=== PATIENT | female | born 1965 | race Caucasian/White ===

== ENCOUNTER → 2016-06-09 | Outpatient (CLI) | payer OTHER ==
[~2016-06-09] MED LIST: AC500T PO; ACCUPRIL; ACET325T38 PO; ACHD5005 PO; AGM875T PO; ALBU0.632 IH; ALBU17AE23 IH; ALBU17AE3 IH; ALBU2.5V4 IH; ALBU8.5H2 IH; ALPR1T; ALPR1T PO; ALPR1TAB PO; ALPR1TAB2 PO; AMIT150T PO; AMIT25TA9 PO; AMLO10TA82 PO; AMOX500C2 PO; ARPZ10T PO; ASPI-954 PO; ASPI1TAB PO; AZIT-21 PO; BENZ200C25 PO; BETA BLOCKER; BP MED; BSP10T PO; CEFP500T4 PO; CEPH500C PO; CLON0.5T25 PO; CLON1TAB3 PO; CPR500T PO; CYCL10TA9 PO; DCS100C PO; DOXY100C2 PO; DULO60CA6 PO; FLUT1DIS26 IH; GABA-486 PO; GABA-488 PO; GUAI400T51 PO; HYDR-2997 PO; HYDR12.56 PO; HYDR50TA3 PO; IBP800T PO; IBUP-15 PO; IBUP-30 PO; INSU100I16 SQ; IPRA3AMP11 INH; IPRA3AMP19 IH; IPRA4AER IH; LEVO750T24 PO; LINE600T5 PO; LNZ600T PO; LUBI24CA6 PO; LYSI500T13 PO; Levofloxacin PO; MAGN400T6 PO; METF500T8 PO; METH4TAB PO; METR500T PO; MTF500T PO; NABU750T PO; NAPR550T PO; NFCHLORT25 PO; NFPRILOC40 PO; NORT25CA PO; OLAN10TA19 PO; OMEG1CAP51 PO; ONDA8TAB9 PO; ONDAN4ODT PO; ONDN4T PO; OXYB5TAB9 PO; PNT40TEC PO; PRD10T PO; PRD20T PO; PRD50T PO; PREG50C PO; PRM25T PO; PROM25SU10 PR; PROP120C36 PO; PROP80CA4 PO; QUET50TA PO; RT-ALBUINH IH; RT-COMBINH IH; SENN1TAB76 PO; SULF1TAB38 PO; TIOT18CA IH; TIOT18CA2 IH; TOPI100T11 PO; TOPI100T2 PO; TOPI50TA2 PO; TPR25T PO; TRAM50TA2 PO; TRM50T PO; VARE1TAB17 PO; VERA80TA PO; VITAMIN D; ZLP10T PO; [UNRECOGNIZED DRUG - OTHER]; [UNRECOGNIZED DRUG - OTHER] INH
--- NOTE | 2016-06-10 19:15 | Diagnostic Imaging Report ---
EXAMINATION: Digital mammogram bilateral screening. INDICATION: Screening. COMPARISON: This study was compared to the prior exam of 03/19/2011. At this time, there are no current complaints. The current study was also evaluated with a Computer Aided Detection (CAD) system. FINDINGS: There is a mild amount of fibroglandular tissue present in both breasts, similar to the prior exam. No primary or secondary sign of malignancy is noted. IMPRESSION: 1. There is no evidence of malignancy. 2. The patient should have her annual bilateral screening mammogram on schedule in June of 2017. ACR BI-RADS Category 1: Negative. Result letter will be mailed to the patient. Note: At least 10% of breast cancer is not imaged by mammography. Dictated by: Dictated on workstation # [id number]
== END ==
LOC: RAD 10:54
PROVIDERS: ATTEND Nurse Practitioner Community Health
DX: Z12.31 Encounter for screening mammogram for malignant neoplasm of breast (principal)
CPT/HCPCS: 77067

== ENCOUNTER → 2016-09-08 | Outpatient (CLI) | payer OTHER ==
--- NOTE | 2016-09-08 11:51 | Diagnostic Imaging Report ---
INDICATION: Shortness of air and wheezing. COMPARISON: 01/06/2016. FINDINGS: Linear atelectasis within the lingula. Otherwise, lungs are clear. No pleural effusion or pneumothorax. Stable borderline cardiomegaly. Normal pulmonary vasculature. IMPRESSION: Left basilar linear atelectasis. No acute cardiopulmonary process. Dictated by: Dictated on workstation # [id number]
== END ==
LOC: RAD 11:26
PROVIDERS: ATTEND Nurse Practitioner Family
DX: J98.11 Atelectasis (principal); F17.200 Nicotine dependence, unspecified, uncomplicated; R06.2 Wheezing
CPT/HCPCS: 71020

== ENCOUNTER 2016-09-20 15:22 | Inpatient (IN) | payer OTHER ==
[~2016-09-20] VITALS: Ht 177.8 cm; Wt 119.8 kg
--- OUTSIDE RECORDS SUMMARY | 2016-09-20 15:28 | XMS REPORT ---
Author Author DAVID CORNEJO [facility] eClinicalWorks Address Unknown Phone Unavailable Care Team Providers Care Resident Buyer Name Role Phone DAVID CORNEJO Unavailable Allergies No Known Allergies Problems Problem Type Condition Code Onset Dates Condition Status Problem Headache 784.0 Active Problem Urinary tract infection, site not specified 599.0 Active Problem Obstructive chronic bronchitis, with (acute) exacerbation 491.21 Active Problem Need for prophylactic vaccination and inoculation, Influenza V04.81 Active Problem Abdominal pain, epigastric 789.06 Active Problem Unspecified vitamin D deficiency 268.9 Active Problem Unspecified disorder of kidney and ureter 593.9 Active Problem Cervicalgia 723.1 Active Problem Pain in joint, pelvic region and thigh 719.45 Active Problem Acute sinusitis, unspecified 461.9 Active Problem Pure hyperglyceridemia 272.1 Active Problem Anxiety disorder, unspecified F41.9 Active Problem Special screening examination, human papillomavirus [HPV] V73.81 Active Problem Irregular menstrual cycle 626.4 Active Problem Diabetes mellitus without mention of complication, type II or unspecified type, uncontrolled 250.02 Active Problem Abdominal pain, unspecified site 789.00 Active Problem Unspecified peripheral vertigo 386.10 Active Problem Unspecified breast screening V76.10 Active Problem Screening for malignant neoplasm of the cervix V76.2 Active Problem Thrush B37.0 Active Problem Anxiety F41.9 Active Problem Examination of eyes and vision V72.0 Active Problem 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 Active Problem Pain in joint, lower leg 719.46 Active Problem Pain in joint, shoulder region 719.41 Active Problem Abdominal pain, right upper quadrant 789.01 Active Problem Major depressive disorder, recurrent, moderate F33.1 Active Problem Volume depletion, unspecified 276.50 Active Problem Diabetes mellitus without mention of complication, type II or unspecified type, not stated as uncontrolled 250.00 Active Problem Diarrhea 787.91 Active Problem Pain in joint, ankle and foot 719.47 Active Problem Other specified drug dependence, unspecified abuse 304.60 Active Problem Vomiting alone 787.03 Active Problem Dehydration 276.51 Active Problem Acute upper respiratory infections of unspecified site 465.9 Active Problem Unspecified hemorrhoids without mention of complication 455.6 Active Problem Unspecified viral infection, in conditions classified elsewhere and of unspecified site 079.99 Active Problem Migraine G43.909 Active Problem Intestinal infection due to other organism, NEC 008.8 Active Problem Tobacco abuse Z72.0 Active Problem TMJ (sprain of temporomandibular joint) S03.4XXA Active Problem Encounter for tobacco use cessation counseling Z71.6 Active Problem Diabetes E11.9 Active Problem Chronic constipation K59.09 Active Problem Dry mouth R68.2 Active Problem Left knee pain M25.562 Active Problem Chest pain, unspecified 786.50 Active Problem Acute bronchitis with COPD J44.0 Active Problem Cough 786.2 Active Problem Knee pain, left M25.562 Active Problem Unspecified bacterial pneumonia 482.9 Active Problem Yeast vaginitis B37.3 Active Problem Methicillin resistant Staphylococcus aureus 041.12 Active Problem Memory loss R41.3 Active Problem Pneumonia due to other Streptococcus 482.39 Active Problem Enthesopathy of hip region 726.5 Active Problem Other, mixed, or unspecified nondependent drug abuse, 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
[2016-09-20] MEDS ORDERED: RT-ALBUTEROL/IPRATROPIUM 3 ML (DUONEB) VIAL ONE ×2 (15:29→19:44)
--- OUTSIDE RECORDS SUMMARY | 2016-09-20 15:29 | XMS REPORT ---
Author Author DAVID CORNEJO [facility] eClinicalWorks Address Unknown Phone Unavailable Care Team Providers Care Manager Baby Name Role Phone DAVID CORNEJO Unavailable Allergies No Known Allergies Problems Problem Type Condition Code Onset Dates Condition Status Problem Dehydration 276.51 Active Problem Intestinal infection due to other organism, NEC 008.8 Active Problem Unspecified hemorrhoids without mention of complication 455.6 Active Problem Acute upper respiratory infections of unspecified site 465.9 Active Problem Unspecified viral infection, in conditions classified elsewhere and of unspecified site 079.99 Active Problem Pneumonia due to other Streptococcus 482.39 Active Problem Methicillin resistant Staphylococcus aureus 041.12 Active Problem Unspecified bacterial pneumonia 482.9 Active Problem Cough 786.2 Active Problem Unspecified disorder of kidney and ureter 593.9 Active Problem Chest pain, unspecified 786.50 Active Problem Cervicalgia 723.1 Active Problem Nausea with vomiting 787.01 Active Problem Pain in joint, pelvic region and thigh 719.45 Active Problem Pure hyperglyceridemia 272.1 Active Problem Acute sinusitis, unspecified 461.9 Active Problem Abdominal pain, unspecified site 789.00 Active Problem Screening for malignant neoplasm of the cervix V76.2 Active Problem Other specified symptom associated with female genital organs 625.8 Active Problem Dysuria 788.1 Active Problem Pain in joint, lower leg 719.46 Active Problem Unspecified peripheral vertigo 386.10 Active Problem Sprain and strain of other specified sites of hip and thigh 843.8 Active Problem Pain in joint, shoulder region 719.41 Active Problem Irregular menstrual cycle 626.4 Active Problem Abdominal pain, right upper quadrant 789.01 Active Problem Diabetes mellitus without mention of complication, type II or unspecified type, uncontrolled 250.02 Active Problem Major depressive disorder, recurrent, moderate F33.1 Active Problem Unspecified breast screening V76.10 Active Problem Anxiety disorder, unspecified F41.9 Active Problem Special screening examination, human papillomavirus [HPV] V73.81 Active Problem Diabetes mellitus without mention of complication, type II or unspecified type, not stated as uncontrolled 250.00 Active Problem Urinary tract infection, site not specified 599.0 Active Problem Volume depletion, unspecified 276.50 Active Problem Headache 784.0 Active Problem Vomiting alone 787.03 Active Problem Enthesopathy of hip region 726.5 Active Problem Other specified drug dependence, unspecified abuse 304.60 Active Problem Other, mixed, or unspecified nondependent drug abuse, 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 Active Problem Pain in joint, ankle and foot 719.47 Active Problem Abdominal pain, epigastric 789.06 Active Problem Diarrhea 787.91 Active Problem Unspecified vitamin D deficiency 268.9 Active Problem Need for prophylactic vaccination and inoculation, Influenza V04.81 Active Problem Obstructive chronic bronchitis, with (acute) exacerbation 491.21 Active Medications Medication Code System Code Instructions Start Date End Date Status Dosage Cymbalta [facility] [address]-77 60 MG Orally PALS Once a day Dec 20, [address] [facility] [address]-44 150 MG Orally Once a day Jan 19, 2015 1 tablet in the evening Amitriptyline HCl [facility] [address]-31 100 MG Orally voucher Once a day Jan 1 tablet Results No Known Results Summary Purpose eClinicalWorks Submission
--- OUTSIDE RECORDS SUMMARY | 2016-09-20 15:29 | XMS REPORT ---
Author Author ALIZA CARTER [facility] eClinicalWorks Address Unknown Phone Unavailable Care Team Providers Care Roll Mechanic Name Role Phone ALIZA CARTER CP Unavailable Allergies No Known Allergies Problems Problem Type Condition Code Onset Dates Condition Status Problem Acute upper respiratory infections of unspecified site 465.9 Active Problem Dehydration 276.51 Active Problem Unspecified viral infection, in conditions classified elsewhere and of unspecified site 079.99 Active Problem Unspecified hemorrhoids without mention of complication 455.6 Active Problem Pneumonia due to other Streptococcus 482.39 Active Problem Methicillin resistant Staphylococcus aureus 041.12 Active Problem Anxiety disorder, unspecified F41.9 Active Problem Unspecified bacterial pneumonia 482.9 Active Problem Cough 786.2 Active Problem Chest pain, unspecified 786.50 Active Problem Cervicalgia 723.1 Active Problem Nausea with vomiting 787.01 Active Problem Pain in joint, pelvic region and thigh 719.45 Active Problem Sprain and strain of other specified sites of hip and thigh 843.8 Active Problem Acute sinusitis, unspecified 461.9 Active Problem Diabetes mellitus without mention of complication, type II or unspecified type, uncontrolled 250.02 Active Problem Pure hyperglyceridemia 272.1 Active Problem Unspecified peripheral vertigo 386.10 Active Problem Abdominal pain, unspecified site 789.00 Active Problem Enthesopathy of hip region 726.5 Active Problem Other specified symptom associated with female genital organs 625.8 Active Problem Pain in joint, ankle and foot 719.47 Active Problem 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 Active Problem Dysuria 788.1 Active Problem Pain in joint, lower leg 719.46 Active Problem Special screening examination, human papillomavirus [HPV] V73.81 Active Problem Pain in joint, shoulder region 719.41 Active Problem Irregular menstrual cycle 626.4 Active Problem Abdominal pain, right upper quadrant 789.01 Active Problem Screening for malignant neoplasm of the cervix V76.2 Active Problem Major depressive disorder, recurrent, moderate F33.1 Active Problem Unspecified breast screening V76.10 Active Problem Volume depletion, unspecified 276.50 Active Problem Headache 784.0 Active Problem Intestinal infection due to other organism, NEC 008.8 Active Problem Need for prophylactic vaccination and inoculation, Influenza V04.81 Active Problem Other specified drug dependence, unspecified abuse 304.60 Active Problem Other, mixed, or unspecified nondependent drug abuse, 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 Active Problem Diabetes mellitus without mention of complication, type II or unspecified type, not stated as uncontrolled 250.00 Active Problem Urinary tract infection, site not specified 599.0 Active Problem Diarrhea 787.91 Active Problem Unspecified vitamin D deficiency 268.9 Active Problem Vomiting alone 787.03 Active Problem Unspecified disorder of kidney and ureter 593.9 Active Problem Obstructive chronic bronchitis, with (acute) exacerbation 491.21 Active Problem Abdominal pain, epigastric 789.06 Active Medications Medication Code System Code Instructions Start Date End Date Status Dosage Advair Diskus [facility] [address]-61 250 mcg-50 mcg Dec 09, 2013 1 puffs by Inhalation route 2 times per day Ventolin HFA [facility] [address]-55 90 mcg/actuation Dec 09, 2013 inhale 2-4 puff by Inhalation route as needed every 4 hours PRN for cough or wheeze Spiriva HandiHaler [facility] [address]-46 18 MCG Inhalation Once a day 1 capsule Results No Known Results Summary Purpose eClinicalWorks Submission
--- OUTSIDE RECORDS SUMMARY | 2016-09-20 15:29 | XMS REPORT ---
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 Active Problem Headache 784.0 Active 32581199 Problem Need for prophylactic vaccination and inoculation, Influenza V04.81 Active 013908598 Problem Obstructive chronic bronchitis, with (acute) exacerbation 491.21 Active 411231351 Problem Abdominal pain, epigastric 789.06 Active 11740771 Problem Unspecified vitamin D deficiency 268.9 Active 11947820 Problem Unspecified disorder of kidney and ureter 593.9 Active 578816220 Problem Cervicalgia 723.1 Active 60854729 Problem Pure hyperglyceridemia 272.1 Active 895347567 Problem Acute sinusitis, unspecified 461.9 Active 80590734 Problem Pain in joint, pelvic region and thigh 719.45 Active 369927390 Problem Examination of eyes and vision V72.0 Active 846163750 Problem 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 Active Problem Diabetes mellitus without mention of complication, type II or unspecified type, uncontrolled 250.02 Active 293065760 Problem Irregular menstrual cycle 626.4 Active 62118616 Problem Migraine G43.909 Active 66624017 Problem Tobacco abuse Z72.0 Active 41767739 Problem Thrush B37.0 Active 99997309 Problem Anxiety F41.9 Active 84653196 Problem Major depressive disorder, recurrent, moderate F33.1 Active 81123918 Problem Anxiety disorder, unspecified F41.9 Active 046700866 Problem Vomiting alone 787.03 Active 908176695 Problem Diarrhea 787.91 Active 31900128 Problem Pain in joint, shoulder region 719.41 Active 476003663 Problem Abdominal pain, right upper quadrant 789.01 Active 727731147 Problem Pain in joint, ankle and foot 719.47 Active 822705946 Problem Pain in joint, lower leg 719.46 Active 922540056 Problem Diabetes mellitus without mention of complication, type II or unspecified type, not stated as uncontrolled 250.00 Active 693678588 Problem Volume depletion, unspecified 276.50 Active 89319931 Problem Intestinal infection due to other organism, NEC 008.8 Active 12156607 Problem Dehydration 276.51 Active 71975997 Problem TMJ (sprain of temporomandibular joint) S03.4XXA Active 32091582 Problem Other specified drug dependence, unspecified abuse 304.60 Active Problem Diabetes E11.9 Active 333764832 Problem Encounter for tobacco use cessation counseling Z71.6 Active 122726097 Problem Acute bronchitis with COPD J44.0 Active 785084660201248 Problem Knee pain, left M25.562 Active 71024935 Problem Bipolar disorder, unspecified F31.9 Active 88133043 Problem Left knee pain M25.562 Active 22883277 Problem Methicillin resistant Staphylococcus aureus 041.12 Active 824586496 Problem Yeast vaginitis B37.3 Active 76084527 Problem Pneumonia due to other Streptococcus 482.39 Active 90166468 Problem Memory loss R41.3 Active 27704262 Problem Unspecified viral infection, in conditions classified elsewhere and of unspecified site 079.99 Active 09093595 Problem Chronic constipation K59.09 Active 140769773 Problem Unspecified hemorrhoids without mention of complication 455.6 Active 42523436 Problem Dry mouth R68.2 Active 00912402 Problem Acute upper respiratory infections of unspecified site 465.9 Active 52417756 Problem Sprain and strain of other specified sites of hip and thigh 843.8 Active 95889511 Problem Dysuria 788.1 Active 65995588 Problem Chest pain, unspecified 786.50 Active 92824133 Problem Nausea with vomiting 787.01 Active 30429916 Problem Unspecified bacterial pneumonia 482.9 Active 90124064 Problem Cough 786.2 Active 40699336 ALLERGIES Unknown Allergies SOCIAL HISTORY No smoking Hx information available PLAN OF CARE VITAL SIGNS MEDICATIONS Medication Instructions Dosage Frequency Start Date End Date Duration Status Neurontin 100 MG Orally Three times a day 1 capsule 8h Sep, Active RESULTS No Results PROCEDURES No Known procedures IMMUNIZATIONS No Known Immunizations
--- OUTSIDE RECORDS SUMMARY | 2016-09-20 15:30 | XMS REPORT ---
Author Author DAVID CORNEJO [facility] eClinicalWorks Address Unknown Phone Unavailable Care Team Providers Care Pharmaceutical Physician Name Role Phone DAVID CORNEJO CP Unavailable Allergies, Adverse Reactions, Alerts Substance Reaction Event Type Buspar 10 Mg Tablet made legs shaky Non Drug Allergy Amitriptyline 100 Mg Tablet weird behavior Non Drug Allergy Amitriptyline 25 Mg Tablet weird behavior Non Drug Allergy Benzodiazepines NARC ALERT Broke narc contract Non Drug Allergy Narcotic NARC ALERT Broke Narc contract Non Drug Allergy Problems Problem Type Condition Code Onset Dates Condition Status Problem Acute upper respiratory infections of unspecified site 465.9 Active Problem Dehydration 276.51 Active Problem Unspecified viral infection, in conditions classified elsewhere and of unspecified site 079.99 Active Problem Unspecified hemorrhoids without mention of complication 455.6 Active Assessment Bipolar disorder, unspecified F31.9 Active Problem Pneumonia due to other Streptococcus 482.39 Active Assessment Generalized anxiety disorder F41.1 Active Problem Methicillin resistant Staphylococcus aureus 041.12 [...] Instructions Start Date End Date Status Dosage Spiriva HandiHaler [facility] [address]-55 18 MCG Inhalation Once a day 1 capsule Seroquel XR [facility] [address]-26 300 MG Orally Once a day Feb 16, 2015 1 tablet in the evening Albuterol Sulfate [facility] [address]-54 (2.5 MG/3ML) 0.083% Inhalation Three times a day 3 ml Ventolin HFA [facility] [address]-58 90 mcg/actuation Dec 09, 2013 inhale 2-4 puff by Inhalation route as needed every 4 hours PRN for cough or wheeze Amitriptyline HCl [facility] [address]-04 100 MG Orally voucher Once a day Jan 1 tablet Cymbalta [facility] [address]-86 60 MG Orally PALS Twice a day Feb 16, 2015 1 capsule Advair Diskus [facility] [address]-04 250 mcg-50 mcg 1 puff(s) inhaled 2 times a day Dec 09, 2013 1 puffs by Inhalation route 2 times per day Procedures Procedure Coding System Code Date Office Visit, Est Pt., Level 3 CPT-4 41930 Feb 16, 2015 Vital Signs Date/Time: Feb 16, 2015 Cardiac Monitoring Heart Rate 120 bpm Weight 228.0 lbs Height 70 in BMI 32.71 Index Blood Pressure Diastolic 90 mmHg Blood Pressure Systolic 140 mmHg Results No Known Results Summary Purpose eClinicalWorks Submission
--- OUTSIDE RECORDS SUMMARY | 2016-09-20 15:30 | XMS REPORT ---
Author Author DAVID CORNEJO [facility] eClinicalWorks Address Unknown Phone Unavailable Care Team Providers Care Patient Sitter Name Role Phone DAVID CORNEJO CP Unavailable Allergies, Adverse Reactions, Alerts Substance Reaction Event Type Buspar 10 Mg Tablet made legs shaky Non Drug Allergy Benzodiazepines NARC ALERT Broke [...] 461.9 Active Problem Pure hyperglyceridemia 272.1 Active Assessment Major depressive disorder, recurrent, moderate F33.1 Active Problem Anxiety disorder, unspecified F41.9 Active Assessment Bipolar disorder, unspecified F31.9 Active Assessment Generalized anxiety disorder F41.1 Active Problem Special screening examination, human papillomavirus [...] Instructions Start Date End Date Status Dosage Cyclobenzaprine HCl [facility] 82711409191 10 MG TAKE ONE TABLET BY MOUTH THREE TIMES DAILY NEEDED FOR MUSCLE SPASM Diflucan [facility] [address]-52 150 MG Orally Once a day and may repeat in 4 days if infection not better June 14, 2015 1 tablet Amitiza [facility] [address]-76 8 MCG Orally Twice a day June 14, 2015 1 capsule with food Ventolin HFA [facility] [address]-16 90 mcg/actuation Dec 09, 2013 inhale 2-4 puff by Inhalation route as needed every 4 hours PRN for cough or wheeze Seroquel XR [facility] [address]-73 300 MG Orally Once a day Feb 16, 2015 1 tablet in the evening Cymbalta [facility] [address]-37 60 MG Orally PALS Twice a day Feb 16, 2015 1 capsule Amitriptyline HCl [facility] [address]-89 150 MG Orally Once a day May 02, 2015 1 tablet Topamax [facility] [address]-83 50 MG Orally 3 times a day (Voucher) May 02, 2015 1 tablet Advair Diskus [facility] [address]-01 250 mcg-50 mcg Dec 09, 2013 1 puffs by Inhalation route 2 times per day Spiriva HandiHaler [facility] [address]-77 18 MCG Inhalation Once a day 1 capsule Albuterol Sulfate [facility] [address]-82 (2.5 MG/3ML) 0.083% Inhalation Three times a day 3 ml Klonopin [facility] [address]-79 1 MG Orally Twice a day May 02, 2015 1 tablet Procedures Procedure Coding System Code Date MH Office Visit, Est Pt., Level 3 CPT-4 81585 June 20, 2015 No Charge CPT-4 73751 June 20, 2015 Vital Signs Date/Time: June 20, 2015 Cardiac Monitoring Heart Rate 104 bpm Weight 248.2 lbs Height 70 in BMI 35.61 Index Blood Pressure Diastolic 92 mmHg Blood Pressure Systolic 120 mmHg Results No Known Results Summary Purpose eClinicalWorks Submission
--- OUTSIDE RECORDS SUMMARY | 2016-09-20 15:30 | XMS REPORT ---
Author Author MONICA POTTER [facility] eClinicalWorks Address Unknown Phone Unavailable Care Team Providers Care Pet Stylist Name Role Phone MONICA POTTER CP Unavailable Allergies No Known Allergies Problems [...] due to other Streptococcus 482.39 Active Assessment Major depressive disorder, recurrent, moderate F33.1 Active Problem Methicillin resistant Staphylococcus aureus 041.12 [...] Dysuria 788.1 Active Problem Pain in joint, ankle and foot 719.47 Active Problem Unspecified peripheral vertigo 386.10 Active Problem Sprain and strain of other specified sites of hip and thigh 843.8 Active Problem Pain in joint, lower leg 719.46 Active Problem Irregular menstrual cycle 626.4 Active Problem Pain in joint, shoulder region 719.41 Active Problem Diabetes mellitus without mention of complication, type II or unspecified type, uncontrolled 250.02 Active Problem Abdominal pain, right upper quadrant 789.01 Active Problem Unspecified breast screening V76.10 Active Assessment Generalized anxiety disorder F41.1 Active [...] nondependent drug abuse, 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 Active Problem Social phobia 300.23 Active Problem Abdominal pain, epigastric 789.06 Active Problem Diarrhea 787.91 Active Problem Unspecified vitamin D deficiency 268.9 Active Problem Need for prophylactic vaccination and inoculation, Influenza V04.81 Active Problem Obstructive chronic bronchitis, with (acute) exacerbation 491.21 Active Medications No Known Medications Procedures Procedure Coding System Code Date Psych diagnostic evaluation, established patient CPT-4 75651 Dec 19, 2014 Results No Known Results Summary Purpose eClinicalWorks Submission
--- OUTSIDE RECORDS SUMMARY | 2016-09-20 15:30 | XMS REPORT ---
Author Author ALIZA CARTER [facility] eClinicalWorks Address Unknown Phone Unavailable Care Team Providers Care Dialysis Clinical Manager Name Role Phone ALIZA CARTER CP Unavailable Allergies No Known Allergies Problems Problem Type Condition Code Onset Dates Condition Status Problem Need for prophylactic vaccination and inoculation, Influenza V04.81 Active Problem Headache 784.0 Active Problem Abdominal pain, epigastric 789.06 Active Problem Obstructive chronic bronchitis, with (acute) exacerbation 491.21 Active Problem Unspecified vitamin D deficiency 268.9 Active Problem Unspecified disorder of kidney and ureter 593.9 Active Problem Cervicalgia 723.1 Active Problem Pain in joint, pelvic region and thigh 719.45 Active Problem Acute sinusitis, unspecified 461.9 Active Problem Pure hyperglyceridemia 272.1 Active Problem Diabetes mellitus without mention of complication, type II or unspecified type, uncontrolled 250.02 Active Assessment Edema, unspecified type R60.9 Active Problem Major depressive disorder, recurrent, moderate F33.1 Active Assessment Knee pain, left M25.562 Active Problem Anxiety disorder, unspecified F41.9 Active Problem Unspecified breast screening V76.10 Active Problem Special screening examination, human papillomavirus [HPV] V73.81 Active Problem Irregular menstrual cycle 626.4 Active Problem Unspecified peripheral vertigo 386.10 Active Problem Examination of eyes and vision V72.0 Active Problem Screening for malignant neoplasm of the cervix V76.2 Active Problem Abdominal pain, unspecified site 789.00 Active Problem Anxiety F41.9 Active Problem Migraine G43.909 Active Problem 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 Active Problem Thrush B37.0 Active Problem Pain in joint, ankle and foot 719.47 Active Problem Pain in joint, lower leg 719.46 Active Problem Pain in joint, shoulder region 719.41 Active Problem Abdominal pain, right upper quadrant 789.01 Active Problem Intestinal infection due to other organism, NEC 008.8 Active Problem Volume depletion, unspecified 276.50 Active Problem Vomiting alone 787.03 Active Problem Diarrhea 787.91 Active Problem Diabetes mellitus without mention of complication, type II or unspecified type, not stated as uncontrolled 250.00 Active Problem Other specified drug dependence, unspecified abuse 304.60 Active Problem Acute upper respiratory infections of unspecified site 465.9 Active Problem Unspecified hemorrhoids without mention of complication 455.6 Active Problem Unspecified viral infection, in conditions classified elsewhere and of unspecified site 079.99 Active Problem Pneumonia due to other Streptococcus 482.39 Active Problem Tobacco abuse Z72.0 Active Problem Dehydration 276.51 Active Problem TMJ (sprain of temporomandibular joint) S03.4XXA Active Problem Diabetes E11.9 Active Problem Knee pain, left M25.562 Active Problem Encounter for tobacco use cessation counseling Z71.6 Active Problem Left knee pain M25.562 Active Problem Chronic constipation K59.09 Active Problem Bipolar disorder, unspecified F31.9 Active Problem Nausea with vomiting 787.01 Active Problem Memory loss R41.3 Active Problem Chest pain, unspecified 786.50 Active Problem Acute bronchitis with COPD J44.0 Active Problem Cough 786.2 Active Problem Dry mouth R68.2 Active Problem Unspecified bacterial pneumonia 482.9 Active Problem Yeast vaginitis B37.3 Active Problem Methicillin resistant Staphylococcus aureus 041.12 Active Problem Other, mixed, or unspecified nondependent drug abuse, 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 Active Problem Urinary tract infection, site not specified 599.0 Active Problem Other specified symptom associated with female genital organs 625.8 Active Problem Enthesopathy of hip region 726.5 Active Problem Sprain and strain of other specified sites of hip and thigh 843.8 Active Problem Dysuria 788.1 Active Medications Medication Code System Code Instructions Start Date End Date Status Dosage Hydrochlorothiazide [facility] [address]-45 50 mg Orally Once a day September 27, 2015 1 tablet Nabumetone [facility] [address]-41 750 MG Orally Twice a day September 27, 2015 1 tablet Results No Known Results Summary Purpose eClinicalWorks Submission
--- OUTSIDE RECORDS SUMMARY | 2016-09-20 15:30 | XMS REPORT ---
Author Author THOMAS WOLF [facility] eClinicalWorks Address Unknown Phone Unavailable Care Team Providers Care Rn New Graduate Name Role Phone THOMAS WOLF Unavailable Allergies No Known Allergies Problems Problem Type Condition Code Onset Dates Condition Status Problem Obstructive chronic bronchitis, with (acute) exacerbation 491.21 Active Problem Need for prophylactic vaccination and inoculation, Influenza V04.81 Active Problem Unspecified vitamin D deficiency 268.9 Active Problem Abdominal pain, epigastric 789.06 Active Problem Unspecified disorder of kidney and ureter 593.9 Active Problem Cervicalgia 723.1 Active Problem Pain in joint, pelvic region and thigh 719.45 Active Problem Acute sinusitis, unspecified 461.9 Active Problem Pure hyperglyceridemia 272.1 Active Problem Diabetes mellitus without mention of complication, type II or unspecified type, uncontrolled 250.02 Active Problem Irregular menstrual cycle 626.4 Active Problem Abdominal pain, right upper quadrant 789.01 Active Problem Anxiety disorder, unspecified F41.9 Active Problem Major depressive disorder, recurrent, moderate F33.1 Active Problem Screening for malignant neoplasm of the cervix V76.2 Active Problem Unspecified breast screening V76.10 Active Problem Special screening examination, human papillomavirus [HPV] V73.81 Active Problem Examination of eyes and vision V72.0 Active Problem 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 Active Problem Abdominal pain, unspecified site 789.00 Active Problem Unspecified peripheral vertigo 386.10 Active Problem Migraine G43.909 Active Problem Tobacco abuse Z72.0 Active Problem Thrush B37.0 Active Problem Anxiety F41.9 Active Problem Diarrhea 787.91 Active Problem Pain in joint, ankle and foot 719.47 Active Problem Pain in joint, lower leg 719.46 Active Problem Pain in joint, shoulder region 719.41 Active Problem Dehydration 276.51 Active Problem Intestinal infection due to other organism, NEC 008.8 Active Problem Other specified drug dependence, unspecified abuse 304.60 Active Problem Vomiting alone 787.03 Active Problem Volume depletion, unspecified 276.50 Active Problem Diabetes mellitus without mention of complication, type II or unspecified type, not stated as uncontrolled 250.00 Active Problem Unspecified hemorrhoids without mention of complication 455.6 Active Problem Unspecified viral infection, in conditions classified elsewhere and of unspecified site 079.99 Active Problem Pneumonia due to other Streptococcus 482.39 Active Problem Methicillin resistant Staphylococcus aureus 041.12 Active Problem TMJ (sprain of temporomandibular joint) S03.4XXA Active Problem Acute upper respiratory infections of unspecified site 465.9 Active Problem Diabetes E11.9 Active Problem Encounter for tobacco use cessation counseling Z71.6 Active Problem Acute bronchitis with COPD J44.0 Active Problem Knee pain, left M25.562 Active Problem Bipolar disorder, unspecified F31.9 Active Problem Left knee pain M25.562 Active Problem Generalized anxiety disorder F41.1 Active Problem Sprain and strain of other specified sites of hip and thigh 843.8 Active Problem Yeast vaginitis B37.3 Active Problem Nausea with vomiting 787.01 Active Problem Memory loss R41.3 Active Problem Chest pain, unspecified 786.50 Active Problem Chronic constipation K59.09 Active Problem Cough 786.2 Active Problem Dry mouth R68.2 Active Problem Unspecified bacterial pneumonia 482.9 Active Problem Urinary tract infection, site not specified 599.0 Active Problem Headache 784.0 Active Problem Enthesopathy of hip region 726.5 Active Problem Other, mixed, or unspecified nondependent drug abuse, 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 Active Problem Dysuria 788.1 Active Problem Other specified symptom associated with female genital organs 625.8 Active Medications No Known Medications Results No Known Results Summary Purpose eClinicalWorks Submission
--- OUTSIDE RECORDS SUMMARY | 2016-09-20 15:31 | XMS REPORT ---
Author Author DAVID CORNEJO Organization [facility] Address Unknown Care Team Providers Care Cane Flume Chute Operator Name Role Phone DAVID CORENJO Unavailable PROBLEMS Type Condition ICD9-CM Code [id number] Code Onset Dates Condition Status SNOMED Code Problem Headache 784.0 Active 89756680 Problem Urinary tract infection, site not specified 599.0 Active 92594823 Problem Obstructive chronic bronchitis, with (acute) exacerbation 491.21 Active 015972822 Problem Need for prophylactic vaccination and inoculation, Influenza V04.81 Active 859789320 Problem Abdominal pain, epigastric 789.06 Active 28176639 Problem Unspecified vitamin D deficiency 268.9 Active 58203021 Problem Unspecified disorder of kidney and ureter 593.9 Active 574804306 Problem Cervicalgia 723.1 Active 27915193 Problem Pain in joint, pelvic region and thigh 719.45 Active 498637986 Problem Acute sinusitis, unspecified 461.9 Active 14604612 Problem Pure hyperglyceridemia 272.1 Active 231402903 Problem Anxiety disorder, unspecified F41.9 Active 705442915 Assessment Major depressive disorder, recurrent, moderate F33.1 Dec, Active 05918983 Problem Examination of eyes and vision V72.0 Active 301748163 Problem Irregular menstrual cycle 626.4 Active 54479915 Problem Diabetes mellitus without mention of complication, type II or unspecified type, uncontrolled 250.02 Active 960100169 Problem Anxiety F41.9 Active 76206095 Problem Migraine G43.909 Active 35333410 Problem 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 Active Problem Thrush B37.0 Active 02916760 Problem Diabetes E11.9 Active 846437778 Problem Encounter for tobacco use cessation counseling Z71.6 Active 752547180 Problem Tobacco abuse Z72.0 Active 29058054 Problem TMJ (sprain of temporomandibular joint) S03.4XXA Active 95442913 Problem Pain in joint, lower leg 719.46 Active 873622155 Problem Pain in joint, shoulder region 719.41 Active 591356915 Problem Abdominal pain, right upper quadrant 789.01 Active 978716600 Problem Major depressive disorder, recurrent, moderate F33.1 Active 26910392 Problem Volume depletion, unspecified 276.50 Active 46063604 Problem Diabetes mellitus without mention of complication, type II or unspecified type, not stated as uncontrolled 250.00 Active 002646785 Problem Diarrhea 787.91 Active 09188265 Problem Pain in joint, ankle and foot 719.47 Active 658137131 Problem Other specified drug dependence, unspecified abuse 304.60 Active Problem Vomiting alone 787.03 Active 139853440 Problem Dehydration 276.51 Active 31333010 Problem Acute upper respiratory infections of unspecified site 465.9 Active 24284386 Problem Unspecified hemorrhoids without mention of complication 455.6 Active 57222793 Problem Unspecified viral infection, in conditions classified elsewhere and of unspecified site 079.99 Active 87373212 Problem Knee pain, left M25.562 Active 90776705 Problem Intestinal infection due to other organism, NEC 008.8 Active 12480683 Problem Acute bronchitis with COPD J44.0 Active 395898242222408 Problem Memory loss R41.3 Active 61527166 Problem Dry mouth R68.2 Active 43255693 Problem Yeast vaginitis B37.3 Active 96441815 Problem Generalized anxiety disorder F41.1 Active 72745457 Problem Bipolar disorder with depression F31.30 Active 38675954 Problem Chest pain, unspecified 786.50 Active 86338804 Problem Left knee pain M25.562 Active 14867623 Problem Cough 786.2 Active 84101406 Problem Chronic constipation K59.09 Active 912975765 Problem Unspecified bacterial pneumonia 482.9 Active 72022165 Problem Bipolar disorder, current episode depressed, severe, without psychotic features F31.4 Active 54885601 Problem Methicillin resistant Staphylococcus aureus 041.12 Active 565760325 Problem Bipolar disorder, unspecified F31.9 Active 92703349 Problem Pneumonia due to other Streptococcus 482.39 Active 74471103 Problem Enthesopathy of hip region 726.5 Active 12172839 Problem Other, mixed, or unspecified nondependent drug abuse, 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 Active Problem Dysuria 788.1 Active 03884057 Problem Other specified symptom associated with female genital organs 625.8 Active Problem Nausea with vomiting 787.01 Active 32286377 Problem Sprain and strain of other specified sites of hip and thigh 843.8 Active 85357181 ALLERGIES Substance Reaction Event Type Date Status Buspar 10 Mg Tablet made legs shaky Non Drug Allergy Dec, Active Benzodiazepines NARC ALERT Broke narc contract Non Drug Allergy Dec Active Narcotic NARC ALERT Broke Narc contract Non Drug Allergy Dec, Active SOCIAL HISTORY No smoking Hx information available PLAN OF CARE VITAL SIGNS Height 70 in 2016-01-02 Weight 241.3 lbs 2016-01-02 Heart Rate 104 bpm 2016-01-02 Respiratory Rate 20 2016-01-02 BMI 34.62 kg/m2 2016-01-02 Blood pressure systolic 125 mmHg 2016-01-02 Blood pressure diastolic 90 mmHg 2016-01-02 MEDICATIONS Medication Instructions Dosage Frequency Start Date End Date Duration Status Spiriva HandiHaler 18 MCG Inhalation Once a day 1 capsule 24h Active Neurontin 300 MG Orally repository Three times a day 1 capsule 8h Dec, 30 day(s) Active Zyvox 600 MG Orally every 12 hrs 1 tablet 12h Dec, Dec, Active Albuterol Sulfate (2.5 MG/3ML) 0.083% Inhalation Three times a day 3 ml 8h Active Topamax 100 MG Orally Twice a day 1 tablet 12h 30 days Active Fish Oil 1200 MG Orally Once a day 1 capsule 24h Active One Daily Orally Once a day 1 tablet 24h Active Amitiza 24 MCG Orally Twice a day 1 capsule with food 12h Jun, 90 days Active Nabumetone 750 MG Orally Twice a day 1 tablet 12h Sep, Active Zyprexa 10 MG Orally voucher Once a day 1 tablet 24h Dec, 30 day(s) Active Cymbalta 60 MG Orally PALS Twice a day 1 capsule 12h Feb, 30 days Active Advair Diskus 250 mcg-50 mcg 1 puffs by Inhalation route 2 times per day Dec, Active Ventolin HFA 90 mcg/actuation inhale 2-4 puff by Inhalation route as needed every 4 hours PRN for cough or wheeze Dec, Active Olanzapine 2.5 MG Orally - voucher Once a day 1 tablet 24h Dec, 30 day(s) Active Hydrochlorothiazide 50 mg Orally Once a day 1 tablet 24h Sep, Active RESULTS No Results PROCEDURES Procedure Date Ordered Related Diagnosis Body Site MH Office Visit, Est Pt., Level 3 Jan 02, 2016 IMMUNIZATIONS No Known Immunizations
--- OUTSIDE RECORDS SUMMARY | 2016-09-20 15:31 | XMS REPORT ---
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
--- OUTSIDE RECORDS SUMMARY | 2016-09-20 15:31 | XMS REPORT ---
Author Author ALIZA CARTER [facility] eClinicalWorks Address Unknown Phone Unavailable Care Team Providers Care Traffic Operations Manager Name Role Phone ALIZA CARTER CP [...]
--- OUTSIDE RECORDS SUMMARY | 2016-09-20 15:32 | XMS REPORT ---
Author Author DAVID CORNEJO [facility] eClinicalWorks Address Unknown Phone Unavailable Care Team Providers Care Margin Trimmer Name Role Phone DAVID CORNEJO Unavailable Allergies [...]
--- OUTSIDE RECORDS SUMMARY | 2016-09-20 15:32 | XMS REPORT ---
Author Author DAVID CORNEJO [facility] eClinicalWorks Address Unknown Phone Unavailable Care Team Providers Care Insurance Investigator Name Role Phone DAVID CORNEJO CP Unavailable [...] Problem Unspecified breast screening V76.10 Active Assessment Bipolar disorder, unspecified F31.9 Active Problem Special screening examination, human papillomavirus [...] Date End Date Status Dosage Advair Diskus [facility] [address]-24 250 mcg-50 mcg 1 puff(s) inhaled 2 times a day Dec 09, 2013 1 puffs by Inhalation route 2 times per day HydrOXYzine Pamoate [facility] [address]-18 25 MG Orally voucher every 6 hrs Dec 20, 2014 1 capsule as needed Albuterol Sulfate [facility] [address]-43 (2.5 MG/3ML) 0.083% Inhalation Three times a day 3 ml Spiriva HandiHaler [facility] [address]-10 18 MCG Inhalation Once a day 1 capsule Trazodone HCl [facility] [address]-44 100 MG Orally voucher or PALS Once a day Dec 20, 2014 1 tablet at bedtime Cymbalta [facility] [address]-51 60 MG Orally PALS Once a day Dec 20, 2014 1 capsule Seroquel XR [facility] [address]-41 50 MG Orally PALS twice a day Dec 20, 2014 1 tablet Ventolin HFA [facility] [address]-79 90 mcg/actuation Dec 09, 2013 inhale 2-4 puff by Inhalation route as needed every 4 hours PRN for cough or wheeze Procedures Procedure Coding System Code Date Psych diagnostic evaluation w/medical services, new patient CPT-4 51753 Dec 20, 2014 Vital Signs Date/Time: Dec 20, 2014 Cardiac Monitoring Heart Rate 100 bpm Weight 220.7 lbs Height 70 in BMI 31.66 Index Blood Pressure Diastolic 86 mmHg Blood Pressure Systolic 124 mmHg Results No Known Results Summary Purpose eClinicalWorks Submission
--- OUTSIDE RECORDS SUMMARY | 2016-09-20 15:32 | XMS REPORT ---
Author Author DAVID CORNEJO [facility] eClinicalWorks Address Unknown Phone Unavailable Care Team Providers Care Drier Unloader Name Role Phone DAVID CORNEJO CP Unavailable Allergies, Adverse Reactions, Alerts Substance Reaction Event Type Benzodiazepines NARC ALERT Broke narc contract Non Drug Allergy Narcotic NARC ALERT Broke Narc contract Non Drug Allergy Buspar 10 Mg Tablet made legs shaky Non Drug Allergy Problems Problem Type Condition [...] Active Problem Pure hyperglyceridemia 272.1 Active Assessment Bipolar disorder, unspecified F31.9 Active Problem Anxiety disorder, unspecified F41.9 Active Assessment Generalized anxiety disorder F41.1 Active Assessment Major depressive disorder, recurrent, moderate F33.1 Active Problem Special screening examination, human papillomavirus [...] Instructions Start Date End Date Status Dosage Neurontin [facility] [address]-44 100 MG Orally Three times a day September 12, 2015 as directed Spiriva HandiHaler [facility] [address]-59 18 MCG Inhalation Once a day 1 capsule Ventolin HFA [facility] [address]-47 90 mcg/actuation Dec 09, 2013 inhale 2-4 puff by Inhalation route as needed every 4 hours PRN for cough or wheeze Cymbalta [facility] [address]-06 60 MG Orally PALS Twice a day Feb 16, 2015 1 capsule Albuterol Sulfate [facility] [address]-49 (2.5 MG/3ML) 0.083% Inhalation Three times a day 3 ml Topamax [facility] [address]-13 100 MG Orally Twice a day May 02, 2015 1 tablet Advair Diskus [facility] [address]-96 250 mcg-50 mcg Dec 09, 2013 1 puffs by Inhalation route 2 times per day Amitriptyline HCl [facility] [address]-47 150 MG Orally Once a day May 02, 2015 1 tablet Klonopin [facility] [address]-44 1 MG Orally Twice a day May 02, 2015 1 tablet Procedures Procedure Coding System Code Date Office Visit, Est Pt., Level 3 CPT-4 34230 September 12, 2015 Vital Signs Date/Time: September 12, 2015 Cardiac Monitoring Heart Rate 99 bpm Weight 249.0 lbs Height 70 in Blood Pressure Diastolic 96 mmHg Blood Pressure Systolic 138 mmHg Results No Known Results Summary Purpose eClinicalWorks Submission
--- OUTSIDE RECORDS SUMMARY | 2016-09-20 15:32 | XMS REPORT ---
Author Author ALIZA CARTER [facility] eClinicalWorks Address Unknown Phone Unavailable Care Team Providers Care Fingerer Name Role Phone ALIZA CARTER CP Unavailable [...] depressive disorder, recurrent, moderate F33.1 Active Assessment Yeast infection B37.9 Active Problem Anxiety disorder, unspecified F41.9 Active [...] Instructions Start Date End Date Status Dosage Diflucan [facility] [address]-55 150 MG Orally one time. May repeat in 3 days if symptoms persist. Dec 30, 2015 1 tablet Results No Known Results Summary Purpose eClinicalWorks Submission
--- OUTSIDE RECORDS SUMMARY | 2016-09-20 15:32 | XMS REPORT ---
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 Active Problem Enthesopathy of hip region 726.5 Active Problem Headache 784.0 Active Problem Urinary tract infection, site not specified 599.0 Active Problem Need for prophylactic vaccination and inoculation, Influenza V04.81 Active Problem Obstructive chronic bronchitis, with (acute) exacerbation 491.21 Active Problem Abdominal pain, epigastric 789.06 Active Problem Unspecified vitamin D deficiency 268.9 Active Problem Unspecified disorder of kidney and ureter 593.9 Active Problem Cervicalgia 723.1 Active Problem Pain in joint, pelvic region and thigh 719.45 Active Problem Diabetes mellitus without mention of complication, type II or unspecified type, uncontrolled 250.02 Active Problem Pure hyperglyceridemia 272.1 Active Problem Acute sinusitis, unspecified 461.9 Active Problem 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 Active Problem Thrush B37.0 Active Problem Irregular menstrual cycle 626.4 Active Problem Examination of eyes and vision V72.0 Active Problem Tobacco abuse Z72.0 Active Problem TMJ (sprain of temporomandibular joint) S03.4XXA Active Problem Anxiety F41.9 Active Problem Migraine G43.909 Active Problem Abdominal pain, right upper quadrant 789.01 Active Problem Major depressive disorder, recurrent, moderate F33.1 Active Problem Anxiety disorder, unspecified F41.9 Active Problem Other specified drug dependence, unspecified abuse 304.60 Active Problem Vomiting alone 787.03 Active Problem Pain in joint, lower leg 719.46 Active Problem Pain in joint, shoulder region 719.41 Active Problem Diarrhea 787.91 Active Problem Pain in joint, ankle and foot 719.47 Active Problem Volume depletion, unspecified 276.50 Active Problem Intestinal infection due to other organism, NEC 008.8 Active Problem Dehydration 276.51 Active Problem Acute upper respiratory infections of unspecified site 465.9 Active Problem Diabetes E11.9 Active Problem Diabetes mellitus without mention of complication, type II or unspecified type, not stated as uncontrolled 250.00 Active Problem Encounter for tobacco use cessation counseling Z71.6 Active Problem Knee pain, left M25.562 Active Problem Memory loss R41.3 Active Problem Acute bronchitis with COPD J44.0 Active Problem Bipolar disorder, current episode depressed, severe, without psychotic features F31.4 Active Problem Bipolar disorder, unspecified F31.9 Active Problem Generalized anxiety disorder F41.1 Active Problem Unspecified bacterial pneumonia 482.9 Active Problem Dry mouth R68.2 Active Problem Methicillin resistant Staphylococcus aureus 041.12 Active Problem Yeast vaginitis B37.3 Active Problem Pneumonia due to other Streptococcus 482.39 Active Problem Left knee pain M25.562 Active Problem Unspecified viral infection, in conditions classified elsewhere and of unspecified site 079.99 Active Problem Chronic constipation K59.09 Active Problem Unspecified hemorrhoids without mention of complication 455.6 Active Problem Dysuria 788.1 Active Problem Other specified symptom associated with female genital organs 625.8 Active Problem Nausea with vomiting 787.01 Active Problem Sprain and strain of other specified sites of hip and thigh 843.8 Active Problem Cough 786.2 Active Problem Chest pain, unspecified 786.50 Active Medications No Known Medications Results No Known Results Summary Purpose eClinicalWorks Submission
--- OUTSIDE RECORDS SUMMARY | 2016-09-20 15:33 | XMS REPORT ---
Author Author MONICA POTTER [facility] eClinicalWorks Address Unknown Phone Unavailable Care Team Providers Care Clothes Shaker Name Role Phone MONICA POTTER CP Unavailable [...] Problem Chest pain, unspecified 786.50 Active Problem Nausea with vomiting 787.01 Active Problem Sprain and strain of other specified sites of hip and thigh 843.8 Active Problem Enthesopathy of hip region 726.5 Active Problem Other specified symptom associated with female genital organs 625.8 Active Problem Dysuria 788.1 Active Problem Headache 784.0 Active Problem Need for prophylactic vaccination and inoculation, Influenza V04.81 Active Problem Other, mixed, or unspecified nondependent drug abuse, 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 Active Problem Urinary tract infection, site not specified 599.0 Active Problem Unspecified vitamin D deficiency 268.9 Active Problem Unspecified disorder of kidney and ureter 593.9 Active Problem Obstructive chronic bronchitis, with (acute) exacerbation 491.21 Active Problem Abdominal pain, epigastric 789.06 Active Assessment 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 Active Assessment Anxiety disorder, unspecified F41.9 Active Assessment Major depressive disorder, recurrent, moderate F33.1 Active Problem Anxiety disorder, unspecified F41.9 Active Problem Cervicalgia 723.1 Active Problem Pain in joint, pelvic region and thigh 719.45 Active Problem Acute sinusitis, unspecified 461.9 Active Problem Diabetes mellitus without mention of complication, type II or unspecified type, uncontrolled 250.02 Active Problem Pure hyperglyceridemia 272.1 Active Problem Unspecified peripheral vertigo 386.10 Active Problem Abdominal pain, unspecified site 789.00 Active Problem 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 Active Problem Pain in joint, ankle and foot 719.47 Active Problem Special screening examination, human papillomavirus [HPV] V73.81 Active Problem Pain in joint, lower leg 719.46 Active Problem Irregular menstrual cycle 626.4 Active Problem Pain in joint, shoulder region 719.41 Active Problem Screening for malignant neoplasm of the cervix V76.2 Active Problem Abdominal pain, right upper quadrant 789.01 Active Problem Unspecified breast screening V76.10 Active Problem Major depressive disorder, recurrent, moderate F33.1 Active Problem Volume depletion, unspecified 276.50 Active Problem Intestinal infection due to other organism, NEC 008.8 Active Problem Other specified drug dependence, unspecified abuse 304.60 Active Problem Diabetes mellitus without mention of complication, type II or unspecified type, not stated as uncontrolled 250.00 Active Problem Diarrhea 787.91 Active Problem Vomiting alone 787.03 Active Medications No Known Medications Procedures Procedure Coding System Code Date Psychotherapy, patient &/family, 45 minutes, established patient CPT-4 14479 Feb 19, 2015 Results No Known Results Summary Purpose eClinicalWorks Submission
--- OUTSIDE RECORDS SUMMARY | 2016-09-20 15:33 | XMS REPORT ---
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 Active Problem Headache 784.0 Active 03990602 Problem Need for prophylactic vaccination and inoculation, Influenza V04.81 Active 195431608 Problem Obstructive chronic bronchitis, with (acute) exacerbation 491.21 Active 138283747 Problem Abdominal pain, epigastric 789.06 Active 26844008 Problem Unspecified vitamin D deficiency 268.9 Active 45239413 Problem Unspecified disorder of kidney and ureter 593.9 Active 015542887 Problem Cervicalgia 723.1 Active 20416960 Problem Pure hyperglyceridemia 272.1 Active 579447511 Problem Acute sinusitis, unspecified 461.9 Active 45966994 Problem Pain in joint, pelvic region and thigh 719.45 Active 949995555 Problem Examination of eyes and vision V72.0 Active 652340093 Problem 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 Active Problem Diabetes mellitus without mention of complication, type II or unspecified type, uncontrolled 250.02 Active 901850254 Problem Irregular menstrual cycle 626.4 Active 50112085 Problem Migraine G43.909 Active 28944652 Problem Tobacco abuse Z72.0 Active 47048108 Problem Thrush B37.0 Active 68719653 Problem Anxiety F41.9 Active 65875743 Problem Major depressive disorder, recurrent, moderate F33.1 Active 54450846 Problem Anxiety disorder, unspecified F41.9 Active 821797392 Assessment Obesity, unspecified obesity severity, unspecified obesity type E66.9 Oct, Active 131619506 Problem Vomiting alone 787.03 Active 058440877 Problem Diarrhea 787.91 Active 75914794 Problem Pain in joint, shoulder region 719.41 Active 506277980 Problem Abdominal pain, right upper quadrant 789.01 Active 258458235 Problem Pain in joint, ankle and foot 719.47 Active 536362535 Problem Pain in joint, lower leg 719.46 Active 335605551 Problem Diabetes mellitus without mention of complication, type II or unspecified type, not stated as uncontrolled 250.00 Active 529633908 Problem Volume depletion, unspecified 276.50 Active 96511051 Problem Intestinal infection due to other organism, NEC 008.8 Active 32725155 Problem Dehydration 276.51 Active 62192333 Problem TMJ (sprain of temporomandibular joint) S03.4XXA Active 11170016 Problem Other specified drug dependence, unspecified abuse 304.60 Active Problem Diabetes E11.9 Active 022317507 Problem Encounter for tobacco use cessation counseling Z71.6 Active 318002841 Problem Acute bronchitis with COPD J44.0 Active 246173760194699 Problem Knee pain, left M25.562 Active 90083034 Problem Bipolar disorder, unspecified F31.9 Active 50734979 Problem Left knee pain M25.562 Active 34834706 Problem Methicillin resistant Staphylococcus aureus 041.12 Active 327251868 Problem Yeast vaginitis B37.3 Active 47379331 Problem Pneumonia due to other Streptococcus 482.39 Active 06457834 Problem Memory loss R41.3 Active 89340562 Problem Unspecified viral infection, in conditions classified elsewhere and of unspecified site 079.99 Active 32050285 Problem Chronic constipation K59.09 Active 282115834 Problem Unspecified hemorrhoids without mention of complication 455.6 Active 30754401 Problem Dry mouth R68.2 Active 25061668 Problem Acute upper respiratory infections of unspecified site 465.9 Active 83173874 Problem Sprain and strain of other specified sites of hip and thigh 843.8 Active 85477354 Problem Dysuria 788.1 Active 57531056 Problem Chest pain, unspecified 786.50 Active 66680243 Problem Nausea with vomiting 787.01 Active 79017127 Problem Unspecified bacterial pneumonia 482.9 Active 02047052 Problem Cough 786.2 Active 50643986 ALLERGIES Substance Reaction Event Type Date Status Buspar 10 Mg Tablet made legs shaky Non Drug Allergy Oct, Active Benzodiazepines NARC ALERT Broke narc contract Non Drug Allergy Oct Active Narcotic NARC ALERT Broke Narc contract Non Drug Allergy Oct, Active SOCIAL HISTORY No smoking Hx information available PLAN OF CARE VITAL SIGNS Height 70 in 2015-11-06 Weight 241.5 lbs 2015-11-06 Heart Rate 92 bpm 2015-11-06 Respiratory Rate 20 2015-11-06 BMI 34.65 kg/m2 2015-11-06 Blood pressure systolic 120 mmHg 2015-11-06 Blood pressure diastolic 82 mmHg 2015-11-06 MEDICATIONS Medication Instructions Dosage Frequency Start Date End Date Duration Status Advair Diskus 250 mcg-50 mcg 1 puffs by Inhalation route 2 times per day Dec, Active Ventolin HFA 90 mcg/actuation inhale 2-4 puff by Inhalation route as needed every 4 hours PRN for cough or wheeze Dec, Active Klonopin 1 MG Orally Twice a day 1 tablet 12h Apr, Active Contrave 8-90 MG Orally Twice a day 1 tablet in the PM X 7 days, 1 tab twice a day X days, 1 tab in AM and 2 in PM X 7 days 2 tabs twice a day 12h Oct, Active Spiriva HandiHaler 18 MCG Inhalation Once a day 1 capsule 24h Active Topamax 100 MG Orally Twice a day 1 tablet 12h 30 Active Hydrochlorothiazide 50 mg Orally Once a day 1 tablet 24h Sep, 30 day(s) Active Neurontin 100 MG Orally Three times a day as directed 8h Sep, 30 days Active Amitriptyline HCl 150 MG Orally Once a day 1 tablet 24h 24 Apr, 2015 30 days Active Amitiza 24 MCG Orally Twice a day 1 capsule with food 12h Jun, Active Cymbalta 60 MG Orally PALS Twice a day 1 capsule 12h Feb, 30 days Active Albuterol Sulfate (2.5 MG/3ML) 0.083% Inhalation Three times a day 3 ml 8h Active RESULTS No Results PROCEDURES Procedure Date Ordered Related Diagnosis Body Site Office Visit, Est Pt., Level 3 Nov 06, 2015 IMMUNIZATIONS No Known Immunizations
--- OUTSIDE RECORDS SUMMARY | 2016-09-20 15:33 | XMS REPORT ---
Author Author ALICIA VALENCIA [facility] eClinicalWorks Address Unknown Phone Unavailable Care Team Providers Care Nail Professional Name Role Phone ALICIA VALENCIA Unavailable Allergies No Known Allergies Problems Problem [...] 843.8 Active Problem Dysuria 788.1 Active Medications No Known Medications Results No Known Results Summary Purpose eClinicalWorks Submission
--- OUTSIDE RECORDS SUMMARY | 2016-09-20 15:33 | XMS REPORT ---
Author Author HAYLEE GUDINO [facility] eClinicalWorks Address Unknown Phone Unavailable Care Team Providers Care Automotive Product Specialist Name Role Phone HAYLEE GUDINO Unavailable Allergies [...] Problem Anxiety disorder, unspecified F41.9 Active Assessment Osteoarthritis of left knee M17.9 Active Problem Special screening examination, human papillomavirus [...] Office Visit, Est Pt., Level 3 CPT-4 80987 June 21, 2015 DEPO MEDROL 80 MG/ML CPT-4 J1040 June 21, 2015 DRAIN/INJECT, JOINT/BURSA CPT-4 34448 June 21, 2015 Vital Signs Date/Time: June 21, 2015 Blood Pressure Diastolic 90 mmHg Blood Pressure Systolic 138 mmHg Height 70 in Results Name Result Date Reference Range Unit Abnormality Flag JOINT INJECTION-LARGE JOINT (specify site) Summary Purpose eClinicalWorks Submission
--- OUTSIDE RECORDS SUMMARY | 2016-09-20 15:33 | XMS REPORT ---
Author Author [facility] Medical Staff Organization [facility] Address [address] [place], [place] [id number] Phone [phone] Care Team Providers Care Neurosurgical Physician Assistant Name Role Phone ORTIZ TYSON MD PP [phone] ORTIZ TYSON MD, PP [phone] Summary purpose CCDA Sent to [facility] Chief Complaint and Reason for Visit Admit Diagnosis 1 MIGRAINE Problem list No authorized problems tracked for continuity of care are available for this visit. Encounters No authorized problems tracked for encounter diagnoses are available for this visit. Medications No medications recorded for this patient visit Allergies, adverse reactions, alerts Allergen Category Ingredient Status Reaction Severity Onset No Known Drug Allergy No known drug allergies No Known Drug Allergy Active Immunizations No immunizations recorded for this patient visit Relevant diagnostic tests and/or laboratory data No authorized results are available for this patient visit History of procedures Procedure Code Code Type Description Date Performed Performing Physician J1885 CPT-4 KETOROLAC TROMETHAMINE INJ 03-04-2016 YOUNG [facility]TERFIELD J2550 CPT-4 PROMETHAZINE HCL INJECTION 03-04-2016 [facility] 06321 CPT-4 EMERGENCY DEPT VISIT 03-04-2016 [facility] 83078 CPT-4 THER/PROPH/DIAG INJ, SC/IM 03-04-2016 YOUNG [facility]FIELD Functional status Cognitive Status Finding Observation Time Level of Consciousne Alert :50 Oriented to Person Yes :[address] Yes :50 Oriented to Time Yes :50 Eyes - ROSITA Yes :50 Right Pupil Reaction Brisk Constriction :50 Pupil Gauge - Right 3 mm :50 Left Pupil Reaction Brisk Constriction :50 Pupil Gauge - Left E 3 mm :50 Vital signs Type Value Date Respirations 20 96-03-559507:38 Pulse 104 :38 O2 Saturation 97% :38 Systolic Blood Press 120mm/HG 97-19-053058:38 Diastolic Blood Pres 86mm/HG :38 Temperature (Fahr) 97Degrees 84-40-462214:38 Height 69in :50 Weight 233LB 21-38-595746:50 Social history Type Value Smoking Status CURRENT EVERY DAY SMOKER Treatment Plan No treatment plan text is available for this visit. Hospital discharge instructions Diagnosis migraine headache Diet as tolerated Activity Level astolerated Follow up with pcp Appointment Date and this week
--- OUTSIDE RECORDS SUMMARY | 2016-09-20 15:33 | XMS REPORT ---
Author JAMIL [facility] eClinicalWorks Address Unknown Phone Unavailable Care Team Providers Care Homicide Investigator Name Role Phone JAMIL WEISS Unavailable Allergies, Adverse Reactions, Alerts Substance Reaction [...] Active Problem Pure hyperglyceridemia 272.1 Active Assessment Knee pain, left M25.562 Active Problem Anxiety disorder, unspecified F41.9 Active Assessment Diabetes E11.9 Active Assessment Edema, unspecified type R60.9 Active Problem Special screening examination, human papillomavirus [...] Start Date End Date Status Dosage Hydrochlorothiazide [facility] [address]-03 50 mg Orally Once a day September 27, 2015 1 tablet Neurontin [facility] [address]-56 100 MG Orally Three times a day September 12, 2015 as directed Spiriva HandiHaler [facility] [address]-96 18 MCG Inhalation Once a day 1 capsule Albuterol Sulfate [facility] [address]-34 (2.5 MG/3ML) 0.083% Inhalation Three times a day 3 ml Cymbalta [facility] [address]-69 60 MG Orally PALS Twice a day Feb 16, 2015 1 capsule Topamax [facility] 47375700376 100 MG Orally Twice a day 1 tablet Ventolin HFA [facility] [address]-09 90 mcg/actuation Dec 09, 2013 inhale 2-4 puff by Inhalation route as needed every 4 hours PRN for cough or wheeze Advair Diskus [facility] [address]-12 250 mcg-50 mcg Dec 09, 2013 1 puffs by Inhalation route 2 times per day Nabumetone [facility] [address]-17 750 MG Orally Twice a day September 27, 2015 Oct 27, 2015 1 tablet Amitriptyline HCl [facility] [address]-02 150 MG Orally Once a day May 02, 2015 1 tablet Klonopin [facility] [address]-65 1 MG Orally Twice a day May 02, 2015 1 tablet Procedures Procedure Coding System Code Date TORADOL (IM) 60 MG/2ML (UP TO 15 MG) CPT-4 J1885 September 27, 2015 THER/PROPH/DIAG INJ, SC/IM CPT-4 92343 September 27, 2015 Office Visit, Est Pt., Level 4 CPT-4 98546 September 27, 2015 PHENERGAN 50MG/ML CPT-4 J2550 September 27, 2015 Vital Signs Date/Time: September 27, 2015 Cardiac Monitoring Heart Rate 84 bpm Weight 255.3 lbs Height 70 in Blood Pressure Diastolic 90 mmHg Blood Pressure Systolic 136 mmHg Results No Known Results Summary Purpose eClinicalWorks Submission
--- OUTSIDE RECORDS SUMMARY | 2016-09-20 15:34 | XMS REPORT ---
Author Author AYDEN KNIGHT [facility] eClinicalWorks Address Unknown Phone Unavailable Care Team Providers Care Oncology Technician Name Role Phone AYDEN KNIGHT Unavailable Allergies, Adverse Reactions, Alerts Substance Reaction Event Type Buspar 10 Mg Tablet made legs shaky Non Drug Allergy Amitriptyline 100 Mg Tablet weird behavior Non Drug Allergy Amitriptyline 25 Mg Tablet weird behavior Non Drug Allergy Benzodiazepines NARC ALERT Broke narc contract Non Drug Allergy Narcotic NARC ALERT Broke Narc contract Non Drug Allergy Problems Problem Type Condition ICD-9 Code Onset Dates Condition Status Problem Dehydration 276.51 Active Problem Intestinal infection due to other organism, NEC 008.8 Active Problem Unspecified hemorrhoids without mention of complication 455.6 Active Problem Acute upper respiratory infections of unspecified site 465.9 Active Assessment Dysuria 788.1 Active Problem Unspecified viral infection, in conditions classified elsewhere and of unspecified site 079.99 Active Assessment Vomiting and diarrhea 787.03 Active Problem Pneumonia due to other Streptococcus 482.39 Active Assessment Cough 786.2 Active Problem Methicillin resistant Staphylococcus aureus 041.12 [...] Problem Unspecified breast screening V76.10 Active Assessment Headache 784.0 Active Problem Special screening examination, human papillomavirus [...] Instructions Start Date End Date Status Dosage Ventolin HFA [facility] [address]-44 90 mcg/actuation Dec 09, 2013 inhale 2-4 puff by Inhalation route as needed every 4 hours PRN for cough or wheeze Doxycycline Hyclate [facility] [address]-77 100 MG Orally every 12 hrs Oct 30, 2014 Nov 09, 2014 1 capsule Spiriva HandiHaler [facility] [address]-30 18 MCG Inhalation Once a day 1 capsule Advair Diskus [facility] [address]-10 250 mcg-50 mcg 1 puff(s) inhaled 2 times a day Dec 09, 2013 1 puffs by Inhalation route 2 times per day Phenergan [facility] [address]-14 25 MG Oral every 6 hrs prn nausea Oct 30, 2014 Nov 02, 2014 1 tablet Acidophilus [facility] 28464-[address]87 100 MG Orally 2-3 times daily prn diarrhea Oct 30, 2014 1 capsule Procedures Procedure Coding System Code Date MEASURE BLOOD OXYGEN LEVEL CPT-4 73856 Oct 30, 2014 TORADOL (IM) 60 MG/2ML (UP TO 15 MG) CPT-4 J1885 Oct 30, 2014 Office Visit, Est Pt., Level 3 CPT-4 30302 Oct 30, 2014 URINALYSIS, AUTO, W/O SCOPE CPT-4 29829 Oct 30, 2014 THER/PROPH/DIAG INJ, SC/IM CPT-4 84921 Oct 30, 2014 PHENERGAN (IM) 25 MG (25 MG/ML) CPT-4 J2550 Oct 30, 2014 Vital Signs Date/Time: Oct 30, 2014 Temperature 98.6 F Weight 209.8 lbs Height 70 in Oximetry at rest:99 % Blood Pressure Diastolic 80 mmHg Blood Pressure Systolic 160 mmHg Cardiac Monitoring Heart Rate 100 bpm BMI 30.10 Index Results Name Result Date Reference Range Unit Abnormality Flag UA W/CULTURE IF INDICATED (IN HOUSE) Summary Purpose eClinicalWorks Submission
--- OUTSIDE RECORDS SUMMARY | 2016-09-20 15:34 | XMS REPORT ---
Author Author DAVID CORNEJO [facility] eClinicalWorks Address Unknown Phone Unavailable Care Team Providers Care Optics Test Technician Name Role Phone DAVID CORNEJO Unavailable Allergies [...] Start Date End Date Status Dosage Klonopin [facility] [address]-23 1 MG Orally Twice a day May 02, 2015 1 tablet Results No Known Results Summary Purpose eClinicalWorks Submission
--- OUTSIDE RECORDS SUMMARY | 2016-09-20 15:34 | XMS REPORT ---
Author Author ALIZA CARTER [facility] Address [address] [place] [address] Care Team Providers Care Nurse Research Name Role Phone ALIZA CARTER Unavailable PROBLEMS Type Condition ICD9-CM Code OZO61-QH Code Onset Dates Condition Status SNOMED Code Problem Headache 784.0 Active 43565509 Problem Urinary tract infection, site not specified 599.0 Active 27432266 Problem Obstructive chronic bronchitis, with (acute) exacerbation 491.21 Active 480672850 Problem Need for prophylactic vaccination and inoculation, Influenza V04.81 Active 010476383 Problem Abdominal pain, epigastric 789.06 Active 86651726 Problem Unspecified vitamin D deficiency 268.9 Active 30242357 Problem Unspecified disorder of kidney and ureter 593.9 Active 960046449 Problem Cervicalgia 723.1 Active 68027539 Problem Pain in joint, pelvic region and thigh 719.45 Active 769942011 Problem Acute sinusitis, unspecified 461.9 Active 13139467 Problem Pure hyperglyceridemia 272.1 Active 575586433 Problem Anxiety disorder, unspecified F41.9 Active 254700885 Assessment Bronchitis J40 Jan, Active 81328027 Problem Examination of eyes and vision V72.0 Active 719626233 Problem Irregular menstrual cycle 626.4 Active 21060111 Problem Diabetes mellitus without mention of complication, type II or unspecified type, uncontrolled 250.02 Active 235401140 Problem Anxiety F41.9 Active 12133875 Problem Migraine G43.909 Active 10055121 Problem 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 Active Problem Thrush B37.0 Active 89084944 Problem Diabetes E11.9 Active 862488685 Problem Encounter for tobacco use cessation counseling Z71.6 Active 242759217 Problem Tobacco abuse Z72.0 Active 89345482 Problem TMJ (sprain of temporomandibular joint) S03.4XXA Active 60692752 Problem Pain in joint, lower leg 719.46 Active 665708681 Problem Pain in joint, shoulder region 719.41 Active 440891490 Problem Abdominal pain, right upper quadrant 789.01 Active 298560801 Problem Major depressive disorder, recurrent, moderate F33.1 Active 16965086 Problem Volume depletion, unspecified 276.50 Active 86517702 Problem Diabetes mellitus without mention of complication, type II or unspecified type, not stated as uncontrolled 250.00 Active 424099467 Problem Diarrhea 787.91 Active 25221278 Problem Pain in joint, ankle and foot 719.47 Active 635973505 Problem Other specified drug dependence, unspecified abuse 304.60 Active Problem Vomiting alone 787.03 Active 345765938 Problem Dehydration 276.51 Active 68372274 Problem Acute upper respiratory infections of unspecified site 465.9 Active 52569002 Problem Unspecified hemorrhoids without mention of complication 455.6 Active 89980246 Problem Unspecified viral infection, in conditions classified elsewhere and of unspecified site 079.99 Active 30007357 Problem Knee pain, left M25.562 Active 50279689 Problem Intestinal infection due to other organism, NEC 008.8 Active 76426825 Problem Acute bronchitis with COPD J44.0 Active 617898218702008 Problem Memory loss R41.3 Active 71705404 Problem Dry mouth R68.2 Active 83458689 Problem Yeast vaginitis B37.3 Active 04558532 Problem Generalized anxiety disorder F41.1 Active 14314291 Problem Bipolar disorder with depression F31.30 Active 24375160 Problem Chest pain, unspecified 786.50 Active 63315227 Problem Left knee pain M25.562 Active 62461420 Problem Cough 786.2 Active 45144690 Problem Chronic constipation K59.09 Active 909985058 Problem Unspecified bacterial pneumonia 482.9 Active 96929586 Problem Bipolar disorder, current episode depressed, severe, without psychotic features F31.4 Active 13501982 Problem Methicillin resistant Staphylococcus aureus 041.12 Active 411312489 Problem Bipolar disorder, unspecified F31.9 Active 46899366 Problem Pneumonia due to other Streptococcus 482.39 Active 90178136 Problem Enthesopathy of hip region 726.5 Active 56614663 Problem Other, mixed, or unspecified nondependent drug abuse, 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 Active Problem Dysuria 788.1 Active 90026124 Problem Other specified symptom associated with female genital organs 625.8 Active Problem Nausea with vomiting 787.01 Active 42282828 Problem Sprain and strain of other specified sites of hip and thigh 843.8 Active 48192619 ALLERGIES Substance Reaction Event Type Date Status Buspar 10 Mg Tablet made legs shaky Non Drug Allergy Jan, Active Narcotic NARC ALERT Broke Narc contract Non Drug Allergy Jan, Active Benzodiazepines NARC ALERT Broke narc contract Non Drug Allergy Jan Active SOCIAL HISTORY No smoking Hx information available PLAN OF CARE VITAL SIGNS Height 70 in 2016-01-23 Weight 243.7 lbs 2016-01-23 Heart Rate 100 bpm 2016-01-23 Respiratory Rate 25 2016-01-23 BMI 34.96 kg/m2 2016-01-23 Blood pressure systolic 142 mmHg 2016-01-23 Blood pressure diastolic 92 mmHg 2016-01-23 MEDICATIONS Medication Instructions Dosage Frequency Start Date End Date Duration Status Nabumetone 750 MG Orally Twice a day 1 tablet 12h Sep, Active Advair Diskus 250 mcg-50 mcg 1 puffs by Inhalation route 2 times per day Dec, Active Olanzapine 2.5 MG Orally - voucher Once a day 1 tablet 24h Dec, 30 day(s) Active Zyprexa 10 MG Orally voucher Once a day 1 tablet 24h Dec, 30 day(s) Active Zyprexa 2.5 MG TAKE ONE TABLET BY MOUTH ONCE DAILY 30 Active Neurontin 300 MG Orally repository Three times a day 1 capsule 8h Dec, 30 day(s) Active Ventolin HFA 90 mcg/actuation inhale 2-4 puff by Inhalation route as needed every 4 hours PRN for cough or wheeze Dec, Active Topamax 100 MG Orally Twice a day 1 tablet 12h 30 days Active Amitriptyline HCl 150 MG TAKE ONE TABLET BY MOUTH ONCE DAILY 30 Active Contrave 8-90 MG Orally Twice a day 2 tablets 12h Oct, 90 days Active Zithromax Z-Mikie 250 MG Orally Once a day 2 tablets on the first day, then 1 tablet daily for 4 days 24h Jan, Jan, 5 day(s) Active Fish Oil 1200 MG Orally Once a day 1 capsule 24h Active Albuterol Sulfate (2.5 MG/3ML) 0.083% Inhalation Three times a day 3 ml 8h Active Cymbalta 60 MG Orally PALS Twice a day 1 capsule 12h 11 Feb, 2015 30 days Active Hydrochlorothiazide 50 mg Orally Once a day 1 tablet 24h 21 Sep, 2015 Active Spiriva HandiHaler 18 MCG Inhalation Once a day 1 capsule 24h Active One Daily Orally Once a day 1 tablet 24h Active Amitiza 24 MCG Orally Twice a day 1 capsule with food 12h Jun, 90 days Active RESULTS No Results PROCEDURES Procedure Date Ordered Related Diagnosis Body Site Office Visit, Est Pt., Level 3 Jan 23, 2016 IMMUNIZATIONS No Known Immunizations
--- OUTSIDE RECORDS SUMMARY | 2016-09-20 15:35 | XMS REPORT ---
Author Author [facility] Medical Staff Organization [facility] Address [address] [place], [place] [id number] Phone [phone] Summary purpose CCDA Sent to [facility] Chief Complaint and Reason for Visit No authorized Reason for Visit (Admitting Diagnosis) is available for this visit. Problem list No authorized problems tracked for [...] Code Type Description Date Performed Performing Physician 27764 CPT-4 EMERGENCY DEPT VISIT 03-04-2016 [place] [place] Functional status No functional or cognitive status observations are available for this visit. Vital signs No authorized vital signs are available for this visit. Social history No Social History or smoking status observations were recorded for this visit. ( Unknown if ever smoked.) Treatment Plan No treatment plan text is available for this visit. Hospital discharge instructions No discharge instruction text is available for this visit.
--- OUTSIDE RECORDS SUMMARY | 2016-09-20 15:35 | XMS REPORT ---
Author Author DAVID CORNEJO [facility] eClinicalWorks Address Unknown Phone Unavailable Care Team Providers Care Bus Assistant Name Role Phone DAVID CORNEJO CP Unavailable Allergies, Adverse Reactions, Alerts Substance Reaction Event Type Narcotic NARC ALERT Broke Narc contract Non Drug Allergy Buspar 10 Mg Tablet made legs shaky Non Drug Allergy Amitriptyline 100 Mg Tablet weird behavior Non Drug Allergy Amitriptyline 25 Mg Tablet weird behavior Non Drug Allergy Benzodiazepines NARC ALERT Broke narc contract Non Drug Allergy Problems Problem Type Condition Code Onset Dates Condition Status Problem Dehydration 276.51 Active Problem Intestinal infection due to other organism, NEC 008.8 Active Problem Unspecified hemorrhoids without mention of complication 455.6 Active Problem Acute upper respiratory infections of unspecified site 465.9 Active Problem Unspecified viral infection, in conditions classified elsewhere and of unspecified site 079.99 Active Assessment Generalized anxiety disorder F41.1 Active Problem Pneumonia due to other Streptococcus 482.39 Active Assessment Bipolar disorder, unspecified F31.9 Active Problem Methicillin resistant Staphylococcus aureus 041.12 [...] Date End Date Status Dosage Ventolin HFA [facility] [address]-89 90 mcg/actuation Dec 09, 2013 inhale 2-4 puff by Inhalation route as needed every 4 hours PRN for cough or wheeze Advair Diskus [facility] [address]-09 250 mcg-50 mcg 1 puff(s) inhaled 2 times a day Dec 09, 2013 1 puffs by Inhalation route 2 times per day Albuterol Sulfate [facility] [address]-29 (2.5 MG/3ML) 0.083% Inhalation Three times a day 3 ml Spiriva HandiHaler [facility] [address]-05 18 MCG Inhalation Once a day 1 capsule Amitriptyline HCl [facility] [address]-17 100 MG Orally voucher Once a day Jan 1 tablet Seroquel XR [facility] [address]-69 150 MG Orally Once a day Jan 19, 2015 1 tablet in the evening Cymbalta [facility] [address]-01 60 MG Orally PALS Once a day Dec 20, 2014 1 capsule Procedures Procedure Coding System Code Date Office Visit, Est Pt., Level 3 CPT-4 26919 Jan 19, 2015 Vital Signs Date/Time: Jan 19, 2015 Cardiac Monitoring Heart Rate 97 bpm Weight 223.0 lbs Height 70 in BMI 31.99 Index Blood Pressure Diastolic 100 mmHg Blood Pressure Systolic 150 mmHg Results No Known Results Summary Purpose eClinicalWorks Submission
--- OUTSIDE RECORDS SUMMARY | 2016-09-20 15:35 | XMS REPORT ---
Author Author DAVID CORNEJO [facility] eClinicalWorks Address Unknown Phone Unavailable Care Team Providers Care Family Medicine Chair Name Role Phone DAVID CORNEJO Unavailable Allergies [...] exacerbation 491.21 Active Medications No Known Medications Results No Known Results Summary Purpose eClinicalWorks Submission
--- OUTSIDE RECORDS SUMMARY | 2016-09-20 15:35 | XMS REPORT ---
Author Author ALIZA CARTER [facility] eClinicalWorks Address Unknown Phone Unavailable Care Team Providers Care Agricultural Crop Farm Manager Name Role Phone ALIZA CARTER CP [...] thigh 843.8 Active Medications No Known Medications Results No Known Results Summary Purpose eClinicalWorks Submission
--- OUTSIDE RECORDS SUMMARY | 2016-09-20 15:35 | XMS REPORT ---
Author Author ALIZA CARTER [facility] eClinicalWorks Address Unknown Phone Unavailable Care Team Providers Care Clinical Orthoptist Name Role Phone ALIZA CARTER CP Unavailable [...]
--- OUTSIDE RECORDS SUMMARY | 2016-09-20 15:36 | XMS REPORT ---
Author Author DAVID CORNEJO Organization [facility] Address Unknown Care Team Providers Care Professor Of Archaeology Name Role Phone DAVID CORNEJO Unavailable PROBLEMS Type Condition ICD9-CM Code ORS87-GK Code Onset Dates Condition Status SNOMED Code Problem Enthesopathy of hip region 726.5 Active 31713180 Problem Other specified symptom associated with female genital organs 625.8 Active Problem Urinary tract infection, site not specified 599.0 Active 97653918 Problem Other, mixed, or unspecified nondependent drug abuse, 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 Active Problem Headache 784.0 Active 11331767 Problem Need for prophylactic vaccination and inoculation, Influenza V04.81 Active 441887849 Problem Obstructive chronic bronchitis, with (acute) exacerbation 491.21 Active 847858958 Problem Abdominal pain, epigastric 789.06 Active 67335424 Problem Unspecified vitamin D deficiency 268.9 Active 75465706 Problem Unspecified disorder of kidney and ureter 593.9 Active 791607371 Problem Cervicalgia 723.1 Active 98137221 Problem Pure hyperglyceridemia 272.1 Active 825616697 Problem Acute sinusitis, unspecified 461.9 Active 51592466 Problem Pain in joint, pelvic region and thigh 719.45 Active 868892528 Problem Examination of eyes and vision V72.0 Active 123718229 Problem 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 Active Problem Diabetes mellitus without mention of complication, type II or unspecified type, uncontrolled 250.02 Active 927113911 Problem Irregular menstrual cycle 626.4 Active 05611012 Problem Migraine G43.909 Active 91975934 Problem Tobacco abuse Z72.0 Active 33317537 Problem Thrush B37.0 Active 30544666 Problem Anxiety F41.9 Active 11819422 Problem Major depressive disorder, recurrent, moderate F33.1 Active 72118942 Problem Anxiety disorder, unspecified F41.9 Active 401919320 Problem Vomiting alone 787.03 Active 994906468 Problem Diarrhea 787.91 Active 87401720 Problem Pain in joint, shoulder region 719.41 Active 445066950 Problem Abdominal pain, right upper quadrant 789.01 Active 505487331 Problem Pain in joint, ankle and foot 719.47 Active 999054482 Problem Pain in joint, lower leg 719.46 Active 462023999 Problem Diabetes mellitus without mention of complication, type II or unspecified type, not stated as uncontrolled 250.00 Active 491799768 Problem Volume depletion, unspecified 276.50 Active 25174365 Problem Intestinal infection due to other organism, NEC 008.8 Active 40994710 Problem Dehydration 276.51 Active 94608674 Problem TMJ (sprain of temporomandibular joint) S03.4XXA Active 33224442 Problem Other specified drug dependence, unspecified abuse 304.60 Active Problem Diabetes E11.9 Active 648014512 Problem Encounter for tobacco use cessation counseling Z71.6 Active 965518843 Problem Acute bronchitis with COPD J44.0 Active 380855135565103 Problem Knee pain, left M25.562 Active 96796364 Problem Bipolar disorder, unspecified F31.9 Active 29535309 Problem Left knee pain M25.562 Active 80115113 Problem Methicillin resistant Staphylococcus aureus 041.12 Active 653728452 Problem Yeast vaginitis B37.3 Active 32946777 Problem Pneumonia due to other Streptococcus 482.39 Active 16301587 Problem Memory loss R41.3 Active 21663876 Problem Unspecified viral infection, in conditions classified elsewhere and of unspecified site 079.99 Active 47424130 Problem Chronic constipation K59.09 Active 627410349 Problem Unspecified hemorrhoids without mention of complication 455.6 Active 68445080 Problem Dry mouth R68.2 Active 45574671 Problem Acute upper respiratory infections of unspecified site 465.9 Active 97983201 Problem Sprain and strain of other specified sites of hip and thigh 843.8 Active 47204300 Problem Dysuria 788.1 Active 39800357 Problem Chest pain, unspecified 786.50 Active 10681119 Problem Nausea with vomiting 787.01 Active 23151220 Problem Unspecified bacterial pneumonia 482.9 Active 92337607 Problem Cough 786.2 Active 94902962 ALLERGIES Unknown Allergies SOCIAL HISTORY No smoking Hx information available PLAN OF CARE VITAL SIGNS MEDICATIONS Medication Instructions Dosage Frequency Start Date End Date Duration Status Aidapin 1 MG Orally Twice a day 1 tablet 12h 24 Apr, 2015 Active RESULTS No Results PROCEDURES No Known procedures IMMUNIZATIONS No Known Immunizations
--- OUTSIDE RECORDS SUMMARY | 2016-09-20 15:36 | XMS REPORT ---
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
--- OUTSIDE RECORDS SUMMARY | 2016-09-20 15:36 | XMS REPORT ---
Author Author ALIZA CARTER [facility] eClinicalWorks Address Unknown Phone Unavailable Care Team Providers Care Therapeutic Massage Technician Name Role Phone ALIZA CARTER Unavailable Allergies, Adverse Reactions, Alerts Substance Reaction [...] Active Problem Pure hyperglyceridemia 272.1 Active Assessment Yeast vaginitis B37.3 Active Assessment Dry mouth R68.2 Active Assessment Memory loss R41.3 Active Problem Anxiety disorder, unspecified F41.9 Active Assessment Chronic constipation K59.09 Active Assessment Left knee pain M25.562 Active Problem Special screening examination, human papillomavirus [...] Start Date End Date Status Dosage Klonopin [facility] [address]-78 1 MG Orally Twice a day May 02, 2015 1 tablet Nabumetone [facility] [address]-50 500 MG Orally Twice a day May 24, 2015 June 23, 2015 1 tablet Amitriptyline HCl [facility] [address]-62 150 MG Orally Once a day May 02, 2015 1 tablet Ventolin HFA [facility] [address]-89 90 mcg/actuation Dec 09, 2013 inhale 2-4 puff by Inhalation route as needed every 4 hours PRN for cough or wheeze Spiriva HandiHaler [facility] [address]-86 18 MCG Inhalation Once a day 1 capsule Topamax [facility] [address]-32 50 MG Orally 3 times a day (Voucher) May 02, 2015 1 tablet Amitiza [facility] [address]-80 8 MCG Orally Twice a day June 14, 2015 1 capsule with food Diflucan [facility] [address]-42 150 MG Orally Once a day and may repeat in 4 days if infection not better June 14, 2015 1 tablet Seroquel XR [facility] [address]-85 300 MG Orally Once a day Feb 16, 2015 1 tablet in the evening Cymbalta [facility] [address]-02 60 MG Orally PALS Twice a day Feb 16, 2015 1 capsule Advair Diskus [facility] [address]-03 250 mcg-50 mcg Dec 09, 2013 1 puffs by Inhalation route 2 times per day Albuterol Sulfate [facility] [address]-45 (2.5 MG/3ML) 0.083% Inhalation Three times a day 3 ml Procedures Procedure Coding System Code Date Office Visit, Est Pt., Level 3 CPT-4 47179 June 14, 2015 MEASURE BLOOD OXYGEN LEVEL CPT-4 02435 June 14, 2015 Vital Signs Date/Time: June 14, 2015 Temperature 98.0 F Weight 247.4 lbs Height 70 in Oximetry 96 % Blood Pressure Diastolic 90 mmHg Blood Pressure Systolic 120 mmHg Cardiac Monitoring Heart Rate 104 bpm BMI 35.49 Index Results No Known Results Summary Purpose eClinicalWorks Submission
--- OUTSIDE RECORDS SUMMARY | 2016-09-20 15:36 | XMS REPORT ---
Author Author THOMAS WOLF [facility] eClinicalWorks Address Unknown Phone Unavailable Care Team Providers Care Enamel Cracker Name Role Phone THOMAS WOLF CP Unavailable Allergies, Adverse Reactions, Alerts Substance [...] Active Problem Irregular menstrual cycle 626.4 Active Assessment Multiple contusions T14.8 Active Assessment Elbow injury, right, initial encounter S59.901A Active Assessment Cervical strain, acute, initial encounter S16.1XXA Active Problem Abdominal pain, right upper quadrant [...] with female genital organs 625.8 Active Medications Medication Code System Code Instructions Start Date End Date Status Dosage Spiriva HandiHaler [facility] [address]-30 18 MCG Inhalation Once a day 1 capsule Neurontin [facility] [address]-70 300 MG Orally repository Three times a day Dec 10, 2015 1 capsule Nabumetone [facility] [address]-48 750 MG Orally Twice a day September 27, 2015 1 tablet Olanzapine [facility] [address]-51 2.5 MG Orally - voucher Once a day Jan 02, 2016 1 tablet Advair Diskus [facility] [address]-24 250 mcg-50 mcg Dec 09, 2013 1 puffs by Inhalation route 2 times per day Zyprexa [facility] [address]-97 10 MG Orally voucher Once a day Dec 10, 2015 1 tablet Fish Oil [facility] [address] 1200 MG Orally Once a day 1 capsule Cymbalta [facility] [address]-43 60 MG Orally PALS Twice a day Feb 16, 2015 1 capsule Ventolin HFA [facility] [address]-90 90 mcg/actuation Dec 09, 2013 inhale 2-4 puff by Inhalation route as needed every 4 hours PRN for cough or wheeze Albuterol Sulfate [facility] [address]-15 (2.5 MG/3ML) 0.083% Inhalation Three times a day 3 ml One Daily [facility] [address]-62 Orally Once a day 1 tablet Topamax [facility] 83258679900 100 MG Orally Twice a day 1 tablet Amitiza [facility] [address]-70 24 MCG Orally Twice a day June 14, 2015 1 capsule with food Hydrochlorothiazide [facility] [address]-21 50 mg Orally Once a day September 27, 2015 1 tablet Procedures Procedure Coding System Code Date Office Visit, Est Pt., Level 3 CPT-4 66871 Jan 08, 2016 X-RAY EXAM OF ELBOW CPT-4 06897 Jan 08, 2016 Vital Signs Date/Time: Jan 08, 2016 Cardiac Monitoring Heart Rate 100 bpm Weight 247 lbs Height 70 in BMI 35.44 Index Blood Pressure Diastolic 88 mmHg Blood Pressure Systolic 130 mmHg Results No Known Results Summary Purpose eClinicalWorks Submission
--- OUTSIDE RECORDS SUMMARY | 2016-09-20 15:37 | XMS REPORT ---
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 Active Problem Headache 784.0 Active 59137736 Problem Need for prophylactic vaccination and inoculation, Influenza V04.81 Active 969167398 Problem Obstructive chronic bronchitis, with (acute) exacerbation 491.21 Active 443377592 Problem Abdominal pain, epigastric 789.06 Active 57001632 Problem Unspecified vitamin D deficiency 268.9 Active 52622221 Problem Unspecified disorder of kidney and ureter 593.9 Active 467857429 Problem Cervicalgia 723.1 Active 29332025 Problem Pure hyperglyceridemia 272.1 Active 381374287 Problem Acute sinusitis, unspecified 461.9 Active 12116426 Problem Pain in joint, pelvic region and thigh 719.45 Active 176820705 Problem Examination of eyes and vision V72.0 Active 925099917 Problem 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 Active Problem Diabetes mellitus without mention of complication, type II or unspecified type, uncontrolled 250.02 Active 746919378 Problem Irregular menstrual cycle 626.4 Active 68792570 Problem Migraine G43.909 Active 34520330 Problem Tobacco abuse Z72.0 Active 32776120 Problem Thrush B37.0 Active 64880158 Problem Anxiety F41.9 Active 59775434 Problem Major depressive disorder, recurrent, moderate F33.1 Active 37967795 Problem Anxiety disorder, unspecified F41.9 Active 824431905 Assessment Migraine without aura and without status migrainosus, not intractable G43.009 Nov, Active 212177887 Problem Vomiting alone 787.03 Active 455376656 Problem Diarrhea 787.91 Active 08817281 Problem Pain in joint, shoulder region 719.41 Active 457575978 Problem Abdominal pain, right upper quadrant 789.01 Active 539483033 Problem Pain in joint, ankle and foot 719.47 Active 088677431 Problem Pain in joint, lower leg 719.46 Active 572467986 Problem Diabetes mellitus without mention of complication, type II or unspecified type, not stated as uncontrolled 250.00 Active 318418373 Problem Volume depletion, unspecified 276.50 Active 17307956 Problem Intestinal infection due to other organism, NEC 008.8 Active 14439242 Problem Dehydration 276.51 Active 96784376 Problem TMJ (sprain of temporomandibular joint) S03.4XXA Active 70605096 Problem Other specified drug dependence, unspecified abuse 304.60 Active Problem Diabetes E11.9 Active 024034347 Problem Encounter for tobacco use cessation counseling Z71.6 Active 364962157 Problem Acute bronchitis with COPD J44.0 Active 569780575936787 Problem Knee pain, left M25.562 Active 25629482 Problem Bipolar disorder, unspecified F31.9 Active 99866943 Problem Left knee pain M25.562 Active 04736016 Problem Methicillin resistant Staphylococcus aureus 041.12 Active 865874711 Problem Yeast vaginitis B37.3 Active 61435963 Problem Pneumonia due to other Streptococcus 482.39 Active 94466923 Problem Memory loss R41.3 Active 26467830 Problem Unspecified viral infection, in conditions classified elsewhere and of unspecified site 079.99 Active 05959790 Problem Chronic constipation K59.09 Active 139919065 Problem Unspecified hemorrhoids without mention of complication 455.6 Active 16003120 Problem Dry mouth R68.2 Active 22295706 Problem Acute upper respiratory infections of unspecified site 465.9 Active 43698194 Problem Sprain and strain of other specified sites of hip and thigh 843.8 Active 00639073 Problem Dysuria 788.1 Active 45480680 Problem Chest pain, unspecified 786.50 Active 80284323 Problem Nausea with vomiting 787.01 Active 66317970 Problem Unspecified bacterial pneumonia 482.9 Active 90144681 Problem Cough 786.2 Active 01861926 ALLERGIES Substance Reaction Event Type Date Status Buspar 10 Mg Tablet made legs shaky Non Drug Allergy Nov, Active Benzodiazepines NARC ALERT Broke narc contract Non Drug Allergy Nov Active Narcotic NARC ALERT Broke Narc contract Non Drug Allergy Nov, Active SOCIAL HISTORY No smoking Hx information available PLAN OF CARE VITAL SIGNS MEDICATIONS Medication Instructions Dosage Frequency Start Date End Date Duration Status Spiriva HandiHaler 18 MCG Inhalation Once a day 1 capsule 24h Active Cymbalta 60 MG Orally PALS Twice a day 1 capsule 12h Feb, 30 days Active Advair Diskus 250 mcg-50 mcg 1 puffs by Inhalation route 2 times per day Dec, Active Albuterol Sulfate (2.5 MG/3ML) 0.083% Inhalation Three times a day 3 ml 8h Active Hydrochlorothiazide 50 mg Orally Once a day 1 tablet 24h Sep, 30 day(s) Active Ketorolac Tromethamine 60 MG/2ML Injection (IN HOUSE) once monthly 1 ml as needed Nov, Active Contrave 8-90 MG Orally Twice a day 2 tablets 12h Oct, 90 days Active Neurontin 100 MG Orally Three times a day as directed 8h Sep, 30 days Active Amitiza 24 MCG Orally Twice a day 1 capsule with food 12h Jun, 90 days Active Amitriptyline HCl 150 MG Orally Once a day 1 tablet 24h Apr, 30 days Active Topamax 100 MG Orally Twice a day 1 tablet 12h 30 Active Ventolin HFA 90 mcg/actuation inhale 2-4 puff by Inhalation route as needed every 4 hours PRN for cough or wheeze Dec, Active Phenergan 50 MG/ML Injection (IN HOUSE) once monthly 1 ml as needed Nov, Active Klonopin 1 MG Orally Twice a day 1 tablet 12h Apr, Active RESULTS No Results PROCEDURES Procedure Date Ordered Related Diagnosis Body Site TORADOL (IM) 60 MG/2ML (UP TO 15 MG) Nov 29, 2015 THER/PROPH/DIAG INJ, SC/IM Nov 29, 2015 PHENERGAN 50MG/ML Nov 29, 2015 IMMUNIZATIONS Vaccine Route Administration Date Status PHENERGAN 50MG/ML IM Intramuscular Nov 29, 2015 Administered TORADOL (IM) 60 MG/2ML (UP TO 15 MG) IM Intramuscular Nov 29, 2015 Administered
--- OUTSIDE RECORDS SUMMARY | 2016-09-20 15:37 | XMS REPORT ---
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 Active Problem Headache 784.0 Active Problem Need for prophylactic vaccination and inoculation, Influenza V04.81 Active Problem Obstructive chronic bronchitis, with (acute) exacerbation 491.21 Active Problem Abdominal pain, epigastric 789.06 Active Problem Unspecified vitamin D deficiency 268.9 Active Problem Unspecified disorder of kidney and ureter 593.9 Active Problem Cervicalgia 723.1 Active Assessment 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 Active Problem Pure hyperglyceridemia 272.1 Active Problem Acute sinusitis, unspecified 461.9 Active Problem Pain in joint, pelvic region and thigh 719.45 Active Problem Examination of eyes and vision V72.0 Active Problem 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 Active Problem Diabetes mellitus without mention of complication, type II or unspecified type, uncontrolled 250.02 Active Problem Irregular menstrual cycle 626.4 Active Problem Migraine G43.909 Active Problem Tobacco abuse Z72.0 Active Problem Thrush B37.0 Active Problem Anxiety F41.9 Active Problem Major depressive disorder, recurrent, moderate F33.1 Active Problem Anxiety disorder, unspecified F41.9 Active Assessment Major depressive disorder, recurrent, moderate F33.1 Active Assessment Anxiety disorder, unspecified F41.9 Active Problem Vomiting alone 787.03 Active Problem Diarrhea 787.91 Active Problem Pain in joint, shoulder region 719.41 Active Problem Abdominal pain, right upper quadrant 789.01 Active Problem Pain in joint, ankle and foot 719.47 Active Problem Pain in joint, lower leg 719.46 Active Problem Diabetes mellitus without mention of complication, type II or unspecified type, not stated as uncontrolled 250.00 Active Problem Volume depletion, unspecified 276.50 Active Problem Intestinal infection due to other organism, NEC 008.8 Active Problem Dehydration 276.51 Active Problem TMJ (sprain of temporomandibular joint) S03.4XXA Active Problem Other specified drug dependence, unspecified abuse 304.60 Active Problem Diabetes E11.9 Active Problem Encounter for tobacco use cessation counseling Z71.6 Active Problem Acute bronchitis with COPD J44.0 Active Problem Knee pain, left M25.562 Active Problem Bipolar disorder, unspecified F31.9 Active Problem Left knee pain M25.562 Active Problem Bipolar disorder, current episode depressed, severe, without psychotic features F31.4 Active Problem Methicillin resistant Staphylococcus aureus 041.12 Active Problem Yeast vaginitis B37.3 Active Problem Pneumonia due to other Streptococcus 482.39 Active Problem Memory loss R41.3 Active Problem Unspecified viral infection, in conditions classified elsewhere and of unspecified site 079.99 Active Problem Chronic constipation K59.09 Active Problem Unspecified hemorrhoids without mention of complication 455.6 Active Problem Dry mouth R68.2 Active Problem Acute upper respiratory infections of unspecified site 465.9 Active Problem Sprain and strain of other specified sites of hip and thigh 843.8 Active Problem Dysuria 788.1 Active Problem Chest pain, unspecified 786.50 Active Problem Nausea with vomiting 787.01 Active Problem Unspecified bacterial pneumonia 482.9 Active Problem Cough 786.2 Active Medications No Known Medications Procedures Procedure Coding System Code Date Psychotherapy, patient &/family, 45 minutes, established patient CPT-4 30266 Jan 25, 2016 Results No Known Results Summary Purpose eClinicalWorks Submission
--- OUTSIDE RECORDS SUMMARY | 2016-09-20 15:37 | XMS REPORT ---
Author Author ALIZA CARTER 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 Active Problem Headache 784.0 Active 09820607 Problem Need for prophylactic vaccination and inoculation, Influenza V04.81 Active 587215828 Problem Obstructive chronic bronchitis, with (acute) exacerbation 491.21 Active 664594408 Problem Abdominal pain, epigastric 789.06 Active 10506929 Problem Unspecified vitamin D deficiency 268.9 Active 68470084 Problem Unspecified disorder of kidney and ureter 593.9 Active 879138347 Problem Cervicalgia 723.1 Active 18924539 Problem Pure hyperglyceridemia 272.1 Active 885005521 Problem Acute sinusitis, unspecified 461.9 Active 22407476 Problem Pain in joint, pelvic region and thigh 719.45 Active 224034932 Problem Examination of eyes and vision V72.0 Active 096134358 Problem 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 Active Problem Diabetes mellitus without mention of complication, type II or unspecified type, uncontrolled 250.02 Active 010083629 Problem Irregular menstrual cycle 626.4 Active 77891139 Problem Migraine G43.909 Active 03630915 Problem Tobacco abuse Z72.0 Active 46301713 Problem Thrush B37.0 Active 55429112 Problem Anxiety F41.9 Active 18684285 Problem Major depressive disorder, recurrent, moderate F33.1 Active 90042575 Problem Anxiety disorder, unspecified F41.9 Active 837469455 Assessment Migraine G43.909 Nov, Active 54260098 Problem Vomiting alone 787.03 Active 182924750 Problem Diarrhea 787.91 Active 79141756 Problem Pain in joint, shoulder region 719.41 Active 791713834 Problem Abdominal pain, right upper quadrant 789.01 Active 147229439 Problem Pain in joint, ankle and foot 719.47 Active 576175156 Problem Pain in joint, lower leg 719.46 Active 066213769 Problem Diabetes mellitus without mention of complication, type II or unspecified type, not stated as uncontrolled 250.00 Active 118890943 Problem Volume depletion, unspecified 276.50 Active 44851266 Problem Intestinal infection due to other organism, NEC 008.8 Active 48189838 Problem Dehydration 276.51 Active 91090471 Problem TMJ (sprain of temporomandibular joint) S03.4XXA Active 94663999 Problem Other specified drug dependence, unspecified abuse 304.60 Active Problem Diabetes E11.9 Active 940755401 Problem Encounter for tobacco use cessation counseling Z71.6 Active 010282900 Problem Acute bronchitis with COPD J44.0 Active 532279666070632 Problem Knee pain, left M25.562 Active 77086273 Problem Bipolar disorder, unspecified F31.9 Active 58467008 Problem Left knee pain M25.562 Active 03276537 Problem Methicillin resistant Staphylococcus aureus 041.12 Active 832246684 Problem Yeast vaginitis B37.3 Active 33959756 Problem Pneumonia due to other Streptococcus 482.39 Active 01833747 Problem Memory loss R41.3 Active 33441389 Problem Unspecified viral infection, in conditions classified elsewhere and of unspecified site 079.99 Active 28673536 Problem Chronic constipation K59.09 Active 714105705 Problem Unspecified hemorrhoids without mention of complication 455.6 Active 15802335 Problem Dry mouth R68.2 Active 60736133 Problem Acute upper respiratory infections of unspecified site 465.9 Active 42257687 Problem Sprain and strain of other specified sites of hip and thigh 843.8 Active 03732785 Problem Dysuria 788.1 Active 11414885 Problem Chest pain, unspecified 786.50 Active 61671719 Problem Nausea with vomiting 787.01 Active 38767874 Problem Unspecified bacterial pneumonia 482.9 Active 13679646 Problem Cough 786.2 Active 93274743 ALLERGIES Unknown Allergies SOCIAL HISTORY No smoking Hx information available PLAN OF CARE VITAL SIGNS MEDICATIONS Medication Instructions Dosage Frequency Start Date End Date Duration Status Ketorolac Tromethamine 60 MG/2ML Injection (IN HOUSE) once monthly 1 ml as needed Nov, Active Phenergan 50 MG/ML Injection (IN HOUSE) once monthly 1 ml as needed Nov, Active RESULTS No Results PROCEDURES No Known procedures IMMUNIZATIONS No Known Immunizations
--- OUTSIDE RECORDS SUMMARY | 2016-09-20 15:37 | XMS REPORT ---
Author Author ALIZA CARTER [facility] eClinicalWorks Address Unknown Phone Unavailable Care Team Providers Care Napper Grinder Name Role Phone ALIZA CARTER CP Unavailable [...]
--- OUTSIDE RECORDS SUMMARY | 2016-09-20 15:38 | XMS REPORT ---
Author Author ALIZA CARTER [facility] eClinicalWorks Address Unknown Phone Unavailable Care Team Providers Care Director Safety Name Role Phone ALIZA CARTER CP Unavailable [...] Problem Anxiety disorder, unspecified F41.9 Active Assessment Obesity, unspecified obesity severity, unspecified obesity type E66.9 Active Assessment Chronic constipation K59.09 Active Problem Special screening examination, human papillomavirus [...] Instructions Start Date End Date Status Dosage Contrave [facility] [address]-85 8-90 MG Orally Twice a day Nov 06, 2015 2 tablets Amitiza [facility] [address]-70 24 MCG Orally Twice a day June 14, 2015 1 capsule with food Results No Known Results Summary Purpose eClinicalWorks Submission
--- OUTSIDE RECORDS SUMMARY | 2016-09-20 15:38 | XMS REPORT ---
Author Author [facility] Medical Staff Organization [facility] Address [address] [place], [place] [address] Phone [phone] Care Team Providers Care Blending Kettle Tender Name Role Phone ORTIZ TYSON MD PP [phone] ORTIZ TYSON MD, PP [phone] Summary purpose CCDA Sent to [facility] Chief Complaint and Reason for Visit Admit Diagnosis 1 MIGRAINE Problem list No authorized problems tracked for continuity of care are available for this visit. Encounters No authorized problems tracked for encounter diagnoses are available for this visit. Medications Discharge Medications Status Medication Directions Current amitriptyline 150 mg tablet 150 microgram(s) oral BEDTIME Current Duloxetine (Cymbalta) 120 miligram(s) oral ONE TIME A DAY Current Multivitamin, Adult(MVI Adult) 1 Tablet oral oral ONE TIME A DAY Current Neurontin 100 mg capsule 100 miligram(s) oral THREE TIMES A DAY Current Topiramate (Topamax) 200 miligram(s) oral ONE TIME A DAY Current Zyprexa 15 mg tablet 15 miligram(s) oral oral NEEDED for unknown Current Zyprexa 5 mg tablet 5 miligram(s) oral oral NEEDED for unknown Allergies, adverse reactions, alerts Allergen Category Ingredient Status Reaction Severity Onset No Known Drug Allergy No known drug allergies No Known Drug Allergy Active Immunizations No immunizations recorded for this patient visit Relevant diagnostic tests and/or laboratory data No authorized results are available for this patient visit History of procedures Procedure Code Code Type Description Date Performed Performing Physician J2550 CPT-4 PROMETHAZINE HCL INJECTION 02-29-2016 SCOUT ALBARRAN J2175 CPT-4 MEPERIDINE HYDROCHL /100 MG 02-29-2016 SCOUT ALBARRAN 90256 CPT-4 EMERGENCY DEPT VISIT 02-29-2016 SCOUT ALBARRAN 06986 CPT-4 THER/PROPH/DIAG INJ, SC/IM 02-29-2016 SCOUT ALBARRAN 77089 CPT-4 THER/PROPH/DIAG INJ, IV PUSH 02-29-2016 SCOUT ALBARRAN Functional status Cognitive Status Finding Observation Time Level of Consciousne Alert :25 Oriented to Person Yes [id number]:[address] Yes :25 Oriented to Time Yes [id number]:25 Eyes - ROSITA Yes :25 Right Pupil Reaction Brisk Constriction :25 Pupil Gauge - Right 3 mm :25 Left Pupil Reaction Brisk Constriction :25 Pupil Gauge - Left E 3 mm :25 Vital signs Type Value Date Respirations 18 :50 Pulse 86 :50 O2 Saturation 100% :50 Systolic Blood Press 131mm/HG 49-43-579742:50 Diastolic Blood Pres 91mm/HG :50 Temperature (Fahr) 97.6Degrees :50 Social history Type Value Smoking Status CURRENT EVERY DAY SMOKER Treatment Plan No treatment plan text is available for this visit. Hospital discharge instructions Diagnosis Migraine Headache Diet Increase fluid intake Activity Level as tolerated Med Dispensed by Pro You were given Demerol and Phenergan in the ER. Go home and rest and drink plenty of fluids. Follow up with Family doctor Appointment Date and next week
--- OUTSIDE RECORDS SUMMARY | 2016-09-20 15:38 | XMS REPORT ---
Author Author DAVID CORNEJO [facility] eClinicalWorks Address Unknown Phone Unavailable Care Team Providers Care Site Administrator Name Role Phone DAVID CORNEJO Unavailable Allergies [...]
--- OUTSIDE RECORDS SUMMARY | 2016-09-20 15:38 | XMS REPORT ---
Author Author [facility] Medical Staff Organization [facility] Address [address] [place], [place] [address] Phone [phone] Summary purpose CCDA Sent to [facility] Chief Complaint and Reason for Visit [...] Code Type Description Date Performed Performing Physician 86756 CPT-4 EMERGENCY DEPT VISIT 02-29-2016 SCOUT ALBARRAN Functional status No functional or cognitive status [...]
--- OUTSIDE RECORDS SUMMARY | 2016-09-20 15:38 | XMS REPORT ---
Author Author DAVID CORNEJO [facility] eClinicalWorks Address Unknown Phone Unavailable Care Team Providers Care Manager Actuarial Name Role Phone DAVID CORNEJO Unavailable Allergies [...] Instructions Start Date End Date Status Dosage Trazodone HCl [facility] [address]-01 100 MG Orally voucher or PALS Once a day Dec 20, 2014 1 tablet at bedtime Seroquel XR [facility] [address]-22 50 MG Orally PALS twice a day Dec 20, [address] [facility] [address]-73 60 MG Orally PALS Once a day Dec 20, 2014 1 capsule HydrOXYzine Pamoate [facility] [address]-21 25 MG Orally voucher every 6 hrs Dec 20, 2014 1 capsule as needed Results No Known Results Summary Purpose eClinicalWorks Submission
--- OUTSIDE RECORDS SUMMARY | 2016-09-20 15:38 | XMS REPORT ---
Author Author ALIZA CARTER [facility] eClinicalWorks Address Unknown Phone Unavailable Care Team Providers Care Internet Assessor Name Role Phone ALIZA CARTER Unavailable Allergies, [...] Active Problem Pure hyperglyceridemia 272.1 Active Assessment Obesity, unspecified obesity severity, unspecified obesity type E66.9 Active Assessment Varicose vein of leg I83.90 Active Problem Anxiety disorder, unspecified F41.9 Active Assessment Edema, unspecified type R60.9 Active Assessment Diabetes E11.9 Active Problem Special screening examination, human papillomavirus [...] Instructions Start Date End Date Status Dosage Amitriptyline HCl [facility] [address]-85 150 MG Orally Once a day May 02, 2015 1 tablet Neurontin [facility] [address]-98 100 MG Orally Three times a day September 12, 2015 as directed Nabumetone [facility] [address]-19 750 MG Orally Twice a day September 27, 2015 Oct 27, 2015 1 tablet Ventolin HFA [facility] [address]-19 90 mcg/actuation Dec 09, 2013 inhale 2-4 puff by Inhalation route as needed every 4 hours PRN for cough or wheeze Spiriva HandiHaler [facility] [address]-92 18 MCG Inhalation Once a day 1 capsule Albuterol Sulfate [facility] [address]-40 (2.5 MG/3ML) 0.083% Inhalation Three times a day 3 ml Klonopin [facility] [address]-75 1 MG Orally Twice a day May 02, 2015 1 tablet Topamax [facility] 27625169246 100 MG Orally Twice a day 1 tablet Hydrochlorothiazide [facility] [address]-39 50 mg Orally Once a day September 27, 2015 1 tablet Advair Diskus [facility] [address]-65 250 mcg-50 mcg Dec 09, 2013 1 puffs by Inhalation route 2 times per day Cymbalta [facility] [address]-34 60 MG Orally PALS Twice a day Feb 16, 2015 1 capsule Procedures Procedure Coding System Code Date ASSAY OF INSULIN CPT-4 82503 October 01, 2015 LIPID PANEL CPT-4 43138 October 01, 2015 GLYCATED HEMOGLOBIN TEST CPT-4 35819 October 01, 2015 VENIPUNCT, ROUTINE* CPT-4 35099 October 01, 2015 Office Visit, Est Pt., Level 3 CPT-4 58538 October 01, 2015 Vital Signs Date/Time: October 01, 2015 Cardiac Monitoring Heart Rate 88 bpm Weight 248.1 lbs Height 70 in BMI 35.59 Index Blood Pressure Diastolic 83 mmHg Blood Pressure Systolic 132 mmHg Results No Known Results Summary Purpose eClinicalWorks Submission
--- OUTSIDE RECORDS SUMMARY | 2016-09-20 15:39 | XMS REPORT ---
Author Author ALICIA VALENCIA [facility] eClinicalWorks Address Unknown Phone Unavailable Care Team Providers Care Information Manager Name Role Phone ALICIA VALENCIA CP Unavailable Allergies, Adverse Reactions, Alerts Substance [...] 593.9 Active Problem Cervicalgia 723.1 Active Problem Pure hyperglyceridemia 272.1 Active Problem [...] Problem Anxiety disorder, unspecified F41.9 Active Assessment Pneumonia of both lungs due to methicillin resistant Staphylococcus aureus (MRSA), unspecified part of lung J15.212 Active Assessment Benzodiazepine overdose, accidental or unintentional, subsequent encounter T42.4X1D Active Problem Vomiting alone 787.03 Active Problem [...] 482.9 Active Problem Cough 786.2 Active Medications Medication Code System Code Instructions Start Date End Date Status Dosage Spiriva HandiHaler [facility] [address]-33 18 MCG Inhalation Once a day 1 capsule Advair Diskus [facility] [address]-47 250 mcg-50 mcg Dec 09, 2013 1 puffs by Inhalation route 2 times per day Albuterol Sulfate [facility] [address]-85 (2.5 MG/3ML) 0.083% Inhalation Three times a day 3 ml Amitiza [facility] [address]-00 24 MCG Orally Twice a day June 14, 2015 1 capsule with food Hydrochlorothiazide [facility] [address]-29 50 mg Orally Once a day September 27, 2015 1 tablet Ventolin HFA [facility] [address]-88 90 mcg/actuation Dec 09, 2013 inhale 2-4 puff by Inhalation route as needed every 4 hours PRN for cough or wheeze Cymbalta [facility] [address]-55 60 MG Orally PALS Twice a day Feb 16, 2015 1 capsule Fish Oil [facility] 37369-10856 1200 MG Orally Once a day 1 capsule One Daily [facility] [address]-92 Orally Once a day 1 tablet Zyvox [facility] [address]-52 600 MG Orally every 12 hrs Dec 21, 2015 Jan 04, 2016 1 tablet Nabumetone [facility] [address]-32 750 MG Orally Twice a day September 27, 2015 1 tablet Neurontin [facility] [address]-92 300 MG Orally repository Three times a day Dec 10, 2015 1 capsule Topamax [facility] 84321990212 100 MG Orally Twice a day 1 tablet Zyprexa [facility] [address]-20 10 MG Orally voucher Once a day Dec 10, 2015 1 tablet Procedures Procedure Coding System Code Date Office Visit, Est Pt., Level 4 CPT-4 15849 Dec 25, 2015 Vital Signs Date/Time: Dec 25, 2015 Cardiac Monitoring Heart Rate 100 bpm Weight 244.1 lbs Height 70 in BMI 35.02 Index Blood Pressure Diastolic 82 mmHg Blood Pressure Systolic 114 mmHg Results No Known Results Summary Purpose eClinicalWorks Submission
--- OUTSIDE RECORDS SUMMARY | 2016-09-20 15:39 | XMS REPORT ---
Author Author ALIZA CARTER [facility] eClinicalWorks Address Unknown Phone Unavailable Care Team Providers Care Plasma Center Technician Name Role Phone ALIZA CARTER CP Unavailable [...]
--- OUTSIDE RECORDS SUMMARY | 2016-09-20 15:39 | XMS REPORT ---
Author Author DAVID CORNEJO [facility] eClinicalWorks Address Unknown Phone Unavailable Care Team Providers Care Rouge Mixer Name Role Phone DAVID CORNEJO Unavailable Allergies [...] Problem Anxiety disorder, unspecified F41.9 Active Problem Vomiting [...] Start Date End Date Status Dosage Klonopin [facility] [address]-63 1 MG Orally Twice a day May 02, 2015 1 tablet Results No Known Results Summary Purpose eClinicalWorks Submission
--- OUTSIDE RECORDS SUMMARY | 2016-09-20 15:39 | XMS REPORT ---
Author Author ALIZA CARTER [facility] eClinicalWorks Address Unknown Phone Unavailable Care Team Providers Care Financial Compliance Officer Name Role Phone ALIZA CARTER CP Unavailable Allergies No Known Allergies Problems Problem Type Condition Code Onset Dates Condition Status Problem Unspecified hemorrhoids without mention of complication 455.6 Active Problem Acute upper respiratory infections of unspecified site 465.9 Active Problem Pneumonia due to other Streptococcus 482.39 Active Problem Unspecified viral infection, in conditions classified elsewhere and of unspecified site 079.99 Active Problem Methicillin resistant Staphylococcus aureus 041.12 Active Problem Anxiety disorder, unspecified F41.9 Active Problem Unspecified bacterial pneumonia 482.9 Active Problem Major depressive disorder, recurrent, moderate F33.1 Active Problem Cough 786.2 Active Problem Chest pain, unspecified 786.50 Active Problem Nausea with vomiting 787.01 Active Problem Pain in joint, pelvic region and thigh 719.45 Active Problem Sprain and strain of other specified sites of hip and thigh 843.8 Active Problem Acute sinusitis, unspecified 461.9 Active Problem Dysuria 788.1 Active Problem Pure hyperglyceridemia 272.1 Active Problem Irregular menstrual cycle 626.4 Active Problem Diabetes mellitus without mention of complication, type II or unspecified type, uncontrolled 250.02 Active Problem 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 Active Problem Unspecified peripheral vertigo 386.10 Active Problem Other, mixed, or unspecified nondependent drug abuse, 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 Active Problem Enthesopathy of hip region 726.5 Active Problem Diarrhea 787.91 Active Problem Thrush B37.0 Active Problem Other specified symptom associated with female genital organs 625.8 Active Problem Pain in joint, ankle and foot 719.47 Active Problem Unspecified breast screening V76.10 Active Problem Pain in joint, lower leg 719.46 Active Problem Special screening examination, human papillomavirus [HPV] V73.81 Active Problem Pain in joint, shoulder region 719.41 Active Problem Abdominal pain, unspecified site 789.00 Active Problem Abdominal pain, right upper quadrant 789.01 Active Problem Screening for malignant neoplasm of the cervix V76.2 Active Problem Intestinal infection due to other organism, NEC 008.8 Active Problem Need for prophylactic vaccination and inoculation, Influenza V04.81 Active Problem Dehydration 276.51 Active Problem Obstructive chronic bronchitis, with (acute) exacerbation 491.21 Active Problem Diabetes mellitus without mention of complication, type II or unspecified type, not stated as uncontrolled 250.00 Active Problem Urinary tract infection, site not specified 599.0 Active Problem Volume depletion, unspecified 276.50 Active Problem Headache 784.0 Active Problem Vomiting alone 787.03 Active Problem Unspecified disorder of kidney and ureter 593.9 Active Problem Other specified drug dependence, unspecified abuse 304.60 Active Problem Cervicalgia 723.1 Active Problem Abdominal pain, epigastric 789.06 Active Problem Unspecified vitamin D deficiency 268.9 Active Medications Medication Code System Code Instructions Start Date End Date Status Dosage Nystatin [facility] [address]-90 [id number] UNIT/ML Mouth/Throat Swish and Swallow 4 times a day Apr 13, 2015 as directed Results No Known Results Summary Purpose eClinicalWorks Submission
--- OUTSIDE RECORDS SUMMARY | 2016-09-20 15:40 | XMS REPORT ---
Author Author ALICIA VALENCIA [facility] eClinicalWorks Address Unknown Phone Unavailable Care Team Providers Care Environmental Engineering Technician Name Role Phone ALICIA VALENCIA Unavailable Allergies [...] Start Date End Date Status Dosage Hydrochlorothiazide [facility] [address]-92 50 mg Orally Once a day September 27, 2015 1 tablet Advair Diskus [facility] [address]-45 250 mcg-50 mcg Dec 09, 2013 1 puffs by Inhalation route 2 times per day Albuterol Sulfate [facility] [address]-05 (2.5 MG/3ML) 0.083% Inhalation Three times a day 3 ml Neurontin [facility] [address]-97 300 MG Orally repository Three times a day Dec 10, 2015 1 capsule Cymbalta [facility] [address]-90 60 MG Orally PALS Twice a day Feb 16, 2015 1 capsule Nabumetone [facility] [address]-00 750 MG Orally Twice a day September 27, 2015 1 tablet Zyprexa [facility] [address]-02 10 MG Orally voucher Once a day Dec 10, 2015 1 tablet Amitiza [facility] [address]-21 24 MCG Orally Twice a day June 14, 2015 1 capsule with food Clonazepam [facility] [address]-11 0.5 MG Orally Twice a day 1 tablet Zyvox [facility] [address]-76 600 MG Orally every 12 hrs Dec 21, 2015 Jan 04, 2016 1 tablet Topamax [facility] 18235727972 100 MG Orally Twice a day 1 tablet Ventolin HFA [facility] [address]-04 90 mcg/actuation Dec 09, 2013 inhale 2-4 puff by Inhalation route as needed every 4 hours PRN for cough or wheeze Spiriva HandiHaler [facility] [address]-08 18 MCG Inhalation Once a day 1 capsule Results No Known Results Summary Purpose eClinicalWorks Submission
--- OUTSIDE RECORDS SUMMARY | 2016-09-20 15:40 | XMS REPORT ---
Author Author DAVID CORNEJO [facility] eClinicalWorks Address Unknown Phone Unavailable Care Team Providers Care Mold Making Plastics Sheets Supervisor Name Role Phone DAVID CORNEJO Unavailable Allergies [...] Instructions Start Date End Date Status Dosage Seroquel XR [facility] [address]-06 300 MG Orally Once a day Feb 16, 2015 1 tablet in the evening Cymbalta [facility] [address]-89 60 MG Orally PALS Twice a day Feb 16, 2015 1 capsule Results No Known Results Summary Purpose eClinicalWorks Submission
--- OUTSIDE RECORDS SUMMARY | 2016-09-20 15:40 | XMS REPORT ---
Author Author DAVID CORNEJO [facility] eClinicalWorks Address Unknown Phone Unavailable Care Team Providers Care Nurse Practitioner Manager Name Role Phone DAVID CORNEJO Unavailable Allergies [...] Start Date End Date Status Dosage Klonopin [facility] [address]-97 1 MG Orally Twice a day May 02, 2015 1 tablet Results No Known Results Summary Purpose eClinicalWorks Submission
--- NOTE | 2016-09-20 15:41 | ED Respiratory ---
General Chief Complaint: Respiratory Problems Stated Complaint: SOA History of Present Illness Time seen by provider: 15:30 Initial Comments Evaluation for exacerbation of COPD, asthma and SOA, she was seen at [facility] where she was given 2 doses of DuoNeb and IV Medrol 125 mg IM with no improvement in her symptoms. They report her SaO2 is on room air to be 89%. [facility] SPECIALIST talked with Dr. Larois and recommended evaluation in the ER. The patient states she has been progressively getting worse over the last 3-4 days, she's had more stress and anxiety related to the of a nephew in the last week. She has had no medication changes and has not taken any medications not prescribed to her. Timing/Duration: this morning Prior Episodes/Possible Cause: frequent episodes Modifying Factors: Improves With Albuterol Nebulizer, Improves With Rest Associated Symptoms: cough, lightheadedness, shortness of breath, wheezing Allergies and Home Medications Allergies Coded Allergies: buspirone (Verified Allergy, Mild, 05/09/13) Made"legs Shaky" amlodipine (Verified Allergy, Unknown, 05/09/13) Anasarca Home Medications Albuterol Sulfate 18 Gm Hfa.aer.ad, 2 PUFF IH Q4H PRN for SHORTNESS OF BREATH, ( Reported) Albuterol Sulfate 2.5 Mg/3 Ml Vial.neb, 2.5 MG IH TID, (Reported) Amitriptyline HCl 150 Mg Tablet, 150 MG PO HS, (Reported) Clonazepam 0.5 Mg Tab.rapdis, 0.5 MG PO BID, #0 TAPER DOSE TO 0.5MG (OR 1/2 OF THE 1MG TAB) TWICE DAILY Prescribed by: CONNOR JOHNSTON on 12/21/15 112 Duloxetine HCl 60 Mg Capsule.dr, 60 MG PO BID, (Reported) Fluticasone/Salmeterol 1 Each Blst.w.dev, 1 PUFF IH BID, (Reported) Gabapentin 300 Mg Capsule, 300 MG PO TID, (Reported) Hydrochlorothiazide 50 Mg Tablet, 50 MG PO DAILY, (Reported) Linezolid 600 Mg Tablet, 600 MG PO BID, #28 Ref 0 Prescribed by: CONNOR JOHNSTON on 12/21/15 112 Lubiprostone 24 Mcg Capsule, 24 MCG PO BID, (Reported) Nabumetone 750 Mg Tablet, 750 MG PO BID, (Reported) Olanzapine 10 Mg Tablet, 10 MG PO DAILY, (Reported) Tiotropium [place] 1 Inh Aerp, 1 CAP IH DAILY, (Reported) Topiramate 100 Mg Tablet, 100 MG PO BID, (Reported) Constitutional: no symptoms reported, see HPI Respiratory: see HPI, cough, dyspnea on exertion, short of breath, wheezing Cardiovascular: no symptoms reported, see HPI All Other Systems Reviewed Negative Unless Noted: Yes Past Hrddizn-Slduzf-Urqncl Hx Patient Social History Type Used: Cigarettes Recent Foreign Travel: No Contact w/Someone Who Travel: No Recent Hopitalizations: Yes (WHEN GIVING , COPD) Immunizations Up To Date Tetanus Booster (TDap): More than 5yrs Date of Pneumonia Vaccine: Dec 08, 2011 Date of Influenza Vaccine: Apr 09, 2012 Seasonal Allergies Seasonal Allergies: No Surgeries HX Surgeries: No Respiratory Hx Respiratory Disorders: Yes (persistent tobacco use) Respiratory Disorders: Asthma, COPD Cardiovascular Hx Cardiac Disorders: Yes Cardiac Disorders: Hypertension Neurological Hx Neurological Disorders: Yes Neurological Disorders: Headaches /Migraines 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 System Hx 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 Disorders: No Sexually Transmitted Disease: No HIV/AIDS: No 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 Disorders: Denies CERAMIC SAW TENDER History: Menopausal Genitourinary Hx Genitourinary Disorders: No Gastrointestinal Hx Gastrointestinal Disorders: No Gastrointestinal Disorders: Chronic Constipation, Chronic Diarrhea Musculoskeletal Hx Musculoskeletal Disorders: Yes (chronic shoulder and neck pain) Endocrine Hx Endocrine Disorders: Yes (DM TYPE II) Endocrine Disorders: Diabetes, Non-Insulin dep HEENT HX ENT Disorders: No Cancer Hx Cancer: No Psychosocial Hx Psychiatric Problems: Yes Behavioral Health Disorders: Anxiety, Depression Integumentary HX Skin/Integumentary Disorder: No Blood Transfusions Hx Blood Disorders: No Adverse Reaction to a Blood Tr: No Reviewed Nursing Assessment Reviewed/Agree w Nursing PMH: Yes Family Medical History Significant Family History: No Pertinent Family Hx Family Medial History: Cancer 03 MOTHER, Onset:66 (LUNG ) 09 BROTHER (LUNG ) Congestive heart failure 03 FATHER Physical Exam Vital Signs Vital Sign - Last 12Hours 09/20/16 09/20/16 09/20/16 15:29 15:45 15:47 Temp 98.9 Pulse 114 Resp 20 B/P (MAP) 132/99 Pulse Ox 94 O2 Delivery Room Air O2 Flow Rate 1.00 FiO2 94 Capillary Refill : General Appearance: WD/WN, mild distress Eyes: Bilateral Eye EOMI, Bilateral Eye Normal Inspection, Bilateral Eye PERRL HEENT: PERRL/EOMI, normal ENT inspection, TMs normal, pharynx normal Neck: non-tender, full range of motion, supple, normal inspection Respiratory: chest non-tender, no accessory muscle use, decreased breath sounds , wheezing (inspiratory and expiratory) Cardiovascular: normal peripheral pulses, regular rate, rhythm, no edema, no murmur Gastrointestinal: normal bowel sounds, non tender, soft Neurologic/Psychiatric: no motor/sensory deficits, alert, normal mood/affect, oriented x 3 Skin: normal color, warm/dry Lymphatic: no adenopathy Progress/Results/Core Measures Results/Orders Lab Results Laboratory Tests Test 09/20/16 16:14 09/20/16 16:23 09/20/16 16:25 Range/Units Urine Color YELLOW Urine Clarity CLEAR Urine pH 7 5-9 Urine Specific [place] 1.010 L 1.016-1.022 Urine Protein NEGATIVE NEGATIVE Urine Glucose (UA) NEGATIVE NEGATIVE Urine Ketones NEGATIVE NEGATIVE Urine Nitrite NEGATIVE NEGATIVE Urine Bilirubin NEGATIVE NEGATIVE Urine Urobilinogen NORMAL NORMAL MG/DL Urine Leukocyte Esterase NEGATIVE NEGATIVE Urine RBC (Auto) NEGATIVE NEGATIVE Urine RBC NONE /HPF Urine WBC RARE /HPF Urine Squamous Epithelial Cells 2-5 /HPF Urine Crystals NONE /LPF Urine Bacteria NEGATIVE /HPF Urine Casts NONE /LPF Urine Mucus NEGATIVE /LPF Urine Culture Indicated NO White Blood Count 13.9 H 4.3-11.0 10^3/uL Red Blood Count 4.72 4.35-5.85 10^6/uL Hemoglobin 14.3 11.5-16.0 G/DL Hematocrit 44 35-52 % Mean Corpuscular Volume 93 80-99 FL Mean Corpuscular Hemoglobin 30 25-34 PG Mean Corpuscular Hemoglobin Concent 32 32-36 G/DL Red Cell Distribution Width 14.5 10.0-14.5 % Platelet Count 300 130-400 10^3/uL Mean Platelet Volume 9.6 7.4-10.4 FL Neutrophils (%) (Auto) 82 H 42-75 % Lymphocytes (%) (Auto) 11 L 12-44 % Monocytes (%) (Auto) 5 0-12 % Eosinophils (%) (Auto) 2 0-10 % Basophils (%) (Auto) 0 0-10 % Neutrophils # (Auto) 11.3 H 1.8-7.8 X 10^3 Lymphocytes # (Auto) 1.5 1.0-4.0 X 10^3 Monocytes # (Auto) 0.7 0.0-1.0 X 10^3 Eosinophils # (Auto) 0.3 0.0-0.3 10^3/uL Basophils # (Auto) 0.0 0.0-0.1 10^3/uL Sodium Level 141 135-145 MMOL/L Potassium Level 3.4 L 3.6-5.0 MMOL/L Chloride Level 106 98-107 MMOL/L Carbon Dioxide Level 24 21-32 MMOL/L Anion Gap 11 5-14 MMOL/L Blood Urea Nitrogen 6 L 7-18 MG/DL Creatinine 0.85 0.60-1.30 MG/DL Estimat Glomerular Filtration Rate > 60 BUN/Creatinine Ratio 7 Glucose Level 139 H 70-105 MG/DL Calcium Level 8.9 8.5-10.1 MG/DL Total Bilirubin 0.4 0.1-1.0 MG/DL Aspartate Amino Transf (AST/SGOT) 19 5-34 U/L Alanine Aminotransferase (ALT/SGPT) 33 0-55 U/L Alkaline Phosphatase 104 40-136 U/L Total Protein 7.0 6.4-8.2 GM/DL Albumin 3.8 3.2-4.5 GM/DL Erythrocyte Sedimentation Rate 19 0-30 MM/HR C-Reactive Protein High Sensitivity 3.69 H 0.00-0.50 MG/DL My Orders Orders - YINA MARTIN Cbc With Automated Diff (09/20/16 15:25) Comprehensive Metabolic Panel (09/20/16 15:25) Ua Culture If Indicated (09/20/16 15:25) Chest Pa/Lat (2 View) (09/20/16 15:25) Albuterol/Ipra Inhalation Soln (Duoneb I (09/20/16 15:29) Albuterol/Ipra Inhalation Soln (Duoneb I (09/20/16 15:45) Svn Sm Volume Nebulizer Rt-Rfs (09/20/16 15:41) Rt Request For Service (09/20/16 15:41) Dexamethasone Pf Injection (Decadron Pf (09/20/16 15:45) Alprazolam Tablet (Xanax Tablet) (09/20/16 16:15) Hs C Reactive Protein (09/20/16 16:27) Erythrocyte Sedimentation Rate (09/20/16 16:27) Acetaminophen Tablet/Caplet (Tylenol T (09/20/16 17:11) Medications Given in ED Current Medications Medications Dose Ordered Sig/Vladimir Route Start Time Stop Time Status Last Admin Dose Admin Albuterol/ Ipratropium 3 ml STK-MED ONCE .ROUTE 09/20/16 15:29 09/20/16 15:35 DC 09/20/16 15:47 3 ML Alprazolam 0.5 mg ONCE ONCE PO 09/20/16 16:15 09/20/16 16:16 DC 09/20/16 16:30 0.5 MG Dexamethasone Sodium Phosphate 10 mg STK-MED ONCE .ROUTE 09/20/16 15:45 09/20/16 15:51 DC 09/20/16 15:51 30 MG Vital Signs/I&O Vital Sign - Last 12Hours 09/20/16 09/20/16 09/20/16 09/20/16 15:29 15:45 15:47 15:53 Temp 98.9 Pulse 114 Resp 20 B/P (MAP) 132/99 Pulse Ox 94 93 94 94 O2 Delivery Room Air Nasal Cannula Nasal Cannula Nasal Cannula O2 Flow Rate 1.00 2.00 1.00 FiO2 94 09/20/16 16:12 Pulse Ox 97 O2 Delivery Nasal Cannula O2 Flow Rate 1.50 FiO2 97 Progress Note : Time: 15:30 Progress Note Initial evaluation obtained, chest x-ray, nebulized Decadron 30 mg, CBC, CMP and UA. Oxygen 1 L per nasal cannula, SaO2 improved to 95%. 1610 patient reports slight improvement since the DuoNeb and Decadron nebulized treatment. She is continuing to state she has SOA, improved air movement with wheezing on auscultation of lungs. Patient does report increased anxiety, will use Xanax 0.5 mg 1 by mouth 1700 patient reports trace improvement in her SOA. Continuing to require 1-1/2 L of oxygen per nasal cannula or SaO2 94-95%. 1715 discussed patient assessment, treatments, laboratory findings and x-rays with Dr. Larios. [place] patient would be best served for observation inpatient. Discussed this with the patient she agreed with this treatment plan as well. Admission orders written. Diagnostic Imaging Diagonstic Imaging: Xray Plain Films/CT/US/NM/MRI: chest Comments NAME: SCOUT [facility] REC#: [id number] PT STATUS: REG ER : 1965 PHYSICIAN: YINA MARTIN ADMIT DATE: 09/20/16/ER Draft Date of Exam:09/20/16 CHEST PA/LAT (2 VIEW) INDICATION: Wheezing, difficulty breathing. TECHNIQUE: Two view chest 3:54 PM CORRELATION STUDY: 09/08/2016 FINDINGS: Heart size is enlarged, but stable. Vasculature is unchanged. Areas of atelectasis or infiltrate in the lung bases slightly progressed. Upper lung shay remain relatively clear. Visualized osseous structures are unremarkable. IMPRESSION: 1. Areas of atelectasis or infiltrate lung bases appearing slightly increased. Dictated on workstation # [id number] Dict: 09/20/16 1540 Trans: 09/20/16 1543 [id number] Interpreted by: RAMON GREEN DO Electronically signed by: Reviewed: Reviewed by Me Departure Impression Impression: Primary Impression: COPD exacerbation Additional Impression: Asthma exacerbation Disposition: ADMITTED INPATIENT Condition: Stable Decision to Admit Reason: Admit from ER (General) Decision to Admit/Date: Sep 20, 2016 Time/Decision to Admit Time: 17:15 Departure-Patient Inst. Referrals: CONNOR JOHNSTON DO (PCP) Primary Care Physician ALIZA CARTER (Family) Primary Care Physician Patient Instructions: Asthma, Adult (DC) Copy Copies To 1: TIMOTHY LARIOS MD, AMY ARNP Sep 20, 2016 15:41
--- NOTE | 2016-09-20 15:44 | Diagnostic Imaging Report ---
INDICATION: Wheezing, difficulty breathing. TECHNIQUE: Two view chest 3:54 PM CORRELATION STUDY: 09/08/2016 FINDINGS: Heart size is enlarged, but stable. Vasculature is unchanged. Areas of atelectasis or infiltrate in the lung bases slightly progressed. Upper lung shay remain relatively clear. Visualized osseous structures are unremarkable. IMPRESSION: 1. Areas of atelectasis or infiltrate lung bases appearing slightly increased. Dictated by: Dictated on workstation # [id number]
[2016-09-20] MEDS ORDERED: DEXAMETHASONE PF 10 MG/ML (DECADRON) VIAL ONE (15:45)
[2016-09-20] MEDS ORDERED: RT-ALBUTEROL/IPRATROPIUM 3 ML (DUONEB) VIAL INH ONE (15:45)
[2016-09-20] MEDS ORDERED: ALPRAZolam 0.25 MG (XANAX) TAB PO ONE (16:15)
[2016-09-20 16:21] LABS: BILIRUBIN,URINE NEGATIVE (NEGATIVE); KETONES,URINE NEGATIVE (NEGATIVE); LEUKOCYTE ESTERASE ,URINE NEGATIVE (NEGATIVE); NITRITE,URINE NEGATIVE (NEGATIVE); PH,URINE 7 (5-9); PROTEIN,URINE NEGATIVE (NEGATIVE); UROBILINOGEN,URINE NORMAL (NORMAL)
[2016-09-20 16:28] LABS: WBC,URINE RARE /HPF
[2016-09-20 16:32] LABS: BASOPHILS % (AUTO) 0 % (0-10); EOSINOPHILS # (AUTO) 0.3 10^3/uL (0.0-0.3); EOSINOPHILS % (AUTO) 2 % (0-10); LYMPHOCYTES # (AUTO) 1.5 X 10^3 (1.0-4.0); LYMPHOCYTES % (AUTO) 11 % (12-44); MEAN CORPUSCULAR HEMOGLOBIN 30 PG (25-34); MEAN CORPUSCULAR HGB CONC 32 G/DL (32-36); MEAN CORPUSCULAR VOLUME 93 FL (80-99); MEAN PLATELET VOLUME 9.6 FL (7.4-10.4); MONOCYTES # (AUTO) 0.7 X 10^3 (0.0-1.0); MONOCYTES % (AUTO) 5 % (0-12); NEUTROPHILS # (AUTO) 11.3 X 10^3 (1.8-7.8); NEUTROPHILS % (AUTO) 82 % (42-75); PLATELET COUNT 300 10^3/uL (130-400); RED BLOOD COUNT 4.72 10^6/uL (4.35-5.85); RED CELL DISTRIBUTION WIDTH 14.5 % (10.0-14.5); WHITE BLOOD COUNT 13.9 10^3/uL (4.3-11.0)
[2016-09-20 16:53] LABS: ALANINE AMINOTRANSFERASE 33 U/L (0-55); ALBUMIN 3.8 GM/DL (3.2-4.5); ANION GAP 11 MMOL/L (5-14); ASPARTATE AMINO TRANSFERASE 19 U/L (5-34); BILIRUBIN,TOTAL 0.4 MG/DL (0.1-1.0); BLOOD UREA NITROGEN 6 MG/DL (7-18); BUN/CREATININE RATIO 7; CALCIUM 8.9 MG/DL (8.5-10.1); CARBON DIOXIDE 24 MMOL/L (21-32); CHLORIDE 106 MMOL/L (98-107); CREATININE SERUM 0.85 MG/DL (0.60-1.30); GFR ESTIMATED > 60; GLUCOSE 139 MG/DL (70-105); POTASSIUM 3.4 MMOL/L (3.6-5.0); SODIUM 141 MMOL/L (135-145)
[2016-09-20] MEDS ORDERED: ACETAMINOPHEN 325 MG TABLET/CAPLET (TYLENOL) PO STA (17:11)
[2016-09-20 18:25] VITALS: BP 143/88
[2016-09-20] MEDS ORDERED: LEVOFLOXACIN 500 MG TAB (LEVAQUIN) PO SCH (19:00)
[2016-09-20 20:05] VITALS: BP 138/95
[2016-09-20] MEDS: methylPREDNISolone 125 MG (Solu-MEDROL) VIAL IVP SCH (21:14)
[2016-09-20] MEDS ORDERED: RT-ALBUTEROL/IPRATROPIUM 3 ML (DUONEB) VIAL INH PRN (21:30)
[2016-09-20] MEDS ORDERED: CETI10TA20 PO (21:43)
[2016-09-20] MEDS ORDERED: OLAN5TAB25 PO (21:43)
[2016-09-20] MEDS ORDERED: GABA-486 PO (21:43)
[2016-09-20] MEDS ORDERED: OLAN15TA19 PO (21:43)
[2016-09-20] MEDS: RT-ALBUTEROL/IPRATROPIUM 3 ML (DUONEB) VIAL INH SCH (22:03)
[2016-09-20] MEDS: ALPRAZolam 0.25 MG (XANAX) TAB PO PRN (22:28)
[2016-09-20] MEDS: ACETAMINOPHEN 325 MG TABLET/CAPLET (TYLENOL) PO PRN (22:54)
[2016-09-20] MEDS: NICOTINE 14 MG (NICODERM) PATCH TD SCH (23:20)
[2016-09-21] VITALS (16 sets, daily range): BP systolic 118–153; BP diastolic 77–108
[2016-09-21] MEDS: HYDROcodone/APAP 5 MG/325 MG (LORTAB) TAB PO PRN ×3 (00:42→22:47)
[2016-09-21] MEDS: RT-ALBUTEROL/IPRATROPIUM 3 ML (DUONEB) VIAL INH SCH ×6 (02:07→21:30)
[2016-09-21] MEDS: methylPREDNISolone 125 MG (Solu-MEDROL) VIAL IVP SCH ×3 (05:12→22:42)
[2016-09-21 06:21] LABS: BASOPHILS % (AUTO) 0 % (0-10); EOSINOPHILS % (AUTO) 0 % (0-10); LYMPHOCYTES # (AUTO) 0.9 X 10^3 (1.0-4.0); LYMPHOCYTES % (AUTO) 8 % (12-44); MEAN CORPUSCULAR HEMOGLOBIN 30 PG (25-34); MEAN CORPUSCULAR HGB CONC 33 G/DL (32-36); MEAN CORPUSCULAR VOLUME 93 FL (80-99); MEAN PLATELET VOLUME 9.6 FL (7.4-10.4); MONOCYTES # (AUTO) 0.1 X 10^3 (0.0-1.0); MONOCYTES % (AUTO) 1 % (0-12); NEUTROPHILS # (AUTO) 10.6 X 10^3 (1.8-7.8); NEUTROPHILS % (AUTO) 91 % (42-75); PLATELET COUNT 294 10^3/uL (130-400); RED BLOOD COUNT 4.68 10^6/uL (4.35-5.85); RED CELL DISTRIBUTION WIDTH 14.4 % (10.0-14.5); WHITE BLOOD COUNT 11.6 10^3/uL (4.3-11.0)
[2016-09-21] MEDS: ALPRAZolam 0.25 MG (XANAX) TAB PO PRN (06:22)
[2016-09-21 06:39] LABS: ALBUMIN 3.8 GM/DL (3.2-4.5); BILIRUBIN,TOTAL 0.3 MG/DL (0.1-1.0); CALCIUM 9.4 MG/DL (8.5-10.1); CREATININE SERUM 0.97 MG/DL (0.60-1.30); POTASSIUM 3.8 MMOL/L (3.6-5.0)
[2016-09-21] MEDS: RT-ADVAIR HFA 115/21 MCG PER PUFF IH SCH ×2 (06:40→19:26)
[2016-09-21 06:53] LABS: BAND NEUTROPHILS 0 %; BASOPHILS % (MANUAL) 0 %; EOSINOPHILS % (MANUAL) 0 %; LYMPHOCYTES % (MANUAL) 5 %; NEUTROPHILS % (MANUAL) 94 %
[2016-09-21] MEDS ORDERED: RT-ALBUTEROL SULF 2.5 MG/3 ML PRE-MIX VIAL IH ONE (07:00)
[2016-09-21] MEDS ORDERED: RT-ALBUTEROL/IPRATROPIUM 3 ML (DUONEB) VIAL INH ONE (07:00)
--- NOTE | 2016-09-21 08:42 | Diagnostic Imaging Report ---
INDICATION: COPD COMPARISON: 09/20/16 FINDINGS: Frontal and lateral views of the chest demonstrate persistent but decreased atelectasis in both bases. There is no pneumothorax, effusion or new infiltrate. Heart is prominent without pulmonary edema. IMPRESSION: Persistent but decreasing atelectasis both bases. Dictated by: Dictated on workstation # [id number]
[2016-09-21] MEDS ORDERED: NICOTINE 14 MG (NICODERM) PATCH TD SCH (09:00)
[2016-09-21] MEDS: UMECLIDINIUM BROMIDE (INCRUSE ELLIPTA) 7'S IH SCH (09:48)
[2016-09-21 10:40] LABS: ABG BASE EXCESS -1.2 MMOL/L (-2.5-2.5); ABG HCO3 25 MMOL/L (23-27); ABG OXYGEN SATURATION 95 % (94-100); ABG PCO2 52 MMHG (35-45); ABG PO2 77 MMHG (79-93); ABG TCO2 26.1 MMOL/L (21.0-31.0)
[2016-09-21 10:43] LABS: ABG PH 7.29 (7.37-7.43); ALLENS TEST YES-POS; PATIENT TEMP 98.3
--- NOTE | 2016-09-21 10:57 | Diagnostic Imaging Report ---
INDICATION: Abdominal pain, distention. COMPARISON: None. FINDINGS: Two views of the abdomen demonstrate mild constipation without obstruction or ileus. There is no large pocket of free air. IMPRESSION: Constipation. Dictated by: Dictated on workstation # [id number]
[2016-09-21] MEDS ORDERED: NS 100 ML (IVPB) BAG IV ONE (11:15)
[2016-09-21] MEDS ORDERED: CATHETER FLUSH 10 ML SYR IV PRN (11:15)
[2016-09-21] MEDS ORDERED: IOHEXOL 350 MG/ML 150 ML (OMNIPAQUE 350) VIAL IV ONE (11:15)
[2016-09-21 11:23] LABS: CREATINE KINASE 114 U/L (29-168)
[2016-09-21 11:29] LABS: TROPONIN I < 0.30 NG/ML (<0.30)
--- NOTE | 2016-09-21 11:52 | Diagnostic Imaging Report ---
PROCEDURE: CT angiography of the chest with contrast. TECHNIQUE: Multiple contiguous axial images were obtained through the chest after uneventful bolus administration of intravenous contrast. Reconstructed CTA MIP acquisitions were also performed. INDICATION: Headache, shortness of breath, pulmonary embolism. COMPARISON: 08/31/14 FINDINGS: The heart is minimally enlarged. There is no pericardial effusion. Pulmonary arteries and aorta are grossly normal. No embolism or aortic dissection is identified. Centrilobular emphysema is seen in the mid and upper lung zones. There is some minimal consolidation in the lingula and left lung base. This is unchanged from the prior examination. The right lung is clear. There is no infiltrate. Osseous structures are stable. Visualized upper abdominal solid organs are intact. IMPRESSION: 1. Minimal cardiac enlargement without pulmonary edema. 2. No pulmonary embolism or aortic pathology. 3. COPD with stable atelectasis and/or consolidation in the left lung base and lingula. Dictated by: Dictated on workstation # [id number]
[2016-09-21] MEDS: DULoxetine 30 MG (CYMBALTA) CAP PO SCH ×2 (12:10→20:40)
[2016-09-21] MEDS: KETOROLAC 30 MG/ML VIAL IVP PRN ×2 (12:11→18:17)
[2016-09-21] MEDS ORDERED: ALPRAZolam 0.25 MG (XANAX) TAB PO NR (12:15)
--- NOTE | 2016-09-21 12:42 | Diagnostic Imaging Report ---
INDICATION: Lower extremity swelling and pain. COMPARISON: None. FINDINGS: Visualized deep and superficial venous system is patent. There is no mass or DVT. IMPRESSION: Negative lower extremity venous Doppler. Dictated by: Dictated on workstation # [id number]
[2016-09-21 15:28] LABS: ABG BASE EXCESS 1.6 MMOL/L (-2.5-2.5); ABG HCO3 27 MMOL/L (23-27); ABG OXYGEN SATURATION 97 % (94-100); ABG PCO2 54 MMHG (35-45); ABG PO2 97 MMHG (79-93); ABG TCO2 28.7 MMOL/L (21.0-31.0)
[2016-09-21 15:31] LABS: ABG PH 7.32 (7.37-7.43)
[2016-09-21 15:32] LABS: ALLENS TEST YES-POS; PATIENT TEMP 99.1
[2016-09-21] MEDS: inSUlin ASPART (NovoLOG) 1 UNIT/0.01 ML (CHARGE PER UNIT) SC SCH ×2 (15:39→18:52)
--- NOTE | 2016-09-21 15:52 | History & Physicial (CHS) ---
HPI History of Present Illness: 51 yo F that presented to urgent care at [facility] with increasing shortness of breath. Patient had taken albuterol treatment at home without improvement. She then had 2 duoneb treatments at the clinic without improvement and was found to be hypoxic at 86 upon arriving at [facility]. Patient states that she has been through out in the past couple weeks. She had a nephew that just . Since then she has been helping her sister nearly every day which is an hour drive for her. Denies any sick contacts or pain. Patient has a h/o COPD but states that she has not missed any doses. Denies fever or chills. No chest pain. Feels bloated and states that she has not had a BM in over a week but she has not been eating that much. Previous Cath and echo in Mar 2015 per patient that were both normal. + Smoking history of a least 1 ppd since she was in her 20s. Source: patient, RN/MD Exam Limitations: no limitations Date seen by provider: Sep 21, 2016 Time Seen by Provider: 09:15 Attending Physician Timothy Cunningham MD PCP Litzy Zepeda DO Consult Date of Admission Sep 21, 2016 at 11:00 Home Medications Home Medications Reviewed patient Home Medication Reconciliation Form Allergies Coded Allergies: buspirone (Verified Allergy, Mild, 05/09/13) Made"legs Shaky" amlodipine (Verified Allergy, Unknown, 05/09/13) Anasarca WTB-Rddqxq-Moufnz Hx Patient Social History Alcohol Use: Denies Use Recreational Drug Use: No (4 YRS AGO) Smoking Status: Current Everyday Smoker Type Used: Cigarettes 2nd Hand Smoke Exposure: Yes Recent Foreign Travel: No Contact w/other who traveled: No Recent Hopitalizations: No Recent Infectious Disease Expo: No Physical Abuse Screen: No Sexual Abuse: No Immunizations Up To Date Tetanus Booster (TDap): More than 5yrs Date of Pneumonia Vaccine: Dec 08, 2011 Date of Influenza Vaccine: Apr 09, 2012 Past Medical History Past Medical History 1. HTN 2. COPD 3. Tobaccoism 4.Chronic Migraines- with rebound headaches secondary to overuse of tylenol and ibuprofen 5. Anxiety 6. Depression 7. Endometrial hypertrophy 8. DM- II, pt. stopped taking her medications 9. HLP- with elevated triglycerides 10. Chronic Insomnia 11. Gastritis 12. Methamphetamine abuse with most recent drug screen in clinic 09/19 positive for methamphetamine 13. Several admissions for overdose of benzodiazapine Past Surgical History 1. EGD- Gastritis [facility] 2. Colonoscopy- [facility] Family Medical History Significant Family History: No Pertinent Family Hx Family History: Cancer 03 MOTHER, Onset:66 (LUNG ) 09 BROTHER (LUNG ) Congestive heart failure 03 FATHER Review of Systems (CHC) Constitutional: No chills, No fever, malaise EENTM: no symptoms reported Respiratory: cough, dyspnea on exertion, No hemoptysis, short of breath Cardiovascular: No chest pain, edema, No palpitations Gastrointestinal: abdominal pain (diffuse fullness), constipation, loss of appetite, No nausea, No vomiting Genitourinary: no symptoms reported, No dysuria, No frequency, No hematuria : No Musculoskeletal: no symptoms reported Skin: no symptoms reported Psychiatric/Neurological: Anxiety, Depressed, Headache, Denies Numbness, Denies Weakness Reviewed Test Results Reviewed Test Results Lab Laboratory Tests Test 09/20/16 16:14 09/20/16 16:23 09/20/16 16:25 09/21/16 06:03 Range/Units Urine Color YELLOW Urine Clarity CLEAR Urine pH 7 5-9 Urine Specific [place] 1.010 L 1.016-1.022 Urine Protein NEGATIVE NEGATIVE Urine Glucose (UA) NEGATIVE NEGATIVE Urine Ketones NEGATIVE NEGATIVE Urine Nitrite NEGATIVE NEGATIVE Urine Bilirubin NEGATIVE NEGATIVE Urine Urobilinogen NORMAL NORMAL MG/DL Urine Leukocyte Esterase NEGATIVE NEGATIVE Urine RBC (Auto) NEGATIVE NEGATIVE Urine RBC NONE /HPF Urine WBC RARE /HPF Urine Squamous Epithelial Cells 2-5 /HPF Urine Crystals NONE /LPF Urine Bacteria NEGATIVE /HPF Urine Casts NONE /LPF Urine Mucus NEGATIVE /LPF Urine Culture Indicated NO White Blood Count 13.9 H 11.6 H 4.3-11.0 10^3/uL Red Blood Count 4.72 4.68 4.35-5.85 10^6/uL Hemoglobin 14.3 14.2 11.5-16.0 G/DL Hematocrit 44 44 35-52 % Mean Corpuscular Volume 93 93 80-99 FL Mean Corpuscular Hemoglobin 30 30 25-34 PG Mean Corpuscular Hemoglobin Concent 32 33 32-36 G/DL Red Cell Distribution Width 14.5 14.4 10.0-14.5 % Platelet Count 300 294 130-400 10^3/uL Mean Platelet Volume 9.6 9.6 7.4-10.4 FL Neutrophils (%) (Auto) 82 H 91 H 42-75 % Lymphocytes (%) (Auto) 11 L 8 L 12-44 % Monocytes (%) (Auto) 5 1 0-12 % Eosinophils (%) (Auto) 2 0 0-10 % Basophils (%) (Auto) 0 0 0-10 % Neutrophils # (Auto) 11.3 H 10.6 H 1.8-7.8 X 10^3 Lymphocytes # (Auto) 1.5 0.9 L 1.0-4.0 X 10^3 Monocytes # (Auto) 0.7 0.1 0.0-1.0 X 10^3 Eosinophils # (Auto) 0.3 0.0 0.0-0.3 10^3/uL Basophils # (Auto) 0.0 0.0 0.0-0.1 10^3/uL Sodium Level 141 141 135-145 MMOL/L Potassium Level 3.4 L 3.8 3.6-5.0 MMOL/L Chloride Level 106 106 98-107 MMOL/L Carbon Dioxide Level 24 24 21-32 MMOL/L Anion Gap 11 11 5-14 MMOL/L Blood Urea Nitrogen 6 L 10 7-18 MG/DL Creatinine 0.85 0.97 0.60-1.30 MG/DL Estimat Glomerular Filtration Rate > 60 60 BUN/Creatinine Ratio 7 10 Glucose Level 139 H 220 H 70-105 MG/DL Calcium Level 8.9 9.4 8.5-10.1 MG/DL Total Bilirubin 0.4 0.3 0.1-1.0 MG/DL Aspartate Amino Transf (AST/SGOT) 19 21 5-34 U/L Alanine Aminotransferase (ALT/SGPT) 33 40 0-55 U/L Alkaline Phosphatase 104 101 40-136 U/L Total Protein 7.0 7.0 6.4-8.2 GM/DL Albumin 3.8 3.8 3.2-4.5 GM/DL Erythrocyte Sedimentation Rate 19 0-30 MM/HR C-Reactive Protein High Sensitivity 3.69 H 0.00-0.50 MG/DL Neutrophils % (Manual) 94 % Lymphocytes % (Manual) 5 % Monocytes % (Manual) 1 % Eosinophils % (Manual) 0 % Basophils % (Manual) 0 % Band Neutrophils 0 % Blood Morphology Comment NORMAL Test 09/21/16 10:34 09/21/16 10:50 09/21/16 14:47 09/21/16 15:25 Range/Units Blood Gas Puncture Site R RADIAL L RAD Blood Gas Patient Temperature 98.3 99.1 Arterial Blood pH 7.29 *L 7.32 *L 7.37-7.43 Arterial Blood Partial Pressure CO2 52 H 54 H 35-45 MMHG Arterial Blood Partial Pressure O2 77 L 97 H 79-93 MMHG Arterial Blood HCO3 25 27 23-27 MMOL/L Arterial Blood Total CO2 26.1 28.7 21.0-31.0 MMOL/L Arterial Blood Oxygen Saturation 95 97 94-100 % Arterial Blood Base Excess -1.2 1.6 -2.5-2.5 MMOL/L [place]sten Test YES-POS YES-POS Blood Gas Ventilator Setting NO NO Blood Gas Inspired Oxygen 17 L 30% Total Creatine Kinase 114 29-168 U/L Creatine Kinase MB 5.6 <6.6 NG/ML Troponin I < 0.30 <0.30 NG/ML Glucometer 188 H 70-110 MG/DL Radiology Date of Exam: 09/21/16 CHEST PA/LAT (2 VIEW) INDICATION: COPD COMPARISON: 09/20/16 FINDINGS: Frontal and lateral views of the chest demonstrate persistent but decreased atelectasis in both bases. There is no pneumothorax, effusion or new infiltrate. Heart is prominent without pulmonary edema. IMPRESSION: Persistent but decreasing atelectasis both bases. Date of Exam: 09/21/16 CT ANGIO CHEST W PROCEDURE: CT angiography of the chest with contrast. TECHNIQUE: Multiple contiguous axial images were obtained through the chest after uneventful bolus administration of intravenous contrast. Reconstructed CTA MIP acquisitions were also performed. INDICATION: Headache, shortness of breath, pulmonary embolism. COMPARISON: 08/31/14 FINDINGS: The heart is minimally enlarged. There is no pericardial effusion. Pulmonary arteries and aorta are grossly normal. No embolism or aortic dissection is identified. Centrilobular emphysema is seen in the mid and upper lung zones. There is some minimal consolidation in the lingula and left lung base. This is unchanged from the prior examination. The right lung is clear. There is no infiltrate. Osseous structures are stable. Visualized upper abdominal solid organs are intact. IMPRESSION: 1. Minimal cardiac enlargement without pulmonary edema. 2. No pulmonary embolism or aortic pathology. 3. COPD with stable atelectasis and/or consolidation in the left lung base and lingula. Physical Exam-(CHC) Physical Exam Vital Signs VS - Last 72 Hours, by Label 09/20/16 09/20/16 09/20/16 09/20/16 15:29 15:45 15:47 15:53 Temp 98.9 Pulse 114 Resp 20 B/P (MAP) 132/99 Pulse Ox 94 93 94 94 O2 Delivery Room Air Nasal Cannula Nasal Cannula Nasal Cannula O2 Flow Rate 1.00 2.00 1.00 FiO2 94 09/20/16 09/20/16 09/20/16 09/20/16 16:12 17:49 18:25 19:55 Temp 98.1 98.7 Pulse 107 106 Resp 22 B/P (MAP) 143/88 Pulse Ox 97 93 95 91 O2 Delivery Nasal Cannula Nasal Cannula Nasal Cannula O2 Flow Rate 1.50 1.50 2.00 FiO2 97 09/20/16 09/20/16 09/20/16 09/20/16 19:55 20:05 20:59 22:03 Temp 98.0 Pulse 105 Resp 28 B/P (MAP) 138/95 Pulse Ox 91 93 95 95 O2 Delivery Nasal Cannula Nasal Cannula Room Air Nasal Cannula O2 Flow Rate 2.00 2.00 3.00 3.00 09/21/16 09/21/16 09/21/16 09/21/16 00:00 02:07 04:00 04:34 Temp 96.0 97.2 Pulse 107 111 Resp B/P (MAP) 147/84 120/77 Pulse Ox 95 94 95 95 O2 Delivery Nasal Cannula Nasal Cannula Nasal Cannula Nasal Cannula O2 Flow Rate 2.00 3.00 2.00 3.00 09/21/16 09/21/16 09/21/16 09/21/16 06:41 07:10 08:00 09:00 Temp 98.8 Pulse 114 Resp 26 B/P (MAP) 133/81 Pulse Ox 93 95 95 98 O2 Delivery Nasal Cannula Nasal Cannula Vapotherm Nasal Cannula O2 Flow Rate 3.00 4.00 35.00 30.00 17.00 FiO2 97 09/21/16 09/21/16 09/21/16 09/21/16 09:49 10:53 11:44 11:54 Pulse 112 112 108 Resp 23 14 Pulse Ox 96 97 98 O2 Delivery Nasal Cannula O2 Flow Rate 3.00 30.00 30.00 09/21/16 09/21/16 13:00 15:24 Pulse 107 103 Resp 14 Pulse Ox 98 O2 Flow Rate 30.00 Capillary Refill : Less Than 3 Seconds General Appearance: WD/WN, moderate distress HEENT: PERRL/EOMI, pharynx normal Neck: non-tender, full range of motion, supple, normal inspection Respiratory: chest non-tender, no accessory muscle use, respiratory distress, No crackles, No rhonchi, wheezing, expiration Cardiovascular: normal peripheral pulses, regular rate, rhythm, no gallop, no JVD, no murmur Gastrointestinal: normal bowel sounds, soft, no organomegaly, other (Mild ttp LLQ) Extremities: normal range of motion, non-tender, normal inspection, no calf tenderness, normal capillary refill, pedal edema (1+) 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, no motor/sensory deficits, alert, normal mood/affect, oriented x 3 Skin: normal color, warm/dry Lymphatic: no adenopathy Assessment/Plan Assessment/Plan Plan 51 yo F admitted for acute respiratory failure likely 2/2 COPD Exacerbation Acute Respiratory Failure with Hypoxia - CXR showed atelectasis w/o consolidation, CTA neg for PE - CE normal x1 - ABG showed respiratory acidosis, patient started on Bipap - A/A nebs scheduled and PRN - Solumedrol 125 q8hrs - Levaquin D1 - Repeat ABG 4 hrs after bipap started HTN: At Goal Tachycardia: Likely 2/2 breathing treatments Consipation - Will start Miralax BID when patient is off bipap H/o DM - Will get A1c while inpatient H/o Drug Abuse - UDS pending Insomnia - Ambien PRN FEN: Cardiac diet DVT PPX: Lovenox 40 qD GFR >40 Dispo: Admit patient to ICU for bipap Diagnosis/Problems: Clinical Quality Measures DVT/VTE Risk/Contraindication: Risk Factor Score Per Nursin RFS Level Per Nursing on Admit: 3=High Copy Copies To 1: TIMOTHY CUNNINGHAM MD, HOLLY R MD Sep 21, 2016 15:52
[2016-09-21] MEDS: ENOXAPARIN 40 MG/0.4 ML (LOVENOX) SYR SC SCH (16:56)
[2016-09-21] MEDS ORDERED: LEVOFLOXACIN 500 MG TAB (LEVAQUIN) PO SCH (19:00)
[2016-09-21] MEDS: ALPRAZolam 0.5 MG (XANAX) TAB PO PRN (20:40)
[2016-09-21] MEDS: ACETAMINOPHEN 325 MG TABLET/CAPLET (TYLENOL) PO PRN (20:42)
[2016-09-21] MEDS: ZOLPIDEM 5 MG (AMBIEN) TAB PO SCH (21:54)
[2016-09-22] VITALS (26 sets, daily range): BP systolic 108–149; BP diastolic 64–107
[2016-09-22] MEDS: ZOLPIDEM 5 MG (AMBIEN) TAB PO SCH ×2 (01:27→20:32)
[2016-09-22] MEDS: KETOROLAC 30 MG/ML VIAL IVP PRN ×2 (01:27→16:28)
[2016-09-22] MEDS: inSUlin ASPART (NovoLOG) 1 UNIT/0.01 ML (CHARGE PER UNIT) SC SCH ×6 (01:27→20:31)
[2016-09-22] MEDS: RT-ALBUTEROL/IPRATROPIUM 3 ML (DUONEB) VIAL INH SCH ×6 (02:08→22:23)
[2016-09-22 04:11] LABS: BASOPHILS % (AUTO) 0 % (0-10); EOSINOPHILS % (AUTO) 0 % (0-10); LYMPHOCYTES % (AUTO) 5 % (12-44); MEAN CORPUSCULAR HEMOGLOBIN 31 PG (25-34); MEAN CORPUSCULAR HGB CONC 32 G/DL (32-36); MEAN CORPUSCULAR VOLUME 95 FL (80-99); MONOCYTES # (AUTO) 0.6 X 10^3 (0.0-1.0); MONOCYTES % (AUTO) 3 % (0-12); NEUTROPHILS # (AUTO) 17.6 X 10^3 (1.8-7.8); NEUTROPHILS % (AUTO) 92 % (42-75); PLATELET COUNT 292 10^3/uL (130-400); RED BLOOD COUNT 4.46 10^6/uL (4.35-5.85); RED CELL DISTRIBUTION WIDTH 14.4 % (10.0-14.5); WHITE BLOOD COUNT 19.1 10^3/uL (4.3-11.0)
[2016-09-22 04:17] LABS: ABG BASE EXCESS 2.1 MMOL/L (-2.5-2.5); ABG HCO3 27 MMOL/L (23-27); ABG OXYGEN SATURATION 96 % (94-100); ABG PCO2 52 MMHG (35-45); ABG PO2 79 MMHG (79-93); ABG TCO2 29.1 MMOL/L (21.0-31.0)
[2016-09-22 04:19] LABS: ABG PH 7.34 (7.37-7.43); ALLENS TEST YES-POS
[2016-09-22 04:20] LABS: PATIENT TEMP 97.2
[2016-09-22 04:30] LABS: ANION GAP 12 MMOL/L (5-14); BLOOD UREA NITROGEN 14 MG/DL (7-18); BUN/CREATININE RATIO 15; CALCIUM 9.3 MG/DL (8.5-10.1); CARBON DIOXIDE 22 MMOL/L (21-32); CHLORIDE 104 MMOL/L (98-107); CREATININE SERUM 0.96 MG/DL (0.60-1.30); GFR ESTIMATED > 60; GLUCOSE 160 MG/DL (70-105); MAGNESIUM 1.9 MG/DL (1.8-2.4); PHOSPHORUS 3.2 MG/DL (2.3-4.7); POTASSIUM 4.2 MMOL/L (3.6-5.0); SODIUM 138 MMOL/L (135-145)
[2016-09-22] MEDS ORDERED: POLYETHYLENE GLYCOL 17 GM (MIRALAX) PACK ONE (04:59)
[2016-09-22] MEDS: POTASSIUM CL 10MEQ/50ML IVPB 50 ML IV SCH (05:00)
[2016-09-22] MEDS: MAGNESIUM 1 GM/100 ML IVPB 100 ML IV SCH (05:00)
[2016-09-22] MEDS: KCL 20 MEQ TAB (K-DUR) PO SCH (05:00)
[2016-09-22] MEDS: ALPRAZolam 0.5 MG (XANAX) TAB PO PRN ×3 (05:26→20:32)
[2016-09-22] MEDS: methylPREDNISolone 125 MG (Solu-MEDROL) VIAL IVP SCH (05:26)
[2016-09-22] MEDS: HYDROcodone/APAP 5 MG/325 MG (LORTAB) TAB PO PRN ×2 (05:27→18:08)
[2016-09-22] MEDS ORDERED: RT-ALBUTEROL SULF 2.5 MG/3 ML PRE-MIX VIAL ONE (06:25)
[2016-09-22] MEDS ORDERED: RT-IPRATROPIUM (ATROVENT) 0.5MG/2.5ML AMP IH ONE (06:26)
--- NOTE | 2016-09-22 06:26 | Pulmonary Consultation ---
History of Present Illness History of Present Illness Date of Consultation 09/22/16 06:21 Time Seen by Provider: 07:06 Date of Admission History of Present Illness 51yo with hx of severe COPD and acute exacerbations requiring hospitalization presented presented to hospital as direct admit from [facility] secondary to worsening SOB x 2 wks. Home SVN txs did not improve symptoms. She was found to be hypoxic with Sp02 of 86% upon arriving at [facility]. No sick contacts. No CP, f/ns/c. She continues to smoke. Pt was transferred to ICU last night secondary to worsening SOB and is now requiring noninvasive ventilation. I am consulted for pulmonary management. Labs and radiology reviewed. Allergies and Home Medications Allergies Coded Allergies: buspirone (Verified Allergy, Mild, 05/09/13) Made"legs Shaky" amlodipine (Verified Allergy, Unknown, 05/09/13) Anasarca Home Medications Albuterol Sulfate 18 Gm Hfa.aer.ad, 2 PUFF IH Q4H PRN for SHORTNESS OF BREATH, ( Reported) Albuterol Sulfate 2.5 Mg/3 Ml Vial.neb, 2.5 MG IH TID, (Reported) Amitriptyline HCl 150 Mg Tablet, 150 MG PO HS, (Reported) Cetirizine HCl 10 Mg Tablet, 10 MG PO DAILY PRN for CONGESTION, (Reported) Clonazepam 0.5 Mg Tab.rapdis, 0.5 MG PO BID, #0 TAPER DOSE TO 0.5MG (OR 1/2 OF THE 1MG TAB) TWICE DAILY Prescribed by: CONNOR JOHNSTON on 12/21/15 1123 Duloxetine HCl 60 Mg Capsule.dr, 60 MG PO BID, (Reported) Fluticasone/Salmeterol 1 Each Blst.w.dev, 1 PUFF IH BID, (Reported) Gabapentin 100 Mg Capsule, 100 MG PO TID, (Reported) Hydrochlorothiazide 50 Mg Tablet, 50 MG PO DAILY, (Reported) Olanzapine 5 Mg Tablet, 5 MG PO DAILY, (Reported) Olanzapine 15 Mg Tablet, 15 MG PO HS, (Reported) Tiotropium [place] 1 Inh Aerp, 1 CAP IH DAILY, (Reported) Topiramate 100 Mg Tablet, 100 MG PO BID, (Reported) Past Easnmrl-Bgyfaq-Hmrcle Hx Patient Social History Alcohol Use: Denies Use Recreational Drug Use: No (4 YRS AGO) Smoking Status: Current Everyday Smoker Type Used: Cigarettes 2nd Hand Smoke Exposure: Yes Recent Foreign Travel: No Contact w/Someone Who Travel: No Recent Infectious Disease Expo: No Recent Hopitalizations: No Physical Abuse Screen: No Sexual Abuse: No Immunizations Up To Date Tetanus Booster (TDap): More than 5yrs Date of Pneumonia Vaccine: Dec 08, 2011 Date of Influenza Vaccine: Apr 09, 2012 Seasonal Allergies Seasonal Allergies: No Surgeries HX Surgeries: No Respiratory Hx Respiratory Disorders: Yes (persistent tobacco use) Respiratory Disorders: Asthma, COPD Cardiovascular Hx Cardiac Disorders: Yes Cardiac Disorders: Hypertension Neurological Hx Neurological Disorders: Yes Neurological Disorders: Headaches /Migraines 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 System Hx 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 Disorders: No Sexually Transmitted Disease: No HIV/AIDS: No 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 Genitourinary Hx Genitourinary Disorders: No Gastrointestinal Hx Gastrointestinal Disorders: No Gastrointestinal Disorders: Chronic Constipation, Chronic Diarrhea Musculoskeletal Hx Musculoskeletal Disorders: Yes (chronic shoulder and neck pain) Endocrine Hx Endocrine Disorders: Yes (DM TYPE II) Endocrine Disorders: Diabetes, Non-Insulin dep HEENT HX ENT Disorders: No Cancer Hx Cancer: No Psychosocial Hx Psychiatric Problems: Yes Behavioral Health Disorders: Anxiety, Depression Integumentary HX Skin/Integumentary Disorder: No Blood Transfusions Hx Blood Disorders: No Adverse Reaction to a Blood Tr: No Reviewed Nursing Assessment Reviewed/Agree w Nursing PMH: Yes Family Medical History Significant Family History: No Pertinent Family Hx Family Medial History: Cancer 03 MOTHER, Onset:66 (LUNG ) 09 BROTHER (LUNG ) Congestive heart failure 03 FATHER Review of Systems Time Seen by Provider: 07:05 Constitutional: Malaise, Sweats, Weakness, No: Chills, Fever, Other Eyes: No: Conjunctivae inflammation, Eyelid inflammation, Other, Pain, Redness , Vision change ENT: No: Ear discharge, Ear pain, Mouth pain, Mouth swelling, Nose congestion, Nose discharge, Nose pain, Other, Throat pain, Throat swelling Respiratory: Cough, Shortness of breath, Sputum, Wheezing Cardiovascular: Edema, Lt Headedness, Orthopnea, Palpitations, Paroxysmal Noc. Dyspnea, No: Chest Pain, Other Gastrointestinal: Constipation, No: Abdominal Pain, Diarrhea, Hematochezia, Melena, Nausea, Other, Vomiting Genitourinary: No Dysuria, No Frequency, No Incontinence, No Hematuria, No Retention, No Other Exam Exam Vital Signs Date Time Temp Pulse Resp B/P (MAP) Pulse Ox O2 Delivery O2 Flow Rate FiO2 09/22/16 06:00 101 13 112/84 98 NIV Bilevel 25.00 09/22/16 05:00 98 11 126/90 92 NIV Bilevel 25.00 09/22/16 04:00 97.2 98 19 120/85 93 NIV Bilevel 25.00 09/22/16 04:00 94 NIV Bilevel 30 09/22/16 03:54 98 23 98 30.00 09/22/16 03:00 98 15 120/85 95 NIV Bilevel 30.00 09/22/16 02:08 100 16 94 30.00 09/22/16 02:00 99 14 122/80 95 NIV Bilevel 30.00 09/22/16 01:00 101 12 114/93 93 NIV Bilevel 30.00 09/22/16 01:00 101 09/22/16 00:15 99 13 96 30.00 09/22/16 00:00 98 12 141/93 96 NIV Bilevel 30.00 09/22/16 00:00 93 NIV Bilevel 30 09/21/16 23:00 98 14 127/87 99 NIV Bilevel 30.00 09/21/16 22:00 103 13 120/83 93 NIV Bilevel 30.00 09/21/16 21:30 103 15 93 30.00 09/21/16 21:00 105 15 118/82 95 NIV Bilevel 30.00 09/21/16 21:00 95 NIV Bilevel 30 09/21/16 20:33 97.7 108 22 131/92 95 NIV Bilevel 30.00 09/21/16 20:00 120 42 153/108 97 NIV Bilevel 30.00 09/21/16 19:36 97 NIV Bilevel 30 09/21/16 19:26 113 35 97 30.00 09/21/16 19:00 103 12 129/78 97 NIV Bilevel 30.00 09/21/16 19:00 103 09/21/16 18:00 105 26 122/82 95 NIV Bilevel 30.00 09/21/16 17:00 103 20 131/94 95 NIV Bilevel 30.00 09/21/16 16:00 104 13 130/96 99 NIV Bilevel 30.00 09/21/16 15:30 NIV Bilevel 30 09/21/16 15:24 103 14 98 30.00 09/21/16 15:00 105 12 125/92 98 NIV Bilevel 30.00 09/21/16 14:00 105 10 120/92 97 NIV Bilevel 30.00 09/21/16 13:00 107 09/21/16 13:00 107 12 122/87 96 NIV Bilevel 30.00 09/21/16 12:00 112 20 143/87 97 NIV Bilevel 30.00 09/21/16 11:54 108 09/21/16 11:44 112 14 98 30.00 09/21/16 11:40 NIV Bilevel 30 09/21/16 10:53 112 23 97 30.00 09/21/16 09:49 96 Nasal Cannula 3.00 09/21/16 09:00 98 Nasal Cannula 30.00 97 09/21/16 08:00 98.8 114 26 133/81 95 Vapotherm 35.00 17.00 09/21/16 07:10 95 Nasal Cannula 4.00 09/21/16 06:41 93 Nasal Cannula 3.00 I & O 09/22/16 07:00 Intake Total 1992 ml Output Total 1100 ml Balance 892 ml General Appearance: Moderate Distress Neck: Full Range of Motion, Normal Inspection, Non Tender Respiratory: Accessory Muscle Use, Decreased Breath Sounds, Expiration, Wheezing Cardiovascular: No Gallop, No JVD, No Murmur, Tachycardia Capillary Refill: Less Than 3 Seconds Gastrointestinal: normal bowel sounds, soft, no organomegaly, other (Mild ttp LLQ) Extremity: Normal Capillary Refill, No Calf Tenderness, No Pedal Edema Neurologic/Psychiatric: Alert, Oriented x3 Skin: Normal Color, Warm/Dry Lymphatic: No Adenopathy Results Lab Laboratory Tests 09/20/16 16:23 09/21/16 06:03 09/22/16 03:41 Assessment/Plan Assessment/Plan Acute respiratory failure requiring noninvasive ventilation - Worsening transferred to ICU from 4th floor last night -give 1hr long SVN -trial pt off BiPAP after SVN -Continue steroids but decrease to 40 IV Q6 Acute on chronic respiratory failure -Pt will benefit from home vent to mask upon discharge. -Levaquin -Check BNP Pneumonia with sepsis -Farmer culture - if not done yet -Change PO Levaquin to vanco and zosyn Atelectasis Constipation -colace BID -MOM enema -Lactulose BID Tobacco use -education 255 Clinical Quality Measures DVT/VTE Risk/Contraindication: Risk Factor Score Per Nursin RFS Level Per Nursing on Admit: 3=High WILLIAMS THOMAS DO Sep 22, 2016 06:26
[2016-09-22] MEDS ORDERED: MINERAL OIL ENEMA 133 ML BTL PR NR (07:00)
[2016-09-22] MEDS ORDERED: PIPERACILLIN SODIUM/TAZOBACTAM 4.5 GM in NS (IVPB) 100 ML IV NR (07:10)
[2016-09-22] MEDS ORDERED: PHARMACY TO DOSE IV SCH (07:15)
[2016-09-22] MEDS ORDERED: VANCOMYCIN INJECTION 2,500 MG in NS IV 500 ML 500 ML IV NR (07:30)
[2016-09-22] MEDS: LACTULOSE SYRUP 10GM/15ML (ENULOSE) 30ML UDC PO SCH ×2 (08:13→20:31)
[2016-09-22] MEDS: NICOTINE 14 MG (NICODERM) PATCH TD SCH (08:13)
[2016-09-22] MEDS: DULoxetine 30 MG (CYMBALTA) CAP PO SCH ×2 (08:13→20:32)
[2016-09-22] MEDS: DOCUSATE SODIUM 100 MG (COLACE) CAP PO SCH ×2 (08:13→20:32)
[2016-09-22] MEDS: PATCH REMOVAL TP SCH (08:14)
--- NOTE | 2016-09-22 08:37 | Diagnostic Imaging Report ---
INDICATION: Dyspnea. TECHNIQUE: A PA chest was obtained at 0438 hours. COMPARISON: 09/21/2016. FINDINGS: The heart is mildly enlarged. There are chronic appearing increased interstitial markings with COPD changes. There is no acute consolidation, pneumothorax, or pleural fluid. IMPRESSION: COPD changes with no acute process seen. The heart is mildly enlarged. Dictated by: Dictated on workstation # [id number]
[2016-09-22 09:00] LABS: BILIRUBIN,URINE NEGATIVE (NEGATIVE); KETONES,URINE NEGATIVE (NEGATIVE); LEUKOCYTE ESTERASE ,URINE NEGATIVE (NEGATIVE); NITRITE,URINE NEGATIVE (NEGATIVE); PH,URINE 6.5 (5-9); PROTEIN,URINE NEGATIVE (NEGATIVE); UROBILINOGEN,URINE NORMAL (NORMAL)
[2016-09-22 09:13] LABS: WBC,URINE RARE /HPF
[2016-09-22] MEDS: RT-ADVAIR HFA 115/21 MCG PER PUFF IH SCH ×2 (10:35→19:13)
[2016-09-22] MEDS: UMECLIDINIUM BROMIDE (INCRUSE ELLIPTA) 7'S IH SCH (10:41)
--- NOTE | 2016-09-22 11:36 | Progress Note (SOAP) ---
Subjective Subjective/Events-last exam Patient on NC this AM. States that she feels improved but still having shortness of breath with minimal activity. Tolerating PO diet. States that she has not had BM in about a week. Review of Systems Date Seen by Provider: Sep 22, 2016 Time Seen by Provider: 10:00 Pulmonary: Dyspnea, Cough Cardiovascular: No: Chest Pain, Palpitations Objective Exam Last Set of Vital Signs Vital Signs Date Time Temp Pulse Resp B/P (MAP) Pulse Ox O2 Delivery O2 Flow Rate FiO2 09/22/16 10:35 95 Nasal Cannula 1.50 09/22/16 08:33 97 09/22/16 08:00 97.1 105 15 126/90 Capillary Refill : Less Than 3 Seconds I&O Intake and Output 09/22/16 00:00 Intake Total 1736 ml Output Total 1400 ml Balance 336 ml Intake Oral 1736 ml Output Urine Total 1400 ml # Voids 4 General: Alert, Oriented X3, Cooperative, No Acute Distress Lungs: Other (+ diffuse wheezing and increased work of breathing with sitting up in bed) Heart: Regular Rate, No Murmurs Abdomen: Soft, Other (Mild ttp LLQ) Extremities: Normal Pulses, Other Results/Procedures Lab Laboratory Tests 09/21/16 14:47: Glucometer 188H 09/21/16 15:25: Blood Gas Puncture Site L RAD, Blood Gas Patient Temperature 99.1, Arterial Blood pH 7.32*L, Arterial Blood Partial Pressure CO2 54H, Arterial Blood Partial Pressure O2 97H, Arterial Blood HCO3 27, Arterial Blood Total CO2 28.7, Arterial Blood Oxygen Saturation 97, Arterial Blood Base Excess 1.6, [place] Test YES-POS, Blood Gas Ventilator Setting NO, Blood Gas Inspired Oxygen 30% 09/21/16 18:22: Glucometer 166H 09/21/16 18:30: Urine Opiates Screen POSITIVEH, Urine Oxycodone Screen NEGATIVE, Urine Methadone Screen NEGATIVE, Urine Propoxyphene Screen NEGATIVE, Urine Barbiturates Screen NEGATIVE, Ur Tricyclic Antidepressants Screen POSITIVEH, Urine Phencyclidine Screen NEGATIVE, Urine Amphetamines Screen NEGATIVE, Urine Methamphetamines Screen NEGATIVE, Urine Benzodiazepines Screen NEGATIVE, Urine Cocaine Screen NEGATIVE, Urine Cannabinoids Screen NEGATIVE 09/21/16 20:38: Glucometer 195H 09/22/16 01:13: Glucometer 160H 09/22/16 03:41: White Blood Count 19.1H, Red Blood Count 4.46, Hemoglobin 13.7, Hematocrit 42, Mean Corpuscular Volume 95, Mean Corpuscular Hemoglobin 31, Mean Corpuscular Hemoglobin Concent 32, Red Cell Distribution Width 14.4, Platelet Count 292, Mean Platelet Volume 10.0, Neutrophils (%) (Auto) 92H, Lymphocytes (%) (Auto) 5L , Monocytes (%) (Auto) 3, Eosinophils (%) (Auto) 0, Basophils (%) (Auto) 0, Neutrophils # (Auto) 17.6H, Lymphocytes # (Auto) 1.0, Monocytes # (Auto) 0.6, Eosinophils # (Auto) 0.0, Basophils # (Auto) 0.0, Sodium Level 138, Potassium Level 4.2, Chloride Level 104, Carbon Dioxide Level 22, Anion Gap 12, Blood Urea Nitrogen 14, Creatinine 0.96, Estimat Glomerular Filtration Rate > 60, BUN/ Creatinine Ratio 15, Glucose Level 160H, Hemoglobin A1c 5.4, Calcium Level 9.3, Phosphorus Level 3.2, Magnesium Level 1.9 09/22/16 04:05: Blood Gas Puncture Site L RAD, Blood Gas Patient Temperature 97.2, Arterial Blood pH 7.34*L, Arterial Blood Partial Pressure CO2 52H, Arterial Blood Partial Pressure O2 79, Arterial Blood HCO3 27, Arterial Blood Total CO2 29.1, Arterial Blood Oxygen Saturation 96, Arterial Blood Base Excess 2.1, Torsten Test YES-POS, Blood Gas Ventilator Setting NO, Blood Gas Inspired Oxygen 25% 09/22/16 06:05: B-Type Natriuretic Peptide 45.3 09/22/16 07:25: Lactic Acid Level 1.95 09/22/16 08:37: Urine Color YELLOW, Urine Clarity CLEAR, Urine pH 6.5, Urine Specific [place] 1.015L, Urine Protein NEGATIVE, Urine Glucose (UA) NEGATIVE, Urine Ketones NEGATIVE, Urine Nitrite NEGATIVE, Urine Bilirubin NEGATIVE, Urine Urobilinogen NORMAL, Urine Leukocyte Esterase NEGATIVE, Urine RBC (Auto) NEGATIVE, Urine RBC NONE, Urine WBC RARE, Urine Squamous Epithelial Cells 2-5, Urine Crystals NONE, Urine Bacteria NEGATIVE, Urine Casts NONE, Urine Mucus NEGATIVE, Urine Culture Indicated NO Radiology Date of Exam: 09/21/16 CHEST PA/LAT (2 VIEW) INDICATION: COPD COMPARISON: 09/20/16 FINDINGS: Frontal and lateral views of the chest demonstrate persistent but decreased atelectasis in both bases. There is no pneumothorax, effusion or new infiltrate. Heart is prominent without pulmonary edema. IMPRESSION: Persistent but decreasing atelectasis both bases. Date of Exam: 09/21/16 CT ANGIO CHEST W PROCEDURE: CT angiography of the chest with contrast. TECHNIQUE: Multiple contiguous axial images were obtained through the chest after uneventful bolus administration of intravenous contrast. Reconstructed CTA MIP acquisitions were also performed. INDICATION: Headache, shortness of breath, pulmonary embolism. COMPARISON: 08/31/14 FINDINGS: The heart is minimally enlarged. There is no pericardial effusion. Pulmonary arteries and aorta are grossly normal. No embolism or aortic dissection is identified. Centrilobular emphysema is seen in the mid and upper lung zones. There is some minimal consolidation in the lingula and left lung base. This is unchanged from the prior examination. The right lung is clear. There is no infiltrate. Osseous structures are stable. Visualized upper abdominal solid organs are intact. IMPRESSION: 1. Minimal cardiac enlargement without pulmonary edema. 2. No pulmonary embolism or aortic pathology. 3. COPD with stable atelectasis and/or consolidation in the left lung base and lingula. Assessment/Plan Assessment/Plan Plan 51 yo F admitted for acute respiratory failure likely 2/2 COPD Exacerbation Acute Respiratory Failure with Hypoxia - Dr Trivedi consulted today - CXR showed atelectasis w/o consolidation, CTA neg for PE - CE normal x1 - ABG showed respiratory acidosis, patient started on Bipap and weaned back to NC this AM - A/A nebs scheduled and PRN - Solumedrol decreased by Dr Trivedi today - Started on broad spectrum antibiotics today HTN: At Goal Consipation - Bowel meds started, encourage activity H/o DM - Will get A1c while inpatient H/o Drug Abuse Tobacco Use - Discussed the need for cessation Insomnia - Ambien PRN FEN: Cardiac diet DVT PPX: Lovenox 40 qD GFR >40 Dispo: Continue admission to ICU Diagnosis/Problems: Clinical Quality Measures DVT/VTE Risk/Contraindication: Risk Factor Score Per Nursin RFS Level Per Nursing on Admit: 3=High TIMOTHY LARIOS MD Sep 22, 2016 11:36
[2016-09-22] MEDS: methylPREDNISolone 40 MG/ML (Solu-MEDROL) VIAL IV SCH ×2 (12:30→18:07)
[2016-09-22] MEDS: PIPERACILLIN SODIUM/TAZOBACTAM 4.5 GM in NS (IVPB) 100 ML IV SCH ×2 (13:39→20:53)
[2016-09-22] MEDS ORDERED: BUPR150T14 PO (13:54)
[2016-09-22] MEDS ORDERED: IPRA3AMP IH (13:54)
[2016-09-22] MEDS ORDERED: GABA-488 PO (13:56)
[2016-09-22] MEDS ORDERED: ARIP5TAB12 PO (13:56)
[2016-09-22] MEDS ORDERED: DULA0.75 SQ (13:56)
[2016-09-22] MEDS ORDERED: MULT1TAB69 PO (14:05)
[2016-09-22] MEDS: ENOXAPARIN 40 MG/0.4 ML (LOVENOX) SYR SC SCH (16:20)
[2016-09-22] MEDS ORDERED: VANCOMYCIN 1,750 MG/NS 500 ML IVPB IV SCH ×2 (20:00)
[2016-09-22] MEDS: ACETAMINOPHEN 325 MG TABLET/CAPLET (TYLENOL) PO PRN (20:32)
[2016-09-22] MEDS ORDERED: ONDANSETRON 4 MG/2 ML (SDV) Z0FRAN IV PRN (21:30)
[2016-09-23] VITALS (16 sets, daily range): BP systolic 132–154; BP diastolic 56–106
[2016-09-23] MEDS: inSUlin ASPART (NovoLOG) 1 UNIT/0.01 ML (CHARGE PER UNIT) SC SCH ×6 (00:06→20:51)
[2016-09-23] MEDS: methylPREDNISolone 40 MG/ML (Solu-MEDROL) VIAL IV SCH ×5 (00:06→23:33)
[2016-09-23] MEDS: KETOROLAC 30 MG/ML VIAL IVP PRN ×3 (00:14→17:36)
[2016-09-23] MEDS: HYDROcodone/APAP 5 MG/325 MG (LORTAB) TAB PO PRN ×2 (01:49→19:15)
[2016-09-23] MEDS: RT-ALBUTEROL/IPRATROPIUM 3 ML (DUONEB) VIAL INH SCH ×6 (02:52→22:05)
[2016-09-23 04:10] LABS: BASOPHILS % (AUTO) 0 % (0-10); EOSINOPHILS % (AUTO) 0 % (0-10); LYMPHOCYTES # (AUTO) 0.7 X 10^3 (1.0-4.0); LYMPHOCYTES % (AUTO) 4 % (12-44); MEAN CORPUSCULAR HEMOGLOBIN 31 PG (25-34); MEAN CORPUSCULAR HGB CONC 32 G/DL (32-36); MEAN CORPUSCULAR VOLUME 95 FL (80-99); MEAN PLATELET VOLUME 9.7 FL (7.4-10.4); MONOCYTES # (AUTO) 0.9 X 10^3 (0.0-1.0); MONOCYTES % (AUTO) 5 % (0-12); NEUTROPHILS # (AUTO) 16.2 X 10^3 (1.8-7.8); NEUTROPHILS % (AUTO) 92 % (42-75); PLATELET COUNT 285 10^3/uL (130-400); RED BLOOD COUNT 4.43 10^6/uL (4.35-5.85); RED CELL DISTRIBUTION WIDTH 14.5 % (10.0-14.5); WHITE BLOOD COUNT 17.7 10^3/uL (4.3-11.0)
[2016-09-23] MEDS: PIPERACILLIN SODIUM/TAZOBACTAM 4.5 GM in NS (IVPB) 100 ML IV SCH ×3 (04:16→20:50)
[2016-09-23 04:38] LABS: CALCIUM 9.1 MG/DL (8.5-10.1); CREATININE SERUM 1.06 MG/DL (0.60-1.30); MAGNESIUM 1.9 MG/DL (1.8-2.4); PHOSPHORUS 2.9 MG/DL (2.3-4.7); POTASSIUM 4.6 MMOL/L (3.6-5.0)
[2016-09-23] MEDS: MAGNESIUM 1 GM/100 ML IVPB 100 ML IV SCH (04:45)
[2016-09-23] MEDS: POTASSIUM CL 10MEQ/50ML IVPB 50 ML IV SCH (04:45)
[2016-09-23] MEDS: KCL 20 MEQ TAB (K-DUR) PO SCH (04:45)
[2016-09-23] MEDS: ALPRAZolam 0.5 MG (XANAX) TAB PO PRN ×2 (04:46→16:25)
[2016-09-23] MEDS: ACETAMINOPHEN 325 MG TABLET/CAPLET (TYLENOL) PO PRN (04:46)
[2016-09-23 05:02] LABS: LYMPHOCYTES % (MANUAL) 6 %; NEUTROPHILS % (MANUAL) 90 %
[2016-09-23] MEDS: UMECLIDINIUM BROMIDE (INCRUSE ELLIPTA) 7'S IH SCH (06:57)
[2016-09-23] MEDS ORDERED: TROUGH ORDER-PHARMACY XX ONE (07:00)
[2016-09-23] MEDS: ADVAIR HFA 115/21 MCG INHALER 8 GM IH SCH ×2 (07:02→18:45)
--- NOTE | 2016-09-23 08:05 | Pulmonary Progress Note ---
Subjective Time Seen by Provider: 08:11 Subjective/Events-last exam Pt feels improved. No complications noted. Exam Exam Vital Signs Date Time Temp Pulse Resp B/P (MAP) Pulse Ox O2 Delivery O2 Flow Rate FiO2 09/23/16 06:57 93 Nasal Cannula 2.00 09/23/16 06:00 118 17 132/106 96 NIV Bilevel 25.00 09/23/16 05:00 113 13 134/104 94 NIV Bilevel 25.00 09/23/16 04:00 104 13 142/104 93 NIV Bilevel 25.00 09/23/16 03:00 113 39 133/93 94 NIV Bilevel 25.00 09/23/16 02:53 104 13 95 25.00 09/23/16 02:00 106 15 142/92 95 NIV Bilevel 25.00 09/23/16 01:00 111 27 142/95 94 NIV Bilevel 25.00 09/23/16 01:00 104 09/23/16 00:00 107 17 134/99 94 NIV Bilevel 25.00 09/22/16 23:58 97.0 NIV Bilevel 25.00 09/22/16 23:00 107 16 114/78 94 Nasal Cannula 2.00 09/22/16 22:23 103 30 95 25.00 09/22/16 22:00 111 16 148/105 91 Nasal Cannula 2.00 09/22/16 21:00 109 19 139/107 93 Nasal Cannula 2.00 09/22/16 21:00 94 Nasal Cannula 2.00 09/22/16 20:00 111 20 127/78 92 Nasal Cannula 2.00 09/22/16 19:54 98.9 09/22/16 19:13 98 Nasal Cannula 1.00 09/22/16 19:00 108 09/22/16 19:00 108 14 133/92 98 Nasal Cannula 2.00 09/22/16 18:00 112 24 149/97 Nasal Cannula 2.00 09/22/16 17:00 105 22 128/76 96 Nasal Cannula 2.00 09/22/16 16:00 109 18 121/77 93 Nasal Cannula 2.00 09/22/16 15:55 92 Nasal Cannula 2.00 09/22/16 15:54 98.0 105 17 108/64 92 Nasal Cannula 2.00 09/22/16 15:12 95 Nasal Cannula 1.00 09/22/16 15:00 105 21 108/64 95 NIV Bilevel 25.00 09/22/16 14:00 109 18 149/98 96 NIV Bilevel 25.00 09/22/16 13:00 110 14 149/97 98 NIV Bilevel 25.00 09/22/16 13:00 109 09/22/16 12:00 97 NIV Bilevel 2.00 25 09/22/16 12:00 97.8 110 24 126/90 97 NIV Bilevel 25.00 09/22/16 11:00 108 20 129/87 97 Nasal Cannula 2.00 09/22/16 10:35 95 Nasal Cannula 1.50 09/22/16 10:00 23 129/87 Nasal Cannula 2.00 09/22/16 09:09 92 Nasal Cannula 2.00 09/22/16 09:00 Nasal Cannula 2.00 09/22/16 09:00 110 33 115/71 89 Nasal Cannula 2.00 09/22/16 08:33 Nasal Cannula 2.00 97 09/22/16 08:00 97.1 105 15 126/90 98 NIV Bilevel 25.00 I & O 09/23/16 07:00 Intake Total 3975 ml Output Total 800 ml Balance 3175 ml General Appearance: Mild Distress Neck: Full Range of Motion, Normal Inspection, Non Tender Respiratory: Accessory Muscle Use, Decreased Breath Sounds, Expiration, Wheezing Cardiovascular: No Gallop, No JVD, No Murmur, Tachycardia Capillary Refill: Less Than 3 Seconds Gastrointestinal: normal bowel sounds, soft, no organomegaly, other (Mild ttp LLQ) Extremity: Normal Capillary Refill, No Calf Tenderness, No Pedal Edema Neurologic/Psychiatric: Alert, Oriented x3 Skin: Normal Color, Warm/Dry Lymphatic: No Adenopathy Results Lab Laboratory Tests 09/22/16 03:41 09/23/16 04:01 Assessment/Plan Assessment/Plan Acute respiratory failure requiring noninvasive ventilation - Worsening transferred to ICU from 4th floor last night -trial pt off BiPAP after SVN -Continue steroids but decrease to 40 IV Q6 Acute on chronic respiratory failure -Pt will benefit from home vent to mask upon discharge. -Levaquin Pneumonia with sepsis -Farmer culture - if not done yet - vanco and zosyn Atelectasis Constipation -resolved Tobacco use -education 233 Transfer to floor with tele Clinical Quality Measures DVT/VTE Risk/Contraindication: Risk Factor Score Per Nursin RFS Level Per Nursing on Admit: 3=High WILLIAMS THOMAS DO Sep 23, 2016 08:04
--- NOTE | 2016-09-23 09:18 | Diagnostic Imaging Report ---
INDICATION: Dyspnea. Frontal chest obtained at 4:38 a.m. FINDINGS: There is cardiomegaly. There is no focal infiltrate or pneumothorax or pleural fluid. IMPRESSION: Cardiomegaly. No focal infiltrate or pneumothorax or pleural fluid. Dictated by: Dictated on workstation # [id number]
[2016-09-23] MEDS: DULoxetine 30 MG (CYMBALTA) CAP PO SCH ×2 (09:35→20:51)
[2016-09-23] MEDS: NICOTINE 14 MG (NICODERM) PATCH TD SCH (09:36)
[2016-09-23] MEDS: NS IV 1000 ML 1,000 ML IV SCH (09:49)
[2016-09-23] MEDS: DOCUSATE SODIUM 100 MG (COLACE) CAP PO SCH ×2 (09:49→20:51)
[2016-09-23] MEDS: PATCH REMOVAL TP SCH (09:49)
[2016-09-23] MEDS: LACTULOSE SYRUP 10GM/15ML (ENULOSE) 30ML UDC PO SCH ×2 (09:49→20:51)
[2016-09-23] MEDS ORDERED: fentaNYL INJECTION 100 MCG/2 ML AMP IVP NR (10:30)
[2016-09-23] MEDS: VANCOMYCIN 1500 MG/NS 500 ML IVPB IV SCH ×4 (11:42→23:52)
[2016-09-23] MEDS: ENOXAPARIN 40 MG/0.4 ML (LOVENOX) SYR SC SCH (16:15)
[2016-09-23] MEDS ORDERED: RT-ADVAIR HFA 115/21 MCG PER PUFF IH ONE (18:34)
--- NOTE | 2016-09-23 19:38 | Progress Note (SOAP) ---
Subjective Subjective/Events-last exam Patient states that she feels much better this AM. Still having shortness of breath with minimal activity. Complains of headache this AM. Tolerating PO diet. Has not really been up ambulating. Review of Systems Date Seen by Provider: Sep 23, 2016 Time Seen by Provider: 10:15 Pulmonary: Dyspnea, Cough Cardiovascular: No: Chest Pain, Palpitations Gastrointestinal: Constipation, No: Abdominal Pain, Nausea, Vomiting Neurological: Other (headache, denies blurry vision) Objective Exam Last Set of Vital Signs Vital Signs Date Time Temp Pulse Resp B/P (MAP) Pulse Ox O2 Delivery O2 Flow Rate FiO2 09/23/16 19:15 98.5 112 16 138/56 93 09/23/16 18:48 Nasal Cannula 2.00 09/23/16 09:00 97 Capillary Refill : Less Than 3 Seconds I&O Intake and Output 09/23/16 00:00 Intake Total 4175 ml Output Total 1300 ml Balance 2875 ml Intake Oral 3550 ml IV Total 625 ml Output Urine Total 1300 ml # Voids 9 # Bowel Movements 1 General: Alert, Oriented X3, Cooperative, No Acute Distress HEENT: Mucous Memb Moist/[place] Lungs: Normal Air Movement, Other (diffuse inspiratory and expiratory wheezing , mild increased work of breath, no accessory muscle use) Heart: Regular Rate, No Murmurs Abdomen: Normal Bowel Sounds, Soft, No Tenderness Extremities: No Edema, No Tenderness/Swelling Psych/Mental Status: Mental Status NL, Mood NL Results/Procedures Lab Laboratory Tests 09/22/16 19:57: Glucometer 240H 09/23/16 00:03: Glucometer 212H 09/23/16 04:01: White Blood Count 17.7H, Red Blood Count 4.43, Hemoglobin 13.5, Hematocrit 42, Mean Corpuscular Volume 95, Mean Corpuscular Hemoglobin 31, Mean Corpuscular Hemoglobin Concent 32, Red Cell Distribution Width 14.5, Platelet Count 285, Mean Platelet Volume 9.7, Neutrophils (%) (Auto) 92H, Lymphocytes (%) (Auto) 4L , Monocytes (%) (Auto) 5, Eosinophils (%) (Auto) 0, Basophils (%) (Auto) 0, Neutrophils # (Auto) 16.2H, Lymphocytes # (Auto) 0.7L, Monocytes # (Auto) 0.9, Eosinophils # (Auto) 0.0, Basophils # (Auto) 0.0, Neutrophils % (Manual) 90, Lymphocytes % (Manual) 6, Monocytes % (Manual) 4, Toxic Granulation 1+, Blood Morphology Comment NORMAL, Sodium Level 137, Potassium Level 4.6, Chloride Level 102, Carbon Dioxide Level 26, Anion Gap 9, Blood Urea Nitrogen 24H, Creatinine 1.06, Estimat Glomerular Filtration Rate 54, BUN/Creatinine Ratio 23 , Glucose Level 211H, Calcium Level 9.1, Phosphorus Level 2.9, Magnesium Level 1.9 09/23/16 07:55: Vancomycin Level Trough 21.9H 09/23/16 11:20: Glucometer 256H 09/23/16 16:02: Glucometer 279H Microbiology 09/22/16 Blood Culture - Preliminary, Resulted No growth 09/22/16 Gram Stain - Final, Resulted 09/22/16 Sputum Culture - Preliminary, Resulted No growth Radiology Date of Exam: 09/21/16 CHEST PA/LAT (2 VIEW) INDICATION: COPD COMPARISON: 09/20/16 FINDINGS: Frontal and lateral views of the chest demonstrate persistent but decreased atelectasis in both bases. There is no pneumothorax, effusion or new infiltrate. Heart is prominent without pulmonary edema. IMPRESSION: Persistent but decreasing atelectasis both bases. Date of Exam: 09/21/16 CT ANGIO CHEST W PROCEDURE: CT angiography of the chest with contrast. TECHNIQUE: Multiple contiguous axial images were obtained through the chest after uneventful bolus administration of intravenous contrast. Reconstructed CTA MIP acquisitions were also performed. INDICATION: Headache, shortness of breath, pulmonary embolism. COMPARISON: 08/31/14 FINDINGS: The heart is minimally enlarged. There is no pericardial effusion. Pulmonary arteries and aorta are grossly normal. No embolism or aortic dissection is identified. Centrilobular emphysema is seen in the mid and upper lung zones. There is some minimal consolidation in the lingula and left lung base. This is unchanged from the prior examination. The right lung is clear. There is no infiltrate. Osseous structures are stable. Visualized upper abdominal solid organs are intact. IMPRESSION: 1. Minimal cardiac enlargement without pulmonary edema. 2. No pulmonary embolism or aortic pathology. 3. COPD with stable atelectasis and/or consolidation in the left lung base and lingula. Assessment/Plan Assessment/Plan Plan 51 yo F admitted for acute respiratory failure likely 2/2 COPD Exacerbation Acute Respiratory Failure with Hypoxia - Dr Trivedi consulted today - CXR showed atelectasis w/o consolidation, CTA neg for PE - CE normal x1 - A/A nebs scheduled and PRN - Continue IV steroids and will transition to PO prior to discharge, will need prolonged taper - Continue Vanc until AM, continue zosyn x 5 days HTN: At Goal Consipation - Bowel meds started, encourage activity H/o DM - A1c 5.4 H/o Drug Abuse Tobacco Use - Discussed the need for cessation Insomnia - Ambien PRN Mamadou TANG - Restarted home PPX medications, limit narcotic use due to rebound TANG FEN: Cardiac diet DVT PPX: Lovenox 40 qD GFR >40 Dispo: Ok to transfer to floor today Diagnosis/Problems: Clinical Quality Measures DVT/VTE Risk/Contraindication: Risk Factor Score Per Nursin RFS Level Per Nursing on Admit: 3=High TIMOTHY LARIOS MD Sep 23, 2016 19:38
[2016-09-23] MEDS: toPIRamate 100 MG (TOPAMAX) TAB PO SCH (20:51)
[2016-09-23] MEDS: AMITRIPTYLINE 150 MG (ELAVIL) TABLET PO SCH (20:51)
[2016-09-23] MEDS: ZOLPIDEM 5 MG (AMBIEN) TAB PO SCH (20:51)
[2016-09-24] MEDS: RT-ALBUTEROL/IPRATROPIUM 3 ML (DUONEB) VIAL INH SCH ×6 (02:14→22:11)
[2016-09-24 04:00] VITALS: BP 162/97
[2016-09-24] MEDS: ALPRAZolam 0.5 MG (XANAX) TAB PO PRN ×2 (04:08→11:05)
[2016-09-24] MEDS: NS IV 1000 ML 1,000 ML IV SCH ×2 (04:08→12:45)
[2016-09-24] MEDS: PIPERACILLIN SODIUM/TAZOBACTAM 4.5 GM in NS (IVPB) 100 ML IV SCH ×3 (04:09→21:23)
[2016-09-24 04:57] LABS: BASOPHILS % (AUTO) 0 % (0-10); EOSINOPHILS % (AUTO) 0 % (0-10); LYMPHOCYTES # (AUTO) 0.6 X 10^3 (1.0-4.0); LYMPHOCYTES % (AUTO) 4 % (12-44); MEAN CORPUSCULAR HEMOGLOBIN 30 PG (25-34); MEAN CORPUSCULAR HGB CONC 32 G/DL (32-36); MEAN CORPUSCULAR VOLUME 96 FL (80-99); MEAN PLATELET VOLUME 9.9 FL (7.4-10.4); MONOCYTES # (AUTO) 0.6 X 10^3 (0.0-1.0); MONOCYTES % (AUTO) 4 % (0-12); NEUTROPHILS # (AUTO) 13.7 X 10^3 (1.8-7.8); NEUTROPHILS % (AUTO) 92 % (42-75); PLATELET COUNT 256 10^3/uL (130-400); RED BLOOD COUNT 4.15 10^6/uL (4.35-5.85); RED CELL DISTRIBUTION WIDTH 14.3 % (10.0-14.5)
[2016-09-24] MEDS: methylPREDNISolone 40 MG/ML (Solu-MEDROL) VIAL IV SCH ×3 (05:16→18:14)
[2016-09-24] MEDS: inSUlin ASPART (NovoLOG) 1 UNIT/0.01 ML (CHARGE PER UNIT) SC SCH ×4 (05:16→21:25)
[2016-09-24 05:21] LABS: CALCIUM 8.8 MG/DL (8.5-10.1); CREATININE SERUM 1.01 MG/DL (0.60-1.30); POTASSIUM 4.6 MMOL/L (3.6-5.0)
[2016-09-24] MEDS: UMECLIDINIUM BROMIDE (INCRUSE ELLIPTA) 7'S IH SCH (06:34)
[2016-09-24] MEDS: ADVAIR HFA 115/21 MCG INHALER 8 GM IH SCH ×2 (06:41→19:08)
--- NOTE | 2016-09-24 07:22 | Pulmonary Progress Note ---
Subjective Time Seen by Provider: 07:22 Subjective/Events-last exam PT feels slightly improved. Exam Exam Vital Signs Date Time Temp Pulse Resp B/P (MAP) Pulse Ox O2 Delivery O2 Flow Rate FiO2 09/24/16 06:42 93 Nasal Cannula 2.00 09/24/16 04:00 98.3 106 20 162/97 93 Nasal Cannula 2.00 2.00 09/24/16 02:15 93 Nasal Cannula 2.00 09/24/16 01:00 102 09/23/16 23:40 99.1 112 18 154/97 92 Room Air 09/23/16 22:07 117 26 94 25.00 09/23/16 21:00 Nasal Cannula 2.00 09/23/16 19:15 98.5 112 16 138/56 93 09/23/16 19:00 112 09/23/16 18:48 Nasal Cannula 2.00 09/23/16 18:45 95 Nasal Cannula 2.00 09/23/16 16:02 97.6 110 18 146/86 94 09/23/16 14:13 91 09/23/16 14:13 91 Nasal Cannula 2.00 09/23/16 12:00 98.5 111 20 154/98 95 Nasal Cannula 2.00 09/23/16 10:30 98.9 113 24 149/92 95 Nasal Cannula 2.00 09/23/16 09:44 98.5 108 18 138/97 95 Nasal Cannula 2.00 09/23/16 09:00 94 Nasal Cannula 2.00 09/23/16 09:00 95 Nasal Cannula 2.00 97 09/23/16 08:00 112 25 150/105 93 Nasal Cannula 2.00 I & O 09/24/16 07:00 Intake Total 5825 ml Output Total 2350 ml Balance 3475 ml General Appearance: Mild Distress Neck: Full Range of Motion, Normal Inspection, Non Tender Respiratory: Accessory Muscle Use, Decreased Breath Sounds, Expiration, Wheezing Cardiovascular: No Gallop, No JVD, No Murmur, Tachycardia Capillary Refill: Less Than 3 Seconds Gastrointestinal: normal bowel sounds, soft, no organomegaly, other (Mild ttp LLQ) Extremity: Normal Capillary Refill, No Calf Tenderness, No Pedal Edema Neurologic/Psychiatric: Alert, Oriented x3 Skin: Normal Color, Warm/Dry Lymphatic: No Adenopathy Results Lab Laboratory Tests 09/23/16 04:01 7/19/17 04:37 Assessment/Plan Assessment/Plan Acute respiratory failure requiring noninvasive ventilation - Worsening transferred to ICU from 4th floor last night -BiPAP PRN -Solumedrol 40 IV Q6 Acute on chronic respiratory failure -Pt will benefit from home vent to mask upon discharge. -Levaquin Pneumonia with sepsis -Farmer culture - if not done yet - vanco and zosyn Atelectasis Constipation -resolved Tobacco use -education 232 Clinical Quality Measures DVT/VTE Risk/Contraindication: Risk Factor Score Per Nursin RFS Level Per Nursing on Admit: 3=High WILLIAMS THOMAS DO Sep 24, 2016 07:22
[2016-09-24 07:57] VITALS: BP 131/75
[2016-09-24] MEDS: DULoxetine 30 MG (CYMBALTA) CAP PO SCH ×2 (08:44→21:23)
[2016-09-24] MEDS: LACTULOSE SYRUP 10GM/15ML (ENULOSE) 30ML UDC PO SCH (08:44)
[2016-09-24] MEDS: DOCUSATE SODIUM 100 MG (COLACE) CAP PO SCH ×2 (08:44→21:24)
[2016-09-24] MEDS: toPIRamate 100 MG (TOPAMAX) TAB PO SCH ×2 (08:44→21:23)
[2016-09-24] MEDS: PATCH REMOVAL TP SCH (08:45)
[2016-09-24] MEDS: NICOTINE 14 MG (NICODERM) PATCH TD SCH (08:45)
[2016-09-24] MEDS: KETOROLAC 30 MG/ML VIAL IVP PRN (08:45)
--- NOTE | 2016-09-24 08:55 | Diagnostic Imaging Report ---
INDICATION: Dyspnea. COMPARISON: 09/23/2016. FINDINGS: Flattening of the diaphragms and air trapping are unchanged. The heart size is within normal limits. No vascular congestion. No edema, pneumonia, effusion, or pneumothorax. IMPRESSION: Clear hyperexpanded lungs; otherwise, negative. Dictated by: Dictated on workstation # [id number]
[2016-09-24] MEDS ORDERED: TROUGH ORDER-PHARMACY XX ONE (10:00)
[2016-09-24 12:00] VITALS: BP 143/92
[2016-09-24] MEDS ORDERED: diphenhydrAMINE 25 MG TAB (BENADRYL) PO PRN (12:00)
[2016-09-24] MEDS: VANCOMYCIN 1500 MG/NS 500 ML IVPB IV SCH ×2 (13:21)
[2016-09-24 16:52] VITALS: BP 144/87
[2016-09-24] MEDS: ENOXAPARIN 40 MG/0.4 ML (LOVENOX) SYR SC SCH (18:14)
--- NOTE | 2016-09-24 19:13 | Progress Note (SOAP) ---
Subjective Subjective/Events-last exam Patient states that she feels better this AM and is wanting to go home. Still requiring oxygen this AM. Continues to have shortness of breath with minimal activity. + BM in the last 24 hrs. Review of Systems Date Seen by Provider: Sep 24, 2016 Time Seen by Provider: 10:00 General: No Chills, Fatigue Pulmonary: Dyspnea, Cough Cardiovascular: No: Chest Pain, Palpitations Gastrointestinal: No: Abdominal Pain, Constipation, Nausea, Vomiting Genitourinary: No Dysuria, No Incontinence Objective Exam Last Set of Vital Signs Vital Signs Date Time Temp Pulse Resp B/P (MAP) Pulse Ox O2 Delivery O2 Flow Rate FiO2 09/24/16 16:52 99.0 104 22 144/87 94 Nasal Cannula 2.00 09/23/16 09:00 97 Capillary Refill : Less Than 3 Seconds I&O Intake and Output 09/24/16 00:00 Intake Total 3765 ml Output Total 1550 ml Balance 2215 ml Intake Oral 3150 ml IV Total 615 ml Output Urine Total 1550 ml # Voids 5 # Bowel Movements 8 General: Alert, Oriented X3, Cooperative, Mild Distress, Other (sitting up to the side of the bed) HEENT: Mucous Memb Moist/[place] Lungs: Other (diffuse wheezing and increase work of breathing) Heart: Regular Rate, No Murmurs Abdomen: Normal Bowel Sounds, Soft, No Tenderness Extremities: No Edema, No Tenderness/Swelling Neuro: Normal Speech, Strength at 5/5 X4 Ext, Sensation Intact, Cranial Nerves 3-12 NL Psych/Mental Status: Mental Status NL, Other (+ anxiety) Results/Procedures Lab Laboratory Tests 09/23/16 20:25: Glucometer 325H 09/24/16 04:37: White Blood Count 15.0H, Red Blood Count 4.15L, Hemoglobin 12.6, Hematocrit 40, Mean Corpuscular Volume 96, Mean Corpuscular Hemoglobin 30, Mean Corpuscular Hemoglobin Concent 32, Red Cell Distribution Width 14.3, Platelet Count 256, Mean Platelet Volume 9.9, Neutrophils (%) (Auto) 92H, Lymphocytes (%) (Auto) 4L , Monocytes (%) (Auto) 4, Eosinophils (%) (Auto) 0, Basophils (%) (Auto) 0, Neutrophils # (Auto) 13.7H, Lymphocytes # (Auto) 0.6L, Monocytes # (Auto) 0.6, Eosinophils # (Auto) 0.0, Basophils # (Auto) 0.0, Sodium Level 139, Potassium Level 4.6, Chloride Level 106, Carbon Dioxide Level 25, Anion Gap 8, Blood Urea Nitrogen 22H, Creatinine 1.01, Estimat Glomerular Filtration Rate 58, BUN/ Creatinine Ratio 22, Glucose Level 317H, Calcium Level 8.8 09/24/16 04:41: Glucometer 309H 09/24/16 10:35: Vancomycin Level Trough 19.8 09/24/16 11:10: Glucometer 332H 09/24/16 16:50: Glucometer 213H Microbiology 09/22/16 Blood Culture - Preliminary, Resulted No growth 09/22/16 Gram Stain - Final, Resulted 09/22/16 Sputum Culture - Preliminary, Resulted Presumptive Lilia Albicans Yeast Species Radiology Date of Exam: 09/21/16 CHEST PA/LAT (2 VIEW) INDICATION: COPD COMPARISON: 09/20/16 FINDINGS: Frontal and lateral views of the chest demonstrate persistent but decreased atelectasis in both bases. There is no pneumothorax, effusion or new infiltrate. Heart is prominent without pulmonary edema. IMPRESSION: Persistent but decreasing atelectasis both bases. Date of Exam: 09/21/16 CT ANGIO CHEST W PROCEDURE: CT angiography of the chest with contrast. TECHNIQUE: Multiple contiguous axial images were obtained through the chest after uneventful bolus administration of intravenous contrast. Reconstructed CTA MIP acquisitions were also performed. INDICATION: Headache, shortness of breath, pulmonary embolism. COMPARISON: 08/31/14 FINDINGS: The heart is minimally enlarged. There is no pericardial effusion. Pulmonary arteries and aorta are grossly normal. No embolism or aortic dissection is identified. Centrilobular emphysema is seen in the mid and upper lung zones. There is some minimal consolidation in the lingula and left lung base. This is unchanged from the prior examination. The right lung is clear. There is no infiltrate. Osseous structures are stable. Visualized upper abdominal solid organs are intact. IMPRESSION: 1. Minimal cardiac enlargement without pulmonary edema. 2. No pulmonary embolism or aortic pathology. 3. COPD with stable atelectasis and/or consolidation in the left lung base and lingula. Assessment/Plan Assessment/Plan Plan 51 yo F admitted for acute respiratory failure likely 2/2 COPD Exacerbation Acute Respiratory Failure with Hypoxia - Dr Trivedi consulted and following patient - CXR showed atelectasis w/o consolidation, CTA neg for PE - CE normal x1 - A/A nebs scheduled and PRN - Continue IV steroids and will transition to PO prior to discharge, will need prolonged taper - D/luke Vanc today, Will continue Zosyn - Oxygen qualification done today HTN: At Goal Consipation: Resolved - Bowel meds started, encourage activity H/o DM - A1c 5.4 H/o Drug Abuse Tobacco Use - Discussed the need for cessation Insomnia - Ambien PRN Mamadou TANG - Restarted home PPX medications, limit narcotic use due to rebound TANG FEN: Cardiac diet DVT PPX: Lovenox 40 qD GFR >40 Dispo: Plan to d/c home tomorrow with home oxygen supplementation Diagnosis/Problems: Clinical Quality Measures DVT/VTE Risk/Contraindication: Risk Factor Score Per Nursin RFS Level Per Nursing on Admit: 3=High TIMOTHY LARIOS MD Sep 24, 2016 19:13
[2016-09-24 20:59] VITALS: BP 165/97
[2016-09-24] MEDS: AMITRIPTYLINE 150 MG (ELAVIL) TABLET PO SCH (21:23)
[2016-09-24] MEDS: HYDROcodone/APAP 5 MG/325 MG (LORTAB) TAB PO PRN (21:24)
[2016-09-24] MEDS: ZOLPIDEM 5 MG (AMBIEN) TAB PO SCH (21:24)
[2016-09-25] VITALS: BP 144/96
[2016-09-25] MEDS ORDERED: VANCOMYCIN 1250 MG/NS 250 ML IVPB IV SCH ×2
[2016-09-25] MEDS: methylPREDNISolone 40 MG/ML (Solu-MEDROL) VIAL IV SCH ×3 (00:13→11:39)
[2016-09-25] MEDS: RT-ALBUTEROL/IPRATROPIUM 3 ML (DUONEB) VIAL INH SCH ×4 (02:24→15:15)
[2016-09-25] MEDS: ALPRAZolam 0.5 MG (XANAX) TAB PO PRN ×2 (03:57→10:19)
[2016-09-25] MEDS: HYDROcodone/APAP 5 MG/325 MG (LORTAB) TAB PO PRN (03:57)
[2016-09-25 04:25] VITALS: BP 150/83
[2016-09-25 06:03] LABS: CALCIUM 8.6 MG/DL (8.5-10.1); CREATININE SERUM 0.98 MG/DL (0.60-1.30); POTASSIUM 4.6 MMOL/L (3.6-5.0)
[2016-09-25] MEDS: PIPERACILLIN SODIUM/TAZOBACTAM 4.5 GM in NS (IVPB) 100 ML IV SCH ×2 (06:03→13:05)
[2016-09-25] MEDS: inSUlin ASPART (NovoLOG) 1 UNIT/0.01 ML (CHARGE PER UNIT) SC SCH ×2 (06:04→11:40)
[2016-09-25] MEDS: ADVAIR HFA 115/21 MCG INHALER 8 GM IH SCH (07:20)
[2016-09-25] MEDS: UMECLIDINIUM BROMIDE (INCRUSE ELLIPTA) 7'S IH SCH (07:23)
[2016-09-25 07:37] VITALS: BP 134/94
--- NOTE | 2016-09-25 07:53 | Diagnostic Imaging Report ---
INDICATION: Dyspnea. COMPARISON: 09/24/16. FINDINGS: Bibasilar hazy opacities have not significantly changed. No pleural effusion or pneumothorax. Stable borderline cardiomegaly. Normal pulmonary vasculature. IMPRESSION: Unchanged bibasilar hazy opacities which are likely due to summation shadow of patient's body habitus as well as subsegmental atelectasis. Dictated by: Dictated on workstation # [id number]
[2016-09-25] MEDS: DOCUSATE SODIUM 100 MG (COLACE) CAP PO SCH (08:30)
[2016-09-25] MEDS: PATCH REMOVAL TP SCH (08:31)
[2016-09-25] MEDS: DULoxetine 30 MG (CYMBALTA) CAP PO SCH (08:31)
[2016-09-25] MEDS: toPIRamate 100 MG (TOPAMAX) TAB PO SCH (08:31)
[2016-09-25] MEDS: NICOTINE 14 MG (NICODERM) PATCH TD SCH (08:31)
[2016-09-25 08:54] LABS: BASOPHILS % (AUTO) 0 % (0-10); EOSINOPHILS % (AUTO) 0 % (0-10); LYMPHOCYTES # (AUTO) 0.7 X 10^3 (1.0-4.0); LYMPHOCYTES % (AUTO) 5 % (12-44); MEAN CORPUSCULAR HEMOGLOBIN 30 PG (25-34); MEAN CORPUSCULAR HGB CONC 32 G/DL (32-36); MEAN CORPUSCULAR VOLUME 96 FL (80-99); MONOCYTES # (AUTO) 0.6 X 10^3 (0.0-1.0); MONOCYTES % (AUTO) 4 % (0-12); NEUTROPHILS # (AUTO) 13.6 X 10^3 (1.8-7.8); NEUTROPHILS % (AUTO) 91 % (42-75); PLATELET COUNT 258 10^3/uL (130-400); RED BLOOD COUNT 4.29 10^6/uL (4.35-5.85); RED CELL DISTRIBUTION WIDTH 14.1 % (10.0-14.5)
[2016-09-25] MEDS ORDERED: FUROSEMIDE 40 MG/4 ML INJ (LASIX) ONE (10:18)
[2016-09-25] MEDS ORDERED: ALPR0.5T7 PO (10:24)
[2016-09-25] MEDS ORDERED: FUROSEMIDE 40 MG/4 ML INJ (LASIX) IVP NR ×2 (10:30)
[2016-09-25] MEDS ORDERED: AZIT250T5 PO (11:18)
[2016-09-25] MEDS ORDERED: PRD20T PO (11:18)
--- NOTE | 2016-09-25 11:25 | Discharge Instructions ---
Discharge [facility] Discharge Medications New, Converted or Re-Newed RX: Transmitted to Pharmacy New Medications: Azithromycin (Azithromycin) 250 Mg Tablet 250 MG PO UD, #6 TAB TAKE 2 TABLETS ON DAY ONE THEN TAKE 1 TABLET DAILY FOR FOUR MORE DAYS Prednisone (Prednisone) 20 Mg Tab 20 MG PO DAILY, #32 TAB 2 tabs BID x 3 days 2 tabs in AM and 1 tab in PM x 3 days 1 tab BID x 3 days 1 tab daily x 3 days 1/2 tab daily x 4 days Alprazolam (Alprazolam) 0.5 Mg Tablet 0.5 MG PO BID PRN for ANXIETY, #14 TAB Continued Medications: Albuterol Sulfate (Ventolin Hfa) 18 Gm Hfa.aer.ad 2 PUFF IH Q4H PRN for SHORTNESS OF BREATH, INHALER Amitriptyline HCl (Amitriptyline HCl) 150 Mg Tablet 150 MG PO HS, TAB Aripiprazole (Abilify) 5 Mg Tablet 5 MG PO DAILY, TAB Cetirizine HCl (Zyrtec) 10 Mg Tablet 10 MG PO DAILY, TAB Dulaglutide (Trulicity) 0.75 Mg/0.5 Ml Pen.injctr 0.75 MG SQ Fr, VIAL Duloxetine HCl (Cymbalta) 60 Mg Capsule.dr 60 MG PO BID, CAP Fluticasone/Salmeterol (Advair 250-50 Diskus) 1 Each Blst.w.dev 1 PUFF IH BID, INHALER Gabapentin (Gabapentin) 300 Mg Capsule 300 MG PO TID, CAP Ipratropium/Albuterol Sulfate (Iprat-Albut 0.5-3(2.5) mg/3 ml) 3 Ml Ampul.neb 3 ML IH QID PRN for SHORTNESS OF BREATH Multivitamin (Multivitamins) 1 Each Tablet 1 TAB PO DAILY, TAB Olanzapine (Olanzapine) 15 Mg Tablet 15 MG PO HS, TAB Tiotropium [place] (Spiriva) 1 Inh Aerp 1 CAP IH DAILY, INHALER Topiramate (Topiramate) 100 Mg Tablet 100 MG PO BID, TAB Patient Instructions Goal/Follow Up Appt: You have a follow up with Dr Burrows on ThursdaySeptember 30 @ 1020 AM You will then follow up with your PCP Alondra Patient Instructions: - Make sure to complete your antibiotics and steroids - Continue to your inspiratory spirometry at least 10 times per day Return to The Hospital For: Increasing shortness of breath after treatment Chest pain Activity & Diet Discharge Diet: No Restrictions Activity as Tolerated: Yes Copy Copies To 1: [facility] TIMOTHY Escalante MD Sep 25, 2016 11:25
[2016-09-25 12:00] VITALS: BP 143/98
[2016-09-25 15:55] VITALS: BP 143/98
--- NOTE | 2016-09-25 19:46 | Discharge Summary ---
Diagnosis/Chief Complaint Date of Admission Sep 21, 2016 at 11:00 Date of Discharge Sep 25, 2016 at 15:55 Admission Diagnosis Admission Diagnosis Acute Respiratory Failure with Hypoxia COPD Exacerbation HTN Constipation Migraine TANG Tobacco use Discharge Diagnosis Acute Respiratory Failure with Hypoxia: Patient was admitted with hypoxia and moderate respiratory distress. Patient progressively got worse and in AM required Bipap to maintain saturations. Dr Trivedi with Pulmonology was consulted during this admission. Patient was covered with antibiotics but did not have CXR signs consistent with PNA. CTA was done to rule out PE as patient had recent h/o car ride > 2 hrs. Cardiac workup was also negative. Patient was placed on IV steroids and scheduled breathing treatments. She improved slowly and was d/c on prolong steroid taper. Patient also qualified for home oxygen. Discussed with patient that she has End stage COPD and that she needs to quit smoking. She will also need outpatient sleep study as she did better at night with bipap. HTN: At Goal. Continue home medications. No changes made Consipation H/o DM - A1c 5.4 H/o Drug Abuse Tobacco Use - Discussed the need for cessation Insomnia - Som TANG - Restarted home PPX medications, limit narcotic use due to rebound TANG Chief Complaint/HPI Chief Complaint/HPI 51 yo F that presented to urgent care at [facility] with increasing shortness of breath. Patient had taken albuterol treatment at home without improvement. She then had 2 duoneb treatments at the clinic without improvement and was found to be hypoxic at 86 upon arriving at [facility]. Patient states that she has been through out in the past couple weeks. She had a nephew that just . Since then she has been helping her sister nearly every day which is an hour drive for her. Denies any sick contacts or pain. Patient has a h/o COPD but states that she has not missed any doses. Denies fever or chills. No chest pain. Feels bloated and states that she has not had a BM in over a week but she has not been eating that much. Previous Cath and echo in Mar 2015 per patient that were both normal. + Smoking history of a least 1 ppd since she was in her 20s. Discharge Summary-Simple/Stand Consultations Dr Trievdi: Pulmonology and Critical Care Discharge Physical Examination Allergies: Coded Allergies: buspirone (Verified Allergy, Mild, 05/09/13) Made"legs Shaky" amlodipine (Verified Allergy, Unknown, 05/09/13) Anasarca Vitals & I&Os Vital Sign - Last 12Hours Date Time Temp Pulse Resp B/P (MAP) Pulse Ox O2 Delivery O2 Flow Rate FiO2 09/25/16 15:55 102 22 143/98 94 Nasal Cannula 2.00 97 09/25/16 12:00 98.4 Intake and Output 09/25/16 00:00 Intake Total 2515 ml Output Total 300 ml Balance 2215 ml General Appearance: Alert, Oriented X3, Cooperative HEENT: Atraumatic, Mucous Memb Moist/[place] Respiratory: Other (+ end exp wheezing (baseline)) Cardiovascular: Regular Rate, No Murmurs Abdominal: Normal Bowel Sounds, Soft, No Tenderness Extremities: Other (1+ pitting edema) Skin: No Rashes Neuro: Normal Gait, Normal Speech, Strength at 5/5 X4 Ext, Sensation Intact, Cranial Nerves 3-12 NL Psych/Mental Status: Mental Status NL, Mood NL Hospital Course See final discharge diagnosis. Other pending tests Patient needs outpatient sleep study Radiology Reviewed Date of Exam: 09/21/16 CHEST PA/LAT (2 VIEW) INDICATION: COPD COMPARISON: 09/20/16 FINDINGS: Frontal and lateral views of the chest demonstrate persistent but decreased atelectasis in both bases. There is no pneumothorax, effusion or new infiltrate. Heart is prominent without pulmonary edema. IMPRESSION: Persistent but decreasing atelectasis both bases. Date of Exam: 09/21/16 CT ANGIO CHEST W PROCEDURE: CT angiography of the chest with contrast. TECHNIQUE: Multiple contiguous axial images were obtained through the chest after uneventful bolus administration of intravenous contrast. Reconstructed CTA MIP acquisitions were also performed. INDICATION: Headache, shortness of breath, pulmonary embolism. COMPARISON: 08/31/14 FINDINGS: The heart is minimally enlarged. There is no pericardial effusion. Pulmonary arteries and aorta are grossly normal. No embolism or aortic dissection is identified. Centrilobular emphysema is seen in the mid and upper lung zones. There is some minimal consolidation in the lingula and left lung base. This is unchanged from the prior examination. The right lung is clear. There is no infiltrate. Osseous structures are stable. Visualized upper abdominal solid organs are intact. IMPRESSION: 1. Minimal cardiac enlargement without pulmonary edema. 2. No pulmonary embolism or aortic pathology. 3. COPD with stable atelectasis and/or consolidation in the left lung base and lingula. Discussion & Recommendations See D/c Diagnosis Discharge Condition at discharge Stable Instructions to patient/family Please see electonic discharge instructions given to patient. Discharge Medications Reviewed and agree with Discharge Medication list on patient's Discharge Instruction sheet Clinical Quality Measures DVT/VTE Risk/Contraindication: Risk Factor Score Per Nursin RFS Level Per Nursing on Admit: 3=High [facility] MD Sep 25, 2016 19:46
[2016-12-30] MEDS ORDERED: AZIT250T5 PO (17:25)
[2016-12-30] MEDS ORDERED: PRD20T PO (17:25)
[2017-01-06] MEDS ORDERED: PRED10TA22 PO (10:52)
== END 2016-09-25 15:55 | disposition home or self-care (01) | DRG 189 ==
LOC: EDUNIT# 15:22 → ER 15:24 → UNDOADMOB 17:15 → 4TH 17:15 → OBSVTOIN 09-21 11:00 → INTOOBSV 09-21 11:00 → 4TH 09-21 11:40 → ICU 09-21 11:40 → 4TH 09-23 10:10 → UNDODISIN 09-25 15:55
PROVIDERS: ADMIT Family Medicine; ATTEND Family Medicine
DX: J96.21 Acute and chronic respiratory failure with hypoxia (principal); J44.1 Chronic obstructive pulmonary disease with (acute) exacerbation; J45.901 Unspecified asthma with (acute) exacerbation; F41.9 Anxiety disorder, unspecified; F32.9 Major depressive disorder, single episode, unspecified; F17.210 Nicotine dependence, cigarettes, uncomplicated; I10 Essential (primary) hypertension; K59.09 Other constipation; E11.9 Type 2 diabetes mellitus without complications; E78.5 Hyperlipidemia, unspecified; F15.10 Other stimulant abuse, uncomplicated; G47.00 Insomnia, unspecified
CPT/HCPCS: 36415; 71010; 71020; 71275; 74000; 80048; 80053; 80202; 80306; 81000; 82550; 82553; 82805; 82962; 83036; 83605; 83735; 83880; 84100; 84484; 85007; 85025; 85027; 85652; 86141; 87040; 87070; 87205; 93970; 94640; 94660; 94664; 94760; 94761

== ENCOUNTER → 2016-11-27 | Outpatient (CLI) | payer OTHER ==
[~2016-11-27] MED LIST changes: +ALPR0.5T7 PO; +ARIP5TAB12 PO; +AZIT250T12 PO; +BUPR150T14 PO; +CETI10TA20 PO; +DULA0.75 SQ; +IPRA3AMP IH; +MULT1TAB69 PO; +OLAN15TA19 PO; +OLAN5TAB25 PO; +PRED10TA22 PO
== END ==
LOC: CARD 13:36
PROVIDERS: ATTEND Internal Medicine Cardiovascular Disease
DX: R00.1 Bradycardia, unspecified (principal); I44.2 Atrioventricular block, complete; I11.0 Hypertensive heart disease with heart failure; I51.7 Cardiomegaly; I49.3 Ventricular premature depolarization; R55 Syncope and collapse
CPT/HCPCS: 93306

== ENCOUNTER 2017-03-01 03:40 | Emergency (ER) | payer SELFPAY ==
[~2017-03-01] VITALS: Ht 177.8 cm; Wt 120.7 kg
--- OUTSIDE RECORDS SUMMARY | 2017-03-01 03:51 | XMS REPORT ---
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 Active Problem Thrush B37.0 Active 60053118 Problem TMJ (sprain of temporomandibular joint) S03.4XXA Active 67429317 Problem Bipolar disorder, current episode depressed, severe, without psychotic features F31.4 Active 77929688 Problem Anxiety F41.9 Active 96668770 Problem Generalized anxiety disorder F41.1 Active 59245121 Problem Tobacco abuse Z72.0 Active 08766074 Problem Bipolar disorder with depression F31.30 Active 05419519 Problem History of MRSA infection Z86.14 Active 712409463 Problem Non morbid obesity due to excess calories E66.09 Active 326868335 Problem Chronic bronchitis, unspecified chronic bronchitis type J42 Active 81279860 Problem Acute exacerbation of chronic obstructive pulmonary disease (COPD) J44.1 Active 308329742 Problem Knee pain, left M25.562 Active 02256026 Problem Migraine G43.909 Active 57033585 Problem Diabetes E11.9 Active 410381767 Problem Encounter for dental examination Z01.20 Active 756371445 Problem Obesity, unspecified obesity severity, unspecified obesity type E66.9 Active 964807730 Problem Migraine without aura and without status migrainosus, not intractable G43.009 Active 449617379 Problem Other emphysema J43.8 Active 36775728 Problem Chronic constipation K59.09 Active 481681464 Problem Dry mouth R68.2 Active 73484745 Problem Encounter for tobacco use cessation counseling Z71.6 Active 784354006 Problem Acute bronchitis with COPD J44.0 Active 440044323145471 Problem Left knee pain M25.562 Active 92853482 Problem Bipolar disorder, unspecified F31.9 Active 47723651 Problem Yeast vaginitis B37.3 Active 90181673 Problem Memory loss R41.3 Active 85867122 ALLERGIES No Information SOCIAL HISTORY Never Assessed PLAN OF CARE Activity Details Follow Up 2 Months Reason: VITAL SIGNS Height 70 in 2016-07-02 Weight 249 lbs 2016-07-02 Heart Rate 92 bpm 2016-07-02 Respiratory Rate 22 2016-07-02 BMI 35.72 kg/m2 2016-07-02 Blood pressure systolic 120 mmHg 2016-07-02 Blood pressure diastolic 88 mmHg 2016-07-02 MEDICATIONS Medication Instructions Dosage Frequency Start Date End Date Duration Status Advair Diskus 250 mcg-50 mcg Inhalation Twice a day 1 puff 12h Dec, Active One Daily Orally Once a day 1 tablet 24h Active Abilify 5 MG Orally PALS Once a day 1 tablet 24h Jun, 30 day(s ) Active Amoxicillin 500 MG Orally 4 times daily 1 capsule 7 days Active Nabumetone 750 MG Orally Twice a day 1 tablet 12h Sep, Active Cymbalta 60 mg Orally PALS Twice a day 1 capsule 12h Feb, 30 days Active Topamax 100 MG Orally Twice a day 1 tablet 12h 30 days Active Hydrochlorothiazide 50 mg Orally Once a day 1 tablet 24h Sep, Active Contrave 8-90 MG Orally Twice a day 2 tablets 12h Oct, 90 days Active Neurontin 300 MG Orally PALS Three times a day 1 capsule 8h Dec, 30 days Active HydrOXYzine Pamoate 25 MG Orally PALS twice a day 1 capsule as needed 12h Mar, 30 days Active Nystatin 071927 UNIT/ML Mouth/Throat Four times a day 4 ml swish and swallow 6h Jun, July, 10 days Active Ventolin HFA 90 mcg/actuation Inhalation every 4 hrs 2 puffs as needed 4h Dec, Active Spiriva HandiHaler 18 MCG Inhalation Once a day 1 capsule 24h Active Amitriptyline HCl 150 MG Orally repository Once a day 1 tablet 24h 30 days Active Zyprexa 15 MG Orally Once a day 1 tablet 24h Jan, 30 days Active Trulicity 0.75 MG/0.5ML Subcutaneous once weekly 0.5 ml Jun, Active RESULTS No Results PROCEDURES No Known procedures IMMUNIZATIONS No Known Immunizations MEDICAL (GENERAL) HISTORY Type Description Date Medical History COPD Medical History asthma Medical History heart cath Medical History Social phobia Medical History MRSA in right lung Medical History diabetes Surgical History heart cath 03/2015 Hospitalization History for surgeries Hospitalization History AMS 2/2 Benzos OD, pneumonia MRSA, MAYRA, Hypokalemia-- [facility] 12/20/2015 Hospitalization History COPD exacerbation, Asthma-[facility] 09/21/16
--- OUTSIDE RECORDS SUMMARY | 2017-03-01 03:53 | XMS REPORT ---
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 Active Problem Thrush B37.0 Active 91317096 Problem TMJ (sprain of temporomandibular joint) S03.4XXA Active 90894158 Problem Bipolar disorder, current episode depressed, severe, without psychotic features F31.4 Active 87987963 Problem Anxiety F41.9 Active 76194910 Problem Generalized anxiety disorder F41.1 Active 95510476 Problem Tobacco abuse Z72.0 Active 98324983 Problem Bipolar disorder with depression F31.30 Active 70735805 Problem History of MRSA infection Z86.14 Active 413854889 Problem Non morbid obesity due to excess calories E66.09 Active 848830349 Problem Chronic bronchitis, unspecified chronic bronchitis type J42 Active 82796807 Problem Acute exacerbation of chronic obstructive pulmonary disease (COPD) J44.1 Active 588430533 Problem Knee pain, left M25.562 Active 73910174 Problem Migraine G43.909 Active 17121703 Problem Diabetes E11.9 Active 882352680 Problem Encounter for dental examination Z01.20 Active 459325864 Problem Obesity, unspecified obesity severity, unspecified obesity type E66.9 Active 273774792 Problem Migraine without aura and without status migrainosus, not intractable G43.009 Active 300539009 Problem Other emphysema J43.8 Active 76994015 Problem Chronic constipation K59.09 Active 326107109 Problem Dry mouth R68.2 Active 27990363 Problem Encounter for tobacco use cessation counseling Z71.6 Active 451266569 Problem Acute bronchitis with COPD J44.0 Active 384092784704716 Problem Left knee pain M25.562 Active 01029529 Problem Bipolar disorder, unspecified F31.9 Active 34093039 Problem Yeast vaginitis B37.3 Active 18941313 Problem Memory loss R41.3 Active 43884453 ALLERGIES Substance Reaction Event Type Date Status Buspar 10 Mg Tablet made legs shaky Non Drug Allergy Jun, Active Benzodiazepines NARC ALERT Broke narc contract Non Drug Allergy Jun Active Narcotic NARC ALERT Broke Narc contract Non Drug Allergy Jun, Active SOCIAL HISTORY Never Assessed PLAN OF CARE Activity Details Follow Up 2 Months Reason:wt mgmt VITAL SIGNS Height 70 in 2016-07-02 Weight 249.9 lbs 2016-07-02 Temperature 98.5 degrees Fahrenheit 2016-07-02 Heart Rate 92 bpm 2016-07-02 Respiratory Rate 22 2016-07-02 Oximetry 98 % 2016-07-02 BMI 35.85 kg/m2 2016-07-02 Blood pressure systolic 120 mmHg 2016-07-02 Blood pressure diastolic 88 mmHg 2016-07-02 MEDICATIONS Medication Instructions Dosage Frequency Start Date End Date Duration Status Amitriptyline HCl 150 MG Orally PALS Once a day 1 tablet 24h 30 days Active Nystatin 000273 UNIT/ML Mouth/Throat Four times a day 4 ml swish and swallow 6h Jun, July, 10 days Active Cymbalta 60 mg Orally PALS Twice a day 1 capsule 12h Feb, 30 days Active HydrOXYzine Pamoate 25 MG Orally PALS twice a day 1 capsule as needed 12h Mar, 30 day(s) Active Topamax 100 MG Orally Twice a day 1 tablet 12h 30 days Active Spiriva HandiHaler 18 MCG Inhalation Once a day 1 capsule 24h Active Zyprexa 15 MG Orally Once a day 1 tablet 24h Jan, 90 days Active Zyprexa 5 mg Orally Once a day 1 tablet 24h Jan, 90 days Active Contrave 8-90 MG Orally Twice a day 2 tablets 12h 30 Oct, 2015 90 days Active One Daily Orally Once a day 1 tablet 24h Active Neurontin 300 MG Orally PALS Three times a day 1 capsule 8h Dec, 30 days Active Ventolin HFA 90 mcg/actuation Inhalation every 4 hrs 2 puffs as needed 4h Dec, Active Advair Diskus 250 mcg-50 mcg Inhalation Twice a day 1 puff 12h Dec, Active Hydrochlorothiazide 50 mg Orally Once a day 1 tablet 24h Sep, Active Trulicity 0.75 MG/0.5ML Subcutaneous once weekly 0.5 ml Jun, Active Nabumetone 750 MG Orally Twice a day 1 tablet 12h Sep, Active Amitiza 24 MCG Orally Twice a day 1 capsule with food 12h May, Jun, 45 days Active Amoxicillin 500 MG Orally 4 times daily 1 capsule 7 days Active RESULTS Name Result Date Reference Range A1C (IN HOUSE) 2016-07-02 A1C IN HOUSE 6.9 4.3 - 5.6 % Previous A1c 5.8 Lot [id number] Exp date 03/2018 PROCEDURES Procedure Date Ordered Result Body Site PHENERGAN 50MG/ML July 02, 2016 NEBULIZER TREATMENT 2016-07-02 N/A ALBUTEROL UNIT DOSE FORM INHALED 2016-07-02 N/A TORADOL (IM) 60 MG/2ML (UP TO 15 MG) July 02, 2016 ALBUTEROL INHAL UNIT DOSE 1 MG July 02, 2016 THER/PROPH/DIAG INJ, SC/IM July 02, 2016 GLYCATED HEMOGLOBIN TEST July 02, 2016 MEASURE BLOOD OXYGEN LEVEL July 02, 2016 NEB/MDI RX INITIAL July 02, 2016 IMMUNIZATIONS Vaccine Route Administration Date Status PHENERGAN 50MG/ML IM Intramuscular July 02, 2016 Administered TORADOL (IM) 60 MG/2ML (UP TO 15 MG) IM Intramuscular July 02, 2016 Administered MEDICAL (GENERAL) HISTORY Type Description Date Medical History COPD Medical History asthma Medical History heart cath Medical History Social phobia Medical History MRSA in right lung Medical History diabetes Surgical History heart cath 03/2015 Hospitalization History for surgeries Hospitalization History AMS 2/2 Benzos OD, pneumonia MRSA, MAYRA, Hypokalemia-- [facility] 12/20/2015 Hospitalization History COPD exacerbation, Asthma-[facility] 09/21/16
--- OUTSIDE RECORDS SUMMARY | 2017-03-01 03:53 | XMS REPORT ---
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 Active Problem Thrush B37.0 Active 39047454 Problem TMJ (sprain of temporomandibular joint) S03.4XXA Active 74929271 Problem Bipolar disorder, current episode depressed, severe, without psychotic features F31.4 Active 10532133 Problem Anxiety F41.9 Active 32109064 Problem Generalized anxiety disorder F41.1 Active 78042925 Problem Tobacco abuse Z72.0 Active 88192876 Problem Bipolar disorder with depression F31.30 Active 80471789 Problem History of MRSA infection Z86.14 Active 986531196 Problem Non morbid obesity due to excess calories E66.09 Active 339609520 Problem Chronic bronchitis, unspecified chronic bronchitis type J42 Active 22978571 Problem Acute exacerbation of chronic obstructive pulmonary disease (COPD) J44.1 Active 253351512 Problem Knee pain, left M25.562 Active 09921783 Problem Migraine G43.909 Active 96258019 Problem Diabetes E11.9 Active 068450717 Problem Encounter for dental examination Z01.20 Active 267728494 Problem Obesity, unspecified obesity severity, unspecified obesity type E66.9 Active 044136929 Problem Migraine without aura and without status migrainosus, not intractable G43.009 Active 675844343 Problem Other emphysema J43.8 Active 80034010 Problem Chronic constipation K59.09 Active 385162749 Problem Dry mouth R68.2 Active 53803944 Problem Encounter for tobacco use cessation counseling Z71.6 Active 410889298 Problem Acute bronchitis with COPD J44.0 Active 692981785104254 Problem Left knee pain M25.562 Active 32621037 Problem Bipolar disorder, unspecified F31.9 Active 40800745 Problem Yeast vaginitis B37.3 Active 02113386 Problem Memory loss R41.3 Active 61014984 ALLERGIES No Information SOCIAL HISTORY Never Assessed PLAN OF CARE VITAL SIGNS MEDICATIONS Unknown Medications RESULTS No Results PROCEDURES No Known procedures IMMUNIZATIONS No Known Immunizations MEDICAL (GENERAL) HISTORY Type Description Date Medical History COPD Medical History asthma Medical History heart cath Medical History Social phobia Medical History MRSA in right lung Medical History diabetes Surgical History heart cath 03/2015 Hospitalization History for surgeries Hospitalization History AMS 2/2 Benzos OD, pneumonia MRSA, MAYRA, Hypokalemia-- [facility] 12/20/2015 Hospitalization History COPD exacerbation, Asthma-[facility] 09/21/16
--- OUTSIDE RECORDS SUMMARY | 2017-03-01 03:54 | XMS REPORT ---
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 Active Problem Thrush B37.0 Active 24652414 Problem TMJ (sprain of temporomandibular joint) S03.4XXA Active 87581269 Problem Bipolar disorder, current episode depressed, severe, without psychotic features F31.4 Active 39671088 Problem Anxiety F41.9 Active 04261748 Problem Generalized anxiety disorder F41.1 Active 96781303 Problem Tobacco abuse Z72.0 Active 28944937 Problem Bipolar disorder with depression F31.30 Active 51504996 Problem History of MRSA infection Z86.14 Active 784229469 Problem Non morbid obesity due to excess calories E66.09 Active 330411658 Problem Chronic obstructive pulmonary disease with acute exacerbation J44.1 Active 025669696 Problem Chronic bronchitis, unspecified chronic bronchitis type J42 Active 45050930 Problem Knee pain, left M25.562 Active 88496091 Problem Migraine G43.909 Active 86927942 Problem Diabetes E11.9 Active 893101949 Problem Encounter for dental examination Z01.20 Active 506648814 Problem Obesity, unspecified obesity severity, unspecified obesity type E66.9 Active 257146289 Problem Migraine without aura and without status migrainosus, not intractable G43.009 Active 080791519 Problem Other emphysema J43.8 Active 73502700 Problem Chronic constipation K59.09 Active 925749450 Problem Dry mouth R68.2 Active 71096167 Problem Encounter for tobacco use cessation counseling Z71.6 Active 500600014 Problem Acute bronchitis with COPD J44.0 Active 363461777987164 Problem Left knee pain M25.562 Active 72269497 Problem Bipolar disorder, unspecified F31.9 Active 48526079 Problem Yeast vaginitis B37.3 Active 74236164 Problem Memory loss R41.3 Active 98748820 ALLERGIES No Information SOCIAL HISTORY Never Assessed [...] 2/2 Benzos OD, pneumonia MRSA, MAYRA, Hypokalemia-- [facility] 12/20/2015 Hospitalization History COPD exacerbation, Asthma-[facility] 09/21/16 Hospitalization History COPD-[facility] 12/30/2016
--- OUTSIDE RECORDS SUMMARY | 2017-03-01 03:58 | XMS REPORT ---
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 Active Problem Thrush B37.0 Active 52940114 Problem Bipolar disorder, unspecified F31.9 Active 87950189 Problem TMJ (sprain of temporomandibular joint) S03.4XXA Active 90190120 Problem Bipolar disorder, current episode depressed, severe, without psychotic features F31.4 Active 99648085 Problem Anxiety F41.9 Active 18329448 Problem Generalized anxiety disorder F41.1 Active 67167878 Problem Non morbid obesity due to excess calories E66.09 Active 312916783 Problem Bipolar disorder with depression F31.30 Active 48325909 Problem Acute exacerbation of chronic obstructive pulmonary disease (COPD) J44.1 Active 045295866 Problem Migraine without aura and without status migrainosus, not intractable G43.009 Active 168607574 Problem Migraine G43.909 Active 08303670 Problem Diabetes E11.9 Active 869004135 Problem Tobacco abuse Z72.0 Active 94028173 Problem Obesity, unspecified obesity severity, unspecified obesity type E66.9 Active 822856480 Problem History of MRSA infection Z86.14 Active 093666667 Problem Other emphysema J43.8 Active 69863489 Problem Encounter for dental examination Z01.20 Active 163623066 Problem Acute bronchitis with COPD J44.0 Active 628532584174365 Problem Chronic constipation K59.09 Active 218163879 Problem Knee pain, left M25.562 Active 11337187 Problem Encounter for tobacco use cessation counseling Z71.6 Active 767992951 Problem Memory loss R41.3 Active 27887644 Problem Left knee pain M25.562 Active 24046826 Problem Dry mouth R68.2 Active 85120889 Problem Yeast vaginitis B37.3 Active 42261757 ALLERGIES Substance Reaction Event Type Date Status Narcotic NARC ALERT Broke Narc contract Non Drug Allergy May, Active Buspar 10 Mg Tablet made legs shaky Non Drug Allergy May, Active Benzodiazepines NARC ALERT Broke narc contract Non Drug Allergy May Active SOCIAL HISTORY Never Assessed PLAN OF CARE Activity Details Follow Up prn Reason: VITAL SIGNS Height 70 in 2016-05-14 Weight 244.2 lbs 2016-05-14 Temperature 97.9 degrees Fahrenheit 2016-05-14 Heart Rate 88 bpm 2016-05-14 Respiratory Rate 18 2016-05-14 BMI 35.04 kg/m2 2016-05-14 Blood pressure systolic 110 mmHg 2016-05-14 Blood pressure diastolic 80 mmHg 2016-05-14 MEDICATIONS Medication Instructions Dosage Frequency Start Date End Date Duration Status Amitiza 24 MCG Orally Twice a day 1 capsule with food 12h May, Jun, 45 days Active Cymbalta 60 mg Orally PALS Twice a day 1 capsule 12h Feb, 30 days Active Topamax 100 MG Orally Twice a day 1 tablet 12h 30 days Active Spiriva HandiHaler 18 MCG Inhalation Once a day 1 capsule 24h Active Nabumetone 750 MG Orally Twice a day 1 tablet 12h Sep, Active Hydrochlorothiazide 50 mg Orally Once a day 1 tablet 24h Sep, Active Amoxicillin 500 MG Orally 4 times a day 1 capsule 6h 07 May, 2016 May, 7 days Active One Daily Orally Once a day 1 tablet 24h Active Neurontin 300 MG Orally PALS Three times a day 1 capsule 8h Dec, 30 days Active Amitriptyline HCl 150 MG Orally PALS Once a day 1 tablet 24h 30 days Active Zyprexa 5 mg Orally Once a day 1 tablet 24h Jan, 90 days Active Albuterol Sulfate (2.5 MG/3ML) 0.083% Inhalation Three times a day 3 ml 8h Active Ventolin HFA 90 mcg/actuation inhale 2-4 puff by Inhalation route as needed every 4 hours PRN for cough or wheeze Dec, Active Contrave 8-90 MG Orally Twice a day 2 tablets 12h Oct, 90 days Active Advair Diskus 250 mcg-50 mcg 1 puffs by Inhalation route 2 times per day Dec, Active Zyprexa 15 MG Orally Once a day 1 tablet 24h Jan, 90 days Active RESULTS Name Result Date Reference Range UA LONG DIP (IN HOUSE) 2016-05-14 Lot # [id number] Exp date 03/2017 Clarity CLEAR Color YELLOW Odor NO GLU NEG CIRILO NEG KET NEG SG 1.010 BLO NEG pH 6.0 Protein NEG URO 0.2 NIT NEG LYNN TRACE Lot # Exp date PDF Report 2016-05-14 PDF Report1 LCLS PAP TEST, HPV IF ASCUS 2016-05-14 DIAGNOSIS: Specimen adequacy: Clinician provided ICD10: Performed by: . . Note: . Mammogram, Bilateral Screening 2016-06-09 PROCEDURES Procedure Date Ordered Result Body Site URINALYSIS, AUTO, W/O SCOPE May 14, 2016 SPECIMEN HANDLING May 14, 2016 IMMUNIZATIONS No Known Immunizations MEDICAL (GENERAL) HISTORY Type Description Date Medical History COPD Medical History asthma Medical History heart cath Medical History Social phobia Medical History MRSA in right lung Medical History diabetes Surgical History heart cath 03/2015 Hospitalization History for surgeries Hospitalization History AMS 2/2 Benzos OD, pneumonia MRSA, MAYRA, Hypokalemia-- [facility] 12/20/2015 Hospitalization History COPD exacerbation, Asthma-[facility] 09/21/16
--- OUTSIDE RECORDS SUMMARY | 2017-03-01 03:58 | XMS REPORT ---
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 Active Problem Thrush B37.0 Active 92173288 Problem TMJ (sprain of temporomandibular joint) S03.4XXA Active 95669229 Problem Bipolar disorder, current episode depressed, severe, without psychotic features F31.4 Active 24371810 Problem Anxiety F41.9 Active 74577091 Problem Generalized anxiety disorder F41.1 Active 80091997 Problem Tobacco abuse Z72.0 Active 88177254 Problem Bipolar disorder with depression F31.30 Active 98170657 Problem History of MRSA infection Z86.14 Active 189014516 Problem Non morbid obesity due to excess calories E66.09 Active 284910555 Problem Chronic obstructive pulmonary disease with acute exacerbation J44.1 Active 692495695 Problem Chronic bronchitis, unspecified chronic bronchitis type J42 Active 56718406 Problem Knee pain, left M25.562 Active 94291806 Problem Migraine G43.909 Active 97843769 Problem Diabetes E11.9 Active 048352084 Problem Encounter for dental examination Z01.20 Active 637505349 Problem Obesity, unspecified obesity severity, unspecified obesity type E66.9 Active 869171845 Problem Migraine without aura and without status migrainosus, not intractable G43.009 Active 425392225 Problem Other emphysema J43.8 Active 09439703 Problem Chronic constipation K59.09 Active 165111714 Problem Dry mouth R68.2 Active 27154834 Problem Encounter for tobacco use cessation counseling Z71.6 Active 042078307 Problem Acute bronchitis with COPD J44.0 Active 828285604869378 Problem Left knee pain M25.562 Active 79099578 Problem Bipolar disorder, unspecified F31.9 Active 82561660 Problem Yeast vaginitis B37.3 Active 23383354 Problem Memory loss R41.3 Active 91492114 ALLERGIES No Information SOCIAL HISTORY Never Assessed PLAN OF CARE Activity Details Follow Up Every 2 weeks, 1/2 hour session. Reason: VITAL SIGNS MEDICATIONS Unknown Medications RESULTS No Results PROCEDURES Procedure Date Ordered Result Body Site Psychotherapy, patient &/family, 30 minutes, established patient August 08, 2016 IMMUNIZATIONS No Known Immunizations MEDICAL (GENERAL) HISTORY Type Description Date Medical History COPD Medical History asthma Medical History heart cath Medical History Social phobia Medical History MRSA in right lung Medical History diabetes Surgical History heart cath 03/2015 Hospitalization History for surgeries Hospitalization History AMS 2/2 Benzos OD, pneumonia MRSA, MAYRA, Hypokalemia-- [facility] 12/20/2015 Hospitalization History COPD exacerbation, Asthma-[facility] 09/21/16 Hospitalization History COPD-[facility] 12/30/2016
--- OUTSIDE RECORDS SUMMARY | 2017-03-01 03:58 | XMS REPORT ---
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 Active Problem Thrush B37.0 Active 42002625 Problem TMJ (sprain of temporomandibular joint) S03.4XXA Active 67945270 Problem Bipolar disorder, current episode depressed, severe, without psychotic features F31.4 Active 79156839 Problem Anxiety F41.9 Active 83848137 Problem Generalized anxiety disorder F41.1 Active 91900895 Problem Tobacco abuse Z72.0 Active 70378082 Problem Bipolar disorder with depression F31.30 Active 80861334 Problem History of MRSA infection Z86.14 Active 764497289 Problem Non morbid obesity due to excess calories E66.09 Active 608362906 Problem Chronic bronchitis, unspecified chronic bronchitis type J42 Active 11219264 Problem Acute exacerbation of chronic obstructive pulmonary disease (COPD) J44.1 Active 302219312 Problem Knee pain, left M25.562 Active 63667590 Problem Migraine G43.909 Active 94993804 Problem Diabetes E11.9 Active 850325322 Problem Encounter for dental examination Z01.20 Active 849260321 Problem Obesity, unspecified obesity severity, unspecified obesity type E66.9 Active 402785527 Problem Migraine without aura and without status migrainosus, not intractable G43.009 Active 170308847 Problem Other emphysema J43.8 Active 06633789 Problem Chronic constipation K59.09 Active 771892151 Problem Dry mouth R68.2 Active 39486641 Problem Encounter for tobacco use cessation counseling Z71.6 Active 089204007 Problem Acute bronchitis with COPD J44.0 Active 853392223776883 Problem Left knee pain M25.562 Active 25924974 Problem Bipolar disorder, unspecified F31.9 Active 84724497 Problem Yeast vaginitis B37.3 Active 39270386 Problem Memory loss R41.3 Active 10033506 ALLERGIES No Information SOCIAL HISTORY Never Assessed PLAN OF CARE VITAL SIGNS MEDICATIONS Medication Instructions Dosage Frequency Start Date End Date Duration Status Trulicity 0.75 MG/0.5ML Subcutaneous once weekly 0.5 ml Jun, 90 days Active RESULTS No Results PROCEDURES No Known procedures IMMUNIZATIONS No Known Immunizations MEDICAL (GENERAL) HISTORY Type Description Date Medical History COPD Medical History asthma Medical History heart cath Medical History Social phobia Medical History MRSA in right lung Medical History diabetes Surgical History heart cath 03/2015 Hospitalization History for surgeries Hospitalization History AMS 2/2 Benzos OD, pneumonia MRSA, MAYRA, Hypokalemia-- [facility] 12/20/2015 Hospitalization History COPD exacerbation, Asthma-[facility] 09/21/16
[2017-03-01] MEDS ORDERED: methylPREDNISolone 125 MG (Solu-MEDROL) VIAL IVP ONE (04:00)
[2017-03-01] MEDS ORDERED: ASPIRIN 81 MG CHEW (CHILDREN'S ASA) PO ONE (04:00)
[2017-03-01] MEDS ORDERED: DEXAMETHASONE 4 MG/ML SDV (DECADRON) IH ONE (04:00)
[2017-03-01] MEDS ORDERED: RT-ALBUTEROL/IPRATROPIUM 3 ML (DUONEB) VIAL INH ONE ×2 (04:00→05:00)
--- NOTE | 2017-03-01 04:32 | ED Respiratory ---
General Chief Complaint: Chest Pain Stated Complaint: CHEST PAIN SOA Source: patient History of Present Illness Time seen by provider: 03:45 Initial Comments PT ARRIVES VIA POV FROM HOME C/O SHORTNESS OF BREATH AND CHEST PAIN X 3 DAYS PAIN IS IN RIGHT UPPER CHEST, AND LEFT LOWER CHEST NOTHING WORSENS OR IMPROVES PAIN C/O PRODUCTIVE COUGH --CLEAR SPUTUM NO FEVER PT WITH COPD AND IS O2 DEPENDENT AT 2L/NC, BUT DID NOT BRING O2 WITH HER PT HAS USED NEBULIZER SEVERAL TIMES TODAY, AND USED INHALER JUST PRIOR TO ARRIVAL--NO RELIEF SYMPTOMS GETTING WORSE PT CONTINUES TO SMOKE--HAS SMOKED 3-4 PPD, BUT LATELY HAS ONLY BEEN SMOKING 1 PPD 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 Allergies and Home Medications Allergies Coded Allergies: buspirone (Verified Allergy, Mild, 05/09/13) Made"legs Shaky" amlodipine (Verified Allergy, Unknown, 05/09/13) Anasarca Home Medications Albuterol Sulfate 18 Gm Hfa.aer.ad, 2 PUFF IH Q4H PRN for SHORTNESS OF BREATH, ( Reported) Amitriptyline HCl 150 Mg Tablet, 150 MG PO HS, (Reported) Aripiprazole 5 Mg Tablet, 5 MG PO DAILY, (Reported) Benzonatate 100 Mg Capsule, 1-2 TAB PO TID, #30 Prescribed by: TIMOTHY HUGHES on 03/01/17527 Budesonide 1 Mg/2 Ml Ampul.neb, 1 MG IH BID, #1 Prescribed by: TIMOTHY HUGHES on 03/01/17527 Cetirizine HCl 10 Mg Tablet, 10 MG PO DAILY, (Reported) D-Methorphan Hb/Prometh HCl 118 Ml Syrup, 1-2 TSP PO Q4H, #120 Prescribed by: TIMOTHY HUGHES on 03/01/17527 Dulaglutide 0.75 Mg/0.5 Ml Pen.injctr, 0.75 MG SQ Fr, (Reported) Duloxetine HCl 60 Mg Capsule.dr, 60 MG PO BID, (Reported) Fluticasone/Salmeterol 1 Each Blst.w.dev, 1 PUFF IH BID, (Reported) Gabapentin 300 Mg Capsule, 300 MG PO TID, (Reported) Ipratropium/Albuterol Sulfate 3 Ml Ampul.neb, 3 ML IH QID PRN for SHORTNESS OF BREATH, (Reported) Methylprednisolone 4 Mg Tab.ds.pk, 4 MG PO UD, #1 Prescribed by: TIMOTHY HUGHES on 03/01/17 0528 Multivitamin 1 Each Tablet, 1 TAB PO DAILY, (Reported) Olanzapine 15 Mg Tablet, 15 MG PO HS, (Reported) Prednisone 10 Mg Tab.ds.pk, 10 MG PO DAILY, #42 Ref 0 Take 6 tabs(60mg)daily,decrease by 1 tab(10mg)every other day. Prescribed by: ALICIA VALENCIA on 01/06/17 1052 Tiotropium [place] 1 Inh Aerp, 1 CAP IH DAILY, (Reported) Topiramate 100 Mg Tablet, 100 MG PO BID, (Reported) Zolpidem Tartrate 6.25 Mg Tab.mphase, (Reported) Constitutional: no symptoms reported, No chills, No fever EENTM: no symptoms reported Respiratory: cough, short of breath, wheezing Cardiovascular: see HPI, chest pain Gastrointestinal: no symptoms reported Genitourinary: no symptoms reported : No (MENOPAUSAL) Musculoskeletal: no symptoms reported Skin: no symptoms reported Psychiatric/Neurological: No Symptoms Reported Hematologic/Lymphatic: No Symptoms Reported Immunological/Allergic: no symptoms reported Past Kinrryj-Ygurvx-Nvmoxe Hx Patient Social History Alcohol Use: Occasionally Uses Recreational Drug Use: Yes (+IV METH) Drug of Choice: +IV METH Smoking Status: Current Everyday Smoker (3-4 PPD) Type Used: Cigarettes 2nd Hand Smoke Exposure: Yes Recent Foreign Travel: No Contact w/Someone Who Travel: No Recent Hopitalizations: No Immunizations Up To Date Tetanus Booster (TDap): More than 5yrs Date of Pneumonia Vaccine: Dec 08, 2011 Date of Influenza Vaccine: Dec 31, 2016 Seasonal Allergies Seasonal Allergies: No Surgeries History of Surgeries: No Respiratory History of Respiratory Disorde: Yes (O2 AT 2L/NC) Respiratory Disorders: Asthma, COPD Currently Using CPAP: No Currently Using BIPAP: No Cardiovascular History of Cardiac Disorders: Yes Cardiac Disorders: Hypertension Neurological History of Neurological Disord: Yes Neurological Disorders: Headaches /Migraines 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 System Hx 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 Disorders: No Sexually Transmitted Disease: No HIV/AIDS: No 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 Disorders: Denies 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 Genitourinary History of Genitourinary Disor: No Gastrointestinal History of Gastrointestinal Di: Yes Gastrointestinal Disorders: Chronic Constipation, Chronic Diarrhea Musculoskeletal History of Musculoskeletal Dis: Yes (chronic shoulder and neck pain) Endocrine History of Endocrine Disorders: Yes (STATES WAS DIABETIC, BUT NO LONGER) Endocrine Disorders: Diabetes, Non-Insulin dep HEENT History of HEENT Disorders: No Cancer History of Cancer: No Psychosocial History of Psychiatric Problem: Yes Behavioral Health Disorders: Anxiety, Depression Integumentary History of Skin or Integumenta: No Blood Transfusions History of Blood Disorders: No Adverse Reaction to a Blood Tr: No Family Medical History Significant Family History: No Pertinent Family Hx Family Medial History: Cancer 03 MOTHER, Onset:66 (LUNG ) 09 BROTHER (LUNG ) Congestive heart failure 03 FATHER Physical Exam Vital Signs Vital Sign - Last 12Hours 03/01/17 03:50 Temp 98.5 Pulse 137 Resp 26 B/P (MAP) 143/105 (118) Pulse Ox 95 O2 Delivery Nasal Cannula O2 Flow Rate 2.0 Capillary Refill : General Appearance: obese, other (ANXIOUS, MILDLY DYSPNEIC BUT ABLE TO TALK IN FULL SENTENCES. CONSTANT MOVEMENTS AND SHAKING OF FEET) HEENT: PERRL/EOMI Neck: normal inspection Respiratory: no accessory muscle use, wheezing (AUDIBLE WHEEZING FROM DOORWAY) , other (MILDLY DYSNPEIC. CHEST TENDER TO PALPATION--REPRODUCES PAIN. 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 nml as tested, no motor/sensory deficits, alert, oriented x 3 Skin: normal color, warm/dry Progress/Results/Core Measures Suspected Sepsis SIRS Temperature: Pulse: Respiratory Rate: Laboratory Tests 03/01/17 04:40: White Blood Count 14.0H Blood Pressure / Mean: Laboratory Tests 03/01/17 04:40: Creatinine 0.84, INR Comment 1.0, Platelet Count 262, Total Bilirubin 0.6 Results/Orders Lab Results Laboratory Tests Test 03/01/17 04:40 Range/Units White Blood Count 14.0 H 4.3-11.0 10^3/uL Red Blood Count 5.20 4.35-5.85 10^6/uL Hemoglobin 14.9 11.5-16.0 G/DL Hematocrit 45 35-52 % Mean Corpuscular Volume 87 80-99 FL Mean Corpuscular Hemoglobin 29 25-34 PG Mean Corpuscular Hemoglobin Concent 33 32-36 G/DL Red Cell Distribution Width 14.2 10.0-14.5 % Platelet Count 262 130-400 10^3/uL Mean Platelet Volume 10.3 7.4-10.4 FL Neutrophils (%) (Auto) 73 42-75 % Lymphocytes (%) (Auto) 13 12-44 % Monocytes (%) (Auto) 13 H 0-12 % Eosinophils (%) (Auto) 1 0-10 % Basophils (%) (Auto) 0 0-10 % Neutrophils # (Auto) 10.2 H 1.8-7.8 X 10^3 Lymphocytes # (Auto) 1.9 1.0-4.0 X 10^3 Monocytes # (Auto) 1.9 H 0.0-1.0 X 10^3 Eosinophils # (Auto) 0.1 0.0-0.3 10^3/uL Basophils # (Auto) 0.0 0.0-0.1 10^3/uL Neutrophils % (Manual) 79 % Lymphocytes % (Manual) 7 % Monocytes % (Manual) 4 % Eosinophils % (Manual) 2 % Basophils % (Manual) 0 % Band Neutrophils 0 % Reactive Lymphocytes 8 % Blood Morphology Comment NORMAL Prothrombin Time 13.3 12.2-14.7 SEC INR Comment 1.0 0.8-1.4 Activated Partial Thromboplast Time 33 24-35 SEC Sodium Level 137 135-145 MMOL/L Potassium Level 3.4 L 3.6-5.0 MMOL/L Chloride Level 98 98-107 MMOL/L Carbon Dioxide Level 24 21-32 MMOL/L Anion Gap 15 H 5-14 MMOL/L Blood Urea Nitrogen 3 L 7-18 MG/DL Creatinine 0.84 0.60-1.30 MG/DL Estimat Glomerular Filtration Rate > 60 BUN/Creatinine Ratio 4 Glucose Level 111 H 70-105 MG/DL Calcium Level 9.0 8.5-10.1 MG/DL Magnesium Level 1.5 L 1.8-2.4 MG/DL Total Bilirubin 0.6 0.1-1.0 MG/DL Aspartate Amino Transf (AST/SGOT) 16 5-34 U/L Alanine Aminotransferase (ALT/SGPT) 20 0-55 U/L Alkaline Phosphatase 89 40-136 U/L Troponin I < 0.30 <0.30 NG/ML B-Type Natriuretic Peptide 100.3 H <100.0 PG/ML Total Protein 7.2 6.4-8.2 GM/DL Albumin 4.0 3.2-4.5 GM/DL Serum Alcohol < 10 <10 MG/DL Micro Results Microbiology 03/01/17 Influenza Types A,B Antigen (JADEN) - Final, Complete My Orders Orders - TIMOTHY HUGHES DO Saline Lock/Iv-Start (03/01/17 03:47) Ekg Tracing (03/01/17 03:47) O2 (03/01/17 03:47) Monitor-Rhythm Ecg Trace Only (03/01/17 03:47) BNP (03/01/17 03:47) Cbc With Automated Diff (03/01/17 03:47) Comprehensive Metabolic Panel (03/01/17 03:47) Magnesium (03/01/17 03:47) Protime With Inr (03/01/17 03:47) Partial Thromboplastin Time (03/01/17 03:47) Ua Culture If Indicated (03/01/17 03:47) Chest 1 View, Ap/Pa Only (03/01/17 03:47) Albuterol/Ipra Inhalation Soln (Duoneb I (03/01/17 04:00) Rt Request For Service (03/01/17 03:47) Svn Volume Nebulizer Rt-Rfs (03/01/17 03:47) Aspirin Chewable Tablet (Baby Aspirin Ch (03/01/17 04:00) Alcohol (03/01/17 03:55) Drug Screen Stat (Urine) (03/01/17 03:55) Influenza A And B Antigens (03/01/17 03:55) Methylprednisolone Sod Succ (Solu-Medrol (03/01/17 04:00) Dexamethasone Injection (Decadron Inject (03/01/17 04:00) Manual Differential (03/01/17 04:40) Albuterol/Ipra Inhalation Soln (Duoneb I (03/01/17 05:00) Svn Sm Volume Nebulizer Rt-Rfs (03/01/17 04:57) Rx-Oseltamivir Caps (Rx-Tamiflu Caps) (03/01/17 05:22) Benzonatate Capsule (Tessalon Perles) (03/01/17 09:00) Promethazine/ Codeine Syrup (Phenergan W (03/01/17 05:30) Ketorolac Injection (Toradol Injection) (03/01/17 05:30) Troponin I (03/01/17 05:56) Ketorolac Injection (Toradol Injection) (03/01/17 05:31) Medications Given in ED Current Medications Medications Dose Ordered Sig/Vladimir Route Start Time Stop Time Status Last Admin Dose Admin Albuterol/ Ipratropium 3 ml ONCE ONCE INH 03/01/17 04:00 03/01/17 04:01 DC 03/01/17 04:43 3 ML Albuterol/ Ipratropium 15 ml ONCE ONCE INH 03/01/17 05:00 03/01/17 05:01 DC 03/01/17 05:00 15 ML Aspirin 324 mg ONCE ONCE PO 03/01/17 04:00 03/01/17 04:01 DC 03/01/17 04:07 324 MG Dexamethasone Sodium Phosphate 20 mg ONCE ONCE IH 03/01/17 04:00 03/01/17 04:01 DC 03/01/17 04:43 20 MG Ketorolac Tromethamine 30 mg ONCE ONCE IVP 03/01/17 05:30 03/01/17 05:57 DC 03/01/17 05:37 30 MG Methylprednisolone Sodium Succinate 125 mg ONCE ONCE IVP 03/01/17 04:00 03/01/17 04:01 DC 03/01/17 04:08 125 MG Promethazine HCl/ Codeine 5 ml ONCE ONCE PO 03/01/17 05:30 03/01/17 05:31 DC 03/01/17 05:36 5 ML Vital Signs/I&O Vital Sign - Last 12Hours 03/01/17 03/01/17 03/01/17 03/01/17 03:50 03:50 03:50 04:07 Temp 98.5 Pulse 137 Resp 26 B/P (MAP) 143/105 (118) Pulse Ox 95 95 96 O2 Delivery Nasal Cannula Nasal Cannula Nasal Cannula Nasal Cannula O2 Flow Rate 2.0 2.00 2.0 2.00 03/01/17 03/01/17 03/01/17 04:32 05:37 05:57 Temp 98.5 98.3 Pulse 127 Resp 26 Pulse Ox 97 95 O2 Delivery Nasal Cannula Nasal Cannula O2 Flow Rate 2.00 2.00 Capillary Refill : Progress Note : Progress Note COUGH, DYSPNEA AND WHEEZING IMPROVED WITH NEB TREATMENT NO DETERIORATION IN PT'S CONDITION DURING ER STAY ECG Initial ECG Impression Time: 04:26 Initial ECG Rate: 131 Initial ECG Rhythm: S.Tach Initial ECG Impression: Nonspecific Changes Initial ECG Comparisson: No Previous ECG Available Diagnostic Imaging Comments CXR--BIBASILAR ATELECTASIS, PENDING RADIOLOGIST REVIEW Reviewed: Reviewed by Me Departure Impression Impression: Primary Impression: Influenza A Additional Impression: COPD exacerbation Disposition: HOME, SELF-CARE Condition: Improved Departure-Patient Inst. Referrals: ALIZA CARTER (PCP/Family) Primary Care Physician Patient Instructions: COPD Including Emphysema (DC), Flu, Adult (DC) Add. Discharge Instructions: STOP SMOKING USE YOUR ALBUTEROL NEBULIZER EVERY 4 HOURS FOR BREATHING TYLENOL 1 GRAM/ MOTRIN 800 MG 4 TIMES A DAY FOR PAIN OR FEVER LOTS OF CLEAR LIQUIDS TAKE TAMIFLU TWICE A DAY X 5 DAYS FOLLOW UP WITH [facility] IN 3-4 DAYS IF NO BETTER, RETURN TO ER IF WORSE All discharge instructions reviewed with patient and/or family. Voiced understanding. Scripts Benzonatate (Tessalon Perle) 100 Mg Capsule 1-2 TAB PO TID for Cough, #30 CAP Prov: TIMOTHY HUGHES DO 03/01/17 Budesonide (Pulmicort) 1 Mg/2 Ml Ampul.neb 1 MG IH BID, #1 UNIT Prov: TIMOTHY HUGHES DO 03/01/17 D-Methorphan Hb/Prometh HCl (Promethazine-Dm Syrup) 118 Ml Syrup 1-2 TSP PO Q4H for Cough, #120 ML Prov: TIMOTHY HUGHES DO 03/01/17 Methylprednisolone (Medrol) 4 Mg Tab.ds.pk 4 MG PO UD, #1 PKG Prov: TIMOTHY HUGHES DO 03/01/17 TIMOTHY HUGHES DO Mar 01, 2017 04:32
[2017-03-01] MEDS ORDERED: ZOLP6.2525 (04:37)
[2017-03-01 04:51] LABS: BASOPHILS % (AUTO) 0 % (0-10); EOSINOPHILS # (AUTO) 0.1 10^3/uL (0.0-0.3); EOSINOPHILS % (AUTO) 1 % (0-10); LYMPHOCYTES # (AUTO) 1.9 X 10^3 (1.0-4.0); LYMPHOCYTES % (AUTO) 13 % (12-44); MEAN CORPUSCULAR HEMOGLOBIN 29 PG (25-34); MEAN CORPUSCULAR HGB CONC 33 G/DL (32-36); MEAN CORPUSCULAR VOLUME 87 FL (80-99); MEAN PLATELET VOLUME 10.3 FL (7.4-10.4); MONOCYTES # (AUTO) 1.9 X 10^3 (0.0-1.0); MONOCYTES % (AUTO) 13 % (0-12); NEUTROPHILS # (AUTO) 10.2 X 10^3 (1.8-7.8); NEUTROPHILS % (AUTO) 73 % (42-75); PLATELET COUNT 262 10^3/uL (130-400); RED CELL DISTRIBUTION WIDTH 14.2 % (10.0-14.5)
[2017-03-01 05:10] LABS: PROTHROMBIN TIME PATIENT 13.3 SEC (12.2-14.7)
[2017-03-01 05:15] LABS: BAND NEUTROPHILS 0 %; EOSINOPHILS % (MANUAL) 2 %; LYMPHOCYTES % (MANUAL) 7 %; NEUTROPHILS % (MANUAL) 79 %
[2017-03-01 05:16] LABS: BASOPHILS % (MANUAL) 0 %; REACTIVE LYMPHOCYTES 8 %
[2017-03-01 05:22] LABS: ALANINE AMINOTRANSFERASE 20 U/L (0-55); ANION GAP 15 MMOL/L (5-14); ASPARTATE AMINO TRANSFERASE 16 U/L (5-34); BILIRUBIN,TOTAL 0.6 MG/DL (0.1-1.0); BLOOD UREA NITROGEN 3 MG/DL (7-18); BUN/CREATININE RATIO 4; CARBON DIOXIDE 24 MMOL/L (21-32); CHLORIDE 98 MMOL/L (98-107); CREATININE SERUM 0.84 MG/DL (0.60-1.30); GFR ESTIMATED > 60; GLUCOSE 111 MG/DL (70-105); MAGNESIUM 1.5 MG/DL (1.8-2.4); POTASSIUM 3.4 MMOL/L (3.6-5.0); SODIUM 137 MMOL/L (135-145); TOTAL PROTEIN 7.2 GM/DL (6.4-8.2)
[2017-03-01] MEDS ORDERED: RX-OSELTAMIVIR 75 MG (TAMIFLU) BOX OF 10 PO STA (05:22)
[2017-03-01] MEDS ORDERED: BUDE1AMP IH (05:28)
[2017-03-01] MEDS ORDERED: BENZ-13 PO (05:28)
[2017-03-01] MEDS ORDERED: METH4TAB PO (05:28)
[2017-03-01] MEDS ORDERED: D-ME118S7 PO (05:28)
[2017-03-01] MEDS ORDERED: KETOROLAC 30 MG/ML VIAL IVP ONE (05:30)
[2017-03-01] MEDS ORDERED: PROMETHAZINE/ CODEINE SYRUP 5 ML UDC PO ONE (05:30)
[2017-03-01] MEDS ORDERED: KETOROLAC 30 MG/ML VIAL ONE (05:31)
[2017-03-01 05:49] LABS: ALCOHOL < 10 MG/DL (<10)
[2017-03-01 05:57] VITALS: BP 107/70
--- NOTE | 2017-03-01 07:10 | Diagnostic Imaging Report ---
INDICATION: Shortness of breath COMPARISON: 12/30/2016 FINDINGS: Single frontal view of the chest is obtained. Heart size is normal. The pulmonary vessels appear unremarkable. There are findings suggestive of COPD similar to the prior study. There is some minimal atelectasis in the left midlung. Lungs are otherwise clear. IMPRESSION: Findings suggestive of COPD and some left-sided atelectasis. Dictated by: Dictated on workstation # [id number]
[2017-03-01] MEDS ORDERED: BENZONATATE 100 MG (TESSALON) CAPSULE PO SCH (09:00)
== END 2017-03-01 05:56 | disposition home or self-care (01) ==
LOC: EDUNIT# 03:40 → ER 03:42
DX: J44.0 Chronic obstructive pulmonary disease with (acute) lower respiratory infection (principal); J10.1 Influenza due to other identified influenza virus with other respiratory manifestations; J44.1 Chronic obstructive pulmonary disease with (acute) exacerbation; I10 Essential (primary) hypertension; G43.909 Migraine, unspecified, not intractable, without status migrainosus; E11.9 Type 2 diabetes mellitus without complications; F41.9 Anxiety disorder, unspecified; F32.9 Major depressive disorder, single episode, unspecified; F15.10 Other stimulant abuse, uncomplicated; F17.210 Nicotine dependence, cigarettes, uncomplicated; Z87.19 Personal history of other diseases of the digestive system; Z80.1 Family history of malignant neoplasm of trachea, bronchus and lung
CPT/HCPCS: 36415; 71010; 80053; 80320; 83735; 83880; 84484; 85007; 85027; 85610; 85730; 87804; 93005; 93041; 94640

== ENCOUNTER 2017-03-08 10:32 | Emergency (ER) | payer SELFPAY ==
[~2017-03-08] VITALS: Ht 177.8 cm; Wt 120.7 kg
[~2017-03-08 10:32] MED LIST changes: +BENZ-13 PO; +BUDE1AMP IH; +D-ME118S7 PO; +ZOLP6.2525
[2017-03-08] MEDS ORDERED: RT-ALBUTEROL/IPRATROPIUM 3 ML (DUONEB) VIAL INH ONE (10:45)
--- NOTE | 2017-03-08 10:55 | ED Cough/URI ---
General Chief Complaint: Respiratory Problems Stated Complaint: BREATHING TROUBLE Source: patient Exam Limitations: no limitations History of Present Illness Time seen by provider: 10:54 Initial Comments To ER with reports of breathing trouble. Patient began feeling more dyspneic yesterday. She does wear oxygen at home around the clock or COPD. She was diagnosed here with influenza A on 03/01/17. Timing/Duration: constant Severity/Quality: moderate, dry cough Associated Symptoms: cough, shortness of breath Allergies and Home Medications Allergies Coded Allergies: buspirone (Verified Allergy, Mild, 05/09/13) Made"legs Shaky" amlodipine (Verified Allergy, Unknown, 05/09/13) Anasarca Home Medications Albuterol Sulfate 18 Gm Hfa.aer.ad, 2 PUFF IH Q4H PRN for SHORTNESS OF BREATH, ( Reported) Amitriptyline HCl 150 Mg Tablet, 150 MG PO HS, (Reported) Aripiprazole 5 Mg Tablet, 5 MG PO DAILY, (Reported) Azithromycin 250 Mg Tablet, 250 MG PO UD, #6 TAKE 2 TABLETS ON DAY ONE THEN TAKE 1 TABLET DAILY FOR FOUR MORE DAYS Prescribed by: ELLEN ACE on 03/08/17 1123 Benzonatate 100 Mg Capsule, 1-2 TAB PO TID, #30 Prescribed by: TIMOTHY HUGHES on 03/01/17 0528 Budesonide 1 Mg/2 Ml Ampul.neb, 1 MG IH BID, #1 Prescribed by: TIMOTHY HUGHES on 03/01/17 0528 Cetirizine HCl 10 Mg Tablet, 10 MG PO DAILY, (Reported) D-Methorphan Hb/Prometh HCl 118 Ml Syrup, 1-2 TSP PO Q4H, #120 Prescribed by: TIMOTHY HUGHES on 03/01/17 0528 Dulaglutide 0.75 Mg/0.5 Ml Pen.injctr, 0.75 MG SQ Fr, (Reported) Duloxetine HCl 60 Mg Capsule.dr, 60 MG PO BID, (Reported) Fluticasone/Salmeterol 1 Each Blst.w.dev, 1 PUFF IH BID, (Reported) Gabapentin 300 Mg Capsule, 300 MG PO TID, (Reported) Ipratropium/Albuterol Sulfate 3 Ml Ampul.neb, 3 ML IH QID PRN for SHORTNESS OF BREATH, (Reported) Methylprednisolone 4 Mg Tab.ds.pk, 4 MG PO UD, #1 Prescribed by: TIMOTHY HUGHES on 03/01/17 0528 Multivitamin 1 Each Tablet, 1 TAB PO DAILY, (Reported) Olanzapine 15 Mg Tablet, 15 MG PO HS, (Reported) Prednisone 10 Mg Tab.ds.pk, 10 MG PO DAILY, #42 Ref 0 Take 6 tabs(60mg)daily,decrease by 1 tab(10mg)every other day. Prescribed by: ALICIA VALENCIA on 01/06/17 1052 Tiotropium [place] 1 Inh Aerp, 1 CAP IH DAILY, (Reported) Topiramate 100 Mg Tablet, 100 MG PO BID, (Reported) Zolpidem Tartrate 6.25 Mg Tab.mphase, (Reported) Constitutional: see HPI EENTM: see HPI Respiratory: see HPI, cough, short of breath Cardiovascular: no symptoms reported Musculoskeletal: no symptoms reported Skin: no symptoms reported Psychiatric/Neurological: Anxiety, Headache (chronic for her) Hematologic/Lymphatic: No Symptoms Reported Immunological/Allergic: no symptoms reported Past Kkowjnn-Kbgezu-Aowotf Hx Patient Social History Drug of Choice: +IV METH Type Used: Cigarettes 2nd Hand Smoke Exposure: Yes Recent Foreign Travel: No Contact w/Someone Who Travel: No Recent Hopitalizations: No Immunizations Up To Date Tetanus Booster (TDap): More than 5yrs Date of Pneumonia Vaccine: Dec 08, 2011 Date of Influenza Vaccine: Dec 31, 2016 Seasonal Allergies Seasonal Allergies: No Surgeries History of Surgeries: No Respiratory History of Respiratory Disorde: Yes (O2 AT 2L/NC) Respiratory Disorders: Asthma, COPD Currently Using CPAP: No Currently Using BIPAP: No Cardiovascular History of Cardiac Disorders: Yes Cardiac Disorders: Hypertension Neurological History of Neurological Disord: Yes Neurological Disorders: Headaches /Migraines 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 System Hx 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 Disorders: No Sexually Transmitted Disease: No HIV/AIDS: No 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 Disorders: Denies CRANK HAND History: Menopausal Genitourinary History of Genitourinary Disor: No Gastrointestinal History of Gastrointestinal Di: Yes Gastrointestinal Disorders: Chronic Constipation, Chronic Diarrhea Musculoskeletal History of Musculoskeletal Dis: Yes (chronic shoulder and neck pain) Endocrine History of Endocrine Disorders: Yes (STATES WAS DIABETIC, BUT NO LONGER) Endocrine Disorders: Diabetes, Non-Insulin dep HEENT History of HEENT Disorders: No Cancer History of Cancer: No Psychosocial History of Psychiatric Problem: Yes Behavioral Health Disorders: Anxiety, Depression Integumentary History of Skin or Integumenta: No Blood Transfusions History of Blood Disorders: No Adverse Reaction to a Blood Tr: No Family Medical History Significant Family History: No Pertinent Family Hx Family Medial History: Cancer 03 MOTHER, Onset:66 (LUNG ) 09 BROTHER (LUNG ) Congestive heart failure 03 FATHER Physical Exam Vital Signs Vital Sign - Last 12Hours 03/08/17 03/08/17 10:33 10:47 Temp 97.4 Pulse 113 Resp 18 B/P (MAP) 99/78 (85) Pulse Ox 93 O2 Delivery Nasal Cannula O2 Flow Rate 1.00 Capillary Refill : General Appearance: WD/WN, no apparent distress, other (anxious appearing but no respiratory distress. Her lungs are more clear than they have sounds in the past during previous ER presentations.) Eyes: Bilateral Eye Normal Inspection, Bilateral Eye PERRL, Bilateral Eye EOMI HEENT: PERRL/EOMI, normal ENT inspection Neck: non-tender, full range of motion Respiratory: no respiratory distress, no accessory muscle use, wheezing Cardiovascular: regular rate, rhythm, no murmur Gastrointestinal: normal bowel sounds, non tender, soft Neurologic/Psychiatric: alert, normal mood/affect, oriented x 3 Skin: normal color, warm/dry Progress/Results/Core Measures Suspected Sepsis SIRS Temperature: Pulse: Respiratory Rate: Laboratory Tests 03/08/17 10:45: White Blood Count 12.2H Blood Pressure / Mean: Laboratory Tests 03/08/17 10:45: Creatinine 0.88, Platelet Count 348, Total Bilirubin 0.4 Results/Orders Lab Results Laboratory Tests Test 03/08/17 10:45 03/08/17 10:58 Range/Units White Blood Count 12.2 H 4.3-11.0 10^3/uL Red Blood Count 4.84 4.35-5.85 10^6/uL Hemoglobin 13.8 11.5-16.0 G/DL Hematocrit 42 35-52 % Mean Corpuscular Volume 86 80-99 FL Mean Corpuscular Hemoglobin 29 25-34 PG Mean Corpuscular Hemoglobin Concent 33 32-36 G/DL Red Cell Distribution Width 14.1 10.0-14.5 % Platelet Count 348 130-400 10^3/uL Mean Platelet Volume 10.1 7.4-10.4 FL Neutrophils (%) (Auto) 89 H 42-75 % Lymphocytes (%) (Auto) 8 L 12-44 % Monocytes (%) (Auto) 3 0-12 % Eosinophils (%) (Auto) 0 0-10 % Basophils (%) (Auto) 0 0-10 % Neutrophils # (Auto) 10.9 H 1.8-7.8 X 10^3 Lymphocytes # (Auto) 0.9 L 1.0-4.0 X 10^3 Monocytes # (Auto) 0.4 0.0-1.0 X 10^3 Eosinophils # (Auto) 0.0 0.0-0.3 10^3/uL Basophils # (Auto) 0.0 0.0-0.1 10^3/uL Neutrophils % (Manual) 91 % Lymphocytes % (Manual) 4 % Monocytes % (Manual) 5 % Eosinophils % (Manual) 0 % Basophils % (Manual) 0 % Band Neutrophils 0 % Blood Morphology Comment NORMAL Sodium Level 143 135-145 MMOL/L Potassium Level 3.0 L 3.6-5.0 MMOL/L Chloride Level 103 98-107 MMOL/L Carbon Dioxide Level 23 21-32 MMOL/L Anion Gap 17 H 5-14 MMOL/L Blood Urea Nitrogen 7 7-18 MG/DL Creatinine 0.88 0.60-1.30 MG/DL Estimat Glomerular Filtration Rate > 60 BUN/Creatinine Ratio 8 Glucose Level 220 H 70-105 MG/DL Calcium Level 9.2 8.5-10.1 MG/DL Total Bilirubin 0.4 0.1-1.0 MG/DL Aspartate Amino Transf (AST/SGOT) 22 5-34 U/L Alanine Aminotransferase (ALT/SGPT) 31 0-55 U/L Alkaline Phosphatase 90 40-136 U/L Total Protein 7.1 6.4-8.2 GM/DL Albumin 3.9 3.2-4.5 GM/DL Blood Gas Puncture Site Rt Radial Blood Gas Patient Temperature 97.4 Arterial Blood pH 7.48 H 7.37-7.43 Arterial Blood Partial Pressure CO2 34 L 35-45 MMHG Arterial Blood Partial Pressure O2 71 L 79-93 MMHG Arterial Blood HCO3 25 23-27 MMOL/L Arterial Blood Total CO2 26.5 21.0-31.0 MMOL/L Arterial Blood Oxygen Saturation 97 94-100 % Arterial Blood Base Excess 2.0 -2.5-2.5 MMOL/L Torsten Test YES-POS Blood Gas Ventilator Setting NO Blood Gas Inspired Oxygen 2 My Orders Orders - ELLEN ACE APRN Methylprednisolone Sod Succ (Solu-Medrol (03/08/17 11:00) Cbc With Automated Diff (03/08/17 10:46) Comprehensive Metabolic Panel (03/08/17 10:46) Chest 1 View, Ap/Pa Only (03/08/17 10:46) Saline Lock/Iv-Start (03/08/17 10:46) Alprazolam Tablet (Xanax Tablet) (03/08/17 11:00) Arterial Blood Gas (03/08/17 10:53) Manual Differential (03/08/17 10:45) Ondansetron Injection (Zofran Injectio (03/08/17 11:15) Ketorolac Injection (Toradol Injection) (03/08/17 11:15) Medications Given in ED Current Medications Medications Dose Ordered Sig/Vladimir Route Start Time Stop Time Status Last Admin Dose Admin Albuterol/ Ipratropium 3 ml ONCE ONCE INH 03/08/17 10:45 03/08/17 10:47 DC 03/08/17 10:46 3 ML Ketorolac Tromethamine 30 mg ONCE ONCE IVP 03/08/17 11:15 03/08/17 11:16 DC 03/08/17 11:19 30 MG Methylprednisolone Sodium Succinate 125 mg ONCE ONCE IVP 03/08/17 11:00 03/08/17 11:01 DC 03/08/17 10:57 125 MG Ondansetron HCl 8 mg ONCE ONCE IVP 03/08/17 11:15 03/08/17 11:16 DC 03/08/17 11:19 8 MG Vital Signs/I&O Vital Sign - Last 12Hours 03/08/17 03/08/17 10:33 10:47 Temp 97.4 Pulse 113 Resp 18 B/P (MAP) 99/78 (85) Pulse Ox 93 O2 Delivery Nasal Cannula O2 Flow Rate 1.00 Capillary Refill : Departure Communication (Admissions) Family Conversation 1127- O2 saturation 95% on baseline 2 liters. No respiratory distress. Lungs are clear. Progress Notes NAME: [facility] REC#: [id number] PT STATUS: REG ER : 1965 PHYSICIAN: ELLEN ACE APRN ADMIT DATE: 03/08/17/ER Draft Date of Exam:03/08/17 CHEST 1 VIEW, AP/PA ONLY EXAMINATION: Chest radiograph, portable AP view. DATE: 03/08/2017 at 1127 hours. INDICATION: 52-year-old female, shortness of breath, wheezing. COMPARISON: 03/01/2017. FINDINGS: Heart size and mediastinal contours are unremarkable. There is no identified pneumothorax. There is no large pleural effusion. There are linear opacities in the left midlung which are unchanged and may relate to subsegmental atelectasis versus scarring. There is no identified interval focal airspace consolidation. IMPRESSION: 1. No identified interval acute cardiopulmonary abnormality. 2. Mild linear opacities in the left midlung likely relating to mild subsegmental atelectasis and/or scarring. Dictated on workstation # [id number] Dict: 03/08/17 1114 Trans: 03/08/17 1117 [facility] [id number] Interpreted by: MARÍA ELENA FONG MD Electronically signed by: Impression Impression: Primary Impression: Anxiety Additional Impressions: Chronic headaches COPD (chronic obstructive pulmonary disease) Disposition: 01 HOME, SELF-CARE Condition: Stable Departure-Patient Inst. Decision time for Depature: 11:20 Referrals: ALIZA CARTER (PCP/Family) Primary Care Physician Patient Instructions: Chronic Obstructive Pulmonary Disease (COPD), Including Emphysema Add. Discharge Instructions: 1. Medication as directed 2. Return to ER for any concerns 3. All discharge instructions reviewed with patient and/or family. Voiced understanding. Scripts Azithromycin (Azithromycin) 250 Mg Tablet 250 MG PO UD, #6 TAB TAKE 2 TABLETS ON DAY ONE THEN TAKE 1 TABLET DAILY FOR FOUR MORE DAYS Prov: ELLEN ACE APRN 03/08/17 ELLEN ACE APRN Mar 08, 2017 10:55
[2017-03-08 10:57] LABS: BASOPHILS % (AUTO) 0 % (0-10); EOSINOPHILS % (AUTO) 0 % (0-10); HEMATOCRIT 42 % (35-52); HEMOGLOBIN 13.8 G/DL (11.5-16.0); LYMPHOCYTES # (AUTO) 0.9 X 10^3 (1.0-4.0); LYMPHOCYTES % (AUTO) 8 % (12-44); MEAN CORPUSCULAR HEMOGLOBIN 29 PG (25-34); MEAN CORPUSCULAR HGB CONC 33 G/DL (32-36); MEAN CORPUSCULAR VOLUME 86 FL (80-99); MEAN PLATELET VOLUME 10.1 FL (7.4-10.4); MONOCYTES # (AUTO) 0.4 X 10^3 (0.0-1.0); MONOCYTES % (AUTO) 3 % (0-12); NEUTROPHILS # (AUTO) 10.9 X 10^3 (1.8-7.8); NEUTROPHILS % (AUTO) 89 % (42-75); PLATELET COUNT 348 10^3/uL (130-400); RED BLOOD COUNT 4.84 10^6/uL (4.35-5.85); RED CELL DISTRIBUTION WIDTH 14.1 % (10.0-14.5); WHITE BLOOD COUNT 12.2 10^3/uL (4.3-11.0)
[2017-03-08] MEDS ORDERED: methylPREDNISolone 125 MG (Solu-MEDROL) VIAL IVP ONE (11:00)
[2017-03-08] MEDS ORDERED: ALPRAZolam 0.5 MG (XANAX) TAB PO SCH (11:00)
[2017-03-08 11:05] LABS: ABG OXYGEN SATURATION 97 % (94-100); ABG PCO2 34 MMHG (35-45); ABG PH 7.48 (7.37-7.43); ABG PO2 71 MMHG (79-93); ABG TCO2 26.5 MMOL/L (21.0-31.0)
[2017-03-08 11:07] LABS: ALLENS TEST YES-POS; INSPIRED O2 2; PATIENT TEMP 97.4; VENTILATOR NO
[2017-03-08] MEDS ORDERED: KETOROLAC 30 MG/ML VIAL IVP ONE (11:15)
[2017-03-08] MEDS ORDERED: ONDANSETRON 4 MG/2 ML (SDV) Z0FRAN IVP ONE (11:15)
[2017-03-08 11:16] LABS: BAND NEUTROPHILS 0 %; BASOPHILS % (MANUAL) 0 %; EOSINOPHILS % (MANUAL) 0 %; LYMPHOCYTES % (MANUAL) 4 %; MONOCYTES % (MANUAL) 5 %; NEUTROPHILS % (MANUAL) 91 %; RBC MORPH NORMAL
--- NOTE | 2017-03-08 11:17 | Diagnostic Imaging Report ---
EXAMINATION: Chest radiograph, portable AP view. DATE: 03/08/2017 at 1127 hours. INDICATION: 52-year-old female, shortness of breath, wheezing. COMPARISON: 03/01/2017. FINDINGS: Heart size and mediastinal contours are unremarkable. There is no identified pneumothorax. There is no large pleural effusion. There are linear opacities in the left midlung which are unchanged and may relate to subsegmental atelectasis versus scarring. There is no identified interval focal airspace consolidation. IMPRESSION: 1. No identified interval acute cardiopulmonary abnormality. 2. Mild linear opacities in the left midlung likely relating to mild subsegmental atelectasis and/or scarring. Dictated by: Dictated on workstation # [id number]
[2017-03-08 11:18] LABS: ALANINE AMINOTRANSFERASE 31 U/L (0-55); ALBUMIN 3.9 GM/DL (3.2-4.5); ALKALINE PHOSPHATASE 90 U/L (40-136); BILIRUBIN,TOTAL 0.4 MG/DL (0.1-1.0); BUN/CREATININE RATIO 8; CALCIUM 9.2 MG/DL (8.5-10.1); CARBON DIOXIDE 23 MMOL/L (21-32); CHLORIDE 103 MMOL/L (98-107); CREATININE SERUM 0.88 MG/DL (0.60-1.30); GFR ESTIMATED > 60; GLUCOSE 220 MG/DL (70-105); SODIUM 143 MMOL/L (135-145); TOTAL PROTEIN 7.1 GM/DL (6.4-8.2)
[2017-03-08] MEDS ORDERED: AZIT250T12 PO (11:23)
[2017-03-08 11:31] VITALS: BP 137/106
== END 2017-03-08 11:30 | disposition home or self-care (01) ==
LOC: EDUNIT# 10:32 → ER 10:33
DX: F41.9 Anxiety disorder, unspecified (principal); J44.9 Chronic obstructive pulmonary disease, unspecified; R51 Headache; G89.29 Other chronic pain; I10 Essential (primary) hypertension; G43.909 Migraine, unspecified, not intractable, without status migrainosus; E11.9 Type 2 diabetes mellitus without complications; F32.9 Major depressive disorder, single episode, unspecified; Z80.1 Family history of malignant neoplasm of trachea, bronchus and lung; Z82.49 Family history of ischemic heart disease and other diseases of the circulatory system; Z87.19 Personal history of other diseases of the digestive system; Z86.19 Personal history of other infectious and parasitic diseases; Z77.22 Contact with and (suspected) exposure to environmental tobacco smoke (acute) (chronic)
CPT/HCPCS: 36415; 71010; 80053; 82805; 85007; 85025; 85027; 94640

== ENCOUNTER 2017-03-08 18:20 | Emergency (ER) | payer SELFPAY ==
[~2017-03-08] VITALS: Ht 177.8 cm; Wt 120.7 kg
[2017-03-08] MEDS ORDERED: RT-ALBUTEROL/IPRATROPIUM 3 ML (DUONEB) VIAL ONE (18:42)
--- NOTE | 2017-03-08 18:58 | ED Cough/URI ---
General Chief Complaint: Respiratory Problems Stated Complaint: SOB Nursing Triage Note: PT HERE WITH C/O SOB. PT REPORTS BEING SEEN TODAY WITH SAME COMPLAINT AND REPORTS WORSENING SYMPTOMS TODAY. Source: patient Exam Limitations: no limitations History of Present Illness Time seen by provider: 18:56 Initial Comments To ER with shortness of breath. She was just seen here earlier today for the same complaint. She just finished prednisone for a COPD exacerbation. She was also given Tamiflu as she tested positive for influenza a 01 March here. She was very anxious here earlier today but moving good air. Timing/Duration: constant Severity/Quality: dry cough Associated Symptoms: cough Allergies and Home Medications Allergies Coded Allergies: buspirone (Verified Allergy, Mild, 05/09/13) Made"legs Shaky" amlodipine (Verified Allergy, Unknown, 05/09/13) Anasarca Home Medications Albuterol Sulfate 18 Gm Hfa.aer.ad, 2 PUFF IH Q4H PRN for SHORTNESS OF BREATH, ( Reported) Amitriptyline HCl 150 Mg Tablet, 150 MG PO HS, (Reported) Aripiprazole 5 Mg Tablet, 5 MG PO DAILY, (Reported) Azithromycin 250 Mg Tablet, 250 MG PO UD, #6 TAKE 2 TABLETS ON DAY ONE THEN TAKE 1 TABLET DAILY FOR FOUR MORE DAYS Prescribed by: ELLEN ACE on 03/08/17 1123 Benzonatate 100 Mg Capsule, 1-2 TAB PO TID, #30 Prescribed by: TIMOTHY HUGHES on 03/01/17527 Budesonide 1 Mg/2 Ml Ampul.neb, 1 MG IH BID, #1 Prescribed by: TIMOTHY HUGHES on 03/01/1728 Cetirizine HCl 10 Mg Tablet, 10 MG PO DAILY, (Reported) D-Methorphan Hb/Prometh HCl 118 Ml Syrup, 1-2 TSP PO Q4H, #120 Prescribed by: TIMOTHY HUGHES on 03/01/1728 Dulaglutide 0.75 Mg/0.5 Ml Pen.injctr, 0.75 MG SQ Fr, (Reported) Duloxetine HCl 60 Mg Capsule.dr, 60 MG PO BID, (Reported) Fluticasone/Salmeterol 1 Each Blst.w.dev, 1 PUFF IH BID, (Reported) Gabapentin 300 Mg Capsule, 300 MG PO TID, (Reported) Ipratropium/Albuterol Sulfate 3 Ml Ampul.neb, 3 ML IH QID PRN for SHORTNESS OF BREATH, (Reported) Methylprednisolone 4 Mg Tab.ds.pk, 4 MG PO UD, #1 Prescribed by: TIMOTHY HUGHES on 03/01/17 0528 Multivitamin 1 Each Tablet, 1 TAB PO DAILY, (Reported) Olanzapine 15 Mg Tablet, 15 MG PO HS, (Reported) Prednisone 10 Mg Tab.ds.pk, 10 MG PO DAILY, #42 Ref 0 Take 6 tabs(60mg)daily,decrease by 1 tab(10mg)every other day. Prescribed by: ALICIA VALENCIA on 01/06/17 1052 Tiotropium [place] 1 Inh Aerp, 1 CAP IH DAILY, (Reported) Topiramate 100 Mg Tablet, 100 MG PO BID, (Reported) Zolpidem Tartrate 6.25 Mg Tab.mphase, (Reported) Constitutional: see HPI EENTM: see HPI Respiratory: see HPI, cough Cardiovascular: no symptoms reported Genitourinary: no symptoms reported Musculoskeletal: no symptoms reported Skin: no symptoms reported Psychiatric/Neurological: See HPI, Anxiety Hematologic/Lymphatic: No Symptoms Reported Past Ubbpnus-Bevezw-Cjkgak Hx Patient Social History Drug of Choice: +IV METH Type Used: Cigarettes 2nd Hand Smoke Exposure: Yes Recent Foreign Travel: No Contact w/Someone Who Travel: No Recent Infectious Disease Expo: No Recent Hopitalizations: No Immunizations Up To Date Tetanus Booster (TDap): More than 5yrs Date of Pneumonia Vaccine: Dec 08, 2011 Date of Influenza Vaccine: Dec 31, 2016 Seasonal Allergies Seasonal Allergies: No Surgeries History of Surgeries: No Respiratory History of Respiratory Disorde: Yes (O2 AT 2L/NC) Respiratory Disorders: Asthma, COPD Currently Using CPAP: No Currently Using BIPAP: No Cardiovascular History of Cardiac Disorders: Yes Cardiac Disorders: Hypertension Neurological History of Neurological Disord: Yes Neurological Disorders: Headaches /Migraines 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 System Hx 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 Disorders: No Sexually Transmitted Disease: No HIV/AIDS: No 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 Disorders: Denies [employer]ER History: Menopausal Genitourinary History of Genitourinary Disor: No Gastrointestinal History of Gastrointestinal Di: Yes Gastrointestinal Disorders: Chronic Constipation, Chronic Diarrhea Musculoskeletal History of Musculoskeletal Dis: Yes (chronic shoulder and neck pain) Endocrine History of Endocrine Disorders: Yes (STATES WAS DIABETIC, BUT NO LONGER) Endocrine Disorders: Diabetes, Non-Insulin dep HEENT History of HEENT Disorders: No Cancer History of Cancer: No Psychosocial History of Psychiatric Problem: Yes Behavioral Health Disorders: Anxiety, Depression Integumentary History of Skin or Integumenta: No Blood Transfusions History of Blood Disorders: No Adverse Reaction to a Blood Tr: No Family Medical History Significant Family History: No Pertinent Family Hx Family Medial History: Cancer 03 MOTHER, Onset:66 (LUNG ) 09 BROTHER (LUNG ) Congestive heart failure 03 FATHER Physical Exam Vital Signs Vital Sign - Last 12Hours 03/08/17 18:35 Temp 98.7 Pulse 93 Resp 18 B/P (MAP) 119/105 (110) Pulse Ox 89 O2 Delivery Room Air Capillary Refill : Less Than 3 Seconds General Appearance: WD/WN, no apparent distress, other (anxious and tearful but moving good air without respiratory distress) Eyes: Bilateral Eye Normal Inspection, Bilateral Eye PERRL, Bilateral Eye EOMI HEENT: PERRL/EOMI, normal ENT inspection Neck: non-tender, full range of motion Respiratory: no respiratory distress, no accessory muscle use Cardiovascular: regular rate, rhythm, no murmur Gastrointestinal: normal bowel sounds, non tender Neurologic/Psychiatric: alert, normal mood/affect, oriented x 3 Skin: normal color, warm/dry Progress/Results/Core Measures Suspected Sepsis Recent Fever Within 48 Hours: No Infection Criteria Present: None New/Unexplained Altered Menta: No Sepsis Screen: No Definite Risk Sepsis Diagnosis: SIRS Temperature:98.7 Pulse: 93 Respiratory Rate: 18 Blood Pressure 119 /105 Mean: 110 Results/Orders My Orders Orders - ELLEN ACE APRN Diphenhydramine Injection (Benadryl Inje (03/08/17 19:00) Alprazolam Tablet (Xanax Tablet) (03/08/17 20:00) Medications Given in ED Current Medications Medications Dose Ordered Sig/Vladimir Route Start Time Stop Time Status Last Admin Dose Admin Albuterol/ Ipratropium 3 ml STK-MED ONCE .ROUTE 03/08/17 18:42 03/08/17 18:45 DC 03/08/17 18:44 3 ML Diphenhydramine HCl 50 mg ONCE ONCE IM 03/08/17 19:00 03/08/17 19:01 DC 03/08/17 19:00 50 MG Vital Signs/I&O Vital Sign - Last 12Hours 03/08/17 18:35 Temp 98.7 Pulse 93 Resp 18 B/P (MAP) 119/105 (110) Pulse Ox 89 O2 Delivery Room Air Capillary Refill : Less Than 3 Seconds Blood Pressure Mean: 110 Departure Communication (Admissions) Progress Notes 1957- oxygen saturation remains 92%. Respiratory rate 20. Patient still complains of shortness of breath. States she's very anxious and remains tearful. She states that she had an aunt pass away this morning. Impression Impression: Primary Impression: Anxiety Disposition: 01 HOME, SELF-CARE Condition: Stable Departure-Patient Inst. Decision time for Depature: 19:04 Referrals: ALIZA CARTER (PCP/Family) Primary Care Physician Patient Instructions: Anxiety, Adult (DC) Add. Discharge Instructions: All discharge instructions reviewed with patient and/or family. Voiced understanding. ELLEN ACE APRN Mar 08, 2017 18:58
[2017-03-08] MEDS ORDERED: diphenhydrAMINE 50 MG/ML INJ (BENADRYL) IM ONE (19:00)
[2017-03-08] MEDS ORDERED: ALPRAZolam 0.5 MG (XANAX) TAB PO SCH (20:00)
[2017-03-08 20:01] VITALS: BP 136/94
== END 2017-03-08 20:01 | disposition home or self-care (01) ==
LOC: EDUNIT# 18:20 → ER 18:21
DX: F41.9 Anxiety disorder, unspecified (principal); J44.9 Chronic obstructive pulmonary disease, unspecified; I10 Essential (primary) hypertension; E11.9 Type 2 diabetes mellitus without complications; F32.9 Major depressive disorder, single episode, unspecified; G43.909 Migraine, unspecified, not intractable, without status migrainosus; F15.10 Other stimulant abuse, uncomplicated; Z77.22 Contact with and (suspected) exposure to environmental tobacco smoke (acute) (chronic); Z82.49 Family history of ischemic heart disease and other diseases of the circulatory system; Z80.1 Family history of malignant neoplasm of trachea, bronchus and lung
CPT/HCPCS: 99284

== ENCOUNTER 2017-03-22 17:29 | Inpatient (IN) | payer SELFPAY ==
[~2017-03-22] VITALS: Ht 175.3 cm; Wt 118.5 kg
[~2017-03-22 17:29] MED LIST changes: -ZOLP6.2525; +ZOLP6.2525 PO
[2017-03-22] MEDS ORDERED: RT-ALBUTEROL SULF 2.5 MG/3 ML PRE-MIX VIAL INH STA (17:57)
[2017-03-22] MEDS ORDERED: NS IV 1000 ML 1,000 ML IV ONE (17:57)
[2017-03-22] MEDS ORDERED: RT-IPRATROPIUM (ATROVENT) 0.5MG/2.5ML AMP IH ONE (18:00)
[2017-03-22 18:35] LABS: BASOPHILS % (AUTO) 0 % (0-10); EOSINOPHILS % (AUTO) 0 % (0-10); HEMATOCRIT 39 % (35-52); HEMOGLOBIN 13.2 G/DL (11.5-16.0); LYMPHOCYTES % (AUTO) 11 % (12-44); MEAN CORPUSCULAR HEMOGLOBIN 29 PG (25-34); MEAN CORPUSCULAR HGB CONC 34 G/DL (32-36); MEAN CORPUSCULAR VOLUME 86 FL (80-99); MEAN PLATELET VOLUME 10.6 FL (7.4-10.4); MONOCYTES # (AUTO) 0.4 X 10^3 (0.0-1.0); MONOCYTES % (AUTO) 5 % (0-12); NEUTROPHILS # (AUTO) 8.1 X 10^3 (1.8-7.8); NEUTROPHILS % (AUTO) 85 % (42-75); PLATELET COUNT 232 10^3/uL (130-400); RED BLOOD COUNT 4.55 10^6/uL (4.35-5.85); RED CELL DISTRIBUTION WIDTH 14.9 % (10.0-14.5); WHITE BLOOD COUNT 9.6 10^3/uL (4.3-11.0)
--- NOTE | 2017-03-22 18:43 | Diagnostic Imaging Report ---
INDICATION: Cough and shortness of breath and COPD. EXAMINATION: Frontal chest was obtained at 6:13 p.m. COMPARISON: 03/08/17. FINDINGS: There is cardiomegaly. There are chronic appearing increased interstitial markings which are similar to the prior study. There is some linear scarring or atelectasis at the left base which is also unchanged compared to the prior study. There is no pneumothorax. Lung bases are poorly seen due to technique. IMPRESSION: Cardiomegaly with chronic appearing increased interstitial markings and some left basilar scarring or atelectasis. Lung bases are not well-seen due to technique there is no acute change, however, compared with 03/08/2017. Dictated by: Dictated on workstation # [id number]
[2017-03-22 18:56] LABS: BILIRUBIN,TOTAL 0.4 MG/DL (0.1-1.0); CALCIUM 9.5 MG/DL (8.5-10.1); POTASSIUM 3.9 MMOL/L (3.6-5.0); TOTAL PROTEIN 6.7 GM/DL (6.4-8.2)
--- NOTE | 2017-03-22 20:02 | ED Respiratory ---
General Chief Complaint: Respiratory Problems Stated Complaint: COPD/RESP DISTRESS Nursing Triage Note: Patient presented to [place] [facility] yesterday with complaints of shortness of breath. The patient was treated and dismissed at that time. The patient presented to [facility] this evening with SOA and was transported by EMS for further evaluation at . Source: patient Exam Limitations: no limitations History of Present Illness Time seen by provider: 17:30 Initial Comments This patient known to me from prior encounters presents to the emergency room via EMS from the [facility] clinic with shortness of air and wheezing. Symptoms persist despite DuoNeb treatment by [facility] and EMS. Patient was seen for the same symptoms in the [place] ER yesterday. She is not hypoxic at this time but does require chronic oxygen supplementation by nasal cannula. She feels better with a mask on and arrives with O2 by mask as applied by EMS. She received a Solu- Medrol injection 125 mg IM by [facility]. She is quite tight and wheezy on arrival. EMS states fingerstick blood sugar was 272. She needs to smoke one pack of cigarettes per day. Allergies and Home Medications Allergies Coded Allergies: buspirone (Verified Allergy, Mild, 05/09/13) Made"legs Shaky" amlodipine (Verified Allergy, Unknown, 05/09/13) Anasarca Home Medications Albuterol Sulfate 18 Gm Hfa.aer.ad, 2 PUFF IH Q4H PRN for SHORTNESS OF BREATH, ( Reported) Aripiprazole 15 Mg Tablet, 15 MG PO DAILY, (Reported) Dulaglutide 0.75 Mg/0.5 Ml Pen.injctr, 0.75 MG SQ Th, (Reported) Duloxetine HCl 60 Mg Capsule.dr, 120 MG PO DAILY, (Reported) TAKES 2 (60MG) CAPSULES Fluticasone/Salmeterol 1 Each Blst.w.dev, 1 PUFF IH BID, (Reported) Gabapentin 300 Mg Capsule, 300 MG PO TID, (Reported) LAST FILLED #90 7-26-17 Ipratropium/Albuterol Sulfate 3 Ml Ampul.neb, 3 ML IH QID PRN for SHORTNESS OF BREATH, (Reported) Melatonin 5 Mg Capsule, 5 MG PO HS, (Reported) Multivitamin 1 Each Tablet, 1 TAB PO DAILY, (Reported) Tiotropium [place] 1 Inh Aerp, 1 CAP IH DAILY, (Reported) Topiramate 100 Mg Tablet, 100 MG PO BID, (Reported) Zolpidem Tartrate 6.25 Mg Tab.mphase, 6.25 MG PO HS, (Reported) Constitutional: no symptoms reported EENTM: no symptoms reported Respiratory: see HPI Cardiovascular: no symptoms reported Gastrointestinal: no symptoms reported Genitourinary: no symptoms reported Musculoskeletal: no symptoms reported Skin: no symptoms reported Psychiatric/Neurological: No Symptoms Reported Hematologic/Lymphatic: No Symptoms Reported Past Gduhwga-Gwejim-Sdmgak Hx Patient Social History Alcohol Use: Denies Use Recreational Drug Use: No Drug of Choice: +IV METH Smoking Status: Never a Smoker Type Used: Cigarettes 2nd Hand Smoke Exposure: Yes Recent Foreign Travel: No Contact w/Someone Who Travel: No Recent Infectious Disease Expo: No Recent Hopitalizations: No Physical Abuse: No Sexual Abuse: No Immunizations Up To Date Tetanus Booster (TDap): More than 5yrs Date of Pneumonia Vaccine: Dec 08, 2011 Date of Influenza Vaccine: Dec 31, 2016 Seasonal Allergies Seasonal Allergies: No Surgeries History of Surgeries: No Respiratory History of Respiratory Disorde: Yes (O2 AT 2L/NC) Respiratory Disorders: Asthma, COPD Currently Using CPAP: No Currently Using BIPAP: No Cardiovascular History of Cardiac Disorders: Yes Cardiac Disorders: Hypertension Neurological History of Neurological Disord: Yes Neurological Disorders: Headaches /Migraines 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 System Hx 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 Disorders: No Sexually Transmitted Disease: No HIV/AIDS: No 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 Genitourinary History of Genitourinary Disor: No Gastrointestinal History of Gastrointestinal Di: Yes Gastrointestinal Disorders: Chronic Constipation, Chronic Diarrhea Musculoskeletal History of Musculoskeletal Dis: Yes (chronic shoulder and neck pain) Endocrine History of Endocrine Disorders: Yes (STATES WAS DIABETIC, BUT NO LONGER) Endocrine Disorders: Diabetes, Non-Insulin dep HEENT History of HEENT Disorders: No Cancer History of Cancer: No Psychosocial History of Psychiatric Problem: Yes Behavioral Health Disorders: Anxiety, Depression Suicide Risk Score: 0 Integumentary History of Skin or Integumenta: No Blood Transfusions History of Blood Disorders: No Adverse Reaction to a Blood Tr: No Family Medical History Significant Family History: No Pertinent Family Hx Family Medial History: Cancer 03 MOTHER, Onset:66 (LUNG ) 09 BROTHER (LUNG ) Congestive heart failure 03 FATHER Physical Exam Vital Signs Vital Sign - Last 12Hours 03/22/17 18:14 Temp 98.2 Pulse 120 Resp 22 B/P (MAP) 154/111 (125) Pulse Ox 98 O2 Delivery Nasal Cannula O2 Flow Rate 3.00 Capillary Refill : Less Than 3 Seconds General Appearance: WD/WN, no apparent distress HEENT: PERRL/EOMI, normal ENT inspection, pharynx normal Neck: normal inspection Respiratory: accessory muscle use, No crackles, wheezing Cardiovascular: regular rate, rhythm, no edema, no murmur Gastrointestinal: non tender, soft Extremities: normal inspection, no pedal edema 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, no motor/sensory deficits, alert, normal mood/affect, oriented x 3 Skin: normal color, warm/dry Progress/Results/Core Measures Suspected Sepsis Recent Fever Within 48 Hours: No Infection Criteria Present: None New/Unexplained Altered Menta: No Sepsis Screen: No Definite Risk Sepsis Diagnosis: SIRS Temperature:98.2 Pulse: 120 Respiratory Rate: 22 Laboratory Tests 03/22/17 17:27: White Blood Count 9.6 Blood Pressure 154 /111 Mean: 125 Laboratory Tests 03/22/17 17:27: Creatinine 1.00, Platelet Count 232, Total Bilirubin 0.4 Results/Orders Lab Results Laboratory Tests Test 03/22/17 17:27 Range/Units White Blood Count 9.6 4.3-11.0 10^3/uL Red Blood Count 4.55 4.35-5.85 10^6/uL Hemoglobin 13.2 11.5-16.0 G/DL Hematocrit 39 35-52 % Mean Corpuscular Volume 86 80-99 FL Mean Corpuscular Hemoglobin 29 25-34 PG Mean Corpuscular Hemoglobin Concent 34 32-36 G/DL Red Cell Distribution Width 14.9 H 10.0-14.5 % Platelet Count 232 130-400 10^3/uL Mean Platelet Volume 10.6 H 7.4-10.4 FL Neutrophils (%) (Auto) 85 H 42-75 % Lymphocytes (%) (Auto) 11 L 12-44 % Monocytes (%) (Auto) 5 0-12 % Eosinophils (%) (Auto) 0 0-10 % Basophils (%) (Auto) 0 0-10 % Neutrophils # (Auto) 8.1 H 1.8-7.8 X 10^3 Lymphocytes # (Auto) 1.0 1.0-4.0 X 10^3 Monocytes # (Auto) 0.4 0.0-1.0 X 10^3 Eosinophils # (Auto) 0.0 0.0-0.3 10^3/uL Basophils # (Auto) 0.0 0.0-0.1 10^3/uL Sodium Level 140 135-145 MMOL/L Potassium Level 3.9 3.6-5.0 MMOL/L Chloride Level 108 H 98-107 MMOL/L Carbon Dioxide Level 19 L 21-32 MMOL/L Anion Gap 13 5-14 MMOL/L Blood Urea Nitrogen 10 7-18 MG/DL Creatinine 1.00 0.60-1.30 MG/DL Estimat Glomerular Filtration Rate 58 BUN/Creatinine Ratio 10 Glucose Level 279 H 70-105 MG/DL Calcium Level 9.5 8.5-10.1 MG/DL Total Bilirubin 0.4 0.1-1.0 MG/DL Aspartate Amino Transf (AST/SGOT) 17 5-34 U/L Alanine Aminotransferase (ALT/SGPT) 26 0-55 U/L Alkaline Phosphatase 93 40-136 U/L Total Protein 6.7 6.4-8.2 GM/DL Albumin 4.0 3.2-4.5 GM/DL My Orders Orders - TYLOR DURAN MD Cbc With Automated Diff (03/22/17 17:57) Comprehensive Metabolic Panel (03/22/17 17:57) Saline Lock/Iv-Start (03/22/17 17:57) Ns Iv 1000 Ml (Sodium Chloride 0.9%) (03/22/17 17:57) Albuterol Pre-Mix Nebs (Rt) (Proventil (03/22/17 17:57) Ipratropium 0.02% Neb Solution (Atrovent (03/22/17 18:00) Svn Sm Volume Nebulizer Rt-Rfs (03/22/17 17:57) Svn Sm Volume Nebulizer Rt-Rfs (03/22/17 17:57) Chest 1 View, Ap/Pa Only (03/22/17 18:07) Medications Given in ED Vital Signs/I&O Vital Sign - Last 12Hours 03/22/17 03/22/17 18:14 18:14 Temp 98.2 Pulse 120 Resp 22 B/P (MAP) 154/111 (125) Pulse Ox 98 O2 Delivery Nasal Cannula Nasal Cannula O2 Flow Rate 3.00 Capillary Refill : Less Than 3 Seconds Blood Pressure Mean: 125 Progress Note : Progress Note Patient received an hour-long nebulizer treatment. IV fluids were infused. Chest x-ray demonstrated no evidence of pneumonia. Toradol was administered for headache at patient's request. Diagnostic Imaging Diagonstic Imaging: Xray Plain Films/CT/US/NM/MRI: chest Comments Chest x-ray viewed by me and report reviewed. See report below: NAME: [facility] REC#: [id number] PT STATUS: ADM Farhat : 1965 PHYSICIAN: TYLOR DURAN MD ADMIT DATE: 03/22/17 Signed Date of Exam: 03/22/17 CHEST 1 VIEW, AP/PA ONLY INDICATION: Cough and shortness of breath and COPD. EXAMINATION: Frontal chest was obtained at 6:13 p.m. COMPARISON: 03/08/17. FINDINGS: There is cardiomegaly. There are chronic appearing increased interstitial markings which are similar to the prior study. There is some linear scarring or atelectasis at the left base which is also unchanged compared to the prior study. There is no pneumothorax. Lung bases are poorly seen due to technique. IMPRESSION: Cardiomegaly with chronic appearing increased interstitial markings and some left basilar scarring or atelectasis. Lung bases are not well-seen due to technique there is no acute change, however, compared with 03/08/2017. Dictated by: Dictated on workstation # [id number] Dict: 03/22/171824 Trans: 03/22/172024 Interpreted by: SERGIO NAVARRO MD Electronically signed by: SERGIO NAVARRO MD 03/22/172024 Departure Communication (Admissions) Time/Spoke to Admitting Phy: 19:[address] Cunningham Impression Impression: Primary Impression: COPD exacerbation Disposition: ADMITTED INPATIENT Condition: Improved Admissions Decision to Admit Reason: Admit from ER (General) Decision to Admit/Date: Mar 22, 2017 Time/Decision to Admit Time: 17:40 Departure-Patient Inst. Referrals: ALIZA CARTER (PCP) Primary Care Physician TYLOR DURAN MD Mar 22, 2017 20:02
[2017-03-22 20:30] VITALS: BP 151/91
[2017-03-22] MEDS ORDERED: KETOROLAC 30 MG/ML VIAL IVP ONE (20:45)
[2017-03-22] MEDS ORDERED: RT-ALBUTEROL SULF 2.5 MG/3 ML PRE-MIX VIAL IH PRN (21:30)
[2017-03-22] MEDS ORDERED: RT-ALBUTEROL/IPRATROPIUM 3 ML (DUONEB) VIAL IH SCH (22:00)
[2017-03-22] MEDS: RT-IPRATROPIUM (ATROVENT) 0.5MG/2.5ML AMP IH SCH (22:21)
[2017-03-22] MEDS: ZOLPIDEM 5 MG (AMBIEN) TAB PO SCH ×2 (22:35→23:50)
[2017-03-22] MEDS ORDERED: NICOTINE 21 MG (NICODERM) PATCH ONE (22:40)
[2017-03-22] MEDS: methylPREDNISolone 40 MG/ML (Solu-MEDROL) VIAL IV SCH (22:45)
[2017-03-23 00:02] VITALS: BP 140/76
[2017-03-23] MEDS: RT-IPRATROPIUM (ATROVENT) 0.5MG/2.5ML AMP IH SCH ×6 (01:44→23:45)
[2017-03-23] MEDS: IBUPROFEN 600 MG (MOTRIN) TAB PO PRN (02:18)
[2017-03-23] MEDS: methylPREDNISolone 40 MG/ML (Solu-MEDROL) VIAL IV SCH ×4 (03:58→22:10)
[2017-03-23 04:00] VITALS: BP 117/70
[2017-03-23] MEDS: inSUlin (REGULAR) HUMAN 1 UNIT/0.01 ML (CHARGE PER UNIT) SC SCH ×4 (07:36→20:38)
[2017-03-23 08:00] VITALS: BP 166/100
[2017-03-23] MEDS: NICOTINE 21 MG (NICODERM) PATCH TD SCH (08:51)
[2017-03-23] MEDS ORDERED: MELA5CAP PO (09:14)
[2017-03-23] MEDS ORDERED: ARIP15TA9 PO (09:25)
[2017-03-23] MEDS: ACETAMINOPHEN 500 MG TAB (TYLENOL) PO PRN (09:56)
--- NOTE | 2017-03-23 11:19 | History & Physicial (CHS) ---
HPI History of Present Illness: 52 yo F with known end stage COPD that presented to ER with worsening shortness of breath. States that she felt like she was dying because she could not catch her breath. Patient was diagnosed with Influenza A 3 weeks ago and treated with Tamiflu. Denies any sick contacts. Has been using oxygen 3-4 L at home which is her baseline. + increase in cough. Denies any fever or chills. 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 Patient continues to smoke 1/2 ppd. States today that she is sick of dealing with all of her breathing problems and just wants to give up. Source: patient, old records Exam Limitations: no limitations Date seen by provider: Mar 23, 2017 Time Seen by Provider: 10:45 Attending Physician Timothy Larios MD PCP Alondra Jacob Consult Date of Admission Mar 22, 2017 at 19:59 Home Medications Home Medications Reviewed patient Home Medication Reconciliation Form Allergies Coded Allergies: buspirone (Verified Allergy, Mild, 05/09/13) Made"legs Shaky" amlodipine (Verified Allergy, Unknown, 05/09/13) Anasarca SUB-Dwiznw-Frktla Hx Patient Social History Living Status: Lives at home alone Alcohol Use: Denies Use Recreational Drug Use: No Drug of Choice: +IV METH past hx Smoking Status: Current Everyday Smoker Type Used: Cigarettes 2nd Hand Smoke Exposure: Yes Recent Foreign Travel: No Contact w/other who traveled: No Recent Hopitalizations: No Recent Infectious Disease Expo: No Physical Abuse Screen: No Sexual Abuse: No Immunizations Up To Date Tetanus Booster (TDap): More than 5yrs Date of Pneumonia Vaccine: Dec 08, 2011 Date of Influenza Vaccine: Dec 31, 2016 Past Medical History Past Medical History 1. HTN 2. COPD 3. Tobaccoism 4.Chronic Migraines- with rebound headaches secondary to overuse of tylenol and ibuprofen 5. Anxiety 6. Depression 7. Endometrial hypertrophy 8. DM- II, pt. stopped taking her medications 9. HLP- with elevated triglycerides 10. Chronic Insomnia 11. Gastritis 12. Methamphetamine abuse with most recent drug screen in clinic 09/19 positive for methamphetamine 13. Several admissions for overdose of benzodiazapine Past Surgical History 1. EGD- Gastritis [place] 2. Colonoscopy- [place] Family Medical History Significant Family History: No Pertinent Family Hx Family History: Cancer 03 MOTHER, Onset:66 (LUNG ) 09 BROTHER (LUNG ) Congestive heart failure 03 FATHER Review of Systems (CHC) Constitutional: No chills, No fever, malaise EENTM: nose congestion Respiratory: cough, dyspnea on exertion, orthopnea, short of breath Cardiovascular: no symptoms reported, No chest pain, No edema, No palpitations Gastrointestinal: no symptoms reported, No abdominal pain, No constipation, No diarrhea, No nausea, No vomiting Genitourinary: no symptoms reported, No dysuria, No frequency, No hematuria Musculoskeletal: no symptoms reported Skin: no symptoms reported Psychiatric/Neurological: Anxiety Reviewed Test Results Reviewed Test Results Lab Laboratory Tests Test 03/22/17 17:27 03/23/17 07:06 03/23/17 10:32 Range/Units White Blood Count 9.6 4.3-11.0 10^3/uL Red Blood Count 4.55 4.35-5.85 10^6/uL Hemoglobin 13.2 11.5-16.0 G/DL Hematocrit 39 35-52 % Mean Corpuscular Volume 86 80-99 FL Mean Corpuscular Hemoglobin 29 25-34 PG Mean Corpuscular Hemoglobin Concent 34 32-36 G/DL Red Cell Distribution Width 14.9 H 10.0-14.5 % Platelet Count 232 130-400 10^3/uL Mean Platelet Volume 10.6 H 7.4-10.4 FL Neutrophils (%) (Auto) 85 H 42-75 % Lymphocytes (%) (Auto) 11 L 12-44 % Monocytes (%) (Auto) 5 0-12 % Eosinophils (%) (Auto) 0 0-10 % Basophils (%) (Auto) 0 0-10 % Neutrophils # (Auto) 8.1 H 1.8-7.8 X 10^3 Lymphocytes # (Auto) 1.0 1.0-4.0 X 10^3 Monocytes # (Auto) 0.4 0.0-1.0 X 10^3 Eosinophils # (Auto) 0.0 0.0-0.3 10^3/uL Basophils # (Auto) 0.0 0.0-0.1 10^3/uL Sodium Level 140 135-145 MMOL/L Potassium Level 3.9 3.6-5.0 MMOL/L Chloride Level 108 H 98-107 MMOL/L Carbon Dioxide Level 19 L 21-32 MMOL/L Anion Gap 13 5-14 MMOL/L Blood Urea Nitrogen 10 7-18 MG/DL Creatinine 1.00 0.60-1.30 MG/DL Estimat Glomerular Filtration Rate 58 BUN/Creatinine Ratio 10 Glucose Level 279 H 70-105 MG/DL Calcium Level 9.5 8.5-10.1 MG/DL Total Bilirubin 0.4 0.1-1.0 MG/DL Aspartate Amino Transf (AST/SGOT) 17 5-34 U/L Alanine Aminotransferase (ALT/SGPT) 26 0-55 U/L Alkaline Phosphatase 93 40-136 U/L Total Protein 6.7 6.4-8.2 GM/DL Albumin 4.0 3.2-4.5 GM/DL Glucometer 330 H 128 H 70-110 MG/DL Radiology Date of Exam: 03/22/17 CHEST 1 VIEW, AP/PA ONLY INDICATION: Cough and shortness of breath and COPD. EXAMINATION: Frontal chest was obtained at 6:13 p.m. COMPARISON: 03/08/17. FINDINGS: There is cardiomegaly. There are chronic appearing increased interstitial markings which are similar to the prior study. There is some linear scarring or atelectasis at the left base which is also unchanged compared to the prior study. There is no pneumothorax. Lung bases are poorly seen due to technique. IMPRESSION: Cardiomegaly with chronic appearing increased interstitial markings and some left basilar scarring or atelectasis. Lung bases are not well-seen due to technique there is no acute change, however, compared with 03/08/2017. Physical Exam-(CHC) Physical Exam Vital Signs VS - Last 72 Hours, by Label 03/22/17 03/22/17 03/22/17 03/22/17 18:14 18:14 20:30 20:30 Temp 98.2 98.9 Pulse 120 124 118 Resp 22 24 24 B/P (MAP) 154/111 (125) 151/91 (111) Pulse Ox 98 97 93 O2 Delivery Nasal Cannula Nasal Cannula Nasal Cannula Nasal Cannula O2 Flow Rate 3.00 3.00 2.00 03/22/17 03/22/17 03/23/17 03/23/17 20:55 22:22 00:02 01:45 Temp 98.1 Pulse 120 Resp 20 B/P (MAP) 140/76 (97) Pulse Ox 94 94 94 94 O2 Delivery Nasal Cannula Nasal Cannula Nasal Cannula Nasal Cannula O2 Flow Rate 2.00 2.00 2.00 2.00 03/23/17 03/23/17 03/23/17 03/23/17 04:00 07:29 08:00 09:56 Temp 98.2 99.2 98.2 Pulse 116 124 Resp 20 24 B/P (MAP) 117/70 (86) 166/100 (122) Pulse Ox 93 94 92 O2 Delivery Nasal Cannula Nasal Cannula Nasal Cannula O2 Flow Rate 2.00 2.00 2.00 Capillary Refill : Less Than 3 Seconds General Appearance: WD/WN, mild distress HEENT: PERRL/EOMI Neck: non-tender, full range of motion, supple Respiratory: chest non-tender, no accessory muscle use, No crackles, wheezing ( diffuse wheezing) Cardiovascular: normal peripheral pulses, regular rate, rhythm, no edema, no murmur Gastrointestinal: normal bowel sounds, non tender, soft Back: no CVA tenderness Extremities: normal range of motion, non-tender, no pedal edema, no calf tenderness 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, no motor/sensory deficits, alert, normal mood/affect, oriented x 3 Skin: normal color, warm/dry Lymphatic: no adenopathy Clinical Quality Measures DVT/VTE Risk/Contraindication: Risk Factor Score Per Nursin RFS Level Per Nursing on Admit: 4+=Very High Copy Copies To 1: TIMOTHY LARIOS MD Assessment/Plan Assessment/Plan Plan 52 yo F with known end stage COPD admitted for increasing shortness of breath COPD exacerbation - Started on IV steroids and antibiotics - RT with MAT protocol - Consult Dr Trivedi Anxiety - PRN Ativan - Continue home Cymbalta 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
[2017-03-23 12:00] VITALS: BP 145/90
[2017-03-23] MEDS: ENOXAPARIN 40 MG/0.4 ML (LOVENOX) SYR SC SCH (13:26)
[2017-03-23] MEDS: GABAPENTIN 300 MG (NEURONTIN) CAP PO SCH ×2 (13:26→20:10)
[2017-03-23] MEDS: LORazepam 1 MG (ATIVAN) TAB PO PRN ×2 (13:31→22:10)
[2017-03-23 16:00] VITALS: BP 153/98
[2017-03-23 20:00] VITALS: BP 139/87
[2017-03-23] MEDS: ZOLPIDEM 5 MG (AMBIEN) TAB PO SCH ×2 (20:10→22:10)
[2017-03-24] VITALS: BP 146/96
[2017-03-24] MEDS: ACETAMINOPHEN 500 MG TAB (TYLENOL) PO PRN (01:06)
[2017-03-24] MEDS: RT-IPRATROPIUM (ATROVENT) 0.5MG/2.5ML AMP IH SCH ×2 (04:30→07:07)
[2017-03-24] MEDS: methylPREDNISolone 40 MG/ML (Solu-MEDROL) VIAL IV SCH ×4 (04:30→22:51)
[2017-03-24] MEDS: IBUPROFEN 600 MG (MOTRIN) TAB PO PRN ×2 (04:30→13:03)
[2017-03-24 05:00] VITALS: BP 154/95
[2017-03-24] MEDS: inSUlin (REGULAR) HUMAN 1 UNIT/0.01 ML (CHARGE PER UNIT) SC SCH ×4 (05:40→20:10)
[2017-03-24 06:35] LABS: BASOPHILS % (AUTO) 0 % (0-10); EOSINOPHILS % (AUTO) 0 % (0-10); HEMATOCRIT 40 % (35-52); HEMOGLOBIN 13.2 G/DL (11.5-16.0); LYMPHOCYTES # (AUTO) 1.1 X 10^3 (1.0-4.0); LYMPHOCYTES % (AUTO) 9 % (12-44); MEAN CORPUSCULAR HEMOGLOBIN 29 PG (25-34); MEAN CORPUSCULAR HGB CONC 33 G/DL (32-36); MEAN CORPUSCULAR VOLUME 87 FL (80-99); MEAN PLATELET VOLUME 11.3 FL (7.4-10.4); MONOCYTES # (AUTO) 0.4 X 10^3 (0.0-1.0); MONOCYTES % (AUTO) 3 % (0-12); NEUTROPHILS # (AUTO) 10.7 X 10^3 (1.8-7.8); NEUTROPHILS % (AUTO) 88 % (42-75); PLATELET COUNT 279 10^3/uL (130-400); RED BLOOD COUNT 4.54 10^6/uL (4.35-5.85); RED CELL DISTRIBUTION WIDTH 15.3 % (10.0-14.5); WHITE BLOOD COUNT 12.2 10^3/uL (4.3-11.0)
[2017-03-24] MEDS: LORazepam 1 MG (ATIVAN) TAB PO PRN ×2 (06:36→20:10)
[2017-03-24 06:55] LABS: CARBON DIOXIDE 22 MMOL/L (21-32); CHLORIDE 103 MMOL/L (98-107); POTASSIUM 4.2 MMOL/L (3.6-5.0); SODIUM 136 MMOL/L (135-145)
[2017-03-24 06:56] LABS: BUN/CREATININE RATIO 24; CALCIUM 9.4 MG/DL (8.5-10.1); CREATININE SERUM 0.85 MG/DL (0.60-1.30); GFR ESTIMATED > 60; GLUCOSE 354 MG/DL (70-105)
[2017-03-24 08:00] VITALS: BP 132/92
[2017-03-24] MEDS: GABAPENTIN 300 MG (NEURONTIN) CAP PO SCH ×3 (09:03→20:10)
[2017-03-24] MEDS: NICOTINE 21 MG (NICODERM) PATCH TD SCH (09:03)
[2017-03-24] MEDS: ARIPIPRAZOLE 15 MG (ABILIFY) TAB PO SCH (09:03)
[2017-03-24] MEDS: DULoxetine 30 MG (CYMBALTA) CAP PO SCH (09:03)
--- NOTE | 2017-03-24 09:03 | Pulmonary Consultation ---
History of Present Illness History of Present Illness Date of Consultation 03/24/17 08:58 Time Seen by Provider: 08:58 Date of Admission History of Present Illness 52yo with hx of severe oxygen dependent 3-4 liters COPD and multiple hospitalizations she continues to smoke 1/2 pk/day presented secondary to worsening SOB and cough. Pt was dx with influenza A 3 wks ago and treated with Tamiflu. Denies current fever, Chills. I am consulted for pulmonary management. Allergies and Home Medications Allergies Coded Allergies: buspirone (Verified Allergy, Mild, 05/09/13) Made"legs Shaky" amlodipine (Verified Allergy, Unknown, 05/09/13) Anasarca Home Medications Albuterol Sulfate 18 Gm Hfa.aer.ad, 2 PUFF IH Q4H PRN for SHORTNESS OF BREATH, ( Reported) Aripiprazole 15 Mg Tablet, 15 MG PO DAILY, (Reported) Dulaglutide 0.75 Mg/0.5 Ml Pen.injctr, 0.75 MG SQ Th, (Reported) Duloxetine HCl 60 Mg Capsule.dr, 120 MG PO DAILY, (Reported) TAKES 2 (60MG) CAPSULES Fluticasone/Salmeterol 1 Each Blst.w.dev, 1 PUFF IH BID, (Reported) Gabapentin 300 Mg Capsule, 300 MG PO TID, (Reported) LAST FILLED #90 7-26-17 Ipratropium/Albuterol Sulfate 3 Ml Ampul.neb, 3 ML IH QID PRN for SHORTNESS OF BREATH, (Reported) Melatonin 5 Mg Capsule, 5 MG PO HS, (Reported) Multivitamin 1 Each Tablet, 1 TAB PO DAILY, (Reported) Tiotropium [place] 1 Inh Aerp, 1 CAP IH DAILY, (Reported) Topiramate 100 Mg Tablet, 100 MG PO BID, (Reported) Zolpidem Tartrate 6.25 Mg Tab.mphase, 6.25 MG PO HS, (Reported) Past Tdfctdp-Ifycra-Aagxnx Hx Patient Social History Alcohol Use: Denies Use Recreational Drug Use: No Drug of Choice: +IV METH past hx Smoking Status: Current Everyday Smoker Type Used: Cigarettes 2nd Hand Smoke Exposure: Yes Recent Foreign Travel: No Contact w/Someone Who Travel: No Recent Infectious Disease Expo: No Recent Hopitalizations: No Physical Abuse: No Sexual Abuse: No Immunizations Up To Date Tetanus Booster (TDap): More than 5yrs Date of Pneumonia Vaccine: Dec 08, 2011 Date of Influenza Vaccine: Dec 31, 2016 Seasonal Allergies Seasonal Allergies: No Surgeries History of Surgeries: No Respiratory History of Respiratory Disorde: Yes (O2 AT 2L/NC) Respiratory Disorders: Asthma, COPD Currently Using CPAP: Yes Currently Using BIPAP: No Cardiovascular History of Cardiac Disorders: Yes Cardiac Disorders: Hypertension Neurological History of Neurological Disord: Yes Neurological Disorders: Headaches /Migraines 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 System Hx 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 Disorders: No Sexually Transmitted Disease: No HIV/AIDS: No 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 Genitourinary History of Genitourinary Disor: No Gastrointestinal History of Gastrointestinal Di: Yes Gastrointestinal Disorders: Chronic Constipation, Chronic Diarrhea Musculoskeletal History of Musculoskeletal Dis: Yes (chronic shoulder and neck pain) Endocrine History of Endocrine Disorders: Yes (STATES WAS DIABETIC, BUT NO LONGER) Endocrine Disorders: Diabetes, Non-Insulin dep HEENT History of HEENT Disorders: No Cancer History of Cancer: No Psychosocial History of Psychiatric Problem: Yes Behavioral Health Disorders: Anxiety, Depression Suicide Risk Score: 0 Integumentary History of Skin or Integumenta: No Blood Transfusions History of Blood Disorders: No Adverse Reaction to a Blood Tr: No Family Medical History Significant Family History: No Pertinent Family Hx Family Medial History: Cancer 03 MOTHER, Onset:66 (LUNG ) 09 BROTHER (LUNG ) Congestive heart failure 03 FATHER Review of Systems Time Seen by Provider: 09:14 Constitutional: Fever, Chills, Sweats, Weakness, Malaise Eyes: No: Pain, Vision change, Conjunctivae inflammation, Eyelid inflammation, Other, Redness ENT: Nose discharge, No: Ear pain, Ear discharge, Nose pain, Nose congestion, Mouth pain, Mouth swelling, Throat pain, Throat swelling, Other Respiratory: Cough, Dry, Shortness of breath Cardiovascular: Chest Pain, Orthopnea Gastrointestinal: No: Nausea, Vomiting, Abdominal Pain, Diarrhea, Constipation , Melena, Hematochezia, Other Genitourinary: No Dysuria, No Frequency, No Incontinence, No Hematuria, No Retention, No Other Neurological: Weakness, Incoordination Exam Exam Vital Signs Date Time Temp Pulse Resp B/P (MAP) Pulse Ox O2 Delivery O2 Flow Rate FiO2 03/24/17 08:00 98.1 106 20 132/92 (105) 96 Nasal Cannula 2.00 03/24/17 07:20 104 25 96 35.00 03/24/17 07:08 93 Nasal Cannula 2.00 03/24/17 05:00 97.8 107 20 154/95 (114) 92 Nasal Cannula 2.00 03/24/17 00:00 98.2 104 20 146/96 (113) 91 Nasal Cannula 2.00 03/23/17 20:00 Nasal Cannula 2.00 03/23/17 20:00 98.5 112 24 139/87 (104) 95 Nasal Cannula 2.00 03/23/17 18:56 94 Room Air 03/23/17 16:00 99.8 111 22 153/98 (116) 95 Nasal Cannula 2.00 03/23/17 14:20 94 Nasal Cannula 2.00 03/23/17 12:00 99.3 111 24 145/90 (108) 97 Nasal Cannula 2.00 03/23/17 11:04 95 Nasal Cannula 2.00 03/23/17 10:30 98.2 03/23/17 09:56 98.2 I & O 03/24/17 07:00 Intake Total 2620 ml Balance 2620 ml General Appearance: Anxious, Moderate Distress (she feels better with BIPAP ), Obese HEENT: PERRL/EOMI, Pharynx Normal Neck: Full Range of Motion, Non Tender, Supple Respiratory: Accessory Muscle Use, Decreased Breath Sounds Cardiovascular: No Edema, No JVD, Tachycardia Capillary Refill: Less Than 3 Seconds Gastrointestinal: normal bowel sounds, non tender, soft Neurologic/Psychiatric: Alert, Oriented x3 Skin: Normal Color, Warm/Dry Lymphatic: No Adenopathy Results Lab Laboratory Tests 03/22/17 17:27 03/24/17 05:39 Assessment/Plan Assessment/Plan Acute on chronic respiratory failure -Pt is currently requiring BiPAP -Check Stat ABG - may need to transfer pt to ICU. add tele COPDAE oxygen dependent -SVNs Q 4 with xopenex (pt was refusing albuterol) add pulmicort -Solumedrol 40 Q 6 -BIPAP PRN DANETTE -Pt has BiPAP pulmonary edema -Monitor Acute on chronic respiratory failure Persistent tobacco use -education Obesity 255 Clinical Quality Measures DVT/VTE Risk/Contraindication: Risk Factor Score Per Nursin RFS Level Per Nursing on Admit: 4+=Very High WILLIAMS THOMAS DO Mar 24, 2017 09:03
[2017-03-24 09:52] LABS: ABG BASE EXCESS 0.3 MMOL/L (-2.5-2.5); ABG OXYGEN SATURATION 99 % (94-100); ABG PCO2 47 MMHG (35-45); ABG PH 7.35 (7.37-7.43); ABG PO2 108 MMHG (79-93); ABG TCO2 26.7 MMOL/L (21.0-31.0)
[2017-03-24 09:53] LABS: ALLENS TEST YES-POS; INSPIRED O2 35% BIPAP; PATIENT TEMP 98.4; VENTILATOR NO
[2017-03-24] MEDS: RT-LEVALBUTEROL (XOPENEX) 1.25 MG/3 ML NEB NON-FORMULARY INH SCH ×4 (10:32→23:23)
[2017-03-24] MEDS: UMECLIDINIUM BROMIDE (INCRUSE ELLIPTA) 7'S IH SCH (10:32)
[2017-03-24] MEDS ORDERED: KETOROLAC 30 MG/ML VIAL ONE (10:49)
[2017-03-24] MEDS ORDERED: KETOROLAC 60 MG/2 ML VIAL IM ONE (11:00)
[2017-03-24 12:00] VITALS: BP 140/89
[2017-03-24] MEDS ORDERED: RT-LEVALBUTEROL (XOPENEX) 1.25 MG/3 ML NEB NON-FORMULARY INH SCH (12:00)
[2017-03-24] MEDS: ENOXAPARIN 40 MG/0.4 ML (LOVENOX) SYR SC SCH (13:02)
[2017-03-24 16:24] VITALS: BP 141/89
[2017-03-24] MEDS ORDERED: NS (IVPB) 100 ML ONE (16:54)
[2017-03-24] MEDS: PROMETHAZINE INJ 25 MG/ML (PHENERGAN) AMP IVP PRN (17:27)
[2017-03-24 20:00] VITALS: BP 132/92
--- NOTE | 2017-03-24 20:34 | Progress Note (SOAP) ---
Subjective Subjective/Events-last exam Patient on Bipap this AM and seems more comfortable. States that she was able to get some rest with addition of ativan for her anxiety. Review of Systems Date Seen by Provider: Mar 24, 2017 Time Seen by Provider: 10:15 General: No Chills, Malaise Pulmonary: Dyspnea, Cough Cardiovascular: Palpitations, No: Chest Pain Gastrointestinal: Nausea, No: Vomiting Objective Exam Last Set of Vital Signs Vital Signs Date Time Temp Pulse Resp B/P (MAP) Pulse Ox O2 Delivery O2 Flow Rate FiO2 03/24/17 16:24 98.1 103 23 141/89 (106) 97 NIV Bilevel 2.00 Capillary Refill : Less Than 3 Seconds I&O Intake and Output 03/24/17 00:00 Intake Total 2540 ml Balance 2540 ml Intake Oral 2540 ml # Voids 19 # Bowel Movements 2 Daily Weight Change No General: Alert, Oriented X3, Mild Distress Lungs: Other (Tight, diffuse wheezing, mild increased work of breathing.) Heart: Regular Rate, No Murmurs Abdomen: Normal Bowel Sounds, Soft, No Tenderness Extremities: No Edema, No Tenderness/Swelling Results/Procedures Lab Laboratory Tests 03/24/17 05:16: Glucometer 288H 03/24/17 05:39: White Blood Count 12.2H, Red Blood Count 4.54, Hemoglobin 13.2, Hematocrit 40, Mean Corpuscular Volume 87, Mean Corpuscular Hemoglobin 29, Mean Corpuscular Hemoglobin Concent 33, Red Cell Distribution Width 15.3H, Platelet Count 279, Mean Platelet Volume 11.3H, Neutrophils (%) (Auto) 88H, Lymphocytes (%) (Auto) 9L, Monocytes (%) (Auto) 3, Eosinophils (%) (Auto) 0, Basophils (%) (Auto) 0, Neutrophils # (Auto) 10.7H, Lymphocytes # (Auto) 1.1, Monocytes # (Auto) 0.4, Eosinophils # (Auto) 0.0, Basophils # (Auto) 0.0, Sodium Level 136, Potassium Level 4.2, Chloride Level 103, Carbon Dioxide Level 22, Anion Gap 11, Blood Urea Nitrogen 20H, Creatinine 0.85, Estimat Glomerular Filtration Rate > 60, BUN /Creatinine Ratio 24, Glucose Level 354H, Calcium Level 9.4 03/24/17 09:45: Blood Gas Puncture Site L RADIAL, Blood Gas Patient Temperature 98.4, Arterial Blood pH 7.35L, Arterial Blood Partial Pressure CO2 47H, Arterial Blood Partial Pressure O2 108H, Arterial Blood HCO3 25, Arterial Blood Total CO2 26.7, Arterial Blood Oxygen Saturation 99, Arterial Blood Base Excess 0.3, Torsten Test YES-POS, Blood Gas Ventilator Setting NO, Blood Gas Inspired Oxygen 35% BIPAP 03/24/17 10:12: Glucometer 231H 03/24/17 14:20: Glucometer 349H 03/24/17 20:01: Glucometer 295H Radiology Date of Exam: 03/22/17 CHEST 1 VIEW, AP/PA ONLY INDICATION: Cough and shortness of breath and COPD. EXAMINATION: Frontal chest was obtained at 6:13 p.m. COMPARISON: 03/08/17. FINDINGS: There is cardiomegaly. There are chronic appearing increased interstitial markings which are similar to the prior study. There is some linear scarring or atelectasis at the left base which is also unchanged compared to the prior study. There is no pneumothorax. Lung bases are poorly seen due to technique. IMPRESSION: Cardiomegaly with chronic appearing increased interstitial markings and some left basilar scarring or atelectasis. Lung bases are not well-seen due to technique there is no acute change, however, compared with 03/08/2017. 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
[2017-03-24] MEDS: ZOLPIDEM 5 MG (AMBIEN) TAB PO SCH (22:55)
[2017-03-24] MEDS: RT-BUDESONIDE NEBS 0.5 MG/2ML (PULMICORT) AMP INH SCH (23:23)
[2017-03-25 00:53] VITALS: BP 146/88
[2017-03-25] MEDS: RT-LEVALBUTEROL (XOPENEX) 1.25 MG/3 ML NEB NON-FORMULARY INH SCH ×6 (02:47→23:19)
[2017-03-25] MEDS: PROMETHAZINE INJ 25 MG/ML (PHENERGAN) AMP IVP PRN (03:47)
[2017-03-25] MEDS: KETOROLAC 30 MG/ML VIAL IVP PRN ×2 (03:47→12:46)
[2017-03-25 04:34] VITALS: BP 141/87
[2017-03-25] MEDS: methylPREDNISolone 40 MG/ML (Solu-MEDROL) VIAL IV SCH ×3 (04:40→16:11)
[2017-03-25] MEDS: RT-BUDESONIDE NEBS 0.5 MG/2ML (PULMICORT) AMP INH SCH ×2 (06:12→19:11)
[2017-03-25 06:20] LABS: BASOPHILS % (AUTO) 0 % (0-10); EOSINOPHILS % (AUTO) 0 % (0-10); HEMATOCRIT 40 % (35-52); LYMPHOCYTES # (AUTO) 0.7 X 10^3 (1.0-4.0); LYMPHOCYTES % (AUTO) 6 % (12-44); MEAN CORPUSCULAR HEMOGLOBIN 29 PG (25-34); MEAN CORPUSCULAR HGB CONC 33 G/DL (32-36); MEAN CORPUSCULAR VOLUME 87 FL (80-99); MEAN PLATELET VOLUME 10.7 FL (7.4-10.4); MONOCYTES # (AUTO) 0.3 X 10^3 (0.0-1.0); MONOCYTES % (AUTO) 3 % (0-12); NEUTROPHILS # (AUTO) 10.2 X 10^3 (1.8-7.8); NEUTROPHILS % (AUTO) 91 % (42-75); PLATELET COUNT 217 10^3/uL (130-400); RED BLOOD COUNT 4.53 10^6/uL (4.35-5.85); RED CELL DISTRIBUTION WIDTH 14.7 % (10.0-14.5); WHITE BLOOD COUNT 11.2 10^3/uL (4.3-11.0)
[2017-03-25] MEDS: inSUlin (REGULAR) HUMAN 1 UNIT/0.01 ML (CHARGE PER UNIT) SC SCH ×4 (06:33→18:54)
[2017-03-25 06:37] LABS: CALCIUM 9.1 MG/DL (8.5-10.1); CREATININE SERUM 0.97 MG/DL (0.60-1.30); POTASSIUM 4.6 MMOL/L (3.6-5.0)
[2017-03-25] MEDS: LORazepam 1 MG (ATIVAN) TAB PO PRN ×2 (07:29→18:53)
[2017-03-25] MEDS: ARIPIPRAZOLE 15 MG (ABILIFY) TAB PO SCH (07:30)
[2017-03-25] MEDS: DULoxetine 30 MG (CYMBALTA) CAP PO SCH (07:30)
[2017-03-25] MEDS: GABAPENTIN 300 MG (NEURONTIN) CAP PO SCH ×3 (07:30→20:00)
[2017-03-25] MEDS: NICOTINE 21 MG (NICODERM) PATCH TD SCH (07:30)
[2017-03-25 08:00] VITALS: BP 135/82
--- NOTE | 2017-03-25 09:15 | Pulmonary Progress Note ---
Subjective Time Seen by Provider: 12:50 Subjective/Events-last exam No complications noted. Exam Exam Vital Signs Date Time Temp Pulse Resp B/P (MAP) Pulse Ox O2 Delivery O2 Flow Rate FiO2 03/25/17 07:00 98 03/25/17 06:12 85 17 97 30.00 03/25/17 04:34 97.9 94 16 141/87 (105) 93 NIV Bilevel 2.00 03/25/17 02:47 87 19 96 30.00 03/25/17 01:00 93 03/25/17 00:53 98.3 96 20 146/88 (107) 94 NIV Bilevel 03/24/17 23:30 94 19 95 30.00 03/24/17 23:23 94 19 95 30.00 03/24/17 20:00 NIV CPAP 03/24/17 20:00 98.6 104 20 132/92 (105) 90 NIV Bilevel 2.00 03/24/17 19:00 99 03/24/17 16:24 98.1 103 23 141/89 (106) 97 NIV Bilevel 2.00 03/24/17 13:22 96 23 96 30.00 03/24/17 13:00 98 03/24/17 12:00 98.2 96 24 140/89 (106) 98 Nasal Cannula 2.00 03/24/17 10:32 100 25 96 35.00 03/24/17 09:49 101 I & O 03/25/17 06:59 Intake Total 2298 ml Output Total 2350 ml Balance -52 ml General Appearance: Anxious, Moderate Distress (she feels better with BIPAP ), Obese HEENT: PERRL/EOMI, Pharynx Normal Neck: Full Range of Motion, Non Tender, Supple Respiratory: Accessory Muscle Use, Decreased Breath Sounds Cardiovascular: No Edema, No JVD, Tachycardia Capillary Refill: Less Than 3 Seconds Gastrointestinal: normal bowel sounds, non tender, soft Neurologic/Psychiatric: Alert, Oriented x3 Skin: Normal Color, Warm/Dry Lymphatic: No Adenopathy Results Lab Laboratory Tests 03/24/17 05:39 03/25/17 06:10 Assessment/Plan Assessment/Plan Acute on chronic respiratory failure - BiPAP PRN COPDAE oxygen dependent -SVNs Q 4 with xopenex (pt was refusing albuterol) add pulmicort -Solumedrol 40 Q 6 -BIPAP PRN DANETTE -Pt has BiPAP pulmonary edema -Monitor Acute on chronic respiratory failure Persistent tobacco use -education Obesity 232 Clinical Quality Measures DVT/VTE Risk/Contraindication: Risk Factor Score Per Nursin RFS Level Per Nursing on Admit: 4+=Very High WILLIAMS THOMAS DO Mar 25, 2017 09:15
[2017-03-25] MEDS: UMECLIDINIUM BROMIDE (INCRUSE ELLIPTA) 7'S IH SCH (10:31)
--- NOTE | 2017-03-25 11:08 | Progress Note (SOAP) ---
Subjective Subjective/Events-last exam Patient sitting up in bed. Patient states that she is feeling better. Denies any chest pain or palpitations. Review of Systems Date Seen by Provider: Mar 25, 2017 Time Seen by Provider: 10:05 Pulmonary: Dyspnea, Cough Cardiovascular: No: Chest Pain, Palpitations, Edema Gastrointestinal: Nausea Neurological: Other (Headache) Objective Exam Last Set of Vital Signs Vital Signs Date Time Temp Pulse Resp B/P (MAP) Pulse Ox O2 Delivery O2 Flow Rate FiO2 03/25/17 10:31 95 Nasal Cannula 3.00 03/25/17 08:00 98.2 95 16 135/82 (99) Capillary Refill : Less Than 3 Seconds I&O Intake and Output 03/25/17 00:00 Intake Total 2344 ml Output Total 1450 ml Balance 894 ml Intake Oral 2344 ml Output Urine Total 1450 ml # Voids 6 # Bowel Movements 1 General: Alert, Oriented X3, Cooperative, No Acute Distress HEENT: Mucous Memb Moist/[place] Lungs: Other (diffuse wheezing, no crackles) Heart: Regular Rate, No Murmurs Abdomen: Normal Bowel Sounds, Soft, No Tenderness, No Masses Extremities: No Edema, No Tenderness/Swelling Skin: No Rashes Results/Procedures Lab Laboratory Tests 03/24/17 14:20: Glucometer 349H 03/24/17 20:01: Glucometer 295H 03/25/17 05:26: Glucometer 304H 03/25/17 06:10: White Blood Count 11.2H, Red Blood Count 4.53, Hemoglobin 13.0, Hematocrit 40, Mean Corpuscular Volume 87, Mean Corpuscular Hemoglobin 29, Mean Corpuscular Hemoglobin Concent 33, Red Cell Distribution Width 14.7H, Platelet Count 217, Mean Platelet Volume 10.7H, Neutrophils (%) (Auto) 91H, Lymphocytes (%) (Auto) 6L, Monocytes (%) (Auto) 3, Eosinophils (%) (Auto) 0, Basophils (%) (Auto) 0, Neutrophils # (Auto) 10.2H, Lymphocytes # (Auto) 0.7L, Monocytes # (Auto) 0.3, Eosinophils # (Auto) 0.0, Basophils # (Auto) 0.0, Sodium Level 134L, Potassium Level 4.6, Chloride Level 101, Carbon Dioxide Level 24, Anion Gap 9, Blood Urea Nitrogen 26H, Creatinine 0.97, Estimat Glomerular Filtration Rate 60, BUN/ Creatinine Ratio 27, Glucose Level 316H, Calcium Level 9.1 03/25/17 09:37: Glucometer 386H Radiology Date of Exam: 03/22/17 CHEST 1 VIEW, AP/PA ONLY INDICATION: Cough and shortness of breath and COPD. EXAMINATION: Frontal chest was obtained at 6:13 p.m. COMPARISON: 03/08/17. FINDINGS: There is cardiomegaly. There are chronic appearing increased interstitial markings which are similar to the prior study. There is some linear scarring or atelectasis at the left base which is also unchanged compared to the prior study. There is no pneumothorax. Lung bases are poorly seen due to technique. IMPRESSION: Cardiomegaly with chronic appearing increased interstitial markings and some left basilar scarring or atelectasis. Lung bases are not well-seen due to technique there is no acute change, however, compared with 03/08/2017. 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
[2017-03-25 12:00] VITALS: BP 137/82
[2017-03-25] MEDS: ENOXAPARIN 40 MG/0.4 ML (LOVENOX) SYR SC SCH (12:46)
[2017-03-25] MEDS ORDERED: NS IV PRN (13:15)
[2017-03-25] MEDS ORDERED: PROMETHAZINE IV PRN (13:15)
[2017-03-25] MEDS: toPIRamate 100 MG (TOPAMAX) TAB PO SCH ×2 (13:33→20:00)
[2017-03-25 15:37] VITALS: BP 153/99
[2017-03-25] MEDS: RT-ADVAIR HFA 115/21 MCG PER PUFF IH SCH (19:11)
[2017-03-25] MEDS: ZOLPIDEM 5 MG (AMBIEN) TAB PO SCH (21:21)
[2017-03-26] VITALS: BP 150/98
[2017-03-26] MEDS: methylPREDNISolone 40 MG/ML (Solu-MEDROL) VIAL IV SCH ×3 (00:35→12:02)
[2017-03-26] MEDS: RT-LEVALBUTEROL (XOPENEX) 1.25 MG/3 ML NEB NON-FORMULARY INH SCH ×4 (02:43→14:33)
[2017-03-26] MEDS: ZOLPIDEM 5 MG (AMBIEN) TAB PO SCH (03:58)
[2017-03-26 04:00] VITALS: BP 149/99
[2017-03-26 06:33] LABS: BASOPHILS % (AUTO) 0 % (0-10); EOSINOPHILS % (AUTO) 0 % (0-10); HEMATOCRIT 38 % (35-52); HEMOGLOBIN 12.7 G/DL (11.5-16.0); LYMPHOCYTES # (AUTO) 0.6 X 10^3 (1.0-4.0); LYMPHOCYTES % (AUTO) 6 % (12-44); MEAN CORPUSCULAR HEMOGLOBIN 30 PG (25-34); MEAN CORPUSCULAR HGB CONC 34 G/DL (32-36); MEAN CORPUSCULAR VOLUME 88 FL (80-99); MEAN PLATELET VOLUME 11.1 FL (7.4-10.4); MONOCYTES # (AUTO) 0.4 X 10^3 (0.0-1.0); MONOCYTES % (AUTO) 4 % (0-12); NEUTROPHILS # (AUTO) 9.8 X 10^3 (1.8-7.8); NEUTROPHILS % (AUTO) 90 % (42-75); PLATELET COUNT 263 10^3/uL (130-400); RED BLOOD COUNT 4.31 10^6/uL (4.35-5.85); RED CELL DISTRIBUTION WIDTH 14.7 % (10.0-14.5); WHITE BLOOD COUNT 10.9 10^3/uL (4.3-11.0)
[2017-03-26 06:40] LABS: CALCIUM 9.1 MG/DL (8.5-10.1); CREATININE SERUM 1.07 MG/DL (0.60-1.30); POTASSIUM 4.5 MMOL/L (3.6-5.0)
[2017-03-26] MEDS: RT-BUDESONIDE NEBS 0.5 MG/2ML (PULMICORT) AMP INH SCH (06:44)
[2017-03-26] MEDS: RT-ADVAIR HFA 115/21 MCG PER PUFF IH SCH (06:44)
[2017-03-26] MEDS: UMECLIDINIUM BROMIDE (INCRUSE ELLIPTA) 7'S IH SCH (06:45)
[2017-03-26] MEDS: inSUlin (REGULAR) HUMAN 1 UNIT/0.01 ML (CHARGE PER UNIT) SC SCH ×3 (06:51→14:39)
[2017-03-26] MEDS: LORazepam 1 MG (ATIVAN) TAB PO PRN ×2 (06:55→15:18)
[2017-03-26 07:28] LABS: LYMPHOCYTES % (MANUAL) 7 %; MONOCYTES % (MANUAL) 2 %; NEUTROPHILS % (MANUAL) 91 %; RBC MORPH NORMAL
[2017-03-26 08:00] VITALS: BP 177/95
[2017-03-26] MEDS: GABAPENTIN 300 MG (NEURONTIN) CAP PO SCH ×2 (09:03→12:02)
[2017-03-26] MEDS: ARIPIPRAZOLE 15 MG (ABILIFY) TAB PO SCH (09:03)
[2017-03-26] MEDS: NICOTINE 21 MG (NICODERM) PATCH TD SCH (09:03)
[2017-03-26] MEDS: toPIRamate 100 MG (TOPAMAX) TAB PO SCH (09:03)
[2017-03-26] MEDS: DULoxetine 30 MG (CYMBALTA) CAP PO SCH (09:03)
[2017-03-26] MEDS: KETOROLAC 30 MG/ML VIAL IVP PRN (09:13)
--- NOTE | 2017-03-26 11:24 | Pulmonary Progress Note ---
Subjective Time Seen by Provider: 09:56 Subjective/Events-last exam C/o of SOB. Exam Exam Vital Signs Date Time Temp Pulse Resp B/P (MAP) Pulse Ox O2 Delivery O2 Flow Rate FiO2 03/26/17 11:04 96 Nasal Cannula 3.00 03/26/17 08:00 98.4 104 18 177/95 (122) 92 Nasal Cannula 3.00 03/26/17 07:00 92 03/26/17 06:46 92 Nasal Cannula 3.00 03/26/17 04:00 98.3 96 18 149/99 (116) 94 NIV Bilevel 2.00 03/26/17 02:45 105 20 90 30.00 03/26/17 01:00 93 03/26/17 00:00 98.1 100 18 150/98 (115) 95 NIV Bilevel 2.00 03/25/17 23:19 94 21 88 30.00 03/25/17 20:00 99.1 96 20 95 Nasal Cannula 3.00 03/25/17 20:00 NIV CPAP 30.00 03/25/17 19:11 95 23 97 30.00 03/25/17 19:11 95 23 97 30.00 03/25/17 19:00 77 03/25/17 15:37 99.0 98 19 153/99 (117) 94 Nasal Cannula 3.00 03/25/17 13:14 95 Nasal Cannula 3.00 03/25/17 13:00 107 03/25/17 12:00 98.4 97 18 137/82 (100) 93 Nasal Cannula 3.00 I & O 03/26/17 07:00 Intake Total 3252 ml Output Total 5600 ml Balance -2348 ml General Appearance: Anxious, Moderate Distress (she feels better with BIPAP ), Obese HEENT: PERRL/EOMI, Pharynx Normal Neck: Full Range of Motion, Non Tender, Supple Respiratory: Accessory Muscle Use, Decreased Breath Sounds Cardiovascular: No Edema, No JVD, Tachycardia Capillary Refill: Less Than 3 Seconds Gastrointestinal: normal bowel sounds, non tender, soft Neurologic/Psychiatric: Alert, Oriented x3 Skin: Normal Color, Warm/Dry Lymphatic: No Adenopathy Results Lab Laboratory Tests 03/25/17 06:10 03/26/17 05:28 Assessment/Plan Assessment/Plan cute on chronic respiratory failure - BiPAP PRN COPDAE oxygen dependent -SVNs Q 4 with xopenex add pulmicort -Solumedrol 40 Q 6 -BIPAP PRN DANETTE -Pt has BiPAP pulmonary edema -Monitor Acute on chronic respiratory failure Persistent tobacco use -education Obesity 232 Clinical Quality Measures DVT/VTE Risk/Contraindication: Risk Factor Score Per Nursin RFS Level Per Nursing on Admit: 4+=Very High WILLIAMS THOMAS DO Mar 26, 2017 11:24
[2017-03-26 12:00] VITALS: BP 142/89
[2017-03-26] MEDS: ENOXAPARIN 40 MG/0.4 ML (LOVENOX) SYR SC SCH (12:02)
--- NOTE | 2017-03-26 14:16 | Discharge Summary ---
Diagnosis/Chief Complaint Date of Admission Mar 22, 2017 at 20:55 Date of Discharge Chief Complaint/HPI Chief Complaint/HPI 52 yo F with known end stage COPD that presented to ER with worsening shortness of breath. States that she felt like she was dying because she could not catch her breath. Patient was diagnosed with Influenza A 3 weeks ago and treated with Tamiflu. Denies any sick contacts. Has been using oxygen 3-4 L at home which is her baseline. + increase in cough. Denies any fever or chills. 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 Patient continues to smoke 1/2 ppd. States today that she is sick of dealing with all of her breathing problems and just wants to give up. Discharge Summary-Simple/Stand Consultations Discharge Physical Examination Allergies: Coded Allergies: buspirone (Verified Allergy, Mild, 05/09/13) Made"legs Shaky" amlodipine (Verified Allergy, Unknown, 05/09/13) Anasarca Vitals & I&Os Vital Sign - Last 12Hours Date Time Temp Pulse Resp B/P (MAP) Pulse Ox O2 Delivery O2 Flow Rate FiO2 03/26/17 11:04 96 Nasal Cannula 3.00 03/26/17 08:00 98.4 104 18 177/95 (122) Intake and Output 03/26/17 00:00 Intake Total 2742 ml Output Total 2900 ml Balance -158 ml Hospital Course See final discharge diagnosis. Radiology Reviewed Date of Exam: 03/22/17 CHEST 1 VIEW, AP/PA ONLY INDICATION: Cough and shortness of breath and COPD. EXAMINATION: Frontal chest was obtained at 6:13 p.m. COMPARISON: 03/08/17. FINDINGS: There is cardiomegaly. There are chronic appearing increased interstitial markings which are similar to the prior study. There is some linear scarring or atelectasis at the left base which is also unchanged compared to the prior study. There is no pneumothorax. Lung bases are poorly seen due to technique. IMPRESSION: Cardiomegaly with chronic appearing increased interstitial markings and some left basilar scarring or atelectasis. Lung bases are not well-seen due to technique there is no acute change, however, compared with 03/08/2017. Discharge Instructions to patient/family Please see electronic discharge instructions given to patient. Discharge Medications Reviewed and agree with Discharge Medication list on patient's Discharge Instruction sheet Clinical Quality Measures DVT/VTE Risk/Contraindication: Risk Factor Score Per Nursin RFS Level Per Nursing on Admit: 4+=Very High TIMOTHY LARIOS MD Mar 26, 2017 14:16
--- NOTE | 2017-03-26 14:47 | Discharge Summary ---
Diagnosis/Chief Complaint Date of Admission Mar 22, 2017 at 20:55 Date of Discharge Chief Complaint/HPI Chief Complaint/HPI 52 yo F with known end stage COPD that presented to ER with worsening shortness of breath. States that she felt like she was dying because she could not catch her breath. Patient was diagnosed with Influenza A 3 weeks ago and treated with Tamiflu. Denies any sick contacts. Has been using oxygen 3-4 L at home which is her baseline. + increase in cough. Denies any fever or chills. 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 Patient continues to smoke 1/2 ppd. States today that she is sick of dealing with all of her breathing problems and just wants to give up. Discharge Summary-Simple/Stand Consultations Discharge Physical Examination Allergies: Coded Allergies: buspirone (Verified Allergy, Mild, 05/09/13) Made"legs Shaky" amlodipine (Verified Allergy, Unknown, 05/09/13) Anasarca Vitals & I&Os Vital Sign - Last 12Hours Date Time Temp Pulse Resp B/P (MAP) Pulse Ox O2 Delivery O2 Flow Rate FiO2 03/26/17 14:35 95 Nasal Cannula 3.00 03/26/17 12:00 99.2 116 20 142/89 (106) Intake and Output 03/25/17 23:59 Intake Total 2742 ml Output Total 2900 ml Balance -158 ml Hospital Course See final discharge diagnosis. Radiology Reviewed Date of Exam: 03/22/17 CHEST 1 VIEW, AP/PA ONLY INDICATION: Cough and shortness of breath and COPD. EXAMINATION: Frontal chest was obtained at 6:13 p.m. COMPARISON: 03/08/17. FINDINGS: There is cardiomegaly. There are chronic appearing increased interstitial markings which are similar to the prior study. There is some linear scarring or atelectasis at the left base which is also unchanged compared to the prior study. There is no pneumothorax. Lung bases are poorly seen due to technique. IMPRESSION: Cardiomegaly with chronic appearing increased interstitial markings and some left basilar scarring or atelectasis. Lung bases are not well-seen due to technique there is no acute change, however, compared with 03/08/2017. Discharge Instructions to patient/family Please see electronic discharge instructions given to patient. Discharge Medications Reviewed and agree with Discharge Medication list on patient's Discharge Instruction sheet Clinical Quality Measures DVT/VTE Risk/Contraindication: Risk Factor Score Per Nursin RFS Level Per Nursing on Admit: 4+=Very High TIMOTHY LARIOS MD Mar 26, 2017 14:47
[2017-03-26] MEDS ORDERED: LEVA1.2516 INH (14:50)
[2017-03-26] MEDS ORDERED: PRD20T PO (14:50)
--- NOTE | 2017-03-26 14:52 | Discharge Instructions ---
Discharge Inst-[facility] Discharge Medications New, Converted or Re-Newed RX: Transmitted to Pharmacy New Medications: Prednisone (Prednisone) 20 Mg Tab 20 MG PO DAILY, #22 TAB Take 3 tabs(60mg)daily,decrease by 1/2 tab(10mg)every other day. Levalbuterol HCl (Levalbuterol HCl) 1.25 Mg/3 Ml Vial.neb 1.25 MG INH RTQ4HR, #1 INHALER Continued Medications: Aripiprazole (Aripiprazole) 15 Mg Tablet 15 MG PO DAILY, TAB Dulaglutide (Trulicity) 0.75 Mg/0.5 Ml Pen.injctr 0.75 MG SQ Th, VIAL Duloxetine HCl (Cymbalta) 60 Mg Capsule.dr 120 MG PO DAILY, CAP TAKES 2 (60MG) CAPSULES Fluticasone/Salmeterol (Advair 250-50 Diskus) 1 Each Blst.w.dev 1 PUFF IH BID, INHALER Gabapentin (Gabapentin) 300 Mg Capsule 300 MG PO TID, CAP LAST FILLED #90 10-01-16 Ipratropium/Albuterol Sulfate (Iprat-Albut 0.5-3(2.5) mg/3 ml) 3 Ml Ampul.neb 3 ML IH QID PRN for SHORTNESS OF BREATH, EA Melatonin (Melatonin) 5 Mg Capsule 5 MG PO HS, CAP Multivitamin (Multivitamins) 1 Each Tablet 1 TAB PO DAILY, TAB Tiotropium Sharon (Spiriva) 1 Inh Aerp 1 CAP IH DAILY, INHALER Topiramate (Topiramate) 100 Mg Tablet 100 MG PO BID, TAB Zolpidem Tartrate (Zolpidem Tartrate ER) 6.25 Mg Tab.mphase 6.25 MG PO HS, TAB Discontinued Medications: Albuterol Sulfate (Ventolin Hfa) 18 Gm Hfa.aer.ad 2 PUFF IH Q4H PRN for SHORTNESS OF BREATH, INHALER Patient Instructions Goal/Follow Up Appt: You have a follow up appt with Alondra Jacob on Apr 01 @ 120PM for your hospital follow up appt Patient Instructions: - Make sure you start your steroids - DO NOT SMOKE Activity & Diet Discharge Diet: ADA Diet Activity as Tolerated: Yes Copy Copies [facility] 1[facility] MD Mar 26, 2017 14:52
[2017-03-26 15:35] VITALS: BP 158/88
--- NOTE | 2017-03-27 12:06 | Physician Query Clarification ---
PQ-Present on Admission Admission/Discharge Admission Date: Mar 22, 2017 at 20:55 Discharge Date: Mar 26, 2017 at 15:35 Question: Acute respiratory failure was documented in Dr. Trivedi's consult. Can you specify if this condition was present on admission? Please document a response below. PHYSICIAN RESPONSE Condition was Present on Admit: Yes In responding to this query, please exercise your independent professional judgment. The purpose of this communication is to more accurately reflect the complexity of your patients condition. The fact that a question is asked does not imply that any particular answer is desired or expected. Thank you for your timely response to this clarification. Requestors name: Darrell THIS PHYSICIAN QUERY FORM IS A PERMANENT PART OF THE MEDICAL RECORD DARRELL ENGLE Mar 27, 2017 12:06 TIMOTHY LARIOS MD Mar 27, 2017 15:20
== END 2017-03-26 15:35 | disposition home or self-care (01) | DRG 189 ==
LOC: EDUNIT# 17:29 → ER 17:30 → 4TH 19:59 → UNDOADMOB 19:59 → OBSVTOIN 20:55 → INTOOBSV 20:55 → 4TH 20:55 → UNDODISIN 03-26 15:35
PROVIDERS: ADMIT Family Medicine; ATTEND Family Medicine
DX: J96.20 Acute and chronic respiratory failure, unspecified whether with hypoxia or hypercapnia (principal); J44.1 Chronic obstructive pulmonary disease with (acute) exacerbation; J81.1 Chronic pulmonary edema; F17.210 Nicotine dependence, cigarettes, uncomplicated; I10 Essential (primary) hypertension; F41.9 Anxiety disorder, unspecified; E88.81 Metabolic syndrome and other insulin resistance; G47.33 Obstructive sleep apnea (adult) (pediatric); E66.9 Obesity, unspecified; Z99.81 Dependence on supplemental oxygen; Z68.38 Body mass index [BMI] 38.0-38.9, adult; T38.0X5A Adverse effect of glucocorticoids and synthetic analogues, initial encounter
CPT/HCPCS: 36415; 71045; 80048; 80053; 82805; 82962; 85007; 85025; 85027; 94640; 94660; 94664; 94760; 96360

== ENCOUNTER 2017-04-29 12:24 | Observation (INO) | payer SELFPAY ==
[~2017-04-29] VITALS: Ht 172.7 cm; Wt 111.3 kg
[~2017-04-29 12:24] MED LIST changes: +ARIP15TA9 PO; +LEVA1.2516 INH; +MELA5CAP PO
[2017-04-29] MEDS ORDERED: POTASSIUM CHLORIDE INJ 20 MEQ in NS IV 1000 ML 1,000 ML IV ONE (12:45)
[2017-04-29] MEDS ORDERED: RT-ALBUTEROL SULF 2.5 MG/3 ML PRE-MIX VIAL INH PRN (12:45)
[2017-04-29 13:00] VITALS: BP 139/86
[2017-04-29] MEDS ORDERED: CATHETER FLUSH 10 ML SYR IV PRN ×2 (13:00)
[2017-04-29 13:29] LABS: BILIRUBIN,URINE NEGATIVE (NEGATIVE); CLARITY,URINE CLEAR; COLOR,URINE YELLOW; GLUCOSE, URINE (UA) NEGATIVE (NEGATIVE); KETONES,URINE NEGATIVE (NEGATIVE); LEUKOCYTE ESTERASE ,URINE 1+ (NEGATIVE); NITRITE,URINE NEGATIVE (NEGATIVE); PH,URINE 6 (5-9); PROTEIN,URINE 2+ (NEGATIVE); UROBILINOGEN,URINE NORMAL (NORMAL)
[2017-04-29] MEDS: PROMETHAZINE INJ 25 MG/ML (PHENERGAN) AMP IVP PRN ×2 (13:36→18:58)
[2017-04-29] MEDS ORDERED: RT-ALBUINH IH (13:37)
[2017-04-29 13:43] LABS: AMPHETAMINE SCREEN, URINE NEGATIVE (NEGATIVE); BARBITURATE SCREEN URINE NEGATIVE (NEGATIVE); BENZODIAZEPINES SCREEN URINE NEGATIVE (NEGATIVE); CANNABINOID SCREEN, URINE NEGATIVE (NEGATIVE); COCAINE SCREEN URINE NEGATIVE (NEGATIVE); METHADONE STAT NEGATIVE (NEGATIVE); METHAMPHETAMINE SCREEN URINE S NEGATIVE (NEGATIVE); OPIATE SCREEN URINE POSITIVE (NEGATIVE); OXYCODONE STAT NEGATIVE (NEGATIVE); PROPOXYPHENE STAT NEGATIVE (NEGATIVE); TRICYCLIC ANTIDEPRESSANTS SCRE NEGATIVE (NEGATIVE)
[2017-04-29] MEDS ORDERED: PRD20T PO (13:46)
[2017-04-29] MEDS ORDERED: METO-333 PO (13:46)
[2017-04-29] MEDS ORDERED: LEVO500T2 PO (13:46)
[2017-04-29] MEDS ORDERED: GLIM1TAB PO (13:46)
[2017-04-29 13:51] LABS: BACTERIA,URINE FEW /HPF
[2017-04-29] MEDS ORDERED: methylPREDNISolone 40 MG/ML (Solu-MEDROL) VIAL IV SCH (14:15)
[2017-04-29] MEDS ORDERED: RT-ALBUTEROL/IPRATROPIUM 3 ML (DUONEB) VIAL IH PRN (14:15)
[2017-04-29] MEDS ORDERED: NON-FORMULARY MEDICATION 1 EA EA (Zolpidem Tartrate (Zolpidem Tartrate ER) 6.25 MG) PO PRN (14:15)
[2017-04-29] MEDS: RT-ALBUTEROL/IPRATROPIUM 3 ML (DUONEB) VIAL INH SCH ×3 (14:27→23:35)
[2017-04-29 14:34] LABS: BASOPHILS % (AUTO) 0 % (0-10); EOSINOPHILS % (AUTO) 0 % (0-10); HEMATOCRIT 43 % (35-52); HEMOGLOBIN 14.3 G/DL (11.5-16.0); LYMPHOCYTES # (AUTO) 0.8 X 10^3 (1.0-4.0); LYMPHOCYTES % (AUTO) 8 % (12-44); MEAN CORPUSCULAR HEMOGLOBIN 29 PG (25-34); MEAN CORPUSCULAR HGB CONC 34 G/DL (32-36); MEAN CORPUSCULAR VOLUME 87 FL (80-99); MEAN PLATELET VOLUME 10.6 FL (7.4-10.4); MONOCYTES # (AUTO) 0.1 X 10^3 (0.0-1.0); MONOCYTES % (AUTO) 1 % (0-12); NEUTROPHILS # (AUTO) 9.1 X 10^3 (1.8-7.8); NEUTROPHILS % (AUTO) 91 % (42-75); PLATELET COUNT 302 10^3/uL (130-400); RED CELL DISTRIBUTION WIDTH 14.2 % (10.0-14.5)
[2017-04-29 14:49] LABS: BUN/CREATININE RATIO 6; CARBON DIOXIDE 19 MMOL/L (21-32); CHLORIDE 107 MMOL/L (98-107); GFR ESTIMATED > 60; GLUCOSE 293 MG/DL (70-105); MAGNESIUM 1.4 MG/DL (1.8-2.4); POTASSIUM 3.2 MMOL/L (3.6-5.0); SODIUM 140 MMOL/L (135-145)
[2017-04-29] MEDS: methylPREDNISolone 125 MG (Solu-MEDROL) VIAL IV SCH ×2 (14:51→18:54)
--- NOTE | 2017-04-29 14:53 | Diagnostic Imaging Report ---
INDICATION: Shortness of breath and COPD. TIME OF EXAMINATION: 02:35 p.m. COMPARISON: Correlation is made with prior study from 03/22/2017. FINDINGS: The heart size is stable. Residual atelectasis or scarring in the left is noted. The right lung is clear. No effusion or pneumothorax is seen. IMPRESSION: Stable chest. No acute feature is detected. Dictated by: Dictated on workstation # [id number]
[2017-04-29] MEDS: inSUlin ASPART (NovoLOG) 1 UNIT/0.01 ML (CHARGE PER UNIT) SC SCH ×3 (14:59→21:44)
[2017-04-29 15:05] LABS: BAND NEUTROPHILS 2 %; BASOPHILS % (MANUAL) 0 %; EOSINOPHILS % (MANUAL) 0 %; LYMPHOCYTES % (MANUAL) 11 %; MONOCYTES % (MANUAL) 2 %; NEUTROPHILS % (MANUAL) 85 %; RBC MORPH NORMAL
[2017-04-29] MEDS: ONDANSETRON 4 MG/2 ML (SDV) Z0FRAN IVP PRN (15:10)
[2017-04-29] MEDS: NICOTINE 14 MG (NICODERM) PATCH TD SCH (15:59)
[2017-04-29] MEDS: NICOTINE PATCH REMOVAL TP SCH (15:59)
[2017-04-29 16:00] VITALS: BP 130/83
[2017-04-29] MEDS ORDERED: DIMETAPP DM PO PRN (18:30)
[2017-04-29] MEDS: RT-ADVAIR HFA 115/21 MCG PER PUFF IH SCH (18:31)
[2017-04-29] MEDS: KETOROLAC 30 MG/ML VIAL IVP PRN (18:53)
[2017-04-29 20:00] VITALS: BP 139/84
[2017-04-29] MEDS ORDERED: NON-FORMULARY MEDICATION 1 EA EA (Fluticasone/Salmeterol (Advair 250-50 Diskus) 1 PUFF) IH SCH (21:00)
[2017-04-29] MEDS ORDERED: NON-FORMULARY MEDICATION 1 EA EA (Melatonin 5 MG) PO SCH (21:00)
[2017-04-29] MEDS: GABAPENTIN 300 MG (NEURONTIN) CAP PO SCH (21:14)
[2017-04-29] MEDS: MELATONIN 3 MG TABLET PO SCH (21:14)
[2017-04-29] MEDS: toPIRamate 100 MG (TOPAMAX) TAB PO SCH (21:14)
[2017-04-29] MEDS: ZOLPIDEM 5 MG (AMBIEN) TAB PO PRN (21:14)
[2017-04-29] MEDS: meTOprolol TARTRATE 25 MG (LOPRESSOR) TABLET PO SCH (21:14)
[2017-04-30] VITALS (7 sets, daily range): BP systolic 113–149; BP diastolic 55–82
[2017-04-30] MEDS: methylPREDNISolone 125 MG (Solu-MEDROL) VIAL IV SCH ×3 (00:25→13:16)
[2017-04-30] MEDS: ONDANSETRON 4 MG/2 ML (SDV) Z0FRAN IVP PRN ×3 (00:25→20:22)
[2017-04-30] MEDS: RT-ALBUTEROL/IPRATROPIUM 3 ML (DUONEB) VIAL INH SCH ×6 (02:08→23:01)
[2017-04-30] MEDS: KETOROLAC 30 MG/ML VIAL IVP PRN ×2 (03:36→15:21)
[2017-04-30] MEDS: inSUlin ASPART (NovoLOG) 1 UNIT/0.01 ML (CHARGE PER UNIT) SC SCH ×4 (06:15→21:48)
[2017-04-30] MEDS: MULTIVIT W/MINERALS TAB (THERAGRAN M) PO SCH (06:15)
[2017-04-30 06:17] LABS: BASOPHILS % (AUTO) 0 % (0-10); EOSINOPHILS % (AUTO) 0 % (0-10); HEMATOCRIT 37 % (35-52); HEMOGLOBIN 12.3 G/DL (11.5-16.0); LYMPHOCYTES % (AUTO) 6 % (12-44); MEAN CORPUSCULAR HEMOGLOBIN 30 PG (25-34); MEAN CORPUSCULAR HGB CONC 34 G/DL (32-36); MEAN CORPUSCULAR VOLUME 88 FL (80-99); MEAN PLATELET VOLUME 11.4 FL (7.4-10.4); MONOCYTES # (AUTO) 0.4 X 10^3 (0.0-1.0); MONOCYTES % (AUTO) 2 % (0-12); NEUTROPHILS # (AUTO) 16.1 X 10^3 (1.8-7.8); NEUTROPHILS % (AUTO) 92 % (42-75); PLATELET COUNT 262 10^3/uL (130-400); RED BLOOD COUNT 4.16 10^6/uL (4.35-5.85); RED CELL DISTRIBUTION WIDTH 14.1 % (10.0-14.5); WHITE BLOOD COUNT 17.5 10^3/uL (4.3-11.0)
[2017-04-30 06:36] LABS: BAND NEUTROPHILS 4 %; BASOPHILS % (MANUAL) 0 %; EOSINOPHILS % (MANUAL) 0 %; LYMPHOCYTES % (MANUAL) 5 %; MONOCYTES % (MANUAL) 1 %; NEUTROPHILS % (MANUAL) 89 %; RBC MORPH NORMAL; REACTIVE LYMPHOCYTES 1 %
[2017-04-30 06:50] LABS: CALCIUM 8.9 MG/DL (8.5-10.1); MAGNESIUM 1.4 MG/DL (1.8-2.4); POTASSIUM 3.5 MMOL/L (3.6-5.0)
[2017-04-30] MEDS: RT-ADVAIR HFA 115/21 MCG PER PUFF IH SCH ×2 (07:00→18:34)
[2017-04-30] MEDS: UMECLIDINIUM BROMIDE (INCRUSE ELLIPTA) 7'S IH SCH (07:03)
--- NOTE | 2017-04-30 07:33 | Pulmonary Consultation ---
History of Present Illness History of Present Illness Date of Consultation 04/30/17 07:30 Time Seen by Provider: 06:00 Date of Admission History of Present Illness 52yo with hx of severe oxygen dependent COPD and multiple hospitalizations presented to ED secondary to worsening SOB. She also had n/v over the last 2 days. She has had mulitple episodes of COPDAE and has a hx of tobacco use. Pt was placed on Levaquin and Prednisone as an out patient however she continued to worsen. I am consulted for pulmonary management. Pt denies sick contacts. Allergies and Home Medications Allergies Coded Allergies: buspirone (Verified Allergy, Mild, 05/02/17) Made"legs Shaky" amitriptyline (Verified Allergy, Unknown, 05/02/17) " MAKES ME DO WEIRD THINGS LIKE WALK IN MY SLEEP AND HAVE HALLUCINATIONS." Home Medications Albuterol Sulfate 1 Puff Puff, 2 PUFF IH Q4H PRN for SHORTNESS OF BREATH, ( Reported) 1 PUFF = 90 MCG Aripiprazole 15 Mg Tablet, 15 MG PO DAILY, (Reported) Dulaglutide 0.75 Mg/0.5 Ml Pen.injctr, 0.75 MG SQ Th, (Reported) Duloxetine HCl 60 Mg Capsule.dr, 120 MG PO DAILY, (Reported) TAKES 2 (60MG) CAPSULES Fluconazole 100 Mg Tablet, 200 MG PO DAILY for 13 Days, #26 Ref 0 Prescribed by: JAISON NORWOOD on 05/05/17 0910 Fluticasone/Salmeterol 1 Each Blst.w.dev, 1 PUFF IH BID, (Reported) Gabapentin 300 Mg Capsule, 300 MG PO TID, (Reported) Glimepiride 1 Mg Tablet, 1 MG PO DAILY PRN for WHEN TAKING PREDNISONE, (Reported ) Ipratropium/Albuterol Sulfate 3 Ml Ampul.neb, 3 ML IH QID PRN for SHORTNESS OF BREATH, (Reported) Melatonin 5 Mg Capsule, 5 MG PO HS, (Reported) Metoprolol Tartrate 25 Mg Tablet, 12.5 MG PO BID, (Reported) TAKES 1/2 (25MG) TABLET Multivitamin 1 Each Tablet, 1 TAB PO DAILY, (Reported) Pantoprazole Sodium 40 Mg Tablet.dr, 40 MG PO BID for 30 Days, #60 Ref 0 Prescribed by: JAISON NORWOOD on 05/05/17 0910 Prednisone 10 Mg Tab, 0 PO UD, #6 Ref 0 Take 3 tabs (30mg) daily, decrease by 1 tab (10mg) daily. Prescribed by: JAISON NORWOOD on 05/05/17 0910 Sucralfate 1 Gm Tablet, 1 GM PO ACHS, #120 Ref 0 Prescribed by: JAISON NORWOOD on 05/05/17 0910 Tiotropium [place] 1 Inh Aerp, 1 CAP IH DAILY, (Reported) Topiramate 100 Mg Tablet, 100 MG PO BID, (Reported) LAST FILLED #60 02-06-17 Zolpidem Tartrate 6.25 Mg Tab.mphase, 6.25 MG PO HS PRN for SLEEP, (Reported) LAST FILLED #15 03-17-17 Past Poypdqh-Bnlnml-Otzswu Hx Patient Social History Alcohol Use: Denies Use Recreational Drug Use: No (4 YRS AGO) Drug of Choice: +IV METH past hx Type Used: Cigarettes 2nd Hand Smoke Exposure: Yes Recent Foreign Travel: No Contact w/Someone Who Travel: No Recent Hopitalizations: No Immunizations Up To Date Tetanus Booster (TDap): More than 5yrs Date of Pneumonia Vaccine: Dec 08, 2011 Date of Influenza Vaccine: Dec 31, 2016 Seasonal Allergies Seasonal Allergies: No Surgeries History of Surgeries: No Respiratory History of Respiratory Disorde: Yes (O2 AT 2L/NC) Respiratory Disorders: Asthma, COPD Currently Using CPAP: No Currently Using BIPAP: Yes (PT. STATED) Cardiovascular History of Cardiac Disorders: Yes (HAD HEART CATH. 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 Genitourinary History of Genitourinary Disor: No Gastrointestinal History of Gastrointestinal Di: Yes Gastrointestinal Disorders: Chronic Constipation, Chronic Diarrhea Musculoskeletal History of Musculoskeletal Dis: Yes (chronic shoulder and neck pain) Endocrine History of Endocrine Disorders: Yes (STATES WAS DIABETIC, BUT NO LONGER( UNLESS ON STERIODS)) Endocrine Disorders: Diabetes, Non-Insulin dep Are Your Blood Sugars Over 250: Yes (WHEN ON STERIODS) HEENT History of HEENT Disorders: No Cancer History of Cancer: No Psychosocial History of Psychiatric Problem: Yes Behavioral Health Disorders: Anxiety, Depression Integumentary History of Skin or Integumenta: No Blood Transfusions History of Blood Disorders: No Adverse Reaction to a Blood Tr: No Family Medical History Significant Family History: No Pertinent Family Hx Family Medial History: Cancer 03 MOTHER, Onset:66 (LUNG ) 09 BROTHER (LUNG ) Congestive heart failure 03 FATHER Review of Systems Time Seen by Provider: 06:03 Constitutional: Sweats, Weakness, Malaise, No: Fever Eyes: No: Pain, Vision change, Conjunctivae inflammation, Eyelid inflammation, Other, Redness ENT: No: Ear pain, Ear discharge, Nose pain, Nose discharge, Nose congestion, Mouth pain, Mouth swelling, Throat pain, Throat swelling, Other Respiratory: Cough, Dry, Shortness of breath, SOB with excertion, Wheezing Cardiovascular: Palpitations, Paroxysmal Noc. Dyspnea, Edema, Lt Headedness Gastrointestinal: Nausea, Vomiting, Constipation, No: Abdominal Pain, Diarrhea Genitourinary: No Dysuria, No Frequency, No Incontinence, No Hematuria, No Retention, No Other Musculoskeletal: No: other, neck pain, shoulder pain, arm pain, back pain, hand pain, leg pain, foot pain Skin: No: Rash, Lesions, Jaundice, Bruising, Other Neurological: Weakness Exam Exam Vital Signs Date Time Temp Pulse Resp B/P (MAP) Pulse Ox O2 Delivery O2 Flow Rate FiO2 04/30/17 07:03 93 Nasal Cannula 2.50 04/30/17 07:00 93 Nasal Cannula 2.50 04/30/17 06:53 92 Nasal Cannula 2.50 04/30/17 04:27 98.2 97 16 113/55 (74) 93 Nasal Cannula 2.50 04/30/17 02:09 95 Nasal Cannula 2.50 04/30/17 00:00 97.9 95 22 139/76 (97) 96 Nasal Cannula 2.00 04/29/17 22:07 94 Nasal Cannula 2.50 04/29/17 21:00 95 Nasal Cannula 2.50 04/29/17 20:00 98.2 108 22 139/84 (102) 95 Nasal Cannula 2.00 04/29/17 18:31 95 Nasal Cannula 2.00 04/29/17 17:18 Nasal Cannula 2.50 04/29/17 16:00 98.8 110 18 130/83 (99) 94 Nasal Cannula 2.00 04/29/17 14:28 97 Nasal Cannula 2.00 04/29/17 13:00 98.1 104 32 139/86 (103) 97 Nasal Cannula 2.00 I & O 04/30/17 07:00 Intake Total 4250 ml Output Total 2325 ml Balance 1925 ml General Appearance: Anxious, Mild Distress HEENT: PERRL/EOMI, Normal ENT Inspection Neck: Full Range of Motion, Non Tender, Supple Respiratory: Accessory Muscle Use, Crackles, Decreased Breath Sounds, Wheezing Cardiovascular: Regular Rate, Rhythm Gastrointestinal: normal bowel sounds, non tender, soft Extremity: Normal Capillary Refill, Normal Inspection, Normal Range of Motion Neurologic/Psychiatric: Alert, Oriented x3, No Motor/Sensory Deficits, Normal Mood/Affect Skin: Normal Color, Warm/Dry Lymphatic: No Adenopathy Results Lab Laboratory Tests 04/29/17 14:30 04/30/17 05:41 Assessment/Plan Assessment/Plan Acute on chronic respiratory failure - BiPAP PRN COPDAE oxygen dependent -SVNs , albuterol -Solumedrol 40 Q 6 -BIPAP PRN DANETTE -Pt has BiPAP Acute on chronic respiratory failure Persistent tobacco use -education Obesity 255 Clinical Quality Measures DVT/VTE Risk/Contraindication: Risk Factor Score Per Nursin RFS Level Per Nursing on Admit: 4+=Very High WILLIAMS THOMAS DO Apr 30, 2017 07:33
[2017-04-30] MEDS ORDERED: NICOTINE 14 MG (NICODERM) PATCH TD SCH (09:00)
[2017-04-30] MEDS ORDERED: TIOTROPIUM BROMIDE (SPIRIVA) 5'S INHALER IH SCH (09:00)
[2017-04-30] MEDS ORDERED: DULOXETINE HCL 120 MG PO SCH (09:00)
[2017-04-30] MEDS: NICOTINE PATCH REMOVAL TP SCH (09:25)
[2017-04-30] MEDS: DULoxetine 30 MG (CYMBALTA) CAP PO SCH (09:25)
[2017-04-30] MEDS: ARIPIPRAZOLE 15 MG (ABILIFY) TAB PO SCH (09:25)
[2017-04-30] MEDS: GABAPENTIN 300 MG (NEURONTIN) CAP PO SCH ×3 (09:25→20:21)
[2017-04-30] MEDS: meTOprolol TARTRATE 25 MG (LOPRESSOR) TABLET PO SCH ×2 (09:25→20:22)
[2017-04-30] MEDS: toPIRamate 100 MG (TOPAMAX) TAB PO SCH ×2 (09:25→20:22)
[2017-04-30] MEDS: NICOTINE 14 MG (NICODERM) PATCH TD SCH (09:25)
[2017-04-30] MEDS ORDERED: NON-FORMULARY MEDICATION 1 EA EA (Dulaglutide (Trulicity) 0.75 MG) SQ SCH (09:30)
[2017-04-30] MEDS ORDERED: PATIENT MAY USE OWN MEDS, ALL MC SCH (09:45)
[2017-04-30] MEDS ORDERED: ENOXAPARIN 40 MG/0.4 ML (LOVENOX) SYR SQ SCH (11:00)
[2017-04-30] MEDS ORDERED: NS (IVPB) 250 ML ONE (11:21)
[2017-04-30] MEDS: inSUlin DETERMIR 1 UNIT/0.01 ML (LEVEMIR) CHARGE PER UNIT SQ SCH (11:35)
[2017-04-30] MEDS: MAGNESIUM 1 GM/100 ML IVPB 100 ML IV SCH ×4 (11:40→17:11)
[2017-04-30] MEDS: POTASSIUM CL 10MEQ/50ML IVPB 50 ML IV SCH ×2 (11:40→13:16)
--- NOTE | 2017-04-30 15:56 | History & Physicial (CHS) ---
HPI History of Present Illness: This is a 52 yo female directly admitted for increasing SOA and work of breathing. Pt reports -Thursday of last week she began having SOA and non- productive cough. Denies fever. Pt has hx of COPD w/ frequent exacerbations. She is on 2L oxygen during the day and 2L w/ Bi-pap at night. Pt also report 2 d hx of n/v with 1 vomiting episode since admission. She reports 2-3 week hx of diarrhea, denies blood in her stool. Pt was started on Levaquin and prednisone as an OP earlier this week. Pt was subsequently directly admitted from the clinic as she was not improving with out-pt management. Source: patient Exam Limitations: no limitations Date seen by provider: Apr 30, 2017 Time Seen by Provider: 10:30 Attending Physician Naila Sears DO [facility] Consult Date of Admission Apr 29, 2017 at 12:24 Home Medications Home Medications Reviewed patient Home Medication Reconciliation Form Allergies Coded Allergies: buspirone (Verified Allergy, Mild, 05/09/13) Made"legs Shaky" amitriptyline (Verified Allergy, Unknown, 04/29/17) " MAKES ME DO WEIRD THINGS LIKE WALK IN MY SLEEP AND HAVE HALLUCINATIONS." amlodipine (Verified Allergy, Unknown, 05/09/13) Anasarca [id number]-[id number] Hx Patient Social History Alcohol Use: Denies Use Recreational Drug Use: No (4 YRS AGO) Drug of Choice: +IV METH past hx Type Used: Cigarettes 2nd Hand Smoke Exposure: Yes Recent Foreign Travel: No Contact w/other who traveled: No Recent Hopitalizations: No Physical Abuse Screen: No Sexual Abuse: No Immunizations Up To Date Tetanus Booster (TDap): More than 5yrs Date of Pneumonia Vaccine: Dec 08, 2011 Date of Influenza Vaccine: Dec 31, 2016 Past Medical History Past Medical History 1. HTN 2. COPD 3. Tobaccoism 4.Chronic Migraines- with rebound headaches secondary to overuse of tylenol and ibuprofen 5. Anxiety 6. Depression 7. Endometrial hypertrophy 8. DM- II, pt. stopped taking her medications 9. HLP- with elevated triglycerides 10. Chronic Insomnia 11. Gastritis 12. Methamphetamine abuse with most recent drug screen in clinic 09/19 positive for methamphetamine 13. Several admissions for overdose of benzodiazapine Past Surgical History 1. EGD- Gastritis Loja 2. Colonoscopy- [place]ja Family Medical History Significant Family History: No Pertinent Family Hx Family History: Cancer 03 MOTHER, Onset:66 (LUNG ) 09 BROTHER (LUNG ) Congestive heart failure 03 FATHER Review of Systems (CHC) Constitutional: No chills, No fever Respiratory: short of breath, wheezing Gastrointestinal: abdominal pain, diarrhea, nausea Genitourinary: no symptoms reported Skin: no symptoms reported Psychiatric/Neurological: Anxiety Reviewed Test Results Reviewed Test Results Lab Laboratory Tests 04/29/17 13:00: Urine Color YELLOW, Urine Clarity CLEAR, Urine pH 6, Urine Specific [place] 1.020, Urine Protein 2+H, Urine Glucose (UA) NEGATIVE, Urine Ketones NEGATIVE, Urine Nitrite NEGATIVE, Urine Bilirubin NEGATIVE, Urine Urobilinogen NORMAL, Urine Leukocyte Esterase 1+H, Urine RBC (Auto) 2+H, Urine RBC NONE, Urine WBC 5- 10H, Urine Squamous Epithelial Cells 10-25H, Urine Crystals NONE, Urine Bacteria FEWH, Urine Casts NONE, Urine Mucus MODERATEH, Urine Culture Indicated YES, Urine Opiates Screen POSITIVEH, Urine Oxycodone Screen NEGATIVE, Urine Methadone Screen NEGATIVE, Urine Propoxyphene Screen NEGATIVE, Urine Barbiturates Screen NEGATIVE, Ur Tricyclic Antidepressants Screen NEGATIVE, Urine Phencyclidine Screen NEGATIVE, Urine Amphetamines Screen NEGATIVE, Urine Methamphetamines Screen NEGATIVE, Urine Benzodiazepines Screen NEGATIVE, Urine Cocaine Screen NEGATIVE, Urine Cannabinoids Screen NEGATIVE 04/29/17 14:30: White Blood Count 10.0, Red Blood Count 4.90, Hemoglobin 14.3, Hematocrit 43, Mean Corpuscular Volume 87, Mean Corpuscular Hemoglobin 29, Mean Corpuscular Hemoglobin Concent 34, Red Cell Distribution Width 14.2, Platelet Count 302, Mean Platelet Volume 10.6H, Neutrophils (%) (Auto) 91H, Lymphocytes (%) (Auto) 8L, Monocytes (%) (Auto) 1, Eosinophils (%) (Auto) 0, Basophils (%) (Auto) 0, Neutrophils # (Auto) 9.1H, Lymphocytes # (Auto) 0.8L, Monocytes # (Auto) 0.1, Eosinophils # (Auto) 0.0, Basophils # (Auto) 0.0, Neutrophils % (Manual) 85, Lymphocytes % (Manual) 11, Monocytes % (Manual) 2, Eosinophils % (Manual) 0, Basophils % (Manual) 0, Band Neutrophils 2, Blood Morphology Comment NORMAL, Sodium Level 140, Potassium Level 3.2L, Chloride Level 107, Carbon Dioxide Level 19L, Anion Gap 14, Blood Urea Nitrogen 5L, Creatinine 0.90, Estimat Glomerular Filtration Rate > 60, BUN/Creatinine Ratio 6, Glucose Level 293H, Calcium Level 9.0, Magnesium Level 1.4L 04/29/17 14:50: Glucometer 317H 04/29/17 19:33: Glucometer 184H 04/29/17 21:36: Glucometer 278H 04/30/17 05:21: Glucometer 302H 04/30/17 05:41: White Blood Count 17.5H, Red Blood Count 4.16L, Hemoglobin 12.3, Hematocrit 37, Mean Corpuscular Volume 88, Mean Corpuscular Hemoglobin 30, Mean Corpuscular Hemoglobin Concent 34, Red Cell Distribution Width 14.1, Platelet Count 262, Mean Platelet Volume 11.4H, Neutrophils (%) (Auto) 92H, Lymphocytes (%) (Auto) 6L, Monocytes (%) (Auto) 2, Eosinophils (%) (Auto) 0, Basophils (%) (Auto) 0, Neutrophils # (Auto) 16.1H, Lymphocytes # (Auto) 1.0, Monocytes # (Auto) 0.4, Eosinophils # (Auto) 0.0, Basophils # (Auto) 0.0, Neutrophils % (Manual) 89, Lymphocytes % (Manual) 5, Monocytes % (Manual) 1, Eosinophils % (Manual) 0, Basophils % (Manual) 0, Band Neutrophils 4, Reactive Lymphocytes 1, Blood Morphology Comment NORMAL, Sodium Level 137, Potassium Level 3.5L, Chloride Level 104, Carbon Dioxide Level 21, Anion Gap 12, Blood Urea Nitrogen 18, Creatinine 1.00, Estimat Glomerular Filtration Rate 58, BUN/Creatinine Ratio 18 , Glucose Level 315H, Calcium Level 8.9, Magnesium Level 1.4L 04/30/17 10:53: Glucometer 315H Physical Exam-([facility]) Physical Exam Vital Signs VS - Last 72 Hours, by Label 04/29/17 04/29/17 04/29/17 04/29/17 13:00 14:28 16:00 17:18 Temp 98.1 98.8 Pulse 104 110 Resp 32 18 B/P (MAP) 139/86 (103) 130/83 (99) Pulse Ox 97 97 94 O2 Delivery Nasal Cannula Nasal Cannula Nasal Cannula Nasal Cannula O2 Flow Rate 2.00 2.00 2.00 2.50 04/29/17 04/29/17 04/29/17 04/29/17 18:31 20:00 21:00 22:07 Temp 98.2 Pulse 108 Resp 22 B/P (MAP) 139/84 (102) Pulse Ox 95 95 95 94 O2 Delivery Nasal Cannula Nasal Cannula Nasal Cannula Nasal Cannula O2 Flow Rate 2.00 2.00 2.50 2.50 04/30/17 04/30/17 04/30/17 04/30/17 00:00 02:09 04:27 06:53 Temp 97.9 98.2 Pulse 95 97 Resp 22 16 B/P (MAP) 139/76 (97) 113/55 (74) Pulse Ox 96 95 93 92 O2 Delivery Nasal Cannula Nasal Cannula Nasal Cannula Nasal Cannula O2 Flow Rate 2.00 2.50 2.50 2.50 04/30/17 04/30/17 04/30/17 04/30/17 07:00 07:03 08:00 08:10 Temp 99.2 Pulse 108 Resp 22 B/P (MAP) 129/71 (90) Pulse Ox 93 93 94 O2 Delivery Nasal Cannula Nasal Cannula Nasal Cannula Nasal Cannula O2 Flow Rate 2.50 2.50 2.50 2.50 04/30/17 04/30/17 04/30/17 09:58 11:58 14:54 Temp 99.5 Pulse 92 Resp 20 B/P (MAP) 116/74 (88) Pulse Ox 93 94 93 O2 Delivery Nasal Cannula Nasal Cannula Nasal Cannula O2 Flow Rate 2.50 2.50 2.50 Capillary Refill : General Appearance: WD/WN, mild distress HEENT: PERRL/EOMI Respiratory: decreased breath sounds, wheezing Cardiovascular: regular rate, rhythm Gastrointestinal: non tender, soft Back: other (bruising secodary to fall) Extremities: no pedal edema Neurologic/Psychiatric: alert, normal mood/affect, oriented x 3 Clinical Quality Measures DVT/VTE Risk/Contraindication: Risk Factor Score Per Nursin RFS Level Per Nursing on Admit: 4+=Very High Assessment/Plan Assessment/Plan Admission Dx 1. Acute on chronic respiratory failure 2. COPDAE oxygen dependent 3. DANETTE 4. N/V, diarrhea 5. DM Type 2 6. Chronic TANG Plan 1. Acute on chronic respiratory failure - Dr. Turpin consulted - breathing tx, IV steroids 2. COPDAE oxygen dependent - 2L required at home 3. DANETTE - has Bi-pap at home 4. N/V, diarrhea - symptomatic treatment 5. DM Type 2 - does not have access to home Trulicity, will start Levemir 15 units and Novolog SSI 6. Chronic TANG - Toradol prn 7. Hypokalemia, hypomagnesemia - replace 8. Leukocytosis - likely secondary to steroids CONNOR JOHNSTON DO Apr 30, 2017 15:56
[2017-04-30] MEDS ORDERED: methylPREDNISolone 125 MG (Solu-MEDROL) VIAL IV SCH (18:00)
[2017-04-30] MEDS: methylPREDNISolone 40 MG/ML (Solu-MEDROL) VIAL IV SCH ×2 (18:24→23:06)
[2017-04-30] MEDS: MELATONIN 3 MG TABLET PO SCH (20:21)
[2017-04-30] MEDS: ZOLPIDEM 5 MG (AMBIEN) TAB PO PRN (20:29)
[2017-05-01] MEDS: KETOROLAC 30 MG/ML VIAL IVP PRN ×2 (01:42→11:25)
[2017-05-01] MEDS: RT-ALBUTEROL/IPRATROPIUM 3 ML (DUONEB) VIAL INH SCH ×3 (02:59→10:21)
[2017-05-01 04:00] VITALS: BP 129/78
--- NOTE | 2017-05-01 06:01 | Pulmonary Progress Note ---
Subjective Time Seen by Provider: 06:39 Subjective/Events-last exam Pt appears much improved. Exam Exam Vital Signs Date Time Temp Pulse Resp B/P (MAP) Pulse Ox O2 Delivery O2 Flow Rate FiO2 05/01/17 04:00 97.0 95 18 129/78 (95) 94 Nasal Cannula 2.50 05/01/17 02:59 94 Nasal Cannula 3.00 04/30/17 23:04 97.9 90 22 135/63 (87) 94 Nasal Cannula 2.50 04/30/17 20:22 Nasal Cannula 2.50 04/30/17 20:00 99.1 94 20 149/82 (104) 93 Nasal Cannula 2.50 04/30/17 16:00 98.0 93 20 141/80 (100) 94 Nasal Cannula 2.50 04/30/17 14:54 93 Nasal Cannula 2.50 04/30/17 11:58 99.5 92 20 116/74 (88) 94 Nasal Cannula 2.50 04/30/17 09:58 93 Nasal Cannula 2.50 04/30/17 08:10 Nasal Cannula 2.50 04/30/17 08:00 99.2 108 22 129/71 (90) 94 Nasal Cannula 2.50 04/30/17 07:03 93 Nasal Cannula 2.50 04/30/17 07:00 93 Nasal Cannula 2.50 04/30/17 06:53 92 Nasal Cannula 2.50 I & O 05/01/17 07:00 Intake Total 3070 ml Output Total 2850 ml Balance 220 ml General Appearance: No Apparent Distress, WD/WN HEENT: PERRL/EOMI, Normal ENT Inspection, Pharynx Normal Neck: Normal Inspection, Supple Respiratory: Chest Non Tender, No Accessory Muscle Use, No Respiratory Distress , Decreased Breath Sounds, No Wheezing Cardiovascular: Regular Rate, Rhythm, No Edema, No Gallop Gastrointestinal: non tender, soft Extremity: Normal Capillary Refill, Normal Inspection, Normal Range of Motion Neurologic/Psychiatric: Alert, Oriented x3 Skin: Normal Color, Warm/Dry Lymphatic: No Adenopathy Results Lab Laboratory Tests 04/29/17 14:30 04/30/17 05:41 Assessment/Plan Assessment/Plan Acute on chronic respiratory failure - BiPAP PRN COPDAE oxygen dependent -SVNs , albuterol -Solumedrol 40 Q 6 - change to prednisone taper. -BIPAP PRN DANETTE -Pt has BiPAP Acute on chronic respiratory failure Persistent tobacco use -education Obesity PT is ok for discharge from pulmonary standpoint. 232 Clinical Quality Measures DVT/VTE Risk/Contraindication: Risk Factor Score Per Nursin RFS Level Per Nursing on Admit: 4+=Very High WILLIAMS THOMAS DO May 01, 2017 06:01
[2017-05-01] MEDS: MULTIVIT W/MINERALS TAB (THERAGRAN M) PO SCH (06:13)
[2017-05-01] MEDS: methylPREDNISolone 40 MG/ML (Solu-MEDROL) VIAL IV SCH (06:13)
[2017-05-01] MEDS: inSUlin ASPART (NovoLOG) 1 UNIT/0.01 ML (CHARGE PER UNIT) SC SCH ×2 (06:14→12:57)
[2017-05-01 06:39] LABS: BASOPHILS % (AUTO) 0 % (0-10); EOSINOPHILS % (AUTO) 0 % (0-10); HEMATOCRIT 36 % (35-52); HEMOGLOBIN 11.8 G/DL (11.5-16.0); LYMPHOCYTES # (AUTO) 1.1 X 10^3 (1.0-4.0); LYMPHOCYTES % (AUTO) 6 % (12-44); MEAN CORPUSCULAR HEMOGLOBIN 30 PG (25-34); MEAN CORPUSCULAR HGB CONC 33 G/DL (32-36); MEAN CORPUSCULAR VOLUME 90 FL (80-99); MEAN PLATELET VOLUME 11.5 FL (7.4-10.4); MONOCYTES # (AUTO) 0.8 X 10^3 (0.0-1.0); MONOCYTES % (AUTO) 4 % (0-12); NEUTROPHILS % (AUTO) 90 % (42-75); PLATELET COUNT 271 10^3/uL (130-400); RED CELL DISTRIBUTION WIDTH 14.2 % (10.0-14.5); WHITE BLOOD COUNT 18.9 10^3/uL (4.3-11.0)
[2017-05-01] MEDS: RT-ADVAIR HFA 115/21 MCG PER PUFF IH SCH (06:39)
[2017-05-01] MEDS: UMECLIDINIUM BROMIDE (INCRUSE ELLIPTA) 7'S IH SCH (06:41)
[2017-05-01 06:54] LABS: BUN/CREATININE RATIO 30; CALCIUM 8.7 MG/DL (8.5-10.1); CARBON DIOXIDE 21 MMOL/L (21-32); CHLORIDE 105 MMOL/L (98-107); CREATININE SERUM 0.91 MG/DL (0.60-1.30); GFR ESTIMATED > 60; GLUCOSE 233 MG/DL (70-105); POTASSIUM 4.3 MMOL/L (3.6-5.0); SODIUM 134 MMOL/L (135-145)
--- NOTE | 2017-05-01 06:54 | Discharge Summary ---
Diagnosis/Chief Complaint Date of Admission Apr 29, 2017 at 12:24 Date of Discharge 05/01/17 Admission Diagnosis Admission Diagnosis 1. Acute on chronic respiratory failure 2. COPDAE oxygen dependent 3. DANETTE 4. N/V, diarrhea 5. DM Type 2 6. Chronic TANG Discharge Diagnosis Plan 1. Acute on chronic respiratory failure - Dr. Turpin consulted - breathing tx, IV steroids 05/01 -much improved -cleared for discharge by Dr. Trivedi -discharge to home on home oxygen and prolonged prednisone taper 60 mg PO x3 days 40 mg PO x3 days 20 mg PO x4 days 10 mg PO x4 days -continue home O2 use 2. COPDAE oxygen dependent - 2L required at home 05/01 -continue home oxygen use, prednisone taper as outlined above -pt requests to go back to work on Thursday 3. DANETTE - has Bi-pap at home 4. N/V, diarrhea - symptomatic treatment 05/01 -tolerating diet in the hospital without difficulty -no complaints on exam 5. DM Type 2 - does not have access to home Trulicity, will start Levemir 15 units and Novolog SSI 05/01 -resume home regimen on discharge 6. Chronic TANG - Toradol prn 05/01 -resume home medications on discharge 7. Hypokalemia, hypomagnesemia - replace 8. Leukocytosis - likely secondary to steroids Chief Complaint/HPI Chief Complaint/HPI This is a 52 yo female directly admitted for increasing SOA and work of breathing. Pt reports -Thursday of last week she began having SOA and non- productive cough. Denies fever. Pt has hx of COPD w/ frequent exacerbations. She is on 2L oxygen during the day and 2L w/ Bi-pap at night. Pt also report 2 d hx of n/v with 1 vomiting episode since admission. She reports 2-3 week hx of diarrhea, denies blood in her stool. Pt was started on Levaquin and prednisone as an OP earlier this week. Pt was subsequently directly admitted from the clinic as she was not improving with out-pt management. Discharge Summary-OBS Procedures None. Consultations Dr. Trivedi Discharge Physical Examination Allergies: Coded Allergies: buspirone (Verified Allergy, Mild, 05/02/17) Made"legs Shaky" amitriptyline (Verified Allergy, Unknown, 05/02/17) " MAKES ME DO WEIRD THINGS LIKE WALK IN MY SLEEP AND HAVE HALLUCINATIONS." Vitals & I&Os Intake and Output 05/01/17 00:00 Intake Total 3070 ml Output Total 2850 ml Balance 220 ml Vital Sign - Last 12Hours Date Time Temp Pulse Resp B/P (MAP) Pulse Ox O2 Delivery O2 Flow Rate FiO2 05/01/17 06:46 96 Nasal Cannula 3.00 05/01/17 04:00 97.0 95 18 129/78 (95) General Appearance: Alert, Oriented X3, Cooperative, No Acute Distress HEENT: Atraumatic, EOMI, Mucous Memb Moist/[place] Respiratory: Other (diminished, mostly clear with occasional scattered wheezing ) Cardiovascular: Regular Rate, Normal S1, Normal S2 Abdominal: Normal Bowel Sounds, Soft, No Tenderness Extremities: No Cyanosis, Normal Pulses Skin: No Rashes, No Significant Lesion Neuro: Normal Speech, Normal Tone, Sensation Intact, Cranial Nerves 3-12 NL Psych/Mental Status: Mental Status NL, Mood NL Hospital Course Labs Laboratory Tests 04/30/17 10:53: Glucometer 315H 04/30/17 15:41: Glucometer 215H 04/30/17 21:23: Glucometer 228H 05/01/17 05:30: White Blood Count 18.9H, Red Blood Count 4.00L, Hemoglobin 11.8, Hematocrit 36, Mean Corpuscular Volume 90, Mean Corpuscular Hemoglobin 30, Mean Corpuscular Hemoglobin Concent 33, Red Cell Distribution Width 14.2, Platelet Count 271, Mean Platelet Volume 11.5H, Neutrophils (%) (Auto) 90H, Lymphocytes (%) (Auto) 6L, Monocytes (%) (Auto) 4, Eosinophils (%) (Auto) 0, Basophils (%) (Auto) 0, Neutrophils # (Auto) 17.0H, Lymphocytes # (Auto) 1.1, Monocytes # (Auto) 0.8, Eosinophils # (Auto) 0.0, Basophils # (Auto) 0.0 05/01/17 06:10: Glucometer 233H Microbiology 04/29/17 Urine Culture - Preliminary, Resulted Discharge Instructions to patient/family Please see electronic discharge instructions given to patient. Discharge Medications Reviewed and agree with Discharge Medication list on patient's Discharge Instruction sheet Clinical Quality Measures DVT/VTE Risk/Contraindication: Risk Factor Score Per Nursin RFS Level Per Nursing on Admit: 4+=Very High Copy Copies To 1: [facility]/PAZ ANDERSON DO May 01, 2017 06:54
[2017-05-01] MEDS ORDERED: PRD20T PO (07:01)
[2017-05-01 08:00] VITALS: BP 112/75
[2017-05-01] MEDS ORDERED: predniSONE 10 MG TAB PO SCH (09:00)
[2017-05-01] MEDS: NICOTINE 14 MG (NICODERM) PATCH TD SCH (09:51)
[2017-05-01] MEDS: meTOprolol TARTRATE 25 MG (LOPRESSOR) TABLET PO SCH (09:52)
[2017-05-01] MEDS: GABAPENTIN 300 MG (NEURONTIN) CAP PO SCH ×2 (09:52→12:56)
[2017-05-01] MEDS: NICOTINE PATCH REMOVAL TP SCH (09:52)
[2017-05-01] MEDS: inSUlin DETERMIR 1 UNIT/0.01 ML (LEVEMIR) CHARGE PER UNIT SQ SCH (09:53)
[2017-05-01] MEDS: DULoxetine 30 MG (CYMBALTA) CAP PO SCH (09:53)
[2017-05-01] MEDS: toPIRamate 100 MG (TOPAMAX) TAB PO SCH (09:53)
[2017-05-01] MEDS: ARIPIPRAZOLE 15 MG (ABILIFY) TAB PO SCH (09:53)
[2017-05-01] MEDS ORDERED: ENOXAPARIN 40 MG/0.4 ML (LOVENOX) SYR SQ SCH (11:00)
[2017-05-01 12:00] VITALS: BP 136/75
--- NOTE | 2017-05-01 14:27 | Discharge Instructions ---
Discharge [facility] Discharge Medications New, Converted or Re-Newed RX: Transmitted to Pharmacy Changed Medications: Prednisone (Prednisone) 20 Mg Tab 60 MG PO DAILY for 14 Days, #21 TAB (Changed from: 40 MG; 5; 5 DAY THERAPY FILLED 04-27-17) 60 mg PO x 3 days 40 mg PO x 3 days 20 mg PO x 4 days 10 mg PO x 4 days Continued Medications: Albuterol Sulfate (Ventolin Hfa) 1 Puff Puff 2 PUFF IH Q4H PRN for SHORTNESS OF BREATH, PUFF 1 PUFF = 90 MCG Aripiprazole (Aripiprazole) 15 Mg Tablet 15 MG PO DAILY, TAB Dulaglutide (Trulicity) 0.75 Mg/0.5 Ml Pen.injctr 0.75 MG SQ Th, VIAL Duloxetine HCl (Cymbalta) 60 Mg Capsule.dr 120 MG PO DAILY, CAP TAKES 2 (60MG) CAPSULES Fluticasone/Salmeterol (Advair 250-50 Diskus) 1 Each Blst.w.dev 1 PUFF IH BID, INHALER Gabapentin (Gabapentin) 300 Mg Capsule 300 MG PO TID, CAP Glimepiride (Glimepiride) 1 Mg Tablet 1 MG PO DAILY PRN for WHEN TAKING PREDNISONE, TAB Ipratropium/Albuterol Sulfate (Iprat-Albut 0.5-3(2.5) mg/3 ml) 3 Ml Ampul.neb 3 ML IH QID PRN for SHORTNESS OF BREATH, EA Melatonin (Melatonin) 5 Mg Capsule 5 MG PO HS, CAP Metoprolol Tartrate (Metoprolol Tartrate) 25 Mg Tablet 12.5 MG PO BID, TAB TAKES 1/2 (25MG) TABLET Multivitamin (Multivitamins) 1 Each Tablet 1 TAB PO DAILY, TAB Tiotropium Mancos (Spiriva) 1 Inh Aerp 1 CAP IH DAILY, INHALER Topiramate (Topiramate) 100 Mg Tablet 100 MG PO BID, TAB LAST FILLED #60 02-06-17 Zolpidem Tartrate (Zolpidem Tartrate ER) 6.25 Mg Tab.mphase 6.25 MG PO HS PRN for SLEEP, TAB LAST FILLED #15 03-17-17 Discontinued Medications: Levofloxacin (Levaquin) 500 Mg Tablet 500 MG PO DAILY for 10 Days, TAB 10 DAY THERAPY START DATE 04-27-17 Patient Instructions Patient Instructions -take medications as prescribed -keep follow up appointments as scheduled -try to quit smoking Goal/Follow Up Appt: 05/06/17 at 1140 am with Bessy Jacob APRN Patient Instructions: Okay to return to work on Thursday Return to The Hospital For: chest pain or pressure, increased shortness of breath out of normal for patient, nausea or vomiting that makes you unable to keep down ice chips for more than 12-24 hours, fever over 101 that is unrelieved after tylenol or ibuprofen, if directed by nutrition worker provider, or any other emergent complaints or concerns Activity & Diet Discharge Diet: ADA Diet Activity as Tolerated: Yes PAZ IVERSON DO May 01, 2017 07:04
== END 2017-05-01 10:00 | disposition home or self-care (01) ==
LOC: 4TH 12:24 → UNDOADMOB 12:24 → 4TH 14:30
PROVIDERS: ADMIT Family Medicine; ATTEND Family Medicine
DX: J96.20 Acute and chronic respiratory failure, unspecified whether with hypoxia or hypercapnia (principal); J44.1 Chronic obstructive pulmonary disease with (acute) exacerbation; G47.33 Obstructive sleep apnea (adult) (pediatric); R11.2 Nausea with vomiting, unspecified; E11.9 Type 2 diabetes mellitus without complications; G43.909 Migraine, unspecified, not intractable, without status migrainosus; R19.7 Diarrhea, unspecified; E87.6 Hypokalemia; E83.42 Hypomagnesemia; D72.829 Elevated white blood cell count, unspecified; Z99.81 Dependence on supplemental oxygen; F17.210 Nicotine dependence, cigarettes, uncomplicated; E66.9 Obesity, unspecified; Z68.37 Body mass index [BMI] 37.0-37.9, adult; Z88.8 Allergy status to other drugs, medicaments and biological substances; I10 Essential (primary) hypertension; F41.9 Anxiety disorder, unspecified; F32.9 Major depressive disorder, single episode, unspecified; E78.1 Pure hyperglyceridemia; G47.00 Insomnia, unspecified; F15.10 Other stimulant abuse, uncomplicated; Z79.899 Other long term (current) drug therapy
CPT/HCPCS: 36415; 71046; 80048; 80306; 81000; 82962; 83735; 85007; 85025; 85027; 87088; 94640; 94760; 99211; G0378

== ENCOUNTER 2017-05-02 16:17 | Inpatient (IN) | payer SELFPAY ==
[~2017-05-02] VITALS: Ht 175.3 cm; Wt 117.2 kg
[~2017-05-02 16:17] MED LIST changes: +GLIM1TAB PO; +LEVO500T2 PO; +METO-333 PO
--- NOTE | 2017-05-02 16:48 | ED General ---
General Chief Complaint: General Problems/Pain Stated Complaint: DIZZY,BLACK DIAHREA Nursing Triage Note: ARRIED VIA AMB TO ROOM 06. STATES SHE WAS JUST RELEASED FROM HOSPITAL YESTERDAY AND HAVING THE SAME SX OF SOA, DIZZINESS, AND THE DIARRHEA HAS TURNED BLACK. PT WEARS HOME OXYGEN BUT WAS NOT WEARING IT UPON COMING TO ER. Nursing Sepsis Screen: No Definite Risk Source of Information: Patient Exam Limitations: No Limitations History of Present Illness Date Seen by Provider: May 02, 2017 Time Seen by Provider: 16:45 Initial Comments To ER with reports of feeling poorly. She was just discharged from the hospital yesterday following an admission for COPD exacerbation. Symptoms today include dark colored stools, dizziness, shortness of breath. She denies taking iron tablets or Pepto-Bismol use Timing/Duration: 1-2 Days Severity: Moderate Allergies and Home Medications Allergies Coded Allergies: buspirone (Verified Allergy, Mild, 05/09/13) Made"legs Shaky" amitriptyline (Verified Allergy, Unknown, 04/29/17) " MAKES ME DO WEIRD THINGS LIKE WALK IN MY SLEEP AND HAVE HALLUCINATIONS." amlodipine (Verified Allergy, Unknown, 05/09/13) Anasarca Home Medications Albuterol Sulfate 1 Puff Puff, 2 PUFF IH Q4H PRN for SHORTNESS OF BREATH, ( Reported) 1 PUFF = 90 MCG Aripiprazole 15 Mg Tablet, 15 MG PO DAILY, (Reported) Dulaglutide 0.75 Mg/0.5 Ml Pen.injctr, 0.75 MG SQ Th, (Reported) Duloxetine HCl 60 Mg Capsule.dr, 120 MG PO DAILY, (Reported) TAKES 2 (60MG) CAPSULES Fluticasone/Salmeterol 1 Each Blst.w.dev, 1 PUFF IH BID, (Reported) Gabapentin 300 Mg Capsule, 300 MG PO TID, (Reported) Glimepiride 1 Mg Tablet, 1 MG PO DAILY PRN for WHEN TAKING PREDNISONE, (Reported ) Ipratropium/Albuterol Sulfate 3 Ml Ampul.neb, 3 ML IH QID PRN for SHORTNESS OF BREATH, (Reported) Melatonin 5 Mg Capsule, 5 MG PO HS, (Reported) Metoprolol Tartrate 25 Mg Tablet, 12.5 MG PO BID, (Reported) TAKES 1/2 (25MG) TABLET Multivitamin 1 Each Tablet, 1 TAB PO DAILY, (Reported) Prednisone 20 Mg Tab, 60 MG PO DAILY 60 mg PO x 3 days 40 mg PO x 3 days 20 mg PO x 4 days 10 mg PO x 4 days Prescribed by: PAZ IVERSON on 05/01/17 0701 Tiotropium Mccarley 1 Inh Aerp, 1 CAP IH DAILY, (Reported) Topiramate 100 Mg Tablet, 100 MG PO BID, (Reported) LAST FILLED #60 02-06-17 Zolpidem Tartrate 6.25 Mg Tab.mphase, 6.25 MG PO HS PRN for SLEEP, (Reported) LAST FILLED #15 03-17-17 Constitutional: see HPI EENTM: see HPI Respiratory: no symptoms reported Cardiovascular: no symptoms reported Gastrointestinal: No abdominal pain, melena Genitourinary: no symptoms reported Musculoskeletal: no symptoms reported Skin: no symptoms reported Psychiatric/Neurological: No Symptoms Reported Hematologic/Lymphatic: No Symptoms Reported Past Jdriece-Gawduw-Uxqhvx Hx Patient Social History Alcohol Use: Denies Use Recreational Drug Use: No (4 YRS AGO) Drug of Choice: +IV METH past hx Smoking Status: Current Everyday Smoker Type Used: Cigarettes 2nd Hand Smoke Exposure: Yes Recent Foreign Travel: No Contact w/Someone Who Travel: No Recent Infectious Disease Expo: No Recent Hopitalizations: No Immunizations Up To Date Tetanus Booster (TDap): Unknown Date of Pneumonia Vaccine: Dec 08, 2011 Date of Influenza Vaccine: Dec 31, 2016 Seasonal Allergies Seasonal Allergies: No Surgeries History of Surgeries: No Respiratory History of Respiratory Disorde: Yes (O2 AT 2L/NC) Respiratory Disorders: Asthma, COPD Currently Using CPAP: No Currently Using BIPAP: Yes (PT. STATED) Cardiovascular History of Cardiac Disorders: Yes (HAD HEART CATH. 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 Genitourinary History of Genitourinary Disor: No Gastrointestinal History of Gastrointestinal Di: Yes Gastrointestinal Disorders: Chronic Constipation, Chronic Diarrhea Musculoskeletal History of Musculoskeletal Dis: Yes (chronic shoulder and neck pain) Endocrine History of Endocrine Disorders: Yes (STATES WAS DIABETIC, BUT NO LONGER( UNLESS ON STERIODS)) Endocrine Disorders: Diabetes, Non-Insulin dep HEENT History of HEENT Disorders: No Cancer History of Cancer: No Psychosocial History of Psychiatric Problem: Yes Behavioral Health Disorders: Anxiety, Depression Integumentary History of Skin or Integumenta: No Blood Transfusions History of Blood Disorders: No Adverse Reaction to a Blood Tr: No Family Medical History Significant Family History: No Pertinent Family Hx Family Medial History: Cancer 03 MOTHER, Onset:66 (LUNG ) 09 BROTHER (LUNG ) Congestive heart failure 03 FATHER Physical Exam Vital Signs Vital Signs - First Documented 05/02/17 16:30 Temp 98.2 Pulse 130 Resp 22 B/P (MAP) 107/81 (90) Pulse Ox 100 O2 Delivery Room Air Capillary Refill : Less Than 3 Seconds General Appearance: No Apparent Distress, WD/WN, Chronically ill Eyes: Bilateral Eye Normal Inspection, Bilateral Eye PERRL, Bilateral Eye EOMI HEENT: PERRL/EOMI, TMs Normal Neck: Full Range of Motion, Normal Inspection Respiratory: No Accessory Muscle Use, No Respiratory Distress, Wheezing Cardiovascular: Regular Rate, Rhythm, Normal Peripheral Pulses Gastrointestinal: Non Tender, Soft Extremity: Normal Capillary Refill, Normal Inspection Neurologic/Psychiatric: Alert, Oriented x3, No Motor/Sensory Deficits Skin: Normal Color, Warm/Dry Progress/Results/Core Measures Suspected Sepsis Recent Fever Within 48 Hours: No Infection Criteria Present: None New/Unexplained Altered Menta: No Sepsis Screen: No Definite Risk Sepsis Diagnosis: SIRS Temperature:98.2 Pulse: 130 Respiratory Rate: 22 Laboratory Tests 05/02/17 17:03: White Blood Count 14.4H Blood Pressure 107 /81 Mean: 90 Laboratory Tests 05/02/17 16:53: Creatinine 0.88 05/02/17 17:03: Platelet Count 281 Results/Orders Lab Results Laboratory Tests Test 05/02/17 16:53 05/02/17 17:03 Range/Units Sodium Level 136 135-145 MMOL/L Potassium Level 3.9 3.6-5.0 MMOL/L Chloride Level 109 H 98-107 MMOL/L Carbon Dioxide Level 18 L 21-32 MMOL/L Anion Gap 9 5-14 MMOL/L Blood Urea Nitrogen 62 H 7-18 MG/DL Creatinine 0.88 0.60-1.30 MG/DL Estimat Glomerular Filtration Rate > 60 BUN/Creatinine Ratio 70 Glucose Level 251 H 70-105 MG/DL Calcium Level 8.0 L 8.5-10.1 MG/DL Magnesium Level 1.8 1.8-2.4 MG/DL White Blood Count 14.4 H 4.3-11.0 10^3/uL Red Blood Count 2.70 L 4.35-5.85 10^6/uL Hemoglobin 8.0 #L 11.5-16.0 G/DL Hematocrit 24 L 35-52 % Mean Corpuscular Volume 90 80-99 FL Mean Corpuscular Hemoglobin 30 25-34 PG Mean Corpuscular Hemoglobin Concent 33 32-36 G/DL Red Cell Distribution Width 14.3 10.0-14.5 % Platelet Count 281 130-400 10^3/uL Mean Platelet Volume 10.7 H 7.4-10.4 FL Neutrophils (%) (Auto) 55 42-75 % Lymphocytes (%) (Auto) 31 12-44 % Monocytes (%) (Auto) 13 H 0-12 % Eosinophils (%) (Auto) 0 0-10 % Basophils (%) (Auto) 0 0-10 % Neutrophils # (Auto) 7.9 H 1.8-7.8 X 10^3 Lymphocytes # (Auto) 4.5 H 1.0-4.0 X 10^3 Monocytes # (Auto) 1.9 H 0.0-1.0 X 10^3 Eosinophils # (Auto) 0.0 0.0-0.3 10^3/uL Basophils # (Auto) 0.0 0.0-0.1 10^3/uL My Orders Orders - ELLEN ACE APRN Cbc With Automated Diff (05/02/17 16:25) Basic Metabolic Panel (05/02/17 16:25) Occult Blood Stool (05/02/17 16:25) Magnesium (05/02/17 16:43) Pantoprazole Tablet (Protonix Tablet) (05/02/17 17:00) Sucralfate Tablet (Carafate Tablet) (05/02/17 17:00) Pantoprazole Injection (Protonix Injecti (05/02/17 17:30) Famotidine Injection (Pepcid Injection) (05/02/17 17:30) Medications Given in ED Current Medications Medications Dose Ordered Sig/Vladimir Route Start Time Stop Time Status Last Admin Dose Admin Famotidine 20 mg ONCE ONCE IVP 05/02/17 17:30 05/02/17 17:31 DC 05/02/17 17:30 20 MG Pantoprazole 40 mg ONCE ONCE IV 05/02/17 17:30 05/02/17 17:31 DC 05/02/17 17:30 40 MG Pantoprazole Sodium 40 mg ONCE ONCE PO 05/02/17 17:00 05/02/17 17:01 DC 05/02/17 17:23 40 MG Sucralfate 1 gm ONCE ONCE PO 05/02/17 17:00 05/02/17 17:01 DC 05/02/17 17:23 1 GM Vital Signs/I&O Vital Sign - Last 12Hours 05/02/17 16:30 Temp 98.2 Pulse 130 Resp 22 B/P (MAP) 107/81 (90) Pulse Ox 100 O2 Delivery Room Air Capillary Refill : Less Than 3 Seconds Blood Pressure Mean: 90 Departure Communication (Admissions) Time/Spoke to Admitting Phy: 17:22 Communication Discussed the drop in hemoglobin with dizziness and dark stools with Dr. Barreto who is on-call for [facility]. We will readmit the patient, consult surgery. I then notified Dr. Hooper who is on-call for surgery, he like to have an EGD scheduled for tomorrow at 10 AM, nothing by mouth after 5 AM, clear liquids, proton pump inhibitor and carafate Progress Notes 1719- during her most recent admission she was on Lovenox, Toradol, prednisone. Her hemoglobin on 04/29 - 14.3 04/30 -12.3 28/05 -11.8 Today - 8 1744-admitting the patient. We will continue the steroid taper that she was started on upon discharge yesterday which was 60 mg daily for 3 days then 40 mg daily for 3 days then 20 mg daily for 4 days then 10 mg daily for 4 days as this is essential in controlling her COPD with recent exacerbation. She is not on blood thinners. I will have the nurses recheck and H&H tonight at midnight and if that hemoglobin is less than 8 they will then transfuse 2 units of packed red cells Impression Impression: Primary Impression: GI bleed Disposition: ADMITTED INPATIENT Condition: Stable Admissions Decision to Admit Reason: Admit from ER (General) Decision to Admit/Date: May 02, 2017 Time/Decision to Admit Time: 17:24 Departure-Patient Inst. Referrals: [facility] (PCP) Primary Care Physician ALIZA CARTER (Family) Primary Care Physician ELLEN ACE APRN May 02, 2017 16:47
[2017-05-02] MEDS ORDERED: PANTOPRAZOLE 40 MG (PROTONIX) TAB PO ONE (17:00)
[2017-05-02] MEDS ORDERED: SUCRALFATE 1 GM (CARAFATE) TAB PO ONE (17:00)
[2017-05-02 17:10] LABS: BASOPHILS % (AUTO) 0 % (0-10); EOSINOPHILS % (AUTO) 0 % (0-10); HEMATOCRIT 24 % (35-52); LYMPHOCYTES # (AUTO) 4.5 X 10^3 (1.0-4.0); LYMPHOCYTES % (AUTO) 31 % (12-44); MEAN CORPUSCULAR HEMOGLOBIN 30 PG (25-34); MEAN CORPUSCULAR HGB CONC 33 G/DL (32-36); MEAN CORPUSCULAR VOLUME 90 FL (80-99); MEAN PLATELET VOLUME 10.7 FL (7.4-10.4); MONOCYTES # (AUTO) 1.9 X 10^3 (0.0-1.0); MONOCYTES % (AUTO) 13 % (0-12); NEUTROPHILS # (AUTO) 7.9 X 10^3 (1.8-7.8); NEUTROPHILS % (AUTO) 55 % (42-75); PLATELET COUNT 281 10^3/uL (130-400); RED CELL DISTRIBUTION WIDTH 14.3 % (10.0-14.5); WHITE BLOOD COUNT 14.4 10^3/uL (4.3-11.0)
[2017-05-02 17:19] LABS: BUN/CREATININE RATIO 70; CARBON DIOXIDE 18 MMOL/L (21-32); CHLORIDE 109 MMOL/L (98-107); CREATININE SERUM 0.88 MG/DL (0.60-1.30); GFR ESTIMATED > 60; GLUCOSE 251 MG/DL (70-105); MAGNESIUM 1.8 MG/DL (1.8-2.4); POTASSIUM 3.9 MMOL/L (3.6-5.0); SODIUM 136 MMOL/L (135-145)
[2017-05-02] MEDS ORDERED: PANTOPRAZOLE 40 MG/10 ML (PROTONIX) VIAL IV ONE (17:30)
[2017-05-02] MEDS ORDERED: FAMOTIDINE 20MG/2ML IV (PEPCID) IVP ONE (17:30)
--- NOTE | 2017-05-02 18:11 | CONSULTATION REPORT ---
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 HISTORY OF PRESENT ILLNESS: The patient is a 52-year-old female who presented to the Emergency Department with shortness of breath, lightheadedness, dizziness as well as dark tarry stools. She was recently discharged due to exacerbation of COPD. She reports that she initially had diarrhea that then turned black. She does not report having these symptoms before in the past. Serial laboratory work did show initial normal hemoglobin, however, this has dropped in the past several weeks. PAST MEDICAL HISTORY: Previous drug abuse, asthma, COPD, degenerative joint disease, headache, migraines, hypertension, mixed variety irritable bowel syndrome, non-insulin dependent diabetes, anxiety and depression. PAST SURGICAL HISTORY: Cardiac catheterization. ALLERGIES: BUSPIRONE, AMITRIPTYLINE, AND AMLODIPINE. MEDICATIONS: Albuterol 2 puffs q.4 hours p.r.n., aripiprazole 15 mg daily, dulaglutide 0.75 mg weekly, duloxetine 120 mg daily, fluticasone and salmeterol 1 puff b.i.d., gabapentin 300 mg t.i.d., glimepiride 1 mg p.r.n., ipratropium q.i.d. p.r.n., metoprolol 25 mg b.i.d., prednisone 60 mg daily, ipratropium bromide daily, topiramate 100 mg b.i.d., and zolpidem 6.25 mg at bedtime. SOCIAL HISTORY: Previous methamphetamine use. Positive smoke, 30 pack years. Negative alcohol. FAMILY HISTORY: Father, congestive heart failure. Mother and brother, COPD. VITAL SIGNS: Temperature 98.2, blood pressure 107/81, pulse 130, respirations 20, pulse ox 100% on room air. REVIEW OF SYSTEMS: A well-nourished female, currently in no acute distress. She is not experiencing any shortness of breath or difficulty breathing. No chest pain, palpitations, or diaphoresis. Intermittent episodes of nausea, no vomiting. Diarrhea followed by dark tarry stools. No fever or chills. No recent inadvertent weight loss. All other review of systems negative. PHYSICAL EXAMINATION: CHEST: Scattered rales and expiratory wheezes bilaterally. HEART: Regular, no murmurs. EXTREMITIES: No lower extremity edema, negative Homans sign. HEENT: No scleral icterus. NECK: No cervical lymphadenopathy. ABDOMEN: Soft, nontender, nondistended. SKIN: Warm and dry. LABORATORY DATA: WBC 14.4, hemoglobin 8.0, hematocrit 24, platelets 281. BUN 62, creatinine 0.88. ASSESSMENT AND PLAN: A 52-year-old female with upper gastrointestinal bleeding. We will schedule her for an EGD as well as biopsies as appropriate on this admission. Job ID: [id number] DocumentID: [id number] Dictated Date: 05/02/2017 17:44:06 Marsh Buggy Operator Date: 05/02/2017 18:10:39 Dictated By: CLAUDIA HEADLEY MD
[2017-05-02 18:30] VITALS: BP 121/73
[2017-05-02] MEDS ORDERED: NS IV 1000 ML 1,000 ML ONE (19:14)
[2017-05-02] MEDS ORDERED: RT-ALBUTEROL SULF 2.5 MG/3 ML PRE-MIX VIAL ONE (19:28)
[2017-05-02 19:39] VITALS: BP 121/73
[2017-05-02] MEDS: NS IV 1000 ML 1,000 ML IV SCH (19:40)
[2017-05-02] MEDS ORDERED: ONDANSETRON 4 MG/2 ML (SDV) Z0FRAN ONE (19:51)
[2017-05-02] MEDS ORDERED: RT-ALBUTEROL SULF 2.5 MG/3 ML PRE-MIX VIAL INH PRN (20:00)
[2017-05-02] MEDS ORDERED: ONDANSETRON 4 MG/2 ML (SDV) Z0FRAN IV PRN (20:00)
[2017-05-02 21:00] VITALS: BP 129/61
[2017-05-02] MEDS ORDERED: NovoLOG/HumaLOG RANGE A SC SCH (21:00)
[2017-05-02] MEDS: SUCRALFATE 1 GM (CARAFATE) TAB PO SCH (21:14)
[2017-05-02] MEDS: RT-ADVAIR HFA 115/21 MCG PER PUFF IH SCH (21:24)
[2017-05-03] VITALS (13 sets, daily range): BP systolic 94–129; BP diastolic 51–78
[2017-05-03] MEDS: RT-ALBUTEROL SULF 2.5 MG/3 ML PRE-MIX VIAL INH SCH ×6 (02:36→21:11)
[2017-05-03] MEDS: SUCRALFATE 1 GM (CARAFATE) TAB PO SCH ×4 (06:03→20:43)
[2017-05-03] MEDS: predniSONE 20 MG TAB PO SCH ×2 (06:03→11:52)
--- NOTE | 2017-05-03 06:17 | History & Physicial (CHS) ---
HPI History of Present Illness: 52-year-old female presents to [facility] emergency department after experiencing dizziness, not feeling well, and on further history change of stool coloration. Apparently she has noted dark stools recently and she denies any usage of medications that may have changed her stool color such as Pepto- Bismol. Patient was recently in the hospital after her COPD exacerbation and had been on steroids. Source: patient Exam Limitations: clinical condition Date seen by provider: May 03, 2017 Time Seen by Provider: 06:15 Attending Physician Kee Woods MD PCP Center/[facility] [place] Consult Date of Admission May 02, 2017 at 17:25 Home Medications Home Medications Reviewed patient Home Medication Reconciliation Form Allergies Coded Allergies: buspirone (Verified Allergy, Mild, 05/02/17) Made"legs Shaky" amitriptyline (Verified Allergy, Unknown, 05/02/17) " MAKES ME DO WEIRD THINGS LIKE WALK IN MY SLEEP AND HAVE HALLUCINATIONS." [id number]-[id number] Hx Patient Social History Alcohol Use: Denies Use Recreational Drug Use: No (4 YRS AGO) Drug of Choice: +IV METH past hx Smoking Status: Current Everyday Smoker Type Used: Cigarettes 2nd Hand Smoke Exposure: Yes Recent Foreign Travel: No Contact w/other who traveled: No Recent Hopitalizations: Yes Recent Infectious Disease Expo: No Physical Abuse Screen: No Sexual Abuse: No Immunizations Up To Date Tetanus Booster (TDap): Unknown Date of Pneumonia Vaccine: Dec 08, 2011 Date of Influenza Vaccine: Dec 31, 2016 Past Medical History Past Medical History 1. HTN 2. COPD 3. Tobaccoism 4.Chronic Migraines- with rebound headaches secondary to overuse of tylenol and ibuprofen 5. Anxiety 6. Depression 7. Endometrial hypertrophy 8. DM- II, pt. stopped taking her medications 9. HLP- with elevated triglycerides 10. Chronic Insomnia 11. Gastritis 12. Methamphetamine abuse with most recent drug screen in clinic 09/19 positive for methamphetamine 13. Several admissions for overdose of benzodiazapine Past Surgical History 1. EGD- Gastritis Loja 2. Colonoscopy- Loja Family Medical History Significant Family History: No Pertinent Family Hx Family History: Cancer 03 MOTHER, Onset:66 (LUNG ) 09 BROTHER (LUNG ) Congestive heart failure 03 FATHER Review of Systems (CHC) Constitutional: see HPI Reviewed Test Results Reviewed Test Results Lab Laboratory Tests Test 05/02/17 16:53 05/02/17 17:03 05/02/17 20:53 05/03/17 00:35 Range/Units Sodium Level 136 135-145 MMOL/L Potassium Level 3.9 3.6-5.0 MMOL/L Chloride Level 109 H 98-107 MMOL/L Carbon Dioxide Level 18 L 21-32 MMOL/L Anion Gap 9 5-14 MMOL/L Blood Urea Nitrogen 62 H 7-18 MG/DL Creatinine 0.88 0.60-1.30 MG/DL Estimat Glomerular Filtration Rate > 60 BUN/Creatinine Ratio 70 Glucose Level 251 H 70-105 MG/DL Calcium Level 8.0 L 8.5-10.1 MG/DL Magnesium Level 1.8 1.8-2.4 MG/DL White Blood Count 14.4 H 4.3-11.0 10^3/uL Red Blood Count 2.70 L 4.35-5.85 10^6/uL Hemoglobin 8.0 #L 7.0 L 11.5-16.0 G/DL Hematocrit 24 L 21 L 35-52 % Mean Corpuscular Volume 90 80-99 FL Mean Corpuscular Hemoglobin 30 25-34 PG Mean Corpuscular Hemoglobin Concent 33 32-36 G/DL Red Cell Distribution Width 14.3 10.0-14.5 % Platelet Count 281 130-400 10^3/uL Mean Platelet Volume 10.7 H 7.4-10.4 FL Neutrophils (%) (Auto) 55 42-75 % Lymphocytes (%) (Auto) 31 12-44 % Monocytes (%) (Auto) 13 H 0-12 % Eosinophils (%) (Auto) 0 0-10 % Basophils (%) (Auto) 0 0-10 % Neutrophils # (Auto) 7.9 H 1.8-7.8 X 10^3 Lymphocytes # (Auto) 4.5 H 1.0-4.0 X 10^3 Monocytes # (Auto) 1.9 H 0.0-1.0 X 10^3 Eosinophils # (Auto) 0.0 0.0-0.3 10^3/uL Basophils # (Auto) 0.0 0.0-0.1 10^3/uL Physical Exam-(CHC) Physical Exam Vital Signs VS - Last 72 Hours, by Label 05/02/17 05/02/17 05/02/1724/18 16:30 18:24 18:30 18:30 Temp 98.2 98.3 Pulse 130 81 121 Resp 22 18 22 B/P (MAP) 107/81 (90) 154/90 121/73 (89) Pulse Ox 100 98 100 O2 Delivery Room Air Nasal Cannula Nasal Cannula Nasal Cannula O2 Flow Rate 2.00 2.00 2.00 05/02/17 05/02/17 05/02/17 05/02/17 19:36 19:39 20:32 21:00 Pulse 79 106 Pulse Ox 98 97 O2 Delivery Nasal Cannula Nasal Cannula O2 Flow Rate 2.00 2.00 05/02/17 05/02/17 05/02/17 05/03/17 21:00 21:24 21:28 00:00 Temp 98.3 98.3 Pulse 113 103 Resp 22 20 B/P (MAP) 129/61 (83) 102/58 (73) Pulse Ox 100 99 95 O2 Delivery Nasal Cannula Nasal Cannula Nasal Cannula Nasal Cannula O2 Flow Rate 2.00 2.00 2.00 2.00 05/03/17 05/03/17 05/03/17 05/03/17 01:00 02:36 04:00 06:48 Temp 98.4 98.9 Pulse 109 99 99 Resp 18 B/P (MAP) 101/51 (68) 103/58 Pulse Ox 86 99 98 O2 Delivery Room Air Nasal Cannula Nasal Cannula O2 Flow Rate 2.00 2.00 05/03/17 05/03/17 05/03/17 05/03/17 06:50 07:04 07:05 07:05 Temp 98.9 98.4 Pulse 99 96 Resp 18 B/P (MAP) 103/58 (73) 109/64 Pulse Ox 98 98 98 97 O2 Delivery Nasal Cannula Nasal Cannula Nasal Cannula Nasal Cannula O2 Flow Rate 2.00 2.00 2.00 2.00 Capillary Refill : Less Than 3 Seconds General Appearance: no apparent distress Clinical Quality Measures DVT/VTE Risk/Contraindication: Risk Factor Score Per Nursin RFS Level Per Nursing on Admit: 3=High Assessment/Plan Assessment/Plan Admission Dx 1. Significant anemia 2. Upper GI bleed suspected 3. COPD Plan 1. Significant anemia -Patient to be admitted for further H&H monitoring -Blood transfusion as necessary if hemoglobin less than 7 2. Upper GI bleed suspected -Surgical consultation obtained through the emergency room and Dr. Hooper has been notified. 3. COPD--recent exacerbation with inpatient hospitalization -She'll be maintained on her home medications. At this point will continue with the prednisone due to her recent hospitalization with COPD exacerbation. KEE WOODS MD May 03, 2017 06:17
[2017-05-03 06:21] LABS: BASOPHILS % (AUTO) 0 % (0-10); EOSINOPHILS # (AUTO) 0.1 10^3/uL (0.0-0.3); EOSINOPHILS % (AUTO) 1 % (0-10); LYMPHOCYTES # (AUTO) 4.2 X 10^3 (1.0-4.0); LYMPHOCYTES % (AUTO) 33 % (12-44); MEAN CORPUSCULAR HGB CONC 33 G/DL (32-36); MEAN CORPUSCULAR VOLUME 90 FL (80-99); MEAN PLATELET VOLUME 10.6 FL (7.4-10.4); MONOCYTES % (AUTO) 8 % (0-12); NEUTROPHILS # (AUTO) 7.4 X 10^3 (1.8-7.8); NEUTROPHILS % (AUTO) 58 % (42-75); PLATELET COUNT 229 10^3/uL (130-400); RED BLOOD COUNT 2.07 10^6/uL (4.35-5.85); RED CELL DISTRIBUTION WIDTH 14.3 % (10.0-14.5); WHITE BLOOD COUNT 12.8 10^3/uL (4.3-11.0)
[2017-05-03 06:23] LABS: HEMATOCRIT 19 % (35-52); HEMOGLOBIN 6.1 G/DL (11.5-16.0); MEAN CORPUSCULAR HEMOGLOBIN 29 PG (25-34)
[2017-05-03] MEDS: RT-ADVAIR HFA 115/21 MCG PER PUFF IH SCH ×2 (07:03→17:51)
[2017-05-03] MEDS: NS IV 1000 ML 1,000 ML IV SCH (09:02)
[2017-05-03] MEDS: PANTOPRAZOLE 40 MG/10 ML (PROTONIX) VIAL IV SCH ×2 (09:03→16:26)
[2017-05-03] MEDS ORDERED: NS IV 500 ML 500 ML ONE (09:36)
--- NOTE | 2017-05-03 09:59 | Progress Note-Pre Operative ---
Pre-Operative Progress Note H&P Reviewed The H&P was reviewed, patient examined and no changes noted. Date Seen by Provider: May 03, 2017 Time Seen by Provider: 09:50 Date H&P Reviewed: May 03, 2017 Time H&P Reviewed: 09:30 Pre-Operative Diagnosis: Amemia, Upper GI Bleed AKIRA BRIGHT APRN May 03, 2017 9:59 am
--- NOTE | 2017-05-03 10:02 | Conscious Sedation/ASA ---
Conscious Sedation Pre-Proced Time Reviewed: 09:30 ASA Class: 2 Airway Mallampati Classification: (native appropriate class) I. II. III, IV Lungs Heart ASA score ASA 1: a normal healthy patient ASA 2: a patient with a mild systemic disease (mid diabetes, controlled hypertension, obesity ASA 3: a patient with a severe systemic disease that limits activity (angina , COPD, prior Myocardial infarction) ASA 4: a patient with an incapacitating disease that is a constant threat to life (CHF, renal failure) ASA 5: a moribund patient not expected to survive 24 hrs. (ruptured aneurysm) ASA 6: a declared brain patient whose organs are being harvested. For emergent operations, add the letter E after the classification Grade 3 Sedation Plan: Analgesia, Amnesia, Plan communicated to team members, Discussed options with patient/fam, Discussed risks with patient/fam Note The patient is an appropriate candidate to undergo the planned procedure, sedation, and anesthesia. The patient immediately re-assessed prior to indication. AKIRA BRIGHT APRN May 03, 2017 10:02 am
[2017-05-03] MEDS ORDERED: LIDOCAINE JELLY 2% (XYLOCAINE) 5 ML TUBE ONE (10:07)
[2017-05-03] MEDS ORDERED: fentaNYL INJECTION 100 MCG/2 ML AMP ONE (10:08)
[2017-05-03] MEDS ORDERED: hydrALAZINE (APESOLINE) 20 MG/ML VIAL ONE (10:08)
[2017-05-03] MEDS ORDERED: MIDAZOLAM 2 MG/2 ML (VERSED) VIAL ONE ×3 (10:08)
[2017-05-03] MEDS ORDERED: NS IV 500 ML 500 ML IV PRN (10:15)
[2017-05-03] MEDS ORDERED: NS IV 1000 ML 1,000 ML IV PRN (10:20)
[2017-05-03] MEDS ORDERED: HURRICAINE EXT TUBE (BENZOCAINE) XX PRN (10:30)
--- NOTE | 2017-05-03 10:35 | Conscious Sedation/ASA ---
Conscious Sedation Pre-Proced Time Reviewed: 09:30 ASA Class: 2 Airway Mallampati Classification: ([place] appropriate class) I. II. III, IV Lungs Heart ASA score ASA 1: a normal healthy patient ASA 2: a patient with a mild systemic disease (mid diabetes, controlled hypertension, obesity ASA 3: a patient with a severe systemic disease that limits activity (angina , COPD, prior Myocardial infarction) ASA 4: a patient with an incapacitating disease that is a constant threat to life (CHF, renal failure) ASA 5: a moribund patient not expected to survive 24 hrs. (ruptured aneurysm) ASA 6: a declared brain patient whose organs are being harvested. For emergent operations, add the letter E after the classification Grade 3 Sedation Plan: Analgesia, Amnesia, Plan communicated to team members, Discussed options with patient/fam, Discussed risks with patient/fam Note The patient is an appropriate candidate to undergo the planned procedure, sedation, and anesthesia. The patient immediately re-assessed prior to indication. CLAUDIA HEADLEY MD May 03, 2017 10:35 am
[2017-05-03] MEDS: fentaNYL INJECTION 100 MCG/2 ML AMP IVP PRN ×2 (10:40→10:46)
[2017-05-03] MEDS: MIDAZOLAM 2 MG/2 ML (VERSED) VIAL IVP PRN ×4 (10:45→10:52)
--- NOTE | 2017-05-03 11:21 | Progress Note-Post Operative ---
Post-Operative Progess Note Surgeon (s)/Coconut Boiler (s) Surgeon CLAUDIA HEADLEY MD Coconut Boiler: none Pre-Operative Diagnosis Amemia, Upper GI Bleed Post-Operative Diagnosis esophageal candidiasis, reflux esophagitis(class B), moderate to severe gastritis with multiple erosions, no active bleed. Procedure & Operative Findings Date of Procedure 05/03/17 Procedure Performed/Findings EGD with bx and brushings Anesthesia Type CS Estimated Blood Loss Estimated blood loss (mL): minimal Specimens/Packing Specimens Removed esophageal brushing, GE jxn, antrum CLAUDIA HEADLEY MD May 03, 2017 11:21 am
[2017-05-03] MEDS ORDERED: FLUCONAZOLE 100 MG/50 ML 50 ML IV NR (11:30)
[2017-05-03] MEDS ORDERED: LIDOCAINE JELLY 2% (XYLOCAINE) 5 ML TUBE TOP PRN (11:50)
[2017-05-03] MEDS: inSUlin (REGULAR) HUMAN 1 UNIT/0.01 ML (CHARGE PER UNIT) SC SCH ×3 (12:02→21:17)
--- NOTE | 2017-05-03 14:14 | OPERATIVE REPORT ---
DATE OF SERVICE: 05/02/2017 ADMITTING PHYSICIAN: Dr. Barreto. PREOPERATIVE DIAGNOSIS: Upper gastrointestinal bleeding. POSTOPERATIVE DIAGNOSES: Reflux esophagitis class B, yellow plaques consistent with esophageal candidiasis. No hiatal hernia, moderate to severe gastritis with multiple small erosions throughout the antrum and pylorus of the stomach. However, no active bleeding. PROCEDURE: EGD with biopsy. SURGEON: Dr. Headley. ANESTHESIA: Conscious sedation. ESTIMATED BLOOD LOSS: Minimal. FINDINGS: Reflux esophagitis class B yellow plaque-like structures throughout the esophagus consistent with esophageal candidiasis. No hiatal hernia, moderate to severe gastritis with multiple small erosions that were with overlying fibrin clots throughout the lower portion of the stomach as well as the pylorus with no active bleeding identified. No distal obstructions. DISPOSITION: The patient tolerated the procedure well. The patient is a 52-year-old female with multiple medical problems. She has a history of diabetes as well as oxygen dependent COPD. She presented to the Emergency Department with dark tarry stools as well as fatigue and was found to be anemic requiring blood transfusions. She does not report any epigastric pain and states that she does have some reflux; however, this tends to be mild. DESCRIPTION OF PROCEDURE: The patient was brought to the endoscopy suite, laid in the left lateral decubitus position with the head slightly elevated. After adequate IV pain and sedative medications and conscious sedation anesthesia, the mouthpiece was applied. Endoscope was placed in the mouth, visualizing the pharynx and hypopharyngeal region. Vocal cords, epiglottis and vallecula identified, appeared to be normal. The endoscope was then gently intubated in the esophageal opening, esophagus insufflated. The endoscope was then advanced through the first, second and third portions of the esophagus. In the distal half of the esophagus a yellow plaque-like lesions consistent with an esophageal candidiasis. Brushings were taken and sent for AFB and fungal culture and sensitivity. The endoscope was then advanced to the GE junction where a reflux esophagitis class B identified. There were no ulcers or strictures identified in this region. A biopsy was taken with forceps with visualization of good hemostasis. The endoscope was then easily advanced in the stomach and then endoscope retroflexed visualizing. No hiatal hernia. There was a moderate to severe gastritis more towards the lower half of the stomach with multiple small erosions with overlying fibrin clots which likely represents medication induced or type 5 ulceration. A biopsy was taken with forceps with visualization of good hemostasis. The endoscope was then advanced to the pylorus where these same erosions identified. No active bleeding. The endoscope was then advanced to the pylorus and the first and second portions of the duodenum, which appeared normal and no distal obstructions. The endoscope was then slowly withdrawn while taking a second look and suctioning residual air with no additional findings. The patient tolerated the procedure well. We will continue with medical therapy with Protonix and then start her on a clear liquid diet and advance to a ADA diet as tolerated. We will also start her on Diflucan which she will need to finish out a two week course as an outpatient as well. 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 Job ID: [id number] DocumentID: [id number] Dictated Date: 05/03/2017 11:16:56 Manager [employer] Date: 05/03/2017 14:14:39 Dictated By: CLAUDIA HEADLEY MD MTDD
[2017-05-03] MEDS: UMECLIDINIUM BROMIDE (INCRUSE ELLIPTA) 7'S IH SCH (14:20)
[2017-05-03] MEDS ORDERED: ALPRAZolam 1 MG (XANAX) TAB ONE (16:43)
[2017-05-03] MEDS: ALPRAZolam 1 MG (XANAX) TAB PO PRN (16:46)
[2017-05-03 19:18] LABS: HEMOGLOBIN 8.1 G/DL (11.5-16.0)
[2017-05-04] VITALS (7 sets, daily range): BP systolic 110–128; BP diastolic 61–82
[2017-05-04] MEDS: RT-ALBUTEROL SULF 2.5 MG/3 ML PRE-MIX VIAL INH SCH ×5 (02:46→19:21)
[2017-05-04] MEDS: PANTOPRAZOLE 40 MG/10 ML (PROTONIX) VIAL IV SCH ×2 (06:12→16:41)
[2017-05-04] MEDS: SUCRALFATE 1 GM (CARAFATE) TAB PO SCH ×4 (06:12→21:11)
[2017-05-04] MEDS: inSUlin (REGULAR) HUMAN 1 UNIT/0.01 ML (CHARGE PER UNIT) SC SCH ×4 (06:12→21:13)
[2017-05-04] MEDS: predniSONE 20 MG TAB PO SCH (06:12)
[2017-05-04 06:14] LABS: HEMOGLOBIN 7.6 G/DL (11.5-16.0); MEAN PLATELET VOLUME 10.4 FL (7.4-10.4); RED BLOOD COUNT 2.55 10^6/uL (4.35-5.85); WHITE BLOOD COUNT 13.7 10^3/uL (4.3-11.0)
[2017-05-04] MEDS: UMECLIDINIUM BROMIDE (INCRUSE ELLIPTA) 7'S IH SCH (08:00)
[2017-05-04] MEDS: RT-ADVAIR HFA 115/21 MCG PER PUFF IH SCH (08:00)
[2017-05-04] MEDS: ALPRAZolam 1 MG (XANAX) TAB PO PRN ×2 (08:53→19:13)
--- NOTE | 2017-05-04 11:11 | Progress Note (SOAP) ---
Subjective Subjective/Events-last exam Afebrile. Tachycardic. Reports feeling okay this morning. Review of Systems Date Seen by Provider: May 04, 2017 Time Seen by Provider: 09:45 Objective Exam Last Set of Vital Signs Vital Signs Date Time Temp Pulse Resp B/P (MAP) Pulse Ox O2 Delivery O2 Flow Rate FiO2 05/04/17 10:43 96 Nasal Cannula 2.00 05/04/17 08:00 98.6 103 22 121/66 (84) Capillary Refill : Less Than 3 Seconds I&O Intake and Output 05/04/17 00:00 Intake Total 5395 ml Balance 5395 ml Intake Oral 4245 ml IV Total 1150 ml # Voids 9 General: Alert, No Acute Distress Lungs: Clear to Auscultation, Normal Air Movement Heart: Regular Rate, No Murmurs Psych/Mental Status: Mental Status NL, Mood NL Results/Procedures Lab Laboratory Tests 05/03/17 11:59: Glucometer 154H 05/03/17 16:22: Glucometer 261H 05/03/17 18:58: Hemoglobin 8.1#L, Hematocrit 24L 05/03/17 21:02: Glucometer 277H 05/04/17 05:42: Glucometer 229H 05/04/17 06:05: White Blood Count 13.7H, Red Blood Count 2.55L, Hemoglobin 7.6L, Hematocrit 22L , Mean Corpuscular Volume 88, Mean Corpuscular Hemoglobin 30, Mean Corpuscular Hemoglobin Concent 34, Red Cell Distribution Width 15.0H, Platelet Count 223, Mean Platelet Volume 10.4 05/04/17 10:41: Glucometer 392H Procedures EGD Assessment/Plan Assessment/Plan Assessment & Plan 1. Significant anemia -Patient to be admitted for further H&H monitoring -Blood transfusion as necessary if hemoglobin less than 7 05/04- has received 2 units PRBC since admit, currently hemoglobin above 7 but still trending slightly down, monitor closely 2. Upper GI bleed suspected -Surgical consultation obtained through the emergency room and Dr. Hooper has been notified. 05/04 EGD done with noted reflux esophagitis class B, moderate to severe gastritis and esophageal candidiasis- continue pantoprazole, sucralfate, treat with diflucan 200 mg PO x 14 days 3. COPD--recent exacerbation with inpatient hospitalization -She'll be maintained on her home medications. At this point will continue with the prednisone due to her recent hospitalization with COPD exacerbation. 05/04 stable on home supplemental oxygen, will increase rate of prednisone taper given GI issues noted above and concern for contribution of steroids to her gastritis and candidiasis 4. DVT ppx- SCDs, no pharmacologic due to active bleeding Clinical Quality Measures DVT/VTE Risk/Contraindication: Risk Factor Score Per Nursin RFS Level Per Nursing on Admit: 3=High Contraindications-Pharm: Other *list below* Other: ANEMIA/GI BLEED JAISON NORWOOD MD May 04, 2017 11:11 am
[2017-05-04] MEDS: fluCOnazole (DIFLUCAN) 100 MG TAB PO SCH (11:42)
[2017-05-04] MEDS: GABAPENTIN 300 MG (NEURONTIN) CAP PO SCH ×2 (13:12→21:11)
[2017-05-04] MEDS ORDERED: PROMETHAZINE 25 MG (PHENERGAN) TAB PO PRN (13:45)
[2017-05-04] MEDS: ACETAMINOPHEN 500 MG TAB (TYLENOL) PO PRN (14:03)
[2017-05-04] MEDS ORDERED: MELATONIN 3 MG TABLET PO SCH (21:00)
[2017-05-04] MEDS: meTOprolol TARTRATE 25 MG (LOPRESSOR) TABLET PO SCH (21:12)
[2017-05-05] VITALS: BP 110/70
[2017-05-05 04:00] VITALS: BP 114/56
[2017-05-05] MEDS: ALPRAZolam 1 MG (XANAX) TAB PO PRN ×2 (05:01→13:24)
[2017-05-05] MEDS: ACETAMINOPHEN 500 MG TAB (TYLENOL) PO PRN (05:04)
[2017-05-05 06:02] LABS: HEMOGLOBIN 7.5 G/DL (11.5-16.0); MEAN PLATELET VOLUME 10.6 FL (7.4-10.4); RED BLOOD COUNT 2.58 10^6/uL (4.35-5.85); RED CELL DISTRIBUTION WIDTH 15.1 % (10.0-14.5); WHITE BLOOD COUNT 14.4 10^3/uL (4.3-11.0)
[2017-05-05 06:12] LABS: ALANINE AMINOTRANSFERASE 28 U/L (0-55); ALKALINE PHOSPHATASE 75 U/L (40-136); BILIRUBIN,TOTAL 0.4 MG/DL (0.1-1.0); BUN/CREATININE RATIO 27; CALCIUM 8.3 MG/DL (8.5-10.1); CARBON DIOXIDE 27 MMOL/L (21-32); CHLORIDE 107 MMOL/L (98-107); CREATININE SERUM 0.83 MG/DL (0.60-1.30); GFR ESTIMATED > 60; GLUCOSE 206 MG/DL (70-105); POTASSIUM 3.7 MMOL/L (3.6-5.0); SODIUM 140 MMOL/L (135-145); TOTAL PROTEIN 4.5 GM/DL (6.4-8.2)
[2017-05-05] MEDS ORDERED: predniSONE 10 MG TAB PO SCH (07:00)
[2017-05-05] MEDS: SUCRALFATE 1 GM (CARAFATE) TAB PO SCH ×2 (07:27→11:11)
[2017-05-05] MEDS: PANTOPRAZOLE 40 MG/10 ML (PROTONIX) VIAL IV SCH (07:27)
[2017-05-05] MEDS: inSUlin (REGULAR) HUMAN 1 UNIT/0.01 ML (CHARGE PER UNIT) SC SCH ×2 (07:28→11:11)
[2017-05-05] MEDS: RT-ADVAIR HFA 115/21 MCG PER PUFF IH SCH (07:32)
[2017-05-05] MEDS: RT-ALBUTEROL SULF 2.5 MG/3 ML PRE-MIX VIAL INH SCH ×2 (07:32→10:00)
[2017-05-05] MEDS: UMECLIDINIUM BROMIDE (INCRUSE ELLIPTA) 7'S IH SCH (07:33)
[2017-05-05 08:00] VITALS: BP 101/55
[2017-05-05] MEDS: fluCOnazole (DIFLUCAN) 100 MG TAB PO SCH (08:41)
[2017-05-05] MEDS: GABAPENTIN 300 MG (NEURONTIN) CAP PO SCH ×2 (08:41→13:24)
[2017-05-05] MEDS ORDERED: ARIPIPRAZOLE 15 MG (ABILIFY) TAB PO SCH (09:00)
[2017-05-05] MEDS ORDERED: FLUC100T6 PO (09:10)
[2017-05-05] MEDS ORDERED: SUCR1TAB PO (09:10)
[2017-05-05] MEDS ORDERED: PRD10T PO (09:10)
[2017-05-05] MEDS ORDERED: PANT40TA3 PO (09:10)
[2017-05-05] MEDS: meTOprolol TARTRATE 25 MG (LOPRESSOR) TABLET PO SCH (09:34)
[2017-05-05] MEDS ORDERED: POLYETHYLENE GLYCOL 17 GM (MIRALAX) PACK PO NR (11:00)
[2017-05-05 12:00] VITALS: BP 101/63
--- NOTE | 2017-05-05 20:06 | Discharge Summary ---
Diagnosis/Chief Complaint Date of Admission May 02, 2017 at 5:25 pm Date of Discharge May 05, 2017 at 2:15 pm Admission Diagnosis Admission Diagnosis 1. Significant anemia 2. Upper GI bleed suspected 3. COPD Discharge Diagnosis 1. Significant anemia -Patient to be admitted for further H&H monitoring -Blood transfusion as necessary if hemoglobin less than 7 05/04- has received 2 units PRBC since admit, currently hemoglobin above 7 but still trending slightly down, monitor closely 05/05 hemoglobin stable, no active bleeding noted on EGD, will discharge today with treatment as noted below 2. Upper GI bleed suspected -Surgical consultation obtained through the emergency room and Dr. Hooper has been notified. 05/04 EGD done with noted reflux esophagitis class B, moderate to severe gastritis and esophageal candidiasis- continue pantoprazole, sucralfate, treat with diflucan 200 mg PO x 14 days 3. COPD--recent exacerbation with inpatient hospitalization -She'll be maintained on her home medications. At this point will continue with the prednisone due to her recent hospitalization with COPD exacerbation. 05/04 stable on home supplemental oxygen, will increase rate of prednisone taper given GI issues noted above and concern for contribution of steroids to her gastritis and candidiasis Chief Complaint/HPI Chief Complaint/HPI 52-year-old female presents to [facility] emergency department after experiencing dizziness, not feeling well, and on further history change of stool coloration. Apparently she has noted dark stools recently and she denies any usage of medications that may have changed her stool color such as Pepto- Bismol. Patient was recently in the hospital after her COPD exacerbation and had been on steroids. Discharge Summary-Simple/Stand Procedures EGD Consultations Discharge Physical Examination Allergies: Coded Allergies: buspirone (Verified Allergy, Mild, 05/02/17) Made"legs Shaky" amitriptyline (Verified Allergy, Unknown, 05/02/17) " MAKES ME DO WEIRD THINGS LIKE WALK IN MY SLEEP AND HAVE HALLUCINATIONS." Vitals & I&Os Vital Sign - Last 12Hours Date Time Temp Pulse Resp B/P (MAP) Pulse Ox O2 Delivery O2 Flow Rate FiO2 05/05/17 14:15 05/05/17 12:00 97.8 86 20 98 Nasal Cannula 2.00 Intake and Output 05/05/17 00:00 Intake Total 3190 ml Balance 3190 ml General Appearance: Alert, No Acute Distress Respiratory: Clear to Auscultation, Normal Air Movement Cardiovascular: Regular Rate, No Murmurs Abdominal: Normal Bowel Sounds, No Tenderness, Other (mild distention) Neuro: Normal Speech Psych/Mental Status: Mental Status NL Hospital Course See final discharge diagnosis. Labs Laboratory Tests Test 05/03/17 21:02 05/04/17 05:42 05/04/17 06:05 05/04/17 10:41 Range/Units Glucometer 277 H 229 H 392 H 70-110 MG/DL White Blood Count 13.7 H 4.3-11.0 10^3/uL Red Blood Count 2.55 L 4.35-5.85 10^6/uL Hemoglobin 7.6 L 11.5-16.0 G/DL Hematocrit 22 L 35-52 % Mean Corpuscular Volume 88 80-99 FL Mean Corpuscular Hemoglobin 30 25-34 PG Mean Corpuscular Hemoglobin Concent 34 32-36 G/DL Red Cell Distribution Width 15.0 H 10.0-14.5 % Platelet Count 223 130-400 10^3/uL Mean Platelet Volume 10.4 7.4-10.4 FL Test 05/04/17 12:25 05/04/17 15:59 05/04/17 20:59 05/05/17 05:45 Range/Units Lab Scanned Report Transfusion Reaction Form [id number] Glucometer 326 H 249 H 225 H 70-110 MG/DL Test 05/05/17 05:46 05/05/17 11:08 Range/Units White Blood Count 14.4 H 4.3-11.0 10^3/uL Red Blood Count 2.58 L 4.35-5.85 10^6/uL Hemoglobin 7.5 L 11.5-16.0 G/DL Hematocrit 23 L 35-52 % Mean Corpuscular Volume 90 80-99 FL Mean Corpuscular Hemoglobin 29 25-34 PG Mean Corpuscular Hemoglobin Concent 32 32-36 G/DL Red Cell Distribution Width 15.1 H 10.0-14.5 % Platelet Count 257 130-400 10^3/uL Mean Platelet Volume 10.6 H 7.4-10.4 FL Sodium Level 140 135-145 MMOL/L Potassium Level 3.7 3.6-5.0 MMOL/L Chloride Level 107 98-107 MMOL/L Carbon Dioxide Level 27 21-32 MMOL/L Anion Gap 6 5-14 MMOL/L Blood Urea Nitrogen 22 H 7-18 MG/DL Creatinine 0.83 0.60-1.30 MG/DL Estimat Glomerular Filtration Rate > 60 BUN/Creatinine Ratio 27 Glucose Level 206 H 70-105 MG/DL Calcium Level 8.3 L 8.5-10.1 MG/DL Total Bilirubin 0.4 0.1-1.0 MG/DL Aspartate Amino Transf (AST/SGOT) 9 5-34 U/L Alanine Aminotransferase (ALT/SGPT) 28 0-55 U/L Alkaline Phosphatase 75 40-136 U/L Total Protein 4.5 L 6.4-8.2 GM/DL Albumin 3.0 L 3.2-4.5 GM/DL Glucometer 223 H 70-110 MG/DL Discharge Instructions to patient/family Please see electronic discharge instructions given to patient. Discharge Medications Reviewed and agree with Discharge Medication list on patient's Discharge Instruction sheet Clinical Quality Measures DVT/VTE Risk/Contraindication: Risk Factor Score Per Nursin RFS Level Per Nursing on Admit: 3=High Contraindications-Pharm: Other *list below* Other: ANEMIA/GI BLEED Copy Copies To 1: SHEBA Gamez BETHANY N MD May 05, 2017 8:06 pm
== END 2017-05-05 14:15 | disposition home or self-care (01) | DRG 812 ==
LOC: EDUNIT# 16:17 → ER 16:18 → 4TH 17:25
PROVIDERS: ADMIT Family Medicine; ATTEND Family Medicine
PROC: 0DB48ZX Excision of Esophagogastric Junction, Via Natural or Artificial Opening Endoscopic, Diagnostic (ICD-10-PCS; principal; 2017-05-02)
PROC: 0DB78ZX Excision of Stomach, Pylorus, Via Natural or Artificial Opening Endoscopic, Diagnostic (ICD-10-PCS; 2017-05-02)
DX: D64.9 Anemia, unspecified (principal); K21.0 Gastro-esophageal reflux disease with esophagitis; B37.81 Candidal esophagitis; K25.9 Gastric ulcer, unspecified as acute or chronic, without hemorrhage or perforation; K29.70 Gastritis, unspecified, without bleeding; J44.9 Chronic obstructive pulmonary disease, unspecified; I10 Essential (primary) hypertension; F17.210 Nicotine dependence, cigarettes, uncomplicated; G43.909 Migraine, unspecified, not intractable, without status migrainosus; F41.9 Anxiety disorder, unspecified; F32.9 Major depressive disorder, single episode, unspecified; E11.9 Type 2 diabetes mellitus without complications; E78.5 Hyperlipidemia, unspecified; E78.1 Pure hyperglyceridemia; G47.00 Insomnia, unspecified; Z99.81 Dependence on supplemental oxygen
CPT/HCPCS: 36415; 80048; 80053; 82962; 83735; 85014; 85018; 85025; 85027; 86850; 86900; 86901; 86920; 87101; 87106; 87116; 94640; 94664; 94760; 96374; 96375; 99284

== ENCOUNTER 2017-05-23 15:50 | Observation (INO) | payer OTHER ==
[~2017-05-23] VITALS: Ht 175.3 cm; Wt 107.0 kg
[~2017-05-23 15:50] MED LIST changes: +FLUC100T6 PO; +PANT40TA3 PO; +SUCR1TAB PO
[2017-05-23] MEDS ORDERED: RT-ALBUTEROL/IPRATROPIUM 3 ML (DUONEB) VIAL INH ONE (16:00)
[2017-05-23 17:13] LABS: BILIRUBIN,URINE NEGATIVE (NEGATIVE); CLARITY,URINE CLEAR; COLOR,URINE YELLOW; GLUCOSE, URINE (UA) NEGATIVE (NEGATIVE); KETONES,URINE NEGATIVE (NEGATIVE); LEUKOCYTE ESTERASE ,URINE NEGATIVE (NEGATIVE); NITRITE,URINE NEGATIVE (NEGATIVE); PH,URINE 7 (5-9); PROTEIN,URINE NEGATIVE (NEGATIVE); UROBILINOGEN,URINE NORMAL (NORMAL)
[2017-05-23 17:16] LABS: BASOPHILS % (AUTO) 0 % (0-10); EOSINOPHILS # (AUTO) 0.1 10^3/uL (0.0-0.3); EOSINOPHILS % (AUTO) 2 % (0-10); HEMATOCRIT 33 % (35-52); LYMPHOCYTES # (AUTO) 1.5 X 10^3 (1.0-4.0); LYMPHOCYTES % (AUTO) 20 % (12-44); MEAN CORPUSCULAR HEMOGLOBIN 29 PG (25-34); MEAN CORPUSCULAR HGB CONC 33 G/DL (32-36); MEAN CORPUSCULAR VOLUME 87 FL (80-99); MEAN PLATELET VOLUME 9.9 FL (7.4-10.4); MONOCYTES # (AUTO) 0.8 X 10^3 (0.0-1.0); MONOCYTES % (AUTO) 11 % (0-12); NEUTROPHILS % (AUTO) 67 % (42-75); PLATELET COUNT 334 10^3/uL (130-400); RED CELL DISTRIBUTION WIDTH 14.6 % (10.0-14.5); WHITE BLOOD COUNT 7.5 10^3/uL (4.3-11.0)
[2017-05-23 17:27] LABS: BACTERIA,URINE NEGATIVE /HPF; RBC,URINE 0-2 /HPF; SQUAMOUS EPITHELIAL CELL,UR 25-50 /HPF; WBC,URINE 0-2 /HPF
[2017-05-23 17:29] LABS: ALANINE AMINOTRANSFERASE 19 U/L (0-55); ALKALINE PHOSPHATASE 73 U/L (40-136); BILIRUBIN,TOTAL 0.3 MG/DL (0.1-1.0); BUN/CREATININE RATIO 5; CALCIUM 9.6 MG/DL (8.5-10.1); CARBON DIOXIDE 22 MMOL/L (21-32); CHLORIDE 108 MMOL/L (98-107); CREATININE SERUM 0.87 MG/DL (0.60-1.30); GFR ESTIMATED > 60; GLUCOSE 194 MG/DL (70-105); POTASSIUM 3.1 MMOL/L (3.6-5.0); SODIUM 140 MMOL/L (135-145); TOTAL PROTEIN 6.6 GM/DL (6.4-8.2)
--- NOTE | 2017-05-23 17:34 | ED Respiratory ---
General Chief Complaint: Respiratory Problems Stated Complaint: SOB Nursing Triage Note: pt c/o soa worsening since thursday. duonebs at home aren't improving distress. vomiting et diarrhea since thursday. she was seen at [facility] on thursday. she normally wears o2, but left it in the car. Source: patient Exam Limitations: no limitations History of Present Illness Date Seen by Provider: May 23, 2017 Time Seen by Provider: 17:29 Initial Comments The patient is a 52-year-old female known to me. She reports that she has been sick since last Thursday. Primarily her symptoms were that of diarrhea. She was seen at [facility] on Thursday for the diarrhea. She states that they considered admission but did not do so because she was not having any respiratory symptoms late on she began to experience more and more wheezing. She has been using her nebulizer. She states that she is coughing up phlegm but so far it has been clear. She is not aware as to whether she has had a fever or not. She feels quite tight on the right. Timing/Duration: week Prior Episodes/Possible Cause: frequent episodes Modifying Factors: Improves With Albuterol Nebulizer Associated Symptoms: shortness of breath, wheezing Allergies and Home Medications Allergies Coded Allergies: buspirone (Verified Allergy, Mild, 05/02/17) Made"legs Shaky" amitriptyline (Verified Allergy, Unknown, 05/02/17) " MAKES ME DO WEIRD THINGS LIKE WALK IN MY SLEEP AND HAVE HALLUCINATIONS." Home Medications Albuterol Sulfate 1 Puff Puff, 2 PUFF IH Q4H PRN for SHORTNESS OF BREATH, ( Reported) 1 PUFF = 90 MCG Aripiprazole 15 Mg Tablet, 15 MG PO DAILY, (Reported) Dulaglutide 0.75 Mg/0.5 Ml Pen.injctr, 0.75 MG SQ Th, (Reported) Duloxetine HCl 60 Mg Capsule.dr, 120 MG PO DAILY, (Reported) TAKES 2 (60MG) CAPSULES Fluconazole 100 Mg Tablet, 200 MG PO DAILY Prescribed by: JAISON NORWOOD on 05/05/17 0910 Fluticasone/Salmeterol 1 Each Blst.w.dev, 1 PUFF IH BID, (Reported) Gabapentin 300 Mg Capsule, 300 MG PO TID, (Reported) Glimepiride 1 Mg Tablet, 1 MG PO DAILY PRN for WHEN TAKING PREDNISONE, (Reported ) Ipratropium/Albuterol Sulfate 3 Ml Ampul.neb, 3 ML IH QID PRN for SHORTNESS OF BREATH, (Reported) Melatonin 5 Mg Capsule, 5 MG PO HS, (Reported) Metoprolol Tartrate 25 Mg Tablet, 12.5 MG PO BID, (Reported) TAKES 1/2 (25MG) TABLET Multivitamin 1 Each Tablet, 1 TAB PO DAILY, (Reported) Pantoprazole Sodium 40 Mg Tablet.dr, 40 MG PO BID Prescribed by: JAISON NORWOOD on 05/05/17909 Prednisone 10 Mg Tab, 0 PO UD Take 3 tabs (30mg) daily, decrease by 1 tab (10mg) daily. Prescribed by: JAISON NORWOOD on 05/05/17909 Sucralfate 1 Gm Tablet, 1 GM PO ACHS Prescribed by: JAISON NORWOOD on 05/05/17909 Tiotropium [place] 1 Inh Aerp, 1 CAP IH DAILY, (Reported) Topiramate 100 Mg Tablet, 100 MG PO BID, (Reported) LAST FILLED #60 02-06-17 Zolpidem Tartrate 6.25 Mg Tab.mphase, 6.25 MG PO HS PRN for SLEEP, (Reported) LAST FILLED #15 03-17-17 Patient Home Medication List Home Medication List Reviewed: Yes Constitutional: see HPI EENTM: no symptoms reported Respiratory: see HPI, cough, dyspnea on exertion, phlegm, short of breath, wheezing Cardiovascular: no symptoms reported Gastrointestinal: diarrhea Genitourinary: no symptoms reported Psychiatric/Neurological: No Symptoms Reported Hematologic/Lymphatic: No Symptoms Reported Immunological/Allergic: no symptoms reported Past Msnoquu-Vuysix-Tpzsru Hx Patient Social History Drug of Choice: +IV METH past hx Type Used: Cigarettes 2nd Hand Smoke Exposure: Yes Recent Foreign Travel: No Contact w/Someone Who Travel: No Recent Infectious Disease Expo: No Recent Hopitalizations: Yes Immunizations Up To Date Tetanus Booster (TDap): Unknown Date of Pneumonia Vaccine: Dec 08, 2011 Date of Influenza Vaccine: Dec 31, 2016 Seasonal Allergies Seasonal Allergies: No Surgeries History of Surgeries: No Respiratory History of Respiratory Disorde: Yes (O2 AT 2-3L/NC) Respiratory Disorders: Asthma, COPD, Emphysema Currently Using CPAP: No Currently Using BIPAP: Yes (PT. STATED) Cardiovascular History of Cardiac Disorders: Yes (HAD HEART CATH. 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 Genitourinary History of Genitourinary Disor: No Gastrointestinal History of Gastrointestinal Di: Yes Gastrointestinal Disorders: Chronic Constipation, Chronic Diarrhea Musculoskeletal History of Musculoskeletal Dis: Yes (chronic shoulder and neck pain) Endocrine History of Endocrine Disorders: Yes (DM- only while on steriods per pt) Endocrine Disorders: Diabetes, Non-Insulin dep HEENT History of HEENT Disorders: No Cancer History of Cancer: No Psychosocial History of Psychiatric Problem: Yes Behavioral Health Disorders: Anxiety, Depression Integumentary History of Skin or Integumenta: No Blood Transfusions History of Blood Disorders: No Adverse Reaction to a Blood Tr: No Family Medical History Significant Family History: No Pertinent Family Hx Family Medial History: Cancer 03 MOTHER, Onset:66 (LUNG ) 09 BROTHER (LUNG ) Congestive heart failure 03 FATHER Physical Exam Vital Signs Vital Signs - First Documented 05/23/17 05/23/17 16:30 16:52 Temp 98.7 Pulse 123 Resp 32 B/P (MAP) 151/100 (117) Pulse Ox 98 O2 Delivery Nasal Cannula O2 Flow Rate 2.00 Capillary Refill : Less Than 3 Seconds General Appearance: moderate distress Eyes: Bilateral Eye Normal Inspection HEENT: normal ENT inspection Neck: full range of motion Respiratory: decreased breath sounds, accessory muscle use, wheezing (right sided greater than left) Cardiovascular: normal peripheral pulses, regular rate, rhythm, no edema, no gallop, no JVD, no murmur Gastrointestinal: normal bowel sounds, non tender, soft, no organomegaly, no pulsatile mass Extremities: normal range of motion, non-tender, normal inspection, no pedal edema, no calf tenderness, normal capillary refill, pelvis stable Neurologic/Psychiatric: 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, no motor/sensory deficits, alert, normal mood/affect, oriented x 3 Skin: normal color, warm/dry, cyanosis, cool, diaphoresis, damp Lymphatic: no adenopathy, axilla node tender (R), axilla node tender (L), inguinal node tender (R), inguinal node tender (L) Progress/Results/Core Measures Suspected Sepsis Recent Fever Within 48 Hours: Yes Infection Criteria Present: Suspected New Infection New/Unexplained Altered Menta: No Sepsis Screen: Possible Sepsis Risk Sepsis Diagnosis: SIRS Temperature:98.7 Pulse: 123 Respiratory Rate: 32 Laboratory Tests 05/23/17 16:58: White Blood Count 7.5 Blood Pressure 151 /100 Mean: 117 Laboratory Tests 05/23/17 16:58: Creatinine 0.87, Platelet Count 334, Total Bilirubin 0.3 Results/Orders Lab Results Laboratory Tests Test 05/23/17 16:58 05/23/17 17:04 Range/Units White Blood Count 7.5 4.3-11.0 10^3/uL Red Blood Count 3.80 L 4.35-5.85 10^6/uL Hemoglobin 11.0 L 11.5-16.0 G/DL Hematocrit 33 L 35-52 % Mean Corpuscular Volume 87 80-99 FL Mean Corpuscular Hemoglobin 29 25-34 PG Mean Corpuscular Hemoglobin Concent 33 32-36 G/DL Red Cell Distribution Width 14.6 H 10.0-14.5 % Platelet Count 334 130-400 10^3/uL Mean Platelet Volume 9.9 7.4-10.4 FL Neutrophils (%) (Auto) 67 42-75 % Lymphocytes (%) (Auto) 20 12-44 % Monocytes (%) (Auto) 11 0-12 % Eosinophils (%) (Auto) 2 0-10 % Basophils (%) (Auto) 0 0-10 % Neutrophils # (Auto) 5.0 1.8-7.8 X 10^3 Lymphocytes # (Auto) 1.5 1.0-4.0 X 10^3 Monocytes # (Auto) 0.8 0.0-1.0 X 10^3 Eosinophils # (Auto) 0.1 0.0-0.3 10^3/uL Basophils # (Auto) 0.0 0.0-0.1 10^3/uL Sodium Level 140 135-145 MMOL/L Potassium Level 3.1 L 3.6-5.0 MMOL/L Chloride Level 108 H 98-107 MMOL/L Carbon Dioxide Level 22 21-32 MMOL/L Anion Gap 10 5-14 MMOL/L Blood Urea Nitrogen 4 L 7-18 MG/DL Creatinine 0.87 0.60-1.30 MG/DL Estimat Glomerular Filtration Rate > 60 BUN/Creatinine Ratio 5 Glucose Level 194 H 70-105 MG/DL Calcium Level 9.6 8.5-10.1 MG/DL Total Bilirubin 0.3 0.1-1.0 MG/DL Aspartate Amino Transf (AST/SGOT) 13 5-34 U/L Alanine Aminotransferase (ALT/SGPT) 19 0-55 U/L Alkaline Phosphatase 73 40-136 U/L Total Protein 6.6 6.4-8.2 GM/DL Albumin 4.0 3.2-4.5 GM/DL Urine Color YELLOW Urine Clarity CLEAR Urine pH 7 5-9 Urine Specific [place] 1.005 L 1.016-1.022 Urine Protein NEGATIVE NEGATIVE Urine Glucose (UA) NEGATIVE NEGATIVE Urine Ketones NEGATIVE NEGATIVE Urine Nitrite NEGATIVE NEGATIVE Urine Bilirubin NEGATIVE NEGATIVE Urine Urobilinogen NORMAL NORMAL MG/DL Urine Leukocyte Esterase NEGATIVE NEGATIVE Urine RBC (Auto) 1+ H NEGATIVE Urine RBC 0-2 /HPF Urine WBC 0-2 /HPF Urine Squamous Epithelial Cells 25-50 H /HPF Urine Renal Epithelial Cells NONE /HPF Urine Crystals NONE /LPF Urine Bacteria NEGATIVE /HPF Urine Casts NONE /LPF Urine Mucus NEGATIVE /LPF Urine Culture Indicated NO My Orders Orders - LUKE MAI MD Albuterol/Ipra Inhalation Soln (Duoneb I (05/23/17 16:00) Chest 1 View, Ap/Pa Only (05/23/17 15:54) Comprehensive Metabolic Panel (05/23/17 15:54) Ua Culture If Indicated (05/23/17 15:54) Svn Sm Volume Nebulizer Rt-Rfs (05/23/17 15:54) Cbc With Automated Diff (05/23/17 17:10) Medications Given in ED Current Medications Medications Dose Ordered Sig/Vladimir Route Start Time Stop Time Status Last Admin Dose Admin Albuterol/ Ipratropium 3 ml ONCE ONCE INH 05/23/17 16:00 05/23/17 16:01 DC 05/23/17 16:52 3 ML Vital Signs/I&O Vital Sign - Last 12Hours 05/23/17 05/23/17 16:30 16:52 Temp 98.7 Pulse 123 Resp 32 B/P (MAP) 151/100 (117) Pulse Ox 98 O2 Delivery Nasal Cannula O2 Flow Rate 2.00 Capillary Refill : Less Than 3 Seconds Blood Pressure Mean: 117 Departure Impression Impression: Primary Impression: COPD and exacerbation Additional Impression: diarrhea Disposition: ADMITTED INPATIENT Condition: Stable/Unchanged Admissions Decision to Admit Reason: Admit from ER (General) Decision to Admit/Date: May 23, 2017 Time/Decision to Admit Time: 17:46 Departure-Patient Inst. Referrals: [facility]/Elena (PCP) Primary Care Physician ALIZA CARTER (Family) Primary Care Physician LUKE MAI MD May 23, 2017 17:34
--- NOTE | 2017-05-23 18:22 | Diagnostic Imaging Report ---
PATIENT HISTORY: Nausea, vomiting, shortness of air. TECHNIQUE: Single frontal view of the chest. COMPARISON: 04/29/2017. FINDINGS: Linear opacities seen in the left midlung, felt to represent atelectasis. Hazy opacity in the left lung base is felt to be secondary to overlying soft tissue. No large pleural effusion or pneumothorax is seen. The cardiac silhouette appears mildly large. No acute osseous abnormality is seen. IMPRESSION: Atelectasis in the left lung with no new consolidation seen. Mild cardiomegaly. Dictated by: Dictated on workstation # [id number]
[2017-05-23] MEDS ORDERED: RT-ALBUTEROL/IPRATROPIUM 3 ML (DUONEB) VIAL IH PRN (20:30)
[2017-05-23] MEDS ORDERED: CATHETER FLUSH 10 ML SYR IV PRN (20:30)
[2017-05-23 20:50] VITALS: BP 142/90
[2017-05-23] MEDS ORDERED: IBUPROFEN 600 MG (MOTRIN) TAB PO PRN (21:00)
[2017-05-23] MEDS: NS IV 1000 ML 1,000 ML IV SCH (22:05)
[2017-05-23] MEDS: predniSONE 20 MG TAB PO SCH (22:06)
[2017-05-23] MEDS: CATHETER FLUSH 10 ML SYR IV SCH (22:07)
[2017-05-23] MEDS: GABAPENTIN 300 MG (NEURONTIN) CAP PO SCH (22:07)
[2017-05-23] MEDS: MELATONIN 3 MG TABLET PO SCH (22:07)
[2017-05-23 23:35] VITALS: BP 134/74
[2017-05-24] MEDS: RT-ALBUTEROL/IPRATROPIUM 3 ML (DUONEB) VIAL IH SCH ×6 (02:07→23:06)
[2017-05-24 04:00] VITALS: BP 154/91
[2017-05-24 06:03] LABS: BASOPHILS % (AUTO) 0 % (0-10); EOSINOPHILS % (AUTO) 0 % (0-10); HEMATOCRIT 29 % (35-52); HEMOGLOBIN 9.9 G/DL (11.5-16.0); LYMPHOCYTES # (AUTO) 0.5 X 10^3 (1.0-4.0); LYMPHOCYTES % (AUTO) 9 % (12-44); MEAN CORPUSCULAR HEMOGLOBIN 29 PG (25-34); MEAN CORPUSCULAR HGB CONC 34 G/DL (32-36); MEAN CORPUSCULAR VOLUME 85 FL (80-99); MEAN PLATELET VOLUME 10.1 FL (7.4-10.4); MONOCYTES # (AUTO) 0.1 X 10^3 (0.0-1.0); MONOCYTES % (AUTO) 2 % (0-12); NEUTROPHILS # (AUTO) 5.2 X 10^3 (1.8-7.8); NEUTROPHILS % (AUTO) 89 % (42-75); PLATELET COUNT 282 10^3/uL (130-400); RED BLOOD COUNT 3.44 10^6/uL (4.35-5.85); RED CELL DISTRIBUTION WIDTH 14.5 % (10.0-14.5); WHITE BLOOD COUNT 5.8 10^3/uL (4.3-11.0)
[2017-05-24 06:23] LABS: ANISOCYTOSIS SLIGHT; BAND NEUTROPHILS 1 %; BASOPHILS % (MANUAL) 0 %; EOSINOPHILS % (MANUAL) 0 %; LYMPHOCYTES % (MANUAL) 4 %; MONOCYTES % (MANUAL) 2 %; NEUTROPHILS % (MANUAL) 91 %; REACTIVE LYMPHOCYTES 2 %
[2017-05-24] MEDS ORDERED: RT-ALBUTEROL/IPRATROPIUM 3 ML (DUONEB) VIAL IH SCH (07:00)
[2017-05-24] MEDS: CATHETER FLUSH 10 ML SYR IV SCH ×3 (07:40→22:00)
[2017-05-24 08:00] VITALS: BP 123/77
[2017-05-24] MEDS: predniSONE 20 MG TAB PO SCH (08:01)
[2017-05-24] MEDS: NICOTINE 21 MG (NICODERM) PATCH TD SCH (08:02)
[2017-05-24] MEDS: GABAPENTIN 300 MG (NEURONTIN) CAP PO SCH ×3 (08:02→21:29)
[2017-05-24] MEDS ORDERED: KCL 20 MEQ TAB (K-DUR) PO NR (08:30)
[2017-05-24] MEDS ORDERED: ZOLPIDEM 5 MG (AMBIEN) TAB PO PRN (08:45)
[2017-05-24] MEDS: ARIPIPRAZOLE 15 MG (ABILIFY) TAB PO SCH (08:57)
[2017-05-24] MEDS: DULoxetine 30 MG (CYMBALTA) CAP PO SCH (08:57)
[2017-05-24] MEDS: toPIRamate 100 MG (TOPAMAX) TAB PO SCH ×2 (08:58→21:30)
[2017-05-24] MEDS: PANTOPRAZOLE 40 MG (PROTONIX) TAB PO SCH ×2 (08:58→21:29)
[2017-05-24] MEDS: ONDANSETRON 4 MG (ZOFRAN) ORAL DISSOLVE TAB PO PRN ×2 (08:58→15:06)
[2017-05-24] MEDS: LORazepam 0.5 MG (ATIVAN) TABLET PO PRN ×3 (08:58→22:50)
[2017-05-24] MEDS: meTOprolol TARTRATE 25 MG (LOPRESSOR) TABLET PO SCH ×2 (08:59→21:30)
[2017-05-24] MEDS: RT-ADVAIR HFA 115/21 MCG PER PUFF IH SCH ×2 (09:07→18:58)
[2017-05-24] MEDS: SUCRALFATE 1 GM (CARAFATE) TAB PO SCH ×3 (10:45→21:29)
[2017-05-24] MEDS: NS IV 1000 ML 1,000 ML IV SCH (10:46)
[2017-05-24 11:10] LABS: BUN/CREATININE RATIO 9; CALCIUM 9.1 MG/DL (8.5-10.1); CARBON DIOXIDE 20 MMOL/L (21-32); CHLORIDE 108 MMOL/L (98-107); CREATININE SERUM 0.82 MG/DL (0.60-1.30); GFR ESTIMATED > 60; GLUCOSE 357 MG/DL (70-105); POTASSIUM 4.2 MMOL/L (3.6-5.0); SODIUM 138 MMOL/L (135-145)
[2017-05-24 12:00] VITALS: BP 119/69
[2017-05-24] MEDS ORDERED: inSUlin (REGULAR) HUMAN 1 UNIT/0.01 ML (CHARGE PER UNIT) SC SCH (12:15)
[2017-05-24] MEDS ORDERED: inSUlin ASPART (NovoLOG) 1 UNIT/0.01 ML (CHARGE PER UNIT) ONE (12:22)
[2017-05-24] MEDS: inSUlin ASPART (NovoLOG) 1 UNIT/0.01 ML (CHARGE PER UNIT) SC SCH ×3 (12:25→21:30)
[2017-05-24] MEDS ORDERED: SUCR1TAB PO (13:54)
[2017-05-24] MEDS ORDERED: PANT40TA3 PO (13:54)
[2017-05-24] MEDS ORDERED: PSYL1PAC10 PO (13:54)
--- NOTE | 2017-05-24 14:30 | History & Physicial ([facility]) ---
HPI History of Present Illness: 52 yo female presented to ER after about a week of diarrhea and vomiting with temperature up to 100 a couple of days ago. Starting about 2-3 days ago she also began to have worsening shortness of breath and cough. She reports regularly using her inhalers and has not been out of any medications. She was recently discharged from the hospital last month after a GI bleed, candidal esophagitis and completed a steroid taper for COPD exacerbation more than a week ago and states her breathing was okay after ending prednisone, just restarted with shortness of breath recently. Date seen by provider: May 24, 2017 Time Seen by Provider: 11:26 Attending Physician Jaison Martinez MD [facility] [place] Consult Date of Admission May 23, 2017 at 5:43 pm Home Medications Home Medications Reviewed patient Home Medication Reconciliation performed by pharmacy medication reconciliations turfgrass technician and/or nursing. Patients Allergies have been reviewed. Allergies Coded Allergies: buspirone (Verified Allergy, Mild, 05/02/17) Made"legs Shaky" amitriptyline (Verified Allergy, Unknown, 05/02/17) " MAKES ME DO WEIRD THINGS LIKE WALK IN MY SLEEP AND HAVE HALLUCINATIONS." NKJ-Vxdsba-[place]pef Hx Patient Social History Alcohol Use: Denies Use Recreational Drug Use: No (4 YRS AGO) Drug of Choice: +IV METH past hx Smoking Status: Current Everyday Smoker Type Used: Cigarettes 2nd Hand Smoke Exposure: Yes Recent Foreign Travel: No Contact w/other who traveled: No Recent Hopitalizations: Yes Recent Infectious Disease Expo: No Physical Abuse Screen: No Sexual Abuse: No Immunizations Up To Date Tetanus Booster (TDap): Unknown Date of Pneumonia Vaccine: Dec 08, 2011 Date of Influenza Vaccine: Dec 31, 2016 Past Medical History Past Medical History 1. HTN 2. COPD 3. Tobaccoism 4.Chronic Migraines- with rebound headaches secondary to overuse of tylenol and ibuprofen 5. Anxiety 6. Depression 7. Endometrial hypertrophy 8. DM- II, pt. stopped taking her medications 9. HLP- with elevated triglycerides 10. Chronic Insomnia 11. Gastritis 12. Methamphetamine abuse with most recent drug screen in clinic 09/19 positive for methamphetamine 13. Several admissions for overdose of benzodiazapine Past Surgical History 1. EGD- Gastritis Loja 2. Colonoscopy- Loja Family Medical History Significant Family History: Heart Disease, Cancer (lung) Review of Systems ([facility]) Constitutional: fever, malaise Respiratory: cough, short of breath Cardiovascular: chest pain (on right front and back since starting to have more trouble breathing) Gastrointestinal: diarrhea, vomiting Genitourinary: no symptoms reported Musculoskeletal: no symptoms reported Skin: no symptoms reported Psychiatric/Neurological: Anxiety Reviewed Test Results Reviewed Test Results Lab Laboratory Tests Test 05/23/17 16:58 05/23/17 17:04 05/23/17 21:07 05/24/17 05:26 Range/Units White Blood Count 7.5 4.3-11.0 10^3/uL Red Blood Count 3.80 L 4.35-5.85 10^6/uL Hemoglobin 11.0 L 11.5-16.0 G/DL Hematocrit 33 L 35-52 % Mean Corpuscular Volume 87 80-99 FL Mean Corpuscular Hemoglobin 29 25-34 PG Mean Corpuscular Hemoglobin Concent 33 32-36 G/DL Red Cell Distribution Width 14.6 H 10.0-14.5 % Platelet Count 334 130-400 10^3/uL Mean Platelet Volume 9.9 7.4-10.4 FL Neutrophils (%) (Auto) 67 42-75 % Lymphocytes (%) (Auto) 20 12-44 % Monocytes (%) (Auto) 11 0-12 % Eosinophils (%) (Auto) 2 0-10 % Basophils (%) (Auto) 0 0-10 % Neutrophils # (Auto) 5.0 1.8-7.8 X 10^3 Lymphocytes # (Auto) 1.5 1.0-4.0 X 10^3 Monocytes # (Auto) 0.8 0.0-1.0 X 10^3 Eosinophils # (Auto) 0.1 0.0-0.3 10^3/uL Basophils # (Auto) 0.0 0.0-0.1 10^3/uL Sodium Level 140 135-145 MMOL/L Potassium Level 3.1 L 3.6-5.0 MMOL/L Chloride Level 108 H 98-107 MMOL/L Carbon Dioxide Level 22 21-32 MMOL/L Anion Gap 10 5-14 MMOL/L Blood Urea Nitrogen 4 L 7-18 MG/DL Creatinine 0.87 0.60-1.30 MG/DL Estimat Glomerular Filtration Rate > 60 BUN/Creatinine Ratio 5 Glucose Level 194 H 70-105 MG/DL Calcium Level 9.6 8.5-10.1 MG/DL Total Bilirubin 0.3 0.1-1.0 MG/DL Aspartate Amino Transf (AST/SGOT) 13 5-34 U/L Alanine Aminotransferase (ALT/SGPT) 19 0-55 U/L Alkaline Phosphatase 73 40-136 U/L Total Protein 6.6 6.4-8.2 GM/DL Albumin 4.0 3.2-4.5 GM/DL Urine Color YELLOW Urine Clarity CLEAR Urine pH 7 5-9 Urine Specific [place] 1.005 L 1.016-1.022 Urine Protein NEGATIVE NEGATIVE Urine Glucose (UA) NEGATIVE NEGATIVE Urine Ketones NEGATIVE NEGATIVE Urine Nitrite NEGATIVE NEGATIVE Urine Bilirubin NEGATIVE NEGATIVE Urine Urobilinogen NORMAL NORMAL MG/DL Urine Leukocyte Esterase NEGATIVE NEGATIVE Urine RBC (Auto) 1+ H NEGATIVE Urine RBC 0-2 /HPF Urine WBC 0-2 /HPF Urine Squamous Epithelial Cells 25-50 H /HPF Urine Renal Epithelial Cells NONE /HPF Urine Crystals NONE /LPF Urine Bacteria NEGATIVE /HPF Urine Casts NONE /LPF Urine Mucus NEGATIVE /LPF Urine Culture Indicated NO Glucometer 215 H 376 H 70-110 MG/DL Test 05/24/17 05:27 05/24/17 10:37 05/24/17 11:45 Range/Units White Blood Count 5.8 4.3-11.0 10^3/uL Red Blood Count 3.44 L 4.35-5.85 10^6/uL Hemoglobin 9.9 L 11.5-16.0 G/DL Hematocrit 29 L 35-52 % Mean Corpuscular Volume 85 80-99 FL Mean Corpuscular Hemoglobin 29 25-34 PG Mean Corpuscular Hemoglobin Concent 34 32-36 G/DL Red Cell Distribution Width 14.5 10.0-14.5 % Platelet Count 282 130-400 10^3/uL Mean Platelet Volume 10.1 7.4-10.4 FL Neutrophils (%) (Auto) 89 H 42-75 % Lymphocytes (%) (Auto) 9 L 12-44 % Monocytes (%) (Auto) 2 0-12 % Eosinophils (%) (Auto) 0 0-10 % Basophils (%) (Auto) 0 0-10 % Neutrophils # (Auto) 5.2 1.8-7.8 X 10^3 Lymphocytes # (Auto) 0.5 L 1.0-4.0 X 10^3 Monocytes # (Auto) 0.1 0.0-1.0 X 10^3 Eosinophils # (Auto) 0.0 0.0-0.3 10^3/uL Basophils # (Auto) 0.0 0.0-0.1 10^3/uL Neutrophils % (Manual) 91 % Lymphocytes % (Manual) 4 % Monocytes % (Manual) 2 % Eosinophils % (Manual) 0 % Basophils % (Manual) 0 % Band Neutrophils 1 % Reactive Lymphocytes 2 % Anisocytosis SLIGHT Sodium Level 138 135-145 MMOL/L Potassium Level 4.2 3.6-5.0 MMOL/L Chloride Level 108 H 98-107 MMOL/L Carbon Dioxide Level 20 L 21-32 MMOL/L Anion Gap 10 5-14 MMOL/L Blood Urea Nitrogen 7 7-18 MG/DL Creatinine 0.82 0.60-1.30 MG/DL Estimat Glomerular Filtration Rate > 60 BUN/Creatinine Ratio 9 Glucose Level 357 H 70-105 MG/DL Calcium Level 9.1 8.5-10.1 MG/DL Glucometer 397 H 70-110 MG/DL Radiology CXR 05/23/17- Left lung atalectasis, enlarged heart, no infiltrate Physical Exam-([facility]) Physical Exam Vital Signs VS - Last 72 Hours, by Label 05/23/17 05/23/17 05/23/17 05/23/17 16:30 16:52 18:48 19:45 Temp 98.7 Pulse 123 116 Resp 32 24 B/P (MAP) 151/100 (117) 123/91 Pulse Ox 98 98 O2 Delivery Nasal Cannula Nasal Cannula Nasal Cannula O2 Flow Rate 2.00 3.00 2.00 05/23/17 05/23/17 05/23/17 05/24/17 20:50 23:06 23:35 02:08 Temp 100.3 99.5 Pulse 115 118 Resp 22 20 B/P (MAP) 142/90 (107) 134/74 (94) Pulse Ox 99 96 95 96 O2 Delivery Nasal Cannula Nasal Cannula Nasal Cannula Nasal Cannula O2 Flow Rate 2.00 2.00 2.00 2.00 05/24/17 05/24/17 05/24/17 05/24/17 04:00 06:33 08:00 08:05 Temp 98.6 98.6 Pulse 101 96 Resp 20 22 B/P (MAP) 154/91 (112) 123/77 (92) Pulse Ox 93 96 95 O2 Delivery Nasal Cannula Nasal Cannula Nasal Cannula Nasal Cannula O2 Flow Rate 2.00 2.00 2.00 2.00 05/24/17 05/24/17 05/24/17 05/24/17 09:07 10:26 12:00 14:09 Temp 100.0 98.4 Pulse 104 Resp 20 B/P (MAP) 119/69 (86) Pulse Ox 94 96 95 O2 Delivery Nasal Cannula Nasal Cannula Nasal Cannula O2 Flow Rate 2.00 2.00 2.00 Capillary Refill : Less Than 3 Seconds General Appearance: WD/WN, moderate distress Respiratory: decreased breath sounds, wheezing Cardiovascular: regular rate, rhythm, no murmur Gastrointestinal: normal bowel sounds, non tender, soft Extremities: no pedal edema Neurologic/Psychiatric: alert, normal mood/affect Skin: normal color Assessment/Plan Assessment/Plan Admission Dx COPD exacerbation Gastroenteritis Admission Status: Observation (1) Gastroenteritis Status: Acute Assessment & Plan: Suspect viral, C diff testing ordered on admission and pending IVF given initially, she reports no BM overnight and more formed stool this am, no vomiting with breakfast, okay to d/c IVF (2) History of GI bleed Status: Chronic Assessment & Plan: Caution with DVT ppx and prednisone, monitor closely, avoid NSAIDs (3) COPD with exacerbation Status: Acute Assessment & Plan: Prednisone 60 mg BID started, will decrease to daily. RT protocol, duonebs q4, resume home LABA/steroid combo. (4) Hyperglycemia Status: Acute Assessment & Plan: Takes anti-diabetic medications at times when on prednisone. Diabetic diet, sliding scale insulin. (5) Anxiety Status: Chronic Assessment & Plan: Low dose lorazepam ordered, will not continue on d/c, patient with history of substance misuse and benzodiazepine overdose (6) DVT prophylaxis Status: Acute Assessment & Plan: SCDs, enoxaparin Clinical Quality Measures DVT/VTE Risk/Contraindication: Risk Factor Score Per Nursin RFS Level Per Nursing on Admit: 4+=Very High JAISON MARTINEZ MD May 24, 2017 2:30 pm
[2017-05-24] MEDS: ENOXAPARIN 40 MG/0.4 ML (LOVENOX) SYR SC SCH (15:06)
[2017-05-24 16:02] VITALS: BP 111/55
[2017-05-24] MEDS: MELATONIN 3 MG TABLET PO SCH (21:30)
[2017-05-24 23:45] VITALS: BP 113/59
[2017-05-25] MEDS: RT-ALBUTEROL/IPRATROPIUM 3 ML (DUONEB) VIAL IH SCH ×6 (02:13→22:05)
[2017-05-25] MEDS: LORazepam 0.5 MG (ATIVAN) TABLET PO PRN ×3 (05:51→23:20)
[2017-05-25] MEDS: SUCRALFATE 1 GM (CARAFATE) TAB PO SCH ×4 (05:51→20:23)
[2017-05-25] MEDS: inSUlin ASPART (NovoLOG) 1 UNIT/0.01 ML (CHARGE PER UNIT) SC SCH ×4 (05:52→20:24)
[2017-05-25] MEDS: CATHETER FLUSH 10 ML SYR IV SCH ×4 (06:00→20:23)
[2017-05-25 06:01] LABS: HEMOGLOBIN 9.2 G/DL (11.5-16.0); RED BLOOD COUNT 3.26 10^6/uL (4.35-5.85); RED CELL DISTRIBUTION WIDTH 14.6 % (10.0-14.5); WHITE BLOOD COUNT 7.8 10^3/uL (4.3-11.0)
[2017-05-25 06:29] LABS: BUN/CREATININE RATIO 17; CALCIUM 8.9 MG/DL (8.5-10.1); CARBON DIOXIDE 23 MMOL/L (21-32); CHLORIDE 109 MMOL/L (98-107); CREATININE SERUM 0.81 MG/DL (0.60-1.30); GFR ESTIMATED > 60; GLUCOSE 212 MG/DL (70-105); SODIUM 140 MMOL/L (135-145)
[2017-05-25] MEDS: ADVAIR HFA 115/21 MCG INHALER 8 GM IH SCH ×2 (07:39→19:02)
[2017-05-25 08:00] VITALS: BP 146/79
[2017-05-25] MEDS: toPIRamate 100 MG (TOPAMAX) TAB PO SCH ×2 (09:26→20:23)
[2017-05-25] MEDS: ARIPIPRAZOLE 15 MG (ABILIFY) TAB PO SCH (09:26)
[2017-05-25] MEDS: DULoxetine 30 MG (CYMBALTA) CAP PO SCH (09:26)
[2017-05-25] MEDS: NICOTINE 21 MG (NICODERM) PATCH TD SCH (09:27)
[2017-05-25] MEDS: predniSONE 20 MG TAB PO SCH (09:27)
[2017-05-25] MEDS: meTOprolol TARTRATE 25 MG (LOPRESSOR) TABLET PO SCH ×2 (09:27→20:23)
[2017-05-25] MEDS: PANTOPRAZOLE 40 MG (PROTONIX) TAB PO SCH ×2 (09:27→20:23)
[2017-05-25] MEDS: GABAPENTIN 300 MG (NEURONTIN) CAP PO SCH ×3 (09:27→20:23)
--- NOTE | 2017-05-25 13:48 | Progress Note (SOAP) ---
Subjective Subjective/Events-last exam The patient reports that she has not had any loose stools today. She reports that she does have quite a bit of shortness of breath when she gets up to the bathroom. She reports she feels her breathing is okay when she is resting in bed. VSS. No acute events overnight. Review of Systems Date Seen by Provider: May 25, 2017 Time Seen by Provider: 12:30 General: No Chills, No Night Sweats HEENT: No Head Aches, No Eye Pain Pulmonary: Dyspnea, Cough Cardiovascular: No: Chest Pain, Palpitations, Orthopnea Gastrointestinal: Abdominal Pain (mild tenderness), No: Nausea, Vomiting Genitourinary: No Dysuria, No Hematuria Neurological: No: Numbness, Incoordination, Change in speech, Confusion, Seizures Focused Exam Evaluation Possible Source: GI Tract/Intra-Abdominal Time of Focused Exam: 12:35 Respiratory: Chest Non Tender, No Accessory Muscle Use, Decreased Breath Sounds , Wheezing Cardiovascular: Regular Rate, Rhythm, No Gallop, No Murmur, Normal Peripheral Pulses Capillary Refill: Less Than 3 Seconds Peripheral Pulses: 2+ Radial Pulses (R), 2+ Radial Pulses (L) Skin: normal color, warm/dry Objective Exam Last Set of Vital Signs Vital Signs Date Time Temp Pulse Resp B/P (MAP) Pulse Ox O2 Delivery O2 Flow Rate FiO2 05/25/17 11:00 Nasal Cannula 2.00 05/25/17 08:00 99.1 95 20 146/79 (101) 97 Capillary Refill : Less Than 3 Seconds I&O Intake and Output 05/25/17 00:00 Intake Total 4360 ml Output Total 2800 ml Balance 1560 ml Intake Oral 3360 ml IV Total 1000 ml Output Urine Total 2800 ml # Bowel Movements 1 General: Alert, Oriented X3, Cooperative, Mild Distress HEENT: Atraumatic, EOMI, Mucous Memb Moist/[place] Neck: Supple, No Thyromegaly Lungs: Other (diminished breath sounds in bases) Heart: Regular Rate, Normal S1, Normal S2 Abdomen: Normal Bowel Sounds, Soft, Other (mild tenderness to palpation) Extremities: No Clubbing, No Cyanosis, Normal Pulses Skin: No Rashes, No Significant Lesion Neuro: Normal Speech, Normal Tone, Sensation Intact, Cranial Nerves 3-12 NL Psych/Mental Status: Mental Status NL, Mood NL Results/Procedures Lab Laboratory Tests 05/24/17 16:05: Glucometer 253H 05/24/17 20:45: Glucometer 378H 05/25/17 05:35: Glucometer 220H 05/25/17 05:36: White Blood Count 7.8, Red Blood Count 3.26L, Hemoglobin 9.2L, Hematocrit 29L, Mean Corpuscular Volume 87, Mean Corpuscular Hemoglobin 28, Mean Corpuscular Hemoglobin Concent 32, Red Cell Distribution Width 14.6H, Platelet Count 274, Mean Platelet Volume 10.0, Sodium Level 140, Potassium Level 4.0, Chloride Level 109H, Carbon Dioxide Level 23, Anion Gap 8, Blood Urea Nitrogen 14, Creatinine 0.81, Estimat Glomerular Filtration Rate > 60, BUN/Creatinine Ratio 17, Glucose Level 212H, Calcium Level 8.9 05/25/17 10:57: Glucometer 275H Microbiology 05/24/17 C. difficile DNA Amplification, Resulted Pending 05/24/17 C. difficile GDH Antigen & Toxins - Final, Resulted Radiology CXR 05/23/17- Left lung atalectasis, enlarged heart, no infiltrate Assessment/Plan Assessment/Plan Admission Dx shortness of breath, diarrhea Admission Status: Observation (1) Gastroenteritis Status: Acute Assessment & Plan: Suspect viral, C diff testing ordered on admission and pending IVF given initially, she reports no BM overnight and more formed stool this am, no vomiting with breakfast, okay to d/c IVF 05/25 c diff cultures returned and positive -start PO vancomycin 125 mg PO q6H x10 days (2) History of GI bleed Status: Chronic Assessment & Plan: Caution with DVT ppx and prednisone, monitor closely, avoid NSAIDs (3) COPD with exacerbation Status: Acute Assessment & Plan: Prednisone 60 mg BID started, will decrease to daily. RT protocol, duonebs q4, resume home LABA/steroid combo. (4) Hyperglycemia Status: Acute Assessment & Plan: Takes anti-diabetic medications at times when on prednisone. Diabetic diet, sliding scale insulin. (5) Anxiety Status: Chronic Assessment & Plan: Low dose lorazepam ordered, will not continue on d/c, patient with history of substance misuse and benzodiazepine overdose (6) DVT prophylaxis Status: Acute Assessment & Plan: SCDs, enoxaparin (7) Clostridium difficile colitis Status: Acute Assessment & Plan: 05/25 -final results + c diff -start PO vancomycin 125 mg PO every 6H x10 days -if continues to have no loose stools by tomorrow, may discharge to home on PO medication Clinical Quality Measures DVT/VTE Risk/Contraindication: Risk Factor Score Per Nursin RFS Level Per Nursing on Admit: 4+=Very High Copy Copies To 1: [facility]/PAZ ANDERSON DO May 25, 2017 13:48
[2017-05-25] MEDS: ENOXAPARIN 40 MG/0.4 ML (LOVENOX) SYR SC SCH (14:31)
[2017-05-25 15:44] VITALS: BP 111/59
[2017-05-25] MEDS ORDERED: VANCOMYCIN ORAL SUSPENSION 60 ML BOTTLE PO SCH (17:00)
[2017-05-25] MEDS: VANCOMYCIN ORAL 250 MG/5 ML 60 ML PO SCH ×4 (18:26→23:20)
[2017-05-25] MEDS: MELATONIN 3 MG TABLET PO SCH (20:23)
[2017-05-26] VITALS: BP 109/62
[2017-05-26 04:00] VITALS: BP 116/57
[2017-05-26] MEDS: CATHETER FLUSH 10 ML SYR IV SCH ×2 (05:02→16:09)
[2017-05-26] MEDS: RT-ALBUTEROL/IPRATROPIUM 3 ML (DUONEB) VIAL IH SCH ×4 (05:07→15:26)
[2017-05-26] MEDS: VANCOMYCIN ORAL 250 MG/5 ML 60 ML PO SCH ×4 (05:22→12:03)
[2017-05-26] MEDS: SUCRALFATE 1 GM (CARAFATE) TAB PO SCH ×2 (05:23→12:03)
[2017-05-26] MEDS: inSUlin ASPART (NovoLOG) 1 UNIT/0.01 ML (CHARGE PER UNIT) SC SCH ×2 (05:23→12:03)
[2017-05-26 06:45] LABS: BASOPHILS % (AUTO) 0 % (0-10); EOSINOPHILS % (AUTO) 1 % (0-10); HEMATOCRIT 30 % (35-52); HEMOGLOBIN 9.3 G/DL (11.5-16.0); LYMPHOCYTES # (AUTO) 2.4 X 10^3 (1.0-4.0); LYMPHOCYTES % (AUTO) 28 % (12-44); MEAN CORPUSCULAR HEMOGLOBIN 28 PG (25-34); MEAN CORPUSCULAR HGB CONC 31 G/DL (32-36); MEAN CORPUSCULAR VOLUME 91 FL (80-99); MEAN PLATELET VOLUME 10.4 FL (7.4-10.4); MONOCYTES # (AUTO) 0.6 X 10^3 (0.0-1.0); MONOCYTES % (AUTO) 7 % (0-12); NEUTROPHILS # (AUTO) 5.4 X 10^3 (1.8-7.8); NEUTROPHILS % (AUTO) 64 % (42-75); PLATELET COUNT 278 10^3/uL (130-400); RED BLOOD COUNT 3.32 10^6/uL (4.35-5.85); RED CELL DISTRIBUTION WIDTH 14.8 % (10.0-14.5); WHITE BLOOD COUNT 8.4 10^3/uL (4.3-11.0)
[2017-05-26] MEDS: ADVAIR HFA 115/21 MCG INHALER 8 GM IH SCH (06:49)
[2017-05-26 07:20] LABS: BUN/CREATININE RATIO 23; CALCIUM 9.1 MG/DL (8.5-10.1); CARBON DIOXIDE 24 MMOL/L (21-32); CHLORIDE 104 MMOL/L (98-107); CREATININE SERUM 0.82 MG/DL (0.60-1.30); GFR ESTIMATED > 60; GLUCOSE 210 MG/DL (70-105); MAGNESIUM 1.8 MG/DL (1.8-2.4); POTASSIUM 3.8 MMOL/L (3.6-5.0); SODIUM 138 MMOL/L (135-145)
[2017-05-26 08:00] VITALS: BP 139/70
[2017-05-26] MEDS ORDERED: UMECLIDINIUM BROMIDE (INCRUSE ELLIPTA) 7'S IH SCH (08:00)
--- NOTE | 2017-05-26 08:10 | Pulmonary Consultation ---
History of Present Illness History of Present Illness Date of Consultation 05/26/17 08:06 Time Seen by Provider: 13:21 Date of Admission History of Present Illness 52yo with hx of multiple hospitalizations and 52 yo female presented to ER after about a week of diarrhea and vomiting with temperature up to 100 a couple of days ago. Starting about 2-3 days ago she also began to have worsening shortness of breath and cough. She reports regularly using her inhalers and has not been out of any medications. She was recently discharged from the hospital last month after a GI bleed, candidal esophagitis and completed a steroid taper for COPD exacerbation more than a week ago and states her breathing was okay after ending prednisone, just restarted with shortness of breath recently. Allergies and Home Medications Allergies Coded Allergies: buspirone (Verified Allergy, Mild, 05/02/17) Made"legs Shaky" amitriptyline (Verified Allergy, Unknown, 05/02/17) " MAKES ME DO WEIRD THINGS LIKE WALK IN MY SLEEP AND HAVE HALLUCINATIONS." Home Medications Albuterol Sulfate 1 Puff Puff, 2 PUFF IH Q4H PRN for SHORTNESS OF BREATH, ( Reported) 1 PUFF = 90 MCG Aripiprazole 15 Mg Tablet, 15 MG PO DAILY, (Reported) Dulaglutide 0.75 Mg/0.5 Ml Pen.injctr, 0.75 MG SQ Th, (Reported) Duloxetine HCl 60 Mg Capsule.dr, 120 MG PO DAILY, (Reported) TAKES 2 (60MG) CAPSULES Fluticasone/Salmeterol 1 Each Blst.w.dev, 1 PUFF IH BID, (Reported) Gabapentin 300 Mg Capsule, 300 MG PO TID, (Reported) Glimepiride 1 Mg Tablet, 1 MG PO DAILY PRN for WHEN TAKING PREDNISONE, (Reported ) Ipratropium/Albuterol Sulfate 3 Ml Ampul.neb, 3 ML IH QID PRN for SHORTNESS OF BREATH, (Reported) Melatonin 5 Mg Capsule, 5 MG PO HS, (Reported) Metoprolol Tartrate 25 Mg Tablet, 12.5 MG PO BID, (Reported) TAKES 1/2 (25MG) TABLET Multivitamin 1 Each Tablet, 1 TAB PO DAILY, (Reported) Pantoprazole Sodium 40 Mg Tablet.dr, 40 MG PO BID, (Reported) Psyllium Husk (with Sugar) 3.4 Gm Powd.pack, 3.4 GM PO DAILY, (Reported) Sucralfate 1 Gm Tablet, 1 GM PO ACHS, (Reported) Tiotropium [place] 1 Inh Aerp, 1 CAP IH DAILY, (Reported) Topiramate 100 Mg Tablet, 100 MG PO BID, (Reported) LAST FILLED #60 02-06-17 Zolpidem Tartrate 6.25 Mg Tab.mphase, 6.25 MG PO HS PRN for SLEEP, (Reported) LAST FILLED #15 03-17-17 Past Hctsxpb-Xobmen-Msjudl Hx Patient Social History Alcohol Use: Denies Use Recreational Drug Use: No (4 YRS AGO) Drug of Choice: +IV METH past hx Smoking Status: Current Everyday Smoker Type Used: Cigarettes 2nd Hand Smoke Exposure: Yes Recent Foreign Travel: No Contact w/Someone Who Travel: No Recent Infectious Disease Expo: No Recent Hopitalizations: Yes Immunizations Up To Date Tetanus Booster (TDap): Unknown Date of Pneumonia Vaccine: Dec 08, 2011 Date of Influenza Vaccine: Dec 31, 2016 Seasonal Allergies Seasonal Allergies: No Surgeries History of Surgeries: No Respiratory History of Respiratory Disorde: Yes (O2 AT 2-3L/NC) Respiratory Disorders: Asthma, Sleep Apnea, COPD, Emphysema Currently Using CPAP: No Currently Using BIPAP: Yes (PT. STATED) Cardiovascular History of Cardiac Disorders: Yes (HAD HEART CATH. WITH NO INTERVENTIONS) Cardiac Disorders: Hypertension Neurological History of Neurological Disord: Yes Neurological Disorders: Headaches /Migraines 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 System Hx 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 Disorders: No Sexually Transmitted Disease: No HIV/AIDS: No 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 Disorders: Denies ANIMAL BEHAVIOURIST History: Menopausal Genitourinary History of Genitourinary Disor: No Gastrointestinal History of Gastrointestinal Di: Yes Gastrointestinal Disorders: Chronic Constipation, Chronic Diarrhea Musculoskeletal History of Musculoskeletal Dis: Yes (chronic shoulder and neck pain) Endocrine History of Endocrine Disorders: Yes (DM- only while on steriods per pt) Endocrine Disorders: Diabetes, Non-Insulin dep Are Your Blood Sugars Over 250: Yes (while on steroids.) HEENT History of HEENT Disorders: No Cancer History of Cancer: No Psychosocial History of Psychiatric Problem: Yes Behavioral Health Disorders: Sleep Difficulties, Anxiety, Suicide Attempts, Bipolar, Depression Integumentary History of Skin or Integumenta: No Blood Transfusions History of Blood Disorders: No Adverse Reaction to a Blood Tr: No Family Medical History Significant Family History: Heart Disease, Cancer (lung) Family Medial History: Cancer 03 MOTHER, Onset:66 (LUNG ) 09 BROTHER (LUNG ) Congestive heart failure 03 FATHER Exam Exam Vital Signs Date Time Temp Pulse Resp B/P (MAP) Pulse Ox O2 Delivery O2 Flow Rate FiO2 05/26/17 06:49 96 Nasal Cannula 2.00 05/26/17 04:00 97.2 78 20 116/57 (76) 98 Nasal Cannula 2.00 05/26/17 00:00 97.8 88 16 109/62 (78) 96 Nasal Cannula 2.00 05/25/17 22:05 95 Nasal Cannula 2.00 05/25/17 21:00 Nasal Cannula 2.00 05/25/17 19:02 95 Nasal Cannula 2.00 05/25/17 19:02 Nasal Cannula 2.00 05/25/17 15:44 99.6 97 20 111/59 (76) 95 Nasal Cannula 2.00 05/25/17 14:09 97 Nasal Cannula 2.00 05/25/17 11:00 Nasal Cannula 2.00 05/25/17 09:35 Nasal Cannula 2.00 I & O 05/26/17 07:00 Intake Total 3550 ml Output Total 6000 ml Balance -2450 ml Respiratory: Chest Non Tender, No Accessory Muscle Use, Decreased Breath Sounds , Wheezing Cardiovascular: Regular Rate, Rhythm, No Gallop, No Murmur, Normal Peripheral Pulses Capillary Refill: Less Than 3 Seconds Peripheral Pulses: 2+ Radial Pulses (R), 2+ Radial Pulses (L) Gastrointestinal: normal bowel sounds, non tender, soft Results Lab Laboratory Tests 05/24/17 10:37 05/25/17 05:36 05/26/17 06:05 Assessment/Plan Assessment/Plan COPDAE -SVNS -prednisone taper Anxiety Cdiff colitis 254 WILLIAMS THOMAS DO May 26, 2017 08:10
[2017-05-26] MEDS: ARIPIPRAZOLE 15 MG (ABILIFY) TAB PO SCH (09:11)
[2017-05-26] MEDS: PANTOPRAZOLE 40 MG (PROTONIX) TAB PO SCH (09:11)
[2017-05-26] MEDS: predniSONE 20 MG TAB PO SCH (09:11)
[2017-05-26] MEDS: DULoxetine 30 MG (CYMBALTA) CAP PO SCH (09:11)
[2017-05-26] MEDS: GABAPENTIN 300 MG (NEURONTIN) CAP PO SCH ×2 (09:11→12:03)
[2017-05-26] MEDS: meTOprolol TARTRATE 25 MG (LOPRESSOR) TABLET PO SCH (09:12)
[2017-05-26] MEDS: NICOTINE 21 MG (NICODERM) PATCH TD SCH (09:12)
[2017-05-26] MEDS: toPIRamate 100 MG (TOPAMAX) TAB PO SCH (09:12)
[2017-05-26] MEDS: LORazepam 0.5 MG (ATIVAN) TABLET PO PRN (09:19)
--- NOTE | 2017-05-26 13:54 | Discharge Summary ---
Diagnosis/Chief Complaint Date of Admission May 23, 2017 at 17:43 Date of Discharge Chief Complaint/HPI Chief Complaint/HPI 52 yo female presented to ER after about a week of diarrhea and vomiting with temperature up to 100 a couple of days ago. Starting about 2-3 days ago she also began to have worsening shortness of breath and cough. She reports regularly using her inhalers and has not been out of any medications. She was recently discharged from the hospital last month after a GI bleed, candidal esophagitis and completed a steroid taper for COPD exacerbation more than a week ago and states her breathing was okay after ending prednisone, just restarted with shortness of breath recently. Discharge Summary-OBS Procedures None. Consultations Discharge Physical Examination Allergies: Coded Allergies: buspirone (Verified Allergy, Mild, 05/02/17) Made"legs Shaky" amitriptyline (Verified Allergy, Unknown, 05/02/17) " MAKES ME DO WEIRD THINGS LIKE WALK IN MY SLEEP AND HAVE HALLUCINATIONS." Vitals & I&Os Intake and Output 05/26/17 00:00 Intake Total 2950 ml Output Total 4600 ml Balance -1650 ml Vital Sign - Last 12Hours Date Time Temp Pulse Resp B/P (MAP) Pulse Ox O2 Delivery O2 Flow Rate FiO2 05/26/17 11:22 94 Nasal Cannula 2.00 05/26/17 08:00 99.1 92 20 139/70 (93) Hospital Course Labs Laboratory Tests 05/25/17 15:44: Glucometer 235H 05/25/17 20:05: Glucometer 373H 05/26/17 05:14: Glucometer 253H 05/26/17 06:05: White Blood Count 8.4, Red Blood Count 3.32L, Hemoglobin 9.3L, Hematocrit 30L, Mean Corpuscular Volume 91, Mean Corpuscular Hemoglobin 28, Mean Corpuscular Hemoglobin Concent 31L, Red Cell Distribution Width 14.8H, Platelet Count 278, Mean Platelet Volume 10.4, Neutrophils (%) (Auto) 64, Lymphocytes (%) (Auto) 28 , Monocytes (%) (Auto) 7, Eosinophils (%) (Auto) 1, Basophils (%) (Auto) 0, Neutrophils # (Auto) 5.4, Lymphocytes # (Auto) 2.4, Monocytes # (Auto) 0.6, Eosinophils # (Auto) 0.0, Basophils # (Auto) 0.0, Sodium Level 138, Potassium Level 3.8, Chloride Level 104, Carbon Dioxide Level 24, Anion Gap 10, Blood Urea Nitrogen 19H, Creatinine 0.82, Estimat Glomerular Filtration Rate > 60, BUN /Creatinine Ratio 23, Glucose Level 210H, Calcium Level 9.1, Magnesium Level 1.8 05/26/17 11:28: Glucometer 289H Microbiology 05/24/17 C. difficile DNA Amplification - Final, Complete Radiology Reviewed CXR 05/23/17- Left lung atalectasis, enlarged heart, no infiltrate Discharge Instructions to patient/family Please see electronic discharge instructions given to patient. Discharge Medications Reviewed and agree with Discharge Medication list on patient's Discharge Instruction sheet Clinical Quality Measures DVT/VTE Risk/Contraindication: Risk Factor Score Per Nursin RFS Level Per Nursing on Admit: 4+=Very High Copy Copies To 1: [facility]/PAZ ANDERSON DO May 26, 2017 13:54
[2017-05-26] MEDS ORDERED: PRD20T PO (14:02)
[2017-05-26] MEDS ORDERED: VANC125C4 PO (14:02)
[2017-05-26] MEDS ORDERED: VANC10VI PO (14:46)
--- NOTE | 2017-05-26 14:55 | Discharge Instructions ---
Discharge [facility] Discharge Medications New, Converted or Re-Newed RX: Transmitted to Pharmacy (patient to be discharged with remaining vancomycin oral syrup after relabeled by pharmacy) New Medications: Vancomycin HCl (Vancomycin HCl) 125 Mg Capsule 125 MG PO Q6H for 4 Days, #16 CAP 0 Refills Vancomycin HCl (Vancomycin HCl) 10 Gm Vial 2.5 ML PO Q6H for 6 Days, #1 EA Prednisone (Prednisone) 20 Mg Tab 60 MG PO DAILY for 9 Days, #18 TAB 3 tablets daily x3 days 2 tablets daily x3 days 1 tablet daily x3 days Continued Medications: Albuterol Sulfate (Ventolin Hfa) 1 Puff Puff 2 PUFF IH Q4H PRN for SHORTNESS OF BREATH, PUFF 1 PUFF = 90 MCG Aripiprazole (Aripiprazole) 15 Mg Tablet 15 MG PO DAILY, TAB Dulaglutide (Trulicity) 0.75 Mg/0.5 Ml Pen.injctr 0.75 MG SQ Th, VIAL Duloxetine HCl (Cymbalta) 60 Mg Capsule.dr 120 MG PO DAILY, CAP TAKES 2 (60MG) CAPSULES Fluticasone/Salmeterol (Advair 250-50 Diskus) 1 Each Blst.w.dev 1 PUFF IH BID, INHALER Gabapentin (Gabapentin) 300 Mg Capsule 300 MG PO TID, CAP Glimepiride (Glimepiride) 1 Mg Tablet 1 MG PO DAILY PRN for WHEN TAKING PREDNISONE, TAB Ipratropium/Albuterol Sulfate (Iprat-Albut 0.5-3(2.5) mg/3 ml) 3 Ml Ampul.neb 3 ML IH QID PRN for SHORTNESS OF BREATH, EA Melatonin (Melatonin) 5 Mg Capsule 5 MG PO HS, CAP Metoprolol Tartrate (Metoprolol Tartrate) 25 Mg Tablet 12.5 MG PO BID, TAB TAKES 1/2 (25MG) TABLET Multivitamin (Multivitamins) 1 Each Tablet 1 TAB PO DAILY, TAB Pantoprazole Sodium (Pantoprazole Sodium) 40 Mg Tablet.dr 40 MG PO BID, TAB Psyllium Husk (with Sugar) (Metamucil Packet) 3.4 Gm Powd.pack 3.4 GM PO DAILY, EACH Sucralfate (Sucralfate) 1 Gm Tablet 1 GM PO ACHS, TAB Tiotropium [place] (Spiriva) 1 Inh Aerp 1 CAP IH DAILY, INHALER Topiramate (Topiramate) 100 Mg Tablet 100 MG PO BID, TAB LAST FILLED #60 02-06-17 Zolpidem Tartrate (Zolpidem Tartrate ER) 6.25 Mg Tab.mphase 6.25 MG PO HS PRN for SLEEP, TAB LAST FILLED #15 03-17-17 Patient Instructions Patient Instructions -take medications as prescribed -finish vancomycin liquid from hospital before taking capsules from [facility] -wash hands with soap and warm water after using restroom and before eating, and have visitors do the same to prevent spread of c diff to others -keep follow up appointments as scheduled Goal/Follow Up Appt: 05/29/17 at 10:20 with Rose Pantoja APRN (normal provider is out of the office) Return to The Hospital For: chest pain or pressure, shortness of breath out of normal for patient, nausea or vomiting that make you unable to keep down ice chips or clear liquids for more than 12 hours, temp >101 that is not relieved by tylenol or ibuprofen, if directed by contact lens edge buffer provider, or any emergent complaints or concerns Activity & Diet Discharge Diet: Low Sodium Diet, ADA Diet Activity as Tolerated: Yes Copy Copies To 1: [facility]PAZ ANDERSON DO May 26, 2017 14:55
[2017-05-26 16:00] VITALS: BP 135/73
[2017-05-26] MEDS: ENOXAPARIN 40 MG/0.4 ML (LOVENOX) SYR SC SCH (16:11)
== END 2017-05-26 14:03 | disposition home or self-care (01) ==
LOC: EDUNIT# 15:50 → ER 15:52 → 4TH 17:43 → UNDOADMOB 17:43 → 4TH 19:00 → UNDODISOB 05-26 16:15
PROVIDERS: ADMIT Family Medicine; ATTEND Family Medicine
DX: A04.72 Enterocolitis due to Clostridium difficile, not specified as recurrent (principal); J44.1 Chronic obstructive pulmonary disease with (acute) exacerbation; F41.9 Anxiety disorder, unspecified; R73.9 Hyperglycemia, unspecified; F17.210 Nicotine dependence, cigarettes, uncomplicated; G43.909 Migraine, unspecified, not intractable, without status migrainosus; F32.9 Major depressive disorder, single episode, unspecified; E78.5 Hyperlipidemia, unspecified; E78.1 Pure hyperglyceridemia; G47.00 Insomnia, unspecified
CPT/HCPCS: 36415; 71045; 80048; 80053; 81000; 82962; 83735; 85007; 85025; 85027; 87324; 87449; 87493; 94640; 94760; G0378

== ENCOUNTER 2017-06-13 14:46 | Inpatient (IN) | payer OTHER ==
[~2017-06-13] VITALS: Ht 172.7 cm; Wt 111.6 kg
[~2017-06-13 14:46] MED LIST changes: +PSYL1PAC10 PO; +VANC10VI PO; +VANC125C4 PO
[2017-06-13] MEDS ORDERED: RT-ALBUTEROL/IPRATROPIUM 3 ML (DUONEB) VIAL ONE ×2 (14:57→17:59)
[2017-06-13] MEDS ORDERED: RT-ALBUTEROL SULF 2.5 MG/3 ML PRE-MIX VIAL ONE (15:08)
[2017-06-13] MEDS ORDERED: RT-ALBUTEROL SULF 2.5 MG/3 ML PRE-MIX VIAL INH STA (15:09)
[2017-06-13] MEDS ORDERED: methylPREDNISolone 125 MG (Solu-MEDROL) VIAL IVP ONE (15:15)
[2017-06-13] MEDS ORDERED: RT-IPRATROPIUM (ATROVENT) 0.5MG/2.5ML AMP IH ONE (15:15)
[2017-06-13 15:16] LABS: BASOPHILS % (AUTO) 0 % (0-10); EOSINOPHILS # (AUTO) 0.1 10^3/uL (0.0-0.3); EOSINOPHILS % (AUTO) 1 % (0-10); HEMATOCRIT 37 % (35-52); HEMOGLOBIN 11.8 G/DL (11.5-16.0); LYMPHOCYTES # (AUTO) 2.2 X 10^3 (1.0-4.0); LYMPHOCYTES % (AUTO) 20 % (12-44); MEAN CORPUSCULAR HEMOGLOBIN 27 PG (25-34); MEAN CORPUSCULAR HGB CONC 32 G/DL (32-36); MEAN CORPUSCULAR VOLUME 84 FL (80-99); MEAN PLATELET VOLUME 9.9 FL (7.4-10.4); MONOCYTES # (AUTO) 0.9 X 10^3 (0.0-1.0); MONOCYTES % (AUTO) 9 % (0-12); NEUTROPHILS # (AUTO) 7.7 X 10^3 (1.8-7.8); NEUTROPHILS % (AUTO) 70 % (42-75); PLATELET COUNT 325 10^3/uL (130-400); RED BLOOD COUNT 4.37 10^6/uL (4.35-5.85); RED CELL DISTRIBUTION WIDTH 14.5 % (10.0-14.5)
[2017-06-13 15:30] LABS: ALANINE AMINOTRANSFERASE 22 U/L (0-55); ALBUMIN 3.9 GM/DL (3.2-4.5); ALKALINE PHOSPHATASE 86 U/L (40-136); BILIRUBIN,TOTAL 0.4 MG/DL (0.1-1.0); BUN/CREATININE RATIO 5; CALCIUM 9.2 MG/DL (8.5-10.1); CARBON DIOXIDE 23 MMOL/L (21-32); CHLORIDE 105 MMOL/L (98-107); CREATININE SERUM 0.79 MG/DL (0.60-1.30); GFR ESTIMATED > 60; GLUCOSE 169 MG/DL (70-105); POTASSIUM 3.2 MMOL/L (3.6-5.0); SODIUM 141 MMOL/L (135-145); TOTAL PROTEIN 6.5 GM/DL (6.4-8.2)
--- NOTE | 2017-06-13 15:52 | Diagnostic Imaging Report ---
Portable erect AP chest at 3:16 p.m. INDICATION: Shortness of breath. FINDINGS: The cardiomegaly and the scar formation in the left lung base seen on the prior exam of 05/23/2017 are again evident and no different. In the interval since the prior study, however, mild blunting of the left costophrenic angle has developed. This does suggest that there may be a small amount of pleural fluid in this area. The lungs are otherwise generally clear. The mediastinum is not widened. The osseous structures are intact. IMPRESSION: There appears to be a small amount of fluid now present in the left lung base. The overall appearance of the chest has not changed significantly otherwise. Clinical followup is recommended. Dictated by: Dictated on workstation # [id number]
--- NOTE | 2017-06-13 16:14 | ED Respiratory ---
General Chief Complaint: Respiratory Problems Stated Complaint: SOB Source: patient, old records Exam Limitations: no limitations History of Present Illness Date Seen by Provider: Jun 13, 2017 Time Seen by Provider: 15:05 Initial Comments Patient presents with shortness of breath since Thursday. She has a long history of COPD and continues to smoke. No fevers or change in cough. She has been using nebulizer treatments at home. Allergies and Home Medications Allergies Coded Allergies: buspirone (Verified Allergy, Mild, 05/02/17) Made"legs Shaky" amitriptyline (Verified Allergy, Unknown, 05/02/17) " MAKES ME DO WEIRD THINGS LIKE WALK IN MY SLEEP AND HAVE HALLUCINATIONS." Home Medications Albuterol Sulfate 1 Puff Puff, 2 PUFF IH Q4H PRN for SHORTNESS OF BREATH, ( Reported) 1 PUFF = 90 MCG Aripiprazole 15 Mg Tablet, 15 MG PO DAILY, (Reported) Dulaglutide 0.75 Mg/0.5 Ml Pen.injctr, 0.75 MG SQ Th, (Reported) Duloxetine HCl 60 Mg Capsule.dr, 120 MG PO DAILY, (Reported) TAKES 2 (60MG) CAPSULES Fluticasone/Salmeterol 1 Each Blst.w.dev, 1 PUFF IH BID, (Reported) Gabapentin 300 Mg Capsule, 300 MG PO TID, (Reported) Glimepiride 1 Mg Tablet, 1 MG PO DAILY PRN for WHEN TAKING PREDNISONE, (Reported ) Ipratropium/Albuterol Sulfate 3 Ml Ampul.neb, 3 ML IH QID PRN for SHORTNESS OF BREATH, (Reported) Melatonin 5 Mg Capsule, 5 MG PO HS, (Reported) Metoprolol Tartrate 25 Mg Tablet, 12.5 MG PO BID, (Reported) TAKES 1/2 (25MG) TABLET Multivitamin 1 Each Tablet, 1 TAB PO DAILY, (Reported) Pantoprazole Sodium 40 Mg Tablet.dr, 40 MG PO BID, (Reported) Psyllium Husk (with Sugar) 3.4 Gm Powd.pack, 3.4 GM PO DAILY, (Reported) Sucralfate 1 Gm Tablet, 1 GM PO ACHS, (Reported) Tiotropium [place] 1 Inh Aerp, 1 CAP IH DAILY, (Reported) Topiramate 100 Mg Tablet, 100 MG PO BID, (Reported) LAST FILLED #60 02-06-17 Zolpidem Tartrate 6.25 Mg Tab.mphase, 6.25 MG PO HS PRN for SLEEP, (Reported) LAST FILLED #15 03-17-17 Patient Home Medication List Home Medication List Reviewed: Yes Review of Systems Constitutional: no symptoms reported EENTM: no symptoms reported Respiratory: see HPI Cardiovascular: no symptoms reported Gastrointestinal: no symptoms reported Genitourinary: no symptoms reported : No Musculoskeletal: no symptoms reported Skin: no symptoms reported Psychiatric/Neurological: Anxiety Hematologic/Lymphatic: No Symptoms Reported Past Asrpuvr-Jrwdzy-Wrwnzl Hx Patient Social History Drug of Choice: +IV METH past hx Type Used: Cigarettes 2nd Hand Smoke Exposure: Yes Recent Foreign Travel: No Contact w/Someone Who Travel: No Recent Hopitalizations: Yes Immunizations Up To Date Tetanus Booster (TDap): Unknown Date of Pneumonia Vaccine: Dec 08, 2011 Date of Influenza Vaccine: Dec 31, 2016 Seasonal Allergies Seasonal Allergies: No Past Medical History Surgeries: No Respiratory: Yes (O2 AT 2-3L/NC) Asthma, Sleep Apnea, COPD, Emphysema Currently Using CPAP: No Currently Using BIPAP: Yes (PT. STATED) Cardiac: Yes (HAD HEART CATH. 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 Sexually Transmitted Disease: No HIV/AIDS: No Genitourinary: No Gastrointestinal: Yes Chronic Constipation, Chronic Diarrhea Musculoskeletal: Yes (chronic shoulder and neck pain) Endocrine: Yes (DM- only while on steriods per pt) Diabetes, Non-Insulin dep HEENT: No Cancer: No Psychosocial: Yes Sleep Difficulties, Anxiety, Suicide Attempts, Bipolar, Depression Integumentary: No Blood Disorders: No Adverse Reaction/Blood Tranf: No Family Medical History Cancer 03 MOTHER, Onset:66 (LUNG ) 09 BROTHER (LUNG ) Congestive heart failure 03 FATHER Heart Disease, Cancer Physical Exam Vital Signs Vital Signs - First Documented 06/13/17 15:04 Pulse Ox 98 O2 Delivery Nasal Cannula O2 Flow Rate 2.00 Capillary Refill : General Appearance: WD/WN, moderate distress (respiratory) HEENT: normal ENT inspection Neck: normal inspection Respiratory: respiratory distress, accessory muscle use, wheezing Cardiovascular: no edema, no murmur, tachycardia Gastrointestinal: non tender, soft Extremities: normal inspection, no pedal edema Neurologic/Psychiatric: management tech II-XII nml as tested, no motor/sensory deficits, alert, oriented x 3, other (anxious) Skin: normal color, warm/dry Progress/Results/Core Measures Suspected Sepsis SIRS Temperature: Pulse: Respiratory Rate: Laboratory Tests 06/13/17 15:07: White Blood Count 11.0 Blood Pressure / Mean: Laboratory Tests 06/13/17 15:07: Creatinine 0.79, Platelet Count 325, Total Bilirubin 0.4 Results/Orders Lab Results Laboratory Tests Test 06/13/17 15:07 Range/Units White Blood Count 11.0 4.3-11.0 10^3/uL Red Blood Count 4.37 4.35-5.85 10^6/uL Hemoglobin 11.8 11.5-16.0 G/DL Hematocrit 37 35-52 % Mean Corpuscular Volume 84 80-99 FL Mean Corpuscular Hemoglobin 27 25-34 PG Mean Corpuscular Hemoglobin Concent 32 32-36 G/DL Red Cell Distribution Width 14.5 10.0-14.5 % Platelet Count 325 130-400 10^3/uL Mean Platelet Volume 9.9 7.4-10.4 FL Neutrophils (%) (Auto) 70 42-75 % Lymphocytes (%) (Auto) 20 12-44 % Monocytes (%) (Auto) 9 0-12 % Eosinophils (%) (Auto) 1 0-10 % Basophils (%) (Auto) 0 0-10 % Neutrophils # (Auto) 7.7 1.8-7.8 X 10^3 Lymphocytes # (Auto) 2.2 1.0-4.0 X 10^3 Monocytes # (Auto) 0.9 0.0-1.0 X 10^3 Eosinophils # (Auto) 0.1 0.0-0.3 10^3/uL Basophils # (Auto) 0.0 0.0-0.1 10^3/uL Sodium Level 141 135-145 MMOL/L Potassium Level 3.2 L 3.6-5.0 MMOL/L Chloride Level 105 98-107 MMOL/L Carbon Dioxide Level 23 21-32 MMOL/L Anion Gap 13 5-14 MMOL/L Blood Urea Nitrogen 4 L 7-18 MG/DL Creatinine 0.79 0.60-1.30 MG/DL Estimat Glomerular Filtration Rate > 60 BUN/Creatinine Ratio 5 Glucose Level 169 H 70-105 MG/DL Calcium Level 9.2 8.5-10.1 MG/DL Total Bilirubin 0.4 0.1-1.0 MG/DL Aspartate Amino Transf (AST/SGOT) 14 5-34 U/L Alanine Aminotransferase (ALT/SGPT) 22 0-55 U/L Alkaline Phosphatase 86 40-136 U/L Total Protein 6.5 6.4-8.2 GM/DL Albumin 3.9 3.2-4.5 GM/DL My Orders Orders - TYLOR DURAN MD Albuterol/Ipra Inhalation Soln (Duoneb I (06/13/17 14:57) Chest 1 View, Ap/Pa Only (06/13/17 15:09) Cbc With Automated Diff (06/13/17 15:09) Comprehensive Metabolic Panel (06/13/17 15:09) Saline Lock/Iv-Start (06/13/17 15:09) Monitor-Rhythm Ecg Trace Only (06/13/17 15:09) Albuterol Pre-Mix Nebs (Rt) (Proventil (06/13/17 15:09) Ipratropium 0.02% Neb Solution (Atrovent (06/13/17 15:15) Svn Sm Volume Nebulizer Rt-Rfs (06/13/17 15:09) Svn Sm Volume Nebulizer Rt-Rfs (06/13/17 15:09) Methylprednisolone Sod Succ (Solu-Medrol (06/13/17 15:15) Albuterol Pre-Mix Nebs (Rt) (Proventil (06/13/17 15:08) Medications Given in ED Current Medications Medications Dose Ordered Sig/Vladimir Route Start Time Stop Time Status Last Admin Dose Admin Albuterol/ Ipratropium 3 ml STK-MED ONCE .ROUTE 06/13/17 14:57 06/13/17 15:01 DC 06/13/17 15:02 3 ML Ipratropium [place] 0.5 mg ONCE ONCE IH 06/13/17 15:15 06/13/17 15:16 DC 06/13/17 15:21 0.5 MG Methylprednisolone Sodium Succinate 125 mg ONCE ONCE IVP 06/13/17 15:15 06/13/17 15:16 DC 06/13/17 15:28 125 MG Vital Signs/I&O 06/13/17 06/13/17 15:04 15:23 Pulse Ox 98 O2 Delivery Nasal Cannula Nasal Cannula O2 Flow Rate 2.00 2.00 Capillary Refill : Progress Note : Time: 16:05 Progress Note Patient has had no significant improvement in her respiratory distress since starting her hour-long treatment. BiPAP has been ordered. Patient does use BiPAP at home. Case was reviewed with Dr. Zepeda who agrees with admission. Patient received Solu-Medrol 125 mg. Departure Communication (Admissions) Time/Spoke to Admitting Phy: 16:04 Dr. Zepeda Impression Primary Impression: Respiratory distress Additional Impressions: COPD exacerbation Hypokalemia Disposition: ADMITTED INPATIENT Condition: Improved Admissions Decision to Admit Reason: Admit from ER (General) Decision to Admit/Date: Jun 13, 2017 Time/Decision to Admit Time: 15:10 Departure-Patient Inst. Referrals: [facility] (PCP) Primary Care Physician ALIZA CARTER (Family) Primary Care Physician TYLOR DURAN MD Jun 13, 2017 16:14
--- OUTSIDE RECORDS SUMMARY | 2017-06-13 16:58 | XMS REPORT ---
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 Active Problem Thrush B37.0 Active 08848817 Problem TMJ (sprain of temporomandibular joint) S03.4XXA Active 03659791 Problem Anxiety F41.9 Active 31354147 Problem Tobacco abuse Z72.0 Active 97515070 Problem Non morbid obesity due to excess calories E66.09 Active 986102460 Problem Migraine G43.909 Active 22369567 Problem History of MRSA infection Z86.14 Active 075168013 Problem Knee pain, left M25.562 Active 70546447 Problem Obesity, unspecified obesity severity, unspecified obesity type E66.9 Active 579502806 Problem Migraine without aura and without status migrainosus, not intractable G43.009 Active 639095812 Problem Other emphysema J43.8 Active 50696544 Problem Intractable cyclical vomiting with nausea G43.A1 Active 41645937 Problem Viral illness B34.9 Active 43455875 Problem Dry mouth R68.2 Active 31288514 Problem Encounter for tobacco use cessation counseling Z71.6 Active 809245944 Problem Acute bronchitis with COPD J44.0 Active [id number] Problem Methamphetamine use disorder, moderate, 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 Active 42481062 Problem Chronic bronchitis, unspecified chronic bronchitis type J42 Active 65786309 Problem COPD exacerbation J44.1 Active 708055198 Problem Diabetes E11.9 Active 039394735 Problem Memory loss R41.3 Active 37977028 Problem Left knee pain M25.562 Active 18192821 Problem Chronic constipation K59.09 Active 264568113 Problem Yeast vaginitis B37.3 Active 33371497 Problem Generalized anxiety disorder F41.1 Active 73331541 Problem Bipolar disorder with depression F31.30 Active 85694681 Problem Bipolar disorder, unspecified F31.9 Active 82046099 Problem Bipolar disorder, current episode depressed, severe, without psychotic features F31.4 Active 24925763 ALLERGIES No Information ENCOUNTERS Encounter Location Date Diagnosis [facility] [address] [address] Jun, [facility] [address] [address]- [address] May, [facility] [address] 47261- 5988 May, [facility] [address] 41294- [address]185 May, [facility] [id number] [place] [address] 99684 -6657 17 May, 2017 [facility] [address] 85993- 6008 16 May, 2017 [facility] [id number] [place] [address] 35560- 2432 15 May, 2017 [facility] [address] 78752- 4618 14 May, 2017 Diarrhea, unspecified type R19.7 and Intractable cyclical vomiting with nausea G43.A1 [facility] [address] 92062- 9481 12 May, 2017 [facility] [id number] [place] [address] 88197- 2930 05 May, 2017 [facility] [id number] [place] [address] 40325- 1400 Apr, COPD exacerbation J44.1 ; Esophageal candidiasis B37.81 ; Other acute gastritis with hemorrhage K29.01 and Acute posthemorrhagic anemia D62 [facility] [address] 52966- 0658 Apr, Viral illness B34.9 and COPD exacerbation J44.1 [facility] [address] 7[address]33 -5146 Apr, Shortness of breath R06.02 and Pneumonia of both lower lobes due to infectious organism J18.9 [facility] [address] [address] Mar, COPD with acute exacerbation J44.1 [place] [address] 41895- 8906 Mar, Chronic obstructive pulmonary disease with acute exacerbation J44.1 and Diabetes E11.9 [place] [address] 60779- 3340 Mar, [facility] [address] 91342- 4613 Mar, [facility] [address] 31908 [address]7880 Mar, COPD exacerbation J44.1 [place] [address] 28647- 0164 Mar, [place] [address] 14353- 9135 Mar, Migraine G43.909 ; Hypokalemia E87.6 and Type 2 diabetes mellitus without complications E11.9 [place] [address] 07218- 0911 Feb, [place] [address] 51501- 9485 Feb, [place] [address] 87342- 0493 Feb, Methamphetamine use disorder, moderate, 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 ; Major depressive disorder, recurrent, moderate F33.1 ; Anxiety disorder, unspecified F41.9 and Tobacco abuse Z72.0 [facility] [id number] [place] [address] 98747- 0236 Jan, Major depressive disorder, recurrent, moderate F33.1 [place] [address] 09620- 0442 Jan, [facility] [address] 33005- 0559 Jan, [place] [address] 11808- 5156 Jan, Major depressive disorder, recurrent, moderate F33.1 [place] [address] 90736- 6499 Jan, Major depressive disorder, recurrent, moderate F33.1 ; Anxiety disorder, unspecified F41.9 ; Methamphetamine use disorder, moderate, 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 and Tobacco abuse Z72.0 [place] [address] 19870- 0372 Jan, [place] [address] 01179- 7024 Jan, Chronic obstructive pulmonary disease with acute exacerbation J44.1 and Diabetes E11.9 [place] [id number] [place] [address] 95268- 9078 Jan, [facility] [id number] [place] [address] 04546- 0759 Jan, [address] 32687- 7352 Dec, Acute respiratory failure with hypoxia J96.01 and Chronic bronchitis, unspecified chronic bronchitis type J42 [facility] [address] [place] [address] 83954- 1108 Dec, [place] [address] [address] Nov, Dental caries K02.9 and Dental examination Z01.20 [facility] [id number] [place] [address] 14227- 2695 Nov, Major depressive disorder, recurrent, moderate F33.1 ; Anxiety disorder, unspecified F41.9 and 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 [facility] [id number] [place] [address] [id number] Oct, Dental examination Z01.20 [facility] [id number] [place] [address] 63596- 1292 Oct, [facility] [id number] [place] [address] 89799- 4438 Oct, Diabetes E11.9 and Thrush B37.0 [facility] [id number] [place] [address] 10483- 1316 Oct, [facility] [id number] [place] [address] 65891- 7254 Oct, [facility] [id number] [place] [address] 68713- 2215 Oct, [facility] [id number] [place] [address] 94344- 2766 Sep, Major depressive disorder, recurrent, moderate F33.1 ; Anxiety disorder, unspecified F41.9 and Bipolar disorder, unspecified F31.9 [facility] [address] [place] [address] 94234- 3058 Sep, Acute exacerbation of chronic obstructive pulmonary disease (COPD) J44.1 and Migraine G43.909 [facility] [id number] [place] [address] 88833- 9795 Sep, [facility] [id number] [place] [address] [id number] Sep, [facility] [address] [address] 2191 Sep, Acute exacerbation of chronic obstructive pulmonary disease (COPD) J44.1 [facility] [address] [place] [address] 73255 -0757 Sep, Acute exacerbation of chronic obstructive pulmonary disease (COPD) J44.1 [facility] [id number] [place] [address] 44745- 7840 Aug, [facility] [id number] [place] [address] 06648- 4655 20 Aug, 2016 Major depressive disorder, recurrent, moderate F33.1 ; Anxiety disorder, unspecified F41.9 and 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 [facility] [address] [place] [address] 28251- 0804 19 Aug, 2016 Wheezing R06.2 ; Non morbid obesity due to excess calories E66.09 ; Migraine without aura and without status migrainosus, not intractable G43.009 and Tobacco abuse Z72.0 [facility] [address] [place] [address] [id number] 14 Aug, 2016 Encounter for dental examination Z01.20 [facility] [address] [place] [address] 58449- 4587 02 Aug, 2016 Major depressive disorder, recurrent, moderate F33.1 ; Anxiety disorder, unspecified F41.9 and 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 [facility] [address], [place] [address]- 6747 July, [facility] [id number] [place] [address] 49971- 3412 July, [facility] [id number] [place] [address] 11934- 2002 July, [facility] [id number] [place] [address] 19805- 2761 July, Diabetes E11.9 [facility] [id number] [place] [address] 29885- 5059 Jun, Major depressive disorder, recurrent, moderate F33.1 [facility] [id number] [place] [address] 45173- 3386 Jun, Major depressive disorder, recurrent, moderate F33.1 ; 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 ; Generalized anxiety disorder F41.1 and Bipolar disorder, unspecified F31.9 [facility] [address] 52477- 3266 Jun, Diabetes E11.9 ; Migraine G43.909 ; Thrush B37.0 and Wheezing R06.2 [facility] [address] [id number] Jun, Dental examination Z01.20 [place] [address] 72425- 3575 Jun, [facility] [address] 21429- 7321 Jun, Major depressive disorder, recurrent, moderate F33.1 ; Anxiety disorder, unspecified F41.9 and 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 [facility] [address] 74735- 3291 Jun, [facility] [address] 38524- 6506 Jun, Wheezing R06.2 [facility] [address] [id number] Jun, Dental caries K02.9 [facility] [address] 53583- 7272 Jun, Major depressive disorder, recurrent, moderate F33.1 ; Anxiety disorder, unspecified F41.9 and 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 [facility] [address] 02534- 4600 Jun, RLQ abdominal pain R10.31 ; Diabetes E11.9 ; Obesity, unspecified obesity severity, unspecified obesity type E66.9 ; Wheezing R06.2 and Abnormal urinalysis R82.90 [facility] [id number] [place] [address] 72957- 2721 May, [facility] [id number] [place] [address] 38391- 9035 May, Well woman exam Z01.419 ; Breast cancer screening Z12.39 ; Cervical cancer screening Z12.4 ; Urinary frequency R35.0 ; Edema, unspecified type R60.9 and Chronic constipation K59.09 [facility] [id number] [place] [address] 93566- 7378 May, Major depressive disorder, recurrent, moderate F33.1 ; Anxiety disorder, unspecified F41.9 and 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 [facility] [id number] [place] [address] [id number] May, Dental examination Z01.20 [facility] [id number] [place] [address] 51924- 6798 May, [facility] [id number] [place] [address] 25712- 9692 May, [facility] [id number] [place] [address] 97068- 6031 May, Chronic constipation K59.09 [facility] [address] [place] [address] 74826- 1843 Apr, [facility] [id number] [place] [address] 06924- 2232 Apr, Major depressive disorder, recurrent, moderate F33.1 ; Anxiety disorder, unspecified F41.9 and 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 [facility] [id number] [place] [address] 33301- 5676 Apr, [place] [address] [place] [address] 57392- 9552 Mar, Major depressive disorder, recurrent, moderate F33.1 [place] [id number] [place] [address] 00057- 0912 Mar, Major depressive disorder, recurrent, moderate F33.1 ; Generalized anxiety disorder F41.1 and Bipolar I disorder, most recent episode depressed with anxious distress F31.30 [place] [id number] [place] [address] 26660- 6400 Mar, Diabetes E11.9 ; Non morbid obesity due to excess calories E66.09 ; Breast cancer screening Z12.39 and Encounter for immunization Z23 [place] [address] [place] [address] 30778- 9430 Mar, Major depressive disorder, recurrent, moderate F33.1 ; Anxiety disorder, unspecified F41.9 and 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 [place] [address] [place] [address] 98343- 5702 Mar, [place] [id number] [place] [address] 45096- 5898 Feb, Major depressive disorder, recurrent, moderate F33.1 ; Anxiety disorder, unspecified F41.9 and 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 [place] [address] [place] [address] 54446- 3604 Feb, [place] [address] [place] [address] 07385- 6080 Feb, [place] [id number] [place] [address] 13434- 6743 Jan, Major depressive disorder, recurrent, moderate F33.1 ; Generalized anxiety disorder F41.1 and Bipolar disorder, current episode depressed, severe, without psychotic features F31.4 [facility] [id number] [place] [address] 03793- 7952 Jan, Major depressive disorder, recurrent, moderate F33.1 ; Anxiety disorder, unspecified F41.9 and 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 [facility] [address] [address]- 5935 Jan, Bronchitis J40 [facility] [address] [place] [address] 81500- 6952 Jan, [facility] [id number] [place] [address] 88820- 6610 Jan, [place] [id number] [place] [address] 34391- 2008 Jan, Elbow injury, right, initial encounter S59.901A ; Multiple contusions T14.8 and Cervical strain, acute, initial encounter S16.1XXA [place] [address] [place] [address] 12257- 0289 Dec, Major depressive disorder, recurrent, moderate F33.1 ; Generalized anxiety disorder F41.1 and Bipolar disorder with depression F31.30 [place] [address] [place] [address] 66173- 9239 Dec, [facility] [address] [place] [address] 55923- 5464 Dec, [facility] [address], [place] [address]- 5389 Dec, [facility] [address] [place] [address] 51946- 5781 Dec, [facility] [address] [place] [address] 96687- 6269 Dec, Yeast infection B37.9 [facility] [address] [address]- 2253 Dec, Pneumonia of both lungs due to methicillin resistant Staphylococcus aureus (MRSA), unspecified part of lung J15.212 and Benzodiazepine overdose, accidental or unintentional, subsequent encounter T42.4X1D [facility] [id number] [place] [address] 64465- 5078 Dec, [facility] [id number] [place] [address]- [address]056 Dec, [facility] [address] 48599189- 2337 Dec, Knee pain, left M25.562 and Edema, unspecified type R60.9 [facility] [id number] [place] [address] 86569- 4801 Dec, [facility] [id number] [place] [address] 42381- 7373 Dec, Anxiety disorder, unspecified F41.9 and Bipolar disorder, unspecified F31.9 [place] [address] 11416- 9251 Nov, Major depressive disorder, recurrent, moderate F33.1 ; Anxiety disorder, unspecified F41.9 and 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 [facility] [id number] [place] [address] 79672- 6301 Nov, [facility] [id number] [place] [address] 69761- 1981 Nov, Migraine without aura and without status migrainosus, not intractable G43.009 [facility] [id number] [place] [address] 33543- 9021 Nov, Migraine G43.909 [facility] [id number] [place] [address] 12690- 3910 Nov, [facility] [address] 120422- 6525 Nov, Major depressive disorder, recurrent, moderate F33.1 ; Anxiety disorder, unspecified F41.9 and 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 [place] [address] [place] [address] 51904- 4450 Oct, Chronic constipation K59.09 and Obesity, unspecified obesity severity, unspecified obesity type E66.9 [facility] [id number] [place] [address] 27777- 7913 Oct, Obesity, unspecified obesity severity, unspecified obesity type E66.9 ; Chronic constipation K59.09 and Anxiety disorder, unspecified F41.9 [facility] [id number] [place] [address] 75049- 0535 Oct, [place] [id number] [place] [address] 05641- 2731 Sep, Diabetes E11.9 ; Edema, unspecified type R60.9 ; Varicose vein of leg I83.90 and Obesity, unspecified obesity severity, unspecified obesity type E66.9 [place] [id number] [place] [address] 05208- 9478 Sep, Edema, unspecified type R60.9 ; Diabetes E11.9 and Knee pain , left M25.562 [facility] [id number] [place] [address] 32046- 7679 Sep, [facility] [id number] [place] [address] 31578- 0129 Sep, [place] [id number] [place] [address] 81021- 2183 Sep, Major depressive disorder, recurrent, moderate F33.1 ; Generalized anxiety disorder F41.1 and Bipolar disorder, unspecified F31.9 [facility] [id number] [place] [address] 98842- 4648 Aug, Chondromalacia of left knee M94.262 [facility] [id number] [place] [address] 64652- 9031 Aug, Major depressive disorder, recurrent, moderate F33.1 ; Anxiety disorder, unspecified F41.9 and 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 [facility] [id number] [address]- 3198 15 Aug, 2015 [facility] [id number] [place] [address] [id number]- 8719 06 Aug, 2015 Osteoarthritis of left knee M17.9 [facility] [address] [place] [address] 64724- 4266 Aug, [facility] [address] [place] [address] 58591- 0182 July, Major depressive disorder, recurrent, moderate F33.1 ; Anxiety disorder, unspecified F41.9 and 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 [facility] [address], [place] [address]- 4990 July, [facility] [id number] [place] [address] 20387- 4891 July, Chronic constipation K59.09 [facility] [address] [place] [address] 59891- 0723 Jun, [facility] [address] [place] [address] 87355- 8723 15 Jun, 2015 [facility] [address], [place] [address]- 1031 14 Jun, 2015 Osteoarthritis of left knee M17.9 [facility] [address], [place] [address]- 7644 Jun, [facility] [id number] [address]- 5452 13 Jun, 2015 Generalized anxiety disorder F41.1 ; Bipolar disorder, unspecified F31.9 and Major depressive disorder, recurrent, moderate F33.1 [facility] [address] [address]- 2449 07 Jun, 2015 Migraine G43.909 [facility] [id number] [place] [address] 82620- 2145 Jun, Left knee pain M25.562 ; Chronic constipation K59.09 ; Dry mouth R68.2 ; Yeast vaginitis B37.3 and Memory loss R41.3 [place] [id number] [place] [address] 20465- 5716 Jun, [place] [address] 54670- 7034 May, [facility] [id number] [place] [address] 83445- 7788 May, [place] [address] 70910- 5999 May, [facility] [place] [id number] [place] [address] 97842- 2643 May, [place] [address] 22551- 9793 May, Acute bronchitis with COPD J44.0 ; Knee pain, left M25.562 and Encounter for tobacco use cessation counseling Z71.6 [facility] [id number] [place] [address] 59893- 9614 May, [facility] [id number] [place] [address] 33483- 3494 Apr, Diabetes E11.9 ; TMJ (sprain of temporomandibular joint) S03.4XXA ; Tobacco abuse Z72.0 ; Migraine G43.909 and Anxiety F41.9 [place] [address] [id number] [place] [address] 95155- 5956 Apr, Generalized anxiety disorder F41.1 and Bipolar disorder, unspecified F31.9 [facility] [place] [id number] [place] [address] 85154- 7543 Apr, Major depressive disorder, recurrent, moderate F33.1 ; Anxiety disorder, unspecified F41.9 and 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 [facility] [address], [place] [address] 7314 Apr, [facility] [id number] [place] [address] 41332- 0856 Mar, [facility] [id number] [place] [address] 12405- 4128 Feb, [facility] [id number] [place] [address] 37461- 3253 Feb, Major depressive disorder, recurrent, moderate F33.1 ; Anxiety disorder, unspecified F41.9 and 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 [facility] [id number] [place] [address] 60156- 9646 Feb, [facility] [id number] [place] [address] 88848- 2124 Feb, Generalized anxiety disorder F41.1 and Bipolar disorder, unspecified F31.9 [facility] [id number] [place] [address] 68660- 0541 30 Jan, 2015 [facility] [id number] [place] [address] 31164- 0676 18 Jan, 2015 [facility] [id number] [place] [address] 84202- 3702 Jan, Bipolar disorder, unspecified F31.9 and Generalized anxiety disorder F41.1 [facility] [address], [place] [address]- 0613 Dec, [facility] [id number] [place] [address] 45705- 7451 14 Dec, 2014 Bipolar disorder, unspecified F31.9 and Generalized anxiety disorder F41.1 [facility] [address], [place] [address]- 0397 13 Dec, 2014 Generalized anxiety disorder F41.1 and Major depressive disorder, recurrent, moderate F33.1 [facility] [address], [place] [address] 2126 Oct, Headache 784.0 ; Cough 786.2 ; Vomiting and diarrhea 787.03 and Dysuria 788.1 [facility] [id number], [place] [address]- 5048 Aug, [facility] [id number] [place] [address] 29828- 2402 Aug, Headache 784.0 and Shortness of breath 786.05 [facility] [id number] [place] [address] 40880- 4272 Aug, [facility] [id number] [place] [address] 59966- 7241 Aug, Migraine 346.90 [facility] [id number] [place] [address] 10269- 5869 Jun, [facility] [id number] [place] [address] 51956- 8551 Jun, [facility] [id number] [place] [address] 02279- 9759 May, [facility] [id number] [place] [address] 70198- 2118 May, [facility] [address], [place] [address]- 5086 May, [facility] [id number] [place] [address] 44756- 3173 May, [facility] [address], [place] [address]- 2523 May, [facility] [id number] [place] [address] 411240- 9628 May, [facility] [address] 6027 Apr, [facility] [id number] [address]- 0451 11 Apr, 2014 [facility] [place] [facility] [address] [id number] [place] [address]- 7273 Apr, 2014 [facility] [place] [facility] [address] [id number] [place] [address]- 9356 Apr, 2014 [facility] [place] [facility] [address] [id number] [place] [address]- 0626 Apr, 2014 [facility] [place] [facility] [address] [id number] [place] [address]- 4691 Mar, [facility] [place] [facility] [address] [id number] [place] [address]- 0242 Mar, [facility] [place] [facility] [address] [id number] [place] [address]- 8891 Mar, [facility] [place] [facility] [address] [id number] [place] [address]- 9035 Mar, [facility] [place] [facility] [address] [id number] [place] [address]- 3205 Feb, [facility] [place] [facility] [address] [id number] [place] [address]- 6370 Feb, [facility] [place] [facility] [address] [id number] [place] [address]- 8083 18 Feb, 2014 [facility] [place] [facility] [address] [id number] [place] [address]- 6249 18 Feb, 2014 [facility] [place] [facility] [address] [id number] [place] [address]- 2076 16 Feb, 2014 [facility] [place] [facility] [address] [id number] [place] 5521 16 Feb, 2014 [facility] [place] [facility] [address] [id number] [place] 5674 Feb, [facility] [place] [facility] [address] [id number] [place] [address]- 9351 Feb, [facility] [place] [facility] [address] [id number] [place] [address]- 0465 Feb, [facility] [place] [facility] [address] [id number] [place] [address]- 1468 Feb, [facility] [place] [facility] [address] [id number] [place] 8251 Feb, [facility] [place] [facility] [address] [id number] [place] [address]- 1245 Feb, [facility] [place] [facility] [address] [id number] [place] [address]- 4821 Jan, [facility] [place] [facility] [address] [id number] [place] [address]- 0502 Jan, [facility] [place] [facility] [address] [id number] [place] [address]- 1144 Dec, [facility] [place] [facility] [address] [id number] [place] [address]- 3507 Dec, [facility] [place] [facility] [address] [id number] [place] [address]- 3003 Dec, [facility] [place] [facility] [address] [id number] [place] [address]- 1927 Dec, [facility] [place] [facility] [address] [id number] [place] [address]- 6608 Dec, [facility] [place] [facility] [address] [id number], [place] [address]- 9385 Dec, [facility] [place] [facility] [address] [id number] [place] [address]- 6084 Sep, [facility] [place] [facility] [address] [id number] [place] [address]- 5185 Sep, [facility] [place] [facility] [address] [id number] [place] [address]- 6628 Sep, [facility] [place] [facility] [address] [id number] [place] [address]- 1403 Sep, 2013 [facility] [place] [facility] [address] [id number] [place] [address]- 0637 14 Sep, 2013 [facility] [place] [facility] [address] [id number] [place] [address]- 9682 14 Sep, 2013 [facility] [place] [facility] [address] [id number] [place] [address]- 6737 Sep, 2013 [facility] [place] [facility] [address] [id number] [place] [address]- 9818 Sep, 2013 [facility] [place] [facility] [address] [id number] [place] [address]- 0564 Sep, 2013 [facility] [place] [facility] [address] [id number] [place] [address]- 2407 Sep, 2013 [facility] [place] [facility] [address] [id number] [place] [address]- 8376 24 Aug, 2013 [facility] [place] [facility] [address] [id number] [place] [address]- 8158 Aug, [facility] [place] [facility] [address] [id number] [place] [address]- 1404 Aug, [facility] [place] [facility] [address] [id number] [place] [address]- 8712 17 Aug, 2013 [facility] [place] [facility] [address] [id number] [place] [address]- 2288 17 Aug, 2013 [facility] [place] [facility] [address] [id number] [place] [address]- 5301 14 Aug, 2013 [facility] [place] [facility] [address] [id number] [place] [address]- 2595 14 Aug, 2013 [facility] [place] [facility] [address] [id number] [place] [address]- 9260 Aug, [facility] [place] [facility] [address] [id number] [place] [address]- 7683 Aug, [facility] [place] [facility] [address] [id number] [place] [address]- 1624 Aug, [facility] [place] [facility] [address] [id number] [place] [address]- 2002 Aug, [facility] [place] [facility] [address] [id number] [place] [address]- 2401 Aug, [facility] [place] [facility] [address] [id number] [place] [address]- 7878 Aug, [facility] [place] [facility] [address] [id number] [place] [address]- 0189 July, [facility] [place] [facility] [address] [id number] [place] [address]- 2524 July, [facility] [place] [facility] [address] [id number] [place] [address]- 2090 July, [facility] [place] [facility] [address] [id number] [place] [address]- 9425 July, [facility] [place] [facility] [address] [id number] [place] [address]- 6837 July, [facility] [place] [facility] [address] [id number] [place] [address]- 3563 July, [facility] [place] [facility] [address] [id number] [place] [address]- 7152 July, [facility] [place] [facility] [address] [id number] [place] [address]- 3809 Jun, [facility] [place] [facility] [address] [id number] [place] [address]- 7444 Jun, [facility] [place] [facility] [address] [id number] [place] [address]- 3433 Jun, [facility] [place] [facility] [address] [id number] [place] [address]- 7918 16 Jun, 2013 [facility] [place] [facility] [address] [id number] [place] [address]- 5074 16 Jun, 2013 [facility] [place] [facility] [address] [id number] [place] 0065 08 Jun, 2013 [facility] [place] [facility] [address] [id number] [place] [address]- 7969 08 Jun, 2013 [facility] [place] [facility] [address] [id number] [place] [address]- 8555 17 May, 2013 [facility] [place] [facility] [address] [id number] [place] [address]- 3676 17 May, 2013 [facility] [place] [facility] [address] [id number] [place] [address]- 6110 14 May, 2013 [facility] [place] [facility] [address] [id number] [place] [address]- 6854 14 May, 2013 [facility] [place] [facility] [address] [id number] [place] [address]- 0834 13 May, 2013 [facility] [place] [facility] [address] [id number] [place] [address]- 7758 13 May, 2013 [facility] [place] [facility] [address] [id number] [place] [address]- 5627 10 May, 2013 [facility] [place] [facility] [address] [id number] [place] [address]- 2957 10 May, 2013 [facility] [place] [facility] [address] [id number] [place] [address]- 9083 07 May, 2013 [facility] [place] [facility] [address] [id number] [place] [address]- 8474 26 Apr, 2013 [facility] [place] [facility] [address] [id number] [place] [address]- 4597 26 Apr, 2013 [facility] [place] [facility] [address] [id number] [place] [address]- 1956 18 Apr, 2013 [facility] [place] [facility] [address] [id number] [place] [address]- 9651 15 Apr, 2013 [facility] [place] [facility] [address] [id number] [place] [address]- 9371 15 Apr, 2013 [facility] [place] [facility] [address] [id number] [place] [address]- 5394 Apr, [facility] [place] [facility] [address] [id number] [place] [address]- 3421 Apr, [facility] [place] [facility] [address] [id number] [place] [address]- 9384 Apr, [facility] [place] [facility] [address] [id number] [place] [address]- 3478 Apr, [facility] [place] [facility] [address] [id number] [place] [address]- 2063 Apr, [facility] [place] [facility] [address] [id number] [place] [address]- 1048 Mar, [facility] [place] [facility] [address] [id number] [place] [address]- 8496 Mar, [facility] [place] [facility] [address] [id number] [place] [address]- 4569 Mar, [facility] [place] [facility] [address] [id number] [place] [address]- 1042 Mar, [facility] [place] [facility] [address] [id number] [place] [address]- 2892 Mar, [facility] [place] [facility] [address] [id number] [place] [address]- 3131 Mar, [facility] [place] [facility] [address] [id number] [place] [address]- 8018 Mar, [facility] [place] [facility] [address] [id number] [place] [address]- 1037 Mar, [facility] [place] [facility] [address] [id number] [place] [address]- 9512 Feb, [facility] [place] [facility] [address] [id number], [place] [address]- 4584 Feb, [facility] [place] [facility] [address] [id number] [place] [address]- 4371 Jan, [facility] [place] [facility] [address] [id number] [place] [address]- 6924 Jan, [facility] [place] [facility] [address] [id number] [place] [address]- 0594 Jan, [facility] [place] [facility] [address] [id number], [place] [address]- 1505 Jan, [facility] [place] [facility] [address] [id number] [place] [address]- 7600 Jan, [facility] [place] [facility] [address] [id number] [place] [address]- 7828 Jan, [facility] [place] [facility] [address] [id number] [place] [address]- 1034 Jan, [facility] [place] [facility] [address] [id number] [place] [address]- 3335 Jan, [facility] [place] [facility] [address] [id number] [place] [address]- 5200 Dec, [facility] [place] [facility] [address] [id number] [place] [address]- 8338 Dec, [facility] [place] [facility] [address] [id number], [place] [address]- 1258 Dec, [facility] [place] [facility] [address] [id number], [place] [address]- 9743 20 Nov, 2012 [facility] [place] [facility] [address] [id number] [place] [address]- 7455 13 Nov, 2012 [facility] [place] [facility] [address] [id number] [place] [address]- 0738 12 Nov, 2012 [facility] [place] [facility] [address] [id number] [place] [address]- 1874 09 Nov, 2012 [facility] [place] [facility] [address] [id number] [place] [address]- 4255 Nov, [facility] [address] [id number] [place] [address]- 7945 Nov, [facility] [place] [facility] [address] [id number] [place] [address]- 8902 Oct, [facility] [address] [id number] [place] [address]- 6968 Oct, [facility] [place] [facility] [address] [id number] [place] [address]- 8413 Sep, [facility] [address] [id number] [place] [address]- 5871 Sep, [facility] [address] [id number] [place] [address]- 4154 Sep, [facility] [address] [id number] [place] [address]- 5720 Sep, [facility] [address] [id number] [place] [address]- 2321 Sep, [facility] [place] [facility] [address] [id number] [place] [address]- 0053 Sep, [facility] [address] [id number] [place] [address]- 4531 Sep, [facility] [place] [facility] [address] [id number] [place] [address]- 5256 Aug, [facility] [place] [facility] [address] [id number] [place] [address]- 0273 Aug, [facility] [place] [facility] [address] [id number] [place] [address]- 9790 Aug, [facility] [place] [facility] [address] [id number] [place] [address]- 4380 Aug, [facility] [place] [facility] [address] [id number] [place] [address]- 8343 Aug, [facility] [address] [id number] [place] [address]- 2539 Aug, [facility] [address] [id number] [place] [address]- 6230 July, [facility] [address] [id number] [place] [address]- 2083 July, [facility] [place] [facility] [address] [id number] [place] [address]- 9983 July, [facility] [address] [id number] [place] [address]- 5210 July, [facility] [address] [id number] [place] [address]- 2501 July, [facility] [address] [id number] [place] [address]- 9857 July, [facility] [address] [id number] [place] [address]- 0271 Jun, [facility] [place] [facility] [address] [id number] [place] [address]- 0450 Jun, [facility] [address] [id number] [place] [address]- 7631 Jun, [facility] [place] [facility] [address] [id number] [place] [address]- 2757 Jun, [facility] [place] [facility] [address] [id number], [place] [address]- 6731 Jun, [facility] [place] [facility] [address] [id number] [place] [address]- 1583 Jun, [facility] [place] [facility] [address] [id number] [place] [address]- 8889 Jun, [facility] [place] [facility] [address] [id number] [place] [address]- 0816 May, [facility] [place] [facility] [address] [id number], [place] [address]- 1312 May, [facility] [address] [id number] [place] [address]- 2536 Apr, 2012 [facility] [place] [facility] [address] [id number] [place] [address] 2546 Apr, 2012 [facility] [place] [facility] [address] [facility] [id number] [place] [address] 2546 Apr, 2012 [facility] [place] [facility] [address] [id number] [place] [address] 2546 Apr, 2012 [facility] [address] [id number] [place] [address]- 3166 Apr, [facility] [place] [facility] [address] [facility] [id number] [place] [address] 2546 08 Apr, 2012 [facility] [place] [facility] [id number] [address]- 8516 07 Apr, 2012 [facility] [place] [facility] [address] [facility] [id number] [place] [address]- 8536 07 Apr, 2012 [facility] [place] [facility] [address] [id number] [address]- 9508 06 Apr, 2012 [facility] [place] [facility] [address] [id number] [place] [address]- 5661 Apr, [facility] [place] [facility] [address] [facility] [id number] [place] [address] 2543 Apr, [facility] [place] [facility] [address] [facility] [id number] [place] [address] 254 Mar, [facility] [place] [facility] [address] [facility] [id number] [place] [address] 2546 Mar, [facility] [place] [facility] [address] [facility] [id number] [place] [address] 2546 Mar, [facility] [place] [facility] [address] [facility] [id number] [place] [address]- 4826 Mar, [facility] [address] [id number] [place] [address] Mar, [facility] [address] [id number] [place] [address] Mar, [facility] [address] [id number] [place] [address] 15 Mar, 2012 [facility] [place] [facility] [address] [id number] [place] [address] 15 Mar, 2012 [facility] [address] [id number] [place] [address] Mar, [facility] [address] [id number] [place] [address] Mar, [facility] [address] [id number] [place] [address] Mar, [facility] [address] [id number] [place] [address] Mar, [facility] [address] [id number] [place] [address] Mar, [facility] [address] [id number] [place] [address] 94[address] Feb, [facility] [place] [facility] [address] [id number], [place] [address] Feb, [facility] [place] [facility] [address] [id number], [place] [address] Feb, [facility] [place] [facility] [address] [id number] [place] [address]- [address] Feb, [facility] [place] [facility] [address] [id number] [place] [address]- [address] Feb, [facility] [place] [facility] [address] [id number] [place] [address] 3499 Feb, [facility] [place] [facility] [address] [id number] [place] [address]- 1663 Feb, [facility] [place] [facility] [address] [id number] [place] [address]- 2736 Feb, [facility] [place] [facility] [address] [id number] [place] [address]- 4656 Feb, [facility] [place] [facility] [address] [id number] [place] [address]- [address]266 Feb, [facility] [place] [facility] [address] [id number] [place] [address] Feb, [facility] [place] [facility] [address] [id number] [place] [address]- 9531 Feb, [facility] [place] [facility] [address] [id number] [place] [address]- [address] Feb, [facility] [place] [facility] [address] [id number] [place] [address]- 2949 Feb, [facility] [place] [facility] [address] [id number] [place] [address]- 45[address] Feb, [facility] [place] [facility] [address] [id number] [place] [address]- 14[address] Jan, [facility] [place] [facility] [address] [facility] [id number] [place] [address]- 2540 Jan, [facility] [place] [facility] [address] [id number] [place] [address]- 2984 Jan, [facility] [place] [facility] [address] [id number] [place] [address]- 3706 Jan, [facility] [place] [facility] [address] [id number] [place] [address]- 6[address] Dec, [facility] [place] [facility] [address] [id number] [place] [address]- [address] Dec, [facility] [place] [facility] [address] [id number], [place] [address] Dec, [facility] [place] [facility] [address] [id number] [place] [address]- 8028 Dec, [facility] [place] [facility] [address] [id number] [place] [address]- 7925 Dec, [facility] [place] [facility] [address] [id number] [place] [address] 1934 Dec, [facility] [place] [facility] [address] [id number] [place] [address]- [address] Dec, [facility] [place] [facility] [address] [id number] [place] [address]- 120[address] 16 Dec, 2011 [facility] [place] [facility] [address] [id number] [place] [address]- 9682 Dec, [facility] [place] [facility] [address] [id number] [place] [address]- 79[address] 04 Dec, 2011 [facility] [place] [facility] [address] [id number] [place] [address]- 6068 03 Dec, 2011 [facility] [place] [facility] [address] [id number] [place] [address]- [address]326 25 Sep2011 [facility] [place] [facility] [address] [id number] [place] [address]- 59[address] 24 Sep2011 [facility] [place] [facility] [address] [id number] [place] [address]- 8648 20 Sep, 2011 [facility] [place] [facility] [address] [id number] [place] [address]- 9712 19 Sep, 2011 [facility] [place] [facility] [address] [id number] [place] [address]- 6897 17 Sep, 2011 [facility] [place] [facility] [address] [id number] [place] [address]- 1665 16 Sep, 2011 [facility] [place] [facility] [address] [id number] [place] [address]- [address] 14 Sep, 2011 [facility] [place] [facility] [address] [id number] [place] [address]- [address]237 13 Nov, 2011 [facility] [place] [facility] [address] [id number] [place] [address]- [address] 12 Nov, 2011 [facility] [place] [facility] [address] [id number] [place] [address]- [address]26 07 Nov, 2011 [facility] [place] [facility] [address] [id number] [place] [address]- 6[address] 06 Nov, 2011 [facility] [place] [facility] [address] [id number] [place] [address]- [address]72 06 Nov, 2011 [facility] [place] [facility] [address] [id number] [place] [address]- 8872 05 Nov, 2011 [facility] [place] [facility] [address] [id number] [place] [address]- 0648 29 Oct, 2011 [facility] [place] [facility] [address] [id number] [place] [address]- 8059 Oct, [facility] [place] [facility] [address] [id number] [place] [address]- [address]666 Oct, [facility] [place] [facility] [address] [id number] [place] [address]- 4328 Oct, [facility] [place] [facility] [address] [id number] [place] [address]- 1363 Oct, [facility] [place] [facility] [address] [id number] [place] [address]- 5659 Oct, [facility] [place] [facility] [address] [id number] [place] [address]- 2688 Oct, [facility] [place] [facility] [address] [id number] [place] [address]- 6372 16 Oct, 2011 [facility] [facility] [address] [id number] [place] [address] 15 Oct, 2011 [facility] [place] [facility] [address] [id number] [place] [address] 13 Oct, 2011 [facility] [place] [facility] [address] [id number] [place] [address] Oct, [facility] [address] [id number] [place] [address] Sep, [facility] [address] [id number] [place] [address] Sep, [facility] [address] [id number] [place] [address] Sep, [facility] [address] [id number] [place] [address] Sep, [facility] [address] [id number] [place] [address] Sep, [facility] [address] [id number] [place] [address] Sep, [facility] [address] [id number] [place] [address] Aug, [facility] [address] [id number] [place] [address] July, [facility] [address] [id number] [place] [address] July, [facility] [address] [id number] [place] [address] Jun, [facility] [address] [id number] [place] [address] Jun, [facility] [address] [id number] [place] [address] Jun, [facility] [address] [id number] [place] [address] Jun, [facility] [address] [id number] [place] [address] Jun, [facility] [address] [id number] [place] [address] Jun, [facility] [address] [id number] [place] [address] 09 Jun, 2011 [facility] [address] [id number] [place] [address]- [address] 08 Jun, 2011 [facility] [address] [id number] [place] [address] Jun, [facility] [address] [id number] [place] [address] Jun, [facility] [address] [id number] [place] [address] Jun, [facility] [address] [id number] [place] [address] 19 May, 2011 [facility] [address] [id number] [place] [address] 16 May, 2011 [facility] [address] [id number] [place] [address]- [address] 14 May, 2011 [facility] [address] [id number] [place] [address] 06 May, 2011 [facility] [address] [id number] [place] [address] 28 Apr, 2011 [facility] [address] [id number] [place] [address] Apr, [facility] [address] [id number] [place] [address] 27 Apr, 2011 [facility] [address] [id number] [place] [address] Apr, [facility] [address] [id number] [place] [address] 23 Apr, 2011 [facility] [address] [id number] [place] [address] 22 Apr, 2011 [facility] [address] [id number] [place] [address] Apr, [facility] [address] [id number] [place] [address] Apr, [facility] [address] [id number] [place] [address] Mar, [facility] [address] [id number] [place] [address] Mar, [facility] [address] [id number] [place] [address] Mar, [facility] [address] [id number] [place] [address] Mar, [facility] [address] [id number] [place] [address] Mar, [facility] [address] [id number] [place] [address] Mar, [facility] [address] [id number] [place] [address] Mar, [facility] [address] [id number] [place] [address]- [address] Mar, [facility] [address] [id number] [place] [address]- [address] Mar, [facility] [address] [id number] [place] [address] Mar, [facility] [address] [id number] [place] [address] Mar, [facility] [address] [id number] [place] [address] Mar, [facility] [address] [id number] [place] [address] Mar, [facility] [address] [id number] [place] [address] Mar, [facility] [address] [id number] [place] [address]- [address] Mar, [facility] [address] [id number] [place] [address] 13[address] Mar, [facility] [address] [id number] [place] [address] Feb, [facility] [address] [id number] [place] [address] Feb, [facility] [address] [id number] [place] [address]- 97[address] Feb, [facility] [address] [id number] [place] [address] 79[address] Jan, [facility] [address] [id number] [place] [address] Jan, [facility] [address] [id number] [place] [address] Jan, [facility] [address] [id number] [place] [address]- [address]181 Dec, [facility] [address] [id number] [place] [address] Dec, [facility] [address] [id number] [place] [address] Nov, [facility] [address] [id number], [place] [address] Oct, [facility] [address] [id number] [place] [address]- 45[address] Oct, [facility] [address] [id number] [place] [address]- 5373 Oct, [facility] [address] [id number], [place] [address] Sep, [facility] [address] [id number], [place] [address] Apr, [facility] [address] [facility] [id number] [place] [address] Feb, [facility] [address] [facility] [id number], [place] [address] Jan, IMMUNIZATIONS No Known Immunizations SOCIAL HISTORY Never Assessed REASON FOR VISIT f/u PLAN OF CARE Activity Details Follow Up Every 2 weeks, 1/2 hour session. Reason: VITAL SIGNS MEDICATIONS Unknown Medications RESULTS No Results PROCEDURES Procedure Date Ordered Result Body Site Psychotherapy, patient &/family, 30 minutes, established patient August 26, 2016 INSTRUCTIONS MEDICATIONS ADMINISTERED No Known Medications MEDICAL (GENERAL) HISTORY Type Description Date Medical History COPD Medical History asthma Medical History heart cath Medical History Social phobia Medical History MRSA in right lung Medical History diabetes Surgical History heart cath 03/2015 Hospitalization History for surgeries Hospitalization History AMS 2/2 Benzos OD, pneumonia MRSA, [facility], Hypokalemia-- [facility] 12/20/2015 Hospitalization History COPD exacerbation, Asthma-[facility] 09/21/16 Hospitalization History COPD-[facility] 12/30/2016 Hospitalization History [facility] for inpatient-last around 2006 or so. Hospitalization History for COPD x2 Mar 2017 Hospitalization History Upper GI bleed at [facility] 2017
[2017-06-13] MEDS ORDERED: LORazepam INJ 2 MG/ML (ATIVAN) VIAL IVP ONE ×2 (17:00→17:45)
--- OUTSIDE RECORDS SUMMARY | 2017-06-13 17:00 | XMS REPORT ---
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 Active Problem Thrush B37.0 Active 52997663 Problem TMJ (sprain of temporomandibular joint) S03.4XXA Active 52298348 Problem Anxiety F41.9 Active 81667562 Problem Tobacco abuse Z72.0 Active 66374915 Problem Non morbid obesity due to excess calories E66.09 Active 997915277 Problem Migraine G43.909 Active 14081413 Problem History of MRSA infection Z86.14 Active 901605563 Problem Knee pain, left M25.562 Active 30314080 Problem Obesity, unspecified obesity severity, unspecified obesity type E66.9 Active 306966387 Problem Migraine without aura and without status migrainosus, not intractable G43.009 Active 261261335 Problem Other emphysema J43.8 Active 21158521 Problem Intractable cyclical vomiting with nausea G43.A1 Active 76622248 Problem Viral illness B34.9 Active 32416351 Problem Dry mouth R68.2 Active 91942023 Problem Encounter for tobacco use cessation counseling Z71.6 Active 656677121 Problem Acute bronchitis with COPD J44.0 Active [id number] Problem Methamphetamine use disorder, moderate, 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 Active 16307685 Problem Chronic bronchitis, unspecified chronic bronchitis type J42 Active 48792648 Problem COPD exacerbation J44.1 Active 967857373 Problem Diabetes E11.9 Active 325073509 Problem Memory loss R41.3 Active 69839120 Problem Left knee pain M25.562 Active 22194452 Problem Chronic constipation K59.09 Active 614280218 Problem Yeast vaginitis B37.3 Active 08718517 Problem Generalized anxiety disorder F41.1 Active 12545963 Problem Bipolar disorder with depression F31.30 Active 62873479 Problem Bipolar disorder, unspecified F31.9 Active 71305395 Problem Bipolar disorder, current episode depressed, severe, without psychotic features F31.4 Active 32792044 ALLERGIES Substance Reaction Event Type Date Status Buspar 10 Mg Tablet made legs shaky Non Drug Allergy Aug, Active Benzodiazepines NARC ALERT Broke narc contract Non Drug Allergy Aug Active Narcotic NARC ALERT Broke Narc contract Non Drug Allergy Aug, Active ENCOUNTERS Encounter Location Date Diagnosis [facility] [id number] [place] [address] 39977- 3917 Jun, [facility] [id number] [place] [address] 42546- 6313 May, [facility] [id number] [place] [address] 19656- 4568 May, [facility] [id number] [place] [address] 51887- 9530 May, [facility] [id number] [place] [address] 73512 -6467 17 May, 2017 [facility] [id number] [place] [address] 23286- 9006 16 May, 2017 [facility] [id number] [place] [address] 45538- 3781 15 May, 2017 [facility] [id number] [place] [address] 69093- 6520 14 May, 2017 Diarrhea, unspecified type R19.7 and Intractable cyclical vomiting with nausea G43.A1 [facility] [id number] [place] [address] 73208- 6223 12 May, 2017 [facility] [id number] [place] [address] 34883- 5336 May, [facility] [address] 39513- 3859 Apr, COPD exacerbation J44.1 ; Esophageal candidiasis B37.81 ; Other acute gastritis with hemorrhage K29.01 and Acute posthemorrhagic anemia D[address] [place] [address] 10645- 9283 Apr, Viral illness B34.9 and COPD exacerbation J44.1 [facility] [address] 01894 -6071 Apr, Shortness of breath R06.02 and Pneumonia of both lower lobes due to infectious organism J18.9 [facility] IN [facility] [address] 46963 -7729 Mar, COPD with acute exacerbation J44.1 [place] [address] 16627- 9850 Mar, Chronic obstructive pulmonary disease with acute exacerbation J44.1 and Diabetes E11.9 [place] [address] 04056- 7167 Mar, [facility] [address] 20478- 7951 Mar, [facility] [address] 77693 -5228 Mar, COPD exacerbation J44.1 [place] [address] 86195- 3402 Mar, [place] [address] 05852- 7906 Mar, Migraine G43.909 ; Hypokalemia E87.6 and Type 2 diabetes mellitus without complications E11.9 [place] [address] 69233- 5251 Feb, [facility] [address] [place] [address] 84513- 8222 Feb, [facility] [id number] [place] [address] 10976- 9381 Feb, Methamphetamine use disorder, moderate, 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 ; Major depressive disorder, recurrent, moderate F33.1 ; Anxiety disorder, unspecified F41.9 and Tobacco abuse Z72.0 [place] [facility] [id number] [place] [address] 42906- 8186 Jan, Major depressive disorder, recurrent, moderate F33.1 [facility] [id number] [place] [address] 74939- 7258 16 Jan, 2017 [facility] [id number] [place] [address] 13751- 8256 Jan, [facility] [id number] [place] [address] 64655- 4126 Jan, Major depressive disorder, recurrent, moderate F33.1 [place] [facility] [id number] [place] [address] 91988- 8010 Jan, Major depressive disorder, recurrent, moderate F33.1 ; Anxiety disorder, unspecified F41.9 ; Methamphetamine use disorder, moderate, 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 and Tobacco abuse Z72.0 [place] [id number] [place] [address] 41061- 5939 Jan, [facility] [id number] [place] [address] 70892- 2820 Jan, Chronic obstructive pulmonary disease with acute exacerbation J44.1 and Diabetes E11.9 [facility] [id number] [place] [address] 22532- 7959 Jan, [facility] [id number] [place] [address] 12490- 2682 Jan, [facility] [id number] [place] [address] 11127- 6986 Dec, Acute respiratory failure with hypoxia J96.01 and Chronic bronchitis, unspecified chronic bronchitis type J42 [facility] [id number] [place] [address] 82797- 1434 Dec, [facility] [address] [place] [address] [id number] Nov, Dental caries K02.9 and Dental examination Z01.20 [facility] [id number] [place] [address] 57659- 8398 Nov, Major depressive disorder, recurrent, moderate F33.1 ; Anxiety disorder, unspecified F41.9 and 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 [facility] [id number] [place] [address] [id number] Oct, Dental examination Z01.20 [place] [facility] [id number] [place] [address] 42915- 0697 Oct, [facility] [id number] [place] [address] 28042- 1373 Oct, Diabetes E11.9 and Thrush B37.0 [facility] [id number] [place] [address] 72803- 6742 Oct, [facility] [id number] [place] [address] 48454- 8357 Oct, [facility] [id number] [place] [address] 36481- 9130 Oct, [facility] [id number] [place] [address] 08553- 5468 Sep, Major depressive disorder, recurrent, moderate F33.1 ; Anxiety disorder, unspecified F41.9 and Bipolar disorder, unspecified F31.9 [facility] [address] [place] [address] 28487- 0714 Sep, Acute exacerbation of chronic obstructive pulmonary disease (COPD) J44.1 and Migraine G43.909 [facility] [address] [address] 8317 Sep, [facility] [id number] [place] [address] [id number] Sep, [facility] [address] [place] [address]- 0686 Sep, Acute exacerbation of chronic obstructive pulmonary disease (COPD) J44.1 [facility] [address] [address] Sep, Acute exacerbation of chronic obstructive pulmonary disease (COPD) J44.1 [facility] [address] [place] [address] 25710- 6944 Aug, [facility] [address] [place] [address] 11221- 7847 Aug, Major depressive disorder, recurrent, moderate F33.1 ; Anxiety disorder, unspecified F41.9 and 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 [facility] [address] [address]- 0143 Aug, Wheezing R06.2 ; Non morbid obesity due to excess calories E66.09 ; Migraine without aura and without status migrainosus, not intractable G43.009 and Tobacco abuse Z72.0 [facility] [id number] [id number] 14 Aug, 2016 Encounter for dental examination Z01.20 [facility] [address] [place] [address]- 8431 02 Aug, 2016 Major depressive disorder, recurrent, moderate F33.1 ; Anxiety disorder, unspecified F41.9 and 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 [facility] [address], [place] [address]- 6765 July, [facility] [address] [place] [address]- 7818 July, [facility] [id number] [place] [address] 65087- 6701 July, [facility] [address] 77969- 7628 July, Diabetes E11.9 [facility] [id number] [place] [address] 46834- 6936 Jun, Major depressive disorder, recurrent, moderate F33.1 [place] [id number] [place] [address] 70856- 4439 Jun, Major depressive disorder, recurrent, moderate F33.1 ; 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 ; Generalized anxiety disorder F41.1 and Bipolar disorder, unspecified F31.9 [place] [id number] [place] [address] 76421- 9064 Jun, Diabetes E11.9 ; Migraine G43.909 ; Thrush B37.0 and Wheezing R06.2 [facility] [address] [id number] Jun, Dental examination Z01.20 [place] [address] 68794- 6145 Jun, [facility] [id number] [place] [address] 50988- 5435 Jun, Major depressive disorder, recurrent, moderate F33.1 ; Anxiety disorder, unspecified F41.9 and 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 [facility] [id number] [place] [address] 08088- 9076 Jun, [facility] [address] 48618- 1834 Jun, Wheezing R06.2 [facility] [address] [id number] Jun, Dental caries K02.9 [facility] [address] 06540- 0764 Jun, Major depressive disorder, recurrent, moderate F33.1 ; Anxiety disorder, unspecified F41.9 and 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 [place] [address] [place] [address] 48287- 7467 Jun, RLQ abdominal pain R10.31 ; Diabetes E11.9 ; Obesity, unspecified obesity severity, unspecified obesity type E66.9 ; Wheezing R06.2 and Abnormal urinalysis R82.90 [place] [id number] [place] [address] 66641- 2378 May, [place] [address] 73007- 9412 May, Well woman exam Z01.419 ; Breast cancer screening Z12.39 ; Cervical cancer screening Z12.4 ; Urinary frequency R35.0 ; Edema, unspecified type R60.9 and Chronic constipation K59.09 [place] [facility] [id number] [place] [address] 32330- 6741 May, Major depressive disorder, recurrent, moderate F33.1 ; Anxiety disorder, unspecified F41.9 and 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 [facility] [id number] [place] [address] [id number] May, Dental examination Z01.20 [facility] [id number] [place] [address] 25552- 0253 May, [place] [id number] [place] [address] 78878- 8094 May, [facility] [id number] [place] [address] 23018- 4503 May, Chronic constipation K59.09 [place] [facility] [id number] [place] [address] 50766- 4192 Apr, [place] [address] 57676- 7183 Apr, Major depressive disorder, recurrent, moderate F33.1 ; Anxiety disorder, unspecified F41.9 and 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 [place] [facility] [id number] [place] [address] 29564- 2168 Apr, [place] [facility] [id number] [place] [address] 01826- 1536 Mar, Major depressive disorder, recurrent, moderate F33.1 [place] [facility] [id number] [place] [address] 83655- 3244 Mar, Major depressive disorder, recurrent, moderate F33.1 ; Generalized anxiety disorder F41.1 and Bipolar I disorder, most recent episode depressed with anxious distress F31.30 [place] [id number] [place] [address] 56309- 4118 Mar, Diabetes E11.9 ; Non morbid obesity due to excess calories E66.09 ; Breast cancer screening Z12.39 and Encounter for immunization Z23 [place] [facility] [id number] [place] [address] 47755- 5586 Mar, Major depressive disorder, recurrent, moderate F33.1 ; Anxiety disorder, unspecified F41.9 and 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 [place] [facility] [id number] [place] [address] 05543- 7119 Mar, [place] [id number] [place] [address] 60456- 0964 Feb, Major depressive disorder, recurrent, moderate F33.1 ; Anxiety disorder, unspecified F41.9 and 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 [place] [id number] [place] [address] 58274- 1886 Feb, [place] [id number] [place] [address] 36867- 4275 Feb, [place] [address] 86822- 2454 Jan, Major depressive disorder, recurrent, moderate F33.1 ; Generalized anxiety disorder F41.1 and Bipolar disorder, current episode depressed, severe, without psychotic features F31.4 [facility] [address] [place] [address] 02764- 1896 Jan, Major depressive disorder, recurrent, moderate F33.1 ; Anxiety disorder, unspecified F41.9 and 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 [facility] [id number] [place] [address] 24365- 9950 Jan, Bronchitis J40 [facility] [id number] [place] [address] 15218- 7174 Jan, [facility] [id number] [place] [address] 35123- 0846 Jan, [facility] [id number] [place] [address] 59880- 0532 Jan, Elbow injury, right, initial encounter S59.901A ; Multiple contusions T14.8 and Cervical strain, acute, initial encounter S16.1XXA [facility] [id number] [place] [address] 40880- 4748 Dec, Major depressive disorder, recurrent, moderate F33.1 ; Generalized anxiety disorder F41.1 and Bipolar disorder with depression F31.30 [facility] [id number] [place] [address] 65628- 9935 Dec, [facility] [id number] [place] [address] 07315- 7216 Dec, [facility] [id number] [place] [address] 21536- 6401 Dec, [facility] [id number] [place] [address] 93561- 1635 Dec, [facility] [id number] [place] [address] 34215- 1101 18 Oct, 2016 Yeast infection B37.9 [facility] [id number], [place] [address]- 9460 18 Dec, 2015 Pneumonia of both lungs due to methicillin resistant Staphylococcus aureus (MRSA), unspecified part of lung J15.212 and Benzodiazepine overdose, accidental or unintentional, subsequent encounter T42.4X1D [facility] [address], [place] [address]- 1235 Dec, [place] [address] [place] [address] 70913- 6430 Dec, [place] [address] [place] [address] 31591- 3174 Dec, Knee pain, left M25.562 and Edema, unspecified type R60.9 [place] [facility] [address] [place] [address] 81139- 7896 Dec, [place] [id number] [place] [address] 27118- 9046 Dec, Anxiety disorder, unspecified F41.9 and Bipolar disorder, unspecified F31.9 [place] [address] [place] [address] 86573- 1585 Nov, Major depressive disorder, recurrent, moderate F33.1 ; Anxiety disorder, unspecified F41.9 and 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 [place] [address], [place] [address]- 5722 Nov, [place] [address] [place] [address] 73190- 1511 Nov, Migraine without aura and without status migrainosus, not intractable G43.009 [place] [id number] [place] [address] 07447- 4667 Nov, Migraine G43.909 [place] [facility] [id number] [place] [address] 85204- 9798 Nov, [place] [facility] [id number] [place] [address] 69938- 3855 Nov, Major depressive disorder, recurrent, moderate F33.1 ; Anxiety disorder, unspecified F41.9 and 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 [place] [facility] [id number] [place] [address] 16297- 8277 Oct, Chronic constipation K59.09 and Obesity, unspecified obesity severity, unspecified obesity type E66.9 [facility] [id number] [place] [address] 21805- 4182 Oct, Obesity, unspecified obesity severity, unspecified obesity type E66.9 ; Chronic constipation K59.09 and Anxiety disorder, unspecified F41.9 [place] [id number] [place] [address] 18143- 6138 Oct, [place] [facility] [id number] [place] [address] 86492- 9132 Sep, Diabetes E11.9 ; Edema, unspecified type R60.9 ; Varicose vein of leg I83.90 and Obesity, unspecified obesity severity, unspecified obesity type E66.9 [place] [facility] [id number] [place] [address] 34996- 7076 Sep, Edema, unspecified type R60.9 ; Diabetes E11.9 and Knee pain , left M25.562 [place] [facility] [id number] [place] [address] 94820- 3269 Sep, [place] [id number] [place] [address] 69040- 7653 Sep, [place] [id number] [place] [address] 91512- 5927 Sep, Major depressive disorder, recurrent, moderate F33.1 ; Generalized anxiety disorder F41.1 and Bipolar disorder, unspecified F31.9 [place] [facility] [id number] [place] [address] 00615- 7136 Aug, Chondromalacia of left knee M94.262 [facility] [id number], [place] [address]- 2773 24 Aug, 2015 Major depressive disorder, recurrent, moderate F33.1 ; Anxiety disorder, unspecified F41.9 and 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 [facility] [address] [place] [address] 79782- 9613 Aug, [facility] [id number] [place] [address] 80627- 6370 Aug, Osteoarthritis of left knee M17.9 [facility] [id number] [place] [address] 10187- 5223 Aug, [facility] [address] [place] [address] 76314- 7196 July, Major depressive disorder, recurrent, moderate F33.1 ; Anxiety disorder, unspecified F41.9 and 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 [facility] [address] [place] [address] 67222- 8021 July, [facility] [id number] [place] [address] 45488- 4284 July, Chronic constipation K59.09 [facility] [address] [place] [address] 20853- 4131 Jun, [facility] [id number] [place] [address] 28757- 8486 15 Jun, 2015 [facility] [address] [place] [address] 21074- 1940 14 Jun, 2015 Osteoarthritis of left knee M17.9 [facility] [id number] [place] [address] 55583- 4116 Jun, [facility] [address] [place] [address] 01036- 6754 Jun, Generalized anxiety disorder F41.1 ; Bipolar disorder, unspecified F31.9 and Major depressive disorder, recurrent, moderate F33.1 [facility] [id number] [place] [address] 41384- 5859 Jun, Migraine G43.909 [facility] [id number] [place] [address] 65162- 9102 Jun, Left knee pain M25.562 ; Chronic constipation K59.09 ; Dry mouth R68.2 ; Yeast vaginitis B37.3 and Memory loss R41.3 [place] [facility] [address] 12659- 6426 Jun, [place] [facility] [address] 96344- 3312 May, [place] [facility] [address] 15288- 3612 May, [place] [facility] [address] 79402- 1738 May, [place] [facility] [id number] [place] [address] 88783- 4946 May, [place] [facility] [address] 08472- 9132 May, Acute bronchitis with COPD J44.0 ; Knee pain, left M25.562 and Encounter for tobacco use cessation counseling Z71.6 [place] [facility] [id number] [place] [address] 87498- 3372 May, [place] [address] [address]- 4730 Apr, Diabetes E11.9 ; TMJ (sprain of temporomandibular joint) S03.4XXA ; Tobacco abuse Z72.0 ; Migraine G43.909 and Anxiety F41.9 [place] [id number] [place] [address] 55083- 7879 Apr, Generalized anxiety disorder F41.1 and Bipolar disorder, unspecified F31.9 [facility] [address] [address] 24 Apr, 2015 Major depressive disorder, recurrent, moderate F33.1 ; Anxiety disorder, unspecified F41.9 and 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 [facility] [address], [place] [address] 4636 Apr, [facility] [id number] [place] [address] 69975- 5500 Mar, [facility] [id number] [place] [address] 88035- 0156 Feb, [facility] [id number] [place] [address] 94460- 1151 Feb, Major depressive disorder, recurrent, moderate F33.1 ; Anxiety disorder, unspecified F41.9 and 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 [facility] [address] [place] [address] 61668- 2224 Feb, [facility] [address] [place] [address] 47561- 0273 Feb, Generalized anxiety disorder F41.1 and Bipolar disorder, unspecified F31.9 [facility] [address] [address] 8326 Jan, [facility] [address], [place] [address]- 2061 18 Jan, 2015 [facility] [address] [place] [address] 84182- 2750 Jan, Bipolar disorder, unspecified F31.9 and Generalized anxiety disorder F41.1 [facility] [address] [address]- 9306 14 Dec, 2014 [facility] [address] [address]- 5377 Dec, Bipolar disorder, unspecified F31.9 and Generalized anxiety disorder F41.1 [facility] [id number] [place] [address] 10933- 2989 Dec, Generalized anxiety disorder F41.1 and Major depressive disorder, recurrent, moderate F33.1 [facility] [id number] [place] [address] 60355- 4760 Oct, Headache 784.0 ; Cough 786.2 ; Vomiting and diarrhea 787.03 and Dysuria 788.1 [facility] [address] 89679- 3241 Aug, [facility] [address] 96514- 9521 Aug, Headache 784.0 and Shortness of breath 786.05 [facility] [address] 16627- 2393 Aug, [facility] [address] 05604- 2744 Aug, Migraine 346.90 [facility] [id number] [place] [address] 72332- 3225 Jun, [facility] [id number] [place] [address] 30148- 0956 Jun, [facility] [id number] [place] [address] 73982- 4174 May, [facility] [id number] [place] [address] 70836- 0500 May, [facility] [id number] [place] [address] 33697- 3959 May, [facility] [address] 58608- 3325 May, [facility] [id number] [place] [address] 22812- 8380 May, [facility] [address] [place] [address]- 5977 May, [facility] [place] [facility] [address] [id number] [place] [address]- 6879 Apr, 2014 [facility] [place] [facility] [address] [id number] [place] [address]- 9116 Apr, 2014 [facility] [place] [facility] [address] [id number] [place] [address]- 1669 Apr, 2014 [facility] [place] [facility] [address] [id number] [place] [address]- 1086 Apr, 2014 [facility] [place] [facility] [address] [id number] [place] [address]- 2747 Apr, 2014 [facility] [place] [facility] [address] [facility] [id number] [place] [address]- 2434 Mar, [facility] [place] [facility] [address] [facility] [id number] [place] [address]- 1043 Mar, [facility] [place] [facility] [address] [facility] [id number] [place] [address]- 7678 Mar, [facility] [place] [facility] [address] [facility] [id number] [place] [address]- 6910 Mar, [facility] [place] [facility] [address] [facility] [id number] [place] [address]- 2659 Feb, [facility] [place] [facility] [address] [id number] [place] [address]- 8037 19 Feb, 2014 [facility] [place] [facility] [address] [id number] [place] [address]- 7167 18 Feb, 2014 [facility] [place] [facility] [address] [id number] [place] 3722 18 Feb, 2014 [facility] [place] [facility] [address] [id number] [place] 2493 16 Feb, 2014 [facility] [place] [facility] [address] [facility] [id number] [place] 9823 Feb, [facility] [place] [facility] [address] [id number] [place] [address]- 9583 Feb, [facility] [place] [facility] [address] [id number] [place] [address]- 1013 Feb, [facility] [place] [facility] [address] [id number] [place] 5259 Feb, [facility] [place] [facility] [address] [id number] [place] [address]- 9839 Feb, [facility] [place] [facility] [address] [id number] [place] [address]- 1473 Feb, [facility] [place] [facility] [address] [id number] [place] [address]- 3141 Feb, [facility] [place] [facility] [address] [id number] [place] [address]- 8998 Jan, [facility] [place] [facility] [address] [id number] [place] [address]- 7914 Jan, [facility] [place] [facility] [address] [id number] [place] [address]- 8916 Dec, [facility] [place] [facility] [address] [id number] [place] [address]- 1137 Dec, [facility] [place] [facility] [address] [facility] [id number] [address]- 0947 Dec, [facility] [place] [facility] [address] [id number], [place] [address]- 1848 Dec, [facility] [place] [facility] [address] [id number] [place] [address]- 0844 Dec, [facility] [place] [facility] [address] [id number] [place] [address]- 8175 Dec, [facility] [place] [facility] [address] [id number], [place] [address]- 9928 Sep, [facility] [place] [facility] [address] [id number], [place] [address]- 9768 Sep, [facility] [place] [facility] [address] [id number] [place] [address]- 2208 Sep, [facility] [place] [facility] [address] [id number] [place] [address]- 8535 Sep, [facility] [place] [facility] [address] [id number] [place] [address]- 0613 Sep, [facility] [place] [facility] [address] [id number] [place] [address]- 5419 Sep, 2013 [facility] [place] [facility] [address] [id number] [place] [address]- 9022 Sep, [facility] [place] [facility] [address] [id number] [place] [address]- 7336 Sep, [facility] [place] [facility] [address] [id number] [place] [address]- 6094 Sep, [facility] [place] [facility] [address] [id number] [place] [address]- 2562 Sep, [facility] [place] [facility] [address] [id number] [place] [address]- 5691 Aug, [facility] [place] [facility] [address] [id number] [place] [address]- 6196 Aug, [facility] [place] [facility] [address] [id number] [place] [address]- 0152 Aug, [facility] [place] [facility] [address] [id number] [place] [address]- 8454 Aug, [facility] [place] [facility] [address] [id number] [place] [address]- 6648 Aug, [facility] [place] [facility] [address] [id number] [place] [address]- 1272 Aug, [facility] [place] [facility] [address] [id number] [place] [address]- 1701 Aug, [facility] [place] [facility] [address] [id number] [place] [address]- 2338 Aug, [facility] [place] [facility] [address] [id number] [place] [address]- 6980 Aug, [facility] [place] [facility] [address] [id number] [place] [address]- 2281 Aug, [facility] [place] [facility] [address] [id number] [place] [address]- 3617 Aug, [facility] [place] [facility] [address] [id number] [place] [address]- 7244 Aug, [facility] [place] [facility] [address] [id number] [place] [address]- 9700 Aug, [facility] [place] [facility] [address] [id number] [place] [address]- 7909 July, [facility] [place] [facility] [address] [id number] [place] [address]- 5540 July, [facility] [place] [facility] [address] [id number] [place] [address]- 2404 July, [facility] [place] [facility] [address] [id number] [place] [address]- 0470 July, [facility] [place] [facility] [address] [id number] [place] [address]- 6848 July, [facility] [place] [facility] [address] [id number] [place] [address]- 4484 July, [facility] [place] [facility] [address] [id number] [place] [address]- 8075 July, [facility] [place] [facility] [address] [id number] [place] [address]- 1311 Jun, [facility] [place] [facility] [address] [id number] [place] [address]- 9038 Jun, [facility] [place] [facility] [address] [id number] [place] [address]- 9597 18 Jun, 2013 [facility] [place] [facility] [address] [id number] [place] [address]- 8124 16 Jun, 2013 [facility] [place] [facility] [address] [id number] [place] [address]- 8637 16 Jun, 2013 [facility] [place] [facility] [address] [id number] [place] [address]- 0625 08 Jun, 2013 [facility] [place] [facility] [address] [id number] [place] [address]- 2468 08 Jun, 2013 [facility] [place] [facility] [address] [id number] [place] [address]- 1997 17 May, 2013 [facility] [place] [facility] [address] [id number] [place] [address]- 0502 17 May, 2013 [facility] [place] [facility] [address] [id number] [place] [address]- 8069 14 May, 2013 [facility] [place] [facility] [address] [id number] [place] [address]- 7970 14 May, 2013 [facility] [place] [facility] [address] [id number] [place] [address]- 4373 13 May, 2013 [facility] [place] [facility] [address] [id number] [place] [address]- 8608 13 May, 2013 [facility] [place] [facility] [address] [id number] [place] [address]- 5467 10 May, 2013 [facility] [place] [facility] [address] [id number] [place] [address]- 8275 10 May, 2013 [facility] [place] [facility] [address] [id number] [place] [address]- 8074 07 May, 2013 [facility] [place] [facility] [address] [id number] [place] [address]- 2259 Apr, [facility] [place] [facility] [address] [id number] [place] [address]- 3192 Apr, [facility] [place] [facility] [address] [id number] [place] [address]- 4008 18 Apr, 2013 [facility] [place] [facility] [address] [id number] [place] [address]- 5596 Apr, [facility] [place] [facility] [address] [id number] [place] [address]- 6486 15 Apr, 2013 [facility] [place] [facility] [address] [id number] [place] [address]- 4236 Apr, [facility] [place] [facility] [address] [id number] [place] [address]- 4856 Apr, [facility] [place] [facility] [address] [id number] [place] [address]- 0886 Apr, [facility] [place] [facility] [address] [facility] [id number] [place] [address]- 2083 Apr, [facility] [place] [facility] [address] [facility] [id number] [place] [address]- 0177 Apr, [facility] [place] [facility] [address] [id number] [place] [address]- 5543 Mar, [facility] [place] [facility] [address] [facility] [id number] [place] [address]- 4952 Mar, [facility] [place] [facility] [address] [facility] [id number] [place] [address]- 0227 Mar, [facility] [place] [facility] [address] [facility] [id number] [place] [address]- 8864 Mar, [facility] [place] [facility] [address] [id number] [place] [address]- 8514 Mar, [facility] [place] [facility] [address] [id number] [place] [address]- 4446 Mar, [facility] [place] [facility] [address] [facility] [id number] [place] [address]- 4545 Mar, [facility] [place] [facility] [address] [id number] [place] [address]- 1328 Mar, [facility] [place] [facility] [address] [id number] [place] [address]- 5630 10 Feb, 2013 [facility] [place] [facility] [address] [id number] [place] [address]- 4616 Feb, [facility] [place] [facility] [address] [facility] [id number] [place] 5807 Jan, [facility] [place] [facility] [address] [id number], [place] [address]- 2286 Jan, [facility] [place] [facility] [address] [id number] [place] [address]- 5927 15 Jan, 2013 [facility] [place] [facility] [address] [id number] [place] [address]- 7854 Jan, [facility] [place] [facility] [address] [id number] [place] [address]- 4776 Jan, [facility] [place] [facility] [address] [id number], [place] [address]- 5068 Jan, [facility] [place] [facility] [address] [id number], [place] [address]- 0129 05 Jan, 2013 [facility] [place] [facility] [address] [id number], [place] [address]- 8453 05 Jan, 2013 [facility] [place] [facility] [address] [id number], [place] [address]- 8217 13 Dec, 2012 [facility] [place] [facility] [address] [id number], [place] [address]- 9202 10 Dec, 2012 [facility] [place] [facility] [address] [id number], [place] [address]- 8418 10 Dec, 2012 [facility] [place] [facility] [address] [id number], [place] [address]- 9394 20 Nov, 2012 [facility] [place] [facility] [address] [id number], [place] [address]- 7726 13 Nov, 2012 [facility] [place] [facility] [address] [id number] [place] [address]- 7320 12 Nov, 2012 [facility] [address] [id number] [place] [address]- 6396 09 Nov, 2012 [facility] [place] [facility] [address] [id number] [place] [address]- 9186 Nov, [facility] [place] [facility] [address] [id number] [place] [address]- 3582 Nov, [facility] [place] [facility] [address] [id number] [place] [address]- 0469 Oct, [facility] [place] [facility] [address] [id number] [place] [address]- 5488 Oct, [facility] [place] [facility] [address] [id number] [place] [address]- 9680 Sep, [facility] [address] [id number] [place] [address]- 8364 Sep, [facility] [place] [facility] [address] [id number] [place] [address]- 9749 Sep, [facility] [place] [facility] [address] [id number] [place] [address]- 7786 Sep, [facility] [place] [facility] [address] [id number] [place] [address]- 7154 Sep, [facility] [place] [facility] [address] [id number] [place] [address]- 7071 Sep, [facility] [place] [facility] [address] [id number] [place] [address]- 6548 Sep, [facility] [place] [facility] [address] [id number] [place] [address]- 2262 Aug, [facility] [place] [facility] [address] [id number] [place] [address]- 5613 14 Aug, 2012 [facility] [place] [facility] [address] [id number] [place] [address]- 4592 Aug, [facility] [place] [facility] [address] [id number] [place] [address]- 7197 Aug, [facility] [address] [id number] [place] [address]- 3796 Aug, [facility] [address] [id number] [place] [address]- 8965 Aug, [facility] [address] [id number] [place] [address]- 0834 July, [facility] [address] [id number] [place] [address]- 2798 July, [facility] [address] [id number] [place] [address]- 4577 July, [facility] [address] [id number] [place] [address]- 7699 July, [facility] [address] [id number] [place] [address]- 3195 July, [facility] [address] [id number] [place] [address]- 6982 July, [facility] [address] [id number] [place] [address]- 3512 Jun, [facility] [address] [id number] [place] [address]- 7834 Jun, [facility] [address] [id number] [place] [address]- 1154 15 Jun, 2012 [facility] [address] [id number] [place] [address]- 8608 Jun, [facility] [place] [facility] [address] [id number] [place] [address]- 1876 Jun, [facility] [address] [id number] [place] [address]- 6876 Jun, [facility] [address] [id number] [place] [address]- 4636 Jun, [facility] [address] [id number] [place] [address]- 8886 May, [facility] [place] [facility] [address] [id number] [place] [address]- 6706 May, [facility] [place] [facility] [address] [facility] [id number] [place] [address]- 6856 26 Apr, 2012 [facility] [place] [facility] [address] [id number] [place] [address] 2541 Apr, 2012 [facility] [place] [facility] [address] [id number] [place] [address]- 2266 Apr, 2012 [facility] [place] [facility] [address] [id number] [place] [address]- 3546 Apr, 2012 [facility] [place] [facility] [address] [facility] [id number] [place] [address]- 3929 12 Apr, 2012 [facility] [place] [facility] [address] [id number] [place] [address] 2541 08 Apr, 2012 [facility] [place] [facility] [address] [facility] [id number] [place] [address]- 6021 07 Apr, 2012 [facility] [place] [facility] [address] [facility] [id number] [place] [address]- 2523 07 Apr, 2012 [facility] [place] [facility] [address] [facility] [id number] [place] [address] 06 Apr, 2012 [facility] [place] [facility] [address] [facility] [id number] [place] [address] 2544 06 Apr, 2012 [facility] [place] [facility] [address] [id number] [place] [address] 03 Apr, 2012 [facility] [place] [facility] [address] [facility] [id number] [place] [address] Mar, [facility] [place] [facility] [address] [facility] [id number] [place] [address] Mar, [facility] [address] [id number] [place] [address] Mar, [facility] [address] [id number] [place] [address] Mar, [facility] [address] [id number] [place] [address] Mar, [facility] [address] [id number] [place] [address] Mar, [facility] [address] [id number] [place] [address] Mar, [facility] [address] [id number] [place] [address] Mar, [facility] [address] [id number] [place] [address] Mar, [facility] [address] [id number] [place] [address] Mar, [facility] [address] [id number] [place] [address] Mar, [facility] [address] [id number], [place] [address] Mar, [facility] [address] [id number], [place] [address] Mar, [facility] [address] [id number], [place] [address] Feb, [facility] [place] [facility] [address] [id number] [place] [address] Feb, [facility] [place] [facility] [address] [id number] [place] [address]- [address] Feb, [facility] [place] [facility] [address] [id number], [place] [address] Feb, [facility] [place] [facility] [address] [id number], [place] [address] Feb, [facility] [place] [facility] [address] [id number] [place] [address] Feb, [facility] [place] [facility] [address] [id number] [place] [address] Feb, [facility] [place] [facility] [address] [facility] [id number] [place] [address] Feb, [facility] [place] [facility] [address] [id number] [place] [address] 58[address] Feb, [facility] [place] [facility] [address] [id number] [place] [address] Feb, [facility] [place] [facility] [address] [id number] [place] [address] Feb, [facility] [place] [facility] [id number] [address] Feb, [facility] [place] [facility] [address] [facility] [id number] [place] [address] 47[address] Feb, [facility] [place] [facility] [id number] [address] Feb, [facility] [place] [facility] [address] [facility] [id number] [place] [address] Feb, [facility] [place] [facility] [address] [facility] [id number] [place] [address] Jan, [facility] [place] [facility] [address] [id number], [place] [address] Jan, [facility] [place] [facility] [address] [id number] [place] [address] Jan, [facility] [place] [facility] [address] [facility] [id number] [place] [address] Jan, [facility] [place] [facility] [id number] [address] Dec, [facility] [place] [facility] [address] [id number] [place] [address] 29 Dec, 2011 [facility] [place] [facility] [address] [id number] [place] [address] Dec, 2011 [facility] [place] [facility] [address] [id number] [place] [address]- [address] Dec, 2011 [facility] [place] [facility] [address] [id number] [place] [address]39 Dec, [facility] [place] [facility] [address] [id number] [place] [address] Dec, [facility] [place] [facility] [address] [id number] [place] [address]- 6656 Dec, [facility] [place] [facility] [address] [id number] [place] [address]- 40[address] Dec, [facility] [place] [facility] [address] [id number] [place] [address]- [address] Dec, [facility] [place] [facility] [address] [id number] [place] [address]- [address] 04 Dec, 2011 [facility] [place] [facility] [address] [id number] [place] [address]- 1266 03 Dec, 2011 [facility] [place] [facility] [address] [id number] [place] [address]- 4870 25 Sep, 2011 [facility] [place] [facility] [address] [id number] [place] [address]- [address] 24 Sep, 2011 [facility] [place] [facility] [address] [id number] [place] [address] 2547 20 Sep, 2011 [facility] [place] [facility] [address] [id number] [place] [address] 2546 19 Sep, 2011 [facility] [place] [facility] [address] [id number] [place] [address] 2546 17 Sep, 2011 [facility] [place] [facility] [address] [id number] [place] [address]- 488[address] 16 Sep, 2011 [facility] [place] [facility] [address] [id number] [place] [address]- [id number] 14 Sep, 2011 [facility] [place] [facility] [address] [id number] [place] [address] 13 Sep, 2011 [facility] [place] [facility] [address] [id number] [place] [address] 12 Sep, 2011 [facility] [place] [facility] [address] [id number] [place] [address] 07 Sep, 2011 [facility] [place] [facility] [address] [id number] [place] [address] 06 Sep, 2011 [facility] [place] [facility] [address] [id number] [place] [address] 4[address] 06 Nov, 2011 [facility] [place] [facility] [address] [id number] [place] [address] 2906 05 Nov, 2011 [facility] [place] [facility] [address] [id number] [place] [address]645 29 Oct, 2011 [facility] [place] [facility] [address] [id number] [place] [address] 3558 29 Oct, 2011 [facility] [place] [facility] [address] [id number] [place] [address] 28 Oct, 2011 [facility] [place] [facility] [address] [id number] [place] [address]- 9555 28 Oct, 2011 [facility] [place] [facility] [address] [id number] [place] [address] 7757 23 Oct, 2011 [facility] [place] [facility] [address] [id number] [place] [address]- 4261 Oct, [facility] [place] [facility] [address] [id number] [place] [address] 3184 20 Oct, 2011 [facility] [place] [facility] [address] [id number] [place] [address] 3942 16 Oct, 2011 [facility] [place] [facility] [address] [id number] [place] [address] 1798 15 Oct, 2011 [facility] [place] [facility] [address] [id number] [place] [address] 8186 Oct, [facility] [place] [facility] [address] [id number] [place] [address] 6216 Oct, [facility] [place] [facility] [address] [id number] [place] [address] Sep, [facility] [place] [facility] [address] [id number] [place] [address] Sep, [facility] [place] [facility] [address] [id number] [place] [address] 6523 Sep, [facility] [place] [facility] [address] [id number] [place] [address]- 0411 Sep, [facility] [address] [id number] [place] [address] 9078 Sep, [facility] [place] [facility] [address] [id number] [place] [address] 0535 Sep, [facility] [place] [facility] [address] [id number] [place] [address] 8107 Aug, [facility] [place] [facility] [address] [id number] [place] [address] 9180 July, [facility] [place] [facility] [address] [id number] [place] [address]- 5296 July, [facility] [place] [facility] [address] [id number] [place] [address]- 7074 Jun, [facility] [place] [facility] [address] [id number] [place] [address]- 8340 Jun, [facility] [place] [facility] [address] [id number] [place] [address]- 2962 Jun, [facility] [place] [facility] [address] [id number] [place] [address]- 3553 Jun, [facility] [place] [facility] [address] [id number] [place] [address]- 8698 10 Jun, 2011 [facility] [place] [facility] [address] [id number] [place] [address]- 0304 Jun, [facility] [place] [facility] [address] [id number] [place] [address]- 8573 Jun, [facility] [place] [facility] [address] [id number] [place] [address]- 5926 08 Jun, 2011 [facility] [place] [facility] [address] [id number] [place] [address] 2966 Jun, [facility] [place] [facility] [address] [id number] [place] [address]- 4103 Jun, [facility] [place] [facility] [address] [id number] [place] [address]- 4481 Jun, [facility] [place] [facility] [address] [id number] [place] [address]- 4912 May, [facility] [place] [facility] [address] [id number] [place] [address]- 7914 16 May, 2011 [facility] [place] [facility] [address] [id number] [place] [address]- 0428 14 May, 2011 [facility] [place] [facility] [address] [id number] [place] [address]- 7216 06 May, 2011 [facility] [place] [facility] [address] [id number] [place] [address]- 3080 Apr, [facility] [place] [facility] [address] [id number] [place] [address]- 7042 Apr, [facility] [place] [facility] [address] [id number] [place] [address] 4033 27 Apr, 2011 [facility] [place] [facility] [address] [id number] [place] [address]- 1416 23 Apr, 2011 [facility] [place] [facility] [address] [id number] [place] [address]- 3131 Apr, [facility] [address] [id number] [place] [address]- 3226 Apr, [facility] [place] [facility] [address] [id number] [place] [address]- 1316 Apr, [facility] [address] [id number] [place] [address]- 7056 Apr, [facility] [place] [facility] [address] [id number] [place] [address] 2839 Mar, [facility] [address] [id number] [place] [address]- 3923 Mar, [facility] [place] [facility] [address] [id number] [place] [address]- 1754 Mar, [facility] [address] [id number] [place] [address]- 7205 Mar, [facility] [address] [id number] [place] [address]- 7778 Mar, [facility] [place] [facility] [address] [id number] [place] [address]- 4105 Mar, [facility] [address] [id number] [place] [address]- 7532 Mar, [facility] [place] [facility] [address] [id number] [place] [address]- 3199 Mar, [facility] [place] [facility] [address] [id number] [place] [address]- 7675 Mar, [facility] [place] [facility] [address] [id number] [place] [address]- 8590 Mar, [facility] [place] [facility] [address] [id number] [place] [address]- 2214 Mar, [facility] [address] [id number] [place] [address]- 3081 Mar, [facility] [place] [facility] [address] [id number] [place] [address]- 9571 Mar, [facility] [place] [facility] [address] [id number] [place] [address]- 1372 Mar, [facility] [place] [facility] [address] [id number] [place] [address]- 3648 Mar, [facility] [address] [id number] [place] [address], [place] [address]- 8192 Mar, [facility] [address] [id number] [place] [address]- 2528 Feb, [facility] [place] [facility] [address] [id number] [place] [address]- 1978 Feb, [facility] [address] [id number] [place] [address]- 9339 Feb, [facility] [address] [id number] [place] [address]- 6691 Jan, [facility] [place] [facility] [address] [id number] [place] [address] 1928 Jan, [facility] [place] [facility] [address] [id number] [place] [address]- 5842 Jan, [facility] [place] [facility] [address] [id number] [place] [address]- 0444 Dec, [facility] [place] [facility] [address] [id number] [place] [address]- 5187 Dec, [facility] [place] [facility] [address] [id number] [place] [address]- 1193 Nov, [facility] [place] [facility] [address] [id number] [place] [address]- 7055 Oct, [facility] [place] [facility] [address] [id number] [place] [address]- 6022 Oct, [facility] [place] [facility] [address] [id number], [place] [address]46 Oct, [facility] [address] [facility] [id number], [place] [address] 2546 Sep, [facility] [address] [facility] [id number], [place] [address] 2546 Apr, [facility] [address] [facility] [id number], [place] [address]- 2546 Feb, [facility] [address] [facility] [id number], [place] [address] Jan, IMMUNIZATIONS Vaccine Route Administration Date Status PHENERGAN 50MG/ML IM Intramuscular August 25, 2016 Administered TORADOL (IM) 60 MG/2ML (UP TO 15 MG) IM Intramuscular August 25, 2016 Administered SOCIAL HISTORY Never Assessed REASON FOR VISIT weight management - Pt is c/o labored breathing, wheezing, coughing, mucus is a creamy consistency and tinted green. Been ongoing for about 2 weeks. States mucus tastes salty. - Fransico FERREIRA, also c/o headache that will not go away. PLAN OF CARE Activity Details Follow Up 4 Weeks Reason:wt mgmt VITAL SIGNS Height 70 in 2016-08-25 Weight 246.9 lbs 2016-08-25 Temperature 98.5 degrees Fahrenheit 2016-08-25 Heart Rate 105 bpm 2016-08-25 Respiratory Rate 24 2016-08-25 Oximetry 97 % 2016-08-25 BMI 35.42 kg/m2 2016-08-25 Blood pressure systolic 118 mmHg 2016-08-25 Blood pressure diastolic 90 mmHg 2016-08-25 MEDICATIONS Medication Instructions Dosage Frequency Start Date End Date Duration Status Chantix Starting Month Mikie 0.5 MG X 11 & 1 MG X 42 Orally 2 times a day 0.5mg daily X 3 days, 0.5mg bid X 4 days, 1 tab bid 12h Aug, 30 days Active Neurontin 300 MG Orally PALS Three times a day 1 capsule 8h Dec, 30 days Active Ventolin HFA 90 mcg/actuation Inhalation every 4 hrs 2 puffs as needed 4h Dec, Active Advair Diskus 250 mcg-50 mcg Inhalation Twice a day 1 puff 12h Dec, Active Contrave 8-90 MG Orally Twice a day 2 tablets 12h Oct, 90 days Active Trulicity 0.75 MG/0.5ML Subcutaneous once weekly 0.5 ml Jun, 90 days Active Abilify 5 mg Orally Once a day 1 tablet 24h Jun, 90 days Active Hydrochlorothiazide 50 mg Orally Once a day 1 tablet 24h Sep, Active Amitriptyline HCl 150 MG Orally repository Once a day 1 tablet 24h 30 days Active Topamax 100 MG Orally Twice a day 1 tablet 12h 30 days Active Zyprexa 15 MG Orally Once a day 1 tablet 24h Jan, 30 days Active Spiriva HandiHaler 18 MCG Inhalation Once a day 1 capsule 24h Active PredniSONE 10 mg Orally Once a day 3 tablet 24h Aug, Aug, 05 days Active Wellbutrin SR 150 MG Orally Twice a day 1 tablet 12h Aug, 30 day(s) Active Cymbalta 60 mg Orally PALS Twice a day 1 capsule 12h Feb, 30 days Active RESULTS No Results PROCEDURES Procedure Date Ordered Result Body Site MEASURE BLOOD OXYGEN LEVEL August 25, 2016 PHENERGAN 50MG/ML August 25, 2016 THER/PROPH/DIAG INJ, SC/IM August 25, 2016 TORADOL (IM) 60 MG/2ML (UP TO 15 MG) August 25, 2016 INSTRUCTIONS MEDICATIONS ADMINISTERED No Known Medications MEDICAL (GENERAL) HISTORY Type Description Date Medical History COPD Medical History asthma Medical History heart cath Medical History Social phobia 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 Hospitalization History for COPD x2 Mar 2017 Hospitalization History Upper GI bleed at apr 2017
--- OUTSIDE RECORDS SUMMARY | 2017-06-13 17:02 | XMS REPORT ---
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 Active Problem Thrush B37.0 Active 77210361 Problem TMJ (sprain of temporomandibular joint) S03.4XXA Active 62968846 Problem Anxiety F41.9 Active 51229072 Problem Tobacco abuse Z72.0 Active 40300758 Problem Non morbid obesity due to excess calories E66.09 Active 407646327 Problem Migraine G43.909 Active 89895557 Problem History of MRSA infection Z86.14 Active 306034826 Problem Knee pain, left M25.562 Active 49339135 Problem Obesity, unspecified obesity severity, unspecified obesity type E66.9 Active 185275477 Problem Migraine without aura and without status migrainosus, not intractable G43.009 Active 417571645 Problem Other emphysema J43.8 Active 10287585 Problem Intractable cyclical vomiting with nausea G43.A1 Active 34097890 Problem Viral illness B34.9 Active 34366698 Problem Dry mouth R68.2 Active 35889979 Problem Encounter for tobacco use cessation counseling Z71.6 Active 211732395 Problem Acute bronchitis with COPD J44.0 Active [id number] Problem Methamphetamine use disorder, moderate, 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 Active 26109795 Problem Chronic bronchitis, unspecified chronic bronchitis type J42 Active 72910534 Problem COPD exacerbation J44.1 Active 078011107 Problem Diabetes E11.9 Active 257270132 Problem Memory loss R41.3 Active 56659032 Problem Left knee pain M25.562 Active 92415665 Problem Chronic constipation K59.09 Active 196532494 Problem Yeast vaginitis B37.3 Active 79589389 Problem Generalized anxiety disorder F41.1 Active 57455773 Problem Bipolar disorder with depression F31.30 Active 63817685 Problem Bipolar disorder, unspecified F31.9 Active 06045001 Problem Bipolar disorder, current episode depressed, severe, without psychotic features F31.4 Active 24317921 ALLERGIES No Information ENCOUNTERS Encounter Location Date Diagnosis [facility], [place] [address] [address] Jun, [facility], [place] [address] 96[address]- 7520 May, [facility], [place] [address] 05423- 5335 May, [facility], [place] [address] 45479- 0406 May, [facility] [id number] [place] [address] 24275 -6947 17 May, 2017 [facility], [place] [address] 301[address]- 1128 16 May, 2017 [facility], [place] [id number] [place] [address] 43450- 9228 15 May, 2017 [facility], [place] [address] 24182- 7234 14 May, 2017 Diarrhea, unspecified type R19.7 and Intractable cyclical vomiting with nausea G43.A1 [facility], [place] [address] 50869- 9535 12 May, 2017 [facility], [place] [id number] [place] [address] 83386- 5371 05 May, 2017 [facility], [place] [id number] [place] [address] 47944- 0022 Apr, COPD exacerbation J44.1 ; Esophageal candidiasis B37.81 ; Other acute gastritis with hemorrhage K29.01 and Acute posthemorrhagic anemia D62 [facility], [place] [address] 9[address]- 2092 Apr, Viral illness B34.9 and COPD exacerbation J44.1 [facility] [address] [address] -2717 Apr, Shortness of breath R06.02 and Pneumonia of both lower lobes due to infectious organism J18.9 [facility] WALK IN [facility] [address] [address] Mar, COPD with acute exacerbation J44.1 [place] [address] 62359- 8632 Mar, Chronic obstructive pulmonary disease with acute exacerbation J44.1 and Diabetes E11.9 [place] [address] 14226- 3863 Mar, [facility], [place] [address] 45976- 3335 Mar, 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 ; Major depressive disorder, recurrent, moderate F33.1 ; Anxiety disorder, unspecified F41.9 and Tobacco abuse Z72.0 [facility], [place] [id number] [place] [address] 23118- 1661 Jan, Major depressive disorder, recurrent, moderate F33.1 [place] [address] 99060- 3434 Jan, [facility], [place] [address] 60823- 6538 Jan, [place] [address] 14788- 9063 Jan, Major depressive disorder, recurrent, moderate F33.1 [place] [address] 87090- 4809 Jan, Major depressive disorder, recurrent, moderate F33.1 ; Anxiety disorder, unspecified F41.9 ; Methamphetamine use disorder, moderate, 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 and Tobacco abuse Z72.0 [place] [address] 87015- 0165 Jan, [place] [address] 86492- 5257 Jan, Chronic obstructive pulmonary disease with acute exacerbation J44.1 and Diabetes E11.9 [place] [id number] [place] [address] 61144- 9034 Jan, [facility], [place] [id number] [place] [address] 03651- 6446 Jan, [address] [address]- 6214 Dec, Acute respiratory failure with hypoxia J96.01 and Chronic bronchitis, unspecified chronic bronchitis type J42 [facility], [place] [address] [place] [address] 05937- 6673 Dec, [place] [address] [id number] Nov, Dental caries K02.9 and Dental examination Z01.20 [facility], [place] [id number] [place] [address] 70533- 6741 Nov, Major depressive disorder, recurrent, moderate F33.1 ; Anxiety disorder, unspecified F41.9 and 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 [facility] [id number] [place] [address] [id number] Oct, Dental examination Z01.20 [facility], [place] [id number] [place] [address] 06244- 0251 Oct, [facility], [place] [id number] [place] [address] 27311- 7266 Oct, Diabetes E11.9 and Thrush B37.0 [facility], [place] [id number] [place] [address] 36754- 0847 Oct, [facility], [place] [id number] [place] [address] 52487- 3087 Oct, [facility], [place] [id number] [place] [address] 78334- 6405 Oct, [facility], [place] [id number] [place] [address] 36527- 5914 Sep, Major depressive disorder, recurrent, moderate F33.1 ; Anxiety disorder, unspecified F41.9 and Bipolar disorder, unspecified F31.9 [facility], [place] [address] [place] [address] 56028- 1595 Sep, Acute exacerbation of chronic obstructive pulmonary disease (COPD) J44.1 and Migraine G43.909 [facility], [place] [id number] [place] [address] 75491- 2379 Sep, [facility] [id number] [place] [address] [id number] Sep, [facility], [place] [address] [address]- 8161 Sep, Acute exacerbation of chronic obstructive pulmonary disease (COPD) J44.1 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 [facility], [place] [address] [place] [address] 21516- 7676 19 Aug, 2016 Wheezing R06.2 ; Non morbid obesity due to excess calories E66.09 ; Migraine without aura and without status migrainosus, not intractable G43.009 and Tobacco abuse Z72.0 [facility] [address] [place] [address] [phone] 14 Aug, 2016 Encounter for dental examination Z01.20 [facility], [place] [address] [place] [address] 63784- 0384 02 Aug, 2016 Major depressive disorder, recurrent, moderate F33.1 ; Anxiety disorder, unspecified F41.9 and 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 [facility], [place] [address], [place] [address]- 7275 July, [facility], [place] [id number] [place] [address] 30477- 1188 July, [facility], [place] [id number] [place] [address] 63243- 4726 July, [facility], [place] [id number] [place] [address] 29647- 3108 July, Diabetes E11.9 [facility], [place] [id number] [place] [address] 14950- 9402 Jun, Major depressive disorder, recurrent, moderate F33.1 [facility], [place] [id number] [place] [address] 21040- 2646 Jun, Major depressive disorder, recurrent, moderate F33.1 ; 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 ; Generalized anxiety disorder F41.1 and Bipolar disorder, unspecified F31.9 [facility], [place] [address] 24078- 1769 Jun, Diabetes E11.9 ; Migraine G43.909 ; Thrush B37.0 and Wheezing R06.2 [facility] [address] [id number] Jun, Dental examination Z01.20 [place] [address] 88054- 5408 Jun, [facility], [place] [address] 40679- 8282 Jun, Major depressive disorder, recurrent, moderate F33.1 ; Anxiety disorder, unspecified F41.9 and 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 [facility], [place] [address] 59539- 7666 Jun, [facility], [place] [address] 73808- 7523 Jun, Wheezing R06.2 [facility] [address] [id number] Jun, Dental caries K02.9 [facility], [place] [address] 26952- 1152 Jun, Major depressive disorder, recurrent, moderate F33.1 ; Anxiety disorder, unspecified F41.9 and 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 [facility], [place] [address] 03950- 7080 Jun, RLQ abdominal pain R10.31 ; Diabetes E11.9 ; Obesity, unspecified obesity severity, unspecified obesity type E66.9 ; Wheezing R06.2 and Abnormal urinalysis R82.90 [facility], [place] [id number] [place] [address] 89307- 2655 May, [facility], [place] [id number] [place] [address] 83036- 4644 May, Well woman exam Z01.419 ; Breast cancer screening Z12.39 ; Cervical cancer screening Z12.4 ; Urinary frequency R35.0 ; Edema, unspecified type R60.9 and Chronic constipation K59.09 [facility], [place] [id number] [place] [address] 95120- 9709 May, Major depressive disorder, recurrent, moderate F33.1 ; Anxiety disorder, unspecified F41.9 and 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 [facility] [id number] [place] [address] [id number] May, Dental examination Z01.20 [facility], [place] [id number] [place] [address] 07417- 9382 May, [facility], [place] [id number] [place] [address] 47320- 8683 May, [facility], [place] [id number] [place] [address] 60323- 9173 May, Chronic constipation K59.09 [facility], [place] [address] [place] [address] 02582- 3361 Apr, [facility], [place] [id number] [place] [address] 52450- 8558 Apr, Major depressive disorder, recurrent, moderate F33.1 ; Anxiety disorder, unspecified F41.9 and 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 [facility], [place] [id number] [place] [address] 27623- 1674 Apr, [place] [address] [place] [address] 24286- 7879 Mar, Major depressive disorder, recurrent, moderate F33.1 [place] [id number] [place] [address] 45461- 0102 Mar, Major depressive disorder, recurrent, moderate F33.1 ; Generalized anxiety disorder F41.1 and Bipolar I disorder, most recent episode depressed with anxious distress F31.30 [place] [id number] [place] [address] 59881- 9013 Mar, Diabetes E11.9 ; Non morbid obesity due to excess calories E66.09 ; Breast cancer screening Z12.39 and Encounter for immunization Z23 [place] [address] [place] [address] 42176- 9525 Mar, Major depressive disorder, recurrent, moderate F33.1 ; Anxiety disorder, unspecified F41.9 and 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 [place] [address] [place] [address] 90684- 7029 Mar, [place] [id number] [place] [address] 60587- 2195 Feb, Major depressive disorder, recurrent, moderate F33.1 ; Anxiety disorder, unspecified F41.9 and 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 [place] [address] [place] [address] 48800- 5309 Feb, [place] [address] [place] [address] 95329- 7048 Feb, [place] [id number] [place] [address] 68098- 7535 Jan, Major depressive disorder, recurrent, moderate F33.1 ; Generalized anxiety disorder F41.1 and Bipolar disorder, current episode depressed, severe, without psychotic features F31.4 [place] [id number] [place] [address] 96953- 1338 Jan, Major depressive disorder, recurrent, moderate F33.1 ; Anxiety disorder, unspecified F41.9 and 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 [facility], [place] [address], [place] [address]- 8613 Jan, Bronchitis J40 [facility], [place] [address] [place] [address] 65264- 4714 Jan, [facility], [place] [id number] [place] [address] 27657- 3651 Jan, [place] [id number] [place] [address] 16045- 1183 Jan, Elbow injury, right, initial encounter S59.901A ; Multiple contusions T14.8 and Cervical strain, acute, initial encounter S16.1XXA [place] [address] [place] [address] 41079- 0082 Dec, Major depressive disorder, recurrent, moderate F33.1 ; Generalized anxiety disorder F41.1 and Bipolar disorder with depression F31.30 [place] [address] [place] [address] 75615- 0003 Dec, [facility], [place] [address] [place] [address] 31434- 0195 Dec, [facility], [place] [address], [place] [address]- 7051 Dec, [facility], [place] [address] [place] [address] 32631- 2513 Dec, [facility], [place] [address] [place] [address] 58890- 0286 Dec, Yeast infection B37.9 [facility], [place] [id number], [place] [address]- 7790 Dec, Pneumonia of both lungs due to methicillin resistant Staphylococcus aureus (MRSA), unspecified part of lung J15.212 and Benzodiazepine overdose, accidental or unintentional, subsequent encounter T42.4X1D [facility], [place] [id number] [place] [address] 93610- 1175 Dec, [facility], [place] [id number] [place] [address]- [address]3 Dec, [facility], [place] [address] [address] [id number]- 7723 Dec, Knee pain, left M25.562 and Edema, unspecified type R60.9 [facility], [place] [id number] [place] [address] 25182- 9486 Dec, [facility], [place] [id number] [place] [address] 26424- 1524 Dec, Anxiety disorder, unspecified F41.9 and Bipolar disorder, unspecified F31.9 [place] [address] 95480- 9093 Nov, Major depressive disorder, recurrent, moderate F33.1 ; Anxiety disorder, unspecified F41.9 and 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 [facility], [place] [id number] [place] [address] 68478- 6336 Nov, [facility], [place] [id number] [place] [address] 13199- 5741 Nov, Migraine without aura and without status migrainosus, not intractable G43.009 [facility], [place] [id number] [place] [address] 86441- 2808 Nov, Migraine G43.909 [facility], [place] [id number] [place] [address] 30888- 3721 Nov, [facility], [place] [address] 417400- 8261 Nov, Major depressive disorder, recurrent, moderate F33.1 ; Anxiety disorder, unspecified F41.9 and 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 [place] [address] [place] [address] 82751- 3393 Oct, Chronic constipation K59.09 and Obesity, unspecified obesity severity, unspecified obesity type E66.9 [place] [id number] [place] [address] 67022- 9150 Oct, Obesity, unspecified obesity severity, unspecified obesity type E66.9 ; Chronic constipation K59.09 and Anxiety disorder, unspecified F41.9 [place] [id number] [place] [address] 10913- 3401 Oct, [place] [id number] [place] [address] 64496- 5760 Sep, Diabetes E11.9 ; Edema, unspecified type R60.9 ; Varicose vein of leg I83.90 and Obesity, unspecified obesity severity, unspecified obesity type E66.9 [place] [id number] [place] [address] 94616- 5555 Sep, Edema, unspecified type R60.9 ; Diabetes E11.9 and Knee pain , left M25.562 [place] [id number] [place] [address] 68221- 5385 Sep, [place] [id number] [place] [address] 75828- 9223 Sep, [place] [id number] [place] [address] 17331- 8035 Sep, Major depressive disorder, recurrent, moderate F33.1 ; Generalized anxiety disorder F41.1 and Bipolar disorder, unspecified F31.9 [place] [id number] [place] [address] 40735- 8313 Aug, Chondromalacia of left knee M94.262 [place] [id number] [place] [address] 25820- 1816 Aug, Major depressive disorder, recurrent, moderate F33.1 ; Anxiety disorder, unspecified F41.9 and 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 [facility], [place] [id number], [place] [address]- 9354 15 Aug, 2015 [facility], [place] [id number] [place] [address] 35310728- 3299 06 Aug, 2015 Osteoarthritis of left knee M17.9 [facility], [place] [address] [place] [address] 91867- 8968 Aug, [facility], [place] [address] [place] [address] 82741- 7059 July, Major depressive disorder, recurrent, moderate F33.1 ; Anxiety disorder, unspecified F41.9 and 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 [facility], [place] [address], [place] [address]- 7159 July, [facility], [place] [id number] [place] [address] 78101- 7371 July, Chronic constipation K59.09 [facility], [place] [address] [place] [address] 16541- 4242 Jun, [facility], [place] [address] [place] [address] 30374- 6244 15 Jun, 2015 [facility], [place] [address], [place] [address]- 5484 14 Jun, 2015 Osteoarthritis of left knee M17.9 [facility], [place] [address], [place] [address]- 1372 Jun, [facility], [place] [id number], [place] [address]- 1344 13 Jun, 2015 Generalized anxiety disorder F41.1 ; Bipolar disorder, unspecified F31.9 and Major depressive disorder, recurrent, moderate F33.1 [facility], [place] [address], [place] [address]- 5058 07 Jun, 2015 Migraine G43.909 [facility], [place] [id number] [place] [address] Jun, Left knee pain M25.562 ; Chronic constipation K59.09 ; Dry mouth R68.2 ; Yeast vaginitis B37.3 and Memory loss R41.3 [facility] [id number] [place] [address] Jun, [place] [address] [address] May, [facility] [id number] [place] [address] May, [place] [place] [address] [address] May, [facility] [id number] [place] [address] May, [place] [address] [address] May, Acute bronchitis with COPD J44.0 ; Knee pain, left M25.562 and Encounter for tobacco use cessation counseling Z71.6 [facility] [id number] [place] [address] 81706- 7310 May, [facility] [id number] [place] [address] 40534- 5035 Apr, Diabetes E11.9 ; TMJ (sprain of temporomandibular joint) S03.4XXA ; Tobacco abuse Z72.0 ; Migraine G43.909 and Anxiety F41.9 [facility] [id number] [place] [address] 27549- 5306 Apr, Generalized anxiety disorder F41.1 and Bipolar disorder, unspecified F31.9 [facility] [id number] [place] [address] 86693- 7532 Apr, Major depressive disorder, recurrent, moderate F33.1 ; Anxiety disorder, unspecified F41.9 and 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 [facility], [place] [address], [place] [address] 07[address] Apr, [facility], [place] [id number] [place] [address] 58777- 7306 Mar, [facility], [place] [id number] [place] [address] 70867- 9302 Feb, [facility], [place] [id number] [place] [address] 27424- 9482 Feb, Major depressive disorder, recurrent, moderate F33.1 ; Anxiety disorder, unspecified F41.9 and 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 [facility], [place] [id number] [place] [address] 78000- 1076 Feb, [facility], [place] [id number] [place] [address] 22946- 6329 Feb, Generalized anxiety disorder F41.1 and Bipolar disorder, unspecified F31.9 [facility], [place] [id number] [place] [address] 00224- 5153 30 Jan, 2015 [facility], [place] [id number] [place] [address] 60291- 6820 18 Jan, 2015 [facility], [place] [id number] [place] [address] 00814- 8603 Jan, Bipolar disorder, unspecified F31.9 and Generalized anxiety disorder F41.1 [facility], [place] [address] [address] 1337 Dec, [facility], [place] [id number] [place] [address] 99272- 7218 14 Dec, 2014 Bipolar disorder, unspecified F31.9 and Generalized anxiety disorder F41.1 [facility], [place] [address], [place] [address]- 9952 13 Dec, 2014 Generalized anxiety disorder F41.1 and Major depressive disorder, recurrent, moderate F33.1 [facility], [place] [address], [place] [address]- 4767 Oct, Headache 784.0 ; Cough 786.2 ; Vomiting and diarrhea 787.03 and Dysuria 788.1 [facility], [place] [id number] [address]- 1554 Aug, [facility], [place] [id number] [place] [address] 42843- 1423 Aug, Headache 784.0 and Shortness of breath 786.05 [facility], [place] [id number] [place] [address] 40121- 8338 Aug, [facility], [place] [id number] [place] [address] 88509- 5495 Aug, Migraine 346.90 [facility], [place] [id number] [place] [address] 06085- 2211 Jun, [facility], [place] [id number] [place] [address] 23570- 0975 Jun, [facility], [place] [id number] [place] [address] 53523- 4752 May, [facility], [place] [id number] [place] [address] 11701- 8989 May, [facility], [place] [address], [place] [address]- 5465 May, [facility], [place] [id number] [place] [address] 74969- 9731 May, [facility], [place] [address], [place] [address]- 9635 May, [facility], [place] [id number] [place] [address] 224973- 7275 May, [facility], [place] [address] 0169 Apr, [facility], [place] [id number] [place] [address]- 2199 11 Apr, 2014 [facility] [place] [facility] [address] [id number] [place] [address]- 0788 Apr, 2014 [facility] [place] [facility] [address] [id number] [place] [address]- 0136 Apr, 2014 [facility] [place] [facility] [address] [id number] [place] [address]- 5946 Apr, 2014 [facility] [place] [facility] [address] [id number] [place] [address]- 5561 Mar, [facility] [place] [facility] [address] [id number] [place] [address]- 7820 Mar, [facility] [place] [facility] [address] [id number] [place] [address]- 1444 Mar, [facility] [place] [facility] [address] [id number] [place] [address]- 5378 Mar, [facility] [place] [facility] [address] [id number] [place] [address]- 2921 Feb, [facility] [place] [facility] [address] [id number] [place] [address]- 9871 Feb, [facility] [place] [facility] [address] [id number] [place] [address]- 9497 18 Feb, 2014 [facility] [place] [facility] [address] [id number] [place] [address]- 5262 18 Feb, 2014 [facility] [place] [facility] [address] [id number] [place] [address]- 0855 16 Feb, 2014 [facility] [place] [facility] [address] [id number] [place] 3599 16 Feb, 2014 [facility] [place] [facility] [address] [id number] [place] 0607 Feb, [facility] [place] [facility] [address] [id number] [place] [address]- 4873 Feb, [facility] [place] [facility] [address] [id number] [place] [address]- 4289 Feb, [facility] [place] [facility] [address] [id number] [place] [address]- 8444 Feb, [facility] [place] [facility] [address] [id number] [place] 3041 Feb, [facility] [place] [facility] [address] [id number] [place] [address]- 6270 Feb, [facility] [place] [facility] [address] [id number] [place] [address]- 6194 Jan, [facility] [place] [facility] [address] [id number] [place] [address]- 5123 Jan, [facility] [place] [facility] [address] [id number] [place] [address]- 5380 Dec, [facility] [place] [facility] [address] [id number] [place] [address]- 7921 Dec, [facility] [place] [facility] [address] [id number] [place] [address]- 5310 Dec, [facility] [place] [facility] [address] [id number] [place] [address]- 9402 Dec, [facility] [place] [facility] [address] [id number] [place] [address]- 8238 Dec, [facility] [place] [facility] [address] [id number], [place] [address]- 8865 Dec, [facility] [place] [facility] [address] [id number] [place] [address]- 8485 Sep, [facility] [place] [facility] [address] [id number] [place] [address]- 1821 Sep, [facility] [place] [facility] [address] [id number] [place] [address]- 4861 Sep, [facility] [place] [facility] [address] [id number] [place] [address]- 0136 Sep, 2013 [facility] [place] [facility] [address] [id number] [place] [address]- 1196 14 Sep, 2013 [facility] [place] [facility] [address] [id number] [place] [address]- 3056 14 Sep, 2013 [facility] [place] [facility] [address] [id number] [place] [address]- 5851 Sep, 2013 [facility] [place] [facility] [address] [id number] [place] [address]- 8728 Sep, 2013 [facility] [place] [facility] [address] [id number] [place] [address]- 4838 Sep, 2013 [facility] [place] [facility] [address] [id number] [place] [address]- 0920 Sep, 2013 [facility] [place] [facility] [address] [id number] [place] [address]- 6989 24 Aug, 2013 [facility] [place] [facility] [address] [id number] [place] [address]- 7800 Aug, [facility] [place] [facility] [address] [id number] [place] [address]- 2739 Aug, [facility] [place] [facility] [address] [id number] [place] [address]- 9122 17 Aug, 2013 [facility] [place] [facility] [address] [id number] [place] [address]- 0614 17 Aug, 2013 [facility] [place] [facility] [address] [id number] [place] [address]- 4386 14 Aug, 2013 [facility] [place] [facility] [address] [id number] [place] [address]- 4132 14 Aug, 2013 [facility] [place] [facility] [address] [id number] [place] [address]- 3586 Aug, [facility] [place] [facility] [address] [id number] [place] [address]- 0346 Aug, [facility] [place] [facility] [address] [id number] [place] [address]- 4916 Aug, [facility] [place] [facility] [address] [id number] [place] [address]- 9181 Aug, [facility] [place] [facility] [address] [id number] [place] [address]- 2751 Aug, [facility] [place] [facility] [address] [id number] [place] [address]- 2580 Aug, [facility] [place] [facility] [address] [id number] [place] [address]- 1284 July, [facility] [place] [facility] [address] [id number] [place] [address]- 1325 July, [facility] [place] [facility] [address] [id number] [place] [address]- 5981 July, [facility] [place] [facility] [address] [id number] [place] [address]- 8254 July, [facility] [place] [facility] [address] [id number] [place] [address]- 6469 July, [facility] [place] [facility] [address] [id number] [place] [address]- 3436 July, [facility] [place] [facility] [address] [id number] [place] [address]- 5435 July, [facility] [place] [facility] [address] [id number] [place] [address]- 1315 Jun, [facility] [place] [facility] [address] [id number] [place] [address]- 4530 Jun, [facility] [place] [facility] [address] [id number] [place] [address]- 5160 Jun, [facility] [place] [facility] [address] [id number] [place] [address]- 1603 16 Jun, 2013 [facility] [place] [facility] [address] [id number] [place] [address]- 6396 16 Jun, 2013 [facility] [place] [facility] [address] [id number] [place] 9751 08 Jun, 2013 [facility] [place] [facility] [address] [id number] [place] [address]- 7891 08 Jun, 2013 [facility] [place] [facility] [address] [id number] [place] [address]- 3436 17 May, 2013 [facility] [place] [facility] [address] [id number] [place] [address]- 5894 17 May, 2013 [facility] [place] [facility] [address] [id number] [place] [address]- 9303 14 May, 2013 [facility] [place] [facility] [address] [id number] [place] [address]- 9288 14 May, 2013 [facility] [place] [facility] [address] [id number] [place] [address]- 1716 13 May, 2013 [facility] [place] [facility] [address] [id number] [place] [address]- 1474 13 May, 2013 [facility] [place] [facility] [address] [id number] [place] [address]- 0118 10 May, 2013 [facility] [place] [facility] [address] [id number] [place] [address]- 4260 10 May, 2013 [facility] [place] [facility] [address] [id number] [place] [address]- 8957 07 May, 2013 [facility] [place] [facility] [address] [id number] [place] [address]- 0554 26 Apr, 2013 [facility] [place] [facility] [address] [id number] [place] [address]- 5670 26 Apr, 2013 [facility] [place] [facility] [address] [id number] [place] [address]- 4628 18 Apr, 2013 [facility] [place] [facility] [address] [id number] [place] [address]- 4212 15 Apr, 2013 [facility] [place] [facility] [address] [id number] [place] [address]- 9162 15 Apr, 2013 [facility] [place] [facility] [address] [id number] [place] [address]- 4539 Apr, [facility] [place] [facility] [address] [id number] [place] [address]- 7175 Apr, [facility] [place] [facility] [address] [id number] [place] [address]- 9040 Apr, [facility] [place] [facility] [address] [id number] [place] [address]- 4862 Apr, [facility] [place] [facility] [address] [id number] [place] [address]- 3953 Apr, [facility] [place] [facility] [address] [id number] [place] [address]- 6656 Mar, [facility] [place] [facility] [address] [id number] [place] [address]- 5380 Mar, [facility] [place] [facility] [address] [id number] [place] [address]- 7222 Mar, [facility] [place] [facility] [address] [id number] [place] [address]- 6946 Mar, [facility] [place] [facility] [address] [id number] [place] [address]- 2536 Mar, [facility] [place] [facility] [address] [id number] [place] [address]- 9876 Mar, [facility] [place] [facility] [address] [id number] [place] [address]- 7502 Mar, [facility] [place] [facility] [address] [id number] [place] [address]- 9240 Mar, [facility] [place] [facility] [address] [id number] [place] [address]- 7323 Feb, [facility] [place] [facility] [address] [id number], [place] [address]- 6401 Feb, [facility] [place] [facility] [address] [id number] [place] [address]- 9006 Jan, [facility] [place] [facility] [address] [id number] [place] [address]- 2098 Jan, [facility] [place] [facility] [address] [id number] [place] [address]- 4675 Jan, [facility] [place] [facility] [address] [id number], [place] [address]- 5759 Jan, [facility] [place] [facility] [address] [id number] [place] [address]- 8483 Jan, [facility] [place] [facility] [address] [id number] [place] [address]- 2676 Jan, [facility] [place] [facility] [address] [id number] [place] [address]- 7866 Jan, [facility] [place] [facility] [address] [id number] [place] [address]- 6080 Jan, [facility] [place] [facility] [address] [id number] [place] [address]- 3271 Dec, [facility] [place] [facility] [address] [id number] [place] [address]- 0650 Dec, [facility] [place] [facility] [address] [id number], [place] [address]- 0844 Dec, [facility] [place] [facility] [address] [id number], [place] [address]- 8652 20 Nov, 2012 [facility] [place] [facility] [address] [id number] [place] [address]- 3571 13 Nov, 2012 [facility] [place] [facility] [address] [id number] [place] [address]- 6869 12 Nov, 2012 [facility] [place] [facility] [address] [id number] [place] [address]- 4236 09 Nov, 2012 [facility] [place] [facility] [address] [id number] [place] [address]- 9985 Nov, [facility] [address] [id number] [place] [address]- 0429 Nov, [facility] [place] [facility] [address] [id number] [place] [address]- 5583 Oct, [facility] [address] [id number] [place] [address]- 8100 Oct, [facility] [place] [facility] [address] [id number] [place] [address]- 9683 Sep, [facility] [address] [id number] [place] [address]- 6082 Sep, [facility] [address] [id number] [place] [address]- 0085 Sep, [facility] [address] [id number] [place] [address]- 5917 Sep, [facility] [address] [id number] [place] [address]- 1562 Sep, [facility] [place] [facility] [address] [id number] [place] [address]- 7974 Sep, [facility] [address] [id number] [place] [address]- 6685 Sep, [facility] [place] [facility] [address] [id number] [place] [address]- 9348 Aug, [facility] [place] [facility] [address] [id number] [place] [address]- 2470 Aug, [facility] [place] [facility] [address] [id number] [place] [address]- 8015 Aug, [facility] [place] [facility] [address] [id number] [place] [address]- 0929 Aug, [facility] [place] [facility] [address] [id number] [place] [address]- 7268 Aug, [facility] [address] [id number] [place] [address]- 7029 Aug, [facility] [address] [id number] [place] [address]- 7525 July, [facility] [address] [id number] [place] [address]- 4535 July, [facility] [place] [facility] [address] [id number] [place] [address]- 9833 July, [facility] [address] [id number] [place] [address]- 2659 July, [facility] [address] [id number] [place] [address]- 6565 July, [facility] [address] [id number] [place] [address]- 7353 July, [facility] [address] [id number] [place] [address]- 9084 Jun, [facility] [place] [facility] [address] [id number] [place] [address]- 9061 Jun, [facility] [address] [id number] [place] [address]- 5032 Jun, [facility] [place] [facility] [address] [id number] [place] [address]- 9638 Jun, [facility] [place] [facility] [address] [id number], [place] [address]- 2081 Jun, [facility] [place] [facility] [address] [id number] [place] [address]- 8319 Jun, [facility] [place] [facility] [address] [id number] [place] [address]- 8259 Jun, [facility] [place] [facility] [address] [id number] [place] [address]- 9696 May, [facility] [place] [facility] [address] [id number], [place] [address]- 4666 May, [facility] [address] [id number] [place] [address]- 0226 Apr, 2012 [facility] [place] [facility] [address] [id number] [place] [address] 2546 Apr, 2012 [facility] [place] [facility] [address] [facility] [id number] [place] [address] 2546 Apr, 2012 [facility] [place] [facility] [address] [id number] [place] [address] 2546 Apr, 2012 [facility] [address] [id number] [place] [address]- 2936 Apr, [facility] [place] [facility] [address] [facility] [id number] [place] [address] 2546 08 Apr, 2012 [facility] [place] [facility] [address] [id number] [place] [address] 07 Apr, 2012 [facility] [place] [facility] [address] [facility] [id number] [place] [address] 07 Apr, 2012 [facility] [place] [facility] [address] [id number] [place] [address] 06 Apr, 2012 [facility] [place] [facility] [address] [id number] [place] [address] Apr, [facility] [place] [facility] [address] [facility] [id number] [place] [address] 2544 Apr, [facility] [place] [facility] [address] [facility] [id number] [place] [address] 2544 Mar, [facility] [place] [facility] [address] [facility] [id number] [place] [address] 2546 Mar, [facility] [place] [facility] [address] [facility] [id number] [place] [address] 2546 Mar, [facility] [place] [facility] [address] [facility] [id number] [place] [address] Mar, [facility] [address] [id number] [place] [address] Mar, [facility] [address] [id number] [place] [address] Mar, [facility] [address] [id number] [place] [address] 15 Mar, 2012 [facility] [place] [facility] [address] [id number] [place] [address] 67[address] 15 Mar, 2012 [facility] [address] [id number] [place] [address] Mar, [facility] [address] [id number] [place] [address] Mar, [facility] [address] [id number] [place] [address] Mar, [facility] [address] [id number] [place] [address] 95[address] Mar, [facility] [address] [id number] [place] [address] 69[address] Mar, [facility] [address] [id number] [place] [address] Feb, [facility] [place] [facility] [address] [id number], [place] [address] Feb, [facility] [place] [facility] [address] [id number], [place] [address] Feb, [facility] [place] [facility] [address] [id number] [place] [address] Feb, [facility] [place] [facility] [address] [id number] [place] [address] 50[address] Feb, [facility] [place] [facility] [address] [id number] [place] [address] Feb, [facility] [place] [facility] [address] [id number] [place] [address] Feb, [facility] [place] [facility] [address] [id number] [place] [address] 0636 Feb, [facility] [place] [facility] [address] [id number] [place] [address] 8206 Feb, [facility] [place] [facility] [address] [id number] [place] [address] 9[address] Feb, [facility] [place] [facility] [address] [id number] [place] [address] 4406 Feb, [facility] [place] [facility] [address] [id number] [place] [address] 9426 Feb, [facility] [place] [facility] [address] [id number] [place] [address]- 9814 Feb, [facility] [place] [facility] [address] [id number] [place] [address] 2591 Feb, [facility] [place] [facility] [address] [id number] [place] [address] 69[address] Feb, [facility] [place] [facility] [address] [id number] [place] [address] Jan, [facility] [place] [facility] [address] [facility] [id number] [place] [address] Jan, [facility] [place] [facility] [address] [id number] [place] [address]- [address]252 Jan, [facility] [place] [facility] [address] [id number] [place] [address]157 Jan, [facility] [place] [facility] [address] [id number] [place] [address]- [address]252 Dec, [facility] [place] [facility] [address] [id number] [place] [address]- 1455 Dec, [facility] [place] [facility] [address] [id number], [place] [address] Dec, [facility] [place] [facility] [address] [id number] [place] [address]- [address] Dec, [facility] [place] [facility] [address] [id number] [place] [address]- 9183 Dec, [facility] [place] [facility] [address] [id number] [place] [address]38 Dec, [facility] [place] [facility] [address] [id number] [place] [address]- 1630 Dec, [facility] [place] [facility] [address] [id number] [place] [address]- [address] 16 Dec, 2011 [facility] [place] [facility] [address] [id number] [place] [address]- 3530 Dec, [facility] [place] [facility] [address] [id number] [place] [address]- [address] 04 Dec, 2011 [facility] [place] [facility] [address] [id number] [place] [address]- [address] 03 Dec, 2011 [facility] [place] [facility] [address] [id number] [place] [address]- 7558 25 Sep2011 [facility] [place] [facility] [address] [id number] [place] [address]- 4442 24 Sep2011 [facility] [place] [facility] [address] [id number] [place] [address]- [address]487 20 Sep, 2011 [facility] [place] [facility] [address] [id number] [place] [address]- 9840 19 Sep, 2011 [facility] [place] [facility] [address] [id number] [place] [address]- 2991 17 Sep, 2011 [facility] [place] [facility] [address] [id number] [place] [address]- [address]143 16 Sep, 2011 [facility] [place] [facility] [address] [id number] [place] [address]- 1546 14 Sep, 2011 [facility] [place] [facility] [address] [id number] [place] [address]- 8542 13 Nov, 2011 [facility] [place] [facility] [address] [id number] [place] [address]- 0916 12 Nov, 2011 [facility] [place] [facility] [address] [id number] [place] [address]- 0906 07 Nov, 2011 [facility] [place] [facility] [address] [id number] [place] [address]- 1106 06 Nov, 2011 [facility] [place] [facility] [address] [id number] [place] [address]- [address]238 06 Nov, 2011 [facility] [place] [facility] [address] [id number] [place] [address]- 4540 05 Nov, 2011 [facility] [place] [facility] [address] [id number] [place] [address]- 4[address] 29 Oct, 2011 [facility] [place] [facility] [address] [id number] [place] [address]- 3383 Oct, [facility] [place] [facility] [address] [id number] [place] [address]- 7932 Oct, [facility] [place] [facility] [address] [id number] [place] [address]- 0229 Oct, [facility] [facility] [address] [id number] [place] [address] Oct, [facility] [place] [facility] [address] [id number] [place] [address] Oct, [facility] [place] [facility] [address] [id number] [place] [address] Oct, [facility] [place] [facility] [address] [id number] [place] [address] 16 Oct, 2011 [facility] [place] [facility] [address] [id number] [place] [address] 15 Oct, 2011 [facility] [place] [facility] [address] [id number] [place] [address] 13 Oct, 2011 [facility] [place] [facility] [address] [id number] [place] [address] Oct, [facility] [address] [id number] [place] [address] Sep, [facility] [address] [id number] [place] [address] Sep, [facility] [address] [id number] [place] [address] Sep, [facility] [address] [id number] [place] [address] Sep, [facility] [address] [id number] [place] [address] Sep, [facility] [address] [id number] [place] [address] Sep, [facility] [address] [id number] [place] [address] Aug, [facility] [address] [id number] [place] [address] July, [facility] [address] [id number] [place] [address] July, [facility] [address] [id number] [place] [address] Jun, [facility] [address] [id number] [place] [address] Jun, [facility] [address] [id number] [place] [address] Jun, [facility] [place] [facility] [address] [id number] [place] [address] Jun, [facility] [facility] [address] [id number] [place] [address] Jun, [facility] [address] [id number] [place] [address] Jun, [facility] [address] [id number] [place] [address] 09 Jun, 2011 [facility] [address] [id number] [place] [address] 08 Jun, 2011 [facility] [place] [address] [id number] [place] [address] Jun, [facility] [place] [facility] [address] [id number] [place] [address] Jun, [facility] [place] [address] [id number] [place] [address] Jun, [facility] [place] [address] [id number] [place] [address] 19 May, 2011 [facility] [place] [facility] [address] [id number] [place] [address] 16 May, 2011 [facility] [address] [id number] [place] [address] 14 May, 2011 [facility] [address] [id number] [place] [address] 288[address] 06 May, 2011 [facility] [address] [id number] [place] [address] 28 Apr, 2011 [facility] [address] [id number] [place] [address] Apr, [facility] [address] [id number] [place] [address] 35[address] 27 Apr, 2011 [facility] [address] [id number] [place] [address] Apr, [facility] [place] [address] [id number] [place] [address] 23 Apr, 2011 [facility] [place] [address] [id number] [place] [address] 22 Apr, 2011 [facility] [facility] [address] [id number] [place] [address] Apr, [facility] [address] [id number] [place] [address] Apr, [facility] [address] [id number] [place] [address] Mar, [facility] [address] [id number] [place] [address] Mar, [facility] [address] [id number] [place] [address] Mar, [facility] [address] [id number] [place] [address] Mar, [facility] [address] [id number] [place] [address] Mar, [facility] [address] [id number] [place] [address] Mar, [facility] [address] [id number] [place] [address] 14[address] Mar, [facility] [address] [id number] [place] [address] Mar, [facility] [address] [id number] [place] [address] Mar, [facility] [address] [id number] [place] [address] Mar, [facility] [address] [id number] [place] [address] Mar, [facility] [address] [id number] [place] [address] Mar, [facility] [address] [id number] [place] [address] Mar, [facility] [address] [id number] [place] [address] 39[address] Mar, [facility] [place] [address] [id number] [place] [address] 47[address] Mar, [facility] [place] [address] [id number] [place] [address] 28[address] Mar, [facility] [address] [id number] [place] [address] Feb, [facility] [address] [id number] [place] [address]378 Feb, [facility] [address] [id number] [place] [address] 6461 Feb, [facility] [address] [id number] [place] [address] Jan, [facility] [address] [id number] [place] [address] Jan, [facility] [address] [id number] [place] [address]- 8[address] Jan, [facility] [address] [id number] [place] [address] Dec, [facility] [address] [id number] [place] [address] 9831 Dec, [facility] [address] [id number] [place] [address] 15[address] Nov, [facility] [address] [id number] [address] Oct, [facility] [address] [id number] [place] [address]- [address] Oct, [facility] [address] [id number] [place] [address]- 7828 Oct, [facility] [address] [id number], [place] [address] Sep, [facility] [address] [id number], [place] [address] Apr, [facility] [place] [address] [facility] [id number] [place] [address] Feb, [facility] [place] [address] [facility] [id number], [place] [address] Jan, IMMUNIZATIONS No Known Immunizations SOCIAL HISTORY Never Assessed REASON FOR VISIT Referral request PLAN OF CARE VITAL SIGNS MEDICATIONS Unknown Medications RESULTS No Results PROCEDURES No Known procedures INSTRUCTIONS MEDICATIONS ADMINISTERED No Known Medications MEDICAL (GENERAL) HISTORY Type Description Date Medical History COPD Medical History asthma Medical History heart cath Medical History Social phobia Medical History MRSA in right lung Medical History diabetes Surgical History heart cath 03/2015 Hospitalization History for surgeries Hospitalization History AMS 2/2 Benzos OD, pneumonia MRSA, [facility], Hypokalemia-- [facility] 12/20/2015 Hospitalization History COPD exacerbation, Asthma-[facility] 09/21/16 Hospitalization History COPD-[facility] 12/30/2016 Hospitalization History OS and [facility] for inpatient-last around 2006 or so. Hospitalization History for COPD x2 Mar 2017 Hospitalization History Upper GI bleed at apr 2017
[2017-06-13 18:39] VITALS: BP 147/56
[2017-06-13 20:00] VITALS: BP 133/74
[2017-06-13] MEDS ORDERED: RT-ALBUTEROL/IPRATROPIUM 3 ML (DUONEB) VIAL INH PRN (20:15)
[2017-06-13] MEDS: RT-ALBUTEROL/IPRATROPIUM 3 ML (DUONEB) VIAL INH SCH (21:27)
[2017-06-13] MEDS: SUCRALFATE 1 GM (CARAFATE) TAB PO SCH (21:53)
[2017-06-13] MEDS: methylPREDNISolone 40 MG/ML (Solu-MEDROL) VIAL IV SCH (21:53)
[2017-06-13] MEDS: GABAPENTIN 300 MG (NEURONTIN) CAP PO SCH (21:53)
[2017-06-13] MEDS: PANTOPRAZOLE 40 MG (PROTONIX) TAB PO SCH (21:53)
[2017-06-13] MEDS: meTOprolol TARTRATE 25 MG (LOPRESSOR) TABLET PO SCH (21:53)
[2017-06-13] MEDS: NS W/KCL 20 MEQ/L 1,000 ML IV SCH (21:56)
[2017-06-13 23:30] VITALS: BP 123/67
[2017-06-13] MEDS: inSUlin (REGULAR) HUMAN 1 UNIT/0.01 ML (CHARGE PER UNIT) SC SCH (23:41)
[2017-06-13] MEDS ORDERED: inSUlin ASPART (NovoLOG) 1 UNIT/0.01 ML (CHARGE PER UNIT) SC ONE (23:45)
[2017-06-14] VITALS (7 sets, daily range): BP systolic 108–146; BP diastolic 62–94
[2017-06-14] MEDS: RT-ALBUTEROL/IPRATROPIUM 3 ML (DUONEB) VIAL INH SCH ×6 (01:41→22:42)
[2017-06-14] MEDS: methylPREDNISolone 40 MG/ML (Solu-MEDROL) VIAL IV SCH ×4 (04:09→22:42)
[2017-06-14 04:11] LABS: BASOPHILS % (AUTO) 0 % (0-10); EOSINOPHILS % (AUTO) 0 % (0-10); HEMATOCRIT 33 % (35-52); HEMOGLOBIN 10.5 G/DL (11.5-16.0); LYMPHOCYTES # (AUTO) 0.9 X 10^3 (1.0-4.0); LYMPHOCYTES % (AUTO) 10 % (12-44); MEAN CORPUSCULAR HEMOGLOBIN 27 PG (25-34); MEAN CORPUSCULAR HGB CONC 32 G/DL (32-36); MEAN CORPUSCULAR VOLUME 85 FL (80-99); MEAN PLATELET VOLUME 10.3 FL (7.4-10.4); MONOCYTES # (AUTO) 0.1 X 10^3 (0.0-1.0); MONOCYTES % (AUTO) 1 % (0-12); NEUTROPHILS # (AUTO) 8.5 X 10^3 (1.8-7.8); NEUTROPHILS % (AUTO) 89 % (42-75); PLATELET COUNT 295 10^3/uL (130-400); RED BLOOD COUNT 3.89 10^6/uL (4.35-5.85); RED CELL DISTRIBUTION WIDTH 14.2 % (10.0-14.5); WHITE BLOOD COUNT 9.5 10^3/uL (4.3-11.0)
[2017-06-14 04:38] LABS: BUN/CREATININE RATIO 10; CARBON DIOXIDE 24 MMOL/L (21-32); CHLORIDE 107 MMOL/L (98-107); CREATININE SERUM 0.72 MG/DL (0.60-1.30); GFR ESTIMATED > 60; GLUCOSE 145 MG/DL (70-105); POTASSIUM 3.9 MMOL/L (3.6-5.0); SODIUM 139 MMOL/L (135-145)
[2017-06-14 05:29] LABS: BAND NEUTROPHILS 1 %; LYMPHOCYTES % (MANUAL) 8 %; MONOCYTES % (MANUAL) 1 %; NEUTROPHILS % (MANUAL) 90 %; RBC MORPH NORMAL
[2017-06-14] MEDS: inSUlin (REGULAR) HUMAN 1 UNIT/0.01 ML (CHARGE PER UNIT) SC SCH ×2 (05:41→13:08)
[2017-06-14] MEDS: SUCRALFATE 1 GM (CARAFATE) TAB PO SCH ×4 (06:23→20:46)
[2017-06-14] MEDS: GABAPENTIN 300 MG (NEURONTIN) CAP PO SCH ×3 (10:14→20:46)
[2017-06-14] MEDS: ARIPIPRAZOLE 15 MG (ABILIFY) TAB PO SCH (10:14)
[2017-06-14] MEDS: PANTOPRAZOLE 40 MG (PROTONIX) TAB PO SCH ×2 (10:15→20:46)
[2017-06-14] MEDS: meTOprolol TARTRATE 25 MG (LOPRESSOR) TABLET PO SCH ×2 (10:15→20:46)
[2017-06-14] MEDS: MULTIVIT W/MINERALS TAB (THERAGRAN M) PO SCH (10:15)
[2017-06-14] MEDS: ONDANSETRON 4 MG/2 ML (SDV) Z0FRAN IV PRN (10:56)
[2017-06-14] MEDS: NS W/KCL 20 MEQ/L 1,000 ML IV SCH (10:56)
[2017-06-14] MEDS: FAMOTIDINE 20MG/2ML IV (PEPCID) IVP SCH ×2 (13:08→20:46)
[2017-06-14] MEDS: hydrOXYzine (VISTARIL) 25 MG CAP PO PRN ×2 (13:08→20:46)
--- NOTE | 2017-06-14 13:28 | History & Physicial (CHS) ---
HPI History of Present Illness: This is a 52 yo female with known COPD w/ multiple prior admissions for acute on chronic respiratory failure. Pt reports Thursday she had onset of increasing SOA, scant sputum production and continued to worsen. Pt uses 2L oxygen at home. Pt continues to smoke. Pt denies fever/chills. Pt has chronic TANG and anxiety. Date seen by provider: Jun 14, 2017 Time Seen by Provider: 06:20 Attending Physician Connor Johnston DO [facility] Consult Date of Admission Jun 13, 2017 at 16:08 Home Medications Home Medications Reviewed patient Home Medication Reconciliation performed by pharmacy medication reconciliations flight data technician and/or nursing. Patients Allergies have been reviewed. Allergies Coded Allergies: buspirone (Verified Allergy, Mild, 05/02/17) Made"legs Shaky" amitriptyline (Verified Allergy, Unknown, 05/02/17) " MAKES ME DO WEIRD THINGS LIKE WALK IN MY SLEEP AND HAVE HALLUCINATIONS." OIA-Kstoai-Gwqrkx Hx Patient Social History Alcohol Use: Denies Use Recreational Drug Use: No (4 YRS AGO) Drug of Choice: +IV METH past hx Type Used: Cigarettes 2nd Hand Smoke Exposure: Yes Recent Foreign Travel: No Contact w/other who traveled: No Recent Hopitalizations: Yes Recent Infectious Disease Expo: No Physical Abuse Screen: No Sexual Abuse: No Immunizations Up To Date Tetanus Booster (TDap): Unknown Date of Pneumonia Vaccine: Dec 08, 2011 Date of Influenza Vaccine: Dec 31, 2016 Past Medical History Past Medical History 1. HTN 2. COPD 3. Tobaccoism 4.Chronic Migraines- with rebound headaches secondary to overuse of tylenol and ibuprofen 5. Anxiety 6. Depression 7. Endometrial hypertrophy 8. DM- II, pt. stopped taking her medications 9. HLP- with elevated triglycerides 10. Chronic Insomnia 11. Gastritis 12. Methamphetamine abuse with most recent drug screen in clinic 09/19 positive for methamphetamine 13. Several admissions for overdose of benzodiazapine Past Surgical History 1. EGD- Gastritis Loja 2. Colonoscopy- Loja Family Medical History Significant Family History: Heart Disease, Cancer Family History: Cancer 03 MOTHER, Onset:66 (LUNG ) 09 BROTHER (LUNG ) Congestive heart failure 03 FATHER Review of Systems ([facility]) Constitutional: No chills, No fever Respiratory: see HPI Cardiovascular: no symptoms reported Gastrointestinal: nausea Psychiatric/Neurological: Anxiety Reviewed Test Results Reviewed Test Results Lab Laboratory Tests 06/13/17 15:07: White Blood Count 11.0, Red Blood Count 4.37, Hemoglobin 11.8, Hematocrit 37, Mean Corpuscular Volume 84, Mean Corpuscular Hemoglobin 27, Mean Corpuscular Hemoglobin Concent 32, Red Cell Distribution Width 14.5, Platelet Count 325, Mean Platelet Volume 9.9, Neutrophils (%) (Auto) 70, Lymphocytes (%) (Auto) 20, Monocytes (%) (Auto) 9, Eosinophils (%) (Auto) 1, Basophils (%) (Auto) 0, Neutrophils # (Auto) 7.7, Lymphocytes # (Auto) 2.2, Monocytes # (Auto) 0.9, Eosinophils # (Auto) 0.1, Basophils # (Auto) 0.0, Sodium Level 141, Potassium Level 3.2L, Chloride Level 105, Carbon Dioxide Level 23, Anion Gap 13, Blood Urea Nitrogen 4L, Creatinine 0.79, Estimat Glomerular Filtration Rate > 60, BUN/ Creatinine Ratio 5, Glucose Level 169H, Calcium Level 9.2, Total Bilirubin 0.4, Aspartate Amino Transf (AST/SGOT) 14, Alanine Aminotransferase (ALT/SGPT) 22, Alkaline Phosphatase 86, Total Protein 6.5, Albumin 3.9 06/13/17 23:31: Glucometer 570*H 06/14/17 03:50: White Blood Count 9.5, Red Blood Count 3.89L, Hemoglobin 10.5L, Hematocrit 33L, Mean Corpuscular Volume 85, Mean Corpuscular Hemoglobin 27, Mean Corpuscular Hemoglobin Concent 32, Red Cell Distribution Width 14.2, Platelet Count 295, Mean Platelet Volume 10.3, Neutrophils (%) (Auto) 89H, Lymphocytes (%) (Auto) 10L, Monocytes (%) (Auto) 1, Eosinophils (%) (Auto) 0, Basophils (%) (Auto) 0, Neutrophils # (Auto) 8.5H, Lymphocytes # (Auto) 0.9L, Monocytes # (Auto) 0.1, Eosinophils # (Auto) 0.0, Basophils # (Auto) 0.0, Sodium Level 139, Potassium Level 3.9, Chloride Level 107, Carbon Dioxide Level 24, Anion Gap 8, Blood Urea Nitrogen 7, Creatinine 0.72, Estimat Glomerular Filtration Rate > 60, BUN/ Creatinine Ratio 10, Glucose Level 145H, Calcium Level 9.0, Neutrophils % ( Manual) 90, Lymphocytes % (Manual) 8, Monocytes % (Manual) 1, Band Neutrophils 1 , Blood Morphology Comment NORMAL 06/14/17 12:24: Glucometer 345H Radiology Date of Exam: 06/13/17 CHEST 1 VIEW, AP/PA ONLY Portable erect AP chest at 3:16 p.m. INDICATION: Shortness of breath. FINDINGS: The cardiomegaly and the scar formation in the left lung base seen on the prior exam of 05/23/2017 are again evident and no different. In the interval since the prior study, however, mild blunting of the left costophrenic angle has developed. This does suggest that there may be a small amount of pleural fluid in this area. The lungs are otherwise generally clear. The mediastinum is not widened. The osseous structures are intact. IMPRESSION: There appears to be a small amount of fluid now present in the left lung base. The overall appearance of the chest has not changed significantly otherwise. Clinical followup is recommended. Physical Exam-([facility]) Physical Exam Vital Signs VS - Last 72 Hours, by Label 06/13/17 06/13/17 06/13/17 06/13/17 15:04 15:23 16:16 16:29 Temp 97.8 Pulse 116 114 Resp 26 30 B/P (MAP) Pulse Ox 98 100 99 O2 Delivery Nasal Cannula Nasal Cannula Nasal Cannula O2 Flow Rate 2.00 2.00 06/13/17 06/13/17 06/13/17 06/13/17 17:46 18:14 18:19 18:39 Pulse 109 106 Resp 20 B/P (MAP) 117/81 Pulse Ox 98 98 96 95 O2 Delivery NIV Bilevel Vapotherm Vapotherm O2 Flow Rate 8.00 8.00 FiO2 40 40 06/13/17 06/13/17 06/13/17 06/13/17 18:39 19:00 20:00 20:00 Temp 98.8 Pulse 106 121 Resp 23 B/P (MAP) 133/74 (93) Pulse Ox 95 98 O2 Delivery Vapotherm Vapotherm Vapotherm O2 Flow Rate 15.00 50.00 15.00 15.00 FiO2 50 50 06/13/17 06/13/17 06/13/17 06/13/17 21:00 21:27 21:31 23:30 Pulse Ox 99 99 97 O2 Delivery Vapotherm Vapotherm Vapotherm Vapotherm O2 Flow Rate 15.00 15.00 40.00 15.00 15.00 FiO2 50 50 40 06/13/17 06/13/17 06/14/17 06/14/17 23:30 23:35 01:00 01:41 Temp 98.1 Pulse 103 101 Resp 22 B/P (MAP) 123/67 (85) Pulse Ox 97 96 97 O2 Delivery Vapotherm Vapotherm Vapotherm O2 Flow Rate 40.00 15.00 15.00 15.00 FiO2 40 40 06/14/17 06/14/17 06/14/17 06/14/17 03:45 03:45 07:00 07:12 Temp 97.7 Pulse 94 99 Resp 21 B/P (MAP) 128/82 (97) Pulse Ox 96 96 96 O2 Delivery Vapotherm Vapotherm Vapotherm O2 Flow Rate 13.00 40.00 13.00 13.00 FiO2 40 35 06/14/17 10:40 Pulse Ox 97 O2 Delivery Vapotherm O2 Flow Rate 13.00 FiO2 35 Capillary Refill : Less Than 3 Seconds General Appearance: WD/WN, no apparent distress Respiratory: decreased breath sounds, wheezing Cardiovascular: regular rate, rhythm Gastrointestinal: non tender, soft Neurologic/Psychiatric: alert, oriented x 3 Skin: normal color, warm/dry Assessment/Plan Assessment/Plan Admission Dx 1. COPD w/ acute exacerbation 2. Acute on chronic respiratory failure w/ hypoxia Admission Status: Inpatient Order (span 2 midnights) Reason for Inpatient Admission: Acute on chronic respiratory failure requiring high flow oxygen supplementation Assessment & Plan 1. COPD w/ acute exacerbation - no evidence of infection at this time - MAT protocol, Solu-medrol - decrease to 40mg IV q6h - currently on 13L vapotherm 2. Acute on chronic respiratory failure w/ hypoxia 3. DM Type 2 - resume home medications; SSI Novolog high dose 4. Anxiety - hydroxyzine for anxiety 5. Chronic TANG - tylenol prn Clinical Quality Measures DVT/VTE Risk/Contraindication: Risk Factor Score Per Nursin RFS Level Per Nursing on Admit: 4+=Very High CONNOR JOHNSTON DO Jun 14, 2017 13:28
[2017-06-14] MEDS: ACETAMINOPHEN 500 MG TAB (TYLENOL) PO PRN (14:21)
[2017-06-14] MEDS: inSUlin ASPART (NovoLOG) 1 UNIT/0.01 ML (CHARGE PER UNIT) SC SCH ×2 (14:30→20:46)
[2017-06-14] MEDS: ENOXAPARIN 40 MG/0.4 ML (LOVENOX) SYR SQ SCH (18:28)
[2017-06-15 00:15] VITALS: BP 112/67
[2017-06-15] MEDS: NS W/KCL 20 MEQ/L 1,000 ML IV SCH ×2 (00:17→14:59)
[2017-06-15] MEDS: RT-ALBUTEROL/IPRATROPIUM 3 ML (DUONEB) VIAL INH SCH ×6 (01:53→21:47)
[2017-06-15 03:55] VITALS: BP 121/84
[2017-06-15] MEDS: methylPREDNISolone 40 MG/ML (Solu-MEDROL) VIAL IV SCH ×2 (04:03→11:21)
[2017-06-15] MEDS: inSUlin ASPART (NovoLOG) 1 UNIT/0.01 ML (CHARGE PER UNIT) SC SCH ×4 (06:35→20:28)
[2017-06-15] MEDS: SUCRALFATE 1 GM (CARAFATE) TAB PO SCH ×4 (06:35→20:23)
[2017-06-15 07:59] VITALS: BP 121/84
[2017-06-15] MEDS: MULTIVIT W/MINERALS TAB (THERAGRAN M) PO SCH (09:08)
[2017-06-15] MEDS: ARIPIPRAZOLE 15 MG (ABILIFY) TAB PO SCH (09:08)
[2017-06-15] MEDS: PANTOPRAZOLE 40 MG (PROTONIX) TAB PO SCH ×2 (09:09→20:23)
[2017-06-15] MEDS: FAMOTIDINE 20MG/2ML IV (PEPCID) IVP SCH (09:09)
[2017-06-15] MEDS: meTOprolol TARTRATE 25 MG (LOPRESSOR) TABLET PO SCH ×2 (09:09→20:23)
[2017-06-15] MEDS: GABAPENTIN 300 MG (NEURONTIN) CAP PO SCH ×3 (09:09→20:23)
[2017-06-15] MEDS: hydrOXYzine (VISTARIL) 25 MG CAP PO PRN ×3 (09:12→17:11)
[2017-06-15] MEDS: ACETAMINOPHEN 500 MG TAB (TYLENOL) PO PRN ×2 (09:13→16:09)
[2017-06-15 12:00] VITALS: BP 139/92
[2017-06-15] MEDS: ENOXAPARIN 40 MG/0.4 ML (LOVENOX) SYR SQ SCH (14:59)
[2017-06-15] MEDS: GLIMEPIRIDE 1 MG (AMARYL) TAB PO PRN (15:00)
--- NOTE | 2017-06-15 16:06 | Progress Note (SOAP) ---
Subjective Subjective/Events-last exam Patient comfortable this AM. Complaining of constant headache that improves with nothing. States that her breathing is improving but she gets very short of breath with minimal activity. Tolerating PO diet. BM yesterday. Review of Systems Date Seen by Provider: Jun 15, 2017 Time Seen by Provider: 09:40 Objective Exam Last Set of Vital Signs Vital Signs Date Time Temp Pulse Resp B/P (MAP) Pulse Ox O2 Delivery O2 Flow Rate FiO2 06/15/17 14:32 High Flow N/C 4.00 06/15/17 14:30 98 06/15/17 12:00 97.3 80 20 139/92 (108) 06/15/17 10:33 35 Capillary Refill : Less Than 3 Seconds I&O Intake and Output 06/15/17 00:00 Intake Total 4175 ml Output Total 4600 ml Balance -425 ml Intake Oral 4175 ml Output Urine Total 4600 ml # Bowel Movements 3 General: Alert, Oriented X3, Cooperative, Mild Distress (with minimal exertion) HEENT: Mucous Memb Moist/[place] Lungs: Other (diffuse wheezing in all lung shay, no crackles) Heart: Regular Rate, No Murmurs Abdomen: Soft, No Tenderness, No Hepatosplenomegaly, No Masses Extremities: No Edema, No Tenderness/Swelling Neuro: Normal Speech, Sensation Intact, Cranial Nerves 3-12 NL Psych/Mental Status: Mental Status NL, Mood NL Results/Procedures Lab Laboratory Tests 06/14/17 20:31: Glucometer 281H 06/15/17 06:31: Glucometer 314H 06/15/17 08:31: Glucometer 317H 06/15/17 14:41: Glucometer 263H Radiology Date of Exam: 06/13/17 CHEST 1 VIEW, AP/PA ONLY Portable erect AP chest at 3:16 p.m. INDICATION: Shortness of breath. FINDINGS: The cardiomegaly and the scar formation in the left lung base seen on the prior exam of 05/23/2017 are again evident and no different. In the interval since the prior study, however, mild blunting of the left costophrenic angle has developed. This does suggest that there may be a small amount of pleural fluid in this area. The lungs are otherwise generally clear. The mediastinum is not widened. The osseous structures are intact. IMPRESSION: There appears to be a small amount of fluid now present in the left lung base. The overall appearance of the chest has not changed significantly otherwise. Clinical followup is recommended. Assessment/Plan Assessment/Plan Admission Status: Inpatient Order (span 2 midnights) Reason for Inpatient Admission: continues to require increase oxygen supplementation Assessment & Plan 1. COPD w/ acute exacerbation - no evidence of infection at this time - MAT protocol, Solu-medrol - decrease to 40mg IV q6h - currently on 13L vapotherm 06/15: Continuing to titrate as tolerated, discussed the importance of cessation, patient is not ready to quit smoking 2. Acute on chronic respiratory failure w/ hypoxia 3. DM Type 2 - resume home medications; SSI Novolog high dose 4. Anxiety - hydroxyzine for anxiety 5. Chronic TANG - tylenol prn 6. Tobacco Abuse - Discussed the importance of cessation 7. DVT PPX: Lovenox 8. Dispo: Patient plans to return home after d/c, continues to needs increased oxygen supplementation Clinical Quality Measures DVT/VTE Risk/Contraindication: Risk Factor Score Per Nursin RFS Level Per Nursing on Admit: 4+=Very High TIMOTHY LARIOS MD Jun 15, 2017 16:05
[2017-06-15 16:15] VITALS: BP 157/81
[2017-06-15] MEDS: ONDANSETRON 4 MG/2 ML (SDV) Z0FRAN IV PRN (16:28)
[2017-06-15] MEDS: NICOTINE 21 MG (NICODERM) PATCH TD SCH (17:07)
[2017-06-15 19:45] VITALS: BP 129/73
[2017-06-15] MEDS: FAMOTIDINE 20 MG (PEPCID) TABLET PO SCH (20:23)
[2017-06-16] VITALS (7 sets, daily range): BP systolic 112–141; BP diastolic 63–90
[2017-06-16] MEDS: RT-ALBUTEROL/IPRATROPIUM 3 ML (DUONEB) VIAL INH SCH ×6 (02:50→21:41)
[2017-06-16] MEDS: NS W/KCL 20 MEQ/L 1,000 ML IV SCH (03:19)
[2017-06-16 06:27] LABS: BASOPHILS % (AUTO) 0 % (0-10); EOSINOPHILS % (AUTO) 0 % (0-10); HEMATOCRIT 30 % (35-52); HEMOGLOBIN 9.4 G/DL (11.5-16.0); LYMPHOCYTES # (AUTO) 2.4 X 10^3 (1.0-4.0); LYMPHOCYTES % (AUTO) 20 % (12-44); MEAN CORPUSCULAR HEMOGLOBIN 27 PG (25-34); MEAN CORPUSCULAR HGB CONC 31 G/DL (32-36); MEAN CORPUSCULAR VOLUME 87 FL (80-99); MEAN PLATELET VOLUME 10.5 FL (7.4-10.4); MONOCYTES # (AUTO) 0.9 X 10^3 (0.0-1.0); MONOCYTES % (AUTO) 7 % (0-12); NEUTROPHILS % (AUTO) 73 % (42-75); PLATELET COUNT 233 10^3/uL (130-400); RED BLOOD COUNT 3.48 10^6/uL (4.35-5.85); RED CELL DISTRIBUTION WIDTH 14.5 % (10.0-14.5); WHITE BLOOD COUNT 12.4 10^3/uL (4.3-11.0)
[2017-06-16] MEDS: predniSONE 20 MG TAB PO SCH (06:39)
[2017-06-16] MEDS: SUCRALFATE 1 GM (CARAFATE) TAB PO SCH ×4 (06:39→20:08)
[2017-06-16] MEDS: inSUlin ASPART (NovoLOG) 1 UNIT/0.01 ML (CHARGE PER UNIT) SC SCH ×4 (06:40→20:19)
[2017-06-16 06:45] LABS: BUN/CREATININE RATIO 22; CALCIUM 8.9 MG/DL (8.5-10.1); CARBON DIOXIDE 28 MMOL/L (21-32); CHLORIDE 109 MMOL/L (98-107); CREATININE SERUM 0.86 MG/DL (0.60-1.30); GFR ESTIMATED > 60; GLUCOSE 208 MG/DL (70-105); POTASSIUM 4.3 MMOL/L (3.6-5.0); SODIUM 140 MMOL/L (135-145)
[2017-06-16] MEDS: PANTOPRAZOLE 40 MG (PROTONIX) TAB PO SCH ×2 (08:54→20:08)
[2017-06-16] MEDS: ARIPIPRAZOLE 15 MG (ABILIFY) TAB PO SCH (08:54)
[2017-06-16] MEDS: MULTIVIT W/MINERALS TAB (THERAGRAN M) PO SCH (08:55)
[2017-06-16] MEDS: meTOprolol TARTRATE 25 MG (LOPRESSOR) TABLET PO SCH ×2 (08:55→20:08)
[2017-06-16] MEDS: NICOTINE 21 MG (NICODERM) PATCH TD SCH (08:55)
[2017-06-16] MEDS: FAMOTIDINE 20 MG (PEPCID) TABLET PO SCH ×2 (08:55→20:08)
[2017-06-16] MEDS: GABAPENTIN 300 MG (NEURONTIN) CAP PO SCH ×3 (08:55→20:08)
[2017-06-16] MEDS: ACETAMINOPHEN 500 MG TAB (TYLENOL) PO PRN (08:57)
[2017-06-16] MEDS: NICOTINE PATCH REMOVAL TP SCH (08:58)
[2017-06-16] MEDS: GLIMEPIRIDE 1 MG (AMARYL) TAB PO PRN (09:03)
[2017-06-16] MEDS: hydrOXYzine (VISTARIL) 25 MG CAP PO PRN ×3 (09:03→20:08)
[2017-06-16] MEDS ORDERED: KETOROLAC 60 MG/2 ML VIAL IM NR (12:00)
[2017-06-16] MEDS ORDERED: KETOROLAC 30 MG/ML VIAL ONE (12:46)
[2017-06-16] MEDS: ENOXAPARIN 40 MG/0.4 ML (LOVENOX) SYR SQ SCH (14:14)
[2017-06-16] MEDS ORDERED: ONDA8TAB13 PO (14:33)
--- NOTE | 2017-06-16 21:44 | Progress Note (SOAP) ---
Subjective Subjective/Events-last exam Patient states that she can not breath this AM. She is currently on 3L oxygen with saturations >96. She is complaining about headache and asking for narcotics stating that they are the only thing that helps her headaches. Tolerating PO diet and ambulating short distances. Review of Systems Date Seen by Provider: Jun 16, 2017 Time Seen by Provider: 10:45 Pulmonary: Dyspnea, Cough Cardiovascular: No: Chest Pain Gastrointestinal: No: Nausea, Vomiting, Diarrhea, Constipation Neurological: Other (Constant TANG) Objective Exam Last Set of Vital Signs Vital Signs Date Time Temp Pulse Resp B/P (MAP) Pulse Ox O2 Delivery O2 Flow Rate FiO2 06/16/17 19:20 98.0 83 20 129/72 (91) 97 Nasal Cannula 4.00 06/16/17 07:03 32 Capillary Refill : Less Than 3 Seconds I&O Intake and Output 06/16/17 00:00 Intake Total 5730 ml Output Total 3200 ml Balance 2530 ml Intake Oral 4730 ml IV Total 1000 ml Output Urine Total 3200 ml General: Alert, Oriented X3, Cooperative, No Acute Distress HEENT: Mucous Memb Moist/[place] Lungs: Other (diffuse wheezing, no crackles) Heart: Regular Rate, No Murmurs Extremities: No Edema, No Tenderness/Swelling Neuro: Sensation Intact, Cranial Nerves 3-12 NL Results/Procedures Lab Laboratory Tests 06/16/17 05:29: Glucometer 211H 06/16/17 06:15: White Blood Count 12.4H, Red Blood Count 3.48L, Hemoglobin 9.4L, Hematocrit 30L , Mean Corpuscular Volume 87, Mean Corpuscular Hemoglobin 27, Mean Corpuscular Hemoglobin Concent 31L, Red Cell Distribution Width 14.5, Platelet Count 233, Mean Platelet Volume 10.5H, Neutrophils (%) (Auto) 73, Lymphocytes (%) (Auto) 20 , Monocytes (%) (Auto) 7, Eosinophils (%) (Auto) 0, Basophils (%) (Auto) 0, Neutrophils # (Auto) 9.0H, Lymphocytes # (Auto) 2.4, Monocytes # (Auto) 0.9, Eosinophils # (Auto) 0.0, Basophils # (Auto) 0.0, Sodium Level 140, Potassium Level 4.3, Chloride Level 109H, Carbon Dioxide Level 28, Anion Gap 3L, Blood Urea Nitrogen 19H, Creatinine 0.86, Estimat Glomerular Filtration Rate > 60, BUN /Creatinine Ratio 22, Glucose Level 208H, Calcium Level 8.9 06/16/17 12:38: Glucometer 322H 06/16/17 15:27: Glucometer 270H 06/16/17 20:15: Glucometer 169H Radiology Date of Exam: 06/13/17 CHEST 1 VIEW, AP/PA ONLY Portable erect AP chest at 3:16 p.m. INDICATION: Shortness of breath. FINDINGS: The cardiomegaly and the scar formation in the left lung base seen on the prior exam of 05/23/2017 are again evident and no different. In the interval since the prior study, however, mild blunting of the left costophrenic angle has developed. This does suggest that there may be a small amount of pleural fluid in this area. The lungs are otherwise generally clear. The mediastinum is not widened. The osseous structures are intact. IMPRESSION: There appears to be a small amount of fluid now present in the left lung base. The overall appearance of the chest has not changed significantly otherwise. Clinical followup is recommended. Assessment/Plan Assessment/Plan Admission Status: Inpatient Order (span 2 midnights) Reason for Inpatient Admission: Patient continues to require supplemental oxygen above home oxygen use Assessment & Plan 1. COPD w/ acute exacerbation - no evidence of infection at this time - MAT protocol, Solu-medrol - decrease to 40mg IV q6h - currently on 13L vapotherm 06/15: Continuing to titrate as tolerated, discussed the importance of cessation, patient is not ready to quit smoking 06/16: Continue steroids and breathing treatments 2. Acute on chronic respiratory failure w/ hypoxia 3. DM Type 2 - resume home medications; SSI Novolog high dose 06/16: Blood sugars improved in last 24 hrs 4. Anxiety - hydroxyzine for anxiety 5. Chronic TANG - tylenol prn 06/16: Added Toradol for TANG 6. Tobacco Abuse - Discussed the importance of cessation 7. DVT PPX: Lovenox 8. Dispo: Patient plans to return home after d/c, continues to needs increased oxygen supplementation Clinical Quality Measures DVT/VTE Risk/Contraindication: Risk Factor Score Per Nursin RFS Level Per Nursing on Admit: 4+=Very High TIMOTHY LARIOS MD Jun 16, 2017 21:44
[2017-06-17 00:14] VITALS: BP 127/67
[2017-06-17] MEDS: RT-ALBUTEROL/IPRATROPIUM 3 ML (DUONEB) VIAL INH SCH ×3 (01:42→09:56)
[2017-06-17] MEDS: hydrOXYzine (VISTARIL) 25 MG CAP PO PRN ×2 (06:03→10:05)
[2017-06-17] MEDS: predniSONE 20 MG TAB PO SCH (06:03)
[2017-06-17] MEDS: SUCRALFATE 1 GM (CARAFATE) TAB PO SCH ×2 (06:03→10:05)
[2017-06-17] MEDS: inSUlin ASPART (NovoLOG) 1 UNIT/0.01 ML (CHARGE PER UNIT) SC SCH ×2 (06:03→10:00)
[2017-06-17 06:22] LABS: BASOPHILS % (AUTO) 0 % (0-10); EOSINOPHILS # (AUTO) 0.1 10^3/uL (0.0-0.3); EOSINOPHILS % (AUTO) 1 % (0-10); HEMATOCRIT 32 % (35-52); HEMOGLOBIN 10.1 G/DL (11.5-16.0); LYMPHOCYTES # (AUTO) 3.1 X 10^3 (1.0-4.0); LYMPHOCYTES % (AUTO) 31 % (12-44); MEAN CORPUSCULAR HEMOGLOBIN 27 PG (25-34); MEAN CORPUSCULAR HGB CONC 31 G/DL (32-36); MEAN CORPUSCULAR VOLUME 86 FL (80-99); MEAN PLATELET VOLUME 10.3 FL (7.4-10.4); MONOCYTES # (AUTO) 0.9 X 10^3 (0.0-1.0); MONOCYTES % (AUTO) 9 % (0-12); NEUTROPHILS # (AUTO) 5.9 X 10^3 (1.8-7.8); NEUTROPHILS % (AUTO) 60 % (42-75); PLATELET COUNT 258 10^3/uL (130-400); RED BLOOD COUNT 3.77 10^6/uL (4.35-5.85); RED CELL DISTRIBUTION WIDTH 14.5 % (10.0-14.5); WHITE BLOOD COUNT 9.9 10^3/uL (4.3-11.0)
[2017-06-17 06:45] LABS: BUN/CREATININE RATIO 22; CALCIUM 8.8 MG/DL (8.5-10.1); CARBON DIOXIDE 24 MMOL/L (21-32); CHLORIDE 108 MMOL/L (98-107); CREATININE SERUM 0.91 MG/DL (0.60-1.30); GFR ESTIMATED > 60; GLUCOSE 139 MG/DL (70-105); POTASSIUM 3.9 MMOL/L (3.6-5.0); SODIUM 142 MMOL/L (135-145)
[2017-06-17 08:00] VITALS: BP 164/89
[2017-06-17] MEDS: GABAPENTIN 300 MG (NEURONTIN) CAP PO SCH ×2 (08:23→12:33)
[2017-06-17] MEDS: ARIPIPRAZOLE 15 MG (ABILIFY) TAB PO SCH (08:24)
[2017-06-17] MEDS: PANTOPRAZOLE 40 MG (PROTONIX) TAB PO SCH (08:24)
[2017-06-17] MEDS: FAMOTIDINE 20 MG (PEPCID) TABLET PO SCH (08:24)
[2017-06-17] MEDS: NICOTINE 21 MG (NICODERM) PATCH TD SCH (08:25)
[2017-06-17] MEDS: NICOTINE PATCH REMOVAL TP SCH (08:25)
[2017-06-17] MEDS: MULTIVIT W/MINERALS TAB (THERAGRAN M) PO SCH (08:26)
[2017-06-17] MEDS: meTOprolol TARTRATE 25 MG (LOPRESSOR) TABLET PO SCH (08:26)
--- NOTE | 2017-06-17 12:02 | Discharge Summary ---
Diagnosis/Chief Complaint Date of Admission Jun 13, 2017 at 4:08 pm Date of Discharge Chief Complaint/HPI Chief Complaint/HPI This is a 52 yo female with known COPD w/ multiple prior admissions for acute on chronic respiratory failure. Pt reports Thursday she had onset of increasing SOA, scant sputum production and continued to worsen. Pt uses 2L oxygen at home. Pt continues to smoke. Pt denies fever/chills. Pt has chronic TANG and anxiety. Discharge Summary-Simple/Stand Consultations Discharge Physical Examination Allergies: Coded Allergies: buspirone (Verified Allergy, Mild, 05/02/17) Made"legs Shaky" amitriptyline (Verified Allergy, Unknown, 05/02/17) " MAKES ME DO WEIRD THINGS LIKE WALK IN MY SLEEP AND HAVE HALLUCINATIONS." Vitals & I&Os Vital Sign - Last 12Hours Date Time Temp Pulse Resp B/P (MAP) Pulse Ox O2 Delivery O2 Flow Rate FiO2 06/17/17 09:57 95 Room Air 21 06/17/17 08:00 98.2 87 21 164/89 (114) 06/17/17 06:50 30.00 Intake and Output 06/17/17 00:00 Intake Total 2160 ml Output Total 2050 ml Balance 110 ml Hospital Course See final discharge diagnosis. Radiology Reviewed Date of Exam: 06/13/17 CHEST 1 VIEW, AP/PA ONLY Portable erect AP chest at 3:16 p.m. INDICATION: Shortness of breath. FINDINGS: The cardiomegaly and the scar formation in the left lung base seen on the prior exam of 05/23/2017 are again evident and no different. In the interval since the prior study, however, mild blunting of the left costophrenic angle has developed. This does suggest that there may be a small amount of pleural fluid in this area. The lungs are otherwise generally clear. The mediastinum is not widened. The osseous structures are intact. IMPRESSION: There appears to be a small amount of fluid now present in the left lung base. The overall appearance of the chest has not changed significantly otherwise. Clinical followup is recommended. Discharge Instructions to patient/family Please see electronic discharge instructions given to patient. Discharge Medications Reviewed and agree with Discharge Medication list on patient's Discharge Instruction sheet Clinical Quality Measures DVT/VTE Risk/Contraindication: Risk Factor Score Per Nursin RFS Level Per Nursing on Admit: 4+=Very High GAULT,TIMOTHY R MD Jun 17, 2017 12:01 pm
[2017-06-17] MEDS ORDERED: PRD20T PO (12:04)
--- NOTE | 2017-06-17 12:06 | Discharge Instructions ---
Discharge [facility] Discharge Medications New, Converted or Re-Newed RX: Transmitted to Pharmacy ([facility]) New Medications: Prednisone (Prednisone) 20 Mg Tab 40 MG PO DAILY@0700 for 10 Days, #10 TAB Continued Medications: Albuterol Sulfate (Ventolin Hfa) 1 Puff Puff 2 PUFF IH Q4H PRN for SHORTNESS OF BREATH, PUFF 1 PUFF = 90 MCG Aripiprazole (Aripiprazole) 15 Mg Tablet 15 MG PO DAILY, TAB Dulaglutide (Trulicity) 0.75 Mg/0.5 Ml Pen.injctr 0.75 MG SQ Th, VIAL LAST DISPENSED 10/28/16 FROM PALS PROGRAM Duloxetine HCl (Cymbalta) 60 Mg Capsule.dr 120 MG PO DAILY, CAP TAKES 2 (60MG) CAPSULES Fluticasone/Salmeterol (Advair 250-50 Diskus) 1 Each Blst.w.dev 1 PUFF IH BID, INHALER Gabapentin (Gabapentin) 300 Mg Capsule 300 MG PO TID, CAP LAST DISPENSED FROM REPOSITORY 10/01/16 #270 Glimepiride (Glimepiride) 1 Mg Tablet 1 MG PO DAILY PRN for WHEN TAKING PREDNISONE, TAB LAST FILLED 03/30/17 #30 Ipratropium/Albuterol Sulfate (Iprat-Albut 0.5-3(2.5) mg/3 ml) 3 Ml Ampul.neb 3 ML IH QID PRN for SHORTNESS OF BREATH, EA Metoprolol Tartrate (Metoprolol Tartrate) 25 Mg Tablet 12.5 MG PO BID, TAB TAKES 1/2 (25MG) TABLET / LAST FILLED 04/16/17 #30 Multivitamin (Multivitamins) 1 Each Tablet 1 TAB PO DAILY, TAB Ondansetron (Ondansetron Odt) 8 Mg Tab.rapdis 8 MG PO Q6H PRN for NAUSEA/VOMITING-1ST LINE, TAB Pantoprazole Sodium (Pantoprazole Sodium) 40 Mg Tablet.dr 40 MG PO BID, TAB LAST FILLED 05/05/17 #60 Psyllium Husk (with Sugar) (Metamucil Packet) 3.4 Gm Powd.pack 3.4 GM PO DAILY, EACH Sucralfate (Sucralfate) 1 Gm Tablet 1 GM PO ACHS, TAB LAST FILLED 05/05/17 #120 Tiotropium [place] (Spiriva) 1 Inh Aerp 1 CAP IH DAILY, INHALER Topiramate (Topiramate) 100 Mg Tablet 100 MG PO BID, TAB LAST FILLED 02/06/17 #60 Discontinued Medications: Melatonin (Melatonin) 5 Mg Capsule 5 MG PO HS, CAP Zolpidem Tartrate (Zolpidem Tartrate ER) 6.25 Mg Tab.mphase 6.25 MG PO HS PRN for SLEEP, TAB LAST FILLED 03/17/17 #15 Patient Instructions Goal/Follow Up Appt: You have a hospital follow up appt with Alondra Jacob on 06/24 @ 120 PM Patient Instructions: - make sure you take your steroids - STOP SMOKING Return to [facility]: - Shortness of breathe not improved with breathing treatments Activity & Diet Discharge Diet: Low Sodium Diet, ADA Diet Activity as Tolerated: Yes Copy Copies To 1: Alondra AVILA HOLLY R MD Jun 17, 2017 12:06 pm
[2017-06-17] MEDS: ACETAMINOPHEN 500 MG TAB (TYLENOL) PO PRN (12:31)
[2017-06-17 14:15] VITALS: BP 158/88
== END 2017-06-17 14:05 | disposition home or self-care (01) | DRG 189 ==
LOC: EDUNIT# 14:46 → ER 14:48 → ICU 16:08 → 4TH 06-15 16:10
PROVIDERS: ADMIT Family Medicine; ATTEND Family Medicine
DX: J96.21 Acute and chronic respiratory failure with hypoxia (principal); J44.1 Chronic obstructive pulmonary disease with (acute) exacerbation; E87.6 Hypokalemia; E11.9 Type 2 diabetes mellitus without complications; F41.9 Anxiety disorder, unspecified; G43.909 Migraine, unspecified, not intractable, without status migrainosus; F32.9 Major depressive disorder, single episode, unspecified; E78.5 Hyperlipidemia, unspecified; E78.1 Pure hyperglyceridemia; G47.00 Insomnia, unspecified; K29.70 Gastritis, unspecified, without bleeding; F17.210 Nicotine dependence, cigarettes, uncomplicated; Z99.81 Dependence on supplemental oxygen
CPT/HCPCS: 36415; 71045; 80048; 80053; 82962; 85007; 85025; 85027; 93041; 94640; 94660; 94760; 96374; 96375; 96376

== ENCOUNTER 2017-08-04 16:37 | Inpatient (IN) | payer OTHER ==
[~2017-08-04] VITALS: Ht 175.3 cm; Wt 99.5 kg
[~2017-08-04 16:37] MED LIST changes: +ONDA8TAB13 PO
[2017-08-04] MEDS ORDERED: RT-ALBUTEROL/IPRATROPIUM 3 ML (DUONEB) VIAL INH ONE ×2 (16:45→18:00)
[2017-08-04 16:56] LABS: ABG BASE EXCESS 5.2 MMOL/L (-2.5-2.5); ABG OXYGEN SATURATION 97 % (94-100); ABG PCO2 42 MMHG (35-45); ABG PH 7.46 (7.37-7.43); ABG PO2 79 MMHG (79-93); ABG TCO2 30.4 MMOL/L (21.0-31.0)
--- NOTE | 2017-08-04 16:57 | ED Respiratory ---
General Chief Complaint: Respiratory Problems Stated Complaint: TROUBLE BREATHING Source: patient Exam Limitations: no limitations History of Present Illness Date Seen by Provider: August 04, 2017 Time Seen by Provider: 16:56 Initial Comments To ER with reports of dyspnea. History of COPD Timing/Duration: yesterday, getting worse Severity: moderate Prior Episodes/Possible Cause: frequent episodes Associated Symptoms: cough, shortness of breath, wheezing Allergies and Home Medications Allergies Coded Allergies: buspirone (Verified Allergy, Mild, 05/02/17) Made"legs Shaky" amitriptyline (Verified Allergy, Unknown, 05/02/17) " MAKES ME DO WEIRD THINGS LIKE WALK IN MY SLEEP AND HAVE HALLUCINATIONS." Home Medications Albuterol Sulfate 1 Puff Puff, 2 PUFF IH Q4H PRN for SHORTNESS OF BREATH, ( Reported) 1 PUFF = 90 MCG Aripiprazole 15 Mg Tablet, 15 MG PO DAILY, (Reported) Cefuroxime Axetil 500 Mg Tablet, 500 MG PO BID Prescribed by: ELLEN ACE on 08/04/17 1728 Dulaglutide 0.75 Mg/0.5 Ml Pen.injctr, 0.75 MG SQ Th, (Reported) LAST DISPENSED 10/28/16 FROM PALS PROGRAM Duloxetine HCl 60 Mg Capsule.dr, 120 MG PO DAILY, (Reported) TAKES 2 (60MG) CAPSULES Fluticasone/Salmeterol 1 Each Blst.w.dev, 1 PUFF IH BID, (Reported) Gabapentin 300 Mg Capsule, 300 MG PO TID, (Reported) LAST DISPENSED FROM REPOSITORY 10/01/16 #270 Glimepiride 1 Mg Tablet, 1 MG PO DAILY PRN for WHEN TAKING PREDNISONE, (Reported ) LAST FILLED 03/30/17 #30 Ipratropium/Albuterol Sulfate 3 Ml Ampul.neb, 3 ML IH QID PRN for SHORTNESS OF BREATH, (Reported) Metoprolol Tartrate 25 Mg Tablet, 12.5 MG PO BID, (Reported) TAKES 1/2 (25MG) TABLET / LAST FILLED 04/16/17 #30 Multivitamin 1 Each Tablet, 1 TAB PO DAILY, (Reported) Ondansetron 8 Mg Tab.rapdis, 8 MG PO Q6H PRN for NAUSEA/VOMITING-1ST LINE, ( Reported) Pantoprazole Sodium 40 Mg Tablet.dr, 40 MG PO BID, (Reported) LAST FILLED 05/05/17 #60 Prednisone 20 Mg Tab, 40 MG PO DAILY@0700 Prescribed by: TIMOTHY LARIOS on 06/17/17 1204 Prednisone 20 Mg Tab, 40 MG PO DAILY Prescribed by: ELLEN ACE on 08/04/17 1728 Psyllium Husk (with Sugar) 3.4 Gm Powd.pack, 3.4 GM PO DAILY, (Reported) Sucralfate 1 Gm Tablet, 1 GM PO ACHS, (Reported) LAST FILLED 05/05/17 #120 Tiotropium [place] 1 Inh Aerp, 1 CAP IH DAILY, (Reported) Topiramate 100 Mg Tablet, 100 MG PO BID, (Reported) LAST FILLED 02/06/17 #60 Patient Home Medication List Home Medication List Reviewed: Yes Review of Systems Constitutional: see HPI EENTM: see HPI Respiratory: see HPI, cough, short of breath Cardiovascular: no symptoms reported Genitourinary: no symptoms reported Musculoskeletal: no symptoms reported Skin: no symptoms reported Psychiatric/Neurological: No Symptoms Reported Hematologic/Lymphatic: No Symptoms Reported Past Xwojgkh-Liiplg-Roytgu Hx Patient Social History Drug of Choice: +IV METH past hx Type Used: Cigarettes 2nd Hand Smoke Exposure: Yes Recent Foreign Travel: No Contact w/Someone Who Travel: No Recent Hopitalizations: Yes Immunizations Up To Date Tetanus Booster (TDap): Unknown Date of Pneumonia Vaccine: Dec 08, 2011 Date of Influenza Vaccine: Dec 31, 2016 Seasonal Allergies Seasonal Allergies: No Past Medical History Surgeries: No Respiratory: Yes (O2 AT 2-3L/NC) Asthma, Sleep Apnea, COPD, Emphysema Currently Using CPAP: No Currently Using BIPAP: Yes (PT. STATED) Cardiac: Yes (HAD HEART CATH. 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 Disorders: Denies [employer] History: Menopausal Sexually Transmitted Disease: No HIV/AIDS: No Genitourinary: No Gastrointestinal: Yes Chronic Constipation, Chronic Diarrhea Musculoskeletal: Yes (chronic shoulder and neck pain) Endocrine: Yes (DM- only while on steriods per pt) Diabetes, Non-Insulin dep HEENT: No Cancer: No Psychosocial: Yes Sleep Difficulties, Anxiety, Suicide Attempts, Bipolar, Depression Integumentary: No Blood Disorders: No Adverse Reaction/Blood Tranf: No Family Medical History Cancer 03 MOTHER, Onset:66 (LUNG ) 09 BROTHER (LUNG ) Congestive heart failure 03 FATHER Heart Disease, Cancer Physical Exam Vital Signs Vital Signs - First Documented 08/04/17 08/04/17 16:51 16:57 Temp 96.8 Pulse 105 Resp 26 B/P (MAP) 125/91 (102) Pulse Ox 95 O2 Delivery Nasal Cannula O2 Flow Rate 3.00 Capillary Refill : General Appearance: WD/WN, moderate distress Eyes: Bilateral Eye Normal Inspection, Bilateral Eye PERRL, Bilateral Eye EOMI HEENT: PERRL/EOMI, normal ENT inspection Neck: non-tender, full range of motion Respiratory: no accessory muscle use, decreased breath sounds, accessory muscle use, wheezing Gastrointestinal: normal bowel sounds, non tender, soft Extremities: normal range of motion, non-tender Neurologic/Psychiatric: alert, normal mood/affect, oriented x 3 Skin: normal color, warm/dry Progress/Results/Core Measures Suspected Sepsis SIRS Temperature: Pulse: Respiratory Rate: Laboratory Tests 08/04/17 16:45: White Blood Count 11.0 Blood Pressure / Mean: Laboratory Tests 08/04/17 16:45: Creatinine 0.74, Platelet Count 437H, Total Bilirubin 0.9 Results/Orders Lab Results Laboratory Tests Test 08/04/17 16:45 08/04/17 16:46 Range/Units White Blood Count 11.0 4.3-11.0 10^3/uL Red Blood Count 4.76 4.35-5.85 10^6/uL Hemoglobin 11.9 11.5-16.0 G/DL Hematocrit 37 35-52 % Mean Corpuscular Volume 78 L 80-99 FL Mean Corpuscular Hemoglobin 25 25-34 PG Mean Corpuscular Hemoglobin Concent 32 32-36 G/DL Red Cell Distribution Width 15.5 H 10.0-14.5 % Platelet Count 437 H 130-400 10^3/uL Mean Platelet Volume 10.2 7.4-10.4 FL Neutrophils (%) (Auto) 67 42-75 % Lymphocytes (%) (Auto) 22 12-44 % Monocytes (%) (Auto) 10 0-12 % Eosinophils (%) (Auto) 1 0-10 % Basophils (%) (Auto) 0 0-10 % Neutrophils # (Auto) 7.4 1.8-7.8 X 10^3 Lymphocytes # (Auto) 2.4 1.0-4.0 X 10^3 Monocytes # (Auto) 1.1 H 0.0-1.0 X 10^3 Eosinophils # (Auto) 0.1 0.0-0.3 10^3/uL Basophils # (Auto) 0.0 0.0-0.1 10^3/uL Sodium Level 141 135-145 MMOL/L Potassium Level 3.4 L 3.6-5.0 MMOL/L Chloride Level 104 98-107 MMOL/L Carbon Dioxide Level 25 21-32 MMOL/L Anion Gap 12 5-14 MMOL/L Blood Urea Nitrogen 7 7-18 MG/DL Creatinine 0.74 0.60-1.30 MG/DL Estimat Glomerular Filtration Rate > 60 BUN/Creatinine Ratio 9 Glucose Level 134 H 70-105 MG/DL Calcium Level 9.5 8.5-10.1 MG/DL Total Bilirubin 0.9 0.1-1.0 MG/DL Aspartate Amino Transf (AST/SGOT) 19 5-34 U/L Alanine Aminotransferase (ALT/SGPT) 35 0-55 U/L Alkaline Phosphatase 96 40-136 U/L Total Protein 6.7 6.4-8.2 GM/DL Albumin 3.5 3.2-4.5 GM/DL Blood Gas Puncture Site LT RAD Blood Gas Patient Temperature 98.1 Arterial Blood pH 7.46 H 7.37-7.43 Arterial Blood Partial Pressure CO2 42 35-45 MMHG Arterial Blood Partial Pressure O2 79 79-93 MMHG Arterial Blood HCO3 29 H 23-27 MMOL/L Arterial Blood Total CO2 30.4 21.0-31.0 MMOL/L Arterial Blood Oxygen Saturation 97 94-100 % Arterial Blood Base Excess 5.2 H -2.5-2.5 MMOL/L Torsten Test YES-POS Blood Gas Ventilator Setting NO Blood Gas Inspired Oxygen 3 My Orders Orders - ELLEN ACE WAIT STAFF Cbc With Automated Diff (08/04/17 16:42) Comprehensive Metabolic Panel (08/04/17 16:42) Albuterol/Ipra Inhalation Soln (Duoneb I (08/04/17 16:45) Svn Small Volume Nebulizer (08/04/17 16:42) Iv Heplock-Insert (Order) (08/04/17 16:42) Arterial Blood Gas (08/04/17 16:50) Chest 1 View, Ap/Pa Only (08/04/17 17:14) Medications Given in ED Current Medications Medications Dose Ordered Sig/Vladimir Route Start Time Stop Time Status Last Admin Dose Admin Albuterol/ Ipratropium 3 ml ONCE ONCE INH 08/04/17 16:45 08/04/17 16:46 DC 08/04/17 16:50 3 ML Vital Signs/I&O 08/04/17 08/04/17 16:51 16:57 Temp 96.8 Pulse 105 Resp 26 B/P (MAP) 125/91 (102) Pulse Ox 95 96 O2 Delivery Nasal Cannula Nasal Cannula O2 Flow Rate 3.00 3.00 Capillary Refill : Departure Communication (Admissions) Time/Spoke to Admitting Phy: 17:45 1726- still minimal air movement with increased wheezing after breathing treatment. Oxygen saturation 97% on 2 L which she wears around the clock. Despite normal-appearing labs she is still in some degree of respiratory distress with accessory muscle use. I discussed with RT will startVapotherm prior to initiating BiPAP. I discussed with Dr. Saeed, we'll admit to the ICU Impression Primary Impression: COPD with exacerbation Additional Impression: Respiratory distress Disposition: ADMITTED INPATIENT Condition: Stable Admissions Decision to Admit Reason: Admit from ER (General) Decision to Admit/Date: August 04, 2017 Time/Decision to Admit Time: 17:46 Departure-Patient Inst. Decision time for Depature: 17:27 Referrals: [facility] [place] Primary Care Physician ALIZA CARTER (Family) Primary Care Physician Patient Instructions: Exacerbation of COPD Add. Discharge Instructions: 1. Antibiotics and steroids as directed 2. Follow-up with her doctor tomorrow 3. All discharge instructions reviewed with patient and/or family. Voiced understanding. Scripts Cefuroxime Axetil (Cefuroxime) 500 Mg Tablet 500 MG PO BID, #14 TAB Prov: ELLEN ACE WAIT STAFF 08/04/17 Prednisone (Prednisone) 20 Mg Tab 40 MG PO DAILY, #8 TAB Prov: ELLEN ACE WAIT STAFF 08/04/17 ELLEN ACE WAIT STAFF August 04, 2017 16:57
[2017-08-04 16:58] LABS: ALLENS TEST YES-POS; INSPIRED O2 3; PATIENT TEMP 98.1; VENTILATOR NO
[2017-08-04 17:02] LABS: BASOPHILS % (AUTO) 0 % (0-10); EOSINOPHILS # (AUTO) 0.1 10^3/uL (0.0-0.3); EOSINOPHILS % (AUTO) 1 % (0-10); HEMATOCRIT 37 % (35-52); HEMOGLOBIN 11.9 G/DL (11.5-16.0); LYMPHOCYTES # (AUTO) 2.4 X 10^3 (1.0-4.0); LYMPHOCYTES % (AUTO) 22 % (12-44); MEAN CORPUSCULAR HEMOGLOBIN 25 PG (25-34); MEAN CORPUSCULAR HGB CONC 32 G/DL (32-36); MEAN CORPUSCULAR VOLUME 78 FL (80-99); MEAN PLATELET VOLUME 10.2 FL (7.4-10.4); MONOCYTES # (AUTO) 1.1 X 10^3 (0.0-1.0); MONOCYTES % (AUTO) 10 % (0-12); NEUTROPHILS # (AUTO) 7.4 X 10^3 (1.8-7.8); NEUTROPHILS % (AUTO) 67 % (42-75); PLATELET COUNT 437 10^3/uL (130-400); RED BLOOD COUNT 4.76 10^6/uL (4.35-5.85); RED CELL DISTRIBUTION WIDTH 15.5 % (10.0-14.5)
[2017-08-04 17:20] LABS: ALANINE AMINOTRANSFERASE 35 U/L (0-55); ALBUMIN 3.5 GM/DL (3.2-4.5); ALKALINE PHOSPHATASE 96 U/L (40-136); BILIRUBIN,TOTAL 0.9 MG/DL (0.1-1.0); BUN/CREATININE RATIO 9; CALCIUM 9.5 MG/DL (8.5-10.1); CARBON DIOXIDE 25 MMOL/L (21-32); CHLORIDE 104 MMOL/L (98-107); CREATININE SERUM 0.74 MG/DL (0.60-1.30); GFR ESTIMATED > 60; GLUCOSE 134 MG/DL (70-105); POTASSIUM 3.4 MMOL/L (3.6-5.0); SODIUM 141 MMOL/L (135-145); TOTAL PROTEIN 6.7 GM/DL (6.4-8.2)
[2017-08-04] MEDS ORDERED: PRD20T PO (17:28)
[2017-08-04] MEDS ORDERED: CEFU500T63 PO (17:28)
--- NOTE | 2017-08-04 17:31 | Diagnostic Imaging Report ---
INDICATION: Difficulty breathing. FINDINGS: Upright portable chest shows normal heart size and vascularity. There is minimal fluid or pleural thickening on the left. No mass or alveolar infiltrate is seen. There is no pneumothorax. There is no acute bony abnormality. There is no change from a prior study from 06/13/2017. IMPRESSION: Possible minimal effusion on the left. Stable chest. Dictated by: Dictated on workstation # [id number]
--- OUTSIDE RECORDS SUMMARY | 2017-08-04 18:05 | XMS REPORT ---
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 Active Problem Thrush B37.0 Active 22174173 Problem TMJ (sprain of temporomandibular joint) S03.4XXA Active 26241577 Problem Anxiety F41.9 Active 47765966 Problem Tobacco abuse Z72.0 Active 63633971 Problem Non morbid obesity due to excess calories E66.09 Active 501392751 Problem Migraine G43.909 Active 97152877 Problem History of MRSA infection Z86.14 Active 854836164 Problem Knee pain, left M25.562 Active 87589490 Problem Obesity, unspecified obesity severity, unspecified obesity type E66.9 Active 022455408 Problem Migraine without aura and without status migrainosus, not intractable G43.009 Active 471632031 Problem Other emphysema J43.8 Active 82206128 Problem Intractable cyclical vomiting with nausea G43.A1 Active 54761198 Problem Viral illness B34.9 Active 63300916 Problem Dry mouth R68.2 Active 44621487 Problem Encounter for tobacco use cessation counseling Z71.6 Active 509061579 Problem Acute bronchitis with COPD J44.0 Active [id number] Problem Methamphetamine use disorder, moderate, 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 Active 56690439 Problem Chronic bronchitis, unspecified chronic bronchitis type J42 Active 31286170 Problem COPD exacerbation J44.1 Active 909691059 Problem Diabetes E11.9 Active 366614302 Problem Memory loss R41.3 Active 14243425 Problem Left knee pain M25.562 Active 60469740 Problem Chronic constipation K59.09 Active 258935127 Problem Yeast vaginitis B37.3 Active 93079292 Problem Generalized anxiety disorder F41.1 Active 36851087 Problem Bipolar disorder with depression F31.30 Active 79607714 Problem Bipolar disorder, unspecified F31.9 Active 58291507 Problem Bipolar disorder, current episode depressed, severe, without psychotic features F31.4 Active 51680447 ALLERGIES No Information ENCOUNTERS Encounter Location Date Diagnosis [facility], [place] [address] [address]- [address] May, [facility] [place] [address] 17359- 9855 19 May, 2017 [facility] [id number] [place] [address] 83479 -5458 17 May, 2017 [facility], [place] [address] 20670- 8684 16 May, 2017 [facility], [place] [id number] [place] [address] 05601- 3157 15 May, 2017 [facility], [place] [address] 9[address]65- 3600 14 May, 2017 Diarrhea, unspecified type R19.7 and Intractable cyclical vomiting with nausea G43.A1 [facility], [place] [id number] [place] [address] 73099- 5502 12 May, 2017 [facility], [place] [address] 26819- 3195 05 May, 2017 [facility] [place] [address] 72121- 0331 Apr, COPD exacerbation J44.1 ; Esophageal candidiasis B37.81 ; Other acute gastritis with hemorrhage K29.01 and Acute posthemorrhagic anemia D62 [facility], [place] [id number] [place] [address] 11704- 5839 Apr, Viral illness B34.9 and COPD exacerbation J44.1 [facility] [id number] [place] [address] 06352 -3690 Apr, Shortness of breath R06.02 and Pneumonia of both lower lobes due to infectious organism J18.9 [facility] [id number] [place] [address] 88114 -4673 Mar, COPD with acute exacerbation J44.1 [facility] [id number] [place] [address] 46488- 0895 Mar, Chronic obstructive pulmonary disease with acute exacerbation J44.1 and Diabetes E11.9 [place] [facility] [address] 17032- 1159 Mar, [facility] [place] [id number] [place] [address] 53781- 9225 Mar, [facility] [id number] [place] [address] 59272 -9893 Mar, COPD exacerbation J44.1 [facility] [id number] [place] [address] 23049- 2037 Mar, [facility] [id number] [place] [address] 04900- 0416 Mar, Migraine G43.909 ; Hypokalemia E87.6 and Type 2 diabetes mellitus without complications E11.9 [facility] [id number] [place] [address] 38451- 1008 Feb, [facility] [id number] [place] [address] 34084- 4482 Feb, [place] [address] 62580- 8381 Feb, Methamphetamine use disorder, moderate, 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 ; Major depressive disorder, recurrent, moderate F33.1 ; Anxiety disorder, unspecified F41.9 and Tobacco abuse Z72.0 [facility] [id number] [place] [address] 85717- 9889 30 Jan, 2017 Major depressive disorder, recurrent, moderate F33.1 [facility], [place] [id number] [place] [address] 57523- 6730 16 Jan, 2017 [facility] [place] [id number] [place] [address] 33796- 3477 14 Jan, 2017 [facility], [place] [id number] [place] [address] 83602- 9643 Jan, Major depressive disorder, recurrent, moderate F33.1 [facility] [id number] [place] [address] 89016- 4297 Jan, Major depressive disorder, recurrent, moderate F33.1 ; Anxiety disorder, unspecified F41.9 ; Methamphetamine use disorder, moderate, 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 and Tobacco abuse Z72.0 [facility] [id number] [place] [address] 99344- 7578 Jan, [facility] [id number] [place] [address] 19567- 3071 Jan, Chronic obstructive pulmonary disease with acute exacerbation J44.1 and Diabetes E11.9 [facility] [id number] [place] [address] 59957- 4057 Jan, [facility] [id number] [place] [address] 67053- 3747 Jan, [facility], [place] [id number] [place] [address] 94344- 4437 Dec, Acute respiratory failure with hypoxia J96.01 and Chronic bronchitis, unspecified chronic bronchitis type J42 [facility], [place] [id number] [place] [address] 21072- 2838 Dec, [facility] [id number] [place] [address] [id number] Nov, Dental caries K02.9 and Dental examination Z01.20 [facility], [place] [id number] [place] [address] 96919- 8761 Nov, Major depressive disorder, recurrent, moderate F33.1 ; Anxiety disorder, unspecified F41.9 and 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 [facility] [address] [id number] Oct, Dental examination Z01.20 [facility], [place] [id number] [place] [address] 63010- 2201 Oct, [facility] [place] [id number] [place] [address] 89877- 7809 Oct, Diabetes E11.9 and Thrush B37.0 [facility], [place] [address] 20950- 1309 Oct, [facility] [place] [id number] [place] [address] 35867- 3287 Oct, [facility] [place] [id number] [place] [address] 84489- 0696 Oct, [facility] [place] [id number] [place] [address] 99177- 2930 Sep, Major depressive disorder, recurrent, moderate F33.1 ; Anxiety disorder, unspecified F41.9 and Bipolar disorder, unspecified F31.9 [facility], [place] [id number] [place] [address] 23459- 5435 Sep, Acute exacerbation of chronic obstructive pulmonary disease (COPD) J44.1 and Migraine G43.909 [facility], [place] [address] [address]- 4706 Sep, [facility] [place] [id number] [place] [address] [id number] Sep, [facility] [place] [id number] [place] [address] 05282- 8513 Sep, Acute exacerbation of chronic obstructive pulmonary disease (COPD) J44.1 [facility] [id number] [place] [address] 78450 -7894 Sep, Acute exacerbation of chronic obstructive pulmonary disease (COPD) J44.1 [facility], [place] [id number] [place] [address] 75042- 7982 Aug, [facility] [place] [id number] [place] [address] 57848- 5503 20 Aug, 2016 Major depressive disorder, recurrent, moderate F33.1 ; Anxiety disorder, unspecified F41.9 and 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 [facility], [place] [id number] [place] [address] 60904- 5541 19 Aug, 2016 Wheezing R06.2 ; Non morbid obesity due to excess calories E66.09 ; Migraine without aura and without status migrainosus, not intractable G43.009 and Tobacco abuse Z72.0 [facility] [id number] [place] [address] [id number] 14 Aug, 2016 Encounter for dental examination Z01.20 [facility] [id number] [place] [address] 70945- 6114 02 Aug, 2016 Major depressive disorder, recurrent, moderate F33.1 ; Anxiety disorder, unspecified F41.9 and 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 [facility] [id number] [place] [address] 36309- 2168 July, [facility] [id number] [place] [address] 23382- 0315 July, [facility] [id number] [place] [address] 90708- 8999 July, [facility] [id number] [place] [address] 23829- 0640 July, Diabetes E11.9 [facility] [place] [id number] [place] [address] 04562- 8833 Jun, Major depressive disorder, recurrent, moderate F33.1 [facility] [id number] [place] [address] 11285- 1235 Jun, Major depressive disorder, recurrent, moderate F33.1 ; 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 ; Generalized anxiety disorder F41.1 and Bipolar disorder, unspecified F31.9 [facility] [place] [id number] [place] [address] 38891- 2765 Jun, Diabetes E11.9 ; Migraine G43.909 ; Thrush B37.0 and Wheezing R06.2 [facility] [address] [id number] Jun, Dental examination Z01.20 [facility], [place] [address] 047344- 7565 Jun, [facility] [place] [address] 84128- 6520 Jun, Major depressive disorder, recurrent, moderate F33.1 ; Anxiety disorder, unspecified F41.9 and 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 [facility] [place] [id number] [place] [address] 37614- 6936 Jun, [facility] [place] [address] 01835- 4503 Jun, Wheezing R06.2 [facility] [address] [id number] Jun, Dental caries K02.9 [facility], [place] [address] [id number]- 0229 Jun, Major depressive disorder, recurrent, moderate F33.1 ; Anxiety disorder, unspecified F41.9 and 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4 ; Urinary frequency R35.0 ; Edema, unspecified type R60.9 and Chronic constipation K59.09 [facility], [place] [id number] [place] [address] 50913- 2097 08 May, 2016 Major depressive disorder, recurrent, moderate F33.1 ; Anxiety disorder, unspecified F41.9 and 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 [facility] [id number] [place] [address] [id number] May, Dental examination Z01.20 [facility] [place] [id number] [place] [address] 80330- 0080 May, [facility] [place] [id number] [place] [address] 61049- 8633 May, [facility] [place] [id number] [place] [address] 07225- 2165 May, Chronic constipation K59.09 [facility], [place] [id number] [place] [address] 86083- 5887 Apr, [facility] [place] [id number] [place] [address] 23183- 0493 Apr, Major depressive disorder, recurrent, moderate F33.1 ; Anxiety disorder, unspecified F41.9 and 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 [facility] [place] [id number] [place] [address] 65583- 5657 Apr, [facility] [place] [id number] [place] [address] 99121- 7833 Mar, Major depressive disorder, recurrent, moderate F33.1 [facility] [place] [id number] [place] [address] 81125- 3060 Mar, Major depressive disorder, recurrent, moderate F33.1 ; Generalized anxiety disorder F41.1 and Bipolar I disorder, most recent episode depressed with anxious distress F31.30 [facility] [id number] [place] [address] 32101- 4898 Mar, Diabetes E11.9 ; Non morbid obesity due to excess calories E66.09 ; Breast cancer screening Z12.39 and Encounter for immunization Z23 [facility] [id number] [place] [address] 07342- 6873 Mar, Major depressive disorder, recurrent, moderate F33.1 ; Anxiety disorder, unspecified F41.9 and 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 [facility] [id number] [place] [address] 81376- 2564 Mar, [place] [address] 24014- 2275 Feb, Major depressive disorder, recurrent, moderate F33.1 ; Anxiety disorder, unspecified F41.9 and 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1 ; Anxiety disorder, unspecified F41.9 and 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 [place] [address] [place] [address]- 7477 Jan, Bronchitis J40 [facility] [place] [id number] [place] [address] 76854- 3369 Jan, [facility] [place] [address] [address]- 3909 Jan, [facility] [place] [address] [place] [address] 60842- 0530 Jan, Elbow injury, right, initial encounter S59.901A ; Multiple contusions T14.8 and Cervical strain, acute, initial encounter S16.1XXA [facility], [place] [address] [place] [address] 00896- 5851 Dec, Major depressive disorder, recurrent, moderate F33.1 ; Generalized anxiety disorder F41.1 and Bipolar disorder with depression F31.30 [facility] [place] [id number] [place] [address] 52427- 2870 Dec, [facility] [place] [id number] [place] [address] 32846- 8474 Dec, [facility] [place] [id number] [place] [address] 40418- 7592 Dec, [facility] [place] [address] [address]- 3385 Dec, [facility] [place] [address], [place] [address]- 7272 Dec, Yeast infection B37.9 [facility] [place] [id number] [place] [address] 86838- 9689 Dec, Pneumonia of both lungs due to methicillin resistant Staphylococcus aureus (MRSA), unspecified part of lung J15.212 and Benzodiazepine overdose, accidental or unintentional, subsequent encounter T42.4X1D [facility] [place] [address] [address]- 3363 Dec, [facility] [place] [address], [place] [address]- 5780 Dec, [place] [facility] [address] [place] [address]- 7634 Dec, Knee pain, left M25.562 and Edema, unspecified type R60.9 [place] [id number] [place] [address] 35774- 1748 Dec, [place] [id number] [place] [address] 0745 Dec, Anxiety disorder, unspecified F41.9 and Bipolar disorder, unspecified F31.9 [place] [id number] [place] [address]5 Nov, Major depressive disorder, recurrent, moderate F33.1 ; Anxiety disorder, unspecified F41.9 and 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 [place] [id number] [place] [address] 95875- 9159 Nov, [place] [id number] [place] [address] 54227- 4478 Nov, Migraine without aura and without status migrainosus, not intractable G43.009 [place] [id number] [place] [address] 07023- 4547 Nov, Migraine G43.909 [place] [place] [id number] [place] [address] 34805- 6190 Nov, [place] [id number] [place] [address] 48975- 4426 Nov, Major depressive disorder, recurrent, moderate F33.1 ; Anxiety disorder, unspecified F41.9 and 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 [place] [id number] [place] [address] 11299- 0427 Oct, Chronic constipation K59.09 and Obesity, unspecified obesity severity, unspecified obesity type E66.9 [place] [id number] [place] [address] 17505- 0533 Oct, Obesity, unspecified obesity severity, unspecified obesity type E66.9 ; Chronic constipation K59.09 and Anxiety disorder, unspecified F41.9 [place] [id number] [place] [address] 45121- 9677 Oct, [place] [id number] [place] [address] 14842- 0881 Sep, Diabetes E11.9 ; Edema, unspecified type R60.9 ; Varicose vein of leg I83.90 and Obesity, unspecified obesity severity, unspecified obesity type E66.9 [place] [id number] [place] [address] 33797- 6654 Sep, Edema, unspecified type R60.9 ; Diabetes E11.9 and Knee pain , left M25.562 [place] [id number] [place] [address] 64006- 9350 Sep, [place] [id number] [place] [address] 25891- 0363 Sep, [place] [id number] [place] [address] 12711- 1205 Sep, Major depressive disorder, recurrent, moderate F33.1 ; Generalized anxiety disorder F41.1 and Bipolar disorder, unspecified F31.9 [place] [id number] [place] [address] 24225- 9149 Aug, Chondromalacia of left knee M94.262 [place] [id number] [place] [address] 77241- 5870 Aug, Major depressive disorder, recurrent, moderate F33.1 ; Anxiety disorder, unspecified F41.9 and 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 [place] [id number] [place] [address] 58672- 7568 Aug, [place] [id number] [place] [address] 81159- 5760 Aug, Osteoarthritis of left knee M17.9 [facility] [place] [id number] [place] [address] 15591- 7209 Aug, [facility] [place] [id number] [place] [address] 03403- 0766 July, Major depressive disorder, recurrent, moderate F33.1 ; Anxiety disorder, unspecified F41.9 and 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 [facility] [place] [id number] [place] [address] 29671- 9315 July, [facility] [place] [address] 67861- 7499 July, Chronic constipation K59.09 [facility] [place] [id number] [place] [address] 66872- 2357 Jun, [facility] [place] [id number] [place] [address] 86157- 2450 Jun, [facility] [place] [id number] [place] [address] 18859- 3871 14 Jun, 2015 Osteoarthritis of left knee M17.9 [facility] [place] [id number] [place] [address] 11649- 6259 Jun, [facility] [place] [id number] [place] [address] 48920- 0192 Jun, Generalized anxiety disorder F41.1 ; Bipolar disorder, unspecified F31.9 and Major depressive disorder, recurrent, moderate F33.1 [facility] [place] [id number] [place] [address] 69745- 6062 Jun, Migraine G43.909 [facility] [place] [id number] [place] [address] 83228- 1651 07 Jun, 2015 Left knee pain M25.562 ; Chronic constipation K59.09 ; Dry mouth R68.2 ; Yeast vaginitis B37.3 and Memory loss R41.3 [facility] [place] [address] [id number] [address] Jun, [facility] [place] [id number] [place] [address] 62871- 0937 May, [facility] [place] [address], [place] [address] 2428 May, [facility] [place] [id number] [place] [address] 04209- 0418 May, [facility] [place] [id number] [place] [address] 37494- 1175 May, [facility] [id number] [place] [address] 24498- 7009 May, Acute bronchitis with COPD J44.0 ; Knee pain, left M25.562 and Encounter for tobacco use cessation counseling Z71.6 [facility] [id number] [place] [address] 23451- 5017 May, [facility] [id number] [place] [address] 00565- 1552 Apr, Diabetes E11.9 ; TMJ (sprain of temporomandibular joint) S03.4XXA ; Tobacco abuse Z72.0 ; Migraine G43.909 and Anxiety F41.9 [facility] [address] [address] 9145 Apr, Generalized anxiety disorder F41.1 and Bipolar disorder, unspecified F31.9 [facility] [address], [place] [address]- 5293 Apr, Major depressive disorder, recurrent, moderate F33.1 ; Anxiety disorder, unspecified F41.9 and 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 [facility] [place] [address] [address] 4201 Apr, [facility] [place] [id number] [place] [address] 46011- 3759 Mar, [facility] [place] [id number] [place] [address] 41429- 5554 Feb, [facility] [place] [id number] [place] [address] 65872- 4811 Feb, Major depressive disorder, recurrent, moderate F33.1 ; Anxiety disorder, unspecified F41.9 and 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 [facility] [place] [id number] [place] [address] 91325- 3372 Feb, [facility] [place] [id number] [place] [address] 55125- 8944 Feb, Generalized anxiety disorder F41.1 and Bipolar disorder, unspecified F31.9 [place] [id number] [place] [address] 85630- 0870 Jan, [facility] [id number] [place] [address] 12432- 0092 Jan, [facility] [id number] [place] [address] 57712- 3642 Jan, Bipolar disorder, unspecified F31.9 and Generalized anxiety disorder F41.1 [facility] [id number] [place] [address] 07673- 8040 Dec, [facility] [id number] [place] [address] 26155- 1137 Dec, Bipolar disorder, unspecified F31.9 and Generalized anxiety disorder F41.1 [facility] [id number] [place] [address] 44073- 6146 Dec, Generalized anxiety disorder F41.1 and Major depressive disorder, recurrent, moderate F33.1 [facility] [place] [id number] [place] [address] 87563- 6650 Oct, Headache 784.0 ; Cough 786.2 ; Vomiting and diarrhea 787.03 and Dysuria 788.1 [place] [address], [place] [address]- 3489 Aug, [facility] [address], [place] [address]- 0179 Aug, Headache 784.0 and Shortness of breath 786.05 [facility] [address], [place] [address]- 1130 Aug, [facility] [id number] [address]- 2002 Aug, Migraine 346.90 [facility] [id number] [address]- 9636 Jun, [facility] [id number] [place] [address] 46984- 0389 Jun, [facility] [address], [place] [address]- 9459 May, [facility] [address], [place] [address]- 8792 May, [facility] [address], [place] [address]- 6401 May, [facility] [address], [place] [address]- 6970 May, [facility] [address], [place] [address]- 7777 May, [facility] [address], [place] [address]- 4181 May, [facility] [address], [place] [address]- 6232 Apr, [facility] [address] 8581 Apr, [facility] [address], [place] [address]- 6346 Apr, [facility] [id number] [address]- 8730 04 Apr, [address] [facility] [address] [id number] [place] [address]- 2341 Apr, [facility] [address] [id number] [place] [address]- 1826 Mar, [facility] [address] [id number] [place] [address]- 9650 Mar, [facility] [place] [facility] [address] [id number] [place] [address]- 2626 Mar, [facility] [address] [id number] [place] [address]- 4771 Mar, [facility] [address] [id number] [place] [address]- 3268 Feb, [facility] [address] [id number] [place] [address]- 4377 Feb, [facility] [address] [id number] [place] [address]- 2055 Feb, [facility] [address] [id number] [place] [address]- 9113 Feb, [facility] [address] [id number] [place] [address]- 0082 16 Feb, 2014 [facility] [place] [facility] [address] [id number] [place] [address]- 7621 Feb, [facility] [place] [facility] [address] [id number] [place] [address]- 4012 Feb, [facility] [place] [facility] [address] [id number] [place] [address]- 9759 Feb, [facility] [place] [facility] [address] [id number] [place] [address]- 5606 Feb, [facility] [place] [facility] [address] [id number] [place] [address]- 8583 Feb, [facility] [place] [facility] [address] [id number] [place] [address]- 4938 Feb, [facility] [place] [facility] [address] [id number] [place] [address]- 3710 Feb, [facility] [place] [facility] [address] [id number] [place] [address]- 7422 Jan, [facility] [place] [facility] [address] [id number] [place] [address]- 7099 Jan, [facility] [place] [facility] [address] [id number] [place] [address]- 4695 Dec, [facility] [place] [facility] [address] [id number] [place] [address]- 8143 Dec, [facility] [place] [facility] [address] [id number] [place] [address]- 9952 Dec, [facility] [place] [facility] [address] [id number] [place] [address]- 7475 Dec, [facility] [place] [facility] [address] [id number] [place] [address]- 6962 Dec, [facility] [place] [facility] [address] [id number] [place] [address]- 1974 Dec, [facility] [place] [facility] [address] [id number] [place] [address]- 3417 Sep, [facility] [place] [facility] [address] [id number] [place] [address]- 2437 Sep, [facility] [place] [facility] [address] [id number] [place] [address]- 6879 Sep, [facility] [place] [facility] [address] [id number] [place] [address]- 3302 Sep, [facility] [place] [facility] [address] [id number] [place] [address]- 9858 Sep, [facility] [place] [facility] [address] [id number] [place] [address]- 4801 14 Sep, 2013 [facility] [place] [facility] [address] [id number] [place] [address]- 5062 07 Sep, 2013 [facility] [place] [facility] [address] [id number] [place] [address]- 5976 Sep, [facility] [place] [facility] [address] [id number] [place] [address]- 1721 Sep, 2013 [facility] [place] [facility] [address] [id number] [place] [address]- 6659 Sep, [facility] [place] [facility] [address] [id number] [place] [address]- 2075 24 Aug, 2013 [facility] [place] [facility] [address] [id number] [place] [address]- 2780 Aug, [facility] [place] [facility] [address] [id number] [place] [address]- 2382 Aug, [facility] [place] [facility] [address] [id number] [place] [address]- 4329 Aug, [facility] [place] [facility] [address] [id number] [place] [address]- 7530 Aug, [facility] [place] [facility] [address] [id number] [place] [address]- 3696 Aug, [facility] [place] [facility] [address] [id number] [place] [address]- 8186 Aug, [facility] [place] [facility] [address] [id number] [place] [address]- 7817 Aug, [facility] [place] [facility] [address] [id number] [place] [address]- 1279 Aug, [facility] [place] [facility] [address] [id number] [place] [address]- 9336 Aug, [facility] [place] [facility] [address] [id number] [place] [address]- 0974 05 Aug, 2013 [facility] [place] [facility] [address] [id number] [place] [address]- 8840 Aug, [facility] [place] [facility] [address] [id number] [place] [address]- 0877 Aug, [facility] [place] [facility] [address] [id number] [place] [address]- 6771 July, [facility] [place] [facility] [address] [id number] [place] [address]- 9427 July, [facility] [place] [facility] [address] [id number] [place] [address]- 3794 July, [facility] [place] [facility] [address] [id number] [place] [address]- 4820 July, [facility] [place] [facility] [address] [id number] [place] [address]- 8169 July, [facility] [place] [facility] [address] [id number] [place] [address]- 1281 July, [facility] [place] [facility] [address] [id number] [place] [address]- 7423 July, [facility] [place] [facility] [address] [id number] [place] [address]- 3460 Jun, [facility] [place] [facility] [address] [id number] [place] [address]- 0962 Jun, [facility] [place] [facility] [address] [id number] [place] [address]- 9596 Jun, [facility] [place] [facility] [address] [id number] [place] [address]- 5860 Jun, [facility] [place] [facility] [address] [id number] [place] [address]- 2531 Jun, [facility] [place] [facility] [address] [id number] [place] [address]- 4648 Jun, [facility] [place] [facility] [address] [id number] [place] [address]- 1977 08 Jun, 2013 [facility] [place] [facility] [address] [id number] [place] [address]- 3213 17 May, 2013 [facility] [place] [facility] [address] [id number] [place] [address]- 3899 17 May, 2013 [facility] [place] [facility] [address] [id number] [place] [address]- 0874 14 May, 2013 [facility] [place] [facility] [address] [id number] [place] [address]- 5154 14 May, 2013 [facility] [place] [facility] [address] [id number] [place] [address]- 6817 13 May, 2013 [facility] [place] [facility] [address] [facility] [id number] [place] [address]- 7194 13 May, 2013 [facility] [place] [facility] [address] [id number] [place] [address]- 2821 10 May, 2013 [facility] [place] [facility] [address] [id number] [place] [address]- 6397 10 May, 2013 [facility] [place] [facility] [address] [id number] [place] [address]- 0902 07 May, 2013 [facility] [place] [facility] [address] [facility] [id number] [place] [address]- 1712 26 Apr, 2013 [facility] [place] [facility] [address] [id number] [place] [address]- 9766 26 Apr, 2013 [facility] [place] [facility] [address] [id number] [place] [address]- 5142 18 Apr, 2013 [facility] [place] [facility] [address] [id number] [place] [address]- 3056 15 Apr, 2013 [facility] [place] [facility] [address] [id number] [place] [address]- 8098 15 Apr, 2013 [facility] [place] [facility] [address] [facility] [id number] [place] [address]- 5351 11 Apr, 2013 [facility] [place] [facility] [address] [id number] [place] [address]- 0727 Apr, [facility] [place] [facility] [address] [id number] [place] [address]- 7597 Apr, [facility] [place] [facility] [address] [id number] [place] [address]- 3574 Apr, [facility] [place] [facility] [address] [id number] [place] [address]- 2163 Apr, [facility] [place] [facility] [address] [id number] [place] [address]- 7607 Mar, [facility] [place] [facility] [address] [id number] [place] [address]- 9819 Mar, [facility] [place] [facility] [address] [id number] [place] [address]- 2278 Mar, [facility] [place] [facility] [address] [id number] [place] [address]- 1894 Mar, [facility] [place] [facility] [address] [id number] [place] [address]- 1185 Mar, [facility] [place] [facility] [address] [id number] [place] [address]- 3846 Mar, [facility] [place] [facility] [address] [id number] [place] [address]- 6422 Mar, [facility] [place] [facility] [address] [id number] [place] [address]- 6141 Mar, [facility] [place] [facility] [address] [id number] [place] [address]- 4954 Feb, [facility] [place] [facility] [address] [id number] [place] [address]- 1962 Feb, [facility] [place] [facility] [address] [id number] [place] [address]- 1816 Jan, [facility] [place] [facility] [address] [id number] [place] [address]- 7567 18 Jan, 2013 [facility] [place] [facility] [address] [id number] [place] [address]- 4888 15 Jan, 2013 [facility] [place] [facility] [address] [id number] [place] [address]- 1845 15 Jan, 2013 [facility] [place] [facility] [address] [id number] [place] [address]- 5501 Jan, [facility] [place] [facility] [address] [id number] [place] [address]- 0033 Jan, [facility] [place] [facility] [address] [id number] [place] [address]- 8620 Jan, [facility] [place] [facility] [address] [id number] [place] [address]- 2226 Jan, [facility] [place] [facility] [address] [id number] [place] [address]- 4122 Dec, [facility] [place] [facility] [address] [id number] [place] [address]- 4481 Dec, [facility] [place] [facility] [address] [id number] [place] [address]- 3276 10 Dec, 2012 [facility] [place] [facility] [address] [id number] [place] [address]- 1507 20 Nov, 2012 [facility] [place] [facility] [address] [id number] [address]- 2228 13 Nov, 2012 [facility] [place] [facility] [address] [id number], [place] [address]- 1089 12 Sep, 2012 [facility] [place] [facility] [address] [id number] [place] [address]- 8413 09 Sep, 2012 [facility] [place] [facility] [address] [id number] [place] [address]- 6019 06 Sep, 2012 [facility] [place] [facility] [address] [id number] [place] [address]- 3821 06 Sep, 2012 [facility] [place] [facility] [address] [id number] [place] [address]- 2783 Oct, [facility] [address] [id number] [place] [address]- 2925 Oct, [facility] [place] [facility] [address] [id number] [place] [address]- 2678 Sep, [facility] [address] [id number] [place] [address]- 3220 Sep, [facility] [address] [id number] [place] [address]- 3407 Sep, [facility] [address] [id number] [place] [address]- 7688 Sep, [facility] [address] [id number] [place] [address]- [address] Sep, [facility] [address] [id number] [place] [address]- 8112 Sep, [facility] [address] [id number] [place] [address]- 7655 Sep, [facility] [address] [id number] [place] [address]- 5991 Aug, [facility] [address] [id number] [place] [address]- 8280 Aug, [facility] [place] [facility] [address] [id number] [place] [address]- 0465 Aug, [facility] [place] [facility] [address] [id number] [place] [address]- 0499 Aug, [facility] [place] [facility] [address] [id number] [place] [address]- 6625 Aug, [facility] [place] [facility] [address] [id number] [place] [address]- 1776 Aug, [facility] [place] [facility] [address] [id number] [place] [address]- 3393 July, [facility] [address] [id number] [place] [address]- 3314 July, [facility] [address] [id number] [place] 0717 July, [facility] [address] [id number] [place] 1888 July, [facility] [address] [id number] [place] [address]- 0307 July, [facility] [address] [id number] [place] [address]- 7548 July, [facility] [address] [id number] [place] [address]- 6032 Jun, [facility] [address] [id number] [place] [address]- 0081 Jun, [facility] [address] [id number] [place] [address]- 7506 Jun, [facility] [address] [id number] [place] [address]- 4231 Jun, [facility] [address] [id number] [place] [address]- 5106 Jun, [facility] [place] [facility] [address] [id number] [place] [address]- 8684 Jun, [facility] [place] [facility] [address] [id number] [place] [address]- 3174 Jun, [facility] [place] [facility] [address] [id number] [place] [address]- 0632 May, [facility] [place] [facility] [address] [id number] [place] [address]- 7837 May, [facility] [place] [facility] [address] [id number] [place] 3305 Apr, [facility] [place] [facility] [address] [id number] [place] [address]- 1660 19 Apr, 2012 [facility] [address] [id number] [place] [address]- 7326 18 Apr, 2012 [facility] [place] [facility] [address] [id number] [place] [address] 2546 18 Apr, 2012 [facility] [place] [facility] [address] [id number] [place] [address]- 2056 12 Apr, 2012 [facility] [place] [facility] [address] [id number] [place] [address] 2545 08 Apr, 2012 [facility] [place] [facility] [address] [id number] [place] [address]- 7886 07 Apr, 2012 [facility] [place] [facility] [address] [id number] [place] [address]- 3536 07 Apr, 2012 [facility] [place] [facility] [address] [id number] [place] [address] 2546 06 Apr, 2012 [facility] [place] [facility] [address] [id number] [place] [address] 8[address] 06 Apr, 2012 [facility] [place] [facility] [address] [id number] [place] [address]80 03 Apr, 2012 [facility] [place] [facility] [address] [id number] [place] [address] Mar, [facility] [place] [facility] [address] [id number] [place] [address] Mar, [facility] [place] [facility] [address] [id number] [place] [address] 2540 Mar, [facility] [place] [facility] [address] [id number] [place] [address] 2546 Mar, [facility] [place] [facility] [address] [id number] [place] [address] Mar, [facility] [place] [facility] [address] [id number] [place] [address]- 4460 15 Mar, 2012 [facility] [address] [id number] [place] [address]- 2366 15 Mar, 2012 [facility] [place] [facility] [address] [id number] [place] [address]- 3031 15 Mar, 2012 [facility] [place] [facility] [address] [id number] [place] [address]- [address]267 09 Mar, 2012 [facility] [place] [facility] [address] [id number] [place] [address]- 7942 Mar, [facility] [address] [id number] [place] [address]- [address]180 Mar, [facility] [place] [facility] [address] [id number] [place] [address] 9831 Mar, [facility] [place] [facility] [address] [id number] [place] [address] Mar, [facility] [place] [facility] [address] [id number] [place] [address]- [address] Feb, [facility] [place] [facility] [address] [id number] [place] [address]- 3960 Feb, [facility] [place] [facility] [address] [id number] [place] [address] 3996 18 Feb, 2012 [facility] [place] [facility] [address] [id number] [place] [address] 5129 18 Feb, 2012 [facility] [place] [facility] [address] [id number] [address] 11 Feb, 2012 [facility] [place] [facility] [address] [id number] [place] [address]- 7069 11 Feb, 2012 [facility] [place] [facility] [address] [id number] [place] [address]- 8689 10 Feb, 2012 [facility] [place] [facility] [address] [id number] [place] [address]- 0108 10 Feb, 2012 [facility] [place] [facility] [address] [id number] [place] [address] 8133 Feb, [facility] [place] [facility] [address] [id number] [place] [address] 9616 Feb, [facility] [place] [facility] [address] [id number] [place] [address] Feb, [facility] [place] [facility] [address] [id number] [place] [address]- [address]166 Feb, [facility] [place] [facility] [address] [id number] [place] [address]- [address] Feb, [facility] [place] [facility] [address] [id number] [place] [address] 1900 Feb, [facility] [place] [facility] [address] [id number] [place] [address]- 45[address] Feb, [facility] [place] [facility] [address] [id number] [place] [address]- [address] Jan, [facility] [place] [facility] [address] [id number] [place] [address]- 1271 Jan, [facility] [place] [facility] [address] [id number] [place] [address] Jan, [facility] [place] [facility] [address] [facility] [id number] [place] [address] 34[address] Jan, [facility] [place] [facility] [address] [id number] [place] [address] 4034 Dec, [facility] [place] [facility] [address] [id number] [place] [address]- [address]256 Dec, [facility] [place] [facility] [address] [id number] [place] [address] 9894 Dec, [facility] [place] [facility] [address] [id number] [place] [address]- 1756 Dec, [facility] [place] [facility] [address] [id number], [place] [address] Dec, [facility] [place] [facility] [address] [id number] [place] [address]- [address] 25 Dec, 2011 [facility] [place] [facility] [address] [id number] [place] [address]- 0359 16 Dec, 2011 [facility] [place] [facility] [address] [id number] [place] [address]- 8718 16 Dec, 2011 [facility] [place] [facility] [address] [id number] [place] [address]- 2470 07 Dec, 2011 [facility] [place] [facility] [address] [id number] [place] [address]- 0421 04 Dec, 2011 [facility] [place] [facility] [address] [id number] [place] [address]- 8772 03 Dec, 2011 [facility] [place] [facility] [address] [id number] [place] [address]- 0188 25 Sep2011 [facility] [place] [facility] [address] [id number] [place] [address]- 5761 24 Sep, 2011 [facility] [place] [facility] [address] [id number] [place] [address]- 7077 20 Sep, 2011 [facility] [place] [facility] [address] [id number] [place] [address]- 5600 19 Sep, 2011 [facility] [place] [facility] [address] [id number] [place] [address]- 8972 17 Sep, 2011 [facility] [place] [facility] [address] [id number] [place] [address]- 0633 16 Sep, 2011 [facility] [place] [facility] [address] [id number] [place] [address]- 2979 14 Sep, 2011 [facility] [place] [facility] [address] [id number] [place] [address]- 2549 13 Sep, 2011 [facility] [place] [facility] [address] [id number] [place] [address]- 9843 12 Sep, 2011 [facility] [place] [facility] [address] [id number] [place] [address]- 5847 07 Nov, 2011 [facility] [place] [facility] [address] [id number] [place] [address]- 1421 06 Nov, 2011 [facility] [place] [facility] [address] [id number] [place] [address]- 1596 06 Nov, 2011 [facility] [place] [facility] [address] [id number] [place] [address]- 9834 Nov, [facility] [place] [facility] [address] [id number] [place] [address]- 2071 Oct, [facility] [place] [facility] [address] [id number] [place] [address] Oct, [facility] [place] [facility] [address] [id number] [place] [address] Oct, [facility] [place] [facility] [address] [id number] [place] [address] Oct, [facility] [place] [facility] [address] [id number] [place] [address] Oct, [facility] [place] [facility] [address] [id number] [place] [address] Oct, [facility] [place] [facility] [address] [id number] [place] [address] Oct, [facility] [place] [facility] [address] [id number] [place] [address] 16 Oct, 2011 [facility] [place] [facility] [address] [id number] [place] [address] 15 Oct, 2011 [facility] [place] [facility] [address] [id number] [place] [address] 13 Oct, 2011 [facility] [place] [facility] [address] [id number] [place] [address] Oct, [facility] [place] [facility] [address] [id number] [place] [address] Sep, [facility] [place] [facility] [address] [id number] [place] [address] Sep, [facility] [address] [id number] [place] [address] Sep, [facility] [address] [id number] [place] [address] Sep, [facility] [address] [id number] [place] [address] Sep, [facility] [address] [id number] [place] [address]233 Sep, [facility] [address] [id number] [place] [address] Aug, [facility] [address] [id number] [place] [address] July, [facility] [address] [id number] [place] [address] July, [facility] [address] [id number] [place] [address] Jun, [facility] [address] [id number] [place] [address]163 Jun, [facility] [address] [id number] [place] [address] [address] Jun, [facility] [address] [id number] [place] [address] 3540 Jun, [facility] [address] [id number] [place] [address]117 Jun, [facility] [place] [facility] [address] [id number] [place] [address] 4707 Jun, [facility] [address] [id number] [place] [address] [address] Jun, [facility] [address] [id number] [place] [address]74 08 Jun, 2011 [facility] [place] [facility] [address] [id number] [place] [address]- [address] Jun, [facility] [place] [facility] [address] [id number] [place] [address]- [address] Jun, [facility] [place] [facility] [address] [id number] [place] [address]776 Jun, [facility] [place] [facility] [address] [id number] [place] [address]26 19 May, 2011 [facility] [place] [facility] [address] [id number] [place] [address] 6829 16 May, 2011 [facility] [place] [facility] [address] [id number] [place] [address]6 14 May, 2011 [facility] [place] [facility] [address] [facility] [id number] [place] [address] May, [facility] [place] [facility] [address] [id number] [place] [address] 3831 Apr, [facility] [place] [facility] [address] [id number] [place] [address]- 9485 Apr, [facility] [place] [facility] [address] [facility] [id number] [place] [address] Apr, [facility] [place] [facility] [address] [facility] [id number] [place] [address] 76[address] Apr, [facility] [place] [facility] [address] [id number] [place] [address]30 Apr, [facility] [place] [facility] [address] [id number] [place] [address]247 Apr, [facility] [place] [facility] [address] [id number] [place] [address] 5716 Apr, [facility] [place] [facility] [address] [id number] [address] Apr, [facility] [place] [facility] [address] [id number] [place] [address] Mar, [facility] [address] [id number] [place] [address]276 Mar, [facility] [address] [id number] [place] [address] 68[address] Mar, [facility] [address] [id number] [place] [address] 3675 18 Mar, [address] [facility] [address] [id number] [place] [address] 6077 17 Mar, [address] [facility] [address] [id number] [place] [address]- 2814 Mar, [facility] [address] [id number] [place] [address] 7102 Mar, [facility] [address] [id number] [place] [address] 5277 Mar, [facility] [address] [id number] [place] [address]- 6255 Mar, [facility] [address] [id number] [place] [address] 4238 Mar, [facility] [address] [id number] [place] [address] Mar, [facility] [address] [id number] [place] [address]- 1053 Mar, [facility] [address] [id number] [place] [address]116 Mar, [facility] [address] [id number] [place] [address]- 3344 Mar, [facility] [address] [id number] [place] [address]- 3847 Mar, [facility] [address] [id number] [place] [address] 6139 Mar, [facility] [place] [facility] [address] [id number] [place] [address] 8357 Feb, [facility] [place] [facility] [address] [id number] [place] [address] 3886 Feb, [facility] [place] [facility] [address] [id number] [place] [address]- 2356 Feb, [facility] [place] [facility] [address] [id number] [place] [address]- 6488 Jan, [facility] [place] [facility] [address] [id number] [place] [address]- 2782 Jan, [facility] [place] [facility] [address] [id number] [place] [address]- 1026 Jan, [facility] [place] [facility] [address] [id number] [place] [address]- 0370 Dec, [facility] [place] [facility] [address] [id number] [place] [address]- 2565 Dec, [facility] [place] [facility] [address] [id number] [place] [address] 7896 Nov, [facility] [place] [facility] [address] [id number] [place] [address]- 9121 Oct, [facility] [place] [facility] [address] [id number] [place] [address]- 2039 Oct, [facility] [place] [facility] [address] [id number] [address] Oct, [facility] [place] [facility] [address] [id number] [place] [address]- 5740 Sep, [facility] [place] [facility] [address] [id number] [place] [address]- 2326 Apr, [facility] [place] [facility] [address] [id number] [place] [address]- 8198 Feb, [facility] [place] [facility] [address] [id number], [place] [address] Jan, IMMUNIZATIONS No Known Immunizations SOCIAL HISTORY Never Assessed REASON FOR VISIT PALS IN-Advair/Vent PLAN OF CARE VITAL SIGNS MEDICATIONS No Known Medications RESULTS No Results PROCEDURES No Known procedures INSTRUCTIONS MEDICATIONS ADMINISTERED No Known Medications MEDICAL (GENERAL) HISTORY Type Description Date Medical History COPD Medical History asthma Medical History heart cath Medical History Social phobia Medical History MRSA in right lung Medical History diabetes Surgical History heart cath 03/2015 Hospitalization History for surgeries Hospitalization History AMS 2/2 Benzos OD, pneumonia MRSA, [facility], Hypokalemia-- [facility] 12/20/2015 Hospitalization History COPD exacerbation, Asthma[facility] 09/21/16 Hospitalization History COPD[facility] 12/30/2016 Hospitalization History [facility] for inpatient-last around 2006 or so. Hospitalization History for COPD x2 Mar 2017 Hospitalization History Upper GI bleed at apr 2017
--- OUTSIDE RECORDS SUMMARY | 2017-08-04 18:07 | XMS REPORT ---
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 Active Problem Thrush B37.0 Active 02635221 Problem TMJ (sprain of temporomandibular joint) S03.4XXA Active 24308335 Problem Tobacco abuse Z72.0 Active 81420733 Problem Non morbid obesity due to excess calories E66.09 Active 363902314 Problem Migraine G43.909 Active 77954018 Problem History of MRSA infection Z86.14 Active 120082843 Problem Knee pain, left M25.562 Active 41620378 Problem Obesity, unspecified obesity severity, unspecified obesity type E66.9 Active 800731872 Problem Migraine without aura and without status migrainosus, not intractable G43.009 Active 440876358 Problem Other emphysema J43.8 Active 65877822 Problem Chronic obstructive pulmonary disease with acute exacerbation J44.1 Active 711458667 Problem Intractable cyclical vomiting with nausea G43.A1 Active 54244636 Problem Chronic constipation K59.09 Active 170917657 Problem Acute bronchitis with COPD J44.0 Active [id number] Problem Encounter for tobacco use cessation counseling Z71.6 Active 084128518 Problem Methamphetamine use disorder, moderate, 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 Active 85890352 Problem Chronic bronchitis, unspecified chronic bronchitis type J42 Active 18698576 Problem Viral illness B34.9 Active 94759860 Problem Diabetes E11.9 Active 484397898 Problem Memory loss R41.3 Active 68637813 Problem Left knee pain M25.562 Active 46361718 Problem Dry mouth R68.2 Active 59017049 Problem Yeast vaginitis B37.3 Active 59813590 Problem Generalized anxiety disorder F41.1 Active 13625831 Problem Bipolar disorder with depression F31.30 Active 24791845 Problem Bipolar disorder, unspecified F31.9 Active 68223539 Problem Bipolar disorder, current episode depressed, severe, without psychotic features F31.4 Active 93860942 ALLERGIES No Information ENCOUNTERS Encounter Location Date Diagnosis [facility] [address] [address]- [address] July, Diabetes E11.9 and Chronic obstructive pulmonary disease with acute exacerbation J44.1 [place] [address] [address]- 1754 Jun, Chronic obstructive pulmonary disease with acute exacerbation J44.1 ; Diabetes E11.9 and Tobacco abuse Z72.0 [place] [address] [address]24- 8783 Jun, [facility] [id number] [place] [address] 28885- 2088 Jun, [facility] [address] 34242- 0304 May, [facility] [id number] [place] [address] 67821- 3787 May, [facility] [id number] [place] [address] 97606 -0418 17 May, 2017 [facility] [id number] [place] [address] 86407- 6033 16 May, 2017 [facility] [address] 78620- 2558 15 May, 2017 [facility] [id number] [place] [address] 61271- 5443 14 May, 2017 Diarrhea, unspecified type R19.7 and Intractable cyclical vomiting with nausea G43.A1 [facility] [id number] [place] [address] 23173- 6583 12 May, 2017 [facility] [address] 04605- 2204 05 May, 2017 [facility] [id number] [place] [address] 16915- 0974 28 Apr, 2017 COPD exacerbation J44.1 ; Esophageal candidiasis B37.81 ; Other acute gastritis with hemorrhage K29.01 and Acute posthemorrhagic anemia D62 [facility] [address] 02188- 8277 Apr, Viral illness B34.9 and COPD exacerbation J44.1 [facility] [id number] [place] [address] 81463 -2228 19 Apr, 2017 Shortness of breath R06.02 and Pneumonia of both lower lobes due to infectious organism J18.9 [facility] [address] 42651 -6051 Mar, COPD with acute exacerbation J44.1 [place] [address] 21389- 3858 Mar, Chronic obstructive pulmonary disease with acute exacerbation J44.1 and Diabetes E11.9 [place] [id number] [place] [address] 57708- 5775 Mar, [facility] [address] 38782- 4183 Mar, [facility] [id number] [place] [address] 31426 -4930 Mar, COPD exacerbation J44.1 [place] [address] 21648- 6936 Mar, [place] [id number] [place] [address] 18376- 8466 Mar, Migraine G43.909 ; Hypokalemia E87.6 and Type 2 diabetes mellitus without complications E11.9 [facility] [address] [place] [address] 69349- 9772 Feb, [facility] [id number] [place] [address] 05199- 1263 Feb, [facility] [id number] [place] [address] 88511- 3440 Feb, Methamphetamine use disorder, moderate, 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 ; Major depressive disorder, recurrent, moderate F33.1 ; Anxiety disorder, unspecified F41.9 and Tobacco abuse Z72.0 [place] [id number] [place] [address] 54888- 5019 30 Jan, 2017 Major depressive disorder, recurrent, moderate F33.1 [place] [id number] [place] [address] 09576- 6303 16 Jan, 2017 [facility] [id number] [place] [address] 73535- 5860 Jan, [facility] [id number] [place] [address] 31647- 7423 Jan, Major depressive disorder, recurrent, moderate F33.1 [place] [id number] [place] [address] 96268- 7275 Jan, Major depressive disorder, recurrent, moderate F33.1 ; Anxiety disorder, unspecified F41.9 ; Methamphetamine use disorder, moderate, 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 and Tobacco abuse Z72.0 [facility] [address] [place] [address] 91567- 8442 Jan, [place] [id number] [place] [address] 39362- 8680 Jan, Chronic obstructive pulmonary disease with acute exacerbation J44.1 and Diabetes E11.9 [facility] [id number] [place] [address] 91667- 4313 Jan, [facility] [id number] [place] [address] 05112- 9317 Jan, [facility] [address] [address] 1713 Dec, Acute respiratory failure with hypoxia J96.01 ; Chronic bronchitis, unspecified chronic bronchitis type J42 and Tobacco use Z72.0 [facility] [id number] [place] [address] 00348- 7937 Dec, [facility] [id number] [place] [address] [id number] Nov, Dental caries K02.9 and Dental examination Z01.20 [facility] [id number] [place] [address] 24581- 1477 Nov, Major depressive disorder, recurrent, moderate F33.1 ; Anxiety disorder, unspecified F41.9 and 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 [facility] [id number] [place] [address] [id number] Oct, Dental examination Z01.20 [facility] [id number] [place] [address] 28065- 6296 Oct, [facility] [id number] [place] [address] 01188- 2086 Oct, Diabetes E11.9 and Thrush B37.0 [facility] [id number] [place] [address] 70290- 7014 Oct, [facility] [id number] [place] [address] 88639- 7599 Oct, [facility] [address] [place] [address] 20243- 7672 Oct, [facility] [id number] [place] [address] 45600- 1234 Sep, Major depressive disorder, recurrent, moderate F33.1 ; Anxiety disorder, unspecified F41.9 and Bipolar disorder, unspecified F31.9 [facility] [id number] [address]- 1[address] Sep, Acute exacerbation of chronic obstructive pulmonary disease (COPD) J44.1 and Migraine G43.909 [facility] [id number] [place] [address] 88754- 1221 Sep, [facility] [id number] [place] [address] [id number] Sep, [facility] [id number] [place] [address] 67348- 9916 Sep, Acute exacerbation of chronic obstructive pulmonary disease (COPD) J44.1 [facility] [id number] [place] [address] 87090 -4438 Sep, Acute exacerbation of chronic obstructive pulmonary disease (COPD) J44.1 [facility] [id number] [place] [address] 95253- 5684 Aug, [facility] [id number] [place] [address] 13893- 4818 Aug, Major depressive disorder, recurrent, moderate F33.1 ; Anxiety disorder, unspecified F41.9 and 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 [facility] [address] [place] [address] 87836- 0449 Aug, Wheezing R06.2 ; Non morbid obesity due to excess calories E66.09 ; Migraine without aura and without status migrainosus, not intractable G43.009 and Tobacco abuse Z72.0 [facility] [address] [place] [address] [id number] 14 Aug, 2016 Encounter for dental examination Z01.20 [facility] [id number] [place] [address] 63380- 3718 02 Aug, 2016 Major depressive disorder, recurrent, moderate F33.1 ; Anxiety disorder, unspecified F41.9 and 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 [facility] [id number] [place] [address] 82393- 8201 July, [facility] [id number] [place] [address] 79889- 4577 July, [facility] [id number] [place] [address] 53181- 3162 July, [facility] [id number] [place] [address] 43500- 6583 July, Diabetes E11.9 [facility] [id number] [place] [address] 68940- 8733 Jun, Major depressive disorder, recurrent, moderate F33.1 [place] [id number] [place] [address] 08101- 3488 Jun, Major depressive disorder, recurrent, moderate F33.1 ; 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 ; Generalized anxiety disorder F41.1 and Bipolar disorder, unspecified F31.9 [place] [id number] [place] [address] 35272- 0023 Jun, Diabetes E11.9 ; Migraine G43.909 ; Thrush B37.0 and Wheezing R06.2 [facility] [address] [id number] Jun, Dental examination Z01.20 [facility] [id number] [place] [address] 20255- 9446 Jun, [facility] [id number] [place] [address] 47717- 5315 Jun, Major depressive disorder, recurrent, moderate F33.1 ; Anxiety disorder, unspecified F41.9 and 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 [facility] [id number] [place] [address] 85952- 1979 Jun, [facility] [id number] [place] [address] 25718- 9040 Jun, Wheezing R06.2 [facility] [address] [place] [id number] Jun, Dental caries K02.9 [place] [address] 25371- 5398 Jun, Major depressive disorder, recurrent, moderate F33.1 ; Anxiety disorder, unspecified F41.9 and 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 [place] [address] 25373- 1056 Jun, RLQ abdominal pain R10.31 ; Diabetes E11.9 ; Obesity, unspecified obesity severity, unspecified obesity type E66.9 ; Wheezing R06.2 and Abnormal urinalysis R82.90 [place] [address] 75484- 9216 May, [place] [address] 86442- 3525 May, Well woman exam Z01.419 ; Breast cancer screening Z12.39 ; Cervical cancer screening Z12.4 ; Urinary frequency R35.0 ; Edema, unspecified type R60.9 and Chronic constipation K59.09 [place] [address] 91383- 9702 May, Major depressive disorder, recurrent, moderate F33.1 ; Anxiety disorder, unspecified F41.9 and 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 [facility] [address] [id number] May, Dental examination Z01.20 [place] [id number] [place] [address] 91101- 2069 May, [place] [address] 71085- 4231 May, [place] [id number] [place] [address] 51466- 7453 May, Chronic constipation K59.09 [place] [address] 07856- 3304 Apr, [place] [address] [address]- 2769 Apr, Major depressive disorder, recurrent, moderate F33.1 ; Anxiety disorder, unspecified F41.9 and 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 [place] [address] [address]- 4892 Apr, [place] [address] [place] [address] 87649- 1908 Mar, Major depressive disorder, recurrent, moderate F33.1 [place] [id number] [place] [address] 00195- 0258 Mar, Major depressive disorder, recurrent, moderate F33.1 ; Generalized anxiety disorder F41.1 and Bipolar I disorder, most recent episode depressed with anxious distress F31.30 [address] [place] [address] 00551- 0462 Mar, Diabetes E11.9 ; Non morbid obesity due to excess calories E66.09 ; Breast cancer screening Z12.39 and Encounter for immunization Z23 [address] [place] [address] 24052- 8372 Mar, Major depressive disorder, recurrent, moderate F33.1 ; Anxiety disorder, unspecified F41.9 and 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 [place] [address] [place] [address] 80751- 4070 Mar, [place] [address] [place] [address] 75157- 9510 Feb, Major depressive disorder, recurrent, moderate F33.1 ; Anxiety disorder, unspecified F41.9 and 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 [place] [address] [address]- 6997 Feb, [place] [id number] [address]- 4237 Feb, [facility] [id number] [place] [address] 86828- 6346 Jan, Major depressive disorder, recurrent, moderate F33.1 ; Generalized anxiety disorder F41.1 and Bipolar disorder, current episode depressed, severe, without psychotic features F31.4 [facility] [id number] [place] [address] 67547- 5292 Jan, Major depressive disorder, recurrent, moderate F33.1 ; Anxiety disorder, unspecified F41.9 and 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 [facility] [id number] [place] [address] 64973- 9437 Jan, Bronchitis J40 [facility] [id number] [place] [address] 52763- 5633 Jan, [facility] [id number] [place] [address] 52908- 8703 Jan, [facility] [id number] [place] [address] 82487- 3777 Jan, Elbow injury, right, initial encounter S59.901A ; Multiple contusions T14.8 and Cervical strain, acute, initial encounter S16.1XXA [facility] [id number] [place] [address] 96872- 8768 Dec, Major depressive disorder, recurrent, moderate F33.1 ; Generalized anxiety disorder F41.1 and Bipolar disorder with depression F31.30 [facility] [id number] [place] [address] 98373- 3062 Dec, [facility] [id number] [place] [address] 11249- 3064 Dec, [facility] [address] [place] [address] 38723- 6588 Dec, [facility] [id number] [place] [address] 76685- 2536 Dec, [facility] [address], [place] [address]- 8249 Dec, Yeast infection B37.9 [facility] [address] [place] [address] 32541- 1387 Dec, Pneumonia of both lungs due to methicillin resistant Staphylococcus aureus (MRSA), unspecified part of lung J15.212 and Benzodiazepine overdose, accidental or unintentional, subsequent encounter T42.4X1D [place] [address] [place] [address] 93428- 8395 Dec, [place] [id number] [place] [address] 92258- 7159 Dec, [place] [id number] [place] [address] 60212- 6354 Dec, Knee pain, left M25.562 and Edema, unspecified type R60.9 [place] [address] [place] [address] 15074- 9875 Dec, [facility] [address] [place] [address] 01611- 7361 Dec, Anxiety disorder, unspecified F41.9 and Bipolar disorder, unspecified F31.9 [place] [address] [place] [address] 48434- 5280 Nov, Major depressive disorder, recurrent, moderate F33.1 ; Anxiety disorder, unspecified F41.9 and 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 [place] [address], [place] [address]- 6931 Nov, [facility] [id number] [place] [address] 89076- 2348 Nov, Migraine without aura and without status migrainosus, not intractable G43.009 [place] [address] [place] [address] 17374- 1514 Nov, Migraine G43.909 [place] [address] [place] [address] 11939- 7501 Nov, [place] [id number] [place] [address] 76143- 9117 Nov, Major depressive disorder, recurrent, moderate F33.1 ; Anxiety disorder, unspecified F41.9 and 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9 ; Edema, unspecified type R60.9 ; Varicose vein of leg I83.90 and Obesity, unspecified obesity severity, unspecified obesity type E66.9 [place] [id number] [place] [address] 85964- 5122 Sep, Edema, unspecified type R60.9 ; Diabetes E11.9 and Knee pain , left M25.562 [place] [id number] [place] [address] 55354- 9825 Sep, [place] [id number] [place] [address] 03546- 3636 Sep, [place] [id number] [place] [address] 94964- 6176 Sep, Major depressive disorder, recurrent, moderate F33.1 ; Generalized anxiety disorder F41.1 and Bipolar disorder, unspecified F31.9 [facility] [address] [place] [address] 80021- 3883 30 Aug, 2015 Chondromalacia of left knee M94.262 [facility] [id number] [place] [address] 72608- 5629 24 Aug, 2015 Major depressive disorder, recurrent, moderate F33.1 ; Anxiety disorder, unspecified F41.9 and 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 [facility] [id number] [place] [address] 84742- 0874 Aug, [facility] [id number] [place] [address] 39343- 7824 Aug, Osteoarthritis of left knee M17.9 [facility] [id number] [place] [address] 85265- 8309 Aug, [facility] [id number] [place] [address] 73424- 4717 July, Major depressive disorder, recurrent, moderate F33.1 ; Anxiety disorder, unspecified F41.9 and 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 [facility] [id number] [place] [address] 63675- 3091 July, [facility] [id number] [place] [address] 07133- 2500 July, Chronic constipation K59.09 [facility] [id number] [place] [address] 62488- 3349 Jun, [facility] [id number] [place] [address] 75700- 4166 15 Jun, 2015 [facility] [id number] [place] [address] 03100- 2164 14 Jun, 2015 Osteoarthritis of left knee M17.9 [facility] [id number] [place] [address] 95954- 5062 Jun, [place] [id number] [place] [address] 45590- 1003 Jun, Generalized anxiety disorder F41.1 ; Bipolar disorder, unspecified F31.9 and Major depressive disorder, recurrent, moderate F33.1 [place] [id number] [place] [address] 68728- 6240 Jun, Migraine G43.909 [place] [address] 42849- 3712 Jun, Left knee pain M25.562 ; Chronic constipation K59.09 ; Dry mouth R68.2 ; Yeast vaginitis B37.3 and Memory loss R41.3 [place] [address] 33429- 0861 Jun, [place] [address] 43261- 9340 May, [place] [address] 94586- 3709 May, [place] [id number] [place] [address] 23270- 2595 May, [place] [address] 28291- 4414 May, [place] [id number] [place] [address] 87606- 5520 May, Acute bronchitis with COPD J44.0 ; Knee pain, left M25.562 and Encounter for tobacco use cessation counseling Z71.6 [place] [id number] [place] [address] 46870- 6689 May, [place] [address] 62598- 5614 Apr, Diabetes E11.9 ; TMJ (sprain of temporomandibular joint) S03.4XXA ; Tobacco abuse Z72.0 ; Migraine G43.909 and Anxiety F41.9 [place] [address] [place] [address] 79517- 6061 Apr, Generalized anxiety disorder F41.1 and Bipolar disorder, unspecified F31.9 [facility] [id number] [place] [address] 42444- 1188 Apr, Major depressive disorder, recurrent, moderate F33.1 ; Anxiety disorder, unspecified F41.9 and 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 [facility] [id number] [place] [address] 18465- 2600 Apr, [facility] [address] [id number] [place] [address] 16627- 1766 Mar, [facility] [id number] [place] [address] 11921- 4690 Feb, [id number] [place] [address] 19664- 6818 Feb, Major depressive disorder, recurrent, moderate F33.1 ; Anxiety disorder, unspecified F41.9 and 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 [facility] [id number] [place] [address] 63409- 6858 Feb, [facility] [id number] [place] [address] 76924- 9887 Feb, Generalized anxiety disorder F41.1 and Bipolar disorder, unspecified F31.9 [facility] [id number] [place] [address] 33118- 0120 30 Jan, 2015 [facility] [id number] [place] [address] 21450- 9586 18 Jan, 2015 [facility] [id number] [place] [address] 55300- 0796 13 Jan, 2015 Bipolar disorder, unspecified F31.9 and Generalized anxiety disorder F41.1 [facility] [id number] [place] [address] 92132- 7328 14 Dec, 2014 [facility] [id number] [place] [address] 42900- 7595 14 Dec, 2014 Bipolar disorder, unspecified F31.9 and Generalized anxiety disorder F41.1 [facility] [id number] [place] [address] 87295- 0925 Dec, Generalized anxiety disorder F41.1 and Major depressive disorder, recurrent, moderate F33.1 [facility] [id number] [place] [address] 23697- 8955 Oct, Headache 784.0 ; Cough 786.2 ; Vomiting and diarrhea 787.03 and Dysuria 788.1 [facility] [address] 55046- 7920 Aug, [facility] [address] 19266- 4951 Aug, Headache 784.0 and Shortness of breath 786.05 [facility] [id number] [place] [address] 91026- 7683 Aug, [facility] [id number] [place] [address] 10085- 0383 18 Aug, 2014 Migraine 346.90 [facility] [id number] [place] [address] 27886- 3473 Jun, [facility] [id number] [place] [address] 57486- 9710 Jun, [facility] [id number] [place] [address] 25635- 7014 May, [facility] [id number] [place] [address] 05786- 6459 May, [facility] [id number] [place] [address] 13979- 7637 May, [facility] [id number] [place] [address] 45067- 3085 May, [facility] [place] [facility] [address] [id number] [place] [address]- 6894 May, [facility] [place] [facility] [address] [id number] [place] [address]- 1143 May, [facility] [place] [facility] [address] [id number] [place] [address]- 4776 Apr, 2014 [facility] [place] [facility] [address] [id number] [place] [address]- 4121 Apr, 2014 [facility] [place] [facility] [address] [id number] [place] [address]- 6095 Apr, 2014 [facility] [place] [facility] [address] [id number] [place] [address]- 6909 Apr, [facility] [place] [facility] [address] [facility] [id number] [place] [address]- 6978 Apr, [facility] [place] [facility] [address] [id number] [place] [address]- 4303 Mar, [facility] [place] [facility] [address] [id number] [place] [address]- 0686 Mar, [facility] [place] [facility] [address] [facility] [id number] [place] [address]- 9520 Mar, [facility] [place] [facility] [address] [facility] [id number] [place] [address]- 0962 Mar, [facility] [place] [facility] [address] [id number], [place] [address]- 0544 Feb, [facility] [place] [facility] [address] [id number] [place] [address]- 0733 Feb, [facility] [place] [facility] [address] [id number] [place] [address]- 8617 Feb, [facility] [place] [facility] [address] [id number], [place] [address]- 8387 Feb, [facility] [place] [facility] [address] [id number], [place] [address]- 6140 Feb, [facility] [place] [facility] [address] [id number] [place] [address]- 3281 Feb, [facility] [place] [facility] [address] [id number] [place] [address]- 9643 Feb, [facility] [place] [facility] [address] [facility] [id number] [place] [address]- 4929 Feb, [facility] [place] [facility] [address] [id number] [place] [address]- 6601 Feb, [facility] [place] [facility] [address] [id number] [place] [address]- 5384 Feb, [facility] [place] [facility] [address] [id number] [place] [address]- 4839 Feb, [facility] [place] [facility] [address] [facility] [id number] [place] [address]- 4240 Feb, [facility] [place] [facility] [address] [facility] [id number] [place] [address]- 3056 Jan, [facility] [place] [facility] [address] [facility] [id number] [place] [address]- 3598 Jan, [facility] [place] [facility] [address] [facility] [id number] [place] [address]- 1313 Dec, [facility] [place] [facility] [address] [facility] [id number], [place] [address]- 9725 Dec, [facility] [place] [facility] [address] [id number], [place] [address]- 8905 Dec, [facility] [place] [facility] [address] [id number] [place] [address]- 2471 Dec, [facility] [place] [facility] [address] [facility] [id number] [place] [address]- 4447 Dec, [facility] [place] [facility] [address] [facility] [id number] [place] [address]- 0052 Dec, [facility] [place] [facility] [address] [id number] [place] [address]- 2638 Sep, 2013 [facility] [place] [facility] [address] [id number] [place] [address]- 4090 Sep, [facility] [place] [facility] [address] [id number] [place] [address]- 1706 Sep, 2013 [facility] [place] [facility] [address] [id number] [place] [address]- 6846 Sep, 2013 [facility] [place] [facility] [address] [id number] [place] [address]- 7984 Sep, 2013 [facility] [place] [facility] [address] [id number] [place] [address]- 6864 Sep, 2013 [facility] [place] [facility] [address] [id number] [place] [address]- 3424 Sep, [facility] [place] [facility] [address] [id number] [place] [address]- 1795 Sep, [facility] [place] [facility] [address] [id number] [place] [address]- 2307 Sep, [facility] [place] [facility] [address] [id number] [place] [address]- 2697 Sep, [facility] [place] [facility] [address] [id number] [place] [address]- 4964 Aug, [facility] [place] [facility] [address] [id number] [place] [address]- 7625 Aug, [facility] [place] [facility] [address] [id number] [place] [address]- 5683 Aug, [facility] [place] [facility] [address] [id number] [place] [address]- 8098 Aug, [facility] [place] [facility] [address] [id number] [place] [address]- 7996 Aug, [facility] [place] [facility] [address] [id number] [place] [address]- 7548 Aug, [facility] [place] [facility] [address] [id number] [place] [address]- 0097 Aug, [facility] [place] [facility] [address] [id number] [place] [address]- 6833 Aug, [facility] [place] [facility] [address] [id number] [place] [address]- 1351 Aug, [facility] [place] [facility] [address] [id number] [place] [address]- 5441 Aug, [facility] [place] [facility] [address] [id number] [place] [address]- 0665 Aug, [facility] [place] [facility] [address] [id number] [place] [address]- 5056 Aug, [facility] [place] [facility] [address] [id number] [place] [address]- 3823 Aug, [facility] [place] [facility] [address] [id number] [place] [address]- 7758 July, [facility] [place] [facility] [address] [id number] [place] [address]- 2536 July, [facility] [place] [facility] [address] [id number] [place] [address]- 2846 July, [facility] [place] [facility] [address] [id number] [place] [address]- 5500 July, [facility] [place] [facility] [address] [id number] [place] [address]- 8248 July, [facility] [place] [facility] [address] [id number] [place] [address]- 8237 July, [facility] [place] [facility] [address] [id number] [place] [address]- 2721 July, [facility] [place] [facility] [address] [id number] [place] [address]- 3901 Jun, [facility] [place] [facility] [address] [id number] [place] [address]- 1788 23 Jun, 2013 [facility] [place] [facility] [address] [id number] [place] [address]- 7613 18 Jun, 2013 [facility] [place] [facility] [address] [id number] [place] [address]- 5102 16 Jun, 2013 [facility] [place] [facility] [address] [id number] [place] [address]- 9680 16 Jun, 2013 [facility] [place] [facility] [address] [id number] [place] [address]- 9906 08 Jun, 2013 [facility] [place] [facility] [address] [id number] [place] [address]- 1396 08 Jun, 2013 [facility] [place] [facility] [address] [id number] [place] [address]- 2926 17 May, 2013 [facility] [place] [facility] [address] [id number] [place] [address]- 9207 17 May, 2013 [facility] [place] [facility] [address] [id number] [place] [address]- 1486 14 May, 2013 [facility] [place] [facility] [address] [id number] [place] [address]- 0014 14 May, 2013 [facility] [place] [facility] [address] [id number] [place] [address]- 6156 13 May, 2013 [facility] [place] [facility] [address] [id number] [place] [address]- 1252 13 May, 2013 [facility] [place] [facility] [address] [id number] [place] [address]- 9511 10 May, 2013 [facility] [place] [facility] [address] [id number] [place] [address]- 1122 10 May, 2013 [facility] [place] [facility] [address] [id number] [place] [address]- 7485 07 May, 2013 [facility] [place] [facility] [address] [id number] [place] [address]- 2642 26 Apr, 2013 [facility] [place] [facility] [address] [id number] [place] [address]- 7629 Apr, [facility] [place] [facility] [address] [id number] [place] [address]- 0126 Apr, [facility] [place] [facility] [address] [id number] [place] [address]- 4136 Apr, [facility] [place] [facility] [address] [id number] [place] [address]- 4536 Apr, [facility] [place] [facility] [address] [id number] [place] [address]- 7531 Apr, [facility] [place] [facility] [address] [id number] [place] [address]- 4054 Apr, [facility] [place] [facility] [address] [id number] [place] [address]- 8412 Apr, [facility] [place] [facility] [address] [id number] [place] [address]- 3788 Apr, [facility] [place] [facility] [address] [id number] [place] [address]- 9341 Apr, [facility] [place] [facility] [address] [id number] [place] [address]- 3206 Mar, [facility] [place] [facility] [address] [id number] [place] [address]- 7301 Mar, [facility] [place] [facility] [address] [id number], [place] [address]- 7813 Mar, [facility] [place] [facility] [address] [id number] [place] [address]- 7593 Mar, [facility] [place] [facility] [address] [id number] [place] [address]- 0662 Mar, [facility] [place] [facility] [address] [id number] [place] [address]- 0809 Mar, [facility] [place] [facility] [address] [id number] [place] [address]- 7815 Mar, [facility] [address] [id number] [place] [address]- 1907 Mar, [facility] [place] [facility] [address] [id number] [place] [address]- 9807 Feb, [facility] [place] [facility] [address] [id number] [place] [address]- 1994 Feb, [facility] [place] [facility] [address] [id number] [place] [address]- 6632 Jan, [facility] [place] [facility] [address] [id number] [place] [address]- 9982 Jan, [facility] [place] [facility] [address] [id number] [place] [address]- 9215 15 Jan, 2013 [facility] [place] [facility] [address] [id number] [place] [address]- 8936 Jan, [facility] [place] [facility] [address] [id number] [place] [address]- 6806 Jan, [facility] [place] [facility] [address] [id number] [place] [address]- 8597 Jan, [facility] [place] [facility] [address] [facility] [id number] [place] [address]- 6964 Jan, [facility] [place] [facility] [address] [id number] [place] [address]- 5924 05 Jan, 2013 [facility] [place] [facility] [address] [id number] [place] [address]- 4482 Dec, [facility] [place] [facility] [address] [id number] [place] [address]- 3559 10 Dec, 2012 [facility] [place] [facility] [address] [id number] [place] [address]- 0832 10 Dec, 2012 [facility] [place] [facility] [address] [id number] [place] [address]- 8932 20 Nov, 2012 [facility] [place] [facility] [address] [id number] [place] [address]- 2680 Nov, 2012 [facility] [place] [facility] [address] [id number] [place] [address]- 0605 Nov, [facility] [place] [facility] [address] [id number] [place] [address]- 8241 Nov, [facility] [place] [facility] [address] [id number] [place] [address]- 0950 Nov, [facility] [address] [id number] [place] [address]- 2152 Nov, [facility] [place] [facility] [address] [id number] [place] [address]- 7239 Oct, [facility] [address] [id number] [place] [address]- 9470 Oct, [facility] [address] [id number] [place] [address]- 6162 Sep, [facility] [address] [id number] [place] [address]- 0268 Sep, [facility] [place] [facility] [address] [id number] [place] [address]- 2673 Sep, [facility] [place] [facility] [address] [id number] [place] [address]- 8577 Sep, [facility] [place] [facility] [address] [id number] [place] [address]- 8103 Sep, [facility] [place] [facility] [address] [id number] [place] [address]- 0985 Sep, [facility] [place] [facility] [address] [id number] [place] [address]- 4077 Sep, [facility] [place] [facility] [address] [id number] [place] [address]- 3250 Aug, [facility] [place] [facility] [address] [id number] [place] [address]- 7073 14 Aug, 2012 [facility] [address] [id number] [place] [address]- 3259 13 Aug, 2012 [facility] [place] [facility] [address] [id number] [place] [address]- 3516 Aug, [facility] [address] [id number] [place] [address]- 3979 Aug, [facility] [place] [facility] [address] [id number] [place] [address]- 5079 Aug, [facility] [address] [id number] [place] [address]- 7079 July, [facility] [address] [id number] [place] [address]- 7782 July, [facility] [address] [id number] [place] [address]- 6119 July, [facility] [address] [id number] [place] [address]- 7798 July, [facility] [address] [id number] [place] [address]- 5472 July, [facility] [place] [facility] [address] [id number] [place] [address]- 2420 July, [facility] [address] [id number] [place] [address]- 0113 Jun, [facility] [place] [facility] [address] [id number] [place] [address]- 6493 Jun, [facility] [place] [facility] [address] [id number] [place] [address]- 0764 15 Jun, 2012 [facility] [place] [facility] [address] [id number] [place] [address]- 3489 Jun, [facility] [place] [facility] [address] [id number] [place] [address]- 8670 Jun, [facility] [place] [facility] [address] [id number] [place] [address]- 3233 Jun, [facility] [place] [facility] [address] [id number] [place] [address]- 0143 Jun, [facility] [place] [facility] [address] [id number] [place] [address]- 1316 May, [facility] [place] [facility] [address] [id number] [place] [address]- 4173 May, [facility] [place] [facility] [address] [id number] [place] [address]- 5880 26 Apr, 2012 [facility] [place] [facility] [address] [id number] [place] [address]- 2118 Apr, [facility] [place] [facility] [address] [facility] [id number] [place] [address]- 3308 18 Apr, 2012 [facility] [place] [facility] [address] [id number] [place] [address]- 1944 18 Apr, 2012 [facility] [place] [facility] [address] [id number] [place] [address]- 6307 Apr, [facility] [place] [facility] [address] [facility] [id number] [place] [address]- 0084 08 Apr, 2012 [facility] [place] [facility] [address] [facility] [id number] [place] [address]- 2579 07 Apr, 2012 [facility] [place] [facility] [address] [facility] [id number], [place] [address]- 7836 07 Apr, 2012 [facility] [place] [facility] [address] [facility] [id number] [place] [address]- 9281 06 Apr, 2012 [facility] [place] [facility] [address] [id number] [place] [address]- 3807 06 Apr, 2012 [facility] [place] [facility] [address] [facility] [id number] [place] [address]- 5760 03 Apr, 2012 [facility] [place] [facility] [address] [facility] [id number], [place] [address]- 1830 30 Mar, 2012 [facility] [address] [id number] [place] [address]- 2279 Mar, [facility] [address] [id number] [place] [address]- 0291 Mar, [facility] [address] [id number] [place] [address]- 2459 Mar, [facility] [address] [id number] [place] [address]- 4557 Mar, [facility] [address] [id number] [place] [address]- 6626 Mar, [facility] [address] [id number] [place] [address]- 5381 Mar, [facility] [address] [id number] [place] [address]- 3862 Mar, [facility] [address] [id number] [place] [address] Mar, [facility] [address] [id number] [place] [address] Mar, [facility] [address] [id number] [place] [address] Mar, [facility] [address] [id number] [place] [address] Mar, [facility] [address] [id number], [place] [address] Mar, [facility] [address] [id number] [place] [address] Feb, [facility] [address] [id number] [place] [address] Feb, [facility] [address] [id number] [place] [address] Feb, [facility] [place] [facility] [address] [id number] [place] [address] 18 Feb, 2012 [facility] [place] [facility] [address] [id number] [place] [address] Feb, [facility] [place] [facility] [address] [id number] [place] [address]46 Feb, [facility] [place] [facility] [address] [id number] [place] [address] Feb, [facility] [place] [facility] [address] [id number] [place] [address] 2546 Feb, [facility] [place] [facility] [address] [id number] [place] [address] Feb, [facility] [place] [facility] [address] [id number] [place] [address]- [address] Feb, [facility] [place] [facility] [address] [id number] [place] [address]- [address] Feb, [facility] [place] [facility] [address] [id number] [place] [address] Feb, [facility] [place] [facility] [address] [id number] [place] [address]- [address] Feb, [facility] [place] [facility] [address] [id number] [place] [address]- [address] Feb, [facility] [place] [facility] [address] [id number] [place] [address]- 2006 Feb, [facility] [place] [facility] [address] [id number] [place] [address] 2546 Jan, [facility] [place] [facility] [address] [id number] [place] [address]- [address] Jan, [facility] [place] [facility] [address] [id number] [place] [address]- [address] Jan, [facility] [place] [facility] [address] [id number] [place] [address] Jan, [facility] [place] [facility] [address] [id number] [place] [address]- [address] Dec, [facility] [place] [facility] [address] [id number] [place] [address]- [address] Dec, [facility] [place] [facility] [address] [id number] [place] [address]- [address] Dec, [facility] [place] [facility] [address] [id number] [place] [address]- [address] Dec, [facility] [place] [facility] [address] [id number] [place] [address]- [address] Dec, [facility] [place] [facility] [address] [id number] [place] [address]- [address] Dec, [facility] [place] [facility] [address] [id number] [place] [address]- [address]797 Dec, [facility] [place] [facility] [address] [id number], [place] [address] Dec, [facility] [place] [facility] [address] [id number], [place] [address] Dec, [facility] [place] [facility] [address] [facility] [place] [id number], [place] [address] Dec, [facility] [place] [facility] [address] [id number], [place] [address] Dec, [facility] [place] [facility] [address] [id number], [place] [address] 25 Nov, 2011 [facility] [place] [facility] [address] [id number], [place] [address] 24 Sep2011 [facility] [place] [facility] [address] [id number], [place] [address] 20 Nov, 2011 [facility] [place] [facility] [address] [id number], [place] [address] 19 Nov, 2011 [facility] [place] [facility] [address] [id number] [place] [address]- [address] 17 Sep, 2011 [facility] [place] [facility] [address] [id number] [place] [address] 2546 16 Sep, 2011 [facility] [place] [facility] [address] [id number] [place] [address] 2546 14 Sep, 2011 [facility] [place] [facility] [address] [id number] [place] [address] 2546 13 Sep, 2011 [facility] [place] [facility] [address] [id number] [place] [address] 2546 12 Sep, 2011 [facility] [place] [facility] [address] [id number] [place] [address] 2546 07 Sep, 2011 [facility] [place] [facility] [address] [id number] [place] [address] 2546 06 Sep, 2011 [facility] [place] [facility] [address] [id number] [place] [address] 2546 06 Sep, 2011 [facility] [place] [facility] [address] [id number] [place] [address] 2543 05 Sep, 2011 [facility] [place] [facility] [address] [id number] [place] [address] 2546 29 Oct, 2011 [facility] [place] [facility] [address] [id number] [place] [address] 2547 29 Oct, 2011 [facility] [place] [facility] [address] [id number] [place] [address] 2546 28 Oct, 2011 [facility] [place] [facility] [address] [id number] [place] [address] 2541 28 Oct, 2011 [facility] [place] [facility] [address] [id number] [place] [address] 2546 23 Oct, 2011 [facility] [place] [facility] [address] [id number] [place] [address] 2546 21 Oct, 2011 [facility] [place] [facility] [address] [id number] [place] [address] 2545 Oct, [facility] [place] [facility] [address] [id number] [place] [address]- [address] Oct, [facility] [place] [facility] [address] [id number] [place] [address] Oct, [facility] [place] [facility] [address] [id number] [place] [address]- [address] Oct, [facility] [place] [facility] [address] [id number] [place] [address]- [address] Oct, [facility] [address] [id number] [place] [address]- [address] Sep, [facility] [place] [facility] [address] [id number] [place] [address]- [address] Sep, [facility] [address] [id number] [place] [address]- [address] Sep, [facility] [address] [id number] [place] [address]- [address] Sep, [facility] [facility] [address] [id number] [place] [address] Sep, [facility] [facility] [address] [id number] [place] [address] Sep, [facility] [address] [id number] [place] [address] Aug, [facility] [address] [id number] [place] [address] July, [facility] [place] [facility] [address] [id number] [place] [address] July, [facility] [place] [facility] [address] [id number] [place] [address] Jun, [facility] [address] [id number] [place] [address] Jun, [facility] [address] [id number] [place] [address] 11 Jun, 2011 [facility] [place] [facility] [address] [id number] [place] [address] Jun, [facility] [place] [facility] [address] [id number] [place] [address] Jun, [facility] [place] [facility] [address] [id number] [place] [address] Jun, [facility] [place] [facility] [address] [id number] [place] [address] Jun, [facility] [place] [facility] [address] [id number] [place] [address] Jun, [facility] [place] [facility] [address] [id number] [place] [address] Jun, [facility] [place] [facility] [address] [id number] [place] [address] Jun, [facility] [place] [facility] [address] [id number] [place] [address] Jun, [facility] [facility] [address] [id number] [place] [address] May, [facility] [place] [facility] [address] [id number] [place] [address] 16 May, 2011 [facility] [place] [facility] [address] [id number] [place] [address] 14 May, 2011 [facility] [place] [facility] [address] [id number] [place] [address] 06 May, 2011 [facility] [place] [facility] [address] [id number] [place] [address] Apr, [facility] [place] [facility] [address] [id number] [place] [address] Apr, [facility] [address] [id number] [place] [address] Apr, [facility] [address] [id number] [place] [address] Apr, [facility] [address] [id number] [place] [address] Apr, [facility] [address] [id number] [place] [address] Apr, [facility] [address] [id number] [place] [address] Apr, [facility] [address] [id number] [place] [address] Apr, [facility] [address] [id number] [place] [address] Mar, [facility] [address] [id number] [place] [address] Mar, [facility] [address] [id number] [place] [address] Mar, [facility] [address] [id number] [place] [address] Mar, [facility] [address] [id number] [place] [address] 17 Mar, 2011 [facility] [address] [id number] [place] [address] Mar, [facility] [address] [id number] [place] [address] Mar, [facility] [address] [id number] [place] [address] Mar, [facility] [address] [id number] [place] [address] Mar, [facility] [address] [id number] [place] [address] 10 Mar, 2011 [facility] [address] [id number] [place] [address] Mar, [facility] [address] [id number] [place] [address] Mar, [facility] [address] [id number] [place] [address] Mar, [facility] [address] [id number] [place] [address] Mar, [facility] [address] [id number] [place] [address] Mar, [facility] [address] [id number] [place] [address]- [address] Mar, [facility] [address] [id number] [place] [address] Feb, [facility] [address] [id number] [place] [address] Feb, [facility] [address] [id number] [place] [address] Feb, [facility] [address] [id number] [place] [address] Jan, [facility] [address] [id number] [place] [address] Jan, [facility] [address] [id number], [place] [address] Jan, [facility] [address] [id number] [place] [address] Dec, [facility] [address] [id number] [place] [address] Dec, [facility] [address] [id number] [place] [address] Nov, [facility] [address] [id number] [place] [address] Oct, [facility] [address] [facility] [id number] [place] [address] Oct, [facility] [address] [facility] [id number], [place] [address] Oct, [facility] [address] [id number] [address] Sep, [facility] [address] [id number] [address] Apr, [facility] [address] [id number], [place] [address] Feb, [facility] [address] [facility] [place] [id number], [place] [address] Jan, IMMUNIZATIONS No Known Immunizations SOCIAL HISTORY Never Assessed REASON FOR VISIT Med list update PLAN OF CARE VITAL SIGNS MEDICATIONS Medication Instructions Dosage Frequency Start Date End Date Duration Status Amitriptyline HCl 150 MG Orally repository Once a day 1 tablet 24h 30 days Active Abilify 5 mg Orally Once a day 1 tablet 24h Jun, 30 days Active Topamax 100 mg Orally Twice a day 1 tablet 12h 30 Active Zyrtec Allergy 10 MG Orally Once a day 1 tablet 24h Active Oxygen Active Ventolin HFA 90 mcg/actuation Inhalation every 4 hrs 2 puffs as needed 4h Dec, Active Spiriva HandiHaler 18 MCG Inhalation Once a day 1 capsule 24h Active Trulicity 0.75 MG/0.5ML Subcutaneous once weekly 0.5 ml Jun, 90 days Active Cymbalta 60 mg Orally PALS Twice a day 1 capsule 12h 11 Feb, 2015 30 days Active Zyprexa 15 MG Orally Once a day 1 tablet 24h Jan, 30 days Active Ipratropium-Albuterol 0.5-2.5 (3) MG/3ML Inhalation Four times a day 3 ml as needed for Shortness of breath 6h Active Neurontin 300 MG Orally Three times a day 1 capsule 8h Dec, 30 days Active Multivitamin Adult - Active PredniSONE 10 mg Orally Once a day, decrease by 1 tablet every other day 6 tablets Dec, Jan, Active Advair Diskus 250 mcg-50 mcg Inhalation Twice a day 1 puff 12h Dec, Active RESULTS No Results PROCEDURES No Known [...] Hospitalization History COPD-[facility] 12/30/2016 [facility] around 2006 or so. Hospitalization History for COPD x2 Mar 2017 Hospitalization History Upper GI bleed at apr [address] [facility]- COPD Exacerbation, diarrhea 05/23/2017 Hospitalization History COPD exacerbation-[facility] 06/13/17
--- OUTSIDE RECORDS SUMMARY | 2017-08-04 18:08 | XMS REPORT ---
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 Active Problem Thrush B37.0 Active 95068502 Problem TMJ (sprain of temporomandibular joint) S03.4XXA Active 12318055 Problem Anxiety F41.9 Active 77507661 Problem Tobacco abuse Z72.0 Active 79958967 Problem Non morbid obesity due to excess calories E66.09 Active 066283334 Problem Migraine G43.909 Active 14446191 Problem History of MRSA infection Z86.14 Active 923761407 Problem Knee pain, left M25.562 Active 06145930 Problem Obesity, unspecified obesity severity, unspecified obesity type E66.9 Active 290825858 Problem Migraine without aura and without status migrainosus, not intractable G43.009 Active 605871695 Problem Other emphysema J43.8 Active 12832665 Problem Intractable cyclical vomiting with nausea G43.A1 Active 04771341 Problem Viral illness B34.9 Active 24849260 Problem Dry mouth R68.2 Active 41464013 Problem Encounter for tobacco use cessation counseling Z71.6 Active 203064967 Problem Acute bronchitis with COPD J44.0 Active 515669278021525 Problem Methamphetamine use disorder, moderate, 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 Active 86888265 Problem Chronic bronchitis, unspecified chronic bronchitis type J42 Active 28901214 Problem COPD exacerbation J44.1 Active 138136803 Problem Diabetes E11.9 Active 396155980 Problem Memory loss R41.3 Active 51717992 Problem Left knee pain M25.562 Active 08647898 Problem Chronic constipation K59.09 Active 720412068 Problem Yeast vaginitis B37.3 Active 15634090 Problem Generalized anxiety disorder F41.1 Active 44357976 Problem Bipolar disorder with depression F31.30 Active 38336610 Problem Bipolar disorder, unspecified F31.9 Active 02461178 Problem Bipolar disorder, current episode depressed, severe, without psychotic features F31.4 Active 36396799 ALLERGIES No Information ENCOUNTERS Encounter Location Date Diagnosis [facility] [id number] [place] [address] 15806- 5076 July, [facility] [id number] [place] [address] 78769- 4967 Jun, [facility] [id number] [place] [address] 03478- 5077 Jun, [facility] [id number] [place] [address] 53588- 3714 Jun, [facility] [id number] [place] [address] 29245- 5947 May, [facility] [id number] [place] [address] 02413- 5922 May, [facility] [id number] [place] [address] 97508 -6191 17 May, 2017 [facility] [id number] [place] [address] 37747- 0926 16 May, 2017 [facility] [id number] [place] [address] 55160- 7155 15 May, 2017 [facility] [id number] [place] [address] 12704- 7823 14 May, 2017 Diarrhea, unspecified type R19.7 and Intractable cyclical vomiting with nausea G43.A1 [facility] [id number] [place] [address] 00398- 4752 12 May, 2017 [facility] [address] 73484- 4489 May, [facility] [address] 58222- 2625 Apr, COPD exacerbation J44.1 ; Esophageal candidiasis B37.81 ; Other acute gastritis with hemorrhage K29.01 and Acute posthemorrhagic anemia D62 [facility] [address] 45815- 6131 Apr, Viral illness B34.9 and COPD exacerbation J44.1 [facility] [address] 52539 -3773 Apr, Shortness of breath R06.02 and Pneumonia of both lower lobes due to infectious organism J18.9 [facility] [address] 14495 -9319 Mar, COPD with acute exacerbation J44.1 [place] [address] 82864- 4700 Mar, Chronic obstructive pulmonary disease with acute exacerbation J44.1 and Diabetes E11.9 [place] [address] 27626- 2035 Mar, [place] [address] 72798- 6778 Mar, [facility] [address] 66008 -6686 Mar, COPD exacerbation J44.1 [place] [id number] [place] [address] 11397- 7135 Mar, [place] [address] 05580- 7373 Mar, Migraine G43.909 ; Hypokalemia E87.6 and Type 2 diabetes mellitus without complications E11.9 [place] [address] 61082- 1095 Feb, [facility] [id number] [place] [address] 13774- 2810 Feb, 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 ; Major depressive disorder, recurrent, moderate F33.1 ; Anxiety disorder, unspecified F41.9 and Tobacco abuse Z72.0 [place] [id number] [place] [address] 50386- 4225 Jan, Major depressive disorder, recurrent, moderate F33.1 [place] [address] 55676- 9423 Jan, [place] [id number] [place] [address] 31890- 0115 Jan, [place] [address] 07990- 2934 Jan, Major depressive disorder, recurrent, moderate F33.1 [place] [id number] [place] [address] 92476- 6759 Jan, Major depressive disorder, recurrent, moderate F33.1 ; Anxiety disorder, unspecified F41.9 ; Methamphetamine use disorder, moderate, 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 [id number] [place] [address] 06095- 4767 Jan, Chronic obstructive pulmonary disease with acute exacerbation J44.1 and Diabetes E11.9 [place] [id number] [place] [address] 15014- 4143 Jan, [place] [id number] [place] [address] 67461- 6820 Jan, [place] [id number] [place] [address] 33538- 2184 Dec, Acute respiratory failure with hypoxia J96.01 and Chronic bronchitis, unspecified chronic bronchitis type J42 [facility] [id number] [place] [address] 99995- 0116 Dec, [facility] [address] [place] [address] [id number] Nov, Dental caries K02.9 and Dental examination Z01.20 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 [id number] [place] [address] 92613- 8521 Oct, Diabetes E11.[address] [facility] [id number] [place] [address] 09531- 1518 Oct, [facility] [id number] [place] [address] 44941- 2068 Oct, [facility] [id number] [place] [address] 23481- 2556 Oct, [facility] [id number] [place] [address] 20060- 4423 Sep, Major depressive disorder, recurrent, moderate F33.1 ; Anxiety disorder, unspecified F41.9 and Bipolar disorder, unspecified F31.9 [facility] [address] [place] [address] 26912- 2459 Sep, Acute exacerbation of chronic obstructive pulmonary disease (COPD) J44.1 and Migraine G43.909 [place] [address] [address]- 1056 Sep, [facility] [id number] [place] [address] [id number] Sep, [facility] [address] [address]- 3676 Sep, Acute exacerbation of chronic obstructive pulmonary disease (COPD) J44.1 [facility] [id number] [place] [address] 84204 -7318 Sep, Acute exacerbation of chronic obstructive pulmonary disease (COPD) J44.1 [facility] [id number] [place] [address] 38173- 0892 Aug, 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 [address] [place] [address] 97995- 4795 Aug, Wheezing R06.2 ; Non morbid obesity due to excess calories E66.09 ; Migraine without aura and without status migrainosus, not intractable G43.009 and Tobacco abuse Z72.0 [facility] [address] [address] 14 Aug, 2016 Encounter for dental examination Z01.20 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 [address] [address]- 7071 July, [facility] [id number] [place] [address] 59690- 1649 July, [facility] [address] [address]- 5759 July, [facility] [id number] [place] [address] 64484- 8353 July, Diabetes E11.9 [facility] [id number] [place] [address] 69102- 2731 Jun, Major depressive disorder, recurrent, moderate F33.1 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 [id number] [place] [address] 88922- 5314 Jun, Diabetes E11.9 ; Migraine G43.909 ; Thrush B37.0 and Wheezing R06.2 [facility] [address] [id number] Jun, Dental examination Z01.20 [facility] [id number] [place] [address] 15549- 8070 Jun, 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 [address] [place] [address] 81647- 3249 Jun, [facility] [id number] [place] [address] 23711- 5001 Jun, Wheezing R06.2 [facility] [id number] [place] [address] [id number] Jun, Dental caries K02.9 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 [place] [id number] [place] [address] 11633- 1909 Jun, RLQ abdominal pain R10.31 ; Diabetes E11.9 ; Obesity, unspecified obesity severity, unspecified obesity type E66.9 ; Wheezing R06.2 and Abnormal urinalysis R82.90 [place] [id number] [place] [address] 55461- 6651 May, [address] 14314- 6132 May, Well woman exam Z01.419 ; Breast cancer screening Z12.39 ; Cervical cancer screening Z12.4 ; Urinary frequency R35.0 ; Edema, unspecified type R60.9 and Chronic constipation K59.09 [place] [id number] [place] [address] 03420- 9292 May, Major depressive disorder, recurrent, moderate F33.1 ; Anxiety disorder, unspecified F41.9 and 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 [place] [id number] [place] [address] 83466- 6315 Apr, [place] [id number] [place] [address] 51115- 6528 Mar, Major depressive disorder, recurrent, moderate F33.1 [place] [id number] [place] [address] 10890- 5120 Mar, Major depressive disorder, recurrent, moderate F33.1 ; Generalized anxiety disorder F41.1 and Bipolar I disorder, most recent episode depressed with anxious distress F31.30 [place] [id number] [place] [address] 15852- 9095 Mar, Diabetes E11.9 ; Non morbid obesity due to excess calories E66.09 ; Breast cancer screening Z12.39 and Encounter for immunization Z23 [place] [id number] [place] [address] 10864- 1134 Mar, Major depressive disorder, recurrent, moderate F33.1 ; Anxiety disorder, unspecified F41.9 and 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 [place] [address] [place] [address] 40300- 9571 Mar, [place] [id number] [place] [address] 15276- 0399 Feb, Major depressive disorder, recurrent, moderate F33.1 ; Anxiety disorder, unspecified F41.9 and 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 [id number] [place] [address] 87384- 9921 Jan, Bronchitis J40 [facility] [id number] [place] [address] 76633- 7152 Jan, [facility] [id number] [place] [address] 79000- 1872 Jan, [facility] [id number] [place] [address] 09212- 1153 Jan, Elbow injury, right, initial encounter S59.901A ; Multiple contusions T14.8 and Cervical strain, acute, initial encounter S16.1XXA [facility] [id number] [place] [address] 70911- 8853 Dec, Major depressive disorder, recurrent, moderate F33.1 ; Generalized anxiety disorder F41.1 and Bipolar disorder with depression F31.30 [facility] [address] [place] [address] 70187- 0593 Dec, [facility] [id number] [place] [address] 13490- 9183 Dec, [facility] [id number] [place] [address] 80913- 3433 Dec, [facility] [id number] [place] [address] 23328- 1492 Dec, [facility] [id number] [place] [address] 24201- 6883 Dec, Yeast infection B37.9 [place] [address] [address]- 4730 Dec, Pneumonia of both lungs due to methicillin resistant Staphylococcus aureus (MRSA), unspecified part of lung J15.212 and Benzodiazepine overdose, accidental or unintentional, subsequent encounter T42.4X1D [facility] [address] [address]- 0218 Dec, [place] [id number] [place] [address] 23882- 5115 Dec, [place] [id number] [place] [address] 07336- 3993 Dec, Knee pain, left M25.562 and Edema, unspecified type R60.9 [place] [id number] [place] [address] 93608- 2600 Dec, [place] [id number] [place] [address] 54989- 6260 Dec, Anxiety disorder, unspecified F41.9 and Bipolar disorder, unspecified F31.9 [place] [address] [place] [address] 11142- 1202 Nov, Major depressive disorder, recurrent, moderate F33.1 ; Anxiety disorder, unspecified F41.9 and 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1 ; Anxiety disorder, unspecified F41.9 and 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 [place] [id number] [place] [address] 06242- 9193 Oct, Chronic constipation K59.09 and Obesity, unspecified obesity severity, unspecified obesity type E66.9 [place] [id number] [place] [address] 34932- 1032 Oct, Obesity, unspecified obesity severity, unspecified obesity type E66.9 ; Chronic constipation K59.09 and Anxiety disorder, unspecified F41.9 [place] [id number] [place] [address] 89386- 8018 Oct, [place] [id number] [place] [address] 87343- 0806 Sep, Diabetes E11.9 ; Edema, unspecified type R60.9 ; Varicose vein of leg I83.90 and Obesity, unspecified obesity severity, unspecified obesity type E66.9 [place] [id number] [place] [address] 13349- 4288 Sep, Edema, unspecified type R60.9 ; Diabetes E11.9 and Knee pain , left M25.562 [place] [id number] [place] [address] 95913- 8958 Sep, [place] [id number] [place] [address] 29803- 4578 Sep, [place] [id number] [place] [address] 96520- 2011 Sep, Major depressive disorder, recurrent, moderate F33.1 ; Generalized anxiety disorder F41.1 and Bipolar disorder, unspecified F31.9 [place] [address] [place] [address] 84098- 7974 Aug, Chondromalacia of left knee M94.262 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 [id number] [address]- 7987 Aug, [facility] [id number] [place] [address] 01849- 2484 Aug, Osteoarthritis of left knee M17.9 [facility] [id number] [place] [address] 28290- 8746 Aug, 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 [address] [address]- 1781 July, [facility] [id number] [place] [address] 54641- 6194 July, Chronic constipation K59.09 [facility] [id number] [address]- 8424 Jun, [facility] [id number] [place] [address] 54686- 2331 15 Jun, 2015 [facility] [id number] [address]- 5238 14 Jun, 2015 Osteoarthritis of left knee M17.9 [facility] [id number] [place] [address] 74421- 3759 Jun, [facility] [address] [id number] [address] Jun, Generalized anxiety disorder F41.1 ; Bipolar disorder, unspecified F31.9 and Major depressive disorder, recurrent, moderate F33.1 [place] [id number] [place] [address] Jun, Migraine G43.909 [place] [id number] [place] [address] Jun, Left knee pain M25.562 ; Chronic constipation K59.09 ; Dry mouth R68.2 ; Yeast vaginitis B37.3 and Memory loss R41.3 [place] [id number] [place] [address] Jun, [place] [address] [address] May, [place] [address] [address] May, [place] [address] [address] May, [place] [id number] [place] [address] May, [place] [id number] [place] [address] May, Acute bronchitis with COPD J44.0 ; Knee pain, left M25.562 and Encounter for tobacco use cessation counseling Z71.6 [place] [id number] [place] [address] 56901- 7449 May, [place] [id number] [place] [address] 33912- 0957 Apr, Diabetes E11.9 ; TMJ (sprain of temporomandibular joint) S03.4XXA ; Tobacco abuse Z72.0 ; Migraine G43.909 and Anxiety F41.9 [place] [id number] [place] [address] 46114- 5457 Apr, Generalized anxiety disorder F41.1 and Bipolar disorder, unspecified F31.9 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 [id number] [place] [address] 93595- 2086 Apr, [facility] [id number] [place] [address] 82696- 6617 Mar, [facility] [id number] [place] [address] 06884- 1637 Feb, 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 [id number] [place] [address] 70329- 3132 Feb, [facility] [id number] [place] [address] 93190- 8289 Feb, Generalized anxiety disorder F41.1 and Bipolar disorder, unspecified F31.9 [facility] [id number] [place] [address] 66446- 7259 [address], [address] [facility] [id number] [place] [address] 42264- 6144 [address], [address] [facility] [id number] [place] [address] 32620- 2397 Jan, Bipolar disorder, unspecified F31.9 and Generalized anxiety disorder F41.1 [facility] [id number] [place] [address] 69604- 5038 [address], [address] [facility] [id number] [place] [address] 60980- 5240 Dec, Bipolar disorder, unspecified F31.9 and Generalized anxiety disorder F41.1 [facility] [id number] [place] [address] 11763- 6098 Dec, Generalized anxiety disorder F41.1 and Major depressive disorder, recurrent, moderate F33.1 [facility] [id number] [place] [address] 51850- 2568 Oct, Headache 784.0 ; Cough 786.2 ; Vomiting and diarrhea 787.[address] [facility] [id number] [place] [address] 95158- 6504 Aug, [facility] [address] 64860- 3532 Aug, Headache 784.0 and Shortness of breath 786.05 [facility] [id number] [place] [address] 00045- 6536 Aug, [facility] [address] 49200- 3760 Aug, Migraine 346.90 [facility] [id number] [place] [address] 34455- 3932 Jun, [facility] [id number] [place] [address] 87510- 77[address] Jun, [facility] [id number] [place] [address] 10875- 3248 May, [facility] [id number] [place] [address] 34453- 1135 May, [facility] [id number] [place] [address] 34263- 0791 May, [facility] [id number] [place] [address] 60024- 2063 May, [facility] [id number] [place] [address] 31263- 8987 May, [facility] [id number] [place] [address]- 1639 May, [facility] [place] [facility] [address] [id number] [place] [address]- 7081 Apr, 2014 [facility] [place] [facility] [address] [id number] [place] 5606 Apr, 2014 [facility] [place] [facility] [address] [id number] [place] [address]- 3606 Apr, 2014 [facility] [place] [facility] [address] [id number] [place] [address]- 7486 Apr, 2014 [facility] [place] [facility] [address] [id number] [place] 5785 Apr, [facility] [place] [facility] [address] [id number] [place] [address]- 4782 Mar, [facility] [place] [facility] [address] [id number] [place] [address]- 6499 Mar, [facility] [place] [facility] [address] [id number] [place] [address]- 0683 Mar, [facility] [place] [facility] [address] [id number] [place] [address]- 8553 Mar, [facility] [place] [facility] [address] [facility] [id number] [place] [address]- 9343 Feb, [facility] [place] [facility] [address] [id number] [place] [address]- 6289 Feb, [facility] [place] [facility] [address] [id number] [place] [address]- 6195 18 Feb, 2014 [facility] [place] [facility] [address] [id number] [place] 7086 Feb, [facility] [place] [facility] [address] [id number] [place] [address]- 9356 16 Feb, 2014 [facility] [place] [facility] [address] [id number] [place] [address]- 6586 Feb, [facility] [place] [facility] [address] [id number] [place] [address]- 8512 Feb, [facility] [place] [facility] [address] [id number] [place] [address]- 6619 Feb, [facility] [place] [facility] [address] [id number] [place] [address]- 7420 Feb, [facility] [place] [facility] [address] [id number] [place] [address]- 2667 Feb, [facility] [place] [facility] [address] [id number] [place] [address]- 5825 Feb, [facility] [place] [facility] [address] [id number] [place] [address]- 8500 Feb, [facility] [place] [facility] [address] [id number] [place] [address]- 8204 Jan, [facility] [place] [facility] [address] [id number] [place] [address]- 3582 Jan, [facility] [place] [facility] [address] [id number] [place] [address]- 5519 Dec, [facility] [place] [facility] [address] [id number] [place] [address]- 7309 Dec, [facility] [place] [facility] [address] [id number] [address]- 2766 Dec, [facility] [place] [facility] [address] [id number] [address]- 7183 Dec, [facility] [place] [facility] [address] [id number] [place] [address]- 9405 Dec, [facility] [place] [facility] [address] [id number] [place] [address]- 9731 Dec, [facility] [place] [facility] [address] [id number] [place] [address]- 3788 Sep, [facility] [place] [facility] [address] [id number] [place] [address]- 9574 24 Sep, 2013 [facility] [place] [facility] [address] [id number] [place] [address]- 2870 Sep, 2013 [facility] [place] [facility] [address] [id number] [place] [address]- 1604 Sep, 2013 [facility] [place] [facility] [address] [id number] [place] [address]- 4850 Sep, 2013 [facility] [place] [facility] [address] [id number] [place] [address]- 7546 Sep, 2013 [facility] [place] [facility] [address] [id number] [place] [address]- 0515 Sep, [facility] [place] [facility] [address] [id number] [place] [address]- 0465 Sep, 2013 [facility] [place] [facility] [address] [id number] [place] [address]- 5256 Sep, 2013 [facility] [place] [facility] [address] [id number] [place] [address]- 9834 Sep, [facility] [place] [facility] [address] [id number] [place] [address]- 7489 24 Aug, 2013 [facility] [place] [facility] [address] [id number] [place] [address]- 8871 Aug, [facility] [place] [facility] [address] [id number] [place] [address]- 1259 Aug, [facility] [place] [facility] [address] [id number] [place] [address]- 9665 Aug, [facility] [place] [facility] [address] [id number] [place] [address]- 9767 Aug, [facility] [place] [facility] [address] [id number] [place] [address]- 7772 14 Aug, 2013 [facility] [place] [facility] [address] [id number] [place] [address]- 3993 14 Aug, 2013 [facility] [place] [facility] [address] [id number] [place] [address]- 8022 Aug, [facility] [place] [facility] [address] [id number] [place] [address]- 3121 Aug, [facility] [place] [facility] [address] [id number] [place] [address]- 5010 Aug, [facility] [place] [facility] [address] [id number] [place] [address]- 3102 Aug, [facility] [place] [facility] [address] [id number] [place] [address]- 8532 Aug, [facility] [place] [facility] [address] [id number] [place] [address]- 1157 Aug, [facility] [place] [facility] [address] [id number] [place] [address]- 5081 July, [facility] [place] [facility] [address] [id number] [place] [address]- 1816 July, [facility] [place] [facility] [address] [id number] [place] [address]- 2288 July, [facility] [place] [facility] [address] [id number] [place] [address]- 1399 July, [facility] [place] [facility] [address] [id number] [place] [address]- 7058 July, [facility] [place] [facility] [address] [id number] [place] [address]- 9503 July, [facility] [place] [facility] [address] [id number] [place] [address]- 3703 July, [facility] [place] [facility] [address] [id number] [place] [address]- 8132 Jun, [facility] [place] [facility] [address] [id number] [place] [address]- 6678 Jun, [facility] [place] [facility] [address] [id number] [place] [address]- 4309 18 Jun, 2013 [facility] [place] [facility] [address] [id number] [place] 0188 16 Jun, 2013 [facility] [place] [facility] [address] [id number] [place] [address]- 6622 16 Jun, 2013 [facility] [place] [facility] [address] [id number] [place] [address]- 8263 08 Jun, 2013 [facility] [place] [facility] [address] [id number] [place] [address]- 0455 08 Jun, 2013 [facility] [place] [facility] [address] [id number] [place] [address]- 8692 17 May, 2013 [facility] [place] [facility] [address] [id number] [place] [address]- 2757 17 May, 2013 [facility] [place] [facility] [address] [id number] [place] [address]- 3255 14 May, 2013 [facility] [place] [facility] [address] [id number] [place] [address]- 7472 14 May, 2013 [facility] [place] [facility] [address] [id number] [place] [address]- 6114 13 May, 2013 [facility] [place] [facility] [address] [id number] [place] [address]- 7907 13 May, 2013 [facility] [place] [facility] [address] [id number] [place] [address]- 4008 10 May, 2013 [facility] [place] [facility] [address] [id number] [place] [address]- 6274 10 May, 2013 [facility] [place] [facility] [address] [id number] [place] [address]- 7050 07 May, 2013 [facility] [place] [facility] [address] [id number] [place] [address]- 9903 Apr, [facility] [place] [facility] [address] [id number] [place] [address]- 9300 Apr, [facility] [place] [facility] [address] [id number] [place] [address]- 7493 18 Apr, 2013 [facility] [place] [facility] [address] [id number] [place] [address]- 4536 Apr, [facility] [place] [facility] [address] [id number] [place] [address]- 6986 Apr, [facility] [place] [facility] [address] [id number] [place] [address]- 5394 Apr, [facility] [place] [facility] [address] [id number] [place] [address]- 7235 Apr, [facility] [place] [facility] [address] [id number] [place] [address]- 1052 Apr, [facility] [place] [facility] [address] [id number] [place] [address]- 5570 Apr, [facility] [place] [facility] [address] [id number] [place] [address]- 5759 Apr, [facility] [place] [facility] [address] [id number] [place] [address]- 2691 Mar, [facility] [place] [facility] [address] [facility] [id number] [place] [address]- 2288 Mar, [facility] [place] [facility] [address] [facility] [id number] [place] [address]- 3827 Mar, [facility] [place] [facility] [address] [id number] [place] [address]- 6406 Mar, [facility] [place] [facility] [address] [id number] [place] [address]- 1783 Mar, [facility] [place] [facility] [address] [id number] [place] [address]- 8920 Mar, [facility] [place] [facility] [address] [id number] [place] [address]- 4968 Mar, [facility] [place] [facility] [address] [id number] [place] [address]- 4465 Mar, [facility] [place] [facility] [address] [id number] [place] [address]- 5909 Feb, [facility] [place] [facility] [address] [id number] [place] [address]- 8317 Feb, [facility] [place] [facility] [address] [id number] [place] [address]- 5330 Jan, [facility] [place] [facility] [address] [id number] [place] [address]- 5125 Jan, [facility] [place] [facility] [address] [id number] [place] [address]- 6152 Jan, [facility] [place] [facility] [address] [id number] [place] [address]- 5745 15 Jan, 2013 [facility] [place] [facility] [address] [id number] [place] [address]- 1006 Jan, [facility] [place] [facility] [address] [id number] [place] [address]- 4847 Jan, [facility] [place] [facility] [address] [id number] [place] [address]- 0130 05 Jan, 2013 [facility] [place] [facility] [address] [id number] [place] [address]- 3351 05 Jan, 2013 [facility] [place] [facility] [address] [id number] [address]- 1650 13 Dec, 2012 [facility] [place] [facility] [address] [id number] [address]- 2771 10 Dec, 2012 [facility] [place] [facility] [address] [id number] [place] [address]- 4650 10 Dec, 2012 [facility] [place] [facility] [address] [id number] [address]- 0803 20 Nov, 2012 [facility] [place] [facility] [address] [id number] [place] [address]- 2507 13 Nov, 2012 [facility] [place] [facility] [address] [id number] [place] [address]- 4190 12 Nov, 2012 [facility] [address] [id number] [place] [address]- 7058 Nov, [facility] [place] [facility] [address] [id number] [place] [address]- 6086 Nov, [facility] [address] [id number] [place] [address]- 1409 Nov, [facility] [address] [id number] [place] [address]- 0104 Oct, [facility] [address] [id number] [place] [address]- 2120 Oct, [facility] [address] [id number] [place] [address]- 3640 Sep, [facility] [address] [id number] [place] [address]- 8130 Sep, [facility] [address] [id number] [place] [address]- 5615 Sep, [facility] [address] [id number] [place] [address]- 5740 Sep, [facility] [address] [id number] [place] [address]- 2545 Sep, [facility] [place] [facility] [address] [id number] [place] [address]- 3429 Sep, [facility] [address] [id number] [place] [address]- 3949 Sep, [facility] [place] [facility] [address] [id number] [place] [address]- 1003 Aug, [facility] [place] [facility] [address] [id number] [place] [address]- 5426 14 Aug, 2012 [facility] [place] [facility] [address] [id number] [place] 4646 Aug, [facility] [address] [id number] [place] [address]- 7904 Aug, [facility] [place] [facility] [address] [id number] [place] [address]- 0113 Aug, [facility] [place] [facility] [address] [id number] [place] [address]- 9310 Aug, [facility] [place] [facility] [address] [id number] [place] [address]- 2648 July, [facility] [address] [id number] [place] [address]- 8822 July, [facility] [place] [facility] [address] [id number] [place] [address]- 1243 July, [facility] [place] [facility] [address] [id number] [place] [address]- 4041 July, [facility] [place] [facility] [address] [id number] [place] [address]- 8554 July, [facility] [place] [facility] [address] [id number] [place] [address]- 9157 July, [facility] [place] [facility] [address] [id number] [place] [address]- 7126 Jun, [facility] [place] [facility] [address] [id number] [place] [address]- 8970 Jun, [facility] [place] [facility] [address] [id number] [address]- 9143 Jun, [facility] [place] [facility] [address] [id number] [place] [address]- 2038 Jun, [facility] [place] [facility] [address] [id number] [place] [address]- 7748 Jun, [facility] [place] [facility] [address] [id number] [place] [address]- 8588 Jun, [facility] [place] [facility] [address] [id number] [address]- 7040 Jun, [facility] [address] [id number] [place] [address]- 0486 May, [facility] [place] [facility] [address] [id number] [place] [address]- 7946 May, [facility] [place] [facility] [address] [id number] [place] [address]- 8266 26 Apr, 2012 [facility] [place] [facility] [address] [id number] [place] [address] 2546 Apr, 2012 [facility] [place] [facility] [address] [id number] [place] [address]- 6736 Apr, 2012 [facility] [place] [facility] [address] [id number] [place] [address] 2546 Apr, 2012 [facility] [place] [facility] [address] [id number] [place] [address]- 1596 12 Apr, 2012 [facility] [place] [facility] [address] [id number] [place] [address] 2540 08 Apr, 2012 [facility] [place] [facility] [address] [id number] [place] [address]- 0106 07 Apr, 2012 [facility] [place] [facility] [address] [facility] [id number] [place] [address]- 7941 07 Apr, 2012 [facility] [place] [facility] [address] [id number] [place] [address] 2546 06 Apr, 2012 [facility] [place] [facility] [address] [id number] [place] [address] 2546 Apr, [facility] [place] [facility] [address] [id number] [place] [address] 2546 Apr, [facility] [place] [facility] [address] [id number] [place] [address] 2546 Mar, [facility] [place] [facility] [address] [id number] [place] [address]- 3211 Mar, [facility] [address] [id number] [place] [address]- 0110 Mar, [facility] [address] [id number] [place] [address] Mar, [facility] [address] [id number] [place] [address] Mar, [facility] [address] [id number] [place] [address] Mar, [facility] [address] [id number] [place] [address] Mar, [facility] [address] [id number] [place] [address] Mar, [facility] [address] [id number] [place] [address] Mar, [facility] [address] [id number] [place] [address] Mar, [facility] [address] [id number] [place] [address] Mar, [facility] [address] [id number] [address] Mar, [facility] [place] [facility] [address] [id number] [address] Mar, [facility] [place] [facility] [address] [id number] [address] Feb, [facility] [place] [facility] [address] [id number] [place] [address] Feb, [facility] [place] [facility] [address] [id number] [place] [address] Feb, [facility] [place] [facility] [address] [id number] [place] [address] Feb, [facility] [place] [facility] [address] [id number] [place] [address]- [address] 11 Feb, 2012 [facility] [place] [facility] [address] [id number] [place] [address] Feb, [facility] [place] [facility] [address] [id number] [place] [address]- [address] Feb, [facility] [place] [facility] [address] [id number] [place] [address]- [address] Feb, [facility] [place] [facility] [address] [id number] [place] [address] Feb, [facility] [place] [facility] [address] [id number] [place] [address] Feb, [facility] [place] [facility] [address] [id number] [place] [address]- [address] Feb, [facility] [place] [facility] [address] [id number] [place] [address] Feb, [facility] [place] [facility] [address] [id number] [place] [address] Feb, [facility] [place] [facility] [address] [id number] [place] [address]- [address] Feb, [facility] [place] [facility] [address] [facility] [id number] [place] [address] Feb, [facility] [place] [facility] [address] [id number] [place] [address] Jan, [facility] [place] [facility] [address] [id number] [place] [address] 2546 Jan, [facility] [place] [facility] [address] [id number] [place] [address] Jan, [facility] [place] [facility] [address] [id number] [place] [address] Jan, [facility] [place] [facility] [address] [id number] [place] [address] 29 Dec, 2011 [facility] [place] [facility] [address] [id number] [place] [address] Dec, [facility] [place] [facility] [address] [id number] [place] [address] Dec, [facility] [place] [facility] [address] [id number] [place] [address] Dec, [facility] [place] [facility] [address] [id number] [place] [address] Dec, [facility] [place] [facility] [address] [id number] [place] [address] 1991 Dec, [facility] [place] [facility] [address] [id number] [place] [address] Dec, [facility] [place] [facility] [address] [id number] [place] [address] Dec, [facility] [place] [facility] [address] [id number] [place] [address] Dec, [facility] [place] [facility] [address] [id number] [place] [address] Dec, [facility] [place] [facility] [address] [id number] [place] [address] Dec, [facility] [place] [facility] [address] [id number] [place] [address] 25 Nov, 2011 [facility] [place] [facility] [address] [id number] [place] [address] 24 Sep, 2011 [facility] [place] [facility] [address] [id number] [place] [address] 20 Sep, 2011 [facility] [place] [facility] [address] [id number] [place] [address] 19 Sep, 2011 [facility] [place] [facility] [address] [id number] [place] [address] 17 Sep, 2011 [facility] [place] [facility] [address] [id number] [place] [address]- [address] 16 Sep, 2011 [facility] [place] [facility] [address] [id number] [place] [address]- [address] 14 Sep, 2011 [facility] [place] [facility] [address] [id number] [place] [address]- [address] 13 Sep, 2011 [facility] [place] [facility] [address] [id number] [place] [address] 12 Sep, 2011 [facility] [place] [facility] [address] [id number] [place] [address] 07 Sep, 2011 [facility] [place] [facility] [address] [id number] [place] [address]- 1136 06 Sep, 2011 [facility] [place] [facility] [address] [id number] [place] [address]- [address] 06 Sep, 2011 [facility] [place] [facility] [address] [id number] [place] [address]- [address] 05 Nov, 2011 [facility] [place] [facility] [address] [id number] [place] [address]- [address] 29 Oct, 2011 [facility] [place] [facility] [address] [id number] [place] [address]294 29 Oct, 2011 [facility] [place] [facility] [address] [id number] [place] [address]- [address]163 28 Oct, 2011 [facility] [place] [facility] [address] [id number] [place] [address]- [address] 28 Oct, 2011 [facility] [place] [facility] [address] [id number] [place] [address] 23 Oct, 2011 [facility] [place] [facility] [address] [id number] [place] [address] Oct, [facility] [place] [facility] [address] [id number] [place] [address] Oct, [facility] [place] [facility] [address] [id number] [place] [address] 16 Oct, 2011 [facility] [place] [facility] [address] [id number] [place] [address] 15 Oct, 2011 [facility] [address] [id number] [place] [address] Oct, [facility] [address] [id number] [place] [address] Oct, [facility] [address] [id number] [place] [address] Sep, [facility] [address] [id number] [place] [address] Sep, [facility] [address] [id number] [place] [address] Sep, [facility] [address] [id number] [place] [address] Sep, [facility] [address] [id number] [place] [address] Sep, [facility] [address] [id number] [place] [address] Sep, [facility] [address] [id number] [place] [address] Aug, [facility] [address] [id number] [place] [address] July, [facility] [address] [id number] [place] [address] July, [facility] [address] [id number] [place] [address] Jun, [facility] [place] [facility] [address] [id number] [place] [address] Jun, [facility] [place] [facility] [address] [id number] [place] [address] Jun, [facility] [address] [id number] [place] [address] Jun, [facility] [address] [id number] [place] [address]13 10 Jun, 2011 [facility] [place] [facility] [address] [id number] [place] [address] Jun, [facility] [place] [facility] [address] [id number] [place] [address] Jun, [facility] [place] [facility] [address] [id number] [place] [address] 08 Jun, 2011 [facility] [place] [facility] [address] [id number] [place] [address] Jun, [facility] [place] [facility] [address] [id number] [place] [address] Jun, [facility] [place] [facility] [address] [id number] [place] [address] Jun, [facility] [place] [facility] [address] [id number] [place] [address] May, [facility] [place] [facility] [address] [id number] [place] [address] 16 May, 2011 [facility] [place] [facility] [address] [id number] [place] [address] 14 May, 2011 [facility] [place] [facility] [address] [id number] [place] [address] 06 May, 2011 [facility] [place] [facility] [address] [id number] [place] [address] Apr, [facility] [place] [facility] [address] [id number] [place] [address] Apr, [facility] [place] [facility] [address] [id number] [place] [address] 27 Apr, 2011 [facility] [place] [facility] [address] [id number] [place] [address] 23 Apr, 2011 [facility] [place] [facility] [address] [id number] [place] [address] Apr, [facility] [address] [id number] [place] [address] Apr, [facility] [address] [id number] [place] [address] Apr, [facility] [address] [id number] [place] [address] Apr, [facility] [address] [id number] [place] [address] Mar, [facility] [address] [id number] [place] [address] Mar, [facility] [address] [id number] [place] [address]181 Mar, [facility] [address] [id number] [place] [address] Mar, [facility] [address] [id number] [place] [address] Mar, [facility] [address] [id number] [place] [address] Mar, [facility] [address] [id number] [place] [address] 65[address] Mar, [facility] [address] [id number] [place] [address] Mar, [facility] [address] [id number] [place] [address] Mar, [facility] [address] [id number] [place] [address] Mar, [facility] [address] [id number] [place] [address] Mar, [facility] [address] [id number] [place] [address] Mar, [facility] [place] [facility] [address] [id number] [place] [address] Mar, [facility] [place] [facility] [address] [id number] [place] [address] Mar, [facility] [place] [facility] [address] [id number] [place] [address] Mar, [facility] [place] [facility] [address] [id number] [place] [address] Mar, [facility] [place] [facility] [address] [id number] [place] [address] Feb, [facility] [place] [facility] [address] [id number] [place] [address] 8313 Feb, [facility] [place] [facility] [address] [id number] [place] [address] 58[address] Feb, [facility] [place] [facility] [address] [id number] [place] [address] Jan, [facility] [place] [facility] [address] [id number] [place] [address] Jan, [facility] [place] [facility] [address] [id number] [address] Jan, [facility] [place] [facility] [address] [id number] [address] Dec, [facility] [place] [facility] [address] [id number] [address] Dec, [facility] [place] [facility] [address] [id number] [place] [address] Nov, [facility] [place] [facility] [address] [id number] [place] [address] Oct, [facility] [place] [facility] [address] [id number] [address] Oct, [facility] [place] [facility] [address] [id number] [place] [address] Oct, [facility] [address] [facility] [id number] [address] Sep, [facility] [address] [facility] [id number] [address] Apr, [facility] [address] [facility] [id number] [address] Feb, [facility] [address] [facility] [id number] [address] Jan, IMMUNIZATIONS No Known Immunizations SOCIAL HISTORY Never Assessed REASON FOR VISIT f/u PLAN OF CARE Activity Details Follow Up Every 2 weeks, 1/2 hour session. 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 Hospitalization History for COPD x2 Mar 2017 Hospitalization History Upper GI bleed at apr 2017 Hospitalization History [facility]- COPD Exacerbation, diarrhea 05/23/2017 Hospitalization History COPD exacerbation-[facility] 06/13/17
--- OUTSIDE RECORDS SUMMARY | 2017-08-04 18:11 | XMS REPORT ---
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 Active Problem Thrush B37.0 Active 92107599 Problem TMJ (sprain of temporomandibular joint) S03.4XXA Active 81299164 Problem Anxiety F41.9 Active 33471866 Problem Tobacco abuse Z72.0 Active 71993446 Problem Non morbid obesity due to excess calories E66.09 Active 794471770 Problem Migraine G43.909 Active 24345224 Problem History of MRSA infection Z86.14 Active 154138091 Problem Knee pain, left M25.562 Active 06000752 Problem Obesity, unspecified obesity severity, unspecified obesity type E66.9 Active 977027008 Problem Migraine without aura and without status migrainosus, not intractable G43.009 Active 492977231 Problem Other emphysema J43.8 Active 97729498 Problem Intractable cyclical vomiting with nausea G43.A1 Active 54010273 Problem Viral illness B34.9 Active 32181755 Problem Dry mouth R68.2 Active 01106702 Problem Encounter for tobacco use cessation counseling Z71.6 Active 892096820 Problem Acute bronchitis with COPD J44.0 Active [id number] Problem Methamphetamine use disorder, moderate, 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 Active 05537765 Problem Chronic bronchitis, unspecified chronic bronchitis type J42 Active 43413749 Problem COPD exacerbation J44.1 Active 275672265 Problem Diabetes E11.9 Active 147884065 Problem Memory loss R41.3 Active 13379146 Problem Left knee pain M25.562 Active 32416258 Problem Chronic constipation K59.09 Active 948520273 Problem Yeast vaginitis B37.3 Active 26143001 Problem Generalized anxiety disorder F41.1 Active 63814345 Problem Bipolar disorder with depression F31.30 Active 73296647 Problem Bipolar disorder, unspecified F31.9 Active 62251141 Problem Bipolar disorder, current episode depressed, severe, without psychotic features F31.4 Active 14468605 ALLERGIES No Information ENCOUNTERS Encounter Location Date Diagnosis [facility] [id number] [place] [address] 46197- 5156 Jun, [facility] [address] 27229- 7237 21 May, 2017 [facility] [address] 41278- 1794 May, [facility] [address] 14702 -8442 17 May, 2017 [facility] [id number] [place] [address] 02846- 0640 16 May, 2017 [facility] [id number] [place] [address] 88400- 9239 15 May, 2017 [facility] [id number] [place] [address] 59326- 9302 14 May, 2017 Diarrhea, unspecified type R19.7 and Intractable cyclical vomiting with nausea G43.A1 [facility] [id number] [place] [address] 52538- 3968 12 May, 2017 [facility] [id number] [place] [address] 55753- 3836 05 May, 2017 [facility] [address] 00571- 5880 28 Apr, 2017 COPD exacerbation J44.1 ; Esophageal candidiasis B37.81 ; Other acute gastritis with hemorrhage K29.01 and Acute posthemorrhagic anemia D62 [facility] [id number] [address] Apr, Viral illness B34.9 and COPD exacerbation J44.1 [facility] [id number] [place] [address] 44378 -3561 Apr, Shortness of breath R06.02 and Pneumonia of both lower lobes due to infectious organism J18.9 [facility] [id number] [place] [address] 80705 -3953 Mar, COPD with acute exacerbation J44.1 [facility] [id number] [place] [address] 97911- 7193 Mar, Chronic obstructive pulmonary disease with acute exacerbation J44.1 and Diabetes E11.9 [facility] [id number] [place] [address] 03970- 7280 Mar, [facility] [id number] [place] [address] 84675- 8509 Mar, [facility] [id number] [place] [address] 73215 -9737 Mar, COPD exacerbation J44.1 [facility] [id number] [place] [address] 83412- 5948 Mar, [facility] [id number] [place] [address] 38472- 8913 Mar, Migraine G43.909 ; Hypokalemia E87.6 and Type 2 diabetes mellitus without complications E11.9 [facility] [id number] [place] [address] 24044- 2937 Feb, [facility] [id number] [place] [address] 24423- 7758 Feb, [facility] [id number] [place] [address] 67015- 0708 Feb, Methamphetamine use disorder, moderate, 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 ; Major depressive disorder, recurrent, moderate F33.1 ; Anxiety disorder, unspecified F41.9 and Tobacco abuse Z72.0 [facility] [address] [place] [address] 77025- 6866 30 Jan, 2017 Major depressive disorder, recurrent, moderate F33.1 [facility] [id number] [place] [address] 99538- 5715 16 Jan, 2017 [facility] [id number] [place] [address] 77235- 7850 14 Jan, 2017 [facility] [id number] [place] [address] 17980- 2331 Jan, Major depressive disorder, recurrent, moderate F33.1 [facility] [id number] [place] [address] 99604- 2938 Jan, Major depressive disorder, recurrent, moderate F33.1 ; Anxiety disorder, unspecified F41.9 ; Methamphetamine use disorder, moderate, 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 and Tobacco abuse Z72.0 [facility] [id number] [place] [address] 19873- 3223 07 Jan, 2017 [facility] [id number] [place] [address] 51710- 8667 Jan, Chronic obstructive pulmonary disease with acute exacerbation J44.1 and Diabetes E11.9 [facility] [id number] [place] [address] 33252- 9922 Jan, [facility] [id number] [place] [address] 98659- 3469 Jan, [facility] [id number] [place] [address] 47486- 2934 Dec, Acute respiratory failure with hypoxia J96.01 and Chronic bronchitis, unspecified chronic bronchitis type J42 [facility] [id number] [place] [address] 18321- 6581 Dec, [facility] [address] [place] [address] [id number] Nov, Dental caries K02.9 and Dental examination Z01.20 [facility] [address] [address]- 6772 05 Nov, 2016 Major depressive disorder, recurrent, moderate F33.1 ; Anxiety disorder, unspecified F41.9 and 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 [facility] [address] [id number] Oct, Dental examination Z01.20 [facility] [id number] [place] [address] 19046- 5592 Oct, [facility] [id number] [place] [address] 51897- 9405 Oct, Diabetes E11.9 and Thrush B37.0 [facility] [id number] [place] [address] 97600- 6471 Oct, [facility] [id number] [place] [address] 03229- 3171 Oct, [facility] [id number] [place] [address] 04930- 7819 Oct, [facility] [id number] [place] [address] 14973- 6953 Sep, Major depressive disorder, recurrent, moderate F33.1 ; Anxiety disorder, unspecified F41.9 and Bipolar disorder, unspecified F31.9 [facility] [id number] [place] [address] 75179- 6561 Sep, Acute exacerbation of chronic obstructive pulmonary disease (COPD) J44.1 and Migraine G43.909 [facility] [id number] [place] [address] 42503- 8281 Sep, [facility] [id number] [place] [address] [id number] Sep, [facility] [address] [place] [address] 29481- 1663 Sep, Acute exacerbation of chronic obstructive pulmonary disease (COPD) J44.1 [facility] [address] [place] [address] 03539 -1656 15 Sep, 2016 Acute exacerbation of chronic obstructive pulmonary disease (COPD) J44.1 [facility] [id number] [place] [address] 21300- 1252 29 Aug, 2016 [facility] [id number] [place] [address] 92298- 6993 20 Aug, 2016 Major depressive disorder, recurrent, moderate F33.1 ; Anxiety disorder, unspecified F41.9 and 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 [facility] [address] 26488- 6396 19 Aug, 2016 Wheezing R06.2 ; Non morbid obesity due to excess calories E66.09 ; Migraine without aura and without status migrainosus, not intractable G43.009 and Tobacco abuse Z72.0 [facility] [id number] [place] [address] [id number] 14 Aug, 2016 Encounter for dental examination Z01.20 [facility] [id number] [place] [address] 37580- 4806 02 Aug, 2016 Major depressive disorder, recurrent, moderate F33.1 ; Anxiety disorder, unspecified F41.9 and 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 [facility] [address] [place] [address] 70163- 3470 July, [facility] [id number] [place] [address] 25923- 9717 July, [facility] [id number] [place] [address] 71123- 1399 July, [facility] [id number] [place] [address] 39559- 2186 July, Diabetes E11.9 [facility] [id number] [place] [address] 11571- 2966 Jun, Major depressive disorder, recurrent, moderate F33.1 [facility] [id number] [place] [address] 70929- 2864 Jun, Major depressive disorder, recurrent, moderate F33.1 ; 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 ; Generalized anxiety disorder F41.1 and Bipolar disorder, unspecified F31.9 [facility] [id number] [place] [address] 86340- 1935 Jun, Diabetes E11.9 ; Migraine G43.909 ; Thrush B37.0 and Wheezing R06.2 [facility] [address] [id number] Jun, Dental examination Z01.20 [facility] [address] 40089- 6153 Jun, [facility] [address] 69154- 3698 Jun, Major depressive disorder, recurrent, moderate F33.1 ; Anxiety disorder, unspecified F41.9 and 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 [facility] [address] 58465- 9912 Jun, [facility] [id number] [place] [address] 88492- 9489 Jun, Wheezing R06.2 [facility] [address] [id number] Jun, Dental caries K02.9 [facility] [address] 92595- 9355 Jun, Major depressive disorder, recurrent, moderate F33.1 ; Anxiety disorder, unspecified F41.9 and 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 [facility] [address] 55272- 7080 Jun, RLQ abdominal pain R10.31 ; Diabetes E11.9 ; Obesity, unspecified obesity severity, unspecified obesity type E66.9 ; Wheezing R06.2 and Abnormal urinalysis R82.90 [facility] [id number] [place] [address] 49846- 0944 May, [facility] [id number] [place] [address] 25939- 9382 May, Well woman exam Z01.419 ; Breast cancer screening Z12.39 ; Cervical cancer screening Z12.4 ; Urinary frequency R35.0 ; Edema, unspecified type R60.9 and Chronic constipation K59.09 [facility] [id number] [place] [address] 44558- 6114 May, Major depressive disorder, recurrent, moderate F33.1 ; Anxiety disorder, unspecified F41.9 and 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 [facility] [id number] [place] [address] [id number] May, Dental examination Z01.20 [facility] [id number] [place] [address] 70353- 6761 May, [facility] [address] 81830- 6547 May, [facility] [id number] [place] [address] 92734- 2001 May, Chronic constipation K59.09 [facility] [id number] [place] [address] 49268- 5211 Apr, [facility] [id number] [place] [address] 82849- 4322 Apr, Major depressive disorder, recurrent, moderate F33.1 ; Anxiety disorder, unspecified F41.9 and 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 [facility] [id number] [place] [address] 77796- 2830 Apr, [facility] [id number] [place] [address] 84959- 8314 Mar, Major depressive disorder, recurrent, moderate F33.1 [facility] [id number] [place] [address] 51631- 8598 Mar, Major depressive disorder, recurrent, moderate F33.1 ; Generalized anxiety disorder F41.1 and Bipolar I disorder, most recent episode depressed with anxious distress F31.30 [facility] [id number] [place] [address] 52521- 3786 Mar, Diabetes E11.9 ; Non morbid obesity due to excess calories E66.09 ; Breast cancer screening Z12.39 and Encounter for immunization Z[id number] [place] [address] 41386- 1905 Mar, Major depressive disorder, recurrent, moderate F33.1 ; Anxiety disorder, unspecified F41.9 and 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 [facility] [id number] [place] [address] 92068- 8823 Mar, [facility] [id number] [place] [address] 52967- 1656 Feb, Major depressive disorder, recurrent, moderate F33.1 ; Anxiety disorder, unspecified F41.9 and 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 [facility] [id number] [place] [address] 35388- 2796 Feb, [facility] [id number] [place] [address] 11136- 0788 Feb, [facility] [id number] [place] [address] 97305- 9960 Jan, Major depressive disorder, recurrent, moderate F33.1 ; Generalized anxiety disorder F41.1 and Bipolar disorder, current episode depressed, severe, without psychotic features F31.4 [facility] [id number] [place] [address] 34084- 5466 Jan, Major depressive disorder, recurrent, moderate F33.1 ; Anxiety disorder, unspecified F41.9 and 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 [facility] [address] [address]- 6843 Jan, Bronchitis J40 [facility] [address] [place] [address] 43252- 2219 Jan, [facility] [address] [place] [address] 84215- 4170 Jan, [facility] [address] [place] [address] 54543- 1706 Jan, Elbow injury, right, initial encounter S59.901A ; Multiple contusions T14.8 and Cervical strain, acute, initial encounter S16.1XXA [facility] [address] [place] [address] 59851- 8774 Dec, Major depressive disorder, recurrent, moderate F33.1 ; Generalized anxiety disorder F41.1 and Bipolar disorder with depression F31.30 [facility] [address] [place] [address] 55900- 6948 Dec, [facility] [id number] [place] [address] 89453- 3982 Dec, [facility] [address] [place] [address] 47664- 4371 Dec, [facility] [address] [place] [address] 18803- 9730 Dec, [facility] [address] [place] [address] 22505- 9592 Dec, Yeast infection B37.9 [facility] [address] [place] [address] 86393- 1536 Dec, Pneumonia of both lungs due to methicillin resistant Staphylococcus aureus (MRSA), unspecified part of lung J15.212 and Benzodiazepine overdose, accidental or unintentional, subsequent encounter T42.4X1D [facility] [address] [place] [address] 34501- 5752 Dec, [facility] [id number] [place] [address] 58189- 6801 Dec, [facility] [id number] [place] [address]- [address]25 Dec, Knee pain, left M25.562 and Edema, unspecified type R60.9 [facility] [address] 106250- 2673 Dec, [facility] [id number] [place] [address] 62450- 4633 Dec, Anxiety disorder, unspecified F41.9 and Bipolar disorder, unspecified F31.9 [facility] [id number] [place] [address] 83439- 4507 Nov, Major depressive disorder, recurrent, moderate F33.1 ; Anxiety disorder, unspecified F41.9 and 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 [facility] [id number] [place] [address] 12905- 3794 Nov, [facility] [id number] [place] [address] 48274- 0526 Nov, Migraine without aura and without status migrainosus, not intractable G43.009 [facility] [id number] [place] [address] 15267- 0303 Nov, Migraine G43.909 [facility] [id number] [place] [address] 43524- 4820 Nov, [facility] [id number] [place] [address] 70284- 5694 Nov, Major depressive disorder, recurrent, moderate F33.1 ; Anxiety disorder, unspecified F41.9 and 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 [facility] [id number] [place] [address] 85448- 5903 Oct, Chronic constipation K59.09 and Obesity, unspecified obesity severity, unspecified obesity type E66.9 [facility] [id number] [place] [address] 15289- 3173 Oct, Obesity, unspecified obesity severity, unspecified obesity type E66.9 ; Chronic constipation K59.09 and Anxiety disorder, unspecified F41.9 [facility] [id number] [place] [address] 29266- 4461 Oct, [facility] [id number] [place] [address] 29831- 8125 Sep, Diabetes E11.9 ; Edema, unspecified type R60.9 ; Varicose vein of leg I83.90 and Obesity, unspecified obesity severity, unspecified obesity type E66.9 [facility] [id number] [place] [address] 86411- 3793 Sep, Edema, unspecified type R60.9 ; Diabetes E11.9 and Knee pain , left M25.562 [facility] [id number] [place] [address] 04012- 7777 Sep, [facility] [id number] [place] [address] 44241- 4758 Sep, [facility] [id number] [place] [address] 85063- 8278 Sep, Major depressive disorder, recurrent, moderate F33.1 ; Generalized anxiety disorder F41.1 and Bipolar disorder, unspecified F31.9 [facility] [id number] [place] [address] 90203- 5594 Aug, Chondromalacia of left knee M94.262 [facility] [id number] [place] [address] 89061- 9344 Aug, Major depressive disorder, recurrent, moderate F33.1 ; Anxiety disorder, unspecified F41.9 and 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 [facility] [id number] [place] [address] 56160- 7247 Aug, [facility] [address] [place] [address] 89038- 6916 Aug, Osteoarthritis of left knee M17.9 [facility] [id number] [place] [address] 30934- 4902 Aug, [facility] [id number] [place] [address] 83690- 2793 July, Major depressive disorder, recurrent, moderate F33.1 ; Anxiety disorder, unspecified F41.9 and 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 [facility] [id number] [place] [address] 90977- 2218 July, [facility] [id number] [place] [address] 66376- 9550 July, Chronic constipation K59.09 [facility] [id number] [place] [address] 70876- 2248 Jun, [facility] [id number] [place] [address] 93008- 6527 Jun, [facility] [id number] [place] [address] 29253- 0768 14 Jun, 2015 Osteoarthritis of left knee M17.9 [facility] [id number] [place] [address] 35536- 9898 Jun, [facility] [id number] [place] [address] 45720- 7803 Jun, Generalized anxiety disorder F41.1 ; Bipolar disorder, unspecified F31.9 and Major depressive disorder, recurrent, moderate F33.1 [facility] [id number] [place] [address] 55566- 4186 07 Jun, 2015 Migraine G43.909 [facility] [address] [place] [address] 95956- 9478 07 Jun, 2015 Left knee pain M25.562 ; Chronic constipation K59.09 ; Dry mouth R68.2 ; Yeast vaginitis B37.3 and Memory loss R41.3 [facility] [address] [place] [address] [id number] [place] [address] 50346- 5699 Jun, [place] [address] [place] [id number] [place] [address] 56368- 5467 May, [place] [address] [address]- [address]79 May, [place] [address] [address]- [address] May, [place] [address] [address]- [address] May, [place] [address] 91094- [address]607 May, Acute bronchitis with COPD J44.0 ; Knee pain, left M25.562 and Encounter for tobacco use cessation counseling Z71.6 [place] [address] [address] [id number] [place] [address] 87242- 4733 May, [place] [address] [place] [id number] [place] [address] 25637- 7808 Apr, Diabetes E11.9 ; TMJ (sprain of temporomandibular joint) S03.4XXA ; Tobacco abuse Z72.0 ; Migraine G43.909 and Anxiety F41.9 [place] [address] [place] [id number] [place] [address] 71610- 3557 Apr, Generalized anxiety disorder F41.1 and Bipolar disorder, unspecified F31.9 [place] [id number] [place] [address] 63512- 5260 Apr, Major depressive disorder, recurrent, moderate F33.1 ; Anxiety disorder, unspecified F41.9 and 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 [place] [address] [address]- 3408 Apr, [facility] [address] [address] 2178 Mar, [facility] [id number] [place] [address] 47292- 3450 Feb, [facility] [id number] [place] [address] 01205- 4906 Feb, Major depressive disorder, recurrent, moderate F33.1 ; Anxiety disorder, unspecified F41.9 and 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 [facility] [id number] [place] [address] 14782- 6376 Feb, [facility] [id number] [place] [address] 99646- 6890 Feb, Generalized anxiety disorder F41.1 and Bipolar disorder, unspecified F31.9 [facility] [id number] [place] [address] 90482- 8668 Jan, [facility] [id number] [place] [address] 36362- 0923 Jan, [facility] [id number] [place] [address] 12946- 7451 Jan, Bipolar disorder, unspecified F31.9 and Generalized anxiety disorder F41.1 [facility] [address] [place] [address] 63586- 0615 Dec, [facility] [id number] [place] [address] 85676- 6177 Dec, Bipolar disorder, unspecified F31.9 and Generalized anxiety disorder F41.1 [facility] [address] [place] [address] 47545- 7938 Dec, Generalized anxiety disorder F41.1 and Major depressive disorder, recurrent, moderate F33.1 [facility] [address] [place] [address] 27961- 4687 Oct, Headache 784.0 ; Cough 786.2 ; Vomiting and diarrhea 787.03 and Dysuria 788.1 [facility] [id number] [place] [address] 45019- 1152 Aug, [facility] [id number] [place] [address] 41640- 9080 Aug, Headache 784.0 and Shortness of breath 786.05 [facility] [id number] [place] [address] 72923- 3093 Aug, [facility] [id number] [place] [address] 82871- 6707 Aug, Migraine 346.90 [facility] [id number] [place] [address] 57263- 0423 Jun, [facility] [id number] [place] [address] 87512- 5407 Jun, [facility] [id number] [place] [address] 18302- 6999 May, [facility] [id number] [place] [address] 16516- 7977 May, [facility] [id number] [place] [address] 47542- 2523 May, [facility] [address] [address]- 6847 May, [facility] [address] [place] [address] 33350- 2994 May, [facility] [address] [place] [address] 04437- 2554 May, [facility] [id number] [place] [address] 958937- 7227 Apr, [facility] [address] [address] 1723 Apr, [facility] [id number] [address]- 0387 04 Apr, 2014 [facility] [address] [id number] [place] [address]- 8040 Apr, 2014 [facility] [address] [id number] [place]6 Apr, 2014 [facility] [address] [id number] [place] [address]- 2786 Mar, [facility] [address] [id number] [place] [address]- 4359 Mar, [facility] [address] [id number] [place] [address]- 2571 Mar, [facility] [address] [id number] [place] [address]- 1373 Mar, [facility] [address] [id number] [place] [address]- 3954 Feb, [facility] [address] [id number] [place] [address]- 9011 19 Feb, 2014 [facility] [address] [id number] [place] [address]- 9262 18 Feb, 2014 [facility] [address] [facility] [id number] [place] [address]- 0494 18 Feb, 2014 [facility] [place] [facility] [address] [id number] [place] [address]- 0539 16 Feb, 2014 [facility] [place] [facility] [address] [id number] [place] [address]- 9055 16 Feb, 2014 [facility] [place] [facility] [address] [id number] [place] [address]- 1563 11 Feb, 2014 [facility] [place] [facility] [address] [id number] [place] [address]- 2100 11 Feb, 2014 [facility] [place] [facility] [address] [id number] [place] [address]- 5356 Feb, [facility] [place] [facility] [address] [id number] [place] [address]- 8787 Feb, [facility] [place] [facility] [address] [id number] [place] 7646 Feb, [facility] [place] [facility] [address] [id number] [place] [address]- 7358 Feb, [facility] [place] [facility] [address] [id number] [place] [address]- 4339 Jan, [facility] [place] [facility] [address] [id number] [place] [address]- 1160 Jan, [facility] [place] [facility] [address] [id number] [place] [address]- 3472 Dec, [facility] [place] [facility] [address] [id number] [place] [address]- 3928 Dec, [facility] [place] [facility] [address] [id number] [place] [address]- 2798 Dec, [facility] [place] [facility] [address] [id number] [place] [address]- 9905 Dec, [facility] [place] [facility] [address] [id number] [place] [address]- 4959 Dec, [facility] [place] [facility] [address] [id number] [place] [address]- 2660 Dec, [facility] [place] [facility] [address] [id number] [place] [address]- 3915 Sep, [facility] [place] [facility] [address] [id number] [place] [address]- 1316 Sep, [facility] [place] [facility] [address] [id number] [place] [address]- 3040 Sep, [facility] [place] [facility] [address] [id number] [place] [address]- 9834 Sep, [facility] [place] [facility] [address] [id number] [place] [address]- 7465 14 Sep, 2013 [facility] [place] [facility] [address] [id number] [place] [address]- 3385 14 Sep, 2013 [facility] [place] [facility] [address] [id number] [place] [address]- 9763 Sep, 2013 [facility] [place] [facility] [address] [id number] [place] [address]- 0162 Sep, 2013 [facility] [place] [facility] [address] [id number] [place] [address]- 1458 Sep, 2013 [facility] [place] [facility] [address] [id number] [place] [address]- 4653 Sep, [facility] [place] [facility] [address] [id number] [place] [address]- 6205 24 Aug, 2013 [facility] [place] [facility] [address] [id number] [place] [address]- 8400 Aug, [facility] [place] [facility] [address] [id number] [place] [address]- 1948 Aug, [facility] [place] [facility] [address] [id number] [place] [address]- 1042 Aug, [facility] [place] [facility] [address] [id number] [place] [address]- 7530 17 Aug, 2013 [facility] [place] [facility] [address] [id number] [place] [address]- 4729 Aug, [facility] [place] [facility] [address] [id number] [place] [address]- 4915 14 Aug, 2013 [facility] [place] [facility] [address] [id number] [place] [address]- 2929 Aug, [facility] [place] [facility] [address] [id number] [place] [address]- 0317 Aug, [facility] [place] [facility] [address] [id number] [place] [address]- 7329 05 Aug, 2013 [facility] [place] [facility] [address] [id number] [place] [address]- 3387 Aug, [facility] [place] [facility] [address] [id number] [place] [address]- 9810 Aug, [facility] [place] [facility] [address] [id number] [place] [address]- 5176 Aug, [facility] [place] [facility] [address] [id number] [place] [address]- 9228 July, [facility] [place] [facility] [address] [id number] [place] [address]- 7975 July, [facility] [place] [facility] [address] [id number] [place] [address]- 5156 July, [facility] [place] [facility] [address] [id number] [place] [address]- 7542 July, [facility] [place] [facility] [address] [id number] [place] [address]- 3399 July, [facility] [place] [facility] [address] [id number] [place] [address]- 6541 July, [facility] [place] [facility] [address] [id number] [place] [address]- 7860 July, [facility] [place] [facility] [address] [id number] [place] [address]- 2043 Jun, [facility] [place] [facility] [address] [id number] [place] [address]- 8687 Jun, [facility] [place] [facility] [address] [id number] [place] [address]- 8428 18 Jun, 2013 [facility] [place] [facility] [address] [id number] [place] [address]- 1065 Jun, [facility] [place] [facility] [address] [id number] [place] 3720 Jun, [facility] [place] [facility] [address] [id number] [place] [address]- 9812 Jun, [facility] [place] [facility] [address] [id number] [place] [address]- 3927 08 Jun, 2013 [facility] [place] [facility] [address] [id number] [place] [address]- 9791 17 May, 2013 [facility] [place] [facility] [address] [id number] [place] [address]- 6344 17 May, 2013 [facility] [place] [facility] [address] [id number] [place] [address]- 2800 14 May, 2013 [facility] [place] [facility] [address] [id number] [place] [address]- 3445 14 May, 2013 [facility] [place] [facility] [address] [id number] [place] [address]- 4704 13 May, 2013 [facility] [place] [facility] [address] [id number] [place] [address]- 8030 13 May, 2013 [facility] [place] [facility] [address] [id number] [place] [address]- 3352 10 May, 2013 [facility] [place] [facility] [address] [id number] [place] [address]- 3422 10 May, 2013 [facility] [place] [facility] [address] [id number] [place] [address]- 9325 07 May, 2013 [facility] [place] [facility] [address] [id number] [place] [address]- 4146 26 Apr, 2013 [facility] [place] [facility] [address] [id number] [place] [address]- 7917 Apr, [facility] [place] [facility] [address] [id number] [place] [address]- 9988 18 Apr, 2013 [facility] [place] [facility] [address] [id number] [place] [address]- 6534 15 Apr, 2013 [facility] [place] [facility] [address] [id number] [place] [address]- 9165 15 Apr, 2013 [facility] [place] [facility] [address] [id number] [place] [address]- 1803 Apr, [facility] [place] [facility] [address] [id number] [place] [address]- 8136 Apr, [facility] [place] [facility] [address] [id number] [place] [address]- 2456 Apr, [facility] [place] [facility] [address] [id number] [place] [address]- 0106 Apr, [facility] [place] [facility] [address] [id number] [place] [address]- 1286 Apr, [facility] [place] [facility] [address] [id number] [place] [address]- 4234 Mar, [facility] [place] [facility] [address] [id number] [place] [address]- 2900 Mar, [facility] [place] [facility] [address] [id number] [place] [address]- 5862 Mar, [facility] [place] [facility] [address] [id number] [place] [address]- 2099 Mar, [facility] [place] [facility] [address] [id number] [place] [address]- 2027 Mar, [facility] [place] [facility] [address] [facility] [id number] [place] [address]- 6261 Mar, [facility] [place] [facility] [address] [id number] [place] [address]- 7498 Mar, [facility] [place] [facility] [address] [id number] [place] [address]- 6799 Mar, [facility] [place] [facility] [address] [id number] [place] [address]- 0087 Feb, [facility] [place] [facility] [address] [id number] [place] [address]- 2618 Feb, [facility] [place] [facility] [address] [id number] [place] [address]- 3897 Jan, [facility] [place] [facility] [address] [id number] [place] [address]- 5085 18 Jan, 2013 [facility] [place] [facility] [address] [id number] [place] [address]- 9911 15 Jan, 2013 [facility] [place] [facility] [address] [id number] [place] [address]- 8891 15 Jan, 2013 [facility] [place] [facility] [address] [id number] [place] [address]- 7858 Jan, [facility] [place] [facility] [address] [id number] [place] [address]- 9416 Jan, [facility] [place] [facility] [address] [id number] [place] [address]- 7744 Jan, [facility] [place] [facility] [address] [id number] [place] [address]- 0896 Jan, [facility] [place] [facility] [address] [id number] [address]- 2310 Dec, [facility] [place] [facility] [address] [id number] [address]- 1979 10 Dec, 2012 [facility] [place] [facility] [address] [id number], [place] [address]- 0899 10 Dec, 2012 [facility] [place] [facility] [address] [id number], [place] [address]- 9769 20 Nov, 2012 [facility] [place] [facility] [address] [id number], [place] [address]- 0035 13 Nov, 2012 [facility] [place] [facility] [address] [id number], [place] [address]- 2649 12 Nov, 2012 [facility] [place] [facility] [address] [id number], [place] [address]- 4776 09 Sep2012 [facility] [place] [facility] [address] [id number], [place] [address]- 9826 06 Nov, 2012 [facility] [place] [facility] [address] [id number] [place] [address]- 7024 Nov, [facility] [address] [id number] [place] [address]- 6517 Oct, [facility] [place] [facility] [address] [id number] [place] [address]- 6476 Oct, [facility] [place] [facility] [address] [id number] [place] [address]- 1901 Sep, [facility] [place] [facility] [address] [id number] [place] [address]- 5059 Sep, [facility] [place] [facility] [address] [id number] [place] [address]- 7112 Sep, [facility] [place] [facility] [address] [id number] [place] [address]- 7284 Sep, [facility] [address] [id number] [place] [address]- 3005 Sep, [facility] [place] [facility] [address] [id number] [place] [address]- 8645 Sep, [facility] [place] [facility] [address] [id number] [place] [address]- 2588 Sep, [facility] [place] [facility] [address] [id number] [place] [address]- 6850 Aug, [facility] [place] [facility] [address] [id number] [place] [address]- 4625 14 Aug, 2012 [facility] [place] [facility] [address] [id number] [place] [address]- 7363 Aug, [facility] [place] [facility] [address] [id number] [place] [address]- 8297 Aug, [facility] [place] [facility] [address] [id number] [place] [address]- 3864 Aug, [facility] [place] [facility] [address] [id number] [place] [address]- 8371 Aug, [facility] [place] [facility] [address] [id number] [place] [address]- 4979 July, [facility] [address] [id number] [place] [address]- 1085 July, [facility] [address] [id number] [place] [address]- 4670 July, [facility] [address] [id number] [place] [address]- 9528 July, [facility] [address] [id number] [place] [address]- 3903 July, [facility] [address] [id number] [place] [address]- 5240 July, [facility] [address] [id number] [place] [address]- 1774 Jun, [facility] [address] [id number] [place] [address]- 3531 Jun, [facility] [address] [id number] [place] [address]- 6261 Jun, [facility] [address] [id number] [place] [address]- 9442 Jun, [facility] [address] [id number] [place] [address]- 3660 Jun, [facility] [address] [id number] [place] [address]- 7087 Jun, [facility] [address] [id number] [place] [address]- 5199 Jun, [facility] [address] [id number] [place] [address]- 6263 May, [facility] [address] [id number] [place] [address]- 2567 May, [facility] [address] [id number] [place] [address]- 9410 26 Apr, 2012 [facility] [address] [id number] [place] [address] 2546 Apr, [facility] [address] [id number] [place] [address] 2546 18 Apr, 2012 [facility] [address] [id number] [place] [address]- 6786 18 Apr, 2012 [facility] [address] [id number] [place] [address]- 0556 12 Apr, 2012 [facility] [address] [id number] [place] [address]- 8825 08 Apr, 2012 [facility] [address] [id number] [place] [address]- 0763 07 Apr, 2012 [facility] [address] [id number] [place] [address]- 9247 07 Apr, 2012 [facility] [address] [id number] [place] [address]- 4937 06 Apr, 2012 [facility] [address] [id number] [place] [address]- 0041 06 Apr, 2012 [facility] [address] [id number] [place] [address]- 8170 Apr, [facility] [address] [id number] [place] [address] 2543 Mar, [facility] [address] [id number] [place] [address]- 2540 Mar, [facility] [place] [facility] [address] [id number] [place] [address]- 8217 Mar, [facility] [place] [facility] [address] [id number] [place] [address]- 2542 Mar, [facility] [place] [facility] [address] [id number] [place] [address]- 8641 Mar, [facility] [address] [id number] [place] [address]- 0730 15 Mar, 2012 [facility] [address] [id number] [place] [address]- 8998 Mar, [facility] [address] [id number] [place] [address]- 3144 15 Mar, 2012 [facility] [place] [facility] [address] [id number] [place] [address] Mar, [facility] [address] [id number] [place] [address] Mar, [facility] [address] [id number] [place] [address] Mar, [facility] [address] [id number] [place] [address] Mar, [facility] [address] [id number] [place] [address] Mar, [facility] [address] [id number] [place] [address] Feb, [facility] [address] [id number] [place] [address] Feb, [facility] [place] [facility] [address] [id number] [address] 18 Feb, 2012 [facility] [place] [facility] [address] [id number], [place] [address] 18 Feb, 2012 [facility] [place] [facility] [address] [id number] [place] [address] Feb, [facility] [place] [facility] [address] [id number] [place] [address] Feb, [facility] [place] [facility] [address] [id number], [place] [address] 10 Feb, 2012 [facility] [place] [facility] [address] [id number], [place] [address] Feb, [facility] [place] [facility] [address] [id number] [place] [address] Feb, [facility] [place] [facility] [address] [id number] [place] [address] Feb, [facility] [place] [facility] [address] [facility] [id number] [place] [address] Feb, [facility] [place] [facility] [address] [id number] [place] [address] Feb, [facility] [place] [facility] [address] [id number] [place] [address] Feb, [facility] [place] [facility] [address] [facility] [id number] [place] [address] Feb, [facility] [place] [facility] [address] [place] [place] [id number] [address] Feb, [facility] [place] [facility] [address] [facility] [id number] [place] [address] Jan, [facility] [place] [facility] [address] [facility] [id number] [place] [address] Jan, [facility] [place] [facility] [address] [facility] [id number] [place] [address] Jan, [facility] [place] [facility] [address] [facility] [id number], [place] [address] Jan, [facility] [place] [facility] [address] [facility] [id number], [place] [address] Dec, [facility] [place] [facility] [address] [id number] [place] [address] Dec, [facility] [place] [facility] [address] [facility] [id number] [place] [address] Dec, [facility] [place] [facility] [address] [facility] [id number], [place] [address] Dec, [facility] [place] [facility] [address] [id number] [place] [address] 25 Dec, 2011 [facility] [place] [facility] [address] [id number] [place] [address] 25 Dec, 2011 [facility] [place] [facility] [address] [id number] [place] [address] 1346 16 Dec, 2011 [facility] [place] [facility] [address] [id number] [place] [address]226 16 Dec, 2011 [facility] [place] [facility] [address] [id number] [place] [address] 07 Dec, 2011 [facility] [place] [facility] [address] [id number] [place] [address] 04 Dec, 2011 [facility] [place] [facility] [address] [id number] [place] [address] 03 Dec, 2011 [facility] [place] [facility] [address] [id number] [place] [address] 3432 25 Sep, 2011 [facility] [place] [facility] [address] [id number] [place] [address] 24 Sep, 2011 [facility] [place] [facility] [address] [id number] [place] [address] 20 Sep, 2011 [facility] [place] [facility] [address] [id number] [place] [address] 19 Sep, 2011 [facility] [place] [facility] [address] [id number] [place] [address]46 17 Sep, 2011 [facility] [place] [facility] [address] [id number] [place] [address] 2546 16 Sep, 2011 [facility] [place] [facility] [address] [id number] [place] [address] 2546 14 Sep, 2011 [facility] [place] [facility] [address] [id number] [place] [address]46 13 Sep, 2011 [facility] [place] [facility] [address] [id number] [place] [address]- [address] 12 Sep, 2012 [facility] [place] [facility] [address] [id number] [place] [address]- [address] 07 Sep, 2011 [facility] [place] [facility] [address] [id number] [place] [address] 39[address] 06 Nov, 2011 [facility] [place] [facility] [address] [id number] [place] [address]37 06 Nov, 2011 [facility] [place] [facility] [address] [id number] [place] [address] 05 Nov, 2011 [facility] [place] [facility] [address] [id number] [place] [address] Oct, [facility] [place] [facility] [address] [id number] [place] [address] Oct, [facility] [place] [facility] [address] [id number] [place] [address] 95[address] Oct, [facility] [place] [facility] [address] [id number] [place] [address] Oct, [facility] [place] [facility] [address] [id number] [place] [address] Oct, [facility] [place] [facility] [address] [id number] [place] [address] 6298 Oct, [facility] [place] [facility] [address] [id number] [place] [address] Oct, [facility] [place] [facility] [address] [id number] [place] [address] 16 Oct, 2011 [facility] [place] [facility] [address] [id number] [place] [address] 6914 15 Oct, 2011 [facility] [place] [facility] [address] [id number] [place] [address] 6753 13 Oct, 2011 [facility] [place] [facility] [address] [id number] [place] [address]573 08 Oct, 2011 [facility] [place] [facility] [address] [id number] [place] [address] 235[address] Sep, [facility] [address] [id number] [place] [address] Sep, [facility] [place] [facility] [address] [id number] [place] [address]- [address]196 Sep, [facility] [place] [facility] [address] [id number] [place] [address]- [address] Sep, [facility] [place] [facility] [address] [id number] [place] [address]- 09[address] Sep, [facility] [place] [facility] [address] [id number] [place] [address] Sep, [facility] [place] [facility] [address] [id number] [place] [address] Aug, [facility] [address] [id number] [place] [address] July, [facility] [place] [facility] [address] [id number] [place] [address] July, [facility] [place] [facility] [address] [id number] [place] [address] Jun, [facility] [place] [facility] [address] [id number] [place] [address] Jun, [facility] [place] [facility] [address] [id number] [place] [address] Jun, [facility] [place] [facility] [address] [id number] [place] [address] Jun, [facility] [place] [facility] [address] [id number] [place] [address] Jun, [facility] [place] [facility] [address] [id number] [place] [address] Jun, [facility] [place] [facility] [address] [id number] [place] [address] Jun, [facility] [place] [facility] [address] [id number] [place] [address] 08 Jun, 2011 [facility] [place] [facility] [address] [id number] [place] [address] Jun, [facility] [place] [facility] [address] [id number] [place] [address] Jun, [facility] [place] [facility] [address] [id number] [place] [address] Jun, [facility] [place] [facility] [address] [id number] [place] [address] 19 May, 2011 [facility] [place] [facility] [address] [id number] [place] [address] 16 May, 2011 [facility] [place] [facility] [address] [id number] [place] [address] 14 May, 2011 [facility] [place] [facility] [address] [id number] [place] [address] 06 May, 2011 [facility] [place] [facility] [address] [id number] [place] [address] Apr, [facility] [place] [facility] [address] [id number] [place] [address] 28 Apr, 2011 [facility] [place] [facility] [address] [id number] [place] [address] Apr, [facility] [place] [facility] [address] [id number] [place] [address] Apr, [facility] [place] [facility] [address] [id number] [place] [address] Apr, [facility] [place] [facility] [address] [id number] [place] [address] Apr, [facility] [place] [facility] [address] [id number] [place] [address] Apr, [facility] [place] [facility] [address] [id number] [place] [address] Apr, [facility] [address] [id number] [place] [address] Mar, [facility] [place] [facility] [address] [id number] [place] [address] Mar, [facility] [address] [id number] [place] [address] Mar, [facility] [place] [facility] [address] [id number] [place] [address] Mar, [facility] [address] [id number] [place] [address] Mar, [facility] [address] [id number] [place] [address] Mar, [facility] [address] [id number] [place] [address] Mar, [facility] [address] [id number] [place] [address] Mar, [facility] [address] [id number] [place] [address] Mar, [facility] [address] [id number] [place] [address] Mar, [facility] [address] [id number] [place] [address] Mar, [facility] [place] [facility] [address] [id number] [place] [address] Mar, [facility] [place] [facility] [address] [id number] [place] [address] Mar, [facility] [place] [facility] [address] [id number] [place] [address] Mar, [facility] [place] [facility] [address] [id number] [place] [address] Mar, [facility] [place] [facility] [address] [id number] [place] [address] Mar, [facility] [place] [facility] [address] [id number] [place] [address] Feb, [facility] [place] [facility] [address] [id number] [place] [address] Feb, [facility] [place] [facility] [address] [id number] [place] [address] Feb, [facility] [place] [facility] [address] [id number] [place] [address] Jan, [facility] [place] [facility] [address] [id number] [place] [address] Jan, [facility] [place] [facility] [address] [id number] [place] [address] Jan, [facility] [place] [facility] [address] [id number] [place] [address] Dec, [facility] [place] [facility] [address] [id number] [place] [address] Dec, [facility] [place] [facility] [address] [id number] [place] [address] Nov, [facility] [place] [facility] [address] [id number] [place] [address] Oct, [facility] [place] [facility] [address] [id number] [place] [address] Oct, [facility] [place] [facility] [address] [id number] [place] [address] Oct, [facility] [place] [facility] [address] [id number] [place] [address] Sep, [facility] [place] [facility] [address] [id number] [place] [address] Apr, [facility] [place] [facility] [address] [id number] [place] [address] Feb, [facility] [address] [facility] [id number] [place] [address] Jan, IMMUNIZATIONS No Known Immunizations SOCIAL HISTORY Never Assessed REASON FOR VISIT Tone in PLAN OF CARE VITAL SIGNS MEDICATIONS Unknown [...] 2/2 [place] OD, pneumonia MRSA, [facility], Hypokalemia-- [facility] 12/20/2015 Hospitalization History COPD exacerbation, Asthma-[facility] 09/21/16 Hospitalization History COPD-[facility] 12/30/2016 Hospitalization History [facility] [place] [facility]-last around 2006 or so. Hospitalization History for COPD x2 Mar 2017 Hospitalization History Upper GI bleed at apr 2017
--- OUTSIDE RECORDS SUMMARY | 2017-08-04 18:12 | XMS REPORT ---
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 Active Problem Thrush B37.0 Active 15252949 Problem TMJ (sprain of temporomandibular joint) S03.4XXA Active 96222314 Problem Tobacco abuse Z72.0 Active 93144027 Problem Non morbid obesity due to excess calories E66.09 Active 800193073 Problem Migraine G43.909 Active 63354122 Problem History of MRSA infection Z86.14 Active 738262688 Problem Knee pain, left M25.562 Active 47446099 Problem Obesity, unspecified obesity severity, unspecified obesity type E66.9 Active 962635674 Problem Migraine without aura and without status migrainosus, not intractable G43.009 Active 198375031 Problem Other emphysema J43.8 Active 06119952 Problem Chronic obstructive pulmonary disease with acute exacerbation J44.1 Active 071844850 Problem Intractable cyclical vomiting with nausea G43.A1 Active 78590874 Problem Chronic constipation K59.09 Active 116726531 Problem Acute bronchitis with COPD J44.0 Active [id number] Problem Encounter for tobacco use cessation counseling Z71.6 Active 294210877 Problem Methamphetamine use disorder, moderate, 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 Active 21043088 Problem Chronic bronchitis, unspecified chronic bronchitis type J42 Active 90375370 Problem Viral illness B34.9 Active 18668250 Problem Diabetes E11.9 Active 296409208 Problem Memory loss R41.3 Active 18339926 Problem Left knee pain M25.562 Active 36466465 Problem Dry mouth R68.2 Active 81365070 Problem Yeast vaginitis B37.3 Active 23470254 Problem Generalized anxiety disorder F41.1 Active 16858189 Problem Bipolar disorder with depression F31.30 Active 06274459 Problem Bipolar disorder, unspecified F31.9 Active 51695788 Problem Bipolar disorder, current episode depressed, severe, without psychotic features F31.4 Active 71851312 ALLERGIES No Information ENCOUNTERS Encounter Location Date Diagnosis [facility] [address] [address] July, Diabetes E11.9 and Chronic obstructive pulmonary disease with acute exacerbation J44.1 [place] [address] [address] Jun, Chronic obstructive pulmonary disease with acute exacerbation J44.1 ; Diabetes E11.9 and Tobacco abuse Z72.0 [place] [address] [address] Jun, [facility] [address] [address] Jun, [facility] [address] [address] 78[address] May, [facility] [id number] [place] [address] 90826- 2835 May, [facility] [id number] [place] [address]57 -5012 17 May, 2017 [facility] [id number] [place] [address] 82202- 1910 16 May, 2017 [facility] [address] [address]- [address]95 15 May, 2017 [facility] [address] [id number] [place] [address] 27266- 5216 14 May, 2017 Diarrhea, unspecified type R19.7 and Intractable cyclical vomiting with nausea G43.A1 [facility] [id number] [place] [address] 81517- 4104 12 May, 2017 [facility] [address] 37[address]- [address] 05 May, 2017 [facility] [address] [address]- [address]36 28 Apr, 2017 COPD exacerbation J44.1 ; Esophageal candidiasis B37.81 ; Other acute gastritis with hemorrhage K29.01 and Acute posthemorrhagic anemia D62 [facility] [address] [address]- [address] Apr, Viral illness B34.9 and COPD exacerbation J44.1 [facility] [address] [address] Apr, Shortness of breath R06.02 and Pneumonia of both lower lobes due to infectious organism J18.9 [facility] [address] [address] Mar, COPD with acute exacerbation J44.1 [place] [address] 6[address]- 6352 Mar, Chronic obstructive pulmonary disease with acute exacerbation J44.1 and Diabetes E11.9 [place] [address] 44082- 1238 Mar, [place] [address] [address]37- [address] Mar, [facility] [id number] [place] [address] 26515 -4043 Mar, COPD exacerbation J44.1 [place] [address] 30227- 6073 Mar, [place] [address] 7[address]- 3602 Mar, Migraine G43.909 ; Hypokalemia E87.6 and Type 2 diabetes mellitus without complications E11.9 [facility] [address] [address] Feb, [facility] [id number] [place] [address] 63582- 8381 Feb, 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 [address] [place] [address] 43742- 1974 30 Jan, 2017 Major depressive disorder, recurrent, moderate F33.1 [place] [id number] [place] [address] 08601- 7457 16 Jan, 2017 [facility] [address] [id number] [place] [address] 15872- 6836 Jan, 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 [address] [address] Jan, [facility] [address] [place] [address] 28686- 1087 Jan, Chronic obstructive pulmonary disease with acute exacerbation J44.[address] [facility] [address] [place] [address] 45802- 8278 06 Jan, 2017 [facility] [address] [place] [address] 30884- 6754 Jan, [facility] [address] [place] [address] 38323- 7817 Dec, Acute respiratory failure with hypoxia J96.01 ; Chronic bronchitis, unspecified chronic bronchitis type J42 and Tobacco use Z72.0 [facility] [address] [id number] [place] [address] 37912- 7184 Dec, [facility] [id number] [place] [id number] Nov, Dental caries K02.9 and Dental examination Z01.20 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 [id number] [place] [address] 26120- 6764 Oct, [facility] [id number] [place] [address] 33238- 5024 Oct, Diabetes E11.[address] [facility] [id number] [place] [address] 85457- 9104 Oct, [facility] [id number] [place] [address] 47225- 5672 Oct, [facility] [address] [place] [address] 56904- 2296 Oct, [facility] [id number] [place] [address] 18960- 6079 Sep, Major depressive disorder, recurrent, moderate F33.1 ; Anxiety disorder, unspecified F41.9 and Bipolar disorder, unspecified F31.9 [facility] [id number] [place] [address] 28223- 3461 Sep, Acute exacerbation of chronic obstructive pulmonary disease (COPD) J44.[address] [facility] [address] [place] [address] 61813- 8670 Sep, [facility] [place] [id number] [place] [id number] Sep, [facility] [address] [id number] [place] [address] 78552- 5089 Sep, Acute exacerbation of chronic obstructive pulmonary disease (COPD) J44.1 [facility] [address] [place] [address] 68949 -3752 Sep, Acute exacerbation of chronic obstructive pulmonary disease (COPD) J44.1 [facility] [id number] [place] [address] 55670- 9596 Aug, 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 [address] [place] [address] 24462- 9411 Aug, Wheezing R06.2 ; Non morbid obesity due to excess calories E66.09 ; Migraine without aura and without status migrainosus, not intractable G43.009 and Tobacco abuse Z72.0 [facility] [address] [place] [address] [id number] [phone] Aug, 2016 Encounter for dental examination Z01.20 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 [id number] [place] [address] 47169- 8483 July, [place] [address] [id number] [place] [address] 32637- 9160 July, 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 [address] [id number] [place] [address] 36743- 8936 Jun, [facility] [address] [place] [id number] [place] [address] 60281- 5283 Jun, Wheezing R06.2 [facility] [address] [id number] Jun, Dental caries K02.9 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 [address] [id number] [place] [address] 21637- 0890 Jun, RLQ abdominal pain R10.31 ; Diabetes E11.9 ; Obesity, unspecified obesity severity, unspecified obesity type E66.9 ; Wheezing R06.2 and Abnormal urinalysis R82.90 [place] [address] [id number] [place] [address] 39173- 1432 May, [place] [address] [place] [id number] [place] [address] 72401- 7882 May, Well woman exam Z01.419 ; Breast cancer screening Z12.39 ; Cervical cancer screening Z12.4 ; Urinary frequency R35.0 ; Edema, unspecified type R60.9 and Chronic constipation K59.09 [place] [address] [id number] [place] [address] 84688- 2415 May, Major depressive disorder, recurrent, moderate F33.1 ; Anxiety disorder, unspecified F41.9 and 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 [id number] [place] [address] 57523- 2038 May, [facility] [address] 57206- 5162 May, [facility] [id number] [place] [address] 41782- 2126 May, Chronic constipation K59.09 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 [place] [address] [place] [address] 28705- 3764 Apr, [place] [address] [id number] [place] [address] 18749- 0057 Mar, Major depressive disorder, recurrent, moderate F33.1 [place] [id number] [place] [address] 32960- 0571 Mar, Major depressive disorder, recurrent, moderate F33.1 ; Generalized anxiety disorder F41.1 and Bipolar I disorder, most recent episode depressed with anxious distress F31.30 [place] [id number] [place] [address] 01734- 8642 Mar, Diabetes E11.9 ; Non morbid obesity due to excess calories E66.09 ; Breast cancer screening Z12.39 and Encounter for immunization Z23 [place] [id number] [place] [address] 67264- 8946 Mar, Major depressive disorder, recurrent, moderate F33.1 ; Anxiety disorder, unspecified F41.9 and 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 [id number] [place] [address] 22676- 0868 Jan, Major depressive disorder, recurrent, moderate F33.1 ; Generalized anxiety disorder F41.1 and Bipolar disorder, current episode depressed, severe, without psychotic features F31.4 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 [id number] [place] [address] 80000- 7294 Jan, Bronchitis J40 [facility] [id number] [place] [address] 37972- 8543 Jan, [facility] [id number] [place] [address] 01171- 2868 Jan, [facility] [id number] [place] [address] 51743- 7758 Jan, Elbow injury, right, initial encounter S59.901A ; Multiple contusions T14.8 and Cervical strain, acute, initial encounter S16.1XXA [facility] [address] [place] [address] 22652- 4732 Dec, Major depressive disorder, recurrent, moderate F33.1 ; Generalized anxiety disorder F41.1 and Bipolar disorder with depression F31.30 [facility] [address] [place] [address] 94835- 7614 Dec, [facility] [id number] [place] [address] 64234- 8629 Dec, [facility] [id number] [place] [address] 53144- 7409 Dec, [facility] [id number] [place] [address] 76251- 0572 Dec, [facility] [address] [address]- 4379 Dec, Yeast infection B37.9 [place] [id number] [place] [address] 62437- 8027 Dec, Pneumonia of both lungs due to methicillin resistant Staphylococcus aureus (MRSA), unspecified part of lung J15.212 and Benzodiazepine overdose, accidental or unintentional, subsequent encounter T42.4X1D [place] [id number] [place] [address] 68427- 9718 Dec, [place] [id number] [place] [address] 54741- 5212 Dec, [place] [id number] [place] [address] 37710- 4878 Dec, Knee pain, left M25.562 and Edema, unspecified type R60.9 [place] [id number] [place] [address] 20574- 2642 Dec, 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 [id number] [place] [address] 14490- 3848 Nov, Migraine without aura and without status migrainosus, not intractable G43.009 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 [place] [id number] [place] [address] 03210- 2624 Oct, Chronic constipation K59.09 and Obesity, unspecified obesity severity, unspecified obesity type E66.9 [place] [id number] [place] [address] 96841- 2993 Oct, Obesity, unspecified obesity severity, unspecified obesity type E66.9 ; Chronic constipation K59.09 and Anxiety disorder, unspecified F41.9 [place] [id number] [place] [address] 91690- 0547 Oct, [place] [id number] [place] [address] 66918- 1332 Sep, Diabetes E11.9 ; Edema, unspecified type R60.9 ; Varicose vein of leg I83.90 and Obesity, unspecified obesity severity, unspecified obesity type E66.9 [place] [address] [place] [address] 00026- 5258 Sep, Edema, unspecified type R60.9 ; Diabetes E11.9 and Knee pain , left M25.562 [place] [address] [place] [address] 24782- 9560 Sep, [place] [id number] [place] [address] 35042- 8561 Sep, [place] [id number] [place] [address] 11600- 2403 Sep, Major depressive disorder, recurrent, moderate F33.1 ; Generalized anxiety disorder F41.1 and Bipolar disorder, unspecified F31.9 [facility] [address] [address]- 6366 30 Aug, 2015 Chondromalacia of left knee M94.262 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 [address] [place] [address] 11539- 8637 Aug, [facility] [id number] [place] [address] 22701- 2778 Aug, Osteoarthritis of left knee M17.9 [facility] [address] [place] [address] 96004- 9116 Aug, 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 [id number] [place] [address] 57471- [address]25 July, [facility] [id number] [place] [address]4280- 9549 July, Chronic constipation K59.09 [facility] [id number] [place] [address] 64764- [address]25 Jun, [facility] [id number] [place] [address] 18477- [address]058 Jun, [facility] [id number] [place] [address] 76289- 7412 14 Jun, 2015 Osteoarthritis of left knee M17.9 [facility] [id number] [address] Jun, [facility] [id number] [place] [address] 50188- 0549 Jun, Generalized anxiety disorder F41.1 ; Bipolar disorder, unspecified F31.9 and Major depressive disorder, recurrent, moderate F33.1 [place] [id number] [place] [address] 22168- 7187 Jun, Migraine G43.909 [place] [address] 27398- 0773 Jun, Left knee pain M25.562 ; Chronic constipation K59.09 ; Dry mouth R68.2 ; Yeast vaginitis B37.3 and Memory loss R41.3 [place] [address] 37786- 6487 Jun, [place] [address] 46182- 4379 May, [place] [address] 38811- 2570 May, [place] [address] 46661- 4699 May, [place] [address] 53368- 4838 May, [place] [address] [place] [id number] [place] [address] 50904- 3196 May, Acute bronchitis with COPD J44.0 ; Knee pain, left M25.562 and Encounter for tobacco use cessation counseling Z71.6 [place] [address] [place] [id number] [place] [address] 77107- 3613 May, [place] [address] 98328- 7825 Apr, Diabetes E11.9 ; TMJ (sprain of temporomandibular joint) S03.4XXA ; Tobacco abuse Z72.0 ; Migraine G43.909 and Anxiety F41.9 [place] [id number] [place] [address] 52138- 7278 Apr, Generalized anxiety disorder F41.1 and Bipolar disorder, unspecified F31.9 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 [id number] [place] [address] 21200- 2757 Apr, [facility] [id number] [place] [address] 97671- 6748 Mar, [facility] [id number] [place] [address] 40945- 5398 Feb, 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 [id number] [place] [address] 21157- 7848 Feb, [facility] [id number] [place] [address] 24132- 8784 Feb, Generalized anxiety disorder F41.1 and Bipolar disorder, unspecified F31.9 [facility] [id number] [place] [address] 21030- 5315 Jan, [facility] [id number] [place] [address] 98864- 6803 Jan, [facility] [id number] [place] [address] 09785- 0970 Jan, Bipolar disorder, unspecified F31.9 and Generalized anxiety disorder F41.1 [facility] [address] [id number] [place] [address] 94811- 3173 Dec, [facility] [id number] [place] [address] 84498- 1810 Dec, Bipolar disorder, unspecified F31.9 and Generalized anxiety disorder F41.1 [facility] [address] [id number] [place] [address] 89996- 5086 Dec, Generalized anxiety disorder F41.1 and Major depressive disorder, recurrent, moderate F33.1 [facility] [address] [place] [id number] [place] [address] 89813- 9035 Oct, Headache 784.0 ; Cough 786.2 ; Vomiting and diarrhea 787.[address] [facility] [address] 15457- 4018 Aug, [facility] [address] 04544- 5466 Aug, Headache 784.0 and Shortness of breath 786.05 [facility] [address] [place] [id number] [place] [address] 31758- 5772 Aug, [facility] [address] [place] [id number] [place] [address] 63444- 9079 Aug, Migraine 346.[address] [facility] [address] [place] [id number] [place] [address] 23302- 1042 Jun, [facility] [address] [place] [id number] [place] [address] 25111- 0451 Jun, [facility] [address] [id number] [place] [address] 02974- 4777 May, [facility] [address] [place] [id number] [place] [address] 99955- 9400 May, [facility] [address] [place] [id number] [place] [address] 65174- 4913 May, [facility] [address] [place] [id number] [place] [address] 42004- 2770 May, [facility] [address] [facility] [id number] [place] [address]- 6009 May, 2014 [facility] [place] [facility] [address] [id number] [place] [address]- 1163 May, [facility] [place] [facility] [address] [id number] [place] [address]- 4171 Apr, 2014 [facility] [place] [facility] [address] [id number] [place] [address]- 2095 Apr, 2014 [facility] [place] [facility] [address] [id number] [place] [address]- 4594 Apr, 2014 [facility] [place] [facility] [address] [id number] [place] [address]- 4102 Apr, 2014 [facility] [place] [facility] [address] [id number] [place] [address]- 2155 Apr, [facility] [place] [facility] [address] [id number] [place] [address]- 9109 Mar, [facility] [place] [facility] [address] [id number] [place] [address]- 0314 Mar, [facility] [place] [facility] [address] [id number] [place] [address]- 1049 Mar, [facility] [place] [facility] [address] [id number] [place] [address]- 2260 Mar, [facility] [place] [facility] [address] [id number] [place] [address]- 6009 Feb, [facility] [place] [facility] [address] [id number] [place] [address]- 1693 Feb, [facility] [place] [facility] [address] [id number] [place] [address]- 9384 Feb, [facility] [place] [facility] [address] [id number] [place] [address]- 0886 Feb, [facility] [place] [facility] [address] [id number], [place] [address]- 0797 Feb, [facility] [place] [facility] [address] [id number] [place] [address]- 1205 Feb, [facility] [place] [facility] [address] [id number] [place] 0678 Feb, [facility] [place] [facility] [address] [id number] [place] [address]- 6202 Feb, [facility] [place] [facility] [address] [id number] [place] [address]- 2805 Feb, [facility] [place] [facility] [address] [id number] [place] [address]- 3317 Feb, [facility] [place] [facility] [address] [id number] [place] [address]- 4555 Feb, [facility] [place] [facility] [address] [id number] [place] [address]- 5163 Feb, [facility] [place] [facility] [address] [id number] [place] [address]- 7145 Jan, [facility] [place] [facility] [address] [id number] [place] [address]- 4699 Jan, [facility] [place] [facility] [address] [id number] [place] [address]- 4369 Dec, [facility] [place] [facility] [address] [id number], [place] [address]- 5320 Dec, [facility] [place] [facility] [address] [id number], [place] [address]- 3735 Dec, [facility] [place] [facility] [address] [id number] [place] [address]- 4088 Dec, [facility] [place] [facility] [address] [id number], [place] [address]- 0690 Dec, [facility] [place] [facility] [address] [id number], [place] [address]- 8724 Dec, [facility] [place] [facility] [address] [id number] [place] [address]- 0457 Sep, 2013 [facility] [place] [facility] [address] [id number] [place] [address]- 7599 Sep, [facility] [place] [facility] [address] [id number] [place] [address]- 7956 Sep, [facility] [place] [facility] [address] [id number] [place] [address]- 1012 Sep, 2013 [facility] [place] [facility] [address] [id number] [place] [address]- 6440 Sep, 2013 [facility] [place] [facility] [address] [id number] [place] [address]- 5069 Sep, [facility] [place] [facility] [address] [id number] [place] [address]- 7762 Sep, [facility] [place] [facility] [address] [id number] [place] [address]- 5280 Sep, [facility] [place] [facility] [address] [id number] [place] [address]- 5141 Sep, [facility] [place] [facility] [address] [id number] [place] [address]- 1082 Sep, [facility] [place] [facility] [address] [id number] [place] [address]- 1767 Aug, [facility] [place] [facility] [address] [id number] [place] [address]- 2099 Aug, [facility] [place] [facility] [address] [id number] [place] [address]- 4349 Aug, [facility] [place] [facility] [address] [id number] [place] [address]- 2508 Aug, [facility] [place] [facility] [address] [id number] [place] [address]- 0415 Aug, [facility] [place] [facility] [address] [id number] [place] [address]- 3747 Aug, [facility] [place] [facility] [address] [id number] [place] [address]- 7035 Aug, [facility] [place] [facility] [address] [id number] [place] [address]- 8995 Aug, [facility] [place] [facility] [address] [id number] [place] [address]- 7348 Aug, [facility] [place] [facility] [address] [id number] [place] [address]- 4531 Aug, [facility] [place] [facility] [address] [id number] [place] [address]- 0413 Aug, [facility] [place] [facility] [address] [id number] [place] [address]- 4058 Aug, [facility] [place] [facility] [address] [id number] [place] [address]- 4719 Aug, [facility] [place] [facility] [address] [id number] [place] [address]- 4863 July, [facility] [place] [facility] [address] [id number] [place] [address]- 4054 July, [facility] [place] [facility] [address] [id number] [place] [address]- 1693 July, [facility] [place] [facility] [address] [id number] [place] [address]- 4638 July, [facility] [place] [facility] [address] [id number] [place] [address]- 2314 July, [facility] [place] [facility] [address] [id number] [place] [address]- 1040 July, [facility] [place] [facility] [address] [id number] [place] [address]- 2123 July, [facility] [place] [facility] [address] [id number] [place] [address]- 2464 Jun, [facility] [place] [facility] [address] [id number] [place] [address]- 7886 23 Jun, 2013 [facility] [place] [facility] [address] [id number] [place] [address]- 1388 18 Jun, 2013 [facility] [place] [facility] [address] [id number] [place] [address]- 9266 16 Jun, 2013 [facility] [place] [facility] [address] [id number] [place] [address]- 8180 16 Jun, 2013 [facility] [place] [facility] [address] [id number] [place] [address]- 5475 Jun, [facility] [place] [facility] [address] [id number] [place] [address]- 1943 Jun, [facility] [place] [facility] [address] [id number] [place] [address]- 1601 17 May, 2013 [facility] [place] [facility] [address] [id number] [place] [address]- 7065 17 May, 2013 [facility] [place] [facility] [address] [id number] [place] [address]- 2567 14 May, 2013 [facility] [place] [facility] [address] [id number] [place] [address]- 4379 14 May, 2013 [facility] [place] [facility] [address] [facility] [id number] [place] [address]- 5519 13 May, 2013 [facility] [place] [facility] [address] [id number] [place] [address]- 8003 13 May, 2013 [facility] [place] [facility] [address] [id number] [place] [address]- 4713 10 May, 2013 [facility] [place] [facility] [address] [id number] [place] [address]- 8019 10 May, 2013 [facility] [place] [facility] [address] [id number] [place] [address]- 5506 07 May, 2013 [facility] [place] [facility] [address] [id number] [place] [address]- 8466 26 Apr, 2013 [facility] [place] [facility] [address] [id number] [place] [address]- 2732 Apr, [facility] [place] [facility] [address] [id number] [place] [address]- 3366 Apr, [facility] [place] [facility] [address] [id number] [place] [address]- 7916 Apr, [facility] [place] [facility] [address] [id number] [place] [address]- 8896 Apr, [facility] [place] [facility] [address] [id number] [place] [address]- 2857 Apr, [facility] [place] [facility] [address] [id number] [place] [address]- 3686 Apr, [facility] [place] [facility] [address] [id number] [place] [address]- 6740 Apr, [facility] [place] [facility] [address] [id number] [place] [address]- 5574 Apr, [facility] [place] [facility] [address] [id number] [place] [address]- 1737 Apr, [facility] [place] [facility] [address] [facility] [id number] [place] [address]- 3216 Mar, [facility] [place] [facility] [address] [id number] [place] [address]- 8164 Mar, [facility] [place] [facility] [address] [id number], [place] [address]- 8446 Mar, [facility] [place] [facility] [address] [id number] [place] [address]- 3238 Mar, [facility] [place] [facility] [address] [id number] [place] [address]- 9752 Mar, [facility] [place] [facility] [address] [id number] [place] [address]- 4598 Mar, [facility] [place] [facility] [address] [id number], [place] [address]- 5756 Mar, [facility] [address] [id number] [place] [address]- 8324 Mar, [facility] [place] [facility] [address] [id number] [place] [address]- 1469 Feb, [facility] [place] [facility] [address] [id number] [place] [address]- 8256 Feb, [facility] [place] [facility] [address] [id number] [place] [address]- 1707 Jan, [facility] [place] [facility] [address] [id number] [place] [address]- 3220 Jan, [facility] [place] [facility] [address] [id number] [place] [address]- 6179 Jan, [facility] [address] [id number], [place] [address]- 0121 Jan, [facility] [place] [facility] [address] [id number], [place] [address]- 6590 Jan, [facility] [place] [facility] [address] [id number] [place] [address]- 7628 Jan, [facility] [place] [facility] [address] [facility] [id number] [place] [address]- 2247 Jan, [facility] [place] [facility] [address] [id number], [place] [address]- 0684 05 Jan, 2013 [facility] [place] [facility] [address] [id number], [place] [address]- 9541 Dec, [facility] [place] [facility] [address] [id number], [place] [address]- 8730 10 Dec, 2012 [facility] [place] [facility] [address] [facility] [id number], [place] [address]- 5547 10 Dec, 2012 [facility] [place] [facility] [address] [id number], [place] [address]- 1055 20 Nov, 2012 [facility] [place] [facility] [address] [id number] [place] [address]- 8925 13 Nov, 2012 [facility] [place] [facility] [address] [id number] [place] [address]- 3626 12 Nov, 2012 [facility] [place] [facility] [address] [id number] [place] [address] 2546 09 Nov, 2012 [facility] [place] [facility] [address] [id number] [place] [address] 2546 06 Nov, 2012 [facility] [place] [facility] [address] [id number] [place] [address] 2544 06 Nov, 2012 [facility] [place] [facility] [address] [id number] [place] [address]- 8134 Oct, [facility] [place] [facility] [address] [id number] [place] [address]- 6450 Oct, [facility] [place] [facility] [address] [id number] [place] [address]- 4122 Sep, [facility] [place] [facility] [address] [id number] [place] [address]- 2848 Sep, [facility] [place] [facility] [address] [id number] [place] [address]- 1549 Sep, [facility] [place] [facility] [address] [id number] [place] [address]- 3619 Sep, [facility] [place] [facility] [address] [id number] [place] [address]- 7988 Sep, [facility] [place] [facility] [address] [id number] [place] [address]- 8678 Sep, [facility] [place] [facility] [address] [id number] [place] [address]- 2546 Sep, [facility] [place] [facility] [address] [id number] [place] [address]- 2542 14 Aug, 2012 [facility] [place] [facility] [address] [id number] [place] [address]- 2324 14 Aug, 2012 [facility] [address] [id number] [place] [address]- 7636 13 Aug, 2012 [facility] [place] [facility] [address] [id number] [place] [address]- 9143 12 Aug, 2012 [facility] [address] [id number] [place] [address]- 7164 Aug, [facility] [place] [facility] [address] [id number] [place] [address]- 0546 Aug, [facility] [address] [id number] [place] [address]- 9248 July, [facility] [address] [id number] [place] [address]- 6114 July, [facility] [address] [id number] [place] [address]- 4987 July, [facility] [place] [facility] [address] [id number] [place] [address]- 5373 July, [facility] [address] [id number] [place] [address]- 1818 July, [facility] [place] [facility] [address] [id number] [place] [address]- 2615 July, [facility] [place] [facility] [address] [id number] [place] [address]- 9207 Jun, [facility] [place] [facility] [address] [id number], [place] [address]- 3981 Jun, [facility] [place] [facility] [address] [id number] [place] [address]- 2676 15 Jun, 2012 [facility] [place] [facility] [address] [id number] [place] [address]- 8484 Jun, [facility] [place] [facility] [address] [id number] [place] [address]- 2278 Jun, [facility] [place] [facility] [address] [id number] [place] [address]- 9408 Jun, [facility] [place] [facility] [address] [id number] [place] [address]- 4141 Jun, [facility] [place] [facility] [address] [facility] [id number] [place] [address]- 0359 May, [facility] [place] [facility] [address] [facility] [id number] [place] [address]- 6124 May, [facility] [place] [facility] [address] [id number] [place] [address]- 2903 26 Apr, 2012 [facility] [place] [facility] [address] [facility] [id number] [place] [address]- 9203 Apr, 2012 [facility] [place] [facility] [address] [facility] [id number] [place] [address]- 6194 18 Apr, 2012 [facility] [place] [facility] [address] [address] [id number] [place] [address]- 9613 Apr, [facility] [place] [facility] [address] [facility] [id number] [place] [address]- 1338 12 Apr, 2012 [facility] [place] [facility] [address] [facility] [id number] [place] [address]- 5104 08 Apr, 2012 [facility] [place] [facility] [address] [facility] [id number] [place] [address] Apr, [facility] [place] [facility] [address] [facility] [id number] [place] [address] 07 Apr, 2012 [facility] [place] [facility] [address] [facility] [id number] [place] [address] 06 Apr, 2012 [facility] [place] [facility] [address] [facility] [id number] [place] [address] Apr, [facility] [place] [facility] [address] [facility] [id number] [place] [address] 03 Apr, 2012 [facility] [place] [facility] [address] [facility] [id number] [place] [address] Mar, [facility] [address] [id number] [place] [address] Mar, [facility] [address] [id number] [place] [address] Mar, [facility] [address] [id number] [place] [address] Mar, [facility] [address] [id number] [place] [address] Mar, [facility] [address] [id number] [place] [address] Mar, [facility] [address] [id number] [place] [address] 94[address] Mar, [facility] [address] [id number] [place] [address] Mar, [facility] [address] [id number] [place] [address] 79[address] Mar, [facility] [address] [id number] [place] [address] Mar, [facility] [address] [id number] [place] [address] Mar, [facility] [address] [id number] [place] [address] Mar, [facility] [place] [facility] [address] [id number] [place] [address] Mar, [facility] [place] [facility] [address] [id number] [place] [address] Feb, [facility] [place] [facility] [address] [id number] [place] [address]- [address] Feb, [facility] [place] [facility] [address] [id number] [place] [address]- [address] Feb, [facility] [address] [id number] [place] [address] 18 Feb, 2012 [facility] [address] [id number] [place] [address] Feb, [facility] [place] [facility] [address] [id number] [place] [address]- [address]896 Feb, [facility] [address] [id number] [place] [address] 47[address] Feb, [facility] [place] [facility] [address] [id number] [place] [address] 9[address] Feb, [facility] [address] [id number] [place] [address] 45[address] Feb, [facility] [address] [id number] [place] [address] Feb, [facility] [address] [id number] [place] [address] 65[address] Feb, [facility] [address] [id number] [place] [address] Feb, [facility] [place] [facility] [address] [id number] [place] [address] Feb, [facility] [address] [id number] [place] [address] Feb, [facility] [place] [facility] [address] [id number] [place] [address] Feb, [facility] [place] [facility] [address] [id number] [place] [address] Jan, [facility] [place] [facility] [address] [id number] [place] [address] Jan, [facility] [place] [facility] [address] [id number] [place] [address] 0516 Jan, [facility] [place] [facility] [address] [id number] [place] [address] 5[address] Jan, [facility] [place] [facility] [address] [id number] [place] [address] 9[address] Dec, [facility] [place] [facility] [address] [id number] [place] [address] Dec, [facility] [place] [facility] [address] [id number] [place] [address] 8128 Dec, [facility] [place] [facility] [address] [id number] [place] [address]163 Dec, [facility] [place] [facility] [address] [id number] [place] [address] 7363 Dec, [facility] [place] [facility] [address] [id number] [place] [address]- [address] Dec, [facility] [place] [facility] [address] [id number] [place] [address] 37[address] Dec, [facility] [place] [facility] [address] [id number], [place] [address] Dec, [facility] [place] [facility] [address] [id number] [place] [address]- [address] Dec, [facility] [place] [facility] [address] [id number], [place] [address] Dec, [facility] [place] [facility] [address] [id number], [place] [address] Dec, [facility] [place] [facility] [address] [id number], [place] [address]- 1474 Nov, [facility] [place] [facility] [address] [id number], [place] [address]- [address] 24 Sep2011 [facility] [place] [facility] [address] [id number], [place] [address]- 8213 20 Sep2011 [facility] [place] [facility] [address] [id number] [address] 19 Sep2011 [facility] [place] [facility] [address] [id number], [place] [address] 17 Sep, 2011 [facility] [place] [facility] [address] [id number] [place] [address] 2546 16 Sep, 2011 [facility] [place] [facility] [address] [id number] [place] [address] 2546 14 Sep, 2011 [facility] [place] [facility] [address] [id number] [place] [address] 2546 13 Sep, 2011 [facility] [place] [facility] [address] [id number] [place] [address]- [address] 12 Sep, 2011 [facility] [place] [facility] [address] [id number] [place] [address] 07 Sep, 2011 [facility] [place] [facility] [address] [id number] [place] [address]- 9206 06 Sep, 2011 [facility] [place] [facility] [address] [id number] [place] [address]- 5656 06 Sep, 2011 [facility] [place] [facility] [address] [id number] [place] [address]- [address]113 05 Nov, 2011 [facility] [place] [facility] [address] [id number] [place] [address]- 6415 29 Oct, 2011 [facility] [place] [facility] [address] [id number] [place] [address]- 5661 29 Oct, 2011 [facility] [place] [facility] [address] [id number] [place] [id number] 28 Oct, 2011 [facility] [place] [facility] [address] [id number] [place] [address] 28 Oct, 2011 [facility] [place] [facility] [address] [id number] [place] [address] 23 Oct, 2011 [facility] [place] [facility] [address] [id number] [place] [address] 72[address] 21 Oct, 2011 [facility] [place] [facility] [address] [id number] [place] [address] 20 Oct, 2011 [facility] [place] [facility] [address] [id number] [place] [address] 8[address] 16 Oct, 2011 [facility] [place] [facility] [address] [id number] [place] [address] Oct, [facility] [place] [facility] [address] [id number] [place] [address] 6[address] Oct, [facility] [place] [facility] [address] [id number] [place] [address] Oct, [facility] [place] [facility] [address] [id number] [place] [address] Sep, [facility] [place] [facility] [address] [id number] [place] [address] Sep, [facility] [place] [facility] [address] [id number] [place] [address] Sep, [facility] [place] [facility] [address] [id number] [place] [address] Sep, [facility] [place] [facility] [address] [id number] [place] [address] 5568 Sep, [facility] [place] [facility] [address] [id number] [place] [address] 28[address] Sep, [facility] [place] [facility] [address] [id number] [place] [address] Aug, [facility] [place] [facility] [address] [id number] [place] [address] July, [facility] [place] [facility] [address] [id number] [place] [address] 39[address] July, [facility] [place] [facility] [address] [id number] [place] [address] Jun, [facility] [place] [facility] [address] [id number] [place] [address] 9296 Jun, [facility] [place] [facility] [address] [id number] [place] [address]- 5[address] Jun, [facility] [place] [facility] [address] [id number] [place] [address]- [address] Jun, [facility] [place] [facility] [address] [id number] [place] [address]- 8643 10 Jun, 2011 [facility] [place] [facility] [address] [id number] [place] [address]- 2438 Jun, [facility] [place] [facility] [address] [id number] [place] [address] 15[address] Jun, [facility] [place] [facility] [address] [id number] [place] [address] 9551 Jun, [facility] [place] [facility] [address] [id number] [place] [address]- 6204 Jun, [facility] [place] [facility] [address] [id number] [place] [address]- 3[address] Jun, [facility] [place] [facility] [address] [id number] [place] [address]- 75[address] Jun, [facility] [place] [facility] [address] [id number] [place] [address] 6396 May, [facility] [place] [facility] [address] [id number] [place] [address] 6618 16 May, 2011 [facility] [place] [facility] [address] [id number] [place] [address]234 14 May, 2011 [facility] [place] [facility] [address] [id number] [place] [address]- 9212 06 May, 2011 [facility] [place] [facility] [address] [id number] [place] [address] Apr, [facility] [place] [facility] [address] [id number] [place] [address] 7876 Apr, [facility] [place] [facility] [address] [facility] [id number] [place] [address] 6369 Apr, [facility] [place] [facility] [address] [id number] [place] [address] 9714 Apr, [facility] [address] [id number] [place] [address] 4226 Apr, [facility] [place] [facility] [address] [id number] [place] [address] 5596 Apr, [facility] [address] [id number] [place] [address] 8716 Apr, [facility] [address] [id number] [place] [address]- 5035 Apr, [facility] [address] [id number] [place] [address] 1066 Mar, [facility] [address] [id number] [place] [address]248 Mar, [facility] [address] [id number] [place] [address] 2656 Mar, [facility] [address] [id number] [place] [address] 3838 Mar, [facility] [address] [id number] [place] [address] 8991 Mar, [facility] [address] [id number] [place] [address] 34[address] Mar, [facility] [address] [id number] [place] [address] 8253 Mar, [facility] [address] [id number] [place] [address]- 8254 Mar, [facility] [place] [facility] [address] [id number] [place] [address] 3733 Mar, [facility] [place] [facility] [address] [id number] [place] [address]003 Mar, [facility] [place] [facility] [address] [id number] [place] [address] 38[address] Mar, [facility] [address] [id number] [place] [address] 3733 Mar, [facility] [place] [facility] [address] [id number] [place] [address]- 3778 Mar, [facility] [place] [facility] [address] [id number] [place] [address] Mar, [facility] [place] [facility] [address] [id number] [place] [address]- 8567 Mar, [facility] [place] [facility] [address] [id number] [place] [address]- 1265 Mar, [facility] [place] [facility] [address] [id number] [place] [address] 5639 Feb, [facility] [place] [facility] [address] [id number] [place] [address] 4703 Feb, [facility] [place] [facility] [address] [id number], [place] [address] Feb, [facility] [place] [facility] [address] [id number] [place] [address]- 7098 Jan, [facility] [place] [facility] [address] [id number] [place] [address] 0573 Jan, [facility] [place] [facility] [address] [id number], [place] [address] 269[address] Jan, [facility] [place] [facility] [address] [id number], [place] [address] Dec, [facility] [place] [facility] [address] [id number] [place] [address]- 2198 Dec, [facility] [place] [facility] [address] [id number], [place] [address] Nov, [facility] [place] [facility] [address] [id number], [place] [address] 9183 Oct, [facility] [place] [facility] [address] [facility] [id number] [place] [address] Oct, [facility] [address] [facility] [id number] [address] Oct, [facility] [address] [facility] [id number], [place] [address] Sep, [facility] [address] [facility] [id number], [place] [address]326 Apr, [facility] [address] [facility] [id number], [place] [address] Feb, [facility] [address] [facility] [id number], [place] [address]807 Jan, IMMUNIZATIONS No Known Immunizations SOCIAL HISTORY Never Assessed [facility] VITAL SIGNS MEDICATIONS Unknown [...] 2/2 Benzos OD, pneumonia MRSA, [facility]RA, Hypokalemia-- [facility] 12/20/2015 Hospitalization History COPD exacerbation, Asthma-[facility] 09/21/16 Hospitalization History COPD-[facility] 12/30/2016 [facility]. Hospitalization History for COPD x2 Mar 2017 Hospitalization History Upper GI bleed at apr 2017 Hospitalization History [facility]- COPD Exacerbation, diarrhea 05/23/2017 Hospitalization History COPD exacerbation-[facility] 06/13/17
--- OUTSIDE RECORDS SUMMARY | 2017-08-04 18:16 | XMS REPORT ---
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 Active Problem Thrush B37.0 Active 13854402 Problem TMJ (sprain of temporomandibular joint) S03.4XXA Active 69819714 Problem Anxiety F41.9 Active 69227769 Problem Tobacco abuse Z72.0 Active 23711392 Problem Non morbid obesity due to excess calories E66.09 Active 015820294 Problem Migraine G43.909 Active 21656349 Problem History of MRSA infection Z86.14 Active 790269748 Problem Knee pain, left M25.562 Active 83721569 Problem Obesity, unspecified obesity severity, unspecified obesity type E66.9 Active 473283053 Problem Migraine without aura and without status migrainosus, not intractable G43.009 Active 121090858 Problem Other emphysema J43.8 Active 78635677 Problem Intractable cyclical vomiting with nausea G43.A1 Active 27361751 Problem Viral illness B34.9 Active 93619687 Problem Dry mouth R68.2 Active 41955303 Problem Encounter for tobacco use cessation counseling Z71.6 Active 975123762 Problem Acute bronchitis with COPD J44.0 Active 771010498620288 Problem Methamphetamine use disorder, moderate, 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 Active 17797009 Problem Chronic bronchitis, unspecified chronic bronchitis type J42 Active 60267343 Problem COPD exacerbation J44.1 Active 662783557 Problem Diabetes E11.9 Active 780887090 Problem Memory loss R41.3 Active 01670252 Problem Left knee pain M25.562 Active 98303536 Problem Chronic constipation K59.09 Active 101935574 Problem Yeast vaginitis B37.3 Active 32411330 Problem Generalized anxiety disorder F41.1 Active 02208266 Problem Bipolar disorder with depression F31.30 Active 81791043 Problem Bipolar disorder, unspecified F31.9 Active 65902275 Problem Bipolar disorder, current episode depressed, severe, without psychotic features F31.4 Active 27392767 ALLERGIES No Information ENCOUNTERS Encounter Location Date Diagnosis [facility] [address] [address] Jun, [facility] [address] [address] May, [facility] [address] [address] May, [facility] [address] [address]20 17 May, 2017 [facility] [id number] [place] [address] 99585- 2203 16 May, 2017 [facility] [address] [address]- [address] 15 May, 2017 [facility] [id number] [place] [address] 54947- 1579 14 May, 2017 Diarrhea, unspecified type R19.7 and Intractable cyclical vomiting with nausea G43.A1 [facility] [id number] [place] [address] 66772- 4637 12 May, 2017 [facility] [address] 53[address]- 6[address] 05 May, 2017 [facility] [id number] [place] [address] 07707- 5188 28 Apr, 2017 COPD exacerbation J44.1 ; Esophageal candidiasis B37.81 ; Other acute gastritis with hemorrhage K29.01 and Acute posthemorrhagic anemia D62 [facility] [address] [address] Apr, Viral illness B34.9 and COPD exacerbation J44.1 [facility] [id number] [place] [address]30 -1598 Apr, Shortness of breath R06.02 and Pneumonia of both lower lobes due to infectious organism J18.9 [facility] [id number] [place] [address] 08715 -0092 Mar, COPD with acute exacerbation J44.1 [facility] [id number] [place] [address] 52076- 1313 Mar, Chronic obstructive pulmonary disease with acute exacerbation J44.1 and Diabetes E11.9 [facility] [id number] [place] [address] 55294- 1230 Mar, [facility] [id number] [place] [address] 61257- 4227 Mar, [facility] [id number] [place] [address] 79868 -0618 Mar, COPD exacerbation J44.1 [place] [facility] [id number] [place] [address] 07632- 6487 Mar, [facility] [id number] [place] [address] 02986- 9818 Mar, Migraine G43.909 ; Hypokalemia E87.6 and Type 2 diabetes mellitus without complications E11.9 [facility] [address] [place] [address] 64541- 6994 Feb, [facility] [id number] [place] [address] 85691- 2199 Feb, [place] [facility] [id number] [place] [address] 89054- 2771 Feb, Methamphetamine use disorder, moderate, 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 ; Major depressive disorder, recurrent, moderate F33.1 ; Anxiety disorder, unspecified F41.9 and Tobacco abuse Z72.0 [facility] [id number] [place] [address] 53287- 3720 30 Jan, 2017 Major depressive disorder, recurrent, moderate F33.1 [facility] [id number] [place] [address] 69500- 0517 16 Jan, 2017 [facility] [id number] [place] [address] 57596- 3411 14 Jan, 2017 [facility] [id number] [place] [address] 58359- 7168 Jan, Major depressive disorder, recurrent, moderate F33.1 [facility] [id number] [place] [address] 97268- 4254 Jan, Major depressive disorder, recurrent, moderate F33.1 ; Anxiety disorder, unspecified F41.9 ; Methamphetamine use disorder, moderate, 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 and Tobacco abuse Z72.0 [facility] [id number] [place] [address] 64625- 6162 Jan, [facility] [id number] [place] [address] 21952- 6477 Jan, Chronic obstructive pulmonary disease with acute exacerbation J44.1 and Diabetes E11.9 [facility] [id number] [place] [address] 51370- 7495 Jan, [facility] [id number] [place] [address] 34286- 8555 Jan, [facility] [address] [place] [address] 87735- 4205 Dec, Acute respiratory failure with hypoxia J96.01 and Chronic bronchitis, unspecified chronic bronchitis type J42 [facility] [id number] [place] [address] 48389- 7978 Dec, [facility] [address] [place] [address] [id number] 26 Sep, 2017 Dental caries K02.9 and Dental examination Z01.20 [facility] [address] [place] [address] 19309- 9570 05 Nov, 2016 Major depressive disorder, recurrent, moderate F33.1 ; Anxiety disorder, unspecified F41.9 and 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 [facility] [id number] [place] [address] [id number] Oct, Dental examination Z01.20 [facility] [id number] [place] [address] 45053- 7972 Oct, [facility] [id number] [place] [address] 43235- 3174 Oct, Diabetes E11.9 and Thrush B37.0 [facility] [id number] [place] [address] 78483- 2248 Oct, [facility] [id number] [place] [address] 21161- 5206 Oct, [facility] [id number] [place] [address] 79047- 9073 Oct, [facility] [id number] [place] [address] 37977- 1835 Sep, Major depressive disorder, recurrent, moderate F33.1 ; Anxiety disorder, unspecified F41.9 and Bipolar disorder, unspecified F31.9 [facility] [id number] [place] [address] 33009- 4214 Sep, Acute exacerbation of chronic obstructive pulmonary disease (COPD) J44.1 and Migraine G43.909 [facility] [id number] [place] [address] 20922- 6996 Sep, [facility] [id number] [place] [address] [id number] Sep, [facility] [id number] [place] [address] 15251- 4121 Sep, Acute exacerbation of chronic obstructive pulmonary disease (COPD) J44.1 [facility] [address] [place] [address] 24367 -8364 15 Sep, 2016 Acute exacerbation of chronic obstructive pulmonary disease (COPD) J44.1 [facility] [id number] [place] [address] 03579- 5530 29 Aug, 2016 [facility] [id number] [place] [address] 89814- 6062 Aug, Major depressive disorder, recurrent, moderate F33.1 ; Anxiety disorder, unspecified F41.9 and 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 [facility] [address] 9[address]85- 0654 19 Aug, 2016 Wheezing R06.2 ; Non morbid obesity due to excess calories E66.09 ; Migraine without aura and without status migrainosus, not intractable G43.009 and Tobacco abuse Z72.0 [facility] [id number] [place] [address] [id number] 14 Aug, 2016 Encounter for dental examination Z01.20 [facility] [id number] [place] [address] 61350- 5466 02 Aug, 2016 Major depressive disorder, recurrent, moderate F33.1 ; Anxiety disorder, unspecified F41.9 and 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 [facility] [id number] [place] [address] 84886- 8826 July, [facility] [id number] [place] [address] 42679- 1090 July, [facility] [id number] [place] [address] 30607- 1943 July, [facility] [id number] [place] [address] 49602- 4772 July, Diabetes E11.9 [facility] [id number] [place] [address] 81001- 2343 Jun, Major depressive disorder, recurrent, moderate F33.1 [facility] [id number] [place] [address] 92383- 6004 Jun, Major depressive disorder, recurrent, moderate F33.1 ; 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 ; Generalized anxiety disorder F41.1 and Bipolar disorder, unspecified F31.9 [facility] [address] 89059- 3240 Jun, Diabetes E11.9 ; Migraine G43.909 ; Thrush B37.0 and Wheezing R06.2 [facility] [address] [id number] Jun, Dental examination Z01.20 [facility] [address] 75526- 5223 Jun, [facility] [address] 56683- 5787 Jun, Major depressive disorder, recurrent, moderate F33.1 ; Anxiety disorder, unspecified F41.9 and 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 [facility] [address] 98434- 3561 Jun, [facility] [address] 75557- 7705 Jun, Wheezing R06.2 [facility] [address] [id number] Jun, Dental caries K02.9 [facility] [address] 48611- 1770 Jun, Major depressive disorder, recurrent, moderate F33.1 ; Anxiety disorder, unspecified F41.9 and 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 [facility] [address] 09820- 6599 Jun, RLQ abdominal pain R10.31 ; Diabetes E11.9 ; Obesity, unspecified obesity severity, unspecified obesity type E66.9 ; Wheezing R06.2 and Abnormal urinalysis R82.90 [facility] [facility] [id number] [place] [address] 65975- 2656 May, [facility] [id number] [place] [address] 75204- 9524 May, Well woman exam Z01.419 ; Breast cancer screening Z12.39 ; Cervical cancer screening Z12.4 ; Urinary frequency R35.0 ; Edema, unspecified type R60.9 and Chronic constipation K59.09 [facility] [id number] [place] [address] 81106- 6497 May, Major depressive disorder, recurrent, moderate F33.1 ; Anxiety disorder, unspecified F41.9 and 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 [facility] [address] [id number] May, Dental examination Z01.20 [facility] [id number] [place] [address] 87355- 8182 May, [place] [address] 70358- 7565 May, [facility] [id number] [place] [address] 10027- 6947 May, Chronic constipation K59.09 [place] [facility] [id number] [place] [address] 60641- 1888 Apr, [facility] [id number] [place] [address] 48133- 0654 Apr, Major depressive disorder, recurrent, moderate F33.1 ; Anxiety disorder, unspecified F41.9 and 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 [facility] [id number] [place] [address] 11632- 0060 Apr, [facility] [address] 83122- 9572 Mar, Major depressive disorder, recurrent, moderate F33.1 [place] [id number] [place] [address] 94080- 2511 Mar, Major depressive disorder, recurrent, moderate F33.1 ; Generalized anxiety disorder F41.1 and Bipolar I disorder, most recent episode depressed with anxious distress F31.30 [facility] [id number] [place] [address] 65653- 4334 Mar, Diabetes E11.9 ; Non morbid obesity due to excess calories E66.09 ; Breast cancer screening Z12.39 and Encounter for immunization Z23 [place] [address] 92564- 3052 Mar, Major depressive disorder, recurrent, moderate F33.1 ; Anxiety disorder, unspecified F41.9 and 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 [place] [id number] [place] [address] 09348- 8698 Mar, [facility] [id number] [place] [address] 97453- 3958 Feb, Major depressive disorder, recurrent, moderate F33.1 ; Anxiety disorder, unspecified F41.9 and 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 [place] [id number] [place] [address] 73268- 9868 Feb, [place] [id number] [place] [address] 32743- 6330 Feb, [facility] [id number] [place] [address] 01266- 4580 Jan, Major depressive disorder, recurrent, moderate F33.1 ; Generalized anxiety disorder F41.1 and Bipolar disorder, current episode depressed, severe, without psychotic features F31.4 [facility] [id number] [place] [address] 91519- 2479 Jan, Major depressive disorder, recurrent, moderate F33.1 ; Anxiety disorder, unspecified F41.9 and 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 [facility] [address] [address]- 7136 Jan, Bronchitis J40 [facility] [id number] [place] [address] 83606- 7518 15 Jan, 2016 [facility] [address] [place] [address] 17686- 7315 Jan, [facility] [address] [place] [address] 65741- 7964 Jan, Elbow injury, right, initial encounter S59.901A ; Multiple contusions T14.8 and Cervical strain, acute, initial encounter S16.1XXA [place] [address] [place] [address] 15611- 8595 Dec, Major depressive disorder, recurrent, moderate F33.1 ; Generalized anxiety disorder F41.1 and Bipolar disorder with depression F31.30 [place] [address] [place] [address] 30950- 6085 Dec, [facility] [address] [place] [address] 20371- 5329 Dec, [facility] [address] [place] [address] 47626- 3060 Dec, [facility] [address] [place] [address] 62051- 5561 Dec, [facility] [address] [place] [address] 41573- 4722 Dec, Yeast infection B37.9 [place] [address] [place] [address] 14519- 4005 Dec, Pneumonia of both lungs due to methicillin resistant Staphylococcus aureus (MRSA), unspecified part of lung J15.212 and Benzodiazepine overdose, accidental or unintentional, subsequent encounter T42.4X1D [place] [address] [place] [address] 85637- 2942 Dec, [facility] [address] [place] [address] 30426- 7215 Dec, [facility] [id number] [place] [address]- [address]40 Dec, Knee pain, left M25.562 and Edema, unspecified type R60.9 [facility] [id number] [place] [address] 929288- 9588 Dec, [facility] [id number] [place] [address] 08896- 4598 Dec, Anxiety disorder, unspecified F41.9 and Bipolar disorder, unspecified F31.9 [place] [address] [place] [address] 75538- 1933 Nov, Major depressive disorder, recurrent, moderate F33.1 ; Anxiety disorder, unspecified F41.9 and 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 [place] [id number] [place] [address] 71155- 0649 Nov, [facility] [id number] [place] [address] 86536- 4224 Nov, Migraine without aura and without status migrainosus, not intractable G43.009 [facility] [address] [place] [address] 13635- 4877 Nov, Migraine G43.909 [facility] [id number] [place] [address] 78960- 9897 Nov, [facility] [id number] [place] [address] 05735- 9151 Nov, Major depressive disorder, recurrent, moderate F33.1 ; Anxiety disorder, unspecified F41.9 and 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 [facility] [address] [place] [address] 19926- 3099 Oct, Chronic constipation K59.09 and Obesity, unspecified obesity severity, unspecified obesity type E66.9 [place] [id number] [place] [address] 35503- 5521 Oct, Obesity, unspecified obesity severity, unspecified obesity type E66.9 ; Chronic constipation K59.09 and Anxiety disorder, unspecified F41.9 [place] [id number] [place] [address] 30235- 9934 Oct, [place] [id number] [place] [address] 75188- 0072 Sep, Diabetes E11.9 ; Edema, unspecified type R60.9 ; Varicose vein of leg I83.90 and Obesity, unspecified obesity severity, unspecified obesity type E66.9 [place] [id number] [place] [address] 30158- 7503 Sep, Edema, unspecified type R60.9 ; Diabetes E11.9 and Knee pain , left M25.562 [place] [id number] [place] [address] 51586- 4231 Sep, [place] [address] 28597- 2471 Sep, [place] [id number] [place] [address] 07157- 7283 Sep, Major depressive disorder, recurrent, moderate F33.1 ; Generalized anxiety disorder F41.1 and Bipolar disorder, unspecified F31.9 [place] [id number] [place] [address] 84586- 6735 Aug, Chondromalacia of left knee M94.262 [place] [id number] [place] [address] 07043- 1706 Aug, Major depressive disorder, recurrent, moderate F33.1 ; Anxiety disorder, unspecified F41.9 and 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 [place] [id number] [place] [address] 59385- 2550 Aug, [facility] [address] [place] [address] 76704- 8214 06 Aug, 2015 Osteoarthritis of left knee M17.9 [facility] [id number] [place] [address] 77358- 1980 02 Aug, 2015 [facility] [id number] [place] [address] 92768- 8237 July, Major depressive disorder, recurrent, moderate F33.1 ; Anxiety disorder, unspecified F41.9 and 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 [facility] [id number] [place] [address] 19798- 8914 July, [facility] [id number] [place] [address] 80592- 1869 July, Chronic constipation K59.09 [facility] [id number] [place] [address] 54054- 0397 Jun, [facility] [id number] [place] [address] 22611- 5848 15 Jun, 2015 [facility] [id number] [place] [address] 78739- 9422 14 Jun, 2015 Osteoarthritis of left knee M17.9 [facility] [id number] [place] [address] 72858- 9735 Jun, [facility] [id number] [place] [address] 41057- 2606 Jun, Generalized anxiety disorder F41.1 ; Bipolar disorder, unspecified F31.9 and Major depressive disorder, recurrent, moderate F33.1 [facility] [id number] [place] [address] 81518- 0616 07 Jun, 2015 Migraine G43.909 [facility] [id number] [place] [address] 43249- 3830 07 Jun, 2015 Left knee pain M25.562 ; Chronic constipation K59.09 ; Dry mouth R68.2 ; Yeast vaginitis B37.3 and Memory loss R41.3 [place] [id number] [place] [address] 03525- 5546 Jun, [place] [id number] [place] [address] [phone] May, [place] [address] [phone] May, [place] [id number] [place] [address] [phone] May, [place] [address] [phone]- [phone] May, [place] [id number] [place] [address] [phone] May, Acute bronchitis with COPD J44.0 ; Knee pain, left M25.562 and Encounter for tobacco use cessation counseling Z71.6 [place] [address] [id number] [place] [address] 81546- 1660 May, [address] [address]- 3671 Apr, Diabetes E11.9 ; TMJ (sprain of temporomandibular joint) S03.4XXA ; Tobacco abuse Z72.0 ; Migraine G43.909 and Anxiety F41.9 [place] [address] [id number] [place] [address] 90273- 5103 Apr, Generalized anxiety disorder F41.1 and Bipolar disorder, unspecified F31.[address] 22175- 1289 Apr, Major depressive disorder, recurrent, moderate F33.1 ; Anxiety disorder, unspecified F41.9 and 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 [place] [address] [address]71- 1552 Apr, [facility] [id number] [place] [address] 10367- 2820 Mar, [facility] [id number] [place] [address] 22956- 0765 Feb, [facility] [id number] [place] [address] 70733- 5307 Feb, Major depressive disorder, recurrent, moderate F33.1 ; Anxiety disorder, unspecified F41.9 and 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 [facility] [id number] [place] [address] 02920- 9713 Feb, [facility] [id number] [place] [address] 58352- 5888 Feb, Generalized anxiety disorder F41.1 and Bipolar disorder, unspecified F31.9 [facility] [id number] [place] [address] 07747- 8652 Jan, [facility] [id number] [place] [address] 21695- 1673 Jan, [facility] [id number] [place] [address] 44615- 4082 Jan, Bipolar disorder, unspecified F31.9 and Generalized anxiety disorder F41.1 [facility] [id number] [place] [address] 71461- 1606 Dec, [facility] [id number] [place] [address] 66952- 6134 Dec, Bipolar disorder, unspecified F31.9 and Generalized anxiety disorder F41.1 [facility] [id number] [place] [address] 89232- 8154 Dec, Generalized anxiety disorder F41.1 and Major depressive disorder, recurrent, moderate F33.1 [facility] [id number] [place] [address] 22469- 3856 Oct, Headache 784.0 ; Cough 786.2 ; Vomiting and diarrhea 787.03 and Dysuria 788.1 [facility] [id number] [place] [address] 25598- 2990 Aug, [facility] [id number] [place] [address] 88084- 1650 Aug, Headache 784.0 and Shortness of breath 786.05 [facility] [id number] [place] [address] 77628- 9004 Aug, [facility] [id number] [place] [address] 08107- 6618 Aug, Migraine 346.90 [facility] [id number] [place] [address] 74621- 6928 Jun, [facility] [id number] [place] [address] 60657- 8001 Jun, [facility] [id number] [place] [address] 35434- 3518 May, [facility] [id number] [place] [address] 97314- 4433 May, [facility] [id number] [place] [address] 75983- 8538 May, [facility] [address] [address]- 9382 May, [facility] [id number] [place] [address] 81973- 3164 May, [facility] [address] [address]- 6219 May, [facility] [id number] [place] [address] 616838- 9337 Apr, [facility] [address] 9165 Apr, [facility] [id number] [place] [address]- 3707 04 Apr, 2014 [facility] [address] [id number] [place] [address]- 9770 Apr, 2014 [facility] [place] [facility] [address] [id number] [place] [address]- 7516 Apr, [facility] [address] [id number] [place] [address]- 1752 Mar, [facility] [place] [facility] [address] [id number] [place] [address]- 3205 Mar, [facility] [address] [id number] [place] [address]- 8897 Mar, [facility] [address] [id number] [place] [address]- 9567 Mar, [facility] [address] [id number] [place] [address]- 9108 Feb, [facility] [address] [id number] [place] [address]- 2568 Feb, [facility] [place] [facility] [address] [id number] [place] [address]- 5858 Feb, [facility] [address] [id number] [place] [address]- 8309 18 Feb, 2014 [facility] [place] [facility] [address] [id number] [place] [address]- 6142 16 Feb, 2014 [facility] [place] [facility] [address] [id number] [place] 9093 16 Feb, 2014 [facility] [place] [facility] [address] [id number] [place] [address]- 3740 Feb, [facility] [place] [facility] [address] [id number] [place] [address]- 8916 Feb, [facility] [place] [facility] [address] [id number] [place] [address]- 1445 Feb, [facility] [place] [facility] [address] [id number] [place] [address]- 5652 Feb, [facility] [place] [facility] [address] [id number] [place] [address]- 3458 Feb, [facility] [place] [facility] [address] [id number] [place] [address]- 1188 Feb, [facility] [place] [facility] [address] [id number] [place] [address]- 9617 Jan, [facility] [place] [facility] [address] [id number] [place] [address]- 9482 Jan, [facility] [place] [facility] [address] [id number] [place] [address]- 0030 Dec, [facility] [place] [facility] [address] [id number] [place] [address]- 2778 Dec, [facility] [place] [facility] [address] [id number] [place] [address]- 8060 Dec, [facility] [place] [facility] [address] [id number] [place] [address]- 8007 Dec, [facility] [place] [facility] [address] [id number] [place] [address]- 7364 Dec, [facility] [place] [facility] [address] [id number] [place] [address]- 5921 Dec, [facility] [place] [facility] [address] [id number], [place] [address]- 2632 Sep, [facility] [place] [facility] [address] [id number] [place] [address]- 6620 Sep, [facility] [place] [facility] [address] [id number] [place] [address]- 7132 Sep, [facility] [place] [facility] [address] [id number] [place] [address]- 5706 Sep, [facility] [place] [facility] [address] [id number] [place] [address]- 3814 14 Sep, 2013 [facility] [place] [facility] [address] [id number] [place] [address]- 4742 14 Sep, 2013 [facility] [place] [facility] [address] [id number] [place] [address]- 9181 07 Sep, 2013 [facility] [place] [facility] [address] [id number] [place] [address]- 6439 07 Sep, 2013 [facility] [place] [facility] [address] [id number] [place] [address]- 2221 06 Sep, 2013 [facility] [place] [facility] [address] [id number] [place] [address]- 5636 06 Sep, 2013 [facility] [place] [facility] [address] [id number] [place] [address]- 4502 24 Aug, 2013 [facility] [place] [facility] [address] [id number] [place] [address]- 9566 Aug, [facility] [place] [facility] [address] [id number] [place] [address]- 2704 Aug, [facility] [place] [facility] [address] [id number] [place] [address]- 0648 Aug, [facility] [place] [facility] [address] [id number] [place] [address]- 1862 17 Aug, 2013 [facility] [place] [facility] [address] [id number] [place] [address]- 3215 14 Aug, 2013 [facility] [place] [facility] [address] [id number] [place] [address]- 4598 14 Aug, 2013 [facility] [place] [facility] [address] [id number] [place] [address]- 5093 Aug, [facility] [place] [facility] [address] [id number] [place] [address]- 8349 Aug, [facility] [place] [facility] [address] [id number] [place] [address]- 8083 05 Aug, 2013 [facility] [place] [facility] [address] [id number] [place] [address]- 2616 Aug, [facility] [place] [facility] [address] [id number] [place] [address]- 0489 Aug, [facility] [place] [facility] [address] [id number] [place] [address]- 3656 Aug, [facility] [place] [facility] [address] [id number] [place] [address]- 9548 July, [facility] [place] [facility] [address] [id number] [place] [address]- 0291 July, [facility] [place] [facility] [address] [id number] [place] [address]- 9610 July, [facility] [place] [facility] [address] [id number] [place] [address]- 2732 July, [facility] [place] [facility] [address] [id number] [place] [address]- 0868 July, [facility] [place] [facility] [address] [id number] [place] [address]- 5889 July, [facility] [place] [facility] [address] [id number] [place] [address]- 2984 July, [facility] [place] [facility] [address] [id number] [place] [address]- 9543 Jun, [facility] [place] [facility] [address] [id number] [place] [address]- 7071 Jun, [facility] [place] [facility] [address] [id number] [place] [address]- 6047 18 Jun, 2013 [facility] [place] [facility] [address] [id number] [place] [address]- 3192 Jun, [facility] [place] [facility] [address] [id number] [place] [address]- 7729 Jun, [facility] [place] [facility] [address] [id number] [place] [address]- 7725 08 Jun, 2013 [facility] [place] [facility] [address] [id number] [place] [address]- 5017 08 Jun, 2013 [facility] [place] [facility] [address] [id number] [place] [address]- 8666 17 May, 2013 [facility] [place] [facility] [address] [id number] [place] [address]- 3611 17 May, 2013 [facility] [place] [facility] [address] [id number] [place] [address]- 5163 14 May, 2013 [facility] [place] [facility] [address] [id number] [place] [address]- 4387 14 May, 2013 [facility] [place] [facility] [address] [id number] [place] [address]- 9777 13 May, 2013 [facility] [place] [facility] [address] [id number] [place] [address]- 9147 13 May, 2013 [facility] [place] [facility] [address] [id number] [place] [address]- 6102 10 May, 2013 [facility] [place] [facility] [address] [id number] [place] [address]- 3229 10 May, 2013 [facility] [place] [facility] [address] [id number] [place] [address]- 0930 07 May, 2013 [facility] [place] [facility] [address] [id number] [place] [address]- 3663 26 Apr, 2013 [facility] [place] [facility] [address] [id number] [place] [address]- 5099 Apr, [facility] [place] [facility] [address] [id number] [place] [address]- 3053 18 Apr, 2013 [facility] [place] [facility] [address] [id number] [place] [address]- 5441 15 Apr, 2013 [facility] [place] [facility] [address] [id number] [place] [address]- 8098 15 Apr, 2013 [facility] [place] [facility] [address] [id number] [place] [address]- 6050 Apr, [facility] [place] [facility] [address] [id number] [place] [address]- 9954 Apr, [facility] [place] [facility] [address] [id number] [place] [address]- 6561 Apr, [facility] [place] [facility] [address] [id number] [place] [address]- 1209 Apr, [facility] [place] [facility] [address] [id number] [place] [address]- 4883 Apr, [facility] [place] [facility] [address] [id number] [place] [address]- 3292 Mar, [facility] [place] [facility] [address] [id number] [place] [address]- 3583 Mar, [facility] [place] [facility] [address] [id number] [place] [address]- 4642 Mar, [facility] [place] [facility] [address] [id number] [place] [address]- 7905 Mar, [facility] [place] [facility] [address] [facility] [id number] [place] [address]- 3060 Mar, [facility] [place] [facility] [address] [id number] [place] [address]- 3823 Mar, [facility] [place] [facility] [address] [id number] [place] [address]- 3205 Mar, [facility] [place] [facility] [address] [id number] [place] [address]- 2930 Mar, [facility] [place] [facility] [address] [id number] [place] [address]- 2152 Feb, [facility] [place] [facility] [address] [id number] [place] [address]- 7247 Feb, [facility] [place] [facility] [address] [id number] [place] [address]- 4899 Jan, [facility] [place] [facility] [address] [id number] [place] [address]- 5425 18 Jan, 2013 [facility] [place] [facility] [address] [id number] [place] [address]- 0503 15 Jan, 2013 [facility] [place] [facility] [address] [id number] [place] [address]- 9155 15 Jan, 2013 [facility] [place] [facility] [address] [id number] [place] [address]- 2421 Jan, [facility] [place] [facility] [address] [id number] [place] [address]- 3268 Jan, [facility] [place] [facility] [address] [id number] [place] [address]- 1463 Jan, [facility] [place] [facility] [address] [id number] [place] [address]- 0664 Jan, [facility] [place] [facility] [address] [id number] [place] [address]- 2909 Dec, [facility] [place] [facility] [address] [id number] [place] [address]- 6657 10 Dec, 2012 [facility] [place] [facility] [address] [id number] [place] [address]- 9002 10 Dec, 2012 [facility] [place] [facility] [address] [id number], [place] [address]- 7950 20 Nov, 2012 [facility] [place] [facility] [address] [id number], [place] [address]- 6043 13 Nov, 2012 [facility] [place] [facility] [address] [id number] [place] [address]- 6320 12 Nov, 2012 [facility] [place] [facility] [address] [id number] [place] [address]- 5862 09 Sep2012 [facility] [place] [facility] [address] [id number] [place] [address]- 2548 06 Sep, 2012 [facility] [place] [facility] [address] [id number] [place] [address]- 8867 Nov, [facility] [address] [id number] [place] [address]- 8083 Oct, [facility] [place] [facility] [address] [id number] [place] [address]- 7080 Oct, [facility] [address] [id number] [place] [address]- 0254 Sep, [facility] [place] [facility] [address] [id number] [place] [address]- 9707 Sep, [facility] [address] [id number] [place] [address]- 0431 Sep, [facility] [address] [id number] [place] [address]- 9128 Sep, [facility] [address] [id number] [place] [address]- 7094 Sep, [facility] [address] [id number] [place] [address]- 5299 Sep, [facility] [place] [facility] [address] [id number] [place] [address]- 0655 Sep, [facility] [address] [id number] [place] [address]- 9746 Aug, [facility] [place] [facility] [address] [id number] [place] [address]- 9926 14 Aug, 2012 [facility] [place] [facility] [address] [id number] [place] [address]- 9490 Aug, [facility] [place] [facility] [address] [id number] [place] [address]- 0875 Aug, [facility] [place] [facility] [address] [id number] [place] [address]- 1109 Aug, [facility] [place] [facility] [address] [id number] [place] [address]- 1228 Aug, [facility] [address] [id number] [place] [address]- 2166 July, [facility] [address] [id number] [place] [address]- 6703 July, [facility] [address] [id number] [place] [address]- 7125 July, [facility] [place] [facility] [address] [id number] [place] [address]- 2052 July, [facility] [address] [id number] [place] [address]- 6214 July, [facility] [address] [id number] [place] [address]- 5820 July, [facility] [address] [id number] [place] [address]- 1939 Jun, [facility] [address] [id number] [place] [address]- 0022 Jun, [facility] [place] [facility] [address] [id number] [place] [address]- 0284 Jun, [facility] [address] [id number] [place] [address]- 7882 Jun, [facility] [place] [facility] [address] [id number] [place] [address]- 9532 Jun, [facility] [place] [facility] [address] [id number], [place] [address]- 6921 Jun, [facility] [place] [facility] [address] [id number] [place] [address]- 2079 Jun, [facility] [place] [facility] [address] [id number] [place] [address]- 8301 May, [facility] [place] [facility] [address] [id number] [place] [address]- 6481 May, [facility] [place] [facility] [address] [id number], [place] [address]- 8819 26 Apr, 2012 [facility] [address] [id number] [place] [address]- 4606 Apr, 2012 [facility] [place] [facility] [address] [id number] [place] [address] 2546 18 Apr, 2012 [facility] [place] [facility] [address] [id number] [place] [address]- 0336 18 Apr, 2012 [facility] [place] [facility] [address] [id number] [place] [address] 2540 12 Apr, 2012 [facility] [address] [id number] [place] [address]- 8376 08 Apr, 2012 [facility] [place] [facility] [address] [id number] [place] [address] 2546 07 Apr, 2012 [facility] [place] [facility] [address] [id number] [place] [address]- 0776 07 Apr, 2012 [facility] [address] [id number] [place] [address]- 6081 06 Apr, 2012 [facility] [place] [facility] [address] [id number] [place] [address]- 1883 06 Apr, 2012 [facility] [place] [facility] [address] [facility] [id number] [place] [address]- 7584 Apr, [facility] [place] [facility] [address] [id number] [place] [address]- 9405 Mar, [facility] [place] [facility] [address] [id number] [place] [address] Mar, [facility] [place] [facility] [address] [id number] [place] [address] Mar, [facility] [place] [facility] [address] [id number] [place] [address] 2546 Mar, [facility] [place] [facility] [address] [id number] [place] [address] Mar, [facility] [address] [id number] [place] [address] 15 Mar, 2012 [facility] [place] [facility] [address] [id number] [place] [address] 15 Mar, 2012 [facility] [address] [id number] [place] [address] 15 Mar, 2012 [facility] [place] [facility] [address] [id number] [place] [address] Mar, [facility] [address] [id number] [place] [address] Mar, [facility] [address] [id number] [place] [address] Mar, [facility] [address] [id number] [place] [address] Mar, [facility] [address] [id number] [place] [address] Mar, [facility] [place] [facility] [address] [id number] [place] [address] Feb, [facility] [place] [facility] [address] [id number] [place] [address] Feb, [facility] [place] [facility] [address] [id number], [place] [address] 18 Feb, 2012 [facility] [place] [facility] [address] [id number], [place] [address] 18 Feb, 2012 [facility] [place] [facility] [address] [id number] [place] [address] Feb, [facility] [place] [facility] [address] [id number] [place] [address] Feb, [facility] [place] [facility] [address] [id number] [place] [address] 10 Feb, 2012 [facility] [place] [facility] [address] [id number] [place] [address]- [address] Feb, [facility] [place] [facility] [address] [id number] [place] [address] Feb, [facility] [place] [facility] [address] [id number] [place] [address]- 2016 Feb, [facility] [place] [facility] [address] [id number] [place] [address] Feb, [facility] [place] [facility] [address] [id number] [place] [address] Feb, [facility] [place] [facility] [address] [id number] [place] [address]- [address] Feb, [facility] [place] [facility] [address] [id number] [place] [address] Feb, [facility] [place] [facility] [address] [id number] [place] [address] Feb, [facility] [place] [facility] [address] [id number] [place] [address]- [address] Jan, [facility] [place] [facility] [address] [id number] [place] [address] Jan, [facility] [place] [facility] [address] [id number] [place] [address] Jan, [facility] [place] [facility] [address] [id number] [place] [address] Jan, [facility] [place] [facility] [address] [id number], [place] [address] Dec, [facility] [place] [facility] [address] [id number] [place] [address] Dec, [facility] [place] [facility] [address] [id number] [place] [address] Dec, [facility] [place] [facility] [address] [id number], [place] [address] Dec, [facility] [place] [facility] [address] [id number] [place] [address]- [address]80 25 Dec, 2011 [facility] [place] [facility] [address] [id number] [place] [address]- [address] 25 Dec, 2011 [facility] [place] [facility] [address] [id number] [place] [address] 16 Dec, 2011 [facility] [place] [facility] [address] [id number] [place] [address] 16 Dec, 2011 [facility] [place] [facility] [address] [id number] [place] [address]- [address] 07 Dec, 2011 [facility] [place] [facility] [address] [id number] [place] [address]- [address] 04 Dec, 2011 [facility] [place] [facility] [address] [id number] [place] [address]- [address]20 03 Dec, 2011 [facility] [place] [facility] [address] [id number] [place] [address]- 39[address] 25 Sep, 2011 [facility] [place] [facility] [address] [id number] [place] [address]- [address] 24 Sep, 2011 [facility] [place] [facility] [address] [id number] [place] [address]- [address] 20 Sep, 2011 [facility] [place] [facility] [address] [id number] [place] [address]- [address] 19 Sep, 2011 [facility] [place] [facility] [address] [id number] [place] [address]- [address] 17 Sep, 2011 [facility] [place] [facility] [address] [id number] [place] [address]- 9256 16 Sep, 2011 [facility] [place] [facility] [address] [id number] [place] [address]- [address]44 14 Sep, 2011 [facility] [place] [facility] [address] [id number] [place] [address]- [address] 13 Sep, 2011 [facility] [place] [facility] [address] [id number] [place] [address]- [address] 12 Nov, 2011 [facility] [place] [facility] [address] [id number] [place] [address]- [address]58 07 Nov, 2011 [facility] [place] [facility] [address] [id number] [place] [address]- [address] 06 Nov, 2011 [facility] [place] [facility] [address] [id number] [place] [address]- [address] 06 Nov, 2011 [facility] [place] [facility] [address] [id number] [place] [address]- [address]182 05 Nov, 2011 [facility] [place] [facility] [address] [id number] [place] [address]- [address] Oct, [facility] [place] [facility] [address] [id number] [place] [address]- [address] Oct, [facility] [place] [facility] [address] [id number] [place] [address]- 120[address] Oct, [facility] [place] [facility] [address] [id number] [place] [address]- [address] Oct, [facility] [place] [facility] [address] [id number] [place] [address]- 97[address] Oct, [facility] [place] [facility] [address] [id number] [place] [address]- 35[address] Oct, [facility] [place] [facility] [address] [id number] [place] [address]- [address] Oct, [facility] [place] [facility] [address] [id number] [place] [place] [address] 16 Oct, 2011 [facility] [place] [facility] [address] [id number] [place] [address] 15 Oct, 2011 [facility] [place] [facility] [address] [id number] [place] [address] 13 Oct, 2011 [facility] [place] [facility] [address] [id number] [place] [address] 08 Oct, 2011 [facility] [place] [facility] [address] [id number] [place] [address] Sep, [facility] [address] [id number] [place] [address] Sep, [facility] [address] [id number] [place] [address] Sep, [facility] [address] [id number] [place] [address] Sep, [facility] [address] [id number] [place] [address] Sep, [facility] [address] [id number] [place] [address] Sep, [facility] [address] [id number] [place] [address] Aug, [facility] [address] [id number] [place] [address] July, [facility] [address] [id number] [place] [address] July, [facility] [address] [id number] [place] [address] Jun, [facility] [address] [id number] [place] [address] Jun, [facility] [place] [facility] [address] [id number] [place] [address] Jun, [facility] [address] [id number] [place] [address] Jun, [facility] [place] [facility] [address] [id number] [place] [address] Jun, [facility] [place] [facility] [address] [id number] [place] [address] Jun, [facility] [address] [id number] [place] [address] Jun, [facility] [place] [facility] [address] [id number] [place] [address]- [address] 08 Jun, 2011 [facility] [place] [facility] [address] [id number] [place] [address] 42[address] Jun, [facility] [place] [facility] [address] [id number] [place] [address] Jun, [facility] [place] [facility] [address] [id number] [place] [address] 2636 Jun, [facility] [place] [facility] [address] [id number] [place] [address]69 19 May, 2011 [facility] [place] [facility] [address] [id number] [place] [address] 16 May, 2011 [facility] [place] [facility] [address] [facility] [id number] [place] [address] 14 May, 2011 [facility] [place] [facility] [address] [id number] [place] [address] May, [facility] [place] [facility] [address] [id number] [place] [address] Apr, [facility] [place] [facility] [address] [id number] [place] [address] Apr, [facility] [place] [facility] [address] [id number] [place] [address] Apr, [facility] [place] [facility] [address] [id number] [place] [address] 0986 Apr, [facility] [place] [facility] [address] [id number] [place] [address] 2404 Apr, [facility] [place] [facility] [address] [id number] [place] [address] Apr, [facility] [place] [facility] [address] [facility] [id number] [place] [address] 56[address] Apr, [facility] [place] [facility] [address] [facility] [id number] [place] [address] 8193 Apr, [facility] [address] [id number] [place] [address] Mar, [facility] [address] [id number] [place] [address] Mar, [facility] [address] [id number] [place] [address] Mar, [facility] [address] [id number] [place] [address] Mar, [facility] [address] [id number] [place] [address] Mar, [facility] [address] [id number] [place] [address] Mar, [facility] [address] [id number] [place] [address] Mar, [facility] [address] [id number] [place] [address] 7760 Mar, [facility] [address] [id number] [place] [address] Mar, [facility] [address] [id number] [place] [address] 2427 Mar, [facility] [address] [id number] [place] [address] Mar, [facility] [address] [id number] [place] [address] 79[address] Mar, [facility] [address] [id number] [place] [address] Mar, [facility] [address] [id number] [place] [address] 4[address] Mar, [facility] [address] [id number] [place] [address]- 1336 Mar, [facility] [place] [facility] [address] [id number] [place] [address] 8441 Mar, [facility] [place] [facility] [address] [id number] [place] [address]- 9[address] Feb, [facility] [place] [facility] [address] [id number] [place] [address]- 2063 Feb, [facility] [place] [facility] [address] [id number] [place] [address]- 4666 Feb, [facility] [place] [facility] [address] [id number] [place] [address]- 6853 Jan, [facility] [place] [facility] [address] [id number] [place] [address] 39[address] Jan, [facility] [place] [facility] [address] [id number] [place] [address]- 1406 Jan, [facility] [place] [facility] [address] [id number] [place] [address] 9794 Dec, [facility] [place] [facility] [address] [id number] [place] [address] 2409 Dec, [facility] [place] [facility] [address] [id number], [place] [address] Nov, [facility] [place] [facility] [address] [id number] [place] [address] 7346 Oct, [facility] [place] [facility] [address] [id number], [place] [address] Oct, [facility] [place] [facility] [address] [id number] [place] [address]- 8808 Oct, [facility] [place] [facility] [address] [id number], [place] [address] Sep, [facility] [place] [facility] [address] [id number], [place] [address]- [address] Apr, [facility] [place] [facility] [address] [id number], [place] [address] Feb, [facility] [address] [facility] [id number] [place] [address] Jan, IMMUNIZATIONS No Known Immunizations SOCIAL HISTORY Never Assessed REASON FOR VISIT PALS refill request PLAN OF CARE VITAL SIGNS MEDICATIONS [...] 2/2 Benzos OD, pneumonia MRSA, [facility], Hypokalemia-- [facility] 12/20/2015 Hospitalization History COPD exacerbation, Asthma-[facility] 09/21/16 Hospitalization History COPD-[facility] 12/30/2016 Hospitalization History [facility] [place] [facility]-last around 2006 or so. Hospitalization History for COPD x2 Mar 2017 Hospitalization History Upper GI bleed at apr 2017
--- OUTSIDE RECORDS SUMMARY | 2017-08-04 18:19 | XMS REPORT ---
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 Active Problem Thrush B37.0 Active 35826188 Problem TMJ (sprain of temporomandibular joint) S03.4XXA Active 41923155 Problem Anxiety F41.9 Active 64406177 Problem Tobacco abuse Z72.0 Active 71718466 Problem Non morbid obesity due to excess calories E66.09 Active 818790810 Problem Migraine G43.909 Active 65983019 Problem History of MRSA infection Z86.14 Active 642206747 Problem Knee pain, left M25.562 Active 09594787 Problem Obesity, unspecified obesity severity, unspecified obesity type E66.9 Active 563431450 Problem Migraine without aura and without status migrainosus, not intractable G43.009 Active 813627447 Problem Other emphysema J43.8 Active 65537253 Problem Intractable cyclical vomiting with nausea G43.A1 Active 41359867 Problem Viral illness B34.9 Active 97936992 Problem Dry mouth R68.2 Active 95963699 Problem Encounter for tobacco use cessation counseling Z71.6 Active 908059834 Problem Acute bronchitis with COPD J44.0 Active [id number] Problem Methamphetamine use disorder, moderate, 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 Active 40664562 Problem Chronic bronchitis, unspecified chronic bronchitis type J42 Active 32842370 Problem COPD exacerbation J44.1 Active 815334235 Problem Diabetes E11.9 Active 164159020 Problem Memory loss R41.3 Active 15491201 Problem Left knee pain M25.562 Active 82396689 Problem Chronic constipation K59.09 Active 479800693 Problem Yeast vaginitis B37.3 Active 48647545 Problem Generalized anxiety disorder F41.1 Active 21860782 Problem Bipolar disorder with depression F31.30 Active 74226429 Problem Bipolar disorder, unspecified F31.9 Active 82125271 Problem Bipolar disorder, current episode depressed, severe, without psychotic features F31.4 Active 67429588 ALLERGIES No Information ENCOUNTERS Encounter Location Date Diagnosis [facility] [id number] [place] [address] 13144- 3596 Jun, [facility] [address] [address]- [address] 21 May, 2017 [facility] [address] 09763- 8103 May, [facility] [address] 15523 -8242 17 May, 2017 [facility] [id number] [place] [address] 44013- 1695 16 May, 2017 [facility] [id number] [place] [address] 21292- 4041 15 May, 2017 [facility] [id number] [place] [address] 87174- 1803 14 May, 2017 Diarrhea, unspecified type R19.7 and Intractable cyclical vomiting with nausea G43.A1 [facility] [id number] [place] [address] 19482- 0025 12 May, 2017 [facility] [id number] [place] [address] 93300- 4100 05 May, 2017 [facility] [address] 27521- 1430 28 Apr, 2017 COPD exacerbation J44.1 ; Esophageal candidiasis B37.81 ; Other acute gastritis with hemorrhage K29.01 and Acute posthemorrhagic anemia D62 [facility] [address] [address] Apr, Viral illness B34.9 and COPD exacerbation J44.1 [facility] [id number] [place] [address] 00586 -1909 Apr, Shortness of breath R06.02 and Pneumonia of both lower lobes due to infectious organism J18.9 [facility] [id number] [place] [address] 06772 -2250 Mar, COPD with acute exacerbation J44.1 [facility] [id number] [place] [address] 64550- 5840 Mar, Chronic obstructive pulmonary disease with acute exacerbation J44.1 and Diabetes E11.9 [facility] [id number] [place] [address] 07060- 7867 Mar, [facility] [id number] [place] [address] 11330- 0846 Mar, [facility] [id number] [place] [address] 52601 -8100 Mar, COPD exacerbation J44.1 [facility] [id number] [place] [address] 97695- 5937 Mar, [facility] [id number] [place] [address] 35709- 4410 Mar, Migraine G43.909 ; Hypokalemia E87.6 and Type 2 diabetes mellitus without complications E11.9 [facility] [address] [place] [address] 16456- 3801 Feb, [facility] [id number] [place] [address] 51855- 7964 Feb, [facility] [id number] [place] [address] 80712- 5364 Feb, Methamphetamine use disorder, moderate, 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 ; Major depressive disorder, recurrent, moderate F33.1 ; Anxiety disorder, unspecified F41.9 and Tobacco abuse Z72.0 [facility] [address] [place] [address] 61671- 9285 30 Jan, 2017 Major depressive disorder, recurrent, moderate F33.1 [facility] [id number] [place] [address] 69991- 6088 16 Jan, 2017 [facility] [id number] [place] [address] 74740- 7769 14 Jan, 2017 [facility] [id number] [place] [address] 91634- 4689 Jan, Major depressive disorder, recurrent, moderate F33.1 [facility] [id number] [place] [address] 01494- 1188 Jan, Major depressive disorder, recurrent, moderate F33.1 ; Anxiety disorder, unspecified F41.9 ; Methamphetamine use disorder, moderate, 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 and Tobacco abuse Z72.0 [facility] [id number] [place] [address] 77622- 3140 07 Jan, 2017 [facility] [id number] [place] [address] 19014- 4995 Jan, Chronic obstructive pulmonary disease with acute exacerbation J44.1 and Diabetes E11.9 [facility] [id number] [place] [address] 32244- 2659 Jan, [facility] [id number] [place] [address] 95434- 1194 Jan, [facility] [id number] [place] [address] 08463- 1368 Dec, Acute respiratory failure with hypoxia J96.01 and Chronic bronchitis, unspecified chronic bronchitis type J42 [facility] [id number] [place] [address] 99967- 2383 Dec, [facility] [address] [place] [address] [id number] Nov, Dental caries K02.9 and Dental examination Z01.20 [facility] [address] [address] 05 Nov, 2016 Major depressive disorder, recurrent, moderate F33.1 ; Anxiety disorder, unspecified F41.9 and 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 [facility] [address] [id number] Oct, Dental examination Z01.20 [facility] [id number] [place] [address] 91657- 0134 Oct, [facility] [id number] [place] [address] 51086- 4235 Oct, Diabetes E11.9 and Thrush B37.0 [facility] [id number] [place] [address] 11987- 6443 Oct, [facility] [id number] [place] [address] 45369- 4980 Oct, [facility] [id number] [place] [address] 22160- 5007 Oct, [facility] [id number] [place] [address] 03017- 4168 Sep, Major depressive disorder, recurrent, moderate F33.1 ; Anxiety disorder, unspecified F41.9 and Bipolar disorder, unspecified F31.9 [facility] [id number] [place] [address] 97968- 2442 Sep, Acute exacerbation of chronic obstructive pulmonary disease (COPD) J44.1 and Migraine G43.909 [facility] [id number] [place] [address] 15895- 7936 Sep, [facility] [place] [id number] [place] [address] [id number] Sep, [facility] [address] [place] [address] 52667- 4647 Sep, Acute exacerbation of chronic obstructive pulmonary disease (COPD) J44.1 [facility] [address] [place] [address] 25104 -1612 15 Sep, 2016 Acute exacerbation of chronic obstructive pulmonary disease (COPD) J44.1 [facility] [id number] [place] [address] 37050- 1607 29 Aug, 2016 [facility] [id number] [place] [address] 60776- 4264 20 Aug, 2016 Major depressive disorder, recurrent, moderate F33.1 ; Anxiety disorder, unspecified F41.9 and 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 [facility] [address] 85136- 0091 19 Aug, 2016 Wheezing R06.2 ; Non morbid obesity due to excess calories E66.09 ; Migraine without aura and without status migrainosus, not intractable G43.009 and Tobacco abuse Z72.0 [facility] [id number] [place] [address] [id number] 14 Aug, 2016 Encounter for dental examination Z01.20 [facility] [id number] [place] [address] 18999- 7671 02 Aug, 2016 Major depressive disorder, recurrent, moderate F33.1 ; Anxiety disorder, unspecified F41.9 and 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 [facility] [address] [place] [address] 16058- 1422 July, [facility] [id number] [place] [address] 19929- 7894 July, [facility] [id number] [place] [address] 34661- 0853 July, [facility] [id number] [place] [address] 62189- 2888 July, Diabetes E11.9 [facility] [id number] [place] [address] 64307- 7253 Jun, Major depressive disorder, recurrent, moderate F33.1 [facility] [id number] [place] [address] 44411- 9331 Jun, Major depressive disorder, recurrent, moderate F33.1 ; 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 ; Generalized anxiety disorder F41.1 and Bipolar disorder, unspecified F31.9 [facility] [id number] [place] [address] 14843- 7610 Jun, Diabetes E11.9 ; Migraine G43.909 ; Thrush B37.0 and Wheezing R06.2 [facility] [address] [id number] Jun, Dental examination Z01.20 [facility] [address] 64202- 3313 Jun, [facility] [address] 28087- 6387 Jun, Major depressive disorder, recurrent, moderate F33.1 ; Anxiety disorder, unspecified F41.9 and 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 [facility] [address] 85838- 6854 Jun, [facility] [id number] [place] [address] 39600- 6982 Jun, Wheezing R06.2 [facility] [address] [id number] Jun, Dental caries K02.9 [facility] [address] 36405- 6846 Jun, Major depressive disorder, recurrent, moderate F33.1 ; Anxiety disorder, unspecified F41.9 and 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 [facility] [address] 64467- 4342 Jun, RLQ abdominal pain R10.31 ; Diabetes E11.9 ; Obesity, unspecified obesity severity, unspecified obesity type E66.9 ; Wheezing R06.2 and Abnormal urinalysis R82.90 [facility] [id number] [place] [address] 80761- 7508 May, [facility] [id number] [place] [address] 96176- 0935 May, Well woman exam Z01.419 ; Breast cancer screening Z12.39 ; Cervical cancer screening Z12.4 ; Urinary frequency R35.0 ; Edema, unspecified type R60.9 and Chronic constipation K59.09 [facility] [id number] [place] [address] 61294- 3291 May, Major depressive disorder, recurrent, moderate F33.1 ; Anxiety disorder, unspecified F41.9 and 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 [facility] [id number] [place] [address] [id number] May, Dental examination Z01.20 [facility] [id number] [place] [address] 68224- 4192 May, [facility] [address] 72281- 2514 May, [facility] [id number] [place] [address] 99627- 4917 May, Chronic constipation K59.09 [facility] [id number] [place] [address] 38197- 4012 Apr, [facility] [id number] [place] [address] 24988- 0234 Apr, Major depressive disorder, recurrent, moderate F33.1 ; Anxiety disorder, unspecified F41.9 and 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 [facility] [id number] [place] [address] 91151- 2380 Apr, [facility] [id number] [place] [address] 57336- 3465 Mar, Major depressive disorder, recurrent, moderate F33.1 [facility] [id number] [place] [address] 50000- 2129 Mar, Major depressive disorder, recurrent, moderate F33.1 ; Generalized anxiety disorder F41.1 and Bipolar I disorder, most recent episode depressed with anxious distress F31.30 [facility] [id number] [place] [address] 49875- 7290 Mar, Diabetes E11.9 ; Non morbid obesity due to excess calories E66.09 ; Breast cancer screening Z12.39 and Encounter for immunization Z23 [id number] [place] [address] 50856- 7178 Mar, Major depressive disorder, recurrent, moderate F33.1 ; Anxiety disorder, unspecified F41.9 and 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 [facility] [id number] [place] [address] 74587- 4171 Mar, [facility] [id number] [place] [address] 55156- 7795 Feb, Major depressive disorder, recurrent, moderate F33.1 ; Anxiety disorder, unspecified F41.9 and 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 [facility] [id number] [place] [address] 05620- 6507 Feb, [facility] [id number] [place] [address] 07019- 6166 Feb, [facility] [id number] [place] [address] 23400- 5072 Jan, Major depressive disorder, recurrent, moderate F33.1 ; Generalized anxiety disorder F41.1 and Bipolar disorder, current episode depressed, severe, without psychotic features F31.4 [facility] [id number] [place] [address] 72307- 4574 Jan, Major depressive disorder, recurrent, moderate F33.1 ; Anxiety disorder, unspecified F41.9 and 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 [facility] [address], [place] [address]- 8890 Jan, Bronchitis J40 [facility] [address] [place] [address] 30180- 1737 Jan, [facility] [address] [place] [address] 16700- 8222 Jan, [facility] [address] [place] [address] 67367- 3884 Jan, Elbow injury, right, initial encounter S59.901A ; Multiple contusions T14.8 and Cervical strain, acute, initial encounter S16.1XXA [facility] [address] [place] [address] 32601- 8275 Dec, Major depressive disorder, recurrent, moderate F33.1 ; Generalized anxiety disorder F41.1 and Bipolar disorder with depression F31.30 [facility] [address] [place] [address] 71715- 8228 Dec, [facility] [id number] [place] [address] 83846- 6391 Dec, [facility] [address] [place] [address] 07819- 1015 Dec, [facility] [address] [place] [address] 79277- 1683 Dec, [facility] [address] [place] [address] 17756- 3625 Dec, Yeast infection B37.9 [facility] [address] [place] [address] 59105- 5743 Dec, Pneumonia of both lungs due to methicillin resistant Staphylococcus aureus (MRSA), unspecified part of lung J15.212 and Benzodiazepine overdose, accidental or unintentional, subsequent encounter T42.4X1D [facility] [address] [place] [address] 45565- 6844 Dec, [facility] [id number] [place] [address] 32087- 9934 Dec, [facility] [id number] [place] [address]- 4022 Dec, Knee pain, left M25.562 and Edema, unspecified type R60.9 [facility] [address] 669090- 9383 Dec, [facility] [id number] [place] [address] 60071- 0985 Dec, Anxiety disorder, unspecified F41.9 and Bipolar disorder, unspecified F31.9 [facility] [id number] [place] [address] 45691- 1429 Nov, Major depressive disorder, recurrent, moderate F33.1 ; Anxiety disorder, unspecified F41.9 and 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 [facility] [id number] [place] [address] 28335- 5050 Nov, [facility] [id number] [place] [address] 84709- 3878 Nov, Migraine without aura and without status migrainosus, not intractable G43.009 [facility] [id number] [place] [address] 44562- 2355 Nov, Migraine G43.909 [facility] [id number] [place] [address] 12252- 6410 Nov, [facility] [id number] [place] [address] 20886- 9817 Nov, Major depressive disorder, recurrent, moderate F33.1 ; Anxiety disorder, unspecified F41.9 and 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 [facility] [id number] [place] [address] 44127- 6669 Oct, Chronic constipation K59.09 and Obesity, unspecified obesity severity, unspecified obesity type E66.9 [facility] [id number] [place] [address] 46259- 0080 Oct, Obesity, unspecified obesity severity, unspecified obesity type E66.9 ; Chronic constipation K59.09 and Anxiety disorder, unspecified F41.9 [facility] [id number] [place] [address] 55492- 5129 Oct, [facility] [id number] [place] [address] 32548- 3313 Sep, Diabetes E11.9 ; Edema, unspecified type R60.9 ; Varicose vein of leg I83.90 and Obesity, unspecified obesity severity, unspecified obesity type E66.9 [facility] [id number] [place] [address] 26099- 0187 Sep, Edema, unspecified type R60.9 ; Diabetes E11.9 and Knee pain , left M25.562 [facility] [id number] [place] [address] 48904- 4093 Sep, [facility] [id number] [place] [address] 96147- 5089 Sep, [facility] [id number] [place] [address] 82139- 6494 Sep, Major depressive disorder, recurrent, moderate F33.1 ; Generalized anxiety disorder F41.1 and Bipolar disorder, unspecified F31.9 [facility] [id number] [place] [address] 62156- 9372 Aug, Chondromalacia of left knee M94.262 [facility] [id number] [place] [address] 96251- 7841 Aug, Major depressive disorder, recurrent, moderate F33.1 ; Anxiety disorder, unspecified F41.9 and 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 [facility] [id number] [place] [address] 70678- 4301 Aug, [facility] [address] [place] [address] 72053- 7822 Aug, Osteoarthritis of left knee M17.9 [facility] [id number] [place] [address] 50481- 5179 Aug, [facility] [id number] [place] [address] 05654- 9815 July, Major depressive disorder, recurrent, moderate F33.1 ; Anxiety disorder, unspecified F41.9 and 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 [facility] [id number] [place] [address] 59426- 1998 July, [facility] [id number] [place] [address] 92586- 4588 July, Chronic constipation K59.09 [facility] [id number] [place] [address] 11771- 8631 Jun, [facility] [id number] [place] [address] 03075- 0693 Jun, [facility] [id number] [place] [address] 33189- 4211 14 Jun, 2015 Osteoarthritis of left knee M17.9 [facility] [id number] [place] [address] 76975- 8909 Jun, [facility] [id number] [place] [address] 69578- 8465 Jun, Generalized anxiety disorder F41.1 ; Bipolar disorder, unspecified F31.9 and Major depressive disorder, recurrent, moderate F33.1 [facility] [id number] [place] [address] [place] [address] 88133- 0585 07 Jun, 2015 Migraine G43.909 [facility] [id number] [place] [address] 31027- 9786 07 Jun, 2015 Left knee pain M25.562 ; Chronic constipation K59.09 ; Dry mouth R68.2 ; Yeast vaginitis B37.3 and Memory loss R41.3 [facility] [id number] [place] [address] 90817- 6063 Jun, [facility] [id number] [place] [address] 88755- 2493 May, [facility] [address] 47061- 4497 May, [facility] [address] 14319- 5003 May, [facility] [address] 99568- 2216 May, [facility] [address] 30025- 3075 May, Acute bronchitis with COPD J44.0 ; Knee pain, left M25.562 and Encounter for tobacco use cessation counseling Z71.6 [facility] [id number] [place] [address] 44078- 6005 May, [facility] [id number] [place] [address] 49255- 3344 Apr, Diabetes E11.9 ; TMJ (sprain of temporomandibular joint) S03.4XXA ; Tobacco abuse Z72.0 ; Migraine G43.909 and Anxiety F41.9 [facility] [id number] [place] [address] 49257- 9858 Apr, Generalized anxiety disorder F41.1 and Bipolar disorder, unspecified F31.9 [facility] [id number] [place] [address] 48234- 5962 Apr, Major depressive disorder, recurrent, moderate F33.1 ; Anxiety disorder, unspecified F41.9 and 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 [facility] [address] 44985- 6321 Apr, [facility] [address] [address] 2595 Mar, [facility] [id number] [place] [address] 67156- 9942 Feb, [facility] [id number] [place] [address] 50449- 0081 Feb, Major depressive disorder, recurrent, moderate F33.1 ; Anxiety disorder, unspecified F41.9 and 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 [facility] [id number] [place] [address] 85594- 3935 Feb, [facility] [id number] [place] [address] 70984- 3655 Feb, Generalized anxiety disorder F41.1 and Bipolar disorder, unspecified F31.9 [facility] [id number] [place] [address] 16179- 4103 Jan, [facility] [id number] [place] [address] 18483- 7819 Jan, [facility] [id number] [place] [address] 65484- 7423 Jan, Bipolar disorder, unspecified F31.9 and Generalized anxiety disorder F41.1 [facility] [id number] [place] [address] 15479- 2035 Dec, [facility] [id number] [place] [address] 73978- 6563 Dec, Bipolar disorder, unspecified F31.9 and Generalized anxiety disorder F41.1 [facility] [id number] [place] [address] 24806- 8710 Dec, Generalized anxiety disorder F41.1 and Major depressive disorder, recurrent, moderate F33.1 [facility] [id number] [place] [address] 61738- 9901 Oct, Headache 784.0 ; Cough 786.2 ; Vomiting and diarrhea 787.03 and Dysuria 788.1 [facility] [id number] [place] [address] 16023- 6847 Aug, [facility] [id number] [place] [address] 28990- 8092 Aug, Headache 784.0 and Shortness of breath 786.05 [facility] [id number] [place] [address] 51651- 7553 Aug, [facility] [id number] [place] [address] 50516- 8034 Aug, Migraine 346.90 [facility] [id number] [place] [address] 69551- 6530 Jun, [facility] [id number] [place] [address] 70922- 3125 Jun, [facility] [id number] [place] [address] 67387- 9928 May, [facility] [id number] [place] [address] 86404- 8799 May, [facility] [id number] [place] [address] 00074- 3579 May, [facility] [address] [address]- 0270 May, [facility] [id number] [place] [address] 60957- 3352 May, [facility] [id number] [place] [address] 34483- 9378 May, [facility] [id number] [place] [address] 634152- 4666 Apr, [facility] [address] [address] 4411 Apr, [facility] [id number] [address]- 7147 04 Apr, 2014 [facility] [address] [id number] [place] [address]- 6243 Apr, 2014 [facility] [address] [id number] [place] 3011 Apr, 2014 [facility] [address] [id number] [place] [address]- 9197 Mar, [facility] [address] [id number] [place] [address]- 6577 Mar, [facility] [address] [id number] [place] [address]- 6103 Mar, [facility] [address] [id number] [place] [address]- 4603 Mar, [facility] [address] [id number] [place] [address]- 5066 Feb, [facility] [address] [id number] [place] [address]- 8743 19 Feb, 2014 [facility] [address] [id number] [place] [address]- 7332 18 Feb, 2014 [facility] [address] [facility] [id number] [place] [address]- 9418 18 Feb, 2014 [facility] [place] [facility] [address] [id number] [place] [address]- 9922 16 Feb, 2014 [facility] [place] [facility] [address] [id number] [place] [address]- 4812 16 Feb, 2014 [facility] [place] [facility] [address] [id number] [place] [address]- 3632 11 Feb, 2014 [facility] [place] [facility] [address] [id number] [place] [address]- 1830 11 Feb, 2014 [facility] [place] [facility] [address] [id number] [place] [address]- 9602 Feb, [facility] [place] [facility] [address] [id number] [place] [address]- 6964 Feb, [facility] [place] [facility] [address] [id number] [place] 5651 Feb, [facility] [place] [facility] [address] [id number] [place] [address]- 9132 Feb, [facility] [place] [facility] [address] [id number] [place] [address]- 5212 Jan, [facility] [place] [facility] [address] [id number] [place] [address]- 7441 Jan, [facility] [place] [facility] [address] [id number] [place] [address]- 0977 Dec, [facility] [place] [facility] [address] [id number] [place] [address]- 5802 Dec, [facility] [place] [facility] [address] [id number] [place] [address]- 5635 Dec, [facility] [place] [facility] [address] [id number] [place] [address]- 4863 Dec, [facility] [place] [facility] [address] [id number] [place] [address]- 1203 Dec, [facility] [place] [facility] [address] [id number] [place] [address]- 8242 Dec, [facility] [place] [facility] [address] [id number] [place] [address]- 2330 Sep, [facility] [place] [facility] [address] [id number] [place] [address]- 6770 Sep, [facility] [place] [facility] [address] [id number] [place] [address]- 3523 Sep, [facility] [place] [facility] [address] [id number] [place] [address]- 8109 Sep, [facility] [place] [facility] [address] [id number] [place] [address]- 3364 14 Sep, 2013 [facility] [place] [facility] [address] [id number] [place] [address]- 7070 14 Sep, 2013 [facility] [place] [facility] [address] [id number] [place] [address]- 7186 Sep, 2013 [facility] [place] [facility] [address] [id number] [place] [address]- 6192 Sep, 2013 [facility] [place] [facility] [address] [id number] [place] [address]- 5600 Sep, 2013 [facility] [place] [facility] [address] [id number] [place] [address]- 6071 Sep, [facility] [place] [facility] [address] [id number] [place] [address]- 5851 24 Aug, 2013 [facility] [place] [facility] [address] [id number] [place] [address]- 6860 Aug, [facility] [place] [facility] [address] [id number] [place] [address]- 4394 Aug, [facility] [place] [facility] [address] [id number] [place] [address]- 1679 Aug, [facility] [place] [facility] [address] [id number] [place] [address]- 8952 17 Aug, 2013 [facility] [place] [facility] [address] [id number] [place] [address]- 8537 Aug, [facility] [place] [facility] [address] [id number] [place] [address]- 6999 14 Aug, 2013 [facility] [place] [facility] [address] [id number] [place] [address]- 7187 Aug, [facility] [place] [facility] [address] [id number] [place] [address]- 5202 Aug, [facility] [place] [facility] [address] [id number] [place] [address]- 0065 05 Aug, 2013 [facility] [place] [facility] [address] [id number] [place] [address]- 6708 Aug, [facility] [place] [facility] [address] [id number] [place] [address]- 4640 Aug, [facility] [place] [facility] [address] [id number] [place] [address]- 1102 Aug, [facility] [place] [facility] [address] [id number] [place] [address]- 2388 July, [facility] [place] [facility] [address] [id number] [place] [address]- 5423 July, [facility] [place] [facility] [address] [id number] [place] [address]- 5183 July, [facility] [place] [facility] [address] [id number] [place] [address]- 2766 July, [facility] [place] [facility] [address] [id number] [place] [address]- 0509 July, [facility] [place] [facility] [address] [id number] [place] [address]- 4689 July, [facility] [place] [facility] [address] [id number] [place] [address]- 6484 July, [facility] [place] [facility] [address] [id number] [place] [address]- 1697 Jun, [facility] [place] [facility] [address] [id number] [place] [address]- 4917 Jun, [facility] [place] [facility] [address] [id number] [place] [address]- 0024 18 Jun, 2013 [facility] [place] [facility] [address] [id number] [place] [address]- 3977 Jun, [facility] [place] [facility] [address] [id number] [place] 5154 Jun, [facility] [place] [facility] [address] [id number] [place] [address]- 9374 Jun, [facility] [place] [facility] [address] [id number] [place] [address]- 8883 08 Jun, 2013 [facility] [place] [facility] [address] [id number] [place] [address]- 1557 17 May, 2013 [facility] [place] [facility] [address] [id number] [place] [address]- 4684 17 May, 2013 [facility] [place] [facility] [address] [id number] [place] [address]- 9016 14 May, 2013 [facility] [place] [facility] [address] [id number] [place] [address]- 4411 14 May, 2013 [facility] [place] [facility] [address] [id number] [place] [address]- 9483 13 May, 2013 [facility] [place] [facility] [address] [id number] [place] [address]- 5798 13 May, 2013 [facility] [place] [facility] [address] [id number] [place] [address]- 3369 10 May, 2013 [facility] [place] [facility] [address] [id number] [place] [address]- 2323 10 May, 2013 [facility] [place] [facility] [address] [id number] [place] [address]- 0636 07 May, 2013 [facility] [place] [facility] [address] [id number] [place] [address]- 9536 26 Apr, 2013 [facility] [place] [facility] [address] [id number] [place] [address]- 3747 Apr, [facility] [place] [facility] [address] [id number] [place] [address]- 7054 18 Apr, 2013 [facility] [place] [facility] [address] [id number] [place] [address]- 6300 15 Apr, 2013 [facility] [place] [facility] [address] [id number] [place] [address]- 9258 15 Apr, 2013 [facility] [place] [facility] [address] [id number] [place] [address]- 3062 Apr, [facility] [place] [facility] [address] [id number] [place] [address]- 3190 Apr, [facility] [place] [facility] [address] [id number] [place] [address]- 9326 Apr, [facility] [place] [facility] [address] [id number] [place] [address]- 4986 Apr, [facility] [place] [facility] [address] [id number] [place] [address]- 4615 Apr, [facility] [place] [facility] [address] [id number] [place] [address]- 1919 Mar, [facility] [place] [facility] [address] [id number] [place] [address]- 0822 Mar, [facility] [place] [facility] [address] [id number] [place] [address]- 9807 Mar, [facility] [place] [facility] [address] [id number] [place] [address]- 2304 Mar, [facility] [place] [facility] [address] [id number] [place] [address]- 6473 Mar, [facility] [place] [facility] [address] [facility] [id number] [place] [address]- 1393 Mar, [facility] [place] [facility] [address] [id number] [place] [address]- 1679 Mar, [facility] [place] [facility] [address] [id number] [place] [address]- 4176 Mar, [facility] [place] [facility] [address] [id number] [place] [address]- 8389 Feb, [facility] [place] [facility] [address] [id number] [place] [address]- 0834 Feb, [facility] [place] [facility] [address] [id number] [place] [address]- 7709 Jan, [facility] [place] [facility] [address] [id number] [place] [address]- 4063 18 Jan, 2013 [facility] [place] [facility] [address] [id number] [place] [address]- 3637 15 Jan, 2013 [facility] [place] [facility] [address] [id number] [place] [address]- 5594 15 Jan, 2013 [facility] [place] [facility] [address] [id number] [place] [address]- 0700 Jan, [facility] [place] [facility] [address] [id number] [place] [address]- 7896 Jan, [facility] [place] [facility] [address] [id number] [place] [address]- 7755 Jan, [facility] [place] [facility] [address] [id number] [place] [address]- 5366 Jan, [facility] [place] [facility] [address] [id number], [place] [address]- 8409 Dec, [facility] [place] [facility] [address] [id number], [place] [address]- 1283 10 Dec, 2012 [facility] [place] [facility] [address] [id number], [place] [address]- 5410 10 Dec, 2012 [facility] [place] [facility] [address] [id number], [place] [address]- 6539 20 Nov, 2012 [facility] [place] [facility] [address] [id number], [place] [address]- 7739 13 Nov, 2012 [facility] [place] [facility] [address] [id number], [place] [address]- 4409 12 Nov, 2012 [facility] [place] [facility] [address] [id number], [place] [address]- 5616 09 Sep2012 [facility] [place] [facility] [address] [id number], [place] [address]- 1860 06 Nov, 2012 [facility] [place] [facility] [address] [id number] [place] [address]- 4822 Nov, [facility] [address] [id number] [place] [address]- 9269 Oct, [facility] [place] [facility] [address] [id number] [place] [address]- 2455 Oct, [facility] [place] [facility] [address] [id number] [place] [address]- 8568 Sep, [facility] [place] [facility] [address] [id number] [place] [address]- 3549 Sep, [facility] [place] [facility] [address] [id number] [place] [address]- 7953 Sep, [facility] [place] [facility] [address] [id number] [place] [address]- 5426 Sep, [facility] [address] [id number] [place] [address]- 9673 Sep, [facility] [place] [facility] [address] [id number] [place] [address]- 5193 Sep, [facility] [place] [facility] [address] [id number] [place] [address]- 1313 Sep, [facility] [place] [facility] [address] [id number] [place] [address]- 1040 Aug, [facility] [place] [facility] [address] [id number] [place] [address]- 2300 14 Aug, 2012 [facility] [place] [facility] [address] [id number] [place] [address]- 6027 Aug, [facility] [place] [facility] [address] [id number] [place] [address]- 7414 Aug, [facility] [place] [facility] [address] [id number] [place] [address]- 5571 Aug, [facility] [place] [facility] [address] [id number] [place] [address]- 3434 Aug, [facility] [place] [facility] [address] [id number] [place] [address]- 2416 July, [facility] [address] [id number] [place] [address]- 4875 July, [facility] [address] [id number] [place] [address]- 1631 July, [facility] [address] [id number] [place] [address]- 4758 July, [facility] [address] [id number] [place] [address]- 9754 July, [facility] [address] [id number] [place] [address]- 9609 July, [facility] [address] [id number] [place] [address]- 2609 Jun, [facility] [address] [id number] [place] [address]- 7292 Jun, [facility] [address] [id number] [place] [address]- 2988 Jun, [facility] [address] [id number] [place] [address]- 6872 Jun, [facility] [address] [id number] [place] [address]- 0165 Jun, [facility] [address] [id number] [place] [address]- 4845 Jun, [facility] [address] [id number] [place] [address]- 7739 Jun, [facility] [address] [id number] [place] [address]- 4429 May, [facility] [address] [id number] [place] [address] May, [facility] [address] [id number] [place] [address] 26 Apr, 2012 [facility] [address] [id number] [place] [address] Apr, [facility] [address] [id number] [place] [address] 18 Apr, 2012 [facility] [address] [id number] [place] [address] 18 Apr, 2012 [facility] [address] [id number] [place] [address] 12 Apr, 2012 [facility] [address] [id number] [place] [address] 08 Apr, 2012 [facility] [address] [id number] [place] [address] 07 Apr, 2012 [facility] [address] [id number] [place] [address] 07 Apr, 2012 [facility] [address] [id number] [place] [address] 06 Apr, 2012 [facility] [address] [id number] [place] [address] 06 Apr, 2012 [facility] [address] [id number] [place] [address] Apr, [facility] [address] [id number] [place] [address] Mar, [facility] [address] [id number] [place] [address] Mar, [facility] [place] [facility] [address] [id number] [place] [address] Mar, [facility] [place] [facility] [address] [id number] [place] [address] Mar, [facility] [place] [facility] [address] [id number] [place] [address] Mar, [facility] [address] [id number] [place] [address] 15 Mar, 2012 [facility] [address] [id number] [place] [address] Mar, [facility] [address] [id number] [place] [address] 15 Mar, 2012 [facility] [place] [facility] [address] [id number] [place] [address] Mar, [facility] [address] [id number] [place] [address] Mar, [facility] [address] [id number] [place] [address] Mar, [facility] [address] [id number] [place] [address] Mar, [facility] [address] [id number] [place] [address] Mar, [facility] [address] [id number] [place] [address] Feb, [facility] [address] [id number] [place] [address] Feb, [facility] [place] [facility] [address] [id number], [place] [address] 18 Feb, 2012 [facility] [place] [facility] [address] [id number], [place] [address] 18 Feb, 2012 [facility] [place] [facility] [address] [id number] [place] [address] Feb, [facility] [place] [facility] [address] [id number] [place] [address] Feb, [facility] [place] [facility] [address] [id number], [place] [address] 10 Feb, 2012 [facility] [place] [facility] [address] [id number], [place] [address] Feb, [facility] [place] [facility] [address] [id number] [place] [address] Feb, [facility] [place] [facility] [address] [id number] [place] [address] Feb, [facility] [place] [facility] [address] [facility] [id number] [place] [address] Feb, [facility] [place] [facility] [address] [id number] [place] [address] Feb, [facility] [place] [facility] [address] [id number] [place] [address] Feb, [facility] [place] [facility] [address] [facility] [id number] [place] [address] Feb, [facility] [place] [facility] [address] [id number] [place] [address] Feb, [facility] [place] [facility] [address] [facility] [id number] [place] [address] Jan, [facility] [place] [facility] [address] [facility] [id number] [place] [address] Jan, [facility] [place] [facility] [address] [facility] [id number] [place] [address] Jan, [facility] [place] [facility] [address] [facility] [id number], [place] [address] Jan, [facility] [place] [facility] [address] [facility] [id number], [place] [address] Dec, [facility] [place] [facility] [address] [id number] [place] [address] Dec, [facility] [place] [facility] [address] [facility] [id number] [place] [address] Dec, [facility] [place] [facility] [address] [facility] [id number] [address] Dec, [facility] [place] [facility] [address] [id number] [place] [address] 25 Dec, 2011 [facility] [place] [facility] [address] [id number] [place] [address] 25 Dec, 2011 [facility] [place] [facility] [address] [id number] [place] [address] 16 Dec, 2011 [facility] [place] [facility] [address] [id number] [place] [address] 1626 16 Dec, 2011 [facility] [place] [facility] [address] [id number] [place] [address] 1192 07 Dec, 2011 [facility] [place] [facility] [address] [id number] [place] [address] 1606 04 Dec, 2011 [facility] [place] [facility] [address] [id number] [place] [address] 03 Dec, 2011 [facility] [place] [facility] [address] [id number] [place] [address] 8[address] 25 Sep, 2011 [facility] [place] [facility] [address] [id number] [place] [address] 6414 24 Sep, 2011 [facility] [place] [facility] [address] [id number] [place] [address] 2913 20 Sep, 2011 [facility] [place] [facility] [address] [id number] [place] [address] 2458 19 Sep, 2011 [facility] [place] [facility] [address] [id number] [place] [address] 2546 17 Sep, 2011 [facility] [place] [facility] [address] [id number] [place] [address] 2546 16 Sep, 2011 [facility] [place] [facility] [address] [id number] [place] [address] 2546 14 Sep, 2011 [facility] [place] [facility] [address] [id number] [place] [address]- 2546 13 Sep, 2011 [facility] [place] [facility] [address] [id number] [place] [address]- 2546 12 Sep, 2012 [facility] [place] [facility] [address] [id number] [place] [address] 8357 07 Sep, 2011 [facility] [place] [facility] [address] [id number] [place] [address] 7583 06 Nov, 2011 [facility] [place] [facility] [address] [id number] [place] [address] 7155 06 Nov, 2011 [facility] [place] [facility] [address] [id number] [place] [address]- 7252 05 Nov, 2011 [facility] [place] [facility] [address] [id number] [place] [address] 5312 Oct, [facility] [place] [facility] [address] [id number] [place] [address] 0[address] Oct, [facility] [place] [facility] [address] [id number] [place] [address] 2996 Oct, [facility] [place] [facility] [address] [id number] [place] [address] 68[address] Oct, [facility] [place] [facility] [address] [id number] [place] [address]- 7865 Oct, [facility] [place] [facility] [address] [id number] [place] [address] 0540 Oct, [facility] [place] [facility] [address] [id number] [place] [address]- 0726 Oct, [facility] [place] [facility] [address] [id number] [place] [address] 5998 16 Oct, 2011 [facility] [place] [facility] [address] [id number] [place] [address]- 0355 15 Oct, 2011 [facility] [place] [facility] [address] [id number] [place] [address] 9987 13 Oct, 2011 [facility] [place] [facility] [address] [id number] [place] [address] 2258 08 Oct, 2011 [facility] [place] [facility] [address] [id number] [place] [address] 2771 Sep, [facility] [address] [id number] [place] [address] 3825 Sep, [facility] [place] [facility] [address] [id number] [place] [address] 0276 Sep, [facility] [place] [facility] [address] [id number] [place] [address] 1006 Sep, [facility] [place] [facility] [address] [id number] [place] [address] 4364 Sep, [facility] [place] [facility] [address] [id number] [place] [address]- 1060 Sep, [facility] [place] [facility] [address] [id number] [place] [address] 8339 Aug, [facility] [address] [id number] [place] [address] 7788 July, [facility] [place] [facility] [address] [id number] [place] [address] 5675 July, [facility] [place] [facility] [address] [id number] [place] [address] 3757 Jun, [facility] [place] [facility] [address] [id number] [place] [address]- 7968 Jun, [facility] [place] [facility] [address] [id number] [place] [address]- 8523 Jun, [facility] [place] [facility] [address] [id number] [place] [address]- 9977 Jun, [facility] [place] [facility] [address] [id number] [place] [address]- 4771 Jun, [facility] [place] [facility] [address] [id number] [place] [address]- 6677 Jun, [facility] [place] [facility] [address] [id number] [place] [address]- 2206 Jun, [facility] [place] [facility] [address] [id number] [place] [address]- 8236 08 Jun, 2011 [facility] [place] [facility] [address] [id number] [place] [address]- 0986 Jun, [facility] [place] [facility] [address] [id number] [place] [address]- 9726 Jun, [facility] [place] [facility] [address] [id number] [place] [address]- 3759 Jun, [facility] [place] [facility] [address] [id number] [place] [address] 1983 19 May, 2011 [facility] [place] [facility] [address] [id number] [place] [address]- 4200 16 May, 2011 [facility] [place] [facility] [address] [id number] [place] [address]- 2057 14 May, 2011 [facility] [place] [facility] [address] [id number] [place] [address]- 7832 06 May, 2011 [facility] [place] [facility] [address] [id number] [place] [address] 1832 Apr, [facility] [place] [facility] [address] [id number] [place] [address]- 7778 28 Apr, 2011 [facility] [place] [facility] [address] [id number] [place] [address]- 9480 Apr, [facility] [place] [facility] [address] [id number] [place] [address]- 1482 Apr, [facility] [place] [facility] [address] [id number] [place] [address]- 0977 Apr, [facility] [place] [facility] [address] [id number] [place] [address]- 1043 Apr, [facility] [place] [facility] [address] [id number] [place] [address]- 6335 Apr, [facility] [place] [facility] [address] [id number] [place] [address]- 7411 Apr, [facility] [address] [id number] [place] [address]- 6653 Mar, [facility] [place] [facility] [address] [id number] [place] [address]- 8063 Mar, [facility] [address] [id number] [place] [address]- 8102 Mar, [facility] [place] [facility] [address] [id number] [place] [address]- 2025 Mar, [facility] [address] [id number] [place] [address]- 1660 Mar, [facility] [address] [id number] [place] [address]- 2422 Mar, [facility] [address] [id number] [place] [address]- 8322 Mar, [facility] [address] [id number] [place] [address]- 0071 Mar, [facility] [address] [id number] [place] [address]- 0069 Mar, [facility] [address] [id number] [place] [address]- 4877 Mar, [facility] [address] [id number] [place] [address]- 6483 Mar, [facility] [place] [facility] [address] [id number] [place] [address]- 7210 Mar, [facility] [place] [facility] [address] [id number] [place] [address]- 0954 Mar, [facility] [place] [facility] [address] [id number] [place] [address]- 0538 Mar, [facility] [place] [facility] [address] [id number] [place] [address]- 5910 Mar, [facility] [place] [facility] [address] [id number] [place] [address]- 7173 Mar, [facility] [place] [facility] [address] [id number] [place] [address]- 3381 Feb, [facility] [place] [facility] [address] [id number] [place] [address]- 1991 Feb, [facility] [place] [facility] [address] [id number] [place] [address]- 4365 Feb, [facility] [place] [facility] [address] [id number] [place] [address]- 6863 Jan, [facility] [place] [facility] [address] [id number] [place] [address]- 1463 Jan, [facility] [place] [facility] [address] [id number] [place] [address]- 2339 Jan, [facility] [place] [facility] [address] [id number] [place] [address]- 8442 Dec, [facility] [place] [facility] [address] [id number] [place] [address]- 9866 Dec, [facility] [place] [facility] [address] [id number] [place] [address]- 8268 Nov, [facility] [place] [facility] [address] [id number] [place] [address]- 0503 Oct, [facility] [place] [facility] [address] [id number] [place] [address]- 0727 Oct, [facility] [place] [facility] [address] [id number] [place] [address]- 8243 Oct, [facility] [place] [facility] [address] [id number] [place] [address]- 8016 Sep, [facility] [place] [facility] [address] [id number] [place] [address]- 1668 Apr, [facility] [place] [facility] [address] [id number] [place] [address] 2546 Feb, [facility] [address] [facility] [id number] [place] [address] 2546 Jan, IMMUNIZATIONS No Known Immunizations SOCIAL HISTORY Never Assessed REASON FOR VISIT Phone call PLAN OF CARE VITAL SIGNS MEDICATIONS Medication Instructions Dosage Frequency Start Date End Date Duration Status PredniSONE 20 mg Orally 2 tab twice daily x3day,2 in am 1 in pm x3days, 1 twice daily x3d, 1 daily x3 days, then 1/2 tab daily for 4 days .... 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 Hospitalization History for COPD x2 Mar 2017 Hospitalization History Upper GI bleed at [facility] 2017
--- OUTSIDE RECORDS SUMMARY | 2017-08-04 18:21 | XMS REPORT ---
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 Active Problem Thrush B37.0 Active 20803548 Problem TMJ (sprain of temporomandibular joint) S03.4XXA Active 97969443 Problem Tobacco abuse Z72.0 Active 34111328 Problem Non morbid obesity due to excess calories E66.09 Active 252524042 Problem Migraine G43.909 Active 86527810 Problem History of MRSA infection Z86.14 Active 771304058 Problem Knee pain, left M25.562 Active 68670782 Problem Obesity, unspecified obesity severity, unspecified obesity type E66.9 Active 109092985 Problem Migraine without aura and without status migrainosus, not intractable G43.009 Active 694331389 Problem Other emphysema J43.8 Active 78978823 Problem Chronic obstructive pulmonary disease with acute exacerbation J44.1 Active 404078522 Problem Intractable cyclical vomiting with nausea G43.A1 Active 45884809 Problem Chronic constipation K59.09 Active 784612391 Problem Acute bronchitis with COPD J44.0 Active 856593403216854 Problem Encounter for tobacco use cessation counseling Z71.6 Active 167897966 Problem Methamphetamine use disorder, moderate, 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 Active 22810039 Problem Chronic bronchitis, unspecified chronic bronchitis type J42 Active 52726665 Problem Viral illness B34.9 Active 86210297 Problem Diabetes E11.9 Active 934923506 Problem Memory loss R41.3 Active 87713432 Problem Left knee pain M25.562 Active 94040575 Problem Dry mouth R68.2 Active 88534739 Problem Yeast vaginitis B37.3 Active 77202813 Problem Generalized anxiety disorder F41.1 Active 37578611 Problem Bipolar disorder with depression F31.30 Active 13430942 Problem Bipolar disorder, unspecified F31.9 Active 99309959 Problem Bipolar disorder, current episode depressed, severe, without psychotic features F31.4 Active 39639354 ALLERGIES Substance Reaction Event Type Date Status Buspar 10 Mg Tablet made legs shaky Non Drug Allergy Oct, Active Benzodiazepines NARC ALERT Broke narc contract Non Drug Allergy Oct Active Narcotic NARC ALERT Broke Narc contract Non Drug Allergy Oct, Active ENCOUNTERS Encounter Location Date Diagnosis [facility] [address] [address] July, [facility] [address] [address] Jun, Chronic obstructive pulmonary disease with acute exacerbation J44.1 ; Diabetes E11.9 and Tobacco abuse Z72.0 [facility] [address] [address] Jun, [facility] [address] [address] 6259 Jun, [facility] [address] [address] May, [facility] [address] 17[address] 6[address] 19 May, 2017 [facility] [id number] [place] [address]54 -7628 17 May, 2017 [facility] [address] [address] 9581 16 May, 2017 [facility] [address] [address]- [address] 15 May, 2017 [facility] [address] 0[address]- 67[address] May, Diarrhea, unspecified type R19.7 and Intractable cyclical vomiting with nausea G43.A1 [facility] [id number] [place] [address] 07516- 0153 May, [facility] [address] [address] 05 May, 2017 [facility] [address] [address] 28 Apr, 2017 COPD exacerbation J44.1 ; Esophageal candidiasis B37.81 ; Other acute gastritis with hemorrhage K29.01 and Acute posthemorrhagic anemia D62 [place] [address] [address]47- 7080 Apr, Viral illness B34.9 and COPD exacerbation J44.1 [facility] [address] [address] Apr, Shortness of breath R06.02 and Pneumonia of both lower lobes due to infectious organism J18.9 [facility] [address] [address] Mar, COPD with acute exacerbation J44.1 [place] [address] [address]- 655[address] Mar, Chronic obstructive pulmonary disease with acute exacerbation J44.1 and Diabetes E11.9 [facility] [id number] [place] [address] 64794- 9857 Mar, [facility] [id number] [place] [address] 10870- 9818 Mar, [facility] [address] [address] Mar, COPD exacerbation J44.1 [facility] [address] 6[address]- 20[address] 09 Mar, 2017 [facility] [address] 29556- 69[address] Mar, Migraine G43.909 ; Hypokalemia E87.6 and Type 2 diabetes mellitus without complications E11.9 [place] [id number] [place] [address] 49979- 5120 Feb, [place] [id number] [place] [address] 89634- 4799 Feb, [place] [id number] [place] [address] 25420- 3042 Feb, Methamphetamine use disorder, moderate, 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 ; Major depressive disorder, recurrent, moderate F33.1 ; Anxiety disorder, unspecified F41.9 and Tobacco abuse Z72.0 [place] [id number] [place] [address] 61303- 8390 Jan, Major depressive disorder, recurrent, moderate F33.1 [place] [id number] [place] [address] 43520- 6663 Jan, [place] [id number] [place] [address] 48780- 8916 Jan, [place] [id number] [place] [address] 39486- 6127 Jan, Major depressive disorder, recurrent, moderate F33.1 [place] [id number] [place] [address] 38993- 1376 Jan, Major depressive disorder, recurrent, moderate F33.1 ; Anxiety disorder, unspecified F41.9 ; Methamphetamine use disorder, moderate, 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 and Tobacco abuse Z72.0 [place] [id number] [place] [address] 26241- 2659 07 Jan, 2017 [place] [id number] [place] [address] 37199- 2222 06 Jan, 2017 Chronic obstructive pulmonary disease with acute exacerbation J44.1 and Diabetes E11.9 [place] [id number] [place] [address] 89654- 2263 Jan, [facility] [id number] [place] [address] 59069- 8494 Jan, [facility] [id number] [place] [address] 63908- 9813 Dec, Acute respiratory failure with hypoxia J96.01 and Chronic bronchitis, unspecified chronic bronchitis type J42 [facility] [id number] [place] [address] 02143- 4465 Dec, [facility] [id number] [place] [address] [id number] Nov, Dental caries K02.9 and Dental examination Z01.20 [facility] [id number] [place] [address] 38598- 0278 Nov, Major depressive disorder, recurrent, moderate F33.1 ; Anxiety disorder, unspecified F41.9 and 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 [facility] [id number] [place] [address] [id number] Oct, Dental examination Z01.20 [facility] [id number] [place] [address] 10549- 5210 Oct, [facility] [id number] [place] [address] 01725- 1472 Oct, Diabetes E11.9 and Thrush B37.0 [facility] [id number] [place] [address] 27023- 3470 Oct, [facility] [id number] [place] [address] 77631- 1959 Oct, [facility] [id number] [place] [address] 93270- 4208 Oct, [facility] [id number] [place] [address] 52794- 8103 Sep, Major depressive disorder, recurrent, moderate F33.1 ; Anxiety disorder, unspecified F41.9 and Bipolar disorder, unspecified F31.9 [facility] [address] [address] Sep, Acute exacerbation of chronic obstructive pulmonary disease (COPD) J44.1 and Migraine G43.909 [facility] [address] [address] Sep, [facility] [id number] [place] [address] [id number] Sep, [facility] [id number] [place] [address] 87866- 3257 Sep, Acute exacerbation of chronic obstructive pulmonary disease (COPD) J44.1 [facility] [id number] [place] [address] 68310 -9452 Sep, Acute exacerbation of chronic obstructive pulmonary disease (COPD) J44.1 [facility] [id number] [place] [address] 42026- 3964 Aug, [facility] [id number] [place] [address] 13987- 8151 Aug, Major depressive disorder, recurrent, moderate F33.1 ; Anxiety disorder, unspecified F41.9 and 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 [facility] [id number] [place] [address] 94113- 3958 Aug, Wheezing R06.2 ; Non morbid obesity due to excess calories E66.09 ; Migraine without aura and without status migrainosus, not intractable G43.009 and Tobacco abuse Z72.0 [facility] [id number] [place] [address] [id number] 14 Aug, 2016 Encounter for dental examination Z01.20 [facility] [id number] [place] [address] 25187- 1679 02 Aug, 2016 Major depressive disorder, recurrent, moderate F33.1 ; Anxiety disorder, unspecified F41.9 and 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 [facility] [address] [address]- 6768 July, [facility] [id number] [place] [address] 81369- 8990 July, [facility] [id number] [place] [address] 06747- 2147 July, [facility] [id number] [place] [address] 19065- 9492 July, Diabetes E11.9 [facility] [id number] [place] [address] 75891- 4088 Jun, Major depressive disorder, recurrent, moderate F33.1 [place] [id number] [place] [address] 22169- 6315 Jun, Major depressive disorder, recurrent, moderate F33.1 ; 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 ; Generalized anxiety disorder F41.1 and Bipolar disorder, unspecified F31.9 [facility] [id number] [place] [address] 47440- 2024 Jun, Diabetes E11.9 ; Migraine G43.909 ; Thrush B37.0 and Wheezing R06.2 [facility] [id number] [place] [address] [phone] Jun, Dental examination Z01.20 [facility] [id number] [place] [address] 80918- 6698 Jun, [facility] [id number] [place] [address] 89366- 0112 Jun, Major depressive disorder, recurrent, moderate F33.1 ; Anxiety disorder, unspecified F41.9 and 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 [facility] [id number] [place] [address] 11307- 0753 Jun, [facility] [id number] [place] [address] 45664- 0977 Jun, Wheezing R06.2 [facility] [id number] [place] [address] [id number] Jun, Dental caries K02.9 [place] [address] [address]206- 2703 Jun, Major depressive disorder, recurrent, moderate F33.1 ; Anxiety disorder, unspecified F41.9 and 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 [place] [address] 7[address]209- 9238 Jun, RLQ abdominal pain R10.31 ; Diabetes E11.9 ; Obesity, unspecified obesity severity, unspecified obesity type E66.9 ; Wheezing R06.2 and Abnormal urinalysis R82.[address] [address]- [address] May, [place] [address] [address]- [address] May, Well woman exam Z01.419 ; Breast cancer screening Z12.39 ; Cervical cancer screening Z12.4 ; Urinary frequency R35.0 ; Edema, unspecified type R60.9 and Chronic constipation K59.09 [place] [id number] [place] [address] 22773- 4056 May, Major depressive disorder, recurrent, moderate F33.1 ; Anxiety disorder, unspecified F41.9 and 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 [facility] [id number] [place] [address] [id number] May, Dental examination Z01.20 [place] [address] 609[address]- 9631 May, [place] [address] 82852- 2481 May, [place] [address] 32986- 9755 02 Mar, 2017 Chronic constipation K59.09 [place] [address] [address]- 4621 Apr, [place] [id number] [place] [address] 91928- 2470 Apr, Major depressive disorder, recurrent, moderate F33.1 ; Anxiety disorder, unspecified F41.9 and 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 [place] [id number] [place] [address] 97774- 4125 Apr, [place] [id number] [place] [address] 23464- 7476 Mar, Major depressive disorder, recurrent, moderate F33.1 [place] [id number] [place] [address] 74209- 1433 Mar, Major depressive disorder, recurrent, moderate F33.1 ; Generalized anxiety disorder F41.1 and Bipolar I disorder, most recent episode depressed with anxious distress F31.30 [place] [id number] [place] [address] 56175- 9370 Mar, Diabetes E11.9 ; Non morbid obesity due to excess calories E66.09 ; Breast cancer screening Z12.39 and Encounter for immunization Z23 [place] [id number] [place] [address] 71614- 9561 Mar, Major depressive disorder, recurrent, moderate F33.1 ; Anxiety disorder, unspecified F41.9 and 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 [place] [id number] [place] [address] 29922- 0925 Mar, [place] [id number] [place] [address] 92401- 8079 Feb, Major depressive disorder, recurrent, moderate F33.1 ; Anxiety disorder, unspecified F41.9 and 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 [place] [id number] [place] [address] 50747- 8817 Feb, [facility] [id number] [place] [address] 96167- 7520 Feb, [facility] [id number] [place] [address] 57941- 8565 Jan, Major depressive disorder, recurrent, moderate F33.1 ; Generalized anxiety disorder F41.1 and Bipolar disorder, current episode depressed, severe, without psychotic features F31.4 [facility] [id number] [place] [address] 13707- 9197 Jan, Major depressive disorder, recurrent, moderate F33.1 ; Anxiety disorder, unspecified F41.9 and 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 [facility] [id number] [place] [address] 65591- 5507 16 Jan, 2016 Bronchitis J40 [place] [id number] [place] [address] 08322- 7614 Jan, [facility] [id number] [place] [address] 96922- 0972 Jan, [facility] [id number] [place] [address] 17207- 3468 Jan, Elbow injury, right, initial encounter S59.901A ; Multiple contusions T14.8 and Cervical strain, acute, initial encounter S16.1XXA [facility] [id number] [place] [address] 56381- 8484 Dec, Major depressive disorder, recurrent, moderate F33.1 ; Generalized anxiety disorder F41.1 and Bipolar disorder with depression F31.30 [facility] [id number] [place] [address] 73417- 4433 Dec, [facility] [id number] [place] [address] 30254- 3605 Dec, [facility] [id number] [place] [address] 59833- 2583 Dec, [place] [id number] [address]- 5197 Dec, [facility] [address] [place] [address] 67216- 1553 Dec, Yeast infection B37.9 [facility] [address], [place] [address]- 4472 Dec, Pneumonia of both lungs due to methicillin resistant Staphylococcus aureus (MRSA), unspecified part of lung J15.212 and Benzodiazepine overdose, accidental or unintentional, subsequent encounter T42.4X1D [facility] [address], [place] [address]- 1746 Dec, [place] [address] [place] [address] 00763- 5902 Dec, [place] [id number] [place] [address] 78039- 0913 Dec, Knee pain, left M25.562 and Edema, unspecified type R60.9 [facility] [address], [place] [address]- 8685 Dec, [facility] [id number] [place] [address] 99871- 8730 Dec, Anxiety disorder, unspecified F41.9 and Bipolar disorder, unspecified F31.9 [place] [id number] [place] [address] 15185- 6178 Nov, Major depressive disorder, recurrent, moderate F33.1 ; Anxiety disorder, unspecified F41.9 and 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 [facility] [id number] [place] [address] 77222- 1467 Nov, [facility] [id number] [place] [address] 07291- 5793 Nov, Migraine without aura and without status migrainosus, not intractable G43.009 [place] [id number] [place] [address] 55247- 9297 Nov, Migraine G43.909 [place] [id number] [place] [address] 88741- 9818 Nov, [place] [id number] [place] [address] 18271- 2678 Nov, Major depressive disorder, recurrent, moderate F33.1 ; Anxiety disorder, unspecified F41.9 and 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 [place] [id number] [place] [address] 75619- 5111 Oct, Chronic constipation K59.09 and Obesity, unspecified obesity severity, unspecified obesity type E66.9 [place] [id number] [place] [address] 93959- 7234 Oct, Obesity, unspecified obesity severity, unspecified obesity type E66.9 ; Chronic constipation K59.09 and Anxiety disorder, unspecified F41.9 [place] [id number] [place] [address] 94891- 5175 Oct, [place] [id number] [place] [address] 39199- 8568 Sep, Diabetes E11.9 ; Edema, unspecified type R60.9 ; Varicose vein of leg I83.90 and Obesity, unspecified obesity severity, unspecified obesity type E66.9 [place] [id number] [place] [address] 90236- 3549 Sep, Edema, unspecified type R60.9 ; Diabetes E11.9 and Knee pain , left M25.562 [place] [id number] [place] [address] 71662- 6809 Sep, [place] [id number] [place] [address] 19802- 6164 Sep, [place] [id number] [place] [address] 84820- 2501 Sep, Major depressive disorder, recurrent, moderate F33.1 ; Generalized anxiety disorder F41.1 and Bipolar disorder, unspecified F31.9 [facility] [id number] [place] [address] 25657- 4700 30 Aug, 2015 Chondromalacia of left knee M94.262 [facility] [id number] [place] [address] 86643- 4701 24 Aug, 2015 Major depressive disorder, recurrent, moderate F33.1 ; Anxiety disorder, unspecified F41.9 and 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 [facility] [id number] [place] [address] 58384- 9173 Aug, [facility] [id number] [place] [address] 43740- 9588 Aug, Osteoarthritis of left knee M17.9 [facility] [id number] [place] [address] 92684- 9861 Aug, [facility] [id number] [place] [address] 75566- 5995 July, Major depressive disorder, recurrent, moderate F33.1 ; Anxiety disorder, unspecified F41.9 and 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 [facility] [id number] [place] [address] 98289- 3417 July, [facility] [id number] [place] [address] 55619- 1284 July, Chronic constipation K59.09 [facility] [id number] [place] [address] 47952- 5715 Jun, [facility] [id number] [place] [address] 83635- 0815 Jun, [facility] [id number] [place] [address] 54289- 9424 14 Jun, 2015 Osteoarthritis of left knee M17.9 [facility] [id number] [place] [address] 30303- 6626 Jun, [place] [id number] [place] [address] 16329- 6641 Jun, Generalized anxiety disorder F41.1 ; Bipolar disorder, unspecified F31.9 and Major depressive disorder, recurrent, moderate F33.1 [place] [id number] [place] [address] [phone] Jun, Migraine G43.909 [place] [id number] [place] [address] [phone] Jun, Left knee pain M25.562 ; Chronic constipation K59.09 ; Dry mouth R68.2 ; Yeast vaginitis B37.3 and Memory loss R41.3 [place] [address] [address] [place] [id number] [place] [address] 92346- 2843 Jun, [place] [address] 7[address]- 8312 May, [place] [address] [place] [id number] [place] [address] 25051- 3352 May, [place] [address] 33501- 4896 May, [place] [address] [place] [id number] [place] [address] 81136- 9116 May, [place] [address] 56990- 9800 May, Acute bronchitis with COPD J44.0 ; Knee pain, left M25.562 and Encounter for tobacco use cessation counseling Z71.6 [place] [address] 97868- 1916 May, [place] [address] [place] [id number] [place] [address] 21881- 4819 24 Apr, 2015 Diabetes E11.9 ; TMJ (sprain of temporomandibular joint) S03.4XXA ; Tobacco abuse Z72.0 ; Migraine G43.909 and Anxiety F41.9 [facility] [id number] [place] [address] 16967- 6270 Apr, Generalized anxiety disorder F41.1 and Bipolar disorder, unspecified F31.9 [facility] [id number] [place] [address] 28818- 9417 Apr, Major depressive disorder, recurrent, moderate F33.1 ; Anxiety disorder, unspecified F41.9 and 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 [facility] [id number] [place] [address] 30016- 8424 Apr, [facility] [id number] [place] [address] 51166- 6840 Mar, [facility] [id number] [place] [address] 03936- 2398 Feb, [facility] [id number] [place] [address] 56026- 2767 Feb, Major depressive disorder, recurrent, moderate F33.1 ; Anxiety disorder, unspecified F41.9 and 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 [facility] [id number] [place] [address] 96960- 7323 Feb, [facility] [id number] [place] [address] 69154- 3481 Feb, Generalized anxiety disorder F41.1 and Bipolar disorder, unspecified F31.9 [facility] [id number] [place] [address] 61768- 5782 Jan, [facility] [id number] [place] [address] 71265- 7698 Jan, [facility] [id number] [place] [address] 93909- 5319 13 Jan, 2015 Bipolar disorder, unspecified F31.9 and Generalized anxiety disorder F41.1 [facility] [id number] [place] [address] 65917- 8875 14 Dec, 2014 [facility] [address] 84789- 2669 Dec, Bipolar disorder, unspecified F31.9 and Generalized anxiety disorder F41.1 [facility] [id number] [place] [address] 39433- 1456 Dec, Generalized anxiety disorder F41.1 and Major depressive disorder, recurrent, moderate F33.1 [facility] [id number] [place] [address] 02885- 5853 Oct, Headache 784.0 ; Cough 786.2 ; Vomiting and diarrhea 787.03 and Dysuria 788.1 [facility] [address] [place] [id number] [place] [address] 61681- 7268 Aug, [facility] [address] 61618- 8857 Aug, Headache 784.0 and Shortness of breath 786.05 [facility] [id number] [place] [address] 21604- 8036 Aug, [facility] [address] [place] [id number] [place] [address] 75142- 1924 Aug, Migraine 346.90 [facility] [id number] [place] [address] 03225- 3389 14 Jun, 2014 [facility] [id number] [place] [address] 51080- 2693 Jun, [facility] [id number] [place] [address] 20653- 8423 May, [facility] [id number] [place] [address] 74826- 5576 May, [facility] [id number] [place] [address] 90112- 6104 May, [facility] [address] [place] [address]- 7077 12 May, 2014 [facility] [place] [facility] [address] [id number] [place] [address]- 4548 May, 2014 [facility] [place] [facility] [address] [id number] [place] [address]- 7417 May, 2014 [facility] [place] [facility] [address] [id number] [place] [address]- 5928 Apr, 2014 [facility] [place] [facility] [address] [id number] [place] [address]- 3756 Apr, 2014 [facility] [place] [facility] [address] [id number] [place] [address]- 0836 Apr, 2014 [facility] [place] [facility] [address] [facility] [id number] [place] [address]- 6982 Apr, 2014 [facility] [place] [facility] [address] [facility] [id number] [place] [address]- 2990 Apr, [facility] [place] [facility] [address] [id number] [place] [address]- 5952 Mar, [facility] [place] [facility] [address] [facility] [id number] [place] [address]- 1543 Mar, [facility] [place] [facility] [address] [facility] [id number] [place] [address]- 1588 Mar, [facility] [place] [facility] [address] [id number] [place] [address]- 0096 Mar, [facility] [place] [facility] [address] [id number] [place] [address]- 0521 Feb, [facility] [place] [facility] [address] [id number] [place] [address]- 5472 Feb, [facility] [place] [facility] [address] [facility] [id number] [place] [address]- 4364 Feb, [facility] [place] [facility] [address] [facility] [id number] [place] [address]- 1742 Feb, [facility] [place] [facility] [address] [id number] [place] [address]- 2571 Feb, [facility] [place] [facility] [address] [id number] [place] [address]- 6063 Feb, [facility] [place] [facility] [address] [id number] [place] [address]- 3806 Feb, [facility] [place] [facility] [address] [id number] [place] [address]- 1923 Feb, [facility] [place] [facility] [address] [id number] [place] [address]- 5218 Feb, [facility] [place] [facility] [address] [id number] [place] [address]- 4884 Feb, [facility] [place] [facility] [address] [id number] [place] [address]- 3954 Feb, [facility] [place] [facility] [address] [id number] [place] [address]- 0405 Feb, [facility] [place] [facility] [address] [id number] [place] [address]- 5093 Jan, [facility] [place] [facility] [address] [id number] [place] [address]- 4972 Jan, [facility] [place] [facility] [address] [id number], [place] [address]- 4647 Dec, [facility] [place] [facility] [address] [id number], [place] [address]- 8914 Dec, [facility] [place] [facility] [address] [id number] [place] [address]- 4680 Dec, [facility] [place] [facility] [address] [id number] [place] [address]- 5441 Dec, [facility] [place] [facility] [address] [id number] 0394 Dec, [facility] [place] [facility] [address] [id number], [place] [address]- 6735 Dec, [facility] [place] [facility] [address] [id number] [place] [address]- 6691 Sep, [facility] [place] [facility] [address] [id number] [place] [address]- 8449 Sep, [facility] [place] [facility] [address] [id number] [place] [address]- 7147 Sep, [facility] [place] [facility] [address] [id number] [place] [address]- 8435 Sep, [facility] [place] [facility] [address] [id number] [place] [address]- 2671 Sep, [facility] [place] [facility] [address] [id number] [place] [address]- 6737 Sep, [facility] [place] [facility] [address] [id number] [place] [address]- 0768 Sep, [facility] [place] [facility] [address] [id number] [place] [address]- 2484 Sep, [facility] [place] [facility] [address] [id number] [place] [address]- 2194 Sep, [facility] [place] [facility] [address] [id number] [place] [address]- 2881 Sep, [facility] [place] [facility] [address] [id number] [place] [address]- 1624 Aug, [facility] [place] [facility] [address] [id number] [place] [address]- 8264 Aug, [facility] [place] [facility] [address] [id number] [place] [address]- 7892 Aug, [facility] [place] [facility] [address] [id number] [place] [address]- 9054 Aug, [facility] [place] [facility] [address] [id number] [place] [address]- 4804 Aug, [facility] [place] [facility] [address] [id number] [place] [address]- 6967 Aug, [facility] [place] [facility] [address] [id number] [place] [address]- 4548 Aug, [facility] [place] [facility] [address] [id number] [place] [address]- 3747 Aug, [facility] [place] [facility] [address] [id number] [place] [address]- 7499 Aug, [facility] [place] [facility] [address] [id number] [place] [address]- 6349 Aug, [facility] [place] [facility] [address] [id number] [place] [address]- 9587 Aug, [facility] [place] [facility] [address] [id number] [place] [address]- 2100 Aug, [facility] [place] [facility] [address] [id number] [place] [address]- 7323 Aug, [facility] [place] [facility] [address] [id number] [place] [address]- 7991 July, [facility] [place] [facility] [address] [id number] [place] [address]- 6957 July, [facility] [place] [facility] [address] [id number] [place] [address]- 7614 July, [facility] [place] [facility] [address] [id number] [place] [address]- 5791 July, [facility] [place] [facility] [address] [id number] [place] [address]- 3310 July, [facility] [place] [facility] [address] [id number] [place] [address]- 7839 July, [facility] [place] [facility] [address] [id number] [place] [address]- 4724 July, [facility] [place] [facility] [address] [id number] [place] [address]- 9812 23 Jun, 2013 [facility] [place] [facility] [address] [id number] [place] [address]- 2045 23 Jun, 2013 [facility] [place] [facility] [address] [id number] [place] [address]- 5680 18 Jun, 2013 [facility] [place] [facility] [address] [id number] [place] [address]- 3238 16 Jun, 2013 [facility] [place] [facility] [address] [id number] [place] [address]- 5182 16 Jun, 2013 [facility] [place] [facility] [address] [id number] [place] [address]- 4813 Jun, [facility] [place] [facility] [address] [id number] [place] [address]- 5789 08 Jun, 2013 [facility] [place] [facility] [address] [id number] [place] [address]- 3402 17 May, 2013 [facility] [place] [facility] [address] [id number] [place] [address]- 7597 17 May, 2013 [facility] [place] [facility] [address] [id number] [place] [address]- 2963 14 May, 2013 [facility] [place] [facility] [address] [id number] [place] [address]- 0324 14 May, 2013 [facility] [place] [facility] [address] [id number] [place] [address]- 3031 13 May, 2013 [facility] [place] [facility] [address] [id number] [place] [address]- 4459 13 May, 2013 [facility] [place] [facility] [address] [id number] [place] [address]- 6047 10 May, 2013 [facility] [place] [facility] [address] [id number] [place] [address]- 7084 10 May, 2013 [facility] [place] [facility] [address] [id number] [place] [address]- 5009 07 May, 2013 [facility] [place] [facility] [address] [id number] [place] [address]- 5479 Apr, [facility] [place] [facility] [address] [id number] [place] [address]- 3002 Apr, [facility] [place] [facility] [address] [id number] [place] [address]- 7886 18 Apr, 2013 [facility] [place] [facility] [address] [id number] [place] [address]- 8806 Apr, [facility] [place] [facility] [address] [id number] [place] [address]- 0446 Apr, [facility] [place] [facility] [address] [id number] [place] [address]- 1146 Apr, [facility] [place] [facility] [address] [id number] [place] [address]- 5637 Apr, [facility] [place] [facility] [address] [id number] [place] [address]- 9610 Apr, [facility] [place] [facility] [address] [id number] [place] [address]- 9064 Apr, [facility] [place] [facility] [address] [facility] [id number] [place] [address]- 2214 Apr, [facility] [place] [facility] [address] [facility] [id number] [place] [address]- 2438 Mar, [facility] [place] [facility] [address] [id number] [place] [address]- 3168 Mar, [facility] [place] [facility] [address] [id number] [place] [address]- 8075 Mar, [facility] [place] [facility] [address] [id number] [place] [address]- 2248 Mar, [facility] [place] [facility] [address] [id number] [place] [address]- 2424 Mar, [facility] [place] [facility] [address] [id number] [place] [address]- 0051 Mar, [facility] [place] [facility] [address] [id number] [place] [address]- 5377 Mar, [facility] [place] [facility] [address] [id number] [place] [address]- 2882 Mar, [facility] [place] [facility] [address] [facility] [id number] [place] [address]- 6817 Feb, [facility] [place] [facility] [address] [id number] [place] [address]- 7101 Feb, [facility] [place] [facility] [address] [id number] [place] [address]- 2782 Jan, [facility] [place] [facility] [address] [id number] [place] [address]- 1554 Jan, [facility] [place] [facility] [address] [id number] [place] [address]- 2686 Jan, [facility] [place] [facility] [address] [id number], [place] [address]- 2787 15 Jan, 2013 [facility] [place] [facility] [address] [id number], [place] [address]- 5795 Jan, [facility] [place] [facility] [address] [id number], [place] [address]- 5998 Jan, [facility] [place] [facility] [address] [id number], [place] [address]- 2773 05 Jan, 2013 [facility] [place] [facility] [address] [id number], [place] [address]- 7047 05 Jan, 2013 [facility] [place] [facility] [address] [id number], [place] [address]- 7839 13 Dec, 2012 [facility] [place] [facility] [address] [id number], [place] [address]- 7958 10 Dec, 2012 [facility] [place] [facility] [address] [id number], [place] [address]- 5041 10 Dec, 2012 [facility] [place] [facility] [address] [id number] [place] [address]- 7741 20 Nov, 2012 [facility] [address] [id number] [place] [address]- 0656 13 Nov, 2012 [facility] [address] [id number] [place] [address]- 4056 12 Nov, 2012 [facility] [address] [id number] [place] [address]- 3405 Nov, [facility] [address] [id number] [place] [address] 2542 Nov, [facility] [address] [id number] [place] [address]- 5173 Nov, [facility] [address] [id number] [place] [address]- 6129 Oct, [facility] [address] [id number] [place] [address]- 5350 Oct, [facility] [address] [id number] [place] [address]- 0469 Sep, [facility] [address] [id number] [place] [address]- 0597 Sep, [facility] [address] [id number] [place] [address]- 0272 Sep, [facility] [address] [id number] [place] [address]- 7798 Sep, [facility] [address] [id number] [place] [address]- 9038 Sep, [facility] [place] [facility] [address] [id number] [place] [address]- 6924 Sep, [facility] [place] [facility] [address] [id number] [place] [address]- 7663 Sep, [facility] [address] [id number] [place] [address]- 6363 Aug, [facility] [place] [facility] [address] [id number] [place] [address]- 4450 14 Aug, 2012 [facility] [address] [id number] [place] [address]- 2623 13 Aug, 2012 [facility] [address] [id number] [place] [address]- 8397 12 Aug, 2012 [facility] [place] [facility] [address] [id number] [place] [address]- 9109 11 Aug, 2012 [facility] [address] [id number] [place] [address]- 7028 Aug, [facility] [address] [id number] [place] [address]- 5644 July, [facility] [address] [id number] [place] [address]- 1082 July, [facility] [address] [id number] [place] [address]- 5193 July, [facility] [address] [id number] [place] [address]- 3893 July, [facility] [address] [id number] [place] [address]- 2504 July, [facility] [place] [facility] [address] [id number] [place] [address]- 4198 July, [facility] [place] [facility] [address] [id number] [place] [address]- 9540 Jun, [facility] [place] [facility] [address] [id number] [place] [address]- 3901 Jun, [facility] [place] [facility] [address] [id number] [place] [address]- 9216 15 Jun, 2012 [facility] [place] [facility] [address] [id number] [place] [address]- 4068 Jun, [facility] [place] [facility] [address] [id number] [place] [address]- 0394 Jun, [facility] [place] [facility] [address] [id number] [place] [address]- 8069 Jun, [facility] [place] [facility] [address] [facility] [id number] [place] [address]- 0292 Jun, [facility] [place] [facility] [address] [facility] [id number] [place] [address]- 7026 07 May, 2012 [facility] [place] [facility] [address] [facility] [id number] [place] [address]- 3123 04 May, 2012 [facility] [place] [facility] [address] [facility] [id number] [place] [address]- 7614 26 Apr, 2012 [facility] [place] [facility] [address] [facility] [id number] [place] [address]- 9341 Apr, 2012 [facility] [place] [facility] [id number] [place] [address]- 4927 18 Apr, 2012 [facility] [place] [facility] [address] [facility] [id number] [place] [address]- 1642 18 Apr, 2012 [facility] [place] [facility] [address] [facility] [id number] [place] [address]- 0668 12 Apr, 2012 [facility] [place] [facility] [address] [facility] [id number] [place] [address]- 5808 08 Apr, 2012 [facility] [place] [facility] [address] [facility] [id number] [place] [address] 07 Apr, 2012 [facility] [place] [facility] [address] [facility] [id number] [place] [address] 07 Apr, 2012 [facility] [place] [facility] [address] [facility] [id number] [place] [address] 06 Apr, 2012 [facility] [place] [facility] [address] [facility] [id number] [place] [address] 06 Apr, 2012 [facility] [place] [facility] [id number] [place] [address] Apr, [facility] [address] [id number] [place] [address] Mar, [facility] [address] [id number] [place] [address] Mar, [facility] [address] [id number] [place] [address] Mar, [facility] [address] [id number] [place] [address] Mar, [facility] [address] [id number] [place] [address] Mar, [facility] [address] [id number] [place] [address] Mar, [facility] [address] [id number] [place] [address]990 Mar, [facility] [address] [id number] [place] [address] Mar, [facility] [address] [id number] [place] [address] 130[address] Mar, [facility] [address] [id number] [place] [address] Mar, [facility] [address] [id number] [place] [address] Mar, [facility] [address] [id number] [place] [address]- [address] Mar, [facility] [place] [facility] [address] [id number] [place] [address]690 Mar, [facility] [place] [facility] [address] [id number] [place] [address] Feb, [facility] [place] [facility] [address] [id number] [place] [address] Feb, [facility] [address] [id number] [place] [address] 18 Feb, 2012 [facility] [place] [facility] [address] [id number] [place] [address]206 18 Feb, 2012 [facility] [place] [facility] [address] [id number] [place] [address] Feb, [facility] [place] [facility] [address] [id number] [place] [address] 36[address] Feb, [facility] [place] [facility] [address] [id number] [place] [address]- [address]226 10 Feb, 2012 [facility] [place] [facility] [address] [id number] [place] [address]- [address]396 Feb, [facility] [place] [facility] [address] [id number] [place] [address] 67[address] Feb, [facility] [place] [facility] [address] [id number] [place] [address]- 1727 Feb, [facility] [place] [facility] [address] [id number] [place] [address]- [address] Feb, [facility] [place] [facility] [address] [id number] [place] [address] 3500 Feb, [facility] [place] [facility] [address] [id number] [place] [address] 7164 Feb, [facility] [place] [facility] [address] [id number] [place] [address] 8475 Feb, [facility] [place] [facility] [address] [id number] [place] [address]270 Feb, [facility] [place] [facility] [address] [id number] [place] [address]- [address] Jan, [facility] [place] [facility] [address] [id number] [place] [address] 67[address] Jan, [facility] [place] [facility] [address] [id number] [place] [address]- 8216 Jan, [facility] [place] [facility] [address] [id number] [place] [address] Jan, [facility] [place] [facility] [address] [id number] [place] [address] 8847 Dec, [facility] [place] [facility] [address] [id number] [place] [address] 9[address] Dec, [facility] [place] [facility] [address] [id number] [place] [address]- [address]255 Dec, [facility] [place] [facility] [address] [id number] [place] [address]- [address]679 Dec, [facility] [place] [facility] [address] [id number] [place] [address] Dec, [facility] [place] [facility] [address] [id number] [place] [address]- 9698 Dec, [facility] [place] [facility] [address] [id number] [place] [address]- [address] Dec, [facility] [place] [facility] [address] [id number] [place] [address]- [address] Dec, [facility] [place] [facility] [address] [id number] [place] [address]- 2442 Dec, [facility] [place] [facility] [address] [id number] [place] [address]995 Dec, [facility] [place] [facility] [address] [id number] [place] [address] Dec, [facility] [place] [facility] [address] [id number] [place] [address] Nov, [facility] [place] [facility] [address] [id number] [place] [address]- 65[address] 24 Sep2011 [facility] [place] [facility] [address] [id number] [place] [address] 20 Nov, 2011 [facility] [place] [facility] [address] [id number] [place] [address]- [address] 19 Sep, 2011 [facility] [place] [facility] [address] [id number] [place] [address]- [address] 17 Sep, 2011 [facility] [place] [facility] [address] [id number] [place] [address]- 5746 16 Sep, 2011 [facility] [place] [facility] [address] [id number] [place] [address]46 14 Sep, 2011 [facility] [place] [facility] [address] [id number] [place] [address]- 1136 13 Sep, 2011 [facility] [place] [facility] [address] [id number] [place] [address] 12 Sep, 2011 [facility] [place] [facility] [address] [id number] [place] [address] 07 Sep, 2011 [facility] [place] [facility] [address] [id number] [place] [address] 06 Sep, 2011 [facility] [place] [facility] [address] [id number] [place] [address] 06 Sep, 2011 [facility] [place] [facility] [address] [id number] [place] [address] 05 Nov, 2011 [facility] [place] [facility] [address] [id number] [place] [address] 29 Oct, 2011 [facility] [place] [facility] [address] [id number] [place] [address] 2944 29 Oct, 2011 [facility] [place] [facility] [address] [id number], [place] [address] Oct, [facility] [place] [facility] [address] [id number] [place] [address] 254 Oct, [facility] [place] [facility] [address] [id number] [place] [address] Oct, [facility] [place] [facility] [address] [id number] [place] [address] Oct, [facility] [place] [facility] [address] [id number] [place] [address] Oct, [facility] [place] [facility] [address] [id number] [place] [address] 15[address] Oct, [facility] [place] [facility] [address] [id number] [place] [address]266 Oct, [facility] [place] [facility] [address] [id number] [place] [address]248 Oct, [facility] [place] [facility] [address] [id number] [place] [address] Oct, [facility] [place] [facility] [address] [id number] [place] [address] 40[address] Sep, [facility] [place] [facility] [address] [id number] [place] [address] 58[address] Sep, [facility] [place] [facility] [address] [id number] [place] [address] 3591 Sep, [facility] [place] [facility] [address] [id number] [place] [address] Sep, [facility] [place] [facility] [address] [id number] [place] [address] 8067 Sep, [facility] [place] [facility] [address] [id number] [place] [address] Sep, [facility] [place] [facility] [address] [id number] [place] [address] Aug, [facility] [place] [facility] [address] [id number] [place] [address] July, [facility] [place] [facility] [address] [id number] [place] [address] July, [facility] [place] [facility] [address] [id number] [place] [id number] [address] Jun, [facility] [place] [facility] [address] [id number] [place] [address]- 0768 Jun, [facility] [place] [facility] [address] [id number] [place] [address]17 11 Jun, 2011 [facility] [place] [facility] [address] [id number] [place] [address] Jun, [facility] [place] [facility] [address] [id number] [place] [address] 0721 Jun, [facility] [place] [facility] [address] [id number] [place] [address] 5979 Jun, [facility] [address] [id number] [place] [address] Jun, [facility] [place] [facility] [address] [id number] [place] [address] Jun, [facility] [address] [id number] [place] [address] 5071 Jun, [facility] [address] [id number] [place] [address] 8243 Jun, [facility] [place] [facility] [address] [id number] [place] [address] 9191 Jun, [facility] [place] [facility] [address] [id number] [place] [address] 5[address] May, [facility] [place] [facility] [address] [id number] [place] [address] 16 May, 2011 [facility] [place] [facility] [address] [id number] [place] [address] 1553 14 May, 2011 [facility] [place] [facility] [address] [id number] [place] [address] 06 May, 2011 [facility] [place] [facility] [address] [id number] [place] [address] Apr, [facility] [place] [facility] [address] [id number] [place] [address] 4[address] Apr, [facility] [place] [facility] [address] [id number] [place] [address] 7841 Apr, [facility] [address] [id number] [place] [address] Apr, [facility] [place] [facility] [address] [id number] [place] [address] 4186 Apr, [facility] [address] [id number] [place] [address] 7486 Apr, [facility] [place] [facility] [address] [id number] [place] [address] 5216 Apr, [facility] [address] [id number] [place] [address]- 2595 Apr, [facility] [address] [id number] [place] [address] 4417 Mar, [facility] [address] [id number] [place] [address] 1472 Mar, [facility] [address] [id number] [place] [address] 4140 Mar, [facility] [place] [facility] [address] [id number] [place] [address] 7490 Mar, [facility] [address] [id number] [place] [address]180 17 Mar, 2011 [facility] [address] [id number] [place] [address] 1276 Mar, [facility] [place] [facility] [address] [id number] [place] [address] 3843 Mar, [facility] [place] [facility] [address] [id number] [place] [address] 6269 Mar, [facility] [place] [facility] [address] [id number] [place] [address] 5144 Mar, [facility] [place] [facility] [address] [id number] [place] [address] 5948 Mar, [facility] [place] [facility] [address] [id number] [place] [address] 3166 Mar, [facility] [address] [id number] [place] [address] 7875 Mar, [facility] [address] [id number] [place] [address] 5213 Mar, [facility] [address] [id number] [place] [address]- 2535 Mar, [facility] [address] [id number] [place] [address] 8[address] Mar, [facility] [address] [id number] [place] [address] Mar, [facility] [address] [id number] [place] [address] 5749 Feb, [facility] [address] [id number] [place] [address] 8164 Feb, [facility] [address] [id number] [place] [address] 2056 Feb, [facility] [address] [id number] [place] [address]- 4529 Jan, [facility] [address] [id number] [place] [address]- 7963 Jan, [facility] [address] [id number], [place] [address] 98[address] Jan, [facility] [place] [facility] [address] [id number] [place] [address]- 9215 Dec, [facility] [place] [facility] [address] [id number] [place] [address]- 0415 Dec, [facility] [place] [facility] [address] [id number] [place] [address] 3[address] 16 Nov, 2010 [facility] [place] [facility] [address] [id number], [place] [address] 9466 Oct, [facility] [address] [facility] [id number], [place] [address] Oct, [facility] [address] [facility] [id number], [place] [address] Oct, [facility] [address] [facility] [id number], [place] [address]196 Sep, [facility] [address] [facility] [id number], [place] [address] 1636 Apr, [facility] [address] [facility] [id number], [place] [address] 6046 Feb, [facility] [address] [facility] [id number], [place] [address] Jan, IMMUNIZATIONS No Known Immunizations SOCIAL HISTORY Never Assessed REASON FOR VISIT TE/AJIT PLAN OF CARE Activity Details Follow Up prn Reason:TE VITAL SIGNS Height 70 in 2016-10-29 Blood pressure systolic 156 mmHg 2016-10-29 Blood pressure diastolic 101 mmHg 2016-10-29 MEDICATIONS Medication Instructions Dosage Frequency Start Date End Date Duration Status Trulicity 0.75 MG/0.5ML Subcutaneous once weekly 0.5 ml Jun, 90 days Active Wellbutrin SR 150 MG Orally Twice a day 1 tablet 12h Aug, 30 days Active Multivitamin Adult - Active Zyrtec Allergy 10 MG Orally Once a day 1 tablet 24h Active Zyprexa 15 MG Orally Once a day 1 tablet 24h Jan, 30 days Active Nystatin 428051 UNIT/ML Mouth/Throat Four times a day 4 ml 6h 14 Oct, 2016 Nov, 14 days Active Neurontin 300 MG Orally Three times a day 1 capsule 8h Dec, 30 days Active Ventolin HFA 90 mcg/actuation Inhalation every 4 hrs 2 puffs as needed 4h Dec, Active Topamax 100 mg Orally Twice a day 1 tablet 12h 30 Active Cymbalta 60 mg Orally PALS Twice a day 1 capsule 12h Feb, 30 days Active Abilify 5 mg Orally Once a day 1 tablet 24h Jun, 30 days Active Spiriva HandiHaler 18 MCG Inhalation Once a day 1 capsule 24h Active Advair Diskus 250 mcg-50 mcg Inhalation Twice a day 1 puff 12h Dec, Active Amitriptyline HCl 150 MG Orally repository Once a day 1 tablet 24h 30 days Active Chantix Starting Month Mikie 0.5 MG X 11 & 1 MG X 42 Orally 2 times a day 0.5mg daily X 3 days, 0.5mg bid X 4 days, 1 tab bid 12h 19 Aug, 2016 30 days Active Oxygen Active RESULTS No Results PROCEDURES Procedure Date Ordered Result Body Site Dental no charge Oct 29, 2016 INSTRUCTIONS MEDICATIONS ADMINISTERED No Known Medications MEDICAL (GENERAL) HISTORY Type Description Date Medical History COPD Medical History asthma Medical History heart cath Medical History Social phobia 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 Hospitalization History for COPD x2 Mar 2017 Hospitalization History Upper GI bleed at apr 2017 Hospitalization History [facility]- COPD Exacerbation, diarrhea 05/23/2017 Hospitalization History COPD exacerbation-[facility] 06/13/17
--- OUTSIDE RECORDS SUMMARY | 2017-08-04 18:26 | XMS REPORT ---
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 Active Problem Thrush B37.0 Active 54979857 Problem TMJ (sprain of temporomandibular joint) S03.4XXA Active 98245973 Problem Tobacco abuse Z72.0 Active 34366372 Problem Non morbid obesity due to excess calories E66.09 Active 626678547 Problem Migraine G43.909 Active 15619246 Problem History of MRSA infection Z86.14 Active 617548794 Problem Knee pain, left M25.562 Active 99531374 Problem Obesity, unspecified obesity severity, unspecified obesity type E66.9 Active 150474381 Problem Migraine without aura and without status migrainosus, not intractable G43.009 Active 709496406 Problem Other emphysema J43.8 Active 27143678 Problem Chronic obstructive pulmonary disease with acute exacerbation J44.1 Active 151721001 Problem Intractable cyclical vomiting with nausea G43.A1 Active 16743875 Problem Chronic constipation K59.09 Active 785574842 Problem Acute bronchitis with COPD J44.0 Active 249963202282476 Problem Encounter for tobacco use cessation counseling Z71.6 Active 514289182 Problem Methamphetamine use disorder, moderate, 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 Active 17653539 Problem Chronic bronchitis, unspecified chronic bronchitis type J42 Active 28663017 Problem Viral illness B34.9 Active 37700125 Problem Diabetes E11.9 Active 766668857 Problem Memory loss R41.3 Active 34222062 Problem Left knee pain M25.562 Active 12787942 Problem Dry mouth R68.2 Active 37554892 Problem Yeast vaginitis B37.3 Active 06755758 Problem Generalized anxiety disorder F41.1 Active 79743835 Problem Bipolar disorder with depression F31.30 Active 33341294 Problem Bipolar disorder, unspecified F31.9 Active 65102040 Problem Bipolar disorder, current episode depressed, severe, without psychotic features F31.4 Active 94314605 ALLERGIES No Information ENCOUNTERS Encounter Location Date Diagnosis [facility] [address] [address] July, [facility] [address] [address] Jun, Chronic obstructive pulmonary disease with acute exacerbation J44.1 ; Diabetes E11.9 and Tobacco abuse Z72.0 [facility] [address] [address]- [address] Jun, [facility] [address] [address]- [address] Jun, [facility] [address] [address]- [address] May, [facility] [address] [address]- [address]3 May, [facility] [id number] [place] [address] 60094 -[address]31 17 May, 2017 [facility] [id number] [place] [address] 84164- 1535 16 May, 2017 [facility] [id number] [place] [address] 19156- 6862 15 May, 2017 [facility] [address] [address]- [address] 14 May, 2017 Diarrhea, unspecified type R19.7 and Intractable cyclical vomiting with nausea G43.A1 [facility] [address] [address]- [address] May, [facility] [id number] [place] [address] 68475- 8176 May, [facility] [address] 32757- 4[address] Apr, COPD exacerbation J44.1 ; Esophageal candidiasis B37.81 ; Other acute gastritis with hemorrhage K29.01 and Acute posthemorrhagic anemia D62 [place] [address] [address]- [address] Apr, Viral illness B34.9 and COPD exacerbation J44.1 [facility] [address] [address] Apr, Shortness of breath R06.02 and Pneumonia of both lower lobes due to infectious organism J18.9 [facility] [address] [address] Mar, COPD with acute exacerbation J44.1 [place] [address] [address]- [address] Mar, Chronic obstructive pulmonary disease with acute exacerbation J44.1 and Diabetes E11.9 [place] [address] 7[address]33- 7156 Mar, [place] [address] [address]- 2403 Mar, [facility] [address] 37[address] Mar, COPD exacerbation J44.1 [place] [address] 79[address]- 4284 Mar, [place] [address] [address]- 9584 Mar, Migraine G43.909 ; Hypokalemia E87.6 and Type 2 diabetes mellitus without complications E11.9 [facility] [address] [place] [address] 15 Feb, 2017 [facility] [id number] [place] [address] 81178- 2385 Feb, [facility] [id number] [place] [address] 94746- 8556 Feb, Methamphetamine use disorder, moderate, 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 ; Major depressive disorder, recurrent, moderate F33.1 ; Anxiety disorder, unspecified F41.9 and Tobacco abuse Z72.0 [facility] [id number] [place] [address] 51714- 3804 30 Jan, 2017 Major depressive disorder, recurrent, moderate F33.1 [facility] [id number] [place] [address] 72269- 2044 16 Jan, 2017 [facility] [id number] [place] [address] 26613- 1285 Jan, [facility] [id number] [place] [address] 56720- 8455 Jan, Major depressive disorder, recurrent, moderate F33.1 [facility] [id number] [place] [address] 07722- 5719 Jan, Major depressive disorder, recurrent, moderate F33.1 ; Anxiety disorder, unspecified F41.9 ; Methamphetamine use disorder, moderate, 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 and Tobacco abuse Z72.0 [place] [id number] [place] [address] 94366- 8340 Jan, [facility] [id number] [place] [address] 57344- 6295 Jan, Chronic obstructive pulmonary disease with acute exacerbation J44.1 and Diabetes E11.9 [facility] [id number] [place] [address] 45936- 0974 Jan, [facility] [id number] [place] [address] 17149- 4389 Jan, [facility] [address] [place] [address] Dec, Acute respiratory failure with hypoxia J96.01 and Chronic bronchitis, unspecified chronic bronchitis type J42 [facility] [address] [place] [address] Dec, [facility] [address] [id number] Nov, Dental caries K02.9 and Dental examination Z01.20 [facility] [id number] [place] [address] 15343- 8225 Nov, Major depressive disorder, recurrent, moderate F33.1 ; Anxiety disorder, unspecified F41.9 and 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 [facility] [address] [id number] Oct, Dental examination Z01.20 [facility] [id number] [place] [address] 69660- 5906 Oct, [facility] [id number] [place] [address] 62341- 0661 Oct, Diabetes E11.9 and Thrush B37.0 [facility] [address] [place] [address] 8[address] Oct, [facility] [address] [place] [address] 39[address] Oct, [facility] [id number] [place] [address] 37305- 2796 Oct, [facility] [id number] [place] [address] 69392- 5660 Sep, Major depressive disorder, recurrent, moderate F33.1 ; Anxiety disorder, unspecified F41.9 and Bipolar disorder, unspecified F31.9 [facility] [address] [place] [address] Sep, Acute exacerbation of chronic obstructive pulmonary disease (COPD) J44.1 and Migraine G43.909 [facility] [address] [place] [address]- 3[address] Sep, [facility] [id number] [place] [phone] Sep, [facility] [id number] [place] [address] 18816- 1886 Sep, Acute exacerbation of chronic obstructive pulmonary disease (COPD) J44.1 [facility] [id number] [place] [address] 42419 -2385 Sep, Acute exacerbation of chronic obstructive pulmonary disease (COPD) J44.1 [facility] [id number] [place] [address] 02321- 4723 Aug, [facility] [id number] [place] [address] 14861- 8420 Aug, Major depressive disorder, recurrent, moderate F33.1 ; Anxiety disorder, unspecified F41.9 and 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 [facility] [id number] [place] [address] 58877- 1779 Aug, Wheezing R06.2 ; Non morbid obesity due to excess calories E66.09 ; Migraine without aura and without status migrainosus, not intractable G43.009 and Tobacco abuse Z72.0 [facility] [id number] [place] [address] [id number] 14 Aug, 2016 Encounter for dental examination Z01.20 [facility] [id number] [place] [address] 25301- 5295 02 Aug, 2016 Major depressive disorder, recurrent, moderate F33.1 ; Anxiety disorder, unspecified F41.9 and 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 [facility] [address], [place] [address] 8599 July, [facility] [id number] [place] [address] 86385- 5049 July, [facility] [address], [place] [address]- 2595 July, [facility] [id number] [place] [address] 44882- 6117 July, Diabetes E11.9 [facility] [id number] [place] [address] 58248- 1422 Jun, Major depressive disorder, recurrent, moderate F33.1 [facility] [id number] [place] [address] 53544- 4450 Jun, Major depressive disorder, recurrent, moderate F33.1 ; 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 ; Generalized anxiety disorder F41.1 and Bipolar disorder, unspecified F31.9 [facility] [id number] [place] [address] 70782- 6188 Jun, Diabetes E11.9 ; Migraine G43.909 ; Thrush B37.0 and Wheezing R06.2 [facility] [id number] [place] [address] [id number] Jun, Dental examination Z01.20 [facility] [id number] [place] [address] 19260- 3381 Jun, [facility] [id number] [place] [address] 75567- 1895 Jun, Major depressive disorder, recurrent, moderate F33.1 ; Anxiety disorder, unspecified F41.9 and 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 [facility] [address] [facility] [id number] [place] [address] 20423- 2979 Jun, [facility] [id number] [place] [address] 02469- 7189 Jun, Wheezing R06.2 [facility] [id number] [place] [address] [id number] Jun, Dental caries K02.9 [facility] [id number] [place] [address] 02196- 9077 Jun, Major depressive disorder, recurrent, moderate F33.1 ; Anxiety disorder, unspecified F41.9 and 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 [facility] [id number] [place] [address] 18707- 9893 Jun, RLQ abdominal pain R10.31 ; Diabetes E11.9 ; Obesity, unspecified obesity severity, unspecified obesity type E66.9 ; Wheezing R06.2 and Abnormal urinalysis R82.90 [place] [id number] [place] [address] 94798- 9463 May, [place] [id number] [place] [address] 10110- 7744 May, Well woman exam Z01.419 ; Breast cancer screening Z12.39 ; Cervical cancer screening Z12.4 ; Urinary frequency R35.0 ; Edema, unspecified type R60.9 and Chronic constipation K59.09 [place] [id number] [place] [address] 85050- 0910 May, Major depressive disorder, recurrent, moderate F33.1 ; Anxiety disorder, unspecified F41.9 and 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 [facility] [id number] [place] [address] [phone] May, Dental examination Z01.20 [place] [id number] [place] [address] 80169- 8079 May, [facility] [id number] [place] [address] 08096- 2325 May, [facility] [id number] [place] [address] 62231- 2857 May, Chronic constipation K59.09 [place] [id number] [place] [address] 83577- 1897 Apr, [facility] [address] [place] [address]- 4569 Apr, Major depressive disorder, recurrent, moderate F33.1 ; Anxiety disorder, unspecified F41.9 and 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 [facility] [id number] [address]- 2392 Apr, [place] [id number] [place] [address] 65916- 9543 Mar, Major depressive disorder, recurrent, moderate F33.1 [place] [id number] [place] [address] 02339- 6170 Mar, Major depressive disorder, recurrent, moderate F33.1 ; Generalized anxiety disorder F41.1 and Bipolar I disorder, most recent episode depressed with anxious distress F31.30 [place] [id number] [place] [address] 07600- 4499 Mar, Diabetes E11.9 ; Non morbid obesity due to excess calories E66.09 ; Breast cancer screening Z12.39 and Encounter for immunization Z23 [place] [id number] [place] [address] 76459- 6095 Mar, Major depressive disorder, recurrent, moderate F33.1 ; Anxiety disorder, unspecified F41.9 and 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 [place] [address], [place] [address]- 1736 Mar, [place] [id number] [place] [address] 82422- 9290 Feb, Major depressive disorder, recurrent, moderate F33.1 ; Anxiety disorder, unspecified F41.9 and 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 [place] [id number] [place] [address] 31688- 0738 Feb, [place] [id number] [place] [address] 55623- 7287 Feb, [place] [id number] [place] [address] 81051- 0895 Jan, Major depressive disorder, recurrent, moderate F33.1 ; Generalized anxiety disorder F41.1 and Bipolar disorder, current episode depressed, severe, without psychotic features F31.4 [facility] [id number] [place] [address] 31216- 6467 18 Jan, 2016 Major depressive disorder, recurrent, moderate F33.1 ; Anxiety disorder, unspecified F41.9 and 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 [facility] [id number] [place] [address] 83879- 2234 Jan, Bronchitis J40 [facility] [id number] [place] [address] 15703- 3535 Jan, [place] [id number] [place] [address] 63106- 1941 Jan, [facility] [id number] [place] [address] 17746- 3909 Jan, Elbow injury, right, initial encounter S59.901A ; Multiple contusions T14.8 and Cervical strain, acute, initial encounter S16.1XXA [facility] [id number] [place] [address] 32960- 0414 Dec, Major depressive disorder, recurrent, moderate F33.1 ; Generalized anxiety disorder F41.1 and Bipolar disorder with depression F31.30 [facility] [id number] [place] [address] 08724- 2085 Dec, [facility] [id number] [place] [address] 56651- 6853 Dec, [facility] [id number] [place] [address] 65264- 5881 Dec, [facility] [id number] [place] [address] 30144- 9510 Dec, [facility] [id number] [place] [address] 41227- 4107 Dec, Yeast infection B37.9 [place] [id number] [place] [address] 36812- 9882 Dec, Pneumonia of both lungs due to methicillin resistant Staphylococcus aureus (MRSA), unspecified part of lung J15.212 and Benzodiazepine overdose, accidental or unintentional, subsequent encounter T42.4X1D [facility] [facility] [id number] [place] [address] 67263- 8801 Dec, [facility] [id number] [place] [address] 77664- 2384 Dec, [facility] [id number] [place] [address] 53378- 2040 Dec, Knee pain, left M25.562 and Edema, unspecified type R60.9 [facility] [id number] [place] [address] 37346- 9573 Dec, [place] [id number] [place] [address] 26232- 4217 Dec, Anxiety disorder, unspecified F41.9 and Bipolar disorder, unspecified F31.9 [place] [id number] [place] [address] 50878- 5979 Nov, Major depressive disorder, recurrent, moderate F33.1 ; Anxiety disorder, unspecified F41.9 and 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 [place] [id number] [place] [address] 07182- 3521 Nov, [facility] [id number] [place] [address] 06159- 9973 Nov, Migraine without aura and without status migrainosus, not intractable G43.009 [place] [id number] [place] [address] 23376- 3848 Nov, Migraine G43.909 [facility] [id number] [place] [address] 74151- 4335 Nov, [place] [id number] [place] [address] 14887- 8686 Nov, Major depressive disorder, recurrent, moderate F33.1 ; Anxiety disorder, unspecified F41.9 and 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 [facility] [id number] [place] [address] 26654- 0553 Oct, Chronic constipation K59.09 and Obesity, unspecified obesity severity, unspecified obesity type E66.9 [place] [id number] [place] [address] 32702- 7142 Oct, Obesity, unspecified obesity severity, unspecified obesity type E66.9 ; Chronic constipation K59.09 and Anxiety disorder, unspecified F41.9 [facility] [id number] [place] [address] 82301- 3477 Oct, [place] [id number] [place] [address] 62565- 4747 Sep, Diabetes E11.9 ; Edema, unspecified type R60.9 ; Varicose vein of leg I83.90 and Obesity, unspecified obesity severity, unspecified obesity type E66.9 [facility] [id number] [place] [address] 86573- 2322 Sep, Edema, unspecified type R60.9 ; Diabetes E11.9 and Knee pain , left M25.562 [facility] [id number] [place] [address] 23917- 6228 Sep, [place] [id number] [place] [address] 29901- 2001 Sep, [place] [id number] [place] [address] 69457- 6192 Sep, Major depressive disorder, recurrent, moderate F33.1 ; Generalized anxiety disorder F41.1 and Bipolar disorder, unspecified F31.9 [facility] [id number] [place] [address] 57887- 1268 30 Aug, 2015 Chondromalacia of left knee M94.262 [facility] [id number] [place] [address] 20670- 9191 24 Aug, 2015 Major depressive disorder, recurrent, moderate F33.1 ; Anxiety disorder, unspecified F41.9 and 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 [facility] [id number] [place] [address] 11862- 6536 Aug, [facility] [id number] [place] [address] 41194- 2760 Aug, Osteoarthritis of left knee M17.9 [facility] [id number] [place] [address] 64556- 3745 Aug, [facility] [id number] [place] [address] 31792- 7759 July, Major depressive disorder, recurrent, moderate F33.1 ; Anxiety disorder, unspecified F41.9 and 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 [facility] [id number] [place] [address] 20596- 9465 July, [facility] [id number] [place] [address] 04058- 8059 July, Chronic constipation K59.09 [facility] [id number] [place] [address] 34402- 1955 Jun, [facility] [id number] [place] [address] 31097- 8650 15 Jun, 2015 [facility] [id number] [place] [address] 31924- 4019 14 Jun, 2015 Osteoarthritis of left knee M17.9 [facility] [id number] [place] [address] 51220- 0182 Jun, [facility] [id number] [place] [address] 44102- 7027 Jun, Generalized anxiety disorder F41.1 ; Bipolar disorder, unspecified F31.9 and Major depressive disorder, recurrent, moderate F33.1 [facility] [facility] [id number] [place] [address] 59512- 0623 Jun, Migraine G43.909 [facility] [id number] [place] [address] 91361- 0985 Jun, Left knee pain M25.562 ; Chronic constipation K59.09 ; Dry mouth R68.2 ; Yeast vaginitis B37.3 and Memory loss R41.3 [place] [address] [place] [id number] [place] [address] 90424- 7925 Jun, [place] [address] 76269- 7336 May, [place] [address] 98696- 4833 May, [place] [address] [address] [id number] [place] [address] 84877- 2171 May, [place] [id number] [place] [address] 68949- 5440 May, [place] [id number] [place] [address] 38760- 0952 May, Acute bronchitis with COPD J44.0 ; Knee pain, left M25.562 and Encounter for tobacco use cessation counseling Z71.6 [place] [id number] [place] [address] 72076- 9189 May, [place] [id number] [place] [address] 14741- 2209 Apr, Diabetes E11.9 ; TMJ (sprain of temporomandibular joint) S03.4XXA ; Tobacco abuse Z72.0 ; Migraine G43.909 and Anxiety F41.9 [place] [address] [id number] [place] [address] 36916- 7254 Apr, Generalized anxiety disorder F41.1 and Bipolar disorder, unspecified F31.9 [facility] [id number] [place] [address] 15262- 2130 24 Apr, 2015 Major depressive disorder, recurrent, moderate F33.1 ; Anxiety disorder, unspecified F41.9 and 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 [facility] [id number] [place] [address] 58515- 8016 Apr, [facility] [id number] [place] [address] 84837- 1003 Mar, [facility] [id number] [place] [address] 17804- 7093 15 Feb, 2015 [facility] [id number] [place] [address] 52002- 9882 14 Feb, 2015 Major depressive disorder, recurrent, moderate F33.1 ; Anxiety disorder, unspecified F41.9 and 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 [facility] [id number] [place] [address] 63660- 8846 Feb, [facility] [id number] [place] [address] 84631- 3836 Feb, Generalized anxiety disorder F41.1 and Bipolar disorder, unspecified F31.9 [facility] [id number] [place] [address] 41999- 8478 30 Jan, 2015 [facility] [id number] [place] [address] 86590- 3804 18 Jan, 2015 [facility] [id number] [place] [address] 13222- 0027 13 Jan, 2015 Bipolar disorder, unspecified F31.9 and Generalized anxiety disorder F41.1 [facility] [id number] [place] [address] 95262- 2735 14 Dec, 2014 [facility] [id number] [place] [address] 32979- 8277 Dec, Bipolar disorder, unspecified F31.9 and Generalized anxiety disorder F41.1 [facility] [address] 90891- 2479 Dec, Generalized anxiety disorder F41.1 and Major depressive disorder, recurrent, moderate F33.1 [facility] [address] 99311- 3742 Oct, Headache 784.0 ; Cough 786.2 ; Vomiting and diarrhea 787.03 and Dysuria 788.1 [facility] [address] 20033- 1019 Aug, [facility] [address] 17452- 6781 Aug, Headache 784.0 and Shortness of breath 786.05 [facility] [address] 90702- 0530 Aug, [facility] [address] 75340- 2572 Aug, Migraine 346.90 [facility] [address] 74355- 0439 Jun, [facility] [address] 81952- 0878 Jun, [facility] [address] 29468- 5497 May, [facility] [id number] [place] [address] 86198- 3621 May, [facility] [address] 46693- 6375 May, [facility] [id number] [place] [address] 87329- 5308 May, [facility] [address] 00564- 8347 May, [facility] [place] [facility] [address] [id number] [place] [address]- 7323 May, [facility] [place] [facility] [address] [id number] [place] [address]- 4927 Apr, 2014 [facility] [place] [facility] [address] [id number] [place] [address]- 6061 Apr, 2014 [facility] [place] [facility] [address] [id number] [place] [address]- 1685 Apr, 2014 [facility] [place] [facility] [address] [id number] [place] [address]- 0051 Apr, [facility] [place] [facility] [address] [id number] [place] [address]- 0345 Apr, [facility] [place] [facility] [address] [facility] [id number] [place] [address]- 3164 Mar, [facility] [place] [facility] [address] [id number] [place] [address]- 1782 Mar, [facility] [place] [facility] [address] [id number] [place] [address]- 2357 Mar, [facility] [place] [facility] [address] [facility] [id number] [place] [address]- 4016 Mar, [facility] [place] [facility] [address] [id number], [place] [address]- 6468 Feb, [facility] [place] [facility] [address] [id number], [place] [address]- 0002 19 Feb, 2014 [facility] [place] [facility] [address] [id number] [place] [address]- 4027 18 Feb, 2014 [facility] [place] [facility] [address] [id number] [place] [address]- 0773 18 Feb, 2014 [facility] [place] [facility] [address] [facility] [id number] [place] [address]- 8324 16 Feb, 2014 [facility] [place] [facility] [address] [id number] [place] 1965 16 Feb, 2014 [facility] [place] [facility] [address] [id number] [place] [address]- 3864 Feb, [facility] [place] [facility] [address] [id number] [place] 6903 Feb, [facility] [place] [facility] [address] [id number] [place] 1888 Feb, [facility] [place] [facility] [address] [id number] [place] [address]- 1458 Feb, [facility] [place] [facility] [address] [id number] [place] 0589 Feb, [facility] [place] [facility] [address] [id number] [place] [address]- 6930 Feb, [facility] [place] [facility] [address] [id number] [place] [address]- 5050 Jan, [facility] [place] [facility] [address] [id number] [place] [address]- 9646 Jan, [facility] [place] [facility] [address] [id number] [place] [address]- 7240 Dec, [facility] [place] [facility] [address] [facility] [id number] [place] [address]- 9025 Dec, [facility] [place] [facility] [address] [id number] [place] [address]- 6891 Dec, [facility] [place] [facility] [address] [id number] [place] [address]- 0781 Dec, [facility] [place] [facility] [address] [id number] [place] [address]- 6477 Dec, [facility] [place] [facility] [address] [id number] [place] [address]- 9134 Dec, [facility] [place] [facility] [address] [id number] [place] 9259 Sep, [facility] [place] [facility] [address] [id number] [place] [address]- 2811 Sep, [facility] [place] [facility] [address] [id number] [place] [address]- 9239 Sep, [facility] [place] [facility] [address] [id number] [place] [address]- 5554 Sep, [facility] [place] [facility] [address] [id number] [place] [address]- 0508 Sep, [facility] [place] [facility] [address] [id number] [place] [address]- 4073 Sep, [facility] [place] [facility] [address] [id number] [place] [address]- 5883 Sep, [facility] [place] [facility] [address] [id number] [place] [address]- 8062 Sep, [facility] [place] [facility] [address] [id number] [place] [address]- 1793 Sep, [facility] [place] [facility] [address] [id number] [place] [address]- 2280 Sep, [facility] [place] [facility] [address] [id number] [place] [address]- 9681 Aug, [facility] [place] [facility] [address] [id number] [place] [address]- 8199 Aug, [facility] [place] [facility] [address] [id number] [place] [address]- 9912 Aug, [facility] [place] [facility] [address] [id number] [place] [address]- 6438 Aug, [facility] [place] [facility] [address] [id number] [place] [address]- 2364 Aug, [facility] [place] [facility] [address] [id number] [place] [address]- 0724 Aug, [facility] [place] [facility] [address] [id number] [place] [address]- 3632 Aug, [facility] [place] [facility] [address] [id number] [place] [address]- 5549 Aug, [facility] [place] [facility] [address] [id number] [place] [address]- 6370 Aug, [facility] [place] [facility] [address] [id number] [place] [address]- 6918 Aug, [facility] [place] [facility] [address] [id number] [place] [address]- 3787 Aug, [facility] [place] [facility] [address] [id number] [place] [address]- 2846 Aug, [facility] [place] [facility] [address] [id number] [place] [address]- 2121 Aug, [facility] [place] [facility] [address] [id number] [place] [address]- 2236 July, [facility] [place] [facility] [address] [id number] [place] [address]- 8332 July, [facility] [place] [facility] [address] [id number] [place] [address]- 7671 July, [facility] [place] [facility] [address] [id number] [place] [address]- 0492 July, [facility] [place] [facility] [address] [id number] [place] [address]- 1971 July, [facility] [place] [facility] [address] [id number] [place] [address]- 8171 July, [facility] [place] [facility] [address] [id number] [place] [address]- 8375 July, [facility] [place] [facility] [address] [id number] [place] [address]- 4361 Jun, [facility] [place] [facility] [address] [id number] [place] [address]- 1781 Jun, [facility] [place] [facility] [address] [id number] [place] [address]- 3982 18 Jun, 2013 [facility] [address] [id number] [place] [address]- 0682 16 Jun, 2013 [facility] [place] [facility] [address] [id number] [place] [address]- 9786 16 Jun, 2013 [facility] [address] [id number] [place] [address]- 7766 08 Jun, 2013 [facility] [place] [facility] [address] [id number] [place] [address]- 7292 08 Jun, 2013 [facility] [place] [facility] [address] [id number] [place] [address]- 4227 17 May, 2013 [facility] [place] [facility] [address] [id number] [place] [address]- 8948 17 May, 2013 [facility] [place] [facility] [address] [id number] [place] [address]- 8459 14 May, 2013 [facility] [place] [facility] [address] [id number] [place] [address]- 1514 14 May, 2013 [facility] [place] [facility] [address] [id number] [place] [address]- 9077 13 May, 2013 [facility] [address] [id number] [place] [address]- 0261 13 May, 2013 [facility] [place] [facility] [address] [id number] [place] [address]- 2396 10 May, 2013 [facility] [place] [facility] [address] [id number] [place] [address]- 6379 10 May, 2013 [facility] [place] [facility] [address] [id number] [place] [address]- 8240 07 May, 2013 [facility] [place] [facility] [address] [id number] [place] [address]- 7226 26 Apr, 2013 [facility] [place] [facility] [address] [id number] [place] [address]- 5375 Apr, [facility] [place] [facility] [address] [id number] [place] [address]- 1403 Apr, [facility] [place] [facility] [address] [id number] [place] [address]- 7881 Apr, [facility] [place] [facility] [address] [id number] [place] [address]- 3314 Apr, [facility] [place] [facility] [address] [id number] [place] [address]- 8650 Apr, [facility] [place] [facility] [address] [id number] [place] [address]- 8850 Apr, [facility] [place] [facility] [address] [id number] [place] [address]- 1527 Apr, [facility] [place] [facility] [address] [id number] [place] [address]- 3399 Apr, [facility] [place] [facility] [address] [id number] [place] [address]- 5398 Apr, [facility] [place] [facility] [address] [id number] [place] [address]- 5139 Mar, [facility] [place] [facility] [address] [id number] [place] [address]- 2724 Mar, [facility] [place] [facility] [address] [id number] [place] [address]- 3020 Mar, [facility] [place] [facility] [address] [id number] [place] [address]- 5215 Mar, [facility] [place] [facility] [address] [id number] [place] [address]- 9936 Mar, [facility] [place] [facility] [address] [id number] [place] [address]- 7004 Mar, [facility] [place] [facility] [address] [id number] [place] [address]- 1646 Mar, [facility] [place] [facility] [address] [id number] [place] [address]- 0310 Mar, [facility] [address] [id number] [place] [address]- 7012 Feb, [facility] [place] [facility] [address] [id number] [place] [address]- 3869 Feb, [facility] [place] [facility] [address] [id number] [place] [address]- 3872 Jan, [facility] [place] [facility] [address] [id number] [place] [address]- 1874 Jan, [facility] [place] [facility] [address] [id number] [place] [address]- 0103 Jan, [facility] [place] [facility] [address] [id number] [place] [address]- 6649 15 Jan, 2013 [facility] [place] [facility] [address] [id number] [place] [address]- 6416 Jan, [facility] [place] [facility] [address] [id number] [place] [address]- 3139 Jan, [facility] [place] [facility] [address] [id number] [place] [address]- 0601 Jan, [facility] [place] [facility] [address] [id number] [place] [address]- 0234 05 Jan, 2013 [facility] [place] [facility] [address] [id number] [place] [address]- 1813 Dec, [facility] [place] [facility] [address] [id number] [place] [address]- 7194 Dec, [facility] [place] [facility] [address] [id number] [place] 4785 10 Dec, 2012 [facility] [place] [facility] [address] [id number] [place] [address]- 1840 20 Nov, 2012 [facility] [place] [facility] [address] [id number] [place] [address]- 2337 Nov, [facility] [place] [facility] [address] [id number] [place] [address]- 6721 12 Nov, 2012 [facility] [place] [facility] [address] [id number] [place] [address]- 9564 Nov, [facility] [place] [facility] [address] [id number] [place] [address]- 6338 Nov, [facility] [place] [facility] [address] [id number] [place] [address]- 8108 Nov, [facility] [place] [facility] [address] [id number] [place] [address]- 8791 Oct, [facility] [place] [facility] [address] [id number] [place] [address]- 7818 Oct, [facility] [place] [facility] [address] [id number] [place] [address]- 9088 Sep, [facility] [place] [facility] [address] [id number] [place] [address]- 7251 Sep, [facility] [place] [facility] [address] [id number] [place] [address]- 9311 Sep, [facility] [place] [facility] [address] [id number] [place] [address]- 1182 Sep, [facility] [place] [facility] [address] [id number] [place] [address]- 3611 Sep, [facility] [place] [facility] [address] [id number] [place] [address]- 2732 Sep, [facility] [place] [facility] [address] [id number] [place] [address]- 0665 Sep, [facility] [place] [facility] [address] [id number] [place] [address]- 0464 Aug, [facility] [place] [facility] [address] [id number] [place] [address]- 9721 Aug, [facility] [place] [facility] [address] [id number] [place] [address]- 5475 13 Aug, 2012 [facility] [address] [id number] [place] [address]- 5774 12 Aug, 2012 [facility] [address] [id number] [place] [address]- 2297 Aug, [facility] [address] [id number] [place] [address]- 1534 Aug, [facility] [address] [id number] [place] [address]- 7344 July, [facility] [address] [id number] [place] [address]- 9386 July, [facility] [address] [id number] [place] [address]- 0204 July, [facility] [address] [id number] [place] [address]- 8116 July, [facility] [address] [id number] [place] [address]- 9305 July, [facility] [address] [id number] [place] [address]- 5672 July, [facility] [address] [id number] [place] [address]- 6205 Jun, [facility] [address] [id number] [place] [address]- 5254 Jun, [facility] [place] [facility] [address] [id number] [place] [address]- 9905 15 Jun, 2012 [facility] [place] [facility] [address] [id number] [place] [address]- 1196 Jun, [facility] [place] [facility] [address] [id number] [place] [address]- 3433 Jun, [facility] [place] [facility] [address] [id number] [place] [address]- 8863 Jun, [facility] [place] [facility] [address] [id number] [place] [address]- 1097 Jun, [facility] [place] [facility] [address] [id number] [place] [address]- 6876 May, [facility] [place] [facility] [address] [id number] [place] [address] 2548 May, [facility] [place] [facility] [address] [id number] [place] [address]- 7236 26 Apr, 2012 [facility] [place] [facility] [address] [id number] [place] [address] 2549 Apr, 2012 [facility] [place] [facility] [address] [id number] [place] [address] 2546 Apr, [facility] [place] [facility] [address] [id number] [place] [address]- 8529 Apr, [facility] [place] [facility] [address] [id number] [place] [address]- 6244 Apr, [facility] [place] [facility] [address] [id number] [place] [address]- 2541 08 Apr, 2012 [facility] [place] [facility] [address] [facility] [id number] [place] [address]- 4624 Apr, [facility] [place] [facility] [address] [id number] [place] [address]- 2544 Apr, 2012 [facility] [place] [facility] [address] [id number] [place] [address] 2548 Apr, [facility] [place] [facility] [address] [id number] [place] [address]- 2541 Apr, [facility] [place] [facility] [address] [id number] [place] [address] 03 Apr, 2012 [facility] [place] [facility] [address] [id number] [place] [address] Mar, [facility] [place] [facility] [address] [id number] [place] [address] Mar, [facility] [address] [id number] [place] [address] Mar, [facility] [address] [id number] [place] [address] Mar, [facility] [address] [id number] [place] [address] Mar, [facility] [address] [id number] [place] [address] Mar, [facility] [address] [id number] [place] [address] Mar, [facility] [address] [id number] [place] [address] Mar, [facility] [address] [id number] [place] [address] Mar, [facility] [address] [id number] [place] [address] Mar, [facility] [address] [id number] [place] [address] Mar, [facility] [address] [id number] [place] [address] Mar, [facility] [address] [id number] [place] [address] Mar, [facility] [address] [id number] [place] [address] Feb, [facility] [address] [id number] [place] [address] Feb, [facility] [address] [id number] [place] [address] Feb, [facility] [address] [id number] [place] [address] Feb, [facility] [address] [id number] [place] [address] Feb, [facility] [place] [facility] [address] [id number] [place] [address]- [address] Feb, [facility] [place] [facility] [address] [id number] [place] [address] Feb, [facility] [place] [facility] [address] [id number] [place] [address]- [address] Feb, [facility] [place] [facility] [address] [id number] [place] [address]- [address] Feb, [facility] [place] [facility] [address] [id number] [place] [address] Feb, [facility] [place] [facility] [address] [id number] [place] [address] 45[address] Feb, [facility] [place] [facility] [address] [id number] [place] [address] Feb, [facility] [place] [facility] [address] [id number] [place] [address] Feb, [facility] [place] [facility] [address] [id number] [place] [address]- [address] Feb, [facility] [place] [facility] [address] [id number] [place] [address] Feb, [facility] [place] [facility] [address] [id number] [place] [address] Jan, [facility] [place] [facility] [address] [id number] [place] [address] Jan, [facility] [place] [facility] [address] [id number] [place] [address] Jan, [facility] [place] [facility] [address] [id number] [place] [address] Jan, [facility] [place] [facility] [address] [id number], [place] [address] Dec, [facility] [place] [facility] [address] [id number] [place] [address] Dec, [facility] [place] [facility] [address] [id number] [place] [address] Dec, [facility] [place] [facility] [address] [id number] [place] [address]- [address] Dec, [facility] [place] [facility] [address] [id number] [place] [address]- [address]237 Dec, [facility] [place] [facility] [address] [id number] [place] [address]- [address] Dec, [facility] [place] [facility] [address] [id number] [place] [address]- [address] Dec, [facility] [place] [facility] [address] [id number] [place] [address] Dec, [facility] [place] [facility] [address] [id number] [place] [address]- [address]180 Dec, [facility] [place] [facility] [address] [id number] [place] [address]- [address]80 Dec, [facility] [place] [facility] [address] [id number] [place] [address]- [address]283 Dec, [facility] [place] [facility] [address] [id number], [place] [address] 25 Sep, 2011 [facility] [place] [facility] [address] [id number], [place] [address]- [address] 24 Sep, 2011 [facility] [place] [facility] [address] [id number] [place] [address]- [address]10 20 Sep, 2011 [facility] [place] [facility] [address] [id number] [place] [address]- [address] 19 Sep, 2011 [facility] [place] [facility] [address] [id number] [place] [address]- [address] 17 Sep, 2011 [facility] [place] [facility] [address] [id number] [place] [address]- [address] 16 Sep, 2011 [facility] [place] [facility] [address] [id number] [place] [address]- [address] 14 Sep, 2011 [facility] [place] [facility] [address] [id number] [place] [address] 2546 13 Sep, 2011 [facility] [place] [facility] [address] [id number] [place] [address] 2546 12 Sep, 2011 [facility] [place] [facility] [address] [id number] [place] [address] 07 Sep, 2011 [facility] [place] [facility] [address] [id number] [place] [address]- [address] 06 Sep, 2011 [facility] [place] [facility] [address] [id number] [place] [address]- [address]798 06 Sep, 2011 [facility] [place] [facility] [address] [id number] [place] [address]- [address]41 05 Sep, 2011 [facility] [place] [facility] [address] [id number] [place] [address]- [address] 29 Oct, 2011 [facility] [place] [facility] [address] [id number] [place] [address]- [address]48 29 Oct, 2011 [facility] [place] [facility] [address] [id number] [place] [address]- [address] 28 Oct, 2011 [facility] [place] [facility] [address] [id number] [place] [address] 2545 28 Oct, 2011 [facility] [place] [facility] [address] [id number] [place] [address] 23 Oct, 2011 [facility] [place] [facility] [address] [id number] [place] [address] Oct, [facility] [place] [facility] [address] [id number] [place] [address] 20 Oct, 2011 [facility] [place] [facility] [address] [id number] [place] [address] Oct, [facility] [place] [facility] [address] [id number] [place] [address] Oct, [facility] [place] [facility] [address] [id number] [place] [address] Oct, [facility] [place] [facility] [address] [id number] [place] [address] Oct, [facility] [place] [facility] [address] [id number] [place] [address] Sep, [facility] [place] [facility] [address] [id number] [place] [address] Sep, [facility] [place] [facility] [address] [id number] [place] [address] Sep, [facility] [place] [facility] [address] [id number] [place] [address] Sep, [facility] [place] [facility] [address] [id number] [place] [address] Sep, [facility] [place] [facility] [address] [id number] [place] [address] Sep, [facility] [place] [facility] [address] [id number] [place] [address] Aug, [facility] [place] [facility] [address] [id number] [place] [address] July, [facility] [place] [facility] [address] [id number] [place] [address] July, [facility] [place] [facility] [address] [id number] [place] [address] Jun, [facility] [place] [facility] [address] [id number] [place] [address] Jun, [facility] [place] [facility] [address] [id number] [place] [address] Jun, [facility] [place] [facility] [address] [id number] [place] [address] 10 Jun, 2011 [facility] [address] [id number] [place] [address] 10 Jun, 2011 [facility] [place] [facility] [address] [id number] [place] [address] 10 Jun, 2011 [facility] [place] [facility] [address] [id number] [place] [address]- [address] 09 Jun, 2011 [facility] [place] [facility] [address] [id number] [place] [address] 08 Jun, 2011 [facility] [place] [facility] [address] [id number] [place] [address] Jun, [facility] [place] [facility] [address] [id number] [place] [address]- [address] Jun, [facility] [place] [facility] [address] [id number] [place] [address] 42[address] Jun, [facility] [place] [facility] [address] [id number] [place] [address] 19 May, 2011 [facility] [place] [facility] [address] [id number] [place] [address] 16 May, 2011 [facility] [place] [facility] [address] [id number] [place] [address]- [address] 14 May, 2011 [facility] [place] [facility] [address] [id number] [place] [address] 06 May, 2011 [facility] [place] [facility] [address] [id number] [place] [address] Apr, [facility] [place] [facility] [address] [id number] [place] [address] Apr, [facility] [place] [facility] [address] [id number] [place] [address] Apr, [facility] [place] [facility] [address] [id number] [place] [address] Apr, [facility] [place] [facility] [address] [id number] [place] [address] Apr, [facility] [place] [facility] [address] [id number] [place] [address]- [address] Apr, [facility] [place] [facility] [address] [id number] [place] [address] Apr, [facility] [place] [facility] [address] [id number] [place] [address] Apr, [facility] [place] [facility] [address] [id number] [place] [address] Mar, [facility] [place] [facility] [address] [id number] [place] [address] Mar, [facility] [place] [facility] [address] [id number] [place] [address]- [address] Mar, [facility] [place] [facility] [address] [id number] [place] [address]46 Mar, [facility] [place] [facility] [address] [id number] [place] [address]- [address] Mar, [facility] [place] [facility] [address] [id number] [place] [address] 1599 Mar, [facility] [place] [facility] [address] [id number] [place] [address] Mar, [facility] [place] [facility] [address] [id number] [place] [address]- [address] Mar, [facility] [place] [facility] [address] [id number] [place] [address]- [address] Mar, [facility] [place] [facility] [address] [id number] [place] [address]- [address] Mar, [facility] [place] [facility] [address] [id number] [place] [address]- [address] Mar, [facility] [place] [facility] [address] [id number] [place] [address] 39[address] Mar, [facility] [address] [id number] [place] [address] Mar, [facility] [place] [facility] [address] [id number] [place] [address]- 60[address] Mar, [facility] [address] [id number] [place] [address]- 5183 Mar, [facility] [place] [facility] [address] [id number] [place] [address]- 113[address] Mar, [facility] [address] [id number] [place] [address], [place] [address]- [address] Feb, [facility] [place] [facility] [address] [id number] [place] [address]- [address] Feb, [facility] [address] [id number] [place] [address]- 74[address] Feb, [facility] [place] [facility] [address] [id number] [place] [address]- 67[address] Jan, [facility] [place] [facility] [address] [id number] [place] [address]- [address] Jan, [facility] [place] [facility] [address] [facility] [id number] [place] [address] 284[address] Jan, [facility] [place] [facility] [address] [id number] [place] [address]- 56[address] Dec, [facility] [place] [facility] [address] [id number] [place] [address]- 6[address] Dec, [facility] [place] [facility] [address] [id number] [place] [address]- [address] Nov, [facility] [place] [facility] [address] [id number] [place] [address]- [address] Oct, [facility] [place] [facility] [address] [id number], [place] [address] Oct, [facility] [place] [facility] [address] [facility] [id number] [place] [address] Oct, [facility] [address] [facility] [id number], [place] [address] Sep, [facility] [address] [facility] [id number], [place] [address]- [address] Apr, [facility] [address] [facility] [id number], [place] [address]- [address] Feb, [facility] [address] [facility] [id number], [place] [address] 25[address] Jan, IMMUNIZATIONS No Known Immunizations SOCIAL HISTORY Never Assessed REASON FOR VISIT PALS IN-Zyprexa PLAN OF CARE VITAL SIGNS MEDICATIONS Unknown [...] 2/2 Benzos OD, pneumonia MRSA, MAYRA, Hypokalemia-- [facility] 12/20/2015 Hospitalization History COPD exacerbation, Asthma-[facility] 09/21/16 Hospitalization History COPD-[facility] 12/30/2016 Hospitalization History [facility]-last around 2006 or so. Hospitalization History [facility] for COPD x2 Mar 2017 Hospitalization History Upper GI bleed at apr 2017 Hospitalization History [facility], [place], operated by [facility]- COPD Exacerbation, diarrhea 05/23/2017 Hospitalization History COPD exacerbation-[facility] 06/13/17
--- OUTSIDE RECORDS SUMMARY | 2017-08-04 18:27 | XMS REPORT ---
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 Active Problem Thrush B37.0 Active 90891726 Problem TMJ (sprain of temporomandibular joint) S03.4XXA Active 48367306 Problem Tobacco abuse Z72.0 Active 92654408 Problem Non morbid obesity due to excess calories E66.09 Active 706400207 Problem Migraine G43.909 Active 80019605 Problem History of MRSA infection Z86.14 Active 082852719 Problem Knee pain, left M25.562 Active 47715430 Problem Obesity, unspecified obesity severity, unspecified obesity type E66.9 Active 187647363 Problem Migraine without aura and without status migrainosus, not intractable G43.009 Active 788936010 Problem Other emphysema J43.8 Active 09871448 Problem Chronic obstructive pulmonary disease with acute exacerbation J44.1 Active 622539616 Problem Intractable cyclical vomiting with nausea G43.A1 Active 80284993 Problem Chronic constipation K59.09 Active 451039985 Problem Acute bronchitis with COPD J44.0 Active [id number] Problem Encounter for tobacco use cessation counseling Z71.6 Active 512574388 Problem Methamphetamine use disorder, moderate, 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 Active 30899307 Problem Chronic bronchitis, unspecified chronic bronchitis type J42 Active 46883044 Problem Viral illness B34.9 Active 88354694 Problem Diabetes E11.9 Active 105510047 Problem Memory loss R41.3 Active 05795722 Problem Left knee pain M25.562 Active 41257308 Problem Dry mouth R68.2 Active 55544941 Problem Yeast vaginitis B37.3 Active 30209885 Problem Generalized anxiety disorder F41.1 Active 56445331 Problem Bipolar disorder with depression F31.30 Active 77284021 Problem Bipolar disorder, unspecified F31.9 Active 50137659 Problem Bipolar disorder, current episode depressed, severe, without psychotic features F31.4 Active 52443250 ALLERGIES Substance Reaction Event Type Date Status Buspar 10 Mg Tablet made legs shaky Non Drug Allergy Nov, Active Benzodiazepines NARC ALERT Broke narc contract Non Drug Allergy Nov Active Narcotic NARC ALERT Broke Narc contract Non Drug Allergy Nov, Active ENCOUNTERS Encounter Location Date Diagnosis [facility] [address] [address] July, [facility] [address] 30[address] Jun, Chronic obstructive pulmonary disease with acute exacerbation J44.1 ; Diabetes E11.9 and Tobacco abuse Z72.0 [facility] [address] 23447- 0913 Jun, [facility] [address] 77294- 9933 Jun, [facility] [address] 85[address]- 3253 May, [facility] [address] 8[address]- 3166 19 May, 2017 [facility] [id number] [place] [address]95 -3598 17 May, 2017 [facility] [address] 41705- 1901 16 May, 2017 [facility] [address] 30052- 7720 15 May, 2017 [facility] [address] [address]- 9784 May, Diarrhea, unspecified type R19.7 and Intractable cyclical vomiting with nausea G43.A1 [facility] [id number] [place] [address] 63787- 8697 May, [facility] [address] 29241- 8139 05 May, 2017 [facility] [address] [address]65- [address] 28 Apr, 2017 COPD exacerbation J44.1 ; Esophageal candidiasis B37.81 ; Other acute gastritis with hemorrhage K29.01 and Acute posthemorrhagic anemia D62 [place] [address] 6[address]- 4[address] Apr, Viral illness B34.9 and COPD exacerbation J44.1 [facility] [address] [address]9996 Apr, Shortness of breath R06.02 and Pneumonia of both lower lobes due to infectious organism J18.9 [facility] [address] [address] Mar, COPD with acute exacerbation J44.1 [place] [address] 29169- 1162 Mar, Chronic obstructive pulmonary disease with acute exacerbation J44.1 and Diabetes E11.9 [facility] [id number] [place] [address] 99288- 1614 Mar, [facility] [id number] [place] [address] 52872- 8363 Mar, [facility] [address] 34590 -[address] Mar, COPD exacerbation J44.1 [facility] [address] 84871- 3888 09 Mar, 2017 [facility] [address] 75670- 8563 Mar, Migraine G43.909 ; Hypokalemia E87.6 and Type 2 diabetes mellitus without complications E11.9 [place] [id number] [place] [address] 86825- 7515 Feb, [place] [id number] [place] [address] 56995- 0736 Feb, [place] [id number] [place] [address] 56622- 3854 Feb, Methamphetamine use disorder, moderate, 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 ; Major depressive disorder, recurrent, moderate F33.1 ; Anxiety disorder, unspecified F41.9 and Tobacco abuse Z72.0 [place] [id number] [place] [address] 87290- 5778 Jan, Major depressive disorder, recurrent, moderate F33.1 [place] [id number] [place] [address] 66451- 8748 Jan, [place] [id number] [place] [address] 82749- 3332 Jan, [place] [id number] [place] [address] 18157- 9160 Jan, Major depressive disorder, recurrent, moderate F33.1 [place] [id number] [place] [address] 27289- 9279 Jan, Major depressive disorder, recurrent, moderate F33.1 ; Anxiety disorder, unspecified F41.9 ; Methamphetamine use disorder, moderate, 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 and Tobacco abuse Z72.0 [place] [id number] [place] [address] 79910- 1427 07 Jan, 2017 [place] [id number] [place] [address] 59796- 8861 06 Jan, 2017 Chronic obstructive pulmonary disease with acute exacerbation J44.1 and Diabetes E11.9 [place] [id number] [place] [address] 02214- 4787 Jan, [facility] [id number] [place] [address] 78762- 2637 Jan, [facility] [id number] [place] [address] 90083- 3373 Dec, Acute respiratory failure with hypoxia J96.01 and Chronic bronchitis, unspecified chronic bronchitis type J42 [facility] [id number] [place] [address] 38379- 9681 Dec, [facility] [id number] [place] [address] [phone] Nov, Dental caries K02.9 and Dental examination Z01.20 [facility] [id number] [place] [address] 83445- 7136 Nov, Major depressive disorder, recurrent, moderate F33.1 ; Anxiety disorder, unspecified F41.9 and 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 [facility] [id number] [place] [address] [id number] Oct, Dental examination Z01.20 [facility] [id number] [place] [address] 88399- 0380 Oct, [facility] [id number] [place] [address] 42792- 9092 Oct, Diabetes E11.9 and Thrush B37.0 [facility] [id number] [place] [address] 70067- 7883 Oct, [facility] [id number] [place] [address] 49867- 9069 Oct, [facility] [id number] [place] [address] 32464- 6005 Oct, [facility] [id number] [place] [address] 12122- 8866 Sep, Major depressive disorder, recurrent, moderate F33.1 ; Anxiety disorder, unspecified F41.9 and Bipolar disorder, unspecified F31.9 [facility] [address] [address] Sep, Acute exacerbation of chronic obstructive pulmonary disease (COPD) J44.1 and Migraine G43.909 [facility] [address] [address] Sep, [facility] [id number] [place] [address] [phone] Sep, [facility] [id number] [place] [address] 51988- 0483 Sep, Acute exacerbation of chronic obstructive pulmonary disease (COPD) J44.1 [facility] [id number] [place] [address] 95608 -1586 Sep, Acute exacerbation of chronic obstructive pulmonary disease (COPD) J44.1 [facility] [id number] [place] [address] 38484- 6720 Aug, [facility] [id number] [place] [address] 52103- 1411 Aug, Major depressive disorder, recurrent, moderate F33.1 ; Anxiety disorder, unspecified F41.9 and 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 [facility] [address] [place] [address] 44112- 0800 Aug, Wheezing R06.2 ; Non morbid obesity due to excess calories E66.09 ; Migraine without aura and without status migrainosus, not intractable G43.009 and Tobacco abuse Z72.0 [facility] [id number] [place] [address] [phone] 14 Aug, 2016 Encounter for dental examination Z01.20 [facility] [address] [place] [address] 70279- 7944 02 Aug, 2016 Major depressive disorder, recurrent, moderate F33.1 ; Anxiety disorder, unspecified F41.9 and 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 [facility] [address] [address]- 8[address] July, [facility] [id number] [place] [address] 90726- 2221 July, [facility] [id number] [place] [address] 52312- 4267 July, [facility] [id number] [place] [address] 78142- 2197 July, Diabetes E11.9 [facility] [id number] [place] [address] 15220- 9959 Jun, Major depressive disorder, recurrent, moderate F33.1 [place] [id number] [place] [address] 01230- 5478 Jun, Major depressive disorder, recurrent, moderate F33.1 ; 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 ; Generalized anxiety disorder F41.1 and Bipolar disorder, unspecified F31.9 [facility] [address] [place] [address] 00703- 6248 Jun, Diabetes E11.9 ; Migraine G43.909 ; Thrush B37.0 and Wheezing R06.2 [facility] [address] [place] [address] [id number] Jun, Dental examination Z01.20 [facility] [id number] [place] [address] 10579- 2048 Jun, [facility] [id number] [place] [address] 61132- 8413 Jun, Major depressive disorder, recurrent, moderate F33.1 ; Anxiety disorder, unspecified F41.9 and 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 [facility] [id number] [place] [address] 63952- 7135 Jun, [facility] [id number] [place] [address] 09397- 8268 Jun, Wheezing R06.2 [facility] [id number] [place] [address] [phone] Jun, Dental caries K02.9 [place] [address] [place] 145750- 6193 Jun, Major depressive disorder, recurrent, moderate F33.1 ; Anxiety disorder, unspecified F41.9 and 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 [place] [address] [place] 145755- 4570 Jun, RLQ abdominal pain R10.31 ; Diabetes E11.9 ; Obesity, unspecified obesity severity, unspecified obesity type E66.9 ; Wheezing R06.2 and Abnormal urinalysis R82.[address] 45383- 6854 May, [place] [address] 11985- 0816 May, Well woman exam Z01.419 ; Breast cancer screening Z12.39 ; Cervical cancer screening Z12.4 ; Urinary frequency R35.0 ; Edema, unspecified type R60.9 and Chronic constipation K59.09 [place] [id number] [place] [address] 37843- 7295 May, Major depressive disorder, recurrent, moderate F33.1 ; Anxiety disorder, unspecified F41.9 and 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 [facility] [id number] [place] [address] [phone] May, Dental examination Z01.20 [place] [address] 39103- 5749 May, [place] [address] 61511- 5832 May, [place] [address] 82174- 0024 02 Mar, 2017 Chronic constipation K59.09 [place] [address] [address]- 9660 Apr, [place] [id number] [place] [address] 71402- 0281 Apr, Major depressive disorder, recurrent, moderate F33.1 ; Anxiety disorder, unspecified F41.9 and 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 [place] [id number] [place] [address] 79651- 2327 Apr, [place] [id number] [place] [address] 72095- 3429 Mar, Major depressive disorder, recurrent, moderate F33.1 [place] [id number] [place] [address] 39953- 3752 Mar, Major depressive disorder, recurrent, moderate F33.1 ; Generalized anxiety disorder F41.1 and Bipolar I disorder, most recent episode depressed with anxious distress F31.30 [place] [id number] [place] [address] 57305- 3747 Mar, Diabetes E11.9 ; Non morbid obesity due to excess calories E66.09 ; Breast cancer screening Z12.39 and Encounter for immunization Z23 [place] [address] [place] [address] 20798- 7152 Mar, Major depressive disorder, recurrent, moderate F33.1 ; Anxiety disorder, unspecified F41.9 and 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 [place] [id number] [place] [address] 92680- 4469 Mar, [place] [id number] [place] [address] 96209- 9056 Feb, Major depressive disorder, recurrent, moderate F33.1 ; Anxiety disorder, unspecified F41.9 and 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 [place] [address] [place] [address] 87920- 7779 Feb, [facility] [id number] [place] [address] 29989- 9050 Feb, [facility] [id number] [place] [address] 32782- 0273 Jan, Major depressive disorder, recurrent, moderate F33.1 ; Generalized anxiety disorder F41.1 and Bipolar disorder, current episode depressed, severe, without psychotic features F31.4 [facility] [id number] [place] [address] 93771- 3543 Jan, Major depressive disorder, recurrent, moderate F33.1 ; Anxiety disorder, unspecified F41.9 and 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 [facility] [id number] [place] [address] 73317- 6732 16 Jan, 2016 Bronchitis J40 [place] [id number] [place] [address] 09560- 9411 Jan, [facility] [id number] [place] [address] 87634- 7380 Jan, [facility] [id number] [place] [address] 16945- 7128 Jan, Elbow injury, right, initial encounter S59.901A ; Multiple contusions T14.8 and Cervical strain, acute, initial encounter S16.1XXA [facility] [id number] [place] [address] 61713- 2464 Dec, Major depressive disorder, recurrent, moderate F33.1 ; Generalized anxiety disorder F41.1 and Bipolar disorder with depression F31.30 [facility] [id number] [place] [address] 29222- 9967 Dec, [facility] [id number] [place] [address] 17531- 6864 Dec, [facility] [id number] [place] [address] 14148- 3330 Dec, [place] [address] [address]- 2106 Dec, [facility] [address] [place] [address] 57033- 0038 Dec, Yeast infection B37.9 [facility] [address] [address]- 3377 Dec, Pneumonia of both lungs due to methicillin resistant Staphylococcus aureus (MRSA), unspecified part of lung J15.212 and Benzodiazepine overdose, accidental or unintentional, subsequent encounter T42.4X1D [facility] [address] [address]- 8081 Dec, [place] [address] [place] [address] 33847- 0845 Dec, [place] [address] [place] [address] 41288- 6284 Dec, Knee pain, left M25.562 and Edema, unspecified type R60.9 [facility] [address] [address]- 6228 Dec, [facility] [address] [place] [address] 26624- 6738 Dec, Anxiety disorder, unspecified F41.9 and Bipolar disorder, unspecified F31.9 [place] [address] [place] [address] 51187- 1533 Nov, Major depressive disorder, recurrent, moderate F33.1 ; Anxiety disorder, unspecified F41.9 and 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 [facility] [address] [place] [address] 40559- 2006 Nov, [facility] [address] [place] [address] 24524- 4328 Nov, Migraine without aura and without status migrainosus, not intractable G43.009 [place] [id number] [place] [address] 27081- 6587 Nov, Migraine G43.909 [place] [id number] [place] [address] 12828- 8494 Nov, [place] [id number] [place] [address] 47846- 4761 Nov, Major depressive disorder, recurrent, moderate F33.1 ; Anxiety disorder, unspecified F41.9 and 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 [place] [id number] [place] [address] 40309- 5233 Oct, Chronic constipation K59.09 and Obesity, unspecified obesity severity, unspecified obesity type E66.9 [place] [id number] [place] [address] 15882- 7170 Oct, Obesity, unspecified obesity severity, unspecified obesity type E66.9 ; Chronic constipation K59.09 and Anxiety disorder, unspecified F41.9 [place] [id number] [place] [address] 96849- 1654 Oct, [place] [id number] [place] [address] 32238- 8090 Sep, Diabetes E11.9 ; Edema, unspecified type R60.9 ; Varicose vein of leg I83.90 and Obesity, unspecified obesity severity, unspecified obesity type E66.9 [place] [id number] [place] [address] 98962- 9950 Sep, Edema, unspecified type R60.9 ; Diabetes E11.9 and Knee pain , left M25.562 [place] [id number] [place] [address] 96381- 8894 Sep, [place] [id number] [place] [address] 26792- 7445 Sep, [place] [id number] [place] [address] 26806- 5937 Sep, Major depressive disorder, recurrent, moderate F33.1 ; Generalized anxiety disorder F41.1 and Bipolar disorder, unspecified F31.9 [facility] [address] [place] [address] 23916- 6280 30 Aug, 2015 Chondromalacia of left knee M94.262 [facility] [address] [place] [address] 85040- 3769 24 Aug, 2015 Major depressive disorder, recurrent, moderate F33.1 ; Anxiety disorder, unspecified F41.9 and 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 [facility] [address] [place] [address] 41052- 1129 Aug, [facility] [id number] [place] [address] 62690- 9622 Aug, Osteoarthritis of left knee M17.9 [facility] [id number] [place] [address] 91248- 9314 Aug, [facility] [address] [place] [address] 16907- 1577 July, Major depressive disorder, recurrent, moderate F33.1 ; Anxiety disorder, unspecified F41.9 and 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 [facility] [address] [place] [address] 26678- 9727 July, [facility] [address] [place] [address] 22819- 0667 July, Chronic constipation K59.09 [facility] [address] [place] [address] 93822- 9150 Jun, [facility] [id number] [place] [address] 15272- 0252 Jun, [facility] [id number] [place] [address] 70723- 5622 14 Jun, 2015 Osteoarthritis of left knee M17.9 [facility] [id number] [place] [address] 98795- 9861 Jun, [place] [id number] [place] [address] 01997- 3208 Jun, Generalized anxiety disorder F41.1 ; Bipolar disorder, unspecified F31.9 and Major depressive disorder, recurrent, moderate F33.1 [place] [id number] [place] [address] 95816- 9973 Jun, Migraine G43.909 [place] [id number] [place] [address] 06641- 6461 Jun, Left knee pain M25.562 ; Chronic constipation K59.09 ; Dry mouth R68.2 ; Yeast vaginitis B37.3 and Memory loss R41.3 [place] [id number] [place] [address] 35055- 3789 Jun, [place] [address] 83531- 5507 May, [place] [id number] [place] [address] 61721- 8419 May, [place] [address] 76255- 1775 May, [place] [id number] [place] [address] 03570- 3604 May, [place] [address] 45813- 3784 May, Acute bronchitis with COPD J44.0 ; Knee pain, left M25.562 and Encounter for tobacco use cessation counseling Z71.6 [place] [address] 02333- 0371 May, [place] [id number] [place] [address] 77731- 7739 24 Apr, 2015 Diabetes E11.9 ; TMJ (sprain of temporomandibular joint) S03.4XXA ; Tobacco abuse Z72.0 ; Migraine G43.909 and Anxiety F41.9 [facility] [address] [place] [address] 14759- 8434 Apr, Generalized anxiety disorder F41.1 and Bipolar disorder, unspecified F31.9 [facility] [id number] [place] [address] 21865- 8333 Apr, Major depressive disorder, recurrent, moderate F33.1 ; Anxiety disorder, unspecified F41.9 and 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 [facility] [id number] [place] [address] 98559- 1352 Apr, [facility] [id number] [place] [address] 14227- 7424 Mar, [facility] [id number] [place] [address] 54511- 2137 Feb, [facility] [id number] [place], [place] [address] 02689- 5840 Feb, Major depressive disorder, recurrent, moderate F33.1 ; Anxiety disorder, unspecified F41.9 and 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 [facility] [id number] [place] [address] 73776- 0680 Feb, [facility] [id number] [place] [address] 59810- 7098 Feb, Generalized anxiety disorder F41.1 and Bipolar disorder, unspecified F31.9 [facility] [id number] [place] [address] 47587- 9266 Jan, [facility] [id number] [place] [address] 80028- 7988 Jan, [facility] [id number] [place] [address] 57725- 5332 13 Jan, 2015 Bipolar disorder, unspecified F31.9 and Generalized anxiety disorder F41.1 [facility] [id number] [place] [address] 69869- 2828 14 Dec, 2014 [facility] [address] 97008- 5258 Dec, Bipolar disorder, unspecified F31.9 and Generalized anxiety disorder F41.1 [facility] [id number] [place] [address] 79279- 5329 Dec, Generalized anxiety disorder F41.1 and Major depressive disorder, recurrent, moderate F33.1 [facility] [id number] [place] [address] 83410- 6413 Oct, Headache 784.0 ; Cough 786.2 ; Vomiting and diarrhea 787.03 and Dysuria 788.1 [facility] [id number] [place] [address] 55742- 5976 Aug, [facility] [address] 90273- 5699 Aug, Headache 784.0 and Shortness of breath 786.05 [facility] [id number] [place] [address] 46062- 2503 Aug, [facility] [id number] [place] [address] 52946- 6662 Aug, Migraine 346.90 [facility] [id number] [place] [address] 36815- 0600 14 Jun, 2014 [facility] [id number] [place] [address] 47822- 6511 Jun, [facility] [id number] [place] [address] 80233- 3202 May, [facility] [id number] [place] [address] 67491- 2868 May, [facility] [id number] [place] [address] 32311- 7653 May, [facility] [address] [place] [address]- 3530 12 May, 2014 [facility] [place] [facility] [address] [id number] [place] [address]- 3899 May, 2014 [facility] [place] [facility] [address] [id number] [place] [address]- 9384 May, 2014 [facility] [place] [facility] [address] [id number] [place] [address]- 8862 Apr, 2014 [facility] [place] [facility] [address] [id number] [place] [address]- 8912 Apr, 2014 [facility] [place] [facility] [address] [id number] [place] [address]- 4755 Apr, 2014 [facility] [place] [facility] [address] [facility] [id number] [place] [address]- 8204 Apr, 2014 [facility] [place] [facility] [address] [facility] [id number] [place] [address]- 9158 Apr, [facility] [place] [facility] [address] [id number] [place] [address]- 6723 Mar, [facility] [place] [facility] [address] [facility] [id number] [place] [address]- 0287 Mar, [facility] [place] [facility] [address] [facility] [id number] [place] [address]- 4000 Mar, [facility] [place] [facility] [address] [id number] [place] [address]- 4686 Mar, [facility] [place] [facility] [address] [id number] [place] [address]- 7174 Feb, [facility] [place] [facility] [address] [id number] [place] [address]- 6497 Feb, [facility] [place] [facility] [address] [facility] [id number] [place] [address]- 2114 Feb, [facility] [place] [facility] [address] [facility] [id number] [place] [address]- 0700 Feb, [facility] [place] [facility] [address] [id number] [place] [address]- 1994 Feb, [facility] [place] [facility] [address] [id number] [place] [address]- 9632 Feb, [facility] [place] [facility] [address] [id number] [place] [address]- 3001 Feb, [facility] [place] [facility] [address] [id number] [place] [address]- 0711 Feb, [facility] [place] [facility] [address] [id number] [place] [address]- 9233 Feb, [facility] [place] [facility] [address] [id number] [place] [address]- 2460 Feb, [facility] [place] [facility] [address] [id number] [place] [address]- 3625 Feb, [facility] [place] [facility] [address] [id number] [place] [address]- 4508 Feb, [facility] [place] [facility] [address] [id number] [place] [address]- 6637 Jan, [facility] [place] [facility] [address] [id number] [place] [address]- 5217 Jan, [facility] [place] [facility] [address] [id number] [address]- 6870 Dec, [facility] [place] [facility] [address] [id number] [address]- 3441 Dec, [facility] [place] [facility] [address] [id number] [place] [address]- 9451 Dec, [facility] [place] [facility] [address] [id number] [place] [address]- 4437 Dec, [facility] [place] [facility] [address] [id number] 1538 Dec, [facility] [place] [facility] [address] [id number] [address]- 8409 Dec, [facility] [place] [facility] [address] [id number] [place] [address]- 8982 Sep, [facility] [place] [facility] [address] [id number] [place] [address]- 9236 Sep, [facility] [place] [facility] [address] [id number] [place] [address]- 6212 Sep, [facility] [place] [facility] [address] [id number] [place] [address]- 2095 Sep, [facility] [place] [facility] [address] [id number] [place] [address]- 0301 Sep, [facility] [place] [facility] [address] [id number] [place] [address]- 3632 Sep, [facility] [place] [facility] [address] [id number] [place] [address]- 1986 Sep, [facility] [place] [facility] [address] [id number] [place] [address]- 8472 Sep, [facility] [place] [facility] [address] [id number] [place] [address]- 4646 Sep, [facility] [place] [facility] [address] [id number] [place] [address]- 1853 Sep, [facility] [place] [facility] [address] [id number] [place] [address]- 9574 Aug, [facility] [place] [facility] [address] [id number] [place] [address]- 7490 Aug, [facility] [place] [facility] [address] [id number] [place] [address]- 7068 Aug, [facility] [place] [facility] [address] [id number] [place] [address]- 4002 Aug, [facility] [place] [facility] [address] [id number] [place] [address]- 2555 Aug, [facility] [place] [facility] [address] [id number] [place] [address]- 5219 Aug, [facility] [place] [facility] [address] [id number] [place] [address]- 5403 Aug, [facility] [place] [facility] [address] [id number] [place] [address]- 1335 Aug, [facility] [place] [facility] [address] [id number] [place] [address]- 6214 Aug, [facility] [place] [facility] [address] [id number] [place] [address]- 6809 Aug, [facility] [place] [facility] [address] [id number] [place] [address]- 3946 Aug, [facility] [place] [facility] [address] [id number] [place] [address]- 4614 Aug, [facility] [place] [facility] [address] [id number] [place] [address]- 7800 Aug, [facility] [place] [facility] [address] [id number] [place] [address]- 8489 July, [facility] [place] [facility] [address] [id number] [place] [address]- 9861 July, [facility] [place] [facility] [address] [id number] [place] [address]- 7017 July, [facility] [place] [facility] [address] [id number] [place] [address]- 5032 July, [facility] [place] [facility] [address] [id number] [place] [address]- 0067 July, [facility] [place] [facility] [address] [id number] [place] [address]- 6989 July, [facility] [place] [facility] [address] [id number] [place] [address]- 1672 July, [facility] [place] [facility] [address] [id number] [place] [address]- 5874 23 Jun, 2013 [facility] [place] [facility] [address] [id number] [place] [address]- 6491 23 Jun, 2013 [facility] [place] [facility] [address] [id number] [place] [address]- 5333 18 Jun, 2013 [facility] [place] [facility] [address] [id number] [place] [address]- 8991 16 Jun, 2013 [facility] [place] [facility] [address] [id number] [place] [address]- 2979 16 Jun, 2013 [facility] [place] [facility] [address] [id number] [place] [address]- 4803 Jun, [facility] [place] [facility] [address] [id number] [place] [address]- 1665 08 Jun, 2013 [facility] [place] [facility] [address] [id number] [place] [address]- 5037 17 May, 2013 [facility] [place] [facility] [address] [id number] [place] [address]- 3323 17 May, 2013 [facility] [place] [facility] [address] [id number] [place] [address]- 7412 14 May, 2013 [facility] [place] [facility] [address] [id number] [place] [address]- 4884 14 May, 2013 [facility] [place] [facility] [address] [id number] [place] [address]- 5586 13 May, 2013 [facility] [place] [facility] [address] [id number] [place] [address]- 7956 13 May, 2013 [facility] [place] [facility] [address] [id number] [place] [address]- 1263 10 May, 2013 [facility] [place] [facility] [address] [id number] [place] [address]- 8081 10 May, 2013 [facility] [place] [facility] [address] [id number] [place] [address]- 5653 07 May, 2013 [facility] [place] [facility] [address] [id number] [place] [address]- 9929 Apr, [facility] [place] [facility] [address] [id number] [place] [address]- 0065 Apr, [facility] [place] [facility] [address] [id number] [place] [address]- 5536 18 Apr, 2013 [facility] [place] [facility] [address] [id number] [place] [address]- 0726 Apr, [facility] [place] [facility] [address] [id number] [place] [address]- 7591 Apr, [facility] [place] [facility] [address] [id number] [place] [address]- 4246 Apr, [facility] [place] [facility] [address] [id number] [place] [address]- 8867 Apr, [facility] [place] [facility] [address] [id number] [place] [address]- 4573 Apr, [facility] [place] [facility] [address] [id number] [place] [address]- 6514 Apr, [facility] [place] [facility] [address] [facility] [id number] [place] [address]- 7719 Apr, [facility] [place] [facility] [address] [facility] [id number] [place] [address]- 0365 Mar, [facility] [place] [facility] [address] [id number] [place] [address]- 1687 Mar, [facility] [place] [facility] [address] [id number] [place] [address]- 8088 Mar, [facility] [place] [facility] [address] [id number] [place] [address]- 5547 Mar, [facility] [place] [facility] [address] [id number] [place] [address]- 2279 Mar, [facility] [place] [facility] [address] [id number] [place] [address]- 8988 Mar, [facility] [place] [facility] [address] [id number] [place] [address]- 2270 Mar, [facility] [place] [facility] [address] [id number] [place] [address]- 0457 Mar, [facility] [place] [facility] [address] [facility] [id number] [place] [address]- 3840 Feb, [facility] [place] [facility] [address] [id number] [place] [address]- 6755 Feb, [facility] [place] [facility] [address] [id number] [place] [address]- 4796 Jan, [facility] [place] [facility] [address] [id number] [place] [address]- 6464 Jan, [facility] [place] [facility] [address] [id number] [place] [address]- 3898 Jan, [facility] [place] [facility] [address] [id number] [address]- 6419 15 Jan, 2013 [facility] [place] [facility] [address] [id number][place] [address]- 9275 Jan, [facility] [place] [facility] [address] [id number] [address]- 9275 Jan, [facility] [place] [facility] [address] [id number] [address]- 5421 05 Jan, 2013 [facility] [place] [facility] [address] [id number] [address]- 3724 05 Jan, 2013 [facility] [place] [facility] [address] [id number] [address]- 5929 13 Dec, 2012 [facility] [place] [facility] [address] [id number] [address]- 4527 10 Dec, 2012 [facility] [place] [facility] [address] [id number] [address]- 2253 10 Dec, 2012 [facility] [place] [facility] [address] [id number] [place] [address]- 5491 20 Nov, 2012 [facility] [address] [id number] [place] [address]- 5856 13 Nov, 2012 [facility] [address] [id number] [place] [address]- 4906 12 Nov, 2012 [facility] [address] [id number] [place] [address]- 2037 Nov, [facility] [address] [id number] [place] [address] 2540 Nov, [facility] [address] [id number] [place] [address]- 2085 Nov, [facility] [address] [id number] [place] [address]- 0358 Oct, [facility] [address] [id number] [place] [address]- 2391 Oct, [facility] [address] [id number] [place] [address]- 7978 Sep, [facility] [address] [id number] [place] [address]- 1829 Sep, [facility] [address] [id number] [place] [address]- 7371 Sep, [facility] [address] [id number] [place] [address]- 2231 Sep, [facility] [address] [id number] [place] [address]- 4037 Sep, [facility] [place] [facility] [address] [id number] [place] [address]- 9045 Sep, [facility] [place] [facility] [address] [id number] [place] [address]- 7642 Sep, [facility] [address] [id number] [place] [address]- 2029 Aug, [facility] [place] [facility] [address] [id number] [place] [address]- 5877 14 Aug, 2012 [facility] [address] [id number] [place] [address]- 7220 13 Aug, 2012 [facility] [address] [id number] [place] [address]- 7034 12 Aug, 2012 [facility] [place] [facility] [address] [id number] [place] [address]- 7828 11 Aug, 2012 [facility] [address] [id number] [place] [address]- 2498 Aug, [facility] [address] [id number] [place] [address]- 6317 July, [facility] [address] [id number] [place] [address]- 5905 July, [facility] [address] [id number] [place] [address]- 9867 July, [facility] [address] [id number] [place] [address]- 8549 July, [facility] [address] [id number] [place] [address]- 6546 July, [facility] [place] [facility] [address] [id number] [place] [address]- 6075 July, [facility] [place] [facility] [address] [id number] [place] [address]- 4274 Jun, [facility] [place] [facility] [address] [id number] [place] [address]- 9079 Jun, [facility] [place] [facility] [address] [id number] [place] [address]- 4667 15 Jun, 2012 [facility] [place] [facility] [address] [id number] [place] [address]- 1562 Jun, [facility] [place] [facility] [address] [id number] [place] [address]- 8660 Jun, [facility] [place] [facility] [address] [id number] [place] [address]- 8594 Jun, [facility] [place] [facility] [address] [facility] [id number] [place] [address]- 6899 Jun, [facility] [place] [facility] [address] [facility] [id number] [place] [address]- 2083 07 May, 2012 [facility] [place] [facility] [address] [facility] [id number] [place] [address]- 4383 04 May, 2012 [facility] [place] [facility] [address] [facility] [id number] [place] [address]- 5941 26 Apr, 2012 [facility] [place] [facility] [address] [facility] [id number] [place] [address]- 5198 Apr, 2012 [facility] [place] [facility] [address] [id number] [place] [address]- 3319 18 Apr, 2012 [facility] [place] [facility] [address] [facility] [id number] [place] [address]- 9222 18 Apr, 2012 [facility] [place] [facility] [address] [facility] [id number] [place] [address]- 4260 12 Apr, 2012 [facility] [place] [facility] [address] [facility] [id number] [place] [address]- 4025 08 Apr, 2012 [facility] [place] [facility] [address] [facility] [id number] [place] [address]- 3861 07 Apr, 2012 [facility] [place] [facility] [address] [facility] [id number] [place] [address]- 2758 07 Apr, 2012 [facility] [place] [facility] [address] [facility] [id number] [place] [address]- 8121 06 Apr, 2012 [facility] [place] [facility] [address] [facility] [id number] [place] [address]- 4527 06 Apr, 2012 [facility] [place] [facility] [address] [id number] [place] [address]- 4228 Apr, [facility] [address] [id number] [place] [address]- 6408 Mar, [facility] [address] [id number] [place] [address]- 6568 Mar, [facility] [address] [id number] [place] [address]- 6262 Mar, [facility] [address] [id number] [place] [address]- 3886 Mar, [facility] [address] [id number] [place] [address]- 6297 Mar, [facility] [address] [id number] [place] [address]- 7455 Mar, [facility] [address] [id number] [place] [address]- 3700 Mar, [facility] [address] [id number] [place] [address]- 7379 Mar, [facility] [address] [id number] [place] [address]- 2695 Mar, [facility] [address] [id number] [place] [address]- 3922 Mar, [facility] [address] [id number] [place] [address]- 7154 Mar, [facility] [address] [id number] [place] [address] 3527 Mar, [facility] [place] [facility] [address] [id number] [place] [address] Mar, [facility] [place] [facility] [address] [id number] [place] [address] Feb, [facility] [place] [facility] [address] [id number] [place] [address] 1670 Feb, [facility] [address] [id number] [place] [address] 18 Feb, 2012 [facility] [place] [facility] [address] [id number] [place] [address] 18 Feb, 2012 [facility] [place] [facility] [address] [id number] [place] [address] 28[address] Feb, [facility] [place] [facility] [address] [id number] [place] [address] Feb, [facility] [place] [facility] [address] [id number] [place] [address]646 10 Feb, 2012 [facility] [place] [facility] [address] [id number] [place] [address] Feb, [facility] [place] [facility] [address] [id number] [place] [address]- 9216 Feb, [facility] [place] [facility] [address] [id number] [place] [address]- 9266 Feb, [facility] [place] [facility] [address] [id number] [place] [address]- [address] Feb, [facility] [place] [facility] [address] [id number] [place] [address]- 9[address] Feb, [facility] [place] [facility] [address] [id number] [place] [address]- [address]196 Feb, [facility] [place] [facility] [address] [id number] [place] [address]- 2626 Feb, [facility] [place] [facility] [address] [id number] [place] [address]- 90[address] Feb, [facility] [place] [facility] [address] [id number] [place] [address] Jan, [facility] [place] [facility] [address] [id number] [place] [address]- [address] Jan, [facility] [place] [facility] [address] [id number] [place] [address]- 87[address] Jan, [facility] [place] [facility] [address] [id number] [place] [address]- [address] Jan, [facility] [place] [facility] [address] [id number] [place] [address]- [address] Dec, [facility] [place] [facility] [address] [id number] [place] [address]- [address] Dec, [facility] [place] [facility] [address] [id number] [place] [address]- [address] Dec, [facility] [place] [facility] [address] [id number] [place] [address]- 269[address] Dec, [facility] [place] [facility] [address] [id number] [place] [address]- 6614 Dec, [facility] [place] [facility] [address] [id number] [place] [address]- 3075 Dec, [facility] [place] [facility] [address] [id number] [place] [address]- [address]152 Dec, [facility] [place] [facility] [address] [id number] [place] [address]- 4667 Dec, [facility] [place] [facility] [address] [id number] [place] [address]- [address] Dec, [facility] [place] [facility] [address] [id number] [place] [address] Dec, [facility] [place] [facility] [address] [id number] [place] [address]- 1129 Dec, [facility] [place] [facility] [address] [id number] [place] [address]- 8205 Nov, [facility] [place] [facility] [address] [id number] [place] [address]- [address] 24 Sep2011 [facility] [place] [facility] [address] [id number] [place] [address] 20 Nov, 2011 [facility] [place] [facility] [address] [id number] [place] [address]- [address]653 19 Sep, 2011 [facility] [place] [facility] [address] [id number] [place] [address]- 7436 17 Sep, 2011 [facility] [place] [facility] [address] [id number] [place] [address]- 9046 16 Sep, 2011 [facility] [place] [facility] [address] [id number] [place] [address] 2546 14 Sep, 2011 [facility] [place] [facility] [address] [id number] [place] [address]- 0146 13 Sep, 2011 [facility] [place] [facility] [address] [id number] [place] [address]- [address]116 12 Sep, 2011 [facility] [place] [facility] [address] [id number] [place] [address]- [address]606 07 Sep, 2011 [facility] [place] [facility] [address] [id number] [place] [address]- 6540 06 Sep, 2011 [facility] [place] [facility] [address] [id number] [place] [address]- [address] 06 Sep, 2011 [facility] [place] [facility] [address] [id number] [place] [address]- 6788 05 Nov, 2011 [facility] [place] [facility] [address] [id number] [place] [address]- 6707 29 Oct, 2011 [facility] [place] [facility] [address] [id number] [place] [address]- 6394 29 Oct, 2011 [facility] [place] [facility] [address] [id number] [address] Oct, [facility] [place] [facility] [address] [id number] [place] [address] 2542 Oct, [facility] [place] [facility] [address] [id number] [place] [address]- 7940 Oct, [facility] [place] [facility] [address] [id number] [place] [address]- 1797 Oct, [facility] [place] [facility] [address] [id number] [place] [address]- 0886 Oct, [facility] [place] [facility] [address] [id number] [place] [address]- [address]106 Oct, [facility] [place] [facility] [address] [id number] [place] [address]- 5436 Oct, [facility] [place] [facility] [address] [id number] [place] [address]- 0358 Oct, [facility] [place] [facility] [address] [id number] [place] [address]- 7698 Oct, [facility] [place] [facility] [address] [id number] [place] [address]- 6914 Sep, [facility] [place] [facility] [address] [id number] [place] [address]- 7875 Sep, [facility] [place] [facility] [address] [id number] [place] [address]- 9344 Sep, [facility] [place] [facility] [address] [id number] [place] [address]- 5513 Sep, [facility] [place] [facility] [address] [id number] [place] [address]- 4044 Sep, [facility] [place] [facility] [address] [id number] [place] [address]- 9914 Sep, [facility] [place] [facility] [address] [id number] [place] [address]- 6448 Aug, [facility] [place] [facility] [address] [id number] [place] [address]- 3449 July, [facility] [place] [facility] [address] [id number] [place] [address]- 6595 July, [facility] [place] [facility] [address] [id number] [place] [id number] [address] Jun, [facility] [place] [facility] [address] [id number] [place] [address]- 2224 Jun, [facility] [place] [facility] [address] [id number] [place] [address]- 2284 11 Jun, 2011 [facility] [place] [facility] [address] [id number] [place] [address]- [address]336 Jun, [facility] [place] [facility] [address] [id number] [place] [address] Jun, [facility] [place] [facility] [address] [id number] [place] [address] Jun, [facility] [address] [id number] [place] [address] Jun, [facility] [place] [facility] [address] [id number] [place] [address] Jun, [facility] [address] [id number] [place] [address] Jun, [facility] [address] [id number] [place] [address] Jun, [facility] [place] [facility] [address] [id number] [place] [address] Jun, [facility] [place] [facility] [address] [id number] [place] [address] May, [facility] [place] [facility] [address] [id number] [place] [address] 16 May, 2011 [facility] [place] [facility] [address] [id number] [place] [address] 14 May, 2011 [facility] [place] [facility] [address] [id number] [place] [address] 06 May, 2011 [facility] [place] [facility] [address] [id number] [place] [address] Apr, [facility] [place] [facility] [address] [id number] [place] [address] Apr, [facility] [place] [facility] [address] [id number] [place] [address] Apr, [facility] [address] [id number] [place] [address] Apr, [facility] [place] [facility] [address] [id number] [place] [address] Apr, [facility] [address] [id number] [place] [address] Apr, [facility] [place] [facility] [address] [id number] [place] [address] Apr, [facility] [address] [id number] [place] [address]398 Apr, [facility] [address] [id number] [place] [address] Mar, [facility] [address] [id number] [place] [address] Mar, [facility] [address] [id number] [place] [address] Mar, [facility] [place] [facility] [address] [id number] [place] [address] Mar, [facility] [address] [id number] [place] [address] 17 Mar, 2011 [facility] [address] [id number] [place] [address] Mar, [facility] [place] [facility] [address] [id number] [place] [address] Mar, [facility] [place] [facility] [address] [id number] [place] [address] Mar, [facility] [place] [facility] [address] [id number] [place] [address] Mar, [facility] [place] [facility] [address] [id number] [place] [address] Mar, [facility] [place] [facility] [address] [id number] [place] [address] Mar, [facility] [address] [id number] [place] [address] Mar, [facility] [address] [id number] [place] [address] Mar, [facility] [address] [id number] [place] [address] Mar, [facility] [address] [id number] [place] [address] Mar, [facility] [address] [id number] [place] [address] Mar, [facility] [address] [id number] [place] [address] Feb, [facility] [address] [id number] [place] [address] Feb, [facility] [address] [id number] [place] [address] Feb, [facility] [address] [id number] [place] [address] Jan, [facility] [address] [id number] [place] [address] Jan, [facility] [address] [id number] [address] Jan, [facility] [place] [facility] [address] [id number] [place] [address] Dec, [facility] [place] [facility] [address] [id number] [place] [address] Dec, [facility] [place] [facility] [address] [id number] [place] [address] 16 Nov, 2010 [facility] [place] [facility] [address] [id number] [address] Oct, [facility] [address] [facility] [id number] [place] [address] Oct, [facility] [address] [facility] [id number] [address] Oct, [facility] [address] [facility] [id number], [place] [address] Sep, [facility] [address] [facility] [id number][place] [address] Apr, [facility] [address] [facility] [id number][place] [address] Feb, [facility] [address] [facility] [id number][place] [address] Jan, IMMUNIZATIONS No Known Immunizations SOCIAL HISTORY Never Assessed REASON FOR VISIT surg. TE PLAN OF CARE Activity Details Follow Up prn Reason:restorative VITAL SIGNS Height 70 in 2016-12-02 Blood pressure systolic 150 mmHg 2016-12-02 Blood pressure diastolic 102 mmHg 2016-12-02 MEDICATIONS Medication Instructions Dosage Frequency Start Date End Date Duration Status Advair Diskus 250 mcg-50 mcg Inhalation Twice a day 1 puff 12h Dec, Active Ventolin HFA 90 mcg/actuation Inhalation every 4 hrs 2 puffs as needed 4h Dec, Active Spiriva HandiHaler 18 MCG Inhalation Once a day 1 capsule 24h Active RESULTS No Results PROCEDURES Procedure Date Ordered Result Body Site INTRAORL-PERIAPICAL 1 FILM 14600 Dec 02, 2016 EXTRAC ERUPTED TOOTH/EXPOSED ROOT Dec 02, 2016 SURG REMOVAL ERUPTED TOOTH Dec 02, 2016 INSTRUCTIONS MEDICATIONS ADMINISTERED No Known Medications MEDICAL (GENERAL) HISTORY Type Description Date Medical History COPD Medical History asthma Medical History heart cath Medical History Social phobia Medical History MRSA in right lung Medical History diabetes Surgical History heart cath 03/2015 Hospitalization History for surgeries Hospitalization History AMS 2/2 Benzos OD, pneumonia MRSA, [facility], Hypokalemia-- [facility] 12/20/2015 Hospitalization History COPD exacerbation, Asthma-[facility] 09/21/16 Hospitalization History COPD-[facility] 12/30/2016 Hospitalization History OSH and story for inpatient-last around 2006 or so. Hospitalization History [facility] for COPD x2 Mar 2017 Hospitalization History Upper GI bleed at apr 2017 Hospitalization History [facility]- COPD Exacerbation, diarrhea 05/23/2017 Hospitalization History COPD exacerbation-[facility] 06/13/17
--- OUTSIDE RECORDS SUMMARY | 2017-08-04 18:30 | XMS REPORT ---
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 Active Problem Thrush B37.0 Active 68179165 Problem TMJ (sprain of temporomandibular joint) S03.4XXA Active 91101239 Problem Tobacco abuse Z72.0 Active 57799873 Problem Non morbid obesity due to excess calories E66.09 Active 363344393 Problem Migraine G43.909 Active 18389962 Problem History of MRSA infection Z86.14 Active 971278091 Problem Knee pain, left M25.562 Active 85166693 Problem Obesity, unspecified obesity severity, unspecified obesity type E66.9 Active 657357312 Problem Migraine without aura and without status migrainosus, not intractable G43.009 Active 636795917 Problem Other emphysema J43.8 Active 67827076 Problem Chronic obstructive pulmonary disease with acute exacerbation J44.1 Active 702325456 Problem Intractable cyclical vomiting with nausea G43.A1 Active 92972305 Problem Chronic constipation K59.09 Active 128995289 Problem Acute bronchitis with COPD J44.0 Active [id number] Problem Encounter for tobacco use cessation counseling Z71.6 Active 468022376 Problem Methamphetamine use disorder, moderate, 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 Active 15779249 Problem Chronic bronchitis, unspecified chronic bronchitis type J42 Active 77756849 Problem Viral illness B34.9 Active 97548666 Problem Diabetes E11.9 Active 099310233 Problem Memory loss R41.3 Active 83924403 Problem Left knee pain M25.562 Active 06441832 Problem Dry mouth R68.2 Active 07907143 Problem Yeast vaginitis B37.3 Active 80415110 Problem Generalized anxiety disorder F41.1 Active 00606921 Problem Bipolar disorder with depression F31.30 Active 21108160 Problem Bipolar disorder, unspecified F31.9 Active 75770355 Problem Bipolar disorder, current episode depressed, severe, without psychotic features F31.4 Active 60874485 ALLERGIES Substance Reaction Event Type Date Status Buspar 10 Mg Tablet made legs shaky Non Drug Allergy Sep, Active Benzodiazepines NARC ALERT Broke narc contract Non Drug Allergy Sep Active Narcotic NARC ALERT Broke Narc contract Non Drug Allergy Sep, Active ENCOUNTERS Encounter Location Date Diagnosis [facility] [id number] [place] [address] 24830- 1168 July, [facility] [address] 41085- 2516 Jun, Chronic obstructive pulmonary disease with acute exacerbation J44.1 ; Diabetes E11.9 and Tobacco abuse Z72.0 [facility] [id number] [place] [address] 40383- 9078 Jun, [facility] [id number] [place] [address] 16171- 3322 Jun, [facility] [id number] [place] [address] 36321- 5189 May, [facility] [id number] [place] [address] 50114- 6518 May, [facility] [id number] [place] [address] 14921 -9345 17 May, 2017 [facility] [address] 58269- 9389 16 May, 2017 [facility] [id number] [place] [address] 24330- 0631 May, [facility] [address] [place] [address] 14 May, 2017 Diarrhea, unspecified type R19.7 and Intractable cyclical vomiting with nausea G43.A1 [facility] [address] 05992- 9821 12 May, 2017 [place] [address] 96923- 0355 05 May, 2017 [place] [address] 23414- 9017 Apr, COPD exacerbation J44.1 ; Esophageal candidiasis B37.81 ; Other acute gastritis with hemorrhage K29.01 and Acute posthemorrhagic anemia D62 [place] [address] 86896- 8503 Apr, Viral illness B34.9 and COPD exacerbation J44.1 [facility] [address] 73[address] -7621 Apr, Shortness of breath R06.02 and Pneumonia of both lower lobes due to infectious organism J18.9 [facility] [place] [address] 89334 -1526 Mar, COPD with acute exacerbation J44.1 [place] [address] 44603- 4799 Mar, Chronic obstructive pulmonary disease with acute exacerbation J44.1 and Diabetes E11.9 [place] [address] 31236- 6419 Mar, [place] [address] 73368- 4136 Mar, [facility] [address] 24942 -7173 Mar, COPD exacerbation J44.1 [place] [address] 62320- 5653 Mar, [place] [id number] [place] [address] 37318- 3064 Mar, Migraine G43.909 ; Hypokalemia E87.6 and Type 2 diabetes mellitus without complications E11.9 [place] [id number] [place] [address] 78771- 7407 Feb, [place] [id number] [place] [address] 96911- 3360 Feb, [place] [id number] [place] [address] 78083- 1633 Feb, Methamphetamine use disorder, moderate, 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 ; Major depressive disorder, recurrent, moderate F33.1 ; Anxiety disorder, unspecified F41.9 and Tobacco abuse Z72.0 [place] [id number] [place] [address] 05801- 6884 Jan, Major depressive disorder, recurrent, moderate F33.1 [place] [id number] [place] [address] 78272- 0834 Jan, [place] [id number] [place] [address] 71953- 9515 Jan, [place] [id number] [place] [address] 89808- 8738 Jan, Major depressive disorder, recurrent, moderate F33.1 [place] [id number] [place] [address] 25066- 1966 Jan, Major depressive disorder, recurrent, moderate F33.1 ; Anxiety disorder, unspecified F41.9 ; Methamphetamine use disorder, moderate, 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 and Tobacco abuse Z72.0 [place] [id number] [place] [address] 27783- 0701 07 Jan, 2017 [place] [id number] [place] [address] 09306- 4662 06 Jan, 2017 Chronic obstructive pulmonary disease with acute exacerbation J44.1 and Diabetes E11.9 [place] [address] [address]40 Jan, [facility] [id number] [place] [address] 23105- 5768 Jan, [facility] [id number] [place] [address] 50854- 6701 Dec, Acute respiratory failure with hypoxia J96.01 and Chronic bronchitis, unspecified chronic bronchitis type J42 [facility] [id number] [place] [address] 93081- 4416 Dec, [facility] [address] [place] [address] [id number] Nov, Dental caries K02.9 and Dental examination Z01.20 [facility] [id number] [place] [address] 33965- 0837 Nov, Major depressive disorder, recurrent, moderate F33.1 ; Anxiety disorder, unspecified F41.9 and 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 [facility] [address] [place] [address] [id number] Oct, Dental examination Z01.20 [facility] [id number] [place] [address] 79536- 7626 Oct, [facility] [id number] [place] [address] 34295- 0541 Oct, Diabetes E11.9 and Thrush B37.0 [facility] [address] [address] 5164 Oct, [facility] [address] [address]- 8726 Oct, [facility] [address] [place] [address] 36100- 4732 Oct, [facility] [address], [place] [address]- 8372 Sep, Major depressive disorder, recurrent, moderate F33.1 ; Anxiety disorder, unspecified F41.9 and Bipolar disorder, unspecified F31.9 [facility] [address] [place] [address] 00929- 9903 Sep, Acute exacerbation of chronic obstructive pulmonary disease (COPD) J44.1 and Migraine G43.909 [facility] [id number] [place] [address] 15612- 6821 Sep, [facility] [address] [id number] Sep, [facility] [id number] [place] [address] 06922- 2861 Sep, Acute exacerbation of chronic obstructive pulmonary disease (COPD) J44.1 [facility] [id number] [place] [address] 31255 -6479 Sep, Acute exacerbation of chronic obstructive pulmonary disease (COPD) J44.1 [facility] [id number] [place] [address] 25113- 5554 Aug, [facility] [id number] [place] [address] 61080- 0680 Aug, Major depressive disorder, recurrent, moderate F33.1 ; Anxiety disorder, unspecified F41.9 and 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 [facility] [id number] [place] [address] 17264- 6199 19 Aug, 2016 Wheezing R06.2 ; Non morbid obesity due to excess calories E66.09 ; Migraine without aura and without status migrainosus, not intractable G43.009 and Tobacco abuse Z72.0 [facility] [address] [place] [address] [id number] 14 Aug, 2016 Encounter for dental examination Z01.20 [facility] [id number] [place] [address] 31885- 1147 02 Aug, 2016 Major depressive disorder, recurrent, moderate F33.1 ; Anxiety disorder, unspecified F41.9 and 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 [facility] [address], [place] [address]- 0962 July, [facility] [address] [place] [address] 81279- 1686 July, [facility] [address] [place] [address] 78528- 6165 July, [facility] [id number] [place] [address] 27235- 6977 July, Diabetes E11.9 [facility] [address] [place] [address] 39171- 3203 Jun, Major depressive disorder, recurrent, moderate F33.1 [facility] [address] [place] [address] 26874- 6773 Jun, Major depressive disorder, recurrent, moderate F33.1 ; 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 ; Generalized anxiety disorder F41.1 and Bipolar disorder, unspecified F31.9 [facility] [address] [place] [address] 07721- 0487 Jun, Diabetes E11.9 ; Migraine G43.909 ; Thrush B37.0 and Wheezing R06.2 [facility] [address] [id number] Jun, Dental examination Z01.20 [facility] [address] [place] [address] 53757- 3332 Jun, [facility] [address] [place] [address] 52488- 1072 Jun, Major depressive disorder, recurrent, moderate F33.1 ; Anxiety disorder, unspecified F41.9 and 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 [facility] [address], [place] [address]- 4108 Jun, [facility] [id number] [place] [address] 78078- 8270 Jun, Wheezing R06.2 [facility] [id number] [place] [address] [phone] Jun, Dental caries K02.9 [facility] [address] 15506- 8551 Jun, Major depressive disorder, recurrent, moderate F33.1 ; Anxiety disorder, unspecified F41.9 and 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 [place] [address] 17555- 2249 Jun, RLQ abdominal pain R10.31 ; Diabetes E11.9 ; Obesity, unspecified obesity severity, unspecified obesity type E66.9 ; Wheezing R06.2 and Abnormal urinalysis R82.[address] 24958- 2340 May, [place] [address] 68018- 3912 May, Well woman exam Z01.419 ; Breast cancer screening Z12.39 ; Cervical cancer screening Z12.4 ; Urinary frequency R35.0 ; Edema, unspecified type R60.9 and Chronic constipation K59.09 [place] [address] 52973- 9056 May, Major depressive disorder, recurrent, moderate F33.1 ; Anxiety disorder, unspecified F41.9 and 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 [facility] [id number] [place] [address] [phone] May, Dental examination Z01.20 [place] [address] 51591- 5815 May, [place] [address] 18295- 0418 May, [place] [address] 76352- 8845 May, Chronic constipation K59.09 [place] [address] [place] [address] 29537- 6389 Apr, [place] [id number] [place] [address] 64264- 8298 Apr, Major depressive disorder, recurrent, moderate F33.1 ; Anxiety disorder, unspecified F41.9 and 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 [place] [id number] [place] [address] 17546- 8545 Apr, [place] [id number] [place] [address] 92712- 1889 Mar, Major depressive disorder, recurrent, moderate F33.1 [place] [id number] [place] [address] 75315- 6719 Mar, Major depressive disorder, recurrent, moderate F33.1 ; Generalized anxiety disorder F41.1 and Bipolar I disorder, most recent episode depressed with anxious distress F31.30 [place] [address] [place] [address] 95503- 4367 Mar, Diabetes E11.9 ; Non morbid obesity due to excess calories E66.09 ; Breast cancer screening Z12.39 and Encounter for immunization Z23 [place] [address] [place] [address] 07843- 6871 Mar, Major depressive disorder, recurrent, moderate F33.1 ; Anxiety disorder, unspecified F41.9 and 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 [place] [address], [place] [address]- 8306 Mar, [place] [id number] [place] [address] 61288- 3281 Feb, Major depressive disorder, recurrent, moderate F33.1 ; Anxiety disorder, unspecified F41.9 and 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 [place] [id number] [place] [address] 46184- 2428 Feb, [facility] [id number] [place] [address] 78940- 2939 Feb, [facility] [id number] [place] [address] 04651- 0348 Jan, Major depressive disorder, recurrent, moderate F33.1 ; Generalized anxiety disorder F41.1 and Bipolar disorder, current episode depressed, severe, without psychotic features F31.4 [place] [id number] [place] [address] 90633- 7315 18 Jan, 2016 Major depressive disorder, recurrent, moderate F33.1 ; Anxiety disorder, unspecified F41.9 and 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 [place] [id number] [place] [address] 83321- 6666 16 Jan, 2016 Bronchitis J40 [place] [id number] [place] [address] 95209- 2030 Jan, [place] [id number] [place] [address] 19762- 4062 Jan, [place] [id number] [place] [address] 85783- 6366 Jan, Elbow injury, right, initial encounter S59.901A ; Multiple contusions T14.8 and Cervical strain, acute, initial encounter S16.1XXA [place] [id number] [place] [address] 29036- 0656 Dec, Major depressive disorder, recurrent, moderate F33.1 ; Generalized anxiety disorder F41.1 and Bipolar disorder with depression F31.30 [place] [id number] [place] [address] 14907- 6165 Dec, [place] [id number] [place] [address] 02070- 8499 Dec, [facility] [id number] [place] [address] 33175- 2857 Dec, [facility] [address], [place] [address]- 6323 Dec, [place] [address] [place] [address] 95463- 6045 Dec, Yeast infection B37.9 [place] [address] [place] [address] 88003- 4074 Dec, Pneumonia of both lungs due to methicillin resistant Staphylococcus aureus (MRSA), unspecified part of lung J15.212 and Benzodiazepine overdose, accidental or unintentional, subsequent encounter T42.4X1D [place] [id number] [place] [address] 81602- 7404 Dec, [place] [address] [place] [address] 59926- 9587 Dec, [place] [id number] [place] [address] 06137- 2559 Dec, Knee pain, left M25.562 and Edema, unspecified type R60.9 [place] [address] [place] [address] 74883- 0792 Dec, [facility] [address] [place] [address] 65948- 2469 Dec, Anxiety disorder, unspecified F41.9 and Bipolar disorder, unspecified F31.9 [place] [address] [place] [address] 46504- 3756 Nov, Major depressive disorder, recurrent, moderate F33.1 ; Anxiety disorder, unspecified F41.9 and 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 [place] [address] [place] [address] 81857- 9754 Nov, [place] [address] [place] [address] 43534- 0593 Nov, Migraine without aura and without status migrainosus, not intractable G43.009 [place] [id number] [place] [address] 68754- 2928 Nov, Migraine G43.909 [place] [id number] [place] [address] 09964- 6645 Nov, [place] [id number] [place] [address] 34798- 1270 Nov, Major depressive disorder, recurrent, moderate F33.1 ; Anxiety disorder, unspecified F41.9 and 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 [place] [id number] [place] [address] 65519- 6459 Oct, Chronic constipation K59.09 and Obesity, unspecified obesity severity, unspecified obesity type E66.9 [place] [address] 38743- 4730 Oct, Obesity, unspecified obesity severity, unspecified obesity type E66.9 ; Chronic constipation K59.09 and Anxiety disorder, unspecified F41.9 [place] [id number] [place] [address] 91670- 4434 Oct, [place] [id number] [place] [address] 20325- 1351 Sep, Diabetes E11.9 ; Edema, unspecified type R60.9 ; Varicose vein of leg I83.90 and Obesity, unspecified obesity severity, unspecified obesity type E66.9 [place] [id number] [place] [address] 39293- 3088 Sep, Edema, unspecified type R60.9 ; Diabetes E11.9 and Knee pain , left M25.562 [place] [id number] [place] [address] 70913- 8066 Sep, [place] [id number] [place] [address] 60952- 4922 Sep, [place] [address] 32691- 8999 Sep, Major depressive disorder, recurrent, moderate F33.1 ; Generalized anxiety disorder F41.1 and Bipolar disorder, unspecified F31.9 [facility] [address] [place] [address] 86957- 1573 Aug, Chondromalacia of left knee M94.262 [facility] [address] [place] [address] 87763- 2734 Aug, Major depressive disorder, recurrent, moderate F33.1 ; Anxiety disorder, unspecified F41.9 and 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 [facility] [id number] [place] [address] 82546- 0810 Aug, [facility] [address] [place] [address] 83278- 5443 Aug, Osteoarthritis of left knee M17.9 [facility] [address] [place] [address] 00688- 6098 Aug, [facility] [address] [place] [address] 66556- 2917 July, Major depressive disorder, recurrent, moderate F33.1 ; Anxiety disorder, unspecified F41.9 and 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 [facility] [address] [address]- 7707 July, [facility] [id number] [place] [address] 58505- 6718 July, Chronic constipation K59.09 [facility] [address] [place] [address] 15098- 5236 Jun, [facility] [id number] [place] [address] 94810- 3225 Jun, [facility] [address], [place] [address]- 7757 Jun, Osteoarthritis of left knee M17.9 [place] [id number] [place] [address] 43143- 4999 Jun, [place] [address] 78371- 1878 Jun, Generalized anxiety disorder F41.1 ; Bipolar disorder, unspecified F31.9 and Major depressive disorder, recurrent, moderate F33.1 [place] [address] 63929- 1793 Jun, Migraine G43.909 [place] [address] 98896- 5908 Jun, Left knee pain M25.562 ; Chronic constipation K59.09 ; Dry mouth R68.2 ; Yeast vaginitis B37.3 and Memory loss R41.3 [place] [address] 77658- 2836 Jun, [place] [address] 01751- 3422 May, [place] [address] 44042- 7671 May, [place] [address] 42226- 3161 May, [place] [id number] [place] [address] 41930- 8964 May, [place] [address] 38545- 1134 May, Acute bronchitis with COPD J44.0 ; Knee pain, left M25.562 and Encounter for tobacco use cessation counseling Z71.6 [place] [id number] [place] [address] 41152- 1880 May, [place] [id number] [place] [address] 80033- 9604 Apr, Diabetes E11.9 ; TMJ (sprain of temporomandibular joint) S03.4XXA ; Tobacco abuse Z72.0 ; Migraine G43.909 and Anxiety F41.9 [facility] [id number] [place] [address] 60439- 2903 Apr, Generalized anxiety disorder F41.1 and Bipolar disorder, unspecified F31.9 [facility] [id number] [place] [address] 37307- 3872 Apr, Major depressive disorder, recurrent, moderate F33.1 ; Anxiety disorder, unspecified F41.9 and 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 [place] [id number] [place] [address] 15214- 6832 Apr, [facility] [id number] [place] [address] [address] Mar, [facility] [address] [address]- 8788 Feb, [facility] [id number] [place] [address] 34335- 7434 14 Feb, 2015 Major depressive disorder, recurrent, moderate F33.1 ; Anxiety disorder, unspecified F41.9 and 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 [facility] [id number] [place] [address] 23545- 7220 Feb, [facility] [id number] [place] [address] 78950- 7180 Feb, Generalized anxiety disorder F41.1 and Bipolar disorder, unspecified F31.9 [facility] [id number] [place] [address] 88026- 5105 Jan, [facility] [id number] [place] [address] 56156- 5279 Jan, [facility] [id number] [place] [address] 45737- 6630 Jan, Bipolar disorder, unspecified F31.9 and Generalized anxiety disorder F41.1 [facility] [id number] [place] [address] 90544- 9139 14 Dec, 2014 [facility] [address] 77804- 4831 Dec, Bipolar disorder, unspecified F31.9 and Generalized anxiety disorder F41.1 [facility] [address] 19148- 5981 Dec, Generalized anxiety disorder F41.1 and Major depressive disorder, recurrent, moderate F33.1 [facility] [id number] [place] [address] 12827- 5152 Oct, Headache 784.0 ; Cough 786.2 ; Vomiting and diarrhea 787.03 and Dysuria 788.1 [facility] [address] 93823- 0055 Aug, [facility] [address] 65604- 5540 Aug, Headache 784.0 and Shortness of breath 786.05 [facility] [id number] [place] [address] 77815- 5521 Aug, [facility] [id number] [place] [address] 57176- 7688 Aug, Migraine 346.90 [facility] [id number] [place] [address] 60668- 6934 Jun, [facility] [id number] [place] [address] 18649- 1164 Jun, [facility] [address] 78977- 4021 May, [facility] [id number] [place] [address] 07921- 5709 May, [facility] [address] 95633- 1257 May, [facility] [place] [facility] [address] [id number] [place] [address]- 8557 May, [facility] [place] [facility] [address] [id number] [place] [address]- 6973 May, [facility] [place] [facility] [address] [id number] [place] [address]- 8708 May, [facility] [place] [facility] [address] [id number] [place] [address]- 0177 Apr, 2014 [facility] [place] [facility] [address] [id number] [place] [address]- 7057 Apr, 2014 [facility] [place] [facility] [address] [id number] [place] [address]- 2266 Apr, 2014 [facility] [place] [facility] [address] [id number] [place] [address]- 4493 Apr, [facility] [place] [facility] [address] [id number] [place] [address]- 4698 Apr, [facility] [place] [facility] [address] [id number] [place] [address]- 3053 Mar, [facility] [place] [facility] [address] [id number] [place] [address]- 9893 Mar, [facility] [place] [facility] [address] [id number] [place] [address]- 0635 Mar, [facility] [place] [facility] [address] [id number] [address] 5094 Mar, [facility] [place] [facility] [address] [id number] [place] [address]- 4788 Feb, [facility] [place] [facility] [address] [id number] [place] [address]- 8771 Feb, [facility] [place] [facility] [address] [id number] [place] [address]- 1316 Feb, [facility] [place] [facility] [address] [id number] [place] [address]- 7547 18 Feb, 2014 [facility] [place] [facility] [address] [id number] [place] [address]- 8677 16 Feb, 2014 [facility] [place] [facility] [address] [id number] [place] 0946 Feb, [facility] [place] [facility] [address] [id number] [place] [address]- 9657 Feb, [facility] [place] [facility] [address] [id number] [place] [address]- 2426 Feb, [facility] [place] [facility] [address] [id number] [place] [address]- 8087 Feb, [facility] [place] [facility] [address] [id number] [place] [address]- 1253 Feb, [facility] [place] [facility] [address] [id number] [place] [address]- 0404 Feb, [facility] [place] [facility] [address] [id number] [place] [address]- 6396 Feb, [facility] [place] [facility] [address] [id number] [place] [address]- 5923 Jan, [facility] [place] [facility] [address] [id number] [place] [address]- 1195 Jan, [facility] [place] [facility] [address] [id number] [place] [address]- 9774 Dec, [facility] [place] [facility] [address] [id number] [place] [address]- 9893 Dec, [facility] [place] [facility] [address] [id number] [place] [address]- 8428 Dec, [facility] [place] [facility] [address] [id number] [place] [address]- 7064 Dec, [facility] [place] [facility] [address] [id number] [place] 0494 Dec, [facility] [place] [facility] [address] [id number] [place] [address]- 1300 Dec, [facility] [place] [facility] [address] [id number] [place] [address]- 1316 Sep, [facility] [place] [facility] [address] [id number] [place] [address]- 2221 Sep, [facility] [place] [facility] [address] [id number] [place] [address]- 3918 Sep, [facility] [place] [facility] [address] [id number] [place] [address]- 2858 Sep, [facility] [place] [facility] [address] [id number] [place] [address]- 8285 Sep, [facility] [place] [facility] [address] [id number] [place] [address]- 0863 Sep, [facility] [place] [facility] [address] [id number] [place] [address]- 9387 Sep, [facility] [place] [facility] [address] [id number] [place] [address]- 5150 Sep, [facility] [place] [facility] [address] [id number] [place] [address]- 2693 Sep, [facility] [place] [facility] [address] [id number] [place] [address]- 1384 Sep, [facility] [place] [facility] [address] [id number] [place] [address]- 0663 Aug, [facility] [place] [facility] [address] [id number] [place] [address]- 5387 Aug, [facility] [place] [facility] [address] [id number] [place] [address]- 9481 Aug, [facility] [place] [facility] [address] [id number] [place] [address]- 1209 Aug, [facility] [place] [facility] [address] [id number] [place] [address]- 0464 Aug, [facility] [place] [facility] [address] [id number] [place] [address]- 0824 Aug, [facility] [place] [facility] [address] [id number] [place] [address]- 2335 Aug, [facility] [place] [facility] [address] [id number] [place] [address]- 2419 Aug, [facility] [place] [facility] [address] [id number] [place] [address]- 0253 Aug, [facility] [place] [facility] [address] [id number] [place] [address]- 2577 Aug, [facility] [place] [facility] [address] [id number] [place] [address]- 4924 Aug, [facility] [place] [facility] [address] [id number] [place] [address]- 8154 Aug, [facility] [place] [facility] [address] [id number] [place] [address]- 2947 Aug, [facility] [place] [facility] [address] [id number] [place] [address]- 4831 July, [facility] [place] [facility] [address] [id number] [place] [address]- 8042 July, [facility] [place] [facility] [address] [id number] [place] [address]- 2519 July, [facility] [place] [facility] [address] [id number] [place] [address]- 3053 July, [facility] [place] [facility] [address] [id number] [place] [address]- 6346 July, [facility] [place] [facility] [address] [id number] [place] [address]- 6877 July, [facility] [place] [facility] [address] [id number] [place] [address]- 9767 July, [facility] [place] [facility] [address] [id number] [place] [address]- 1190 23 Jun, 2013 [facility] [address] [id number] [place] [address]- 9339 23 Jun, 2013 [facility] [place] [facility] [address] [id number] [place] [address]- 8546 18 Jun, 2013 [facility] [address] [id number] [place] [address]- 7896 16 Jun, 2013 [facility] [place] [facility] [address] [id number] [place] [address]- 0875 16 Jun, 2013 [facility] [address] [id number] [place] [address]- 9895 08 Jun, 2013 [facility] [address] [id number] [place] [address]- 4177 08 Jun, 2013 [facility] [address] [id number] [place] [address]- 8106 17 May, 2013 [facility] [address] [id number] [place] [address]- 0279 17 May, 2013 [facility] [place] [facility] [address] [id number] [place] [address]- 6355 14 May, 2013 [facility] [address] [id number] [place] [address]- 0025 14 May, 2013 [facility] [place] [facility] [address] [id number] [place] [address]- 9865 13 May, 2013 [facility] [place] [facility] [address] [id number] [place] [address]- 2678 13 May, 2013 [facility] [place] [facility] [address] [id number] [place] [address]- 9484 10 May, 2013 [facility] [place] [facility] [address] [id number] [place] [address]- 6493 10 May, 2013 [facility] [place] [facility] [address] [id number] [place] [address]- 6814 May, [facility] [place] [facility] [address] [id number] [place] [address]- 5602 Apr, [facility] [place] [facility] [address] [id number] [place] [address]- 5636 Apr, [facility] [place] [facility] [address] [id number] [place] [address]- 6476 Apr, [facility] [place] [facility] [address] [id number] [place] [address]- 5446 Apr, [facility] [place] [facility] [address] [id number] [place] [address]- 9956 Apr, [facility] [place] [facility] [address] [id number] [place] [address]- 3296 Apr, [facility] [place] [facility] [address] [id number] [place] [address]- 4644 Apr, [facility] [place] [facility] [address] [id number] [place] [address]- 9198 Apr, [facility] [place] [facility] [address] [id number] [place] [address]- 4778 Apr, [facility] [place] [facility] [address] [id number] [place] [address]- 1741 Apr, [facility] [place] [facility] [address] [id number] [place] [address]- 8523 Mar, [facility] [place] [facility] [address] [id number] [place] [address]- 3259 Mar, [facility] [place] [facility] [address] [id number] [place] [address]- 4449 Mar, [facility] [place] [facility] [address] [id number] [place] [address]- 2633 Mar, [facility] [place] [facility] [address] [id number] [place] [address]- 2456 Mar, [facility] [place] [facility] [address] [id number] [place] [address]- 8617 Mar, [facility] [address] [id number] [place] [address]- 3340 Mar, [facility] [place] [facility] [address] [id number] [place] [address]- 2589 Mar, [facility] [address] [id number] [place] [address]- 4685 Feb, [facility] [place] [facility] [address] [id number] [place] [address]- 3996 Feb, [facility] [address] [id number] [place] [address]- 0142 Jan, [facility] [place] [facility] [address] [id number] [place] [address]- 0413 Jan, [facility] [place] [facility] [address] [id number] [place] [address]- 9794 Jan, [facility] [address] [id number] [place] [address]- 3642 15 Jan, 2013 [facility] [place] [facility] [address] [id number] [place] [address]- 2947 Jan, [facility] [address] [id number] [place] [address]- 3393 Jan, [facility] [place] [facility] [address] [id number] [place] [address]- 8407 Jan, [facility] [place] [facility] [address] [id number] [place] [address]- 5998 05 Jan, 2013 [facility] [place] [facility] [address] [id number] [place] [address]- 8761 13 Dec, 2012 [facility] [place] [facility] [address] [id number] [place] [address]- 4438 10 Dec, 2012 [facility] [place] [facility] [address] [id number] [place] [address]- 6503 Dec, [facility] [place] [facility] [address] [id number] [place] [address]- 0989 20 Nov, 2012 [facility] [place] [facility] [address] [id number] [place] [address]- 5410 Nov, [facility] [place] [facility] [address] [id number] [place] [address]- 9081 Nov, [facility] [place] [facility] [address] [id number] [place] [address]- 5877 Nov, [facility] [place] [facility] [address] [id number] [place] [address]- 6524 Nov, [facility] [place] [facility] [address] [id number] [place] [address]- 0337 Nov, [facility] [place] [facility] [address] [id number] [place] [address]- 2086 Oct, [facility] [place] [facility] [address] [id number] [place] [address]- 8697 Oct, [facility] [place] [facility] [address] [id number] [place] [address]- 6657 Sep, [facility] [place] [facility] [address] [id number] [place] [address]- 8175 Sep, [facility] [place] [facility] [address] [id number] [place] [address]- 1773 Sep, [facility] [place] [facility] [address] [id number] [place] [address]- 9223 Sep, [facility] [place] [facility] [address] [id number] [place] [address]- 0232 Sep, [facility] [place] [facility] [address] [id number] [place] [address]- 1187 Sep, [facility] [place] [facility] [address] [id number] [place] [address]- 0273 Sep, [facility] [place] [facility] [address] [id number] [place] [address]- 5081 14 Aug, 2012 [facility] [address] [id number] [place] [address]- 8390 14 Aug, 2012 [facility] [address] [id number] [place] [address]- 2779 13 Aug, 2012 [facility] [address] [id number] [place] [address]- 9245 12 Aug, 2012 [facility] [address] [id number] [place] [address]- 7710 11 Aug, 2012 [facility] [address] [id number] [place] [address]- 4770 Aug, [facility] [address] [id number] [place] [address]- 3527 July, [facility] [address] [id number] [place] [address]- 9336 July, [facility] [address] [id number] [place] [address]- 7563 July, [facility] [address] [id number] [place] [address]- 3063 July, [facility] [address] [id number] [place] [address]- 2119 July, [facility] [address] [id number] [place] [address]- 3024 July, [facility] [address] [id number] [place] [address]- 3202 Jun, [facility] [place] [facility] [address] [id number] [place] [address]- 5088 Jun, [facility] [place] [facility] [address] [id number] [place] [address]- 4611 15 Jun, 2012 [facility] [address] [id number] [place] [address]- 1722 Jun, [facility] [place] [facility] [address] [id number] [place] [address]- 7166 Jun, [facility] [place] [facility] [address] [id number] [place] [address]- 6098 Jun, [facility] [place] [facility] [address] [id number] [place] [address]- 9401 Jun, [facility] [place] [facility] [address] [id number] [place] [address]- 4603 May, [facility] [place] [facility] [address] [id number] [place] [address]- 6961 May, [facility] [place] [facility] [address] [id number] [place] [address]- 0432 Apr, [facility] [place] [facility] [address] [id number] [place] [address]- 5827 Apr, [facility] [place] [facility] [address] [id number] [place] [address]- 0881 Apr, [facility] [place] [facility] [address] [id number] [place] [address]- 5163 Apr, [facility] [place] [facility] [address] [id number] [place] [address]- 7649 Apr, [facility] [place] [facility] [address] [facility] [id number] [place] [address]- 9859 Apr, [facility] [place] [facility] [address] [id number] [place] [address]- 4311 Apr, [facility] [place] [facility] [address] [id number] [place] [address]- 2540 Apr, [facility] [place] [facility] [address] [id number] [place] [address]- 3939 Apr, [facility] [place] [facility] [address] [facility] [id number] [place] [address]- 0295 Apr, [facility] [place] [facility] [address] [id number] [place] [address]- 1574 03 Apr, 2012 [facility] [address] [id number] [place] [address]- 4848 Mar, [facility] [address] [id number] [place] [address]- 6670 Mar, [facility] [address] [id number] [place] [address]- 0495 Mar, [facility] [address] [id number] [place] [address]- 2893 Mar, [facility] [address] [id number] [place] [address]- 0740 Mar, [facility] [address] [id number] [place] [address]- 6305 Mar, [facility] [address] [id number] [place] [address]- 8968 Mar, [facility] [address] [id number] [place] [address]- 8281 Mar, [facility] [address] [id number] [place] [address]- 2389 Mar, [facility] [address] [id number] [place] [address]- 5338 Mar, [facility] [address] [id number] [place] [address]- 0279 Mar, [facility] [address] [id number] [place] [address]- 4958 Mar, [facility] [address] [id number] [place] [address]- 3501 Mar, [facility] [address] [id number] [place] [address]- 9375 Feb, [facility] [address] [id number] [place] [address] Feb, [facility] [address] [id number] [place] [address] Feb, [facility] [place] [facility] [address] [id number] [place] [address] Feb, [facility] [place] [facility] [address] [id number] [place] [address] Feb, [facility] [place] [facility] [address] [id number] [place] [address] Feb, [facility] [address] [id number] [place] [address] Feb, [facility] [place] [facility] [address] [id number] [place] [address] Feb, [facility] [address] [id number] [place] [address] Feb, [facility] [address] [id number] [place] [address] Feb, [facility] [place] [facility] [address] [id number] [place] [address] Feb, [facility] [place] [facility] [address] [id number] [place] [address] Feb, [facility] [place] [facility] [address] [id number] [place] [address] Feb, [facility] [place] [facility] [address] [id number] [place] [address] Feb, [facility] [place] [facility] [address] [id number] [place] [address] Feb, [facility] [place] [facility] [address] [id number] [place] [address] Jan, [facility] [place] [facility] [address] [id number] [place] [address] Jan, [facility] [place] [facility] [address] [id number] [place] [address] Jan, [facility] [place] [facility] [address] [id number] [place] [address] Jan, [facility] [place] [facility] [address] [id number] [place] [address] Dec, [facility] [place] [facility] [address] [id number] [place] [address] Dec, [facility] [place] [facility] [address] [id number] [place] [address] Dec, [facility] [place] [facility] [address] [id number] [place] [address] Dec, [facility] [place] [facility] [address] [id number] [place] [address] Dec, [facility] [place] [facility] [address] [id number] [place] [address]- [address] Dec, [facility] [place] [facility] [address] [id number] [place] [address] Dec, [facility] [place] [facility] [address] [id number] [place] [address] Dec, [facility] [place] [facility] [address] [id number] [place] [address] 7987 Dec, [facility] [place] [facility] [address] [id number] [address] Dec, [facility] [place] [facility] [address] [id number], [place] [address] Dec, [facility] [place] [facility] [address] [id number] [place] [address] 25 Nov, 2011 [facility] [place] [facility] [address] [id number] [place] [address] 1995 24 Nov, 2011 [facility] [place] [facility] [address] [id number] [place] [address] 20 Nov, 2011 [facility] [place] [facility] [address] [id number] [place] [address]41 19 Sep, 2011 [facility] [place] [facility] [address] [id number] [place] [address] 2546 17 Sep, 2011 [facility] [place] [facility] [address] [id number] [place] [address] 2546 16 Sep, 2011 [facility] [address] [id number] [place] [address] 2546 14 Sep, 2011 [facility] [place] [facility] [address] [id number] [place] [address] 2546 13 Sep, 2011 [facility] [place] [facility] [address] [id number] [place] [address]- [address] 12 Sep, 2011 [facility] [place] [facility] [address] [id number] [place] [address] 07 Sep, 2011 [facility] [place] [facility] [address] [id number] [place] [address]- [address]44 06 Sep, 2011 [facility] [address] [id number] [place] [address]- [address] 06 Sep, 2011 [facility] [place] [facility] [address] [id number] [place] [address]- [address] 05 Sep, 2011 [facility] [address] [id number] [place] [address] 29 Oct, 2011 [facility] [place] [facility] [address] [id number] [place] [address] 2546 29 Oct, 2011 [facility] [place] [facility] [address] [id number] [place] [address] 2542 28 Oct, 2011 [facility] [place] [facility] [address] [id number] [place] [address] 2541 28 Oct, 2011 [facility] [place] [facility] [address] [id number] [place] [address]- [address]46 23 Oct, 2011 [facility] [place] [facility] [address] [id number] [place] [address]- [address] Oct, [facility] [place] [facility] [address] [id number] [place] [address]- [address]448 Oct, [facility] [place] [facility] [address] [id number] [place] [address]- [address] Oct, [facility] [place] [facility] [address] [id number] [place] [address]- [address] Oct, [facility] [place] [facility] [address] [id number] [place] [address]- 8626 Oct, [facility] [place] [facility] [address] [id number] [place] [address]- [address]87 Oct, [facility] [place] [facility] [address] [id number] [place] [address]- 4831 Sep, [facility] [place] [facility] [address] [id number] [place] [address]- [address]37 Sep, [facility] [place] [facility] [address] [id number] [place] [address]- [address]381 Sep, [facility] [place] [facility] [address] [id number] [place] [address]- [address] Sep, [facility] [place] [facility] [address] [id number] [place] [address] Sep, [facility] [place] [facility] [address] [id number] [place] [address]- 44[address] Sep, [facility] [place] [facility] [address] [id number] [place] [address]- [address] Aug, [facility] [place] [facility] [address] [id number] [place] [address]76 July, [facility] [place] [facility] [address] [id number] [place] [address]- [address] July, [facility] [place] [facility] [address] [id number] [place] [place] [address] Jun, [facility] [place] [facility] [address] [id number], [place] [address] 12 Jun, 2011 [facility] [address] [id number] [place] [address] 11 Jun, 2011 [facility] [place] [facility] [address] [id number] [place] [address] Jun, [facility] [place] [facility] [address] [id number] [place] [address] Jun, [facility] [place] [facility] [address] [id number] [place] [address] 10 Jun, 2011 [facility] [address] [id number] [place] [address] Jun, [facility] [place] [facility] [address] [id number] [place] [address] 08 Jun, 2011 [facility] [address] [id number] [place] [address] Jun, [facility] [place] [facility] [address] [id number] [place] [address] Jun, [facility] [place] [facility] [address] [id number] [place] [address] Jun, [facility] [place] [facility] [address] [facility] [id number] [place] [address] May, [facility] [place] [facility] [address] [id number] [place] [address] 16 May, 2011 [facility] [place] [facility] [address] [id number] [place] [address] 14 May, 2011 [facility] [place] [facility] [address] [id number] [place] [address] 06 May, 2011 [facility] [place] [facility] [address] [facility] [id number] [place] [address] Apr, [facility] [place] [facility] [address] [facility] [id number] [place] [address] Apr, [facility] [place] [facility] [address] [id number] [place] [address] Apr, [facility] [place] [facility] [address] [id number] [place] [address] Apr, [facility] [place] [facility] [address] [id number] [place] [address] Apr, [facility] [place] [facility] [address] [id number] [place] [address] Apr, [facility] [place] [facility] [address] [id number] [place] [address] Apr, [facility] [place] [facility] [address] [id number] [place] [address] Apr, [facility] [place] [facility] [address] [id number] [place] [address] Mar, [facility] [place] [facility] [address] [id number] [place] [address] Mar, [facility] [place] [facility] [address] [id number] [place] [address] Mar, [facility] [place] [facility] [address] [id number] [place] [address] Mar, [facility] [place] [facility] [address] [id number], [place] [address] Mar, [facility] [place] [facility] [address] [id number], [place] [address] Mar, [facility] [place] [facility] [address] [id number] [place] [address] Mar, [facility] [place] [facility] [address] [id number] [place] [address] Mar, [facility] [place] [facility] [address] [id number], [place] [address] Mar, [facility] [place] [facility] [address] [id number], [place] [address] Mar, [facility] [address] [id number] [place] [address] Mar, [facility] [place] [facility] [address] [id number], [place] [address] Mar, [facility] [address] [facility] [id number] [place] [address] Mar, [facility] [place] [facility] [address] [id number] [place] [address] Mar, [facility] [address] [id number] [place] [address], [place] [address] Mar, [facility] [address] [facility] [id number] [place] [address] Mar, [facility] [address]65[address], [place] [address] Feb, [facility] [place] [facility] [address] [id number] [place] [address] Feb, [facility] [address] [id number] [place] [address] Feb, [facility] [place] [facility] [address] [id number], [place] [address] Jan, [facility] [address] [facility] [id number], [place] [address] Jan, [facility] [place] [facility] [address] [facility] [id number], [place] [address] Jan, [facility] [place] [facility] [address] [id number], [place] [address] Dec, [facility] [place] [facility] [address] [facility] [id number], [place] [address] Dec, [facility] [place] [facility] [address] [id number], [place] [address] 16 Nov, 2010 [facility] [place] [facility] [address] [facility] [id number], [place] [address] Oct, [facility] [address] [id number], [place] [address] Oct, [facility] [address], [place] [address] Oct, [facility] [address], [place] [address] Sep, [facility] [address] [id number], [place] [address] Apr, [facility] [address]65[address], [place] [address] Feb, [facility] [address] [id number], [place] [address] Jan, IMMUNIZATIONS Vaccine Route Administration Date Status SOLUMEDROL (UP TO 125 MG) IM Intramuscular September 20, 2016 Administered SOCIAL HISTORY Never Assessed REASON FOR VISIT trouble breathing- shortness of breath JStrasserRN PLAN OF CARE Activity Details Follow Up prn Reason: VITAL SIGNS Height 70 in 2016-09-20 Weight 252.6 lbs 2016-09-20 Heart Rate 118 bpm 2016-09-20 Respiratory Rate 24 2016-09-20 Oximetry 89 % 2016-09-20 BMI 36.24 kg/m2 2016-09-20 Blood pressure systolic 110 mmHg 2016-09-20 Blood pressure diastolic 72 mmHg 2016-09-20 MEDICATIONS Medication Instructions Dosage Frequency Start Date End Date Duration Status Topamax 100 MG TAKE ONE TABLET BY MOUTH TWICE DAILY 30 Active Hydrochlorothiazide 50 mg Orally Once a day 1 tablet 24h Sep, Active PredniSONE 20 MG Orally 3 tablets x 3 days, followed by 2 tablets x 3 days, followed by 1 tablet x 3 days. as directed Sep, Sep, 9 days Active Doxycycline Hyclate 100 MG Orally every 12 hrs 1 capsule 12h Sep, Sep, 10 days Active Ventolin HFA 90 mcg/actuation Inhalation every 4 hrs 2 puffs as needed 4h Dec, Active Trulicity 0.75 MG/0.5ML Subcutaneous once weekly 0.5 ml Jun, 90 days Active Wellbutrin SR 150 MG Orally Twice a day 1 tablet 12h Aug, 30 day(s) Active Spiriva HandiHaler 18 MCG Inhalation Once a day 1 capsule 24h Active Amitriptyline HCl 150 MG Orally repository Once a day 1 tablet 24h 30 days Active Neurontin 300 MG Orally PALS Three times a day 1 capsule 8h Dec, 30 days Active Abilify 5 mg Orally Once a day 1 tablet 24h Jun, 90 days Active Advair Diskus 250 mcg-50 mcg Inhalation Twice a day 1 puff 12h Dec, Active Cymbalta 60 mg Orally PALS Twice a day 1 capsule 12h Feb, 30 days Active Zyprexa 15 MG Orally Once a day 1 tablet 24h Jan, 30 days Active RESULTS No Results PROCEDURES Procedure Date Ordered Result Body Site NEBULIZER TREATMENT 2016-09-20 N/A MEASURE BLOOD OXYGEN LEVEL September 20, 2016 NEB/MDI RX INITIAL September 20, 2016 INSTRUCTIONS MEDICATIONS ADMINISTERED No Known Medications MEDICAL (GENERAL) HISTORY Type Description Date Medical History COPD Medical History asthma Medical History heart cath Medical History Social phobia Medical History 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 Hospitalization History for COPD x2 Mar 2017 Hospitalization History Upper GI bleed at apr 2017 Hospitalization History [facility]- COPD Exacerbation, diarrhea 05/23/2017 Hospitalization History COPD exacerbation-[facility] 06/13/17
[2017-08-04 20:14] VITALS: BP 130/98
[2017-08-04] MEDS ORDERED: methylPREDNISolone 125 MG (Solu-MEDROL) VIAL IV SCH (20:27)
[2017-08-04] MEDS ORDERED: CATHETER FLUSH 10 ML SYR IV PRN (20:30)
[2017-08-04] MEDS ORDERED: NS IV 1000 ML 1,000 ML IV SCH (20:30)
[2017-08-04 21:00] VITALS: BP 131/85
[2017-08-04 21:15] VITALS: BP_SYST 130; BP_SYST 133; BP_DIAS 86; BP_DIAS 98
[2017-08-04] MEDS ORDERED: RT-ALBUTEROL/IPRATROPIUM 3 ML (DUONEB) VIAL INH PRN (21:30)
[2017-08-04 22:00] VITALS: BP 153/102
[2017-08-04] MEDS: RT-ALBUTEROL/IPRATROPIUM 3 ML (DUONEB) VIAL INH SCH (22:21)
[2017-08-04 23:00] VITALS: BP 153/109
[2017-08-04] MEDS ORDERED: meTOprolol TARTRATE 50 MG (LOPRESSOR) TAB ONE (23:33)
[2017-08-04] MEDS ORDERED: meTOprolol TARTRATE 50 MG (LOPRESSOR) TAB PO ONE (23:45)
[2017-08-05] VITALS (11 sets, daily range): BP systolic 117–159; BP diastolic 69–112
[2017-08-05 01:47] LABS: AMPHETAMINE SCREEN, URINE POSITIVE (NEGATIVE); BARBITURATE SCREEN URINE NEGATIVE (NEGATIVE); BENZODIAZEPINES SCREEN URINE NEGATIVE (NEGATIVE); CANNABINOID SCREEN, URINE NEGATIVE (NEGATIVE); COCAINE SCREEN URINE NEGATIVE (NEGATIVE); METHADONE STAT NEGATIVE (NEGATIVE); METHAMPHETAMINE SCREEN URINE S POSITIVE (NEGATIVE); OPIATE SCREEN URINE NEGATIVE (NEGATIVE); OXYCODONE STAT NEGATIVE (NEGATIVE); PROPOXYPHENE STAT NEGATIVE (NEGATIVE); TRICYCLIC ANTIDEPRESSANTS SCRE NEGATIVE (NEGATIVE)
[2017-08-05] MEDS: RT-ALBUTEROL/IPRATROPIUM 3 ML (DUONEB) VIAL INH SCH ×6 (01:51→22:03)
[2017-08-05] MEDS ORDERED: ONDANSETRON 4 MG/2 ML (SDV) Z0FRAN ONE (04:31)
[2017-08-05] MEDS: ONDANSETRON 4 MG/2 ML (SDV) Z0FRAN IVP PRN ×3 (04:38→12:49)
[2017-08-05 04:44] LABS: BASOPHILS % (AUTO) 0 % (0-10); EOSINOPHILS % (AUTO) 0 % (0-10); HEMATOCRIT 38 % (35-52); HEMOGLOBIN 11.7 G/DL (11.5-16.0); LYMPHOCYTES # (AUTO) 0.6 X 10^3 (1.0-4.0); LYMPHOCYTES % (AUTO) 7 % (12-44); MEAN CORPUSCULAR HEMOGLOBIN 24 PG (25-34); MEAN CORPUSCULAR HGB CONC 31 G/DL (32-36); MEAN CORPUSCULAR VOLUME 78 FL (80-99); MEAN PLATELET VOLUME 10.8 FL (7.4-10.4); MONOCYTES # (AUTO) 0.1 X 10^3 (0.0-1.0); MONOCYTES % (AUTO) 1 % (0-12); NEUTROPHILS % (AUTO) 92 % (42-75); PLATELET COUNT 419 10^3/uL (130-400); RED CELL DISTRIBUTION WIDTH 15.9 % (10.0-14.5); WHITE BLOOD COUNT 8.7 10^3/uL (4.3-11.0)
[2017-08-05 05:01] LABS: ANISOCYTOSIS SLIGHT; BAND NEUTROPHILS 0 %; BASOPHILS % (MANUAL) 0 %; CRENATED RBC SLIGHT; ELLIPT/OVALOCYTES SLIGHT; EOSINOPHILS % (MANUAL) 0 %; LYMPHOCYTES % (MANUAL) 7 %; MONOCYTES % (MANUAL) 1 %; NEUTROPHILS % (MANUAL) 92 %
[2017-08-05 05:07] LABS: BUN/CREATININE RATIO 12; CALCIUM 9.5 MG/DL (8.5-10.1); CARBON DIOXIDE 23 MMOL/L (21-32); CHLORIDE 103 MMOL/L (98-107); CREATININE SERUM 0.74 MG/DL (0.60-1.30); GFR ESTIMATED > 60; GLUCOSE 194 MG/DL (70-105); MAGNESIUM 1.7 MG/DL (1.8-2.4); PHOSPHORUS 3.1 MG/DL (2.3-4.7); POTASSIUM 3.8 MMOL/L (3.6-5.0); SODIUM 139 MMOL/L (135-145)
[2017-08-05] MEDS ORDERED: PROCHLORPERAZINE 10 MG/2ML INJ (COMPAZINE) IV ONE (06:00)
[2017-08-05] MEDS ORDERED: MAGNESIUM 1 GM/100 ML IVPB 100 ML IV SCH (06:00)
[2017-08-05] MEDS ORDERED: POTASSIUM CL 10MEQ/50ML IVPB 50 ML IV SCH (06:00)
[2017-08-05] MEDS ORDERED: KCL 20 MEQ TAB (K-DUR) PO SCH (06:00)
--- NOTE | 2017-08-05 06:22 | Pulmonary Consultation ---
History of Present Illness History of Present Illness Date of Consultation 08/05/17 06:11 Time Seen by Provider: 06:15 Date of Admission History of Present Illness 52yo with hx of chronic respiratory failure, very severe COPD oxygen dependent, medical noncompliance, and drug use presented secondary to worsening respiratory failure that started 1wk ago. Pt has had multiple admissions secondary to respiratory failure. PT is currently a full code. UDS is positive for methamphetamine use. Pt admits to using methamphetamines. PT is very anxious when awake and appears to be SOB with accessory muscle use however when she's asleep she does not appear to be in respiratory distress. I am consulted for pulmonary management. Allergies and Home Medications Allergies Coded Allergies: buspirone (Verified Allergy, Mild, 05/02/17) Made"legs Shaky" amitriptyline (Verified Allergy, Unknown, 05/02/17) " MAKES ME DO WEIRD THINGS LIKE WALK IN MY SLEEP AND HAVE HALLUCINATIONS." Home Medications Albuterol Sulfate 1 Puff Puff, 2 PUFF IH Q4H PRN for SHORTNESS OF BREATH, ( Reported) 1 PUFF = 90 MCG Aripiprazole 15 Mg Tablet, 15 MG PO DAILY, (Reported) Cefuroxime Axetil 500 Mg Tablet, 500 MG PO BID Prescribed by: ELLEN ACE on 08/04/17 1728 Dulaglutide 0.75 Mg/0.5 Ml Pen.injctr, 0.75 MG SQ Th, (Reported) LAST DISPENSED 10/28/16 FROM PALS PROGRAM Duloxetine HCl 60 Mg Capsule.dr, 120 MG PO DAILY, (Reported) TAKES 2 (60MG) CAPSULES Fluticasone/Salmeterol 1 Each Blst.w.dev, 1 PUFF IH BID, (Reported) Gabapentin 300 Mg Capsule, 300 MG PO TID, (Reported) LAST DISPENSED FROM REPOSITORY 10/01/16 #270 Glimepiride 1 Mg Tablet, 1 MG PO DAILY PRN for WHEN TAKING PREDNISONE, (Reported ) LAST FILLED 03/30/17 #30 Ipratropium/Albuterol Sulfate 3 Ml Ampul.neb, 3 ML IH QID PRN for SHORTNESS OF BREATH, (Reported) Metoprolol Tartrate 25 Mg Tablet, 12.5 MG PO BID, (Reported) TAKES 1/2 (25MG) TABLET / LAST FILLED 04/16/17 #30 Multivitamin 1 Each Tablet, 1 TAB PO DAILY, (Reported) Ondansetron 8 Mg Tab.rapdis, 8 MG PO Q6H PRN for NAUSEA/VOMITING-1ST LINE, ( Reported) Pantoprazole Sodium 40 Mg Tablet.dr, 40 MG PO BID, (Reported) LAST FILLED 05/05/17 #60 Prednisone 20 Mg Tab, 40 MG PO DAILY@0700 Prescribed by: TIMOTHY LARIOS on 06/17/17 1204 Prednisone 20 Mg Tab, 40 MG PO DAILY Prescribed by: ELLEN ACE on 08/04/17 1728 Psyllium Husk (with Sugar) 3.4 Gm Powd.pack, 3.4 GM PO DAILY, (Reported) Sucralfate 1 Gm Tablet, 1 GM PO ACHS, (Reported) LAST FILLED 05/05/17 #120 Tiotropium [place] 1 Inh Aerp, 1 CAP IH DAILY, (Reported) Topiramate 100 Mg Tablet, 100 MG PO BID, (Reported) LAST FILLED 02/06/17 #60 Past Hlhpict-Nfzdqs-Cjgthm Hx Patient Social History Alcohol Use: Denies Use Recreational Drug Use: No (4 YRS AGO) Drug of Choice: +IV METH past hx Smoking Status: Current Everyday Smoker Type Used: Cigarettes 2nd Hand Smoke Exposure: Yes Recent Foreign Travel: No Contact w/Someone Who Travel: No Recent Infectious Disease Expo: No Recent Hopitalizations: Yes Physical Abuse: No Sexual Abuse: No Mistreated: No Fear: No Immunizations Up To Date Tetanus Booster (TDap): Unknown Date of Pneumonia Vaccine: Dec 08, 2011 Date of Influenza Vaccine: Dec 31, 2016 Seasonal Allergies Seasonal Allergies: No Past Medical History Surgeries: No Respiratory: Yes (O2 AT 2-3L/NC) Asthma, Sleep Apnea, COPD, Emphysema Currently Using CPAP: No Currently Using BIPAP: Yes (PT. STATED) Cardiac: Yes (HAD HEART CATH. 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 Sexually Transmitted Disease: No HIV/AIDS: No Genitourinary: No Gastrointestinal: Yes Chronic Constipation, Chronic Diarrhea Musculoskeletal: Yes (chronic shoulder and neck pain) Endocrine: Yes (DM- only while on steriods per pt) Diabetes, Non-Insulin dep HEENT: No Cancer: No Psychosocial: Yes Sleep Difficulties, Anxiety, Suicide Attempts, Bipolar, Depression Nursing Suicide Risk Score: 0 Integumentary: No Blood Disorders: No Adverse Reaction/Blood Tranf: No Family Medical History Cancer 03 MOTHER, Onset:66 (LUNG ) 09 BROTHER (LUNG ) Congestive heart failure 03 FATHER Heart Disease, Cancer Review of Systems Time Seen by Provider: 06:22 Constitutional: Sweats, Weakness, Malaise; No: Fever, Chills, Other Eyes: No: Pain, Vision change, Conjunctivae inflammation, Eyelid inflammation, Other, Redness ENT: Nose congestion; No: Ear pain, Ear discharge, Nose pain, Nose discharge, Mouth pain, Mouth swelling, Throat pain, Throat swelling, Other Respiratory: Cough, Shortness of breath, SOB with excertion, Wheezing, Sputum; No: Hemoptysis Cardiovascular: Palpitations, Paroxysmal Noc. Dyspnea, Lt Headedness Gastrointestinal: Nausea, Constipation; No: Vomiting, Diarrhea Neurological: Weakness Exam Exam Vital Signs Date Time Temp Pulse Resp B/P (MAP) Pulse Ox O2 Delivery O2 Flow Rate FiO2 08/05/17 05:00 73 16 117/89 (98) 97 Vapotherm 45.00 15.00 08/05/17 04:00 81 40 126/90 (102) 95 Vapotherm 45.00 15.00 08/05/17 04:00 94 Vapotherm 15.00 45 08/05/17 03:00 80 22 128/98 (108) 96 Vapotherm 45.00 15.00 08/05/17 02:00 91 22 131/97 (108) 97 Vapotherm 45.00 15.00 08/05/17 01:51 97 Vapotherm 10.00 45 08/05/17 01:00 102 08/05/17 01:00 102 20 156/101 (119) 95 Vapotherm 45.00 15.00 08/05/17 00:00 106 19 159/112 (128) 98 Vapotherm 45.00 15.00 08/05/17 00:00 96 Vapotherm 15.00 45 08/04/17 23:00 110 12 153/109 (124) 96 Vapotherm 45.00 15.00 08/04/17 22:21 97 Vapotherm 15.00 45 08/04/17 22:00 153/102 (119) 08/04/17 22:00 100 15 98 Vapotherm 45.00 15.00 08/04/17 21:30 101 20 97 Vapotherm 45.00 15.00 08/04/17 21:15 98 20 133/86 (102) 100 Vapotherm 45.00 15.00 08/04/17 21:15 99 99 08/04/17 21:00 100 30 131/85 (100) 98 Vapotherm 45.00 15.00 08/04/17 20:45 103 39 98 Vapotherm 45.00 15.00 08/04/17 20:30 98 22 97 Vapotherm 45.00 15.00 08/04/17 20:30 Vapotherm 45 08/04/17 20:23 97 08/04/17 20:15 98 18 125/82 100 Vapotherm 08/04/17 20:14 98.8 101 22 130/98 (109) 98 Vapotherm 45.00 15.00 08/04/17 18:48 100 Vapotherm 30.00 80 08/04/17 18:38 100 Nasal Cannula 3.00 08/04/17 16:57 96.8 105 26 125/91 (102) 96 Nasal Cannula 3.00 08/04/17 16:51 95 Nasal Cannula 3.00 I & O 08/05/17 07:00 Intake Total 650 ml Output Total 800 ml Balance -150 ml General Appearance: Anxious, Moderate Distress HEENT: Normal ENT Inspection Neck: Full Range of Motion, Normal Inspection, Non Tender, Supple Respiratory: Accessory Muscle Use, Crackles, Decreased Breath Sounds, Respiratory Distress Cardiovascular: Regular Rate, Rhythm Capillary Refill: Less Than 3 Seconds Gastrointestinal: normal bowel sounds, non tender, soft Extremity: Normal Capillary Refill, Normal Inspection, Non Tender, No Calf Tenderness Neurologic/Psychiatric: Alert, Oriented x3 Skin: Normal Color, Warm/Dry Lymphatic: No Adenopathy Results Lab Laboratory Tests 08/04/17 16:45 08/05/17 03:50 Assessment/Plan Assessment/Plan Acute on chronic respiratory failure very severe oxygen dependent COPD with COPDAE -Steroids, SVNs, oxygen -Pt has BIPAP at home Methamphetamine use -education morbid obesity Medical noncompliance with multiple hospitalizations PT is still currently a full code. Will have hospice discuss with patient all options from DNR to hospice care only. Given patients hx of multiple hospitalizations, worsening COPD, and drug use her overall prognosis is poor. WILLIAMS DRAKE DO August 05, 2017 06:22
[2017-08-05] MEDS: MAGNESIUM 1 GM/100 ML IVPB 100 ML IV SCH ×2 (06:47→08:48)
--- NOTE | 2017-08-05 08:04 | Diagnostic Imaging Report ---
EXAMINATION: Chest radiograph, portable AP view. DATE: August 05, 2017 at 0304 hours. INDICATION: 52-year-old female, dyspnea. COMPARISON: August 04, 2017. FINDINGS: Stable overall appearance of the cardiomediastinal silhouette. There is unchanged nonspecific bibasilar airspace consolidation. There is no identified pneumothorax. IMPRESSION: 1. Unchanged nonspecific bibasilar airspace consolidation which may reflect effusions, infiltrate, and/or atelectasis. Dictated by: Dictated on workstation # [id number]
[2017-08-05] MEDS: predniSONE 20 MG TAB PO SCH (08:48)
[2017-08-05] MEDS: meTOprolol TARTRATE 25 MG (LOPRESSOR) TABLET PO SCH ×2 (08:48→20:07)
--- NOTE | 2017-08-05 09:41 | History & Physical-Hospitalist ---
History of Present Illness HPI/Chief Complaint CC: Dyspnea HPI: This is a 52-year-old white female known to this hospital due to multiple hospitalizations past medical history of severe COPD and continued smoking and illicit drug abuse who presents to the ER with complaints of shortness of breath and wheezing. Patient was found to have respiratory insufficiency checked ABG and required BiPAP with volume overload treatment. She does have methamphetamines on her drug screen of which she denies usage. Overall she is not forthcoming with any other details but does report she is breathing better. We will have the goal of transferring to fourth floor as long as she remained stable and illicit drug use and smoking cessation was counseled. 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 Patients Allergies have been reviewed. Allergies Allergies Coded Allergies buspirone (Verified Allergy, Mild, 05/02/17) Made"legs Shaky" amitriptyline (Verified Allergy, Unknown, 05/02/17) " MAKES ME DO WEIRD THINGS LIKE WALK IN MY SLEEP AND HAVE HALLUCINATIONS." Past Ongmhyb-Mfxmks-Lutgyn Hx Past Med/Social Hx: Reviewed Nursing Past Med/Soc Hx, Reviewed and Corrections made Patient Social History Marrital Status: single Employed/Student: unemployed Alcohol Use: Denies Use Recreational Drug Use: No (4 YRS AGO) Drug of Choice: +IV METH past hx Smoking Status: Current Everyday Smoker Type Used: Cigarettes 2nd Hand Smoke Exposure: Yes Physical Abuse Screen: No Sexual Abuse: No Recent Foreign Travel: No Contact w/other who traveled: No Recent Hopitalizations: Yes Recent Infectious Disease Expo: No Immunizations Up To Date Tetanus Booster (TDap): Unknown Date of Pneumonia Vaccine: Dec 08, 2011 Date of Influenza Vaccine: Dec 31, 2016 Seasonal Allergies Seasonal Allergies: No Past Medical History Respiratory: COPD Currently Using CPAP: No Currently Using BIPAP: Yes (PT. STATED) Cardiac: Hypertension Neurological: Headaches /Migraines 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: No Sexually Transmitted Disease: No HIV/AIDS: No 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 Disorders: Denies Menopausal Gastrointestinal: Chronic Constipation, Chronic Diarrhea Endocrine: Diabetes, Non-Insulin dep Psychosocial: Sleep Difficulties, Anxiety, Suicide Attempts, Bipolar, Depression History of Blood Disorders: No Adverse Reaction to Blood Jeffers: No Family History Cancer 03 MOTHER, Onset:66 (LUNG ) 09 BROTHER (LUNG ) Congestive heart failure 03 FATHER Heart Disease, Cancer Review of Systems Constitutional: see HPI, malaise, weakness EENTM: no symptoms reported Respiratory: dyspnea on exertion, short of breath, wheezing Cardiovascular: no symptoms reported Gastrointestinal: loss of appetite Genitourinary: no symptoms reported Musculoskeletal: no symptoms reported Skin: no symptoms reported Psychiatric/Neurological: No Symptoms Reported All Other Systems Reviewed Negative Unless Noted: Yes Physical Exam Physical Exam Vital Signs Vital Signs - First Documented 08/04/17 08/04/17 08/04/17 16:51 16:57 18:48 Temp 96.8 Pulse 105 Resp 26 B/P (MAP) 125/91 (102) Pulse Ox 95 O2 Delivery Nasal Cannula O2 Flow Rate 3.00 FiO2 80 Capillary Refill : Less Than 3 Seconds General Appearance: No Apparent Distress, WD/WN, Chronically ill, Obese Eyes: Bilateral Eye Normal Inspection, Bilateral Eye PERRL HEENT: PERRL/EOMI, Normal ENT Inspection, Pharynx Normal Neck: Full Range of Motion, Normal Inspection, Non Tender, Supple, Carotid Bruit Respiratory: Chest Non Tender, No Accessory Muscle Use, No Respiratory Distress , Crackles, Decreased Breath Sounds, Wheezing Cardiovascular: Regular Rate, Rhythm, No Edema, No Gallop, No JVD, No Murmur, Normal Peripheral Pulses Gastrointestinal: Normal Bowel Sounds, No Organomegaly, No Pulsatile Mass, Non Tender, Soft Back: Normal Inspection, No CVA Tenderness, No Vertebral Tenderness Extremity: Normal Capillary Refill, Normal Inspection, Normal Range of Motion, Non Tender, No Calf Tenderness, No Pedal Edema Neurologic/Psychiatric: Alert, Oriented x3, No Motor/Sensory Deficits, Depressed Affect Skin: Normal Color, Warm/Dry Lymphatic: No Adenopathy Results Results/Procedures Labs Laboratory Tests 08/04/17 16:45 08/05/17 03:50 Patient resulted labs reviewed. Assessment/Plan Admission Diagnosis Assessment: Acute exacerbation of COPD Meth use Smoker Volume overload Plan: Tx to 4th Monitor closely Poor prognosis Admission Status: Inpatient Order (span 2 midnights) Reason for Inpatient Admission: Iv steroids and volume overload management Diagnosis/Problems Diagnosis/Problems (1) COPD with exacerbation Status: Acute (2) Methamphetamine abuse Status: Chronic (3) Smoker Status: Chronic (4) Elevated brain natriuretic peptide (BNP) level Status: Acute (5) Obesity Status: Chronic Qualifiers: Obesity type: unspecified obesity type Obesity classification: unspecified obesity classification Serious obesity comorbidity presence: unspecified whether serious comorbidity present Qualified Codes: E66.9 - Obesity, unspecified (6) Non-compliance Status: Chronic (7) Anxiety Status: Chronic (8) Respiratory distress Status: Acute Clinical Quality Measures DVT/VTE Risk/Contraindication: Risk Factor Score Per Nursin RFS Level Per Nursing on Admit: 2=Moderate LEILA SAEED DO August 05, 2017 09:41
[2017-08-05] MEDS ORDERED: LOPE2CAP PO (11:20)
[2017-08-05] MEDS ORDERED: HYDROcodone/APAP 10 MG/325 MG (LORTAB) TAB PO PRN (14:45)
[2017-08-05] MEDS ORDERED: diphenhydrAMINE 50 MG/ML INJ (BENADRYL) IVP PRN (19:45)
[2017-08-05] MEDS ORDERED: NICOTINE 21 MG (NICODERM) PATCH ONE (19:59)
[2017-08-05] MEDS: NICOTINE 21 MG (NICODERM) PATCH TD SCH (20:07)
[2017-08-06] VITALS: BP 109/52
[2017-08-06] MEDS: RT-ALBUTEROL/IPRATROPIUM 3 ML (DUONEB) VIAL INH SCH ×2 (02:40→07:42)
[2017-08-06 04:30] VITALS: BP 111/55
[2017-08-06] MEDS ORDERED: KCL 20 MEQ TAB (K-DUR) PO ONE ×2 (04:30→05:20)
[2017-08-06] MEDS ORDERED: FUROSEMIDE 40 MG/4 ML INJ (LASIX) IVP ONE (04:30)
--- NOTE | 2017-08-06 04:33 | Pulmonary Progress Note ---
Subjective Time Seen by Provider: 04:32 Subjective/Events-last exam SOB with NPC. Exam Exam Vital Signs Date Time Temp Pulse Resp B/P (MAP) Pulse Ox O2 Delivery O2 Flow Rate FiO2 08/06/17 02:40 94 Nasal Cannula 3.00 08/06/17 00:00 97.3 86 20 109/52 (71) 93 Nasal Cannula 3.00 08/05/17 22:03 95 Nasal Cannula 3.00 08/05/17 21:00 Nasal Cannula 3.00 08/05/17 19:53 97.6 98 20 118/69 (85) 90 Nasal Cannula 4.00 08/05/17 18:47 94 Nasal Cannula 3.00 08/05/17 16:00 98.0 87 20 143/72 (95) 95 Nasal Cannula 4.00 08/05/17 14:20 92 Nasal Cannula 3.00 08/05/17 12:45 95 Nasal Cannula 4.00 08/05/17 12:15 Nasal Cannula 3.00 08/05/17 12:00 98.0 87 19 121/90 (100) 93 Nasal Cannula 4.00 08/05/17 12:00 93 Nasal Cannula 4.00 08/05/17 10:23 92 Nasal Cannula 4.00 08/05/17 08:47 97.9 08/05/17 08:30 95 Nasal Cannula 4.00 08/05/17 08:00 79 15 128/94 (105) 95 Nasal Cannula 4.00 08/05/17 07:15 Nasal Cannula 4.00 08/05/17 07:00 75 08/05/17 06:42 93 Vapotherm 10.00 40 08/05/17 06:00 74 25 135/88 (104) 89 Vapotherm 45.00 15.00 08/05/17 05:00 73 16 117/89 (98) 97 Vapotherm 45.00 15.00 I & O 08/06/17 06:59 Intake Total 2940 ml Output Total 600 ml Balance 2340 ml General Appearance: No Apparent Distress, WD/WN, Chronically ill, Obese HEENT: PERRL/EOMI, Normal ENT Inspection, Pharynx Normal Neck: Full Range of Motion, Normal Inspection, Non Tender, Supple, Carotid Bruit Respiratory: Chest Non Tender, No Accessory Muscle Use, No Respiratory Distress , Crackles, Decreased Breath Sounds, Wheezing Cardiovascular: Regular Rate, Rhythm, No Edema, No Gallop, No JVD, No Murmur, Normal Peripheral Pulses Capillary Refill: Less Than 3 Seconds Gastrointestinal: normal bowel sounds, non tender, soft Extremity: Normal Capillary Refill, Normal Inspection, Normal Range of Motion, Non Tender, No Calf Tenderness, No Pedal Edema Neurologic/Psychiatric: Alert, Oriented x3, No Motor/Sensory Deficits, Depressed Affect Skin: Normal Color, Warm/Dry Lymphatic: No Adenopathy Results Lab Laboratory Tests 08/04/17 16:45 08/05/17 03:50 Assessment/Plan Assessment/Plan Acute on chronic respiratory failure very severe oxygen dependent COPD with COPDAE -Steroids, SVNs, oxygen -Pt has BIPAP at home Pulmonary edema -Will give 80mg of Lasix x 1 Methamphetamine use -education morbid obesity Medical noncompliance with multiple hospitalizations [id number] WILLIAMS THOMAS DO August 06, 2017 04:33
[2017-08-06] MEDS ORDERED: FUROSEMIDE 40 MG/4 ML INJ (LASIX) ONE (05:15)
[2017-08-06] MEDS: predniSONE 20 MG TAB PO SCH (05:31)
[2017-08-06 08:00] VITALS: BP 120/73
[2017-08-06] MEDS: NICOTINE 21 MG (NICODERM) PATCH TD SCH (08:39)
[2017-08-06] MEDS: meTOprolol TARTRATE 25 MG (LOPRESSOR) TABLET PO SCH (08:40)
[2017-08-06] MEDS ORDERED: PRED10TA22 PO (10:29)
[2017-08-06] MEDS ORDERED: RT-ALBUTEROL/IPRATROPIUM 3 ML (DUONEB) VIAL IH PRN (10:30)
[2017-08-06] MEDS ORDERED: NON-FORMULARY MEDICATION 1 EA EA (Dulaglutide (Trulicity) 0.75 MG) SQ SCH (10:30)
[2017-08-06] MEDS ORDERED: RT-ALBUTEROL SULF 2.5 MG/3 ML PRE-MIX VIAL IH PRN (10:30)
[2017-08-06] MEDS ORDERED: LOPERAMIDE 2 MG (IMODIUM) CAP PO PRN (10:30)
[2017-08-06] MEDS ORDERED: GLIMEPIRIDE 1 MG (AMARYL) TAB PO PRN (10:30)
--- NOTE | 2017-08-06 10:31 | Discharge Summary-Hospitalist ---
Diagnosis/Chief Complaint Date of Admission August 04, 2017 at 17:59 Date of Discharge Discharge Date: August 06, 2017 Admission Diagnosis Assessment: Acute exacerbation of COPD Meth use Smoker Volume overload Plan: Tx to 4th Monitor closely Poor prognosis Discharge Diagnosis (1) COPD with exacerbation Status: Acute (2) Methamphetamine abuse Status: Chronic (3) Smoker Status: Chronic (4) Elevated brain natriuretic peptide (BNP) level Status: Acute (5) Obesity Status: Chronic (6) Non-compliance Status: Chronic (7) Anxiety Status: Chronic (8) Respiratory distress Status: Resolved Discharge Summary Discharge Physical Exam Allergies: Coded Allergies: buspirone (Verified Allergy, Mild, 05/02/17) Made"legs Shaky" amitriptyline (Verified Allergy, Unknown, 05/02/17) " MAKES ME DO WEIRD THINGS LIKE WALK IN MY SLEEP AND HAVE HALLUCINATIONS." Vitals & I&Os Vital Signs Date Time Temp Pulse Resp B/P (MAP) Pulse Ox O2 Delivery O2 Flow Rate FiO2 08/06/17 09:00 Nasal Cannula 3.00 08/06/17 08:00 98.7 91 20 120/73 (89) 93 08/05/17 06:42 40 General Appearance: Alert, Oriented X3, Cooperative Respiratory: Other (subtle wheezing noted all shay) Hospital Course Hospital course: Patient had a brief hospital course she has a history of multiple hospital stays due to exacerbation of COPD and meth use. She is placed on IV steroids and BiPAP and improved enough to be transferred to fourth floor. Smoking cessation discussed. Overall she improved did not require an antibiotic due to no pneumonia on chest x-ray and overall felt good enough to go home she went to go back to work at [employer] tomorrow so that return to work slip was created. She will of close follow-up with Alondra at [facility] on Thursday. Labs (last 24 hrs) Patient resulted labs reviewed. Discussion & Recommendations Discharge Planning: <30 minutes discharge planning Discharge Home Medications: Active Scripts Active Prednisone 10 Mg Tab.ds.pk 10 Mg PO DAILY Take 6 tabs(60mg)daily,decrease by 1 tab(10MG)daily. Reported Loperamide (Loperamide HCl) 2 Mg Capsule 2 Mg PO UD PRN Sucralfate 1 Gm Tablet 1 Gm PO ACHS LAST FILLED 05/05/17 #120 Pantoprazole Sodium 40 Mg Tablet.dr 40 Mg PO BID LAST FILLED 05/05/17 #60 Glimepiride 1 Mg Tablet 1 Mg PO DAILY PRN Metoprolol Tartrate 25 Mg Tablet 12.5 Mg PO BID TAKES 1/2 (25MG) TABLET / LAST FILLED 04/16/17 #30 Ventolin Hfa (Albuterol Sulfate) 1 Puff Puff 2 Puff IH Q4H PRN 1 PUFF = 90 MCG Trulicity (Dulaglutide) 0.75 Mg/0.5 Ml Pen.injctr 0.75 Mg SQ TH Iprat-Albut 0.5-3(2.5) mg/3 ml (Ipratropium/Albuterol Sulfate) 3 Ml Ampul.neb 3 Ml IH QID PRN Advair 250-50 Diskus (Fluticasone/Salmeterol) 1 Each Blst.w.dev 1 Puff IH BID Spiriva (Tiotropium Martin) 1 Inh Aerp 1 Cap IH DAILY Instructions to patient/family Please see electronic discharge instructions given to patient. Clinical Quality Measures DVT/VTE Risk/Contraindication: Risk Factor Score Per Nursin RFS Level Per Nursing on Admit: 2=Moderate Problem Qualifiers (1) Obesity: Obesity type: unspecified obesity type Obesity classification: unspecified obesity classification Serious obesity comorbidity presence: unspecified whether serious comorbidity present Qualified Codes: E66.9 - Obesity, unspecified RODY ALDANA DO August 06, 2017 10:31
[2017-08-06] MEDS ORDERED: SUCRALFATE 1 GM (CARAFATE) TAB PO SCH (11:00)
[2017-08-06 11:40] VITALS: BP 120/73
[2017-08-06] MEDS ORDERED: RT-ADVAIR HFA 115/21 MCG PER PUFF IH SCH (20:00)
[2017-08-06] MEDS ORDERED: meTOprolol TARTRATE 25 MG (LOPRESSOR) TABLET PO SCH (21:00)
[2017-08-06] MEDS ORDERED: PANTOPRAZOLE 40 MG (PROTONIX) TAB PO SCH (21:00)
[2017-08-07] MEDS ORDERED: UMECLIDINIUM BROMIDE (INCRUSE ELLIPTA) 7'S IH SCH (08:00)
[2017-08-07] MEDS ORDERED: NICOTINE PATCH REMOVAL TP SCH (08:59)
[2017-08-07] MEDS ORDERED: predniSONE 20 MG TAB PO SCH (09:00)
[2017-08-26] MEDS ORDERED: IPRA3AMP IH (16:05)
[2017-08-28] MEDS ORDERED: FLUT1DIS26 IH (10:03)
[2017-08-28] MEDS ORDERED: DIPH25TA31 PO (10:03)
[2017-08-28] MEDS ORDERED: PRD20T PO (10:03)
[2017-08-28] MEDS ORDERED: TIOT18CA2 IH (10:03)
== END 2017-08-06 11:40 | disposition home or self-care (01) | DRG 189 ==
LOC: EDUNIT# 16:37 → ER 16:38 → ICU 17:59 → 4TH 08-05 12:30
PROVIDERS: ADMIT Internal Medicine; ATTEND Internal Medicine
DX: J96.20 Acute and chronic respiratory failure, unspecified whether with hypoxia or hypercapnia (principal); J43.9 Emphysema, unspecified; J81.1 Chronic pulmonary edema; F15.10 Other stimulant abuse, uncomplicated; F17.210 Nicotine dependence, cigarettes, uncomplicated; F41.9 Anxiety disorder, unspecified; G47.30 Sleep apnea, unspecified; I10 Essential (primary) hypertension; F31.9 Bipolar disorder, unspecified; G43.909 Migraine, unspecified, not intractable, without status migrainosus; M25.519 Pain in unspecified shoulder; M54.2 Cervicalgia; E87.70 Fluid overload, unspecified; R79.89 Other specified abnormal findings of blood chemistry; E66.9 Obesity, unspecified; Z68.32 Body mass index [BMI] 32.0-32.9, adult; Z99.81 Dependence on supplemental oxygen; Z91.19 Patient's noncompliance with other medical treatment and regimen; Z91.5 Personal history of self-harm
CPT/HCPCS: 36415; 71045; 80048; 80053; 80306; 82805; 83735; 83880; 84100; 85007; 85025; 85027; 94640; 94760

== ENCOUNTER 2017-08-23 20:32 | Emergency (ER) | payer OTHER ==
[~2017-08-23] VITALS: Ht 170.2 cm; Wt 122.5 kg
[~2017-08-23 20:32] MED LIST changes: +CEFU500T63 PO; +LOPE2CAP PO
[2017-08-23] MEDS ORDERED: RT-ALBUTEROL SULF 2.5 MG/3 ML PRE-MIX VIAL ONE ×2 (20:41→20:46)
[2017-08-23] MEDS ORDERED: RT-ALBUTEROL SULF 2.5 MG/3 ML PRE-MIX VIAL INH STA (20:43)
[2017-08-23] MEDS ORDERED: NS IV 1000 ML 1,000 ML IV SCH (20:43)
[2017-08-23] MEDS ORDERED: ASPIRIN 81 MG CHEW (CHILDREN'S ASA) PO ONE (20:45)
[2017-08-23] MEDS ORDERED: RT-ALBUTEROL/IPRATROPIUM 3 ML (DUONEB) VIAL INH ONE (20:45)
--- OUTSIDE RECORDS SUMMARY | 2017-08-23 20:47 | XMS REPORT ---
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 Active Problem Thrush B37.0 Active 31301225 Problem TMJ (sprain of temporomandibular joint) S03.4XXA Active 30153367 Problem Tobacco abuse Z72.0 Active 15619474 Problem Non morbid obesity due to excess calories E66.09 Active 764800410 Problem Migraine G43.909 Active 43666952 Problem History of MRSA infection Z86.14 Active 033152903 Problem Knee pain, left M25.562 Active 77052440 Problem Obesity, unspecified obesity severity, unspecified obesity type E66.9 Active 602147906 Problem Migraine without aura and without status migrainosus, not intractable G43.009 Active 075494089 Problem Other emphysema J43.8 Active 70865809 Problem Chronic obstructive pulmonary disease with acute exacerbation J44.1 Active 084360534 Problem Intractable cyclical vomiting with nausea G43.A1 Active 38336656 Problem Chronic constipation K59.09 Active 591132554 Problem Acute bronchitis with COPD J44.0 Active 933420016904879 Problem Encounter for tobacco use cessation counseling Z71.6 Active 027428823 Problem Methamphetamine use disorder, moderate, 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 Active 96827102 Problem Chronic bronchitis, unspecified chronic bronchitis type J42 Active 38058436 Problem Viral illness B34.9 Active 02541586 Problem Diabetes E11.9 Active 577641525 Problem Memory loss R41.3 Active 09745571 Problem Left knee pain M25.562 Active 05208777 Problem Dry mouth R68.2 Active 53093631 Problem Yeast vaginitis B37.3 Active 32984105 Problem Generalized anxiety disorder F41.1 Active 05408227 Problem Bipolar disorder with depression F31.30 Active 13482288 Problem Bipolar disorder, unspecified F31.9 Active 32287396 Problem Bipolar disorder, current episode depressed, severe, without psychotic features F31.4 Active 90887978 ALLERGIES Substance Reaction Event Type Date Status Buspar 10 Mg Tablet made legs shaky Non Drug Allergy Feb, Active amitriptyline OD on medication, causes parasonias Non Drug Allergy Feb, Active Benzodiazepines NARC ALERT Broke narc contract Non Drug Allergy Feb Active Narcotic NARC ALERT Broke Narc contract Non Drug Allergy Feb, Active ENCOUNTERS Encounter Location Date Diagnosis [place] [id number] [place] [address] 47477- 0207 Aug, [place] [address] 31908- 2758 Aug, [facility] [address] 55286- 2454 Aug, [facility] [id number] [place] [address] 34775- 7366 July, [facility] [id number] [place] [address] 03879- 7066 July, [facility] [address] 28858- 3770 July, Diabetes E11.9 and Chronic obstructive pulmonary disease with acute exacerbation J44.1 [facility] [address] 05117- 5383 Jun, Chronic obstructive pulmonary disease with acute exacerbation J44.1 ; Diabetes E11.9 and Tobacco abuse Z72.0 [facility] [id number] [place] [address] 90157- 0793 Jun, [facility] [address] [address] [address] 4072 Jun, [facility] [id number] [place] [address] 99666- 1795 May, [facility] [id number] [place] [address] 52211- 3499 May, [facility] [id number] [place] [address] 38633 -4620 17 May, 2017 [facility] [id number] [place] [address] 07227- 9927 16 May, 2017 [place] [id number] [place] [address] 98629- 5529 15 May, 2017 [place] [id number] [place] [address] 41225- 5187 14 May, 2017 Diarrhea, unspecified type R19.7 and Intractable cyclical vomiting with nausea G43.A1 [facility] [id number] [place] [address] 52210- 5856 12 May, 2017 [facility] [id number] [place] [address] 92472- 6529 05 May, 2017 [facility] [id number] [place] [address] 59383- 1011 28 Apr, 2017 COPD exacerbation J44.1 ; Esophageal candidiasis B37.81 ; Other acute gastritis with hemorrhage K29.01 and Acute posthemorrhagic anemia D62 [facility] [id number] [place] [address] 60299- 1847 Apr, Viral illness B34.9 and COPD exacerbation J44.1 [facility] [id number] [place] [address] 14777 -5569 Apr, Shortness of breath R06.02 and Pneumonia of both lower lobes due to infectious organism J18.9 [facility] [id number] [place] [address] 97175 -7007 Mar, COPD with acute exacerbation J44.1 [facility] [address] [address]- 7548 Mar, Chronic obstructive pulmonary disease with acute exacerbation J44.1 and Diabetes E11.9 [facility] [address] [address]- 5250 Mar, [facility] [id number] [place] [address] 43375- 1967 Mar, [facility] [id number] [place] [address] 87064 -6335 Mar, COPD exacerbation J44.1 [facility] [id number] [place] [address] 65863- 3997 Mar, [facility] [address] [place] [address] 88260- 8316 Mar, Migraine G43.909 ; Hypokalemia E87.6 and Type 2 diabetes mellitus without complications E11.9 [facility] [id number] [place] [address] 12166- 1165 Feb, [facility] [id number] [place] [address] 85239- 1205 Feb, [facility] [id number] [place] [address] 73324- 0618 Feb, Methamphetamine use disorder, moderate, 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 ; Major depressive disorder, recurrent, moderate F33.1 ; Anxiety disorder, unspecified F41.9 and Tobacco abuse Z72.0 [facility] [address] [address]- 6647 30 Jan, 2017 Major depressive disorder, recurrent, moderate F33.1 [facility] [address] [place] [address] 76374- 1332 16 Jan, 2017 [facility] [address] [address]- 8656 Jan, [facility] [id number] [place] [address] 98291- 8655 Jan, Major depressive disorder, recurrent, moderate F33.1 [place] [id number] [place] [address] 23490- 7420 Jan, Major depressive disorder, recurrent, moderate F33.1 ; Anxiety disorder, unspecified F41.9 ; Methamphetamine use disorder, moderate, 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 and Tobacco abuse Z72.0 [place] [id number] [place] [address] 91755- 8636 Jan, [place] [id number] [place] [address] 60832- 0726 Jan, Chronic obstructive pulmonary disease with acute exacerbation J44.1 and Diabetes E11.9 [place] [id number] [place] [address] 44893- 6558 Jan, [place] [id number] [place] [address] 44416- 2486 Jan, [place] [id number] [place] [address] 42876- 4008 Dec, Acute respiratory failure with hypoxia J96.01 ; Chronic bronchitis, unspecified chronic bronchitis type J42 and Tobacco use Z72.0 [place] [id number] [place] [address] 96855- 7745 Dec, [facility] [address] [place] [address] [phone] Nov, Dental caries K02.9 and Dental examination Z01.20 [place] [address] [place] [address] 35353- 0183 Nov, Major depressive disorder, recurrent, moderate F33.1 ; Anxiety disorder, unspecified F41.9 and 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 [facility] [address] [place] [address] [phone] Oct, Dental examination Z01.20 [place] [address] [address]- 9905 Oct, [facility] [id number] [place] [address] 45768- 6446 Oct, Diabetes E11.9 and Thrush B37.0 [facility] [id number] [place] [address] 04863- 6236 Oct, [facility] [id number] [place] [address] 88708- 7918 Oct, [facility] [id number] [place] [address] 94287- 0735 Oct, [facility] [id number] [place] [address] 76682- 9161 Sep, Major depressive disorder, recurrent, moderate F33.1 ; Anxiety disorder, unspecified F41.9 and Bipolar disorder, unspecified F31.9 [facility] [id number] [place] [address] 60840- 5911 Sep, Acute exacerbation of chronic obstructive pulmonary disease (COPD) J44.1 and Migraine G43.909 [facility] [id number] [place] [address] 28805- 0178 Sep, [facility] [id number] [place] [address] [phone] Sep, [facility] [id number] [place] [address] 74280- 6105 Sep, Acute exacerbation of chronic obstructive pulmonary disease (COPD) J44.1 [facility] [address] [address] -7353 Sep, Acute exacerbation of chronic obstructive pulmonary disease (COPD) J44.1 [facility] [address] [address]- 0075 Aug, [facility] [id number] [place] [address] 26555- 5946 Aug, Major depressive disorder, recurrent, moderate F33.1 ; Anxiety disorder, unspecified F41.9 and 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 [facility] [id number] [place] [address] 49661- 6043 19 Aug, 2016 Wheezing R06.2 ; Non morbid obesity due to excess calories E66.09 ; Migraine without aura and without status migrainosus, not intractable G43.009 and Tobacco abuse Z72.0 [facility] [id number] [place] [address] [phone] Aug, 2016 Encounter for dental examination Z01.20 [facility] [address] 63393- 4868 02 Aug, 2016 Major depressive disorder, recurrent, moderate F33.1 ; Anxiety disorder, unspecified F41.9 and 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 [facility] [address] 06232- 0913 July, [facility] [id number] [place] [address] 66155- 1332 July, [facility] [address] 31477- 7237 July, [facility] [id number] [place] [address] 67730- 7513 July, Diabetes E11.9 [facility] [address] 00431- 0274 Jun, Major depressive disorder, recurrent, moderate F33.1 [facility] [id number] [place] [address] 64923- 9864 Jun, Major depressive disorder, recurrent, moderate F33.1 ; 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 ; Generalized anxiety disorder F41.1 and Bipolar disorder, unspecified F31.9 [facility] [id number] [place] [address] 21076- 7452 Jun, Diabetes E11.9 ; Migraine G43.909 ; Thrush B37.0 and Wheezing R06.2 [facility] [id number] [place] [address] [phone] Jun, Dental examination Z01.20 [facility] [id number] [place] [address] 15782- 7744 Jun, [facility] [id number] [place] [address] 79260- 2402 Jun, Major depressive disorder, recurrent, moderate F33.1 ; Anxiety disorder, unspecified F41.9 and 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 [facility] [id number] [place] [address] 75001- 4908 Jun, [facility] [id number] [place] [address] 47793- 6884 Jun, Wheezing R06.2 [facility] [id number] [place] [address] [phone] Jun, Dental caries K02.9 [facility] [id number] [place] [address] 19658- 4066 Jun, Major depressive disorder, recurrent, moderate F33.1 ; Anxiety disorder, unspecified F41.9 and 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 [facility] [id number] [place] [address] 93749- 3221 Jun, RLQ abdominal pain R10.31 ; Diabetes E11.9 ; Obesity, unspecified obesity severity, unspecified obesity type E66.9 ; Wheezing R06.2 and Abnormal urinalysis R82.90 [facility] [id number] [place] [address] 39909- 1193 May, [facility] [id number] [place] [address] 45033- 0506 May, Well woman exam Z01.419 ; Breast cancer screening Z12.39 ; Cervical cancer screening Z12.4 ; Urinary frequency R35.0 ; Edema, unspecified type R60.9 and Chronic constipation K59.09 [facility] [address] [place] [address] 00189- 2251 May, Major depressive disorder, recurrent, moderate F33.1 ; Anxiety disorder, unspecified F41.9 and 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 [facility] [address] [place] [address] [phone] May, Dental examination Z01.20 [facility] [id number] [place] [address] 79319- 9585 May, [facility] [id number] [place] [address] 63123- 9972 May, [facility] [id number] [place] [address] 72068- 4261 May, Chronic constipation K59.09 [facility] [id number] [place] [address] 62895- 2355 Apr, [facility] [id number] [place] [address] 82070- 3470 Apr, Major depressive disorder, recurrent, moderate F33.1 ; Anxiety disorder, unspecified F41.9 and 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 [facility] [id number] [place] [address] 58487- 1723 Apr, [facility] [id number] [place] [address] 37918- 5462 Mar, Major depressive disorder, recurrent, moderate F33.1 [facility] [id number] [place] [address] 09674- 3076 Mar, Major depressive disorder, recurrent, moderate F33.1 ; Generalized anxiety disorder F41.1 and Bipolar I disorder, most recent episode depressed with anxious distress F31.30 [facility] [address] [place] [address] 49192- 3580 17 [place], 2017 Diabetes E11.9 ; Non morbid obesity due to excess calories E66.09 ; Breast cancer screening Z12.39 and Encounter for immunization Z23 [place] [address] 20564- 5791 Mar, Major depressive disorder, recurrent, moderate F33.1 ; Anxiety disorder, unspecified F41.9 and 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 [place] [address] 37562- 8278 Mar, [place] [address] 47236- 5750 Feb, Major depressive disorder, recurrent, moderate F33.1 ; Anxiety disorder, unspecified F41.9 and 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 [place] [address] 92171- 8645 Feb, [place] [address] 39774- 0810 Feb, [place] [address] 24575- 1646 Jan, Major depressive disorder, recurrent, moderate F33.1 ; Generalized anxiety disorder F41.1 and Bipolar disorder, current episode depressed, severe, without psychotic features F31.4 [place] [id number] [place] [address] 37108- 2327 Jan, Major depressive disorder, recurrent, moderate F33.1 ; Anxiety disorder, unspecified F41.9 and 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 [place] [id number] [place] [address] 91971- 8249 16 Jan, 2016 Bronchitis J40 [place] [address] 64106- 4614 15 Jan, 2016 [place] [id number] [place] [address] 49927- 6355 Jan, [place] [id number] [address]- 9741 Jan, Elbow injury, right, initial encounter S59.901A ; Multiple contusions T14.8 and Cervical strain, acute, initial encounter S16.1XXA [facility] [address] [address]- 2120 Dec, Major depressive disorder, recurrent, moderate F33.1 ; Generalized anxiety disorder F41.1 and Bipolar disorder with depression F31.30 [place] [address] [address]- 4383 Dec, [facility] [id number] [place] [address] 55938- 9823 Dec, [facility] [address] [address]- 9201 Dec, [facility] [address] [address]- 1716 Dec, [facility] [address] [address]- 5866 Dec, Yeast infection B37.9 [place] [address] [address]- 4414 Dec, Pneumonia of both lungs due to methicillin resistant Staphylococcus aureus (MRSA), unspecified part of lung J15.212 and Benzodiazepine overdose, accidental or unintentional, subsequent encounter T42.4X1D [facility] [id number] [address]- 7692 Dec, [facility] [id number] [address]- 7031 Dec, [place] [address] [place] [address] 87825- 8310 Dec, Knee pain, left M25.562 and Edema, unspecified type R60.9 [facility] [address] [address]- 1667 Dec, [place] [address] [place] [address] 46334- 7407 Dec, Anxiety disorder, unspecified F41.9 and Bipolar disorder, unspecified F31.9 [place] [id number] [place] [address] 42975- 2850 Nov, Major depressive disorder, recurrent, moderate F33.1 ; Anxiety disorder, unspecified F41.9 and 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 [place] [id number] [place] [address] 91753- 7100 Nov, [place] [id number] [place] [address] 59058- 9592 Nov, Migraine without aura and without status migrainosus, not intractable G43.009 [place] [id number] [place] [address] 21963- 7480 Nov, Migraine G43.909 [place] [id number] [place] [address] 71623- 6850 Nov, [place] [id number] [place] [address] 62781- 4531 Nov, Major depressive disorder, recurrent, moderate F33.1 ; Anxiety disorder, unspecified F41.9 and 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 [place] [id number] [place] [address] 70494- 8108 Oct, Chronic constipation K59.09 and Obesity, unspecified obesity severity, unspecified obesity type E66.9 [place] [id number] [place] [address] 39457- 4378 Oct, Obesity, unspecified obesity severity, unspecified obesity type E66.9 ; Chronic constipation K59.09 and Anxiety disorder, unspecified F41.9 [place] [id number] [place] [address] 76799- 1082 Oct, [place] [id number] [place] [address] 05222- 5347 Sep, Diabetes E11.9 ; Edema, unspecified type R60.9 ; Varicose vein of leg I83.90 and Obesity, unspecified obesity severity, unspecified obesity type E66.9 [place] [id number] [place] [address] 89900- 0711 Sep, Edema, unspecified type R60.9 ; Diabetes E11.9 and Knee pain , left M25.562 [place] [id number] [place] [address] 76074- 7481 Sep, [place] [id number] [place] [address] 19437- 2510 Sep, [place] [id number] [place] [address] 64391- 8564 Sep, Major depressive disorder, recurrent, moderate F33.1 ; Generalized anxiety disorder F41.1 and Bipolar disorder, unspecified F31.9 [place] [id number] [place] [address] 97280- 3294 Aug, Chondromalacia of left knee M94.262 [place] [id number] [place] [address] 42530- 8520 Aug, Major depressive disorder, recurrent, moderate F33.1 ; Anxiety disorder, unspecified F41.9 and 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 [place] [id number] [place] [address] 79286- 0345 Aug, [place] [id number] [place] [address] 61818- 0692 Aug, Osteoarthritis of left knee M17.9 [place] [id number] [place] [address] 26760- 6770 Aug, [place] [id number] [place] [address] 13492- 6480 July, Major depressive disorder, recurrent, moderate F33.1 ; Anxiety disorder, unspecified F41.9 and 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 [facility] [id number] [place] [address] 32478- 1909 July, [facility] [id number] [place] [address] 47144- 9564 July, Chronic constipation K59.09 [facility] [id number] [place] [address] [phone] Jun, [facility] [id number] [place] [address] [phone] Jun, [facility] [id number] [place] [address] [phone] 14 Jun, 2015 Osteoarthritis of left knee M17.9 [facility] [id number] [place] [address] [phone] Jun, [facility] [id number] [place] [address] [phone] Jun, Generalized anxiety disorder F41.1 ; Bipolar disorder, unspecified F31.9 and Major depressive disorder, recurrent, moderate F33.1 [facility] [id number] [place] [address] 58162- [phone] Jun, Migraine G43.909 [facility] [id number] [place] [address] [phone] Jun, Left knee pain M25.562 ; Chronic constipation K59.09 ; Dry mouth R68.2 ; Yeast vaginitis B37.3 and Memory loss R41.3 [facility] [id number] [place] [address] 80774- 7608 Jun, [facility] [id number] [place] [address] 97617- 4209 May, [facility] [id number] [place] [address] 36792- 3166 May, [address] [address] 4417 May, [address] [id number] [place] [address] 72314- 5006 May, [address] [id number] [place] [address] 18669- 3977 May, Acute bronchitis with COPD J44.0 ; Knee pain, left M25.562 and Encounter for tobacco use cessation counseling Z71.6 [address] [place] [id number] [place] [address] 41987- 9416 May, [address] [id number] [place] [address] 49865- 4101 Apr, Diabetes E11.9 ; TMJ (sprain of temporomandibular joint) S03.4XXA ; Tobacco abuse Z72.0 ; Migraine G43.909 and Anxiety F41.9 [address] [id number] [place] [address] 78962- 0158 Apr, Generalized anxiety disorder F41.1 and Bipolar disorder, unspecified F31.9 [place] [id number] [place] [address] 58566- 2786 Apr, Major depressive disorder, recurrent, moderate F33.1 ; Anxiety disorder, unspecified F41.9 and 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 [address] [id number] [place] [address] 49177- 7231 Apr, [address] [place] [id number] [place] [address] 75970- 7688 Mar, [place] [id number] [place] [address] 25787- 7387 Feb, [address] [id number] [place] [address] 68143- 9003 Feb, Major depressive disorder, recurrent, moderate F33.1 ; Anxiety disorder, unspecified F41.9 and 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 [facility] [id number] [place] [address] 61087- 8544 Feb, [address] [address] 47007- 2310 Feb, Generalized anxiety disorder F41.1 and Bipolar disorder, unspecified F31.9 [address] [address] 10157- 4848 Jan, [address] [address] 08428- 1377 Jan, [address] [address] 30509- 6832 Jan, Bipolar disorder, unspecified F31.9 and Generalized anxiety disorder F41.1 [address] [address] 85102- 4953 Dec, [address] [address] 07413- 9604 Dec, Bipolar disorder, unspecified F31.9 and Generalized anxiety disorder F41.1 [address] [address] 23390- 8974 Dec, Generalized anxiety disorder F41.1 and Major depressive disorder, recurrent, moderate F33.1 [place] [id number] [place] [address] 19286- 8895 Oct, Headache 784.0 ; Cough 786.2 ; Vomiting and diarrhea 787.03 and Dysuria 788.1 [address] [id number] [place] [address] 37674- 0952 Aug, [address] [address] 08661- 8206 Aug, Headache 784.0 and Shortness of breath 786.05 [address] [address] 98125- 1377 Aug, [facility] [place] [facility] [address] [facility] [id number] [place] [address]- 9249 Aug, Migraine 346.90 [facility] [place] [facility] [address] [id number] [address]- 1266 14 Jun, 2014 [facility] [place] [facility] [address] [facility] [id number] [place] [address]- 9205 Jun, [facility] [place] [facility] [address] [id number] [address]- 0946 May, [facility] [place] [facility] [address] [id number] [place] [address]- 0523 May, [facility] [place] [facility] [address] [facility] [id number] [place] [address]- 1409 May, [facility] [place] [facility] [address] [facility] [id number] [place] [address]- 8364 May, [facility] [place] [facility] [address] [facility] [id number] [address]- 9717 May, [facility] [place] [facility] [address] [facility] [id number] [place] [address]- 5129 May, [facility] [place] [facility] [address] [facility] [id number] [place] [address]- 6440 Apr, [facility] [place] [facility] [address] [facility] [id number] [address]- 8968 Apr, [facility] [place] [facility] [address] [facility] [id number] [place] [address]- 6931 Apr, [facility] [place] [facility] [address] [facility] [id number] [place] [address]- 8166 Apr, [facility] [place] [facility] [address] [facility] [id number] 3436 Apr, [facility] [place] [facility] [address] [facility] [id number] [place] [address]- 9065 Mar, [facility] [place] [facility] [address] [id number] [place] [address]- 7010 Mar, [facility] [place] [facility] [address] [id number] [place] [address]- 3436 Mar, [facility] [place] [facility] [address] [id number] [place] [address]- 7089 Mar, [facility] [place] [facility] [address] [id number] [place] [address]- 5176 Feb, [facility] [place] [facility] [address] [id number] [place] [address]- 5587 Feb, [facility] [place] [facility] [address] [id number] [place] [address]- 0571 Feb, [facility] [place] [facility] [address] [id number] [place] [address]- 0895 Feb, [facility] [place] [facility] [address] [id number] [place] [address]- 9607 Feb, [facility] [place] [facility] [address] [id number] [place] [address]- 1592 Feb, [facility] [place] [facility] [address] [id number] [place] [address]- 5111 Feb, [facility] [place] [facility] [address] [id number] [place] [address]- 6743 Feb, [facility] [place] [facility] [address] [id number] [place] [address]- 3300 Feb, [facility] [place] [facility] [address] [id number] [place] [address]- 0427 Feb, [facility] [place] [facility] [address] [id number] [place] [address]- 4372 Feb, [facility] [place] [facility] [address] [id number] [place] [address]- 4972 Feb, [facility] [place] [facility] [address] [id number] [place] [address]- 0008 Jan, [facility] [place] [facility] [address] [id number] [place] [address]- 5527 Jan, [facility] [place] [facility] [address] [id number] [place] [address]- 8185 Dec, [facility] [place] [facility] [address] [id number] [place] [address]- 4792 Dec, [facility] [place] [facility] [address] [id number] [place] 7895 Dec, [facility] [place] [facility] [address] [id number] [place] [address]- 1896 Dec, [facility] [place] [facility] [address] [id number] [place] [address]- 3657 Dec, [facility] [place] [facility] [address] [id number] [place] [address]- 7152 Dec, [facility] [place] [facility] [address] [id number] [place] [address]- 7863 Sep, [facility] [place] [facility] [address] [id number] [place] [address]- 9970 Sep, [facility] [place] [facility] [address] [id number] [place] [address]- 4751 Sep, [facility] [place] [facility] [address] [id number] [place] [address]- 1594 Sep, [facility] [place] [facility] [address] [id number] [place] [address]- 1004 Sep, [facility] [place] [facility] [address] [id number] [place] [address]- 9575 Sep, [facility] [place] [facility] [address] [id number] [place] [address]- 1798 Sep, [facility] [place] [facility] [address] [id number] [place] [address]- 3129 Sep, [facility] [place] [facility] [address] [id number] [place] [address]- 5169 06 Sep, 2013 [facility] [place] [facility] [address] [id number] [place] [address]- 5437 06 Sep, 2013 [facility] [place] [facility] [address] [id number] [place] [address]- 0138 24 Aug, 2013 [facility] [place] [facility] [address] [id number] [place] [address]- 8616 Aug, [facility] [place] [facility] [address] [id number] [place] [address]- 3725 Aug, [facility] [place] [facility] [address] [id number] [place] [address]- 4728 Aug, [facility] [place] [facility] [address] [id number] [place] [address]- 7394 Aug, [facility] [place] [facility] [address] [id number] [place] [address]- 1328 Aug, [facility] [place] [facility] [address] [id number] [place] [address]- 3398 Aug, [facility] [place] [facility] [address] [id number] [place] [address]- 5995 Aug, [facility] [place] [facility] [address] [id number] [place] [address]- 9131 Aug, [facility] [place] [facility] [address] [id number] [place] [address]- 8315 Aug, [facility] [place] [facility] [address] [id number] [place] [address]- 7813 Aug, [facility] [place] [facility] [address] [id number] [place] [address]- 7666 Aug, [facility] [place] [facility] [address] [id number] [place] [address]- 6233 Aug, [facility] [place] [facility] [address] [id number] [place] [address]- 5583 July, [facility] [place] [facility] [address] [id number] [place] [address]- 2083 July, [facility] [place] [facility] [address] [id number] [place] [address]- 2143 July, [facility] [place] [facility] [address] [id number] [place] 1229 July, [facility] [place] [facility] [address] [id number] [place] [address]- 0195 July, [facility] [place] [facility] [address] [id number] [place] [address]- 7995 July, [facility] [place] [facility] [address] [id number] [place] [address]- 5101 July, [facility] [place] [facility] [address] [id number] [place] [address]- 6088 Jun, [facility] [place] [facility] [address] [id number] [place] [address]- 0253 Jun, [facility] [place] [facility] [address] [id number] [place] [address]- 8771 Jun, [facility] [place] [facility] [address] [id number] [place] [address]- 9690 Jun, [facility] [place] [facility] [address] [id number] [place] [address]- 2749 Jun, [facility] [place] [facility] [address] [id number] [place] [address]- 9073 Jun, [facility] [place] [facility] [address] [id number] [place] [address]- 1740 Jun, [facility] [place] [facility] [address] [id number] [place] [address]- 6711 May, [facility] [place] [facility] [address] [id number] [place] [address]- 4151 May, [facility] [place] [facility] [address] [id number] [address]- 4328 14 May, 2013 [facility] [place] [facility] [address] [id number] [place] [address]- 6243 14 May, 2013 [facility] [place] [facility] [address] [id number] [place] [address]- 0713 13 May, 2013 [facility] [place] [facility] [address] [facility] [id number] [place] [address]- 1798 13 May, 2013 [facility] [place] [facility] [address] [id number] [place] [address]- 3200 10 May, 2013 [facility] [place] [facility] [address] [id number] [place] [address]- 8887 10 May, 2013 [facility] [place] [facility] [address] [facility] [id number] [place] [address]- 4435 07 May, 2013 [facility] [place] [facility] [address] [facility] [id number] [place] [address]- 0727 26 Apr, 2013 [facility] [place] [facility] [address] [facility] [id number] [place] [address]- 3937 26 Apr, 2013 [facility] [place] [facility] [address] [facility] [id number] [place] [address]- 2846 18 Apr, 2013 [facility] [place] [facility] [address] [facility] [id number] [place] [address]- 7721 15 Apr, 2013 [facility] [place] [facility] [address] [facility] [id number] [place] [address]- 5649 15 Apr, 2013 [facility] [place] [facility] [address] [facility] [id number] [address]- 4335 11 Apr, 2013 [facility] [place] [facility] [address] [facility] [id number] [place] [address]- 8150 05 Apr, 2013 [facility] [place] [facility] [address] [facility] [id number] [address]- 7460 05 Apr, 2013 [facility] [place] [facility] [address] [facility] [id number] [place] [address]- 4370 05 Apr, 2013 [facility] [place] [facility] [address] [id number] [place] [address]- 1131 Apr, [facility] [place] [facility] [address] [id number] [place] [address]- 9445 Mar, [facility] [place] [facility] [address] [id number] [place] [address]- 1303 Mar, [facility] [place] [facility] [address] [id number] [place] [address]- 2902 Mar, [facility] [place] [facility] [address] [id number] [place] [address]- 1763 Mar, [facility] [place] [facility] [address] [id number] [place] [address]- 2633 Mar, [facility] [place] [facility] [address] [id number] [place] [address]- 2926 Mar, [facility] [place] [facility] [address] [id number] [place] [address]- 3875 Mar, [facility] [place] [facility] [address] [id number] [place] [address]- 3192 Mar, [facility] [place] [facility] [address] [id number] [place] [address]- 6776 Feb, [facility] [place] [facility] [address] [id number] [place] [address]- 5715 Feb, [facility] [place] [facility] [address] [id number] [place] [address]- 7207 Jan, [facility] [place] [facility] [address] [id number] [place] [address]- 2519 Jan, [facility] [place] [facility] [address] [id number] [place] [address]- 2845 15 Jan, 2013 [facility] [place] [facility] [address] [id number] [place] [address]- 9555 15 Jan, 2013 [facility] [place] [facility] [address] [id number] [place] [address]- 2322 Jan, [facility] [place] [facility] [address] [id number] [place] [address]- 2684 Jan, [facility] [place] [facility] [address] [id number] [place] [address]- 8069 Jan, [facility] [place] [facility] [address] [facility] [id number] [place] [address]- 0384 Jan, [facility] [place] [facility] [address] [id number] [place] [address]- 2025 Dec, [facility] [place] [facility] [address] [id number] [place] [address]- 7005 Dec, [facility] [place] [facility] [address] [id number] [place] [address]- 3881 Dec, [facility] [place] [facility] [address] [id number] [place] [address]- 2727 Nov, [facility] [place] [facility] [address] [id number] [place] [address]- 9559 Nov, [facility] [place] [facility] [address] [facility] [id number] [place] [address]- 7226 Nov, [facility] [place] [facility] [address] [facility] [id number] [place] [address]- 3791 Nov, [facility] [place] [facility] [address] [id number] [place] [address]- 2399 Nov, [facility] [place] [facility] [address] [id number] [place] [address]- 2548 Nov, [facility] [place] [facility] [address] [id number] [place] [address]- 6296 Oct, [facility] [place] [facility] [address] [facility] [id number] [place] [address]- 4271 Oct, [facility] [place] [facility] [address] [facility] [id number] [place] [address]- 5840 Sep, [facility] [place] [facility] [address] [id number] [place] [address]- 4313 Sep, [facility] [place] [facility] [address] [id number] [place] [address]- 3302 Sep, [facility] [place] [facility] [address] [id number] [place] [address]- 2826 Sep, [facility] [place] [facility] [address] [id number] [place] [address]- 1321 Sep, [facility] [place] [facility] [address] [id number] [place] [address]- 6674 Sep, [facility] [place] [facility] [address] [id number] [place] [address]- 0619 Sep, [facility] [place] [facility] [address] [id number] [place] [address]- 6778 Aug, [facility] [place] [facility] [address] [id number] [place] [address]- 7190 Aug, [facility] [place] [facility] [address] [id number] [place] [address]- 2839 Aug, [facility] [place] [facility] [address] [id number] [place] [address]- 9344 Aug, [facility] [place] [facility] [address] [id number] [place] [address]- 4991 Aug, [facility] [place] [facility] [address] [id number] [place] [address]- 0599 Aug, [facility] [place] [facility] [address] [id number] [place] [address]- 1350 July, [facility] [place] [facility] [address] [id number] [place] [address]- 7801 July, [facility] [place] [facility] [address] [id number] [place] [address]- 0027 July, [facility] [place] [facility] [address] [id number] [place] [address]- 3800 July, [facility] [address] [id number] [place] [address]- 7827 July, [facility] [place] [facility] [address] [id number] [place] [address]- 0934 July, [facility] [address] [id number] [place] [address]- 2153 Jun, [facility] [place] [facility] [address] [id number] [place] [address]- 4410 Jun, [facility] [address] [id number] [place] [address]- 8986 Jun, [facility] [address] [id number] [place] [address]- 3495 Jun, [facility] [place] [facility] [address] [id number] [place] [address]- 6637 Jun, [facility] [place] [facility] [address] [id number] [place] [address]- 9606 Jun, [facility] [place] [facility] [address] [id number] [place] [address]- 3747 Jun, [facility] [place] [facility] [address] [id number] [place] [address]- 4832 May, [facility] [place] [facility] [address] [id number] [place] [address]- 0803 May, [facility] [place] [facility] [address] [id number] [place] [address]- 0026 Apr, [facility] [place] [facility] [address] [id number] [place] [address]- 5597 Apr, [facility] [place] [facility] [address] [id number] [place] [address]- 9865 Apr, [facility] [place] [facility] [address] [id number] [place] [address] Apr, [facility] [place] [facility] [address] [id number] [place] [address] 12 Apr, 2012 [facility] [address] [id number] [place] [address] 08 Apr, 2012 [facility] [place] [facility] [address] [id number] [place] [address] 07 Apr, 2012 [facility] [place] [facility] [address] [id number] [place] [address] 2546 07 Apr, 2012 [facility] [place] [facility] [address] [id number] [place] [address] 2542 06 Apr, 2012 [facility] [place] [facility] [address] [id number] [place] [address] Apr, 2012 [facility] [place] [facility] [address] [id number] [place] [address] Apr, [facility] [place] [facility] [address] [id number] [place] [address] 30 Mar, 2012 [facility] [address] [id number] [place] [address] Mar, [facility] [address] [id number] [place] [address] Mar, [facility] [place] [facility] [address] [id number] [place] [address] Mar, [facility] [place] [facility] [address] [id number] [place] [address] Mar, [facility] [place] [facility] [address] [id number] [place] [address] 2549 Mar, [facility] [place] [facility] [address] [id number] [place] [address]- [address] Mar, [facility] [place] [facility] [address] [id number] [place] [address]40 15 Mar, 2012 [facility] [place] [facility] [address] [id number] [place] [address] Mar, [facility] [address] [id number] [place] [address] Mar, [facility] [place] [facility] [address] [id number] [place] [address] Mar, [facility] [place] [facility] [address] [id number] [place] [address] Mar, [facility] [place] [facility] [address] [id number] [place] [address] Mar, [facility] [address] [id number] [place] [address] Feb, [facility] [place] [facility] [address] [id number] [place] [address] Feb, [facility] [place] [facility] [address] [id number] [place] [address]- [address] Feb, [facility] [place] [facility] [address] [id number] [place] [address] 18 Feb, 2012 [facility] [address] [id number] [place] [address] Feb, [facility] [place] [facility] [address] [id number] [place] [address]- [address] Feb, [facility] [place] [facility] [address] [id number] [place] [address] 10 Feb, 2012 [facility] [place] [facility] [address] [id number] [place] [address] 3979 10 Feb, 2012 [facility] [place] [facility] [address] [id number] [place] [address] 36[address] Feb, [facility] [place] [facility] [address] [id number] [place] [address]- 69[address] Feb, [facility] [place] [facility] [address] [id number] [place] [address]- [address] 06 Feb, 2012 [facility] [place] [facility] [address] [id number] [place] [address] 05 Feb, 2012 [facility] [address] [id number] [place] [address]- [address] Feb, [facility] [place] [facility] [address] [id number] [place] [address]- [address] Feb, [facility] [address] [id number] [place] [address]- [address] Feb, [facility] [place] [facility] [address] [id number] [place] [address]- [address] Jan, [facility] [address] [id number] [place] [address]- [address] Jan, [facility] [place] [facility] [address] [facility] [id number] [place] [address] Jan, [facility] [place] [facility] [address] [facility] [id number] [place] [address] Jan, [facility] [place] [facility] [address] [id number] [place] [address]- 69[address] Dec, [facility] [place] [facility] [address] [facility] [id number] [place] [address]- [address] Dec, [facility] [address] [facility] [id number] [place] [address]- [address] Dec, [facility] [place] [facility] [address] [facility] [id number] [place] [address]- [address] Dec, [facility] [place] [facility] [address] [facility] [id number] [place] [address]- [address] Dec, [facility] [place] [facility] [address] [facility] [id number] [place] [address]- [address] Dec, [facility] [place] [facility] [address] [facility] [id number] [place] [address] 1986 Dec, [facility] [place] [facility] [address] [facility] [id number] [place] [address]- [address] Dec, [facility] [place] [facility] [address] [id number] [place] [address]- [address]293 07 Dec, 2011 [facility] [place] [facility] [address] [id number] [place] [address]- [address]26 04 Dec, 2011 [facility] [place] [facility] [address] [id number] [place] [address]- [address]296 03 Dec, 2011 [facility] [place] [facility] [address] [id number] [place] [address]- 6676 25 Sep, 2011 [facility] [place] [facility] [address] [id number] [place] [address]- 9152 24 Sep, 2011 [facility] [place] [facility] [address] [id number] [place] [address]- [address] 20 Sep, 2011 [facility] [place] [facility] [address] [id number] [place] [address]- 6321 19 Sep, 2011 [facility] [place] [facility] [address] [id number] [place] [address] 17 Sep, 2011 [facility] [place] [facility] [address] [id number] [place] [address]- 0727 16 Sep, 2011 [facility] [place] [facility] [address] [id number] [place] [address] 14 Sep, 2011 [facility] [place] [facility] [address] [id number] [place] [address]- 275[address] 13 Sep, 2011 [facility] [place] [facility] [address] [id number] [place] [address]80 12 Sep, 2011 [facility] [place] [facility] [address] [id number] [place] [address]- 8811 07 Sep, 2011 [facility] [place] [facility] [address] [id number] [place] [address]- 35[address] 06 Sep, 2011 [facility] [place] [facility] [address] [id number] [place] [address]- 69[address] 06 Sep, 2011 [facility] [place] [facility] [address] [id number] [address] Nov, [facility] [place] [facility] [address] [id number] [place] [address] Oct, [facility] [place] [facility] [address] [id number] [place] [address] Oct, [facility] [place] [facility] [address] [id number] [place] [address] Oct, [facility] [place] [facility] [address] [id number] [place] [address] Oct, [facility] [place] [facility] [address] [id number] [place] [address] Oct, [facility] [place] [facility] [address] [id number] [place] [address] Oct, [facility] [place] [facility] [address] [id number] [place] [address] Oct, [facility] [place] [facility] [address] [id number] [place] [address] Oct, [facility] [place] [facility] [address] [id number] [place] [address] Oct, [facility] [place] [facility] [address] [id number] [place] [address] Oct, [facility] [place] [facility] [address] [id number] [place] [address] Oct, [facility] [place] [facility] [address] [id number] [place] [address] Sep, [facility] [place] [facility] [address] [id number] [place] [address] Sep, [facility] [place] [facility] [address] [id number] [place] [address] Sep, [facility] [place] [facility] [address] [id number] [place] [address] Sep, [facility] [place] [facility] [address] [id number] [place] [address] 10 Sep, 2011 [facility] [place] [facility] [address] [id number] [place] [address] Sep, [facility] [place] [facility] [address] [id number] [place] [address] Aug, [facility] [place] [facility] [address] [id number] [place] [address] July, [facility] [place] [facility] [address] [id number] [place] [address] July, [facility] [place] [facility] [address] [id number] [place] [address] Jun, [facility] [place] [facility] [address] [id number] [place] [address] 1396 Jun, [facility] [place] [facility] [address] [id number] [place] [address] Jun, [facility] [place] [facility] [address] [id number] [place] [address]697 Jun, [facility] [place] [facility] [address] [id number] [place] [address] Jun, [facility] [place] [facility] [address] [id number] [place] [address] Jun, [facility] [place] [facility] [address] [id number] [place] [address] Jun, [facility] [place] [facility] [address] [id number] [place] [address] Jun, [facility] [place] [facility] [address] [id number] [place] [address] 2739 Jun, [facility] [place] [facility] [address] [id number] [place] [address] Jun, [facility] [place] [facility] [address] [id number] [place] [address] 6486 Jun, [facility] [place] [facility] [address] [id number] [place] [address] 7626 19 May, 2011 [facility] [place] [facility] [address] [id number] [place] [address]- 2616 16 May, 2011 [facility] [place] [facility] [address] [id number] [place] [address] 14 May, 2011 [facility] [place] [facility] [address] [id number] [place] [address] 130[address] 06 May, 2011 [facility] [place] [facility] [address] [id number] [place] [address] Apr, [facility] [place] [facility] [address] [id number] [place] [address] 58[address] Apr, [facility] [place] [facility] [address] [id number] [place] [address] 9026 Apr, [facility] [place] [facility] [address] [id number] [place] [address] 69[address] Apr, [facility] [place] [facility] [address] [id number] [place] [address] 69[address] Apr, [facility] [place] [facility] [address] [id number] [place] [address] 8766 Apr, [facility] [place] [facility] [address] [id number] [place] [address] 56[address] Apr, [facility] [place] [facility] [address] [id number] [place] [address] 4[address] Apr, [facility] [place] [facility] [address] [id number] [place] [address] 3209 Mar, [facility] [place] [facility] [address] [id number] [place] [address] 3331 Mar, [facility] [place] [facility] [address] [facility] [id number] [place] [address]652 Mar, [facility] [place] [facility] [address] [id number] [place] [address]- 4437 18 Mar, 2011 [facility] [address] [id number] [place] [address] 1424 17 Mar, 2011 [facility] [place] [facility] [address] [id number] [place] [address]- 4216 13 Mar, 2011 [facility] [address] [id number] [place] [address] 3173 Mar, [facility] [place] [facility] [address] [id number] [place] [address] 1530 Mar, [facility] [address] [id number] [place] [address] 8809 Mar, [facility] [place] [facility] [address] [id number] [place] [address] 57[address] Mar, [facility] [address] [id number] [place] [address] Mar, [facility] [address] [id number] [place] [address] 3813 Mar, [facility] [address] [id number] [place] [address]- 7954 Mar, [facility] [address] [id number] [place] [address] 4589 Mar, [facility] [place] [facility] [address] [id number] [place] [address]1 Mar, [facility] [place] [facility] [address] [id number] [place] [address]- 3795 Mar, [facility] [place] [facility] [address] [id number] [place] [address] 8716 Feb, [facility] [place] [facility] [address] [id number] [place] [address] 7676 Feb, [facility] [place] [facility] [address] [id number] [place] [address] 4326 Feb, [facility] [address] [id number] [address] Jan, [facility] [address] [address] Jan, [facility] [address] [address] 47[address] Jan, [facility] [address] [id number] [address] Dec, [facility] [address] [id number] [address] 6914 Dec, [facility] [id number] [place] [address] Nov, [facility] [address] [address] 4735 Oct, [facility] [address] [address] 9652 Oct, [facility] [address] [address] Oct, [facility] [address] [address] 8628 Sep, [facility] [address] [address] 9968 Apr, [facility] [address] [id number] [address] 47[address] Feb, [facility] [address] [id number] [address] Jan, IMMUNIZATIONS No Known Immunizations SOCIAL HISTORY Never Assessed REASON FOR VISIT f/u--Mi [place] MA PLAN OF CARE Activity Details Follow Up 4 Weeks Reason: VITAL SIGNS Height 70 in 2017 Weight 263.4 lbs 2017 Heart Rate 96 bpm 2017 Respiratory Rate 22 2017 BMI 37.79 kg/m2 2017 Blood pressure systolic 138 mmHg 2017 Blood pressure diastolic 86 mmHg 2017 MEDICATIONS Medication Instructions Dosage Frequency Start Date End Date Duration Status Abilify 15 MG Orally Once a day 1 tablet 24h Jun, 30 days Active Ambien CR 6.25 MG Orally Once a day 1 tablet at bedtime as needed 24h Feb, 15 days Active Trulicity 0.75 MG/0.5ML Subcutaneous once weekly 0.5 ml Jun, 90 days Active Multivitamin Adult - Active Melatonin 5 MG Orally Once a day 1 capsule at bedtime as needed with food 24h Feb, 30 day(s) Active Ventolin HFA 90 mcg/actuation Inhalation every 4 hrs 2 puffs as needed 4h Dec, Active Neurontin 300 MG Orally Three times a day-repository 1 capsule Dec, Active Cymbalta 60 mg Orally Once a day 2 capsule 24h Feb, Active Oxygen Active Advair Diskus 250 mcg-50 mcg Inhalation Twice a day 1 puff 12h Dec, Active Zyrtec Allergy 10 MG Orally Once a day 1 tablet 24h Not-Taking Topamax 100 mg Orally Twice a day 1 tablet 12h 30 Active Spiriva HandiHaler 18 MCG Inhalation Once a day 1 capsule 24h Active Ipratropium-Albuterol 0.5-2.5 (3) MG/3ML Inhalation Four times a day 3 ml as needed for Shortness of breath 6h Active RESULTS No Results PROCEDURES No Known procedures INSTRUCTIONS MEDICATIONS ADMINISTERED No Known Medications MEDICAL (GENERAL) HISTORY Type Description Date Medical History COPD Medical History asthma Medical History heart cath Medical History Social phobia 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 Hospitalization History [facility] for COPD x2 Mar 2017 Hospitalization History Upper GI bleed at [facility] 2017 Hospitalization History [facility]- COPD Exacerbation, diarrhea 05/23/2017 Hospitalization History COPD exacerbation-[facility] 06/13/17
[2017-08-23] MEDS: RT-ALBUTEROL/IPRATROPIUM 3 ML (DUONEB) VIAL ONE (20:48)
--- OUTSIDE RECORDS SUMMARY | 2017-08-23 20:49 | XMS REPORT ---
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 Active Problem Thrush B37.0 Active 83959611 Problem TMJ (sprain of temporomandibular joint) S03.4XXA Active 98107411 Problem Tobacco abuse Z72.0 Active 76364152 Problem Non morbid obesity due to excess calories E66.09 Active 043356937 Problem Migraine G43.909 Active 02850652 Problem History of MRSA infection Z86.14 Active 510176016 Problem Knee pain, left M25.562 Active 17530398 Problem Obesity, unspecified obesity severity, unspecified obesity type E66.9 Active 274680741 Problem Migraine without aura and without status migrainosus, not intractable G43.009 Active 243630580 Problem Other emphysema J43.8 Active 73234967 Problem Chronic obstructive pulmonary disease with acute exacerbation J44.1 Active 477246524 Problem Intractable cyclical vomiting with nausea G43.A1 Active 34309800 Problem Chronic constipation K59.09 Active 278289114 Problem Acute bronchitis with COPD J44.0 Active [id number] Problem Encounter for tobacco use cessation counseling Z71.6 Active 616986831 Problem Methamphetamine use disorder, moderate, 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 Active 90445223 Problem Chronic bronchitis, unspecified chronic bronchitis type J42 Active 66021594 Problem Viral illness B34.9 Active 74384039 Problem Diabetes E11.9 Active 984405240 Problem Memory loss R41.3 Active 67318986 Problem Left knee pain M25.562 Active 65148416 Problem Dry mouth R68.2 Active 08285128 Problem Yeast vaginitis B37.3 Active 67373361 Problem Generalized anxiety disorder F41.1 Active 47090370 Problem Bipolar disorder with depression F31.30 Active 15139707 Problem Bipolar disorder, unspecified F31.9 Active 39500674 Problem Bipolar disorder, current episode depressed, severe, without psychotic features F31.4 Active 22970204 ALLERGIES No Information ENCOUNTERS Encounter Location Date Diagnosis [facility] [address] [address] Aug, [facility] [address] [address]- [address] Aug, [facility] [address] 05757- 6040 Aug, [facility] [address] 21611- 8047 July, [facility] [address] 55580- 8076 July, [facility] [address] [address]234- 6366 July, Diabetes E11.9 and Chronic obstructive pulmonary disease with acute exacerbation J44.1 [facility] [id number] [place] [address] 99200- 5935 Jun, Chronic obstructive pulmonary disease with acute exacerbation J44.1 ; Diabetes E11.9 and Tobacco abuse Z72.0 [facility] [id number] [place] [address] 32835- 4184 Jun, [facility] [address] 05461- 5945 Jun, [facility] [id number] [place] [address] 74486- 5242 May, [facility] [address] 0[address]99- 2360 May, [facility] [id number] [place] [address] 14865 -0739 17 May, 2017 [facility] [id number] [place] [address] 51772- 7909 16 May, 2017 [facility] [id number] [place] [address] 17677- 1318 15 May, 2017 [facility] [address] 8[address]- 3435 14 May, 2017 Diarrhea, unspecified type R19.7 and Intractable cyclical vomiting with nausea G43.A1 [facility] [address] 59334- 4601 12 May, 2017 [facility] [id number] [place] [address] 79181- 6045 05 May, 2017 [facility] [id number] [place] [address] 69305- 8299 28 Apr, 2017 COPD exacerbation J44.1 ; Esophageal candidiasis B37.81 ; Other acute gastritis with hemorrhage K29.01 and Acute posthemorrhagic anemia D62 [facility] [id number] [place] [address] 07428- 0245 Apr, Viral illness B34.9 and COPD exacerbation J44.1 [facility] [id number] [place] [address] 53804 -2248 Apr, Shortness of breath R06.02 and Pneumonia of both lower lobes due to infectious organism J18.9 [facility] [id number] [place] [address] 54394 -7654 Mar, COPD with acute exacerbation J44.1 [facility] [id number] [place] [address] 60234- 6615 Mar, Chronic obstructive pulmonary disease with acute exacerbation J44.1 and Diabetes E11.9 [facility] [id number] [place] [address] 59609- 1416 Mar, [facility] [address] [address] 1027 Mar, [facility] [id number] [place] [address] 39574 -4588 Mar, COPD exacerbation J44.1 [facility] [id number] [place] [address] 42632- 1242 Mar, [facility] [id number] [place] [address] 63673- 8339 Mar, Migraine G43.909 ; Hypokalemia E87.6 and Type 2 diabetes mellitus without complications E11.9 [facility] [id number] [place] [address] 56202- 8801 Feb, [facility] [id number] [place] [address] 95193- 3104 Feb, [facility] [id number] [place] [address] 72357- 9611 Feb, Methamphetamine use disorder, moderate, 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 ; Major depressive disorder, recurrent, moderate F33.1 ; Anxiety disorder, unspecified F41.9 and Tobacco abuse Z72.0 [facility] [address] [place] [address] 30210- 1815 30 Jan, 2017 Major depressive disorder, recurrent, moderate F33.1 [facility] [id number] [place] [address] 96972- 3721 16 Jan, 2017 [facility] [address] [place] [address] 55075- 4551 14 Jan, 2017 [facility] [id number] [place] [address] 70408- 2946 13 Jan, 2017 Major depressive disorder, recurrent, moderate F33.1 [facility] [address] [place] [address] 23179- 0821 Jan, Major depressive disorder, recurrent, moderate F33.1 ; Anxiety disorder, unspecified F41.9 ; Methamphetamine use disorder, moderate, 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 and Tobacco abuse Z72.0 [facility] [address] 85550- 5561 Jan, [facility] [address] 91651- 8390 Jan, Chronic obstructive pulmonary disease with acute exacerbation J44.1 and Diabetes E11.9 [facility] [address] 73011- 9907 Jan, [facility] [address] 65227- 1152 Jan, [facility] [address] 87987- 0509 Dec, Acute respiratory failure with hypoxia J96.01 ; Chronic bronchitis, unspecified chronic bronchitis type J42 and Tobacco use Z72.0 [facility] [address] 01549- 8340 Dec, [facility] [address] [id number] Nov, Dental caries K02.9 and Dental examination Z01.20 [facility] [address] 49022- 2836 Nov, Major depressive disorder, recurrent, moderate F33.1 ; Anxiety disorder, unspecified F41.9 and 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 [facility] [id number] [place] [address] [id number] Oct, Dental examination Z01.20 [facility] [address] 83497- 4734 Oct, [facility] [address] 76462- 5558 Oct, Diabetes E11.9 and Thrush B37.0 [facility] [address] 62623- 8747 Oct, [facility] [address], [place] [address]- 9708 Oct, [facility] [address], [place] [address]- 4215 Oct, [facility] [address], [place] [address]- 2311 Sep, Major depressive disorder, recurrent, moderate F33.1 ; Anxiety disorder, unspecified F41.9 and Bipolar disorder, unspecified F31.9 [facility] [address], [place] [address]- 5124 Sep, Acute exacerbation of chronic obstructive pulmonary disease (COPD) J44.1 and Migraine G43.909 [facility] [address], [place] [address]- 6229 Sep, [facility] [id number] [place] [address] [id number] Sep, [facility] [address], [place] [address]- 6053 Sep, Acute exacerbation of chronic obstructive pulmonary disease (COPD) J44.1 [facility] [address], [place] [address] Sep, Acute exacerbation of chronic obstructive pulmonary disease (COPD) J44.1 [facility] [address], [place] [address]- 8676 Aug, [facility] [address], [place] [address]- 9015 Aug, Major depressive disorder, recurrent, moderate F33.1 ; Anxiety disorder, unspecified F41.9 and 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 [facility] [id number] [address]- 1074 Aug, Wheezing R06.2 ; Non morbid obesity due to excess calories E66.09 ; Migraine without aura and without status migrainosus, not intractable G43.009 and Tobacco abuse Z72.0 [facility] [address] [place] [address] [id number] 14 Aug, 2016 Encounter for dental examination Z01.20 [facility] [id number] [place] [address] 00207- 8105 02 Aug, 2016 Major depressive disorder, recurrent, moderate F33.1 ; Anxiety disorder, unspecified F41.9 and 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 [facility] [id number] [place] [address] 89715- 9655 July, [facility] [id number] [place] [address] 14149- 9743 July, [facility] [id number] [place] [address] 64444- 0979 July, [facility] [id number] [place] [address] 95045- 7167 July, Diabetes E11.9 [facility] [id number] [place] [address] 20851- 1803 Jun, Major depressive disorder, recurrent, moderate F33.1 [facility] [id number] [place] [address] 28054- 7081 Jun, Major depressive disorder, recurrent, moderate F33.1 ; 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 ; Generalized anxiety disorder F41.1 and Bipolar disorder, unspecified F31.9 [facility] [id number] [place] [address] 34676- 4900 Jun, Diabetes E11.9 ; Migraine G43.909 ; Thrush B37.0 and Wheezing R06.2 [facility] [address] [place] [address] [id number] Jun, Dental examination Z01.20 [facility] [id number] [place] [address] 89429- 6582 Jun, [facility] [address] [place] [address] 17367- 8283 Jun, Major depressive disorder, recurrent, moderate F33.1 ; Anxiety disorder, unspecified F41.9 and 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 [facility] [id number] [place] [address] 98218- 0873 Jun, [facility] [address] 60955- 7658 Jun, Wheezing R06.2 [facility] [address] [id number] Jun, Dental caries K02.9 [facility] [id number] [place] [address] 99459- 8527 Jun, Major depressive disorder, recurrent, moderate F33.1 ; Anxiety disorder, unspecified F41.9 and 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 [facility] [id number] [place] [address] 91704- 9068 Jun, RLQ abdominal pain R10.31 ; Diabetes E11.9 ; Obesity, unspecified obesity severity, unspecified obesity type E66.9 ; Wheezing R06.2 and Abnormal urinalysis R82.90 [facility] [id number] [place] [address] 60402- 4384 May, [facility] [id number] [place] [address] 41357- 1611 May, Well woman exam Z01.419 ; Breast cancer screening Z12.39 ; Cervical cancer screening Z12.4 ; Urinary frequency R35.0 ; Edema, unspecified type R60.9 and Chronic constipation K59.09 [facility] [id number] [place] [address] 21885- 9597 May, Major depressive disorder, recurrent, moderate F33.1 ; Anxiety disorder, unspecified F41.9 and 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 [facility] [place] [id number] [id number] 07 May, 2016 Dental examination Z01.20 [facility] [address], [place] [address]- 1060 May, [facility] [address], [place] [address]- 5216 May, [facility] [address] [place] [address] 79597- 0256 May, Chronic constipation K59.09 [facility] [address] [place] [address] 38316- 4526 Apr, [facility] [address] [place] [address] 25834- 8306 Apr, Major depressive disorder, recurrent, moderate F33.1 ; Anxiety disorder, unspecified F41.9 and 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 [facility] [address], [place] [address]- 2331 Apr, [facility] [address] [place] [address] 88825- 5500 Mar, Major depressive disorder, recurrent, moderate F33.1 [facility] [address], [place] [address]- 0084 Mar, Major depressive disorder, recurrent, moderate F33.1 ; Generalized anxiety disorder F41.1 and Bipolar I disorder, most recent episode depressed with anxious distress F31.30 [facility] [address], [place] [address]- 2147 Mar, Diabetes E11.9 ; Non morbid obesity due to excess calories E66.09 ; Breast cancer screening Z12.39 and Encounter for immunization Z23 [facility] [address], [place] [address]- 4569 Mar, Major depressive disorder, recurrent, moderate F33.1 ; Anxiety disorder, unspecified F41.9 and 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 [facility] [address] [place] [address] 55715- 0104 Mar, [facility] [id number] [place] [address] Feb, Major depressive disorder, recurrent, moderate F33.1 ; Anxiety disorder, unspecified F41.9 and 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 [facility] [id number] [place] [address] 12048- 1682 Feb, [facility] [id number] [place] [address] 097484- 2958 Feb, [facility] [id number] [place] [address] 18221- 7103 Jan, Major depressive disorder, recurrent, moderate F33.1 ; Generalized anxiety disorder F41.1 and Bipolar disorder, current episode depressed, severe, without psychotic features F31.4 [facility] [address] [place] [address] 12028- 4933 18 Jan, 2016 Major depressive disorder, recurrent, moderate F33.1 ; Anxiety disorder, unspecified F41.9 and 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 [facility] [id number] [place] [address] 55435- 8950 16 Jan, 2016 Bronchitis J40 [facility] [id number] [place] [address] 88439- 4482 Jan, [facility] [id number] [place] [address] 07049- 9140 Jan, [facility] [id number] [place] [address] 47457- 0885 Jan, Elbow injury, right, initial encounter S59.901A ; Multiple contusions T14.8 and Cervical strain, acute, initial encounter S16.1XXA [facility] [id number] [place] [address] 27698- 1802 Dec, Major depressive disorder, recurrent, moderate F33.1 ; Generalized anxiety disorder F41.1 and Bipolar disorder with depression F31.30 [facility] [address], [place] [address]- 6217 Dec, [facility] [address], [place] [address]- 2547 Dec, [facility] [id number] [place] [address] 25447- 0635 Dec, [facility] [address] [place] [address] 02966- 0683 Dec, [facility] [address] [place] [address] 06565- 1280 Dec, Yeast infection B37.9 [facility] [address] [place] [address] 09048- 2595 Dec, Pneumonia of both lungs due to methicillin resistant Staphylococcus aureus (MRSA), unspecified part of lung J15.212 and Benzodiazepine overdose, accidental or unintentional, subsequent encounter T42.4X1D [facility] [address] [place] [address] 54317- 7056 Dec, [facility] [address], [place] [address]- 1249 Dec, [facility] [address] [place] [address] 04834- 9890 Dec, Knee pain, left M25.562 and Edema, unspecified type R60.9 [facility] [address], [place] [address]- 4790 Dec, [facility] [address] [place] [address] 11717- 5869 Dec, Anxiety disorder, unspecified F41.9 and Bipolar disorder, unspecified F31.9 [facility] [address] [place] [address] 77456- 1865 Nov, Major depressive disorder, recurrent, moderate F33.1 ; Anxiety disorder, unspecified F41.9 and 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 [facility] [address] [place] [address] 98159- 9721 Nov, [facility] [id number] [place] [address] 26514- 4791 Nov, Migraine without aura and without status migrainosus, not intractable G43.009 [facility] [id number] [place] [address] 37915- 1729 Nov, Migraine G43.909 [facility] [id number] [place] [address] 48760- 3466 Nov, [facility] [id number] [place] [address] 92816- 8611 Nov, Major depressive disorder, recurrent, moderate F33.1 ; Anxiety disorder, unspecified F41.9 and 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 [facility] [id number] [place] [address] 88860- 9854 Oct, Chronic constipation K59.09 and Obesity, unspecified obesity severity, unspecified obesity type E66.9 [facility] [id number] [place] [address] 69784- 0163 Oct, Obesity, unspecified obesity severity, unspecified obesity type E66.9 ; Chronic constipation K59.09 and Anxiety disorder, unspecified F41.9 [facility] [address] [place] [address] 29503- 7301 Oct, [facility] [id number] [place] [address] 31373- 8740 Sep, Diabetes E11.9 ; Edema, unspecified type R60.9 ; Varicose vein of leg I83.90 and Obesity, unspecified obesity severity, unspecified obesity type E66.9 [facility] [id number] [place] [address] 18328- 0219 Sep, Edema, unspecified type R60.9 ; Diabetes E11.9 and Knee pain , left M25.562 [facility] [id number] [place] [address] 37652- 8177 Sep, [facility] [id number] [place] [address] 26381- 4545 Sep, [facility] [id number] [place] [address] 61807- 6796 Sep, Major depressive disorder, recurrent, moderate F33.1 ; Generalized anxiety disorder F41.1 and Bipolar disorder, unspecified F31.9 [facility] [id number] [place] [address] 92984- 5357 Aug, Chondromalacia of left knee M94.262 [facility] [id number] [place] [address] 74844- 2774 Aug, Major depressive disorder, recurrent, moderate F33.1 ; Anxiety disorder, unspecified F41.9 and 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 [facility] [id number] [place] [address] 50858- 5048 Aug, [facility] [id number] [place] [address] 07237- 4679 Aug, Osteoarthritis of left knee M17.9 [facility] [id number] [place] [address] 14043- 7800 Aug, [facility] [address] [place] [address] 74599- 4282 July, Major depressive disorder, recurrent, moderate F33.1 ; Anxiety disorder, unspecified F41.9 and 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 [facility] [address] [place] [address] 00410- 1899 July, [facility] [id number] [place] [address] 54348- 5141 July, Chronic constipation K59.09 [facility] [id number] [place] [address] 57049- 2986 Jun, [facility] [id number] [place] [address] 87533- 4888 Jun, [facility] [id number] [place] [address] 33384- 0434 14 Jun, 2015 Osteoarthritis of left knee M17.9 [facility] [id number] [place] [address] [phone] Jun, [facility] [address] [phone]- [phone] Jun, Generalized anxiety disorder F41.1 ; Bipolar disorder, unspecified F31.9 and Major depressive disorder, recurrent, moderate F33.1 [facility] [id number] [place] [address] [id number]- [phone] Jun, Migraine G43.909 [facility] [id number] [place] [address] [id number]- [phone] 07 Jun, 2015 Left knee pain M25.562 ; Chronic constipation K59.09 ; Dry mouth R68.2 ; Yeast vaginitis B37.3 and Memory loss R41.3 [facility] [id number] [place] [address] [id number]- [phone] Jun, [facility] [address] [id number] [place] [address] 40869- 5286 May, [facility] [id number] [place] [address] 41697- 4259 May, [facility] [id number] [place] [address] 22334- 6069 May, [facility] [id number] [place] [address] 72391- 2403 May, [facility] [id number] [place] [address] 88130- 2093 May, Acute bronchitis with COPD J44.0 ; Knee pain, left M25.562 and Encounter for tobacco use cessation counseling Z71.6 [facility] [facility] [id number] [place] [address] 78029- 9831 May, [place] [address] 83737- 8905 Apr, Diabetes E11.9 ; TMJ (sprain of temporomandibular joint) S03.4XXA ; Tobacco abuse Z72.0 ; Migraine G43.909 and Anxiety F41.9 [place] [address] 89972- 4507 Apr, Generalized anxiety disorder F41.1 and Bipolar disorder, unspecified F31.9 [place] [id number] [place] [address] 15947- 4248 Apr, Major depressive disorder, recurrent, moderate F33.1 ; Anxiety disorder, unspecified F41.9 and 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 [place] [id number] [place] [address] 81820- 6259 Apr, [facility] [id number] [place] [address] 68835- 9858 Mar, [place] [id number] [place] [address] 40797- 8521 Feb, [place] [id number] [place] [address] 38205- 4114 14 Feb, 2015 Major depressive disorder, recurrent, moderate F33.1 ; Anxiety disorder, unspecified F41.9 and 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 [place] [id number] [place] [address] 87059- 8757 Feb, [place] [id number] [place] [address] 15462- 6376 Feb, Generalized anxiety disorder F41.1 and Bipolar disorder, unspecified F31.9 [facility] [id number] [place] [address] 68337- 5671 Jan, [facility] [id number] [place] [address] 07999- 4606 Jan, [facility] [id number] [place] [address] 93364- 2031 Jan, Bipolar disorder, unspecified F31.9 and Generalized anxiety disorder F41.1 [facility] [id number] [place] [address] 99347- 5629 Dec, [place] [address] 23239- 6453 Dec, Bipolar disorder, unspecified F31.9 and Generalized anxiety disorder F41.1 [facility] [id number] [place] [address] 63065- 3260 Dec, Generalized anxiety disorder F41.1 and Major depressive disorder, recurrent, moderate F33.1 [place] [id number] [place] [address] 78494- 9732 Oct, Headache 784.0 ; Cough 786.2 ; Vomiting and diarrhea 787.03 and Dysuria 788.1 [place] [id number] [place] [address] 26421- 7774 Aug, [facility] [id number] [place] [address] 06884- 1691 Aug, Headache 784.0 and Shortness of breath 786.05 [facility] [id number] [place] [address] 66618- 0055 Aug, [place] [id number] [place] [address] 41504- 9302 Aug, Migraine 346.90 [facility] [id number] [place] [address] 84271- 3984 Jun, [facility] [address] [facility] [id number] [place] [address]- 9658 13 Jun, 2014 [facility] [place] [facility] [address] [id number] [place] [address]- 1504 May, [facility] [place] [facility] [address] [id number] [place] [address]- 8244 May, [facility] [place] [facility] [address] [id number] [place] [address]- 2058 May, [facility] [place] [facility] [address] [id number] [place] [address]- 7451 May, [facility] [place] [facility] [address] [id number] [place] [address]- 2282 May, [facility] [place] [facility] [address] [facility] [id number] [place] [address]- 2136 May, [facility] [place] [facility] [address] [id number] [place] [address]- 1724 Apr, [facility] [place] [facility] [address] [id number] [place] [address]- 4947 Apr, [facility] [place] [facility] [address] [id number] [place] [address]- 4841 Apr, [facility] [place] [facility] [address] [id number] [place] [address]- 2722 Apr, [facility] [place] [facility] [address] [id number] [place] [address]- 1072 Apr, [facility] [place] [facility] [address] [id number] [place] [address]- 7136 Mar, [facility] [place] [facility] [address] [id number] [place] [address]- 9842 Mar, [facility] [place] [facility] [address] [id number] [place] [address]- 3753 Mar, [facility] [place] [facility] [address] [id number] [place] [address]- 3846 Mar, [facility] [place] [facility] [address] [id number] [place] [address]- 9040 Feb, [facility] [place] [facility] [address] [id number] [place] [address]- 7370 Feb, [facility] [place] [facility] [address] [id number] [place] [address]- 6438 Feb, [facility] [place] [facility] [address] [id number] [place] [address]- 2762 Feb, [facility] [place] [facility] [address] [id number] [place] [address]- 5236 Feb, [facility] [place] [facility] [address] [id number] [place] [address]- 4232 Feb, [facility] [place] [facility] [address] [id number] [place] [address]- 3636 Feb, [facility] [place] [facility] [address] [id number] [place] [address]- 0719 Feb, [facility] [place] [facility] [address] [id number] [place] [address]- 4475 Feb, [facility] [place] [facility] [address] [id number] [place] [address]- 6749 Feb, [facility] [place] [facility] [address] [id number] [place] [address]- 4742 Feb, [facility] [place] [facility] [address] [id number], [place] [address]- 9075 Feb, [facility] [place] [facility] [address] [id number] [place] [address]- 7829 Jan, [facility] [place] [facility] [address] [id number] [place] [address]- 4722 Jan, [facility] [place] [facility] [address] [id number] [place] [address]- 2515 Dec, [facility] [place] [facility] [address] [id number] [place] [address]- 7591 Dec, [facility] [place] [facility] [address] [id number] [place] [address]- 6083 Dec, [facility] [place] [facility] [address] [id number] [place] [address]- 0478 Dec, [facility] [place] [facility] [address] [id number] [place] [address]- 7626 Dec, [facility] [place] [facility] [address] [id number] [place] [address]- 7534 Dec, [facility] [place] [facility] [address] [id number] [place] [address]- 9491 Sep, [facility] [place] [facility] [address] [id number] [place] [address]- 2791 Sep, [facility] [place] [facility] [address] [id number] [place] [address]- 6916 Sep, [facility] [place] [facility] [address] [id number] [place] [address]- 9024 Sep, [facility] [place] [facility] [address] [id number] [place] [address]- 8308 Sep, [facility] [place] [facility] [address] [id number] [place] [address]- 7413 Sep, [facility] [place] [facility] [address] [id number] [place] [address]- 7056 Sep, [facility] [place] [facility] [address] [id number] [place] [address]- 2637 Sep, [facility] [place] [facility] [address] [id number] [place] [address]- 7328 Sep, [facility] [place] [facility] [address] [id number] [place] [address]- 4654 Sep, [facility] [place] [facility] [address] [id number] [place] [address]- 3983 Aug, [facility] [place] [facility] [address] [id number] [place] [address]- 5588 Aug, [facility] [place] [facility] [address] [id number] [place] [address]- 5682 Aug, [facility] [place] [facility] [address] [id number] [place] [address]- 4276 Aug, [facility] [place] [facility] [address] [id number] [place] [address]- 3454 Aug, [facility] [place] [facility] [address] [id number] [place] [address]- 5985 Aug, [facility] [place] [facility] [address] [id number] [place] [address]- 2442 Aug, [facility] [place] [facility] [address] [id number] [place] [address]- 3817 Aug, [facility] [place] [facility] [address] [id number] [place] [address]- 8244 Aug, [facility] [place] [facility] [address] [id number] [place] [address]- 6696 Aug, [facility] [place] [facility] [address] [id number] [place] [address]- 4155 Aug, [facility] [place] [facility] [address] [id number] [place] [address]- 7765 Aug, [facility] [place] [facility] [address] [id number], [place] [address]- 9675 Aug, [facility] [place] [facility] [address] [id number] [place] [address]- 3605 July, [facility] [place] [facility] [address] [id number] [place] [address]- 9016 July, [facility] [place] [facility] [address] [id number] [place] [address]- 6683 July, [facility] [place] [facility] [address] [id number] [place] [address]- 4673 July, [facility] [place] [facility] [address] [id number] [place] [address]- 7016 July, [facility] [place] [facility] [address] [id number] [place] [address]- 0087 July, [facility] [place] [facility] [address] [id number] [place] [address]- 5601 July, [facility] [place] [facility] [address] [id number] [place] [address]- 2299 Jun, [facility] [place] [facility] [address] [id number] [place] [address]- 9335 Jun, [facility] [place] [facility] [address] [id number] [place] [address]- 4188 Jun, [facility] [place] [facility] [address] [id number] [place] [address]- 5825 Jun, [facility] [place] [facility] [address] [id number] [place] [address]- 0550 Jun, [facility] [place] [facility] [address] [id number] [place] [address]- 2241 Jun, [facility] [place] [facility] [address] [id number] [place] [address]- 1400 Jun, [facility] [place] [facility] [address] [id number] [place] [address]- 7547 17 May, 2013 [facility] [place] [facility] [address] [id number] [place] [address]- 3601 17 May, 2013 [facility] [place] [facility] [address] [id number] [place] [address]- 4440 14 May, 2013 [facility] [place] [facility] [address] [id number] [place] [address]- 4889 14 May, 2013 [facility] [place] [facility] [address] [id number] [place] [address]- 8684 13 May, 2013 [facility] [place] [facility] [address] [id number] [place] [address]- 4730 13 May, 2013 [facility] [place] [facility] [address] [id number] [place] [address]- 3777 10 May, 2013 [facility] [place] [facility] [address] [id number] [place] [address]- 6555 10 May, 2013 [facility] [place] [facility] [address] [id number] [place] [address]- 3197 07 May, 2013 [facility] [place] [facility] [address] [id number] [place] [address]- 9640 Apr, [facility] [place] [facility] [address] [id number] [place] [address]- 8635 Apr, [facility] [place] [facility] [address] [id number] [place] [address]- 2140 18 Apr, 2013 [facility] [place] [facility] [address] [id number] [place] [address]- 1198 15 Apr, 2013 [facility] [place] [facility] [address] [id number] [place] [address]- 1168 15 Apr, 2013 [facility] [place] [facility] [address] [facility] [id number] [place] [address]- 4104 Apr, [facility] [place] [facility] [address] [id number] [place] [address]- 5843 Apr, [facility] [place] [facility] [address] [id number] [place] [address]- 7582 05 Apr, 2013 [facility] [place] [facility] [address] [id number] [place] [address]- 3905 Apr, [facility] [place] [facility] [address] [id number] [place] [address]- 5289 05 Apr, 2013 [facility] [place] [facility] [address] [id number] [place] [address]- 4238 Mar, [facility] [place] [facility] [address] [id number], [place] [address]- 5671 Mar, [facility] [address] [id number] [place] [address]- 4700 Mar, [facility] [place] [facility] [address] [id number] [place] [address]- 1016 Mar, [facility] [place] [facility] [address] [id number] [place] [address]- 3920 Mar, [facility] [place] [facility] [address] [id number] [place] [address]- 3991 Mar, [facility] [place] [facility] [address] [id number] [place] [address]- 6537 Mar, [facility] [place] [facility] [address] [id number] [place] [address]- 3322 Mar, [facility] [address] [id number] [place] [address]- 7329 Feb, [facility] [place] [facility] [address] [id number] [place] [address]- 6179 Feb, [facility] [place] [facility] [address] [id number] [place] [address]- 9139 Jan, [facility] [place] [facility] [address] [id number] [place] [address]- 8694 18 Jan, 2013 [facility] [place] [facility] [address] [id number] [place] [address]- 0199 15 Jan, 2013 [facility] [place] [facility] [address] [id number], [place] [address]- 9679 15 Jan, 2013 [facility] [place] [facility] [address] [id number], [place] [address]- 0812 12 Jan, 2013 [facility] [place] [facility] [address] [id number], [place] [address]- 1533 Jan, [facility] [place] [facility] [address] [id number], [place] [address]- 9660 05 Jan, 2013 [facility] [place] [facility] [address] [id number] [place] [address]- 9197 05 Jan, 2013 [facility] [place] [facility] [address] [id number] [place] [address]- 7976 Dec, [facility] [place] [facility] [address] [id number] [place] [address]- 7986 Dec, [facility] [place] [facility] [address] [id number] [place] [address]- 0536 10 Dec, 2012 [facility] [place] [facility] [address] [id number] [place] [address]- 0691 20 Nov, 2012 [facility] [place] [facility] [address] [id number] [place] [address]- 4436 13 Nov, 2012 [facility] [place] [facility] [address] [id number] [place] [address]- 9102 12 Nov, 2012 [facility] [place] [facility] [address] [id number] [place] [address]- 3960 09 Nov, 2012 [facility] [place] [facility] [address] [id number] [place] [address]- 7301 Nov, [facility] [place] [facility] [address] [id number] [place] [address]- 4568 Nov, [facility] [place] [facility] [address] [id number] [place] [address]- 8926 Oct, [facility] [place] [facility] [address] [id number] [place] [address]- 6891 Oct, [facility] [place] [facility] [address] [id number] [place] [address] 2542 Sep, [facility] [place] [facility] [address] [id number] [place] [address] 2544 Sep, [facility] [place] [facility] [address] [id number] [place] [address]- 2542 Sep, [facility] [place] [facility] [address] [id number] [place] [address]- 3934 Sep, [facility] [address] [id number] [place] [address]- 6918 Sep, [facility] [place] [facility] [address] [id number] [place] [address]- 6446 Sep, [facility] [place] [facility] [address] [id number] [place] [address]- 5007 Sep, [facility] [place] [facility] [address] [id number] [place] [address]- 5716 Aug, [facility] [address] [id number] [place] [address]- 5772 Aug, [facility] [place] [facility] [address] [id number] [place] [address]- 4423 Aug, [facility] [place] [facility] [address] [id number] [place] [address]- 4515 Aug, [facility] [place] [facility] [address] [id number] [place] [address]- 9212 Aug, [facility] [place] [facility] [address] [id number] [place] [address]- 5701 Aug, [facility] [place] [facility] [address] [id number] [place] [address]- 5139 July, [facility] [place] [facility] [address] [id number] [place] [address]- 3749 July, [facility] [place] [facility] [address] [id number], [place] [address]- 4985 July, [facility] [place] [facility] [address] [id number] [place] [address]- 5433 July, [facility] [place] [facility] [address] [id number] [place] [address]- 1868 July, [facility] [place] [facility] [address] [id number] [place] [address]- 9873 July, [facility] [place] [facility] [address] [id number] [place] [address]- 2601 Jun, [facility] [address] [id number] [place] [address]- 2033 Jun, [facility] [place] [facility] [address] [id number] [place] [address]- 8936 15 Jun, 2012 [facility] [address] [id number] [place] [address]- 7659 Jun, [facility] [place] [facility] [address] [id number] [place] [address]- 0611 Jun, [facility] [address] [id number] [place] [address]- 1508 Jun, [facility] [place] [facility] [address] [facility] [id number] [place] [address]- 6945 Jun, [facility] [address] [id number] [place] [address]- 8798 May, [facility] [address] [id number] [place] [address]- 2106 May, [facility] [place] [facility] [address] [id number] [place] [address]- 5196 26 Apr, 2012 [facility] [address] [facility] [id number] [place] [address]- 8260 Apr, [facility] [place] [facility] [address] [id number] [place] [address] 2543 18 Apr, 2012 [facility] [place] [facility] [address] [id number] [place] [address]- 2545 Apr, [facility] [place] [facility] [address] [id number] [place] 2599 12 Apr, 2012 [facility] [place] [facility] [address] [facility] [id number] [place] [address]- 2546 08 Apr, 2012 [facility] [place] [facility] [address] [facility] [id number] [place] [address]- 8051 07 Apr, 2012 [facility] [address] [id number] [place] [address]- 9530 07 Apr, 2012 [facility] [place] [facility] [address] [id number] [place] [address]- 8481 06 Apr, 2012 [facility] [place] [facility] [address] [id number] [place] [address]- 3015 Apr, [facility] [place] [facility] [address] [id number] [place] [address]- 8392 Apr, [facility] [place] [facility] [address] [id number] [place] [address]- 2970 Mar, [facility] [place] [facility] [address] [id number] [place] [address]- 4206 Mar, [facility] [place] [facility] [address] [id number] [place] [address]- 3056 Mar, [facility] [place] [facility] [address] [id number] [place] [address]- 1302 Mar, [facility] [place] [facility] [address] [id number] [place] [address]- 6775 Mar, [facility] [place] [facility] [address] [id number] [place] [address]- 3476 Mar, [facility] [place] [facility] [address] [id number] [place] [address]- 3218 Mar, [facility] [place] [facility] [address] [id number] [place] [address]- 7912 Mar, [facility] [place] [facility] [address] [id number] [place] [address] Mar, [facility] [place] [facility] [address] [id number] [place] [address] Mar, [facility] [place] [facility] [address] [id number] [place] [address] Mar, [facility] [place] [facility] [address] [id number] [place] [address] Mar, [facility] [address] [id number] [place] [address] Mar, [facility] [address] [id number] [place] [address] Feb, [facility] [address] [id number] [place] [address] Feb, [facility] [address] [id number] [place] [address] 7967 Feb, [facility] [address] [id number] [place] [address] Feb, [facility] [address] [id number] [place] [address] 15[address] Feb, [facility] [address] [id number] [place] [address] Feb, [facility] [address] [id number] [place] [address]- [address]157 Feb, [facility] [address] [id number] [place] [address] 67[address] Feb, [facility] [address] [id number] [place] [address] 39[address] Feb, [facility] [address] [id number] [place] [address] 2542 Feb, [facility] [address] [id number] [place] [address]- [address] 06 Feb, 2012 [facility] [place] [facility] [address] [id number] [place] [address] 05 Feb, 2012 [facility] [address] [id number] [place] [address]- [address] 05 Feb, 2012 [facility] [address] [id number] [place] [address] Feb, [facility] [place] [facility] [address] [id number] [place] [address]- 1651 Feb, [facility] [place] [facility] [address] [id number] [place] [address] Jan, [facility] [place] [facility] [address] [id number] [place] [address]- 9807 Jan, [facility] [place] [facility] [address] [id number] [place] [address] 33[address] Jan, [facility] [place] [facility] [address] [id number] [place] [address] Jan, [facility] [place] [facility] [address] [id number] [place] [address] Dec, [facility] [place] [facility] [address] [id number] [place] [address]- [address]81 Dec, [facility] [place] [facility] [address] [id number], [place] [address] Dec, [facility] [place] [facility] [address] [id number], [place] [address] Dec, [facility] [place] [facility] [address] [facility] [id number], [place] [address] Dec, [facility] [place] [facility] [address] [id number], [place] [address] Dec, [facility] [place] [facility] [address] [id number], [place] [address] Dec, [facility] [place] [facility] [address] [id number], [place] [address] Dec, [facility] [place] [facility] [address] [id number], [place] [address] Dec, [facility] [place] [facility] [address] [facility] [id number], [place] [address] Dec, [facility] [place] [facility] [address] [id number], [place] [address] 03 Oct2011 [facility] [place] [facility] [address] [id number] [place] [address] 2546 25 Sep, 2011 [facility] [place] [facility] [address] [id number] [place] [address] 2546 24 Sep, 2011 [facility] [place] [facility] [address] [id number] [place] [address] 20 Sep, 2011 [facility] [place] [facility] [address] [id number] [place] [address] 2546 19 Sep, 2011 [facility] [place] [facility] [address] [id number] [place] [address], [place] [address]- [address] 17 Sep, 2011 [facility] [place] [facility] [address] [id number] [place] [address]- 97[address] 16 Sep, 2011 [facility] [address] [id number] [place] [address]- 119[address] 14 Sep, 2011 [facility] [place] [facility] [address] [id number] [place] [address]- [address]13 13 Sep, 2011 [facility] [place] [facility] [address] [id number] [place] [address]- [address]398 12 Sep, 2011 [facility] [place] [facility] [address] [facility] [id number] [place] [address]- [address] 07 Sep, 2011 [facility] [place] [facility] [address] [id number] [place] [address] 2544 06 Sep, 2011 [facility] [place] [facility] [address] [id number], [place] [address]43 06 Sep, 2011 [facility] [place] [facility] [address] [id number] [place] [address] 6[address] 05 Sep, 2011 [facility] [place] [facility] [address] [facility] [id number] [place] [address]- 2312 29 Oct, 2011 [facility] [place] [facility] [address] [id number] [place] [address]- 1477 29 Oct, 2011 [facility] [place] [facility] [address] [id number] [place] [address]- [address] Oct, [facility] [place] [facility] [address] [id number] [place] [address]- 9466 Oct, [facility] [place] [facility] [address] [id number] [place] [address] 2546 Oct, [facility] [place] [facility] [address] [id number] [place] [address] 2546 Oct, [facility] [place] [facility] [address] [id number] [place] [address] 2540 Oct, [facility] [place] [facility] [address] [id number] [place] [address] 9696 Oct, [facility] [place] [facility] [address] [id number] [place] [address]- 0192 Oct, [facility] [place] [facility] [address] [id number] [place] [address]- 3576 Oct, [facility] [place] [facility] [address] [id number] [place] [address] Oct, [facility] [place] [facility] [address] [id number] [place] [address] Sep, [facility] [place] [facility] [address] [id number] [place] [address] Sep, [facility] [place] [facility] [address] [id number] [place] [address] Sep, [facility] [place] [facility] [address] [id number] [place] [address] Sep, [facility] [place] [facility] [address] [id number] [place] [address] Sep, [facility] [place] [facility] [address] [id number] [place] [address] Sep, [facility] [place] [facility] [address] [id number] [place] [address] Aug, [facility] [address] [id number] [place] [address] July, [facility] [place] [facility] [address] [id number] [place] [address] July, [facility] [place] [facility] [address] [id number] [place] [address] Jun, [facility] [place] [facility] [address] [id number] [place] [address] Jun, [facility] [place] [facility] [address] [id number] [place] [address] Jun, [facility] [place] [facility] [address] [id number] [place] [address] Jun, [facility] [place] [facility] [address] [id number] [place] [address] Jun, [facility] [place] [facility] [address] [id number] [place] [address] Jun, [facility] [place] [facility] [address] [id number] [place] [address] Jun, [facility] [place] [facility] [address] [id number] [place] [address] Jun, [facility] [place] [facility] [address] [id number] [place] [address] Jun, [facility] [place] [facility] [address] [id number] [place] [address] Jun, [facility] [place] [facility] [address] [id number] [place] [address] Jun, [facility] [place] [facility] [address] [id number] [place] [address] May, [facility] [place] [facility] [address] [id number] [place] [address] May, [facility] [place] [facility] [address] [id number] [place] [address] 14 May, 2011 [facility] [place] [facility] [address] [id number] [place] [address] May, [facility] [place] [facility] [address] [id number] [place] [address] Apr, [facility] [place] [facility] [address] [id number] [place] [address] Apr, [facility] [place] [facility] [address] [id number] [place] [address] Apr, [facility] [place] [facility] [address] [id number] [place] [address] Apr, [facility] [place] [facility] [address] [id number] [place] [address] Apr, [facility] [place] [facility] [address] [id number] [place] [address] Apr, [facility] [place] [facility] [address] [id number] [place] [address] Apr, [facility] [place] [facility] [address] [id number] [place] [address] Apr, [facility] [place] [facility] [address] [id number] [place] [address] Mar, [facility] [place] [facility] [address] [id number] [place] [address] Mar, [facility] [place] [facility] [address] [id number] [place] [address] 25[address] Mar, [facility] [place] [facility] [address] [id number] [place] [address] 18 Mar, 2011 [facility] [place] [facility] [address] [id number] [place] [address] 17 Mar, 2011 [facility] [place] [facility] [address] [id number] [place] [address] Mar, [facility] [address] [id number] [place] [address] Mar, [facility] [place] [facility] [address] [id number] [place] [address] Mar, [facility] [place] [facility] [address] [id number] [place] [address] Mar, [facility] [place] [facility] [address] [id number] [place] [address] Mar, [facility] [address] [id number] [place] [address] Mar, [facility] [place] [facility] [address] [id number] [place] [address] Mar, [facility] [place] [facility] [address] [id number] [place] [address] Mar, [facility] [place] [facility] [address] [id number] [place] [address] Mar, [facility] [place] [facility] [address] [id number] [place] [address] Mar, [facility] [place] [facility] [address] [id number] [place] [address] Mar, [facility] [place] [facility] [address] [id number], [place] [address] Feb, [facility] [place] [facility] [address] [id number], [place] [address] Feb, [facility] [place] [facility] [address] [id number] [place] [address] Feb, [facility] [place] [facility] [address] [id number] [place] [address] 29 Jan, 2011 [facility] [place] [facility] [address] [id number] [place] [address] Jan, [facility] [place] [facility] [address] [id number], [place] [address] Jan, [facility] [address] [id number], [place] [address] Dec, [facility] [address] [id number], [place] [address] Dec, [facility] [address], [place] [address] Nov, [facility] [address], [place] [address] Oct, [facility] [address], [place] [address] Oct, [facility] [address], [place] [address] Oct, [facility] [address], [place] [address] Sep, [facility] [address] [id number], [place] [address] Apr, [facility] [address], [place] [address] Feb, [facility] [address] [id number], [place] [address] Jan, IMMUNIZATIONS No Known Immunizations SOCIAL HISTORY Never Assessed REASON FOR VISIT [facility] PLAN OF CARE VITAL SIGNS MEDICATIONS Unknown [...] 2/2 Benzos OD, pneumonia MRSA, MAYRA, Hypokalemia-- [facility] 12/20/2015 Hospitalization History COPD exacerbation, Asthma-[facility] 09/21/16 Hospitalization History COPD-[facility] 12/30/2016 Hospitalization History [facility] and [facility] for inpatient-last around 2006 or so. Hospitalization History [facility] for COPD x2 Mar 2017 Hospitalization History Upper GI bleed at apr 2017 Hospitalization History [facility]- COPD Exacerbation, diarrhea 05/23/2017 Hospitalization History COPD exacerbation-[facility] 06/13/17
--- NOTE | 2017-08-23 20:51 | ED Respiratory ---
General Stated Complaint: SOA Source: patient, old records Exam Limitations: no limitations History of Present Illness Date Seen by Provider: Aug 23, 2017 Time Seen by Provider: 20:39 Initial Comments Patient presents to ER by private conveyance with a chief complaint of shortness of breath. She says this started to get worse after about 2-3 days ago and she been using her DuoNeb about every 3 hours [id number] while awake. She is down her smoking to about a quarter pack per day. She has a history of COPD and has been having a nonproductive cough is Thursday. She was 2 weeks ago seen and felt in Hospital and then sent out on a 5 day steroid course. She says she felt better after that until 3 days ago. [facility] is [facility] She says she's felt chills but no fevers. She is not having any nausea but she is having some chest pain that starts substernal and radiates to her epigastric region. She does not have a history of coronary artery disease. The patient says she has been wearing her BiPAP at night. Allergies and Home Medications Allergies Coded Allergies: buspirone (Verified Allergy, Mild, 05/02/17) Made"legs Shaky" amitriptyline (Verified Allergy, Unknown, 05/02/17) " MAKES ME DO WEIRD THINGS LIKE WALK IN MY SLEEP AND HAVE HALLUCINATIONS." Home Medications Albuterol Sulfate 1 Puff Puff, 2 PUFF IH Q4H PRN for SHORTNESS OF BREATH, ( Reported) 1 PUFF = 90 MCG Dulaglutide 0.75 Mg/0.5 Ml Pen.injctr, 0.75 MG SQ Th, (Reported) Fluticasone/Salmeterol 1 Each Blst.w.dev, 1 PUFF IH BID, (Reported) Glimepiride 1 Mg Tablet, 1 MG PO DAILY PRN for WHEN TAKING PREDNISONE, (Reported ) Ipratropium/Albuterol Sulfate 3 Ml Ampul.neb, 3 ML IH QID PRN for SHORTNESS OF BREATH, (Reported) Loperamide HCl 2 Mg Capsule, 2 MG PO UD PRN for DIARRHEA, (Reported) Metoprolol Tartrate 25 Mg Tablet, 12.5 MG PO BID, (Reported) TAKES 1/2 (25MG) TABLET / LAST FILLED 04/16/17 #30 Pantoprazole Sodium 40 Mg Tablet.dr, 40 MG PO BID, (Reported) LAST FILLED 05/05/17 #60 Prednisone 10 Mg Tab.ds.pk, 10 MG PO DAILY Take 6 tabs(60mg)daily,decrease by 1 tab(10MG)daily. Prescribed by: RODY ALDANA on 08/06/17 1029 Sucralfate 1 Gm Tablet, 1 GM PO ACHS, (Reported) LAST FILLED 05/05/17 #120 Tiotropium [place] 1 Inh Aerp, 1 CAP IH DAILY, (Reported) Patient Home Medication List Home Medication List Reviewed: Yes Review of Systems Constitutional: chills, diaphoresis; No fever; malaise, weakness EENTM: No ear discharge, No ear pain Respiratory: cough, orthopnea; No phlegm; short of breath; No stridor; wheezing Cardiovascular: chest pain; No Hx of Intervention; palpitations Gastrointestinal: No abdominal pain, No constipation, No diarrhea, No nausea, No vomiting Genitourinary: No discharge, No dysuria Musculoskeletal: No back pain, No joint pain Skin: No pruritus, No rash Psychiatric/Neurological: Denies Headache, Denies Numbness Past Fwixgmv-Jylpsp-Tzbvfw Hx Patient Social History Alcohol Use: Denies Use Recreational Drug Use: Yes Drug of Choice: +IV METH past hx Smoking Status: Current Everyday Smoker Type Used: Cigarettes (0.25 ppd) 2nd Hand Smoke Exposure: Yes Recent Hopitalizations: Yes Immunizations Up To Date Tetanus Booster (TDap): Unknown Date of Pneumonia Vaccine: Dec 08, 2011 Date of Influenza Vaccine: Dec 31, 2016 Seasonal Allergies Seasonal Allergies: No Past Medical History Surgeries: No Respiratory: Yes (O2 AT 2-3L/NC) Asthma, Sleep Apnea, COPD, Emphysema Currently Using CPAP: No Currently Using BIPAP: Yes (PT. STATED) Cardiac: Yes (HAD HEART CATH. 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 Sexually Transmitted Disease: No HIV/AIDS: No Genitourinary: No Gastrointestinal: Yes Chronic Constipation, Chronic Diarrhea Musculoskeletal: Yes (chronic shoulder and neck pain) Endocrine: Yes (DM- only while on steriods per pt) Diabetes, Non-Insulin dep HEENT: No Cancer: No Psychosocial: Yes Sleep Difficulties, Anxiety, Suicide Attempts, Bipolar, Depression Integumentary: No Blood Disorders: No Adverse Reaction/Blood Tranf: No Family Medical History Cancer 03 MOTHER, Onset:66 (LUNG ) 09 BROTHER (LUNG ) Congestive heart failure 03 FATHER Heart Disease, Cancer Physical Exam Vital Signs Vital Signs - First Documented 08/23/17 20:45 Temp 97.5 Pulse 112 Resp 30 B/P (MAP) 90/74 (79) Pulse Ox 98 O2 Delivery Nasal Cannula O2 Flow Rate 6.00 FiO2 100 Capillary Refill : General Appearance: WD/WN, moderate distress Eyes: Bilateral Eye Normal Inspection, Bilateral Eye PERRL, Bilateral Eye EOMI HEENT: PERRL/EOMI, normal ENT inspection, TMs normal, pharynx normal (mildly dry oral mucous membranes) Neck: full range of motion, normal inspection Respiratory: chest non-tender, respiratory distress (mild), decreased breath sounds, accessory muscle use (increased); No rales; rhonchi (left-sided); No wheezing Cardiovascular: normal peripheral pulses, regular rate, rhythm, no edema Gastrointestinal: normal bowel sounds, non tender, soft Extremities: non-tender, normal capillary refill Neurologic/Psychiatric: alert, normal mood/affect, oriented x 3 Skin: normal color, warm/dry Progress/Results/Core Measures Suspected Sepsis SIRS Temperature: Pulse: Respiratory Rate: Laboratory Tests 08/23/17 20:50: White Blood Count 10.6 Blood Pressure / Mean: Laboratory Tests 08/23/17 20:50: Creatinine 0.75, INR Comment 1.0, Platelet Count 364, Total Bilirubin 0.9 Results/Orders Lab Results Laboratory Tests Test 08/23/17 20:50 Range/Units White Blood Count 10.6 4.3-11.0 10^3/uL Red Blood Count 4.82 4.35-5.85 10^6/uL Hemoglobin 11.7 11.5-16.0 G/DL Hematocrit 37 35-52 % Mean Corpuscular Volume 77 L 80-99 FL Mean Corpuscular Hemoglobin 24 L 25-34 PG Mean Corpuscular Hemoglobin Concent 32 32-36 G/DL Red Cell Distribution Width 17.3 H 10.0-14.5 % Platelet Count 364 130-400 10^3/uL Mean Platelet Volume 10.4 7.4-10.4 FL Neutrophils (%) (Auto) 73 42-75 % Lymphocytes (%) (Auto) 18 12-44 % Monocytes (%) (Auto) 8 0-12 % Eosinophils (%) (Auto) 1 0-10 % Basophils (%) (Auto) 0 0-10 % Neutrophils # (Auto) 7.7 1.8-7.8 X 10^3 Lymphocytes # (Auto) 1.9 1.0-4.0 X 10^3 Monocytes # (Auto) 0.9 0.0-1.0 X 10^3 Eosinophils # (Auto) 0.1 0.0-0.3 10^3/uL Basophils # (Auto) 0.0 0.0-0.1 10^3/uL Prothrombin Time 12.8 12.2-14.7 SEC INR Comment 1.0 0.8-1.4 Activated Partial Thromboplast Time 31 24-35 SEC Blood Gas Puncture Site RIGHT RADIAL Blood Gas Patient Temperature 97.5 Arterial Blood pH 7.42 7.37-7.43 Arterial Blood Partial Pressure CO2 37 35-45 MMHG Arterial Blood Partial Pressure O2 158 H 79-93 MMHG Arterial Blood HCO3 24 23-27 MMOL/L Arterial Blood Total CO2 25.2 21.0-31.0 MMOL/L Arterial Blood Oxygen Saturation 100 94-100 % Arterial Blood Base Excess 0.0 -2.5-2.5 MMOL/L Torsten Test YES-POS Blood Gas Ventilator Setting NO Blood Gas Inspired Oxygen 10L Sodium Level 141 135-145 MMOL/L Potassium Level 3.8 3.6-5.0 MMOL/L Chloride Level 107 98-107 MMOL/L Carbon Dioxide Level 23 21-32 MMOL/L Anion Gap 11 5-14 MMOL/L Blood Urea Nitrogen 6 L 7-18 MG/DL Creatinine 0.75 0.60-1.30 MG/DL Estimat Glomerular Filtration Rate > 60 BUN/Creatinine Ratio 8 Glucose Level 127 H 70-105 MG/DL Calcium Level 9.7 8.5-10.1 MG/DL Magnesium Level 1.5 L 1.8-2.4 MG/DL Total Bilirubin 0.9 0.1-1.0 MG/DL Aspartate Amino Transf (AST/SGOT) 29 5-34 U/L Alanine Aminotransferase (ALT/SGPT) 44 0-55 U/L Alkaline Phosphatase 104 40-136 U/L Troponin I < 0.30 <0.30 NG/ML B-Type Natriuretic Peptide 2042.9 H <100.0 PG/ML Total Protein 7.0 6.4-8.2 GM/DL Albumin 3.9 3.2-4.5 GM/DL Lipase < 4 L 8-78 U/L My Orders Orders - ABIGAIL PASCUAL Albuterol/Ipra Inhalation Soln (Duoneb I (08/23/17 20:37) Albuterol Pre-Mix Nebs (Rt) (Proventil (08/23/17 20:41) Albuterol Pre-Mix Nebs (Rt) (Proventil (08/23/17 20:46) Cbc With Automated Diff (08/23/17 20:43) Comprehensive Metabolic Panel (08/23/17 20:43) Lactic Acid Analyzer (08/23/17 20:43) Blood Culture (08/23/17 20:43) Sputum Culture (08/23/17 20:43) Ua Culture If Indicated (08/23/17 20:43) Protime With Inr (08/23/17 20:43) Partial Thromboplastin Time (08/23/17 20:43) O2 (08/23/17 20:43) Saline Lock/Iv-Start (08/23/17 20:43) Ekg Tracing (08/23/17 20:43) Troponin I (08/23/17 20:43) Vital Signs Adult Sepsis Patie Q15M (08/23/17 20:43) Remove Rings In Anticipation O (08/23/17 20:43) Saline Lock/Iv-Start (08/23/17 20:43) Ns Iv 1000 Ml (Sodium Chloride 0.9%) (08/23/17 20:43) Albuterol Pre-Mix Nebs (Rt) (Proventil (08/23/17 20:43) Albuterol/Ipra Inhalation Soln (Duoneb I (08/23/17 20:45) Magnesium (08/23/17 20:43) O2 (08/23/17 20:43) Monitor-Rhythm Ecg Trace Only (08/23/17 20:43) Aspirin Chewable Tablet (Baby Aspirin Ch (08/23/17 20:45) Saline Lock/Iv-Start (08/23/17 20:43) Lipase (08/23/17 20:43) BNP (08/23/17 20:43) Svn Small Volume Nebulizer (08/23/17 20:43) Drug Screen Stat (Urine) (08/23/17 20:51) Arterial Blood Gas (08/23/17 20:52) Lorazepam Injection (Ativan Injection) (08/23/17 21:15) Lorazepam Injection (Ativan Injection) (08/23/17 21:12) Chest 1 View, Ap/Pa Only (08/23/17 21:16) Medications Given in ED Current Medications Medications Dose Ordered Sig/Vladimir Route Start Time Stop Time Status Last Admin Dose Admin Albuterol/ Ipratropium 3 ml STK-MED ONCE .ROUTE 08/23/17 20:37 08/23/17 20:39 DC 08/23/17 20:48 3 ML Aspirin 324 mg ONCE ONCE PO 08/23/17 20:45 08/23/17 20:50 DC 08/23/17 21:09 324 MG Lorazepam 2 mg ONCE ONCE IVP 08/23/17 21:15 08/23/17 21:16 DC 08/23/17 21:14 2 MG Vital Signs/I&O 08/23/17 08/23/17 20:45 20:45 Temp 97.5 Pulse 112 Resp 30 B/P (MAP) 90/74 (79) Pulse Ox 98 99 O2 Delivery Nasal Cannula Nasal Cannula O2 Flow Rate 6.00 6.00 FiO2 100 Capillary Refill : Progress Note #1: Time: 20:56 Progress Note Probably tachyphylactic given her frequent use of the DuoNeb sorted and give her a some 0.5 mg albuterol in addition to a DuoNeb and reevaluate. We'll get a 2 view chest and a liter fluids as well as a septic workup given her tachycardia however should also all be related just respiratory distress second or COPD so given ABG. Echocardiogram [address] Auguste showing mild to moderate wall thickness increase in a EF of 45-50%. Systolic function is normal. Concentric hypertrophy. Grade 1 diastolic dysfunction. Cardiac catheterization by Dr. Auguste in 2015 demonstrates significant improvement in left ventricular systolic function up to 45-50%. Mild coronary artery disease nonobstructive disease. Hemodynamics suggestive of an atrial septal defect with [id number]-[id number] shunt. Progress Note #2: Time: 21:40 Progress Note Breathing improved only mildly on the breathing treatments and oxygen and she was wheezing quite a bit of sensory muscles to breathe so we put her on BiPAP. ABG is pretty much unremarkable. Her BNP is mildly elevated above last time about 500 it's now over 2000. 2000 1700. She does have a history of dilated cardiomyopathy. They stopped her IV fluids and may use some Lasix. She does have a history of grade 1 diastolic dysfunction. ECG Initial ECG Impression Date: Aug 23, 2017 Initial ECG Impression Time: 20:48 Initial ECG Rate: 112 Initial ECG Rhythm: S.Tach Initial ECG Intervals: Normal Initial ECG Impression: Nonspecific Changes (sinus tachycardia) Initial ECG Comparisson: Unchanged Comment No ST elevation or depression. Diagnostic Imaging Diagonstic Imaging: Xray Plain Films/CT/US/NM/MRI: chest (2v) Comments Stable cardiomegaly. Mild pleural effusion seen on the right side not seen . There is mild pulmonary congestion. Reviewed: Reviewed by Me Consults Consults : Consulting Physician: CONNOR ZEPEDA DO Consults Notes Discussed the case with Dr. Zepeda who is well acquainted with the patient. She says is been some concern that the patient will come in with stable lung disease and show a lot of anxiety just to get benzodiazepines. She's been cut off from benzodiazepines outpatient. 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 The patient does have oxygen at the same level she is using now as well as a BiPAP at home. She has plenty of the DuoNeb she assures me and so we will make sure she has steroids. 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 The patient understood the plan and agrees with plan this time. We have encouraged her to return to the ER if her symptoms worsen or she is unable to tolerate the same BiPAP, oxygen and DuoNeb at home and she is received here in addition to the steroids. Departure Impression Primary Impression: COPD (chronic obstructive pulmonary disease) Qualified Codes: J44.9 - Chronic obstructive pulmonary disease, unspecified Disposition: 01 HOME, SELF-CARE Condition: Improved Departure-Patient Inst. Decision time for Depature: 21:55 Referrals: [facility] (PCP) Primary Care Physician ALIZA CARTER (Family) Primary Care Physician Patient Instructions: COPD Including Emphysema (DC) Add. 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 Take one tablet daily for the next 5 days. Take one half tablet for the next 6 days. Tomorrow morning please call Dr. Trivedi, pulmonology's office and try to get in within the next 1-2 weeks to review your COPD management and steroid use. Scripts Prednisone (Prednisone) 20 Mg Tab 40 MG PO DAILY for 16 Days, #18 TAB 0 Refills 2 tabs daily for 5 days then, 1 tab daily for 5 days then, 1/2 tab daily for 6 days. Prov: ABIGAIL PASCUAL 08/23/17 Copy Copies To 1: CONNOR ZEPEDA DO ABIGAIL PASCUAL Aug 23, 2017 20:51
--- OUTSIDE RECORDS SUMMARY | 2017-08-23 20:54 | XMS REPORT ---
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 Active Problem Thrush B37.0 Active 75674367 Problem TMJ (sprain of temporomandibular joint) S03.4XXA Active 50462602 Problem Tobacco abuse Z72.0 Active 47665179 Problem Non morbid obesity due to excess calories E66.09 Active 961517330 Problem Migraine G43.909 Active 00344653 Problem History of MRSA infection Z86.14 Active 454398385 Problem Knee pain, left M25.562 Active 94406868 Problem Obesity, unspecified obesity severity, unspecified obesity type E66.9 Active 406676420 Problem Migraine without aura and without status migrainosus, not intractable G43.009 Active 227648427 Problem Other emphysema J43.8 Active 70337991 Problem Chronic obstructive pulmonary disease with acute exacerbation J44.1 Active 536815809 Problem Intractable cyclical vomiting with nausea G43.A1 Active 73819497 Problem Chronic constipation K59.09 Active 875333857 Problem Acute bronchitis with COPD J44.0 Active [id number] Problem Encounter for tobacco use cessation counseling Z71.6 Active 132443411 Problem Methamphetamine use disorder, moderate, 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 Active 57379977 Problem Chronic bronchitis, unspecified chronic bronchitis type J42 Active 31532288 Problem Viral illness B34.9 Active 92378009 Problem Diabetes E11.9 Active 168830386 Problem Memory loss R41.3 Active 16577046 Problem Left knee pain M25.562 Active 31485870 Problem Dry mouth R68.2 Active 45529720 Problem Yeast vaginitis B37.3 Active 64378767 Problem Generalized anxiety disorder F41.1 Active 29015026 Problem Bipolar disorder with depression F31.30 Active 02312741 Problem Bipolar disorder, unspecified F31.9 Active 59596309 Problem Bipolar disorder, current episode depressed, severe, without psychotic features F31.4 Active 16588601 ALLERGIES No Information ENCOUNTERS Encounter Location Date Diagnosis [facility] [address] [address] July, Diabetes E11.9 and Chronic obstructive pulmonary disease with acute exacerbation J44.1 [place] [address] 35427- 1345 Jun, Chronic obstructive pulmonary disease with acute exacerbation J44.1 ; Diabetes E11.9 and Tobacco abuse Z72.0 [place] [address] 59183- 7518 Jun, [facility] [address] 22907- 1028 Jun, [facility] [address] 0[address]36- 4948 May, [facility] [id number] [place] [address] 88145- 3411 May, [facility] [id number] [place] [address] 86348 -4883 17 May, 2017 [facility] [id number] [place] [address] 20317- 1660 16 May, 2017 [facility] [address] 39336- 6760 15 May, 2017 [facility] [id number] [place] [address] 65727- 6766 14 May, 2017 Diarrhea, unspecified type R19.7 and Intractable cyclical vomiting with nausea G43.A1 [facility] [id number] [place] [address] 52258- 1983 12 May, 2017 [facility] [address] 45178- 0828 05 May, 2017 [facility] [address] 89390- 2705 28 Apr, 2017 COPD exacerbation J44.1 ; Esophageal candidiasis B37.81 ; Other acute gastritis with hemorrhage K29.01 and Acute posthemorrhagic anemia D62 [facility] [address] 70037- 8266 Apr, Viral illness B34.9 and COPD exacerbation J44.1 [facility] [address] 39701 -3384 Apr, Shortness of breath R06.02 and Pneumonia of both lower lobes due to infectious organism J18.9 [facility] [place] [address] 20[address] -0804 Mar, COPD with acute exacerbation J44.1 [place] [address] 68787- 1635 Mar, Chronic obstructive pulmonary disease with acute exacerbation J44.1 and Diabetes E11.9 [place] [address] 99306- 7802 Mar, [place] [address] 30888- 1513 Mar, [facility] [id number] [place] [address] 62152 -5818 Mar, COPD exacerbation J44.1 [place] [address] 49659- 7503 Mar, [place] [address] 76616- 1282 Mar, Migraine G43.909 ; Hypokalemia E87.6 and Type 2 diabetes mellitus without complications E11.9 [facility] [address] [address] Feb, [facility] [id number] [place] [address] 19710- 3208 Feb, [facility] [id number] [place] [address] 96364- 1621 Feb, Methamphetamine use disorder, moderate, 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 ; Major depressive disorder, recurrent, moderate F33.1 ; Anxiety disorder, unspecified F41.9 and Tobacco abuse Z72.0 [facility] [id number] [place] [address] 09455- 6335 30 Jan, 2017 Major depressive disorder, recurrent, moderate F33.1 [place] [id number] [place] [address] 79639- 5003 16 Jan, 2017 [facility] [id number] [place] [address] 01172- 5341 Jan, [facility] [id number] [place] [address] 71597- 1829 Jan, Major depressive disorder, recurrent, moderate F33.1 [place] [id number] [place] [address] 07674- 2759 Jan, Major depressive disorder, recurrent, moderate F33.1 ; Anxiety disorder, unspecified F41.9 ; Methamphetamine use disorder, moderate, 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 and Tobacco abuse Z72.0 [facility] [address] [address] 1167 Jan, [facility] [id number] [place] [address] 25628- 3379 Jan, Chronic obstructive pulmonary disease with acute exacerbation J44.1 and Diabetes E11.9 [facility] [id number] [place] [address] 23693- 7861 06 Jan, 2017 [facility] [id number] [place] [address] 46032- 6790 Jan, [facility] [id number] [place] [address] 57805- 9927 Dec, Acute respiratory failure with hypoxia J96.01 ; Chronic bronchitis, unspecified chronic bronchitis type J42 and Tobacco use Z72.0 [facility] [id number] [place] [address] 92218- 2414 Dec, [facility] [id number] [place] [address] [phone] Nov, Dental caries K02.9 and Dental examination Z01.20 [facility] [id number] [place] [address] 28981- 1989 Nov, Major depressive disorder, recurrent, moderate F33.1 ; Anxiety disorder, unspecified F41.9 and 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 [facility] [id number] [place] [address] [phone] Oct, Dental examination Z01.20 [facility] [id number] [place] [address] 91063- 5189 Oct, [facility] [id number] [place] [address] 10595- 1376 Oct, Diabetes E11.9 and Thrush B37.0 [facility] [id number] [place] [address] 68181- 9157 Oct, [facility] [id number] [place] [address] 29365- 5455 Oct, [facility] [id number] [place] [address] 86019- 9240 Oct, [facility] [id number] [place] [address] 84697- 5014 Sep, Major depressive disorder, recurrent, moderate F33.1 ; Anxiety disorder, unspecified F41.9 and Bipolar disorder, unspecified F31.9 [facility] [id number] [place] [address] 41785- 8604 Sep, Acute exacerbation of chronic obstructive pulmonary disease (COPD) J44.1 and Migraine G43.909 [facility] [id number] [place] [address] 78909- 6576 Sep, [facility] [id number] [place] [address] [phone] Sep, [facility] [id number] [place] [address] 64834- 5622 Sep, Acute exacerbation of chronic obstructive pulmonary disease (COPD) J44.1 [facility] [id number] [place] [address] 85133 -9018 Sep, Acute exacerbation of chronic obstructive pulmonary disease (COPD) J44.1 [facility] [id number] [place] [address] 01959- 2955 Aug, [facility] [id number] [place] [address] 00791- 0486 Aug, Major depressive disorder, recurrent, moderate F33.1 ; Anxiety disorder, unspecified F41.9 and 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 [facility] [id number] [place] [address] 53403- 8921 Aug, Wheezing R06.2 ; Non morbid obesity due to excess calories E66.09 ; Migraine without aura and without status migrainosus, not intractable G43.009 and Tobacco abuse Z72.0 [facility] [id number] [place] [address] [phone] 14 Aug, 2016 Encounter for dental examination Z01.20 [facility] [id number] [place] [address] 87018- 0492 02 Aug, 2016 Major depressive disorder, recurrent, moderate F33.1 ; Anxiety disorder, unspecified F41.9 and 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 [facility] [id number] [place] [address] 86402- 5927 July, [place] [id number] [place] [address] 52944- 0758 July, [facility] [id number] [place] [address] 74938- 9832 July, [place] [id number] [place] [address] 95253- 5153 July, Diabetes E11.9 [place] [address] 72356- 6396 Jun, Major depressive disorder, recurrent, moderate F33.1 [place] [id number] [place] [address] 31402- 8890 Jun, Major depressive disorder, recurrent, moderate F33.1 ; 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 ; Generalized anxiety disorder F41.1 and Bipolar disorder, unspecified F31.9 [place] [id number] [place] [address] 48387- 0458 Jun, Diabetes E11.9 ; Migraine G43.909 ; Thrush B37.0 and Wheezing R06.2 [facility] [address] [id number] Jun, Dental examination Z01.20 [place] [id number] [place] [address] 91826- 1796 Jun, [facility] [id number] [place] [address] 93317- 2731 Jun, Major depressive disorder, recurrent, moderate F33.1 ; Anxiety disorder, unspecified F41.9 and 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 [facility] [id number] [place] [address] 23147- 5743 Jun, [facility] [id number] [place] [address] 47916- 5965 Jun, Wheezing R06.2 [facility] [address] [id number] Jun, Dental caries K02.9 [facility] [id number] [place] [address] 08780- 0312 Jun, Major depressive disorder, recurrent, moderate F33.1 ; Anxiety disorder, unspecified F41.9 and 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 [facility] [id number] [place] [address] 45402- 2508 Jun, RLQ abdominal pain R10.31 ; Diabetes E11.9 ; Obesity, unspecified obesity severity, unspecified obesity type E66.9 ; Wheezing R06.2 and Abnormal urinalysis R82.90 [place] [id number] [place] [address] 13365- 1295 May, [place] [id number] [place] [address] 17144- 1732 May, Well woman exam Z01.419 ; Breast cancer screening Z12.39 ; Cervical cancer screening Z12.4 ; Urinary frequency R35.0 ; Edema, unspecified type R60.9 and Chronic constipation K59.09 [place] [id number] [place] [address] 09379- 2884 May, Major depressive disorder, recurrent, moderate F33.1 ; Anxiety disorder, unspecified F41.9 and 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 [facility] [id number] [place] [address] [phone] May, Dental examination Z01.20 [facility] [id number] [place] [address] 03882- 2216 May, [facility] [address] 02447- 9982 May, [facility] [id number] [place] [address] 45818- 3091 May, Chronic constipation K59.09 [facility] [address] 98579- 1265 Apr, [place] [id number] [place] [address] 76125- 4883 Apr, Major depressive disorder, recurrent, moderate F33.1 ; Anxiety disorder, unspecified F41.9 and 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 [place] [id number] [place] [address] 24849- 5497 Apr, [place] [id number] [place] [address] 02021- 0506 Mar, Major depressive disorder, recurrent, moderate F33.1 [place] [id number] [place] [address] 27343- 0602 Mar, Major depressive disorder, recurrent, moderate F33.1 ; Generalized anxiety disorder F41.1 and Bipolar I disorder, most recent episode depressed with anxious distress F31.30 [place] [id number] [place] [address] 24972- 7046 Mar, Diabetes E11.9 ; Non morbid obesity due to excess calories E66.09 ; Breast cancer screening Z12.39 and Encounter for immunization Z23 [place] [id number] [place] [address] 01491- 3575 Mar, Major depressive disorder, recurrent, moderate F33.1 ; Anxiety disorder, unspecified F41.9 and 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 [place] [id number] [place] [address] 68066- 1082 Mar, [place] [id number] [place] [address] 61498- 3394 Feb, Major depressive disorder, recurrent, moderate F33.1 ; Anxiety disorder, unspecified F41.9 and 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 [place] [id number] [place] [address] 42060- 9869 Feb, [place] [id number] [place] [address] 52783- 9630 Feb, [facility] [id number] [place] [address] 71254- 5877 Jan, Major depressive disorder, recurrent, moderate F33.1 ; Generalized anxiety disorder F41.1 and Bipolar disorder, current episode depressed, severe, without psychotic features F31.4 [facility] [id number] [place] [address] 79636- 0903 Jan, Major depressive disorder, recurrent, moderate F33.1 ; Anxiety disorder, unspecified F41.9 and 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 [facility] [id number] [place] [address] 79541- 6935 Jan, Bronchitis J40 [facility] [id number] [place] [address] 79620- 5276 Jan, [facility] [id number] [place] [address] 01262- 2408 Jan, [facility] [id number] [place] [address] 67298- 8358 Jan, Elbow injury, right, initial encounter S59.901A ; Multiple contusions T14.8 and Cervical strain, acute, initial encounter S16.1XXA [facility] [id number] [place] [address] 20661- 5944 Dec, Major depressive disorder, recurrent, moderate F33.1 ; Generalized anxiety disorder F41.1 and Bipolar disorder with depression F31.30 [facility] [id number] [place] [address] 38867- 5454 Dec, [facility] [id number] [place] [address] 60108- 7506 Dec, [facility] [id number] [place] [address] 78034- 9936 Dec, [facility] [id number] [place] [address] 12437- 2455 Dec, [facility] [address] [address]- 7291 Dec, Yeast infection B37.9 [place] [id number] [place] [address] 04587- 9373 Dec, Pneumonia of both lungs due to methicillin resistant Staphylococcus aureus (MRSA), unspecified part of lung J15.212 and Benzodiazepine overdose, accidental or unintentional, subsequent encounter T42.4X1D [place] [id number] [place] [address] 52898- 7056 Dec, [place] [id number] [place] [address] 42625- 2761 Dec, [place] [id number] [place] [address] 31507- 9299 Dec, Knee pain, left M25.562 and Edema, unspecified type R60.9 [place] [id number] [place] [address] 69259- 8880 Dec, [facility] [id number] [place] [address] 57316- 3918 Dec, Anxiety disorder, unspecified F41.9 and Bipolar disorder, unspecified F31.9 [place] [id number] [place] [address] 22503- 8601 Nov, Major depressive disorder, recurrent, moderate F33.1 ; Anxiety disorder, unspecified F41.9 and 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 [place] [address] [address]- 8463 Nov, [facility] [id number] [place] [address] 28631- 5913 Nov, Migraine without aura and without status migrainosus, not intractable G43.009 [facility] [id number] [place] [address] 32768- 7854 Nov, Migraine G43.909 [place] [id number] [place] [address] 19272- 2717 Nov, [place] [id number] [place] [address] 63795- 6922 Nov, Major depressive disorder, recurrent, moderate F33.1 ; Anxiety disorder, unspecified F41.9 and 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 [place] [id number] [place] [address] 66572- 4408 Oct, Chronic constipation K59.09 and Obesity, unspecified obesity severity, unspecified obesity type E66.9 [place] [id number] [place] [address] 82425- 3876 Oct, Obesity, unspecified obesity severity, unspecified obesity type E66.9 ; Chronic constipation K59.09 and Anxiety disorder, unspecified F41.9 [place] [id number] [place] [address] 41608- 9151 Oct, [place] [id number] [place] [address] 67555- 5307 Sep, Diabetes E11.9 ; Edema, unspecified type R60.9 ; Varicose vein of leg I83.90 and Obesity, unspecified obesity severity, unspecified obesity type E66.9 [place] [id number] [place] [address] 92171- 2218 Sep, Edema, unspecified type R60.9 ; Diabetes E11.9 and Knee pain , left M25.562 [place] [id number] [place] [address] 21096- 8418 Sep, [place] [id number] [place] [address] 71859- 5131 Sep, [place] [id number] [place] [address] 24100- 1327 Sep, Major depressive disorder, recurrent, moderate F33.1 ; Generalized anxiety disorder F41.1 and Bipolar disorder, unspecified F31.9 [facility] [address] [address]- 3873 30 Aug, 2015 Chondromalacia of left knee M94.262 [facility] [id number] [place] [address] 85036- 4020 24 Aug, 2015 Major depressive disorder, recurrent, moderate F33.1 ; Anxiety disorder, unspecified F41.9 and 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 [facility] [id number] [place] [address] 60739- 4133 Aug, [facility] [id number] [place] [address] 78406- 5562 Aug, Osteoarthritis of left knee M17.9 [facility] [id number] [place] [address] 71584- 2899 Aug, [facility] [id number] [place] [address] 29465- 8745 July, Major depressive disorder, recurrent, moderate F33.1 ; Anxiety disorder, unspecified F41.9 and 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 [facility] [id number] [place] [address] 56565- 2483 July, [facility] [id number] [place] [address] 91207- 2818 July, Chronic constipation K59.09 [facility] [id number] [place] [address] 41087- 4208 Jun, [facility] [id number] [place] [address] 73263- 1607 Jun, [facility] [id number] [place] [address] 62279- 7539 14 Jun, 2015 Osteoarthritis of left knee M17.9 [facility] [id number] [address] Jun, [facility] [id number] [place] [address] [id number]- [phone] Jun, Generalized anxiety disorder F41.1 ; Bipolar disorder, unspecified F31.9 and Major depressive disorder, recurrent, moderate F33.1 [place] [address] [place] [id number] [place] [address] [phone]- 0843 Jun, Migraine G43.909 [place] [address] [address]- [address] Jun, Left knee pain M25.562 ; Chronic constipation K59.09 ; Dry mouth R68.2 ; Yeast vaginitis B37.3 and Memory loss R41.3 [place] [address] 75506- 8758 Jun, [place] [address] 81034- 8056 May, [place] [address] 20004- 6920 May, [place] [address] 89661- 9427 May, [place] [address] 66059- 2587 May, [place] [address] [place] [id number] [place] [address] 24464- 7837 May, Acute bronchitis with COPD J44.0 ; Knee pain, left M25.562 and Encounter for tobacco use cessation counseling Z71.6 [place] [address] [place] [id number] [place] [address] 19537- 7439 May, [place] [address] 00291- 7967 Apr, Diabetes E11.9 ; TMJ (sprain of temporomandibular joint) S03.4XXA ; Tobacco abuse Z72.0 ; Migraine G43.909 and Anxiety F41.9 [place] [id number] [place] [address] 11399- 9311 Apr, Generalized anxiety disorder F41.1 and Bipolar disorder, unspecified F31.9 [facility] [id number] [place] [address] 50241- 8996 Apr, Major depressive disorder, recurrent, moderate F33.1 ; Anxiety disorder, unspecified F41.9 and 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 [facility] [id number] [place] [address] 61242- 3324 Apr, [facility] [id number] [place] [address] 31270- 3596 Mar, [facility] [id number] [place] [address] 81432- 9044 Feb, [facility] [address] [place] [address] [id number] [place] [address] 58954- 9190 Feb, Major depressive disorder, recurrent, moderate F33.1 ; Anxiety disorder, unspecified F41.9 and 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 [facility] [id number] [place] [address] 01381- 4236 Feb, [facility] [id number] [place] [address] 14223- 3123 Feb, Generalized anxiety disorder F41.1 and Bipolar disorder, unspecified F31.9 [facility] [id number] [place] [address] 42171- 2815 Jan, [facility] [id number] [place] [address] 79257- 9936 Jan, [facility] [id number] [place] [address] 00714- 6109 Jan, Bipolar disorder, unspecified F31.9 and Generalized anxiety disorder F41.1 [facility] [id number] [place] [address] 73384- 9401 Dec, [facility] [id number] [place] [address] 07585- 1011 Dec, Bipolar disorder, unspecified F31.9 and Generalized anxiety disorder F41.1 [facility] [address] [id number] [place] [address] 77865- 3228 Dec, Generalized anxiety disorder F41.1 and Major depressive disorder, recurrent, moderate F33.1 [facility] [address] [place] [id number] [place] [address] 40196- 3406 Oct, Headache 784.0 ; Cough 786.2 ; Vomiting and diarrhea 787.03 and Dysuria 788.1 [facility] [address] 17420- 1018 Aug, [facility] [address] 92592- 3680 Aug, Headache 784.0 and Shortness of breath 786.05 [facility] [address] [place] [id number] [place] [address] 34658- 9283 Aug, [facility] [address] [place] [id number] [place] [address] 74620- 5088 Aug, Migraine 346.90 [facility] [address] [id number] [place] [address] 15276- 7076 Jun, [facility] [address] [place] [id number] [place] [address] 21739- 0219 Jun, [facility] [id number] [place] [address] 57732- 5724 May, [facility] [address] [place] [place] [id number] [place] [address] 39243- 4483 May, [facility] [address] [place] [id number] [place] [address] 50520- 3879 May, [facility] [address] [place] [id number] [place] [address] 28333- 4886 May, [facility] [address] [facility] [id number] [place] [address]- 6874 May, 2014 [facility] [place] [facility] [address] [id number] [place] [address]- 6802 May, [facility] [place] [facility] [address] [id number] [place] [address]- 7636 Apr, 2014 [facility] [place] [facility] [address] [id number] [place] [address]- 2014 Apr, 2014 [facility] [place] [facility] [address] [id number] [place] [address]- 4249 Apr, 2014 [facility] [place] [facility] [address] [id number] [place] [address]- 4836 Apr, 2014 [facility] [place] [facility] [address] [id number] [place] [address]- 7007 Apr, [facility] [place] [facility] [address] [id number] [place] [address]- 0493 Mar, [facility] [place] [facility] [address] [id number] [place] [address]- 1492 Mar, [facility] [place] [facility] [address] [id number] [place] [address]- 4414 Mar, [facility] [place] [facility] [address] [id number] [place] [address]- 2569 Mar, [facility] [place] [facility] [address] [id number] [place] [address]- 0918 Feb, [facility] [place] [facility] [address] [id number] [place] [address]- 8831 Feb, [facility] [place] [facility] [address] [id number] [place] [address]- 5280 Feb, [facility] [place] [facility] [address] [id number] [place] [address]- 2769 Feb, [facility] [place] [facility] [address] [id number] [place] [address]- 6146 Feb, [facility] [place] [facility] [address] [id number] [place] [address]- 2648 Feb, [facility] [place] [facility] [address] [id number] [place] 7386 Feb, [facility] [place] [facility] [address] [id number] [place] [address]- 4449 Feb, [facility] [place] [facility] [address] [id number] [place] [address]- 8577 Feb, [facility] [place] [facility] [address] [id number] [place] [address]- 1174 Feb, [facility] [place] [facility] [address] [id number] [place] [address]- 9210 Feb, [facility] [place] [facility] [address] [id number] [place] [address]- 9781 Feb, [facility] [place] [facility] [address] [id number] [place] [address]- 4833 Jan, [facility] [place] [facility] [address] [id number] [place] [address]- 8856 Jan, [facility] [place] [facility] [address] [id number] [place] [address]- 4961 Dec, [facility] [place] [facility] [address] [id number] [place] [address]- 3811 Dec, [facility] [place] [facility] [address] [id number] [place] [address]- 3516 Dec, [facility] [place] [facility] [address] [id number] [place] [address]- 1576 Dec, [facility] [place] [facility] [address] [id number] [place] [address]- 4754 Dec, [facility] [place] [facility] [address] [id number] [place] [address]- 0258 Dec, [facility] [place] [facility] [address] [id number] [place] [address]- 7732 Sep, 2013 [facility] [place] [facility] [address] [id number] [place] [address]- 9068 Sep, [facility] [place] [facility] [address] [id number] [place] [address]- 0702 Sep, [facility] [place] [facility] [address] [id number] [place] [address]- 5400 Sep, 2013 [facility] [place] [facility] [address] [id number] [place] [address]- 7267 Sep, 2013 [facility] [place] [facility] [address] [id number] [place] [address]- 8490 Sep, [facility] [place] [facility] [address] [id number] [place] [address]- 5615 Sep, [facility] [place] [facility] [address] [id number] [place] [address]- 0374 Sep, [facility] [place] [facility] [address] [id number] [place] [address]- 6672 Sep, [facility] [place] [facility] [address] [id number] [place] [address]- 9817 Sep, [facility] [place] [facility] [address] [id number] [place] [address]- 6232 Aug, [facility] [place] [facility] [address] [id number] [place] [address]- 3248 Aug, [facility] [place] [facility] [address] [id number] [place] [address]- 2484 Aug, [facility] [place] [facility] [address] [id number] [place] [address]- 0035 Aug, [facility] [place] [facility] [address] [id number] [place] [address]- 6818 Aug, [facility] [place] [facility] [address] [id number] [place] [address]- 1575 Aug, [facility] [place] [facility] [address] [id number] [place] [address]- 4912 Aug, [facility] [place] [facility] [address] [id number] [place] [address]- 9667 Aug, [facility] [place] [facility] [address] [id number] [place] [address]- 3773 Aug, [facility] [place] [facility] [address] [id number] [place] [address]- 2977 Aug, [facility] [place] [facility] [address] [id number] [place] [address]- 9793 Aug, [facility] [place] [facility] [address] [id number] [place] [address]- 2940 Aug, [facility] [place] [facility] [address] [id number] [place] [address]- 2538 Aug, [facility] [place] [facility] [address] [id number] [place] [address]- 1523 July, [facility] [place] [facility] [address] [id number] [place] [address]- 8714 July, [facility] [place] [facility] [address] [id number] [place] [address]- 7332 July, [facility] [place] [facility] [address] [id number] [place] [address]- 7855 July, [facility] [place] [facility] [address] [id number] [place] [address]- 5674 July, [facility] [place] [facility] [address] [id number] [place] [address]- 9391 July, [facility] [place] [facility] [address] [id number] [place] [address]- 6539 July, [facility] [place] [facility] [address] [id number] [place] [address]- 1167 Jun, [facility] [place] [facility] [address] [id number] [place] [address]- 1111 23 Jun, 2013 [facility] [place] [facility] [address] [id number] [place] [address]- 8105 18 Jun, 2013 [facility] [place] [facility] [address] [id number] [place] [address]- 4606 16 Jun, 2013 [facility] [place] [facility] [address] [id number] [place] [address]- 3484 16 Jun, 2013 [facility] [place] [facility] [address] [id number] [place] [address]- 6645 Jun, [facility] [place] [facility] [address] [id number] [place] [address]- 1246 Jun, [facility] [place] [facility] [address] [id number] [place] [address]- 2466 17 May, 2013 [facility] [place] [facility] [address] [id number] [place] [address]- 8952 17 May, 2013 [facility] [place] [facility] [address] [id number] [place] [address]- 1371 14 May, 2013 [facility] [place] [facility] [address] [id number] [place] [address]- 7168 14 May, 2013 [facility] [place] [facility] [address] [facility] [id number] [place] [address]- 4381 13 May, 2013 [facility] [place] [facility] [address] [id number] [place] [address]- 2021 13 May, 2013 [facility] [place] [facility] [address] [id number] [place] [address]- 9710 10 May, 2013 [facility] [place] [facility] [address] [id number] [place] [address]- 3970 10 May, 2013 [facility] [place] [facility] [address] [id number] [place] [address]- 6554 07 May, 2013 [facility] [place] [facility] [address] [id number] [place] [address]- 3285 26 Apr, 2013 [facility] [place] [facility] [address] [id number] [place] [address]- 5093 Apr, [facility] [place] [facility] [address] [id number] [place] [address]- 5956 Apr, [facility] [place] [facility] [address] [id number] [place] [address]- 8346 Apr, [facility] [place] [facility] [address] [id number] [place] [address]- 9136 Apr, [facility] [place] [facility] [address] [id number] [place] [address]- 0834 Apr, [facility] [place] [facility] [address] [id number] [place] [address]- 6146 Apr, [facility] [place] [facility] [address] [id number] [place] [address]- 1101 Apr, [facility] [place] [facility] [address] [id number] [place] [address]- 3048 Apr, [facility] [place] [facility] [address] [id number] [place] [address]- 1546 Apr, [facility] [place] [facility] [address] [facility] [id number] [place] [address]- 8512 Mar, [facility] [place] [facility] [address] [id number] [place] [address]- 7941 Mar, [facility] [place] [facility] [address] [id number] [place] [address]- 2579 Mar, [facility] [place] [facility] [address] [id number] [place] [address]- 5484 Mar, [facility] [place] [facility] [address] [id number] [place] [address]- 4394 Mar, [facility] [place] [facility] [address] [id number] [place] [address]- 0588 Mar, [facility] [place] [facility] [address] [id number] [place] [address]- 9036 Mar, [facility] [address] [id number] [place] [address]- 0058 Mar, [facility] [place] [facility] [address] [id number] [place] [address]- 1959 Feb, [facility] [place] [facility] [address] [id number] [place] [address]- 0293 Feb, [facility] [place] [facility] [address] [id number] [place] [address]- 8839 Jan, [facility] [place] [facility] [address] [id number] [place] [address]- 2493 Jan, [facility] [place] [facility] [address] [id number] [place] [address]- 8400 Jan, [facility] [address] [id number] [place] [address]- 9996 Jan, [facility] [place] [facility] [address] [id number] [place] [address]- 3143 Jan, [facility] [place] [facility] [address] [id number] [place] [address]- 6454 Jan, [facility] [place] [facility] [address] [facility] [id number] [place] [address]- 7099 Jan, [facility] [place] [facility] [address] [id number] [place] [address]- 7094 05 Jan, 2013 [facility] [place] [facility] [address] [id number] [place] [address]- 2999 Dec, [facility] [place] [facility] [address] [id number] [place] [address]- 9137 10 Dec, 2012 [facility] [place] [facility] [address] [facility] [id number] [place] [address]- 1222 10 Dec, 2012 [facility] [place] [facility] [address] [id number] [place] [address]- 6794 20 Nov, 2012 [facility] [place] [facility] [address] [id number] [place] [address]- 4625 13 Nov, 2012 [facility] [place] [facility] [address] [id number] [place] [address]- 0686 12 Nov, 2012 [facility] [place] [facility] [address] [id number] [place] [address] 2546 09 Nov, 2012 [facility] [place] [facility] [address] [id number] [place] [address] 2546 06 Nov, 2012 [facility] [place] [facility] [address] [id number] [place] [address] 2540 06 Nov, 2012 [facility] [place] [facility] [address] [id number] [place] [address]- 8583 Oct, [facility] [place] [facility] [address] [id number] [place] [address]- 0152 Oct, [facility] [place] [facility] [address] [id number] [place] [address]- 4183 Sep, [facility] [place] [facility] [address] [id number] [place] [address]- 4761 Sep, [facility] [place] [facility] [address] [id number] [place] [address]- 0591 Sep, [facility] [place] [facility] [address] [id number] [place] [address]- 4165 Sep, [facility] [place] [facility] [address] [id number] [place] [address]- 9828 Sep, [facility] [place] [facility] [address] [id number] [place] [address]- 0241 Sep, [facility] [place] [facility] [address] [id number] [place] [address]- 2546 Sep, [facility] [place] [facility] [address] [id number] [place] [address]- 2547 14 Aug, 2012 [facility] [place] [facility] [address] [id number] [place] [address]- 3632 14 Aug, 2012 [facility] [address] [id number] [place] [address]- 5667 13 Aug, 2012 [facility] [place] [facility] [address] [id number] [place] [address]- 5962 12 Aug, 2012 [facility] [address] [id number] [place] [address]- 2065 Aug, [facility] [place] [facility] [address] [id number] [place] [address]- 8065 Aug, [facility] [address] [id number] [place] [address]- 2566 July, [facility] [address] [id number] [place] [address]- 6916 July, [facility] [address] [id number] [place] [address]- 8427 July, [facility] [place] [facility] [address] [id number] [place] [address]- 3128 July, [facility] [address] [id number] [place] [address]- 4246 July, [facility] [place] [facility] [address] [id number] [place] [address]- 9482 July, [facility] [place] [facility] [address] [id number] [place] [address]- 0790 Jun, [facility] [place] [facility] [address] [id number] [place] [address]- 9234 Jun, [facility] [place] [facility] [address] [id number] [place] [address]- 6257 15 Jun, 2012 [facility] [place] [facility] [address] [id number] [place] [address]- 2123 Jun, [facility] [place] [facility] [address] [id number] [place] [address]- 9139 Jun, [facility] [place] [facility] [address] [id number] [place] [address]- 7743 Jun, [facility] [place] [facility] [address] [id number] [place] [address]- 8798 Jun, [facility] [place] [facility] [address] [facility] [id number] [place] [address]- 2403 May, [facility] [place] [facility] [address] [facility] [id number] [place] [address]- 7455 May, [facility] [place] [facility] [address] [id number] [place] [address]- 7072 26 Apr, 2012 [facility] [place] [facility] [address] [facility] [id number] [place] [address]- 7078 Apr, 2012 [facility] [place] [facility] [address] [facility] [id number] [place] [address]- 59[address] 18 Apr, 2012 [facility] [place] [facility] [address] [id number] [place] [address] Apr, [facility] [place] [facility] [address] [facility] [id number] [place] [address] 12 Apr, 2012 [facility] [place] [facility] [address] [facility] [id number] [place] [address] 08 Apr, 2012 [facility] [place] [facility] [address] [facility] [id number] [place] [address] 78[address] Apr, [facility] [place] [facility] [address] [facility] [id number] [place] [address] 07 Apr, 2012 [facility] [place] [facility] [address] [facility] [id number] [place] [address] 06 Apr, 2012 [facility] [place] [facility] [address] [facility] [id number] [place] [address] Apr, [facility] [place] [facility] [address] [facility] [id number] [place] [address] 03 Apr, 2012 [facility] [place] [facility] [address] [facility] [id number] [place] [address] Mar, [facility] [address] [id number] [place] [address] Mar, [facility] [address] [id number] [place] [address] Mar, [facility] [address] [id number] [place] [address] Mar, [facility] [address] [id number] [place] [address] Mar, [facility] [address] [id number] [place] [address] Mar, [facility] [address] [id number] [place] [address] 4467 Mar, [facility] [address] [id number] [place] [address] 3869 Mar, [facility] [address] [id number] [place] [address] Mar, [facility] [address] [id number] [place] [address] 7636 Mar, [facility] [address] [id number] [place] [address] Mar, [facility] [address] [id number] [place] [address] 44[address] Mar, [facility] [place] [facility] [address] [id number] [place] [address] 119[address] Mar, [facility] [place] [facility] [address] [id number] [place] [address] 3567 Feb, [facility] [place] [facility] [address] [id number] [place] [address] 8394 Feb, [facility] [place] [facility] [address] [id number] [place] [address] 7071 Feb, [facility] [address] [id number] [place] [address] 18 Feb, 2012 [facility] [address] [id number] [place] [address] Feb, [facility] [place] [facility] [address] [id number] [place] [address] 3966 Feb, [facility] [address] [id number] [place] [address] Feb, [facility] [place] [facility] [address] [id number] [place] [address]396 Feb, [facility] [address] [id number] [place] [address] Feb, [facility] [address] [id number] [place] [address] 120[address] Feb, [facility] [address] [id number] [place] [address] 77[address] Feb, [facility] [address] [id number] [place] [address]33 Feb, [facility] [place] [facility] [address] [id number] [place] [address] 56[address] Feb, [facility] [address] [id number] [place] [address]329 Feb, [facility] [place] [facility] [address] [id number] [place] [address] Feb, [facility] [place] [facility] [address] [id number] [place] [address]- [address]166 Jan, [facility] [place] [facility] [address] [id number] [place] [address] Jan, [facility] [place] [facility] [address] [id number] [place] [address]- 2926 Jan, [facility] [place] [facility] [address] [id number] [place] [address]- 8186 Jan, [facility] [place] [facility] [address] [id number] [place] [address]- 7268 Dec, [facility] [place] [facility] [address] [id number] [place] [address]- 4381 Dec, [facility] [place] [facility] [address] [id number] [place] [address]- 2980 Dec, [facility] [place] [facility] [address] [id number] [place] [address]- [address] Dec, [facility] [place] [facility] [address] [id number] [place] [address]- 8198 Dec, [facility] [place] [facility] [address] [id number] [place] [address]- 0136 Dec, [facility] [place] [facility] [address] [id number] [place] [address]- [address] Dec, [facility] [place] [facility] [address] [id number] [place] [address]- [address] Dec, [facility] [place] [facility] [address] [id number] [place] [address]- 3965 Dec, [facility] [place] [facility] [address] [id number] [place] [address]- [address]82 Dec, [facility] [place] [facility] [address] [id number] [place] [address]858 Dec, [facility] [place] [facility] [address] [id number] [place] [address] 95[address] Nov, [facility] [place] [facility] [address] [id number] [place] [address] 24 Sep2011 [facility] [place] [facility] [address] [id number] [place] [address]- 05[address] 20 Sep2011 [facility] [place] [facility] [address] [id number] [place] [address] 19 Sep2011 [facility] [place] [facility] [address] [id number] [place] [address] 17 Sep, 2011 [facility] [place] [facility] [address] [id number] [place] [address] 2546 16 Sep, 2011 [facility] [place] [facility] [address] [id number] [place] [address] 2546 14 Sep, 2011 [facility] [place] [facility] [address] [id number] [place] [address] 2546 13 Sep, 2011 [facility] [place] [facility] [address] [id number] [place] [address]- 3976 12 Sep, 2011 [facility] [place] [facility] [address] [id number] [place] [address]- 1576 07 Sep, 2011 [facility] [place] [facility] [address] [id number] [place] [address] 06 Sep, 2011 [facility] [place] [facility] [address] [id number] [place] [address] 06 Sep, 2011 [facility] [place] [facility] [address] [id number] [place] [address] 05 Nov, 2011 [facility] [place] [facility] [address] [id number] [place] [address] 29 Oct, 2011 [facility] [place] [facility] [address] [id number] [place] [address] 29 Oct, 2011 [facility] [place] [facility] [address] [id number] [place] [address] 2547 28 Oct, 2011 [facility] [place] [facility] [address] [id number] [place] [address] 28 Oct, 2011 [facility] [place] [facility] [address] [id number] [place] [address]60 23 Oct, 2011 [facility] [place] [facility] [address] [id number] [place] [address] 1716 21 Oct, 2011 [facility] [place] [facility] [address] [id number] [place] [address]68 20 Oct, 2011 [facility] [place] [facility] [address] [id number] [place] [address] 16 Oct, 2011 [facility] [place] [facility] [address] [id number] [place] [address] Oct, [facility] [place] [facility] [address] [id number] [place] [address] Oct, [facility] [place] [facility] [address] [id number] [place] [address] Oct, [facility] [place] [facility] [address] [id number] [place] [address] Sep, [facility] [place] [facility] [address] [id number] [place] [address] Sep, [facility] [place] [facility] [address] [id number] [place] [address] 63[address] Sep, [facility] [place] [facility] [address] [id number] [place] [address] Sep, [facility] [place] [facility] [address] [id number] [place] [address] Sep, [facility] [place] [facility] [address] [id number] [place] [address] Sep, [facility] [place] [facility] [address] [id number] [place] [address] Aug, [facility] [place] [facility] [address] [id number] [place] [address] July, [facility] [place] [facility] [address] [id number] [place] [address] July, [facility] [place] [facility] [address] [id number] [place] [address] Jun, [facility] [place] [facility] [address] [id number] [place] [address]16 Jun, [facility] [place] [facility] [address] [id number] [place] [address]- [address] Jun, [facility] [place] [facility] [address] [id number] [place] [address] 4843 Jun, [facility] [place] [facility] [address] [id number] [place] [address] 10 Jun, 2011 [facility] [place] [facility] [address] [id number] [place] [address]658 Jun, [facility] [place] [facility] [address] [id number] [place] [address] Jun, [facility] [place] [facility] [address] [id number] [place] [address] 475[address] Jun, [facility] [place] [facility] [address] [id number] [place] [address] 4784 Jun, [facility] [place] [facility] [address] [id number] [place] [address] 3573 Jun, [facility] [place] [facility] [address] [id number] [place] [address] 3258 Jun, [facility] [place] [facility] [address] [id number] [place] [address] 1661 May, [facility] [place] [facility] [address] [id number] [place] [address] 16 May, 2011 [facility] [place] [facility] [address] [id number] [place] [address] 14 May, 2011 [facility] [place] [facility] [address] [id number] [place] [address] 9[address] 06 May, 2011 [facility] [place] [facility] [address] [id number] [place] [address] 2313 Apr, [facility] [place] [facility] [address] [id number] [place] [address] Apr, [facility] [place] [facility] [address] [facility] [id number] [place] [address] 28[address] Apr, [facility] [place] [facility] [address] [id number] [place] [address] 4[address] Apr, [facility] [address] [id number] [place] [address] Apr, [facility] [place] [facility] [address] [id number] [place] [address]36 Apr, [facility] [address] [id number] [place] [address] 8636 Apr, [facility] [address] [id number] [place] [address]35 Apr, [facility] [address] [id number] [place] [address] 0743 Mar, [facility] [address] [id number] [place] [address]846 Mar, [facility] [address] [id number] [place] [address] 7825 Mar, [facility] [address] [id number] [place] [address]- 5526 Mar, [facility] [address] [id number] [place] [address] Mar, [facility] [address] [id number] [place] [address] 5547 Mar, [facility] [address] [id number] [place] [address]- 6073 Mar, [facility] [address] [id number] [place] [address] 7046 Mar, [facility] [place] [facility] [address] [id number] [place] [address]- 5454 Mar, [facility] [place] [facility] [address] [id number] [place] [address]- 8587 Mar, [facility] [place] [facility] [address] [id number] [place] [address] Mar, [facility] [address] [id number] [place] [address]- 6412 Mar, [facility] [place] [facility] [address] [id number] [place] [address]- 6797 Mar, [facility] [place] [facility] [address] [id number] [place] [address]- 0398 Mar, [facility] [place] [facility] [address] [id number] [place] [address]- 5077 Mar, [facility] [place] [facility] [address] [id number] [place] [address]- 3561 Mar, [facility] [place] [facility] [address] [id number] [place] [address] 9630 Feb, [facility] [place] [facility] [address] [id number] [place] [address]- 7465 Feb, [facility] [place] [facility] [address] [id number] [place] [address]- 269[address] Feb, [facility] [place] [facility] [address] [id number] [place] [address]- 2260 Jan, [facility] [place] [facility] [address] [id number] [place] [address]- 4701 Jan, [facility] [place] [facility] [address] [id number] [place] [address]- 1258 Jan, [facility] [place] [facility] [address] [id number] [place] [address] 9405 Dec, [facility] [place] [facility] [address] [id number] [place] [address]- 2615 Dec, [facility] [place] [facility] [address] [id number] [place] [address]- 4620 Nov, [facility] [place] [facility] [address] [id number] [place] [address]- 1403 Oct, [facility] [place] [facility] [address] [facility] [id number] [place] [address]- [address] Oct, [facility] [address] [facility] [id number] [place] [address] 68[address] Oct, [facility] [address] [facility] [id number] [place] [address]- 3986 Sep, [facility] [address] [facility] [id number] [place] [address]- [address]576 Apr, [facility] [address] [facility] [id number] [place] [address] 76[address] Feb, [facility] [address] [facility] [id number] [place] [address]- [address]843 Jan, IMMUNIZATIONS No Known Immunizations SOCIAL HISTORY Never Assessed REASON FOR VISIT PALS IN-[employer] PLAN OF CARE VITAL SIGNS MEDICATIONS Unknown [...] 2/2 Benzos OD, pneumonia MRSA, MAYRA, Hypokalemia-- [facility] 12/20/2015 Hospitalization History COPD exacerbation, Asthma-[facility] 09/21/16 Hospitalization History COPD-[facility] 12/30/2016 [facility] so[facility] Hospitalization History for COPD x2 Mar 2017 Hospitalization History Upper GI bleed at apr 2017 Hospitalization History [facility]- COPD Exacerbation, diarrhea 05/23/2017 Hospitalization History COPD exacerbation-[facility] 06/13/17
[2017-08-23 20:57] LABS: ABG OXYGEN SATURATION 100 % (94-100); ABG PCO2 37 MMHG (35-45); ABG PH 7.42 (7.37-7.43); ABG PO2 158 MMHG (79-93); ABG TCO2 25.2 MMOL/L (21.0-31.0); ALLENS TEST YES-POS
[2017-08-23 20:58] LABS: BASOPHILS % (AUTO) 0 % (0-10); EOSINOPHILS # (AUTO) 0.1 10^3/uL (0.0-0.3); EOSINOPHILS % (AUTO) 1 % (0-10); HEMATOCRIT 37 % (35-52); HEMOGLOBIN 11.7 G/DL (11.5-16.0); INSPIRED O2 10L; LYMPHOCYTES # (AUTO) 1.9 X 10^3 (1.0-4.0); LYMPHOCYTES % (AUTO) 18 % (12-44); MEAN CORPUSCULAR HEMOGLOBIN 24 PG (25-34); MEAN CORPUSCULAR HGB CONC 32 G/DL (32-36); MEAN CORPUSCULAR VOLUME 77 FL (80-99); MEAN PLATELET VOLUME 10.4 FL (7.4-10.4); MONOCYTES # (AUTO) 0.9 X 10^3 (0.0-1.0); MONOCYTES % (AUTO) 8 % (0-12); NEUTROPHILS # (AUTO) 7.7 X 10^3 (1.8-7.8); NEUTROPHILS % (AUTO) 73 % (42-75); PATIENT TEMP 97.5; PLATELET COUNT 364 10^3/uL (130-400); RED BLOOD COUNT 4.82 10^6/uL (4.35-5.85); RED CELL DISTRIBUTION WIDTH 17.3 % (10.0-14.5); VENTILATOR NO; WHITE BLOOD COUNT 10.6 10^3/uL (4.3-11.0)
--- OUTSIDE RECORDS SUMMARY | 2017-08-23 20:59 | XMS REPORT ---
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 Active Problem Thrush B37.0 Active 94711001 Problem TMJ (sprain of temporomandibular joint) S03.4XXA Active 63087412 Problem Tobacco abuse Z72.0 Active 92030135 Problem Non morbid obesity due to excess calories E66.09 Active 972217446 Problem Migraine G43.909 Active 81982069 Problem History of MRSA infection Z86.14 Active 482920965 Problem Knee pain, left M25.562 Active 86840642 Problem Obesity, unspecified obesity severity, unspecified obesity type E66.9 Active 081232619 Problem Migraine without aura and without status migrainosus, not intractable G43.009 Active 062474917 Problem Other emphysema J43.8 Active 32659300 Problem Chronic obstructive pulmonary disease with acute exacerbation J44.1 Active 994980682 Problem Intractable cyclical vomiting with nausea G43.A1 Active 04788143 Problem Chronic constipation K59.09 Active 978798481 Problem Acute bronchitis with COPD J44.0 Active [id number] Problem Encounter for tobacco use cessation counseling Z71.6 Active 428365906 Problem Methamphetamine use disorder, moderate, 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 Active 09986493 Problem Chronic bronchitis, unspecified chronic bronchitis type J42 Active 03105638 Problem Viral illness B34.9 Active 22764084 Problem Diabetes E11.9 Active 364879584 Problem Memory loss R41.3 Active 28220587 Problem Left knee pain M25.562 Active 79406253 Problem Dry mouth R68.2 Active 12221128 Problem Yeast vaginitis B37.3 Active 32924850 Problem Generalized anxiety disorder F41.1 Active 63613637 Problem Bipolar disorder with depression F31.30 Active 36676753 Problem Bipolar disorder, unspecified F31.9 Active 53405401 Problem Bipolar disorder, current episode depressed, severe, without psychotic features F31.4 Active 71013090 ALLERGIES No Information ENCOUNTERS Encounter Location Date Diagnosis [facility] [id number] [place] [address] 03661- 2148 Aug, [facility] [address] 35820- 9721 July, [facility] [id number] [place] [address] 02421- 5536 July, [facility] [address] 67585- 9364 July, Diabetes E11.9 and Chronic obstructive pulmonary disease with acute exacerbation J44.1 [facility] [id number] [place] [address] 07819- 1417 Jun, Chronic obstructive pulmonary disease with acute exacerbation J44.1 ; Diabetes E11.9 and Tobacco abuse Z72.0 [facility] [id number] [place] [address] 67170- 7926 Jun, [facility] [id number] [place] [address] 10578- 6268 Jun, [facility] [id number] [place] [address] 05936- 9079 May, [facility] [address] 57766- 1146 May, [facility] [id number] [place] [address] 13509 -6946 May, [facility] [id number] [place] [address] 87270- 7916 16 May, 2017 [facility] [id number] [place] [address] 45880- 3572 15 May, 2017 [facility] [id number] [place] [address] 58048- 4368 14 May, 2017 Diarrhea, unspecified type R19.7 and Intractable cyclical vomiting with nausea G43.A1 [place] [address] 31960- 3617 12 May, 2017 [facility] [id number] [place] [address] 68415- 6631 05 May, 2017 [place] [address] 17462- 3470 28 Apr, 2017 COPD exacerbation J44.1 ; Esophageal candidiasis B37.81 ; Other acute gastritis with hemorrhage K29.01 and Acute posthemorrhagic anemia D62 [place] [address] 07513- 2605 Apr, Viral illness B34.9 and COPD exacerbation J44.1 [facility] [address] [place] [place] [id number] [place] [address] 46504 -3507 Apr, Shortness of breath R06.02 and Pneumonia of both lower lobes due to infectious organism J18.9 [facility] [place] [id number] [place] [address] 24260 -7611 Mar, COPD with acute exacerbation J44.1 [facility] [id number] [place] [address] 82286- 6381 Mar, Chronic obstructive pulmonary disease with acute exacerbation J44.1 and Diabetes E11.9 [place] [address] 40523- 8334 Mar, [place] [id number] [place] [address] 60319- 0253 Mar, [facility] [address] 04060 -9353 Mar, COPD exacerbation J44.1 [facility] [id number] [place] [address] 96637- 5365 Mar, [facility] [id number] [place] [address] 2778 Mar, Migraine G43.909 ; Hypokalemia E87.6 and Type 2 diabetes mellitus without complications E11.9 [facility] [id number] [place] [address] 50986- 5451 Feb, [facility] [id number] [place] [address] 36681- 5610 Feb, [facility] [id number] [place] [address] 96649- 6293 Feb, Methamphetamine use disorder, moderate, 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 ; Major depressive disorder, recurrent, moderate F33.1 ; Anxiety disorder, unspecified F41.9 and Tobacco abuse Z72.0 [facility] [id number] [place] [address] 78615- 8867 Jan, Major depressive disorder, recurrent, moderate F33.1 [place] [id number] [place] [address] 95991- 1816 Jan, [place] [id number] [place] [address] 89652- 0660 Jan, [place] [id number] [place] [address] 46474- 6709 Jan, Major depressive disorder, recurrent, moderate F33.1 [place] [address] [place] [address] 31017- 9789 Jan, Major depressive disorder, recurrent, moderate F33.1 ; Anxiety disorder, unspecified F41.9 ; Methamphetamine use disorder, moderate, 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 and Tobacco abuse Z72.0 [place] [id number] [place] [address] 53874- 5229 Jan, [place] [address] [address] 2690 Jan, Chronic obstructive pulmonary disease with acute exacerbation J44.1 and Diabetes E11.9 [facility] [id number] [place] [address] 70356- 3737 Jan, [facility] [id number] [place] [address] 89571- 6747 Jan, [facility] [id number] [place] [address] 15886- 4837 Dec, Acute respiratory failure with hypoxia J96.01 ; Chronic bronchitis, unspecified chronic bronchitis type J42 and Tobacco use Z72.0 [facility] [id number] [place] [address] 21311- 2566 Dec, [facility] [id number] [place] [address] [phone] Nov, Dental caries K02.9 and Dental examination Z01.20 [facility] [address] [place] [address] 69924- 6094 Nov, Major depressive disorder, recurrent, moderate F33.1 ; Anxiety disorder, unspecified F41.9 and 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 [facility] [address] [place] [address] [phone] Oct, Dental examination Z01.20 [facility] [id number] [place] [address] 04987- 8293 Oct, [facility] [address] [place] [address] 57972- 1718 Oct, Diabetes E11.9 and Thrush B37.0 [facility] [id number] [place] [address] 03639- 4440 Oct, [facility] [id number] [place] [address] 12618- 3351 Oct, [facility] [id number] [place] [address] 32678- 9108 Oct, [facility] [address] [place] [address] 88352- 9389 Sep, Major depressive disorder, recurrent, moderate F33.1 ; Anxiety disorder, unspecified F41.9 and Bipolar disorder, unspecified F31.9 [facility] [address] [address]- 1316 Sep, Acute exacerbation of chronic obstructive pulmonary disease (COPD) J44.1 and Migraine G43.909 [facility] [id number] [place] [address] 11633- 6765 Sep, [facility] [id number] [place] [address] [phone] Sep, [facility] [id number] [place] [address] 86018- 0548 Sep, Acute exacerbation of chronic obstructive pulmonary disease (COPD) J44.1 [facility] [address] [place] [address] 18961 -9448 Sep, Acute exacerbation of chronic obstructive pulmonary disease (COPD) J44.1 [facility] [id number] [place] [address] 57784- 9448 Aug, [facility] [id number] [place] [address] 19069- 5337 Aug, Major depressive disorder, recurrent, moderate F33.1 ; Anxiety disorder, unspecified F41.9 and 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 [facility] [address] [place] [address] 49838- 9977 Aug, Wheezing R06.2 ; Non morbid obesity due to excess calories E66.09 ; Migraine without aura and without status migrainosus, not intractable G43.009 and Tobacco abuse Z72.0 [facility] [address] [id number] 14 Aug, 2016 Encounter for dental examination Z01.20 [facility] [address] [address]- 6562 Aug, Major depressive disorder, recurrent, moderate F33.1 ; Anxiety disorder, unspecified F41.9 and 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 [facility] [address] [address]- 8549 July, [facility] [id number] [place] [address] 23642- 6123 July, [facility] [address] [place] [address] 32503- 7448 July, [facility] [id number] [place] [address] 59847- 7404 July, Diabetes E11.9 [facility] [address] [place] [address] 50109- 3427 Jun, Major depressive disorder, recurrent, moderate F33.1 [facility] [address] [place] [address] 06154- 3967 Jun, Major depressive disorder, recurrent, moderate F33.1 ; 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 ; Generalized anxiety disorder F41.1 and Bipolar disorder, unspecified F31.9 [facility] [address] [place] [address] 98489- 0493 Jun, Diabetes E11.9 ; Migraine G43.909 ; Thrush B37.0 and Wheezing R06.2 [facility] [address] [id number] Jun, Dental examination Z01.20 [facility] [address] [place] [address] 98443- 9317 Jun, [facility] [address] [address]- 1903 Jun, Major depressive disorder, recurrent, moderate F33.1 ; Anxiety disorder, unspecified F41.9 and 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 [facility] [address] [place] [address] 07575- 1455 Jun, [place] [id number] [place] [address] 56088- 1046 Jun, Wheezing R06.2 [facility] [id number] [place] [address] [phone] Jun, Dental caries K02.9 [place] [id number] [place] [address] 50186- 0499 Jun, Major depressive disorder, recurrent, moderate F33.1 ; Anxiety disorder, unspecified F41.9 and 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 [place] [id number] [place] [address] 83635- 5521 Jun, RLQ abdominal pain R10.31 ; Diabetes E11.9 ; Obesity, unspecified obesity severity, unspecified obesity type E66.9 ; Wheezing R06.2 and Abnormal urinalysis R82.90 [place] [id number] [place] [address] 16870- 3319 May, [place] [id number] [place] [address] 07343- 2396 May, Well woman exam Z01.419 ; Breast cancer screening Z12.39 ; Cervical cancer screening Z12.4 ; Urinary frequency R35.0 ; Edema, unspecified type R60.9 and Chronic constipation K59.09 [place] [id number] [place] [address] 37070- 6158 May, Major depressive disorder, recurrent, moderate F33.1 ; Anxiety disorder, unspecified F41.9 and 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 [facility] [id number] [place] [address] [phone] May, Dental examination Z01.20 [place] [id number] [place] [address] 24963- 5898 May, [facility] [address], [place] [address]- 6861 May, [facility] [id number] [place] [address] 01994- 9351 May, Chronic constipation K59.09 [facility] [address] [place] [address] 66162- 5917 Apr, [place] [id number] [place] [address] 53648- 8139 Apr, Major depressive disorder, recurrent, moderate F33.1 ; Anxiety disorder, unspecified F41.9 and 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 [place] [id number] [place] [address] 32581- 4579 Apr, [place] [facility] [id number] [place] [address] 89332- 5309 Mar, Major depressive disorder, recurrent, moderate F33.1 [facility] [facility] [id number] [place] [address] 47589- 4938 Mar, Major depressive disorder, recurrent, moderate F33.1 ; Generalized anxiety disorder F41.1 and Bipolar I disorder, most recent episode depressed with anxious distress F31.30 [place] [address] [place] [address] 02289- 7637 Mar, Diabetes E11.9 ; Non morbid obesity due to excess calories E66.09 ; Breast cancer screening Z12.39 and Encounter for immunization Z23 [place] [id number] [place] [address] 65375- 1488 Mar, Major depressive disorder, recurrent, moderate F33.1 ; Anxiety disorder, unspecified F41.9 and 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 [place] [address] [place] [address] 83014- 0091 Mar, [place] [id number] [place] [address] 34877- 3083 Feb, Major depressive disorder, recurrent, moderate F33.1 ; Anxiety disorder, unspecified F41.9 and 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 [facility] [address] [place] [address] 78027- 5295 Feb, [facility] [id number] [place] [address] 44240- 3279 Feb, [facility] [id number] [place] [address] 83594- 3735 Jan, Major depressive disorder, recurrent, moderate F33.1 ; Generalized anxiety disorder F41.1 and Bipolar disorder, current episode depressed, severe, without psychotic features F31.4 [place] [address] [place] [address] 66883- 9599 Jan, Major depressive disorder, recurrent, moderate F33.1 ; Anxiety disorder, unspecified F41.9 and 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 [place] [address] [place] [address] 96789- 7181 16 Jan, 2016 Bronchitis J40 [place] [id number] [place] [address] 54715- 3020 Jan, [place] [address] [place] [address] 93538- 2539 Jan, [facility] [facility] [id number] [place] [address] 16278- 1241 Jan, Elbow injury, right, initial encounter S59.901A ; Multiple contusions T14.8 and Cervical strain, acute, initial encounter S16.1XXA [place] [id number] [place] [address] 77816- 6749 Dec, Major depressive disorder, recurrent, moderate F33.1 ; Generalized anxiety disorder F41.1 and Bipolar disorder with depression F31.30 [place] [id number] [place] [address] 06641- 0054 Dec, [facility] [address], [place] [address]- 0478 Dec, [facility] [address], [place] [address]- 2722 Dec, [facility] [address] [place] [address] 52762- 8081 Dec, [facility] [address] [place] [address] 61436- 4121 Dec, Yeast infection B37.9 [place] [address] [place] [address] 07614- 5609 Dec, Pneumonia of both lungs due to methicillin resistant Staphylococcus aureus (MRSA), unspecified part of lung J15.212 and Benzodiazepine overdose, accidental or unintentional, subsequent encounter T42.4X1D [place] [address] [place] [address] 62559- 4354 Dec, [facility] [address] [place] [address] 86399- 4141 Dec, [place] [address] [place] [address] 30726- 7783 Dec, Knee pain, left M25.562 and Edema, unspecified type R60.9 [place] [address], [place] [address]- 0506 Dec, [facility] [address] [place] [address] 70996- 9294 Dec, Anxiety disorder, unspecified F41.9 and Bipolar disorder, unspecified F31.9 [place] [address] [place] [address] 82319- 2164 Nov, Major depressive disorder, recurrent, moderate F33.1 ; Anxiety disorder, unspecified F41.9 and 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 [facility] [address] [place] [address] 20295- 7910 Nov, [place] [address] [place] [address] 04769- 1051 Nov, Migraine without aura and without status migrainosus, not intractable G43.009 [place] [address] [place] [address] 61253- 3799 Nov, Migraine G43.909 [facility] [id number] [place] [address] 06904- 3135 Nov, [facility] [id number] [place] [address] 44680- 2573 Nov, Major depressive disorder, recurrent, moderate F33.1 ; Anxiety disorder, unspecified F41.9 and 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 [facility] [id number] [place] [address] 10867- 4469 Oct, Chronic constipation K59.09 and Obesity, unspecified obesity severity, unspecified obesity type E66.9 [facility] [id number] [place] [address] 40002- 5046 Oct, Obesity, unspecified obesity severity, unspecified obesity type E66.9 ; Chronic constipation K59.09 and Anxiety disorder, unspecified F41.9 [place] [address] [place] [address] 11101- 8498 Oct, [place] [id number] [place] [address] 23967- 1528 Sep, Diabetes E11.9 ; Edema, unspecified type R60.9 ; Varicose vein of leg I83.90 and Obesity, unspecified obesity severity, unspecified obesity type E66.9 [place] [id number] [place] [address] 98884- 2916 Sep, Edema, unspecified type R60.9 ; Diabetes E11.9 and Knee pain , left M25.562 [facility] [id number] [place] [address] 89728- 3786 Sep, [facility] [address] [place] [address] 97659- 7465 Sep, [facility] [id number] [place] [address] 26930- 9900 Sep, Major depressive disorder, recurrent, moderate F33.1 ; Generalized anxiety disorder F41.1 and Bipolar disorder, unspecified F31.9 [facility] [id number] [place] [address] 65558- 0281 Aug, Chondromalacia of left knee M94.262 [facility] [id number] [place] [address] 91049- 1850 Aug, Major depressive disorder, recurrent, moderate F33.1 ; Anxiety disorder, unspecified F41.9 and 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 [facility] [id number] [place] [address] 48545- 8590 Aug, [facility] [id number] [place] [address] 31388- 4198 Aug, Osteoarthritis of left knee M17.9 [facility] [id number] [place] [address] 51534- 1622 Aug, [facility] [id number] [place] [address] 18691- 9121 July, Major depressive disorder, recurrent, moderate F33.1 ; Anxiety disorder, unspecified F41.9 and 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 [facility] [address] [place] [address] 21295- 5459 July, [facility] [id number] [place] [address] 70533- 4056 July, Chronic constipation K59.09 [facility] [id number] [place] [address] [phone] Jun, [facility] [id number] [place] [address] [phone] 15 Jun, 2015 [place] [id number] [place] [address] [phone] 14 Jun, 2015 Osteoarthritis of left knee M17.9 [facility] [id number] [place] [address] [phone] Jun, [place] [address] [phone] Jun, Generalized anxiety disorder F41.1 ; Bipolar disorder, unspecified F31.9 and Major depressive disorder, recurrent, moderate F33.1 [place] [address] 7[address]28- 2615 Jun, Migraine G43.909 [place] [address] [place] [id number] [place] [address] 69195- 7477 07 Jun, 2015 Left knee pain M25.562 ; Chronic constipation K59.09 ; Dry mouth R68.2 ; Yeast vaginitis B37.3 and Memory loss R41.3 [place] [id number] [place] [address] 93909- 0710 Jun, [place] [id number] [place] [address] 27482- 0131 30 May, 2015 [place] [id number] [place] [address] 46997- 6944 May, [place] [id number] [place] [address] 15215- 4117 May, [place] [id number] [place] [address] 10893- 2370 May, [place] [id number] [place] [address] 24839- 9715 May, Acute bronchitis with COPD J44.0 ; Knee pain, left M25.562 and Encounter for tobacco use cessation counseling Z71.6 [place] [id number] [place] [address] 60049- 7630 May, [facility] [id number] [place] [address] 74519- 6382 Apr, Diabetes E11.9 ; TMJ (sprain of temporomandibular joint) S03.4XXA ; Tobacco abuse Z72.0 ; Migraine G43.909 and Anxiety F41.9 [facility] [id number] [place] [address] 61097- 3406 Apr, Generalized anxiety disorder F41.1 and Bipolar disorder, unspecified F31.9 [facility] [id number] [place] [address] 15074- 8513 Apr, Major depressive disorder, recurrent, moderate F33.1 ; Anxiety disorder, unspecified F41.9 and 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 [facility] [address] [place] [id number] [place] [address] 63164- 8160 Apr, [facility] [id number] [place] [address] 29121- 3717 Mar, [facility] [address] 14990- 5807 Feb, [facility] [id number] [place] [address] 47940- 0460 14 Feb, 2015 Major depressive disorder, recurrent, moderate F33.1 ; Anxiety disorder, unspecified F41.9 and 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 [facility] [id number] [place] [address] 77046- 3937 Feb, [facility] [id number] [place] [address] 72323- 1116 Feb, Generalized anxiety disorder F41.1 and Bipolar disorder, unspecified F31.9 [facility] [id number] [place] [address] 10641- 0990 Jan, [facility] [address] [place] [address]- 6894 Jan, [facility] [id number] [place] [address] 67187- 8327 Jan, Bipolar disorder, unspecified F31.9 and Generalized anxiety disorder F41.1 [facility] [id number] [place] [address] 98921- 2429 Dec, [facility] [address] 93690- 2724 Dec, Bipolar disorder, unspecified F31.9 and Generalized anxiety disorder F41.1 [facility] [address] 54600- 1242 Dec, Generalized anxiety disorder F41.1 and Major depressive disorder, recurrent, moderate F33.1 [facility] [address] [id number] [place] [address] 57547- 6020 Oct, Headache 784.0 ; Cough 786.2 ; Vomiting and diarrhea 787.03 and Dysuria 788.1 [facility] [address] [id number] [place] [address] 41456- 1997 Aug, [facility] [address] 46230- 4994 Aug, Headache 784.0 and Shortness of breath 786.05 [facility] [address] [id number] [place] [address] 70087- 4462 Aug, [facility] [address] 05582- 0942 Aug, Migraine 346.90 [facility] [address] [place] [id number] [place] [address] 47386- 6116 Jun, [facility] [address] 76872- 1742 Jun, [facility] [address] [id number] [place] [address] 71672- 2491 May, [facility] [place] [facility] [address] [id number] [place] [address]- 8228 May, [facility] [place] [facility] [address] [id number] [place] [address]- 8401 May, [facility] [place] [facility] [address] [id number] [place] [address]- 5727 May, [facility] [place] [facility] [address] [id number] [place] [address]- 1950 May, [facility] [place] [facility] [address] [id number] [place] [address]- 3680 May, [facility] [place] [facility] [address] [id number] [place] [address]- 7191 Apr, [facility] [place] [facility] [address] [id number] [place] [address]- 6473 Apr, [facility] [place] [facility] [address] [id number] [place] [address]- 3361 Apr, [facility] [place] [facility] [address] [id number] [place] [address]- 2619 Apr, [facility] [place] [facility] [address] [id number] [place] [address]- 0714 Apr, [facility] [place] [facility] [address] [id number] [place] [address]- 1467 Mar, [facility] [place] [facility] [address] [id number] [place] [address]- 0665 Mar, [facility] [place] [facility] [address] [id number] [place] [address]- 1133 Mar, [facility] [place] [facility] [address] [id number] [place] [address]- 8037 Mar, [facility] [place] [facility] [address] [id number] [place] [address]- 4118 Feb, [facility] [place] [facility] [address] [id number] [place] [address]- 4970 Feb, [facility] [place] [facility] [address] [id number] [place] [address]- 6216 Feb, [facility] [place] [facility] [address] [id number] [place] 0357 Feb, [facility] [place] [facility] [address] [id number] [place] [address]- 8496 Feb, [facility] [place] [facility] [address] [id number] [place] [address]- 9704 Feb, [facility] [place] [facility] [address] [id number] [place] [address]- 8857 Feb, [facility] [place] [facility] [address] [id number] [place] [address]- 2671 Feb, [facility] [place] [facility] [address] [id number] [place] [address]- 6134 Feb, [facility] [place] [facility] [address] [id number] [place] [address]- 6375 Feb, [facility] [place] [facility] [address] [id number] [place] [address]- 9519 Feb, [facility] [place] [facility] [address] [id number] [place] [address]- 3114 Feb, [facility] [place] [facility] [address] [id number] [place] [address]- 7846 Jan, [facility] [place] [facility] [address] [id number] [place] [address]- 1326 10 Jan, 2014 [facility] [place] [facility] [address] [id number] [place] [address]- 5529 10 Dec, 2013 [facility] [place] [facility] [address] [id number] [place] [address]- 9186 Dec, [facility] [place] [facility] [address] [id number] [place] [address]- 7988 Dec, [facility] [place] [facility] [address] [id number] [place] [address]- 9676 Dec, [facility] [place] [facility] [address] [id number] [place] [address]- 9856 Dec, [facility] [place] [facility] [address] [id number] [place] [address]- 4816 Dec, [facility] [place] [facility] [address] [id number] [place] [address]- 1744 Sep, [facility] [place] [facility] [address] [id number] [place] [address]- 3616 Sep, [facility] [place] [facility] [address] [id number] [place] [address]- 8371 Sep, [facility] [place] [facility] [address] [id number] [place] [address]- 5005 Sep, [facility] [place] [facility] [address] [id number] [place] [address]- 0946 Sep, [facility] [place] [facility] [address] [id number] [place] [address]- 1341 Sep, [facility] [place] [facility] [address] [id number] [place] [address]- 8703 Sep, [facility] [place] [facility] [address] [id number] [place] [address]- 2101 Sep, [facility] [place] [facility] [address] [id number] [place] [address]- 9334 Sep, [facility] [place] [facility] [address] [id number] [place] [address]- 9012 Sep, [facility] [place] [facility] [address] [id number] [place] [address]- 5001 Aug, [facility] [place] [facility] [address] [id number] [place] [address]- 2685 Aug, [facility] [place] [facility] [address] [id number] [place] 8384 Aug, [facility] [place] [facility] [address] [id number] [place] [address]- 8546 Aug, [facility] [place] [facility] [address] [id number] [place] [address]- 7373 Aug, [facility] [place] [facility] [address] [id number] [place] [address]- 2607 Aug, [facility] [place] [facility] [address] [id number] [place] [address]- 0974 Aug, [facility] [place] [facility] [address] [id number] [place] [address]- 8165 Aug, [facility] [place] [facility] [address] [id number] [place] [address]- 8703 Aug, [facility] [place] [facility] [address] [id number] [place] [address]- 6398 Aug, [facility] [place] [facility] [address] [id number] [place] [address]- 5130 Aug, [facility] [place] [facility] [address] [id number] [place] [address]- 7584 Aug, [facility] [place] [facility] [address] [id number] [place] [address]- 7932 Aug, [facility] [place] [facility] [address] [id number] [place] [address]- 2347 July, [facility] [place] [facility] [address] [id number] [place] [address]- 0206 July, [facility] [place] [facility] [address] [id number] [place] [address]- 4698 July, [facility] [place] [facility] [address] [id number] [place] [address]- 4566 July, [facility] [place] [facility] [address] [id number] [place] [address]- 0257 July, [facility] [place] [facility] [address] [id number] [place] [address]- 1665 July, [facility] [place] [facility] [address] [id number] [place] [address]- 4292 July, [facility] [place] [facility] [address] [id number] [place] [address]- 7266 Jun, [facility] [place] [facility] [address] [id number] [place] [address]- 2327 Jun, [facility] [place] [facility] [address] [id number] [place] [address]- 9810 18 Jun, 2013 [facility] [place] [facility] [address] [id number] [place] [address]- 5104 Jun, [facility] [place] [facility] [address] [id number] [place] [address]- 3984 Jun, [facility] [place] [facility] [address] [id number] [place] [address]- 0468 Jun, [facility] [place] [facility] [address] [id number] [place] [address]- 9319 Jun, [facility] [place] [facility] [address] [id number] [place] [address]- 7690 17 May, 2013 [facility] [place] [facility] [address] [id number] [place] [address]- 7952 17 May, 2013 [facility] [place] [facility] [address] [id number] [place] [address]- 3523 14 May, 2013 [facility] [place] [facility] [address] [id number] [place] [address]- 0826 14 May, 2013 [facility] [place] [facility] [address] [id number] [place] [address]- 4655 13 May, 2013 [facility] [place] [facility] [address] [id number] [place] [address]- 2778 13 May, 2013 [facility] [place] [facility] [address] [id number] [place] [address]- 8363 10 May, 2013 [facility] [place] [facility] [address] [id number] [place] [address]- 9669 May, [facility] [place] [facility] [address] [id number] [place] [address]- 3107 May, [facility] [place] [facility] [address] [id number] [place] [address]- 9998 Apr, [facility] [place] [facility] [address] [id number] [place] [address]- 3633 Apr, [facility] [place] [facility] [address] [id number] [place] [address]- 2264 Apr, [facility] [place] [facility] [address] [id number] [place] [address]- 5876 Apr, [facility] [place] [facility] [address] [id number] [place] [address]- 5633 Apr, [facility] [place] [facility] [address] [id number] [place] [address]- 0443 Apr, [facility] [place] [facility] [address] [id number] [place] [address]- 8299 Apr, [facility] [place] [facility] [address] [id number] [place] [address]- 9627 Apr, [facility] [place] [facility] [address] [id number] [place] [address]- 3769 Apr, [facility] [place] [facility] [address] [id number] [place] [address]- 8888 Apr, [facility] [place] [facility] [address] [id number] [place] [address]- 3098 Mar, [facility] [place] [facility] [address] [id number] [place] [address]- 3489 Mar, [facility] [place] [facility] [address] [id number] [place] [address]- 7233 Mar, [facility] [place] [facility] [address] [id number] [place] [address]- 3724 09 Mar, 2013 [facility] [address] [id number] [place] [address]- 3828 Mar, [facility] [place] [facility] [address] [id number] [place] [address]- 1196 Mar, [facility] [place] [facility] [address] [id number] [place] [address]- 9630 Mar, [facility] [place] [facility] [address] [id number] [place] [address]- 5701 Mar, [facility] [place] [facility] [address] [id number] [place] [address]- 9693 Feb, [facility] [place] [facility] [address] [id number] [place] [address]- 4129 Feb, [facility] [place] [facility] [address] [id number] [place] [address]- 3407 Jan, [facility] [place] [facility] [address] [id number] [place] [address]- 1694 18 Jan, 2013 [facility] [place] [facility] [address] [id number] [place] [address]- 2183 Jan, [facility] [place] [facility] [address] [id number] [place] [address]- 8114 15 Jan, 2013 [facility] [place] [facility] [address] [id number] [place] [address]- 1447 Jan, [facility] [place] [facility] [address] [id number] [place] [address]- 9362 12 Jan, 2013 [facility] [place] [facility] [address] [id number] [place] [address]- 0675 05 Jan, 2013 [facility] [place] [facility] [address] [id number] [place] [address]- 8423 05 Jan, 2013 [facility] [place] [facility] [address] [id number] [address]- 6921 13 Dec, 2012 [facility] [place] [facility] [address] [id number] [place] [address]- 4285 Dec, [facility] [place] [facility] [address] [id number] [place] [address]- 0180 10 Dec, 2012 [facility] [place] [facility] [address] [id number] [place] [address]- 5715 20 Nov, 2012 [facility] [place] [facility] [address] [id number] [place] [address]- 6826 13 Nov, 2012 [facility] [place] [facility] [address] [id number] [place] [address]- 3844 12 Nov, 2012 [facility] [place] [facility] [address] [id number] [place] [address]- 7787 09 Nov, 2012 [facility] [place] [facility] [address] [id number] [place] [address]- 5726 Nov, [facility] [place] [facility] [address] [id number] [place] [address]- 5531 Nov, [facility] [place] [facility] [address] [id number] [place] [address]- 7238 Oct, [facility] [place] [facility] [address] [id number] [place] [address]- 2009 Oct, [facility] [place] [facility] [address] [id number] [place] [address]- 2458 Sep, [facility] [place] [facility] [address] [id number] [place] [address]- 8788 Sep, [facility] [place] [facility] [address] [id number] [place] [address]- 6338 Sep, [facility] [place] [facility] [address] [id number] [place] [address]- 9737 Sep, [facility] [place] [facility] [address] [id number] [place] [address]- 2992 Sep, [facility] [place] [facility] [address] [id number] [place] [address]- 7316 Sep, [facility] [address] [id number] [place] [address]- 8440 Sep, [facility] [place] [facility] [address] [id number] [place] [address]- 0437 Aug, [facility] [place] [facility] [address] [id number] [place] [address]- 4926 Aug, [facility] [place] [facility] [address] [id number] [place] [address]- 0101 Aug, [facility] [place] [facility] [address] [id number] [place] [address]- 1451 Aug, [facility] [place] [facility] [address] [id number] [place] [address]- 3488 Aug, [facility] [place] [facility] [address] [id number] [place] [address]- 8521 Aug, [facility] [place] [facility] [address] [id number] [place] [address]- 5768 July, [facility] [place] [facility] [address] [id number] [place] [address]- 2764 July, [facility] [place] [facility] [address] [id number] [place] [address]- 9119 July, [facility] [place] [facility] [address] [id number] [place] [address]- 2660 July, [facility] [place] [facility] [address] [id number] [place] [address]- 0691 July, [facility] [place] [facility] [address] [id number] [place] [address]- 4821 July, [facility] [place] [facility] [address] [id number] [place] [address]- 6784 Jun, [facility] [place] [facility] [address] [id number] [place] [address]- 9058 Jun, [facility] [place] [facility] [address] [id number] [place] [address]- 5740 15 Jun, 2012 [facility] [address] [id number] [place] [address]- 7604 Jun, [facility] [place] [facility] [address] [id number] [place] [address]- 0436 Jun, [facility] [address] [id number] [place] [address]- 3734 Jun, [facility] [address] [id number] [place] [address]- 6978 Jun, [facility] [address] [id number] [place] [address]- 9764 May, [facility] [address] [id number] [place] [address]- 2756 May, [facility] [id number] [address]- 1498 26 Apr, 2012 [facility] [address] [id number] [place] [address]- 7149 Apr, [facility] [id number] [place] [address]- 7307 Apr, [facility] [id number] [place] [address]- 3478 18 Apr, 2012 [facility] [place] [facility] [id number] [place] [address]- 2693 Apr, [facility] [address] [id number] [place] [address]- 4467 08 Apr, 2012 [facility] [place] [facility] [address] [id number] [place] [address]- 4225 07 Apr, 2012 [facility] [place] [facility] [address] [id number] [place] [address]- 0982 07 Apr, 2012 [facility] [place] [facility] [id number] [place] [address]- 7674 Apr, [facility] [address] [id number] [place] [address] Apr, [facility] [address] [id number] [place] [address] Apr, [facility] [address] [id number] [place] [address] Mar, [facility] [address] [id number] [place] [address] Mar, [facility] [address] [id number] [place] [address] Mar, [facility] [address] [id number] [place] [address] Mar, [facility] [address] [id number] [place] [address] Mar, [facility] [address] [id number] [place] [address] Mar, [facility] [address] [id number] [place] [address] Mar, [facility] [address] [id number] [place] [address]098 Mar, [facility] [address] [id number], [place] [address] Mar, [facility] [address] [id number], [place] [address] Mar, [facility] [address] [id number], [place] [address] Mar, [facility] [place] [facility] [address] [id number], [place] [address] Mar, [facility] [address] [id number] [place] [address] 4199 Mar, [facility] [place] [facility] [address] [id number] [place] [address] Feb, [facility] [place] [facility] [address] [id number] [place] [address] Feb, [facility] [place] [facility] [address] [id number] [place] [address] Feb, [facility] [place] [facility] [address] [id number] [place] [address] Feb, [facility] [place] [facility] [address] [id number] [place] [address] Feb, [facility] [place] [facility] [address] [id number] [place] [address] Feb, [facility] [place] [facility] [address] [id number] [place] [address] Feb, [facility] [place] [facility] [address] [id number] [place] [address] 1771 Feb, [facility] [place] [facility] [address] [id number] [place] [address] Feb, [facility] [place] [facility] [address] [id number] [place] [address] 49[address] Feb, [facility] [place] [facility] [address] [id number] [place] [address] 4[address] Feb, [facility] [place] [facility] [address] [id number] [place] [address] 47[address] Feb, [facility] [place] [facility] [address] [id number] [place] [address] 2546 Feb, [facility] [place] [facility] [address] [id number] [place] [address] Feb, [facility] [place] [facility] [address] [id number] [place] [address] 7186 Feb, [facility] [place] [facility] [address] [id number] [place] [address] 68[address] Jan, [facility] [place] [facility] [address] [id number] [place] [address] 7493 Jan, [facility] [place] [facility] [address] [id number] [place] [address] Jan, [facility] [place] [facility] [address] [id number] [place] [address] Jan, [facility] [place] [facility] [address] [id number] [place] [address]- 5483 Dec, [facility] [place] [facility] [address] [id number] [place] [address] Dec, [facility] [place] [facility] [address] [id number] [place] [address] 6992 Dec, [facility] [place] [facility] [address] [id number] [place] [address] 8061 Dec, [facility] [place] [facility] [address] [id number], [place] [address] Dec, [facility] [place] [facility] [address] [id number], [place] [address] Dec, [facility] [place] [facility] [address] [id number], [place] [address]84 Dec, [facility] [place] [facility] [address] [id number], [place] [address]28 Dec, [facility] [place] [facility] [address] [id number], [place] [address] Dec, [facility] [place] [facility] [address] [id number], [place] [address]- [address]88 Dec, [facility] [place] [facility] [address] [id number], [place] [address]94 Dec, [facility] [place] [facility] [address] [id number], [place] [address] Nov, [facility] [place] [facility] [address] [id number] [place] [address] 24 Sep, 2011 [facility] [place] [facility] [address] [id number] [place] [address] 2546 20 Sep, 2011 [facility] [place] [facility] [address] [id number] [place] [address] 2546 19 Sep, 2011 [facility] [place] [facility] [address] [id number] [place] [address] 2546 17 Sep, 2011 [facility] [place] [facility] [address] [id number] [place] [address] 2546 16 Sep, 2011 [facility] [place] [facility] [address] [id number] [place] [address]- 7636 14 Sep, 2011 [facility] [place] [facility] [address] [id number] [place] [address] 2546 13 Sep, 2011 [facility] [place] [facility] [address] [id number] [place] [address]- 2004 12 Sep, 2011 [facility] [place] [facility] [address] [id number] [place] [address] 2545 07 Sep, 2011 [facility] [place] [facility] [address] [id number] [place] [address]- 8948 06 Sep, 2011 [facility] [place] [facility] [address] [id number] [place] [address] 2541 06 Sep, 2011 [facility] [place] [facility] [address] [id number] [place] [address] 2548 05 Sep, 2011 [facility] [place] [facility] [address] [id number] [place] [address] 2541 29 Oct, 2011 [facility] [place] [facility] [address] [id number] [place] [address] 2546 29 Oct, 2011 [facility] [place] [facility] [address] [id number] [place] [address]- [address] 28 Oct, 2011 [facility] [place] [facility] [address] [id number] [place] [address]402 28 Oct, 2011 [facility] [place] [facility] [address] [id number] [place] [address]- 0026 Oct, [facility] [place] [facility] [address] [id number] [place] [address]- 9386 Oct, [facility] [place] [facility] [address] [id number] [place] [address]- 3016 Oct, [facility] [place] [facility] [address] [address] [id number] [place] [address] Oct, [facility] [place] [facility] [address] [id number] [place] [address] Oct, [facility] [place] [facility] [address] [id number] [place] [address] Oct, [facility] [place] [facility] [address] [id number] [place] [address] Oct, [facility] [place] [facility] [address] [id number] [place] [address] Sep, [facility] [place] [facility] [address] [id number] [place] [address] Sep, [facility] [place] [facility] [address] [id number] [place] [address] Sep, [facility] [place] [facility] [address] [id number] [place] [address] Sep, [facility] [place] [facility] [address] [id number] [place] [address] Sep, [facility] [place] [facility] [address] [id number] [place] [address] Sep, [facility] [place] [facility] [address] [id number] [place] [address] Aug, [facility] [place] [facility] [address] [id number] [place] [address] July, [facility] [place] [facility] [address] [id number] [place] [address] July, [facility] [place] [facility] [address] [id number] [place] [address] Jun, [facility] [place] [facility] [address] [id number] [place] [address] Jun, [facility] [place] [facility] [address] [id number] [place] [address] Jun, [facility] [place] [facility] [address] [id number] [place] [address] Jun, [facility] [place] [facility] [address] [id number] [place] [address] Jun, [facility] [place] [facility] [address] [id number] [place] [address] Jun, [facility] [place] [facility] [address] [id number] [place] [address] Jun, [facility] [place] [facility] [address] [id number] [place] [address] Jun, [facility] [place] [facility] [address] [id number] [place] [address] Jun, [facility] [place] [facility] [address] [id number] [place] [address] Jun, [facility] [place] [facility] [address] [id number] [place] [address] Jun, [facility] [place] [facility] [address] [id number] [place] [address] May, [facility] [place] [facility] [address] [id number] [place] [address] 16 May, 2011 [facility] [place] [facility] [address] [id number] [place] [address] 14 May, 2011 [facility] [place] [facility] [address] [id number] [place] [address] 06 May, 2011 [facility] [place] [facility] [address] [id number] [place] [address] Apr, [facility] [place] [facility] [address] [id number] [place] [address] Apr, [facility] [place] [facility] [address] [id number] [place] [address] Apr, [facility] [place] [facility] [address] [id number] [place] [address] Apr, [facility] [place] [facility] [address] [id number] [place] [address] Apr, [facility] [place] [facility] [address] [id number] [place] [address] Apr, [facility] [place] [facility] [address] [id number] [place] [address] Apr, [facility] [place] [facility] [address] [id number] [place] [address] Apr, [facility] [place] [facility] [address] [id number] [place] [address] Mar, [facility] [place] [facility] [address] [id number] [place] [address] Mar, [facility] [place] [facility] [address] [id number] [place] [address] Mar, [facility] [place] [facility] [address] [id number] [place] [address] 25[address] 18 Mar, 2011 [facility] [place] [facility] [address] [id number] [place] [address] 17 Mar, 2011 [facility] [place] [facility] [address] [id number] [place] [address] 13 Mar, 2011 [facility] [place] [facility] [address] [id number] [place] [address] 12 Mar, 2011 [facility] [place] [facility] [address] [id number] [place] [address] Mar, [facility] [place] [facility] [address] [id number] [place] [address] Mar, [facility] [place] [facility] [address] [id number] [place] [address] Mar, [facility] [place] [facility] [address] [id number] [place] [address] Mar, [facility] [place] [facility] [address] [id number] [place] [address] Mar, [facility] [place] [facility] [address] [id number] [place] [address] Mar, [facility] [place] [facility] [address] [id number] [place] [address] Mar, [facility] [place] [facility] [address] [id number] [place] [address] Mar, [facility] [place] [facility] [address] [id number] [place] [address] Mar, [facility] [place] [facility] [address] [id number] [place] [address] Feb, [facility] [place] [facility] [address] [id number] [place] [address] Feb, [facility] [place] [facility] [address] [id number], [place] [address] Feb, [facility] [place] [facility] [address] [id number], [place] [address] Jan, [facility] [place] [facility] [address] [id number] [place] [address] Jan, [facility] [place] [facility] [address] [id number] [place] [address] Jan, [facility] [place] [facility] [address] [id number] [place] [address] Dec, [facility] [place] [facility] [address] [id number] [address] Dec, [facility] [address] [id number], [place] [address] Nov, [facility] [address] [id number], [place] [address] Oct, [facility] [address] [id number], [place] [address] Oct, [facility] [id number] [place] [address] Oct, [facility] [id number], [place] [address] Sep, [facility] [id number], [place] [address] Apr, [facility] [id number], [place] [address] Feb, [facility] [address] [id number], [place] [address] Jan, IMMUNIZATIONS No Known Immunizations SOCIAL HISTORY Never Assessed REASON FOR VISIT PALS-cymbalta PLAN OF CARE VITAL SIGNS MEDICATIONS Medication Instructions Dosage Frequency Start Date End Date Duration Status Cymbalta 60 mg Orally Once a day 2 capsule 24h Feb, 90 days Active RESULTS No Results PROCEDURES [...] 2/2 Benzos OD, pneumonia MRSA, [facility], Hypokalemia-- [facility] 12/20/2015 Hospitalization History COPD exacerbation, Asthma-[facility] 09/21/16 Hospitalization History COPD-[facility] 12/30/2016 Hospitalization History [facility] [place] [facility]-last around 2006 or so. Hospitalization History for COPD x2 Mar 2017 Hospitalization History Upper GI bleed at [facility] 2017 Hospitalization History [facility]- COPD Exacerbation, diarrhea 05/23/2017 Hospitalization History COPD exacerbation-[facility] 06/13/17
--- OUTSIDE RECORDS SUMMARY | 2017-08-23 21:02 | XMS REPORT ---
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 Active Problem Thrush B37.0 Active 84011351 Problem TMJ (sprain of temporomandibular joint) S03.4XXA Active 28246098 Problem Tobacco abuse Z72.0 Active 17380664 Problem Non morbid obesity due to excess calories E66.09 Active 785160237 Problem Migraine G43.909 Active 54553284 Problem History of MRSA infection Z86.14 Active 158872427 Problem Knee pain, left M25.562 Active 90619096 Problem Obesity, unspecified obesity severity, unspecified obesity type E66.9 Active 248409145 Problem Migraine without aura and without status migrainosus, not intractable G43.009 Active 309750580 Problem Other emphysema J43.8 Active 67043709 Problem Chronic obstructive pulmonary disease with acute exacerbation J44.1 Active 492026325 Problem Intractable cyclical vomiting with nausea G43.A1 Active 07837341 Problem Chronic constipation K59.09 Active 305938277 Problem Acute bronchitis with COPD J44.0 Active 249394635605882 Problem Encounter for tobacco use cessation counseling Z71.6 Active 199990041 Problem Methamphetamine use disorder, moderate, 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 Active 15566349 Problem Chronic bronchitis, unspecified chronic bronchitis type J42 Active 58790214 Problem Viral illness B34.9 Active 30053134 Problem Diabetes E11.9 Active 372151948 Problem Memory loss R41.3 Active 83789300 Problem Left knee pain M25.562 Active 39598939 Problem Dry mouth R68.2 Active 67283604 Problem Yeast vaginitis B37.3 Active 13540615 Problem Generalized anxiety disorder F41.1 Active 31361856 Problem Bipolar disorder with depression F31.30 Active 20345909 Problem Bipolar disorder, unspecified F31.9 Active 26429796 Problem Bipolar disorder, current episode depressed, severe, without psychotic features F31.4 Active 95285684 ALLERGIES No Information ENCOUNTERS Encounter Location Date Diagnosis [facility] [address] [address] Aug, [facility] [address] 69186- [address]68 Aug, [facility] [address] 08004- 3652 Aug, [facility] [address] [address]13- [address] July, [facility] [address] 44464- 4598 July, [facility] [address] 82154- 6673 July, Diabetes E11.9 and Chronic obstructive pulmonary disease with acute exacerbation J44.1 [facility] [id number] [place] [address] 60802- 6531 Jun, Chronic obstructive pulmonary disease with acute exacerbation J44.1 ; Diabetes E11.9 and Tobacco abuse Z72.0 [facility] [id number] [place] [address] 96186- 3185 Jun, [facility] [address] 8[address]30- 3400 Jun, [facility] [id number] [place] [address] 29338- 0352 May, [facility] [address] 35239- 0224 May, [facility] [id number] [place] [address] 26591 -7554 17 May, 2017 [facility] [id number] [place] [address] 92761- 1982 16 May, 2017 [facility] [id number] [place] [address] 34155- 7995 15 May, 2017 [facility] [address] 94323- 7145 14 May, 2017 Diarrhea, unspecified type R19.7 and Intractable cyclical vomiting with nausea G43.A1 [place] [address] 60235- 5763 12 May, 2017 [facility] [id number] [place] [address] 28394- 9623 05 May, 2017 [facility] [id number] [place] [address] 44161- 4098 28 Apr, 2017 COPD exacerbation J44.1 ; Esophageal candidiasis B37.81 ; Other acute gastritis with hemorrhage K29.01 and Acute posthemorrhagic anemia D62 [facility] [id number] [place] [address] 82447- 7825 Apr, Viral illness B34.9 and COPD exacerbation J44.1 [facility] [id number] [place] [address] 17044 -5291 Apr, Shortness of breath R06.02 and Pneumonia of both lower lobes due to infectious organism J18.9 [facility] [id number] [place] [address] 42696 -1302 Mar, COPD with acute exacerbation J44.1 [facility] [id number] [place] [address] 13443- 1595 Mar, Chronic obstructive pulmonary disease with acute exacerbation J44.1 and Diabetes E11.9 [facility] [id number] [place] [address] 14882- 6220 Mar, [facility] [address] [address] 8[address] Mar, [facility] [id number] [place] [address] 35141 -1067 Mar, COPD exacerbation J44.1 [facility] [id number] [place] [address] 01442- 2154 Mar, [facility] [id number] [place] [address] 69011- 9439 Mar, Migraine G43.909 ; Hypokalemia E87.6 and Type 2 diabetes mellitus without complications E11.9 [facility] [id number] [place] [address] 30181- 5381 Feb, [facility] [id number] [place] [address] 90781- 5613 Feb, [facility] [id number] [place] [address] 51037- 5288 Feb, Methamphetamine use disorder, moderate, 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 ; Major depressive disorder, recurrent, moderate F33.1 ; Anxiety disorder, unspecified F41.9 and Tobacco abuse Z72.0 [place] [address] [place] [address] 28479- 7944 30 Jan, 2017 Major depressive disorder, recurrent, moderate F33.1 [facility] [facility] [id number] [place] [address] 22453- 6118 16 Jan, 2017 [facility] [address] [place] [address] 15940- 6028 14 Jan, 2017 [facility] [facility] [id number] [place] [address] 00452- 3350 13 Jan, 2017 Major depressive disorder, recurrent, moderate F33.1 [facility] [address] [place] [address] 43345- 4807 Jan, Major depressive disorder, recurrent, moderate F33.1 ; Anxiety disorder, unspecified F41.9 ; Methamphetamine use disorder, moderate, 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 and Tobacco abuse Z72.0 [place] [address] 81815- 8847 Jan, [facility] [address] 70025- 7386 Jan, Chronic obstructive pulmonary disease with acute exacerbation J44.1 and Diabetes E11.9 [facility] [address] 70156- 2971 Jan, [place] [address] 26151- 1141 Jan, [facility] [facility] [address] 20023- 4341 Dec, Acute respiratory failure with hypoxia J96.01 ; Chronic bronchitis, unspecified chronic bronchitis type J42 and Tobacco use Z72.0 [place] [address] 50723- 6636 Dec, [facility] [address] [id number] Nov, Dental caries K02.9 and Dental examination Z01.20 [place] [address] 52350- 7675 Nov, Major depressive disorder, recurrent, moderate F33.1 ; Anxiety disorder, unspecified F41.9 and 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 [facility] [id number] [place] [address] [id number] Oct, Dental examination Z01.20 [facility] [address] 27071- 7920 Oct, [place] [address] 17352- 2829 Oct, Diabetes E11.9 and Thrush B37.0 [place] [address] 72962- 9622 Oct, [facility] [address] [address]- 4613 Oct, [facility] [address] [address]- 2954 Oct, [facility] [address] [address]- 4970 Sep, Major depressive disorder, recurrent, moderate F33.1 ; Anxiety disorder, unspecified F41.9 and Bipolar disorder, unspecified F31.9 [facility] [address] [address]- 2795 Sep, Acute exacerbation of chronic obstructive pulmonary disease (COPD) J44.1 and Migraine G43.909 [facility] [address] [address]- 4482 Sep, [facility] [id number] [place] [address] [id number] Sep, [facility] [address] [address]- 3422 Sep, Acute exacerbation of chronic obstructive pulmonary disease (COPD) J44.1 [facility] [address] [address] Sep, Acute exacerbation of chronic obstructive pulmonary disease (COPD) J44.1 [facility] [address] [address]- 8776 Aug, [facility] [address] [address]- 3168 Aug, Major depressive disorder, recurrent, moderate F33.1 ; Anxiety disorder, unspecified F41.9 and 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 [facility] [id number] [address]- [address] Aug, Wheezing R06.2 ; Non morbid obesity due to excess calories E66.09 ; Migraine without aura and without status migrainosus, not intractable G43.009 and Tobacco abuse Z72.0 [facility] [address] [place] [address] [id number] 14 Aug, 2016 Encounter for dental examination Z01.20 [facility] [id number] [place] [address] 54687- 0757 02 Aug, 2016 Major depressive disorder, recurrent, moderate F33.1 ; Anxiety disorder, unspecified F41.9 and 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 [facility] [id number] [place] [address] 64429- 7024 July, [facility] [id number] [place] [address] 46592- 7591 July, [facility] [id number] [place] [address] 68650- 7396 July, [facility] [id number] [place] [address] 51793- 3923 July, Diabetes E11.9 [facility] [id number] [place] [address] 24683- 0385 Jun, Major depressive disorder, recurrent, moderate F33.1 [facility] [id number] [place] [address] 12622- 9061 Jun, Major depressive disorder, recurrent, moderate F33.1 ; 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 ; Generalized anxiety disorder F41.1 and Bipolar disorder, unspecified F31.9 [facility] [id number] [place] [address] 83134- 9249 Jun, Diabetes E11.9 ; Migraine G43.909 ; Thrush B37.0 and Wheezing R06.2 [facility] [address] [place] [address] [phone] Jun, Dental examination Z01.20 [facility] [id number] [place] [address] 98596- 1041 Jun, [facility] [address] [place] [address] 41906- 4988 Jun, Major depressive disorder, recurrent, moderate F33.1 ; Anxiety disorder, unspecified F41.9 and 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 [facility] [id number] [place] [address] 20208- 9429 Jun, [facility] [address] 98830- 1536 Jun, Wheezing R06.2 [facility] [address] [id number] Jun, Dental caries K02.9 [place] [id number] [place] [address] 80340- 2578 Jun, Major depressive disorder, recurrent, moderate F33.1 ; Anxiety disorder, unspecified F41.9 and 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 [place] [id number] [place] [address] 40760- 7860 Jun, RLQ abdominal pain R10.31 ; Diabetes E11.9 ; Obesity, unspecified obesity severity, unspecified obesity type E66.9 ; Wheezing R06.2 and Abnormal urinalysis R82.90 [place] [id number] [place] [address] 48102- 3139 May, [place] [id number] [place] [address] 54607- 8712 May, Well woman exam Z01.419 ; Breast cancer screening Z12.39 ; Cervical cancer screening Z12.4 ; Urinary frequency R35.0 ; Edema, unspecified type R60.9 and Chronic constipation K59.09 [facility] [id number] [place] [address] 20070- 4849 May, Major depressive disorder, recurrent, moderate F33.1 ; Anxiety disorder, unspecified F41.9 and 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 [facility] [id number] [id number] 07 May, 2016 Dental examination Z01.20 [facility] [address] [address]- 9956 May, [facility] [address], [place] [address]- 9926 May, [facility] [address] [place] [address] 05832- 1211 May, Chronic constipation K59.09 [facility] [address] [place] [address] 00138- 5003 Apr, [facility] [address] [place] [address] 33586- 5796 Apr, Major depressive disorder, recurrent, moderate F33.1 ; Anxiety disorder, unspecified F41.9 and 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 [facility] [address] [address]- 7869 Apr, [facility] [address] [place] [address] 06886- 7808 Mar, Major depressive disorder, recurrent, moderate F33.1 [place] [address], [place] [address]- 6668 Mar, Major depressive disorder, recurrent, moderate F33.1 ; Generalized anxiety disorder F41.1 and Bipolar I disorder, most recent episode depressed with anxious distress F31.30 [facility] [address] [address]- 1862 Mar, Diabetes E11.9 ; Non morbid obesity due to excess calories E66.09 ; Breast cancer screening Z12.39 and Encounter for immunization Z23 [facility] [address], [place] [address]- 5685 Mar, Major depressive disorder, recurrent, moderate F33.1 ; Anxiety disorder, unspecified F41.9 and 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 [facility] [address] [place] [address] 96757- 5044 Mar, [facility] [id number] [place], [place] [address]- [address]81 Feb, Major depressive disorder, recurrent, moderate F33.1 ; Anxiety disorder, unspecified F41.9 and 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 [facility] [id number] [place] [address] 80019- 8826 Feb, [facility] [id number] [place] [address] 042494- 1452 Feb, [facility] [id number] [place] [address] 56176- 5572 Jan, Major depressive disorder, recurrent, moderate F33.1 ; Generalized anxiety disorder F41.1 and Bipolar disorder, current episode depressed, severe, without psychotic features F31.4 [place] [address] [place] [address] 53934- 3550 18 Jan, 2016 Major depressive disorder, recurrent, moderate F33.1 ; Anxiety disorder, unspecified F41.9 and 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 [place] [id number] [place] [address] 04886- 0869 16 Jan, 2016 Bronchitis J40 [facility] [id number] [place] [address] 02979- 2592 Jan, [facility] [id number] [place] [address] 12936- 7845 Jan, [facility] [id number] [place] [address] 12279- 4369 Jan, Elbow injury, right, initial encounter S59.901A ; Multiple contusions T14.8 and Cervical strain, acute, initial encounter S16.1XXA [facility] [id number] [place] [address] 26517- 2229 Dec, Major depressive disorder, recurrent, moderate F33.1 ; Generalized anxiety disorder F41.1 and Bipolar disorder with depression F31.30 [facility] [address], [place] [address]- 2146 Dec, [facility] [address], [place] [address]- 4034 Dec, [facility] [id number] [place] [address] 99002- 1154 Dec, [facility] [address] [place] [address] 74425- 8886 Dec, [facility] [address] [place] [address] 72448- 9665 Dec, Yeast infection B37.9 [facility] [address] [place] [address] 31915- 7649 Dec, Pneumonia of both lungs due to methicillin resistant Staphylococcus aureus (MRSA), unspecified part of lung J15.212 and Benzodiazepine overdose, accidental or unintentional, subsequent encounter T42.4X1D [place] [address] [place] [address] 75636- 7327 Dec, [facility] [address], [place] [address]- 8613 Dec, [facility] [address] [place] [address] 48320- 5572 Dec, Knee pain, left M25.562 and Edema, unspecified type R60.9 [facility] [address], [place] [address]- 2680 Dec, [place] [address] [place] [address] 02368- 0406 Dec, Anxiety disorder, unspecified F41.9 and Bipolar disorder, unspecified F31.9 [facility] [address] [place] [address] 90254- 2638 Nov, Major depressive disorder, recurrent, moderate F33.1 ; Anxiety disorder, unspecified F41.9 and 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 [place] [address] [place] [address] 26195- 9279 Nov, [facility] [id number] [place] [address] 93234- 6479 Nov, Migraine without aura and without status migrainosus, not intractable G43.009 [facility] [id number] [place] [address] 75997- 5772 Nov, Migraine G43.909 [facility] [id number] [place] [address] 72106- 6508 Nov, [facility] [id number] [place] [address] 13792- 9061 Nov, Major depressive disorder, recurrent, moderate F33.1 ; Anxiety disorder, unspecified F41.9 and 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 [place] [id number] [place] [address] 62748- 5709 Oct, Chronic constipation K59.09 and Obesity, unspecified obesity severity, unspecified obesity type E66.9 [facility] [id number] [place] [address] 94861- 1900 Oct, Obesity, unspecified obesity severity, unspecified obesity type E66.9 ; Chronic constipation K59.09 and Anxiety disorder, unspecified F41.9 [place] [address] [place] [address] 15211- 5186 Oct, [place] [id number] [place] [address] 84428- 3737 Sep, Diabetes E11.9 ; Edema, unspecified type R60.9 ; Varicose vein of leg I83.90 and Obesity, unspecified obesity severity, unspecified obesity type E66.9 [place] [id number] [place] [address] 44176- 6759 Sep, Edema, unspecified type R60.9 ; Diabetes E11.9 and Knee pain , left M25.562 [facility] [id number] [place] [address] 61574- 3693 Sep, [facility] [id number] [place] [address] 46004- 6158 Sep, [facility] [id number] [place] [address] 33153- 9349 Sep, Major depressive disorder, recurrent, moderate F33.1 ; Generalized anxiety disorder F41.1 and Bipolar disorder, unspecified F31.9 [place] [id number] [place] [address] 47850- 0186 Aug, Chondromalacia of left knee M94.262 [facility] [id number] [place] [address] 38566- 4857 Aug, Major depressive disorder, recurrent, moderate F33.1 ; Anxiety disorder, unspecified F41.9 and 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 [facility] [id number] [place] [address] 39458- 2832 Aug, [facility] [id number] [place] [address] 84680- 3987 Aug, Osteoarthritis of left knee M17.9 [facility] [id number] [place] [address] 36847- 1879 Aug, [facility] [address] [place] [address] 46406- 8528 July, Major depressive disorder, recurrent, moderate F33.1 ; Anxiety disorder, unspecified F41.9 and 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 [facility] [address] [place] [address] 07354- 9520 July, [facility] [id number] [place] [address] 09073- 4833 July, Chronic constipation K59.09 [facility] [id number] [place] [address] 48045- 1626 Jun, [facility] [id number] [place] [address] 57941- 5598 Jun, [facility] [id number] [place] [address] 50672- 7859 14 Jun, 2015 Osteoarthritis of left knee M17.9 [facility] [id number] [place] [address] 92633- 8812 Jun, [facility] [address] 88609- 5533 Jun, Generalized anxiety disorder F41.1 ; Bipolar disorder, unspecified F31.9 and Major depressive disorder, recurrent, moderate F33.1 [facility] [id number] [place] [address] 57887- 0149 Jun, Migraine G43.909 [facility] [id number] [place] [address] 17089- 0609 07 Jun, 2015 Left knee pain M25.562 ; Chronic constipation K59.09 ; Dry mouth R68.2 ; Yeast vaginitis B37.3 and Memory loss R41.3 [facility] [id number] [place] [address] 91998- 9513 Jun, [facility] [id number] [place] [address] 72125- 6705 May, [facility] [id number] [place] [address] 66525- 3053 May, [facility] [id number] [place] [address] 00138- 3441 May, [facility] [id number] [place] [address] 58410- 9368 May, [facility] [id number] [place] [address] 88324- 9213 May, Acute bronchitis with COPD J44.0 ; Knee pain, left M25.562 and Encounter for tobacco use cessation counseling Z71.6 [facility] [id number] [place] [address] 33090- 5382 May, [facility] [address] 70788- 0509 Apr, Diabetes E11.9 ; TMJ (sprain of temporomandibular joint) S03.4XXA ; Tobacco abuse Z72.0 ; Migraine G43.909 and Anxiety F41.9 [facility] [address] 67192- 0653 Apr, Generalized anxiety disorder F41.1 and Bipolar disorder, unspecified F31.9 [facility] [id number] [place] [address] 96875- 6749 Apr, Major depressive disorder, recurrent, moderate F33.1 ; Anxiety disorder, unspecified F41.9 and 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 [facility] [id number] [place] [address] 96142- 2269 Apr, [facility] [id number] [place] [address] 83098- 0856 Mar, [facility] [id number] [place] [address] 98992- 2457 Feb, [facility] [id number] [place] [address] 40877- 3764 14 Feb, 2015 Major depressive disorder, recurrent, moderate F33.1 ; Anxiety disorder, unspecified F41.9 and 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 [facility] [id number] [place] [address] 22683- 8235 Feb, [facility] [id number] [place] [address] 57387- 3731 Feb, Generalized anxiety disorder F41.1 and Bipolar disorder, unspecified F31.9 [facility] [id number] [place] [address] 27186- 9223 Jan, [facility] [id number] [place] [address] 32286- 7759 Jan, [facility] [id number] [place] [address] 97871- 2335 Jan, Bipolar disorder, unspecified F31.9 and Generalized anxiety disorder F41.1 [facility] [id number] [place] [address] 17795- 2287 Dec, [facility] [address] 53711- 8308 Dec, Bipolar disorder, unspecified F31.9 and Generalized anxiety disorder F41.1 [facility] [id number] [place] [address] 04583- 4120 Dec, Generalized anxiety disorder F41.1 and Major depressive disorder, recurrent, moderate F33.1 [facility] [id number] [place] [address] 64775- 1849 Oct, Headache 784.0 ; Cough 786.2 ; Vomiting and diarrhea 787.03 and Dysuria 788.1 [facility] [id number] [place] [address] 90573- 8478 Aug, [facility] [id number] [place] [address] 17125- 8714 Aug, Headache 784.0 and Shortness of breath 786.05 [facility] [id number] [place] [address] 83550- 0186 Aug, [facility] [id number] [place] [address] 24437- 8671 Aug, Migraine 346.90 [facility] [id number] [place] [address] 94287- 2370 Jun, [facility] [address] [facility] [id number] [place] [address]- 2447 13 Jun, 2014 [facility] [place] [facility] [address] [id number] [place] [address]- 2551 May, [facility] [place] [facility] [address] [id number] [place] [address]- 5877 May, [facility] [place] [facility] [address] [id number] [place] [address]- 4219 May, [facility] [place] [facility] [address] [id number] [place] [address]- 5323 May, [facility] [place] [facility] [address] [id number] [place] [address]- 8390 May, [facility] [place] [facility] [address] [facility] [id number] [place] [address]- 6009 May, [facility] [place] [facility] [address] [id number] [place] [address]- 4776 Apr, [facility] [place] [facility] [address] [id number] [place] [address]- 4552 Apr, [facility] [place] [facility] [address] [id number] [place] [address]- 1842 Apr, [facility] [place] [facility] [address] [id number] [place] [address]- 1535 Apr, [facility] [place] [facility] [address] [id number] [place] [address]- 6128 Apr, [facility] [place] [facility] [address] [id number] [place] [address]- 3430 Mar, [facility] [place] [facility] [address] [id number] [place] [address]- 8348 Mar, [facility] [place] [facility] [address] [id number] [place] [address]- 6220 Mar, [facility] [place] [facility] [address] [id number] [place] [address]- 1916 Mar, [facility] [place] [facility] [address] [id number] [place] [address]- 8667 Feb, [facility] [place] [facility] [address] [id number] [place] [address]- 6654 Feb, [facility] [place] [facility] [address] [id number] [place] [address]- 7070 Feb, [facility] [place] [facility] [address] [id number] [place] [address]- 1108 Feb, [facility] [place] [facility] [address] [id number] [place] [address]- 9171 Feb, [facility] [place] [facility] [address] [id number] [place] [address]- 6422 Feb, [facility] [place] [facility] [address] [id number] [place] [address]- 5080 Feb, [facility] [place] [facility] [address] [id number] [place] [address]- 4843 Feb, [facility] [place] [facility] [address] [id number] [place] [address]- 4290 Feb, [facility] [place] [facility] [address] [id number] [place] [address]- 0684 Feb, [facility] [place] [facility] [address] [id number] [place] [address]- 3197 Feb, [facility] [place] [facility] [address] [id number] [address]- 4369 Feb, [facility] [place] [facility] [address] [id number] [place] [address]- 9129 Jan, [facility] [place] [facility] [address] [id number] [place] [address]- 6256 Jan, [facility] [place] [facility] [address] [id number] [place] [address]- 0172 Dec, [facility] [place] [facility] [address] [id number] [place] [address]- 5435 Dec, [facility] [place] [facility] [address] [id number] [place] [address]- 2461 Dec, [facility] [place] [facility] [address] [id number] [place] [address]- 6605 Dec, [facility] [place] [facility] [address] [id number] [place] [address]- 1851 Dec, [facility] [place] [facility] [address] [id number] [place] [address]- 4727 Dec, [facility] [place] [facility] [address] [id number] [place] [address]- 1399 Sep, [facility] [place] [facility] [address] [id number] [place] [address]- 2323 Sep, [facility] [place] [facility] [address] [id number] [place] [address]- 9801 Sep, [facility] [place] [facility] [address] [id number] [place] [address]- 4421 Sep, [facility] [place] [facility] [address] [id number] [place] [address]- 1133 Sep, [facility] [place] [facility] [address] [id number] [place] [address]- 8597 Sep, [facility] [place] [facility] [address] [id number] [place] [address]- 7919 Sep, [facility] [place] [facility] [address] [id number] [place] [address]- 5801 Sep, [facility] [place] [facility] [address] [id number] [place] [address]- 4563 Sep, [facility] [place] [facility] [address] [id number] [place] [address]- 2309 Sep, [facility] [place] [facility] [address] [id number] [place] [address]- 2119 Aug, [facility] [place] [facility] [address] [id number] [place] [address]- 6216 Aug, [facility] [place] [facility] [address] [id number] [place] [address]- 3420 Aug, [facility] [place] [facility] [address] [id number] [place] [address]- 8767 Aug, [facility] [place] [facility] [address] [id number] [place] [address]- 3511 Aug, [facility] [place] [facility] [address] [id number] [place] [address]- 3101 Aug, [facility] [place] [facility] [address] [id number] [place] [address]- 5345 Aug, [facility] [place] [facility] [address] [id number] [place] [address]- 2632 Aug, [facility] [place] [facility] [address] [id number] [place] [address]- 2912 Aug, [facility] [place] [facility] [address] [id number] [place] [address]- 9737 Aug, [facility] [place] [facility] [address] [id number] [place] [address]- 1100 Aug, [facility] [place] [facility] [address] [id number] [place] [address]- 7156 Aug, [facility] [place] [facility] [address] [id number], [place] [address]- 0729 Aug, [facility] [place] [facility] [address] [id number] [place] [address]- 4595 July, [facility] [place] [facility] [address] [id number] [place] [address]- 7098 July, [facility] [place] [facility] [address] [id number] [place] [address]- 9282 July, [facility] [place] [facility] [address] [id number] [place] [address]- 6942 July, [facility] [place] [facility] [address] [id number] [place] [address]- 4683 July, [facility] [place] [facility] [address] [id number] [place] [address]- 6275 July, [facility] [place] [facility] [address] [id number] [place] [address]- 7974 July, [facility] [place] [facility] [address] [id number] [place] [address]- 4198 Jun, [facility] [place] [facility] [address] [id number] [place] [address]- 3039 Jun, [facility] [place] [facility] [address] [id number] [place] [address]- 2309 Jun, [facility] [place] [facility] [address] [id number] [place] [address]- 2423 Jun, [facility] [place] [facility] [address] [id number] [place] [address]- 0360 Jun, [facility] [place] [facility] [address] [id number] [place] [address]- 6008 Jun, [facility] [place] [facility] [address] [id number] [place] [address]- 0712 Jun, [facility] [place] [facility] [address] [id number] [place] [address]- 3998 17 May, 2013 [facility] [place] [facility] [address] [id number] [place] [address]- 5845 17 May, 2013 [facility] [place] [facility] [address] [id number] [place] [address]- 1331 14 May, 2013 [facility] [place] [facility] [address] [id number] [place] [address]- 0469 14 May, 2013 [facility] [place] [facility] [address] [id number] [place] [address]- 9900 13 May, 2013 [facility] [place] [facility] [address] [id number] [place] [address]- 2434 13 May, 2013 [facility] [place] [facility] [address] [id number] [place] [address]- 2922 10 May, 2013 [facility] [place] [facility] [address] [id number] [place] [address]- 4975 10 May, 2013 [facility] [place] [facility] [address] [id number] [place] [address]- 6055 07 May, 2013 [facility] [place] [facility] [address] [id number] [place] [address]- 6293 Apr, [facility] [place] [facility] [address] [id number] [place] [address]- 7896 Apr, [facility] [place] [facility] [address] [id number] [place] [address]- 9583 18 Apr, 2013 [facility] [place] [facility] [address] [id number] [place] [address]- 8357 15 Apr, 2013 [facility] [place] [facility] [address] [id number] [place] [address]- 1297 15 Apr, 2013 [facility] [place] [facility] [address] [facility] [id number] [place] [address]- 5530 Apr, [facility] [place] [facility] [address] [id number] [place] [address]- 8496 Apr, [facility] [place] [facility] [address] [id number] [place] [address]- 9875 05 Apr, 2013 [facility] [place] [facility] [address] [id number] [place] [address]- 4216 Apr, [facility] [place] [facility] [address] [id number] [place] [address]- 1472 05 Apr, 2013 [facility] [place] [facility] [address] [id number] [place] [address]- 3791 Mar, [facility] [place] [facility] [address] [id number], [place] [address]- 6163 Mar, [facility] [address] [id number] [place] [address]- 1994 Mar, [facility] [place] [facility] [address] [id number] [place] [address]- 1304 Mar, [facility] [place] [facility] [address] [id number] [place] [address]- 7593 Mar, [facility] [place] [facility] [address] [id number] [place] [address]- 7632 Mar, [facility] [place] [facility] [address] [id number] [place] [address]- 3083 Mar, [facility] [place] [facility] [address] [id number] [place] [address]- 9730 Mar, [facility] [address] [id number] [place] [address]- 3576 Feb, [facility] [place] [facility] [address] [id number] [place] [address]- 7096 Feb, [facility] [place] [facility] [address] [id number] [place] [address]- 3595 Jan, [facility] [place] [facility] [address] [id number] [place] [address]- 1952 18 Jan, 2013 [facility] [place] [facility] [address] [id number] [place] [address]- 5263 15 Jan, 2013 [facility] [place] [facility] [address] [id number], [place] [address]- 0492 15 Jan, 2013 [facility] [place] [facility] [address] [id number], [place] [address]- 4815 12 Jan, 2013 [facility] [place] [facility] [address] [id number], [place] [address]- 8064 Jan, [facility] [place] [facility] [address] [id number], [place] [address]- 1931 05 Jan, 2013 [facility] [place] [facility] [address] [id number] [place] [address]- 9075 05 Jan, 2013 [facility] [place] [facility] [address] [id number] [place] [address]- 9176 Dec, [facility] [place] [facility] [address] [id number] [place] [address]- 0946 Dec, [facility] [place] [facility] [address] [id number] [place] [address]- 3846 10 Dec, 2012 [facility] [place] [facility] [address] [id number] [place] [address]- 9665 20 Nov, 2012 [facility] [place] [facility] [address] [id number] [place] [address]- 3436 13 Nov, 2012 [facility] [place] [facility] [address] [id number] [place] [address]- 2488 12 Nov, 2012 [facility] [place] [facility] [address] [id number] [place] [address]- 7979 09 Nov, 2012 [facility] [place] [facility] [address] [id number] [place] [address]- 4723 Nov, [facility] [place] [facility] [address] [id number] [place] [address]- 6884 Nov, [facility] [place] [facility] [address] [id number] [place] [address]- 5197 Oct, [facility] [place] [facility] [address] [id number] [place] [address]- 7612 Oct, [facility] [place] [facility] [address] [id number] [place] [address] 2540 Sep, [facility] [place] [facility] [address] [id number] [place] [address] 2541 Sep, [facility] [place] [facility] [address] [id number] [place] [address]- 2549 Sep, [facility] [place] [facility] [address] [id number] [place] [address]- 1572 Sep, [facility] [address] [id number] [place] [address]- 4729 Sep, [facility] [place] [facility] [address] [id number] [place] [address]- 7670 Sep, [facility] [place] [facility] [address] [id number] [place] [address]- 1265 Sep, [facility] [place] [facility] [address] [id number] [place] [address]- 8923 Aug, [facility] [address] [id number] [place] [address]- 9180 Aug, [facility] [place] [facility] [address] [id number] [place] [address]- 3554 Aug, [facility] [place] [facility] [address] [id number] [place] [address]- 2479 Aug, [facility] [place] [facility] [address] [id number] [place] [address]- 9669 Aug, [facility] [place] [facility] [address] [id number] [place] [address]- 1498 Aug, [facility] [place] [facility] [address] [id number] [place] [address]- 8088 July, [facility] [place] [facility] [address] [id number] [place] [address]- 4013 July, [facility] [place] [facility] [address] [id number], [place] [address]- 4561 July, [facility] [place] [facility] [address] [id number] [place] [address]- 4044 July, [facility] [place] [facility] [address] [id number] [place] [address]- 9393 July, [facility] [place] [facility] [address] [id number] [place] [address]- 9214 July, [facility] [place] [facility] [address] [id number] [place] [address]- 8059 Jun, [facility] [address] [id number] [place] [address]- 8923 Jun, [facility] [place] [facility] [address] [id number] [place] [address]- 6266 15 Jun, 2012 [facility] [address] [id number] [place] [address]- 4468 Jun, [facility] [place] [facility] [address] [id number] [place] [address]- 6683 Jun, [facility] [address] [id number] [place] [address]- 3754 Jun, [facility] [place] [facility] [address] [facility] [id number] [place] [address]- 7370 Jun, [facility] [address] [id number] [place] [address]- 1492 May, [facility] [address] [id number] [place] [address]- 7977 May, [facility] [place] [facility] [address] [id number] [place] [address]- 7156 26 Apr, 2012 [facility] [address] [facility] [id number] [place] [address]- 6205 Apr, [facility] [place] [facility] [address] [id number] [place] [address] 2541 18 Apr, 2012 [facility] [place] [facility] [address] [id number] [place] [address]- 254 Apr, [facility] [place] [facility] [address] [id number] [place] 7946 12 Apr, 2012 [facility] [place] [facility] [address] [facility] [id number] [place] [address]- 2546 08 Apr, 2012 [facility] [place] [facility] [address] [facility] [id number] [place] [address]- 9997 07 Apr, 2012 [facility] [address] [id number] [place] [address]- 7093 07 Apr, 2012 [facility] [place] [facility] [address] [id number] [place] [address]- 5590 06 Apr, 2012 [facility] [place] [facility] [address] [id number] [place] [address]- 5452 Apr, [facility] [place] [facility] [address] [id number] [place] [address] Apr, [facility] [place] [facility] [address] [id number] [place] [address] Mar, [facility] [place] [facility] [address] [id number] [place] [address] Mar, [facility] [place] [facility] [address] [id number] [place] [address] Mar, [facility] [place] [facility] [address] [id number] [place] [address] Mar, [facility] [place] [facility] [address] [id number] [place] [address] Mar, [facility] [place] [facility] [address] [id number] [place] [address]697 Mar, [facility] [place] [facility] [address] [id number] [place] [address] Mar, [facility] [place] [facility] [address] [id number] [place] [address] Mar, [facility] [place] [facility] [address] [id number] [place] [address] Mar, [facility] [place] [facility] [address] [id number] [place] [address]131 Mar, [facility] [place] [facility] [address] [id number] [place] [address]606 Mar, [facility] [place] [facility] [address] [id number] [place] [address] Mar, [facility] [address] [id number] [place] [address]226 Mar, [facility] [address] [id number] [place] [address] 3566 Feb, [facility] [address] [id number] [place] [address] 4136 Feb, [facility] [address] [id number] [place] [address] 89[address] Feb, [facility] [address] [id number] [place] [address] 2957 Feb, [facility] [address] [id number] [place] [address] 6549 Feb, [facility] [address] [id number] [place] [address]365 Feb, [facility] [address] [id number] [place] [address] 99[address] Feb, [facility] [address] [id number] [place] [address]- 5479 Feb, [facility] [address] [id number] [place] [address] 2099 Feb, [facility] [address] [id number] [place] [address] 2544 Feb, [facility] [address] [id number] [place] [address] 06 Feb, 2012 [facility] [place] [facility] [address] [id number] [place] [address]31 05 Feb, 2012 [facility] [address] [id number] [place] [address] 05 Feb, 2012 [facility] [address] [id number] [place] [address] 4670 Feb, [facility] [place] [facility] [address] [id number] [place] [address] 5358 Feb, [facility] [place] [facility] [address] [id number] [place] [address] 7293 Jan, [facility] [place] [facility] [address] [id number] [place] [address] 6736 Jan, [facility] [place] [facility] [address] [id number] [place] [address] Jan, [facility] [place] [facility] [address] [id number] [place] [address]- 1794 Jan, [facility] [place] [facility] [address] [id number] [place] [address] Dec, [facility] [place] [facility] [address] [id number] [place] [address]- 6424 Dec, [facility] [place] [facility] [address] [id number], [place] [address] Dec, [facility] [place] [facility] [address] [id number], [place] [address] Dec, [facility] [place] [facility] [address] [facility] [id number], [place] [address]- [address] Dec, [facility] [place] [facility] [address] [id number], [place] [address] Dec, [facility] [place] [facility] [address] [id number], [place] [address] 7680 Dec, [facility] [place] [facility] [address] [id number], [place] [address] Dec, [facility] [place] [facility] [address] [id number], [place] [address] 77[address] Dec, [facility] [place] [facility] [address] [facility] [id number], [place] [address]- [address] Dec, [facility] [place] [facility] [address] [id number], [place] [address] 03 Oct2011 [facility] [place] [facility] [address] [id number] [place] [address] 2546 25 Sep, 2011 [facility] [place] [facility] [address] [id number] [place] [address] 2546 24 Sep, 2011 [facility] [place] [facility] [address] [id number] [place] [address]- 7686 20 Sep, 2011 [facility] [place] [facility] [address] [id number] [place] [address] 2546 19 Sep, 2011 [facility] [place] [facility] [address] [id number] [place] [address], [place] [address]- [address]6 17 Sep, 2011 [facility] [place] [facility] [address] [id number] [place] [address]- [address]226 16 Sep, 2011 [facility] [address] [id number] [place] [address]- 9938 14 Sep, 2011 [facility] [place] [facility] [address] [id number] [place] [address]- 3257 13 Sep, 2011 [facility] [place] [facility] [address] [id number] [place] [address]- 6303 12 Sep, 2011 [facility] [place] [facility] [address] [facility] [id number] [place] [address]- 8830 07 Sep, 2011 [facility] [place] [facility] [address] [id number] [place] [address] 2547 06 Sep, 2011 [facility] [place] [facility] [address] [id number], [place] [address] 254 06 Sep, 2011 [facility] [place] [facility] [address] [id number] [place] [address]- 7495 05 Sep, 2011 [facility] [place] [facility] [address] [facility] [id number] [place] [address]- 9847 29 Oct, 2011 [facility] [place] [facility] [address] [id number] [place] [address]- 2273 29 Oct, 2011 [facility] [place] [facility] [address] [id number] [place] [address]- 1679 Oct, [facility] [place] [facility] [address] [id number] [place] [address]- 0866 Oct, [facility] [place] [facility] [address] [id number] [place] [address] 2546 Oct, [facility] [place] [facility] [address] [id number] [place] [address] 2546 Oct, [facility] [place] [facility] [address] [id number] [place] [address] 2542 Oct, [facility] [place] [facility] [address] [id number] [place] [address] Oct, [facility] [place] [facility] [address] [id number] [place] [address] Oct, [facility] [place] [facility] [address] [id number] [place] [address] Oct, [facility] [place] [facility] [address] [id number] [place] [address] Oct, [facility] [place] [facility] [address] [id number] [place] [address] Sep, [facility] [place] [facility] [address] [id number] [place] [address] Sep, [facility] [place] [facility] [address] [id number] [place] [address] Sep, [facility] [place] [facility] [address] [id number] [place] [address] 2548 Sep, [facility] [place] [facility] [address] [id number] [place] [address] Sep, [facility] [place] [facility] [address] [id number] [place] [address] 2546 Sep, [facility] [place] [facility] [address] [id number] [place] [address] Aug, [facility] [address] [id number] [place] [address] July, [facility] [place] [facility] [address] [id number] [place] [address] July, [facility] [place] [facility] [address] [id number] [place] [address] Jun, [facility] [place] [facility] [address] [id number] [place] [address] Jun, [facility] [place] [facility] [address] [id number] [place] [address] Jun, [facility] [place] [facility] [address] [id number] [place] [address] Jun, [facility] [place] [facility] [address] [id number] [place] [address]- [address] Jun, [facility] [place] [facility] [address] [id number] [place] [address] Jun, [facility] [place] [facility] [address] [id number] [place] [address] Jun, [facility] [place] [facility] [address] [id number] [place] [address] 47[address] Jun, [facility] [place] [facility] [address] [id number] [place] [address] Jun, [facility] [place] [facility] [address] [id number] [place] [address] Jun, [facility] [place] [facility] [address] [id number] [place] [address] Jun, [facility] [place] [facility] [address] [id number] [place] [address] May, [facility] [place] [facility] [address] [id number] [place] [address] 74[address] May, [facility] [place] [facility] [address] [id number] [place] [address] 14 May, 2011 [facility] [place] [facility] [address] [id number] [place] [address] May, [facility] [place] [facility] [address] [id number] [place] [address] 2546 Apr, [facility] [place] [facility] [address] [id number] [place] [address] Apr, [facility] [place] [facility] [address] [id number] [place] [address] 2546 Apr, [facility] [place] [facility] [address] [id number] [place] [address] Apr, [facility] [place] [facility] [address] [id number] [place] [address] 9086 Apr, [facility] [place] [facility] [address] [id number] [place] [address] 2546 Apr, [facility] [place] [facility] [address] [id number] [place] [address]198 Apr, [facility] [place] [facility] [address] [id number] [place] [address] 66[address] Apr, [facility] [place] [facility] [address] [id number] [place] [address]679 Mar, [facility] [place] [facility] [address] [id number] [place] [address] 2546 Mar, [facility] [place] [facility] [address] [id number] [place] [address] 2546 Mar, [facility] [place] [facility] [address] [id number] [place] [address] 2546 18 Mar, 2011 [facility] [place] [facility] [address] [id number] [place] [address] 2546 17 Mar, 2011 [facility] [place] [facility] [address] [id number] [place] [address] Mar, [facility] [address] [id number] [place] [address] 6693 Mar, [facility] [place] [facility] [address] [id number] [place] [address]- [address]26 Mar, [facility] [place] [facility] [address] [id number] [place] [address]- 8510 Mar, [facility] [place] [facility] [address] [id number] [place] [address] Mar, [facility] [address] [id number] [place] [address]- 1166 Mar, [facility] [place] [facility] [address] [id number] [place] [address] Mar, [facility] [place] [facility] [address] [id number] [place] [address] Mar, [facility] [place] [facility] [address] [id number] [place] [address] 0748 Mar, [facility] [place] [facility] [address] [id number] [place] [address]- 8680 Mar, [facility] [place] [facility] [address] [id number] [place] [address] 5171 Mar, [facility] [place] [facility] [address] [id number], [place] [address] Feb, [facility] [place] [facility] [address] [id number], [place] [address] Feb, [facility] [place] [facility] [address] [id number] [place] [address]- [address]242 Feb, [facility] [place] [facility] [address] [id number] [place] [address] 29 Jan, 2011 [facility] [place] [facility] [address] [id number] [place] [address]70 Jan, [facility] [place] [facility] [address] [id number] [address] Jan, [facility] [address] [id number], [place] [address] Dec, [facility] [address] [id number], [place] [address] Dec, [facility] [id number] [address] Nov, [facility] [address] [facility] [id number], [place] [address] Oct, [facility] [id number] [address] Oct, [facility] [id number] [address] Oct, [facility] [id number] [address] Sep, [facility] [address] [id number], [place] [address] Apr, [facility] [address] [id number], [place] [address] Feb, [facility] [address] [id number], [place] [address] Jan, IMMUNIZATIONS No Known Immunizations SOCIAL HISTORY Never Assessed REASON FOR VISIT PALS-abilify increase PLAN OF CARE VITAL SIGNS MEDICATIONS Medication Instructions Dosage Frequency Start Date End Date Duration Status Abilify 15 mg Orally Once a day 1 tablet 24h Jun, 90 days Active RESULTS No Results [...] History COPD-[facility] 12/30/2016 Hospitalization History [facility] and [facility] for inpatient-last around 2006 or so. Hospitalization History for COPD Mar 2017 Hospitalization History Upper GI bleed at apr 2017 Hospitalization History [facility]- COPD Exacerbation, diarrhea 05/23/2017 Hospitalization History COPD exacerbation-[facility] 06/13/17
[2017-08-23 21:09] LABS: PROTHROMBIN TIME PATIENT 12.8 SEC (12.2-14.7)
--- OUTSIDE RECORDS SUMMARY | 2017-08-23 21:11 | XMS REPORT ---
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 Active Problem Thrush B37.0 Active 77264079 Problem TMJ (sprain of temporomandibular joint) S03.4XXA Active 36063435 Problem Tobacco abuse Z72.0 Active 19176481 Problem Non morbid obesity due to excess calories E66.09 Active 489821893 Problem Migraine G43.909 Active 93790869 Problem History of MRSA infection Z86.14 Active 457922481 Problem Knee pain, left M25.562 Active 04354773 Problem Obesity, unspecified obesity severity, unspecified obesity type E66.9 Active 320827153 Problem Migraine without aura and without status migrainosus, not intractable G43.009 Active 779600937 Problem Other emphysema J43.8 Active 64978150 Problem Chronic obstructive pulmonary disease with acute exacerbation J44.1 Active 002898231 Problem Intractable cyclical vomiting with nausea G43.A1 Active 77313707 Problem Chronic constipation K59.09 Active 629470561 Problem Acute bronchitis with COPD J44.0 Active 031706970900578 Problem Encounter for tobacco use cessation counseling Z71.6 Active 721545214 Problem Methamphetamine use disorder, moderate, 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 Active 60754535 Problem Chronic bronchitis, unspecified chronic bronchitis type J42 Active 64184785 Problem Viral illness B34.9 Active 33439627 Problem Diabetes E11.9 Active 644641812 Problem Memory loss R41.3 Active 81538245 Problem Left knee pain M25.562 Active 66024206 Problem Dry mouth R68.2 Active 42399851 Problem Yeast vaginitis B37.3 Active 44074418 Problem Generalized anxiety disorder F41.1 Active 40643654 Problem Bipolar disorder with depression F31.30 Active 66182336 Problem Bipolar disorder, unspecified F31.9 Active 43599005 Problem Bipolar disorder, current episode depressed, severe, without psychotic features F31.4 Active 39193074 ALLERGIES Substance Reaction Event Type Date Status Buspar 10 Mg Tablet made legs shaky Non Drug Allergy Jan, Active Benzodiazepines NARC ALERT Broke narc contract Non Drug Allergy Jan Active Narcotic NARC ALERT Broke Narc contract Non Drug Allergy Jan, Active ENCOUNTERS Encounter Location Date Diagnosis [facility] [address] [address] Aug, [place] [address] [address] Aug, [facility] [address] [address] July, [facility] [address] [address]- [address]31 July, [facility] [address] [address]- [address] July, Diabetes E11.9 and Chronic obstructive pulmonary disease with acute exacerbation J44.1 [place] [address] [address]- [address] Jun, Chronic obstructive pulmonary disease with acute exacerbation J44.1 ; Diabetes E11.9 and Tobacco abuse Z72.0 [facility] [address] [address]- 79[address] Jun, [facility] [address] [address]- 9437 Jun, [facility] [address] [address]- 9350 May, [facility] [id number] [place] [address] 72285- 6601 19 May, 2017 [facility] [address] [place] [id number] [place] [address] 43105 -1685 17 May, 2017 [facility] [address] [place] [id number] [place] [address] 86986- 0620 16 May, 2017 [facility] [address] [place] [id number] [place] [address] 80545- 7288 15 May, 2017 [facility] [address] [place] [id number] [place] [address] 30596- 4026 14 May, 2017 Diarrhea, unspecified type R19.7 and Intractable cyclical vomiting with nausea G43.A1 [facility] [address] [place] [id number] [place] [address] 48080- 3198 12 May, 2017 [facility] [address] [place] [id number] [place] [address] 09833- 5117 05 May, 2017 [facility] [address] [place] [id number] [place] [address] 53705- 7506 Apr, COPD exacerbation J44.1 ; Esophageal candidiasis B37.81 ; Other acute gastritis with hemorrhage K29.01 and Acute posthemorrhagic anemia D62 [facility] [address] [place] [id number] [place] [address] 17541- 1354 Apr, Viral illness B34.9 and COPD exacerbation J44.1 [facility] [id number] [place] [address] 57700 -9842 Apr, Shortness of breath R06.02 and Pneumonia of both lower lobes due to infectious organism J18.9 [facility] [address] [place] [id number] [place] [address] 13528 -6394 Mar, COPD with acute exacerbation J44.1 [facility] [address] [place] [id number] [place] [address] 06092- 8726 Mar, Chronic obstructive pulmonary disease with acute exacerbation J44.1 and Diabetes E11.9 [facility] [address] [address] 130[address] Mar, [facility] [address] [place] [id number] [place] [address] 44554- 2673 Mar, [facility] [id number] [place] [address] 64517 -3991 14 Mar, 2017 COPD exacerbation J44.1 [facility] [address] [place] [id number] [place] [address] 55508- 9433 09 Mar, 2017 [facility] [address] [place] [id number] [place] [address] 67106- 3924 Mar, Migraine G43.909 ; Hypokalemia E87.6 and Type 2 diabetes mellitus without complications E11.9 [place] [address] [place] [id number] [place] [address] 05067- 1027 Feb, [place] [address] [place] [id number] [place] [address] 19609- 1193 Feb, [place] [address] [place] [id number] [place] [address] 16632- 0825 Feb, Methamphetamine use disorder, moderate, 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 ; Major depressive disorder, recurrent, moderate F33.1 ; Anxiety disorder, unspecified F41.9 and Tobacco abuse Z72.0 [place] [id number] [place] [address] 15355- 9646 30 Jan, 2017 Major depressive disorder, recurrent, moderate F33.1 [place] [id number] [place] [address] 42719- 4690 Jan, [place] [address] [place] [id number] [place] [address] 82882- 8534 14 Jan, 2017 [place] [address] [place] [id number] [place] [address] 68137- 7056 13 Jan, 2017 Major depressive disorder, recurrent, moderate F33.1 [place] [address] [place] [id number] [place] [address] 83226- 2936 Jan, Major depressive disorder, recurrent, moderate F33.1 ; Anxiety disorder, unspecified F41.9 ; Methamphetamine use disorder, moderate, 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 and Tobacco abuse Z72.0 [facility] [address] [place] [id number] [place] [address] 01381- 2197 Jan, [facility] [address] [place] [id number] [place] [address] 86229- 4508 Jan, Chronic obstructive pulmonary disease with acute exacerbation J44.1 and Diabetes E11.9 [place] [address] [place] [id number] [place] [address] 81115- 9131 Jan, [place] [address] [place] [id number] [place] [address] 40106- 0876 Jan, [facility] [address] [place] [id number] [place] [address] 72517- 7706 Dec, Acute respiratory failure with hypoxia J96.01 ; Chronic bronchitis, unspecified chronic bronchitis type J42 and Tobacco use Z72.0 [facility] [address] [place] [id number] [place] [address] 88496- 6871 Dec, [facility] [address] [place] [id number] [place] [address] [phone] Nov, Dental caries K02.9 and Dental examination Z01.20 [place] [address] [place] [id number] [place] [address] 11655- 3156 Nov, Major depressive disorder, recurrent, moderate F33.1 ; Anxiety disorder, unspecified F41.9 and 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 [facility] [address] [place] [id number] [place] [address] [id number] Oct, Dental examination Z01.20 [facility] [address] [place] [id number] [place] [address] 69150- 2857 Oct, [facility] [address] [place] [id number] [place] [address] 67159- 8559 Oct, Diabetes E11.9 and Thrush B37.0 [facility] [address] [place] [id number] [place] [address] 59943- 8973 Oct, [facility] [address] [place] [id number] [place] [address] 64613- 3254 Oct, [facility] [address] [place] [id number] [place] [address] 78197- 4543 Oct, [facility] [address] [place] [id number] [place] [address] 42833- 8872 Sep, Major depressive disorder, recurrent, moderate F33.1 ; Anxiety disorder, unspecified F41.9 and Bipolar disorder, unspecified F31.9 [facility] [address] [place] [id number] [place] [address] 58445- 3393 Sep, Acute exacerbation of chronic obstructive pulmonary disease (COPD) J44.1 and Migraine G43.909 [facility] [address] [place] [id number] [place] [address] 25511- 4075 Sep, [facility] [address] [place] [id number] [place] [address] [id number] Sep, [facility] [address] [place] [id number] [place] [address] 12869- 2779 Sep, Acute exacerbation of chronic obstructive pulmonary disease (COPD) J44.1 [facility] [id number] [place] [address] 96132 -7651 Sep, Acute exacerbation of chronic obstructive pulmonary disease (COPD) J44.1 [facility] [id number] [place] [address] 58299- 0149 Aug, [facility] [address] [place] [id number] [place] [address] 91180- 2735 Aug, Major depressive disorder, recurrent, moderate F33.1 ; Anxiety disorder, unspecified F41.9 and 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 [facility] [address] [place] [id number] [place] [address] 21746- 9746 19 Aug, 2016 Wheezing R06.2 ; Non morbid obesity due to excess calories E66.09 ; Migraine without aura and without status migrainosus, not intractable G43.009 and Tobacco abuse Z72.0 [facility] [id number] [place] [address] [id number] 14 Aug, 2016 Encounter for dental examination Z01.20 [facility] [address] [place] [id number]- 8890 02 Aug, 2016 Major depressive disorder, recurrent, moderate F33.1 ; Anxiety disorder, unspecified F41.9 and 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 [facility] [address] [place] [id number] [place] [address] 92332- 4363 July, [facility] [address] [place] [id number] [place] [address] 81899- 3591 July, [facility] [address] [place] [id number] [place] [address] 30682- 4542 July, [facility] [address] [place] [id number] [place] [address] 65254- 6513 July, Diabetes E11.9 [facility] [address] [place] [id number] [place] [address] 4261 Jun, Major depressive disorder, recurrent, moderate F33.1 [facility] [address] [place] [id number] [place] [address] 90992- 3048 Jun, Major depressive disorder, recurrent, moderate F33.1 ; 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 ; Generalized anxiety disorder F41.1 and Bipolar disorder, unspecified F31.9 [facility] [address] [place] [id number] [place] [address] 84288- 9459 Jun, Diabetes E11.9 ; Migraine G43.909 ; Thrush B37.0 and Wheezing R06.2 [facility] [id number] [place] [address] [id number] Jun, Dental examination Z01.20 [facility] [address] [place] [id number] [place] [address] 13759- 5718 Jun, [facility] [address] [place] [id number] [place] [address] 43985- 9688 Jun, Major depressive disorder, recurrent, moderate F33.1 ; Anxiety disorder, unspecified F41.9 and 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 [facility] [address] [place] [id number] [place] [address] 20760- 9777 Jun, [facility] [address] 73593- 5641 Jun, Wheezing R06.2 [facility] [address] [id number] Jun, Dental caries K02.[address] 75370- 2376 Jun, Major depressive disorder, recurrent, moderate F33.1 ; Anxiety disorder, unspecified F41.9 and 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 [place] [address] [place] [id number] [place] [address] 19615- 7564 Jun, RLQ abdominal pain R10.31 ; Diabetes E11.9 ; Obesity, unspecified obesity severity, unspecified obesity type E66.9 ; Wheezing R06.2 and Abnormal urinalysis R82.90 [place] [address] [place] [id number] [place] [address] 90860- 5935 May, [facility] [address] [place] [id number] [place] [address] 99868- 4661 May, Well woman exam Z01.419 ; Breast cancer screening Z12.39 ; Cervical cancer screening Z12.4 ; Urinary frequency R35.0 ; Edema, unspecified type R60.9 and Chronic constipation K59.09 [place] [id number] [place] [address] 33795- 7887 May, Major depressive disorder, recurrent, moderate F33.1 ; Anxiety disorder, unspecified F41.9 and 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 [facility] [id number] [place] [address] [id number] May, Dental examination Z01.20 [facility] [id number] [place] [address] 88573- 9841 May, [facility] [address] [place] [id number] [place] [address] 86681- 1840 May, [place] [address] [place] [id number] [place] [address] 30937- 6193 May, Chronic constipation K59.09 [place] [address] [place] [id number] [place] [address] 16688- 7783 Apr, [place] [address] [place] [id number] [place] [address] 59219- 8718 Apr, Major depressive disorder, recurrent, moderate F33.1 ; Anxiety disorder, unspecified F41.9 and 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 [place] [address] [place] [id number] [place] [address] 20582- 0998 Apr, [facility] [address] [place] [address] 28439- 6393 Mar, Major depressive disorder, recurrent, moderate F33.1 [place] [address] [place] [id number] [place] [address] 36069- 0014 Mar, Major depressive disorder, recurrent, moderate F33.1 ; Generalized anxiety disorder F41.1 and Bipolar I disorder, most recent episode depressed with anxious distress F31.30 [place] [address] [place] [id number] [place] [address] 90630- 9819 Mar, Diabetes E11.9 ; Non morbid obesity due to excess calories E66.09 ; Breast cancer screening Z12.39 and Encounter for immunization Z23 [facility] [address] [place] [id number] [place] [address] 29592- 7143 Mar, Major depressive disorder, recurrent, moderate F33.1 ; Anxiety disorder, unspecified F41.9 and 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 [facility] [address] [place] [address] 27067- 9166 Mar, [facility] [address] [address]- 5678 Feb, Major depressive disorder, recurrent, moderate F33.1 ; Anxiety disorder, unspecified F41.9 and 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 [facility] [address] [address]- 4318 Feb, [facility] [id number] [place] [address] 42205- 6501 Feb, [facility] [id number] [place] [address] 52091- 8280 Jan, Major depressive disorder, recurrent, moderate F33.1 ; Generalized anxiety disorder F41.1 and Bipolar disorder, current episode depressed, severe, without psychotic features F31.4 [facility] [address] [place] [address] 88400- 8924 Jan, Major depressive disorder, recurrent, moderate F33.1 ; Anxiety disorder, unspecified F41.9 and 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 [facility] [address] [address]- 4216 16 Jan, 2016 Bronchitis J40 [facility] [address] [address]- 9405 Jan, [facility] [address] [place] [address] 98047- 6195 Jan, [facility] [address] [address]- 6725 Jan, Elbow injury, right, initial encounter S59.901A ; Multiple contusions T14.8 and Cervical strain, acute, initial encounter S16.1XXA [facility] [address] [facility] [id number] [address]- 3844 Dec, Major depressive disorder, recurrent, moderate F33.1 ; Generalized anxiety disorder F41.1 and Bipolar disorder with depression F31.30 [place] [address] [facility] [id number] [address]- 5721 Dec, [facility] [address] [facility] [id number] [place] [address] 81128- 0967 Dec, [place] [address] [facility] [id number] [place] [address] 59325- 0616 Dec, [place] [address] [facility] [id number] [place] [address] 83652- 3464 Dec, [place] [address] [address]- 3129 Dec, Yeast infection B37.9 [place] [id number] [place] [address] 54692- 4768 Dec, Pneumonia of both lungs due to methicillin resistant Staphylococcus aureus (MRSA), unspecified part of lung J15.212 and Benzodiazepine overdose, accidental or unintentional, subsequent encounter T42.4X1D [place] [address] [place] [id number] [address]- 4355 Dec, [place] [address] [address]- 3309 Dec, [place] [address] [place] [id number] [place] [address] 00186- 3437 Dec, Knee pain, left M25.562 and Edema, unspecified type R60.9 [place] [address] [address]- 0146 Dec, [place] [address] [place] [id number] [address]- 2056 Dec, Anxiety disorder, unspecified F41.9 and Bipolar disorder, unspecified F31.9 [place] [id number] [place] [address] 99395- 9533 Nov, Major depressive disorder, recurrent, moderate F33.1 ; Anxiety disorder, unspecified F41.9 and 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 [place] [address] [place] [id number] [place] [address] 48462- 8294 Nov, [place] [address] [place] [id number] [place] [address] 855451- 1776 Nov, Migraine without aura and without status migrainosus, not intractable G43.009 [place] [address] [place] [id number] [place] [address] 133576- 8751 Nov, Migraine G43.909 [place] [address] [place] [id number] [place] [address] 41803- 7106 Nov, [place] [address] [place] [id number] [place] [address] 51228- 1472 Nov, Major depressive disorder, recurrent, moderate F33.1 ; Anxiety disorder, unspecified F41.9 and 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 [place] [address] [place] [address] 66036- 2376 Oct, Chronic constipation K59.09 and Obesity, unspecified obesity severity, unspecified obesity type E66.9 [place] [address] [place] [id number] [place] [address] 13922- 1585 Oct, Obesity, unspecified obesity severity, unspecified obesity type E66.9 ; Chronic constipation K59.09 and Anxiety disorder, unspecified F41.9 [place] [address] [place] [id number] [place] [address] 32522- 3919 Oct, [place] [address] [place] [id number] [place] [address] 12954- 6355 Sep, Diabetes E11.9 ; Edema, unspecified type R60.9 ; Varicose vein of leg I83.90 and Obesity, unspecified obesity severity, unspecified obesity type E66.9 [place] [address] [place] [id number] [place] [address] 18977- 8685 Sep, Edema, unspecified type R60.9 ; Diabetes E11.9 and Knee pain , left M25.562 [place] [address] [place] [id number] [place] [address] 63522- 8310 Sep, [place] [address] [place] [id number] [place] [address] 77095- 8902 Sep, [place] [address] [place] [id number] [place] [address] 97679- 3057 Sep, Major depressive disorder, recurrent, moderate F33.1 ; Generalized anxiety disorder F41.1 and Bipolar disorder, unspecified F31.9 [place] [address] [place] [id number] [place] [address] 29778- 5696 Aug, Chondromalacia of left knee M94.262 [place] [address] [place] [id number] [place] [address] 25302- 3095 Aug, Major depressive disorder, recurrent, moderate F33.1 ; Anxiety disorder, unspecified F41.9 and 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 [place] [id number] [place] [address] 07128- 7784 Aug, [place] [address] [place] [id number] [place] [address] 16383- 6299 Aug, Osteoarthritis of left knee M17.9 [place] [id number] [place] [address] 62971- 2160 Aug, [place] [address] [place] [id number] [place] [address] 29226- 3216 July, Major depressive disorder, recurrent, moderate F33.1 ; Anxiety disorder, unspecified F41.9 and 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 [place] [address] [place] [id number] [place] [address] 32054- 4217 July, [facility] [address] [id number] [place] [address] 29693- 1924 July, Chronic constipation K59.09 [facility] [address] [id number] [place] [address] 65253- 4586 Jun, [facility] [address] [id number] [place] [address] 81844- 7451 Jun, [facility] [address] [id number] [place] [address] 23470- 5305 14 Jun, 2015 Osteoarthritis of left knee M17.9 [facility] [address] 61983- 0339 Jun, [facility] [address] [place] [id number] [place] [address] 49576- 2802 Jun, Generalized anxiety disorder F41.1 ; Bipolar disorder, unspecified F31.9 and Major depressive disorder, recurrent, moderate F33.1 [facility] [address] [id number] [place] [address] 76855- 7298 Jun, Migraine G43.909 [facility] [address] [place] [id number] [place] [address] 20191- 1016 07 Jun, 2015 Left knee pain M25.562 ; Chronic constipation K59.09 ; Dry mouth R68.2 ; Yeast vaginitis B37.3 and Memory loss R41.3 [facility] [id number] [place] [address] 09490- 2076 Jun, [facility] [id number] [place] [address] 39645- 1887 May, [facility] [id number] [place] [address] 77696- 9730 May, [facility] [id number] [place] [address] 01220- 7464 May, [facility] [address] 02661- 3456 May, [address] [id number] [place] [address] 92703- 6948 May, Acute bronchitis with COPD J44.0 ; Knee pain, left M25.562 and Encounter for tobacco use cessation counseling Z71.6 [place] [id number] [place] [address] 19630- 5526 May, [facility] [id number] [place] [address] 58027- 7896 Apr, Diabetes E11.9 ; TMJ (sprain of temporomandibular joint) S03.4XXA ; Tobacco abuse Z72.0 ; Migraine G43.909 and Anxiety F41.9 [place] [id number] [place] [address] 20450- 8495 Apr, Generalized anxiety disorder F41.1 and Bipolar disorder, unspecified F31.9 [place] [id number] [place] [address] 24352- 5792 Apr, Major depressive disorder, recurrent, moderate F33.1 ; Anxiety disorder, unspecified F41.9 and 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 [place] [id number] [place] [address] 87191- 9655 Apr, [place] [id number] [place] [address] 81186- 5341 Mar, [place] [id number] [place] [address] 22668- 5641 Feb, [place] [id number] [place] [address] 27557- 5460 14 Feb, 2015 Major depressive disorder, recurrent, moderate F33.1 ; Anxiety disorder, unspecified F41.9 and 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 [place] [id number] [place] [address] 99270- 0376 Feb, [facility] [id number] [place] [address] 32550- 1244 Feb, Generalized anxiety disorder F41.1 and Bipolar disorder, unspecified F31.9 [facility] [id number] [place] [address] 64240- 9474 Jan, [facility] [id number] [place] [address] 20666- 6381 Jan, [facility] [id number] [place] [address] 72980- 1823 Jan, Bipolar disorder, unspecified F31.9 and Generalized anxiety disorder F41.1 [place] [id number] [place] [address] 90033- 4701 Dec, [place] [id number] [place] [address] 21752- 0170 Dec, Bipolar disorder, unspecified F31.9 and Generalized anxiety disorder F41.1 [place] [id number] [place] [address] 83026- 0896 Dec, Generalized anxiety disorder F41.1 and Major depressive disorder, recurrent, moderate F33.1 [place] [id number] [place] [address] 26050- 4171 Oct, Headache 784.0 ; Cough 786.2 ; Vomiting and diarrhea 787.03 and Dysuria 788.1 [place] [id number] [place] [address] 29618- 2779 Aug, [place] [id number] [place] [address] 84205- 3774 Aug, Headache 784.0 and Shortness of breath 786.05 [place] [id number] [place] [address] 94792- 5524 Aug, [place] [id number] [place] [address] 20563- 2185 Aug, Migraine 346.90 [place] [address] [id number] [place] [address]- 2868 14 Jun, 2014 [facility] [place] [facility] [address] [id number] [place] [address]- 7573 13 Jun, 2014 [facility] [place] [facility] [address] [id number] [place] [address]- 2057 May, [facility] [place] [facility] [address] [id number] [place] [address]- 6549 May, [facility] [place] [facility] [address] [id number] [place] [address]- 2935 May, [facility] [place] [facility] [address] [id number] [place] [address]- 6609 May, [facility] [place] [facility] [address] [facility] [id number] [place] [address]- 5309 May, [facility] [place] [facility] [address] [id number] [place] [address]- 4703 May, [facility] [place] [facility] [address] [id number] [place] [address]- 0042 Apr, [facility] [place] [facility] [address] [id number] [place] [address]- 7702 Apr, [facility] [place] [facility] [address] [id number] [place] [address]- 0228 Apr, [facility] [place] [facility] [address] [id number] [place] [address]- 9487 Apr, [facility] [place] [facility] [address] [id number] [place] [address]- 6899 Apr, [facility] [place] [facility] [address] [id number] [place] [address]- 8932 Mar, [facility] [place] [facility] [address] [id number] [place] [address]- 2889 Mar, [facility] [place] [facility] [address] [id number] [place] [address]- 2546 Mar, [facility] [place] [facility] [address] [id number] [place] [address]- 8933 Mar, [facility] [place] [facility] [address] [id number] [place] [address]- 0046 Feb, [facility] [place] [facility] [address] [id number] [place] [address]- 8968 Feb, [facility] [place] [facility] [address] [id number] [place] 5329 Feb, [facility] [place] [facility] [address] [id number] [place] [address]- 3443 Feb, [facility] [place] [facility] [address] [id number] [place] [address]- 0614 Feb, [facility] [place] [facility] [address] [id number] [place] [address]- 6948 Feb, [facility] [place] [facility] [address] [id number] [place] [address]- 6917 Feb, [facility] [place] [facility] [address] [id number] [place] [address]- 4341 Feb, [facility] [place] [facility] [address] [id number] [place] [address]- 3196 Feb, [facility] [place] [facility] [address] [id number] [place] [address]- 0636 Feb, [facility] [place] [facility] [address] [id number] [place] [address]- 5472 Feb, [facility] [place] [facility] [address] [id number] [place] 4345 Feb, [facility] [place] [facility] [address] [id number] [place] [address]- 8941 Jan, [facility] [place] [facility] [address] [id number] [place] 2330 Jan, [facility] [place] [facility] [address] [id number] [place] [address]- 0979 Dec, [facility] [place] [facility] [address] [id number] [place] [address]- 9490 Dec, [facility] [place] [facility] [address] [id number] [place] [address]- 5030 Dec, [facility] [place] [facility] [address] [id number] [place] [address]- 8427 Dec, [facility] [place] [facility] [address] [id number] [place] [address]- 1433 Dec, [facility] [place] [facility] [address] [id number] [place] [address]- 2777 Dec, [facility] [place] [facility] [address] [id number] [place] [address]- 8144 Sep, [facility] [place] [facility] [address] [id number] [place] [address]- 0875 Sep, [facility] [place] [facility] [address] [id number] [place] [address]- 5471 Sep, [facility] [place] [facility] [address] [id number] [place] [address]- 1604 Sep, [facility] [place] [facility] [address] [id number] [place] [address]- 3320 Sep, [facility] [place] [facility] [address] [id number] [place] [address]- 6401 Sep, [facility] [place] [facility] [address] [id number] [place] [address]- 3818 Sep, [facility] [place] [facility] [address] [id number] [place] [address]- 1353 Sep, [facility] [place] [facility] [address] [id number] [place] [address]- 1850 Sep, [facility] [place] [facility] [address] [id number] [place] 6377 Sep, [facility] [place] [facility] [address] [id number] [place] [address]- 0006 Aug, [facility] [place] [facility] [address] [id number] [place] [address]- 2280 Aug, [facility] [place] [facility] [address] [id number] [place] [address]- 6412 Aug, [facility] [place] [facility] [address] [id number] [place] [address]- 6077 Aug, [facility] [place] [facility] [address] [id number] [place] [address]- 2374 Aug, [facility] [place] [facility] [address] [id number] [place] [address]- 3112 Aug, [facility] [place] [facility] [address] [id number] [place] [address]- 9886 Aug, [facility] [place] [facility] [address] [id number] [place] [address]- 4288 Aug, [facility] [place] [facility] [address] [id number] [place] [address]- 1358 Aug, [facility] [place] [facility] [address] [id number] [place] [address]- 9756 Aug, [facility] [place] [facility] [address] [id number] [place] [address]- 9231 Aug, [facility] [place] [facility] [address] [id number] [address]- 3921 Aug, [facility] [place] [facility] [address] [id number] [place] [address]- 2139 Aug, [facility] [place] [facility] [address] [id number] [place] [address]- 9707 July, [facility] [place] [facility] [address] [id number] [place] [address]- 2041 July, [facility] [place] [facility] [address] [id number] [address]- 6493 July, [facility] [address] [id number] [place] [address]- 1963 July, [facility] [place] [facility] [address] [id number] [place] [address]- 9947 July, [facility] [place] [facility] [address] [id number] [place] [address]- 4409 July, [facility] [place] [facility] [address] [id number] [place] [address]- 0312 July, [facility] [place] [facility] [address] [id number] [place] [address]- 0943 Jun, [facility] [place] [facility] [address] [id number] [place] [address]- 9089 Jun, [facility] [place] [facility] [address] [id number] [place] [address]- 1928 Jun, [facility] [place] [facility] [address] [id number] [place] [address]- 6890 Jun, [facility] [place] [facility] [address] [id number] [place] [address]- 5745 Jun, [facility] [place] [facility] [address] [id number] [place] [address]- 0049 Jun, [facility] [place] [facility] [address] [id number] [place] [address]- 9507 Jun, [facility] [place] [facility] [address] [id number] [place] [address]- 6552 May, [facility] [place] [facility] [address] [id number] [place] [address]- 7626 May, [facility] [place] [facility] [address] [id number] [place] [address]- 1573 May, [facility] [place] [facility] [address] [id number] [place] [address]- 9170 May, [facility] [place] [facility] [address] [id number] [place] [address]- 1509 13 May, 2013 [facility] [place] [facility] [address] [id number] [place] [address]- 9858 13 May, 2013 [facility] [place] [facility] [address] [id number] [place] [address]- 2842 10 May, 2013 [facility] [place] [facility] [address] [id number] [place] [address]- 5225 10 May, 2013 [facility] [place] [facility] [address] [id number] [place] [address]- 1182 07 May, 2013 [facility] [place] [facility] [address] [id number] [place] [address]- 7556 Apr, [facility] [place] [facility] [address] [id number] [place] [address]- 2572 Apr, [facility] [place] [facility] [address] [id number] [place] [address]- 2172 18 Apr, 2013 [facility] [place] [facility] [address] [id number] [place] [address]- 5481 15 Apr, 2013 [facility] [place] [facility] [address] [facility] [id number] [place] [address]- 4376 15 Apr, 2013 [facility] [place] [facility] [address] [facility] [id number] [place] [address]- 4429 Apr, [facility] [place] [facility] [address] [id number] [place] [address]- 0867 05 Apr, 2013 [facility] [place] [facility] [address] [id number] [place] [address]- 7930 Apr, [facility] [place] [facility] [address] [id number] [place] [address]- 2328 Apr, [facility] [place] [facility] [address] [id number] [place] [address]- 4479 Apr, [facility] [place] [facility] [address] [id number] [place] [address]- 2970 10 Mar, 2013 [facility] [place] [facility] [address] [id number] [place] [address]- 7006 Mar, [facility] [place] [facility] [address] [id number] [place] [address]- 7161 Mar, [facility] [place] [facility] [address] [id number] [place] [address]- 9305 Mar, [facility] [place] [facility] [address] [id number] [place] [address]- 3205 Mar, [facility] [place] [facility] [address] [id number] [place] [address]- 4066 Mar, [facility] [place] [facility] [address] [id number] [place] [address]- 7862 Mar, [facility] [place] [facility] [address] [id number] [place] [address]- 2141 Mar, [facility] [place] [facility] [address] [id number] [place] [address]- 5129 Feb, [facility] [place] [facility] [address] [id number] [place] [address]- 4689 Feb, [facility] [place] [facility] [address] [id number] [place] [address]- 0551 Jan, [facility] [place] [facility] [address] [id number] [place] [address]- 4273 18 Jan, 2013 [facility] [place] [facility] [address] [id number] [place] [address]- 1131 15 Jan, 2013 [facility] [place] [facility] [address] [id number] [place] [address]- 4231 Jan, [facility] [place] [facility] [address] [id number] [place] [address]- 9085 12 Jan, 2013 [facility] [place] [facility] [address] [id number] [place] [address]- 5372 Jan, [facility] [place] [facility] [address] [id number] [place] [address]- 9135 Jan, [facility] [place] [facility] [address] [id number] [place] [address]- 7968 Jan, [facility] [place] [facility] [address] [id number] [place] [address]- 3368 Dec, [facility] [place] [facility] [address] [id number] [place] [address]- 7628 Dec, [facility] [place] [facility] [address] [id number] [place] [address]- 0344 10 Dec, 2012 [facility] [place] [facility] [address] [id number] [place] [address]- 0791 20 Nov, 2012 [facility] [place] [facility] [address] [id number] [place] [address]- 4502 13 Nov, 2012 [facility] [place] [facility] [address] [id number] [place] [address]- 3664 12 Nov, 2012 [facility] [place] [facility] [address] [id number] [place] [address]- 5966 Nov, [facility] [place] [facility] [address] [id number] [place] [address]- 2638 06 Nov, 2012 [facility] [place] [facility] [address] [id number] [place] [address]- 5389 Nov, [facility] [place] [facility] [address] [id number] [place] [address]- 9937 Oct, [facility] [place] [facility] [address] [id number] [place] [address]- 0852 Oct, [facility] [place] [facility] [address] [id number] [place] [address]- 6444 Sep, [facility] [place] [facility] [address] [id number] [place] [address]- 7168 Sep, [facility] [place] [facility] [address] [id number] [place] [address]- 0517 Sep, [facility] [place] [facility] [address] [id number] [place] [address]- 5190 Sep, [facility] [place] [facility] [address] [id number] [place] [address]- 7318 Sep, [facility] [place] [facility] [address] [id number] [place] [address]- 5321 Sep, [facility] [place] [facility] [address] [id number] [place] [address]- 0423 Sep, [facility] [place] [facility] [address] [id number] [place] [address]- 7200 Aug, [facility] [place] [facility] [address] [id number] [place] [address]- 3757 Aug, [facility] [place] [facility] [address] [id number] [place] [address]- 9695 Aug, [facility] [place] [facility] [address] [id number] [place] [address]- 2185 Aug, [facility] [place] [facility] [address] [id number] [place] [address]- 0661 Aug, [facility] [place] [facility] [address] [id number] [place] [address]- 9667 Aug, [facility] [place] [facility] [address] [id number] [place] [address]- 2635 July, [facility] [place] [facility] [address] [id number] [place] [address]- 4982 July, [facility] [place] [facility] [address] [id number] [place] [address]- 2535 July, [facility] [place] [facility] [address] [id number] [place] [address]- 0638 July, [facility] [place] [facility] [address] [id number] [place] [address]- 2163 July, [facility] [place] [facility] [address] [id number] [place] [address]- 0103 July, [facility] [address] [id number] [place] [address]- 1226 Jun, [facility] [address] [id number] [place] [address]- 2722 Jun, [facility] [address] [id number] [place] [address]- 8518 Jun, [facility] [address] [id number] [place] [address]- 6596 Jun, [facility] [address] [id number] [place] [address]- 4036 Jun, [facility] [address] [id number] [place] [address]- 1211 Jun, [facility] [address] [id number] [place] [address]- 7714 Jun, [facility] [address] [id number] [place] [address]- 7179 May, [facility] [address] [id number] [place] [address]- 2625 May, [facility] [address] [id number] [place] [address] Apr, [facility] [address] [id number] [place] [address] Apr, [facility] [address] [id number] [place] [address] Apr, [facility] [place] [facility] [address] [id number] [place] [address] Apr, [facility] [address] [id number] [place] [address] Apr, [facility] [address] [id number] [place] [address] 08 Apr, 2012 [facility] [address] [id number] [place] [address] 07 Apr, 2012 [facility] [place] [facility] [address] [id number] [place] [address] 07 Apr, 2012 [facility] [place] [facility] [address] [id number] [place] [address]- [address] Apr, [facility] [place] [facility] [address] [id number] [place] [address] Apr, [facility] [place] [facility] [address] [id number] [place] [address] Apr, [facility] [place] [facility] [address] [id number] [place] [address] Mar, [facility] [place] [facility] [address] [id number] [place] [address] Mar, [facility] [place] [facility] [address] [id number] [place] [address] Mar, [facility] [place] [facility] [address] [id number] [place] [address] Mar, [facility] [place] [facility] [address] [id number] [place] [address] Mar, [facility] [place] [facility] [address] [id number] [place] [address] Mar, [facility] [place] [facility] [address] [id number] [place] [address]- [address] Mar, [facility] [place] [facility] [address] [id number] [place] [address]- [address] Mar, [facility] [place] [facility] [address] [id number] [place] [address] Mar, [facility] [place] [facility] [address] [id number] [place] [address]- [address] Mar, [facility] [place] [facility] [address] [id number] [place] [address]- [address] Mar, [facility] [address] [id number] [place] [address] Mar, [facility] [address] [id number] [place] [address] Mar, [facility] [address] [id number] [place] [address] Feb, [facility] [address] [id number] [place] [address] Feb, [facility] [address] [id number] [place] [address] Feb, [facility] [address] [id number] [place] [address] Feb, [facility] [address] [id number] [place] [address] Feb, [facility] [address] [id number] [place] [address]65 Feb, [facility] [address] [id number] [place] [address] 1468 Feb, [facility] [address] [id number] [place] [address] Feb, [facility] [address] [id number] [place] [address] Feb, [facility] [address] [id number] [place] [address] 10 Feb, 2012 [facility] [place] [facility] [address] [id number] [place] [address] 2016 Feb, [facility] [address] [id number] [place] [address]- [address] 05 Feb, 2012 [facility] [address] [id number] [place] [address] Feb, [facility] [place] [facility] [address] [id number] [place] [address] Feb, [facility] [place] [facility] [address] [id number] [place] [address] Feb, [facility] [place] [facility] [address] [id number] [place] [address] Jan, [facility] [place] [facility] [address] [id number] [place] [address] Jan, [facility] [place] [facility] [address] [id number] [place] [address]- [address] Jan, [facility] [place] [facility] [address] [id number] [place] [address]- [address] Jan, [facility] [place] [facility] [address] [id number] [place] [address]- [address] Dec, [facility] [place] [facility] [address] [id number] [place] [address]- [address] Dec, [facility] [place] [facility] [address] [id number] [place] [address]- [address] Dec, [facility] [place] [facility] [address] [id number] [address] Dec, [facility] [place] [facility] [address] [id number], [place] [address] Dec, [facility] [place] [facility] [address] [id number], [place] [address] Dec, [facility] [place] [facility] [address] [id number] [place] [address] Dec, [facility] [place] [facility] [address] [id number], [place] [address] Dec, [facility] [place] [facility] [address] [facility] [id number], [place] [address] Dec, [facility] [place] [facility] [address] [id number] [place] [address]- [address]69 04 Dec, 2011 [facility] [address] [id number] [place] [address]- [address] 03 Dec, 2011 [facility] [place] [facility] [address] [id number] [place] [address]- 47[address] 25 Sep, 2011 [facility] [place] [facility] [address] [id number] [place] [address]- [address] 24 Sep, 2011 [facility] [place] [facility] [address] [id number] [place] [address]- [address] 20 Sep, 2011 [facility] [place] [facility] [address] [id number] [place] [address], [place] [address]- [address]40 19 Sep, 2011 [facility] [place] [facility] [address] [id number] [place] [address] 17 Sep, 2011 [facility] [address] [id number] [place] [address] 16 Sep, 2011 [facility] [place] [facility] [address] [id number] [place] [address] 14 Sep, 2011 [facility] [place] [facility] [address] [id number] [place] [address] 13 Sep, 2011 [facility] [place] [facility] [address] [id number] [place] [address] 12 Sep, 2011 [facility] [place] [facility] [address] [id number] [place] [address] 07 Sep, 2011 [facility] [place] [facility] [address] [id number] [address] 06 Sep, 2011 [facility] [place] [facility] [address] [id number] [place] [address] 2547 06 Sep, 2011 [facility] [place] [facility] [address] [id number] [place] [address] 05 Sep, 2011 [facility] [place] [facility] [address] [id number] [address] 29 Oct, 2011 [facility] [place] [facility] [address] [id number] [place] [address] Oct, [facility] [place] [facility] [address] [id number] [place] [address] Oct, [facility] [place] [facility] [address] [id number] [place] [address] 2546 Oct, [facility] [place] [facility] [address] [id number] [place] [address] 2546 Oct, [facility] [place] [facility] [address] [id number] [place] [address] 2548 Oct, [facility] [place] [facility] [address] [id number] [place] [address] 235[address] Oct, [facility] [place] [facility] [address] [id number] [place] [address] 16 Oct, 2011 [facility] [place] [facility] [address] [id number] [place] [address] Oct, [facility] [place] [facility] [address] [id number] [place] [address] Oct, [facility] [place] [facility] [address] [id number] [place] [address] Oct, [facility] [place] [facility] [address] [id number] [place] [address] Sep, [facility] [place] [facility] [address] [id number] [place] [address] Sep, [facility] [place] [facility] [address] [id number] [place] [address] 2547 Sep, [facility] [place] [facility] [address] [id number] [place] [address] 2546 Sep, [facility] [place] [facility] [address] [id number] [place] [address] Sep, [facility] [place] [facility] [address] [id number] [place] [address] Sep, [facility] [address] [id number] [place] [address] Aug, [facility] [place] [facility] [address] [id number] [place] [address] July, [facility] [place] [facility] [address] [id number] [place] [address] July, [facility] [place] [facility] [address] [id number] [place] [address] 6[address] Jun, [facility] [place] [facility] [address] [id number] [place] [address] 30[address] Jun, [facility] [place] [facility] [address] [id number] [place] [address] 60[address] Jun, [facility] [place] [facility] [address] [id number] [place] [address] Jun, [facility] [place] [facility] [address] [id number] [place] [address] Jun, [facility] [place] [facility] [address] [id number] [place] [address] Jun, [facility] [place] [facility] [address] [id number] [place] [address] Jun, [facility] [place] [facility] [address] [id number] [place] [address] Jun, [facility] [place] [facility] [address] [id number], [place] [address] Jun, [facility] [place] [facility] [address] [id number] [place] [address] Jun, [facility] [place] [facility] [address] [id number] [place] [address] 44[address] Jun, [facility] [place] [facility] [address] [id number] [place] [address] 160[address] May, [facility] [place] [facility] [address] [id number] [place] [address] 16 May, 2011 [facility] [place] [facility] [address] [id number] [place] [address] 14 May, 2011 [facility] [place] [facility] [address] [id number] [place] [address] 2546 06 May, 2011 [facility] [place] [facility] [address] [id number] [place] [address] 94[address] 28 Apr, 2011 [facility] [place] [facility] [address] [id number] [place] [address] 2546 28 Apr, 2011 [facility] [place] [facility] [address] [id number] [place] [address] Apr, [facility] [place] [facility] [address] [id number] [place] [address] 8546 Apr, [facility] [place] [facility] [address] [id number] [place] [address] 2546 Apr, [facility] [place] [facility] [address] [id number] [place] [address] 9561 Apr, [facility] [place] [facility] [address] [id number] [place] [address] 7[address] Apr, [facility] [place] [facility] [address] [id number] [place] [address] 270[address] Apr, [facility] [place] [facility] [address] [id number] [place] [address] 2546 Mar, [facility] [place] [facility] [address] [id number] [place] [address] 2547 Mar, [facility] [place] [facility] [address] [id number] [place] [address] 2546 Mar, [facility] [place] [facility] [address] [id number] [place] [address] 2546 18 Mar, 2011 [facility] [place] [facility] [address] [id number] [place] [address] 74[address] Mar, [facility] [address] [id number] [place] [address] 5947 Mar, [facility] [place] [facility] [address] [id number] [place] [address]- 7137 Mar, [facility] [place] [facility] [address] [id number] [place] [address]- 7[address] Mar, [facility] [place] [facility] [address] [id number] [place] [address] 4064 Mar, [facility] [address] [id number] [place] [address]- 4255 Mar, [facility] [place] [facility] [address] [id number] [place] [address]- 3252 Mar, [facility] [place] [facility] [address] [id number] [place] [address]- 1408 Mar, [facility] [place] [facility] [address] [id number] [place] [address]- 8835 Mar, [facility] [place] [facility] [address] [id number] [place] [address]- 3960 Mar, [facility] [place] [facility] [address] [id number] [place] [address]- 6[address] Mar, [facility] [place] [facility] [address] [id number], [place] [address] Mar, [facility] [place] [facility] [address] [id number], [place] [address] Feb, [facility] [place] [facility] [address] [id number] [place] [address]- 8312 Feb, [facility] [place] [facility] [address] [id number] [place] [address]- 0069 Feb, [facility] [place] [facility] [address] [id number] [place] [address]- 8276 Jan, [facility] [place] [facility] [address] [id number], [place] [address] 25[address] Jan, [facility] [address] [id number], [place] [address] 2546 Jan, [facility] [address], [place] [address] Dec, [facility] [address] [id number], [place] [address] Dec, [facility] [id number], [place] [address]- 25[address] Nov, [facility] [id number], [place] [address]- [address] Oct, [facility] [address], [place] [address]- 2546 Oct, [facility] [address], [place] [address]- [address] Oct, [facility] [address], [place] [address]- 9[address] Sep, [facility] [address] [id number], [place] [address]- [address] Apr, [facility] [address] [id number], [place] [address]- [address] Feb, [facility] [address] [id number], [place] [address] 2546 Jan, IMMUNIZATIONS No Known Immunizations SOCIAL HISTORY Never Assessed REASON FOR VISIT Via [facility] Follow up, PT was there from Dec 30- for her COPD. PT says she is better and would like a signed thanh-Benjamin FERREIRA PLAN OF CARE Activity Details Follow Up 4 Weeks Reason:COPD VITAL SIGNS Height 70 in 2017-01-12 Weight 256.0 lbs 2017-01-12 Temperature 98.4 degrees Fahrenheit 2017-01-12 Heart Rate 109 bpm 2017-01-12 Respiratory Rate 22 2017-01-12 Oximetry on room air:97 % 2017-01-12 BMI 36.73 kg/m2 2017-01-12 Blood pressure systolic 132 mmHg 2017-01-12 Blood pressure diastolic 80 mmHg 2017-01-12 MEDICATIONS Medication Instructions Dosage Frequency Start Date End Date Duration Status Multivitamin Adult - Active Advair Diskus 250 mcg-50 mcg Inhalation Twice a day 1 puff 12h Dec, Active Abilify 5 mg Orally Once a day 1 tablet 24h Jun, 30 days Active Spiriva HandiHaler 18 MCG Inhalation Once a day 1 capsule 24h Active Cymbalta 60 mg Orally PALS Twice a day 1 capsule 12h Feb, 30 days Active Zyprexa 15 MG Orally Once a day 1 tablet 24h Jan, 30 days Active Ventolin HFA 90 mcg/actuation Inhalation every 4 hrs 2 puffs as needed 4h Dec, Active Neurontin 300 MG Orally Three times a day 1 capsule 8h Dec, 30 days Active Ipratropium-Albuterol 0.5-2.5 (3) MG/3ML Inhalation Four times a day 3 ml as needed for Shortness of breath 6h Active Zyrtec Allergy 10 MG Orally Once a day 1 tablet 24h Active Oxygen Active Topamax 100 mg Orally Twice a day 1 tablet 12h 30 Active Trulicity 0.75 MG/0.5ML Subcutaneous once weekly 0.5 ml Jun, 90 days Active RESULTS No Results PROCEDURES Procedure Date Ordered Result Body Site MEASURE BLOOD OXYGEN LEVEL Jan 12, 2017 INSTRUCTIONS MEDICATIONS ADMINISTERED No Known Medications MEDICAL (GENERAL) HISTORY Type Description Date Medical History COPD Medical History asthma Medical History heart cath Medical History Social phobia Medical History MRSA in right lung Medical History diabetes Surgical History heart cath 03/2015 Hospitalization History for surgeries Hospitalization History AMS 2/2 Benzos OD, pneumonia MRSA, [facility], Hypokalemia-- [facility] 12/20/2015 Hospitalization History COPD exacerbation, Asthma-[facility] 09/21/16 Hospitalization History COPD-[facility] 12/30/2016 Hospital[facility] History [facility] around 2006 or so. Hospitalization History for COPD x2 Mar 2017 Hospitalization History Upper GI bleed at apr 2017 Hospitalization History [facility]- COPD Exacerbation, diarrhea 05/23/2017 Hospitalization History COPD exacerbation-[facility] 06/13/17
[2017-08-23] MEDS ORDERED: LORazepam INJ 2 MG/ML (ATIVAN) VIAL ONE (21:12)
[2017-08-23] MEDS ORDERED: LORazepam INJ 2 MG/ML (ATIVAN) VIAL IVP ONE (21:15)
[2017-08-23 21:16] LABS: ALANINE AMINOTRANSFERASE 44 U/L (0-55); ALBUMIN 3.9 GM/DL (3.2-4.5); ALKALINE PHOSPHATASE 104 U/L (40-136); BILIRUBIN,TOTAL 0.9 MG/DL (0.1-1.0); BUN/CREATININE RATIO 8; CALCIUM 9.7 MG/DL (8.5-10.1); CARBON DIOXIDE 23 MMOL/L (21-32); CHLORIDE 107 MMOL/L (98-107); CREATININE SERUM 0.75 MG/DL (0.60-1.30); GFR ESTIMATED > 60; GLUCOSE 127 MG/DL (70-105); POTASSIUM 3.8 MMOL/L (3.6-5.0); SODIUM 141 MMOL/L (135-145)
[2017-08-23 21:17] LABS: LIPASE < 4 U/L (8-78); MAGNESIUM 1.5 MG/DL (1.8-2.4)
--- NOTE | 2017-08-23 21:48 | Diagnostic Imaging Report ---
INDICATION: Dyspnea. EXAMINATION: Upright portable AP view of the chest was obtained. COMPARISON: Study of 08/05/2017. FINDINGS: There is mild cardiomegaly. Air trapping is noted, bilaterally. There has been mild increase in pulmonary vascularity. There is blunting of the left costophrenic sulcus which may be due to pleural fluid or scarring. Overall, no other significant change is identified. IMPRESSION: Mild worsening of pulmonary venous congestion with background emphysema. There is continued blunting of the left gastric sulcus which may be due to pleural fluid, pleural thickening or unchanged infiltrate. Dictated by: Dictated on workstation # [id number]
[2017-08-23 21:56] VITALS: BP 137/97
[2017-08-23] MEDS ORDERED: PRD20T PO (22:01)
[2017-08-26] MEDS ORDERED: IPRA3AMP IH (16:05)
[2017-08-28] MEDS ORDERED: TIOT18CA2 IH (10:03)
[2017-08-28] MEDS ORDERED: FLUT1DIS26 IH (10:03)
[2017-08-28] MEDS ORDERED: DIPH25TA31 PO (10:03)
[2017-08-28] MEDS ORDERED: PRD20T PO (10:03)
== END 2017-08-23 22:12 | disposition home or self-care (01) ==
LOC: EDUNIT# 20:32 → ER 20:34
DX: J44.9 Chronic obstructive pulmonary disease, unspecified (principal); G43.909 Migraine, unspecified, not intractable, without status migrainosus; I10 Essential (primary) hypertension; E11.9 Type 2 diabetes mellitus without complications; F41.9 Anxiety disorder, unspecified; F31.9 Bipolar disorder, unspecified; F17.210 Nicotine dependence, cigarettes, uncomplicated; Z91.5 Personal history of self-harm; Z80.1 Family history of malignant neoplasm of trachea, bronchus and lung; Z82.49 Family history of ischemic heart disease and other diseases of the circulatory system; Z88.8 Allergy status to other drugs, medicaments and biological substances; Z79.51 Long term (current) use of inhaled steroids; Z87.19 Personal history of other diseases of the digestive system; Z79.84 Long term (current) use of oral hypoglycemic drugs; Z79.52 Long term (current) use of systemic steroids
CPT/HCPCS: 36415; 71045; 80053; 82805; 83690; 83735; 83880; 84484; 85025; 85610; 85730; 93005; 93041; 96374

== ENCOUNTER 2017-09-04 19:18 | Inpatient (IN) | payer OTHER ==
[~2017-09-04] VITALS: Ht 175.3 cm; Wt 103.5 kg
[~2017-09-04 19:18] MED LIST changes: -CLON1TAB3 PO; +CLON1TAB4 PO; +DIPH25TA31 PO; -IPRA3AMP IH; +IPRA3AMP31 IH
[2017-09-04] MEDS ORDERED: RT-ALBUTEROL/IPRATROPIUM 3 ML (DUONEB) VIAL INH ONE (19:30)
[2017-09-04] MEDS ORDERED: LORazepam INJ 2 MG/ML (ATIVAN) VIAL IVP ONE ×2 (19:30→19:45)
--- NOTE | 2017-09-04 19:32 | ED Dyspnea ---
General Chief Complaint: Respiratory Problems Stated Complaint: SOA Source of Information: Patient, EMS Exam Limitations: No Limitations History of Present Illness Date Seen by Provider: Sep 04, 2017 Time Seen by Provider: 19:27 Initial Comments To ER per EMS from home in [place] with difficulty breathing. Was here recently for COPD exacerbation recently. Reports last methamphetamine use was via oral ingestion "a few weeks ago". Does have swelling to upper eyelids and reported difficulty breathing to EMS en route to the hospital so EMS administered 0.3mg of Subcutaneous epinephrine and 50mg IM benadryl as they were unable to establish IV access despite multiple attempts. Timing/Duration: 4-6 Hours, Increasing Activities at Onset: None Associated Symptoms: Wheezing Allergies and Home Medications Allergies Coded Allergies: buspirone (Verified Allergy, Mild, 05/02/17) Made"legs Shaky" amitriptyline (Verified Allergy, Unknown, 05/02/17) " MAKES ME DO WEIRD THINGS LIKE WALK IN MY SLEEP AND HAVE HALLUCINATIONS." Home Medications Albuterol Sulfate 1 Puff Puff, 2 PUFF IH Q4H PRN for SHORTNESS OF BREATH, ( Reported) UNKNOWN LAST FILL DATE 1 PUFF = 90 MCG Diphenhydramine HCl 25 Mg Tablet, 25 MG PO Q4H PRN for ANXIETY Prescribed by: JAISON NORWOOD on 08/28/17 1003 Dulaglutide 0.75 Mg/0.5 Ml Pen.injctr, 0.75 MG SQ Th, (Reported) UNKNOWN LAST FILL DATE Fluticasone/Salmeterol 1 Each Blst.w.dev, 1 PUFF IH BID Prescribed by: JAISON NORWOOD on 08/28/17 1003 Glimepiride 1 Mg Tablet, 1 MG PO DAILY PRN for WHEN TAKING PREDNISONE, (Reported ) Ipratropium/Albuterol Sulfate 3 Ml Ampul.neb, 3 ML IH QID PRN for SHORTNESS OF BREATH, (Reported) HAS NOT PICKED UP YET Metoprolol Tartrate 25 Mg Tablet, 12.5 MG PO BID, (Reported) TAKES 1/2 (25MG) TABLET / LAST FILLED 04/16/17 #30 Prednisone 20 Mg Tab, 0 PO UD Take 6 tabs(60mg)daily, decrease by 1 tab(10mg) every other day. Prescribed by: JAISON NORWOOD on 08/28/17 1003 Tiotropium Loco 1 Inh Aerp, 1 CAP IH DAILY Prescribed by: JAISON NORWOOD on 08/28/17 1003 Patient Home Medication List Home Medication List Reviewed: Yes Constitutional: see HPI EENTM: see HPI Respiratory: see HPI, short of breath Cardiovascular: no symptoms reported Genitourinary: no symptoms reported Musculoskeletal: no symptoms reported Skin: no symptoms reported Psychiatric/Neurological: No Symptoms Reported Endocrine: No Symptoms Reported Past Fqxbrwn-Ictqsu-Bljdvy Hx Patient Social History Drug of Choice: +IV METH past hx Type Used: Cigarettes 2nd Hand Smoke Exposure: Yes Recent Hopitalizations: Yes Immunizations Up To Date Tetanus Booster (TDap): Unknown Date of Pneumonia Vaccine: Dec 08, 2011 Date of Influenza Vaccine: Dec 31, 2016 Seasonal Allergies Seasonal Allergies: No Past Medical History Surgeries: No Respiratory: Yes (O2 AT 2-3L/NC) Asthma, Sleep Apnea, COPD, Emphysema Currently Using CPAP: No Currently Using BIPAP: Yes (PT. STATED) Cardiac: Yes (HAD HEART CATH. 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 Sexually Transmitted Disease: No HIV/AIDS: No Genitourinary: No Gastrointestinal: Yes Chronic Constipation, Chronic Diarrhea Musculoskeletal: Yes (chronic shoulder and neck pain) Endocrine: Yes (DM- only while on steriods per pt) Diabetes, Non-Insulin dep HEENT: No Cancer: No Psychosocial: Yes Sleep Difficulties, Anxiety, Suicide Attempts, Bipolar, Depression Integumentary: No Blood Disorders: No Adverse Reaction/Blood Tranf: No Family Medical History Cancer 03 MOTHER, Onset:66 (LUNG ) 09 BROTHER (LUNG ) Congestive heart failure 03 FATHER Heart Disease, Cancer Physical Exam Vital Signs Vital Signs - First Documented 09/04/17 09/04/17 19:18 19:44 Temp 99.3 Pulse 124 Resp 25 B/P (MAP) 151/108 (122) Pulse Ox 97 O2 Delivery Nasal Cannula O2 Flow Rate 35.00 Capillary Refill : General Appearance: WD/WN, Anxious (Extremely anxious), Moderate Distress, Other (Unable to sit still, speaks in short phrases only. Sits upright, unable to lie flat. O2 saturation 97% on 4L of her own home O2. ) HEENT: PERRL/EOMI, TMs Normal, Other (Periorbital edema of both upper and lower eyelids. ) Neck: Full Range of Motion, Normal Inspection, JVD (minimal but present) Respiratory: Decreased Breath Sounds, Respiratory Distress Cardiovascular: Normal Peripheral Pulses, Tachycardia (110) Gastrointestinal: Normal Bowel Sounds, Non Tender, Soft Extremity: Normal Capillary Refill, Normal Inspection, No Pedal Edema Neurologic/Psychiatric: Alert, Oriented x3 Skin: Normal Color, Warm/Dry Focused Exam Lactate Level 09/04/17 19:23: Lactic Acid Level 1.43 Lactic Acid Level Laboratory Tests Test 09/04/17 19:23 Lactic Acid Level 1.43 MMOL/L (0.50-2.00) Progress/Results/Core Measures Results/Orders Lab Results Laboratory Tests Test 09/04/17 19:23 09/04/17 19:34 09/04/17 20:19 Range/Units White Blood Count 13.5 H 4.3-11.0 10^3/uL Red Blood Count 4.60 4.35-5.85 10^6/uL Hemoglobin 11.0 L 11.5-16.0 G/DL Hematocrit 35 35-52 % Mean Corpuscular Volume 76 L 80-99 FL Mean Corpuscular Hemoglobin 24 L 25-34 PG Mean Corpuscular Hemoglobin Concent 32 32-36 G/DL Red Cell Distribution Width 17.7 H 10.0-14.5 % Platelet Count 319 130-400 10^3/uL Mean Platelet Volume 11.0 H 7.4-10.4 FL Neutrophils (%) (Auto) 72 42-75 % Lymphocytes (%) (Auto) 18 12-44 % Monocytes (%) (Auto) 8 0-12 % Eosinophils (%) (Auto) 1 0-10 % Basophils (%) (Auto) 0 0-10 % Neutrophils # (Auto) 9.7 H 1.8-7.8 X 10^3 Lymphocytes # (Auto) 2.5 1.0-4.0 X 10^3 Monocytes # (Auto) 1.1 H 0.0-1.0 X 10^3 Eosinophils # (Auto) 0.1 0.0-0.3 10^3/uL Basophils # (Auto) 0.0 0.0-0.1 10^3/uL Sodium Level 142 135-145 MMOL/L Potassium Level 3.7 3.6-5.0 MMOL/L Chloride Level 106 98-107 MMOL/L Carbon Dioxide Level 25 21-32 MMOL/L Anion Gap 11 5-14 MMOL/L Blood Urea Nitrogen 11 7-18 MG/DL Creatinine 0.77 0.60-1.30 MG/DL Estimat Glomerular Filtration Rate > 60 BUN/Creatinine Ratio 14 Glucose Level 123 H 70-105 MG/DL Lactic Acid Level 1.43 0.50-2.00 MMOL/L Calcium Level 8.7 8.5-10.1 MG/DL Total Bilirubin 0.8 0.1-1.0 MG/DL Aspartate Amino Transf (AST/SGOT) 30 5-34 U/L Alanine Aminotransferase (ALT/SGPT) 131 H 0-55 U/L Alkaline Phosphatase 107 40-136 U/L B-Type Natriuretic Peptide 2345.4 H <100.0 PG/ML Total Protein 5.7 L 6.4-8.2 GM/DL Albumin 3.6 3.2-4.5 GM/DL Blood Gas Puncture Site RIGHT RADIAL Blood Gas Patient Temperature 99.3 Arterial Blood pH 7.44 H 7.37-7.43 Arterial Blood Partial Pressure CO2 40 35-45 MMHG Arterial Blood Partial Pressure O2 99 H 79-93 MMHG Arterial Blood HCO3 27 23-27 MMOL/L Arterial Blood Total CO2 27.8 21.0-31.0 MMOL/L Arterial Blood Oxygen Saturation 99 94-100 % Arterial Blood Base Excess 2.8 H -2.5-2.5 MMOL/L Torsten Test YES-POS Blood Gas Ventilator Setting NO Blood Gas Inspired Oxygen 35% Urine Color YELLOW Urine Clarity CLEAR Urine pH 6.5 5-9 Urine Specific Rumsey 1.010 L 1.016-1.022 Urine Protein NEGATIVE NEGATIVE Urine Glucose (UA) NEGATIVE NEGATIVE Urine Ketones NEGATIVE NEGATIVE Urine Nitrite NEGATIVE NEGATIVE Urine Bilirubin NEGATIVE NEGATIVE Urine Urobilinogen NORMAL NORMAL MG/DL Urine Leukocyte Esterase NEGATIVE NEGATIVE Urine RBC (Auto) NEGATIVE NEGATIVE Urine RBC RARE /HPF Urine WBC NONE /HPF Urine Squamous Epithelial Cells RARE /HPF Urine Crystals NONE /LPF Urine Bacteria NEGATIVE /HPF Urine Casts NONE /LPF Urine Mucus NEGATIVE /LPF Urine Culture Indicated NO Urine Opiates Screen NEGATIVE NEGATIVE Urine Oxycodone Screen NEGATIVE NEGATIVE Urine Methadone Screen NEGATIVE NEGATIVE Urine Propoxyphene Screen NEGATIVE NEGATIVE Urine Barbiturates Screen NEGATIVE NEGATIVE Ur Tricyclic Antidepressants Screen NEGATIVE NEGATIVE Urine Phencyclidine Screen NEGATIVE NEGATIVE Urine Amphetamines Screen NEGATIVE NEGATIVE Urine Methamphetamines Screen NEGATIVE NEGATIVE Urine Benzodiazepines Screen NEGATIVE NEGATIVE Urine Cocaine Screen NEGATIVE NEGATIVE Urine Cannabinoids Screen NEGATIVE NEGATIVE My Orders Orders - 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 ACE [employer]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 Cbc With Automated Diff (09/04/17 19:24) Comprehensive Metabolic Panel (09/04/17 19:24) Ua Culture If Indicated (09/04/17 19:24) Drug Screen Stat (Urine) (09/04/17 19:24) Iv Heplock-Insert (Order) (09/04/17 19:24) Arterial Blood Gas (09/04/17 19:24) Bipap (Bilevel) Set Up (09/04/17 19:24) Blood Culture (09/04/17 19:24) Lactic Acid Analyzer (09/04/17 19:24) BNP (09/04/17 19:24) Chest 1 View, Ap/Pa Only (09/04/17 19:24) Albuterol/Ipra Inhalation Soln (Duoneb I (09/04/17 19:30) Lorazepam Injection (Ativan Injection) (09/04/17 19:30) Svn Small Volume Nebulizer (09/04/17 19:24) Lorazepam Injection (Ativan Injection) (09/04/17 19:45) Arterial Blood Gas (09/04/17 19:38) Arterial Blood Draw (09/04/17 19:34) Furosemide Injection (Lasix Injection) (09/04/17 20:15) Ekg Tracing (09/04/17 21:54) Medications Given in ED Current Medications Medications Dose Ordered Sig/Vladimir Route Start Time Stop Time Status Last Admin Dose Admin Albuterol/ Ipratropium 3 ml ONCE ONCE INH 09/04/17 19:30 09/04/17 19:31 DC 09/04/17 19:44 3 ML Furosemide 40 mg ONCE ONCE IVP 09/04/17 20:15 09/04/17 20:16 DC 09/04/17 20:23 40 MG Lorazepam 1 mg ONCE ONCE IVP 09/04/17 19:30 09/04/17 19:31 DC 09/04/17 19:34 1 MG Lorazepam 1 mg ONCE ONCE IVP 09/04/17 19:45 09/04/17 19:46 DC 09/04/17 19:54 1 MG Vital Signs/I&O 09/04/17 09/04/17 19:18 19:44 Temp 99.3 Pulse 124 108 Resp 25 34 B/P (MAP) 151/108 (122) Pulse Ox 97 100 O2 Delivery Nasal Cannula O2 Flow Rate 35.00 Diagnostic Imaging Diagonstic Imaging: Xray Plain Films/CT/US/NM/MRI: chest Comments NAME: [facility] REC#: [id number] PT STATUS: REG ER : 1965 PHYSICIAN: ELLEN ACE APRN ADMIT DATE: 09/04/17/ER Draft Date of Exam:09/04/17 CHEST 1 VIEW, AP/PA ONLY INDICATION: Shortness of breath, swelling in the throat EXAMINATION: Single view chest 09/04/2017 COMPARISON: 08/26/2017 FINDINGS: There is cardiopulmonary. The pulmonary vasculature is congested. There are increased interstitial changes throughout both lungs and airspace opacities at the bases some of which could be due to superimposed soft tissues and technique, however, edema and/or bibasilar atelectasis or infiltrate also possible; correlate with symptoms. Small effusion on the left not excluded. IMPRESSION: 1. Marked cardiomegaly and pulmonary vascular congestion 2. Bibasilar opacities as noted above; correlate with symptoms. A small left effusion is possible. Dictated on workstation # [id number] Dict: 09/04/171999 Trans: 09/04/172013 SOFIYA [id number] Interpreted by: AJ WATTERS MD Electronically signed by: Departure Communication (Admissions) Time/Spoke to Admitting Phy: 21:[address] Norwood. We will admit, consult cardiology, Lasix. Time/Spoke to Consulting Phy: 22:[address] Auguste. He agrees to consult. An additional dose of Lasix 40 mg IV now and 2-D echocardiogram in the morning. 2211- she reports that she is feeling better at this time. Her respiratory rate has slowed, oxygen saturation 97% on BiPAP she overall appears much better. Impression Primary Impression: CHF (congestive heart failure) Additional Impressions: Dyspnea Anxiety Disposition: ADMITTED INPATIENT Condition: Stable Admissions Decision to Admit Reason: Admit from ER (General) Decision to Admit/Date: Sep 04, 2017 Time/Decision to Admit Time: 21:55 Departure-Patient Inst. Referrals: [facility] (PCP) Primary Care Physician ALIZA CARTER (Family) Primary Care Physician ELLEN ACE APRN Sep 04, 2017 19:32
[2017-09-04 19:33] LABS: BASOPHILS % (AUTO) 0 % (0-10); EOSINOPHILS # (AUTO) 0.1 10^3/uL (0.0-0.3); EOSINOPHILS % (AUTO) 1 % (0-10); HEMATOCRIT 35 % (35-52); LYMPHOCYTES # (AUTO) 2.5 X 10^3 (1.0-4.0); LYMPHOCYTES % (AUTO) 18 % (12-44); MEAN CORPUSCULAR HEMOGLOBIN 24 PG (25-34); MEAN CORPUSCULAR HGB CONC 32 G/DL (32-36); MEAN CORPUSCULAR VOLUME 76 FL (80-99); MONOCYTES # (AUTO) 1.1 X 10^3 (0.0-1.0); MONOCYTES % (AUTO) 8 % (0-12); NEUTROPHILS # (AUTO) 9.7 X 10^3 (1.8-7.8); NEUTROPHILS % (AUTO) 72 % (42-75); PLATELET COUNT 319 10^3/uL (130-400); RED CELL DISTRIBUTION WIDTH 17.7 % (10.0-14.5); WHITE BLOOD COUNT 13.5 10^3/uL (4.3-11.0)
[2017-09-04 19:49] LABS: ABG BASE EXCESS 2.8 MMOL/L (-2.5-2.5); ABG OXYGEN SATURATION 99 % (94-100); ABG PCO2 40 MMHG (35-45); ABG PH 7.44 (7.37-7.43); ABG PO2 99 MMHG (79-93); ABG TCO2 27.8 MMOL/L (21.0-31.0)
[2017-09-04 19:50] LABS: ALLENS TEST YES-POS
[2017-09-04 19:51] LABS: INSPIRED O2 35%; PATIENT TEMP 99.3; VENTILATOR NO
[2017-09-04 19:51] LABS: ALANINE AMINOTRANSFERASE 131 U/L (0-55); ALBUMIN 3.6 GM/DL (3.2-4.5); ALKALINE PHOSPHATASE 107 U/L (40-136); BILIRUBIN,TOTAL 0.8 MG/DL (0.1-1.0); BUN/CREATININE RATIO 14; CALCIUM 8.7 MG/DL (8.5-10.1); CARBON DIOXIDE 25 MMOL/L (21-32); CHLORIDE 106 MMOL/L (98-107); CREATININE SERUM 0.77 MG/DL (0.60-1.30); GFR ESTIMATED > 60; GLUCOSE 123 MG/DL (70-105); POTASSIUM 3.7 MMOL/L (3.6-5.0); SODIUM 142 MMOL/L (135-145); TOTAL PROTEIN 5.7 GM/DL (6.4-8.2)
--- NOTE | 2017-09-04 20:14 | Diagnostic Imaging Report ---
INDICATION: Shortness of breath, swelling in the throat EXAMINATION: Single view chest 09/04/2017 COMPARISON: 08/26/2017 FINDINGS: There is cardiopulmonary. The pulmonary vasculature is congested. There are increased interstitial changes throughout both lungs and airspace opacities at the bases some of which could be due to superimposed soft tissues and technique, however, edema and/or bibasilar atelectasis or infiltrate also possible; correlate with symptoms. Small effusion on the left not excluded. IMPRESSION: 1. Marked cardiomegaly and pulmonary vascular congestion 2. Bibasilar opacities as noted above; correlate with symptoms. A small left effusion is possible. Dictated by: Dictated on workstation # [id number]
[2017-09-04] MEDS ORDERED: FUROSEMIDE 40 MG/4 ML INJ (LASIX) IVP ONE ×2 (20:15→22:15)
[2017-09-04 20:27] LABS: BILIRUBIN,URINE NEGATIVE (NEGATIVE); CLARITY,URINE CLEAR; COLOR,URINE YELLOW; GLUCOSE, URINE (UA) NEGATIVE (NEGATIVE); KETONES,URINE NEGATIVE (NEGATIVE); LEUKOCYTE ESTERASE ,URINE NEGATIVE (NEGATIVE); NITRITE,URINE NEGATIVE (NEGATIVE); PH,URINE 6.5 (5-9); PROTEIN,URINE NEGATIVE (NEGATIVE); UROBILINOGEN,URINE NORMAL (NORMAL)
[2017-09-04 20:34] LABS: BACTERIA,URINE NEGATIVE /HPF; RBC,URINE RARE /HPF; SQUAMOUS EPITHELIAL CELL,UR RARE /HPF
[2017-09-04 20:35] LABS: AMPHETAMINE SCREEN, URINE NEGATIVE (NEGATIVE); BARBITURATE SCREEN URINE NEGATIVE (NEGATIVE); BENZODIAZEPINES SCREEN URINE NEGATIVE (NEGATIVE); CANNABINOID SCREEN, URINE NEGATIVE (NEGATIVE); COCAINE SCREEN URINE NEGATIVE (NEGATIVE); METHADONE STAT NEGATIVE (NEGATIVE); METHAMPHETAMINE SCREEN URINE S NEGATIVE (NEGATIVE); OPIATE SCREEN URINE NEGATIVE (NEGATIVE); OXYCODONE STAT NEGATIVE (NEGATIVE); PROPOXYPHENE STAT NEGATIVE (NEGATIVE); TRICYCLIC ANTIDEPRESSANTS SCRE NEGATIVE (NEGATIVE)
[2017-09-04 22:58] VITALS: BP 131/93
[2017-09-04 23:15] VITALS: BP 125/84
[2017-09-04 23:30] VITALS: BP 134/97
[2017-09-04 23:45] VITALS: BP 139/103
[2017-09-05] VITALS (27 sets, daily range): BP systolic 98–161; BP diastolic 45–106
[2017-09-05] MEDS ORDERED: RT-ALBUTEROL/IPRATROPIUM 3 ML (DUONEB) VIAL INH PRN (00:45)
[2017-09-05] MEDS: LORazepam INJ 2 MG/ML (ATIVAN) VIAL IV PRN ×3 (01:46→17:48)
[2017-09-05 03:32] LABS: BASOPHILS % (AUTO) 0 % (0-10); EOSINOPHILS # (AUTO) 0.2 10^3/uL (0.0-0.3); EOSINOPHILS % (AUTO) 2 % (0-10); HEMATOCRIT 37 % (35-52); HEMOGLOBIN 11.9 G/DL (11.5-16.0); LYMPHOCYTES # (AUTO) 2.7 X 10^3 (1.0-4.0); LYMPHOCYTES % (AUTO) 19 % (12-44); MEAN CORPUSCULAR HEMOGLOBIN 24 PG (25-34); MEAN CORPUSCULAR HGB CONC 32 G/DL (32-36); MEAN CORPUSCULAR VOLUME 75 FL (80-99); MEAN PLATELET VOLUME 11.2 FL (7.4-10.4); MONOCYTES # (AUTO) 1.1 X 10^3 (0.0-1.0); MONOCYTES % (AUTO) 8 % (0-12); NEUTROPHILS # (AUTO) 9.8 X 10^3 (1.8-7.8); NEUTROPHILS % (AUTO) 71 % (42-75); PLATELET COUNT 338 10^3/uL (130-400); RED BLOOD COUNT 4.94 10^6/uL (4.35-5.85); RED CELL DISTRIBUTION WIDTH 17.9 % (10.0-14.5); WHITE BLOOD COUNT 13.8 10^3/uL (4.3-11.0)
[2017-09-05 03:52] LABS: BUN/CREATININE RATIO 11; CARBON DIOXIDE 30 MMOL/L (21-32); CHLORIDE 99 MMOL/L (98-107); CREATININE SERUM 0.79 MG/DL (0.60-1.30); GFR ESTIMATED > 60; GLUCOSE 107 MG/DL (70-105); MAGNESIUM 1.6 MG/DL (1.8-2.4); PHOSPHORUS 3.9 MG/DL (2.3-4.7); POTASSIUM 3.4 MMOL/L (3.6-5.0); SODIUM 143 MMOL/L (135-145)
[2017-09-05] MEDS: MAGNESIUM 1 GM/100 ML IVPB 100 ML IV SCH ×3 (03:58→08:09)
[2017-09-05] MEDS: POTASSIUM CL 10MEQ/50ML IVPB 50 ML IV SCH (03:58)
[2017-09-05] MEDS: KCL 20 MEQ TAB (K-DUR) PO SCH (03:58)
[2017-09-05] MEDS ORDERED: KCL 20 MEQ TAB (K-DUR) PO ONE (06:00)
[2017-09-05] MEDS: predniSONE 20 MG TAB PO SCH (07:03)
[2017-09-05] MEDS: RT-ALBUTEROL/IPRATROPIUM 3 ML (DUONEB) VIAL INH SCH ×4 (07:42→18:40)
[2017-09-05] MEDS ORDERED: FUROSEMIDE 40 MG/4 ML INJ (LASIX) IVP SCH (09:00)
--- NOTE | 2017-09-05 10:27 | Consultation-Cardiology ---
HPI-Cardiology Cardiology Consultation Date of Consultation 09/05/17 Date of Admission Time Seen by Provider: 10:21 Indication: Shortness of breath, acute respiratory failure HPI 52 years old lady with history of congestive heart failure but has improved about 2 years ago. Was doing well until recently when she started having increasing shortness of breath with exertion progressed to significant dyspnea at rest. Came into the emergency room and was in respiratory failure. She has been having chest pain all over her chest. Denied any palpitation, no syncope or near syncopal episodes. Previously he had an echocardiogram with ejection fraction 25 percent that has improved over a year to about 50 percent. Last echo was done in 2016, currently still short of breath, on BiPAP, borderline hypotensive. Has been having chest pain, had a cardiac catheterization showing mild coronary artery disease. Home Medications & Allergies Allergies: Coded Allergies: buspirone (Verified Allergy, Mild, 05/02/17) Made"legs Shaky" amitriptyline (Verified Allergy, Unknown, 05/02/17) " MAKES ME DO WEIRD THINGS LIKE WALK IN MY SLEEP AND HAVE HALLUCINATIONS." Home Medication List Reviewed: Yes GEQ-Ijaiie-Firluc Hx Patient Social History Alcohol Use: Denies Use Recreational Drug Use: Yes (2 weeks ago) Drug of Choice: +IV METH past hx Smoking Status: Current Everyday Smoker Type Used: Cigarettes 2nd Hand Smoke Exposure: Yes Recent Foreign Travel: No Recent Infectious Disease Expo: No Recent Hopitalizations: Yes Physical Abuse Screen: No Sexual Abuse: No Immunizations Up To Date Tetanus Booster (TDap): Unknown Date of Pneumonia Vaccine: Dec 08, 2011 Date of Influenza Vaccine: Dec 31, 2016 Past Medical History Past medical history as described below Family Medical History Significant Family History: Heart Disease, Cancer Family History: Cancer 03 MOTHER, Onset:66 (LUNG ) 09 BROTHER (LUNG ) Congestive heart failure 03 FATHER Constitutional: see HPI, malaise, weakness EENTM: see HPI Respiratory: see HPI, cough, dyspnea on exertion, orthopnea, short of breath, wheezing Cardiovascular: see HPI, chest pain, edema Gastrointestinal: no symptoms reported, see HPI Genitourinary: no symptoms reported, see HPI Musculoskeletal: no symptoms reported, see HPI Skin: no symptoms reported, see HPI Psychiatric/Neurological: No Symptoms Reported, See HPI Reviewed Test Results Reviewed Test Results Lab Laboratory Tests Test 09/04/17 19:23 09/04/17 19:25 09/04/17 19:34 09/04/17 20:19 Range/Units White Blood Count 13.5 H 4.3-11.0 10^3/uL Red Blood Count 4.60 4.35-5.85 10^6/uL Hemoglobin 11.0 L 11.5-16.0 G/DL Hematocrit 35 35-52 % Mean Corpuscular Volume 76 L 80-99 FL Mean Corpuscular Hemoglobin 24 L 25-34 PG Mean Corpuscular Hemoglobin Concent 32 32-36 G/DL Red Cell Distribution Width 17.7 H 10.0-14.5 % Platelet Count 319 130-400 10^3/uL Mean Platelet Volume 11.0 H 7.4-10.4 FL Neutrophils (%) (Auto) 72 42-75 % Lymphocytes (%) (Auto) 18 12-44 % Monocytes (%) (Auto) 8 0-12 % Eosinophils (%) (Auto) 1 0-10 % Basophils (%) (Auto) 0 0-10 % Neutrophils # (Auto) 9.7 H 1.8-7.8 X 10^3 Lymphocytes # (Auto) 2.5 1.0-4.0 X 10^3 Monocytes # (Auto) 1.1 H 0.0-1.0 X 10^3 Eosinophils # (Auto) 0.1 0.0-0.3 10^3/uL Basophils # (Auto) 0.0 0.0-0.1 10^3/uL Sodium Level 142 135-145 MMOL/L Potassium Level 3.7 3.6-5.0 MMOL/L Chloride Level 106 98-107 MMOL/L Carbon Dioxide Level 25 21-32 MMOL/L Anion Gap 11 5-14 MMOL/L Blood Urea Nitrogen 11 7-18 MG/DL Creatinine 0.77 0.60-1.30 MG/DL Estimat Glomerular Filtration Rate > 60 BUN/Creatinine Ratio 14 Glucose Level 123 H 70-105 MG/DL Lactic Acid Level 1.43 0.50-2.00 MMOL/L Calcium Level 8.7 8.5-10.1 MG/DL Total Bilirubin 0.8 0.1-1.0 MG/DL Aspartate Amino Transf (AST/SGOT) 30 5-34 U/L Alanine Aminotransferase (ALT/SGPT) 131 H 0-55 U/L Alkaline Phosphatase 107 40-136 U/L B-Type Natriuretic Peptide 2345.4 H <100.0 PG/ML Total Protein 5.7 L 6.4-8.2 GM/DL Albumin 3.6 3.2-4.5 GM/DL Troponin I < 0.30 <0.30 NG/ML Blood Gas Puncture Site RIGHT RADIAL Blood Gas Patient Temperature 99.3 Arterial Blood pH 7.44 H 7.37-7.43 Arterial Blood Partial Pressure CO2 40 35-45 MMHG Arterial Blood Partial Pressure O2 99 H 79-93 MMHG Arterial Blood HCO3 27 23-27 MMOL/L Arterial Blood Total CO2 27.8 21.0-31.0 MMOL/L Arterial Blood Oxygen Saturation 99 94-100 % Arterial Blood Base Excess 2.8 H -2.5-2.5 MMOL/L Torsten Test YES-POS Blood Gas Ventilator Setting NO Blood Gas Inspired Oxygen 35% Urine Color YELLOW Urine Clarity CLEAR Urine pH 6.5 5-9 Urine Specific [place] 1.010 L 1.016-1.022 Urine Protein NEGATIVE NEGATIVE Urine Glucose (UA) NEGATIVE NEGATIVE Urine Ketones NEGATIVE NEGATIVE Urine Nitrite NEGATIVE NEGATIVE Urine Bilirubin NEGATIVE NEGATIVE Urine Urobilinogen NORMAL NORMAL MG/DL Urine Leukocyte Esterase NEGATIVE NEGATIVE Urine RBC (Auto) NEGATIVE NEGATIVE Urine RBC RARE /HPF Urine WBC NONE /HPF Urine Squamous Epithelial Cells RARE /HPF Urine Crystals NONE /LPF Urine Bacteria NEGATIVE /HPF Urine Casts NONE /LPF Urine Mucus NEGATIVE /LPF Urine Culture Indicated NO Urine Opiates Screen NEGATIVE NEGATIVE Urine Oxycodone Screen NEGATIVE NEGATIVE Urine Methadone Screen NEGATIVE NEGATIVE Urine Propoxyphene Screen NEGATIVE NEGATIVE Urine Barbiturates Screen NEGATIVE NEGATIVE Ur Tricyclic Antidepressants Screen NEGATIVE NEGATIVE Urine Phencyclidine Screen NEGATIVE NEGATIVE Urine Amphetamines Screen NEGATIVE NEGATIVE Urine Methamphetamines Screen NEGATIVE NEGATIVE Urine Benzodiazepines Screen NEGATIVE NEGATIVE Urine Cocaine Screen NEGATIVE NEGATIVE Urine Cannabinoids Screen NEGATIVE NEGATIVE Test 09/05/17 03:10 09/05/17 03:20 Range/Units White Blood Count 13.8 H 4.3-11.0 10^3/uL Red Blood Count 4.94 4.35-5.85 10^6/uL Hemoglobin 11.9 11.5-16.0 G/DL Hematocrit 37 35-52 % Mean Corpuscular Volume 75 L 80-99 FL Mean Corpuscular Hemoglobin 24 L 25-34 PG Mean Corpuscular Hemoglobin Concent 32 32-36 G/DL Red Cell Distribution Width 17.9 H 10.0-14.5 % Platelet Count 338 130-400 10^3/uL Mean Platelet Volume 11.2 H 7.4-10.4 FL Neutrophils (%) (Auto) 71 42-75 % Lymphocytes (%) (Auto) 19 12-44 % Monocytes (%) (Auto) 8 0-12 % Eosinophils (%) (Auto) 2 0-10 % Basophils (%) (Auto) 0 0-10 % Neutrophils # (Auto) 9.8 H 1.8-7.8 X 10^3 Lymphocytes # (Auto) 2.7 1.0-4.0 X 10^3 Monocytes # (Auto) 1.1 H 0.0-1.0 X 10^3 Eosinophils # (Auto) 0.2 0.0-0.3 10^3/uL Basophils # (Auto) 0.0 0.0-0.1 10^3/uL Sodium Level 143 135-145 MMOL/L Potassium Level 3.4 L 3.6-5.0 MMOL/L Chloride Level 99 98-107 MMOL/L Carbon Dioxide Level 30 21-32 MMOL/L Anion Gap 14 5-14 MMOL/L Blood Urea Nitrogen 9 7-18 MG/DL Creatinine 0.79 0.60-1.30 MG/DL Estimat Glomerular Filtration Rate > 60 BUN/Creatinine Ratio 11 Glucose Level 107 H 70-105 MG/DL Calcium Level 9.0 8.5-10.1 MG/DL Phosphorus Level 3.9 2.3-4.7 MG/DL Magnesium Level 1.6 L 1.8-2.4 MG/DL B-Type Natriuretic Peptide 2108.3 H <100.0 PG/ML Physical Exam Vital Signs Vital Signs - First Documented 09/04/17 09/04/17 09/04/17 19:18 19:44 23:00 Temp 99.3 Pulse 124 Resp 25 B/P (MAP) 151/108 (122) Pulse Ox 97 O2 Delivery Nasal Cannula O2 Flow Rate 35.00 FiO2 35 Capillary Refill : Less Than 3 Seconds General Appearance: No Apparent Distress, WD/WN, Severe Distress Eyes: Bilateral Eye Normal Inspection, Bilateral Eye PERRL, Bilateral Eye EOMI HEENT: PERRL/EOMI, TMs Normal, Normal ENT Inspection, Pharynx Normal Neck: Full Range of Motion, Normal Inspection, Non Tender, Supple, Carotid Bruit, JVD Respiratory: Chest Non Tender, Crackles, Decreased Breath Sounds, Inspiration, Respiratory Distress Cardiovascular: Regular Rate, Rhythm, No Edema, No JVD, No Murmur, Normal Peripheral Pulses, Gallop/S3 Gastrointestinal: Normal Bowel Sounds, No Organomegaly, No Pulsatile Mass, Non Tender, Soft Back: Normal Inspection, No CVA Tenderness, No Vertebral Tenderness Extremity: Normal Capillary Refill, Normal Inspection, Normal Range of Motion, Non Tender, No Calf Tenderness, No Pedal Edema Neurologic/Psychiatric: Alert, Oriented x3, No Motor/Sensory Deficits, Normal Mood/Affect Skin: Normal Color, Warm/Dry Lymphatic: No Adenopathy A/P-Cardiology Admission Diagnosis Acute respiratory failure Pulmonary edema Congestive heart failure, acute left ventricular systolic dysfunction, nonischemic cardiomyopathy Noncompliance with medication Assessment/Plan Acute respiratory failure, flash pulmonary edema, congestive heart failure, responding to diuretics slowly, had about 5.5 L of urine output. Continue with diuresis and monitor electrolytes and BNP. Congestive heart failure, acute left ventricular systolic dysfunction, nonischemic cardiomyopathy, had a cardiac catheterization done in 2014 showing minor coronary arteries, cardiac enzymes are negative. I will initiate treatment at this point. History of bradycardia with episode of transient complete heart block, occurred in 2014. I will continue monitoring and use low-dose beta blockers cautiously and evaluate her tolerance and response. Hypertension, currently borderline hypotensive secondary to aggressive diuresis and medication, continue to monitor closely. COPD, has history of extensive COPD. Active smoker. I will consult Dr. Trivedi. History of intermittent methamphetamine use. Has used it recently. Last urine drug screen was negative Obesity, BMI is 32, patient is at increased risk of sleep apnea.. History of noncompliance with medications. History of anxiety, depression. History of diabetes mellitus, not taking any medication, controlled by diet according to the patient. Clinical Quality Measures DVT/VTE Risk/Contraindication: Risk Factor Score Per Nursin RFS Level Per Nursing on Admit: 3=High FRANCESCO GOULD MD Sep 05, 2017 10:27
--- NOTE | 2017-09-05 11:34 | Diagnostic Imaging Report ---
EXAMINATION: Portable erect AP chest at 02:35 a.m. INDICATION: Dyspnea. FINDINGS: The cardiomegaly noted on the prior exam of 09/04/2017 is again evident and not significantly changed. However, the central pulmonary vascularity does not seem as prominent as on the prior exam. A small amount of fluid is still present in the left lung base and a small amount of fluid has developed in the right lung base. There may be mild right lower lobe atelectasis/infiltrate as well. The upper lungs are clear. The mediastinum is not widened. The osseous structures are intact. IMPRESSION: The appearance of the chest has improved as there does appear to be less pulmonary congestion. A follow-up exam will be recommended for continued evaluation. Dictated by: Dictated on workstation # [id number]
[2017-09-05] MEDS: ENOXAPARIN 40 MG/0.4 ML (LOVENOX) SYR SQ SCH (12:10)
[2017-09-05] MEDS ORDERED: PRD10T PO (13:14)
[2017-09-05] MEDS ORDERED: GLIMEPIRIDE 1 MG (AMARYL) TAB PO PRN (15:15)
--- NOTE | 2017-09-05 15:20 | History & Physicial ([facility]) ---
HPI History of Present Illness: 52 yo female with COPD and severe anxiety presented to ER with worsening shortness of breath for 2 days. She was recently discharged after an admission for COPD exacerbation and reports she was taking all of her medications and inhalers and was doing pretty well on Thursday and Thursday of this week, but Thursday became more short of breath again. She denies fever. She states she has non-productive cough that is worse than her usual cough. She also complains of diffuse body pain in all her joints and muscles, she feels "tight". She had nausea and vomiting on Thursday and , hasn't vomited since , but continued to have nausea. She denies history of heart failure and reports normal catheterization a few years ago, does not recall having an abnormal echocardiogram in the past. Source: patient Date seen by provider: Sep 05, 2017 Time Seen by Provider: 10:01 Attending Physician Jaison Martinez MD [facility] [place] Consult Date of Admission Sep 04, 2017 at 21:59 Home Medications Home Medications Reviewed patient Home Medication Reconciliation performed by pharmacy medication reconciliations mixing technician and/or nursing. Patients Allergies have been reviewed. Allergies Coded Allergies: buspirone (Verified Allergy, Mild, 05/02/17) Made"legs Shaky" amitriptyline (Verified Allergy, Unknown, 05/02/17) " MAKES ME DO WEIRD THINGS LIKE WALK IN MY SLEEP AND HAVE HALLUCINATIONS." [id number] Hx Patient Social History Alcohol Use: Denies Use Recreational Drug Use: Yes (2 weeks ago) Drug of Choice: +IV METH past hx Smoking Status: Current Everyday Smoker Type Used: Cigarettes 2nd Hand Smoke Exposure: Yes Recent Foreign Travel: No Contact w/other who traveled: No Recent Hopitalizations: Yes Recent Infectious Disease Expo: No Physical Abuse Screen: No Sexual Abuse: No Immunizations Up To Date Tetanus Booster (TDap): Unknown Date of Pneumonia Vaccine: Dec 08, 2011 Date of Influenza Vaccine: Dec 31, 2016 Past Medical History Past Medical History 1. HTN 2. COPD 3. Tobaccoism 4.Chronic Migraines- with rebound headaches secondary to overuse of tylenol and ibuprofen 5. Anxiety 6. Depression 7. Endometrial hypertrophy 8. DMII 9. HLP- with elevated triglycerides 10. Chronic Insomnia 11. Gastritis 12. Methamphetamine abuse 13. Several admissions for overdose of benzodiazapine 14. Acute systolic heart failure 2014 Past Surgical History 1. EGD- Gastritis [facility] 2. Colonoscopy- [facility] Family Medical History Significant Family History: Heart Disease, Cancer Family History: Cancer 03 MOTHER, Onset:66 (LUNG ) 09 BROTHER (LUNG ) Congestive heart failure 03 FATHER Review of Systems ([facility]) Constitutional: see HPI EENTM: No nose congestion Respiratory: see HPI Cardiovascular: No chest pain Gastrointestinal: see HPI Genitourinary: no symptoms reported Musculoskeletal: see HPI Skin: No rash Psychiatric/Neurological: Anxiety Reviewed Test Results Reviewed Test Results Lab Laboratory Tests Test 09/04/17 19:23 09/04/17 19:25 09/04/17 19:34 09/04/17 20:19 Range/Units White Blood Count 13.5 H 4.3-11.0 10^3/uL Red Blood Count 4.60 4.35-5.85 10^6/uL Hemoglobin 11.0 L 11.5-16.0 G/DL Hematocrit 35 35-52 % Mean Corpuscular Volume 76 L 80-99 FL Mean Corpuscular Hemoglobin 24 L 25-34 PG Mean Corpuscular Hemoglobin Concent 32 32-36 G/DL Red Cell Distribution Width 17.7 H 10.0-14.5 % Platelet Count 319 130-400 10^3/uL Mean Platelet Volume 11.0 H 7.4-10.4 FL Neutrophils (%) (Auto) 72 42-75 % Lymphocytes (%) (Auto) 18 12-44 % Monocytes (%) (Auto) 8 0-12 % Eosinophils (%) (Auto) 1 0-10 % Basophils (%) (Auto) 0 0-10 % Neutrophils # (Auto) 9.7 H 1.8-7.8 X 10^3 Lymphocytes # (Auto) 2.5 1.0-4.0 X 10^3 Monocytes # (Auto) 1.1 H 0.0-1.0 X 10^3 Eosinophils # (Auto) 0.1 0.0-0.3 10^3/uL Basophils # (Auto) 0.0 0.0-0.1 10^3/uL Sodium Level 142 135-145 MMOL/L Potassium Level 3.7 3.6-5.0 MMOL/L Chloride Level 106 98-107 MMOL/L Carbon Dioxide Level 25 21-32 MMOL/L Anion Gap 11 5-14 MMOL/L Blood Urea Nitrogen 11 7-18 MG/DL Creatinine 0.77 0.60-1.30 MG/DL Estimat Glomerular Filtration Rate > 60 BUN/Creatinine Ratio 14 Glucose Level 123 H 70-105 MG/DL Lactic Acid Level 1.43 0.50-2.00 MMOL/L Calcium Level 8.7 8.5-10.1 MG/DL Total Bilirubin 0.8 0.1-1.0 MG/DL Aspartate Amino Transf (AST/SGOT) 30 5-34 U/L Alanine Aminotransferase (ALT/SGPT) 131 H 0-55 U/L Alkaline Phosphatase 107 40-136 U/L B-Type Natriuretic Peptide 2345.4 H <100.0 PG/ML Total Protein 5.7 L 6.4-8.2 GM/DL Albumin 3.6 3.2-4.5 GM/DL Troponin I < 0.30 <0.30 NG/ML Blood Gas Puncture Site RIGHT RADIAL Blood Gas Patient Temperature 99.3 Arterial Blood pH 7.44 H 7.37-7.43 Arterial Blood Partial Pressure CO2 40 35-45 MMHG Arterial Blood Partial Pressure O2 99 H 79-93 MMHG Arterial Blood HCO3 27 23-27 MMOL/L Arterial Blood Total CO2 27.8 21.0-31.0 MMOL/L Arterial Blood Oxygen Saturation 99 94-100 % Arterial Blood Base Excess 2.8 H -2.5-2.5 MMOL/L Torsten Test YES-POS Blood Gas Ventilator Setting NO Blood Gas Inspired Oxygen 35% Urine Color YELLOW Urine Clarity CLEAR Urine pH 6.5 5-9 Urine Specific [place] 1.010 L 1.016-1.022 Urine Protein NEGATIVE NEGATIVE Urine Glucose (UA) NEGATIVE NEGATIVE Urine Ketones NEGATIVE NEGATIVE Urine Nitrite NEGATIVE NEGATIVE Urine Bilirubin NEGATIVE NEGATIVE Urine Urobilinogen NORMAL NORMAL MG/DL Urine Leukocyte Esterase NEGATIVE NEGATIVE Urine RBC (Auto) NEGATIVE NEGATIVE Urine RBC RARE /HPF Urine WBC NONE /HPF Urine Squamous Epithelial Cells RARE /HPF Urine Crystals NONE /LPF Urine Bacteria NEGATIVE /HPF Urine Casts NONE /LPF Urine Mucus NEGATIVE /LPF Urine Culture Indicated NO Urine Opiates Screen NEGATIVE NEGATIVE Urine Oxycodone Screen NEGATIVE NEGATIVE Urine Methadone Screen NEGATIVE NEGATIVE Urine Propoxyphene Screen NEGATIVE NEGATIVE Urine Barbiturates Screen NEGATIVE NEGATIVE Ur Tricyclic Antidepressants Screen NEGATIVE NEGATIVE Urine Phencyclidine Screen NEGATIVE NEGATIVE Urine Amphetamines Screen NEGATIVE NEGATIVE Urine Methamphetamines Screen NEGATIVE NEGATIVE Urine Benzodiazepines Screen NEGATIVE NEGATIVE Urine Cocaine Screen NEGATIVE NEGATIVE Urine Cannabinoids Screen NEGATIVE NEGATIVE Test 09/05/17 03:10 09/05/17 03:20 Range/Units White Blood Count 13.8 H 4.3-11.0 10^3/uL Red Blood Count 4.94 4.35-5.85 10^6/uL Hemoglobin 11.9 11.5-16.0 G/DL Hematocrit 37 35-52 % Mean Corpuscular Volume 75 L 80-99 FL Mean Corpuscular Hemoglobin 24 L 25-34 PG Mean Corpuscular Hemoglobin Concent 32 32-36 G/DL Red Cell Distribution Width 17.9 H 10.0-14.5 % Platelet Count 338 130-400 10^3/uL Mean Platelet Volume 11.2 H 7.4-10.4 FL Neutrophils (%) (Auto) 71 42-75 % Lymphocytes (%) (Auto) 19 12-44 % Monocytes (%) (Auto) 8 0-12 % Eosinophils (%) (Auto) 2 0-10 % Basophils (%) (Auto) 0 0-10 % Neutrophils # (Auto) 9.8 H 1.8-7.8 X 10^3 Lymphocytes # (Auto) 2.7 1.0-4.0 X 10^3 Monocytes # (Auto) 1.1 H 0.0-1.0 X 10^3 Eosinophils # (Auto) 0.2 0.0-0.3 10^3/uL Basophils # (Auto) 0.0 0.0-0.1 10^3/uL Sodium Level 143 135-145 MMOL/L Potassium Level 3.4 L 3.6-5.0 MMOL/L Chloride Level 99 98-107 MMOL/L Carbon Dioxide Level 30 21-32 MMOL/L Anion Gap 14 5-14 MMOL/L Blood Urea Nitrogen 9 7-18 MG/DL Creatinine 0.79 0.60-1.30 MG/DL Estimat Glomerular Filtration Rate > 60 BUN/Creatinine Ratio 11 Glucose Level 107 H 70-105 MG/DL Calcium Level 9.0 8.5-10.1 MG/DL Phosphorus Level 3.9 2.3-4.7 MG/DL Magnesium Level 1.6 L 1.8-2.4 MG/DL B-Type Natriuretic Peptide 2108.3 H <100.0 PG/ML Radiology IMPRESSION: 1. Marked cardiomegaly and pulmonary vascular congestion 2. Bibasilar opacities as noted above; correlate with symptoms. A small left effusion is possible. Physical Exam-([facility]) Physical Exam Vital Signs VS - Last 72 Hours, by Label 09/04/17 09/04/17 09/04/17 09/04/17 19:18 19:44 22:22 22:50 Temp 99.3 Pulse 124 108 101 101 Resp 25 34 28 25 B/P (MAP) 151/108 (122) 129/93 Pulse Ox 97 100 98 97 O2 Delivery Nasal Cannula NIV Bilevel O2 Flow Rate 35.00 35.00 09/04/17 09/04/17 09/04/17 09/04/17 22:58 23:00 23:00 23:00 Temp 97.8 Pulse 106 103 102 Resp 24 27 B/P (MAP) 131/93 (106) Pulse Ox 100 100 100 O2 Delivery NIV Bilevel NIV Bilevel NIV Bilevel O2 Flow Rate 35.00 35.00 FiO2 35 09/04/17 09/04/17 09/04/17 09/05/17 23:15 23:30 23:45 00:00 Pulse 101 102 101 Resp 20 26 24 B/P (MAP) 125/84 (98) 134/97 (109) 139/103 (115) Pulse Ox 98 99 99 99 O2 Delivery NIV Bilevel NIV Bilevel NIV Bilevel NIV Bilevel O2 Flow Rate 35.00 35.00 35.00 FiO2 35 09/05/18 09/05/17 09/05/17 09/05/17 00:00 00:01 00:39 01:00 Temp 97.8 Pulse 105 105 108 Resp 19 28 B/P (MAP) 142/105 (117) 135/96 (109) Pulse Ox 99 99 100 O2 Delivery NIV Bilevel NIV Bilevel O2 Flow Rate 35.00 35.00 FiO2 35 09/05/09/05/17 09/05/17 09/05/17 01:05 02:00 02:45 03:00 Pulse 108 105 108 108 Resp 26 32 28 B/P (MAP) 117/83 (94) 132/101 (111) Pulse Ox 98 100 99 O2 Delivery NIV Bilevel NIV Bilevel O2 Flow Rate 35.00 35.00 35.00 18 09/05/17 09/05/17 09/05/17 04:00 04:00 04:01 05:00 Temp 98.9 Pulse 103 102 Resp 23 25 B/P (MAP) 115/72 (86) 133/94 (107) Pulse Ox 99 96 97 O2 Delivery Nasal Cannula Nasal Cannula Nasal Cannula Nasal Cannula O2 Flow Rate 3.00 3.00 3.00 3.00 09/05/17 09/05/17 09/05/17 09/05/17 06:00 06:59 07:00 07:00 Pulse 105 111 112 Resp 32 24 B/P (MAP) 125/80 (95) 101/77 (85) Pulse Ox 96 94 O2 Delivery Nasal Cannula Nasal Cannula Nasal Cannula O2 Flow Rate 3.00 3.00 3.00 09/05/17 09/05/17 09/05/17 09/05/17 07:45 08:00 08:22 08:22 Temp 98.2 Pulse 104 Resp 23 B/P (MAP) 130/96 (107) Pulse Ox 98 98 O2 Delivery Nasal Cannula NIV Bilevel NIV Bilevel NIV Bilevel O2 Flow Rate 3.00 35.00 35.00 FiO2 35 09/05/17 09/05/17 09/05/17 09/05/17 09:00 10:00 11:00 11:25 Pulse 98 101 101 Resp 26 25 23 B/P (MAP) 128/95 (106) 110/79 (89) 120/77 (91) Pulse Ox 97 95 94 O2 Delivery NIV Bilevel NIV Bilevel NIV Bilevel Nasal Cannula O2 Flow Rate 35.00 35.00 35.00 3.00 09/05/17 09/05/17 09/05/17 09/05/17 12:10 12:10 13:00 14:28 Temp 97.4 Pulse 101 O2 Delivery Nasal Cannula Nasal Cannula Nasal Cannula O2 Flow Rate 3.00 3.00 3.00 Capillary Refill : Less Than 3 Seconds General Appearance: mild distress Respiratory: decreased breath sounds, rhonchi, wheezing Cardiovascular: no murmur, tachycardia Gastrointestinal: normal bowel sounds, non tender, soft Extremities: no pedal edema Neurologic/Psychiatric: alert Skin: normal color, warm/dry Assessment/Plan Assessment/Plan Admission Dx Acute systolic congestive heart failure Admission Status: Inpatient Order (span 2 midnights) Reason for Inpatient Admission: Acute systolic heart failure with multiple comorbidities requiring complex medical management (1) CHF (congestive heart failure) Status: Acute Assessment & Plan: Markedly elevated BNP on admission along with vascular congestion on chest x-ray. Although patient reported no known history of heart failure, she had similar acute congestive heart failure episode 3 years ago on chart review. -Cardiology consult, appreciate recommendations -IV lasix Qualifiers: Qualified Codes: I50.21 - Acute systolic (congestive) heart failure (2) COPD with exacerbation Status: Acute Assessment & Plan: Unclear if exacerbation persistent at this time, will not increase home steroids as it appears her dyspnea is more related to her fluid overload and she has history of relatively recent GI bleed would prefer to minimize steroid use. -RT protocol, home inhaled LABA/steroid, was on prednisone taper outpatient, received 20 mg today, will confirm where in taper she is and dose appropriately (3) Hyperglycemia Status: Acute Assessment & Plan: Has elevated blood sugars when on steroids. -Diabetic diet, blood sugar achs and sliding scale insulin. Home glimeperide. (4) History of GI bleed Status: Chronic Assessment & Plan: Monitor hemoglobin closely (5) Anxiety Status: Chronic Assessment & Plan: Has failed multiple treatments and declines Behavioral Health at this time. Requesting lorazepam IV inpatient. -IV lorazepam as needed during acute shortness of air episodes, will try to minimize as she will not be discharged with them due to history of overdose and substance abuse (6) DVT prophylaxis Status: Acute Assessment & Plan: Enoxaparin Clinical Quality Measures DVT/VTE Risk/Contraindication: Risk Factor Score Per Nursin RFS Level Per Nursing on Admit: 3=High JAISON MARTINEZ MD Sep 05, 2017 15:20
--- NOTE | 2017-09-05 16:43 | Pulmonary Consultation ---
History of Present Illness History of Present Illness Date of Consultation 09/05/17 16:38 Time Seen by Provider: 16:38 Date of Admission Reason for Visit: Shortness of breath, acute respiratory failure History of Present Illness 52yo with hx of severe COPD, Methampetamine use, persistent tobacco dependance, and medical noncompliance presented to ED secondary to progressive SOB x 2 days. Patient has multiple hospitalizations for COPDAE. No fever however patient did have Nausea and vomiting on Thursday and . Dr. Auguste is consulting me for pulmonary/ICU management. Allergies and Home Medications Allergies Coded Allergies: buspirone (Verified Allergy, Mild, 05/02/17) Made"legs Shaky" amitriptyline (Verified Allergy, Unknown, 05/02/17) " MAKES ME DO WEIRD THINGS LIKE WALK IN MY SLEEP AND HAVE HALLUCINATIONS." Home Medications Albuterol Sulfate 1 Puff Puff, 2 PUFF IH Q4H PRN for SHORTNESS OF BREATH, ( Reported) UNKNOWN LAST FILL DATE 1 PUFF = 90 MCG Diphenhydramine HCl 25 Mg Tablet, 25 MG PO Q4H PRN for ANXIETY Prescribed by: JAISON NORWOOD on 08/28/17 1003 Dulaglutide 0.75 Mg/0.5 Ml Pen.injctr, 0.75 MG SQ Th, (Reported) UNKNOWN LAST FILL DATE Fluticasone/Salmeterol 1 Each Blst.w.dev, 1 PUFF IH BID Prescribed by: JAISON NORWOOD on 08/28/17 1003 Glimepiride 1 Mg Tablet, 1 MG PO DAILY PRN for WHEN TAKING PREDNISONE, (Reported ) Ipratropium/Albuterol Sulfate 3 Ml Ampul.neb, 3 ML IH QID PRN for SHORTNESS OF BREATH, (Reported) HAS NOT PICKED UP YET Metoprolol Tartrate 25 Mg Tablet, 12.5 MG PO BID, (Reported) TAKES 1/2 (25MG) TABLET / LAST FILLED 04/16/17 #30 Prednisone 10 Mg Tab, 0 PO UD, (Reported) Take 3 tabs(30mg)daily, decrease by 1 tab(10mg) every other day. The patient is on Day 8 of 12 day taper. Tiotropium Herald 1 Inh Aerp, 1 CAP IH DAILY Prescribed by: JAISON NORWOOD on 6/22/18 1003 Past Zzuwhps-Ogewje-Pmzkhk Hx Patient Social History Alcohol Use: Denies Use Recreational Drug Use: Yes (2 weeks ago) Drug of Choice: +IV METH past hx Smoking Status: Current Everyday Smoker Type Used: Cigarettes 2nd Hand Smoke Exposure: Yes Recent Foreign Travel: No Contact w/Someone Who Travel: No Recent Infectious Disease Expo: No Recent Hopitalizations: Yes Immunizations Up To Date Tetanus Booster (TDap): Unknown Date of Pneumonia Vaccine: Dec 08, 2011 Date of Influenza Vaccine: Dec 31, 2016 Seasonal Allergies Seasonal Allergies: No Past Medical History Surgeries: No Respiratory: Yes (O2 AT 2-3L/NC) Asthma, Sleep Apnea, COPD, Emphysema Currently Using CPAP: No Currently Using BIPAP: Yes (PT. STATED) Cardiac: Yes (HAD HEART CATH. 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 Disorders: Denies SNOW BLOWER History: Menopausal Sexually Transmitted Disease: No HIV/AIDS: No Genitourinary: No Gastrointestinal: Yes Chronic Constipation, Chronic Diarrhea Musculoskeletal: Yes (chronic shoulder and neck pain) Endocrine: Yes (DM- only while on steriods per pt) Diabetes, Non-Insulin dep HEENT: No Cancer: No Psychosocial: Yes Sleep Difficulties, Anxiety, Suicide Attempts, Bipolar, Depression Integumentary: No Blood Disorders: No Adverse Reaction/Blood Tranf: No Family Medical History Cancer 03 MOTHER, Onset:66 (LUNG ) 09 BROTHER (LUNG ) Congestive heart failure 03 FATHER Heart Disease, Cancer Review of Systems Time Seen by Provider: 16:53 Constitutional: Sweats, Weakness, Malaise; No: Fever, Chills, Other Eyes: No: Pain, Vision change, Conjunctivae inflammation, Eyelid inflammation, Other, Redness ENT: Nose congestion; No: Ear pain, Ear discharge, Nose pain, Nose discharge, Mouth pain, Mouth swelling, Throat pain, Throat swelling, Other Respiratory: Cough, Dry, Shortness of breath, SOB with excertion, Wheezing Cardiovascular: Orthopnea, Paroxysmal Noc. Dyspnea, Edema; No: Chest Pain, Palpitations, Lt Headedness, Other Gastrointestinal: Nausea, Vomiting; No: Abdominal Pain, Diarrhea, Constipation , Melena, Hematochezia, Other Genitourinary: No Dysuria, No Frequency, No Incontinence, No Hematuria, No Retention, No Other Neurological: Weakness Exam Exam Vital Signs Date Time Temp Pulse Resp B/P (MAP) Pulse Ox O2 Delivery O2 Flow Rate FiO2 09/05/17 16:00 105 23 123/95 (104) 93 Nasal Cannula 3.00 09/05/17 15:00 108 19 115/82 (93) 91 Nasal Cannula 3.00 09/05/17 14:28 Nasal Cannula 3.00 09/05/17 14:00 108 27 98/84 (89) 93 Nasal Cannula 3.00 09/05/17 13:00 102 23 116/93 (101) 93 Nasal Cannula 3.00 09/05/17 13:00 101 09/05/17 12:10 Nasal Cannula 3.00 09/05/17 12:10 97.4 Nasal Cannula 3.00 09/05/17 12:00 105 23 103/78 (86) 95 Nasal Cannula 3.00 09/05/17 11:25 Nasal Cannula 3.00 09/05/17 11:00 101 23 120/77 (91) 94 Nasal Cannula 3.00 09/05/17 10:00 101 25 110/79 (89) 95 NIV Bilevel 35.00 09/05/17 09:00 98 26 128/95 (106) 97 NIV Bilevel 35.00 09/05/17 08:22 98.2 98 NIV Bilevel 35.00 09/05/17 08:22 NIV Bilevel 35 09/05/17 08:00 104 23 130/96 (107) 98 NIV Bilevel 35.00 09/05/17 07:45 Nasal Cannula 3.00 09/05/17 07:00 112 24 101/77 (85) 94 Nasal Cannula 3.00 09/05/17 07:00 111 09/05/17 06:59 Nasal Cannula 3.00 09/05/17 06:00 105 32 125/80 (95) 96 Nasal Cannula 3.00 09/05/17 05:00 102 25 133/94 (107) 97 Nasal Cannula 3.00 09/05/17 04:01 98.9 Nasal Cannula 3.00 09/05/17 04:00 103 23 115/72 (86) 96 Nasal Cannula 3.00 09/05/17 04:00 99 Nasal Cannula 3.00 09/05/17 03:00 108 28 132/101 (111) 99 NIV Bilevel 35.00 09/05/17 02:45 108 32 100 35.00 09/05/17 02:00 105 26 117/83 (94) 98 NIV Bilevel 35.00 09/05/17 01:05 108 09/05/17 01:00 108 28 135/96 (109) 100 NIV Bilevel 35.00 09/05/17 00:39 105 99 35 09/05/17 00:01 97.8 09/05/17 00:00 105 19 142/105 (117) 99 NIV Bilevel 35.00 09/05/17 00:00 99 NIV Bilevel 35 09/04/17 23:45 101 24 139/103 (115) 99 NIV Bilevel 35.00 09/04/17 23:30 102 26 134/97 (109) 99 NIV Bilevel 35.00 09/04/17 23:15 101 20 125/84 (98) 98 NIV Bilevel 35.00 09/04/17 23:00 102 27 100 NIV Bilevel 35.00 09/04/17 23:00 103 09/04/17 23:00 100 NIV Bilevel 35 09/04/17 22:58 97.8 106 24 131/93 (106) 100 NIV Bilevel 35.00 09/04/17 22:50 101 25 129/93 97 NIV Bilevel 09/04/17 22:22 101 28 98 35.00 09/04/17 19:44 108 34 100 35.00 09/04/17 19:18 99.3 124 25 151/108 (122) 97 Nasal Cannula I & O 09/05/17 07:00 Intake Total 800 ml Output Total 5850 ml Balance -5050 ml General Appearance: No Apparent Distress, WD/WN, Severe Distress HEENT: PERRL/EOMI, TMs Normal, Normal ENT Inspection, Pharynx Normal Neck: Full Range of Motion, Normal Inspection, Non Tender, Supple, Carotid Bruit, JVD Respiratory: Chest Non Tender, Crackles, Decreased Breath Sounds, Inspiration, Respiratory Distress Cardiovascular: Regular Rate, Rhythm, No Edema, No JVD, No Murmur, Normal Peripheral Pulses, Gallop/S3 Capillary Refill: Less Than 3 Seconds Gastrointestinal: normal bowel sounds, non tender, soft Extremity: Normal Capillary Refill, Normal Inspection, Normal Range of Motion, Non Tender, No Calf Tenderness, No Pedal Edema Neurologic/Psychiatric: Alert, Oriented x3, No Motor/Sensory Deficits, Normal Mood/Affect Skin: Normal Color, Warm/Dry Lymphatic: No Adenopathy Results Lab Laboratory Tests 09/04/17 19:23 09/05/17 03:10 Assessment/Plan Assessment/Plan Acute on chronic Respiratory failure -BIPAP PRN -Oxygen Hx of severe COPD oxygen dependent -Will continue current prednisone -SVNS Pulmonary edema with CHF EF 10-15% -Cardiology following -Lasix 40mg IV daily Anxiety/depression Hx of methamphetamine use Persistent tobacco use Medical noncompliance WILLIAMS THOMAS DO Sep 05, 2017 16:43
[2017-09-05] MEDS ORDERED: LORazepam INJ 2 MG/ML (ATIVAN) VIAL IV PRN (17:46)
[2017-09-05] MEDS: FUROSEMIDE 40 MG/4 ML INJ (LASIX) IVP SCH (17:47)
[2017-09-05] MEDS: inSUlin ASPART (NovoLOG) 1 UNIT/0.01 ML (CHARGE PER UNIT) SC SCH ×2 (17:54→21:22)
[2017-09-05] MEDS: RT-ADVAIR HFA 115/21 MCG PER PUFF IH SCH (18:40)
[2017-09-05] MEDS ORDERED: NS (IVPB) 50 ML ONE (20:52)
[2017-09-05] MEDS: SACUBITRIL/VALSARTAN 24/26 MG (ENTRESTO) TABLET PO SCH (21:26)
[2017-09-05] MEDS: CARVEDILOL 3.125 MG (COREG) TABLET PO SCH (21:26)
[2017-09-05] MEDS: DEXMEDETOMIDINE INJECTION 200 MCG in NS (IVPB) 50 ML IV SCH ×2 (21:26→22:43)
[2017-09-06] VITALS (21 sets, daily range): BP systolic 59–127; BP diastolic 42–91
[2017-09-06] MEDS: DEXMEDETOMIDINE INJECTION 200 MCG in NS (IVPB) 50 ML IV SCH ×9 (00:03→23:44)
[2017-09-06] MEDS ORDERED: LORazepam INJ 2 MG/ML (ATIVAN) VIAL IVP ONE (01:00)
[2017-09-06] MEDS ORDERED: QUEtiapine 25 MG (SEROquel) TAB IMMEDIATE RELEASE PO ONE (03:15)
[2017-09-06 03:43] LABS: BASOPHILS % (AUTO) 0 % (0-10); EOSINOPHILS # (AUTO) 0.2 10^3/uL (0.0-0.3); EOSINOPHILS % (AUTO) 1 % (0-10); HEMATOCRIT 35 % (35-52); HEMOGLOBIN 11.4 G/DL (11.5-16.0); LYMPHOCYTES # (AUTO) 2.1 X 10^3 (1.0-4.0); LYMPHOCYTES % (AUTO) 14 % (12-44); MEAN CORPUSCULAR HEMOGLOBIN 24 PG (25-34); MEAN CORPUSCULAR HGB CONC 32 G/DL (32-36); MEAN CORPUSCULAR VOLUME 74 FL (80-99); MEAN PLATELET VOLUME 11.1 FL (7.4-10.4); MONOCYTES # (AUTO) 1.1 X 10^3 (0.0-1.0); MONOCYTES % (AUTO) 7 % (0-12); NEUTROPHILS # (AUTO) 11.6 X 10^3 (1.8-7.8); NEUTROPHILS % (AUTO) 78 % (42-75); PLATELET COUNT 296 10^3/uL (130-400); RED BLOOD COUNT 4.76 10^6/uL (4.35-5.85); RED CELL DISTRIBUTION WIDTH 17.5 % (10.0-14.5); WHITE BLOOD COUNT 14.9 10^3/uL (4.3-11.0)
[2017-09-06 04:04] LABS: ALANINE AMINOTRANSFERASE 78 U/L (0-55); ALBUMIN 3.4 GM/DL (3.2-4.5); ALKALINE PHOSPHATASE 95 U/L (40-136); BILIRUBIN,TOTAL 0.7 MG/DL (0.1-1.0); BUN/CREATININE RATIO 23; CARBON DIOXIDE 27 MMOL/L (21-32); CHLORIDE 93 MMOL/L (98-107); CREATININE SERUM 0.94 MG/DL (0.60-1.30); GFR ESTIMATED > 60; GLUCOSE 355 MG/DL (70-105); MAGNESIUM 2.1 MG/DL (1.8-2.4); PHOSPHORUS 4.1 MG/DL (2.3-4.7); POTASSIUM 3.9 MMOL/L (3.6-5.0); SODIUM 135 MMOL/L (135-145); TOTAL PROTEIN 5.5 GM/DL (6.4-8.2)
[2017-09-06] MEDS: MAGNESIUM 1 GM/100 ML IVPB 100 ML IV SCH (04:06)
[2017-09-06] MEDS: POTASSIUM CL 10MEQ/50ML IVPB 50 ML IV SCH (04:06)
[2017-09-06] MEDS: KCL 20 MEQ TAB (K-DUR) PO SCH (04:07)
[2017-09-06] MEDS: inSUlin ASPART (NovoLOG) 1 UNIT/0.01 ML (CHARGE PER UNIT) SC SCH ×4 (06:06→22:04)
--- NOTE | 2017-09-06 06:24 | Pulmonary Progress Note ---
Subjective Time Seen by Provider: 07:08 Subjective/Events-last exam SOB no pain no productive cough Focused Exam Lactate Level 09/04/17 19:23: Lactic Acid Level 1.43 Exam Exam Vital Signs Date Time Temp Pulse Resp B/P (MAP) Pulse Ox O2 Delivery O2 Flow Rate FiO2 09/06/17 06:00 65 19 98 Nasal Cannula 3.00 09/06/17 05:00 66 23 92/70 (77) 96 Nasal Cannula 3.00 09/06/17 04:00 Nasal Cannula 3.00 09/06/17 04:00 68 21 90 Nasal Cannula 3.00 09/06/17 03:00 69 102/69 (80) 93 Nasal Cannula 3.00 09/06/17 02:00 82 26 106/84 (91) 94 Nasal Cannula 3.00 09/06/17 01:00 78 09/06/17 01:00 79 35 106/89 (95) 94 Nasal Cannula 3.00 09/06/17 00:00 80 21 94 Nasal Cannula 3.00 09/06/17 00:00 Nasal Cannula 3.00 09/05/17 23:00 85 23 105/88 (94) 97 Nasal Cannula 3.00 09/05/17 22:13 99 31 97 35.00 09/05/17 22:00 99 21 121/79 (93) 93 Nasal Cannula 3.00 09/05/17 21:04 97.3 Nasal Cannula 3.00 09/05/17 21:00 110 29 155/45 (81) 94 Nasal Cannula 3.00 09/05/17 20:00 Nasal Cannula 3.00 09/05/17 20:00 112 31 101/75 (84) 90 Nasal Cannula 3.00 09/05/17 19:00 108 28 112/84 (93) 91 Nasal Cannula 3.00 09/05/17 19:00 108 09/05/17 18:48 Nasal Cannula 3.50 09/05/17 18:41 91 Nasal Cannula 3.50 09/05/17 18:00 98 25 119/106 (110) 92 Nasal Cannula 3.00 09/05/17 17:00 105 36 161/106 (124) 95 Nasal Cannula 3.00 09/05/17 16:00 105 23 123/95 (104) 93 Nasal Cannula 3.00 09/05/17 15:05 96.9 Nasal Cannula 3.00 09/05/17 15:05 Nasal Cannula 3.00 09/05/17 15:00 108 19 115/82 (93) 91 Nasal Cannula 3.00 09/05/17 14:28 Nasal Cannula 3.00 09/05/17 14:00 108 27 98/84 (89) 93 Nasal Cannula 3.00 09/05/17 13:00 102 23 116/93 (101) 93 Nasal Cannula 3.00 09/05/17 13:00 101 09/05/17 12:10 Nasal Cannula 3.00 09/05/17 12:10 97.4 Nasal Cannula 3.00 09/05/17 12:00 105 23 103/78 (86) 95 Nasal Cannula 3.00 09/05/17 11:25 Nasal Cannula 3.00 09/05/17 11:00 101 23 120/77 (91) 94 Nasal Cannula 3.00 09/05/17 10:00 101 25 110/79 (89) 95 NIV Bilevel 35.00 09/05/17 09:00 98 26 128/95 (106) 97 NIV Bilevel 35.00 09/05/17 08:22 98.2 98 NIV Bilevel 35.00 09/05/17 08:22 NIV Bilevel 35 09/05/17 08:00 104 23 130/96 (107) 98 NIV Bilevel 35.00 09/05/17 07:45 Nasal Cannula 3.00 09/05/17 07:00 112 24 101/77 (85) 94 Nasal Cannula 3.00 09/05/17 07:00 111 09/05/17 06:59 Nasal Cannula 3.00 I & O 09/06/17 07:00 Intake Total 1942 ml Output Total 8775 ml Balance -6833 ml General Appearance: No Apparent Distress, WD/WN, Severe Distress HEENT: PERRL/EOMI, TMs Normal, Normal ENT Inspection, Pharynx Normal Neck: Full Range of Motion, Normal Inspection, Non Tender, Supple, Carotid Bruit, JVD Respiratory: Chest Non Tender, Crackles, Decreased Breath Sounds, Inspiration, Respiratory Distress Cardiovascular: Regular Rate, Rhythm, No Edema, No JVD, No Murmur, Normal Peripheral Pulses, Gallop/S3 Capillary Refill: Less Than 3 Seconds Gastrointestinal: normal bowel sounds, non tender, soft Extremity: Normal Capillary Refill, Normal Inspection, Normal Range of Motion, Non Tender, No Calf Tenderness, No Pedal Edema Neurologic/Psychiatric: Alert, Oriented x3, No Motor/Sensory Deficits, Normal Mood/Affect Skin: Normal Color, Warm/Dry Lymphatic: No Adenopathy Results Lab Laboratory Tests 09/04/17 19:23 09/05/17 03:10 09/06/17 03:26 Assessment/Plan Assessment/Plan Acute on chronic Respiratory failure - pt is requiring 3 liters oxygen -BIPAP PRN -Oxygen -CXR- pt refused CXR Hx of severe COPD oxygen dependent -Will continue current prednisone -SVNS Pulmonary edema with CHF EF 10-15% -Cardiology following -Lasix 40mg IV daily extreme ICU psychosis - hx of meth use -currently on precedex -Start Haldol -start morphine Anxiety/depression Hx of methamphetamine use Persistent tobacco use Medical noncompliance [id number] WILLIAMS THOMAS DO Sep 06, 2017 06:24
[2017-09-06] MEDS: RT-ALBUTEROL/IPRATROPIUM 3 ML (DUONEB) VIAL INH SCH ×5 (06:31→18:45)
[2017-09-06] MEDS: RT-ADVAIR HFA 115/21 MCG PER PUFF IH SCH ×3 (06:31→18:45)
[2017-09-06] MEDS ORDERED: HALOPERIDOL 5 MG/ML (HALDOL) AMP ONE (06:47)
[2017-09-06] MEDS: HALOPERIDOL 5 MG/ML (HALDOL) AMP IM PRN (06:52)
[2017-09-06] MEDS: FUROSEMIDE 40 MG/4 ML INJ (LASIX) IVP SCH (08:27)
[2017-09-06] MEDS: ASPIRIN E.C. 81 MG (ECOTRIN) TAB PO SCH ×2 (08:32→14:13)
[2017-09-06] MEDS: SACUBITRIL/VALSARTAN 24/26 MG (ENTRESTO) TABLET PO SCH ×2 (08:32→21:21)
[2017-09-06] MEDS: predniSONE 20 MG TAB PO SCH (08:32)
[2017-09-06] MEDS: CARVEDILOL 3.125 MG (COREG) TABLET PO SCH ×2 (08:32→21:21)
[2017-09-06] MEDS: PANTOPRAZOLE 40 MG (PROTONIX) TAB PO SCH ×2 (08:32→14:13)
--- NOTE | 2017-09-06 09:52 | Cardiology Progress Note ---
Subjective Date Seen by Provider: Sep 06, 2017 Time Seen by Provider: 09:47 Subjective/Events-last exam Patient is laying down in bed, sedated, became combative and confused last night with ICU psychosis. She put out over 12 L of urine overnight, currently borderline hypotensive Review of Systems General: Other (Sedated, not providing ROS) Focused Exam Lactate Level 09/04/17 19:23: Lactic Acid Level 1.43 Objective-Cardiology Exam Last Set of Vital Signs Vital Signs 09/05/17 09/06/17 09/06/17 08:22 08:00 09:00 Temp 97.0 Pulse 56 Resp 11 B/P (MAP) 85/66 (72) Pulse Ox 95 O2 Delivery Nasal Cannula O2 Flow Rate 3.00 FiO2 35 Capillary Refill : Less Than 3 Seconds I&O Intake and Output 09/06/17 00:00 Intake Total 2742 ml Output Total 42007 ml Balance -9458 ml Intake Oral 2590 ml IV Total 152 ml Output Urine Total 89430 ml General: Mild Distress, Other (Sedated ) HEENT: Atraumatic, PERRLA Neck: Supple, No JVD Lungs: Clear to Auscultation, Normal Air Movement Heart: Regular Rate, Normal S1, Normal S2, Gallops Abdomen: Normal Bowel Sounds, Soft Extremities: No Clubbing, No Cyanosis Skin: No Rashes, No Breakdown Neuro: Other (Sedated) Psych/Mental Status: Other (confused, sedated) Results Lab Laboratory Tests 09/06/17 03:26 A/P-Cardiology Admission Diagnosis Acute respiratory failure Pulmonary edema Congestive heart failure, acute left ventricular systolic dysfunction, nonischemic cardiomyopathy Noncompliance with medication Assessment/Plan Status post acute respiratory failure and pulmonary edema, better at this time after diuresing aggressively. Currently hypotensive, I will hold the evening dose of Lasix, parameters for heart failure medications to hold for systolic blood pressure less than 100. Improving slowly. Acute change in mental status, probably ICU psychosis, sedated at this time. Congestive heart failure, acute left ventricular systolic dysfunction, nonischemic cardiomyopathy, had a cardiac catheterization done in 2014 showing minor coronary arteries, cardiac enzymes are negative. Continue on current medications and monitor, previously she has refused a LifeVest, will attempt again with her. History of bradycardia with episode of transient complete heart block, occurred in 2014. I will continue monitoring and use low-dose beta blockers cautiously and evaluate her tolerance and response. Hypertension, currently hypotensive, probably secondary to diuresis. Continue to monitor closely COPD, has history of extensive COPD. Active smoker mod Dr. Trivedi is managing History of intermittent methamphetamine use. Has used it recently. Last urine drug screen was negative Obesity, BMI is 32, patient is at increased risk of sleep apnea.. History of noncompliance with medications. History of anxiety, depression. History of diabetes mellitus, not taking any medication, controlled by diet according to the patient. Clinical Quality Measures DVT/VTE Risk/Contraindication: Risk Factor Score Per Nursin RFS Level Per Nursing on Admit: 3=High FRANCESCO GOULD MD Sep 06, 2017 09:52
[2017-09-06 10:58] LABS: ABG BASE EXCESS 10.1 MMOL/L (-2.5-2.5); ABG OXYGEN SATURATION 98 % (94-100); ABG PCO2 47 MMHG (35-45); ABG PH 7.47 (7.37-7.43); ABG PO2 94 MMHG (79-93); ABG TCO2 35.9 MMOL/L (21.0-31.0); ALLENS TEST POSITIVE; INSPIRED O2 3.5L NC; PATIENT TEMP 97.2; VENTILATOR NO
--- NOTE | 2017-09-06 11:27 | Progress Note (SOAP) ---
Subjective Subjective/Events-last exam SpO2 stable on 3 lpm supplemental oxygen, but became very agitated overnight, per eICU she received Haldol and was started on Precedex drip. She was apparently also confused last night. Review of Systems Date Seen by Provider: Sep 06, 2017 Time Seen by Provider: 10:35 Focused Exam Lactate Level 09/04/17 19:23: Lactic Acid Level 1.43 Objective Exam Last Set of Vital Signs Vital Signs Date Time Temp Pulse Resp B/P (MAP) Pulse Ox O2 Delivery O2 Flow Rate FiO2 09/06/17 10:31 98 Nasal Cannula 3.50 09/06/17 10:00 58 18 97/70 (79) 09/06/17 08:00 97.0 09/05/17 08:22 35 Capillary Refill : Less Than 3 Seconds I&O Intake and Output 09/06/17 00:00 Intake Total 2742 ml Output Total 05234 ml Balance -9458 ml Intake Oral 2590 ml IV Total 152 ml Output Urine Total 38474 ml General: Alert, No Acute Distress Lungs: Clear to Auscultation, Other (very decreased air movement) Neuro: Normal Speech Psych/Mental Status: Other (oriented only to self) Results/Procedures Lab Laboratory Tests 09/05/17 17:50: Glucometer 203H 09/05/17 21:21: Glucometer 159H 09/06/17 03:26: White Blood Count 14.9H, Red Blood Count 4.76, Hemoglobin 11.4L, Hematocrit 35, Mean Corpuscular Volume 74L, Mean Corpuscular Hemoglobin 24L, Mean Corpuscular Hemoglobin Concent 32, Red Cell Distribution Width 17.5H, Platelet Count 296, Mean Platelet Volume 11.1H, Neutrophils (%) (Auto) 78H, Lymphocytes (%) (Auto) 14, Monocytes (%) (Auto) 7, Eosinophils (%) (Auto) 1, Basophils (%) (Auto) 0, Neutrophils # (Auto) 11.6H, Lymphocytes # (Auto) 2.1, Monocytes # (Auto) 1.1H, Eosinophils # (Auto) 0.2, Basophils # (Auto) 0.0, Sodium Level 135, Potassium Level 3.9, Chloride Level 93L, Carbon Dioxide Level 27, Anion Gap 15H, Blood Urea Nitrogen 22H, Creatinine 0.94, Estimat Glomerular Filtration Rate > 60, BUN /Creatinine Ratio 23, Glucose Level 355H, Calcium Level 9.0, Phosphorus Level 4.1, Magnesium Level 2.1, Total Bilirubin 0.7, Aspartate Amino Transf (AST/SGOT ) 15, Alanine Aminotransferase (ALT/SGPT) 78H, Alkaline Phosphatase 95, Troponin I < 0.30, B-Type Natriuretic Peptide 1350.3H, Total Protein 5.5L, Albumin 3.4 09/06/17 10:50: Blood Gas Puncture Site R RADIAL, Blood Gas Patient Temperature 97.2, Arterial Blood pH 7.47H, Arterial Blood Partial Pressure CO2 47H, Arterial Blood Partial Pressure O2 94H, Arterial Blood HCO3 34H, Arterial Blood Total CO2 35.9H, Arterial Blood Oxygen Saturation 98, Arterial Blood Base Excess 10.1H, Torsten Test POSITIVE, Blood Gas Ventilator Setting NO, Blood Gas Inspired Oxygen 3.5L NC Microbiology 09/04/17 Blood Culture - Preliminary, Resulted No growth Radiology IMPRESSION: 1. Marked cardiomegaly and pulmonary vascular congestion 2. Bibasilar opacities as noted above; correlate with symptoms. A small left effusion is possible. Assessment/Plan Assessment/Plan (1) CHF (congestive heart failure) Status: Acute Assessment & Plan: Markedly elevated BNP on admission along with vascular congestion on chest x-ray. Although patient reported no known history of heart failure, she had similar acute congestive heart failure episode 3 years ago on chart review. -Cardiology consult, appreciate recommendations -IV lasix 09/06- has had over 6 liters out and BNP decreasing, blood pressure low, lasix discontinued. Appreciate Cardiology recommendations. Qualifiers: Qualified Codes: I50.21 - Acute systolic (congestive) heart failure (2) COPD with exacerbation Status: Acute Assessment & Plan: Unclear if exacerbation persistent at this time, will not increase home steroids as it appears her dyspnea is more related to her fluid overload and she has history of relatively recent GI bleed would prefer to minimize steroid use. -RT protocol, home inhaled LABA/steroid, was on prednisone taper outpatient, received 20 mg today, will confirm where in taper she is and dose appropriately 09/06- should be on 20 mg prednisone today and down to 10 mg 09/07 and 09/08 (3) Hyperglycemia Status: Acute Assessment & Plan: Has elevated blood sugars when on steroids. -Diabetic diet, blood sugar achs and sliding scale insulin. Home glimeperide. (4) History of GI bleed Status: Chronic Assessment & Plan: Monitor hemoglobin closely (5) Anxiety Status: Chronic Assessment & Plan: Has failed multiple treatments and declines Behavioral Health at this time. Requesting lorazepam IV inpatient. -IV lorazepam as needed during acute shortness of air episodes, will try to minimize as she will not be discharged with them due to history of overdose and substance abuse 09/06 overnight confused and agitated, given Haldol and started precedex drip. Will check ABG to rule out significant hypercapnia and if unremarkable, try titrating Precedex (6) DVT prophylaxis Status: Acute Assessment & Plan: Enoxaparin Clinical Quality Measures DVT/VTE Risk/Contraindication: Risk Factor Score Per Nursin RFS Level Per Nursing on Admit: 3=High JAISON NORWOOD MD Sep 06, 2017 11:27
[2017-09-06] MEDS: ENOXAPARIN 40 MG/0.4 ML (LOVENOX) SYR SQ SCH (11:30)
[2017-09-06] MEDS ORDERED: NS IV 1000 ML 1,000 ML IV ONE (12:30)
[2017-09-06] MEDS ORDERED: NS IV 1000 ML 1,000 ML ONE (12:32)
[2017-09-06] MEDS ORDERED: DOPamine DRIP 0 ML IV ONE (12:49)
[2017-09-06] MEDS ORDERED: DOBUTamine 250 MG/20 ML (DOBUTREX) VIAL IV ONE (12:53)
[2017-09-06] MEDS ORDERED: NORMAL SALINE 250 ML ONE (12:53)
[2017-09-06] MEDS: DOBUTamine INJECTION 250 MG in NS (IVPB) 250 ML IV SCH ×2 (12:56→22:04)
--- NOTE | 2017-09-06 12:59 | Diagnostic Imaging Report ---
INDICATION: Decreased alertness, dyspnea, congestive heart failure. TECHNIQUE: Single view chest 12:41 PM. CORRELATION STUDY: 09/05/2017 FINDINGS: Stable severity cardiac enlargement. Vasculature relatively normal on followup. Right pleural effusion associated with atelectasis or infiltrate at the right lung base appears perhaps slightly increased. Left lung with minimal atelectasis particularly in the lingula. The previously noted left pleural effusion appears decreased. IMPRESSION: 1. Cardiac enlargement with vascular relatively normal on followup. 2. Continued effusion with atelectasis or infiltrate at the right lung base with likely atelectasis left lung base. Dictated by: Dictated on workstation # [id number]
[2017-09-06] MEDS: HALOPERIDOL 5 MG/ML (HALDOL) AMP IV SCH ×2 (13:46→21:49)
[2017-09-06] MEDS ORDERED: HYDROCORTISONE 100 MG/2 ML (Solu-CORTEF) VIAL ONE (14:13)
[2017-09-06] MEDS ORDERED: HYDROCORTISONE 100 MG/2 ML (Solu-CORTEF) VIAL IV NR (14:21)
[2017-09-07] VITALS (25 sets, daily range): BP systolic 77–116; BP diastolic 49–75
[2017-09-07] MEDS: DEXMEDETOMIDINE INJECTION 200 MCG in NS (IVPB) 50 ML IV SCH (02:43)
[2017-09-07 04:24] LABS: BASOPHILS % (AUTO) 0 % (0-10); EOSINOPHILS # (AUTO) 0.2 10^3/uL (0.0-0.3); EOSINOPHILS % (AUTO) 1 % (0-10); HEMATOCRIT 37 % (35-52); HEMOGLOBIN 11.9 G/DL (11.5-16.0); LYMPHOCYTES # (AUTO) 2.5 X 10^3 (1.0-4.0); LYMPHOCYTES % (AUTO) 17 % (12-44); MEAN CORPUSCULAR HEMOGLOBIN 24 PG (25-34); MEAN CORPUSCULAR HGB CONC 33 G/DL (32-36); MEAN CORPUSCULAR VOLUME 74 FL (80-99); MONOCYTES % (AUTO) 7 % (0-12); NEUTROPHILS # (AUTO) 10.9 X 10^3 (1.8-7.8); NEUTROPHILS % (AUTO) 75 % (42-75); PLATELET COUNT 320 10^3/uL (130-400); RED BLOOD COUNT 4.94 10^6/uL (4.35-5.85); RED CELL DISTRIBUTION WIDTH 17.6 % (10.0-14.5); WHITE BLOOD COUNT 14.6 10^3/uL (4.3-11.0)
[2017-09-07 04:44] LABS: BUN/CREATININE RATIO 24; CALCIUM 9.1 MG/DL (8.5-10.1); CARBON DIOXIDE 23 MMOL/L (21-32); CHLORIDE 102 MMOL/L (98-107); CREATININE SERUM 0.78 MG/DL (0.60-1.30); GFR ESTIMATED > 60; GLUCOSE 225 MG/DL (70-105); MAGNESIUM 1.8 MG/DL (1.8-2.4); PHOSPHORUS 3.6 MG/DL (2.3-4.7); POTASSIUM 3.7 MMOL/L (3.6-5.0); SODIUM 137 MMOL/L (135-145)
[2017-09-07] MEDS: HALOPERIDOL 5 MG/ML (HALDOL) AMP IV SCH (05:44)
[2017-09-07] MEDS: POTASSIUM CL 10MEQ/50ML IVPB 50 ML IV SCH (05:44)
[2017-09-07] MEDS: KCL 20 MEQ TAB (K-DUR) PO SCH (05:45)
[2017-09-07] MEDS: DOBUTamine INJECTION 250 MG in NS (IVPB) 250 ML IV SCH ×2 (05:45→15:52)
[2017-09-07] MEDS: MAGNESIUM 1 GM/100 ML IVPB 100 ML IV SCH (05:45)
[2017-09-07] MEDS: inSUlin ASPART (NovoLOG) 1 UNIT/0.01 ML (CHARGE PER UNIT) SC SCH ×4 (05:46→21:27)
[2017-09-07] MEDS: RT-ALBUTEROL/IPRATROPIUM 3 ML (DUONEB) VIAL INH SCH ×4 (07:40→18:44)
[2017-09-07] MEDS: RT-ADVAIR HFA 115/21 MCG PER PUFF IH SCH ×2 (07:45→18:44)
[2017-09-07] MEDS: CARVEDILOL 3.125 MG (COREG) TABLET PO SCH ×2 (08:26→20:25)
[2017-09-07] MEDS: SACUBITRIL/VALSARTAN 24/26 MG (ENTRESTO) TABLET PO SCH ×2 (08:27→20:25)
--- NOTE | 2017-09-07 08:41 | Diagnostic Imaging Report ---
INDICATION: Shortness of breath Portable chest 3:36 AM There is left basilar infiltrate or atelectasis. Heart size and pulmonary vascularity are normal. IMPRESSION: Minimal left basilar infiltrate and/or atelectasis and possibly a small left effusion. Dictated by: Dictated on workstation # [id number]
[2017-09-07] MEDS: ASPIRIN E.C. 81 MG (ECOTRIN) TAB PO SCH (08:43)
[2017-09-07] MEDS: predniSONE 10 MG TAB PO SCH (08:44)
[2017-09-07] MEDS: PANTOPRAZOLE 40 MG (PROTONIX) TAB PO SCH (08:44)
--- NOTE | 2017-09-07 09:18 | Pulmonary Progress Note ---
Subjective Time Seen by Provider: 09:19 Subjective/Events-last exam PT appears to still be SOB with accessory muscle use. She has been less combative/psychotic c/w yesterday. Focused Exam Lactate Level 09/04/17 19:23: Lactic Acid Level 1.43 09/06/17 13:05: Lactic Acid Level 1.25 Exam Exam Vital Signs Date Time Temp Pulse Resp B/P (MAP) Pulse Ox O2 Delivery O2 Flow Rate FiO2 09/07/17 08:00 77 9 91/68 (76) 93 Nasal Cannula 3.00 09/07/17 08:00 97.0 09/07/17 07:40 95 Nasal Cannula 3.00 09/07/17 07:00 76 09/07/17 07:00 76 18 77/49 (58) 94 Nasal Cannula 3.00 09/07/17 06:00 75 18 87/60 (69) 94 Nasal Cannula 3.00 09/07/17 05:00 75 20 84/58 (67) 97 Nasal Cannula 3.00 09/07/17 04:00 74 11 80/52 (61) 98 Nasal Cannula 3.00 09/07/17 04:00 Nasal Cannula 3.00 09/07/17 04:00 97.3 09/07/17 03:00 74 19 89/68 (75) 95 Nasal Cannula 3.00 09/07/17 02:12 98 Nasal Cannula 3.50 09/07/17 02:00 86 23 96/63 (74) 95 Nasal Cannula 3.00 09/07/17 01:00 76 19 88/66 (73) 95 Nasal Cannula 3.00 09/07/17 01:00 76 09/07/17 00:00 Nasal Cannula 3.00 09/07/17 00:00 97.8 09/07/17 00:00 78 19 90/63 (72) 93 Nasal Cannula 3.00 09/06/17 23:00 81 20 87/65 (72) 95 Nasal Cannula 3.00 09/06/17 22:00 87 21 88/65 (73) 96 Nasal Cannula 3.00 09/06/17 21:00 90 17 95 Nasal Cannula 3.00 09/06/17 20:00 Nasal Cannula 3.00 09/06/17 20:00 97.7 09/06/17 20:00 90 20 92/69 (77) 93 Nasal Cannula 3.00 09/06/17 19:00 87 09/06/17 19:00 87 20 97/73 (81) 96 Nasal Cannula 3.00 09/06/17 18:55 99 Nasal Cannula 3.50 09/06/17 18:45 97 Nasal Cannula 3.50 09/06/17 18:00 81 19 105/45 (65) 98 Nasal Cannula 3.00 09/06/17 17:00 82 21 95/60 (72) 98 Nasal Cannula 3.00 09/06/17 16:00 85 18 100/74 (83) 98 Nasal Cannula 3.00 09/06/17 16:00 97.0 09/06/17 16:00 Nasal Cannula 3.00 09/06/17 15:17 99 Nasal Cannula 3.50 09/06/17 15:00 86 19 109/74 (86) 99 Nasal Cannula 3.00 09/06/17 14:00 85 18 127/91 (103) 100 Nasal Cannula 3.00 09/06/17 13:00 82 18 121/89 (100) 100 Nasal Cannula 3.00 09/06/17 13:00 81 09/06/17 12:20 66/42 (50) 09/06/17 12:10 59/44 (49) 09/06/17 12:00 Nasal Cannula 3.00 09/06/17 12:00 67 23 72/44 (53) 98 Nasal Cannula 3.00 09/06/17 11:57 96.8 09/06/17 11:00 63 18 88/72 (77) 98 Nasal Cannula 3.00 09/06/17 10:31 98 Nasal Cannula 3.50 09/06/17 10:00 58 18 97/70 (79) 98 Nasal Cannula 3.00 I & O 09/07/17 07:00 Intake Total 2104 ml Output Total 3925 ml Balance -1821 ml General Appearance: No Apparent Distress, WD/WN, Severe Distress HEENT: PERRL/EOMI, TMs Normal, Normal ENT Inspection, Pharynx Normal Neck: Full Range of Motion, Normal Inspection, Non Tender, Supple, Carotid Bruit, JVD Respiratory: Chest Non Tender, Crackles, Decreased Breath Sounds, Inspiration, Respiratory Distress Cardiovascular: Regular Rate, Rhythm, No Edema, No JVD, No Murmur, Normal Peripheral Pulses, Gallop/S3 Capillary Refill: Less Than 3 Seconds Gastrointestinal: normal bowel sounds, non tender, soft Extremity: Normal Capillary Refill, Normal Inspection, Normal Range of Motion, Non Tender, No Calf Tenderness, No Pedal Edema Neurologic/Psychiatric: Alert, Oriented x3, No Motor/Sensory Deficits, Normal Mood/Affect Skin: Normal Color, Warm/Dry Lymphatic: No Adenopathy Results Lab Laboratory Tests 09/06/17 03:26 09/07/17 04:00 Assessment/Plan Assessment/Plan Acute on chronic Respiratory failure - pt is requiring 3 liters oxygen -BIPAP PRN -Oxygen -CXR- pt refused CXR Hx of severe COPD oxygen dependent -Will continue current prednisone -SVNS Pulmonary edema with CHF EF 10-15% -Cardiology following -Lasix 40mg IV daily Hypotension- improved -Lasix is on hold -Dobutamine gtt has been ordered. was extreme ICU psychosis - hx of meth use -D/C precedex -Haldol change to PRN -Start Risperdal BID - morphine Anxiety/depression Hx of methamphetamine use Persistent tobacco use Medical noncompliance [id number] WILLIAMS THOAMS DO Sep 07, 2017 09:18
[2017-09-07] MEDS ORDERED: risperiDONE 1 MG (RisperDAL) TAB ONE (10:16)
[2017-09-07] MEDS: risperiDONE 1 MG (RisperDAL) TAB PO SCH ×2 (10:19→20:25)
[2017-09-07] MEDS: ENOXAPARIN 40 MG/0.4 ML (LOVENOX) SYR SQ SCH (10:21)
--- NOTE | 2017-09-07 10:50 | Cardiology Progress Note ---
Subjective Date Seen by Provider: Sep 07, 2017 Time Seen by Provider: 10:48 Subjective/Events-last exam Patient is sitting in bed, feeling better, more awake, oriented, following commands, denied any chest pain, still having some shortness of breath. Review of Systems General: No Chills, No Night Sweats, No Fatigue, No Malaise, No Appetite, No Other HEENT: No Head Aches, No Visual Changes, No Eye Pain, No Ear Pain, No Dysphasia , No Sinus Congestion, No Post Nasal Drip, No Sore Throat, No Other Pulmonary: Dyspnea; No Cough, No Pleuritic Chest Pain, No Other Cardiovascular: No: Chest Pain, Palpitations, Orthopnea, Paroxysmal Noc. Dyspnea, Edema, Lt Headedness, Other Focused Exam Lactate Level 09/04/17 19:23: Lactic Acid Level 1.43 09/06/17 13:05: Lactic Acid Level 1.25 Objective-Cardiology Exam Last Set of Vital Signs Vital Signs 09/05/17 09/07/17 09/07/17 08:22 08:00 10:00 Temp 97.0 Pulse 82 Resp 22 B/P (MAP) 98/75 (83) Pulse Ox 98 O2 Delivery Nasal Cannula O2 Flow Rate 3.00 FiO2 35 Capillary Refill : Less Than 3 Seconds I&O Intake and Output 09/07/17 00:00 Intake Total 2104 ml Output Total 3200 ml Balance -1096 ml Intake Oral 1000 ml IV Total 1104 ml Output Urine Total 3200 ml General: Alert, Oriented X3, Cooperative, No Acute Distress HEENT: Atraumatic, PERRLA Neck: Supple, No JVD Lungs: Clear to Auscultation, Other (very decreased air movement) Heart: Regular Rate, Normal S1, Normal S2, Gallops Abdomen: Normal Bowel Sounds, Soft Extremities: No Clubbing, No Cyanosis Skin: No Rashes, No Breakdown Neuro: Normal Speech Psych/Mental Status: Other (oriented only to self) Results Lab Laboratory Tests 09/07/17 04:00 A/P-Cardiology Admission Diagnosis Acute respiratory failure Pulmonary edema Congestive heart failure, acute left ventricular systolic dysfunction, nonischemic cardiomyopathy Noncompliance with medication Assessment/Plan Status post acute respiratory failure and pulmonary edema, better at this time after diuresing aggressively. Responded to aggressive medical therapy, feeling better. Acute change in mental status, improved at this time, continue to monitor Congestive heart failure, acute left ventricular systolic dysfunction, nonischemic cardiomyopathy, had a cardiac catheterization done in 2014 showing minor coronary arteries, cardiac enzymes are negative. Continue on current medications and monitor, still refusing LifeVest. History of bradycardia with episode of transient complete heart block, occurred in 2014. Continue on low-dose beta blockers and evaluate her tolerance and response Hypertension, currently hypotensive, secondary to medications, continue to monitor blood pressure. COPD, has history of extensive COPD. Active smoker mod Dr. Trivedi is managing History of intermittent methamphetamine use. Has used it recently. Last urine drug screen was negative Obesity, BMI is 30, patient is at increased risk of sleep apnea.. History of noncompliance with medications. History of anxiety, depression. History of diabetes mellitus, not taking any medication, controlled by diet according to the patient. Clinical Quality Measures DVT/VTE Risk/Contraindication: Risk Factor Score Per Nursin RFS Level Per Nursing on Admit: 3=High FRANCESCO GOULD MD Sep 07, 2017 10:50
[2017-09-07] MEDS ORDERED: FUROSEMIDE 40 MG/4 ML INJ (LASIX) IVP NR (11:00)
[2017-09-07] MEDS: HALOPERIDOL 5 MG/ML (HALDOL) AMP IM PRN (11:02)
[2017-09-07] MEDS ORDERED: FUROSEMIDE 40 MG/4 ML INJ (LASIX) ONE (11:08)
--- NOTE | 2017-09-07 11:54 | Progress Note (SOAP) ---
Subjective Subjective/Events-last exam Patient with somewhat blunted affect today. She is eating food brought by her daughter, who is also at bedside. Daughter reports they have been talking about the LifeVest and patient is considering it, which is progress, as she was previously refusing it. When asked how she is feeling, patient reports that she "feels no better than before". She has been maintaining her blood pressure off dobutamine since yesterday. Review of Systems Date Seen by Provider: Sep 07, 2017 Time Seen by Provider: 14:55 General: No Chills, No Night Sweats; Fatigue HEENT: No Head Aches, No Dysphasia Pulmonary: Dyspnea, Cough Cardiovascular: No: Chest Pain, Palpitations Gastrointestinal: Abdominal Pain; No: Nausea, Vomiting Genitourinary: No Hematuria Musculoskeletal: neck pain, back pain Neurological: Weakness; No: Numbness, Incoordination, Change in speech, Seizures Focused Exam Lactate Level 09/04/17 19:23: Lactic Acid Level 1.43 09/06/17 13:05: Lactic Acid Level 1.25 Objective Exam Last Set of Vital Signs Vital Signs Date Time Temp Pulse Resp B/P (MAP) Pulse Ox O2 Delivery O2 Flow Rate FiO2 09/07/17 11:10 96 Nasal Cannula 3.00 09/07/17 10:00 82 22 98/75 (83) 09/07/17 08:00 97.0 09/05/17 08:22 35 Capillary Refill : Less Than 3 Seconds I&O Intake and Output 09/07/17 00:00 Intake Total 2104 ml Output Total 3200 ml Balance -1096 ml Intake Oral 1000 ml IV Total 1104 ml Output Urine Total 3200 ml General: Alert, Cooperative, No Acute Distress HEENT: Atraumatic, EOMI, Mucous Memb Moist/Centre Neck: Supple, No Thyromegaly Lungs: Other (diminished in bases with mild scattered wheezes) Heart: Regular Rate, Normal S1, Normal S2, Gallops Abdomen: Normal Bowel Sounds, Soft, No Hepatosplenomegaly, No Masses Extremities: No Cyanosis, Normal Pulses, No Tenderness/Swelling Skin: No Rashes, No Significant Lesion Neuro: Normal Speech, Normal Tone, Sensation Intact, Cranial Nerves 3-12 NL Psych/Mental Status: Mental Status NL, Mood NL Results/Procedures Lab Laboratory Tests 09/06/17 13:05: Lactic Acid Level 1.25 09/06/17 16:44: Glucometer 107 09/07/17 04:00: White Blood Count 14.6H, Red Blood Count 4.94, Hemoglobin 11.9, Hematocrit 37, Mean Corpuscular Volume 74L, Mean Corpuscular Hemoglobin 24L, Mean Corpuscular Hemoglobin Concent 33, Red Cell Distribution Width 17.6H, Platelet Count 320, Mean Platelet Volume 11.0H, Neutrophils (%) (Auto) 75, Lymphocytes (%) (Auto) 17 , Monocytes (%) (Auto) 7, Eosinophils (%) (Auto) 1, Basophils (%) (Auto) 0, Neutrophils # (Auto) 10.9H, Lymphocytes # (Auto) 2.5, Monocytes # (Auto) 1.0, Eosinophils # (Auto) 0.2, Basophils # (Auto) 0.0, Sodium Level 137, Potassium Level 3.7, Chloride Level 102, Carbon Dioxide Level 23, Anion Gap 12, Blood Urea Nitrogen 19H, Creatinine 0.78, Estimat Glomerular Filtration Rate > 60, BUN /Creatinine Ratio 24, Glucose Level 225H, Calcium Level 9.1, Phosphorus Level 3.6, Magnesium Level 1.8 Microbiology 09/04/17 Blood Culture - Preliminary, Resulted No growth Radiology IMPRESSION: 1. Marked cardiomegaly and pulmonary vascular congestion 2. Bibasilar opacities as noted above; correlate with symptoms. A small left effusion is possible. Assessment/Plan Assessment/Plan (1) CHF (congestive heart failure) Status: Acute Assessment & Plan: Markedly elevated BNP on admission along with vascular congestion on chest x-ray. Although patient reported no known history of heart failure, she had similar acute congestive heart failure episode 3 years ago on chart review. -Cardiology consult, appreciate recommendations -IV lasix 09/06- has had over 6 liters out and BNP decreasing, blood pressure low, lasix discontinued. Appreciate Cardiology recommendations. 09/07 - pt maintaining pressures off dobutamine, although somewhat soft; BP 70-90' s/50-60's; cardiology has recommended life vest, based on low EF of 15-20%; extensive discussion with patient and her daughter at the time of exam reviewing benefits of life vest and need for 3 month trial with medication and life vest before patient would be a candidate for ICD placement, reinforced that we appreciate and support cardiology recommendations for her cardiac care Qualifiers: Qualified Codes: I50.21 - Acute systolic (congestive) heart failure (2) COPD with exacerbation Status: Acute Assessment & Plan: Unclear if exacerbation persistent at this time, will not increase home steroids as it appears her dyspnea is more related to her fluid overload and she has history of relatively recent GI bleed would prefer to minimize steroid use. -RT protocol, home inhaled LABA/steroid, was on prednisone taper outpatient, received 20 mg today, will confirm where in taper she is and dose appropriately 09/06- should be on 20 mg prednisone today and down to 10 mg 09/07 and 09/08 (3) Hyperglycemia Status: Acute Assessment & Plan: Has elevated blood sugars when on steroids. -Diabetic diet, blood sugar achs and sliding scale insulin. Home glimeperide. (4) History of GI bleed Status: Chronic Assessment & Plan: Monitor hemoglobin closely (5) Anxiety Status: Chronic Assessment & Plan: Has failed multiple treatments and declines Behavioral Health at this time. Requesting lorazepam IV inpatient. -IV lorazepam as needed during acute shortness of air episodes, will try to minimize as she will not be discharged with them due to history of overdose and substance abuse 09/06 overnight confused and agitated, given Haldol and started precedex drip. Will check ABG to rule out significant hypercapnia and if unremarkable, try titrating Precedex 09/07 - pt appears less confused this afternoon, precedex dc'ed by Dr. Trivedi, pt started on Risperdal, with haldol and/or morphine PRN agitation. Pt's daughter wondering why her PCP does not prescribe anything for her anxiety anymore but it is being treated in the hospital; briefly discussed that pt had a very complex medical picture, and pt's history made trying to give her appropriate medications on an outpatient basis difficult, however in the hospital she is being monitored, as is her medication. Discussed that we may discharge her with some medication if it is deemed necessary, but that it would only be until she could follow up with her PCP (6) DVT prophylaxis Status: Acute Assessment & Plan: Enoxaparin Clinical Quality Measures DVT/VTE Risk/Contraindication: Risk Factor Score Per Nursin RFS Level Per Nursing on Admit: 3=High Copy Copies To 1: [facility]/PAZ ANDERSON DO Sep 07, 2017 11:54
[2017-09-07] MEDS: morphine INJ 4 MG/ML 1 ML (VIAL/SYRINGE) IVP PRN ×2 (16:43→20:30)
[2017-09-07] MEDS ORDERED: risperiDONE 1 MG (RisperDAL) TAB PO SCH (21:00)
[2017-09-08] VITALS (20 sets, daily range): BP systolic 104–162; BP diastolic 64–113
[2017-09-08] MEDS: DOBUTamine INJECTION 250 MG in NS (IVPB) 250 ML IV SCH ×2 (00:19→06:36)
[2017-09-08] MEDS: morphine INJ 4 MG/ML 1 ML (VIAL/SYRINGE) IVP PRN (03:09)
[2017-09-08 04:07] LABS: BASOPHILS % (AUTO) 0 % (0-10); EOSINOPHILS # (AUTO) 0.2 10^3/uL (0.0-0.3); EOSINOPHILS % (AUTO) 2 % (0-10); HEMATOCRIT 40 % (35-52); HEMOGLOBIN 12.9 G/DL (11.5-16.0); LYMPHOCYTES # (AUTO) 3.1 X 10^3 (1.0-4.0); LYMPHOCYTES % (AUTO) 23 % (12-44); MEAN CORPUSCULAR HEMOGLOBIN 24 PG (25-34); MEAN CORPUSCULAR HGB CONC 33 G/DL (32-36); MEAN CORPUSCULAR VOLUME 74 FL (80-99); MEAN PLATELET VOLUME 11.7 FL (7.4-10.4); MONOCYTES # (AUTO) 1.5 X 10^3 (0.0-1.0); MONOCYTES % (AUTO) 11 % (0-12); NEUTROPHILS # (AUTO) 8.9 X 10^3 (1.8-7.8); NEUTROPHILS % (AUTO) 65 % (42-75); PLATELET COUNT 269 10^3/uL (130-400); RED BLOOD COUNT 5.36 10^6/uL (4.35-5.85); RED CELL DISTRIBUTION WIDTH 18.7 % (10.0-14.5); WHITE BLOOD COUNT 13.8 10^3/uL (4.3-11.0)
[2017-09-08 04:28] LABS: BUN/CREATININE RATIO 20; CALCIUM 8.9 MG/DL (8.5-10.1); CARBON DIOXIDE 21 MMOL/L (21-32); CHLORIDE 104 MMOL/L (98-107); CREATININE SERUM 0.84 MG/DL (0.60-1.30); GFR ESTIMATED > 60; GLUCOSE 164 MG/DL (70-105); MAGNESIUM 2.2 MG/DL (1.8-2.4); PHOSPHORUS 3.8 MG/DL (2.3-4.7); SODIUM 139 MMOL/L (135-145)
[2017-09-08] MEDS: HALOPERIDOL 5 MG/ML (HALDOL) AMP IM PRN ×2 (05:08→23:11)
[2017-09-08] MEDS: MAGNESIUM 1 GM/100 ML IVPB 100 ML IV SCH (06:35)
[2017-09-08] MEDS: KCL 20 MEQ TAB (K-DUR) PO SCH (06:35)
[2017-09-08] MEDS: POTASSIUM CL 10MEQ/50ML IVPB 50 ML IV SCH (06:35)
[2017-09-08] MEDS: inSUlin ASPART (NovoLOG) 1 UNIT/0.01 ML (CHARGE PER UNIT) SC SCH ×4 (06:36→20:29)
--- NOTE | 2017-09-08 06:50 | Pulmonary Progress Note ---
Subjective Time Seen by Provider: 06:50 Subjective/Events-last exam Pt appears to be doing unruly Focused Exam Lactate Level 09/06/17 13:05: Lactic Acid Level 1.25 Exam Exam Vital Signs Date Time Temp Pulse Resp B/P (MAP) Pulse Ox O2 Delivery O2 Flow Rate FiO2 09/08/17 06:00 102 13 138/94 (109) 96 Nasal Cannula 3.50 09/08/17 05:00 108 13 147/98 (114) 100 Nasal Cannula 3.50 09/08/17 04:00 102 17 105/64 (78) 100 Nasal Cannula 3.50 09/08/17 04:00 Nasal Cannula 3.50 09/08/17 03:00 101 23 123/90 (101) 97 Nasal Cannula 3.50 09/08/17 02:00 89 24 110/79 (89) 97 Nasal Cannula 3.50 09/08/17 01:00 98 09/08/17 01:00 98 20 110/71 (84) 97 Nasal Cannula 3.50 09/08/17 00:00 97.9 09/08/17 00:00 100 14 105/68 (80) 98 Nasal Cannula 3.50 09/08/17 00:00 Nasal Cannula 3.50 18 23:00 101 14 93/67 (76) 98 Nasal Cannula 3.50 18 22:00 101 14 100/66 (77) 100 Nasal Cannula 3.50 18 21:00 105 16 92/64 (73) 97 Nasal Cannula 3.50 18 20:00 Nasal Cannula 3.50 18 20:00 98.3 18 20:00 109 26 116/66 (83) 96 Nasal Cannula 3.50 18 19:05 104 29 99 Nasal Cannula 3.50 09/07/18 19:00 104 24 90/72 (78) 98 NIV Bilevel 35.00 09/07/17 19:00 104 18 18:50 106 17 100 35.00 18 18:44 97 Nasal Cannula 3.50 18 18:00 109 22 116/67 (83) 97 Nasal Cannula 3.00 18 17:00 106 15 100/66 (77) 99 Nasal Cannula 3.00 18 16:45 97.4 7/2/18 16:00 Nasal Cannula 3.00 09/07/17 16:00 112 22 97/62 (74) 96 Nasal Cannula 3.00 09/07/17 15:00 112 24 105/74 (84) 97 Nasal Cannula 3.00 09/07/17 14:46 98 Nasal Cannula 3.00 09/07/17 14:00 110 24 85/72 (76) 98 Nasal Cannula 3.00 09/07/17 13:00 105 24 100/70 (80) 96 Nasal Cannula 3.00 09/07/17 13:00 105 09/07/17 12:00 Nasal Cannula 3.00 09/07/17 12:00 103 20 88/66 (73) 97 Nasal Cannula 3.00 09/07/17 11:10 96 Nasal Cannula 3.00 09/07/17 11:00 90 32 98/71 (80) 99 Nasal Cannula 3.00 09/07/17 10:00 82 22 98/75 (83) 98 Nasal Cannula 3.00 09/07/17 09:00 78 18 93/72 (79) 98 Nasal Cannula 3.00 09/07/17 08:00 Nasal Cannula 3.00 09/07/17 08:00 77 9 91/68 (76) 93 Nasal Cannula 3.00 09/07/17 08:00 97.0 09/07/17 07:40 95 Nasal Cannula 3.00 09/07/17 07:00 76 09/07/17 07:00 76 18 77/49 (58) 94 Nasal Cannula 3.00 I & O 09/08/17 07:00 Intake Total 2762 ml Output Total 2925 ml Balance -163 ml General Appearance: No Apparent Distress, WD/WN, Severe Distress HEENT: PERRL/EOMI, TMs Normal, Normal ENT Inspection, Pharynx Normal Neck: Full Range of Motion, Normal Inspection, Non Tender, Supple, Carotid Bruit, JVD Respiratory: Chest Non Tender, Crackles, Decreased Breath Sounds, Inspiration, Respiratory Distress Cardiovascular: Regular Rate, Rhythm, No Edema, No JVD, No Murmur, Normal Peripheral Pulses, Gallop/S3 Capillary Refill: Less Than 3 Seconds Gastrointestinal: normal bowel sounds, non tender, soft Extremity: Normal Capillary Refill, Normal Inspection, Normal Range of Motion, Non Tender, No Calf Tenderness, No Pedal Edema Neurologic/Psychiatric: Alert, Oriented x3, No Motor/Sensory Deficits, Normal Mood/Affect Skin: Normal Color, Warm/Dry Lymphatic: No Adenopathy Results Lab Laboratory Tests 09/07/17 04:00 09/08/17 03:30 Assessment/Plan Assessment/Plan Acute on chronic Respiratory failure - pt is requiring 3 liters oxygen -BIPAP PRN -Oxygen -CXR- Hx of severe COPD oxygen dependent -Will continue current prednisone -SVNS Pulmonary edema with CHF EF 10-15% -Cardiology following -Lasix 40mg IV daily extreme ICU psychosis - hx of meth use -Haldol change to PRN -Start Risperdal BID - morphine Anxiety/depression Hx of methamphetamine use Persistent tobacco use Medical noncompliance [id number] WILLIAMS THOMAS DO Sep 08, 2017 06:50
[2017-09-08] MEDS: RT-ALBUTEROL/IPRATROPIUM 3 ML (DUONEB) VIAL INH SCH ×5 (07:34→21:52)
[2017-09-08] MEDS: RT-ADVAIR HFA 115/21 MCG PER PUFF IH SCH ×2 (07:34→19:19)
--- NOTE | 2017-09-08 07:50 | Diagnostic Imaging Report ---
INDICATION: Dyspnea. COMPARISON: 09/07/2017. FINDINGS: Single frontal radiata view chest was obtained and demonstrate stable moderate cardiomegaly. Pulmonary vasculature is within normal limits. Lungs are clear. There is no focal consolidation, large effusion, nor pneumothorax. Bony structures show no gross acute abnormalities. IMPRESSION: 1. Stable moderate cardiomegaly, but no evidence of failure or focal infiltrate. Dictated by: Dictated on workstation # [id number]
[2017-09-08] MEDS ORDERED: RT-ALBUTEROL/IPRATROPIUM 3 ML (DUONEB) VIAL INH PRN (08:00)
[2017-09-08] MEDS: CARVEDILOL 3.125 MG (COREG) TABLET PO SCH ×2 (08:53→20:26)
[2017-09-08] MEDS: SACUBITRIL/VALSARTAN 24/26 MG (ENTRESTO) TABLET PO SCH ×2 (08:53→20:26)
[2017-09-08] MEDS: predniSONE 10 MG TAB PO SCH (08:53)
[2017-09-08] MEDS: risperiDONE 1 MG (RisperDAL) TAB PO SCH ×2 (08:53→20:27)
[2017-09-08] MEDS: PANTOPRAZOLE 40 MG (PROTONIX) TAB PO SCH (08:53)
[2017-09-08] MEDS: ASPIRIN E.C. 81 MG (ECOTRIN) TAB PO SCH (08:54)
--- NOTE | 2017-09-08 09:11 | Cardiology Progress Note ---
Subjective Date Seen by Provider: Sep 08, 2017 Time Seen by Provider: 09:08 Subjective/Events-last exam Patient is feeling better, tiered, no chest pain, blood pressure is better Review of Systems General: No Chills, No Night Sweats; Fatigue, Malaise; No Appetite, No Other HEENT: No Head Aches, No Visual Changes, No Eye Pain, No Ear Pain, No Dysphasia , No Sinus Congestion, No Post Nasal Drip, No Sore Throat, No Other Pulmonary: Dyspnea; No Cough, No Pleuritic Chest Pain, No Other Cardiovascular: No: Chest Pain, Palpitations, Orthopnea, Paroxysmal Noc. Dyspnea, Edema, Lt Headedness, Other Focused Exam Lactate Level 09/06/17 13:05: Lactic Acid Level 1.25 Objective-Cardiology Exam Last Set of Vital Signs Vital Signs 09/08/17 09/08/17 07:35 09:00 Pulse 105 Resp 14 B/P (MAP) 122/65 (84) Pulse Ox 99 O2 Delivery Nasal Cannula O2 Flow Rate 3.50 FiO2 34 Capillary Refill : Less Than 3 Seconds I&O Intake and Output 09/08/17 00:00 Intake Total 1612 ml Output Total 3325 ml Balance -1713 ml Intake Oral 1560 ml IV Total 52 ml Output Urine Total 3325 ml General: Alert, Cooperative, No Acute Distress HEENT: Atraumatic, EOMI, Mucous Memb Moist/Barron Neck: Supple, No JVD, No Thyromegaly Lungs: Other (yarelis rhonchi) Heart: Regular Rate, Normal S1, Normal S2, Gallops Abdomen: Normal Bowel Sounds, Soft, No Hepatosplenomegaly, No Masses Extremities: No Cyanosis, Normal Pulses, No Tenderness/Swelling Skin: No Rashes, No Significant Lesion Neuro: Normal Speech, Strength at 5/5 X4 Ext, Normal Tone, Sensation Intact, Cranial Nerves 3-12 NL Psych/Mental Status: Mental Status NL Results Lab Laboratory Tests 09/08/17 03:30 A/P-Cardiology Admission Diagnosis Acute respiratory failure Pulmonary edema Congestive heart failure, acute left ventricular systolic dysfunction, nonischemic cardiomyopathy Noncompliance with medication Assessment/Plan Status post acute respiratory failure and pulmonary edema, improving, I will change lasix to oral and monitor closely, CXR is better, BNP is better Acute change in mental status, improved at this time, continue to monitor Congestive heart failure, acute left ventricular systolic dysfunction, nonischemic cardiomyopathy, had a cardiac catheterization done in 2014 showing minor coronary arteries, cardiac enzymes are negative. Continue on current medications and monitor, still refusing LifeVest. History of bradycardia with episode of transient complete heart block, occurred in 2014. Continue on low-dose beta blockers and evaluate her tolerance and response Hypertension, currently borderline hypotensive, secondary to medications, continue to monitor blood pressure. COPD, has history of severe COPD. Active smoker, now requiring 3L oxygen and BiPAP PRN, Dr. Trivedi is managing History of intermittent methamphetamine use. Has used it recently. Last urine drug screen was negative Obesity, BMI is 30, patient is at increased risk of sleep apnea.. History of noncompliance with medications. History of anxiety, depression. History of diabetes mellitus, not taking any medication, controlled by diet according to the patient. Dr Muniz is covering for pa Clinical Quality Measures DVT/VTE Risk/Contraindication: Risk Factor Score Per Nursin RFS Level Per Nursing on Admit: 3=High FRANCESCO GOULD MD Sep 08, 2017 09:11
--- NOTE | 2017-09-08 11:23 | Progress Note (SOAP) ---
Subjective Subjective/Events-last exam No acute events overnight. Vitals stable, blood pressure stable and off dobutamine for >24 hours. When seen at the time of exam, patient states "she is just terrible and hasn't been able to breathe all night and is itching all over and just really needs a shot of ativan". Nursing staff reports that pt has been complaining of similar all morning, but when reminded that she can use bipap for her shortness of breath, patient refuses and says she is breathing fine without it. Review of Systems Date Seen by Provider: Sep 08, 2017 Time Seen by Provider: 11:55 General: No Chills, No Night Sweats HEENT: No Dysphasia Pulmonary: Dyspnea, Cough Cardiovascular: Paroxysmal Noc. Dyspnea; No: Chest Pain Gastrointestinal: No: Nausea, Vomiting Genitourinary: No Dysuria, No Hematuria Neurological: No: Incoordination, Change in speech, Confusion, Seizures Focused Exam Lactate Level 09/06/17 13:05: Lactic Acid Level 1.25 Objective Exam Last Set of Vital Signs Vital Signs Date Time Temp Pulse Resp B/P (MAP) Pulse Ox O2 Delivery O2 Flow Rate FiO2 09/08/17 11:00 101 17 134/101 (112) 97 Nasal Cannula 3.00 09/08/17 08:00 98.1 09/08/17 07:35 34 Capillary Refill : Less Than 3 Seconds I&O Intake and Output 09/08/17 00:00 Intake Total 1612 ml Output Total 3325 ml Balance -1713 ml Intake Oral 1560 ml IV Total 52 ml Output Urine Total 3325 ml General: Alert, Oriented X3, No Acute Distress HEENT: Atraumatic, EOMI, Mucous Memb Moist/[place] Neck: Supple, No Thyromegaly Lungs: Other (diminished with scattered wheezes; no accessory muscle use) Heart: Regular Rate, Normal S1, Normal S2 Abdomen: Normal Bowel Sounds, Soft, No Tenderness, No Masses Extremities: No Cyanosis, No Edema, Normal Pulses Skin: No Rashes, No Significant Lesion Neuro: Normal Speech, Normal Tone, Sensation Intact, Cranial Nerves 3-12 NL Psych/Mental Status: Mental Status NL, Mood NL Results/Procedures Lab Laboratory Tests 09/07/17 12:40: Glucometer 272H 09/07/17 16:41: Glucometer 140H 09/08/17 03:30: White Blood Count 13.8H, Red Blood Count 5.36, Hemoglobin 12.9, Hematocrit 40, Mean Corpuscular Volume 74L, Mean Corpuscular Hemoglobin 24L, Mean Corpuscular Hemoglobin Concent 33, Red Cell Distribution Width 18.7H, Platelet Count 269, Mean Platelet Volume 11.7H, Neutrophils (%) (Auto) 65, Lymphocytes (%) (Auto) 23 , Monocytes (%) (Auto) 11, Eosinophils (%) (Auto) 2, Basophils (%) (Auto) 0, Neutrophils # (Auto) 8.9H, Lymphocytes # (Auto) 3.1, Monocytes # (Auto) 1.5H, Eosinophils # (Auto) 0.2, Basophils # (Auto) 0.0, Sodium Level 139, Potassium Level 4.0, Chloride Level 104, Carbon Dioxide Level 21, Anion Gap 14, Blood Urea Nitrogen 17, Creatinine 0.84, Estimat Glomerular Filtration Rate > 60, BUN/ Creatinine Ratio 20, Glucose Level 164H, Calcium Level 8.9, Phosphorus Level 3.8 , Magnesium Level 2.2, B-Type Natriuretic Peptide 137.5H 09/08/17 05:47: Microbiology 09/06/17 Blood Culture - Preliminary, Resulted No growth Radiology Date of Exam:09/08/17 CHEST 1 VIEW, AP/PA ONLY INDICATION: Dyspnea. COMPARISON: 09/07/2017. FINDINGS: Single frontal radiata view chest was obtained and demonstrate stable moderate cardiomegaly. Pulmonary vasculature is within normal limits. Lungs are clear. There is no focal consolidation, large effusion, nor pneumothorax. Bony structures show no gross acute abnormalities. IMPRESSION: 1. Stable moderate cardiomegaly, but no evidence of failure or focal infiltrate. IMPRESSION: 1. Marked cardiomegaly and pulmonary vascular congestion 2. Bibasilar opacities as noted above; correlate with symptoms. A small left effusion is possible. Assessment/Plan Assessment/Plan (1) CHF (congestive heart failure) Status: Acute Assessment & Plan: Markedly elevated BNP on admission along with vascular congestion on chest x-ray. Although patient reported no known history of heart failure, she had similar acute congestive heart failure episode 3 years ago on chart review. -Cardiology consult, appreciate recommendations -IV lasix 09/06- has had over 6 liters out and BNP decreasing, blood pressure low, lasix discontinued. Appreciate Cardiology recommendations. 09/07 - pt maintaining pressures off dobutamine, although somewhat soft; BP 70-90' s/50-60's; cardiology has recommended life vest, based on low EF of 15-20%; extensive discussion with patient and her daughter at the time of exam reviewing benefits of life vest and need for 3 month trial with medication and life vest before patient would be a candidate for ICD placement, reinforced that we appreciate and support cardiology recommendations for her cardiac care 09/08 - blood pressure now WNL, continue to appreciate cardiology recommendations and consultation Qualifiers: Qualified Codes: I50.21 - Acute systolic (congestive) heart failure (2) COPD with exacerbation Status: Acute Assessment & Plan: Unclear if exacerbation persistent at this time, will not increase home steroids as it appears her dyspnea is more related to her fluid overload and she has history of relatively recent GI bleed would prefer to minimize steroid use. -RT protocol, home inhaled LABA/steroid, was on prednisone taper outpatient, received 20 mg today, will confirm where in taper she is and dose appropriately 09/06- should be on 20 mg prednisone today and down to 10 mg 09/07 and 09/08 (3) Hyperglycemia Status: Acute Assessment & Plan: Has elevated blood sugars when on steroids. -Diabetic diet, blood sugar achs and sliding scale insulin. Home glimeperide. (4) History of GI bleed Status: Chronic Assessment & Plan: Monitor hemoglobin closely (5) Anxiety Status: Chronic Assessment & Plan: Has failed multiple treatments and declines Behavioral Health at this time. Requesting lorazepam IV inpatient. -IV lorazepam as needed during acute shortness of air episodes, will try to minimize as she will not be discharged with them due to history of overdose and substance abuse 09/06 overnight confused and agitated, given Haldol and started precedex drip. Will check ABG to rule out significant hypercapnia and if unremarkable, try titrating Precedex 09/07 - pt appears less confused this afternoon, precedex dc'ed by Dr. Trivedi, pt started on Risperdal, with haldol and/or morphine PRN agitation. Pt's daughter wondering why her PCP does not prescribe anything for her anxiety anymore but it is being treated in the hospital; briefly discussed that pt had a very complex medical picture, and pt's history made trying to give her appropriate medications on an outpatient basis difficult, however in the hospital she is being monitored, as is her medication. Discussed that we may discharge her with some medication if it is deemed necessary, but that it would only be until she could follow up with her PCP 09/08 - pt again asking for ativan; pt has multiple other medications ordered. one time dose of clonazepam PO, will schedule seroquel at HS to see if that helps pt sleep; given pt's history of overdose on benzos, will not put patient on benzos unless absolutely necessary and even then only for the shortest amount of time possible; have high suspicion that pt complaints of itching and increased shortness of breath will soon be blamed on the haldol and/or risperdol she is being given and listed as an allergy as a path for pt to obtain ativan instead. (6) DVT prophylaxis Status: Acute Assessment & Plan: Enoxaparin Clinical Quality Measures DVT/VTE Risk/Contraindication: Risk Factor Score Per Nursin RFS Level Per Nursing on Admit: 3=High Copy Copies To 1: [facility]/PAZ ANDERSON DO Sep 08, 2017 11:23
[2017-09-08] MEDS: ENOXAPARIN 40 MG/0.4 ML (LOVENOX) SYR SQ SCH (12:08)
[2017-09-08] MEDS ORDERED: clonazePAM 1 MG (KlonoPIN) TAB PO NR (12:15)
[2017-09-08] MEDS: hydrOXYzine (VISTARIL) 25 MG CAP PO PRN ×2 (13:31→20:26)
[2017-09-08] MEDS ORDERED: QUEtiapine 25 MG (SEROquel) TAB IMMEDIATE RELEASE PO SCH (21:00)
[2017-09-09 00:06] VITALS: BP 104/67
[2017-09-09] MEDS: hydrOXYzine (VISTARIL) 25 MG CAP PO PRN (01:57)
[2017-09-09] MEDS: RT-ALBUTEROL/IPRATROPIUM 3 ML (DUONEB) VIAL INH SCH ×4 (02:30→15:08)
[2017-09-09 03:41] VITALS: BP 116/82
[2017-09-09 06:48] LABS: BASOPHILS % (AUTO) 0 % (0-10); EOSINOPHILS # (AUTO) 0.2 10^3/uL (0.0-0.3); EOSINOPHILS % (AUTO) 1 % (0-10); HEMATOCRIT 38 % (35-52); HEMOGLOBIN 12.2 G/DL (11.5-16.0); LYMPHOCYTES # (AUTO) 2.6 X 10^3 (1.0-4.0); LYMPHOCYTES % (AUTO) 23 % (12-44); MEAN CORPUSCULAR HEMOGLOBIN 24 PG (25-34); MEAN CORPUSCULAR HGB CONC 32 G/DL (32-36); MEAN CORPUSCULAR VOLUME 75 FL (80-99); MONOCYTES # (AUTO) 1.2 X 10^3 (0.0-1.0); MONOCYTES % (AUTO) 11 % (0-12); NEUTROPHILS # (AUTO) 7.2 X 10^3 (1.8-7.8); NEUTROPHILS % (AUTO) 65 % (42-75); PLATELET COUNT 295 10^3/uL (130-400); RED BLOOD COUNT 5.09 10^6/uL (4.35-5.85); RED CELL DISTRIBUTION WIDTH 18.7 % (10.0-14.5); WHITE BLOOD COUNT 11.2 10^3/uL (4.3-11.0)
[2017-09-09] MEDS: inSUlin ASPART (NovoLOG) 1 UNIT/0.01 ML (CHARGE PER UNIT) SC SCH ×3 (06:49→16:24)
[2017-09-09] MEDS: PANTOPRAZOLE 40 MG (PROTONIX) TAB PO SCH (06:50)
[2017-09-09 07:12] LABS: BUN/CREATININE RATIO 14; CALCIUM 9.3 MG/DL (8.5-10.1); CARBON DIOXIDE 20 MMOL/L (21-32); CHLORIDE 106 MMOL/L (98-107); CREATININE SERUM 0.85 MG/DL (0.60-1.30); GFR ESTIMATED > 60; GLUCOSE 201 MG/DL (70-105); POTASSIUM 3.8 MMOL/L (3.6-5.0); SODIUM 139 MMOL/L (135-145)
[2017-09-09] MEDS: RT-ADVAIR HFA 115/21 MCG PER PUFF IH SCH (07:15)
--- NOTE | 2017-09-09 07:40 | Pulmonary Progress Note ---
Subjective Time Seen by Provider: 08:42 Subjective/Events-last exam c/o NPC and SOB Focused Exam Lactate Level 09/06/17 13:05: Lactic Acid Level 1.25 Exam Exam Vital Signs Date Time Temp Pulse Resp B/P (MAP) Pulse Ox O2 Delivery O2 Flow Rate FiO2 09/09/17 07:14 97 Nasal Cannula 3.00 09/09/17 03:41 99.0 92 20 116/82 (93) 97 Nasal Cannula 3.00 09/09/17 02:30 97 Nasal Cannula 3.00 09/09/17 01:00 91 09/09/17 00:06 96.9 93 19 104/67 (79) 93 Nasal Cannula 3.00 09/08/17 21:52 96 Nasal Cannula 3.00 09/08/17 20:25 Nasal Cannula 3.00 09/08/17 19:30 99.0 113 24 139/77 (97) 94 Nasal Cannula 3.00 09/08/17 19:26 98 Nasal Cannula 3.00 09/08/17 19:19 93 Room Air 09/08/17 19:00 114 09/08/17 17:43 61 20 104/64 (77) 95 Nasal Cannula 3.00 09/08/17 16:00 98.2 111 20 110/65 (80) 98 Nasal Cannula 3.00 09/08/17 14:28 95 Nasal Cannula 3.00 09/08/17 14:15 97.5 64 20 136/65 (88) 95 Nasal Cannula 3.00 09/08/17 14:12 114 09/08/17 14:00 108 22 156/106 (123) 96 Nasal Cannula 3.00 09/08/17 13:00 110 29 162/113 (129) 95 Nasal Cannula 3.00 09/08/17 13:00 110 09/08/17 12:00 Nasal Cannula 3.00 09/08/17 12:00 102 21 134/100 (111) 98 Nasal Cannula 3.00 09/08/17 11:00 101 17 134/101 (112) 97 Nasal Cannula 3.00 09/08/17 10:23 97 Nasal Cannula 3.50 09/08/17 10:00 105 24 147/96 (113) 97 Nasal Cannula 3.50 09/08/17 09:00 105 14 122/65 (84) 99 Nasal Cannula 3.50 09/08/17 08:00 106 14 121/86 (98) 97 Nasal Cannula 3.50 09/08/17 08:00 98.1 09/08/17 08:00 Nasal Cannula 3.00 I & O 09/09/17 07:00 Intake Total 1840 ml Output Total 2650 ml Balance -810 ml General Appearance: No Apparent Distress, WD/WN, Severe Distress HEENT: PERRL/EOMI, TMs Normal, Normal ENT Inspection, Pharynx Normal Neck: Full Range of Motion, Normal Inspection, Non Tender, Supple, Carotid Bruit, JVD Respiratory: Chest Non Tender, Crackles, Decreased Breath Sounds, Inspiration, Respiratory Distress Cardiovascular: Regular Rate, Rhythm, No Edema, No JVD, No Murmur, Normal Peripheral Pulses, Gallop/S3 Capillary Refill: Less Than 3 Seconds Gastrointestinal: normal bowel sounds, non tender, soft Extremity: Normal Capillary Refill, Normal Inspection, Normal Range of Motion, Non Tender, No Calf Tenderness, No Pedal Edema Neurologic/Psychiatric: Alert, Oriented x3, No Motor/Sensory Deficits, Normal Mood/Affect Skin: Normal Color, Warm/Dry Lymphatic: No Adenopathy Results Lab Laboratory Tests 09/08/17 03:30 09/09/17 06:35 Assessment/Plan Assessment/Plan Acute on chronic Respiratory failure - pt is requiring 3 liters oxygen -BIPAP PRN -Oxygen Hx of severe COPD oxygen dependent -Will continue current prednisone -SVNS Pulmonary edema with CHF EF 10-15% -Cardiology following -Lasix 40mg IV daily extreme ICU psychosis - hx of meth use -Haldol change to PRN -Risperdal BID - morphine Anxiety/depression Hx of methamphetamine use Persistent tobacco use Medical noncompliance CXR is stable. radiology and labs reviewed PT is ok from pulmonary standpoint for discharge. 232 WILLIAMS THOMAS DO Sep 09, 2017 07:40
[2017-09-09 08:00] VITALS: BP 105/67
[2017-09-09] MEDS ORDERED: FUROSEMIDE 20 MG (LASIX) TAB PO SCH (09:00)
[2017-09-09] MEDS: CARVEDILOL 3.125 MG (COREG) TABLET PO SCH (09:27)
[2017-09-09] MEDS: ASPIRIN E.C. 81 MG (ECOTRIN) TAB PO SCH (09:28)
[2017-09-09] MEDS: risperiDONE 1 MG (RisperDAL) TAB PO SCH (09:28)
[2017-09-09] MEDS: SACUBITRIL/VALSARTAN 24/26 MG (ENTRESTO) TABLET PO SCH (09:28)
[2017-09-09] MEDS: ENOXAPARIN 40 MG/0.4 ML (LOVENOX) SYR SQ SCH (10:59)
[2017-09-09] MEDS ORDERED: HYDROcodone/APAP 7.5 MG/325 MG (LORTAB, LORCET PLUS) TABLET PO PRN (11:00)
[2017-09-09 11:56] VITALS: BP 111/75
--- NOTE | 2017-09-09 13:18 | Cardiology Progress Note ---
Cardiology SOAP Progress Note Subjective: Baseline shortness of breath. Objective: I&O/Vital Signs 09/09/17 09/09/17 09/09/17 09/09/17 02:30 03:41 07:00 07:14 Temp 99.0 Pulse 92 92 Resp 20 B/P (MAP) 116/82 (93) Pulse Ox 97 97 97 O2 Delivery Nasal Cannula Nasal Cannula Nasal Cannula O2 Flow Rate 3.00 3.00 3.00 09/09/17 09/09/17 09/09/17 09/09/17 08:00 08:10 11:10 11:56 Temp 97.9 98.2 Pulse 94 96 Resp 20 18 B/P (MAP) 105/67 (80) 111/75 (87) Pulse Ox 96 95 96 O2 Delivery Nasal Cannula Nasal Cannula Nasal Cannula Nasal Cannula O2 Flow Rate 3.00 3.00 3.00 3.00 09/09/17 00:00 Intake Total 780 ml Output Total 1200 ml Balance -420 ml Weight (Pounds): 228 Weight (Ounces): 1.6 Weight (Calculated Kilograms): [id number] Constitutional: AAO x 3 Respiratory: No accessory muscle use, No respiratory distress, No chest tender , No chest expansion is symmetric; chest is bilaterally symmetric; No lungs clear to percussion; lungs clear to auscultation; No crackles, No rhonchi, No rales, No stridor, No wheezing, No pleural rub, No other Cardiovascular: regular rate-rhythm; No irregularly irregular, No extra beats, No parasternal heave is noted, No JVD, No edema, No bradycardia, No tachycardia , No point of maximal impulse, No cardiac thrills are palpable; S1 and S2; No gallop/S3, No gallop/S4, No diastolic murmur, No systolic murmur, No friction rub, No click, No other Gastrointestional: No tender, No soft, No round, No distended, No pulsatile mass, No organomegaly, No guarding, No rebound, No tenderness, No hernia, No mass, No audible bowel sounds, No abnormal bowel sounds, No abdominal bruits, No spleenomegaly, No other Extremities: No normal range of motion, No non-tender, No normal inspection, No pedal edema, No calf tenderness, No normal capillary refill, No pelvis stable , No calf tenderness, No inflammation, No pedal edema, No slow capillary refill , No swelling, No other, No abrasion, No clubbing, No cyanosis, No ecchymosis, No laceration, No no lower extremity edema bilateral, No significant edema, No tenderness, No wound Neurologic/Psychiatric: no motor/sensory deficits, alert, normal mood/affect, oriented x 3 Skin: No normal color, No warm/dry, No cyanosis, No cool, No diaphoresis, No damp, No ecchymosis, No jaundice, No mottled, No pallor, No rash, No tattoos/ piercings, No ulcerations, No rash on exposed areas, No ulcerations on exposed areas, No other Results/Procedures: Labs Laboratory Tests 09/08/17 15:36: Glucometer 184H 09/08/17 20:27: Glucometer 134H 09/09/17 05:37: Glucometer 184H 09/09/17 06:35: White Blood Count 11.2H, Red Blood Count 5.09, Hemoglobin 12.2, Hematocrit 38, Mean Corpuscular Volume 75L, Mean Corpuscular Hemoglobin 24L, Mean Corpuscular Hemoglobin Concent 32, Red Cell Distribution Width 18.7H, Platelet Count 295, Mean Platelet Volume 11.0H, Neutrophils (%) (Auto) 65, Lymphocytes (%) (Auto) 23 , Monocytes (%) (Auto) 11, Eosinophils (%) (Auto) 1, Basophils (%) (Auto) 0, Neutrophils # (Auto) 7.2, Lymphocytes # (Auto) 2.6, Monocytes # (Auto) 1.2H, Eosinophils # (Auto) 0.2, Basophils # (Auto) 0.0, Sodium Level 139, Potassium Level 3.8, Chloride Level 106, Carbon Dioxide Level 20L, Anion Gap 13, Blood Urea Nitrogen 12, Creatinine 0.85, Estimat Glomerular Filtration Rate > 60, BUN/ Creatinine Ratio 14, Glucose Level 201H, Calcium Level 9.3, Magnesium Level 2.0 09/09/17 10:54: Glucometer 199H Microbiology 09/06/17 Blood Culture - Preliminary, Resulted No growth A/P: Assessment/Dx: Acute respiratory failure Pulmonary edema Congestive heart failure, acute left ventricular systolic dysfunction, nonischemic cardiomyopathy Noncompliance with medication Plan: Status post acute respiratory failure and pulmonary edema, much improved. Continue Lasix., CXR is better, BNP is better. Resolved. Continues to be on oxygen. She was on home oxygen as well. Stable to discharge and follow-up with Dr. Auguste/Jocelyn Bernstein in the next one week. Acute change in mental status, resolved. Congestive heart failure, acute left ventricular systolic dysfunction, nonischemic cardiomyopathy, had a cardiac catheterization done in 2014 showing minor coronary arteries, cardiac enzymes are negative. Continue on current medications and monitor, still refusing LifeVest with Dr. Auguste. History of bradycardia with episode of transient complete heart block, occurred in 2014. Continue on low-dose beta blockers and evaluate her tolerance and response Hypertension, currently borderline hypotensive, secondary to medications, continue to monitor blood pressure. COPD, has history of severe COPD. Active smoker, now requiring 3L oxygen and BiPAP PRN, Dr. Trivedi is managing History of intermittent methamphetamine use. Has used it recently. Last urine drug screen was negative Obesity, BMI is 30, patient is at increased risk of sleep apnea.. History of noncompliance with medications. History of anxiety, depression. History of diabetes mellitus, not taking any medication, controlled by diet according to the patient. Thank you for your consultation. Please call me if you have any questions. Shaye Muniz MD, FACP, FACC, FSCAI, FHRS, CCDS Interventional Cardiology Cardiac Electrophysiology Vascular Medicine and Endovascular Interventions Jennifer MUNIZ MD Sep 09, 2017 13:18
[2017-09-09 16:52] VITALS: BP 99/67
--- NOTE | 2017-09-09 17:02 | Discharge Summary ---
Diagnosis/Chief Complaint Date of Admission Sep 04, 2017 at 21:59 Date of Discharge 09/09/17 Admission Diagnosis Admission Diagnosis Acute Systolic Heart Failure Discharge Diagnosis (1) CHF (congestive heart failure) Status: Acute Assessment & Plan: Markedly elevated BNP on admission along with vascular congestion on chest x-ray. Although patient reported no known history of heart failure, she had similar acute congestive heart failure episode 3 years ago on chart review. -Cardiology consult, appreciate recommendations -IV lasix 09/06- has had over 6 liters out and BNP decreasing, blood pressure low, lasix discontinued. Appreciate Cardiology recommendations. 09/07 - pt maintaining pressures off dobutamine, although somewhat soft; BP 70-90' s/50-60's; cardiology has recommended life vest, based on low EF of 15-20%; extensive discussion with patient and her daughter at the time of exam reviewing benefits of life vest and need for 3 month trial with medication and life vest before patient would be a candidate for ICD placement, reinforced that we appreciate and support cardiology recommendations for her cardiac care 09/08 - blood pressure now WNL, continue to appreciate cardiology recommendations and consultation 09/09 - cleared for discharge by cardiology; will have pt follow up with cardiology as outpatient to continue to discuss LifeVest and plan for continued medical management. Will discharge on current medications until follow up Qualifiers: Qualified Codes: I50.21 - Acute systolic (congestive) heart failure (2) COPD with exacerbation Status: Acute Assessment & Plan: Unclear if exacerbation persistent at this time, will not increase home steroids as it appears her dyspnea is more related to her fluid overload and she has history of relatively recent GI bleed would prefer to minimize steroid use. -RT protocol, home inhaled LABA/steroid, was on prednisone taper outpatient, received 20 mg today, will confirm where in taper she is and dose appropriately 09/06- should be on 20 mg prednisone today and down to 10 mg 09/07 and 09/08 (3) Hyperglycemia Status: Acute Assessment & Plan: Has elevated blood sugars when on steroids. -Diabetic diet, blood sugar achs and sliding scale insulin. Home glimeperide. (4) History of GI bleed Status: Chronic Assessment & Plan: Monitor hemoglobin closely (5) Anxiety Status: Chronic Assessment & Plan: Has failed multiple treatments and declines Behavioral Health at this time. Requesting lorazepam IV inpatient. -IV lorazepam as needed during acute shortness of air episodes, will try to minimize as she will not be discharged with them due to history of overdose and substance abuse 09/06 overnight confused and agitated, given Haldol and started precedex drip. Will check ABG to rule out significant hypercapnia and if unremarkable, try titrating Precedex 09/07 - pt appears less confused this afternoon, precedex dc'ed by Dr. Trivedi, pt started on Risperdal, with haldol and/or morphine PRN agitation. Pt's daughter wondering why her PCP does not prescribe anything for her anxiety anymore but it is being treated in the hospital; briefly discussed that pt had a very complex medical picture, and pt's history made trying to give her appropriate medications on an outpatient basis difficult, however in the hospital she is being monitored, as is her medication. Discussed that we may discharge her with some medication if it is deemed necessary, but that it would only be until she could follow up with her PCP 09/08 - pt again asking for ativan; pt has multiple other medications ordered. one time dose of clonazepam PO, will schedule seroquel at HS to see if that helps pt sleep; given pt's history of overdose on benzos, will not put patient on benzos unless absolutely necessary and even then only for the shortest amount of time possible; have high suspicion that pt complaints of itching and increased shortness of breath will soon be blamed on the haldol and/or risperdol she is being given and listed as an allergy as a path for pt to obtain ativan instead. 09/09 - pt being discharged today, will discharge on Risperdal BID until seen in clinic for follow up (6) DVT prophylaxis Status: Acute Assessment & Plan: Enoxaparin Chief Complaint/HPI Chief Complaint/HPI 52 yo female with COPD and severe anxiety presented to ER with worsening shortness of breath for 2 days. She was recently discharged after an admission for COPD exacerbation and reports she was taking all of her medications and inhalers and was doing pretty well on Thursday and Thursday of this week, but Thursday became more short of breath again. She denies fever. She states she has non-productive cough that is worse than her usual cough. She also complains of diffuse body pain in all her joints and muscles, she feels "tight". She had nausea and vomiting on Thursday and , hasn't vomited since , but continued to have nausea. She denies history of heart failure and reports normal catheterization a few years ago, does not recall having an abnormal echocardiogram in the past. Discharge Summary-Simple/Stand Consultations Discharge Physical Examination Allergies: Coded Allergies: buspirone (Verified Allergy, Mild, 05/02/17) Made"legs Shaky" amitriptyline (Verified Allergy, Unknown, 05/02/17) " MAKES ME DO WEIRD THINGS LIKE WALK IN MY SLEEP AND HAVE HALLUCINATIONS." Vitals & I&Os Vital Sign - Last 12Hours Date Time Temp Pulse Resp B/P (MAP) Pulse Ox O2 Delivery O2 Flow Rate FiO2 09/09/17 16:52 97.5 98 18 99/67 (78) 96 Nasal Cannula 3.00 09/08/17 07:35 34 Intake and Output 09/09/17 00:00 Intake Total 780 ml Output Total 1200 ml Balance -420 ml General Appearance: Alert, Oriented X3, Cooperative, No Acute Distress HEENT: Atraumatic, EOMI, Mucous Memb Moist/[place] Respiratory: Other (diminished, scattered wheezing) Cardiovascular: Regular Rate, Normal S1, Normal S2 Abdominal: Normal Bowel Sounds, Soft, No Tenderness Extremities: No Clubbing, No Cyanosis, No Edema Skin: No Rashes, No Significant Lesion Neuro: Normal Speech, Normal Tone, Sensation Intact, Cranial Nerves 3-12 NL Psych/Mental Status: Mental Status NL, Mood NL Hospital Course See final discharge diagnosis. Radiology Reviewed Date of Exam:09/08/17 CHEST 1 VIEW, AP/PA ONLY INDICATION: Dyspnea. COMPARISON: 09/07/2017. FINDINGS: Single frontal radiata view chest was obtained and demonstrate stable moderate cardiomegaly. Pulmonary vasculature is within normal limits. Lungs are clear. There is no focal consolidation, large effusion, nor pneumothorax. Bony structures show no gross acute abnormalities. IMPRESSION: 1. Stable moderate cardiomegaly, but no evidence of failure or focal infiltrate. IMPRESSION: 1. Marked cardiomegaly and pulmonary vascular congestion 2. Bibasilar opacities as noted above; correlate with symptoms. A small left effusion is possible. Discharge Condition at discharge stable Instructions to patient/family Please see electronic discharge instructions given to patient. Discharge Medications Reviewed and agree with Discharge Medication list on patient's Discharge Instruction sheet Clinical Quality Measures DVT/VTE Risk/Contraindication: Risk Factor Score Per Nursin RFS Level Per Nursing on Admit: 3=High Copy Copies To 1: [facility]/PAZ ANDERSON DO Sep 09, 2017 17:02
[2017-09-09] MEDS ORDERED: RISP1TAB3 PO (17:06)
[2017-09-09] MEDS ORDERED: FURO20TA4 PO (17:06)
[2017-09-09] MEDS ORDERED: ASPI-983 PO (17:06)
[2017-09-09] MEDS ORDERED: SACU1TAB PO (17:06)
--- NOTE | 2017-09-09 17:10 | Discharge Instructions ---
Discharge Inst-[facility] Discharge Medications New, Converted or Re-Newed RX: Transmitted to Pharmacy New Medications: Aspirin (Aspirin EC) 81 Mg Tablet.dr 81 MG PO DAILY for 30 Days, #30 TAB Furosemide (Furosemide) 20 Mg Tablet 20 MG PO DAILY for 10 Days, #10 TAB Risperidone (Risperidone) 1 Mg Tablet 1 MG PO BID for 10 Days, #20 TAB Sacubitril/Valsartan (Entresto 24 mg-26 mg Tablet) 1 Each Tablet 1 TAB PO BID for 10 Days, #20 TAB Continued Medications: Albuterol Sulfate (Ventolin Hfa) 1 Puff Puff 2 PUFF IH Q4H PRN for SHORTNESS OF BREATH, INHALER UNKNOWN LAST FILL DATE 1 PUFF = 90 MCG Dulaglutide (Trulicity) 0.75 Mg/0.5 Ml Pen.injctr 0.75 MG SQ Th, VIAL UNKNOWN LAST FILL DATE Fluticasone/Salmeterol (Advair 250-50 Diskus) 1 Each Blst.w.dev 1 PUFF IH BID, #1 INHALER 0 Refills Glimepiride (Glimepiride) 1 Mg Tablet 1 MG PO DAILY PRN for WHEN TAKING PREDNISONE, TAB Ipratropium/Albuterol Sulfate (Iprat-Albut 0.5-3(2.5) mg/3 ml) 3 Ml Ampul.neb 3 ML IH QID PRN for SHORTNESS OF BREATH, EACH HAS NOT PICKED UP YET Metoprolol Tartrate (Metoprolol Tartrate) 25 Mg Tablet 12.5 MG PO BID, TAB TAKES 1/2 (25MG) TABLET / LAST FILLED 04/16/17 #30 Tiotropium [place] (Spiriva) 1 Inh Aerp 1 CAP IH DAILY, #1 INHALER 0 Refills Patient Instructions Patient Instructions -take medication as prescribed -follow up with cardiology within 1 week -[facility] will contact you tomorrow with follow up appt Goal/Follow Up Appt: Cardiology - follow up within 1 week [facility] will contact you tomorrow with follow up appt Return to The Hospital For: chest pain or pressure, shortness of breath outside of normal and not resolved by your normal measures, nausea or vomiting that makes you unable to keep down clear liquids or medications for more than 12-24 hours, fever >101 that does not improve with tylenol or ibuprofen or that lasts more than 3 days, severe pain not controlled with routine measures, if directed by computer lab para professional provider or any other emergent complaints or concerns Activity & Diet Discharge Diet: ADA Diet, Cardiac Diet Activity as Tolerated: Yes Copy Copies To 1: [facility]/PAZ ANDERSON DO Sep 09, 2017 17:10
== END 2017-09-09 18:00 | disposition home or self-care (01) | DRG 291 ==
LOC: EDUNIT# 19:18 → ER 19:19 → ICU 21:59 → 4TH 09-08 14:08
PROVIDERS: ADMIT Family Medicine; ATTEND Family Medicine
DX: I11.0 Hypertensive heart disease with heart failure (principal); I50.21 Acute systolic (congestive) heart failure; J96.20 Acute and chronic respiratory failure, unspecified whether with hypoxia or hypercapnia; I42.8 Other cardiomyopathies; J43.9 Emphysema, unspecified; E11.65 Type 2 diabetes mellitus with hyperglycemia; I25.10 Atherosclerotic heart disease of native coronary artery without angina pectoris; E78.1 Pure hyperglyceridemia; T38.0X5A Adverse effect of glucocorticoids and synthetic analogues, initial encounter; F17.210 Nicotine dependence, cigarettes, uncomplicated; G44.40 Drug-induced headache, not elsewhere classified, not intractable; T39.1X5A Adverse effect of 4-Aminophenol derivatives, initial encounter; T39.315A Adverse effect of propionic acid derivatives, initial encounter; G47.00 Insomnia, unspecified; G47.30 Sleep apnea, unspecified; F15.10 Other stimulant abuse, uncomplicated; F41.9 Anxiety disorder, unspecified; F31.9 Bipolar disorder, unspecified; E66.9 Obesity, unspecified; M54.2 Cervicalgia; M25.519 Pain in unspecified shoulder; Z79.84 Long term (current) use of oral hypoglycemic drugs; Z91.14 Patient's other noncompliance with medication regimen; Z68.30 Body mass index [BMI] 30.0-30.9, adult; Z87.19 Personal history of other diseases of the digestive system; Z91.5 Personal history of self-harm
CPT/HCPCS: 36415; 36600; 51702; 71045; 80048; 80053; 80306; 81000; 82533; 82805; 82962; 83605; 83735; 83880; 84100; 84484; 85025; 85027; 87040; 93005; 93306; 94640; 94660; 94760; 96374; 96375; 96376

== ENCOUNTER 2017-09-18 09:59 | Day surgery (SDC) | payer SELFPAY ==
[2017-09-18] VITALS (12 sets, daily range): BP systolic 83–125; BP diastolic 50–80
[~2017-09-18] VITALS: Ht 175.3 cm; Wt 93.4 kg
[~2017-09-18 09:59] MED LIST changes: +ASPI-983 PO; +FURO20TA4 PO; +RISP1TAB3 PO; +SACU1TAB PO
[2017-09-18] MEDS ORDERED: NS IV 1000 ML 1,000 ML IV SCH ×2 (10:07→13:15)
[2017-09-18] MEDS ORDERED: LIDOCAINE 1% INJ 20 ML 20 ML VIAL ONE (10:13)
[2017-09-18] MEDS ORDERED: NS IV 1000 ML 1,000 ML ONE (10:13)
[2017-09-18] MEDS ORDERED: HEParin (CATH LAB) 2,000 ML IV ONE (10:13)
[2017-09-18 11:00] LABS: HEMOGLOBIN 13.4 G/DL (11.5-16.0); MEAN PLATELET VOLUME 11.4 FL (7.4-10.4); RED BLOOD COUNT 5.65 10^6/uL (4.35-5.85); RED CELL DISTRIBUTION WIDTH 19.8 % (10.0-14.5); WHITE BLOOD COUNT 11.6 10^3/uL (4.3-11.0)
[2017-09-18] MEDS ORDERED: LORazepam INJ 2 MG/ML (ATIVAN) VIAL ONE (11:07)
[2017-09-18] MEDS ORDERED: MIDAZOLAM 5 MG/5 ML (VERSED) VIAL ONE (11:09)
[2017-09-18] MEDS ORDERED: fentaNYL INJECTION 100 MCG/2 ML AMP ONE (11:09)
[2017-09-18] MEDS ORDERED: LORazepam INJ 2 MG/ML (ATIVAN) VIAL IVP PRN (11:12)
[2017-09-18 11:20] LABS: ALBUMIN 4.1 GM/DL (3.2-4.5); BILIRUBIN,TOTAL 0.6 MG/DL (0.1-1.0); CALCIUM 9.9 MG/DL (8.5-10.1); CREATININE SERUM 1.09 MG/DL (0.60-1.30); POTASSIUM 3.9 MMOL/L (3.6-5.0); TOTAL PROTEIN 6.8 GM/DL (6.4-8.2)
[2017-09-18 11:26] LABS: PROTHROMBIN TIME PATIENT 12.7 SEC (12.2-14.7)
--- NOTE | 2017-09-18 12:21 | Cardiac Procedure Note-CS/ASA ---
Pre-Procedure Note Pre-Op Procedure Note H&P Reviewed The H&P was reviewed, patient examined and no changes noted. Date H&P Reviewed: Sep 18, 2017 Time H&P Reviewed: 12:21 Conscious Sedation Pre-Proced Time Reviewed: 12:21 ASA Class: 3 Airway Mallampati Classification: ([place] appropriate class) I. II. III, IV Lungs Heart ASA score ASA 1: a normal healthy patient ASA 2: a patient with a mild systemic disease (mid diabetes, controlled hypertension, obesity ASA 3: a patient with a severe systemic disease that limits activity (angina , COPD, prior Myocardial infarction) ASA 4: a patient with an incapacitating disease that is a constant threat to life (CHF, renal failure) ASA 5: a moribund patient not expected to survive 24 hrs. (ruptured aneurysm) ASA 6: a declared brain patient whose organs are being harvested. For emergent operations, add the letter E after the classification Grade 1 Sedation Plan: Analgesia, Amnesia, Plan communicated to team members, Discussed options with patient/fam, Discussed risks with patient/fam Note The patient is an appropriate candidate to undergo the planned procedure, sedation, and anesthesia. The patient immediately re-assessed prior to indication. Jennifer SANDERS MD Sep 18, 2017 12:21 pm
[2017-09-18] MEDS ORDERED: VERAPAMIL 5 MG/2 ML (CALAN) VIAL IV ONE (12:24)
[2017-09-18] MEDS ORDERED: NITRO DRIP 25000 MCG/D5W 250 ML IV ONE (12:25)
[2017-09-18] MEDS ORDERED: HEParin 1000 UNIT/ML (10ML VIAL) FOR BOLUS ONE (12:25)
[2017-09-18] MEDS ORDERED: ADENOSINE 3 MG/1 ML (ADENOSCAN) 30ML VIAL IV ONE (12:47)
[2017-09-18] MEDS ORDERED: PATIENT MAY USE OWN MEDS, ALL PO SCH (13:15)
--- NOTE | 2017-09-18 13:16 | Coronary Angiography Report ---
Coronary Angiography Report DATE OF PROCEDURE: 09/18/17 INDICATION: Shortness of breath, recent admission for acute systolic congestive heart failure, new cardiomyopathy. PREOPERATIVE DIAGNOSIS: Shortness of breath, recent admission for acute systolic congestive heart failure, new cardiomyopathy. POSTOPERATIVE DIAGNOSIS: Nonischemic cardiomyopathy, mild to moderate CAD. HISTORY: This is a 52-year-old lady with echocardiogram in 2017 showing an EF of 50 percent. She was recently admitted with acute systolic congestive heart failure and an echocardiogram done on 09/05/2017 shows severely reduced LV function with an EF of 15-20 percent. Patient refused lifevest. She was started on aggressive medications for heart failure and cardiomyopathy. Significant CAD needs to be ruled out. Therefore, the patient was scheduled for coronary angiography. PROCEDURES PERFORMED: 1.Coronary angiography. 2.Left heart catheterization. 3. Aortic root injection. 4. Aortic arch angiography. 5. FFR to proximal LAD COMPLICATIONS: None. SPECIMENS: None. ESTIMATED BLOOD LOSS: 10 mL ANESTHESIA: Conscious sedation ANTICOAGULATION: IV heparin CONTRAST: 119 mL. FLUOROSCOPY: 8 minutes. FLOUROSCOPY DOSE: 708 mgy. PROCEDURE DETAILS: The patient is a 52 female and was brought to the pathology laboratory aides teacher after informed consent was taken. All the risks and complications were explained in detail; this included the risk of bleeding, vascular damage, stroke , HI and even . The patient was draped and prepped in the usual sterile fashion. Access was gained in the right radial artery with a 6 [place] sheath. Coronary angiography and left heart catheterization was performed with the Emery catheter. FINDINGS: 1.Left main: Patent. 2.LAD: Moderate proximal LAD stenosis. Stenosis severity 50 percent. Slow flow noted in the LAD. 3.Left circumflex artery: No significant CAD. Slow flow noted. 4.RCA: Mild mid disease. 5.Left heart catheterization: LV 73/7 mmHg. LVEDP 12 mmHg. Aortic pressure 79/ 59 mmHg. Severe LV systolic dysfunction with an EF of 15 percent. Global hypokinesis. No gradient across the aortic valve. 6. Aortic root injection: Was done since we could not find the ostium of the RCA. No evidence of dissection or aneurysm. No significant aortic regurgitation. 7. Aortic arch angiography: No evidence of dissection or aneurysm. Patent proximal segments of the large arteries including brachiocephalic artery, common carotid artery and subclavian artery. Recommendations: FFR is recommended to the proximal LAD. FFR details: We used the Emery catheter, pressure wire, IV heparin for anticoagulation. One ACT was done which was 196 seconds. The lesion was crossed with a pressure wire. Baseline FFR was 0.97. Adenosine was started at 140 g per KG per minute. This was continued for 20 half minutes. Lowest FFR was 0.90 which is acceptable therefore PCI was deferred. The wire was taken out and post- angiographic did not reveal any vascular complications. Right radial artery was closed with a vascular band. CONCLUSIONS: 1. Moderate LAD disease. 2. Nonischemic cardiomyopathy. Continue current cardiomyopathy and CHF medications. 3. Follow with Dr. Auguste. Patient refused lifevest. Shaye Muniz MD, FACP, FACC, [facility] Interventional Cardiology Jennifer MUNIZ MD Sep 18, 2017 13:16
--- NOTE | 2017-09-18 13:17 | Discharge Inst-Post CATH ---
Discharge Inst-CATH Post Cardiac Cath D/C Inst Follow Up/Plan Dr. Auguste in 3 weeks CARDIAC CATH DISCHARGE INSTRUCTIONS *Hold Metformin for 48 hours post heart cath. ACTIVITY * Go Home directly and rest. * Limit activity of the leg (or wrist if it was used) for 7 days including aerobics, swimming, jogging, bicycling, etc. * Restrict stair-climbing for 7 days if possible, if not, climb up with your non -cath leg, then bring together on the same step. * Avoid lifting, pushing, pulling or excessive movement of the affected extremity for 7 days. * Customary sexual activity may be resumed after 2 days-use caution not to use a position that strains or causes pain to the affected extremity. * No driving for 24 hours. * NO SMOKING. * Avoid straining for bowel movements for 7 days. * Gentle walking on level ground is allowed. * Returning to work will depend on the type of procedure and the results. Your doctor will discuss this with you. CALL YOUR DOCTOR FOR ANY OF THE FOLLOWING: *If bleeding from the puncture site occurs- Apply gentle pressure to site with clean cloth and call your doctor or EMS. * If a knot or lump forms under the skin, increases in size, or causes pain. * If bruising appears to be worsening or moving further down your leg instead of disappearing. * Temperature above 101 F. CARE OF YOUR GROIN INCISION; * Bruising or purple discoloration of the skin near the puncture site is common. * You may shower only, no bathtub bathing for 5 days. Be careful to avoid slipping as your leg may feel stiff. * If a closure device was used on your femoral artery, please see the attached guide regarding care of the device and your leg. * REMOVE the dressing from your groin the next day after your procedure in the shower. CARE OF YOUR WRIST INCISION; * Bruising or purple discoloration of the skin near the puncture site is common. * You may shower. * DO NOT submerge wrist. * Remove dressing in 24 hours. Jennifer SANDERS MD Sep 18, 2017 13:17
--- NOTE | 2017-09-18 13:22 | Cardiology Discharge Summary ---
Diagnosis/Chief Complaint Date of Admission 09/18/2017 Date of Discharge 09/18/2017 Admission Diagnosis Shortness of breath, systolic heart failure, new onset cardiomyopathy Final/Discharge Diagnosis Nonischemic cardio myopathy Chief Complaint/HPI Chief Complaint/HPI This is a 52-year-old lady with echocardiogram in 2017 shows an EF of 45-50 percent. Recently she was admitted for acute systolic congestive heart failure and echocardiogram done on 09/05/2017 shows an EF of 15-20 percent. She continues to have shortness of breath. Coronary angiography is recommended to rule out significant CAD as a cause of new cardiomyopathy. Discharge Summary Procedures Coronary angiography shows moderate proximal LAD stenosis. FFR 0.90 therefore PCI deferred. Mild mid RCA disease noted. Severely reduced LV systolic function with global hypokinesis Discharge Physical Examination Stable Hospital Course Unremarkable Pending Labs Laboratory Tests 09/18/17 10:28: White Blood Count 11.6, Red Blood Count 5.65, Hemoglobin 13.4, Hematocrit 42, Mean Corpuscular Volume 75, Mean Corpuscular Hemoglobin 24, Mean Corpuscular Hemoglobin Concent 32, Red Cell Distribution Width 19.8, Platelet Count 355, Mean Platelet Volume 11.4, Prothrombin Time 12.7, INR Comment 1.0, Activated Partial Thromboplast Time 27, Sodium Level 140, Potassium Level 3.9, Chloride Level 106, Carbon Dioxide Level 23, Anion Gap 11, Blood Urea Nitrogen 12, Creatinine 1.09, Estimat Glomerular Filtration Rate 53, BUN/Creatinine Ratio 11 , Glucose Level 139, Calcium Level 9.9, Total Bilirubin 0.6, Aspartate Amino Transf (AST/SGOT) 15, Alanine Aminotransferase (ALT/SGPT) 15, Alkaline Phosphatase 77, Total Protein 6.8, Albumin 4.1 Discussion & Recommendations Discussion The patient will continue on aggressive medical therapy for cardiomyopathy with metoprolol and Entresto. Continue aspirin and Lasix. Discussed with the patient. Patient will follow-up with Dr. Auguste for further heart failure management. Follow up appt.: Dr. Auguste in 3-4 weeks. Dicharge Diet: Low Sodium Diet Activity as Tolerated: Yes Home Medications Reviewed patient Home Medication Reconciliation performed by pharmacy medication reconciliations production technician and/or nursing. Patients Allergies have been reviewed. Discharge Home Medications: Reviewed and agree with Discharge Medication list on patient's Discharge Instruction sheet Condition at discharge Stable Instructions to patient/family Dr. Auguste in 3 weeks Jennifer SANDERS MD Sep 18, 2017 13:22
--- OUTSIDE RECORDS SUMMARY | 2017-09-18 19:29 | XMS REPORT ---
Author Author RADHA CAMERON Organization [facility] Address [address] [place] [address] Care Team Providers Care Community Health Worker Name Role Phone HUMBERTOSIA CAMERON Unavailable PROBLEMS Type Condition ICD9-CM Code [id number] Code Onset Dates Condition Status SNOMED Code Problem Generalized anxiety disorder F41.1 Active 04203631 Problem Migraine without aura and without status migrainosus, not intractable G43.009 Active 690997667 Problem Other emphysema J43.8 Active 28703228 Problem Anxiety disorder, unspecified F41.9 Active 434095664 Problem Chronic obstructive pulmonary disease with acute exacerbation J44.1 Active 913482059 Problem Methamphetamine use disorder, moderate, 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 Active 61374844 Problem Chronic bronchitis, unspecified chronic bronchitis type J42 Active 79012126 Problem Intractable cyclical vomiting with nausea G43.A1 Active 31765098 Problem Diabetes E11.9 Active 682337186 Problem 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 Active Problem Tobacco abuse Z72.0 Active 42610755 Problem Examination of eyes and vision V72.0 Active 165451969 Problem Memory loss R41.3 Active 81502739 Problem Chronic constipation K59.09 Active 061392659 Problem TMJ (sprain of temporomandibular joint) S03.4XXA Active 54332606 Problem Bipolar disorder, unspecified F31.9 Active 11849869 Problem Migraine G43.909 Active 67152589 Problem Bipolar disorder with depression F31.30 Active 34170531 ALLERGIES No Information ENCOUNTERS Encounter Location Date Diagnosis [facility] [address] [address] Sep, Acute congestive heart failure, unspecified heart failure type I50.9 and Anxiety disorder, unspecified F41.9 [facility] [id number] [address] Sep, Heart failure, unspecified HF chronicity, unspecified heart failure type I50.9 [facility] [address] [facility] [id number] [address] Sep, [facility] [address] [facility] [id number] [place] [address] Aug, Chronic obstructive pulmonary disease with acute exacerbation J44.1 [facility] [address] [facility] [id number] [place] [address] Aug, [facility] [address] [facility] [id number] [place] [address] Aug, [facility] [address] [facility] [id number] [place] [address] July, [facility] [address] [address] July, [facility] [address] [address] July, Diabetes E11.9 and Chronic obstructive pulmonary disease with acute exacerbation J44.1 [facility] [address] [address] Jun, Chronic obstructive pulmonary disease with acute exacerbation J44.1 ; Diabetes E11.9 and Tobacco abuse Z72.0 [facility] [address] [facility] [id number] [place] [address] Jun, [facility] [id number] [address] Jun, [facility] [address] [facility] [id number] [place] [address] May, [facility] [id number] [address] May, [facility] [address] [facility] [id number] [place] [address] May, [facility] [id number] [place] [address] 15183- 8486 16 May, 2017 [facility] [id number] [place] [address] 14622- 4218 15 May, 2017 [facility] [id number] [place] [address] 94311- 0425 14 May, 2017 Diarrhea, unspecified type R19.7 and Intractable cyclical vomiting with nausea G43.A1 [facility] [id number] [place] [address] 65349- 3099 12 May, 2017 [facility] [id number] [place] [address] 35923- 8437 05 May, 2017 [place] [id number] [place] [address] 07333- 4297 28 Apr, 2017 COPD exacerbation J44.1 ; Esophageal candidiasis B37.81 ; Other acute gastritis with hemorrhage K29.01 and Acute posthemorrhagic anemia D62 [place] [id number] [place] [address] 13251- 4605 21 Apr, 2017 Viral illness B34.9 and COPD exacerbation J44.1 [facility] [id number] [place] [address] 16764 -3075 Apr, Shortness of breath R06.02 and Pneumonia of both lower lobes due to infectious organism J18.9 [facility] [id number] [place] [address] 92424 -5317 Mar, COPD with acute exacerbation J44.1 [facility] [id number] [place] [address] 19592- 8353 Mar, Chronic obstructive pulmonary disease with acute exacerbation J44.1 and Diabetes E11.9 [facility] [id number] [place] [address] 67246- 7549 Mar, [facility] [id number] [place] [address] 75843- 6206 Mar, [facility] [address] [address] Mar, COPD exacerbation J44.1 [facility] [id number] [place] [address] 70648- 6382 Mar, [place] [address] [place] [address] 72900- 8135 Mar, Migraine G43.909 ; Hypokalemia E87.6 and Type 2 diabetes mellitus without complications E11.9 [place] [address] [place] [address] 13003- 3990 Feb, [place] [address] [place] [address] 33234- 8466 Feb, [place] [address] [place] [address] 47434- 7604 Feb, Methamphetamine use disorder, moderate, 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 ; Major depressive disorder, recurrent, moderate F33.1 ; Anxiety disorder, unspecified F41.9 and Tobacco abuse Z72.0 [place] [address] [place] [address] 20736- 6362 30 Jan, 2017 Major depressive disorder, recurrent, moderate F33.1 [place] [address] [place] [address] 64651- 2469 16 Jan, 2017 [place] [address] [place] [address] 82429- 7935 14 Jan, 2017 [place] [address] [place] [address] 26753- 4766 13 Jan, 2017 Major depressive disorder, recurrent, moderate F33.1 [place] [address] [place] [address] 96772- 9883 13 Jan, 2017 Major depressive disorder, recurrent, moderate F33.1 ; Anxiety disorder, unspecified F41.9 ; Methamphetamine use disorder, moderate, 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 and Tobacco abuse Z72.0 [place] [address] [place] [address] 90221- 3417 Jan, [facility] [address] [place] [address] 91729- 8440 Jan, Chronic obstructive pulmonary disease with acute exacerbation J44.1 and Diabetes E11.9 [facility] [address] [address] Jan, [facility] [id number] [place] [address] 24563- 9740 Jan, [facility] [address] [place] [address] 44275- 6137 Dec, Acute respiratory failure with hypoxia J96.01 ; Chronic bronchitis, unspecified chronic bronchitis type J42 and Tobacco use Z72.0 [facility] [id number] [place] [address] 85385- 3632 Dec, [facility] [id number] [place] [address] [id number] Nov, Dental caries K02.9 and Dental examination Z01.20 [facility] [address] [place] [address] 73341- 0173 Nov, Major depressive disorder, recurrent, moderate F33.1 ; Anxiety disorder, unspecified F41.9 and 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 [facility] [address] [place] [address] [id number] Oct, Dental examination Z01.20 [facility] [id number] [address] Oct, [facility] [id number] [place] [address] 97354- 0097 Oct, Diabetes E11.9 and Thrush B37.0 [facility] [address] [place] [address] 51972- 4657 Oct, [facility] [id number] [place] [address] 48094- 0316 Oct, [facility] [id number] [place] [address] 45960- 5981 Oct, [facility] [address] [place] [address] 28376- 3466 Sep, Major depressive disorder, recurrent, moderate F33.1 ; Anxiety disorder, unspecified F41.9 and Bipolar disorder, unspecified F31.9 [facility] [address] [place] [address] 19121- 1129 Sep, Acute exacerbation of chronic obstructive pulmonary disease (COPD) J44.1 and Migraine G43.909 [facility] [address] 16842- 6507 Sep, [facility] [address] [id number] Sep, [facility] [address] 47207- 6000 Sep, Acute exacerbation of chronic obstructive pulmonary disease (COPD) J44.1 [facility] [id number] [place] [address] 08708 -0431 Sep, Acute exacerbation of chronic obstructive pulmonary disease (COPD) J44.1 [facility] [id number] [place] [address] 07040- 9121 Aug, [facility] [address] [place] [address] 90653- 7156 Aug, Major depressive disorder, recurrent, moderate F33.1 ; Anxiety disorder, unspecified F41.9 and 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 [facility] [address] [place] [address] 20702- 9948 Aug, Wheezing R06.2 ; Non morbid obesity due to excess calories E66.09 ; Migraine without aura and without status migrainosus, not intractable G43.009 and Tobacco abuse Z72.0 [facility] [id number] [place] [address] [id number] Aug, 2016 Encounter for dental examination Z01.20 [facility] [address] [place] [address] 47226- 6456 02 Aug, 2016 Major depressive disorder, recurrent, moderate F33.1 ; Anxiety disorder, unspecified F41.9 and 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 [facility] [address] [place] [address] 27089- 6863 July, [facility] [id number] [place] [address] 60935- 1608 July, [facility] [address] [place] [address] 10532- 8101 July, [facility] [address] [place] [address] 06206- 1644 July, Diabetes E11.9 [facility] [id number] [place] [address] 57502- 9062 Jun, Major depressive disorder, recurrent, moderate F33.1 [facility] [address] [place] [address] 23722- 3843 Jun, Major depressive disorder, recurrent, moderate F33.1 ; Other 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.29 ; Generalized anxiety disorder F41.1 and Bipolar disorder, unspecified F31.9 [facility] [address] [place] [address] 12280- 8466 Jun, Diabetes E11.9 ; Migraine G43.909 ; Thrush B37.0 and Wheezing R06.2 [facility] [address] [id number] Jun, Dental examination Z01.20 [facility] [address] [place] [address] 02617- 8158 Jun, [facility] [address] [place] [address] 74030- 6956 Jun, Major depressive disorder, recurrent, moderate F33.1 ; Anxiety disorder, unspecified F41.9 and 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 [place] [address] [place] [address] 49519- 3219 Jun, [place] [address] [place] [address] 52287- 5890 Jun, Wheezing R06.2 [facility] [id number] [place] [address] [id number] Jun, Dental caries K02.9 [place] [address] 25895- 8620 Jun, Major depressive disorder, recurrent, moderate F33.1 ; Anxiety disorder, unspecified F41.9 and 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 [place] [address] [place] [address] 74083- 4732 Jun, RLQ abdominal pain R10.31 ; Diabetes E11.9 ; Obesity, unspecified obesity severity, unspecified obesity type E66.9 ; Wheezing R06.2 and Abnormal urinalysis R82.90 [place] [address] [place] [address] 52374- 2289 May, [place] [address] [place] [address] 56574- 5579 May, Well woman exam Z01.419 ; Breast cancer screening Z12.39 ; Cervical cancer screening Z12.4 ; Urinary frequency R35.0 ; Edema, unspecified type R60.9 and Chronic constipation K59.09 [place] [address] [place] [address] 97700- 0212 May, Major depressive disorder, recurrent, moderate F33.1 ; Anxiety disorder, unspecified F41.9 and 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 [facility] [address] [place] [address] [id number] May, Dental examination Z01.20 [place] [address] [place] [address] 44161- 2182 May, [place] [address] [place] [address] 38876- 2996 May, [place] [address] [place] [address] 14183- 1952 May, Chronic constipation K59.09 [place] [address] 69312- 8639 Apr, [place] [address] [place] [address] 91731- 4345 Apr, Major depressive disorder, recurrent, moderate F33.1 ; Anxiety disorder, unspecified F41.9 and 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 [place] [address] 53415- 1422 Apr, [place] [address] 85098- 5027 Mar, Major depressive disorder, recurrent, moderate F33.1 [place] [address] [place] [address] 66062- 1003 Mar, Major depressive disorder, recurrent, moderate F33.1 ; Generalized anxiety disorder F41.1 and Bipolar I disorder, most recent episode depressed with anxious distress F31.30 [place] [address] [place] [address] 11779- 9142 Mar, Diabetes E11.9 ; Non morbid obesity due to excess calories E66.09 ; Breast cancer screening Z12.39 and Encounter for immunization Z23 [place] [address] [place] [address] 43551- 3598 Mar, Major depressive disorder, recurrent, moderate F33.1 ; Anxiety disorder, unspecified F41.9 and 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 [place] [address] [place] [address] 61532- 4684 Mar, [facility] [address] [place] [address] 03141- 3884 Feb, Major depressive disorder, recurrent, moderate F33.1 ; Anxiety disorder, unspecified F41.9 and 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 [facility] [address] [place] [address] 70925- 6583 Feb, [facility] [address] [place] [address] 36669- 6147 Feb, [place] [address] [place] [address] 95709- 8580 Jan, Major depressive disorder, recurrent, moderate F33.1 ; Generalized anxiety disorder F41.1 and Bipolar disorder, current episode depressed, severe, without psychotic features F31.4 [place] [address] [place] [address] 04531- 7137 Jan, Major depressive disorder, recurrent, moderate F33.1 ; Anxiety disorder, unspecified F41.9 and 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 [place] [address] [place] [address] 83152- 8660 16 Jan, 2016 Bronchitis J40 [place] [address] [place] [address] 35216- 9893 15 Jan, 2016 [place] [address] [place] [address] 27394- 2693 Jan, [facility] [address] [place] [address] 76623- 5265 Jan, Elbow injury, right, initial encounter S59.901A ; Multiple contusions T14.8 and Cervical strain, acute, initial encounter S16.1XXA [facility] [address] [place] [address] 51475- 2160 Dec, Major depressive disorder, recurrent, moderate F33.1 ; Generalized anxiety disorder F41.1 and Bipolar disorder with depression F31.30 [place] [address] [address]- 8665 Dec, [facility] [address] [address]- 2832 Dec, [facility] [address] [address]- 2107 Dec, [facility] [address] [place] [address] 58893- 9495 Dec, [facility] [address] [address]- 6635 Dec, Yeast infection B37.9 [place] [address] [place] [address] 45028- 1216 Dec, Pneumonia of both lungs due to methicillin resistant Staphylococcus aureus (MRSA), unspecified part of lung J15.212 and Benzodiazepine overdose, accidental or unintentional, subsequent encounter T42.4X1D [place] [address] [address]- 2927 Dec, [facility] [address] [place] [address] 47181- 6557 Dec, [facility] [address] [place] [address] 86942- 8040 Dec, Knee pain, left M25.562 and Edema, unspecified type R60.9 [place] [address] [address]- 1150 Dec, [facility] [address] [place] [address] 73303- 2876 Dec, Anxiety disorder, unspecified F41.9 and Bipolar disorder, unspecified F31.9 [facility] [address] [address] Nov, Major depressive disorder, recurrent, moderate F33.1 ; Anxiety disorder, unspecified F41.9 and Other stimulant dependence with unspecified stimulant-induced disorder F15.29 [place] [address] [place] [address] 18594- 6890 Nov, [place] [address] [place] [address] 64128- 0156 Nov, Migraine without aura and without status migrainosus, not intractable G43.009 [place] [address] [place] [address] 13506- 6129 Nov, Migraine G43.909 [place] [address] [place] [address] 39368- 5352 Nov, [place] [address] [place] [address] 32757- 2006 Nov, Major depressive disorder, recurrent, moderate F33.1 ; Anxiety disorder, unspecified F41.9 and 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 [place] [address] [place] [address] 42691- 2150 Oct, Chronic constipation K59.09 and Obesity, unspecified obesity severity, unspecified obesity type E66.9 [place] [address] [place] [address] 56959- 2494 Oct, Obesity, unspecified obesity severity, unspecified obesity type E66.9 ; Chronic constipation K59.09 and Anxiety disorder, unspecified F41.9 [place] [address] [place] [address] 62214- 5965 Oct, [place] [place] [address] [place] [address] 28864- 2830 Sep, Diabetes E11.9 ; Edema, unspecified type R60.9 ; Varicose vein of leg I83.90 and Obesity, unspecified obesity severity, unspecified obesity type E66.9 [place] [address] [place] [address] 33186- 3395 Sep, Edema, unspecified type R60.9 ; Diabetes E11.9 and Knee pain , left M25.562 [place] [address] [address]- 7611 Sep, [facility] [address] [place] [address] 47759- 7105 Sep, [facility] [id number] [place] [address] 37332- 5421 Sep, Major depressive disorder, recurrent, moderate F33.1 ; Generalized anxiety disorder F41.1 and Bipolar disorder, unspecified F31.9 [facility] [address] [place] [address] 51536- 6914 Aug, Chondromalacia of left knee M94.262 [facility] [address] [place] [address] 75602- 4672 Aug, Major depressive disorder, recurrent, moderate F33.1 ; Anxiety disorder, unspecified F41.9 and 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 [facility] [address] [place] [address] 60147- 3773 Aug, [facility] [address] [place] [address] 45704- 9111 Aug, Osteoarthritis of left knee M17.9 [facility] [address] [place] [address] 09103- 8637 Aug, [facility] [address] [place] [address] 86921- 9067 July, Major depressive disorder, recurrent, moderate F33.1 ; Anxiety disorder, unspecified F41.9 and 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 [facility] [address] [place] [address] 89248- 3685 July, [facility] [address] [place] [address] 78539- 0173 July, Chronic constipation K59.09 [facility] [address] [place] [address] 36564- 9013 Jun, [facility] [address] [place] [address] 43495- 8212 Jun, [facility] [address] [place] [address] 31031- 3010 14 Jun, 2015 Osteoarthritis of left knee M17.9 [place] [address] [place] [address] 67614- 7410 Jun, [place] [address] [place] [address] 48857- 2517 Jun, Generalized anxiety disorder F41.1 ; Bipolar disorder, unspecified F31.9 and Major depressive disorder, recurrent, moderate F33.1 [place] [address] [place] [address] [id number]- [id number] 07 Jun, 2015 Migraine G43.909 [place] [address] [place] [id number] [place] [address] [id number]- [phone] 07 Jun, 2015 Left knee pain M25.562 ; Chronic constipation K59.09 ; Dry mouth R68.2 ; Yeast vaginitis B37.3 and Memory loss R41.3 [place] [address] [place] [id number] [place] [address] [phone] Jun, [place] [id number] [place] [address] [phone] 30 May, 2015 [place] [id number] [place] [address] 66627- 9565 May, [facility] [id number] [place] [address] 55285- 9975 May, [place] [id number] [place] [address] 82933- 3117 May, [facility] [id number] [place] [address] 51031- 3278 17 May, 2015 Acute bronchitis with COPD J44.0 ; Knee pain, left M25.562 and Encounter for tobacco use cessation counseling Z71.6 [place] [id number] [place] [address] 21347- 8891 May, [facility] [id number] [place] [address] 79619- 9014 Apr, Diabetes E11.9 ; TMJ (sprain of temporomandibular joint) S03.4XXA ; Tobacco abuse Z72.0 ; Migraine G43.909 and Anxiety F41.9 [place] [id number] [place] [address] 74058- 0605 Apr, Generalized anxiety disorder F41.1 and Bipolar disorder, unspecified F31.9 [place] [id number] [place] [address] 85330- 0553 Apr, Major depressive disorder, recurrent, moderate F33.1 ; Anxiety disorder, unspecified F41.9 and 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 [place] [id number] [place] [address] 68354- 5188 Apr, [place] [id number] [place] [address] 89765- 3056 Mar, [place] [id number] [place] [address] 64107- 3495 Feb, [place] [id number] [place] [address] 36309- 1759 14 Feb, 2015 Major depressive disorder, recurrent, moderate F33.1 ; Anxiety disorder, unspecified F41.9 and 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 [address] [id number] [place] [address] 14230- 7224 Feb, [place] [id number] [place] [address] 82522- 6009 Feb, Generalized anxiety disorder F41.1 and Bipolar disorder, unspecified F31.9 [place] [id number] [place] [address] 14507- 6061 Jan, [facility] [id number] [place] [address] 44753- 5009 Jan, [facility] [id number] [place] [address] 52781- 6905 Jan, Bipolar disorder, unspecified F31.9 and Generalized anxiety disorder F41.1 [facility] [address] 82905- 4556 Dec, [facility] [id number] [place] [address] 40544- 3590 Dec, Bipolar disorder, unspecified F31.9 and Generalized anxiety disorder F41.1 [place] [address] 48748- 9969 Dec, Generalized anxiety disorder F41.1 and Major depressive disorder, recurrent, moderate F33.1 [id number] [place] [address] 34697- 2966 Oct, Headache 784.0 ; Cough 786.2 ; Vomiting and diarrhea 787.03 and Dysuria 788.1 [address] [id number] [place] [address] 01162- 8388 Aug, [facility] [id number] [place] [address] 22033- 1525 Aug, Headache 784.0 and Shortness of breath 786.05 [facility] [id number] [place] [address] 36462- 9463 Aug, [facility] [id number] [place] [address] 73199- 2215 Aug, Migraine 346.90 [facility] [id number] [place] [address] 45314- 9012 Jun, [facility] [id number] [place] [address] 09291- 7446 Jun, [facility] [address] 54790- 1660 May, [facility] [place] [facility] [address] [id number] [place] [address]- 4690 May, [facility] [place] [facility] [address] [id number] [place] [address]- 5910 May, [facility] [place] [facility] [address] [id number] [place] [address]- 2381 May, [facility] [place] [facility] [address] [id number] [place] [address]- 7068 May, [facility] [place] [facility] [address] [id number] [place] [address]- 4437 May, [facility] [place] [facility] [address] [id number] [place] [address]- 3738 Apr, [facility] [place] [facility] [address] [facility] [id number] [place] [address]- 5041 Apr, [facility] [place] [facility] [address] [facility] [id number] [place] [address]- 4898 Apr, [facility] [place] [facility] [address] [id number] [place] [address]- 2737 Apr, [facility] [place] [facility] [address] [facility] [id number] [place] [address]- 1854 Apr, [facility] [place] [facility] [address] [facility] [id number] [place] [address]- 1776 Mar, [facility] [place] [facility] [address] [id number] [place] [address]- 8473 Mar, [facility] [place] [facility] [address] [id number] [place] [address]- 5884 Mar, [facility] [place] [facility] [address] [facility] [id number] [place] [address]- 0352 Mar, [facility] [place] [facility] [address] [facility] [id number] [place] [address]- 2328 Feb, [facility] [place] [facility] [address] [id number] [place] [address]- 8328 Feb, [facility] [place] [facility] [address] [id number] [place] [address]- 8361 Feb, [facility] [place] [facility] [address] [id number] [place] [address]- 2054 Feb, [facility] [place] [facility] [address] [id number] [place] [address]- 4420 Feb, [facility] [place] [facility] [address] [id number] [place] [address]- 8296 Feb, [facility] [place] [facility] [address] [id number] [place] [address]- 7525 Feb, [facility] [place] [facility] [address] [id number] [place] [address]- 5285 Feb, [facility] [place] [facility] [address] [id number] [place] [address]- 6498 Feb, [facility] [place] [facility] [address] [id number] [place] [address]- 4636 Feb, [facility] [place] [facility] [address] [id number] [place] [address]- 4321 Feb, [facility] [place] [facility] [address] [id number] [place] [address]- 0375 Feb, [facility] [place] [facility] [address] [id number] [place] [address]- 3472 Jan, [facility] [place] [facility] [address] [id number] [place] [address]- 4483 Jan, [facility] [place] [facility] [address] [id number] [place] [address]- 6578 10 Dec, 2013 [facility] [place] [facility] [address] [id number] [place] 6264 10 Dec, 2013 [facility] [place] [facility] [address] [id number] [place] [address]- 5525 Dec, [facility] [place] [facility] [address] [id number] [place] 7136 Dec, [facility] [place] [facility] [address] [id number] [place] [address]- 8176 Dec, [facility] [place] [facility] [address] [id number] [place] [address]- 2215 Dec, [facility] [place] [facility] [address] [id number] [place] [address]- 7081 Sep, [facility] [place] [facility] [address] [id number] [place] [address]- 6701 Sep, [facility] [place] [facility] [address] [id number] [place] [address]- 0590 Sep, [facility] [place] [facility] [address] [id number] [place] [address]- 5406 Sep, [facility] [place] [facility] [address] [id number] [place] [address]- 0304 Sep, [facility] [place] [facility] [address] [id number] [place] [address]- 6176 Sep, [facility] [place] [facility] [address] [id number] [place] [address]- 5534 Sep, [facility] [place] [facility] [address] [id number] [place] [address]- 6902 Sep, [facility] [place] [facility] [address] [id number] [place] [address]- 5698 Sep, [facility] [place] [facility] [address] [id number] [place] [address]- 8158 Sep, [facility] [place] [facility] [address] [id number] [place] [address]- 1659 Aug, [facility] [place] [facility] [address] [id number] [place] [address]- 6292 Aug, [facility] [place] [facility] [address] [id number] [place] [address]- 5192 Aug, [facility] [place] [facility] [address] [id number] [place] [address]- 9415 Aug, [facility] [place] [facility] [address] [id number] [place] [address]- 2523 Aug, [facility] [place] [facility] [address] [id number] [place] [address]- 9374 Aug, [facility] [place] [facility] [address] [id number] [place] [address]- 6915 Aug, [facility] [place] [facility] [address] [id number] [place] [address]- 2912 Aug, [facility] [place] [facility] [address] [id number] [place] [address]- 5146 Aug, [facility] [place] [facility] [address] [id number] [place] [address]- 7547 Aug, [facility] [place] [facility] [address] [id number] [place] [address]- 6383 Aug, [facility] [place] [facility] [address] [id number] [place] [address]- 8344 Aug, [facility] [place] [facility] [address] [id number] [place] [address]- 1729 Aug, [facility] [place] [facility] [address] [id number] [place] [address]- 7303 July, [facility] [place] [facility] [address] [id number] [place] [address]- 1769 July, [facility] [place] [facility] [address] [id number] [place] [address]- 6933 July, [facility] [place] [facility] [address] [id number] [place] [address]- 6866 July, [facility] [place] [facility] [address] [id number] [place] [address]- 3614 July, [facility] [place] [facility] [address] [id number] [place] [address]- 9770 July, [facility] [place] [facility] [address] [id number] [place] 7811 July, [facility] [place] [facility] [address] [id number] [place] [address]- 6596 Jun, [facility] [place] [facility] [address] [id number] [place] [address]- 2204 Jun, [facility] [place] [facility] [address] [id number] [place] [address]- 2542 Jun, [facility] [place] [facility] [address] [id number] [place] [address]- 2726 Jun, [facility] [place] [facility] [address] [id number] [place] [address]- 2609 Jun, [facility] [place] [facility] [address] [id number] [place] [address]- 8387 Jun, [facility] [place] [facility] [address] [id number] [place] [address]- 0685 Jun, [facility] [place] [facility] [address] [id number] [place] [address]- 5550 May, [facility] [place] [facility] [address] [id number] [place] [address]- 7919 17 May, 2013 [facility] [place] [facility] [address] [id number] [place] [address]- 0146 14 May, 2013 [facility] [place] [facility] [address] [id number] [place] [address]- 8859 14 May, 2013 [facility] [place] [facility] [address] [id number] [place] [address]- 2709 13 May, 2013 [facility] [place] [facility] [address] [id number] [place] 8035 13 May, 2013 [facility] [place] [facility] [address] [id number] [place] [address]- 2790 10 May, 2013 [facility] [place] [facility] [address] [id number] [place] [address]- 3972 10 May, 2013 [facility] [place] [facility] [address] [id number] [place] [address]- 0052 May, [facility] [place] [facility] [address] [id number] [place] [address]- 2096 Apr, [facility] [place] [facility] [address] [id number] [place] [address]- 4660 Apr, [facility] [place] [facility] [address] [id number] [place] [address]- 3367 Apr, [facility] [place] [facility] [address] [id number] [place] [address]- 3188 Apr, [facility] [place] [facility] [address] [id number] [place] [address]- 0197 Apr, [facility] [place] [facility] [address] [id number] [place] [address]- 0416 Apr, [facility] [place] [facility] [address] [id number] [place] [address]- 8968 Apr, [facility] [place] [facility] [address] [facility] [id number] [place] [address]- 7456 Apr, [facility] [place] [facility] [address] [id number] [place] [address]- 8015 Apr, [facility] [place] [facility] [address] [id number] [place] [address]- 1524 Apr, [facility] [place] [facility] [address] [id number] [place] [address]- 4311 Mar, [facility] [place] [facility] [address] [id number] [place] [address]- 9681 Mar, [facility] [place] [facility] [address] [id number] [place] [address]- 8890 Mar, [facility] [place] [facility] [address] [id number] [place] [address]- 4875 Mar, [facility] [place] [facility] [address] [id number] [place] [address]- 6709 Mar, [facility] [place] [facility] [address] [id number] [place] [address]- 9443 Mar, [facility] [place] [facility] [address] [id number] [place] [address]- 3290 Mar, [facility] [place] [facility] [address] [id number] [place] [address]- 8963 Mar, [facility] [place] [facility] [address] [id number] [place] [address]- 6869 Feb, [facility] [place] [facility] [address] [id number] [place] [address]- 2499 Feb, [facility] [place] [facility] [address] [id number] [place] [address]- 3827 Jan, [facility] [place] [facility] [address] [id number] [place] [address]- 5135 Jan, [facility] [place] [facility] [address] [id number] [place] [address]- 8749 Jan, [facility] [place] [facility] [address] [id number] [place] [address]- 0966 Jan, [facility] [place] [facility] [address] [id number] [place] [address]- 6758 Jan, [facility] [place] [facility] [address] [id number] [place] [address]- 0510 Jan, [facility] [place] [facility] [address] [id number] [place] [address]- 4524 Jan, [facility] [place] [facility] [address] [id number] [place] [address]- 6908 Jan, [facility] [place] [facility] [address] [id number] [place] [address]- 4401 13 Dec, 2012 [facility] [place] [facility] [address] [id number] [place] [address]- 7043 10 Dec, 2012 [facility] [place] [facility] [address] [id number] [place] [address]- 0275 10 Dec, 2012 [facility] [place] [facility] [address] [id number] [place] [address]- 3755 20 Nov, 2012 [facility] [place] [facility] [address] [id number] [place] [address]- 7986 13 Nov, 2012 [facility] [place] [facility] [address] [id number] [place] [address]- 9637 12 Nov, 2012 [facility] [place] [facility] [address] [id number] [place] [address]- 3173 09 Nov, 2012 [facility] [place] [facility] [address] [id number] [place] [address]- 4384 06 Nov, 2012 [facility] [place] [facility] [address] [id number] [place] [address]- 7323 06 Nov, 2012 [facility] [place] [facility] [address] [id number] [place] [address]- 6165 Oct, [facility] [place] [facility] [address] [id number] [place] [address]- 2342 Oct, [facility] [place] [facility] [address] [id number] [place] [address]- 7593 Sep, [facility] [place] [facility] [address] [id number] [place] [address]- 2545 Sep, [facility] [place] [facility] [address] [id number] [place] [address]- 7254 Sep, [facility] [place] [facility] [address] [id number] [place] [address]- 4071 Sep, [facility] [place] [facility] [address] [id number] [place] [address]- 5353 Sep, [facility] [place] [facility] [address] [id number] [place] [address]- 2219 Sep, [facility] [address] [id number] [place] [address]- 8803 Sep, [facility] [place] [facility] [address] [id number] [place] [address]- 7098 Aug, [facility] [place] [facility] [address] [id number] [place] [address]- 1389 14 Aug, 2012 [facility] [address] [id number] [place] [address]- 6934 Aug, [facility] [place] [facility] [address] [id number] [place] [address]- 5341 Aug, [facility] [address] [id number] [place] [address]- 1307 Aug, [facility] [address] [id number] [place] [address]- 7220 Aug, [facility] [address] [id number] [place] [address]- 0209 July, [facility] [address] [id number] [place] [address]- 2256 July, [facility] [place] [facility] [address] [id number] [place] [address]- 7718 July, [facility] [place] [facility] [address] [id number] [place] [address]- 1926 July, [facility] [place] [facility] [address] [id number] [place] [address]- 0051 July, [facility] [place] [facility] [address] [id number] [place] [address]- 0107 July, [facility] [place] [facility] [address] [id number] [place] [address]- 1455 Jun, [facility] [place] [facility] [address] [id number] [place] [address]- 5137 Jun, [facility] [address] [facility] [id number] [place] [address]- 6073 15 Jun, 2012 [facility] [place] [facility] [address] [facility] [id number] [place] [address]- 0597 Jun, [facility] [place] [facility] [address] [id number] [place] [address]- 3297 Jun, [facility] [place] [facility] [address] [facility] [id number] [place] [address]- 5414 Jun, [facility] [address] [facility] [id number] [place] [address]- 0722 Jun, [facility] [address] [id number] [place] [address]- 6464 May, [facility] [id number] [place] [address]- 9469 May, [facility] [place] [facility] [address] [facility] [id number] [place] [address]- 6661 Apr, [facility] [address] [id number] [address]- 2279 Apr, [facility] [place] [facility] [id number] [address]- 5806 Apr, [facility] [place] [facility] [address] [id number] [address]- 1589 Apr, [facility] [place] [facility] [address] [facility] [id number] [place] [address]- 2374 Apr, [facility] [place] [facility] [address] [facility] [id number] [place] [address]- 6908 08 Apr, 2012 [facility] [place] [facility] [address] [facility] [id number] [place] [address]- 7520 07 Apr, 2012 [facility] [place] [facility] [id number] [address]- 0880 07 Apr, 2012 [facility] [place] [facility] [address] [id number] [place] [address] Apr, [facility] [address] [id number] [place] [address] Apr, [facility] [address] [id number] [place] [address] Apr, [facility] [address] [id number] [place] [address] Mar, [facility] [address] [id number] [place] [address] Mar, [facility] [address] [id number] [place] [address] Mar, [facility] [address] [id number] [place] [address] Mar, [facility] [address] [id number] [place] [address] Mar, [facility] [address] [id number] [place] [address] Mar, [facility] [address] [id number] [place] [address] Mar, [facility] [address] [id number] [place] [address] Mar, [facility] [address] [id number] [place] [address] Mar, [facility] [address] [id number] [place] [address] Mar, [facility] [place] [facility] [address] [id number] [place] [address] Mar, [facility] [address] [id number] [place] [address] Mar, [facility] [address] [id number] [place] [address] Mar, [facility] [place] [facility] [address] [id number] [place] [address] Feb, [facility] [place] [facility] [address] [id number] [place] [address] Feb, [facility] [place] [facility] [address] [id number] [place] [address] Feb, [facility] [place] [facility] [address] [id number] [place] [address] Feb, [facility] [place] [facility] [address] [id number] [place] [address] Feb, [facility] [place] [facility] [address] [id number] [place] [address] Feb, [facility] [place] [facility] [address] [id number] [place] [address] Feb, [facility] [place] [facility] [address] [id number] [place] [address] Feb, [facility] [place] [facility] [address] [id number] [place] [address] Feb, [facility] [place] [facility] [address] [id number] [place] [address] Feb, [facility] [place] [facility] [address] [id number] [place] [address] Feb, [facility] [place] [facility] [address] [id number] [place] [address]- 67[address] Feb, [facility] [place] [facility] [address] [id number] [place] [address] Feb, [facility] [place] [facility] [address] [id number] [place] [address] 33[address] Feb, [facility] [place] [facility] [address] [id number] [place] [address] Feb, [facility] [place] [facility] [address] [id number] [place] [address] Jan, 2011 [facility] [place] [facility] [address] [id number] [place] [address] Jan, 2011 [facility] [place] [facility] [address] [id number] [place] [address] Jan, 2011 [facility] [place] [facility] [address] [id number] [place] [address] Jan, 2011 [facility] [place] [facility] [address] [id number] [place] [address]98 Dec, [facility] [place] [facility] [address] [id number] [place] [address] Dec, [facility] [place] [facility] [address] [id number] [place] [address] Dec, [facility] [place] [facility] [address] [id number] [place] [address]- [address]85 Dec, [facility] [place] [facility] [address] [id number] [place] [address] Dec, [facility] [place] [facility] [address] [id number] [place] [address] Dec, [facility] [place] [facility] [address] [facility] [id number] [place] [address]- [address] Dec, [facility] [place] [facility] [address] [id number] [place] [address] 1516 Dec, [facility] [place] [facility] [address] [id number] [place] [address] Dec, [facility] [place] [facility] [address] [id number] [place] [address]- [address] Dec, [facility] [place] [facility] [address] [id number] [place] [address]- [address] Dec, [facility] [place] [facility] [address] [id number] [place] [address]- [address] Nov, [facility] [place] [facility] [address] [id number] [place] [address]- [address] 24 Sep, 2011 [facility] [place] [facility] [address] [id number] [place] [address] 2546 20 Sep, 2011 [facility] [place] [facility] [address] [id number] [place] [address] 2546 19 Sep, 2011 [facility] [place] [facility] [address] [id number] [place] [address] 2546 17 Sep, 2011 [facility] [place] [facility] [address] [id number] [place] [address]- [address] 16 Sep, 2011 [facility] [place] [facility] [address] [id number] [place] [address] 14 Sep, 2011 [facility] [place] [facility] [address] [id number] [place] [address] 13 Sep, 2011 [facility] [place] [facility] [address] [id number] [place] [address] 284[address] 12 Sep, 2011 [facility] [place] [facility] [address] [id number] [place] [address] 07 Sep, 2011 [facility] [place] [facility] [address] [id number] [place] [address]- [address] 06 Sep, 2011 [facility] [place] [facility] [address] [id number] [place] [address] 254 06 Sep, 2011 [facility] [place] [facility] [address] [id number] [place] [address]- [address] 05 Sep, 2011 [facility] [place] [facility] [address] [id number] [place] [address] 2548 29 Oct, 2011 [facility] [place] [facility] [address] [id number] [place] [address]- [address]45 29 Oct, 2011 [facility] [place] [facility] [address] [id number] [place] [address]- 89[address] 28 Oct, 2011 [facility] [place] [facility] [address] [id number] [place] [address]- [address] Oct, [facility] [place] [facility] [address] [id number] [place] [address]- 130[address] Oct, [facility] [facility] [address] [id number] [place] [address] Oct, [facility] [place] [facility] [address] [id number] [place] [address] Oct, [facility] [place] [facility] [address] [id number] [place] [address] Oct, [facility] [place] [facility] [address] [id number] [place] [address] Oct, [facility] [place] [facility] [address] [id number] [place] [address] Oct, [facility] [place] [facility] [address] [id number] [place] [address] Oct, [facility] [place] [facility] [address] [id number] [place] [address] Sep, [facility] [place] [facility] [address] [id number] [place] [address] Sep, [facility] [place] [facility] [address] [id number] [place] [address] Sep, [facility] [place] [facility] [address] [id number] [place] [address] Sep, [facility] [place] [facility] [address] [id number] [place] [address] Sep, [facility] [place] [facility] [address] [id number] [place] [address] Sep, [facility] [place] [facility] [address] [id number] [place] [address] Aug, [facility] [place] [facility] [address] [id number] [place] [address] July, [facility] [place] [facility] [address] [id number] [place] [address] July, [facility] [place] [facility] [address] [id number] [place] [address] Jun, [facility] [place] [facility] [address] [id number] [place] [address] Jun, [facility] [place] [facility] [address] [id number] [place] [address]- [address] Jun, [facility] [place] [facility] [address] [id number] [place] [address] Jun, [facility] [place] [facility] [address] [id number] [place] [address] Jun, [facility] [place] [facility] [address] [id number] [place] [address] Jun, [facility] [place] [facility] [address] [id number] [place] [address] Jun, [facility] [place] [address] [id number] [place] [address]- [address] Jun, [facility] [place] [facility] [address] [id number] [place] [address]- [address] Jun, [facility] [place] [facility] [address] [id number] [place] [address]- [address] Jun, [facility] [place] [facility] [address] [id number] [place] [address] Jun, [facility] [place] [address] [id number] [place] [address] 19 May, 2011 [facility] [facility] [address] [id number] [place] [address]- [address] 16 May, 2011 [facility] [address] [id number] [place] [address]- [address] 14 May, 2011 [facility] [address] [id number] [place] [address] May, [facility] [address] [id number] [place] [address] Apr, [facility] [facility] [address] [id number] [place] [address] Apr, [facility] [address] [facility] [id number] [place] [address] Apr, [facility] [address] [id number] [place] [address]- [address] Apr, [facility] [address] [id number] [place] [address]- [address] Apr, [facility] [place] [facility] [address] [id number] [place] [address]- [address] Apr, [facility] [address] [id number] [place] [address] Apr, [facility] [address] [facility] [id number] [place] [address]- [address] Apr, [facility] [address] [facility] [id number] [place] [address] Mar, [facility] [address] [facility] [id number] [place] [address]- [address] Mar, [facility] [address] [facility] [id number] [place] [address]- [address] Mar, [facility] [facility] [address] [id number] [place] [address]- [address] 18 Mar, 2011 [facility] [address] [id number] [place] [address]- [address] 17 Mar, 2011 [facility] [address] [facility] [id number] [place] [address]- [address] 13 Mar, 2011 [facility] [address] [id number] [place] [address]- [address] Mar, [facility] [address] [id number] [place] [address]- [address] Mar, [facility] [facility] [address] [id number] [place] [address]- [address]683 Mar, [facility] [address] [id number] [place] [address]- [address]482 Mar, [facility] [facility] [address] [id number] [place] [address]- 4749 Mar, [facility] [facility] [address] [id number] [place] [address] 8470 Mar, [facility] [address] [id number] [place] [address]- 0468 Mar, [facility] [address] [id number] [place] [address]- 47[address] Mar, [facility] [address] [id number] [place] [address]- 0049 Mar, [facility] [address] [id number] [place] [address]- 89[address] Mar, [facility] [address] [id number] [place] [address]- [address] Feb, [facility] [address] [id number] [place] [address]- 1269 Feb, [facility] [address] [id number] [place] [address]- 3330 Feb, [facility] [address] [id number] [place] [address]- [address] Jan, [facility] [address] [id number] [place] [address]- 5569 Jan, [facility] [address] [id number] [place] [address] Jan, [facility] [address] [id number] [place] [address]- 2676 Dec, [facility] [address] [facility] [id number] [place] [address] 2546 Dec, [facility] [address] [facility] [id number] [place] [address] Nov, [facility] [address] [facility] [id number] [place] [address]- [address]46 Oct, [facility] [address] [facility] [id number] [place] [address]- [address] Oct, [facility] [address] [facility] [id number] [place] [address]- [address]46 Oct, [facility] [address] [id number] [address]46 Sep, [facility] [address] [id number] [address]46 Apr, [facility] [address] [id number] [place] [address] 25[address] Feb, [facility] [address] [facility] [id number] [place] [address] 2546 Jan, IMMUNIZATIONS No Known Immunizations SOCIAL HISTORY Never Assessed REASON FOR VISIT [facility] PLAN OF CARE VITAL SIGNS MEDICATIONS No Known Medications RESULTS No Results PROCEDURES No Known procedures INSTRUCTIONS MEDICATIONS ADMINISTERED No Known Medications MEDICAL (GENERAL) HISTORY Type Description Date Medical History COPD Medical History asthma Medical History heart cath Medical History Social phobia Medical History MRSA in right lung Medical History diabetes Medical History Echo 09/07/2017 Medical History History of MRSA infection Medical History congestive heart failure Surgical History heart cath 03/2015 Hospitalization History for surgeries Hospitalization History AMS 2/2 Benzos OD, pneumonia MRSA, [facility], Hypokalemia-- [facility] [place] 12/20/2015 Hospitalization History COPD exacerbation, Asthma-[facility] [place] 09/21/16 Hospitalization History COPD-[facility] [place] 12/30/2016 Hospitalization History [facility] and [facility] for inpatient-last around 2006 or so. Hospitalization History for COPD x2 Mar 2017 Hospitalization History Upper GI bleed at apr 2017 Hospitalization History [facility]- COPD Exacerbation, diarrhea 05/23/2017 Hospitalization History COPD exacerbation-[facility] 06/13/17 Hospitalization History [facility] 09/09/2017
--- OUTSIDE RECORDS SUMMARY | 2017-09-18 19:30 | XMS REPORT ---
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 Active Problem Thrush B37.0 Active 21059767 Problem TMJ (sprain of temporomandibular joint) S03.4XXA Active 24856839 Problem Tobacco abuse Z72.0 Active 11246817 Problem Migraine G43.909 Active 56632372 Problem History of MRSA infection Z86.14 Active 101189307 Problem Knee pain, left M25.562 Active 79892401 Problem Obesity, unspecified obesity severity, unspecified obesity type E66.9 Active 053607462 Problem Acute bronchitis with COPD J44.0 Active [id number] Problem Other emphysema J43.8 Active 67924711 Problem Chronic bronchitis, unspecified chronic bronchitis type J42 Active 09957420 Problem Migraine without aura and without status migrainosus, not intractable G43.009 Active 402361902 Problem COPD exacerbation J44.1 Active 835212408 Problem Chronic obstructive pulmonary disease with acute exacerbation J44.1 Active 731346278 Problem Chronic constipation K59.09 Active 782444053 Problem Dry mouth R68.2 Active 21551607 Problem Encounter for tobacco use cessation counseling Z71.6 Active 075953216 Problem Diabetes E11.9 Active 851036195 Problem Methamphetamine use disorder, moderate, 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 Active 01754259 Problem Intractable cyclical vomiting with nausea G43.A1 Active 14917642 Problem Viral illness B34.9 Active 26009898 Problem Left knee pain M25.562 Active 31607922 Problem Bipolar disorder, unspecified F31.9 Active 32260039 Problem Yeast vaginitis B37.3 Active 89744807 Problem Memory loss R41.3 Active 11728365 Problem Bipolar disorder with depression F31.30 Active 89357396 Problem Non morbid obesity due to excess calories E66.09 Active 133775545 Problem Bipolar disorder, current episode depressed, severe, without psychotic features F31.4 Active 01648318 Problem Generalized anxiety disorder F41.1 Active 37653595 ALLERGIES Substance Reaction Event Type Date Status Buspar 10 Mg Tablet made legs shaky Non Drug Allergy Mar, Active Benzodiazepines NARC ALERT Broke narc contract Non Drug Allergy Mar Active Narcotic NARC ALERT Broke Narc contract Non Drug Allergy Mar, Active amitriptyline OD on medication, causes parasonias Non Drug Allergy Mar, Active ENCOUNTERS Encounter Location Date Diagnosis [facility] [id number] [place] [address] 84634- 6470 Aug, Chronic obstructive pulmonary disease with acute exacerbation J44.1 [facility] [id number] [place] [address] 40737- 6383 Aug, [facility] [facility] [id number] [place] [address] 68736- 5776 Aug, [facility] [id number] [place] [address] 66183- 3120 July, [facility] [id number] [place] [address] 91965- 0891 July, [facility] [id number] [place] [address] 62886- 6527 July, Diabetes E11.9 and Chronic obstructive pulmonary disease with acute exacerbation J44.1 [facility] [id number] [place] [address] 92972- 3718 Jun, Chronic obstructive pulmonary disease with acute exacerbation J44.1 ; Diabetes E11.9 and Tobacco abuse Z72.0 [facility] [facility] [id number] [place] [address] 17980- 9639 Jun, [facility] [address] [address] Jun, [facility] [id number] [place] [address] 88887- 6352 May, [facility] [address] [place] [address] 16540- 0799 May, [facility] [id number] [place] [address] 11226 -9013 17 May, 2017 [facility] [id number] [place] [address] 81453- 5810 16 May, 2017 [facility] [id number] [place] [address] 57246- 0832 15 May, 2017 [facility] [id number] [place] [address] 10612- 8463 14 May, 2017 Diarrhea, unspecified type R19.7 and Intractable cyclical vomiting with nausea G43.A1 [facility] [address] [place] [address] 68185- 4123 12 May, 2017 [facility] [id number] [place] [address] 46075- 2283 05 May, 2017 [facility] [address] [place] [address] 54210- 9004 28 Apr, 2017 COPD exacerbation J44.1 ; Esophageal candidiasis B37.81 ; Other acute gastritis with hemorrhage K29.01 and Acute posthemorrhagic anemia D62 [facility] [address] [place] [address] 43494- 4491 Apr, Viral illness B34.9 and COPD exacerbation J44.1 [facility] [address], [place] [address] Apr, Shortness of breath R06.02 and Pneumonia of both lower lobes due to infectious organism J18.9 [facility] [id number] [place] [address] 35105 -2423 Mar, COPD with acute exacerbation J44.1 [facility] [id number] [place] [address] 98319- 8382 Mar, Chronic obstructive pulmonary disease with acute exacerbation J44.[address] [facility] [id number] [place] [address] 60607- 6507 Mar, [facility] [address] 33059- 6569 Mar, [facility] [address] 03940 -9106 Mar, COPD exacerbation J44.1 [facility] [facility] [id number] [place] [address] 98479- 8383 Mar, [facility] [facility] [address] 29377- 5946 Mar, Migraine G43.909 ; Hypokalemia E87.6 and Type 2 diabetes mellitus without complications E11.9 [facility] [id number] [place] [address] 07858- 8055 Feb, [facility] [facility] [id number] [place] [address] 14803- 1066 Feb, [facility] [id number] [place] [address] 81148- 6315 Feb, Methamphetamine use disorder, moderate, 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 ; Major depressive disorder, recurrent, moderate F33.1 ; Anxiety disorder, unspecified F41.9 and Tobacco abuse Z72.0 [facility] [id number] [place] [address] 25516- 6739 Jan, Major depressive disorder, recurrent, moderate F33.1 [facility] [facility] [id number] [place] [address] 13381- 5744 Jan, [place] [facility] [address] 19744- 2954 14 Jan, 2017 [place] [id number] [place] [address] 35040- 4025 Jan, Major depressive disorder, recurrent, moderate F33.1 [facility] [id number] [place] [address] 80852- 5636 Jan, Major depressive disorder, recurrent, moderate F33.1 ; Anxiety disorder, unspecified F41.9 ; Methamphetamine use disorder, moderate, 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 and Tobacco abuse Z72.0 [place] [id number] [place] [address] 15562- 3849 07 Jan, 2017 [place] [id number] [place] [address] 18488- 1948 Jan, Chronic obstructive pulmonary disease with acute exacerbation J44.1 and Diabetes E11.[address] 75573- 5777 Jan, [place] [id number] [place] [address] 11913- 2035 Jan, [place] [id number] [place] [address] 33740- 5261 Dec, Acute respiratory failure with hypoxia J96.01 ; Chronic bronchitis, unspecified chronic bronchitis type J42 and Tobacco use Z72.0 [place] [id number] [place] [address] 05885- 3691 Dec, [facility] [id number] [place] [address] [id number] Nov, Dental caries K02.9 and Dental examination Z01.20 [place] [id number] [place] [address] 83256- 1606 05 Nov, 2016 Major depressive disorder, recurrent, moderate F33.1 ; Anxiety disorder, unspecified F41.9 and 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 [address], [place] [address]- 9316 Oct, [facility] [id number] [place] [address] 43249- 1176 Oct, Diabetes E11.[address] [facility] [id number] [place] [address] 21798- 0914 Oct, [facility] [id number] [place] [address] 94800- 4018 Oct, [facility] [id number] [place] [address] 89885- 0505 Oct, [facility] [address] [place] [address] 65888- 2143 Sep, Major depressive disorder, recurrent, moderate F33.1 ; Anxiety disorder, unspecified F41.9 and Bipolar disorder, unspecified F31.9 [facility] [address] [place] [address] 62287- 6348 Sep, Acute exacerbation of chronic obstructive pulmonary disease (COPD) J44.[address] [facility] [address], [place] [address]- 7012 Sep, [facility] [id number] [place] [address] [id number] Sep, [facility] [address] [place] [address] 79611- 7654 Sep, Acute exacerbation of chronic obstructive pulmonary disease (COPD) J44.1 [facility] [address] [place] [address] 70736 -2821 Sep, Acute exacerbation of chronic obstructive pulmonary disease (COPD) J44.1 [facility] [address], [place] [address]- 8895 Aug, 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 [id number] [place] [address] 84785- 3984 19 Aug, 2016 Wheezing R06.2 ; Non morbid obesity due to excess calories E66.09 ; Migraine without aura and without status migrainosus, not intractable G43.009 and Tobacco abuse Z72.0 [facility] [address] [place] [address] [id number] 14 Aug, 2016 Encounter for dental examination Z01.20 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 [id number] [place] [address] 06174- 9993 July, [facility] [id number] [place] [address] 13270- 6919 18 Jul, 2016 [facility] [id number] [place] [address] 96398- 3134 July, [facility] [id number] [place] [address] 77299- 4593 July, Diabetes E11.9 [facility] [id number] [place] [address] 84770- 7505 Jun, Major depressive disorder, recurrent, moderate F33.1 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 [address] [place] [address]- 9142 Jun, Diabetes E11.9 ; Migraine G43.909 ; Thrush B37.0 and Wheezing R06.2 [facility] [id number] [place] [address] [id number] Jun, Dental examination Z01.20 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 [id number] [place] [address]- 1016 May, [facility] [address] 76693- 8760 May, Well woman exam Z01.419 ; Breast cancer screening Z12.39 ; Cervical cancer screening Z12.4 ; Urinary frequency R35.0 ; Edema, unspecified type R60.9 and Chronic constipation K59.09 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 [id number] [place] [address] 71336- 5263 May, [facility] [id number] [place] [address] 72295- 0766 May, [facility] [id number] [place] [address] 57778- 6465 May, Chronic constipation K59.09 [facility] [id number] [place] [address] 71938- 5259 Apr, 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 [address] [place] [address] 55571- 9182 Apr, [facility] [id number] [place] [address] 85690- 5602 Mar, Major depressive disorder, recurrent, moderate F33.1 [facility] [address] [place] [address] 81922- 6872 Mar, Major depressive disorder, recurrent, moderate F33.1 ; Generalized anxiety disorder F41.1 and Bipolar I disorder, most recent episode depressed with anxious distress F31.30 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 [place] [id number] [place] [address] 78962- 8065 Mar, [place] [address] 31698- 8720 Feb, Major depressive disorder, recurrent, moderate F33.1 ; Anxiety disorder, unspecified F41.9 and 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 [place] [address] 52550- 0414 Feb, [place] [id number] [place] [address] 71695- 3170 Feb, [place] [id number] [place] [address] 18036- 2381 Jan, Major depressive disorder, recurrent, moderate F33.1 ; Generalized anxiety disorder F41.1 and Bipolar disorder, current episode depressed, severe, without psychotic features F31.4 [facility] [id number] [place] [address] 54693- 8556 Jan, Major depressive disorder, recurrent, moderate F33.1 ; Anxiety disorder, unspecified F41.9 and 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 [address], [place] [address]- 3698 Jan, Elbow injury, right, initial encounter S59.901A ; Multiple contusions T14.8 and Cervical strain, acute, initial encounter S16.1XXA [facility] [address] [place] [address] 94682- 8506 Dec, Major depressive disorder, recurrent, moderate F33.1 ; Generalized anxiety disorder F41.1 and Bipolar disorder with depression F31.30 [facility] [address], [place] [address]- 6611 Dec, [facility] [address] [place] [address] 60642- 4139 Dec, [facility] [address] [place] [address] 59737- 1666 Dec, [facility] [address], [place] [address]- 1373 Dec, [facility] [address], [place] [address]- 9582 Dec, Yeast infection B37.9 [facility] [id number] [address]- 0243 Dec, Pneumonia of both lungs due to methicillin resistant Staphylococcus aureus (MRSA), unspecified part of lung J15.212 and Benzodiazepine overdose, accidental or unintentional, subsequent encounter T42.4X1D [facility] [id number] [address]- 5870 Dec, [facility] [address] [place] [address] 20965- 2483 Dec, [facility] [id number] [address]- 3302 07 Dec, 2015 Knee pain, left M25.562 and Edema, unspecified type R60.9 [place] [address] [place] [address] 61468- 4719 Dec, [place] [id number] [place] [address]- 5176 Dec, Anxiety disorder, unspecified F41.9 and Bipolar disorder, unspecified F31.9 [place] [id number] [place] [address] 48178- 7693 Nov, Major depressive disorder, recurrent, moderate F33.1 ; Anxiety disorder, unspecified F41.9 and 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 [place] [id number] [place] [address] 77599- 2591 Nov, [place] [id number] [place] [address] 74559- 7054 Nov, Migraine without aura and without status migrainosus, not intractable G43.009 [place] [id number] [place] [address] 32278- 8085 Nov, Migraine G43.909 [place] [id number] [place] [address] 27729- 6563 Nov, [place] [id number] [place] [address] 93779- 1677 Nov, Major depressive disorder, recurrent, moderate F33.1 ; Anxiety disorder, unspecified F41.9 and 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 [id number] [place] [address] 75685- 3023 Sep, Diabetes E11.9 ; Edema, unspecified type R60.9 ; Varicose vein of leg I83.90 and Obesity, unspecified obesity severity, unspecified obesity type E66.9 [facility] [id number] [place] [address] 14967- 0631 Sep, Edema, unspecified type R60.9 ; Diabetes E11.9 and Knee pain , left M25.562 [place] [id number] [place] [address] 35495- 5117 Sep, [place] [id number] [place] [address] 11262- 8400 Sep, [place] [id number] [place] [address] 39315- 4252 Sep, Major depressive disorder, recurrent, moderate F33.1 ; Generalized anxiety disorder F41.1 and Bipolar disorder, unspecified F31.9 [place] [id number] [place] [address] 46252- 8730 Aug, Chondromalacia of left knee M94.262 [place] [id number] [place] [address] 35975- 6256 Aug, Major depressive disorder, recurrent, moderate F33.1 ; Anxiety disorder, unspecified F41.9 and 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 [id number] [place] [address] 63091- 6240 Aug, 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 [id number] [place] [address] 22014- 5599 July, [facility] [id number] [place] [address] 25674- 1691 July, Chronic constipation K59.09 [facility] [id number] [place] [address] 66274- 7509 Jun, [facility] [id number] [place] [address] 60709- 2970 Jun, [facility] [id number] [place] [address] 73776- 5302 Jun, Osteoarthritis of left knee M17.9 [facility] [id number] [place] [address] 00182- 4018 Jun, [facility] [id number] [place] [address] 93629- 7084 Jun, Generalized anxiety disorder F41.1 ; Bipolar disorder, unspecified F31.9 and Major depressive disorder, recurrent, moderate F33.1 [facility] [id number] [place] [address] 95211- 7634 Jun, Migraine G43.909 [facility] [id number] [place] [address] 94672- 8294 Jun, Left knee pain M25.562 ; Chronic constipation K59.09 ; Dry mouth R68.2 ; Yeast vaginitis B37.3 [address] Memory [address]3 [facility] [id number] [place] [address] 84235- 7410 05 Jun, 2015 [facility] [id number] [place] [address] 37531- 1214 May, [facility] [address] [address] 2410 May, [facility] [id number] [place] [address] 31201- 4462 May, [facility] [id number] [place] [address] 18975- 5376 May, [facility] [id number] [place] [address] 95068- 6654 May, Acute bronchitis with COPD J44.0 ; Knee pain, left M25.562 and Encounter for tobacco use cessation counseling Z71.6 [facility] [id number] [place] [address] 24430- 5160 May, [facility] [id number] [place] [address] 47381- 7863 Apr, Diabetes E11.9 ; TMJ (sprain of temporomandibular joint) S03.4XXA ; Tobacco abuse Z72.0 ; Migraine G43.[address] 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 [id number] [place] [address] 38929- 1367 Apr, [facility] [id number] [place] [address] 45567- 5975 Mar, [facility] [id number] [place] [address] 99275- 3776 Feb, 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 [facility] [id number] [place] [address] 76277- 8799 Feb, [facility] [id number] [place] [address] 92101- 3092 Feb, Generalized anxiety disorder F41.1 and Bipolar disorder, unspecified F31.9 [facility] [id number] [place] [address] 27581- 1310 Jan, [facility] [address] 18173- 5964 Jan, [facility] [id number] [place] [address] 88426- 7419 Jan, Bipolar disorder, unspecified F31.9 and Generalized anxiety disorder F41.1 [facility] [id number] [place] [address] 48508- 6971 Dec, [place] [id number] [place] [address] 58335- 6800 Dec, Bipolar disorder, unspecified F31.9 and Generalized anxiety disorder F41.1 [place] [id number] [place] [address] 38226- 3605 Dec, Generalized anxiety disorder F41.1 and Major depressive disorder, recurrent, moderate F33.1 [facility] [id number] [place] [address] 71545- 3316 Oct, Headache 784.0 ; Cough 786.2 ; Vomiting and diarrhea 787.03 and Dysuria 788.1 [facility] [id number] [place] [address] 47654- 9910 Aug, [place] [id number] [place] [address] 08099- 5262 Aug, Headache 784.0 and Shortness of breath 786.05 [facility] [place] [facility] [address] [id number] [place] [address]- 9608 Aug, [facility] [place] [facility] [address] [facility] [id number] [place] [address]- 8148 18 Aug, 2014 Migraine 346.90 [facility] [place] [facility] [address] [facility] [id number] [place] [address]- 1962 14 Jun, 2014 [facility] [place] [facility] [address] [id number] [address]- 1253 Jun, [facility] [place] [facility] [address] [facility] [id number] [place] [address]- 9710 May, [facility] [place] [facility] [address] [facility] [id number], [place] [address]- 9492 May, [facility] [place] [facility] [id number] [address]- 9481 May, [facility] [place] [facility] [address] [facility] [id number], [place] [address]- 1885 May, [facility] [place] [facility] [address] [facility] [id number], [place] [address]- 3751 May, [facility] [place] [facility] [address] [facility] [id number] [address]- 7103 May, [facility] [place] [facility] [address] [facility] [id number], [place] [address]- 3510 Apr, [facility] [place] [facility] [address] [facility] [id number], [place] [address]- 3504 Apr, [facility] [place] [facility] [address] [facility] [id number], [place] [address]- 9117 Apr, [facility] [place] [facility] [address] [facility] [id number], [place] [address]- 3049 Apr, [facility] [place] [facility] [address] [id number] [address]- 1672 Apr, [facility] [place] [facility] [address] [facility] [id number] [place] [address]- 1285 Mar, [facility] [address] [id number] [place] [address]- 3634 Mar, [facility] [address] [id number] [place] [address]- 0196 Mar, [facility] [address] [id number] [place] [address]- 3013 Mar, [facility] [address] [id number] [place] [address]- 8809 Feb, [facility] [address] [id number] [place] [address]- 3529 Feb, [facility] [address] [id number] [place] [address]- 8710 Feb, [facility] [address] [id number] [place] [address]- 1346 Feb, [facility] [address] [id number] [place] [address]- 9709 Feb, [facility] [address] [id number] [place] [address]- 3498 Feb, [facility] [address] [facility] [id number] [place] [address]- 2452 Feb, [facility] [address] [id number] [place] [address]- 1849 Feb, [facility] [address] [id number] [place] [address]- 5292 Feb, [facility] [place] [facility] [address] [id number] [place] [address]- 5170 Feb, [facility] [place] [facility] [address] [id number] [place] [address]- 0363 Feb, [facility] [address] [id number] [place] 4683 Feb, [facility] [place] [facility] [address] [id number] [place] [address]- 3701 Jan, [facility] [place] [facility] [address] [id number] [place] [address]- 5437 Jan, [facility] [place] [facility] [address] [id number] [place] [address]- 1539 Dec, [facility] [place] [facility] [address] [id number] [place] [address]- 2544 Dec, [facility] [place] [facility] [address] [id number] [place] [address]- 2118 Dec, [facility] [place] [facility] [address] [id number] [place] [address]- 6432 Dec, [facility] [place] [facility] [address] [id number] [place] [address]- 3908 Dec, [facility] [place] [facility] [address] [id number] [place] [address]- 5168 Dec, [facility] [place] [facility] [address] [id number] [place] [address]- 7969 Sep, [facility] [place] [facility] [address] [id number] [place] [address]- 2660 Sep, [facility] [place] [facility] [address] [id number] [place] [address]- 9809 Sep, [facility] [place] [facility] [address] [id number] [place] [address]- 0938 Sep, [facility] [place] [facility] [address] [id number] [place] [address]- 4463 Sep, [facility] [place] [facility] [address] [id number] [place] [address]- 7613 Sep, [facility] [place] [facility] [address] [id number] [place] [address]- 3183 Sep, [facility] [place] [facility] [address] [id number] [place] [address]- 8159 Sep, [facility] [place] [facility] [address] [id number] [place] [address]- 3192 Sep, [facility] [place] [facility] [address] [id number] [place] [address]- 4751 Sep, [facility] [place] [facility] [address] [id number] [place] [address]- 7552 24 Aug, 2013 [facility] [place] [facility] [address] [id number] [place] [address]- 8192 Aug, [facility] [place] [facility] [address] [id number] [place] [address]- 3563 Aug, [facility] [place] [facility] [address] [id number] [place] [address]- 3661 Aug, [facility] [place] [facility] [address] [id number] [place] [address]- 6713 Aug, [facility] [place] [facility] [address] [id number] [place] [address]- 0974 Aug, [facility] [place] [facility] [address] [id number] [place] [address]- 9732 Aug, [facility] [place] [facility] [address] [id number] [place] [address]- 8391 Aug, [facility] [place] [facility] [address] [id number] [place] [address]- 0803 Aug, [facility] [place] [facility] [address] [id number] [place] [address]- 3802 Aug, [facility] [place] [facility] [address] [id number] [place] [address]- 9080 Aug, [facility] [place] [facility] [address] [id number] [place] [address]- 1160 Aug, [facility] [place] [facility] [address] [id number] [place] [address]- 6789 Aug, [facility] [place] [facility] [address] [id number] [place] [address]- 5683 July, [facility] [place] [facility] [address] [id number] [place] [address]- 3450 July, [facility] [place] [facility] [address] [id number] [place] [address]- 4866 July, [facility] [place] [facility] [address] [id number] [place] [address]- 8792 July, [facility] [place] [facility] [address] [id number] [place] [address]- 9270 July, [facility] [place] [facility] [address] [id number] [place] [address]- 1637 July, [facility] [place] [facility] [address] [id number] [place] 4469 July, [facility] [place] [facility] [address] [id number] [place] [address]- 9656 Jun, [facility] [place] [facility] [address] [id number] [place] [address]- 9700 Jun, [facility] [place] [facility] [address] [id number] [place] [address]- 6135 Jun, [facility] [place] [facility] [address] [id number] [place] [address]- 7355 Jun, [facility] [place] [facility] [address] [id number] [place] [address]- 6457 Jun, [facility] [place] [facility] [address] [id number] [place] 8746 Jun, [facility] [place] [facility] [address] [id number] [place] 9266 Jun, [facility] [place] [facility] [address] [id number] [place] [address]- 4976 May, [facility] [place] [facility] [address] [id number] [place] [address]- 1213 17 May, 2013 [facility] [place] [facility] [address] [id number] [place] [address]- 3341 14 May, 2013 [facility] [place] [facility] [address] [id number] [place] [address]- 4790 14 May, 2013 [facility] [place] [facility] [address] [id number] [place] [address]- 2176 13 May, 2013 [facility] [place] [facility] [address] [id number] [place] [address]- 2543 13 May, 2013 [facility] [place] [facility] [address] [id number] [place] [address]- 4940 10 May, 2013 [facility] [place] [facility] [address] [id number] [place] [address]- 0313 10 May, 2013 [facility] [place] [facility] [address] [facility] [id number] [place] [address]- 9677 07 May, 2013 [facility] [place] [facility] [address] [id number] [place] [address]- 1325 26 Apr, 2013 [facility] [place] [facility] [address] [id number] [place] [address]- 8052 26 Apr, 2013 [facility] [place] [facility] [address] [facility] [id number] [place] [address]- 3335 18 Apr, 2013 [facility] [place] [facility] [address] [facility] [id number] [place] [address]- 9158 15 Apr, 2013 [facility] [place] [facility] [address] [id number] [place] [address]- 6028 15 Apr, 2013 [facility] [place] [facility] [address] [id number] [place] [address]- 4920 11 Apr, 2013 [facility] [place] [facility] [address] [facility] [id number] [place] [address]- 0364 05 Apr, 2013 [facility] [place] [facility] [address] [facility] [id number] [place] [address]- 5177 05 Apr, 2013 [facility] [place] [facility] [address] [id number] [place] [address]- 5858 05 Apr, 2013 [facility] [place] [facility] [address] [id number] [place] [address]- 4307 Apr, [facility] [place] [facility] [address] [id number] [place] [address]- 9662 Mar, [facility] [place] [facility] [address] [id number] [place] [address]- 7207 Mar, [facility] [place] [facility] [address] [id number] [place] [address]- 9218 Mar, [facility] [place] [facility] [address] [id number] [place] [address]- 9251 Mar, [facility] [place] [facility] [address] [id number] [place] [address]- 9448 Mar, [facility] [place] [facility] [address] [id number] [place] [address]- 1281 Mar, [facility] [place] [facility] [address] [id number] [place] [address]- 7861 Mar, [facility] [place] [facility] [address] [id number] [place] [address]- 9525 Mar, [facility] [place] [facility] [address] [id number] [place] [address]- 0438 Feb, [facility] [place] [facility] [address] [id number] [place] [address]- 3277 Feb, [facility] [place] [facility] [address] [id number] [place] [address]- 4878 Jan, [facility] [place] [facility] [address] [id number] [place] [address]- 8867 Jan, [facility] [place] [facility] [address] [id number] [place] [address]- 3711 15 Jan, 2013 [facility] [place] [facility] [address] [id number] [place] [address]- 8726 Jan, [facility] [place] [facility] [address] [id number] [place] [address]- 7384 Jan, [facility] [place] [facility] [address] [id number] [place] [address]- 7724 Jan, [facility] [place] [facility] [address] [facility] [id number] [place] [address]- 9564 Jan, [facility] [place] [facility] [address] [id number] [place] [address]- 7812 Jan, [facility] [place] [facility] [address] [id number] [place] [address]- 5746 Dec, [facility] [place] [facility] [address] [id number] [place] [address]- 7925 Dec, [facility] [place] [facility] [address] [id number] [place] [address]- 0867 Dec, [facility] [place] [facility] [address] [id number], [place] [address]- 6526 20 Nov, 2012 [facility] [place] [facility] [address] [id number] [place] [address]- 5866 13 Nov, 2012 [facility] [place] [facility] [address] [id number] [place] [address]- 2616 12 Nov, 2012 [facility] [place] [facility] [address] [id number], [place] [address]- 2375 Nov, [facility] [place] [facility] [address] [id number], [place] [address]- 2548 Nov, [facility] [place] [facility] [address] [id number] [place] [address]- 6798 Nov, [facility] [place] [facility] [address] [id number], [place] [address]- 6377 Oct, [facility] [place] [facility] [address] [id number], [place] [address]- 1910 Oct, [facility] [place] [facility] [address] [id number] [place] [address]- 1117 Sep, [facility] [address] [id number] [place] [address]- 7709 Sep, [facility] [place] [facility] [address] [id number] [place] [address]- 4343 Sep, [facility] [address] [id number] [place] [address]- 8294 Sep, [facility] [place] [facility] [address] [id number] [place] [address]- 4005 Sep, [facility] [place] [facility] [address] [id number] [place] [address]- 1770 Sep, [facility] [place] [facility] [address] [id number] [place] [address]- 7161 Sep, [facility] [address] [id number] [place] [address]- 9344 Aug, [facility] [address] [id number] [place] [address]- 7709 Aug, [facility] [place] [facility] [address] [id number] [place] [address]- 8885 Aug, [facility] [address] [id number] [place] [address]- 5436 Aug, [facility] [place] [facility] [address] [id number] [place] [address] Aug, [facility] [place] [facility] [address] [id number] [place] [address] Aug, [facility] [place] [facility] [address] [id number] [place] [address] July, [facility] [place] [facility] [address] [id number] [place] [address] July, [facility] [place] [facility] [address] [id number] [place] [address] July, [facility] [address] [id number] [place] [address] July, [facility] [address] [id number] [place] [address] July, [facility] [address] [id number] [place] [address] July, [facility] [address] [id number] [place] [address] Jun, [facility] [address] [id number] [place] [address] Jun, [facility] [address] [id number] [place] [address] Jun, [facility] [address] [id number] [place] [address] Jun, [facility] [address] [id number] [place] [address] Jun, [facility] [address] [id number] [place] [address] Jun, [facility] [address] [id number] [place] [address] Jun, [facility] [address] [id number] [place] [address] May, [facility] [address] [id number], [place] [address] May, [facility] [address] [id number] [place] [address] Apr, [facility] [place] [facility] [address] [id number] [place] [address] Apr, [facility] [place] [facility] [address] [id number] [place] [address] Apr, [facility] [address] [id number], [place] [address] 18 Apr, 2012 [facility] [address] [id number] [place] [address] 12 Apr, 2012 [facility] [address] [id number] [place] [address]46 08 Apr, 2012 [facility] [address] [id number] [place] [address] 07 Apr, 2012 [facility] [address] [id number] [place] [address] 07 Apr, 2012 [facility] [address] [id number] [place] [address] 06 Apr, 2012 [facility] [address] [id number] [place] [address]- [address] 06 Apr, 2012 [facility] [address] [id number] [place] [address] 03 Apr, 2012 [facility] [address] [id number] [place] [address]- [address] 30 Mar, 2012 [facility] [address] [id number] [place] [address] Mar, [facility] [address] [facility] [id number] [place] [address] Mar, [facility] [address] [id number] [place] [address] 25[address] Mar, [facility] [address] [id number] [place] [address]- [address] Mar, [facility] [place] [facility] [address] [id number] [place] [address]- [address] Mar, [facility] [place] [facility] [address] [id number] [place] [address] 15 Mar, 2012 [facility] [address] [id number] [place] [address] 15 Mar, 2012 [facility] [address] [id number] [place] [address] Mar, [facility] [place] [facility] [address] [id number] [place] [address] Mar, [facility] [place] [facility] [address] [id number] [place] [address] 133[address] Mar, [facility] [place] [facility] [address] [id number] [place] [address] Mar, [facility] [place] [facility] [address] [id number] [place] [address] Mar, [facility] [place] [facility] [address] [id number] [place] [address] 47[address] Feb, [facility] [place] [facility] [address] [id number] [place] [address]- [address] Feb, [facility] [place] [facility] [address] [id number] [place] [address] 18 Feb, 2012 [facility] [place] [facility] [address] [id number] [place] [address]- [address]26 Feb, [facility] [place] [facility] [address] [id number] [place] [address] Feb, [facility] [place] [facility] [address] [id number] [place] [address]- [address] Feb, [facility] [place] [facility] [address] [id number], [place] [address] 10 Feb, 2012 [facility] [place] [facility] [address] [id number] [place] [address]- 78[address] 10 Feb, 2012 [facility] [place] [facility] [address] [id number] [place] [address]- 7084 Feb, [facility] [place] [facility] [address] [id number] [place] [address]- 84[address] 10 Feb, 2012 [facility] [place] [facility] [address] [id number], [place] [address] Feb, [facility] [place] [facility] [address] [id number] [place] [address] Feb, [facility] [place] [facility] [address] [facility] [id number], [place] [address] Feb, [facility] [place] [facility] [address] [facility] [id number] [place] [address]- [address] Feb, [facility] [place] [facility] [address] [facility] [id number] [address] Feb, [facility] [place] [facility] [address] [facility] [id number] [place] [address], [place] [address] 4917 Jan, [facility] [place] [facility] [address] [facility] [id number], [place] [address] Jan, [facility] [place] [facility] [id number] [address] Jan, [facility] [place] [facility] [address] [facility] [id number], [place] [address] Jan, [facility] [place] [facility] [address] [id number] [address] Dec, [facility] [place] [facility] [address] [id number], [place] [address] Dec, [facility] [place] [facility] [address] [facility] [id number], [place] [address] Dec, [facility] [place] [facility] [address] [facility] [id number], [place] [address] 138[address] Dec, [facility] [place] [facility] [address] [facility] [id number], [place] [address] Dec, [facility] [place] [facility] [address] [facility] [id number], [place] [address] 268[address] Dec, [facility] [place] [facility] [id number], [place] [address] Dec, [facility] [place] [facility] [address] [id number] [place] [address]- 49[address] 16 Dec, 2011 [facility] [place] [facility] [address] [id number] [place] [address]- [address]6 07 Dec, 2011 [facility] [place] [facility] [address] [id number] [place] [address] 2546 04 Dec, 2011 [facility] [place] [facility] [address] [id number] [place] [address] 2546 03 Dec, 2011 [facility] [place] [facility] [address] [id number] [place] [address] 2549 25 Sep, 2011 [facility] [place] [facility] [address] [id number] [place] [address]- 9546 24 Sep, 2011 [facility] [place] [facility] [address] [id number] [place] [address]- 5946 20 Sep, 2011 [facility] [place] [facility] [address] [id number] [place] [address]- 8839 19 Sep, 2011 [facility] [place] [facility] [address] [id number] [place] [address] 2542 17 Sep, 2011 [facility] [place] [facility] [address] [id number] [place] [address]- 2547 16 Sep, 2011 [facility] [place] [facility] [address] [id number] [place] [address] 254 14 Sep, 2011 [facility] [place] [facility] [address] [id number] [place] [address] 2548 13 Sep, 2011 [facility] [place] [facility] [address] [id number] [place] [address] 2543 12 Sep, 2011 [facility] [place] [facility] [address] [id number] [place] [address] 2546 07 Sep, 2011 [facility] [place] [facility] [address] [id number] [place] [address] 2546 06 Sep, 2011 [facility] [place] [facility] [address] [id number] [place] [address]- 7048 Nov, [facility] [place] [facility] [address] [id number] [place] [address]- 5193 Nov, [facility] [place] [facility] [address] [id number] [place] [address]- 7678 Oct, [facility] [place] [facility] [address] [id number] [place] [address]- 0077 Oct, [facility] [place] [facility] [address] [id number] [place] [address]- 8514 Oct, [facility] [place] [facility] [address] [id number] [place] [address]- 7015 Oct, [facility] [place] [facility] [address] [id number] [place] [address]- 4974 Oct, [facility] [place] [facility] [address] [id number] [place] [address]- 6862 Oct, [facility] [place] [facility] [address] [id number] [place] [address]- 0605 Oct, [facility] [place] [facility] [address] [id number] [place] [address]- 7313 Oct, [facility] [place] [facility] [address] [id number] [place] [address]- 8757 Oct, [facility] [place] [facility] [address] [id number] [place] [address]- 3690 Oct, [facility] [place] [facility] [address] [id number] [place] [address]- 7423 Oct, [facility] [place] [facility] [address] [id number] [place] [address]- 9679 Sep, [facility] [place] [facility] [address] [id number] [place] [address]- 3219 Sep, [facility] [place] [facility] [address] [id number] [place] [address]- 9359 Sep, [facility] [place] [facility] [address] [id number] [place] [address]- 1696 Sep, [facility] [address] [id number] [place] [address]- 6634 Sep, [facility] [place] [facility] [address] [id number] [place] [address]- 3366 Sep, [facility] [address] [id number] [place] [address]- 3547 Aug, [facility] [place] [facility] [address] [id number] [place] [address] 1971 July, [facility] [place] [facility] [address] [id number] [place] [address]- 3784 July, [facility] [place] [facility] [address] [id number] [place] [address]- 3759 Jun, [facility] [address] [id number] [place] [address]- 8501 Jun, [facility] [place] [facility] [address] [id number] [place] [address]- 4705 Jun, [facility] [place] [facility] [address] [id number] [place] [address]- 7848 Jun, [facility] [place] [facility] [address] [id number] [place] [address]- 7743 Jun, [facility] [place] [facility] [address] [id number] [place] [address]- 2574 Jun, [facility] [place] [facility] [address] [id number] [place] [address]- 1243 Jun, [facility] [place] [facility] [address] [id number] [place] [address]- 1999 Jun, [facility] [place] [facility] [address] [id number] [place] [address]- 1474 Jun, [facility] [place] [facility] [address] [id number] [place] [address]- 6554 Jun, [facility] [place] [facility] [address] [id number] [place] [address]- 6767 Jun, [facility] [place] [facility] [address] [id number] [place] [address]- 0356 19 May, 2011 [facility] [place] [facility] [address] [id number] [place] [address]- 1326 16 May, 2011 [facility] [place] [facility] [address] [id number] [place] [address]- 5636 14 May, 2011 [facility] [place] [facility] [address] [id number] [place] [address]- 4219 06 May, 2011 [facility] [place] [facility] [address] [id number] [place] [address]- 7418 28 Apr, 2011 [facility] [place] [facility] [address] [id number] [place] [address]- 6819 Apr, [facility] [place] [facility] [address] [id number] [place] [address]- 6621 Apr, [facility] [place] [facility] [address] [id number] [place] [address]- 4306 Apr, [facility] [place] [facility] [address] [id number] [place] [address]- 7056 Apr, [facility] [place] [facility] [address] [id number] [place] [address]- 8993 Apr, [facility] [place] [facility] [address] [id number] [place] [address]- 9190 Apr, [facility] [place] [facility] [address] [id number] [place] [address]- 2781 Apr, [facility] [place] [facility] [address] [id number] [place] [address]- 2505 Mar, [facility] [place] [facility] [address] [id number] [place] [address]- 4658 Mar, [facility] [place] [facility] [address] [id number] [place] [address]- 3599 19 Mar, 2011 [facility] [address] [id number] [place] [address]- 4931 18 Mar, 2011 [facility] [place] [facility] [address] [id number] [place] [address]- 2143 17 Mar, 2011 [facility] [address] [id number] [place] [address]- 3102 Mar, [facility] [place] [facility] [address] [id number] [place] [address]- 4398 Mar, [facility] [address] [id number] [place] [address]- 2474 Mar, [facility] [address] [id number] [place] [address]- 9230 Mar, [facility] [address] [id number] [place] [address]- 5331 Mar, [facility] [address] [id number] [place] [address]- 0042 Mar, [facility] [address] [id number] [place] [address]- 8332 Mar, [facility] [address] [id number] [place] [address]- 1331 Mar, [facility] [address] [id number] [place] [address]- 7258 Mar, [facility] [place] [facility] [address] [id number] [place] [address]- 1447 Mar, [facility] [place] [facility] [address] [id number] [place] [address]- 2422 Mar, [facility] [place] [facility] [address] [id number] [place] [address]- 6821 Feb, [facility] [address] [id number] [place] [address]- 4127 Feb, [facility] [address] [facility] [id number] [address] Feb, [facility] [address] [facility] [id number] [address]131 Jan, [facility] [address] [facility] [id number], [place] [address] 2486 Jan, [facility] [address] [facility] [id number] [place] [address] 2700 Jan, [facility] [address] [facility] [id number] 6516 Dec, [facility] [address] [facility] [id number] [address]397 Dec, [facility] [id number] [address] 2560 Nov, [facility] [id number] [address] 7948 Oct, [facility] [address] [id number], [place] [address] 8985 Oct, [facility] [id number] [address] 5816 Oct, [facility] [address] [id number], [place] [address] Sep, [facility] [id number], [place] [address]- 8101 Apr, [facility] [address] [id number], [place] [address]- [address]508 Feb, [facility] [address] [id number], [place] [address]- 8548 Jan, IMMUNIZATIONS Vaccine Route Administration Date Status PHENERGAN 50MG/ML IM Intramuscular Mar 11, 2017 Administered TORADOL (IM) 60 MG/2ML (UP TO 15 MG) IM Intramuscular Mar 11, 2017 Administered SOCIAL HISTORY Never Assessed REASON FOR VISIT COPD, PT comes in today with complaintes of a migrain since yesterday-Benjamin FERREIRA PLAN OF CARE Activity Details Follow Up 3 Months Reason:DM VITAL SIGNS Height 70 in 2017-03-11 Weight 271.4 lbs 2017-03-11 Temperature 98.7 degrees Fahrenheit 2017-03-11 Heart Rate 111 bpm 2017-03-11 Respiratory Rate 22 2017-03-11 Oximetry on room air:94 % 2017-03-11 BMI 38.94 kg/m2 2017-03-11 Blood pressure systolic 158 mmHg 2017-03-11 Blood pressure diastolic 94 mmHg 2017-03-11 MEDICATIONS Medication Instructions Dosage Frequency Start Date End Date Duration Status Ipratropium-Albuterol 0.5-2.5 (3) MG/3ML Inhalation Four times a day 3 ml as needed for Shortness of breath 6h Active Abilify 15 mg Orally Once a day 1 tablet 24h Jun, 90 days Active Cymbalta 60 mg Orally Once a day 2 capsule 24h Feb, Active Melatonin 5 MG Orally Once a day 1 capsule at bedtime as needed with food 24h Feb, 30 day(s) Active Neurontin 300 MG Orally Three times a day-repository 1 capsule Dec, Active Ventolin HFA 90 mcg/actuation Inhalation every 4 hrs 2 puffs as needed 4h Dec, Active Oxygen 2Lt by inhalation route 24 hours Active Trulicity 0.75 MG/0.5ML Subcutaneous once weekly 0.5 ml Jun, 90 days Active Zyrtec Allergy 10 MG Orally Once a day 1 tablet 24h Not-Taking Multivitamin Adult - Not-Taking Topamax 100 mg Orally Twice a day 1 tablet 12h 30 Active Ambien CR 6.25 MG Orally Once a day 1 tablet at bedtime as needed 24h Feb, 15 days Active Spiriva HandiHaler 18 MCG Inhalation Once a day 1 capsule 24h Active Advair Diskus 250 mcg-50 mcg Inhalation Twice a day 1 puff 12h Dec, Active RESULTS No Results PROCEDURES Procedure Date Ordered Result Body Site MEASURE BLOOD OXYGEN LEVEL Mar 11, 2017 BASIC METABOLIC PANEL Mar 11, 2017 VENIPUNCT, ROUTINE* Mar 11, 2017 PHENERGAN 50MG/ML Mar 11, 2017 GLYCATED HEMOGLOBIN TEST Mar 11, 2017 THER/PROPH/DIAG INJ, SC/IM Mar 11, 2017 TORADOL (IM) 60 MG/2ML (UP TO 15 MG) Mar 11, 2017 INSTRUCTIONS MEDICATIONS ADMINISTERED No Known Medications MEDICAL (GENERAL) HISTORY Type Description Date Medical History COPD Medical History asthma Medical History heart cath Medical History Social phobia Medical History MRSA in right lung Medical History diabetes Surgical History heart cath 03/2015 Hospitalization History for surgeries Hospitalization History A[facility] 2/2 Benzos OD, pneumonia MRSA, [facility], Hypokalemia-- [facility] 12/20/2015 Hospitalization History COPD exacerbation, Asthma-[facility] 09/21/16 Hospitalization History COPD-[facility] 12/30/2016 Hospitalization History [facility] [place] [facility]-last around 2006 or so. Hospitalization History for COPD x2 Mar 2017 Hospitalization History Upper GI bleed at apr 2017 Hospitalization History [facility]- COPD Exacerbation, diarrhea 05/23/2017 Hospitalization History COPD exacerbation-[facility] 06/13/17
--- OUTSIDE RECORDS SUMMARY | 2017-09-18 19:31 | XMS REPORT ---
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909 Active 26002950 Problem History of MRSA infection Z86.14 Active 243434418 Problem Knee pain, left M25.562 Active 50018286 Problem Obesity, unspecified obesity severity, unspecified obesity type E66.9 Active 189875489 Problem Acute bronchitis with COPD J44.0 Active [id number] Problem Other emphysema J43.8 Active 82415652 Problem Chronic bronchitis, unspecified chronic bronchitis type J42 Active 32512698 Problem Migraine without aura and without status migrainosus, not intractable G43.009 Active 808866930 Problem COPD exacerbation J44.1 Active 621667976 Problem Chronic obstructive pulmonary disease with acute exacerbation J44.1 Active 673388452 Problem Chronic constipation K59.09 Active 150348816 Problem Dry mouth R68.2 Active 03831133 Problem Encounter for tobacco use cessation counseling Z71.6 Active 915199593 Problem Diabetes E11.9 Active 675412588 Problem Methamphetamine use disorder, moderate, 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 Active 99423519 Problem Intractable cyclical vomiting with nausea G43.A1 Active 71273237 Problem Viral illness B34.9 Active 38361023 Problem Left knee pain M25.562 Active 65075179 Problem Bipolar disorder, unspecified F31.9 Active 27339099 Problem Yeast vaginitis B37.3 Active 45317481 Problem Memory loss R41.3 Active 62523195 Problem Bipolar disorder with depression F31.30 Active 96803383 Problem Non morbid obesity due to excess calories E66.09 Active 062370445 Problem Bipolar disorder, current episode depressed, severe, without psychotic features F31.4 Active 59993226 Problem Generalized anxiety disorder F41.1 Active 09993295 ALLERGIES Substance Reaction Event Type Date Status amitriptyline OD on medication, causes parasonias Non Drug Allergy Mar, Active Buspar 10 Mg Tablet made legs shaky Non Drug Allergy Mar, Active Benzodiazepines NARC ALERT Broke narc contract Non Drug Allergy Mar Active Narcotic NARC ALERT Broke Narc contract Non Drug Allergy Mar, Active ENCOUNTERS Encounter Location Date Diagnosis [place] [address] [address] Aug, Chronic obstructive pulmonary disease with acute exacerbation J44.1 [place] [address] [address]- [address]85 Aug, [facility] [address] [address]- [address] Aug, [facility] [address] [place] [id number] [place] [address] 84685- 5829 July, [facility] [address] [place] [id number] [place] [address] 99046- 1139 July, [facility] [address] [place] [id number] [place] [address] 70478- 0209 July, Diabetes E11.9 and Chronic obstructive pulmonary disease with acute exacerbation J44.1 [facility] [address] [address]- [address] Jun, Chronic obstructive pulmonary disease with acute exacerbation J44.1 ; Diabetes E11.9 and Tobacco abuse Z72.0 [facility] [address] [place] [address] Jun, [facility] [address] [place] [id number] [place] [address] 40780- 8927 Jun, [facility] [address] [place] [id number] [place] [address] 65133- 5911 May, [facility] [address] [place] [id number] [place] [address] 18021- 5821 May, [facility] [address] [place] [id number] [place] [address] 13785 -1462 17 May, 2017 [facility] [address] [place] [id number] [place] [address] 09115- 0919 16 May, 2017 [facility] [address] [place] [id number] [place] [address] 50531- 2199 15 May, 2017 [facility] [address] [place] [id number] [place] [address] 69124- 3154 14 May, 2017 Diarrhea, unspecified type R19.7 and Intractable cyclical vomiting with nausea G43.A1 [facility] [address] [place] [id number] [place] [address] 93679- 3392 12 May, 2017 [facility] [address] [place] [id number] [place] [address] 49916- 7704 05 May, 2017 [facility] [address] [place] [id number] [place] [address] 23170- 1056 28 Apr, 2017 COPD exacerbation J44.1 ; Esophageal candidiasis B37.81 ; Other acute gastritis with hemorrhage K29.01 and Acute posthemorrhagic anemia D62 [facility] [address] [place] [id number] [place] [address] 97682- 9892 Apr, Viral illness B34.9 and COPD exacerbation J44.1 [facility] [address] [place] [id number] [place] [address] 76007 -3204 Apr, Shortness of breath R06.02 and Pneumonia of both lower lobes due to infectious organism J18.9 [facility] [address] [address] Mar, COPD with acute exacerbation J44.1 [facility] [address] [place] [id number] [place] [address] 52432- 1988 Mar, Chronic obstructive pulmonary disease with acute exacerbation J44.1 and Diabetes E11.9 [facility] [address] [place] [id number] [place] [address] 21930- 4349 Mar, [facility] [address] [place] [id number] [place] [address] 16821- 1925 Mar, [facility] [address] [place] [id number] [place] [address] 29954 -6170 Mar, COPD exacerbation J44.1 [place] [address] [place] [id number] [place] [address] 32407- 6876 Mar, [place] [address] [place] [id number] [place] [address] 44439- 4958 Mar, Migraine G43.909 ; Hypokalemia E87.6 and Type 2 diabetes mellitus without complications E11.9 [place] [address] [place] [id number] [place] [address] 44233- 0078 Feb, [place] [address] [place] [id number] [place] [address] 38949- 5009 Feb, [place] [address] [place] [id number] [place] [address] 84367- 9149 Feb, Methamphetamine use disorder, moderate, 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 ; Major depressive disorder, recurrent, moderate F33.1 ; Anxiety disorder, unspecified F41.9 and Tobacco abuse Z72.0 [place] [address] [place] [id number] [place] [address] 81963- 2663 Jan, Major depressive disorder, recurrent, moderate F33.1 [place] [address] [place] [id number] [place] [address] 80295- 4700 Jan, [place] [address] [place] [address]- 0694 14 Jan, 2017 [facility] [address] [place] [id number] [place] [address] 47581- 4751 Jan, Major depressive disorder, recurrent, moderate F33.1 [facility] [address] [place] [id number] [place] [address] 99778- 2412 13 Jan, 2017 Major depressive disorder, recurrent, moderate F33.1 ; Anxiety disorder, unspecified F41.9 ; Methamphetamine use disorder, moderate, 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 and Tobacco abuse Z72.0 [facility] [address] [place] [id number] [place] [address] 78545- 3680 07 Jan, 2017 [place] [address] [place] [id number] [place] [address] 13639- 8619 06 Jan, 2017 Chronic obstructive pulmonary disease with acute exacerbation J44.1 and Diabetes E11.[address] [address]- 7[address] Jan, [facility] [address] [place] [id number] [place] [address] 14741- 1078 Jan, [facility] [address] [place] [id number] [place] [address] 30158- 2332 24 Dec, 2016 Acute respiratory failure with hypoxia J96.01 ; Chronic bronchitis, unspecified chronic bronchitis type J42 and Tobacco use Z72.0 [place] [address] [place] [id number] [place] [address] 47117- 9420 Dec, [facility] [address] [place] [id number] [place] [address] [id number] Nov, Dental caries K02.9 and Dental examination Z01.20 [facility] [address] [place] [id number] [place] [address] 62531- 5178 05 Nov, 2016 Major depressive disorder, recurrent, moderate F33.1 ; Anxiety disorder, unspecified F41.9 and 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 [facility] [address] [place] [id number] [place] [address] [id number] Oct, Dental examination Z01.20 [facility] [address] [place] [id number] [place] [address] 13155- 9569 Oct, [facility] [address] [place] [id number] [place] [address] 88384- 8324 Oct, Diabetes E11.9 and Thrush B37.0 [facility] [address] 66641- 0304 Oct, [facility] [address] [place] [id number] [place] [address] 18055- 1785 Oct, [facility] [address] [place] [id number] [place] [address] 57096- 2689 Oct, [facility] [address] [place] [id number] [place] [address] 15465- 6115 Sep, Major depressive disorder, recurrent, moderate F33.1 ; Anxiety disorder, unspecified F41.9 and Bipolar disorder, unspecified F31.9 [facility] [address] [place] [address] 55205- 0796 Sep, Acute exacerbation of chronic obstructive pulmonary disease (COPD) J44.1 and Migraine G43.909 [facility] [address] [address]- 2452 Sep, [facility] [address] [place] [id number] [place] [address] [id number] Sep, [facility] [id number] [place] [address] 55114- 6111 Sep, Acute exacerbation of chronic obstructive pulmonary disease (COPD) J44.1 [facility] [id number] [place] [address] 48494 -2051 Sep, Acute exacerbation of chronic obstructive pulmonary disease (COPD) J44.1 [facility] [address] [address]- 6467 Aug, [facility] [address] [place] [id number] [place] [address] 48237- 5164 20 Aug, 2016 Major depressive disorder, recurrent, moderate F33.1 ; Anxiety disorder, unspecified F41.9 and 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 [facility] [address] [place] [id number] [place] [address] 32624- 4546 19 Aug, 2016 Wheezing R06.2 ; Non morbid obesity due to excess calories E66.09 ; Migraine without aura and without status migrainosus, not intractable G43.009 and Tobacco abuse Z72.0 [facility] [address] [place] [id number] [place] [address] [id number] 14 Aug, 2016 Encounter for dental examination Z01.20 [facility] [address] [place] [id number] [place] [address] 18742- 4797 02 Aug, 2016 Major depressive disorder, recurrent, moderate F33.1 ; Anxiety disorder, unspecified F41.9 and 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 [place] [address] [place] [id number] [place] [address] 87098- 3714 July, [place] [address] [place] [id number] [place] [address] 52005- 2107 July, [facility] [address] [place] [id number] [place] [address] 23694- 8042 July, [place] [address] [place] [id number] [place] [address] 87550- 3409 July, Diabetes E11.9 [facility] [address] [place] [id number] [place] [address] 65834- 4847 Jun, Major depressive disorder, recurrent, moderate F33.1 [facility] [address] [place] [id number] [place] [address] 47118- 8143 Jun, Major depressive disorder, recurrent, moderate F33.1 ; 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 ; Generalized anxiety disorder F41.1 and Bipolar disorder, unspecified F31.9 [facility] [address] [place] [id number] [place] [address] 31646- 9335 Jun, Diabetes E11.9 ; Migraine G43.909 ; Thrush B37.0 and Wheezing R06.2 [facility] [address] [place] [id number] [place] [address] [id number] Jun, Dental examination Z01.20 [place] [address] 97472- 2428 Jun, [place] [address] 40692- 0999 Jun, Major depressive disorder, recurrent, moderate F33.1 ; Anxiety disorder, unspecified F41.9 and 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 [place] [address] 50102- 8978 Jun, [place] [address] 18950- 7995 Jun, Wheezing R06.2 [facility] [address] [id number] Jun, Dental caries K02.9 [place] [address] [place] [id number] [place] [address] 20401- 6743 Jun, Major depressive disorder, recurrent, moderate F33.1 ; Anxiety disorder, unspecified F41.9 and 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 [place] [address] [place] [id number] [place] [address] 77977- 6885 Jun, RLQ abdominal pain R10.31 ; Diabetes E11.9 ; Obesity, unspecified obesity severity, unspecified obesity type E66.9 ; Wheezing R06.2 and Abnormal urinalysis R82.90 [place] [address] [place] [id number] [place] [address] 27652- 5443 May, [place] [address] 77068- 4328 08 Mar, 2017 Well woman exam Z01.419 ; Breast cancer screening Z12.39 ; Cervical cancer screening Z12.4 ; Urinary frequency R35.0 ; Edema, unspecified type R60.9 and Chronic constipation K59.09 [facility] [address] [place] [address] 12065- 4993 08 May, 2016 Major depressive disorder, recurrent, moderate F33.1 ; Anxiety disorder, unspecified F41.9 and 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 [facility] [address] [place] [id number] [place] [address] [id number] 07 May, 2016 Dental examination Z01.20 [facility] [address] [place] [id number] [place] [address] 73589- 5721 May, [facility] [address] [place] [id number] [place] [address] 99563- 9715 May, [facility] [address] [place] [id number] [place] [address] 61142- 4460 May, Chronic constipation K59.09 [facility] [address] [place] [id number] [place] [address] 71420- 4466 Apr, [facility] [address] [place] [id number] [place] [address] 14788- 1622 Apr, Major depressive disorder, recurrent, moderate F33.1 ; Anxiety disorder, unspecified F41.9 and 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 [facility] [address] [place] [address] 12443- 6839 Apr, [facility] [address] [place] [address] 87628- 9771 Mar, Major depressive disorder, recurrent, moderate F33.1 [facility] [address] [place] [address] 18601- 6808 Mar, Major depressive disorder, recurrent, moderate F33.1 ; Generalized anxiety disorder F41.1 and Bipolar I disorder, most recent episode depressed with anxious distress F31.30 [place] [address] [place] [address] 67289- 2574 17 Mar, 2016 Diabetes E11.9 ; Non morbid obesity due to excess calories E66.09 ; Breast cancer screening Z12.39 and Encounter for immunization Z23 [place] [address] [place] [id number] [place] [address] 02253- 7514 17 Mar, 2016 Major depressive disorder, recurrent, moderate F33.1 ; Anxiety disorder, unspecified F41.9 and 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 [place] [address] [place] [address] 28087- 2131 Mar, [place] [address] [place] [id number] [place] [address] 21570- 6192 Feb, Major depressive disorder, recurrent, moderate F33.1 ; Anxiety disorder, unspecified F41.9 and 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 [place] [address] [place] [id number] [place] [address] 34544- 0178 Feb, [place] [address] [place] [id number] [place] [address] 38238- 4838 Feb, [place] [address] [place] [id number] [place] [address] 16949- 2418 Jan, Major depressive disorder, recurrent, moderate F33.1 ; Generalized anxiety disorder F41.1 and Bipolar disorder, current episode depressed, severe, without psychotic features F31.4 [place] [address] [place] [id number] [place] [address] 11032- 8596 Jan, Major depressive disorder, recurrent, moderate F33.1 ; Anxiety disorder, unspecified F41.9 and 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 [place] [address] [place] [id number] [place] [address] 45304- 0567 16 Jan, 2016 Bronchitis J40 [place] [address] [place] [address] 72376- 5060 Jan, [place] [address] [address]- 6950 Jan, [facility] [address] [facility] [id number] [address]- 0915 Jan, Elbow injury, right, initial encounter S59.901A ; Multiple contusions T14.8 and Cervical strain, acute, initial encounter S16.1XXA [facility] [address] [place] [address] 15075- 4136 Dec, Major depressive disorder, recurrent, moderate F33.1 ; Generalized anxiety disorder F41.1 and Bipolar disorder with depression F31.30 [facility] [address] [facility] [id number] [place] [address] 80750- 3268 Dec, [facility] [address] [facility] [id number] [place] [address] 24694- 8728 Dec, [facility] [address] [place] [address] 52458- 2712 Dec, [facility] [address] [facility] [id number] [address]- 3425 Dec, [facility] [address] [place] [id number] [address]- 4284 Dec, Yeast infection B37.9 [facility] [address] [place] [id number] [address]- 8081 Dec, Pneumonia of both lungs due to methicillin resistant Staphylococcus aureus (MRSA), unspecified part of lung J15.212 and Benzodiazepine overdose, accidental or unintentional, subsequent encounter T42.4X1D [facility] [address] [facility] [id number], [place] [address]- 6857 Dec, [facility] [address] [facility] [id number], [place] [address]- 5799 Dec, [facility] [address] [place] [id number] [address]- 5614 Dec, Knee pain, left M25.562 and Edema, unspecified type R60.9 [place] [address] [place] [id number] [place] [address] 26285- 1146 Dec, [place] [address] [place] [id number] [place] [address]- 3926 Dec, Anxiety disorder, unspecified F41.9 and Bipolar disorder, unspecified F31.9 [place] [address] 04884- 4471 Nov, Major depressive disorder, recurrent, moderate F33.1 ; Anxiety disorder, unspecified F41.9 and 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 [place] [address] [place] [id number] [place] [address] 83076- 3287 Nov, [place] [address] [place] [id number] [place] [address] 89068- 3859 Nov, Migraine without aura and without status migrainosus, not intractable G43.009 [place] [address] [place] [id number] [place] [address] 74087- 5781 Nov, Migraine G43.909 [place] [address] [place] [id number] [place] [address] 21902- 4769 Nov, [place] [address] [place] [id number] [place] [address] 13386- 2074 Nov, Major depressive disorder, recurrent, moderate F33.1 ; Anxiety disorder, unspecified F41.9 and 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 [place] [address] [place] [id number] [place] [address] 16057- 5997 Oct, Chronic constipation K59.09 and Obesity, unspecified obesity severity, unspecified obesity type E66.9 [place] [address] [place] [id number] [place] [address] 73118- 2386 Oct, Obesity, unspecified obesity severity, unspecified obesity type E66.9 ; Chronic constipation K59.09 and Anxiety disorder, unspecified F41.9 [place] [address] [place] [address]- 4653 Oct, [facility] [address] [place] [address] 22004- 6215 Sep, Diabetes E11.9 ; Edema, unspecified type R60.9 ; Varicose vein of leg I83.90 and Obesity, unspecified obesity severity, unspecified obesity type E66.9 [facility] [address] [place] [id number] [place] [address] 65201- 8331 Sep, Edema, unspecified type R60.9 ; Diabetes E11.9 and Knee pain , left M25.562 [place] [address] [address] [id number] [place] [address] 13236- 7317 Sep, [place] [address] [address] [id number] [place] [address] 04609- 2123 Sep, [place] [address] [address] [id number] [place] [address] 36038- 1279 Sep, Major depressive disorder, recurrent, moderate F33.1 ; Generalized anxiety disorder F41.1 and Bipolar disorder, unspecified F31.9 [place] [address] [place] [address] 46271- 6616 Aug, Chondromalacia of left knee M94.262 [place] [address] [place] [address] 97031- 3664 Aug, Major depressive disorder, recurrent, moderate F33.1 ; Anxiety disorder, unspecified F41.9 and 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 [place] [address] [address]- 8745 Aug, [place] [address] [id number] [place] [address] 04978- 1939 Aug, Osteoarthritis of left knee M17.9 [facility] [address] [place] [address] 74464- 4135 Aug, [place] [address] [place] [id number] [place] [address]- 9878 July, Major depressive disorder, recurrent, moderate F33.1 ; Anxiety disorder, unspecified F41.9 and 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 [facility] [id number] [place] [address] 57619- 8981 July, [place] [address] 47398- 1256 July, Chronic constipation K59.09 [facility] [address] 49505- 7261 Jun, [place] [address] 16836- 6637 15 Jun, 2015 [place] [id number] [place] [address] 10270- 6503 14 Jun, 2015 Osteoarthritis of left knee M17.9 [place] [id number] [place] [address] 12539- 2316 Jun, [place] [address] [place] [id number] [place] [address] 67383- 9512 Jun, Generalized anxiety disorder F41.1 ; Bipolar disorder, unspecified F31.9 and Major depressive disorder, recurrent, moderate F33.1 [place] [id number] [place] [address] 65929- 8913 Jun, Migraine G43.909 [place] [address] 73706- 9395 Jun, Left knee pain M25.562 ; Chronic constipation K59.09 ; Dry mouth R68.2 ; Yeast vaginitis B37.3 and Memory loss R41.3 [facility] [id number] [place] [address] 28511- 7035 05 Jun, 2015 [facility] [id number] [place] [address] 92370- 0044 May, [place] [id number] [place] [address] 71695- 1301 May, [facility] [id number] [place] [address] 72540- 1860 May, [facility] [id number] [place] [address] 96864- 2331 May, [facility] [id number] [place] [address] 66627- 8029 May, Acute bronchitis with COPD J44.0 ; Knee pain, left M25.562 and Encounter for tobacco use cessation counseling Z71.6 [place] [id number] [place] [address] 11005- 7246 May, [facility] [id number] [place] [address] 32382- 1386 Apr, Diabetes E11.9 ; TMJ (sprain of temporomandibular joint) S03.4XXA ; Tobacco abuse Z72.0 ; Migraine G43.909 and Anxiety F41.9 [facility] [id number] [place] [address] 40574- 5110 Apr, Generalized anxiety disorder F41.1 and Bipolar disorder, unspecified F31.9 [place] [id number] [place] [address] 16269- 5743 Apr, Major depressive disorder, recurrent, moderate F33.1 ; Anxiety disorder, unspecified F41.9 and 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 [facility] [id number] [place] [address] 07209- 2539 Apr, [facility] [id number] [place] [address] 60314- 5982 Mar, [facility] [id number] [place] [address] 65726- 1716 Feb, [facility] [id number] [place] [address] 17925- 1657 Feb, Major depressive disorder, recurrent, moderate F33.1 ; Anxiety disorder, unspecified F41.9 and 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 [place] [id number] [place] [address] 80992- 1493 Feb, [place] [id number] [place] [address] 67667- 8209 Feb, Generalized anxiety disorder F41.1 and Bipolar disorder, unspecified F31.9 [place] [id number] [place] [address] 60074- 3133 Jan, [place] [address] 67176- 4476 Jan, [place] [id number] [place] [address] 29963- 8979 Jan, Bipolar disorder, unspecified F31.9 and Generalized anxiety disorder F41.1 [place] [id number] [place] [address] 71088- 8970 Dec, [place] [address] 92120- 4588 Dec, Bipolar disorder, unspecified F31.9 and Generalized anxiety disorder F41.1 [place] [id number] [place] [address] 29345- 6137 Dec, Generalized anxiety disorder F41.1 and Major depressive disorder, recurrent, moderate F33.1 [place] [id number] [place] [address] 17405- 9180 Oct, Headache 784.0 ; Cough 786.2 ; Vomiting and diarrhea 787.03 and Dysuria 788.1 [place] [id number] [place] [address] 08133- 0367 Aug, [place] [id number] [place] [address] 11225- 9199 Aug, Headache 784.0 and Shortness of breath 786.05 [facility] [place] [facility] [address] [facility] [id number] [place] [address]- 4169 Aug, [facility] [place] [facility] [address] [facility] [id number] [place] [address]- 2523 Aug, Migraine 346.90 [facility] [place] [facility] [address] [place] [address]- 1306 Jun, [facility] [place] [facility] [address] [facility] [id number] [place] [address]- 7953 Jun, [facility] [place] [facility] [address] [facility] [id number] [place] [address]- 9950 May, [facility] [place] [facility] [address] [id number] [address]- 1598 May, [facility] [place] [facility] [id number] [place] [address]- 3144 May, [facility] [place] [facility] [address] [id number] [place] [address]- 2804 May, [facility] [place] [facility] [address] [id number] [place] [address]- 3078 May, [facility] [place] [facility] [address] [id number] [place] [address]- 2094 May, [facility] [place] [facility] [address] [address]- 2774 Apr, [facility] [place] [facility] [address] [facility] [id number] [address]- 4537 Apr, [facility] [place] [facility] [id number] [place] [address]- 2718 Apr, [facility] [place] [facility] [address] [facility] [id number], [place] [address]- 1731 Apr, [facility] [place] [facility] [id number] [place] [address]- 7562 Apr, [facility] [place] [facility] [address] [id number] [place] [address]- 7942 Mar, [facility] [place] [facility] [address] [id number] [place] [address]- 4694 Mar, [facility] [place] [facility] [address] [id number] [place] [address]- 8071 Mar, [facility] [place] [facility] [address] [id number] [place] [address]- 7090 Mar, [facility] [place] [facility] [address] [id number] [place] [address]- 3872 Feb, [facility] [place] [facility] [address] [id number] [place] [address]- 8338 Feb, [facility] [place] [facility] [address] [id number] [place] [address]- 2857 Feb, [facility] [place] [facility] [address] [id number] [place] [address]- 3290 Feb, [facility] [place] [facility] [address] [id number] [place] [address]- 8307 16 Feb, 2014 [facility] [place] [facility] [address] [id number] [place] [address]- 5828 Feb, [facility] [place] [facility] [address] [id number] [place] [address]- 5673 Feb, [facility] [place] [facility] [address] [id number] [place] [address]- 7771 Feb, [facility] [place] [facility] [address] [id number] [place] 5974 Feb, [facility] [place] [facility] [address] [id number] [place] [address]- 5314 Feb, [facility] [place] [facility] [address] [id number] [place] [address]- 7846 Feb, [facility] [place] [facility] [address] [id number] [place] [address]- 9410 Feb, [facility] [place] [facility] [address] [id number] [place] [address]- 6429 Jan, [facility] [place] [facility] [address] [id number] [place] [address]- 2800 Jan, [facility] [place] [facility] [address] [id number] [place] [address]- 8106 Dec, [facility] [place] [facility] [address] [id number] [place] [address]- 2428 Dec, [facility] [place] [facility] [address] [id number] [place] [address]- 5510 Dec, [facility] [place] [facility] [address] [id number] [place] [address]- 8316 Dec, [facility] [place] [facility] [address] [id number] [place] [address]- 4286 Dec, [facility] [place] [facility] [address] [id number] [place] [address]- 7537 Dec, [facility] [place] [facility] [address] [id number] [place] [address]- 9855 Sep, [facility] [place] [facility] [address] [id number] [place] [address]- 7016 Sep, [facility] [place] [facility] [address] [id number] [place] [address]- 3546 Sep, [facility] [place] [facility] [address] [id number] [place] [address]- 2962 Sep, [facility] [place] [facility] [address] [id number] [place] [address]- 0226 Sep, [facility] [place] [facility] [address] [id number] [place] [address]- 6822 Sep, [facility] [place] [facility] [address] [id number] [place] [address]- 1423 Sep, [facility] [place] [facility] [address] [id number] [place] [address]- 8892 07 Sep, 2013 [facility] [place] [facility] [address] [id number] [place] [address]- 5243 06 Sep, 2013 [facility] [place] [facility] [address] [id number] [place] [address]- 0913 Sep, [facility] [place] [facility] [address] [id number] [place] [address]- 0226 24 Aug, 2013 [facility] [place] [facility] [address] [id number] [place] [address]- 3169 Aug, [facility] [place] [facility] [address] [id number] [place] [address]- 2208 Aug, [facility] [place] [facility] [address] [id number] [place] [address]- 9752 Aug, [facility] [place] [facility] [address] [id number] [place] [address]- 2479 Aug, [facility] [place] [facility] [address] [id number] [place] [address]- 5137 Aug, [facility] [place] [facility] [address] [id number] [place] [address]- 5285 Aug, [facility] [place] [facility] [address] [id number] [place] [address]- 4610 Aug, [facility] [place] [facility] [address] [id number] [place] [address]- 3500 Aug, [facility] [place] [facility] [address] [id number] [place] [address]- 1482 Aug, [facility] [place] [facility] [address] [id number] [place] [address]- 3273 Aug, [facility] [place] [facility] [address] [id number] [place] [address]- 6806 Aug, [facility] [place] [facility] [address] [id number] [place] [address]- 5963 Aug, [facility] [place] [facility] [address] [id number] [place] [address]- 5692 July, [facility] [place] [facility] [address] [id number] [place] [address]- 9805 July, [facility] [place] [facility] [address] [id number] [place] [address]- 5570 July, [facility] [place] [facility] [address] [id number] [place] [address]- 3050 July, [facility] [place] [facility] [address] [id number] [place] [address]- 9754 July, [facility] [place] [facility] [address] [id number] [place] [address]- 7351 July, [facility] [place] [facility] [address] [id number] [place] [address]- 5221 July, [facility] [place] [facility] [address] [id number] [place] [address]- 1474 Jun, [facility] [place] [facility] [address] [id number] [place] [address]- 7941 Jun, [facility] [place] [facility] [address] [id number] [place] [address]- 4732 Jun, [facility] [place] [facility] [address] [id number] [place] [address]- 2199 Jun, [facility] [place] [facility] [address] [id number] [place] [address]- 4693 Jun, [facility] [place] [facility] [address] [id number] [place] [address]- 3020 Jun, [facility] [place] [facility] [address] [id number] [place] [address]- 2173 Jun, [facility] [place] [facility] [address] [id number] [place] [address]- 8433 May, [facility] [place] [facility] [address] [id number] [place] [address]- 6632 17 May, 2013 [facility] [place] [facility] [address] [id number] [place] [address]- 3487 14 May, 2013 [facility] [place] [facility] [address] [id number] [place] [address]- 0673 14 May, 2013 [facility] [place] [facility] [address] [facility] [id number] [place] [address]- 2661 13 May, 2013 [facility] [place] [facility] [address] [id number] [place] [address]- 5349 13 May, 2013 [facility] [place] [facility] [address] [id number] [place] [address]- 8319 10 May, 2013 [facility] [place] [facility] [address] [facility] [id number] [place] [address]- 1120 10 May, 2013 [facility] [place] [facility] [address] [facility] [id number] [place] [address]- 1211 07 May, 2013 [facility] [place] [facility] [address] [id number] [place] [address]- 7529 26 Apr, 2013 [facility] [place] [facility] [address] [id number] [place] [address]- 5213 26 Apr, 2013 [facility] [place] [facility] [address] [facility] [id number] [place] [address]- 8917 18 Apr, 2013 [facility] [place] [facility] [address] [id number] [place] [address]- 8721 15 Apr, 2013 [facility] [place] [facility] [address] [id number] [place] [address]- 5654 15 Apr, 2013 [facility] [place] [facility] [address] [id number] [place] [address]- 4667 11 Apr, 2013 [facility] [place] [facility] [address] [id number] [place] [address]- 0414 05 Apr, 2013 [facility] [place] [facility] [address] [facility] [id number] [place] [address]- 7908 05 Apr, 2013 [facility] [place] [facility] [address] [id number] [place] [address]- 0623 Apr, [facility] [place] [facility] [address] [id number] [place] [address]- 1061 Apr, [facility] [place] [facility] [address] [id number] [place] [address]- 2875 Mar, [facility] [place] [facility] [address] [id number] [place] [address]- 2831 Mar, [facility] [place] [facility] [address] [id number] [place] [address]- 0293 Mar, [facility] [place] [facility] [address] [id number] [place] [address]- 8407 Mar, [facility] [place] [facility] [address] [id number] [place] [address]- 9076 Mar, [facility] [place] [facility] [address] [id number] [place] [address]- 0196 Mar, [facility] [place] [facility] [address] [id number] [place] [address]- 5933 Mar, [facility] [place] [facility] [address] [id number] [place] [address]- 6551 Mar, [facility] [place] [facility] [address] [id number] [place] [address]- 0816 Feb, [facility] [place] [facility] [address] [id number] [place] [address]- 0393 Feb, [facility] [place] [facility] [address] [id number] [place] [address]- 2126 Jan, [facility] [place] [facility] [address] [id number] [place] [address]- 7063 Jan, [facility] [place] [facility] [address] [id number] [place] [address]- 7119 15 Jan, 2013 [facility] [place] [facility] [address] [id number], [place] [address]- 1919 Jan, [facility] [place] [facility] [address] [id number] [place] [address]- 1093 Jan, [facility] [place] [facility] [address] [id number] [place] [address]- 9046 Jan, [facility] [place] [facility] [address] [id number] [place] [address]- 2042 Jan, [facility] [place] [facility] [address] [id number] [place] [address]- 7059 Jan, [facility] [place] [facility] [address] [id number] [place] [address]- 1212 Dec, [facility] [place] [facility] [address] [id number] [place] [address]- 9184 Dec, [facility] [place] [facility] [address] [id number] [place] [address]- 5766 Dec, [facility] [place] [facility] [address] [id number] [place] [address]- 6272 20 Nov, 2012 [facility] [place] [facility] [address] [id number] [place] [address]- 2562 13 Nov, 2012 [facility] [place] [facility] [address] [id number] [place] [address]- 1874 12 Nov, 2012 [facility] [place] [facility] [address] [id number], [place] [address]- 4314 Nov, [facility] [place] [facility] [address] [id number], [place] [address]- 8465 Nov, [facility] [place] [facility] [address] [id number] [place] [address]- 1857 Nov, [facility] [place] [facility] [address] [id number] [place] [address]- 2438 Oct, [facility] [place] [facility] [address] [id number] [place] [address]- 0717 Oct, [facility] [place] [facility] [address] [id number] [place] [address]- 6246 Sep, [facility] [address] [id number] [place] [address]- 2852 Sep, [facility] [address] [id number] [place] [address]- 6687 Sep, [facility] [address] [id number] [place] [address]- 0263 Sep, [facility] [address] [id number] [place] [address]- 1127 Sep, [facility] [address] [id number] [place] [address]- 4857 Sep, [facility] [address] [id number] [place] [address]- 8187 Sep, [facility] [address] [id number] [place] [address]- 4515 Aug, [facility] [address] [id number] [place] [address]- 6609 Aug, [facility] [address] [id number] [place] [address]- 9567 Aug, [facility] [address] [id number] [place] [address]- 9019 Aug, [facility] [address] [id number] [place] [address]- 5838 Aug, [facility] [address] [id number] [place] [address]- 7301 Aug, [facility] [place] [facility] [address] [id number] [place] [address]- 4552 July, [facility] [place] [facility] [address] [id number] [place] [address]- 0526 July, [facility] [address] [id number] [place] [address]- 9364 July, [facility] [address] [id number] [place] [address]- 9375 July, [facility] [place] [facility] [address] [id number] [place] [address]- 5012 July, [facility] [address] [id number] [place] [address]- 9772 July, [facility] [place] [facility] [address] [id number] [place] [address]- 6008 Jun, [facility] [address] [id number] [place] [address]- 4800 Jun, [facility] [address] [id number] [place] [address]- 3881 Jun, [facility] [address] [id number] [place] [address]- 7903 Jun, [facility] [address] [id number] [place] [address] Jun, [facility] [place] [facility] [address] [id number] [place] [address] Jun, [facility] [place] [facility] [address] [id number] [place] [address] Jun, [facility] [place] [facility] [address] [id number] [place] [address] May, [facility] [place] [facility] [address] [id number], [place] [address] May, [facility] [place] [facility] [address] [id number] [place] [address] Apr, [facility] [place] [facility] [address] [id number] [place] [address] Apr, [facility] [place] [facility] [address] [id number] [place] [address] Apr, [facility] [place] [facility] [address] [id number] [place] [address] 18 Apr, 2012 [facility] [address] [id number] [place] [address]46 12 Apr, 2012 [facility] [place] [facility] [address] [id number] [place] [address] 2546 08 Apr, 2012 [facility] [address] [id number] [place] [address] 2546 07 Apr, 2012 [facility] [place] [facility] [address] [id number] [place] [address] 2544 07 Apr, 2012 [facility] [place] [facility] [address] [id number] [place] [address] 2546 06 Apr, 2012 [facility] [place] [facility] [address] [id number] [place] [address] 2544 06 Apr, 2012 [facility] [place] [facility] [address] [id number] [place] [address] 03 Apr, 2012 [facility] [address] [id number] [place] [address] 30 Mar, 2012 [facility] [place] [facility] [address] [id number] [place] [address] Mar, [facility] [place] [facility] [address] [id number] [place] [address] 25[address] Mar, [facility] [place] [facility] [address] [id number] [place] [address] Mar, [facility] [place] [facility] [address] [id number] [place] [address] 254 Mar, [facility] [place] [facility] [address] [id number] [place] [address] 2546 Mar, [facility] [place] [facility] [address] [id number] [place] [address] 2546 15 Mar, 2012 [facility] [place] [facility] [address] [id number] [place] [address] 15 Mar, 2012 [facility] [address] [id number] [place] [address] Mar, [facility] [place] [facility] [address] [id number] [place] [address] Mar, [facility] [address] [id number] [place] [address] Mar, [facility] [place] [facility] [address] [id number] [place] [address] Mar, [facility] [address] [id number] [place] [address] Mar, [facility] [address] [id number] [place] [address] Feb, [facility] [address] [id number] [place] [address] Feb, [facility] [place] [facility] [address] [id number] [place] [address] 18 Feb, 2012 [facility] [place] [facility] [address] [id number] [place] [address] 18 Feb, 2012 [facility] [place] [facility] [address] [id number] [place] [address] Feb, [facility] [place] [facility] [address] [id number] [place] [address] 11 Feb, 2012 [facility] [place] [facility] [address] [id number], [place] [address] 10 Feb, 2012 [facility] [place] [facility] [address] [id number] [place] [address] 10 Feb, 2012 [facility] [place] [facility] [address] [id number] [place] [address] 10 Feb, 2012 [facility] [place] [facility] [address] [id number] [place] [address] 10 Feb, 2012 [facility] [place] [facility] [address] [id number] [place] [address] 06 Feb, 2012 [facility] [place] [facility] [address] [id number] [place] [address]- [address] Feb, [facility] [place] [facility] [address] [id number] [place] [address] Feb, [facility] [place] [facility] [address] [facility] [id number] [place] [address] Feb, [facility] [place] [facility] [address] [id number] [place] [address] Feb, [facility] [place] [facility] [address] [id number] [place] [address]- [address] Jan, [facility] [place] [facility] [address] [id number] [place] [address] Jan, [facility] [place] [facility] [address] [facility] [id number] [place] [address] Jan, [facility] [place] [facility] [address] [facility] [id number] [place] [address]- [address] Jan, [facility] [place] [facility] [address] [facility] [id number] [place] [address]- [address] Dec, [facility] [place] [facility] [address] [facility] [id number] [place] [address] Dec, [facility] [place] [facility] [address] [facility] [id number] [place] [address] Dec, [facility] [place] [facility] [address] [facility] [id number], [place] [address] Dec, [facility] [place] [facility] [address] [id number] [place] [address] Dec, [facility] [place] [facility] [address] [facility] [id number], [place] [address] Dec, [facility] [place] [facility] [address] [facility] [id number], [place] [address] Dec, [facility] [place] [facility] [address] [id number] [place] [address]- [address]674 16 Dec, 2011 [facility] [place] [facility] [address] [id number] [place] [address]- [address] 07 Dec, 2011 [facility] [place] [facility] [address] [id number] [place] [address]- [address] 04 Dec, 2011 [facility] [place] [facility] [address] [id number] [place] [address]- [address] 03 Dec, 2011 [facility] [place] [facility] [address] [id number] [place] [address]- [address] 25 Sep, 2011 [facility] [place] [facility] [address] [id number] [place] [address] 24 Sep, 2011 [facility] [place] [facility] [address] [id number] [place] [address] 20 Sep, 2011 [facility] [place] [facility] [address] [id number] [place] [address] 19 Sep, 2011 [facility] [place] [facility] [address] [id number] [place] [address] 17 Sep2011 [facility] [place] [facility] [address] [id number] [place] [address] 16 Sep2011 [facility] [place] [facility] [address] [id number] [place] [address]471 14 Sep, 2011 [facility] [place] [facility] [address] [id number] [place] [address] 6768 13 Sep, 2011 [facility] [place] [facility] [address] [id number] [place] [address] 12 Sep, 2011 [facility] [place] [facility] [address] [id number] [place] [address] 07 Sep, 2011 [facility] [place] [facility] [address] [id number] [place] [address] 06 Sep, 2011 [facility] [place] [facility] [address] [id number] [place] [address]491 Nov, [facility] [place] [facility] [address] [id number] [place] [address] 114[address] Nov, [facility] [place] [facility] [address] [id number] [place] [address] 98[address] Oct, [facility] [place] [facility] [address] [id number] [place] [address]26 Oct, [facility] [place] [facility] [address] [id number] [place] [address] 4683 Oct, [facility] [place] [facility] [address] [id number] [place] [address]308 Oct, [facility] [place] [facility] [address] [id number] [place] [address] 7611 Oct, [facility] [place] [facility] [address] [id number] [place] [address]- 2589 Oct, [facility] [place] [facility] [address] [id number] [place] [address] 2541 Oct, [facility] [place] [facility] [address] [id number] [place] [address]- 1707 Oct, [facility] [place] [facility] [address] [id number] [place] [address] 9995 Oct, [facility] [place] [facility] [address] [id number] [place] [address]- 2070 Oct, [facility] [place] [facility] [address] [id number] [place] [address] 1574 Oct, [facility] [place] [facility] [address] [id number] [place] [address] 2850 Sep, [facility] [place] [facility] [address] [id number] [place] [address]- 3553 Sep, [facility] [place] [facility] [address] [id number] [place] [address] 8636 Sep, [facility] [place] [facility] [address] [id number] [place] [address] 5748 Sep, [facility] [address] [id number] [place] [address] 8414 Sep, [facility] [address] [id number] [place] [address] Sep, [facility] [address] [id number] [place] [address] 5746 Aug, [facility] [address] [id number] [place] [address] 0672 July, [facility] [address] [id number] [place] [address] 3911 July, [facility] [address] [id number] [place] [address] 9028 Jun, [facility] [address] [id number] [place] [address] 9922 Jun, [facility] [address] [id number] [place] [address] 7280 Jun, [facility] [address] [id number] [place] [address] 2443 Jun, [facility] [address] [id number] [place] [address] 8400 Jun, [facility] [address] [id number] [place] [address] 9082 Jun, [facility] [address] [id number] [place] [address]- 8053 Jun, [facility] [place] [facility] [address] [id number] [place] [address]- 5038 Jun, [facility] [address] [id number] [place] [address] 4678 Jun, [facility] [address] [id number] [place] [address] Jun, [facility] [place] [facility] [address] [id number] [place] [address]- 1614 02 Jun, 2011 [facility] [place] [facility] [address] [id number] [place] [address]- 0676 19 May, 2011 [facility] [place] [facility] [address] [id number] [place] [address] 16 May, 2011 [facility] [place] [facility] [address] [id number] [place] [address]- 5994 14 May, 2011 [facility] [place] [facility] [address] [id number] [place] [address]- 2329 06 May, 2011 [facility] [place] [facility] [address] [id number] [place] [address]- 4140 28 Apr, 2011 [facility] [place] [facility] [address] [id number] [place] [address]- 0700 28 Apr, 2011 [facility] [place] [facility] [address] [id number] [place] [address]- 8519 Apr, [facility] [place] [facility] [address] [id number] [place] [address]- 8874 Apr, [facility] [place] [facility] [address] [id number] [place] [address]- 2791 Apr, [facility] [place] [facility] [address] [id number] [place] [address]- 0078 Apr, [facility] [place] [facility] [address] [id number] [place] [address] 1880 Apr, [facility] [place] [facility] [address] [id number] [place] [address]- 0537 Apr, [facility] [place] [facility] [address] [id number] [place] [address] Mar, [facility] [place] [facility] [address] [id number] [place] [address]- 0135 Mar, [facility] [place] [facility] [address] [id number] [place] [address] 1911 19 Mar, 2011 [facility] [address] [id number] [place] [address] 9869 18 Mar, 2011 [facility] [address] [id number] [place] [address]- 7544 17 Mar, 2011 [facility] [address] [id number] [place] [address] 0440 Mar, [facility] [address] [id number] [place] [address]- 6146 Mar, [facility] [address] [id number] [place] [address]- 0744 Mar, [facility] [address] [id number] [place] [address]- 4424 Mar, [facility] [address] [id number] [place] [address]- 6329 Mar, [facility] [address] [id number] [place] [address]- 5501 Mar, [facility] [address] [id number] [place] [address]- 9987 Mar, [facility] [address] [id number] [place] [address]- 4113 Mar, [facility] [address] [id number] [place] [address]- 7184 Mar, [facility] [address] [id number] [place] [address]- 7175 Mar, [facility] [address] [id number] [place] [address]- 9333 Mar, [facility] [address] [id number] [place] [address]- 0537 Feb, [facility] [address] [id number] [place] [address] 3650 Feb, [facility] [address] [facility] [id number] [address] Feb, [facility] [address] [facility] [id number] [address] Jan, [facility] [address] [facility] [id number] [address] Jan, [facility] [address] [facility] [id number][place] [address] Jan, [facility] [address] [facility] [id number][place] [address]83 Dec, [facility] [address] [facility] [id number][place] [address] Dec, [facility] [id number] [address] Nov, [facility] [id number], [place] [address]- 0465 Oct, [facility] [address] [id number], [place] [address]- [address]30 Oct, [facility] [id number], [place] [address] 7176 Oct, [facility] [id number] [address] Sep, [facility] [address] [id number] [address] Apr, [facility] [address] [id number] [address]41 Feb, [facility] [address] [id number] [address] Jan, IMMUNIZATIONS Vaccine Route Administration Date Status SOLUMEDROL (UP TO 125 MG) IM Intramuscular Mar 22, 2017 Administered SOCIAL HISTORY Never Assessed REASON FOR VISIT Shortness of breath-- ER visit yesterday could not afford medications. JStrasserRN PLAN OF CARE Activity Details Follow Up prn Reason: VITAL SIGNS Height 70 in 2017-03-22 Weight 265 lbs 2017-03-22 Temperature 98.8 degrees Fahrenheit 2017-03-22 Heart Rate 124 bpm 2017-03-22 Respiratory Rate 28 2017-03-22 Oximetry w/ oxygen @ 3L:94 % 2017-03-22 BMI 38.02 kg/m2 2017-03-22 Blood pressure systolic 154 mmHg 2017-03-22 Blood pressure diastolic 110 mmHg 2017-03-22 MEDICATIONS Medication Instructions Dosage Frequency Start Date End Date Duration Status Trulicity 0.75 MG/0.5ML Subcutaneous once weekly 0.5 ml Jun, 90 days Active Advair Diskus 250 mcg-50 mcg Inhalation Twice a day 1 puff 12h Dec, Active Multivitamin Adult - Not-Taking Topamax 100 mg Orally Twice a day 1 tablet 12h 30 Active Oxygen 2Lt by inhalation route 24 hours Active Neurontin 300 MG Orally Three times a day-repository 1 capsule Dec, Active Abilify 15 mg Orally Once a day 1 tablet 24h Jun, 90 days Active Spiriva HandiHaler 18 MCG Inhalation Once a day 1 capsule 24h Active Ventolin HFA 90 mcg/actuation Inhalation every 4 hrs 2 puffs as needed 4h Dec, Active Ipratropium-Albuterol 0.5-2.5 (3) MG/3ML Inhalation Four times a day 3 ml as needed for Shortness of breath 6h Active Cymbalta 60 mg Orally Once a day 2 capsule 24h Feb, Active Zyrtec Allergy 10 MG Orally Once a day 1 tablet 24h Not-Taking Ambien CR 6.25 MG Orally Once a day 1 tablet at bedtime as needed 24h Feb, 15 days Active Melatonin 5 MG Orally Once a day 1 capsule at bedtime as needed with food 24h Feb, 30 day(s) Active RESULTS No Results PROCEDURES Procedure Date Ordered Result Body Site NEB/MDI RX INITIAL 2017-03-22 N/A MEASURE BLOOD OXYGEN LEVEL Mar 22, 2017 SOLUMEDROL (UP TO 125 MG) Mar 22, 2017 NEB/MDI RX INITIAL Mar 22, 2017 THER/PROPH/DIAG INJ, SC/IM Mar 22, 2017 INSTRUCTIONS MEDICATIONS ADMINISTERED No Known Medications MEDICAL (GENERAL) HISTORY Type Description Date Medical History COPD Medical History asthma Medical History heart cath Medical History Social phobia Medical History MRSA in right lung Medical History diabetes Surgical History heart cath 03/2015 Hospitalization History for surgeries Hospitalization History AMS 2/2 Benzos OD, pneumonia MRSA, [facility], Hypokalemia-- [facility] 12/20/2015 Hospitalization History COPD exacerbation, Asthma-[facility] 09/21/16 Hospitalization History COPD-[facility] 12/30/2016 Hospitalization History OSH and [facility] for inpatient-last around 2006 or so. Hospitalization History for COPD x2 Mar 2017 Hospitalization History Upper GI bleed at apr 2017 Hospitalization History [facility]- COPD Exacerbation, diarrhea 05/23/2017 Hospitalization History COPD exacerbation-[facility] 06/13/17
--- OUTSIDE RECORDS SUMMARY | 2017-09-18 19:36 | XMS REPORT ---
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 Active Problem Thrush B37.0 Active 53816385 Problem TMJ (sprain of temporomandibular joint) S03.4XXA Active 47756125 Problem Tobacco abuse Z72.0 Active 25960756 Problem Non morbid obesity due to excess calories E66.09 Active 394069277 Problem Migraine G43.909 Active 85684674 Problem History of MRSA infection Z86.14 Active 328571425 Problem Knee pain, left M25.562 Active 78895293 Problem Obesity, unspecified obesity severity, unspecified obesity type E66.9 Active 173699110 Problem Migraine without aura and without status migrainosus, not intractable G43.009 Active 797834906 Problem Other emphysema J43.8 Active 18785741 Problem Chronic obstructive pulmonary disease with acute exacerbation J44.1 Active 570597891 Problem Intractable cyclical vomiting with nausea G43.A1 Active 38853872 Problem Chronic constipation K59.09 Active 034813453 Problem Acute bronchitis with COPD J44.0 Active 507526639715806 Problem Encounter for tobacco use cessation counseling Z71.6 Active 219652165 Problem Methamphetamine use disorder, moderate, 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 Active 15517267 Problem Chronic bronchitis, unspecified chronic bronchitis type J42 Active 68452000 Problem Viral illness B34.9 Active 95062015 Problem Diabetes E11.9 Active 647683924 Problem Memory loss R41.3 Active 06137089 Problem Left knee pain M25.562 Active 93915108 Problem Dry mouth R68.2 Active 93257877 Problem Yeast vaginitis B37.3 Active 36186860 Problem Generalized anxiety disorder F41.1 Active 92094660 Problem Bipolar disorder with depression F31.30 Active 75980434 Problem Bipolar disorder, unspecified F31.9 Active 27652965 Problem Bipolar disorder, current episode depressed, severe, without psychotic features F31.4 Active 56206056 ALLERGIES Substance Reaction Event Type Date Status Buspar 10 Mg Tablet made legs shaky Non Drug Allergy Jan, Active Benzodiazepines NARC ALERT Broke narc contract Non Drug Allergy Jan Active Narcotic NARC ALERT Broke Narc contract Non Drug Allergy Jan, Active ENCOUNTERS Encounter Location Date Diagnosis [facility] [address] [address] July, [facility] [address] [address] July, Diabetes E11.9 and Chronic obstructive pulmonary disease with acute exacerbation J44.1 [facility] [address] [address]- 9[address] Jun, Chronic obstructive pulmonary disease with acute exacerbation J44.1 ; Diabetes E11.9 and Tobacco abuse Z72.0 [facility] [id number] [place] [address] 26551- 2111 Jun, [facility] [id number] [place] [address] 49069- 0631 Jun, [facility] [id number] [place] [address] 24888- 5919 May, [facility] [address] [address]- [address] May, [facility] [id number] [place] [address] 09566 -4884 May, [facility] [address] [address]- 0939 May, [facility] [id number] [place] [address] 52245- 9815 15 May, 2017 [facility] [address] [address]- [address] 14 May, 2017 Diarrhea, unspecified type R19.7 and Intractable cyclical vomiting with nausea G43.A1 [facility] [address] 8[address]49- 0052 12 May, 2017 [facility] [address] 31253- 6069 05 May, 2017 [facility] [address] 01233- 5865 28 Apr, 2017 COPD exacerbation J44.1 ; Esophageal candidiasis B37.81 ; Other acute gastritis with hemorrhage K29.01 and Acute posthemorrhagic anemia D62 [facility] [address] 20199- 5549 Apr, Viral illness B34.9 and COPD exacerbation J44.1 [facility] [address] [address] 19 Apr, 2017 Shortness of breath R06.02 and Pneumonia of both lower lobes due to infectious organism J18.9 [facility] [id number] [place] [address] 86954 -3379 Mar, COPD with acute exacerbation J44.1 [facility] [id number] [place] [address] 75425- 1461 Mar, Chronic obstructive pulmonary disease with acute exacerbation J44.1 and Diabetes E11.9 [facility] [address] 69867- 2395 Mar, [facility] [id number] [place] [address] 81615- 8377 Mar, [facility] [address] 30573 -2933 Mar, COPD exacerbation J44.1 [facility] [id number] [place] [address] 71167- 0181 Mar, [facility] [id number] [place] [address] 99841- 9478 Mar, Migraine G43.909 ; Hypokalemia E87.6 and Type 2 diabetes mellitus without complications E11.9 [facility] [id number] [place] [address] 46497- 1500 Feb, [facility] [id number] [place] [address] 47343- 1999 Feb, [facility] [id number] [place] [address] 10729- 9578 Feb, Methamphetamine use disorder, moderate, 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 ; Major depressive disorder, recurrent, moderate F33.1 ; Anxiety disorder, unspecified F41.9 and Tobacco abuse Z72.0 [facility] [id number] [place] [address] 26677- 5740 30 Jan, 2017 Major depressive disorder, recurrent, moderate F33.1 [facility] [id number] [place] [address] 60294- 2011 16 Jan, 2017 [facility] [id number] [place] [address] 55010- 1701 14 Jan, 2017 [facility] [id number] [place] [address] 39715- 6107 Jan, Major depressive disorder, recurrent, moderate F33.1 [facility] [id number] [place] [address] 39749- 8121 Jan, Major depressive disorder, recurrent, moderate F33.1 ; Anxiety disorder, unspecified F41.9 ; Methamphetamine use disorder, moderate, 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 and Tobacco abuse Z72.0 [facility] [id number] [place] [address] 02112- 0589 07 Jan, 2017 [facility] [id number] [place] [address] 15789- 6240 Jan, Chronic obstructive pulmonary disease with acute exacerbation J44.1 and Diabetes E11.9 [facility] [id number] [place] [address] 46650- 8366 Jan, [facility] [id number] [place] [address] 12258- 3350 Jan, [facility] [id number] [place] [address] 11704- 4959 Dec, Acute respiratory failure with hypoxia J96.01 ; Chronic bronchitis, unspecified chronic bronchitis type J42 and Tobacco use Z72.0 [facility] [id number] [place] [address] 77649- 0246 Dec, [facility] [id number] [place] [address] [id number] Nov, Dental caries K02.9 and Dental examination Z01.20 [facility] [id number] [place] [address] 16914- 1292 Nov, Major depressive disorder, recurrent, moderate F33.1 ; Anxiety disorder, unspecified F41.9 and 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 [facility] [id number] [place] [address] [id number] Oct, Dental examination Z01.20 [facility] [id number] [place] [address] 24774- 5732 Oct, [facility] [id number] [place] [address] 90889- 8023 Oct, Diabetes E11.9 and Thrush B37.0 [facility] [id number] [place] [address] 41304- 6332 Oct, [facility] [id number] [place] [address] 94271- 5881 Oct, [facility] [id number] [place] [address] 88183- 0269 Oct, [facility] [address] [address] Sep, Major depressive disorder, recurrent, moderate F33.1 ; Anxiety disorder, unspecified F41.9 and Bipolar disorder, unspecified F31.9 [facility] [address] [address] Sep, Acute exacerbation of chronic obstructive pulmonary disease (COPD) J44.1 and Migraine G43.909 [facility] [id number] [place] [address] 65838- 5988 Sep, [facility] [id number] [place] [address] [id number] Sep, [facility] [id number] [place] [address] 69976- 7332 Sep, Acute exacerbation of chronic obstructive pulmonary disease (COPD) J44.1 [facility] [id number] [place] [address] 74155 -4463 Sep, Acute exacerbation of chronic obstructive pulmonary disease (COPD) J44.1 [facility] [id number] [place] [address] 55907- 4115 Aug, [facility] [id number] [place] [address] 40565- 9122 Aug, Major depressive disorder, recurrent, moderate F33.1 ; Anxiety disorder, unspecified F41.9 and 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 [facility] [address] [address]- 6567 Aug, Wheezing R06.2 ; Non morbid obesity due to excess calories E66.09 ; Migraine without aura and without status migrainosus, not intractable G43.009 and Tobacco abuse Z72.0 [facility] [address] [id number] 14 Aug, 2016 Encounter for dental examination Z01.20 [facility] [address] [address]- 0219 Aug, Major depressive disorder, recurrent, moderate F33.1 ; Anxiety disorder, unspecified F41.9 and 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 [facility] [id number] [place] [address] 23490- 4808 July, [facility] [id number] [place] [address] 21284- 7308 July, [facility] [id number] [place] [address] 72572- 1025 July, [facility] [id number] [place] [address] 13116- 9580 July, Diabetes E11.9 [facility] [id number] [place] [address] 33453- 0328 Jun, Major depressive disorder, recurrent, moderate F33.1 [facility] [id number] [place] [address] 39027- 9876 Jun, Major depressive disorder, recurrent, moderate F33.1 ; 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 ; Generalized anxiety disorder F41.1 and Bipolar disorder, unspecified F31.9 [facility] [id number] [place] [address] 14743- 3181 Jun, Diabetes E11.9 ; Migraine G43.909 ; Thrush B37.0 and Wheezing R06.2 [facility] [id number] [place] [address] [id number] Jun, Dental examination Z01.20 [facility] [id number] [place] [address] 56081- 6763 Jun, [facility] [id number] [place] [address] 65232- 8959 Jun, Major depressive disorder, recurrent, moderate F33.1 ; Anxiety disorder, unspecified F41.9 and 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 [facility] [id number] [place] [address] 53340- 2201 Jun, [facility] [id number] [place] [address] 37843- 8922 Jun, Wheezing R06.2 [facility] [id number] [place] [address] [id number] Jun, Dental caries K02.9 [facility] [id number] [place] [address] 12462- 8583 Jun, Major depressive disorder, recurrent, moderate F33.1 ; Anxiety disorder, unspecified F41.9 and 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 [facility] [id number] [place] [address] 28343- 3999 Jun, RLQ abdominal pain R10.31 ; Diabetes E11.9 ; Obesity, unspecified obesity severity, unspecified obesity type E66.9 ; Wheezing R06.2 and Abnormal urinalysis R82.90 [facility] [id number] [place] [address] 29111- 8805 May, [facility] [id number] [place] [address] 70790- 7577 May, Well woman exam Z01.419 ; Breast cancer screening Z12.39 ; Cervical cancer screening Z12.4 ; Urinary frequency R35.0 ; Edema, unspecified type R60.9 and Chronic constipation K59.09 [facility] [id number] [place] [address] 47459- 1227 May, Major depressive disorder, recurrent, moderate F33.1 ; Anxiety disorder, unspecified F41.9 and 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 [facility] [id number] [place] [address] [id number] May, Dental examination Z01.20 [facility] [id number] [place] [address] 51020- 1465 May, [facility] [id number] [place] [address] 94134- 1874 May, [facility] [id number] [place] [address] 22183- 5894 May, Chronic constipation K59.09 [facility] [id number] [place] [address] 49768- 7830 Apr, [facility] [id number] [place] [address] 83968- 9364 Apr, Major depressive disorder, recurrent, moderate F33.1 ; Anxiety disorder, unspecified F41.9 and 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 [facility] [id number] [place] [address] 23523- 7829 Apr, [facility] [id number] [place] [address] 73658- 9668 Mar, Major depressive disorder, recurrent, moderate F33.1 [facility] [id number] [place] [address] 59813- 1306 Mar, Major depressive disorder, recurrent, moderate F33.1 ; Generalized anxiety disorder F41.1 and Bipolar I disorder, most recent episode depressed with anxious distress F31.30 [facility] [id number] [place] [address] 05533- 9403 Mar, Diabetes E11.9 ; Non morbid obesity due to excess calories E66.09 ; Breast cancer screening Z12.39 and Encounter for immunization Z23 [facility] [id number] [place] [address] 18598- 2426 Mar, Major depressive disorder, recurrent, moderate F33.1 ; Anxiety disorder, unspecified F41.9 and 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 [facility] [id number] [place] [address] 98559- 1855 Mar, [facility] [address] 73517- 2374 Feb, Major depressive disorder, recurrent, moderate F33.1 ; Anxiety disorder, unspecified F41.9 and 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 [facility] [id number] [place] [address] 90272- 2326 Feb, [facility] [id number] [place] [address] 555406- 2802 Feb, [facility] [id number] [place] [address] 611499- 1359 Jan, Major depressive disorder, recurrent, moderate F33.1 ; Generalized anxiety disorder F41.1 and Bipolar disorder, current episode depressed, severe, without psychotic features F31.4 [facility] [id number] [place] [address] 22988- 4853 Jan, Major depressive disorder, recurrent, moderate F33.1 ; Anxiety disorder, unspecified F41.9 and 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 [facility] [id number] [place] [address] 82903- 0415 16 Jan, 2016 Bronchitis J40 [facility] [id number] [place] [address] 92551- 1225 Jan, [facility] [id number] [place] [address] 25293- 6778 Jan, [facility] [id number] [place] [address] 038449- 8516 Jan, Elbow injury, right, initial encounter S59.901A ; Multiple contusions T14.8 and Cervical strain, acute, initial encounter S16.1XXA [facility] [id number] [place] [address] 37310- 6341 Dec, Major depressive disorder, recurrent, moderate F33.1 ; Generalized anxiety disorder F41.1 and Bipolar disorder with depression F31.30 [facility] [address] 86664- 0631 Dec, [facility] [id number] [address]- 7903 Dec, [facility] [address], [place] [address]- 1126 Dec, [facility] [address], [place] [address]- 3158 Dec, [facility] [id number] [place] [address] 53316- 9229 Dec, Yeast infection B37.9 [facility] [id number] [place] [address] 24467- 9009 Dec, Pneumonia of both lungs due to methicillin resistant Staphylococcus aureus (MRSA), unspecified part of lung J15.212 and Benzodiazepine overdose, accidental or unintentional, subsequent encounter T42.4X1D [facility] [id number] [place] [address] 36186- 6206 Dec, [facility] [address], [place] [address]- 6898 Dec, [facility] [id number] [place] [address] 99667- 2721 Dec, Knee pain, left M25.562 and Edema, unspecified type R60.9 [facility] [address] [address]- 9313 Dec, [facility] [id number] [place] [address] 26682- 6699 Dec, Anxiety disorder, unspecified F41.9 and Bipolar disorder, unspecified F31.9 [facility] [id number] [place] [address] 71818- 2230 Nov, Major depressive disorder, recurrent, moderate F33.1 ; Anxiety disorder, unspecified F41.9 and 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 [facility] [id number] [place] [address] 62378- 4899 Nov, [facility] [id number] [place] [address] 84413- 9830 Nov, Migraine without aura and without status migrainosus, not intractable G43.009 [facility] [place] [id number] [place] [address] 24653- 0994 Nov, Migraine G43.909 [place] [facility] [address] 52692- 2169 Nov, [facility] [id number] [place] [address] 10361- 6164 Nov, Major depressive disorder, recurrent, moderate F33.1 ; Anxiety disorder, unspecified F41.9 and 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 [facility] [id number] [place] [address] 06626- 5591 Oct, Chronic constipation K59.09 and Obesity, unspecified obesity severity, unspecified obesity type E66.9 [facility] [id number] [place] [address] 95518- 9879 Oct, Obesity, unspecified obesity severity, unspecified obesity type E66.9 ; Chronic constipation K59.09 and Anxiety disorder, unspecified F41.9 [facility] [id number] [place] [address] 39733- 8152 Oct, [facility] [id number] [place] [address] 08092- 9038 Sep, Diabetes E11.9 ; Edema, unspecified type R60.9 ; Varicose vein of leg I83.90 and Obesity, unspecified obesity severity, unspecified obesity type E66.9 [facility] [id number] [place] [address] 58724- 1833 Sep, Edema, unspecified type R60.9 ; Diabetes E11.9 and Knee pain , left M25.562 [facility] [id number] [place] [address] 33603- 6731 Sep, [facility] [address], [place] [address]- 1038 Sep, [facility] [id number] [place] [address] 61719- 2604 Sep, Major depressive disorder, recurrent, moderate F33.1 ; Generalized anxiety disorder F41.1 and Bipolar disorder, unspecified F31.9 [facility] [id number] [place] [address] 36997- 9017 Aug, Chondromalacia of left knee M94.262 [facility] [id number] [place] [address] 69796- 1854 Aug, Major depressive disorder, recurrent, moderate F33.1 ; Anxiety disorder, unspecified F41.9 and 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 [facility] [id number] [place] [address] 41240- 7014 Aug, [facility] [id number] [place] [address] 19393- 2999 Aug, Osteoarthritis of left knee M17.9 [facility] [id number] [place] [address] 30034- 8876 Aug, [facility] [id number] [place] [address] 70628- 2871 July, Major depressive disorder, recurrent, moderate F33.1 ; Anxiety disorder, unspecified F41.9 and 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 [facility] [id number] [place] [address] 00796- 8576 July, [facility] [id number] [place] [address] 02385- 0538 July, Chronic constipation K59.09 [facility] [id number] [place] [address] 63061- 6871 Jun, [facility] [id number] [place] [address] 46696- 5164 15 Jun, 2015 [facility] [id number] [place] [address] 52001- 7266 14 Jun, 2015 Osteoarthritis of left knee M17.9 [facility] [id number] [place] [address] 05204- 4672 Jun, [facility] [id number] [place] [address] 53918- 7535 Jun, Generalized anxiety disorder F41.1 ; Bipolar disorder, unspecified F31.9 and Major depressive disorder, recurrent, moderate F33.1 [facility] [id number] [place] [address] 45986- 0997 Jun, Migraine G43.909 [facility] [id number] [place] [address] 83846- 0770 07 Jun, 2015 Left knee pain M25.562 ; Chronic constipation K59.09 ; Dry mouth R68.2 ; Yeast vaginitis B37.3 and Memory loss R41.3 [facility] [id number] [place] [address] 00495- 3765 Jun, [facility] [id number] [place] [address] 95714- 0057 30 May, 2015 [facility] [id number] [place] [address] 39672- 4968 May, [facility] [facility] [address] [id number] [place] [address] 72595- 4715 May, [place] [id number] [place] [address] 08561- 6246 May, [facility] [id number] [place] [address] 01910- 2034 17 May, 2015 Acute bronchitis with COPD J44.0 ; Knee pain, left M25.562 and Encounter for tobacco use cessation counseling Z71.6 [place] [id number] [place] [address] 31660- 7362 May, [facility] [id number] [place] [address] 91244- 7413 Apr, Diabetes E11.9 ; TMJ (sprain of temporomandibular joint) S03.4XXA ; Tobacco abuse Z72.0 ; Migraine G43.909 and Anxiety F41.9 [facility] [id number] [place] [address] 36826- 4584 Apr, Generalized anxiety disorder F41.1 and Bipolar disorder, unspecified F31.9 [place] [id number] [place] [address] 24056- 0608 Apr, Major depressive disorder, recurrent, moderate F33.1 ; Anxiety disorder, unspecified F41.9 and 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 [facility] [id number] [place] [address] 40086- 6299 Apr, [facility] [id number] [place] [address] 05979- 7230 Mar, [facility] [id number] [place] [address] 61736- 3771 Feb, [facility] [id number] [place] [address] 72785- 5337 14 Feb, 2015 Major depressive disorder, recurrent, moderate F33.1 ; Anxiety disorder, unspecified F41.9 and 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 [facility] [id number] [place] [address] 42687- 1405 Feb, [facility] [id number] [place] [address] 34162- 8213 Feb, Generalized anxiety disorder F41.1 and Bipolar disorder, unspecified F31.9 [facility] [id number] [place] [address] 82606- 1782 Jan, [facility] [id number] [place] [address] 45998- 2859 Jan, [facility] [id number] [place] [address] 80407- 7918 Jan, Bipolar disorder, unspecified F31.9 and Generalized anxiety disorder F41.1 [facility] [id number] [place] [address] 40661- 1756 Dec, [facility] [address] 36461- 1382 Dec, Bipolar disorder, unspecified F31.9 and Generalized anxiety disorder F41.1 [facility] [id number] [place] [address] 310878- 5502 Dec, Generalized anxiety disorder F41.1 and Major depressive disorder, recurrent, moderate F33.1 [facility] [id number] [place] [address] 25684- 7005 Oct, Headache 784.0 ; Cough 786.2 ; Vomiting and diarrhea 787.03 and Dysuria 788.1 [facility] [id number] [place] [address] 44942- 8880 Aug, [facility] [id number] [place] [address] 24161- 3210 Aug, Headache 784.0 and Shortness of breath 786.05 [facility] [id number] [place] [address] 58070- 0858 Aug, [facility] [id number] [place] [address] 63594- 8482 Aug, Migraine 346.90 [facility] [id number] [place] [address] 82911- 3936 Jun, [facility] [id number] [place] [address] 19476- 2800 Jun, [facility] [id number] [place] [address] 35115- 7763 May, [facility] [id number] [address]- 6665 May, [facility] [place] [facility] [address] [id number] [place] [address]- 9943 May, [facility] [place] [facility] [address] [id number] [place] [address]- 4146 May, [facility] [place] [facility] [address] [id number] [place] [address]- 4088 May, [facility] [place] [facility] [address] [id number] [place] [address]- 9519 May, [facility] [place] [facility] [address] [id number] [place] [address]- 9259 Apr, [facility] [place] [facility] [address] [id number] [place] [address]- 0391 Apr, [facility] [place] [facility] [address] [id number] [place] [address]- 2723 Apr, [facility] [place] [facility] [address] [id number] [place] [address]- 2904 Apr, [facility] [place] [facility] [address] [id number] [place] [address]- 7697 Apr, [facility] [place] [facility] [address] [id number] [place] [address]- 5042 Mar, [facility] [place] [facility] [address] [id number] [place] [address]- 4065 Mar, [facility] [place] [facility] [address] [id number] [place] [address]- 4190 Mar, [facility] [place] [facility] [address] [id number] [place] [address]- 9812 Mar, [facility] [place] [facility] [address] [id number] [place] [address]- 6319 Feb, [facility] [place] [facility] [address] [id number] [place] [address]- 9877 Feb, [facility] [place] [facility] [address] [id number] [place] [address]- 1355 18 Feb, 2014 [facility] [place] [facility] [address] [id number] [place] [address]- 9730 Feb, [facility] [place] [facility] [address] [facility] [id number] [place] 1181 Feb, [facility] [place] [facility] [address] [id number] [place] 4101 Feb, [facility] [place] [facility] [address] [id number] [place] [address]- 3424 Feb, [facility] [place] [facility] [address] [id number] [place] [address]- 8271 Feb, [facility] [place] [facility] [address] [id number] [place] [address]- 9124 Feb, [facility] [place] [facility] [address] [id number] [place] [address]- 6342 Feb, [facility] [place] [facility] [address] [id number] [place] [address]- 2881 Feb, [facility] [place] [facility] [address] [id number] [place] [address]- 6500 Feb, [facility] [place] [facility] [address] [id number] [place] [address]- 4341 Jan, [facility] [place] [facility] [address] [id number], [place] [address]- 2907 10 Jan, 2014 [facility] [place] [facility] [address] [id number] [place] [address]- 6239 Dec, [facility] [place] [facility] [address] [id number] [place] [address]- 8810 Dec, [facility] [place] [facility] [address] [id number] [place] 8593 Dec, [facility] [place] [facility] [address] [id number] [place] [address]- 9395 Dec, [facility] [place] [facility] [address] [id number] [place] [address]- 1224 Dec, [facility] [place] [facility] [address] [id number] [place] [address]- 6828 Dec, [facility] [place] [facility] [address] [id number] [place] [address]- 0259 Sep, [facility] [place] [facility] [address] [id number] [place] [address]- 3530 Sep, [facility] [place] [facility] [address] [id number] [place] [address]- 2656 Sep, [facility] [place] [facility] [address] [id number] [place] [address]- 7011 Sep, [facility] [place] [facility] [address] [id number] [place] [address]- 6442 Sep, [facility] [place] [facility] [address] [id number] [place] [address]- 1020 Sep, [facility] [place] [facility] [address] [id number] [place] [address]- 7577 Sep, [facility] [place] [facility] [address] [id number] [place] [address]- 1400 Sep, [facility] [place] [facility] [address] [id number] [place] [address]- 0727 Sep, [facility] [place] [facility] [address] [id number] [place] [address]- 8483 Sep, [facility] [place] [facility] [address] [id number] [place] [address]- 4227 Aug, [facility] [place] [facility] [address] [id number] [place] [address]- 4904 Aug, [facility] [place] [facility] [address] [id number] [place] [address]- 2862 Aug, [facility] [place] [facility] [address] [id number] [place] [address]- 4863 Aug, [facility] [place] [facility] [address] [id number] [place] [address]- 0673 Aug, [facility] [place] [facility] [address] [id number] [place] [address]- 2399 Aug, [facility] [place] [facility] [address] [id number] [place] [address]- 3587 Aug, [facility] [place] [facility] [address] [id number] [place] [address]- 8321 Aug, [facility] [place] [facility] [address] [id number] [place] [address]- 2289 Aug, [facility] [place] [facility] [address] [id number] [place] [address]- 1340 Aug, [facility] [place] [facility] [address] [id number] [place] [address]- 9758 Aug, [facility] [place] [facility] [address] [id number] [place] [address]- 4202 Aug, [facility] [place] [facility] [address] [id number] [place] [address]- 9839 Aug, [facility] [place] [facility] [address] [id number] [place] [address]- 8274 July, [facility] [place] [facility] [address] [id number] [place] [address]- 0279 July, [facility] [place] [facility] [address] [id number] [place] [address]- 4753 July, [facility] [place] [facility] [address] [id number] [place] [address]- 8203 July, [facility] [place] [facility] [address] [id number] [place] [address]- 8985 July, [facility] [place] [facility] [address] [id number] [place] [address]- 8006 July, [facility] [place] [facility] [address] [id number] [place] [address]- 7555 July, [facility] [place] [facility] [address] [id number] [place] [address]- 4026 Jun, [facility] [place] [facility] [address] [id number] [place] [address]- 0695 Jun, [facility] [place] [facility] [address] [id number] [place] [address]- 2058 Jun, [facility] [place] [facility] [address] [id number] [place] [address]- 3628 Jun, [facility] [place] [facility] [address] [id number] [place] [address]- 5323 Jun, [facility] [place] [facility] [address] [id number] [place] [address]- 0179 Jun, [facility] [place] [facility] [address] [id number] [place] [address]- 2528 Jun, [facility] [place] [facility] [address] [id number] [place] [address]- 2791 17 May, 2013 [facility] [place] [facility] [address] [id number] [place] [address]- 1147 17 May, 2013 [facility] [place] [facility] [address] [id number] [place] [address]- 6573 14 May, 2013 [facility] [place] [facility] [address] [id number] [place] [address]- 0272 14 May, 2013 [facility] [place] [facility] [address] [id number] [place] [address]- 9727 13 May, 2013 [facility] [place] [facility] [address] [id number] [place] [address]- 6476 13 May, 2013 [facility] [place] [facility] [address] [id number] [place] [address]- 2121 10 May, 2013 [facility] [place] [facility] [address] [id number] [place] [address]- 9463 May, [facility] [place] [facility] [address] [id number] [place] [address]- 8535 May, [facility] [place] [facility] [address] [id number] [place] [address]- 5522 Apr, [facility] [place] [facility] [address] [id number] [place] [address]- 4860 Apr, [facility] [place] [facility] [address] [id number] [place] [address]- 8309 Apr, [facility] [place] [facility] [address] [id number] [place] [address]- 8100 Apr, [facility] [place] [facility] [address] [facility] [id number] [place] [address]- 4789 Apr, [facility] [place] [facility] [address] [id number] [place] [address]- 0208 Apr, [facility] [place] [facility] [address] [id number] [place] [address]- 3980 Apr, [facility] [place] [facility] [address] [facility] [id number] [place] [address]- 4618 Apr, [facility] [place] [facility] [address] [facility] [id number] [place] [address]- 1147 Apr, [facility] [place] [facility] [address] [id number], [place] [address]- 1570 Apr, [facility] [place] [facility] [address] [id number] [place] [address]- 1737 Mar, [facility] [place] [facility] [address] [id number] [place] [address]- 5356 Mar, [facility] [place] [facility] [address] [facility] [id number], [place] [address]- 0504 Mar, [facility] [place] [facility] [address] [id number], [place] [address]- 9233 Mar, [facility] [address] [id number] [place] [address]- 1793 Mar, [facility] [place] [facility] [address] [facility] [id number], [place] [address]- 5495 Mar, [facility] [place] [facility] [address] [facility] [id number] [place] [address]- 6564 Mar, [facility] [place] [facility] [address] [id number], [place] [address]- 7715 Mar, [facility] [place] [facility] [address] [facility] [id number] [place] [address]- 5249 Feb, [facility] [place] [facility] [address] [facility] [id number] [place] [address]- 0446 Feb, [facility] [id number] [address]- 7058 Jan, [facility] [place] [facility] [address] [facility] [id number], [place] [address]- 3411 18 Jan, 2013 [facility] [place] [facility] [address] [id number] [address]- 5272 15 Jan, 2013 [facility] [place] [facility] [address] [id number] [address]- 9690 15 Jan, 2013 [facility] [place] [facility] [address] [facility] [id number], [place] [address]- 7047 Jan, [facility] [place] [facility] [address] [facility] [id number], [place] [address]- 1950 Jan, [facility] [place] [facility] [address] [facility] [id number], [place] [address]- 8728 05 Jan, 2013 [facility] [place] [facility] [address] [facility] [id number], [place] [address]- 2523 05 Jan, 2013 [facility] [place] [facility] [address] [facility] [id number], [place] [address]- 3713 13 Dec, 2012 [facility] [place] [facility] [address] [id number] [place] [address]- 5884 10 Dec, 2012 [facility] [place] [facility] [address] [id number] [place] [address]- 5000 10 Dec, 2012 [facility] [place] [facility] [address] [id number] [place] [address]- 2546 20 Nov, 2012 [facility] [place] [facility] [address] [id number] [place] [address] 2546 13 Nov, 2012 [facility] [place] [facility] [address] [id number] [place] [address] 254 12 Nov, 2012 [facility] [place] [facility] [address] [id number] [place] [address]- 4324 09 Nov, 2012 [facility] [place] [facility] [address] [id number] [place] [address]- 4746 06 Nov, 2012 [facility] [place] [facility] [address] [id number] [place] [address]- 9773 Nov, 2012 [facility] [place] [facility] [address] [id number] [place] [address]- 3945 Oct, [facility] [place] [facility] [address] [id number] [place] [address]- 6724 Oct, [facility] [place] [facility] [address] [id number] [place] [address]- 1084 Sep, [facility] [place] [facility] [address] [id number] [place] [address]- 7202 Sep, [facility] [place] [facility] [address] [id number] [place] [address]- 2541 Sep, [facility] [place] [facility] [address] [id number] [place] [address]- 8153 Sep, [facility] [place] [facility] [address] [id number] [place] [address] 2545 Sep, [facility] [place] [facility] [address] [id number] [place] [address]- 3762 Sep, [facility] [address] [id number] [place] [address]- 8111 Sep, [facility] [place] [facility] [address] [id number] [place] [address]- 2005 Aug, [facility] [address] [id number] [place] [address]- 6951 14 Aug, 2012 [facility] [place] [facility] [address] [id number] [place] [address]- 1330 Aug, [facility] [address] [id number] [place] [address]- 8006 Aug, [facility] [address] [id number] [place] [address]- 0710 Aug, [facility] [address] [id number] [place] [address]- 5593 Aug, [facility] [place] [facility] [address] [id number] [place] [address]- 9520 July, [facility] [place] [facility] [address] [id number] [place] [address]- 1939 July, [facility] [place] [facility] [address] [id number] [place] [address]- 7541 July, [facility] [place] [facility] [address] [id number] [place] [address]- 3051 July, [facility] [place] [facility] [address] [id number], [place] [address]- 5005 July, [facility] [place] [facility] [address] [id number] [place] [address]- 8266 July, [facility] [place] [facility] [address] [id number] [place] [address]- 4059 Jun, [facility] [place] [facility] [address] [id number] [place] [address]- 3587 Jun, [facility] [place] [facility] [address] [id number] [place] [address]- 4694 15 Jun, 2012 [facility] [address] [id number] [place] [address]- 8950 12 Jun, 2012 [facility] [place] [facility] [address] [id number] [place] [address]- 6086 02 Jun, 2012 [facility] [place] [facility] [address] [facility] [id number] [place] [address]- 7982 Jun, [facility] [place] [facility] [address] [id number] [place] [address]- 3057 Jun, [facility] [place] [facility] [address] [id number] [place] [address]- 1987 May, [facility] [place] [facility] [address] [facility] [id number] [place] [address]- 1737 May, [facility] [place] [facility] [id number] [place] [address]- 1211 26 Apr, 2012 [facility] [place] [facility] [address] [facility] [id number] [place] [address]- 54[address] 19 Apr, 2012 [facility] [place] [facility] [id number] [place] [address] 18 Apr, 2012 [facility] [place] [facility] [address] [id number] [place] [address] 18 Apr, 2012 [facility] [place] [facility] [address] [id number] [place] [address] 25[address] 12 Apr, 2012 [facility] [place] [facility] [address] [facility] [id number] [place] [address] 254 08 Apr, 2012 [facility] [place] [facility] [address] [facility] [id number] [place] [address] 07 Apr, 2012 [facility] [place] [facility] [address] [facility] [id number] [place] [address] 2546 07 Apr, 2012 [facility] [place] [facility] [id number] [place] [address] Apr, [facility] [address] [id number] [place] [address] Apr, [facility] [place] [facility] [address] [id number] [place] [address] Apr, [facility] [place] [facility] [address] [id number] [place] [address] Mar, [facility] [place] [facility] [address] [id number] [place] [address] Mar, [facility] [place] [facility] [address] [id number] [place] [address] Mar, [facility] [place] [facility] [address] [id number] [place] [address] Mar, [facility] [place] [facility] [address] [id number] [place] [address] Mar, [facility] [place] [facility] [address] [id number] [place] [address] Mar, [facility] [place] [facility] [address] [id number] [place] [address] Mar, [facility] [place] [facility] [address] [id number] [place] [address] Mar, [facility] [place] [facility] [address] [id number], [place] [address] Mar, [facility] [place] [facility] [address] [id number], [place] [address] Mar, [facility] [place] [facility] [address] [id number] [place] [address] Mar, [facility] [place] [facility] [address] [id number], [place] [address] Mar, [facility] [place] [facility] [address] [id number] [place] [address] Mar, [facility] [place] [facility] [address] [id number] [place] [address] Feb, [facility] [address] [id number] [place] [address] Feb, [facility] [address] [id number] [place] [address] 2546 Feb, [facility] [address] [id number] [place] [address] Feb, [facility] [address] [id number] [place] [address] 2546 Feb, [facility] [address] [id number] [place] [address] 39[address] Feb, [facility] [address] [id number] [place] [address] Feb, [facility] [address] [id number] [place] [address] Feb, [facility] [address] [id number] [place] [address] Feb, [facility] [address] [id number] [place] [address] Feb, [facility] [address] [id number] [place] [address] Feb, [facility] [place] [facility] [address] [id number] [place] [address] 2546 Feb, [facility] [address] [id number] [place] [address] 2546 Feb, [facility] [place] [facility] [address] [id number] [place] [address]- [address] Feb, [facility] [place] [facility] [address] [id number] [place] [address] Feb, [facility] [place] [facility] [address] [id number] [place] [address] Jan, [facility] [place] [facility] [address] [id number] [place] [address] Jan, [facility] [place] [facility] [address] [id number] [place] [address] Jan, [facility] [place] [facility] [address] [id number] [place] [address] 28[address] Jan, [facility] [place] [facility] [address] [id number] [place] [address] Dec, [facility] [place] [facility] [address] [id number] [place] [address] Dec, [facility] [place] [facility] [address] [id number] [place] [address] Dec, [facility] [place] [facility] [address] [facility] [id number] [place] [address] Dec, [facility] [place] [facility] [address] [id number], [place] [address] Dec, [facility] [place] [facility] [address] [facility] [id number], [place] [address] Dec, [facility] [place] [facility] [address] [facility] [id number], [place] [address] Dec, [facility] [place] [facility] [address] [facility] [id number], [place] [address] Dec, [facility] [place] [facility] [address] [id number], [place] [address] Dec, [facility] [place] [facility] [address] [facility] [id number], [place] [address] Dec, [facility] [place] [facility] [address] [facility] [id number], [place] [address] Dec, [facility] [place] [facility] [address] [facility] [id number], [place] [address] Nov, [facility] [place] [facility] [address] [id number], [place] [address] 24 Sep, 2011 [facility] [place] [facility] [address] [id number] [place] [address] 2546 20 Sep, 2011 [facility] [place] [facility] [address] [id number] [place] [address] 2546 19 Sep, 2011 [facility] [place] [facility] [address] [id number] [place] [address] 2546 17 Sep, 2011 [facility] [place] [facility] [address] [id number] [place] [address] 2546 16 Sep, 2011 [facility] [place] [facility] [address] [id number] [place] [address] 14 Sep, 2011 [facility] [place] [facility] [address] [id number] [place] [id number] 13 Sep, 2011 [facility] [place] [facility] [address] [id number] [place] [address] 12 Sep, 2011 [facility] [place] [facility] [address] [id number] [place] [address] 07 Sep, 2011 [facility] [place] [facility] [address] [id number] [place] [address] 06 Sep, 2011 [facility] [place] [facility] [address] [id number] [place] [address] 25[address] 06 Sep, 2011 [facility] [place] [facility] [address] [id number] [place] [address] 2542 05 Sep, 2011 [facility] [place] [facility] [address] [id number] [place] [address] 29 Oct, 2011 [facility] [place] [facility] [address] [id number] [place] [address] 2543 29 Oct, 2011 [facility] [place] [facility] [address] [id number] [place] [address] 28 Oct, 2011 [facility] [place] [facility] [address] [id number] [place] [address] 28 Oct, 2011 [facility] [place] [facility] [address] [id number] [place] [address] Oct, [facility] [place] [facility] [address] [id number] [place] [address] Oct, [facility] [place] [facility] [address] [id number] [place] [address] Oct, [facility] [place] [facility] [address] [id number] [place] [address] Oct, [facility] [place] [facility] [address] [id number] [place] [address] Oct, [facility] [place] [facility] [address] [id number] [place] [address] Oct, [facility] [place] [facility] [address] [id number] [place] [address] Oct, [facility] [place] [facility] [address] [id number] [place] [address] Sep, [facility] [place] [facility] [address] [id number] [place] [address] Sep, [facility] [place] [facility] [address] [id number] [place] [address] Sep, [facility] [place] [facility] [address] [id number] [place] [address] Sep, [facility] [place] [facility] [address] [id number] [place] [address] Sep, [facility] [place] [facility] [address] [id number] [place] [address] Sep, [facility] [place] [facility] [address] [id number] [place] [address] 39[address] Aug, [facility] [place] [facility] [address] [id number] [place] [address] July, [facility] [place] [facility] [address] [id number] [place] [address] July, [facility] [place] [facility] [address] [id number] [place] [address]- 16[address] Jun, [facility] [place] [facility] [address] [id number] [place] [address] Jun, [facility] [place] [facility] [address] [id number] [place] [address] Jun, [facility] [place] [facility] [address] [id number] [place] [address] Jun, [facility] [place] [facility] [address] [id number] [place] [address] 10[address] Jun, [facility] [place] [facility] [address] [id number] [place] [address] 1613 Jun, [facility] [place] [facility] [address] [id number] [place] [address] 2619 Jun, [facility] [place] [facility] [address] [id number] [place] [address]- 1618 Jun, [facility] [place] [facility] [address] [id number] [place] [address]- 0857 Jun, [facility] [place] [facility] [address] [id number] [place] [address] 45[address] Jun, [facility] [place] [facility] [address] [id number] [place] [address]- 1062 Jun, [facility] [place] [facility] [address] [id number] [place] [address] May, [facility] [place] [facility] [address] [id number] [place] [address]- [address] 16 May, 2011 [facility] [place] [facility] [address] [id number] [place] [address]- 7521 14 May, 2011 [facility] [place] [facility] [address] [id number] [place] [address]- [address] 06 May, 2011 [facility] [place] [facility] [address] [id number] [place] [address] Apr, [facility] [address] [id number] [place] [address] 2546 Apr, [facility] [place] [facility] [address] [id number] [place] [address] 2546 Apr, [facility] [place] [facility] [address] [id number] [place] [address] 2546 Apr, [facility] [place] [facility] [address] [id number] [place] [address] 2546 Apr, [facility] [place] [facility] [address] [id number] [place] [address]- 0476 Apr, [facility] [place] [facility] [address] [id number] [place] [address] 2546 Apr, [facility] [place] [facility] [address] [id number] [place] [address] 2548 Apr, [facility] [place] [facility] [address] [id number] [place] [address]- 7860 Mar, [facility] [place] [facility] [address] [id number] [place] [address] Mar, [facility] [place] [facility] [address] [id number] [place] [address] 9466 Mar, [facility] [place] [facility] [address] [id number] [place] [address] 2546 18 Mar, 2011 [facility] [place] [facility] [address] [id number] [place] [address] 2546 17 Mar, 2011 [facility] [place] [facility] [address] [id number] [place] [address] 2546 Mar, [facility] [place] [facility] [address] [id number] [place] [address] 2546 Mar, [facility] [place] [facility] [address] [id number] [place] [address]- [address]247 Mar, [facility] [place] [facility] [address] [id number] [place] [address]- 116[address] Mar, [facility] [place] [facility] [address] [id number] [place] [address]- 5869 Mar, [facility] [place] [facility] [address] [id number] [place] [address]- 4479 Mar, [facility] [place] [facility] [address] [id number] [place] [address]- 8077 Mar, [facility] [place] [facility] [address] [id number] [place] [address]- 7117 Mar, [facility] [place] [facility] [address] [id number] [place] [address]- 9635 Mar, [facility] [place] [facility] [address] [id number] [place] [address]- 2944 Mar, [facility] [place] [facility] [address] [id number] [place] [address]- 5093 Mar, [facility] [place] [facility] [address] [id number] [place] [address]- 0087 Feb, [facility] [place] [facility] [address] [id number] [place] [address]- 4818 Feb, [facility] [place] [facility] [address] [id number], [place] [address] Feb, [facility] [place] [facility] [address] [id number], [place] [address]- [address] Jan, [facility] [place] [facility] [address] [id number] [place] [address]- 9501 Jan, [facility] [place] [facility] [address] [id number], [place] [address]- 6560 Jan, [facility] [place] [facility] [address] [id number] [place] [address]- 1690 Dec, [facility] [place] [facility] [address] [id number] [address] Dec, [facility] [address] [id number] [address] Nov, [facility] [address] [id number], [place] [address] 2546 Oct, [facility] [id number], [place] [address] 2546 Oct, [facility] [id number], [place] [address] 2546 Oct, [facility] [id number], [place] [address]696 Sep, [facility] [id number], [place] [address] 2546 Apr, [facility] [id number], [place] [address]- 97[address] Feb, [facility] [address] [id number], [place] [address] 2546 Jan, IMMUNIZATIONS No Known Immunizations SOCIAL HISTORY Never Assessed REASON FOR VISIT intake PLAN OF CARE Activity Details Follow Up 4 Weeks Reason: VITAL SIGNS Height 70 in 2017-01-19 Weight 262.0 lbs 2017-01-19 Heart Rate 100 bpm 2017-01-19 Respiratory Rate 20 2017-01-19 BMI 37.59 kg/m2 2017-01-19 Blood pressure systolic 130 mmHg 2017-01-19 Blood pressure diastolic 90 mmHg 2017-01-19 MEDICATIONS Medication Instructions Dosage Frequency Start Date End Date Duration Status Topamax 100 mg Orally Twice a day 1 tablet 12h 30 Active Zyrtec Allergy 10 MG Orally Once a day 1 tablet 24h Active Abilify 10 MG Orally Once a day 1 tablet 24h Jun, 30 days Active Neurontin 300 MG Orally Three times a day 1 capsule 8h Dec, 30 days Active Ventolin HFA 90 mcg/actuation Inhalation every 4 hrs 2 puffs as needed 4h Dec, Active Multivitamin Adult - Active Cymbalta 60 mg Orally PALS Once a day 2 capsule 24h Feb, 30 days Active Oxygen Active Ipratropium-Albuterol 0.5-2.5 (3) MG/3ML Inhalation Four times a day 3 ml as needed for Shortness of breath 6h Active Trulicity 0.75 MG/0.5ML Subcutaneous once weekly 0.5 ml Jun, 90 days Active Advair Diskus 250 mcg-50 mcg Inhalation Twice a day 1 puff 12h Dec, Active Spiriva HandiHaler 18 MCG Inhalation Once a day 1 capsule 24h Active RESULTS No Results PROCEDURES No Known procedures INSTRUCTIONS MEDICATIONS ADMINISTERED No Known Medications MEDICAL (GENERAL) HISTORY Type Description Date Medical History COPD Medical History asthma Medical History heart cath Medical History Social phobia 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 Hospitalization History for COPD x2 Mar 2017 Hospitalization History Upper GI bleed at apr 2017 Hospitalization History [facility]- COPD Exacerbation, diarrhea 05/23/2017 Hospitalization History COPD exacerbation-[facility] 06/13/17
--- OUTSIDE RECORDS SUMMARY | 2017-09-18 19:37 | XMS REPORT ---
Author Author THOMAS WOLF 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 Active Problem Thrush B37.0 Active 29981101 Problem TMJ (sprain of temporomandibular joint) S03.4XXA Active 35056151 Problem Tobacco abuse Z72.0 Active 02478677 Problem Non morbid obesity due to excess calories E66.09 Active 564109810 Problem Migraine G43.909 Active 44964490 Problem History of MRSA infection Z86.14 Active 220847721 Problem Knee pain, left M25.562 Active 37891975 Problem Obesity, unspecified obesity severity, unspecified obesity type E66.9 Active 734576674 Problem Migraine without aura and without status migrainosus, not intractable G43.009 Active 943067054 Problem Other emphysema J43.8 Active 38376294 Problem Chronic obstructive pulmonary disease with acute exacerbation J44.1 Active 805671544 Problem Intractable cyclical vomiting with nausea G43.A1 Active 54558716 Problem Chronic constipation K59.09 Active 784944959 Problem Acute bronchitis with COPD J44.0 Active 195343778852479 Problem Encounter for tobacco use cessation counseling Z71.6 Active 344481091 Problem Methamphetamine use disorder, moderate, 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 Active 62573006 Problem Chronic bronchitis, unspecified chronic bronchitis type J42 Active 37859239 Problem Viral illness B34.9 Active 73735133 Problem Diabetes E11.9 Active 947703151 Problem Memory loss R41.3 Active 43773649 Problem Left knee pain M25.562 Active 69737307 Problem Dry mouth R68.2 Active 50550879 Problem Yeast vaginitis B37.3 Active 42171112 Problem Generalized anxiety disorder F41.1 Active 32317642 Problem Bipolar disorder with depression F31.30 Active 21264943 Problem Bipolar disorder, unspecified F31.9 Active 48669684 Problem Bipolar disorder, current episode depressed, severe, without psychotic features F31.4 Active 45922863 ALLERGIES No Information ENCOUNTERS Encounter Location Date Diagnosis [facility] [place] [address] [address] July, [facility] [place] [address] [address] July, Diabetes E11.9 and Chronic obstructive pulmonary disease with acute exacerbation J44.1 [facility] [place] [address] [address] Jun, Chronic obstructive pulmonary disease with acute exacerbation J44.1 ; Diabetes E11.9 and Tobacco abuse Z72.0 [facility] [place] [address] [address] Jun, [facility] [place] [address] 89[address]- 5077 Jun, [facility] [place] [id number] [place] [address] 57860- 5896 May, [facility] [place] [id number] [place] [address] 63445- 9447 May, [facility] [id number] [place] [address] 36528 -6957 17 May, 2017 [facility] [place] [address] [address]- [address]23 16 May, 2017 [facility] [place] [id number] [place] [address] 16696- 9844 15 May, 2017 [facility] [place] [address] [address]- [address] May, Diarrhea, unspecified type R19.7 and Intractable cyclical vomiting with nausea G43.A1 [facility] [place] [id number] [place] [address] 54019- 6860 May, [facility] [place] [address] 39967- 7267 05 May, 2017 [facility] [place] [address] [address]- [address] 28 Apr, 2017 COPD exacerbation J44.1 ; Esophageal candidiasis B37.81 ; Other acute gastritis with hemorrhage K29.01 and Acute posthemorrhagic anemia D62 [place] [address] [address]- 6131 Apr, Viral illness B34.9 and COPD exacerbation J44.1 [facility] [address] [address] Apr, Shortness of breath R06.02 and Pneumonia of both lower lobes due to infectious organism J18.9 [facility] [address] [address] Mar, COPD with acute exacerbation J44.1 [place] [address] 7[address]- 7551 Mar, Chronic obstructive pulmonary disease with acute exacerbation J44.1 and Diabetes E11.9 [facility] [place] [id number] [place] [address] 16758- 9120 Mar, [facility] [place] [id number] [place] [address] 96998- 5365 Mar, [facility] [address] [address]78 Mar, COPD exacerbation J44.1 [facility] [place] [address] [address]- 3733 09 Mar, 2017 [facility] [place] [address] [address]- [address]88 Mar, Migraine G43.909 ; Hypokalemia E87.6 and Type 2 diabetes mellitus without complications E11.9 [place] [id number] [place] [address] 62947- 8113 Feb, [place] [id number] [place] [address] 73864- 5480 Feb, [place] [id number] [place] [address] 40441- 5437 Feb, Methamphetamine use disorder, moderate, 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 ; Major depressive disorder, recurrent, moderate F33.1 ; Anxiety disorder, unspecified F41.9 and Tobacco abuse Z72.0 [place] [id number] [place] [address] 43890- 4510 Jan, Major depressive disorder, recurrent, moderate F33.1 [place] [id number] [place] [address] 65974- 3566 Jan, [place] [id number] [place] [address] 26834- 2358 Jan, [place] [id number] [place] [address] 61600- 1301 Jan, Major depressive disorder, recurrent, moderate F33.1 [place] [id number] [place] [address] 97161- 9132 Jan, Major depressive disorder, recurrent, moderate F33.1 ; Anxiety disorder, unspecified F41.9 ; Methamphetamine use disorder, moderate, 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 and Tobacco abuse Z72.0 [place] [id number] [place] [address] 93481- 5186 07 Jan, 2017 [place] [id number] [place] [address] 25903- 5679 06 Jan, 2017 Chronic obstructive pulmonary disease with acute exacerbation J44.1 and Diabetes E11.9 [place] [id number] [place] [address] 87848- 6688 Jan, [facility] [place] [address] [place] [address] 83649- 0706 Jan, [facility] [place] [id number] [place] [address] 68462- 4747 Dec, Acute respiratory failure with hypoxia J96.01 ; Chronic bronchitis, unspecified chronic bronchitis type J42 and Tobacco use Z72.0 [facility] [place] [id number] [place] [address] 69211- 2319 Dec, [facility] [id number] [place] [address] [id number] Nov, Dental caries K02.9 and Dental examination Z01.20 [facility] [place] [id number] [place] [address] 22802- 7841 Nov, Major depressive disorder, recurrent, moderate F33.1 ; Anxiety disorder, unspecified F41.9 and 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 [facility] [address] [place] [address] [id number] Oct, Dental examination Z01.20 [facility] [place] [id number] [place] [address] 47793- 6219 Oct, [facility] [place] [id number] [place] [address] 16286- 8152 Oct, Diabetes E11.9 and Thrush B37.0 [facility] [place] [id number] [place] [address] 88928- 2996 Oct, [facility] [place] [id number] [place] [address] 60935- 6908 Oct, [facility] [place] [id number] [place] [address] 60554- 0353 Oct, [facility] [place] [id number] [place] [address] 56808- 6196 Sep, Major depressive disorder, recurrent, moderate F33.1 ; Anxiety disorder, unspecified F41.9 and Bipolar disorder, unspecified F31.9 [facility] [place] [address] [address] Sep, Acute exacerbation of chronic obstructive pulmonary disease (COPD) J44.1 and Migraine G43.909 [facility] [place] [id number] [place] [address] 63549- 5409 Sep, [facility] [address] [id number] Sep, [facility] [place] [id number] [place] [address] 36287- 1906 Sep, Acute exacerbation of chronic obstructive pulmonary disease (COPD) J44.1 [facility] [id number] [place] [address] 44857 -2303 Sep, Acute exacerbation of chronic obstructive pulmonary disease (COPD) J44.1 [facility] [place] [id number] [place] [address] 70117- 5777 Aug, [facility] [place] [id number] [place] [address] 21505- 3543 Aug, Major depressive disorder, recurrent, moderate F33.1 ; Anxiety disorder, unspecified F41.9 and 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 [facility] [place] [address] [place] [address] 40196- 8701 Aug, Wheezing R06.2 ; Non morbid obesity due to excess calories E66.09 ; Migraine without aura and without status migrainosus, not intractable G43.009 and Tobacco abuse Z72.0 [facility] [address] [place] [address] [id number] [phone] Aug, 2016 Encounter for dental examination Z01.20 [facility] [place] [id number] [place] [address] 39709- 9559 02 Aug, 2016 Major depressive disorder, recurrent, moderate F33.1 ; Anxiety disorder, unspecified F41.9 and 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 [facility] [place] [address] [address]- [address]758 July, [facility] [place] [id number] [place] [address] 91495- 7924 July, [facility] [place] [id number] [place] [address] 49269- 4343 July, [facility] [place] [id number] [place] [address] 40728- 0479 July, Diabetes E11.9 [facility] [place] [address] [place] [address] 64218- 5757 Jun, Major depressive disorder, recurrent, moderate F33.1 [place] [address] [place] [address] 84245- 3783 Jun, Major depressive disorder, recurrent, moderate F33.1 ; 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 ; Generalized anxiety disorder F41.1 and Bipolar disorder, unspecified F31.9 [facility] [place] [address] [place] [address] 83307- 8500 Jun, Diabetes E11.9 ; Migraine G43.909 ; Thrush B37.0 and Wheezing R06.2 [facility] [address] [id number] Jun, Dental examination Z01.20 [facility] [place] [address] [place] [address] 78738- 8273 Jun, [facility] [place] [address] [place] [address] 01068- 0039 Jun, Major depressive disorder, recurrent, moderate F33.1 ; Anxiety disorder, unspecified F41.9 and 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9 and 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 [place] [address] [address]25- 1447 Jun, RLQ abdominal pain R10.31 ; Diabetes E11.9 ; Obesity, unspecified obesity severity, unspecified obesity type E66.9 ; Wheezing R06.2 and Abnormal urinalysis R82.[address] 16545- 0969 May, [address] 81524- 0667 May, Well woman exam Z01.419 ; Breast cancer screening Z12.39 ; Cervical cancer screening Z12.4 ; Urinary frequency R35.0 ; Edema, unspecified type R60.9 and Chronic constipation K59.09 [id number] [place] [address] 94392- 7428 May, Major depressive disorder, recurrent, moderate F33.1 ; Anxiety disorder, unspecified F41.9 and 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 [facility] [id number] [place] [address] [id number] May, Dental examination Z01.20 [place] [address] 92109- 1272 May, [address] 89796- 8262 May, [address] 72610- 2083 May, Chronic constipation K59.09 [place] [address] [address]- 9270 Apr, [place] [id number] [place] [address] 22633- 0175 Apr, Major depressive disorder, recurrent, moderate F33.1 ; Anxiety disorder, unspecified F41.9 and 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 [place] [id number] [place] [address] 46524- 7535 Apr, [place] [id number] [place] [address] 92033- 6024 Mar, Major depressive disorder, recurrent, moderate F33.1 [place] [id number] [place] [address] 08491- 0706 Mar, Major depressive disorder, recurrent, moderate F33.1 ; Generalized anxiety disorder F41.1 and Bipolar I disorder, most recent episode depressed with anxious distress F31.30 [place] [address] [address]- 8513 Mar, Diabetes E11.9 ; Non morbid obesity due to excess calories E66.09 ; Breast cancer screening Z12.39 and Encounter for immunization Z23 [place] [address] [place] [address] 02420- 6544 Mar, Major depressive disorder, recurrent, moderate F33.1 ; Anxiety disorder, unspecified F41.9 and 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 [place] [address] [address]- 9257 Mar, [place] [id number] [place] [address] 15746- 3201 Feb, Major depressive disorder, recurrent, moderate F33.1 ; Anxiety disorder, unspecified F41.9 and 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 [place] [id number] [place] [address] 54934- 8482 Feb, [facility] [place] [id number] [place] [address] 61897- 2585 Feb, [facility] [place] [id number] [place] [address] 29105- 0770 Jan, Major depressive disorder, recurrent, moderate F33.1 ; Generalized anxiety disorder F41.1 and Bipolar disorder, current episode depressed, severe, without psychotic features F31.4 [place] [id number] [place] [address] 49693- 5302 18 Jan, 2016 Major depressive disorder, recurrent, moderate F33.1 ; Anxiety disorder, unspecified F41.9 and 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 [place] [id number] [place] [address] 89476- 1377 16 Jan, 2016 Bronchitis J40 [place] [address] 78476- 4892 Jan, [place] [id number] [place] [address] 51671- 9937 Jan, [place] [id number] [place] [address] 25905- 7922 Jan, Elbow injury, right, initial encounter S59.901A ; Multiple contusions T14.8 and Cervical strain, acute, initial encounter S16.1XXA [place] [id number] [place] [address] 61078- 7286 Dec, Major depressive disorder, recurrent, moderate F33.1 ; Generalized anxiety disorder F41.1 and Bipolar disorder with depression F31.30 [place] [id number] [place] [address] 43203- 3235 Dec, [place] [id number] [place] [address] 78791- 4628 Dec, [place] [id number] [place] [address] 14608- 0505 Dec, [facility] [place] [address], [place] [address]- 4936 Dec, [facility] [place] [address] [place] [address] 46560- 8865 Dec, Yeast infection B37.9 [facility] [place] [address] [place] [address] 49489- 8493 Dec, Pneumonia of both lungs due to methicillin resistant Staphylococcus aureus (MRSA), unspecified part of lung J15.212 and Benzodiazepine overdose, accidental or unintentional, subsequent encounter T42.4X1D [place] [address] [place] [address] 30471- 0533 Dec, [place] [address] [place] [address] 86903- 2912 Dec, [place] [id number] [place] [address] 11489- 1514 Dec, Knee pain, left M25.562 and Edema, unspecified type R60.9 [place] [address] [place] [address] 66579- 9597 Dec, [facility] [place] [address] [place] [address] 55268- 0210 Dec, Anxiety disorder, unspecified F41.9 and Bipolar disorder, unspecified F31.9 [place] [address] [place] [address] 74608- 4408 Nov, Major depressive disorder, recurrent, moderate F33.1 ; Anxiety disorder, unspecified F41.9 and 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 [facility] [place] [address] [place] [address] 44965- 4751 Nov, [place] [address] [place] [address] 00282- 0618 Nov, Migraine without aura and without status migrainosus, not intractable G43.009 [place] [id number] [place] [address] 70984- 7256 Nov, Migraine G43.909 [place] [id number] [place] [address] 05985- 9319 Nov, [place] [id number] [place] [address] 79129- 6661 Nov, Major depressive disorder, recurrent, moderate F33.1 ; Anxiety disorder, unspecified F41.9 and 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 [place] [id number] [place] [address] 80854- 7104 Oct, Chronic constipation K59.09 and Obesity, unspecified obesity severity, unspecified obesity type E66.9 [place] [id number] [place] [address] 36889- 7432 Oct, Obesity, unspecified obesity severity, unspecified obesity type E66.9 ; Chronic constipation K59.09 and Anxiety disorder, unspecified F41.9 [place] [id number] [place] [address] 63667- 2256 Oct, [place] [id number] [place] [address] 87302- 9362 Sep, Diabetes E11.9 ; Edema, unspecified type R60.9 ; Varicose vein of leg I83.90 and Obesity, unspecified obesity severity, unspecified obesity type E66.9 [place] [id number] [place] [address] 87738- 1150 Sep, Edema, unspecified type R60.9 ; Diabetes E11.9 and Knee pain , left M25.562 [place] [id number] [place] [address] 42542- 9998 Sep, [place] [id number] [place] [address] 68432- 0386 Sep, [place] [id number] [place] [address] 14940- 0737 Sep, Major depressive disorder, recurrent, moderate F33.1 ; Generalized anxiety disorder F41.1 and Bipolar disorder, unspecified F31.9 [facility] [place] [address] [place] [address] 36222- 7154 Aug, Chondromalacia of left knee M94.262 [facility] [place] [address] [address] Aug, Major depressive disorder, recurrent, moderate F33.1 ; Anxiety disorder, unspecified F41.9 and 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 [facility] [place] [id number] [place] [address]- [address] Aug, [facility] [place] [id number] [place] [address] 74[address]- 2709 Aug, Osteoarthritis of left knee M17.9 [facility] [place] [id number] [place] [address]- [address] Aug, [facility] [place] [id number] [place] [address] 31657- [address] July, Major depressive disorder, recurrent, moderate F33.1 ; Anxiety disorder, unspecified F41.9 and 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 [facility] [place] [address] [address] July, [facility] [place] [id number] [place] [address] 49095- 1196 July, Chronic constipation K59.09 [facility] [place] [id number] [address] Jun, [facility] [place] [id number] [place] [address] 39626- 3992 Jun, [facility] [place] [address] [address] 58[address] Jun, Osteoarthritis of left knee M17.9 [facility] [place] [id number] [place] [address] 51111- 6244 Jun, [place] [id number] [place] [address] 02643- 8398 Jun, Generalized anxiety disorder F41.1 ; Bipolar disorder, unspecified F31.9 and Major depressive disorder, recurrent, moderate F33.1 [place] [id number] [place] [address] 70827- 5788 Jun, Migraine G43.909 [place] [address] 22434- 9507 Jun, Left knee pain M25.562 ; Chronic constipation K59.09 ; Dry mouth R68.2 ; Yeast vaginitis B37.3 and Memory loss R41.3 [place] [id number] [place] [address] 84390- 8808 Jun, [place] [address] 55275- 8984 May, [place] [id number] [place] [address] 87283- 7921 May, [place] [id number] [place] [address] 34459- 1751 May, [place] [id number] [place] [address] 44305- 8569 May, [place] [id number] [place] [address] 14953- 1921 May, Acute bronchitis with COPD J44.0 ; Knee pain, left M25.562 and Encounter for tobacco use cessation counseling Z71.6 [place] [id number] [place] [address] 24128- 1834 May, [place] [id number] [place] [address] 81440- 4107 Apr, Diabetes E11.9 ; TMJ (sprain of temporomandibular joint) S03.4XXA ; Tobacco abuse Z72.0 ; Migraine G43.909 and Anxiety F41.9 [facility] [place] [id number] [place] [address] 04202- 8764 Apr, Generalized anxiety disorder F41.1 and Bipolar disorder, unspecified F31.9 [facility] [place] [id number] [place] [address] 07514- 7561 Apr, Major depressive disorder, recurrent, moderate F33.1 ; Anxiety disorder, unspecified F41.9 and 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 [facility] [place] [id number] [place] [address] 40168- 0546 Apr, [facility] [place] [id number] [place] [address] 60547- 8672 Mar, [facility] [place] [id number] [place] [address] 47998- 0732 Feb, [facility] [place] [id number] [place] [address] 08406- 1593 14 Feb, 2015 Major depressive disorder, recurrent, moderate F33.1 ; Anxiety disorder, unspecified F41.9 and 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 [facility] [place] [id number] [place] [address] 85288- 3604 Feb, [facility] [place] [id number] [place] [address] 27530- 7522 Feb, Generalized anxiety disorder F41.1 and Bipolar disorder, unspecified F31.9 [facility] [place] [id number] [place] [address] 21224- 2304 Jan, [facility] [place] [id number] [place] [address] 79960- 3876 Jan, [facility] [place] [id number] [place] [address] 28075- 1318 Jan, Bipolar disorder, unspecified F31.9 and Generalized anxiety disorder F41.1 [facility] [place] [id number] [place] [address] 62807- 9740 14 Dec, 2014 [facility] [place] [address] 44306- 3809 Dec, Bipolar disorder, unspecified F31.9 and Generalized anxiety disorder F41.1 [facility] [place] [id number] [place] [address] 61440- 9706 Dec, Generalized anxiety disorder F41.1 and Major depressive disorder, recurrent, moderate F33.1 [facility] [place] [id number] [place] [address] 26695- 5527 Oct, Headache 784.0 ; Cough 786.2 ; Vomiting and diarrhea 787.03 and Dysuria 788.1 [facility] [place] [id number] [place] [address] 90288- 4351 Aug, [facility] [place] [address] 60693- 8909 Aug, Headache 784.0 and Shortness of breath 786.05 [facility] [place] [id number] [place] [address] 81335- 4380 Aug, [facility] [place] [id number] [place] [address] 65018- 6787 Aug, Migraine 346.90 [facility] [place] [id number] [place] [address] 34771- 6361 Jun, [facility] [place] [id number] [place] [address] 86740- 8896 Jun, [facility] [place] [id number] [place] [address] 41354- 4740 May, [facility] [place] [id number] [place] [address] [id number]- 9377 May, [facility] [place] [id number] [place] [address] 97854- 3924 May, [facility] [place] [address] [facility] [id number] [place] [address]- 9121 May, [facility] [place] [facility] [address] [id number] [place] [address]- 8429 May, [facility] [place] [facility] [address] [id number] [place] [address]- 7727 May, [facility] [place] [facility] [address] [id number] [place] [address]- 5142 Apr, 2014 [facility] [place] [facility] [address] [id number] [place] [address]- 4855 Apr, 2014 [facility] [place] [facility] [address] [id number] [place] [address]- 3002 Apr, 2014 [facility] [place] [facility] [address] [id number] [place] [address]- 8178 Apr, 2014 [facility] [place] [facility] [address] [id number] [place] [address]- 4506 Apr, [facility] [place] [facility] [address] [id number] [place] [address]- 8917 Mar, [facility] [place] [facility] [address] [id number] [place] [address]- 3872 Mar, [facility] [place] [facility] [address] [id number] [place] [address]- 3201 Mar, [facility] [place] [facility] [address] [id number] [place] [address]- 2563 Mar, [facility] [place] [facility] [address] [id number] [place] [address]- 4401 Feb, [facility] [place] [facility] [address] [id number] [place] [address]- 2943 Feb, [facility] [place] [facility] [address] [id number] [place] [address]- 7059 18 Feb, 2014 [facility] [place] [facility] [address] [id number], [place] [address]- 5214 18 Feb, 2014 [facility] [place] [facility] [address] [id number] [place] 6575 Feb, [facility] [place] [facility] [address] [id number] [place] [address]- 0767 Feb, [facility] [place] [facility] [address] [id number] [place] [address]- 9289 Feb, [facility] [place] [facility] [address] [id number] [place] 8269 Feb, [facility] [place] [facility] [address] [id number] [place] [address]- 9871 Feb, [facility] [place] [facility] [address] [id number] [place] [address]- 9463 Feb, [facility] [place] [facility] [address] [id number] [place] [address]- 1869 Feb, [facility] [place] [facility] [address] [id number] [place] [address]- 0719 Feb, [facility] [place] [facility] [address] [id number] [place] [address]- 3241 Jan, [facility] [place] [facility] [address] [id number] [place] [address]- 2132 Jan, [facility] [place] [facility] [address] [id number], [place] [address]- 8449 Dec, [facility] [place] [facility] [address] [id number], [place] [address]- 3242 Dec, [facility] [place] [facility] [address] [id number] [place] [address]- 8081 Dec, [facility] [place] [facility] [address] [id number] [place] [address]- 6732 Dec, [facility] [place] [facility] [address] [id number] [place] 3936 Dec, [facility] [place] [facility] [address] [id number] [place] [address]- 3492 Dec, [facility] [place] [facility] [address] [id number] [place] [address]- 8220 Sep, [facility] [place] [facility] [address] [id number] [place] [address]- 3539 Sep, [facility] [place] [facility] [address] [id number] [place] [address]- 9689 Sep, [facility] [place] [facility] [address] [id number] [place] [address]- 3591 Sep, [facility] [place] [facility] [address] [id number] [place] [address]- 0186 Sep, [facility] [place] [facility] [address] [id number] [place] [address]- 9812 Sep, [facility] [place] [facility] [address] [id number] [place] [address]- 3762 Sep, [facility] [place] [facility] [address] [id number] [place] [address]- 9542 Sep, [facility] [place] [facility] [address] [id number] [place] [address]- 5129 Sep, [facility] [place] [facility] [address] [id number] [place] [address]- 4240 Sep, [facility] [place] [facility] [address] [id number] [place] [address]- 5803 Aug, [facility] [place] [facility] [address] [id number] [place] [address]- 3678 Aug, [facility] [place] [facility] [address] [id number] [place] [address]- 9577 Aug, [facility] [place] [facility] [address] [id number] [place] [address]- 9815 Aug, [facility] [place] [facility] [address] [id number] [place] [address]- 9294 Aug, [facility] [place] [facility] [address] [id number] [place] [address]- 4277 Aug, [facility] [place] [facility] [address] [id number] [place] [address]- 5812 Aug, [facility] [place] [facility] [address] [id number] [place] [address]- 0862 Aug, [facility] [place] [facility] [address] [id number] [place] [address]- 6266 Aug, [facility] [place] [facility] [address] [id number] [place] [address]- 3345 Aug, [facility] [place] [facility] [address] [id number] [place] [address]- 8790 Aug, [facility] [place] [facility] [address] [id number] [place] [address]- 9393 Aug, [facility] [place] [facility] [address] [id number] [place] [address]- 8750 Aug, [facility] [place] [facility] [address] [id number] [place] [address]- 9800 July, [facility] [place] [facility] [address] [id number] [place] [address]- 0292 July, [facility] [place] [facility] [address] [id number] [place] [address]- 8618 July, [facility] [place] [facility] [address] [id number] [place] [address]- 2990 July, [facility] [place] [facility] [address] [id number] [place] [address]- 2587 July, [facility] [place] [facility] [address] [id number] [place] [address]- 5058 July, [facility] [place] [facility] [address] [id number] [place] [address]- 8748 July, [facility] [place] [facility] [address] [id number] [place] [address]- 6234 23 Jun, 2013 [facility] [place] [facility] [address] [id number] [place] [address]- 3167 23 Jun, 2013 [facility] [place] [facility] [address] [id number] [place] [address]- 8505 18 Jun, 2013 [facility] [place] [facility] [address] [id number] [place] [address]- 4127 16 Jun, 2013 [facility] [place] [facility] [address] [id number] [place] [address]- 6751 16 Jun, 2013 [facility] [place] [facility] [address] [id number] [place] [address]- 2293 08 Jun, 2013 [facility] [place] [facility] [address] [id number] [place] [address]- 1411 08 Jun, 2013 [facility] [place] [facility] [address] [id number] [place] [address]- 5670 17 May, 2013 [facility] [place] [facility] [address] [id number] [place] [address]- 2661 17 May, 2013 [facility] [place] [facility] [address] [id number] [place] [address]- 0790 14 May, 2013 [facility] [place] [facility] [address] [id number] [place] [address]- 5793 14 May, 2013 [facility] [place] [facility] [address] [id number] [place] [address]- 7115 13 May, 2013 [facility] [place] [facility] [address] [id number] [place] [address]- 6013 13 May, 2013 [facility] [place] [facility] [address] [id number] [place] [address]- 7245 10 May, 2013 [facility] [place] [facility] [address] [id number] [place] [address]- 2864 10 May, 2013 [facility] [place] [facility] [address] [id number] [place] [address]- 0926 07 May, 2013 [facility] [place] [facility] [address] [id number] [place] [address]- 8420 Apr, [facility] [place] [facility] [address] [id number] [place] [address]- 2316 Apr, [facility] [place] [facility] [address] [id number] [place] [address]- 2546 Apr, [facility] [place] [facility] [address] [id number] [place] [address]- 0853 Apr, [facility] [place] [facility] [address] [id number] [place] [address]- 6700 Apr, [facility] [place] [facility] [address] [id number] [place] [address]- 5626 Apr, [facility] [place] [facility] [address] [facility] [id number] [place] [address]- 7399 Apr, [facility] [place] [facility] [address] [id number] [place] [address]- 6001 Apr, [facility] [place] [facility] [address] [id number] [place] [address]- 8591 Apr, [facility] [place] [facility] [address] [facility] [id number] [place] [address]- 8166 Apr, [facility] [place] [facility] [address] [id number] [place] [address]- 0767 Mar, [facility] [place] [facility] [address] [id number] [place] [address]- 0114 Mar, [facility] [place] [facility] [address] [id number] [place] [address]- 9389 Mar, [facility] [place] [facility] [address] [id number] [place] [address]- 6907 Mar, [facility] [place] [facility] [address] [id number] [place] [address]- 0442 Mar, [facility] [place] [facility] [address] [id number], [place] [address]- 3316 Mar, [facility] [address] [id number] [place] [address]- 6191 Mar, [facility] [place] [facility] [address] [id number], [place] [address]- 3497 Mar, [facility] [place] [facility] [address] [id number] [place] [address]- 7640 Feb, [facility] [place] [facility] [address] [id number] [place] [address]- 3511 Feb, [facility] [place] [facility] [address] [id number] [place] [address]- 5668 Jan, [facility] [place] [facility] [address] [id number] [place] [address]- 3778 Jan, [facility] [place] [facility] [address] [id number], [place] [address]- 6592 Jan, [facility] [place] [facility] [address] [id number], [place] [address]- 7987 Jan, [facility] [place] [facility] [address] [id number] [place] [address]- 3591 Jan, [facility] [place] [facility] [address] [facility] [id number] [place] [address]- 2037 Jan, [facility] [place] [facility] [address] [id number], [place] [address]- 8085 Jan, [facility] [place] [facility] [address] [id number], [place] [address]- 6250 05 Jan, 2013 [facility] [place] [facility] [address] [id number], [place] [address]- 9668 13 Dec, 2012 [facility] [place] [facility] [address] [id number], [place] [address]- 1380 10 Dec, 2012 [facility] [place] [facility] [address] [id number], [place] [address]- 8880 10 Dec, 2012 [facility] [place] [facility] [address] [id number] [place] [address]- 3234 20 Nov, 2012 [facility] [place] [facility] [address] [id number] [place] [address]- 9436 13 Nov, 2012 [facility] [place] [facility] [address] [id number] [place] [address] 2546 12 Nov, 2012 [facility] [place] [facility] [address] [id number] [place] [address] 2546 09 Nov, 2012 [facility] [place] [facility] [address] [id number] [place] [address] 2549 06 Nov, 2012 [facility] [place] [facility] [address] [id number] [place] [address]- 3362 Nov, 2012 [facility] [place] [facility] [address] [id number] [place] [address]- 6390 Oct, [facility] [place] [facility] [address] [id number] [place] [address]- 0074 Oct, [facility] [place] [facility] [address] [id number] [place] [address]- 7628 Sep, [facility] [place] [facility] [address] [id number] [place] [address]- 2428 Sep, [facility] [place] [facility] [address] [id number] [place] [address]- 5517 Sep, [facility] [place] [facility] [address] [id number] [place] [address]- 8780 Sep, [facility] [place] [facility] [address] [id number] [place] [address]- 254 Sep, [facility] [place] [facility] [address] [id number] [place] [address]- 2545 Sep, [facility] [place] [facility] [address] [id number] [place] [address] 2541 Sep, [facility] [place] [facility] [address] [id number] [place] [address]- 5582 14 Aug, 2012 [facility] [address] [id number] [place] [address]- 4743 14 Aug, 2012 [facility] [place] [facility] [address] [id number] [place] [address]- 0186 13 Aug, 2012 [facility] [place] [facility] [address] [id number] [place] [address]- 5270 12 Aug, 2012 [facility] [place] [facility] [address] [id number] [place] [address]- 1692 11 Aug, 2012 [facility] [address] [id number] [place] [address]- 9484 Aug, [facility] [place] [facility] [address] [id number] [place] [address]- 5480 July, [facility] [place] [facility] [address] [id number] [place] [address]- 6699 July, [facility] [place] [facility] [address] [id number] [place] [address]- 1429 July, [facility] [place] [facility] [address] [id number] [place] [address]- 9237 July, [facility] [place] [facility] [address] [id number] [place] [address]- 1547 July, [facility] [place] [facility] [address] [id number] [place] [address] July, [facility] [place] [facility] [address] [id number], [place] [address] Jun, [facility] [place] [facility] [address] [id number] [place] [address] Jun, [facility] [place] [facility] [address] [id number] [place] [address] 15 Jun, 2012 [facility] [place] [facility] [address] [id number] [place] [address] Jun, [facility] [place] [facility] [address] [id number] [place] [address] 02 Jun, 2012 [facility] [place] [facility] [address] [id number] [place] [address] Jun, [facility] [place] [facility] [address] [id number] [place] [address] Jun, [facility] [place] [facility] [address] [id number] [place] [address] 07 May, 2012 [facility] [place] [facility] [address] [id number] [place] [address] May, [facility] [place] [facility] [address] [id number] [place] [address] 26 Apr, 2012 [facility] [place] [facility] [address] [facility] [id number] [place] [address] Apr, [facility] [place] [facility] [address] [facility] [id number] [place] [address] Apr, [facility] [place] [facility] [address] [facility] [id number] [place] [address] Apr, [facility] [place] [facility] [address] [id number] [place] [address] Apr, [facility] [place] [facility] [address] [facility] [id number] [place] [address] 08 Apr, 2012 [facility] [place] [facility] [address] [facility] [id number] [place] [address] Apr, [facility] [place] [facility] [address] [facility] [id number] [place] [address]42 07 Apr, 2012 [facility] [place] [facility] [address] [facility] [id number] [place] [address] Apr, [facility] [place] [facility] [address] [facility] [id number] [place] [address] 06 Apr, 2012 [facility] [place] [facility] [address] [facility] [id number] [place] [address] 49[address] Apr, [facility] [address] [id number] [place] [address] Mar, [facility] [address] [id number] [place] [address] 9673 Mar, [facility] [address] [id number] [place] [address] Mar, [facility] [address] [id number] [place] [address] 1266 Mar, [facility] [address] [id number] [place] [address] 110[address] Mar, [facility] [address] [id number] [place] [address]609 Mar, [facility] [address] [id number] [place] [address] 47[address] Mar, [facility] [address] [id number] [place] [address] 9960 Mar, [facility] [address] [id number] [place] [address] 1775 Mar, [facility] [address] [id number] [place] [address] 238[address] Mar, [facility] [address] [id number] [place] [address] Mar, [facility] [address] [id number] [place] [address] Mar, [facility] [place] [facility] [address] [id number] [place] [address] Mar, [facility] [place] [facility] [address] [id number] [place] [address]67 Feb, [facility] [address] [id number] [place] [address] Feb, [facility] [address] [id number] [place] [address] 18 Feb, 2012 [facility] [address] [id number] [place] [address]- [address] 18 Feb, 2012 [facility] [place] [facility] [address] [id number] [place] [address] 1216 Feb, [facility] [address] [id number] [place] [address] Feb, [facility] [place] [facility] [address] [id number] [place] [address] Feb, [facility] [address] [id number] [place] [address]706 Feb, [facility] [address] [id number] [place] [address] 2010 Feb, [facility] [address] [id number] [place] [address] Feb, [facility] [address] [id number] [place] [address] Feb, [facility] [place] [facility] [address] [id number] [place] [address]366 Feb, [facility] [address] [id number] [place] [address] Feb, [facility] [place] [facility] [address] [id number] [place] [address]885 Feb, [facility] [place] [facility] [address] [id number] [place] [address] Feb, [facility] [place] [facility] [address] [id number] [place] [address] Jan, [facility] [place] [facility] [address] [id number] [place] [address] Jan, [facility] [place] [facility] [address] [id number] [place] [address] 7282 Jan, [facility] [place] [facility] [address] [id number] [place] [address] 3827 Jan, [facility] [place] [facility] [address] [id number] [place] [address] Dec, [facility] [place] [facility] [address] [id number] [place] [address] Dec, [facility] [place] [facility] [address] [id number] [place] [address] Dec, [facility] [place] [facility] [address] [id number] [place] [address] Dec, [facility] [place] [facility] [address] [id number] [place] [address]- 4474 Dec, [facility] [place] [facility] [address] [id number] [place] [address]- [address]597 Dec, [facility] [place] [facility] [address] [id number], [place] [address] Dec, [facility] [place] [facility] [address] [address] [id number] [place] [address] Dec, [facility] [place] [facility] [address] [facility] [id number][place] [address] Dec, [facility] [place] [facility] [address] [facility] [id number][place] [address] Dec, [facility] [place] [facility] [address] [id number], [place] [address] Dec, [facility] [place] [facility] [address] [id number], [place] [address] Nov, [facility] [place] [facility] [address] [id number], [place] [address] 24 Nov, 2011 [facility] [place] [facility] [address] [facility] [id number], [place] [address] 20 Nov, 2011 [facility] [place] [facility] [address] [id number], [place] [address] 19 Sep, 2011 [facility] [place] [facility] [address] [id number] [place] [address] 2546 17 Sep, 2011 [facility] [place] [facility] [address] [id number] [place] [address] 2546 16 Sep, 2011 [facility] [place] [facility] [address] [id number] [place] [address] 2546 14 Sep, 2011 [facility] [place] [facility] [address] [id number] [place] [address] 2546 13 Sep, 2011 [facility] [place] [facility] [address] [id number] [place] [address] 12 Sep, 2011 [facility] [place] [facility] [address] [id number] [place] [address] 07 Sep, 2011 [facility] [place] [facility] [address] [id number] [place] [address] 1440 06 Sep, 2011 [facility] [place] [facility] [address] [id number] [place] [address]31 06 Sep, 2011 [facility] [place] [facility] [address] [id number] [place] [address] 3817 05 Nov, 2011 [facility] [place] [facility] [address] [id number] [place] [address] 2304 29 Oct, 2011 [facility] [place] [facility] [address] [id number] [place] [address] 2545 29 Oct, 2011 [facility] [place] [facility] [address] [id number] [place] [address] 2541 Oct, [facility] [place] [facility] [address] [id number] [place] [address] 6717 28 Oct, 2011 [facility] [place] [facility] [address] [id number] [place] [address] 2810 23 Oct, 2011 [facility] [place] [facility] [address] [id number] [place] [address]26 Oct, [facility] [place] [facility] [address] [id number] [place] [address]64 Oct, [facility] [place] [facility] [address] [id number] [place] [address] 7426 Oct, [facility] [place] [facility] [address] [id number] [place] [address] 2546 Oct, [facility] [place] [facility] [address] [id number] [place] [address] 8066 Oct, [facility] [place] [facility] [address] [id number] [place] [address] 8410 Oct, [facility] [place] [facility] [address] [id number] [place] [address] Sep, [facility] [place] [facility] [address] [id number] [place] [address] 4648 Sep, [facility] [place] [facility] [address] [id number] [place] [address] 8622 Sep, [facility] [place] [facility] [address] [id number] [place] [address] 1696 Sep, [facility] [place] [facility] [address] [id number] [place] [address] 8388 Sep, [facility] [place] [facility] [address] [id number] [place] [address] 2837 Sep, [facility] [place] [facility] [address] [id number] [place] [address] Aug, [facility] [place] [facility] [address] [id number] [place] [address] July, [facility] [place] [facility] [address] [id number] [place] [address] 2426 July, [facility] [place] [facility] [address] [id number] [place] [address]2 Jun, [facility] [place] [facility] [address] [id number] [place] [address] 0481 Jun, [facility] [place] [facility] [address] [id number] [place] [address] Jun, [facility] [place] [facility] [address] [id number] [place] [address] 2395 Jun, [facility] [place] [facility] [address] [id number] [place] [address] 7167 Jun, [facility] [place] [facility] [address] [id number] [place] [address] 3251 Jun, [facility] [place] [facility] [address] [id number] [place] [address] 7634 Jun, [facility] [place] [facility] [address] [id number] [place] [address]- 5631 Jun, [facility] [place] [facility] [address] [id number] [place] [address]- 1498 Jun, [facility] [place] [facility] [address] [id number] [place] [address]- 8257 Jun, [facility] [place] [facility] [address] [id number] [place] [address]- 7643 Jun, [facility] [place] [facility] [address] [id number] [place] [address] 3524 May, [facility] [place] [facility] [address] [id number] [place] [address]- 4771 16 May, 2011 [facility] [place] [facility] [address] [id number] [place] [address] 2397 14 May, 2011 [facility] [place] [facility] [address] [id number] [place] [address]- 6285 06 May, 2011 [facility] [place] [facility] [address] [id number] [place] [address]- 5456 Apr, [facility] [place] [facility] [address] [id number] [place] [address]- 0973 Apr, [facility] [place] [facility] [address] [id number] [place] [address]- 1526 Apr, [facility] [address] [id number] [place] [address] 1896 Apr, [facility] [place] [facility] [address] [id number] [place] [address]- 1336 Apr, [facility] [place] [facility] [address] [id number] [place] [address]- 6516 Apr, [facility] [place] [facility] [address] [id number] [place] [address]- 3595 Apr, [facility] [place] [facility] [address] [id number] [place] [address]- 2317 Apr, [facility] [place] [facility] [address] [id number] [place] [address]- 8054 Mar, [facility] [place] [facility] [address] [id number] [place] [address] 8849 Mar, [facility] [address] [id number] [place] [address]- 8829 Mar, [facility] [place] [facility] [address] [id number] [place] [address]- 7217 Mar, [facility] [place] [facility] [address] [id number] [place] [address]- 6621 17 Mar, 2011 [facility] [place] [facility] [address] [id number] [place] [address]- 4338 13 Mar, 2011 [facility] [place] [facility] [address] [id number] [place] [address]- 4376 Mar, [facility] [place] [facility] [address] [id number] [place] [address]- 6027 Mar, [facility] [place] [facility] [address] [id number] [place] [address]- 8984 Mar, [facility] [place] [facility] [address] [id number] [place] [address] 4823 Mar, [facility] [address] [id number] [place] [address]- 1749 Mar, [facility] [place] [facility] [address] [id number] [place] [address]- 3365 Mar, [facility] [place] [facility] [address] [id number] [place] [address]- 3197 Mar, [facility] [place] [facility] [address] [id number] [place] [address]- 1089 Mar, [facility] [place] [facility] [address] [id number] [place] [address]- 6885 Mar, [facility] [place] [facility] [address] [id number] [place] [address]- 7065 Mar, [facility] [place] [facility] [address] [id number] [place] [address]- 4744 Feb, [facility] [place] [facility] [address] [id number], [place] [address]- 6193 Feb, [facility] [place] [facility] [address] [id number] [place] [address]- 5887 Feb, [facility] [place] [facility] [address] [id number], [place] [address]- 1641 Jan, [facility] [place] [facility] [address] [id number], [place] [address]- 0876 Jan, [facility] [place] [facility] [address] [id number], [place] [address]- 9906 Jan, [facility] [place] [facility] [address] [id number] [place] [address]- 0152 Dec, [facility] [place] [facility] [address] [id number], [place] [address]- 9730 Dec, [facility] [place] [facility] [address] [id number], [place] [address]- 2232 16 Nov, 2010 [facility] [place] [facility] [address] [facility] [id number] [place] [address]- 8660 Oct, [facility] [place] [address] [facility] [id number], [place] [address]- 9726 Oct, [facility] [place] [address] [facility] [id number], [place] [address]- 4820 Oct, [facility] [place] [address] [facility] [id number], [place] [address]- 8995 Sep, [facility] [place] [address] [facility] [id number], [place] [address]- 4702 Apr, [facility] [place] [address] [facility] [id number], [place] [address]- 7391 Feb, [facility] [place] [address] [facility] [id number], [place] [address]- 98[address] Jan, IMMUNIZATIONS No Known Immunizations SOCIAL HISTORY [...] 2/2 Benzos OD, pneumonia MRSA, MAYRA, Hypokalemia-- [facility] 12/20/2015 Hospitalization History COPD exacerbation, Asthma-[facility] 09/21/16 Hospitalization History COPD-[facility] 12/30/2016 Hospitalization History [facility] for inpatient-last around 2006 or so. Hospitalization History [facility] x2 Mar 2017 Hospitalization History Upper GI bleed at apr 2017 Hospitalization History [facility]- COPD Exacerbation, diarrhea 05/23/2017 Hospitalization History COPD exacerbation-[facility] 06/13/17
--- OUTSIDE RECORDS SUMMARY | 2017-09-18 19:43 | XMS REPORT ---
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 Active Problem Thrush B37.0 Active 37962699 Problem TMJ (sprain of temporomandibular joint) S03.4XXA Active 78186571 Problem Tobacco abuse Z72.0 Active 63896431 Problem Migraine G43.909 Active 49206198 Problem History of MRSA infection Z86.14 Active 951735082 Problem Knee pain, left M25.562 Active 07529460 Problem Obesity, unspecified obesity severity, unspecified obesity type E66.9 Active 736620533 Problem Acute bronchitis with COPD J44.0 Active 291688359523709 Problem Other emphysema J43.8 Active 03387410 Problem Chronic bronchitis, unspecified chronic bronchitis type J42 Active 61456110 Problem Migraine without aura and without status migrainosus, not intractable G43.009 Active 093266994 Problem COPD exacerbation J44.1 Active 537559378 Problem Chronic obstructive pulmonary disease with acute exacerbation J44.1 Active 154305690 Problem Chronic constipation K59.09 Active 017008955 Problem Dry mouth R68.2 Active 36194206 Problem Encounter for tobacco use cessation counseling Z71.6 Active 131632783 Problem Diabetes E11.9 Active 792159517 Problem Methamphetamine use disorder, moderate, 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 Active 32155787 Problem Intractable cyclical vomiting with nausea G43.A1 Active 12110982 Problem Viral illness B34.9 Active 18432417 Problem Left knee pain M25.562 Active 36135128 Problem Bipolar disorder, unspecified F31.9 Active 01858749 Problem Yeast vaginitis B37.3 Active 66544825 Problem Memory loss R41.3 Active 77722030 Problem Bipolar disorder with depression F31.30 Active 08108091 Problem Non morbid obesity due to excess calories E66.09 Active 984765598 Problem Bipolar disorder, current episode depressed, severe, without psychotic features F31.4 Active 66217387 Problem Generalized anxiety disorder F41.1 Active 15803560 ALLERGIES Substance Reaction Event Type Date Status amitriptyline OD on medication, causes parasonias Non Drug Allergy Mar, Active Buspar 10 Mg Tablet made legs shaky Non Drug Allergy Mar, Active Benzodiazepines NARC ALERT Broke narc contract Non Drug Allergy Mar Active Narcotic NARC ALERT Broke Narc contract Non Drug Allergy Mar, Active ENCOUNTERS Encounter Location Date Diagnosis [facility] [id number] [place] [address] 92848- 0707 Aug, Chronic obstructive pulmonary disease with acute exacerbation J44.1 [facility] [id number] [place] [address] 75971- 5427 Aug, [facility] [id number] [place] [address] 04450- 5619 Aug, [facility] [id number] [place] [address] 79494- 6859 July, [facility] [id number] [place] [address] 67294- 6384 July, [facility] [id number] [place] [address] 73608- 8768 July, Diabetes E11.9 and Chronic obstructive pulmonary disease with acute exacerbation J44.1 [facility] [id number] [place] [address] 21262- 6964 Jun, Chronic obstructive pulmonary disease with acute exacerbation J44.1 ; Diabetes E11.9 and Tobacco abuse Z72.0 [facility] [id number] [place] [address] 90945- 5726 Jun, [facility] [address] [address] 7437 Jun, [facility] [id number] [place] [address] 01327- 8001 May, [facility] [address] [place] [address] 60068- 8851 May, [facility] [id number] [place] [address] 27267 -5956 17 May, 2017 [facility] [id number] [place] [address] 05504- 5875 16 May, 2017 [facility] [id number] [place] [address] 84681- 1068 15 May, 2017 [facility] [id number] [place] [address] 04085- 8637 14 May, 2017 Diarrhea, unspecified type R19.7 and Intractable cyclical vomiting with nausea G43.A1 [facility] [address] [place] [address] 23275- 5579 12 May, 2017 [facility] [id number] [place] [address] 91285- 2683 05 May, 2017 [facility] [address] [place] [address] 78144- 1989 28 Apr, 2017 COPD exacerbation J44.1 ; Esophageal candidiasis B37.81 ; Other acute gastritis with hemorrhage K29.01 and Acute posthemorrhagic anemia D62 [facility] [address] [place] [address] 32879- 8328 Apr, Viral illness B34.9 and COPD exacerbation J44.1 [facility] [address] [address] Apr, Shortness of breath R06.02 and Pneumonia of both lower lobes due to infectious organism J18.9 [facility] [id number] [place] [address] 17559 -2717 Mar, COPD with acute exacerbation J44.1 [facility] [id number] [place] [address] 75115- 5993 Mar, Chronic obstructive pulmonary disease with acute exacerbation J44.1 and Diabetes E11.9 [facility] [id number] [place] [address] 96650- 1821 Mar, [facility] [address] 28401- 9005 Mar, [facility] [address] 51544 -0007 Mar, COPD exacerbation J44.1 [facility] [id number] [place] [address] 57066- 1753 Mar, [facility] [address] 72597- 9044 Mar, Migraine G43.909 ; Hypokalemia E87.6 and Type 2 diabetes mellitus without complications E11.9 [facility] [id number] [place] [address] 60107- 2265 Feb, [facility] [id number] [place] [address] 61567- 5662 Feb, [facility] [id number] [place] [address] 20457- 2832 Feb, Methamphetamine use disorder, moderate, 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 ; Major depressive disorder, recurrent, moderate F33.1 ; Anxiety disorder, unspecified F41.9 and Tobacco abuse Z72.0 [facility] [id number] [place] [address] 27936- 1760 Jan, Major depressive disorder, recurrent, moderate F33.1 [facility] [id number] [place] [address] 41370- 9538 Jan, [facility] [address] 29392- 6008 14 Jan, 2017 [facility] [id number] [place] [address] 94577- 2867 Jan, Major depressive disorder, recurrent, moderate F33.1 [facility] [id number] [place] [address] 58758- 1101 Jan, Major depressive disorder, recurrent, moderate F33.1 ; Anxiety disorder, unspecified F41.9 ; Methamphetamine use disorder, moderate, 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 and Tobacco abuse Z72.0 [facility] [id number] [place] [address] 25647- 8355 07 Jan, 2017 [facility] [id number] [place] [address] 86497- 5654 Jan, Chronic obstructive pulmonary disease with acute exacerbation J44.1 and Diabetes E11.[address] 05094- 8463 Jan, [facility] [id number] [place] [address] 02305- 9113 Jan, [facility] [id number] [place] [address] 57967- 0698 Dec, Acute respiratory failure with hypoxia J96.01 ; Chronic bronchitis, unspecified chronic bronchitis type J42 and Tobacco use Z72.0 [facility] [id number] [place] [address] 08940- 7726 Dec, [facility] [id number] [place] [address] [phone] Nov, Dental caries K02.9 and Dental examination Z01.20 [facility] [id number] [place] [address] 62627- 7071 05 Nov, 2016 Major depressive disorder, recurrent, moderate F33.1 ; Anxiety disorder, unspecified F41.9 and 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 [facility] [address] [id number] Oct, Dental examination Z01.20 [facility] [address] [address]- 2524 Oct, [facility] [id number] [place] [address] 07634- 7840 Oct, Diabetes E11.9 and Thrush B37.0 [facility] [id number] [place] [address] 46737- 6732 Oct, [facility] [id number] [place] [address] 60190- 8233 Oct, [facility] [id number] [place] [address] 44594- 7659 Oct, [facility] [address] [place] [address] 61947- 1962 Sep, Major depressive disorder, recurrent, moderate F33.1 ; Anxiety disorder, unspecified F41.9 and Bipolar disorder, unspecified F31.9 [facility] [address] [place] [address] 93482- 0090 Sep, Acute exacerbation of chronic obstructive pulmonary disease (COPD) J44.1 and Migraine G43.909 [facility] [address] [address]- 6668 Sep, [facility] [id number] [place] [address] [phone] Sep, [facility] [address] [place] [address] 31003- 7443 Sep, Acute exacerbation of chronic obstructive pulmonary disease (COPD) J44.1 [facility] [id number] [place] [address] 75589 -6803 Sep, Acute exacerbation of chronic obstructive pulmonary disease (COPD) J44.1 [facility] [address] [address]- 8881 Aug, [facility] [address] [address]- 9529 20 Aug, 2016 Major depressive disorder, recurrent, moderate F33.1 ; Anxiety disorder, unspecified F41.9 and 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 [facility] [id number] [place] [address] 12910- 8077 19 Aug, 2016 Wheezing R06.2 ; Non morbid obesity due to excess calories E66.09 ; Migraine without aura and without status migrainosus, not intractable G43.009 and Tobacco abuse Z72.0 [facility] [address] [place] [address] [id number] 14 Aug, 2016 Encounter for dental examination Z01.20 [facility] [id number] [place] [address] 72122- 0831 02 Aug, 2016 Major depressive disorder, recurrent, moderate F33.1 ; Anxiety disorder, unspecified F41.9 and Other stimulant dependence with unspecified stimulant-induced disorder 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 [facility] [id number] [place] [address] 10419- 2403 July, [facility] [id number] [place] [address] 02922- 3563 18 Jul, 2016 [facility] [id number] [place] [address] 33144- 0882 July, [facility] [id number] [place] [address] 53681- 2057 July, Diabetes E11.9 [facility] [id number] [place] [address] 98303- 4123 Jun, Major depressive disorder, recurrent, moderate F33.1 [facility] [id number] [place] [address] 88674- 1361 Jun, Major depressive disorder, recurrent, moderate F33.1 ; 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 ; Generalized anxiety disorder F41.1 and Bipolar disorder, unspecified F31.9 [facility] [address] [place] [address]- 4096 Jun, Diabetes E11.9 ; Migraine G43.909 ; Thrush B37.0 and Wheezing R06.2 [facility] [id number] [place] [address] [id number] Jun, Dental examination Z01.20 [facility] [address] 14670- 2441 Jun, [facility] [address] 177108- 4379 Jun, Major depressive disorder, recurrent, moderate F33.1 ; Anxiety disorder, unspecified F41.9 and Other stimulant dependence with unspecified stimulant-induced disorder F15.29 [facility] [id number] [place] [address] 15978- 2336 Jun, [facility] [address] 70840- 7063 Jun, Wheezing R06.2 [facility] [id number] [place] [address] [id number] Jun, Dental caries K02.9 [facility] [id number] [place] [address] 74019- 2599 Jun, Major depressive disorder, recurrent, moderate F33.1 ; Anxiety disorder, unspecified F41.9 and Other stimulant dependence with unspecified stimulant-induced disorder 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 [facility] [id number] [place] [address] 12964- 8371 Jun, RLQ abdominal pain R10.31 ; Diabetes E11.9 ; Obesity, unspecified obesity severity, unspecified obesity type E66.9 ; Wheezing R06.2 and Abnormal urinalysis R82.90 [facility] [id number] [place] [address] 3012 May, [facility] [address] 70678- 2647 May, Well woman exam Z01.419 ; Breast cancer screening Z12.39 ; Cervical cancer screening Z12.4 ; Urinary frequency R35.0 ; Edema, unspecified type R60.9 and Chronic constipation K59.09 [facility] [address] [place] [address] 03768- 1793 08 May, 2016 Major depressive disorder, recurrent, moderate F33.1 ; Anxiety disorder, unspecified F41.9 and 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 [facility] [address] [place] [address] [id number] May, Dental examination Z01.20 [facility] [id number] [place] [address] 59912- 1340 May, [facility] [id number] [place] [address] 39294- 0201 May, [facility] [id number] [place] [address] 48546- 2216 May, Chronic constipation K59.09 [facility] [id number] [place] [address] 64980- 6115 Apr, [facility] [id number] [place] [address] 28688- 6187 Apr, Major depressive disorder, recurrent, moderate F33.1 ; Anxiety disorder, unspecified F41.9 and 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 [facility] [address] [place] [address] 66492- 0347 Apr, [facility] [id number] [place] [address] 76056- 1109 Mar, Major depressive disorder, recurrent, moderate F33.1 [facility] [address] [place] [address] 91293- 1886 Mar, Major depressive disorder, recurrent, moderate F33.1 ; Generalized anxiety disorder F41.1 and Bipolar I disorder, most recent episode depressed with anxious distress F31.30 [facility] [id number] [place] [address] 75536- 5195 17 Mar, 2016 Diabetes E11.9 ; Non morbid obesity due to excess calories E66.09 ; Breast cancer screening Z12.39 and Encounter for immunization Z23 [facility] [id number] [place] [address] 83194- 0098 17 Mar, 2016 Major depressive disorder, recurrent, moderate F33.1 ; Anxiety disorder, unspecified F41.9 and 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 [facility] [id number] [place] [address] 25566- 3884 Mar, [facility] [address] 14025- 0842 Feb, Major depressive disorder, recurrent, moderate F33.1 ; Anxiety disorder, unspecified F41.9 and 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 [facility] [address] 53979- 0234 Feb, [facility] [id number] [place] [address] 41667- 3315 Feb, [facility] [id number] [place] [address] 62695- 8846 Jan, Major depressive disorder, recurrent, moderate F33.1 ; Generalized anxiety disorder F41.1 and Bipolar disorder, current episode depressed, severe, without psychotic features F31.4 [facility] [id number] [place] [address] 13500- 7982 Jan, Major depressive disorder, recurrent, moderate F33.1 ; Anxiety disorder, unspecified F41.9 and 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 [facility] [id number] [place] [address] 70019- 0144 16 Jan, 2016 Bronchitis J40 [facility] [id number] [place] [address] 74923- 8538 Jan, [facility] [address] [place] [address]- 8301 Jan, [facility] [address] [address]- 6388 Jan, Elbow injury, right, initial encounter S59.901A ; Multiple contusions T14.8 and Cervical strain, acute, initial encounter S16.1XXA [facility] [address] [place] [address] 53206- 4892 Dec, Major depressive disorder, recurrent, moderate F33.1 ; Generalized anxiety disorder F41.1 and Bipolar disorder with depression F31.30 [facility] [address] [address]- 3019 Dec, [facility] [address] [place] [address] 40385- 6244 Dec, [facility] [address] [place] [address] 16760- 2829 Dec, [facility] [address] [address]- 1710 Dec, [facility] [address] [address]- 5853 Dec, Yeast infection B37.9 [facility] [id number] [address]- 4026 Dec, Pneumonia of both lungs due to methicillin resistant Staphylococcus aureus (MRSA), unspecified part of lung J15.212 and Benzodiazepine overdose, accidental or unintentional, subsequent encounter T42.4X1D [facility] [address] [address]- 3312 Dec, [facility] [address] [place] [address] 58164- 3385 Dec, [facility] [id number] [address]- 2751 07 Dec, 2015 Knee pain, left M25.562 and Edema, unspecified type R60.9 [facility] [address] [place] [address] 93419- 2513 Dec, [facility] [id number] [place] [address]- 5771 Dec, Anxiety disorder, unspecified F41.9 and Bipolar disorder, unspecified F31.9 [facility] [id number] [place] [address] 94732- 2764 Nov, Major depressive disorder, recurrent, moderate F33.1 ; Anxiety disorder, unspecified F41.9 and 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 [facility] [id number] [place] [address] 71422- 5145 Nov, [facility] [id number] [place] [address] 99406- 5003 Nov, Migraine without aura and without status migrainosus, not intractable G43.009 [facility] [id number] [place] [address] 82005- 5567 Nov, Migraine G43.909 [facility] [id number] [place] [address] 59560- 2022 Nov, [facility] [id number] [place] [address] 98686- 8960 Nov, Major depressive disorder, recurrent, moderate F33.1 ; Anxiety disorder, unspecified F41.9 and 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 [facility] [id number] [place] [address] 51983- 2271 Oct, Chronic constipation K59.09 and Obesity, unspecified obesity severity, unspecified obesity type E66.9 [facility] [id number] [place] [address] 43237- 7337 Oct, Obesity, unspecified obesity severity, unspecified obesity type E66.9 ; Chronic constipation K59.09 and Anxiety disorder, unspecified F41.9 [facility] [address] [place] [address]- 5770 Oct, [facility] [id number] [place] [address] 98865- 9598 Sep, Diabetes E11.9 ; Edema, unspecified type R60.9 ; Varicose vein of leg I83.90 and Obesity, unspecified obesity severity, unspecified obesity type E66.9 [facility] [id number] [place] [address] 88987- 6397 Sep, Edema, unspecified type R60.9 ; Diabetes E11.9 and Knee pain , left M25.562 [facility] [id number] [place] [address] 04729- 9968 Sep, [facility] [id number] [place] [address] 57444- 3236 Sep, [facility] [id number] [place] [address] 81384- 3810 Sep, Major depressive disorder, recurrent, moderate F33.1 ; Generalized anxiety disorder F41.1 and Bipolar disorder, unspecified F31.9 [facility] [id number] [place] [address] 52095- 1369 Aug, Chondromalacia of left knee M94.262 [facility] [id number] [place] [address] 61976- 6133 Aug, Major depressive disorder, recurrent, moderate F33.1 ; Anxiety disorder, unspecified F41.9 and 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 [facility] [id number] [place] [address] 19392- 1360 Aug, [facility] [id number] [place] [address] 09975- 8260 Aug, Osteoarthritis of left knee M17.9 [facility] [id number] [place] [address] 35022- 0661 Aug, [facility] [id number] [place] [address] 54009- 1164 July, Major depressive disorder, recurrent, moderate F33.1 ; Anxiety disorder, unspecified F41.9 and 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 [facility] [id number] [place] [address] 14350- 9965 July, [facility] [id number] [place] [address] 38038- 7741 July, Chronic constipation K59.09 [facility] [id number] [place] [address] 51795- 6714 Jun, [facility] [id number] [place] [address] 92957- 1708 Jun, [facility] [id number] [place] [address] 74309- 6542 Jun, Osteoarthritis of left knee M17.9 [facility] [id number] [place] [address] 94383- 5444 Jun, [facility] [id number] [place] [address] 28525- 9224 Jun, Generalized anxiety disorder F41.1 ; Bipolar disorder, unspecified F31.9 and Major depressive disorder, recurrent, moderate F33.1 [facility] [id number] [place] [address] 84064- 9722 Jun, Migraine G43.909 [facility] [id number] [place] [address] 92033- 6010 Jun, Left knee pain M25.562 ; Chronic constipation K59.09 ; Dry mouth R68.2 ; Yeast vaginitis B37.3 and Memory loss R41.3 [facility] [address] [place] [address] 94803- 9094 05 Jun, 2015 [facility] [id number] [place] [address] 75191- 7541 May, [facility] [address] [address]- 5403 May, [facility] [id number] [place] [address] 35151- 2904 May, [facility] [id number] [place] [address] 70590- 6278 May, [facility] [id number] [place] [address] 44065- 0785 May, Acute bronchitis with COPD J44.0 ; Knee pain, left M25.562 and Encounter for tobacco use cessation counseling Z71.6 [facility] [id number] [place] [address] 33720- 5569 May, [facility] [id number] [place] [address] 99950- 3289 Apr, Diabetes E11.9 ; TMJ (sprain of temporomandibular joint) S03.4XXA ; Tobacco abuse Z72.0 ; Migraine G43.909 and Anxiety F41.9 [facility] [id number] [place] [address] 05754- 6920 Apr, Generalized anxiety disorder F41.1 and Bipolar disorder, unspecified F31.9 [id number] [place] [address] 59104- 6756 Apr, Major depressive disorder, recurrent, moderate F33.1 ; Anxiety disorder, unspecified F41.9 and 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 [facility] [id number] [place] [address] 20433- 2013 Apr, [facility] [id number] [place] [address] 04602- 0977 Mar, [facility] [id number] [place] [address] 02416- 7256 Feb, [facility] [id number] [place] [address] 30322- 7721 Feb, Major depressive disorder, recurrent, moderate F33.1 ; Anxiety disorder, unspecified F41.9 and 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 [place] [id number] [place] [address] 14979- 5431 Feb, [place] [id number] [place] [address] 34469- 4786 Feb, Generalized anxiety disorder F41.1 and Bipolar disorder, unspecified F31.9 [place] [id number] [place] [address] 58079- 7812 Jan, [place] [address] 44686- 2094 Jan, [place] [id number] [place] [address] 72307- 7768 Jan, Bipolar disorder, unspecified F31.9 and Generalized anxiety disorder F41.1 [place] [id number] [place] [address] 31471- 0521 Dec, [id number] [place] [address] 50976- 4272 Dec, Bipolar disorder, unspecified F31.9 and Generalized anxiety disorder F41.1 [id number] [place] [address] 59241- 7785 Dec, Generalized anxiety disorder F41.1 and Major depressive disorder, recurrent, moderate F33.1 [place] [id number] [place] [address] 67110- 7581 Oct, Headache 784.0 ; Cough 786.2 ; Vomiting and diarrhea 787.03 and Dysuria 788.1 [place] [id number] [place] [address] 59163- 5421 Aug, [address] [id number] [place] [address] 58836- 9781 Aug, Headache 784.0 and Shortness of breath 786.05 [facility] [place] [facility] [address] [id number] [place] [address]- 8470 Aug, [facility] [place] [facility] [address] [facility] [id number] [place] [address]- 2847 18 Aug, 2014 Migraine 346.90 [facility] [place] [facility] [address] [facility] [id number] [place] [address]- 7758 14 Jun, 2014 [facility] [place] [facility] [address] [id number] [place] [address]- 8349 Jun, [facility] [place] [facility] [address] [facility] [id number] [place] [address]- 5995 May, [facility] [place] [facility] [address] [facility] [id number] [place] [address]- 3434 May, [facility] [place] [facility] [address] [id number] [place] [address]- 5452 May, [facility] [place] [facility] [address] [facility] [id number] [place] [address]- 7427 May, [facility] [place] [facility] [address] [facility] [id number] [place] [address]- 1257 May, [facility] [place] [facility] [address] [facility] [id number] [place] [address]- 7340 May, [facility] [place] [facility] [address] [facility] [id number] [place] [address]- 1929 Apr, [facility] [place] [facility] [address] [facility] [id number] [place] [address]- 5983 Apr, [facility] [place] [facility] [address] [facility] [id number] [place] [address]- 7910 Apr, [facility] [place] [facility] [address] [facility] [id number] [place] [address]- 2860 Apr, [facility] [place] [facility] [address] [id number] [place] [address]- 7871 Apr, [facility] [place] [facility] [address] [facility] [id number] [place] [address]- 0286 Mar, [facility] [address] [id number] [place] [address]- 5789 Mar, [facility] [address] [id number] [place] [address]- 5782 Mar, [facility] [address] [id number] [place] [address]- 6784 Mar, [facility] [address] [id number] [place] [address]- 7445 Feb, [facility] [address] [id number] [place] [address]- 4533 Feb, [facility] [address] [id number] [place] [address]- 3478 Feb, [facility] [address] [id number] [place] [address]- 3562 Feb, [facility] [address] [id number] [place] [address]- 0410 Feb, [facility] [address] [id number] [place] [address]- 2323 Feb, [facility] [address] [facility] [id number] [place] [address]- 7861 Feb, [facility] [address] [id number] [place] [address]- 9164 Feb, [facility] [address] [id number] [place] [address]- 2514 Feb, [facility] [place] [facility] [address] [id number] [place] [address]- 9471 Feb, [facility] [place] [facility] [address] [id number] [place] [address]- 4548 Feb, [facility] [address] [id number] [place] 5804 Feb, [facility] [place] [facility] [address] [id number] [place] [address]- 1743 Jan, [facility] [place] [facility] [address] [id number] [place] [address]- 1782 Jan, [facility] [place] [facility] [address] [id number] [place] [address]- 5436 Dec, [facility] [place] [facility] [address] [id number] [place] [address]- 6639 Dec, [facility] [place] [facility] [address] [id number] [place] [address]- 8611 Dec, [facility] [place] [facility] [address] [id number] [place] [address]- 7792 Dec, [facility] [place] [facility] [address] [id number] [place] [address]- 2006 Dec, [facility] [place] [facility] [address] [id number] [place] [address]- 2946 Dec, [facility] [place] [facility] [address] [id number] [place] [address]- 6433 Sep, [facility] [place] [facility] [address] [id number] [place] [address]- 1106 Sep, [facility] [place] [facility] [address] [id number] [place] [address]- 2149 Sep, [facility] [place] [facility] [address] [id number] [place] [address]- 0774 Sep, [facility] [place] [facility] [address] [id number] [place] [address]- 7123 Sep, [facility] [place] [facility] [address] [id number] [place] [address]- 7990 Sep, [facility] [place] [facility] [address] [id number] [place] [address]- 7531 Sep, [facility] [place] [facility] [address] [id number] [place] [address]- 9924 Sep, [facility] [place] [facility] [address] [id number] [place] [address]- 1595 Sep, [facility] [place] [facility] [address] [id number] [place] [address]- 7250 Sep, [facility] [place] [facility] [address] [id number] [place] [address]- 7738 24 Aug, 2013 [facility] [place] [facility] [address] [id number] [place] [address]- 0607 Aug, [facility] [place] [facility] [address] [id number] [place] [address]- 2461 Aug, [facility] [place] [facility] [address] [id number] [place] [address]- 5779 Aug, [facility] [place] [facility] [address] [id number] [place] [address]- 5041 Aug, [facility] [place] [facility] [address] [id number] [place] [address]- 1391 Aug, [facility] [place] [facility] [address] [id number] [place] [address]- 5542 Aug, [facility] [place] [facility] [address] [id number] [place] [address]- 9979 Aug, [facility] [place] [facility] [address] [id number] [place] [address]- 9831 Aug, [facility] [place] [facility] [address] [id number] [place] [address]- 6789 Aug, [facility] [place] [facility] [address] [id number] [place] [address]- 6976 Aug, [facility] [place] [facility] [address] [id number] [place] [address]- 2321 Aug, [facility] [place] [facility] [address] [id number] [place] [address]- 4545 Aug, [facility] [place] [facility] [address] [id number] [place] [address]- 2975 July, [facility] [place] [facility] [address] [id number] [place] [address]- 6683 July, [facility] [place] [facility] [address] [id number] [place] [address]- 1903 July, [facility] [place] [facility] [address] [id number] [place] [address]- 0375 July, [facility] [place] [facility] [address] [id number] [place] [address]- 4492 July, [facility] [place] [facility] [address] [id number] [place] [address]- 0387 July, [facility] [place] [facility] [address] [id number] [place] 2553 July, [facility] [place] [facility] [address] [id number] [place] [address]- 5143 Jun, [facility] [place] [facility] [address] [id number] [place] [address]- 0004 Jun, [facility] [place] [facility] [address] [id number] [place] [address]- 8388 Jun, [facility] [place] [facility] [address] [id number] [place] [address]- 2901 Jun, [facility] [place] [facility] [address] [id number] [place] [address]- 5480 Jun, [facility] [place] [facility] [address] [id number] [place] 4319 Jun, [facility] [place] [facility] [address] [id number] [place] 0429 Jun, [facility] [place] [facility] [address] [id number] [place] [address]- 2826 May, [facility] [place] [facility] [address] [id number] [place] [address]- 6233 17 May, 2013 [facility] [place] [facility] [address] [id number] [place] [address]- 1084 14 May, 2013 [facility] [place] [facility] [address] [id number] [place] [address]- 3918 14 May, 2013 [facility] [place] [facility] [address] [id number] [place] [address]- 6125 13 May, 2013 [facility] [place] [facility] [address] [id number] [place] [address]- 0155 13 May, 2013 [facility] [place] [facility] [address] [id number] [place] [address]- 4432 10 May, 2013 [facility] [place] [facility] [address] [id number] [place] [address]- 5130 10 May, 2013 [facility] [place] [facility] [address] [facility] [id number] [place] [address]- 0268 07 May, 2013 [facility] [place] [facility] [address] [id number] [place] [address]- 6325 26 Apr, 2013 [facility] [place] [facility] [address] [id number] [place] [address]- 6150 26 Apr, 2013 [facility] [place] [facility] [address] [facility] [id number] [place] [address]- 5377 18 Apr, 2013 [facility] [place] [facility] [address] [facility] [id number] [place] [address]- 7549 15 Apr, 2013 [facility] [place] [facility] [address] [id number] [place] [address]- 7550 15 Apr, 2013 [facility] [place] [facility] [address] [id number] [place] [address]- 2118 11 Apr, 2013 [facility] [place] [facility] [address] [facility] [id number] [place] [address]- 2821 05 Apr, 2013 [facility] [place] [facility] [address] [facility] [id number] [place] [address]- 7880 05 Apr, 2013 [facility] [place] [facility] [address] [id number] [place] [address]- 7089 05 Apr, 2013 [facility] [place] [facility] [address] [id number] [place] [address]- 8204 Apr, [facility] [place] [facility] [address] [id number] [place] [address]- 6686 Mar, [facility] [place] [facility] [address] [id number] [place] [address]- 7652 Mar, [facility] [place] [facility] [address] [id number] [place] [address]- 7450 Mar, [facility] [place] [facility] [address] [id number] [place] [address]- 4488 Mar, [facility] [place] [facility] [address] [id number] [place] [address]- 3338 Mar, [facility] [place] [facility] [address] [id number] [place] [address]- 5566 Mar, [facility] [place] [facility] [address] [id number] [place] [address]- 1959 Mar, [facility] [place] [facility] [address] [id number] [place] [address]- 1715 Mar, [facility] [place] [facility] [address] [id number] [place] [address]- 0149 Feb, [facility] [place] [facility] [address] [id number] [place] [address]- 4826 Feb, [facility] [place] [facility] [address] [id number] [place] [address]- 8295 Jan, [facility] [place] [facility] [address] [id number] [place] [address]- 4158 Jan, [facility] [place] [facility] [address] [id number] [place] [address]- 6728 15 Jan, 2013 [facility] [place] [facility] [address] [id number] [place] [address]- 2582 Jan, [facility] [place] [facility] [address] [id number] [place] [address]- 3407 Jan, [facility] [place] [facility] [address] [id number] [place] [address]- 9504 Jan, [facility] [place] [facility] [address] [facility] [id number] [place] [address]- 9285 Jan, [facility] [place] [facility] [address] [id number] [place] [address]- 5083 Jan, [facility] [place] [facility] [address] [id number] [place] [address]- 4853 Dec, [facility] [place] [facility] [address] [id number] [place] [address]- 1390 Dec, [facility] [place] [facility] [address] [id number] [place] [address]- 7383 Dec, [facility] [place] [facility] [address] [id number] [place] [address]- 6017 20 Nov, 2012 [facility] [place] [facility] [address] [id number] [place] [address]- 6078 13 Nov, 2012 [facility] [place] [facility] [address] [id number] [place] [address]- 2527 12 Nov, 2012 [facility] [place] [facility] [address] [id number] [place] [address]- 5943 Nov, [facility] [place] [facility] [address] [id number] [place] [address]- 2548 Nov, [facility] [place] [facility] [address] [id number] [place] [address]- 0331 Nov, [facility] [place] [facility] [address] [id number] [place] [address]- 3498 Oct, [facility] [place] [facility] [address] [id number] [place] [address]- 9507 Oct, [facility] [place] [facility] [address] [id number] [place] [address]- 4886 Sep, [facility] [address] [id number] [place] [address]- 4795 Sep, [facility] [place] [facility] [address] [id number] [place] [address]- 5970 Sep, [facility] [address] [id number] [place] [address]- 7963 Sep, [facility] [place] [facility] [address] [id number] [place] [address]- 7689 Sep, [facility] [place] [facility] [address] [id number] [place] [address]- 3170 Sep, [facility] [place] [facility] [address] [id number] [place] [address]- 0648 Sep, [facility] [address] [id number] [place] [address]- 3593 Aug, [facility] [address] [id number] [place] [address]- 0142 Aug, [facility] [place] [facility] [address] [id number] [place] [address]- 7774 Aug, [facility] [address] [id number] [place] [address]- 8719 Aug, [facility] [place] [facility] [address] [id number] [place] [address]- 1784 Aug, [facility] [place] [facility] [address] [id number] [place] [address]- 7819 Aug, [facility] [place] [facility] [address] [id number] [place] [address]- 8539 July, [facility] [place] [facility] [address] [id number] [place] [address]- 8109 July, [facility] [place] [facility] [address] [id number] [place] [address]- 2446 July, [facility] [address] [id number] [place] [address]- 1689 July, [facility] [address] [id number] [place] [address]- 7801 July, [facility] [address] [id number] [place] [address]- 6726 July, [facility] [address] [id number] [place] [address]- 7641 Jun, [facility] [address] [id number] [place] [address]- 6617 Jun, [facility] [address] [id number] [place] [address]- 7506 Jun, [facility] [address] [id number] [place] [address]- 3850 Jun, [facility] [address] [id number] [place] [address]- 4842 Jun, [facility] [address] [id number] [place] [address]- 8743 Jun, [facility] [address] [id number] [place] [address]- 2744 Jun, [facility] [address] [id number] [place] [address]- 6373 May, [facility] [address] [id number] [place] [address]- 2861 May, [facility] [address] [id number] [place] [address]- 0230 Apr, [facility] [place] [facility] [address] [id number] [place] [address]- 1361 Apr, [facility] [place] [facility] [address] [id number] [place] [address]- 4309 Apr, [facility] [address] [id number] [place] [address]- 0686 18 Apr, 2012 [facility] [address] [id number] [place] [address]- 6416 12 Apr, 2012 [facility] [address] [id number] [place] [address] 2546 08 Apr, 2012 [facility] [address] [id number] [place] [address] 2546 07 Apr, 2012 [facility] [address] [id number] [place] [address] 2548 07 Apr, 2012 [facility] [address] [id number] [place] [address] 06 Apr, 2012 [facility] [address] [id number] [place] [address] 06 Apr, 2012 [facility] [address] [id number] [place] [address] 03 Apr, 2012 [facility] [address] [id number] [place] [address] 30 Mar, 2012 [facility] [address] [id number] [place] [address] Mar, [facility] [address] [facility] [id number] [place] [address] Mar, [facility] [address] [id number] [place] [address] 2548 Mar, [facility] [address] [id number] [place] [address] Mar, [facility] [place] [facility] [address] [id number] [place] [address] Mar, [facility] [place] [facility] [address] [id number] [place] [address] 15 Mar, 2012 [facility] [address] [id number] [place] [address] 15 Mar, 2012 [facility] [address] [id number] [place] [address] Mar, [facility] [place] [facility] [address] [id number] [place] [address] Mar, [facility] [place] [facility] [address] [id number] [place] [address] Mar, [facility] [place] [facility] [address] [id number] [place] [address] Mar, [facility] [place] [facility] [address] [id number] [place] [address] Mar, [facility] [place] [facility] [address] [id number] [place] [address] Feb, [facility] [place] [facility] [address] [id number] [place] [address] Feb, [facility] [place] [facility] [address] [id number] [place] [address] 18 Feb, 2012 [facility] [place] [facility] [address] [id number] [place] [address] Feb, [facility] [place] [facility] [address] [id number] [place] [address] Feb, [facility] [place] [facility] [address] [id number] [place] [address] 133[address] Feb, [facility] [place] [facility] [address] [id number] [place] [address] 10 Feb, 2012 [facility] [place] [facility] [address] [id number] [place] [address] 10 Feb, 2012 [facility] [place] [facility] [address] [id number] [place] [address] 59[address] Feb, [facility] [place] [facility] [address] [id number] [place] [address] 10 Feb, 2012 [facility] [place] [facility] [address] [id number] [place] [address] Feb, [facility] [place] [facility] [address] [id number] [place] [address] Feb, [facility] [place] [facility] [address] [facility] [id number] [place] [address] Feb, [facility] [place] [facility] [address] [facility] [id number] [place] [address] Feb, [facility] [place] [facility] [address] [facility] [id number] [place] [address] 78[address] Feb, [facility] [place] [facility] [address] [facility] [id number] [place] [address], [place] [address] Jan, [facility] [place] [facility] [address] [facility] [id number] [place] [address] Jan, [facility] [place] [facility] [id number] [place] [address] Jan, [facility] [place] [facility] [address] [facility] [id number] [place] [address] Jan, [facility] [place] [facility] [address] [id number] [place] [address] Dec, [facility] [place] [facility] [address] [id number] [place] [address] Dec, [facility] [place] [facility] [address] [facility] [id number] [place] [address] Dec, [facility] [place] [facility] [address] [facility] [id number] [place] [address] Dec, [facility] [place] [facility] [address] [facility] [id number] [place] [address] Dec, [facility] [place] [facility] [address] [facility] [id number] [place] [address] 245[address] Dec, [facility] [place] [facility] [id number] [place] [address] Dec, [facility] [place] [facility] [address] [id number] [place] [address]- [address]165 16 Dec, 2011 [facility] [place] [facility] [address] [id number] [place] [address] 96[address] 07 Dec, 2011 [facility] [place] [facility] [address] [id number] [place] [address] 2546 04 Dec, 2011 [facility] [place] [facility] [address] [id number] [place] [address] 2546 03 Dec, 2011 [facility] [place] [facility] [address] [id number] [place] [address] 2540 25 Sep, 2011 [facility] [place] [facility] [address] [id number] [place] [address] 8876 24 Sep, 2011 [facility] [place] [facility] [address] [id number] [place] [address] 4642 20 Sep, 2011 [facility] [place] [facility] [address] [id number] [place] [address]- 3444 19 Sep, 2011 [facility] [place] [facility] [address] [id number] [place] [address] 2540 17 Sep, 2011 [facility] [place] [facility] [address] [id number] [place] [address]- 2545 16 Sep, 2011 [facility] [place] [facility] [address] [id number] [place] [address] 2549 14 Sep, 2011 [facility] [place] [facility] [address] [id number] [place] [address] 2543 13 Sep, 2011 [facility] [place] [facility] [address] [id number] [place] [address] 2548 12 Sep, 2011 [facility] [place] [facility] [address] [id number] [place] [address] 2546 07 Sep, 2011 [facility] [place] [facility] [address] [id number] [place] [address] 2546 06 Sep, 2011 [facility] [place] [facility] [address] [id number] [place] [address] Nov, [facility] [place] [facility] [address] [id number] [place] [address] Nov, [facility] [place] [facility] [address] [id number] [place] [address] Oct, [facility] [place] [facility] [address] [id number] [place] [address] Oct, [facility] [place] [facility] [address] [id number] [place] [address] Oct, [facility] [place] [facility] [address] [id number] [place] [address] Oct, [facility] [place] [facility] [address] [id number] [place] [address] Oct, [facility] [place] [facility] [address] [id number] [place] [address]907 Oct, [facility] [place] [facility] [address] [id number] [place] [address] Oct, [facility] [place] [facility] [address] [id number] [place] [address]187 Oct, [facility] [place] [facility] [address] [id number] [place] [address] Oct, [facility] [place] [facility] [address] [id number] [place] [address]298 Oct, [facility] [place] [facility] [address] [id number] [place] [address] 59[address] Oct, [facility] [place] [facility] [address] [id number] [place] [address] Sep, [facility] [place] [facility] [address] [id number] [place] [address] Sep, [facility] [place] [facility] [address] [id number] [place] [address]365 Sep, [facility] [place] [facility] [address] [id number] [place] [address] 6878 Sep, [facility] [address] [id number] [place] [address] Sep, [facility] [place] [facility] [address] [id number] [place] [address] Sep, [facility] [address] [id number] [place] [address] 7978 Aug, [facility] [place] [facility] [address] [id number] [place] [address] July, [facility] [place] [facility] [address] [id number] [place] [address] July, [facility] [place] [facility] [address] [id number] [place] [address]183 Jun, [facility] [address] [id number] [place] [address] 8736 Jun, [facility] [place] [facility] [address] [id number] [place] [address]013 Jun, [facility] [place] [facility] [address] [id number] [place] [address]3 Jun, [facility] [place] [facility] [address] [id number] [place] [address]80 Jun, [facility] [place] [facility] [address] [id number] [place] [address] 8206 Jun, [facility] [place] [facility] [address] [id number] [place] [address] 7444 Jun, [facility] [place] [facility] [address] [id number] [place] [address] Jun, [facility] [place] [facility] [address] [id number] [place] [address] Jun, [facility] [place] [facility] [address] [id number] [place] [address] 6951 Jun, [facility] [place] [facility] [address] [id number] [place] [address] 3939 Jun, [facility] [place] [facility] [address] [id number] [place] [address]246 19 May, 2011 [facility] [place] [facility] [address] [id number] [place] [address] 7746 16 May, 2011 [facility] [place] [facility] [address] [id number] [place] [address]236 14 May, 2011 [facility] [place] [facility] [address] [id number] [place] [address]176 06 May, 2011 [facility] [place] [facility] [address] [id number] [place] [address]181 28 Apr, 2011 [facility] [place] [facility] [address] [id number] [place] [address]77 Apr, [facility] [place] [facility] [address] [id number] [place] [address]271 Apr, [facility] [place] [facility] [address] [id number] [place] [address] 6515 Apr, [facility] [place] [facility] [address] [id number] [place] [address] 1999 Apr, [facility] [place] [facility] [address] [id number] [place] [address] 4383 Apr, [facility] [place] [facility] [address] [id number] [place] [address] 7107 Apr, [facility] [place] [facility] [address] [id number] [place] [address] 8554 Apr, [facility] [place] [facility] [address] [id number] [place] [address]19 Mar, [facility] [place] [facility] [address] [id number] [place] [address] 2775 Mar, [facility] [place] [facility] [address] [id number] [place] [address]- 5209 19 Mar, 2011 [facility] [address] [id number] [place] [address] 18 Mar, 2011 [facility] [place] [facility] [address] [id number] [place] [address] 6080 17 Mar, 2011 [facility] [address] [id number] [place] [address] 8710 Mar, [facility] [place] [facility] [address] [id number] [place] [address]- 4983 Mar, [facility] [address] [id number] [place] [address] 6763 Mar, [facility] [address] [id number] [place] [address]- 2536 Mar, [facility] [address] [id number] [place] [address] 4010 Mar, [facility] [address] [id number] [place] [address] 480[address] Mar, [facility] [address] [id number] [place] [address] 3243 Mar, [facility] [address] [id number] [place] [address] 2185 Mar, [facility] [address] [id number] [place] [address] 0043 Mar, [facility] [place] [facility] [address] [id number] [place] [address]- 3787 Mar, [facility] [place] [facility] [address] [id number] [place] [address]- 8750 Mar, [facility] [place] [facility] [address] [id number] [place] [address] 7883 Feb, [facility] [address] [id number] [place] [address]- [address]293 Feb, [facility] [address] [id number] [place] [address] Feb, [facility] [address] [facility] [id number] [place] [address] Jan, [facility] [address] [facility] [id number] [place] [address] 1785 Jan, [facility] [address] [facility] [id number] [place] [address] 74[address] Jan, [facility] [address] [id number] [id number] [address] Dec, [facility] [address] [facility] [id number] [place] [address] Dec, [facility] [address] [facility] [id number] [place] [address]98 Nov, [facility] [address] [facility] [id number] [place] [address]- 4290 Oct, [facility] [address] [facility] [id number] [place] [address] 2137 Oct, [facility] [address] [id number] [place] [address]249 Oct, [facility] [address] [id number] [place] [address] 8808 Sep, [facility] [address] [facility] [id number] [place] [address]- 1728 Apr, [facility] [address] [facility] [id number] [place] [address] 4752 Feb, [facility] [address] [id number] [place] [address] Jan, IMMUNIZATIONS No Known Immunizations SOCIAL HISTORY Never Assessed REASON FOR VISIT BS level 244 2 hours after she ate, PT was released from the hospital [facility] from [facility] COPD [facility] Activity Details Follow Up prn Reason:has FU scheduled VITAL SIGNS Height 70 in 2017-03-30 Weight 265.3 lbs 2017-03-30 Temperature 98.6 degrees Fahrenheit 2017-03-30 Heart Rate 123 bpm 2017-03-30 Respiratory Rate 2017-03-30 Oximetry w/ oxygen @ 3L:96 % 2017-03-30 BMI 38.06 kg/m2 2017-03-30 Blood pressure systolic 140 mmHg 2017-03-30 Blood pressure diastolic 98 mmHg 2017-03-30 MEDICATIONS Medication Instructions Dosage Frequency Start Date End Date Duration Status Glimepiride 1 MG Orally Once a day on the days you are taking the prednsone 1 tablet with breakfast or the first main meal of the day Mar, 30 day(s) Active Oxygen 2Lt by inhalation route 24 hours Active Levalbuterol HCl 1.25 MG/3ML Inhalation every 8 hrs 8h Mar, Not-Taking Abilify 15 mg Orally Once a day 1 tablet 24h Jun, 90 days Active Topamax 100 mg Orally Twice a day 1 tablet 12h 30 Active Ipratropium-Albuterol 0.5-2.5 (3) MG/3ML Inhalation Four times a day 3 ml as needed for Shortness of breath 6h Active Cymbalta 60 mg Orally Once a day 2 capsule 24h Feb, Active Trulicity 0.75 MG/0.5ML Subcutaneous once weekly 0.5 ml Jun, 90 days Active Advair Diskus 250 mcg-50 mcg Inhalation Twice a day 1 puff 12h Dec, Active Zyrtec Allergy 10 MG Orally Once a day 1 tablet 24h Not-Taking Neurontin 300 MG Orally Three times a day-repository 1 capsule Dec, Active Ambien CR 6.25 MG Orally Once a day 1 tablet at bedtime as needed 24h Feb, 15 days Active Multivitamin Adult - Not-Taking Spiriva HandiHaler 18 MCG Inhalation Once a day 1 capsule 24h Active Melatonin 5 MG Orally Once a day 1 capsule at bedtime as needed with food 24h Feb, 30 day(s) Active RESULTS No Results PROCEDURES Procedure Date Ordered Result Body Site MEASURE BLOOD OXYGEN LEVEL Mar 30, 2017 INSTRUCTIONS MEDICATIONS ADMINISTERED No Known Medications MEDICAL (GENERAL) HISTORY Type Description Date Medical History COPD Medical History asthma Medical History heart cath Medical History Social phobia 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 Hospitalization History for COPD x2 Mar 2017 Hospitalization History Upper GI bleed at apr 2017 Hospitalization History [facility]- COPD Exacerbation, diarrhea 05/23/2017 Hospitalization History COPD exacerbation-[facility] 06/13/17
--- OUTSIDE RECORDS SUMMARY | 2017-09-18 19:50 | XMS REPORT ---
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 Active Problem Thrush B37.0 Active 82622965 Problem TMJ (sprain of temporomandibular joint) S03.4XXA Active 79601508 Problem Tobacco abuse Z72.0 Active 83801400 Problem Migraine G43.909 Active 76255843 Problem History of MRSA infection Z86.14 Active 699733543 Problem Knee pain, left M25.562 Active 76729037 Problem Obesity, unspecified obesity severity, unspecified obesity type E66.9 Active 215549928 Problem Acute bronchitis with COPD J44.0 Active 876049662152911 Problem Other emphysema J43.8 Active 99547510 Problem Chronic bronchitis, unspecified chronic bronchitis type J42 Active 44633566 Problem Migraine without aura and without status migrainosus, not intractable G43.009 Active 637692801 Problem COPD exacerbation J44.1 Active 246981219 Problem Chronic obstructive pulmonary disease with acute exacerbation J44.1 Active 004780412 Problem Chronic constipation K59.09 Active 129402355 Problem Dry mouth R68.2 Active 73286783 Problem Encounter for tobacco use cessation counseling Z71.6 Active 159727120 Problem Diabetes E11.9 Active 056401249 Problem Methamphetamine use disorder, moderate, 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 Active 98321451 Problem Intractable cyclical vomiting with nausea G43.A1 Active 45388939 Problem Viral illness B34.9 Active 80370590 Problem Left knee pain M25.562 Active 82280041 Problem Bipolar disorder, unspecified F31.9 Active 44506248 Problem Yeast vaginitis B37.3 Active 59190642 Problem Memory loss R41.3 Active 68055987 Problem Bipolar disorder with depression F31.30 Active 92997716 Problem Non morbid obesity due to excess calories E66.09 Active 823786810 Problem Bipolar disorder, current episode depressed, severe, without psychotic features F31.4 Active 18016604 Problem Generalized anxiety disorder F41.1 Active 59660033 ALLERGIES No Information ENCOUNTERS Encounter Location Date Diagnosis [facility] [id number] [place] [address] 07404- 4619 Aug, [facility] [address] 29918- 4342 Aug, Chronic obstructive pulmonary disease with acute exacerbation J44.1 [facility] [id number] [place] [address] 76039- 3100 Aug, [facility] [id number] [place] [address] 04741- 1229 Aug, [facility] [id number] [place] [address] 77077- 4860 July, [facility] [id number] [place] [address] 51095- 3284 July, [facility] [id number] [place] [address] 03039- 2161 July, Diabetes E11.9 and Chronic obstructive pulmonary disease with acute exacerbation J44.1 [facility] [id number] [place] [address] 26850- 1748 Jun, Chronic obstructive pulmonary disease with acute exacerbation J44.1 ; Diabetes E11.9 and Tobacco abuse Z72.0 [facility] [id number] [place] [address] 68442- 7866 Jun, [facility] [id number] [place] [address] 79686- 8063 Jun, [facility] [address] [address] May, [facility] [id number] [place] [address] 91446- 7696 19 May, 2017 [facility] [id number] [place] [address] 82905 -1525 17 May, 2017 [facility] [id number] [place] [address] 36866- 0386 16 May, 2017 [facility] [id number] [place] [address] 73401- 1846 15 May, 2017 [facility] [id number] [place] [address] 02567- 3804 14 May, 2017 Diarrhea, unspecified type R19.7 and Intractable cyclical vomiting with nausea G43.A1 [facility] [id number] [place] [address] 11322- 1021 12 May, 2017 [facility] [id number] [place] [address] 64089- 1920 05 May, 2017 [facility] [id number] [place] [address] 02193- 7262 Apr, COPD exacerbation J44.1 ; Esophageal candidiasis B37.81 ; Other acute gastritis with hemorrhage K29.01 and Acute posthemorrhagic anemia D62 [facility] [id number] [place] [address] 18707- 7890 Apr, Viral illness B34.9 and COPD exacerbation J44.1 [facility] [id number] [place] [address] 18530 -0051 Apr, Shortness of breath R06.02 and Pneumonia of both lower lobes due to infectious organism J18.9 [facility] [address], [place] [address] Mar, COPD with acute exacerbation J44.1 [facility] [id number] [place] [address] 67643- 0662 Mar, Chronic obstructive pulmonary disease with acute exacerbation J44.1 and Diabetes E11.9 [facility] [id number] [place] [address] 64549- 6523 Mar, [facility] [id number] [place] [address] 68332- 0691 Mar, [facility] [id number] [place] [address] 37990 -1273 Mar, COPD exacerbation J44.1 [facility] [id number] [place] [address] 66792- 2141 Mar, [facility] [id number] [place] [address] 76667- 6699 Mar, Migraine G43.909 ; Hypokalemia E87.6 and Type 2 diabetes mellitus without complications E11.9 [facility] [id number] [place] [address] 08109- 8356 Feb, [facility] [id number] [place] [address] 85985- 0800 Feb, [facility] [id number] [place] [address] 63320- 1584 Feb, Methamphetamine use disorder, moderate, 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 ; Major depressive disorder, recurrent, moderate F33.1 ; Anxiety disorder, unspecified F41.9 and Tobacco abuse Z72.0 [facility] [id number] [place] [address] 20704- 6671 30 Jan, 2017 Major depressive disorder, recurrent, moderate F33.1 [facility] [id number] [place] [address] 58775- 3772 Jan, [facility] [id number] [place] [address] 72659- 1216 Jan, [facility] [id number] [place] [address] 89852- 9423 Jan, Major depressive disorder, recurrent, moderate F33.1 [facility] [id number] [place] [address] 68446- 0156 Jan, Major depressive disorder, recurrent, moderate F33.1 ; Anxiety disorder, unspecified F41.9 ; Methamphetamine use disorder, moderate, 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 and Tobacco abuse Z72.0 [facility] [address] 79901- 4851 Jan, [facility] [address] 33318- 6921 Jan, Chronic obstructive pulmonary disease with acute exacerbation J44.1 and Diabetes E11.[address] 25251- 0796 Jan, [facility] [address] 47670- 1437 Jan, [facility] [address] 59682- 8840 Dec, Acute respiratory failure with hypoxia J96.01 ; Chronic bronchitis, unspecified chronic bronchitis type J42 and Tobacco use Z72.0 [facility] [id number] [place] [address] 05908- 6693 Dec, [facility] [id number] [place] [address] [id number] Nov, Dental caries K02.9 and Dental examination Z01.20 [facility] [id number] [place] [address] 18059- 7604 Nov, Major depressive disorder, recurrent, moderate F33.1 ; Anxiety disorder, unspecified F41.9 and 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 [facility] [id number] [place] [address] [id number] Oct, Dental examination Z01.20 [facility] [id number] [place] [address] 62421- 1343 Oct, [facility] [address] [place] [address] 05818- 8651 Oct, Diabetes E11.9 and Thrush B37.0 [facility] [id number] [place] [address] 66758- 5292 Oct, [facility] [id number] [place] [address] 92895- 1662 Oct, [facility] [id number] [place] [address] 24241- 0789 Oct, [facility] [id number] [place] [address] 61958- 3950 Sep, Major depressive disorder, recurrent, moderate F33.1 ; Anxiety disorder, unspecified F41.9 and Bipolar disorder, unspecified F31.9 [facility] [id number] [place] [address] 57520- 5803 Sep, Acute exacerbation of chronic obstructive pulmonary disease (COPD) J44.1 and Migraine G43.909 [facility] [id number] [place] [address] 24869- 7064 Sep, [facility] [id number] [place] [address] [id number] Sep, [facility] [id number] [place] [address] 86894- 1992 Sep, Acute exacerbation of chronic obstructive pulmonary disease (COPD) J44.1 [facility] [address] [address] Sep, Acute exacerbation of chronic obstructive pulmonary disease (COPD) J44.1 [facility] [id number] [place] [address] 59653- 6214 Aug, [facility] [id number] [place] [address] 06764- 8269 Aug, Major depressive disorder, recurrent, moderate F33.1 ; Anxiety disorder, unspecified F41.9 and 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 [facility] [address] [place] [address] 02297- 2946 19 Aug, 2016 Wheezing R06.2 ; Non morbid obesity due to excess calories E66.09 ; Migraine without aura and without status migrainosus, not intractable G43.009 and Tobacco abuse Z72.0 [facility] [id number] [place] [address] [id number] 14 Aug, 2016 Encounter for dental examination Z01.20 [facility] [address] 38897- 8407 02 Aug, 2016 Major depressive disorder, recurrent, moderate F33.1 ; Anxiety disorder, unspecified F41.9 and 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 [facility] [id number] [place] [address] 24446- 5009 July, [facility] [address] 38639- 7473 July, [facility] [id number] [place] [address] 58579- 0015 July, [facility] [id number] [place] [address] 82762- 5578 July, Diabetes E11.9 [facility] [id number] [place] [address] 20535- 3207 Jun, Major depressive disorder, recurrent, moderate F33.1 [facility] [id number] [place] [address] 33328- 3844 Jun, Major depressive disorder, recurrent, moderate F33.1 ; 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 ; Generalized anxiety disorder F41.1 and Bipolar disorder, unspecified F31.9 [facility] [id number] [place] [address] 36865- 0182 Jun, Diabetes E11.9 ; Migraine G43.909 ; Thrush B37.0 and Wheezing R06.2 [facility] [address] [id number] Jun, Dental examination Z01.20 [facility] [id number] [place] [address] 02332- 0703 Jun, [facility] [id number] [place] [address] 87190- 7307 Jun, Major depressive disorder, recurrent, moderate F33.1 ; Anxiety disorder, unspecified F41.9 and 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 [facility] [id number] [place] [address] 44377- 7041 Jun, [facility] [id number] [place] [address] 84197- 2987 Jun, Wheezing R06.2 [facility] [address] [place] [address] [id number] Jun, Dental caries K02.9 [facility] [id number] [place] [address] 14835- 6249 Jun, Major depressive disorder, recurrent, moderate F33.1 ; Anxiety disorder, unspecified F41.9 and 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 [facility] [address] [place] [address] 37059- 5329 Jun, RLQ abdominal pain R10.31 ; Diabetes E11.9 ; Obesity, unspecified obesity severity, unspecified obesity type E66.9 ; Wheezing R06.2 and Abnormal urinalysis R82.90 [facility] [address] [place] [address] 07639- 7400 May, [facility] [id number] [place] [address] 80343- 7979 May, Well woman exam Z01.419 ; Breast cancer screening Z12.39 ; Cervical cancer screening Z12.4 ; Urinary frequency R35.0 ; Edema, unspecified type R60.9 and Chronic constipation K59.09 [facility] [id number] [address]- 5455 May, Major depressive disorder, recurrent, moderate F33.1 ; Anxiety disorder, unspecified F41.9 and 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 [facility] [id number] [id number] May, Dental examination Z01.20 [facility] [id number] [place] [address] 77794- 0817 May, [facility] [id number] [place] [address] 49765- 8838 May, [facility] [id number] [place] [address] 45796- 2135 May, Chronic constipation K59.09 [facility] [id number] [place] [address] 88555- 9891 Apr, [facility] [id number] [place] [address] 44120- 3251 Apr, Major depressive disorder, recurrent, moderate F33.1 ; Anxiety disorder, unspecified F41.9 and Other stimulant dependence with unspecified stimulant-induced disorder 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 [facility] [address] [address]- 6994 Apr, [facility] [address] [place] [address] 58421- 4598 Mar, Major depressive disorder, recurrent, moderate F33.1 [facility] [address], [place] [address]- 4513 Mar, Major depressive disorder, recurrent, moderate F33.1 ; Generalized anxiety disorder F41.1 and Bipolar I disorder, most recent episode depressed with anxious distress F31.30 [facility] [address], [place] [address]- 9663 Mar, Diabetes E11.9 ; Non morbid obesity due to excess calories E66.09 ; Breast cancer screening Z12.39 and Encounter for immunization Z23 [facility] [id number] [place] [address] 51933- 7352 Mar, Major depressive disorder, recurrent, moderate F33.1 ; Anxiety disorder, unspecified F41.9 and 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 [facility] [id number] [place] [address] 59747- 8498 Mar, [facility] [id number] [place] [address] 62444- 2746 Feb, Major depressive disorder, recurrent, moderate F33.1 ; Anxiety disorder, unspecified F41.9 and 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 [facility] [id number] [place] [address] 95117- 0896 Feb, [facility] [id number] [place] [address] 07327- 9674 Feb, [facility] [id number] [place] [address] 17994- 8345 Jan, Major depressive disorder, recurrent, moderate F33.1 ; Generalized anxiety disorder F41.1 and Bipolar disorder, current episode depressed, severe, without psychotic features F31.4 [facility] [address] [place] [address] 01237- 4466 Jan, Major depressive disorder, recurrent, moderate F33.1 ; Anxiety disorder, unspecified F41.9 and 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 [facility] [address] [place] [address] 24221- 4637 Jan, Bronchitis J40 [facility] [id number] [place] [address] 60058- 2365 Jan, [facility] [id number] [place] [address] 21408- 1618 Jan, [facility] [id number] [place] [address] 41938- 9596 Jan, Elbow injury, right, initial encounter S59.901A ; Multiple contusions T14.8 and Cervical strain, acute, initial encounter S16.1XXA [facility] [address], [place] [address]- 0075 Dec, Major depressive disorder, recurrent, moderate F33.1 ; Generalized anxiety disorder F41.1 and Bipolar disorder with depression F31.30 [facility] [address] [place] [address] 98680- 5830 Dec, [facility] [id number] [place] [address] 32580- 8310 Dec, [facility] [address] [place] [address] 56946- 4955 Dec, [facility] [address], [place] [address]- 9296 Dec, [facility] [address] [place] [address] 53425- 6110 Dec, Yeast infection B37.9 [facility] [address], [place] [address]- 7450 Dec, Pneumonia of both lungs due to methicillin resistant Staphylococcus aureus (MRSA), unspecified part of lung J15.212 and Benzodiazepine overdose, accidental or unintentional, subsequent encounter T42.4X1D [facility] [id number], [place] [address]- 5507 Dec, [facility] [id number], [place] [address]- 4740 Dec, [facility] [address] [place] [address] 47816- 0213 Dec, Knee pain, left M25.562 and Edema, unspecified type R60.9 [facility] [id number], [place] [address]- 9361 Dec, [facility] [address] [place] [address] 93517- 0363 Dec, Anxiety disorder, unspecified F41.9 and Bipolar disorder, unspecified F31.9 [facility] [id number] [place] [address] 58449- 6794 Nov, Major depressive disorder, recurrent, moderate F33.1 ; Anxiety disorder, unspecified F41.9 and 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 [facility] [id number] [place] [address] 71955- 4403 Nov, [facility] [id number] [place] [address] 61277- 3066 Nov, Migraine without aura and without status migrainosus, not intractable G43.009 [facility] [id number] [place] [address] 33222- 7868 Nov, Migraine G43.909 [facility] [id number] [place] [address] 61102- 0852 Nov, [facility] [id number] [place] [address] 41859- 2347 Nov, Major depressive disorder, recurrent, moderate F33.1 ; Anxiety disorder, unspecified F41.9 and 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 [facility] [id number] [place] [address] 86918- 2443 Oct, Chronic constipation K59.09 and Obesity, unspecified obesity severity, unspecified obesity type E66.9 [facility] [id number] [place] [address] 40959- 5930 Oct, Obesity, unspecified obesity severity, unspecified obesity type E66.9 ; Chronic constipation K59.09 and Anxiety disorder, unspecified F41.9 [facility] [address] [place] [address] 97625- 2551 Oct, [facility] [id number] [place] [address] 42573- 7460 Sep, Diabetes E11.9 ; Edema, unspecified type R60.9 ; Varicose vein of leg I83.90 and Obesity, unspecified obesity severity, unspecified obesity type E66.9 [facility] [address] [place] [address] 53867- 5268 Sep, Edema, unspecified type R60.9 ; Diabetes E11.9 and Knee pain , left M25.562 [facility] [id number] [place] [address] 15531- 3675 Sep, [facility] [id number] [place] [address] 67818- 7522 Sep, [facility] [id number] [place] [address] 78490- 1690 Sep, Major depressive disorder, recurrent, moderate F33.1 ; Generalized anxiety disorder F41.1 and Bipolar disorder, unspecified F31.9 [facility] [id number] [place] [address] 77179- 6737 Aug, Chondromalacia of left knee M94.262 [facility] [id number] [place] [address] 50561- 8841 Aug, Major depressive disorder, recurrent, moderate F33.1 ; Anxiety disorder, unspecified F41.9 and 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 [facility] [address] [place] [address] 75540- 2523 Aug, [facility] [id number] [place] [address] 41575- 0595 Aug, Osteoarthritis of left knee M17.9 [facility] [id number] [place] [address] 85670- 1813 Aug, [facility] [id number] [place] [address] 80737- 1796 July, Major depressive disorder, recurrent, moderate F33.1 ; Anxiety disorder, unspecified F41.9 and 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 [facility] [id number] [place] [address] 48858- 8914 July, [facility] [id number] [place] [address] 84571- 6748 July, Chronic constipation K59.09 [facility] [id number] [place] [address] 01898- 1267 Jun, [facility] [id number] [place] [address] 88080- 2783 15 Jun, 2015 [facility] [id number] [place] [address] 15578- 2618 14 Jun, 2015 Osteoarthritis of left knee M17.9 [facility] [id number] [place] [address] 25316- 4952 13 Jun, 2015 [facility] [id number] [place] [address] 50675- 1150 13 Jun, 2015 Generalized anxiety disorder F41.1 ; Bipolar disorder, unspecified F31.9 and Major depressive disorder, recurrent, moderate F33.1 [facility] [id number] [place] [address] 71055- 4878 07 Jun, 2015 Migraine G43.909 [facility] [id number] [place] [address] 48309- 1599 07 Jun, 2015 Left knee pain M25.562 ; Chronic constipation K59.09 ; Dry mouth R68.2 ; Yeast vaginitis B37.3 and Memory loss R41.3 [facility] [id number] [place] [address] 94571- 2277 Jun, [facility] [id number] [place] [address] 51527- 1316 May, [facility] [id number] [place] [address] 05384- 8985 May, [facility] [id number] [place] [address] 78882- 3995 May, [place] [id number] [place] [address] 69888- 5315 May, [place] [id number] [place] [address] 77096- 3008 May, Acute bronchitis with COPD J44.0 ; Knee pain, left M25.562 and Encounter for tobacco use cessation counseling Z71.6 [facility] [facility] [id number] [place] [address] 96880- 8961 May, [place] [id number] [place] [address] 40541- 5491 Apr, Diabetes E11.9 ; TMJ (sprain of temporomandibular joint) S03.4XXA ; Tobacco abuse Z72.0 ; Migraine G43.909 and Anxiety F41.9 [facility] [facility] [id number] [place] [address] 39301- 7815 Apr, Generalized anxiety disorder F41.1 and Bipolar disorder, unspecified F31.9 [place] [id number] [place] [address] 81018- 3238 Apr, Major depressive disorder, recurrent, moderate F33.1 ; Anxiety disorder, unspecified F41.9 and 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 [place] [id number] [place] [address] 64998- 1382 Apr, [place] [id number] [place] [address] 61516- 0909 Mar, [place] [id number] [place] [address] 68014- 5423 Feb, [place] [id number] [place] [address] 03366- 7017 Feb, Major depressive disorder, recurrent, moderate F33.1 ; Anxiety disorder, unspecified F41.9 and 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 [place] [id number] [place] [address] 42498- 7697 Feb, [facility] [id number] [place] [address] 06632- 3918 Feb, Generalized anxiety disorder F41.1 and Bipolar disorder, unspecified F31.9 [facility] [id number] [place] [address] 50882- 7664 Jan, [facility] [id number] [place] [address] 86594- 4950 Jan, [facility] [id number] [place] [address] 39465- 0852 Jan, Bipolar disorder, unspecified F31.9 and Generalized anxiety disorder F41.1 [place] [id number] [place] [address] 27327- 2862 Dec, [facility] [address] 61202- 6872 Dec, Bipolar disorder, unspecified F31.9 and Generalized anxiety disorder F41.1 [place] [id number] [place] [address] 11723- 6894 Dec, Generalized anxiety disorder F41.1 and Major depressive disorder, recurrent, moderate F33.1 [facility] [id number] [place] [address] 72393- 9285 Oct, Headache 784.0 ; Cough 786.2 ; Vomiting and diarrhea 787.03 and Dysuria 788.1 [facility] [id number] [place] [address] 38400- 9855 Aug, [facility] [address] 96716- 2377 Aug, Headache 784.0 and Shortness of breath 786.05 [facility] [id number] [place] [address] 86733- 8139 Aug, [facility] [id number] [place] [address] [place] [address]- 2758 Aug, Migraine 346.90 [facility] [address] [id number] [place] [address]- 0646 14 Jun, 2014 [facility] [place] [facility] [address] [id number] [place] [address]- 6076 Jun, [facility] [address] [id number] [place] [address]- 9312 May, [facility] [place] [facility] [address] [id number] [place] [address]- 9383 May, [facility] [place] [facility] [address] [id number] [place] [address]- 2379 May, [facility] [place] [facility] [address] [id number] [place] [address]- 5359 May, [facility] [place] [facility] [address] [id number] [place] [address]- 5773 May, [facility] [place] [facility] [address] [id number] [place] [address]- 4785 May, [facility] [place] [facility] [address] [id number] [place] [address]- 0339 Apr, [facility] [place] [facility] [address] [facility] [id number] [place] [address]- 6071 Apr, [facility] [place] [facility] [address] [facility] [id number] [place] [address]- 9759 Apr, [facility] [place] [facility] [address] [id number] [place] [address]- 6188 Apr, [facility] [place] [facility] [address] [id number] [place] [address]- 1569 Apr, [facility] [place] [facility] [address] [id number] [place] 0297 Mar, [facility] [place] [facility] [address] [id number] [place] [address]- 8269 Mar, [facility] [place] [facility] [address] [id number] [place] [address]- 6720 Mar, [facility] [place] [facility] [address] [id number] [place] [address]- 8292 Mar, [facility] [place] [facility] [address] [id number] [place] [address]- 6647 Feb, [facility] [place] [facility] [address] [id number] [place] [address]- 7690 Feb, [facility] [place] [facility] [address] [id number] [place] [address]- 1065 Feb, [facility] [place] [facility] [address] [id number] [place] [address]- 6231 Feb, [facility] [place] [facility] [address] [id number] [place] [address]- 0882 Feb, [facility] [place] [facility] [address] [id number] [place] [address]- 6808 Feb, [facility] [place] [facility] [address] [id number] [place] [address]- 0231 Feb, [facility] [place] [facility] [address] [id number] [place] [address]- 2099 Feb, [facility] [place] [facility] [address] [id number] [place] [address]- 6704 Feb, [facility] [place] [facility] [address] [id number] [address]- 6309 Feb, [facility] [place] [facility] [address] [id number] [place] [address]- 5102 Feb, [facility] [place] [facility] [address] [id number] [place] [address]- 8731 Feb, [facility] [place] [facility] [address] [id number] [place] [address]- 1958 Jan, [facility] [place] [facility] [address] [id number] [place] [address]- 6306 Jan, [facility] [place] [facility] [address] [id number] [place] [address]- 0618 Dec, [facility] [place] [facility] [address] [id number] [place] [address]- 7379 Dec, [facility] [place] [facility] [address] [id number] [place] [address]- 2883 Dec, [facility] [place] [facility] [address] [id number] [place] [address]- 3285 Dec, [facility] [place] [facility] [address] [id number] [place] [address]- 1027 Dec, [facility] [place] [facility] [address] [id number] [place] [address]- 8704 Dec, [facility] [place] [facility] [address] [id number] [place] [address]- 8503 Sep, [facility] [place] [facility] [address] [id number] [place] [address]- 4433 Sep, [facility] [place] [facility] [address] [id number] [place] [address]- 7991 Sep, [facility] [place] [facility] [address] [id number] [place] [address]- 7391 Sep, [facility] [place] [facility] [address] [id number] [place] [address]- 9186 Sep, [facility] [place] [facility] [address] [id number] [place] [address]- 9564 Sep, [facility] [place] [facility] [address] [id number] [place] [address]- 9162 Sep, [facility] [place] [facility] [address] [id number] [place] [address]- 7308 Sep, [facility] [place] [facility] [address] [id number] [place] [address]- 6044 Sep, [facility] [place] [facility] [address] [id number] [place] [address]- 6506 Sep, [facility] [place] [facility] [address] [id number] [place] [address]- 1027 Aug, [facility] [place] [facility] [address] [id number] [place] [address]- 7633 Aug, [facility] [place] [facility] [address] [id number] [place] [address]- 4166 Aug, [facility] [place] [facility] [address] [id number] [place] [address]- 8815 Aug, [facility] [place] [facility] [address] [id number] [place] [address]- 3546 Aug, [facility] [place] [facility] [address] [id number] [place] [address]- 5473 Aug, [facility] [place] [facility] [address] [id number] [place] [address]- 5499 Aug, [facility] [place] [facility] [address] [id number] [place] [address]- 9342 Aug, [facility] [place] [facility] [address] [id number] [place] [address]- 9759 Aug, [facility] [place] [facility] [address] [id number] [place] [address]- 4863 Aug, [facility] [place] [facility] [address] [id number] [place] [address]- 8369 Aug, [facility] [place] [facility] [address] [id number] [place] [address]- 5664 Aug, [facility] [place] [facility] [address] [id number] [place] [address]- 1818 Aug, [facility] [place] [facility] [address] [id number] [place] [address]- 2148 July, [facility] [place] [facility] [address] [id number] [place] [address]- 1361 July, [facility] [place] [facility] [address] [id number] [place] [address]- 8550 July, [facility] [place] [facility] [address] [id number] [place] [address]- 5545 July, [facility] [place] [facility] [address] [id number] [place] 7971 July, [facility] [place] [facility] [address] [id number] [place] [address]- 7662 July, [facility] [place] [facility] [address] [id number] [place] 8879 July, [facility] [place] [facility] [address] [id number] [place] [address]- 9296 Jun, [facility] [place] [facility] [address] [id number] [place] [address]- 9055 Jun, [facility] [place] [facility] [address] [id number] [place] [address]- 3796 Jun, [facility] [place] [facility] [address] [id number] [place] [address]- 0520 Jun, [facility] [place] [facility] [address] [id number] [place] [address]- 1409 Jun, [facility] [place] [facility] [address] [id number] [place] [address]- 6910 Jun, [facility] [place] [facility] [address] [id number] [place] [address]- 1419 Jun, [facility] [place] [facility] [address] [id number] [place] [address]- 1025 May, [facility] [place] [facility] [address] [id number] [place] [address]- 7298 May, [facility] [place] [facility] [address] [id number] [place] [address]- 8473 May, [facility] [place] [facility] [address] [id number] [place] [address]- 8247 14 May, 2013 [facility] [place] [facility] [address] [id number] [place] [address]- 4348 13 May, 2013 [facility] [place] [facility] [address] [id number] [place] [address]- 4393 13 May, 2013 [facility] [place] [facility] [address] [id number] [place] [address]- 5113 10 May, 2013 [facility] [place] [facility] [address] [id number] [place] [address]- 7356 10 May, 2013 [facility] [place] [facility] [address] [id number] [place] [address]- 9967 07 May, 2013 [facility] [place] [facility] [address] [facility] [id number] [place] [address]- 3651 26 Apr, 2013 [facility] [place] [facility] [address] [facility] [id number] [place] [address]- 1974 26 Apr, 2013 [facility] [place] [facility] [address] [id number] [place] [address]- 8078 18 Apr, 2013 [facility] [place] [facility] [address] [facility] [id number] [place] [address]- 8247 15 Apr, 2013 [facility] [place] [facility] [address] [facility] [id number] [place] [address]- 7033 15 Apr, 2013 [facility] [place] [facility] [address] [facility] [id number] [place] [address]- 7130 11 Apr, 2013 [facility] [place] [facility] [address] [id number] [place] [address]- 8271 05 Apr, 2013 [facility] [place] [facility] [address] [id number] [place] [address]- 9863 05 Apr, 2013 [facility] [place] [facility] [address] [facility] [id number] [place] [address]- 3714 05 Apr, 2013 [facility] [place] [facility] [address] [facility] [id number] [place] [address]- 6526 Apr, [facility] [place] [facility] [address] [id number] [place] [address]- 7910 Mar, [facility] [place] [facility] [address] [id number] [place] [address]- 9031 Mar, [facility] [place] [facility] [address] [id number] [place] [address]- 9935 Mar, [facility] [place] [facility] [address] [id number] [place] [address]- 4609 Mar, [facility] [place] [facility] [address] [id number] [place] [address]- 9502 Mar, [facility] [place] [facility] [address] [id number] [place] [address]- 9468 Mar, [facility] [place] [facility] [address] [id number] [place] [address]- 0304 Mar, [facility] [place] [facility] [address] [id number] [place] [address]- 4235 Mar, [facility] [place] [facility] [address] [id number] [place] [address]- 5520 Feb, [facility] [place] [facility] [address] [id number] [place] [address]- 1372 Feb, [facility] [place] [facility] [address] [id number], [place] [address]- 1555 Jan, [facility] [place] [facility] [address] [id number], [place] [address]- 5802 18 Jan, 2013 [facility] [place] [facility] [address] [id number] [place] [address]- 0088 15 Jan, 2013 [facility] [place] [facility] [address] [id number] [place] [address]- 8285 15 Jan, 2013 [facility] [place] [facility] [address] [id number] [place] [address]- 6711 12 Jan, 2013 [facility] [place] [facility] [address] [id number] [place] [address]- 1121 Jan, [facility] [address] [id number] [place] [address]- 4909 Jan, [facility] [place] [facility] [address] [id number] [place] [address]- 3801 Jan, [facility] [address] [id number] [place] [address]- 3981 Dec, [facility] [place] [facility] [address] [id number] [place] [address]- 7223 Dec, [facility] [address] [id number] [place] [address]- 7546 Dec, [facility] [place] [facility] [address] [id number] [place] [address]- 7987 20 Nov, 2012 [facility] [place] [facility] [address] [id number] [place] [address]- 8756 Nov, [facility] [address] [id number] [place] [address]- 2942 12 Nov, 2012 [facility] [place] [facility] [address] [id number] [place] [address]- 9331 Nov, [facility] [address] [id number] [place] [address]- 0551 Nov, [facility] [place] [facility] [address] [id number] [place] [address]- 2548 Nov, [facility] [place] [facility] [address] [id number] [place] [address]- 0716 Oct, [facility] [place] [facility] [address] [id number] [place] [address]- 1539 Oct, [facility] [place] [facility] [address] [id number] [place] [address]- 0535 Sep, [facility] [place] [facility] [address] [id number] [place] [address]- 3202 Sep, [facility] [address] [id number] [place] [address]- 2568 Sep, [facility] [place] [facility] [address] [id number] [place] [address]- 5104 Sep, [facility] [place] [facility] [address] [id number] [place] [address]- 3629 Sep, [facility] [place] [facility] [address] [id number] [place] [address]- 6422 Sep, [facility] [place] [facility] [address] [id number] [place] [address]- 6383 Sep, [facility] [place] [facility] [address] [id number] [place] [address]- 6711 Aug, [facility] [place] [facility] [address] [id number] [place] [address]- 3866 Aug, [facility] [place] [facility] [address] [id number] [place] [address]- 6260 Aug, [facility] [place] [facility] [address] [id number] [place] [address]- 8390 Aug, [facility] [place] [facility] [address] [id number] [place] [address]- 4259 Aug, [facility] [place] [facility] [address] [id number] [place] [address]- 5070 Aug, [facility] [place] [facility] [address] [id number], [place] [address]- 9066 July, [facility] [place] [facility] [address] [id number] [place] [address]- 7453 July, [facility] [place] [facility] [address] [id number] [place] [address]- 7150 July, [facility] [place] [facility] [address] [id number] [place] 0410 July, [facility] [place] [facility] [address] [id number], [place] [address]- 0109 July, [facility] [address] [id number] [place] [address]- 8433 July, [facility] [address] [facility] [id number] [place] [address]- 3134 Jun, [facility] [address] [facility] [id number] [place] [address]- 9279 Jun, [facility] [address] [id number] [place] [address]- 4486 Jun, [facility] [address] [id number] [place] [address]- 3889 Jun, [facility] [address] [id number] [place] [address]- 4628 Jun, [facility] [id number] [place] [address]- 5898 Jun, [facility] [address] [id number] [place] [address]- 9381 Jun, [facility] [address] [id number] [place] [address]- 4664 May, [facility] [address] [id number] [place] [address]- 9435 May, [facility] [address] [id number] [place] [address]- 4792 Apr, [facility] [place] [facility] [address] [facility] [id number], [place] [address]- 4642 Apr, [facility] [place] [facility] [address] [id number] [place] [address] Apr, [facility] [place] [facility] [address] [facility] [id number], [place] [address] Apr, [facility] [address] [id number], [place] [address] Apr, [facility] [place] [facility] [address] [id number] [place] [address] 08 Apr, 2012 [facility] [place] [facility] [address] [id number] [place] [address] 07 Apr, 2012 [facility] [address] [id number] [place] [address] 07 Apr, 2012 [facility] [place] [facility] [address] [id number] [place] [address]097 Apr, [facility] [address] [id number] [place] [address] Apr, [facility] [place] [facility] [address] [id number] [place] [address] Apr, [facility] [place] [facility] [address] [id number] [place] [address] Mar, [facility] [address] [id number] [place] [address] Mar, [facility] [place] [facility] [address] [id number] [place] [address] 30[address] Mar, [facility] [address] [id number] [place] [address] Mar, [facility] [place] [facility] [address] [id number][place] [address] Mar, [facility] [place] [facility] [address] [id number], [place] [address] Mar, [facility] [place] [facility] [address] [id number] [place] [address] Mar, [facility] [place] [facility] [address] [id number], [place] [address] Mar, [facility] [place] [facility] [address] [id number] [place] [address]70 Mar, [facility] [place] [facility] [address] [id number] [place] [address]- 6103 08 Mar, 2012 [facility] [address] [id number] [place] [address] 08 Mar, 2012 [facility] [address] [id number] [place] [address] Mar, [facility] [address] [id number] [place] [address]446 Mar, [facility] [address] [id number] [place] [address] Feb, [facility] [address] [id number] [place] [address]- [address]71 Feb, [facility] [address] [id number] [place] [address]- 9951 18 Feb, 2012 [facility] [address] [id number] [place] [address] 3961 18 Feb, 2012 [facility] [address] [id number] [place] [address] 7784 Feb, [facility] [address] [id number] [place] [address] 0[address] 11 Feb, 2012 [facility] [address] [id number] [place] [address] Feb, [facility] [address] [id number] [place] [address] 6466 10 Feb, 2012 [facility] [place] [facility] [address] [id number] [place] [address] 2546 10 Feb, 2012 [facility] [place] [facility] [address] [id number] [place] [address] 9166 10 Feb, 2012 [facility] [place] [facility] [address] [id number] [place] [address] 2596 06 Feb, 2012 [facility] [place] [facility] [address] [id number] [place] [address] 05 Feb, 2012 [facility] [place] [facility] [address] [id number] [place] [address]- 8125 Feb, [facility] [place] [facility] [address] [id number] [place] [address] 38[address] Feb, [facility] [place] [facility] [address] [id number] [place] [address]- 5660 Feb, [facility] [place] [facility] [address] [id number] [place] [address] Jan, [facility] [place] [facility] [address] [id number] [place] [address] Jan, [facility] [place] [facility] [address] [id number] [place] [address]- 8476 Jan, [facility] [place] [facility] [address] [id number] [place] [address] Jan, [facility] [place] [facility] [address] [id number] [place] [address]- 4753 Dec, [facility] [place] [facility] [address] [id number] [place] [address] 8934 Dec, [facility] [place] [facility] [address] [id number] [place] [address]- 8879 Dec, [facility] [place] [facility] [address] [id number] [place] [address]- 2744 Dec, [facility] [place] [facility] [address] [id number] [place] [address]- 2230 Dec, [facility] [place] [facility] [address] [id number] [place] [address]- 3594 Dec, [facility] [place] [facility] [address] [id number] [place] [address]- [address]015 Dec, [facility] [place] [facility] [address] [id number] [place] [address]- 9490 Dec, [facility] [place] [facility] [address] [id number], [place] [address] 07 Dec, 2011 [facility] [place] [facility] [address] [id number] [place] [address]- 0949 04 Dec, 2011 [facility] [place] [facility] [address] [id number] [place] [address]- 8296 03 Dec, 2011 [facility] [place] [facility] [address] [id number] [place] [address] 2546 25 Sep, 2011 [facility] [place] [facility] [address] [id number] [place] [address] 2543 24 Sep, 2011 [facility] [place] [facility] [address] [id number] [place] [address]- 4211 20 Sep, 2011 [facility] [place] [facility] [address] [id number] [place] [address] 0446 19 Sep, 2011 [facility] [place] [facility] [address] [id number] [place] [address]- 2465 17 Sep, 2011 [facility] [place] [facility] [address] [id number] [place] [address]- 6091 16 Sep, 2011 [facility] [place] [facility] [address] [id number] [place] [address]- 5530 14 Sep, 2011 [facility] [place] [facility] [address] [id number] [place] [address]- 0577 13 Sep, 2011 [facility] [place] [facility] [address] [id number], [place] [address]- [address]33 12 Sep, 2011 [facility] [place] [facility] [address] [id number], [place] [address] 1189 07 Sep, 2011 [facility] [place] [facility] [address] [id number] [place] [address] 2543 06 Sep, 2011 [facility] [place] [facility] [address] [id number], [place] [address]876 06 Sep, 2011 [facility] [place] [facility] [address] [id number], [place] [address]- 254 05 Sep, 2011 [facility] [place] [facility] [address] [id number] [place] [address]309 Oct, [facility] [place] [facility] [address] [id number] [place] [address] Oct, [facility] [place] [facility] [address] [id number] [place] [address] Oct, [facility] [place] [facility] [address] [id number] [place] [address] Oct, [facility] [place] [facility] [address] [id number] [place] [address] Oct, [facility] [place] [facility] [address] [id number] [place] [address] Oct, [facility] [place] [facility] [address] [id number] [place] [address] Oct, [facility] [place] [facility] [address] [id number] [place] [address] Oct, [facility] [address] [id number] [place] [address] Oct, [facility] [place] [facility] [address] [id number] [place] [address] Oct, [facility] [address] [id number] [place] [address] Oct, [facility] [place] [facility] [address] [id number] [place] [address] Sep, [facility] [place] [facility] [address] [id number] [place] [address] Sep, [facility] [place] [facility] [address] [id number] [place] [address] Sep, [facility] [place] [facility] [address] [id number] [place] [address] Sep, [facility] [place] [facility] [address] [id number] [place] [address] Sep, [facility] [address] [id number] [place] [address] Sep, [facility] [place] [facility] [address] [id number] [place] [address] Aug, [facility] [place] [facility] [address] [id number] [place] [address] July, [facility] [place] [facility] [address] [id number] [place] [address] July, [facility] [place] [facility] [address] [id number] [place] [address] Jun, [facility] [place] [facility] [address] [id number] [place] [address] Jun, [facility] [place] [facility] [address] [id number] [place] [address] Jun, [facility] [place] [facility] [address] [id number] [place] [address]- [address] Jun, [facility] [place] [facility] [address] [id number] [place] [address] 6160 Jun, [facility] [place] [facility] [address] [id number] [place] [address] Jun, [facility] [place] [facility] [address] [id number] [place] [address] 7548 Jun, [facility] [place] [facility] [address] [id number] [place] [address]- 7848 Jun, [facility] [place] [facility] [address] [id number] [place] [address]- 235[address] Jun, [facility] [place] [facility] [address] [id number] [place] [address] Jun, [facility] [place] [facility] [address] [id number] [place] [address]- 4736 Jun, [facility] [place] [facility] [address] [id number] [place] [address]- [address] 19 May, 2011 [facility] [address] [id number] [place] [address] 2546 16 May, 2011 [facility] [place] [facility] [address] [id number] [place] [address]596 14 May, 2011 [facility] [place] [facility] [address] [id number] [place] [address]- [address] 06 May, 2011 [facility] [place] [facility] [address] [id number] [place] [address] 28 Apr, 2011 [facility] [place] [facility] [address] [id number] [place] [address] 9396 Apr, [facility] [place] [facility] [address] [id number] [place] [address] 2546 Apr, [facility] [address] [id number] [place] [address]- [address] Apr, [facility] [place] [facility] [address] [id number] [place] [address]- 9020 Apr, [facility] [place] [facility] [address] [id number] [place] [address]- [address] Apr, [facility] [address] [id number] [place] [address] Apr, [facility] [place] [facility] [address] [id number] [place] [address] 2546 Apr, [facility] [place] [facility] [address] [id number] [place] [address] 2544 Mar, [facility] [place] [facility] [address] [id number] [place] [address]- 7996 Mar, [facility] [place] [facility] [address] [id number] [place] [address]- 25[address] Mar, [facility] [place] [facility] [address] [id number] [place] [address] Mar, [facility] [address] [id number] [place] [address]- [address] 17 Mar, 2011 [facility] [place] [facility] [address] [id number] [place] [address]- [address] Mar, [facility] [place] [facility] [address] [id number] [place] [address]- 95[address] Mar, [facility] [place] [facility] [address] [id number] [place] [address]- 0770 Mar, [facility] [address] [id number] [place] [address] 29[address] Mar, [facility] [place] [facility] [address] [id number] [place] [address]- 6656 Mar, [facility] [address] [id number] [place] [address]- 9762 Mar, [facility] [address] [id number] [place] [address]- 5529 Mar, [facility] [place] [facility] [address] [id number] [place] [address]- 7019 Mar, [facility] [place] [facility] [address] [id number] [place] [address]- 3772 Mar, [facility] [place] [facility] [address] [id number] [place] [address]- 2159 Mar, [facility] [place] [facility] [address] [id number] [address] Mar, [facility] [place] [facility] [address] [id number] [place] [address]- 1126 Feb, [facility] [place] [facility] [address] [id number] [place] [address]- 8626 Feb, [facility] [place] [facility] [address] [id number] [place] [address]- 4449 Feb, [facility] [place] [facility] [address] [id number], [place] [address] Jan, [facility] [id number] [address] Jan, [facility] [id number], [place] [address] Jan, [facility] [id number], [place] [address] Dec, [facility] [id number], [place] [address] Dec, [facility] [id number] [place] [address]- [address] Nov, [facility] [id number], [place] [address] 8511 Oct, [facility] [id number] [place] [address]- [address]12 Oct, [facility] [id number], [place] [address] 96[address] Oct, [facility] [id number] [place] [address]- 7027 Sep, [facility] [id number], [place] [address] Apr, [facility] [id number], [place] [address] Feb, [facility] [address] [id number] [address] Jan, IMMUNIZATIONS No Known Immunizations SOCIAL HISTORY Never Assessed REASON FOR VISIT med changes in the hospital PLAN OF CARE VITAL SIGNS MEDICATIONS Medication Instructions Dosage Frequency Start Date End Date Duration Status Levalbuterol HCl 1.25 MG/3ML Inhalation every 8 hrs 8h Mar, Active RESULTS No Results PROCEDURES No Known [...] HEALTH SERVICES 12/30/2016 Hospitalization History [facility] [place] [facility]-last around 2006 or so. Hospitalization History for COPD x2 Mar 2017 Hospitalization History Upper GI bleed at apr 2017 Hospitalization History [facility]- COPD Exacerbation, diarrhea 05/23/2017 Hospitalization History COPD exacerbation-[facility] 06/13/17
--- OUTSIDE RECORDS SUMMARY | 2017-09-18 19:52 | XMS REPORT ---
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 Active Problem Thrush B37.0 Active 69926758 Problem TMJ (sprain of temporomandibular joint) S03.4XXA Active 20951362 Problem Tobacco abuse Z72.0 Active 12257193 Problem Migraine G43.909 Active 28020744 Problem History of MRSA infection Z86.14 Active 509852033 Problem Knee pain, left M25.562 Active 65039413 Problem Obesity, unspecified obesity severity, unspecified obesity type E66.9 Active 111008001 Problem Acute bronchitis with COPD J44.0 Active 880530535649638 Problem Other emphysema J43.8 Active 74312680 Problem Chronic bronchitis, unspecified chronic bronchitis type J42 Active 75921240 Problem Migraine without aura and without status migrainosus, not intractable G43.009 Active 733898380 Problem COPD exacerbation J44.1 Active 855363219 Problem Chronic obstructive pulmonary disease with acute exacerbation J44.1 Active 742602454 Problem Chronic constipation K59.09 Active 618484603 Problem Dry mouth R68.2 Active 32247974 Problem Encounter for tobacco use cessation counseling Z71.6 Active 296163526 Problem Diabetes E11.9 Active 944548059 Problem Methamphetamine use disorder, moderate, 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 Active 56956213 Problem Intractable cyclical vomiting with nausea G43.A1 Active 77001784 Problem Viral illness B34.9 Active 01724046 Problem Left knee pain M25.562 Active 20966643 Problem Bipolar disorder, unspecified F31.9 Active 22846405 Problem Yeast vaginitis B37.3 Active 64105341 Problem Memory loss R41.3 Active 81944058 Problem Bipolar disorder with depression F31.30 Active 71784797 Problem Non morbid obesity due to excess calories E66.09 Active 914429273 Problem Bipolar disorder, current episode depressed, severe, without psychotic features F31.4 Active 29389467 Problem Generalized anxiety disorder F41.1 Active 31823975 ALLERGIES No Information ENCOUNTERS Encounter Location Date Diagnosis [facility] [id number] [place] [address] 70732- 7169 Aug, [facility] [address] 73228- 5407 Aug, Chronic obstructive pulmonary disease with acute exacerbation J44.1 [facility] [id number] [place] [address] 60899- 3138 Aug, [facility] [id number] [place] [address] 91078- 3140 Aug, [facility] [id number] [place] [address] 16285- 4561 July, [facility] [id number] [place] [address] 93577- 4086 July, [facility] [id number] [place] [address] 41108- 7111 July, Diabetes E11.9 and Chronic obstructive pulmonary disease with acute exacerbation J44.1 [facility] [id number] [place] [address] 34153- 6902 Jun, Chronic obstructive pulmonary disease with acute exacerbation J44.1 ; Diabetes E11.9 [address] Tobacco abuse Z72.0 [facility] [id number] [place] [address] 40680- 5030 Jun, [facility] [id number] [place] [address] 55689- 0136 Jun, [facility] [address] [address] 4676 May, [facility] [id number] [place] [address] 43592- 2918 19 May, 2017 [facility] [id number] [place] [address] 96843 -7977 17 May, 2017 [facility] [id number] [place] [address] 38628- 7444 16 May, 2017 [facility] [id number] [place] [address] 85748- 0127 15 May, 2017 [facility] [id number] [place] [address] 55434- 0010 14 May, 2017 Diarrhea, unspecified type R19.7 and Intractable cyclical vomiting with nausea G43.A1 [facility] [id number] [place] [address] 92388- 9274 12 May, 2017 [facility] [id number] [place] [address] 81668- 1132 05 May, 2017 [facility] [id number] [place] [address] 82898- 2054 Apr, COPD exacerbation J44.1 ; Esophageal candidiasis B37.81 ; Other acute gastritis with hemorrhage K29.01 and Acute posthemorrhagic anemia D62 [facility] [id number] [place] [address] 28956- 4753 Apr, Viral illness B34.9 and COPD exacerbation J44.1 [facility] [address] [place] [address] 25017 -3934 Apr, Shortness of breath R06.02 and Pneumonia of both lower lobes due to infectious organism J18.9 [facility] [address], [place] [address] Mar, COPD with acute exacerbation J44.1 [facility] [id number] [place] [address] 06455- 6220 Mar, Chronic obstructive pulmonary disease with acute exacerbation J44.[address] [facility] [address] [place] [address] 10049- 1614 Mar, [facility] [address] [place] [address] 80068- 6307 Mar, [facility] [id number] [place] [address] 14385 -6286 Mar, COPD exacerbation J44.1 [facility] [id number] [place] [address] 37090- 2345 Mar, [facility] [id number] [place] [address] 40848- 0411 Mar, Migraine G43.909 ; Hypokalemia E87.6 and Type 2 diabetes mellitus without complications E11.9 [facility] [id number] [place] [address] 97346- 6495 Feb, 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 [id number] [place] [address] 44936- 8176 Jan, [facility] [id number] [place] [address] 83270- 5797 Jan, Major depressive disorder, recurrent, moderate F33.1 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 and Tobacco abuse Z72.0 [place] [address] 08362- 8924 Jan, [facility] [address] 13003- 6293 Jan, Chronic obstructive pulmonary disease with acute exacerbation J44.1 and Diabetes E11.[address] 36491- 5118 Jan, [facility] [address] 85844- 8887 Jan, [facility] [address] 23786- 0419 Dec, Acute respiratory failure with hypoxia J96.01 ; Chronic bronchitis, unspecified chronic bronchitis type J42 and Tobacco use Z72.0 [facility] [id number] [place] [address] 34386- 1523 Dec, [facility] [id number] [place] [address] [id number] Nov, Dental caries K02.9 and Dental examination Z01.20 [facility] [id number] [place] [address] 80957- 6768 Nov, Major depressive disorder, recurrent, moderate F33.1 ; Anxiety disorder, unspecified F41.9 and 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 [id number] [place] [address] 84169- 8979 Oct, [facility] [id number] [place] [address] 46459- 1268 Oct, [facility] [id number] [place] [address] 41194- 5871 Oct, [facility] [id number] [place] [address] 48447- 2491 Sep, Major depressive disorder, recurrent, moderate F33.1 ; Anxiety disorder, unspecified F41.9 and Bipolar disorder, unspecified F31.9 [facility] [id number] [place] [address] 51956- 9047 Sep, Acute exacerbation of chronic obstructive pulmonary disease (COPD) J44.[address] [facility] [id number] [place] [address] 83627- 5705 Sep, [facility] [id number] [place] [address] [id number] Sep, [facility] [address] [place] [address] 43735- 7390 Sep, Acute exacerbation of chronic obstructive pulmonary disease (COPD) J44.1 [facility] [address] [address] Sep, Acute exacerbation of chronic obstructive pulmonary disease (COPD) J44.1 [facility] [address] [place] [address] 53677- 3419 Aug, 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 [address] [place] [address] 26215- 5601 19 Aug, 2016 Wheezing R06.2 ; Non morbid obesity due to excess calories E66.09 ; Migraine without aura and without status migrainosus, not intractable G43.009 and Tobacco abuse Z72.0 [facility] [address] [place] [address] [id number] 14 Aug, 2016 Encounter for dental examination Z01.20 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 [id number] [place] [address] 52190- 3897 July, [facility] [id number] [place] [address] 79573- 4008 July, Diabetes E11.9 [facility] [id number] [place] [address] 63800- 2212 Jun, Major depressive disorder, recurrent, moderate F33.1 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 [facility] [address] [place] [address] 28487- 9886 Jun, RLQ abdominal pain R10.31 ; Diabetes E11.9 ; Obesity, unspecified obesity severity, unspecified obesity type E66.9 ; Wheezing R06.2 and Abnormal urinalysis R82.90 [facility] [address] [place] [address] 08870- 4250 May, [facility] [id number] [place] [address] 85395- 3235 May, Well woman exam Z01.419 ; Breast cancer screening Z12.39 ; Cervical cancer screening Z12.4 ; Urinary frequency R35.0 ; Edema, unspecified type R60.9 and Chronic constipation K59.09 [facility] [address] [address]- 7182 May, Major depressive disorder, recurrent, moderate F33.1 ; Anxiety disorder, unspecified F41.9 and 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 [id number] [place] [address] 04681- 4478 May, [facility] [address] [place] [address] 03148- 8737 May, [facility] [id number] [place] [address] 49541- 8814 May, Chronic constipation K59.09 [facility] [address] [place] [address] 54096- 3334 Apr, 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 [address] [place] [address] 12204- 1003 Mar, Major depressive disorder, recurrent, moderate F33.1 [facility] [address], [place] [address]- 7494 Mar, Major depressive disorder, recurrent, moderate F33.1 ; Generalized anxiety disorder F41.1 and Bipolar I disorder, most recent episode depressed with anxious distress F31.30 [facility] [address], [place] [address]- 1733 Mar, Diabetes E11.9 ; Non morbid obesity due to excess calories E66.09 ; Breast cancer screening Z12.39 and Encounter for immunization Z23 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 [facility] [id number] [place] [address] 89796- 5738 Feb, [facility] [id number] [place] [address] 15537- 2908 Feb, [facility] [id number] [place] [address] 94495- 7729 Jan, Major depressive disorder, recurrent, moderate F33.1 ; Generalized anxiety disorder F41.1 and Bipolar disorder, current episode depressed, severe, without psychotic features F31.4 [facility] [address] [place] [address] 99759- 9235 Jan, Major depressive disorder, recurrent, moderate F33.1 ; Anxiety disorder, unspecified F41.9 and 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 [address], [place] [address]- 1114 Dec, Major depressive disorder, recurrent, moderate F33.1 ; Generalized anxiety disorder F41.1 and Bipolar disorder with depression F31.30 [facility] [address] [place] [address] 23084- 6743 Dec, [facility] [id number] [place] [address] 73501- 2356 Dec, [facility] [address] [place] [address] 68140- 4067 Dec, [facility] [address], [place] [address]- 3477 Dec, [facility] [address] [place] [address] 82532- 7013 Dec, Yeast infection B37.9 [facility] [address], [place] [address]- 0674 Dec, Pneumonia of both lungs due to methicillin resistant Staphylococcus aureus (MRSA), unspecified part of lung J15.212 and Benzodiazepine overdose, accidental or unintentional, subsequent encounter T42.4X1D [facility] [address] [address]- 2716 Dec, [facility] [address], [place] [address]- 2313 Dec, [facility] [address] [place] [address] 67328- 3939 Dec, Knee pain, left M25.562 and Edema, unspecified type R60.9 [facility] [address] [address]- 7266 Dec, 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 [facility] [id number] [place] [address] 53108- 1098 Nov, [facility] [id number] [place] [address] 25677- 1342 Nov, Migraine without aura and without status migrainosus, not intractable G43.009 [facility] [address] [place] [address] 99853- 2479 Nov, Migraine G43.909 [facility] [id number] [place] [address] 45501- 1270 Nov, [facility] [id number] [place] [address] 33935- 3678 Nov, Major depressive disorder, recurrent, moderate F33.1 ; Anxiety disorder, unspecified F41.9 and 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 [facility] [id number] [place] [address] 92793- 9923 Oct, Chronic constipation K59.09 and Obesity, unspecified obesity severity, unspecified obesity type E66.9 [facility] [address] [place] [address] 45671- 1438 Oct, Obesity, unspecified obesity severity, unspecified obesity type E66.9 ; Chronic constipation K59.09 and Anxiety disorder, unspecified F41.9 [facility] [address] [place] [address] 09124- 6626 Oct, [facility] [id number] [place] [address] 52578- 6572 Sep, Diabetes E11.9 ; Edema, unspecified type R60.9 ; Varicose vein of leg I83.90 and Obesity, unspecified obesity severity, unspecified obesity type E66.9 [facility] [address] [place] [address] 78664- 8512 Sep, Edema, unspecified type R60.9 ; Diabetes E11.9 and Knee pain , left M25.562 [facility] [id number] [place] [address] 63924- 8595 Sep, [facility] [id number] [place] [address] 65584- 0129 Sep, [facility] [id number] [place] [address] 21818- 3491 Sep, Major depressive disorder, recurrent, moderate F33.1 ; Generalized anxiety disorder F41.1 and Bipolar disorder, unspecified F31.9 [facility] [id number] [place] [address] 70387- 6060 Aug, Chondromalacia of left knee M94.262 [facility] [id number] [place] [address] 33354- 6692 Aug, Major depressive disorder, recurrent, moderate F33.1 ; Anxiety disorder, unspecified F41.9 and 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 [id number] [place] [address] 26645- 5815 July, [facility] [id number] [place] [address] 09772- 7859 July, Chronic constipation K59.09 [facility] [id number] [place] [address] 99866- 9197 Jun, [facility] [id number] [place] [address] 50911- 0330 15 Jun, 2015 [facility] [id number] [place] [address] 12160- 1010 14 Jun, 2015 Osteoarthritis of left knee M17.9 [facility] [id number] [place] [address] [phone] [address], [address] [facility] [id number] [place] [address] [phone] 13 Jun, 2015 Generalized anxiety disorder F41.1 ; Bipolar disorder, unspecified F31.9 and Major depressive disorder, recurrent, moderate F33.1 [facility] [id number] [place] [address] [phone] 07 Jun, 2015 Migraine [address].909 [facility] [id number] [place] [address] 68305- 5486 07 Jun, 2015 Left knee pain M25.562 ; Chronic constipation K59.09 ; Dry mouth R68.2 ; Yeast vaginitis B37.[address] [facility] [id number] [place] [address] 49580- 4566 Jun, [facility] [id number] [place] [address] 56870- 1075 May, [facility] [id number] [place] [address] 15585- 8342 May, [facility] [id number] [place] [address] 74149- 6591 May, [address] [id number] [place] [address] 00306- 5928 May, [place] [id number] [place] [address] 31081- 6297 May, Acute bronchitis with COPD J44.0 ; Knee pain, left M25.562 and Encounter for tobacco use cessation counseling Z71.6 [place] [id number] [place] [address] 77651- 4437 May, [place] [id number] [place] [address] 43350- 1833 Apr, Diabetes E11.9 ; TMJ (sprain of temporomandibular joint) S03.4XXA ; Tobacco abuse Z72.0 ; Migraine G43.909 and Anxiety F41.9 [place] [id number] [place] [address] 45594- 1700 Apr, Generalized anxiety disorder F41.1 and Bipolar disorder, unspecified F31.9 [place] [id number] [place] [address] 29769- 6023 Apr, Major depressive disorder, recurrent, moderate F33.1 ; Anxiety disorder, unspecified F41.9 and 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 [place] [id number] [place] [address] 93344- 8207 Apr, [place] [id number] [place] [address] 57009- 3710 Mar, [place] [id number] [place] [address] 01585- 1887 Feb, [place] [id number] [place] [address] 92606- 9778 Feb, Major depressive disorder, recurrent, moderate F33.1 ; Anxiety disorder, unspecified F41.9 and 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 [id number] [place] [address] 43848- 4685 Feb, Generalized anxiety disorder F41.1 and Bipolar disorder, unspecified F31.9 [facility] [id number] [place] [address] 77174- 1526 Jan, [facility] [id number] [place] [address] 10529- 4303 Jan, [facility] [id number] [place] [address] 60191- 5548 Jan, Bipolar disorder, unspecified F31.9 and Generalized anxiety disorder F41.1 [place] [id number] [place] [address] 56691- 5489 Dec, [facility] [address] 87363- 5866 Dec, Bipolar disorder, unspecified F31.9 and Generalized anxiety disorder F41.1 [place] [id number] [place] [address] 88516- 1423 Dec, Generalized anxiety disorder F41.1 and Major depressive disorder, recurrent, moderate F33.1 [facility] [id number] [place] [address] 42200- 5842 Oct, Headache 784.0 ; Cough 786.2 ; Vomiting and diarrhea 787.[address] [facility] [id number] [place] [address] 14971- 8498 Aug, [facility] [address] 80668- 3109 Aug, Headache 784.0 and Shortness of breath 786.05 [facility] [id number] [place] [address] 05098- 6753 Aug, [facility] [id number] [place] [address] [place] [address]- 5821 Aug, Migraine 346.90 [facility] [address] [id number] [place] [address]- 0386 14 Jun, 2014 [facility] [place] [facility] [address] [id number] [place] [address]- 9246 Jun, [facility] [address] [id number] [place] [address]- 1976 May, [facility] [place] [facility] [address] [id number] [place] [address]- 1178 May, [facility] [place] [facility] [address] [id number] [place] [address]- 7073 May, [facility] [place] [facility] [address] [id number] [place] [address]- 4605 May, [facility] [place] [facility] [address] [id number] [place] [address]- 6345 May, [facility] [place] [facility] [address] [id number] [place] [address]- 6228 May, [facility] [place] [facility] [address] [id number] [place] [address]- 6931 Apr, [facility] [place] [facility] [address] [facility] [id number] [place] [address]- 8811 Apr, [facility] [place] [facility] [address] [facility] [id number] [place] [address]- 0384 Apr, [facility] [place] [facility] [address] [id number] [place] [address]- 3337 Apr, [facility] [place] [facility] [address] [id number] [place] [address]- 1166 Apr, [facility] [place] [facility] [address] [id number] [place] 0226 Mar, [facility] [place] [facility] [address] [id number] [place] [address]- 3374 Mar, [facility] [place] [facility] [address] [id number] [place] [address]- 0627 Mar, [facility] [place] [facility] [address] [id number] [place] [address]- 7882 Mar, [facility] [place] [facility] [address] [id number] [place] [address]- 9038 Feb, [facility] [place] [facility] [address] [id number] [place] [address]- 6177 Feb, [facility] [place] [facility] [address] [id number] [place] [address]- 2712 Feb, [facility] [place] [facility] [address] [id number] [place] [address]- 3564 Feb, [facility] [place] [facility] [address] [id number] [place] [address]- 3016 Feb, [facility] [place] [facility] [address] [id number] [place] [address]- 6406 Feb, [facility] [place] [facility] [address] [id number] [place] [address]- 5024 Feb, [facility] [place] [facility] [address] [id number] [place] [address]- 5727 Feb, [facility] [place] [facility] [address] [id number] [place] [address]- 1285 Feb, [facility] [place] [facility] [address] [id number] [address]- 0375 Feb, [facility] [place] [facility] [address] [id number] [place] [address]- 1889 Feb, [facility] [place] [facility] [address] [id number] [place] [address]- 5371 Feb, [facility] [place] [facility] [address] [id number] [place] [address]- 8236 Jan, [facility] [place] [facility] [address] [id number] [place] [address]- 6866 Jan, [facility] [place] [facility] [address] [id number] [place] [address]- 9376 Dec, [facility] [place] [facility] [address] [id number] [place] [address]- 0570 Dec, [facility] [place] [facility] [address] [id number] [place] [address]- 7119 Dec, [facility] [place] [facility] [address] [id number] [place] [address]- 3437 Dec, [facility] [place] [facility] [address] [id number] [place] [address]- 1741 Dec, [facility] [place] [facility] [address] [id number] [place] [address]- 3618 Dec, [facility] [place] [facility] [address] [id number] [place] [address]- 4888 Sep, [facility] [place] [facility] [address] [id number] [place] [address]- 0669 Sep, [facility] [place] [facility] [address] [id number] [place] [address]- 6328 Sep, [facility] [place] [facility] [address] [id number] [place] [address]- 8117 Sep, [facility] [place] [facility] [address] [id number] [place] [address]- 7496 Sep, [facility] [place] [facility] [address] [id number] [place] [address]- 8243 Sep, [facility] [place] [facility] [address] [id number] [place] [address]- 1199 Sep, [facility] [place] [facility] [address] [id number] [place] [address]- 5413 Sep, [facility] [place] [facility] [address] [id number] [place] [address]- 5718 Sep, [facility] [place] [facility] [address] [id number] [place] [address]- 7609 Sep, [facility] [place] [facility] [address] [id number] [place] [address]- 0615 Aug, [facility] [place] [facility] [address] [id number] [place] [address]- 2028 Aug, [facility] [place] [facility] [address] [id number] [place] [address]- 5552 Aug, [facility] [place] [facility] [address] [id number] [place] [address]- 4590 Aug, [facility] [place] [facility] [address] [id number] [place] [address]- 8491 Aug, [facility] [place] [facility] [address] [id number] [place] [address]- 2442 Aug, [facility] [place] [facility] [address] [id number] [place] [address]- 1878 Aug, [facility] [place] [facility] [address] [id number] [place] [address]- 4077 Aug, [facility] [place] [facility] [address] [id number] [place] [address]- 1496 Aug, [facility] [place] [facility] [address] [id number] [place] [address]- 1201 Aug, [facility] [place] [facility] [address] [id number] [place] [address]- 1848 Aug, [facility] [place] [facility] [address] [id number] [place] [address]- 8446 Aug, [facility] [place] [facility] [address] [id number] [place] [address]- 3740 Aug, [facility] [place] [facility] [address] [id number] [place] [address]- 8302 July, [facility] [place] [facility] [address] [id number] [place] [address]- 9561 July, [facility] [place] [facility] [address] [id number] [place] [address]- 6703 July, [facility] [place] [facility] [address] [id number] [place] [address]- 3713 July, [facility] [place] [facility] [address] [id number] [place] 1177 July, [facility] [place] [facility] [address] [id number] [place] [address]- 4435 July, [facility] [place] [facility] [address] [id number] [place] 7151 July, [facility] [place] [facility] [address] [id number] [place] [address]- 0098 Jun, [facility] [place] [facility] [address] [id number] [place] [address]- 3478 Jun, [facility] [place] [facility] [address] [id number] [place] [address]- 0919 Jun, [facility] [place] [facility] [address] [id number] [place] [address]- 0285 Jun, [facility] [place] [facility] [address] [id number] [place] [address]- 7649 Jun, [facility] [place] [facility] [address] [id number] [place] [address]- 4748 Jun, [facility] [place] [facility] [address] [id number] [place] [address]- 9070 Jun, [facility] [place] [facility] [address] [id number] [place] [address]- 7059 May, [facility] [place] [facility] [address] [id number] [place] [address]- 3397 May, [facility] [place] [facility] [address] [id number] [place] [address]- 5273 May, [facility] [place] [facility] [address] [id number] [place] [address]- 0077 14 May, 2013 [facility] [place] [facility] [address] [id number] [place] [address]- 1185 13 May, 2013 [facility] [place] [facility] [address] [id number] [place] [address]- 6536 13 May, 2013 [facility] [place] [facility] [address] [id number] [place] [address]- 3713 10 May, 2013 [facility] [place] [facility] [address] [id number] [place] [address]- 7054 10 May, 2013 [facility] [place] [facility] [address] [id number] [place] [address]- 8285 07 May, 2013 [facility] [place] [facility] [address] [facility] [id number] [place] [address]- 5148 26 Apr, 2013 [facility] [place] [facility] [address] [facility] [id number] [place] [address]- 3722 26 Apr, 2013 [facility] [place] [facility] [address] [id number] [place] [address]- 3040 18 Apr, 2013 [facility] [place] [facility] [address] [facility] [id number] [place] [address]- 1807 15 Apr, 2013 [facility] [place] [facility] [address] [facility] [id number] [place] [address]- 8681 15 Apr, 2013 [facility] [place] [facility] [address] [facility] [id number] [place] [address]- 9497 11 Apr, 2013 [facility] [place] [facility] [address] [id number] [place] [address]- 8631 05 Apr, 2013 [facility] [place] [facility] [address] [id number] [place] [address]- 0268 05 Apr, 2013 [facility] [place] [facility] [address] [facility] [id number] [place] [address]- 9826 05 Apr, 2013 [facility] [place] [facility] [address] [facility] [id number] [place] [address]- 5726 Apr, [facility] [place] [facility] [address] [id number] [place] [address]- 4433 Mar, [facility] [place] [facility] [address] [id number] [place] [address]- 9371 Mar, [facility] [place] [facility] [address] [id number] [place] [address]- 1029 Mar, [facility] [place] [facility] [address] [id number] [place] [address]- 1703 Mar, [facility] [place] [facility] [address] [id number] [place] [address]- 3425 Mar, [facility] [place] [facility] [address] [id number] [place] [address]- 1442 Mar, [facility] [place] [facility] [address] [id number] [place] [address]- 9705 Mar, [facility] [place] [facility] [address] [id number] [place] [address]- 3153 Mar, [facility] [place] [facility] [address] [id number] [place] [address]- 8098 Feb, [facility] [place] [facility] [address] [id number] [place] [address]- 4468 Feb, [facility] [place] [facility] [address] [id number], [place] [address]- 2497 Jan, [facility] [place] [facility] [address] [id number], [place] [address]- 9363 18 Jan, 2013 [facility] [place] [facility] [address] [id number] [place] [address]- 7398 15 Jan, 2013 [facility] [place] [facility] [address] [id number] [place] [address]- 2317 15 Jan, 2013 [facility] [place] [facility] [address] [id number] [place] [address]- 0648 12 Jan, 2013 [facility] [place] [facility] [address] [id number] [place] [address]- 4686 Jan, [facility] [address] [id number] [place] [address]- 6944 Jan, [facility] [place] [facility] [address] [id number] [place] [address]- 3695 Jan, [facility] [address] [id number] [place] [address]- 9377 Dec, [facility] [place] [facility] [address] [id number] [place] [address]- 4550 Dec, [facility] [address] [id number] [place] [address]- 0265 Dec, [facility] [place] [facility] [address] [id number] [place] [address]- 3700 20 Nov, 2012 [facility] [place] [facility] [address] [id number] [place] [address]- 9873 Nov, [facility] [address] [id number] [place] [address]- 9215 12 Nov, 2012 [facility] [place] [facility] [address] [id number] [place] [address]- 3535 Nov, [facility] [address] [id number] [place] [address]- 8782 Nov, [facility] [place] [facility] [address] [id number] [place] [address]- 2540 Nov, [facility] [place] [facility] [address] [id number] [place] [address]- 3664 Oct, [facility] [place] [facility] [address] [id number] [place] [address]- 4192 Oct, [facility] [place] [facility] [address] [id number] [place] [address]- 9378 Sep, [facility] [place] [facility] [address] [id number] [place] [address]- 4270 Sep, [facility] [address] [id number] [place] [address]- 7275 Sep, [facility] [place] [facility] [address] [id number] [place] [address]- 4213 Sep, [facility] [place] [facility] [address] [id number] [place] [address]- 8439 Sep, [facility] [place] [facility] [address] [id number] [place] [address]- 3671 Sep, [facility] [place] [facility] [address] [id number] [place] [address]- 9957 Sep, [facility] [place] [facility] [address] [id number] [place] [address]- 5311 Aug, [facility] [place] [facility] [address] [id number] [place] [address]- 0177 Aug, [facility] [place] [facility] [address] [id number] [place] [address]- 1387 Aug, [facility] [place] [facility] [address] [id number] [place] [address]- 6951 Aug, [facility] [place] [facility] [address] [id number] [place] [address]- 4265 Aug, [facility] [place] [facility] [address] [id number] [place] [address]- 5605 Aug, [facility] [place] [facility] [address] [id number], [place] [address]- 3317 July, [facility] [place] [facility] [address] [id number] [place] [address]- 2764 July, [facility] [place] [facility] [address] [id number] [place] [address]- 9405 July, [facility] [place] [facility] [address] [id number] [place] 8049 July, [facility] [place] [facility] [address] [id number], [place] [address]- 4863 July, [facility] [address] [id number] [place] [address]- 2080 July, [facility] [address] [facility] [id number] [place] [address]- 3021 Jun, [facility] [address] [facility] [id number] [place] [address]- 6891 Jun, [facility] [address] [id number] [place] [address]- 2523 Jun, [facility] [address] [id number] [place] [address]- 4255 Jun, [facility] [id number] [place] [address]- 1592 Jun, [facility] [id number] [place] [address]- 6816 Jun, [facility] [address] [id number] [place] [address]- 6652 Jun, [facility] [address] [id number] [place] [address]- 6717 May, [facility] [address] [id number] [place] [address]- 2679 May, [facility] [address] [id number] [place] [address]- 9494 Apr, [facility] [place] [facility] [address] [facility] [id number], [place] [address] Apr, [facility] [place] [facility] [address] [id number] [place] [address] Apr, [facility] [place] [facility] [address] [facility] [id number], [place] [address] Apr, [facility] [address] [id number], [place] [address] Apr, [facility] [place] [facility] [address] [id number] [place] [address] 08 Apr, 2012 [facility] [place] [facility] [address] [id number] [place] [address] 07 Apr, 2012 [facility] [address] [id number] [place] [address] 07 Apr, 2012 [facility] [place] [facility] [address] [id number] [place] [address] Apr, [facility] [address] [id number] [place] [address] Apr, [facility] [place] [facility] [address] [id number] [place] [address] Apr, [facility] [place] [facility] [address] [id number] [place] [address] Mar, [facility] [address] [id number] [place] [address] Mar, [facility] [place] [facility] [address] [id number] [place] [address] Mar, [facility] [address] [id number] [place] [address] Mar, [facility] [place] [facility] [address] [id number], [place] [address] Mar, [facility] [place] [facility] [address] [id number], [place] [address] Mar, [facility] [place] [facility] [address] [id number] [place] [address] Mar, [facility] [place] [facility] [address] [id number], [place] [address] Mar, [facility] [place] [facility] [address] [id number] [place] [address] 47[address] Mar, [facility] [place] [facility] [address] [id number] [place] [address] 08 Mar, 2012 [facility] [address] [id number] [place] [address] 235[address] 08 Mar, 2012 [facility] [address] [id number] [place] [address] Mar, [facility] [address] [id number] [place] [address] Mar, [facility] [address] [id number] [place] [address] 8230 Feb, [facility] [address] [id number] [place] [address]97 Feb, [facility] [address] [id number] [place] [address]658 18 Feb, 2012 [facility] [address] [id number] [place] [address] 48[address] 18 Feb, 2012 [facility] [address] [id number] [place] [address] Feb, [facility] [address] [id number] [place] [address] 3226 11 Feb, 2012 [facility] [address] [id number] [place] [address] Feb, [facility] [address] [id number] [place] [address] 10 Feb, 2012 [facility] [place] [facility] [address] [id number] [place] [address] 2546 10 Feb, 2012 [facility] [place] [facility] [address] [id number] [place] [address]- [address]686 10 Feb, 2012 [facility] [place] [facility] [address] [id number] [place] [address] 72[address] 06 Feb, 2012 [facility] [place] [facility] [address] [id number] [place] [address] 05 Feb, 2012 [facility] [place] [facility] [address] [id number] [place] [address]6 Feb, [facility] [place] [facility] [address] [id number] [place] [address] 164[address] Feb, [facility] [place] [facility] [address] [id number] [place] [address] 1361 Feb, [facility] [place] [facility] [address] [id number] [place] [address] Jan, [facility] [place] [facility] [address] [id number] [place] [address]- [address] Jan, [facility] [place] [facility] [address] [id number] [place] [address]004 Jan, [facility] [place] [facility] [address] [id number] [place] [address]- 78[address] Jan, [facility] [place] [facility] [address] [id number] [place] [address]- [address]39 Dec, [facility] [place] [facility] [address] [id number] [place] [address]- 45[address] Dec, [facility] [place] [facility] [address] [id number] [place] [address]- 64[address] Dec, [facility] [place] [facility] [address] [id number] [place] [address]- 0024 Dec, [facility] [place] [facility] [address] [id number] [place] [address]- 1711 Dec, [facility] [place] [facility] [address] [id number] [place] [address]- [address] Dec, [facility] [place] [facility] [address] [id number] [place] [address]- 96[address] Dec, [facility] [place] [facility] [address] [id number] [place] [address]- 1069 Dec, [facility] [place] [facility] [address] [id number], [place] [address] 07 Dec, 2011 [facility] [place] [facility] [address] [id number] [place] [address]- [address]38 04 Dec, 2011 [facility] [place] [facility] [address] [id number] [place] [address]- 9336 03 Dec, 2011 [facility] [place] [facility] [address] [id number] [place] [address] 2546 25 Sep, 2011 [facility] [place] [facility] [address] [id number] [place] [address] 2548 24 Sep, 2011 [facility] [place] [facility] [address] [id number] [place] [address]- [address]134 20 Sep, 2011 [facility] [place] [facility] [address] [id number] [place] [address]- 1004 19 Sep, 2011 [facility] [place] [facility] [address] [id number] [place] [address] 4658 17 Sep, 2011 [facility] [place] [facility] [address] [id number] [place] [address]- [address]27 16 Sep, 2011 [facility] [place] [facility] [address] [id number] [place] [address] 14 Sep, 2011 [facility] [place] [facility] [address] [id number] [place] [address] 13 Sep, 2011 [facility] [place] [facility] [address] [id number], [place] [address] 12 Sep, 2011 [facility] [place] [facility] [address] [id number], [place] [address] 07 Sep, 2011 [facility] [place] [facility] [address] [id number] [place] [address]47 06 Sep, 2011 [facility] [place] [facility] [address] [id number], [place] [address] 06 Sep, 2011 [facility] [place] [facility] [address] [id number], [place] [address] 05 Sep, 2011 [facility] [place] [facility] [address] [id number] [place] [address] Oct, [facility] [place] [facility] [address] [id number] [place] [address] Oct, [facility] [place] [facility] [address] [id number] [place] [address] 2546 Oct, [facility] [place] [facility] [address] [id number] [place] [address] Oct, [facility] [place] [facility] [address] [id number] [place] [address] Oct, [facility] [place] [facility] [address] [id number] [place] [address] 69[address] Oct, [facility] [place] [facility] [address] [id number] [place] [address] Oct, [facility] [place] [facility] [address] [id number] [place] [address] Oct, [facility] [address] [id number] [place] [address] Oct, [facility] [place] [facility] [address] [id number] [place] [address] 9415 Oct, [facility] [address] [id number] [place] [address] Oct, [facility] [place] [facility] [address] [id number] [place] [address] Sep, [facility] [place] [facility] [address] [id number] [place] [address] Sep, [facility] [place] [facility] [address] [id number] [place] [address] Sep, [facility] [place] [facility] [address] [id number] [place] [address] Sep, [facility] [place] [facility] [address] [id number] [place] [address] Sep, [facility] [address] [id number] [place] [address] 119[address] Sep, [facility] [place] [facility] [address] [id number] [place] [address] 116[address] Aug, [facility] [place] [facility] [address] [id number] [place] [address] July, [facility] [place] [facility] [address] [id number] [place] [address] July, [facility] [place] [facility] [address] [id number] [place] [address]165 Jun, [facility] [place] [facility] [address] [id number] [place] [address]- 6286 Jun, [facility] [place] [facility] [address] [id number] [place] [address] Jun, [facility] [place] [facility] [address] [id number] [place] [address] 1386 Jun, [facility] [place] [facility] [address] [id number] [place] [address] 78[address] Jun, [facility] [place] [facility] [address] [id number] [place] [address] 1759 Jun, [facility] [place] [facility] [address] [id number] [place] [address] 8029 Jun, [facility] [place] [facility] [address] [id number] [place] [address] 3049 Jun, [facility] [place] [facility] [address] [id number] [place] [address] 0421 Jun, [facility] [place] [facility] [address] [id number] [place] [address] 1219 Jun, [facility] [place] [facility] [address] [id number] [place] [address] Jun, [facility] [place] [facility] [address] [id number] [place] [address]959 19 May, 2011 [facility] [address] [id number] [place] [address] 2546 16 May, 2011 [facility] [place] [facility] [address] [id number] [place] [address] 7826 14 May, 2011 [facility] [place] [facility] [address] [id number] [place] [address] 6656 06 May, 2011 [facility] [place] [facility] [address] [id number] [place] [address] 6[address] 28 Apr, 2011 [facility] [place] [facility] [address] [id number] [place] [address] 4036 Apr, [facility] [place] [facility] [address] [id number] [place] [address] 2546 Apr, [facility] [address] [id number] [place] [address] 3735 Apr, [facility] [place] [facility] [address] [id number] [place] [address] 5635 Apr, [facility] [place] [facility] [address] [id number] [place] [address]276 Apr, [facility] [address] [id number] [place] [address] 120[address] Apr, [facility] [place] [facility] [address] [id number] [place] [address] 2546 Apr, [facility] [place] [facility] [address] [id number] [place] [address] 2545 Mar, [facility] [place] [facility] [address] [id number] [place] [address]- 8636 Mar, [facility] [place] [facility] [address] [id number] [place] [address]- 2546 Mar, [facility] [place] [facility] [address] [id number] [place] [address] 9072 Mar, [facility] [address] [id number] [place] [address]- 4294 17 Mar, 2011 [facility] [place] [facility] [address] [id number] [place] [address]- 6497 Mar, [facility] [place] [facility] [address] [id number] [place] [address]- 2332 Mar, [facility] [place] [facility] [address] [id number] [place] [address]- 1425 Mar, [facility] [address] [id number] [place] [address]- [address]303 Mar, [facility] [place] [facility] [address] [id number] [place] [address]- 7880 Mar, [facility] [address] [id number] [place] [address]- 7582 Mar, [facility] [address] [id number] [place] [address]- 8277 Mar, [facility] [place] [facility] [address] [id number] [place] [address]- 6627 Mar, [facility] [place] [facility] [address] [id number] [place] [address]- 3627 Mar, [facility] [place] [facility] [address] [id number] [place] [address]- 7336 Mar, [facility] [place] [facility] [address] [id number], [place] [address]853 Mar, [facility] [place] [facility] [address] [id number] [place] [address]- 4940 Feb, [facility] [place] [facility] [address] [id number] [place] [address]- 7066 Feb, [facility] [place] [facility] [address] [id number] [place] [address]- 4058 Feb, [facility] [place] [facility] [address] [id number], [place] [address] Jan, [facility] [id number] [address] Jan, [facility] [id number] [address] Jan, [facility] [id number] [address] 97[address] Dec, [facility] [id number] [address]60 Dec, [facility] [id number] [address] 4213 Nov, [facility] [id number] [address] 2705 Oct, [facility] [id number] [address] 3496 Oct, [facility] [id number] [address]472 Oct, [facility] [id number] [address]28 Sep, [facility] [id number] [address] Apr, [facility] [id number], [place] [address] Feb, [facility] [id number], [place] [address] Jan, IMMUNIZATIONS No Known Immunizations SOCIAL HISTORY Never Assessed REASON FOR VISIT release for work PLAN OF CARE VITAL SIGNS MEDICATIONS Unknown [...] 2/2 Benzos OD, pneumonia MRSA, [facility]RA, Hypokalemia-- [facility] 12/20/2015 Hospitalization History COPD exacerbation, Asthma-[facility] 09/21/16 Hospitalization History COPD-[facility] 12/30/2016 Hospitalization History [facility]-last around 2006 or so. Hospitalization History for COPD x2 Mar 2017 Hospitalization History Upper GI bleed at apr 2017 Hospitalization History [facility]- COPD Exacerbation, diarrhea 05/23/2017 Hospitalization History COPD exacerbation-[facility] 06/13/17
[2017-09-19] MEDS ORDERED: ASPIRIN E.C. 81 MG (ECOTRIN) TAB PO SCH (09:00)
== END 2017-09-18 18:15 | disposition home or self-care (01) ==
LOC: CATH 09:59 → SURG 13:36 → ICU 15:02 → SURG 15:02 → UNDOFXSDCSVC 15:02 → CATH 18:15
PROVIDERS: ATTEND Internal Medicine Interventional Cardiology
DX: I25.10 Atherosclerotic heart disease of native coronary artery without angina pectoris (principal); I42.9 Cardiomyopathy, unspecified; I50.21 Acute systolic (congestive) heart failure; I11.0 Hypertensive heart disease with heart failure; I08.1 Rheumatic disorders of both mitral and tricuspid valves; J44.9 Chronic obstructive pulmonary disease, unspecified; E11.9 Type 2 diabetes mellitus without complications; G47.10 Hypersomnia, unspecified; F17.210 Nicotine dependence, cigarettes, uncomplicated; Z79.82 Long term (current) use of aspirin; Z79.899 Other long term (current) drug therapy
CPT/HCPCS: 36415; 80053; 85027; 85610; 85730; 87081; 93458

== ENCOUNTER 2017-11-19 11:07 | Inpatient (IN) | payer OTHER ==
[~2017-11-19] VITALS: Ht 175.3 cm; Wt 98.9 kg
[2017-11-19] VITALS (19 sets, daily range): BP systolic 87–149; BP diastolic 25–132
[~2017-11-19 11:07] MED LIST changes: -BENZ-13 PO; +BENZ100C18 PO; +CLON1TAB13 PO; -CLON1TAB4 PO
[2017-11-19] MEDS ORDERED: RT-ALBUTEROL SULF 2.5 MG/3 ML PRE-MIX VIAL INH STA (11:33)
[2017-11-19 11:45] LABS: BASOPHILS % (AUTO) 0 % (0-10); EOSINOPHILS # (AUTO) 0.2 10^3/uL (0.0-0.3); EOSINOPHILS % (AUTO) 2 % (0-10); HEMATOCRIT 41 % (35-52); HEMOGLOBIN 13.5 G/DL (11.5-16.0); LYMPHOCYTES # (AUTO) 3.2 X 10^3 (1.0-4.0); LYMPHOCYTES % (AUTO) 34 % (12-44); MEAN CORPUSCULAR HEMOGLOBIN 27 PG (25-34); MEAN CORPUSCULAR HGB CONC 33 G/DL (32-36); MEAN CORPUSCULAR VOLUME 80 FL (80-99); MEAN PLATELET VOLUME 10.5 FL (7.4-10.4); MONOCYTES # (AUTO) 0.7 X 10^3 (0.0-1.0); MONOCYTES % (AUTO) 8 % (0-12); NEUTROPHILS # (AUTO) 5.1 X 10^3 (1.8-7.8); NEUTROPHILS % (AUTO) 56 % (42-75); PLATELET COUNT 287 10^3/uL (130-400); RED CELL DISTRIBUTION WIDTH 18.4 % (10.0-14.5); WHITE BLOOD COUNT 9.3 10^3/uL (4.3-11.0)
[2017-11-19] MEDS ORDERED: methylPREDNISolone 125 MG (Solu-MEDROL) VIAL IVP ONE (11:45)
[2017-11-19] MEDS ORDERED: RT-ALBUTEROL/IPRATROPIUM 3 ML (DUONEB) VIAL INH ONE (11:45)
[2017-11-19 12:05] LABS: ALANINE AMINOTRANSFERASE 14 U/L (0-55); ALBUMIN 3.7 GM/DL (3.2-4.5); ALKALINE PHOSPHATASE 57 U/L (40-136); BILIRUBIN,TOTAL 0.5 MG/DL (0.1-1.0); BUN/CREATININE RATIO 12; CALCIUM 9.7 MG/DL (8.5-10.1); CARBON DIOXIDE 24 MMOL/L (21-32); CHLORIDE 107 MMOL/L (98-107); CREATININE SERUM 0.82 MG/DL (0.60-1.30); GFR ESTIMATED > 60; GLUCOSE 114 MG/DL (70-105); POTASSIUM 3.8 MMOL/L (3.6-5.0); SODIUM 139 MMOL/L (135-145); TOTAL PROTEIN 5.9 GM/DL (6.4-8.2)
--- NOTE | 2017-11-19 12:12 | Diagnostic Imaging Report ---
INDICATION: Difficulty breathing. Time of exam 12:02 PM Correlation is made with prior study from 09/08/2017. The heart is enlarged and stable. The lungs do show some hyperinflation. There is linear scarring or atelectasis left midlung. No infiltrates are seen. No effusion or pneumothorax is detected. IMPRESSION: COPD. No acute features detected. Dictated by: Dictated on workstation # [id number]
[2017-11-19] MEDS ORDERED: LORazepam INJ 2 MG/ML (ATIVAN) VIAL IVP ONE ×2 (12:15→12:30)
[2017-11-19] MEDS ORDERED: NS IV 1000 ML 1,000 ML IV ONE (12:16)
--- OUTSIDE RECORDS SUMMARY | 2017-11-19 12:23 | XMS REPORT ---
Author Author TIMOTHY LARIOS Organization [facility] Address [address] [place] [address] Care Team Providers Care Granulator Tender Name Role Phone TIMOTHY LARIOS Unavailable PROBLEMS Type Condition ICD9-CM Code BUC56-IE Code Onset Dates Condition Status SNOMED Code Problem Bipolar disorder with depression F31.30 Active 92710581 Problem Other emphysema J43.8 Active 61624948 Problem Migraine without aura and without status migrainosus, not intractable G43.009 Active 302189720 Problem Anxiety F41.9 Active 35741553 Problem COPD with exacerbation J44.1 Active 161913707 Problem Methamphetamine use disorder, moderate, 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 Active 81365665 Problem Chronic bronchitis, unspecified chronic bronchitis type J42 Active 13201657 Problem Intractable cyclical vomiting with nausea G43.A1 Active 30678333 Problem Diabetes E11.9 Active 353151096 Problem 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 Active Problem Tobacco abuse Z72.0 Active 65277687 Problem Examination of eyes and vision V72.0 Active 822933355 Problem Chronic constipation K59.09 Active 991920706 Problem Memory loss R41.3 Active 17341791 Problem Migraine G43.909 Active 50706107 Problem Bipolar disorder, unspecified F31.9 Active 06954302 Problem TMJ (sprain of temporomandibular joint) S03.4XXA Active 50749165 Problem Generalized anxiety disorder F41.1 Active 05990319 ALLERGIES No Information ENCOUNTERS Encounter Location Date Diagnosis [facility] [id number] [place] [address] 81238- 3527 Sep, COPD with exacerbation J44.1 and Anxiety F41.9 [facility] [address] [address] 65[address] Sep, [facility] [address] [address] 5012 Sep, [facility] [id number] [address] 6[address] Sep, [facility] [address] [address] 6870 Sep, Acute congestive heart failure, unspecified heart failure type I50.9 and Anxiety disorder, unspecified F41.9 [facility] [id number] [place] [address] 82959- 8751 Sep, Heart failure, unspecified HF chronicity, unspecified heart failure type I50.9 [facility] [id number] [place] [address] 37025- 9910 Sep, [facility] [id number] [place] [address] 11960- 8338 Aug, Chronic obstructive pulmonary disease with acute exacerbation J44.1 [facility] [id number] [address] 1802 Aug, [facility] [id number] [place] [address] 25689- 2929 Aug, [facility] [id number] [address] 7316 July, [facility] [address] [address] 8719 July, [facility] [id number] [place] [address] 90440- 9385 July, Diabetes E11.9 and Chronic obstructive pulmonary disease with acute exacerbation J44.1 [facility] [id number] [place] [address] 75139- 2290 Jun, Chronic obstructive pulmonary disease with acute exacerbation J44.1 ; Diabetes E11.9 and Tobacco abuse Z72.0 [facility] [address] [address]- 7871 Jun, [facility] [address] [address]- 0402 Jun, [facility] [id number] [place] [address] 20872- 1078 May, [facility] [id number] [place] [address] 35430- 7313 May, [facility] [id number] [place] [address] 13840 -9262 17 May, 2017 [facility] [id number] [place] [address] 84914- 8655 16 May, 2017 [place] [id number] [place] [address] 02847- 1159 15 May, 2017 [place] [id number] [place] [address] 51689- 0319 14 May, 2017 Diarrhea, unspecified type R19.7 and Intractable cyclical vomiting with nausea G43.A1 [facility] [id number] [place] [address] 40680- 0502 12 May, 2017 [place] [id number] [place] [address] 05266- 7431 05 May, 2017 [facility] [id number] [place] [address] 42997- 9353 28 Apr, 2017 COPD exacerbation J44.1 ; Esophageal candidiasis B37.81 ; Other acute gastritis with hemorrhage K29.01 and Acute posthemorrhagic anemia D62 [facility] [address] [place] [address] 65967- 7716 Apr, Viral illness B34.9 and COPD exacerbation J44.1 [facility] [id number] [place] [address] 18601 -6893 Apr, Shortness of breath R06.02 and Pneumonia of both lower lobes due to infectious organism J18.9 [facility] [id number] [place] [address] 02657 -1256 Mar, COPD with acute exacerbation J44.1 [facility] [address] [address]- 6143 Mar, Chronic obstructive pulmonary disease with acute exacerbation J44.1 and Diabetes E11.9 [facility] [address] [address]- 7627 Mar, [facility] [id number] [place] [address] 34729- 2037 Mar, [facility] [id number] [place] [address] 70015 -7529 Mar, COPD exacerbation J44.1 [facility] [id number] [place] [address] 22139- 9999 Mar, [facility] [id number] [place] [address] 50940- 5790 Mar, Migraine G43.909 ; Hypokalemia E87.6 and Type 2 diabetes mellitus without complications E11.9 [facility] [id number] [place] [address] 38413- 6820 Feb, [facility] [id number] [place] [address] 31530- 7705 Feb, [facility] [id number] [place] [address] 97505- 5107 Feb, Methamphetamine use disorder, moderate, 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 ; Major depressive disorder, recurrent, moderate F33.1 ; Anxiety disorder, unspecified F41.9 and Tobacco abuse Z72.0 [facility] [id number] [place] [address] 93715- 9027 30 Jan, 2017 Major depressive disorder, recurrent, moderate F33.1 [facility] [address] [place] [address] 78861- 3339 16 Jan, 2017 [facility] [id number] [place] [address] 09773- 8704 Jan, [place] [address] [address]- 2023 Jan, Major depressive disorder, recurrent, moderate F33.1 [facility] [id number] [place] [address] 24165- 7971 Jan, Major depressive disorder, recurrent, moderate F33.1 ; Anxiety disorder, unspecified F41.9 ; Methamphetamine use disorder, moderate, 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 and Tobacco abuse Z72.0 [facility] [id number] [place] [address] 06242- 5530 Jan, [facility] [id number] [place] [address] 19678- 3594 Jan, Chronic obstructive pulmonary disease with acute exacerbation J44.1 and Diabetes E11.9 [place] [id number] [place] [address] 79722- 8601 Jan, [place] [id number] [place] [address] 94281- 0873 Jan, [facility] [id number] [place] [address] 36987- 2187 Dec, Acute respiratory failure with hypoxia J96.01 ; Chronic bronchitis, unspecified chronic bronchitis type J42 and Tobacco use Z72.0 [facility] [id number] [place] [address] 12884- 0726 Dec, [facility] [id number] [place] [address] [id number] Nov, Dental caries K02.9 and Dental examination Z01.20 [place] [id number] [place] [address] 16501- 2419 Nov, Major depressive disorder, recurrent, moderate F33.1 ; Anxiety disorder, unspecified F41.9 and 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 [facility] [address] [place] [address] [id number] Oct, Dental examination Z01.20 [place] [address] [address]- 8672 Oct, [facility] [id number] [place] [address] 64617- 2179 Oct, Diabetes E11.9 and Thrush B37.0 [facility] [id number] [place] [address] 60483- 3985 Oct, [facility] [id number] [place] [address] 42406- 5647 Oct, [facility] [id number] [place] [address] 15568- 8906 Oct, [facility] [id number] [place] [address] 64118- 1234 Sep, Major depressive disorder, recurrent, moderate F33.1 ; Anxiety disorder, unspecified F41.9 and Bipolar disorder, unspecified F31.9 [facility] [id number] [place] [address] 81204- 0757 Sep, Acute exacerbation of chronic obstructive pulmonary disease (COPD) J44.1 and Migraine G43.909 [facility] [id number] [place] [address] 19507- 9966 Sep, [facility] [id number] [place] [address] [id number] Sep, [facility] [id number] [place] [address] 06183- 9471 Sep, Acute exacerbation of chronic obstructive pulmonary disease (COPD) J44.1 [facility] [address] [address] -3601 Sep, Acute exacerbation of chronic obstructive pulmonary disease (COPD) J44.1 [facility] [address] [address]- 7387 Aug, [facility] [id number] [place] [address] 34807- 1095 Aug, Major depressive disorder, recurrent, moderate F33.1 ; Anxiety disorder, unspecified F41.9 and 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 [facility] [id number] [place] [address] 17804- 5069 19 Aug, 2016 Wheezing R06.2 ; Non morbid obesity due to excess calories E66.09 ; Migraine without aura and without status migrainosus, not intractable G43.009 and Tobacco abuse Z72.0 [facility] [id number] [place] [address] [id number] [phone] Aug, 2016 Encounter for dental examination Z01.20 [facility] [id number] [place] [address] 15362- 1062 02 Aug, 2016 Major depressive disorder, recurrent, moderate F33.1 ; Anxiety disorder, unspecified F41.9 and 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 [facility] [id number] [place] [address] 29816- 6814 July, [facility] [id number] [place] [address] 49499- 7995 July, [facility] [id number] [place] [address] 61784- 1055 July, [facility] [id number] [place] [address] 40859- 0982 July, Diabetes E11.9 [facility] [id number] [place] [address] 65809- 6577 Jun, Major depressive disorder, recurrent, moderate F33.1 [facility] [id number] [place] [address] 74372- 9567 Jun, Major depressive disorder, recurrent, moderate F33.1 ; 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 ; Generalized anxiety disorder F41.1 and Bipolar disorder, unspecified F31.9 [facility] [id number] [place] [address] 91715- 2525 Jun, Diabetes E11.9 ; Migraine G43.909 ; Thrush B37.0 and Wheezing R06.2 [facility] [id number] [place] [address] [id number] Jun, Dental examination Z01.20 [facility] [id number] [place] [address] 20221- 3074 Jun, [facility] [address] [id number]- 2867 Jun, Major depressive disorder, recurrent, moderate F33.1 ; Anxiety disorder, unspecified F41.9 and 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 [facility] [id number] [place] [address] 15116- 3951 Jun, [facility] [id number] [place] [address] 10525- 1565 Jun, Wheezing R06.2 [facility] [address] [id number] Jun, Dental caries K02.9 [facility] [id number] [place] [address] 04841- 0479 Jun, Major depressive disorder, recurrent, moderate F33.1 ; Anxiety disorder, unspecified F41.9 and 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 [facility] [id number] [place] [address] 42505- 5437 Jun, RLQ abdominal pain R10.31 ; Diabetes E11.9 ; Obesity, unspecified obesity severity, unspecified obesity type E66.9 ; Wheezing R06.2 and Abnormal urinalysis R82.90 [facility] [id number] [place] [address] 24579- 4996 May, [place] [id number] [place] [address] 22439- 1301 May, Well woman exam Z01.419 ; Breast cancer screening Z12.39 ; Cervical cancer screening Z12.4 ; Urinary frequency R35.0 ; Edema, unspecified type R60.9 and Chronic constipation K59.09 [facility] [id number] [place] [address] 68562- 3477 08 May, 2016 Major depressive disorder, recurrent, moderate F33.1 ; Anxiety disorder, unspecified F41.9 and 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 [facility] [id number] [place] [address] [id number] May, Dental examination Z01.20 [facility] [id number] [place] [address] 52513- 7577 May, [facility] [address] 50795- 3906 May, [facility] [id number] [place] [address] 63324- 0214 May, Chronic constipation K59.09 [facility] [address] 39743- 4420 Apr, [facility] [id number] [place] [address] 35545- 4426 Apr, Major depressive disorder, recurrent, moderate F33.1 ; Anxiety disorder, unspecified F41.9 and 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 [facility] [id number] [place] [address] 30146- 9012 Apr, [facility] [id number] [place] [address] 45276- 5226 Mar, Major depressive disorder, recurrent, moderate F33.1 [facility] [id number] [place] [address] 55459- 4856 Mar, Major depressive disorder, recurrent, moderate F33.1 ; Generalized anxiety disorder F41.1 and Bipolar I disorder, most recent episode depressed with anxious distress F31.30 [facility] [id number] [place] [address] 99923- 8937 Mar, Diabetes E11.9 ; Non morbid obesity due to excess calories E66.09 ; Breast cancer screening Z12.39 and Encounter for immunization Z23 [place] [address] 71481- 0891 Mar, Major depressive disorder, recurrent, moderate F33.1 ; Anxiety disorder, unspecified F41.9 and 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 [place] [id number] [place] [address] 99809- 8930 Mar, [place] [id number] [place] [address] 96003- 5439 Feb, Major depressive disorder, recurrent, moderate F33.1 ; Anxiety disorder, unspecified F41.9 and 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 [place] [id number] [place] [address] 47287- 7879 Feb, [place] [id number] [place] [address] 78347- 8910 Feb, [place] [id number] [place] [address] 31839- 0425 Jan, Major depressive disorder, recurrent, moderate F33.1 ; Generalized anxiety disorder F41.1 and Bipolar disorder, current episode depressed, severe, without psychotic features F31.4 [place] [id number] [place] [address] 75467- 8548 Jan, Major depressive disorder, recurrent, moderate F33.1 ; Anxiety disorder, unspecified F41.9 and 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 [place] [id number] [place] [address] 72840- 6130 Jan, Bronchitis J40 [facility] [id number] [place] [address] 72668- 6787 Jan, [place] [id number] [place] [address] 56029- 4020 Jan, [facility] [id number] [address]- 5889 Jan, Elbow injury, right, initial encounter S59.901A ; Multiple contusions T14.8 and Cervical strain, acute, initial encounter S16.1XXA [facility] [address] [address]- 6494 Dec, Major depressive disorder, recurrent, moderate F33.1 ; Generalized anxiety disorder F41.1 and Bipolar disorder with depression F31.30 [facility] [address] [address]- 0301 Dec, [facility] [address] [facility] [id number] [place] [address] 88338- 4697 Dec, [facility] [id number] [place] [address] 39848- 1120 Dec, [facility] [address] [address]- 4136 Dec, [facility] [address] [address]- 6675 Dec, Yeast infection B37.9 [place] [id number] [place] [address] 73182- 0078 Dec, Pneumonia of both lungs due to methicillin resistant Staphylococcus aureus (MRSA), unspecified part of lung J15.212 and Benzodiazepine overdose, accidental or unintentional, subsequent encounter T42.4X1D [facility] [id number] [address]- 8290 Dec, [facility] [address] [address]- 8603 Dec, [facility] [id number] [place] [address] 51746- 4243 Dec, Knee pain, left M25.562 and Edema, unspecified type R60.9 [facility] [address] [place] [address] 38632- 5900 Dec, [facility] [id number] [place] [address] 28076- 5742 Dec, Anxiety disorder, unspecified F41.9 and Bipolar disorder, unspecified F31.9 [facility] [id number] [place] [address] 05159- 7057 Nov, Major depressive disorder, recurrent, moderate F33.1 ; Anxiety disorder, unspecified F41.9 and 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 [place] [id number] [place] [address] 89123- 7081 Nov, [place] [id number] [place] [address] 06059- 5904 Nov, Migraine without aura and without status migrainosus, not intractable G43.009 [place] [id number] [place] [address] 95372- 6708 Nov, Migraine G43.909 [place] [id number] [place] [address] 67819- 2258 Nov, [facility] [id number] [place] [address] 37366- 2976 Nov, Major depressive disorder, recurrent, moderate F33.1 ; Anxiety disorder, unspecified F41.9 and 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 [place] [id number] [place] [address] 34854- 6899 Oct, Chronic constipation K59.09 and Obesity, unspecified obesity severity, unspecified obesity type E66.9 [place] [id number] [place] [address] 44698- 1846 Oct, Obesity, unspecified obesity severity, unspecified obesity type E66.9 ; Chronic constipation K59.09 and Anxiety disorder, unspecified F41.9 [place] [id number] [place] [address] 26240- 6420 Oct, [place] [address] [place] [address] 24540- 4836 Sep, Diabetes E11.9 ; Edema, unspecified type R60.9 ; Varicose vein of leg I83.90 and Obesity, unspecified obesity severity, unspecified obesity type E66.9 [place] [id number] [place] [address] 58535- 8920 Sep, Edema, unspecified type R60.9 ; Diabetes E11.9 and Knee pain , left M25.562 [place] [id number] [place] [address] 94082- 4405 Sep, [place] [address] 69510- 5329 Sep, [place] [id number] [place] [address] 47059- 5017 Sep, Major depressive disorder, recurrent, moderate F33.1 ; Generalized anxiety disorder F41.1 and Bipolar disorder, unspecified F31.9 [place] [id number] [place] [address] 06389- 9793 Aug, Chondromalacia of left knee M94.262 [place] [id number] [place] [address] 84093- 4483 Aug, Major depressive disorder, recurrent, moderate F33.1 ; Anxiety disorder, unspecified F41.9 and 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 [place] [address] [place] [address] 67714- 4637 Aug, [place] [id number] [place] [address] 06639- 0710 Aug, Osteoarthritis of left knee M17.9 [place] [id number] [place] [address] 95654- 5223 Aug, [place] [id number] [place] [address] 30704- 5516 July, Major depressive disorder, recurrent, moderate F33.1 ; Anxiety disorder, unspecified F41.9 and 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 [facility] [id number] [place] [address] [id number] July, [facility] [address] [id number] [place] [address] [phone] July, Chronic constipation K59.09 [facility] [address] [id number] [phone] Jun, [facility] [address] [phone]- [phone] Jun, [place] [address] [address]- 3858 14 Jun, 2015 Osteoarthritis of left knee M17.9 [place] [address] 14508- 0092 Jun, [facility] [id number] [place] [address] 94961- 1060 Jun, Generalized anxiety disorder F41.1 ; Bipolar disorder, unspecified F31.9 and Major depressive disorder, recurrent, moderate F33.1 [facility] [id number] [place] [address] 32070- 3292 Jun, Migraine G43.909 [place] [id number] [place] [address] 40147- 5809 Jun, Left knee pain M25.562 ; Chronic constipation K59.09 ; Dry mouth R68.2 ; Yeast vaginitis B37.3 and Memory loss R41.3 [place] [address] 76349- 4434 Jun, [facility] [id number] [place] [address] 42682- 0775 May, [facility] [id number] [place] [address] 70866- 9849 May, [facility] [id number] [address] 6036 May, [facility] [id number] [place] [address] 11477- 3734 May, [facility] [id number] [place] [address] 14525- 7866 May, Acute bronchitis with COPD J44.0 ; Knee pain, left M25.562 and Encounter for tobacco use cessation counseling Z71.6 [place] [id number] [place] [address] 36695- 0179 May, [place] [id number] [place] [address] 82787- 6326 Apr, Diabetes E11.9 ; TMJ (sprain of temporomandibular joint) S03.4XXA ; Tobacco abuse Z72.0 ; Migraine G43.909 and Anxiety F41.9 [place] [id number] [place] [address] 52165- 1664 Apr, Generalized anxiety disorder F41.1 and Bipolar disorder, unspecified F31.9 [place] [id number] [place] [address] 56880- 7546 Apr, Major depressive disorder, recurrent, moderate F33.1 ; Anxiety disorder, unspecified F41.9 and 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 [place] [id number] [place] [address] 42103- 2829 Apr, [place] [id number] [place] [address] 23679- 4945 Mar, [place] [id number] [place] [address] 10553- 1789 Feb, [place] [id number] [place] [address] 61479- 5240 Feb, Major depressive disorder, recurrent, moderate F33.1 ; Anxiety disorder, unspecified F41.9 and 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 [place] [id number] [place] [address] 46208- 3141 Feb, [place] [id number] [place] [id number]- 2667 Feb, Generalized anxiety disorder F41.1 and Bipolar disorder, unspecified F31.9 [place] [address] 03904- 6561 Jan, [place] [address] 08734- 8514 Jan, [place] [address] 48080- 3187 Jan, Bipolar disorder, unspecified F31.9 and Generalized anxiety disorder F41.1 [place] [address] 16865- 7625 Dec, [place] [address] [address] [id number] [place] [address] 54558- 0107 Dec, Bipolar disorder, unspecified F31.9 and Generalized anxiety disorder F41.1 [place] [address] [id number] [place] [address] 54674- 7295 Dec, Generalized anxiety disorder F41.1 and Major depressive disorder, recurrent, moderate F33.1 [place] [address] [id number] [place] [address] 93904- 7442 Oct, Headache 784.0 ; Cough 786.2 ; Vomiting and diarrhea 787.03 and Dysuria 788.1 [place] [address] 01293- 4161 Aug, [address] 44021- 8439 Aug, Headache 784.0 and Shortness of breath 786.05 [place] [address] 65478- 6077 Aug, [facility] [place] [facility] [address] [facility] [id number] [place] [address]- 7933 Aug, Migraine 346.90 [facility] [place] [facility] [address] [id number] [place] [address]- 9020 14 Jun, 2014 [facility] [place] [facility] [address] [facility] [id number] [place] [address]- 7727 Jun, [facility] [place] [facility] [address] [id number] [place] [address]- 1031 May, [facility] [place] [facility] [address] [id number] [place] [address]- 0496 May, [facility] [place] [facility] [address] [facility] [id number] [place] [address]- 7346 May, [facility] [place] [facility] [address] [facility] [id number] [place] [address]- 1569 May, [facility] [place] [facility] [address] [facility] [id number] [place] [address]- 1980 May, [facility] [place] [facility] [address] [facility] [id number] [place] [address]- 1898 May, [facility] [place] [facility] [address] [facility] [id number] [place] [address]- 3911 Apr, [facility] [place] [facility] [address] [facility] [id number] [place] [address]- 7515 Apr, [facility] [place] [facility] [address] [facility] [id number] [address]- 6369 Apr, [facility] [place] [facility] [address] [facility] [id number] [place] [address]- 6380 Apr, [facility] [place] [facility] [address] [facility] [id number] [address]- 9436 Apr, [facility] [place] [facility] [address] [facility] [id number] [address]- 5748 Mar, [facility] [place] [facility] [address] [id number] [place] [address]- 7304 Mar, [facility] [place] [facility] [address] [id number] [place] [address]- 9536 Mar, [facility] [place] [facility] [address] [id number] [place] [address]- 1820 Mar, [facility] [place] [facility] [address] [id number] [place] [address]- 8659 Feb, [facility] [place] [facility] [address] [id number] [place] [address]- 0711 Feb, [facility] [place] [facility] [address] [id number] [place] [address]- 0196 Feb, [facility] [place] [facility] [address] [id number] [place] [address]- 6563 Feb, [facility] [place] [facility] [address] [id number] [place] [address]- 8358 Feb, [facility] [place] [facility] [address] [id number] [place] [address]- 8824 Feb, [facility] [place] [facility] [address] [id number] [place] [address]- 3087 Feb, [facility] [place] [facility] [address] [id number] [place] [address]- 2461 Feb, [facility] [place] [facility] [address] [id number] [address]- 5423 Feb, [facility] [place] [facility] [address] [id number] [place] [address]- 3308 Feb, [facility] [place] [facility] [address] [id number] [place] 1817 Feb, [facility] [place] [facility] [address] [id number] [place] [address]- 3827 Feb, [facility] [place] [facility] [address] [id number] [address]- 8878 Jan, [facility] [place] [facility] [address] [id number] [place] [address]- 0809 Jan, [facility] [place] [facility] [address] [id number] [place] [address]- 9152 Dec, [facility] [place] [facility] [address] [id number] [place] [address]- 3465 Dec, [facility] [place] [facility] [address] [id number] [place] [address]- 4294 Dec, [facility] [place] [facility] [address] [id number] [place] [address]- 5128 Dec, [facility] [place] [facility] [address] [id number] [place] [address]- 2372 Dec, [facility] [place] [facility] [address] [id number] [place] [address]- 9168 Dec, [facility] [place] [facility] [address] [id number] [place] [address]- 8250 Sep, [facility] [place] [facility] [address] [id number] [place] [address]- 7444 Sep, [facility] [place] [facility] [address] [id number] [place] [address]- 0618 Sep, [facility] [place] [facility] [address] [id number] [place] [address]- 5994 Sep, [facility] [place] [facility] [address] [id number] [place] [address]- 5458 Sep, [facility] [place] [facility] [address] [id number] [place] [address]- 9737 Sep, [facility] [place] [facility] [address] [id number] [place] [address]- 5979 Sep, [facility] [place] [facility] [address] [id number] [place] [address]- 2604 Sep, [facility] [place] [facility] [address] [id number] [place] [address]- 7350 06 Sep, 2013 [facility] [place] [facility] [address] [id number] [place] [address]- 4601 Sep, [facility] [place] [facility] [address] [id number] [place] [address]- 4363 Aug, [facility] [place] [facility] [address] [id number] [place] [address]- 4550 Aug, [facility] [place] [facility] [address] [id number] [place] [address]- 8709 Aug, [facility] [place] [facility] [address] [id number] [place] [address]- 6028 Aug, [facility] [place] [facility] [address] [id number] [place] [address]- 7662 Aug, [facility] [place] [facility] [address] [id number] [place] [address]- 6149 Aug, [facility] [place] [facility] [address] [id number] [place] [address]- 3107 Aug, [facility] [place] [facility] [address] [id number] [place] [address]- 9490 Aug, [facility] [place] [facility] [address] [id number] [place] [address]- 2174 Aug, [facility] [place] [facility] [address] [id number] [place] [address]- 4163 Aug, [facility] [place] [facility] [address] [id number] [place] [address]- 8011 Aug, [facility] [place] [facility] [address] [id number] [place] [address]- 6274 Aug, [facility] [place] [facility] [address] [id number] [place] [address]- 7396 Aug, [facility] [place] [facility] [address] [id number] [place] [address]- 8499 July, [facility] [place] [facility] [address] [id number] [place] [address]- 8037 July, [facility] [place] [facility] [address] [id number] [place] [address]- 7141 July, [facility] [place] [facility] [address] [id number] [place] [address]- 0252 July, [facility] [place] [facility] [address] [id number] [place] [address]- 6545 July, [facility] [place] [facility] [address] [id number] [place] [address]- 2735 July, [facility] [place] [facility] [address] [id number] [place] [address]- 9100 July, [facility] [place] [facility] [address] [id number] [place] [address]- 5384 Jun, [facility] [place] [facility] [address] [id number] [place] [address]- 3927 Jun, [facility] [place] [facility] [address] [id number] [place] [address]- 3268 Jun, [facility] [place] [facility] [address] [id number] [place] [address]- 4843 Jun, [facility] [place] [facility] [address] [id number] [place] [address]- 3230 Jun, [facility] [place] [facility] [address] [id number] [place] [address]- 5444 Jun, [facility] [place] [facility] [address] [id number] [place] [address]- 7050 Jun, [facility] [place] [facility] [address] [id number] [place] [address]- 7447 May, [facility] [place] [facility] [address] [id number] [place] [address]- 6326 May, [facility] [place] [facility] [address] [id number] [place] [address]- 6674 14 May, 2013 [facility] [place] [facility] [address] [id number] [place] [address]- 3182 14 May, 2013 [facility] [place] [facility] [address] [id number] [place] [address]- 4674 13 May, 2013 [facility] [place] [facility] [address] [id number] [place] [address]- 0801 13 May, 2013 [facility] [place] [facility] [address] [id number] [place] [address]- 0266 10 May, 2013 [facility] [place] [facility] [address] [id number] [place] [address]- 7341 10 May, 2013 [facility] [place] [facility] [address] [id number] [place] [address]- 6239 07 May, 2013 [facility] [place] [facility] [address] [id number] [place] [address]- 9458 26 Apr, 2013 [facility] [place] [facility] [address] [id number] [place] [address]- 9919 26 Apr, 2013 [facility] [place] [facility] [address] [facility] [id number] [place] [address]- 9452 18 Apr, 2013 [facility] [place] [facility] [address] [facility] [id number] [place] [address]- 7676 15 Apr, 2013 [facility] [place] [facility] [address] [facility] [id number] [place] [address]- 7769 15 Apr, 2013 [facility] [place] [facility] [address] [id number] [place] [address]- 4071 11 Apr, 2013 [facility] [place] [facility] [address] [id number] [place] [address]- 6968 05 Apr, 2013 [facility] [place] [facility] [address] [facility] [id number] [place] 6745 05 Apr, 2013 [facility] [place] [facility] [address] [facility] [id number] [place] [address]- 4196 Apr, [facility] [place] [facility] [address] [id number] [place] [address]- 7275 Apr, [facility] [place] [facility] [address] [id number] [place] [address]- 1749 Mar, [facility] [place] [facility] [address] [facility] [id number] [place] [address]- 8496 Mar, [facility] [place] [facility] [address] [id number] [place] [address]- 4428 Mar, [facility] [place] [facility] [address] [id number] [place] [address]- 4243 Mar, [facility] [place] [facility] [address] [id number] [place] [address]- 1103 Mar, [facility] [place] [facility] [address] [id number] [place] [address]- 7914 Mar, [facility] [place] [facility] [address] [id number] [place] [address]- 6863 Mar, [facility] [place] [facility] [address] [id number] [place] [address]- 8888 Mar, [facility] [place] [facility] [address] [id number] [place] [address]- 1525 Feb, [facility] [place] [facility] [address] [id number] [address]- 9032 Feb, [facility] [place] [facility] [address] [id number] [address]- 4645 Jan, [facility] [place] [facility] [address] [id number] [place] [address]- 7371 Jan, [facility] [place] [facility] [address] [id number] [address]- 5051 15 Jan, 2013 [facility] [place] [facility] [address] [id number] [place] [address]- 2410 Jan, [facility] [place] [facility] [address] [id number] [place] [address]- 9141 Jan, [facility] [place] [facility] [address] [id number] [place] [address]- 6075 Jan, [facility] [place] [facility] [address] [id number] [place] [address]- 0840 Jan, [facility] [place] [facility] [address] [id number] [place] [address]- 2077 Jan, [facility] [place] [facility] [address] [id number] [place] [address]- 6610 Dec, [facility] [place] [facility] [address] [id number] [place] [address]- 3552 Dec, [facility] [place] [facility] [address] [id number] [place] [address]- 8762 Dec, [facility] [place] [facility] [address] [id number] [place] [address]- 1855 20 Nov, 2012 [facility] [place] [facility] [address] [id number] [place] [address]- 7542 13 Nov, 2012 [facility] [place] [facility] [address] [id number] [place] [address]- 2487 12 Nov, 2012 [facility] [place] [facility] [address] [id number] [place] [address]- 2350 Nov, [facility] [place] [facility] [address] [id number] [place] [address] 2546 Nov, [facility] [place] [facility] [address] [id number] [place] [address]- 2549 Nov, [facility] [place] [facility] [address] [id number] [place] [address]- 9477 Oct, [facility] [place] [facility] [address] [id number] [place] [address]- 6612 Oct, [facility] [place] [facility] [address] [id number] [place] [address]- 8577 Sep, [facility] [place] [facility] [address] [id number] [place] [address]- 4442 Sep, [facility] [address] [id number] [place] [address]- 2317 Sep, [facility] [address] [id number] [place] [address]- 4065 Sep, [facility] [address] [id number] [place] [address]- 2991 Sep, [facility] [address] [id number] [place] [address]- 5746 Sep, [facility] [address] [id number] [place] [address]- 1878 Sep, [facility] [address] [id number] [place] [address]- 5146 Aug, [facility] [address] [id number] [place] [address]- 3117 Aug, [facility] [address] [id number] [place] [address]- 6889 Aug, [facility] [place] [facility] [address] [id number] [place] [address]- 4249 Aug, [facility] [place] [facility] [address] [id number] [place] [address]- 2622 Aug, [facility] [place] [facility] [address] [id number] [place] [address]- 7339 Aug, [facility] [place] [facility] [address] [id number] [place] [address]- 4346 July, [facility] [place] [facility] [address] [id number] [place] [address]- 7806 July, [facility] [place] [facility] [address] [id number] [place] [address]- 3044 July, [facility] [place] [facility] [address] [id number] [address]- 0131 July, [facility] [address] [id number] [place] [address]- 6965 July, [facility] [address] [id number] [place] 4744 July, [facility] [address] [id number] [place] [address]- 1160 Jun, [facility] [address] [id number] [place] [address]- 5437 Jun, [facility] [address] [id number] [place] [address]- 1816 Jun, [facility] [address] [id number] [place] [address]- 1836 Jun, [facility] [address] [id number] [place] [address]- 7994 Jun, [facility] [address] [id number] [place] [address]- 0224 Jun, [facility] [address] [id number] [place] [address]- 5627 Jun, [facility] [address] [id number] [place] [address]- 2493 May, [facility] [address] [id number] [place] [address]- 2486 May, [facility] [place] [facility] [address] [id number] [place] [address]- 0574 Apr, [facility] [place] [facility] [address] [id number] [place] [address] Apr, [facility] [place] [facility] [address] [id number] [place] [address] Apr, [facility] [place] [facility] [address] [id number] [place] [address] Apr, [facility] [address] [id number] [place] [address] 12 Apr, 2012 [facility] [place] [facility] [address] [id number] [place] [address] 08 Apr, 2012 [facility] [place] [facility] [address] [id number] [place] [address] 07 Apr, 2012 [facility] [place] [facility] [address] [id number] [place] [address] 07 Apr, 2012 [facility] [place] [facility] [address] [id number] [place] [address] 06 Apr, 2012 [facility] [place] [facility] [address] [id number] [place] [address] Apr, [facility] [place] [facility] [address] [id number] [place] [address] Apr, [facility] [place] [facility] [address] [id number] [place] [address] 30 Mar, 2012 [facility] [place] [facility] [address] [id number] [place] [address] Mar, [facility] [place] [facility] [address] [id number] [place] [address] Mar, [facility] [place] [facility] [address] [id number] [place] [address] Mar, [facility] [place] [facility] [address] [id number] [place] [address] Mar, [facility] [place] [facility] [address] [id number] [place] [address] 25[address] Mar, [facility] [place] [facility] [address] [id number] [place] [address] Mar, [facility] [place] [facility] [address] [id number] [place] [address] Mar, [facility] [place] [facility] [address] [id number] [place] [address] Mar, [facility] [address] [id number] [place] [address] Mar, [facility] [address] [id number] [place] [address] Mar, [facility] [address] [facility] [id number] [place] [address] Mar, [facility] [address] [id number] [place] [address]- [address] Mar, [facility] [address] [id number] [place] [address] Feb, [facility] [address] [id number] [place] [address] Feb, [facility] [address] [facility] [id number] [place] [address] Feb, [facility] [address] [id number] [place] [address] Feb, [facility] [address] [id number] [place] [address] Feb, [facility] [address] [facility] [id number] [place] [address] Feb, [facility] [address] [id number] [place] [address] 10 Feb, 2012 [facility] [place] [facility] [address] [id number] [place] [address]- 2545 10 Feb, 2012 [facility] [place] [facility] [address] [id number] [place] [address]65 10 Feb, 2012 [facility] [place] [facility] [address] [facility] [id number] [place] [address]- 395[address] 10 Feb, 2012 [facility] [address] [facility] [id number] [place] [address] 06 Feb, 2012 [facility] [place] [facility] [address] [id number] [place] [address]- 16[address] 05 Feb, 2012 [facility] [place] [facility] [address] [id number] [place] [address]- [address] 05 Feb, 2012 [facility] [place] [facility] [address] [id number] [place] [address] 115[address] Feb, [facility] [place] [facility] [address] [id number] [place] [address]- [address] Feb, [facility] [place] [facility] [address] [id number] [place] [address]- [address] Jan, [facility] [place] [facility] [address] [id number] [place] [address]- [address] Jan, [facility] [place] [facility] [address] [id number] [place] [address] 8971 Jan, [facility] [place] [facility] [address] [id number] [place] [address] Jan, [facility] [place] [facility] [address] [id number] [place] [address]- [address] Dec, [facility] [place] [facility] [address] [id number] [place] [address]- [address] Dec, [facility] [place] [facility] [address] [id number] [place] [address]- [address] Dec, [facility] [place] [facility] [address] [id number] [place] [address]- [address] Dec, [facility] [place] [facility] [address] [id number] [place] [address]- [address]60 Dec, [facility] [place] [facility] [address] [id number] [place] [address]- [address] Dec, [facility] [place] [facility] [address] [id number] [place] [address] Dec, [facility] [place] [facility] [address] [id number] [place] [address] 16 Dec, 2011 [facility] [place] [facility] [address] [id number] [place] [address]- [address] 07 Dec, 2011 [facility] [place] [facility] [address] [id number] [place] [address]- 9936 04 Dec, 2011 [facility] [place] [facility] [address] [id number] [place] [address]- [address] 03 Dec, 2011 [facility] [place] [facility] [address] [id number] [place] [address]- 2026 25 Sep, 2011 [facility] [place] [facility] [address] [id number] [place] [address]- [address]76 24 Sep, 2011 [facility] [place] [facility] [address] [id number] [place] [address]- 0144 20 Sep, 2011 [facility] [place] [facility] [address] [id number] [place] [address]- [address]678 19 Sep, 2011 [facility] [place] [facility] [address] [id number] [place] [address]- [address] 17 Sep, 2011 [facility] [place] [facility] [address] [id number] [place] [address]- 7[address] 16 Sep, 2011 [facility] [place] [facility] [address] [id number] [place] [address]- 2296 14 Sep, 2011 [facility] [place] [facility] [address] [id number] [place] [address]- 7946 13 Sep, 2011 [facility] [place] [facility] [address] [id number] [place] [address]- 5822 12 Sep, 2011 [facility] [place] [facility] [address] [id number] [place] [address] 07 Sep, 2011 [facility] [place] [facility] [address] [id number] [place] [address] 06 Sep, 2011 [facility] [place] [facility] [address] [id number] [place] [address] 06 Sep, 2011 [facility] [place] [facility] [address] [id number] [place] [address] Nov, [facility] [place] [facility] [address] [id number] [place] [address] Oct, [facility] [place] [facility] [address] [id number] [place] [address]46 Oct, [facility] [place] [facility] [address] [id number] [place] [address] Oct, [facility] [place] [facility] [address] [id number] [place] [address] 2548 Oct, [facility] [place] [facility] [address] [id number] [place] [address] Oct, [facility] [place] [facility] [address] [id number] [place] [address] Oct, [facility] [place] [facility] [address] [id number] [place] [address]878 Oct, [facility] [place] [facility] [address] [id number] [place] [address] 74[address] Oct, [facility] [place] [facility] [address] [id number] [place] [address] Oct, [facility] [place] [facility] [address] [id number] [place] [address] 9839 Oct, [facility] [place] [facility] [address] [id number] [place] [address] 254 Oct, [facility] [place] [facility] [address] [id number] [place] [address] 84[address] Sep, [facility] [place] [facility] [address] [id number] [place] [address] 3264 Sep, [facility] [place] [facility] [address] [id number] [place] [address] Sep, [facility] [place] [facility] [address] [id number] [place] [address]256 Sep, [facility] [place] [facility] [address] [id number] [place] [address] Sep, [facility] [place] [facility] [address] [id number] [place] [address] 100[address] Sep, [facility] [address] [id number] [place] [address] Aug, [facility] [address] [id number] [place] [address] July, [facility] [address] [id number] [place] [address] 70[address] July, [facility] [address] [id number] [place] [address] Jun, [facility] [address] [id number] [place] [address] Jun, [facility] [address] [id number] [place] [address] 79[address] Jun, [facility] [address] [id number] [place] [address] 1567 Jun, [facility] [address] [id number] [place] [address] Jun, [facility] [place] [facility] [address] [id number] [place] [address] Jun, [facility] [place] [facility] [address] [id number] [place] [address] 8944 Jun, [facility] [place] [facility] [address] [id number] [place] [address]457 Jun, [facility] [place] [facility] [address] [id number] [place] [address] 8108 Jun, [facility] [place] [facility] [address] [id number] [place] [address] Jun, [facility] [place] [facility] [address] [id number] [place] [address] 2546 Jun, [facility] [place] [facility] [address] [id number] [place] [address] 9986 19 May, 2011 [facility] [place] [facility] [address] [id number] [place] [address]76 16 May, 2011 [facility] [place] [facility] [address] [facility] [id number] [place] [address]656 14 May, 2011 [facility] [place] [facility] [address] [id number] [place] [address] 2546 06 May, 2011 [facility] [place] [facility] [address] [id number] [place] [address] Apr, [facility] [place] [facility] [address] [id number] [place] [address] 6016 Apr, [facility] [place] [facility] [address] [facility] [id number] [place] [address] 8001 Apr, [facility] [place] [facility] [address] [id number] [place] [address] 4290 Apr, [facility] [place] [facility] [address] [id number] [place] [address] 9513 Apr, [facility] [place] [facility] [address] [facility] [id number] [place] [address] 3583 Apr, [facility] [place] [facility] [address] [facility] [id number] [place] [address] 2571 Apr, [facility] [place] [facility] [address] [id number] [place] [address] 6904 Apr, [facility] [place] [facility] [address] [id number] [place] [address] 1057 Mar, [facility] [place] [facility] [address] [facility] [id number] [place] [address] 3476 Mar, [facility] [place] [facility] [address] [facility] [id number] [place] [address] 8358 Mar, [facility] [place] [facility] [address] [id number] [place] [address] 6016 Mar, [facility] [address] [id number] [place] [address] 0963 Mar, [facility] [address] [id number] [place] [address] 3768 Mar, [facility] [address] [id number] [place] [address] 0287 Mar, [facility] [address] [id number] [place] [address] 7539 Mar, [facility] [address] [id number] [place] [address] 8657 Mar, [facility] [address] [id number] [place] [address]- 5874 Mar, [facility] [address] [id number] [place] [address]- 7683 Mar, [facility] [address] [id number] [place] [address] 3315 Mar, [facility] [address] [id number] [place] [address]- 6071 Mar, [facility] [address] [id number] [place] [address]- 3847 Mar, [facility] [address] [id number] [place] [address]- 3369 Mar, [facility] [address] [id number] [place] [address]- 6018 Mar, [facility] [address] [id number] [place] [address]- 3394 Feb, [facility] [address] [id number] [place] [address]- 1311 Feb, [facility] [address] [id number] [place] [address]36 Feb, [facility] [address] [facility] [id number] [place] [address] Jan, [facility] [address] [facility] [id number] [place] [address]- 8786 Jan, [facility] [address] [facility] [id number] [place] [address] 1786 Jan, [facility] [address] [facility] [id number] [place] [address] 0150 Dec, [facility] [address] [facility] [id number] [place] [address]- 4077 Dec, [facility] [id number] [place] [address]- 2346 Nov, [facility] [id number] [address] 4606 Oct, [facility] [id number] [address] 7790 Oct, [facility] [id number] [address] 7915 Oct, [facility] [id number] [address]- 9192 Sep, [facility] [address] [id number] [address]- 1340 Apr, [facility] [address] [id number] [address] 0309 Feb, [facility] [address] [id number] [address] 6462 Jan, IMMUNIZATIONS No Known Immunizations SOCIAL HISTORY Never Assessed REASON FOR VISIT Hospital admit/DC PLAN OF CARE VITAL SIGNS MEDICATIONS Medication Instructions Dosage Frequency Start Date End Date Duration Status Oxygen 2Lt by inhalation route 24 hours Active Trulicity 0.75 MG/0.5ML Subcutaneous once weekly 0.5 ml Jun, 90 days Active Multivitamin Adult - Orally Once a day 24h Active Glimepiride 1 MG Orally Once a day on the days you are taking the prednsone 1 tablet with breakfast or the first main meal of the day Mar, 30 day(s) Active Cymbalta 60 mg Orally Once a day 2 capsule 24h 11 Feb, 2015 Active Pantoprazole Sodium 40 mg Orally twice a day 1 tablet 12h 28 Apr, 2017 30 day(s) Active Topamax 100 mg Orally Twice a day 1 tablet 12h 30 Active Zofran ODT 8 MG Orally every 6 hours as needed for Nausea and vomiting as directed May, Active Zyrtec Allergy 10 MG Orally Once a day 1 tablet 24h Unknown Neurontin 300 MG Orally Three times a day-repository 1 capsule Dec, Active Metoprolol Tartrate 25 MG Orally 2 times a day 1/2 tablet 12h Active Metamucil 43 % Orally Once a day 3.4 GM 24h May, Active Advair Diskus 250 mcg-50 mcg Inhalation Twice a day 1 puff 12h Dec, Active Loperamide HCl 2 MG Orally No more than 8 caps a day 2 capsules with first stool and then 1 with each 6 subsequent stools May, Unknown Abilify 15 mg Orally Once a day 1 tablet 24h Jun, 90 days Active Ipratropium-Albuterol 0.5-2.5 (3) MG/3ML Inhalation Four times a day 3 ml as needed for Shortness of breath 6h Active Ventolin HFA 108 (90 Base) MCG/ACT Inhalation every 4 hours prn shortness of breath 2 puffs as needed Active Sucralfate 1 GM Orally AC and HS 1 tablet at bedtime on an empty stomach before meals Active Spiriva HandiHaler 18 MCG Inhalation Once a day 1 capsule 24h Active PredniSONE 20 mg Orally Once a day 2 tablets 24h Jun, Jun, Active RESULTS No Results PROCEDURES No [...] 2/2 Benzos OD, pneumonia MRSA, [facility], Hypokalemia-- VC 12/20/2015 Hospitalization History COPD exacerbation, Asthma-[facility] 09/21/16 Hospitalization History COPD-[facility] 12/30/2016 Hospitalization History [facility]-last around 2006 or so. Hospitalization History for COPD x2 Mar 2017 Hospitalization History Upper GI bleed at apr 2017 Hospitalization History [facility]- COPD Exacerbation, diarrhea 05/23/2017 Hospitalization History COPD exacerbation-[facility] 06/13/17 Hospitalization History CHF 09/09/2017
--- OUTSIDE RECORDS SUMMARY | 2017-11-19 12:24 | XMS REPORT ---
Author Author TIMOTHY LARIOS Organization [facility] Address [address] [place] [address] Care Team Providers Care Condominium Manager Name Role Phone TIMOTHY LARIOS Unavailable PROBLEMS Type Condition ICD9-CM Code [id number] Code Onset Dates Condition Status SNOMED Code Problem Bipolar disorder with depression F31.30 Active 88351313 Problem Other emphysema J43.8 Active 66913332 Problem Migraine without aura and without status migrainosus, not intractable G43.009 Active 945494127 Problem Anxiety F41.9 Active 24136670 Problem COPD with exacerbation J44.1 Active 205603278 Problem Methamphetamine use disorder, moderate, 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 Active 57424782 Problem Chronic bronchitis, unspecified chronic bronchitis type J42 Active 66797528 Problem Intractable cyclical vomiting with nausea G43.A1 Active 23084469 Problem Diabetes E11.9 Active 876353282 Problem 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 Active Problem Tobacco abuse Z72.0 Active 49557852 Problem Examination of eyes and vision V72.0 Active 764385033 Problem Chronic constipation K59.09 Active 998410685 Problem Memory loss R41.3 Active 66837813 Problem Migraine G43.909 Active 33218042 Problem Bipolar disorder, unspecified F31.9 Active 07632616 Problem TMJ (sprain of temporomandibular joint) S03.4XXA Active 95514251 Problem Generalized anxiety disorder F41.1 Active 62248088 ALLERGIES No Information ENCOUNTERS Encounter Location Date Diagnosis [facility] [id number] [place] [address] 00293- 8010 Sep, COPD with exacerbation J44.1 and Anxiety F41.9 [facility] [address] [place] [address] Sep, [facility] [address] [address] 6811 Sep, [facility] [address] [place] [address] 0721 Sep, [facility] [address] [place] [address] 4006 Sep, Acute congestive heart failure, unspecified heart failure type I50.9 and Anxiety disorder, unspecified F41.9 [facility] [id number] [place] [address] 41657- 9122 Sep, Heart failure, unspecified HF chronicity, unspecified heart failure type I50.9 [facility] [id number] [place] [address] 65895- 5148 Sep, [facility] [id number] [place] [address] 66734- 4065 Aug, Chronic obstructive pulmonary disease with acute exacerbation J44.1 [facility] [id number] [address] 3320 Aug, [facility] [id number] [place] [address] 11082- 2629 Aug, [facility] [id number] [address] 4169 July, [facility] [address] [place] [address] 4177 July, [facility] [address] [place] [address] 48297- 3562 July, Diabetes E11.9 and Chronic obstructive pulmonary disease with acute exacerbation J44.1 [facility] [id number] [place] [address] 35693- 1484 Jun, Chronic obstructive pulmonary disease with acute exacerbation J44.1 ; Diabetes E11.9 and Tobacco abuse Z72.0 [facility] [address] [address] 3305 Jun, [facility] [address], [place] [address]- 9498 Jun, [facility] [id number] [place] [address] 73100- 9631 May, [facility] [id number] [place] [address] 61105- 7665 May, [facility] [id number] [place] [address] 03102 -0006 17 May, 2017 [facility] [id number] [place] [address] 01600- 9059 16 May, 2017 [facility] [id number] [place] [address] 00408- 8508 15 May, 2017 [facility] [id number] [place] [address] 75691- 0833 14 May, 2017 Diarrhea, unspecified type R19.7 and Intractable cyclical vomiting with nausea G43.A1 [facility] [id number] [place] [address] 47473- 3939 12 May, 2017 [facility] [id number] [place] [address] 97603- 7838 05 May, 2017 [facility] [id number] [place] [address] 44934- 6439 28 Apr, 2017 COPD exacerbation J44.1 ; Esophageal candidiasis B37.81 ; Other acute gastritis with hemorrhage K29.01 and Acute posthemorrhagic anemia D62 [facility] [address] [place] [address] 02899- 9290 Apr, Viral illness B34.9 and COPD exacerbation J44.1 [facility] [id number] [place] [address] 30300 -0030 Apr, Shortness of breath R06.02 and Pneumonia of both lower lobes due to infectious organism J18.9 [facility] [id number] [place] [address] 46865 -3085 Mar, COPD with acute exacerbation J44.1 [facility] [address], [place] [address]- 0202 Mar, Chronic obstructive pulmonary disease with acute exacerbation J44.1 and Diabetes E11.9 [facility] [address], [place] [address]- 0884 Mar, [facility] [id number] [place] [address] 41133- 1800 Mar, [facility] [address] [place] [address] 30335 -2096 Mar, COPD exacerbation J44.1 [facility] [id number] [place] [address] 18917- 6488 Mar, [facility] [id number] [place] [address] 18571- 5903 Mar, Migraine G43.909 ; Hypokalemia E87.6 and Type 2 diabetes mellitus without complications E11.9 [facility] [id number] [place] [address] 83971- 7853 Feb, [facility] [id number] [place] [address] 23611- 5372 Feb, [facility] [id number] [place] [address] 98344- 1334 Feb, Methamphetamine use disorder, moderate, 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 ; Major depressive disorder, recurrent, moderate F33.1 ; Anxiety disorder, unspecified F41.9 and Tobacco abuse Z72.0 [facility] [address] [place] [address] 31755- 7375 30 Jan, 2017 Major depressive disorder, recurrent, moderate F33.1 [facility] [address] [place] [address] 81629- 0639 16 Jan, 2017 [facility] [id number] [place] [address] 29865- 9257 Jan, [facility] [address], [place] [address]- 0596 Jan, Major depressive disorder, recurrent, moderate F33.1 [facility] [id number] [place] [address] 17792- 8408 Jan, Major depressive disorder, recurrent, moderate F33.1 ; Anxiety disorder, unspecified F41.9 ; Methamphetamine use disorder, moderate, 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 and Tobacco abuse Z72.0 [facility] [id number] [place] [address] 99400- 9647 Jan, [facility] [id number] [place] [address] 26015- 0485 Jan, Chronic obstructive pulmonary disease with acute exacerbation J44.1 and Diabetes E11.9 [place] [id number] [place] [address] 68909- 5120 Jan, [facility] [id number] [place] [address] 10931- 2932 Jan, [facility] [id number] [place] [address] 74763- 9800 Dec, Acute respiratory failure with hypoxia J96.01 ; Chronic bronchitis, unspecified chronic bronchitis type J42 and Tobacco use Z72.0 [facility] [id number] [place] [address] 05299- 5538 Dec, [facility] [id number] [place] [address] [phone] Nov, Dental caries K02.9 and Dental examination Z01.20 [facility] [id number] [place] [address] 15434- 9235 Nov, Major depressive disorder, recurrent, moderate F33.1 ; Anxiety disorder, unspecified F41.9 and 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 [facility] [address] [place] [address] [phone] Oct, Dental examination Z01.20 [facility] [address], [place] [address]- 9261 Oct, [facility] [id number] [place] [address] 05688- 2765 Oct, Diabetes E11.9 and Thrush B37.0 [facility] [id number] [place] [address] 14868- 1704 Oct, [facility] [id number] [place] [address] 62014- 6986 Oct, [facility] [id number] [place] [address] 51156- 0347 Oct, [facility] [id number] [place] [address] 55717- 5374 Sep, Major depressive disorder, recurrent, moderate F33.1 ; Anxiety disorder, unspecified F41.9 and Bipolar disorder, unspecified F31.9 [facility] [id number] [place] [address] 33122- 3949 Sep, Acute exacerbation of chronic obstructive pulmonary disease (COPD) J44.1 and Migraine G43.909 [facility] [id number] [place] [address] 22644- 9897 Sep, [facility] [id number] [place] [address] [phone] Sep, [facility] [id number] [place] [address] 63939- 9371 Sep, Acute exacerbation of chronic obstructive pulmonary disease (COPD) J44.1 [facility] [address], [place] [address] -7978 Sep, Acute exacerbation of chronic obstructive pulmonary disease (COPD) J44.1 [facility] [address], [place] [address]- 9422 Aug, [facility] [id number] [place] [address] 27590- 7613 Aug, Major depressive disorder, recurrent, moderate F33.1 ; Anxiety disorder, unspecified F41.9 and 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 [facility] [id number] [place] [address] 33856- 8615 19 Aug, 2016 Wheezing R06.2 ; Non morbid obesity due to excess calories E66.09 ; Migraine without aura and without status migrainosus, not intractable G43.009 and Tobacco abuse Z72.0 [facility] [id number] [place] [address] [id number] 14 Aug, 2016 Encounter for dental examination Z01.20 [facility] [id number] [place] [address] 25664- 2884 02 Aug, 2016 Major depressive disorder, recurrent, moderate F33.1 ; Anxiety disorder, unspecified F41.9 and 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 [facility] [id number] [place] [address] 18732- 8594 July, [facility] [id number] [place] [address] 50129- 5368 July, [facility] [id number] [place] [address] 76969- 5579 July, [facility] [id number] [place] [address] 26788- 1769 July, Diabetes E11.9 [facility] [id number] [place] [address] 65021- 8679 Jun, Major depressive disorder, recurrent, moderate F33.1 [facility] [id number] [place] [address] 64243- 4173 Jun, Major depressive disorder, recurrent, moderate F33.1 ; 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 ; Generalized anxiety disorder F41.1 and Bipolar disorder, unspecified F31.9 [facility] [id number] [place] [address] 31150- 2770 Jun, Diabetes E11.9 ; Migraine G43.909 ; Thrush B37.0 and Wheezing R06.2 [facility] [id number] [place] [address] [phone] Jun, Dental examination Z01.20 [facility] [id number] [place] [address] 67350- 6925 Jun, [facility] [id number]- 4531 Jun, Major depressive disorder, recurrent, moderate F33.1 ; Anxiety disorder, unspecified F41.9 and 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 [facility] [id number] [place] [address] 38921- 5173 Jun, [facility] [id number] [place] [address] 46613- 4141 Jun, Wheezing R06.2 [facility] [address] [id number] Jun, Dental caries K02.9 [facility] [id number] [place] [address] 07088- 2935 Jun, Major depressive disorder, recurrent, moderate F33.1 ; Anxiety disorder, unspecified F41.9 and 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 [facility] [address] [place] [address] 85330- 8585 Jun, RLQ abdominal pain R10.31 ; Diabetes E11.9 ; Obesity, unspecified obesity severity, unspecified obesity type E66.9 ; Wheezing R06.2 and Abnormal urinalysis R82.90 [facility] [id number] [place] [address] 74440- 1383 May, [facility] [id number] [place] [address] 24198- 4774 May, Well woman exam Z01.419 ; Breast cancer screening Z12.39 ; Cervical cancer screening Z12.4 ; Urinary frequency R35.0 ; Edema, unspecified type R60.9 and Chronic constipation K59.09 [facility] [id number] [place] [address] 25793- 8152 08 May, 2016 Major depressive disorder, recurrent, moderate F33.1 ; Anxiety disorder, unspecified F41.9 and 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 [facility] [id number] [place] [address] [id number] May, Dental examination Z01.20 [facility] [id number] [place] [address] 40181- 7302 May, [facility] [address] 75104- 6801 May, [facility] [id number] [place] [address] 82390- 3244 May, Chronic constipation K59.09 [facility] [address] 18956- 4354 Apr, [facility] [id number] [place] [address] 28132- 5369 Apr, Major depressive disorder, recurrent, moderate F33.1 ; Anxiety disorder, unspecified F41.9 and 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 [facility] [id number] [place] [address] 93221- 9207 Apr, [facility] [id number] [place] [address] 76606- 1470 Mar, Major depressive disorder, recurrent, moderate F33.1 [facility] [id number] [place] [address] 12944- 3759 Mar, Major depressive disorder, recurrent, moderate F33.1 ; Generalized anxiety disorder F41.1 and Bipolar I disorder, most recent episode depressed with anxious distress F31.30 [facility] [id number] [place] [address] 62443- 8024 Mar, Diabetes E11.9 ; Non morbid obesity due to excess calories E66.09 ; Breast cancer screening Z12.39 and Encounter for immunization Z23 [place] [address] 76909- 7232 Mar, Major depressive disorder, recurrent, moderate F33.1 ; Anxiety disorder, unspecified F41.9 and 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 [facility] [id number] [place] [address] 51223- 4815 Mar, [facility] [id number] [place] [address] 40475- 2521 Feb, Major depressive disorder, recurrent, moderate F33.1 ; Anxiety disorder, unspecified F41.9 and 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 [facility] [id number] [place] [address] 81083- 7580 Feb, [facility] [id number] [place] [address] 80107- 1589 Feb, [facility] [id number] [place] [address] 01541- 6260 Jan, Major depressive disorder, recurrent, moderate F33.1 ; Generalized anxiety disorder F41.1 and Bipolar disorder, current episode depressed, severe, without psychotic features F31.4 [facility] [id number] [place] [address] 08921- 9217 Jan, Major depressive disorder, recurrent, moderate F33.1 ; Anxiety disorder, unspecified F41.9 and 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 [facility] [id number] [place] [address] 78766- 8728 Jan, Bronchitis J40 [facility] [id number] [place] [address] 05007- 2754 Jan, [facility] [id number] [place] [address] 90067- 2390 Jan, [facility] [id number] [address]- 8351 Jan, Elbow injury, right, initial encounter S59.901A ; Multiple contusions T14.8 and Cervical strain, acute, initial encounter S16.1XXA [facility] [address], [place] [address]- 4890 Dec, Major depressive disorder, recurrent, moderate F33.1 ; Generalized anxiety disorder F41.1 and Bipolar disorder with depression F31.30 [facility] [address], [place] [address]- 9942 Dec, [facility] [address] [facility] [id number] [place] [address] 77122- 8711 Dec, [facility] [address] [place] [address] 35642- 3939 Dec, [facility] [address] [address]- 7048 Dec, [facility] [address], [place] [address]- 6336 Dec, Yeast infection B37.9 [facility] [address] [place] [address] 13963- 0679 Dec, Pneumonia of both lungs due to methicillin resistant Staphylococcus aureus (MRSA), unspecified part of lung J15.212 and Benzodiazepine overdose, accidental or unintentional, subsequent encounter T42.4X1D [facility] [id number] [address]- 1897 Dec, [facility] [address] [place] [address]- 7991 Dec, [facility] [address] [place] [address] 72434- 5384 Dec, Knee pain, left M25.562 and Edema, unspecified type R60.9 [facility] [address] [place] [address] 03940- 4546 Dec, [facility] [id number] [place] [address] 11651- 0377 Dec, Anxiety disorder, unspecified F41.9 and Bipolar disorder, unspecified F31.9 [facility] [id number] [place] [address] 34084- 4546 Nov, Major depressive disorder, recurrent, moderate F33.1 ; Anxiety disorder, unspecified F41.9 and 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 [facility] [id number] [place] [address] 65236- 4420 Nov, [facility] [id number] [place] [address] 94986- 0541 Nov, Migraine without aura and without status migrainosus, not intractable G43.009 [facility] [id number] [place] [address] 56095- 7859 Nov, Migraine G43.909 [facility] [id number] [place] [address] 72348- 0769 Nov, [facility] [id number] [place] [address] 27188- 2137 Nov, Major depressive disorder, recurrent, moderate F33.1 ; Anxiety disorder, unspecified F41.9 and 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 [facility] [id number] [place] [address] 34501- 1972 Oct, Chronic constipation K59.09 and Obesity, unspecified obesity severity, unspecified obesity type E66.9 [facility] [id number] [place] [address] 46001- 5594 Oct, Obesity, unspecified obesity severity, unspecified obesity type E66.9 ; Chronic constipation K59.09 and Anxiety disorder, unspecified F41.9 [place] [address] [place] [address] 15698- 6292 Oct, [place] [address] [place] [address] 81567- 4291 Sep, Diabetes E11.9 ; Edema, unspecified type R60.9 ; Varicose vein of leg I83.90 and Obesity, unspecified obesity severity, unspecified obesity type E66.9 [place] [address] [place] [id number] [place] [address] 59530- 4595 Sep, Edema, unspecified type R60.9 ; Diabetes E11.9 and Knee pain , left M25.562 [place] [address] [place] [id number] [place] [address] 65614- 5760 Sep, [place] [address] [address]- [address] Sep, [place] [address] [place] [id number] [place] [address] 52100- 8346 Sep, Major depressive disorder, recurrent, moderate F33.1 ; Generalized anxiety disorder F41.1 and Bipolar disorder, unspecified F31.9 [place] [address] [place] [id number] [place] [address] 75375- 9361 Aug, Chondromalacia of left knee M94.262 [place] [address] [place] [id number] [place] [address] 69627- 3039 Aug, Major depressive disorder, recurrent, moderate F33.1 ; Anxiety disorder, unspecified F41.9 and 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 [place] [id number] [place] [address] 66896- 0016 Aug, [place] [address] [place] [id number] [place] [address] 04300- 9268 Aug, Osteoarthritis of left knee M17.9 [place] [address] [place] [id number] [place] [address] 62197- 0697 Aug, [place] [address] [place] [id number] [place] [address] 14510- 9384 July, Major depressive disorder, recurrent, moderate F33.1 ; Anxiety disorder, unspecified F41.9 and 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 [facility] [address] [place] [id number] [place] [address] 31181- 8317 July, [facility] [address] [place] [id number] [place] [address] 03817- 7490 July, Chronic constipation K59.09 [facility] [address] [address]- [address]290 Jun, [facility] [address] [address]- [address] Jun, [place] [address] 41969- 5033 14 Jun, 2015 Osteoarthritis of left knee M17.9 [place] [address] 13066- 4888 Jun, [facility] [address] [place] [id number] [place] [address] 00207- 6885 Jun, Generalized anxiety disorder F41.1 ; Bipolar disorder, unspecified F31.9 and Major depressive disorder, recurrent, moderate F33.1 [facility] [address] [place] [id number] [place] [address] 45080- 1499 Jun, Migraine G43.909 [place] [address] [place] [id number] [place] [address] 45387- 2147 Jun, Left knee pain M25.562 ; Chronic constipation K59.09 ; Dry mouth R68.2 ; Yeast vaginitis B37.3 and Memory loss R41.3 [place] [address] 75426- 3551 Jun, [facility] [address] [address] [id number] [place] [address] 68311- 1270 May, [facility] [id number] [place] [address] 31766- 9725 May, [facility] [address] [address] 8168 May, [facility] [address] [id number] [place] [address] 87132- 3874 May, [facility] [id number] [place] [address] 19505- 5237 May, Acute bronchitis with COPD J44.0 ; Knee pain, left M25.562 and Encounter for tobacco use cessation counseling Z71.6 [place] [address] [place] [address] [id number] [place] [address] 54051- 7750 May, [place] [address] [place] [id number] [place] [address] 52291- 5483 Apr, Diabetes E11.9 ; TMJ (sprain of temporomandibular joint) S03.4XXA ; Tobacco abuse Z72.0 ; Migraine G43.909 and Anxiety F41.9 [place] [address] [place] [id number] [place] [address] 18640- 4264 Apr, Generalized anxiety disorder F41.1 and Bipolar disorder, unspecified F31.9 [place] [address] [place] [id number] [place] [address] 72538- 1317 Apr, Major depressive disorder, recurrent, moderate F33.1 ; Anxiety disorder, unspecified F41.9 and 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 [place] [id number] [place] [address] 08241- 0504 Apr, [place] [id number] [place] [address] 22570- 6240 Mar, [place] [address] [place] [id number] [place] [address] 44608- 4334 Feb, [place] [id number] [place] [address] 22178- 8472 Feb, Major depressive disorder, recurrent, moderate F33.1 ; Anxiety disorder, unspecified F41.9 and 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 [place] [address] [place] [id number] [place] [address] 18718- 6282 Feb, [place] [address] [place] [id number] [place] [id number] [address] Feb, Generalized anxiety disorder F41.1 and Bipolar disorder, unspecified F31.9 [place] [address] 48389- 3868 Jan, [place] [address] 99847- 5983 Jan, [place] [address] 17727- 6573 Jan, Bipolar disorder, unspecified F31.9 and Generalized anxiety disorder F41.1 [place] [address] 35115- 4111 Dec, [place] [address] [place] [id number] [place] [address] 46900- 7937 Dec, Bipolar disorder, unspecified F31.9 and Generalized anxiety disorder F41.1 [place] [address] [place] [id number] [place] [address] 08017- 4980 Dec, Generalized anxiety disorder F41.1 and Major depressive disorder, recurrent, moderate F33.1 [place] [address] [place] [id number] [place] [address] 43199- 4627 Oct, Headache 784.0 ; Cough 786.2 ; Vomiting and diarrhea 787.03 and Dysuria 788.1 [place] [address] 92933- 7296 Aug, [address] 93348- 3935 Aug, Headache 784.0 and Shortness of breath 786.05 [place] [address] 55517- 7270 Aug, [facility] [place] [facility] [address] [facility] [id number] [place] [address]- 3493 Aug, Migraine 346.90 [facility] [place] [facility] [address] [id number] [place] [address]- 1000 14 Jun, 2014 [facility] [place] [facility] [address] [facility] [id number] [place] [address]- 0557 Jun, [facility] [place] [facility] [address] [id number] [place] [address]- 0031 May, [facility] [place] [facility] [address] [id number] [place] [address]- 8966 May, [facility] [place] [facility] [address] [facility] [id number] [place] [address]- 1519 May, [facility] [place] [facility] [address] [facility] [id number] [place] [address]- 0394 May, [facility] [place] [facility] [address] [facility] [id number] [place] [address]- 0158 May, [facility] [place] [facility] [address] [facility] [id number] [place] [address]- 7326 May, [facility] [place] [facility] [address] [facility] [id number] [place] [address]- 0615 Apr, [facility] [place] [facility] [address] [facility] [id number] [place] [address]- 5292 Apr, [facility] [place] [facility] [address] [facility] [id number], [place] [address]- 9455 Apr, [facility] [place] [facility] [address] [facility] [id number] [place] [address]- 0188 Apr, [facility] [place] [facility] [address] [facility] [id number], [place] [address]- 1144 Apr, [facility] [place] [facility] [address] [facility] [id number], [place] [address]- 3026 Mar, [facility] [place] [facility] [address] [id number] [place] [address]- 2309 Mar, [facility] [place] [facility] [address] [id number] [place] [address]- 2734 Mar, [facility] [place] [facility] [address] [id number] [place] [address]- 5988 Mar, [facility] [place] [facility] [address] [id number] [place] [address]- 9246 Feb, [facility] [place] [facility] [address] [id number] [place] [address]- 1008 Feb, [facility] [place] [facility] [address] [id number] [place] [address]- 0831 Feb, [facility] [place] [facility] [address] [id number] [place] [address]- 4034 Feb, [facility] [place] [facility] [address] [id number] [place] [address]- 7735 Feb, [facility] [place] [facility] [address] [id number] [place] [address]- 8625 Feb, [facility] [place] [facility] [address] [id number] [place] [address]- 2887 Feb, [facility] [place] [facility] [address] [id number] [place] [address]- 8385 Feb, [facility] [place] [facility] [address] [id number], [place] [address]- 7855 Feb, [facility] [place] [facility] [address] [id number] [place] [address]- 0081 Feb, [facility] [place] [facility] [address] [id number] [place] 7246 Feb, [facility] [place] [facility] [address] [id number] [place] [address]- 2462 Feb, [facility] [place] [facility] [address] [id number], [place] [address]- 5272 Jan, [facility] [place] [facility] [address] [id number] [place] [address]- 5615 Jan, [facility] [place] [facility] [address] [id number] [place] [address]- 9877 Dec, [facility] [place] [facility] [address] [id number] [place] [address]- 1948 Dec, [facility] [place] [facility] [address] [id number] [place] [address]- 8540 Dec, [facility] [place] [facility] [address] [id number] [place] [address]- 2998 Dec, [facility] [place] [facility] [address] [id number] [place] [address]- 6695 Dec, [facility] [place] [facility] [address] [id number] [place] [address]- 2212 Dec, [facility] [place] [facility] [address] [id number] [place] [address]- 1840 Sep, [facility] [place] [facility] [address] [id number] [place] [address]- 0255 Sep, [facility] [place] [facility] [address] [id number] [place] [address]- 2164 Sep, [facility] [place] [facility] [address] [id number] [place] [address]- 5433 Sep, [facility] [place] [facility] [address] [id number] [place] [address]- 5212 Sep, [facility] [place] [facility] [address] [id number] [place] [address]- 0775 Sep, [facility] [place] [facility] [address] [id number] [place] [address]- 1867 Sep, [facility] [place] [facility] [address] [id number] [place] [address]- 6313 Sep, [facility] [place] [facility] [address] [id number] [place] [address]- 9902 06 Sep, 2013 [facility] [place] [facility] [address] [id number] [place] [address]- 7825 Sep, [facility] [place] [facility] [address] [id number] [place] [address]- 1498 Aug, [facility] [place] [facility] [address] [id number] [place] [address]- 3295 Aug, [facility] [place] [facility] [address] [id number] [place] [address]- 9449 Aug, [facility] [place] [facility] [address] [id number] [place] [address]- 9304 Aug, [facility] [place] [facility] [address] [id number] [place] [address]- 0910 Aug, [facility] [place] [facility] [address] [id number] [place] [address]- 7058 Aug, [facility] [place] [facility] [address] [id number] [place] [address]- 3861 Aug, [facility] [place] [facility] [address] [id number] [place] [address]- 4959 Aug, [facility] [place] [facility] [address] [id number] [place] [address]- 8394 Aug, [facility] [place] [facility] [address] [id number] [place] [address]- 6849 Aug, [facility] [place] [facility] [address] [id number] [place] [address]- 9672 Aug, [facility] [place] [facility] [address] [id number] [place] [address]- 5570 Aug, [facility] [place] [facility] [address] [id number] [place] [address]- 2553 Aug, [facility] [place] [facility] [address] [id number] [place] [address]- 6102 July, [facility] [place] [facility] [address] [id number] [place] [address]- 8223 July, [facility] [place] [facility] [address] [id number] [place] [address]- 1525 July, [facility] [place] [facility] [address] [id number] [place] [address]- 9065 July, [facility] [place] [facility] [address] [id number] [place] [address]- 7801 July, [facility] [place] [facility] [address] [id number] [place] [address]- 9065 July, [facility] [place] [facility] [address] [id number] [place] [address]- 3744 July, [facility] [place] [facility] [address] [id number] [place] [address]- 5356 Jun, [facility] [place] [facility] [address] [id number] [place] [address]- 7142 Jun, [facility] [place] [facility] [address] [id number] [place] [address]- 9945 Jun, [facility] [place] [facility] [address] [id number] [place] [address]- 2923 Jun, [facility] [place] [facility] [address] [id number] [place] [address]- 2915 Jun, [facility] [place] [facility] [address] [id number] [place] [address]- 8704 Jun, [facility] [place] [facility] [address] [id number] [place] [address]- 1433 Jun, [facility] [place] [facility] [address] [id number] [place] [address]- 9491 May, [facility] [place] [facility] [address] [id number] [place] [address]- 6782 May, [facility] [place] [facility] [address] [id number] [place] [address]- 3964 14 May, 2013 [facility] [place] [facility] [address] [id number] [place] [address]- 5268 14 May, 2013 [facility] [place] [facility] [address] [id number] [place] [address]- 9516 13 May, 2013 [facility] [place] [facility] [address] [id number] [place] [address]- 4160 13 May, 2013 [facility] [place] [facility] [address] [id number] [place] [address]- 0709 10 May, 2013 [facility] [place] [facility] [address] [id number] [place] [address]- 9858 10 May, 2013 [facility] [place] [facility] [address] [id number] [place] [address]- 1241 07 May, 2013 [facility] [place] [facility] [address] [id number] [place] [address]- 5090 26 Apr, 2013 [facility] [place] [facility] [address] [id number] [place] [address]- 5451 26 Apr, 2013 [facility] [place] [facility] [address] [facility] [id number] [place] [address]- 4635 18 Apr, 2013 [facility] [place] [facility] [address] [facility] [id number] [place] [address]- 5776 15 Apr, 2013 [facility] [place] [facility] [address] [facility] [id number] [place] [address]- 4214 15 Apr, 2013 [facility] [place] [facility] [address] [id number] [place] [address]- 4219 11 Apr, 2013 [facility] [place] [facility] [address] [id number] [place] [address]- 9855 05 Apr, 2013 [facility] [place] [facility] [address] [facility] [id number] [place] 1856 05 Apr, 2013 [facility] [place] [facility] [address] [facility] [id number] [place] [address]- 9108 Apr, [facility] [place] [facility] [address] [id number] [place] [address]- 9416 Apr, [facility] [place] [facility] [address] [id number] [place] [address]- 9685 Mar, [facility] [place] [facility] [address] [facility] [id number] [place] [address]- 4850 Mar, [facility] [place] [facility] [address] [id number] [place] [address]- 6252 Mar, [facility] [place] [facility] [address] [id number] [place] [address]- 4698 Mar, [facility] [place] [facility] [address] [id number] [place] [address]- 6705 Mar, [facility] [place] [facility] [address] [id number] [place] [address]- 8629 Mar, [facility] [place] [facility] [address] [id number] [place] [address]- 6690 Mar, [facility] [place] [facility] [address] [id number] [place] [address]- 1971 Mar, [facility] [place] [facility] [address] [id number] [place] [address]- 7273 Feb, [facility] [place] [facility] [address] [id number], [place] [address]- 3392 Feb, [facility] [place] [facility] [address] [id number], [place] [address]- 8533 Jan, [facility] [place] [facility] [address] [id number] [place] [address]- 2689 Jan, [facility] [place] [facility] [address] [id number], [place] [address]- 9957 15 Jan, 2013 [facility] [place] [facility] [address] [id number] [place] [address]- 8268 Jan, [facility] [place] [facility] [address] [id number] [place] [address]- 5676 Jan, [facility] [place] [facility] [address] [id number] [place] [address]- 8505 Jan, [facility] [place] [facility] [address] [id number] [place] [address]- 5416 Jan, [facility] [place] [facility] [address] [id number] [place] [address]- 4190 Jan, [facility] [place] [facility] [address] [id number] [place] [address]- 9369 Dec, [facility] [place] [facility] [address] [id number] [place] [address]- 7284 Dec, [facility] [place] [facility] [address] [id number] [place] [address]- 5268 Dec, [facility] [place] [facility] [address] [id number] [place] [address]- 4416 20 Nov, 2012 [facility] [place] [facility] [address] [id number] [place] [address]- 7343 13 Nov, 2012 [facility] [place] [facility] [address] [id number] [place] [address]- 7597 12 Nov, 2012 [facility] [place] [facility] [address] [id number] [place] [address]- 1313 Nov, [facility] [place] [facility] [address] [id number] [place] [address] 2546 Nov, [facility] [place] [facility] [address] [id number] [place] [address]- 2540 Nov, [facility] [place] [facility] [address] [id number] [place] [address]- 7073 Oct, [facility] [place] [facility] [address] [id number] [place] [address]- 8152 Oct, [facility] [place] [facility] [address] [id number] [place] [address]- 9042 Sep, [facility] [place] [facility] [address] [id number] [place] [address]- 5295 Sep, [facility] [address] [id number] [place] [address]- 5638 Sep, [facility] [address] [id number] [place] [address]- 2517 Sep, [facility] [address] [id number] [place] [address]- 0970 Sep, [facility] [address] [id number] [place] [address]- 9873 Sep, [facility] [address] [id number] [place] [address]- 9598 Sep, [facility] [address] [id number] [place] [address]- 4203 Aug, [facility] [address] [id number] [place] [address]- 4700 Aug, [facility] [address] [id number] [place] [address]- 9636 Aug, [facility] [place] [facility] [address] [id number] [place] [address]- 6683 Aug, [facility] [place] [facility] [address] [id number] [place] [address]- 6848 Aug, [facility] [place] [facility] [address] [id number] [place] [address]- 8601 Aug, [facility] [place] [facility] [address] [id number] [place] [address]- 7532 July, [facility] [place] [facility] [address] [id number] [place] [address]- 2858 July, [facility] [place] [facility] [address] [id number] [place] [address]- 8010 July, [facility] [place] [facility] [address] [id number], [place] [address]- 8331 July, [facility] [address] [id number] [place] [address]- 8958 July, [facility] [address] [id number] [place] 1455 July, [facility] [address] [id number] [place] [address]- 7972 Jun, [facility] [address] [id number] [place] [address]- 9161 Jun, [facility] [address] [id number] [place] [address]- 5716 Jun, [facility] [address] [id number] [place] [address]- 6501 Jun, [facility] [address] [id number] [place] [address]- 7619 Jun, [facility] [address] [id number] [place] [address]- 6141 Jun, [facility] [address] [id number] [place] [address]- 0070 Jun, [facility] [address] [id number] [place] [address]- 7155 May, [facility] [address] [id number], [place] [address]- 8548 May, [facility] [place] [facility] [address] [id number] [place] [address]- 8659 Apr, [facility] [place] [facility] [address] [id number] [place] [address]- 5715 Apr, [facility] [place] [facility] [address] [id number] [place] [address]- 0667 Apr, [facility] [place] [facility] [address] [id number] [place] [address]- 9564 Apr, [facility] [address] [id number] [place] [address]- 3157 12 Apr, 2012 [facility] [place] [facility] [address] [id number] [place] [address] 08 Apr, 2012 [facility] [place] [facility] [address] [id number] [place] [address] 07 Apr, 2012 [facility] [place] [facility] [address] [id number] [place] [address] 07 Apr, 2012 [facility] [place] [facility] [address] [id number] [place] [address] 06 Apr, 2012 [facility] [place] [facility] [address] [id number] [place] [address] Apr, [facility] [place] [facility] [address] [id number] [place] [address] Apr, [facility] [place] [facility] [address] [id number] [place] [address] 30 Mar, 2012 [facility] [place] [facility] [address] [id number] [place] [address] Mar, [facility] [place] [facility] [address] [id number], [place] [address] Mar, [facility] [place] [facility] [address] [id number], [place] [address] Mar, [facility] [place] [facility] [address] [id number], [place] [address] Mar, [facility] [place] [facility] [address] [id number] [place] [address] 2548 Mar, [facility] [place] [facility] [address] [id number], [place] [address] Mar, [facility] [place] [facility] [address] [id number], [place] [address] Mar, [facility] [place] [facility] [address] [id number], [place] [address] Mar, [facility] [address] [id number] [place] [address] 95[address] Mar, [facility] [address] [id number] [place] [address] Mar, [facility] [address] [facility] [id number] [place] [address] 97[address] Mar, [facility] [address] [id number] [place] [address] 1474 Mar, [facility] [address] [id number] [place] [address]18 Feb, [facility] [address] [id number] [place] [address] 40[address] Feb, [facility] [address] [facility] [id number] [place] [address]- 77[address] Feb, [facility] [address] [id number] [place] [address] Feb, [facility] [address] [id number] [place] [address]- 65[address] Feb, [facility] [address] [facility] [id number] [place] [address] Feb, [facility] [address] [id number] [place] [address] 10 Feb, 2012 [facility] [place] [facility] [address] [id number] [place] [address]- [address]43 10 Feb, 2012 [facility] [place] [facility] [address] [id number] [place] [address]- [address]508 10 Feb, 2012 [facility] [place] [facility] [address] [facility] [id number] [place] [address]- 1705 10 Feb, 2012 [facility] [address] [facility] [id number] [place] [address] 06 Feb, 2012 [facility] [place] [facility] [address] [id number] [place] [address]- 8107 05 Feb, 2012 [facility] [place] [facility] [address] [id number] [place] [address]- 2836 05 Feb, 2012 [facility] [place] [facility] [address] [id number] [place] [address]- 3546 Feb, [facility] [place] [facility] [address] [id number] [place] [address] 0256 Feb, [facility] [place] [facility] [address] [id number] [place] [address]- [address]70 Jan, [facility] [place] [facility] [address] [id number] [place] [address]- 8587 Jan, [facility] [place] [facility] [address] [id number] [place] [address]- 8724 Jan, [facility] [place] [facility] [address] [id number] [place] [address]- [address] Jan, [facility] [place] [facility] [address] [id number] [place] [address]- [address] Dec, [facility] [place] [facility] [address] [id number] [place] [address] Dec, [facility] [place] [facility] [address] [id number] [place] [address]- 0045 Dec, [facility] [place] [facility] [address] [id number] [place] [address]- 8236 Dec, [facility] [place] [facility] [address] [id number] [place] [address]- [address]274 Dec, [facility] [place] [facility] [address] [id number] [place] [address]- 0716 Dec, [facility] [place] [facility] [address] [id number] [place] [address]- [address]376 Dec, [facility] [place] [facility] [address] [id number] [place] [address] 16 Dec, 2011 [facility] [place] [facility] [address] [id number] [place] [address]- 9246 07 Dec, 2011 [facility] [place] [facility] [address] [id number] [place] [address]- [address]60 04 Dec, 2011 [facility] [place] [facility] [address] [id number] [place] [address]- 1354 03 Dec, 2011 [facility] [place] [facility] [address] [id number] [place] [address]- 1286 25 Sep, 2011 [facility] [place] [facility] [address] [id number] [place] [address]- 6557 24 Sep, 2011 [facility] [place] [facility] [address] [id number] [place] [address]- 5144 20 Sep, 2011 [facility] [place] [facility] [address] [id number] [place] [address]- 7784 19 Sep, 2011 [facility] [place] [facility] [address] [id number], [place] [address] 17 Sep, 2011 [facility] [place] [facility] [address] [id number] [place] [address]- 7784 16 Sep, 2011 [facility] [place] [facility] [address] [id number] [place] [address]- 5066 14 Sep, 2011 [facility] [place] [facility] [address] [id number], [place] [address] 13 Sep, 2011 [facility] [place] [facility] [address] [id number], [place] [address]- 1663 12 Sep, 2011 [facility] [place] [facility] [address] [id number] [place] [address]- 8365 07 Sep, 2011 [facility] [place] [facility] [address] [id number], [place] [address]- 8866 06 Sep, 2011 [facility] [place] [facility] [address] [id number], [place] [address]- 57[address] 06 Sep, 2011 [facility] [place] [facility] [address] [id number] [place] [address]- 0060 Nov, [facility] [place] [facility] [address] [id number] [place] [address]- [address] Oct, [facility] [place] [facility] [address] [id number] [place] [address] 2546 Oct, [facility] [place] [facility] [address] [id number] [place] [address]- 4[address] Oct, [facility] [place] [facility] [address] [id number] [place] [address]42 Oct, [facility] [place] [facility] [address] [id number] [place] [address] Oct, [facility] [place] [facility] [address] [id number] [place] [address] Oct, [facility] [place] [facility] [address] [id number] [place] [address] Oct, [facility] [place] [facility] [address] [id number] [place] [address] Oct, [facility] [place] [facility] [address] [id number] [place] [address] Oct, [facility] [place] [facility] [address] [id number] [place] [address] Oct, [facility] [place] [facility] [address] [id number] [place] [address] 2547 Oct, [facility] [place] [facility] [address] [id number] [place] [address] Sep, [facility] [place] [facility] [address] [id number] [place] [address] Sep, [facility] [place] [facility] [address] [id number] [place] [address] Sep, [facility] [place] [facility] [address] [id number] [place] [address] Sep, [facility] [place] [facility] [address] [id number] [place] [address] Sep, [facility] [place] [facility] [address] [id number] [place] [address] Sep, [facility] [address] [id number] [place] [address] Aug, [facility] [address] [id number] [place] [address] July, [facility] [address] [id number] [place] [address] July, [facility] [address] [id number] [place] [address] 1768 Jun, [facility] [address] [id number] [place] [address] Jun, [facility] [address] [id number] [place] [address] Jun, [facility] [address] [id number] [place] [address] Jun, [facility] [address] [id number] [place] [address] Jun, [facility] [place] [facility] [address] [id number] [place] [address] Jun, [facility] [place] [facility] [address] [id number] [place] [address] Jun, [facility] [place] [facility] [address] [id number] [place] [address] Jun, [facility] [place] [facility] [address] [id number] [place] [address] 2596 Jun, [facility] [place] [facility] [address] [id number] [place] [address] 3967 Jun, [facility] [place] [facility] [address] [id number] [place] [address]46 Jun, [facility] [place] [facility] [address] [id number] [place] [address] 19 May, 2011 [facility] [place] [facility] [address] [id number] [place] [address] 16 May, 2011 [facility] [place] [facility] [address] [facility] [id number] [place] [address] 14 May, 2011 [facility] [place] [facility] [address] [id number] [place] [address]46 06 May, 2011 [facility] [place] [facility] [address] [id number] [place] [address] Apr, [facility] [place] [facility] [address] [id number] [place] [address]606 Apr, [facility] [place] [facility] [address] [facility] [id number] [place] [address] Apr, [facility] [place] [facility] [address] [id number] [place] [address]67 Apr, [facility] [place] [facility] [address] [id number] [place] [address]- 3294 Apr, [facility] [place] [facility] [address] [facility] [id number] [place] [address] 1987 Apr, [facility] [place] [facility] [address] [facility] [id number] [place] [address] 38[address] Apr, [facility] [place] [facility] [address] [id number] [place] [address] 6438 Apr, [facility] [place] [facility] [address] [id number] [place] [address] Mar, [facility] [place] [facility] [address] [facility] [id number] [place] [address]- 47[address] Mar, [facility] [place] [facility] [address] [facility] [id number] [place] [address]- 9569 Mar, [facility] [place] [facility] [address] [id number] [place] [address]- [address]263 Mar, [facility] [address] [id number] [place] [address]- 119[address] Mar, [facility] [address] [id number] [place] [address] 6196 Mar, [facility] [address] [id number] [place] [address]271 Mar, [facility] [address] [id number] [place] [address]- 4[address] Mar, [facility] [address] [id number] [place] [address]687 Mar, [facility] [address] [id number] [place] [address]- [address]250 Mar, [facility] [address] [id number] [place] [address]- 9451 Mar, [facility] [address] [id number] [place] [address] 0812 Mar, [facility] [address] [id number] [place] [address]- 8408 Mar, [facility] [address] [id number] [place] [address]- 3190 Mar, [facility] [address] [id number] [place] [address]- [address]327 Mar, [facility] [address] [id number] [place] [address] 8470 Mar, [facility] [address] [id number] [place] [address] Feb, [facility] [address] [id number] [place] [address]84 Feb, [facility] [address] [id number], [place] [address] Feb, [facility] [address] [facility] [id number], [place] [address] Jan, [facility] [id number], [place] [address] Jan, [facility] [id number], [place] [address] Jan, [facility] [address] [facility] [id number] [address] Dec, [facility] [address] [facility] [id number][place] [address] Dec, [facility] [address] [id number], [place] [address] Nov, [facility] [id number], [place] [address] Oct, [facility] [id number], [place] [address] Oct, [facility] [id number], [place] [address] Oct, [facility] [id number], [place] [address] Sep, [facility] [address] [id number], [place] [address] Apr, [facility] [address] [id number], [place] [address] Feb, [facility] [address] [id number], [place] [address] Jan, IMMUNIZATIONS No Known Immunizations SOCIAL HISTORY Never Assessed REASON FOR VISIT requesting a returned call PLAN OF CARE VITAL SIGNS MEDICATIONS No [...] 2/2 Benzos OD, pneumonia MRSA, [place]RA, Hypokalemia-- [facility] 12/20/2015 Hospitalization History COPD exacerbation, Asthma-[facility] 09/21/16 Hospitalization History COPD-[facility] 12/30/2016 Hospitalization History [facility] [place] for inpatient-last around 2006 or so. Hospitalization History for COPD x2 Mar 2017 Hospitalization History Upper GI bleed at apr 2017 Hospitalization History [facility]- COPD Exacerbation, diarrhea 05/23/2017 Hospitalization History COPD exacerbation-[facility] 06/13/17 Hospitalization History CHF 09/09/2017
--- OUTSIDE RECORDS SUMMARY | 2017-11-19 12:25 | XMS REPORT ---
Author Author ALIZA CARTER Organization [facility] Address [address] [place] [address] Care Team Providers Care Three Knife Trimmer Name Role Phone ALIZA CARTER Unavailable PROBLEMS Type Condition ICD9-CM Code [id number] Code Onset Dates Condition Status SNOMED Code Problem Generalized anxiety disorder F41.1 Active 86249050 Problem Migraine without aura and without status migrainosus, not intractable G43.009 Active 860513569 Problem Other emphysema J43.8 Active 26127192 Problem Anxiety disorder, unspecified F41.9 Active 392572478 Problem Chronic obstructive pulmonary disease with acute exacerbation J44.1 Active 500162301 Problem Methamphetamine use disorder, moderate, 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 Active 98696959 Problem Chronic bronchitis, unspecified chronic bronchitis type J42 Active 94174116 Problem Intractable cyclical vomiting with nausea G43.A1 Active 17581115 Problem Diabetes E11.9 Active 303357604 Problem 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 Active Problem Tobacco abuse Z72.0 Active 50318727 Problem Examination of eyes and vision V72.0 Active 569334107 Problem Memory loss R41.3 Active 80027500 Problem Chronic constipation K59.09 Active 442849357 Problem TMJ (sprain of temporomandibular joint) S03.4XXA Active 51441964 Problem Bipolar disorder, unspecified F31.9 Active 21269499 Problem Migraine G43.909 Active 49930875 Problem Bipolar disorder with depression F31.30 Active 03072694 ALLERGIES Substance Reaction Event Type Date Status amitriptyline OD on medication, causes parasonias Non Drug Allergy May, Active Buspar 10 Mg Tablet made legs shaky Non Drug Allergy May, Active Benzodiazepines NARC ALERT Broke narc contract Non Drug Allergy May Active Narcotic NARC ALERT Broke Narc contract Non Drug Allergy May, Active ENCOUNTERS Encounter Location Date Diagnosis [facility] [address], [place] [address] Sep, [facility] [address], [place] [address] Sep, Acute congestive heart failure, unspecified heart failure type I50.9 and Anxiety disorder, unspecified F41.9 [facility] [address], [place] [address] Sep, Heart failure, unspecified HF chronicity, unspecified heart failure type I50.9 [facility] [address], [place] [address] Sep, [facility] [address], [place] [address] 5[address] Aug, Chronic obstructive pulmonary disease with acute exacerbation J44.1 [facility] [address], [place] [address] Aug, [facility] [address] [address] Aug, [facility] [address] [address] July, [facility] [address], [place] [address] July, [facility] [address], [place] [address] July, Diabetes E11.9 and Chronic obstructive pulmonary disease with acute exacerbation J44.1 [facility] [address], [place] [address] 480[address] Jun, Chronic obstructive pulmonary disease with acute exacerbation J44.1 ; Diabetes E11.9 and Tobacco abuse Z72.0 [facility] [address], [place] [address] Jun, [facility] [address], [place] [address] 3048 Jun, [facility] [id number] [place] [address] 08507- 5389 May, [facility] [id number] [place] [address] 61242- 4204 May, [facility] [id number] [place] [address] 98134 -3785 17 May, 2017 [facility] [address] [address]- 0[address] 16 May, 2017 [facility] [id number] [place] [address] 34754- 1309 15 May, 2017 [facility] [id number] [place] [address] 72069- 4430 14 May, 2017 Diarrhea, unspecified type R19.7 and Intractable cyclical vomiting with nausea G43.A1 [facility] [id number] [place] [address] 73178- 5522 May, [facility] [id number] [place] [address] 14441- 0043 05 May, 2017 [facility] [id number] [place] [address] 48855- 6286 Apr, COPD exacerbation J44.1 ; Esophageal candidiasis B37.81 ; Other acute gastritis with hemorrhage K29.01 and Acute posthemorrhagic anemia D62 [facility] [id number] [place] [address] 69450- 6743 Apr, Viral illness B34.9 and COPD exacerbation J44.1 [facility] [id number] [place] [address] 89842 -7583 Apr, Shortness of breath R06.02 and Pneumonia of both lower lobes due to infectious organism J18.9 [facility] [id number] [place] [address] 21060 -6268 Mar, COPD with acute exacerbation J44.1 [facility] [address], [place] [address] 7149 Mar, Chronic obstructive pulmonary disease with acute exacerbation J44.[address] [facility] [id number] [place] [address] 79379- 8769 Mar, [facility] [id number] [place] [address] 28661- 0568 Mar, [facility] [id number] [place] [address] 57024 -7529 Mar, COPD exacerbation J44.1 [facility] [id number] [place] [address] 25650- 5151 Mar, [facility] [id number] [place] [address] 42964- 8540 Mar, Migraine G43.909 ; Hypokalemia E87.6 and Type 2 diabetes mellitus without complications E11.9 [facility] [id number] [place] [address] 94907- 3369 Feb, 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 [id number] [place] [address] 23314- 1511 30 Jan, 2017 Major depressive disorder, recurrent, moderate F33.1 [facility] [id number] [place] [address] 41475- 0462 16 Jan, 2017 [facility] [id number] [place] [address] 40037- 5991 14 Jan, 2017 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 and Tobacco abuse Z72.0 [facility] [id number] [place] [address] 44648- 9441 Jan, [facility] [id number] [place] [address] 65173- 2556 Jan, Chronic obstructive pulmonary disease with acute exacerbation J44.1 and Diabetes E11.9 [facility] [id number] [place] [address] 34811- 3757 Jan, [facility] [id number] [place] [address] 93807- 5657 Jan, [facility] [id number] [place] [address] 11009- 2239 Dec, Acute respiratory failure with hypoxia J96.01 ; Chronic bronchitis, unspecified chronic bronchitis type J42 and Tobacco use Z72.0 [facility] [id number] [place] [address] 19602- 6430 Dec, [facility] [id number] [place] [address] [phone] Nov, Dental caries K02.9 and Dental examination Z01.20 [facility] [id number] [place] [address] 78085- 3354 Nov, Major depressive disorder, recurrent, moderate F33.1 ; Anxiety disorder, unspecified F41.9 and Other stimulant dependence with unspecified stimulant-induced disorder F15.[address] [facility] [id number] [place] [address] [phone] Oct, Dental examination Z01.20 [facility] [id number] [place] [address] 71829- 9620 Oct, [facility] [id number] [place] [address] 79068- 7614 Oct, Diabetes E11.[address] [facility] [id number] [place] [address] 02291- 8875 Oct, [facility] [id number] [place] [address] 07641- 3166 Oct, [facility] [id number] [place] [address] 43062- 9971 Oct, [facility] [id number] [place] [address] 91757- 5159 Sep, Major depressive disorder, recurrent, moderate F33.1 ; Anxiety disorder, unspecified F41.9 and Bipolar disorder, unspecified F31.9 [facility] [id number] [place] [address] 72685- 8899 Sep, Acute exacerbation of chronic obstructive pulmonary disease (COPD) J44.[address] [facility] [id number] [place] [address] 21041- 1340 Sep, [facility] [id number] [place] [id number] Sep, [facility] [address], [place] [address]- 2360 Sep, Acute exacerbation of chronic obstructive pulmonary disease (COPD) J44.1 [facility] [address], [place] [address]29 Sep, Acute exacerbation of chronic obstructive pulmonary disease (COPD) J44.1 [facility] [address], [place] [address]- 7468 Aug, 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 [id number] [place] [address] 66609- 3354 19 Aug, 2016 Wheezing R06.2 ; Non morbid obesity due to excess calories E66.09 ; Migraine without aura and without status migrainosus, not intractable G43.009 and Tobacco abuse Z72.[address] [facility] [id number] [place] [address] [id number] 14 Aug, 2016 Encounter for dental examination Z01.20 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 [id number] [place] [address] 59398- 0671 July, [facility] [id number] [place] [address] 01675- 8469 July, [facility] [id number] [place] [address] 48294- 3595 July, [facility] [id number] [place] [address] 11728- 3963 July, Diabetes E11.9 [facility] [id number] [place] [address] 45460- 9126 Jun, Major depressive disorder, recurrent, moderate F33.1 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 [id number] [place] [address] 11901- 8208 Jun, Diabetes E11.9 ; Migraine G43.909 ; Thrush B37.0 and Wheezing R06.[address] [facility] [id number] [place] [address] [id number] Jun, Dental examination Z01.20 [facility] [id number] [place] [address] 64467- 7045 Jun, 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 [id number] [place] [address] 45676- 7551 Jun, [facility] [id number] [place] [address] 90275- 6229 Jun, Wheezing R06.[address] [facility] [id number] [place] [address] [id number] Jun, Dental caries K02.9 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 [id number] [place] [address] 39569- 7160 May, [facility] [address] 09766- 8122 May, Well woman exam Z01.419 ; Breast cancer screening Z12.39 ; Cervical cancer screening Z12.4 ; Urinary frequency R35.0 ; Edema, unspecified type R60.9 and Chronic constipation K59.09 [facility] [address], [place] [address]- 6337 May, Major depressive disorder, recurrent, moderate F33.1 ; Anxiety disorder, unspecified F41.9 and Other stimulant dependence with unspecified stimulant-induced disorder F15.[address] [facility] [address] [address] May, Dental examination Z01.20 [facility] [id number] [place] [address] 08940- 2702 May, [facility] [id number] [place] [address] 31583- 7531 May, [facility] [id number] [place] [address] 47401- 9551 May, Chronic constipation K59.09 [facility] [id number] [place] [address] 19999- 0806 Apr, 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 [id number] [place] [address] 71040- 5823 Apr, [facility] [id number] [place] [address] 97094- 7055 Mar, Major depressive disorder, recurrent, moderate F33.1 [facility] [id number] [place] [address] 88465- 9830 Mar, Major depressive disorder, recurrent, moderate F33.1 ; Generalized anxiety disorder F41.1 and Bipolar I disorder, most recent episode depressed with anxious distress F31.30 [facility] [address], [place] [address]- 6093 Mar, Diabetes E11.9 ; Non morbid obesity due to excess calories E66.09 ; Breast cancer screening Z12.39 and Encounter for immunization Z23 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 [facility] [id number] [place] [address] 71353- 2070 Feb, [facility] [id number] [place] [address] 33524- 2986 Feb, [facility] [id number] [place] [address] 40554- 1645 Jan, Major depressive disorder, recurrent, moderate F33.1 ; Generalized anxiety disorder F41.1 and Bipolar disorder, current episode depressed, severe, without psychotic features F31.4 [facility] [id number] [place] [address] 60843- 7922 Jan, Major depressive disorder, recurrent, moderate F33.1 ; Anxiety disorder, unspecified F41.9 and 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 [id number] [place] [address] 58484- 5535 15 Jan, 2016 [facility] [id number] [place] [address] 15850- 2176 Jan, [facility] [id number] [place] [address] 50806- 9951 Jan, Elbow injury, right, initial encounter S59.901A ; Multiple contusions T14.8 and Cervical strain, acute, initial encounter S16.1XXA [facility] [id number] [place] [address] 62327- 0846 Dec, Major depressive disorder, recurrent, moderate F33.1 ; Generalized anxiety disorder F41.1 and Bipolar disorder with depression F31.30 [facility] [id number] [place] [address] 06704- 3739 Dec, [facility] [id number] [place] [address] 94351- 6430 Dec, [facility] [id number] [place] [address] 51916- 3945 Dec, [facility] [id number] [place] [address] 33266- 3641 Dec, [facility] [id number] [place] [address] 96668- 6323 Dec, Yeast infection B37.9 [facility] [id number] [place] [address] 42474- 0795 Dec, Pneumonia of both lungs due to methicillin resistant Staphylococcus aureus (MRSA), unspecified part of lung J15.212 and Benzodiazepine overdose, accidental or unintentional, subsequent encounter T42.4X1D [facility] [address], [place] [address]- 5276 Dec, [facility] [id number] [place] [address] 38082- 5781 Dec, [facility] [id number] [place] [address] 94524- 1612 Dec, Knee pain, left M25.562 and Edema, unspecified type R60.9 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 [facility] [id number] [place] [address] 72750- 5222 Nov, [facility] [id number] [place] [address] 45911- 6969 Nov, Migraine without aura and without status migrainosus, not intractable G43.009 [facility] [id number] [place] [address] 50374- 5481 Nov, Migraine G43.909 [facility] [id number] [place] [address] 34846- 8150 Nov, [facility] [id number] [place] [address] 33867- 4892 Nov, Major depressive disorder, recurrent, moderate F33.1 ; Anxiety disorder, unspecified F41.9 and 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 [facility] [id number] [place] [address] 39118- 1221 Oct, Chronic constipation K59.09 and Obesity, unspecified obesity severity, unspecified obesity type E66.9 [facility] [id number] [place] [address] 45139- 9489 Oct, Obesity, unspecified obesity severity, unspecified obesity type E66.9 ; Chronic constipation K59.09 and Anxiety disorder, unspecified F41.9 [facility] [id number] [place] [address] 97535- 1560 Oct, [facility] [id number] [place] [address] 31720- 9672 Sep, Diabetes E11.9 ; Edema, unspecified type R60.9 ; Varicose vein of leg I83.90 and Obesity, unspecified obesity severity, unspecified obesity type E66.9 [place] [facility] [id number] [place] [address] 22254- 1640 Sep, Edema, unspecified type R60.9 ; Diabetes E11.9 and Knee pain , left M25.562 [facility] [id number] [place] [address] 36022- 7949 Sep, [facility] [id number] [place] [address] 55998- 9058 Sep, [facility] [id number] [place] [address] 72093- 4404 Sep, Major depressive disorder, recurrent, moderate F33.1 ; Generalized anxiety disorder F41.1 and Bipolar disorder, unspecified F31.9 [facility] [id number] [place] [address] 13628- 3333 Aug, Chondromalacia of left knee M94.262 [facility] [id number] [place] [address] 46282- 2798 Aug, Major depressive disorder, recurrent, moderate F33.1 ; Anxiety disorder, unspecified F41.9 and 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 [address] [place] [id number] [place] [address] 28385- [address] July, [facility] [address] [place] [id number] [place] [address] 30429- 8138 July, Chronic constipation K59.09 [facility] [address] [place] [id number] [place] [address] [id number]- [address]255 Jun, [facility] [address] [address] Jun, [facility] [address] [address]- [address] 14 Jun, 2015 Osteoarthritis of left knee M17.9 [facility] [facility] [id number] [place] [address] 18666- 7484 Jun, [facility] [address] [address]30- 6172 Jun, Generalized anxiety disorder F41.1 ; Bipolar disorder, unspecified F31.9 and Major depressive disorder, recurrent, moderate F33.1 [facility] [id number] [place] [address] 33604- 2529 Jun, [address]43[address] [facility] [id number] [place] [address] 02328- 4938 Jun, Left knee pain M25.562 ; Chronic constipation K59.09 ; Dry mouth R68.2 ; Yeast vaginitis B37.[address] [facility] [id number] [place] [address] 27449- 8966 Jun, [facility] [address] [address]1430- 7741 May, [facility] [id number] [place] [address] 14291- 0056 May, [facility] [address] [place] [address] 7180 May, [facility] [id number] [place] [address] 68111- 0541 May, [facility] [id number] [place] [address] 64129- 7906 May, Acute bronchitis with COPD J44.0 ; Knee pain, left M25.562 and Encounter for tobacco use cessation counseling Z71.6 [facility] [id number] [place] [address] 93813- 0109 May, [facility] [id number] [place] [address] 86147- 0888 Apr, Diabetes E11.9 ; TMJ (sprain of temporomandibular joint) S03.4XXA ; Tobacco abuse Z72.0 ; Migraine G43.909 and Anxiety F41.9 [facility] [id number] [place] [address] 63136- 0752 Apr, Generalized anxiety disorder F41.1 and Bipolar disorder, unspecified F31.9 [facility] [id number] [place] [address] 92250- 1711 Apr, Major depressive disorder, recurrent, moderate F33.1 ; Anxiety disorder, unspecified F41.9 and 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 [id number] [place] [address] 27901- 3180 Feb, [facility] [id number] [place] [address] 66304- 2610 Feb, Generalized anxiety disorder F41.1 and Bipolar disorder, unspecified F31.9 [facility] [id number] [place] [address] 12944- 8642 Jan, [facility] [id number] [place] [address] 42453- 1889 Jan, [facility] [address] 13243- 6993 Jan, Bipolar disorder, unspecified F31.9 and Generalized anxiety disorder F41.1 [facility] [id number] [place] [address] 09768- 8094 Dec, [facility] [id number] [place] [address] 16852- 7749 Dec, Bipolar disorder, unspecified F31.9 and Generalized anxiety disorder F41.1 [facility] [id number] [place] [address] 16408- 6892 Dec, Generalized anxiety disorder F41.1 and Major depressive disorder, recurrent, moderate F33.1 [facility] [id number] [place] [address] 66868- 1074 Oct, Headache 784.0 ; Cough 786.2 ; Vomiting and diarrhea 787.03 and Dysuria 788.1 [facility] [id number] [place] [address] 04667- 7905 Aug, [facility] [address] 72755- 8300 Aug, Headache 784.0 and Shortness of breath 786.05 [facility] [id number] [place] [address] 37944- 1462 Aug, [facility] [place] [facility] [address] [id number] [place] [address]- 1468 Aug, Migraine 346.90 [facility] [place] [facility] [address] [id number] [place] [address]- 3198 14 Jun, 2014 [facility] [place] [facility] [address] [id number] [place] [address]- 4922 Jun, [facility] [place] [facility] [address] [id number] [place] [address]- 6198 May, [facility] [place] [facility] [address] [id number] [place] [address]- 7768 May, [facility] [place] [facility] [address] [id number] [place] [address]- 9837 May, [facility] [place] [facility] [address] [facility] [id number] [place] [address]- 5995 May, [facility] [place] [facility] [address] [id number] [place] [address]- 2241 May, [facility] [place] [facility] [address] [id number] [place] [address]- 9296 May, [facility] [place] [facility] [address] [facility] [id number] [place] [address]- 6809 Apr, [facility] [place] [facility] [address] [facility] [id number] [place] [address]- 7601 Apr, [facility] [place] [facility] [address] [id number], [place] [address]- 7943 Apr, [facility] [place] [facility] [address] [id number] [place] [address]- 0200 Apr, [facility] [place] [facility] [address] [id number] [place] [address]- 6390 Apr, [facility] [place] [facility] [address] [facility] [id number] [place] [address]- 1574 Mar, [facility] [place] [facility] [address] [id number] [place] [address]- 9577 Mar, [facility] [address] [id number] [place] [address]- 2662 Mar, [facility] [place] [facility] [address] [id number] [place] [address]- 8656 Mar, [facility] [place] [facility] [address] [id number] [place] [address]- 6923 Feb, [facility] [place] [facility] [address] [id number] [place] [address]- 0778 Feb, [facility] [place] [facility] [address] [id number] [place] [address]- 3608 Feb, [facility] [place] [facility] [address] [id number] [place] [address]- 5107 Feb, [facility] [place] [facility] [address] [id number] [place] [address]- 1536 16 Feb, 2014 [facility] [place] [facility] [address] [id number] [place] [address]- 9905 16 Feb, 2014 [facility] [place] [facility] [address] [id number] [place] [address]- 6264 Feb, [facility] [place] [facility] [address] [id number] [place] [address]- 0908 Feb, [facility] [place] [facility] [address] [id number] [place] [address]- 8435 08 Feb, 2014 [facility] [place] [facility] [address] [id number] [place] [address]- 5273 Feb, [facility] [place] [facility] [address] [id number] [place] [address]- 9130 Feb, [facility] [place] [facility] [address] [id number] [place] 2341 Feb, [facility] [place] [facility] [address] [id number] [place] [address]- 2044 Jan, [facility] [place] [facility] [address] [id number] [place] [address]- 6516 Jan, [facility] [place] [facility] [address] [id number] [place] [address]- 0006 Dec, [facility] [place] [facility] [address] [id number] [place] [address]- 7471 Dec, [facility] [place] [facility] [address] [id number] [place] [address]- 8854 Dec, [facility] [place] [facility] [address] [id number] [place] [address]- 5278 Dec, [facility] [place] [facility] [address] [id number] [place] [address]- 2478 Dec, [facility] [place] [facility] [address] [id number] [place] [address]- 0607 Dec, [facility] [place] [facility] [address] [id number] [place] [address]- 5230 Sep, [facility] [place] [facility] [address] [id number] [place] [address]- 8907 Sep, [facility] [place] [facility] [address] [id number] [place] [address]- 7723 Sep, [facility] [place] [facility] [address] [id number] [place] [address]- 0883 Sep, [facility] [place] [facility] [address] [id number] [place] [address]- 7747 Sep, [facility] [place] [facility] [address] [id number] [place] [address]- 2447 Sep, [facility] [place] [facility] [address] [id number] [place] [address]- 1449 Sep, [facility] [place] [facility] [address] [id number] [place] [address]- 7892 Sep, [facility] [place] [facility] [address] [id number] [place] [address]- 8988 Sep, [facility] [place] [facility] [address] [id number] [place] [address]- 1381 Sep, [facility] [place] [facility] [address] [id number] [place] [address]- 2712 Aug, [facility] [place] [facility] [address] [id number] [place] [address]- 1328 Aug, [facility] [place] [facility] [address] [id number] [place] [address]- 5777 Aug, [facility] [place] [facility] [address] [id number] [place] [address]- 1657 Aug, [facility] [place] [facility] [address] [id number] [place] [address]- 3644 Aug, [facility] [place] [facility] [address] [id number] [place] [address]- 7665 Aug, [facility] [place] [facility] [address] [id number] [place] [address]- 3875 Aug, [facility] [place] [facility] [address] [id number] [place] [address]- 5136 Aug, [facility] [place] [facility] [address] [id number] [place] [address]- 3864 Aug, [facility] [place] [facility] [address] [id number] [place] [address]- 3955 Aug, [facility] [place] [facility] [address] [id number] [place] [address]- 7539 Aug, [facility] [place] [facility] [address] [id number] [place] [address]- 8039 Aug, [facility] [place] [facility] [address] [id number] [place] [address]- 1864 Aug, [facility] [place] [facility] [address] [id number] [place] [address]- 1060 July, [facility] [place] [facility] [address] [id number] [place] [address]- 0411 July, [facility] [address] [id number] [place] [address]- 4173 July, [facility] [address] [id number] [place] [address]- 1215 July, [facility] [address] [id number] [place] [address]- 9280 July, [facility] [address] [id number] [place] [address]- 9180 July, [facility] [address] [id number] [place] [address]- 7966 July, [facility] [address] [id number] [place] [address]- 1057 Jun, [facility] [address] [id number] [place] [address]- 2246 Jun, [facility] [address] [id number] [place] [address]- 5458 Jun, [facility] [address] [id number] [place] [address]- 1523 Jun, [facility] [address] [id number] [place] [address]- 9962 Jun, [facility] [place] [facility] [address] [id number] [place] [address]- 3272 Jun, [facility] [address] [id number] [place] [address]- 4176 Jun, [facility] [place] [facility] [address] [id number] [place] [address]- 2109 May[facility] [place] [facility] [address] [id number] [place] [address]- 3336 May, [facility] [place] [facility] [address] [id number] [place] [address]- 4723 May, [facility] [place] [facility] [address] [id number] [place] [address]- 2394 14 May, 2013 [facility] [place] [facility] [address] [id number] [place] [address]- 0277 13 May, 2013 [facility] [place] [facility] [address] [id number] [place] [address]- 3971 13 May, 2013 [facility] [place] [facility] [address] [id number] [place] [address]- 5911 10 May, 2013 [facility] [place] [facility] [address] [id number] [place] [address]- 8969 10 May, 2013 [facility] [place] [facility] [address] [id number] [place] [address]- 6234 07 May, 2013 [facility] [place] [facility] [address] [facility] [id number] [place] [address]- 0263 26 Apr, 2013 [facility] [place] [facility] [address] [id number] [place] [address]- 9465 26 Apr, 2013 [facility] [place] [facility] [address] [id number] [place] [address]- 8029 18 Apr, 2013 [facility] [place] [facility] [address] [facility] [id number] [place] [address]- 1727 15 Apr, 2013 [facility] [place] [facility] [address] [facility] [id number] [place] [address]- 6610 15 Apr, 2013 [facility] [place] [facility] [address] [id number] [place] [address]- 7183 11 Apr, 2013 [facility] [place] [facility] [address] [id number] [place] [address]- 3799 05 Apr, 2013 [facility] [place] [facility] [address] [id number] [place] [address]- 4810 05 Apr, 2013 [facility] [place] [facility] [address] [facility] [id number] [place] [address]- 4129 05 Apr, 2013 [facility] [place] [facility] [address] [id number] [place] [address]- 1598 05 Apr, 2013 [facility] [address] [id number] [place] [address]- 0930 Mar, [facility] [place] [facility] [address] [id number] [place] [address]- 3214 Mar, [facility] [address] [id number] [place] [address]- 5947 Mar, [facility] [place] [facility] [address] [id number] [place] [address]- 2368 Mar, [facility] [address] [id number] [place] [address]- 8349 Mar, [facility] [address] [id number] [place] [address]- 1135 Mar, [facility] [address] [id number] [place] [address]- 4536 Mar, [facility] [address] [id number] [place] [address]- 2025 Mar, [facility] [address] [id number] [place] [address]- 9484 Feb, [facility] [address] [id number] [place] [address]- 3866 Feb, [facility] [place] [facility] [address] [id number] [place] [address]- 9429 Jan, [facility] [place] [facility] [address] [id number] [place] [address]- 3168 Jan, [facility] [place] [facility] [address] [id number] [place] [address]- 6646 15 Jan, 2013 [facility] [place] [facility] [address] [id number] [place] [address]- 6326 15 Jan, 2013 [facility] [place] [facility] [address] [id number] [place] [address]- 1832 Jan, [facility] [place] [facility] [address] [id number] [place] [address]- 7472 Jan, [facility] [place] [facility] [address] [id number] [place] [address]- 6119 Jan, [facility] [place] [facility] [address] [id number] [place] [address]- 9069 Jan, [facility] [place] [facility] [address] [id number] [place] [address]- 3664 Dec, [facility] [place] [facility] [address] [id number] [place] [address]- 2352 Dec, [facility] [place] [facility] [address] [id number] [place] [address]- 7600 Dec, [facility] [place] [facility] [address] [id number] [place] [address]- 3125 Nov, [facility] [place] [facility] [address] [id number] [place] [address]- 4597 Nov, [facility] [place] [facility] [address] [id number] [place] [address]- 2698 Nov, [facility] [place] [facility] [address] [id number] [place] [address]- 1723 Nov, [facility] [place] [facility] [address] [id number] [place] [address]- 8817 Nov, [facility] [place] [facility] [address] [id number], [place] [address]- 9193 Nov, [facility] [place] [facility] [address] [id number] [place] [address]- 2344 Oct, [facility] [place] [facility] [address] [id number] [place] [address]- 3285 Oct, [facility] [place] [facility] [address] [id number] [place] 8230 Sep, [facility] [place] [facility] [address] [id number] [place] [address]- 8541 Sep, [facility] [address] [id number] [place] [address]- 0919 Sep, [facility] [place] [facility] [address] [id number] [place] [address]- 2293 Sep, [facility] [address] [id number] [place] [address]- 2599 Sep, [facility] [place] [facility] [address] [id number] [place] [address]- 5351 Sep, [facility] [address] [id number] [place] [address]- 2500 Sep, [facility] [address] [id number] [place] [address]- 6989 Aug, [facility] [address] [id number] [place] [address]- 7359 Aug, [facility] [address] [id number] [place] [address]- 9443 Aug, [facility] [address] [id number] [place] [address]- 8872 Aug, [facility] [address] [id number] [place] [address]- 4206 Aug, [facility] [address] [id number] [place] [address]- 3944 Aug, [facility] [place] [facility] [address] [id number] [place] [address]- 4533 July, [facility] [place] [facility] [address] [id number] [place] [address]- 5073 July, [facility] [place] [facility] [address] [id number] [place] [address]- 8452 July, [facility] [place] [facility] [address] [id number] [place] [address]- 2414 July, [facility] [place] [facility] [address] [id number] [place] [address]- 7804 July, [facility] [address] [id number] [place] [address]- 0370 July, [facility] [place] [facility] [address] [id number] [place] [address]- 1900 Jun, [facility] [place] [facility] [address] [id number] [place] [address]- 9167 Jun, [facility] [address] [id number] [place] [address]- 6919 Jun, [facility] [place] [facility] [address] [id number] [place] [address]- 4781 Jun, [facility] [address] [id number] [place] [address]- 8152 Jun, [facility] [address] [id number] [place] [address]- 7669 Jun, [facility] [address] [id number] [place] [address]- 9435 Jun, [facility] [address] [id number] [place] [address]- 0003 May, [facility] [address] [id number] [place] [address]- 4925 May, [facility] [address] [id number] [place] [address] Apr, [facility] [place] [facility] [address] [id number] [place] [address] Apr, [facility] [place] [facility] [address] [id number] [place] [address] Apr, [facility] [place] [facility] [address] [id number] [place] [address] Apr, [facility] [place] [facility] [address] [id number] [place] [address] 12 Apr, 2012 [facility] [address] [id number] [place] [address] 08 Apr, 2012 [facility] [place] [facility] [address] [id number] [place] [address] 07 Apr, 2012 [facility] [address] [id number] [place] [address]66 07 Apr, 2012 [facility] [place] [facility] [address] [id number] [place] [address] 06 Apr, 2012 [facility] [address] [id number] [place] [address] Apr, [facility] [address] [id number] [place] [address] Apr, [facility] [address] [id number] [place] [address] 30 Mar, 2012 [facility] [address] [id number] [place] [address] Mar, [facility] [address] [id number] [place] [address] Mar, [facility] [address] [id number] [place] [address] Mar, [facility] [address] [id number] [place] [address] Mar, [facility] [place] [facility] [address] [id number], [place] [address] Mar, [facility] [place] [facility] [address] [id number] [place] [address] Mar, [facility] [place] [facility] [address] [id number] [place] [address] Mar, [facility] [place] [facility] [address] [id number], [place] [address] Mar, [facility] [place] [facility] [address] [id number] [place] [address] Mar, [facility] [address] [id number] [place] [address] Mar, [facility] [address] [id number] [place] [address] Mar, [facility] [address] [id number] [place] [address] Mar, [facility] [address] [id number] [place] [address] Feb, [facility] [address] [id number] [place] [address] Feb, [facility] [address] [id number] [place] [address]84 Feb, [facility] [address] [id number] [place] [address] Feb, [facility] [address] [id number] [place] [address] Feb, [facility] [address] [id number] [place] [address] Feb, [facility] [address] [id number] [place] [address] Feb, [facility] [address] [id number] [place] [address] Feb, [facility] [address] [id number] [place] [address] Feb, [facility] [place] [facility] [address] [id number] [place] [address] 4633 Feb, [facility] [address] [id number] [place] [address]- [address] 06 Feb, 2012 [facility] [address] [id number] [place] [address] Feb, [facility] [place] [facility] [address] [id number] [place] [address] Feb, [facility] [place] [facility] [address] [id number] [place] [address] Feb, [facility] [place] [facility] [address] [id number] [place] [address] Feb, [facility] [place] [facility] [address] [id number] [place] [address]- 1002 Jan, [facility] [place] [facility] [address] [id number] [place] [address] Jan, [facility] [place] [facility] [address] [id number] [place] [address] Jan, [facility] [place] [facility] [address] [id number] [place] [address] Jan, [facility] [place] [facility] [address] [id number] [place] [address]237 Dec, [facility] [place] [facility] [address] [id number] [place] [address]- [address] Dec, [facility] [place] [facility] [address] [id number] [place] [address]- 7784 Dec, [facility] [place] [facility] [address] [id number], [place] [address] Dec, [facility] [place] [facility] [address] [id number], [place] [address]41 Dec, [facility] [place] [facility] [address] [id number] [place] [address] Dec, [facility] [place] [facility] [address] [id number] [address] Dec, [facility] [place] [facility] [address] [id number] [place] [address] Dec, [facility] [place] [facility] [address] [id number] [place] [address]- [address] 07 Dec, 2011 [facility] [address] [id number] [place] [address]- [address]78 04 Dec, 2011 [facility] [place] [facility] [address] [id number] [place] [address]- [address]46 03 Dec, 2011 [facility] [address] [id number] [place] [address] 1646 25 Sep, 2011 [facility] [place] [facility] [address] [id number] [place] [address]- [address] 24 Sep, 2011 [facility] [address] [id number] [place] [address]- [address]60 20 Sep, 2011 [facility] [address] [id number] [place] [address]- [address]39 19 Sep, 2011 [facility] [address] [id number] [place] [address]- [address]20 17 Sep, 2011 [facility] [address] [id number] [place] [address]- [address] 16 Sep, 2011 [facility] [address] [id number] [place] [address]- [address]782 14 Sep, 2011 [facility] [facility] [address] [id number] [place] [address] 13 Sep, 2011 [facility] [place] [facility] [address] [id number] [place] [address] 12 Sep, 2011 [facility] [address] [id number] [place] [address] 07 Sep, 2011 [facility] [place] [facility] [address] [id number] [place] [address] 06 Sep, 2011 [facility] [place] [facility] [address] [id number] [place] [address] 06 Sep, 2011 [facility] [place] [facility] [address] [id number] [place] [address] Nov, [facility] [place] [facility] [address] [id number] [place] [address] Oct, [facility] [place] [facility] [address] [id number] [place] [address] Oct, [facility] [place] [facility] [address] [id number] [place] [address] Oct, [facility] [place] [facility] [address] [id number] [place] [address] Oct, [facility] [place] [facility] [address] [id number] [place] [address] Oct, [facility] [place] [facility] [address] [id number] [place] [address] Oct, [facility] [place] [facility] [address] [id number] [place] [address] Oct, [facility] [place] [facility] [address] [id number] [place] [address] Oct, [facility] [place] [facility] [address] [id number] [place] [address] Oct, [facility] [place] [facility] [address] [id number] [place] [address] Oct, [facility] [place] [facility] [address] [id number] [place] [address] Oct, [facility] [place] [facility] [address] [id number] [place] [address] Sep, [facility] [place] [facility] [address] [id number] [place] [address] Sep, [facility] [place] [facility] [address] [id number] [place] [address] Sep, [facility] [place] [facility] [address] [id number] [place] [address] Sep, [facility] [place] [facility] [address] [id number] [place] [address] Sep, [facility] [address] [id number] [place] [address] Sep, [facility] [place] [facility] [address] [id number] [place] [address] Aug, [facility] [address] [id number] [place] [address] July, [facility] [address] [id number] [place] [address] July, [facility] [address] [id number] [place] [address] Jun, [facility] [address] [id number] [place] [address] Jun, [facility] [address] [id number] [place] [address] Jun, [facility] [address] [id number] [place] [address] Jun, [facility] [address] [id number] [place] [address] 133[address] Jun, [facility] [address] [id number] [place] [address] Jun, [facility] [address] [id number] [place] [address] Jun, [facility] [place] [facility] [address] [id number] [place] [address] Jun, [facility] [place] [facility] [address] [id number] [place] [address]647 Jun, [facility] [place] [facility] [address] [id number] [place] [address] Jun, [facility] [place] [facility] [address] [id number] [place] [address]85 Jun, [facility] [place] [facility] [address] [id number] [place] [address] 19 May, 2011 [facility] [place] [facility] [address] [id number] [place] [address] 16 May, 2011 [facility] [place] [facility] [address] [id number] [place] [address] 2546 14 May, 2011 [facility] [place] [facility] [address] [id number] [place] [address] 2546 06 May, 2011 [facility] [place] [facility] [address] [id number] [place] [address] 2547 Apr, [facility] [place] [facility] [address] [id number] [place] [address] Apr, [facility] [place] [facility] [address] [id number] [place] [address] Apr, [facility] [place] [facility] [address] [id number] [place] [address]27 Apr, [facility] [place] [facility] [address] [id number] [place] [address] Apr, [facility] [place] [facility] [address] [id number] [place] [address] Apr, [facility] [place] [facility] [address] [id number] [place] [address] Apr, [facility] [place] [facility] [address] [id number] [place] [address] 65[address] Apr, [facility] [place] [facility] [address] [id number] [place] [address] 254 Mar, [facility] [place] [facility] [address] [id number] [place] [address]46 Mar, [facility] [place] [facility] [address] [id number] [place] [address] 76[address] Mar, [facility] [place] [facility] [address] [id number] [address] 18 Mar, 2011 [facility] [address] [id number] [place] [address] 17 Mar, 2011 [facility] [address] [id number] [place] [address] Mar, [facility] [address] [id number] [place] [address] Mar, [facility] [address] [id number] [place] [address] 2737 Mar, [facility] [address] [id number] [place] [address]- 1331 Mar, [facility] [address] [id number] [place] [address] 7098 Mar, [facility] [address] [id number] [place] [address] 9201 Mar, [facility] [address] [id number] [place] [address] 3854 Mar, [facility] [address] [id number] [place] [address] 1540 Mar, [facility] [address] [id number] [place] [address] 3733 Mar, [facility] [address] [id number] [place] [address]- 34[address] Mar, [facility] [address] [id number] [place] [address]- 3285 Mar, [facility] [place] [facility] [address] [id number] [place] [address] Feb, [facility] [place] [facility] [address] [id number] [place] [address]- 2163 Feb, [facility] [address] [id number] [place] [address] 8833 Feb, [facility] [place] [facility] [id number], [place] [address] Jan, [facility] [id number] [address] Jan, [facility] [id number] [address] Jan, [facility] [id number] [address] Dec, [facility] [address] [facility] [id number] [address] Dec, [facility] [id number] [place] [address] Nov, [facility] [id number] [address] Oct, [facility] [id number] [address] Oct, [facility] [id number] [address] Oct, [facility] [id number] [address] Sep, [facility] [id number] [address] Apr, [facility] [id number], [place] [address] Feb, [facility] [address] [id number], [place] [address] Jan, IMMUNIZATIONS Vaccine Route Administration Date Status PHENERGAN 50MG/ML IM Intramuscular May 20, 2017 Administered SOCIAL HISTORY Never Assessed REASON FOR VISIT Diarrhea and vomiting since Thursday. CbrumbackRN PLAN OF CARE Activity Details Follow Up prn Reason: VITAL SIGNS Height 70 in 2017-05-20 Weight 239.2 lbs 2017-05-20 Temperature 98.2 degrees Fahrenheit 2017-05-20 Heart Rate 116 bpm 2017-05-20 Respiratory Rate 24 2017-05-20 Oximetry w/ oxygen @ 2L:97 % 2017-05-20 BMI 34.32 kg/m2 2017-05-20 Blood pressure systolic 116 mmHg 2017-05-20 Blood pressure diastolic 88 mmHg 2017-05-20 MEDICATIONS Medication Instructions Dosage Frequency Start Date End Date Duration Status Spiriva HandiHaler 18 MCG Inhalation Once a day 1 capsule 24h Active Topamax 100 mg Orally Twice a [...] times a day-repository 1 capsule Dec, Active Glimepiride 1 MG Orally Once a day on the days you are taking the prednsone 1 tablet with breakfast or the first main meal of the day Mar, 30 day(s) Active Advair Diskus 250 mcg-50 mcg Inhalation Twice a day 1 puff 12h Dec, Active Carafate 1 GM Orally 4 times a day 1 tablet at bedtime on an empty stomach before meals 6h Apr, May, 30 day(s) Active Diflucan 200 mg Orally Once a day 1 tablet 24h Apr, May, 14 days Active Loperamide HCl 2 MG Orally No more than 8 caps a day 2 capsules with first stool and then 1 with each 6 subsequent stools May, Active Metamucil 43 % Orally 2 times a day 15 grams 12h May, Active Abilify 15 mg Orally Once a day 1 tablet 24h Jun, 90 days Active Trulicity 0.75 MG/0.5ML Subcutaneous once weekly 0.5 ml Jun, 90 days Active Zyrtec Allergy 10 MG Orally Once a day 1 tablet 24h Not-Taking Cymbalta 60 mg Orally Once a day 2 capsule 24h Feb, Active Ipratropium-Albuterol 0.5-2.5 (3) MG/3ML Inhalation Four times a day 3 ml as needed for Shortness of breath 6h Active Pantoprazole Sodium 40 mg Orally twice a day 1 tablet 12h Apr, 30 day(s) Active Oxygen 2Lt by inhalation route 24 hours Active Zofran ODT 8 MG Orally every 6 hours as needed for Nausea and vomiting as directed May, Active Metoprolol Tartrate 25 MG Orally 2 times a day 1/2 tablet 12h Active RESULTS No Results PROCEDURES Procedure Date Ordered Result Body Site PHENERGAN 50MG/ML May 20, 2017 THER/PROPH/DIAG INJ, SC/IM May 20, 2017 INSTRUCTIONS MEDICATIONS ADMINISTERED No Known Medications MEDICAL (GENERAL) HISTORY Type Description Date Medical History COPD Medical History asthma Medical History heart cath Medical History Social phobia Medical History MRSA in right lung Medical History diabetes Medical History Echo 09/07/2017 Medical History History of MRSA infection Medical History congestive heart failure Surgical History heart cath 03/2015 Hospitalization History for surgeries Hospitalization History AMS / Benzos OD, pneumonia MRSA, [facility], Hypokalemia-- [facility] 12/20/2015 Hospitalization History COPD exacerbation, Asthma-[facility] 09/21/16 Hospitalization History COPD-[facility] 12/30/2016 Hospitalization History [facility] [place] [facility]-last around 2006 or so. Hospitalization History for COPD x2 Mar 2017 Hospitalization History Upper GI bleed at apr 2017 Hospitalization History [facility]- COPD Exacerbation, diarrhea 05/23/2017 Hospitalization History COPD exacerbation-[facility] 06/13/17 Hospitalization History CHF 09/09/2017
--- OUTSIDE RECORDS SUMMARY | 2017-11-19 12:27 | XMS REPORT ---
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 Active 61094842 Problem Chronic bronchitis, unspecified chronic bronchitis type J42 Active 58950897 Problem Intractable cyclical vomiting with nausea G43.A1 Active 13842797 Problem Diabetes E11.9 Active 768721868 Problem 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 Active Problem Tobacco abuse Z72.0 Active 53102323 Problem Examination of eyes and vision V72.0 Active 784051605 Problem Memory loss R41.3 Active 97098584 Problem Chronic constipation K59.09 Active 416418359 Problem TMJ (sprain of temporomandibular joint) S03.4XXA Active 38339198 Problem Bipolar disorder, unspecified F31.9 Active 54118373 Problem Migraine G43.909 Active 27213652 Problem Bipolar disorder with depression F31.30 Active 41713912 ALLERGIES No Information ENCOUNTERS Encounter Location Date Diagnosis [facility] [id number], [place] [address] Sep, [facility] [place] [id number] [address] Sep, Acute congestive heart failure, unspecified heart failure type I50.9 and Anxiety disorder, unspecified F41.9 [facility] [place] [address] [address] Sep, Heart failure, unspecified HF chronicity, unspecified heart failure type I50.9 [facility] [place] [address] [facility] [id number] [address] Sep, [facility] [place] [id number] [address] Aug, Chronic obstructive pulmonary disease with acute exacerbation J44.1 [facility] [place] [address] [facility] [id number] [address] Aug, [facility] [place] [address] [address] Aug, [facility] [place] [address] [address] July, [facility] [place] [address] [address] 18[address] July, [facility] [place] [address] [address] July, Diabetes E11.9 and Chronic obstructive pulmonary disease with acute exacerbation J44.1 [facility] [place] [address] [address] Jun, Chronic obstructive pulmonary disease with acute exacerbation J44.1 ; Diabetes E11.9 and Tobacco abuse Z72.0 [facility] [place] [address], [place] [address] Jun, [facility] [place] [address] [address] 1810 Jun, [facility] [place] [address] [address] 1143 May, [facility] [place] [address] [address] May, [facility] [id number] [place] [address] 75659 -2341 17 May, 2017 [facility] [place] [id number] [place] [address] 27716- 9536 16 May, 2017 [facility] [place] [id number] [place] [address] 68003- 0597 15 May, 2017 [facility] [place] [address] [address]- [address]65 14 May, 2017 Diarrhea, unspecified type R19.7 and Intractable cyclical vomiting with nausea G43.A1 [facility] [place] [id number] [place] [address] 64481- 8468 12 May, 2017 [facility] [place] [id number] [place] [address] 37667- 2747 05 May, 2017 [facility] [place] [id number] [place] [address] 35482- 9431 28 Apr, 2017 COPD exacerbation J44.1 ; Esophageal candidiasis B37.81 ; Other acute gastritis with hemorrhage K29.01 and Acute posthemorrhagic anemia D62 [facility] [place] [id number] [place] [address] 10747- 2974 Apr, Viral illness B34.9 and COPD exacerbation J44.1 [facility] [id number] [place] [address] 20406 -2310 Apr, Shortness of breath R06.02 and Pneumonia of both lower lobes due to infectious organism J18.9 [facility] [id number] [place] [address] 01590 -3020 Mar, COPD with acute exacerbation J44.1 [facility] [place] [id number] [place] [address] 81125- 6615 Mar, Chronic obstructive pulmonary disease with acute exacerbation J44.1 and Diabetes E11.9 [facility] [place] [id number] [place] [address] 72575- 3284 Mar, [facility] [place] [address] [place] [address] 49059- 5781 Mar, [facility] [id number] [place] [address] 90200 -9357 Mar, COPD exacerbation J44.1 [facility] [place] [id number] [place] [address] 24078- 1971 Mar, [facility] [place] [address] [address]- 9252 Mar, Migraine G43.909 ; Hypokalemia E87.6 and Type 2 diabetes mellitus without complications E11.9 [facility] [id number] [place] [address] 58431- 8790 Feb, [facility] [id number] [place] [address] 01989- 8094 Feb, [facility] [id number] [place] [address] 47390- 3654 Feb, Methamphetamine use disorder, moderate, 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 ; Major depressive disorder, recurrent, moderate F33.1 ; Anxiety disorder, unspecified F41.9 and Tobacco abuse Z72.0 [facility] [id number] [place] [address] 44720- 2864 30 Jan, 2017 Major depressive disorder, recurrent, moderate F33.1 [facility] [id number] [place] [address] 01949- 8163 16 Jan, 2017 [facility] [id number] [place] [address] 23651- 0066 14 Jan, 2017 [facility] [id number] [place] [address] 08779- 6246 Jan, Major depressive disorder, recurrent, moderate F33.1 [facility] [id number] [place] [address] 81371- 9331 13 Jan, 2017 Major depressive disorder, recurrent, moderate F33.1 ; Anxiety disorder, unspecified F41.9 ; Methamphetamine use disorder, moderate, 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 and Tobacco abuse Z72.0 [facility] [place] [id number] [place] [address] 62065- 9587 Jan, [facility] [place] [id number] [place] [address] 69422- 4504 Jan, Chronic obstructive pulmonary disease with acute exacerbation J44.1 and Diabetes E11.9 [facility] [id number] [place] [address] 96983- 1497 Jan, [facility] [id number] [place] [address] 77203- 4899 Jan, [facility] [id number] [place] [address] 39452- 0241 Dec, Acute respiratory failure with hypoxia J96.01 ; Chronic bronchitis, unspecified chronic bronchitis type J42 and Tobacco use Z72.0 [facility] [id number] [place] [address] 03274- 6473 Dec, [facility] [id number] [place] [address] [id number] Nov, Dental caries K02.9 and Dental examination Z01.20 [facility] [id number] [place] [address] 46763- 9094 Nov, Major depressive disorder, recurrent, moderate F33.1 ; Anxiety disorder, unspecified F41.9 and 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 [facility] [id number] [place] [address] [id number] Oct, Dental examination Z01.20 [facility] [place] [id number] [place] [address] 80849- 6822 Oct, [facility] [place] [id number] [place] [address] 96728- 1982 Oct, Diabetes E11.9 and Thrush B37.0 [facility] [place] [address] 35267- 9085 Oct, [facility] [address], [place] [address]- 2275 Oct, [facility] [address] [place] [address] 92006- 2278 Oct, [facility] [address], [place] [address]- 5046 Sep, Major depressive disorder, recurrent, moderate F33.1 ; Anxiety disorder, unspecified F41.9 and Bipolar disorder, unspecified F31.9 [facility] [address], [place] [address]- 1874 Sep, Acute exacerbation of chronic obstructive pulmonary disease (COPD) J44.1 and Migraine G43.909 [facility] [address], [place] [address]- 2681 Sep, [facility] [id number] [place] [address] [id number] Sep, [facility] [place] [address] [place] [address] 72773- 9512 Sep, Acute exacerbation of chronic obstructive pulmonary disease (COPD) J44.1 [facility] [address] [address]71 Sep, Acute exacerbation of chronic obstructive pulmonary disease (COPD) J44.1 [facility] [address], [place] [address]- 9566 Aug, [facility] [place] [address], [place] [address]- 3423 Aug, Major depressive disorder, recurrent, moderate F33.1 ; Anxiety disorder, unspecified F41.9 and 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 [facility] [place] [address], [place] [address]- 7361 Aug, Wheezing R06.2 ; Non morbid obesity due to excess calories E66.09 ; Migraine without aura and without status migrainosus, not intractable G43.009 and Tobacco abuse Z72.0 [facility] [address] [place] [address] [id number] 14 Aug, 2016 Encounter for dental examination Z01.20 [facility] [place] [id number] [place] [address] 34047- 5888 02 Aug, 2016 Major depressive disorder, recurrent, moderate F33.1 ; Anxiety disorder, unspecified F41.9 and 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 [facility] [place] [id number] [place] [address] 61179- 0811 July, [facility] [place] [address] 39101- 7591 July, [facility] [place] [id number] [place] [address] 41378- 6193 July, [facility] [place] [id number] [place] [address] 15261- 7881 July, Diabetes E11.9 [facility] [place] [id number] [place] [address] 18901- 2819 Jun, Major depressive disorder, recurrent, moderate F33.1 [facility] [place] [id number] [place] [address] 80984- 1450 Jun, Major depressive disorder, recurrent, moderate F33.1 ; 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 ; Generalized anxiety disorder F41.1 and Bipolar disorder, unspecified F31.9 [facility] [place] [address] [place] [address] 69848- 1447 Jun, Diabetes E11.9 ; Migraine G43.909 ; Thrush B37.0 and Wheezing R06.2 [facility] [id number] [place] [address] [id number] Jun, Dental examination Z01.20 [facility] [place] [id number] [place] [address] 97525- 6130 Jun, [facility] [address], [place] [address]- 4428 Jun, Major depressive disorder, recurrent, moderate F33.1 ; Anxiety disorder, unspecified F41.9 and 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 [facility] [address], [place] [address]- 4325 Jun, [facility] [id number] [place] [address] 52573- 7520 Jun, Wheezing R06.2 [facility] [id number] [place] [address] [phone] Jun, Dental caries K02.9 [facility] [id number] [place] [address] 11369- 6398 Jun, Major depressive disorder, recurrent, moderate F33.1 ; Anxiety disorder, unspecified F41.9 and 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 [facility] [address] [place] [address] 38393- 5762 Jun, RLQ abdominal pain R10.31 ; Diabetes E11.9 ; Obesity, unspecified obesity severity, unspecified obesity type E66.9 ; Wheezing R06.2 and Abnormal urinalysis R82.90 [facility] [address] [place] [address] 66313- 4091 May, [facility] [id number] [place] [address] 42007- 6583 May, Well woman exam Z01.419 ; Breast cancer screening Z12.39 ; Cervical cancer screening Z12.4 ; Urinary frequency R35.0 ; Edema, unspecified type R60.9 and Chronic constipation K59.09 [facility] [address] [place] [address] 07892- 4649 May, Major depressive disorder, recurrent, moderate F33.1 ; Anxiety disorder, unspecified F41.9 and 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 [facility] [id number] [id number] 07 May, 2016 Dental examination Z01.20 [facility] [id number] [place] [address] 47999- 5772 May, [facility] [place] [address] [place] [address] 80263- 9012 May, [facility] [id number] [place] [address] 01231- 6936 May, Chronic constipation K59.09 [facility] [id number] [place] [address] 71393- 8775 Apr, [facility] [id number] [place] [address] 99333- 7059 Apr, Major depressive disorder, recurrent, moderate F33.1 ; Anxiety disorder, unspecified F41.9 and 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 [facility] [address] [place] [address] 57196- 6288 Apr, [facility] [place] [id number] [place] [address] 51774- 4377 Mar, Major depressive disorder, recurrent, moderate F33.1 [facility] [address] [place] [address] 20256- 3978 Mar, Major depressive disorder, recurrent, moderate F33.1 ; Generalized anxiety disorder F41.1 and Bipolar I disorder, most recent episode depressed with anxious distress F31.30 [facility] [address] [place] [address] 25192- 1603 Mar, Diabetes E11.9 ; Non morbid obesity due to excess calories E66.09 ; Breast cancer screening Z12.39 and Encounter for immunization Z23 [facility] [place] [address] [place] [address] 51805- 7885 Mar, Major depressive disorder, recurrent, moderate F33.1 ; Anxiety disorder, unspecified F41.9 and 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 [facility] [place] [address] [place] [address] 81772- 4990 Mar, [facility] [place] [id number] [place] [address] 348925- 216 Feb, Major depressive disorder, recurrent, moderate F33.1 ; Anxiety disorder, unspecified F41.9 and 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 [facility] [place] [id number] [place] [address] 99212- 5677 Feb, [facility] [place] [id number] [place] [address] 04193- 4501 Feb, [facility] [place] [id number] [place] [address] 02917- 1113 Jan, Major depressive disorder, recurrent, moderate F33.1 ; Generalized anxiety disorder F41.1 and Bipolar disorder, current episode depressed, severe, without psychotic features F31.4 [facility] [address] [place] [address] 23028- 8663 Jan, Major depressive disorder, recurrent, moderate F33.1 ; Anxiety disorder, unspecified F41.9 and 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 [facility] [address] [place] [address] 99532- 3977 16 Jan, 2016 Bronchitis J40 [facility] [place] [address] [place] [address] 23780- 5909 15 Jan, 2016 [facility] [place] [address] [place] [address] 74705- 9337 Jan, [facility] [place] [id number] [place] [address] 845484- 9121 Jan, Elbow injury, right, initial encounter S59.901A ; Multiple contusions T14.8 and Cervical strain, acute, initial encounter S16.1XXA [facility] [place] [id number] [place] [address] 29236- 9253 Dec, Major depressive disorder, recurrent, moderate F33.1 ; Generalized anxiety disorder F41.1 and Bipolar disorder with depression F31.30 [facility] [place] [address] [address]- 7289 Dec, [facility] [place] [address], [place] [address]- 8669 Dec, [facility] [place] [id number] [place] [address] 83661- 5255 Dec, [facility] [place] [address] [place] [address] 48532- 4294 Dec, [facility] [place] [address] [place] [address] 39044- 6419 Dec, Yeast infection B37.9 [facility] [address] [address]- 6406 Dec, Pneumonia of both lungs due to methicillin resistant Staphylococcus aureus (MRSA), unspecified part of lung J15.212 and Benzodiazepine overdose, accidental or unintentional, subsequent encounter T42.4X1D [facility] [address] [place] [address] 04873- 3172 Dec, [facility] [place] [address] [place] [address] 37985- 0198 Dec, [facility] [address] [place] [address] 06929- 6683 Dec, Knee pain, left M25.562 and Edema, unspecified type R60.9 [facility] [place] [address], [place] [address]- 4100 Dec, [facility] [place] [address] [place] [address] 43005- 2972 Dec, Anxiety disorder, unspecified F41.9 and Bipolar disorder, unspecified F31.9 [facility] [place] [id number] [place] [address] Nov, Major depressive disorder, recurrent, moderate F33.1 ; Anxiety disorder, unspecified F41.9 and 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 [facility] [id number] [place] [address]- [address] Nov, [facility] [id number] [place] [address]222- [address]288 Nov, Migraine without aura and without status migrainosus, not intractable G43.009 [facility] [id number] [place] [address]4915- [address]45 Nov, Migraine G43.909 [facility] [id number] [place] [address] 58805- [address]50 Nov, [facility] [id number] [place] [address] 59564- 8912 Nov, Major depressive disorder, recurrent, moderate F33.1 ; Anxiety disorder, unspecified F41.9 and 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 [facility] [id number] [place] [address] 62[address]- 6869 Oct, Chronic constipation K59.09 and Obesity, unspecified obesity severity, unspecified obesity type E66.9 [facility] [id number] [place] [address] 53533- 3990 Oct, Obesity, unspecified obesity severity, unspecified obesity type E66.9 ; Chronic constipation K59.09 and Anxiety disorder, unspecified F41.9 [facility] [id number] [place] [address] 38337- 9589 Oct, [facility] [id number] [place] [address] 02431- [address]953 Sep, Diabetes E11.9 ; Edema, unspecified type R60.9 ; Varicose vein of leg I83.90 and Obesity, unspecified obesity severity, unspecified obesity type E66.9 [facility] [id number] [place] [address] 20239- 8863 Sep, Edema, unspecified type R60.9 ; Diabetes E11.9 and Knee pain , left M25.562 [facility] [facility] [place] [id number] [place] [address] 28962- 9923 Sep, [facility] [place] [id number] [place] [address] 33000- 1832 Sep, [facility] [place] [id number] [place] [address] 43658- 2804 Sep, Major depressive disorder, recurrent, moderate F33.1 ; Generalized anxiety disorder F41.1 and Bipolar disorder, unspecified F31.9 [facility] [place] [id number] [place] [address] 94251- 2698 Aug, Chondromalacia of left knee M94.262 [facility] [place] [id number] [place] [address] 07683- 2146 Aug, Major depressive disorder, recurrent, moderate F33.1 ; Anxiety disorder, unspecified F41.9 and 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 [facility] [id number] [place] [address] 86207- 8022 Aug, [facility] [place] [id number] [place] [address] 82375- 4469 Aug, Osteoarthritis of left knee M17.9 [facility] [place] [id number] [place] [address] 83695- 6275 Aug, [facility] [place] [id number] [place] [address] 64597- 5251 July, Major depressive disorder, recurrent, moderate F33.1 ; Anxiety disorder, unspecified F41.9 and 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 [facility] [place] [id number] [place] [address] 22634- 4960 July, [facility] [place] [id number] [place] [address] 46723- 2080 July, Chronic constipation K59.09 [facility] [place] [address] [address] 1149 Jun, [facility] [place] [id number] [place] [address] 45884- 3201 15 Jun, 2015 [facility] [place] [id number] [place] [address] 17006- 7211 14 Jun, 2015 Osteoarthritis of left knee M17.9 [facility] [place] [id number] [place] [address] 64021- 6838 Jun, [facility] [place] [id number] [place] [address] 39177- 3652 13 Jun, 2015 Generalized anxiety disorder F41.1 ; Bipolar disorder, unspecified F31.9 and Major depressive disorder, recurrent, moderate F33.1 [facility] [place] [id number] [place] [address] 53837- 7708 Jun, Migraine G43.909 [facility] [place] [id number] [place] [address] 64013- 1349 07 Jun, 2015 Left knee pain M25.562 ; Chronic constipation K59.09 ; Dry mouth R68.2 ; Yeast vaginitis B37.3 and Memory loss R41.3 [facility] [place] [address] [address]- 6782 Jun, [facility] [place] [address] [address]- 6154 30 May, 2015 [facility] [place] [id number] [place] [address] 96360- 2484 May, [facility] [place] [id number] [place] [address] 45727- 5572 May, [facility] [place] [address] [address]- 7074 May, [facility] [place] [id number] [place] [address] 65601- 0542 May, Acute bronchitis with COPD J44.0 ; Knee pain, left M25.562 and Encounter for tobacco use cessation counseling Z71.6 [facility] [id number] [place] [address] 99942- 2315 May, [facility] [id number] [place] [address] 38433- 2881 Apr, Diabetes E11.9 ; TMJ (sprain of temporomandibular joint) S03.4XXA ; Tobacco abuse Z72.0 ; Migraine G43.909 and Anxiety F41.9 [facility] [id number] [place] [address] 40177- 2751 Apr, Generalized anxiety disorder F41.1 and Bipolar disorder, unspecified F31.9 [facility] [id number] [place] [address] 74931- 7380 Apr, Major depressive disorder, recurrent, moderate F33.1 ; Anxiety disorder, unspecified F41.9 and 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 [facility] [id number] [place] [address] 63652- 1157 Apr, [facility] [id number] [place] [address] 56005- 3159 Mar, [facility] [id number] [place] [address] 88815- 9686 Feb, [facility] [id number] [place] [address] 72885- 5601 Feb, Major depressive disorder, recurrent, moderate F33.1 ; Anxiety disorder, unspecified F41.9 and 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 [facility] [id number] [place] [address] 14254- 5125 Feb, [facility] [id number] [place] [address] 01149- 9037 Feb, Generalized anxiety disorder F41.1 and Bipolar disorder, unspecified F31.9 [facility] [place] [address] [address]- 4099 Jan, [facility] [place] [id number] [place] [address] 710867- 5214 Jan, [facility] [place] [id number] [place] [address] 13477- 9943 Jan, Bipolar disorder, unspecified F31.9 and Generalized anxiety disorder F41.1 [facility] [place] [id number] [place] [address] 57268- 4568 Dec, [facility] [place] [id number] [place] [address] 52988- 0746 Dec, Bipolar disorder, unspecified F31.9 and Generalized anxiety disorder F41.1 [facility] [id number] [place] [address] 26879- 5190 Dec, Generalized anxiety disorder F41.1 and Major depressive disorder, recurrent, moderate F33.1 [facility] [place] [id number] [place] [address] 10779- 9063 Oct, Headache 784.0 ; Cough 786.2 ; Vomiting and diarrhea 787.03 and Dysuria 788.1 [facility] [place] [id number] [place] [address] 20110- 5305 Aug, [facility] [place] [id number] [place] [address] 05012- 6960 Aug, Headache 784.0 and Shortness of breath 786.05 [facility] [place] [id number] [place] [address] 96907- 9914 Aug, [facility] [place] [id number] [place] [address] 49973- 2831 Aug, Migraine 346.90 [facility] [place] [id number] [place] [address] 44824- 4894 Jun, [facility] [place] [id number] [address]- 3287 13 Jun, 2014 [facility] [place] [facility] [address] [id number] [place] [address]- 5001 May, [facility] [place] [facility] [address] [id number] [place] [address]- 7266 May, [facility] [place] [facility] [address] [id number] [place] [address]- 6911 May, [facility] [place] [facility] [address] [id number] [place] [address]- 3435 May, [facility] [place] [facility] [address] [id number] [place] [address]- 1520 May, [facility] [place] [facility] [address] [facility] [id number] [place] [address]- 5011 May, [facility] [place] [facility] [address] [facility] [id number] [place] [address]- 5677 Apr, [facility] [place] [facility] [address] [id number] [place] [address]- 2441 Apr, [facility] [place] [facility] [address] [facility] [id number] [place] [address]- 6464 Apr, [facility] [place] [facility] [address] [facility] [id number] [place] [address]- 4037 Apr, [facility] [place] [facility] [address] [facility] [id number] [place] [address]- 1006 Apr, [facility] [place] [facility] [address] [id number] [place] [address]- 7308 Mar, [facility] [place] [facility] [address] [id number] [place] [address]- 5174 Mar, [facility] [place] [facility] [address] [facility] [id number] [place] [address]- 9366 Mar, [facility] [place] [facility] [address] [facility] [id number] [place] [address]- 1687 Mar, [facility] [place] [facility] [address] [id number] [place] [address]- 8398 Feb, [facility] [place] [facility] [address] [id number] [place] [address]- 2767 Feb, [facility] [place] [facility] [address] [id number] [place] [address]- 5750 Feb, [facility] [place] [facility] [address] [id number] [place] [address]- 2569 Feb, [facility] [place] [facility] [address] [id number] [place] [address]- 8757 Feb, [facility] [place] [facility] [address] [id number] [place] [address]- 9498 Feb, [facility] [place] [facility] [address] [id number] [place] [address]- 5953 Feb, [facility] [place] [facility] [address] [id number] [place] [address]- 9135 Feb, [facility] [place] [facility] [address] [id number] [place] [address]- 4200 Feb, [facility] [place] [facility] [address] [id number] [place] [address]- 8088 Feb, [facility] [place] [facility] [address] [id number] [place] [address]- 0639 Feb, [facility] [place] [facility] [address] [id number], [place] [address]- 9258 Feb, [facility] [place] [facility] [address] [id number] [place] [address]- 8094 Jan, [facility] [place] [facility] [address] [id number] [place] [address]- 1825 Jan, [facility] [place] [facility] [address] [id number] [place] [address]- 0141 10 Dec, 2013 [facility] [place] [facility] [address] [id number] [place] [address]- 2705 Dec, [facility] [place] [facility] [address] [id number] [place] [address]- 4562 Dec, [facility] [place] [facility] [address] [id number] [place] 6251 Dec, [facility] [place] [facility] [address] [id number] [place] [address]- 4110 Dec, [facility] [place] [facility] [address] [id number] [place] [address]- 5892 Dec, [facility] [place] [facility] [address] [id number] [place] [address]- 9211 Sep, [facility] [place] [facility] [address] [id number] [place] [address]- 4205 Sep, [facility] [place] [facility] [address] [id number] [place] [address]- 3275 Sep, [facility] [place] [facility] [address] [id number] [place] [address]- 2738 Sep, [facility] [place] [facility] [address] [id number] [place] [address]- 8635 Sep, [facility] [place] [facility] [address] [id number] [place] [address]- 1623 Sep, [facility] [place] [facility] [address] [id number] [place] [address]- 6880 Sep, [facility] [place] [facility] [address] [id number] [place] [address]- 5057 Sep, [facility] [place] [facility] [address] [id number] [place] [address]- 2500 Sep, [facility] [place] [facility] [address] [id number] [place] [address]- 6611 Sep, [facility] [place] [facility] [address] [id number] [place] [address]- 9972 Aug, [facility] [place] [facility] [address] [id number] [place] [address]- 3639 Aug, [facility] [place] [facility] [address] [id number] [place] [address]- 1405 Aug, [facility] [place] [facility] [address] [id number] [place] [address]- 9018 Aug, [facility] [place] [facility] [address] [id number] [place] [address]- 0525 Aug, [facility] [place] [facility] [address] [id number] [place] [address]- 2719 Aug, [facility] [place] [facility] [address] [id number] [place] [address]- 7540 Aug, [facility] [place] [facility] [address] [id number] [place] [address]- 3117 Aug, [facility] [place] [facility] [address] [id number] [place] [address]- 5015 Aug, [facility] [place] [facility] [address] [id number] [place] [address]- 7105 Aug, [facility] [place] [facility] [address] [id number] [place] [address]- 8922 Aug, [facility] [place] [facility] [address] [id number] [place] [address]- 5755 Aug, [facility] [place] [facility] [address] [id number] [place] [address]- 0199 Aug, [facility] [place] [facility] [address] [id number] [place] [address]- 9781 July, [facility] [place] [facility] [address] [id number] [place] [address]- 8074 July, [facility] [place] [facility] [address] [id number] [place] [address]- 4083 July, [facility] [place] [facility] [address] [id number] [place] [address]- 5736 July, [facility] [place] [facility] [address] [id number] [place] [address]- 1490 July, [facility] [place] [facility] [address] [id number] [place] [address]- 6052 July, [facility] [place] [facility] [address] [id number] [place] [address]- 7973 July, [facility] [place] [facility] [address] [id number] [place] [address]- 9885 Jun, [facility] [place] [facility] [address] [id number] [place] [address]- 4371 Jun, [facility] [place] [facility] [address] [id number] [place] [address]- 6925 Jun, [facility] [place] [facility] [address] [id number] [place] [address]- 9211 Jun, [facility] [place] [facility] [address] [id number] [place] [address]- 5735 Jun, [facility] [place] [facility] [address] [id number] [place] [address]- 9942 Jun, [facility] [place] [facility] [address] [id number] [place] [address]- 3389 Jun, [facility] [place] [facility] [address] [id number] [place] [address]- 6117 17 May, 2013 [facility] [place] [facility] [address] [id number] [place] [address]- 7618 17 May, 2013 [facility] [place] [facility] [address] [id number] [place] [address]- 6828 14 May, 2013 [facility] [place] [facility] [address] [id number] [place] [address]- 2013 14 May, 2013 [facility] [place] [facility] [address] [id number] [place] [address]- 8870 13 May, 2013 [facility] [place] [facility] [address] [id number] [place] [address]- 8369 13 May, 2013 [facility] [place] [facility] [address] [id number] [place] [address]- 0190 10 May, 2013 [facility] [place] [facility] [address] [id number] [place] [address]- 8471 10 May, 2013 [facility] [place] [facility] [address] [id number] [place] [address]- 7823 07 May, 2013 [facility] [place] [facility] [address] [id number] [place] [address]- 5273 Apr, [facility] [place] [facility] [address] [id number] [place] [address]- 2101 Apr, [facility] [place] [facility] [address] [facility] [id number] [place] [address]- 8546 18 Apr, 2013 [facility] [place] [facility] [address] [id number] [place] [address]- 1565 15 Apr, 2013 [facility] [place] [facility] [address] [id number] [place] [address]- 3147 Apr, [facility] [place] [facility] [address] [facility] [id number] [place] [address]- 4280 Apr, [facility] [place] [facility] [address] [facility] [id number] [place] [address]- 9452 Apr, [facility] [place] [facility] [address] [facility] [id number] [place] [address]- 0788 Apr, [facility] [place] [facility] [address] [id number] [place] [address]- 3707 Apr, [facility] [place] [facility] [address] [id number] [place] [address]- 0662 05 Apr, 2013 [facility] [place] [facility] [address] [id number] [place] [address]- 7458 Mar, [facility] [place] [facility] [address] [facility] [id number], [place] [address]- 4637 Mar, [facility] [place] [facility] [address] [id number] [place] [address]- 0374 Mar, [facility] [place] [facility] [address] [id number] [place] [address]- 1212 Mar, [facility] [place] [facility] [address] [id number] [place] [address]- 0458 Mar, [facility] [place] [facility] [address] [id number] [place] [address]- 1107 Mar, [facility] [place] [facility] [address] [id number] [place] [address]- 3125 Mar, [facility] [place] [facility] [address] [id number] [place] [address]- 7835 Mar, [facility] [place] [facility] [address] [id number] [place] [address]- 5885 Feb, [facility] [place] [facility] [address] [id number] [place] [address]- 0834 Feb, [facility] [place] [facility] [address] [id number] [place] [address]- 8587 Jan, [facility] [place] [facility] [address] [id number] [place] [address]- 9526 Jan, [facility] [place] [facility] [address] [id number], [place] [address]- 4441 15 Jan, 2013 [facility] [place] [facility] [address] [id number], [place] [address]- 4198 15 Jan, 2013 [facility] [place] [facility] [address] [id number] [place] [address]- 9284 Jan, [facility] [place] [facility] [address] [id number] [place] [address]- 9730 Jan, [facility] [place] [facility] [address] [id number] [place] [address]- 4788 05 Jan, 2013 [facility] [place] [facility] [address] [id number] [place] [address]- 3398 05 Jan, 2013 [facility] [address] [id number] [place] [address]- 4840 Dec, [facility] [place] [facility] [address] [id number] [place] [address]- 9386 Dec, [facility] [address] [id number] [place] [address]- 0106 10 Dec, 2012 [facility] [place] [facility] [address] [id number] [place] [address]- 7055 20 Nov, 2012 [facility] [address] [id number] [place] [address]- 6376 13 Nov, 2012 [facility] [place] [facility] [address] [id number] [place] [address] 12 Nov, 2012 [facility] [place] [facility] [address] [id number] [place] [address] 09 Nov, 2012 [facility] [address] [id number] [place] [address] 06 Nov, 2012 [facility] [place] [facility] [address] [id number] [place] [address] Nov, [facility] [address] [id number] [place] [address] Oct, [facility] [place] [facility] [address] [id number] [place] [address] Oct, [facility] [place] [facility] [address] [id number] [place] [address] Sep, [facility] [place] [facility] [address] [id number] [place] [address] Sep, [facility] [place] [facility] [address] [id number] [place] [address] Sep, [facility] [place] [facility] [address] [id number] [place] [address] Sep, [facility] [address] [id number] [place] [address] Sep, [facility] [place] [facility] [address] [id number] [place] [address] Sep, [facility] [place] [facility] [address] [id number] [place] [address] Sep, [facility] [place] [facility] [address] [id number] [place] [address] Aug, [facility] [place] [facility] [address] [id number] [place] [address]- [address] Aug, [facility] [place] [facility] [address] [id number] [place] [address] Aug, [facility] [place] [facility] [address] [id number] [place] [address] Aug, [facility] [place] [facility] [address] [id number] [place] [address] Aug, [facility] [place] [facility] [address] [id number] [place] [address]- [address] Aug, [facility] [place] [facility] [address] [id number] [place] [address] July, [facility] [place] [facility] [address] [id number] [place] [address] July, [facility] [place] [facility] [address] [id number] [place] [address]- 8767 July, [facility] [place] [facility] [address] [id number] [place] [address] July, [facility] [place] [facility] [address] [id number] [place] [address]- [address] July, [facility] [place] [facility] [address] [id number] [place] [address] 4[address] July, [facility] [place] [facility] [address] [id number] [place] [address] Jun, [facility] [address] [id number] [place] [address] Jun, [facility] [address] [id number] [place] [address]- [address] 15 Jun, 2012 [facility] [address] [id number] [place] [address]- 1666 Jun, [facility] [address] [id number] [place] [address] Jun, [facility] [address] [id number] [place] [address] 67[address] Jun, [facility] [address] [id number] [place] [address]- 8610 Jun, [facility] [id number] [address] May, [facility] [address] [facility] [id number] [address] 04 May, 2012 [facility] [address] [id number] [address] 26 Apr, 2012 [facility] [address] [id number] [address] Apr, [facility] [id number] [address] 18 Apr, 2012 [facility] [address] [facility] [id number], [place] [address] Apr, [facility] [place] [facility] [address] [id number] [place] [address] 12 Apr, 2012 [facility] [place] [facility] [address] [facility] [id number], [place] [address] 08 Apr, 2012 [facility] [place] [facility] [id number], [place] [address] 07 Apr, 2012 [facility] [address] [id number] [place] [address]- 6661 07 Apr, 2012 [facility] [place] [facility] [address] [id number] [place] [address]- 7716 Apr, [facility] [address] [id number] [place] [address]- [address] Apr, [facility] [place] [facility] [address] [id number] [place] [address]- [address] Apr, [facility] [address] [id number] [place] [address] 2001 Mar, [facility] [address] [id number] [place] [address]- 99[address] Mar, [facility] [address] [id number] [place] [address]- 1630 Mar, [facility] [place] [facility] [address] [id number] [place] [address]- [address]057 Mar, [facility] [address] [id number] [place] [address]- [address]597 Mar, [facility] [address] [id number] [place] [address]- 5840 Mar, [facility] [address] [id number], [place] [address] Mar, [facility] [place] [facility] [address] [id number], [place] [address]- [address] Mar, [facility] [place] [facility] [address] [id number] [place] [address] Mar, [facility] [place] [facility] [address] [id number], [place] [address] Mar, [facility] [place] [facility] [address] [id number] [place] [address]- 120[address] Mar, [facility] [place] [facility] [address] [id number] [place] [address]- 9503 Mar, [facility] [address] [id number] [place] [address]- 2996 Mar, [facility] [place] [facility] [address] [id number] [place] [address]- 2216 Feb, [facility] [address] [id number] [place] [address]- [address]286 Feb, [facility] [facility] [address] [id number] [place] [address]46 18 Feb, 2012 [facility] [address] [id number] [place] [address] 18 Feb, 2012 [facility] [place] [facility] [address] [id number] [place] [address] 70[address] Feb, [facility] [address] [id number] [place] [address] 11 Feb, 2012 [facility] [place] [facility] [address] [id number] [place] [address] 2548 10 Feb, 2012 [facility] [address] [id number] [place] [address] 9966 10 Feb, 2012 [facility] [address] [id number] [place] [address] 2544 Feb, [facility] [address] [id number] [place] [address] 2546 10 Feb, 2012 [facility] [address] [id number] [place] [address] 2546 06 Feb, 2012 [facility] [address] [id number] [place] [address]- 9366 05 Feb, 2012 [facility] [place] [address] [id number] [place] [address]- 2546 05 Feb, 2012 [facility] [address] [id number] [place] [address]- 1560 Feb, [facility] [place] [address] [id number] [place] [address]- 7231 Feb, [facility] [address] [id number] [place] [address]- 7861 Jan, [facility] [address] [id number] [place] [address]- 49[address] Jan, [facility] [address] [id number] [place] [address], [place] [address]- [address] Jan, [facility] [address] [id number] [place] [address]- 74[address] Jan, [facility] [address] [id number] [place] [address]- 5373 Dec, [facility] [address] [id number] [place] [address]- 9440 Dec, [facility] [address] [id number] [place] [address]- 5320 Dec, [facility] [address] [id number] [place] [address]- 0871 Dec, [facility] [address] [id number] [place] [address]- 1812 Dec, [facility] [address] [id number] [place] [address]- 7479 Dec, [facility] [address] [id number], [place] [address] Dec, [facility] [address] [id number] [place] [address]- 9898 Dec, [facility] [address] [id number] [place] [address]- 0324 Dec, [facility] [address] [id number], [place] [address] 9[address] Dec, [facility] [address] [id number], [place] [address] 84[address] 03 Dec, 2011 [facility] [address] [id number] [place] [address] 2546 25 Sep, 2011 [facility] [address] [id number] [place] [address] 2546 24 Sep, 2011 [facility] [address] [id number] [place] [address] 2546 20 Sep, 2011 [facility] [address] [id number] [place] [address] 2546 19 Sep, 2011 [facility] [address] [id number] [place] [address]- 9016 17 Sep, 2011 [facility] [address] [id number] [place] [address]- 8559 16 Sep, 2011 [facility] [address] [id number] [place] [address]- 9574 14 Sep, 2011 [facility] [address] [id number] [place] [address]- 6063 13 Sep, 2011 [facility] [address] [id number] [place] [address]- [address] 12 Sep, 2011 [facility] [address] [id number] [place] [address]- 3988 07 Sep, 2011 [facility] [address] [id number] [place] [address] 2540 06 Sep, 2011 [facility] [address] [id number] [place] [address] 2541 06 Sep, 2011 [facility] [address] [id number] [place] [address] 2542 05 Sep, 2011 [facility] [address] [id number] [place] [address]- 2540 29 Oct, 2011 [facility] [address] [id number] [place] [address]- 2541 Oct, [facility] [address] [id number] [place] [address]- 9206 Oct, [facility] [address] [id number] [place] [address]- 7691 Oct, [facility] [address] [id number] [place] [address]- 7426 Oct, [facility] [address] [id number] [place] [address]- 7866 Oct, [facility] [address] [id number] [place] [address]- 0907 Oct, [facility] [address] [id number] [place] [address]- 8667 Oct, [facility] [address] [id number] [place] [address]- 3888 Oct, [facility] [address] [id number] [place] [address]- 0469 Oct, [facility] [address] [id number] [place] [address]- 0164 Oct, [facility] [address] [id number] [place] [address]- 2201 Sep, [facility] [address] [id number] [place] [address]- 2385 Sep, [facility] [address] [id number] [place] [address]- 2544 Sep, [facility] [address] [id number] [place] [address]- 2549 Sep, [facility] [address] [id number] [place] [address]- 8257 Sep, [facility] [address] [id number] [place] [address]- 4410 Sep, [facility] [address] [id number] [place] [address]- 9786 Aug, [facility] [address] [id number] [place] [address]- 2440 July, [facility] [address] [id number] [place] [address]- 1080 July, [facility] [address] [id number] [place] [address]- 5512 Jun, [facility] [address] [id number] [place] [address]- 8166 Jun, [facility] [address] [id number] [place] [address]- 2640 Jun, [facility] [address] [id number] [place] [address]- 8293 Jun, [facility] [address] [id number] [place] [address]- 7716 Jun, [facility] [address] [id number] [place] [address]- 2729 Jun, [facility] [address] [id number] [place] [address]- 5400 Jun, [facility] [address] [id number] [place] [address]- 6530 Jun, [facility] [address] [id number] [place] [address]- 7815 Jun, [facility] [address] [id number], [place] [address]- 8268 Jun, [facility] [address] [id number] [place] [address]- 0130 Jun, [facility] [address] [id number] [place] [address]- 0480 May, [facility] [address] [id number] [place] [address]10 May, [facility] [address] [id number], [place] [address]- 2039 May, [facility] [address] [id number] [place] [address]- 9436 May, [facility] [address] [id number] [place] [address]- 7306 Apr, [facility] [address] [id number] [place] [address]- 4786 Apr, [facility] [address] [id number] [place] [address]- 3520 Apr, [facility] [address] [id number] [place] [address]- 4916 Apr, [facility] [address] [id number] [place] [address]- 5746 Apr, [facility] [address] [id number] [place] [address]- 9546 Apr, [facility] [address] [id number] [place] [address]- 2234 Apr, [facility] [address] [id number] [place] [address]- 5942 Apr, [facility] [address] [id number] [address]- 4368 Mar, [facility] [address] [id number] [place] [address] 2542 Mar, [facility] [address] [id number] [place] [address] 2546 Mar, [facility] [address] [id number] [place] [address]- 5976 18 Mar, 2011 [facility] [address] [id number] [place] [address]- 6506 17 Mar, 2011 [facility] [address] [id number] [place] [address]- 6065 Mar, [facility] [address] [id number] [place] [address]- 1484 Mar, [facility] [address] [id number] [place] [address]- 7999 Mar, [facility] [address] [id number] [place] [address]- 6237 Mar, [facility] [address] [id number] [place] [address]- 0257 Mar, [facility] [address] [id number] [place] [address]- 7285 Mar, [facility] [address] [id number] [place] [address]- 5264 Mar, [facility] [address] [id number] [place] [address]- 4567 Mar, [facility] [address] [id number] [place] [address]- 8375 Mar, [facility] [address] [id number] [place] [address]- 7592 Mar, [facility] [address] [id number], [place] [address]- 9212 Mar, [facility] [address] [id number], [place] [address]- 5310 Feb, [facility] [address] [id number], [place] [address]- 1411 Feb, [facility] [address] [id number] [place] [address]- 0228 Feb, [facility] [address] [id number] [place] [address]60 29 Jan, 2011 [facility] [address] [id number], [place] [address]- 1771 Jan, [facility] [address] [id number], [place] [address]- 5126 Jan, [facility] [place] [address], [place] [address]043 Dec, [facility] [place] [address], [place] [address]- 2376 Dec, [facility] [place] [address] [id number], [place] [address]- 4696 Nov, [facility] [place] [id number] [place] [address]- 5899 Oct, [facility] [place] [id number] [place] [address]78- 6747 Oct, [facility] [place] [id number] [place] [address] 9[address]- 4712 Oct, [facility] [place] [id number] [place] [address] 25328- 0355 Sep, [facility] [place] [address], [place] [address]- 4863 Apr, [facility] [place] [id number] [place] [address] 89[address]- 5610 Feb, [facility] [place] [address], [place] [address]- 6416 Jan, IMMUNIZATIONS No Known Immunizations SOCIAL HISTORY Never Assessed REASON FOR VISIT Med List updated per Hospital Discharge PLAN OF CARE VITAL SIGNS MEDICATIONS Medication Instructions Dosage Frequency Start Date End Date Duration Status Ventolin HFA 108 (90 Base) MCG/ACT Inhalation every 4 hours prn shortness of breath 2 puffs as needed Active Ambien CR 6.25 MG Orally Once a day 1 tablet at bedtime as needed 24h 12 Feb, 2017 15 days Active Multivitamin Adult - Orally Once a day 24h Active Loperamide HCl 2 MG Orally No more than 8 caps a day 2 capsules with first stool and then 1 with each 6 subsequent stools May, Not- Taking Neurontin 300 MG Orally Three times a day-repository 1 capsule Dec, Active Pantoprazole Sodium 40 mg Orally twice a day 1 tablet 12h Apr, 30 day(s) Active Vancomycin HCl 125 MG Orally every 6 hrs for 4 days 1 capsule Active Glimepiride 1 MG Orally Once a day on the days you are taking the prednsone 1 tablet with breakfast or the first main meal of the day Mar, 30 day(s) Active Spiriva HandiHaler 18 MCG Inhalation Once a day 1 capsule 24h Active Cymbalta 60 mg Orally Once a day 2 capsule 24h Feb, Active Ipratropium-Albuterol 0.5-2.5 (3) MG/3ML Inhalation Four times a day 3 ml as needed for Shortness of breath 6h Active Trulicity 0.75 MG/0.5ML Subcutaneous once weekly 0.5 ml Jun, 90 days Active PredniSONE 20 mg Orally po for 3 days then 2 tabs daily for 3 days then 1 tab daily for 3 days 60 mg tablet Active Zyrtec Allergy 10 MG Orally Once a day 1 tablet 24h Not-Taking Metoprolol Tartrate 25 MG Orally 2 times a day 1/2 tablet 12h Active Advair Diskus 250 mcg-50 mcg Inhalation Twice a day 1 puff 12h Dec, Active Metamucil 43 % Orally Once a day 3.4 GM 24h May, Active Zofran ODT 8 MG Orally every 6 hours as needed for Nausea and vomiting as directed May, Not-Taking Topamax 100 mg Orally Twice a day 1 tablet 12h 30 Active Abilify 15 mg Orally Once a day 1 tablet 24h Jun, 90 days Active Carafate 1 GM Orally 4 times a day 1 tablet at bedtime on an empty stomach before meals 6h Apr, May, 30 day(s) Active Melatonin 5 MG Orally Once a day 1 capsule at bedtime as needed with food 24h Feb, 30 day(s) Active Oxygen 2Lt by inhalation route 24 hours Active RESULTS No Results PROCEDURES No Known [...] 2/2 Benzos OD, pneumonia MRSA, [facility], Hypokalemia-- [facility] 12/20/2015 Hospitalization History COPD exacerbation, Asthma-[facility] 09/21/16 Hospitalization History COPD-[facility] 12/30/2016 Hospitalization History [facility]-last around 2006 or so. Hospitalization History for COPD x2 Mar 2017 Hospitalization History Upper GI bleed at apr 2017 Hospitalization History [facility] COPD Exacerbation, diarrhea 05/23/2017 Hospitalization History COPD exacerbation-[facility] 06/13/17 Hospitalization History [facility] 09/09/2017
--- OUTSIDE RECORDS SUMMARY | 2017-11-19 12:28 | XMS REPORT ---
Author Author JAISON NORWOOD [facility] Address [address] [place] [address] Care Team Providers Care Registered Health Nurse Name Role Phone CUCOBRYCE APONTEHANY Unavailable PROBLEMS Type Condition ICD9-CM Code FLG24-MV Code Onset Dates Condition Status SNOMED Code Problem Generalized anxiety disorder F41.1 Active 23586376 Problem Migraine without aura and without status migrainosus, not intractable G43.009 Active 958190099 Problem Other emphysema J43.8 Active 62309494 Problem Anxiety disorder, unspecified F41.9 Active 918434646 Problem Chronic obstructive pulmonary disease with acute exacerbation J44.1 Active 372953862 Problem Methamphetamine use disorder, moderate, 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 Active 59477879 Problem Chronic bronchitis, unspecified chronic bronchitis type J42 Active 00841966 Problem Intractable cyclical vomiting with nausea G43.A1 Active 10121947 Problem Diabetes E11.9 Active 916048984 Problem 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 Active Problem Tobacco abuse Z72.0 Active 57991809 Problem Examination of eyes and vision V72.0 Active 658909245 Problem Memory loss R41.3 Active 05446987 Problem Chronic constipation K59.09 Active 309289020 Problem TMJ (sprain of temporomandibular joint) S03.4XXA Active 99793999 Problem Bipolar disorder, unspecified F31.9 Active 90454752 Problem Migraine G43.909 Active 61124439 Problem Bipolar disorder with depression F31.30 Active 97730246 ALLERGIES No Information ENCOUNTERS Encounter Location Date Diagnosis [facility] [address] [address] Sep, [facility] [id number] [address] Sep, Acute congestive heart failure, unspecified heart failure type I50.9 and Anxiety disorder, unspecified F41.9 [facility] [id number] [address] Sep, Heart failure, unspecified HF chronicity, unspecified heart failure type I50.9 [facility] [address] [facility] [id number] [place] [address] Sep, [facility] [address] [address] Aug, Chronic obstructive pulmonary disease with acute exacerbation J44.1 [facility] [address] [facility] [id number] [address] Aug, [facility] [address] [address] 48[address] Aug, [facility] [address] [address] July, [facility] [address] [address] July, [facility] [address] [address] July, Diabetes E11.9 and Chronic obstructive pulmonary disease with acute exacerbation J44.1 [facility] [address] [address] Jun, Chronic obstructive pulmonary disease with acute exacerbation J44.1 ; Diabetes E11.9 and Tobacco abuse Z72.0 [facility] [address] [address] Jun, [facility] [address] [address] 9[address] Jun, [facility] [address] [address] 0[address] May, [facility] [address] [address] May, [facility] [id number] [place] [address] 63912 -1647 17 May, 2017 [facility] [id number] [place] [address] 99725- 3564 16 May, 2017 [facility] [id number] [place] [address] 22214- 9768 15 May, 2017 [facility] [id number] [place] [address] 77944- 5598 14 May, 2017 Diarrhea, unspecified type R19.7 and Intractable cyclical vomiting with nausea G43.A1 [facility] [id number] [place] [address] 70214- 4543 12 May, 2017 [facility] [id number] [place] [address] 58024- 5566 05 May, 2017 [facility] [id number] [place] [address] 64175- 2810 28 Apr, 2017 COPD exacerbation J44.1 ; Esophageal candidiasis B37.81 ; Other acute gastritis with hemorrhage K29.01 and Acute posthemorrhagic anemia D62 [facility] [id number] [place] [address] 98287- 3455 Apr, Viral illness B34.9 and COPD exacerbation J44.1 [facility] [id number] [place] [address] 77606 -3088 Apr, Shortness of breath R06.02 and Pneumonia of both lower lobes due to infectious organism J18.9 [facility] [id number] [place] [address] 25003 -4205 Mar, COPD with acute exacerbation J44.1 [facility] [id number] [place] [address] 66187- 6529 Mar, Chronic obstructive pulmonary disease with acute exacerbation J44.1 and Diabetes E11.9 [facility] [id number] [place] [address] 44715- 8028 Mar, [facility] [id number] [place] [address] 95904- 6425 Mar, [facility] [id number] [place] [address] 15031 -3757 Mar, COPD exacerbation J44.1 [facility] [id number] [place] [address] 29706- 5908 09 Mar, 2017 [place] [address] [address]- [address] Mar, Migraine G43.909 ; Hypokalemia E87.6 and Type 2 diabetes mellitus without complications E11.9 [place] [address] [address]145- 8959 Feb, [place] [id number] [place] [address] 85095- 1039 Feb, [place] [facility] [id number] [place] [address] 87468- 9807 Feb, Methamphetamine use disorder, moderate, 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 ; Major depressive disorder, recurrent, moderate F33.1 ; Anxiety disorder, unspecified F41.9 and Tobacco abuse Z72.0 [place] [id number] [place] [address] 20958- 7727 30 Jan, 2017 Major depressive disorder, recurrent, moderate F33.1 [place] [facility] [id number] [place] [address] 24439- 4057 16 Jan, 2017 [facility] [id number] [place] [address] 14833- 8926 14 Jan, 2017 [place] [id number] [place] [address] 29138- 9908 13 Jan, 2017 Major depressive disorder, recurrent, moderate F33.1 [place] [id number] [place] [address] 47619- 1064 13 Jan, 2017 Major depressive disorder, recurrent, moderate F33.1 ; Anxiety disorder, unspecified F41.9 ; Methamphetamine use disorder, moderate, 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 and Tobacco abuse Z72.0 [place] [id number] [place] [address] 04202- 6044 Jan, [place] [id number] [place] [address] 35853- 0730 Jan, Chronic obstructive pulmonary disease with acute exacerbation J44.1 and Diabetes E11.9 [place] [address] [address]- 4781 Jan, [place] [address] 40276- 9333 Jan, [place] [address] 89766- 4027 Dec, Acute respiratory failure with hypoxia J96.01 ; Chronic bronchitis, unspecified chronic bronchitis type J42 and Tobacco use Z72.0 [place] [address] 558[address]- [address] Dec, [facility] [id number] [place] [address] [id number] Nov, Dental caries K02.9 and Dental examination Z01.20 [place] [id number] [place] [address] 42477- 4914 Nov, Major depressive disorder, recurrent, moderate F33.1 ; Anxiety disorder, unspecified F41.9 and Other stimulant dependence with unspecified stimulant-induced disorder F15.29 [facility] [id number] [place] [address] [id number] Oct, Dental examination Z01.20 [place] [id number] [place] [address] 26266- 2161 Oct, [place] [id number] [place] [address] 81643- 7836 Oct, Diabetes E11.9 and Thrush B37.0 [place] [address] 24226- 1064 Oct, [facility] [address] [address]- 3880 Oct, [facility] [id number] [place] [address] 99137- 6977 Oct, [facility] [address] [address]- 5991 Sep, Major depressive disorder, recurrent, moderate F33.1 ; Anxiety disorder, unspecified F41.9 and Bipolar disorder, unspecified F31.9 [facility] [id number] [place] [address] 23220- 6061 Sep, Acute exacerbation of chronic obstructive pulmonary disease (COPD) J44.1 and Migraine G43.909 [facility] [id number] [place] [address] 99384- 7836 Sep, [facility] [id number] [place] [address] [id number] Sep, [facility] [id number] [place] [address] 84348- 4678 Sep, Acute exacerbation of chronic obstructive pulmonary disease (COPD) J44.1 [facility] [address] [address] Sep, Acute exacerbation of chronic obstructive pulmonary disease (COPD) J44.1 [facility] [id number] [place] [address] 01469- 0903 Aug, [facility] [id number] [place] [address] 06089- 5325 Aug, Major depressive disorder, recurrent, moderate F33.1 ; Anxiety disorder, unspecified F41.9 and Other 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 [facility] [address] [address]- 5275 Aug, Wheezing R06.2 ; Non morbid obesity due to excess calories E66.09 ; Migraine without aura and without status migrainosus, not intractable G43.009 and Tobacco abuse Z72.0 [facility] [id number] [place] [address] [id number] 14 Aug, 2016 Encounter for dental examination Z01.20 [facility] [id number] [place] [address] 40860- 0805 02 Aug, 2016 Major depressive disorder, recurrent, moderate F33.1 ; Anxiety disorder, unspecified F41.9 and 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 [facility] [id number] [place] [address] 91630- 9934 July, [facility] [address] 85377- 9404 July, [facility] [address] 75865- 6335 July, [facility] [address] 11288- 9255 July, Diabetes E11.9 [facility] [id number] [place] [address] 86356- 6554 Jun, Major depressive disorder, recurrent, moderate F33.1 [facility] [id number] [place] [address] 55230- 2339 Jun, Major depressive disorder, recurrent, moderate F33.1 ; 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 ; Generalized anxiety disorder F41.1 and Bipolar disorder, unspecified F31.9 [facility] [id number] [place] [address] 44789- 8424 Jun, Diabetes E11.9 ; Migraine G43.909 ; Thrush B37.0 and Wheezing R06.2 [facility] [id number] [place] [address] [id number] 24 Jun, 2016 Dental examination Z01.20 [facility] [id number] [place] [address] 67622- 7450 21 Jun, 2016 [facility] [id number] [place] [address] 66467- 0966 Jun, Major depressive disorder, recurrent, moderate F33.1 ; Anxiety disorder, unspecified F41.9 and 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 [place] [id number] [place] [address] 62521- 1938 Jun, [place] [id number] [place] [address] 484751- 1133 Jun, Wheezing R06.2 [facility] [id number] [place] [address] [id number] Jun, Dental caries K02.9 [place] [id number] [place] [address] 219993- 6935 Jun, Major depressive disorder, recurrent, moderate F33.1 ; Anxiety disorder, unspecified F41.9 and 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 [place] [id number] [place] [address] 36709- 3849 Jun, RLQ abdominal pain R10.31 ; Diabetes E11.9 ; Obesity, unspecified obesity severity, unspecified obesity type E66.9 ; Wheezing R06.2 and Abnormal urinalysis R82.90 [place] [id number] [place] [address] 66481- 2166 May, [place] [id number] [place] [address] 33532- 3786 May, Well woman exam Z01.419 ; Breast cancer screening Z12.39 ; Cervical cancer screening Z12.4 ; Urinary frequency R35.0 ; Edema, unspecified type R60.9 and Chronic constipation K59.09 [place] [id number] [place] [address]36 May, Major depressive disorder, recurrent, moderate F33.1 ; Anxiety disorder, unspecified F41.9 and 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.29 [facility] [address] [place] [id number] 07 May, 2016 Dental examination Z01.20 [place] [id number] [place] [address] 52744- 3059 May, [facility] [id number] [place] [address] 56659- 1556 May, [place] [id number] [place] [address] 17825- 2849 May, Chronic constipation K59.09 [place] [id number] [place] [address] 61735- 4419 Apr, [place] [id number] [place] [address] 81697- 4959 Apr, Major depressive disorder, recurrent, moderate F33.1 ; Anxiety disorder, unspecified F41.9 and 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 [place] [id number] [place] [address] 94217- 0250 Apr, [place] [id number] [place] [address] 04719- 3268 Mar, Major depressive disorder, recurrent, moderate F33.1 [place] [id number] [place] [address] 31808- 2915 Mar, Major depressive disorder, recurrent, moderate F33.1 ; Generalized anxiety disorder F41.1 and Bipolar I disorder, most recent episode depressed with anxious distress F31.30 [place] [address] [place] [address] 56408- 2934 Mar, Diabetes E11.9 ; Non morbid obesity due to excess calories E66.09 ; Breast cancer screening Z12.39 and Encounter for immunization Z23 [place] [id number] [place] [address] 12215- 8349 Mar, Major depressive disorder, recurrent, moderate F33.1 ; Anxiety disorder, unspecified F41.9 and 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 [facility] [id number] [place] [address] 23237- 2679 Mar, [facility] [id number] [place] [address] 97900- 7254 Feb, Major depressive disorder, recurrent, moderate F33.1 ; Anxiety disorder, unspecified F41.9 and 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 [facility] [id number] [place] [address] 56573- 3500 Feb, [facility] [id number] [place] [address] 85483- 4869 Feb, [place] [id number] [place] [address] 67260- 4494 Jan, Major depressive disorder, recurrent, moderate F33.1 ; Generalized anxiety disorder F41.1 and Bipolar disorder, current episode depressed, severe, without psychotic features F31.4 [place] [id number] [place] [address] 73162- 3387 Jan, Major depressive disorder, recurrent, moderate F33.1 ; Anxiety disorder, unspecified F41.9 and 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 [facility] [id number] [place] [address] 43045- 1639 16 Jan, 2016 Bronchitis J40 [place] [id number] [place] [address] 26014- 3806 15 Jan, 2016 [facility] [id number] [place] [address] 42395- 0474 Jan, [facility] [id number] [place] [address] 77246- 7422 Jan, Elbow injury, right, initial encounter S59.901A ; Multiple contusions T14.8 and Cervical strain, acute, initial encounter S16.1XXA [facility] [id number] [place] [address] 20669- 1281 Dec, Major depressive disorder, recurrent, moderate F33.1 ; Generalized anxiety disorder F41.1 and Bipolar disorder with depression F31.30 [facility] [address] [address]- 0941 Dec, [facility] [address] [facility] [id number] [address]- 0397 Dec, [facility] [id number] [place] [address] 35687- 4766 Dec, [facility] [address] [facility] [id number] [address]- 3001 Dec, [place] [id number] [place] [address] 51202- 9596 Dec, Yeast infection B37.9 [place] [address] [address]- 2931 Dec, Pneumonia of both lungs due to methicillin resistant Staphylococcus aureus (MRSA), unspecified part of lung J15.212 and Benzodiazepine overdose, accidental or unintentional, subsequent encounter T42.4X1D [facility] [address] [address]- 4925 Dec, [facility] [address] [address]- 3750 Dec, [facility] [address] [address]- 0452 Dec, Knee pain, left M25.562 and Edema, unspecified type R60.9 [facility] [id number] [address]- 9920 Dec, [facility] [id number] [place] [address] 26527- 1316 Dec, Anxiety disorder, unspecified F41.9 and Bipolar disorder, unspecified F31.9 [facility] [id number] [address]- 8913 Nov, Major depressive disorder, recurrent, moderate F33.1 ; Anxiety disorder, unspecified F41.9 and 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 [place] [id number] [place] [address] 93186- 7275 Nov, [place] [id number] [place] [address] 40579- 4583 Nov, Migraine without aura and without status migrainosus, not intractable G43.009 [place] [id number] [place] [address] 55521- 5730 Nov, Migraine G43.909 [place] [id number] [place] [address] 81209- 4889 Nov, [place] [id number] [place] [address] 68449- 4134 Nov, Major depressive disorder, recurrent, moderate F33.1 ; Anxiety disorder, unspecified F41.9 and 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 [place] [id number] [place] [address] 76941- 3702 Oct, Chronic constipation K59.09 and Obesity, unspecified obesity severity, unspecified obesity type E66.9 [place] [id number] [place] [address] 27731- 5067 Oct, Obesity, unspecified obesity severity, unspecified obesity type E66.9 ; Chronic constipation K59.09 and Anxiety disorder, unspecified F41.9 [place] [id number] [place] [address] 12669- 2495 Oct, [place] [id number] [place] [address] 98353- 3126 Sep, Diabetes E11.9 ; Edema, unspecified type R60.9 ; Varicose vein of leg I83.90 and Obesity, unspecified obesity severity, unspecified obesity type E66.9 [place] [id number] [place] [address] 05067- 2437 Sep, Edema, unspecified type R60.9 ; Diabetes E11.9 and Knee pain , left M25.562 [facility] [id number] [place] [address] 12925- 6356 Sep, [facility] [id number] [place] [address] 09844- 8016 Sep, [facility] [id number] [place] [address] 58959- 6675 Sep, Major depressive disorder, recurrent, moderate F33.1 ; Generalized anxiety disorder F41.1 and Bipolar disorder, unspecified F31.9 [facility] [id number] [place] [address] 21470- 4393 Aug, Chondromalacia of left knee M94.262 [facility] [id number] [place] [address] 73838- 0154 Aug, Major depressive disorder, recurrent, moderate F33.1 ; Anxiety disorder, unspecified F41.9 and 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 [facility] [id number] [place] [address] 17436- 8144 Aug, [facility] [id number] [place] [address] 55589- 7652 Aug, Osteoarthritis of left knee M17.9 [facility] [id number] [place] [address] 66386- 2159 Aug, [facility] [id number] [place] [address] 86164- 1332 July, Major depressive disorder, recurrent, moderate F33.1 ; Anxiety disorder, unspecified F41.9 and 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 [facility] [id number] [place] [address] 97461- 0382 July, [facility] [id number] [place] [address] 94684- 0622 July, Chronic constipation K59.09 [facility] [address] [address]- 5805 20 Jun, 2015 [facility] [id number] [place] [address] 73561- 3065 15 Jun, 2015 [facility] [id number] [place] [address] 30595- 1911 14 Jun, 2015 Osteoarthritis of left knee M17.9 [facility] [id number] [place] [address] [phone] 13 Jun, 2015 [facility] [id number] [place] [address] [phone] 13 Jun, 2015 Generalized anxiety disorder F41.1 ; Bipolar disorder, unspecified F31.9 and Major depressive disorder, recurrent, moderate F33.1 [facility] [id number] [place] [address] [id number]- [phone] Jun, Migraine G43.909 [facility] [id number] [place] [address] [phone] 07 Jun, 2015 Left knee pain M25.562 ; Chronic constipation K59.09 ; Dry mouth R68.2 ; Yeast vaginitis B37.3 and Memory loss R41.3 [facility] [id number] [phone] 05 Jun, 2015 [facility] [id number] [address] 30 May, 2015 [facility] [address] [address] 29 May, 2015 [facility] [id number] [place] [address] 42660- 2682 May, [facility] [address] [address] 99[address] May, [facility] [id number] [place] [address] 62492- 9781 17 May, 2015 Acute bronchitis with COPD J44.0 ; Knee pain, left M25.562 and Encounter for tobacco use cessation counseling Z71.6 [facility] [facility] [id number] [place] [address] 95586- 4099 May, [facility] [id number] [place] [address] 21735- 6285 Apr, Diabetes E11.9 ; TMJ (sprain of temporomandibular joint) S03.4XXA ; Tobacco abuse Z72.0 ; Migraine G43.909 and Anxiety F41.9 [address] [id number] [place] [address] 98360- 1336 Apr, Generalized anxiety disorder F41.1 and Bipolar disorder, unspecified F31.9 [place] [facility] [id number] [place] [address] 47806- 4045 Apr, Major depressive disorder, recurrent, moderate F33.1 ; Anxiety disorder, unspecified F41.9 and 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 [place] [id number] [place] [address] 07518- 7630 Apr, [facility] [id number] [place] [address] 28852- 9370 Mar, [facility] [id number] [place] [address] 09424- 6022 Feb, [facility] [id number] [place] [address] 69308- 6051 14 Feb, 2015 Major depressive disorder, recurrent, moderate F33.1 ; Anxiety disorder, unspecified F41.9 and 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 [facility] [id number] [place] [address] 93861- 9804 Feb, [facility] [id number] [place] [address] 34894- 5579 Feb, Generalized anxiety disorder F41.1 and Bipolar disorder, unspecified F31.9 [facility] [id number] [place] [address] 61685- 2469 Jan, [facility] [id number] [place] [address] 60268- 2076 Jan, [facility] [id number] [place] [address] 43484- 3930 Jan, Bipolar disorder, unspecified F31.9 and Generalized anxiety disorder F41.1 [facility] [id number] [place] [address] 32256- 4453 Dec, [facility] [id number] [place] [address] 03651- 1074 Dec, Bipolar disorder, unspecified F31.9 and Generalized anxiety disorder F41.1 [place] [facility] [id number] [place] [address] 46859- 6592 Dec, Generalized anxiety disorder F41.1 and Major depressive disorder, recurrent, moderate F33.1 [facility] [id number] [place] [address] 67861- 8968 Oct, Headache 784.0 ; Cough 786.2 ; Vomiting and diarrhea 787.03 and Dysuria 788.1 [facility] [id number] [place] [address] 35573- 1274 Aug, [facility] [id number] [place] [address] 92591- 1331 Aug, Headache 784.0 and Shortness of breath 786.05 [facility] [id number] [place] [address] 86840- 4049 Aug, [facility] [id number] [place] [address] 71899- 4313 Aug, Migraine 346.90 [facility] [id number] [place] [address] 43532- 6653 Jun, [facility] [id number] [place] [id number] 8751 13 Jun, 2014 [facility] [place] [facility] [address] [id number] [place] [address]- 2342 May, [facility] [place] [facility] [address] [id number] [place] [address]- 1739 May, [facility] [place] [facility] [address] [facility] [id number] [place] [address]- 5972 May, [facility] [place] [facility] [address] [id number] [place] [address]- 4623 May, [facility] [place] [facility] [address] [id number] [place] [address]- 5304 May, [facility] [place] [facility] [address] [id number] [place] [address]- 8332 May, [facility] [place] [facility] [address] [facility] [id number] [place] [address]- 0757 Apr, [facility] [place] [facility] [address] [facility] [id number] [place] [address]- 2191 Apr, [facility] [place] [facility] [address] [facility] [id number] [place] [address]- 9729 Apr, [facility] [place] [facility] [address] [facility] [id number] [place] [address]- 5398 Apr, [facility] [place] [facility] [address] [facility] [id number] [place] [address]- 0333 Apr, [facility] [place] [facility] [address] [facility] [id number] [place] [address]- 4874 Mar, [facility] [place] [facility] [address] [id number] [place] [address]- 9748 Mar, [facility] [place] [facility] [address] [facility] [id number] [place] [address]- 1446 Mar, [facility] [place] [facility] [address] [facility] [id number] 3918 Mar, [facility] [place] [facility] [address] [id number] [place] [address]- 8452 Feb, [facility] [place] [facility] [address] [id number] [place] [address]- 1735 Feb, [facility] [place] [facility] [address] [id number] [place] [address]- 4379 Feb, [facility] [place] [facility] [address] [id number] [place] [address]- 3120 Feb, [facility] [place] [facility] [address] [id number] [place] [address]- 8820 Feb, [facility] [place] [facility] [address] [id number] [place] [address]- 1662 Feb, [facility] [place] [facility] [address] [id number] [place] [address]- 1069 Feb, [facility] [place] [facility] [address] [id number] [place] [address]- 6236 Feb, [facility] [place] [facility] [address] [id number] [place] [address]- 1864 Feb, [facility] [place] [facility] [address] [id number] [place] [address]- 7119 Feb, [facility] [place] [facility] [address] [id number] [place] [address]- 9606 Feb, [facility] [place] [facility] [address] [id number] [place] [address]- 2483 Feb, [facility] [place] [facility] [address] [id number] [place] [address]- 0735 Jan, [facility] [place] [facility] [address] [id number] [place] [address]- 7214 Jan, [facility] [place] [facility] [address] [id number] [place] [address]- 3599 10 Dec, 2013 [facility] [place] [facility] [address] [id number] [place] [address]- 1022 Dec, [facility] [place] [facility] [address] [id number] [place] [address]- 0910 Dec, [facility] [place] [facility] [address] [id number] [place] [address]- 4778 Dec, [facility] [place] [facility] [address] [id number] [place] [address]- 4227 Dec, [facility] [place] [facility] [address] [id number] [place] [address]- 7422 Dec, [facility] [place] [facility] [address] [id number] [place] [address]- 9575 Sep, [facility] [place] [facility] [address] [id number] [place] [address]- 6247 Sep, [facility] [place] [facility] [address] [id number] [place] [address]- 6837 Sep, [facility] [place] [facility] [address] [id number] [place] [address]- 6723 Sep, [facility] [place] [facility] [address] [id number] [place] [address]- 9174 Sep, [facility] [place] [facility] [address] [id number] [place] [address]- 6488 Sep, [facility] [place] [facility] [address] [id number] [place] [address]- 8162 Sep, [facility] [place] [facility] [address] [id number] [place] [address]- 4075 Sep, [facility] [place] [facility] [address] [id number] [place] [address]- 7221 Sep, [facility] [place] [facility] [address] [id number] [place] [address]- 0841 Sep, [facility] [place] [facility] [address] [id number] [place] [address]- 0797 Aug, [facility] [place] [facility] [address] [id number] [place] [address]- 3591 Aug, [facility] [place] [facility] [address] [id number] [place] [address]- 7333 Aug, [facility] [place] [facility] [address] [id number] [place] [address]- 7457 Aug, [facility] [place] [facility] [address] [id number] [place] [address]- 5058 Aug, [facility] [place] [facility] [address] [id number] [place] [address]- 0359 Aug, [facility] [place] [facility] [address] [id number] [place] [address]- 4359 Aug, [facility] [place] [facility] [address] [id number] [place] [address]- 5117 Aug, [facility] [place] [facility] [address] [id number] [place] [address]- 8902 Aug, [facility] [place] [facility] [address] [id number] [place] [address]- 4830 Aug, [facility] [place] [facility] [address] [id number] [place] [address]- 8899 Aug, [facility] [place] [facility] [address] [id number] [place] [address]- 4699 Aug, [facility] [place] [facility] [address] [id number] [place] [address]- 7984 Aug, [facility] [place] [facility] [address] [id number] [place] [address]- 7460 July, [facility] [place] [facility] [address] [id number] [place] [address]- 4162 July, [facility] [place] [facility] [address] [id number] [place] [address]- 3040 July, [facility] [place] [facility] [address] [id number] [place] [address]- 6000 July, [facility] [place] [facility] [address] [id number] [place] [address]- 3311 July, [facility] [place] [facility] [address] [id number] [place] [address]- 1715 July, [facility] [place] [facility] [address] [id number] [place] 1749 July, [facility] [place] [facility] [address] [id number] [place] [address]- 3916 Jun, [facility] [place] [facility] [address] [id number] [place] [address]- 9860 Jun, [facility] [place] [facility] [address] [id number] [place] [address]- 7583 Jun, [facility] [place] [facility] [address] [id number] [place] [address]- 5932 Jun, [facility] [place] [facility] [address] [id number] [place] [address]- 3639 Jun, [facility] [place] [facility] [address] [id number] [place] [address]- 6835 Jun, [facility] [place] [facility] [address] [id number] [place] [address]- 9720 Jun, [facility] [place] [facility] [address] [id number] [place] [address]- 9087 17 May, 2013 [facility] [place] [facility] [address] [id number] [place] [address]- 5952 17 May, 2013 [facility] [place] [facility] [address] [id number] [place] [address]- 7476 14 May, 2013 [facility] [place] [facility] [address] [id number] [place] [address]- 3504 14 May, 2013 [facility] [place] [facility] [address] [id number] [place] 8624 13 May, 2013 [facility] [place] [facility] [address] [id number] [address]- 6838 13 May, 2013 [facility] [place] [facility] [address] [id number] [place] [address]- 0679 10 May, 2013 [facility] [place] [facility] [address] [id number] [place] [address]- 9648 10 May, 2013 [facility] [place] [facility] [address] [id number] [place] [address]- 1167 May, [facility] [place] [facility] [address] [id number] [place] [address]- 7742 Apr, [facility] [place] [facility] [address] [id number] [place] [address]- 6947 Apr, [facility] [place] [facility] [address] [id number] [place] [address]- 0747 18 Apr, 2013 [facility] [place] [facility] [address] [id number] [place] [address]- 0221 15 Apr, 2013 [facility] [place] [facility] [address] [id number] [place] [address]- 7732 15 Apr, 2013 [facility] [place] [facility] [address] [id number] [place] [address]- 1668 Apr, [facility] [place] [facility] [address] [facility] [id number] [place] [address]- 6542 05 Apr, 2013 [facility] [place] [facility] [address] [id number] [place] [address]- 9968 Apr, [facility] [place] [facility] [address] [id number] [place] [address]- 2676 Apr, [facility] [place] [facility] [address] [id number] [place] [address]- 0325 Apr, [facility] [place] [facility] [address] [id number] [place] [address]- 1212 Mar, [facility] [place] [facility] [address] [facility] [id number] [place] [address]- 7090 Mar, [facility] [place] [facility] [address] [id number] [place] [address]- 6270 Mar, [facility] [place] [facility] [address] [id number] [place] [address]- 5649 Mar, [facility] [place] [facility] [address] [id number] [place] [address]- 0220 Mar, [facility] [place] [facility] [address] [id number] [place] [address]- 4004 Mar, [facility] [place] [facility] [address] [id number] [place] [address]- 0667 Mar, [facility] [place] [facility] [address] [id number] [place] [address]- 4383 Mar, [facility] [place] [facility] [address] [id number] [place] [address]- 5074 Feb, [facility] [place] [facility] [address] [id number] [place] [address]- 8348 Feb, [facility] [place] [facility] [address] [id number] [place] [address]- 8878 Jan, [facility] [place] [facility] [address] [id number] [place] [address]- 4265 18 Jan, 2013 [facility] [place] [facility] [address] [id number] [address]- 2566 15 Jan, 2013 [facility] [place] [facility] [address] [id number] [address]- 4846 Jan, [facility] [place] [facility] [address] [id number] [place] [address]- 2062 Jan, [facility] [place] [facility] [address] [id number] [place] [address]- 2727 Jan, [facility] [place] [facility] [address] [id number] [place] [address]- 8233 05 Jan, 2013 [facility] [place] [facility] [address] [id number] [place] [address]- 1524 05 Jan, 2013 [facility] [place] [facility] [address] [id number] [place] [address]- 2706 13 Dec, 2012 [facility] [place] [facility] [address] [id number] [place] [address]- 5210 10 Dec, 2012 [facility] [place] [facility] [address] [id number] [place] [address]- 5886 10 Dec, 2012 [facility] [place] [facility] [address] [id number] [place] [address]- 1901 20 Nov, 2012 [facility] [place] [facility] [address] [id number] [place] [address]- 4682 13 Nov, 2012 [facility] [place] [facility] [address] [id number] [place] [address]- 1463 12 Nov, 2012 [facility] [place] [facility] [address] [id number] [place] [address]- 9279 09 Nov, 2012 [facility] [place] [facility] [address] [id number] [place] [address]- 0000 06 Nov, 2012 [facility] [place] [facility] [address] [id number] [place] [address]- 0690 Nov, [facility] [place] [facility] [address] [id number] [place] [address]- 5140 Oct, [facility] [place] [facility] [address] [id number] [place] [address]- 0144 Oct, [facility] [place] [facility] [address] [id number] [place] [address]- 254 Sep, [facility] [place] [facility] [address] [id number] [place] [address]- 5149 Sep, [facility] [place] [facility] [address] [id number] [place] [address]- 2252 Sep, [facility] [place] [facility] [address] [id number] [place] [address]- 4502 Sep, [facility] [place] [facility] [address] [id number] [place] [address]- 4734 Sep, [facility] [address] [id number] [place] [address]- 7880 Sep, [facility] [place] [facility] [address] [id number] [place] [address]- 0287 Sep, [facility] [place] [facility] [address] [id number] [place] [address]- 4713 Aug, [facility] [place] [facility] [address] [id number] [place] [address]- 8516 Aug, [facility] [place] [facility] [address] [id number] [place] [address]- 9762 Aug, [facility] [address] [id number] [place] [address]- 1644 Aug, [facility] [facility] [address] [id number] [place] [address]- 2293 Aug, [facility] [address] [id number] [place] [address]- 2041 Aug, [facility] [place] [facility] [address] [id number] [place] [address]- 4119 July, [facility] [place] [facility] [address] [id number] [place] [address]- 5745 July, [facility] [place] [facility] [address] [id number] [place] [address]- 1792 July, [facility] [place] [facility] [address] [id number] [place] [address]- 7706 July, [facility] [place] [facility] [address] [id number] [place] [address]- 0469 July, [facility] [place] [facility] [address] [id number] [place] [address]- 0298 July, [facility] [place] [facility] [address] [id number] [place] [address]- 4762 Jun, [facility] [address] [id number] [place] [address]- 2190 Jun, [facility] [address] [id number] [place] [address]- 4897 15 Jun, 2012 [facility] [address] [facility] [id number] [place] [address]- 7400 Jun, [facility] [place] [facility] [address] [facility] [id number] [place] [address]- 0872 Jun, [facility] [address] [id number] [place] [address]- 5246 Jun, [facility] [address] [facility] [id number] [place] [address]- 0338 Jun, [facility] [id number] [place] [address] May, [facility] [place] [facility] [address] [facility] [id number] [address] May, [facility] [address] [facility] [id number] [place] [address] Apr, [facility] [place] [facility] [address] [facility] [id number] [place] [address] Apr, [facility] [address] [facility] [id number] [place] [address] Apr, [facility] [place] [facility] [address] [facility] [id number] [place] [address] Apr, [facility] [place] [facility] [address] [facility] [id number] [place] [address] Apr, [facility] [place] [facility] [address] [facility] [id number] [place] [address] 08 Apr, 2012 [facility] [place] [facility] [address] [id number] [address] 07 Apr, 2012 [facility] [place] [facility] [address] [id number] [place] [address] 07 Apr, 2012 [facility] [address] [id number] [place] [address] Apr, [facility] [place] [facility] [address] [id number] [place] [address] Apr, [facility] [address] [id number] [place] [address] Apr, [facility] [address] [id number] [place] [address] Mar, [facility] [address] [id number] [place] [address] Mar, [facility] [address] [id number] [place] [address] Mar, [facility] [address] [id number] [place] [address] Mar, [facility] [address] [id number] [place] [address] Mar, [facility] [address] [id number] [place] [address] 12[address] Mar, [facility] [address] [id number] [place] [address] Mar, [facility] [address] [id number] [address] Mar, [facility] [place] [facility] [address] [id number] [place] [address] Mar, [facility] [place] [facility] [address] [id number] [place] [address] Mar, [facility] [place] [facility] [address] [id number] [place] [address] 6988 Mar, [facility] [place] [facility] [address] [id number] [place] [address] Mar, [facility] [address] [id number] [place] [address]36 Mar, [facility] [place] [facility] [address] [id number] [place] [address] Feb, [facility] [place] [facility] [address] [id number] [place] [address] 95[address] Feb, [facility] [place] [facility] [address] [id number] [place] [address]- 8896 Feb, [facility] [place] [facility] [address] [id number] [place] [address]- 74[address] Feb, [facility] [place] [facility] [address] [id number] [place] [address]- [address]30 Feb, [facility] [place] [facility] [address] [id number] [place] [address]- [address] Feb, [facility] [place] [facility] [address] [id number] [place] [address]- [address] Feb, [facility] [place] [facility] [address] [id number] [place] [address]663 Feb, [facility] [place] [facility] [address] [id number] [place] [address]- 7934 Feb, [facility] [place] [facility] [address] [id number] [place] [address] 5147 Feb, [facility] [place] [facility] [address] [id number] [place] [address]- [address] 06 Feb, 2012 [facility] [place] [facility] [address] [id number] [place] [address]- [address] 05 Feb, 2012 [facility] [place] [facility] [address] [id number] [place] [address]- [address]17 05 Feb, 2012 [facility] [place] [facility] [address] [id number] [place] [address]- 7631 Feb, [facility] [place] [facility] [address] [id number] [place] [address] 8931 Feb, [facility] [place] [facility] [address] [id number] [place] [address]- 98[address] Jan, [facility] [place] [facility] [address] [id number] [place] [address] Jan, [facility] [place] [facility] [address] [id number] [place] [address]- 40[address] Jan, [facility] [place] [facility] [address] [id number] [place] [address] 299[address] Jan, [facility] [place] [facility] [address] [id number] [place] [address]- 2986 Dec, [facility] [place] [facility] [address] [id number] [place] [address]- 9339 Dec, [facility] [place] [facility] [address] [id number] [place] [address]- [address] Dec, [facility] [place] [facility] [address] [id number] [place] [address]- [address]81 Dec, [facility] [place] [facility] [address] [id number] [place] [address]- [address]34 Dec, [facility] [place] [facility] [address] [id number] [place] [address]- 6207 Dec, [facility] [place] [facility] [address] [id number] [place] [address]- [address]234 Dec, [facility] [place] [facility] [address] [id number] [address] Dec, [facility] [place] [facility] [address] [id number] [place] [address]- 2406 Dec, [facility] [place] [facility] [address] [id number] [place] [address]- 4312 Dec, [facility] [place] [facility] [address] [id number] [place] [address]- 1671 Dec, [facility] [place] [facility] [address] [id number] [place] [address]- [address] 25 Sep, 2011 [facility] [place] [facility] [address] [id number] [place] [address]- [address] 24 Sep, 2011 [facility] [place] [facility] [address] [id number] [place] [address]- 6026 20 Sep, 2011 [facility] [place] [facility] [address] [id number] [place] [address] 2546 19 Sep, 2011 [facility] [place] [facility] [address] [id number] [place] [address] 17 Sep, 2011 [facility] [place] [facility] [address] [id number] [place] [address] 16 Sep, 2011 [facility] [place] [facility] [address] [id number] [place] [address] 14 Sep, 2011 [facility] [place] [facility] [address] [id number] [place] [address] 13 Sep, 2011 [facility] [place] [facility] [address] [id number] [place] [address] 1696 12 Sep, 2011 [facility] [place] [facility] [address] [id number] [place] [address] 07 Sep, 2011 [facility] [place] [facility] [address] [id number] [place] [address] 357[address] 06 Sep, 2011 [facility] [place] [facility] [address] [id number] [place] [address] 06 Sep, 2011 [facility] [place] [facility] [address] [id number] [place] [address] 1148 05 Sep, 2011 [facility] [place] [facility] [address] [id number] [place] [address] 4572 29 Oct, 2011 [facility] [place] [facility] [address] [id number] [place] [address] 4238 29 Oct, 2011 [facility] [place] [facility] [address] [id number] [place] [address] 9005 Oct, [facility] [place] [facility] [address] [id number] [place] [address] 0398 Oct, [facility] [place] [facility] [address] [id number] [place] [address] 3[address] Oct, [facility] [place] [facility] [address] [id number] [place] [address] 6876 Oct, [facility] [place] [facility] [address] [id number] [place] [address] 8844 Oct, [facility] [place] [facility] [address] [id number] [place] [address]- 23[address] Oct, [facility] [place] [facility] [address] [id number] [place] [address]- 0473 Oct, [facility] [place] [facility] [address] [id number] [place] [address] 6937 Oct, [facility] [place] [facility] [address] [id number] [place] [address] 4379 Oct, [facility] [place] [facility] [address] [id number] [place] [address] Sep, [facility] [place] [facility] [address] [id number] [place] [address] 8079 Sep, [facility] [place] [facility] [address] [id number] [place] [address] 8490 Sep, [facility] [place] [facility] [address] [id number] [place] [address] 3860 Sep, [facility] [place] [facility] [address] [id number] [place] [address] 8145 Sep, [facility] [place] [facility] [address] [id number] [place] [address]- 2955 Sep, [facility] [place] [facility] [address] [id number] [place] [address] 3539 Aug, [facility] [place] [facility] [address] [id number] [place] [address] 2766 July, [facility] [place] [facility] [address] [id number] [place] [address] 5566 July, [facility] [place] [facility] [address] [id number] [place] [address] 3416 Jun, [facility] [place] [facility] [address] [id number] [place] [address]- 7766 Jun, [facility] [place] [facility] [address] [id number] [place] [address]- 9378 Jun, [facility] [place] [facility] [address] [id number] [place] [address]- 9584 Jun, [facility] [place] [facility] [address] [id number] [place] [address]- 9074 Jun, [facility] [place] [facility] [address] [id number] [place] [address] 5325 Jun, [facility] [place] [facility] [address] [id number] [place] [address]- 4433 Jun, [facility] [place] [facility] [address] [id number] [place] [address] 7220 08 Jun, 2011 [facility] [place] [facility] [address] [id number] [place] [address] 7115 Jun, [facility] [place] [facility] [address] [id number] [place] [address] 5552 Jun, [facility] [place] [facility] [address] [id number] [place] [address] 5272 Jun, [facility] [place] [facility] [address] [id number] [place] [address]- 2142 19 May, 2011 [facility] [place] [facility] [address] [id number] [place] [address]- 0546 16 May, 2011 [facility] [place] [facility] [address] [id number] [place] [address]- 8091 May, [facility] [address] [id number] [place] [address] 8582 May, [facility] [place] [facility] [address] [id number] [place] [address]- 4216 Apr, [facility] [place] [facility] [address] [facility] [id number] [place] [address]- 2056 Apr, [facility] [place] [facility] [address] [id number] [place] [address]- 9349 Apr, [facility] [place] [facility] [address] [id number] [place] [address]- 0896 Apr, [facility] [place] [facility] [address] [id number] [place] [address]- 9621 Apr, [facility] [address] [id number] [place] [address] 6448 Apr, [facility] [place] [facility] [address] [facility] [id number] [place] [address]- 2371 Apr, [facility] [place] [facility] [address] [facility] [id number] [place] [address]- 8955 Apr, [facility] [place] [facility] [address] [facility] [id number] [place] [address]- 0546 Mar, [facility] [place] [facility] [address] [facility] [id number] [place] [address] 2511 Mar, [facility] [place] [facility] [address] [id number] [place] [address]- 7542 Mar, [facility] [place] [facility] [address] [id number] [place] [address]- 1738 18 Mar, 2011 [facility] [place] [facility] [address] [facility] [id number] [place] [address]- 1860 17 Mar, 2011 [facility] [place] [facility] [address] [facility] [id number] [place] [address]- 6312 13 Mar, 2011 [facility] [place] [facility] [address] [id number] [place] [address]- 5287 Mar, [facility] [place] [facility] [address] [id number] [place] [address]- 0255 Mar, [facility] [place] [facility] [address] [id number] [place] [address]- 7123 Mar, [facility] [place] [facility] [address] [id number] [place] [address]- 5052 Mar, [facility] [place] [facility] [address] [id number] [place] [address]- 9978 Mar, [facility] [place] [facility] [address] [id number] [place] [address]- 4632 Mar, [facility] [place] [facility] [address] [id number] [place] [address]- 6143 Mar, [facility] [place] [facility] [address] [id number] [place] [address]- 7068 Mar, [facility] [place] [facility] [address] [id number] [place] [address]- 7420 Mar, [facility] [place] [facility] [address] [id number] [place] [address]- 4165 Mar, [facility] [place] [facility] [address] [id number] [place] [address]- 7109 Feb, [facility] [place] [facility] [address] [id number] [place] [address]- 5714 Feb, [facility] [place] [facility] [address] [id number] [place] [address]- 5774 Feb, [facility] [place] [facility] [address] [id number] [place] [address]- 1756 29 Jan, 2011 [facility] [place] [facility] [address] [id number] [place] [address]- 4037 Jan, [facility] [place] [facility] [address] [id number] [place] [address]- 9889 Jan, [facility] [address] [facility] [id number] [address] Dec, [facility] [address] [facility] [id number] [place] [address]- 2546 Dec, [facility] [address] [id number] [address]46 Nov, [facility] [address] [facility] [id number] [place] [address]- 2546 Oct, [facility] [address] [facility] [id number] [place] [address]- 2546 Oct, [facility] [address] [id number] [address] 2546 Oct, [facility] [id number] [address] 2546 Sep, [facility] [address] [id number] [address] 2546 Apr, [facility] [address] [facility] [id number] [place] [address]- 6426 Feb, [facility] [address] [id number] [address] 2546 Jan, IMMUNIZATIONS No Known Immunizations SOCIAL HISTORY Never Assessed REASON FOR VISIT stool specimens PLAN OF CARE VITAL SIGNS MEDICATIONS Unknown [...] 2/2 Benzos OD, pneumonia MRSA, [facility], Hypokalemia-- [facility] 12/20/2015 Hospitalization History COPD exacerbation, Asthma-[facility] 09/21/16 Hospitalization History COPD-[facility] 12/30/2016 Hospitalization History [facility] for inpatient-last around 2006 or so. Hospitalization History [facility] for COPD x2 Mar 2017 Hospitalization History Upper GI bleed at apr 2017 Hospitalization History [facility]- COPD Exacerbation, diarrhea 05/23/2017 Hospitalization History COPD exacerbation-[facility] 06/13/17 Hospitalization History CH[facility] 09/09/2017
--- OUTSIDE RECORDS SUMMARY | 2017-11-19 12:29 | XMS REPORT ---
Author Author ALIZA CARTER [facility] Address [address] [place] [address] Care Team Providers Care Set Decorator Name Role Phone ALIZA CARTER Unavailable PROBLEMS Type Condition ICD9-CM Code QWP27-PE Code Onset Dates Condition Status SNOMED Code Problem Generalized anxiety disorder F41.1 Active 97596212 Problem Migraine without aura and without status migrainosus, not intractable G43.009 Active 731761713 Problem Other emphysema J43.8 Active 50775215 Problem Anxiety disorder, unspecified F41.9 Active 030530810 Problem Chronic obstructive pulmonary disease with acute exacerbation J44.1 Active 762705947 Problem Methamphetamine use disorder, moderate, 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 Active 96890609 Problem Chronic bronchitis, unspecified chronic bronchitis type J42 Active 53312915 Problem Intractable cyclical vomiting with nausea G43.A1 Active 58108988 Problem Diabetes E11.9 Active 889377255 Problem 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 [id number] [address] Sep, [facility] [address] [facility] [id number], [place] [address] Sep, Acute congestive heart failure, unspecified heart failure type I50.9 and Anxiety disorder, unspecified F41.9 [facility] [address], [place] [address] Sep, Heart failure, unspecified HF chronicity, unspecified heart failure type I50.9 [facility] [address], [place] [address] Sep, [facility] [address], [place] [address] 4884 Aug, Chronic obstructive pulmonary disease with acute exacerbation J44.1 [facility] [address], [place] [address] Aug, [facility] [address], [place] [address] 9606 Aug, [facility] [address], [place] [address] 2[address] July, [facility] [address], [place] [address] July, [facility] [address], [place] [address] 5570 July, Diabetes E11.9 and Chronic obstructive pulmonary disease with acute exacerbation J44.1 [facility] [address], [place] [address] Jun, Chronic obstructive pulmonary disease with acute exacerbation J44.1 ; Diabetes E11.9 and Tobacco abuse Z72.0 [facility] [address], [place] [address] 72[address] Jun, [facility] [address], [place] [address] 3117 Jun, [facility] [address], [place] [address] 1649 May, [facility] [address], [place] [address] 4847 May, [facility] [id number] [place] [address] 82223 -0921 17 May, 2017 [facility] [id number] [place] [address] 69256- 4484 16 May, 2017 [facility] [id number] [place] [address] 97383- 4011 15 May, 2017 [facility] [id number] [place] [address] 78523- 8567 14 May, 2017 Diarrhea, unspecified type R19.7 and Intractable cyclical vomiting with nausea G43.A1 [facility] [id number] [place] [address] 22632- 3881 12 May, 2017 [facility] [id number] [place] [address] 52062- 9418 05 May, 2017 [facility] [id number] [place] [address] 07590- 6118 28 Apr, 2017 COPD exacerbation J44.1 ; Esophageal candidiasis B37.81 ; Other acute gastritis with hemorrhage K29.01 and Acute posthemorrhagic anemia D62 [facility] [id number] [place] [address] 51504- 0489 Apr, Viral illness B34.9 and COPD exacerbation J44.1 [facility] [id number] [place] [address] 48072 -3116 Apr, Shortness of breath R06.02 and Pneumonia of both lower lobes due to infectious organism J18.9 [facility] [id number] [place] [address] 85464 -0524 Mar, COPD with acute exacerbation J44.1 [facility] [address] 63778- 0118 Mar, Chronic obstructive pulmonary disease with acute exacerbation J44.1 and Diabetes E11.9 [facility] [id number] [place] [address] 26588- 5641 Mar, [facility] [address], [place] [address]- 9865 Mar, [facility] [id number] [place] [address] 64414 -8359 Mar, COPD exacerbation J44.1 [facility] [id number] [place] [address] 45056- 6387 Mar, [facility] [id number] [place] [address] 58956- 0905 Mar, Migraine G43.909 ; Hypokalemia E87.6 and Type 2 diabetes mellitus without complications E11.9 [facility] [id number] [place] [address] 72047- 9172 Feb, [facility] [id number] [place] [address] 98068- 7057 Feb, [facility] [id number] [place] [address] 55401- 5552 Feb, Methamphetamine use disorder, moderate, 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 ; Major depressive disorder, recurrent, moderate F33.1 ; Anxiety disorder, unspecified F41.9 and Tobacco abuse Z72.0 [facility] [address] [place] [address] 15794- 6940 30 Jan, 2017 Major depressive disorder, recurrent, moderate F33.1 [facility] [address] [place] [address] 30789- 9684 16 Jan, 2017 [facility] [id number] [place] [address] 23607- 7021 Jan, [facility] [id number] [place] [address] 08166- 7157 Jan, Major depressive disorder, recurrent, moderate F33.1 [facility] [address] [place] [address] 45527- 6672 Jan, Major depressive disorder, recurrent, moderate F33.1 ; Anxiety disorder, unspecified F41.9 ; Methamphetamine use disorder, moderate, 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 and Tobacco abuse Z72.0 [facility] [id number] [place] [address] 02949- 5282 Jan, [facility] [address] 86740- 2082 Jan, Chronic obstructive pulmonary disease with acute exacerbation J44.1 and Diabetes E11.9 [facility] [address] 50977- 0507 Jan, [facility] [address] 06863- 5339 Jan, [facility] [address] 88160- 4904 Dec, Acute respiratory failure with hypoxia J96.01 ; Chronic bronchitis, unspecified chronic bronchitis type J42 and Tobacco use Z72.0 [facility] [address] 83343- 0780 Dec, [facility] [address] [id number] Nov, Dental caries K02.9 and Dental examination Z01.20 [facility] [address] 31705- 0720 Nov, Major depressive disorder, recurrent, moderate F33.1 ; Anxiety disorder, unspecified F41.9 and 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 [facility] [address] [id number] Oct, Dental examination Z01.20 [facility] [address] 30004- 3925 Oct, [facility] [address] 33295- 0097 Oct, Diabetes E11.9 and Thrush B37.0 [facility] [address] 41675- 2911 Oct, [facility] [address], [place] [address]- 7646 Oct, [facility] [address] [place] [address] 14066- 5075 Oct, [facility] [address] [place] [address] 65958- 4409 Sep, Major depressive disorder, recurrent, moderate F33.1 ; Anxiety disorder, unspecified F41.9 and Bipolar disorder, unspecified F31.9 [facility] [address] [place] [address] 53725- 2264 Sep, Acute exacerbation of chronic obstructive pulmonary disease (COPD) J44.1 and Migraine G43.909 [facility] [address] [place] [address] 56470- 8664 Sep, [facility] [id number] [place] [address] [id number] Sep, [facility] [id number] [place] [address] 91384- 5339 Sep, Acute exacerbation of chronic obstructive pulmonary disease (COPD) J44.1 [facility] [address], [place] [address] Sep, Acute exacerbation of chronic obstructive pulmonary disease (COPD) J44.1 [facility] [address], [place] [address]- 0986 Aug, [facility] [address] [place] [address] 78055- 4265 Aug, Major depressive disorder, recurrent, moderate F33.1 ; Anxiety disorder, unspecified F41.9 and 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 [facility] [address], [place] [address]- 2259 Aug, Wheezing R06.2 ; Non morbid obesity due to excess calories E66.09 ; Migraine without aura and without status migrainosus, not intractable G43.009 and Tobacco abuse Z72.0 [facility] [address] [place] [address] [id number] 14 Aug, 2016 Encounter for dental examination Z01.20 [facility] [id number] [place] [address] 47918- 0287 02 Aug, 2016 Major depressive disorder, recurrent, moderate F33.1 ; Anxiety disorder, unspecified F41.9 and 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 [facility] [id number] [place] [address] 15691- 2639 July, [facility] [address] 38791- 0227 July, [facility] [address] 16421- 6293 July, [facility] [address] 62453- 3515 July, Diabetes E11.9 [facility] [id number] [place] [address] 22959- 3898 Jun, Major depressive disorder, recurrent, moderate F33.1 [facility] [id number] [place] [address] 37755- 9507 Jun, Major depressive disorder, recurrent, moderate F33.1 ; 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 ; Generalized anxiety disorder F41.1 and Bipolar disorder, unspecified F31.9 [facility] [id number] [place] [address] 60152- 0058 Jun, Diabetes E11.9 ; Migraine G43.909 ; Thrush B37.0 and Wheezing R06.2 [facility] [address] [place] [address] [id number] 24 Jun, 2016 Dental examination Z01.20 [facility] [id number] [place] [address] 73884- 9365 21 Jun, 2016 [facility] [address] [place] [address] 30918- 0901 Jun, Major depressive disorder, recurrent, moderate F33.1 ; Anxiety disorder, unspecified F41.9 and 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 [facility] [address] [place] [address] 71000- 3670 Jun, [facility] [address] 575725- 4957 Jun, Wheezing R06.2 [facility] [id number] [place] [address] [id number] Jun, Dental caries K02.9 [facility] [id number] [place] [address] 251175- 7371 Jun, Major depressive disorder, recurrent, moderate F33.1 ; Anxiety disorder, unspecified F41.9 and 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 [facility] [address] [place] [address] 80011- 6764 Jun, RLQ abdominal pain R10.31 ; Diabetes E11.9 ; Obesity, unspecified obesity severity, unspecified obesity type E66.9 ; Wheezing R06.2 and Abnormal urinalysis R82.90 [facility] [address] [place] [address] 38786- 4634 May, [facility] [address] [place] [address] 52925- 7342 May, Well woman exam Z01.419 ; Breast cancer screening Z12.39 ; Cervical cancer screening Z12.4 ; Urinary frequency R35.0 ; Edema, unspecified type R60.9 and Chronic constipation K59.09 [facility] [id number] [place] [address] May, Major depressive disorder, recurrent, moderate F33.1 ; Anxiety disorder, unspecified F41.9 and 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 [facility] [id number] [id number] 07 May, 2016 Dental examination Z01.20 [facility] [address], [place] [address]- 1741 May, [facility] [address], [place] [address]- 7748 May, [facility] [address] [place] [address] 90416- 9332 May, Chronic constipation K59.09 [facility] [id number] [place] [address] 91838- 8922 Apr, [facility] [address] [place] [address] 58425- 4089 Apr, Major depressive disorder, recurrent, moderate F33.1 ; Anxiety disorder, unspecified F41.9 and 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 [facility] [address], [place] [address]- 4462 Apr, [facility] [address] [place] [address] 42275- 4812 Mar, Major depressive disorder, recurrent, moderate F33.1 [facility] [address], [place] [address]- 8408 Mar, Major depressive disorder, recurrent, moderate F33.1 ; Generalized anxiety disorder F41.1 and Bipolar I disorder, most recent episode depressed with anxious distress F31.30 [facility] [address], [place] [address]- 2562 Mar, Diabetes E11.9 ; Non morbid obesity due to excess calories E66.09 ; Breast cancer screening Z12.39 and Encounter for immunization Z23 [facility] [address] [place] [address] 56479- 7747 Mar, Major depressive disorder, recurrent, moderate F33.1 ; Anxiety disorder, unspecified F41.9 and 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 [facility] [address] [place] [address] 40744- 9177 Mar, [facility] [id number] [place] [address] 83422- 3671 Feb, Major depressive disorder, recurrent, moderate F33.1 ; Anxiety disorder, unspecified F41.9 and 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 [facility] [id number] [place] [address] 60427- 4469 Feb, [facility] [id number] [place] [address] 89998- 8530 Feb, [facility] [id number] [place] [address] 89253- 0083 Jan, Major depressive disorder, recurrent, moderate F33.1 ; Generalized anxiety disorder F41.1 and Bipolar disorder, current episode depressed, severe, without psychotic features F31.4 [facility] [address] [place] [address] 12034- 5079 18 Jan, 2016 Major depressive disorder, recurrent, moderate F33.1 ; Anxiety disorder, unspecified F41.9 and 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 [facility] [address] [place] [address] 83255- 2460 16 Jan, 2016 Bronchitis J40 [facility] [id number] [place] [address] 31662- 8976 15 Jan, 2016 [facility] [id number] [place] [address] 03172- 4161 Jan, [facility] [id number] [place] [address] 47658- 3226 Jan, Elbow injury, right, initial encounter S59.901A ; Multiple contusions T14.8 and Cervical strain, acute, initial encounter S16.1XXA [facility] [address] [place] [address] 28416- 5790 Dec, Major depressive disorder, recurrent, moderate F33.1 ; Generalized anxiety disorder F41.1 and Bipolar disorder with depression F31.30 [facility] [address], [place] [address]- 7203 Dec, [facility] [address] [facility] [id number], [place] [address]- 4019 Dec, [facility] [id number] [place] [address] 90704- 2717 Dec, [facility] [address] [facility] [id number], [place] [address]- 2866 Dec, [facility] [address] [place] [address] 81557- 5885 Dec, Yeast infection B37.9 [facility] [address], [place] [address]- 8667 Dec, Pneumonia of both lungs due to methicillin resistant Staphylococcus aureus (MRSA), unspecified part of lung J15.212 and Benzodiazepine overdose, accidental or unintentional, subsequent encounter T42.4X1D [facility] [address], [place] [address]- 6164 Dec, [facility] [address], [place] [address]- 3430 Dec, [facility] [address], [place] [address]- 2671 Dec, Knee pain, left M25.562 and Edema, unspecified type R60.9 [facility] [address], [place] [address]- 1332 Dec, [facility] [address] [place] [address] 70314- 4881 Dec, Anxiety disorder, unspecified F41.9 and Bipolar disorder, unspecified F31.9 [facility] [address], [place] [address]- 0399 Nov, Major depressive disorder, recurrent, moderate F33.1 ; Anxiety disorder, unspecified F41.9 and Other 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 [facility] [id number] [place] [address] 60498- 9837 Nov, [facility] [id number] [place] [address] 06649- 8263 Nov, Migraine without aura and without status migrainosus, not intractable G43.009 [facility] [id number] [place] [address] 65744- 1546 Nov, Migraine G43.909 [facility] [id number] [place] [address] 34651- 3971 Nov, [facility] [id number] [place] [address] 02913- 8423 Nov, Major depressive disorder, recurrent, moderate F33.1 ; Anxiety disorder, unspecified F41.9 and 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 [facility] [address] [place] [address] 90590- 3875 Oct, Chronic constipation K59.09 and Obesity, unspecified obesity severity, unspecified obesity type E66.9 [facility] [address] [place] [address] 68036- 0830 Oct, Obesity, unspecified obesity severity, unspecified obesity type E66.9 ; Chronic constipation K59.09 and Anxiety disorder, unspecified F41.9 [facility] [address] [place] [address] 09786- 0404 Oct, [facility] [address] [place] [address] 03450- 2308 Sep, Diabetes E11.9 ; Edema, unspecified type R60.9 ; Varicose vein of leg I83.90 and Obesity, unspecified obesity severity, unspecified obesity type E66.9 [facility] [address] [place] [address] 34766- 5462 Sep, Edema, unspecified type R60.9 ; Diabetes E11.9 and Knee pain , left M25.562 [facility] [id number] [place] [address] 66453- 3693 Sep, [facility] [id number] [place] [address] 70412- 5352 Sep, [facility] [id number] [place] [address] 75936- 1989 Sep, Major depressive disorder, recurrent, moderate F33.1 ; Generalized anxiety disorder F41.1 and Bipolar disorder, unspecified F31.9 [facility] [id number] [place] [address] 21228- 9847 Aug, Chondromalacia of left knee M94.262 [facility] [id number] [place] [address] 75917- 6063 Aug, Major depressive disorder, recurrent, moderate F33.1 ; Anxiety disorder, unspecified F41.9 and 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 [facility] [id number] [place] [address] 34913- 3726 Aug, [facility] [id number] [place] [address] 99393- 7369 Aug, Osteoarthritis of left knee M17.9 [facility] [id number] [place] [address] 45953- 9375 Aug, [facility] [id number] [place] [address] 40045- 6528 July, Major depressive disorder, recurrent, moderate F33.1 ; Anxiety disorder, unspecified F41.9 and 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9 [facility] [id number] [place] [address] 06404- 1239 Jun, [facility] [id number] [place] [address] 13183- 5391 13 Jun, 2015 Generalized anxiety disorder F41.1 ; Bipolar disorder, unspecified F31.9 and Major depressive disorder, recurrent, moderate F33.1 [facility] [id number] [place] [address] [id number]- 4662 Jun, Migraine G43.909 [facility] [id number] [place] [address] 57197- 2904 07 Jun, 2015 Left knee pain M25.562 ; Chronic constipation K59.09 ; Dry mouth R68.2 ; Yeast vaginitis B37.3 and Memory loss R41.3 [facility] [id number] [place] [address] 10344- 0845 Jun, [facility] [id number] [place] [address] 52859- 6460 30 May, 2015 [facility] [id number] [place] [address] [phone]- 1360 May, [facility] [id number] [place] [address] [phone]- 4986 May, [facility] [id number] [place] [address] 82655- 6064 May, [facility] [id number] [place] [address] 60027- 0637 May, Acute bronchitis with COPD J44.0 ; Knee pain, left M25.562 and Encounter for tobacco use cessation counseling Z71.6 [place] [address] [address] [address] [address] May, [place] [id number] [place] [address] 74616- 1260 Apr, Diabetes E11.9 ; TMJ (sprain of temporomandibular joint) S03.4XXA ; Tobacco abuse Z72.0 ; Migraine G43.909 and Anxiety F41.9 [facility] [place] [id number] [place] [address] 87991- 6996 Apr, Generalized anxiety disorder F41.1 and Bipolar disorder, unspecified F31.9 [facility] [place] [id number] [place] [address] 21639- 2886 Apr, Major depressive disorder, recurrent, moderate F33.1 ; Anxiety disorder, unspecified F41.9 and 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 [place] [id number] [place] [address] 21196- 1643 Apr, [place] [id number] [place] [address] 27945- 6089 Mar, [place] [id number] [place] [address] 68002- 7473 Feb, [facility] [id number] [place] [address] 93286- 9307 14 Feb, 2015 Major depressive disorder, recurrent, moderate F33.1 ; Anxiety disorder, unspecified F41.9 and 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 [place] [id number] [place] [address] 63061- 8586 Feb, [place] [id number] [place] [address] 72123- 6713 Feb, Generalized anxiety disorder F41.1 and Bipolar disorder, unspecified F31.9 [facility] [address] [address] 8184 Jan, [facility] [id number] [place] [address] 49723- 6183 Jan, [facility] [id number] [place] [address] 24098- 3040 Jan, Bipolar disorder, unspecified F31.9 and Generalized anxiety disorder F41.1 [facility] [id number] [place] [address] 00533- 9009 Dec, [place] [address] [address]- 2206 Dec, Bipolar disorder, unspecified F31.9 and Generalized anxiety disorder F41.1 [place] [id number] [place] [address] 21319- 2452 Dec, Generalized anxiety disorder F41.1 and Major depressive disorder, recurrent, moderate F33.1 [facility] [id number] [place] [address] 05843- 2022 Oct, Headache 784.0 ; Cough 786.2 ; Vomiting and diarrhea 787.03 and Dysuria 788.1 [facility] [id number] [place] [address] 30668- 9186 Aug, [facility] [id number] [place] [address] 61172- 9016 Aug, Headache 784.0 and Shortness of breath 786.05 [facility] [id number] [place] [address] 53648- 5805 Aug, [facility] [id number] [place] [address] 39172- 9631 Aug, Migraine 346.90 [facility] [id number] [place] [address] 89247- 9441 Jun, [facility] [address] [place] [address]- 8834 13 Jun, 2014 [facility] [place] [facility] [address] [id number] [place] [address]- 0613 May, [facility] [place] [facility] [address] [id number] [place] 7330 May, [facility] [place] [facility] [address] [id number] [place] [address]- 1819 May, [facility] [place] [facility] [address] [id number] [place] [address]- 1619 May, [facility] [place] [facility] [address] [id number] [place] [address]- 3194 May, [facility] [place] [facility] [address] [id number] [place] [address]- 5393 May, [facility] [place] [facility] [address] [id number] [place] [address]- 7847 Apr, [facility] [place] [facility] [address] [id number] [place] [address]- 6633 Apr, [facility] [place] [facility] [address] [id number] [place] [address]- 7224 Apr, [facility] [place] [facility] [address] [facility] [id number] [place] [address]- 3526 Apr, [facility] [place] [facility] [address] [id number] [place] [address]- 7400 Apr, [facility] [place] [facility] [address] [id number] [place] [address]- 0377 Mar, [facility] [place] [facility] [address] [id number] [place] [address]- 4096 Mar, [facility] [place] [facility] [address] [id number] [place] [address]- 2127 Mar, [facility] [place] [facility] [address] [id number] [place] [address]- 9560 Mar, [facility] [place] [facility] [address] [id number] [place] 9600 Feb, [facility] [place] [facility] [address] [id number] [place] [address]- 1505 Feb, [facility] [place] [facility] [address] [id number] [place] 5927 Feb, [facility] [place] [facility] [address] [id number] [place] [address]- 8939 Feb, [facility] [place] [facility] [address] [id number] [place] 4438 Feb, [facility] [place] [facility] [address] [id number] [place] [address]- 8835 Feb, [facility] [place] [facility] [address] [id number] [place] [address]- 6598 Feb, [facility] [place] [facility] [address] [id number] [place] [address]- 6892 Feb, [facility] [place] [facility] [address] [id number] [place] [address]- 3306 Feb, [facility] [place] [facility] [address] [id number] [place] [address]- 7583 Feb, [facility] [place] [facility] [address] [id number] [place] [address]- 2242 Feb, [facility] [place] [facility] [address] [id number] [place] [address]- 4682 Feb, [facility] [place] [facility] [address] [id number] [place] [address]- 8521 Jan, [facility] [place] [facility] [address] [id number] [place] 2627 Jan, [facility] [place] [facility] [address] [id number] [place] [address]- 0876 Dec, [facility] [place] [facility] [address] [id number] [place] [address]- 1453 Dec, [facility] [place] [facility] [address] [id number] [place] [address]- 5950 Dec, [facility] [place] [facility] [address] [id number] [place] 2664 Dec, [facility] [place] [facility] [address] [id number] [place] [address]- 3827 Dec, [facility] [place] [facility] [address] [id number] [place] [address]- 3981 Dec, [facility] [place] [facility] [address] [id number] [place] [address]- 5736 Sep, [facility] [place] [facility] [address] [id number] [place] [address]- 4195 Sep, [facility] [place] [facility] [address] [id number] [place] [address]- 3013 Sep, [facility] [place] [facility] [address] [id number] [place] [address]- 5697 Sep, [facility] [place] [facility] [address] [id number] [place] [address]- 1800 Sep, [facility] [place] [facility] [address] [id number] [place] [address]- 2861 Sep, [facility] [place] [facility] [address] [id number] [place] [address]- 4703 Sep, [facility] [place] [facility] [address] [id number] [place] [address]- 4128 Sep, [facility] [place] [facility] [address] [id number] [place] [address]- 1954 Sep, [facility] [place] [facility] [address] [id number] [place] [address]- 7681 Sep, [facility] [place] [facility] [address] [id number] [place] [address]- 9011 Aug, [facility] [place] [facility] [address] [id number] [place] [address]- 5141 Aug, [facility] [place] [facility] [address] [id number] [place] [address]- 9060 Aug, [facility] [place] [facility] [address] [id number] [place] [address]- 3357 Aug, [facility] [place] [facility] [address] [id number] [place] [address]- 2708 Aug, [facility] [place] [facility] [address] [id number] [place] [address]- 4379 Aug, [facility] [place] [facility] [address] [id number] [place] [address]- 6778 Aug, [facility] [place] [facility] [address] [id number] [place] [address]- 9809 Aug, [facility] [place] [facility] [address] [id number] [place] [address]- 7401 Aug, [facility] [place] [facility] [address] [id number] [place] [address]- 6878 Aug, [facility] [place] [facility] [address] [id number] [place] [address]- 2590 Aug, [facility] [place] [facility] [address] [id number] [place] [address]- 4559 Aug, [facility] [place] [facility] [address] [id number] [place] [address]- 7407 Aug, [facility] [place] [facility] [address] [id number] [place] [address]- 3069 July, [facility] [place] [facility] [address] [id number] [place] [address]- 8444 July, [facility] [place] [facility] [address] [id number] [place] [address]- 0990 July, [facility] [place] [facility] [address] [id number] [place] [address]- 8151 July, [facility] [place] [facility] [address] [id number] [place] [address]- 1614 July, [facility] [place] [facility] [address] [id number] [place] [address]- 4606 July, [facility] [place] [facility] [address] [id number] [place] [address]- 8830 July, [facility] [place] [facility] [address] [id number] [place] [address]- 3055 Jun, [facility] [place] [facility] [address] [id number] [place] [address]- 1253 Jun, [facility] [place] [facility] [address] [id number] [place] [address]- 9149 Jun, [facility] [place] [facility] [address] [id number] [place] [address]- 7302 Jun, [facility] [place] [facility] [address] [id number] [place] [address]- 2780 Jun, [facility] [place] [facility] [address] [id number] [place] [address]- 4449 Jun, [facility] [place] [facility] [address] [id number] [place] [address]- 5235 Jun, [facility] [place] [facility] [address] [id number] [place] [address]- 3815 17 May, 2013 [facility] [place] [facility] [address] [id number] [place] [address]- 3624 17 May, 2013 [facility] [place] [facility] [address] [id number] [place] [address]- 6806 14 May, 2013 [facility] [place] [facility] [address] [id number] [place] [address]- 9747 14 May, 2013 [facility] [place] [facility] [address] [id number] [place] [address]- 0330 13 May, 2013 [facility] [place] [facility] [address] [id number] [place] [address]- 0396 13 May, 2013 [facility] [place] [facility] [address] [id number] [place] [address]- 3262 10 May, 2013 [facility] [place] [facility] [address] [id number] [place] [address]- 9956 10 May, 2013 [facility] [place] [facility] [address] [id number] [place] [address]- 7166 07 May, 2013 [facility] [place] [facility] [address] [id number] [place] [address]- 4169 26 Apr, 2013 [facility] [place] [facility] [address] [id number] [place] [address]- 7769 Apr, [facility] [place] [facility] [address] [id number] [place] [address]- 5193 18 Apr, 2013 [facility] [place] [facility] [address] [id number] [place] [address]- 1870 15 Apr, 2013 [facility] [place] [facility] [address] [id number] [place] [address]- 6233 15 Apr, 2013 [facility] [place] [facility] [address] [id number] [place] [address]- 3653 Apr, [facility] [place] [facility] [address] [facility] [id number] [place] [address]- 6863 05 Apr, 2013 [facility] [place] [facility] [address] [facility] [id number] [place] [address]- 4784 05 Apr, 2013 [facility] [place] [facility] [address] [id number] [place] [address]- 4561 05 Apr, 2013 [facility] [place] [facility] [address] [id number] [place] [address]- 2789 05 Apr, 2013 [facility] [place] [facility] [address] [facility] [id number] [place] [address]- 4741 Mar, [facility] [place] [facility] [address] [facility] [id number] [place] [address]- 2291 Mar, [facility] [place] [facility] [address] [id number] [place] [address]- 7123 Mar, [facility] [place] [facility] [address] [id number] [place] [address]- 2800 Mar, [facility] [place] [facility] [address] [id number] [place] [address]- 0024 Mar, [facility] [place] [facility] [address] [id number] [place] [address]- 2782 Mar, [facility] [place] [facility] [address] [id number] [place] [address]- 3965 Mar, [facility] [place] [facility] [address] [id number] [place] [address]- 3227 Mar, [facility] [place] [facility] [address] [id number] [place] [address]- 9899 Feb, [facility] [place] [facility] [address] [id number] [place] [address]- 3858 Feb, [facility] [place] [facility] [address] [id number] [place] [address]- 0035 Jan, [facility] [place] [facility] [address] [id number] [place] [address]- 6219 18 Jan, 2013 [facility] [place] [facility] [address] [id number], [place] [address]- 0994 15 Jan, 2013 [facility] [place] [facility] [address] [id number], [place] [address]- 4650 15 Jan, 2013 [facility] [place] [facility] [address] [id number] [place] [address]- 2136 Jan, [facility] [place] [facility] [address] [id number], [place] [address]- 5085 Jan, [facility] [place] [facility] [address] [id number], [place] [address]- 2670 05 Jan, 2013 [facility] [place] [facility] [address] [id number] [place] [address]- 1477 05 Jan, 2013 [facility] [place] [facility] [address] [id number] [place] [address]- 8446 Dec, [facility] [place] [facility] [address] [id number] [place] [address]- 0666 Dec, [facility] [place] [facility] [address] [id number] [place] [address]- 3386 10 Dec, 2012 [facility] [place] [facility] [address] [id number] [place] [address] 2545 20 Nov, 2012 [facility] [place] [facility] [address] [id number] [place] [address]- 2502 13 Nov, 2012 [facility] [place] [facility] [address] [id number] [place] [address]- 0091 12 Nov, 2012 [facility] [place] [facility] [address] [id number] [place] [address]- 9127 09 Nov, 2012 [facility] [place] [facility] [address] [id number] [place] [address]- 2626 06 Nov, 2012 [facility] [place] [facility] [address] [id number] [place] [address]- 7982 Nov, [facility] [place] [facility] [address] [id number] [place] [address]- 2740 Oct, [facility] [place] [facility] [address] [id number] [place] [address]- 3960 Oct, [facility] [place] [facility] [address] [id number] [place] [address]- 2549 Sep, [facility] [place] [facility] [address] [id number] [place] [address]- 7050 Sep, [facility] [place] [facility] [address] [id number] [place] [address]- 2542 Sep, [facility] [place] [facility] [address] [id number] [place] 5662 Sep, [facility] [place] [facility] [address] [id number] [place] [address]- 7476 Sep, [facility] [address] [id number] [place] [address]- 6648 Sep, [facility] [address] [id number] [place] [address]- 8729 Sep, [facility] [address] [id number] [place] [address]- 1205 Aug, [facility] [address] [id number] [place] [address]- 1830 Aug, [facility] [address] [id number] [place] [address]- 6645 Aug, [facility] [address] [id number] [place] [address]- 5258 Aug, [facility] [address] [id number] [place] [address]- 2507 Aug, [facility] [address] [id number] [place] [address]- 5238 Aug, [facility] [address] [id number] [place] [address]- 0947 July, [facility] [address] [id number] [place] [address]- 3798 July, [facility] [address] [id number] [place] [address]- 5599 July, [facility] [place] [facility] [address] [id number] [place] [address]- 4592 July, [facility] [place] [facility] [address] [id number] [place] [address]- 0148 July, [facility] [place] [facility] [address] [id number] [place] [address]- 8617 July, [facility] [place] [facility] [address] [id number] [place] [address]- 5865 Jun, [facility] [address] [id number] [place] [address]- 5501 Jun, [facility] [address] [id number] [place] [address]- 6788 15 Jun, 2012 [facility] [address] [facility] [id number] [place] [address]- 0769 Jun, [facility] [address] [id number] [place] [address]- 4818 Jun, [facility] [address] [id number] [place] [address]- 2489 Jun, [facility] [address] [facility] [id number] [place] [address]- 8237 Jun, [facility] [address] [facility] [id number] [place] [address]- 1548 May, [facility] [place] [facility] [address] [id number], [place] [address]- 1809 May, [facility] [address] [id number] [place] [address]- 9623 Apr, [facility] [address] [facility] [id number] [place] [address]- 8144 Apr, [facility] [address] [id number], [place] [address]- 6020 Apr, [facility] [place] [facility] [address] [id number], [place] [address]- 3088 Apr, [facility] [place] [facility] [address] [id number] [place] [address]- 1486 Apr, [facility] [place] [facility] [address] [id number], [place] [address]- 4642 08 Apr, 2012 [facility] [place] [facility] [address] [facility] [id number], [place] [address]- 1448 07 Apr, 2012 [facility] [place] [facility] [address] [id number] [place] [address]- 6784 07 Apr, 2012 [facility] [place] [facility] [address] [id number] [place] [address]- 4086 Apr, [facility] [place] [facility] [address] [id number] [place] [address]- 1709 Apr, [facility] [place] [facility] [address] [id number] [place] [address]- 6656 Apr, [facility] [place] [facility] [address] [id number] [place] [address]- 6187 Mar, [facility] [place] [facility] [address] [id number] [place] [address] Mar, [facility] [place] [facility] [address] [id number] [place] [address] Mar, [facility] [address] [id number] [place] [address] Mar, [facility] [place] [facility] [address] [id number] [place] [address] Mar, [facility] [place] [facility] [address] [id number] [place] [address] Mar, [facility] [place] [facility] [address] [id number] [place] [address] Mar, [facility] [place] [facility] [address] [id number], [place] [address] Mar, [facility] [place] [facility] [address] [id number] [place] [address] Mar, [facility] [place] [facility] [address] [id number] [place] [address] Mar, [facility] [place] [facility] [address] [id number], [place] [address] Mar, [facility] [place] [facility] [address] [id number] [place] [address] Mar, [facility] [address] [id number] [place] [address] Mar, [facility] [place] [facility] [address] [id number] [place] [address] Feb, [facility] [address] [id number] [place] [address] Feb, [facility] [place] [facility] [address] [id number] [place] [address] Feb, [facility] [address] [id number] [place] [address] Feb, [facility] [address] [id number] [place] [address] Feb, [facility] [address] [id number] [place] [address] Feb, [facility] [place] [facility] [address] [id number] [place] [address] Feb, [facility] [place] [facility] [address] [id number] [place] [address] Feb, [facility] [place] [facility] [address] [id number] [place] [address] 44[address] Feb, [facility] [place] [facility] [address] [id number] [place] [address] Feb, [facility] [place] [facility] [address] [id number] [place] [address] 06 Feb, 2012 [facility] [place] [facility] [address] [id number] [place] [address]- 8548 05 Feb, 2012 [facility] [place] [facility] [address] [id number] [place] [address] 05 Feb, 2012 [facility] [place] [facility] [address] [facility] [id number] [place] [address] Feb, [facility] [place] [facility] [address] [id number] [place] [address] Feb, [facility] [place] [facility] [address] [id number] [place] [address]- [address] Jan, [facility] [place] [facility] [address] [id number] [place] [address] 18[address] Jan, [facility] [place] [facility] [address] [id number] [place] [address] Jan, [facility] [place] [facility] [address] [id number] [place] [address] Jan, [facility] [place] [facility] [address] [id number] [place] [address] Dec, [facility] [place] [facility] [address] [id number] [place] [address]99 Dec, [facility] [place] [facility] [address] [id number] [place] [address]27 Dec, [facility] [place] [facility] [address] [id number] [place] [address] Dec, [facility] [place] [facility] [address] [id number] [place] [address] Dec, [facility] [place] [facility] [address] [facility] [id number] [place] [address] Dec, [facility] [place] [facility] [address] [id number] [place] [address] Dec, [facility] [place] [facility] [address] [id number] [place] [address] Dec, [facility] [place] [facility] [address] [id number] [place] [address] Dec, [facility] [place] [facility] [address] [id number] [place] [address] Dec, [facility] [place] [facility] [address] [id number] [place] [address]- [address]66 03 Dec, 2011 [facility] [place] [facility] [address] [id number] [place] [address]- [address]266 25 Sep, 2011 [facility] [place] [facility] [address] [id number] [place] [address] 24 Sep, 2011 [facility] [place] [facility] [address] [id number] [place] [address]- [address] 20 Sep, 2011 [facility] [place] [facility] [address] [id number] [place] [address]- [address] 19 Sep, 2011 [facility] [place] [facility] [address] [id number] [place] [address]- 9467 17 Sep, 2011 [facility] [place] [facility] [address] [id number] [place] [address]- 6469 16 Sep, 2011 [facility] [place] [facility] [address] [id number] [place] [address]- [address] 14 Sep, 2011 [facility] [place] [facility] [address] [id number] [place] [address] 13 Sep, 2011 [facility] [place] [facility] [address] [id number] [place] [address]- [address] 12 Sep, 2011 [facility] [place] [facility] [address] [id number] [place] [address]- [address]33 07 Sep, 2011 [facility] [place] [facility] [address] [id number], [place] [address]- [address] 06 Sep, 2011 [facility] [place] [facility] [address] [id number], [place] [address] 06 Sep, 2011 [facility] [place] [facility] [address] [id number] [place] [address]- [address]87 05 Sep, 2011 [facility] [place] [facility] [address] [id number] [place] [address]898 29 Oct, 2011 [facility] [place] [facility] [address] [id number] [place] [address]- [address] 29 Oct, 2011 [facility] [place] [facility] [address] [id number] [place] [address] Oct, [facility] [place] [facility] [address] [id number] [place] [address] Oct, [facility] [place] [facility] [address] [id number] [place] [address]66 Oct, [facility] [place] [facility] [address] [id number] [place] [address]- 3066 Oct, [facility] [place] [facility] [address] [id number] [place] [address]- [address]896 Oct, [facility] [place] [facility] [address] [id number] [place] [address]- 9668 Oct, [facility] [place] [facility] [address] [address] [id number] [place] [address] Oct, [facility] [place] [facility] [address] [id number] [place] [address] Oct, [facility] [place] [facility] [address] [id number] [place] [address] Oct, [facility] [place] [facility] [address] [id number] [place] [address] Sep, [facility] [place] [facility] [address] [id number] [place] [address] Sep, [facility] [place] [facility] [address] [id number] [place] [address] Sep, [facility] [place] [facility] [address] [id number] [place] [address] Sep, [facility] [place] [facility] [address] [id number] [place] [address] Sep, [facility] [place] [facility] [address] [id number] [place] [address] Sep, [facility] [place] [facility] [address] [id number] [place] [address] Aug, [facility] [place] [facility] [address] [id number] [place] [address] July, [facility] [place] [facility] [address] [id number] [place] [address] July, [facility] [place] [facility] [address] [id number] [place] [address] Jun, [facility] [place] [facility] [address] [id number] [place] [address] Jun, [facility] [place] [facility] [address] [id number] [place] [address] Jun, [facility] [place] [facility] [address] [id number] [place] [address] Jun, [facility] [place] [facility] [address] [id number] [place] [address] Jun, [facility] [place] [facility] [address] [id number] [place] [address] Jun, [facility] [place] [facility] [address] [id number] [place] [address] Jun, [facility] [place] [facility] [address] [id number] [place] [address] Jun, [facility] [place] [facility] [address] [id number] [place] [address] Jun, [facility] [place] [facility] [address] [id number] [place] [address] Jun, [facility] [place] [facility] [address] [id number] [place] [address] Jun, [facility] [place] [facility] [address] [id number] [place] [address] May, [facility] [place] [facility] [address] [id number] [place] [address] 16 May, 2011 [facility] [place] [facility] [address] [id number] [place] [address] May, [facility] [address] [id number] [place] [address] May, [facility] [place] [facility] [address] [id number] [place] [address] Apr, [facility] [address] [id number] [place] [address] Apr, [facility] [place] [facility] [address] [id number] [place] [address] Apr, [facility] [address] [id number] [place] [address] Apr, [facility] [place] [facility] [address] [id number] [place] [address] Apr, [facility] [address] [id number] [place] [address] Apr, [facility] [place] [facility] [address] [id number] [place] [address] Apr, [facility] [address] [id number] [place] [address] Apr, [facility] [address] [facility] [id number] [place] [address] Mar, [facility] [address] [id number] [place] [address] Mar, [facility] [place] [facility] [address] [id number] [place] [address] 25[address] Mar, [facility] [place] [facility] [address] [id number] [place] [address] 18 Mar, 2011 [facility] [place] [facility] [address] [id number] [place] [address] 17 Mar, 2011 [facility] [place] [facility] [address] [id number], [place] [address] 13 Mar, 2011 [facility] [place] [facility] [address] [id number] [place] [address] Mar, [facility] [address] [id number] [place] [address] Mar, [facility] [place] [facility] [address] [id number] [place] [address] Mar, [facility] [address] [id number] [place] [address] Mar, [facility] [address] [id number] [place] [address] Mar, [facility] [place] [facility] [address] [id number] [place] [address] Mar, [facility] [address] [id number] [place] [address] Mar, [facility] [address] [id number] [place] [address] Mar, [facility] [address] [id number] [place] [address] Mar, [facility] [address] [id number] [place] [address] 97[address] Mar, [facility] [place] [facility] [address] [id number] [place] [address] Feb, [facility] [place] [facility] [address] [id number] [place] [address] Feb, [facility] [place] [facility] [address] [id number] [place] [address] Feb, [facility] [place] [facility] [address] [id number] [place] [address] 29 Jan, 2011 [facility] [place] [facility] [address] [id number] [place] [address] 10 Jan, 2011 [facility] [place] [facility] [address] [id number], [place] [address] Jan, [facility] [address] [facility] [id number], [place] [address] Dec, [facility] [address] [facility] [id number], [place] [address] Dec, [facility] [address] [facility] [id number], [place] [address] Nov, [facility] [address] [facility] [id number], [place] [address] Oct, [facility] [address] [facility] [id number], [place] [address] Oct, [facility] [address] [facility] [id number], [place] [address] Oct, [facility] [address] [id number], [place] [address] Sep, [facility] [address] [facility] [id number], [place] [address] Apr, [facility] [address] [facility] [id number], [place] [address] Feb, [facility] [address] [facility] [id number], [place] [address] Jan, IMMUNIZATIONS No Known Immunizations SOCIAL HISTORY Never Assessed REASON FOR VISIT PLAN OF CARE VITAL SIGNS MEDICATIONS Unknown [...] History COPD-[facility] 12/30/2016 Hospitalization History [facility]-last around 2006 or so. Hospitalization History [facility] for COPD x2 Mar 2017 Hospitalization History Upper GI bleed at apr 2017 Hospitalization History [facility]- COPD Exacerbation, diarrhea 05/23/2017 Hospitalization History COPD exacerbation-[facility] 06/13/17 Hospitalization History [facility] 09/09/2017
--- OUTSIDE RECORDS SUMMARY | 2017-11-19 12:30 | XMS REPORT ---
Author Author ALIZA CARTER [facility] Address [address] [place] [address] Care Team Providers Care Perforator Name Role Phone ALIZA CARTER Unavailable PROBLEMS Type Condition ICD9-CM Code KRO20-ET Code Onset Dates Condition Status SNOMED Code Problem Generalized anxiety disorder F41.1 Active 57302806 Problem Migraine without aura and without status migrainosus, not intractable G43.009 Active 124382847 Problem Other emphysema J43.8 Active 77583500 Problem Anxiety disorder, unspecified F41.9 Active 024999954 Problem Chronic obstructive pulmonary disease with acute exacerbation J44.1 Active 597485396 Problem Methamphetamine use disorder, moderate, 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 Active 12899466 Problem Chronic bronchitis, unspecified chronic bronchitis type J42 Active 39472100 Problem Intractable cyclical vomiting with nausea G43.A1 Active 40669681 Problem Diabetes E11.9 Active 986437594 Problem 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 Active Problem Tobacco abuse Z72.0 Active 96805337 Problem Examination of eyes and vision V72.0 Active 352546388 Problem Memory loss R41.3 Active 60256205 Problem Chronic constipation K59.09 Active 476107926 Problem TMJ (sprain of temporomandibular joint) S03.4XXA Active 76930443 Problem Bipolar disorder, unspecified F31.9 Active 11781296 Problem Migraine G43.909 Active 87632371 Problem Bipolar disorder with depression F31.30 Active 32977977 ALLERGIES No Information ENCOUNTERS Encounter Location Date Diagnosis [facility] [address] [facility] [id number] [address] Sep, [facility] [address] [facility] [id number] [address] Sep, Acute congestive heart failure, unspecified heart failure type I50.9 and Anxiety disorder, unspecified F41.9 [facility] [address] [address] Sep, Heart failure, unspecified HF chronicity, unspecified heart failure type I50.9 [facility] [address] [address] 9[address] Sep, [facility] [address] [address] Aug, Chronic obstructive pulmonary disease with acute exacerbation J44.1 [facility] [address] [address] 4469 Aug, [facility] [address] [address] 1872 Aug, [facility] [address] [address] 3558 July, [facility] [address] [address] 2035 July, [facility] [address] [address] 1026 July, Diabetes E11.9 and Chronic obstructive pulmonary disease with acute exacerbation J44.1 [facility] [address] [address] 4141 Jun, Chronic obstructive pulmonary disease with acute exacerbation J44.1 ; Diabetes E11.9 and Tobacco abuse Z72.0 [facility] [address] [address] 3127 Jun, [facility] [address] [address] 6802 Jun, [facility] [address] [address] 8986 May, [facility] [address] [address] 7801 May, [facility] [id number] [place] [address] 80784 -3023 17 May, 2017 [facility] [id number] [place] [address] 78067- 7010 16 May, 2017 [facility] [id number] [place] [address] 07697- 7029 15 May, 2017 [facility] [id number] [place] [address] 55569- 3316 14 May, 2017 Diarrhea, unspecified type R19.7 and Intractable cyclical vomiting with nausea G43.A1 [facility] [id number] [place] [address] 82630- 9576 12 May, 2017 [facility] [id number] [place] [address] 52039- 8024 05 May, 2017 [facility] [id number] [place] [address] 24251- 3868 28 Apr, 2017 COPD exacerbation J44.1 ; Esophageal candidiasis B37.81 ; Other acute gastritis with hemorrhage K29.01 and Acute posthemorrhagic anemia D62 [facility] [id number] [place] [address] 37630- 1280 Apr, Viral illness B34.9 and COPD exacerbation J44.1 [facility] [id number] [place] [address] 81935 -1362 Apr, Shortness of breath R06.02 and Pneumonia of both lower lobes due to infectious organism J18.9 [facility] [id number] [place] [address] 29108 -2853 Mar, COPD with acute exacerbation J44.1 [facility] [address] [address]- 6428 Mar, Chronic obstructive pulmonary disease with acute exacerbation J44.1 and Diabetes E11.9 [facility] [id number] [place] [address] 78508- 1611 Mar, [facility] [address] [address] 1287 Mar, [facility] [id number] [place] [address] 22073 -8740 Mar, COPD exacerbation J44.1 [facility] [id number] [place] [address] 76233- 9299 Mar, [facility] [id number] [place] [address] 94203- 3331 Mar, Migraine G43.909 ; Hypokalemia E87.6 and Type 2 diabetes mellitus without complications E11.9 [facility] [id number] [place] [address] 15220- 1422 Feb, [facility] [id number] [place] [address] 88563- 1254 Feb, [facility] [id number] [place] [address] 11121- 8545 Feb, Methamphetamine use disorder, moderate, 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 ; Major depressive disorder, recurrent, moderate F33.1 ; Anxiety disorder, unspecified F41.9 and Tobacco abuse Z72.0 [facility] [facility] [address] [place] [address] 53691- 9206 30 Jan, 2017 Major depressive disorder, recurrent, moderate F33.1 [facility] [address] [place] [address] 55059- 1960 16 Jan, 2017 [facility] [id number] [place] [address] 17825- 6624 Jan, [facility] [id number] [place] [address] 80030- 7678 Jan, Major depressive disorder, recurrent, moderate F33.1 [facility] [address] [place] [address] 80777- 1062 Jan, Major depressive disorder, recurrent, moderate F33.1 ; Anxiety disorder, unspecified F41.9 ; Methamphetamine use disorder, moderate, 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 and Tobacco abuse Z72.0 [facility] [id number] [place] [address] 09825- 9122 Jan, [place] [address] 1940[address]- 9252 Jan, Chronic obstructive pulmonary disease with acute exacerbation J44.1 and Diabetes E11.9 [place] [facility] [address] 52823- 4369 Jan, [place] [facility] [address] 64281- 5599 Jan, [facility] [facility] [address] 33394- 0062 Dec, Acute respiratory failure with hypoxia J96.01 ; Chronic bronchitis, unspecified chronic bronchitis type J42 and Tobacco use Z72.0 [place] [address] 60204- 5017 Dec, [facility] [address] [id number] Nov, Dental caries K02.9 and Dental examination Z01.20 [place] [address] 15463- 9005 Nov, Major depressive disorder, recurrent, moderate F33.1 ; Anxiety disorder, unspecified F41.9 and 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 [facility] [address] [id number] Oct, Dental examination Z01.20 [place] [address] 64665- 4330 Oct, [place] [facility] [address] 42589- 5850 Oct, Diabetes E11.9 and Thrush B37.0 [place] [facility] [address] 52809- 8884 Oct, [facility] [address] [address]- 4295 Oct, [facility] [id number] [place] [address] 21478- 8762 Oct, [facility] [id number] [place] [address] 78248- 4319 Sep, Major depressive disorder, recurrent, moderate F33.1 ; Anxiety disorder, unspecified F41.9 and Bipolar disorder, unspecified F31.9 [facility] [address] [place] [address] 68047- 6668 Sep, Acute exacerbation of chronic obstructive pulmonary disease (COPD) J44.1 and Migraine G43.909 [facility] [id number] [place] [address] 00120- 0986 Sep, [facility] [id number] [place] [address] [id number] Sep, [facility] [id number] [place] [address] 77943- 1762 Sep, Acute exacerbation of chronic obstructive pulmonary disease (COPD) J44.1 [facility] [address] [address]73 Sep, Acute exacerbation of chronic obstructive pulmonary disease (COPD) J44.1 [facility] [address] [address]- 2679 Aug, [facility] [id number] [place] [address] 66585- 9840 Aug, Major depressive disorder, recurrent, moderate F33.1 ; Anxiety disorder, unspecified F41.9 and 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 [facility] [address] [address]- 3438 Aug, Wheezing R06.2 ; Non morbid obesity due to excess calories E66.09 ; Migraine without aura and without status migrainosus, not intractable G43.009 and Tobacco abuse Z72.0 [facility] [address] [place] [address] [id number] 14 Aug, 2016 Encounter for dental examination Z01.20 [facility] [id number] [place] [address] 62819- 5325 02 Aug, 2016 Major depressive disorder, recurrent, moderate F33.1 ; Anxiety disorder, unspecified F41.9 and 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 [facility] [id number] [place] [address] 93101- 8089 July, [facility] [address] 35122- 5458 July, [facility] [address] 22604- 8380 July, [facility] [address] 00109- 0912 July, Diabetes E11.9 [facility] [id number] [place] [address] 60681- 0649 Jun, Major depressive disorder, recurrent, moderate F33.1 [facility] [id number] [place] [address] 70110- 2644 Jun, Major depressive disorder, recurrent, moderate F33.1 ; 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 ; Generalized anxiety disorder F41.1 and Bipolar disorder, unspecified F31.9 [facility] [id number] [place] [address] 11801- 3105 Jun, Diabetes E11.9 ; Migraine G43.909 ; Thrush B37.0 and Wheezing R06.2 [facility] [address] [place] [address] [id number] 24 Jun, 2016 Dental examination Z01.20 [facility] [id number] [place] [address] 99128- 1067 21 Jun, 2016 [facility] [address] [place] [address] 78021- 7155 Jun, Major depressive disorder, recurrent, moderate F33.1 ; Anxiety disorder, unspecified F41.9 and 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 [place] [address] [place] [address] 16255- 9098 Jun, [place] [address] 751871- 4109 Jun, Wheezing R06.2 [facility] [id number] [place] [address] [id number] Jun, Dental caries K02.9 [place] [id number] [place] [address] 003747- 8951 Jun, Major depressive disorder, recurrent, moderate F33.1 ; Anxiety disorder, unspecified F41.9 and 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 [place] [id number] [place] [address] 09443- 6910 Jun, RLQ abdominal pain R10.31 ; Diabetes E11.9 ; Obesity, unspecified obesity severity, unspecified obesity type E66.9 ; Wheezing R06.2 and Abnormal urinalysis R82.90 [place] [address] [place] [address] 96302- 2578 May, [place] [facility] [id number] [place] [address] 86694- 7748 May, Well woman exam Z01.419 ; Breast cancer screening Z12.39 ; Cervical cancer screening Z12.4 ; Urinary frequency R35.0 ; Edema, unspecified type R60.9 and Chronic constipation K59.09 [place] [id number] [place] [address]902 May, Major depressive disorder, recurrent, moderate F33.1 ; Anxiety disorder, unspecified F41.9 and Other stimulant 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 [facility] [id number] [id number] 07 May, 2016 Dental examination Z01.20 [place] [address] [address]- 6848 May, [facility] [address] [address]- 9783 May, [place] [address] [place] [address] 45308- 9462 May, Chronic constipation K59.09 [facility] [id number] [place] [address] 33111- 5938 Apr, [facility] [address] [place] [address] 32992- 2241 Apr, Major depressive disorder, recurrent, moderate F33.1 ; Anxiety disorder, unspecified F41.9 and 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 [place] [address] [address]- 5499 Apr, [facility] [address] [place] [address] 38734- 1232 Mar, Major depressive disorder, recurrent, moderate F33.1 [place] [address] [address]- 7147 Mar, Major depressive disorder, recurrent, moderate F33.1 ; Generalized anxiety disorder F41.1 and Bipolar I disorder, most recent episode depressed with anxious distress F31.30 [place] [address] [address]- 7339 Mar, Diabetes E11.9 ; Non morbid obesity due to excess calories E66.09 ; Breast cancer screening Z12.39 and Encounter for immunization Z23 [facility] [address] [place] [address] 80127- 2121 Mar, Major depressive disorder, recurrent, moderate F33.1 ; Anxiety disorder, unspecified F41.9 and 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 [facility] [address] [place] [address] 63109- 0898 Mar, [facility] [id number] [place] [address] 67708- 5029 Feb, Major depressive disorder, recurrent, moderate F33.1 ; Anxiety disorder, unspecified F41.9 and 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 [facility] [id number] [place] [address] 20912- 7183 Feb, [facility] [id number] [place] [address] 02607- 3073 Feb, [facility] [id number] [place] [address] 15901- 8439 Jan, Major depressive disorder, recurrent, moderate F33.1 ; Generalized anxiety disorder F41.1 and Bipolar disorder, current episode depressed, severe, without psychotic features F31.4 [facility] [address] [place] [address] 83949- 6767 18 Jan, 2016 Major depressive disorder, recurrent, moderate F33.1 ; Anxiety disorder, unspecified F41.9 and 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 [facility] [address] [place] [address] 31705- 6491 16 Jan, 2016 Bronchitis J40 [facility] [id number] [place] [address] 49767- 1224 15 Jan, 2016 [facility] [id number] [place] [address] 54582- 6294 Jan, [facility] [id number] [place] [address] 68347- 2179 Jan, Elbow injury, right, initial encounter S59.901A ; Multiple contusions T14.8 and Cervical strain, acute, initial encounter S16.1XXA [facility] [id number] [place] [address] 20874- 5752 Dec, Major depressive disorder, recurrent, moderate F33.1 ; Generalized anxiety disorder F41.1 and Bipolar disorder with depression F31.30 [facility] [address] [address]- 2615 Dec, [facility] [address] [facility] [id number] [address]- 2640 Dec, [facility] [address] [place] [address] 13927- 1590 Dec, [facility] [address] [facility] [id number] [address]- 2031 Dec, [place] [address] [place] [address] 23466- 7352 Dec, Yeast infection B37.9 [place] [address] [address]- 4036 Dec, Pneumonia of both lungs due to methicillin resistant Staphylococcus aureus (MRSA), unspecified part of lung J15.212 and Benzodiazepine overdose, accidental or unintentional, subsequent encounter T42.4X1D [facility] [address] [address]- 7925 Dec, [facility] [address] [address]- 0776 Dec, [facility] [address] [address]- 2087 Dec, Knee pain, left M25.562 and Edema, unspecified type R60.9 [facility] [address] [address]- 1662 Dec, [facility] [address] [place] [address] 39335- 5310 Dec, Anxiety disorder, unspecified F41.9 and Bipolar disorder, unspecified F31.9 [facility] [address] [address]- 9675 Nov, Major depressive disorder, recurrent, moderate F33.1 ; Anxiety disorder, unspecified F41.9 and Other 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 [place] [id number] [place] [address] 84988- 6546 Nov, [place] [id number] [place] [address] 73156- 6924 Nov, Migraine without aura and without status migrainosus, not intractable G43.009 [place] [id number] [place] [address] 08147- 1572 Nov, Migraine G43.909 [place] [id number] [place] [address] 25331- 1050 Nov, [place] [id number] [place] [address] 79174- 0961 Nov, Major depressive disorder, recurrent, moderate F33.1 ; Anxiety disorder, unspecified F41.9 and 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 [place] [id number] [place] [address] 98578- 0753 Oct, Chronic constipation K59.09 and Obesity, unspecified obesity severity, unspecified obesity type E66.9 [place] [id number] [place] [address] 91289- 5854 Oct, Obesity, unspecified obesity severity, unspecified obesity type E66.9 ; Chronic constipation K59.09 and Anxiety disorder, unspecified F41.9 [place] [address] [place] [address] 97604- 0408 Oct, [place] [id number] [place] [address] 21916- 4048 Sep, Diabetes E11.9 ; Edema, unspecified type R60.9 ; Varicose vein of leg I83.90 and Obesity, unspecified obesity severity, unspecified obesity type E66.9 [place] [id number] [place] [address] 04929- 7470 Sep, Edema, unspecified type R60.9 ; Diabetes E11.9 and Knee pain , left M25.562 [facility] [id number] [place] [address] 58214- 5977 Sep, [facility] [id number] [place] [address] 13111- 4348 Sep, [facility] [id number] [place] [address] 03767- 0402 Sep, Major depressive disorder, recurrent, moderate F33.1 ; Generalized anxiety disorder F41.1 and Bipolar disorder, unspecified F31.9 [facility] [id number] [place] [address] 41844- 7538 Aug, Chondromalacia of left knee M94.262 [facility] [id number] [place] [address] 30604- 8357 Aug, Major depressive disorder, recurrent, moderate F33.1 ; Anxiety disorder, unspecified F41.9 and 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 [facility] [id number] [place] [address] 24676- 6758 Aug, [facility] [id number] [place] [address] 92152- 3222 Aug, Osteoarthritis of left knee M17.9 [facility] [id number] [place] [address] 79227- 2138 Aug, [facility] [id number] [place] [address] 66690- 6638 July, Major depressive disorder, recurrent, moderate F33.1 ; Anxiety disorder, unspecified F41.9 and 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 [facility] [address] [place] [address] 77394- 3710 July, [facility] [id number] [place] [address] 29672- 8464 July, Chronic constipation K59.09 [facility] [address] [place] [address] 37310- 7637 Jun, [facility] [id number] [place] [address] [phone]- 8281 15 Jun, 2015 [facility] [id number] [place] [address] 24559- 0301 14 Jun, 2015 Osteoarthritis of left knee M17.9 [facility] [id number] [place] [address] 70621- 7282 Jun, [facility] [id number] [place] [address] 11408- 5046 13 Jun, 2015 Generalized anxiety disorder F41.1 ; Bipolar disorder, unspecified F31.9 and Major depressive disorder, recurrent, moderate F33.1 [facility] [id number] [place] [address] 44302- 8696 Jun, Migraine G43.909 [facility] [id number] [place] [address] 38953- 7703 07 Jun, 2015 Left knee pain M25.562 ; Chronic constipation K59.09 ; Dry mouth R68.2 ; Yeast vaginitis B37.3 and Memory loss R41.3 [facility] [id number] [place] [address] 85522- [phone] Jun, [facility] [id number] [place] [address] 41906- 1570 30 May, 2015 [facility] [facility] [id number] [place] [address] 48895- 8544 May, [facility] [id number] [place] [address] 31518- 8919 May, [facility] [id number] [place] [address] 05034- 2781 May, [facility] [id number] [place] [address] 25094- 7983 May, Acute bronchitis with COPD J44.0 ; Knee pain, left M25.562 and Encounter for tobacco use cessation counseling Z71.6 [address] [address] 25292- 9067 May, [place] [id number] [place] [address] 61990- 6735 Apr, Diabetes E11.9 ; TMJ (sprain of temporomandibular joint) S03.4XXA ; Tobacco abuse Z72.0 ; Migraine G43.909 and Anxiety F41.9 [place] [id number] [place] [address] 56306- 8100 Apr, Generalized anxiety disorder F41.1 and Bipolar disorder, unspecified F31.9 [place] [id number] [place] [address] 30667- 8507 Apr, Major depressive disorder, recurrent, moderate F33.1 ; Anxiety disorder, unspecified F41.9 and 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 [place] [id number] [place] [address] 82368- 4027 Apr, [place] [id number] [place] [address] 76838- 6443 Mar, [place] [id number] [place] [address] 80671- 3431 Feb, [place] [id number] [place] [address] 73168- 4272 14 Feb, 2015 Major depressive disorder, recurrent, moderate F33.1 ; Anxiety disorder, unspecified F41.9 and 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9 and Generalized anxiety disorder F41.1 [facility] [id number] [place] [address] 99907- 4801 Dec, [place] [address] 85626- 0031 Dec, Bipolar disorder, unspecified F31.9 and Generalized anxiety disorder F41.1 [place] [id number] [place] [address] 64379- 0191 Dec, Generalized anxiety disorder F41.1 and Major depressive disorder, recurrent, moderate F33.1 [facility] [id number] [place] [address] 08416- 4497 Oct, Headache 784.0 ; Cough 786.2 ; Vomiting and diarrhea 787.03 and Dysuria 788.1 [facility] [id number] [place] [address] 56291- 1299 Aug, [facility] [id number] [place] [address] 02536- 4460 Aug, Headache 784.0 and Shortness of breath 786.05 [facility] [id number] [place] [address] 66199- 3904 Aug, [facility] [id number] [place] [address] 89081- 8352 Aug, Migraine 346.90 [facility] [id number] [place] [address] 42306- 4520 Jun, [facility] [address] [place] [address]- 1653 13 Jun, 2014 [facility] [place] [facility] [address] [id number] [place] [address]- 6147 May, [facility] [place] [facility] [address] [id number] [place] 4851 May, [facility] [place] [facility] [address] [id number] [place] [address]- 2555 May, [facility] [place] [facility] [address] [id number] [place] [address]- 0803 May, [facility] [place] [facility] [address] [id number] [place] [address]- 9055 May, [facility] [place] [facility] [address] [id number] [place] [address]- 1985 May, [facility] [place] [facility] [address] [id number] [place] [address]- 5079 Apr, [facility] [place] [facility] [address] [id number] [place] [address]- 0890 Apr, [facility] [place] [facility] [address] [id number] [place] [address]- 1141 Apr, [facility] [place] [facility] [address] [facility] [id number] [place] [address]- 8764 Apr, [facility] [place] [facility] [address] [id number] [place] [address]- 9581 Apr, [facility] [place] [facility] [address] [id number] [place] [address]- 3280 Mar, [facility] [place] [facility] [address] [id number] [place] [address]- 5530 Mar, [facility] [place] [facility] [address] [id number] [place] [address]- 3613 Mar, [facility] [place] [facility] [address] [id number] [place] [address]- 4676 Mar, [facility] [place] [facility] [address] [id number] [place] 2321 Feb, [facility] [place] [facility] [address] [id number] [place] [address]- 8967 Feb, [facility] [place] [facility] [address] [id number] [place] 8823 Feb, [facility] [place] [facility] [address] [id number] [place] [address]- 7694 Feb, [facility] [place] [facility] [address] [id number] [place] 7060 Feb, [facility] [place] [facility] [address] [id number] [place] [address]- 4066 Feb, [facility] [place] [facility] [address] [id number] [place] [address]- 1830 Feb, [facility] [place] [facility] [address] [id number] [place] [address]- 6779 Feb, [facility] [place] [facility] [address] [id number] [place] [address]- 0367 Feb, [facility] [place] [facility] [address] [id number] [place] [address]- 6201 Feb, [facility] [place] [facility] [address] [id number] [place] [address]- 8773 Feb, [facility] [place] [facility] [address] [id number] [place] [address]- 7195 Feb, [facility] [place] [facility] [address] [id number] [place] [address]- 1583 Jan, [facility] [place] [facility] [address] [id number] [place] 3685 Jan, [facility] [place] [facility] [address] [id number] [place] [address]- 6495 Dec, [facility] [place] [facility] [address] [id number] [place] [address]- 5171 Dec, [facility] [place] [facility] [address] [id number] [place] [address]- 5587 Dec, [facility] [place] [facility] [address] [id number] [place] 4213 Dec, [facility] [place] [facility] [address] [id number] [place] [address]- 7677 Dec, [facility] [place] [facility] [address] [id number] [place] [address]- 6437 Dec, [facility] [place] [facility] [address] [id number] [place] [address]- 3640 Sep, [facility] [place] [facility] [address] [id number] [place] [address]- 2613 Sep, [facility] [place] [facility] [address] [id number] [place] [address]- 6806 Sep, [facility] [place] [facility] [address] [id number] [place] [address]- 9617 Sep, [facility] [place] [facility] [address] [id number] [place] [address]- 2651 Sep, [facility] [place] [facility] [address] [id number] [place] [address]- 8407 Sep, [facility] [place] [facility] [address] [id number] [place] [address]- 9955 Sep, [facility] [place] [facility] [address] [id number] [place] [address]- 4240 Sep, [facility] [place] [facility] [address] [id number] [place] [address]- 5006 Sep, [facility] [place] [facility] [address] [id number] [place] [address]- 3357 Sep, [facility] [place] [facility] [address] [id number] [place] [address]- 2207 Aug, [facility] [place] [facility] [address] [id number] [place] [address]- 3612 Aug, [facility] [place] [facility] [address] [id number] [place] [address]- 0075 Aug, [facility] [place] [facility] [address] [id number] [place] [address]- 1341 Aug, [facility] [place] [facility] [address] [id number] [place] [address]- 7306 Aug, [facility] [place] [facility] [address] [id number] [place] [address]- 7311 Aug, [facility] [place] [facility] [address] [id number] [place] [address]- 6316 Aug, [facility] [place] [facility] [address] [id number] [place] [address]- 7696 Aug, [facility] [place] [facility] [address] [id number] [place] [address]- 8648 Aug, [facility] [place] [facility] [address] [id number] [place] [address]- 3086 Aug, [facility] [place] [facility] [address] [id number] [place] [address]- 7309 Aug, [facility] [place] [facility] [address] [id number] [place] [address]- 2756 Aug, [facility] [place] [facility] [address] [id number] [place] [address]- 0362 Aug, [facility] [place] [facility] [address] [id number] [place] [address]- 3154 July, [facility] [place] [facility] [address] [id number] [place] [address]- 5313 July, [facility] [place] [facility] [address] [id number] [place] [address]- 9257 July, [facility] [place] [facility] [address] [id number] [place] [address]- 0336 July, [facility] [place] [facility] [address] [id number] [place] [address]- 8821 July, [facility] [place] [facility] [address] [id number] [place] [address]- 3300 July, [facility] [place] [facility] [address] [id number] [place] [address]- 0863 July, [facility] [place] [facility] [address] [id number] [place] [address]- 1777 Jun, [facility] [place] [facility] [address] [id number] [place] [address]- 7109 Jun, [facility] [place] [facility] [address] [id number] [place] [address]- 2948 Jun, [facility] [place] [facility] [address] [id number] [place] [address]- 5727 Jun, [facility] [place] [facility] [address] [id number] [place] [address]- 5585 Jun, [facility] [place] [facility] [address] [id number] [place] [address]- 2793 Jun, [facility] [place] [facility] [address] [id number] [place] [address]- 2047 Jun, [facility] [place] [facility] [address] [id number] [place] [address]- 2250 17 May, 2013 [facility] [place] [facility] [address] [id number] [place] [address]- 7452 17 May, 2013 [facility] [place] [facility] [address] [id number] [place] [address]- 0978 14 May, 2013 [facility] [place] [facility] [address] [id number] [place] [address]- 9766 14 May, 2013 [facility] [place] [facility] [address] [id number] [place] [address]- 1673 13 May, 2013 [facility] [place] [facility] [address] [id number] [place] [address]- 4057 13 May, 2013 [facility] [place] [facility] [address] [id number] [place] [address]- 3519 10 May, 2013 [facility] [place] [facility] [address] [id number] [place] [address]- 6370 10 May, 2013 [facility] [place] [facility] [address] [id number] [place] [address]- 9234 07 May, 2013 [facility] [place] [facility] [address] [id number] [place] [address]- 4757 26 Apr, 2013 [facility] [place] [facility] [address] [id number] [place] [address]- 3475 Apr, [facility] [place] [facility] [address] [id number] [place] [address]- 3823 18 Apr, 2013 [facility] [place] [facility] [address] [id number] [place] [address]- 6541 15 Apr, 2013 [facility] [place] [facility] [address] [id number] [place] [address]- 9723 15 Apr, 2013 [facility] [place] [facility] [address] [id number] [place] [address]- 2017 Apr, [facility] [place] [facility] [address] [facility] [id number] [place] [address]- 2836 05 Apr, 2013 [facility] [place] [facility] [address] [facility] [id number] [place] [address]- 8313 05 Apr, 2013 [facility] [place] [facility] [address] [id number] [place] [address]- 3563 05 Apr, 2013 [facility] [place] [facility] [address] [id number] [place] [address]- 3674 05 Apr, 2013 [facility] [place] [facility] [address] [facility] [id number] [place] [address]- 1811 Mar, [facility] [place] [facility] [address] [facility] [id number] [place] [address]- 9359 Mar, [facility] [place] [facility] [address] [id number] [place] [address]- 9701 Mar, [facility] [place] [facility] [address] [id number] [place] [address]- 1743 Mar, [facility] [place] [facility] [address] [id number] [place] [address]- 8561 Mar, [facility] [place] [facility] [address] [id number] [place] [address]- 9491 Mar, [facility] [place] [facility] [address] [id number] [place] [address]- 6469 Mar, [facility] [place] [facility] [address] [id number] [place] [address]- 3811 Mar, [facility] [place] [facility] [address] [id number] [place] [address]- 8787 Feb, [facility] [place] [facility] [address] [id number] [place] [address]- 7018 Feb, [facility] [place] [facility] [address] [id number] [place] [address]- 3587 Jan, [facility] [place] [facility] [address] [id number] [place] [address]- 3020 18 Jan, 2013 [facility] [place] [facility] [address] [id number] [place] [address]- 2184 15 Jan, 2013 [facility] [place] [facility] [address] [id number] [place] [address]- 6569 15 Jan, 2013 [facility] [place] [facility] [address] [id number] [place] [address]- 9551 Jan, [facility] [place] [facility] [address] [id number] [place] [address]- 3734 Jan, [facility] [place] [facility] [address] [id number] [place] [address]- 5878 05 Jan, 2013 [facility] [place] [facility] [address] [id number] [place] [address]- 5915 05 Jan, 2013 [facility] [place] [facility] [address] [id number] [place] [address]- 4176 Dec, [facility] [place] [facility] [address] [id number] [place] [address]- 8626 Dec, [facility] [place] [facility] [address] [id number] [place] [address]- 7956 10 Dec, 2012 [facility] [place] [facility] [address] [id number] [place] [address] 2543 20 Nov, 2012 [facility] [place] [facility] [address] [id number] [place] [address]- 2330 13 Nov, 2012 [facility] [place] [facility] [address] [id number] [place] [address]- 3622 12 Nov, 2012 [facility] [place] [facility] [address] [id number] [place] [address]- 1733 09 Nov, 2012 [facility] [place] [facility] [address] [id number] [place] [address]- 8440 06 Nov, 2012 [facility] [place] [facility] [address] [id number] [place] [address]- 0181 Nov, [facility] [place] [facility] [address] [id number] [place] [address]- 3966 Oct, [facility] [place] [facility] [address] [id number] [place] [address]- 3440 Oct, [facility] [place] [facility] [address] [id number] [place] [address]- 2543 Sep, [facility] [place] [facility] [address] [id number] [place] [address]- 3582 Sep, [facility] [place] [facility] [address] [id number] [place] [address]- 2544 Sep, [facility] [place] [facility] [address] [id number] [place] 0524 Sep, [facility] [place] [facility] [address] [id number] [place] [address]- 5441 Sep, [facility] [address] [id number] [place] [address]- 0571 Sep, [facility] [address] [id number] [place] [address]- 8124 Sep, [facility] [address] [id number] [place] [address]- 2590 Aug, [facility] [address] [id number] [place] [address]- 8533 Aug, [facility] [address] [id number] [place] [address]- 6421 Aug, [facility] [address] [id number] [place] [address]- 8775 Aug, [facility] [address] [id number] [place] [address]- 8079 Aug, [facility] [address] [id number] [place] [address]- 3911 Aug, [facility] [address] [id number] [place] [address]- 5249 July, [facility] [address] [id number] [place] [address]- 1489 July, [facility] [address] [id number] [place] [address]- 3945 July, [facility] [place] [facility] [address] [id number] [place] [address]- 3301 July, [facility] [place] [facility] [address] [id number] [place] [address]- 4492 July, [facility] [place] [facility] [address] [id number] [place] [address]- 6351 July, [facility] [place] [facility] [address] [id number] [place] [address]- 9873 Jun, [facility] [address] [id number] [place] [address]- 4959 Jun, [facility] [address] [id number] [place] [address]- 6420 15 Jun, 2012 [facility] [address] [facility] [id number] [place] [address]- 8782 Jun, [facility] [address] [id number] [place] [address]- 8796 Jun, [facility] [address] [id number] [place] [address]- 9125 Jun, [facility] [address] [facility] [id number] [place] [address]- 2624 Jun, [facility] [address] [facility] [id number] [place] [address]- 5279 May, [facility] [place] [facility] [address] [id number] [place] [address]- 2348 May, [facility] [address] [id number] [place] [address]- 5978 Apr, [facility] [address] [facility] [id number] [place] [address]- 9190 Apr, [facility] [address] [id number] [place] [address]- 7105 Apr, [facility] [place] [facility] [address] [id number] [place] [address]- 5715 Apr, [facility] [place] [facility] [address] [id number] [place] [address]- 3421 Apr, [facility] [place] [facility] [address] [id number] [place] [address]- 5699 08 Apr, 2012 [facility] [place] [facility] [address] [facility] [id number] [place] [address]- 4708 07 Apr, 2012 [facility] [place] [facility] [address] [id number] [place] [address]- 7231 07 Apr, 2012 [facility] [place] [facility] [address] [id number] [place] [address]- 4996 Apr, [facility] [place] [facility] [address] [id number] [place] [address]- 0786 Apr, [facility] [place] [facility] [address] [id number] [place] [address] Apr, [facility] [place] [facility] [address] [id number] [place] [address] Mar, [facility] [place] [facility] [address] [id number] [place] [address] Mar, [facility] [place] [facility] [address] [id number] [place] [address] Mar, [facility] [address] [id number] [place] [address] Mar, [facility] [place] [facility] [address] [id number] [place] [address] Mar, [facility] [place] [facility] [address] [id number] [place] [address] Mar, [facility] [place] [facility] [address] [id number] [place] [address] Mar, [facility] [place] [facility] [address] [id number] [place] [address] Mar, [facility] [place] [facility] [address] [id number] [place] [address] Mar, [facility] [place] [facility] [address] [id number] [place] [address] 1790 Mar, [facility] [place] [facility] [address] [id number] [place] [address] Mar, [facility] [place] [facility] [address] [id number] [place] [address] 2573 Mar, [facility] [address] [id number] [place] [address] Mar, [facility] [place] [facility] [address] [id number] [place] [address] 8946 Feb, [facility] [address] [id number] [place] [address] Feb, [facility] [place] [facility] [address] [id number] [place] [address]106 Feb, [facility] [address] [id number] [place] [address] 67[address] Feb, [facility] [address] [id number] [place] [address] 1709 Feb, [facility] [address] [id number] [place] [address]- 8092 Feb, [facility] [place] [facility] [address] [id number] [place] [address] Feb, [facility] [place] [facility] [address] [id number] [place] [address] 1757 Feb, [facility] [place] [facility] [address] [id number] [place] [address] Feb, [facility] [place] [facility] [address] [id number] [place] [address] Feb, [facility] [place] [facility] [address] [id number] [place] [address]- 7276 06 Feb, 2012 [facility] [place] [facility] [address] [id number] [place] [address] 8003 05 Feb, 2012 [facility] [place] [facility] [address] [id number] [place] [address]- 1052 05 Feb, 2012 [facility] [place] [facility] [address] [facility] [id number] [place] [address] 69[address] Feb, [facility] [place] [facility] [address] [id number] [place] [address]- 4889 Feb, [facility] [place] [facility] [address] [id number] [place] [address] 6792 Jan, [facility] [place] [facility] [address] [id number] [place] [address]- [address] Jan, [facility] [place] [facility] [address] [id number] [place] [address] 3940 Jan, [facility] [place] [facility] [address] [id number] [place] [address]- 8204 Jan, [facility] [place] [facility] [address] [id number] [place] [address]234 Dec, [facility] [place] [facility] [address] [id number] [place] [address]- 1490 Dec, [facility] [place] [facility] [address] [id number] [place] [address]- 4742 Dec, [facility] [place] [facility] [address] [id number] [place] [address] 0678 Dec, [facility] [place] [facility] [address] [id number] [place] [address]- 2650 Dec, [facility] [place] [facility] [address] [facility] [id number] [place] [address] Dec, [facility] [place] [facility] [address] [id number] [place] [address]- 7561 Dec, [facility] [place] [facility] [address] [id number] [place] [address]- 9114 Dec, [facility] [place] [facility] [address] [id number] [place] [address]- 5815 Dec, [facility] [place] [facility] [address] [id number] [place] [address]- 5636 Dec, [facility] [place] [facility] [address] [id number] [place] [address]- 4339 03 Dec, 2011 [facility] [place] [facility] [address] [id number] [place] [address]- 9454 25 Sep, 2011 [facility] [place] [facility] [address] [id number] [place] [address]- 9862 24 Sep, 2011 [facility] [place] [facility] [address] [id number] [place] [address]- 0590 20 Sep, 2011 [facility] [place] [facility] [address] [id number] [place] [address]- 9510 19 Sep, 2011 [facility] [place] [facility] [address] [id number] [place] [address]- 3135 17 Sep, 2011 [facility] [place] [facility] [address] [id number] [place] [address]- 4534 16 Sep, 2011 [facility] [place] [facility] [address] [id number] [place] [address]- 7203 14 Sep, 2011 [facility] [place] [facility] [address] [id number] [place] [address]- 2406 13 Sep, 2011 [facility] [place] [facility] [address] [id number] [place] [address]- 7551 12 Sep, 2011 [facility] [place] [facility] [address] [id number] [place] [address]- 6889 07 Sep, 2011 [facility] [place] [facility] [address] [id number] [place] [address]- 7926 06 Sep, 2011 [facility] [place] [facility] [address] [id number] [place] [address]- 4868 06 Sep, 2011 [facility] [place] [facility] [address] [id number] [place] [address]- 6116 05 Sep, 2011 [facility] [place] [facility] [address] [id number] [place] [address]- 7421 29 Oct, 2011 [facility] [place] [facility] [address] [id number] [place] [address]- 8321 29 Oct, 2011 [facility] [place] [facility] [address] [id number] [place] [address]- 4952 Oct, [facility] [place] [facility] [address] [id number] [place] [address]- 3421 Oct, [facility] [place] [facility] [address] [id number] [place] [address]- 1116 Oct, [facility] [place] [facility] [address] [id number] [place] [address]- 7446 Oct, [facility] [place] [facility] [address] [id number] [place] [address]- 5056 Oct, [facility] [place] [facility] [address] [id number] [place] [address]- 1842 Oct, [facility] [place] [facility] [address] [id number] [place] [address]- 6356 Oct, [facility] [place] [facility] [address] [id number] [place] [address]- 0683 Oct, [facility] [place] [facility] [address] [id number] [place] [address]- 3030 Oct, [facility] [place] [facility] [address] [id number] [place] [address]- 7472 Sep, [facility] [place] [facility] [address] [id number] [place] [address]- 6727 Sep, [facility] [place] [facility] [address] [id number] [place] [address]- 7768 Sep, [facility] [place] [facility] [address] [id number] [place] [address]- 2541 Sep, [facility] [place] [facility] [address] [id number] [place] [address]- 9917 Sep, [facility] [place] [facility] [address] [id number] [place] [address] Sep, [facility] [place] [facility] [address] [id number] [place] [address] Aug, [facility] [place] [facility] [address] [id number] [place] [address] July, [facility] [place] [facility] [address] [id number] [place] [address] July, [facility] [place] [facility] [address] [id number] [place] [address] Jun, [facility] [place] [facility] [address] [id number] [place] [address] Jun, [facility] [place] [facility] [address] [id number] [place] [address] Jun, [facility] [place] [facility] [address] [id number] [place] [address] Jun, [facility] [place] [facility] [address] [id number] [place] [address] Jun, [facility] [place] [facility] [address] [id number] [place] [address] Jun, [facility] [place] [facility] [address] [id number] [place] [address] Jun, [facility] [place] [facility] [address] [id number] [place] [address] Jun, [facility] [place] [facility] [address] [id number] [place] [address] Jun, [facility] [place] [facility] [address] [id number] [place] [address] 1999 Jun, [facility] [place] [facility] [address] [id number] [place] [address] Jun, [facility] [place] [facility] [address] [id number] [place] [address] May, [facility] [place] [facility] [address] [id number] [place] [address] 16 May, 2011 [facility] [place] [facility] [address] [id number] [place] [address] May, [facility] [address] [id number] [place] [address] May, [facility] [place] [facility] [address] [id number] [place] [address] Apr, [facility] [address] [id number] [place] [address] Apr, [facility] [place] [facility] [address] [id number] [place] [address] Apr, [facility] [address] [id number] [place] [address] Apr, [facility] [place] [facility] [address] [id number] [place] [address] Apr, [facility] [address] [id number] [place] [address] Apr, [facility] [place] [facility] [address] [id number] [place] [address]- [address] Apr, [facility] [address] [id number] [place] [address] Apr, [facility] [address] [facility] [id number] [place] [address] Mar, [facility] [address] [id number] [place] [address] Mar, [facility] [place] [facility] [address] [id number] [place] [address] Mar, [facility] [place] [facility] [address] [id number] [place] [address] 18 Mar, 2011 [facility] [place] [facility] [address] [id number] [place] [address] 17 Mar, 2011 [facility] [place] [facility] [address] [id number] [place] [address] 13 Mar, 2011 [facility] [place] [facility] [address] [id number] [place] [address] Mar, [facility] [address] [id number] [place] [address] Mar, [facility] [place] [facility] [address] [id number] [place] [address] Mar, [facility] [address] [id number] [place] [address] Mar, [facility] [address] [id number] [place] [address] Mar, [facility] [place] [facility] [address] [id number] [place] [address] Mar, [facility] [address] [id number] [place] [address] Mar, [facility] [address] [id number] [place] [address] Mar, [facility] [address] [id number] [place] [address] Mar, [facility] [address] [id number] [place] [address] Mar, [facility] [place] [facility] [address] [id number] [place] [address] Feb, [facility] [place] [facility] [address] [id number] [place] [address] Feb, [facility] [place] [facility] [address] [id number] [place] [address] Feb, [facility] [place] [facility] [address] [id number] [place] [address] 29 Jan, 2011 [facility] [place] [facility] [address] [id number] [place] [address] 10 Jan, 2011 [facility] [place] [facility] [address] [id number] [place] [address] Jan, [facility] [address] [facility] [id number] [place] [address] Dec, [facility] [address] [facility] [id number] [place] [address] Dec, [facility] [address] [facility] [id number] [place] [address] Nov, [facility] [address] [facility] [id number] [place] [address] Oct, [facility] [address] [facility] [id number] [place] [address] Oct, [facility] [address] [facility] [id number] [place] [address] Oct, [facility] [id number] [address] Sep, [facility] [address] [id number] [place] [address] Apr, [facility] [address] [facility] [id number] [place] [address] Feb, [facility] [address] [facility] [id number] [place] [address] Jan, IMMUNIZATIONS No Known Immunizations SOCIAL HISTORY Never Assessed REASON FOR VISIT Progress Update PLAN OF CARE VITAL SIGNS MEDICATIONS Unknown [...] 2/2 Benzos OD, pneumonia MRSA, [facility]RA, Hypokalemia-- [facility] 12/20/2015 Hospitalization History COPD exacerbation, Asthma-[facility] 09/21/16 Hospitalization History COPD-[facility] 12/30/2016 Hospitalization History [facility] for inpatient-last around 2007 or so. Hospitalization History [facility] for COPD x2 Mar 2017 Hospitalization History Upper GI bleed at apr 2017 Hospitalization History [facility]- COPD Exacerbation, diarrhea 05/23/2017 Hospitalization History COPD exacerbation-[facility] 06/13/17 Hospitalization History [facility] 09/09/2017
--- OUTSIDE RECORDS SUMMARY | 2017-11-19 12:31 | XMS REPORT ---
Author Author ALIZA CARTER [facility] Address [address] [place] [address] Care Team Providers [employer] Name Role Phone ALIZA CARTER Unavailable PROBLEMS Type Condition ICD9-CM Code IUZ81-VE Code Onset Dates Condition Status SNOMED Code Problem Generalized anxiety disorder F41.1 Active 99093828 Problem Migraine without aura and without status migrainosus, not intractable G43.009 Active 746259957 Problem Other emphysema J43.8 Active 20860649 Problem Anxiety disorder, unspecified F41.9 Active 582029738 Problem Chronic obstructive pulmonary disease with acute exacerbation J44.1 Active 480389607 Problem Methamphetamine use disorder, moderate, 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 Active 44233776 Problem Chronic bronchitis, unspecified chronic bronchitis type J42 Active 91831580 Problem Intractable cyclical vomiting with nausea G43.A1 Active 26593053 Problem Diabetes E11.9 Active 636289598 Problem 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 Active Problem Tobacco abuse Z72.0 Active 87491681 Problem Examination of eyes and vision V72.0 Active 436090596 Problem Memory loss R41.3 Active 56359888 Problem Chronic constipation K59.09 Active 778335147 Problem TMJ (sprain of temporomandibular joint) S03.4XXA Active 79619050 Problem Bipolar disorder, unspecified F31.9 Active 65271478 Problem Migraine G43.909 Active 22008233 Problem Bipolar disorder with depression F31.30 Active 57350821 ALLERGIES No Information ENCOUNTERS Encounter Location Date Diagnosis [facility] [address] [facility] [id number] [address] Sep, [facility] [address] [facility] [id number], [place] [address] Sep, Acute congestive heart failure, unspecified heart failure type I50.9 and Anxiety disorder, unspecified F41.9 [facility] [address] [address] Sep, Heart failure, unspecified HF chronicity, unspecified heart failure type I50.9 [facility] [address] [address] Sep, [facility] [address] [address] Aug, Chronic obstructive pulmonary disease with acute exacerbation J44.1 [facility] [address] [address] Aug, [facility] [address] [address] Aug, [facility] [address] [address] July, [facility] [address] [address] July, [facility] [address] [address] July, Diabetes E11.9 and Chronic obstructive pulmonary disease with acute exacerbation J44.1 [facility] [address] [address] Jun, Chronic obstructive pulmonary disease with acute exacerbation J44.1 ; Diabetes E11.9 and Tobacco abuse Z72.0 [facility] [address] [address] Jun, [facility] [address], [place] [address] Jun, [facility] [address] [address] 3[address] May, [facility] [address] [address] May, [facility] [id number] [place] [address] 21567 -8466 17 May, 2017 [facility] [id number] [place] [address] 44971- 3772 16 May, 2017 [facility] [id number] [place] [address] 89109- 9070 15 May, 2017 [facility] [id number] [place] [address] 26551- 9477 14 May, 2017 Diarrhea, unspecified type R19.7 and Intractable cyclical vomiting with nausea G43.A1 [facility] [id number] [place] [address] 83209- 8993 12 May, 2017 [facility] [id number] [place] [address] 80356- 3429 05 May, 2017 [facility] [id number] [place] [address] 95013- 3670 28 Apr, 2017 COPD exacerbation J44.1 ; Esophageal candidiasis B37.81 ; Other acute gastritis with hemorrhage K29.01 and Acute posthemorrhagic anemia D62 [facility] [id number] [place] [address] 00176- 0865 Apr, Viral illness B34.9 and COPD exacerbation J44.1 [facility] [id number] [place] [address] 90046 -3487 Apr, Shortness of breath R06.02 and Pneumonia of both lower lobes due to infectious organism J18.9 [facility] [id number] [place] [address] 75968 -3220 Mar, COPD with acute exacerbation J44.1 [facility] [address] [address]43- 9466 Mar, Chronic obstructive pulmonary disease with acute exacerbation J44.1 and Diabetes E11.9 [facility] [id number] [place] [address] 77977- 9618 Mar, [facility] [address] [address] Mar, [facility] [id number] [place] [address] 29173 -5413 Mar, COPD exacerbation J44.1 [facility] [id number] [place] [address] 89296- 9081 Mar, [facility] [id number] [place] [address] 80147- 8379 Mar, Migraine G43.909 ; Hypokalemia E87.6 and Type 2 diabetes mellitus without complications E11.9 [facility] [id number] [place] [address] 68114- 7659 Feb, [facility] [id number] [place] [address] 59613- 4978 Feb, [facility] [id number] [place] [address] 98607- 1850 Feb, Methamphetamine use disorder, moderate, 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 ; Major depressive disorder, recurrent, moderate F33.1 ; Anxiety disorder, unspecified F41.9 and Tobacco abuse Z72.0 [facility] [address] [place] [address] 65796- 5610 30 Jan, 2017 Major depressive disorder, recurrent, moderate F33.1 [facility] [id number] [place] [address] 08605- 3312 16 Jan, 2017 [facility] [id number] [place] [address] 20635- 6081 Jan, [facility] [id number] [place] [address] 71982- 6154 Jan, Major depressive disorder, recurrent, moderate F33.1 [facility] [address] [place] [address] 53246- 8504 Jan, Major depressive disorder, recurrent, moderate F33.1 ; Anxiety disorder, unspecified F41.9 ; Methamphetamine use disorder, moderate, 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 and Tobacco abuse Z72.0 [facility] [id number] [place] [address] 36784- 2587 Jan, [facility] [address] 86089- 5296 Jan, Chronic obstructive pulmonary disease with acute exacerbation J44.1 and Diabetes E11.9 [facility] [address] 20994- 2915 Jan, [facility] [address] 99862- 7553 Jan, [facility] [address] 45741- 9256 Dec, Acute respiratory failure with hypoxia J96.01 ; Chronic bronchitis, unspecified chronic bronchitis type J42 and Tobacco use Z72.0 [facility] [address] 75140- 0666 Dec, [facility] [address] [id number] Nov, Dental caries K02.9 and Dental examination Z01.20 [facility] [address] 07376- 7993 Nov, Major depressive disorder, recurrent, moderate F33.1 ; Anxiety disorder, unspecified F41.9 and Other 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 [facility] [address] [id number] Oct, Dental examination Z01.20 [facility] [address] 99402- 3851 Oct, [facility] [address] 07457- 1099 Oct, Diabetes E11.9 and Thrush B37.0 [facility] [address] 01450- 8963 Oct, [facility] [address] [address]- 2641 Oct, [facility] [id number] [place] [address] 73088- 4242 Oct, [facility] [address] [place] [address] 93247- 7838 Sep, Major depressive disorder, recurrent, moderate F33.1 ; Anxiety disorder, unspecified F41.9 and Bipolar disorder, unspecified F31.9 [facility] [address] [place] [address] 09179- 4952 Sep, Acute exacerbation of chronic obstructive pulmonary disease (COPD) J44.1 and Migraine G43.909 [facility] [id number] [place] [address] 06237- 4003 Sep, [facility] [id number] [place] [address] [id number] Sep, [facility] [id number] [place] [address] 26952- 4106 Sep, Acute exacerbation of chronic obstructive pulmonary disease (COPD) J44.1 [facility] [address] [address] Sep, Acute exacerbation of chronic obstructive pulmonary disease (COPD) J44.1 [facility] [address], [place] [address]- 6267 Aug, [facility] [id number] [place] [address] 93961- 2354 Aug, Major depressive disorder, recurrent, moderate F33.1 ; Anxiety disorder, unspecified F41.9 and 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 [facility] [address] [address]- 8485 Aug, Wheezing R06.2 ; Non morbid obesity due to excess calories E66.09 ; Migraine without aura and without status migrainosus, not intractable G43.009 and Tobacco abuse Z72.0 [facility] [id number] [place] [address] [id number] 14 Aug, 2016 Encounter for dental examination Z01.20 [facility] [id number] [place] [address] 62646- 8975 02 Aug, 2016 Major depressive disorder, recurrent, moderate F33.1 ; Anxiety disorder, unspecified F41.9 and 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 [facility] [id number] [place] [address] 98158- 6305 July, [facility] [address] 56406- 6478 July, [facility] [address] 51998- 7726 July, [facility] [address] 44665- 9399 July, Diabetes E11.9 [facility] [id number] [place] [address] 33620- 6837 Jun, Major depressive disorder, recurrent, moderate F33.1 [facility] [id number] [place] [address] 07115- 6624 Jun, Major depressive disorder, recurrent, moderate F33.1 ; Other 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 ; Generalized anxiety disorder F41.1 and Bipolar disorder, unspecified F31.9 [facility] [id number] [place] [address] 51091- 7185 Jun, Diabetes E11.9 ; Migraine G43.909 ; Thrush B37.0 and Wheezing R06.2 [facility] [address] [place] [address] [id number] 24 Jun, 2016 Dental examination Z01.20 [facility] [id number] [place] [address] 83192- 3788 21 Jun, 2016 [facility] [id number] [place] [address] 97378- 2583 Jun, Major depressive disorder, recurrent, moderate F33.1 ; Anxiety disorder, unspecified F41.9 and Other 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 [facility] [address] [place] [address] 59465- 4577 Jun, [facility] [address] 793116- 3608 Jun, Wheezing R06.2 [facility] [id number] [place] [address] [id number] Jun, Dental caries K02.9 [facility] [id number] [place] [address] 800617- 0567 Jun, Major depressive disorder, recurrent, moderate F33.1 ; Anxiety disorder, unspecified F41.9 and 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 [facility] [id number] [place] [address] 39386- 2272 Jun, RLQ abdominal pain R10.31 ; Diabetes E11.9 ; Obesity, unspecified obesity severity, unspecified obesity type E66.9 ; Wheezing R06.2 and Abnormal urinalysis R82.90 [facility] [address] [place] [address] 47659- 9048 May, [facility] [id number] [place] [address] 28805- 1081 May, Well woman exam Z01.419 ; Breast cancer screening Z12.39 ; Cervical cancer screening Z12.4 ; Urinary frequency R35.0 ; Edema, unspecified type R60.9 and Chronic constipation K59.09 [facility] [id number] [place] [address] May, Major depressive disorder, recurrent, moderate F33.1 ; Anxiety disorder, unspecified F41.9 and Other stimulant dependence with unspecified stimulant-induced disorder F15.29 [facility] [id number] [id number] 07 May, 2016 Dental examination Z01.20 [facility] [address], [place] [address]- 9906 May, [facility] [address], [place] [address]- 0640 May, [facility] [address] [place] [address] 82034- 3385 May, Chronic constipation K59.09 [facility] [id number] [place] [address] 24340- 7090 Apr, [facility] [address] [place] [address] 16585- 9162 Apr, Major depressive disorder, recurrent, moderate F33.1 ; Anxiety disorder, unspecified F41.9 and Other 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 [facility] [address], [place] [address]- 3606 Apr, [facility] [address] [place] [address] 38201- 7786 Mar, Major depressive disorder, recurrent, moderate F33.1 [facility] [address], [place] [address]- 0999 Mar, Major depressive disorder, recurrent, moderate F33.1 ; Generalized anxiety disorder F41.1 and Bipolar I disorder, most recent episode depressed with anxious distress F31.30 [facility] [address], [place] [address]- 3081 Mar, Diabetes E11.9 ; Non morbid obesity due to excess calories E66.09 ; Breast cancer screening Z12.39 and Encounter for immunization Z23 [facility] [address] [place] [address] 25944- 8599 Mar, Major depressive disorder, recurrent, moderate F33.1 ; Anxiety disorder, unspecified F41.9 and Other stimulant dependence with unspecified stimulant-induced disorder F15.29 [facility] [address] [place] [address] 23540- 7878 Mar, [facility] [id number] [place] [address] 87793- 0731 Feb, Major depressive disorder, recurrent, moderate F33.1 ; Anxiety disorder, unspecified F41.9 and 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 [facility] [id number] [place] [address] 46630- 8305 Feb, [facility] [id number] [place] [address] 37511- 2014 Feb, [facility] [id number] [place] [address] 54973- 9856 Jan, Major depressive disorder, recurrent, moderate F33.1 ; Generalized anxiety disorder F41.1 and Bipolar disorder, current episode depressed, severe, without psychotic features F31.4 [facility] [address] [place] [address] 25926- 4999 18 Jan, 2016 Major depressive disorder, recurrent, moderate F33.1 ; Anxiety disorder, unspecified F41.9 and 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 [facility] [address] [place] [address] 05393- 5230 16 Jan, 2016 Bronchitis J40 [facility] [id number] [place] [address] 80505- 0513 15 Jan, 2016 [facility] [id number] [place] [address] 34742- 1210 Jan, [facility] [id number] [place] [address] 22803- 4038 Jan, Elbow injury, right, initial encounter S59.901A ; Multiple contusions T14.8 and Cervical strain, acute, initial encounter S16.1XXA [facility] [id number] [place] [address] 29883- 8934 Dec, Major depressive disorder, recurrent, moderate F33.1 ; Generalized anxiety disorder F41.1 and Bipolar disorder with depression F31.30 [facility] [address], [place] [address]- 0778 Dec, [facility] [address] [facility] [id number] [address]- 8725 Dec, [facility] [address] [place] [address] 83240- 3142 Dec, [facility] [address] [facility] [id number] [address]- 9335 Dec, [facility] [address] [place] [address] 97264- 5000 Dec, Yeast infection B37.9 [facility] [address], [place] [address]- 7922 Dec, Pneumonia of both lungs due to methicillin resistant Staphylococcus aureus (MRSA), unspecified part of lung J15.212 and Benzodiazepine overdose, accidental or unintentional, subsequent encounter T42.4X1D [facility] [address], [place] [address]- 4808 Dec, [facility] [address], [place] [address]- 6275 Dec, [facility] [address], [place] [address]- 3663 Dec, Knee pain, left M25.562 and Edema, unspecified type R60.9 [facility] [address], [place] [address]- 5398 Dec, [facility] [address] [place] [address] 89018- 4686 Dec, Anxiety disorder, unspecified F41.9 and Bipolar disorder, unspecified F31.9 [facility] [address] [address]- 2874 Nov, Major depressive disorder, recurrent, moderate F33.1 ; Anxiety disorder, unspecified F41.9 and Other stimulant dependence with unspecified stimulant-induced disorder 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 [facility] [id number] [place] [address] 51805- 1779 Nov, [facility] [id number] [place] [address] 90002- 0993 Nov, Migraine without aura and without status migrainosus, not intractable G43.009 [facility] [id number] [place] [address] 65491- 9655 Nov, Migraine G43.909 [facility] [id number] [place] [address] 46302- 2976 Nov, [facility] [id number] [place] [address] 72709- 4655 Nov, Major depressive disorder, recurrent, moderate F33.1 ; Anxiety disorder, unspecified F41.9 and 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 [facility] [id number] [place] [address] 93600- 7182 Oct, Chronic constipation K59.09 and Obesity, unspecified obesity severity, unspecified obesity type E66.9 [facility] [id number] [place] [address] 28026- 9029 Oct, Obesity, unspecified obesity severity, unspecified obesity type E66.9 ; Chronic constipation K59.09 and Anxiety disorder, unspecified F41.9 [facility] [address] [place] [address] 39357- 4546 Oct, [facility] [id number] [place] [address] 96841- 4192 Sep, Diabetes E11.9 ; Edema, unspecified type R60.9 ; Varicose vein of leg I83.90 and Obesity, unspecified obesity severity, unspecified obesity type E66.9 [facility] [id number] [place] [address] 93363- 1259 Sep, Edema, unspecified type R60.9 ; Diabetes E11.9 and Knee pain , left M25.562 [facility] [id number] [place] [address] 26516- 9243 Sep, [facility] [id number] [place] [address] 69545- 8501 Sep, [facility] [id number] [place] [address] 28479- 7678 Sep, Major depressive disorder, recurrent, moderate F33.1 ; Generalized anxiety disorder F41.1 and Bipolar disorder, unspecified F31.9 [facility] [id number] [place] [address] 29989- 7747 Aug, Chondromalacia of left knee M94.262 [facility] [id number] [place] [address] 05341- 9316 Aug, Major depressive disorder, recurrent, moderate F33.1 ; Anxiety disorder, unspecified F41.9 and 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 [facility] [id number] [place] [address] 56966- 9404 Aug, [facility] [id number] [place] [address] 09310- 1291 Aug, Osteoarthritis of left knee M17.9 [facility] [id number] [place] [address] 36235- 8269 Aug, [facility] [id number] [place] [address] 37842- 9380 July, Major depressive disorder, recurrent, moderate F33.1 ; Anxiety disorder, unspecified F41.9 and 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 [facility] [id number] [place] [address] 69795- 1450 July, [facility] [id number] [place] [address] 31169- 5485 July, Chronic constipation K59.09 [facility] [id number] [place] [address] 02390- 4416 Jun, [facility] [id number] [place] [address] 77968- 7862 15 Jun, 2015 [facility] [id number] [place] [address] 61692- 0271 14 Jun, 2015 Osteoarthritis of left knee M17.9 [facility] [id number] [place] [address] 83560- 3604 Jun, [facility] [id number] [place] [address] 82152- 2577 13 Jun, 2015 Generalized anxiety disorder F41.1 ; Bipolar disorder, unspecified F31.9 and Major depressive disorder, recurrent, moderate F33.1 [facility] [id number] [place] [address] 12651- 3138 Jun, Migraine G43.909 [facility] [id number] [place] [address] 41391- 9208 07 Jun, 2015 Left knee pain M25.562 ; Chronic constipation K59.09 ; Dry mouth R68.2 ; Yeast vaginitis B37.3 and Memory loss R41.3 [facility] [id number] [place] [address] 68480- 0141 Jun, [facility] [id number] [place] [address] 09394- 3581 30 May, 2015 [facility] [id number] [place] [address] 62548- 8773 May, [facility] [id number] [place] [address] 48001- 6854 May, [facility] [id number] [place] [address] 91602- 3791 May, [facility] [id number] [place] [address] 38283- 7340 May, Acute bronchitis with COPD J44.0 ; Knee pain, left M25.562 and Encounter for tobacco use cessation counseling Z71.6 [facility] [address] [address]- [address]27 May, [facility] [id number] [place] [address] 26429- 6592 Apr, Diabetes E11.9 ; TMJ (sprain of temporomandibular joint) S03.4XXA ; Tobacco abuse Z72.0 ; Migraine G43.909 and Anxiety F41.9 [facility] [id number] [place] [address] 15951- 5301 Apr, Generalized anxiety disorder F41.1 and Bipolar disorder, unspecified F31.9 [facility] [id number] [place] [address] 84184- 4077 Apr, Major depressive disorder, recurrent, moderate F33.1 ; Anxiety disorder, unspecified F41.9 and 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 [facility] [id number] [place] [address] 33853- 8976 Apr, [facility] [id number] [place] [address] 98243- 6454 Mar, [facility] [id number] [place] [address] 39874- 3201 Feb, [facility] [id number] [place] [address] 02814- 0503 14 Feb, 2015 Major depressive disorder, recurrent, moderate F33.1 ; Anxiety disorder, unspecified F41.9 and 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 [facility] [id number] [place] [address] 89664- 9167 Feb, [facility] [id number] [place] [address] 14092- 5594 Feb, Generalized anxiety disorder F41.1 and Bipolar disorder, unspecified F31.9 [facility] [id number] [address] 4114 Jan, [facility] [id number] [place] [address] 33988- 4598 Jan, [facility] [id number] [place] [address] 92100- 5426 Jan, Bipolar disorder, unspecified F31.9 and Generalized anxiety disorder F41.1 [facility] [id number] [place] [address] 81212- 7288 Dec, [facility] [address] 52694- 4214 Dec, Bipolar disorder, unspecified F31.9 and Generalized anxiety disorder F41.1 [facility] [id number] [place] [address] 87741- 0315 Dec, Generalized anxiety disorder F41.1 and Major depressive disorder, recurrent, moderate F33.1 [facility] [id number] [place] [address] 48863- 9447 Oct, Headache 784.0 ; Cough 786.2 ; Vomiting and diarrhea 787.03 and Dysuria 788.1 [facility] [id number] [place] [address] 79426- 6583 Aug, [facility] [id number] [place] [address] 97896- 1770 Aug, Headache 784.0 and Shortness of breath 786.05 [facility] [id number] [place] [address] 76709- 0485 Aug, [facility] [id number] [place] [address] 76043- 1409 Aug, Migraine 346.90 [facility] [id number] [place] [address] 17916- 3932 Jun, [facility] [address] [place] [address]- 2035 13 Jun, 2014 [facility] [place] [facility] [address] [id number] [place] [address]- 7393 May, [facility] [place] [facility] [address] [id number] [place] 9450 May, [facility] [place] [facility] [address] [id number] [place] [address]- 8077 May, [facility] [place] [facility] [address] [id number] [place] [address]- 0526 May, [facility] [place] [facility] [address] [id number] [place] [address]- 4986 May, [facility] [place] [facility] [address] [id number] [place] [address]- 1370 May, [facility] [place] [facility] [address] [id number] [place] [address]- 4739 Apr, [facility] [place] [facility] [address] [id number] [place] [address]- 6437 Apr, [facility] [place] [facility] [address] [id number] [place] [address]- 8821 Apr, [facility] [place] [facility] [address] [facility] [id number] [place] [address]- 2796 Apr, [facility] [place] [facility] [address] [id number] [place] [address]- 5224 Apr, [facility] [place] [facility] [address] [id number] [place] [address]- 6818 Mar, [facility] [place] [facility] [address] [id number] [place] [address]- 1822 Mar, [facility] [place] [facility] [address] [id number] [place] [address]- 7310 Mar, [facility] [place] [facility] [address] [id number] [place] [address]- 4269 Mar, [facility] [place] [facility] [address] [id number] [place] 5777 Feb, [facility] [place] [facility] [address] [id number] [place] [address]- 7681 Feb, [facility] [place] [facility] [address] [id number] [place] 0303 Feb, [facility] [place] [facility] [address] [id number] [place] [address]- 4500 Feb, [facility] [place] [facility] [address] [id number] [place] 0793 Feb, [facility] [place] [facility] [address] [id number] [place] [address]- 2145 Feb, [facility] [place] [facility] [address] [id number] [place] [address]- 0600 Feb, [facility] [place] [facility] [address] [id number] [place] [address]- 5056 Feb, [facility] [place] [facility] [address] [id number] [place] [address]- 8081 Feb, [facility] [place] [facility] [address] [id number] [place] [address]- 2188 Feb, [facility] [place] [facility] [address] [id number] [place] [address]- 1108 Feb, [facility] [place] [facility] [address] [id number] [place] [address]- 4551 Feb, [facility] [place] [facility] [address] [id number] [place] [address]- 8612 Jan, [facility] [place] [facility] [address] [id number] [place] 7665 Jan, [facility] [place] [facility] [address] [id number] [place] [address]- 6417 Dec, [facility] [place] [facility] [address] [id number] [place] [address]- 5873 Dec, [facility] [place] [facility] [address] [id number] [place] [address]- 3813 Dec, [facility] [place] [facility] [address] [id number] [place] 8212 Dec, [facility] [place] [facility] [address] [id number] [place] [address]- 6509 Dec, [facility] [place] [facility] [address] [id number] [place] [address]- 6609 Dec, [facility] [place] [facility] [address] [id number] [place] [address]- 1716 Sep, [facility] [place] [facility] [address] [id number] [place] [address]- 4457 Sep, [facility] [place] [facility] [address] [id number] [place] [address]- 6364 Sep, [facility] [place] [facility] [address] [id number] [place] [address]- 7814 Sep, [facility] [place] [facility] [address] [id number] [place] [address]- 1512 Sep, [facility] [place] [facility] [address] [id number] [place] [address]- 4056 Sep, [facility] [place] [facility] [address] [id number] [place] [address]- 4710 Sep, [facility] [place] [facility] [address] [id number] [place] [address]- 9552 Sep, [facility] [place] [facility] [address] [id number] [place] [address]- 6108 Sep, [facility] [place] [facility] [address] [id number] [place] [address]- 3456 Sep, [facility] [place] [facility] [address] [id number] [place] [address]- 9124 Aug, [facility] [place] [facility] [address] [id number] [place] [address]- 3600 Aug, [facility] [place] [facility] [address] [id number] [place] [address]- 4031 Aug, [facility] [place] [facility] [address] [id number] [place] [address]- 0533 Aug, [facility] [place] [facility] [address] [id number] [place] [address]- 5962 Aug, [facility] [place] [facility] [address] [id number] [place] [address]- 3914 Aug, [facility] [place] [facility] [address] [id number] [place] [address]- 7438 Aug, [facility] [place] [facility] [address] [id number] [place] [address]- 8185 Aug, [facility] [place] [facility] [address] [id number] [place] [address]- 9900 Aug, [facility] [place] [facility] [address] [id number] [place] [address]- 5935 Aug, [facility] [place] [facility] [address] [id number] [place] [address]- 0186 Aug, [facility] [place] [facility] [address] [id number] [place] [address]- 9495 Aug, [facility] [place] [facility] [address] [id number] [place] [address]- 1695 Aug, [facility] [place] [facility] [address] [id number] [place] [address]- 7636 July, [facility] [place] [facility] [address] [id number] [place] [address]- 8025 July, [facility] [place] [facility] [address] [id number] [place] [address]- 1037 July, [facility] [place] [facility] [address] [id number] [place] [address]- 1371 July, [facility] [place] [facility] [address] [id number] [place] [address]- 0742 July, [facility] [place] [facility] [address] [id number] [place] [address]- 7683 July, [facility] [place] [facility] [address] [id number] [place] [address]- 7891 July, [facility] [place] [facility] [address] [id number] [place] [address]- 0038 Jun, [facility] [place] [facility] [address] [id number] [place] [address]- 2108 Jun, [facility] [place] [facility] [address] [id number] [place] [address]- 4225 Jun, [facility] [place] [facility] [address] [id number] [place] [address]- 8177 Jun, [facility] [place] [facility] [address] [id number] [place] [address]- 3533 Jun, [facility] [place] [facility] [address] [id number] [place] [address]- 0450 Jun, [facility] [place] [facility] [address] [id number] [place] [address]- 7511 Jun, [facility] [place] [facility] [address] [id number] [place] [address]- 5126 17 May, 2013 [facility] [place] [facility] [address] [id number] [place] [address]- 0958 17 May, 2013 [facility] [place] [facility] [address] [id number] [place] [address]- 4821 14 May, 2013 [facility] [place] [facility] [address] [id number] [place] [address]- 4198 14 May, 2013 [facility] [place] [facility] [address] [id number] [place] [address]- 1892 13 May, 2013 [facility] [place] [facility] [address] [id number] [place] [address]- 2229 13 May, 2013 [facility] [place] [facility] [address] [id number] [place] [address]- 2094 10 May, 2013 [facility] [place] [facility] [address] [id number] [place] [address]- 2325 10 May, 2013 [facility] [place] [facility] [address] [id number] [place] [address]- 7547 07 May, 2013 [facility] [place] [facility] [address] [id number] [place] [address]- 6306 26 Apr, 2013 [facility] [place] [facility] [address] [id number] [place] [address]- 0584 Apr, [facility] [place] [facility] [address] [id number] [place] [address]- 4485 18 Apr, 2013 [facility] [place] [facility] [address] [id number] [place] [address]- 6589 15 Apr, 2013 [facility] [place] [facility] [address] [id number] [place] [address]- 6550 15 Apr, 2013 [facility] [place] [facility] [address] [id number] [place] [address]- 1207 Apr, [facility] [place] [facility] [address] [facility] [id number] [place] [address]- 8187 05 Apr, 2013 [facility] [place] [facility] [address] [facility] [id number] [place] [address]- 7377 05 Apr, 2013 [facility] [place] [facility] [address] [id number] [place] [address]- 3010 05 Apr, 2013 [facility] [place] [facility] [address] [id number] [place] [address]- 4077 05 Apr, 2013 [facility] [place] [facility] [address] [facility] [id number] [place] [address]- 4038 Mar, [facility] [place] [facility] [address] [facility] [id number] [place] [address]- 8117 Mar, [facility] [place] [facility] [address] [id number] [place] [address]- 8312 Mar, [facility] [place] [facility] [address] [id number] [place] [address]- 6157 Mar, [facility] [place] [facility] [address] [id number] [place] [address]- 7381 Mar, [facility] [place] [facility] [address] [id number] [place] [address]- 9473 Mar, [facility] [place] [facility] [address] [id number] [place] [address]- 1836 Mar, [facility] [place] [facility] [address] [id number] [place] [address]- 5069 Mar, [facility] [place] [facility] [address] [id number] [place] [address]- 7873 Feb, [facility] [place] [facility] [address] [id number] [place] [address]- 6214 Feb, [facility] [place] [facility] [address] [id number] [place] [address]- 5080 Jan, [facility] [place] [facility] [address] [id number] [place] [address]- 7527 18 Jan, 2013 [facility] [place] [facility] [address] [id number] [address]- 5092 15 Jan, 2013 [facility] [place] [facility] [address] [id number] [address]- 1788 15 Jan, 2013 [facility] [place] [facility] [address] [id number] [place] [address]- 5870 Jan, [facility] [place] [facility] [address] [id number] [address]- 0638 Jan, [facility] [place] [facility] [address] [id number], [place] [address]- 7958 05 Jan, 2013 [facility] [place] [facility] [address] [id number] [place] [address]- 8234 05 Jan, 2013 [facility] [place] [facility] [address] [id number] [place] [address]- 2356 Dec, [facility] [place] [facility] [address] [id number] [place] [address]- 1856 Dec, [facility] [place] [facility] [address] [id number] [place] [address]- 8846 10 Dec, 2012 [facility] [place] [facility] [address] [id number] [place] [address] 2540 20 Nov, 2012 [facility] [place] [facility] [address] [id number] [place] [address]- 8288 13 Nov, 2012 [facility] [place] [facility] [address] [id number] [place] [address]- 4040 12 Nov, 2012 [facility] [place] [facility] [address] [id number] [place] [address]- 7464 09 Nov, 2012 [facility] [place] [facility] [address] [id number] [place] [address]- 6393 06 Nov, 2012 [facility] [place] [facility] [address] [id number] [place] [address]- 7526 Nov, [facility] [place] [facility] [address] [id number] [place] [address]- 4013 Oct, [facility] [place] [facility] [address] [id number] [place] [address]- 7431 Oct, [facility] [place] [facility] [address] [id number] [place] [address]- 2549 Sep, [facility] [place] [facility] [address] [id number] [place] [address]- 9717 Sep, [facility] [place] [facility] [address] [id number] [place] [address]- 2548 Sep, [facility] [place] [facility] [address] [id number] [place] 8884 Sep, [facility] [place] [facility] [address] [id number] [place] [address]- 1925 Sep, [facility] [address] [id number] [place] [address]- 4225 Sep, [facility] [address] [id number] [place] [address]- 2900 Sep, [facility] [address] [id number] [place] [address]- 9438 Aug, [facility] [address] [id number] [place] [address]- 8072 Aug, [facility] [address] [id number] [place] [address]- 9966 Aug, [facility] [address] [id number] [place] [address]- 2543 Aug, [facility] [address] [id number] [place] [address]- 1482 Aug, [facility] [address] [id number] [place] [address]- 4628 Aug, [facility] [address] [id number] [place] [address]- 1082 July, [facility] [address] [id number] [place] [address]- 4557 July, [facility] [address] [id number] [place] [address]- 4593 July, [facility] [place] [facility] [address] [id number] [place] [address]- 2607 July, [facility] [place] [facility] [address] [id number] [place] [address]- 9173 July, [facility] [place] [facility] [address] [id number] [place] [address]- 5737 July, [facility] [place] [facility] [address] [id number] [place] [address]- 3162 Jun, [facility] [address] [id number] [place] [address]- 4904 Jun, [facility] [address] [id number] [place] [address]- 2158 15 Jun, 2012 [facility] [address] [facility] [id number] [place] [address]- 9426 Jun, [facility] [address] [id number] [place] [address]- 4046 Jun, [facility] [address] [id number] [place] [address]- 4031 Jun, [facility] [address] [facility] [id number] [place] [address]- 0356 Jun, [facility] [address] [facility] [id number] [place] [address]- 4478 May, [facility] [place] [facility] [address] [id number][place] [address]- 5329 May, [facility] [address] [id number] [place] [address]- 2886 Apr, [facility] [address] [facility] [id number] [place] [address]- 1004 Apr, [facility] [address] [id number], [place] [address]- 8953 Apr, [facility] [place] [facility] [address] [id number], [place] [address]- 2719 Apr, [facility] [place] [facility] [address] [id number] [place] [address]- 7567 Apr, [facility] [place] [facility] [address] [id number], [place] [address]- 1520 08 Apr, 2012 [facility] [place] [facility] [address] [facility] [id number], [place] [address]- 7397 07 Apr, 2012 [facility] [place] [facility] [address] [id number] [place] [address]- 6751 07 Apr, 2012 [facility] [place] [facility] [address] [id number] [place] [address]- 8496 Apr, [facility] [place] [facility] [address] [id number] [place] [address]- 0986 Apr, [facility] [place] [facility] [address] [id number] [place] [address]- 0266 Apr, [facility] [place] [facility] [address] [id number] [place] [address] Mar, [facility] [place] [facility] [address] [id number] [place] [address] Mar, [facility] [place] [facility] [address] [id number] [place] [address] Mar, [facility] [address] [id number] [place] [address] Mar, [facility] [place] [facility] [address] [id number] [place] [address] Mar, [facility] [place] [facility] [address] [id number] [place] [address] Mar, [facility] [place] [facility] [address] [id number] [place] [address] Mar, [facility] [place] [facility] [address] [id number], [place] [address] Mar, [facility] [place] [facility] [address] [id number] [place] [address] Mar, [facility] [place] [facility] [address] [id number] [place] [address]- 477[address] Mar, [facility] [place] [facility] [address] [id number][place] [address] Mar, [facility] [place] [facility] [address] [id number] [place] [address] Mar, [facility] [address] [id number] [place] [address] Mar, [facility] [place] [facility] [address] [id number] [place] [address] Feb, [facility] [address] [id number] [place] [address] Feb, [facility] [place] [facility] [address] [id number] [place] [address]- [address] Feb, [facility] [address] [id number] [place] [address]- [address]783 Feb, [facility] [address] [id number] [place] [address] Feb, [facility] [address] [id number] [place] [address] Feb, [facility] [place] [facility] [address] [id number] [place] [address] 83[address] Feb, [facility] [place] [facility] [address] [id number] [place] [address]- [address] Feb, [facility] [place] [facility] [address] [id number] [place] [address]- [address] Feb, [facility] [place] [facility] [address] [id number] [place] [address] Feb, [facility] [place] [facility] [address] [id number] [place] [address] 06 Feb, 2012 [facility] [place] [facility] [address] [id number] [place] [address]- [address]40 05 Feb, 2012 [facility] [place] [facility] [address] [id number] [place] [address] 05 Feb, 2012 [facility] [place] [facility] [address] [facility] [id number] [place] [address] Feb, [facility] [place] [facility] [address] [id number] [place] [address] Feb, [facility] [place] [facility] [address] [id number] [place] [address]- [address] Jan, [facility] [place] [facility] [address] [id number] [place] [address]- [address] Jan, [facility] [place] [facility] [address] [id number] [place] [address]- [address] Jan, [facility] [place] [facility] [address] [id number] [place] [address]- [address] Jan, [facility] [place] [facility] [address] [id number] [place] [address]- [address] Dec, [facility] [place] [facility] [address] [id number] [place] [address]- 407[address] Dec, [facility] [place] [facility] [address] [id number] [place] [address]- 365[address] Dec, [facility] [place] [facility] [address] [id number] [place] [address]- [address] Dec, [facility] [place] [facility] [address] [id number] [place] [address]- [address] Dec, [facility] [place] [facility] [address] [facility] [id number] [place] [address] Dec, [facility] [place] [facility] [address] [id number] [place] [address]- [address] Dec, [facility] [place] [facility] [address] [id number] [place] [address]- [address] Dec, [facility] [place] [facility] [address] [id number] [place] [address]- [address] Dec, [facility] [place] [facility] [address] [id number] [place] [address]- 74[address] Dec, [facility] [place] [facility] [address] [id number] [place] [address]- [address] 03 Dec, 2011 [facility] [place] [facility] [address] [id number] [place] [address]- [address] 25 Sep, 2011 [facility] [place] [facility] [address] [id number] [place] [address]- [address] 24 Sep, 2011 [facility] [place] [facility] [address] [id number] [place] [address]- 9867 20 Sep, 2011 [facility] [place] [facility] [address] [id number] [place] [address]- [address] 19 Sep, 2011 [facility] [place] [facility] [address] [id number] [place] [address]- 3814 17 Sep, 2011 [facility] [place] [facility] [address] [id number] [place] [address]- 6614 16 Sep, 2011 [facility] [place] [facility] [address] [id number] [place] [address]- 9780 14 Sep, 2011 [facility] [place] [facility] [address] [id number] [place] [address]- 6664 13 Sep, 2011 [facility] [place] [facility] [address] [id number] [place] [address]- 3786 12 Sep, 2011 [facility] [place] [facility] [address] [id number] [place] [address]- [address] 07 Sep, 2011 [facility] [place] [facility] [address] [id number][place] [address] 06 Sep, 2011 [facility] [place] [facility] [address] [id number], [place] [address] 06 Sep, 2011 [facility] [place] [facility] [address] [id number] [place] [address]- [address] 05 Sep, 2011 [facility] [place] [facility] [address] [id number] [place] [address]- 384[address] 29 Oct, 2011 [facility] [place] [facility] [address] [id number] [place] [address] 29 Oct, 2011 [facility] [place] [facility] [address] [id number] [place] [address] Oct, [facility] [place] [facility] [address] [id number] [place] [address] Oct, [facility] [place] [facility] [address] [id number] [place] [address] Oct, [facility] [place] [facility] [address] [id number] [place] [address] Oct, [facility] [place] [facility] [address] [id number] [place] [address] Oct, [facility] [place] [facility] [address] [id number] [place] [address] Oct, [facility] [place] [facility] [address] [id number] [place] [address] Oct, [facility] [place] [facility] [address] [id number] [place] [address] Oct, [facility] [place] [facility] [address] [id number] [place] [address] Oct, [facility] [place] [facility] [address] [id number] [place] [address] Sep, [facility] [place] [facility] [address] [id number] [place] [address] Sep, [facility] [place] [facility] [address] [id number] [place] [address] Sep, [facility] [place] [facility] [address] [id number] [place] [address] Sep, [facility] [place] [facility] [address] [id number] [place] [address] Sep, [facility] [place] [facility] [address] [id number] [place] [address] Sep, [facility] [place] [facility] [address] [id number] [place] [address] Aug, [facility] [place] [facility] [address] [id number] [place] [address] July, [facility] [place] [facility] [address] [id number] [place] [address] July, [facility] [place] [facility] [address] [id number] [place] [address] Jun, [facility] [place] [facility] [address] [id number] [place] [address] Jun, [facility] [place] [facility] [address] [id number] [place] [address] Jun, [facility] [place] [facility] [address] [id number] [place] [address] Jun, [facility] [place] [facility] [address] [id number] [place] [address] Jun, [facility] [place] [facility] [address] [id number] [place] [address] Jun, [facility] [place] [facility] [address] [id number] [place] [address] Jun, [facility] [place] [facility] [address] [id number] [place] [address] Jun, [facility] [place] [facility] [address] [id number] [place] [address] Jun, [facility] [place] [facility] [address] [id number] [place] [address] Jun, [facility] [place] [facility] [address] [id number] [place] [address] Jun, [facility] [place] [facility] [address] [id number] [place] [address] May, [facility] [place] [facility] [address] [id number] [place] [address] 16 May, 2011 [facility] [place] [facility] [address] [id number] [place] [address] May, [facility] [address] [id number] [place] [address] May, [facility] [place] [facility] [address] [id number] [place] [address] Apr, [facility] [address] [id number] [place] [address]6 Apr, [facility] [place] [facility] [address] [id number] [place] [address] Apr, [facility] [address] [id number] [place] [address] 25[address] Apr, [facility] [place] [facility] [address] [id number] [place] [address] 45[address] Apr, [facility] [address] [id number] [place] [address] Apr, [facility] [place] [facility] [address] [id number] [place] [address] 8[address] Apr, [facility] [address] [id number] [place] [address] 39[address] Apr, [facility] [address] [facility] [id number] [place] [address] Mar, [facility] [address] [id number] [place] [address] 07[address] Mar, [facility] [place] [facility] [address] [id number] [place] [address] 2548 Mar, [facility] [place] [facility] [address] [id number] [place] [address] 4085 18 Mar, 2011 [facility] [place] [facility] [address] [id number] [place] [address] 17 Mar, 2011 [facility] [place] [facility] [address] [id number] [address] 13 Mar, 2011 [facility] [place] [facility] [address] [id number] [place] [address] 99[address] Mar, [facility] [address] [id number] [place] [address] Mar, [facility] [place] [facility] [address] [id number] [place] [address] Mar, [facility] [address] [id number] [place] [address] 4084 Mar, [facility] [address] [id number] [place] [address] 1414 Mar, [facility] [place] [facility] [address] [id number] [place] [address] 8184 Mar, [facility] [address] [id number] [place] [address] 24[address] Mar, [facility] [address] [id number] [place] [address] 0[address] Mar, [facility] [address] [id number] [place] [address] 88[address] Mar, [facility] [address] [id number] [place] [address] 29[address] Mar, [facility] [place] [facility] [address] [id number] [place] [address] Feb, [facility] [place] [facility] [address] [id number] [place] [address] 3580 Feb, [facility] [place] [facility] [address] [id number] [place] [address] 6166 Feb, [facility] [place] [facility] [address] [id number] [place] [address] 3340 29 Jan, 2011 [facility] [place] [facility] [address] [id number] [place] [address]- 2018 10 Jan, 2011 [facility] [place] [facility] [address] [id number][place] [address] Jan, [facility] [address] [facility] [id number][place] [address] Dec, [facility] [address] [facility] [id number][place] [address] 2546 Dec, [facility] [address] [facility] [id number], [place] [address] 2546 Nov, [facility] [address] [facility] [id number][place] [address] Oct, [facility] [address] [facility] [id number][place] [address]26 Oct, [facility] [address] [facility] [id number][place] [address] 9[address] Oct, [facility] [id number], [place] [address] Sep, [facility] [address] [facility] [id number][place] [address] Apr, [facility] [address] [facility] [id number][place] [address] Feb, [facility] [address] [facility] [id number][place] [address] Jan, IMMUNIZATIONS No Known Immunizations SOCIAL HISTORY Never Assessed REASON FOR VISIT Progress Report PLAN OF CARE VITAL SIGNS MEDICATIONS Unknown [...] 2/2 Benzos OD, pneumonia MRSA, MAYRA, Hypokalemia-- [facility] 12/20/2015 Hospitalization History COPD exacerbation, Asthma-[facility] 09/21/16 Hospitalization History COPD-[facility] 12/30/2016 Hospitalization History [facility] and [facility] for inpatient-last around 2007 or so. Hospitalization History [facility] for COPD x2 Mar 2017 Hospitalization History Upper GI bleed at apr 2017 Hospitalization History [facility], [place], operated by [facility]- COPD Exacerbation, diarrhea 05/23/2017 Hospitalization History COPD exacerbation-[facility] 06/13/17 Hospitalization History CH[facility] 09/09/2017
--- NOTE | 2017-11-19 12:32 | ED Respiratory ---
General Chief Complaint: Respiratory Problems Stated Complaint: TROUBLE BREATHING Source: patient, old records Exam Limitations: no limitations History of Present Illness Date Seen by Provider: Nov 19, 2017 Time Seen by Provider: 13:08 Initial Comments This 52-year-old woman with known COPD presents to the emergency room with difficulty breathing. She was seen at [facility] clinic yesterday with nausea, vomiting, and diarrhea. She was started on prednisone and Zofran. Today she seems to be in respiratory distress and very anxious. She has had some increased cough but no fever. She has some chest discomfort that is sometimes worse with inspiration. Patient has a prior positive methamphetamines screen but adamantly denies any drug or alcohol use recently. Timing/Duration: just prior to arrival Allergies and Home Medications Allergies Coded Allergies: buspirone (Verified Allergy, Mild, 05/02/17) Made"legs Shaky" amitriptyline (Verified Allergy, Unknown, 05/02/17) " MAKES ME DO WEIRD THINGS LIKE WALK IN MY SLEEP AND HAVE HALLUCINATIONS." Home Medications Albuterol Sulfate 1 Puff Puff, 2 PUFF IH Q4H PRN for SHORTNESS OF BREATH, ( Reported) Aspirin 81 Mg Tablet.dr, 81 MG PO DAILY, (Reported) Fluticasone/Salmeterol 1 Each Blst.w.dev, 1 PUFF IH BID, (Reported) Furosemide 20 Mg Tablet, 20 MG PO DAILY, (Reported) Glimepiride 1 Mg Tablet, 1 MG PO DAILY PRN for WHEN TAKING PREDNISONE, (Reported ) Ipratropium/Albuterol Sulfate 3 Ml Ampul.neb, 3 ML IH QID PRN for SHORTNESS OF BREATH, (Reported) Metoprolol Tartrate 25 Mg Tablet, 12.5 MG PO BID, (Reported) TAKES 1/2 (25MG) TABLET Sacubitril/Valsartan 1 Each Tablet, 1 TAB PO BID, (Reported) Tiotropium [place] 1 Inh Aerp, 1 CAP IH DAILY, (Reported) Patient Home Medication List Home Medication List Reviewed: Yes Review of Systems Review of Systems Constitutional: no symptoms reported EENTM: no symptoms reported Respiratory: see HPI Cardiovascular: see HPI Gastrointestinal: see HPI Genitourinary: no symptoms reported : No Musculoskeletal: no symptoms reported Skin: no symptoms reported Psychiatric/Neurological: No Symptoms Reported Hematologic/Lymphatic: No Symptoms Reported Immunological/Allergic: no symptoms reported Past Mditwce-Vjykni-Hrheuh Hx Patient Social History Alcohol Use: Denies Use Recreational Drug Use: No (4 YRS AGO) Drug of Choice: +IV METH past hx Smoking Status: Current Everyday Smoker Type Used: Cigarettes 2nd Hand Smoke Exposure: Yes Recent Hopitalizations: Yes Immunizations Up To Date Tetanus Booster (TDap): Unknown Date of Pneumonia Vaccine: Dec 08, 2011 Date of Influenza Vaccine: Dec 31, 2016 Seasonal Allergies Seasonal Allergies: No Past Medical History Surgeries: No Respiratory: Yes (O2 AT 2-3L/NC) Sleep Apnea, COPD Currently Using CPAP: No Currently Using BIPAP: Yes (PT. STATED) Cardiac: Yes (HAD HEART CATH. 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 Disorders: Denies [employer] History: Menopausal Sexually Transmitted Disease: No HIV/AIDS: No Genitourinary: No Gastrointestinal: Yes Ulcer Musculoskeletal: Yes (chronic shoulder and neck pain) Endocrine: Yes (DM- only while on steriods per pt) Diabetes, Non-Insulin dep HEENT: No Cancer: No Psychosocial: Yes Sleep Difficulties, Anxiety, Suicide Attempts, Bipolar, Depression Integumentary: No Blood Disorders: No Adverse Reaction/Blood Tranf: No Family Medical History Cancer 03 MOTHER, Onset:66 (LUNG ) 09 BROTHER (LUNG ) Congestive heart failure 03 FATHER Heart Disease, Cancer Physical Exam Vital Signs - First Documented 11/19/17 11/19/17 11:15 11:40 Temp 98.9 Pulse 82 Resp 24 B/P (MAP) 160/122 (135) Pulse Ox 99 O2 Delivery Nasal Cannula O2 Flow Rate 60.00 Capillary Refill : Height: 5'9.00" Weight: 206lbs. 0.0oz. 93.193392pj; 30.4 BMI Method:Stated General Appearance: WD/WN, moderate distress HEENT: PERRL/EOMI, normal ENT inspection Neck: normal inspection Respiratory: respiratory distress, decreased breath sounds, accessory muscle use, wheezing Cardiovascular: regular rate, rhythm, no murmur Gastrointestinal: non tender, soft Extremities: normal inspection, no pedal edema Neurologic/Psychiatric: food critic II-XII nml as tested, no motor/sensory deficits, alert, oriented x 3, other (anxious) Skin: normal color, warm/dry Progress/Results/Core Measures Suspected Sepsis SIRS Temperature: Pulse: 84 Respiratory Rate: 23 Laboratory Tests 11/19/17 11:02: White Blood Count 9.3 Blood Pressure 115 /78 Mean: Laboratory Tests 11/19/17 11:02: Creatinine 0.82, Platelet Count 287, Total Bilirubin 0.5 Results/Orders Lab Results Laboratory Tests Test 11/19/17 11:02 11/19/17 11:04 11/19/17 11:22 11/19/17 12:37 Range/Units White Blood Count 9.3 4.3-11.0 10^3/uL Red Blood Count 5.10 4.35-5.85 10^6/uL Hemoglobin 13.5 11.5-16.0 G/DL Hematocrit 41 35-52 % Mean Corpuscular Volume 80 80-99 FL Mean Corpuscular Hemoglobin 27 25-34 PG Mean Corpuscular Hemoglobin Concent 33 32-36 G/DL Red Cell Distribution Width 18.4 H 10.0-14.5 % Platelet Count 287 130-400 10^3/uL Mean Platelet Volume 10.5 H 7.4-10.4 FL Neutrophils (%) (Auto) 56 42-75 % Lymphocytes (%) (Auto) 34 12-44 % Monocytes (%) (Auto) 8 0-12 % Eosinophils (%) (Auto) 2 0-10 % Basophils (%) (Auto) 0 0-10 % Neutrophils # (Auto) 5.1 1.8-7.8 X 10^3 Lymphocytes # (Auto) 3.2 1.0-4.0 X 10^3 Monocytes # (Auto) 0.7 0.0-1.0 X 10^3 Eosinophils # (Auto) 0.2 0.0-0.3 10^3/uL Basophils # (Auto) 0.0 0.0-0.1 10^3/uL Sodium Level 139 135-145 MMOL/L Potassium Level 3.8 3.6-5.0 MMOL/L Chloride Level 107 98-107 MMOL/L Carbon Dioxide Level 24 21-32 MMOL/L Anion Gap 8 5-14 MMOL/L Blood Urea Nitrogen 10 7-18 MG/DL Creatinine 0.82 0.60-1.30 MG/DL Estimat Glomerular Filtration Rate > 60 BUN/Creatinine Ratio 12 Glucose Level 114 H 70-105 MG/DL Calcium Level 9.7 8.5-10.1 MG/DL Corrected Calcium 9.9 8.5-10.1 MG/DL Total Bilirubin 0.5 0.1-1.0 MG/DL Aspartate Amino Transf (AST/SGOT) 16 5-34 U/L Alanine Aminotransferase (ALT/SGPT) 14 0-55 U/L Alkaline Phosphatase 57 40-136 U/L C-Reactive Protein High Sensitivity 0.25 0.00-0.50 MG/DL Total Protein 5.9 L 6.4-8.2 GM/DL Albumin 3.7 3.2-4.5 GM/DL B-Type Natriuretic Peptide 104.1 H <100.0 PG/ML D-Dimer 0.46 0.00-0.49 UG/ML Troponin I < 0.30 <0.30 NG/ML Blood Gas Puncture Site RIGHT RADIAL Blood Gas Patient Temperature 97.8 Arterial Blood pH 7.56 H 7.37-7.43 Arterial Blood Partial Pressure CO2 23 L 35-45 MMHG Arterial Blood Partial Pressure O2 198 H 79-93 MMHG Arterial Blood HCO3 21 L 23-27 MMOL/L Arterial Blood Total CO2 21.2 21.0-31.0 MMOL/L Arterial Blood Oxygen Saturation 100 94-100 % Arterial Blood Base Excess -1.6 -2.5-2.5 MMOL/L Torsten Test POSITIVE Blood Gas Ventilator Setting NO Blood Gas Inspired Oxygen 45% BIPAP My Orders Orders - TYLOR DURAN MD Cbc With Automated Diff (11/19/17 11:33) Comprehensive Metabolic Panel (11/19/17 11:33) Hs C Reactive Protein (11/19/17 11:33) Saline Lock/Iv-Start (11/19/17 11:33) Monitor-Rhythm Ecg Trace Only (11/19/17 11:33) Albuterol Pre-Mix Nebs (Rt) (Proventil (11/19/17 11:33) Albuterol/Ipra Inhalation Soln (Duoneb I (11/19/17 11:45) Chest 1 View, Ap/Pa Only (11/19/17 11:33) Svn Small Volume Nebulizer (11/19/17 11:33) Svn Small Volume Nebulizer (11/19/17 11:33) Methylprednisolone Sod Succ (Solu-Medrol (11/19/17 11:45) Lorazepam Injection (Ativan Injection) (11/19/17 12:15) Ns Iv 1000 Ml (Sodium Chloride 0.9%) (11/19/17 12:16) Lorazepam Injection (Ativan Injection) (11/19/17 12:30) Arterial Blood Gas (11/19/17 12:32) Fibrin Degradation Products (11/19/17 12:32) Troponin I (11/19/17 12:32) Ekg Tracing (11/19/17 12:32) O2 (11/19/17 12:32) BNP (11/19/17 12:54) Medications Given in ED Current Medications Medications Dose Ordered Sig/Vladimir Route Start Time Stop Time Status Last Admin Dose Admin Albuterol/ Ipratropium 3 ml ONCE ONCE INH 11/19/17 11:45 11/19/17 11:46 DC 11/19/17 11:40 3 ML Lorazepam 0.5 mg ONCE ONCE IVP 11/19/17 12:30 11/19/17 12:31 DC 11/19/17 12:39 0.5 MG Lorazepam 1 mg ONCE ONCE IVP 11/19/17 12:15 11/19/17 14:03 DC 11/19/17 12:15 1 MG Methylprednisolone Sodium Succinate 125 mg ONCE ONCE IVP 11/19/17 11:45 11/19/17 11:46 DC 11/19/17 11:40 125 MG Sodium Chloride 1,000 ml @ 0 mls/hr Q0M ONCE IV 11/19/17 12:16 11/19/17 12:18 DC 11/19/17 12:25 0 MLS/HR Vital Signs/I&O 11/19/17 11/19/17 11/19/17 11:15 11:40 12:50 Temp 98.9 Pulse 82 84 85 Resp 24 23 18 B/P (MAP) 160/122 (135) 126/85 Pulse Ox 99 96 100 O2 Delivery Nasal Cannula NIV Bilevel O2 Flow Rate 60.00 Capillary Refill : Progress Note #1: Time: 12:29 Progress Note Patient received Solu-Medrol 125 mg and an hour-long nebulizer treatment with BiPAP. She still seems to subjectively be struggling to breathe. However, her tidal volumes on BiPAP or greater than 1000. She does seem to be moving air much better than she did on presentation. Air movement on auscultation is much improved. A trial off the BiPAP was performed. Patient had a dramatic drop in air movement and increased wheezing without the BiPAP. BiPAP was reapplied. We also tried giving Ativan 1 mg IV which did help some. Another 0.5 mg will be administered. Patient does describe some chest pain that is worse with breathing at times. An EKG, troponin, and d-dimer will be added to her workup. Progress Note #2: Progress Note ABG has the appearance of hyperventilation. The remainder of the workup was unremarkable. Case was discussed with Dr. Trivedi who gave BiPAP setting at recommendations which included turning down the FiO2 to 35 percent. Patient remained stable with high oxygen saturations. She was admitted to the ICU. ECG Initial ECG Impression Date: Nov 19, 2017 Initial ECG Impression Time: 12:42 Initial ECG Rate: 82 Initial ECG Rhythm: Normal Sinus Comment Normal sinus rhythm with no ST elevation or depression. Left axis deviation by automated read. No abnormal intervals Diagnostic Imaging Diagonstic Imaging: Xray Plain Films/CT/US/NM/MRI: chest Comments Chest x-ray viewed by me and report reviewed. See report below: NAME: [facility] REC#: [id number] PT STATUS: REG ER : 1965 PHYSICIAN: TYLOR DURAN MD ADMIT DATE: 11/19/17/ER Draft Date of Exam:11/19/17 CHEST 1 VIEW, AP/PA ONLY INDICATION: Difficulty breathing. Time of exam 12:02 PM Correlation is made with prior study from 09/08/2017. The heart is enlarged and stable. The lungs do show some hyperinflation. There is linear scarring or atelectasis left midlung. No infiltrates are seen. No effusion or pneumothorax is detected. IMPRESSION: COPD. No acute features detected. Dictated on workstation # [id number] Dict: 11/19/17 1210 Trans: 11/19/17 1212 [facility] [phone] Interpreted by: WILLIAM ZAVALA MD Departure Communication (Admissions) Time/Spoke to Admitting Phy: 13:04 Dr. Trivedi Time/Spoke to Consulting Phy: 13:00 Dr. Martinez Impression Primary Impression: COPD with exacerbation Additional Impressions: Atypical chest pain Anxiety Disposition: 09 ADMITTED INPATIENT Condition: Improved Admissions Decision to Admit Reason: Admit from ER (General) Decision to Admit/Date: Nov 19, 2017 Time/Decision to Admit Time: 13:10 Departure-Patient Inst. Referrals: [facility] [place] (PCP) Primary Care Physician ALIZA CARTER (Family) Primary Care Physician TYLOR DURAN MD Nov 19, 2017 12:32
--- OUTSIDE RECORDS SUMMARY | 2017-11-19 12:32 | XMS REPORT ---
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 Name Role Phone THOMAS WOLF Unavailable PROBLEMS Type Condition ICD9-CM Code BXR74-HE Code Onset Dates Condition Status SNOMED Code Problem Generalized anxiety disorder F41.1 Active 75198701 Problem Migraine without aura and without status migrainosus, not intractable G43.009 Active 339119700 Problem Other emphysema J43.8 Active 23315791 Problem Anxiety disorder, unspecified F41.9 Active 368283321 Problem Chronic obstructive pulmonary disease with acute exacerbation J44.1 Active 404139269 Problem Methamphetamine use disorder, moderate, 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 Active 68856789 Problem Chronic bronchitis, unspecified chronic bronchitis type J42 Active 90307642 Problem Intractable cyclical vomiting with nausea G43.A1 Active 80984810 Problem Diabetes E11.9 Active 619624071 Problem 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 Active Problem Tobacco abuse Z72.0 Active 89790161 Problem Examination of eyes and vision V72.0 Active 180759933 Problem Memory loss R41.3 Active 12049606 Problem Chronic constipation K59.09 Active 602729706 Problem TMJ (sprain of temporomandibular joint) S03.4XXA Active 93800530 Problem Bipolar disorder, unspecified F31.9 Active 35040674 Problem Migraine G43.909 Active 96423717 Problem Bipolar disorder with depression F31.30 Active 84165013 ALLERGIES No Information ENCOUNTERS Encounter Location Date Diagnosis [facility] [address], [place] [address] Sep, Acute congestive heart failure, unspecified heart failure type I50.9 and Anxiety disorder, unspecified F41.9 [facility] [id number] [address] Sep, Heart failure, unspecified HF chronicity, unspecified heart failure type I50.9 [facility] [address] [facility] [id number] [address] Sep, [facility] [address] [facility] [id number], [place] [address] Aug, Chronic obstructive pulmonary disease with acute exacerbation J44.1 [facility] [address] [facility] [id number] [address] Aug, [facility] [address] [facility] [id number], [place] [address] Aug, [facility] [address], [place] [address] July, [facility] [address], [place] [address] July, [facility] [address], [place] [address] July, Diabetes E11.9 and Chronic obstructive pulmonary disease with acute exacerbation J44.1 [facility] [address], [place] [address] Jun, Chronic obstructive pulmonary disease with acute exacerbation J44.1 ; Diabetes E11.9 and Tobacco abuse Z72.0 [facility] [address], [place] [address] Jun, [facility] [address], [place] [address] Jun, [facility] [address], [place] [address] May, [facility] [address], [place] [address] May, [facility] [address] [address] May, [facility] [id number] [address] 16 May, 2017 [facility] [id number] [place] [address]- [address] 15 May, 2017 [facility] [id number] [place] [address] 24925- 4575 14 May, 2017 Diarrhea, unspecified type R19.7 and Intractable cyclical vomiting with nausea G43.A1 [facility] [id number] [place] [address] 00650- 0199 12 May, 2017 [facility] [id number] [place] [address] 21381- 0550 05 May, 2017 [place] [id number] [place] [address] 27733- 0506 28 Apr, 2017 COPD exacerbation J44.1 ; Esophageal candidiasis B37.81 ; Other acute gastritis with hemorrhage K29.01 and Acute posthemorrhagic anemia D62 [place] [id number] [place] [address] 55619- 2254 21 Apr, 2017 Viral illness B34.9 and COPD exacerbation J44.1 [facility] [place] [id number] [place] [address] 61408 -2519 19 Apr, 2017 Shortness of breath R06.02 and Pneumonia of both lower lobes due to infectious organism J18.9 [facility] [id number] [place] [address] 17362 -4169 Mar, COPD with acute exacerbation J44.1 [facility] [id number] [place] [address] 68557- 7173 Mar, Chronic obstructive pulmonary disease with acute exacerbation J44.1 and Diabetes E11.9 [facility] [id number] [place] [address] 82899- 6553 Mar, [facility] [id number] [place] [address] 28936- 4888 Mar, [facility] [id number] [place] [address] 65504 -2461 Mar, COPD exacerbation J44.1 [place] [id number] [place] [address] 37689- 1151 09 Mar, 2017 [place] [id number] [place] [address] 45582- 3274 Mar, Migraine G43.909 ; Hypokalemia E87.6 and Type 2 diabetes mellitus without complications E11.9 [place] [id number] [place] [address] 58413- 2829 Feb, [place] [id number] [place] [address] 01932- 4460 Feb, [place] [id number] [place] [address] 44931- 5885 Feb, Methamphetamine use disorder, moderate, 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 ; Major depressive disorder, recurrent, moderate F33.1 ; Anxiety disorder, unspecified F41.9 and Tobacco abuse Z72.0 [place] [id number] [place] [address] 78794- 6514 30 Jan, 2017 Major depressive disorder, recurrent, moderate F33.1 [place] [id number] [place] [address] 26192- 2285 16 Jan, 2017 [place] [id number] [place] [address] 29618- 2099 Jan, [place] [id number] [place] [address] 14841- 3324 Jan, Major depressive disorder, recurrent, moderate F33.1 [place] [id number] [place] [address] 68731- 6928 Jan, Major depressive disorder, recurrent, moderate F33.1 ; Anxiety disorder, unspecified F41.9 ; Methamphetamine use disorder, moderate, 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 and Tobacco abuse Z72.0 [place] [id number] [place] [address] 58751- 0584 Jan, [facility] [address], [place] [address] 6[address] Jan, Chronic obstructive pulmonary disease with acute exacerbation J44.1 and Diabetes E11.9 [facility] [address], [place] [address] 4824 Jan, [facility] [id number] [place] [address] 02371- 5823 Jan, [facility] [id number] [place] [address] 19518- 4841 Dec, Acute respiratory failure with hypoxia J96.01 ; Chronic bronchitis, unspecified chronic bronchitis type J42 and Tobacco use Z72.0 [facility] [id number] [address] Dec, [facility] [id number] [place] [address] [id number] Nov, Dental caries K02.9 and Dental examination Z01.20 [facility] [address], [place] [address] Nov, Major depressive disorder, recurrent, moderate F33.1 ; Anxiety disorder, unspecified F41.9 and 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 [facility] [address] [address] Oct, Dental examination Z01.20 [facility] [address], [place] [address] 5[address] Oct, [facility] [address], [place] [address]- 6629 Oct, Diabetes E11.9 and Thrush B37.0 [facility] [address], [place] [address]- 8307 Oct, [facility] [id number] [place] [address] 94934- 7251 Oct, [facility] [id number] [place] [address] 54980- 0990 Oct, [facility] [address] [address]- 7[address] Sep, Major depressive disorder, recurrent, moderate F33.1 ; Anxiety disorder, unspecified F41.9 and Bipolar disorder, unspecified F31.9 [facility] [address] 80697- 6669 Sep, Acute exacerbation of chronic obstructive pulmonary disease (COPD) J44.1 and Migraine G43.909 [place] [address] 68918- 5296 Sep, [facility] [address] [id number] Sep, [facility] [address] 92275- 7777 Sep, Acute exacerbation of chronic obstructive pulmonary disease (COPD) J44.1 [facility] [id number] [place] [address] 20608 -9868 Sep, Acute exacerbation of chronic obstructive pulmonary disease (COPD) J44.1 [facility] [id number] [place] [address] 47637- 2255 Aug, [facility] [id number] [place] [address] 33219- 8506 Aug, Major depressive disorder, recurrent, moderate F33.1 ; Anxiety disorder, unspecified F41.9 and 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 [facility] [id number] [place] [address] 08499- 1992 Aug, Wheezing R06.2 ; Non morbid obesity due to excess calories E66.09 ; Migraine without aura and without status migrainosus, not intractable G43.009 and Tobacco abuse Z72.0 [facility] [address] [id number] 14 Aug, 2016 Encounter for dental examination Z01.20 [facility] [address], [place] [address]- 6902 02 Aug, 2016 Major depressive disorder, recurrent, moderate F33.1 ; Anxiety disorder, unspecified F41.9 and 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 [facility] [address], [place] [address]- 0752 July, [facility] [id number] [place] [address] 82484- 1936 July, [facility] [id number] [place] [address] 43455- 6491 July, [facility] [id number] [place] [address] 32292- 9977 July, Diabetes E11.9 [facility] [id number] [place] [address] 46915- 1840 Jun, Major depressive disorder, recurrent, moderate F33.1 [facility] [address], [place] [address]- 4387 Jun, Major depressive disorder, recurrent, moderate F33.1 ; Other 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 ; Generalized anxiety disorder F41.1 and Bipolar disorder, unspecified F31.9 [facility] [address], [place] [address]- 2138 Jun, Diabetes E11.9 ; Migraine G43.909 ; Thrush B37.0 and Wheezing R06.2 [facility] [id number] [id number] Jun, Dental examination Z01.20 [facility] [address], [place] [address]- 4470 Jun, [facility] [address], [place] [address]- 6921 Jun, Major depressive disorder, recurrent, moderate F33.1 ; Anxiety disorder, unspecified F41.9 and 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 [place] [id number] [place] [address] 26597- 3535 Jun, [facility] [id number] [place] [address] 96998- 8006 Jun, Wheezing R06.2 [facility] [address] [id number] Jun, Dental caries K02.9 [place] [id number] [place] [address] 35199- 9218 Jun, Major depressive disorder, recurrent, moderate F33.1 ; Anxiety disorder, unspecified F41.9 and 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 [place] [id number] [place] [address] 66722- 3836 Jun, RLQ abdominal pain R10.31 ; Diabetes E11.9 ; Obesity, unspecified obesity severity, unspecified obesity type E66.9 ; Wheezing R06.2 and Abnormal urinalysis R82.90 [place] [id number] [place] [address] 90914- 9165 May, [place] [address] [place] [address] 69292- 7297 May, Well woman exam Z01.419 ; Breast cancer screening Z12.39 ; Cervical cancer screening Z12.4 ; Urinary frequency R35.0 ; Edema, unspecified type R60.9 and Chronic constipation K59.09 [place] [address] [place] [address] 83690- 0790 May, Major depressive disorder, recurrent, moderate F33.1 ; Anxiety disorder, unspecified F41.9 and Other stimulant dependence with unspecified 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 [facility] [address] [place] [address] [id number] May, Dental examination Z01.20 [place] [id number] [place] [address] 20708- 2419 May, [facility] [id number] [place] [address] 59744- 5661 May, [facility] [id number] [place] [address] 00464- 2796 May, Chronic constipation K59.09 [place] [id number] [place] [address] 68389- 6852 Apr, [place] [id number] [place] [address] 65691- 3498 Apr, Major depressive disorder, recurrent, moderate F33.1 ; Anxiety disorder, unspecified F41.9 and 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 [place] [id number] [place] [address] 08078- 8742 Apr, [place] [id number] [place] [address] 06062- 8579 Mar, Major depressive disorder, recurrent, moderate F33.1 [place] [id number] [place] [address] 10383- 0747 Mar, Major depressive disorder, recurrent, moderate F33.1 ; Generalized anxiety disorder F41.1 and Bipolar I disorder, most recent episode depressed with anxious distress F31.30 [place] [id number] [place] [address] 83913- 1380 Mar, Diabetes E11.9 ; Non morbid obesity due to excess calories E66.09 ; Breast cancer screening Z12.39 and Encounter for immunization Z23 [place] [id number] [place] [address] 25687- 8452 Mar, Major depressive disorder, recurrent, moderate F33.1 ; Anxiety disorder, unspecified F41.9 and 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 [place] [id number] [place] [address] 35820- 7234 Mar, [facility] [address], [place] [address]- 2676 Feb, Major depressive disorder, recurrent, moderate F33.1 ; Anxiety disorder, unspecified F41.9 and 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 [facility] [address], [place] [address]- 8700 Feb, [facility] [id number] [place] [address] 00807- 9025 Feb, [place] [address] [place] [address] 34628- 1702 Jan, Major depressive disorder, recurrent, moderate F33.1 ; Generalized anxiety disorder F41.1 and Bipolar disorder, current episode depressed, severe, without psychotic features F31.4 [place] [address] [place] [address] 84385- 2234 Jan, Major depressive disorder, recurrent, moderate F33.1 ; Anxiety disorder, unspecified F41.9 and 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 [place] [address] [place] [address] 05779- 2254 16 Jan, 2016 Bronchitis J40 [place] [address] [place] [address] 06372- 8858 15 Jan, 2016 [place] [address] [place] [address] 96464- 0065 Jan, [facility] [address] [place] [address] 71102- 3574 Jan, Elbow injury, right, initial encounter S59.901A ; Multiple contusions T14.8 and Cervical strain, acute, initial encounter S16.1XXA [place] [address] [place] [address] 83760- 1623 Dec, Major depressive disorder, recurrent, moderate F33.1 ; Generalized anxiety disorder F41.1 and Bipolar disorder with depression F31.30 [place] [address], [place] [address]- 7697 Dec, [facility] [address], [place] [address]- 3729 Dec, [facility] [address], [place] [address]- 2704 Dec, [place] [id number] [place] [address] 31613- 2083 Dec, [facility] [address] [place] [address] 17765- 9156 Dec, Yeast infection B37.9 [place] [address] [place] [address] 74909- 5596 Dec, Pneumonia of both lungs due to methicillin resistant Staphylococcus aureus (MRSA), unspecified part of lung J15.212 and Benzodiazepine overdose, accidental or unintentional, subsequent encounter T42.4X1D [place] [address], [place] [address]- 4412 Dec, [facility] [id number] [place] [address] 70877- 2650 Dec, [place] [id number] [place] [address] 50787- 6865 Dec, Knee pain, left M25.562 and Edema, unspecified type R60.9 [place] [address], [place] [address]- 4665 Dec, [place] [address], [place] [address]- 6528 Dec, Anxiety disorder, unspecified F41.9 and Bipolar disorder, unspecified F31.9 [place] [address], [place] [address]- 8094 Nov, Major depressive disorder, recurrent, moderate F33.1 ; Anxiety disorder, unspecified F41.9 and Other stimulant dependence with unspecified stimulant-induced disorder 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 [place] [address], [place] [address]- 9776 Nov, [place] [id number] [place] [address] 12276- 3007 Nov, Migraine without aura and without status migrainosus, not intractable G43.009 [place] [id number] [place] [address] 92807- 1892 Nov, Migraine G43.909 [place] [id number] [place] [address] 76894- 0082 Nov, [place] [id number] [place] [address] 71825- 7810 Nov, Major depressive disorder, recurrent, moderate F33.1 ; Anxiety disorder, unspecified F41.9 and 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 [place] [id number] [place] [address] 46890- 0753 Oct, Chronic constipation K59.09 and Obesity, unspecified obesity severity, unspecified obesity type E66.9 [place] [id number] [place] [address] 93560- 9551 Oct, Obesity, unspecified obesity severity, unspecified obesity type E66.9 ; Chronic constipation K59.09 and Anxiety disorder, unspecified F41.9 [place] [address] [place] [address] 18876- 1335 Oct, [place] [id number] [place] [address] 96183- 5687 Sep, Diabetes E11.9 ; Edema, unspecified type R60.9 ; Varicose vein of leg I83.90 and Obesity, unspecified obesity severity, unspecified obesity type E66.9 [place] [address] [place] [address] 55462- 1518 Sep, Edema, unspecified type R60.9 ; Diabetes E11.9 and Knee pain , left M25.562 [place] [address], [place] [address]- 1562 Sep, [facility] [id number] [place] [address] 64464- 7296 Sep, [facility] [id number] [place] [address] 02592- 9495 Sep, Major depressive disorder, recurrent, moderate F33.1 ; Generalized anxiety disorder F41.1 and Bipolar disorder, unspecified F31.9 [facility] [id number] [place] [address] 06215- 4507 Aug, Chondromalacia of left knee M94.262 [place] [id number] [place] [address] 13951- 3502 Aug, Major depressive disorder, recurrent, moderate F33.1 ; Anxiety disorder, unspecified F41.9 and 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 [place] [id number] [place] [address] 67535- 0899 Aug, [place] [id number] [place] [address] 75516- 3142 Aug, Osteoarthritis of left knee M17.9 [facility] [id number] [place] [address] 39599- 6270 Aug, [place] [address] [place] [address] 57861- 2154 July, Major depressive disorder, recurrent, moderate F33.1 ; Anxiety disorder, unspecified F41.9 and 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 [place] [id number] [place] [address] 30671- 5114 July, [place] [address] [address] [place] [id number] [place] [address] 15602- 4762 July, Chronic constipation K59.09 [facility] [address] [place] [id number] [place] [address] [id number]- 7150 Jun, [place] [address] [address] [place] [id number] [place] [address] [id number] 5827 Jun, [place] [address] [address] [place] [id number] [place] [address] 27723- 5197 14 Jun, 2015 Osteoarthritis of left knee M17.9 [place] [address] [address] [place] [id number] [place] [address] [id number] 7319 Jun, [place] [address] [address] [place] [id number] [place] [address] [id number] [phone] Jun, Generalized anxiety disorder F41.1 ; Bipolar disorder, unspecified F31.9 and Major depressive disorder, recurrent, moderate F33.1 [place] [id number] [place] [address] 35484- 1891 Jun, Migraine G43.909 [place] [id number] [place] [address] 02854- 6315 Jun, Left knee pain M25.562 ; Chronic constipation K59.09 ; Dry mouth R68.2 ; Yeast vaginitis B37.3 and Memory loss R41.3 [place] [id number] [place] [address] 81841- 5893 Jun, [place] [id number] [place] [address] 92181- 5915 May, [place] [id number] [place] [address] 62087- 6633 May, [place] [id number] [place] [address] 69529- 8937 May, [place] [id number] [place] [address] 83894- 1719 May, [place] [id number] [place] [address] 03928- 4375 May, Acute bronchitis with COPD J44.0 ; Knee pain, left M25.562 and Encounter for tobacco use cessation counseling Z71.6 [place] [id number] [place] [address] 94719- 4778 May, [facility] [id number] [place] [address] 30957- 6466 Apr, Diabetes E11.9 ; TMJ (sprain of temporomandibular joint) S03.4XXA ; Tobacco abuse Z72.0 ; Migraine G43.909 and Anxiety F41.9 [place] [id number] [place] [address] 23997- 2270 Apr, Generalized anxiety disorder F41.1 and Bipolar disorder, unspecified F31.9 [place] [id number] [place] [address] 28951- 7481 Apr, Major depressive disorder, recurrent, moderate F33.1 ; Anxiety disorder, unspecified F41.9 and 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 [place] [id number] [place] [address] 58218- 5584 Apr, [facility] [id number] [place] [address] 73792- 8108 Mar, [place] [id number] [place] [address] 22947- 3735 Feb, [place] [id number] [place] [address] 79866- 4661 14 Feb, 2015 Major depressive disorder, recurrent, moderate F33.1 ; Anxiety disorder, unspecified F41.9 and 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 [place] [id number] [place] [address] 58724- 9536 Feb, [place] [id number] [place] [address] 71255- 6725 Feb, Generalized anxiety disorder F41.1 and Bipolar disorder, unspecified F31.9 [facility] [id number] [place] [address] 42289- 7941 Jan, [facility] [id number] [place] [address] 25881- 2838 Jan, [facility] [address] 14523- 1034 Jan, Bipolar disorder, unspecified F31.9 and Generalized anxiety disorder F41.1 [facility] [address] 13453- 3753 Dec, [facility] [address] 13063- 9702 Dec, Bipolar disorder, unspecified F31.9 and Generalized anxiety disorder F41.1 [place] [address] 31848- 7562 Dec, Generalized anxiety disorder F41.1 and Major depressive disorder, recurrent, moderate F33.1 [place] [address] 02788- 2451 Oct, Headache 784.0 ; Cough 786.2 ; Vomiting and diarrhea 787.03 and Dysuria 788.1 [place] [address] 27253- 2356 Aug, [facility] [address] 94680- 0209 Aug, Headache 784.0 and Shortness of breath 786.05 [facility] [id number] [place] [address] 57917- 9617 Aug, [facility] [address] 89652- 0982 Aug, Migraine 346.90 [facility] [address] 95012- 4920 Jun, [facility] [address] 02090- 8715 Jun, [facility] [address] 77513- 0257 May, [facility] [place] [facility] [address] [id number] [place] [address]- 8519 May, [facility] [place] [facility] [address] [id number] [place] [address]- 5863 May, [facility] [place] [facility] [address] [facility] [id number] [place] [address]- 7223 May, [facility] [place] [facility] [address] [id number] [place] [address]- 5374 May, [facility] [place] [facility] [address] [id number] [place] [address]- 0009 May, [facility] [place] [facility] [address] [id number] [place] [address]- 4103 Apr, [facility] [place] [facility] [address] [facility] [id number] [place] [address]- 0324 Apr, [facility] [place] [facility] [address] [facility] [id number] [place] [address]- 0384 Apr, [facility] [place] [facility] [address] [facility] [id number] [place] [address]- 3522 Apr, [facility] [place] [facility] [address] [facility] [id number] [place] [address]- 9671 Apr, [facility] [place] [facility] [address] [facility] [id number] [place] [address]- 0913 Mar, [facility] [place] [facility] [address] [id number] [address]- 5569 Mar, [facility] [place] [facility] [address] [id number] [place] [address]- 3132 Mar, [facility] [place] [facility] [address] [facility] [id number] [place] [address]- 5884 Mar, [facility] [place] [facility] [address] [facility] [id number][place] 2562 Feb, [facility] [place] [facility] [address] [id number] [place] [address]- 1725 19 Feb, 2014 [facility] [place] [facility] [address] [id number] [place] [address]- 5717 Feb, [facility] [place] [facility] [address] [id number] [place] 8307 Feb, [facility] [place] [facility] [address] [id number] [place] [address]- 9488 Feb, [facility] [place] [facility] [address] [id number] [place] [address]- 7003 16 Feb, 2014 [facility] [place] [facility] [address] [id number] [place] [address]- 6721 Feb, [facility] [place] [facility] [address] [id number] [place] [address]- 4648 Feb, [facility] [place] [facility] [address] [id number] [place] [address]- 9999 Feb, [facility] [place] [facility] [address] [id number] [place] [address]- 7181 Feb, [facility] [place] [facility] [address] [id number] [place] [address]- 0500 Feb, [facility] [place] [facility] [address] [id number] [place] [address]- 3836 Feb, [facility] [place] [facility] [address] [id number] [place] [address]- 6121 Jan, [facility] [place] [facility] [address] [id number] [place] [address]- 0606 10 Jan, 2014 [facility] [place] [facility] [address] [id number] [place] [address]- 2997 10 Dec, 2013 [facility] [place] [facility] [address] [id number] [place] [address]- 2608 10 Dec, 2013 [facility] [place] [facility] [address] [id number] [place] [address]- 1141 Dec, [facility] [place] [facility] [address] [id number] [place] [address]- 4527 Dec, [facility] [place] [facility] [address] [id number] [place] [address]- 0800 Dec, [facility] [place] [facility] [address] [id number] [place] [address]- 1983 Dec, [facility] [place] [facility] [address] [id number] [place] [address]- 2217 Sep, [facility] [place] [facility] [address] [id number] [place] [address]- 7466 Sep, [facility] [place] [facility] [address] [id number] [place] [address]- 6496 Sep, [facility] [place] [facility] [address] [id number] [place] [address]- 7249 Sep, [facility] [place] [facility] [address] [id number] [place] [address]- 5515 Sep, [facility] [place] [facility] [address] [id number] [place] [address]- 0341 Sep, [facility] [place] [facility] [address] [id number] [place] [address]- 1269 Sep, [facility] [place] [facility] [address] [id number] [place] [address]- 1437 Sep, [facility] [place] [facility] [address] [id number] [place] [address]- 5743 Sep, [facility] [place] [facility] [address] [id number] [place] [address]- 7285 Sep, [facility] [place] [facility] [address] [id number] [place] [address]- 8289 Aug, [facility] [place] [facility] [address] [id number] [place] [address]- 5972 Aug, [facility] [place] [facility] [address] [id number] [place] [address]- 7479 Aug, [facility] [place] [facility] [address] [id number] [place] [address]- 4575 Aug, [facility] [place] [facility] [address] [id number] [place] [address]- 3565 Aug, [facility] [place] [facility] [address] [id number] [place] [address]- 9487 Aug, [facility] [place] [facility] [address] [id number] [place] [address]- 8181 Aug, [facility] [place] [facility] [address] [id number] [place] [address]- 9002 Aug, [facility] [place] [facility] [address] [id number] [place] [address]- 1127 Aug, [facility] [place] [facility] [address] [id number] [place] [address]- 6467 Aug, [facility] [place] [facility] [address] [id number] [place] [address]- 5757 Aug, [facility] [place] [facility] [address] [id number] [place] [address]- 1999 Aug, [facility] [place] [facility] [address] [id number] [place] [address]- 9829 Aug, [facility] [place] [facility] [address] [id number] [place] [address]- 4743 July, [facility] [place] [facility] [address] [id number] [place] [address]- 5974 July, [facility] [place] [facility] [address] [id number] [place] [address]- 7758 July, [facility] [place] [facility] [address] [id number] [place] [address]- 1767 July, [facility] [place] [facility] [address] [id number] [place] [address]- 2092 July, [facility] [place] [facility] [address] [id number] [place] [address]- 1688 July, [facility] [place] [facility] [address] [id number] [place] [address]- 6236 July, [facility] [place] [facility] [address] [id number] [place] [address]- 6085 Jun, [facility] [place] [facility] [address] [id number] [place] [address]- 1680 Jun, [facility] [place] [facility] [address] [id number] [place] [address]- 7130 18 Jun, 2013 [facility] [place] [facility] [address] [id number] [place] [address]- 8766 Jun, [facility] [place] [facility] [address] [id number] [place] [address]- 4850 Jun, [facility] [place] [facility] [address] [id number] [place] [address]- 4749 Jun, [facility] [place] [facility] [address] [id number] [place] [address]- 7479 Jun, [facility] [place] [facility] [address] [id number] [place] [address]- 9080 17 May, 2013 [facility] [place] [facility] [address] [id number] [place] [address]- 4441 17 May, 2013 [facility] [place] [facility] [address] [id number] [place] [address]- 4665 14 May, 2013 [facility] [place] [facility] [address] [id number] [place] [address]- 3751 14 May, 2013 [facility] [place] [facility] [address] [id number] [place] [address]- 3825 13 May, 2013 [facility] [place] [facility] [address] [id number] [place] [address]- 7365 13 May, 2013 [facility] [place] [facility] [address] [id number] [place] [address]- 3766 May, [facility] [place] [facility] [address] [id number] [place] [address]- 2530 May, [facility] [place] [facility] [address] [id number] [place] [address]- 7288 May, [facility] [place] [facility] [address] [id number] [place] [address]- 4886 Apr, [facility] [place] [facility] [address] [id number] [place] [address]- 1983 Apr, [facility] [place] [facility] [address] [id number] [place] [address]- 5960 18 Apr, 2013 [facility] [place] [facility] [address] [id number] [place] [address]- 2255 Apr, [facility] [place] [facility] [address] [id number] [place] [address]- 0204 Apr, [facility] [place] [facility] [address] [id number] [place] [address]- 4604 Apr, [facility] [place] [facility] [address] [id number] [place] [address]- 9353 Apr, [facility] [place] [facility] [address] [facility] [id number] [place] [address]- 1911 Apr, [facility] [place] [facility] [address] [id number] [place] [address]- 1080 Apr, [facility] [place] [facility] [address] [id number] [place] [address]- 0109 Apr, [facility] [place] [facility] [address] [id number] [place] [address]- 0840 Mar, [facility] [place] [facility] [address] [id number] [place] [address]- 5179 Mar, [facility] [place] [facility] [address] [id number] [place] [address]- 4528 Mar, [facility] [place] [facility] [address] [id number] [place] [address]- 6392 Mar, [facility] [place] [facility] [address] [id number] [place] [address]- 0067 Mar, [facility] [place] [facility] [address] [id number] [place] [address]- 5642 Mar, [facility] [place] [facility] [address] [id number] [place] [address]- 3594 Mar, [facility] [place] [facility] [address] [id number] [place] [address]- 5628 Mar, [facility] [place] [facility] [address] [id number] [place] [address]- 1532 Feb, [facility] [place] [facility] [address] [id number] [place] [address]- 1121 Feb, [facility] [place] [facility] [address] [id number], [place] [address]- 8285 Jan, [facility] [place] [facility] [address] [id number] [place] [address]- 4351 Jan, [facility] [place] [facility] [address] [id number], [place] [address]- 2760 Jan, [facility] [place] [facility] [address] [id number], [place] [address]- 1152 Jan, [facility] [place] [facility] [address] [id number], [place] [address]- 0963 Jan, [facility] [place] [facility] [address] [id number], [place] [address]- 5134 Jan, [facility] [place] [facility] [address] [id number], [place] [address]- 2076 Jan, [facility] [place] [facility] [address] [id number], [place] [address]- 4601 05 Jan, 2013 [facility] [place] [facility] [address] [id number], [place] [address]- 7661 Dec, [facility] [place] [facility] [address] [id number] [place] [address]- 9944 10 Dec, 2012 [facility] [place] [facility] [address] [id number] [place] [address]- 4047 10 Dec, 2012 [facility] [place] [facility] [address] [id number] [place] [address]- 6836 20 Nov, 2012 [facility] [place] [facility] [address] [id number] [place] [address]- 9214 13 Nov, 2012 [facility] [place] [facility] [address] [id number] [place] [address]- 4709 12 Nov, 2012 [facility] [place] [facility] [address] [id number] [place] [address]- 1005 09 Nov, 2012 [facility] [address] [id number] [place] [address]- 6334 06 Nov, 2012 [facility] [place] [facility] [address] [id number] [place] [address]- 2450 Nov, [facility] [place] [facility] [address] [id number] [place] [address]- 4149 Oct, [facility] [place] [facility] [address] [id number] [place] [address]- 1945 Oct, [facility] [place] [facility] [address] [id number] [place] [address]- 8384 Sep, [facility] [place] [facility] [address] [id number] [place] [address]- 4102 Sep, [facility] [place] [facility] [address] [id number] [place] [address]- 2915 Sep, [facility] [place] [facility] [address] [id number] [place] [address]- 3309 Sep, [facility] [place] [facility] [address] [id number] [place] [address]- 3599 Sep, [facility] [place] [facility] [address] [id number] [place] [address]- 4727 09 Sep, 2012 [facility] [place] [facility] [address] [id number] [place] [address]- 3510 Sep, [facility] [place] [facility] [address] [id number] [place] [address]- 3589 Aug, [facility] [place] [facility] [address] [id number] [place] [address]- 5886 14 Aug, 2012 [facility] [place] [facility] [address] [id number] [place] [address]- 2888 Aug, [facility] [place] [facility] [address] [id number] [place] [address]- 8471 Aug, [facility] [place] [facility] [address] [id number] [place] [address]- 2852 Aug, [facility] [place] [facility] [address] [id number] [place] [address]- 3028 Aug, [facility] [place] [facility] [address] [id number] [place] [address]- 7403 July, [facility] [place] [facility] [address] [id number] [place] [address]- 6022 July, [facility] [place] [facility] [address] [id number] [place] [address]- 5467 July, [facility] [place] [facility] [address] [id number] [place] [address]- 9637 July, [facility] [place] [facility] [address] [id number] [place] [address]- 3593 July, [facility] [place] [facility] [address] [id number] [place] [address]- 3673 July, [facility] [place] [facility] [address] [id number] [place] [address]- 3174 Jun, [facility] [place] [facility] [address] [id number] [place] [address]- 6806 Jun, [facility] [address] [facility] [id number] [place] [address]- 8922 Jun, [facility] [place] [facility] [address] [facility] [id number] [place] [address]- 7318 Jun, [facility] [place] [facility] [id number] [place] [address]- 5779 Jun, [facility] [place] [facility] [address] [facility] [id number] [place] [address] Jun, [facility] [address] [facility] [id number] [place] [address] Jun, [facility] [place] [facility] [id number] [place] [address] May, [facility] [place] [facility] [id number] [place] [address] May, [facility] [place] [facility] [id number] [place] [address] Apr, [facility] [place] [facility] [id number] [place] [address] Apr, [facility] [place] [facility] [id number] [place] [address] Apr, [facility] [place] [facility] [id number] [place] [address] Apr, [facility] [place] [facility] [id number] [address] Apr, [facility] [place] [facility] [address] [facility] [id number] [place] [address] 08 Apr, 2012 [facility] [place] [facility] [address] [facility] [id number], [place] [address] 07 Apr, 2012 [facility] [place] [facility] [id number] [place] [address] 07 Apr, 2012 [facility] [place] [facility] [address] [id number] [place] [address] 06 Apr, 2012 [facility] [address] [id number] [place] [address] Apr, [facility] [place] [facility] [address] [id number] [place] [address] Apr, [facility] [address] [id number] [place] [address] Mar, [facility] [address] [id number] [place] [address] Mar, [facility] [address] [id number] [place] [address] Mar, [facility] [address] [id number] [place] [address] Mar, [facility] [address] [id number] [place] [address]178 Mar, [facility] [address] [id number] [place] [address] 86[address] Mar, [facility] [address] [id number] [place] [address] Mar, [facility] [address] [id number] [place] [address] Mar, [facility] [address] [id number] [place] [address] Mar, [facility] [place] [facility] [address] [id number] [place] [address] 69[address] Mar, [facility] [place] [facility] [address] [id number] [place] [address] Mar, [facility] [place] [facility] [address] [id number] [place] [address] 1402 Mar, [facility] [place] [facility] [address] [id number] [place] [address] Mar, [facility] [address] [id number] [place] [address] Feb, [facility] [place] [facility] [address] [id number] [place] [address] Feb, [facility] [place] [facility] [address] [id number] [place] [address]446 Feb, [facility] [place] [facility] [address] [id number] [place] [address] 4[address] Feb, [facility] [place] [facility] [address] [id number] [place] [address] Feb, [facility] [place] [facility] [address] [id number] [place] [address] Feb, [facility] [place] [facility] [address] [id number] [place] [address] Feb, [facility] [place] [facility] [address] [id number] [place] [address]- 395[address] Feb, [facility] [place] [facility] [address] [id number] [place] [address] 269[address] Feb, [facility] [place] [facility] [address] [id number] [place] [address] Feb, [facility] [place] [facility] [address] [id number] [place] [address]- 4863 Feb, [facility] [place] [facility] [address] [id number] [place] [address]- [address] Feb, [facility] [place] [facility] [address] [id number] [place] [address]- [address]478 Feb, [facility] [place] [facility] [address] [id number] [place] [address]- 64[address] Feb, [facility] [place] [facility] [address] [id number] [place] [address] Feb, [facility] [place] [facility] [address] [id number] [place] [address]368 Jan, 2011 [facility] [place] [facility] [address] [id number] [place] [address]- [address]95 Jan, 2011 [facility] [place] [facility] [address] [id number] [place] [address] Jan, 2011 [facility] [address] [id number] [place] [address]- [address]156 Jan, [facility] [place] [facility] [address] [id number] [place] [address]- [address]70 Dec, [facility] [place] [facility] [address] [id number] [place] [address]- [address]479 Dec, [facility] [place] [facility] [address] [id number] [place] [address]- [address] Dec, [facility] [place] [facility] [address] [id number] [place] [address]- 7426 Dec, [facility] [place] [facility] [address] [id number] [place] [address]- 48[address] Dec, [facility] [place] [facility] [address] [facility] [id number] [place] [address]- 9695 Dec, [facility] [place] [facility] [address] [facility] [id number], [place] [address] Dec, [facility] [place] [facility] [address] [facility] [id number] [place] [address] Dec, [facility] [place] [facility] [address] [id number], [place] [address]- [address] Dec, [facility] [place] [facility] [address] [id number] [place] [address]- 8906 Dec, [facility] [place] [facility] [address] [facility] [id number] [place] [address]- 7428 Dec, [facility] [place] [facility] [address] [facility] [id number], [place] [address]- [address] Nov, [facility] [place] [facility] [address] [id number] [place] [address]- [address] 24 Sep, 2011 [facility] [place] [facility] [address] [id number] [place] [address]- 8036 20 Sep, 2011 [facility] [place] [facility] [address] [id number] [place] [address]- 7156 19 Sep, 2011 [facility] [place] [facility] [address] [id number] [place] [address] 2546 17 Sep, 2011 [facility] [place] [facility] [address] [id number] [place] [address] 16 Sep, 2011 [facility] [place] [facility] [address] [id number] [place] [address] 14 Sep, 2011 [facility] [place] [facility] [address] [id number] [place] [address] 13 Sep, 2011 [facility] [place] [facility] [address] [id number] [place] [address] 12 Sep, 2011 [facility] [place] [facility] [address] [id number] [place] [address] 07 Sep, 2011 [facility] [place] [facility] [address] [id number] [place] [address] 79[address] 06 Sep, 2011 [facility] [place] [facility] [address] [id number] [place] [address] 06 Nov, 2011 [facility] [place] [facility] [address] [id number], [place] [address] 05 Sep, 2011 [facility] [place] [facility] [address] [id number] [place] [address] 29 Oct, 2011 [facility] [place] [facility] [address] [id number] [place] [address] 29 Oct, 2011 [facility] [place] [facility] [address] [id number] [place] [address] 28 Oct, 2011 [facility] [place] [facility] [address] [id number], [place] [address] Oct, [facility] [place] [facility] [address] [id number] [place] [address] Oct, [facility] [place] [facility] [address] [id number] [place] [address] Oct, [facility] [place] [facility] [address] [id number] [place] [address] 6[address] Oct, [facility] [place] [facility] [address] [id number] [place] [address] 3364 16 Oct, 2011 [facility] [place] [facility] [address] [id number] [place] [address] 4658 Oct, [facility] [place] [facility] [address] [id number] [place] [address] Oct, [facility] [place] [facility] [address] [id number] [place] [address] 3587 Oct, [facility] [place] [facility] [address] [id number] [place] [address] 1586 Sep, [facility] [place] [facility] [address] [id number] [place] [address] 1567 Sep, [facility] [place] [facility] [address] [id number] [place] [address] 25[address] Sep, [facility] [place] [facility] [address] [id number] [place] [address] 7526 Sep, [facility] [place] [facility] [address] [id number] [place] [address]- 1503 Sep, [facility] [place] [facility] [address] [id number] [place] [address]- 2840 Sep, [facility] [place] [facility] [address] [id number] [place] [address] 75[address] Aug, [facility] [place] [facility] [address] [id number] [place] [address] 2625 July, [facility] [place] [facility] [address] [id number] [place] [address] 4927 July, [facility] [place] [facility] [address] [id number] [place] [address] 1690 Jun, [facility] [place] [facility] [address] [id number] [place] [address] 0446 Jun, [facility] [place] [facility] [address] [id number] [place] [address] 7180 Jun, [facility] [place] [facility] [address] [id number] [place] [address] 9246 Jun, [facility] [place] [facility] [address] [id number] [place] [address]- 7430 Jun, [facility] [place] [facility] [address] [id number] [place] [address] Jun, [facility] [place] [facility] [address] [id number] [place] [address] 1552 Jun, [facility] [place] [facility] [address] [id number] [place] [address] 5974 Jun, [facility] [place] [facility] [address] [id number] [place] [address] 5[address] Jun, [facility] [place] [facility] [address] [id number] [place] [address] 7253 Jun, [facility] [place] [facility] [address] [id number] [place] [address] 3619 Jun, [facility] [place] [facility] [address] [id number] [place] [address]- [address]208 19 May, 2011 [facility] [place] [facility] [address] [id number] [place] [address] 8336 16 May, 2011 [facility] [place] [facility] [address] [id number] [place] [address] 1116 14 May, 2011 [facility] [place] [facility] [address] [id number] [place] [address] 1198 May, [facility] [address] [id number] [place] [address] 2098 Apr, [facility] [place] [facility] [address] [id number] [place] [address]- 6546 Apr, [facility] [place] [facility] [address] [facility] [id number] [place] [address] 4706 Apr, [facility] [place] [facility] [address] [id number] [place] [address] 6096 Apr, [facility] [place] [facility] [address] [id number] [place] [address]- 1076 Apr, [facility] [place] [facility] [address] [id number] [place] [address] 4559 Apr, [facility] [place] [facility] [address] [facility] [id number] [place] [address] 8450 Apr, [facility] [place] [facility] [address] [id number] [place] [address] 1895 Apr, [facility] [place] [facility] [address] [facility] [id number] [place] [address] 1637 Mar, [facility] [place] [facility] [address] [facility] [id number] [place] [address]- 7535 Mar, [facility] [place] [facility] [address] [facility] [id number] [place] [address] 5[address] Mar, [facility] [place] [facility] [address] [id number] [place] [address] 7478 18 Mar, 2011 [facility] [place] [facility] [address] [id number] [place] [address] 2659 17 Mar, 2011 [facility] [place] [facility] [address] [facility] [id number] [place] [address]- 5078 13 Mar, 2011 [facility] [place] [facility] [address] [facility] [id number] [place] [address]- 5408 Mar, [facility] [place] [facility] [address] [id number] [place] [address]- 8993 Mar, [facility] [place] [facility] [address] [id number] [place] [address]- 6139 Mar, [facility] [place] [facility] [address] [id number] [place] [address]- 3636 Mar, [facility] [place] [facility] [address] [id number] [place] [address]- 1430 Mar, [facility] [place] [facility] [address] [id number] [place] [address]- 8545 Mar, [facility] [place] [facility] [address] [id number] [place] [address]- 0069 Mar, [facility] [place] [facility] [address] [id number] [place] [address]- 0443 Mar, [facility] [place] [facility] [address] [id number] [place] [address]- 0599 Mar, [facility] [place] [facility] [address] [id number] [place] [address]- 1844 Mar, [facility] [place] [facility] [address] [id number] [place] [address]- 6764 Feb, [facility] [place] [facility] [address] [id number] [place] [address]- 0749 Feb, [facility] [place] [facility] [address] [id number] [place] [address]- 7982 Feb, [facility] [place] [facility] [address] [id number] [place] [address]- 9630 Jan, [facility] [place] [facility] [address] [id number] [place] [address]- 9209 Jan, [facility] [place] [facility] [address] [id number] [place] [address]- 2546 Jan, [facility] [place] [facility] [address] [id number] [place] [address]- 7616 Dec, [facility] [address] [facility] [id number], [place] [address]- [address]886 Dec, [facility] [address] [facility] [id number], [place] [address]- 2546 Nov, [facility] [address] [facility] [id number], [place] [address]- 2546 Oct, [facility] [address] [facility] [id number], [place] [address]- 2546 Oct, [facility] [address] [facility] [id number], [place] [address]- 4714 Oct, [facility] [id number], [place] [address] 2546 Sep, [facility] [id number], [place] [address]- 5186 Apr, [facility] [address] [id number], [place] [address] 4196 Feb, [facility] [address] [facility] [id number], [place] [address]- 0466 Jan, IMMUNIZATIONS No Known Immunizations SOCIAL HISTORY Never Assessed REASON FOR VISIT PALS IN-[employer] PLAN OF CARE VITAL SIGNS MEDICATIONS No [...] 2/2 Benzos OD, pneumonia MRSA, [facility], Hypokalemia-- [facility] 12/20/2015 Hospitalization History COPD exacerbation, Asthma-[facility] 09/21/16 Hospitalization History COPD-[facility] 12/30/2016 Hospitalization History [facility] and [facility] for inpatient-last around 2006 or so. Hospitalization History for COPD x2 Mar 2017 Hospitalization History Upper GI bleed at apr 2017 Hospitalization History [facility]- COPD Exacerbation, diarrhea 05/23/2017 Hospitalization History COPD exacerbation-[facility] 06/13/17 Hospitalization History [facility] 09/09/2017
[2017-11-19 12:40] LABS: ABG BASE EXCESS -1.6 MMOL/L (-2.5-2.5); ABG OXYGEN SATURATION 100 % (94-100); ABG PCO2 23 MMHG (35-45); ABG PH 7.56 (7.37-7.43); ABG PO2 198 MMHG (79-93); ABG TCO2 21.2 MMOL/L (21.0-31.0)
[2017-11-19 12:44] LABS: ALLENS TEST POSITIVE; INSPIRED O2 45% BIPAP; PATIENT TEMP 97.8; VENTILATOR NO
--- OUTSIDE RECORDS SUMMARY | 2017-11-19 13:16 | XMS REPORT ---
Author Author RADHA CAMERON Organization [facility] Address [address] [place] [address] Care Team Providers Care Cookie Mixer Helper Name Role Phone HUMBERTOSIA CAMERON Unavailable PROBLEMS Type Condition ICD9-CM Code [id number] Code Onset Dates Condition Status SNOMED Code Problem Bipolar disorder with depression F31.30 Active 65457935 Problem Other emphysema J43.8 Active 61999869 Problem Migraine without aura and without status migrainosus, not intractable G43.009 Active 744457717 Problem Anxiety F41.9 Active 83287552 Problem COPD with exacerbation J44.1 Active 743523454 Problem Methamphetamine use disorder, moderate, 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 Active 26213497 Problem Chronic bronchitis, unspecified chronic bronchitis type J42 Active 84467577 Problem Intractable cyclical vomiting with nausea G43.A1 Active 32977505 Problem Diabetes E11.9 Active 823986625 Problem 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 Active Problem Tobacco abuse Z72.0 Active 03344042 Problem Examination of eyes and vision V72.0 Active 931043629 Problem Chronic constipation K59.09 Active 073536781 Problem Memory loss R41.3 Active 74204969 Problem Migraine G43.909 Active 43069878 Problem Bipolar disorder, unspecified F31.9 Active 85259381 Problem TMJ (sprain of temporomandibular joint) S03.4XXA Active 92884588 Problem Generalized anxiety disorder F41.1 Active 24709196 ALLERGIES No Information ENCOUNTERS Encounter Location Date Diagnosis [facility] [address], [place] [address] Oct, [facility] [address], [place] [address] Oct, [facility] [address], [place] [address] Oct, [facility] [address] [place] [address] Oct, [facility] [address] [place] [address] Oct, Thrush B37.0 [facility] [address] [place] [address] Sep, COPD with exacerbation J44.1 and Anxiety F41.9 [facility] [address] [facility] [id number] [place] [address] Sep, [facility] [id number] [place] [address], [place] [address] Sep, [facility] [address], [place] [address] Sep, [facility] [address] [place] [address] 28562- 0104 Sep, Acute congestive heart failure, unspecified heart failure type I50.9 and Anxiety disorder, unspecified F41.9 [facility] [address], [place] [address] 6[address] Sep, Heart failure, unspecified HF chronicity, unspecified heart failure type I50.9 [facility] [address], [place] [address] 75[address] Sep, [facility] [address], [place] [address] Aug, Chronic obstructive pulmonary disease with acute exacerbation J44.1 [facility] [address] [place] [address] Aug, [facility] [address], [place] [address] 95[address] Aug, [facility] [address], [place] [address] July, [facility] [id number] [place] [address] 16830- 7251 July, [facility] [id number] [place] [address] 40276- 5636 July, Diabetes E11.9 and Chronic obstructive pulmonary disease with acute exacerbation J44.1 [facility] [id number] [place] [address] 94916- 2667 Jun, Chronic obstructive pulmonary disease with acute exacerbation J44.1 ; Diabetes E11.9 and Tobacco abuse Z72.0 [facility] [id number] [place] [address] 42927- 6860 Jun, [facility] [id number] [place] [address] 37336- 0221 Jun, [facility] [id number] [place] [address] 39845- 4227 May, [facility] [id number] [place] [address] 79162- 8979 May, [facility] [id number] [place] [address] 74540 -3252 17 May, 2017 [facility] [id number] [place] [address] 48527- 7841 16 May, 2017 [facility] [id number] [place] [address] 00078- 9546 15 May, 2017 [facility] [id number] [place] [address] 36112- 7345 14 May, 2017 Diarrhea, unspecified type R19.7 and Intractable cyclical vomiting with nausea G43.A1 [facility] [id number] [place] [address] 85531- 8172 May, [facility] [id number] [place] [address] 07173- 7429 05 May, 2017 [facility] [id number] [place] [address] 55195- 9610 Apr, COPD exacerbation J44.1 ; Esophageal candidiasis B37.81 ; Other acute gastritis with hemorrhage K29.01 and Acute posthemorrhagic anemia D62 [facility] [id number] [place] [address] 12949- 2535 Apr, Viral illness B34.9 and COPD exacerbation J44.1 [facility] [address] [address] Apr, Shortness of breath R06.02 and Pneumonia of both lower lobes due to infectious organism J18.9 [facility] [address] [address]34 [address] Mar, COPD with acute exacerbation J44.1 [place] [address] 28[address]- 7280 Mar, Chronic obstructive pulmonary disease with acute exacerbation J44.1 and Diabetes E11.9 [place] [address] 79894- 2514 Mar, [place] [address] 09115- 5801 Mar, [facility] [address] [address] Mar, COPD exacerbation J44.1 [place] [address] 67156- 8400 Mar, [place] [address] 82219- 0745 Mar, Migraine G43.909 ; Hypokalemia E87.6 and Type 2 diabetes mellitus without complications E11.9 [place] [address] 90109- 5439 Feb, [place] [address] 30943- 2281 Feb, [place] [address] 04422- 0264 Feb, Methamphetamine use disorder, moderate, 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 ; Major depressive disorder, recurrent, moderate F33.1 ; Anxiety disorder, unspecified F41.9 and Tobacco abuse Z72.0 [place] [id number] [place] [address] 25680- 5140 Jan, Major depressive disorder, recurrent, moderate F33.1 [place] [id number] [place] [address] 25675- 6703 Jan, [place] [id number] [place] [address] 13376- 1343 Jan, [place] [id number] [place] [address] 30105- 3210 Jan, Major depressive disorder, recurrent, moderate F33.1 [place] [id number] [place] [address] 26248- 9064 Jan, Major depressive disorder, recurrent, moderate F33.1 ; Anxiety disorder, unspecified F41.9 ; Methamphetamine use disorder, moderate, 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 and Tobacco abuse Z72.0 [place] [id number] [place] [address] 15628- 1320 Jan, [place] [id number] [place] [address] 25563- 8914 Jan, Chronic obstructive pulmonary disease with acute exacerbation J44.1 and Diabetes E11.9 [place] [id number] [place] [address] 60530- 8965 Jan, [place] [id number] [place] [address] 23220- 0688 Jan, [place] [id number] [place] [address] 39104- 2294 Dec, Acute respiratory failure with hypoxia J96.01 ; Chronic bronchitis, unspecified chronic bronchitis type J42 and Tobacco use Z72.0 [place] [id number] [place] [address] 49565- 3084 Dec, [facility] [address] [id number] Nov, Dental caries K02.9 and Dental examination Z01.20 [facility] [address] [place] [address] 79955- 1224 Nov, Major depressive disorder, recurrent, moderate F33.1 ; Anxiety disorder, unspecified F41.9 and 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 [facility] [id number] [place] [address] [id number] Oct, Dental examination Z01.20 [facility] [id number] [place] [address] 64954- 3690 Oct, [facility] [id number] [place] [address] 09429- 0321 Oct, Diabetes E11.9 and Thrush B37.0 [facility] [id number] [place] [address] 56326- 1766 Oct, [facility] [id number] [place] [address] 00437- 9255 Oct, [facility] [id number] [place] [address] 30441- 2101 Oct, [facility] [address] [place] [address] 32523- 5099 Sep, Major depressive disorder, recurrent, moderate F33.1 ; Anxiety disorder, unspecified F41.9 and Bipolar disorder, unspecified F31.9 [facility] [address] [place] [address] 90581- 5318 Sep, Acute exacerbation of chronic obstructive pulmonary disease (COPD) J44.1 and Migraine G43.909 [facility] [address] [place] [address] 47559- 6632 Sep, [facility] [id number] [place] [address] [phone] Sep, [facility] [id number], [place] [address]- 2516 Sep, Acute exacerbation of chronic obstructive pulmonary disease (COPD) J44.1 [facility] [address], [place] [address] Sep, Acute exacerbation of chronic obstructive pulmonary disease (COPD) J44.1 [facility] [address], [place] [address]- 4828 Aug, [facility] [address] [place] [address] 57698- 5306 Aug, Major depressive disorder, recurrent, moderate F33.1 ; Anxiety disorder, unspecified F41.9 and 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 [facility] [address], [place] [address]- 5492 Aug, Wheezing R06.2 ; Non morbid obesity due to excess calories E66.09 ; Migraine without aura and without status migrainosus, not intractable G43.009 and Tobacco abuse Z72.0 [facility] [address] [place] [address] [id number] Aug, 2016 Encounter for dental examination Z01.20 [facility] [id number], [place] [address]- 2160 02 Aug, 2016 Major depressive disorder, recurrent, moderate F33.1 ; Anxiety disorder, unspecified F41.9 and 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 [facility] [address], [place] [address]- 7571 July, [facility] [id number] [place] [address] 40501- 6198 July, [facility] [address], [place] [address]- 1803 July, [facility] [id number] [place] [address] 71440- 5266 July, Diabetes E11.9 [facility] [id number] [place] [address] 74307- 5499 Jun, Major depressive disorder, recurrent, moderate F33.1 [facility] [id number] [place] [address] 05616- 4711 Jun, Major depressive disorder, recurrent, moderate F33.1 ; 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 ; Generalized anxiety disorder F41.1 and Bipolar disorder, unspecified F31.9 [facility] [id number] [place] [address] 03893- 5031 Jun, Diabetes E11.9 ; Migraine G43.909 ; Thrush B37.0 and Wheezing R06.2 [facility] [id number] [place] [address] [id number] Jun, Dental examination Z01.20 [facility] [id number] [place] [address] 49649- 5617 Jun, [facility] [id number] [place] [address] 78249- 3675 Jun, Major depressive disorder, recurrent, moderate F33.1 ; Anxiety disorder, unspecified F41.9 and 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 [facility] [id number] [place] [address] 65040- 0639 Jun, [facility] [id number] [place] [address] 38417- 2856 Jun, Wheezing R06.2 [facility] [id number] [place] [address] [id number] Jun, Dental caries K02.9 [facility] [id number] [place] [address] 31745- 2315 Jun, Major depressive disorder, recurrent, moderate F33.1 ; Anxiety disorder, unspecified F41.9 and 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 [place] [address] [place] [address] 51226- 7213 Jun, RLQ abdominal pain R10.31 ; Diabetes E11.9 ; Obesity, unspecified obesity severity, unspecified obesity type E66.9 ; Wheezing R06.2 and Abnormal urinalysis R82.90 [place] [id number] [place] [address] 84514- 3536 May, [place] [address] 45789- 4897 May, Well woman exam Z01.419 ; Breast cancer screening Z12.39 ; Cervical cancer screening Z12.4 ; Urinary frequency R35.0 ; Edema, unspecified type R60.9 and Chronic constipation K59.09 [place] [id number] [place] [address] 54164- 1607 May, Major depressive disorder, recurrent, moderate F33.1 ; Anxiety disorder, unspecified F41.9 and 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 [facility] [id number] [place] [address] [id number] May, Dental examination Z01.20 [place] [id number] [place] [address] 40672- 7111 May, [place] [id number] [place] [address] 57883- 4550 May, [place] [id number] [place] [address] 63112- 2636 May, Chronic constipation K59.09 [place] [id number] [place] [address] 26360- 0793 Apr, [place] [id number] [place] [address] 35413- 1433 Apr, Major depressive disorder, recurrent, moderate F33.1 ; Anxiety disorder, unspecified F41.9 and 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 [place] [address], [place] [address]- 2736 Apr, [place] [id number] [place] [address] 54929- 9426 Mar, Major depressive disorder, recurrent, moderate F33.1 [place] [id number] [place] [address] 79315- 9272 Mar, Major depressive disorder, recurrent, moderate F33.1 ; Generalized anxiety disorder F41.1 and Bipolar I disorder, most recent episode depressed with anxious distress F31.30 [place] [address] [place] [address] 24207- 5692 Mar, Diabetes E11.9 ; Non morbid obesity due to excess calories E66.09 ; Breast cancer screening Z12.39 and Encounter for immunization Z23 [place] [id number] [place] [address] 67565- 7901 Mar, Major depressive disorder, recurrent, moderate F33.1 ; Anxiety disorder, unspecified F41.9 and 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 [place] [address] [place] [address] 46235- 1238 Mar, [place] [address] [place] [address] 40183- 2298 Feb, Major depressive disorder, recurrent, moderate F33.1 ; Anxiety disorder, unspecified F41.9 and 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 [place] [address], [place] [address]- 6387 Feb, [place] [id number] [place] [address] 98597- 5127 Feb, [place] [id number] [place] [address] 72245- 5541 Jan, Major depressive disorder, recurrent, moderate F33.1 ; Generalized anxiety disorder F41.1 and Bipolar disorder, current episode depressed, severe, without psychotic features F31.4 [facility] [address], [place] [address]- 2126 18 Jan, 2016 Major depressive disorder, recurrent, moderate F33.1 ; Anxiety disorder, unspecified F41.9 and 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 [facility] [address], [place] [address]- 4484 16 Jan, 2016 Bronchitis J40 [place] [id number] [place] [address] 886419- 8677 Jan, [place] [id number] [place] [address] 69543- 4804 Jan, [place] [id number] [place] [address] 12974- 6722 Jan, Elbow injury, right, initial encounter S59.901A ; Multiple contusions T14.8 and Cervical strain, acute, initial encounter S16.1XXA [place] [address] [place] [address] 73944- 8727 Dec, Major depressive disorder, recurrent, moderate F33.1 ; Generalized anxiety disorder F41.1 and Bipolar disorder with depression F31.30 [place] [address] [place] [address] 99595- 5623 Dec, [place] [address], [place] [address]- 1554 Dec, [place] [address], [place] [address]- 6704 Dec, [facility] [address], [place] [address]- 7944 Dec, [place] [address] [place] [address] 43666- 9823 Dec, Yeast infection B37.9 [facility] [address], [place] [address]- 8181 Dec, Pneumonia of both lungs due to methicillin resistant Staphylococcus aureus (MRSA), unspecified part of lung J15.212 and Benzodiazepine overdose, accidental or unintentional, subsequent encounter T42.4X[address]D [place] [address] [place] [address] 84897- 7297 Dec, [place] [address] [place] [address] 08873- 9812 Dec, [place] [id number] [place] [address] 84996- 6498 Dec, Knee pain, left M25.562 and Edema, unspecified type R60.9 [place] [id number] [place] [address] 61078- 4100 Dec, [place] [address] [place] [address] 33725- 7465 Dec, Anxiety disorder, unspecified F41.9 and Bipolar disorder, unspecified F31.9 [place] [address] [place] [address] 71966- 2066 Nov, Major depressive disorder, recurrent, moderate F33.1 ; Anxiety disorder, unspecified F41.9 and 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 [place] [address], [place] [address]- 5261 Nov, [place] [address] [place] [address] 22765- 8820 Nov, Migraine without aura and without status migrainosus, not intractable G43.009 [place] [id number] [place] [address] 54056- 7720 Nov, Migraine G43.909 [place] [address] [place] [address] 48353- 5204 Nov, [place] [address] [place] [address] 69270- 9269 Nov, Major depressive disorder, recurrent, moderate F33.1 ; Anxiety disorder, unspecified F41.9 and 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 [place] [id number] [place] [address] 54499- 8912 Oct, Chronic constipation K59.09 and Obesity, unspecified obesity severity, unspecified obesity type E66.9 [place] [id number] [place] [address] 35909- 1586 Oct, Obesity, unspecified obesity severity, unspecified obesity type E66.9 ; Chronic constipation K59.09 and Anxiety disorder, unspecified F41.9 [place] [id number] [place] [address] 79295- 8928 Oct, [place] [address] 71418- 4825 Sep, Diabetes E11.9 ; Edema, unspecified type R60.9 ; Varicose vein of leg I83.90 and Obesity, unspecified obesity severity, unspecified obesity type E66.9 [place] [id number] [place] [address] 93213- 5364 Sep, Edema, unspecified type R60.9 ; Diabetes E11.9 and Knee pain , left M25.562 [place] [id number] [place] [address] 48277- 1733 Sep, [place] [id number] [place] [address] 36448- 0501 Sep, [place] [id number] [place] [address] 75860- 2312 Sep, Major depressive disorder, recurrent, moderate F33.1 ; Generalized anxiety disorder F41.1 and Bipolar disorder, unspecified F31.9 [place] [id number] [place] [address] 61704- 9676 Aug, Chondromalacia of left knee M94.262 [place] [id number] [place] [address] 85870- 5958 Aug, Major depressive disorder, recurrent, moderate F33.1 ; Anxiety disorder, unspecified F41.9 and 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 [facility] [id number] [place] [address] 77204- 6105 Aug, [facility] [id number] [place] [address] 23011- 7850 06 Aug, 2015 Osteoarthritis of left knee M17.9 [facility] [id number] [place] [address] [phone] Aug, [facility] [id number] [place] [address] [phone] July, Major depressive disorder, recurrent, moderate F33.1 ; Anxiety disorder, unspecified F41.9 and 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 [facility] [id number] [place] [address] [phone] July, [facility] [id number] [place] [address] [phone] July, Chronic constipation K59.09 [facility] [id number] [place] [address] [phone] Jun, [facility] [id number] [place] [address] [phone] Jun, [facility] [id number] [place] [address] [id number]- [phone] 14 Jun, 2015 Osteoarthritis of left knee M17.9 [facility] [id number] [place] [address] 44040- 2839 Jun, [facility] [id number] [place] [address] 35073- 4630 Jun, Generalized anxiety disorder F41.1 ; Bipolar disorder, unspecified F31.9 and Major depressive disorder, recurrent, moderate F33.1 [facility] [id number] [place] [address] 83651- 1812 Jun, Migraine G43.909 [place] [id number] [place] [address] 90905- 2845 Jun, Left knee pain M25.562 ; Chronic constipation K59.09 ; Dry mouth R68.2 ; Yeast vaginitis B37.3 and Memory loss R41.3 [place] [address] 04355- 7290 Jun, [place] [address] 00317- 2936 May, [place] [address] 96401- 7107 May, [place] [address] 60108- 7817 May, [place] [address] 46066- 1070 May, [place] [address] 88344- 0900 May, Acute bronchitis with COPD J44.0 ; Knee pain, left M25.562 and Encounter for tobacco use cessation counseling Z71.[address] 60[address]- 2508 May, [address] 30321- 5097 Apr, Diabetes E11.9 ; TMJ (sprain of temporomandibular joint) S03.4XXA ; Tobacco abuse Z72.0 ; Migraine G43.909 and Anxiety F41.[address] 87547- 7296 Apr, Generalized anxiety disorder F41.1 and Bipolar disorder, unspecified F31.[address] 80333- 3402 Apr, Major depressive disorder, recurrent, moderate F33.1 ; Anxiety disorder, unspecified F41.9 and 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 [facility] [id number] [place] [address] 00031- 8408 04 Apr, 2015 [facility] [id number] [place] [address] 95581- 9469 Mar, [facility] [id number] [place] [address] 90318- 5493 Feb, [facility] [id number] [place] [address] 52473- 5764 Feb, Major depressive disorder, recurrent, moderate F33.1 ; Anxiety disorder, unspecified F41.9 and 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 [facility] [id number] [place] [address] 86364- 3583 Feb, [facility] [id number] [place] [address] 71944- 4618 Feb, Generalized anxiety disorder F41.1 and Bipolar disorder, unspecified F31.9 [facility] [id number] [place] [address] 81451- 1700 Jan, [facility] [id number] [place] [address] 85971- 5361 Jan, [facility] [id number] [place] [address] 29402- 2026 Jan, Bipolar disorder, unspecified F31.9 and Generalized anxiety disorder F41.1 [facility] [id number] [place] [address] 11483- 7927 Dec, [facility] [id number] [place] [address] 50024- 6218 14 Dec, 2014 Bipolar disorder, unspecified F31.9 and Generalized anxiety disorder F41.1 [facility] [id number] [place] [address] 74538- 2445 Dec, Generalized anxiety disorder F41.1 and Major depressive disorder, recurrent, moderate F33.1 [facility] [id number] [place] [address] 61939- 9099 Oct, Headache 784.0 ; Cough 786.2 ; Vomiting and diarrhea 787.03 and Dysuria 788.1 [facility] [id number] [place] [address] 96377- 8532 Aug, [facility] [address] 67662- 7115 Aug, Headache 784.0 and Shortness of breath 786.05 [facility] [address] 344106- 9301 Aug, [facility] [id number] [place] [address] 72800- 4720 Aug, Migraine 346.90 [facility] [address] 16791- 2327 Jun, [facility] [id number] [place] [address] 27893- 7051 Jun, [facility] [id number] [place] [address] 45492- 0563 May, [facility] [id number] [place] [address] 68047- 1815 May, [facility] [id number] [place] [address] 85466- 9836 May, [facility] [id number] [place] [address] 24485- 2456 May, [facility] [id number] [place] [address] 126792- 1042 May, [facility] [id number] [place] [address] 916001- 2236 May, [facility] [id number] [place] [address] 72924- 3268 Apr, 2014 [facility] [place] [facility] [address] [id number] [place] [address]- 4063 Apr, 2014 [facility] [place] [facility] [address] [id number] [place] [address]- 6426 Apr, 2014 [facility] [place] [facility] [address] [facility] [id number] [place] [address]- 7200 Apr, [facility] [place] [facility] [address] [id number] [place] [address]- 2848 Apr, [facility] [place] [facility] [address] [id number] [place] [address]- 9725 Mar, [facility] [place] [facility] [address] [id number] [place] [address]- 0915 Mar, [facility] [place] [facility] [address] [id number] [place] [address]- 8870 Mar, [facility] [place] [facility] [address] [id number] [place] [address]- 8173 Mar, [facility] [place] [facility] [address] [id number] [place] [address]- 7184 Feb, [facility] [place] [facility] [address] [id number] [place] [address]- 7487 Feb, [facility] [place] [facility] [address] [id number] [place] [address]- 9378 18 Feb, 2014 [facility] [place] [facility] [address] [id number] [place] [address]- 0376 18 Feb, 2014 [facility] [place] [facility] [address] [id number] [place] [address]- 8372 16 Feb, 2014 [facility] [place] [facility] [address] [id number] [place] [address]- 8803 16 Feb, 2014 [facility] [place] [facility] [address] [facility] [id number] [place] [address]- 5665 Feb, [facility] [place] [facility] [address] [id number] [place] [address]- 5110 Feb, [facility] [place] [facility] [address] [id number] [place] [address]- 5744 Feb, [facility] [place] [facility] [address] [id number] [place] [address]- 4000 Feb, [facility] [place] [facility] [address] [id number] [place] [address]- 8510 Feb, [facility] [place] [facility] [address] [id number] [place] [address]- 0939 Feb, [facility] [place] [facility] [address] [id number] [place] [address]- 8230 Jan, [facility] [place] [facility] [address] [id number] [place] [address]- 8807 Jan, [facility] [place] [facility] [address] [id number] [place] [address]- 9511 Dec, [facility] [place] [facility] [address] [id number] [place] [address]- 0787 Dec, [facility] [place] [facility] [address] [id number] [place] [address]- 8771 Dec, [facility] [place] [facility] [address] [id number] [place] [address]- 0131 Dec, [facility] [place] [facility] [address] [id number] [place] [address]- 5771 Dec, [facility] [place] [facility] [address] [id number] [place] [address]- 1783 Dec, [facility] [place] [facility] [address] [id number] [place] [address]- 9807 Sep, [facility] [place] [facility] [address] [id number] [place] [address]- 5180 Sep, [facility] [place] [facility] [address] [id number] [place] [address]- 4141 Sep, [facility] [place] [facility] [address] [id number] [place] [address]- 2129 Sep, 2013 [facility] [place] [facility] [address] [id number] [place] [address]- 0964 Sep, 2013 [facility] [place] [facility] [address] [id number] [place] [address]- 6317 Sep, 2013 [facility] [place] [facility] [address] [id number] [place] [address]- 4671 Sep, 2013 [facility] [place] [facility] [address] [id number] [place] [address]- 4175 Sep, 2013 [facility] [place] [facility] [address] [id number] [place] [address]- 8310 Sep, [facility] [place] [facility] [address] [id number] [place] [address]- 5681 Sep, 2013 [facility] [place] [facility] [address] [id number] [place] [address]- 6463 24 Aug, 2013 [facility] [place] [facility] [address] [id number] [place] [address]- 6307 Aug, [facility] [place] [facility] [address] [id number] [place] [address]- 0117 Aug, [facility] [place] [facility] [address] [id number] [place] [address]- 1614 Aug, [facility] [place] [facility] [address] [id number] [place] [address]- 1598 17 Aug, 2013 [facility] [place] [facility] [address] [id number] [place] [address]- 3600 Aug, [facility] [place] [facility] [address] [id number] [place] [address]- 9122 Aug, [facility] [place] [facility] [address] [id number] [place] [address]- 2139 Aug, [facility] [place] [facility] [address] [id number] [place] [address]- 0621 Aug, [facility] [place] [facility] [address] [id number] [place] [address]- 0234 Aug, [facility] [place] [facility] [address] [id number] [place] [address]- 8398 Aug, [facility] [place] [facility] [address] [id number] [place] [address]- 3874 Aug, [facility] [place] [facility] [address] [id number] [place] [address]- 6784 Aug, [facility] [place] [facility] [address] [id number] [place] [address]- 9757 July, [facility] [place] [facility] [address] [id number] [place] [address]- 3280 July, [facility] [place] [facility] [address] [id number] [place] [address]- 2539 July, [facility] [place] [facility] [address] [id number] [place] [address]- 2048 July, [facility] [place] [facility] [address] [id number] [place] [address]- 1089 July, [facility] [place] [facility] [address] [id number] [place] [address]- 7653 July, [facility] [place] [facility] [address] [id number] [place] [address]- 2260 July, [facility] [place] [facility] [address] [id number] [place] [address]- 1472 Jun, [facility] [place] [facility] [address] [id number] [place] [address]- 2152 Jun, [facility] [place] [facility] [address] [id number] [place] [address]- 6976 Jun, [facility] [place] [facility] [address] [id number] [place] [address]- 5925 Jun, [facility] [place] [facility] [address] [id number] [place] [address]- 0508 16 Jun, 2013 [facility] [place] [facility] [address] [id number] [place] [address]- 4192 08 Jun, 2013 [facility] [place] [facility] [address] [id number] [place] [address]- 2119 08 Jun, 2013 [facility] [place] [facility] [address] [id number] [place] [address]- 4764 17 May, 2013 [facility] [place] [facility] [address] [id number] [place] [address]- 9816 17 May, 2013 [facility] [place] [facility] [address] [id number] [place] [address]- 5588 14 May, 2013 [facility] [place] [facility] [address] [id number] [place] [address]- 5683 14 May, 2013 [facility] [place] [facility] [address] [id number] [place] [address]- 2435 13 May, 2013 [facility] [place] [facility] [address] [id number] [place] [address]- 4377 13 May, 2013 [facility] [place] [facility] [address] [id number] [place] [address]- 9294 10 May, 2013 [facility] [place] [facility] [address] [id number] [place] [address]- 1351 10 May, 2013 [facility] [place] [facility] [address] [id number] [place] [address]- 9629 07 May, 2013 [facility] [place] [facility] [address] [id number] [place] [address]- 3068 Apr, [facility] [place] [facility] [address] [id number] [place] [address]- 7745 Apr, [facility] [place] [facility] [address] [id number] [place] [address]- 7996 18 Apr, 2013 [facility] [place] [facility] [address] [id number] [place] [address]- 9361 Apr, [facility] [place] [facility] [address] [id number] [place] [address]- 8016 Apr, [facility] [place] [facility] [address] [id number] [place] 2636 Apr, [facility] [place] [facility] [address] [id number] [place] [address]- 2306 Apr, [facility] [place] [facility] [address] [id number] [place] [address]- 2840 Apr, [facility] [place] [facility] [address] [id number] [place] [address]- 4915 Apr, [facility] [place] [facility] [address] [id number] [place] [address]- 2418 Apr, [facility] [place] [facility] [address] [facility] [id number] [place] [address]- 3340 Mar, [facility] [place] [facility] [address] [id number] [place] [address]- 4535 Mar, [facility] [place] [facility] [address] [facility] [id number] [place] [address]- 1493 Mar, [facility] [place] [facility] [address] [facility] [id number] [place] [address]- 5909 Mar, [facility] [place] [facility] [address] [facility] [id number] [place] [address]- 1022 Mar, [facility] [place] [facility] [address] [id number], [place] [address]- 0199 Mar, [facility] [place] [facility] [address] [id number] [place] [address]- 7266 Mar, [facility] [place] [facility] [address] [facility] [id number] [place] [address]- 5077 Mar, [facility] [place] [facility] [address] [facility] [id number] [place] [address]- 6737 Feb, [facility] [place] [facility] [address] [id number] [place] [address]- 5459 Feb, [facility] [place] [facility] [address] [id number] [place] [address]- 6342 Jan, [facility] [place] [facility] [address] [id number] [place] [address]- 8331 Jan, [facility] [place] [facility] [address] [id number] [place] [address]- 6296 Jan, [facility] [place] [facility] [address] [id number] [place] [address]- 1897 Jan, [facility] [place] [facility] [address] [id number] [place] [address]- 9678 Jan, [facility] [place] [facility] [address] [id number] [place] [address]- 9219 Jan, [facility] [place] [facility] [address] [id number] [place] [address]- 7704 Jan, [facility] [place] [facility] [address] [id number] [place] [address]- 8539 Jan, [facility] [place] [facility] [address] [id number] [place] [address]- 8788 Dec, [facility] [place] [facility] [address] [id number] [place] [address]- 6851 Dec, [facility] [place] [facility] [address] [id number] [place] [address]- 5178 10 Dec, 2012 [facility] [place] [facility] [address] [id number] [place] [address]- 7365 20 Nov, 2012 [facility] [place] [facility] [address] [id number] [place] [address]- 3164 13 Nov, 2012 [facility] [place] [facility] [address] [id number] [place] [address]- 6217 12 Nov, 2012 [facility] [place] [facility] [address] [id number] [place] [address]- 9735 Nov, [facility] [place] [facility] [address] [id number] [place] [address]- 9870 Nov, [facility] [place] [facility] [address] [id number] [place] [address]- 1112 Nov, [facility] [place] [facility] [address] [id number] [place] [address]- 4754 Oct, [facility] [place] [facility] [address] [id number] [place] [address]- 6446 Oct, [facility] [place] [facility] [address] [id number] [place] [address]- 5610 Sep, [facility] [place] [facility] [address] [id number] [place] [address]- 5614 Sep, [facility] [place] [facility] [address] [id number] [place] [address]- 6760 Sep, [facility] [place] [facility] [address] [id number] [place] [address]- 7201 Sep, [facility] [place] [facility] [address] [id number] [place] [address]- 9098 Sep, [facility] [place] [facility] [address] [id number] [place] [address]- 7634 Sep, [facility] [place] [facility] [address] [id number], [place] [address]- 5566 Sep, [facility] [place] [facility] [address] [id number], [place] [address]- 9343 Aug, [facility] [place] [facility] [address] [id number] [place] [address]- 4296 Aug, [facility] [place] [facility] [address] [id number], [place] [address]- 0396 Aug, [facility] [place] [facility] [address] [id number] [place] [address]- 6493 Aug, [facility] [place] [facility] [address] [id number] [place] [address]- 6866 Aug, [facility] [address] [id number] [place] [address]- 8557 Aug, [facility] [address] [id number] [place] [address]- 8117 July, [facility] [address] [id number] [place] [address]- 3639 July, [facility] [address] [id number] [place] [address]- 2161 July, [facility] [address] [id number] [place] [address]- 4906 July, [facility] [address] [id number] [place] [address]- 4807 July, [facility] [address] [id number] [place] [address]- 1000 July, [facility] [address] [id number] [place] [address]- 6812 Jun, [facility] [address] [id number] [place] [address]- 8783 Jun, [facility] [address] [id number] [place] [address]- 7506 Jun, [facility] [address] [id number] [place] [address]- 3184 Jun, [facility] [address] [id number] [place] [address]- 6611 Jun, [facility] [place] [facility] [address] [id number] [place] [address]- 1473 Jun, [facility] [address] [id number] [place] [address]- 3674 Jun, [facility] [address] [id number] [place] [address]- 1828 May, [facility] [place] [facility] [address] [id number] [place] [address]- 9243 04 May, 2012 [facility] [place] [facility] [address] [id number] [place] [address]- 2716 26 Apr, 2012 [facility] [place] [facility] [address] [id number] [place] [address] 2546 Apr, [facility] [place] [facility] [address] [id number] [place] [address] 2546 Apr, [facility] [place] [facility] [address] [id number] [place] [address]- 6646 Apr, [facility] [place] [facility] [address] [id number] [place] [address]- 4194 12 Apr, 2012 [facility] [place] [facility] [address] [id number] [place] [address]- 6761 08 Apr, 2012 [facility] [place] [facility] [address] [id number] [place] [address]- 7910 07 Apr, 2012 [facility] [place] [facility] [address] [id number] [place] [address]- 1214 07 Apr, 2012 [facility] [place] [facility] [address] [id number] [place] [address]- 9514 06 Apr, 2012 [facility] [place] [facility] [address] [id number] [place] [address]- 4810 Apr, [facility] [place] [facility] [address] [id number] [place] [address] 2543 Apr, [facility] [place] [facility] [address] [id number] [place] [address] 2541 Mar, [facility] [place] [facility] [address] [id number] [place] [address] Mar, [facility] [place] [facility] [address] [id number] [place] [address] 2545 Mar, [facility] [place] [facility] [address] [id number] [place] [address] Mar, [facility] [address] [id number] [place] [address] Mar, [facility] [address] [id number] [place] [address] 15 Mar, 2012 [facility] [address] [id number] [place] [address] 15 Mar, 2012 [facility] [address] [id number] [place] [address]- [address] 15 Mar, 2012 [facility] [address] [id number] [place] [address]- [address] Mar, [facility] [address] [id number] [place] [address] Mar, [facility] [address] [id number] [place] [address] Mar, [facility] [address] [id number] [place] [address] Mar, [facility] [address] [id number] [place] [address] Mar, [facility] [address] [id number] [place] [address]- [address] Feb, [facility] [address] [id number] [place] [address]- 98[address] Feb, [facility] [address] [id number] [place] [address] Feb, [facility] [address] [id number] [place] [address] 1312 Feb, [facility] [address] [id number] [place] [address] Feb, [facility] [address] [id number] [place] [address] Feb, [facility] [place] [facility] [address] [id number] [place] [address] 4[address] Feb, [facility] [place] [facility] [address] [id number] [place] [address]- 3096 Feb, [facility] [place] [facility] [address] [id number] [place] [address]- 1207 Feb, [facility] [place] [facility] [address] [id number] [place] [address]- 7787 Feb, [facility] [place] [facility] [address] [id number] [place] [address] Feb, [facility] [place] [facility] [address] [id number] [place] [address]- 7814 Feb, [facility] [place] [facility] [address] [id number] [place] [address]- 9[address] Feb, [facility] [place] [facility] [address] [id number] [place] [address]- 77[address] Feb, [facility] [place] [facility] [address] [id number] [place] [address]- 90[address] Feb, [facility] [place] [facility] [address] [facility] [id number], [place] [address] Jan, [facility] [place] [facility] [address] [id number], [place] [address] Jan, [facility] [place] [facility] [address] [id number], [place] [address]- [address] Jan, [facility] [place] [facility] [address] [id number], [place] [address] Jan, [facility] [place] [facility] [address] [id number], [place] [address]- 1483 Dec, [facility] [place] [facility] [address] [id number], [place] [address] Dec, [facility] [place] [facility] [address] [id number], [place] [address]- [address] Dec, [facility] [place] [facility] [address] [id number] [place] [address] 69[address] Dec, 2011 [facility] [place] [facility] [address] [id number], [place] [address] Dec, [facility] [place] [facility] [address] [facility] [id number] [place] [address] Dec, [facility] [place] [facility] [address] [id number], [place] [address] 16 Dec, 2011 [facility] [place] [facility] [address] [id number] [place] [address], [place] [address] 16 Dec, 2011 [facility] [place] [facility] [address] [facility] [id number] [place] [address]- [address] 07 Dec, 2011 [facility] [place] [facility] [address] [facility] [id number], [place] [address]- [address] 04 Dec, 2011 [facility] [place] [facility] [address] [facility] [id number], [place] [address]- [address] 03 Dec, 2011 [facility] [place] [facility] [address] [facility] [id number], [place] [address]- [address] 25 Sep, 2011 [facility] [place] [facility] [address] [facility] [id number], [place] [address]- [address] 24 Sep, 2011 [facility] [place] [facility] [address] [facility] [id number], [place] [address]- [address] 20 Sep, 2011 [facility] [place] [facility] [address] [facility] [id number], [place] [address]- 2549 19 Sep, 2011 [facility] [place] [facility] [address] [id number], [place] [address]- [address] 17 Sep, 2011 [facility] [place] [facility] [address] [facility] [id number], [place] [address]- 1126 16 Sep, 2011 [facility] [place] [facility] [address] [facility] [id number], [place] [address] 4900 14 Sep, 2011 [facility] [place] [facility] [address] [id number] [place] [address]- [address] 13 Sep, 2011 [facility] [place] [facility] [address] [id number] [place] [address] 12 Sep, 2011 [facility] [place] [facility] [address] [id number] [place] [address] 2546 07 Sep, 2011 [facility] [facility] [address] [id number] [place] [address] 06 Sep, 2011 [facility] [place] [facility] [address] [id number] [place] [address]46 06 Sep, 2011 [facility] [place] [facility] [address] [id number] [place] [address] 05 Nov, 2011 [facility] [place] [facility] [address] [id number] [place] [address] 29 Oct, 2011 [facility] [place] [facility] [address] [id number] [place] [address] 29 Oct, 2011 [facility] [place] [facility] [address] [id number] [place] [address] 2544 Oct, [facility] [place] [facility] [address] [id number] [place] [address] 2541 Oct, [facility] [place] [facility] [address] [id number] [place] [address] Oct, [facility] [place] [facility] [address] [id number] [place] [address] 2548 Oct, [facility] [place] [facility] [address] [id number] [place] [address] 2544 Oct, [facility] [place] [facility] [address] [id number] [place] [address] 2546 16 Oct, 2011 [facility] [place] [facility] [address] [id number] [place] [address] 15 Oct, 2011 [facility] [place] [facility] [address] [id number] [place] [address] 39[address] Oct, [facility] [place] [facility] [address] [id number] [place] [address] Oct, [facility] [place] [facility] [address] [id number] [place] [address] Sep, [facility] [place] [facility] [address] [id number] [place] [address] Sep, [facility] [place] [facility] [address] [id number] [place] [address] Sep, [facility] [place] [facility] [address] [id number] [place] [address] Sep, [facility] [place] [facility] [address] [id number] [place] [address] Sep, [facility] [place] [facility] [address] [id number] [place] [address] Sep, [facility] [place] [facility] [address] [id number] [place] [address] Aug, [facility] [place] [facility] [address] [id number] [place] [address] July, [facility] [place] [facility] [address] [id number] [place] [address] July, [facility] [place] [address] [id number] [place] [address] 43[address] Jun, [facility] [place] [address] [id number] [place] [address] Jun, [facility] [place] [facility] [address] [id number] [place] [address] Jun, [facility] [place] [facility] [address] [id number] [place] [address]- [address]83 Jun, [facility] [place] [address] [id number] [place] [address] 58[address] Jun, [facility] [place] [facility] [address] [id number] [place] [address] 6272 10 Jun, 2011 [facility] [address] [id number] [place] [address] 6499 09 Jun, 2011 [facility] [place] [address] [id number] [place] [address] 08 Jun, 2011 [facility] [place] [facility] [address] [id number] [place] [address] 8196 03 Jun, 2011 [facility] [place] [address] [id number] [place] [address] 6148 02 Jun, 2011 [facility] [place] [address] [id number] [place] [address]- 7221 02 Jun, 2011 [facility] [place] [address] [id number] [place] [address] 2047 19 May, 2011 [facility] [address] [id number] [place] [address]145 16 May, 2011 [facility] [address] [id number] [place] [address] 0036 14 May, 2011 [facility] [place] [facility] [address] [id number] [place] [address] 6048 06 May, 2011 [facility] [address] [facility] [id number] [place] [address] 3148 28 Apr, 2011 [facility] [place] [address] [id number] [place] [address]176 28 Apr, 2011 [facility] [facility] [address] [facility] [id number] [place] [address] 8589 27 Apr, 2011 [facility] [address] [id number] [place] [address] 23 Apr, 2011 [facility] [address] [facility] [id number] [place] [address]142 23 Apr, 2011 [facility] [address] [facility] [id number] [place] [address]859 Apr, [facility] [address] [id number] [place] [address] Apr, [facility] [address] [id number] [place] [address] 2088 Apr, [facility] [address] [id number] [place] [address] 8048 Mar, [facility] [address] [id number] [place] [address] 2825 Mar, [facility] [address] [id number] [place] [address] 49[address] Mar, [facility] [address] [id number] [place] [address] 77[address] Mar, [facility] [address] [id number] [place] [address] 2636 Mar, [facility] [address] [id number] [place] [address]- 1778 Mar, [facility] [place] [facility] [address] [id number] [place] [address]- [address]572 Mar, [facility] [address] [id number] [place] [address]- 488[address] Mar, [facility] [address] [id number] [place] [address] 3747 Mar, [facility] [address] [id number], [place] [address] Mar, [facility] [address] [id number] [place] [address] 8053 Mar, [facility] [address] [id number] [place] [address]- 4005 Mar, [facility] [address] [id number] [place] [address]- 8008 Mar, [facility] [address] [id number] [place] [address] 3578 Mar, [facility] [address] [id number] [place] [address] 4116 Mar, [facility] [address] [id number] [place] [address]- 68[address] Mar, [facility] [address] [id number] [place] [address]- 5182 Feb, [facility] [address] [id number] [place] [address] 4788 Feb, [facility] [address] [id number] [place] [address] 4524 Feb, [facility] [address] [id number] [place] [address] 9778 Jan, [facility] [address] [id number] [place] [address]- 3988 Jan, [facility] [address] [id number] [place] [address]- 4490 Jan, [facility] [address] [id number] [place] [address]- 3239 Dec, [facility] [address] [id number] [place] [address]- 8413 Dec, [facility] [address] [id number] [place] [address]- 1469 16 Nov, 2010 [facility] [address] [id number] [place] [address]- 5695 Oct, [facility] [address] [id number] [place] [address] 4393 Oct, [facility] [address] [id number] [place] [address] Oct, [facility] [address] [id number] [place] [address] Sep, [facility] [address] [facility] [id number] [place] [address] Apr, [facility] [address] [facility] [id number] [place] [address]- 9138 Feb, [facility] [address] [facility] [id number] [place] [address]- 9514 Jan, IMMUNIZATIONS No Known Immunizations SOCIAL HISTORY Never Assessed REASON FOR VISIT PALS IN-[facility] PLAN OF CARE VITAL SIGNS MEDICATIONS Unknown [...] COPD exacerbation, Asthma-[facility] 09/21/16 Hospitalization History COPD-[facility] 12/30/2016 Hospitalization History [facility] and [facility]-last around 2006 or so. Hospitalization History for COPD x2 Mar 2017 Hospitalization History Upper GI bleed at apr 2017 Hospitalization History [facility]- COPD Exacerbation, diarrhea 05/23/2017 Hospitalization History COPD exacerbation-[facility] 06/13/17 Hospitalization History [facility] 09/09/2017
--- OUTSIDE RECORDS SUMMARY | 2017-11-19 13:18 | XMS REPORT ---
Author Author ALIZA CARTER [facility] Address [address] [place] [address] Care Team Providers Care Chief Compliance Officer Name Role Phone ALIZA CARTER Unavailable PROBLEMS Type Condition ICD9-CM Code NZE46-HZ Code Onset Dates Condition Status SNOMED Code Problem Bipolar disorder with depression F31.30 Active 06839680 Problem Other emphysema J43.8 Active 57109128 Problem Migraine without aura and without status migrainosus, not intractable G43.009 Active 246348380 Problem Anxiety F41.9 Active 71958025 Problem COPD with exacerbation J44.1 Active 641611506 Problem Methamphetamine use disorder, moderate, 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 Active 17904427 Problem Chronic bronchitis, unspecified chronic bronchitis type J42 Active 60213860 Problem Intractable cyclical vomiting with nausea G43.A1 Active 63846486 Problem Diabetes E11.9 Active 611268673 Problem 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 Active Problem Tobacco abuse Z72.0 Active 24963825 Problem Examination of eyes and vision V72.0 Active 860827657 Problem Chronic constipation K59.09 Active 357564166 Problem Memory loss R41.3 Active 21865560 Problem Migraine G43.909 Active 74851573 Problem Bipolar disorder, unspecified F31.9 Active 18610168 Problem TMJ (sprain of temporomandibular joint) S03.4XXA Active 69923628 Problem Generalized anxiety disorder F41.1 Active 89015920 ALLERGIES No Information ENCOUNTERS Encounter Location Date Diagnosis [facility] [address] [address] Oct, [facility] [address] [address] Oct, [facility] [address] [address] 9164 Oct, [facility] [address] [address] 8[address] Oct, [facility] [id number] [place] [address] 79577- 2353 Oct, Thrush B37.0 [facility] [address] [address] Sep, COPD with exacerbation J44.1 and Anxiety F41.9 [facility] [id number] [address] 9[address] Sep, [facility] [id number] [place] [address] 88620- 5286 Sep, [facility] [id number] [place] [address] 10240- 4901 Sep, [facility] [id number] [place] [address] 72900- 9137 Sep, Acute congestive heart failure, unspecified heart failure type I50.9 and Anxiety disorder, unspecified F41.9 [facility] [id number] [place] [address] 50528- 4387 Sep, Heart failure, unspecified HF chronicity, unspecified heart failure type I50.9 [facility] [address] [address] 78[address] Sep, [facility] [address] [address] 76[address] Aug, Chronic obstructive pulmonary disease with acute exacerbation J44.1 [facility] [address] [address] 6730 Aug, [facility] [address] [address] Aug, [facility] [address] [address]- 3542 July, [facility] [address] [address] 3490 July, [facility] [id number] [place] [address] 00593- 7721 July, Diabetes E11.9 and Chronic obstructive pulmonary disease with acute exacerbation J44.1 [facility] [id number] [place] [address] 88608- 9836 Jun, Chronic obstructive pulmonary disease with acute exacerbation J44.1 ; Diabetes E11.9 and Tobacco abuse Z72.0 [facility] [id number] [place] [address] 09559- 2389 Jun, [facility] [id number] [place] [address] 33904- 0982 Jun, [facility] [id number] [place] [address] 38367- 6447 May, [facility] [id number] [place] [address] 32461- 1289 May, [facility] [id number] [place] [address] 56352 -9275 17 May, 2017 [facility] [id number] [place] [address] 94233- 8040 16 May, 2017 [facility] [id number] [place] [address] 26778- 8962 15 May, 2017 [facility] [id number] [place] [address] 84885- 4222 14 May, 2017 Diarrhea, unspecified type R19.7 and Intractable cyclical vomiting with nausea G43.A1 [facility] [id number] [place] [address] 89657- 8426 May, [facility] [id number] [place] [address] 24743- 9053 05 May, 2017 [facility] [id number] [place] [address] 87363- 5476 Apr, COPD exacerbation J44.1 ; Esophageal candidiasis B37.81 ; Other acute gastritis with hemorrhage K29.01 and Acute posthemorrhagic anemia D62 [facility] [id number] [place] [address] 26903- 7464 Apr, Viral illness B34.9 and COPD exacerbation J44.1 [facility] [address] [address] -[address]44 Apr, Shortness of breath R06.02 and Pneumonia of both lower lobes due to infectious organism J18.9 [facility] [address] 87[address] -[address]8 Mar, COPD with acute exacerbation J44.1 [place] [facility] [address] 49801- 0159 Mar, Chronic obstructive pulmonary disease with acute exacerbation J44.1 and Diabetes E11.9 [place] [facility] [address] 04288- 0799 Mar, [facility] [address] 88735- 9087 Mar, [facility] [address] 09866 -8514 Mar, COPD exacerbation J44.1 [place] [address] 65290- 4442 Mar, [place] [address] 10685- 7887 Mar, Migraine G43.909 ; Hypokalemia E87.6 and Type 2 diabetes mellitus without complications E11.9 [place] [address] 34516- 2995 Feb, [place] [address] 52468- 0161 Feb, [facility] [facility] [address] [place] [address]- 3960 Feb, Methamphetamine use disorder, moderate, 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 ; Major depressive disorder, recurrent, moderate F33.1 ; Anxiety disorder, unspecified F41.9 and Tobacco abuse Z72.0 [facility] [place] [id number] [place] [address] 51505- 7075 30 Jan, 2017 Major depressive disorder, recurrent, moderate F33.1 [place] [address] 81029- 5336 Jan, [place] [address] 96376- 7387 Jan, [place] [address] 86993- 2696 Jan, Major depressive disorder, recurrent, moderate F33.1 [place] [address] 73699- 1294 Jan, Major depressive disorder, recurrent, moderate F33.1 ; Anxiety disorder, unspecified F41.9 ; Methamphetamine use disorder, moderate, 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 and Tobacco abuse Z72.0 [place] [address] 93181- 0699 Jan, [facility] [id number] [place] [address] 49329- 8221 Jan, Chronic obstructive pulmonary disease with acute exacerbation J44.1 and Diabetes E11.9 [facility] [place] [id number] [place] [address] 08217- 8415 Jan, [facility] [id number] [place] [address] 18940- 9259 Jan, [facility] [place] [id number] [place] [address] 16270- 5758 Dec, Acute respiratory failure with hypoxia J96.01 ; Chronic bronchitis, unspecified chronic bronchitis type J42 and Tobacco use Z72.0 [place] [address] [place] [address]- 3059 Dec, [facility] [id number] [place] [address] [id number] Nov, Dental caries K02.9 and Dental examination Z01.20 [facility] [id number] [place] [address] 14814- 8380 Nov, Major depressive disorder, recurrent, moderate F33.1 ; Anxiety disorder, unspecified F41.9 and 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 [facility] [id number] [place] [address] [id number] Oct, Dental examination Z01.20 [facility] [address] 62238- 4955 Oct, [facility] [id number] [place] [address] 75604- 2243 Oct, Diabetes E11.9 and Thrush B37.0 [facility] [id number] [place] [address] 83538- 3468 Oct, [facility] [id number] [place] [address] 59198- 6227 Oct, [facility] [id number] [place] [address] 38391- 3215 Oct, [facility] [id number] [place] [address] 40391- 4874 Sep, Major depressive disorder, recurrent, moderate F33.1 ; Anxiety disorder, unspecified F41.9 and Bipolar disorder, unspecified F31.9 [facility] [id number] [place] [address] 67469- 5289 Sep, Acute exacerbation of chronic obstructive pulmonary disease (COPD) J44.1 and Migraine G43.909 [facility] [id number] [place] [address] 77560- 0208 Sep, [facility] [id number] [place] [address] [id number] Sep, [facility] [address] [address]- 4725 Sep, Acute exacerbation of chronic obstructive pulmonary disease (COPD) J44.1 [facility] [address] [address] Sep, Acute exacerbation of chronic obstructive pulmonary disease (COPD) J44.1 [facility] [address] [address]- 6885 Aug, [facility] [id number] [place] [address] 68731- 8407 Aug, Major depressive disorder, recurrent, moderate F33.1 ; Anxiety disorder, unspecified F41.9 and 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 [facility] [id number] [place] [address] 00527- 1243 Aug, Wheezing R06.2 ; Non morbid obesity due to excess calories E66.09 ; Migraine without aura and without status migrainosus, not intractable G43.009 and Tobacco abuse Z72.0 [facility] [id number] [place] [address] [id number] Aug, 2016 Encounter for dental examination Z01.20 [facility] [id number] [place] [address] 26972- 5225 02 Aug, 2016 Major depressive disorder, recurrent, moderate F33.1 ; Anxiety disorder, unspecified F41.9 and 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 [facility] [address] [address]- 1878 July, [facility] [id number] [place] [address] 78211- 7693 July, [facility] [address] [address]- 8463 July, [facility] [id number] [place] [address] 50597- 7256 July, Diabetes E11.9 [facility] [id number] [place] [address] 260480- 9446 Jun, Major depressive disorder, recurrent, moderate F33.1 [facility] [id number] [place] [address] 46529- 0286 Jun, Major depressive disorder, recurrent, moderate F33.1 ; 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 ; Generalized anxiety disorder F41.1 and Bipolar disorder, unspecified F31.9 [facility] [id number] [place] [address] 29656- 2592 Jun, Diabetes E11.9 ; Migraine G43.909 ; Thrush B37.0 and Wheezing R06.2 [facility] [id number] [place] [address] [id number] Jun, Dental examination Z01.20 [facility] [id number] [place] [address] 27760- 9323 Jun, [facility] [id number] [place] [address] 91083- 5016 Jun, Major depressive disorder, recurrent, moderate F33.1 ; Anxiety disorder, unspecified F41.9 and 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 [facility] [id number] [place] [address] 93290- 0482 Jun, [facility] [id number] [place] [address] 94005- 9961 Jun, Wheezing R06.2 [facility] [id number] [place] [address] [id number] Jun, Dental caries K02.9 [facility] [id number] [place] [address] 73457- 0066 Jun, Major depressive disorder, recurrent, moderate F33.1 ; Anxiety disorder, unspecified F41.9 and 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 [place] [id number] [place] [address] 87710- 7551 Jun, RLQ abdominal pain R10.31 ; Diabetes E11.9 ; Obesity, unspecified obesity severity, unspecified obesity type E66.9 ; Wheezing R06.2 and Abnormal urinalysis R82.90 [facility] [id number] [place] [address] 24093- 4822 May, [facility] [address] 073467- 0453 May, Well woman exam Z01.419 ; Breast cancer screening Z12.39 ; Cervical cancer screening Z12.4 ; Urinary frequency R35.0 ; Edema, unspecified type R60.9 and Chronic constipation K59.09 [place] [id number] [place] [address] 20112- 2593 May, Major depressive disorder, recurrent, moderate F33.1 ; Anxiety disorder, unspecified F41.9 and 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 [facility] [id number] [place] [address] [id number] May, Dental examination Z01.20 [facility] [place] [id number] [place] [address] 38959- 5622 May, [place] [id number] [place] [address] 72645- 4346 May, [facility] [id number] [place] [address] 41493- 3855 May, Chronic constipation K59.09 [facility] [place] [id number] [place] [address] 60727- 3571 Apr, [place] [id number] [place] [address] 84993- 6820 Apr, Major depressive disorder, recurrent, moderate F33.1 ; Anxiety disorder, unspecified F41.9 and 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 [facility] [address] [address]- 5072 02 Apr, 2016 [facility] [id number] [place] [address] 42067- 5680 Mar, Major depressive disorder, recurrent, moderate F33.1 [facility] [id number] [place] [address] 65106- 6267 Mar, Major depressive disorder, recurrent, moderate F33.1 ; Generalized anxiety disorder F41.1 and Bipolar I disorder, most recent episode depressed with anxious distress F31.30 [facility] [place] [id number] [place] [address] 41123- 8947 Mar, Diabetes E11.9 ; Non morbid obesity due to excess calories E66.09 ; Breast cancer screening Z12.39 and Encounter for immunization Z23 [facility] [id number] [place] [address] 63502- 8139 Mar, Major depressive disorder, recurrent, moderate F33.1 ; Anxiety disorder, unspecified F41.9 and 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 [place] [id number] [place] [address] 20555- 2515 Mar, [place] [id number] [place] [address] 24916- 7824 Feb, Major depressive disorder, recurrent, moderate F33.1 ; Anxiety disorder, unspecified F41.9 and 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 [facility] [id number] [place] [address] 60556- 4160 Feb, [place] [id number] [place] [address] 06846- 0014 Feb, [place] [id number] [place] [address] 06009- 7879 Jan, Major depressive disorder, recurrent, moderate F33.1 ; Generalized anxiety disorder F41.1 and Bipolar disorder, current episode depressed, severe, without psychotic features F31.4 [facility] [id number] [address]- 3397 18 Jan, 2016 Major depressive disorder, recurrent, moderate F33.1 ; Anxiety disorder, unspecified F41.9 and 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 [facility] [address] [address]- 2671 16 Jan, 2016 Bronchitis J40 [facility] [id number] [place] [address] 23899- 6694 Jan, [facility] [id number] [place] [address] 48380- 1017 Jan, [place] [id number] [place] [address] 07644- 3169 Jan, Elbow injury, right, initial encounter S59.901A ; Multiple contusions T14.8 and Cervical strain, acute, initial encounter S16.1XXA [place] [id number] [place] [address] 50970- 6545 Dec, Major depressive disorder, recurrent, moderate F33.1 ; Generalized anxiety disorder F41.1 and Bipolar disorder with depression F31.30 [facility] [id number] [place] [address] 88584- 7752 Dec, [facility] [address] [address]- 8519 Dec, [facility] [address] [address]- 2114 Dec, [facility] [address] [address]- 5451 Dec, [facility] [id number] [place] [address] 32316- 3965 Dec, Yeast infection B37.9 [facility] [address] [address]- 1893 Dec, Pneumonia of both lungs due to methicillin resistant Staphylococcus aureus (MRSA), unspecified part of lung J15.212 and Benzodiazepine overdose, accidental or unintentional, subsequent encounter T42.4X1D [place] [address] [address]- 4499 Dec, [facility] [address] [address]- 1609 Dec, [facility] [id number] [place] [address] 56285- 1727 Dec, Knee pain, left M25.562 and Edema, unspecified type R60.9 [facility] [id number] [place] [address] 09036- 2685 Dec, [place] [address] [place] [address] 13370- 5720 Dec, Anxiety disorder, unspecified F41.9 and Bipolar disorder, unspecified F31.9 [facility] [address] [place] [address] 39721- 2577 Nov, Major depressive disorder, recurrent, moderate F33.1 ; Anxiety disorder, unspecified F41.9 and 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 [facility] [address] [address]- 2996 Nov, [facility] [address] [place] [address] 34549- 8140 Nov, Migraine without aura and without status migrainosus, not intractable G43.009 [facility] [place] [id number] [place] [address] 13299- 6090 Nov, Migraine G43.909 [facility] [place] [address] [place] [address] 69996- 8352 Nov, [facility] [id number] [place] [address] 98586- 9419 Nov, Major depressive disorder, recurrent, moderate F33.1 ; Anxiety disorder, unspecified F41.9 and 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 [facility] [id number] [place] [address] 84486- 6721 Oct, Chronic constipation K59.09 and Obesity, unspecified obesity severity, unspecified obesity type E66.9 [place] [id number] [place] [address] 50620- 1840 Oct, Obesity, unspecified obesity severity, unspecified obesity type E66.9 ; Chronic constipation K59.09 and Anxiety disorder, unspecified F41.9 [place] [id number] [place] [address] 09821- 2104 Oct, [place] [address] 21693- 9614 Sep, Diabetes E11.9 ; Edema, unspecified type R60.9 ; Varicose vein of leg I83.90 and Obesity, unspecified obesity severity, unspecified obesity type E66.9 [place] [id number] [place] [address] 32979- 5050 Sep, Edema, unspecified type R60.9 ; Diabetes E11.9 and Knee pain , left M25.562 [place] [id number] [place] [address] 78066- 5024 Sep, [place] [id number] [place] [address] 06315- 1969 Sep, [place] [id number] [place] [address] 11997- 3026 Sep, Major depressive disorder, recurrent, moderate F33.1 ; Generalized anxiety disorder F41.1 and Bipolar disorder, unspecified F31.9 [place] [id number] [place] [address] 43509- 8887 Aug, Chondromalacia of left knee M94.262 [place] [id number] [place] [address] 38655- 0039 Aug, Major depressive disorder, recurrent, moderate F33.1 ; Anxiety disorder, unspecified F41.9 and 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 [facility] [id number] [place] [address] 19143- 5688 Aug, [facility] [id number] [place] [address] 03130- 7829 06 Aug, 2015 Osteoarthritis of left knee M17.9 [facility] [id number] [place] [address] [id number] [phone] Aug, [facility] [id number] [place] [address] [id number] July, Major depressive disorder, recurrent, moderate F33.1 ; Anxiety disorder, unspecified F41.9 and 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 [facility] [id number] [place] [address] [phone] July, [facility] [id number] [place] [address] 44534- 8233 July, Chronic constipation K59.09 [facility] [id number] [place] [address] 11738- 7944 Jun, [facility] [id number] [place] [address] 29005- 9068 Jun, [facility] [id number] [place] [address] 21375- 7771 14 Jun, 2015 Osteoarthritis of left knee M17.9 [facility] [id number] [place] [address] 52960- 7099 Jun, [facility] [id number] [place] [address] 35032- 1626 Jun, Generalized anxiety disorder F41.1 ; Bipolar disorder, unspecified F31.9 and Major depressive disorder, recurrent, moderate F33.1 [facility] [id number] [place] [address] 12085- 7487 Jun, Migraine G43.909 [place] [id number] [place] [address] 02824- 2155 Jun, Left knee pain M25.562 ; Chronic constipation K59.09 ; Dry mouth R68.2 ; Yeast vaginitis B37.3 and Memory loss R41.3 [place] [address] 18209- 4040 Jun, [place] [address] 97624- 2720 May, [place] [address] 14376- 9480 May, [place] [address] 84004- 0963 May, [address] 30976- 7892 May, [place] [address] 70388- 5031 May, Acute bronchitis with COPD J44.0 ; Knee pain, left M25.562 and Encounter for tobacco use cessation counseling Z71.6 [address] [address] [id number] [place] [address] 21200- 7430 May, [address] [id number] [place] [address] 26815- 1082 Apr, Diabetes E11.9 ; TMJ (sprain of temporomandibular joint) S03.4XXA ; Tobacco abuse Z72.0 ; Migraine G43.909 and Anxiety F41.[address] 44445- 5677 Apr, Generalized anxiety disorder F41.1 and Bipolar disorder, unspecified F31.9 [address] [id number] [place] [address] 00827- 6997 Apr, Major depressive disorder, recurrent, moderate F33.1 ; Anxiety disorder, unspecified F41.9 and 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 [facility] [id number] [place] [address] 92307- 3666 04 Apr, 2015 [facility] [id number] [place] [address] 17820- 2986 Mar, [facility] [id number] [place] [address] 10881- 9351 Feb, [facility] [id number] [place] [address] 67017- 4272 14 Feb, 2015 Major depressive disorder, recurrent, moderate F33.1 ; Anxiety disorder, unspecified F41.9 and 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 [facility] [id number] [place] [address] 96036- 4315 Feb, [facility] [id number] [place] [address] 62519- 2652 Feb, Generalized anxiety disorder F41.1 and Bipolar disorder, unspecified F31.9 [facility] [id number] [place] [address] 46990- 9329 Jan, [facility] [id number] [place] [address] 05569- 9504 Jan, [facility] [id number] [place] [address] 52679- 4129 Jan, Bipolar disorder, unspecified F31.9 and Generalized anxiety disorder F41.1 [facility] [id number] [place] [address] 70537- 2026 Dec, [facility] [id number] [place] [address] 74840- 0539 14 Dec, 2014 Bipolar disorder, unspecified F31.9 and Generalized anxiety disorder F41.1 [facility] [id number] [place] [address] 78499- 8310 Dec, Generalized anxiety disorder F41.1 and Major depressive disorder, recurrent, moderate F33.1 [facility] [id number] [place] [address] 00443- 8132 Oct, Headache 784.0 ; Cough 786.2 ; Vomiting and diarrhea 787.03 and Dysuria 788.1 [facility] [address] 01174- 7690 Aug, [facility] [address] 15376- 9282 Aug, Headache 784.0 and Shortness of breath 786.05 [facility] [address] 58063- 5519 Aug, [facility] [address] 60688- 2076 Aug, Migraine 346.90 [facility] [address] 59891- 9685 Jun, [facility] [id number] [place] [address] 47716- 7998 Jun, [facility] [id number] [place] [address] 63092- 2402 May, [facility] [id number] [place] [address] 03793- 3450 May, [facility] [id number] [place] [address] 74725- 9044 May, [facility] [id number] [place] [address] 03649- 2359 May, [facility] [address] 45182- 1245 May, [facility] [id number] [place] [address] 62857- 9732 May, [facility] [id number] [place] [address] 37059- 6139 Apr, 2014 [facility] [place] [facility] [address] [id number] [place] [address]- 4593 Apr, 2014 [facility] [place] [facility] [address] [id number] [place] [address]- 3849 Apr, 2014 [facility] [place] [facility] [address] [facility] [id number] [place] [address]- 4848 Apr, 2014 [facility] [place] [facility] [address] [id number] [place] [address]- 0855 Apr, 2014 [facility] [place] [facility] [address] [id number] [place] [address]- 1654 Mar, [facility] [place] [facility] [address] [id number] [place] [address]- 2829 Mar, [facility] [place] [facility] [address] [id number] [place] [address]- 5601 Mar, [facility] [place] [facility] [address] [id number] [place] [address]- 2274 Mar, [facility] [place] [facility] [address] [id number] [place] [address]- 7597 Feb, [facility] [place] [facility] [address] [id number] [place] [address]- 8586 Feb, [facility] [place] [facility] [address] [id number] [place] [address]- 3051 18 Feb, 2014 [facility] [place] [facility] [address] [id number] [place] [address]- 3554 18 Feb, 2014 [facility] [place] [facility] [address] [id number] [place] [address]- 9489 16 Feb, 2014 [facility] [place] [facility] [address] [id number] [place] [address]- 1456 16 Feb, 2014 [facility] [place] [facility] [address] [facility] [id number] [place] [address]- 8593 11 Feb, 2014 [facility] [place] [facility] [address] [id number] [place] [address]- 9664 Feb, [facility] [place] [facility] [address] [id number] [place] [address]- 5793 Feb, [facility] [place] [facility] [address] [id number] [place] [address]- 2744 Feb, [facility] [place] [facility] [address] [id number] [place] [address]- 4563 Feb, [facility] [place] [facility] [address] [id number] [place] [address]- 7964 Feb, [facility] [place] [facility] [address] [id number] [place] [address]- 4675 Jan, [facility] [place] [facility] [address] [id number] [place] [address]- 6275 Jan, [facility] [place] [facility] [address] [id number] [place] [address]- 8481 Dec, [facility] [place] [facility] [address] [id number] [place] [address]- 2863 Dec, [facility] [place] [facility] [address] [id number] [place] [address]- 5968 Dec, [facility] [place] [facility] [address] [id number] [place] [address]- 5464 Dec, [facility] [place] [facility] [address] [id number] [place] [address]- 4529 Dec, [facility] [place] [facility] [address] [id number] [place] [address]- 9099 Dec, [facility] [place] [facility] [address] [id number] [place] [address]- 0603 Sep, [facility] [place] [facility] [address] [id number] [place] [address]- 0730 Sep, [facility] [place] [facility] [address] [id number] [place] [address]- 0152 Sep, [facility] [place] [facility] [address] [id number] [place] [address]- 2960 Sep, 2013 [facility] [place] [facility] [address] [id number] [place] [address]- 0465 Sep, 2013 [facility] [place] [facility] [address] [id number] [place] [address]- 4166 Sep, 2013 [facility] [place] [facility] [address] [id number] [place] [address]- 6074 Sep, 2013 [facility] [place] [facility] [address] [id number] [place] [address]- 2135 Sep, 2013 [facility] [place] [facility] [address] [id number] [place] [address]- 4801 Sep, 2013 [facility] [place] [facility] [address] [id number] [place] [address]- 9309 Sep, [facility] [place] [facility] [address] [id number] [place] [address]- 4188 24 Aug, 2013 [facility] [place] [facility] [address] [id number] [place] [address]- 7063 Aug, [facility] [place] [facility] [address] [id number] [place] [address]- 1693 Aug, [facility] [place] [facility] [address] [id number] [place] [address]- 9850 Aug, [facility] [place] [facility] [address] [id number] [place] [address]- 1324 17 Aug, 2013 [facility] [place] [facility] [address] [id number] [place] [address]- 0462 Aug, [facility] [place] [facility] [address] [id number] [place] [address]- 5760 Aug, [facility] [place] [facility] [address] [id number] [place] [address]- 3685 Aug, [facility] [place] [facility] [address] [id number] [place] [address]- 5610 Aug, [facility] [place] [facility] [address] [id number] [place] [address]- 7655 Aug, [facility] [place] [facility] [address] [id number] [place] [address]- 6907 Aug, [facility] [place] [facility] [address] [id number] [place] [address]- 9852 Aug, [facility] [place] [facility] [address] [id number] [place] [address]- 1097 Aug, [facility] [place] [facility] [address] [id number] [place] [address]- 1831 July, [facility] [place] [facility] [address] [id number] [place] [address]- 4705 July, [facility] [place] [facility] [address] [id number] [place] [address]- 0315 July, [facility] [place] [facility] [address] [id number] [place] [address]- 6837 July, [facility] [place] [facility] [address] [id number] [place] [address]- 7744 July, [facility] [place] [facility] [address] [id number] [place] [address]- 6509 July, [facility] [place] [facility] [address] [id number] [place] [address]- 5954 July, [facility] [place] [facility] [address] [id number] [place] [address]- 7376 Jun, [facility] [place] [facility] [address] [id number] [place] [address]- 1373 Jun, [facility] [place] [facility] [address] [id number] [place] [address]- 3328 Jun, [facility] [place] [facility] [address] [id number] [place] [address]- 9454 Jun, [facility] [place] [facility] [address] [id number] [place] [address]- 3431 16 Jun, 2013 [facility] [place] [facility] [address] [id number] [place] [address]- 6285 08 Jun, 2013 [facility] [place] [facility] [address] [id number] [place] [address]- 6751 08 Jun, 2013 [facility] [place] [facility] [address] [id number] [place] [address]- 9129 17 May, 2013 [facility] [place] [facility] [address] [id number] [place] [address]- 9713 17 May, 2013 [facility] [place] [facility] [address] [id number] [place] [address]- 4228 14 May, 2013 [facility] [place] [facility] [address] [id number] [place] [address]- 0485 14 May, 2013 [facility] [place] [facility] [address] [id number] [place] [address]- 7408 13 May, 2013 [facility] [place] [facility] [address] [id number] [place] [address]- 3834 13 May, 2013 [facility] [place] [facility] [address] [id number] [place] [address]- 1868 10 May, 2013 [facility] [place] [facility] [address] [id number] [place] [address]- 6845 10 May, 2013 [facility] [place] [facility] [address] [id number] [place] [address]- 1024 07 May, 2013 [facility] [place] [facility] [address] [id number] [place] [address]- 2069 Apr, [facility] [place] [facility] [address] [id number] [place] [address]- 4981 Apr, [facility] [place] [facility] [address] [id number] [place] [address]- 4074 18 Apr, 2013 [facility] [place] [facility] [address] [id number] [place] [address]- 0870 Apr, [facility] [place] [facility] [address] [id number] [place] [address]- 9846 Apr, [facility] [place] [facility] [address] [id number] [place] [address]- 2196 Apr, [facility] [place] [facility] [address] [id number] [place] [address]- 4546 Apr, [facility] [place] [facility] [address] [id number] [place] [address]- 5772 Apr, [facility] [place] [facility] [address] [id number] [place] [address]- 2092 Apr, [facility] [place] [facility] [address] [id number] [place] [address]- 0299 Apr, [facility] [place] [facility] [address] [id number] [place] [address]- 6263 Mar, [facility] [place] [facility] [address] [id number] [place] [address]- 9011 Mar, [facility] [place] [facility] [address] [id number] [place] [address]- 5167 Mar, [facility] [place] [facility] [address] [facility] [id number] [place] [address]- 2355 Mar, [facility] [place] [facility] [address] [id number] [place] [address]- 8892 Mar, [facility] [place] [facility] [address] [id number] [place] [address]- 7142 Mar, [facility] [place] [facility] [address] [id number] [place] [address]- 8251 Mar, [facility] [place] [facility] [address] [id number] [place] [address]- 8690 Mar, [facility] [place] [facility] [address] [id number] [address]- 9030 Feb, [facility] [place] [facility] [address] [id number] [place] [address]- 1781 Feb, [facility] [place] [facility] [address] [id number] [place] [address]- 6874 Jan, [facility] [place] [facility] [address] [id number] [place] [address]- 8675 Jan, [facility] [place] [facility] [address] [id number] [place] [address]- 1750 Jan, [facility] [place] [facility] [address] [id number] [place] [address]- 1590 Jan, [facility] [place] [facility] [address] [id number] [place] [address]- 1099 Jan, [facility] [place] [facility] [address] [id number] [place] [address]- 4282 Jan, [facility] [place] [facility] [address] [id number] [place] [address]- 8710 Jan, [facility] [place] [facility] [address] [id number] [place] [address]- 1116 Jan, [facility] [place] [facility] [address] [id number] [place] [address]- 9235 Dec, [facility] [place] [facility] [address] [id number] [place] [address]- 5912 Dec, [facility] [place] [facility] [address] [id number] [place] [address]- 7786 Dec, [facility] [place] [facility] [address] [id number] [place] [address]- 8786 20 Nov, 2012 [facility] [place] [facility] [address] [id number] [place] [address]- 0540 13 Nov, 2012 [facility] [place] [facility] [address] [id number] [place] [address]- 6650 12 Nov, 2012 [facility] [place] [facility] [address] [id number] [place] [address]- 2446 Nov, [facility] [place] [facility] [address] [id number] [place] [address]- 6994 Nov, [facility] [place] [facility] [address] [id number] [place] [address]- 2785 Nov, [facility] [place] [facility] [address] [id number] [place] [address]- 5905 Oct, [facility] [place] [facility] [address] [id number] [place] [address]- 5798 Oct, [facility] [place] [facility] [address] [id number] [place] [address]- 7182 Sep, [facility] [place] [facility] [address] [id number] [place] [address]- 5930 Sep, [facility] [place] [facility] [address] [id number] [place] [address]- 0274 Sep, [facility] [place] [facility] [address] [id number] [place] [address]- 5315 Sep, [facility] [place] [facility] [address] [id number] [place] [address]- 2388 Sep, [facility] [place] [facility] [address] [id number] [place] [address]- 8713 Sep, [facility] [place] [facility] [address] [id number] [place] [address]- 4277 Sep, [facility] [place] [facility] [address] [id number] [place] [address]- 7624 Aug, [facility] [place] [facility] [address] [id number] [place] [address]- 9884 Aug, [facility] [place] [facility] [address] [id number] [place] [address]- 0595 Aug, [facility] [place] [facility] [address] [id number] [place] [address]- 5966 Aug, [facility] [place] [facility] [address] [id number] [place] [address]- 1549 Aug, [facility] [address] [id number] [place] [address]- 8998 Aug, [facility] [address] [id number] [place] [address]- 7335 July, [facility] [address] [id number] [place] [address]- 1170 July, [facility] [address] [id number] [place] [address]- 0449 July, [facility] [place] [address] [id number] [place] [address]- 6638 July, [facility] [address] [id number] [place] [address]- 7480 July, [facility] [address] [id number] [place] [address]- 4543 July, [facility] [address] [id number] [place] [address]- 2687 Jun, [facility] [address] [id number] [place] [address]- 5564 Jun, [facility] [address] [id number] [place] [address]- 4173 Jun, [facility] [address] [id number] [place] [address]- 8275 Jun, [facility] [address] [id number] [place] [address]- 5047 Jun, [facility] [address] [id number] [place] [address]- 9492 Jun, [facility] [address] [id number] [place] [address]- 0700 Jun, [facility] [address] [id number] [place] [address]- 7801 May, [facility] [address] [id number] [place] [address]- 9092 04 May, 2012 [facility] [place] [facility] [address] [id number] [place] [address]- 2676 26 Apr, 2012 [facility] [place] [facility] [address] [id number] [place] [address] Apr, [facility] [place] [facility] [address] [id number] [place] [address] 18 Apr, 2012 [facility] [place] [facility] [address] [id number] [place] [address] 18 Apr, 2012 [facility] [place] [facility] [address] [id number] [place] [address] 12 Apr, 2012 [facility] [place] [facility] [address] [id number] [place] [address] 08 Apr, 2012 [facility] [place] [facility] [address] [id number] [place] [address] 07 Apr, 2012 [facility] [place] [facility] [address] [id number] [place] [address] 07 Apr, 2012 [facility] [place] [facility] [address] [id number] [place] [address] 06 Apr, 2012 [facility] [place] [facility] [address] [id number] [place] [address] Apr, [facility] [place] [facility] [address] [id number] [place] [address] 2546 Apr, [facility] [place] [facility] [address] [id number] [place] [address] Mar, [facility] [place] [facility] [address] [id number] [place] [address] Mar, [facility] [place] [facility] [address] [id number] [place] [address] Mar, [facility] [place] [facility] [address] [id number] [place] [address] Mar, [facility] [address] [id number] [place] [address] Mar, [facility] [address] [id number] [place] [address] Mar, [facility] [address] [id number] [place] [address] Mar, [facility] [address] [id number] [place] [address] Mar, [facility] [address] [id number] [place] [address] Mar, [facility] [address] [id number] [place] [address] Mar, [facility] [address] [id number] [place] [address] Mar, [facility] [address] [id number] [place] [address] Mar, [facility] [address] [id number] [place] [address] Mar, [facility] [address] [id number] [place] [address] Feb, [facility] [address] [id number] [place] [address] Feb, [facility] [address] [id number] [place] [address] Feb, [facility] [address] [id number] [place] [address] Feb, [facility] [address] [id number] [place] [address] Feb, [facility] [address] [id number] [place] [address] Feb, [facility] [place] [facility] [address] [id number] [place] [address] Feb, [facility] [place] [facility] [address] [id number] [place] [address] Feb, [facility] [place] [facility] [address] [id number] [place] [address] Feb, [facility] [place] [facility] [address] [id number] [place] [address] Feb, [facility] [place] [facility] [address] [id number] [place] [address] Feb, [facility] [place] [facility] [address] [id number] [place] [address] Feb, [facility] [place] [facility] [address] [id number] [place] [address] Feb, [facility] [place] [facility] [address] [id number] [place] [address] Feb, [facility] [place] [facility] [address] [id number] [place] [address] Feb, [facility] [place] [facility] [address] [id number] [place] [address] Jan, [facility] [place] [facility] [address] [id number] [place] [address] Jan, [facility] [place] [facility] [address] [id number] [place] [address] Jan, [facility] [place] [facility] [address] [id number] [place] [address] Jan, [facility] [place] [facility] [address] [id number] [place] [address] Dec, [facility] [place] [facility] [address] [id number] [place] [address] Dec, [facility] [place] [facility] [address] [id number] [place] [address] Dec, 2011 [facility] [place] [facility] [address] [id number] [place] [address] Dec, 2011 [facility] [place] [facility] [address] [id number] [place] [address] Dec, 2011 [facility] [place] [facility] [address] [id number] [place] [address] Dec, 2011 [facility] [place] [facility] [address] [id number] [place] [address]- [address] 16 Dec, 2011 [facility] [place] [facility] [address] [id number] [place] [address]- 3765 16 Dec, 2011 [facility] [place] [facility] [address] [id number] [place] [address]- 15[address] 07 Dec, 2011 [facility] [place] [facility] [address] [id number] [place] [address]- [address] 04 Dec, 2011 [facility] [place] [facility] [address] [id number] [place] [address]- [address] 03 Dec, 2011 [facility] [place] [facility] [address] [id number] [place] [address]- [address] 25 Sep, 2011 [facility] [place] [facility] [address] [facility] [id number] [place] [address] 24 Sep, 2011 [facility] [place] [facility] [address] [id number] [place] [address]- [address] 20 Sep, 2011 [facility] [place] [facility] [address] [id number] [place] [address] 19 Sep, 2011 [facility] [place] [facility] [address] [id number] [place] [address]- [address] 17 Sep, 2011 [facility] [place] [facility] [address] [facility] [id number] [place] [address]- [address] 16 Sep, 2011 [facility] [place] [facility] [address] [facility] [id number] [place] [address]- [address] 14 Sep, 2011 [facility] [place] [facility] [address] [id number] [place] [address]- [address] 13 Sep, 2011 [facility] [place] [facility] [address] [id number] [place] [address]- [address]86 12 Sep, 2011 [facility] [place] [facility] [address] [id number] [facility] [place] [address] 07 Sep, 2011 [facility] [place] [facility] [address] [id number] [place] [address] 06 Sep, 2011 [facility] [place] [facility] [address] [id number] [place] [address] 2542 06 Sep, 2011 [facility] [place] [facility] [address] [id number] [place] [address] 05 Nov, 2011 [facility] [place] [facility] [address] [id number] [place] [address] 1339 29 Oct, 2011 [facility] [place] [facility] [address] [id number] [place] [address] 2480 29 Oct, 2011 [facility] [place] [facility] [address] [id number] [place] [address] Oct, [facility] [place] [facility] [address] [id number] [place] [address] 28 Oct, 2011 [facility] [place] [facility] [address] [id number] [place] [address] Oct, [facility] [place] [facility] [address] [id number] [place] [address] 2547 Oct, [facility] [place] [facility] [address] [id number] [place] [address] 20 Oct, 2011 [facility] [place] [facility] [address] [id number] [place] [address] 2540 16 Oct, 2011 [facility] [place] [facility] [address] [id number] [place] [address] 2541 15 Oct, 2011 [facility] [place] [facility] [address] [id number] [place] [address] 28[address] Oct, [facility] [place] [facility] [address] [id number] [place] [address] Oct, [facility] [place] [facility] [address] [id number] [place] [address] 68[address] Sep, [facility] [place] [facility] [address] [id number] [place] [address] 230[address] Sep, [facility] [place] [facility] [address] [id number] [place] [address]894 Sep, [facility] [place] [facility] [address] [id number] [place] [address] 0914 Sep, [facility] [place] [facility] [address] [id number] [place] [address] Sep, [facility] [place] [facility] [address] [id number] [place] [address] Sep, [facility] [place] [facility] [address] [id number] [place] [address] Aug, [facility] [place] [facility] [address] [id number] [place] [address]35 July, [facility] [place] [facility] [address] [id number] [place] [address] 6096 July, [facility] [place] [facility] [address] [id number] [place] [address] 9416 Jun, [facility] [place] [facility] [address] [id number] [place] [address] 4941 Jun, [facility] [place] [facility] [address] [id number] [place] [address] 3058 Jun, [facility] [place] [facility] [address] [id number] [place] [address] 6313 Jun, [facility] [place] [facility] [address] [id number] [place] [address]255 Jun, [facility] [place] [facility] [address] [id number] [place] [address] 5875 10 Jun, 2011 [facility] [address] [id number] [place] [address]- 9975 09 Jun, 2011 [facility] [place] [facility] [address] [id number] [place] [address] 2876 08 Jun, 2011 [facility] [address] [id number] [place] [address] 4737 03 Jun, 2011 [facility] [place] [facility] [address] [id number] [place] [address] 6841 Jun, [facility] [address] [id number] [place] [address]- 6087 Jun, [facility] [place] [facility] [address] [id number] [place] [address] 1856 19 May, 2011 [facility] [place] [facility] [address] [id number] [place] [address]- 8769 16 May, 2011 [facility] [address] [id number] [place] [address] 6300 14 May, 2011 [facility] [place] [facility] [address] [id number] [place] [address] 6939 06 May, 2011 [facility] [address] [id number] [place] [address] 4203 28 Apr, 2011 [facility] [place] [facility] [address] [id number] [place] [address] 0195 28 Apr, 2011 [facility] [place] [facility] [address] [id number] [place] [address] 9100 27 Apr, 2011 [facility] [place] [facility] [address] [id number] [place] [address] 23 Apr, 2011 [facility] [place] [facility] [address] [id number] [place] [address]- 4042 23 Apr, 2011 [facility] [place] [facility] [address] [id number] [place] [address] 7984 Apr, [facility] [place] [facility] [address] [id number] [place] [address] 8995 Apr, [facility] [place] [facility] [address] [id number] [place] [address] 0043 Apr, [facility] [place] [facility] [address] [id number] [place] [address] 8566 Mar, [facility] [place] [facility] [address] [id number] [place] [address] 0506 Mar, [facility] [place] [facility] [address] [id number] [place] [address] 1931 Mar, [facility] [place] [facility] [address] [id number] [place] [address]- 8494 Mar, [facility] [place] [facility] [address] [id number] [place] [address]- 7217 Mar, [facility] [place] [facility] [address] [id number] [place] [address] 5400 Mar, [facility] [place] [facility] [address] [id number] [place] [address]- 5743 Mar, [facility] [place] [facility] [address] [id number] [place] [address]- 5207 Mar, [facility] [place] [facility] [address] [id number] [place] [address]- 6950 Mar, [facility] [place] [facility] [address] [id number] [place] [address]- 2356 Mar, [facility] [place] [facility] [address] [id number] [place] [address]- 9255 Mar, [facility] [place] [facility] [address] [id number] [place] [address]- 6068 Mar, [facility] [place] [facility] [address] [id number] [place] [address]- 3036 Mar, [facility] [place] [facility] [address] [id number] [place] [address]- 7406 Mar, [facility] [address] [id number] [place] [address]- 7260 Mar, [facility] [address] [id number] [place] [address] Mar, [facility] [address] [id number] [place] [address]- 6429 Feb, [facility] [address] [id number] [place] [address]- 8553 Feb, [facility] [address] [id number] [place] [address]- 8141 Feb, [facility] [address] [id number] [place] [address]- 2597 Jan, [facility] [address] [id number] [place] [address]- 5951 Jan, [facility] [address] [id number] [place] [address]- 9688 Jan, [facility] [address] [id number] [place] [address]- 6059 Dec, [facility] [address] [id number] [place] [address] Dec, [facility] [address] [id number] [place] [address]- 9741 16 Nov, 2010 [facility] [place] [facility] [address] [id number] [place] [address]- 7685 Oct, [facility] [place] [facility] [address] [id number] [place] [address] 1954 Oct, [facility] [place] [facility] [address] [id number] [place] [address]- 4030 Oct, [facility] [place] [facility] [address] [id number] [place] [address]- 8961 Sep, [facility] [address] [facility] [id number] [place] [address] 2546 Apr, [facility] [address] [facility] [id number] [place] [address]- 2546 Feb, [facility] [address] [facility] [id number] [place] [address]- 2546 Jan, IMMUNIZATIONS No Known Immunizations SOCIAL HISTORY Never Assessed REASON FOR VISIT patient phone call PLAN OF CARE VITAL SIGNS MEDICATIONS Unknown [...] 2/2 Benzos OD, pneumonia MRSA, [facility], Hypokalemia-- [facility] 12/20/2015 Hospitalization History COPD exacerbation, Asthma-[facility] 09/21/16 Hospitalization History COPD-[facility] 12/30/2016 Hospitalization History [facility] for inpatient-last around 2006 or so. Hospitalization History for COPD x2 Mar 2017 Hospitalization History Upper GI bleed at apr [address] [facility]- COPD Exacerbation, diarrhea 05/23/2017 Hospitalization History COPD exacerbation-[facility] 06/13/17 Hospitalization History CHF 09/09/2017
--- OUTSIDE RECORDS SUMMARY | 2017-11-19 13:19 | XMS REPORT ---
Author Author ALIZA CARTER [facility] Address [address] [place] [address] Care Team Providers Care Clinical Quality Rn Name Role Phone ALIZA CARTER Unavailable PROBLEMS Type Condition ICD9-CM Code ZHI86-LV Code Onset Dates Condition Status SNOMED Code Problem Bipolar disorder with depression F31.30 Active 53031098 Problem Other emphysema J43.8 Active 88120581 Problem Migraine without aura and without status migrainosus, not intractable G43.009 Active 968909864 Problem Anxiety F41.9 Active 13250456 Problem COPD with exacerbation J44.1 Active 961974315 Problem Methamphetamine use disorder, moderate, 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 Active 79393294 Problem Chronic bronchitis, unspecified chronic bronchitis type J42 Active 76939053 Problem Intractable cyclical vomiting with nausea G43.A1 Active 19434005 Problem Diabetes E11.9 Active 840927233 Problem 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 Active Problem Tobacco abuse Z72.0 Active 19963485 Problem Examination of eyes and vision V72.0 Active 113112424 Problem Chronic constipation K59.09 Active 557666086 Problem Memory loss R41.3 Active 70880542 Problem Migraine G43.909 Active 79801517 Problem Bipolar disorder, unspecified F31.9 Active 08839929 Problem TMJ (sprain of temporomandibular joint) S03.4XXA Active 23504422 Problem Generalized anxiety disorder F41.1 Active 75081980 ALLERGIES No Information ENCOUNTERS Encounter Location Date Diagnosis [facility] [address], [place] [address] Oct, [facility] [address] [address] Oct, [facility] [address], [place] [address] 75[address] Oct, [facility] [address], [place] [address] Oct, [facility] [id number] [place] [address] 79070- 5635 Oct, Thrush B37.0 [facility] [address], [place] [address] Sep, COPD with exacerbation J44.1 and Anxiety F41.9 [facility] [id number] [address] Sep, [facility] [id number] [place] [address] 78703- 8023 Sep, [facility] [id number] [place] [address] 24238- 4378 Sep, [facility] [id number] [place] [address] 89064- 9430 Sep, Acute congestive heart failure, unspecified heart failure type I50.9 and Anxiety disorder, unspecified F41.9 [facility] [id number] [place] [address] 24982- 5194 Sep, Heart failure, unspecified HF chronicity, unspecified heart failure type I50.9 [facility] [address], [place] [address] 2[address] Sep, [facility] [address], [place] [address] 5[address] Aug, Chronic obstructive pulmonary disease with acute exacerbation J44.1 [facility] [address] [address] 1607 Aug, [facility] [address], [place] [address]- 6594 Aug, [facility] [address], [place] [address] 7299 July, [facility] [address], [place] [address] 0[address] July, [facility] [id number] [place] [address] 90450- 3227 July, Diabetes E11.9 and Chronic obstructive pulmonary disease with acute exacerbation J44.1 [facility] [id number] [place] [address] 62241- 9861 Jun, Chronic obstructive pulmonary disease with acute exacerbation J44.1 ; Diabetes E11.9 and Tobacco abuse Z72.0 [facility] [id number] [place] [address] 09639- 7305 Jun, [facility] [id number] [place] [address] 71752- 3935 Jun, [facility] [id number] [place] [address] 04325- 7692 May, [facility] [id number] [place] [address] 60797- 1070 May, [facility] [id number] [place] [address] 03163 -9641 17 May, 2017 [facility] [id number] [place] [address] 89839- 0133 16 May, 2017 [facility] [id number] [place] [address] 31527- 7382 15 May, 2017 [facility] [id number] [place] [address] 82047- 0953 14 May, 2017 Diarrhea, unspecified type R19.7 and Intractable cyclical vomiting with nausea G43.A1 [facility] [id number] [place] [address] 30124- 5594 May, [facility] [id number] [place] [address] 92279- 7193 05 May, 2017 [facility] [id number] [place] [address] 03679- 1077 Apr, COPD exacerbation J44.1 ; Esophageal candidiasis B37.81 ; Other acute gastritis with hemorrhage K29.01 and Acute posthemorrhagic anemia D62 [facility] [id number] [place] [address] 10059- 2323 Apr, Viral illness B34.9 and COPD exacerbation J44.1 [facility] [address] [address] Apr, Shortness of breath R06.02 and Pneumonia of both lower lobes due to infectious organism J18.9 [facility] [address] [address] Mar, COPD with acute exacerbation J44.1 [place] [address] 6[address]- 7453 Mar, Chronic obstructive pulmonary disease with acute exacerbation J44.1 and Diabetes E11.9 [place] [address] 71568- 1294 Mar, [facility] [address] 99386- 4686 Mar, 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 ; Major depressive disorder, recurrent, moderate F33.1 ; Anxiety disorder, unspecified F41.9 and Tobacco abuse Z72.0 [place] [place] [id number] [place] [address] 48420- 9831 30 Jan, 2017 Major depressive disorder, recurrent, moderate F33.1 [place] [address] 31439- 6439 Jan, [place] [address] 22892- 7970 Jan, [place] [address] 01157- 0328 Jan, Major depressive disorder, recurrent, moderate F33.1 [place] [address] 82785- 4640 Jan, Major depressive disorder, recurrent, moderate F33.1 ; Anxiety disorder, unspecified F41.9 ; Methamphetamine use disorder, moderate, 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01 ; Chronic bronchitis, unspecified chronic bronchitis type J42 and Tobacco use Z72.0 [place] [address] [place] [address]- 4835 Dec, [facility] [id number] [place] [address] [id number] Nov, Dental caries K02.9 and Dental examination Z01.20 [facility] [id number] [place] [address] 80717- 9296 Nov, Major depressive disorder, recurrent, moderate F33.1 ; Anxiety disorder, unspecified F41.9 and 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 [facility] [id number] [place] [address] [id number] Oct, Dental examination Z01.20 [facility] [address] 71009- 9600 Oct, [facility] [id number] [place] [address] 08902- 4572 Oct, Diabetes E11.9 and Thrush B37.0 [facility] [id number] [place] [address] 00289- 8491 Oct, [facility] [id number] [place] [address] 16549- 7473 Oct, [facility] [id number] [place] [address] 95194- 2327 Oct, [facility] [id number] [place] [address] 48748- 4247 Sep, Major depressive disorder, recurrent, moderate F33.1 ; Anxiety disorder, unspecified F41.9 and Bipolar disorder, unspecified F31.9 [facility] [id number] [place] [address] 78317- 7523 Sep, Acute exacerbation of chronic obstructive pulmonary disease (COPD) J44.1 and Migraine G43.909 [facility] [id number] [place] [address] 45801- 8351 Sep, [facility] [id number] [place] [address] [id number] Sep, [facility] [address], [place] [address]- 1754 Sep, Acute exacerbation of chronic obstructive pulmonary disease (COPD) J44.1 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 [facility] [id number] [place] [address] 15725- 6348 Aug, Wheezing R06.2 ; Non morbid obesity due to excess calories E66.09 ; Migraine without aura and without status migrainosus, not intractable G43.009 and Tobacco abuse Z72.0 [facility] [id number] [place] [address] [id number] [phone] Aug, 2016 Encounter for dental examination Z01.20 [facility] [id number] [place] [address] 76088- 4553 02 Aug, 2016 Major depressive disorder, recurrent, moderate F33.1 ; Anxiety disorder, unspecified F41.9 and 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 [facility] [address], [place] [address]- 0326 July, [facility] [id number] [place] [address] 23681- 7143 July, [facility] [address], [place] [address]- 9013 July, [facility] [id number] [place] [address] 25664- 4263 July, Diabetes E11.9 [facility] [id number] [place] [address] 893182- 0126 Jun, Major depressive disorder, recurrent, moderate F33.1 [facility] [id number] [place] [address] 21837- 1726 Jun, Major depressive disorder, recurrent, moderate F33.1 ; 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 ; Generalized anxiety disorder F41.1 and Bipolar disorder, unspecified F31.9 [facility] [id number] [place] [address] 96106- 6678 Jun, Diabetes E11.9 ; Migraine G43.909 ; Thrush B37.0 and Wheezing R06.2 [facility] [id number] [place] [address] [id number] Jun, Dental examination Z01.20 [facility] [id number] [place] [address] 23349- 4803 Jun, [facility] [id number] [place] [address] 06485- 2495 Jun, Major depressive disorder, recurrent, moderate F33.1 ; Anxiety disorder, unspecified F41.9 and 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 [facility] [id number] [place] [address] 11320- 6790 Jun, [facility] [id number] [place] [address] 22857- 3188 Jun, Wheezing R06.2 [facility] [id number] [place] [address] [id number] Jun, Dental caries K02.9 [facility] [id number] [place] [address] 70108- 1234 Jun, Major depressive disorder, recurrent, moderate F33.1 ; Anxiety disorder, unspecified F41.9 and 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 [place] [id number] [place] [address] 88055- 1313 Jun, RLQ abdominal pain R10.31 ; Diabetes E11.9 ; Obesity, unspecified obesity severity, unspecified obesity type E66.9 ; Wheezing R06.2 and Abnormal urinalysis R82.90 [place] [id number] [place] [address] 04143- 4694 May, [place] [address] 873484- 8371 May, Well woman exam Z01.419 ; Breast cancer screening Z12.39 ; Cervical cancer screening Z12.4 ; Urinary frequency R35.0 ; Edema, unspecified type R60.9 and Chronic constipation K59.09 [place] [id number] [place] [address] 37518- 5863 May, Major depressive disorder, recurrent, moderate F33.1 ; Anxiety disorder, unspecified F41.9 and 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 [facility] [id number] [place] [address] [phone] May, Dental examination Z01.20 [place] [place] [id number] [place] [address] 68997- 7688 May, [place] [id number] [place] [address] 47254- 8041 May, [place] [id number] [place] [address] 54850- 3640 May, Chronic constipation K59.09 [place] [id number] [place] [address] 81618- 5258 Apr, [place] [id number] [place] [address] 98256- 8992 Apr, Major depressive disorder, recurrent, moderate F33.1 ; Anxiety disorder, unspecified F41.9 and 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 [place] [address], [place] [address]- 1764 02 Apr, 2016 [place] [place] [id number] [place] [address] 03904- 3847 Mar, Major depressive disorder, recurrent, moderate F33.1 [place] [id number] [place] [address] 55323- 6672 Mar, Major depressive disorder, recurrent, moderate F33.1 ; Generalized anxiety disorder F41.1 and Bipolar I disorder, most recent episode depressed with anxious distress F31.30 [place] [id number] [place] [address] 84515- 4664 Mar, Diabetes E11.9 ; Non morbid obesity due to excess calories E66.09 ; Breast cancer screening Z12.39 and Encounter for immunization Z23 [place] [id number] [place] [address] 45131- 2484 Mar, Major depressive disorder, recurrent, moderate F33.1 ; Anxiety disorder, unspecified F41.9 and 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 [place] [id number] [place] [address] 37153- 8455 Mar, [place] [id number] [place] [address] 27656- 1261 Feb, Major depressive disorder, recurrent, moderate F33.1 ; Anxiety disorder, unspecified F41.9 and 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 [place] [id number] [place] [address] 00229- 7898 Feb, [place] [id number] [place] [address] 26844- 6186 Feb, [place] [id number] [place] [address] 22163- 2237 Jan, Major depressive disorder, recurrent, moderate F33.1 ; Generalized anxiety disorder F41.1 and Bipolar disorder, current episode depressed, severe, without psychotic features F31.4 [facility] [id number], [place] [address]- 3985 18 Jan, 2016 Major depressive disorder, recurrent, moderate F33.1 ; Anxiety disorder, unspecified F41.9 and 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 [facility] [address], [place] [address]- 0949 16 Jan, 2016 Bronchitis J40 [facility] [id number] [place] [address] 26400- 1286 Jan, [facility] [id number] [place] [address] 20390- 5016 Jan, [place] [id number] [place] [address] 73229- 4714 Jan, Elbow injury, right, initial encounter S59.901A ; Multiple contusions T14.8 and Cervical strain, acute, initial encounter S16.1XXA [place] [id number] [place] [address] 35566- 8760 Dec, Major depressive disorder, recurrent, moderate F33.1 ; Generalized anxiety disorder F41.1 and Bipolar disorder with depression F31.30 [place] [id number] [place] [address] 60843- 0669 Dec, [facility] [address], [place] [address]- 0793 Dec, [facility] [address], [place] [address]- 0533 Dec, [facility] [address], [place] [address]- 3592 Dec, [facility] [id number] [place] [address] 13222- 0101 Dec, Yeast infection B37.9 [facility] [address], [place] [address]- 8154 Dec, Pneumonia of both lungs due to methicillin resistant Staphylococcus aureus (MRSA), unspecified part of lung J15.212 and Benzodiazepine overdose, accidental or unintentional, subsequent encounter T42.4X1D [place] [address], [place] [address]- 0052 Dec, [place] [address], [place] [address]- 4661 Dec, [place] [id number] [place] [address] 03431- 9915 Dec, Knee pain, left M25.562 and Edema, unspecified type R60.9 [place] [id number] [place] [address] 80013- 5849 Dec, [place] [id number] [place] [address] 17470- 4774 Dec, Anxiety disorder, unspecified F41.9 and Bipolar disorder, unspecified F31.9 [place] [id number] [place] [address] 72794- 7473 Nov, Major depressive disorder, recurrent, moderate F33.1 ; Anxiety disorder, unspecified F41.9 and 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 [place] [address], [place] [address]- 9698 Nov, [place] [id number] [place] [address] 05910- 8703 Nov, Migraine without aura and without status migrainosus, not intractable G43.009 [place] [id number] [place] [address] 11804- 2198 Nov, Migraine G43.909 [place] [id number] [place] [address] 26474- 3293 Nov, [place] [id number] [place] [address] 52116- 0508 Nov, Major depressive disorder, recurrent, moderate F33.1 ; Anxiety disorder, unspecified F41.9 and 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 [place] [id number] [place] [address] 69271- 0517 Oct, Chronic constipation K59.09 and Obesity, unspecified obesity severity, unspecified obesity type E66.9 [place] [id number] [place] [address] 11311- 2328 Oct, Obesity, unspecified obesity severity, unspecified obesity type E66.9 ; Chronic constipation K59.09 and Anxiety disorder, unspecified F41.9 [place] [id number] [place] [address] 31601- 0689 Oct, [place] [address] 12680- 9540 Sep, Diabetes E11.9 ; Edema, unspecified type R60.9 ; Varicose vein of leg I83.90 and Obesity, unspecified obesity severity, unspecified obesity type E66.9 [place] [id number] [place] [address] 69446- 5042 Sep, Edema, unspecified type R60.9 ; Diabetes E11.9 and Knee pain , left M25.562 [place] [id number] [place] [address] 09929- 8940 Sep, [place] [id number] [place] [address] 65106- 8911 Sep, [place] [id number] [place] [address] 10544- 9098 Sep, Major depressive disorder, recurrent, moderate F33.1 ; Generalized anxiety disorder F41.1 and Bipolar disorder, unspecified F31.9 [place] [id number] [place] [address] 15461- 8030 Aug, Chondromalacia of left knee M94.262 [place] [id number] [place] [address] 14528- 8610 Aug, Major depressive disorder, recurrent, moderate F33.1 ; Anxiety disorder, unspecified F41.9 and 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 [facility] [id number] [place] [address] 79892- 8007 Aug, [facility] [id number] [place] [address] 30098- 3025 06 Aug, 2015 Osteoarthritis of left knee M17.9 [facility] [id number] [place] [address] 54054- 8513 Aug, [facility] [id number] [place] [address] 91099- 3490 July, Major depressive disorder, recurrent, moderate F33.1 ; Anxiety disorder, unspecified F41.9 and 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 [facility] [id number] [place] [address] 29509- 0678 July, [facility] [id number] [place] [address] 20340- 7823 July, Chronic constipation K59.09 [facility] [id number] [place] [address] 48490- 0228 Jun, [facility] [id number] [place] [address] 35938- 3650 Jun, [facility] [id number] [place] [address] 88450- 5062 14 Jun, 2015 Osteoarthritis of left knee M17.9 [facility] [id number] [place] [address] 44953- 4357 Jun, [facility] [id number] [place] [address] 18526- 4982 Jun, Generalized anxiety disorder F41.1 ; Bipolar disorder, unspecified F31.9 and Major depressive disorder, recurrent, moderate F33.1 [facility] [id number] [place] [address] 91300- 6717 Jun, Migraine G43.909 [place] [id number] [place] [address] 16945- 6095 Jun, Left knee pain M25.562 ; Chronic constipation K59.09 ; Dry mouth R68.2 ; Yeast vaginitis B37.3 and Memory loss R41.3 [address] [address] 58642- 3823 Jun, [place] [address] 69084- 6215 May, [place] [address] 39751- 4512 May, [place] [address] 08839- 3270 May, [address] 17927- 5041 May, [place] [address] 70680- 1435 May, Acute bronchitis with COPD J44.0 ; Knee pain, left M25.562 and Encounter for tobacco use cessation counseling Z71.6 [id number] [place] [address] 13435- 1214 May, [id number] [place] [address] 99993- 1883 Apr, Diabetes E11.9 ; TMJ (sprain of temporomandibular joint) S03.4XXA ; Tobacco abuse Z72.0 ; Migraine G43.909 and Anxiety F41.[address] 87036- 6687 Apr, Generalized anxiety disorder F41.1 and Bipolar disorder, unspecified F31.9 [id number] [place] [address] 49229- 1423 Apr, Major depressive disorder, recurrent, moderate F33.1 ; Anxiety disorder, unspecified F41.9 and 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 [facility] [id number] [place] [address] 28030- 5506 04 Apr, 2015 [facility] [id number] [place] [address] 71082- 3886 Mar, [facility] [id number] [place] [address] 96255- 0597 Feb, [facility] [id number] [place] [address] 53101- 0675 14 Feb, 2015 Major depressive disorder, recurrent, moderate F33.1 ; Anxiety disorder, unspecified F41.9 and 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 [facility] [id number] [place] [address] 92693- 4840 Feb, [facility] [id number] [place] [address] 99219- 2152 Feb, Generalized anxiety disorder F41.1 and Bipolar disorder, unspecified F31.9 [facility] [id number] [place] [address] 40170- 7883 Jan, [facility] [id number] [place] [address] 91057- 6895 Jan, [facility] [id number] [place] [address] 36490- 6081 Jan, Bipolar disorder, unspecified F31.9 and Generalized anxiety disorder F41.1 [facility] [id number] [place] [address] 15376- 4044 Dec, [facility] [id number] [place] [address] 87741- 6928 14 Dec, 2014 Bipolar disorder, unspecified F31.9 and Generalized anxiety disorder F41.1 [facility] [id number] [place] [address] 55552- 6985 Dec, Generalized anxiety disorder F41.1 and Major depressive disorder, recurrent, moderate F33.1 [facility] [id number] [place] [address] 76141- 3472 Oct, Headache 784.0 ; Cough 786.2 ; Vomiting and diarrhea 787.03 and Dysuria 788.1 [facility] [address] 59843- 7153 Aug, [facility] [address] 93174- 0477 Aug, Headache 784.0 and Shortness of breath 786.05 [facility] [address] 72150- 3667 Aug, [facility] [address] 15969- 5433 Aug, Migraine 346.90 [facility] [address] 89206- 9620 Jun, [facility] [id number] [place] [address] 90777- 6157 Jun, [facility] [id number] [place] [address] 25110- 1111 May, [facility] [id number] [place] [address] 86464- 8015 May, [facility] [id number] [place] [address] 49537- 1151 May, [facility] [id number] [place] [address] 07222- 4559 May, [facility] [address] 68354- 8269 May, [facility] [id number] [place] [address] 23814- 4409 May, [facility] [id number] [place] [address] 22501- 6345 Apr, 2014 [facility] [place] [facility] [address] [id number] [place] [address]- 0489 Apr, 2014 [facility] [place] [facility] [address] [id number] [place] [address]- 2558 Apr, 2014 [facility] [place] [facility] [address] [facility] [id number] [place] [address]- 1959 Apr, 2014 [facility] [place] [facility] [address] [id number] [place] [address]- 0322 Apr, 2014 [facility] [place] [facility] [address] [id number] [place] [address]- 8950 Mar, [facility] [place] [facility] [address] [id number] [place] [address]- 6631 Mar, [facility] [place] [facility] [address] [id number] [place] [address]- 5145 Mar, [facility] [place] [facility] [address] [id number] [place] [address]- 5188 Mar, [facility] [place] [facility] [address] [id number] [place] [address]- 4906 Feb, [facility] [place] [facility] [address] [id number] [place] [address]- 4892 Feb, [facility] [place] [facility] [address] [id number] [place] [address]- 8228 18 Feb, 2014 [facility] [place] [facility] [address] [id number] [place] [address]- 7351 18 Feb, 2014 [facility] [place] [facility] [address] [id number] [place] [address]- 1220 16 Feb, 2014 [facility] [place] [facility] [address] [id number] [place] [address]- 0361 16 Feb, 2014 [facility] [place] [facility] [address] [facility] [id number] [place] [address]- 0582 11 Feb, 2014 [facility] [place] [facility] [address] [id number] [place] [address]- 5711 Feb, [facility] [place] [facility] [address] [id number] [place] [address]- 1251 Feb, [facility] [place] [facility] [address] [id number] [place] [address]- 9691 Feb, [facility] [place] [facility] [address] [id number] [place] [address]- 6172 Feb, [facility] [place] [facility] [address] [id number] [place] [address]- 1866 Feb, [facility] [place] [facility] [address] [id number] [place] [address]- 0714 Jan, [facility] [place] [facility] [address] [id number] [place] [address]- 6638 Jan, [facility] [place] [facility] [address] [id number] [place] [address]- 8680 Dec, [facility] [place] [facility] [address] [id number] [place] [address]- 5726 Dec, [facility] [place] [facility] [address] [id number] [place] [address]- 6005 Dec, [facility] [place] [facility] [address] [id number] [place] [address]- 6805 Dec, [facility] [place] [facility] [address] [id number] [place] [address]- 1032 Dec, [facility] [place] [facility] [address] [id number] [place] [address]- 6800 Dec, [facility] [place] [facility] [address] [id number] [place] [address]- 9552 Sep, [facility] [place] [facility] [address] [id number] [place] [address]- 9210 Sep, [facility] [place] [facility] [address] [id number] [place] [address]- 9369 Sep, [facility] [place] [facility] [address] [id number] [place] [address]- 0034 Sep, 2013 [facility] [place] [facility] [address] [id number] [place] [address]- 7551 Sep, 2013 [facility] [place] [facility] [address] [id number] [place] [address]- 7460 Sep, 2013 [facility] [place] [facility] [address] [id number] [place] [address]- 4939 Sep, 2013 [facility] [place] [facility] [address] [id number] [place] [address]- 8542 Sep, 2013 [facility] [place] [facility] [address] [id number] [place] [address]- 3270 Sep, 2013 [facility] [place] [facility] [address] [id number] [place] [address]- 2026 Sep, [facility] [place] [facility] [address] [id number] [place] [address]- 4365 24 Aug, 2013 [facility] [place] [facility] [address] [id number] [place] [address]- 3895 Aug, [facility] [place] [facility] [address] [id number] [place] [address]- 9145 Aug, [facility] [place] [facility] [address] [id number] [place] [address]- 1610 Aug, [facility] [place] [facility] [address] [id number] [place] [address]- 4831 17 Aug, 2013 [facility] [place] [facility] [address] [id number] [place] [address]- 3036 Aug, [facility] [place] [facility] [address] [id number] [place] [address]- 2187 Aug, [facility] [place] [facility] [address] [id number] [place] [address]- 1092 Aug, [facility] [place] [facility] [address] [id number] [place] [address]- 9542 Aug, [facility] [place] [facility] [address] [id number] [place] [address]- 4279 Aug, [facility] [place] [facility] [address] [id number] [place] [address]- 0846 Aug, [facility] [place] [facility] [address] [id number] [place] [address]- 9176 Aug, [facility] [place] [facility] [address] [id number] [place] [address]- 0921 Aug, [facility] [place] [facility] [address] [id number] [place] [address]- 4404 July, [facility] [place] [facility] [address] [id number] [place] [address]- 2353 July, [facility] [place] [facility] [address] [id number] [place] [address]- 0558 July, [facility] [place] [facility] [address] [id number] [place] [address]- 7603 July, [facility] [place] [facility] [address] [id number] [place] [address]- 4724 July, [facility] [place] [facility] [address] [id number] [place] [address]- 8481 July, [facility] [place] [facility] [address] [id number] [place] [address]- 7016 July, [facility] [place] [facility] [address] [id number] [place] [address]- 7680 Jun, [facility] [place] [facility] [address] [id number] [place] [address]- 8115 Jun, [facility] [place] [facility] [address] [id number] [place] [address]- 1818 Jun, [facility] [place] [facility] [address] [id number] [place] [address]- 4176 Jun, [facility] [place] [facility] [address] [id number] [place] [address]- 5847 16 Jun, 2013 [facility] [place] [facility] [address] [id number] [place] [address]- 9743 08 Jun, 2013 [facility] [place] [facility] [address] [id number] [place] [address]- 8434 08 Jun, 2013 [facility] [place] [facility] [address] [id number] [place] [address]- 1501 17 May, 2013 [facility] [place] [facility] [address] [id number] [place] [address]- 7025 17 May, 2013 [facility] [place] [facility] [address] [id number] [place] [address]- 7907 14 May, 2013 [facility] [place] [facility] [address] [id number] [place] [address]- 6266 14 May, 2013 [facility] [place] [facility] [address] [id number] [place] [address]- 4636 13 May, 2013 [facility] [place] [facility] [address] [id number] [place] [address]- 9181 13 May, 2013 [facility] [place] [facility] [address] [id number] [place] [address]- 7319 10 May, 2013 [facility] [place] [facility] [address] [id number] [place] [address]- 8191 10 May, 2013 [facility] [place] [facility] [address] [id number] [place] [address]- 7592 07 May, 2013 [facility] [place] [facility] [address] [id number] [place] [address]- 5387 Apr, [facility] [place] [facility] [address] [id number] [place] [address]- 8734 Apr, [facility] [place] [facility] [address] [id number] [place] [address]- 2019 18 Apr, 2013 [facility] [place] [facility] [address] [id number] [place] [address]- 3684 Apr, [facility] [place] [facility] [address] [id number] [place] [address]- 8106 Apr, [facility] [place] [facility] [address] [id number] [place] [address]- 8096 Apr, [facility] [place] [facility] [address] [id number] [place] [address]- 1776 Apr, [facility] [place] [facility] [address] [id number] [place] [address]- 9270 Apr, [facility] [place] [facility] [address] [id number] [place] [address]- 0789 Apr, [facility] [place] [facility] [address] [id number] [place] [address]- 3021 Apr, [facility] [place] [facility] [address] [id number] [place] [address]- 1051 Mar, [facility] [place] [facility] [address] [id number] [place] [address]- 8728 Mar, [facility] [place] [facility] [address] [id number] [place] [address]- 0811 Mar, [facility] [place] [facility] [address] [facility] [id number] [place] [address]- 9465 Mar, [facility] [place] [facility] [address] [id number] [place] [address]- 8851 Mar, [facility] [place] [facility] [address] [id number] [place] [address]- 5776 Mar, [facility] [place] [facility] [address] [id number] [place] [address]- 1490 Mar, [facility] [place] [facility] [address] [id number] [place] [address]- 2963 Mar, [facility] [place] [facility] [address] [id number] [address]- 4845 Feb, [facility] [place] [facility] [address] [id number] [place] [address]- 6413 Feb, [facility] [place] [facility] [address] [id number] [place] [address]- 2008 Jan, [facility] [place] [facility] [address] [id number] [place] [address]- 4118 Jan, [facility] [place] [facility] [address] [id number] [place] [address]- 0031 Jan, [facility] [place] [facility] [address] [id number] [place] [address]- 0509 Jan, [facility] [place] [facility] [address] [id number] [place] [address]- 4693 Jan, [facility] [place] [facility] [address] [id number] [place] [address]- 3494 Jan, [facility] [place] [facility] [address] [id number] [place] [address]- 7387 Jan, [facility] [place] [facility] [address] [id number] [place] [address]- 0477 Jan, [facility] [place] [facility] [address] [id number] [place] [address]- 2640 Dec, [facility] [place] [facility] [address] [id number] [place] [address]- 5083 Dec, [facility] [place] [facility] [address] [id number] [place] [address]- 3724 Dec, [facility] [place] [facility] [address] [id number] [place] [address]- 9238 20 Nov, 2012 [facility] [place] [facility] [address] [id number] [place] [address]- 2108 13 Nov, 2012 [facility] [place] [facility] [address] [id number] [place] [address]- 0216 12 Nov, 2012 [facility] [place] [facility] [address] [id number] [place] [address]- 2936 Nov, [facility] [place] [facility] [address] [id number] [place] [address]- 2888 Nov, [facility] [place] [facility] [address] [id number] [place] [address]- 1212 Nov, [facility] [place] [facility] [address] [id number] [place] [address]- 6623 Oct, [facility] [place] [facility] [address] [id number] [place] [address]- 8445 Oct, [facility] [place] [facility] [address] [id number] [place] [address]- 7573 Sep, [facility] [place] [facility] [address] [id number] [place] [address]- 7203 Sep, [facility] [place] [facility] [address] [id number] [place] [address]- 8498 Sep, [facility] [place] [facility] [address] [id number] [place] [address]- 2837 Sep, [facility] [place] [facility] [address] [id number] [place] [address]- 4059 Sep, [facility] [place] [facility] [address] [id number] [place] [address]- 0792 Sep, [facility] [place] [facility] [address] [id number] [place] [address]- 6196 Sep, [facility] [place] [facility] [address] [id number] [place] [address]- 6229 Aug, [facility] [place] [facility] [address] [id number] [place] [address]- 2833 Aug, [facility] [place] [facility] [address] [id number] [place] [address]- 6721 Aug, [facility] [place] [facility] [address] [id number] [place] [address]- 4725 Aug, [facility] [place] [facility] [address] [id number] [place] [address]- 3807 Aug, [facility] [address] [id number] [place] [address]- [address] Aug, [facility] [address] [id number] [place] [address]- 2419 July, [facility] [address] [id number] [place] [address]- [address] July, [facility] [address] [id number] [place] [address]- 7198 July, [facility] [address] [id number] [place] [address]- 1026 July, [facility] [address] [id number] [place] [address]- 0539 July, [facility] [address] [id number] [place] [address]- 6371 July, [facility] [address] [id number] [place] [address]- 4521 Jun, [facility] [address] [id number] [place] [address]- 2863 Jun, [facility] [address] [id number] [place] [address]- 7966 Jun, [facility] [address] [id number] [place] [address]- [address] Jun, [facility] [address] [id number] [place] [address]- 5510 Jun, [facility] [address] [id number] [place] [address]- [address], [facility] [address] [id number] [place] [address] [address], [facility] [address] [id number] [place] [address] May, [facility] [address] [id number] [place] [address] 04 May, 2012 [facility] [place] [facility] [address] [id number] [place] [address] 26 Apr, 2012 [facility] [place] [facility] [address] [id number] [place] [address] Apr, [facility] [place] [facility] [address] [id number] [place] [address] 2546 18 Apr, 2012 [facility] [place] [facility] [address] [id number] [place] [address] 18 Apr, 2012 [facility] [place] [facility] [address] [id number] [place] [address] 12 Apr, 2012 [facility] [place] [facility] [address] [id number] [place] [address] 08 Apr, 2012 [facility] [place] [facility] [address] [id number] [place] [address] 07 Apr, 2012 [facility] [place] [facility] [address] [id number] [place] [address] 07 Apr, 2012 [facility] [place] [facility] [address] [id number] [place] [address] 06 Apr, 2012 [facility] [place] [facility] [address] [id number] [place] [address] Apr, [facility] [place] [facility] [address] [id number] [place] [address] 2546 Apr, [facility] [place] [facility] [address] [id number] [place] [address] Mar, [facility] [place] [facility] [address] [id number] [place] [address] Mar, [facility] [place] [facility] [address] [id number] [place] [address] Mar, [facility] [place] [facility] [address] [id number] [place] [address]120 Mar, [facility] [address] [id number] [place] [address]- [address] Mar, [facility] [address] [id number] [place] [address]- [address] Mar, [facility] [address] [id number] [place] [address]- [address] Mar, [facility] [address] [id number] [place] [address]- [address], [facility] [address] [id number] [place] [address]- [address], [facility] [address] [id number] [place] [address]- [address], [facility] [address] [id number] [place] [address]- [address] Mar, [facility] [address] [id number] [place] [address]- [address], [facility] [address] [id number] [place] [address]- [address] Mar, [facility] [address] [id number] [place] [address] [address] Feb, [facility] [address] [id number] [place] [address] [address] Feb, [facility] [address] [id number] [place] [address] [address] Feb, [facility] [address] [id number] [place] [address] [address] Feb, [facility] [address] [id number] [place] [address] [address] Feb, [facility] [address] [id number] [place] [address]473 Feb, [facility] [place] [facility] [address] [id number] [place] [address] 1729 Feb, [facility] [place] [facility] [address] [id number] [place] [address] 8426 Feb, [facility] [place] [facility] [address] [id number] [place] [address] Feb, [facility] [place] [facility] [address] [id number] [place] [address] Feb, [facility] [place] [facility] [address] [id number] [place] [address]- [address] Feb, [facility] [place] [facility] [address] [id number] [place] [address]39 Feb, [facility] [place] [facility] [address] [id number] [place] [address]- [address] Feb, [facility] [place] [facility] [address] [id number] [place] [address] Feb, [facility] [place] [facility] [address] [id number] [place] [address] 2714 Feb, [facility] [place] [facility] [address] [id number], [place] [address] Jan, [facility] [place] [facility] [address] [id number], [place] [address] Jan, [facility] [place] [facility] [address] [id number], [place] [address] Jan, [facility] [place] [facility] [address] [id number] [place] [address] Jan, [facility] [place] [facility] [address] [id number], [place] [address] Dec, [facility] [place] [facility] [address] [id number] [place] [address] Dec, [facility] [place] [facility] [address] [id number] [place] [address]- [address] Dec, 2011 [facility] [place] [facility] [address] [id number] [place] [address]- 1514 Dec, 2011 [facility] [place] [facility] [address] [id number] [place] [address]186 Dec, 2011 [facility] [place] [facility] [address] [id number] [place] [address] 69[address] Dec, 2011 [facility] [place] [facility] [address] [id number] [place] [address]- [address] 16 Dec, 2011 [facility] [place] [facility] [address] [id number] [place] [address]- [address]69 16 Dec, 2011 [facility] [place] [facility] [address] [id number] [place] [address]- [address] 07 Dec, 2011 [facility] [place] [facility] [address] [id number] [place] [address]- [address]27 04 Dec, 2011 [facility] [place] [facility] [address] [id number] [place] [address] 03 Dec, 2011 [facility] [place] [facility] [address] [id number] [place] [address] 25 Sep, 2011 [facility] [place] [facility] [address] [facility] [id number] [place] [address] 7[address] 24 Sep, 2011 [facility] [place] [facility] [address] [id number] [place] [address] 20 Sep, 2011 [facility] [place] [facility] [address] [id number], [place] [address] 19 Sep, 2011 [facility] [place] [facility] [address] [id number] [place] [address] 17 Sep, 2011 [facility] [place] [facility] [address] [facility] [id number] [place] [address] 5086 16 Sep, 2011 [facility] [place] [facility] [address] [facility] [id number], [place] [address] 14 Sep, 2011 [facility] [place] [facility] [address] [id number] [place] [address] 9183 13 Sep, 2011 [facility] [place] [facility] [address] [id number] [place] [address] 5846 12 Sep, 2011 [facility] [place] [facility] [address] [id number] [facility] [place] [address] 2546 07 Sep, 2011 [facility] [place] [facility] [address] [id number] [place] [address]686 06 Sep, 2011 [facility] [place] [facility] [address] [id number] [place] [address] 2545 06 Sep, 2011 [facility] [place] [facility] [address] [id number] [place] [address] 4428 05 Nov, 2011 [facility] [place] [facility] [address] [id number] [place] [address] 1421 29 Oct, 2011 [facility] [place] [facility] [address] [id number] [place] [address] 5474 29 Oct, 2011 [facility] [place] [facility] [address] [id number] [place] [address] 4048 Oct, [facility] [place] [facility] [address] [id number] [place] [address]- 6966 28 Oct, 2011 [facility] [place] [facility] [address] [id number] [place] [address] 1734 Oct, [facility] [place] [facility] [address] [id number] [place] [address] 2547 Oct, [facility] [place] [facility] [address] [id number] [place] [address] 5180 20 Oct, 2011 [facility] [place] [facility] [address] [id number] [place] [address]- 254 16 Oct, 2011 [facility] [place] [facility] [address] [id number] [place] [address]- 2544 15 Oct, 2011 [facility] [place] [facility] [address] [id number] [place] [address] 8401 Oct, [facility] [place] [facility] [address] [id number] [place] [address]- 1412 Oct, [facility] [place] [facility] [address] [id number] [place] [address] 4767 Sep, [facility] [place] [facility] [address] [id number] [place] [address] 6776 Sep, [facility] [place] [facility] [address] [id number] [place] [address] 8572 Sep, [facility] [place] [facility] [address] [id number] [place] [address] 9943 Sep, [facility] [place] [facility] [address] [id number] [place] [address]- 7426 Sep, [facility] [place] [facility] [address] [id number] [place] [address] 3940 Sep, [facility] [place] [facility] [address] [id number] [place] [address] 0941 Aug, [facility] [place] [facility] [address] [id number] [place] [address] 1833 July, [facility] [place] [facility] [address] [id number] [place] [address] 2022 July, [facility] [place] [facility] [address] [id number] [place] [address] 3517 Jun, [facility] [place] [facility] [address] [id number] [place] [address]- 5192 Jun, [facility] [place] [facility] [address] [id number] [place] [address] 3949 Jun, [facility] [place] [facility] [address] [id number] [place] [address]- 1009 Jun, [facility] [place] [facility] [address] [id number] [place] [address] 4649 Jun, [facility] [place] [facility] [address] [id number] [place] [address]- 0713 10 Jun, 2011 [facility] [address] [id number] [place] [address] 0316 09 Jun, 2011 [facility] [place] [facility] [address] [id number] [place] [address]- 4446 08 Jun, 2011 [facility] [address] [id number] [place] [address]- 5545 03 Jun, 2011 [facility] [place] [facility] [address] [id number] [place] [address] 1994 Jun, [facility] [address] [id number] [place] [address] 9117 Jun, [facility] [place] [facility] [address] [id number] [place] [address] 1712 19 May, 2011 [facility] [place] [facility] [address] [id number] [place] [address] 7978 16 May, 2011 [facility] [address] [id number] [place] [address]- 2848 14 May, 2011 [facility] [place] [facility] [address] [id number] [place] [address] 1365 06 May, [address] [facility] [address] [id number] [place] [address]- 9465 28 Apr, 2011 [facility] [place] [facility] [address] [id number] [place] [address]- 6317 28 Apr, 2011 [facility] [place] [facility] [address] [id number] [place] [address] 8486 27 Apr, 2011 [facility] [place] [facility] [address] [id number] [place] [address] 23 Apr, 2011 [facility] [place] [facility] [address] [id number] [place] [address]- 5270 23 Apr, 2011 [facility] [place] [facility] [address] [id number] [place] [address] 6936 Apr, [facility] [place] [facility] [address] [id number] [place] [address]- 5323 Apr, [facility] [place] [facility] [address] [id number] [place] [address] 4920 Apr, [facility] [place] [facility] [address] [id number] [place] [address]- 1834 Mar, [facility] [place] [facility] [address] [id number] [place] [address]- 8434 Mar, [facility] [place] [facility] [address] [id number] [place] [address]- 8090 Mar, [facility] [place] [facility] [address] [id number] [place] [address]- 4662 Mar, [facility] [place] [facility] [address] [id number] [place] [address]- 6749 Mar, [facility] [place] [facility] [address] [id number] [place] [address]- 5263 Mar, [facility] [place] [facility] [address] [id number] [place] [address]- 2132 Mar, [facility] [place] [facility] [address] [id number] [place] [address]- 4755 Mar, [facility] [place] [facility] [address] [id number] [place] [address]- 9557 Mar, [facility] [place] [facility] [address] [id number] [place] [address]- 6726 Mar, [facility] [place] [facility] [address] [id number] [place] [address]- 6374 Mar, [facility] [place] [facility] [address] [id number] [place] [address]- 4718 Mar, [facility] [place] [facility] [address] [id number] [place] [address]- 0277 Mar, [facility] [place] [facility] [address] [id number] [place] [address]- 4111 Mar, [facility] [address] [id number] [place] [address]- 9053 Mar, [facility] [address] [id number] [place] [address] Mar, [facility] [address] [id number] [place] [address]- 0826 Feb, [facility] [address] [id number] [place] [address]- 7735 Feb, [facility] [address] [id number] [place] [address]- 8713 Feb, [facility] [address] [id number] [place] [address]- 1248 Jan, [facility] [address] [id number] [place] [address]- 7627 Jan, [facility] [address] [id number] [place] [address]- 0288 Jan, [facility] [address] [id number] [place] [address]- 7763 Dec, [facility] [address] [id number] [place] [address]- 1496 Dec, [facility] [address] [id number] [place] [address]- 7453 16 Nov, 2010 [facility] [place] [facility] [address] [id number] [place] [address]- 3839 Oct, [facility] [place] [facility] [address] [id number] [place] [address]- 5756 Oct, [facility] [place] [facility] [address] [id number] [place] [address]- 8047 Oct, [facility] [place] [facility] [address] [id number] [place] [address]- 3377 Sep, [facility] [address] [facility] [id number] [place] [address]- 2546 Apr, [facility] [address] [facility] [id number] [place] [address]- 2546 Feb, [facility] [address] [facility] [id number] [place] [address]- 2546 Jan, IMMUNIZATIONS No Known Immunizations SOCIAL HISTORY Never Assessed REASON FOR VISIT Medication Clarification PLAN OF CARE VITAL SIGNS MEDICATIONS Unknown [...] 2/2 Benzos OD, pneumonia MRSA, [facility]RA, Hypokalemia-- [facility] 12/20/2015 Hospitalization History COPD exacerbation, Asthma-[facility] 09/21/16 Hospitalization History COPD-[facility] 12/30/2016 [facility] so[facility] Hospitalization History for COPD x2 Mar 2017 Hospitalization History Upper GI bleed at apr 2017 Hospitalization History [facility]- COPD Exacerbation, diarrhea 05/23/2017 Hospitalization History COPD exacerbation-[facility] 06/13/17 Hospitalization History CHF 09/09/2017
--- OUTSIDE RECORDS SUMMARY | 2017-11-19 13:20 | XMS REPORT ---
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 Name Role Phone ALIZA CARTER Unavailable PROBLEMS Type Condition ICD9-CM Code [id number] Code Onset Dates Condition Status SNOMED Code Problem Bipolar disorder with depression F31.30 Active 52882726 Problem Other emphysema J43.8 Active 07614368 Problem Migraine without aura and without status migrainosus, not intractable G43.009 Active 714704063 Problem Anxiety F41.9 Active 36453487 Problem COPD with exacerbation J44.1 Active 988082258 Problem Methamphetamine use disorder, moderate, 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 Active 48907030 Problem Chronic bronchitis, unspecified chronic bronchitis type J42 Active 95145937 Problem Intractable cyclical vomiting with nausea G43.A1 Active 67575845 Problem Diabetes E11.9 Active 703629666 Problem 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 Active Problem Tobacco abuse Z72.0 Active 77370081 Problem Examination of eyes and vision V72.0 Active 196798464 Problem Chronic constipation K59.09 Active 056200829 Problem Memory loss R41.3 Active 00833714 Problem Migraine G43.909 Active 68099793 Problem Bipolar disorder, unspecified F31.9 Active 92435179 Problem TMJ (sprain of temporomandibular joint) S03.4XXA Active 84737479 Problem Generalized anxiety disorder F41.1 Active 47262252 ALLERGIES Substance Reaction Event Type Date Status amitriptyline OD on medication, causes parasonias Non Drug Allergy Sep, Active Buspar 10 Mg Tablet made legs shaky Non Drug Allergy Sep, Active Benzodiazepines NARC ALERT Broke narc contract Non Drug Allergy Sep Active Narcotic NARC ALERT Broke Narc contract Non Drug Allergy Sep, Active ENCOUNTERS Encounter Location Date Diagnosis [facility] [address] [address] Oct, [facility] [address] [address] Oct, [facility] [address], [place] [address] 4[address] Oct, [facility] [address], [place] [address] Oct, [facility] [address], [place] [address] 7025 Oct, Thrush B37.0 [facility] [id number] [place] [address] 15456- 6669 Sep, COPD with exacerbation J44.1 and Anxiety F41.9 [facility] [address], [place] [address] Sep, [facility] [address] [address] 7977 Sep, [facility] [address], [place] [address] 5061 Sep, [facility] [address], [place] [address] Sep, Acute congestive heart failure, unspecified heart failure type I50.9 and Anxiety disorder, unspecified F41.9 [facility] [address], [place] [address] 42[address] Sep, Heart failure, unspecified HF chronicity, unspecified heart failure type I50.9 [facility] [address], [place] [address] 96[address] Sep, [facility] [address], [place] [address] 2883 Aug, Chronic obstructive pulmonary disease with acute exacerbation J44.1 [facility] [address], [place] [address] 8[address] Aug, [facility] [address], [place] [address] 4729 Aug, [facility] [address] [address] [address] July, [facility] [address], [place] [address] 3176 July, [facility] [id number] [place] [address] 08536- 6611 July, Diabetes E11.9 and Chronic obstructive pulmonary disease with acute exacerbation J44.1 [facility] [id number] [place] [address] 68475- 9342 Jun, Chronic obstructive pulmonary disease with acute exacerbation J44.1 ; Diabetes E11.9 and Tobacco abuse Z72.0 [facility] [id number] [address] 2802 Jun, [facility] [address], [place] [address]- 5179 Jun, [facility] [id number] [place] [address] 41211- 8698 May, [facility] [address], [place] [address] 4[address] May, [facility] [address], [place] [address] 17 May, 2017 [facility] [address], [place] [address]- 6021 16 May, 2017 [facility] [address] [place] [address] 46614- 0958 15 May, 2017 [facility] [address], [place] [address]- 2113 14 May, 2017 Diarrhea, unspecified type R19.7 and Intractable cyclical vomiting with nausea G43.A1 [facility] [id number] [place] [address] 39970- 0883 12 May, 2017 [facility] [address] 36745- 9952 05 May, 2017 [facility] [id number] [place] [address] 69576- 1537 28 Apr, 2017 COPD exacerbation J44.1 ; Esophageal candidiasis B37.81 ; Other acute gastritis with hemorrhage K29.01 and Acute posthemorrhagic anemia D62 [facility] [address] [address]- 6342 21 Apr, 2017 Viral illness B34.9 and COPD exacerbation J44.1 [facility] [place] [id number] [place] [address] 35172 -4261 19 Apr, 2017 Shortness of breath R06.02 and Pneumonia of both lower lobes due to infectious organism J18.9 [facility] [place] [id number] [place] [address] 84074 -7828 Mar, COPD with acute exacerbation J44.1 [place] [address] [address]70- 1769 Mar, Chronic obstructive pulmonary disease with acute exacerbation J44.1 and Diabetes E11.9 [place] [id number] [place] [address] 38352- 2856 Mar, [place] [id number] [place] [address] 54876- 1729 Mar, [facility] [id number] [place] [address] 64643 -4228 Mar, COPD exacerbation J44.1 [place] [address] [address]- 3280 Mar, [place] [id number] [place] [address] 53248- 0253 Mar, Migraine G43.909 ; Hypokalemia E87.6 and Type 2 diabetes mellitus without complications E11.9 [facility] [address], [place] [address] 1612 15 Feb, 2017 [facility] [id number] [place] [address] 72349- 8298 Feb, [facility] [address] [place] [address] 30690- 1023 Feb, Methamphetamine use disorder, moderate, 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 ; Major depressive disorder, recurrent, moderate F33.1 ; Anxiety disorder, unspecified F41.9 and Tobacco abuse Z72.0 [facility] [address] [place] [address] 63263- 6996 30 Jan, 2017 Major depressive disorder, recurrent, moderate F33.1 [place] [id number] [place] [address] 71466- 5912 16 Jan, 2017 [place] [id number] [place] [address] 30409- 1517 14 Jan, 2017 [facility] [address] [place] [address] 84297- 7191 Jan, Major depressive disorder, recurrent, moderate F33.1 [place] [address] [place] [address] 66322- 7688 Jan, Major depressive disorder, recurrent, moderate F33.1 ; Anxiety disorder, unspecified F41.9 ; Methamphetamine use disorder, moderate, 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 and Tobacco abuse Z72.0 [place] [address] [place] [address] 39904- 9535 07 Jan, 2017 [facility] [address] [place] [address] 11658- 5339 Jan, Chronic obstructive pulmonary disease with acute exacerbation J44.1 and Diabetes E11.9 [facility] [address] [place] [address] 15446- 5320 06 Jan, 2017 [facility] [id number] [place] [address] 56911- 9663 Jan, [facility] [address] [place] [address] 77880- 3670 Dec, Acute respiratory failure with hypoxia J96.01 ; Chronic bronchitis, unspecified chronic bronchitis type J42 and Tobacco use Z72.0 [facility] [address] [place] [address] 64353- 5359 Dec, [facility] [id number] [place] [address] [id number] Nov, Dental caries K02.9 and Dental examination Z01.20 [facility] [id number] [place] [address] 20187- 0255 Nov, Major depressive disorder, recurrent, moderate F33.1 ; Anxiety disorder, unspecified F41.9 and 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 [facility] [address] [place] [address] [id number] Oct, Dental examination Z01.20 [facility] [id number] [place] [address] 22652- 9939 Oct, [facility] [id number] [place] [address] 36312- 8906 Oct, Diabetes E11.9 and Thrush B37.0 [facility] [id number] [place] [address] 11602- 5313 Oct, [facility] [id number] [place] [address] 31375- 9278 Oct, [facility] [id number] [place] [address] 95830- 4673 Oct, [facility] [id number] [place] [address] 35824- 4032 Sep, Major depressive disorder, recurrent, moderate F33.1 ; Anxiety disorder, unspecified F41.9 and Bipolar disorder, unspecified F31.9 [facility] [id number] [place] [address] 83332- 7108 Sep, Acute exacerbation of chronic obstructive pulmonary disease (COPD) J44.1 and Migraine G43.909 [facility] [id number] [place] [address] 14045- 1081 Sep, [facility] [id number] [place] [address] [id number] Sep, [facility] [id number] [place] [address] 52469- 5803 Sep, Acute exacerbation of chronic obstructive pulmonary disease (COPD) J44.1 [facility] [id number] [place] [address] 62501 -9314 Sep, Acute exacerbation of chronic obstructive pulmonary disease (COPD) J44.1 [facility] [id number] [place] [address] 60806- 0945 Aug, [facility] [id number] [place] [address] 89460- 5696 Aug, Major depressive disorder, recurrent, moderate F33.1 ; Anxiety disorder, unspecified F41.9 and 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 [facility] [address] [place] [address] 80178- 0365 Aug, Wheezing R06.2 ; Non morbid obesity due to excess calories E66.09 ; Migraine without aura and without status migrainosus, not intractable G43.009 and Tobacco abuse Z72.0 [facility] [address] [place] [address] [id number] 14 Aug, 2016 Encounter for dental examination Z01.20 [facility] [address] [place] [address] 07384- 4954 02 Aug, 2016 Major depressive disorder, recurrent, moderate F33.1 ; Anxiety disorder, unspecified F41.9 and 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 [facility] [address] [place] [address] 46239- 9477 July, [place] [id number] [place] [address] 57017- 1321 July, [facility] [id number] [place] [address] 07335- 2092 July, [place] [id number] [place] [address] 44641- 5766 July, Diabetes E11.9 [place] [id number] [place] [address] 47914- 9605 Jun, Major depressive disorder, recurrent, moderate F33.1 [place] [id number] [place] [address] 57642- 8282 Jun, Major depressive disorder, recurrent, moderate F33.1 ; 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 ; Generalized anxiety disorder F41.1 and Bipolar disorder, unspecified F31.9 [place] [id number] [place] [address] 87549- 6196 Jun, Diabetes E11.9 ; Migraine G43.909 ; Thrush B37.0 and Wheezing R06.2 [facility] [address] [id number] Jun, Dental examination Z01.20 [place] [id number] [place] [address] 95547- 3518 Jun, [facility] [id number] [place] [address] 85363- 5945 Jun, Major depressive disorder, recurrent, moderate F33.1 ; Anxiety disorder, unspecified F41.9 and Other 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 [facility] [id number] [place] [address] 41939- 4802 Jun, [facility] [id number] [place] [address] 16920- 7972 Jun, Wheezing R06.2 [facility] [address] [id number] Jun, Dental caries K02.9 [facility] [id number] [place] [address] 90888- 1602 Jun, Major depressive disorder, recurrent, moderate F33.1 ; Anxiety disorder, unspecified F41.9 and 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 [place] [id number] [place] [address] 64581- 0007 Jun, RLQ abdominal pain R10.31 ; Diabetes E11.9 ; Obesity, unspecified obesity severity, unspecified obesity type E66.9 ; Wheezing R06.2 and Abnormal urinalysis R82.90 [place] [address] 30240- 5876 May, [place] [id number] [place] [address] 63067- 9357 May, Well woman exam Z01.419 ; Breast cancer screening Z12.39 ; Cervical cancer screening Z12.4 ; Urinary frequency R35.0 ; Edema, unspecified type R60.9 and Chronic constipation K59.09 [place] [id number] [place] [address] 78445- 5230 May, Major depressive disorder, recurrent, moderate F33.1 ; Anxiety disorder, unspecified F41.9 and 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 [facility] [id number] [place] [address] [id number] May, Dental examination Z01.20 [place] [id number] [place] [address] 26110- 4570 May, [place] [address] 32448- 2035 May, [facility] [id number] [place] [address] 35875- 3315 May, Chronic constipation K59.09 [place] [address] 31481- 1017 Apr, [place] [address] [place] [address] 05603- 6271 Apr, Major depressive disorder, recurrent, moderate F33.1 ; Anxiety disorder, unspecified F41.9 and 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 [place] [address] [place] [address] 96171- 5433 Apr, [place] [id number] [place] [address] 85907- 7553 Mar, Major depressive disorder, recurrent, moderate F33.1 [place] [id number] [place] [address] 14595- 1514 Mar, Major depressive disorder, recurrent, moderate F33.1 ; Generalized anxiety disorder F41.1 and Bipolar I disorder, most recent episode depressed with anxious distress F31.30 [place] [id number] [place] [address] 28216- 8057 Mar, Diabetes E11.9 ; Non morbid obesity due to excess calories E66.09 ; Breast cancer screening Z12.39 and Encounter for immunization Z23 [place] [id number] [place] [address] 46296- 7752 Mar, Major depressive disorder, recurrent, moderate F33.1 ; Anxiety disorder, unspecified F41.9 and 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 [place] [address] [place] [address] 19567- 0057 Mar, [place] [id number] [place] [address] 99573- 1820 Feb, Major depressive disorder, recurrent, moderate F33.1 ; Anxiety disorder, unspecified F41.9 and 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 [place] [address] [place] [address] 18903- 4280 Feb, [place] [id number] [place] [address] 66685- 5984 Feb, [facility] [id number] [place] [address] 87461- 7022 Jan, Major depressive disorder, recurrent, moderate F33.1 ; Generalized anxiety disorder F41.1 and Bipolar disorder, current episode depressed, severe, without psychotic features F31.4 [facility] [address] [place] [address] 31095- 5381 Jan, Major depressive disorder, recurrent, moderate F33.1 ; Anxiety disorder, unspecified F41.9 and 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 [facility] [id number] [place] [address] 28021- 4522 Jan, Bronchitis J40 [facility] [id number] [place] [address] 09909- 4919 Jan, [facility] [id number] [place] [address] 11539- 8478 Jan, [facility] [id number] [place] [address] 93788- 3304 Jan, Elbow injury, right, initial encounter S59.901A ; Multiple contusions T14.8 and Cervical strain, acute, initial encounter S16.1XXA [facility] [address] [place] [address] 42701- 2974 Dec, Major depressive disorder, recurrent, moderate F33.1 ; Generalized anxiety disorder F41.1 and Bipolar disorder with depression F31.30 [facility] [address] [place] [address] 21784- 1687 Dec, [facility] [id number] [place] [address] 12570- 8917 Dec, [facility] [id number] [place] [address] 93156- 4996 Dec, [facility] [id number] [place] [address] 78189- 7250 Dec, [place] [address], [place] [address]- 0020 Dec, Yeast infection B37.9 [place] [id number] [place] [address] 69402- 5901 Dec, Pneumonia of both lungs due to methicillin resistant Staphylococcus aureus (MRSA), unspecified part of lung J15.212 and Benzodiazepine overdose, accidental or unintentional, subsequent encounter T42.4X1D [place] [id number] [place] [address] 38638- 9995 Dec, [place] [id number] [place] [address] 11534- 7083 Dec, [place] [id number] [place] [address] 54105- 4465 Dec, Knee pain, left M25.562 and Edema, unspecified type R60.9 [place] [id number] [place] [address] 92085- 1131 Dec, [facility] [address] [place] [address] 89279- 7349 Dec, Anxiety disorder, unspecified F41.9 and Bipolar disorder, unspecified F31.9 [place] [address] [place] [address] 84943- 7997 Nov, Major depressive disorder, recurrent, moderate F33.1 ; Anxiety disorder, unspecified F41.9 and 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 [place] [address] [address]- 1538 Nov, [facility] [id number] [place] [address] 59623- 5081 Nov, Migraine without aura and without status migrainosus, not intractable G43.009 [place] [address] [place] [address] 11311- 5903 Nov, Migraine G43.909 [place] [address], [place] [address]- 3550 Nov, [place] [id number] [place] [address] 57042- 5499 Nov, Major depressive disorder, recurrent, moderate F33.1 ; Anxiety disorder, unspecified F41.9 and 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 [place] [id number] [place] [address] 89158- 8275 Oct, Chronic constipation K59.09 and Obesity, unspecified obesity severity, unspecified obesity type E66.9 [place] [id number] [place] [address] 87325- 2758 Oct, Obesity, unspecified obesity severity, unspecified obesity type E66.9 ; Chronic constipation K59.09 and Anxiety disorder, unspecified F41.9 [place] [id number] [place] [address] 04975- 8975 Oct, [place] [id number] [place] [address] 59956- 0370 Sep, Diabetes E11.9 ; Edema, unspecified type R60.9 ; Varicose vein of leg I83.90 and Obesity, unspecified obesity severity, unspecified obesity type E66.9 [place] [id number] [place] [address] 23410- 2192 Sep, Edema, unspecified type R60.9 ; Diabetes E11.9 and Knee pain , left M25.562 [place] [address] [place] [address] 64770- 2031 Sep, [place] [id number] [place] [address] 32552- 1488 Sep, [place] [id number] [place] [address] 52029- 9311 Sep, Major depressive disorder, recurrent, moderate F33.1 ; Generalized anxiety disorder F41.1 and Bipolar disorder, unspecified F31.9 [facility] [address] [address]- 0481 30 Aug, 2015 Chondromalacia of left knee M94.262 [facility] [address] [place] [address] 13339- 9854 24 Aug, 2015 Major depressive disorder, recurrent, moderate F33.1 ; Anxiety disorder, unspecified F41.9 and 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 [facility] [id number] [place] [address] 23821- 6915 Aug, [facility] [id number] [place] [address] 36350- 4452 Aug, Osteoarthritis of left knee M17.9 [facility] [facility] [id number] [place] [address] 09453- 9284 Aug, [facility] [id number] [place] [address] 87327- 9940 July, Major depressive disorder, recurrent, moderate F33.1 ; Anxiety disorder, unspecified F41.9 and 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 [facility] [id number] [place] [address] 67868- 7987 July, [facility] [address] [address] 3800 July, Chronic constipation K59.09 [facility] [id number] [place] [address] 24938- 5883 Jun, [facility] [id number] [place] [address] 22637- 6196 Jun, [facility] [id number] [place] [address] 76052- 5958 14 Jun, 2015 Osteoarthritis of left knee M17.9 [facility] [address] [address]- 0484 Jun, [facility] [id number] [place] [address] 54053- 1964 Jun, Generalized anxiety disorder F41.1 ; Bipolar disorder, unspecified F31.9 and Major depressive disorder, recurrent, moderate F33.1 [facility] [facility] [id number] [place] [address] 35935- 4382 Jun, Migraine G43.909 [place] [address] 29690- 6965 Jun, Left knee pain M25.562 ; Chronic constipation K59.09 ; Dry mouth R68.2 ; Yeast vaginitis B37.3 and Memory loss R41.3 [place] [address] 48685- 0573 Jun, [place] [address] 86918- 1483 May, [place] [address] 43519- 5075 May, [place] [address] 19484- 1592 May, [place] [address] 11626- 2781 May, [place] [address] 44437- 3481 May, Acute bronchitis with COPD J44.0 ; Knee pain, left M25.562 and Encounter for tobacco use cessation counseling Z71.6 [facility] [id number] [place] [address] 55664- 6130 May, [place] [facility] [address] 29985- 2471 Apr, Diabetes E11.9 ; TMJ (sprain of temporomandibular joint) S03.4XXA ; Tobacco abuse Z72.0 ; Migraine G43.909 and Anxiety F41.9 [place] [id number] [place] [address]- 1087 Apr, Generalized anxiety disorder F41.1 and Bipolar disorder, unspecified F31.9 [facility] [id number] [place] [address] 85303- 9876 Apr, Major depressive disorder, recurrent, moderate F33.1 ; Anxiety disorder, unspecified F41.9 and 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 [facility] [id number] [place] [address] 63257- 2898 Apr, [facility] [id number] [place] [address] 60908- 8458 Mar, [facility] [id number] [place] [address] 16746- 5057 Feb, [facility] [id number] [place] [address] 93583- 4606 Feb, Major depressive disorder, recurrent, moderate F33.1 ; Anxiety disorder, unspecified F41.9 and 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 [facility] [id number] [place] [address] 32074- 3081 Feb, [facility] [id number] [place] [address] 98995- 2525 Feb, Generalized anxiety disorder F41.1 and Bipolar disorder, unspecified F31.9 [facility] [id number] [place] [address] 97673- 0368 Jan, [facility] [id number] [place] [address] 59937- 2224 Jan, [facility] [id number] [place] [address] 54044- 3602 Jan, Bipolar disorder, unspecified F31.9 and Generalized anxiety disorder F41.1 [facility] [id number] [place] [address] 16966- 3557 Dec, [facility] [id number] [place] [address] 37828- 5548 14 Dec, 2014 Bipolar disorder, unspecified F31.9 and Generalized anxiety disorder F41.1 [facility] [id number] [place] [address] 46531- 4566 Dec, Generalized anxiety disorder F41.1 and Major depressive disorder, recurrent, moderate F33.1 [facility] [id number] [place] [address] 92761- 5512 Oct, Headache 784.0 ; Cough 786.2 ; Vomiting and diarrhea 787.03 and Dysuria 788.1 [facility] [address] 37113- 8831 Aug, [facility] [id number] [place] [address] 85143- 7326 Aug, Headache 784.0 and Shortness of breath 786.05 [facility] [id number] [place] [address] 97307- 3752 Aug, [facility] [id number] [place] [address] 75934- 0454 Aug, Migraine 346.90 [facility] [id number] [place] [address] 08260- 7268 Jun, [facility] [id number] [place] [address] 30629- 9131 Jun, [facility] [id number] [place] [address] 10539- 7489 May, [facility] [id number] [place] [address] 82766- 4879 May, [facility] [id number] [place] [address] 52152- 5652 May, [facility] [id number] [place] [address] 41872- 7576 May, [facility] [id number] [address]- 6986 May, [facility] [place] [facility] [address] [id number] [place] [address]- 4310 May, [facility] [place] [facility] [address] [id number] [place] [address]- 4698 Apr, 2014 [facility] [place] [facility] [address] [id number] [place] [address]- 7740 Apr, 2014 [facility] [place] [facility] [address] [id number] [place] [address]- 7832 Apr, 2014 [facility] [place] [facility] [address] [id number] [place] [address]- 6357 Apr, [facility] [place] [facility] [address] [id number] [place] [address]- 5533 Apr, [facility] [place] [facility] [address] [id number] [place] [address]- 8702 Mar, [facility] [place] [facility] [address] [id number] [place] [address]- 4848 Mar, [facility] [place] [facility] [address] [id number] [place] [address]- 8741 Mar, [facility] [place] [facility] [address] [id number] [place] [address]- 0605 Mar, [facility] [place] [facility] [address] [id number] [place] [address]- 0653 Feb, [facility] [place] [facility] [address] [id number] [place] [address]- 6387 Feb, [facility] [place] [facility] [address] [id number] [place] [address]- 2185 Feb, [facility] [place] [facility] [address] [id number] [place] [address]- 2176 Feb, [facility] [place] [facility] [address] [id number] [place] [address]- 4399 Feb, [facility] [place] [facility] [address] [id number] [place] 1036 16 Feb, 2014 [facility] [place] [facility] [address] [id number] [place] [address]- 0717 Feb, [facility] [place] [facility] [address] [id number] [place] 4427 Feb, [facility] [place] [facility] [address] [id number] [place] 9737 Feb, [facility] [place] [facility] [address] [id number] [place] [address]- 7211 Feb, [facility] [place] [facility] [address] [id number] [place] [address]- 2329 Feb, [facility] [place] [facility] [address] [id number] [place] [address]- 3462 Feb, [facility] [place] [facility] [address] [id number] [place] [address]- 2463 Jan, [facility] [place] [facility] [address] [id number] [place] [address]- 9630 Jan, [facility] [place] [facility] [address] [id number] [place] [address]- 5530 Dec, [facility] [place] [facility] [address] [id number] [address]- 6994 Dec, [facility] [place] [facility] [address] [id number], [place] [address]- 2372 Dec, [facility] [place] [facility] [address] [id number] [place] [address]- 1824 Dec, [facility] [place] [facility] [address] [id number] 3888 Dec, [facility] [place] [facility] [address] [id number] 6423 Dec, [facility] [place] [facility] [address] [id number] [place] [address]- 0234 Sep, 2013 [facility] [place] [facility] [address] [id number] [place] [address]- 0449 Sep, [facility] [place] [facility] [address] [id number] [place] [address]- 9217 Sep, [facility] [place] [facility] [address] [id number] [place] [address]- 7800 Sep, 2013 [facility] [place] [facility] [address] [id number] [place] [address]- 6428 Sep, 2013 [facility] [place] [facility] [address] [id number] [place] [address]- 0600 Sep, [facility] [place] [facility] [address] [id number] [place] [address]- 9562 Sep, [facility] [place] [facility] [address] [id number] [place] [address]- 9469 Sep, [facility] [place] [facility] [address] [id number] [place] [address]- 0257 Sep, [facility] [place] [facility] [address] [id number] [place] [address]- 6124 Sep, [facility] [place] [facility] [address] [id number] [place] [address]- 1064 Aug, [facility] [place] [facility] [address] [id number] [place] [address]- 6860 Aug, [facility] [place] [facility] [address] [id number] [place] [address]- 0870 Aug, [facility] [place] [facility] [address] [id number] [place] [address]- 9110 Aug, [facility] [place] [facility] [address] [id number] [place] [address]- 9571 Aug, [facility] [place] [facility] [address] [id number] [place] [address]- 2852 Aug, [facility] [place] [facility] [address] [id number] [place] [address]- 0516 Aug, [facility] [place] [facility] [address] [id number] [place] [address]- 6716 Aug, [facility] [place] [facility] [address] [id number] [place] [address]- 6272 Aug, [facility] [place] [facility] [address] [id number] [place] [address]- 9417 Aug, [facility] [place] [facility] [address] [id number] [place] [address]- 5284 Aug, [facility] [place] [facility] [address] [id number] [place] [address]- 0613 Aug, [facility] [place] [facility] [address] [id number] [place] [address]- 2920 Aug, [facility] [place] [facility] [address] [id number] [place] [address]- 6117 July, [facility] [place] [facility] [address] [id number] [place] [address]- 8701 July, [facility] [place] [facility] [address] [id number] [place] [address]- 7452 July, [facility] [place] [facility] [address] [id number] [place] [address]- 4983 July, [facility] [place] [facility] [address] [id number] [place] [address]- 6428 July, [facility] [place] [facility] [address] [id number] [place] [address]- 1143 July, [facility] [place] [facility] [address] [id number] [place] [address]- 4058 July, [facility] [place] [facility] [address] [id number] [place] [address]- 7350 Jun, [facility] [place] [facility] [address] [id number] [place] [address]- 5013 23 Jun, 2013 [facility] [place] [facility] [address] [id number] [place] [address]- 0784 18 Jun, 2013 [facility] [place] [facility] [address] [id number] [place] [address]- 9785 16 Jun, 2013 [facility] [place] [facility] [address] [id number] [place] [address]- 7807 Jun, [facility] [place] [facility] [address] [id number] [place] [address]- 8564 Jun, [facility] [place] [facility] [address] [id number] [place] [address]- 0134 Jun, [facility] [place] [facility] [address] [id number] [place] [address]- 4214 17 May, 2013 [facility] [place] [facility] [address] [id number] [place] [address]- 9851 17 May, 2013 [facility] [place] [facility] [address] [id number] [place] [address]- 6666 14 May, 2013 [facility] [place] [facility] [address] [id number] [place] [address]- 2508 14 May, 2013 [facility] [place] [facility] [address] [id number] [place] [address]- 1399 13 May, 2013 [facility] [place] [facility] [address] [id number] [place] [address]- 2093 13 May, 2013 [facility] [place] [facility] [address] [id number] [place] [address]- 8060 10 May, 2013 [facility] [place] [facility] [address] [id number] [place] [address]- 5128 10 May, 2013 [facility] [place] [facility] [address] [id number] [place] 9110 07 May, 2013 [facility] [place] [facility] [address] [id number] [place] [address]- 3217 26 Apr, 2013 [facility] [place] [facility] [address] [id number] [place] [address]- 4670 Apr, [facility] [place] [facility] [address] [id number] [place] [address]- 2159 Apr, [facility] [place] [facility] [address] [id number] [place] [address]- 2546 Apr, [facility] [place] [facility] [address] [id number] [place] [address]- 1714 Apr, [facility] [place] [facility] [address] [id number] [place] [address]- 9559 Apr, [facility] [place] [facility] [address] [id number] [place] [address]- 8217 Apr, [facility] [place] [facility] [address] [facility] [id number] [place] [address]- 8144 Apr, [facility] [place] [facility] [address] [id number] [place] [address]- 0862 Apr, [facility] [place] [facility] [address] [id number] [place] [address]- 4367 Apr, [facility] [place] [facility] [address] [facility] [id number] [place] [address]- 4407 Mar, [facility] [place] [facility] [address] [facility] [id number][place] [address]- 4873 Mar, [facility] [place] [facility] [address] [id number], [place] [address]- 0646 Mar, [facility] [place] [facility] [address] [id number] [place] [address]- 0761 Mar, [facility] [place] [facility] [address] [id number] [place] [address]- 2413 Mar, [facility] [place] [facility] [address] [facility] [id number], [place] [address]- 6875 Mar, [facility] [place] [facility] [address] [id number], [place] [address]- 4446 Mar, [facility] [address] [id number] [place] [address]- 0456 Mar, [facility] [place] [facility] [address] [facility] [id number], [place] [address]- 3766 Feb, [facility] [place] [facility] [address] [facility] [id number] [place] [address]- 0691 Feb, [facility] [place] [facility] [address] [id number], [place] [address]- 9855 Jan, [facility] [place] [facility] [address] [facility] [id number] [place] [address]- 6243 Jan, [facility] [place] [facility] [address] [facility] [id number] [place] [address]- 6574 Jan, [facility] [place] [facility] [address] [id number] [address]- 1493 Jan, [facility] [place] [facility] [address] [facility] [id number], [place] [address]- 8696 Jan, [facility] [place] [facility] [address] [id number], [place] [address]- 1911 Jan, [facility] [place] [facility] [address] [id number], [place] [address]- 7327 Jan, [facility] [place] [facility] [address] [facility] [id number], [place] [address]- 1655 05 Jan, 2013 [facility] [place] [facility] [address] [facility] [id number], [place] [address]- 8792 Dec, [facility] [place] [facility] [address] [id number], [place] [address]- 4329 10 Dec, 2012 [facility] [place] [facility] [address] [facility] [id number], [place] [address]- 0707 10 Dec, 2012 [facility] [place] [facility] [address] [facility] [id number], [place] [address]- 8876 20 Nov, 2012 [facility] [place] [facility] [address] [id number] [place] [address]- 8696 13 Nov, 2012 [facility] [place] [facility] [address] [id number] [place] [address]- 9116 12 Nov, 2012 [facility] [place] [facility] [address] [id number] [place] [address] 2546 09 Nov, 2012 [facility] [place] [facility] [address] [id number] [place] [address] 2546 06 Nov, 2012 [facility] [place] [facility] [address] [id number] [place] [address] 2542 Nov, [facility] [place] [facility] [address] [id number] [place] [address]- 8790 Oct, [facility] [place] [facility] [address] [id number] [place] [address]- 5987 Oct, [facility] [place] [facility] [address] [id number] [place] [address]- 7930 Sep, [facility] [place] [facility] [address] [id number] [place] [address]- 4280 Sep, [facility] [place] [facility] [address] [id number] [place] [address]- 0406 Sep, [facility] [place] [facility] [address] [id number] [place] [address]- 4111 Sep, [facility] [place] [facility] [address] [id number] [place] [address]- 2692 Sep, [facility] [place] [facility] [address] [id number] [place] [address]- 3805 Sep, [facility] [place] [facility] [address] [id number] [place] [address]- 2857 Sep, [facility] [place] [facility] [address] [id number] [place] [address]- 3745 Aug, [facility] [place] [facility] [address] [id number] [place] [address]- 0059 14 Aug, 2012 [facility] [address] [id number] [place] [address]- 1433 13 Aug, 2012 [facility] [place] [facility] [address] [id number] [place] [address]- 9145 12 Aug, 2012 [facility] [address] [id number] [place] [address]- 3332 Aug, [facility] [place] [facility] [address] [id number] [place] [address]- 1514 Aug, [facility] [address] [id number] [place] [address]- 3761 July, [facility] [address] [id number] [place] [address]- 6120 July, [facility] [address] [id number] [place] [address]- 8358 July, [facility] [place] [facility] [address] [id number] [place] [address] July, [facility] [address] [id number] [place] [address] July, [facility] [place] [facility] [address] [id number] [place] [address] July, [facility] [place] [facility] [address] [id number] [place] [address] Jun, [facility] [place] [facility] [address] [id number] [place] [address] Jun, [facility] [place] [facility] [address] [id number] [place] [address] 15 Jun, 2012 [facility] [place] [facility] [address] [id number] [place] [address] Jun, [facility] [place] [facility] [address] [id number] [place] [address] Jun, [facility] [place] [facility] [address] [id number] [place] [address] Jun, [facility] [place] [facility] [address] [id number] [place] [address] Jun, [facility] [place] [facility] [address] [id number] [place] [address] May, [facility] [place] [facility] [address] [facility] [id number] [place] [address] May, [facility] [place] [facility] [address] [id number] [place] [address] 26 Apr, 2012 [facility] [place] [facility] [address] [id number] [place] [address] Apr, 2012 [facility] [place] [facility] [address] [facility] [id number] [place] [address] 18 Apr, 2012 [facility] [place] [facility] [address] [id number] [address] Apr, [facility] [place] [facility] [address] [id number] [place] [address] Apr, [facility] [place] [facility] [address] [id number] [place] [address] 08 Apr, 2012 [facility] [place] [facility] [address] [facility] [id number] [place] [address] Apr, [facility] [place] [facility] [address] [facility] [id number] [place] [address] 07 Apr, 2012 [facility] [place] [facility] [address] [facility] [id number] [place] [address] 06 Apr, 2012 [facility] [place] [facility] [address] [facility] [id number] [place] [address] Apr, [facility] [place] [facility] [address] [facility] [id number] [place] [address] 03 Apr, 2012 [facility] [place] [facility] [address] [facility] [id number] [place] [address] Mar, [facility] [address] [id number] [place] [address] Mar, [facility] [address] [id number] [place] [address]30 Mar, [facility] [address] [id number] [place] [address]- [address]10 Mar, [facility] [address] [id number] [place] [address] Mar, [facility] [address] [id number] [place] [address] Mar, [facility] [address] [id number] [place] [address]- [address]228 Mar, [facility] [address] [id number] [place] [address] Mar, [facility] [address] [id number] [place] [address] Mar, [facility] [address] [id number] [place] [address] Mar, [facility] [address] [id number] [place] [address]31 Mar, [facility] [address] [id number] [place] [address]- [address]77 Mar, [facility] [place] [facility] [address] [id number] [place] [address]- [address] Mar, [facility] [place] [facility] [address] [id number] [place] [address] Feb, [facility] [place] [facility] [address] [id number] [place] [address] Feb, [facility] [place] [facility] [address] [id number] [place] [address]957 Feb, [facility] [address] [id number] [place] [address] 18 Feb, 2012 [facility] [address] [id number] [place] [address]- [address]96 Feb, [facility] [place] [facility] [address] [id number] [place] [address]- [address]36 Feb, [facility] [address] [id number] [place] [address]- [address] Feb, [facility] [place] [facility] [address] [id number] [place] [address]- 2546 Feb, [facility] [address] [id number] [place] [address]- 2426 Feb, [facility] [address] [id number] [place] [address]- [address]857 Feb, [facility] [address] [id number] [place] [address]- [address]906 Feb, [facility] [address] [id number] [place] [address]- [address] Feb, [facility] [place] [facility] [address] [id number] [place] [address]- [address] Feb, [facility] [address] [facility] [id number] [place] [address] Feb, [facility] [place] [facility] [address] [id number] [place] [address] Feb, [facility] [place] [facility] [address] [id number] [place] [address]- [address]757 Jan, [facility] [place] [facility] [address] [id number] [place] [address]- [address] Jan, [facility] [place] [facility] [address] [id number] [place] [address]- [address]756 Jan, [facility] [place] [facility] [address] [id number] [place] [address]- [address] Jan, [facility] [place] [facility] [address] [id number] [place] [address]- [address] Dec, [facility] [place] [facility] [address] [address] [id number] [place] [address] Dec, [facility] [place] [facility] [address] [id number] [place] [address] Dec, [facility] [place] [facility] [address] [id number] [place] [address] Dec, [facility] [place] [facility] [address] [id number] [place] [address] Dec, [facility] [place] [facility] [address] [id number] [place] [address] Dec, [facility] [place] [facility] [address] [facility] [id number] [place] [address] Dec, [facility] [place] [facility] [address] [id number], [place] [address] Dec, [facility] [place] [facility] [address] [facility] [id number], [place] [address] Dec, [facility] [place] [facility] [address] [facility] [id number], [place] [address] Dec, [facility] [place] [facility] [address] [facility] [id number][place] [address] Dec, [facility] [place] [facility] [address] [id number][place] [address] Nov, [facility] [place] [facility] [address] [id number], [place] [address] 24 Sep2011 [facility] [place] [facility] [address] [id number], [place] [address] 20 Nov, 2011 [facility] [place] [facility] [address] [facility] [id number][place] [address] 19 Nov, 2011 [facility] [place] [facility] [address] [id number][place] [address] 17 Sep, 2011 [facility] [place] [facility] [address] [id number] [place] [address] 2546 16 Sep, 2011 [facility] [place] [facility] [address] [id number] [place] [address] 2546 14 Sep, 2011 [facility] [place] [facility] [address] [id number] [place] [address]- [address]106 13 Sep, 2011 [facility] [place] [facility] [address] [id number] [place] [address] 9087 12 Sep, 2011 [facility] [place] [facility] [address] [id number] [place] [address] 4974 07 Sep, 2011 [facility] [place] [facility] [address] [id number] [place] [address]- 9712 06 Sep, 2011 [facility] [place] [facility] [address] [id number] [place] [address] 4090 06 Sep, 2011 [facility] [place] [facility] [address] [id number] [place] [address] 9659 05 Nov, 2011 [facility] [place] [facility] [address] [id number] [place] [address] 4774 29 Oct, 2011 [facility] [place] [facility] [address] [id number] [place] [address] 0933 29 Oct, 2011 [facility] [place] [facility] [address] [id number] [place] [address] 2540 28 Oct, 2011 [facility] [place] [facility] [address] [id number] [place] [address] 2541 28 Oct, 2011 [facility] [place] [facility] [address] [id number] [place] [address]- 5351 23 Oct, 2011 [facility] [place] [facility] [address] [id number] [place] [address] 2540 21 Oct, 2011 [facility] [place] [facility] [address] [id number] [place] [address] 4553 20 Oct, 2011 [facility] [place] [facility] [address] [id number] [place] [address]86 16 Oct, 2011 [facility] [place] [facility] [address] [id number] [place] [address] 0431 15 Oct, 2011 [facility] [place] [facility] [address] [id number] [place] [address] 1516 Oct, [facility] [place] [facility] [address] [id number] [place] [address] 6650 Oct, [facility] [place] [facility] [address] [id number] [place] [address] Sep, [facility] [place] [facility] [address] [id number] [place] [address]134 Sep, [facility] [place] [facility] [address] [id number] [place] [address] 5568 Sep, [facility] [place] [facility] [address] [id number] [place] [address] 4159 Sep, [facility] [place] [facility] [address] [id number] [place] [address] 1129 Sep, [facility] [place] [facility] [address] [id number] [place] [address] 5741 Sep, [facility] [place] [facility] [address] [id number] [place] [address] 2351 Aug, [facility] [place] [facility] [address] [id number] [place] [address] 6307 July, [facility] [place] [facility] [address] [id number] [place] [address]- 9598 July, [facility] [place] [facility] [address] [id number] [place] [address]- 0827 Jun, [facility] [place] [facility] [address] [id number] [place] [address]- 3666 Jun, [facility] [place] [facility] [address] [id number] [place] [address]- 3837 11 Jun, 2011 [facility] [place] [facility] [address] [id number] [place] [address]- 0190 Jun, [facility] [place] [facility] [address] [id number] [place] [address]- 3455 10 Jun, 2011 [facility] [place] [facility] [address] [id number] [place] [address]- 8604 Jun, [facility] [place] [facility] [address] [id number] [place] [address]- 4023 Jun, [facility] [place] [facility] [address] [id number] [place] [address]- 8601 Jun, [facility] [place] [facility] [address] [id number] [place] [address]- 9975 Jun, [facility] [place] [facility] [address] [id number] [place] [address]- 7720 Jun, [facility] [place] [facility] [address] [id number] [place] [address]- 1350 Jun, [facility] [place] [facility] [address] [id number] [place] [address]- 0849 May, [facility] [place] [facility] [address] [id number] [place] [address]- 9832 16 May, 2011 [facility] [place] [facility] [address] [id number] [place] [address]- 5562 14 May, 2011 [facility] [place] [facility] [address] [id number] [place] [address]- 0821 06 May, 2011 [facility] [place] [facility] [address] [id number] [place] [address]- 7524 Apr, [facility] [place] [facility] [address] [id number] [place] [address]- 9549 Apr, [facility] [place] [facility] [address] [id number] [place] [address]- 6644 Apr, [facility] [place] [facility] [address] [id number] [place] [address]- 4449 Apr, [facility] [address] [id number] [place] [address]- 8316 Apr, [facility] [place] [facility] [address] [id number] [place] [address]- 1916 Apr, [facility] [address] [id number] [place] [address]- 8636 Apr, [facility] [place] [facility] [address] [id number] [place] [address]- 1784 Apr, [facility] [address] [id number] [place] [address]- 4846 Mar, [facility] [address] [id number] [place] [address]- 8665 Mar, [facility] [address] [id number] [place] [address]- 0881 Mar, [facility] [address] [id number] [place] [address]- 9647 Mar, [facility] [address] [id number] [place] [address]- 5788 Mar, [facility] [address] [id number] [place] [address]- 7468 Mar, [facility] [address] [id number] [place] [address]- 6951 Mar, [facility] [address] [id number] [place] [address]- 4850 Mar, [facility] [place] [facility] [address] [id number] [place] [address]- 1946 Mar, [facility] [place] [facility] [address] [id number] [place] [address]- 7456 Mar, [facility] [place] [facility] [address] [id number] [place] [address]- 6643 Mar, [facility] [place] [facility] [address] [id number] [place] [address]- 6969 Mar, [facility] [place] [facility] [address] [id number] [place] [address]- 9496 Mar, [facility] [place] [facility] [address] [id number] [place] [address]- 5344 Mar, [facility] [place] [facility] [address] [id number] [place] [address]- 0238 Mar, [facility] [place] [facility] [address] [id number] [place] [address]- 8425 Mar, [facility] [place] [facility] [address] [id number] [place] [address]- 5419 Feb, [facility] [place] [facility] [address] [id number] [place] [address]- 4417 Feb, [facility] [place] [facility] [address] [id number] [place] [address]- 1937 Feb, [facility] [place] [facility] [address] [id number] [place] [address]- 5142 Jan, [facility] [place] [facility] [address] [id number] [place] [address]- 3342 Jan, [facility] [place] [facility] [address] [id number], [place] [address]- 6742 Jan, [facility] [place] [facility] [address] [id number], [place] [address]- 9377 Dec, [facility] [place] [facility] [address] [id number] [place] [address]- 1412 Dec, [facility] [place] [facility] [address] [id number], [place] [address]- 6424 16 Nov, 2010 [facility] [place] [facility] [address] [id number] [place] [address]- 6227 Oct, [facility] [place] [facility] [address] [facility] [id number], [place] [address] 2546 Oct, [facility] [id number] [address]- 8806 Oct, [facility] [address] [id number], [place] [address] 2546 Sep, [facility] [id number], [place] [address]- 7476 Apr, [facility] [id number], [place] [address]- 1746 Feb, [place] [id number] [place] [address]- 2746 Jan, IMMUNIZATIONS No Known Immunizations SOCIAL HISTORY Never Assessed REASON FOR VISIT Hospital f/u- Via [facility] PLAN OF CARE Activity Details Follow Up 2 Months Reason:DM VITAL SIGNS Height 70 in 2017-09-16 Weight 206.3 lbs 2017-09-16 Temperature 96.7 degrees Fahrenheit 2017-09-16 Heart Rate 52 bpm 2017-09-16 Respiratory Rate 20 2017-09-16 Oximetry w/ oxygen:97 % 2017-09-16 BMI 29.60 kg/m2 2017-09-16 Blood pressure systolic 118 mmHg 2017-09-16 Blood pressure diastolic 56 mmHg 2017-09-16 MEDICATIONS Medication Instructions Dosage Frequency Start Date End Date Duration Status Ipratropium-Albuterol 0.5-2.5 (3) MG/3ML Inhalation Four times a day 3 ml as needed for Shortness of breath 6h 28 days Active Lasix 20 MG Orally Once a day 1 tablet 24h Active Spiriva HandiHaler 18 MCG Inhalation Once a day 1 capsule 24h 90 days Active Metoprolol Tartrate 25 MG Orally 2 times a day 1/2 tablet 12h Active Glimepiride 1 MG Orally Once a day on the days you are taking the prednsone 1 tablet with breakfast or the first main meal of the day Mar, 30 day(s) Active Trulicity 0.75 MG/0.5ML Subcutaneous once weekly Inject 0.5 ml Jun, 90 days Active Ventolin HFA 108 (90 Base) MCG/ACT Inhalation every 4 hours 2 puffs as needed for short of breath or wheeze 4h 90 days Active Entresto 24-26 MG Orally Twice a day 1 tablet 12h Active Oxygen 2Lt by inhalation route 24 hours Active Advair Diskus 250-50 MCG/DOSE Inhalation Twice a day 1 puff 12h Dec, 90 days Active Aspir-81 81 MG Orally Once a day 1 tablet 24h Active Risperidone 0.5 MG Orally twice a day 1 tablet 12h Sep, Active RESULTS No Results PROCEDURES No [...] 2/2 Benzos OD, pneumonia MRSA, [facility], Hypokalemia-- [facility] 12/20/2015 Hospitalization History COPD exacerbation, Asthma-[facility] 09/21/16 Hospitalization History COPD-[facility] 12/30/2016 [facility]-last around 2006 or so. Hospitalization History for COPD x2 Mar 2017 Hospitalization History Upper GI bleed at apr 2017 Hospitalization History [facility]- COPD Exacerbation, diarrhea 05/23/2017 Hospitalization History COPD exacerbation-[facility] 06/13/17 Hospitalization History [facility] 09/09/2017
--- OUTSIDE RECORDS SUMMARY | 2017-11-19 13:22 | XMS REPORT ---
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 Name Role Phone PAZ IVERSON Unavailable PROBLEMS Type Condition ICD9-CM Code ENG72-CS Code Onset Dates Condition Status SNOMED Code Problem Bipolar disorder with depression F31.30 Active 88282468 Problem Other emphysema J43.8 Active 58362503 Problem Migraine without aura and without status migrainosus, not intractable G43.009 Active 021917437 Problem Anxiety F41.9 Active 49699806 Problem COPD with exacerbation J44.1 Active 573468154 Problem Methamphetamine use disorder, moderate, 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 Active 10306418 Problem Chronic bronchitis, unspecified chronic bronchitis type J42 Active 16810591 Problem Intractable cyclical vomiting with nausea G43.A1 Active 34811696 Problem Diabetes E11.9 Active 043119351 Problem 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 Active Problem Tobacco abuse Z72.0 Active 45508393 Problem Examination of eyes and vision V72.0 Active 308481654 Problem Chronic constipation K59.09 Active 713544148 Problem Memory loss R41.3 Active 72064590 Problem Migraine G43.909 Active 96405462 Problem Bipolar disorder, unspecified F31.9 Active 70307307 Problem TMJ (sprain of temporomandibular joint) S03.4XXA Active 04533402 Problem Generalized anxiety disorder F41.1 Active 32391847 ALLERGIES No Information ENCOUNTERS Encounter Location Date Diagnosis [facility] [address] [address] Oct, [facility] [id number], [place] [address] Oct, [facility] [address], [place] [address] Oct, [facility] [address], [place] [address] Oct, [facility] [address], [place] [address] Oct, Thrush B37.0 [facility] [address], [place] [address] Sep, COPD with exacerbation J44.1 and Anxiety F41.9 [facility] [address], [place] [address] 8[address] Sep, [facility] [address] [address] Sep, [facility] [address], [place] [address] Sep, [facility] [address] [place] [address] 26971- 7979 Sep, Acute congestive heart failure, unspecified heart failure type I50.9 and Anxiety disorder, unspecified F41.9 [facility] [address], [place] [address] Sep, Heart failure, unspecified HF chronicity, unspecified heart failure type I50.9 [facility] [address], [place] [address] 84[address] Sep, [facility] [address] [address] 8[address] Aug, Chronic obstructive pulmonary disease with acute exacerbation J44.1 [facility] [address] [address] Aug, [facility] [address], [place] [address] 4[address] Aug, [facility] [address], [place] [address] 0[address] July, [facility] [address] [place] [address] 42586- 5452 July, [facility] [id number] [place] [address] 24932- 1243 July, Diabetes E11.9 and Chronic obstructive pulmonary disease with acute exacerbation J44.1 [facility] [id number] [place] [address] 89274- 1869 Jun, Chronic obstructive pulmonary disease with acute exacerbation J44.1 ; Diabetes E11.9 and Tobacco abuse Z72.0 [facility] [id number] [place] [address] 07572- 0230 Jun, [facility] [id number] [place] [address] 05296- 0797 Jun, [facility] [id number] [place] [address] 23287- 4714 May, [facility] [id number] [place] [address] 87357- 7736 May, [facility] [id number] [place] [address] 36663 -6014 17 May, 2017 [facility] [id number] [place] [address] 02643- 6532 16 May, 2017 [facility] [id number] [place] [address] 84947- 2801 15 May, 2017 [facility] [id number] [place] [address] 53730- 2522 14 May, 2017 Diarrhea, unspecified type R19.7 and Intractable cyclical vomiting with nausea G43.A1 [facility] [id number] [place] [address] 44456- 3487 12 May, 2017 [facility] [id number] [place] [address] 28612- 7610 05 May, 2017 [facility] [id number] [place] [address] 10268- 4911 Apr, COPD exacerbation J44.1 ; Esophageal candidiasis B37.81 ; Other acute gastritis with hemorrhage K29.01 and Acute posthemorrhagic anemia D62 [facility] [address] [place] [address] 82989- 4311 Apr, Viral illness B34.9 and COPD exacerbation J44.1 [facility] [address] [place] [address] 92441 -4469 Apr, Shortness of breath R06.02 and Pneumonia of both lower lobes due to infectious organism J18.9 [facility] [address] [address]87 [address] Mar, COPD with acute exacerbation J44.1 [facility] [address] [place] [address] 18005- 9385 Mar, Chronic obstructive pulmonary disease with acute exacerbation J44.1 and Diabetes E11.9 [facility] [address] [place] [address] 49653- 7419 Mar, [facility] [address] [address]- 3817 Mar, [facility] [address] [place] [address] 30470 -9141 Mar, COPD exacerbation J44.1 [facility] [address] [place] [address] 12959- 3137 Mar, [facility] [address] [place] [address] 38478- 7229 Mar, Migraine G43.909 ; Hypokalemia E87.6 and Type 2 diabetes mellitus without complications E11.9 [facility] [address] [place] [address] 17705- 4117 Feb, [facility] [address] [place] [address] 59354- 8295 Feb, [facility] [id number] [place] [address] 07049- 6376 Feb, Methamphetamine use disorder, moderate, 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 ; Major depressive disorder, recurrent, moderate F33.1 ; Anxiety disorder, unspecified F41.9 and Tobacco abuse Z72.0 [place] [address] [place] [address] 60871- 6348 30 Jan, 2017 Major depressive disorder, recurrent, moderate F33.1 [facility] [address] [place] [address] 68753- 6792 Jan, [facility] [address] [place] [address] 73258- 1988 Jan, [facility] [address] [place] [address] 64422- 7330 Jan, Major depressive disorder, recurrent, moderate F33.1 [facility] [address] [place] [address] 61886- 4731 Jan, Major depressive disorder, recurrent, moderate F33.1 ; Anxiety disorder, unspecified F41.9 ; Methamphetamine use disorder, moderate, 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 and Tobacco abuse Z72.0 [facility] [address] [place] [address] 22509- 9329 Jan, [id number] [place] [address] 08496- 3405 Jan, Chronic obstructive pulmonary disease with acute exacerbation J44.1 and Diabetes E11.9 [facility] [facility] [address] [place] [address] 28468- 3472 Jan, [facility] [id number] [place] [address] 95985- 1654 Jan, [facility] [address] [place] [address] 17246- 9981 Dec, Acute respiratory failure with hypoxia J96.01 ; Chronic bronchitis, unspecified chronic bronchitis type J42 and Tobacco use Z72.0 [id number] [address] 2908 Dec, [facility] [address] [id number] Nov, Dental caries K02.9 and Dental examination Z01.20 [facility] [address] [place] [address] 10325- 7368 Nov, Major depressive disorder, recurrent, moderate F33.1 ; Anxiety disorder, unspecified F41.9 and 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 [facility] [address] [place] [address] [id number] Oct, Dental examination Z01.20 [facility] [address] [place] [address] 40104- 9786 Oct, [facility] [address] [place] [address] 53510- 6069 Oct, Diabetes E11.9 and Thrush B37.0 [facility] [address] [place] [address] 33984- 8631 Oct, [facility] [address] [place] [address] 96242- 9452 Oct, [facility] [address] [place] [address] 40321- 6294 Oct, [facility] [address] [place] [address] 21004- 9823 Sep, Major depressive disorder, recurrent, moderate F33.1 ; Anxiety disorder, unspecified F41.9 and Bipolar disorder, unspecified F31.9 [facility] [address] [place] [address] 03407- 7643 Sep, Acute exacerbation of chronic obstructive pulmonary disease (COPD) J44.1 and Migraine G43.909 [facility] [address] [place] [address] 44299- 9074 Sep, [facility] [id number] [id number] Sep, [facility] [address] [place] [address] 57970- 8860 Sep, Acute exacerbation of chronic obstructive pulmonary disease (COPD) J44.1 [facility] [address], [place] [address] Sep, Acute exacerbation of chronic obstructive pulmonary disease (COPD) J44.1 [facility] [id number] [place] [address] 51817- 7943 Aug, [facility] [address] [place] [address] 54190- 2284 Aug, Major depressive disorder, recurrent, moderate F33.1 ; Anxiety disorder, unspecified F41.9 and 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 [facility] [address] [place] [address] 87562- 0638 Aug, Wheezing R06.2 ; Non morbid obesity due to excess calories E66.09 ; Migraine without aura and without status migrainosus, not intractable G43.009 and Tobacco abuse Z72.0 [facility] [address] [place] [address] [id number] 14 Aug, 2016 Encounter for dental examination Z01.20 [facility] [id number], [place] [address]- 3192 02 Aug, 2016 Major depressive disorder, recurrent, moderate F33.1 ; Anxiety disorder, unspecified F41.9 and 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 [facility] [address], [place] [address]- 6790 July, [facility] [id number] [place] [address] 47474- 7528 July, [facility] [address], [place] [address]- 9462 July, [facility] [address] [place] [address] 58175- 0736 July, Diabetes E11.9 [facility] [address] [place] [address] 16867- 4192 Jun, Major depressive disorder, recurrent, moderate F33.1 [facility] [address] [place] [address] 89119- 8016 Jun, Major depressive disorder, recurrent, moderate F33.1 ; Other stimulant dependence with unspecified stimulant-induced disorder F15.29 ; Generalized anxiety disorder F41.1 and Bipolar disorder, unspecified F31.9 [facility] [address] [place] [address] 46785- 7604 Jun, Diabetes E11.9 ; Migraine G43.909 ; Thrush B37.0 and Wheezing R06.2 [facility] [address] [id number] Jun, Dental examination Z01.20 [facility] [address] [place] [address] 15067- 2083 Jun, [facility] [address] [place] [address] 04801- 1131 Jun, Major depressive disorder, recurrent, moderate F33.1 ; Anxiety disorder, unspecified F41.9 and Other stimulant dependence with unspecified stimulant-induced disorder F15.29 [facility] [address] [place] [address] 65075- 5013 Jun, [facility] [address] [place] [address] 22356- 2171 Jun, Wheezing R06.2 [facility] [address] [id number] Jun, Dental caries K02.9 [facility] [address] [place] [address] 86506- 4501 Jun, Major depressive disorder, recurrent, moderate F33.1 ; Anxiety disorder, unspecified F41.9 and Other stimulant dependence with unspecified stimulant-induced disorder F15.29 [facility] [address] [place] [address] 25483- 0278 Jun, RLQ abdominal pain R10.31 ; Diabetes E11.9 ; Obesity, unspecified obesity severity, unspecified obesity type E66.9 ; Wheezing R06.2 and Abnormal urinalysis R82.90 [place] [facility] [address] [place] [address] 35585- 9296 May, [facility] [facility] [address] [place] [address] 90890- 1327 May, Well woman exam Z01.419 ; Breast cancer screening Z12.39 ; Cervical cancer screening Z12.4 ; Urinary frequency R35.0 ; Edema, unspecified type R60.9 and Chronic constipation K59.09 [facility] [address] [place] [address] 84688- 1900 May, Major depressive disorder, recurrent, moderate F33.1 ; Anxiety disorder, unspecified F41.9 and Other stimulant dependence with unspecified stimulant-induced disorder F15.29 [facility] [id number] [place] [address] [id number] May, Dental examination Z01.20 [facility] [facility] [address] [place] [address] 55788- 0361 May, [facility] [facility] [address] [place] [address] 71059- 4540 May, [facility] [address] [place] [address] 68585- 2965 May, Chronic constipation K59.09 [place] [facility] [address] [place] [address] 57070- 0324 Apr, [facility] [address] [place] [address] 14538- 2609 Apr, Major depressive disorder, recurrent, moderate F33.1 ; Anxiety disorder, unspecified F41.9 and Other 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 [address] [place] [address], [place] [address] Apr, [facility] [facility] [address] [place] [address] 55781- 0125 Mar, Major depressive disorder, recurrent, moderate F33.1 [facility] [facility] [address] [place] [address] 59004- 8184 Mar, Major depressive disorder, recurrent, moderate F33.1 ; Generalized anxiety disorder F41.1 and Bipolar I disorder, most recent episode depressed with anxious distress F31.30 [place] [facility] [address] [place] [address] 45711- 8055 Mar, Diabetes E11.9 ; Non morbid obesity due to excess calories E66.09 ; Breast cancer screening Z12.39 and Encounter for immunization Z23 [place] [address] [place] [address] 00554- 1877 Mar, Major depressive disorder, recurrent, moderate F33.1 ; Anxiety disorder, unspecified F41.9 and Other 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 [place] [address] [place] [address] 76301- 8842 Mar, [place] [address] [place] [address] 00044- 1700 Feb, Major depressive disorder, recurrent, moderate F33.1 ; Anxiety disorder, unspecified F41.9 and 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 [place] [address], [place] [address]- 6587 Feb, [place] [facility] [address] [place] [address] 16133- 6298 Feb, [place] [address] [place] [address] 05580- 2821 Jan, Major depressive disorder, recurrent, moderate F33.1 ; Generalized anxiety disorder F41.1 and Bipolar disorder, current episode depressed, severe, without psychotic features F31.4 [facility] [address], [place] [address]- 4934 Jan, Major depressive disorder, recurrent, moderate F33.1 ; Anxiety disorder, unspecified F41.9 and Other stimulant dependence with unspecified stimulant-induced disorder F15.29 [facility] [address], [place] [address]- 4038 Jan, Bronchitis J40 [facility] [address] [place] [address] 11563- 9961 Jan, [facility] [address] [place] [address] 06978- 2629 Jan, [facility] [facility] [address] [place] [address] 99853- 8122 Jan, Elbow injury, right, initial encounter S59.901A ; Multiple contusions T14.8 and Cervical strain, acute, initial encounter S16.1XXA [place] [address] [place] [address] 32023- 2331 Dec, Major depressive disorder, recurrent, moderate F33.1 ; Generalized anxiety disorder F41.1 and Bipolar disorder with depression F31.30 [place] [address] [place] [address] 55019- 4940 Dec, [facility] [address], [place] [address]- 3981 Dec, [facility] [address], [place] [address]- 4781 Dec, [facility] [address] [place] [address] 69590- 3174 Dec, [facility] [address] [place] [address] 84290- 0664 Dec, Yeast infection B37.9 [facility] [address], [place] [address]- 3113 Dec, Pneumonia of both lungs due to methicillin resistant Staphylococcus aureus (MRSA), unspecified part of lung J15.212 and Benzodiazepine overdose, accidental or unintentional, subsequent encounter T42.4X1D [place] [address] [place] [address] 46119- 5776 Dec, [place] [address] [place] [address] 93560- 7030 Dec, [place] [facility] [address] [place] [address] 61979- 7043 Dec, Knee pain, left M25.562 and Edema, unspecified type R60.9 [place] [facility] [address] [place] [address] 39098- 2764 Dec, [place] [address] [place] [address] 24140- 4873 Dec, Anxiety disorder, unspecified F41.9 and Bipolar disorder, unspecified F31.9 [place] [address] [place] [address] 93527- 1176 Nov, Major depressive disorder, recurrent, moderate F33.1 ; Anxiety disorder, unspecified F41.9 and Other stimulant dependence with unspecified stimulant-induced disorder 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 [place] [address] [place] [address] 85403- 2387 Nov, [place] [address] [place] [address] 34800- 3838 Nov, Migraine without aura and without status migrainosus, not intractable G43.009 [place] [address] [place] [address] 75498- 5190 Nov, Migraine G43.909 [place] [address] [place] [address] 46955- 1369 Nov, [place] [facility] [address] [place] [address] 63413- 9607 Nov, Major depressive disorder, recurrent, moderate F33.1 ; Anxiety disorder, unspecified F41.9 and Other stimulant dependence with unspecified stimulant-induced disorder F15.29 [facility] [address] [place] [address] 63257- 5570 Oct, Chronic constipation K59.09 and Obesity, unspecified obesity severity, unspecified obesity type E66.9 [facility] [address] [place] [address] 89096- 4486 Oct, Obesity, unspecified obesity severity, unspecified obesity type E66.9 ; Chronic constipation K59.09 and Anxiety disorder, unspecified F41.9 [facility] [address] [place] [address] 66207- 2298 Oct, [facility] [address] [place] [address] 66679- 5551 Sep, Diabetes E11.9 ; Edema, unspecified type R60.9 ; Varicose vein of leg I83.90 and Obesity, unspecified obesity severity, unspecified obesity type E66.9 [place] [facility] [address] [place] [address] 16572- 2933 Sep, Edema, unspecified type R60.9 ; Diabetes E11.9 and Knee pain , left M25.562 [place] [facility] [address] [place] [address] 32985- 6129 Sep, [place] [facility] [address] [place] [address] 67623- 5531 Sep, [place] [facility] [address] [place] [address] 20908- 1598 Sep, Major depressive disorder, recurrent, moderate F33.1 ; Generalized anxiety disorder F41.1 and Bipolar disorder, unspecified F31.9 [facility] [facility] [address] [place] [address] 67784- 8266 Aug, Chondromalacia of left knee M94.262 [facility] [address] [place] [address] 02391- 3772 Aug, Major depressive disorder, recurrent, moderate F33.1 ; Anxiety disorder, unspecified F41.9 and 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 [facility] [address] [place] [address] 19625- 7771 Aug, [facility] [address] [place] [address] 03132- 2570 06 Aug, 2015 Osteoarthritis of left knee M17.9 [facility] [id number] [place] [address] [phone] Aug, [facility] [id number] [place] [address] [phone] July, Major depressive disorder, recurrent, moderate F33.1 ; Anxiety disorder, unspecified F41.9 and 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 [facility] [id number] [place] [address] [phone]- [phone] July, [facility] [id number] [place] [address] [phone]- [phone] July, Chronic constipation K59.09 [facility] [id number] [place] [address] [phone]- [phone] Jun, [facility] [id number] [place] [address] 35084- 7503 15 Jun, 2015 [facility] [id number] [place] [address] [phone]- [phone] 14 Jun, 2015 Osteoarthritis of left knee M17.9 [facility] [id number] [place] [address] [phone]- [phone] Jun, [facility] [id number] [place] [address] [phone]- [phone] Jun, Generalized anxiety disorder F41.1 ; Bipolar disorder, unspecified F31.9 and Major depressive disorder, recurrent, moderate F33.1 [facility] [id number] [place] [address] 13540- 8395 Jun, Migraine G43.909 [place] [id number] [place] [address] 43502- 6131 Jun, Left knee pain M25.562 ; Chronic constipation K59.09 ; Dry mouth R68.2 ; Yeast vaginitis B37.3 and Memory loss R41.3 [place] [id number] [place] [address] 75075- 5678 Jun, [place] [address] 94406- 8058 May, [place] [address] 09002- 9847 May, [place] [address] 48980- 8210 May, [address] [address]- 1940 May, [place] [address] 15586- 7143 May, Acute bronchitis with COPD J44.0 ; Knee pain, left M25.562 and Encounter for tobacco use cessation counseling Z71.[address] 5[address]- 4064 May, [address] 59149- 0979 Apr, Diabetes E11.9 ; TMJ (sprain of temporomandibular joint) S03.4XXA ; Tobacco abuse Z72.0 ; Migraine G43.909 and Anxiety F41.[address] 98006- 0975 Apr, Generalized anxiety disorder F41.1 and Bipolar disorder, unspecified F31.[address] 40072- 9590 Apr, Major depressive disorder, recurrent, moderate F33.1 ; Anxiety disorder, unspecified F41.9 and 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 [facility] [id number] [place] [address]- 1546 04 Apr, 2015 [facility] [id number] [place] [address] 24910- 5096 Mar, [facility] [id number] [place] [address] 58717- 1475 Feb, [facility] [id number] [place] [address] 54218- 0810 14 Feb, 2015 Major depressive disorder, recurrent, moderate F33.1 ; Anxiety disorder, unspecified F41.9 and 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 [facility] [id number] [place] [address] 52193- 7456 Feb, [facility] [id number] [place] [address] 69112- 0230 Feb, Generalized anxiety disorder F41.1 and Bipolar disorder, unspecified F31.9 [facility] [id number] [place] [address] 51116- 6184 Jan, [facility] [address] [place] [address] 87253- 6480 18 Jan, 2015 [facility] [address] [place] [address] 78084- 7704 Jan, Bipolar disorder, unspecified F31.9 and Generalized anxiety disorder F41.1 [facility] [address] [place] [address] 99922- 4387 Dec, [facility] [id number] [place] [address] 39624- 9481 14 Dec, 2014 Bipolar disorder, unspecified F31.9 and Generalized anxiety disorder F41.1 [facility] [id number] [place] [address] 64257- 0610 Dec, Generalized anxiety disorder F41.1 and Major depressive disorder, recurrent, moderate F33.1 [facility] [id number] [place] [address] 54631- 1763 Oct, Headache 784.0 ; Cough 786.2 ; Vomiting and diarrhea 787.03 and Dysuria 788.1 [facility] [address] 98912- 3211 Aug, [facility] [address] 055398- 2645 Aug, Headache 784.0 and Shortness of breath 786.05 [facility] [address] 65606- 7850 Aug, [facility] [address] 41178- 1957 Aug, Migraine 346.90 [facility] [address] 75655- 5571 Jun, [facility] [id number] [place] [address] 30932- 1259 Jun, [facility] [address] 09260- 7795 May, [facility] [id number] [place] [address] 28050- 5686 May, [facility] [id number] [place] [address] 95538- 3039 May, [facility] [id number] [place] [address] 48865- 1878 May, [facility] [address] 31378- 5735 May, [facility] [id number] [place] [address] 55022- 8034 May, [facility] [address] 63344- 3762 Apr, 2014 [facility] [address] [id number] [place] [address]- 2227 Apr, 2014 [facility] [place] [facility] [address] [id number] [place] [address]- 5817 Apr, 2014 [facility] [place] [facility] [address] [id number] [place] [address]- 2137 Apr, 2014 [facility] [place] [facility] [address] [id number] [place] [address]- 0808 Apr, [facility] [place] [facility] [address] [id number] [place] [address]- 8379 Mar, [facility] [place] [facility] [address] [id number] [place] [address]- 1668 Mar, [facility] [address] [id number] [place] [address]- 9923 Mar, [facility] [place] [facility] [address] [id number] [place] [address]- 5659 Mar, [facility] [place] [facility] [address] [id number] [place] [address]- 1466 Feb, [facility] [place] [facility] [address] [facility] [id number] [place] [address]- 9696 Feb, [facility] [place] [facility] [address] [id number] [place] [address]- 5327 18 Feb, 2014 [facility] [place] [facility] [address] [id number] [place] [address]- 5767 18 Feb, 2014 [facility] [place] [facility] [address] [id number] [place] [address]- 1978 16 Feb, 2014 [facility] [place] [facility] [address] [id number] [place] [address]- 4226 16 Feb, 2014 [facility] [place] [facility] [address] [facility] [id number] [place] [address]- 1013 11 Feb, 2014 [facility] [place] [facility] [address] [id number] [place] [address]- 2283 Feb, [facility] [place] [facility] [address] [id number] [place] [address]- 9274 Feb, [facility] [place] [facility] [address] [id number] [place] [address]- 8812 Feb, [facility] [place] [facility] [address] [id number] [place] [address]- 5343 Feb, [facility] [place] [facility] [address] [id number] [place] [address]- 3889 Feb, [facility] [place] [facility] [address] [id number] [place] [address]- 5680 Jan, [facility] [place] [facility] [address] [id number] [place] [address]- 4252 Jan, [facility] [place] [facility] [address] [id number] [place] [address]- 8237 Dec, [facility] [place] [facility] [address] [id number] [place] [address]- 2698 Dec, [facility] [place] [facility] [address] [id number] [place] [address]- 2687 Dec, [facility] [place] [facility] [address] [id number] [place] [address]- 0625 Dec, [facility] [place] [facility] [address] [id number] [place] [address]- 6437 Dec, [facility] [place] [facility] [address] [id number] [place] [address]- 6768 Dec, [facility] [place] [facility] [address] [id number] [place] [address]- 3054 Sep, [facility] [place] [facility] [address] [id number] [place] 7729 Sep, [facility] [place] [facility] [address] [id number] [place] [address]- 8048 Sep, [facility] [place] [facility] [address] [id number] [place] [address]- 1180 Sep, [facility] [place] [facility] [address] [id number] [place] [address]- 5465 Sep, [facility] [place] [facility] [address] [id number] [place] [address]- 0137 Sep, 2013 [facility] [place] [facility] [address] [id number] [place] [address]- 3518 Sep, [facility] [place] [facility] [address] [id number] [place] [address]- 5813 Sep, [facility] [place] [facility] [address] [id number] [place] [address]- 1814 Sep, [facility] [place] [facility] [address] [id number] [place] [address]- 6681 Sep, [facility] [place] [facility] [address] [id number] [place] [address]- 4712 24 Aug, 2013 [facility] [place] [facility] [address] [id number] [place] [address]- 2959 Aug, [facility] [place] [facility] [address] [id number] [place] [address]- 5989 Aug, [facility] [place] [facility] [address] [id number] [place] [address]- 0217 Aug, [facility] [place] [facility] [address] [id number] [place] [address]- 4097 17 Aug, 2013 [facility] [place] [facility] [address] [id number] [place] [address]- 7211 Aug, [facility] [place] [facility] [address] [id number] [place] [address]- 6431 14 Aug, 2013 [facility] [place] [facility] [address] [id number] [place] [address]- 5671 Aug, [facility] [place] [facility] [address] [id number] [place] [address]- 3602 Aug, [facility] [address] [id number] [place] [address]- 7310 Aug, [facility] [address] [id number] [place] [address]- 3901 Aug, [facility] [address] [id number] [place] [address]- 1734 Aug, [facility] [place] [facility] [address] [id number] [place] [address]- 3592 Aug, [facility] [address] [id number] [place] [address]- 6534 July, [facility] [address] [id number] [place] [address]- 4683 July, [facility] [address] [id number] [place] [address]- 4696 July, [facility] [address] [id number] [place] [address]- 4459 July, [facility] [address] [id number] [place] [address]- 5483 July, [facility] [address] [id number] [place] [address]- 6903 July, [facility] [address] [id number] [place] [address]- 7556 July, [facility] [place] [facility] [address] [id number] [place] [address]- 1656 Jun, [facility] [place] [facility] [address] [id number] [place] [address]- 9443 Jun, [facility] [place] [facility] [address] [id number] [place] [address]- 2821 Jun, [facility] [place] [facility] [address] [id number] [place] [address]- 1598 Jun, [facility] [place] [facility] [address] [id number] [place] [address]- 0218 16 Jun, 2013 [facility] [place] [facility] [address] [id number] [place] [address]- 8395 08 Jun, 2013 [facility] [place] [facility] [address] [id number] [place] [address]- 2755 08 Jun, 2013 [facility] [place] [facility] [address] [id number] [place] [address]- 1480 17 May, 2013 [facility] [place] [facility] [address] [id number] [place] [address]- 2088 17 May, 2013 [facility] [place] [facility] [address] [id number] [place] [address]- 1349 14 May, 2013 [facility] [place] [facility] [address] [id number] [place] [address]- 3032 14 May, 2013 [facility] [place] [facility] [address] [id number] [place] [address]- 3734 13 May, 2013 [facility] [place] [facility] [address] [id number] [place] [address]- 8725 13 May, 2013 [facility] [place] [facility] [address] [id number] [place] [address]- 1359 10 May, 2013 [facility] [place] [facility] [address] [id number] [place] [address]- 2381 10 May, 2013 [facility] [place] [facility] [address] [id number] [place] [address]- 1668 07 May, 2013 [facility] [place] [facility] [address] [id number] [place] [address]- 0389 Apr, [facility] [place] [facility] [address] [id number] [place] [address]- 3326 Apr, [facility] [place] [facility] [address] [id number] [place] [address]- 5816 18 Apr, 2013 [facility] [place] [facility] [address] [id number] [place] [address]- 3942 15 Apr, 2013 [facility] [place] [facility] [address] [id number] [place] 2366 Apr, [facility] [place] [facility] [address] [id number] [place] 3186 Apr, [facility] [place] [facility] [address] [id number] [place] [address]- 9036 Apr, [facility] [place] [facility] [address] [id number] [place] [address]- 4378 Apr, [facility] [place] [facility] [address] [id number] [place] [address]- 3873 Apr, [facility] [place] [facility] [address] [id number] [place] [address]- 9973 Apr, [facility] [place] [facility] [address] [id number] [place] [address]- 1780 Mar, [facility] [place] [facility] [address] [id number] [place] [address]- 0301 Mar, [facility] [place] [facility] [address] [facility] [id number] [place] [address]- 2921 Mar, [facility] [place] [facility] [address] [facility] [id number] [place] [address]- 3742 Mar, [facility] [place] [facility] [address] [id number] [place] [address]- 8750 Mar, [facility] [place] [facility] [address] [id number] [place] [address]- 8653 Mar, [facility] [place] [facility] [address] [id number] [place] [address]- 8570 Mar, [facility] [place] [facility] [address] [id number] [place] [address]- 4235 Mar, [facility] [place] [facility] [address] [id number] [place] [address]- 8840 Feb, [facility] [place] [facility] [address] [id number] [place] [address]- 3190 Feb, [facility] [place] [facility] [address] [id number] [place] [address]- 0874 Jan, [facility] [place] [facility] [address] [id number] [place] [address]- 0118 Jan, [facility] [place] [facility] [address] [id number] [place] [address]- 0824 Jan, [facility] [place] [facility] [address] [id number] [place] [address]- 9431 Jan, [facility] [place] [facility] [address] [id number] [place] [address]- 1188 Jan, [facility] [place] [facility] [address] [id number] [place] [address]- 9109 Jan, [facility] [place] [facility] [address] [id number], [place] [address]- 3008 Jan, [facility] [place] [facility] [address] [id number], [place] [address]- 0441 Jan, [facility] [place] [facility] [address] [facility] [id number], [place] [address]- 9843 Dec, [facility] [place] [facility] [address] [id number], [place] [address]- 5009 Dec, [facility] [place] [facility] [address] [id number], [place] [address]- 9566 10 Dec, 2012 [facility] [place] [facility] [address] [id number], [place] [address]- 7415 20 Nov, 2012 [facility] [place] [facility] [address] [id number], [place] [address]- 6611 13 Nov, 2012 [facility] [place] [facility] [address] [id number], [place] [address]- 7550 12 Nov, 2012 [facility] [place] [facility] [address] [id number], [place] [address]- 3924 Nov, [facility] [address] [id number] [place] [address]- 4017 Nov, [facility] [place] [facility] [address] [id number] [place] [address]- 5946 Nov, [facility] [place] [facility] [address] [id number] [place] [address]- 8319 Oct, [facility] [place] [facility] [address] [id number] [place] [address]- 1780 Oct, [facility] [place] [facility] [address] [id number] [place] [address]- 6711 Sep, [facility] [place] [facility] [address] [id number] [place] [address]- 1597 Sep, [facility] [address] [id number] [place] [address]- 2637 Sep, [facility] [place] [facility] [address] [id number] [place] [address]- 9786 Sep, [facility] [place] [facility] [address] [id number] [place] [address]- 4954 Sep, [facility] [place] [facility] [address] [id number] [place] [address]- 9082 Sep, [facility] [place] [facility] [address] [id number] [place] [address]- 8421 Sep, [facility] [place] [facility] [address] [id number], [place] [address]- 3377 Aug, [facility] [place] [facility] [address] [id number] [place] [address]- 6350 Aug, [facility] [place] [facility] [address] [id number] [place] [address]- 6109 Aug, [facility] [place] [facility] [address] [id number] [place] [address]- 6379 Aug, [facility] [place] [facility] [address] [id number] [place] [address]- 5477 Aug, [facility] [address] [id number] [place] [address]- 4012 Aug, [facility] [place] [facility] [address] [id number] [place] [address]- 0821 July, [facility] [address] [id number] [place] [address]- 1448 July, [facility] [address] [id number] [place] [address]- 1828 July, [facility] [address] [id number] [place] [address]- 7450 July, [facility] [address] [id number] [place] [address]- 6918 July, [facility] [address] [id number] [place] [address]- 9814 July, [facility] [address] [id number] [place] [address]- 8530 Jun, [facility] [address] [id number] [place] [address]- 4833 Jun, [facility] [address] [id number] [place] [address]- 1265 Jun, [facility] [place] [facility] [address] [id number] [place] [address]- 5241 Jun, [facility] [place] [facility] [address] [id number] [place] [address]- 8582 Jun, [facility] [place] [facility] [address] [id number] [place] [address]- 3130 Jun, [facility] [place] [facility] [address] [id number] [place] [address]- 1279 Jun, [facility] [place] [facility] [address] [id number] [place] [address]- 7432 07 May, 2012 [facility] [address] [id number] [place] [address]- 7750 May, [facility] [address] [id number] [place] [address]- 4936 26 Apr, 2012 [facility] [address] [facility] [id number] [place] [address]- 0606 Apr, [facility] [place] [facility] [address] [id number] [place] [address]- 9983 Apr, 2012 [facility] [place] [facility] [address] [id number] [place] [address]- 7246 Apr, [facility] [place] [facility] [address] [facility] [id number] [place] [address]- 2631 12 Apr, 2012 [facility] [address] [id number] [place] [address]- 6069 08 Apr, 2012 [facility] [place] [facility] [address] [facility] [id number] [place] [address]- 2544 07 Apr, 2012 [facility] [place] [facility] [address] [facility] [id number] [place] [address] 07 Apr, 2012 [facility] [place] [facility] [address] [facility] [id number] [place] [address] 06 Apr, 2012 [facility] [place] [facility] [address] [facility] [id number] [place] [address] Apr, [facility] [place] [facility] [address] [facility] [id number] [place] [address] 25[address] Apr, [facility] [place] [facility] [address] [facility] [id number] [place] [address] Mar, [facility] [place] [facility] [address] [facility] [id number] [place] [address] Mar, [facility] [place] [facility] [address] [facility] [id number], [place] [address] Mar, [facility] [place] [facility] [address] [id number] [place] [address] Mar, [facility] [address] [id number] [place] [address] Mar, [facility] [address] [id number] [place] [address]697 Mar, [facility] [address] [id number] [place] [address] Mar, [facility] [address] [id number] [place] [address] Mar, [facility] [address] [id number] [place] [address] 79[address] Mar, [facility] [address] [id number] [place] [address] Mar, [facility] [address] [id number] [place] [address] Mar, [facility] [address] [id number] [place] [address] Mar, [facility] [address] [id number] [place] [address] Mar, [facility] [address] [id number] [place] [address] Feb, [facility] [address] [id number] [place] [address] Feb, [facility] [address] [id number] [place] [address] Feb, [facility] [place] [facility] [address] [id number] [place] [address] Feb, [facility] [address] [id number] [place] [address] Feb, [facility] [address] [id number], [place] [address] Feb, [facility] [place] [facility] [address] [id number] [place] [address] Feb, [facility] [place] [facility] [address] [id number] [place] [address] Feb, [facility] [place] [facility] [address] [facility] [id number] [place] [address]- [address] Feb, [facility] [place] [facility] [address] [id number] [place] [address]- 95[address] Feb, [facility] [place] [facility] [address] [id number] [place] [address]- 4079 Feb, [facility] [place] [facility] [address] [id number] [place] [address]- [address]87 Feb, [facility] [place] [facility] [address] [id number] [place] [address] Feb, [facility] [place] [facility] [address] [id number] [place] [address] Feb, [facility] [place] [facility] [address] [id number] [place] [address] Feb, [facility] [place] [facility] [address] [id number] [place] [address] Jan, [facility] [place] [facility] [address] [id number], [place] [address] Jan, [facility] [place] [facility] [address] [id number], [place] [address] Jan, [facility] [place] [facility] [address] [id number] [place] [address] 69[address] Jan, [facility] [place] [facility] [address] [facility] [id number], [place] [address] Dec, [facility] [place] [facility] [address] [facility] [id number] [place] [address]- [address] Dec, [facility] [place] [facility] [address] [id number] [place] [address] Dec, 2011 [facility] [address] [id number] [place] [address]- [address] Dec, 2011 [facility] [place] [facility] [address] [id number] [place] [address] Dec, [facility] [address] [id number] [place] [address]- [address]283 Dec, [facility] [place] [facility] [address] [id number] [place] [address] 76[address] Dec, 2011 [facility] [address] [id number] [place] [address]- 47[address] 16 Dec, 2011 [facility] [address] [id number] [place] [address] 47[address] 07 Dec, 2011 [facility] [place] [facility] [address] [id number] [place] [address]- 9429 04 Dec, 2011 [facility] [address] [id number] [place] [address]- [address] 03 Dec, 2011 [facility] [place] [facility] [address] [id number] [place] [address]- [address] 25 Sep, 2011 [facility] [address] [id number] [place] [address] 24 Sep, 2011 [facility] [place] [facility] [address] [id number] [place] [address] 2546 20 Sep, 2011 [facility] [place] [facility] [address] [id number] [place] [address]- [address] 19 Sep, 2011 [facility] [place] [facility] [address] [id number] [place] [address]- 7[address] 17 Sep, 2011 [facility] [place] [facility] [address] [id number] [place] [address]- 2546 16 Sep, 2011 [facility] [place] [facility] [address] [id number] [place] [address]- [address] 14 Sep, 2011 [facility] [place] [facility] [address] [id number] [place] [address]- 2316 13 Nov, 2011 [facility] [place] [facility] [address] [id number] [place] [address]- [address]66 12 Nov, 2011 [facility] [place] [facility] [address] [id number] [place] [address]- [address] 07 Nov, 2011 [facility] [place] [facility] [address] [id number] [place] [address] 06 Nov, 2011 [facility] [place] [facility] [address] [id number] [place] [address] 06 Nov, 2011 [facility] [place] [facility] [address] [id number] [place] [address] 05 Nov, 2011 [facility] [place] [facility] [address] [id number] [place] [address] 29 Oct, 2011 [facility] [place] [facility] [address] [id number] [place] [address]84 29 Oct, 2011 [facility] [place] [facility] [address] [id number] [place] [address] Oct, [facility] [place] [facility] [address] [id number] [place] [address] Oct, [facility] [place] [facility] [address] [id number] [place] [address] Oct, [facility] [place] [facility] [address] [id number] [place] [address] Oct, [facility] [place] [facility] [address] [id number] [place] [address] Oct, [facility] [place] [facility] [address] [id number] [place] [address] 16 Oct, 2011 [facility] [place] [facility] [address] [id number] [place] [address] 15 Oct, 2011 [facility] [place] [facility] [address] [id number] [place] [address] Oct, [facility] [place] [facility] [address] [id number] [place] [address] 68[address] Oct, [facility] [place] [facility] [address] [id number] [place] [address] 8469 Sep, [facility] [place] [facility] [address] [id number] [place] [address] Sep, [facility] [place] [facility] [address] [id number] [place] [address] Sep, [facility] [place] [facility] [address] [id number] [place] [address] 65[address] Sep, [facility] [place] [facility] [address] [id number] [place] [address]708 Sep, [facility] [place] [facility] [address] [id number] [place] [address] Sep, [facility] [place] [facility] [address] [id number] [place] [address] Aug, [facility] [place] [facility] [address] [id number] [place] [address]69 July, [facility] [place] [facility] [address] [id number] [place] [address]262 July, [facility] [place] [facility] [address] [id number] [place] [address] 5[address] Jun, [facility] [place] [facility] [address] [id number] [place] [address] Jun, [facility] [place] [facility] [address] [id number] [place] [address] 58[address] Jun, [facility] [place] [facility] [address] [id number] [place] [address] Jun, [facility] [place] [facility] [address] [id number] [place] [address] 46[address] Jun, [facility] [place] [facility] [address] [id number] [place] [address]65 10 Jun, 2011 [facility] [place] [facility] [address] [id number] [place] [address] 09 Jun, 2011 [facility] [place] [facility] [address] [id number] [place] [address] 4[address] 08 Jun, 2011 [facility] [place] [facility] [address] [id number] [place] [address] 9330 03 Jun, 2011 [facility] [place] [facility] [address] [id number] [place] [address] 6[address] Jun, [facility] [place] [facility] [address] [id number] [place] [address] 1784 Jun, [facility] [place] [facility] [address] [facility] [id number] [place] [address] 19 May, 2011 [facility] [place] [facility] [address] [id number] [place] [address] 7729 16 May, 2011 [facility] [place] [facility] [address] [id number] [place] [address] 2657 14 May, 2011 [facility] [place] [facility] [address] [id number] [place] [address] 06 May, 2011 [facility] [place] [facility] [address] [facility] [id number] [place] [address]24 Apr, [facility] [place] [facility] [address] [id number] [place] [address] 74[address] 28 Apr, 2011 [facility] [place] [facility] [address] [id number] [place] [address] 4874 27 Apr, 2011 [facility] [place] [facility] [address] [id number] [place] [address] Apr, [facility] [place] [facility] [address] [id number] [place] [address] 244[address] Apr, [facility] [place] [facility] [address] [id number] [place] [address] 4142 Apr, [facility] [address] [id number] [place] [address] 5944 Apr, [facility] [place] [facility] [address] [id number] [place] [address] 3087 Apr, [facility] [address] [id number] [place] [address] 9156 Mar, [facility] [address] [id number] [place] [address] 9580 Mar, [facility] [address] [id number] [place] [address] 9915 Mar, [facility] [address] [id number] [place] [address] 6[address] Mar, [facility] [address] [id number] [place] [address] 6108 Mar, [facility] [address] [id number] [place] [address] 6517 Mar, [facility] [address] [id number] [place] [address] 9160 Mar, [facility] [place] [facility] [address] [id number] [place] [address] Mar, [facility] [address] [id number] [place] [address] Mar, [facility] [place] [facility] [address] [id number] [place] [address] 7068 Mar, [facility] [place] [facility] [address] [id number] [place] [address] 6821 Mar, [facility] [place] [facility] [address] [id number] [place] [address] 6578 Mar, [facility] [place] [facility] [address] [id number] [place] [address] 8382 Mar, [facility] [place] [facility] [address] [id number] [place] [address] 3715 Mar, [facility] [place] [facility] [address] [id number] [place] [address] 1438 Mar, [facility] [place] [facility] [address] [id number] [place] [address] 5256 Mar, [facility] [place] [facility] [address] [id number] [place] [address] 8361 Feb, [facility] [place] [facility] [address] [id number] [place] [address] 9481 Feb, [facility] [place] [facility] [address] [id number] [place] [address] 1935 Feb, [facility] [place] [facility] [address] [id number] [place] [address]100 Jan, [facility] [place] [facility] [address] [id number] [place] [address] 4913 Jan, [facility] [place] [facility] [address] [id number] [place] [address]- 8734 Jan, [facility] [place] [facility] [address] [id number] [place] [address]- 4249 Dec, [facility] [place] [facility] [address] [id number] [place] [address] 4403 Dec, [facility] [place] [facility] [address] [id number] [place] [address] 3940 Nov, [facility] [place] [facility] [address] [id number] [place] [address]- 7873 Oct, [facility] [place] [facility] [address] [id number] [place] [address]- 1081 Oct, [facility] [place] [facility] [address] [id number] [place] [address] 8428 Oct, [facility] [place] [facility] [address] [id number] [place] [address]- 3424 Sep, [facility] [address] [facility] [id number] [place] [address] 2546 Apr, [facility] [address] [facility] [id number], [place] [address] Feb, [facility] [address] [facility] [id number] [place] [address]- [address]46 Jan, IMMUNIZATIONS No Known Immunizations SOCIAL HISTORY Never Assessed REASON FOR VISIT wants cheaper med PLAN OF CARE VITAL SIGNS MEDICATIONS Medication Instructions Dosage Frequency Start Date End Date Duration Status Valsartan 40 mg Orally Twice a day 1 tablet 12h Sep, 07 days Active RESULTS No Results PROCEDURES No [...] 2/2 Benzos OD, pneumonia MRSA, [facility], Hypokalemia-- [facility] 12/20/2015 Hospitalization History COPD exacerbation, Asthma-[facility] 09/21/16 Hospitalization History COPD-[facility] 12/30/2016 Hospitalization History [facility] and [facility] for inpatient-last around 2006 or so. Hospitalization History for COPD x2 Mar 2017 Hospitalization History Upper GI bleed at apr 2017 Hospitalization History [facility]- COPD Exacerbation, diarrhea 05/23/2017 Hospitalization History COPD exacerbation-[facility] 06/13/17 Hospitalization History CHF 09/09/2017
--- OUTSIDE RECORDS SUMMARY | 2017-11-19 13:23 | XMS REPORT ---
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 Name Role Phone ALIZA CARTER Unavailable PROBLEMS Type Condition ICD9-CM Code CWR39-ON Code Onset Dates Condition Status SNOMED Code Problem Bipolar disorder with depression F31.30 Active 26770098 Problem Other emphysema J43.8 Active 41125401 Problem Migraine without aura and without status migrainosus, not intractable G43.009 Active 770038414 Problem Anxiety F41.9 Active 05587240 Problem COPD with exacerbation J44.1 Active 658998470 Problem Methamphetamine use disorder, moderate, 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 Active 80078029 Problem Chronic bronchitis, unspecified chronic bronchitis type J42 Active 20686280 Problem Intractable cyclical vomiting with nausea G43.A1 Active 50230477 Problem Diabetes E11.9 Active 958130202 Problem 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 Active Problem Tobacco abuse Z72.0 Active 36275136 Problem Examination of eyes and vision V72.0 Active 516449449 Problem Chronic constipation K59.09 Active 972270981 Problem Memory loss R41.3 Active 67144398 Problem Migraine G43.909 Active 64465669 Problem Bipolar disorder, unspecified F31.9 Active 07230190 Problem TMJ (sprain of temporomandibular joint) S03.4XXA Active 74212410 Problem Generalized anxiety disorder F41.1 Active 86855145 ALLERGIES No Information ENCOUNTERS Encounter Location Date Diagnosis [facility] [address] [address] Oct, [facility] [address] [address] 2436 Oct, [facility] [address] [address] 1015 Oct, [facility] [address] [address] 8[address] Oct, [facility] [id number] [place] [address] 67800- 4945 Oct, Thrush B37.0 [facility] [address], [place] [address] Sep, COPD with exacerbation J44.1 and Anxiety F41.9 [facility] [id number] [address] 1196 Sep, [facility] [id number] [place] [address] 52401- 2233 Sep, [facility] [id number] [place] [address] 24562- 7366 Sep, [facility] [id number] [place] [address] 52050- 6584 Sep, Acute congestive heart failure, unspecified heart failure type I50.9 and Anxiety disorder, unspecified F41.9 [facility] [id number] [place] [address] 57789- 6722 Sep, Heart failure, unspecified HF chronicity, unspecified heart failure type I50.9 [facility] [address], [place] [address] 8365 Sep, [facility] [address], [place] [address] 3641 Aug, Chronic obstructive pulmonary disease with acute exacerbation J44.1 [facility] [address], [place] [address] 3622 Aug, [facility] [address], [place] [address] 0028 Aug, [facility] [address], [place] [address] 5[address] July, [facility] [address], [place] [address] 6032 July, [facility] [id number] [place] [address] 37530- 5728 July, Diabetes E11.9 and Chronic obstructive pulmonary disease with acute exacerbation J44.1 [facility] [id number] [place] [address] 77649- 8158 Jun, Chronic obstructive pulmonary disease with acute exacerbation J44.1 ; Diabetes E11.9 and Tobacco abuse Z72.0 [facility] [id number] [place] [address] 06477- 7092 Jun, [facility] [id number] [place] [address] 63587- 6789 Jun, [facility] [id number] [place] [address] 69380- 9245 May, [facility] [id number] [place] [address] 60750- 4174 May, [facility] [id number] [place] [address] 33992 -9947 17 May, 2017 [facility] [id number] [place] [address] 72774- 3718 16 May, 2017 [facility] [id number] [place] [address] 31000- 7968 15 May, 2017 [facility] [id number] [place] [address] 58132- 2429 14 May, 2017 Diarrhea, unspecified type R19.7 and Intractable cyclical vomiting with nausea G43.A1 [facility] [id number] [place] [address] 08794- 1873 May, [facility] [id number] [place] [address] 94680- 7730 05 May, 2017 [facility] [id number] [place] [address] 52458- 6419 Apr, COPD exacerbation J44.1 ; Esophageal candidiasis B37.81 ; Other acute gastritis with hemorrhage K29.01 and Acute posthemorrhagic anemia D62 [facility] [id number] [place] [address] 37201- 3234 Apr, Viral illness B34.9 and COPD exacerbation J44.1 [facility] [address] 08806 -9746 Apr, Shortness of breath R06.02 and Pneumonia of both lower lobes due to infectious organism J18.9 [facility] [address] 8[address] -5719 Mar, COPD with acute exacerbation J44.1 [place] [address] 63155- 4256 Mar, Chronic obstructive pulmonary disease with acute exacerbation J44.1 and Diabetes E11.9 [place] [address] 92398- 7819 Mar, [facility] [address] 39959- 8311 Mar, [facility] [address] 15172 -7203 Mar, COPD exacerbation J44.1 [place] [address] 10853- 7874 Mar, [place] [address] 22840- 0055 Mar, Migraine G43.909 ; Hypokalemia E87.6 and Type 2 diabetes mellitus without complications E11.9 [place] [address] 85279- 4103 Feb, [place] [address] 89695- 7081 Feb, [place] [address] [place] [address]- 2458 Feb, Methamphetamine use disorder, moderate, 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 ; Major depressive disorder, recurrent, moderate F33.1 ; Anxiety disorder, unspecified F41.9 and Tobacco abuse Z72.0 [place] [id number] [place] [address] 40511- 6879 30 Jan, 2017 Major depressive disorder, recurrent, moderate F33.1 [place] [address] 06810- 3494 Jan, [place] [address] 80449- 7113 Jan, [place] [address] 19363- 9635 Jan, Major depressive disorder, recurrent, moderate F33.1 [place] [address] 19108- 4997 Jan, Major depressive disorder, recurrent, moderate F33.1 ; Anxiety disorder, unspecified F41.9 ; Methamphetamine use disorder, moderate, 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 and Tobacco abuse Z72.0 [place] [address] 35237- 2751 Jan, [place] [id number] [place] [address] 55630- 5764 Jan, Chronic obstructive pulmonary disease with acute exacerbation J44.1 and Diabetes E11.9 [place] [id number] [place] [address] 98273- 6270 Jan, [place] [id number] [place] [address] 94071- 4354 Jan, [place] [id number] [place] [address] 71336- 1903 Dec, Acute respiratory failure with hypoxia J96.01 ; Chronic bronchitis, unspecified chronic bronchitis type J42 and Tobacco use Z72.0 [place] [address] [place] [address]- 2349 Dec, [facility] [address] [place] [address] [id number] Nov, Dental caries K02.9 and Dental examination Z01.20 [facility] [id number] [place] [address] 36426- 8752 Nov, Major depressive disorder, recurrent, moderate F33.1 ; Anxiety disorder, unspecified F41.9 and 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 [facility] [id number] [place] [address] [id number] Oct, Dental examination Z01.20 [facility] [address] 08406- 4879 Oct, [facility] [id number] [place] [address] 13603- 2210 Oct, Diabetes E11.9 and Thrush B37.0 [facility] [id number] [place] [address] 18623- 1296 Oct, [facility] [id number] [place] [address] 51338- 2664 Oct, [facility] [id number] [place] [address] 33218- 0526 Oct, [facility] [id number] [place] [address] 19848- 1408 Sep, Major depressive disorder, recurrent, moderate F33.1 ; Anxiety disorder, unspecified F41.9 and Bipolar disorder, unspecified F31.9 [facility] [id number] [place] [address] 17636- 0935 Sep, Acute exacerbation of chronic obstructive pulmonary disease (COPD) J44.1 and Migraine G43.909 [facility] [id number] [place] [address] 98008- 6807 Sep, [facility] [id number] [place] [address] [id number] Sep, [facility] [address], [place] [address]- 6639 Sep, Acute exacerbation of chronic obstructive pulmonary disease (COPD) J44.1 [facility] [address], [place] [address] Sep, Acute exacerbation of chronic obstructive pulmonary disease (COPD) J44.1 [facility] [address], [place] [address]- 6949 Aug, [facility] [id number] [place] [address] 94189- 2483 Aug, Major depressive disorder, recurrent, moderate F33.1 ; Anxiety disorder, unspecified F41.9 and 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 [facility] [address] [place] [address] 21164- 2334 Aug, Wheezing R06.2 ; Non morbid obesity due to excess calories E66.09 ; Migraine without aura and without status migrainosus, not intractable G43.009 and Tobacco abuse Z72.0 [facility] [address] [place] [address] [id number] 14 Aug, 2016 Encounter for dental examination Z01.20 [facility] [id number] [place] [address] 10497- 5529 02 Aug, 2016 Major depressive disorder, recurrent, moderate F33.1 ; Anxiety disorder, unspecified F41.9 and 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 [facility] [address], [place] [address]- 9396 July, [facility] [id number] [place] [address] 07877- 5323 July, [facility] [address], [place] [address]- 1437 July, [facility] [id number] [place] [address] 68057- 8186 July, Diabetes E11.9 [facility] [id number] [place] [address] 294642- 4236 Jun, Major depressive disorder, recurrent, moderate F33.1 [facility] [id number] [place] [address] 37798- 9436 Jun, Major depressive disorder, recurrent, moderate F33.1 ; 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 ; Generalized anxiety disorder F41.1 and Bipolar disorder, unspecified F31.9 [facility] [address] [place] [address] 37624- 6275 Jun, Diabetes E11.9 ; Migraine G43.909 ; Thrush B37.0 and Wheezing R06.2 [facility] [id number] [place] [address] [id number] Jun, Dental examination Z01.20 [facility] [id number] [place] [address] 73322- 4182 Jun, [facility] [id number] [place] [address] 60065- 2629 Jun, Major depressive disorder, recurrent, moderate F33.1 ; Anxiety disorder, unspecified F41.9 and 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 [facility] [id number] [place] [address] 21236- 3441 Jun, [facility] [id number] [place] [address] 01908- 3909 Jun, Wheezing R06.2 [facility] [id number] [place] [address] [id number] Jun, Dental caries K02.9 [facility] [id number] [place] [address] 36516- 3117 Jun, Major depressive disorder, recurrent, moderate F33.1 ; Anxiety disorder, unspecified F41.9 and 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 [place] [id number] [place] [address] 82968- 6811 Jun, RLQ abdominal pain R10.31 ; Diabetes E11.9 ; Obesity, unspecified obesity severity, unspecified obesity type E66.9 ; Wheezing R06.2 and Abnormal urinalysis R82.90 [place] [id number] [place] [address] 50674- 8033 May, [place] [address] 186547- 2453 May, Well woman exam Z01.419 ; Breast cancer screening Z12.39 ; Cervical cancer screening Z12.4 ; Urinary frequency R35.0 ; Edema, unspecified type R60.9 and Chronic constipation K59.09 [place] [id number] [place] [address] 08138- 6310 May, Major depressive disorder, recurrent, moderate F33.1 ; Anxiety disorder, unspecified F41.9 and 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 [facility] [id number] [place] [address] [id number] May, Dental examination Z01.20 [place] [id number] [place] [address] 62944- 9696 May, [place] [id number] [place] [address] 43975- 4341 May, [place] [id number] [place] [address] 23998- 0812 May, Chronic constipation K59.09 [place] [id number] [place] [address] 82543- 7759 Apr, [place] [id number] [place] [address] 63216- 4423 Apr, Major depressive disorder, recurrent, moderate F33.1 ; Anxiety disorder, unspecified F41.9 and 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 [place] [address], [place] [address]- 0279 02 Apr, 2016 [place] [id number] [place] [address] 04272- 0547 Mar, Major depressive disorder, recurrent, moderate F33.1 [place] [id number] [place] [address] 62029- 0566 Mar, Major depressive disorder, recurrent, moderate F33.1 ; Generalized anxiety disorder F41.1 and Bipolar I disorder, most recent episode depressed with anxious distress F31.30 [place] [id number] [place] [address] 87959- 6885 Mar, Diabetes E11.9 ; Non morbid obesity due to excess calories E66.09 ; Breast cancer screening Z12.39 and Encounter for immunization Z23 [place] [id number] [place] [address] 21090- 9255 Mar, Major depressive disorder, recurrent, moderate F33.1 ; Anxiety disorder, unspecified F41.9 and 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 [place] [id number] [place] [address] 96363- 4241 Mar, [place] [id number] [place] [address] 34419- 0207 Feb, Major depressive disorder, recurrent, moderate F33.1 ; Anxiety disorder, unspecified F41.9 and 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 [place] [address] [place] [address] 40341- 3412 Feb, [place] [id number] [place] [address] 47742- 7552 Feb, [place] [id number] [place] [address] 13827- 5595 Jan, Major depressive disorder, recurrent, moderate F33.1 ; Generalized anxiety disorder F41.1 and Bipolar disorder, current episode depressed, severe, without psychotic features F31.4 [facility] [id number], [place] [address]- 8088 18 Jan, 2016 Major depressive disorder, recurrent, moderate F33.1 ; Anxiety disorder, unspecified F41.9 and 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 [facility] [address], [place] [address]- 2488 16 Jan, 2016 Bronchitis J40 [facility] [id number] [place] [address] 87874- 0750 Jan, [facility] [address] [place] [address] 64947- 9585 Jan, [place] [id number] [place] [address] 31630- 3010 Jan, Elbow injury, right, initial encounter S59.901A ; Multiple contusions T14.8 and Cervical strain, acute, initial encounter S16.1XXA [place] [address] [place] [address] 94259- 8202 Dec, Major depressive disorder, recurrent, moderate F33.1 ; Generalized anxiety disorder F41.1 and Bipolar disorder with depression F31.30 [place] [address] [place] [address] 69494- 5462 Dec, [facility] [address], [place] [address]- 1025 Dec, [facility] [address], [place] [address]- 6791 Dec, [facility] [address], [place] [address]- 1991 Dec, [facility] [id number] [place] [address] 24535- 0022 Dec, Yeast infection B37.9 [facility] [address], [place] [address]- 1976 Dec, Pneumonia of both lungs due to methicillin resistant Staphylococcus aureus (MRSA), unspecified part of lung J15.212 and Benzodiazepine overdose, accidental or unintentional, subsequent encounter T42.4X1D [place] [address], [place] [address]- 8916 Dec, [place] [address], [place] [address]- 2568 Dec, [place] [id number] [place] [address] 36983- 1608 Dec, Knee pain, left M25.562 and Edema, unspecified type R60.9 [place] [address] [place] [address] 60929- 1995 Dec, [place] [address] [place] [address] 89063- 1582 Dec, Anxiety disorder, unspecified F41.9 and Bipolar disorder, unspecified F31.9 [place] [address] [place] [address] 92175- 9344 Nov, Major depressive disorder, recurrent, moderate F33.1 ; Anxiety disorder, unspecified F41.9 and 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 [place] [address], [place] [address]- 3350 Nov, [place] [address] [place] [address] 35708- 7907 Nov, Migraine without aura and without status migrainosus, not intractable G43.009 [place] [id number] [place] [address] 09920- 9688 Nov, Migraine G43.909 [place] [address] [place] [address] 66869- 0731 Nov, [place] [address] [place] [address] 71675- 1198 Nov, Major depressive disorder, recurrent, moderate F33.1 ; Anxiety disorder, unspecified F41.9 and 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 [place] [id number] [place] [address] 14287- 9929 Oct, Chronic constipation K59.09 and Obesity, unspecified obesity severity, unspecified obesity type E66.9 [place] [id number] [place] [address] 79013- 6590 Oct, Obesity, unspecified obesity severity, unspecified obesity type E66.9 ; Chronic constipation K59.09 and Anxiety disorder, unspecified F41.9 [place] [id number] [place] [address] 54447- 5261 Oct, [place] [address] 06342- 6508 Sep, Diabetes E11.9 ; Edema, unspecified type R60.9 ; Varicose vein of leg I83.90 and Obesity, unspecified obesity severity, unspecified obesity type E66.9 [place] [id number] [place] [address] 92389- 2105 Sep, Edema, unspecified type R60.9 ; Diabetes E11.9 and Knee pain , left M25.562 [place] [id number] [place] [address] 19780- 1292 Sep, [place] [id number] [place] [address] 40859- 7992 Sep, [place] [id number] [place] [address] 41583- 7967 Sep, Major depressive disorder, recurrent, moderate F33.1 ; Generalized anxiety disorder F41.1 and Bipolar disorder, unspecified F31.9 [place] [id number] [place] [address] 88897- 8277 Aug, Chondromalacia of left knee M94.262 [place] [id number] [place] [address] 63624- 5705 Aug, Major depressive disorder, recurrent, moderate F33.1 ; Anxiety disorder, unspecified F41.9 and 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 [facility] [address] [place] [address] 63168- 3685 Aug, [facility] [id number] [place] [address] 43706- 6819 06 Aug, 2015 Osteoarthritis of left knee M17.9 [facility] [id number] [place] [address] 05711- 1061 Aug, [facility] [id number] [place] [address] [phone] July, Major depressive disorder, recurrent, moderate F33.1 ; Anxiety disorder, unspecified F41.9 and 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 [facility] [id number] [place] [address] [phone] July, [facility] [id number] [place] [address] 05726- 8179 July, Chronic constipation K59.09 [facility] [id number] [place] [address] [phone] [id number] Jun, [facility] [id number] [place] [address] [id number] Jun, [facility] [id number] [place] [address] [id number] 4667 14 Jun, 2015 Osteoarthritis of left knee M17.9 [facility] [id number] [place] [address] 81044- 5597 Jun, [facility] [id number] [place] [address] 95591- 7076 Jun, Generalized anxiety disorder F41.1 ; Bipolar disorder, unspecified F31.9 and Major depressive disorder, recurrent, moderate F33.1 [facility] [id number] [place] [address] 74560- 7391 Jun, Migraine G43.909 [place] [id number] [place] [address] 37463- 2553 Jun, Left knee pain M25.562 ; Chronic constipation K59.09 ; Dry mouth R68.2 ; Yeast vaginitis B37.3 and Memory loss R41.3 [place] [address] 03673- 4866 Jun, [place] [address] 59109- 7707 May, [place] [address] 30867- 9370 May, [place] [address] 96681- 5502 May, [address] [address]- 1961 May, [place] [address] 66099- 6816 May, Acute bronchitis with COPD J44.0 ; Knee pain, left M25.562 and Encounter for tobacco use cessation counseling Z71.6 [place] [id number] [place] [address] 40268- 8324 May, [place] [id number] [place] [address] 62687- 9510 Apr, Diabetes E11.9 ; TMJ (sprain of temporomandibular joint) S03.4XXA ; Tobacco abuse Z72.0 ; Migraine G43.909 and Anxiety F41.[address] 43054- 0802 Apr, Generalized anxiety disorder F41.1 and Bipolar disorder, unspecified F31.9 [place] [id number] [place] [address] 30111- 2127 Apr, Major depressive disorder, recurrent, moderate F33.1 ; Anxiety disorder, unspecified F41.9 and 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 [facility] [id number] [place] [address] 99132- 1166 04 Apr, 2015 [facility] [id number] [place] [address] 54904- 9986 Mar, [facility] [id number] [place] [address] 55170- 5960 Feb, [facility] [id number] [place] [address] 12222- 5191 14 Feb, 2015 Major depressive disorder, recurrent, moderate F33.1 ; Anxiety disorder, unspecified F41.9 and 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 [facility] [id number] [place] [address] 54810- 1478 Feb, [facility] [id number] [place] [address] 42655- 3141 Feb, Generalized anxiety disorder F41.1 and Bipolar disorder, unspecified F31.9 [facility] [id number] [place] [address] 35723- 0683 Jan, [facility] [id number] [place] [address] 95648- 3082 Jan, [facility] [id number] [place] [address] 27889- 5690 Jan, Bipolar disorder, unspecified F31.9 and Generalized anxiety disorder F41.1 [facility] [id number] [place] [address] 16644- 2758 Dec, [facility] [id number] [place] [address] 77607- 6505 14 Dec, 2014 Bipolar disorder, unspecified F31.9 and Generalized anxiety disorder F41.1 [facility] [id number] [place] [address] 37647- 5003 Dec, Generalized anxiety disorder F41.1 and Major depressive disorder, recurrent, moderate F33.1 [facility] [id number] [place] [address] 45851- 4127 Oct, Headache 784.0 ; Cough 786.2 ; Vomiting and diarrhea 787.03 and Dysuria 788.1 [facility] [address] 05934- 4833 Aug, [facility] [address] 14059- 5549 Aug, Headache 784.0 and Shortness of breath 786.05 [facility] [address] 69258- 7988 Aug, [facility] [address] 45327- 5857 Aug, Migraine 346.90 [facility] [address] 18256- 2460 Jun, [facility] [id number] [place] [address] 34881- 5632 Jun, [facility] [id number] [place] [address] 37142- 8458 May, [facility] [id number] [place] [address] 31184- 0423 May, [facility] [id number] [place] [address] 42247- 3792 May, [facility] [id number] [place] [address] 92013- 8610 May, [facility] [address] 40030- 0149 May, [facility] [id number] [place] [address] 20435- 8031 May, [facility] [id number] [place] [address] 21930- 6831 Apr, 2014 [facility] [place] [facility] [address] [id number] [place] [address]- 5948 Apr, 2014 [facility] [place] [facility] [address] [id number] [place] [address]- 2698 Apr, 2014 [facility] [place] [facility] [address] [facility] [id number] [place] [address]- 1652 Apr, 2014 [facility] [place] [facility] [address] [id number] [place] [address]- 9499 Apr, 2014 [facility] [place] [facility] [address] [id number] [place] [address]- 7450 Mar, [facility] [place] [facility] [address] [id number] [place] [address]- 0428 Mar, [facility] [place] [facility] [address] [id number] [place] [address]- 5091 Mar, [facility] [place] [facility] [address] [id number] [place] [address]- 4880 Mar, [facility] [place] [facility] [address] [id number] [place] [address]- 7829 Feb, [facility] [place] [facility] [address] [id number] [place] [address]- 4156 Feb, [facility] [place] [facility] [address] [id number] [place] [address]- 9164 18 Feb, 2014 [facility] [place] [facility] [address] [id number] [place] [address]- 7654 18 Feb, 2014 [facility] [place] [facility] [address] [id number] [place] [address]- 7604 16 Feb, 2014 [facility] [place] [facility] [address] [id number] [place] [address]- 5415 16 Feb, 2014 [facility] [place] [facility] [address] [facility] [id number] [place] [address]- 0758 11 Feb, 2014 [facility] [place] [facility] [address] [id number] [place] [address]- 3003 Feb, [facility] [place] [facility] [address] [id number] [place] [address]- 2671 Feb, [facility] [place] [facility] [address] [id number] [place] [address]- 0866 Feb, [facility] [place] [facility] [address] [id number] [place] [address]- 4260 Feb, [facility] [place] [facility] [address] [id number] [place] [address]- 0710 Feb, [facility] [place] [facility] [address] [id number] [place] [address]- 5253 Jan, [facility] [place] [facility] [address] [id number] [place] [address]- 1386 Jan, [facility] [place] [facility] [address] [id number] [place] [address]- 2885 Dec, [facility] [place] [facility] [address] [id number] [place] [address]- 2244 Dec, [facility] [place] [facility] [address] [id number] [place] [address]- 4674 Dec, [facility] [place] [facility] [address] [id number] [place] [address]- 8921 Dec, [facility] [place] [facility] [address] [id number] [place] [address]- 3050 Dec, [facility] [place] [facility] [address] [id number] [place] [address]- 9903 Dec, [facility] [place] [facility] [address] [id number] [place] [address]- 2439 Sep, [facility] [place] [facility] [address] [id number] [place] [address]- 7043 Sep, [facility] [place] [facility] [address] [id number] [place] [address]- 0826 Sep, [facility] [place] [facility] [address] [id number] [place] [address]- 0290 Sep, 2013 [facility] [place] [facility] [address] [id number] [place] [address]- 3262 Sep, 2013 [facility] [place] [facility] [address] [id number] [place] [address]- 3264 Sep, 2013 [facility] [place] [facility] [address] [id number] [place] [address]- 1552 Sep, 2013 [facility] [place] [facility] [address] [id number] [place] [address]- 3327 Sep, 2013 [facility] [place] [facility] [address] [id number] [place] [address]- 3045 Sep, 2013 [facility] [place] [facility] [address] [id number] [place] [address]- 7898 Sep, [facility] [place] [facility] [address] [id number] [place] [address]- 8950 24 Aug, 2013 [facility] [place] [facility] [address] [id number] [place] [address]- 4403 Aug, [facility] [place] [facility] [address] [id number] [place] [address]- 6923 Aug, [facility] [place] [facility] [address] [id number] [place] [address]- 0334 Aug, [facility] [place] [facility] [address] [id number] [place] [address]- 9381 17 Aug, 2013 [facility] [place] [facility] [address] [id number] [place] [address]- 8785 Aug, [facility] [place] [facility] [address] [id number] [place] [address]- 8523 Aug, [facility] [place] [facility] [address] [id number] [place] [address]- 1251 Aug, [facility] [place] [facility] [address] [id number] [place] [address]- 2994 Aug, [facility] [place] [facility] [address] [id number] [place] [address]- 5408 Aug, [facility] [place] [facility] [address] [id number] [place] [address]- 2171 Aug, [facility] [place] [facility] [address] [id number] [place] [address]- 3995 Aug, [facility] [place] [facility] [address] [id number] [place] [address]- 8008 Aug, [facility] [place] [facility] [address] [id number] [place] [address]- 0541 July, [facility] [place] [facility] [address] [id number] [place] [address]- 0435 July, [facility] [place] [facility] [address] [id number] [place] [address]- 8818 July, [facility] [place] [facility] [address] [id number] [place] [address]- 4703 July, [facility] [place] [facility] [address] [id number] [place] [address]- 6673 July, [facility] [place] [facility] [address] [id number] [place] [address]- 4079 July, [facility] [place] [facility] [address] [id number] [place] [address]- 9980 July, [facility] [place] [facility] [address] [id number] [place] [address]- 3434 Jun, [facility] [place] [facility] [address] [id number] [place] [address]- 1886 Jun, [facility] [place] [facility] [address] [id number] [place] [address]- 0174 Jun, [facility] [place] [facility] [address] [id number] [place] [address]- 9963 Jun, [facility] [place] [facility] [address] [id number] [place] [address]- 1941 16 Jun, 2013 [facility] [place] [facility] [address] [id number] [place] [address]- 4871 08 Jun, 2013 [facility] [place] [facility] [address] [id number] [place] [address]- 3114 08 Jun, 2013 [facility] [place] [facility] [address] [id number] [place] [address]- 7499 17 May, 2013 [facility] [place] [facility] [address] [id number] [place] [address]- 7960 17 May, 2013 [facility] [place] [facility] [address] [id number] [place] [address]- 7933 14 May, 2013 [facility] [place] [facility] [address] [id number] [place] [address]- 1128 14 May, 2013 [facility] [place] [facility] [address] [id number] [place] [address]- 8848 13 May, 2013 [facility] [place] [facility] [address] [id number] [place] [address]- 0710 13 May, 2013 [facility] [place] [facility] [address] [id number] [place] [address]- 1350 10 May, 2013 [facility] [place] [facility] [address] [id number] [place] [address]- 1025 10 May, 2013 [facility] [place] [facility] [address] [id number] [place] [address]- 2353 07 May, 2013 [facility] [place] [facility] [address] [id number] [place] [address]- 5626 Apr, [facility] [place] [facility] [address] [id number] [place] [address]- 1469 Apr, [facility] [place] [facility] [address] [id number] [place] [address]- 0078 18 Apr, 2013 [facility] [place] [facility] [address] [id number] [place] [address]- 9027 Apr, [facility] [place] [facility] [address] [id number] [place] [address]- 1696 Apr, [facility] [place] [facility] [address] [id number] [place] [address]- 6876 Apr, [facility] [place] [facility] [address] [id number] [place] [address]- 4466 Apr, [facility] [place] [facility] [address] [id number] [place] [address]- 8720 Apr, [facility] [place] [facility] [address] [id number] [place] [address]- 1936 Apr, [facility] [place] [facility] [address] [id number] [place] [address]- 4322 Apr, [facility] [place] [facility] [address] [id number] [place] [address]- 7576 Mar, [facility] [place] [facility] [address] [id number] [place] [address]- 6978 Mar, [facility] [place] [facility] [address] [id number] [place] [address]- 0127 Mar, [facility] [place] [facility] [address] [facility] [id number] [place] [address]- 4095 Mar, [facility] [place] [facility] [address] [id number] [place] [address]- 7223 Mar, [facility] [place] [facility] [address] [id number] [place] [address]- 1328 Mar, [facility] [place] [facility] [address] [id number] [place] [address]- 8648 Mar, [facility] [place] [facility] [address] [id number] [place] [address]- 8914 Mar, [facility] [place] [facility] [address] [id number], [place] [address]- 4178 Feb, [facility] [place] [facility] [address] [id number] [place] [address]- 1569 Feb, [facility] [place] [facility] [address] [id number] [place] [address]- 5061 Jan, [facility] [place] [facility] [address] [id number] [place] [address]- 3169 Jan, [facility] [place] [facility] [address] [id number] [place] [address]- 7475 Jan, [facility] [place] [facility] [address] [id number] [place] [address]- 8652 Jan, [facility] [place] [facility] [address] [id number] [place] [address]- 7431 Jan, [facility] [place] [facility] [address] [id number] [place] [address]- 9140 Jan, [facility] [place] [facility] [address] [id number] [place] [address]- 1431 Jan, [facility] [place] [facility] [address] [id number] [place] [address]- 5081 Jan, [facility] [place] [facility] [address] [id number] [place] [address]- 3857 Dec, [facility] [place] [facility] [address] [id number] [place] [address]- 6375 Dec, [facility] [place] [facility] [address] [id number] [place] [address]- 0401 Dec, [facility] [place] [facility] [address] [id number] [place] [address]- 8471 20 Nov, 2012 [facility] [place] [facility] [address] [id number] [place] [address]- 4879 13 Nov, 2012 [facility] [place] [facility] [address] [id number] [place] [address]- 2810 12 Nov, 2012 [facility] [place] [facility] [address] [id number] [place] [address]- 9816 Nov, [facility] [place] [facility] [address] [id number] [place] [address]- 0510 Nov, [facility] [place] [facility] [address] [id number] [place] [address]- 5321 Nov, [facility] [place] [facility] [address] [id number] [place] [address]- 2504 Oct, [facility] [place] [facility] [address] [id number] [place] [address]- 8343 Oct, [facility] [place] [facility] [address] [id number] [place] [address]- 1897 Sep, [facility] [place] [facility] [address] [id number] [place] [address]- 0287 Sep, [facility] [place] [facility] [address] [id number] [place] [address]- 9885 Sep, [facility] [place] [facility] [address] [id number] [place] [address]- 2456 Sep, [facility] [place] [facility] [address] [id number] [place] [address]- 7142 Sep, [facility] [place] [facility] [address] [id number] [place] [address]- 1340 Sep, [facility] [place] [facility] [address] [id number] [place] [address]- 3200 Sep, [facility] [place] [facility] [address] [id number] [place] [address]- 8579 Aug, [facility] [place] [facility] [address] [id number] [place] [address]- 7995 Aug, [facility] [place] [facility] [address] [id number] [place] [address]- 4824 Aug, [facility] [place] [facility] [address] [id number] [place] [address]- 2022 Aug, [facility] [place] [facility] [address] [id number] [place] [address]- 0667 Aug, [facility] [address] [id number] [place] [address]- 4693 Aug, [facility] [address] [id number] [place] [address]- 0752 July, [facility] [place] [facility] [address] [id number] [place] [address]- 4485 July, [facility] [address] [id number] [place] [address]- 0227 July, [facility] [address] [id number] [place] [address]- 5052 July, [facility] [place] [facility] [address] [id number] [place] [address]- 9025 July, [facility] [place] [facility] [address] [id number] [place] [address]- 2713 July, [facility] [place] [facility] [address] [id number] [place] [address]- 1013 Jun, [facility] [place] [facility] [address] [id number] [place] [address]- 5785 Jun, [facility] [address] [id number] [place] [address]- 5184 Jun, [facility] [place] [facility] [address] [id number] [place] [address]- 6513 Jun, [facility] [address] [id number] [place] [address]- 3042 Jun, [facility] [address] [id number] [place] [address]- 0944 Jun, [facility] [address] [id number] [place] [address]- 5262 Jun, [facility] [address] [id number] [place] [address]- 3653 May, [facility] [address] [id number] [place] [address]- 7606 04 May, 2012 [facility] [place] [facility] [address] [id number] [place] [address] 26 Apr, 2012 [facility] [place] [facility] [address] [id number] [place] [address] Apr, [facility] [place] [facility] [address] [id number] [place] [address] 2546 18 Apr, 2012 [facility] [place] [facility] [address] [id number] [place] [address] 18 Apr, 2012 [facility] [place] [facility] [address] [id number] [place] [address] 12 Apr, 2012 [facility] [place] [facility] [address] [id number] [place] [address] 08 Apr, 2012 [facility] [place] [facility] [address] [id number] [place] [address] 07 Apr, 2012 [facility] [place] [facility] [address] [id number] [place] [address] 07 Apr, 2012 [facility] [place] [facility] [address] [id number] [place] [address] 06 Apr, 2012 [facility] [place] [facility] [address] [id number] [place] [address] Apr, [facility] [place] [facility] [address] [id number] [place] [address] 2546 Apr, [facility] [place] [facility] [address] [id number] [place] [address] Mar, [facility] [place] [facility] [address] [id number] [place] [address] Mar, [facility] [place] [facility] [address] [id number] [place] [address] Mar, [facility] [place] [facility] [address] [id number] [place] [address] Mar, [facility] [address] [id number] [place] [address] Mar, [facility] [address] [id number] [place] [address] Mar, [facility] [address] [id number] [place] [address] Mar, [facility] [address] [id number] [place] [address] Mar, [facility] [address] [id number] [place] [address] Mar, [facility] [address] [id number] [place] [address] Mar, [facility] [address] [id number] [place] [address] Mar, [facility] [address] [id number] [place] [address] Mar, [facility] [address] [id number] [place] [address] 118[address] Mar, [facility] [address] [id number] [place] [address] Feb, [facility] [address] [id number] [place] [address] Feb, [facility] [address] [id number] [place] [address] Feb, [facility] [address] [id number] [place] [address] Feb, [facility] [address] [id number] [place] [address] Feb, [facility] [address] [id number] [place] [address] Feb, [facility] [place] [facility] [address] [id number] [place] [address] Feb, [facility] [place] [facility] [address] [id number] [place] [address] Feb, [facility] [place] [facility] [address] [id number] [place] [address] Feb, [facility] [place] [facility] [address] [id number] [place] [address] Feb, [facility] [place] [facility] [address] [id number] [place] [address] Feb, [facility] [place] [facility] [address] [id number] [place] [address] Feb, [facility] [place] [facility] [address] [id number] [place] [address]- [address] Feb, [facility] [place] [facility] [address] [id number] [place] [address]- [address] Feb, [facility] [place] [facility] [address] [id number] [place] [address] Feb, [facility] [place] [facility] [address] [id number], [place] [address] Jan, [facility] [place] [facility] [address] [id number], [place] [address] Jan, [facility] [place] [facility] [address] [id number], [place] [address] Jan, [facility] [place] [facility] [address] [id number] [place] [address] Jan, [facility] [place] [facility] [address] [id number], [place] [address] Dec, [facility] [place] [facility] [address] [id number] [place] [address]- [address] Dec, [facility] [place] [facility] [address] [id number] [place] [address]- [address] Dec, 2011 [facility] [place] [facility] [address] [id number] [place] [address]- [address] Dec, 2011 [facility] [place] [facility] [address] [id number] [place] [address]- 3586 Dec, 2011 [facility] [place] [facility] [address] [id number] [place] [address]- [address]20 Dec, 2011 [facility] [place] [facility] [address] [id number] [place] [address]- 9066 16 Dec, 2011 [facility] [place] [facility] [address] [id number] [place] [address]- [address]773 16 Dec, 2011 [facility] [place] [facility] [address] [id number] [place] [address] 07 Dec, 2011 [facility] [place] [facility] [address] [id number] [place] [address]- 5899 04 Dec, 2011 [facility] [place] [facility] [address] [id number] [place] [address]- 9948 03 Dec, 2011 [facility] [place] [facility] [address] [id number] [place] [address] 25 Sep, 2011 [facility] [place] [facility] [address] [facility] [id number] [place] [address]- [address] 24 Sep, 2011 [facility] [place] [facility] [address] [id number] [place] [address]- 5410 20 Sep, 2011 [facility] [place] [facility] [address] [id number], [place] [address] 19 Sep, 2011 [facility] [place] [facility] [address] [id number] [place] [address]- 2458 17 Sep, 2011 [facility] [place] [facility] [address] [facility] [id number] [place] [address]- [address] 16 Sep, 2011 [facility] [place] [facility] [address] [facility] [id number] [address] 14 Sep, 2011 [facility] [place] [facility] [address] [id number] [place] [address] 13 Sep, 2011 [facility] [place] [facility] [address] [id number] [place] [address] 12 Sep, 2011 [facility] [place] [facility] [address] [id number] [facility] [place] [address] 2546 07 Sep, 2011 [facility] [place] [facility] [address] [id number] [place] [address] 06 Sep, 2011 [facility] [place] [facility] [address] [id number] [place] [address] 2540 06 Sep, 2011 [facility] [place] [facility] [address] [id number] [place] [address] 05 Nov, 2011 [facility] [place] [facility] [address] [id number] [place] [address] 29 Oct, 2011 [facility] [place] [facility] [address] [id number] [place] [address] 4[address] 29 Oct, 2011 [facility] [place] [facility] [address] [id number] [place] [address] Oct, [facility] [place] [facility] [address] [id number] [place] [address] 475[address] 28 Oct, 2011 [facility] [place] [facility] [address] [id number] [place] [address] 7695 Oct, [facility] [place] [facility] [address] [id number] [place] [address] 2540 Oct, [facility] [place] [facility] [address] [id number] [place] [address] 20 Oct, 2011 [facility] [place] [facility] [address] [id number] [place] [address] 254 16 Oct, 2011 [facility] [place] [facility] [address] [id number] [place] [address] 2548 15 Oct, 2011 [facility] [place] [facility] [address] [id number] [place] [address] Oct, [facility] [place] [facility] [address] [id number] [place] [address] 48[address] Oct, [facility] [place] [facility] [address] [id number] [place] [address] 3959 Sep, [facility] [place] [facility] [address] [id number] [place] [address] 5413 Sep, [facility] [place] [facility] [address] [id number] [place] [address] 3161 Sep, [facility] [place] [facility] [address] [id number] [place] [address]- 2596 Sep, [facility] [place] [facility] [address] [id number] [place] [address]- 2692 Sep, [facility] [place] [facility] [address] [id number] [place] [address] 9116 Sep, [facility] [place] [facility] [address] [id number] [place] [address] 5256 Aug, [facility] [place] [facility] [address] [id number] [place] [address] 2776 July, [facility] [place] [facility] [address] [id number] [place] [address] 0282 July, [facility] [place] [facility] [address] [id number] [place] [address] 3766 Jun, [facility] [place] [facility] [address] [id number] [place] [address] 8291 Jun, [facility] [place] [facility] [address] [id number] [place] [address]- 9629 Jun, [facility] [place] [facility] [address] [id number] [place] [address] 8969 Jun, [facility] [place] [facility] [address] [id number] [place] [address] 8375 Jun, [facility] [place] [facility] [address] [id number] [place] [address]- 5196 10 Jun, 2011 [facility] [address] [id number] [place] [address] 8690 09 Jun, 2011 [facility] [place] [facility] [address] [id number] [place] [address] 0806 08 Jun, 2011 [facility] [address] [id number] [place] [address] 1102 03 Jun, 2011 [facility] [place] [facility] [address] [id number] [place] [address] 0064 Jun, [facility] [address] [id number] [place] [address]- 6096 Jun, [facility] [place] [facility] [address] [id number] [place] [address] 9506 19 May, 2011 [facility] [place] [facility] [address] [id number] [place] [address] 6118 16 May, 2011 [facility] [address] [id number] [place] [address] 8557 14 May, 2011 [facility] [place] [facility] [address] [id number] [place] [address] 8657 06 May, 2011 [facility] [address] [id number] [place] [address]- 6792 28 Apr, 2011 [facility] [place] [facility] [address] [id number] [place] [address] 0134 28 Apr, 2011 [facility] [place] [facility] [address] [id number] [place] [address]- 5108 27 Apr, 2011 [facility] [place] [facility] [address] [id number] [place] [address] 23 Apr, 2011 [facility] [place] [facility] [address] [id number] [place] [address]- 2738 23 Apr, 2011 [facility] [place] [facility] [address] [id number] [place] [address]- 7963 Apr, [facility] [place] [facility] [address] [id number] [place] [address]- 7255 Apr, [facility] [place] [facility] [address] [id number] [place] [address]- 4938 Apr, [facility] [place] [facility] [address] [id number] [place] [address]- 3747 Mar, [facility] [place] [facility] [address] [id number] [place] [address]- 7552 Mar, [facility] [place] [facility] [address] [id number] [place] [address]- 0257 Mar, [facility] [place] [facility] [address] [id number] [place] [address]- 7429 Mar, [facility] [place] [facility] [address] [id number] [place] [address]- 7613 Mar, [facility] [place] [facility] [address] [id number] [place] [address]- 5320 Mar, [facility] [place] [facility] [address] [id number] [place] [address]- 4440 Mar, [facility] [place] [facility] [address] [id number] [place] [address]- 0775 Mar, [facility] [place] [facility] [address] [id number] [place] [address]- 9553 Mar, [facility] [place] [facility] [address] [id number] [place] [address]- 6150 Mar, [facility] [place] [facility] [address] [id number] [place] [address]- 0255 Mar, [facility] [place] [facility] [address] [id number] [place] [address]- 5905 Mar, [facility] [place] [facility] [address] [id number] [place] [address]- 3684 Mar, [facility] [place] [facility] [address] [id number] [place] [address]- 5817 Mar, [facility] [address] [id number] [place] [address]- 4180 Mar, [facility] [address] [id number] [place] [address] Mar, [facility] [address] [id number] [place] [address]- 7605 Feb, [facility] [address] [id number] [place] [address]- 3990 Feb, [facility] [address] [id number] [place] [address]- 4396 Feb, [facility] [address] [id number] [place] [address]- 2938 Jan, [facility] [address] [id number] [place] [address]- 6909 Jan, [facility] [address] [id number] [place] [address]- 1998 Jan, [facility] [address] [id number] [place] [address]- 6202 Dec, [facility] [address] [id number] [place] [address]- 0406 Dec, [facility] [address] [id number] [place] [address]- 0842 16 Nov, 2010 [facility] [place] [facility] [address] [id number] [place] [address]- 8136 Oct, [facility] [place] [facility] [address] [id number] [place] [address]- 8374 Oct, [facility] [place] [facility] [address] [id number] [place] [address]- 0531 Oct, [facility] [place] [facility] [address] [id number] [place] [address]- 2529 Sep, [facility] [address] [facility] [id number] [place] [address]- 2546 Apr, [facility] [address] [facility] [id number] [place] [address]- 2546 Feb, [facility] [address] [facility] [id number] [place] [address]- 2546 Jan, IMMUNIZATIONS No Known Immunizations SOCIAL HISTORY Never Assessed REASON FOR VISIT Requests return call PLAN OF CARE VITAL SIGNS MEDICATIONS [...] 2/2 Benzos OD, pneumonia MRSA, MAYRA, Hypokalemia-- [facility] 12/20/2015 Hospitalization History COPD exacerbation, Asthma-[facility] 09/21/16 Hospitalization History COPD-[facility] 12/30/2016 Hospitalization History OS and [facility]oberto for inpatient-last around 2006 or so. Hospitalization History for COPD x2 Mar 2017 Hospitalization History Upper GI bleed at apr 2017 Hospitalization History [facility] [place], operated by [facility]- COPD Exacerbation, diarrhea 05/23/2017 Hospitalization History COPD exacerbation-[facility] 06/13/17 Hospitalization History CHF 09/09/2017
--- OUTSIDE RECORDS SUMMARY | 2017-11-19 13:24 | XMS REPORT ---
Author Author MARCELLUS TINOCO Organization [facility] Address [address] [place] [address] Care Team Providers Care Fern Cutter Name Role Phone MARCELLUS TINOCO Unavailable PROBLEMS Type Condition ICD9-CM Code JOB37-OL Code Onset Dates Condition Status SNOMED Code Problem Bipolar disorder with depression F31.30 Active 66531795 Problem Other emphysema J43.8 Active 03639881 Problem Migraine without aura and without status migrainosus, not intractable G43.009 Active 068942610 Problem Anxiety F41.9 Active 42495907 Problem COPD with exacerbation J44.1 Active 101932983 Problem Methamphetamine use disorder, moderate, 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 Active 58073402 Problem Chronic bronchitis, unspecified chronic bronchitis type J42 Active 03886494 Problem Intractable cyclical vomiting with nausea G43.A1 Active 30688482 Problem Diabetes E11.9 Active 199172122 Problem 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 Active Problem Tobacco abuse Z72.0 Active 96786784 Problem Examination of eyes and vision V72.0 Active 614924322 Problem Chronic constipation K59.09 Active 580178521 Problem Memory loss R41.3 Active 45979266 Problem Migraine G43.909 Active 46826525 Problem Bipolar disorder, unspecified F31.9 Active 70431649 Problem TMJ (sprain of temporomandibular joint) S03.4XXA Active 77963967 Problem Generalized anxiety disorder F41.1 Active 23912595 ALLERGIES Substance Reaction Event Type Date Status amitriptyline OD on medication, causes parasonias Non Drug Allergy Aug, Active Buspar 10 Mg Tablet made legs shaky Non Drug Allergy Aug, Active Benzodiazepines NARC ALERT Broke narc contract Non Drug Allergy Aug Active Narcotic NARC ALERT Broke Narc contract Non Drug Allergy Aug, Active ENCOUNTERS Encounter Location Date Diagnosis [facility] [address] [address] Oct, [facility] [address] [address] 67[address] Oct, [facility] [address] [address] 8[address] Oct, [facility] [address] [address] 86[address] Oct, Thrush B37.0 [facility] [address] [address] 9[address] Sep, COPD with exacerbation J44.1 and Anxiety F41.9 [facility] [address] [address] 3[address] Sep, [facility] [address] [address] 3426 Sep, [facility] [address] [address] 1532 Sep, [facility] [address] [address] Sep, Acute congestive heart failure, unspecified heart failure type I50.9 and Anxiety disorder, unspecified F41.9 [facility] [address] [address] Sep, Heart failure, unspecified HF chronicity, unspecified heart failure type I50.9 [facility] [address] [address] Sep, [facility] [address] [address] 3904 Aug, Chronic obstructive pulmonary disease with acute exacerbation J44.1 [facility] [address] [address] 67[address] Aug, [facility] [address] [address] 3985 Aug, [facility] [address], [place] [address] 3[address] July, [facility] [id number] [place] [address] 97540- 4494 July, [facility] [id number] [place] [address] 31401- 7901 July, Diabetes E11.9 and Chronic obstructive pulmonary disease with acute exacerbation J44.1 [facility] [id number] [place] [address] 14852- 5049 Jun, Chronic obstructive pulmonary disease with acute exacerbation J44.1 ; Diabetes E11.9 and Tobacco abuse Z72.0 [facility] [id number] [place] [address] 18154- 1150 Jun, [facility] [id number] [place] [address] 95552- 7061 Jun, [facility] [id number] [place] [address] 51596- 3964 May, [facility] [id number] [place] [address] 18107- 8170 May, [facility] [address] [address] 17 May, 2017 [facility] [id number] [place] [address] 20021- 1290 16 May, 2017 [facility] [id number] [place] [address] 03603- 3179 15 May, 2017 [facility] [id number] [place] [address] 40707- 1004 14 May, 2017 Diarrhea, unspecified type R19.7 and Intractable cyclical vomiting with nausea G43.A1 [facility] [address], [place] [address] 3942 May, [facility] [id number] [place] [address] 90158- 3942 05 May, 2017 [facility] [id number] [place] [address] 20373- 4070 28 Apr, 2017 COPD exacerbation J44.1 ; Esophageal candidiasis B37.81 ; Other acute gastritis with hemorrhage K29.01 and Acute posthemorrhagic anemia D62 [facility] [id number] [place] [address] 25946- 8584 Apr, Viral illness B34.9 and COPD exacerbation J44.1 [facility] [address] [address] Apr, Shortness of breath R06.02 and Pneumonia of both lower lobes due to infectious organism J18.9 [facility] [id number] [place] [address] 59358 -6615 Mar, COPD with acute exacerbation J44.1 [place] [facility] [address] 44684- 4495 Mar, Chronic obstructive pulmonary disease with acute exacerbation J44.1 and Diabetes E11.9 [place] [facility] [address] 91489- 8061 Mar, [facility] [id number] [place] [address] 08034- 7032 Mar, [facility] [id number] [place] [address] 65084 -3601 Mar, COPD exacerbation J44.1 [facility] [id number] [place] [address] 70401- 5978 Mar, [facility] [address] 7[address]75- 6199 Mar, Migraine G43.909 ; Hypokalemia E87.6 and Type 2 diabetes mellitus without complications E11.9 [facility] [id number] [place] [address] 75847- 6962 Feb, [place] [id number] [place] [address] 26185- 7894 Feb, [facility] [id number] [place] [address] 39279- 2105 Feb, Methamphetamine use disorder, moderate, 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 ; Major depressive disorder, recurrent, moderate F33.1 ; Anxiety disorder, unspecified F41.9 and Tobacco abuse Z72.0 [place] [id number] [place] [address] 66254- 8445 Jan, Major depressive disorder, recurrent, moderate F33.1 [facility] [id number] [place] [address] 77829- 2758 16 Jan, 2017 [facility] [id number] [place] [address] 25757- 4092 Jan, [place] [id number] [place] [address] 64306- 8826 Jan, Major depressive disorder, recurrent, moderate F33.1 [place] [id number] [place] [address] 93532- 5079 Jan, Major depressive disorder, recurrent, moderate F33.1 ; Anxiety disorder, unspecified F41.9 ; Methamphetamine use disorder, moderate, 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 and Tobacco abuse Z72.0 [place] [id number] [place] [address] 53932- 5385 Jan, [place] [id number] [place] [address] 69345- 3153 Jan, Chronic obstructive pulmonary disease with acute exacerbation J44.1 and Diabetes E11.9 [place] [address] 04171- 8751 Jan, [place] [facility] [id number] [place] [address] 46097- 3554 Jan, [place] [id number] [place] [address] 03611- 5194 Dec, Acute respiratory failure with hypoxia J96.01 ; Chronic bronchitis, unspecified chronic bronchitis type J42 and Tobacco use Z72.0 [facility] [id number] [place] [address] 73672- 8590 Dec, [facility] [id number] [place] [address] [id number] Nov, Dental caries K02.9 and Dental examination Z01.20 [facility] [id number] [place] [address] 96119- 1995 Nov, Major depressive disorder, recurrent, moderate F33.1 ; Anxiety disorder, unspecified F41.9 and 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 [facility] [id number] [place] [address] [id number] Oct, Dental examination Z01.20 [place] [id number] [place] [address] 47245- 8637 Oct, [facility] [id number] [place] [address] 27070- 0173 Oct, Diabetes E11.9 and Thrush B37.0 [place] [id number] [place] [address] 90498- 2260 Oct, [facility] [id number] [place] [address] 75877- 9366 Oct, [facility] [id number] [place] [address] 95963- 4128 Oct, [facility] [id number] [place] [address] 47751- 9122 Sep, Major depressive disorder, recurrent, moderate F33.1 ; Anxiety disorder, unspecified F41.9 and Bipolar disorder, unspecified F31.9 [facility] [address] [place] [address] 40207- 1051 Sep, Acute exacerbation of chronic obstructive pulmonary disease (COPD) J44.1 and Migraine G43.909 [place] [address] [address]- 8082 Sep, [facility] [id number] [place] [address] [id number] Sep, [facility] [address], [place] [address]- 7965 Sep, Acute exacerbation of chronic obstructive pulmonary disease (COPD) J44.1 [facility] [id number] [place] [address] 32911 -9324 Sep, Acute exacerbation of chronic obstructive pulmonary disease (COPD) J44.1 [facility] [id number] [place] [address] 42770- 1747 Aug, [facility] [id number] [place] [address] 86464- 1265 Aug, Major depressive disorder, recurrent, moderate F33.1 ; Anxiety disorder, unspecified F41.9 and 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 [facility] [address] [place] [address] 52039- 4859 Aug, Wheezing R06.2 ; Non morbid obesity due to excess calories E66.09 ; Migraine without aura and without status migrainosus, not intractable G43.009 and Tobacco abuse Z72.0 [facility] [address] [address] 14 Aug, 2016 Encounter for dental examination Z01.20 [facility] [address] [place] [address] 90550- 8484 02 Aug, 2016 Major depressive disorder, recurrent, moderate F33.1 ; Anxiety disorder, unspecified F41.9 and 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 [facility] [address], [place] [address]- 7672 July, [facility] [id number] [place] [address] 32751- 2912 July, [facility] [id number] [place] [address] 69057- 2541 July, [facility] [id number] [place] [address] 38340- 4314 July, Diabetes E11.9 [facility] [id number] [place] [address] 51599- 0920 Jun, Major depressive disorder, recurrent, moderate F33.1 [facility] [id number] [place] [address] 33224- 8327 Jun, Major depressive disorder, recurrent, moderate F33.1 ; 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 ; Generalized anxiety disorder F41.1 and Bipolar disorder, unspecified F31.9 [facility] [id number] [place] [address] 55972- 2744 Jun, Diabetes E11.9 ; Migraine G43.909 ; Thrush B37.0 and Wheezing R06.2 [facility] [address] [id number] Jun, Dental examination Z01.20 [facility] [id number] [place] [address] 64410- 8452 Jun, [facility] [id number] [place] [address] 70116- 2608 Jun, Major depressive disorder, recurrent, moderate F33.1 ; Anxiety disorder, unspecified F41.9 and 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 [facility] [id number] [place] [address] 00927- 9755 Jun, [facility] [address] 30205- 2105 Jun, Wheezing R06.2 [facility] [id number] [place] [address] [id number] Jun, Dental caries K02.9 [facility] [address] 33989- 0351 Jun, Major depressive disorder, recurrent, moderate F33.1 ; Anxiety disorder, unspecified F41.9 and 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 [place] [facility] [address] [place] [address] 34680- 1727 Jun, RLQ abdominal pain R10.31 ; Diabetes E11.9 ; Obesity, unspecified obesity severity, unspecified obesity type E66.9 ; Wheezing R06.2 and Abnormal urinalysis R82.90 [facility] [id number] [place] [address] 50880- 2009 May, [address] 14221- 6773 May, Well woman exam Z01.419 ; Breast cancer screening Z12.39 ; Cervical cancer screening Z12.4 ; Urinary frequency R35.0 ; Edema, unspecified type R60.9 and Chronic constipation K59.09 [place] [id number] [place] [address] 81320- 9262 May, Major depressive disorder, recurrent, moderate F33.1 ; Anxiety disorder, unspecified F41.9 and 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 [facility] [id number] [place] [address] [id number] May, Dental examination Z01.20 [place] [id number] [place] [address] 79287- 9263 May, [place] [id number] [place] [address] 35328- 5760 May, [facility] [id number] [place] [address] 24351- 5997 May, Chronic constipation K59.09 [place] [id number] [place] [address] 26567- 5387 Apr, [place] [address] 39904- 5731 Apr, Major depressive disorder, recurrent, moderate F33.1 ; Anxiety disorder, unspecified F41.9 and 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 [place] [id number] [place] [address] 68388- 7016 Apr, [place] [id number] [place] [address] 99543- 2338 Mar, Major depressive disorder, recurrent, moderate F33.1 [place] [facility] [address] 81701- 5272 Mar, Major depressive disorder, recurrent, moderate F33.1 ; Generalized anxiety disorder F41.1 and Bipolar I disorder, most recent episode depressed with anxious distress F31.30 [place] [id number] [place] [address] 25425- 6162 Mar, Diabetes E11.9 ; Non morbid obesity due to excess calories E66.09 ; Breast cancer screening Z12.39 and Encounter for immunization Z23 [place] [address] [place] [address] 47269- 0217 Mar, Major depressive disorder, recurrent, moderate F33.1 ; Anxiety disorder, unspecified F41.9 and 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 [place] [id number] [place] [address] 52065- 9395 Mar, [place] [id number] [place] [address] 17638- 7958 Feb, Major depressive disorder, recurrent, moderate F33.1 ; Anxiety disorder, unspecified F41.9 and 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 [place] [id number] [place] [address] 86021- 5187 Feb, [place] [facility] [id number] [place] [address] 16385- 4935 Feb, [place] [address] 57088- 5470 Jan, Major depressive disorder, recurrent, moderate F33.1 ; Generalized anxiety disorder F41.1 and Bipolar disorder, current episode depressed, severe, without psychotic features F31.4 [facility] [address] [place] [address] 94153- 2724 Jan, Major depressive disorder, recurrent, moderate F33.1 ; Anxiety disorder, unspecified F41.9 and 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 [facility] [id number] [place] [address] 86945- 0922 Jan, Bronchitis J40 [facility] [id number] [place] [address] 29965- 6292 Jan, [facility] [id number] [place] [address] 90649- 7248 Jan, [facility] [id number] [place] [address] 41645- 3254 Jan, Elbow injury, right, initial encounter S59.901A ; Multiple contusions T14.8 and Cervical strain, acute, initial encounter S16.1XXA [facility] [id number] [place] [address] 07497- 0621 Dec, Major depressive disorder, recurrent, moderate F33.1 ; Generalized anxiety disorder F41.1 and Bipolar disorder with depression F31.30 [facility] [id number] [place] [address] 59618- 6960 Dec, [facility] [id number] [place] [address] 09856- 7313 Dec, [facility] [id number] [place] [address] 27317- 5667 Dec, [facility] [id number] [place] [address] 68905- 6569 Dec, [facility] [id number] [place] [address] 16146- 4226 Dec, Yeast infection B37.9 [place] [address], [place] [address]- 8391 Dec, Pneumonia of both lungs due to methicillin resistant Staphylococcus aureus (MRSA), unspecified part of lung J15.212 and Benzodiazepine overdose, accidental or unintentional, subsequent encounter T42.4X1D [facility] [address], [place] [address]- 1959 Dec, [place] [id number] [place] [address] 97041- 9849 Dec, [place] [id number] [place] [address] 25483- 3825 Dec, Knee pain, left M25.562 and Edema, unspecified type R60.9 [place] [address] [place] [address] 57780- 2553 Dec, [place] [id number] [place] [address] 76282- 9637 Dec, Anxiety disorder, unspecified F41.9 and Bipolar disorder, unspecified F31.9 [place] [address] [place] [address] 36590- 7399 Nov, Major depressive disorder, recurrent, moderate F33.1 ; Anxiety disorder, unspecified F41.9 and 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 [place] [address] [place] [address] 11533- 9767 Nov, [place] [address] [place] [address] 99014- 6002 Nov, Migraine without aura and without status migrainosus, not intractable G43.009 [place] [facility] [address] [place] [address] 23300- 7067 Nov, Migraine G43.909 [place] [facility] [address] [place] [address] 07306- 9782 Nov, [place] [id number] [place] [address] 92313- 3593 Nov, Major depressive disorder, recurrent, moderate F33.1 ; Anxiety disorder, unspecified F41.9 and 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 [facility] [id number] [place] [address] 44616- 5343 Oct, Chronic constipation K59.09 and Obesity, unspecified obesity severity, unspecified obesity type E66.9 [facility] [id number] [place] [address] 76947- 6637 Oct, Obesity, unspecified obesity severity, unspecified obesity type E66.9 ; Chronic constipation K59.09 and Anxiety disorder, unspecified F41.9 [facility] [id number] [place] [address] 59759- 5700 Oct, [place] [id number] [place] [address] 92025- 8111 Sep, Diabetes E11.9 ; Edema, unspecified type R60.9 ; Varicose vein of leg I83.90 and Obesity, unspecified obesity severity, unspecified obesity type E66.9 [facility] [id number] [place] [address] 19636- 8480 Sep, Edema, unspecified type R60.9 ; Diabetes E11.9 and Knee pain , left M25.562 [place] [id number] [place] [address] 34871- 7808 Sep, [place] [id number] [place] [address] 89687- 0686 Sep, [place] [id number] [place] [address] 19791- 4678 Sep, Major depressive disorder, recurrent, moderate F33.1 ; Generalized anxiety disorder F41.1 and Bipolar disorder, unspecified F31.9 [place] [id number] [place] [address] 31679- 4759 Aug, Chondromalacia of left knee M94.262 [facility] [address] [facility] [id number] [address]- [address] 24 Aug, 2015 Major depressive disorder, recurrent, moderate F33.1 ; Anxiety disorder, unspecified F41.9 and 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 [facility] [id number] [address]- 9740 Aug, [facility] [id number] [place] [address] Aug, Osteoarthritis of left knee M17.9 [facility] [id number] [place] [address] Aug, [facility] [id number] [place] [address] July, Major depressive disorder, recurrent, moderate F33.1 ; Anxiety disorder, unspecified F41.9 and 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 [facility] [id number] [address] July, [facility] [id number] [place] [address] July, Chronic constipation K59.09 [facility] [id number] [address] Jun, [facility] [id number] [address] Jun, [facility] [id number] [place] [address] 14 Jun, 2015 Osteoarthritis of left knee M17.9 [facility] [address] [id number] [place] [address] 43451- 9287 Jun, [facility] [address] [id number] [address] 6777 Jun, Generalized anxiety disorder F41.1 ; Bipolar disorder, unspecified F31.9 and Major depressive disorder, recurrent, moderate F33.1 [place] [id number] [place] [address] 08226- 9660 Jun, Migraine G43.909 [place] [id number] [place] [address] 12426- 6005 Jun, Left knee pain M25.562 ; Chronic constipation K59.09 ; Dry mouth R68.2 ; Yeast vaginitis B37.3 and Memory loss R41.3 [place] [id number] [place] [address] 06086- 2664 Jun, [place] [address] 68557- 9064 May, [place] [address] 68133- 1629 May, [place] [address] 39669- 5428 May, [place] [id number] [place] [address] 23695- 5545 May, [place] [id number] [place] [address] 85433- 5327 May, Acute bronchitis with COPD J44.0 ; Knee pain, left M25.562 and Encounter for tobacco use cessation counseling Z71.6 [place] [id number] [place] [address] 75726- 6658 May, [place] [id number] [place] [address] 40429- 1939 Apr, Diabetes E11.9 ; TMJ (sprain of temporomandibular joint) S03.4XXA ; Tobacco abuse Z72.0 ; Migraine G43.909 and Anxiety F41.9 [place] [id number] [place] [address] 79638- 4442 Apr, Generalized anxiety disorder F41.1 and Bipolar disorder, unspecified F31.9 [facility] [address] [address] 2532 24 Apr, 2015 Major depressive disorder, recurrent, moderate F33.1 ; Anxiety disorder, unspecified F41.9 and 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 [facility] [id number] [place] [address] 07198- 7526 Apr, [facility] [id number] [place] [address] 19215- 6686 Mar, [facility] [id number] [place] [address] 95307- 0884 Feb, [facility] [id number] [place] [address] 00140- 2470 Feb, Major depressive disorder, recurrent, moderate F33.1 ; Anxiety disorder, unspecified F41.9 and 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 [facility] [id number] [place] [address] 09034- 7359 Feb, [facility] [id number] [place] [address] 74059- 7071 Feb, Generalized anxiety disorder F41.1 and Bipolar disorder, unspecified F31.9 [facility] [id number] [place] [address] 99799- 5468 Jan, [facility] [id number] [place] [address] 82308- 5092 18 Jan, 2015 [facility] [id number] [place] [address] 31905- 8425 Jan, Bipolar disorder, unspecified F31.9 and Generalized anxiety disorder F41.1 [facility] [id number] [place] [address] 34191- 5585 14 Dec, 2014 [facility] [id number] [place] [address] 94280- 6239 Dec, Bipolar disorder, unspecified F31.9 and Generalized anxiety disorder F41.1 [facility] [id number] [place] [address] 97449- 3396 Dec, Generalized anxiety disorder F41.1 and Major depressive disorder, recurrent, moderate F33.1 [facility] [id number] [place] [address] 57429- 4015 Oct, Headache 784.0 ; Cough 786.2 ; Vomiting and diarrhea 787.03 and Dysuria 788.1 [facility] [address] 21905- 3667 Aug, [facility] [address] 63443- 1788 Aug, Headache 784.0 and Shortness of breath 786.05 [facility] [id number] [place] [address] 81584- 1792 Aug, [facility] [address] 98009- 0772 Aug, Migraine 346.90 [facility] [id number] [place] [address] 20337- 7981 Jun, [facility] [id number] [place] [address] 95773- 4992 Jun, [facility] [id number] [place] [address] 23672- 9491 May, [facility] [id number] [place] [address] 64301- 0786 May, [facility] [id number] [place] [address] 45435- 6477 May, [facility] [address] 65425- 0642 May, [facility] [id number] [place] [address] 57764- 1287 May, [facility] [address] [place] [address]- 9747 May, [facility] [place] [facility] [address] [id number] [place] [address]- 9252 Apr, 2014 [facility] [place] [facility] [address] [id number] [place] 3216 Apr, 2014 [facility] [place] [facility] [address] [id number] [place] [address]- 1166 Apr, 2014 [facility] [place] [facility] [address] [id number] [place] [address]- 8939 Apr, 2014 [facility] [place] [facility] [address] [id number] [place] 5959 Apr, 2014 [facility] [place] [facility] [address] [id number] [place] [address]- 0393 Mar, [facility] [place] [facility] [address] [id number] [place] [address]- 6516 Mar, [facility] [place] [facility] [address] [id number] [place] [address]- 5211 Mar, [facility] [place] [facility] [address] [id number] [place] [address]- 8044 Mar, [facility] [place] [facility] [address] [facility] [id number] [place] [address]- 9942 Feb, [facility] [place] [facility] [address] [id number] [place] [address]- 7170 19 Feb, 2014 [facility] [place] [facility] [address] [id number] [place] [address]- 8956 18 Feb, 2014 [facility] [place] [facility] [address] [id number] [place] 9267 18 Feb, 2014 [facility] [place] [facility] [address] [id number] [place] 8092 16 Feb, 2014 [facility] [place] [facility] [address] [id number] [place] 5587 Feb, [facility] [place] [facility] [address] [id number] [place] [address]- 4124 Feb, [facility] [place] [facility] [address] [id number] [place] [address]- 3068 Feb, [facility] [place] [facility] [address] [id number] [place] [address]- 9028 Feb, [facility] [place] [facility] [address] [id number] [place] [address]- 6012 Feb, [facility] [place] [facility] [address] [id number] [place] [address]- 2797 Feb, [facility] [place] [facility] [address] [id number] [place] [address]- 8408 Feb, [facility] [place] [facility] [address] [id number] [place] [address]- 2282 Jan, [facility] [place] [facility] [address] [id number] [place] [address]- 7976 Jan, [facility] [place] [facility] [address] [id number] [place] [address]- 1884 Dec, [facility] [place] [facility] [address] [id number] [place] [address]- 7541 Dec, [facility] [place] [facility] [address] [id number] [place] [address]- 7167 Dec, [facility] [place] [facility] [address] [id number] [address]- 4898 Dec, [facility] [place] [facility] [address] [id number] [place] [address]- 3837 Dec, [facility] [place] [facility] [address] [id number] [place] [address]- 4370 Dec, [facility] [place] [facility] [address] [id number] [place] [address]- 9081 Sep, [facility] [place] [facility] [address] [id number] [place] [address]- 7563 Sep, [facility] [place] [facility] [address] [id number] [place] [address]- 0514 Sep, 2013 [facility] [place] [facility] [address] [id number] [place] [address]- 5300 Sep, [facility] [place] [facility] [address] [id number] [place] [address]- 9332 Sep, 2013 [facility] [place] [facility] [address] [id number] [place] [address]- 6493 Sep, 2013 [facility] [place] [facility] [address] [id number] [place] [address]- 3033 Sep, [facility] [place] [facility] [address] [id number] [place] [address]- 5300 Sep, [facility] [place] [facility] [address] [id number] [place] [address]- 2258 Sep, [facility] [place] [facility] [address] [id number] [place] [address]- 7268 Sep, [facility] [place] [facility] [address] [id number] [place] [address]- 4124 Aug, [facility] [place] [facility] [address] [id number] [place] [address]- 1898 Aug, [facility] [place] [facility] [address] [id number] [place] [address]- 3044 Aug, [facility] [place] [facility] [address] [id number] [place] [address]- 5422 Aug, [facility] [place] [facility] [address] [id number] [place] [address]- 3418 Aug, [facility] [place] [facility] [address] [id number] [place] [address]- 3290 Aug, [facility] [place] [facility] [address] [id number] [place] [address]- 7231 Aug, [facility] [place] [facility] [address] [id number] [place] [address]- 0776 Aug, [facility] [place] [facility] [address] [id number] [place] [address]- 3437 Aug, [facility] [place] [facility] [address] [id number] [place] [address]- 2137 Aug, [facility] [place] [facility] [address] [id number] [place] [address]- 8757 Aug, [facility] [place] [facility] [address] [id number] [place] [address]- 2790 Aug, [facility] [place] [facility] [address] [id number] [place] [address]- 2067 Aug, [facility] [place] [facility] [address] [id number] [place] [address]- 4513 July, [facility] [place] [facility] [address] [id number] [place] [address]- 6823 July, [facility] [place] [facility] [address] [id number] [place] [address]- 1908 July, [facility] [place] [facility] [address] [id number] [place] [address]- 7467 July, [facility] [place] [facility] [address] [id number] [place] [address]- 0588 July, [facility] [place] [facility] [address] [id number] [place] [address]- 7836 July, [facility] [place] [facility] [address] [id number] [place] [address]- 5380 July, [facility] [place] [facility] [address] [id number] [place] [address]- 2418 Jun, [facility] [place] [facility] [address] [id number] [place] [address]- 0362 Jun, [facility] [place] [facility] [address] [id number] [place] [address]- 0254 18 Jun, 2013 [facility] [place] [facility] [address] [id number] [place] [address]- 9926 16 Jun, 2013 [facility] [place] [facility] [address] [id number] [place] [address]- 2506 16 Jun, 2013 [facility] [place] [facility] [address] [id number] [place] [address]- 1577 08 Jun, 2013 [facility] [place] [facility] [address] [id number] [place] [address]- 0623 08 Jun, 2013 [facility] [place] [facility] [address] [id number] [place] [address]- 5439 17 May, 2013 [facility] [place] [facility] [address] [id number] [place] [address]- 4988 17 May, 2013 [facility] [place] [facility] [address] [id number] [place] [address]- 9036 14 May, 2013 [facility] [place] [facility] [address] [id number] [place] [address]- 6543 14 May, 2013 [facility] [place] [facility] [address] [id number] [place] [address]- 6657 13 May, 2013 [facility] [place] [facility] [address] [id number] [place] [address]- 0306 13 May, 2013 [facility] [place] [facility] [address] [id number] [place] [address]- 5482 10 May, 2013 [facility] [place] [facility] [address] [id number] [place] [address]- 3483 10 May, 2013 [facility] [place] [facility] [address] [id number] [place] 1846 07 May, 2013 [facility] [place] [facility] [address] [id number] [place] [address]- 4638 Apr, [facility] [place] [facility] [address] [id number] [place] [address]- 8139 Apr, [facility] [place] [facility] [address] [id number] [place] [address]- 8484 18 Apr, 2013 [facility] [place] [facility] [address] [id number] [place] [address]- 7606 Apr, [facility] [place] [facility] [address] [id number] [place] [address]- 3756 Apr, [facility] [place] [facility] [address] [id number] [place] [address]- 8396 Apr, [facility] [place] [facility] [address] [id number] [place] [address]- 6889 Apr, [facility] [place] [facility] [address] [id number] [place] [address]- 8933 Apr, [facility] [place] [facility] [address] [id number] [place] [address]- 0786 Apr, [facility] [place] [facility] [address] [id number] [place] [address]- 9346 Apr, [facility] [place] [facility] [address] [id number] [place] [address]- 8160 Mar, [facility] [place] [facility] [address] [facility] [id number] [place] [address]- 9519 Mar, [facility] [place] [facility] [address] [id number] [place] [address]- 4556 Mar, [facility] [place] [facility] [address] [id number] [place] [address]- 0928 Mar, [facility] [place] [facility] [address] [id number] [place] [address]- 5690 Mar, [facility] [place] [facility] [address] [id number] [place] [address]- 3438 Mar, [facility] [place] [facility] [address] [id number] [place] [address]- 2254 Mar, [facility] [place] [facility] [address] [id number], [place] [address]- 4396 Mar, [facility] [place] [facility] [address] [id number] [place] [address]- 4144 10 Feb, 2013 [facility] [place] [facility] [address] [id number] [place] [address]- 8939 Feb, [facility] [place] [facility] [address] [id number] [place] [address]- 7600 Jan, [facility] [place] [facility] [address] [id number], [place] [address]- 9008 Jan, [facility] [place] [facility] [address] [id number] [place] [address]- 5029 Jan, [facility] [place] [facility] [address] [id number] [place] [address]- 5753 15 Jan, 2013 [facility] [place] [facility] [address] [id number], [place] [address]- 6871 Jan, [facility] [place] [facility] [address] [id number], [place] [address]- 9559 Jan, [facility] [place] [facility] [address] [id number], [place] [address]- 5999 05 Jan, 2013 [facility] [place] [facility] [address] [id number], [place] [address]- 2092 05 Jan, 2013 [facility] [place] [facility] [address] [id number], [place] [address]- 8327 13 Dec, 2012 [facility] [place] [facility] [address] [id number], [place] [address]- 8402 10 Dec, 2012 [facility] [place] [facility] [address] [id number], [place] [address]- 0294 10 Dec, 2012 [facility] [place] [facility] [address] [id number], [place] [address]- 5740 20 Nov, 2012 [facility] [place] [facility] [address] [id number], [place] [address]- 3083 13 Nov, 2012 [facility] [place] [facility] [address] [id number] [place] [address]- 9411 12 Nov, 2012 [facility] [address] [id number] [place] [address]- 2868 Nov, [facility] [address] [id number] [place] [address]- 2656 Nov, [facility] [address] [id number] [place] [address]- 6529 Nov, [facility] [address] [id number] [place] [address]- 9706 Oct, [facility] [address] [id number] [place] [address]- 3177 Oct, [facility] [address] [id number] [place] [address]- 6772 Sep, [facility] [address] [id number] [place] [address]- 9306 Sep, [facility] [address] [id number] [place] [address]- 9967 Sep, [facility] [address] [id number] [place] [address]- 0924 Sep, [facility] [address] [id number] [place] [address]- 3059 Sep, [facility] [place] [facility] [address] [id number] [place] [address]- 8232 Sep, [facility] [address] [id number] [place] [address]- 3083 Sep, [facility] [place] [facility] [address] [id number] [place] [address]- 2447 Aug, [facility] [place] [facility] [address] [id number] [place] [address]- 9680 Aug, [facility] [place] [facility] [address] [id number] [place] [address]- 1153 Aug, [facility] [address] [id number] [place] [address]- 1206 Aug, [facility] [place] [facility] [address] [id number] [place] [address]- 4581 Aug, [facility] [place] [facility] [address] [id number] [place] [address]- 4022 Aug, [facility] [place] [facility] [address] [id number] [place] [address]- 2660 July, [facility] [address] [id number] [place] [address]- 7991 July, [facility] [place] [facility] [address] [id number] [place] [address]- 2267 July, [facility] [address] [id number] [place] [address]- 7414 July, [facility] [address] [id number] [place] [address]- 5664 July, [facility] [place] [facility] [address] [id number] [place] [address]- 4549 July, [facility] [place] [facility] [address] [id number] [place] [address]- 9486 Jun, [facility] [place] [facility] [address] [id number] [place] [address]- 9510 Jun, [facility] [place] [facility] [address] [id number], [place] [address]- 8274 15 Jun, 2012 [facility] [place] [facility] [address] [id number] [place] [address]- 0782 Jun, [facility] [place] [facility] [address] [id number] [place] [address]- 0473 Jun, [facility] [place] [facility] [address] [id number] [place] [address]- 4932 Jun, [facility] [place] [facility] [address] [id number] [place] [address]- 0965 Jun, [facility] [address] [id number] [place] [address] 2546 May, [facility] [place] [facility] [address] [id number] [place] [address] 2546 May, [facility] [address] [id number] [place] [address]- 9726 26 Apr, 2012 [facility] [address] [id number] [place] [address] 2542 Apr, [facility] [address] [id number] [place] [address] Apr, [facility] [place] [facility] [address] [id number] [place] [address] 2546 Apr, [facility] [address] [id number] [place] [address] 12 Apr, 2012 [facility] [address] [id number] [place] [address] 2548 08 Apr, 2012 [facility] [address] [id number] [place] [address] 07 Apr, 2012 [facility] [address] [id number] [place] [address] 07 Apr, 2012 [facility] [place] [facility] [address] [id number] [place] [address]46 06 Apr, 2012 [facility] [place] [facility] [address] [id number] [place] [address] 2542 Apr, [facility] [place] [facility] [address] [id number] [place] [address] 2546 Apr, [facility] [place] [facility] [address] [id number] [place] [address] 2546 Mar, [facility] [place] [facility] [address] [id number] [place] [address] Mar, [facility] [address] [id number] [place] [address] 97[address] Mar, [facility] [address] [id number] [place] [address] Mar, [facility] [address] [id number] [place] [address] Mar, [facility] [address] [id number] [place] [address] Mar, [facility] [address] [id number] [place] [address] Mar, [facility] [address] [id number] [place] [address] Mar, [facility] [address] [id number] [place] [address] Mar, [facility] [address] [id number] [place] [address] 98[address] Mar, [facility] [address] [id number] [place] [address] Mar, [facility] [address] [id number] [address] Mar, [facility] [address] [id number] [place] [address] Mar, [facility] [address] [id number], [place] [address] Feb, [facility] [place] [facility] [address] [id number] [place] [address] Feb, [facility] [place] [facility] [address] [id number] [place] [address] 2587 Feb, [facility] [place] [facility] [address] [id number] [place] [address] 67[address] Feb, [facility] [place] [facility] [address] [id number] [place] [address] 11 Feb, 2012 [facility] [place] [facility] [address] [id number] [place] [address]246 11 Feb, 2012 [facility] [place] [facility] [address] [id number] [place] [address] Feb, [facility] [place] [facility] [address] [id number] [place] [address]676 Feb, [facility] [place] [facility] [address] [id number] [place] [address] Feb, [facility] [place] [facility] [address] [id number] [place] [address] Feb, [facility] [place] [facility] [address] [id number] [place] [address] Feb, [facility] [place] [facility] [address] [id number] [place] [address] Feb, [facility] [place] [facility] [address] [id number] [place] [address]757 Feb, [facility] [place] [facility] [address] [id number] [place] [address] 67[address] Feb, [facility] [place] [facility] [address] [facility] [id number] [place] [address] Feb, [facility] [place] [facility] [address] [id number] [place] [address] Jan, [facility] [place] [facility] [address] [id number] [place] [address] Jan, [facility] [place] [facility] [address] [id number] [place] [address] Jan, [facility] [place] [facility] [address] [facility] [id number] [place] [address] Jan, [facility] [place] [facility] [address] [facility] [id number] [place] [address] 4738 29 Dec, 2011 [facility] [place] [facility] [address] [id number] [place] [address]47 29 Dec, 2011 [facility] [place] [facility] [address] [id number] [place] [address]- [address] Dec, [facility] [place] [facility] [address] [id number] [place] [address] Dec, 2011 [facility] [place] [facility] [address] [id number] [place] [address]- [address]471 Dec, [facility] [place] [facility] [address] [id number] [place] [address]- [address] Dec, [facility] [place] [facility] [address] [id number] [place] [address]- [address]761 Dec, [facility] [place] [facility] [address] [id number] [place] [address]- 2408 Dec, [facility] [place] [facility] [address] [id number] [place] [address]704 Dec, [facility] [place] [facility] [address] [id number] [place] [address]- 8749 Dec, [facility] [place] [facility] [address] [id number] [place] [address] Dec, [facility] [place] [facility] [address] [id number] [place] [address]573 25 Nov, 2011 [facility] [place] [facility] [address] [id number] [place] [address]- [address] 24 Sep, 2011 [facility] [place] [facility] [address] [id number] [place] [address]- 9871 20 Sep, 2011 [facility] [place] [facility] [address] [id number] [place] [address]- 2854 19 Sep, 2011 [facility] [place] [facility] [address] [id number] [place] [address]- [address]271 17 Sep, 2011 [facility] [place] [facility] [address] [id number] [place] [address]- [address] 16 Sep, 2011 [facility] [place] [facility] [address] [id number] [place] [address]- [address]79 14 Sep, 2011 [facility] [place] [facility] [address] [id number] [place] [address]- 0646 13 Sep, 2011 [facility] [place] [facility] [address] [id number] [place] [address] 12 Sep, 2011 [facility] [place] [facility] [address] [id number] [place] [address] 07 Sep, 2011 [facility] [place] [facility] [address] [id number] [place] [address] 06 Sep, 2011 [facility] [place] [facility] [address] [id number] [place] [address] 7947 06 Sep, 2011 [facility] [place] [facility] [address] [id number] [place] [address]79 05 Nov, 2011 [facility] [place] [facility] [address] [id number] [place] [address] 29 Oct, 2011 [facility] [place] [facility] [address] [id number] [place] [address] 8548 29 Oct, 2011 [facility] [place] [facility] [address] [id number] [place] [address] 384[address] 28 Oct, 2011 [facility] [place] [facility] [address] [id number] [place] [address] 28 Oct, 2011 [facility] [place] [facility] [address] [id number] [place] [address]45 23 Oct, 2011 [facility] [place] [facility] [address] [id number] [place] [address]857 Oct, [facility] [place] [facility] [address] [id number] [place] [address] 3285 Oct, [facility] [place] [facility] [address] [id number] [place] [address] 1058 16 Oct, 2011 [facility] [place] [facility] [address] [id number] [place] [address] 15 Oct, 2011 [facility] [address] [id number] [place] [address] Oct, [facility] [address] [id number] [place] [address] 99[address] Oct, [facility] [address] [id number] [place] [address] 0926 Sep, [facility] [address] [id number] [place] [address] 1672 Sep, [facility] [address] [id number] [place] [address] 267[address] Sep, [facility] [address] [id number] [place] [address] 5612 Sep, [facility] [address] [id number] [place] [address]- 3515 Sep, [facility] [address] [id number] [place] [address] 1569 Sep, [facility] [address] [id number] [place] [address] 9940 Aug, [facility] [address] [id number] [place] [address] 8511 July, [facility] [address] [id number] [place] [address] 4207 July, [facility] [address] [id number] [place] [address] 3610 Jun, [facility] [place] [facility] [address] [id number] [place] [address] 6632 Jun, [facility] [place] [facility] [address] [id number] [place] [address] 8444 Jun, [facility] [address] [id number] [place] [address]- 0782 Jun, [facility] [place] [facility] [address] [id number] [place] [address]- 8667 10 Jun, 2011 [facility] [place] [facility] [address] [id number] [place] [address]- 8796 10 Jun, 2011 [facility] [place] [facility] [address] [id number] [place] [address]- 3667 09 Jun, 2011 [facility] [place] [facility] [address] [id number] [place] [address]- 2791 08 Jun, 2011 [facility] [place] [facility] [address] [id number] [place] [address]- 2211 03 Jun, 2011 [facility] [place] [facility] [address] [id number] [place] [address]- 5535 Jun, [facility] [place] [facility] [address] [id number] [place] [address] 6853 Jun, [facility] [place] [facility] [address] [id number] [place] [address] 0073 May, [facility] [place] [facility] [address] [id number] [place] [address]- 0670 16 May, 2011 [facility] [place] [facility] [address] [id number] [place] [address]- 9358 14 May, 2011 [facility] [place] [facility] [address] [id number] [place] [address]- 1717 06 May, 2011 [facility] [place] [facility] [address] [id number] [place] [address]- 1763 Apr, [facility] [place] [facility] [address] [id number] [place] [address]- 0538 Apr, [facility] [place] [facility] [address] [id number] [place] [address]- 3145 27 Apr, 2011 [facility] [place] [facility] [address] [id number] [place] [address]- 5231 23 Apr, 2011 [facility] [place] [facility] [address] [id number] [place] [address]- 9153 Apr, [facility] [address] [id number] [place] [address] 8156 Apr, [facility] [address] [id number] [place] [address]- 3646 Apr, [facility] [address] [id number] [place] [address] 9241 Apr, [facility] [address] [id number] [place] [address]- 5500 Mar, [facility] [address] [id number] [place] [address]- 9669 Mar, [facility] [address] [id number] [place] [address]- 3958 Mar, [facility] [address] [id number] [place] [address]- 7830 Mar, [facility] [address] [id number] [place] [address]- 9589 Mar, [facility] [address] [id number] [place] [address]- 7582 Mar, [facility] [address] [id number] [place] [address]- 1199 Mar, [facility] [address] [id number] [place] [address]- 3569 Mar, [facility] [address] [id number] [place] [address]- 1005 Mar, [facility] [place] [facility] [address] [id number] [place] [address]- 0320 Mar, [facility] [place] [facility] [address] [id number] [place] [address]- 2494 Mar, [facility] [address] [id number] [place] [address]- 5206 Mar, [facility] [place] [facility] [address] [id number] [place] [address]- 2222 Mar, [facility] [place] [facility] [address] [id number] [place] [address]- 0389 Mar, [facility] [place] [facility] [address] [id number] [place] [address]- 2376 Mar, [facility] [place] [facility] [address] [id number] [place] [address]- 8576 Mar, [facility] [place] [facility] [address] [id number] [place] [address]- 6033 Feb, [facility] [place] [facility] [address] [id number] [place] [address]- 4537 Feb, [facility] [place] [facility] [address] [id number] [place] [address]- 0404 Feb, [facility] [place] [facility] [address] [id number] [place] [address]- 9461 Jan, [facility] [place] [facility] [address] [id number] [place] [address]- 1441 Jan, [facility] [place] [facility] [address] [id number] [place] [address]- 9870 Jan, [facility] [place] [facility] [address] [id number] [place] [address]- 6343 Dec, [facility] [place] [facility] [address] [id number] [address]- 0926 Dec, [facility] [place] [facility] [address] [id number] [place] [address]- 8826 Nov, [facility] [place] [facility] [address] [id number] [place] [address]- 7637 Oct, [facility] [place] [facility] [address] [id number] [place] [address]- 2473 Oct, [facility] [place] [facility] [address] [id number] [address]46 Oct, [facility] [address] [facility] [id number] [address]46 Sep, [facility] [address] [facility] [id number] [address]- 2546 Apr, [facility] [address] [facility] [id number], [place] [address]- [address]46 Feb, [place] [address] [facility] [id number] [address]- [address]46 Jan, IMMUNIZATIONS No Known Immunizations SOCIAL HISTORY Never Assessed REASON FOR VISIT Breathing problems, PT was seen in the ER Thursday where she recevied a steriod injection allong with a breathing treatment and some prednison-Mary Esther MA PLAN OF CARE Activity Details Follow Up prn Reason: VITAL SIGNS Height 70 in 2017-08-25 Weight 218.7 lbs 2017-08-25 Temperature 98.0 degrees Fahrenheit 2017-08-25 Heart Rate 96 bpm 2017-08-25 Respiratory Rate 22 2017-08-25 Oximetry w/ oxygen @ 3l:98 % 2017-08-25 BMI 31.38 kg/m2 2017-08-25 Blood pressure systolic 128 mmHg 2017-08-25 Blood pressure diastolic 86 mmHg 2017-08-25 MEDICATIONS Medication Instructions Dosage Frequency Start Date End Date Duration Status Sucralfate 1 GM Orally AC and HS 1 tablet at bedtime on an empty stomach before meals Not-Taking Oxygen 2Lt by inhalation route 24 hours Not-Taking Advair Diskus 250-50 MCG/DOSE Inhalation Twice a day 1 puff 12h Dec, 90 days Active Spiriva HandiHaler 18 MCG Inhalation Once a day 1 capsule 24h 90 days Active Loperamide HCl 2 MG Orally Four times a day 1 capsule as needed 6h Not-Taking Glimepiride 1 MG Orally Once a day on the days you are taking the prednsone 1 tablet with breakfast or the first main meal of the day Mar, 30 day(s) Active Cymbalta 60 mg Orally Once a day 2 capsule 24h 11 Feb, 2015 90 days Not-Taking Multivitamin Adult - Orally Once a day 24h Not-Taking Pantoprazole Sodium 40 mg Orally twice a day 1 tablet 12h 28 Apr, 2017 30 day(s) Not-Taking Topamax 100 mg Orally Twice a day 1 tablet 12h 30 Not-Taking Neurontin 300 MG Orally Three times a day-repository 1 capsule Dec, Not-Taking Metoprolol Tartrate 25 MG Orally 2 times a day 1/2 tablet 12h Active Metamucil 43 % Orally Once a day 3.4 GM 24h May, Not-Taking Ventolin HFA 108 (90 Base) MCG/ACT Inhalation every 4 hours 2 puffs as needed for short of breath or wheeze 4h 90 days Active PredniSONE 10 mg Orally Once a day 6 tablts daily and decrease by 1 tab daily 24h Aug, Active Ipratropium-Albuterol 0.5-2.5 (3) MG/3ML Inhalation Four times a day 3 ml as needed for Shortness of breath 6h 28 days Active Trulicity 0.75 MG/0.5ML Subcutaneous once weekly Inject 0.5 ml Jun, 90 days Active Abilify 15 mg Orally Once a day 1 tablet 24h Jun, 90 days Not- Taking RESULTS No Results PROCEDURES No Known procedures [...] 2/2 Benzos OD, pneumonia MRSA, [facility], Hypokalemia-- [facility] 12/20/2015 Hospitalization History COPD exacerbation, Asthma-[facility] 09/21/16 Hospitalization History COPD-[facility] 12/30/2016 Hospitalization [facility] around 2006 or so[facility] Hospitalization History for COPD x2 Mar 2017 Hospitalization History Upper GI bleed at apr 2017 Hospitalization History [facility]- COPD Exacerbation, diarrhea 05/23/2017 Hospitalization History COPD exacerbation-[facility] 06/13/17 Hospitalization History CHF 09/09/2017
--- OUTSIDE RECORDS SUMMARY | 2017-11-19 13:26 | XMS REPORT ---
Author Author ALIZA CARTER [facility] Address [address] [place] [address] Care Team Providers Care Agency Service Coordinator Name Role Phone ALIZA CARTER Unavailable PROBLEMS Type Condition ICD9-CM Code EVK59-CF Code Onset Dates Condition Status SNOMED Code Problem Bipolar disorder with depression F31.30 Active 29414317 Problem Other emphysema J43.8 Active 97767868 Problem Migraine without aura and without status migrainosus, not intractable G43.009 Active 642799212 Problem Anxiety F41.9 Active 19637906 Problem COPD with exacerbation J44.1 Active 626325305 Problem Methamphetamine use disorder, moderate, 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 Active 31393998 Problem Chronic bronchitis, unspecified chronic bronchitis type J42 Active 17944866 Problem Intractable cyclical vomiting with nausea G43.A1 Active 87601548 Problem Diabetes E11.9 Active 597179845 Problem 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 Active Problem Tobacco abuse Z72.0 Active 17558582 Problem Examination of eyes and vision V72.0 Active 627855256 Problem Chronic constipation K59.09 Active 939650310 Problem Memory loss R41.3 Active 54075346 Problem Migraine G43.909 Active 55444208 Problem Bipolar disorder, unspecified F31.9 Active 39577618 Problem TMJ (sprain of temporomandibular joint) S03.4XXA Active 90932862 Problem Generalized anxiety disorder F41.1 Active 03876867 ALLERGIES No Information ENCOUNTERS Encounter Location Date Diagnosis [facility] [address], [place] [address] Oct, [facility] [address], [place] [address] Oct, [facility] [address], [place] [address] Oct, Thrush B37.0 [facility] [address], [place] [address] Sep, COPD with exacerbation J44.1 and Anxiety F41.9 [facility] [address], [place] [address] Sep, [facility] [id number] [place] [address] 41295- 3774 Sep, [facility] [address], [place] [address] Sep, [facility] [id number] [place] [address] 64371- 1544 Sep, Acute congestive heart failure, unspecified heart failure type I50.9 and Anxiety disorder, unspecified F41.9 [facility] [id number] [address] Sep, Heart failure, unspecified HF chronicity, unspecified heart failure type I50.9 [facility] [address], [place] [address] Sep, [facility] [address], [place] [address] 9[address] Aug, Chronic obstructive pulmonary disease with acute exacerbation J44.1 [facility] [address], [place] [address] Aug, [facility] [address], [place] [address] 9733 Aug, [facility] [address], [place] [address] 7971 July, [facility] [address], [place] [address] 47[address] July, [facility] [address], [place] [address] 00[address] July, Diabetes E11.9 and Chronic obstructive pulmonary disease with acute exacerbation J44.1 [facility] [id number] [place] [address] 84800- 1411 Jun, Chronic obstructive pulmonary disease with acute exacerbation J44.1 ; Diabetes E11.9 and Tobacco abuse Z72.0 [facility] [id number] [place] [address] 27228- 3727 Jun, [facility] [id number] [place] [address] 91136- 8220 Jun, [facility] [id number] [place] [address] 53669- 5584 May, [facility] [id number] [place] [address] 89319- 8913 May, [facility] [id number] [place] [address] 04002 -4674 17 May, 2017 [facility] [id number] [place] [address] 93574- 2874 16 May, 2017 [facility] [id number] [place] [address] 90375- 4138 15 May, 2017 [facility] [id number] [place] [address] 88811- 3650 14 May, 2017 Diarrhea, unspecified type R19.7 and Intractable cyclical vomiting with nausea G43.A1 [facility] [id number] [place] [address] 24920- 0877 May, [facility] [id number] [place] [address] 90258- 0854 05 May, 2017 [facility] [id number] [place] [address] 86721- 7044 28 Apr, 2017 COPD exacerbation J44.1 ; Esophageal candidiasis B37.81 ; Other acute gastritis with hemorrhage K29.01 and Acute posthemorrhagic anemia D62 [facility] [id number] [place] [address] 19770- 9858 Apr, Viral illness B34.9 and COPD exacerbation J44.1 [facility] [id number] [place] [address] 86067 -3756 Apr, Shortness of breath R06.02 and Pneumonia of both lower lobes due to infectious organism J18.9 [facility] [id number] [place] [address] 16517 -4401 Mar, COPD with acute exacerbation J44.1 [facility] [id number] [place] [address] 94974- 8591 Mar, Chronic obstructive pulmonary disease with acute exacerbation J44.1 and Diabetes E11.9 [facility] [address] 34194- 4981 Mar, [facility] [address] 96371- 6449 Mar, [facility] [id number] [place] [address] 63796 -9727 Mar, COPD exacerbation J44.1 [facility] [id number] [place] [address] 44908- 1166 Mar, [facility] [id number] [place] [address] 70722- 5294 Mar, Migraine G43.909 ; Hypokalemia E87.6 and Type 2 diabetes mellitus without complications E11.9 [facility] [id number] [place] [address] 33066- 9704 Feb, [facility] [id number] [place] [address] 31362- 6277 Feb, [facility] [id number] [place] [address] 70925- 6693 Feb, Methamphetamine use disorder, moderate, 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 ; Major depressive disorder, recurrent, moderate F33.1 ; Anxiety disorder, unspecified F41.9 and Tobacco abuse Z72.0 [facility] [address] [place] [address] 60199- 9968 30 Jan, 2017 Major depressive disorder, recurrent, moderate F33.1 [facility] [id number] [place] [address] 98939- 3085 16 Jan, 2017 [facility] [id number] [place] [address] 58568- 9994 14 Jan, 2017 [facility] [address] 14557- 3552 Jan, Major depressive disorder, recurrent, moderate F33.1 [facility] [id number] [place] [address] 367846- 5950 Jan, Major depressive disorder, recurrent, moderate F33.1 ; Anxiety disorder, unspecified F41.9 ; Methamphetamine use disorder, moderate, 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 and Tobacco abuse Z72.0 [facility] [id number] [place] [address] 44561- 1792 07 Jan, 2017 [facility] [id number] [place] [address] 84012- 6479 06 Jan, 2017 Chronic obstructive pulmonary disease with acute exacerbation J44.1 and Diabetes E11.9 [facility] [id number] [place] [address] 69129- 2633 06 Jan, 2017 [facility] [id number] [place] [address] 66112- 1889 Jan, [facility] [id number] [place] [address] 30936- 6190 Dec, Acute respiratory failure with hypoxia J96.01 ; Chronic bronchitis, unspecified chronic bronchitis type J42 and Tobacco use Z72.0 [facility] [address] [place] [address] 44363- 0792 Dec, [facility] [address] [place] [address] [id number] Nov, Dental caries K02.9 and Dental examination Z01.20 [facility] [address], [place] [address]- 6948 Nov, Major depressive disorder, recurrent, moderate F33.1 ; Anxiety disorder, unspecified F41.9 and 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 [facility] [address] [id number] Oct, Dental examination Z01.20 [facility] [id number] [place] [address] 46800- 0690 Oct, [facility] [id number] [place] [address] 10331- 2159 Oct, Diabetes E11.9 and Thrush B37.0 [facility] [id number] [place] [address] 22989- 6842 Oct, [facility] [id number] [place] [address] 83266- 0441 Oct, [facility] [id number] [place] [address] 26890- 0100 Oct, [facility] [id number] [place] [address] 06122- 0453 Sep, Major depressive disorder, recurrent, moderate F33.1 ; Anxiety disorder, unspecified F41.9 and Bipolar disorder, unspecified F31.9 [facility] [address] [place] [address] 76733- 3345 Sep, Acute exacerbation of chronic obstructive pulmonary disease (COPD) J44.1 and Migraine G43.909 [facility] [address] [place] [address] 81905- 8932 Sep, [facility] [id number] [place] [address] [id number] Sep, [facility] [address], [place] [address]- 9568 Sep, Acute exacerbation of chronic obstructive pulmonary disease (COPD) J44.1 [facility] [address], [place] [address]3563 15 Sep, 2016 Acute exacerbation of chronic obstructive pulmonary disease (COPD) J44.1 [facility] [id number] [place] [address] 94442- 2751 Aug, [facility] [id number] [place] [address] 81634- 4037 20 Aug, 2016 Major depressive disorder, recurrent, moderate F33.1 ; Anxiety disorder, unspecified F41.9 and 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 [facility] [id number] [place] [address] 55732- 0587 19 Aug, 2016 Wheezing R06.2 ; Non morbid obesity due to excess calories E66.09 ; Migraine without aura and without status migrainosus, not intractable G43.009 and Tobacco abuse Z72.0 [facility] [id number] [place] [address] [phone] 14 Aug, 2016 Encounter for dental examination Z01.20 [facility] [id number] [place] [address] 96996- 1463 02 Aug, 2016 Major depressive disorder, recurrent, moderate F33.1 ; Anxiety disorder, unspecified F41.9 and 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 [facility] [address], [place] [address]- 0554 July, [facility] [id number] [place] [address] 07288- 0243 July, [facility] [address] [place] [address] 52362- 6446 July, [facility] [id number] [place] [address] 06313- 8342 July, Diabetes E11.9 [facility] [address] [place] [address] 35209- 7107 Jun, Major depressive disorder, recurrent, moderate F33.1 [facility] [address] [place] [address] 80555- 7258 Jun, Major depressive disorder, recurrent, moderate F33.1 ; 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 ; Generalized anxiety disorder F41.1 and Bipolar disorder, unspecified F31.9 [facility] [address] 10428- 4313 Jun, Diabetes E11.9 ; Migraine G43.909 ; Thrush B37.0 and Wheezing R06.2 [facility] [id number] [place] [address] [id number] Jun, Dental examination Z01.20 [facility] [address] 19009- 9839 Jun, [facility] [address] 82509- 5807 Jun, Major depressive disorder, recurrent, moderate F33.1 ; Anxiety disorder, unspecified F41.9 and 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 [facility] [id number] [place] [address] 30956- 2775 Jun, [facility] [id number] [place] [address] 48605- 1406 Jun, Wheezing R06.2 [facility] [address] [id number] Jun, Dental caries K02.9 [facility] [address] 11692- 6787 Jun, Major depressive disorder, recurrent, moderate F33.1 ; Anxiety disorder, unspecified F41.9 and Other stimulant 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 [facility] [address] [place] [address] 24360- 3959 Jun, RLQ abdominal pain R10.31 ; Diabetes E11.9 ; Obesity, unspecified obesity severity, unspecified obesity type E66.9 ; Wheezing R06.2 and Abnormal urinalysis R82.90 [facility] [address] [place] [address] 56584- 6072 May, [facility] [id number] [place] [address] 04370- 5563 May, Well woman exam Z01.419 ; Breast cancer screening Z12.39 ; Cervical cancer screening Z12.4 ; Urinary frequency R35.0 ; Edema, unspecified type R60.9 and Chronic constipation K59.09 [facility] [id number] [place] [address] 36927- 8654 May, Major depressive disorder, recurrent, moderate F33.1 ; Anxiety disorder, unspecified F41.9 and 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 [facility] [id number] [place] [address] [id number] May, Dental examination Z01.20 [facility] [id number] [place] [address] 02276- 4133 May, [facility] [id number] [place] [address] 35878- 0957 May, [facility] [id number] [place] [address] 56020- 1930 May, Chronic constipation K59.09 [facility] [id number] [place] [address] 89275- 2768 Apr, [facility] [id number] [place] [address] 54769- 3353 Apr, Major depressive disorder, recurrent, moderate F33.1 ; Anxiety disorder, unspecified F41.9 and 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 [facility] [id number] [place] [address] 63456- 8259 Apr, [facility] [id number] [place] [address] 19426- 1628 Mar, Major depressive disorder, recurrent, moderate F33.1 [facility] [address] [place] [address] 65170- 8569 Mar, Major depressive disorder, recurrent, moderate F33.1 ; Generalized anxiety disorder F41.1 and Bipolar I disorder, most recent episode depressed with anxious distress F31.30 [facility] [address] [place] [address] 12522- 0500 Mar, Diabetes E11.9 ; Non morbid obesity due to excess calories E66.09 ; Breast cancer screening Z12.39 and Encounter for immunization Z23 [facility] [address] [place] [address] 22844- 0379 Mar, Major depressive disorder, recurrent, moderate F33.1 ; Anxiety disorder, unspecified F41.9 and 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 [place] [id number] [place] [address] 87917- 0513 Mar, [facility] [address] [place] [address] 38271- 9436 Feb, Major depressive disorder, recurrent, moderate F33.1 ; Anxiety disorder, unspecified F41.9 and 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 [facility] [address] [place] [address] 19296- 8922 Feb, [facility] [id number] [place] [address] 26647- 7498 Feb, [facility] [id number] [place] [address] 04167- 3777 Jan, Major depressive disorder, recurrent, moderate F33.1 ; Generalized anxiety disorder F41.1 and Bipolar disorder, current episode depressed, severe, without psychotic features F31.[address] [place] [address] 55792- 7059 18 Jan, 2016 Major depressive disorder, recurrent, moderate F33.1 ; Anxiety disorder, unspecified F41.9 and 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 [facility] [address], [place] [address]- 9741 16 Jan, 2016 Bronchitis J40 [facility] [address] [place] [address] 15548- 4288 15 Jan, 2016 [facility] [address] [place] [address] 94641- 5789 Jan, [facility] [address] [place] [address] 41059- 8109 Jan, Elbow injury, right, initial encounter S59.901A ; Multiple contusions T14.8 and Cervical strain, acute, initial encounter S16.1XXA [facility] [address] [place] [address] 40781- 4298 Dec, Major depressive disorder, recurrent, moderate F33.1 ; Generalized anxiety disorder F41.1 and Bipolar disorder with depression F31.30 [facility] [address] [place] [address] 31410- 5918 Dec, [facility] [address] [place] [address] 78030- 3582 Dec, [facility] [address] [place] [address] 87279- 6409 Dec, [facility] [address] [place] [address] 75781- 4583 Dec, [facility] [address] [place] [address] 92034- 1656 Dec, Yeast infection B37.9 [facility] [address] [place] [address] 27054- 4497 Dec, Pneumonia of both lungs due to methicillin resistant Staphylococcus aureus (MRSA), unspecified part of lung J15.212 and Benzodiazepine overdose, accidental or unintentional, subsequent encounter T42.4X1D [facility] [address] [place] [address] 41977- 7746 Dec, [facility] [id number] [place] [address] 34863- 7581 Dec, [facility] [address] 91046- 4057 Dec, Knee pain, left M25.562 and Edema, unspecified type R60.9 [facility] [id number] [place] [address] 52067- 4070 Dec, [facility] [id number] [place] [address] 46198- 0027 Dec, Anxiety disorder, unspecified F41.9 and Bipolar disorder, unspecified F31.9 [facility] [id number] [place] [address] 04783- 5679 Nov, Major depressive disorder, recurrent, moderate F33.1 ; Anxiety disorder, unspecified F41.9 and 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 [facility] [address] [place] [address] 93111- 5031 Nov, [facility] [id number] [place] [address] 71103- 2219 Nov, Migraine without aura and without status migrainosus, not intractable G43.009 [facility] [address] [place] [address] 02248- 1265 Nov, Migraine G43.909 [facility] [id number] [place] [address] 13026- 5054 Nov, [facility] [address] [place] [address] 86089- 9396 Nov, Major depressive disorder, recurrent, moderate F33.1 ; Anxiety disorder, unspecified F41.9 and 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 [facility] [id number] [place] [address] 20821- 9585 Oct, Chronic constipation K59.09 and Obesity, unspecified obesity severity, unspecified obesity type E66.9 [facility] [address] [place] [address] 38216- 0338 Oct, Obesity, unspecified obesity severity, unspecified obesity type E66.9 ; Chronic constipation K59.09 and Anxiety disorder, unspecified F41.9 [facility] [id number] [place] [address] 70584- 3741 Oct, [facility] [address] [place] [address] 95369- 5164 Sep, Diabetes E11.9 ; Edema, unspecified type R60.9 ; Varicose vein of leg I83.90 and Obesity, unspecified obesity severity, unspecified obesity type E66.9 [facility] [address] [place] [address] 04378- 3651 Sep, Edema, unspecified type R60.9 ; Diabetes E11.9 and Knee pain , left M25.562 [facility] [address] [place] [address] 17428- 6516 Sep, [facility] [id number] [place] [address] 42610- 2335 Sep, [facility] [id number] [place] [address] 12511- 5113 Sep, Major depressive disorder, recurrent, moderate F33.1 ; Generalized anxiety disorder F41.1 and Bipolar disorder, unspecified F31.9 [facility] [id number] [place] [address] 43586- 1975 Aug, Chondromalacia of left knee M94.262 [facility] [address] [place] [address] 66905- 1913 Aug, Major depressive disorder, recurrent, moderate F33.1 ; Anxiety disorder, unspecified F41.9 and 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 [facility] [id number] [place] [address] 75884- 4158 Aug, [facility] [address] [place] [address] 17059- 9374 Aug, Osteoarthritis of left knee M17.9 [facility] [id number] [place] [address] 48894- 6948 Aug, [facility] [id number] [place] [address] 77847- 5948 July, Major depressive disorder, recurrent, moderate F33.1 ; Anxiety disorder, unspecified F41.9 and 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 [facility] [id number] [place] [address] 21234- 2876 July, [facility] [id number] [place] [address] 57166- 7639 July, Chronic constipation K59.09 [facility] [id number] [place] [address] 27227- 2971 Jun, [facility] [id number] [place] [address] 65888- 8764 Jun, [facility] [address] [id number] [place] [address] 41009- 5711 14 Jun, 2015 Osteoarthritis of left knee M17.9 [facility] [id number] [place] [address] 34080- 8022 Jun, [facility] [id number] [place] [address] 44298- 8752 Jun, Generalized anxiety disorder F41.1 ; Bipolar disorder, unspecified F31.9 and Major depressive disorder, recurrent, moderate F33.1 [facility] [id number] [place] [address] 96707- 9316 07 Jun, 2015 Migraine G43.909 [facility] [id number] [place] [address] 05672- 6021 07 Jun, 2015 Left knee pain M25.562 ; Chronic constipation K59.09 ; Dry mouth R68.2 ; Yeast vaginitis B37.3 and Memory loss R41.3 [facility] [id number] [place] [address] 12687- 5805 Jun, [facility] [id number] [place] [address] 61501- 4113 May, [facility] [id number] [place] [address] 83750- 0724 May, [facility] [address] 23933- 0571 May, [facility] [id number] [place] [address] 17561- 1845 May, [facility] [id number] [place] [address] 61778- 8873 May, Acute bronchitis with COPD J44.0 ; Knee pain, left M25.562 and Encounter for tobacco use cessation counseling Z71.6 [facility] [id number] [place] [address] 10502- 5622 May, [facility] [id number] [place] [address] 98303- 0153 Apr, Diabetes E11.9 ; TMJ (sprain of temporomandibular joint) S03.4XXA ; Tobacco abuse Z72.0 ; Migraine G43.909 and Anxiety F41.9 [facility] [id number] [place] [address] 76991- 2464 Apr, Generalized anxiety disorder F41.1 and Bipolar disorder, unspecified F31.9 [facility] [id number] [place] [address] 99597- 4249 Apr, Major depressive disorder, recurrent, moderate F33.1 ; Anxiety disorder, unspecified F41.9 and 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 [facility] [id number] [place] [address] 37994- 6609 Apr, [facility] [address] [address] 3624 Mar, [facility] [id number] [place] [address] 49241- 3938 Feb, [facility] [id number] [place] [address] 69012- 3024 Feb, Major depressive disorder, recurrent, moderate F33.1 ; Anxiety disorder, unspecified F41.9 and 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 [facility] [id number] [place] [address] 97304- 2962 Feb, [facility] [id number] [place] [address] 32342- 6597 Feb, Generalized anxiety disorder F41.1 and Bipolar disorder, unspecified F31.9 [facility] [id number] [place] [address] 13203- 9636 Jan, [facility] [id number] [place] [address] 04553- 0179 Jan, [facility] [id number] [place] [address] 28968- 0335 Jan, Bipolar disorder, unspecified F31.9 and Generalized anxiety disorder F41.1 [facility] [id number] [place] [address] 83742- 1266 Dec, [facility] [id number] [place] [address] 94108- 1747 14 Dec, 2014 Bipolar disorder, unspecified F31.9 and Generalized anxiety disorder F41.1 [facility] [id number] [place] [address] 49892- 5754 Dec, Generalized anxiety disorder F41.1 and Major depressive disorder, recurrent, moderate F33.1 [facility] [id number] [place] [address] 30456- 9932 Oct, Headache 784.0 ; Cough 786.2 ; Vomiting and diarrhea 787.03 and Dysuria 788.1 [facility] [id number] [place] [address] 31085- 3527 Aug, [facility] [id number] [place] [address] 595951- 9924 Aug, Headache 784.0 and Shortness of breath 786.05 [facility] [id number] [place] [address] 92442- 8387 Aug, [facility] [id number] [place] [address] 19547- 3422 18 Aug, 2014 Migraine 346.90 [facility] [address] 60552- 9011 Jun, [facility] [id number] [place] [address] 13967- 0063 Jun, [facility] [id number] [place] [address] 14582- 5968 May, [facility] [id number] [place] [address] 97014- 4366 May, [facility] [id number] [place] [address] 39462- 5830 May, [facility] [id number] [place] [address] 85756- 0606 May, [facility] [id number] [place] [address] 71581- 1826 May, [facility] [id number] [place] [address] 37056- 5389 May, [facility] [id number] [place] [address] 40889- 7340 Apr, [facility] [id number] [place] [address] 839302- 5699 Apr, [facility] [id number] [place] [address] 80825- 9361 Apr, 2014 [facility] [place] [facility] [address] [id number] [place] [address]- 0656 Apr, [facility] [place] [facility] [address] [id number] [place] 6165 Apr, [facility] [place] [facility] [address] [id number] [place] [address]- 5283 Mar, [facility] [place] [facility] [address] [id number] [place] [address]- 3691 Mar, [facility] [place] [facility] [address] [id number] [place] [address]- 5478 Mar, [facility] [place] [facility] [address] [id number] [place] [address]- 2697 Mar, [facility] [place] [facility] [address] [id number] [place] [address]- 8094 Feb, [facility] [place] [facility] [address] [id number] [place] [address]- 1380 Feb, [facility] [place] [facility] [address] [id number] [place] [address]- 9171 18 Feb, 2014 [facility] [place] [facility] [address] [id number] [place] [address]- 1541 18 Feb, 2014 [facility] [place] [facility] [address] [id number] [place] [address]- 6418 16 Feb, 2014 [facility] [place] [facility] [address] [id number] [place] [address]- 4290 16 Feb, 2014 [facility] [place] [facility] [address] [id number] [place] [address]- 8858 11 Feb, 2014 [facility] [place] [facility] [address] [id number] [place] [address]- 6303 Feb, [facility] [place] [facility] [address] [id number] [place] [address]- 4249 08 Feb, 2014 [facility] [place] [facility] [address] [id number] [place] [address]- 5643 Feb, [facility] [place] [facility] [address] [id number] [place] [address]- 1464 Feb, [facility] [place] [facility] [address] [id number] [place] [address]- 6386 Feb, [facility] [place] [facility] [address] [id number] [place] [address]- 0618 Jan, [facility] [place] [facility] [address] [id number] [place] [address]- 8560 Jan, [facility] [place] [facility] [address] [id number] [place] [address]- 9486 Dec, [facility] [place] [facility] [address] [id number] [place] [address]- 4817 Dec, [facility] [place] [facility] [address] [id number] [place] [address]- 5198 Dec, [facility] [place] [facility] [address] [id number] [place] [address]- 6369 Dec, [facility] [place] [facility] [address] [id number] [place] [address]- 1177 Dec, [facility] [place] [facility] [address] [id number] [place] [address]- 1753 Dec, [facility] [place] [facility] [address] [id number] [place] [address]- 7566 Sep, [facility] [place] [facility] [address] [id number] [place] [address]- 2483 Sep, [facility] [place] [facility] [address] [id number] [place] [address]- 5697 Sep, [facility] [place] [facility] [address] [id number] [place] [address]- 5107 Sep, [facility] [place] [facility] [address] [id number] [place] 7843 Sep, [facility] [place] [facility] [address] [id number] [place] [address]- 3449 14 Sep, 2013 [facility] [place] [facility] [address] [id number] [place] [address]- 3121 Sep, [facility] [place] [facility] [address] [id number] [place] [address]- 0758 07 Sep, 2013 [facility] [place] [facility] [address] [id number] [place] [address]- 6384 Sep, 2013 [facility] [place] [facility] [address] [id number] [place] [address]- 0949 Sep, [facility] [place] [facility] [address] [id number] [place] [address]- 8297 24 Aug, 2013 [facility] [place] [facility] [address] [id number] [place] [address]- 8781 Aug, [facility] [place] [facility] [address] [id number] [place] [address]- 7907 Aug, [facility] [place] [facility] [address] [id number] [place] [address]- 8215 Aug, [facility] [place] [facility] [address] [id number] [place] [address]- 8985 Aug, [facility] [place] [facility] [address] [id number] [place] [address]- 9560 Aug, [facility] [place] [facility] [address] [id number] [place] [address]- 1533 14 Aug, 2013 [facility] [place] [facility] [address] [id number] [place] [address]- 5070 Aug, [facility] [place] [facility] [address] [id number] [place] [address]- 0113 Aug, [facility] [place] [facility] [address] [id number] [place] [address]- 3670 05 Aug, 2013 [facility] [place] [facility] [address] [id number] [place] [address]- 7536 Aug, [facility] [address] [id number] [place] [address]- 3822 Aug, [facility] [place] [facility] [address] [id number] [place] [address]- 1643 Aug, [facility] [place] [facility] [address] [id number] [place] [address]- 7908 July, [facility] [place] [facility] [address] [id number] [place] [address]- 2751 July, [facility] [place] [facility] [address] [id number] [place] [address]- 5376 July, [facility] [place] [facility] [address] [id number] [place] [address]- 1525 July, [facility] [address] [id number] [place] [address]- 5580 July, [facility] [place] [facility] [address] [id number] [place] [address]- 1642 July, [facility] [place] [facility] [address] [id number] [place] [address]- 1901 July, [facility] [place] [facility] [address] [id number] [place] [address]- 6514 Jun, [facility] [place] [facility] [address] [id number] [place] [address]- 5460 Jun, [facility] [place] [facility] [address] [id number] [place] [address]- 2057 18 Jun, 2013 [facility] [place] [facility] [address] [id number] [place] [address]- 6396 Jun, [facility] [place] [facility] [address] [id number] [place] [address]- 4184 Jun, [facility] [place] [facility] [address] [id number] [place] [address]- 4309 Jun, [facility] [place] [facility] [address] [id number] [place] [address]- 5313 08 Jun, 2013 [facility] [place] [facility] [address] [id number] [place] [address]- 4087 17 May, 2013 [facility] [place] [facility] [address] [id number] [place] [address]- 4216 17 May, 2013 [facility] [place] [facility] [address] [id number] [place] [address]- 6873 14 May, 2013 [facility] [place] [facility] [address] [id number] [place] [address]- 7457 14 May, 2013 [facility] [place] [facility] [address] [id number] [place] [address]- 2898 13 May, 2013 [facility] [place] [facility] [address] [id number] [place] [address]- 8068 13 May, 2013 [facility] [place] [facility] [address] [id number] [place] [address]- 6233 10 May, 2013 [facility] [place] [facility] [address] [id number] [place] [address]- 9152 10 May, 2013 [facility] [place] [facility] [address] [id number] [place] [address]- 2883 07 May, 2013 [facility] [place] [facility] [address] [id number] [place] [address]- 3827 26 Apr, 2013 [facility] [place] [facility] [address] [id number] [place] [address]- 1368 26 Apr, 2013 [facility] [place] [facility] [address] [id number] [place] [address]- 8282 18 Apr, 2013 [facility] [place] [facility] [address] [id number] [place] [address]- 4433 15 Apr, 2013 [facility] [place] [facility] [address] [id number] [place] 8256 15 Apr, 2013 [facility] [place] [facility] [address] [id number] [place] [address]- 4631 Apr, [facility] [place] [facility] [address] [id number] [place] [address]- 9380 Apr, [facility] [place] [facility] [address] [id number] [place] [address]- 6176 Apr, [facility] [place] [facility] [address] [id number] [place] [address]- 2316 Apr, [facility] [place] [facility] [address] [id number] [place] [address]- 0930 Apr, [facility] [place] [facility] [address] [id number] [place] [address]- 4656 Mar, [facility] [place] [facility] [address] [id number] [place] [address]- 7997 Mar, [facility] [place] [facility] [address] [id number] [place] [address]- 2922 Mar, [facility] [place] [facility] [address] [id number] [place] [address]- 2415 Mar, [facility] [place] [facility] [address] [id number] [place] [address]- 9902 Mar, [facility] [place] [facility] [address] [facility] [id number] [place] [address]- 4125 Mar, [facility] [place] [facility] [address] [id number] [place] [address]- 4743 Mar, [facility] [place] [facility] [address] [id number] [place] [address]- 3744 Mar, [facility] [place] [facility] [address] [id number] [place] [address]- 9055 Feb, [facility] [place] [facility] [address] [id number] [place] [address]- 7489 Feb, [facility] [place] [facility] [address] [id number] [place] [address]- 5437 Jan, [facility] [place] [facility] [address] [id number] [place] [address]- 2266 18 Jan, 2013 [facility] [place] [facility] [address] [id number] [place] [address]- 2537 15 Jan, 2013 [facility] [place] [facility] [address] [id number] [place] [address]- 8530 15 Jan, 2013 [facility] [place] [facility] [address] [id number] [place] [address]- 7214 Jan, [facility] [place] [facility] [address] [id number] [place] [address]- 5078 Jan, [facility] [place] [facility] [address] [id number] [place] [address]- 3132 Jan, [facility] [place] [facility] [address] [id number] [place] [address]- 6578 Jan, [facility] [place] [facility] [address] [id number] [place] [address]- 5156 Dec, [facility] [place] [facility] [address] [id number] [place] [address]- 3393 Dec, [facility] [place] [facility] [address] [id number] [place] [address]- 7235 10 Dec, 2012 [facility] [place] [facility] [address] [id number] [place] [address]- 3440 20 Nov, 2012 [facility] [place] [facility] [address] [id number] [place] [address]- 0625 13 Nov, 2012 [facility] [place] [facility] [address] [id number] [place] [address]- 8869 12 Nov, 2012 [facility] [place] [facility] [address] [id number] [place] [address]- 1324 09 Sep2012 [facility] [place] [facility] [address] [id number] [place] [address]- 1677 06 Sep, 2012 [facility] [place] [facility] [address] [id number] [place] [address]- 1016 Nov, [facility] [place] [facility] [address] [id number] [place] [address]- 6473 Oct, [facility] [place] [facility] [address] [id number] [place] [address]- 1236 Oct, [facility] [place] [facility] [address] [id number] [place] [address]- 7039 Sep, [facility] [place] [facility] [address] [id number] [place] [address]- 2710 Sep, [facility] [place] [facility] [address] [id number] [place] [address]- 8318 Sep, [facility] [place] [facility] [address] [id number] [place] [address]- 8920 Sep, [facility] [place] [facility] [address] [id number] [place] [address]- 3491 Sep, [facility] [place] [facility] [address] [id number] [place] [address]- 0755 Sep, [facility] [place] [facility] [address] [id number] [place] [address]- 2070 Sep, [facility] [place] [facility] [address] [id number] [place] [address]- 1307 Aug, [facility] [place] [facility] [address] [id number] [place] [address]- 9784 14 Aug, 2012 [facility] [place] [facility] [address] [id number] [place] [address]- 8731 Aug, [facility] [place] [facility] [address] [id number] [place] [address]- 0279 Aug, [facility] [place] [facility] [address] [id number] [place] [address]- 4593 Aug, [facility] [place] [facility] [address] [id number] [place] [address]- 7076 Aug, [facility] [place] [facility] [address] [id number] [place] [address]- 9965 July, [facility] [address] [id number] [place] [address]- 5913 July, [facility] [address] [id number] [place] [address]- 6756 July, [facility] [address] [id number] [place] [address]- 8837 July, [facility] [address] [id number] [place] [address]- 8074 July, [facility] [address] [id number] [place] [address]- 6502 July, [facility] [address] [id number] [place] [address]- 7090 Jun, [facility] [address] [id number] [place] [address]- 1467 Jun, [facility] [address] [id number] [place] [address]- 8299 Jun, [facility] [address] [id number] [place] [address]- 4365 Jun, [facility] [address] [id number] [place] [address]- 5131 Jun, [facility] [address] [id number] [place] [address]- 3206 Jun, [facility] [address] [id number] [place] [address]- 9735 Jun, [facility] [address] [id number] [place] [address]- 0136 May, [facility] [address] [id number] [place] [address]- 2546 May, [facility] [address] [id number] [place] [address] Apr, [facility] [address] [id number] [place] [address] Apr, [facility] [place] [facility] [address] [id number] [place] [address] Apr, [facility] [place] [facility] [address] [id number] [place] [address] Apr, [facility] [place] [facility] [address] [id number] [place] [address] Apr, [facility] [place] [facility] [address] [id number] [place] [address] 08 Apr, 2012 [facility] [place] [facility] [address] [id number] [place] [address] 07 Apr, 2012 [facility] [place] [facility] [address] [id number] [place] [address] 07 Apr, 2012 [facility] [place] [facility] [address] [id number] [place] [address] 06 Apr, 2012 [facility] [place] [facility] [address] [id number] [place] [address] 06 Apr, 2012 [facility] [place] [facility] [address] [id number] [place] [address] Apr, [facility] [place] [facility] [address] [id number] [place] [address] Mar, [facility] [place] [facility] [address] [id number] [place] [address] Mar, [facility] [place] [facility] [address] [id number] [place] [address] Mar, [facility] [place] [facility] [address] [id number] [place] [address] Mar, [facility] [place] [facility] [address] [id number] [place] [address] Mar, [facility] [place] [facility] [address] [id number] [place] [address] 15 Mar, 2012 [facility] [address] [id number] [place] [address] 15 Mar, 2012 [facility] [address] [id number] [place] [address] 15 Mar, 2012 [facility] [address] [id number] [place] [address] 09 Mar, 2012 [facility] [address] [id number] [place] [address] Mar, [facility] [address] [id number] [place] [address] Mar, [facility] [address] [id number] [place] [address] Mar, [facility] [address] [id number] [place] [address] Mar, [facility] [address] [id number] [place] [address] Feb, [facility] [address] [id number] [place] [address] Feb, [facility] [address] [id number] [place] [address] 18 Feb, 2012 [facility] [address] [id number] [place] [address] 18 Feb, 2012 [facility] [address] [id number] [place] [address] Feb, [facility] [address] [id number] [place] [address] Feb, [facility] [address] [id number] [place] [address] Feb, [facility] [address] [id number] [place] [address] Feb, [facility] [place] [facility] [address] [id number] [place] [address] Feb, [facility] [place] [facility] [address] [id number] [place] [address] Feb, [facility] [place] [facility] [address] [id number] [place] [address] Feb, [facility] [place] [facility] [address] [id number] [place] [address] Feb, [facility] [place] [facility] [address] [id number] [place] [address] Feb, [facility] [place] [facility] [address] [id number] [place] [address] Feb, [facility] [place] [facility] [address] [facility] [id number] [place] [address] Feb, [facility] [place] [facility] [address] [id number] [place] [address] Jan, [facility] [place] [facility] [address] [id number] [place] [address] Jan, [facility] [place] [facility] [address] [facility] [id number], [place] [address] Jan, [facility] [place] [facility] [address] [id number], [place] [address] Jan, [facility] [place] [facility] [address] [id number], [place] [address] Dec, [facility] [place] [facility] [address] [id number] [place] [address] Dec, [facility] [place] [facility] [address] [id number], [place] [address] Dec, [facility] [place] [facility] [address] [id number] [place] [address]- [address] Dec, [facility] [place] [facility] [address] [id number] [place] [address]- [address]676 25 Dec, 2011 [facility] [place] [facility] [address] [id number] [place] [address]- [address] 25 Dec, 2011 [facility] [place] [facility] [address] [id number] [place] [address] 16 Dec, 2011 [facility] [place] [facility] [address] [id number] [place] [address]- [address]66 16 Dec, 2011 [facility] [place] [facility] [address] [address] [id number] [place] [address] 07 Dec, 2011 [facility] [place] [facility] [address] [id number] [place] [address] 04 Dec, 2011 [facility] [place] [facility] [address] [id number] [place] [address] 03 Dec, 2011 [facility] [place] [facility] [address] [id number] [place] [address] 25 Sep, 2011 [facility] [place] [facility] [address] [id number] [place] [address] 24 Sep, 2011 [facility] [place] [facility] [address] [id number] [place] [address] 8814 20 Sep, 2011 [facility] [place] [facility] [address] [facility] [id number] [place] [address] 19 Sep, 2011 [facility] [place] [facility] [address] [id number] [place] [address] 4626 17 Sep, 2011 [facility] [place] [facility] [address] [id number], [place] [address] 16 Sep, 2011 [facility] [place] [facility] [address] [id number] [place] [address] 0922 14 Sep, 2011 [facility] [place] [facility] [address] [facility] [id number] [place] [address] 2546 13 Sep, 2011 [facility] [place] [facility] [address] [facility] [id number], [place] [address] 12 Sep, 2011 [facility] [place] [facility] [address] [id number] [place] [address] 8870 07 Sep, 2011 [facility] [place] [facility] [address] [id number] [place] [address] 4716 06 Sep, 2011 [facility] [place] [facility] [address] [id number] [place] [address] 2546 06 Nov, 2011 [facility] [place] [facility] [address] [id number] [place] [address] 7927 05 Nov, 2011 [facility] [place] [facility] [address] [id number] [place] [address]885 Oct, [facility] [place] [facility] [address] [id number] [place] [address]563 Oct, [facility] [place] [facility] [address] [id number] [place] [address] 3524 Oct, [facility] [place] [facility] [address] [id number] [place] [address]99 Oct, [facility] [place] [facility] [address] [id number] [place] [address] Oct, [facility] [place] [facility] [address] [id number] [place] [address] 1733 Oct, [facility] [place] [facility] [address] [id number] [place] [address]81 Oct, [facility] [place] [facility] [address] [id number] [place] [address] 7264 16 Oct, 2011 [facility] [place] [facility] [address] [id number] [place] [address] 15 Oct, 2011 [facility] [place] [facility] [address] [id number] [place] [address] 1001 13 Oct, 2011 [facility] [place] [facility] [address] [id number] [place] [address] 2540 08 Oct, 2011 [facility] [place] [facility] [address] [id number] [place] [address] 2535 Sep, [facility] [place] [facility] [address] [id number] [place] [address] 0228 Sep, [facility] [place] [facility] [address] [id number] [place] [address] 7286 Sep, [facility] [place] [facility] [address] [id number] [place] [address] 5741 Sep, [facility] [place] [facility] [address] [id number] [place] [address] 5[address] Sep, [facility] [place] [facility] [address] [id number] [place] [address] 1084 Sep, [facility] [place] [facility] [address] [id number] [place] [address] 9189 Aug, [facility] [place] [facility] [address] [id number] [place] [address] 3112 July, [facility] [place] [facility] [address] [id number] [place] [address] 4546 July, [facility] [place] [facility] [address] [id number] [place] [address] 3563 Jun, [facility] [place] [facility] [address] [id number] [place] [address] 5151 Jun, [facility] [place] [facility] [address] [id number] [place] [address] 0689 Jun, [facility] [place] [facility] [address] [id number] [place] [address] 0098 Jun, [facility] [place] [facility] [address] [id number] [place] [address] 4417 Jun, [facility] [place] [facility] [address] [id number] [place] [address] 3414 Jun, [facility] [place] [facility] [address] [id number] [place] [address] 0528 Jun, [facility] [place] [facility] [address] [id number] [place] [address] 2446 08 Jun, 2011 [facility] [address] [id number] [place] [address] 2601 03 Jun, 2011 [facility] [place] [facility] [address] [id number] [place] [address] 3336 Jun, [facility] [place] [facility] [address] [id number] [place] [address] 9916 Jun, [facility] [place] [facility] [address] [id number] [place] [address] 4164 19 May, 2011 [facility] [place] [facility] [address] [id number] [place] [address] 9667 16 May, 2011 [facility] [place] [facility] [address] [id number] [place] [address] 2788 14 May, 2011 [facility] [place] [facility] [address] [facility] [id number] [place] [address] 1164 06 May, 2011 [facility] [address] [id number] [place] [address] 5508 28 Apr, 2011 [facility] [place] [facility] [address] [id number] [place] [address] 3527 28 Apr, 2011 [facility] [address] [id number] [place] [address] 27 Apr, 2011 [facility] [place] [facility] [address] [facility] [id number] [place] [address] 9616 Apr, [facility] [place] [facility] [address] [id number] [place] [address] 2549 Apr, [facility] [place] [facility] [address] [id number] [place] [address] 7126 Apr, [facility] [place] [facility] [address] [facility] [id number] [place] [address] 6216 Apr, [facility] [place] [facility] [address] [id number] [place] [address] 1019 Apr, [facility] [address] [id number] [place] [address]- 1995 Mar, [facility] [place] [facility] [address] [id number] [place] [address] 8528 Mar, [facility] [place] [facility] [address] [id number] [place] [address] 3820 Mar, [facility] [place] [facility] [address] [id number] [place] [address]- 9616 Mar, [facility] [place] [facility] [address] [id number] [place] [address]- 7152 Mar, [facility] [place] [facility] [address] [id number] [place] [address]- 8498 Mar, [facility] [place] [facility] [address] [id number] [place] [address]- 8215 Mar, [facility] [place] [facility] [address] [id number] [place] [address]- 5276 Mar, [facility] [place] [facility] [address] [id number] [place] [address]- 4286 Mar, [facility] [place] [facility] [address] [id number] [place] [address]- 3319 Mar, [facility] [place] [facility] [address] [id number], [place] [address] 3290 Mar, [facility] [place] [facility] [address] [id number], [place] [address]- 3286 Mar, [facility] [place] [facility] [address] [id number] [place] [address]- 5636 Mar, [facility] [place] [facility] [address] [id number], [place] [address]- 1901 Mar, [facility] [place] [facility] [address] [id number] [place] [address]- 4486 Mar, [facility] [place] [facility] [address] [id number] [place] [address]- 4605 Mar, [facility] [address] [id number] [place] [address]- 6293 Feb, [facility] [place] [facility] [address] [id number] [place] [address] Feb, [facility] [address] [id number] [place] [address]- 4388 Feb, [facility] [place] [facility] [address] [id number] [place] [address]- 5420 Jan, [facility] [address] [id number] [place] [address]- 1512 Jan, [facility] [place] [facility] [address] [id number] [place] [address]- 0199 Jan, [facility] [address] [id number] [place] [address]- 6186 Dec, [facility] [place] [facility] [address] [id number] [place] [address]- 7777 Dec, [facility] [place] [facility] [address] [id number] [place] [address]- 4321 Nov, [facility] [place] [facility] [address] [id number] [place] [address]- 7014 Oct, [facility] [place] [facility] [address] [id number] [place] [address]- 4436 Oct, [facility] [place] [facility] [address] [id number] [place] [address]- 7013 Oct, [facility] [place] [facility] [address] [id number] [place] [address]- 5653 Sep, [facility] [place] [facility] [address] [id number] [place] [address]- 5632 16 Apr, 2010 [facility] [place] [facility] [address] [id number] [place] [address]- 3794 Feb, [facility] [address] [facility] [id number] [place] [address] Jan, IMMUNIZATIONS No Known Immunizations SOCIAL HISTORY Never Assessed REASON FOR VISIT Returned call PLAN OF CARE VITAL SIGNS MEDICATIONS [...] Hospitalization History for surgeries Hospitalization History AMS 2/ Benzos OD, pneumonia MRSA, [facility], Hypokalemia-- [facility] 12/20/2015 Hospitalization History COPD exacerbation, Asthma-[facility] 09/21/16 Hospitalization History COPD-[facility] 12/30/2016 Hospitalization History [facility] inpatient-last around 2006 or so. Hospitalization History for COPD x2 Mar 2017 Hospitalization History Upper GI bleed at apr 2017 Hospitalization History [facility]- COPD Exacerbation, diarrhea 05/23/2017 Hospitalization History COPD exacerbation-[facility] 06/13/17 Hospitalization History [facility] 09/09/2017
--- OUTSIDE RECORDS SUMMARY | 2017-11-19 13:27 | XMS REPORT ---
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 Name Role Phone ALIZA CARTER Unavailable PROBLEMS Type Condition ICD9-CM Code [id number] Code Onset Dates Condition Status SNOMED Code Problem Bipolar disorder with depression F31.30 Active 56715901 Problem Other emphysema J43.8 Active 57311534 Problem Migraine without aura and without status migrainosus, not intractable G43.009 Active 898224368 Problem Anxiety F41.9 Active 08413430 Problem COPD with exacerbation J44.1 Active 079120108 Problem Methamphetamine use disorder, moderate, 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 Active 83515174 Problem Chronic bronchitis, unspecified chronic bronchitis type J42 Active 62459108 Problem Intractable cyclical vomiting with nausea G43.A1 Active 05176200 Problem Diabetes E11.9 Active 658402297 Problem 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 Active Problem Tobacco abuse Z72.0 Active 94612819 Problem Examination of eyes and vision V72.0 Active 870439267 Problem Chronic constipation K59.09 Active 851556166 Problem Memory loss R41.3 Active 65461111 Problem Migraine G43.909 Active 70587033 Problem Bipolar disorder, unspecified F31.9 Active 88919421 Problem TMJ (sprain of temporomandibular joint) S03.4XXA Active 98853028 Problem Generalized anxiety disorder F41.1 Active 08266722 ALLERGIES No Information ENCOUNTERS Encounter Location Date Diagnosis [facility] [address], [place] [address] Oct, [facility] [address], [place] [address] Oct, [facility] [address], [place] [address] 7[address] Oct, Thrush B37.0 [facility] [address], [place] [address] 7[address] Sep, COPD with exacerbation J44.1 and Anxiety F41.9 [facility] [address], [place] [address] 7600 Sep, [facility] [id number] [place] [address] 47150- 9544 Sep, [facility] [address], [place] [address] 79[address] Sep, [facility] [id number] [place] [address] 97998- 2345 Sep, Acute congestive heart failure, unspecified heart failure type I50.9 and Anxiety disorder, unspecified F41.9 [facility] [id number] [address] Sep, Heart failure, unspecified HF chronicity, unspecified heart failure type I50.9 [facility] [address], [place] [address] 0[address] Sep, [facility] [address], [place] [address] 0275 Aug, Chronic obstructive pulmonary disease with acute exacerbation J44.1 [facility] [address], [place] [address] 6[address] Aug, [facility] [address] [address] 2396 Aug, [facility] [address], [place] [address] 4[address] July, [facility] [address], [place] [address] 2751 July, [facility] [address], [place] [address] 4313 July, Diabetes E11.9 and Chronic obstructive pulmonary disease with acute exacerbation J44.1 [facility] [id number] [place] [address] 87989- 6783 Jun, Chronic obstructive pulmonary disease with acute exacerbation J44.1 ; Diabetes E11.9 and Tobacco abuse Z72.0 [facility] [id number] [place] [address] 40231- 7289 Jun, [facility] [id number] [place] [address] 27489- 6379 Jun, [facility] [id number] [place] [address] 98497- 1509 May, [facility] [id number] [place] [address] 18966- 9134 May, [facility] WALK IN [facility] [id number] [place] [address] 22951 -7074 17 May, 2017 [facility] [id number] [place] [address] 56097- 7366 16 May, 2017 [facility] [id number] [place] [address] 74424- 9839 15 May, 2017 [facility] [id number] [place] [address] 12575- 2655 14 May, 2017 Diarrhea, unspecified type R19.7 and Intractable cyclical vomiting with nausea G43.A1 [facility] [id number] [place] [address] 24948- 1909 May, [facility] [id number] [place] [address] 59732- 4118 05 May, 2017 [facility] [id number] [place] [address] 76532- 0104 28 Apr, 2017 COPD exacerbation J44.1 ; Esophageal candidiasis B37.81 ; Other acute gastritis with hemorrhage K29.01 and Acute posthemorrhagic anemia D62 [facility] [id number] [place] [address] 03923- 6564 Apr, Viral illness B34.9 and COPD exacerbation J44.1 [facility] [id number] [place] [address] 27500 -8620 Apr, Shortness of breath R06.02 and Pneumonia of both lower lobes due to infectious organism J18.9 [facility] [id number] [place] [address] 94567 -5233 Mar, COPD with acute exacerbation J44.1 [facility] [id number] [place] [address] 24223- 0856 Mar, Chronic obstructive pulmonary disease with acute exacerbation J44.1 and Diabetes E11.9 [place] [address] [address]- 0177 Mar, [place] [address] 71760- 6654 Mar, [facility] WALK IN [facility] [id number] [place] [address] 06059 -5018 Mar, COPD exacerbation J44.1 [facility] [id number] [place] [address] 53095- 8095 Mar, [facility] [id number] [place] [address] 57122- 6767 Mar, Migraine G43.909 ; Hypokalemia E87.6 and Type 2 diabetes mellitus without complications E11.9 [facility] [id number] [place] [address] 58489- 5282 Feb, [facility] [id number] [place] [address] 40377- 9159 Feb, [facility] [id number] [place] [address] 53132- 1340 Feb, Methamphetamine use disorder, moderate, 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 ; Major depressive disorder, recurrent, moderate F33.1 ; Anxiety disorder, unspecified F41.9 and Tobacco abuse Z72.0 [place] [id number] [place] [address] 93772- 1948 30 Jan, 2017 Major depressive disorder, recurrent, moderate F33.1 [facility] [id number] [place] [address] 31641- 2987 16 Jan, 2017 [facility] [id number] [place] [address] 16219- 6289 14 Jan, 2017 [facility] [address] 28056- 8221 Jan, Major depressive disorder, recurrent, moderate F33.1 [place] [id number] [place] [address] 087665- 2955 Jan, Major depressive disorder, recurrent, moderate F33.1 ; Anxiety disorder, unspecified F41.9 ; Methamphetamine use disorder, moderate, 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 and Tobacco abuse Z72.0 [facility] [facility] [id number] [place] [address] 18599- 2683 07 Jan, 2017 [place] [facility] [id number] [place] [address] 92472- 6346 06 Jan, 2017 Chronic obstructive pulmonary disease with acute exacerbation J44.1 and Diabetes E11.9 [facility] [id number] [place] [address] 98788- 4467 06 Jan, 2017 [place] [facility] [id number] [place] [address] 18629- 1611 Jan, [facility] [id number] [place] [address] 16129- 4276 Dec, Acute respiratory failure with hypoxia J96.01 ; Chronic bronchitis, unspecified chronic bronchitis type J42 and Tobacco use Z72.0 [place] [id number] [place] [address] 77018- 6822 Dec, [facility] [id number] [place] [address] [id number] Nov, Dental caries K02.9 and Dental examination Z01.20 [place] [address], [place] [address]- 4724 Nov, Major depressive disorder, recurrent, moderate F33.1 ; Anxiety disorder, unspecified F41.9 and 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 [facility] [address] [address] Oct, Dental examination Z01.20 [facility] [id number] [place] [address] 16984- 2162 Oct, [facility] [id number] [place] [address] 33372- 0971 Oct, Diabetes E11.9 and Thrush B37.0 [facility] [id number] [place] [address] 89520- 9330 Oct, [facility] [id number] [place] [address] 68718- 4819 Oct, [facility] [id number] [place] [address] 99126- 4485 Oct, [facility] [id number] [place] [address] 52492- 9220 Sep, Major depressive disorder, recurrent, moderate F33.1 ; Anxiety disorder, unspecified F41.9 and Bipolar disorder, unspecified F31.9 [facility] [id number] [place] [address] 16249- 9284 Sep, Acute exacerbation of chronic obstructive pulmonary disease (COPD) J44.1 and Migraine G43.909 [facility] [id number] [place] [address] 40151- 2534 Sep, [facility] [id number] [place] [address] [id number] Sep, [facility] [address], [place] [address]- 7691 Sep, Acute exacerbation of chronic obstructive pulmonary disease (COPD) J44.1 [facility] [address], [place] [address]0813 15 Sep, 2016 Acute exacerbation of chronic obstructive pulmonary disease (COPD) J44.1 [facility] [id number] [place] [address] 59379- 1468 Aug, [facility] [id number] [place] [address] 34733- 6221 20 Aug, 2016 Major depressive disorder, recurrent, moderate F33.1 ; Anxiety disorder, unspecified F41.9 and 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 [facility] [id number] [place] [address] 78699- 7230 19 Aug, 2016 Wheezing R06.2 ; Non morbid obesity due to excess calories E66.09 ; Migraine without aura and without status migrainosus, not intractable G43.009 and Tobacco abuse Z72.0 [facility] [id number] [place] [address] [id number] 14 Aug, 2016 Encounter for dental examination Z01.20 [facility] [id number] [place] [address] 27524- 3275 02 Aug, 2016 Major depressive disorder, recurrent, moderate F33.1 ; Anxiety disorder, unspecified F41.9 and 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 [facility] [address], [place] [address]- 3980 July, [facility] [id number] [place] [address] 23988- 0762 July, [facility] [id number] [place] [address] 72757- 6814 July, [facility] [id number] [place] [address] 13919- 2985 July, Diabetes E11.9 [facility] [id number] [place] [address] 74994- 5620 Jun, Major depressive disorder, recurrent, moderate F33.1 [place] [address] [place] [address] 28164- 5674 Jun, Major depressive disorder, recurrent, moderate F33.1 ; 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 ; Generalized anxiety disorder F41.1 and Bipolar disorder, unspecified F31.9 [facility] [address] 10005- 0841 Jun, Diabetes E11.9 ; Migraine G43.909 ; Thrush B37.0 and Wheezing R06.2 [facility] [id number] [place] [address] [id number] Jun, Dental examination Z01.20 [facility] [address] 95201- 2437 Jun, [facility] [address] 71224- 0009 Jun, Major depressive disorder, recurrent, moderate F33.1 ; Anxiety disorder, unspecified F41.9 and 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 [facility] [id number] [place] [address] 91580- 4263 Jun, [facility] [id number] [place] [address] 78888- 2029 Jun, Wheezing R06.2 [facility] [address] [id number] Jun, Dental caries K02.9 [facility] [address] 95248- 5078 Jun, Major depressive disorder, recurrent, moderate F33.1 ; Anxiety disorder, unspecified F41.9 and 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 [facility] [id number] [place] [address] 07130- 6271 Jun, RLQ abdominal pain R10.31 ; Diabetes E11.9 ; Obesity, unspecified obesity severity, unspecified obesity type E66.9 ; Wheezing R06.2 and Abnormal urinalysis R82.90 [facility] [address] [place] [address] 66462- 2862 May, [facility] [id number] [place] [address] 53273- 9168 May, Well woman exam Z01.419 ; Breast cancer screening Z12.39 ; Cervical cancer screening Z12.4 ; Urinary frequency R35.0 ; Edema, unspecified type R60.9 and Chronic constipation K59.09 [facility] [id number] [place] [address] 44326- 3426 May, Major depressive disorder, recurrent, moderate F33.1 ; Anxiety disorder, unspecified F41.9 and Other 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 [facility] [id number] [place] [address] [id number] May, Dental examination Z01.20 [facility] [id number] [place] [address] 01631- 3834 May, [facility] [id number] [place] [address] 52617- 0262 May, [facility] [id number] [place] [address] 75217- 4494 May, Chronic constipation K59.09 [facility] [id number] [place] [address] 84316- 6575 Apr, [facility] [id number] [place] [address] 55703- 4586 Apr, Major depressive disorder, recurrent, moderate F33.1 ; Anxiety disorder, unspecified F41.9 and 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 [facility] [id number] [place] [address] 25437- 5234 Apr, [facility] [id number] [place] [address] 61348- 8221 Mar, Major depressive disorder, recurrent, moderate F33.1 [place] [address] [place] [address] 00885- 3816 Mar, Major depressive disorder, recurrent, moderate F33.1 ; Generalized anxiety disorder F41.1 and Bipolar I disorder, most recent episode depressed with anxious distress F31.30 [facility] [facility] [address] [place] [address] 63151- 8284 Mar, Diabetes E11.9 ; Non morbid obesity due to excess calories E66.09 ; Breast cancer screening Z12.39 and Encounter for immunization Z23 [facility] [facility] [id number] [place] [address] 67938- 8331 Mar, Major depressive disorder, recurrent, moderate F33.1 ; Anxiety disorder, unspecified F41.9 and 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 [place] [id number] [place] [address] 29450- 7618 Mar, [place] [facility] [id number] [place] [address] 65397- 1491 Feb, Major depressive disorder, recurrent, moderate F33.1 ; Anxiety disorder, unspecified F41.9 and 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 [place] [address] [place] [address] 65878- 8474 Feb, [place] [facility] [id number] [place] [address] 60712- 9233 Feb, [place] [facility] [id number] [place] [address] 41875- 0233 Jan, Major depressive disorder, recurrent, moderate F33.1 ; Generalized anxiety disorder F41.1 and Bipolar disorder, current episode depressed, severe, without psychotic features F31.[address] [place] [address] 42057- 6907 18 Jan, 2016 Major depressive disorder, recurrent, moderate F33.1 ; Anxiety disorder, unspecified F41.9 and 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 [facility] [address], [place] [address]- 7933 16 Jan, 2016 Bronchitis J40 [facility] [address] [place] [address] 31415- 7606 15 Jan, 2016 [facility] [address] [place] [address] 91459- 0967 Jan, [facility] [address] [place] [address] 05122- 5445 Jan, Elbow injury, right, initial encounter S59.901A ; Multiple contusions T14.8 and Cervical strain, acute, initial encounter S16.1XXA [facility] [address] [place] [address] 08964- 4167 Dec, Major depressive disorder, recurrent, moderate F33.1 ; Generalized anxiety disorder F41.1 and Bipolar disorder with depression F31.30 [facility] [address] [place] [address] 29988- 8567 Dec, [facility] [address] [place] [address] 88728- 2525 Dec, [facility] [address] [place] [address] 64060- 7712 Dec, [facility] [address] [place] [address] 03579- 5723 Dec, [facility] [address] [place] [address] 79869- 0168 Dec, Yeast infection B37.9 [facility] [address] [place] [address] 82023- 5476 Dec, Pneumonia of both lungs due to methicillin resistant Staphylococcus aureus (MRSA), unspecified part of lung J15.212 and Benzodiazepine overdose, accidental or unintentional, subsequent encounter T42.4X1D [facility] [address] [place] [address] 11118- 8460 Dec, [place] [id number] [place] [address] 08499- 6530 Dec, [place] [address] 62787- 6180 Dec, Knee pain, left M25.562 and Edema, unspecified type R60.9 [place] [facility] [id number] [place] [address] 16010- 2352 Dec, [place] [facility] [id number] [place] [address] 34292- 2813 Dec, Anxiety disorder, unspecified F41.9 and Bipolar disorder, unspecified F31.9 [place] [id number] [place] [address] 10071- 3562 Nov, Major depressive disorder, recurrent, moderate F33.1 ; Anxiety disorder, unspecified F41.9 and 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 [place] [facility] [id number] [place] [address] 70115- 4933 Nov, [place] [facility] [id number] [place] [address] 02859- 1321 Nov, Migraine without aura and without status migrainosus, not intractable G43.009 [place] [facility] [id number] [place] [address] 50186- 5019 Nov, Migraine G43.909 [place] [facility] [id number] [place] [address] 82862- 5278 Nov, [facility] [address] [place] [address] 41150- 5923 Nov, Major depressive disorder, recurrent, moderate F33.1 ; Anxiety disorder, unspecified F41.9 and 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 [place] [id number] [place] [address] 19898- 8443 Oct, Chronic constipation K59.09 and Obesity, unspecified obesity severity, unspecified obesity type E66.9 [place] [address] [place] [address] 96856- 1817 Oct, Obesity, unspecified obesity severity, unspecified obesity type E66.9 ; Chronic constipation K59.09 and Anxiety disorder, unspecified F41.9 [place] [id number] [place] [address] 74588- 0283 Oct, [place] [facility] [id number] [place] [address] 16790- 2239 Sep, Diabetes E11.9 ; Edema, unspecified type R60.9 ; Varicose vein of leg I83.90 and Obesity, unspecified obesity severity, unspecified obesity type E66.9 [place] [facility] [id number] [place] [address] 50942- 1599 Sep, Edema, unspecified type R60.9 ; Diabetes E11.9 and Knee pain , left M25.562 [place] [facility] [id number] [place] [address] 93667- 8168 Sep, [place] [facility] [id number] [place] [address] 33954- 1301 Sep, [place] [facility] [id number] [place] [address] 90925- 6759 Sep, Major depressive disorder, recurrent, moderate F33.1 ; Generalized anxiety disorder F41.1 and Bipolar disorder, unspecified F31.9 [place] [facility] [id number] [place] [address] 02598- 3352 Aug, Chondromalacia of left knee M94.262 [facility] [facility] [id number] [place] [address] 20157- 1692 Aug, Major depressive disorder, recurrent, moderate F33.1 ; Anxiety disorder, unspecified F41.9 and 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 [place] [facility] [id number] [place] [address] 55782- 1503 Aug, [facility] [id number] [place] [address] [id number] Aug, Osteoarthritis of left knee M17.9 [facility] [id number] [place] [address] [id number] Aug, [facility] [id number] [place] [address] [id number] [phone] July, Major depressive disorder, recurrent, moderate F33.1 ; Anxiety disorder, unspecified F41.9 and 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 [facility] [address] [id number] [place] [address] 95848- 7236 July, [facility] [id number] [place] [address] 62559- 7253 July, Chronic constipation K59.09 [facility] [id number] [place] [address] 63303- 3318 Jun, [facility] [id number] [place] [address] 51392- 5241 Jun, [facility] [id number] [place] [address] 77326- 5024 14 Jun, 2015 Osteoarthritis of left knee M17.9 [facility] [id number] [place] [address] 02480- 7950 Jun, [facility] [id number] [place] [address] 15913- 2107 Jun, Generalized anxiety disorder F41.1 ; Bipolar disorder, unspecified F31.9 and Major depressive disorder, recurrent, moderate F33.1 [facility] [id number] [place] [address] 86223- 6699 07 Jun, 2015 Migraine G43.909 [facility] [id number] [place] [address] 81323- 3698 07 Jun, 2015 Left knee pain M25.562 ; Chronic constipation K59.09 ; Dry mouth R68.2 ; Yeast vaginitis B37.3 and Memory loss R41.3 [facility] [facility] [id number] [place] [address] 75954- 8634 Jun, [facility] [facility] [id number] [place] [address] 84007- 1651 May, [address] [facility] [id number] [place] [address] 11775- 5719 May, [address] 41070- 3285 May, [facility] [id number] [place] [address] 02232- 3758 May, [facility] [id number] [place] [address] 88199- 3094 May, Acute bronchitis with COPD J44.0 ; Knee pain, left M25.562 and Encounter for tobacco use cessation counseling Z71.6 [facility] [id number] [place] [address] 05289- 6906 May, [address] [facility] [id number] [place] [address] 82194- 5390 Apr, Diabetes E11.9 ; TMJ (sprain of temporomandibular joint) S03.4XXA ; Tobacco abuse Z72.0 ; Migraine G43.909 and Anxiety F41.9 [facility] [id number] [place] [address] 13936- 8295 Apr, Generalized anxiety disorder F41.1 and Bipolar disorder, unspecified F31.9 [facility] [id number] [place] [address] 08553- 8080 Apr, Major depressive disorder, recurrent, moderate F33.1 ; Anxiety disorder, unspecified F41.9 and 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 [facility] [id number] [place] [address] 25492- 4338 Apr, [address] [address] [id number] [address] 1578 Mar, [facility] [id number] [place] [address] 45919- 1623 Feb, [facility] [id number] [place] [address] 21784- 1338 Feb, Major depressive disorder, recurrent, moderate F33.1 ; Anxiety disorder, unspecified F41.9 and 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 [facility] [id number] [place] [address] 08960- 5149 Feb, [facility] [id number] [place] [address] 05577- 6437 Feb, Generalized anxiety disorder F41.1 and Bipolar disorder, unspecified F31.9 [facility] [id number] [place] [address] 99941- 7986 Jan, [facility] [id number] [place] [address] 66293- 8389 Jan, [facility] [id number] [place] [address] 55420- 0815 Jan, Bipolar disorder, unspecified F31.9 and Generalized anxiety disorder F41.1 [facility] [id number] [place] [address] 59168- 7660 Dec, [facility] [id number] [place] [address] 84910- 0931 14 Dec, 2014 Bipolar disorder, unspecified F31.9 and Generalized anxiety disorder F41.1 [facility] [id number] [place] [address] 83603- 1508 Dec, Generalized anxiety disorder F41.1 and Major depressive disorder, recurrent, moderate F33.1 [facility] [id number] [place] [address] 81890- 7355 Oct, Headache 784.0 ; Cough 786.2 ; Vomiting and diarrhea 787.03 and Dysuria 788.1 [facility] [id number] [place] [address] 41163- 2282 Aug, [facility] [id number] [place] [address] 408810- 1975 Aug, Headache 784.0 and Shortness of breath 786.05 [facility] [id number] [place] [address] 72128- 8717 Aug, [facility] [id number] [place] [address] 38406- 9280 18 Aug, 2014 Migraine 346.90 [facility] [address] 56894- 6932 Jun, [facility] [id number] [place] [address] 10830- 4931 Jun, [facility] [id number] [place] [address] 96966- 8826 May, [facility] [id number] [place] [address] 40508- 8904 May, [facility] [id number] [place] [address] 25287- 0668 May, [facility] [id number] [place] [address] 34660- 7913 May, [facility] [id number] [place] [address] 99968- 4929 May, [facility] [id number] [place] [address] 19741- 8137 May, [facility] [id number] [place] [address] 88110- 6756 Apr, [facility] [id number] [place] [address] 379883- 0644 Apr, [facility] [id number] [place] [address] 67953- 3803 Apr, 2014 [facility] [place] [facility] [address] [id number] [place] [address]- 6072 Apr, [facility] [place] [facility] [address] [id number] [place] 2441 Apr, [facility] [place] [facility] [address] [id number] [place] [address]- 6865 Mar, [facility] [place] [facility] [address] [id number] [place] [address]- 5093 Mar, [facility] [place] [facility] [address] [id number] [place] [address]- 5023 Mar, [facility] [place] [facility] [address] [id number] [place] [address]- 6447 Mar, [facility] [place] [facility] [address] [id number] [place] [address]- 5766 Feb, [facility] [place] [facility] [address] [id number] [place] [address]- 9211 Feb, [facility] [place] [facility] [address] [id number] [place] [address]- 8360 18 Feb, 2014 [facility] [place] [facility] [address] [id number] [place] [address]- 2277 18 Feb, 2014 [facility] [place] [facility] [address] [id number] [place] [address]- 5457 16 Feb, 2014 [facility] [place] [facility] [address] [id number] [place] [address]- 3181 16 Feb, 2014 [facility] [place] [facility] [address] [id number] [place] [address]- 8265 11 Feb, 2014 [facility] [place] [facility] [address] [id number] [place] [address]- 3160 Feb, [facility] [place] [facility] [address] [id number] [place] [address]- 0479 08 Feb, 2014 [facility] [place] [facility] [address] [id number] [place] [address]- 1180 Feb, [facility] [place] [facility] [address] [id number] [place] [address]- 8032 Feb, [facility] [place] [facility] [address] [id number] [place] [address]- 1756 Feb, [facility] [place] [facility] [address] [id number] [place] [address]- 4435 Jan, [facility] [place] [facility] [address] [id number] [place] [address]- 1360 Jan, [facility] [place] [facility] [address] [id number] [place] [address]- 6682 Dec, [facility] [place] [facility] [address] [id number] [place] [address]- 9884 Dec, [facility] [place] [facility] [address] [id number] [place] [address]- 9081 Dec, [facility] [place] [facility] [address] [id number] [place] [address]- 6779 Dec, [facility] [place] [facility] [address] [id number] [place] [address]- 6852 Dec, [facility] [place] [facility] [address] [id number] [place] [address]- 6705 Dec, [facility] [place] [facility] [address] [id number] [place] [address]- 9079 Sep, [facility] [place] [facility] [address] [id number] [place] [address]- 4058 Sep, [facility] [place] [facility] [address] [id number] [place] [address]- 8812 Sep, [facility] [place] [facility] [address] [id number] [place] [address]- 7513 Sep, [facility] [place] [facility] [address] [id number] [place] 0887 Sep, [facility] [place] [facility] [address] [id number] [place] [address]- 7284 14 Sep, 2013 [facility] [place] [facility] [address] [id number] [place] [address]- 1849 Sep, [facility] [place] [facility] [address] [id number] [place] [address]- 8437 07 Sep, 2013 [facility] [place] [facility] [address] [id number] [place] [address]- 4923 Sep, 2013 [facility] [place] [facility] [address] [id number] [place] [address]- 2790 Sep, [facility] [place] [facility] [address] [id number] [place] [address]- 6518 24 Aug, 2013 [facility] [place] [facility] [address] [id number] [place] [address]- 0698 Aug, [facility] [place] [facility] [address] [id number] [place] [address]- 9730 Aug, [facility] [place] [facility] [address] [id number] [place] [address]- 8060 Aug, [facility] [place] [facility] [address] [id number] [place] [address]- 7562 Aug, [facility] [place] [facility] [address] [id number] [place] [address]- 2621 Aug, [facility] [place] [facility] [address] [id number] [place] [address]- 6407 14 Aug, 2013 [facility] [place] [facility] [address] [id number] [place] [address]- 4233 Aug, [facility] [place] [facility] [address] [id number] [place] [address]- 2664 Aug, [facility] [place] [facility] [address] [id number] [place] [address]- 7660 05 Aug, 2013 [facility] [place] [facility] [address] [id number] [place] [address]- 5729 Aug, [facility] [address] [id number] [place] [address]- 2660 Aug, [facility] [place] [facility] [address] [id number] [place] [address]- 1082 Aug, [facility] [place] [facility] [address] [id number] [place] [address]- 1547 July, [facility] [place] [facility] [address] [id number] [place] [address]- 1716 July, [facility] [place] [facility] [address] [id number] [place] [address]- 9047 July, [facility] [place] [facility] [address] [id number] [place] [address]- 1095 July, [facility] [address] [id number] [place] [address]- 7813 July, [facility] [place] [facility] [address] [id number] [place] [address]- 0739 July, [facility] [place] [facility] [address] [id number] [place] [address]- 2021 July, [facility] [place] [facility] [address] [id number] [place] [address]- 5646 Jun, [facility] [place] [facility] [address] [id number] [place] [address]- 3694 Jun, [facility] [place] [facility] [address] [id number] [place] [address]- 4390 18 Jun, 2013 [facility] [place] [facility] [address] [id number] [place] [address]- 2251 Jun, [facility] [place] [facility] [address] [id number] [place] [address]- 0555 Jun, [facility] [place] [facility] [address] [id number] [place] [address]- 5687 Jun, [facility] [place] [facility] [address] [id number] [place] [address]- 0194 08 Jun, 2013 [facility] [place] [facility] [address] [id number] [place] [address]- 2484 17 May, 2013 [facility] [place] [facility] [address] [id number] [place] [address]- 8126 17 May, 2013 [facility] [place] [facility] [address] [id number] [place] [address]- 7919 14 May, 2013 [facility] [place] [facility] [address] [id number] [place] [address]- 6750 14 May, 2013 [facility] [place] [facility] [address] [id number] [place] [address]- 0305 13 May, 2013 [facility] [place] [facility] [address] [id number] [place] [address]- 5034 13 May, 2013 [facility] [place] [facility] [address] [id number] [place] [address]- 3425 10 May, 2013 [facility] [place] [facility] [address] [id number] [place] [address]- 1395 10 May, 2013 [facility] [place] [facility] [address] [id number] [place] [address]- 9369 07 May, 2013 [facility] [place] [facility] [address] [id number] [place] [address]- 9168 26 Apr, 2013 [facility] [place] [facility] [address] [id number] [place] [address]- 2780 26 Apr, 2013 [facility] [place] [facility] [address] [id number] [place] [address]- 4986 18 Apr, 2013 [facility] [place] [facility] [address] [id number] [place] [address]- 3391 15 Apr, 2013 [facility] [place] [facility] [address] [id number] [place] 9250 15 Apr, 2013 [facility] [place] [facility] [address] [id number] [place] [address]- 3607 Apr, [facility] [place] [facility] [address] [id number] [place] [address]- 8166 Apr, [facility] [place] [facility] [address] [id number] [place] [address]- 1976 Apr, [facility] [place] [facility] [address] [id number] [place] [address]- 7966 Apr, [facility] [place] [facility] [address] [id number] [place] [address]- 2307 Apr, [facility] [place] [facility] [address] [id number] [place] [address]- 0704 Mar, [facility] [place] [facility] [address] [id number] [place] [address]- 3027 Mar, [facility] [place] [facility] [address] [id number] [place] [address]- 1761 Mar, [facility] [place] [facility] [address] [id number] [place] [address]- 8576 Mar, [facility] [place] [facility] [address] [id number] [place] [address]- 5007 Mar, [facility] [place] [facility] [address] [facility] [id number] [place] [address]- 3903 Mar, [facility] [place] [facility] [address] [id number] [place] [address]- 5545 Mar, [facility] [place] [facility] [address] [id number] [place] [address]- 6681 Mar, [facility] [place] [facility] [address] [id number] [place] [address]- 5160 Feb, [facility] [place] [facility] [address] [id number] [place] [address]- 6143 Feb, [facility] [place] [facility] [address] [id number] [place] [address]- 7394 Jan, [facility] [place] [facility] [address] [id number] [place] [address]- 7269 18 Jan, 2013 [facility] [place] [facility] [address] [id number] [place] [address]- 0494 15 Jan, 2013 [facility] [place] [facility] [address] [id number] [place] [address]- 8660 15 Jan, 2013 [facility] [place] [facility] [address] [id number] [place] [address]- 9365 Jan, [facility] [place] [facility] [address] [id number] [place] [address]- 2723 Jan, [facility] [place] [facility] [address] [id number] [place] [address]- 7102 Jan, [facility] [place] [facility] [address] [id number] [place] [address]- 6814 Jan, [facility] [place] [facility] [address] [id number] [place] [address]- 0365 Dec, [facility] [place] [facility] [address] [id number] [place] [address]- 8556 Dec, [facility] [place] [facility] [address] [id number] [place] [address]- 8002 10 Dec, 2012 [facility] [place] [facility] [address] [id number] [place] [address]- 6570 20 Nov, 2012 [facility] [place] [facility] [address] [id number] [place] [address]- 7454 13 Nov, 2012 [facility] [place] [facility] [address] [id number] [place] [address]- 8764 12 Nov, 2012 [facility] [place] [facility] [address] [id number] [place] [address]- 2497 09 Sep2012 [facility] [place] [facility] [address] [id number] [place] [address]- 5201 06 Sep, 2012 [facility] [place] [facility] [address] [id number] [place] [address]- 7426 Nov, [facility] [place] [facility] [address] [id number] [place] [address]- 0012 Oct, [facility] [place] [facility] [address] [id number] [place] [address]- 6494 Oct, [facility] [place] [facility] [address] [id number] [place] [address]- 4776 Sep, [facility] [place] [facility] [address] [id number] [place] [address]- 9346 Sep, [facility] [place] [facility] [address] [id number] [place] [address]- 5299 Sep, [facility] [place] [facility] [address] [id number] [place] [address]- 5321 Sep, [facility] [place] [facility] [address] [id number] [place] [address]- 1850 Sep, [facility] [place] [facility] [address] [id number] [place] [address]- 6563 Sep, [facility] [place] [facility] [address] [id number] [place] [address]- 9525 Sep, [facility] [place] [facility] [address] [id number] [place] [address]- 2257 Aug, [facility] [place] [facility] [address] [id number] [place] [address]- 5894 14 Aug, 2012 [facility] [place] [facility] [address] [id number] [place] [address]- 1676 Aug, [facility] [place] [facility] [address] [id number] [place] [address]- 0275 Aug, [facility] [place] [facility] [address] [id number] [place] [address]- 4675 Aug, [facility] [place] [facility] [address] [id number] [place] [address]- 3914 Aug, [facility] [place] [facility] [address] [id number] [place] [address]- 8288 July, [facility] [address] [id number] [place] [address]- 6985 July, [facility] [address] [id number] [place] [address]- 2816 July, [facility] [address] [id number] [place] [address]- 5310 July, [facility] [address] [id number] [place] [address]- 5655 July, [facility] [address] [id number] [place] [address]- 1197 July, [facility] [address] [id number] [place] [address]- 5701 Jun, [facility] [address] [id number] [place] [address]- 7449 Jun, [facility] [address] [id number] [place] [address]- 8528 Jun, [facility] [address] [id number] [place] [address]- 6638 Jun, [facility] [address] [id number] [place] [address]- 2215 Jun, [facility] [address] [id number] [place] [address]- 3710 Jun, [facility] [address] [id number] [place] [address]- 2672 Jun, [facility] [address] [id number] [place] [address]- 0680 May, [facility] [address] [id number] [place] [address]- 2546 May, [facility] [address] [id number] [place] [address]- 6245 Apr, [facility] [address] [id number] [place] [address]- 3956 Apr, [facility] [place] [facility] [address] [id number] [place] [address]- 3246 Apr, [facility] [place] [facility] [address] [id number] [place] [address] Apr, [facility] [place] [facility] [address] [id number] [place] [address] Apr, [facility] [place] [facility] [address] [id number] [place] [address] 08 Apr, 2012 [facility] [place] [facility] [address] [id number] [place] [address] 07 Apr, 2012 [facility] [place] [facility] [address] [id number] [place] [address] 07 Apr, 2012 [facility] [place] [facility] [address] [id number] [place] [address] 06 Apr, 2012 [facility] [place] [facility] [address] [id number] [place] [address] 06 Apr, 2012 [facility] [place] [facility] [address] [id number] [place] [address] Apr, [facility] [place] [facility] [address] [id number] [place] [address] Mar, [facility] [place] [facility] [address] [id number] [place] [address] Mar, [facility] [place] [facility] [address] [id number] [place] [address] Mar, [facility] [place] [facility] [address] [id number] [place] [address] Mar, [facility] [place] [facility] [address] [id number] [place] [address] Mar, [facility] [place] [facility] [address] [id number] [place] [address] 15 Mar, 2012 [facility] [address] [id number] [place] [address] 15 Mar, 2012 [facility] [address] [id number] [place] [address] 15 Mar, 2012 [facility] [address] [id number] [place] [address] 09 Mar, 2012 [facility] [address] [id number] [place] [address] Mar, [facility] [address] [id number] [place] [address] Mar, [facility] [address] [id number] [place] [address]681 Mar, [facility] [address] [id number] [place] [address] 96[address] Mar, [facility] [address] [id number] [place] [address] Feb, [facility] [address] [id number] [place] [address] Feb, [facility] [address] [id number] [place] [address] 18 Feb, 2012 [facility] [address] [id number] [place] [address] 18 Feb, 2012 [facility] [address] [id number] [place] [address] 25[address] Feb, [facility] [address] [id number] [place] [address] Feb, [facility] [address] [id number] [place] [address] Feb, [facility] [address] [id number] [place] [address] Feb, [facility] [place] [facility] [address] [id number] [place] [address] Feb, [facility] [place] [facility] [address] [id number] [place] [address] Feb, [facility] [place] [facility] [address] [id number] [place] [address] Feb, [facility] [place] [facility] [address] [id number] [place] [address] Feb, [facility] [place] [facility] [address] [id number] [place] [address] Feb, [facility] [place] [facility] [address] [id number] [place] [address] Feb, [facility] [place] [facility] [address] [facility] [id number] [place] [address] Feb, [facility] [place] [facility] [address] [id number] [place] [address] Jan, [facility] [place] [facility] [address] [id number] [place] [address] 137[address] Jan, [facility] [place] [facility] [address] [facility] [id number], [place] [address] Jan, [facility] [place] [facility] [address] [id number], [place] [address] Jan, [facility] [place] [facility] [address] [id number], [place] [address] Dec, [facility] [place] [facility] [address] [id number] [place] [address] 2004 Dec, [facility] [place] [facility] [address] [id number], [place] [address] Dec, [facility] [place] [facility] [address] [id number] [place] [address] Dec, [facility] [place] [facility] [address] [id number] [place] [address] 25 Dec, 2011 [facility] [place] [facility] [address] [id number] [place] [address] 1718 25 Dec, 2011 [facility] [place] [facility] [address] [id number] [place] [address] 4[address] 16 Dec, 2011 [facility] [place] [facility] [address] [id number] [place] [address] 5626 16 Dec, 2011 [facility] [place] [facility] [address] [id number] [place] [address] 07 Dec, 2011 [facility] [place] [facility] [address] [id number] [place] [address]- 1545 04 Dec, 2011 [facility] [place] [facility] [address] [id number] [place] [address] 3974 03 Dec, 2011 [facility] [place] [facility] [address] [id number] [place] [address]- 2169 25 Sep, 2011 [facility] [place] [facility] [address] [id number] [place] [address]- [address]382 24 Sep, 2011 [facility] [place] [facility] [address] [id number] [place] [address] 20 Sep, 2011 [facility] [place] [facility] [address] [facility] [id number] [place] [address] 19 Sep, 2011 [facility] [place] [facility] [address] [id number] [place] [address] 17 Sep, 2011 [facility] [place] [facility] [address] [id number], [place] [address] 16 Sep, 2011 [facility] [place] [facility] [address] [id number] [place] [address] 14 Sep, 2011 [facility] [place] [facility] [address] [facility] [id number] [place] [address]46 13 Sep, 2011 [facility] [place] [facility] [address] [facility] [id number], [place] [address] 12 Sep, 2011 [facility] [place] [facility] [address] [id number] [place] [address] 07 Sep, 2011 [facility] [place] [facility] [address] [id number] [place] [address] 06 Sep, 2011 [facility] [place] [facility] [address] [id number] [place] [address] 2546 06 Nov, 2011 [facility] [place] [facility] [address] [id number] [place] [address] 05 Nov, 2011 [facility] [place] [facility] [address] [id number] [place] [address] Oct, [facility] [place] [facility] [address] [id number] [place] [address] Oct, [facility] [place] [facility] [address] [id number] [place] [address] 9759 Oct, [facility] [place] [facility] [address] [id number] [place] [address] 8367 Oct, [facility] [place] [facility] [address] [id number] [place] [address] Oct, [facility] [place] [facility] [address] [id number] [place] [address] Oct, [facility] [place] [facility] [address] [id number] [place] [address] 9[address] Oct, [facility] [place] [facility] [address] [id number] [place] [address] 5263 16 Oct, 2011 [facility] [place] [facility] [address] [id number] [place] [address] 15 Oct, 2011 [facility] [place] [facility] [address] [id number] [place] [address] 2712 13 Oct, 2011 [facility] [place] [facility] [address] [id number] [place] [address] 2542 08 Oct, 2011 [facility] [place] [facility] [address] [id number] [place] [address] 4155 Sep, [facility] [place] [facility] [address] [id number] [place] [address] 9753 Sep, [facility] [place] [facility] [address] [id number] [place] [address] 7377 Sep, [facility] [place] [facility] [address] [id number] [place] [address] 3139 Sep, [facility] [place] [facility] [address] [id number] [place] [address] 7253 Sep, [facility] [place] [facility] [address] [id number] [place] [address] 4292 Sep, [facility] [place] [facility] [address] [id number] [place] [address] 6798 Aug, [facility] [place] [facility] [address] [id number] [place] [address] July, [facility] [place] [facility] [address] [id number] [place] [address] 6385 July, [facility] [place] [facility] [address] [id number] [place] [address] 9246 Jun, [facility] [place] [facility] [address] [id number] [place] [address] 3645 Jun, [facility] [place] [facility] [address] [id number] [place] [address] 2753 Jun, [facility] [place] [facility] [address] [id number] [place] [address] 3111 Jun, [facility] [place] [facility] [address] [id number] [place] [address] 1265 Jun, [facility] [place] [facility] [address] [id number] [place] [address] 1407 Jun, [facility] [place] [facility] [address] [id number] [place] [address]120 Jun, [facility] [place] [facility] [address] [id number] [place] [address] 0418 08 Jun, 2011 [facility] [address] [id number] [place] [address] 76[address] 03 Jun, 2011 [facility] [place] [facility] [address] [id number] [place] [address] Jun, [facility] [place] [facility] [address] [id number] [place] [address] 0666 Jun, [facility] [place] [facility] [address] [id number] [place] [address] 1663 19 May, 2011 [facility] [place] [facility] [address] [id number] [place] [address] 7947 16 May, 2011 [facility] [place] [facility] [address] [id number] [place] [address]- 4582 14 May, 2011 [facility] [place] [facility] [address] [facility] [id number] [place] [address] 2662 06 May, 2011 [facility] [address] [id number] [place] [address] 7745 28 Apr, 2011 [facility] [place] [facility] [address] [id number] [place] [address] 2517 28 Apr, 2011 [facility] [address] [id number] [place] [address] 27 Apr, 2011 [facility] [place] [facility] [address] [facility] [id number] [place] [address] 1067 Apr, [facility] [place] [facility] [address] [id number] [place] [address] 2549 Apr, [facility] [place] [facility] [address] [id number] [place] [address] 7859 Apr, [facility] [place] [facility] [address] [facility] [id number] [place] [address] 3921 Apr, [facility] [place] [facility] [address] [id number] [place] [address] 8670 Apr, [facility] [address] [id number] [place] [address] 3305 Mar, [facility] [place] [facility] [address] [id number] [place] [address] 2386 Mar, [facility] [place] [facility] [address] [id number] [place] [address] 2216 Mar, [facility] [place] [facility] [address] [id number] [place] [address] 9542 Mar, [facility] [place] [facility] [address] [id number] [place] [address]- 5255 Mar, [facility] [place] [facility] [address] [id number] [place] [address]- 2212 Mar, [facility] [place] [facility] [address] [id number] [place] [address] 3857 Mar, [facility] [place] [facility] [address] [id number] [place] [address] 0537 Mar, [facility] [place] [facility] [address] [id number] [place] [address]- 0876 Mar, [facility] [place] [facility] [address] [id number] [place] [address] 9812 Mar, [facility] [place] [facility] [address] [id number], [place] [address] 6648 Mar, [facility] [place] [facility] [address] [id number], [place] [address] 3165 Mar, [facility] [place] [facility] [address] [id number] [place] [address]- 2580 Mar, [facility] [place] [facility] [address] [id number], [place] [address]- 7638 Mar, [facility] [place] [facility] [address] [id number] [place] [address]- 3546 Mar, [facility] [place] [facility] [address] [id number] [place] [address]- 5079 Mar, [facility] [address] [id number] [place] [address] 9195 Feb, [facility] [place] [facility] [address] [id number] [place] [address] Feb, [facility] [address] [id number] [place] [address] 5885 Feb, [facility] [place] [facility] [address] [id number] [place] [address]- 6865 Jan, [facility] [address] [id number] [place] [address]- 5074 Jan, [facility] [place] [facility] [address] [id number] [place] [address]- 5931 Jan, [facility] [address] [id number] [place] [address]- 7102 Dec, [facility] [place] [facility] [address] [id number] [place] [address]- 6698 Dec, [facility] [place] [facility] [address] [id number] [place] [address]- 9346 Nov, [facility] [place] [facility] [address] [id number] [place] [address]- 0324 Oct, [facility] [place] [facility] [address] [id number] [place] [address]- 8110 Oct, [facility] [place] [facility] [address] [id number] [place] [address]- 6723 Oct, [facility] [place] [facility] [address] [id number] [place] [address]- 1033 Sep, [facility] [place] [facility] [address] [id number] [place] [address]- 0833 16 Apr, 2010 [facility] [place] [facility] [address] [id number] [place] [address]- 6340 Feb, [facility] [address] [facility] [id number] [place] [address]- 4208 Jan, IMMUNIZATIONS No Known Immunizations SOCIAL HISTORY Never Assessed REASON FOR VISIT Hospital admit/DC PLAN OF CARE VITAL SIGNS MEDICATIONS Medication Instructions Dosage Frequency Start Date End Date Duration Status Topamax 100 mg Orally Twice a day 1 tablet 12h 30 Not-Taking Pantoprazole Sodium 40 mg Orally twice a day 1 tablet 12h Apr, 30 day(s) Active PredniSONE 10 mg Orally Once a day 6 tablts daily and decrease by 1 tab daily 24h Aug, Active Oxygen 2Lt by inhalation route 24 hours Not-Taking Metoprolol Tartrate 25 MG Orally 2 times a day 1/2 tablet 12h Active Abilify 15 mg Orally Once a day 1 tablet 24h Jun, 90 days Not- Taking Advair Diskus 250-50 MCG/DOSE Inhalation Twice a day 1 puff 12h Dec, 90 days Active Metamucil 43 % Orally Once a day 3.4 GM 24h May, Not-Taking Glimepiride 1 MG Orally Once a day on the days you are taking the prednsone 1 tablet with breakfast or the first main meal of the day Mar, 30 day(s) Active Neurontin 300 MG Orally Three times a day-repository 1 capsule Dec, Not-Taking Ipratropium-Albuterol 0.5-2.5 (3) MG/3ML Inhalation Four times a day 3 ml as needed for Shortness of breath 6h Active Cymbalta 60 mg Orally Once a day 2 capsule 24h Feb, 90 days Not-Taking Spiriva HandiHaler 18 MCG Inhalation Once a day 1 capsule 24h 90 days Active Loperamide HCl 2 MG Orally Four times a day 1 capsule as needed 6h Active Sucralfate 1 GM Orally AC and HS 1 tablet at bedtime on an empty stomach before meals Active Trulicity 0.75 MG/0.5ML Subcutaneous once weekly Inject 0.5 ml Jun, 90 days Active Ventolin HFA 108 (90 Base) MCG/ACT Inhalation every 4 hours 2 puffs as needed for short of breath or wheeze 4h 90 days Active Multivitamin Adult - Orally Once a day 24h Not-Taking RESULTS No Results PROCEDURES No Known procedures [...] 2/2 Benzos OD, pneumonia MRSA, [facility], Hypokalemia-- [facility] 12/20/2015 Hospitalization History COPD exacerbation, Asthma-[facility] 09/21/16 Hospitalization History COPD-[facility] 12/30/2016 Hospitalization History OS and orange for inpatient-last around 2006 or so. Hospitalization History for COPD x2 Mar 2017 Hospitalization History Upper GI bleed at apr 2017 Hospitalization History [facility]- COPD Exacerbation, diarrhea 05/23/2017 Hospitalization History COPD exacerbation-[facility] 06/13/17 Hospitalization History CHF 09/09/2017
--- OUTSIDE RECORDS SUMMARY | 2017-11-19 13:28 | XMS REPORT ---
Author Author ALIZA CARTER [facility] Address [address] [place] [address] Care Team Providers [employer] Name Role Phone ALIZA CARTER Unavailable PROBLEMS Type Condition ICD9-CM Code [id number] Code Onset Dates Condition Status SNOMED Code Problem Bipolar disorder with depression F31.30 Active 69098898 Problem Other emphysema J43.8 Active 67083209 Problem Migraine without aura and without status migrainosus, not intractable G43.009 Active 614340290 Problem Anxiety F41.9 Active 72058244 Problem COPD with exacerbation J44.1 Active 566173209 Problem Methamphetamine use disorder, moderate, 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 Active 31775400 Problem Chronic bronchitis, unspecified chronic bronchitis type J42 Active 77231986 Problem Intractable cyclical vomiting with nausea G43.A1 Active 04258120 Problem Diabetes E11.9 Active 900393240 Problem 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 Active Problem Tobacco abuse Z72.0 Active 89370191 Problem Examination of eyes and vision V72.0 Active 337712136 Problem Chronic constipation K59.09 Active 961058468 Problem Memory loss R41.3 Active 53517784 Problem Migraine G43.909 Active 79389866 Problem Bipolar disorder, unspecified F31.9 Active 88787604 Problem TMJ (sprain of temporomandibular joint) S03.4XXA Active 70103160 Problem Generalized anxiety disorder F41.1 Active 53123933 ALLERGIES No Information ENCOUNTERS Encounter Location Date Diagnosis [facility] [id number] [address] Oct, [facility] [address] [address] Oct, [facility] [address] [address] Oct, Thrush B37.0 [facility] [address] [address] Sep, COPD with exacerbation J44.1 and Anxiety F41.9 [facility] [address] [address] 6[address] Sep, [facility] [id number] [place] [address] 22273- 4005 Sep, [facility] [address] [address] 1782 Sep, [facility] [id number] [place] [address] 30245- 2201 Sep, Acute congestive heart failure, unspecified heart failure type I50.9 and Anxiety disorder, unspecified F41.9 [facility] [id number] [address] Sep, Heart failure, unspecified HF chronicity, unspecified heart failure type I50.9 [facility] [address] [address] Sep, [facility] [address] [address] Aug, Chronic obstructive pulmonary disease with acute exacerbation J44.1 [facility] [address] [address] 94[address] Aug, [facility] [address] [address] 2987 Aug, [facility] [address] [address] 3901 July, [facility] [address] [address] July, [facility] [address] [address] 4835 July, Diabetes E11.9 and Chronic obstructive pulmonary disease with acute exacerbation J44.1 [facility] [id number] [place] [address] 90199- 9238 Jun, Chronic obstructive pulmonary disease with acute exacerbation J44.1 ; Diabetes E11.9 and Tobacco abuse Z72.0 [facility] [id number] [place] [address] 34526- 2630 Jun, [facility] [id number] [place] [address] 42266- 2558 Jun, [facility] [id number] [place] [address] 34816- 0410 May, [facility] [id number] [place] [address] 24212- 8936 May, [facility] [id number] [place] [address] 64457 -2699 17 May, 2017 [facility] [id number] [place] [address] 07381- 7409 16 May, 2017 [facility] [id number] [place] [address] 85412- 7200 15 May, 2017 [facility] [id number] [place] [address] 26655- 9971 14 May, 2017 Diarrhea, unspecified type R19.7 and Intractable cyclical vomiting with nausea G43.A1 [facility] [id number] [place] [address] 70468- 3740 May, [facility] [id number] [place] [address] 86828- 2927 05 May, 2017 [facility] [id number] [place] [address] 73120- 8649 28 Apr, 2017 COPD exacerbation J44.1 ; Esophageal candidiasis B37.81 ; Other acute gastritis with hemorrhage K29.01 and Acute posthemorrhagic anemia D62 [facility] [id number] [place] [address] 61920- 7878 Apr, Viral illness B34.9 and COPD exacerbation J44.1 [facility] [id number] [place] [address] 02898 -6979 Apr, Shortness of breath R06.02 and Pneumonia of both lower lobes due to infectious organism J18.9 [facility] [id number] [place] [address] 92776 -5924 Mar, COPD with acute exacerbation J44.1 [facility] [facility] [id number] [place] [address] 90812- 9322 Mar, Chronic obstructive pulmonary disease with acute exacerbation J44.1 and Diabetes E11.9 [place] [address] 67[address]- 9613 Mar, [place] [address] 59408- 1023 Mar, [facility] [id number] [place] [address] 26141 -9132 Mar, COPD exacerbation J44.1 [facility] [facility] [id number] [place] [address] 73007- 2055 Mar, [facility] [id number] [place] [address] 38350- 2531 Mar, Migraine G43.909 ; Hypokalemia E87.6 and Type 2 diabetes mellitus without complications E11.9 [facility] [id number] [place] [address] 63279- 2196 Feb, [facility] [facility] [id number] [place] [address] 68689- 6923 Feb, [facility] [facility] [id number] [place] [address] 08929- 0278 Feb, Methamphetamine use disorder, moderate, 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 ; Major depressive disorder, recurrent, moderate F33.1 ; Anxiety disorder, unspecified F41.9 and Tobacco abuse Z72.0 [place] [id number] [place] [address] 42151- 6796 30 Jan, 2017 Major depressive disorder, recurrent, moderate F33.1 [facility] [id number] [place] [address] 63661- 4559 16 Jan, 2017 [facility] [id number] [place] [address] 80194- 8236 14 Jan, 2017 [facility] [address] 50681- 8044 Jan, Major depressive disorder, recurrent, moderate F33.1 [place] [id number] [place] [address] 156964- 6585 Jan, Major depressive disorder, recurrent, moderate F33.1 ; Anxiety disorder, unspecified F41.9 ; Methamphetamine use disorder, moderate, 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 and Tobacco abuse Z72.0 [place] [id number] [place] [address] 69530- 5328 07 Jan, 2017 [facility] [id number] [place] [address] 44797- 1532 06 Jan, 2017 Chronic obstructive pulmonary disease with acute exacerbation J44.1 and Diabetes E11.9 [facility] [id number] [place] [address] 31571- 3257 06 Jan, 2017 [place] [facility] [id number] [place] [address] 90732- 0997 Jan, [facility] [id number] [place] [address] 60823- 1743 Dec, Acute respiratory failure with hypoxia J96.01 ; Chronic bronchitis, unspecified chronic bronchitis type J42 and Tobacco use Z72.0 [place] [id number] [place] [address] 98772- 5117 Dec, [facility] [id number] [place] [address] [id number] Nov, Dental caries K02.9 and Dental examination Z01.20 [place] [address] [address]- 2993 Nov, Major depressive disorder, recurrent, moderate F33.1 ; Anxiety disorder, unspecified F41.9 and 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 [facility] [address] [id number] Oct, Dental examination Z01.20 [facility] [id number] [place] [address] 01052- 9155 Oct, [facility] [id number] [place] [address] 78385- 3408 Oct, Diabetes E11.9 and Thrush B37.0 [facility] [id number] [place] [address] 18913- 4788 Oct, [facility] [id number] [place] [address] 57227- 0495 Oct, [facility] [id number] [place] [address] 25199- 2278 Oct, [facility] [id number] [place] [address] 11267- 3656 Sep, Major depressive disorder, recurrent, moderate F33.1 ; Anxiety disorder, unspecified F41.9 and Bipolar disorder, unspecified F31.9 [facility] [id number] [place] [address] 20277- 0628 Sep, Acute exacerbation of chronic obstructive pulmonary disease (COPD) J44.1 and Migraine G43.909 [facility] [id number] [place] [address] 14386- 8636 Sep, [facility] [id number] [place] [address] [id number] Sep, [facility] [address] [address]- 4748 Sep, Acute exacerbation of chronic obstructive pulmonary disease (COPD) J44.1 [facility] [address] [address]17 15 Sep, 2016 Acute exacerbation of chronic obstructive pulmonary disease (COPD) J44.1 [facility] [id number] [place] [address] 52048- 8551 Aug, [facility] [id number] [place] [address] 85054- 2380 20 Aug, 2016 Major depressive disorder, recurrent, moderate F33.1 ; Anxiety disorder, unspecified F41.9 and 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 [facility] [id number] [place] [address] 43073- 5844 19 Aug, 2016 Wheezing R06.2 ; Non morbid obesity due to excess calories E66.09 ; Migraine without aura and without status migrainosus, not intractable G43.009 and Tobacco abuse Z72.0 [facility] [id number] [place] [address] [id number] 14 Aug, 2016 Encounter for dental examination Z01.20 [facility] [id number] [place] [address] 14778- 0969 02 Aug, 2016 Major depressive disorder, recurrent, moderate F33.1 ; Anxiety disorder, unspecified F41.9 and 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 [facility] [address] [address]- 3040 July, [facility] [id number] [place] [address] 59805- 7018 July, [facility] [id number] [place] [address] 07809- 6157 July, [facility] [id number] [place] [address] 70213- 0752 July, Diabetes E11.9 [facility] [id number] [place] [address] 60149- 5167 Jun, Major depressive disorder, recurrent, moderate F33.1 [place] [id number] [place] [address] 09161- 1278 Jun, Major depressive disorder, recurrent, moderate F33.1 ; 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 ; Generalized anxiety disorder F41.1 and Bipolar disorder, unspecified F31.9 [facility] [address] 57742- 1809 Jun, Diabetes E11.9 ; Migraine G43.909 ; Thrush B37.0 and Wheezing R06.2 [facility] [id number] [place] [address] [id number] Jun, Dental examination Z01.20 [facility] [address] 31532- 5266 Jun, [facility] [address] 94753- 8051 Jun, Major depressive disorder, recurrent, moderate F33.1 ; Anxiety disorder, unspecified F41.9 and 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 [facility] [id number] [place] [address] 14714- 9726 Jun, [facility] [id number] [place] [address] 74250- 7269 Jun, Wheezing R06.2 [facility] [address] [id number] Jun, Dental caries K02.9 [facility] [address] 08384- 9986 Jun, Major depressive disorder, recurrent, moderate F33.1 ; Anxiety disorder, unspecified F41.9 and 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 [facility] [id number] [place] [address] 66926- 0872 Jun, RLQ abdominal pain R10.31 ; Diabetes E11.9 ; Obesity, unspecified obesity severity, unspecified obesity type E66.9 ; Wheezing R06.2 and Abnormal urinalysis R82.90 [facility] [id number] [place] [address] 72255- 9259 May, [facility] [id number] [place] [address] 65948- 3632 May, Well woman exam Z01.419 ; Breast cancer screening Z12.39 ; Cervical cancer screening Z12.4 ; Urinary frequency R35.0 ; Edema, unspecified type R60.9 and Chronic constipation K59.09 [facility] [id number] [place] [address] 75881- 0144 May, Major depressive disorder, recurrent, moderate F33.1 ; Anxiety disorder, unspecified F41.9 and 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 [facility] [id number] [place] [address] [id number] May, Dental examination Z01.20 [facility] [id number] [place] [address] 10297- 6075 May, [facility] [id number] [place] [address] 43095- 6320 May, [facility] [id number] [place] [address] 85439- 6506 May, Chronic constipation K59.09 [facility] [id number] [place] [address] 19462- 6411 Apr, [facility] [id number] [place] [address] 84673- 0949 Apr, Major depressive disorder, recurrent, moderate F33.1 ; Anxiety disorder, unspecified F41.9 and 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 [facility] [id number] [place] [address] 99151- 8860 Apr, [facility] [id number] [place] [address] 14156- 3580 Mar, Major depressive disorder, recurrent, moderate F33.1 [place] [id number] [place] [address] 53019- 3317 Mar, Major depressive disorder, recurrent, moderate F33.1 ; Generalized anxiety disorder F41.1 and Bipolar I disorder, most recent episode depressed with anxious distress F31.30 [place] [id number] [place] [address] 17827- 1096 Mar, Diabetes E11.9 ; Non morbid obesity due to excess calories E66.09 ; Breast cancer screening Z12.39 and Encounter for immunization Z23 [place] [id number] [place] [address] 72012- 0490 Mar, Major depressive disorder, recurrent, moderate F33.1 ; Anxiety disorder, unspecified F41.9 and 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 [place] [id number] [place] [address] 13428- 4740 Mar, [place] [id number] [place] [address] 97881- 5336 Feb, Major depressive disorder, recurrent, moderate F33.1 ; Anxiety disorder, unspecified F41.9 and 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 [place] [id number] [place] [address] 65993- 0158 Feb, [place] [id number] [place] [address] 91252- 7073 Feb, [place] [id number] [place] [address] 05017- 1397 Jan, Major depressive disorder, recurrent, moderate F33.1 ; Generalized anxiety disorder F41.1 and Bipolar disorder, current episode depressed, severe, without psychotic features F31.[address] [place] [address] 60378- 6565 18 Jan, 2016 Major depressive disorder, recurrent, moderate F33.1 ; Anxiety disorder, unspecified F41.9 and 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 [facility] [address] [address]- 9150 16 Jan, 2016 Bronchitis J40 [facility] [id number] [place] [address] 16566- 9785 15 Jan, 2016 [facility] [id number] [place] [address] 14124- 3261 Jan, [facility] [id number] [place] [address] 86919- 2672 Jan, Elbow injury, right, initial encounter S59.901A ; Multiple contusions T14.8 and Cervical strain, acute, initial encounter S16.1XXA [facility] [id number] [place] [address] 37332- 4729 Dec, Major depressive disorder, recurrent, moderate F33.1 ; Generalized anxiety disorder F41.1 and Bipolar disorder with depression F31.30 [facility] [id number] [place] [address] 05696- 0516 Dec, [facility] [id number] [place] [address] 37798- 8871 Dec, [facility] [id number] [place] [address] 58384- 2306 Dec, [facility] [id number] [place] [address] 27063- 7155 Dec, [facility] [id number] [place] [address] 17025- 7385 Dec, Yeast infection B37.9 [facility] [id number] [place] [address] 31307- 3828 Dec, Pneumonia of both lungs due to methicillin resistant Staphylococcus aureus (MRSA), unspecified part of lung J15.212 and Benzodiazepine overdose, accidental or unintentional, subsequent encounter T42.4X1D [facility] [id number] [place] [address] 50632- 6667 Dec, [place] [id number] [place] [address] 61093- 0596 Dec, [place] [address] 54394- 1090 Dec, Knee pain, left M25.562 and Edema, unspecified type R60.9 [place] [id number] [place] [address] 97915- 0259 Dec, [place] [id number] [place] [address] 96331- 8736 Dec, Anxiety disorder, unspecified F41.9 and Bipolar disorder, unspecified F31.9 [place] [id number] [place] [address] 91068- 2089 Nov, Major depressive disorder, recurrent, moderate F33.1 ; Anxiety disorder, unspecified F41.9 and 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 [place] [id number] [place] [address] 69258- 1245 Nov, [place] [id number] [place] [address] 79089- 9798 Nov, Migraine without aura and without status migrainosus, not intractable G43.009 [place] [id number] [place] [address] 94555- 7268 Nov, Migraine G43.909 [place] [id number] [place] [address] 71646- 7015 Nov, [facility] [id number] [place] [address] 23139- 5984 Nov, Major depressive disorder, recurrent, moderate F33.1 ; Anxiety disorder, unspecified F41.9 and 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 [place] [id number] [place] [address] 46848- 0666 Oct, Chronic constipation K59.09 and Obesity, unspecified obesity severity, unspecified obesity type E66.9 [place] [id number] [place] [address] 55714- 5241 Oct, Obesity, unspecified obesity severity, unspecified obesity type E66.9 ; Chronic constipation K59.09 and Anxiety disorder, unspecified F41.9 [place] [id number] [place] [address] 76521- 1979 Oct, [place] [id number] [place] [address] 34428- 2497 Sep, Diabetes E11.9 ; Edema, unspecified type R60.9 ; Varicose vein of leg I83.90 and Obesity, unspecified obesity severity, unspecified obesity type E66.9 [place] [id number] [place] [address] 34274- 4423 Sep, Edema, unspecified type R60.9 ; Diabetes E11.9 and Knee pain , left M25.562 [place] [id number] [place] [address] 45785- 4780 Sep, [place] [id number] [place] [address] 37876- 4829 Sep, [place] [id number] [place] [address] 95151- 4402 Sep, Major depressive disorder, recurrent, moderate F33.1 ; Generalized anxiety disorder F41.1 and Bipolar disorder, unspecified F31.9 [place] [id number] [place] [address] 20770- 8528 Aug, Chondromalacia of left knee M94.262 [place] [id number] [place] [address] 46688- 6629 Aug, Major depressive disorder, recurrent, moderate F33.1 ; Anxiety disorder, unspecified F41.9 and 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 [place] [id number] [place] [address] [id number] Aug, [facility] [id number] [place] [address] [phone] Aug, Osteoarthritis of left knee M17.9 [facility] [id number] [place] [address] [id number] Aug, [facility] [id number] [place] [address] [phone] [id number] July, Major depressive disorder, recurrent, moderate F33.1 ; Anxiety disorder, unspecified F41.9 and 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 [facility] [id number] [place] [place] [address] 89406- 9101 July, [facility] [id number] [place] [address] 28341- 6803 July, Chronic constipation K59.09 [facility] [id number] [place] [address] 41978- 7289 Jun, [facility] [id number] [place] [address] 10210- 7831 Jun, [facility] [id number] [place] [address] 75637- 5505 14 Jun, 2015 Osteoarthritis of left knee M17.9 [facility] [id number] [place] [address] 85465- 0423 Jun, [facility] [id number] [place] [address] 59412- 9124 Jun, Generalized anxiety disorder F41.1 ; Bipolar disorder, unspecified F31.9 and Major depressive disorder, recurrent, moderate F33.1 [facility] [id number] [place] [address] 69521- 4740 07 Jun, 2015 Migraine G43.909 [facility] [id number] [place] [address] 44940- 1641 07 Jun, 2015 Left knee pain M25.562 ; Chronic constipation K59.09 ; Dry mouth R68.2 ; Yeast vaginitis B37.3 and Memory loss R41.3 [facility] [id number] [place] [address] 84464- 7995 Jun, [facility] [id number] [place] [address] 25502- 7003 May, [facility] [id number] [place] [address] 12333- 3226 May, [place] [facility] [address] 97888- 3603 May, [facility] [id number] [place] [address] 40107- 9866 May, [facility] [id number] [place] [address] 56162- 0023 May, Acute bronchitis with COPD J44.0 ; Knee pain, left M25.562 and Encounter for tobacco use cessation counseling Z71.6 [facility] [id number] [place] [address] 21455- 5703 May, [facility] [id number] [place] [address] 13368- 0878 Apr, Diabetes E11.9 ; TMJ (sprain of temporomandibular joint) S03.4XXA ; Tobacco abuse Z72.0 ; Migraine G43.909 and Anxiety F41.9 [facility] [facility] [id number] [place] [address] 01347- 1550 Apr, Generalized anxiety disorder F41.1 and Bipolar disorder, unspecified F31.9 [facility] [facility] [id number] [place] [address] 52538- 9079 Apr, Major depressive disorder, recurrent, moderate F33.1 ; Anxiety disorder, unspecified F41.9 and 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 [facility] [facility] [id number] [place] [address] 98059- 9925 Apr, [place] [id number] [address]- 7290 Mar, [facility] [id number] [place] [address] 26162- 2208 Feb, [facility] [id number] [place] [address] 37998- 8289 Feb, Major depressive disorder, recurrent, moderate F33.1 ; Anxiety disorder, unspecified F41.9 and 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 [facility] [id number] [place] [address] 27087- 7361 Feb, [facility] [id number] [place] [address] 86940- 1860 Feb, Generalized anxiety disorder F41.1 and Bipolar disorder, unspecified F31.9 [facility] [id number] [place] [address] 57155- 7050 Jan, [facility] [id number] [place] [address] 08287- 8112 Jan, [facility] [id number] [place] [address] 77037- 4303 Jan, Bipolar disorder, unspecified F31.9 and Generalized anxiety disorder F41.1 [facility] [id number] [place] [address] 13913- 7560 Dec, [facility] [id number] [place] [address] 78590- 6307 14 Dec, 2014 Bipolar disorder, unspecified F31.9 and Generalized anxiety disorder F41.1 [facility] [id number] [place] [address] 81380- 6405 Dec, Generalized anxiety disorder F41.1 and Major depressive disorder, recurrent, moderate F33.1 [facility] [id number] [place] [address] 00108- 4654 Oct, Headache 784.0 ; Cough 786.2 ; Vomiting and diarrhea 787.03 and Dysuria 788.1 [facility] [id number] [place] [address] 42840- 7594 Aug, [facility] [id number] [place] [address] 442625- 9168 Aug, Headache 784.0 and Shortness of breath 786.05 [facility] [id number] [place] [address] 28318- 6321 Aug, [facility] [id number] [place] [address] 39974- 8591 18 Aug, 2014 Migraine 346.90 [facility] [address] 44012- 7827 Jun, [facility] [id number] [place] [address] 79476- 9590 Jun, [facility] [id number] [place] [address] 09497- 0090 May, [facility] [id number] [place] [address] 93851- 8589 May, [facility] [id number] [place] [address] 91303- 7945 May, [facility] [id number] [place] [address] 48572- 2588 May, [facility] [id number] [place] [address] 93397- 4449 May, [facility] [id number] [place] [address] 46224- 1741 May, [facility] [id number] [place] [address] 10184- 4923 Apr, [facility] [id number] [place] [address] 980474- 9536 Apr, [facility] [id number] [place] [address] 57020- 3707 Apr, 2014 [facility] [place] [facility] [address] [id number] [place] [address]- 6107 Apr, [facility] [place] [facility] [address] [id number] [place] 9692 Apr, [facility] [place] [facility] [address] [id number] [place] [address]- 9911 Mar, [facility] [place] [facility] [address] [id number] [place] [address]- 5559 Mar, [facility] [place] [facility] [address] [id number] [place] [address]- 7586 Mar, [facility] [place] [facility] [address] [id number] [place] [address]- 4196 Mar, [facility] [place] [facility] [address] [id number] [place] [address]- 4238 Feb, [facility] [place] [facility] [address] [id number] [place] [address]- 6032 Feb, [facility] [place] [facility] [address] [id number] [place] [address]- 0292 18 Feb, 2014 [facility] [place] [facility] [address] [id number] [place] [address]- 4245 18 Feb, 2014 [facility] [place] [facility] [address] [id number] [place] [address]- 4839 16 Feb, 2014 [facility] [place] [facility] [address] [id number] [place] [address]- 6247 16 Feb, 2014 [facility] [place] [facility] [address] [id number] [place] [address]- 7398 11 Feb, 2014 [facility] [place] [facility] [address] [id number] [place] [address]- 9731 Feb, [facility] [place] [facility] [address] [id number] [place] [address]- 5626 08 Feb, 2014 [facility] [place] [facility] [address] [id number] [place] [address]- 3233 Feb, [facility] [place] [facility] [address] [id number] [place] [address]- 2779 Feb, [facility] [place] [facility] [address] [id number] [place] [address]- 4356 Feb, [facility] [place] [facility] [address] [id number] [place] [address]- 1403 Jan, [facility] [place] [facility] [address] [id number] [place] [address]- 1362 Jan, [facility] [place] [facility] [address] [id number] [place] [address]- 1467 Dec, [facility] [place] [facility] [address] [id number] [place] [address]- 7348 Dec, [facility] [place] [facility] [address] [id number] [place] [address]- 0607 Dec, [facility] [place] [facility] [address] [id number] [place] [address]- 5824 Dec, [facility] [place] [facility] [address] [id number] [place] [address]- 7731 Dec, [facility] [place] [facility] [address] [id number] [place] [address]- 9959 Dec, [facility] [place] [facility] [address] [id number] [place] [address]- 4770 Sep, [facility] [place] [facility] [address] [id number] [place] [address]- 3007 Sep, [facility] [place] [facility] [address] [id number] [place] [address]- 8521 Sep, [facility] [place] [facility] [address] [id number] [place] [address]- 2833 Sep, [facility] [place] [facility] [address] [id number] [place] 9328 Sep, [facility] [place] [facility] [address] [id number] [place] [address]- 0467 14 Sep, 2013 [facility] [place] [facility] [address] [id number] [place] [address]- 4336 Sep, [facility] [place] [facility] [address] [id number] [place] [address]- 7222 07 Sep, 2013 [facility] [place] [facility] [address] [id number] [place] [address]- 8621 Sep, 2013 [facility] [place] [facility] [address] [id number] [place] [address]- 5296 Sep, [facility] [place] [facility] [address] [id number] [place] [address]- 2061 24 Aug, 2013 [facility] [place] [facility] [address] [id number] [place] [address]- 9790 Aug, [facility] [place] [facility] [address] [id number] [place] [address]- 9063 Aug, [facility] [place] [facility] [address] [id number] [place] [address]- 1660 Aug, [facility] [place] [facility] [address] [id number] [place] [address]- 4776 Aug, [facility] [place] [facility] [address] [id number] [place] [address]- 7535 Aug, [facility] [place] [facility] [address] [id number] [place] [address]- 3950 14 Aug, 2013 [facility] [place] [facility] [address] [id number] [place] [address]- 1399 Aug, [facility] [place] [facility] [address] [id number] [place] [address]- 7454 Aug, [facility] [place] [facility] [address] [id number] [place] [address]- 6544 05 Aug, 2013 [facility] [place] [facility] [address] [id number] [place] [address]- 3408 Aug, [facility] [address] [id number] [place] [address]- 9345 Aug, [facility] [place] [facility] [address] [id number] [place] [address]- 4905 Aug, [facility] [place] [facility] [address] [id number] [place] [address]- 8688 July, [facility] [place] [facility] [address] [id number] [place] [address]- 9594 July, [facility] [place] [facility] [address] [id number] [place] [address]- 8079 July, [facility] [place] [facility] [address] [id number] [place] [address]- 1052 July, [facility] [address] [id number] [place] [address]- 2294 July, [facility] [place] [facility] [address] [id number] [place] [address]- 1752 July, [facility] [place] [facility] [address] [id number] [place] [address]- 8926 July, [facility] [place] [facility] [address] [id number] [place] [address]- 9641 Jun, [facility] [place] [facility] [address] [id number] [place] [address]- 8811 Jun, [facility] [place] [facility] [address] [id number] [place] [address]- 2453 18 Jun, 2013 [facility] [place] [facility] [address] [id number] [place] [address]- 7889 Jun, [facility] [place] [facility] [address] [id number] [place] [address]- 9504 Jun, [facility] [place] [facility] [address] [id number] [place] [address]- 3817 Jun, [facility] [place] [facility] [address] [id number] [place] [address]- 8827 08 Jun, 2013 [facility] [place] [facility] [address] [id number] [place] [address]- 5788 17 May, 2013 [facility] [place] [facility] [address] [id number] [place] [address]- 5627 17 May, 2013 [facility] [place] [facility] [address] [id number] [place] [address]- 0187 14 May, 2013 [facility] [place] [facility] [address] [id number] [place] [address]- 6782 14 May, 2013 [facility] [place] [facility] [address] [id number] [place] [address]- 4316 13 May, 2013 [facility] [place] [facility] [address] [id number] [place] [address]- 3982 13 May, 2013 [facility] [place] [facility] [address] [id number] [place] [address]- 3595 10 May, 2013 [facility] [place] [facility] [address] [id number] [place] [address]- 7053 10 May, 2013 [facility] [place] [facility] [address] [id number] [place] [address]- 4184 07 May, 2013 [facility] [place] [facility] [address] [id number] [place] [address]- 1314 26 Apr, 2013 [facility] [place] [facility] [address] [id number] [place] [address]- 7208 26 Apr, 2013 [facility] [place] [facility] [address] [id number] [place] [address]- 0724 18 Apr, 2013 [facility] [place] [facility] [address] [id number] [place] [address]- 6981 15 Apr, 2013 [facility] [place] [facility] [address] [id number] [place] 3039 15 Apr, 2013 [facility] [place] [facility] [address] [id number] [place] [address]- 0056 Apr, [facility] [place] [facility] [address] [id number] [place] [address]- 9965 Apr, [facility] [place] [facility] [address] [id number] [place] [address]- 5826 Apr, [facility] [place] [facility] [address] [id number] [place] [address]- 7906 Apr, [facility] [place] [facility] [address] [id number] [place] [address]- 2719 Apr, [facility] [place] [facility] [address] [id number] [place] [address]- 6655 Mar, [facility] [place] [facility] [address] [id number] [place] [address]- 6665 Mar, [facility] [place] [facility] [address] [id number] [place] [address]- 0486 Mar, [facility] [place] [facility] [address] [id number] [place] [address]- 4507 Mar, [facility] [place] [facility] [address] [id number] [place] [address]- 5132 Mar, [facility] [place] [facility] [address] [facility] [id number] [place] [address]- 8294 Mar, [facility] [place] [facility] [address] [id number] [place] [address]- 3734 Mar, [facility] [place] [facility] [address] [id number] [place] [address]- 1264 Mar, [facility] [place] [facility] [address] [id number] [place] [address]- 4744 Feb, [facility] [place] [facility] [address] [id number] [place] [address]- 7433 Feb, [facility] [place] [facility] [address] [id number] [place] [address]- 4134 Jan, [facility] [place] [facility] [address] [id number] [place] [address]- 7467 18 Jan, 2013 [facility] [place] [facility] [address] [id number] [place] [address]- 0270 15 Jan, 2013 [facility] [place] [facility] [address] [id number] [place] [address]- 1118 15 Jan, 2013 [facility] [place] [facility] [address] [id number] [place] [address]- 1179 Jan, [facility] [place] [facility] [address] [id number] [place] [address]- 6367 Jan, [facility] [place] [facility] [address] [id number] [place] [address]- 8894 Jan, [facility] [place] [facility] [address] [id number] [place] [address]- 3451 Jan, [facility] [place] [facility] [address] [id number] [place] [address]- 8537 Dec, [facility] [place] [facility] [address] [id number] [place] [address]- 0827 Dec, [facility] [place] [facility] [address] [id number] [place] [address]- 5312 10 Dec, 2012 [facility] [place] [facility] [address] [id number] [place] [address]- 0430 20 Nov, 2012 [facility] [place] [facility] [address] [id number] [place] [address]- 8282 13 Nov, 2012 [facility] [place] [facility] [address] [id number] [place] [address]- 0639 12 Nov, 2012 [facility] [place] [facility] [address] [id number] [place] [address]- 8962 09 Sep2012 [facility] [place] [facility] [address] [id number] [place] [address]- 2077 06 Sep, 2012 [facility] [place] [facility] [address] [id number] [place] [address]- 7456 Nov, [facility] [place] [facility] [address] [id number] [place] [address]- 4007 Oct, [facility] [place] [facility] [address] [id number] [place] [address]- 1121 Oct, [facility] [place] [facility] [address] [id number] [place] [address]- 5571 Sep, [facility] [place] [facility] [address] [id number] [place] [address]- 0086 Sep, [facility] [place] [facility] [address] [id number] [place] [address]- 8070 Sep, [facility] [place] [facility] [address] [id number] [place] [address]- 0793 Sep, [facility] [place] [facility] [address] [id number] [place] [address]- 5989 Sep, [facility] [place] [facility] [address] [id number] [place] [address]- 9357 Sep, [facility] [place] [facility] [address] [id number] [place] [address]- 6473 Sep, [facility] [place] [facility] [address] [id number] [place] [address]- 6303 Aug, [facility] [place] [facility] [address] [id number] [place] [address]- 7709 14 Aug, 2012 [facility] [place] [facility] [address] [id number] [place] [address]- 2051 Aug, [facility] [place] [facility] [address] [id number] [place] [address]- 8222 Aug, [facility] [place] [facility] [address] [id number] [place] [address]- 3391 Aug, [facility] [place] [facility] [address] [id number] [place] [address]- 3622 Aug, [facility] [place] [facility] [address] [id number] [place] [address]- 9710 July, [facility] [address] [id number] [place] [address]- 2244 July, [facility] [address] [id number] [place] [address]- 1516 July, [facility] [address] [id number] [place] [address]- 7325 July, [facility] [address] [id number] [place] [address]- 2803 July, [facility] [address] [id number] [place] [address]- 9751 July, [facility] [address] [id number] [place] [address]- 0864 Jun, [facility] [address] [id number] [place] [address]- 7721 Jun, [facility] [address] [id number] [place] [address]- 9210 Jun, [facility] [address] [id number] [place] [address]- 8289 Jun, [facility] [address] [id number] [place] [address]- 5819 Jun, [facility] [address] [id number] [place] [address] Jun, [facility] [address] [id number] [place] [address] Jun, [facility] [address] [id number] [place] [address] May, [facility] [address] [id number] [place] [address] May, [facility] [address] [id number] [place] [address] Apr, [facility] [address] [id number] [place] [address] Apr, [facility] [place] [facility] [address] [id number] [place] [address] Apr, [facility] [place] [facility] [address] [id number] [place] [address] Apr, [facility] [place] [facility] [address] [id number] [place] [address] Apr, [facility] [place] [facility] [address] [id number] [place] [address] 08 Apr, 2012 [facility] [place] [facility] [address] [id number] [place] [address] 07 Apr, 2012 [facility] [place] [facility] [address] [id number] [place] [address] 07 Apr, 2012 [facility] [place] [facility] [address] [id number] [place] [address]- 110[address] 06 Apr, 2012 [facility] [place] [facility] [address] [id number] [place] [address] 06 Apr, 2012 [facility] [place] [facility] [address] [id number] [place] [address] Apr, [facility] [place] [facility] [address] [id number] [place] [address] Mar, [facility] [place] [facility] [address] [id number] [place] [address] Mar, [facility] [place] [facility] [address] [id number] [place] [address] Mar, [facility] [place] [facility] [address] [id number] [place] [address]- [address] Mar, [facility] [place] [facility] [address] [id number] [place] [address] Mar, [facility] [place] [facility] [address] [id number] [place] [address] 15 Mar, 2012 [facility] [address] [id number] [place] [address] 15 Mar, 2012 [facility] [address] [id number] [place] [address]- [address] 15 Mar, 2012 [facility] [address] [id number] [place] [address] 1987 09 Mar, 2012 [facility] [address] [id number] [place] [address] Mar, [facility] [address] [id number] [place] [address] Mar, [facility] [address] [id number] [place] [address] Mar, [facility] [address] [id number] [place] [address] Mar, [facility] [address] [id number] [place] [address] Feb, [facility] [address] [id number] [place] [address] Feb, [facility] [address] [id number] [place] [address] 18 Feb, 2012 [facility] [address] [id number] [place] [address] 18 Feb, 2012 [facility] [address] [id number] [place] [address] Feb, [facility] [address] [id number] [place] [address] 1766 Feb, [facility] [address] [id number] [place] [address] Feb, [facility] [address] [id number] [place] [address] Feb, [facility] [place] [facility] [address] [id number] [place] [address]- [address] Feb, [facility] [place] [facility] [address] [id number] [place] [address]- [address] Feb, [facility] [place] [facility] [address] [id number] [place] [address] Feb, [facility] [place] [facility] [address] [id number] [place] [address]- [address] Feb, [facility] [place] [facility] [address] [id number] [place] [address] Feb, [facility] [place] [facility] [address] [id number] [place] [address] 112[address] Feb, [facility] [place] [facility] [address] [facility] [id number] [place] [address] Feb, [facility] [place] [facility] [address] [id number] [place] [address]- [address] Jan, [facility] [place] [facility] [address] [id number] [place] [address] Jan, [facility] [place] [facility] [address] [facility] [id number] [address] Jan, [facility] [place] [facility] [address] [id number] [address] Jan, [facility] [place] [facility] [address] [id number] [place] [address] Dec, [facility] [place] [facility] [address] [id number] [place] [address]- [address] Dec, [facility] [place] [facility] [address] [id number] [address] Dec, [facility] [place] [facility] [address] [id number] [place] [address] Dec, [facility] [place] [facility] [address] [id number] [place] [address]- [address] 25 Dec, 2011 [facility] [place] [facility] [address] [id number] [place] [address]- [address] 25 Dec, 2011 [facility] [place] [facility] [address] [id number] [place] [address] 4936 16 Dec, 2011 [facility] [place] [facility] [address] [id number] [place] [address]- [address]36 16 Dec, 2011 [facility] [place] [facility] [address] [id number] [place] [address]- 98[address] 07 Dec, 2011 [facility] [place] [facility] [address] [id number] [place] [address] 04 Dec, 2011 [facility] [place] [facility] [address] [id number] [place] [address] 03 Dec, 2011 [facility] [place] [facility] [address] [id number] [place] [address] 25 Sep, 2011 [facility] [place] [facility] [address] [id number] [place] [address] 24 Sep, 2011 [facility] [place] [facility] [address] [id number] [place] [address] 20 Sep, 2011 [facility] [place] [facility] [address] [facility] [id number] [place] [address] 19 Sep, 2011 [facility] [place] [facility] [address] [id number] [place] [address] 6496 17 Sep, 2011 [facility] [place] [facility] [address] [id number] [address] 16 Sep, 2011 [facility] [place] [facility] [address] [id number] [place] [address] 14 Sep, 2011 [facility] [place] [facility] [address] [facility] [id number] [place] [address] 2546 13 Sep, 2011 [facility] [place] [facility] [address] [facility] [id number] [address] 12 Sep, 2011 [facility] [place] [facility] [address] [id number] [place] [address] 7941 07 Sep, 2011 [facility] [place] [facility] [address] [id number] [place] [address] 06 Sep, 2011 [facility] [place] [facility] [address] [id number] [place] [address] 2546 06 Nov, 2011 [facility] [place] [facility] [address] [id number] [place] [address] 4068 05 Nov, 2011 [facility] [place] [facility] [address] [id number] [place] [address] 89[address] Oct, [facility] [place] [facility] [address] [id number] [place] [address] 1727 Oct, [facility] [place] [facility] [address] [id number] [place] [address] 5814 Oct, [facility] [place] [facility] [address] [id number] [place] [address] 5547 Oct, [facility] [place] [facility] [address] [id number] [place] [address] 44[address] Oct, [facility] [place] [facility] [address] [id number] [place] [address] 2720 Oct, [facility] [place] [facility] [address] [id number] [place] [address] 27[address] Oct, [facility] [place] [facility] [address] [id number] [place] [address] 7798 16 Oct, 2011 [facility] [place] [facility] [address] [id number] [place] [address] 9779 15 Oct, 2011 [facility] [place] [facility] [address] [id number] [place] [address] 4361 13 Oct, 2011 [facility] [place] [facility] [address] [id number] [place] [address] 2541 08 Oct, 2011 [facility] [place] [facility] [address] [id number] [place] [address]66 Sep, [facility] [place] [facility] [address] [id number] [place] [address] 2848 Sep, [facility] [place] [facility] [address] [id number] [place] [address]209 Sep, [facility] [place] [facility] [address] [id number] [place] [address] 9788 Sep, [facility] [place] [facility] [address] [id number] [place] [address] 1431 Sep, [facility] [place] [facility] [address] [id number] [place] [address] 5285 Sep, [facility] [place] [facility] [address] [id number] [place] [address] 0974 Aug, [facility] [place] [facility] [address] [id number] [place] [address] 3229 July, [facility] [place] [facility] [address] [id number] [place] [address]858 July, [facility] [place] [facility] [address] [id number] [place] [address] 9225 Jun, [facility] [place] [facility] [address] [id number] [place] [address] 4513 Jun, [facility] [place] [facility] [address] [id number] [place] [address] 3107 Jun, [facility] [place] [facility] [address] [id number] [place] [address] 5345 Jun, [facility] [place] [facility] [address] [id number] [place] [address] 61[address] Jun, [facility] [place] [facility] [address] [id number] [place] [address] 4880 Jun, [facility] [place] [facility] [address] [id number] [place] [address] 4827 Jun, [facility] [place] [facility] [address] [id number] [place] [address] 7154 08 Jun, 2011 [facility] [address] [id number] [place] [address] 2947 03 Jun, 2011 [facility] [place] [facility] [address] [id number] [place] [address]- 8826 Jun, [facility] [place] [facility] [address] [id number] [place] [address] 4056 Jun, [facility] [place] [facility] [address] [id number] [place] [address] 8693 19 May, 2011 [facility] [place] [facility] [address] [id number] [place] [address]- 6200 16 May, 2011 [facility] [place] [facility] [address] [id number] [place] [address]- 0763 14 May, 2011 [facility] [place] [facility] [address] [facility] [id number] [place] [address] 1330 06 May, 2011 [facility] [address] [id number] [place] [address] 6749 28 Apr, 2011 [facility] [place] [facility] [address] [id number] [place] [address] 6145 28 Apr, 2011 [facility] [address] [id number] [place] [address]28 27 Apr, 2011 [facility] [place] [facility] [address] [facility] [id number] [place] [address] 4366 Apr, [facility] [place] [facility] [address] [id number] [place] [address] 2548 Apr, [facility] [place] [facility] [address] [id number] [place] [address] 9795 Apr, [facility] [place] [facility] [address] [facility] [id number] [place] [address] 6942 Apr, [facility] [place] [facility] [address] [id number] [place] [address] 6[address] Apr, [facility] [address] [id number] [place] [address]- 2497 Mar, [facility] [place] [facility] [address] [id number] [place] [address]- 0136 Mar, [facility] [place] [facility] [address] [id number] [place] [address]- 6596 Mar, [facility] [place] [facility] [address] [id number] [place] [address]- 4101 Mar, [facility] [place] [facility] [address] [id number] [place] [address] 4409 Mar, [facility] [place] [facility] [address] [id number] [place] [address]- 2283 Mar, [facility] [place] [facility] [address] [id number] [place] [address]- 8005 Mar, [facility] [place] [facility] [address] [id number] [place] [address]- 1595 Mar, [facility] [place] [facility] [address] [id number] [place] [address]- 7776 Mar, [facility] [place] [facility] [address] [id number] [place] [address]- 4714 Mar, [facility] [place] [facility] [address] [id number] [place] [address] 9088 Mar, [facility] [place] [facility] [address] [id number] [place] [address] 8219 Mar, [facility] [place] [facility] [address] [id number] [place] [address]- 9203 Mar, [facility] [place] [facility] [address] [id number] [address] 7306 Mar, [facility] [place] [facility] [address] [id number] [place] [address]- 8421 Mar, [facility] [place] [facility] [address] [id number] [place] [address]- 6487 Mar, [facility] [address] [id number] [place] [address]- 7829 Feb, [facility] [place] [facility] [address] [id number] [place] [address] Feb, [facility] [address] [id number] [place] [address]- 2265 Feb, [facility] [place] [facility] [address] [id number] [place] [address]- 6939 Jan, [facility] [address] [id number] [place] [address]- 7647 Jan, [facility] [place] [facility] [address] [id number] [place] [address]- 4904 Jan, [facility] [address] [id number] [place] [address]- 3674 Dec, [facility] [place] [facility] [address] [id number] [place] [address]- 2259 Dec, [facility] [place] [facility] [address] [id number] [place] [address]- 0980 Nov, [facility] [place] [facility] [address] [id number] [place] [address]- 3693 Oct, [facility] [place] [facility] [address] [id number] [place] [address]- 8544 Oct, [facility] [place] [facility] [address] [id number] [place] [address]- 2556 Oct, [facility] [place] [facility] [address] [id number] [place] [address]- 9652 Sep, [facility] [place] [facility] [address] [id number] [place] [address]- 6313 16 Apr, 2010 [facility] [place] [facility] [address] [id number] [place] [address]- 3006 Feb, [facility] [address] [facility] [id number] [place] [address] [address] Jan, IMMUNIZATIONS No Known Immunizations SOCIAL HISTORY [...] / Benzos OD, pneumonia MRSA, MAYRA, Hypokalemia-- [facility] 12/20/2015 Hospitalization History COPD exacerbation, Asthma-[facility] 09/21/16 Hospitalization History COPD-[facility] 12/30/2016 [facility]ization History [facility]-last around 2006 or so. Hospitalization History for COPD x2 Mar 2017 Hospitalization History Upper GI bleed at apr 2017 Hospitalization History [facility]- COPD Exacerbation, diarrhea 05/23/2017 Hospitalization History COPD exacerbation-[facility] 06/13/17 Hospitalization History CH[facility] 09/09/2017
--- OUTSIDE RECORDS SUMMARY | 2017-11-19 13:29 | XMS REPORT ---
Author Author RADHA CAMERON Organization [facility] Address [address] [place] [address] Care Team Providers Care Rf Engineer Name Role Phone HUMBERTOSIA CAMERON Unavailable PROBLEMS Type Condition ICD9-CM Code ECN18-HY Code Onset Dates Condition Status SNOMED Code Problem Bipolar disorder with depression F31.30 Active 02526398 Problem Other emphysema J43.8 Active 32604270 Problem Migraine without aura and without status migrainosus, not intractable G43.009 Active 504992873 Problem Anxiety F41.9 Active 00574709 Problem COPD with exacerbation J44.1 Active 934480047 Problem Methamphetamine use disorder, moderate, 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 Active 41308412 Problem Chronic bronchitis, unspecified chronic bronchitis type J42 Active 33167418 Problem Intractable cyclical vomiting with nausea G43.A1 Active 67119408 Problem Diabetes E11.9 Active 632727343 Problem 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 Active Problem Tobacco abuse Z72.0 Active 04331977 Problem Examination of eyes and vision V72.0 Active 804310290 Problem Chronic constipation K59.09 Active 822709971 Problem Memory loss R41.3 Active 79848164 Problem Migraine G43.909 Active 63089115 Problem Bipolar disorder, unspecified F31.9 Active 55708973 Problem TMJ (sprain of temporomandibular joint) S03.4XXA Active 93744047 Problem Generalized anxiety disorder F41.1 Active 09511576 ALLERGIES No Information ENCOUNTERS Encounter Location Date Diagnosis [facility] [address] [address] Oct, [facility] [address] [address] Oct, [facility] [address] [address] Oct, Thrush B37.0 [facility] [address] [address] Sep, COPD with exacerbation J44.1 and Anxiety F41.9 [facility] [address] [address] Sep, [facility] [id number] [address] 4572 Sep, [facility] [address] [address] 479[address] Sep, [facility] [id number] [place] [address] 41773- 8010 Sep, Acute congestive heart failure, unspecified heart failure type I50.9 and Anxiety disorder, unspecified F41.9 [facility] [address] [address] Sep, Heart failure, unspecified HF chronicity, unspecified heart failure type I50.9 [facility] [address] [address] 8[address] Sep, [facility] [address] [address] Aug, Chronic obstructive pulmonary disease with acute exacerbation J44.1 [facility] [address] [address] Aug, [facility] [address] [address] 5969 Aug, [facility] [address] [address] July, [facility] [address] [address] 15[address] July, [facility] [address] [address] 24[address] July, Diabetes E11.9 and Chronic obstructive pulmonary disease with acute exacerbation J44.1 [facility] [id number] [place] [address] 02276- 5706 Jun, Chronic obstructive pulmonary disease with acute exacerbation J44.1 ; Diabetes E11.9 and Tobacco abuse Z72.0 [facility] [id number] [place] [address] 75948- 3273 Jun, [facility] [id number] [place] [address] 55133- 4566 Jun, [facility] [id number] [place] [address] 37139- 3561 May, [facility] [id number] [place] [address] 74055- 1951 May, [facility] [id number] [place] [address] 21536 -5270 17 May, 2017 [facility] [id number] [place] [address] 81908- 5844 16 May, 2017 [facility] [id number] [place] [address] 68137- 0881 15 May, 2017 [facility] [id number] [place] [address] 73616- 0040 14 May, 2017 Diarrhea, unspecified type R19.7 and Intractable cyclical vomiting with nausea G43.A1 [facility] [id number] [place] [address] 14776- 1283 May, [facility] [id number] [place] [address] 18717- 9736 05 May, 2017 [facility] [id number] [place] [address] 11491- 9290 28 Apr, 2017 COPD exacerbation J44.1 ; Esophageal candidiasis B37.81 ; Other acute gastritis with hemorrhage K29.01 and Acute posthemorrhagic anemia D62 [facility] [id number] [place] [address] 84355- 4788 Apr, Viral illness B34.9 and COPD exacerbation J44.1 [facility] [id number] [place] [address] 71891 -2915 Apr, Shortness of breath R06.02 and Pneumonia of both lower lobes due to infectious organism J18.9 [facility] [id number] [place] [address] 88839 -5040 Mar, COPD with acute exacerbation J44.1 [facility] [id number] [place] [address] 35564- 7098 Mar, Chronic obstructive pulmonary disease with acute exacerbation J44.1 and Diabetes E11.9 [facility] [id number] [place] [address] 28946- 1182 Mar, [facility] [address] [address]- [address]456 Mar, [facility] [id number] [place] [address] 54386 -5261 Mar, COPD exacerbation J44.1 [facility] [id number] [place] [address] 52120- 1170 Mar, [facility] [id number] [place] [address] 19537- 8177 Mar, Migraine G43.909 ; Hypokalemia E87.6 and Type 2 diabetes mellitus without complications E11.9 [facility] [id number] [place] [address] 81207- 0271 Feb, [facility] [id number] [place] [address] 19302- 7582 Feb, [facility] [id number] [place] [address] 05218- 2126 Feb, Methamphetamine use disorder, moderate, 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 ; Major depressive disorder, recurrent, moderate F33.1 ; Anxiety disorder, unspecified F41.9 and Tobacco abuse Z72.0 [facility] [address] [place] [address] 11070- 5489 30 Jan, 2017 Major depressive disorder, recurrent, moderate F33.1 [facility] [id number] [place] [address] 95739- 3134 16 Jan, 2017 [facility] [id number] [place] [address] 32801- 8506 14 Jan, 2017 [facility] [id number] [place] [address] 90999- 2088 Jan, Major depressive disorder, recurrent, moderate F33.1 [facility] [id number] [place] [address] 30969- 4820 13 Jan, 2017 Major depressive disorder, recurrent, moderate F33.1 ; Anxiety disorder, unspecified F41.9 ; Methamphetamine use disorder, moderate, 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 and Tobacco abuse Z72.0 [facility] [id number] [place] [address] 48284- 9894 07 Jan, 2017 [facility] [id number] [place] [address] 30812- 8033 06 Jan, 2017 Chronic obstructive pulmonary disease with acute exacerbation J44.1 and Diabetes E11.9 [facility] [id number] [place] [address] 47022- 9394 06 Jan, 2017 [facility] [id number] [place] [address] 64878- 3443 Jan, [facility] [address] [place] [address] 20289- 6041 Dec, Acute respiratory failure with hypoxia J96.01 ; Chronic bronchitis, unspecified chronic bronchitis type J42 and Tobacco use Z72.0 [facility] [id number] [place] [address] 90525- 1076 Dec, [facility] [id number] [place] [address] [id number] Nov, Dental caries K02.9 and Dental examination Z01.20 [facility] [address] [address]- 7239 Nov, Major depressive disorder, recurrent, moderate F33.1 ; Anxiety disorder, unspecified F41.9 and 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 [facility] [address] [address] Oct, Dental examination Z01.20 [facility] [id number] [place] [address] 80893- 3609 Oct, [facility] [id number] [place] [address] 12512- 6150 Oct, Diabetes E11.9 and Thrush B37.0 [facility] [id number] [place] [address] 78212- 4447 Oct, [facility] [id number] [place] [address] 55909- 2198 Oct, [facility] [id number] [place] [address] 21215- 9030 Oct, [facility] [id number] [place] [address] 45907- 2857 Sep, Major depressive disorder, recurrent, moderate F33.1 ; Anxiety disorder, unspecified F41.9 and Bipolar disorder, unspecified F31.9 [facility] [address] [place] [address] 16187- 8902 Sep, Acute exacerbation of chronic obstructive pulmonary disease (COPD) J44.1 and Migraine G43.909 [facility] [address] [address]- 5065 Sep, [facility] [id number] [place] [address] [phone] Sep, [facility] [id number] [place] [address] 37456- 3603 Sep, Acute exacerbation of chronic obstructive pulmonary disease (COPD) J44.[address] 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 [facility] [id number] [place] [address] 19543- 5583 19 Aug, 2016 Wheezing R06.2 ; Non morbid obesity due to excess calories E66.09 ; Migraine without aura and without status migrainosus, not intractable G43.009 and Tobacco abuse Z72.0 [facility] [id number] [place] [address] [id number] 14 Aug, 2016 Encounter for dental examination Z01.20 [facility] [id number] [place] [address] 72961- 0590 02 Aug, 2016 Major depressive disorder, recurrent, moderate F33.1 ; Anxiety disorder, unspecified F41.9 and 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 [facility] [id number] [place] [address] 00024- 7301 July, [facility] [id number] [place] [address] 48597- 2480 July, [facility] [id number] [place] [address] 29480- 6959 July, [facility] [id number] [place] [address] 64262- 2309 July, Diabetes E11.9 [facility] [id number] [place] [address] 54708- 8783 Jun, Major depressive disorder, recurrent, moderate F33.1 [facility] [id number] [place] [address] 17674- 4790 Jun, Major depressive disorder, recurrent, moderate F33.1 ; 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 ; Generalized anxiety disorder F41.1 and Bipolar disorder, unspecified F31.9 [facility] [address] 36939- 1856 Jun, Diabetes E11.9 ; Migraine G43.909 ; Thrush B37.0 and Wheezing R06.2 [facility] [address] [id number] Jun, Dental examination Z01.20 [facility] [address] 24496- 3489 Jun, [facility] [address] 78268- 9713 Jun, Major depressive disorder, recurrent, moderate F33.1 ; Anxiety disorder, unspecified F41.9 and 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 [facility] [id number] [place] [address] 28164- 4352 Jun, [facility] [address] 80989- 7199 Jun, Wheezing R06.2 [facility] [address] [id number] Jun, Dental caries K02.9 [facility] [id number] [place] [address] 88804- 7627 Jun, Major depressive disorder, recurrent, moderate F33.1 ; Anxiety disorder, unspecified F41.9 and 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 [facility] [id number] [place] [address] 95737- 3616 Jun, RLQ abdominal pain R10.31 ; Diabetes E11.9 ; Obesity, unspecified obesity severity, unspecified obesity type E66.9 ; Wheezing R06.2 and Abnormal urinalysis R82.90 [facility] [id number] [place] [address] 95987- 9255 May, [facility] [id number] [place] [address] 95783- 5643 May, Well woman exam Z01.419 ; Breast cancer screening Z12.39 ; Cervical cancer screening Z12.4 ; Urinary frequency R35.0 ; Edema, unspecified type R60.9 and Chronic constipation K59.09 [facility] [id number] [place] [address] 98964- 3877 May, Major depressive disorder, recurrent, moderate F33.1 ; Anxiety disorder, unspecified F41.9 and 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 [facility] [id number] [place] [address] [id number] May, Dental examination Z01.20 [facility] [address] 04748- 8144 May, [facility] [id number] [place] [address] 25153- 5743 May, [facility] [id number] [place] [address] 05531- 7206 May, Chronic constipation K59.09 [facility] [id number] [place] [address] 76877- 4310 Apr, [facility] [id number] [place] [address] 32213- 8440 Apr, Major depressive disorder, recurrent, moderate F33.1 ; Anxiety disorder, unspecified F41.9 and 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 [facility] [id number] [place] [address] 58052- 3145 Apr, [facility] [id number] [place] [address] 50765- 6073 Mar, Major depressive disorder, recurrent, moderate F33.1 [facility] [address] [place] [address] 90535- 8111 Mar, Major depressive disorder, recurrent, moderate F33.1 ; Generalized anxiety disorder F41.1 and Bipolar I disorder, most recent episode depressed with anxious distress F31.30 [facility] [id number] [place] [address] 11619- 2948 Mar, Diabetes E11.9 ; Non morbid obesity due to excess calories E66.09 ; Breast cancer screening Z12.39 and Encounter for immunization Z23 [facility] [id number] [place] [address] 13297- 6360 Mar, Major depressive disorder, recurrent, moderate F33.1 ; Anxiety disorder, unspecified F41.9 and 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 [facility] [id number] [place] [address] 31649- 2888 Mar, [facility] [id number] [place] [address] 09411- 0513 Feb, Major depressive disorder, recurrent, moderate F33.1 ; Anxiety disorder, unspecified F41.9 and 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 [facility] [id number] [place] [address] 07941- 8434 Feb, [facility] [id number] [place] [address] 12627- 9377 Feb, [facility] [id number] [place] [address] 59359- 3292 Jan, Major depressive disorder, recurrent, moderate F33.1 ; Generalized anxiety disorder F41.1 and Bipolar disorder, current episode depressed, severe, without psychotic features F31.4 [facility] [address] [place] [address] 72400- 3184 Jan, Major depressive disorder, recurrent, moderate F33.1 ; Anxiety disorder, unspecified F41.9 and 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 [facility] [address] [address]- 8321 Jan, Bronchitis J40 [facility] [address] [place] [address] 84726- 0891 Jan, [facility] [address] [place] [address] 84642- 5064 Jan, [facility] [id number] [place] [address] 45426- 1998 Jan, Elbow injury, right, initial encounter S59.901A ; Multiple contusions T14.8 and Cervical strain, acute, initial encounter S16.1XXA [facility] [address] [place] [address] 75098- 8360 Dec, Major depressive disorder, recurrent, moderate F33.1 ; Generalized anxiety disorder F41.1 and Bipolar disorder with depression F31.30 [facility] [address] [place] [address] 97573- 9138 Dec, [facility] [address] [place] [address] 08016- 4414 Dec, [facility] [address] [place] [address] 78653- 9040 Dec, [facility] [address] [place] [address] 16178- 3803 Dec, [facility] [address] [place] [address] 85095- 4866 Dec, Yeast infection B37.9 [facility] [address] [place] [address] 31412- 1459 Dec, Pneumonia of both lungs due to methicillin resistant Staphylococcus aureus (MRSA), unspecified part of lung J15.212 and Benzodiazepine overdose, accidental or unintentional, subsequent encounter T42.4X1D [facility] [address] [place] [address] 31930- 1962 Dec, [facility] [id number] [place] [address] 76850- 6937 Dec, [facility] [id number] [place] [address] 36730- 3291 Dec, Knee pain, left M25.562 and Edema, unspecified type R60.9 [facility] [id number] [place] [address] 16652- 8491 Dec, [facility] [id number] [place] [address] 02355- 1911 Dec, Anxiety disorder, unspecified F41.9 and Bipolar disorder, unspecified F31.9 [facility] [id number] [place] [address] 73832- 0774 Nov, Major depressive disorder, recurrent, moderate F33.1 ; Anxiety disorder, unspecified F41.9 and 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 [facility] [id number] [place] [address] 35694- 0977 Nov, [facility] [id number] [place] [address] 79477- 7482 Nov, Migraine without aura and without status migrainosus, not intractable G43.009 [facility] [address] [place] [address] 04287- 1087 Nov, Migraine G43.909 [facility] [id number] [place] [address] 48856- 5206 Nov, [facility] [address] [place] [address] 99139- 8146 Nov, Major depressive disorder, recurrent, moderate F33.1 ; Anxiety disorder, unspecified F41.9 and 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9 ; Edema, unspecified type R60.9 ; Varicose vein of leg I83.90 and Obesity, unspecified obesity severity, unspecified obesity type E66.9 [facility] [id number] [place] [address] 84369- 7383 Sep, Edema, unspecified type R60.9 ; Diabetes E11.9 and Knee pain , left M25.562 [facility] [id number] [place] [address] 06740- 6827 Sep, [facility] [id number] [place] [address] 76117- 2047 Sep, [facility] [id number] [place] [address] 89829- 8197 Sep, Major depressive disorder, recurrent, moderate F33.1 ; Generalized anxiety disorder F41.1 and Bipolar disorder, unspecified F31.9 [facility] [id number] [place] [address] 52344- 7698 Aug, Chondromalacia of left knee M94.262 [facility] [id number] [place] [address] 19485- 5097 Aug, Major depressive disorder, recurrent, moderate F33.1 ; Anxiety disorder, unspecified F41.9 and 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 [facility] [id number] [place] [address] 36855- 6669 Aug, [facility] [address] [address]- 1706 Aug, Osteoarthritis of left knee M17.9 [facility] [id number] [place] [address] 31797- 6622 Aug, [facility] [id number] [place] [address] 02351- 7926 July, Major depressive disorder, recurrent, moderate F33.1 ; Anxiety disorder, unspecified F41.9 and 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 [facility] [id number] [place] [address] 50662- 8919 July, [facility] [id number] [place] [address] 42856- 7559 July, Chronic constipation K59.09 [facility] [id number] [place] [address] 71710- 3129 Jun, [facility] [id number] [place] [address] 73423- 2958 Jun, [facility] [id number] [place] [address] 64432- 2618 14 Jun, 2015 Osteoarthritis of left knee M17.9 [facility] [address] [place] [address] [id number] Jun, [facility] [id number] [place] [address] [phone] Jun, Generalized anxiety disorder F41.1 ; Bipolar disorder, unspecified F31.9 and Major depressive disorder, recurrent, moderate F33.1 [facility] [id number] [place] [address] [id number]- [phone] 07 Jun, 2015 Migraine G43.909 [facility] [id number] [place] [address] [id number]- [phone] 07 Jun, 2015 Left knee pain M25.562 ; Chronic constipation K59.09 ; Dry mouth R68.2 ; Yeast vaginitis B37.3 and Memory loss R41.3 [facility] [address] [address] 2061 Jun, [facility] [place] [id number] [place] [address] 55801- 0211 May, [facility] [address] [place] [id number] [place] [address] 58256- 7399 May, [facility] [address] [place] [id number] [place] [address] 99689- 6745 May, [facility] [id number] [place] [address] 00737- 6281 May, [facility] [address] [place] [id number] [place] [address] 31283- 9915 May, Acute bronchitis with COPD J44.0 ; Knee pain, left M25.562 and Encounter for tobacco use cessation counseling Z71.6 [facility] [address] [place] [id number] [place] [address] 07358- 1065 May, [facility] [address] [place] [address] [id number] [place] [address] 88076- 4704 Apr, Diabetes E11.9 ; TMJ (sprain of temporomandibular joint) S03.4XXA ; Tobacco abuse Z72.0 ; Migraine G43.909 and Anxiety F41.9 [place] [address] [place] [address] [id number] [place] [address] 61692- 2039 Apr, Generalized anxiety disorder F41.1 and Bipolar disorder, unspecified F31.9 [place] [id number] [place] [address] 28581- 5961 Apr, Major depressive disorder, recurrent, moderate F33.1 ; Anxiety disorder, unspecified F41.9 and 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 [place] [id number] [place] [address] 21557- 9873 Apr, [facility] [address] [place] [id number] [place] [address] 51503- 8428 Mar, [facility] [id number] [place] [address] 37715- 9335 Feb, [facility] [id number] [place] [address] 99550- 9489 Feb, Major depressive disorder, recurrent, moderate F33.1 ; Anxiety disorder, unspecified F41.9 and 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 [facility] [address] [id number] [place] [address] 85266- 8922 Feb, [facility] [address] [id number] [place] [address] 40180- 6214 Feb, Generalized anxiety disorder F41.1 and Bipolar disorder, unspecified F31.9 [place] [address] [place] [address] [id number] [place] [address] 36611- 4215 Jan, [facility] [id number] [place] [address] 16275- 5500 Jan, [facility] [address] [id number] [place] [address] 85711- 7661 Jan, Bipolar disorder, unspecified F31.9 and Generalized anxiety disorder F41.1 [facility] [address] [id number] [place] [address] 21933- 4278 Dec, [facility] [address] [id number] [place] [address] 07019- 9323 Dec, Bipolar disorder, unspecified F31.9 and Generalized anxiety disorder F41.1 [facility] [address] [id number] [place] [address] 94954- 5283 Dec, Generalized anxiety disorder F41.1 and Major depressive disorder, recurrent, moderate F33.1 [facility] [id number] [place] [address] 99487- 6749 Oct, Headache 784.0 ; Cough 786.2 ; Vomiting and diarrhea 787.03 and Dysuria 788.1 [facility] [address] [address]- 9778 Aug, [facility] [address] [id number] [place] [address] 33371- 6449 Aug, Headache 784.0 and Shortness of breath 786.05 [facility] [id number] [place] [address] 93449- 1840 Aug, [facility] [id number] [place] [address] 74512- 9821 Aug, Migraine 346.90 [facility] [address] 27929- 0247 Jun, [facility] [id number] [place] [address] 62874- 5511 Jun, [facility] [id number] [place] [address] 00592- 2448 May, [facility] [id number] [place] [address] 70218- 0671 May, [facility] [id number] [place] [address] 14665- 0693 May, [facility] [address] [address]- 9842 May, [facility] [id number] [place] [address] 25883- 0411 May, [facility] [address] [address] 2543 May, [facility] [id number] [place] [address] 603972- 5299 Apr, [facility] [address] 2756 Apr, [facility] [id number] [place] [address] 79015- 6553 Apr, [facility] [place] [facility] [address] [id number] [place] [address]- 5083 Apr, [facility] [place] [facility] [address] [id number] [place] 6932 Apr, [facility] [place] [facility] [address] [facility] [id number] [place] [address]- 2148 Mar, [facility] [place] [facility] [address] [id number] [place] [address]- 8980 Mar, [facility] [place] [facility] [address] [id number] [place] [address]- 0539 Mar, [facility] [place] [facility] [address] [facility] [id number] [place] [address]- 7130 Mar, [facility] [place] [facility] [address] [facility] [id number] [place] [address]- 0487 Feb, [facility] [place] [facility] [address] [id number] [place] [address]- 8948 Feb, [facility] [place] [facility] [address] [id number] [place] [address]- 3327 Feb, [facility] [place] [facility] [address] [facility] [id number] [place] [address]- 7080 Feb, [facility] [place] [facility] [address] [facility] [id number] [place] [address]- 6950 16 Feb, 2014 [facility] [place] [facility] [address] [id number] [place] [address]- 8452 16 Feb, 2014 [facility] [place] [facility] [address] [id number] [place] [address]- 7369 Feb, [facility] [place] [facility] [address] [facility] [id number] [place] [address]- 0681 Feb, [facility] [place] [facility] [address] [facility] [id number] [place] [address]- 9740 08 Feb, 2014 [facility] [place] [facility] [address] [id number] [place] [address]- 7989 Feb, [facility] [place] [facility] [address] [id number] [place] [address]- 2937 Feb, [facility] [place] [facility] [address] [id number] [place] [address]- 2324 Feb, [facility] [place] [facility] [address] [id number] [place] [address]- 4723 Jan, [facility] [place] [facility] [address] [id number] [place] [address]- 4661 Jan, [facility] [place] [facility] [address] [id number] [place] [address]- 7945 Dec, [facility] [place] [facility] [address] [id number] [place] [address]- 1802 Dec, [facility] [place] [facility] [address] [id number] [place] [address]- 3779 Dec, [facility] [place] [facility] [address] [id number] [place] [address]- 7563 Dec, [facility] [place] [facility] [address] [id number] [place] [address]- 4936 Dec, [facility] [place] [facility] [address] [id number] [place] [address]- 1506 Dec, [facility] [place] [facility] [address] [id number] [place] [address]- 1865 Sep, [facility] [place] [facility] [address] [id number] [place] [address]- 9472 Sep, [facility] [place] [facility] [address] [id number] [place] [address]- 4171 Sep, [facility] [place] [facility] [address] [id number] [place] [address]- 4639 Sep, [facility] [place] [facility] [address] [id number] [place] [address]- 9936 Sep, [facility] [place] [facility] [address] [id number] [place] [address]- 8550 14 Sep, 2013 [facility] [place] [facility] [address] [id number] [place] [address]- 0337 Sep, [facility] [place] [facility] [address] [id number] [place] [address]- 4404 Sep, 2013 [facility] [place] [facility] [address] [id number] [place] [address]- 9536 Sep, [facility] [place] [facility] [address] [id number] [place] [address]- 8147 Sep, [facility] [place] [facility] [address] [id number] [place] [address]- 6084 24 Aug, 2013 [facility] [place] [facility] [address] [id number] [place] [address]- 5480 Aug, [facility] [place] [facility] [address] [id number] [place] [address]- 9297 Aug, [facility] [place] [facility] [address] [id number] [place] [address]- 1315 Aug, [facility] [place] [facility] [address] [id number] [place] [address]- 9088 Aug, [facility] [place] [facility] [address] [id number] [place] [address]- 1755 Aug, [facility] [place] [facility] [address] [id number] [place] [address]- 5534 14 Aug, 2013 [facility] [place] [facility] [address] [id number] [place] [address]- 9383 Aug, [facility] [place] [facility] [address] [id number] [place] [address]- 4949 Aug, [facility] [place] [facility] [address] [id number] [place] [address]- 1268 05 Aug, 2013 [facility] [place] [facility] [address] [id number] [place] [address]- 0800 Aug, [facility] [place] [facility] [address] [id number] [place] [address]- 8178 Aug, [facility] [place] [facility] [address] [id number] [place] [address]- 0907 Aug, [facility] [place] [facility] [address] [id number] [place] [address]- 9233 July, [facility] [place] [facility] [address] [id number] [place] [address]- 5523 July, [facility] [place] [facility] [address] [id number] [place] [address]- 1810 July, [facility] [place] [facility] [address] [id number] [place] [address]- 7915 July, [facility] [place] [facility] [address] [id number] [place] [address]- 5221 July, [facility] [place] [facility] [address] [id number] [place] [address]- 8771 July, [facility] [place] [facility] [address] [id number] [place] [address]- 5672 July, [facility] [place] [facility] [address] [id number] [place] [address]- 1574 Jun, [facility] [place] [facility] [address] [id number] [place] [address]- 9012 Jun, [facility] [place] [facility] [address] [id number] [place] [address]- 4977 18 Jun, 2013 [facility] [place] [facility] [address] [id number] [place] [address]- 7308 Jun, [facility] [place] [facility] [address] [id number] [place] [address]- 2856 Jun, [facility] [place] [facility] [address] [id number] [place] [address]- 8372 Jun, [facility] [place] [facility] [address] [id number] [place] [address]- 4243 08 Jun, 2013 [facility] [place] [facility] [address] [id number] [place] [address]- 5955 17 May, 2013 [facility] [place] [facility] [address] [id number] [place] [address]- 4449 17 May, 2013 [facility] [place] [facility] [address] [id number] [place] [address]- 1010 14 May, 2013 [facility] [place] [facility] [address] [id number] [place] [address]- 2591 14 May, 2013 [facility] [place] [facility] [address] [id number] [place] [address]- 7193 13 May, 2013 [facility] [place] [facility] [address] [id number] [place] [address]- 8600 13 May, 2013 [facility] [place] [facility] [address] [id number] [place] [address]- 3670 10 May, 2013 [facility] [place] [facility] [address] [id number] [place] [address]- 5464 10 May, 2013 [facility] [place] [facility] [address] [id number] [place] [address]- 2086 07 May, 2013 [facility] [place] [facility] [address] [id number] [place] [address]- 7401 26 Apr, 2013 [facility] [place] [facility] [address] [id number] [place] [address]- 9311 26 Apr, 2013 [facility] [place] [facility] [address] [id number] [place] [address]- 4050 18 Apr, 2013 [facility] [place] [facility] [address] [id number] [place] [address]- 4850 15 Apr, 2013 [facility] [place] [facility] [address] [id number] [place] [address]- 6152 15 Apr, 2013 [facility] [place] [facility] [address] [id number] [place] [address]- 3120 Apr, [facility] [place] [facility] [address] [id number] [place] [address]- 8849 Apr, [facility] [place] [facility] [address] [id number] [place] [address]- 7206 Apr, [facility] [place] [facility] [address] [id number] [place] [address]- 6015 Apr, [facility] [place] [facility] [address] [id number] [place] [address]- 5253 Apr, [facility] [place] [facility] [address] [id number] [place] [address]- 4361 Mar, [facility] [place] [facility] [address] [id number] [place] [address]- 9363 Mar, [facility] [place] [facility] [address] [id number] [place] [address]- 5955 Mar, [facility] [place] [facility] [address] [id number] [place] [address]- 2981 Mar, [facility] [place] [facility] [address] [id number] [place] [address]- 2679 Mar, [facility] [place] [facility] [address] [facility] [id number] [place] [address]- 1412 Mar, [facility] [place] [facility] [address] [id number] [place] [address]- 7844 Mar, [facility] [place] [facility] [address] [id number] [address]- 3995 Mar, [facility] [place] [facility] [address] [id number] [place] [address]- 1674 Feb, [facility] [place] [facility] [address] [id number] [place] [address]- 6009 Feb, [facility] [place] [facility] [address] [id number] [place] [address]- 4248 Jan, [facility] [place] [facility] [address] [id number] [place] [address]- 0247 18 Jan, 2013 [facility] [place] [facility] [address] [id number] [place] [address]- 8886 15 Jan, 2013 [facility] [place] [facility] [address] [id number] [place] [address]- 4335 15 Jan, 2013 [facility] [place] [facility] [address] [id number] [place] [address]- 9598 Jan, [facility] [place] [facility] [address] [id number] [place] [address]- 8405 Jan, [facility] [place] [facility] [address] [id number] [place] [address]- 1037 Jan, [facility] [place] [facility] [address] [id number] [place] [address]- 9794 05 Jan, 2013 [facility] [place] [facility] [address] [id number] [place] [address]- 2180 Dec, [facility] [place] [facility] [address] [id number] [place] [address]- 3369 10 Dec, 2012 [facility] [place] [facility] [address] [id number] [place] [address]- 8341 10 Dec, 2012 [facility] [place] [facility] [address] [id number] [place] [address]- 5016 20 Nov, 2012 [facility] [place] [facility] [address] [id number] [place] [address]- 2549 13 Nov, 2012 [facility] [place] [facility] [address] [id number] [place] [address]- 2547 12 Sep2012 [facility] [place] [facility] [address] [id number] [place] [address]- 2540 09 Sep, 2012 [facility] [place] [facility] [address] [id number] [place] [address]- 2547 06 Sep, 2012 [facility] [place] [facility] [address] [id number] [place] [address]- 9834 Nov, [facility] [place] [facility] [address] [id number] [place] [address]- 9702 Oct, [facility] [place] [facility] [address] [id number] [place] [address]- 7862 Oct, [facility] [place] [facility] [address] [id number] [place] [address]- 1927 Sep, [facility] [place] [facility] [address] [id number] [place] [address]- 5017 Sep, [facility] [place] [facility] [address] [id number] [place] [address]- 6993 Sep, [facility] [place] [facility] [address] [id number] [place] [address]- 3160 Sep, [facility] [place] [facility] [address] [id number] [place] [address]- 6504 Sep, [facility] [place] [facility] [address] [id number] [place] [address]- 8713 Sep, [facility] [place] [facility] [address] [id number] [place] [address]- 9764 Sep, [facility] [place] [facility] [address] [id number] [place] [address]- 3668 Aug, [facility] [place] [facility] [address] [id number] [place] [address]- 3632 14 Aug, 2012 [facility] [place] [facility] [address] [id number] [address]- 3598 Aug, [facility] [place] [facility] [address] [id number] [place] [address]- 7975 Aug, [facility] [place] [facility] [address] [id number] [place] [address]- 0026 Aug, [facility] [place] [facility] [address] [id number] [place] [address]- 4719 Aug, [facility] [place] [facility] [address] [id number] [place] [address]- 3624 July, [facility] [address] [id number] [place] [address]- 6463 July, [facility] [address] [id number] [place] [address]- 9586 July, [facility] [address] [id number] [place] [address]- 5530 July, [facility] [address] [id number] [place] [address]- 8895 July, [facility] [address] [id number] [place] [address]- 0585 July, [facility] [address] [id number] [place] [address]- 6581 Jun, [facility] [address] [id number] [place] [address]- 4590 Jun, [facility] [address] [id number] [place] [address]- 8509 Jun, [facility] [address] [id number] [place] [address]- 3998 Jun, [facility] [address] [id number] [place] [address]- 8181 Jun, [facility] [address] [id number] [place] [address]- 5359 Jun, [facility] [address] [id number] [place] [address]- 9862 Jun, [facility] [place] [facility] [address] [id number] [place] [address]- 9444 May, [facility] [address] [id number] [place] [address]- 9800 May, [facility] [address] [id number] [place] [address]- 1433 Apr, [facility] [place] [facility] [address] [id number] [place] [address]- 9334 Apr, [facility] [place] [facility] [address] [id number] [place] [address]- 0846 Apr, [facility] [place] [facility] [address] [id number] [place] [address]- 0315 Apr, [facility] [place] [facility] [address] [id number] [place] [address] 2540 12 Apr, 2012 [facility] [place] [facility] [address] [id number] [place] [address]- [address] 08 Apr, 2012 [facility] [place] [facility] [address] [id number] [place] [address]- [address] 07 Apr, 2012 [facility] [place] [facility] [address] [id number] [place] [address] 07 Apr, 2012 [facility] [place] [facility] [address] [id number] [place] [address]- [address] 06 Apr, 2012 [facility] [place] [facility] [address] [id number] [place] [address]- [address] 06 Apr, 2012 [facility] [place] [facility] [address] [id number] [place] [address] Apr, [facility] [place] [facility] [address] [id number] [place] [address] Mar, [facility] [place] [facility] [address] [id number] [place] [address] Mar, [facility] [place] [facility] [address] [id number] [place] [address] 2544 Mar, [facility] [place] [facility] [address] [id number] [place] [address] Mar, [facility] [place] [facility] [address] [id number] [place] [address] Mar, [facility] [place] [facility] [address] [id number] [place] [address] 1177 15 Mar, 2012 [facility] [address] [id number] [place] [address] 15 Mar, 2012 [facility] [address] [id number] [place] [address] 83[address] 15 Mar, 2012 [facility] [address] [id number] [place] [address]- 96[address] 09 Mar, 2012 [facility] [address] [id number] [place] [address]- 2006 Mar, [facility] [address] [id number] [place] [address] Mar, [facility] [address] [id number] [place] [address] 8575 Mar, [facility] [address] [id number] [place] [address] Mar, [facility] [address] [id number] [place] [address]298 Feb, [facility] [address] [id number] [place] [address] Feb, [facility] [address] [id number] [place] [address]- [address]68 18 Feb, 2012 [facility] [address] [id number] [place] [address] 8619 18 Feb, 2012 [facility] [address] [id number] [place] [address]- 2548 Feb, [facility] [address] [id number] [place] [address] 83[address] 11 Feb, 2012 [facility] [address] [id number] [place] [address]- [address] 10 Feb, 2012 [facility] [address] [id number] [place] [address]- 5874 Feb, [facility] [place] [facility] [address] [id number] [place] [address] Feb, [facility] [place] [facility] [address] [id number] [place] [address] 4106 Feb, [facility] [place] [facility] [address] [id number] [place] [address] Feb, [facility] [place] [facility] [address] [id number] [place] [address]- 9085 Feb, [facility] [place] [facility] [address] [id number] [place] [address] 9705 Feb, [facility] [place] [facility] [address] [id number] [place] [address] 4027 Feb, [facility] [place] [facility] [address] [id number] [place] [address] Feb, [facility] [place] [facility] [address] [id number] [place] [address]- [address]687 Jan, [facility] [place] [facility] [address] [id number] [place] [address]- 1773 Jan, [facility] [place] [facility] [address] [facility] [id number] [address] Jan, [facility] [place] [facility] [address] [facility] [id number] [address] 18[address] Jan, [facility] [place] [facility] [address] [id number] [place] [address] Dec, [facility] [place] [facility] [address] [id number] [place] [address]- 79[address] Dec, [facility] [place] [facility] [address] [id number] [place] [address] Dec, [facility] [place] [facility] [address] [facility] [id number] [place] [address] Dec, [facility] [place] [facility] [address] [id number] [place] [address] 25 Dec, 2011 [facility] [place] [facility] [address] [id number] [place] [address]- 90[address] 25 Dec, 2011 [facility] [place] [facility] [address] [facility] [id number] [address]- [address] 16 Dec, 2011 [facility] [place] [facility] [address] [facility] [id number] [place] [address]- 6956 16 Dec, 2011 [facility] [place] [facility] [address] [id number] [place] [address]- 6396 07 Dec, 2011 [facility] [place] [facility] [address] [id number] [place] [address], [place] [address]- [address]29 04 Dec, 2011 [facility] [place] [facility] [address] [facility] [id number] [place] [address]- 0436 03 Dec, 2011 [facility] [place] [facility] [address] [facility] [id number] [address] 25 Sep, 2011 [facility] [place] [facility] [address] [id number] [place] [address] 24 Sep, 2011 [facility] [place] [facility] [address] [facility] [id number] [place] [address]- 9925 20 Sep, 2011 [facility] [place] [facility] [address] [facility] [id number] [place] [address]72 19 Sep, 2011 [facility] [place] [facility] [address] [facility] [id number] [place] [address]368 17 Sep, 2011 [facility] [facility] [address] [facility] [id number] [address] 16 Sep, 2011 [facility] [place] [facility] [address] [id number] [place] [address] 14 Sep, 2011 [facility] [place] [facility] [address] [facility] [id number] [place] [address] 13 Sep, 2011 [facility] [place] [facility] [address] [facility] [id number] [place] [address] 12 Sep, 2011 [facility] [place] [facility] [address] [id number] [place] [address] 07 Sep, 2011 [facility] [place] [facility] [address] [id number] [place] [address] 06 Sep, 2011 [facility] [place] [facility] [address] [id number] [place] [address] 2546 06 Nov, 2011 [facility] [place] [facility] [address] [id number] [place] [address] 2546 05 Nov, 2011 [facility] [place] [facility] [address] [id number] [place] [address]48 Oct, [facility] [place] [facility] [address] [id number] [place] [address] Oct, [facility] [place] [facility] [address] [id number] [place] [address] Oct, [facility] [place] [facility] [address] [id number] [place] [address] Oct, [facility] [place] [facility] [address] [id number] [place] [address] Oct, [facility] [place] [facility] [address] [id number] [place] [address]199 Oct, [facility] [place] [facility] [address] [id number] [place] [address]- [address] Oct, [facility] [place] [facility] [address] [id number] [place] [address] 16 Oct, 2011 [facility] [place] [facility] [address] [id number] [place] [address] 2541 15 Oct, 2011 [facility] [place] [facility] [address] [id number] [place] [address]- [address]46 Oct, [facility] [place] [facility] [address] [id number] [place] [address]- [address]46 08 Oct, 2011 [facility] [place] [facility] [address] [id number] [place] [address] Sep, [facility] [place] [facility] [address] [id number] [place] [address]- [address] Sep, [facility] [place] [facility] [address] [id number] [place] [address]- [address] Sep, [facility] [place] [facility] [address] [id number] [place] [address]- [address] Sep, [facility] [place] [facility] [address] [id number] [place] [address]- [address]99 Sep, [facility] [place] [facility] [address] [id number] [place] [address]- 2420 Sep, [facility] [place] [facility] [address] [id number] [place] [address]- [address]687 Aug, [facility] [place] [facility] [address] [id number] [place] [address]- 37[address] July, [facility] [place] [facility] [address] [id number] [place] [address]- [address] July, [facility] [place] [facility] [address] [id number] [place] [address]- 2042 Jun, [facility] [place] [facility] [address] [id number] [place] [address]- [address] Jun, [facility] [place] [facility] [address] [id number] [place] [address]- [address] Jun, [facility] [place] [facility] [address] [id number] [place] [address]- 7910 Jun, [facility] [place] [facility] [address] [id number] [place] [address]- 8[address] Jun, [facility] [place] [facility] [address] [id number] [place] [address]- [address] Jun, [facility] [place] [facility] [address] [id number] [place] [address]- 9166 Jun, [facility] [place] [facility] [address] [id number] [place] [address]- [address]657 08 Jun, 2011 [facility] [place] [facility] [address] [id number] [place] [address]- [address] 03 Jun, 2011 [facility] [place] [facility] [address] [id number] [place] [address]- [address] Jun, [facility] [place] [facility] [address] [id number] [place] [address]- [address] Jun, [facility] [place] [facility] [address] [id number] [place] [address]- 9274 19 May, 2011 [facility] [place] [facility] [address] [id number] [place] [address]- 5971 16 May, 2011 [facility] [place] [facility] [address] [id number] [place] [address]- [address]233 14 May, 2011 [facility] [place] [facility] [address] [facility] [id number] [place] [address]- 1511 06 May, 2011 [facility] [place] [facility] [address] [id number] [place] [address]- 5[address] Apr, [facility] [place] [facility] [address] [id number] [place] [address]- [address] 28 Apr, 2011 [facility] [address] [facility] [id number] [place] [address]- 275[address] Apr, [facility] [place] [address] [id number] [place] [address] 2546 Apr, [facility] [place] [facility] [address] [id number] [place] [address] 2546 Apr, [facility] [place] [facility] [address] [id number] [place] [address]- [address] Apr, [facility] [place] [facility] [address] [facility] [id number] [place] [address]- 2546 Apr, [facility] [id number] [place] [address] Apr, [facility] [address] [id number] [place] [address]- 1827 Mar, [facility] [place] [facility] [address] [id number] [place] [address]- 4544 Mar, [facility] [place] [facility] [address] [id number] [place] [address]- 9072 Mar, [facility] [place] [facility] [address] [id number] [place] [address]- 6806 Mar, [facility] [address] [id number] [place] [address]- 5130 Mar, [facility] [place] [facility] [address] [id number] [place] [address]- 5062 Mar, [facility] [place] [facility] [address] [id number] [place] [address]- 7132 Mar, [facility] [place] [facility] [address] [id number] [place] [address]- 9457 Mar, [facility] [place] [facility] [address] [id number] [place] [address] Mar, [facility] [place] [facility] [address] [id number] [place] [address]- 3734 Mar, [facility] [place] [address] [id number] [place] [address] Mar, [facility] [address] [id number] [place] [address]- 2342 Mar, [facility] [address] [id number] [place] [address]- 2813 Mar, [facility] [place] [facility] [address] [id number] [place] [address]- 4042 Mar, [facility] [place] [address] [id number] [place] [address]- 5614 Mar, [facility] [place] [facility] [address] [id number] [place] [address]- 1802 Mar, [facility] [place] [facility] [address] [id number] [place] [address]- 6033 Feb, [facility] [place] [facility] [address] [id number] [place] [address] Feb, [facility] [place] [facility] [address] [id number] [place] [address]- 6215 Feb, [facility] [place] [facility] [address] [id number] [place] [address]- 4971 Jan, [facility] [place] [address] [id number] [place] [address] Jan, [facility] [place] [facility] [address] [id number] [place] [address]- 7314 Jan, [facility] [place] [facility] [address] [id number] [place] [address]- 3457 Dec, [facility] [place] [facility] [address] [id number] [place] [address]- 1930 Dec, [facility] [place] [facility] [address] [id number] [place] [address] Nov, [facility] [place] [facility] [address] [id number] [place] [address]- 7066 Oct, [facility] [place] [facility] [address] [id number] [place] [address]- 6248 Oct, [facility] [place] [facility] [address] [id number] [place] [address]- 2170 Oct, [facility] [place] [facility] [address] [id number] [place] [address]- 1076 Sep, [facility] [place] [facility] [address] [id number] [place] [address]- 8078 Apr, [facility] [place] [facility] [address] [id number] [place] [address]- 6754 Feb, [facility] [place] [address] [facility] [id number] [place] [address]- [address] Jan, IMMUNIZATIONS No Known Immunizations SOCIAL HISTORY Never Assessed REASON FOR VISIT PALS-cymbalta/abilify PLAN OF CARE VITAL SIGNS MEDICATIONS Medication [...] 2/2 Benzos OD, pneumonia MRSA, [facility], Hypokalemia-- [facility] 12/20/2015 Hospitalization History COPD exacerbation, Asthma-[facility] 09/21/16 Hospitalization History COPD-[facility] 12/30/2016 Hospitalization History [facility]-last around 2006 or so. Hospitalization History for COPD x2 Mar 2017 Hospitalization History Upper GI bleed at apr 2017 Hospitalization History [facility]- COPD Exacerbation, diarrhea 05/23/2017 Hospitalization History COPD exacerbation-[facility] 06/13/17 Hospitalization History [facility] 09/09/2017
--- OUTSIDE RECORDS SUMMARY | 2017-11-19 13:31 | XMS REPORT ---
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 Name Role Phone TIMOTHY LARIOS Unavailable PROBLEMS Type Condition ICD9-CM Code UGU06-VA Code Onset Dates Condition Status SNOMED Code Problem Bipolar disorder with depression F31.30 Active 88020084 Problem Other emphysema J43.8 Active 21862776 Problem Migraine without aura and without status migrainosus, not intractable G43.009 Active 359302049 Problem Anxiety F41.9 Active 33046438 Problem COPD with exacerbation J44.1 Active 833601154 Problem Methamphetamine use disorder, moderate, 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 Active 35110089 Problem Chronic bronchitis, unspecified chronic bronchitis type J42 Active 70837958 Problem Intractable cyclical vomiting with nausea G43.A1 Active 86326207 Problem Diabetes E11.9 Active 476829985 Problem 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 Active Problem Tobacco abuse Z72.0 Active 28131770 Problem Examination of eyes and vision V72.0 Active 206083168 Problem Chronic constipation K59.09 Active 810449283 Problem Memory loss R41.3 Active 27138832 Problem Migraine G43.909 Active 68065551 Problem Bipolar disorder, unspecified F31.9 Active 43371496 Problem TMJ (sprain of temporomandibular joint) S03.4XXA Active 77678728 Problem Generalized anxiety disorder F41.1 Active 77538195 ALLERGIES Substance Reaction Event Type Date Status Buspar 10 Mg Tablet made legs shaky Non Drug Allergy Dec, Active Benzodiazepines NARC ALERT Broke narc contract Non Drug Allergy Dec Active Narcotic NARC ALERT Broke Narc contract Non Drug Allergy Dec, Active ENCOUNTERS Encounter Location Date Diagnosis [facility] [address] [facility] [id number] [address] Sep, COPD with exacerbation J44.1 and Anxiety F41.9 [facility] [address], [place] [address] Sep, [facility] [address], [place] [address] 44[address] Sep, [facility] [address], [place] [address] Sep, [facility] [id number] [place] [address] 72196- 7881 Sep, Acute congestive heart failure, unspecified heart failure type I50.9 and Anxiety disorder, unspecified F41.9 [facility] [id number] [place] [address] 15205- 1704 Sep, Heart failure, unspecified HF chronicity, unspecified heart failure type I50.9 [facility] [address], [place] [address] Sep, [facility] [address], [place] [address] Aug, Chronic obstructive pulmonary disease with acute exacerbation J44.1 [facility] [address], [place] [address] Aug, [facility] [address], [place] [address] 18[address] Aug, [facility] [address], [place] [address] July, [facility] [address], [place] [address] 41[address] July, [facility] [address], [place] [address] 0[address] July, Diabetes E11.9 and Chronic obstructive pulmonary disease with acute exacerbation J44.1 [facility] [address], [place] [address] Jun, Chronic obstructive pulmonary disease with acute exacerbation J44.1 ; Diabetes E11.9 and Tobacco abuse Z72.0 [facility] [id number] [place] [address] 71256- 1077 Jun, [facility] [id number] [place] [address] 64339- 2749 Jun, [facility] [address] 75272- 7244 May, [facility] [address] 42992- 1008 May, [facility] [address] 79787 -4168 17 May, 2017 [facility] [id number] [place] [address] 21356- 2916 16 May, 2017 [place] [address] 84211- 7468 15 May, 2017 [facility] [id number] [place] [address] 70421- 4596 14 May, 2017 Diarrhea, unspecified type R19.7 and Intractable cyclical vomiting with nausea G43.A1 [facility] [id number] [place] [address] 50139- 8450 May, [place] [id number] [place] [address] 41665- 0957 May, [facility] [address] 16907- 0228 Apr, COPD exacerbation J44.1 ; Esophageal candidiasis B37.81 ; Other acute gastritis with hemorrhage K29.01 and Acute posthemorrhagic anemia D62 [facility] [id number] [place] [address] 74145- 9739 Apr, Viral illness B34.9 and COPD exacerbation J44.1 [facility] [id number] [place] [address] 60956 -3765 Apr, Shortness of breath R06.02 and Pneumonia of both lower lobes due to infectious organism J18.9 [facility] [id number] [place] [address] 67798 -0586 Mar, COPD with acute exacerbation J44.1 [facility] [id number] [place] [address] 58841- 6442 Mar, Chronic obstructive pulmonary disease with acute exacerbation J44.1 and Diabetes E11.9 [facility] [id number] [place] [address] 28054- 5160 Mar, [place] [address] 73758- 9045 Mar, [facility] [id number] [place] [address] 93139 -3503 Mar, COPD exacerbation J44.1 [place] [id number] [place] [address] 03077- 5169 Mar, [place] [id number] [place] [address] 88078- 9908 Mar, Migraine G43.909 ; Hypokalemia E87.6 and Type 2 diabetes mellitus without complications E11.9 [place] [id number] [place] [address] 02432- 0577 Feb, [place] [id number] [place] [address] 04957- 3857 Feb, [place] [id number] [place] [address] 42625- 4091 Feb, Methamphetamine use disorder, moderate, 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 ; Major depressive disorder, recurrent, moderate F33.1 ; Anxiety disorder, unspecified F41.9 and Tobacco abuse Z72.0 [place] [address] [place] [address] 48521- 7441 Jan, Major depressive disorder, recurrent, moderate F33.1 [place] [address] [place] [address] 76417- 3125 16 Jan, 2017 [facility] [id number] [place] [address] 02407- 6743 14 Jan, 2017 [facility] [id number] [place] [address] 71451- 3450 Jan, Major depressive disorder, recurrent, moderate F33.1 [facility] [id number] [place] [address] 52572- 7311 Jan, Major depressive disorder, recurrent, moderate F33.1 ; Anxiety disorder, unspecified F41.9 ; Methamphetamine use disorder, moderate, 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 and Tobacco abuse Z72.0 [place] [id number] [place] [address] 19728- 8363 Jan, [place] [id number] [place] [address] 59754- 8643 Jan, Chronic obstructive pulmonary disease with acute exacerbation J44.1 and Diabetes E11.9 [facility] [id number] [place] [address] 49337- 4256 Jan, [facility] [id number] [place] [address] 63561- 0071 Jan, [facility] [id number] [place] [address] 34545- 3046 Dec, Acute respiratory failure with hypoxia J96.01 ; Chronic bronchitis, unspecified chronic bronchitis type J42 and Tobacco use Z72.0 [facility] [address] [place] [address] 97898- 9172 Dec, [facility] [id number] [place] [address] [id number] Nov, Dental caries K02.9 and Dental examination Z01.20 [facility] [address] [place] [address] 22755- 6329 Nov, Major depressive disorder, recurrent, moderate F33.1 ; Anxiety disorder, unspecified F41.9 and 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 [facility] [address] [id number] [id number] Oct, Dental examination Z01.20 [facility] [address] [place] [address] 92829- 6393 Oct, [facility] [id number] [place] [address] 97302- 3608 Oct, Diabetes E11.9 and Thrush B37.0 [facility] [id number] [place] [address] 34764- 7147 Oct, [facility] [id number] [place] [address] 88491- 8552 Oct, [facility] [id number] [place] [address] 69596- 5949 Oct, [facility] [id number] [place] [address] 79775- 0684 Sep, Major depressive disorder, recurrent, moderate F33.1 ; Anxiety disorder, unspecified F41.9 and Bipolar disorder, unspecified F31.9 [facility] [address] [place] [address] 46878- 3160 Sep, Acute exacerbation of chronic obstructive pulmonary disease (COPD) J44.1 and Migraine G43.909 [facility] [address] [place] [address] 83007- 4613 Sep, [facility] [id number] [place] [address] [id number] Sep, [facility] [address] [place] [address] 74640- 2938 Sep, Acute exacerbation of chronic obstructive pulmonary disease (COPD) J44.1 [facility] [address], [place] [address] Sep, Acute exacerbation of chronic obstructive pulmonary disease (COPD) J44.1 [place] [address] [place] [address] 85574- 3687 Aug, [facility] [id number] [place] [address] 89142- 7495 Aug, Major depressive disorder, recurrent, moderate F33.1 ; Anxiety disorder, unspecified F41.9 and 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 [facility] [id number] [place] [address] 12038- 5205 19 Aug, 2016 Wheezing R06.2 ; Non morbid obesity due to excess calories E66.09 ; Migraine without aura and without status migrainosus, not intractable G43.009 and Tobacco abuse Z72.0 [facility] [address] [place] [address] [id number] 14 Aug, 2016 Encounter for dental examination Z01.20 [place] [id number] [place] [address] 54307- 1082 02 Aug, 2016 Major depressive disorder, recurrent, moderate F33.1 ; Anxiety disorder, unspecified F41.9 and 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 [place] [id number] [place] [address] 30622- 8428 July, [place] [id number] [place] [address] 42042- 5218 July, [facility] [id number] [place] [address] 61536- 3075 July, [facility] [id number] [place] [address] 24623- 8583 July, Diabetes E11.9 [facility] [id number] [place] [address] 10319- 8877 Jun, Major depressive disorder, recurrent, moderate F33.1 [facility] [address] [place] [address] 39734- 6999 Jun, Major depressive disorder, recurrent, moderate F33.1 ; 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 ; Generalized anxiety disorder F41.1 and Bipolar disorder, unspecified F31.9 [facility] [address] [id number]- 8112 Jun, Diabetes E11.9 ; Migraine G43.909 ; Thrush B37.0 and Wheezing R06.2 [facility] [address] [id number] Jun, Dental examination Z01.20 [facility] [address] 23675- 8090 Jun, [facility] [address] [place] [address] 340968- 8126 Jun, Major depressive disorder, recurrent, moderate F33.1 ; Anxiety disorder, unspecified F41.9 and 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 [facility] [address] 37351- 0607 Jun, [facility] [address] 38781- 8229 Jun, Wheezing R06.2 [facility] [address] [id number] Jun, Dental caries K02.9 [facility] [address] 44233- 1170 Jun, Major depressive disorder, recurrent, moderate F33.1 ; Anxiety disorder, unspecified F41.9 and 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 [facility] [id number] [place] [address] 92763- 9206 Jun, RLQ abdominal pain R10.31 ; Diabetes E11.9 ; Obesity, unspecified obesity severity, unspecified obesity type E66.9 ; Wheezing R06.2 and Abnormal urinalysis R82.90 [facility] [address] 41768- 1280 May, [facility] [address], [place] [address]- 6957 May, Well woman exam Z01.419 ; Breast cancer screening Z12.39 ; Cervical cancer screening Z12.4 ; Urinary frequency R35.0 ; Edema, unspecified type R60.9 and Chronic constipation K59.09 [facility] [id number] [place] [address] 87468- 0895 08 May, 2016 Major depressive disorder, recurrent, moderate F33.1 ; Anxiety disorder, unspecified F41.9 and 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 [facility] [address] [place] [address] [id number] May, Dental examination Z01.20 [facility] [id number] [place] [address] 82859- 3937 May, [facility] [id number] [place] [address] 71187- 7376 May, [facility] [address] [place] [address] 60904- 2767 May, Chronic constipation K59.09 [facility] [id number] [place] [address] 34582- 6703 Apr, [facility] [id number] [place] [address] 94299- 2805 Apr, Major depressive disorder, recurrent, moderate F33.1 ; Anxiety disorder, unspecified F41.9 and 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 [facility] [id number] [place] [address] 00699- 6759 Apr, [facility] [id number] [place] [address] 00702- 3886 Mar, Major depressive disorder, recurrent, moderate F33.1 [facility] [address] [place] [address] 18455- 8371 25 Americ[place], 2017 Major depressive disorder, recurrent, moderate F33.1 ; Generalized anxiety disorder F41.1 and Bipolar I disorder, most recent episode depressed with anxious distress F31.30 [place] [address] 52005- 1762 17 Mar, 2016 Diabetes E11.9 ; Non morbid obesity due to excess calories E66.09 ; Breast cancer screening Z12.39 and Encounter for immunization Z23 [place] [address] 50859- 6909 17 Mar, 2016 Major depressive disorder, recurrent, moderate F33.1 ; Anxiety disorder, unspecified F41.9 and 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 [place] [address] 82786- 6647 Mar, [place] [id number] [place] [address] 19213- 9163 Feb, Major depressive disorder, recurrent, moderate F33.1 ; Anxiety disorder, unspecified F41.9 and 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 [place] [id number] [place] [address] 26855- 7298 Feb, [place] [address] 55528- 9676 Feb, [place] [id number] [place] [address] 29965- 1724 Jan, Major depressive disorder, recurrent, moderate F33.1 ; Generalized anxiety disorder F41.1 and Bipolar disorder, current episode depressed, severe, without psychotic features F31.4 [place] [address] [place] [address] 44461- 6421 18 Jan, 2016 Major depressive disorder, recurrent, moderate F33.1 ; Anxiety disorder, unspecified F41.9 and 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 [place] [id number] [place] [address] 29496- 9304 16 Jan, 2016 Bronchitis J40 [place] [address] [facility] [id number], [place] [address]- [address] 15 Jan, 2016 [facility] [address] [facility] [id number], [place] [address]- 7662 Jan, [facility] [address] [facility] [id number], [place] [address]- 3643 Jan, Elbow injury, right, initial encounter S59.901A ; Multiple contusions T14.8 and Cervical strain, acute, initial encounter S16.1XXA [facility] [address] [facility] [id number], [place] [address]- 9514 Dec, Major depressive disorder, recurrent, moderate F33.1 ; Generalized anxiety disorder F41.1 and Bipolar disorder with depression F31.30 [facility] [address], [place] [address]- 4909 Dec, [facility] [address], [place] [address]- 1276 Dec, [facility] [address], [place] [address]- 3902 Dec, [facility] [address], [place] [address]- 5410 Dec, [facility] [id number], [place] [address]- 7622 Dec, Yeast infection B37.9 [facility] [id number], [place] [address]- 6765 Dec, Pneumonia of both lungs due to methicillin resistant Staphylococcus aureus (MRSA), unspecified part of lung J15.212 and Benzodiazepine overdose, accidental or unintentional, subsequent encounter T42.4X1D [facility] [id number], [place] [address]- 1895 Dec, [facility] [id number], [place] [address]- 4346 Dec, [facility] [id number] [place] [address] 49660- 7295 Dec, Knee pain, left M25.562 and Edema, unspecified type R60.9 [place] [address] [place] [address] 340968- 0525 Dec, [place] [address] 199715- 8238 Dec, Anxiety disorder, unspecified F41.9 and Bipolar disorder, unspecified F31.9 [place] [address] 04583- 9471 Nov, Major depressive disorder, recurrent, moderate F33.1 ; Anxiety disorder, unspecified F41.9 and 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 [place] [id number] [place] [address] 83848- 2023 Nov, [place] [address] 91225- 0236 Nov, Migraine without aura and without status migrainosus, not intractable G43.009 [place] [address] 20248- 7537 Nov, Migraine G43.909 [place] [id number] [place] [address] 00993- 4077 Nov, [place] [id number] [place] [address] 57521- 1425 Nov, Major depressive disorder, recurrent, moderate F33.1 ; Anxiety disorder, unspecified F41.9 and 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 [place] [address] 17192- 1741 Oct, Chronic constipation K59.09 and Obesity, unspecified obesity severity, unspecified obesity type E66.9 [place] [id number] [place] [address] 41482- 6269 Oct, Obesity, unspecified obesity severity, unspecified obesity type E66.9 ; Chronic constipation K59.09 and Anxiety disorder, unspecified F41.9 [place] [id number] [place] [address] 90151- 4190 Oct, [place] [id number] [place] [address] 33059- 0715 Sep, Diabetes E11.9 ; Edema, unspecified type R60.9 ; Varicose vein of leg I83.90 and Obesity, unspecified obesity severity, unspecified obesity type E66.9 [place] [id number] [place] [address] 89853- 1369 Sep, Edema, unspecified type R60.9 ; Diabetes E11.9 and Knee pain , left M25.562 [place] [id number] [place] [address] 06156- 2119 Sep, [place] [address] 65413- 9339 Sep, [place] [id number] [place] [address] 14684- 4806 Sep, Major depressive disorder, recurrent, moderate F33.1 ; Generalized anxiety disorder F41.1 and Bipolar disorder, unspecified F31.9 [place] [id number] [place] [address] 66410- 2382 Aug, Chondromalacia of left knee M94.262 [place] [id number] [place] [address] 64288- 8444 Aug, Major depressive disorder, recurrent, moderate F33.1 ; Anxiety disorder, unspecified F41.9 and 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 [place] [id number] [place] [address] 69562- 9695 Aug, [place] [id number] [place] [address] 63575- 4205 Aug, Osteoarthritis of left knee M17.9 [place] [id number] [place] [address] 10302- 0414 Aug, [place] [address] 96553- 7212 July, Major depressive disorder, recurrent, moderate F33.1 ; Anxiety disorder, unspecified F41.9 and 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 [place] [address] 74959- 5523 July, [place] [address] 38256- 9409 July, Chronic constipation K59.09 [place] [address] [address] Jun, [place] [address] [address] Jun, [place] [address] [address] 14 Jun, 2015 Osteoarthritis of left knee M17.9 [place] [address] [address] Jun, [place] [address] [address] [place] [id number] [place] [address] Jun, Generalized anxiety disorder F41.1 ; Bipolar disorder, unspecified F31.9 and Major depressive disorder, recurrent, moderate F33.1 [place] [address] [address] [place] [id number] [place] [address] Jun, Migraine G43.909 [place] [address] [address] 07 Jun, 2015 Left knee pain M25.562 ; Chronic constipation K59.09 ; Dry mouth R68.2 ; Yeast vaginitis B37.3 and Memory loss R41.3 [facility] [id number] [place] [address] 34588- 6686 Jun, [facility] [id number] [place] [address] 72772- 3632 May, [facility] [id number] [place] [address] 82502- 5326 May, [facility] [id number] [place] [address] 68740- 9139 May, [facility] [address] 70703- 1712 May, [facility] [id number] [place] [address] 15572- 6921 May, Acute bronchitis with COPD J44.0 ; Knee pain, left M25.562 and Encounter for tobacco use cessation counseling Z71.6 [facility] [id number] [place] [address] 63195- 8563 May, [facility] [id number] [place] [address] 24883- 4014 Apr, Diabetes E11.9 ; TMJ (sprain of temporomandibular joint) S03.4XXA ; Tobacco abuse Z72.0 ; Migraine G43.909 and Anxiety F41.9 [facility] [id number] [place] [address] 27891- 3666 Apr, Generalized anxiety disorder F41.1 and Bipolar disorder, unspecified F31.9 [facility] [id number] [place] [address] 45954- 3755 Apr, Major depressive disorder, recurrent, moderate F33.1 ; Anxiety disorder, unspecified F41.9 and 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 [facility] [id number] [place] [address] 92848- 2209 Apr, [place] [id number] [place] [address] 46725- 0090 Mar, [facility] [id number] [place] [address] 64926- 6135 Feb, [facility] [address] [place] [address] 10922- 4365 Feb, Major depressive disorder, recurrent, moderate F33.1 ; Anxiety disorder, unspecified F41.9 and 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 [facility] [place] [id number] [place] [address] 90313- 3276 Feb, [facility] [id number] [place] [address] 53559- 4815 Feb, Generalized anxiety disorder F41.1 and Bipolar disorder, unspecified F31.9 [facility] [id number] [place] [address] 18960- 1968 Jan, [facility] [id number] [place] [address] 29764- 1884 Jan, [facility] [address] 31818- 0206 Jan, Bipolar disorder, unspecified F31.9 and Generalized anxiety disorder F41.1 [facility] [id number] [place] [address] 34805- 3372 Dec, [facility] [id number] [place] [address] 25547- 7108 Dec, Bipolar disorder, unspecified F31.9 and Generalized anxiety disorder F41.1 [facility] [id number] [place] [address] 87565- 9998 Dec, Generalized anxiety disorder F41.1 and Major depressive disorder, recurrent, moderate F33.1 [facility] [id number] [place] [address] 16724- 8044 Oct, Headache 784.0 ; Cough 786.2 ; Vomiting and diarrhea 787.03 and Dysuria 788.1 [place] [id number] [place] [address] 12780- 6205 Aug, [place] [id number] [address]- 3322 Aug, Headache 784.0 and Shortness of breath 786.05 [facility] [id number], [place] [address]- 3035 Aug, [facility] [id number] [address]- 9221 Aug, Migraine 346.90 [facility] [id number] [place] [address] 21745- 8088 Jun, [facility] [id number] [place] [address] 02213- 1678 Jun, [facility] [id number] [address]- 1481 May, [facility] [id number] [place] [address] 70026- 3339 May, [facility] [id number], [place] [address]- 9429 May, [facility] [id number], [place] [address]- 1450 May, [facility] [id number], [place] [address]- 0310 May, [facility] [id number], [place] [address]- 1188 May, [facility] [id number], [place] [address]- 0376 Apr, [facility] [id number] 2760 Apr, [facility] [id number] 6494 Apr, [facility] [address], [place] [address]- 9744 Apr, [facility] [place] [facility] [address] [id number] [place] [address]- 5128 Apr, [facility] [place] [facility] [address] [id number] [place] [address]- 5821 Mar, [facility] [place] [facility] [address] [id number] [place] [address]- 7619 Mar, [facility] [place] [facility] [address] [id number] [place] [address]- 4547 Mar, [facility] [place] [facility] [address] [id number] [place] [address]- 4890 Mar, [facility] [place] [facility] [address] [id number] [place] [address]- 1540 Feb, [facility] [place] [facility] [address] [id number] [place] [address]- 0801 Feb, [facility] [place] [facility] [address] [id number] [place] [address]- 9020 Feb, [facility] [place] [facility] [address] [id number] [place] [address]- 7103 Feb, [facility] [place] [facility] [address] [id number] [place] [address]- 2958 Feb, [facility] [place] [facility] [address] [id number] [place] [address]- 4915 Feb, [facility] [place] [facility] [address] [id number] [place] [address]- 9582 Feb, [facility] [place] [facility] [address] [id number] [place] [address]- 3154 Feb, [facility] [place] [facility] [address] [id number] [place] [address]- 6710 Feb, [facility] [place] [facility] [address] [id number] [place] 0406 Feb, [facility] [place] [facility] [address] [id number] [place] [address]- 1041 Feb, [facility] [place] [facility] [address] [id number] [place] 7146 Feb, [facility] [place] [facility] [address] [id number] [place] 4781 Jan, [facility] [place] [facility] [address] [id number] [place] [address]- 5570 Jan, [facility] [place] [facility] [address] [id number] [place] [address]- 0184 Dec, [facility] [place] [facility] [address] [id number] [place] [address]- 5520 Dec, [facility] [place] [facility] [address] [id number] [place] [address]- 4529 Dec, [facility] [place] [facility] [address] [id number] [place] [address]- 8456 Dec, [facility] [place] [facility] [address] [id number] [place] [address]- 2067 Dec, [facility] [place] [facility] [address] [id number] [place] [address]- 4370 Dec, [facility] [place] [facility] [address] [id number] [place] [address]- 4236 Sep, [facility] [place] [facility] [address] [id number] [place] [address]- 1200 Sep, [facility] [place] [facility] [address] [id number] [place] [address]- 9489 Sep, [facility] [place] [facility] [address] [id number] [place] [address]- 6878 Sep, [facility] [place] [facility] [address] [id number] [place] [address]- 3964 Sep, [facility] [place] [facility] [address] [id number] [place] [address]- 5335 Sep, [facility] [place] [facility] [address] [id number] [place] [address]- 9944 07 Sep, 2013 [facility] [place] [facility] [address] [id number] [place] [address]- 1503 07 Sep, 2013 [facility] [place] [facility] [address] [id number] [place] [address]- 2246 Sep, 2013 [facility] [place] [facility] [address] [id number] [place] [address]- 9928 Sep, [facility] [place] [facility] [address] [id number] [place] [address]- 2215 24 Aug, 2013 [facility] [place] [facility] [address] [id number] [place] [address]- 8868 Aug, [facility] [place] [facility] [address] [id number] [place] [address]- 2469 Aug, [facility] [place] [facility] [address] [id number] [place] [address]- 3286 Aug, [facility] [place] [facility] [address] [id number] [place] [address]- 6242 Aug, [facility] [place] [facility] [address] [id number] [place] [address]- 0858 Aug, [facility] [place] [facility] [address] [id number] [place] [address]- 7252 14 Aug, 2013 [facility] [place] [facility] [address] [id number] [place] [address]- 7289 Aug, [facility] [place] [facility] [address] [id number] [place] [address]- 8946 Aug, [facility] [place] [facility] [address] [id number] [place] [address]- 2561 05 Aug, 2013 [facility] [place] [facility] [address] [id number] [place] [address]- 9084 05 Aug, 2013 [facility] [place] [facility] [address] [id number] [place] [address]- 9289 Aug, [facility] [place] [facility] [address] [id number] [place] [address]- 9520 Aug, [facility] [place] [facility] [address] [id number] [place] [address]- 3452 July, [facility] [place] [facility] [address] [id number] [place] [address]- 5674 July, [facility] [place] [facility] [address] [id number] [place] [address]- 2918 July, [facility] [place] [facility] [address] [id number] [place] [address]- 1628 July, [facility] [place] [facility] [address] [id number] [place] [address]- 0180 July, [facility] [place] [facility] [address] [id number] [place] [address]- 0740 July, [facility] [place] [facility] [address] [id number] [place] [address]- 8997 July, [facility] [place] [facility] [address] [id number] [place] [address]- 2421 Jun, [facility] [place] [facility] [address] [id number] [place] [address]- 3471 Jun, [facility] [place] [facility] [address] [id number] [place] [address]- 2659 Jun, [facility] [place] [facility] [address] [id number] [place] [address]- 4173 Jun, [facility] [place] [facility] [address] [id number] [place] [address]- 5238 Jun, [facility] [place] [facility] [address] [id number] [place] [address]- 9320 Jun, [facility] [place] [facility] [address] [id number] [place] [address]- 2267 Jun, [facility] [place] [facility] [address] [id number] [place] [address]- 8177 17 May, 2013 [facility] [place] [facility] [address] [id number] [place] [address]- 2781 17 May, 2013 [facility] [place] [facility] [address] [id number] [place] [address]- 5910 14 May, 2013 [facility] [place] [facility] [address] [facility] [id number] [place] [address]- 9186 14 May, 2013 [facility] [place] [facility] [address] [id number] [place] [address]- 1218 13 May, 2013 [facility] [place] [facility] [address] [id number] [place] [address]- 5126 13 May, 2013 [facility] [place] [facility] [address] [facility] [id number] [place] [address]- 9181 10 May, 2013 [facility] [place] [facility] [address] [facility] [id number] [place] [address]- 5126 10 May, 2013 [facility] [place] [facility] [address] [facility] [id number] [place] [address]- 9013 07 May, 2013 [facility] [place] [facility] [id number] [address]- 8175 26 Apr, 2013 [facility] [place] [facility] [address] [facility] [id number] [place] [address]- 8591 26 Apr, 2013 [facility] [place] [facility] [address] [facility] [id number] [place] [address]- 5154 18 Apr, 2013 [facility] [place] [facility] [address] [facility] [id number] [place] [address]- 7460 15 Apr, 2013 [facility] [place] [facility] [address] [id number] [place] [address]- 2313 15 Apr, 2013 [facility] [place] [facility] [address] [facility] [id number] [place] [address]- 4700 11 Apr, 2013 [facility] [place] [facility] [address] [facility] [id number] [place] [address]- 5923 Apr, [facility] [place] [facility] [address] [id number] [place] [address]- 1052 Apr, [facility] [place] [facility] [address] [id number] [place] [address]- 1559 Apr, [facility] [place] [facility] [address] [id number] [place] [address]- 2737 Apr, [facility] [place] [facility] [address] [id number] [place] [address]- 6881 Mar, [facility] [place] [facility] [address] [id number] [place] [address]- 6481 Mar, [facility] [place] [facility] [address] [id number] [place] [address]- 1787 Mar, [facility] [place] [facility] [address] [id number] [place] [address]- 7394 Mar, [facility] [place] [facility] [address] [id number] [place] [address]- 6818 Mar, [facility] [place] [facility] [address] [id number] [place] [address]- 0658 Mar, [facility] [place] [facility] [address] [id number], [place] [address]- 5855 Mar, [facility] [place] [facility] [address] [id number], [place] [address]- 8050 Mar, [facility] [place] [facility] [address] [id number], [place] [address]- 7241 Feb, [facility] [place] [facility] [address] [id number] [place] [address]- 0749 Feb, [facility] [place] [facility] [address] [id number], [place] [address]- 6597 Jan, [facility] [place] [facility] [address] [id number] [place] [address]- 0193 Jan, [facility] [place] [facility] [address] [id number] [place] [address]- 9133 15 Jan, 2013 [facility] [place] [facility] [address] [id number] [place] [address]- 9695 15 Jan, 2013 [facility] [place] [facility] [address] [id number] [place] [address]- 2170 Jan, [facility] [place] [facility] [address] [id number] [place] [address]- 8270 Jan, [facility] [place] [facility] [address] [id number] [place] [address]- 1809 05 Jan, 2013 [facility] [place] [facility] [address] [id number] [place] [address]- 6926 05 Jan, 2013 [facility] [place] [facility] [address] [id number] [place] [address]- 6590 Dec, [facility] [place] [facility] [address] [id number] [place] [address]- 0661 Dec, [facility] [place] [facility] [address] [id number] [place] [address]- 0386 10 Dec, 2012 [facility] [place] [facility] [address] [id number] [place] [address]- 2082 20 Nov, 2012 [facility] [place] [facility] [address] [id number] [place] [address]- 9224 13 Nov, 2012 [facility] [place] [facility] [address] [id number] [place] [address]- 0179 12 Nov, 2012 [facility] [place] [facility] [address] [id number] [place] [address]- 2543 09 Nov, 2012 [facility] [place] [facility] [address] [id number] [place] [address]- 1326 06 Nov, 2012 [facility] [place] [facility] [address] [id number] [place] [address]- 7516 06 Nov, 2012 [facility] [place] [facility] [address] [id number] [place] [address]- 6826 Oct, [facility] [place] [facility] [address] [id number] [place] [address]- 2008 Oct, [facility] [place] [facility] [address] [id number] [place] [address]- 4195 Sep, [facility] [place] [facility] [address] [id number] [place] [address]- 4361 Sep, [facility] [place] [facility] [address] [id number] [place] [address]- 1369 Sep, [facility] [place] [facility] [address] [id number] [place] [address]- 5571 Sep, [facility] [place] [facility] [address] [id number] [place] [address]- 9777 Sep, [facility] [place] [facility] [address] [id number] [place] [address]- 3863 Sep, [facility] [place] [facility] [address] [id number] [place] [address]- 4533 Sep, [facility] [place] [facility] [address] [id number] [place] [address]- 5732 Aug, [facility] [place] [facility] [address] [id number] [place] [address]- 4945 Aug, [facility] [place] [facility] [address] [id number] [place] [address]- 9283 Aug, [facility] [place] [facility] [address] [id number] [place] [address]- 0437 Aug, [facility] [place] [facility] [address] [id number] [place] [address]- 0959 Aug, [facility] [place] [facility] [address] [id number] [place] [address]- 8809 Aug, [facility] [place] [facility] [address] [id number] [place] [address]- 7637 July, [facility] [place] [facility] [address] [id number] [place] [address]- 0665 July, [facility] [address] [id number] [place] 8502 July, [facility] [address] [id number] [place] [address]- 2962 July, [facility] [address] [id number] [place] [address]- 1043 July, [facility] [address] [id number] [place] [address]- 8814 July, [facility] [address] [id number] [place] [address]- 1294 Jun, [facility] [address] [id number] [place] [address]- 9114 Jun, [facility] [address] [id number] [place] [address]- 3879 Jun, [facility] [place] [facility] [address] [id number] [place] [address]- 4263 Jun, [facility] [address] [id number] [place] [address]- 0894 Jun, [facility] [place] [facility] [address] [id number] [place] [address]- 6593 Jun, [facility] [place] [facility] [address] [id number] [place] [address]- 4072 Jun, [facility] [place] [facility] [address] [id number], [place] [address]- 0413 May, [facility] [place] [facility] [address] [id number] [place] [address]- 6566 May, [facility] [place] [facility] [address] [id number] [place] [address]- 5563 Apr, [facility] [place] [facility] [address] [id number] [place] [address]- 8938 Apr, [facility] [place] [facility] [address] [id number] [place] [address]- 2823 18 Apr, 2012 [facility] [address] [id number] [place] [address]- 0316 18 Apr, 2012 [facility] [place] [facility] [address] [id number] [place] [address]- 2546 12 Apr, 2012 [facility] [place] [facility] [address] [id number] [place] [address]- 0738 08 Apr, 2012 [facility] [place] [facility] [address] [id number] [place] [address]- 2541 07 Apr, 2012 [facility] [place] [facility] [address] [id number] [place] [address]- 7663 Apr, 2012 [facility] [address] [facility] [id number] [place] [address]- 8897 Apr, 2012 [facility] [place] [facility] [address] [id number] [place] [address] Apr, [facility] [address] [id number] [place] [address] Apr, [facility] [address] [facility] [id number] [place] [address] Mar, [facility] [place] [facility] [address] [id number] [place] [address] Mar, [facility] [place] [facility] [address] [id number], [place] [address] Mar, [facility] [place] [facility] [address] [id number] [place] [address] Mar, [facility] [place] [facility] [address] [id number] [place] [address] Mar, [facility] [place] [facility] [address] [id number] [place] [address] Mar, [facility] [place] [facility] [address] [id number] [place] [address] 15 Mar, 2012 [facility] [address] [id number] [place] [address] 15 Mar, 2012 [facility] [place] [facility] [address] [id number] [place] [address] 365[address] Mar, [facility] [address] [id number] [place] [address]161 Mar, [facility] [place] [facility] [address] [id number] [place] [address] Mar, [facility] [address] [id number] [place] [address] Mar, [facility] [address] [id number] [place] [address] 84[address] Mar, [facility] [address] [id number] [place] [address]270 Feb, [facility] [place] [facility] [address] [id number] [place] [address] Feb, [facility] [address] [id number] [place] [address]- [address]26 18 Feb, 2012 [facility] [place] [facility] [address] [id number] [place] [address] 18 Feb, 2012 [facility] [address] [id number] [place] [address] 6586 11 Feb, 2012 [facility] [place] [facility] [address] [id number] [place] [address] 9813 11 Feb, 2012 [facility] [place] [facility] [address] [id number] [place] [address]- 3665 10 Feb, 2012 [facility] [place] [facility] [address] [id number] [place] [address]- 9[address] 10 Feb, 2012 [facility] [place] [facility] [address] [id number] [place] [address]- 8667 10 Feb, 2012 [facility] [place] [facility] [address] [id number] [place] [address] 4947 Feb, [facility] [place] [facility] [address] [id number] [place] [address]645 Feb, [facility] [place] [facility] [address] [id number] [place] [address] Feb, [facility] [place] [facility] [address] [id number] [place] [address] 6466 Feb, [facility] [place] [facility] [address] [id number] [place] [address]- [address] Feb, [facility] [place] [facility] [address] [id number] [place] [address]- 477[address] Feb, [facility] [place] [facility] [address] [id number] [place] [address]678 Jan, [facility] [place] [facility] [address] [id number] [place] [address]204 Jan, [facility] [place] [facility] [address] [id number] [place] [address]358 Jan, [facility] [place] [facility] [address] [id number] [place] [address] 3183 Jan, [facility] [place] [facility] [address] [facility] [id number] [place] [address] 75[address] Dec, [facility] [place] [facility] [address] [id number] [place] [address] 4[address] Dec, [facility] [place] [facility] [address] [id number] [place] [address] Dec, [facility] [place] [facility] [address] [id number] [place] [address] Dec, [facility] [place] [facility] [address] [id number] [place] [address]- 7436 Dec, [facility] [place] [facility] [address] [id number] [place] [address]- 5714 Dec, [facility] [place] [facility] [address] [id number] [place] [address]- [address]293 16 Dec, 2011 [facility] [place] [facility] [address] [id number] [place] [address]300 16 Dec, 2011 [facility] [place] [facility] [address] [id number] [place] [address]- [address]289 07 Dec, 2011 [facility] [place] [facility] [address] [id number] [place] [address]- 48[address] 04 Dec, 2011 [facility] [place] [facility] [address] [id number] [place] [address]- 1209 03 Dec, 2011 [facility] [place] [facility] [address] [id number] [place] [address]- [address]170 25 Sep, 2011 [facility] [place] [facility] [address] [id number] [place] [address]- 1514 24 Sep, 2011 [facility] [place] [facility] [address] [id number] [place] [address]- 6254 20 Sep, 2011 [facility] [place] [facility] [address] [id number] [place] [address]- 4149 19 Sep, 2011 [facility] [place] [facility] [address] [id number] [place] [address]- 0666 17 Sep, 2011 [facility] [place] [facility] [address] [id number], [place] [address] 16 Sep, 2011 [facility] [place] [facility] [address] [id number], [place] [address]- [address] 14 Sep, 2011 [facility] [place] [facility] [address] [id number] [place] [address] 2543 13 Sep, 2011 [facility] [place] [facility] [address] [id number] [place] [address]- 9026 12 Sep, 2011 [facility] [place] [facility] [address] [id number] [place] [address]- 1391 07 Sep, 2011 [facility] [place] [facility] [address] [id number] [place] [address]- 8035 06 Nov, 2011 [facility] [place] [facility] [address] [id number] [place] [address]- 0492 06 Nov, 2011 [facility] [place] [facility] [address] [id number] [place] [address]- 4223 05 Nov, 2011 [facility] [place] [facility] [address] [id number] [place] [address]- 6866 Oct, [facility] [place] [facility] [address] [id number] [place] [address]- 2563 Oct, [facility] [place] [facility] [address] [id number] [place] [address]- 488[address] Oct, [facility] [place] [facility] [address] [id number] [place] [address]- 5129 Oct, [facility] [place] [facility] [address] [id number] [place] [address]- 0671 Oct, [facility] [place] [facility] [address] [id number] [place] [address] Oct, [facility] [place] [facility] [address] [id number] [place] [address] Oct, [facility] [place] [facility] [address] [id number] [place] [address] 16 Oct, 2011 [facility] [place] [facility] [address] [id number] [place] [address] 15 Oct, 2011 [facility] [place] [facility] [address] [id number] [place] [address] Oct, [facility] [place] [facility] [address] [id number] [place] [address] Oct, [facility] [place] [facility] [address] [id number] [place] [address] Sep, [facility] [place] [facility] [address] [id number] [place] [address] Sep, [facility] [place] [facility] [address] [id number] [place] [address] Sep, [facility] [place] [facility] [address] [id number] [place] [address] Sep, [facility] [place] [facility] [address] [id number] [place] [address] Sep, [facility] [place] [facility] [address] [id number] [place] [address] Sep, [facility] [place] [facility] [address] [id number] [place] [address] Aug, [facility] [place] [facility] [address] [id number] [place] [address] July, [facility] [place] [facility] [address] [id number] [place] [address] July, [facility] [place] [facility] [address] [id number] [place] [address] Jun, [facility] [place] [facility] [address] [id number] [place] [address] Jun, [facility] [place] [facility] [address] [id number] [place] [address]68 Jun, [facility] [place] [facility] [address] [id number] [place] [address] Jun, [facility] [place] [facility] [address] [id number] [place] [address] Jun, [facility] [place] [facility] [address] [id number] [place] [address] 25[address] Jun, [facility] [place] [facility] [address] [id number] [place] [address] 09 Jun, 2011 [facility] [place] [facility] [address] [id number] [place] [address] 08 Jun, 2011 [facility] [place] [facility] [address] [id number] [place] [address] Jun, [facility] [place] [facility] [address] [id number] [place] [address] Jun, [facility] [place] [facility] [address] [id number] [place] [address] Jun, [facility] [place] [facility] [address] [facility] [id number] [place] [address] 19 May, 2011 [facility] [place] [facility] [address] [facility] [id number] [place] [address]6 16 May, 2011 [facility] [place] [facility] [address] [id number] [place] [address] 14 May, 2011 [facility] [place] [facility] [address] [facility] [id number] [place] [address] 06 May, 2011 [facility] [place] [facility] [address] [facility] [id number] [place] [address] 28 Apr, 2011 [facility] [place] [facility] [address] [facility] [id number] [place] [address]99 Apr, [facility] [place] [facility] [address] [id number] [address] Apr, [facility] [place] [facility] [address] [facility] [id number] [place] [address] Apr, [facility] [place] [facility] [address] [id number] [place] [address] Apr, [facility] [place] [facility] [address] [facility] [id number] [place] [address] 7686 Apr, [facility] [place] [facility] [address] [facility] [id number] [place] [address] 7860 Apr, [facility] [place] [facility] [address] [facility] [id number] [place] [address] Apr, [facility] [place] [facility] [address] [id number] [place] [address] Mar, [facility] [place] [facility] [address] [id number] [place] [address]283 Mar, [facility] [place] [facility] [address] [id number] [place] [address] 0019 Mar, [facility] [place] [facility] [address] [id number] [place] [address]75 Mar, [facility] [place] [facility] [address] [id number] [place] [address] 17 Mar, 2011 [facility] [place] [facility] [address] [id number] [place] [address]24 13 Mar, 2011 [facility] [place] [facility] [address] [id number] [place] [address]60 Mar, [facility] [place] [facility] [address] [id number] [place] [address] Mar, [facility] [address] [id number] [place] [address] Mar, [facility] [address] [id number] [place] [address] 2[address] Mar, [facility] [place] [facility] [address] [id number] [place] [address] 119[address] Mar, [facility] [place] [facility] [address] [id number] [place] [address]- 0943 Mar, [facility] [place] [facility] [address] [id number] [place] [address] 2508 Mar, [facility] [place] [facility] [address] [id number] [place] [address] 3412 Mar, [facility] [place] [facility] [address] [id number] [place] [address] 2621 Mar, [facility] [place] [facility] [address] [id number] [place] [address] 9090 Mar, [facility] [place] [facility] [address] [id number] [place] [address] Feb, [facility] [address] [facility] [id number][place] [address] Feb, [facility] [address] [facility] [id number], [place] [address] Feb, [facility] [address] [facility] [id number], [place] [address] Jan, [facility] [address] [facility] [id number], [place] [address] Jan, [facility] [address] [facility] [id number] [place] [address] Jan, [facility] [address] [facility] [id number], [place] [address] 39[address] Dec, [facility] [address] [facility] [id number], [place] [address] Dec, [facility] [address] [facility] [id number], [place] [address] Nov, [facility] [address] [facility] [id number], [place] [address] Oct, [facility] [address] [id number], [place] [address] Oct, [facility] [address] [id number], [place] [address] Oct, [facility] [address] [facility] [id number], [place] [address] Sep, [facility] [address] [facility] [id number], [place] [address]- [address]678 Apr, [facility] [address] [facility] [id number], [place] [address] Feb, [facility] [address] [id number], [place] [address] Jan, IMMUNIZATIONS No Known Immunizations SOCIAL HISTORY Never Assessed REASON FOR VISIT sore throat, cough, congestion, SOB, headache, chills x 3 weeks----DBrgttRCarlita, finished script for steroids from Dr. Trivedi's office, but symptoms persist PLAN OF CARE Activity Details Follow Up 2 Weeks with PCP [facility] Reason: VITAL SIGNS Height 70 in 2016-12-30 Weight 256 lbs 2016-12-30 Temperature 97.9 degrees Fahrenheit 2016-12-30 Heart Rate 90 bpm 2016-12-30 Respiratory Rate 20 2016-12-30 Oximetry 97 % 2016-12-30 BMI 36.73 kg/m2 2016-12-30 Blood pressure systolic 126 mmHg 2016-12-30 Blood pressure diastolic 98 mmHg 2016-12-30 MEDICATIONS Medication Instructions Dosage Frequency Start Date End Date Duration Status Topamax 100 mg Orally Twice a day 1 tablet 12h 30 Active Zyprexa 15 MG Orally Once a day 1 tablet 24h Jan, 30 days Active Trulicity 0.75 MG/0.5ML Subcutaneous once weekly 0.5 ml Jun, 90 days Active Amitriptyline HCl 150 MG Orally repository Once a day 1 tablet 24h 30 days Not-Taking Cymbalta 60 mg Orally PALS Twice a day 1 capsule 12h Feb, 30 days Active Spiriva HandiHaler 18 MCG Inhalation Once a day 1 capsule 24h Active Oxygen Active Wellbutrin SR 150 MG Orally Twice a day 1 tablet 12h Aug, 30 days Not-Taking Neurontin 300 MG Orally Three times a day 1 capsule 8h Dec, 30 days Not-Taking Abilify 5 mg Orally Once a day 1 tablet 24h Jun, 30 days Active Alprazolam 0.5 MG Orally Twice a day 1 tablet as needed 12h Active Zyrtec Allergy 10 MG Orally Once a day 1 tablet 24h Active Multivitamin Adult - Not-Taking Ventolin HFA 90 mcg/actuation Inhalation every 4 hrs 2 puffs as needed 4h Dec, Active Chantix Starting Month Mikie 0.5 MG X 11 & 1 MG X 42 Orally 2 times a day 0.5mg daily X 3 days, 0.5mg bid X 4 days, 1 tab bid 12h Aug, 30 days Not-Taking Advair Diskus 250 mcg-50 mcg Inhalation Twice a day 1 puff 12h Dec, Active RESULTS No Results PROCEDURES Procedure Date Ordered Result Body Site MEASURE BLOOD OXYGEN LEVEL Dec 30, 2016 INSTRUCTIONS MEDICATIONS ADMINISTERED No Known Medications [...] COPD-[facility] 12/30/2016 [facility]ization History [facility] [place] [facility]-last around 2006 or so. Hospitalization History for COPD x2 Mar 2017 Hospitalization History Upper GI bleed at apr 2017 Hospitalization History [facility]- COPD Exacerbation, diarrhea 05/23/2017 Hospitalization History COPD exacerbation-[facility] 06/13/17 Hospitalization History [facility] 09/09/2017
--- OUTSIDE RECORDS SUMMARY | 2017-11-19 13:32 | XMS REPORT ---
Author Author ALIZA CARTER Organization [facility] Address [address] [place] [address] Care Team Providers [employer] Name Role Phone ALIZA CARTER Unavailable PROBLEMS Type Condition ICD9-CM Code [id number] Code Onset Dates Condition Status SNOMED Code Problem Bipolar disorder with depression F31.30 Active 69398690 Problem Other emphysema J43.8 Active 10963597 Problem Migraine without aura and without status migrainosus, not intractable G43.009 Active 635578798 Problem Anxiety F41.9 Active 44042855 Problem COPD with exacerbation J44.1 Active 255454897 Problem Methamphetamine use disorder, moderate, 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 Active 32746220 Problem Chronic bronchitis, unspecified chronic bronchitis type J42 Active 16520878 Problem Intractable cyclical vomiting with nausea G43.A1 Active 40304870 Problem Diabetes E11.9 Active 701345208 Problem 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 Active Problem Tobacco abuse Z72.0 Active 85865217 Problem Examination of eyes and vision V72.0 Active 053386224 Problem Chronic constipation K59.09 Active 663452221 Problem Memory loss R41.3 Active 63916766 Problem Migraine G43.909 Active 18918736 Problem Bipolar disorder, unspecified F31.9 Active 80109765 Problem TMJ (sprain of temporomandibular joint) S03.4XXA Active 98846536 Problem Generalized anxiety disorder F41.1 Active 49504077 ALLERGIES Substance Reaction Event Type Date Status amitriptyline OD on medication, causes parasonias Non Drug Allergy Jun, Active Buspar 10 Mg Tablet made legs shaky Non Drug Allergy Jun, Active Benzodiazepines NARC ALERT Broke narc contract Non Drug Allergy Jun Active Narcotic NARC ALERT Broke Narc contract Non Drug Allergy Jun, Active ENCOUNTERS Encounter Location Date Diagnosis [facility] [address], [place] [address] Sep, COPD with exacerbation J44.1 and Anxiety F41.9 [facility] [address] [address] Sep, [facility] [address], [place] [address] Sep, [facility] [address] [place] [address] 94290- 4541 Sep, [facility] [address] [place] [address] 21899- 2503 Sep, Acute congestive heart failure, unspecified heart failure type I50.9 and Anxiety disorder, unspecified F41.9 [facility] [address], [place] [address] Sep, Heart failure, unspecified HF chronicity, unspecified heart failure type I50.9 [facility] [id number] [address] Sep, [facility] [address], [place] [address] Aug, Chronic obstructive pulmonary disease with acute exacerbation J44.1 [facility] [address] [address] Aug, [facility] [address], [place] [address] Aug, [facility] [address] [address] July, [facility] [address], [place] [address] July, [facility] [address], [place] [address] July, Diabetes E11.9 and Chronic obstructive pulmonary disease with acute exacerbation J44.1 [facility] [id number] [place] [address] 08139- 3110 Jun, Chronic obstructive pulmonary disease with acute exacerbation J44.1 ; Diabetes E11.9 and Tobacco abuse Z72.0 [facility] [id number] [place] [address] 37855- 7806 Jun, [facility] [id number] [place] [address] 10911- 2918 Jun, [facility] [address] [address]169- 6[address] May, [facility] [id number] [place] [address] 39755- 5031 May, [facility] [id number] [place] [address] 14776 -7783 17 May, 2017 [facility] [id number] [place] [address] 31770- 7850 16 May, 2017 [facility] [id number] [place] [address] 09738- 7191 15 May, 2017 [facility] [id number] [place] [address] 09408- 6445 14 May, 2017 Diarrhea, unspecified type R19.7 and Intractable cyclical vomiting with nausea G43.A1 [facility] [id number] [place] [address] 12833- 6310 May, [facility] [id number] [place] [address] 05239- 5857 05 May, 2017 [facility] [id number] [place] [address] 43317- 9665 Apr, COPD exacerbation J44.1 ; Esophageal candidiasis B37.81 ; Other acute gastritis with hemorrhage K29.01 and Acute posthemorrhagic anemia D62 [facility] [id number] [place] [address] 71271- 2421 Apr, Viral illness B34.9 and COPD exacerbation J44.1 [facility] [address] [place] [address] 44258 -4002 Apr, Shortness of breath R06.02 and Pneumonia of both lower lobes due to infectious organism J18.9 [facility] [id number] [place] [address] 69499 -9624 Mar, COPD with acute exacerbation J44.1 [facility] [id number] [place] [address] 84525- 8947 Mar, Chronic obstructive pulmonary disease with acute exacerbation J44.1 and Diabetes E11.9 [facility] [id number] [place] [address] 43443- 7103 Mar, [facility] [id number] [place] [address] 07788- 1153 Mar, [facility] [id number] [place] [address] 49854 -5633 Mar, COPD exacerbation J44.1 [facility] [id number] [place] [address] 61090- 8633 Mar, [facility] [id number] [place] [address] 94909- 5561 Mar, Migraine G43.909 ; Hypokalemia E87.6 and Type 2 diabetes mellitus without complications E11.9 [facility] [id number] [place] [address] 85987- 5719 Feb, [facility] [id number] [place] [address] 50964- 4107 Feb, [facility] [id number] [place] [address] 44826- 4501 Feb, Methamphetamine use disorder, moderate, 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 ; Major depressive disorder, recurrent, moderate F33.1 ; Anxiety disorder, unspecified F41.9 and Tobacco abuse Z72.0 [facility] [id number] [place] [address] 43576- 1077 Jan, Major depressive disorder, recurrent, moderate F33.1 [facility] [id number] [place] [address] 95350- 3104 16 Jan, 2017 [facility] [id number] [place] [address] 43074- 1559 Jan, [facility] [id number] [place] [address] 48712- 4354 Jan, Major depressive disorder, recurrent, moderate F33.1 [facility] [id number] [place] [address] 73832- 7096 Jan, Major depressive disorder, recurrent, moderate F33.1 ; Anxiety disorder, unspecified F41.9 ; Methamphetamine use disorder, moderate, 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 and Tobacco abuse Z72.0 [facility] [id number] [place] [address] 13779- 9570 Jan, [facility] [id number] [place] [address] 86640- 3943 Jan, Chronic obstructive pulmonary disease with acute exacerbation J44.1 and Diabetes E11.9 [facility] [address] 6[address]66- 4193 Jan, [facility] [id number] [place] [address] 27466- 6930 Jan, [facility] [id number] [place] [address] 94920- 0068 Dec, Acute respiratory failure with hypoxia J96.01 ; Chronic bronchitis, unspecified chronic bronchitis type J42 and Tobacco use Z72.0 [facility] [id number] [place] [address] 97665- 8626 Dec, [facility] [id number] [place] [address] [id number] Nov, Dental caries K02.9 and Dental examination Z01.20 [facility] [id number] [place] [address] 39192- 2615 Nov, Major depressive disorder, recurrent, moderate F33.1 ; Anxiety disorder, unspecified F41.9 and 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 [facility] [address] [id number] Oct, Dental examination Z01.20 [facility] [id number] [place] [address] 86035- 7630 Oct, [facility] [id number] [place] [address] 94554- 4466 Oct, Diabetes E11.9 and Thrush B37.0 [facility] [address] 46236- 5370 Oct, [facility] [id number] [place] [address] 29888- 8927 Oct, [facility] [id number] [place] [address] 06956- 8099 Oct, [facility] [address] [place] [address] 42648- 5646 Sep, Major depressive disorder, recurrent, moderate F33.1 ; Anxiety disorder, unspecified F41.9 and Bipolar disorder, unspecified F31.9 [facility] [address] [place] [address] 86923- 9574 Sep, Acute exacerbation of chronic obstructive pulmonary disease (COPD) J44.1 and Migraine G43.909 [facility] [address], [place] [address]- 5432 Sep, [facility] [id number] [place] [address] [id number] Sep, [facility] [address] [place] [address] 85751- 0957 Sep, Acute exacerbation of chronic obstructive pulmonary disease (COPD) J44.1 [facility] [address] [place] [address] 01543 -5401 Sep, Acute exacerbation of chronic obstructive pulmonary disease (COPD) J44.1 [facility] [address] [place] [address] 47546- 4083 Aug, [facility] [id number] [place] [address] 25101- 0261 Aug, Major depressive disorder, recurrent, moderate F33.1 ; Anxiety disorder, unspecified F41.9 and 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 [facility] [id number] [place] [address] 24269- 4359 19 Aug, 2016 Wheezing R06.2 ; Non morbid obesity due to excess calories E66.09 ; Migraine without aura and without status migrainosus, not intractable G43.009 and Tobacco abuse Z72.0 [facility] [id number] [place] [address] [id number] 14 Aug, 2016 Encounter for dental examination Z01.20 [facility] [id number] [place] [address] 69057- 4691 02 Aug, 2016 Major depressive disorder, recurrent, moderate F33.1 ; Anxiety disorder, unspecified F41.9 and 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 [facility] [id number] [place] [address] 20191- 0088 July, [facility] [id number] [place] [address] 95994- 3572 July, [facility] [id number] [place] [address] 62387- 2718 July, [facility] [id number] [place] [address] 38422- 7444 July, Diabetes E11.9 [facility] [id number] [place] [address] 85027- 1983 Jun, Major depressive disorder, recurrent, moderate F33.1 [facility] [id number] [place] [address] 36252- 0231 Jun, Major depressive disorder, recurrent, moderate F33.1 ; 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 ; Generalized anxiety disorder F41.1 and Bipolar disorder, unspecified F31.9 [facility] [id number] [place] [address] Jun, Diabetes E11.9 ; Migraine G43.909 ; Thrush B37.0 and Wheezing R06.2 [facility] [id number] Jun, Dental examination Z01.20 [facility] [address] 076028- 6395 Jun, [facility] [address] 35891- 0952 Jun, Major depressive disorder, recurrent, moderate F33.1 ; Anxiety disorder, unspecified F41.9 and 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 [facility] [id number] [place] [address] 81772- 7832 Jun, [facility] [address] 33670- 6773 Jun, Wheezing R06.2 [facility] [address] [id number] Jun, Dental caries K02.9 [facility] [id number] [place] [address] 0393 Jun, Major depressive disorder, recurrent, moderate F33.1 ; Anxiety disorder, unspecified F41.9 and Other 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 [facility] [address] [id number]- 3304 Jun, RLQ abdominal pain R10.31 ; Diabetes E11.9 ; Obesity, unspecified obesity severity, unspecified obesity type E66.9 ; Wheezing R06.2 and Abnormal urinalysis R82.90 [facility] [address] [place] [address] 82328- 6240 13 May, 2016 [facility] [id number] [place] [address] 10103- 5230 May, Well woman exam Z01.419 ; Breast cancer screening Z12.39 ; Cervical cancer screening Z12.4 ; Urinary frequency R35.0 ; Edema, unspecified type R60.9 and Chronic constipation K59.09 [facility] [id number] [place] [address] 44810- 8552 08 May, 2016 Major depressive disorder, recurrent, moderate F33.1 ; Anxiety disorder, unspecified F41.9 and 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 [facility] [id number] [place] [address] [id number] May, Dental examination Z01.20 [facility] [id number] [place] [address] 62665- 0612 May, [facility] [id number] [place] [address] 64361- 0793 May, [facility] [id number] [place] [address] 01564- 6639 May, Chronic constipation K59.09 [facility] [id number] [place] [address] 90242- 3812 Apr, [facility] [id number] [place] [address] 34022- 5286 Apr, Major depressive disorder, recurrent, moderate F33.1 ; Anxiety disorder, unspecified F41.9 and 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 [facility] [id number] [place] [address] 54394- 3175 Apr, [facility] [id number] [place] [address] 86045- 5746 Mar, Major depressive disorder, recurrent, moderate F33.1 [facility] [address] [place] [address]- 2189 Mar, Major depressive disorder, recurrent, moderate F33.1 ; Generalized anxiety disorder F41.1 and Bipolar I disorder, most recent episode depressed with anxious distress F31.30 [facility] [id number] [place] [address] 30493- 6082 Mar, Diabetes E11.9 ; Non morbid obesity due to excess calories E66.09 ; Breast cancer screening Z12.39 and Encounter for immunization Z23 [facility] [id number] [place] [address] 49513- 7951 17 Mar, 2016 Major depressive disorder, recurrent, moderate F33.1 ; Anxiety disorder, unspecified F41.9 and 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 [facility] [id number] [place] [address] 46425- 4291 Mar, [facility] [address] 24726- 5596 Feb, Major depressive disorder, recurrent, moderate F33.1 ; Anxiety disorder, unspecified F41.9 and 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 [facility] [id number] [place] [address] 93576- 1214 Feb, [facility] [id number] [place] [address] 46452- 6537 Feb, [facility] [id number] [place] [address] 15300- 7903 Jan, Major depressive disorder, recurrent, moderate F33.1 ; Generalized anxiety disorder F41.1 and Bipolar disorder, current episode depressed, severe, without psychotic features F31.4 [facility] [id number] [place] [address] 46816- 7606 Jan, Major depressive disorder, recurrent, moderate F33.1 ; Anxiety disorder, unspecified F41.9 and Other stimulant dependence with unspecified stimulant-induced disorder 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 [facility] [address] [place] [address]- 6616 Jan, Bronchitis J40 [facility] [address], [place] [address]- 4857 Jan, [facility] [address], [place] [address]- 9430 Jan, [facility] [address] [place] [address] 63473- 9092 Jan, Elbow injury, right, initial encounter S59.901A ; Multiple contusions T14.8 and Cervical strain, acute, initial encounter S16.1XXA [facility] [address] [place] [address] 94948- 2297 Dec, Major depressive disorder, recurrent, moderate F33.1 ; Generalized anxiety disorder F41.1 and Bipolar disorder with depression F31.30 [facility] [address] [place] [address] 84562- 3881 Dec, [facility] [address] [place] [address] 28433- 0079 Dec, [facility] [address] [place] [address] 10158- 2196 Dec, [facility] [address], [place] [address]- 6396 Dec, [facility] [address], [place] [address]- 6569 Dec, Yeast infection B37.9 [facility] [address] [place] [address] 56699- 8579 Dec, Pneumonia of both lungs due to methicillin resistant Staphylococcus aureus (MRSA), unspecified part of lung J15.212 and Benzodiazepine overdose, accidental or unintentional, subsequent encounter T42.4X1D [facility] [address], [place] [address]- 5497 Dec, [facility] [address] [place] [address] 59760- 3988 Dec, [facility] [id number] [place] [address] 17705- 3300 Dec, Knee pain, left M25.562 and Edema, unspecified type R60.9 [facility] [id number] [place] [address] 44950- 5835 Dec, [facility] [address] [id number]- 9139 Dec, Anxiety disorder, unspecified F41.9 and Bipolar disorder, unspecified F31.9 [facility] [id number] [place] [address]- 2559 Nov, Major depressive disorder, recurrent, moderate F33.1 ; Anxiety disorder, unspecified F41.9 and 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 [facility] [id number] [place] [address] 12894- 6270 Nov, [facility] [id number] [place] [address] 94743- 1287 Nov, Migraine without aura and without status migrainosus, not intractable G43.009 [facility] [id number] [place] [address] 78891- 4962 Nov, Migraine G43.909 [facility] [id number] [place] [address] 72630- 2367 Nov, [facility] [id number] [place] [address] 37654- 9119 Nov, Major depressive disorder, recurrent, moderate F33.1 ; Anxiety disorder, unspecified F41.9 and 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 [facility] [id number] [place] [address] 83813- 2407 Oct, Chronic constipation K59.09 and Obesity, unspecified obesity severity, unspecified obesity type E66.9 [facility] [address] [place] [address]- 4651 Oct, Obesity, unspecified obesity severity, unspecified obesity type E66.9 ; Chronic constipation K59.09 and Anxiety disorder, unspecified F41.9 [facility] [id number] [place] [address] 47208- 8310 Oct, [facility] [id number] [place] [address] 24442- 6602 Sep, Diabetes E11.9 ; Edema, unspecified type R60.9 ; Varicose vein of leg I83.90 and Obesity, unspecified obesity severity, unspecified obesity type E66.9 [facility] [address] 78939- 5882 Sep, Edema, unspecified type R60.9 ; Diabetes E11.9 and Knee pain , left M25.562 [facility] [id number] [place] [address] 22571- 6854 Sep, [facility] [id number] [place] [address] 84679- 1992 Sep, [facility] [id number] [place] [address] 81886- 3277 Sep, Major depressive disorder, recurrent, moderate F33.1 ; Generalized anxiety disorder F41.1 and Bipolar disorder, unspecified F31.9 [facility] [id number] [place] [address] 40158- 4912 Aug, Chondromalacia of left knee M94.262 [facility] [id number] [place] [address] 53821- 9837 Aug, Major depressive disorder, recurrent, moderate F33.1 ; Anxiety disorder, unspecified F41.9 and 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 [facility] [id number] [place] [address] [phone] Aug, [place] [address] [phone] Aug, Osteoarthritis of left knee M17.9 [facility] [id number] [place] [address] [id number] Aug, [facility] [id number] [place] [address] [phone] July, Major depressive disorder, recurrent, moderate F33.1 ; Anxiety disorder, unspecified F41.9 and 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 [facility] [id number] [place] [address] [phone] July, [facility] [address] [id number] 4243 July, Chronic constipation K59.09 [facility] [id number] [place] [address] 66304- 2689 Jun, [facility] [id number] [place] [address] 56989- 9825 Jun, [facility] [id number] [place] [address] 32720- 8464 14 Jun, 2015 Osteoarthritis of left knee M17.9 [facility] [id number] [place] [address] 62468- 4391 Jun, [facility] [id number] [place] [address] 15431- 6489 Jun, Generalized anxiety disorder F41.1 ; Bipolar disorder, unspecified F31.9 and Major depressive disorder, recurrent, moderate F33.1 [facility] [id number] [place] [address] 87836- 1169 Jun, Migraine G43.909 [facility] [id number] [place] [address] 21867- 9794 07 Jun, 2015 Left knee pain M25.562 ; Chronic constipation K59.09 ; Dry mouth R68.2 ; Yeast vaginitis B37.3 and Memory loss R41.3 [facility] [address], [place] [address] 6214 Jun, [facility] [id number] [place] [address] 43561- 3177 May, [facility] [id number] [place] [address] 52332- 2633 May, [facility] [id number] [place] [address] 36362- 9520 May, [facility] [id number] [place] [address] 44821- 2461 May, [facility] [id number] [place] [address] 68317- 9558 May, Acute bronchitis with COPD J44.0 ; Knee pain, left M25.562 and Encounter for tobacco use cessation counseling Z71.6 [facility] [id number] [place] [address] 70276- 4770 May, [facility] [id number] [place] [address] 58505- 3760 Apr, Diabetes E11.9 ; TMJ (sprain of temporomandibular joint) S03.4XXA ; Tobacco abuse Z72.0 ; Migraine G43.909 and Anxiety F41.9 [facility] [address], [place] [address]- 2690 Apr, Generalized anxiety disorder F41.1 and Bipolar disorder, unspecified F31.9 [facility] [id number] [place] [address] 04068- 6393 Apr, Major depressive disorder, recurrent, moderate F33.1 ; Anxiety disorder, unspecified F41.9 and 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 [facility] [address], [place] [address]- 4765 Apr, [facility] [id number] [place] [address] 29614- 5444 Mar, [facility] [id number] [place] [address] 09115- 7737 Feb, [facility] [id number] [place] [address] 00572- 5993 Feb, Major depressive disorder, recurrent, moderate F33.1 ; Anxiety disorder, unspecified F41.9 and 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 [facility] [id number] [place] [address] 55871- 4747 Feb, [facility] [id number] [place] [address] 07255- 4079 Feb, Generalized anxiety disorder F41.1 and Bipolar disorder, unspecified F31.9 [facility] [id number] [place] [address] 49856- 5886 Jan, [facility] [id number] [place] [address] 54720- 9766 Jan, [facility] [id number] [place] [address] 94156- 1703 Jan, Bipolar disorder, unspecified F31.9 and Generalized anxiety disorder F41.1 [facility] [id number] [place] [address] 55096- 2611 Dec, [facility] [id number] [place] [address] 30062- 1230 Dec, Bipolar disorder, unspecified F31.9 and Generalized anxiety disorder F41.1 [facility] [id number] [place] [address] 36061- 6953 Dec, Generalized anxiety disorder F41.1 and Major depressive disorder, recurrent, moderate F33.1 [facility] [id number] [place] [address] 71355- 7660 24 Oct, 2014 Headache 784.0 ; Cough 786.2 ; Vomiting and diarrhea 787.03 and Dysuria 788.1 [facility] [id number] [address]- 3662 Aug, [facility] [address], [place] [address]- 1008 Aug, Headache 784.0 and Shortness of breath 786.05 [facility] [address], [place] [address]- 0376 Aug, [facility] [id number] [place] [address] 46239- 7741 Aug, Migraine 346.90 [facility] [id number] [place] [address] 82218- 9161 Jun, [facility] [id number] [place] [address] 79612- 2346 Jun, [facility] [address], [place] [address]- 6003 May, [facility] [address], [place] [address]- 5442 May, [facility] [address], [place] [address]- 2145 May, [facility] [address], [place] [address]- 0876 May, [facility] [address], [place] [address]- 7382 May, [facility] [address], [place] [address]- 4152 May, [facility] [id number] [address]- 5212 Apr, [facility] [address] 6626 Apr, [facility] [id number] 9124 Apr, [facility] [id number] [place] [address]- 7861 04 Apr, 2014 [facility] [address] [id number] [place] [address]- 1580 Apr, [facility] [address] [id number] [place] [address]- 5455 Mar, [facility] [address] [id number] [place] [address]- 2834 Mar, [facility] [address] [id number] [place] [address]- 5049 Mar, [facility] [address] [id number] [place] [address]- 0585 Mar, [facility] [address] [id number] [place] [address]- 4988 Feb, [facility] [address] [id number] [place] [address]- 3277 Feb, [facility] [address] [id number] [place] [address]- 4304 Feb, [facility] [address] [id number] [place] [address]- 1859 Feb, [facility] [address] [id number] [place] [address]- 2553 16 Feb, 2014 [facility] [address] [id number] [place] [address]- 4882 16 Feb, 2014 [facility] [address] [id number] [place] [address]- 6938 Feb, [facility] [place] [facility] [address] [id number] [place] [address]- 1974 Feb, [facility] [place] [facility] [address] [id number] [place] [address]- 3494 Feb, [facility] [address] [id number] [place] [address]- 5082 Feb, [facility] [place] [facility] [address] [id number] [place] [address]- 8849 Feb, [facility] [place] [facility] [address] [id number] [place] [address]- 7731 Feb, [facility] [place] [facility] [address] [id number] [place] [address]- 4754 Jan, [facility] [place] [facility] [address] [id number] [place] [address]- 9673 Jan, [facility] [place] [facility] [address] [id number] [place] [address]- 8746 Dec, [facility] [place] [facility] [address] [id number] [place] [address]- 5531 Dec, [facility] [place] [facility] [address] [id number] [place] [address]- 2354 Dec, [facility] [place] [facility] [address] [id number] [place] [address]- 5051 Dec, [facility] [place] [facility] [address] [id number] [place] [address]- 4718 Dec, [facility] [place] [facility] [address] [id number] [place] [address]- 5641 Dec, [facility] [place] [facility] [address] [id number] [place] [address]- 3087 Sep, [facility] [place] [facility] [address] [id number] [place] [address]- 9855 Sep, [facility] [place] [facility] [address] [id number] [place] [address]- 1037 Sep, [facility] [place] [facility] [address] [id number] [place] [address]- 5957 Sep, [facility] [place] [facility] [address] [id number] [place] [address]- 7796 Sep, [facility] [place] [facility] [address] [id number], [place] [address]- 6074 14 Sep, 2013 [facility] [place] [facility] [address] [id number] [place] [address]- 6967 Sep, [facility] [place] [facility] [address] [id number] [place] [address]- 6736 Sep, [facility] [place] [facility] [address] [id number] [place] [address]- 2915 Sep, [facility] [place] [facility] [address] [id number] [place] [address]- 3612 Sep, [facility] [place] [facility] [address] [id number] [place] [address]- 2097 24 Aug, 2013 [facility] [place] [facility] [address] [id number] [place] [address]- 5067 Aug, [facility] [place] [facility] [address] [id number] [place] [address]- 1391 Aug, [facility] [place] [facility] [address] [id number] [place] [address]- 4267 Aug, [facility] [place] [facility] [address] [id number] [place] [address]- 3959 Aug, [facility] [place] [facility] [address] [id number] [place] [address]- 8401 Aug, [facility] [place] [facility] [address] [id number] [place] [address]- 2186 Aug, [facility] [place] [facility] [address] [id number], [place] [address]- 5782 Aug, [facility] [place] [facility] [address] [id number] [place] [address]- 4370 Aug, [facility] [place] [facility] [address] [id number] [place] [address]- 7621 Aug, [facility] [place] [facility] [address] [id number] [place] [address]- 8335 Aug, [facility] [place] [facility] [address] [id number] [place] [address]- 9552 Aug, [facility] [place] [facility] [address] [id number] [place] [address]- 7164 Aug, [facility] [place] [facility] [address] [id number] [place] [address]- 2086 July, [facility] [place] [facility] [address] [id number] [place] [address]- 8591 July, [facility] [place] [facility] [address] [id number] [place] [address]- 7194 July, [facility] [place] [facility] [address] [id number] [place] [address]- 6031 July, [facility] [place] [facility] [address] [id number] [place] [address]- 1803 July, [facility] [place] [facility] [address] [id number] [place] [address]- 6422 July, [facility] [place] [facility] [address] [id number] [place] [address]- 0555 July, [facility] [place] [facility] [address] [id number] [place] [address]- 6306 Jun, [facility] [place] [facility] [address] [id number] [place] [address]- 3903 Jun, [facility] [place] [facility] [address] [id number] [place] [address]- 2350 Jun, [facility] [place] [facility] [address] [id number] [place] [address]- 9872 Jun, [facility] [place] [facility] [address] [id number] [place] [address]- 9851 Jun, [facility] [place] [facility] [address] [id number] [place] 6043 Jun, [facility] [place] [facility] [address] [id number] [place] [address]- 3806 08 Jun, 2013 [facility] [place] [facility] [address] [id number] [place] [address]- 4222 17 May, 2013 [facility] [place] [facility] [address] [id number] [place] [address]- 1357 17 May, 2013 [facility] [place] [facility] [address] [id number] [place] [address]- 0625 14 May, 2013 [facility] [place] [facility] [address] [id number] [place] [address]- 7300 14 May, 2013 [facility] [place] [facility] [address] [id number] [place] [address]- 3479 13 May, 2013 [facility] [place] [facility] [address] [id number] [place] [address]- 8134 13 May, 2013 [facility] [place] [facility] [address] [id number] [place] [address]- 1711 10 May, 2013 [facility] [place] [facility] [address] [id number] [place] [address]- 4430 10 May, 2013 [facility] [place] [facility] [address] [id number] [place] [address]- 9715 07 May, 2013 [facility] [place] [facility] [address] [id number] [place] [address]- 0876 26 Apr, 2013 [facility] [place] [facility] [address] [id number] [place] [address]- 4340 26 Apr, 2013 [facility] [place] [facility] [address] [id number] [place] [address]- 3606 18 Apr, 2013 [facility] [place] [facility] [address] [id number] [place] [address]- 1242 15 Apr, 2013 [facility] [place] [facility] [address] [id number] [place] [address]- 7058 15 Apr, 2013 [facility] [place] [facility] [address] [id number] [place] [address]- 4572 11 Apr, 2013 [facility] [place] [facility] [address] [id number] [place] [address]- 8500 Apr, [facility] [place] [facility] [address] [id number] [place] [address]- 6075 Apr, [facility] [place] [facility] [address] [id number] [place] [address]- 8258 Apr, [facility] [place] [facility] [address] [id number] [place] [address]- 3533 Apr, [facility] [place] [facility] [address] [id number] [place] [address]- 1359 Mar, [facility] [place] [facility] [address] [id number] [place] [address]- 7882 Mar, [facility] [place] [facility] [address] [id number] [place] [address]- 8659 Mar, [facility] [place] [facility] [address] [id number] [place] [address]- 1312 Mar, [facility] [place] [facility] [address] [id number] [place] [address]- 0046 Mar, [facility] [place] [facility] [address] [id number] [place] [address]- 5008 Mar, [facility] [place] [facility] [address] [id number] [place] [address]- 7267 Mar, [facility] [place] [facility] [address] [id number] [place] [address]- 1637 Mar, [facility] [place] [facility] [address] [id number] [place] [address]- 4688 Feb, [facility] [place] [facility] [address] [id number] [place] [address]- 3231 Feb, [facility] [place] [facility] [address] [id number] [place] [address]- 8968 Jan, [facility] [place] [facility] [address] [id number] [place] [address]- 4980 18 Jan, 2013 [facility] [place] [facility] [address] [id number] [place] [address]- 1692 15 Jan, 2013 [facility] [place] [facility] [address] [id number] [place] [address]- 4486 15 Jan, 2013 [facility] [place] [facility] [address] [id number] [place] [address]- 3506 Jan, [facility] [place] [facility] [address] [id number] [place] [address]- 2566 Jan, [facility] [place] [facility] [address] [id number] [place] [address]- 8910 Jan, [facility] [place] [facility] [address] [id number], [place] [address]- 6287 Jan, [facility] [place] [facility] [address] [id number] [place] [address]- 6763 Dec, [facility] [place] [facility] [address] [id number], [place] [address]- 1969 10 Dec, 2012 [facility] [place] [facility] [address] [id number], [place] [address]- 5081 10 Dec, 2012 [facility] [place] [facility] [address] [id number] [place] [address]- 9003 20 Nov, 2012 [facility] [place] [facility] [address] [id number], [place] [address]- 1857 13 Nov, 2012 [facility] [place] [facility] [address] [id number], [place] [address]- 7840 12 Sep, 2012 [facility] [place] [facility] [address] [id number] [place] [address]- 3114 09 Sep, 2012 [facility] [place] [facility] [address] [id number], [place] [address]- 3143 06 Sep, 2012 [facility] [place] [facility] [address] [id number], [place] [address]- 2470 06 Sep, 2012 [facility] [place] [facility] [address] [id number] [place] [address]- 3366 Oct, [facility] [address] [id number] [place] [address]- 1330 Oct, [facility] [address] [id number] [place] [address]- 7608 Sep, [facility] [address] [id number] [place] [address]- 7027 Sep, [facility] [address] [id number] [place] [address]- 6305 Sep, [facility] [address] [id number] [place] [address]- 7612 Sep, [facility] [address] [id number] [place] [address]- 8247 Sep, [facility] [address] [id number] [place] [address]- 1560 Sep, [facility] [address] [id number] [place] [address]- 8529 Sep, [facility] [address] [id number] [place] [address]- 2774 Aug, [facility] [address] [id number] [place] [address]- 5308 Aug, [facility] [address] [id number] [place] [address]- 3736 Aug, [facility] [address] [id number] [place] [address]- 7583 Aug, [facility] [place] [facility] [address] [id number] [place] [address]- 6661 Aug, [facility] [place] [facility] [address] [id number] [place] [address]- 2151 Aug, [facility] [place] [facility] [address] [id number] [place] [address]- 5612 July, [facility] [address] [id number] [place] [address]- 5920 July, [facility] [address] [id number] [place] [address]- 2176 July, [facility] [address] [id number] [place] [address]- [address] July, [facility] [address] [id number] [place] [address] July, [facility] [address] [id number] [place] [address] July, [facility] [address] [id number] [place] [address] Jun, [facility] [address] [id number] [place] [address] Jun, [facility] [address] [id number] [place] [address] Jun, [facility] [address] [id number] [place] [address] Jun, [facility] [address] [id number] [place] [address] Jun, [facility] [address] [id number] [place] [address] Jun, [facility] [address] [id number], [place] [address] Jun, [facility] [address] [id number] [place] [address] May, [facility] [place] [facility] [address] [id number] [place] [address] May, [facility] [place] [facility] [address] [id number] [place] [address] Apr, [facility] [address] [id number], [place] [address] 19 Apr, 2012 [facility] [address] [id number] [place] [address] 18 Apr, 2012 [facility] [place] [facility] [address] [id number] [place] [address] 18 Apr, 2012 [facility] [address] [id number] [place] [address] 12 Apr, 2012 [facility] [place] [facility] [address] [id number] [place] [address] 08 Apr, 2012 [facility] [address] [id number] [place] [address] 07 Apr, 2012 [facility] [place] [facility] [address] [id number] [place] [address] 07 Apr, 2012 [facility] [address] [facility] [id number] [place] [address]- [address] 06 Apr, 2012 [facility] [address] [id number] [place] [address] 06 Apr, 2012 [facility] [place] [facility] [address] [id number] [place] [address] 03 Apr, 2012 [facility] [address] [facility] [id number] [place] [address] 30 Mar, 2012 [facility] [place] [facility] [address] [id number] [place] [address] Mar, [facility] [place] [facility] [address] [id number] [place] [address] Mar, [facility] [place] [facility] [address] [id number] [place] [address] Mar, [facility] [place] [facility] [address] [id number] [place] [address] Mar, [facility] [place] [facility] [address] [id number] [place] [address] Mar, [facility] [address] [id number] [place] [address] 15 Mar, 2012 [facility] [place] [facility] [address] [id number] [place] [address] 15 Mar, 2012 [facility] [place] [facility] [address] [id number] [place] [address] Mar, [facility] [place] [facility] [address] [id number] [place] [address] Mar, [facility] [address] [id number] [place] [address] Mar, [facility] [place] [facility] [address] [id number] [place] [address] Mar, [facility] [address] [id number] [place] [address] Mar, [facility] [address] [id number] [place] [address] Feb, [facility] [place] [facility] [address] [id number] [place] [address] Feb, [facility] [place] [facility] [address] [id number] [place] [address] 18 Feb, 2012 [facility] [place] [facility] [address] [id number] [place] [address] 18 Feb, 2012 [facility] [place] [facility] [address] [id number] [place] [address] 11 Feb, 2012 [facility] [place] [facility] [address] [id number] [place] [address]46 11 Feb, 2012 [facility] [place] [facility] [address] [id number] [place] [address] 10 Feb, 2012 [facility] [place] [facility] [address] [id number] [place] [address] 10 Feb, 2012 [facility] [place] [facility] [address] [id number] [place] [address] Feb, [facility] [place] [facility] [address] [id number] [place] [address]- [address] Feb, [facility] [place] [facility] [address] [id number] [place] [address] Feb, [facility] [place] [facility] [address] [id number] [place] [address] Feb, [facility] [place] [facility] [address] [id number] [place] [address]- [address] Feb, [facility] [place] [facility] [address] [id number] [place] [address] Feb, [facility] [place] [facility] [address] [id number] [place] [address] Feb, [facility] [place] [facility] [address] [facility] [id number], [place] [address] Jan, [facility] [place] [facility] [address] [id number] [place] [address] Jan, [facility] [place] [facility] [address] [facility] [id number] [place] [address] Jan, [facility] [place] [facility] [address] [facility] [id number] [place] [address] Jan, [facility] [place] [facility] [address] [id number] [place] [address] Dec, [facility] [place] [facility] [address] [id number], [place] [address] Dec, [facility] [place] [facility] [address] [id number], [place] [address] Dec, [facility] [place] [facility] [address] [facility] [id number], [place] [address] Dec, [facility] [place] [facility] [address] [facility] [id number], [place] [address] Dec, [facility] [place] [facility] [address] [id number] [place] [address] 25 Dec, 2011 [facility] [place] [facility] [address] [id number] [place] [address] 16 Dec, 2011 [facility] [place] [facility] [address] [id number] [place] [address] 2546 16 Dec, 2011 [facility] [place] [facility] [address] [id number] [place] [address] 7664 07 Dec, 2011 [facility] [place] [facility] [address] [id number] [place] [address] 04 Dec, 2011 [facility] [place] [facility] [address] [id number] [place] [address] 4[address] 03 Dec, 2011 [facility] [place] [facility] [address] [id number] [place] [address] 9398 25 Sep, 2011 [facility] [place] [facility] [address] [id number] [place] [address] 7[address] 24 Sep, 2011 [facility] [place] [facility] [address] [id number] [place] [address]49 20 Sep, 2011 [facility] [place] [facility] [address] [id number] [place] [address] 2547 19 Sep, 2011 [facility] [place] [facility] [address] [id number] [place] [address] 2546 17 Sep, 2011 [facility] [place] [facility] [address] [id number] [place] [address] 2546 16 Sep, 2011 [facility] [place] [facility] [address] [id number] [place] [address] 2546 14 Sep, 2011 [facility] [place] [facility] [address] [id number] [place] [address] 2546 13 Sep, 2011 [facility] [place] [facility] [address] [id number] [place] [address] 2546 12 Sep, 2011 [facility] [place] [facility] [address] [id number] [place] [address] 1042 07 Nov, 2011 [facility] [place] [facility] [address] [id number] [place] [address]244 06 Nov, 2011 [facility] [place] [facility] [address] [id number] [place] [address] 1016 06 Nov, 2011 [facility] [place] [facility] [address] [id number] [place] [address] 0676 05 Nov, 2011 [facility] [place] [facility] [address] [id number] [place] [address]134 Oct, [facility] [place] [facility] [address] [id number] [place] [address] 8749 Oct, [facility] [place] [facility] [address] [id number] [place] [address] 4033 Oct, [facility] [place] [facility] [address] [id number] [place] [address] 3760 Oct, [facility] [place] [facility] [address] [id number] [place] [address] 3739 Oct, [facility] [place] [facility] [address] [id number] [place] [address] 2845 Oct, [facility] [place] [facility] [address] [id number] [place] [address] Oct, [facility] [place] [facility] [address] [id number] [place] [address] 6501 16 Oct, 2011 [facility] [place] [facility] [address] [id number], [place] [address] 3836 15 Oct, 2011 [facility] [place] [facility] [address] [id number] [place] [address] 7155 13 Oct, 2011 [facility] [place] [facility] [address] [id number] [place] [address] 3935 Oct, [facility] [place] [facility] [address] [id number] [place] [address] 3945 Sep, [facility] [place] [facility] [address] [id number] [place] [address] 0747 Sep, [facility] [address] [id number] [place] [address] 7628 Sep, [facility] [place] [facility] [address] [id number] [place] [address] 5496 Sep, [facility] [address] [id number] [place] [address] 9604 Sep, [facility] [place] [facility] [address] [id number] [place] [address] 2708 Sep, [facility] [place] [facility] [address] [id number] [place] [address] 5[address] Aug, [facility] [place] [facility] [address] [id number] [place] [address] 3243 July, [facility] [address] [id number] [place] [address] 1052 July, [facility] [address] [id number] [place] [address] 6905 Jun, [facility] [place] [facility] [address] [id number] [place] [address] 8948 Jun, [facility] [address] [id number] [place] [address] 5867 Jun, [facility] [place] [facility] [address] [id number] [place] [address] 8132 Jun, [facility] [place] [facility] [address] [id number] [place] [address]- 1498 Jun, [facility] [place] [facility] [address] [id number] [place] [address] 1890 Jun, [facility] [place] [facility] [address] [id number] [place] [address]- 7380 Jun, [facility] [place] [facility] [address] [id number] [place] [address]- 8464 Jun, [facility] [place] [facility] [address] [id number] [place] [address]- 8743 03 Jun, 2011 [facility] [place] [facility] [address] [id number] [place] [address]- 7476 Jun, [facility] [place] [facility] [address] [id number] [place] [address]- 8313 Jun, [facility] [place] [facility] [address] [id number] [place] [address]- 7744 19 May, 2011 [facility] [place] [facility] [address] [id number] [place] [address] 4020 16 May, 2011 [facility] [place] [facility] [address] [id number] [place] [address]- 0338 14 May, 2011 [facility] [place] [facility] [address] [facility] [id number] [place] [address]- 2932 May, [facility] [place] [facility] [address] [id number] [place] [address]- 0308 Apr, [facility] [place] [facility] [address] [id number] [place] [address]- 4888 Apr, [facility] [place] [facility] [address] [id number] [place] [address]- 5476 Apr, [facility] [place] [facility] [address] [id number] [place] [address]- 9409 Apr, [facility] [place] [facility] [address] [id number] [place] [address]- 2733 Apr, [facility] [place] [facility] [address] [id number] [place] [address]- 0470 Apr, [facility] [place] [facility] [address] [id number] [place] [address]- 4749 Apr, [facility] [place] [facility] [address] [id number] [place] [address]- 4478 Apr, [facility] [place] [facility] [address] [id number] [place] [address]- 8498 Mar, [facility] [address] [id number] [place] [address]- 9465 Mar, [facility] [address] [id number] [place] [address]- 7515 Mar, [facility] [address] [id number] [place] [address]- 1487 Mar, [facility] [address] [id number] [place] [address]- 3411 17 Mar, 2011 [facility] [address] [id number] [place] [address]- 4171 Mar, [facility] [address] [id number] [place] [address]- 6159 Mar, [facility] [address] [id number] [place] [address]- 2221 Mar, [facility] [address] [id number] [place] [address]- 8345 Mar, [facility] [address] [id number] [place] [address]- 9360 Mar, [facility] [address] [id number] [place] [address]- 5576 Mar, [facility] [address] [id number] [place] [address]- 4767 Mar, [facility] [address] [id number] [place] [address]- 5175 Mar, [facility] [place] [facility] [address] [id number] [place] [address]- 9529 Mar, [facility] [place] [facility] [address] [id number] [place] [address] [address] Mar, [facility] [address] [id number] [place] [address]- 4810 Mar, [facility] [place] [facility] [address] [id number] [place] [address]- 0615 Feb, [facility] [place] [facility] [address] [id number] [place] [address] Feb, [facility] [place] [facility] [address] [id number] [place] [address]- 5484 Feb, [facility] [place] [facility] [address] [id number] [place] [address]- 3004 Jan, [facility] [place] [facility] [address] [id number] [place] [address]- 6472 Jan, [facility] [place] [facility] [address] [id number] [place] [address]- 1334 Jan, [facility] [place] [facility] [address] [id number] [place] [address]- 7641 Dec, [facility] [place] [facility] [address] [id number] [place] [address]- 9548 Dec, [facility] [place] [facility] [address] [id number] [place] [address]- 6477 Nov, [facility] [place] [facility] [address] [id number] [place] [address]- 9757 Oct, [facility] [place] [facility] [address] [id number] [place] [address]- 2710 Oct, [facility] [place] [facility] [address] [id number], [place] [address]- 3641 Oct, [facility] [place] [facility] [address] [id number] [place] [address]- 3959 Sep, [facility] [place] [facility] [address] [id number] [place] [address]- 1051 Apr, [facility] [place] [facility] [address] [id number] [place] [address]- 7340 Feb, [facility] [place] [facility] [address] [id number] [place] [address]- 4356 Jan, IMMUNIZATIONS No Known Immunizations SOCIAL HISTORY Never Assessed REASON FOR VISIT Vc Hosp follow up--[place] PLAN OF CARE Activity Details Follow Up 3 Months Reason:DM VITAL SIGNS Height 70 in 2017-06-29 Weight 234.8 lbs 2017-06-29 Temperature 98.2 degrees Fahrenheit 2017-06-29 Heart Rate 110 bpm 2017-06-29 Respiratory Rate 24 2017-06-29 Oximetry w/ oxygen:98 % 2017-06-29 BMI 33.69 kg/m2 2017-06-29 Blood pressure systolic 134 mmHg 2017-06-29 Blood pressure diastolic 100 mmHg 2017-06-29 MEDICATIONS Medication Instructions Dosage Frequency Start Date End Date Duration Status Oxygen 2Lt by inhalation route 24 hours Active Advair Diskus 250 mcg-50 mcg Inhalation Twice a day 1 puff 12h Dec, Active Neurontin 300 MG Orally Three times a day-repository 1 capsule Dec, Active Topamax 100 mg Orally Twice a day 1 tablet 12h 30 Active Spiriva HandiHaler 18 MCG Inhalation Once a day 1 capsule 24h Active Pantoprazole Sodium 40 mg Orally twice a day 1 tablet 12h Apr, 30 day(s) Active Metamucil 43 % Orally Once a day 3.4 GM 24h May, Active Ipratropium-Albuterol 0.5-2.5 (3) MG/3ML Inhalation Four times a day 3 ml as needed for Shortness of breath 6h Active Glimepiride 1 MG Orally Once a day on the days you are taking the prednsone 1 tablet with breakfast or the first main meal of the day Mar, 30 day(s) Active Metoprolol Tartrate 25 MG Orally 2 times a day 1/2 tablet 12h Active Multivitamin Adult - Orally Once a day 24h Active Cymbalta 60 mg Orally Once a day 2 capsule 24h Feb, Active Sucralfate 1 GM Orally AC and HS 1 tablet at bedtime on an empty stomach before meals Active Abilify 15 mg Orally Once a day 1 tablet 24h Jun, 90 days Active Trulicity 0.75 MG/0.5ML Subcutaneous once weekly 0.5 ml Jun, 90 days Active Ventolin HFA 108 (90 Base) MCG/ACT Inhalation every 4 hours prn shortness of breath 2 puffs as needed Active RESULTS Name Result Date Reference Range A1C (IN HOUSE) 2017-06-29 A1C IN HOUSE 7.6 4.3 - 5.6 % Previous A1c 6.5 Lot [id number] Exp date 04/28 PROCEDURES Procedure Date Ordered Result Body Site GLYCATED HEMOGLOBIN TEST June 29, 2017 INSTRUCTIONS MEDICATIONS ADMINISTERED No Known Medications [...] 2/2 Benzos OD, pneumonia MRSA, MAYRA, Hypokalemia-- [facility] 12/20/2015 Hospitalization History COPD exacerbation, Asthma-[facility] 09/21/16 Hospitalization History COPD-[facility] 12/30/2016 Hospitalization History [facility]-last around 2006 or so. Hospitalization History for COPD x2 Mar 2017 Hospitalization History Upper GI bleed at apr 2017 Hospitalization History [facility]- COPD Exacerbation, diarrhea 05/23/2017 Hospitalization History COPD exacerbation-[facility] 06/13/17 Hospitalization History [facility] 09/09/2017
[2017-11-19] MEDS ORDERED: ONDANSETRON 4 MG/2 ML (SDV) Z0FRAN IV PRN (14:00)
[2017-11-19] MEDS ORDERED: LORazepam INJ 2 MG/ML (ATIVAN) VIAL IV PRN (14:00)
[2017-11-19 14:15] LABS: ABG BASE EXCESS 0.1 MMOL/L (-2.5-2.5); ABG OXYGEN SATURATION 100 % (94-100); ABG PCO2 33 MMHG (35-45); ABG PH 7.47 (7.37-7.43); ABG PO2 118 MMHG (79-93); ABG TCO2 24.6 MMOL/L (21.0-31.0); ALLENS TEST POSITIVE
[2017-11-19 14:16] LABS: INSPIRED O2 35% BIPAP; PATIENT TEMP 97.1; VENTILATOR NO
[2017-11-19] MEDS ORDERED: RT-ALBUTEROL/IPRATROPIUM 3 ML (DUONEB) VIAL ONE (14:27)
[2017-11-19] MEDS ORDERED: RT-ALBUTEROL/IPRATROPIUM 3 ML (DUONEB) VIAL INH PRN (14:45)
--- NOTE | 2017-11-19 14:55 | Pulmonary Consultation ---
History of Present Illness History of Present Illness Date of Consultation 11/19/17 14:50 Time Seen by Provider: 14:50 Date of Admission History of Present Illness 52yo with hx of severe COPD, multiple hospitalizations, and medical noncompliance presents to the ED with increased SOB, nausea, vomiting, and diarrhea. She was placed on prednisone and Zofran as an out patient. No known fevers. Pt required BiPAP in the ED and secondary to anxiety was given 2mg of Ativan. Pt is currently on BiPAp and very lethargic with increased WOB. I am consulted for pulmonary CC management. I am unable to obtain ROS secondary to respiratory distress and BiPAP. Allergies and Home Medications Allergies Coded Allergies: buspirone (Verified Allergy, Mild, 05/02/17) Made"legs Shaky" amitriptyline (Verified Allergy, Unknown, 05/02/17) " MAKES ME DO WEIRD THINGS LIKE WALK IN MY SLEEP AND HAVE HALLUCINATIONS." Home Medications Albuterol Sulfate 1 Puff Puff, 2 PUFF IH Q4H PRN for SHORTNESS OF BREATH, ( Reported) UNKNOWN LAST FILL DATE 1 PUFF = 90 MCG Aspirin 81 Mg Tablet.dr, 81 MG PO DAILY Prescribed by: PAZ IVERSON on 09/09/17 170 Dulaglutide 0.75 Mg/0.5 Ml Pen.injctr, 0.75 MG SQ Th, (Reported) UNKNOWN LAST FILL DATE Fluticasone/Salmeterol 1 Each Blst.w.dev, 1 PUFF IH BID Prescribed by: JAISON NORWOOD on 08/28/17 1003 Furosemide 20 Mg Tablet, 20 MG PO DAILY Prescribed by: PAZ IVERSON on 09/09/17 1706 Glimepiride 1 Mg Tablet, 1 MG PO DAILY PRN for WHEN TAKING PREDNISONE, (Reported ) Ipratropium/Albuterol Sulfate 3 Ml Ampul.neb, 3 ML IH QID PRN for SHORTNESS OF BREATH, (Reported) HAS NOT PICKED UP YET Metoprolol Tartrate 25 Mg Tablet, 12.5 MG PO BID, (Reported) TAKES 1/2 (25MG) TABLET / LAST FILLED 04/16/17 #30 Sacubitril/Valsartan 1 Each Tablet, 1 TAB PO BID Prescribed by: PAZ IVERSON on 09/09/17 1706 Tiotropium Section 1 Inh Aerp, 1 CAP IH DAILY Prescribed by: JAISON NORWOOD on 08/28/17 1003 Past Vvhoygl-Qwlokr-Pzamai Hx Patient Social History Alcohol Use: Denies Use Recreational Drug Use: No (4 YRS AGO) Drug of Choice: +IV METH past hx Smoking Status: Current Everyday Smoker Type Used: Cigarettes 2nd Hand Smoke Exposure: Yes Recent Foreign Travel: No Contact w/Someone Who Travel: No Recent Infectious Disease Expo: No Recent Hopitalizations: Yes Immunizations Up To Date Tetanus Booster (TDap): Unknown Date of Pneumonia Vaccine: Dec 08, 2011 Date of Influenza Vaccine: Dec 31, 2016 Seasonal Allergies Seasonal Allergies: No Past Medical History Surgeries: No Respiratory: Yes (O2 AT 2-3L/NC) Sleep Apnea, COPD Currently Using CPAP: No Currently Using BIPAP: Yes (PT. STATED) Cardiac: Yes (HAD HEART CATH. 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 Disorders: Denies [employer] History: Menopausal Sexually Transmitted Disease: No HIV/AIDS: No Genitourinary: No Gastrointestinal: Yes Ulcer Musculoskeletal: Yes (chronic shoulder and neck pain) Endocrine: Yes (DM- only while on steriods per pt) Diabetes, Non-Insulin dep HEENT: No Cancer: No Psychosocial: Yes Sleep Difficulties, Anxiety, Suicide Attempts, Bipolar, Depression Integumentary: No Blood Disorders: No Adverse Reaction/Blood Tranf: No Family Medical History Cancer 03 MOTHER, Onset:66 (LUNG ) 09 BROTHER (LUNG ) Congestive heart failure 03 FATHER Heart Disease, Cancer Review of Systems Time Seen by Provider: 14:53 Sepsis Event Evaluation Height, Weight, BMI Height: 5'9.00" Weight: 194lbs. 0.0oz. 87.934863dn; 30.4 BMI Method:Stated Exam Exam Vital Signs Date Time Temp Pulse Resp B/P (MAP) Pulse Ox O2 Delivery O2 Flow Rate FiO2 11/19/17 14:36 86 22 98 21.00 11/19/17 14:15 84 20 132/85 (101) 97 11/19/17 14:00 84 20 142/132 (135) 99 11/19/17 13:53 86 11/19/17 12:50 85 18 126/85 100 NIV Bilevel 11/19/17 11:40 84 23 96 60.00 11/19/17 11:15 98.9 82 24 160/122 (291) 99 Nasal Cannula Height & Weight Height: 5'9.00" Weight: 194lbs. 0.0oz. 87.222202ew; 30.4 BMI Method:Stated General Appearance: Obese, Severe Distress HEENT: TMs Normal, Pharynx Normal Neck: Normal Inspection, Non Tender, Supple Respiratory: Accessory Muscle Use, Decreased Breath Sounds, Respiratory Distress Cardiovascular: No Edema, No Gallop Capillary Refill: Less Than 3 Seconds Gastrointestinal: non tender, soft Extremity: Normal Capillary Refill, Normal Inspection Neurologic/Psychiatric: Depressed Affect, Disoriented Skin: Normal Color, Warm/Dry Lymphatic: No Adenopathy Results Lab Laboratory Tests 11/19/17 11:02 Assessment/Plan Assessment/Plan Acute on Chronic respiratory failure -Continue BiPAP SVNs Q4 -Solumedrol CHF with EF 15% Morbid obesity hx of methamphetamine use -Check UDS hx of medical noncompliance with multiple hospitalizations. WILLIAMS THOMAS DO Nov 19, 2017 14:55
[2017-11-19] MEDS ORDERED: FURO20TA4 PO (15:02)
[2017-11-19] MEDS ORDERED: TIOT18CA2 IH (15:02)
[2017-11-19] MEDS ORDERED: FLUT1DIS26 IH (15:03)
[2017-11-19 15:20] LABS: AMPHETAMINE SCREEN, URINE NEGATIVE (NEGATIVE); BARBITURATE SCREEN URINE NEGATIVE (NEGATIVE); BENZODIAZEPINES SCREEN URINE POSITIVE (NEGATIVE); CANNABINOID SCREEN, URINE NEGATIVE (NEGATIVE); COCAINE SCREEN URINE NEGATIVE (NEGATIVE); METHADONE STAT NEGATIVE (NEGATIVE); METHAMPHETAMINE SCREEN URINE S NEGATIVE (NEGATIVE); OPIATE SCREEN URINE NEGATIVE (NEGATIVE); OXYCODONE STAT NEGATIVE (NEGATIVE); PROPOXYPHENE STAT NEGATIVE (NEGATIVE); TRICYCLIC ANTIDEPRESSANTS SCRE NEGATIVE (NEGATIVE)
[2017-11-19 15:24] LABS: BACTERIA,URINE LARGE /HPF; BILIRUBIN,URINE NEGATIVE (NEGATIVE); CLARITY,URINE SLIGHTLY CLOUDY; COLOR,URINE YELLOW; GLUCOSE, URINE (UA) NEGATIVE (NEGATIVE); KETONES,URINE NEGATIVE (NEGATIVE); LEUKOCYTE ESTERASE ,URINE 3+ (NEGATIVE); NITRITE,URINE POSITIVE (NEGATIVE); PH,URINE 7 (5-9); PROTEIN,URINE 1+ (NEGATIVE); UROBILINOGEN,URINE NORMAL (NORMAL); WBC,URINE 25-50 /HPF
[2017-11-19] MEDS: NS IV 1000 ML 1,000 ML IV SCH ×2 (15:30→19:52)
[2017-11-19] MEDS ORDERED: DEXMEDETOMIDINE INJECTION 400 MCG in NS (IVPB) 96 ML IV SCH (15:45)
[2017-11-19] MEDS: RT-ALBUTEROL/IPRATROPIUM 3 ML (DUONEB) VIAL INH SCH ×4 (15:48→21:45)
[2017-11-19] MEDS ORDERED: ASPI-983 PO (16:03)
[2017-11-19] MEDS ORDERED: SACU1TAB PO (16:04)
[2017-11-19] MEDS: ENOXAPARIN 40 MG/0.4 ML (LOVENOX) SYR SC SCH (16:04)
[2017-11-19 16:53] LABS: ABG BASE EXCESS -2.4 MMOL/L (-2.5-2.5); ABG OXYGEN SATURATION 97 % (94-100); ABG PCO2 30 MMHG (35-45); ABG PH 7.46 (7.37-7.43); ABG PO2 80 MMHG (79-93)
[2017-11-19 16:54] LABS: ALLENS TEST POSITIVE
[2017-11-19 16:55] LABS: INSPIRED O2 21% BIPAP; PATIENT TEMP 97.4; VENTILATOR NO
[2017-11-19] MEDS: methylPREDNISolone 40 MG/ML (Solu-MEDROL) VIAL IV SCH ×2 (17:21→23:31)
[2017-11-20] VITALS (32 sets, daily range): BP systolic 77–198; BP diastolic 39–184
[2017-11-20] MEDS: RT-ALBUTEROL/IPRATROPIUM 3 ML (DUONEB) VIAL INH SCH ×12 (00:44→22:16)
[2017-11-20] MEDS ORDERED: IBUPROFEN 800 MG (MOTRIN) TAB PO ONE (03:14)
[2017-11-20] MEDS: IBUPROFEN 800 MG (MOTRIN) TAB PO PRN ×2 (03:22→09:49)
[2017-11-20 04:11] LABS: BASOPHILS % (AUTO) 0 % (0-10); EOSINOPHILS % (AUTO) 0 % (0-10); HEMATOCRIT 36 % (35-52); HEMOGLOBIN 12.1 G/DL (11.5-16.0); LYMPHOCYTES # (AUTO) 0.5 X 10^3 (1.0-4.0); LYMPHOCYTES % (AUTO) 6 % (12-44); MEAN CORPUSCULAR HEMOGLOBIN 27 PG (25-34); MEAN CORPUSCULAR HGB CONC 34 G/DL (32-36); MEAN CORPUSCULAR VOLUME 80 FL (80-99); MEAN PLATELET VOLUME 11.7 FL (7.4-10.4); MONOCYTES # (AUTO) 0.1 X 10^3 (0.0-1.0); MONOCYTES % (AUTO) 1 % (0-12); NEUTROPHILS # (AUTO) 8.2 X 10^3 (1.8-7.8); NEUTROPHILS % (AUTO) 93 % (42-75); PLATELET COUNT 259 10^3/uL (130-400); RED BLOOD COUNT 4.46 10^6/uL (4.35-5.85); RED CELL DISTRIBUTION WIDTH 18.4 % (10.0-14.5); WHITE BLOOD COUNT 8.8 10^3/uL (4.3-11.0)
[2017-11-20 04:39] LABS: BUN/CREATININE RATIO 16; CALCIUM 9.6 MG/DL (8.5-10.1); CARBON DIOXIDE 18 MMOL/L (21-32); CHLORIDE 106 MMOL/L (98-107); CREATININE SERUM 0.83 MG/DL (0.60-1.30); GFR ESTIMATED > 60; GLUCOSE 205 MG/DL (70-105); MAGNESIUM 1.5 MG/DL (1.8-2.4); PHOSPHORUS 2.9 MG/DL (2.3-4.7); POTASSIUM 3.1 MMOL/L (3.6-5.0); SODIUM 137 MMOL/L (135-145)
[2017-11-20 04:50] LABS: BAND NEUTROPHILS 0 %; BASOPHILS % (MANUAL) 0 %; EOSINOPHILS % (MANUAL) 0 %; LYMPHOCYTES % (MANUAL) 9 %; MONOCYTES % (MANUAL) 3 %; NEUTROPHILS % (MANUAL) 88 %
[2017-11-20 04:51] LABS: ANISOCYTOSIS SLIGHT; CRENATED RBC SLIGHT; ELLIPT/OVALOCYTES SLIGHT; HYPOCHROMASIA SLIGHT; ROULEAUX SLIGHT
[2017-11-20] MEDS: MAGNESIUM 1 GM/100 ML IVPB 100 ML IV SCH ×2 (05:14→06:21)
[2017-11-20] MEDS: methylPREDNISolone 40 MG/ML (Solu-MEDROL) VIAL IV SCH ×4 (05:14→23:36)
--- NOTE | 2017-11-20 05:30 | Pulmonary Progress Note ---
Subjective Time Seen by Provider: 05:34 Subjective/Events-last exam No complications noted. Pt is doing better. Sepsis Event Evaluation Height, Weight, BMI Height: 5'9.00" Weight: 196lbs. 14.4oz. 89.836956ma; 29.1 BMI Method:Stated Exam Exam Vital Signs Date Time Temp Pulse Resp B/P (MAP) Pulse Ox O2 Delivery O2 Flow Rate FiO2 11/20/17 04:30 97 Vapotherm 30.00 30 11/20/17 04:00 98 Vapotherm 30.00 30 11/20/17 03:22 97.6 11/20/17 03:00 112 19 106/64 (78) 98 Vapotherm 30.00 30.00 11/20/17 02:09 97 Vapotherm 30.00 30 11/20/17 02:00 101 17 89/57 (68) 97 Vapotherm 30.00 30.00 11/20/17 01:00 109 11/20/17 01:00 93 17 88/65 (73) 97 Vapotherm 30.00 30.00 11/20/17 00:49 Vapotherm 30.00 30.00 11/20/17 00:44 100 Vapotherm 35.00 30 11/20/17 00:00 92 18 102/73 (83) 98 Vapotherm 30.00 35.00 11/20/17 00:00 98 Vapotherm 40.00 30 11/19/17 23:31 97.9 11/19/17 23:00 112 19 96/65 (75) 98 Vapotherm 30.00 35.00 11/19/17 22:00 101 17 87/52 (64) 97 Vapotherm 30.00 35.00 11/19/17 21:48 98 Vapotherm 30.00 35.00 11/19/17 21:45 98 Vapotherm 40.00 30 11/19/17 21:00 93 17 97/69 (78) 97 Vapotherm 30.00 40.00 11/19/17 20:00 92 8 102/73 (83) 98 Vapotherm 30.00 40.00 11/19/17 20:00 98 Vapotherm 40.00 30 11/19/17 19:50 98 Vapotherm 40.00 30 11/19/17 19:48 98.6 98 Vapotherm 30.00 40.00 11/19/17 19:00 99 11/19/17 19:00 96 19 103/75 (84) 97 NIV Bilevel 21.00 11/19/17 18:37 102 25 95 21.00 11/19/17 18:00 98 24 105/91 (96) 95 NIV Bilevel 21.00 11/19/17 17:15 107 41 106/73 (84) 96 NIV Bilevel 21.00 11/19/17 17:00 112 10 138/99 (112) 96 NIV Bilevel 21.00 11/19/17 16:37 97.3 11/19/17 16:30 110 24 149/98 (115) 98 NIV Bilevel 21.00 11/19/17 16:15 106 25 88/25 (46) 98 NIV Bilevel 21.00 11/19/17 16:00 101 21 87/64 (72) 98 NIV Bilevel 21.00 11/19/17 15:48 87 21 98 21.00 11/19/17 15:30 NIV Bilevel 21 11/19/17 15:00 92 22 117/72 (87) 96 NIV Bilevel 21.00 11/19/17 14:45 89 23 118/75 (89) 95 NIV Bilevel 21.00 11/19/17 14:36 86 22 98 21.00 11/19/17 14:30 82 19 123/71 (88) 98 NIV Bilevel 21.00 11/19/17 14:15 84 20 132/85 (101) 97 NIV Bilevel 21.00 11/19/17 14:00 84 20 142/132 (135) 99 NIV Bilevel 21.00 11/19/17 13:53 86 11/19/17 12:50 85 18 126/85 100 NIV Bilevel 11/19/17 11:40 84 23 96 60.00 11/19/17 11:15 98.9 82 24 160/122 (135) 99 Nasal Cannula I & O 11/20/17 07:00 Intake Total 2150 ml Output Total 750 ml Balance 1400 ml Height & Weight Height: 5'9.00" Weight: 196lbs. 14.4oz. 89.058995rh; 29.1 BMI Method:Stated General Appearance: No Apparent Distress, WD/WN, Obese, Severe Distress HEENT: TMs Normal, Pharynx Normal Neck: Normal Inspection, Non Tender, Supple Respiratory: No Accessory Muscle Use, No Respiratory Distress, Decreased Breath Sounds Cardiovascular: No Edema, No Gallop Capillary Refill: Less Than 3 Seconds Gastrointestinal: non tender, soft Extremity: Normal Capillary Refill, Normal Inspection Neurologic/Psychiatric: Depressed Affect, Disoriented Skin: Normal Color, Warm/Dry Lymphatic: No Adenopathy Results Lab Laboratory Tests 11/19/17 11:02 11/20/17 03:17 Assessment/Plan Assessment/Plan Acute on Chronic respiratory failure -Continue BiPAP PRN SVNs Q4 -Solumedrol -- change to prednisone CHF with EF 15% -Hep lock IVF -Start Lasix Hypokalemia -Replace Hypomag -Replace Morbid obesity hx of methamphetamine use hx of medical noncompliance with multiple hospitalizations. Will transfer to 4th floor. WILLIAMS THOMAS DO Nov 20, 2017 05:30
[2017-11-20] MEDS ORDERED: KCL 20 MEQ TAB (K-DUR) PO SCH (06:00)
[2017-11-20] MEDS ORDERED: POTASSIUM CL 10MEQ/50ML IVPB 50 ML IV SCH (06:00)
[2017-11-20] MEDS ORDERED: MAGNESIUM 1 GM/100 ML IVPB 100 ML IV SCH (06:00)
[2017-11-20] MEDS ORDERED: HYDROmorphone (DILAUDID) 2 MG TAB PO PRN (06:30)
--- NOTE | 2017-11-20 07:39 | Diagnostic Imaging Report ---
INDICATION: Dyspnea. COMPARISON: 11/19/2017. FINDINGS: Stable left mid and lower lung zone subsegmental atelectasis. Remainder of the visualized lungs are clear. No pleural effusion or pneumothorax. Stable cardiomegaly. IMPRESSION: No interval change or adverse development. Dictated by: Dictated on workstation # [id number]
[2017-11-20] MEDS: FUROSEMIDE 40 MG/4 ML INJ (LASIX) IVP SCH ×2 (07:58→09:26)
[2017-11-20] MEDS: PANTOPRAZOLE 40 MG (PROTONIX) VIAL IV SCH (07:58)
[2017-11-20] MEDS ORDERED: KCL 20 MEQ TAB (K-DUR) PO ONE ×2 (08:00→10:00)
[2017-11-20] MEDS ORDERED: cefTRIAXone FOR IV USE 1,000 MG in NS (IVPB) 50 ML IV SCH (09:15)
[2017-11-20] MEDS ORDERED: HALOPERIDOL 5 MG/ML (HALDOL) AMP IV PRN (11:15)
[2017-11-20] MEDS: LIDOCAINE (LIDODERM) 5% PATCH TOP SCH (11:19)
[2017-11-20] MEDS ORDERED: risperiDONE 1 MG (RisperDAL) TAB PO NR (11:21)
[2017-11-20 11:41] LABS: ABG BASE EXCESS -5.9 MMOL/L (-2.5-2.5); ABG OXYGEN SATURATION 99 % (94-100); ABG PH 7.54 (7.37-7.43); ABG PO2 107 MMHG (79-93); ABG TCO2 16.9 MMOL/L (21.0-31.0)
[2017-11-20 11:43] LABS: ABG PCO2 19 MMHG (35-45); ALLENS TEST POSITIVE; VENTILATOR NO
[2017-11-20 11:44] LABS: INSPIRED O2 30% FI02 20 L; PATIENT TEMP 97.6
[2017-11-20] MEDS ORDERED: SODIUM BICARB 8.4% 50 MEQ/50 ML (ABBOTT) SYR IV NR (12:00)
[2017-11-20] MEDS: morphine INJ 4 MG/ML 1 ML (VIAL/SYRINGE) IVP PRN ×3 (12:04→23:42)
[2017-11-20 12:16] LABS: BASOPHILS % (AUTO) 0 % (0-10); EOSINOPHILS % (AUTO) 0 % (0-10); HEMATOCRIT 39 % (35-52); HEMOGLOBIN 13.2 G/DL (11.5-16.0); LYMPHOCYTES # (AUTO) 0.9 X 10^3 (1.0-4.0); LYMPHOCYTES % (AUTO) 6 % (12-44); MEAN CORPUSCULAR HEMOGLOBIN 27 PG (25-34); MEAN CORPUSCULAR HGB CONC 34 G/DL (32-36); MEAN CORPUSCULAR VOLUME 80 FL (80-99); MEAN PLATELET VOLUME 10.9 FL (7.4-10.4); MONOCYTES # (AUTO) 0.5 X 10^3 (0.0-1.0); MONOCYTES % (AUTO) 3 % (0-12); NEUTROPHILS # (AUTO) 14.4 X 10^3 (1.8-7.8); NEUTROPHILS % (AUTO) 91 % (42-75); PLATELET COUNT 316 10^3/uL (130-400); RED BLOOD COUNT 4.83 10^6/uL (4.35-5.85); RED CELL DISTRIBUTION WIDTH 18.7 % (10.0-14.5); WHITE BLOOD COUNT 15.8 10^3/uL (4.3-11.0)
[2017-11-20 12:35] LABS: ALANINE AMINOTRANSFERASE 11 U/L (0-55); ALBUMIN 4.1 GM/DL (3.2-4.5); ALKALINE PHOSPHATASE 59 U/L (40-136); BILIRUBIN,TOTAL 0.5 MG/DL (0.1-1.0); BUN/CREATININE RATIO 12; CALCIUM 10.1 MG/DL (8.5-10.1); CARBON DIOXIDE 17 MMOL/L (21-32); CHLORIDE 106 MMOL/L (98-107); CREATININE SERUM 0.97 MG/DL (0.60-1.30); GFR ESTIMATED 60; GLUCOSE 185 MG/DL (70-105); MAGNESIUM 2.2 MG/DL (1.8-2.4); PHOSPHORUS 1.8 MG/DL (2.3-4.7); POTASSIUM 3.2 MMOL/L (3.6-5.0); SODIUM 139 MMOL/L (135-145); TOTAL PROTEIN 6.7 GM/DL (6.4-8.2)
[2017-11-20 12:40] LABS: ANISOCYTOSIS MODERATE; BAND NEUTROPHILS 0 %; BASOPHILS % (MANUAL) 0 %; EOSINOPHILS % (MANUAL) 0 %; LYMPHOCYTES % (MANUAL) 7 %; MONOCYTES % (MANUAL) 1 %; NEUTROPHILS % (MANUAL) 92 %
[2017-11-20] MEDS ORDERED: LORazepam INJ 2 MG/ML (ATIVAN) VIAL IVP PRN (13:15)
[2017-11-20] MEDS ORDERED: PIPERACILLIN SODIUM/TAZOBACTAM 4.5 GM in NS (IVPB) 100 ML IV SCH (13:15)
[2017-11-20] MEDS ORDERED: NS IV ONE (13:15)
[2017-11-20] MEDS ORDERED: PIPERACILLIN/TAZO 4.5 GM/NS 100 ML IV NR ×2 (13:30)
[2017-11-20] MEDS: LACTATED RINGERS 1,000 ML IV SCH ×3 (13:45→23:37)
[2017-11-20] MEDS: ENOXAPARIN 40 MG/0.4 ML (LOVENOX) SYR SC SCH (14:08)
[2017-11-20] MEDS ORDERED: DIATRIZOATE MEGLUM/SODIUM 37% 120 ML (GASTROGRAFIN) PO ONE (14:30)
[2017-11-20] MEDS ORDERED: IOHEXOL 350 MG/ML 100 ML (OMNIPAQUE 350) VIAL IV ONE (14:30)
[2017-11-20] MEDS ORDERED: NS 250 ML (IVPB) BAG IV ONE (14:30)
[2017-11-20] MEDS ORDERED: RECEIVED CONTRAST (Hold Metformin) IV SCH (14:45)
--- NOTE | 2017-11-20 14:48 | Consultation-Cardiology ---
HPI-Cardiology Cardiology Consultation: Date of Consultation 11/20/17 Date of Admission Attending Physician Norah Martinez MD Admitting Physician [place] Consulting Physician Jennifer MUNIZ MD HPI: Time Seen by Provider: 12:30 This is a 52-year-old woman with known history of COPD who presented to the ER with shortness of breath. She has previous history of moderate CAD diagnosed on coronary angiography done in the last 6 months. Previous systolic dysfunction was noted and she was started on treatment for cardiomyopathy. She is a patient of Dr. Whitehead. Shortness of breath was associated with nausea, vomiting and diarrhea. She was started on prednisone and Zofran. There is also an element of anxiety. Some chest discomfort. Patient denies drug abuse. Review of Systems-Cardiology Review of Systems Constitutional: As described under HPI; No As described under HPI, No no symptoms reported, No chills, No fever, No lightheadedness Eyes: No As described under HPI, No no symptoms reported, No blindness, No blurred vision, No contact lenses, No drainage, No decreased acuity, No foreign body sensation, No pain, No vision change Ears/Nose/Throat: No As described under HPI, No no symptoms reported, No chronic hearing loss, No ear discharge, No ear pain, No nasal drainage, No ulcerations Respiratory: No no symptoms reported; As described under HPI; No As described under HPI, No cough, No orthopnea; shortness of breath; No SOB with excertion Cardiovascular: No no symptoms reported; As described under HPI; No As described under HPI, No chest pain, No edema, No irregular heart rate, No lightheadedness, No palpitations Gastrointestinal: No no symptoms reported, No As described under HPI, No abdomen distended, No abdominal pain, No blood streaked bowels, No constipation , No diarrhea, No nausea, No vomiting; nausea/vomiting/diarrhea; No stool coloration changes Genitourinary: No As described under HPI, No burning, No dysuria, No discharge , No frequency, No flank pain, No hematuria, No urgency : No Skin: No rash, No skin related problems, No ulcerations Psychiatric/Neurological: No anxiety, No depression, No seizure, No focal weakness, No syncope Hematologic: No bleeding abnormalities MEI-Fdmrho-Khonhm Hx Patient Social History Alcohol Use: Denies Use Recreational Drug Use: No (4 YRS AGO) Drug of Choice: +IV METH past hx Smoking Status: Current Everyday Smoker Type Used: Cigarettes 2nd Hand Smoke Exposure: Yes Recent Foreign Travel: No Recent Infectious Disease Expo: No Hospitalization with Isolation: Denies Physical Abuse Screen: No Sexual Abuse: No Immunizations Up To Date Tetanus Booster (TDap): Unknown Date of Pneumonia Vaccine: Dec 08, 2011 Date of Influenza Vaccine: Dec 31, 2016 Past Medical History PMH As described under Assessment. Family Medical History Family History: Cancer 03 MOTHER, Onset:66 (LUNG ) 09 BROTHER (LUNG ) Congestive heart failure 03 FATHER Allergies and Home Medications Allergies Coded Allergies: buspirone (Verified Allergy, Mild, 05/02/17) Made"legs Shaky" amitriptyline (Verified Allergy, Unknown, 05/02/17) " MAKES ME DO WEIRD THINGS LIKE WALK IN MY SLEEP AND HAVE HALLUCINATIONS." Home Medications Albuterol Sulfate 1 Puff Puff, 2 PUFF IH Q4H PRN for SHORTNESS OF BREATH, ( Reported) Aspirin 81 Mg Tablet.dr, 81 MG PO DAILY, (Reported) Fluticasone/Salmeterol 1 Each Blst.w.dev, 1 PUFF IH BID, (Reported) Furosemide 20 Mg Tablet, 20 MG PO DAILY, (Reported) Glimepiride 1 Mg Tablet, 1 MG PO DAILY PRN for WHEN TAKING PREDNISONE, (Reported ) Ipratropium/Albuterol Sulfate 3 Ml Ampul.neb, 3 ML IH QID PRN for SHORTNESS OF BREATH, (Reported) Metoprolol Tartrate 25 Mg Tablet, 12.5 MG PO BID, (Reported) TAKES 1/2 (25MG) TABLET Sacubitril/Valsartan 1 Each Tablet, 1 TAB PO BID, (Reported) Tiotropium [employer] 1 Inh Aerp, 1 CAP IH DAILY, (Reported) Patient Home Medication List Home Medication List Reviewed: Yes Physical Exam-Cardiology Physical Exam Vital Signs/I&O 11/20/17 11/20/17 11/20/17 11/20/17 09:30 10:00 10:15 10:51 Pulse 112 110 110 Resp 17 12 22 B/P (MAP) 103/63 (76) 115/71 (86) 103/62 (76) Pulse Ox 97 100 98 99 O2 Delivery Vapotherm Vapotherm Vapotherm Vapotherm O2 Flow Rate 30.00 30.00 30.00 20.00 20.00 20.00 20.00 FiO2 30 11/20/17 11/20/17 11/20/17 11/20/17 11:00 11:15 11:30 11:35 Pulse 112 112 115 Resp 19 22 19 B/P (MAP) 198/184 (189) 105/72 (83) Pulse Ox 95 100 100 100 O2 Delivery Vapotherm Vapotherm Vapotherm Vapotherm O2 Flow Rate 30.00 30.00 30.00 20.00 20.00 20.00 20.00 FiO2 30 11/20/17 11/20/17 11/20/17 11/20/17 11:35 11:45 12:00 12:30 Temp 97.6 Pulse 115 120 115 Resp 15 45 30 B/P (MAP) 90/61 (71) 89/56 (67) Pulse Ox 99 100 O2 Delivery Vapotherm Vapotherm Vapotherm O2 Flow Rate 30.00 30.00 30.00 20.00 20.00 20.00 11/20/17 11/20/17 11/20/17 11/20/17 12:56 13:00 13:00 13:43 Temp 99.0 Pulse 112 111 Resp 19 B/P (MAP) 80/44 (56) Pulse Ox 100 99 O2 Delivery Vapotherm Vapotherm O2 Flow Rate 20.00 30.00 20.00 FiO2 30 11/20/17 11/20/17 11/20/17 11/20/17 14:00 14:30 14:45 15:15 Pulse 107 105 105 112 Resp 22 28 22 B/P (MAP) 105/39 (61) 88/59 (69) 100/55 (70) 117/65 (82) Pulse Ox 99 97 98 100 O2 Delivery Vapotherm Vapotherm Vapotherm Vapotherm O2 Flow Rate 30.00 30.00 30.00 30.00 10.00 10.00 10.00 10.00 11/20/17 11/20/17 11/20/17 11/20/17 15:27 15:38 15:45 15:59 Temp 98.6 Pulse 106 Resp 53 B/P (MAP) 99/71 (80) Pulse Ox 96 O2 Delivery Vapotherm Vapotherm Vapotherm O2 Flow Rate 10.00 30.00 10.00 10.00 FiO2 30 30 11/20/17 11/20/17 11/20/17 11/20/17 16:00 17:00 18:00 18:19 Pulse 116 110 107 Resp 12 28 B/P (MAP) 105/66 (79) 90/56 (67) 110/61 (77) Pulse Ox 96 93 98 O2 Delivery Vapotherm Vapotherm Vapotherm Vapotherm O2 Flow Rate 30.00 30.00 30.00 5.00 5.00 5.00 5.00 FiO2 30 11/20/17 11/20/17 11/20/17 11/20/17 19:00 19:00 20:00 20:12 Pulse 101 101 107 Resp 21 10 B/P (MAP) 113/72 (86) 99/52 (68) Pulse Ox 95 94 95 O2 Delivery Vapotherm Vapotherm Vapotherm O2 Flow Rate 30.00 30.00 5.00 5.00 5.00 FiO2 30 11/20/17 00:00 Intake Total 1750 ml Output Total 200 ml Balance 1550 ml Capillary Refill : Less Than 3 Seconds Constitutional: appears stated age, AAO x 3, apparent distress, well-developed , well-nourished HEENT: PERRL; No normal ENT inspection, No TMs normal, No pharynx normal, No scleral icterus (R), No scleral icterus (L), No pale conjunctivae (R), No pale conjunctivae (L), No photophobia, No TM abnormal (R), No TM abnormal (L), No pharyngeal erythema, No tonsillar exudate, No other, No discharge, No EOMI; hearing is well preserved; No hard of hearing; oral hygience is good; No ulceration, No xanthelasmas are seen Neck: No non-tender, No full range of motion, No supple, No normal inspection, No carotid bruit, No limited range of motion, No lymphadenopathy (R), No lymphadenopathy (L), No tender lateral, No tender midline, No thyromegaly, No other; carotid pulses are 2 + bilaterally; No with good upstrokes Respiratory: respiratory distress, chest is bilaterally symmetric, other (Poor air entry bilaterally) Cardiovascular: regular rate-rhythm, tachycardia, S1 and S2 Gastrointestinal: No tender, No soft, No round, No distended, No pulsatile mass , No organomegaly, No guarding, No rebound, No tenderness, No hernia, No mass, No audible bowel sounds, No abnormal bowel sounds, No abdominal bruits, No spleenomegaly, No other Rectal: deferred Extremities: No normal range of motion, No non-tender, No normal inspection, No pedal edema, No calf tenderness, No normal capillary refill, No pelvis stable , No calf tenderness, No inflammation, No pedal edema, No slow capillary refill , No swelling, No other, No abrasion, No clubbing, No cyanosis, No ecchymosis, No laceration, No no lower extremity edema bilateral, No significant edema, No tenderness, No wound Neurologic/Psychiatric: no motor/sensory deficits, alert, normal mood/affect, oriented x 3, power is 5/5 both on sides Skin: No normal color, No warm/dry, No cyanosis, No cool, No diaphoresis, No damp, No ecchymosis, No jaundice, No mottled, No pallor, No rash, No tattoos/ piercings, No ulcerations, No rash on exposed areas, No ulcerations on exposed areas, No other Data Review Labs Laboratory Tests 11/20/17 03:17: White Blood Count 8.8, Red Blood Count 4.46, Hemoglobin 12.1, Hematocrit 36, Mean Corpuscular Volume 80, Mean Corpuscular Hemoglobin 27, Mean Corpuscular Hemoglobin Concent 34, Red Cell Distribution Width 18.4H, Platelet Count 259, Mean Platelet Volume 11.7H, Neutrophils (%) (Auto) 93H, Lymphocytes (%) (Auto) 6L, Monocytes (%) (Auto) 1, Eosinophils (%) (Auto) 0, Basophils (%) (Auto) 0, Neutrophils # (Auto) 8.2H, Lymphocytes # (Auto) 0.5L, Monocytes # (Auto) 0.1, Eosinophils # (Auto) 0.0, Basophils # (Auto) 0.0, Neutrophils % (Manual) 88, Lymphocytes % (Manual) 9, Monocytes % (Manual) 3, Eosinophils % (Manual) 0, Basophils % (Manual) 0, Band Neutrophils 0, Hypochromasia SLIGHT, Anisocytosis SLIGHT, Crenated Cell SLIGHT, Elliptocytes SLIGHT, Rouleau SLIGHT, Sodium Level 137, Potassium Level 3.1L, Chloride Level 106, Carbon Dioxide Level 18L, Anion Gap 13, Blood Urea Nitrogen 13, Creatinine 0.83, Estimat Glomerular Filtration Rate > 60, BUN/Creatinine Ratio 16, Glucose Level 205H, Calcium Level 9.6, Phosphorus Level 2.9, Magnesium Level 1.5L 11/20/17 11:15: Glucometer 208H 11/20/17 11:25: Blood Gas Puncture Site LEFT RADIAL, Blood Gas Patient Temperature 97.6, Arterial Blood pH 7.54H, Arterial Blood Partial Pressure CO2 19*L, Arterial Blood Partial Pressure O2 107H, Arterial Blood HCO3 16*L, Arterial Blood Total CO2 16.9L, Arterial Blood Oxygen Saturation 99, Arterial Blood Base Excess -5.9L , Torsten Test POSITIVE, Blood Gas Ventilator Setting NO, Blood Gas Inspired Oxygen 30% FI02 20 L 11/20/17 12:05: White Blood Count 15.8H, Red Blood Count 4.83, Hemoglobin 13.2, Hematocrit 39, Mean Corpuscular Volume 80, Mean Corpuscular Hemoglobin 27, Mean Corpuscular Hemoglobin Concent 34, Red Cell Distribution Width 18.7H, Platelet Count 316, Mean Platelet Volume 10.9H, Neutrophils (%) (Auto) 91H, Lymphocytes (%) (Auto) 6L, Monocytes (%) (Auto) 3, Eosinophils (%) (Auto) 0, Basophils (%) (Auto) 0, Neutrophils # (Auto) 14.4H, Lymphocytes # (Auto) 0.9L, Monocytes # (Auto) 0.5, Eosinophils # (Auto) 0.0, Basophils # (Auto) 0.0, Neutrophils % (Manual) 92, Lymphocytes % (Manual) 7, Monocytes % (Manual) 1, Eosinophils % (Manual) 0, Basophils % (Manual) 0, Band Neutrophils 0, Anisocytosis MODERATE, Sodium Level 139, Potassium Level 3.2L, Chloride Level 106, Carbon Dioxide Level 17L, Anion Gap 16H, Blood Urea Nitrogen 12, Creatinine 0.97, Estimat Glomerular Filtration Rate 60, BUN/Creatinine Ratio 12, Glucose Level 185H, Calcium Level 10.1, Phosphorus Level 1.8L, Magnesium Level 2.2, Lactic Acid Level 6.24*H, Corrected Calcium 10.0, Total Bilirubin 0.5, Aspartate Amino Transf (AST/SGOT) 9, Alanine Aminotransferase (ALT/SGPT) 11, Alkaline Phosphatase 59, Troponin I < 0.30, B- Type Natriuretic Peptide 140.5H, Total Protein 6.7, Albumin 4.1 11/20/17 13:48: Lactic Acid Level 3.59*H 11/20/17 16:24: Glucometer 142H 11/20/17 17:58: Lactic Acid Level 1.06 Microbiology 11/19/17 Urine Culture - Preliminary, Resulted Escherichia coli ECG Impression ECG Initial ECG Rhythm: S.Tach A/P-Cardiology Assessment/Admission Diagnosis Shortness of breath, respiratory distress, Moderate CAD, Previous non-ischemic Cardiomyopathy, Nausea/vomiting/diarrhea, Lactic acidosis Plan Shortness of breath is likely due to COPD and anxiety. BNP is very mildly elevated. Therefore it is very unlikely that the patient has florid congestive heart failure. Patient is on aggressive noninvasive respiratory treatment. Respiratory alkalosis is also noted. Moderate CAD with previous history of low ejection fraction. Nonischemic cardiomyopathy and was started on aggressive cardiomyopathy medications in the past. Repeat echocardiogram to evaluate for LV systolic function. Thank you for your consultation. Please call me if you have any questions. Shaye Muniz MD, FACP, FACC, FSCAI, FHRS, CCDS Interventional Cardiology Cardiac Electrophysiology Vascular Medicine and Endovascular Interventions Clinical Quality Measures DVT/VTE Risk/Contraindication: Risk Factor Score Per Nursin RFS Level Per Nursing on Admit: 4+=Very High Jennifer MUNIZ MD Nov 20, 2017 2:48 pm
--- NOTE | 2017-11-20 15:27 | Diagnostic Imaging Report ---
PROCEDURE: CT chest, abdomen, and pelvis with contrast. TECHNIQUE: Multiple contiguous axial images were obtained through the chest, abdomen, and pelvis after the administration of intravenous contrast. INDICATION: Severe shortness of air and elevated lactic acid. Patient also complains of right lower quadrant pain. CT CHEST: No axillary, hilar or mediastinal lymphadenopathy is detected. No pericardial or pleural fluid is identified. The lungs demonstrate centrilobular emphysematous changes. No infiltrates are seen. No nodule or mass is detected. IMPRESSION: Unremarkable CT of the chest. CT ABDOMEN AND PELVIS: No discrete liver mass is seen. The gallbladder is unremarkable. No biliary ductal dilatation is identified. The pancreas and spleen are unremarkable. No adrenal mass is identified. The kidneys are unremarkable. The aorta is non-aneurysmal. No central retroperitoneal or mesenteric lymphadenopathy is seen. The small and large bowel loops are normal caliber. No obstruction is seen. There is no ascites. The uterus is unremarkable. The bladder is decompressed by a Liang catheter. Bony structures are nonacute. IMPRESSION: Unremarkable CT of the abdomen and pelvis. No acute feature is detected. Dictated by: Dictated on workstation # [id number]
--- NOTE | 2017-11-20 17:05 | History & Physicial (CHS) ---
LILIAN SILVA MEDICAL STUDENT 11/20/17 1705: HPI History of Present Illness: 52 yo white woman presented to ED yesterday with anxiety, SOB, dry cough, and chest pain. Pt reports receiving prednisone and zofran from Issac Ward at [facility] two days for SOB. She states she takes Duoneb, Advair, and Spiriva for her COPD. Pt denies chest pain today, but complains of back pain. Source: patient Exam Limitations: no limitations Date seen by provider: Nov 20, 2017 Time Seen by Provider: 10:30 Attending Physician Norah Norwood MD PCP [facility] Date of Admission Nov 19, 2017 at 13:20 Home Medications Home Medications Reviewed patient Home Medication Reconciliation performed by pharmacy medication reconciliations electromechanical technician and/or nursing. Patients Allergies have been reviewed. Allergies Coded Allergies: buspirone (Verified Allergy, Mild, 05/02/17) Made"legs Shaky" amitriptyline (Verified Allergy, Unknown, 05/02/17) " MAKES ME DO WEIRD THINGS LIKE WALK IN MY SLEEP AND HAVE HALLUCINATIONS." TBI-Xvaxrt-Meejgl Hx Patient Social History Number of Children: 3 Living Status: Lives with her daughter Employed/Student: employed Alcohol Use: Denies Use Recreational Drug Use: No (4 YRS AGO) Drug of Choice: +IV METH past hx Smoking Status: Current Everyday Smoker (1ppd "forever") Type Used: Cigarettes 2nd Hand Smoke Exposure: Yes Recent Foreign Travel: No Contact w/other who traveled: No Recent Hopitalizations: No Recent Infectious Disease Expo: No Physical Abuse Screen: No Sexual Abuse: No Immunizations Up To Date Tetanus Booster (TDap): Unknown Date of Pneumonia Vaccine: Dec 08, 2011 Date of Influenza Vaccine: Dec 31, 2016 Past Medical History Past Medical History 1. HTN 2. COPD 3. Asthma 4.Chronic Migraines- with rebound headaches secondary to overuse of tylenol and ibuprofen 5. Anxiety 6. Depression 7. Endometrial hypertrophy 8. DMII 9. HLP- with elevated triglycerides 10. Chronic Insomnia 11. Gastritis 12. Methamphetamine abuse 13. Several admissions for overdose of benzodiazapine 14. Acute systolic heart failure 2014 15. Bipolar Disorder Past Surgical History 1. EGD- Gastritis Loja 2. Colonoscopy- Loja Family Medical History Significant Family History: Heart Disease, Cancer Family History: Cancer 03 MOTHER, Onset:66 (LUNG ) 09 BROTHER (LUNG ) Congestive heart failure 03 FATHER Review of Systems (CHC) Constitutional: no symptoms reported Respiratory: cough, short of breath Musculoskeletal: back pain Reviewed Test Results Reviewed Test Results Lab Laboratory Tests Test 11/19/17 11:02 11/19/17 11:04 11/19/17 11:22 11/19/17 12:37 Range/Units White Blood Count 9.3 4.3-11.0 10^3/uL Red Blood Count 5.10 4.35-5.85 10^6/uL Hemoglobin 13.5 11.5-16.0 G/DL Hematocrit 41 35-52 % Mean Corpuscular Volume 80 80-99 FL Mean Corpuscular Hemoglobin 27 25-34 PG Mean Corpuscular Hemoglobin Concent 33 32-36 G/DL Red Cell Distribution Width 18.4 H 10.0-14.5 % Platelet Count 287 130-400 10^3/uL Mean Platelet Volume 10.5 H 7.4-10.4 FL Neutrophils (%) (Auto) 56 42-75 % Lymphocytes (%) (Auto) 34 12-44 % Monocytes (%) (Auto) 8 0-12 % Eosinophils (%) (Auto) 2 0-10 % Basophils (%) (Auto) 0 0-10 % Neutrophils # (Auto) 5.1 1.8-7.8 X 10^3 Lymphocytes # (Auto) 3.2 1.0-4.0 X 10^3 Monocytes # (Auto) 0.7 0.0-1.0 X 10^3 Eosinophils # (Auto) 0.2 0.0-0.3 10^3/uL Basophils # (Auto) 0.0 0.0-0.1 10^3/uL Sodium Level 139 135-145 MMOL/L Potassium Level 3.8 3.6-5.0 MMOL/L Chloride Level 107 98-107 MMOL/L Carbon Dioxide Level 24 21-32 MMOL/L Anion Gap 8 5-14 MMOL/L Blood Urea Nitrogen 10 7-18 MG/DL Creatinine 0.82 0.60-1.30 MG/DL Estimat Glomerular Filtration Rate > 60 BUN/Creatinine Ratio 12 Glucose Level 114 H 70-105 MG/DL Calcium Level 9.7 8.5-10.1 MG/DL Corrected Calcium 9.9 8.5-10.1 MG/DL Total Bilirubin 0.5 0.1-1.0 MG/DL Aspartate Amino Transf (AST/SGOT) 16 5-34 U/L Alanine Aminotransferase (ALT/SGPT) 14 0-55 U/L Alkaline Phosphatase 57 40-136 U/L C-Reactive Protein High Sensitivity 0.25 0.00-0.50 MG/DL Total Protein 5.9 L 6.4-8.2 GM/DL Albumin 3.7 3.2-4.5 GM/DL B-Type Natriuretic Peptide 104.1 H <100.0 PG/ML D-Dimer 0.46 0.00-0.49 UG/ML Troponin I < 0.30 <0.30 NG/ML Blood Gas Puncture Site RIGHT RADIAL Blood Gas Patient Temperature 97.8 Arterial Blood pH 7.56 H 7.37-7.43 Arterial Blood Partial Pressure CO2 23 L 35-45 MMHG Arterial Blood Partial Pressure O2 198 H 79-93 MMHG Arterial Blood HCO3 21 L 23-27 MMOL/L Arterial Blood Total CO2 21.2 21.0-31.0 MMOL/L Arterial Blood Oxygen Saturation 100 94-100 % Arterial Blood Base Excess -1.6 -2.5-2.5 MMOL/L Torsten Test POSITIVE Blood Gas Ventilator Setting NO Blood Gas Inspired Oxygen 45% BIPAP Test 11/19/17 14:05 11/19/17 14:30 11/19/17 16:45 11/19/17 17:18 Range/Units Blood Gas Puncture Site RIGHT RADIAL LEFT RADIAL Blood Gas Patient Temperature 97.1 97.4 Arterial Blood pH 7.47 H 7.46 H 7.37-7.43 Arterial Blood Partial Pressure CO2 33 L 30 L 35-45 MMHG Arterial Blood Partial Pressure O2 118 H 80 79-93 MMHG Arterial Blood HCO3 24 21 L 23-27 MMOL/L Arterial Blood Total CO2 24.6 22.0 21.0-31.0 MMOL/L Arterial Blood Oxygen Saturation 100 97 94-100 % Arterial Blood Base Excess 0.1 -2.4 -2.5-2.5 MMOL/L Torsten Test POSITIVE POSITIVE Blood Gas Ventilator Setting NO NO Blood Gas Inspired Oxygen 35% BIPAP 21% BIPAP Urine Color YELLOW Urine Clarity SLIGHTLY CLOUDY Urine pH 7 5-9 Urine Specific Canmer 1.010 L 1.016-1.022 Urine Protein 1+ H NEGATIVE Urine Glucose (UA) NEGATIVE NEGATIVE Urine Ketones NEGATIVE NEGATIVE Urine Nitrite POSITIVE H NEGATIVE Urine Bilirubin NEGATIVE NEGATIVE Urine Urobilinogen NORMAL NORMAL MG/DL Urine Leukocyte Esterase 3+ H NEGATIVE Urine RBC (Auto) 2+ H NEGATIVE Urine RBC 2-5 H /HPF Urine WBC 25-50 H /HPF Urine Squamous Epithelial Cells 2-5 /HPF Urine Crystals NONE /LPF Urine Bacteria LARGE H /HPF Urine Casts NONE /LPF Urine Mucus NEGATIVE /LPF Urine Culture Indicated YES Urine Opiates Screen NEGATIVE NEGATIVE Urine Oxycodone Screen NEGATIVE NEGATIVE Urine Methadone Screen NEGATIVE NEGATIVE Urine Propoxyphene Screen NEGATIVE NEGATIVE Urine Barbiturates Screen NEGATIVE NEGATIVE Ur Tricyclic Antidepressants Screen NEGATIVE NEGATIVE Urine Phencyclidine Screen NEGATIVE NEGATIVE Urine Amphetamines Screen NEGATIVE NEGATIVE Urine Methamphetamines Screen NEGATIVE NEGATIVE Urine Benzodiazepines Screen POSITIVE H NEGATIVE Urine Cocaine Screen NEGATIVE NEGATIVE Urine Cannabinoids Screen NEGATIVE NEGATIVE Glucometer 187 H 70-110 MG/DL Test 11/20/17 03:17 11/20/17 11:15 11/20/17 11:25 11/20/17 12:05 Range/Units White Blood Count 8.8 15.8 H 4.3-11.0 10^3/uL Red Blood Count 4.46 4.83 4.35-5.85 10^6/uL Hemoglobin 12.1 13.2 11.5-16.0 G/DL Hematocrit 36 39 35-52 % Mean Corpuscular Volume 80 80 80-99 FL Mean Corpuscular Hemoglobin 27 27 25-34 PG Mean Corpuscular Hemoglobin Concent 34 34 32-36 G/DL Red Cell Distribution Width 18.4 H 18.7 H 10.0-14.5 % Platelet Count 259 316 130-400 10^3/uL Mean Platelet Volume 11.7 H 10.9 H 7.4-10.4 FL Neutrophils (%) (Auto) 93 H 91 H 42-75 % Lymphocytes (%) (Auto) 6 L 6 L 12-44 % Monocytes (%) (Auto) 1 3 0-12 % Eosinophils (%) (Auto) 0 0 0-10 % Basophils (%) (Auto) 0 0 0-10 % Neutrophils # (Auto) 8.2 H 14.4 H 1.8-7.8 X 10^3 Lymphocytes # (Auto) 0.5 L 0.9 L 1.0-4.0 X 10^3 Monocytes # (Auto) 0.1 0.5 0.0-1.0 X 10^3 Eosinophils # (Auto) 0.0 0.0 0.0-0.3 10^3/uL Basophils # (Auto) 0.0 0.0 0.0-0.1 10^3/uL Neutrophils % (Manual) 88 92 % Lymphocytes % (Manual) 9 7 % Monocytes % (Manual) 3 1 % Eosinophils % (Manual) 0 0 % Basophils % (Manual) 0 0 % Band Neutrophils 0 0 % Hypochromasia SLIGHT Anisocytosis SLIGHT MODERATE Crenated Cell SLIGHT Elliptocytes SLIGHT Rouleau SLIGHT Sodium Level 137 139 135-145 MMOL/L Potassium Level 3.1 L 3.2 L 3.6-5.0 MMOL/L Chloride Level 106 106 98-107 MMOL/L Carbon Dioxide Level 18 L 17 L 21-32 MMOL/L Anion Gap 13 16 H 5-14 MMOL/L Blood Urea Nitrogen 13 12 7-18 MG/DL Creatinine 0.83 0.97 0.60-1.30 MG/DL Estimat Glomerular Filtration Rate > 60 60 BUN/Creatinine Ratio 16 12 Glucose Level 205 H 185 H 70-105 MG/DL Calcium Level 9.6 10.1 8.5-10.1 MG/DL Phosphorus Level 2.9 1.8 L 2.3-4.7 MG/DL Magnesium Level 1.5 L 2.2 1.8-2.4 MG/DL Glucometer 208 H 70-110 MG/DL Blood Gas Puncture Site LEFT RADIAL Blood Gas Patient Temperature 97.6 Arterial Blood pH 7.54 H 7.37-7.43 Arterial Blood Partial Pressure CO2 19 *L 35-45 MMHG Arterial Blood Partial Pressure O2 107 H 79-93 MMHG Arterial Blood HCO3 16 *L 23-27 MMOL/L Arterial Blood Total CO2 16.9 L 21.0-31.0 MMOL/L Arterial Blood Oxygen Saturation 99 94-100 % Arterial Blood Base Excess -5.9 L -2.5-2.5 MMOL/L Torsten Test POSITIVE Blood Gas Ventilator Setting NO Blood Gas Inspired Oxygen 30% FI02 20 L Lactic Acid Level 6.24 *H 0.50-2.00 MMOL/L Corrected Calcium 10.0 8.5-10.1 MG/DL Total Bilirubin 0.5 0.1-1.0 MG/DL Aspartate Amino Transf (AST/SGOT) 9 5-34 U/L Alanine Aminotransferase (ALT/SGPT) 11 0-55 U/L Alkaline Phosphatase 59 40-136 U/L Troponin I < 0.30 <0.30 NG/ML B-Type Natriuretic Peptide 140.5 H <100.0 PG/ML Total Protein 6.7 6.4-8.2 GM/DL Albumin 4.1 3.2-4.5 GM/DL Test 11/20/17 13:48 11/20/17 16:24 Range/Units Lactic Acid Level 3.59 *H 0.50-2.00 MMOL/L Glucometer 142 H 70-110 MG/DL Radiology CXR showed COPD and no infiltrates EKG showed sinus rhythm Physical Exam-(CHC) Physical Exam Vital Signs VS - Last 72 Hours, by Label 11/19/17 11/19/17 11/19/17 11/19/17 11:15 11:40 12:50 13:53 Temp 98.9 Pulse 82 84 85 86 Resp 24 23 18 B/P (MAP) 160/122 (135) 126/85 Pulse Ox 99 96 100 O2 Delivery Nasal Cannula NIV Bilevel O2 Flow Rate 60.00 11/19/17 11/19/17 11/19/17 11/19/17 14:00 14:15 14:30 14:36 Pulse 84 84 82 86 Resp 20 20 19 22 B/P (MAP) 142/132 (135) 132/85 (101) 123/71 (88) Pulse Ox 99 97 98 98 O2 Delivery NIV Bilevel NIV Bilevel NIV Bilevel O2 Flow Rate 21.00 21.00 21.00 21.00 11/19/17 11/19/17 11/19/17 11/19/17 14:45 15:00 15:30 15:48 Pulse 89 92 87 Resp 23 22 21 B/P (MAP) 118/75 (89) 117/72 (87) Pulse Ox 95 96 98 O2 Delivery NIV Bilevel NIV Bilevel NIV Bilevel O2 Flow Rate 21.00 21.00 21.00 FiO2 21 11/19/17 11/19/17 11/19/17 11/19/17 16:00 16:15 16:30 16:37 Temp 97.3 Pulse 101 106 110 Resp 21 25 24 B/P (MAP) 87/64 (72) 88/25 (46) 149/98 (115) Pulse Ox 98 98 98 O2 Delivery NIV Bilevel NIV Bilevel NIV Bilevel O2 Flow Rate 21.00 21.00 21.00 11/19/17 11/19/17 11/19/17 11/19/17 17:00 17:15 18:00 18:37 Pulse 112 107 98 102 Resp 10 41 24 25 B/P (MAP) 138/99 (112) 106/73 (84) 105/91 (96) Pulse Ox 96 96 95 95 O2 Delivery NIV Bilevel NIV Bilevel NIV Bilevel O2 Flow Rate 21.00 21.00 21.00 21.00 11/19/17 11/19/17 11/19/17 11/19/17 19:00 19:00 19:48 19:50 Temp 98.6 Pulse 96 99 Resp 19 B/P (MAP) 103/75 (84) Pulse Ox 97 98 98 O2 Delivery NIV Bilevel Vapotherm Vapotherm O2 Flow Rate 21.00 30.00 40.00 40.00 FiO2 30 11/19/17 11/19/17 11/19/17 11/19/17 20:00 20:00 21:00 21:45 Pulse 92 93 Resp 8 17 B/P (MAP) 102/73 (83) 97/69 (78) Pulse Ox 98 98 97 98 O2 Delivery Vapotherm Vapotherm Vapotherm Vapotherm O2 Flow Rate 40.00 30.00 30.00 40.00 40.00 40.00 FiO2 30 30 11/19/17 11/19/17 11/19/17 11/19/17 21:48 22:00 23:00 23:31 Temp 97.9 Pulse 101 112 Resp 17 19 B/P (MAP) 87/52 (64) 96/65 (75) Pulse Ox 98 97 98 O2 Delivery Vapotherm Vapotherm Vapotherm O2 Flow Rate 30.00 30.00 30.00 35.00 35.00 35.00 11/20/17 11/20/17 11/20/17 11/20/17 00:00 00:00 00:44 00:49 Pulse 92 Resp 18 B/P (MAP) 102/73 (83) Pulse Ox 98 98 100 O2 Delivery Vapotherm Vapotherm Vapotherm Vapotherm O2 Flow Rate 40.00 30.00 35.00 30.00 35.00 30.00 FiO2 30 30 11/20/17 11/20/17 11/20/17 11/20/17 01:00 01:00 02:00 02:09 Pulse 93 109 101 Resp 17 17 B/P (MAP) 88/65 (73) 89/57 (68) Pulse Ox 97 97 97 O2 Delivery Vapotherm Vapotherm Vapotherm O2 Flow Rate 30.00 30.00 30.00 30.00 30.00 FiO2 30 11/20/17 11/20/17 11/20/17 11/20/17 03:00 03:22 04:00 04:00 Temp 97.6 Pulse 112 114 Resp 19 22 B/P (MAP) 106/64 (78) 88/62 (71) Pulse Ox 98 98 98 O2 Delivery Vapotherm Vapotherm Vapotherm O2 Flow Rate 30.00 30.00 30.00 30.00 30.00 FiO2 30 11/20/17 11/20/17 11/20/17 11/20/17 04:30 05:00 06:00 06:25 Pulse 112 112 Resp 11 16 B/P (MAP) 91/59 (70) 77/57 (64) Pulse Ox 97 98 98 O2 Delivery Vapotherm Vapotherm Vapotherm Vapotherm O2 Flow Rate 30.00 30.00 30.00 30.00 30.00 30.00 20.00 FiO2 30 11/20/17 11/20/17 11/20/17 11/20/17 06:36 07:00 07:00 07:30 Pulse 109 109 116 Resp 18 38 B/P (MAP) 83/48 (60) Pulse Ox 98 98 96 O2 Delivery Vapotherm Vapotherm Vapotherm O2 Flow Rate 30.00 30.00 30.00 20.00 20.00 FiO2 30 11/20/17 11/20/17 11/20/17 11/20/17 08:00 08:05 08:30 08:46 Temp 98.8 Pulse 115 112 Resp 20 21 B/P (MAP) 88/51 (63) 90/53 (65) Pulse Ox 97 97 97 96 O2 Delivery Vapotherm Vapotherm Vapotherm Vapotherm O2 Flow Rate 30.00 20.00 30.00 20.00 20.00 20.00 FiO2 30 30 11/20/17 11/20/17 11/20/17 11/20/17 09:00 09:30 10:00 10:15 Pulse 111 112 110 110 Resp 19 17 12 22 B/P (MAP) 93/53 (66) 103/63 (76) 115/71 (86) 103/62 (76) Pulse Ox 98 97 100 98 O2 Delivery Vapotherm Vapotherm Vapotherm Vapotherm O2 Flow Rate 30.00 30.00 30.00 30.00 20.00 20.00 20.00 20.00 11/20/17 11/20/17 11/20/17 11/20/17 10:51 11:00 11:15 11:30 Pulse 112 112 115 Resp 19 22 19 B/P (MAP) 198/184 (189) 105/72 (83) Pulse Ox 99 95 100 100 O2 Delivery Vapotherm Vapotherm Vapotherm Vapotherm O2 Flow Rate 20.00 30.00 30.00 30.00 20.00 20.00 20.00 FiO2 30 11/20/17 11/20/17 11/20/17 11/20/17 11:35 11:35 11:45 12:00 Temp 97.6 Pulse 115 120 Resp 15 45 B/P (MAP) 90/61 (71) Pulse Ox 100 99 O2 Delivery Vapotherm Vapotherm Vapotherm O2 Flow Rate 20.00 30.00 30.00 20.00 20.00 FiO2 30 11/20/17 11/20/17 11/20/17 11/20/17 12:30 12:56 13:00 13:00 Pulse 115 112 111 Resp 30 19 B/P (MAP) 89/56 (67) 80/44 (56) Pulse Ox 100 100 99 O2 Delivery Vapotherm Vapotherm Vapotherm O2 Flow Rate 30.00 20.00 30.00 20.00 20.00 FiO2 30 11/20/17 11/20/17 11/20/17 11/20/17 13:43 14:00 14:30 14:45 Temp 99.0 Pulse 107 105 105 Resp 22 28 B/P (MAP) 105/39 (61) 88/59 (69) 100/55 (70) Pulse Ox 99 97 98 O2 Delivery Vapotherm Vapotherm Vapotherm O2 Flow Rate 30.00 30.00 30.00 10.00 10.00 10.00 11/20/17 11/20/17 11/20/17 11/20/17 15:15 15:27 15:38 15:45 Temp 98.6 Pulse 112 106 Resp 22 53 B/P (MAP) 117/65 (82) 99/71 (80) Pulse Ox 100 O2 Delivery Vapotherm Vapotherm Vapotherm O2 Flow Rate 30.00 10.00 30.00 10.00 10.00 FiO2 30 11/20/17 11/20/17 15:59 16:00 Pulse 116 B/P (MAP) 105/66 (79) Pulse Ox 96 O2 Delivery Vapotherm Vapotherm O2 Flow Rate 10.00 30.00 5.00 FiO2 30 Capillary Refill : Less Than 3 Seconds Temperature (Fahrenheit): 97.6 General Appearance: no apparent distress Respiratory: no respiratory distress, wheezing (bilaterally) Cardiovascular: regular rate, rhythm, no edema, no gallop, no murmur Gastrointestinal: normal bowel sounds Extremities: other (RLS) Neurologic/Psychiatric: oriented x 3, other (tardive dyskinesia) Assessment/Plan Assessment/Plan Admission Dx COPD Exacerbation Admission Status: Inpatient Order (span 2 midnights) Reason for Inpatient Admission: COPD Exacerbation Assessment & Plan 1.Acute COPD Exacerbation Continue oxygen, albuterol/ipratropium and methylprednisolone. No need for antibiotics. Low blood pressure so for now will keep pt in ICU. Consider fourth floor once hypotension resolves. 2. UTI Urinalysis showed 1+ nitrites, 3+ LE, and 25-50 WBCs. Will start IV ceftriaxone for now. Urine culture still pending. 3. Chronic CHF Pt reports she could not afford the life vest that Dr. Auguste ordered back in September. Will consult cardio today because she has 15% EF and slightly elevated BNP at 104. Clinical Quality Measures DVT/VTE Risk/Contraindication: Risk Factor Score Per Nursin RFS Level Per Nursing on Admit: 4+=Very High NORAH NORWOOD MD 11/20/17 8130: Home Medications Allergies Coded Allergies: buspirone (Verified Allergy, Mild, 05/02/17) Made"legs Shaky" amitriptyline (Verified Allergy, Unknown, 05/02/17) " MAKES ME DO WEIRD THINGS LIKE WALK IN MY SLEEP AND HAVE HALLUCINATIONS." NAF-Sskfuo-Nzoasy Hx Family Medical History Family History: Cancer 03 MOTHER, Onset:66 (LUNG ) 09 BROTHER (LUNG ) Congestive heart failure 03 FATHER Supervisory-Addendum Brief Supervisory Addendum Patient interviewed and examined by me along with MS3 Lilian Silva, agree with documentation unless otherwise noted. Patient with suspected COPD exacerbation, no evidence of pneumonia or sepsis on arrival with no fever, tachycardia or leukocytosis. Appreciate Pulmonology recommendations. Hypotensive today, concern that it may be cardiac related as she had cardiogenic hypotension requiring dobutamine drip in previous admission. Start ceftriaxone for UTI. LILIAN SILVA MEDICAL STUDENT Nov 20, 2017 17:05 NORAH NORWOOD MD Nov 20, 2017 17:51
[2017-11-20] MEDS ORDERED: DEXMEDETOMIDINE INJECTION 400 MCG in NS (IVPB) 96 ML IV PRN (19:15)
[2017-11-20] MEDS: risperiDONE 1 MG (RisperDAL) TAB PO SCH (21:17)
[2017-11-20] MEDS: LIDOCAINE PATCH REMOVAL TP SCH (21:19)
[2017-11-20] MEDS: PIPERACILLIN/TAZO 4.5 GM/NS 100 ML IV SCH ×2 (22:19)
[2017-11-21] VITALS (13 sets, daily range): BP systolic 86–140; BP diastolic 46–88
[2017-11-21] MEDS: RT-ALBUTEROL/IPRATROPIUM 3 ML (DUONEB) VIAL INH SCH ×12 (00:18→22:04)
[2017-11-21 04:03] LABS: BASOPHILS % (AUTO) 0 % (0-10); EOSINOPHILS % (AUTO) 0 % (0-10); HEMATOCRIT 34 % (35-52); HEMOGLOBIN 11.4 G/DL (11.5-16.0); LYMPHOCYTES # (AUTO) 0.6 X 10^3 (1.0-4.0); LYMPHOCYTES % (AUTO) 3 % (12-44); MEAN CORPUSCULAR HEMOGLOBIN 27 PG (25-34); MEAN CORPUSCULAR HGB CONC 33 G/DL (32-36); MEAN CORPUSCULAR VOLUME 82 FL (80-99); MEAN PLATELET VOLUME 11.2 FL (7.4-10.4); MONOCYTES # (AUTO) 0.6 X 10^3 (0.0-1.0); MONOCYTES % (AUTO) 3 % (0-12); NEUTROPHILS # (AUTO) 18.3 X 10^3 (1.8-7.8); NEUTROPHILS % (AUTO) 94 % (42-75); PLATELET COUNT 256 10^3/uL (130-400); RED BLOOD COUNT 4.19 10^6/uL (4.35-5.85); RED CELL DISTRIBUTION WIDTH 19.6 % (10.0-14.5); WHITE BLOOD COUNT 19.5 10^3/uL (4.3-11.0)
[2017-11-21 04:28] LABS: CALCIUM 8.9 MG/DL (8.5-10.1); CREATININE SERUM 0.98 MG/DL (0.60-1.30); MAGNESIUM 2.2 MG/DL (1.8-2.4)
[2017-11-21] MEDS: methylPREDNISolone 40 MG/ML (Solu-MEDROL) VIAL IV SCH (05:30)
[2017-11-21] MEDS: morphine INJ 4 MG/ML 1 ML (VIAL/SYRINGE) IVP PRN ×5 (05:31→23:54)
[2017-11-21] MEDS: PIPERACILLIN/TAZO 4.5 GM/NS 100 ML IV SCH ×6 (06:26→23:53)
--- NOTE | 2017-11-21 06:29 | Pulmonary Progress Note ---
Subjective Time Seen by Provider: 06:27 Subjective/Events-last exam Yesterday after seeing patient she developed worsening SOB with increased WOB. Pt was given 2amps of bicarb and is now improved. She is now doing well with NC. 4th floor transfer was placed on hold. Sepsis Event Evaluation Height, Weight, BMI Height: 5'9.00" Weight: 208lbs. 12.0oz. 94.165198px; 29.1 BMI Method:Stated Focused Exam Lactate Level 11/20/17 12:05: Lactic Acid Level 6.24*H 11/20/17 13:48: Lactic Acid Level 3.59*H 11/20/17 17:58: Lactic Acid Level 1.06 Exam Exam Vital Signs Date Time Temp Pulse Resp B/P (MAP) Pulse Ox O2 Delivery O2 Flow Rate FiO2 11/21/17 06:17 96 12 93/57 (69) 99 Nasal Cannula 3.00 11/21/17 05:00 96 16 91/53 (66) 96 Nasal Cannula 3.00 11/21/17 04:17 98 Nasal Cannula 3.00 11/21/17 04:00 97 Nasal Cannula 3.00 30 11/21/17 04:00 98.0 94 18 91/51 (64) 97 Nasal Cannula 3.00 11/21/17 03:00 92 12 107/62 (77) 96 Nasal Cannula 3.00 11/21/17 02:16 100 Nasal Cannula 3.00 11/21/17 02:00 93 18 108/78 (88) 97 Nasal Cannula 3.00 11/21/17 01:00 98 18 100/54 (69) 97 Nasal Cannula 3.00 11/21/17 01:00 92 11/21/17 00:19 96 Nasal Cannula 3.00 11/21/17 00:00 98.0 102 18 92/49 (63) 96 Nasal Cannula 3.00 11/21/17 00:00 98 Nasal Cannula 3.00 30 11/20/17 23:00 99 18 106/65 (79) 98 Nasal Cannula 3.00 11/20/17 22:19 99 Nasal Cannula 3.00 11/20/17 22:00 104 18 91/52 (65) 97 Nasal Cannula 3.00 11/20/17 21:00 111 46 114/59 (77) 98 Nasal Cannula 3.00 11/20/17 20:12 95 Vapotherm 5.00 30 11/20/17 20:00 98.1 96 Nasal Cannula 3.00 11/20/17 20:00 96 Nasal Cannula 3.00 30 11/20/17 20:00 107 10 99/52 (68) 94 Vapotherm 30.00 5.00 11/20/17 19:00 101 11/20/17 19:00 101 21 113/72 (86) 95 Vapotherm 30.00 5.00 11/20/17 18:19 98 Vapotherm 5.00 30 11/20/17 18:00 107 28 110/61 (77) 93 Vapotherm 30.00 5.00 11/20/17 17:00 110 12 90/56 (67) 96 Vapotherm 30.00 5.00 11/20/17 16:00 116 105/66 (79) Vapotherm 30.00 5.00 11/20/17 15:59 96 Vapotherm 10.00 30 11/20/17 15:45 106 53 99/71 (80) Vapotherm 30.00 10.00 11/20/17 15:38 98.6 11/20/17 15:27 Vapotherm 10.00 30 11/20/17 15:15 112 22 117/65 (82) 100 Vapotherm 30.00 10.00 11/20/17 14:45 105 28 100/55 (70) 98 Vapotherm 30.00 10.00 11/20/17 14:30 105 22 88/59 (69) 97 Vapotherm 30.00 10.00 11/20/17 14:00 107 105/39 (61) 99 Vapotherm 30.00 10.00 11/20/17 13:43 99.0 11/20/17 13:00 111 19 80/44 (56) 99 Vapotherm 30.00 20.00 11/20/17 13:00 112 11/20/17 12:56 100 Vapotherm 20.00 30 11/20/17 12:30 115 30 89/56 (67) 100 Vapotherm 30.00 20.00 11/20/17 12:00 120 45 Vapotherm 30.00 20.00 11/20/17 11:45 115 15 90/61 (71) 99 Vapotherm 30.00 20.00 11/20/17 11:35 97.6 11/20/17 11:35 100 Vapotherm 20.00 30 11/20/17 11:30 115 19 100 Vapotherm 30.00 20.00 11/20/17 11:15 112 22 105/72 (83) 100 Vapotherm 30.00 20.00 11/20/17 11:00 112 19 198/184 (189) 95 Vapotherm 30.00 20.00 11/20/17 10:51 99 Vapotherm 20.00 30 11/20/17 10:15 110 22 103/62 (76) 98 Vapotherm 30.00 20.00 11/20/17 10:00 110 12 115/71 (86) 100 Vapotherm 30.00 20.00 11/20/17 09:30 112 17 103/63 (76) 97 Vapotherm 30.00 20.00 11/20/17 09:00 111 19 93/53 (66) 98 Vapotherm 30.00 20.00 11/20/17 08:46 96 Vapotherm 20.00 30 11/20/17 08:30 112 21 90/53 (65) 97 Vapotherm 30.00 20.00 11/20/17 08:05 97 Vapotherm 20.00 30 11/20/17 08:00 98.8 115 20 88/51 (63) 97 Vapotherm 30.00 20.00 11/20/17 07:30 116 38 96 Vapotherm 30.00 20.00 11/20/17 07:00 109 11/20/17 07:00 109 18 83/48 (60) 98 Vapotherm 30.00 20.00 11/20/17 06:36 98 Vapotherm 30.00 30 11/20/17 06:25 Vapotherm 30.00 20.00 I & O 11/21/17 07:00 Intake Total 7752.35 ml Output Total 3000 ml Balance 4752.35 ml Height & Weight Height: 5'9.00" Weight: 208lbs. 12.0oz. [id number]; 29.1 BMI Method:Stated General Appearance: No Apparent Distress, WD/WN, Obese, Severe Distress HEENT: TMs Normal, Pharynx Normal Neck: Normal Inspection, Non Tender, Supple Respiratory: No Accessory Muscle Use, No Respiratory Distress, Decreased Breath Sounds Cardiovascular: No Edema, No Gallop Capillary Refill: Less Than 3 Seconds Gastrointestinal: normal bowel sounds Extremity: Normal Capillary Refill, Normal Inspection Neurologic/Psychiatric: Depressed Affect, Disoriented Skin: Normal Color, Warm/Dry Lymphatic: No Adenopathy Results Lab Laboratory Tests 11/19/17 11:02 11/20/17 03:17 11/20/17 12:05 11/21/17 03:18 Assessment/Plan Assessment/Plan Acute on Chronic respiratory failure -Continue BiPAP PRN SVNs Q4 -change solumedrol to prednisone taper -Heplock IVF CHF with EF 15% -Lasix Morbid obesity hx of methamphetamine use hx of medical noncompliance with multiple hospitalizations. Transfer to 4th floor WILLIAMS THOMAS DO Nov 21, 2017 06:29
[2017-11-21] MEDS: PANTOPRAZOLE 40 MG (PROTONIX) VIAL IV SCH (09:22)
[2017-11-21] MEDS: predniSONE 10 MG TAB PO SCH (09:23)
[2017-11-21] MEDS: FUROSEMIDE 40 MG/4 ML INJ (LASIX) IVP SCH (09:23)
[2017-11-21] MEDS: risperiDONE 1 MG (RisperDAL) TAB PO SCH ×2 (09:23→20:44)
[2017-11-21] MEDS: LIDOCAINE (LIDODERM) 5% PATCH TOP SCH (09:23)
--- NOTE | 2017-11-21 10:14 | Diagnostic Imaging Report ---
Indication: Dyspnea. Comparison: 11/20/2017. Findings: No change in basilar curvilinear opacities, greater on the left. Small left pleural effusion is similar. No pneumothorax. Stable cardiomegaly. Impression: No change in basilar heterogeneous opacities, greater on the left. Dictated by: Dictated on workstation # [id number]
[2017-11-21] MEDS ORDERED: PROMETHAZINE INJ 25 MG/ML (PHENERGAN) AMP IVP PRN (10:45)
--- NOTE | 2017-11-21 13:07 | Cardiology Progress Note ---
Cardiology SOAP Progress Note Subjective: No cardiac complaints. Objective: I&O/Vital Signs 11/21/17 11/21/17 11/21/17 11/21/17 02:00 02:16 03:00 04:00 Temp 98.0 Pulse 93 92 94 Resp 18 12 18 B/P (MAP) 108/78 (88) 107/62 (77) 91/51 (64) Pulse Ox 97 100 96 97 O2 Delivery Nasal Cannula Nasal Cannula Nasal Cannula Nasal Cannula O2 Flow Rate 3.00 3.00 3.00 3.00 11/21/17 11/21/17 11/21/17 11/21/17 04:00 04:17 05:00 06:17 Pulse 96 96 Resp 16 12 B/P (MAP) 91/53 (66) 93/57 (69) Pulse Ox 97 98 96 99 O2 Delivery Nasal Cannula Nasal Cannula Nasal Cannula Nasal Cannula O2 Flow Rate 3.00 3.00 3.00 3.00 FiO2 30 11/21/17 11/21/17 11/21/17 11/21/17 06:38 07:00 07:00 08:00 Pulse 97 97 102 Resp 12 20 B/P (MAP) 100/66 (77) 98/72 (81) Pulse Ox 97 97 96 O2 Delivery Nasal Cannula Nasal Cannula Nasal Cannula O2 Flow Rate 3.00 3.00 3.00 11/21/17 11/21/17 11/21/17 11/21/17 08:34 08:55 08:55 09:00 Temp 98.6 Pulse 94 Resp 19 B/P (MAP) 105/67 (80) Pulse Ox 97 96 97 O2 Delivery Nasal Cannula Nasal Cannula Nasal Cannula Nasal Cannula O2 Flow Rate 3.00 3.00 3.00 3.00 11/21/17 13:01 O2 Delivery Nasal Cannula O2 Flow Rate 3.00 11/21/17 00:00 Intake Total 5150.35 ml Output Total 1250 ml Balance 3900.35 ml Weight (Pounds): 208 Weight (Ounces): 12.0 Weight (Calculated Kilograms): 94.467169 Constitutional: appears stated age, AAO x 3, apparent distress, well-developed , well-nourished Respiratory: respiratory distress, chest is bilaterally symmetric, other (Poor air entry bilaterally) Cardiovascular: regular rate-rhythm, tachycardia, S1 and S2 Gastrointestional: No tender, No soft, No round, No distended, No pulsatile mass, No organomegaly, No guarding, No rebound, No tenderness, No hernia, No mass, No audible bowel sounds, No abnormal bowel sounds, No abdominal bruits, No spleenomegaly, No other Extremities: No normal range of motion, No non-tender, No normal inspection, No pedal edema, No calf tenderness, No normal capillary refill, No pelvis stable , No calf tenderness, No inflammation, No pedal edema, No slow capillary refill , No swelling, No other, No abrasion, No clubbing, No cyanosis, No ecchymosis, No laceration, No no lower extremity edema bilateral, No significant edema, No tenderness, No wound Neurologic/Psychiatric: no motor/sensory deficits, alert, normal mood/affect, oriented x 3, power is 5/5 both on sides Skin: No normal color, No warm/dry, No cyanosis, No cool, No diaphoresis, No damp, No ecchymosis, No jaundice, No mottled, No pallor, No rash, No tattoos/ piercings, No ulcerations, No rash on exposed areas, No ulcerations on exposed areas, No other Results/Procedures: Labs Laboratory Tests 11/20/17 13:48: Lactic Acid Level 3.59*H 11/20/17 16:24: Glucometer 142H 11/20/17 17:58: Lactic Acid Level 1.06 11/20/17 21:22: Glucometer 212H 11/21/17 03:18: White Blood Count 19.5H, Red Blood Count 4.19L, Hemoglobin 11.4L, Hematocrit 34L , Mean Corpuscular Volume 82, Mean Corpuscular Hemoglobin 27, Mean Corpuscular Hemoglobin Concent 33, Red Cell Distribution Width 19.6H, Platelet Count 256, Mean Platelet Volume 11.2H, Neutrophils (%) (Auto) 94H, Lymphocytes (%) (Auto) 3L, Monocytes (%) (Auto) 3, Eosinophils (%) (Auto) 0, Basophils (%) (Auto) 0, Neutrophils # (Auto) 18.3H, Lymphocytes # (Auto) 0.6L, Monocytes # (Auto) 0.6, Eosinophils # (Auto) 0.0, Basophils # (Auto) 0.0, Sodium Level 140, Potassium Level 4.0, Chloride Level 109H, Carbon Dioxide Level 20L, Anion Gap 11, Blood Urea Nitrogen 16, Creatinine 0.98, Estimat Glomerular Filtration Rate 59, BUN/ Creatinine Ratio 16, Glucose Level 180H, Calcium Level 8.9, Phosphorus Level 3.0 , Magnesium Level 2.2 11/21/17 11:54: Glucometer 157H Microbiology 11/19/17 Urine Culture - Final, Complete Escherichia coli A/P: Assessment/Dx: Shortness of breath, respiratory distress, Moderate CAD, Previous non-ischemic Cardiomyopathy, Nausea/vomiting/diarrhea, Lactic acidosis Plan: Shortness of breath is likely due to COPD and anxiety. BNP is very mildly elevated. Therefore it is very unlikely that the patient has florid congestive heart failure. Patient is on aggressive noninvasive respiratory treatment. Respiratory alkalosis is also noted. Moderate CAD with previous history of low ejection fraction. Nonischemic cardiomyopathy and was started on aggressive cardiomyopathy medications in the past. Repeat echocardiogram showed normal LV function. Significant improvement in LV function on aggressive cardiomyopathy medications. Thank you for your consultation. Please call me if you have any questions. Shaye Muniz MD, FACP, FACC, FSCAI, FHRS, CCDS Interventional Cardiology Cardiac Electrophysiology Vascular Medicine and Endovascular Interventions Focused Exam Lactate Level 11/20/17 12:05: Lactic Acid Level 6.24*H 11/20/17 13:48: Lactic Acid Level 3.59*H 11/20/17 17:58: Lactic Acid Level 1.06 Jennifer MUNIZ MD Nov 21, 2017 1:07 pm
[2017-11-21] MEDS: IBUPROFEN 800 MG (MOTRIN) TAB PO PRN ×2 (13:59→20:13)
--- NOTE | 2017-11-21 14:04 | Progress Note (SOAP) ---
Subjective Subjective/Events-last exam Feeling improved. Respiratory status is improving. Review of Systems Date Seen by Provider: Nov 21, 2017 Time Seen by Provider: 07:40 Focused Exam Lactate Level 11/20/17 12:05: Lactic Acid Level 6.24*H 11/20/17 13:48: Lactic Acid Level 3.59*H 11/20/17 17:58: Lactic Acid Level 1.06 Objective Exam Last Set of Vital Signs Vital Signs Date Time Temp Pulse Resp B/P (MAP) Pulse Ox O2 Delivery O2 Flow Rate FiO2 11/21/17 13:42 98.2 104 18 97/53 (68) 96 Nasal Cannula 3.00 11/21/17 04:00 30 Capillary Refill : Less Than 3 Seconds I&O Intake and Output 11/21/17 00:00 Intake Total 6292.35 ml Output Total 3400 ml Balance 2892.35 ml Intake Oral 3164 ml IV Total 3128.35 ml Output Urine Total 3400 ml General: Alert, Oriented X3, Cooperative Lungs: Normal Air Movement, Other (mild exp wheezes) Heart: Regular Rate Psych/Mental Status: Mood NL Results/Procedures Lab Laboratory Tests 11/20/17 16:24: Glucometer 142H 11/20/17 17:58: Lactic Acid Level 1.06 11/20/17 21:22: Glucometer 212H 11/21/17 03:18: White Blood Count 19.5H, Red Blood Count 4.19L, Hemoglobin 11.4L, Hematocrit 34L , Mean Corpuscular Volume 82, Mean Corpuscular Hemoglobin 27, Mean Corpuscular Hemoglobin Concent 33, Red Cell Distribution Width 19.6H, Platelet Count 256, Mean Platelet Volume 11.2H, Neutrophils (%) (Auto) 94H, Lymphocytes (%) (Auto) 3L, Monocytes (%) (Auto) 3, Eosinophils (%) (Auto) 0, Basophils (%) (Auto) 0, Neutrophils # (Auto) 18.3H, Lymphocytes # (Auto) 0.6L, Monocytes # (Auto) 0.6, Eosinophils # (Auto) 0.0, Basophils # (Auto) 0.0, Sodium Level 140, Potassium Level 4.0, Chloride Level 109H, Carbon Dioxide Level 20L, Anion Gap 11, Blood Urea Nitrogen 16, Creatinine 0.98, Estimat Glomerular Filtration Rate 59, BUN/ Creatinine Ratio 16, Glucose Level 180H, Calcium Level 8.9, Phosphorus Level 3.0 , Magnesium Level 2.2 11/21/17 11:54: Glucometer 157H Microbiology 11/19/17 Urine Culture - Final, Complete Escherichia coli Radiology CXR showed COPD and no infiltrates Procedures EKG showed sinus rhythm Assessment/Plan Assessment/Plan Assessment & Plan 1.Acute COPD Exacerbation - Continue oxygen, albuterol/ipratropium and methylprednisolone. No need for antibiotics. Low blood pressure so for now will keep pt in ICU. Consider fourth floor once hypotension resolves. 11/21 - current floor status; improved wheezing and respiratory distress. Solumedrol DCd; on Prednisone taper. 2. UTI; E. Coli -Urinalysis showed 1+ nitrites, 3+ LE, and 25-50 WBCs. Will start IV ceftriaxone for now. Urine culture still pending. 11/21 - urine culture shows E. coli - dueñas sensitive 3. Moderate CAD w/ previously history of low EF/nonischemic cardiomyopathy -Pt reports she could not afford the life vest that Dr. Auguste ordered back in September. Will consult cardio today because she has 15% EF and slightly elevated BNP at 104. 11/21 - seen in consultation by Dr. Muniz - Moderate CAD with previous history of low ejection fraction. Nonischemic cardiomyopathy and was started on aggressive cardiomyopathy medications in the past. Repeat echocardiogram showed normal LV function. Significant improvement in LV function on aggressive cardiomyopathy medications. Disp: Floor status Anticipate DC home tomorrow. Clinical Quality Measures DVT/VTE Risk/Contraindication: Risk Factor Score Per Nursin RFS Level Per Nursing on Admit: 4+=Very High CONNOR JOHNSTON DO Nov 21, 2017 14:04
[2017-11-21] MEDS: ENOXAPARIN 40 MG/0.4 ML (LOVENOX) SYR SC SCH (15:12)
[2017-11-21] MEDS: LIDOCAINE PATCH REMOVAL TP SCH (21:17)
[2017-11-22] VITALS: BP 105/56
[2017-11-22] MEDS: RT-ALBUTEROL/IPRATROPIUM 3 ML (DUONEB) VIAL INH SCH ×6 (00:07→11:00)
[2017-11-22 04:00] VITALS: BP 104/56
[2017-11-22 04:14] LABS: BASOPHILS % (AUTO) 0 % (0-10); EOSINOPHILS % (AUTO) 0 % (0-10); HEMATOCRIT 34 % (35-52); HEMOGLOBIN 11.1 G/DL (11.5-16.0); LYMPHOCYTES # (AUTO) 1.4 X 10^3 (1.0-4.0); LYMPHOCYTES % (AUTO) 9 % (12-44); MEAN CORPUSCULAR HEMOGLOBIN 27 PG (25-34); MEAN CORPUSCULAR HGB CONC 33 G/DL (32-36); MEAN CORPUSCULAR VOLUME 84 FL (80-99); MEAN PLATELET VOLUME 10.5 FL (7.4-10.4); MONOCYTES # (AUTO) 1.1 X 10^3 (0.0-1.0); MONOCYTES % (AUTO) 7 % (0-12); NEUTROPHILS # (AUTO) 13.7 X 10^3 (1.8-7.8); NEUTROPHILS % (AUTO) 85 % (42-75); PLATELET COUNT 245 10^3/uL (130-400); RED BLOOD COUNT 4.08 10^6/uL (4.35-5.85); RED CELL DISTRIBUTION WIDTH 19.7 % (10.0-14.5); WHITE BLOOD COUNT 16.2 10^3/uL (4.3-11.0)
[2017-11-22 04:35] LABS: CREATININE SERUM 1.2 MG/DL (0.60-1.30); POTASSIUM 3.8 MMOL/L (3.6-5.0)
[2017-11-22] MEDS: PIPERACILLIN/TAZO 4.5 GM/NS 100 ML IV SCH ×2 (06:04)
[2017-11-22] MEDS: morphine INJ 4 MG/ML 1 ML (VIAL/SYRINGE) IVP PRN (06:04)
[2017-11-22 08:00] VITALS: BP 135/71
[2017-11-22] MEDS: FUROSEMIDE 40 MG/4 ML INJ (LASIX) IVP SCH (08:14)
[2017-11-22] MEDS: risperiDONE 1 MG (RisperDAL) TAB PO SCH (08:14)
[2017-11-22] MEDS: predniSONE 10 MG TAB PO SCH (08:14)
[2017-11-22] MEDS: PANTOPRAZOLE 40 MG (PROTONIX) VIAL IV SCH (08:14)
[2017-11-22] MEDS: LIDOCAINE (LIDODERM) 5% PATCH TOP SCH (08:15)
--- NOTE | 2017-11-22 10:25 | Cardiology Progress Note ---
Cardiology SOAP Progress Note Subjective: Feeling better. Objective: I&O/Vital Signs 11/22/17 11/22/17 11/22/17 11/22/17 00:00 00:08 01:00 02:12 Temp 98.2 Pulse 87 94 Resp 20 B/P (MAP) 105/56 (72) Pulse Ox 97 95 97 O2 Delivery Nasal Cannula Nasal Cannula Nasal Cannula O2 Flow Rate 3.00 3.00 3.00 11/22/17 11/22/17 11/22/17 11/22/17 04:00 04:12 07:00 07:55 Temp 98.1 Pulse 86 Resp 20 B/P (MAP) 104/56 (72) Pulse Ox 99 97 99 96 O2 Delivery Nasal Cannula Nasal Cannula Nasal Cannula Nasal Cannula O2 Flow Rate 3.00 3.00 3.00 3.00 11/22/17 11/22/17 08:00 08:48 Temp 98.2 Pulse 89 Resp 18 B/P (MAP) 135/71 (92) Pulse Ox 98 98 O2 Delivery Nasal Cannula Nasal Cannula O2 Flow Rate 2.00 3.00 11/22/17 00:00 Intake Total 2454 ml Balance 2454 ml Weight (Pounds): 218 Weight (Ounces): 12.0 Weight (Calculated Kilograms): 98.288057 Constitutional: appears stated age, AAO x 3, apparent distress, well-developed , well-nourished Respiratory: respiratory distress, chest is bilaterally symmetric, other (Poor air entry bilaterally) Cardiovascular: regular rate-rhythm, tachycardia, S1 and S2 Gastrointestional: No tender, No soft, No round, No distended, No pulsatile mass, No organomegaly, No guarding, No rebound, No tenderness, No hernia, No mass, No audible bowel sounds, No abnormal bowel sounds, No abdominal bruits, No spleenomegaly, No other Extremities: No normal range of motion, No non-tender, No normal inspection, No pedal edema, No calf tenderness, No normal capillary refill, No pelvis stable , No calf tenderness, No inflammation, No pedal edema, No slow capillary refill , No swelling, No other, No abrasion, No clubbing, No cyanosis, No ecchymosis, No laceration, No no lower extremity edema bilateral, No significant edema, No tenderness, No wound Neurologic/Psychiatric: no motor/sensory deficits, alert, normal mood/affect, oriented x 3, power is 5/5 both on sides Skin: No normal color, No warm/dry, No cyanosis, No cool, No diaphoresis, No damp, No ecchymosis, No jaundice, No mottled, No pallor, No rash, No tattoos/ piercings, No ulcerations, No rash on exposed areas, No ulcerations on exposed areas, No other Results/Procedures: Labs Laboratory Tests 11/21/17 11:54: Glucometer 157H 11/21/17 15:59: Glucometer 158H 11/21/17 21:51: Glucometer 161H 11/22/17 03:35: White Blood Count 16.2H, Red Blood Count 4.08L, Hemoglobin 11.1L, Hematocrit 34L , Mean Corpuscular Volume 84, Mean Corpuscular Hemoglobin 27, Mean Corpuscular Hemoglobin Concent 33, Red Cell Distribution Width 19.7H, Platelet Count 245, Mean Platelet Volume 10.5H, Neutrophils (%) (Auto) 85H, Lymphocytes (%) (Auto) 9L, Monocytes (%) (Auto) 7, Eosinophils (%) (Auto) 0, Basophils (%) (Auto) 0, Neutrophils # (Auto) 13.7H, Lymphocytes # (Auto) 1.4, Monocytes # (Auto) 1.1H, Eosinophils # (Auto) 0.0, Basophils # (Auto) 0.0, Sodium Level 139, Potassium Level 3.8, Chloride Level 106, Carbon Dioxide Level 23, Anion Gap 10, Blood Urea Nitrogen 23H, Creatinine 1.20, Estimat Glomerular Filtration Rate 47, BUN/ Creatinine Ratio 19, Glucose Level 140H, Calcium Level 9.0 11/22/17 05:25: Glucometer 113H Microbiology 11/20/17 Blood Culture - Preliminary, Resulted No growth 11/20/17 Urine Culture - Final, Complete Escherichia coli See Comments A/P: Assessment/Dx: Shortness of breath, respiratory distress, Moderate CAD, Previous non-ischemic Cardiomyopathy, Nausea/vomiting/diarrhea, Lactic acidosis Plan: Shortness of breath is likely due to COPD and anxiety. BNP is very mildly elevated. Therefore it is very unlikely that the patient has florid congestive heart failure. Patient is on aggressive noninvasive respiratory treatment. Respiratory alkalosis is also noted. Patient much better today. Moderate CAD with previous history of low ejection fraction. Nonischemic cardiomyopathy and was started on aggressive cardiomyopathy medications in the past. Repeat echocardiogram showed normal LV function. Significant improvement in LV function on aggressive cardiomyopathy medications. Thank you for your consultation. Please call me if you have any questions. Shaye Muniz MD, FACP, FACC, FSCAI, FHRS, CCDS Interventional Cardiology Cardiac Electrophysiology Vascular Medicine and Endovascular Interventions Focused Exam Lactate Level 11/20/17 12:05: Lactic Acid Level 6.24*H 11/20/17 13:48: Lactic Acid Level 3.59*H 11/20/17 17:58: Lactic Acid Level 1.06 Jennifer MUNIZ MD Nov 22, 2017 10:25 am
[2017-11-22] MEDS ORDERED: LEVO500T2 PO (11:18)
[2017-11-22] MEDS ORDERED: PRD10T PO (11:18)
--- NOTE | 2017-11-22 11:21 | Discharge Instructions ---
Discharge [facility] Discharge Medications New, Converted or Re-Newed RX: RX on Chart (Prednisone; Levaquin transmitted) New Medications: Levofloxacin (Levaquin) 500 Mg Tablet 500 MG PO DAILY for 5 Days, #5 TAB 0 Refills Prednisone (Prednisone) 10 Mg Tab 10 MG PO DAILY for taper as directed, #24 TAB 0 Refills 5 tabs (50mg) Day 1 4 tabs (40mg) Day 2 4 tabs (40mg) Day 3 3 tabs (30mg) Day 4 3 tabs (30mg) Day 5 2 tabs (20mg) Day 6 2 tabs (20mg) Day 7 1 tab (10Mg) Day 8 Continued Medications: Albuterol Sulfate (Ventolin Hfa) 1 Puff Puff 2 PUFF IH Q4H PRN for SHORTNESS OF BREATH, INHALER Aspirin (Aspirin EC) 81 Mg Tablet.dr 81 MG PO DAILY, TAB Fluticasone/Salmeterol (Advair 250-50 Diskus) 1 Each Blst.w.dev 1 PUFF IH BID, INHALER Furosemide (Furosemide) 20 Mg Tablet 20 MG PO DAILY, TAB Glimepiride (Glimepiride) 1 Mg Tablet 1 MG PO DAILY PRN for WHEN TAKING PREDNISONE, TAB Ipratropium/Albuterol Sulfate (Iprat-Albut 0.5-3(2.5) mg/3 ml) 3 Ml Ampul.neb 3 ML IH QID PRN for SHORTNESS OF BREATH, EACH Metoprolol Tartrate (Metoprolol Tartrate) 25 Mg Tablet 12.5 MG PO BID, TAB TAKES 1/2 (25MG) TABLET Sacubitril/Valsartan (Entresto 24 mg-26 mg Tablet) 1 Each Tablet 1 TAB PO BID, TAB Tiotropium [place] (Spiriva) 1 Inh Aerp 1 CAP IH DAILY, INHALER Patient Instructions Goal/Follow Up Appt: Follow-up with Alondra Jacob APRN 11/23/17 at 11:40am Activity & Diet Discharge Diet: ADA Diet Activity as Tolerated: Yes CONNOR JOHNSTON DO Nov 22, 2017 11:21
[2017-11-22 12:27] VITALS: BP 126/73
--- NOTE | 2017-11-22 13:24 | Discharge Summary ---
Diagnosis/Chief Complaint Date of Admission Nov 19, 2017 at 13:20 Date of Discharge Admission Diagnosis Admission Diagnosis 1.Acute COPD Exacerbation 2. UTI 3. Chronic CHF Discharge Diagnosis 1.Acute COPD Exacerbation - Continue oxygen, albuterol/ipratropium and methylprednisolone. No need for antibiotics. Low blood pressure so for now will keep pt in ICU. Consider fourth floor once hypotension resolves. 11/21 - current floor status; improved wheezing and respiratory distress. Solumedrol DCd; on Prednisone taper. 2. UTI; E. Coli -Urinalysis showed 1+ nitrites, 3+ LE, and 25-50 WBCs. Will start IV ceftriaxone for now. Urine culture still pending. 11/21 - urine culture shows E. coli - dueñas sensitive 3. Moderate CAD w/ previously history of low EF/nonischemic cardiomyopathy -Pt reports she could not afford the life vest that Dr. Auguste ordered back in September. Will consult cardio today because she has 15% EF and slightly elevated BNP at 104. 11/21 - seen in consultation by Dr. Muniz - Moderate CAD with previous history of low ejection fraction. Nonischemic cardiomyopathy and was started on aggressive cardiomyopathy medications in the past. Repeat echocardiogram showed normal LV function. Significant improvement in LV function on aggressive cardiomyopathy medications. Disp: DC home Rx for Levaquin x5 additional days to cover for respiratory and urinary bacteria. Rx for Prednisone taper. F/u with Alondra 11/23 for hospital f/u. Chief Complaint/HPI Chief Complaint/HPI 52 yo white woman presented to ED yesterday with anxiety, SOB, dry cough, and chest pain. Pt reports receiving prednisone and zofran from Issac Ward at [facility] two days for SOB. She states she takes Duoneb, Advair, and Spiriva for her COPD. Pt denies chest pain today, but complains of back pain. Discharge Summary-Simple/Stand Procedures EKG showed sinus rhythm Consultations Discharge Physical Examination Allergies: Coded Allergies: buspirone (Verified Allergy, Mild, 05/02/17) Made"legs Shaky" amitriptyline (Verified Allergy, Unknown, 05/02/17) " MAKES ME DO WEIRD THINGS LIKE WALK IN MY SLEEP AND HAVE HALLUCINATIONS." Vitals & I&Os Vital Sign - Last 12Hours Date Time Temp Pulse Resp B/P (MAP) Pulse Ox O2 Delivery O2 Flow Rate FiO2 11/22/17 12:27 98.6 89 18 126/73 (90) 100 Nasal Cannula 2.00 11/21/17 04:00 30 Intake and Output 11/22/17 00:00 Intake Total 2454 ml Balance 2454 ml General Appearance: Alert, Oriented X3, Cooperative Respiratory: Normal Air Movement, Other (minimal wheezing and no respiratory distress) Cardiovascular: Regular Rate Psych/Mental Status: Mood NL Hospital Course See final discharge diagnosis. Labs Laboratory Tests 11/19/17 14:05: Blood Gas Puncture Site RIGHT RADIAL, Blood Gas Patient Temperature 97.1, Arterial Blood pH 7.47H, Arterial Blood Partial Pressure CO2 33L, Arterial Blood Partial Pressure O2 118H, Arterial Blood HCO3 24, Arterial Blood Total CO2 24.6, Arterial Blood Oxygen Saturation 100, Arterial Blood Base Excess 0.1, Torsten Test POSITIVE, Blood Gas Ventilator Setting NO, Blood Gas Inspired Oxygen 35% BIPAP 11/19/17 14:30: Urine Color YELLOW, Urine Clarity SLIGHTLY CLOUDY, Urine pH 7, Urine Specific [place] 1.010L, Urine Protein 1+H, Urine Glucose (UA) NEGATIVE, Urine Ketones NEGATIVE, Urine Nitrite POSITIVEH, Urine Bilirubin NEGATIVE, Urine Urobilinogen NORMAL, Urine Leukocyte Esterase 3+H, Urine RBC (Auto) 2+H, Urine RBC 2-5H, Urine WBC 25-50H, Urine Squamous Epithelial Cells 2-5, Urine Crystals NONE, Urine Bacteria LARGEH, Urine Casts NONE, Urine Mucus NEGATIVE, Urine Culture Indicated YES, Urine Opiates Screen NEGATIVE, Urine Oxycodone Screen NEGATIVE, Urine Methadone Screen NEGATIVE, Urine Propoxyphene Screen NEGATIVE, Urine Barbiturates Screen NEGATIVE, Ur Tricyclic Antidepressants Screen NEGATIVE, Urine Phencyclidine Screen NEGATIVE, Urine Amphetamines Screen NEGATIVE, Urine Methamphetamines Screen NEGATIVE, Urine Benzodiazepines Screen POSITIVEH, Urine Cocaine Screen NEGATIVE, Urine Cannabinoids Screen NEGATIVE 11/19/17 16:45: Blood Gas Puncture Site LEFT RADIAL, Blood Gas Patient Temperature 97.4, Arterial Blood pH 7.46H, Arterial Blood Partial Pressure CO2 30L, Arterial Blood Partial Pressure O2 80, Arterial Blood HCO3 21L, Arterial Blood Total CO2 22.0, Arterial Blood Oxygen Saturation 97, Arterial Blood Base Excess -2.4, Torsten Test POSITIVE, Blood Gas Ventilator Setting NO, Blood Gas Inspired Oxygen 21% BIPAP 11/19/17 17:18: Glucometer 187H 11/20/17 03:17: White Blood Count 8.8, Red Blood Count 4.46, Hemoglobin 12.1, Hematocrit 36, Mean Corpuscular Volume 80, Mean Corpuscular Hemoglobin 27, Mean Corpuscular Hemoglobin Concent 34, Red Cell Distribution Width 18.4H, Platelet Count 259, Mean Platelet Volume 11.7H, Neutrophils (%) (Auto) 93H, Lymphocytes (%) (Auto) 6L, Monocytes (%) (Auto) 1, Eosinophils (%) (Auto) 0, Basophils (%) (Auto) 0, Neutrophils # (Auto) 8.2H, Lymphocytes # (Auto) 0.5L, Monocytes # (Auto) 0.1, Eosinophils # (Auto) 0.0, Basophils # (Auto) 0.0, Neutrophils % (Manual) 88, Lymphocytes % (Manual) 9, Monocytes % (Manual) 3, Eosinophils % (Manual) 0, Basophils % (Manual) 0, Band Neutrophils 0, Hypochromasia SLIGHT, Anisocytosis SLIGHT, Crenated Cell SLIGHT, Elliptocytes SLIGHT, Rouleau SLIGHT, Sodium Level 137, Potassium Level 3.1L, Chloride Level 106, Carbon Dioxide Level 18L, Anion Gap 13, Blood Urea Nitrogen 13, Creatinine 0.83, Estimat Glomerular Filtration Rate > 60, BUN/Creatinine Ratio 16, Glucose Level 205H, Calcium Level 9.6, Phosphorus Level 2.9, Magnesium Level 1.5L 11/20/17 11:15: Glucometer 208H 11/20/17 11:25: Blood Gas Puncture Site LEFT RADIAL, Blood Gas Patient Temperature 97.6, Arterial Blood pH 7.54H, Arterial Blood Partial Pressure CO2 19*L, Arterial Blood Partial Pressure O2 107H, Arterial Blood HCO3 16*L, Arterial Blood Total CO2 16.9L, Arterial Blood Oxygen Saturation 99, Arterial Blood Base Excess -5.9L , Torsten Test POSITIVE, Blood Gas Ventilator Setting NO, Blood Gas Inspired Oxygen 30% FI02 20 L 11/20/17 12:05: White Blood Count 15.8H, Red Blood Count 4.83, Hemoglobin 13.2, Hematocrit 39, Mean Corpuscular Volume 80, Mean Corpuscular Hemoglobin 27, Mean Corpuscular Hemoglobin Concent 34, Red Cell Distribution Width 18.7H, Platelet Count 316, Mean Platelet Volume 10.9H, Neutrophils (%) (Auto) 91H, Lymphocytes (%) (Auto) 6L, Monocytes (%) (Auto) 3, Eosinophils (%) (Auto) 0, Basophils (%) (Auto) 0, Neutrophils # (Auto) 14.4H, Lymphocytes # (Auto) 0.9L, Monocytes # (Auto) 0.5, Eosinophils # (Auto) 0.0, Basophils # (Auto) 0.0, Neutrophils % (Manual) 92, Lymphocytes % (Manual) 7, Monocytes % (Manual) 1, Eosinophils % (Manual) 0, Basophils % (Manual) 0, Band Neutrophils 0, Anisocytosis MODERATE, Sodium Level 139, Potassium Level 3.2L, Chloride Level 106, Carbon Dioxide Level 17L, Anion Gap 16H, Blood Urea Nitrogen 12, Creatinine 0.97, Estimat Glomerular Filtration Rate 60, BUN/Creatinine Ratio 12, Glucose Level 185H, Calcium Level 10.1, Phosphorus Level 1.8L, Magnesium Level 2.2, Lactic Acid Level 6.24*H, Corrected Calcium 10.0, Total Bilirubin 0.5, Aspartate Amino Transf (AST/SGOT) 9, Alanine Aminotransferase (ALT/SGPT) 11, Alkaline Phosphatase 59, Troponin I < 0.30, B- Type Natriuretic Peptide 140.5H, Total Protein 6.7, Albumin 4.1 11/20/17 13:48: Lactic Acid Level 3.59*H 11/20/17 16:24: Glucometer 142H 11/20/17 17:58: Lactic Acid Level 1.06 11/20/17 21:22: Glucometer 212H 11/21/17 03:18: White Blood Count 19.5H, Red Blood Count 4.19L, Hemoglobin 11.4L, Hematocrit 34L , Mean Corpuscular Volume 82, Mean Corpuscular Hemoglobin 27, Mean Corpuscular Hemoglobin Concent 33, Red Cell Distribution Width 19.6H, Platelet Count 256, Mean Platelet Volume 11.2H, Neutrophils (%) (Auto) 94H, Lymphocytes (%) (Auto) 3L, Monocytes (%) (Auto) 3, Eosinophils (%) (Auto) 0, Basophils (%) (Auto) 0, Neutrophils # (Auto) 18.3H, Lymphocytes # (Auto) 0.6L, Monocytes # (Auto) 0.6, Eosinophils # (Auto) 0.0, Basophils # (Auto) 0.0, Sodium Level 140, Potassium Level 4.0, Chloride Level 109H, Carbon Dioxide Level 20L, Anion Gap 11, Blood Urea Nitrogen 16, Creatinine 0.98, Estimat Glomerular Filtration Rate 59, BUN/ Creatinine Ratio 16, Glucose Level 180H, Calcium Level 8.9, Phosphorus Level 3.0 , Magnesium Level 2.2 11/21/17 11:54: Glucometer 157H 11/21/17 15:59: Glucometer 158H 11/21/17 21:51: Glucometer 161H 11/22/17 03:35: White Blood Count 16.2H, Red Blood Count 4.08L, Hemoglobin 11.1L, Hematocrit 34L , Mean Corpuscular Volume 84, Mean Corpuscular Hemoglobin 27, Mean Corpuscular Hemoglobin Concent 33, Red Cell Distribution Width 19.7H, Platelet Count 245, Mean Platelet Volume 10.5H, Neutrophils (%) (Auto) 85H, Lymphocytes (%) (Auto) 9L, Monocytes (%) (Auto) 7, Eosinophils (%) (Auto) 0, Basophils (%) (Auto) 0, Neutrophils # (Auto) 13.7H, Lymphocytes # (Auto) 1.4, Monocytes # (Auto) 1.1H, Eosinophils # (Auto) 0.0, Basophils # (Auto) 0.0, Sodium Level 139, Potassium Level 3.8, Chloride Level 106, Carbon Dioxide Level 23, Anion Gap 10, Blood Urea Nitrogen 23H, Creatinine 1.20, Estimat Glomerular Filtration Rate 47, BUN/ Creatinine Ratio 19, Glucose Level 140H, Calcium Level 9.0 11/22/17 05:25: Glucometer 113H 11/22/17 11:10: Glucometer 209H Microbiology 11/20/17 Blood Culture - Preliminary, Resulted No growth 11/20/17 Urine Culture - Final, Complete Escherichia coli See Comments Radiology Reviewed CXR showed COPD and no infiltrates Discussion & Recommendations Discharge [facility] Discharge Medications New, Converted or Re-Newed RX: RX on Chart (Prednisone; Levaquin transmitted) New Medications: Levofloxacin (Levaquin) 500 Mg Tablet 500 MG PO DAILY for 5 Days, #5 TAB 0 Refills Prednisone (Prednisone) 10 Mg Tab 10 MG PO DAILY for taper as directed, #24 TAB 0 Refills 5 tabs (50mg) Day 1 4 tabs (40mg) Day 2 4 tabs (40mg) Day 3 3 tabs (30mg) Day 4 3 tabs (30mg) Day 5 2 tabs (20mg) Day 6 2 tabs (20mg) Day 7 1 tab (10Mg) Day 8 Continued Medications: Albuterol Sulfate (Ventolin Hfa) 1 Puff Puff 2 PUFF IH Q4H PRN for SHORTNESS OF BREATH, INHALER Aspirin (Aspirin EC) 81 Mg Tablet.dr 81 MG PO DAILY, TAB Fluticasone/Salmeterol (Advair 250-50 Diskus) 1 Each Blst.w.dev 1 PUFF IH BID, INHALER Furosemide (Furosemide) 20 Mg Tablet 20 MG PO DAILY, TAB Glimepiride (Glimepiride) 1 Mg Tablet 1 MG PO DAILY PRN for WHEN TAKING PREDNISONE, TAB Ipratropium/Albuterol Sulfate (Iprat-Albut 0.5-3(2.5) mg/3 ml) 3 Ml Ampul.neb 3 ML IH QID PRN for SHORTNESS OF BREATH, EACH Metoprolol Tartrate (Metoprolol Tartrate) 25 Mg Tablet 12.5 MG PO BID, TAB TAKES 1/2 (25MG) TABLET Sacubitril/Valsartan (Entresto 24 mg-26 mg Tablet) 1 Each Tablet 1 TAB PO BID, TAB Tiotropium Valentine (Spiriva) 1 Inh Aerp 1 CAP IH DAILY, INHALER Patient Instructions Goal/Follow Up Appt: Follow-up with Alondra Jacob APRN 11/23/17 at 11:40am Activity & Diet Discharge Diet: ADA Diet Activity as Tolerated: Yes Discharge Instructions to patient/family Please see electronic discharge instructions given to patient. Discharge Medications Reviewed and agree with Discharge Medication list on patient's Discharge Instruction sheet Clinical Quality Measures DVT/VTE Risk/Contraindication: Risk Factor Score Per Nursin RFS Level Per Nursing on Admit: 4+=Very High CONNOR JOHNSTON DO Nov 22, 2017 13:24
[2017-11-23] MEDS ORDERED: PANTOPRAZOLE 40 MG (PROTONIX) TAB PO SCH (07:00)
--- NOTE | 2017-11-23 11:53 | Physician Query Clarification ---
PQ-Conflicting Diagnosis Admission/Discharge Admission Date: Nov 19, 2017 at 13:20 Discharge Date: Nov 22, 2017 at 13:40 The medical record reflects the following clinical scenario: History/Risk Factors: respiratory distress,wheezing Clinical Findings: COPD Treatment: SHILPA Gay's Question: Do you agree with the impression of the acute on chronic respiratory failure per Dr. Trivedi. Please document a response below. PHYSICIAN RESPONSE Do you agree w/Consulting Dx?: Yes In responding to this query, please exercise your independent professional judgment. The purpose of this communication is to more accurately reflect the complexity of your patients condition. The fact that a question is asked does not imply that any particular answer is desired or expected. Thank you for your timely response to this clarification. Requestors name: [ ] Phone # [ ] THIS PHYSICIAN QUERY FORM IS A PERMANENT PART OF THE MEDICAL RECORD INGA GUNN Nov 23, 2017 11:53 CONNOR JOHNSTON DO Nov 24, 2017 17:07
== END 2017-11-22 13:40 | disposition home or self-care (01) | DRG 189 ==
LOC: EDUNIT# 11:07 → ER 11:08 → ICU 13:20 → 4TH 11-21 13:40
PROVIDERS: ADMIT Family Medicine; ATTEND Family Medicine
DX: J96.20 Acute and chronic respiratory failure, unspecified whether with hypoxia or hypercapnia (principal); J44.1 Chronic obstructive pulmonary disease with (acute) exacerbation; N39.0 Urinary tract infection, site not specified; I42.9 Cardiomyopathy, unspecified; E87.2 Acidosis; E87.3 Alkalosis; B96.20 Unspecified Escherichia coli [E. coli] as the cause of diseases classified elsewhere; I25.10 Atherosclerotic heart disease of native coronary artery without angina pectoris; I50.9 Heart failure, unspecified; F41.9 Anxiety disorder, unspecified; E66.01 Morbid (severe) obesity due to excess calories; Z91.19 Patient's noncompliance with other medical treatment and regimen; I11.0 Hypertensive heart disease with heart failure; G43.909 Migraine, unspecified, not intractable, without status migrainosus; E11.9 Type 2 diabetes mellitus without complications; E78.5 Hyperlipidemia, unspecified; E78.1 Pure hyperglyceridemia; G47.00 Insomnia, unspecified; F31.9 Bipolar disorder, unspecified; R11.2 Nausea with vomiting, unspecified; R19.7 Diarrhea, unspecified; E87.6 Hypokalemia; E83.42 Hypomagnesemia; Z68.32 Body mass index [BMI] 32.0-32.9, adult
CPT/HCPCS: 36415; 36600; 71045; 71260; 74177; 80048; 80053; 80306; 81000; 82805; 82962; 83605; 83735; 83880; 84100; 84484; 85007; 85025; 85027; 85379; 86141; 87040; 87077; 87088; 87186; 93005; 93041; 93306; 94640; 94660; 94760; 96374; 96375

== ENCOUNTER 2017-12-06 12:06 | Emergency (ER) | payer SELFPAY ==
[~2017-12-06] VITALS: Ht 175.3 cm; Wt 89.8 kg
[2017-12-06] MEDS ORDERED: RT-ALBUTEROL SULF 2.5 MG/3 ML PRE-MIX VIAL INH STA ×2 (12:13→12:46)
[2017-12-06] MEDS ORDERED: NS IV 1000 ML 1,000 ML IV SCH (12:13)
[2017-12-06] MEDS ORDERED: RT-ALBUTEROL/IPRATROPIUM 3 ML (DUONEB) VIAL INH ONE (12:15)
--- NOTE | 2017-12-06 12:22 | ED Respiratory ---
General Stated Complaint: SOB Source: patient Exam Limitations: no limitations History of Present Illness Date Seen by Provider: Dec 06, 2017 Time Seen by Provider: 12:06 Initial Comments Patient presents to ER by private conveyance with chief complaint she's having difficulty breathing since Thursday. She's not been seen for this yet. She just finished a 5 day steroid taper on Thursday of last week, 6 days ago. She has used her DuoNeb at 7:00, 9:00 and 11:00 this morning and then just before coming in took 2 puffs on her pro-air inhaler. She's having no chest pain vomiting, fevers , chills or productive cough. She says she was just discharged from the hospital for COPD exacerbation about 2 weeks ago. She uses 3 L of oxygen by nasal cannula at home at baseline. She still smoking about half a pack of cigarettes per day but she says she's only had 2 or 3 today. She is having a little nausea and discomfort in her belly. She has not vomited yet. Allergies and Home Medications Allergies Coded Allergies: buspirone (Verified Allergy, Mild, 05/02/17) Made"legs Shaky" amitriptyline (Verified Allergy, Unknown, 05/02/17) " MAKES ME DO WEIRD THINGS LIKE WALK IN MY SLEEP AND HAVE HALLUCINATIONS." Home Medications Albuterol Sulfate 1 Puff Puff, 2 PUFF IH Q4H PRN for SHORTNESS OF BREATH, ( Reported) Aspirin 81 Mg Tablet.dr, 81 MG PO DAILY, (Reported) Fluticasone/Salmeterol 1 Each Blst.w.dev, 1 PUFF IH BID, (Reported) Furosemide 20 Mg Tablet, 20 MG PO DAILY, (Reported) Glimepiride 1 Mg Tablet, 1 MG PO DAILY PRN for WHEN TAKING PREDNISONE, (Reported ) Ipratropium/Albuterol Sulfate 3 Ml Ampul.neb, 3 ML IH QID PRN for SHORTNESS OF BREATH, (Reported) Levofloxacin 500 Mg Tablet, 500 MG PO DAILY Prescribed by: CONNOR JOHNSTON on 11/22/17 1118 Metoprolol Tartrate 25 Mg Tablet, 12.5 MG PO BID, (Reported) TAKES 1/2 (25MG) TABLET Prednisone 10 Mg Tab, 10 MG PO DAILY 5 tabs (50mg) Day 1 4 tabs (40mg) Day 2 4 tabs (40mg) Day 3 3 tabs (30mg) Day 4 3 tabs (30mg) Day 5 2 tabs (20mg) Day 6 2 tabs (20mg) Day 7 1 tab (10Mg) Day 8 Prescribed by: CONNOR JOHNSTON on 11/22/17 1118 Sacubitril/Valsartan 1 Each Tablet, 1 TAB PO BID, (Reported) Tiotropium [place] 1 Inh Aerp, 1 CAP IH DAILY, (Reported) Patient Home Medication List Home Medication List Reviewed: Yes Review of Systems Review of Systems Constitutional: No chills, No diaphoresis, No fever EENTM: No ear discharge, No ear pain Respiratory: No cough, No hemoptysis; short of breath, wheezing Cardiovascular: No chest pain, No palpitations, No syncope Gastrointestinal: No abdominal pain, No constipation, No diarrhea, No nausea, No vomiting Genitourinary: No dysuria, No frequency Musculoskeletal: No back pain, No joint pain Past Wokqiuy-Lvukre-Sjyiui Hx Patient Social History Alcohol Use: Denies Use Recreational Drug Use: No Drug of Choice: +IV METH past hx Smoking Status: Current Everyday Smoker Type Used: Cigarettes 2nd Hand Smoke Exposure: Yes Recent Foreign Travel: No Contact w/Someone Who Travel: No Recent Hopitalizations: No Immunizations Up To Date Tetanus Booster (TDap): Unknown Date of Pneumonia Vaccine: Dec 08, 2011 Date of Influenza Vaccine: Dec 31, 2016 Seasonal Allergies Seasonal Allergies: No Past Medical History Surgeries: No Respiratory: Yes (O2 AT 2-3L/NC) Sleep Apnea, COPD Currently Using CPAP: No Currently Using BIPAP: Yes Cardiac: Yes (HAD HEART CATH. 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 Sexually Transmitted Disease: No HIV/AIDS: No Genitourinary: No Gastrointestinal: Yes Ulcer Musculoskeletal: Yes (chronic shoulder and neck pain) Endocrine: Yes (DM- only while on steriods per pt) Diabetes, Non-Insulin dep HEENT: No Cancer: No Psychosocial: Yes Sleep Difficulties, Anxiety, Suicide Attempts, Bipolar, Depression Integumentary: No Blood Disorders: No Adverse Reaction/Blood Tranf: No Family Medical History Cancer 03 MOTHER, Onset:66 (LUNG ) 09 BROTHER (LUNG ) Congestive heart failure 03 FATHER Heart Disease, Cancer Physical Exam Vital Signs - First Documented 12/06/17 12:09 Temp 97.0 Pulse 86 Resp 25 B/P (MAP) 130/96 (107) Pulse Ox 98 O2 Delivery Nasal Cannula O2 Flow Rate 2.00 Capillary Refill : Height: 5'9.00" Weight: 218lbs. 12.0oz. 98.281056gd; 29.1 BMI Method:Stated General Appearance: WD/WN, moderate distress Eyes: Bilateral Eye Normal Inspection, Bilateral Eye PERRL, Bilateral Eye EOMI HEENT: PERRL/EOMI, normal ENT inspection, pharynx normal, other (oropharynx is dry) Neck: non-tender, normal inspection Respiratory: chest non-tender, respiratory distress (mild), decreased breath sounds, accessory muscle use (increased), wheezing, expiration Cardiovascular: normal peripheral pulses, regular rate, rhythm, no edema Gastrointestinal: normal bowel sounds, non tender, soft, no organomegaly; No distended, No guarding Extremities: no pedal edema, normal capillary refill Neurologic/Psychiatric: alert, oriented x 3, other (anxious) Skin: normal color, warm/dry Progress/Results/Core Measures Suspected Sepsis SIRS Temperature: Pulse: Respiratory Rate: Laboratory Tests 12/06/17 12:38: White Blood Count 8.4 Blood Pressure / Mean: Laboratory Tests 12/06/17 12:38: Creatinine 0.91, Platelet Count 253, Total Bilirubin 0.3 Results/Orders Lab Results Laboratory Tests Test 12/06/17 12:38 Range/Units White Blood Count 8.4 4.3-11.0 10^3/uL Red Blood Count 4.69 4.35-5.85 10^6/uL Hemoglobin 13.3 11.5-16.0 G/DL Hematocrit 39 35-52 % Mean Corpuscular Volume 84 80-99 FL Mean Corpuscular Hemoglobin 28 25-34 PG Mean Corpuscular Hemoglobin Concent 34 32-36 G/DL Red Cell Distribution Width 17.5 H 10.0-14.5 % Platelet Count 253 130-400 10^3/uL Mean Platelet Volume 10.2 7.4-10.4 FL Neutrophils (%) (Auto) 65 42-75 % Lymphocytes (%) (Auto) 23 12-44 % Monocytes (%) (Auto) 9 0-12 % Eosinophils (%) (Auto) 3 0-10 % Basophils (%) (Auto) 0 0-10 % Neutrophils # (Auto) 5.5 1.8-7.8 X 10^3 Lymphocytes # (Auto) 2.0 1.0-4.0 X 10^3 Monocytes # (Auto) 0.7 0.0-1.0 X 10^3 Eosinophils # (Auto) 0.2 0.0-0.3 10^3/uL Basophils # (Auto) 0.0 0.0-0.1 10^3/uL Blood Gas Puncture Site lt radial Blood Gas Patient Temperature 97 Arterial Blood pH 7.41 7.37-7.43 Arterial Blood Partial Pressure CO2 37 35-45 MMHG Arterial Blood Partial Pressure O2 123 H 79-93 MMHG Arterial Blood HCO3 23 23-27 MMOL/L Arterial Blood Total CO2 24.3 21.0-31.0 MMOL/L Arterial Blood Oxygen Saturation 100 94-100 % Arterial Blood Base Excess -1.1 -2.5-2.5 MMOL/L Torsten Test YES-POS Blood Gas Ventilator Setting NO Blood Gas Inspired Oxygen 2 Sodium Level 141 135-145 MMOL/L Potassium Level 3.9 3.6-5.0 MMOL/L Chloride Level 108 H 98-107 MMOL/L Carbon Dioxide Level 22 21-32 MMOL/L Anion Gap 11 5-14 MMOL/L Blood Urea Nitrogen 14 7-18 MG/DL Creatinine 0.91 0.60-1.30 MG/DL Estimat Glomerular Filtration Rate > 60 BUN/Creatinine Ratio 15 Glucose Level 147 H 70-105 MG/DL Calcium Level 9.7 8.5-10.1 MG/DL Corrected Calcium 9.7 8.5-10.1 MG/DL Total Bilirubin 0.3 0.1-1.0 MG/DL Aspartate Amino Transf (AST/SGOT) 19 5-34 U/L Alanine Aminotransferase (ALT/SGPT) 23 0-55 U/L Alkaline Phosphatase 85 40-136 U/L C-Reactive Protein High Sensitivity 0.49 0.00-0.50 MG/DL Total Protein 6.8 6.4-8.2 GM/DL Albumin 4.0 3.2-4.5 GM/DL My Orders Orders - ABIGAIL PASCUAL Arterial Blood Gas (12/06/17 12:13) Cbc With Automated Diff (12/06/17 12:13) Comprehensive Metabolic Panel (12/06/17 12:13) Hs C Reactive Protein (12/06/17 12:13) Albuterol Pre-Mix Nebs (Rt) (Proventil (12/06/17 12:13) Albuterol/Ipra Inhalation Soln (Duoneb I (12/06/17 12:15) Saline Lock/Iv-Start (12/06/17 12:13) Ns Iv 1000 Ml (Sodium Chloride 0.9%) (12/06/17 12:13) Svn Small Volume Nebulizer (12/06/17 12:13) Ondansetron Injection (Zofran Injectio (12/06/17 12:30) Albuterol Pre-Mix Nebs (Rt) (Proventil (12/06/17 12:46) Rt Request For Service (12/06/17 12:46) Ipratropium 0.02% Neb Solution (Atrovent (12/06/17 13:00) Arterial Blood Draw (12/06/17 12:38) Chest 1 View, Ap/Pa Only (12/06/17 13:15) Ondansetron Injection (Zofran Injectio (12/06/17 14:00) Prednisone Tablet (Deltasone Tablet) (12/06/17 14:30) Medications Given in ED Current Medications Medications Dose Ordered Sig/Vladimir Route Start Time Stop Time Status Last Admin Dose Admin Albuterol/ Ipratropium 3 ml ONCE ONCE INH 12/06/17 12:15 12/06/17 12:16 DC 12/06/17 12:26 3 ML Ondansetron HCl 4 mg ONCE ONCE IVP 12/06/17 12:30 12/06/17 12:31 DC 12/06/17 12:50 4 MG Ondansetron HCl 8 mg ONCE ONCE IVP 12/06/17 14:00 12/06/17 14:01 DC 12/06/17 14:05 8 MG Vital Signs/I&O 12/06/17 12/06/17 12/06/17 12:09 12:31 12:58 Temp 97.0 Pulse 86 Resp 25 B/P (MAP) 130/96 (107) Pulse Ox 98 94 98 O2 Delivery Nasal Cannula Nasal Cannula Nasal Cannula O2 Flow Rate 2.00 2.00 2.00 Capillary Refill : Progress Note #1: Time: 12:26 Progress Note 1 DuoNeb and 2.5 mg of albuterol, 2 view chest x-ray, basic set of labs. She was 98% on room air. As she started slipped down towards 96% when ahead and turned her on 2 L. We'll get an ABG at that rate and she is at 97% right now. Give her a liter fluids. She does look a little bit dry. We'll give her some Zofran for her nausea. She does have a little bit of injection and erythema on her right ear although no pain or tenderness or fluid effusion. Allergies versus viral. Progress Note #2: Time: 13:05 Progress Note ABG unremarkable. Organ a take her off the Vapotherm put her on some humidified air blow by do an hour-long albuterol breathing treatment and reassess her. She was off the oxygen for about 10 minutes with sats in the upper 90s. Progress Note #3: Time: 14:30 Progress Note The patient's moving air much better specimen on her right side. Still having a little bit of scant expiratory wheezing but she is improving. She is resting with saturations 97% 200. Her heart rate is up to about 110-115 after the hour- long albuterol treatment. She looks more comfortable. Her x-ray shows interval improvement and her ABG does not show retained CO2. We'll put her back on some steroids and have her follow-up this week with primary care. Diagnostic Imaging Diagonstic Imaging: Xray (2v) Plain Films/CT/US/NM/MRI: chest Comments NAME: SCOUT BURGESS [facility] REC#: [id number] PT STATUS: REG ER : 1965 PHYSICIAN: ABIGAIL PASCUAL MD ADMIT DATE: 12/06/17/ER Draft Date of Exam:12/06/17 CHEST 1 VIEW, AP/PA ONLY Portable erect AP chest at 1:35 PM. Indication: Shortness of breath. The heart is mildly enlarged but stable when compared to the prior exam of 11/21/2017. The previous study did show atelectasis/infiltrate and fluid involving the left lung base. On this exam the left lung base does seem better aerated. There is still a band of atelectasis/infiltrate in the left lower lobe adjacent to the heart border and there is blunting of the left costophrenic angle. The right lung base also seems better aerated than on the prior study. The upper lungs remain clear. The mediastinum is not widened. The osseous structures are intact. Impression: The appearance of the chest has improved since the prior exam as both lung bases do seem better aerated. There is no acute abnormality identified. Dictated on workstation # [id number] Dict: 12/06/17 1347 Trans: 12/06/17 1351 CV [id number] Interpreted by: NICHOLAS HERNANDEZ MD Electronically signed by: Reviewed: Reviewed by Me Departure Impression Primary Impression: COPD (chronic obstructive pulmonary disease) Qualified Codes: J42 - Unspecified chronic bronchitis Disposition: HOME, SELF-CARE Condition: Improved Departure-Patient Inst. Decision time for Depature: 14:31 Referrals: [facility] [place] (PCP) Primary Care Physician ALIZA CARTER (Family) Primary Care Physician WILLIAMS THOMAS DO Patient Instructions: COPD Including Emphysema (DC) Add. Discharge Instructions: supervisor cell maintenance a spacer for your pro-air. Continue to use it as prescribed. Start taking the prednisone 2 tablets daily for the next 4 days starting tomorrow morning. Tomorrow morning call your primary care doctor or your director of managed services for close follow-up this week. Scripts Inhaler, Assist Devices (E-Z Spacer) 1 Each Spacer EACH MC for Wheezing, #1 0 Refills Use as directed with your Proair. Prov: ABIGAIL PASCUAL 12/06/17 Prednisone (Prednisone) 20 Mg Tab 40 MG PO DAILY for 4 Days, #8 TAB 0 Refills Prov: ABIGAIL PASCUAL 12/06/17 Ondansetron (Ondansetron Odt) 4 Mg Tab.rapdis 4 MG PO Q6H PRN for NAUSEA/VOMITING, #8 TAB 0 Refills Prov: ABIGAIL PASCUAL 12/06/17 Copy Copies To 1: WILLIAMS THOMAS DO; CONNOR JOHNSTON TITUS J Dec 06, 2017 12:21
[2017-12-06] MEDS ORDERED: ONDANSETRON 4 MG/2 ML (SDV) Z0FRAN IVP ONE ×2 (12:30→14:00)
[2017-12-06 12:46] LABS: BASOPHILS % (AUTO) 0 % (0-10); EOSINOPHILS # (AUTO) 0.2 10^3/uL (0.0-0.3); EOSINOPHILS % (AUTO) 3 % (0-10); HEMATOCRIT 39 % (35-52); HEMOGLOBIN 13.3 G/DL (11.5-16.0); LYMPHOCYTES % (AUTO) 23 % (12-44); MEAN CORPUSCULAR HEMOGLOBIN 28 PG (25-34); MEAN CORPUSCULAR HGB CONC 34 G/DL (32-36); MEAN CORPUSCULAR VOLUME 84 FL (80-99); MEAN PLATELET VOLUME 10.2 FL (7.4-10.4); MONOCYTES # (AUTO) 0.7 X 10^3 (0.0-1.0); MONOCYTES % (AUTO) 9 % (0-12); NEUTROPHILS # (AUTO) 5.5 X 10^3 (1.8-7.8); NEUTROPHILS % (AUTO) 65 % (42-75); PLATELET COUNT 253 10^3/uL (130-400); RED BLOOD COUNT 4.69 10^6/uL (4.35-5.85); RED CELL DISTRIBUTION WIDTH 17.5 % (10.0-14.5); WHITE BLOOD COUNT 8.4 10^3/uL (4.3-11.0)
[2017-12-06 12:47] LABS: ABG BASE EXCESS -1.1 MMOL/L (-2.5-2.5); ABG OXYGEN SATURATION 100 % (94-100); ABG PCO2 37 MMHG (35-45); ABG PH 7.41 (7.37-7.43); ABG PO2 123 MMHG (79-93); ABG TCO2 24.3 MMOL/L (21.0-31.0); ALLENS TEST YES-POS
[2017-12-06 12:48] LABS: INSPIRED O2 2; PATIENT TEMP 97; VENTILATOR NO
[2017-12-06] MEDS ORDERED: RT-IPRATROPIUM (ATROVENT) 0.5MG/2.5ML AMP IH ONE (13:00)
--- OUTSIDE RECORDS SUMMARY | 2017-12-06 13:01 | XMS REPORT ---
Author Author ALIZA CARTER Organization [facility] Address [address] [place] [address] Care Team Providers Care Lever Miller Name Role Phone ALIZA CARTER Unavailable PROBLEMS Type Condition ICD9-CM Code TKV42-TC Code Onset Dates Condition Status SNOMED Code Problem Migraine without aura and without status migrainosus, not intractable G43.009 Active 785915186 Problem Chronic bronchitis, unspecified chronic bronchitis type J42 Active 43002648 Problem Other emphysema J43.8 Active 18991756 Problem Chronic obstructive pulmonary disease, unspecified COPD type J44.9 Active 52217280 Problem COPD with exacerbation J44.1 Active 852525038 Problem Diabetes E11.9 Active 767507939 Problem Methamphetamine use disorder, moderate, 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 Active 51549553 Problem Anxiety F41.9 Active 48024677 Problem Intractable cyclical vomiting with nausea G43.A1 Active 61218196 Problem Tobacco abuse Z72.0 Active 06454372 Problem Migraine G43.909 Active 30829477 Problem Examination of eyes and vision V72.0 Active 724590643 Problem 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 Active Problem Memory loss R41.3 Active 48884101 Problem Bipolar disorder, unspecified F31.9 Active 10826896 Problem TMJ (sprain of temporomandibular joint) S03.4XXA Active 35243090 Problem Bipolar disorder with depression F31.30 Active 94268264 Problem Chronic constipation K59.09 Active 517275900 Problem Generalized anxiety disorder F41.1 Active 62142446 ALLERGIES No Information ENCOUNTERS Encounter Location Date Diagnosis [facility] [address] [facility] [id number] [address] 17 Nov, 2017 COPD with exacerbation J44.1 and Urinary tract infection without hematuria, site unspecified N39.0 [facility] [address] [facility] [id number] [address] Nov, Chronic obstructive pulmonary disease, unspecified COPD type J44.9 [facility] [address] [address] Oct, [facility] [address] [address] Oct, [facility] [address] [address] Oct, [facility] [address] [address] Oct, [facility] [address] [address] Oct, Thrush B37.0 [facility] [address] [address] Sep, COPD with exacerbation J44.1 and Anxiety F41.9 [facility] [address] [address] Sep, [facility] [address] [address] 6[address] Sep, [facility] [address] [address] 3936 Sep, [facility] [address], [place] [address] Sep, Acute congestive heart failure, unspecified heart failure type I50.9 and Anxiety disorder, unspecified F41.9 [facility] [id number] [address] Sep, Heart failure, unspecified HF chronicity, unspecified heart failure type I50.9 [facility] [id number] [address] 6077 Sep, [facility] [address], [place] [address] Aug, Chronic obstructive pulmonary disease with acute exacerbation J44.1 [facility] [address] [facility] [id number], [place] [address] Aug, [facility] [address] [address] Aug, [facility] [address] [address] [address] July, [facility] [address] [facility] [id number], [place] [address] July, [facility] [address] [place] [address]22- 5547 July, Diabetes E11.9 and Chronic obstructive pulmonary disease with acute exacerbation J44.1 [facility] [address] [address] Jun, Chronic obstructive pulmonary disease with acute exacerbation J44.1 ; Diabetes E11.9 and Tobacco abuse Z72.0 [facility] [address] [address] Jun, [facility] [address] [id number], [place] [address] 17[address] Jun, [facility] [address] [address] 2606 May, [facility] [address], [place] [address] May, [facility] [address] [address] 17 May, 2017 [facility] [address] [address] [address] 16 May, 2017 [facility] [address], [place] [address] 15 May, 2017 [facility] [address] [address] May, Diarrhea, unspecified type R19.7 and Intractable cyclical vomiting with nausea G43.A1 [facility] [id number] [place] [address] 13869- 6506 May, [facility] [address] [address] 05 May, 2017 [facility] [address] [address] Apr, COPD exacerbation J44.1 ; Esophageal candidiasis B37.81 ; Other acute gastritis with hemorrhage K29.01 and Acute posthemorrhagic anemia D62 [place] [address] [address]- 6[address] Apr, Viral illness B34.9 and COPD exacerbation J44.1 [facility] [address] [address] Apr, Shortness of breath R06.02 and Pneumonia of both lower lobes due to infectious organism J18.9 [facility] [address] [address] Mar, COPD with acute exacerbation J44.1 [place] [address] [address]- [address] Mar, Chronic obstructive pulmonary disease with acute exacerbation J44.1 and Diabetes E11.9 [facility] [id number] [place] [address]83- 0091 Mar, [facility] [id number] [place] [address] 90239- 0192 Mar, [facility] [address] [address] Mar, COPD exacerbation J44.1 [facility] [address] [address]- [address] 09 Mar, 2017 [facility] [address] [address]- [address] Mar, Migraine G43.909 ; Hypokalemia E87.6 and Type 2 diabetes mellitus without complications E11.9 [place] [id number] [place] [address] 06416- 6930 Feb, [place] [id number] [place] [address] 79016- 8939 Feb, [place] [address] [address]- [address] Feb, Methamphetamine use disorder, moderate, 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 ; Major depressive disorder, recurrent, moderate F33.1 ; Anxiety disorder, unspecified F41.9 and Tobacco abuse Z72.0 [place] [id number] [place] [address]50- 4228 Jan, Major depressive disorder, recurrent, moderate F33.1 [place] [id number] [place] [address] 45090- 2125 Jan, [place] [id number] [place] [address] 28378- 0069 Jan, [place] [id number] [place] [address] 57391- 3756 Jan, Major depressive disorder, recurrent, moderate F33.1 [place] [id number] [place] [address] 49878- 9279 Jan, Major depressive disorder, recurrent, moderate F33.1 ; Anxiety disorder, unspecified F41.9 ; Methamphetamine use disorder, moderate, 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 and Tobacco abuse Z72.0 [place] [id number] [place] [address] 74826- 0745 Jan, [place] [id number] [place] [address] 27291- 6453 06 Jan, 2017 Chronic obstructive pulmonary disease with acute exacerbation J44.1 and Diabetes E11.9 [place] [address] [address]69- 8559 Jan, [facility] [address] [place] [address] 93675- 5737 Jan, [facility] [id number] [place] [address] 025275- 8972 Dec, Acute respiratory failure with hypoxia J96.01 ; Chronic bronchitis, unspecified chronic bronchitis type J42 and Tobacco use Z72.0 [facility] [id number] [place] [address] 11422- 6845 Dec, [facility] [address] [place] [address] [id number] Nov, Dental caries K02.9 and Dental examination Z01.20 [facility] [id number] [place] [address] 13974- 3222 Nov, Major depressive disorder, recurrent, moderate F33.1 ; Anxiety disorder, unspecified F41.9 and 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 [facility] [address] [place] [address] [id number] Oct, Dental examination Z01.20 [facility] [id number] [place] [address] 93883- 0177 Oct, [facility] [id number] [place] [address] 37688- 4142 Oct, Diabetes E11.9 and Thrush B37.0 [facility] [address] [place] [address] 30223- 4825 Oct, [facility] [id number] [place] [address] 20117- 9869 Oct, [facility] [id number] [place] [address] 39710- 8440 Oct, [facility] [address] [place] [address] 41491- 0132 Sep, Major depressive disorder, recurrent, moderate F33.1 ; Anxiety disorder, unspecified F41.9 and Bipolar disorder, unspecified F31.9 [facility] [address], [place] [address]- 9482 Sep, Acute exacerbation of chronic obstructive pulmonary disease (COPD) J44.1 and Migraine G43.909 [facility] [address] [place] [address] 88748- 4069 Sep, [facility] [id number] [place] [address] [id number] Sep, [facility] [id number] [place] [address] 59377- 3704 Sep, Acute exacerbation of chronic obstructive pulmonary disease (COPD) J44.1 [facility] [address] [place] [address] 29854 -1183 Sep, Acute exacerbation of chronic obstructive pulmonary disease (COPD) J44.1 [facility] [id number] [place] [address] 60285- 1709 Aug, [facility] [id number] [place] [address] 67499- 1435 Aug, Major depressive disorder, recurrent, moderate F33.1 ; Anxiety disorder, unspecified F41.9 and 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 [facility] [address] [place] [address] 11766- 0708 Aug, Wheezing R06.2 ; Non morbid obesity due to excess calories E66.09 ; Migraine without aura and without status migrainosus, not intractable G43.009 and Tobacco abuse Z72.0 [facility] [address] [place] [address] [id number] Aug, 2016 Encounter for dental examination Z01.20 [facility] [address] [place] [address] 76432- 9159 02 Aug, 2016 Major depressive disorder, recurrent, moderate F33.1 ; Anxiety disorder, unspecified F41.9 and 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 [facility] [address] [address]- 7098 July, [facility] [id number] [place] [address] 38561- 5255 July, [facility] [id number] [place] [address] 02733- 4994 July, [facility] [id number] [place] [address] 54072- 2926 July, Diabetes E11.9 [facility] [id number] [place] [address] 72809- 3663 Jun, Major depressive disorder, recurrent, moderate F33.1 [facility] [address] [place] [address] 08744- 0304 Jun, Major depressive disorder, recurrent, moderate F33.1 ; 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 ; Generalized anxiety disorder F41.1 and Bipolar disorder, unspecified F31.9 [facility] [id number] [place] [address] 77296- 2194 Jun, Diabetes E11.9 ; Migraine G43.909 ; Thrush B37.0 and Wheezing R06.2 [facility] [address] [place] [address] [id number] Jun, Dental examination Z01.20 [facility] [id number] [place] [address] 84247- 0129 Jun, [facility] [address] [place] [address] 93300- 6071 Jun, Major depressive disorder, recurrent, moderate F33.1 ; Anxiety disorder, unspecified F41.9 and 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 [facility] [address] [place] [address] 04054- 8217 Jun, [facility] [id number] [place] [address] 78113- 3246 Jun, Wheezing R06.2 [facility] [address] [place] [address] [id number] Jun, Dental caries K02.9 [place] [id number] [place] [address] 23467- 9998 Jun, Major depressive disorder, recurrent, moderate F33.1 ; Anxiety disorder, unspecified F41.9 and 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 [place] [id number] [place] [address] 93438- 9306 Jun, RLQ abdominal pain R10.31 ; Diabetes E11.9 ; Obesity, unspecified obesity severity, unspecified obesity type E66.9 ; Wheezing R06.2 and Abnormal urinalysis R82.[address] [address]- [address]7 May, [address] [address]- 3587 May, Well woman exam Z01.419 ; Breast cancer screening Z12.39 ; Cervical cancer screening Z12.4 ; Urinary frequency R35.0 ; Edema, unspecified type R60.9 and Chronic constipation K59.09 [place] [id number] [place] [address] 78296- 0080 May, Major depressive disorder, recurrent, moderate F33.1 ; Anxiety disorder, unspecified F41.9 and 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 [facility] [address] [place] [address] [id number] May, Dental examination Z01.20 [place] [address] 07969- 7142 May, [place] [id number] [place] [address] 90155- 9650 May, [place] [address] 76670- 4498 May, Chronic constipation K59.09 [place] [address], [place] [address]- 4319 Apr, [place] [id number] [place] [address] 16318- 9216 Apr, Major depressive disorder, recurrent, moderate F33.1 ; Anxiety disorder, unspecified F41.9 and 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 [place] [id number] [place] [address] 86871- 5163 Apr, [place] [id number] [place] [address] 82562- 8201 Mar, Major depressive disorder, recurrent, moderate F33.1 [place] [id number] [place] [address] 05674- 4050 Mar, Major depressive disorder, recurrent, moderate F33.1 ; Generalized anxiety disorder F41.1 and Bipolar I disorder, most recent episode depressed with anxious distress F31.30 [place] [address], [place] [address]- 8909 Mar, Diabetes E11.9 ; Non morbid obesity due to excess calories E66.09 ; Breast cancer screening Z12.39 and Encounter for immunization Z23 [place] [address] [place] [address] 44232- 4053 Mar, Major depressive disorder, recurrent, moderate F33.1 ; Anxiety disorder, unspecified F41.9 and 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 [place] [address], [place] [address]- 1806 Mar, [place] [id number] [place] [address] 15732- 9451 Feb, Major depressive disorder, recurrent, moderate F33.1 ; Anxiety disorder, unspecified F41.9 and 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 [place] [id number] [place] [address] 96862- 9858 Feb, [facility] [id number] [place] [address] 56320- 6357 Feb, [facility] [id number] [place] [address] 22524- 8049 Jan, Major depressive disorder, recurrent, moderate F33.1 ; Generalized anxiety disorder F41.1 and Bipolar disorder, current episode depressed, severe, without psychotic features F31.4 [facility] [id number] [place] [address] 13440- 6064 18 Jan, 2016 Major depressive disorder, recurrent, moderate F33.1 ; Anxiety disorder, unspecified F41.9 and 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 [place] [id number] [place] [address] 95405- 9391 16 Jan, 2016 Bronchitis J40 [place] [id number] [place] [address] 32585- 7515 Jan, [facility] [id number] [place] [address] 12589- 7521 Jan, [facility] [id number] [place] [address] 85119- 5471 Jan, Elbow injury, right, initial encounter S59.901A ; Multiple contusions T14.8 and Cervical strain, acute, initial encounter S16.1XXA [facility] [id number] [place] [address] 50118- 5720 Dec, Major depressive disorder, recurrent, moderate F33.1 ; Generalized anxiety disorder F41.1 and Bipolar disorder with depression F31.30 [facility] [id number] [place] [address] 24543- 1438 Dec, [facility] [id number] [place] [address] 39754- 5020 Dec, [facility] [id number] [place] [address] 42884- 4020 Dec, [facility] [address] [address]- 2630 Dec, [facility] [address] [place] [address] 60815- 6422 Dec, Yeast infection B37.9 [facility] [address] [place] [address] 61133- 9444 Dec, Pneumonia of both lungs due to methicillin resistant Staphylococcus aureus (MRSA), unspecified part of lung J15.212 and Benzodiazepine overdose, accidental or unintentional, subsequent encounter T42.4X1D [place] [address] [place] [address] 85439- 7461 Dec, [place] [id number] [place] [address] 40217- 3923 Dec, [place] [id number] [place] [address] 96529- 2638 Dec, Knee pain, left M25.562 and Edema, unspecified type R60.9 [place] [address] [place] [address] 86329- 5104 Dec, [place] [address] [place] [address] 82307- 4391 Dec, Anxiety disorder, unspecified F41.9 and Bipolar disorder, unspecified F31.9 [place] [address] [place] [address] 47962- 5940 Nov, Major depressive disorder, recurrent, moderate F33.1 ; Anxiety disorder, unspecified F41.9 and 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 [place] [address] [place] [address] 38719- 4109 Nov, [place] [address] [place] [address] 70437- 4425 Nov, Migraine without aura and without status migrainosus, not intractable G43.009 [place] [id number] [place] [address] 43395- 6008 Nov, Migraine G43.909 [place] [id number] [place] [address] 89670- 4712 Nov, [place] [id number] [place] [address] 02599- 6412 Nov, Major depressive disorder, recurrent, moderate F33.1 ; Anxiety disorder, unspecified F41.9 and 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 [place] [id number] [place] [address] 41301- 2687 Oct, Chronic constipation K59.09 and Obesity, unspecified obesity severity, unspecified obesity type E66.9 [place] [id number] [place] [address] 55155- 5911 Oct, Obesity, unspecified obesity severity, unspecified obesity type E66.9 ; Chronic constipation K59.09 and Anxiety disorder, unspecified F41.9 [place] [id number] [place] [address] 34255- 3804 Oct, [place] [id number] [place] [address] 46681- 8110 Sep, Diabetes E11.9 ; Edema, unspecified type R60.9 ; Varicose vein of leg I83.90 and Obesity, unspecified obesity severity, unspecified obesity type E66.9 [place] [id number] [place] [address] 18480- 2147 Sep, Edema, unspecified type R60.9 ; Diabetes E11.9 and Knee pain , left M25.562 [place] [id number] [place] [address] 96743- 4748 Sep, [place] [id number] [place] [address] 07495- 1703 Sep, [place] [id number] [place] [address] 57366- 8861 Sep, Major depressive disorder, recurrent, moderate F33.1 ; Generalized anxiety disorder F41.1 and Bipolar disorder, unspecified F31.9 [facility] [address] [place] [address] 32775- 3810 Aug, Chondromalacia of left knee M94.262 [facility] [id number] [place] [address] 86053- 5665 Aug, Major depressive disorder, recurrent, moderate F33.1 ; Anxiety disorder, unspecified F41.9 and 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 [facility] [facility] [id number] [place] [address] 86085- 3441 Aug, [facility] [id number] [place] [address] 22691- 4358 Aug, Osteoarthritis of left knee M17.9 [facility] [id number] [place] [address] 72501- 9410 Aug, [facility] [id number] [place] [address] 34105- 1645 July, Major depressive disorder, recurrent, moderate F33.1 ; Anxiety disorder, unspecified F41.9 and 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 [facility] [address] [address] 5537 July, [facility] [id number] [place] [address] 90912- 7311 July, Chronic constipation K59.09 [facility] [address] [address] 1475 Jun, [facility] [id number] [place] [address] 43490- 7178 Jun, [facility] [address] [address]- 6002 Jun, Osteoarthritis of left knee M17.9 [facility] [address] 15948- 7268 Jun, [place] [address] 87882- 0246 Jun, Generalized anxiety disorder F41.1 ; Bipolar disorder, unspecified F31.9 and Major depressive disorder, recurrent, moderate F33.1 [place] [address] 29224- 8092 Jun, Migraine G43.909 [place] [address] 07575- 8900 Jun, Left knee pain M25.562 ; Chronic constipation K59.09 ; Dry mouth R68.2 ; Yeast vaginitis B37.3 and Memory loss R41.3 [place] [address] 47561- 8752 Jun, [place] [address] 36772- 3297 May, [place] [address] 75859- 5441 May, [place] [address] 11322- 8712 May, [place] [address] 32465- 6709 May, [place] [address] 90768- 9971 May, Acute bronchitis with COPD J44.0 ; Knee pain, left M25.562 and Encounter for tobacco use cessation counseling Z71.[address] 0[address]80- 8986 May, [place] [address] 98710- 6411 Apr, Diabetes E11.9 ; TMJ (sprain of temporomandibular joint) S03.4XXA ; Tobacco abuse Z72.0 ; Migraine G43.909 and Anxiety F41.9 [facility] [id number] [place] [address] 64727- 7740 Apr, Generalized anxiety disorder F41.1 and Bipolar disorder, unspecified F31.9 [facility] [id number] [place] [address] 51209- 8816 Apr, Major depressive disorder, recurrent, moderate F33.1 ; Anxiety disorder, unspecified F41.9 and 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 [facility] [id number] [place] [address] 10514- 7836 Apr, [facility] [id number] [place] [address] 36255- 6763 Mar, [facility] [id number] [place] [address] 23922- 2240 Feb, [facility] [id number] [place] [address] 73977- 4204 Feb, Major depressive disorder, recurrent, moderate F33.1 ; Anxiety disorder, unspecified F41.9 and 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 [facility] [id number] [place] [address] 02484- 7367 Feb, [facility] [id number] [place] [address] 85521- 7865 Feb, Generalized anxiety disorder F41.1 and Bipolar disorder, unspecified F31.9 [facility] [id number] [place] [address] 67223- 5863 Jan, [facility] [id number] [place] [address] 55344- 5473 Jan, [facility] [id number] [place] [address] 64719- 9910 Jan, Bipolar disorder, unspecified F31.9 and Generalized anxiety disorder F41.1 [facility] [id number] [place] [address] 43291- 8238 14 Dec, 2014 [facility] [address] 33930- 8891 Dec, Bipolar disorder, unspecified F31.9 and Generalized anxiety disorder F41.1 [facility] [id number] [place] [address] 09270- 9438 Dec, Generalized anxiety disorder F41.1 and Major depressive disorder, recurrent, moderate F33.1 [facility] [id number] [place] [address] 20112- 6467 Oct, Headache 784.0 ; Cough 786.2 ; Vomiting and diarrhea 787.03 and Dysuria 788.1 [facility] [id number] [place] [address] 20176- 4460 Aug, [facility] [address] 76599- 6698 Aug, Headache 784.0 and Shortness of breath 786.05 [facility] [id number] [place] [address] 52648- 8632 Aug, [facility] [id number] [place] [address] 55098- 8814 Aug, Migraine 346.90 [facility] [id number] [place] [address] 89068- 9228 Jun, [facility] [id number] [place] [address] 70743- 9025 Jun, [facility] [id number] [place] [address] 85422- 1503 May, [facility] [id number] [place] [address] 12953- 4743 May, [facility] [id number] [place] [address] 57905- 0851 May, [facility] [place] [facility] [address] [id number] [place] [address]- 3443 May, [facility] [place] [facility] [address] [id number] [place] [address]- 1394 May, 2014 [facility] [place] [facility] [address] [id number] [place] [address]- 0237 May, 2014 [facility] [place] [facility] [address] [id number] [place] [address]- 8085 Apr, 2014 [facility] [place] [facility] [address] [id number] [place] [address]- 1776 Apr, 2014 [facility] [place] [facility] [address] [id number] [place] [address]- 4305 Apr, [facility] [place] [facility] [address] [facility] [id number] [place] [address]- 0025 Apr, [facility] [place] [facility] [address] [id number] [place] [address]- 3718 Apr, [facility] [place] [facility] [address] [id number] [place] [address]- 8566 Mar, [facility] [place] [facility] [address] [id number] [place] [address]- 7015 Mar, [facility] [place] [facility] [address] [facility] [id number] [place] [address]- 1224 Mar, [facility] [place] [facility] [address] [id number] [place] [address]- 7964 Mar, [facility] [place] [facility] [address] [id number] [place] [address]- 6799 Feb, [facility] [place] [facility] [address] [id number] [place] [address]- 6562 Feb, [facility] [place] [facility] [address] [id number] [place] 5089 Feb, [facility] [place] [facility] [address] [id number] [place] [address]- 4630 18 Feb, 2014 [facility] [place] [facility] [address] [id number] [place] [address]- 6244 Feb, [facility] [place] [facility] [address] [id number] [place] 1078 Feb, [facility] [place] [facility] [address] [id number] [place] [address]- 1251 Feb, [facility] [place] [facility] [address] [id number] [place] [address]- 0722 Feb, [facility] [place] [facility] [address] [id number] [place] [address]- 9575 Feb, [facility] [place] [facility] [address] [id number] [place] [address]- 1650 Feb, [facility] [place] [facility] [address] [id number] [place] [address]- 0364 Feb, [facility] [place] [facility] [address] [id number] [place] [address]- 9450 Feb, [facility] [place] [facility] [address] [id number] [place] [address]- 6667 Jan, [facility] [place] [facility] [address] [id number] [place] [address]- 6773 Jan, [facility] [place] [facility] [address] [id number] [place] [address]- 0385 Dec, [facility] [place] [facility] [address] [id number] [address]- 8632 Dec, [facility] [place] [facility] [address] [id number] [place] [address]- 1496 Dec, [facility] [place] [facility] [address] [id number] [place] [address]- 8183 Dec, [facility] [place] [facility] [address] [id number] [place] [address]- 4755 Dec, [facility] [place] [facility] [address] [id number] [place] [address]- 0238 Dec, [facility] [place] [facility] [address] [id number] [place] [address]- 3024 Sep, [facility] [place] [facility] [address] [id number] [place] [address]- 2775 Sep, [facility] [place] [facility] [address] [id number] [place] [address]- 6468 Sep, [facility] [place] [facility] [address] [id number] [place] [address]- 7937 Sep, [facility] [place] [facility] [address] [id number] [place] [address]- 6278 Sep, [facility] [place] [facility] [address] [id number] [place] [address]- 9064 Sep, [facility] [place] [facility] [address] [id number] [place] [address]- 9529 Sep, [facility] [place] [facility] [address] [id number] [place] [address]- 9181 Sep, [facility] [place] [facility] [address] [id number] [place] [address]- 2117 Sep, [facility] [place] [facility] [address] [id number] [place] [address]- 3689 Sep, [facility] [place] [facility] [address] [id number] [place] [address]- 1331 Aug, [facility] [place] [facility] [address] [id number] [place] [address]- 8961 Aug, [facility] [place] [facility] [address] [id number] [place] [address]- 1104 Aug, [facility] [place] [facility] [address] [id number] [place] [address]- 8966 Aug, [facility] [place] [facility] [address] [id number] [id number] 2762 Aug, [facility] [place] [facility] [address] [id number] [place] [address]- 8452 Aug, [facility] [place] [facility] [address] [id number] [place] [address]- 6625 Aug, [facility] [place] [facility] [address] [id number] [place] [address]- 7200 Aug, [facility] [place] [facility] [address] [id number] [place] [address]- 4165 Aug, [facility] [place] [facility] [address] [id number] [place] [address]- 1362 Aug, [facility] [place] [facility] [address] [id number] [place] [address]- 3245 Aug, [facility] [place] [facility] [address] [id number] [place] [address]- 9138 Aug, [facility] [place] [facility] [address] [id number] [place] [address]- 4051 Aug, [facility] [place] [facility] [address] [id number] [place] [address]- 0516 July, [facility] [place] [facility] [address] [id number] [place] [address]- 1451 July, [facility] [place] [facility] [address] [id number] [place] [address]- 6880 July, [facility] [place] [facility] [address] [id number] [place] [address]- 0958 July, [facility] [place] [facility] [address] [id number] [place] [address]- 6858 July, [facility] [place] [facility] [address] [id number] [place] [address]- 3770 July, [facility] [place] [facility] [address] [id number] [place] [address]- 1879 July, [facility] [place] [facility] [address] [id number] [place] [address]- 7264 23 Jun, 2013 [facility] [place] [facility] [address] [id number] [place] [address]- 3140 23 Jun, 2013 [facility] [place] [facility] [address] [id number] [place] [address]- 9206 18 Jun, 2013 [facility] [place] [facility] [address] [id number] [place] [address]- 2424 16 Jun, 2013 [facility] [place] [facility] [address] [id number] [place] [address]- 4957 16 Jun, 2013 [facility] [place] [facility] [address] [id number] [place] [address]- 6540 08 Jun, 2013 [facility] [place] [facility] [address] [id number] [place] [address]- 8685 08 Jun, 2013 [facility] [place] [facility] [address] [id number] [place] [address]- 6859 17 May, 2013 [facility] [place] [facility] [address] [id number] [place] [address]- 4745 17 May, 2013 [facility] [place] [facility] [address] [id number] [place] [address]- 5234 14 May, 2013 [facility] [place] [facility] [address] [id number] [place] [address]- 8937 14 May, 2013 [facility] [place] [facility] [address] [id number] [place] [address]- 4275 13 May, 2013 [facility] [place] [facility] [address] [id number] [place] [address]- 5407 13 May, 2013 [facility] [place] [facility] [address] [id number] [place] [address]- 6398 10 May, 2013 [facility] [place] [facility] [address] [id number] [place] [address]- 2153 10 May, 2013 [facility] [place] [facility] [address] [id number] [place] [address]- 6704 07 May, 2013 [facility] [place] [facility] [address] [id number] [place] [address]- 6391 Apr, [facility] [place] [facility] [address] [id number] [place] [address]- 0325 Apr, [facility] [place] [facility] [address] [id number] [place] [address]- 7287 Apr, [facility] [place] [facility] [address] [id number] [place] [address]- 5820 Apr, [facility] [place] [facility] [address] [id number] [place] [address]- 8284 Apr, [facility] [place] [facility] [address] [id number] [place] [address]- 1583 Apr, [facility] [place] [facility] [address] [id number] [place] [address]- 6150 Apr, [facility] [place] [facility] [address] [id number] [place] [address]- 2499 Apr, [facility] [place] [facility] [address] [id number] [place] [address]- 9339 Apr, [facility] [place] [facility] [address] [facility] [id number] [place] [address]- 8389 Apr, [facility] [place] [facility] [address] [id number], [place] [address]- 3373 Mar, [facility] [place] [facility] [address] [id number], [place] [address]- 5295 Mar, [facility] [place] [facility] [address] [id number] [place] [address]- 5814 Mar, [facility] [place] [facility] [address] [id number] [place] [address]- 7676 Mar, [facility] [place] [facility] [address] [facility] [id number] [place] [address]- 3292 Mar, [facility] [place] [facility] [address] [id number] [place] [address]- 4252 07 Mar, 2013 [facility] [address] [id number] [place] [address]- 8023 Mar, [facility] [place] [facility] [address] [id number] [place] [address]- 2729 Mar, [facility] [address] [id number] [place] [address]- 4377 Feb, [facility] [place] [facility] [address] [id number] [place] [address]- 0885 Feb, [facility] [place] [facility] [address] [id number] [place] [address]- 8797 Jan, [facility] [place] [facility] [address] [id number] [place] [address]- 1949 18 Jan, 2013 [facility] [place] [facility] [address] [id number] [place] [address]- 7346 15 Jan, 2013 [facility] [place] [facility] [address] [id number] [place] [address]- 6865 15 Jan, 2013 [facility] [place] [facility] [address] [id number] [place] [address]- 5470 Jan, [facility] [place] [facility] [address] [facility] [id number] [place] [address]- 5477 Jan, [facility] [place] [facility] [address] [id number] [place] [address]- 3629 05 Jan, 2013 [facility] [place] [facility] [address] [id number], [place] [address]- 0676 05 Jan, 2013 [facility] [place] [facility] [address] [id number] [place] [address]- 4241 13 Dec, 2012 [facility] [place] [facility] [address] [id number] [place] [address]- 3479 10 Dec, 2012 [facility] [place] [facility] [address] [id number], [place] [address]- 8408 10 Dec, 2012 [facility] [place] [facility] [address] [id number] [place] [address]- 1967 20 Nov, 2012 [facility] [place] [facility] [address] [id number] [place] [address]- 4373 Nov, [facility] [place] [facility] [address] [id number] [place] [address]- 6030 Nov, [facility] [place] [facility] [address] [id number] [place] [address]- 3686 Nov, [facility] [place] [facility] [address] [id number] [place] [address]- 6534 Nov, [facility] [place] [facility] [address] [id number] [place] [address]- 0397 Nov, [facility] [place] [facility] [address] [id number] [place] [address]- 9475 Oct, [facility] [place] [facility] [address] [id number] [place] [address]- 4613 Oct, [facility] [place] [facility] [address] [id number] [place] [address]- 0412 Sep, [facility] [place] [facility] [address] [id number] [place] [address]- 0475 Sep, [facility] [place] [facility] [address] [id number] [place] [address]- 9698 Sep, [facility] [place] [facility] [address] [id number] [place] [address]- 1966 Sep, [facility] [place] [facility] [address] [id number] [place] [address]- 6080 Sep, [facility] [place] [facility] [address] [id number] [place] [address]- 4772 Sep, [facility] [place] [facility] [address] [id number] [place] [address]- 5035 Sep, [facility] [place] [facility] [address] [id number] [place] [address]- 1398 14 Aug, 2012 [facility] [address] [id number] [place] [address]- 3610 14 Aug, 2012 [facility] [place] [facility] [address] [id number] [place] [address]- 9333 13 Aug, 2012 [facility] [place] [facility] [address] [id number] [place] [address]- 6035 12 Aug, 2012 [facility] [place] [facility] [address] [id number] [place] [address]- 0440 Aug, [facility] [place] [facility] [address] [id number] [place] [address]- 4778 Aug, [facility] [place] [facility] [address] [id number] [place] [address]- 9087 July, [facility] [place] [facility] [address] [id number] [place] [address]- 9042 July, [facility] [place] [facility] [address] [id number] [place] [address]- 1470 July, [facility] [place] [facility] [address] [id number] [place] [address]- 5475 July, [facility] [place] [facility] [address] [id number] [place] [address]- 5419 July, [facility] [place] [facility] [address] [id number] [place] [address]- 6626 July, [facility] [place] [facility] [address] [id number] [place] [address]- 5880 Jun, [facility] [place] [facility] [address] [id number] [place] [address]- 4729 Jun, [facility] [place] [facility] [address] [id number] [place] [address]- 8690 15 Jun, 2012 [facility] [place] [facility] [address] [id number] [place] [address] Jun, [facility] [place] [facility] [address] [id number] [place] [address] Jun, [facility] [address] [id number] [place] [address] Jun, [facility] [place] [facility] [address] [id number] [place] [address] Jun, [facility] [place] [facility] [address] [id number] [place] [address] May, [facility] [place] [facility] [address] [id number] [place] [address] May, [facility] [place] [facility] [address] [id number] [place] [address] 26 Apr, 2012 [facility] [place] [facility] [address] [facility] [id number] [place] [address] Apr, [facility] [place] [facility] [address] [facility] [id number] [place] [address] Apr, [facility] [place] [facility] [address] [id number] [place] [address] Apr, [facility] [place] [facility] [address] [facility] [id number] [place] [address] Apr, [facility] [place] [facility] [address] [facility] [id number] [place] [address] 08 Apr, 2012 [facility] [place] [facility] [address] [facility] [id number] [address] Apr, [facility] [place] [facility] [address] [facility] [id number] [place] [address] Apr, [facility] [place] [facility] [address] [facility] [id number] [place] [address] Apr, [facility] [place] [facility] [address] [facility] [id number] [place] [address] Apr, [facility] [place] [facility] [address] [facility] [id number], [place] [address] Apr, [facility] [address] [id number] [place] [address] Mar, [facility] [address] [id number] [place] [address] Mar, [facility] [address] [id number] [place] [address] Mar, [facility] [address] [id number] [place] [address] Mar, [facility] [address] [id number] [place] [address] Mar, [facility] [address] [id number] [place] [address] Mar, [facility] [address] [id number] [place] [address] Mar, [facility] [address] [id number] [place] [address] Mar, [facility] [address] [id number] [place] [address] Mar, [facility] [address] [id number] [place] [address] Mar, [facility] [address] [id number] [address] Mar, [facility] [address] [id number] [place] [address] Mar, [facility] [address] [id number] [place] [address] Mar, [facility] [address] [id number] [place] [address] Feb, [facility] [address] [id number] [place] [address] Feb, [facility] [place] [facility] [address] [id number] [place] [address] 18 Feb, 2012 [facility] [place] [facility] [address] [id number] [place] [address] 18 Feb, 2012 [facility] [place] [facility] [address] [id number] [place] [address] Feb, [facility] [place] [facility] [address] [id number] [place] [address] Feb, [facility] [place] [facility] [address] [id number] [place] [address] Feb, [facility] [place] [facility] [address] [id number] [place] [address]- [address] Feb, [facility] [place] [facility] [address] [id number] [place] [address] Feb, [facility] [place] [facility] [address] [id number] [place] [address] Feb, [facility] [place] [facility] [address] [id number] [place] [address] Feb, [facility] [place] [facility] [address] [id number] [place] [address] Feb, [facility] [place] [facility] [address] [id number] [place] [address] Feb, [facility] [place] [facility] [address] [id number] [place] [address] Feb, [facility] [place] [facility] [address] [id number] [place] [address] Feb, [facility] [place] [facility] [address] [id number] [place] [address] Jan, [facility] [place] [facility] [address] [id number] [place] [address]- [address] Jan, [facility] [place] [facility] [address] [id number] [place] [address]- [address] Jan, [facility] [place] [facility] [address] [id number] [place] [address]- [address] Jan, [facility] [place] [facility] [address] [id number] [place] [address]- [address] Dec, [facility] [place] [facility] [address] [id number] [place] [address]- [address] Dec, [facility] [place] [facility] [address] [id number] [place] [address] Dec, [facility] [place] [facility] [address] [id number] [place] [address]80 Dec, [facility] [place] [facility] [address] [id number] [place] [address]- [address]687 Dec, [facility] [place] [facility] [address] [id number] [place] [address] Dec, [facility] [place] [facility] [address] [id number], [place] [address] Dec, [facility] [place] [facility] [address] [id number] [place] [address] Dec, [facility] [place] [facility] [address] [id number], [place] [address] Dec, [facility] [place] [facility] [address] [id number], [place] [address] Dec, [facility] [place] [facility] [address] [id number], [place] [address] Dec, [facility] [place] [facility] [address] [id number] [place] [address] Nov, [facility] [place] [facility] [address] [id number] [address] 24 Nov, 2011 [facility] [place] [facility] [address] [id number], [place] [address] 20 Nov, 2011 [facility] [place] [facility] [address] [id number] [place] [address] 19 Sep, 2011 [facility] [place] [facility] [address] [id number] [place] [address] 2546 17 Sep, 2011 [facility] [place] [facility] [address] [id number] [place] [address] 2546 16 Sep, 2011 [facility] [place] [facility] [address] [id number] [place] [address] 2546 14 Sep, 2011 [facility] [place] [facility] [address] [id number] [place] [address] 2546 13 Sep, 2011 [facility] [place] [facility] [address] [id number] [place] [address]36 12 Sep, 2011 [facility] [place] [facility] [address] [id number] [place] [address] 2546 07 Sep, 2011 [facility] [place] [facility] [address] [id number] [place] [address]- [address] 06 Sep, 2011 [facility] [place] [facility] [address] [id number] [place] [address] 2547 06 Sep, 2011 [facility] [place] [facility] [address] [id number] [place] [address]- 4[address] 05 Sep, 2011 [facility] [place] [facility] [address] [id number] [place] [address]- 2548 29 Oct, 2011 [facility] [place] [facility] [address] [id number] [place] [address] 2546 29 Oct, 2011 [facility] [place] [facility] [address] [id number] [place] [address] 2542 28 Oct, 2011 [facility] [place] [facility] [address] [id number] [place] [address] 254 28 Oct, 2011 [facility] [place] [facility] [address] [id number] [place] [address]- 2546 23 Oct, 2011 [facility] [place] [facility] [address] [id number] [place] [address]- 1661 Oct, [facility] [place] [facility] [address] [id number] [place] [address]- [address] Oct, [facility] [place] [facility] [address] [id number] [place] [address]- [address] Oct, [facility] [place] [facility] [address] [id number] [place] [address]- 3446 Oct, [facility] [place] [facility] [address] [id number] [place] [address]- 4225 Oct, [facility] [place] [facility] [address] [id number] [place] [address]- 0749 Oct, [facility] [place] [facility] [address] [id number] [place] [address]- [address] Sep, [facility] [place] [facility] [address] [id number] [place] [address]- [address]262 Sep, [facility] [place] [facility] [address] [id number] [place] [address]- 1333 Sep, [facility] [place] [facility] [address] [id number] [place] [address] Sep, [facility] [place] [facility] [address] [id number] [place] [address]- 3584 Sep, [facility] [place] [facility] [address] [id number] [place] [address]- [address]8 Sep, [facility] [place] [facility] [address] [id number] [place] [address]- 7979 Aug, [facility] [place] [facility] [address] [id number] [place] [address]- [address] July, [facility] [place] [facility] [address] [id number] [place] [address]- [address] July, [facility] [place] [facility] [address] [id number] [place] [address]- 1391 Jun, [facility] [place] [facility] [address] [id number] [place] [address]- 2775 Jun, [facility] [place] [facility] [address] [id number] [place] [address]- 3526 11 Jun, 2011 [facility] [place] [facility] [address] [id number] [place] [address]- 8649 Jun, [facility] [place] [facility] [address] [id number] [place] [address]- 1370 Jun, [facility] [place] [facility] [address] [id number] [place] [address]- 2685 Jun, [facility] [place] [facility] [address] [id number] [place] [address]- 8733 Jun, [facility] [place] [facility] [address] [id number] [place] [address]- 9019 Jun, [facility] [place] [facility] [address] [id number] [place] [address]- 0937 Jun, [facility] [place] [facility] [address] [id number] [place] [address]- 1255 Jun, [facility] [place] [facility] [address] [id number] [place] [address]- 4369 Jun, [facility] [place] [facility] [address] [id number] [place] [address]- 5009 May, [facility] [place] [facility] [address] [id number] [place] [address]- 7612 16 May, 2011 [facility] [place] [facility] [address] [id number] [place] [address]- 5163 14 May, 2011 [facility] [place] [facility] [address] [id number] [place] [address]- 8862 06 May, 2011 [facility] [place] [facility] [address] [id number] [place] [address]- 3211 Apr, [facility] [place] [facility] [address] [id number] [place] [address]- 3234 Apr, [facility] [place] [facility] [address] [id number] [place] [address]- 6040 Apr, [facility] [address] [id number] [place] [address]- 8456 Apr, [facility] [place] [facility] [address] [id number] [place] [address]- 3586 Apr, [facility] [place] [facility] [address] [id number] [place] [address]- 1366 Apr, [facility] [place] [facility] [address] [id number] [place] [address]- 7322 Apr, [facility] [place] [facility] [address] [id number] [place] [address]- 8764 Apr, [facility] [address] [id number] [place] [address]- 8643 Mar, [facility] [address] [id number] [place] [address]- 6177 Mar, [facility] [place] [facility] [address] [id number] [place] [address]- 5680 Mar, [facility] [place] [facility] [address] [id number] [place] [address]- 1827 Mar, [facility] [place] [facility] [address] [id number] [place] [address]- 2257 17 Mar, 2011 [facility] [place] [facility] [address] [id number] [place] [address]- 8830 Mar, [facility] [place] [facility] [address] [id number] [place] [address]- 3684 Mar, [facility] [place] [facility] [address] [id number] [place] [address]- 0140 Mar, [facility] [place] [facility] [address] [id number] [place] [address]- 9645 Mar, [facility] [place] [facility] [address] [id number] [place] [address]- 8588 Mar, [facility] [place] [facility] [address] [id number] [place] [address]- 4736 Mar, [facility] [place] [facility] [address] [id number] [place] [address]- 3810 Mar, [facility] [place] [facility] [address] [id number] [place] [address]- 0057 Mar, [facility] [place] [facility] [address] [id number] [place] [address]- 6604 Mar, [facility] [place] [facility] [address] [id number] [place] [address]- 0125 Mar, [facility] [place] [facility] [address] [id number] [place] [address]- 0794 Mar, [facility] [place] [facility] [address] [id number] [place] [address]- 4057 Feb, [facility] [place] [facility] [address] [id number], [place] [address]- [address] Feb, [facility] [place] [facility] [address] [id number] [place] [address]- 0790 Feb, [facility] [place] [facility] [address] [id number] [place] [address]- 4309 Jan, [facility] [place] [facility] [address] [id number], [place] [address]- 1215 Jan, [facility] [place] [facility] [address] [id number], [place] [address]- 6225 Jan, [facility] [place] [facility] [address] [id number] [place] [address]- 7288 Dec, [facility] [place] [facility] [address] [id number], [place] [address]- 2085 Dec, [facility] [place] [facility] [address] [id number] [place] [address]- 1500 16 Nov, 2010 [facility] [place] [facility] [address] [facility] [id number] [place] [address] 2546 Oct, [facility] [address] [facility] [id number], [place] [address]- 4295 Oct, [facility] [address] [facility] [id number], [place] [address] 2546 Oct, [facility] [address] [facility] [id number], [place] [address]- 7512 Sep, [facility] [address] [facility] [id number], [place] [address]- 2542 Apr, [facility] [address] [facility] [id number][place] [address]- 8472 Feb, [facility] [address] [facility] [id number], [place] [address]- [address]276 Jan, IMMUNIZATIONS No Known Immunizations SOCIAL HISTORY Never Assessed REASON FOR VISIT Not feeling well PLAN OF CARE VITAL SIGNS MEDICATIONS No [...] [facility] 12/30/2016 Hospitalization History [facility]-last around 2006 or so. Hospitalization History for COPD x2 Mar 2017 Hospitalization History Upper GI bleed at apr 2017 Hospitalization History [facility]- COPD Exacerbation, diarrhea 05/23/2017 Hospitalization History COPD exacerbation-[facility] 06/13/17 Hospitalization History CHF 09/09/2017 Hospitalization History COPD-UTI--[facility] 11/2017
--- OUTSIDE RECORDS SUMMARY | 2017-12-06 13:02 | XMS REPORT ---
Author Author ALIZA CARTER Organization [facility] Address [address] [place] [address] Care Team Providers Care Client Representative Name Role Phone ALIZA CARTER Unavailable PROBLEMS Type Condition ICD9-CM Code OMY12-GE Code Onset Dates Condition Status SNOMED Code Problem Migraine without aura and without status migrainosus, not intractable G43.009 Active 872754625 Problem Chronic bronchitis, unspecified chronic bronchitis type J42 Active 40457331 Problem Other emphysema J43.8 Active 80699626 Problem Chronic obstructive pulmonary disease, unspecified COPD type J44.9 Active 02941711 Problem COPD with exacerbation J44.1 Active 321326613 Problem Diabetes E11.9 Active 213690386 Problem Methamphetamine use disorder, moderate, 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 Active 63491923 Problem Anxiety F41.9 Active 37096861 Problem Intractable cyclical vomiting with nausea G43.A1 Active 10704355 Problem Tobacco abuse Z72.0 Active 17742365 Problem Migraine G43.909 Active 75212262 Problem Examination of eyes and vision V72.0 Active 649915179 Problem 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 Active Problem Memory loss R41.3 Active 27191520 Problem Bipolar disorder, unspecified F31.9 Active 50070874 Problem TMJ (sprain of temporomandibular joint) S03.4XXA Active 71135169 Problem Bipolar disorder with depression F31.30 Active 89110264 Problem Chronic constipation K59.09 Active 890116325 Problem Generalized anxiety disorder F41.1 Active 97039238 ALLERGIES No Information ENCOUNTERS Encounter Location Date Diagnosis [facility] [address] [facility] [id number] [address] 17 Nov, 2017 COPD with exacerbation J44.1 and Urinary tract infection without hematuria, site unspecified N39.0 [facility] [address] [facility] [id number], [place] [address] Nov, Chronic obstructive pulmonary disease, unspecified COPD type J44.9 [facility] [address] [place] [place] [address] Oct, [facility] [address], [place] [address] Oct, [facility] [address] [place] [place] [address] 0[address] Oct, [facility] [address], [place] [address] Oct, [facility] [address] [place] [place] [address] Oct, Thrush B37.0 [facility] [address], [place] [address] Sep, COPD with exacerbation J44.1 and Anxiety F41.9 [facility] [address], [place] [address] Sep, [facility] [address], [place] [address] 8[address] Sep, [facility] [address], [place] [address] Sep, [facility] [address], [place] [address] Sep, Acute congestive heart failure, unspecified heart failure type I50.9 and Anxiety disorder, unspecified F41.9 [facility] [id number], [place] [address] Sep, Heart failure, unspecified HF chronicity, unspecified heart failure type I50.9 [facility] [address] [id number], [place] [address]26 Sep, [facility] [address], [place] [address] Aug, Chronic obstructive pulmonary disease with acute exacerbation J44.1 [facility] [address] [facility] [id number], [place] [address] Aug, [facility] [address] [address] Aug, [facility] [address] [address] July, [facility] [address] [facility] [id number], [place] [address] July, [facility] [address] [place] [address] 49048- 3142 July, Diabetes E11.9 and Chronic obstructive pulmonary disease with acute exacerbation J44.1 [facility] [address], [place] [address] Jun, Chronic obstructive pulmonary disease with acute exacerbation J44.1 ; Diabetes E11.9 and Tobacco abuse Z72.0 [facility] [address], [place] [address] Jun, [facility] [id number] [address] 98[address] Jun, [facility] [address], [place] [address] 59[address] May, [facility] [address], [place] [address] 38[address] May, [facility] [address], [place] [address] 17 May, 2017 [facility] [address] [address] 16 May, 2017 [facility] [address], [place] [address] 3985 15 May, 2017 [facility] [address], [place] [address] May, Diarrhea, unspecified type R19.7 and Intractable cyclical vomiting with nausea G43.A1 [facility] [id number] [place] [address] 77351- 3792 May, [facility] [address] [address] 05 May, 2017 [facility] [address] [address] Apr, COPD exacerbation J44.1 ; Esophageal candidiasis B37.81 ; Other acute gastritis with hemorrhage K29.01 and Acute posthemorrhagic anemia D62 [place] [address] [address]- [address]53 Apr, Viral illness B34.9 and COPD exacerbation J44.1 [facility] [address] [address] Apr, Shortness of breath R06.02 and Pneumonia of both lower lobes due to infectious organism J18.9 [facility] [address] [address]48 Mar, COPD with acute exacerbation J44.1 [place] [address] [address]- 7608 Mar, Chronic obstructive pulmonary disease with acute exacerbation J44.1 and Diabetes E11.9 [facility] [id number] [place] [address] 63470- 4802 Mar, [facility] [id number] [place] [address] 58545- 4279 Mar, [facility] [address] [address] Mar, COPD exacerbation J44.1 [facility] [address] [address]- 66[address] 09 Mar, 2017 [facility] [address] [address]- 5948 Mar, Migraine G43.909 ; Hypokalemia E87.6 and Type 2 diabetes mellitus without complications E11.9 [place] [id number] [place] [address] 51869- 1596 Feb, [place] [id number] [place] [address] 28661- 0644 Feb, [place] [address] [address] Feb, Methamphetamine use disorder, moderate, 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 ; Major depressive disorder, recurrent, moderate F33.1 ; Anxiety disorder, unspecified F41.9 and Tobacco abuse Z72.0 [place] [id number] [place] [address] 13285- 2006 Jan, Major depressive disorder, recurrent, moderate F33.1 [place] [id number] [place] [address] 51533- 1364 Jan, [place] [id number] [place] [address] 57142- 3632 Jan, [place] [id number] [place] [address] 03928- 3520 Jan, Major depressive disorder, recurrent, moderate F33.1 [place] [id number] [place] [address] 36207- 4997 Jan, Major depressive disorder, recurrent, moderate F33.1 ; Anxiety disorder, unspecified F41.9 ; Methamphetamine use disorder, moderate, 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 and Tobacco abuse Z72.0 [place] [id number] [place] [address] 93805- 7467 Jan, [place] [id number] [place] [address] 00302- 4454 06 Jan, 2017 Chronic obstructive pulmonary disease with acute exacerbation J44.1 and Diabetes E11.9 [place] [address] [address]- 4578 Jan, [facility] [id number] [place] [address] 13133- 7594 Jan, [facility] [id number] [place] [address] 391940- 9956 Dec, Acute respiratory failure with hypoxia J96.01 ; Chronic bronchitis, unspecified chronic bronchitis type J42 and Tobacco use Z72.0 [facility] [id number] [place] [address] 49745- 9036 Dec, [facility] [address] [place] [address] [id number] Nov, Dental caries K02.9 and Dental examination Z01.20 [facility] [id number] [place] [address] 98973- 0891 Nov, Major depressive disorder, recurrent, moderate F33.1 ; Anxiety disorder, unspecified F41.9 and 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 [facility] [id number] [place] [address] [id number] Oct, Dental examination Z01.20 [facility] [id number] [place] [address] 71863- 5109 Oct, [facility] [id number] [place] [address] 81045- 7871 Oct, Diabetes E11.9 and Thrush B37.0 [facility] [id number] [place] [address] 60739- 7809 Oct, [facility] [id number] [place] [address] 06349- 7533 Oct, [facility] [id number] [place] [address] 09044- 0895 Oct, [facility] [id number] [place] [address] 11534- 7416 Sep, Major depressive disorder, recurrent, moderate F33.1 ; Anxiety disorder, unspecified F41.9 and Bipolar disorder, unspecified F31.9 [facility] [address], [place] [address]- 6328 Sep, Acute exacerbation of chronic obstructive pulmonary disease (COPD) J44.1 and Migraine G43.909 [facility] [id number] [place] [address] 81090- 3316 Sep, [facility] [id number] [place] [address] [id number] Sep, [facility] [id number] [place] [address] 62322- 9015 Sep, Acute exacerbation of chronic obstructive pulmonary disease (COPD) J44.1 [facility] [id number] [place] [address] 21876 -4923 Sep, Acute exacerbation of chronic obstructive pulmonary disease (COPD) J44.1 [facility] [id number] [place] [address] 95295- 8421 Aug, [facility] [id number] [place] [address] 25674- 3694 Aug, Major depressive disorder, recurrent, moderate F33.1 ; Anxiety disorder, unspecified F41.9 and 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 [facility] [address] [place] [address] 77019- 0670 Aug, Wheezing R06.2 ; Non morbid obesity due to excess calories E66.09 ; Migraine without aura and without status migrainosus, not intractable G43.009 and Tobacco abuse Z72.0 [facility] [id number] [place] [address] [id number] 14 Aug, 2016 Encounter for dental examination Z01.20 [facility] [id number] [place] [address] 42242- 7373 02 Aug, 2016 Major depressive disorder, recurrent, moderate F33.1 ; Anxiety disorder, unspecified F41.9 and 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 [facility] [address], [place] [address]- 2786 July, [facility] [id number] [place] [address] 16644- 0316 July, [facility] [id number] [place] [address] 53397- 1866 July, [facility] [id number] [place] [address] 66944- 8857 July, Diabetes E11.9 [facility] [id number] [place] [address] 95526- 7201 Jun, Major depressive disorder, recurrent, moderate F33.1 [facility] [id number] [place] [address] 43831- 1002 Jun, Major depressive disorder, recurrent, moderate F33.1 ; 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 ; Generalized anxiety disorder F41.1 and Bipolar disorder, unspecified F31.9 [facility] [id number] [place] [address] 04867- 2587 Jun, Diabetes E11.9 ; Migraine G43.909 ; Thrush B37.0 and Wheezing R06.2 [facility] [id number] [place] [address] [id number] Jun, Dental examination Z01.20 [facility] [id number] [place] [address] 35086- 4216 Jun, [facility] [id number] [place] [address] 64200- 2320 Jun, Major depressive disorder, recurrent, moderate F33.1 ; Anxiety disorder, unspecified F41.9 and 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 [facility] [id number] [place] [address] 88475- 0943 Jun, [facility] [id number] [place] [address] 96172- 8009 Jun, Wheezing R06.2 [facility] [id number] [place] [address] [id number] Jun, Dental caries K02.9 [place] [id number] [place] [address] 82995- 1442 Jun, Major depressive disorder, recurrent, moderate F33.1 ; Anxiety disorder, unspecified F41.9 and 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 [place] [id number] [place] [address] 99314- 5242 Jun, RLQ abdominal pain R10.31 ; Diabetes E11.9 ; Obesity, unspecified obesity severity, unspecified obesity type E66.9 ; Wheezing R06.2 and Abnormal urinalysis R82.[address] [address]32- 3926 May, [address] 77178- 0789 May, Well woman exam Z01.419 ; Breast cancer screening Z12.39 ; Cervical cancer screening Z12.4 ; Urinary frequency R35.0 ; Edema, unspecified type R60.9 and Chronic constipation K59.09 [place] [id number] [place] [address] 29645- 3315 May, Major depressive disorder, recurrent, moderate F33.1 ; Anxiety disorder, unspecified F41.9 and 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 [facility] [address] [place] [address] [id number] May, Dental examination Z01.20 [place] [address] 77045- 5952 May, [place] [id number] [place] [address] 28451- 3973 May, [place] [address] [address]- 1991 May, Chronic constipation K59.09 [place] [address], [place] [address]- 8743 Apr, [place] [id number] [place] [address] 96422- 0934 Apr, Major depressive disorder, recurrent, moderate F33.1 ; Anxiety disorder, unspecified F41.9 and 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 [place] [id number] [place] [address] 36122- 9463 Apr, [place] [id number] [place] [address] 90734- 7372 Mar, Major depressive disorder, recurrent, moderate F33.1 [place] [id number] [place] [address] 57303- 4839 Mar, Major depressive disorder, recurrent, moderate F33.1 ; Generalized anxiety disorder F41.1 and Bipolar I disorder, most recent episode depressed with anxious distress F31.30 [place] [address], [place] [address]- 7020 Mar, Diabetes E11.9 ; Non morbid obesity due to excess calories E66.09 ; Breast cancer screening Z12.39 and Encounter for immunization Z23 [place] [address] [place] [address] 93311- 5780 Mar, Major depressive disorder, recurrent, moderate F33.1 ; Anxiety disorder, unspecified F41.9 and 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 [place] [address], [place] [address]- 5036 Mar, [place] [id number] [place] [address] 52593- 8423 Feb, Major depressive disorder, recurrent, moderate F33.1 ; Anxiety disorder, unspecified F41.9 and 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 [place] [id number] [place] [address] 17601- 9056 Feb, [facility] [id number] [place] [address] 04970- 1936 Feb, [facility] [id number] [place] [address] 27892- 0459 Jan, Major depressive disorder, recurrent, moderate F33.1 ; Generalized anxiety disorder F41.1 and Bipolar disorder, current episode depressed, severe, without psychotic features F31.4 [facility] [id number] [place] [address] 50157- 8613 18 Jan, 2016 Major depressive disorder, recurrent, moderate F33.1 ; Anxiety disorder, unspecified F41.9 and 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 [place] [id number] [place] [address] 23000- 6549 16 Jan, 2016 Bronchitis J40 [place] [id number] [place] [address] 82188- 8309 Jan, [facility] [id number] [place] [address] 32716- 0746 Jan, [facility] [id number] [place] [address] 15449- 8070 Jan, Elbow injury, right, initial encounter S59.901A ; Multiple contusions T14.8 and Cervical strain, acute, initial encounter S16.1XXA [facility] [id number] [place] [address] 85244- 4308 Dec, Major depressive disorder, recurrent, moderate F33.1 ; Generalized anxiety disorder F41.1 and Bipolar disorder with depression F31.30 [facility] [id number] [place] [address] 67327- 4201 Dec, [facility] [id number] [place] [address] 85341- 3798 Dec, [facility] [id number] [place] [address] 97428- 1580 Dec, [facility] [address], [place] [address]- 5594 Dec, [facility] [address] [place] [address] 71848- 9289 Dec, Yeast infection B37.9 [facility] [address] [place] [address] 38597- 8569 Dec, Pneumonia of both lungs due to methicillin resistant Staphylococcus aureus (MRSA), unspecified part of lung J15.212 and Benzodiazepine overdose, accidental or unintentional, subsequent encounter T42.4X1D [place] [address] [place] [address] 59788- 4738 Dec, [place] [id number] [place] [address] 96035- 5575 Dec, [place] [id number] [place] [address] 27985- 6773 Dec, Knee pain, left M25.562 and Edema, unspecified type R60.9 [place] [address] [place] [address] 83823- 4624 Dec, [place] [address] [place] [address] 08104- 3891 Dec, Anxiety disorder, unspecified F41.9 and Bipolar disorder, unspecified F31.9 [place] [address] [place] [address] 20764- 2191 Nov, Major depressive disorder, recurrent, moderate F33.1 ; Anxiety disorder, unspecified F41.9 and 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 [place] [address] [place] [address] 99973- 3488 Nov, [place] [address] [place] [address] 95134- 5454 Nov, Migraine without aura and without status migrainosus, not intractable G43.009 [place] [id number] [place] [address] 09976- 7392 Nov, Migraine G43.909 [place] [id number] [place] [address] 71186- 2516 Nov, [place] [id number] [place] [address] 62505- 9954 Nov, Major depressive disorder, recurrent, moderate F33.1 ; Anxiety disorder, unspecified F41.9 and 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 [place] [id number] [place] [address] 65567- 8663 Oct, Chronic constipation K59.09 and Obesity, unspecified obesity severity, unspecified obesity type E66.9 [place] [id number] [place] [address] 71445- 9030 Oct, Obesity, unspecified obesity severity, unspecified obesity type E66.9 ; Chronic constipation K59.09 and Anxiety disorder, unspecified F41.9 [place] [id number] [place] [address] 89348- 3950 Oct, [place] [id number] [place] [address] 72929- 8250 Sep, Diabetes E11.9 ; Edema, unspecified type R60.9 ; Varicose vein of leg I83.90 and Obesity, unspecified obesity severity, unspecified obesity type E66.9 [place] [id number] [place] [address] 70949- 0847 Sep, Edema, unspecified type R60.9 ; Diabetes E11.9 and Knee pain , left M25.562 [place] [id number] [place] [address] 36279- 5457 Sep, [place] [id number] [place] [address] 63615- 1244 Sep, [place] [id number] [place] [address] 35656- 3578 Sep, Major depressive disorder, recurrent, moderate F33.1 ; Generalized anxiety disorder F41.1 and Bipolar disorder, unspecified F31.9 [facility] [address] [place] [address] 73408- 0950 Aug, Chondromalacia of left knee M94.262 [facility] [id number] [place] [address] 58389- 0576 Aug, Major depressive disorder, recurrent, moderate F33.1 ; Anxiety disorder, unspecified F41.9 and 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 [facility] [address] [place] [address] 29268- 6214 Aug, [facility] [id number] [place] [address] 03845- 7693 Aug, Osteoarthritis of left knee M17.9 [facility] [id number] [place] [address] 35739- 8230 Aug, [facility] [id number] [place] [address] 73225- 5204 July, Major depressive disorder, recurrent, moderate F33.1 ; Anxiety disorder, unspecified F41.9 and 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 [facility] [address], [place] [address] July, [facility] [id number] [place] [address] 23853- 6311 July, Chronic constipation K59.09 [facility] [address], [place] [address] 79[address] Jun, [facility] [address] [id number] [place] [address] 90132- 0754 Jun, [facility] [address], [place] [address] Jun, Osteoarthritis of left knee M17.9 [facility] [address] [address]- [address] Jun, [place] [address] [address]- [address] Jun, Generalized anxiety disorder F41.1 ; Bipolar disorder, unspecified F31.9 and Major depressive disorder, recurrent, moderate F33.1 [place] [address] [address]- 3897 Jun, Migraine G43.909 [place] [address] [address]47- 3323 Jun, Left knee pain M25.562 ; Chronic constipation K59.09 ; Dry mouth R68.2 ; Yeast vaginitis B37.3 and Memory loss R41.3 [place] [address] [address]- 5595 Jun, [place] [address] [address]887- 1702 May, [place] [address] 97326- 2027 May, [place] [address] [address]56- 5330 May, [place] [address] 81625- 7696 May, [place] [address] 12434- 9980 May, Acute bronchitis with COPD J44.0 ; Knee pain, left M25.562 and Encounter for tobacco use cessation counseling Z71.[address] [address]- [address] May, [place] [address] [address]71- 1235 Apr, Diabetes E11.9 ; TMJ (sprain of temporomandibular joint) S03.4XXA ; Tobacco abuse Z72.0 ; Migraine G43.909 and Anxiety F41.9 [facility] [id number] [place] [address] 72088- 1688 Apr, Generalized anxiety disorder F41.1 and Bipolar disorder, unspecified F31.9 [facility] [id number] [place] [address] 00152- 9016 Apr, Major depressive disorder, recurrent, moderate F33.1 ; Anxiety disorder, unspecified F41.9 and 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 [facility] [id number] [place] [address] 88763- 5796 Apr, [facility] [id number] [place] [address] 32593- 4452 Mar, [facility] [id number] [place] [address] 17354- 4680 Feb, [facility] [id number] [place] [address] 47144- 5866 Feb, Major depressive disorder, recurrent, moderate F33.1 ; Anxiety disorder, unspecified F41.9 and 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 [facility] [id number] [place] [address] 31911- 9311 Feb, [facility] [id number] [place] [address] 73189- 2427 Feb, Generalized anxiety disorder F41.1 and Bipolar disorder, unspecified F31.9 [facility] [id number] [place] [address] 62968- 2759 Jan, [facility] [id number] [place] [address] 81803- 4853 Jan, [facility] [id number] [place] [address] 62697- 4467 Jan, Bipolar disorder, unspecified F31.9 and Generalized anxiety disorder F41.1 [facility] [id number] [place] [address] 61064- 8216 14 Dec, 2014 [facility] [address] 10304- 8793 Dec, Bipolar disorder, unspecified F31.9 and Generalized anxiety disorder F41.1 [facility] [id number] [place] [address] 86835- 4837 Dec, Generalized anxiety disorder F41.1 and Major depressive disorder, recurrent, moderate F33.1 [facility] [id number] [place] [address] 29928- 0214 Oct, Headache 784.0 ; Cough 786.2 ; Vomiting and diarrhea 787.03 and Dysuria 788.1 [facility] [id number] [place] [address] 74498- 5580 Aug, [facility] [address] 51328- 6449 Aug, Headache 784.0 and Shortness of breath 786.05 [facility] [id number] [place] [address] 65480- 5974 Aug, [facility] [id number] [place] [address] 62314- 6732 Aug, Migraine 346.90 [facility] [id number] [place] [address] 90324- 0926 Jun, [facility] [id number] [place] [address] 06928- 2941 Jun, [facility] [id number] [place] [address] 65456- 0918 May, [facility] [id number] [place] [address] 92218- 7051 May, [facility] [id number] [place] [address] 70336- 6469 May, [facility] [place] [facility] [address] [id number] [place] [address]- 1604 May, [facility] [place] [facility] [address] [id number] [place] [address]- 2743 May, 2014 [facility] [place] [facility] [address] [id number] [place] [address]- 0057 May, 2014 [facility] [place] [facility] [address] [id number] [place] [address]- 0732 Apr, 2014 [facility] [place] [facility] [address] [id number] [place] [address]- 4418 Apr, 2014 [facility] [place] [facility] [address] [id number] [place] [address]- 6279 Apr, [facility] [place] [facility] [address] [facility] [id number] [place] [address]- 4990 Apr, [facility] [place] [facility] [address] [id number] [place] [address]- 5627 Apr, [facility] [place] [facility] [address] [id number] [place] [address]- 8937 Mar, [facility] [place] [facility] [address] [id number] [place] [address]- 9235 Mar, [facility] [place] [facility] [address] [facility] [id number] [place] [address]- 1759 Mar, [facility] [place] [facility] [address] [id number] [place] [address]- 4192 Mar, [facility] [place] [facility] [address] [id number] [place] [address]- 9649 Feb, [facility] [place] [facility] [address] [id number] [place] [address]- 5102 Feb, [facility] [place] [facility] [address] [id number] [place] 1776 Feb, [facility] [place] [facility] [address] [id number] [place] [address]- 6191 18 Feb, 2014 [facility] [place] [facility] [address] [id number] [place] [address]- 2334 Feb, [facility] [place] [facility] [address] [id number] [place] 4674 Feb, [facility] [place] [facility] [address] [id number] [place] [address]- 1322 Feb, [facility] [place] [facility] [address] [id number] [place] [address]- 6630 Feb, [facility] [place] [facility] [address] [id number] [place] [address]- 0871 Feb, [facility] [place] [facility] [address] [id number] [place] [address]- 7921 Feb, [facility] [place] [facility] [address] [id number] [place] [address]- 8313 Feb, [facility] [place] [facility] [address] [id number] [place] [address]- 4314 Feb, [facility] [place] [facility] [address] [id number] [place] [address]- 1839 Jan, [facility] [place] [facility] [address] [id number] [place] [address]- 1694 Jan, [facility] [place] [facility] [address] [id number] [place] [address]- 7402 Dec, [facility] [place] [facility] [address] [id number] [address]- 2282 Dec, [facility] [place] [facility] [address] [id number] [place] [address]- 6086 Dec, [facility] [place] [facility] [address] [id number] [place] [address]- 9091 Dec, [facility] [place] [facility] [address] [id number] [place] [address]- 2185 Dec, [facility] [place] [facility] [address] [id number] [place] [address]- 5460 Dec, [facility] [place] [facility] [address] [id number] [place] [address]- 8339 Sep, [facility] [place] [facility] [address] [id number] [place] [address]- 1741 Sep, [facility] [place] [facility] [address] [id number] [place] [address]- 1568 Sep, [facility] [place] [facility] [address] [id number] [place] [address]- 1954 Sep, [facility] [place] [facility] [address] [id number] [place] [address]- 0230 Sep, [facility] [place] [facility] [address] [id number] [place] [address]- 8615 Sep, [facility] [place] [facility] [address] [id number] [place] [address]- 6608 Sep, [facility] [place] [facility] [address] [id number] [place] [address]- 1279 Sep, [facility] [place] [facility] [address] [id number] [place] [address]- 2839 Sep, [facility] [place] [facility] [address] [id number] [place] [address]- 0694 Sep, [facility] [place] [facility] [address] [id number] [place] [address]- 4829 Aug, [facility] [place] [facility] [address] [id number] [place] [address]- 2879 Aug, [facility] [place] [facility] [address] [id number] [place] [address]- 8803 Aug, [facility] [place] [facility] [address] [id number] [place] [address]- 6696 Aug, [facility] [place] [facility] [address] [id number] [place] 2889 Aug, [facility] [place] [facility] [address] [id number] [place] [address]- 7285 Aug, [facility] [place] [facility] [address] [id number] [place] [address]- 4134 Aug, [facility] [place] [facility] [address] [id number] [place] [address]- 9547 Aug, [facility] [place] [facility] [address] [id number] [place] [address]- 7292 Aug, [facility] [place] [facility] [address] [id number] [place] [address]- 7946 Aug, [facility] [place] [facility] [address] [id number] [place] [address]- 3387 Aug, [facility] [place] [facility] [address] [id number] [place] [address]- 0597 Aug, [facility] [place] [facility] [address] [id number] [place] [address]- 6492 Aug, [facility] [place] [facility] [address] [id number] [place] [address]- 3852 July, [facility] [place] [facility] [address] [id number] [place] [address]- 9686 July, [facility] [place] [facility] [address] [id number] [place] [address]- 4121 July, [facility] [place] [facility] [address] [id number] [place] [address]- 3120 July, [facility] [place] [facility] [address] [id number] [place] [address]- 7728 July, [facility] [place] [facility] [address] [id number] [place] [address]- 5020 July, [facility] [place] [facility] [address] [id number] [place] [address]- 5558 July, [facility] [place] [facility] [address] [id number] [place] [address]- 9338 23 Jun, 2013 [facility] [place] [facility] [address] [id number] [place] [address]- 0210 23 Jun, 2013 [facility] [place] [facility] [address] [id number] [place] [address]- 8297 18 Jun, 2013 [facility] [place] [facility] [address] [id number] [place] [address]- 7866 16 Jun, 2013 [facility] [place] [facility] [address] [id number] [place] [address]- 0866 16 Jun, 2013 [facility] [place] [facility] [address] [id number] [place] [address]- 9194 08 Jun, 2013 [facility] [place] [facility] [address] [id number] [place] [address]- 2759 08 Jun, 2013 [facility] [place] [facility] [address] [id number] [place] [address]- 6211 17 May, 2013 [facility] [place] [facility] [address] [id number] [place] [address]- 5090 17 May, 2013 [facility] [place] [facility] [address] [id number] [place] [address]- 7170 14 May, 2013 [facility] [place] [facility] [address] [id number] [place] [address]- 9599 14 May, 2013 [facility] [place] [facility] [address] [id number] [place] [address]- 6975 13 May, 2013 [facility] [place] [facility] [address] [id number] [place] [address]- 1491 13 May, 2013 [facility] [place] [facility] [address] [id number] [place] [address]- 2071 10 May, 2013 [facility] [place] [facility] [address] [id number] [place] [address]- 5979 10 May, 2013 [facility] [place] [facility] [address] [id number] [place] [address]- 0205 07 May, 2013 [facility] [place] [facility] [address] [id number] [place] [address]- 9268 Apr, [facility] [place] [facility] [address] [id number] [place] [address]- 4445 Apr, [facility] [place] [facility] [address] [id number] [place] [address]- 5258 Apr, [facility] [place] [facility] [address] [id number] [place] [address]- 9696 Apr, [facility] [place] [facility] [address] [id number] [place] [address]- 8971 Apr, [facility] [place] [facility] [address] [id number] [place] [address]- 0407 Apr, [facility] [place] [facility] [address] [id number] [place] [address]- 2801 Apr, [facility] [place] [facility] [address] [id number] [place] [address]- 1914 Apr, [facility] [place] [facility] [address] [id number] [place] [address]- 9364 Apr, [facility] [place] [facility] [address] [facility] [id number] [place] [address]- 4600 Apr, [facility] [place] [facility] [address] [id number], [place] [address]- 6571 Mar, [facility] [place] [facility] [address] [id number], [place] [address]- 4897 Mar, [facility] [place] [facility] [address] [id number] [place] [address]- 8350 Mar, [facility] [place] [facility] [address] [id number] [place] [address]- 0775 Mar, [facility] [place] [facility] [address] [facility] [id number] [place] [address]- 5711 Mar, [facility] [place] [facility] [address] [id number] [place] [address]- 5007 07 Mar, 2013 [facility] [address] [id number] [place] [address]- 6709 Mar, [facility] [place] [facility] [address] [id number] [place] [address]- 2022 Mar, [facility] [address] [id number] [place] [address]- 3048 Feb, [facility] [place] [facility] [address] [id number] [place] [address]- 6051 Feb, [facility] [place] [facility] [address] [id number] [place] [address]- 1401 Jan, [facility] [place] [facility] [address] [id number] [place] [address]- 6218 18 Jan, 2013 [facility] [place] [facility] [address] [id number] [place] [address]- 8153 15 Jan, 2013 [facility] [place] [facility] [address] [id number] [place] [address]- 0472 15 Jan, 2013 [facility] [place] [facility] [address] [id number] [place] [address]- 1170 Jan, [facility] [place] [facility] [address] [facility] [id number] [place] [address]- 9200 Jan, [facility] [place] [facility] [address] [id number] [place] [address]- 5118 05 Jan, 2013 [facility] [place] [facility] [address] [id number], [place] [address]- 5965 05 Jan, 2013 [facility] [place] [facility] [address] [id number] [place] [address]- 2412 13 Dec, 2012 [facility] [place] [facility] [address] [id number] [place] [address]- 5902 10 Dec, 2012 [facility] [place] [facility] [address] [id number], [place] [address]- 9515 10 Dec, 2012 [facility] [place] [facility] [address] [id number] [place] [address]- 3061 20 Nov, 2012 [facility] [place] [facility] [address] [id number] [place] [address]- 9473 Nov, [facility] [place] [facility] [address] [id number] [place] [address]- 9441 Nov, [facility] [place] [facility] [address] [id number] [place] [address]- 6368 Nov, [facility] [place] [facility] [address] [id number] [place] [address]- 8035 Nov, [facility] [place] [facility] [address] [id number] [place] [address]- 7578 Nov, [facility] [place] [facility] [address] [id number] [place] [address]- 8948 Oct, [facility] [place] [facility] [address] [id number] [place] [address]- 0725 Oct, [facility] [place] [facility] [address] [id number] [place] [address]- 5627 Sep, [facility] [place] [facility] [address] [id number] [place] [address]- 4385 Sep, [facility] [place] [facility] [address] [id number] [place] [address]- 5205 Sep, [facility] [place] [facility] [address] [id number] [place] [address]- 7854 Sep, [facility] [place] [facility] [address] [id number] [place] [address]- 6677 Sep, [facility] [place] [facility] [address] [id number] [place] [address]- 7034 Sep, [facility] [place] [facility] [address] [id number] [place] [address]- 4692 Sep, [facility] [place] [facility] [address] [id number] [place] [address]- 8275 14 Aug, 2012 [facility] [address] [id number] [place] [address]- 0567 14 Aug, 2012 [facility] [place] [facility] [address] [id number] [place] [address]- 6252 13 Aug, 2012 [facility] [place] [facility] [address] [id number] [place] [address]- 0400 12 Aug, 2012 [facility] [place] [facility] [address] [id number] [place] [address]- 5057 Aug, [facility] [place] [facility] [address] [id number] [place] [address]- 4694 Aug, [facility] [place] [facility] [address] [id number] [place] [address]- 7838 July, [facility] [place] [facility] [address] [id number] [place] [address]- 1997 July, [facility] [place] [facility] [address] [id number] [place] [address]- 6113 July, [facility] [place] [facility] [address] [id number] [place] [address]- 0556 July, [facility] [place] [facility] [address] [id number] [place] [address]- 7184 July, [facility] [place] [facility] [address] [id number] [place] [address]- 5672 July, [facility] [place] [facility] [address] [id number] [place] [address]- 4430 Jun, [facility] [place] [facility] [address] [id number] [place] [address]- 2382 Jun, [facility] [place] [facility] [address] [id number] [place] [address]- 8733 15 Jun, 2012 [facility] [place] [facility] [address] [id number] [place] [address]- 3927 Jun, [facility] [place] [facility] [address] [id number] [place] [address]- 6544 Jun, [facility] [address] [id number] [place] [address]- 6525 Jun, [facility] [place] [facility] [address] [id number] [place] [address]- 0144 Jun, [facility] [place] [facility] [address] [id number] [place] [address]- 0564 May, [facility] [place] [facility] [address] [id number] [place] [address] May, [facility] [place] [facility] [address] [id number] [place] [address] 26 Apr, 2012 [facility] [place] [facility] [address] [facility] [id number] [place] [address] Apr, [facility] [place] [facility] [address] [facility] [id number] [place] [address] Apr, [facility] [place] [facility] [address] [id number] [place] [address] Apr, [facility] [place] [facility] [address] [facility] [id number] [place] [address] Apr, [facility] [place] [facility] [address] [facility] [id number] [place] [address] 08 Apr, 2012 [facility] [place] [facility] [address] [facility] [id number], [place] [address] Apr, [facility] [place] [facility] [address] [facility] [id number] [place] [address] Apr, [facility] [place] [facility] [address] [facility] [id number] [place] [address] Apr, [facility] [place] [facility] [address] [facility] [id number] [place] [address] Apr, [facility] [place] [facility] [address] [facility] [id number], [place] [address] Apr, [facility] [address] [id number] [place] [address] Mar, [facility] [address] [id number] [place] [address] Mar, [facility] [address] [id number] [place] [address] Mar, [facility] [address] [id number] [place] [address] Mar, [facility] [address] [id number] [place] [address] Mar, [facility] [address] [id number] [place] [address] Mar, [facility] [address] [id number] [place] [address] Mar, [facility] [address] [id number] [place] [address] Mar, [facility] [address] [id number] [place] [address] Mar, [facility] [address] [id number] [place] [address] Mar, [facility] [address] [id number], [place] [address] Mar, [facility] [address] [id number] [place] [address] Mar, [facility] [address] [id number] [place] [address] Mar, [facility] [address] [id number] [place] [address] Feb, [facility] [address] [id number] [place] [address]73 Feb, [facility] [place] [facility] [address] [id number] [place] [address] 18 Feb, 2012 [facility] [place] [facility] [address] [id number] [place] [address] 18 Feb, 2012 [facility] [place] [facility] [address] [id number] [place] [address] Feb, [facility] [place] [facility] [address] [id number] [place] [address] Feb, [facility] [place] [facility] [address] [id number] [place] [address] Feb, [facility] [place] [facility] [address] [id number] [place] [address] Feb, [facility] [place] [facility] [address] [id number] [place] [address] Feb, [facility] [place] [facility] [address] [id number] [place] [address] Feb, [facility] [place] [facility] [address] [id number] [place] [address] Feb, [facility] [place] [facility] [address] [id number] [place] [address] Feb, [facility] [place] [facility] [address] [id number] [place] [address] Feb, [facility] [place] [facility] [address] [id number] [place] [address] Feb, [facility] [place] [facility] [address] [id number] [place] [address] Feb, [facility] [place] [facility] [address] [id number] [place] [address] Jan, [facility] [place] [facility] [address] [id number] [place] [address] Jan, [facility] [place] [facility] [address] [id number] [place] [address] Jan, [facility] [place] [facility] [address] [id number] [place] [address] Jan, [facility] [place] [facility] [address] [id number] [place] [address] Dec, [facility] [place] [facility] [address] [id number] [place] [address]- [address] Dec, [facility] [place] [facility] [address] [id number] [place] [address] Dec, [facility] [place] [facility] [address] [id number] [place] [address] Dec, [facility] [place] [facility] [address] [id number] [place] [address] Dec, [facility] [place] [facility] [address] [id number] [place] [address]- [address] Dec, [facility] [place] [facility] [address] [id number], [place] [address] Dec, [facility] [place] [facility] [address] [id number] [place] [address] Dec, [facility] [place] [facility] [address] [id number], [place] [address] Dec, [facility] [place] [facility] [address] [id number], [place] [address] Dec, [facility] [place] [facility] [address] [id number], [place] [address] Dec, [facility] [place] [facility] [address] [id number] [place] [address] Nov, [facility] [place] [facility] [address] [id number] [address] 24 Nov, 2011 [facility] [place] [facility] [address] [id number], [place] [address] 20 Nov, 2011 [facility] [place] [facility] [address] [id number] [place] [address] 19 Sep, 2011 [facility] [place] [facility] [address] [id number] [place] [address]46 17 Sep, 2011 [facility] [place] [facility] [address] [id number] [place] [address] 2546 16 Sep, 2011 [facility] [place] [facility] [address] [id number] [place] [address] 2546 14 Sep, 2011 [facility] [place] [facility] [address] [id number] [place] [address] 2546 13 Sep, 2011 [facility] [place] [facility] [address] [id number] [place] [address] 12 Sep, 2011 [facility] [place] [facility] [address] [id number] [place] [address] 2546 07 Sep, 2011 [facility] [place] [facility] [address] [id number] [place] [address] 06 Sep, 2011 [facility] [place] [facility] [address] [id number] [place] [address] 2540 06 Sep, 2011 [facility] [place] [facility] [address] [id number] [place] [address] 05 Sep, 2011 [facility] [place] [facility] [address] [id number] [place] [address] 29 Oct, 2011 [facility] [place] [facility] [address] [id number] [place] [address] 2546 29 Oct, 2011 [facility] [place] [facility] [address] [id number] [place] [address] 2540 28 Oct, 2011 [facility] [place] [facility] [address] [id number] [place] [address] 2542 28 Oct, 2011 [facility] [place] [facility] [address] [id number] [place] [address] 23 Oct, 2011 [facility] [place] [facility] [address] [id number] [place] [address] Oct, [facility] [place] [facility] [address] [id number] [place] [address] Oct, [facility] [place] [facility] [address] [id number] [place] [address] Oct, [facility] [place] [facility] [address] [id number] [place] [address] Oct, [facility] [place] [facility] [address] [id number] [place] [address] Oct, [facility] [place] [facility] [address] [id number] [place] [address] Oct, [facility] [place] [facility] [address] [id number] [place] [address] Sep, [facility] [place] [facility] [address] [id number] [place] [address] Sep, [facility] [place] [facility] [address] [id number] [place] [address] 8469 Sep, [facility] [place] [facility] [address] [id number] [place] [address] Sep, [facility] [place] [facility] [address] [id number] [place] [address] Sep, [facility] [place] [facility] [address] [id number] [place] [address] Sep, [facility] [place] [facility] [address] [id number] [place] [address] Aug, [facility] [place] [facility] [address] [id number] [place] [address] July, [facility] [place] [facility] [address] [id number] [place] [address] July, [facility] [place] [facility] [address] [id number] [place] [address] Jun, [facility] [place] [facility] [address] [id number] [place] [address] Jun, [facility] [place] [facility] [address] [id number] [place] [address]99 11 Jun, 2011 [facility] [place] [facility] [address] [id number] [place] [address] Jun, [facility] [place] [facility] [address] [id number] [place] [address] Jun, [facility] [place] [facility] [address] [id number] [place] [address] Jun, [facility] [place] [facility] [address] [id number] [place] [address] Jun, [facility] [place] [facility] [address] [id number] [place] [address] Jun, [facility] [place] [facility] [address] [id number] [place] [address] Jun, [facility] [place] [facility] [address] [id number] [place] [address]- [address] Jun, [facility] [place] [facility] [address] [id number] [place] [address] Jun, [facility] [place] [facility] [address] [id number] [place] [address] May, [facility] [place] [facility] [address] [id number] [place] [address] 1972 16 May, 2011 [facility] [place] [facility] [address] [id number] [place] [address] 14 May, 2011 [facility] [place] [facility] [address] [id number] [place] [address] 06 May, 2011 [facility] [place] [facility] [address] [id number] [place] [address] Apr, [facility] [place] [facility] [address] [id number] [place] [address] Apr, [facility] [place] [facility] [address] [id number] [place] [address] Apr, [facility] [address] [id number] [place] [address] Apr, [facility] [place] [facility] [address] [id number] [place] [address] Apr, [facility] [place] [facility] [address] [id number] [place] [address] Apr, [facility] [place] [facility] [address] [id number] [place] [address]- 9510 Apr, [facility] [place] [facility] [address] [id number] [place] [address] Apr, [facility] [address] [id number] [place] [address] Mar, [facility] [address] [id number] [place] [address] Mar, [facility] [place] [facility] [address] [id number] [place] [address] Mar, [facility] [place] [facility] [address] [id number] [place] [address] Mar, [facility] [place] [facility] [address] [id number] [place] [address] 17 Mar, 2011 [facility] [place] [facility] [address] [id number] [place] [address]- [address] Mar, [facility] [place] [facility] [address] [id number] [place] [address]329 Mar, [facility] [place] [facility] [address] [id number] [place] [address]- [address] Mar, [facility] [place] [facility] [address] [id number] [place] [address]- [address] Mar, [facility] [place] [facility] [address] [id number] [place] [address] Mar, [facility] [place] [facility] [address] [id number] [place] [address]- [address] Mar, [facility] [place] [facility] [address] [id number] [place] [address]- 2430 Mar, [facility] [place] [facility] [address] [id number] [place] [address]- 6669 Mar, [facility] [place] [facility] [address] [id number] [place] [address]- 05[address] Mar, [facility] [place] [facility] [address] [id number] [place] [address]- [address]407 Mar, [facility] [place] [facility] [address] [id number] [place] [address]- 2459 Mar, [facility] [place] [facility] [address] [id number] [place] [address]- 8353 Feb, [facility] [place] [facility] [address] [id number], [place] [address] Feb, [facility] [place] [facility] [address] [id number] [place] [address]- 1744 Feb, [facility] [place] [facility] [address] [id number] [place] [address]- 5745 Jan, [facility] [place] [facility] [address] [id number], [place] [address] Jan, [facility] [place] [facility] [address] [id number], [place] [address] Jan, [facility] [place] [facility] [address] [id number] [place] [address]- 7535 Dec, [facility] [place] [facility] [address] [id number], [place] [address]- 1004 Dec, [facility] [place] [facility] [address] [id number] [place] [address]- 8464 16 Nov, 2010 [facility] [place] [facility] [address] [facility] [id number] [place] [address]46 Oct, [facility] [address] [facility] [id number], [place] [address] Oct, [facility] [address] [facility] [id number], [place] [address]- [address] Oct, [facility] [address] [facility] [id number], [place] [address]- [address] Sep, [facility] [address] [facility] [id number], [place] [address]- [address] Apr, [facility] [address] [facility] [id number], [place] [address]- [address] Feb, [facility] [address] [facility] [id number], [place] [address]- [address] Jan, IMMUNIZATIONS No Known Immunizations SOCIAL HISTORY [...] 2/2 Benzos OD, pneumonia MRSA, MAYRA, Hypokalemia-- [facility] 12/20/2015 Hospitalization History COPD exacerbation, Asthma-[facility] 09/21/16 Hospitalization History COPD-[facility] 12/30/2016 Hospitalization History OS and dagoberto for inpatient-last around 2006 or so. Hospitalization History for COPD x2 Mar 2017 Hospitalization History Upper GI bleed at apr 2017 Hospitalization History [facility]- COPD Exacerbation, diarrhea 05/23/2017 Hospitalization History COPD exacerbation-[facility] 06/13/17 Hospitalization History CHF 09/09/2017 Hospitalization History COPD-UTI--[facility] 11/2017
--- OUTSIDE RECORDS SUMMARY | 2017-12-06 13:03 | XMS REPORT ---
Author Author ALIZA CARTER Organization [facility] Address [address] [place] [address] Care Team Providers Care [employer] Name Role Phone ALIZA CARTER Unavailable PROBLEMS Type Condition ICD9-CM Code NKZ08-SH Code Onset Dates Condition Status SNOMED Code Problem Migraine without aura and without status migrainosus, not intractable G43.009 Active 149997877 Problem Chronic bronchitis, unspecified chronic bronchitis type J42 Active 17563311 Problem Other emphysema J43.8 Active 60080162 Problem Chronic obstructive pulmonary disease, unspecified COPD type J44.9 Active 57623874 Problem COPD with exacerbation J44.1 Active 885766312 Problem Diabetes E11.9 Active 431310055 Problem Methamphetamine use disorder, moderate, 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 Active 31532880 Problem Anxiety F41.9 Active 49274023 Problem Intractable cyclical vomiting with nausea G43.A1 Active 06426071 Problem Tobacco abuse Z72.0 Active 44670710 Problem Migraine G43.909 Active 22841518 Problem Examination of eyes and vision V72.0 Active 568911397 Problem 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 Active Problem Memory loss R41.3 Active 77953302 Problem Bipolar disorder, unspecified F31.9 Active 90523494 Problem TMJ (sprain of temporomandibular joint) S03.4XXA Active 16955759 Problem Bipolar disorder with depression F31.30 Active 48435885 Problem Chronic constipation K59.09 Active 158574282 Problem Generalized anxiety disorder F41.1 Active 95464930 ALLERGIES No Information ENCOUNTERS Encounter Location Date Diagnosis [facility] [address] [facility] [id number] [address] 17 Nov, 2017 COPD with exacerbation J44.1 and Urinary tract infection without hematuria, site unspecified N39.0 [facility] [address] [facility] [id number] [address] Nov, Chronic obstructive pulmonary disease, unspecified COPD type J44.9 [facility] [address] [address] Oct, [facility] [address], [place] [address] Oct, [facility] [address] [place] [address] Oct, [facility] [address], [place] [address] Oct, [facility] [address] [address] Oct, Thrush B37.0 [facility] [address], [place] [address] Sep, COPD with exacerbation J44.1 and Anxiety F41.9 [facility] [address], [place] [address] Sep, [facility] [address], [place] [address] 8030 Sep, [facility] [address], [place] [address] 3[address] Sep, [facility] [address], [place] [address] Sep, Acute congestive heart failure, unspecified heart failure type I50.9 and Anxiety disorder, unspecified F41.9 [facility] [id number] [address] Sep, Heart failure, unspecified HF chronicity, unspecified heart failure type I50.9 [facility] [id number], [place] [address] Sep, [facility] [address], [place] [address] Aug, Chronic obstructive pulmonary disease with acute exacerbation J44.1 [facility] [address] [facility] [id number], [place] [address] Aug, [facility] [address] [address] Aug, [facility] [address] July, [facility] [address] [facility] [id number], [place] [address] July, [facility] [id number] [place] [address]73- 3565 July, Diabetes E11.9 and Chronic obstructive pulmonary disease with acute exacerbation J44.1 [facility] [address], [place] [address] 1326 Jun, Chronic obstructive pulmonary disease with acute exacerbation J44.1 ; Diabetes E11.9 and Tobacco abuse Z72.0 [facility] [address], [place] [address] Jun, [facility] [id number] [address] Jun, [facility] [address], [place] [address] 9[address] May, [facility] [address], [place] [address] May, [facility] [address], [place] [address] 17 May, 2017 [facility] [address] [address] 16 May, 2017 [facility] [address], [place] [address] 15 May, 2017 [facility] [address], [place] [address] May, Diarrhea, unspecified type R19.7 and Intractable cyclical vomiting with nausea G43.A1 [facility] [id number] [place] [address]- 6422 May, [facility] [address] [address] 05 May, 2017 [facility] [address] [address] Apr, COPD exacerbation J44.1 ; Esophageal candidiasis B37.81 ; Other acute gastritis with hemorrhage K29.01 and Acute posthemorrhagic anemia D62 [place] [address] [address] Apr, Viral illness B34.9 and COPD exacerbation J44.1 [facility] [address] [address] Apr, Shortness of breath R06.02 and Pneumonia of both lower lobes due to infectious organism J18.9 [facility] [address] [address] Mar, COPD with acute exacerbation J44.1 [place] [address] [address]- [address]706 Mar, Chronic obstructive pulmonary disease with acute exacerbation J44.1 and Diabetes E11.9 [facility] [id number] [place] [address] 57627- 8520 Mar, [facility] [id number] [place] [address] 72642- 9059 Mar, [facility] [address] [address] Mar, COPD exacerbation J44.1 [facility] [address] [address]- [address] 09 Mar, 2017 [facility] [address] [address] Mar, Migraine G43.909 ; Hypokalemia E87.6 and Type 2 diabetes mellitus without complications E11.9 [place] [id number] [place] [address] 67435- 8177 Feb, [place] [id number] [place] [address] 74484- 0336 Feb, [place] [address] [address] Feb, Methamphetamine use disorder, moderate, 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 ; Major depressive disorder, recurrent, moderate F33.1 ; Anxiety disorder, unspecified F41.9 and Tobacco abuse Z72.0 [place] [id number] [place] [address] 18882- 5663 Jan, Major depressive disorder, recurrent, moderate F33.1 [place] [id number] [place] [address] 44627- 7131 Jan, [place] [id number] [place] [address] 99486- 5272 Jan, [place] [id number] [place] [address] 58097- 4874 Jan, Major depressive disorder, recurrent, moderate F33.1 [place] [id number] [place] [address] 49728- 2382 Jan, Major depressive disorder, recurrent, moderate F33.1 ; Anxiety disorder, unspecified F41.9 ; Methamphetamine use disorder, moderate, 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 and Tobacco abuse Z72.0 [place] [id number] [place] [address] 59236- 1819 Jan, [place] [id number] [place] [address] 40009- 1515 06 Jan, 2017 Chronic obstructive pulmonary disease with acute exacerbation J44.1 and Diabetes E11.9 [place] [address] [address]- 6081 Jan, [facility] [id number] [place] [address] 04440- 0321 Jan, [facility] [id number] [place] [address] 813236- 1154 Dec, Acute respiratory failure with hypoxia J96.01 ; Chronic bronchitis, unspecified chronic bronchitis type J42 and Tobacco use Z72.0 [facility] [id number] [place] [address] 61471- 8482 Dec, [facility] [id number] [place] [address] [id number] Nov, Dental caries K02.9 and Dental examination Z01.20 [facility] [id number] [place] [address] 38601- 4112 Nov, Major depressive disorder, recurrent, moderate F33.1 ; Anxiety disorder, unspecified F41.9 and 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 [facility] [id number] [place] [address] [id number] Oct, Dental examination Z01.20 [facility] [id number] [place] [address] 95419- 6808 Oct, [facility] [id number] [place] [address] 50602- 7046 Oct, Diabetes E11.9 and Thrush B37.0 [facility] [id number] [place] [address] 66845- 0058 Oct, [facility] [id number] [place] [address] 80493- 2363 Oct, [facility] [id number] [place] [address] 19365- 3305 Oct, [facility] [id number] [place] [address] 59754- 1749 Sep, Major depressive disorder, recurrent, moderate F33.1 ; Anxiety disorder, unspecified F41.9 and Bipolar disorder, unspecified F31.9 [facility] [address], [place] [address]- 8309 Sep, Acute exacerbation of chronic obstructive pulmonary disease (COPD) J44.1 and Migraine G43.909 [facility] [id number] [place] [address] 16811- 7242 Sep, [facility] [id number] [place] [address] [id number] Sep, [facility] [id number] [place] [address] 92404- 6038 Sep, Acute exacerbation of chronic obstructive pulmonary disease (COPD) J44.1 [facility] [id number] [place] [address] 33336 -2739 Sep, Acute exacerbation of chronic obstructive pulmonary disease (COPD) J44.1 [facility] [id number] [place] [address] 48106- 4883 Aug, [facility] [id number] [place] [address] 12497- 6554 Aug, Major depressive disorder, recurrent, moderate F33.1 ; Anxiety disorder, unspecified F41.9 and 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 [facility] [id number] [place] [address] 56482- 5009 Aug, Wheezing R06.2 ; Non morbid obesity due to excess calories E66.09 ; Migraine without aura and without status migrainosus, not intractable G43.009 and Tobacco abuse Z72.0 [facility] [id number] [place] [address] [id number] [phone] Aug, 2016 Encounter for dental examination Z01.20 [facility] [id number] [place] [address] 75272- 8651 02 Aug, 2016 Major depressive disorder, recurrent, moderate F33.1 ; Anxiety disorder, unspecified F41.9 and 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 [facility] [address], [place] [address]- 7963 July, [facility] [id number] [place] [address] 51620- 0670 July, [facility] [id number] [place] [address] 06405- 6987 July, [facility] [id number] [place] [address] 57964- 8671 July, Diabetes E11.9 [facility] [id number] [place] [address] 01456- 2002 Jun, Major depressive disorder, recurrent, moderate F33.1 [facility] [id number] [place] [address] 55980- 1540 Jun, Major depressive disorder, recurrent, moderate F33.1 ; 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 ; Generalized anxiety disorder F41.1 and Bipolar disorder, unspecified F31.9 [facility] [id number] [place] [address] 84501- 7366 Jun, Diabetes E11.9 ; Migraine G43.909 ; Thrush B37.0 and Wheezing R06.2 [facility] [address] [place] [address] [id number] Jun, Dental examination Z01.20 [facility] [id number] [place] [address] 22779- 8461 Jun, [facility] [id number] [place] [address] 86696- 2282 Jun, Major depressive disorder, recurrent, moderate F33.1 ; Anxiety disorder, unspecified F41.9 and 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 [facility] [id number] [place] [address] 82702- 0626 Jun, [facility] [id number] [place] [address] 24888- 7232 Jun, Wheezing R06.2 [facility] [id number] [place] [address] [id number] Jun, Dental caries K02.9 [place] [id number] [place] [address] 05038- 7189 Jun, Major depressive disorder, recurrent, moderate F33.1 ; Anxiety disorder, unspecified F41.9 and 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 [place] [id number] [place] [address] 54943- 5600 Jun, RLQ abdominal pain R10.31 ; Diabetes E11.9 ; Obesity, unspecified obesity severity, unspecified obesity type E66.9 ; Wheezing R06.2 and Abnormal urinalysis R82.[address] 9[address]91- 6055 May, [address] 06378- 5789 May, Well woman exam Z01.419 ; Breast cancer screening Z12.39 ; Cervical cancer screening Z12.4 ; Urinary frequency R35.0 ; Edema, unspecified type R60.9 and Chronic constipation K59.09 [place] [id number] [place] [address] 26022- 6135 May, Major depressive disorder, recurrent, moderate F33.1 ; Anxiety disorder, unspecified F41.9 and 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 [facility] [address] [place] [address] [id number] May, Dental examination Z01.20 [place] [address] 14339- 0554 May, [place] [id number] [place] [address] 52416- 1243 May, [place] [address] 10235- 7350 May, Chronic constipation K59.09 [place] [address], [place] [address]- 9663 Apr, [place] [id number] [place] [address] 80771- 2256 Apr, Major depressive disorder, recurrent, moderate F33.1 ; Anxiety disorder, unspecified F41.9 and 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 [place] [id number] [place] [address] 53522- 9323 Apr, [place] [id number] [place] [address] 32200- 4536 Mar, Major depressive disorder, recurrent, moderate F33.1 [place] [id number] [place] [address] 04773- 4965 Mar, Major depressive disorder, recurrent, moderate F33.1 ; Generalized anxiety disorder F41.1 and Bipolar I disorder, most recent episode depressed with anxious distress F31.30 [place] [address], [place] [address]- 8005 Mar, Diabetes E11.9 ; Non morbid obesity due to excess calories E66.09 ; Breast cancer screening Z12.39 and Encounter for immunization Z23 [place] [address] [place] [address] 90569- 5071 Mar, Major depressive disorder, recurrent, moderate F33.1 ; Anxiety disorder, unspecified F41.9 and 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 [place] [address], [place] [address]- 8941 Mar, [place] [id number] [place] [address] 42629- 0834 Feb, Major depressive disorder, recurrent, moderate F33.1 ; Anxiety disorder, unspecified F41.9 and 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 [place] [id number] [place] [address] 82756- 7917 Feb, [facility] [id number] [place] [address] 48612- 5197 Feb, [facility] [id number] [place] [address] 01937- 7024 Jan, Major depressive disorder, recurrent, moderate F33.1 ; Generalized anxiety disorder F41.1 and Bipolar disorder, current episode depressed, severe, without psychotic features F31.4 [facility] [id number] [place] [address] 87320- 8121 18 Jan, 2016 Major depressive disorder, recurrent, moderate F33.1 ; Anxiety disorder, unspecified F41.9 and 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 [place] [id number] [place] [address] 28081- 5164 16 Jan, 2016 Bronchitis J40 [place] [id number] [place] [address] 43923- 2832 Jan, [facility] [id number] [place] [address] 63670- 8708 Jan, [facility] [id number] [place] [address] 24121- 4481 Jan, Elbow injury, right, initial encounter S59.901A ; Multiple contusions T14.8 and Cervical strain, acute, initial encounter S16.1XXA [facility] [id number] [place] [address] 59606- 5814 Dec, Major depressive disorder, recurrent, moderate F33.1 ; Generalized anxiety disorder F41.1 and Bipolar disorder with depression F31.30 [facility] [id number] [place] [address] 54166- 0744 Dec, [facility] [id number] [place] [address] 35146- 1309 Dec, [facility] [id number] [place] [address] 44662- 0534 Dec, [facility] [address], [place] [address]- 6075 Dec, [facility] [id number] [place] [address] 47524- 0871 Dec, Yeast infection B37.9 [facility] [id number] [place] [address] 72583- 1203 Dec, Pneumonia of both lungs due to methicillin resistant Staphylococcus aureus (MRSA), unspecified part of lung J15.212 and Benzodiazepine overdose, accidental or unintentional, subsequent encounter T42.4X1D [place] [id number] [place] [address] 68808- 1759 Dec, [place] [id number] [place] [address] 68351- 4379 Dec, [place] [id number] [place] [address] 68662- 6486 Dec, Knee pain, left M25.562 and Edema, unspecified type R60.9 [place] [id number] [place] [address] 10219- 8407 Dec, [place] [id number] [place] [address] 69725- 4234 Dec, Anxiety disorder, unspecified F41.9 and Bipolar disorder, unspecified F31.9 [place] [id number] [place] [address] 66702- 5036 Nov, Major depressive disorder, recurrent, moderate F33.1 ; Anxiety disorder, unspecified F41.9 and 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 [place] [address] [place] [address] 50166- 1889 Nov, [place] [id number] [place] [address] 36079- 8077 Nov, Migraine without aura and without status migrainosus, not intractable G43.009 [place] [id number] [place] [address] 93417- 9795 Nov, Migraine G43.909 [place] [id number] [place] [address] 76250- 9395 Nov, [place] [id number] [place] [address] 16825- 9670 Nov, Major depressive disorder, recurrent, moderate F33.1 ; Anxiety disorder, unspecified F41.9 and 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 [place] [id number] [place] [address] 83959- 3512 Oct, Chronic constipation K59.09 and Obesity, unspecified obesity severity, unspecified obesity type E66.9 [place] [id number] [place] [address] 79486- 7995 Oct, Obesity, unspecified obesity severity, unspecified obesity type E66.9 ; Chronic constipation K59.09 and Anxiety disorder, unspecified F41.9 [place] [id number] [place] [address] 19293- 0724 Oct, [place] [address] [place] [id number] [place] [address] [phone] Sep, Diabetes E11.9 ; Edema, unspecified type R60.9 ; Varicose vein of leg I83.90 and Obesity, unspecified obesity severity, unspecified obesity type E66.9 [place] [address] [place] [id number] [place] [address] [phone] Sep, Edema, unspecified type R60.9 ; Diabetes E11.9 and Knee pain , left M25.562 [place] [address] [place] [id number] [place] [address] [phone] Sep, [place] [address] [place] [id number] [place] [address] [phone] Sep, [place] [address] [place] [id number] [place] [address] [phone] Sep, Major depressive disorder, recurrent, moderate F33.1 ; Generalized anxiety disorder F41.1 and Bipolar disorder, unspecified F31.9 [facility] [id number] [place] [address] [phone] Aug, Chondromalacia of left knee M94.262 [facility] [id number] [place] [address] [phone] Aug, Major depressive disorder, recurrent, moderate F33.1 ; Anxiety disorder, unspecified F41.9 and 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 [facility] [id number] [place] [address] 63165- 3692 Aug, [facility] [address] [id number] [place] [address] 40230- 6009 Aug, Osteoarthritis of left knee M17.9 [facility] [id number] [place] [address] 10233- 7126 Aug, [facility] [id number] [place] [address] 60413- 8219 July, Major depressive disorder, recurrent, moderate F33.1 ; Anxiety disorder, unspecified F41.9 and 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 [facility] [address] [address] 4731 July, [facility] [id number] [place] [address] 32599- 6189 July, Chronic constipation K59.09 [facility] [address] [address] 3119 Jun, [facility] [id number] [place] [address] 63676- 4761 Jun, [facility] [address], [place] [address]- 6573 Jun, Osteoarthritis of left knee M17.9 [facility] [address] 72488- 9238 Jun, [place] [address] 90744- 2321 Jun, Generalized anxiety disorder F41.1 ; Bipolar disorder, unspecified F31.9 and Major depressive disorder, recurrent, moderate F33.1 [place] [address] 38949- 6530 Jun, Migraine G43.909 [place] [address] 26354- 0438 Jun, Left knee pain M25.562 ; Chronic constipation K59.09 ; Dry mouth R68.2 ; Yeast vaginitis B37.3 and Memory loss R41.3 [place] [address] 38298- 1086 Jun, [place] [address] 27611- 1517 May, [place] [address] 84237- 0895 May, [place] [address] 92387- 4812 May, [place] [address] 39458- 3279 May, [place] [address] 65435- 1343 May, Acute bronchitis with COPD J44.0 ; Knee pain, left M25.562 and Encounter for tobacco use cessation counseling Z71.[address] 36626- 2964 May, [place] [address] 46176- 5724 Apr, Diabetes E11.9 ; TMJ (sprain of temporomandibular joint) S03.4XXA ; Tobacco abuse Z72.0 ; Migraine G43.909 and Anxiety F41.9 [facility] [id number] [place] [address] 93967- 9978 Apr, Generalized anxiety disorder F41.1 and Bipolar disorder, unspecified F31.9 [facility] [id number] [place] [address] 76280- 8216 Apr, Major depressive disorder, recurrent, moderate F33.1 ; Anxiety disorder, unspecified F41.9 and 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 [facility] [id number] [place] [address] 43676- 9146 Apr, [facility] [id number] [place] [address] 38170- 4074 Mar, [facility] [id number] [place] [address] 79387- 3527 Feb, [facility] [id number] [place] [address] 50418- 5958 Feb, Major depressive disorder, recurrent, moderate F33.1 ; Anxiety disorder, unspecified F41.9 and 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 [facility] [id number] [place] [address] 56564- 6692 Feb, [facility] [id number] [place] [address] 91341- 6164 Feb, Generalized anxiety disorder F41.1 and Bipolar disorder, unspecified F31.9 [facility] [id number] [place] [address] 60812- 1007 Jan, [facility] [id number] [place] [address] 12003- 9040 Jan, [facility] [id number] [place] [address] 86617- 5620 Jan, Bipolar disorder, unspecified F31.9 and Generalized anxiety disorder F41.1 [facility] [id number] [place] [address] 46732- 8781 14 Dec, 2014 [facility] [address] 58916- 1719 Dec, Bipolar disorder, unspecified F31.9 and Generalized anxiety disorder F41.1 [facility] [id number] [place] [address] 83094- 4471 Dec, Generalized anxiety disorder F41.1 and Major depressive disorder, recurrent, moderate F33.1 [facility] [id number] [place] [address] 64126- 6278 Oct, Headache 784.0 ; Cough 786.2 ; Vomiting and diarrhea 787.03 and Dysuria 788.1 [facility] [id number] [place] [address] 27656- 1730 Aug, [facility] [address] 96623- 1376 Aug, Headache 784.0 and Shortness of breath 786.05 [facility] [id number] [place] [address] 06392- 5296 Aug, [facility] [id number] [place] [address] 69819- 8278 Aug, Migraine 346.90 [facility] [id number] [place] [address] 37416- 2621 Jun, [facility] [id number] [place] [address] 84366- 3872 Jun, [facility] [id number] [place] [address] 92567- 5325 May, [facility] [id number] [place] [address] 14549- 2958 May, [facility] [id number] [place] [address] 27964- 4006 May, [facility] [place] [facility] [address] [id number] [place] [address]- 8883 May, [facility] [place] [facility] [address] [id number] [place] [address]- 9657 May, 2014 [facility] [place] [facility] [address] [id number] [place] [address]- 9296 May, 2014 [facility] [place] [facility] [address] [id number] [place] [address]- 7314 Apr, 2014 [facility] [place] [facility] [address] [id number] [place] [address]- 5063 Apr, 2014 [facility] [place] [facility] [address] [id number] [place] [address]- 4205 Apr, [facility] [place] [facility] [address] [facility] [id number] [place] [address]- 6231 Apr, [facility] [place] [facility] [address] [id number] [place] [address]- 1594 Apr, [facility] [place] [facility] [address] [id number] [place] [address]- 6057 Mar, [facility] [place] [facility] [address] [id number] [place] [address]- 8707 Mar, [facility] [place] [facility] [address] [facility] [id number] [place] [address]- 7671 Mar, [facility] [place] [facility] [address] [id number] [place] [address]- 0942 Mar, [facility] [place] [facility] [address] [id number] [place] [address]- 4841 Feb, [facility] [place] [facility] [address] [id number] [place] [address]- 7598 Feb, [facility] [place] [facility] [address] [id number] [place] 8788 Feb, [facility] [place] [facility] [address] [id number] [place] [address]- 0205 18 Feb, 2014 [facility] [place] [facility] [address] [id number] [place] [address]- 2104 Feb, [facility] [place] [facility] [address] [id number] [place] 8781 Feb, [facility] [place] [facility] [address] [id number] [place] [address]- 6523 Feb, [facility] [place] [facility] [address] [id number] [place] [address]- 5139 Feb, [facility] [place] [facility] [address] [id number] [place] [address]- 5071 Feb, [facility] [place] [facility] [address] [id number] [place] [address]- 8965 Feb, [facility] [place] [facility] [address] [id number] [place] [address]- 4365 Feb, [facility] [place] [facility] [address] [id number] [place] [address]- 8695 Feb, [facility] [place] [facility] [address] [id number] [place] [address]- 6249 Jan, [facility] [place] [facility] [address] [id number] [place] [address]- 7138 Jan, [facility] [place] [facility] [address] [id number] [place] [address]- 1921 Dec, [facility] [place] [facility] [address] [id number] [address]- 6336 Dec, [facility] [place] [facility] [address] [id number] [place] [address]- 6711 Dec, [facility] [place] [facility] [address] [id number] [place] [address]- 8913 Dec, [facility] [place] [facility] [address] [id number] [place] [address]- 1021 Dec, [facility] [place] [facility] [address] [id number] [place] [address]- 2285 Dec, [facility] [place] [facility] [address] [id number] [place] [address]- 2678 Sep, [facility] [place] [facility] [address] [id number] [place] [address]- 1647 Sep, [facility] [place] [facility] [address] [id number] [place] [address]- 8538 Sep, [facility] [place] [facility] [address] [id number] [place] [address]- 6715 Sep, [facility] [place] [facility] [address] [id number] [place] [address]- 6730 Sep, [facility] [place] [facility] [address] [id number] [place] [address]- 9280 Sep, [facility] [place] [facility] [address] [id number] [place] [address]- 3336 Sep, [facility] [place] [facility] [address] [id number] [place] [address]- 0217 Sep, [facility] [place] [facility] [address] [id number] [place] [address]- 5538 Sep, [facility] [place] [facility] [address] [id number] [place] [address]- 8777 Sep, [facility] [place] [facility] [address] [id number] [place] [address]- 9150 Aug, [facility] [place] [facility] [address] [id number] [place] [address]- 7721 Aug, [facility] [place] [facility] [address] [id number] [place] [address]- 4972 Aug, [facility] [place] [facility] [address] [id number] [place] [address]- 2666 Aug, [facility] [place] [facility] [address] [id number] [place] 2862 Aug, [facility] [place] [facility] [address] [id number] [place] [address]- 7834 Aug, [facility] [place] [facility] [address] [id number] [place] [address]- 0382 Aug, [facility] [place] [facility] [address] [id number] [place] [address]- 0158 Aug, [facility] [place] [facility] [address] [id number] [place] [address]- 4037 Aug, [facility] [place] [facility] [address] [id number] [place] [address]- 6292 Aug, [facility] [place] [facility] [address] [id number] [place] [address]- 0744 Aug, [facility] [place] [facility] [address] [id number] [place] [address]- 2877 Aug, [facility] [place] [facility] [address] [id number] [place] [address]- 2020 Aug, [facility] [place] [facility] [address] [id number] [place] [address]- 4808 July, [facility] [place] [facility] [address] [id number] [place] [address]- 9874 July, [facility] [place] [facility] [address] [id number] [place] [address]- 2232 July, [facility] [place] [facility] [address] [id number] [place] [address]- 3154 July, [facility] [place] [facility] [address] [id number] [place] [address]- 3375 July, [facility] [place] [facility] [address] [id number] [place] [address]- 4645 July, [facility] [place] [facility] [address] [id number] [place] [address]- 4690 July, [facility] [place] [facility] [address] [id number] [place] [address]- 9121 23 Jun, 2013 [facility] [place] [facility] [address] [id number] [place] [address]- 9422 23 Jun, 2013 [facility] [place] [facility] [address] [id number] [place] [address]- 3700 18 Jun, 2013 [facility] [place] [facility] [address] [id number] [place] [address]- 6399 16 Jun, 2013 [facility] [place] [facility] [address] [id number] [place] [address]- 1879 16 Jun, 2013 [facility] [place] [facility] [address] [id number] [place] [address]- 6377 08 Jun, 2013 [facility] [place] [facility] [address] [id number] [place] [address]- 3361 08 Jun, 2013 [facility] [place] [facility] [address] [id number] [place] [address]- 1303 17 May, 2013 [facility] [place] [facility] [address] [id number] [place] [address]- 5581 17 May, 2013 [facility] [place] [facility] [address] [id number] [place] [address]- 9470 14 May, 2013 [facility] [place] [facility] [address] [id number] [place] [address]- 1574 14 May, 2013 [facility] [place] [facility] [address] [id number] [place] [address]- 9415 13 May, 2013 [facility] [place] [facility] [address] [id number] [place] [address]- 1113 13 May, 2013 [facility] [place] [facility] [address] [id number] [place] [address]- 5600 10 May, 2013 [facility] [place] [facility] [address] [id number] [place] [address]- 6829 10 May, 2013 [facility] [place] [facility] [address] [id number] [place] [address]- 6141 07 May, 2013 [facility] [place] [facility] [address] [id number] [place] [address]- 9708 Apr, [facility] [place] [facility] [address] [id number] [place] [address]- 7830 Apr, [facility] [place] [facility] [address] [id number] [place] [address]- 5832 Apr, [facility] [place] [facility] [address] [id number] [place] [address]- 9846 Apr, [facility] [place] [facility] [address] [id number] [place] [address]- 9948 Apr, [facility] [place] [facility] [address] [id number] [place] [address]- 5167 Apr, [facility] [place] [facility] [address] [id number] [place] [address]- 6770 Apr, [facility] [place] [facility] [address] [id number] [place] [address]- 7281 Apr, [facility] [place] [facility] [address] [id number] [place] [address]- 2357 Apr, [facility] [place] [facility] [address] [facility] [id number] [place] [address]- 4879 Apr, [facility] [place] [facility] [address] [id number], [place] [address]- 2645 Mar, [facility] [place] [facility] [address] [id number], [place] [address]- 8227 Mar, [facility] [place] [facility] [address] [id number] [place] [address]- 2344 Mar, [facility] [place] [facility] [address] [id number] [place] [address]- 2562 Mar, [facility] [place] [facility] [address] [facility] [id number] [place] [address]- 2193 Mar, [facility] [place] [facility] [address] [id number] [place] [address]- 0462 07 Mar, 2013 [facility] [address] [id number] [place] [address]- 9258 Mar, [facility] [place] [facility] [address] [id number] [place] [address]- 2601 Mar, [facility] [address] [id number] [place] [address]- 0628 Feb, [facility] [place] [facility] [address] [id number] [place] [address]- 6287 Feb, [facility] [place] [facility] [address] [id number] [place] [address]- 2055 Jan, [facility] [place] [facility] [address] [id number] [place] [address]- 4789 18 Jan, 2013 [facility] [place] [facility] [address] [id number] [place] [address]- 2201 15 Jan, 2013 [facility] [place] [facility] [address] [id number] [place] [address]- 2106 15 Jan, 2013 [facility] [place] [facility] [address] [id number] [place] [address]- 1786 Jan, [facility] [place] [facility] [address] [facility] [id number] [place] [address]- 9962 Jan, [facility] [place] [facility] [address] [id number] [place] [address]- 3902 05 Jan, 2013 [facility] [place] [facility] [address] [id number], [place] [address]- 7812 05 Jan, 2013 [facility] [place] [facility] [address] [id number] [place] [address]- 0090 13 Dec, 2012 [facility] [place] [facility] [address] [id number] [place] [address]- 8098 10 Dec, 2012 [facility] [place] [facility] [address] [id number], [place] [address]- 7192 10 Dec, 2012 [facility] [place] [facility] [address] [id number] [place] [address]- 8921 20 Nov, 2012 [facility] [place] [facility] [address] [id number] [place] [address]- 2821 Nov, [facility] [place] [facility] [address] [id number] [place] [address]- 4324 Nov, [facility] [place] [facility] [address] [id number] [place] [address]- 5979 Nov, [facility] [place] [facility] [address] [id number] [place] [address]- 9312 Nov, [facility] [place] [facility] [address] [id number] [place] [address]- 8594 Nov, [facility] [place] [facility] [address] [id number] [place] [address]- 1599 Oct, [facility] [place] [facility] [address] [id number] [place] [address]- 5654 Oct, [facility] [place] [facility] [address] [id number] [place] [address]- 5000 Sep, [facility] [place] [facility] [address] [id number] [place] [address]- 3020 Sep, [facility] [place] [facility] [address] [id number] [place] [address]- 4378 Sep, [facility] [place] [facility] [address] [id number] [place] [address]- 5800 Sep, [facility] [place] [facility] [address] [id number] [place] [address]- 4925 Sep, [facility] [place] [facility] [address] [id number] [place] [address]- 4919 Sep, [facility] [place] [facility] [address] [id number] [place] [address]- 8824 Sep, [facility] [place] [facility] [address] [id number] [place] [address]- 7882 14 Aug, 2012 [facility] [address] [id number] [place] [address]- 8039 14 Aug, 2012 [facility] [place] [facility] [address] [id number] [place] [address]- 2418 13 Aug, 2012 [facility] [place] [facility] [address] [id number] [place] [address]- 3091 12 Aug, 2012 [facility] [place] [facility] [address] [id number] [place] [address]- 4646 Aug, [facility] [place] [facility] [address] [id number] [place] [address]- 1051 Aug, [facility] [place] [facility] [address] [id number] [place] [address]- 7883 July, [facility] [place] [facility] [address] [id number] [place] [address]- 2234 July, [facility] [place] [facility] [address] [id number] [place] [address]- 5980 July, [facility] [place] [facility] [address] [id number] [place] [address]- 9309 July, [facility] [place] [facility] [address] [id number] [place] [address]- 5157 July, [facility] [place] [facility] [address] [id number] [place] [address]- 1165 July, [facility] [place] [facility] [address] [id number] [place] [address]- 9368 Jun, [facility] [place] [facility] [address] [id number] [place] [address] Jun, [facility] [place] [facility] [address] [id number] [place] [address] 15 Jun, 2012 [facility] [place] [facility] [address] [id number] [place] [address] Jun, [facility] [place] [facility] [address] [id number] [place] [address] Jun, [facility] [address] [id number] [place] [address] Jun, [facility] [place] [facility] [address] [id number] [place] [address] Jun, [facility] [place] [facility] [address] [id number] [place] [address] May, [facility] [place] [facility] [address] [id number] [place] [address] May, [facility] [place] [facility] [address] [id number] [place] [address] 26 Apr, 2012 [facility] [place] [facility] [address] [facility] [id number] [place] [address] Apr, [facility] [place] [facility] [address] [facility] [id number] [place] [address] Apr, [facility] [place] [facility] [address] [id number] [place] [address] Apr, [facility] [place] [facility] [address] [facility] [id number] [place] [address] Apr, [facility] [place] [facility] [address] [facility] [id number] [place] [address] 08 Apr, 2012 [facility] [place] [facility] [address] [facility] [id number], [place] [address] Apr, [facility] [place] [facility] [address] [facility] [id number] [place] [address] Apr, [facility] [place] [facility] [address] [facility] [id number] [place] [address] Apr, [facility] [place] [facility] [address] [facility] [id number] [place] [address] Apr, [facility] [place] [facility] [address] [facility] [id number], [place] [address] Apr, [facility] [address] [id number] [place] [address] Mar, [facility] [address] [id number] [place] [address] Mar, [facility] [address] [id number] [place] [address] Mar, [facility] [address] [id number] [place] [address] Mar, [facility] [address] [id number] [place] [address] Mar, [facility] [address] [id number] [place] [address] Mar, [facility] [address] [id number] [place] [address] Mar, [facility] [address] [id number] [place] [address] Mar, [facility] [address] [id number] [place] [address] Mar, [facility] [address] [id number] [place] [address] Mar, [facility] [address] [id number], [place] [address] Mar, [facility] [address] [id number] [place] [address] Mar, [facility] [address] [id number] [place] [address] Mar, [facility] [address] [id number] [place] [address] Feb, [facility] [address] [id number] [place] [address] Feb, [facility] [place] [facility] [address] [id number] [place] [address] 18 Feb, 2012 [facility] [place] [facility] [address] [id number] [place] [address] 18 Feb, 2012 [facility] [place] [facility] [address] [id number] [place] [address] Feb, [facility] [place] [facility] [address] [id number] [place] [address] Feb, [facility] [place] [facility] [address] [id number] [place] [address] Feb, [facility] [place] [facility] [address] [id number] [place] [address] Feb, [facility] [place] [facility] [address] [id number] [place] [address] Feb, [facility] [place] [facility] [address] [id number] [place] [address] Feb, [facility] [place] [facility] [address] [id number] [place] [address] Feb, [facility] [place] [facility] [address] [id number] [place] [address] Feb, [facility] [place] [facility] [address] [id number] [place] [address] Feb, [facility] [place] [facility] [address] [id number] [place] [address]- [address] Feb, [facility] [place] [facility] [address] [id number] [place] [address] Feb, [facility] [place] [facility] [address] [id number] [place] [address] Jan, [facility] [place] [facility] [address] [id number] [place] [address] Jan, [facility] [place] [facility] [address] [id number] [place] [address] Jan, [facility] [place] [facility] [address] [id number] [place] [address] Jan, [facility] [place] [facility] [address] [id number] [place] [address] Dec, [facility] [place] [facility] [address] [id number] [place] [address]- [address] Dec, [facility] [place] [facility] [address] [id number] [place] [address] Dec, [facility] [place] [facility] [address] [id number] [place] [address] Dec, [facility] [place] [facility] [address] [id number] [place] [address] Dec, [facility] [place] [facility] [address] [id number] [place] [address]- 39[address] Dec, [facility] [place] [facility] [address] [id number], [place] [address] Dec, [facility] [facility] [address] [id number] [place] [address] Dec, [facility] [place] [facility] [address] [id number], [place] [address] Dec, [facility] [place] [facility] [address] [id number], [place] [address] Dec, [facility] [place] [facility] [address] [id number], [place] [address] Dec, [facility] [place] [facility] [address] [id number] [place] [address] Nov, [facility] [place] [facility] [address] [id number] [address] 24 Nov, 2011 [facility] [place] [facility] [address] [id number], [place] [address] 20 Nov, 2011 [facility] [place] [facility] [address] [id number] [place] [address] 19 Sep, 2011 [facility] [place] [facility] [address] [id number] [place] [address] 2546 17 Sep, 2011 [facility] [place] [facility] [address] [id number] [place] [address] 2546 16 Sep, 2011 [facility] [place] [facility] [address] [id number] [place] [address] 2546 14 Sep, 2011 [facility] [place] [facility] [address] [id number] [place] [address] 2546 13 Sep, 2011 [facility] [place] [facility] [address] [id number] [place] [address]66 12 Sep, 2011 [facility] [place] [facility] [address] [id number] [place] [address] 2546 07 Sep, 2011 [facility] [place] [facility] [address] [id number] [place] [address] 06 Sep, 2011 [facility] [place] [facility] [address] [id number] [place] [address] 2541 06 Sep, 2011 [facility] [place] [facility] [address] [id number] [place] [address] 288[address] 05 Sep, 2011 [facility] [place] [facility] [address] [id number] [place] [address] 254 29 Oct, 2011 [facility] [place] [facility] [address] [id number] [place] [address] 2546 29 Oct, 2011 [facility] [place] [facility] [address] [id number] [place] [address] 2540 28 Oct, 2011 [facility] [place] [facility] [address] [id number] [place] [address] 2549 28 Oct, 2011 [facility] [place] [facility] [address] [id number] [place] [address]- [address]46 23 Oct, 2011 [facility] [place] [facility] [address] [id number] [place] [address] Oct, [facility] [place] [facility] [address] [id number] [place] [address] Oct, [facility] [place] [facility] [address] [id number] [place] [address] Oct, [facility] [place] [facility] [address] [id number] [place] [address] Oct, [facility] [place] [facility] [address] [id number] [place] [address] 8066 Oct, [facility] [place] [facility] [address] [id number] [place] [address]697 Oct, [facility] [place] [facility] [address] [id number] [place] [address] Sep, [facility] [address] [id number] [place] [address] Sep, [facility] [facility] [address] [id number] [place] [address] 1356 Sep, [facility] [address] [id number] [place] [address] Sep, [facility] [address] [id number] [place] [address] Sep, [facility] [address] [id number] [place] [address] Sep, [facility] [address] [id number] [place] [address] 12[address] Aug, [facility] [address] [id number] [place] [address] July, [facility] [place] [facility] [address] [id number] [place] [address] July, [facility] [address] [id number] [place] [address] Jun, [facility] [place] [address] [id number] [place] [address] 6078 Jun, [facility] [place] [facility] [address] [id number] [place] [address]- [address]222 11 Jun, 2011 [facility] [place] [facility] [address] [id number] [place] [address] 8685 Jun, [facility] [address] [id number] [place] [address]- [address]776 Jun, [facility] [address] [id number] [place] [address] Jun, [facility] [address] [id number] [place] [address] 32[address] Jun, [facility] [address] [id number] [place] [address]- 8148 Jun, [facility] [address] [id number] [place] [address]- [address] Jun, [facility] [address] [id number] [place] [address]- [address] Jun, [facility] [address] [id number] [place] [address]- 4838 Jun, [facility] [address] [id number] [place] [address] 1991 May, [facility] [facility] [address] [id number] [place] [address]- [address] 16 May, 2011 [facility] [address] [id number] [place] [address]- [address] 14 May, 2011 [facility] [address] [id number] [place] [address]- 2922 06 May, 2011 [facility] [facility] [address] [id number] [place] [address]- [address] Apr, [facility] [address] [id number] [place] [address]- 1076 Apr, [facility] [address] [id number] [place] [address]- [address] Apr, [facility] [address] [id number] [place] [address] 1586 Apr, [facility] [address] [id number] [place] [address]- 6126 Apr, [facility] [address] [id number] [place] [address] 9976 Apr, [facility] [address] [id number] [place] [address] 5519 Apr, [facility] [address] [id number] [place] [address]- 7749 Apr, [facility] [address] [id number] [place] [address]34 Mar, [facility] [address] [id number] [place] [address] 4918 Mar, [facility] [address] [id number] [place] [address]- 6188 Mar, [facility] [address] [id number] [place] [address]- 6855 Mar, [facility] [address] [id number] [place] [address]- 3[address] 17 Mar, 2011 [facility] [address] [id number] [place] [address]- 8862 Mar, [facility] [address] [id number] [place] [address]- 6882 Mar, [facility] [address] [id number] [place] [address]- 1801 Mar, [facility] [address] [id number] [place] [address]- 7865 Mar, [facility] [address] [id number] [place] [address]- 5[address] Mar, [facility] [address] [id number] [place] [address]- 5298 Mar, [facility] [address] [id number] [place] [address]- 8665 Mar, [facility] [address] [id number] [place] [address]- 7965 Mar, [facility] [address] [id number] [place] [address]- 6807 Mar, [facility] [address] [id number] [place] [address]- 7625 Mar, [facility] [address] [id number] [place] [address]- 9460 Mar, [facility] [address] [id number] [place] [address]- 2745 Feb, [facility] [address] [id number], [place] [address]- 7979 Feb, [facility] [address] [id number] [place] [address]- 8699 Feb, [facility] [address] [id number] [place] [address]- 6990 Jan, [facility] [address] [id number], [place] [address]- 8768 Jan, [facility] [address] [id number], [place] [address]- [address] Jan, [facility] [address] [id number] [place] [address]- 1740 Dec, [facility] [address] [id number], [place] [address]- 1384 Dec, [facility] [address] [id number] [place] [address]- 0243 16 Nov, 2010 [facility] [address] [facility] [id number], [place] [address]- [address] Oct, [facility] [address] [facility] [id number], [place] [address] 2546 Oct, [facility] [address] [facility] [id number], [place] [address]- 2546 Oct, [facility] [address] [facility] [id number], [place] [address]- 2546 Sep, [facility] [address] [facility] [id number], [place] [address]- 2546 Apr, [facility] [address] [id number], [place] [address]- [address]46 Feb, [facility] [address] [facility] [id number], [place] [address]- [address] Jan, IMMUNIZATIONS No Known Immunizations SOCIAL HISTORY Never Assessed REASON FOR VISIT Rx request PLAN OF CARE VITAL SIGNS MEDICATIONS Medication Instructions Dosage Frequency Start Date End Date Duration Status Nystatin [id number] UNIT/ML Mouth/Throat Four times a day 4 ml swish and swallow 6h Oct, Oct, 10 days Active RESULTS No Results PROCEDURES No [...] History COPD-[facility] 12/30/2016 Hospitalization History [facility] and [facility]-last around 2006 or so. Hospitalization History for COPD x2 Mar 2017 Hospitalization History Upper GI bleed at apr 2017 Hospitalization History [facility]- COPD Exacerbation, diarrhea 05/23/2017 Hospitalization History COPD exacerbation-[facility] 06/13/17 Hospitalization History [facility] 09/09/2017 Hospitalization History COPD-[facility]--[facility] 11/2017
--- OUTSIDE RECORDS SUMMARY | 2017-12-06 13:04 | XMS REPORT ---
Author Author ALIZA CARTER Organization [facility] Address [address] [place] [address] Care Team Providers Care Geological Sample Tester Name Role Phone ALIZA CARTER Unavailable PROBLEMS Type Condition ICD9-CM Code EQE41-UT Code Onset Dates Condition Status SNOMED Code Problem Migraine without aura and without status migrainosus, not intractable G43.009 Active 399091353 Problem Chronic bronchitis, unspecified chronic bronchitis type J42 Active 70829923 Problem Other emphysema J43.8 Active 54816592 Problem Chronic obstructive pulmonary disease, unspecified COPD type J44.9 Active 33442415 Problem COPD with exacerbation J44.1 Active 559484751 Problem Diabetes E11.9 Active 201740940 Problem Methamphetamine use disorder, moderate, 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 Active 59835322 Problem Anxiety F41.9 Active 42929411 Problem Intractable cyclical vomiting with nausea G43.A1 Active 22571678 Problem Tobacco abuse Z72.0 Active 02886226 Problem Migraine G43.909 Active 12258936 Problem Examination of eyes and vision V72.0 Active 952821521 Problem 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 [id number] [address] 17 Nov, 2017 COPD with exacerbation J44.1 and Urinary tract infection without hematuria, site unspecified N39.0 [facility] [address] [facility] [id number], [place] [address] Nov, Chronic obstructive pulmonary disease, unspecified COPD type J44.9 [facility] [address] [place] [address] Oct, [facility] [address] [address] Oct, [facility] [address] [place] [address] 7[address] Oct, [facility] [address] [address] Oct, [facility] [address] [place] [address] Oct, Thrush B37.0 [facility] [address], [place] [address] Sep, COPD with exacerbation J44.1 and Anxiety F41.9 [facility] [address] [address] Sep, [facility] [address], [place] [address] Sep, [facility] [address] [address] 27[address] Sep, [facility] [address] [address] Sep, Acute congestive heart failure, unspecified heart failure type I50.9 and Anxiety disorder, unspecified F41.9 [facility] [id number] [address] Sep, Heart failure, unspecified HF chronicity, unspecified heart failure type I50.9 [facility] [id number] [address] Sep, [facility] [address], [place] [address] Aug, Chronic obstructive pulmonary disease with acute exacerbation J44.1 [facility] [address] [facility] [id number], [place] [address] Aug, [facility] [address] [address] [address] Aug, [facility] [address] July, [facility] [address] [facility] [id number], [place] [address] July, [facility] [id number] [place] [address]2079- 0644 July, Diabetes E11.9 and Chronic obstructive pulmonary disease with acute exacerbation J44.1 [facility] [address] [address] Jun, Chronic obstructive pulmonary disease with acute exacerbation J44.1 ; Diabetes E11.9 and Tobacco abuse Z72.0 [facility] [address] [address] Jun, [facility] [id number] [address]646 Jun, [facility] [address], [place] [address] 2404 May, [facility] [address], [place] [address] 8548 May, [facility] [address], [place] [address] 17 May, 2017 [facility] [address] [address] 16 May, 2017 [facility] [address], [place] [address] 15 May, 2017 [facility] [address] [address]64 May, Diarrhea, unspecified type R19.7 and Intractable cyclical vomiting with nausea G43.A1 [facility] [id number] [place] [address] 24803- 6040 May, [facility] [address] [address] 05 May, 2017 [facility] [address] [address] Apr, COPD exacerbation J44.1 ; Esophageal candidiasis B37.81 ; Other acute gastritis with hemorrhage K29.01 and Acute posthemorrhagic anemia D62 [place] [address] [address] Apr, Viral illness B34.9 and COPD exacerbation J44.1 [facility] [address] [address] Apr, Shortness of breath R06.02 and Pneumonia of both lower lobes due to infectious organism J18.9 [facility] [address] [address] Mar, COPD with acute exacerbation J44.1 [place] [address] [address] Mar, Chronic obstructive pulmonary disease with acute exacerbation J44.1 and Diabetes E11.9 [facility] [id number] [address]6547- 1827 Mar, [facility] [id number] [address] 83745- 9475 Mar, [facility] [address] [address] Mar, COPD exacerbation J44.1 [facility] [address] [address] 09 Mar, 2017 [facility] [address] [address] Mar, Migraine G43.909 ; Hypokalemia E87.6 and Type 2 diabetes mellitus without complications E11.9 [place] [id number] [address] 43281- 4467 Feb, [place] [id number] [place] [address] 63462- 9818 Feb, [place] [address] [address]31 Feb, Methamphetamine use disorder, moderate, 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 ; Major depressive disorder, recurrent, moderate F33.1 ; Anxiety disorder, unspecified F41.9 and Tobacco abuse Z72.0 [place] [id number] [address] 63572- 7033 Jan, Major depressive disorder, recurrent, moderate F33.1 [place] [id number] [address] 00550- 3726 Jan, [place] [id number] [address] 33604- 7587 Jan, [place] [id number] [address] 49560- 5401 Jan, Major depressive disorder, recurrent, moderate F33.1 [place] [id number] [address] 00858- 7727 Jan, Major depressive disorder, recurrent, moderate F33.1 ; Anxiety disorder, unspecified F41.9 ; Methamphetamine use disorder, moderate, 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 and Tobacco abuse Z72.0 [place] [id number] [address] 96009- 3578 Jan, [place] [id number] [address] 85162- 3956 06 Jan, 2017 Chronic obstructive pulmonary disease with acute exacerbation J44.1 and Diabetes E11.9 [place] [address] [address]- 6324 Jan, [facility] [id number] [address] 84986- 2018 Jan, [facility] [id number] [address] 792510- 7616 Dec, Acute respiratory failure with hypoxia J96.01 ; Chronic bronchitis, unspecified chronic bronchitis type J42 and Tobacco use Z72.0 [facility] [id number] [address] 05116- 7423 Dec, [facility] [id number] [id number] Nov, Dental caries K02.9 and Dental examination Z01.20 [facility] [id number] [address] 26938- 4468 Nov, Major depressive disorder, recurrent, moderate F33.1 ; Anxiety disorder, unspecified F41.9 and 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 [facility] [id number] [address] [id number] Oct, Dental examination Z01.20 [facility] [id number] [address] 99874- 4934 Oct, [facility] [id number] [address] 22400- 3371 Oct, Diabetes E11.9 and Thrush B37.0 [facility] [id number] [address] 17181- 9652 Oct, [facility] [id number] [address] 20926- 2778 Oct, [facility] [id number] [address] 83424- 7947 Oct, [facility] [id number] [address] 91610- 3551 Sep, Major depressive disorder, recurrent, moderate F33.1 ; Anxiety disorder, unspecified F41.9 and Bipolar disorder, unspecified F31.9 [facility] [address], [place] [address]- 8688 Sep, Acute exacerbation of chronic obstructive pulmonary disease (COPD) J44.1 and Migraine G43.909 [facility] [id number] [address] 23418- 1859 Sep, [facility] [id number] [address] [id number] Sep, [facility] [id number] [address] 91589- 6476 Sep, Acute exacerbation of chronic obstructive pulmonary disease (COPD) J44.1 [facility] [id number] [address] 03584 -9344 Sep, Acute exacerbation of chronic obstructive pulmonary disease (COPD) J44.1 [facility] [id number] [address] 18114- 7273 Aug, [facility] [id number] [address] 34705- 6402 Aug, Major depressive disorder, recurrent, moderate F33.1 ; Anxiety disorder, unspecified F41.9 and 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 [facility] [id number] [address] 10327- 9699 Aug, Wheezing R06.2 ; Non morbid obesity due to excess calories E66.09 ; Migraine without aura and without status migrainosus, not intractable G43.009 and Tobacco abuse Z72.0 [facility] [id number] [address] [id number] Aug, 2016 Encounter for dental examination Z01.20 [facility] [id number] [place] [address] 85089- 1879 02 Aug, 2016 Major depressive disorder, recurrent, moderate F33.1 ; Anxiety disorder, unspecified F41.9 and 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 [facility] [address], [place] [address]- 3516 July, [facility] [id number] [address] 30354- 6164 July, [facility] [id number] [address] 72497- 5146 July, [facility] [id number] [address] 68709- 4166 July, Diabetes E11.9 [facility] [id number] [address] 41953- 8249 Jun, Major depressive disorder, recurrent, moderate F33.1 [facility] [id number] [place] [address] 76189- 6328 Jun, Major depressive disorder, recurrent, moderate F33.1 ; 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 ; Generalized anxiety disorder F41.1 and Bipolar disorder, unspecified F31.9 [facility] [id number] [address] 44483- 1545 Jun, Diabetes E11.9 ; Migraine G43.909 ; Thrush B37.0 and Wheezing R06.2 [facility] [id number] [place] [address] [id number] Jun, Dental examination Z01.20 [facility] [id number] [address] 87288- 6773 Jun, [facility] [id number] [address] 68852- 9008 Jun, Major depressive disorder, recurrent, moderate F33.1 ; Anxiety disorder, unspecified F41.9 and 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 [facility] [id number] [address] 66253- 5346 Jun, [facility] [id number] [address] 20743- 9224 Jun, Wheezing R06.2 [facility] [id number] [address] [id number] Jun, Dental caries K02.9 [place] [id number] [address] 18435- 6081 Jun, Major depressive disorder, recurrent, moderate F33.1 ; Anxiety disorder, unspecified F41.9 and 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 [place] [id number] [address] 55754- 3994 Jun, RLQ abdominal pain R10.31 ; Diabetes E11.9 ; Obesity, unspecified obesity severity, unspecified obesity type E66.9 ; Wheezing R06.2 and Abnormal urinalysis R82.[address] [address]15- 5547 May, [address] 73[address]- 9184 May, Well woman exam Z01.419 ; Breast cancer screening Z12.39 ; Cervical cancer screening Z12.4 ; Urinary frequency R35.0 ; Edema, unspecified type R60.9 and Chronic constipation K59.09 [place] [id number] [address] 76321- 1210 May, Major depressive disorder, recurrent, moderate F33.1 ; Anxiety disorder, unspecified F41.9 and 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 [facility] [id number] [address] [id number] May, Dental examination Z01.20 [place] [address] 20825- 5322 May, [place] [id number] [address] 32228- 8114 May, [place] [address] 32380- 1638 May, Chronic constipation K59.09 [place] [address], [place] [address]- 3726 Apr, [place] [id number] [address] 14084- 1647 Apr, Major depressive disorder, recurrent, moderate F33.1 ; Anxiety disorder, unspecified F41.9 and 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 [place] [id number] [address] 64241- 9551 Apr, [place] [id number] [address] 82905- 4358 Mar, Major depressive disorder, recurrent, moderate F33.1 [place] [id number] [address] 55666- 8793 Mar, Major depressive disorder, recurrent, moderate F33.1 ; Generalized anxiety disorder F41.1 and Bipolar I disorder, most recent episode depressed with anxious distress F31.30 [place] [address], [place] [address]- 4557 Mar, Diabetes E11.9 ; Non morbid obesity due to excess calories E66.09 ; Breast cancer screening Z12.39 and Encounter for immunization Z23 [place] [id number] [address] 12577- 5227 Mar, Major depressive disorder, recurrent, moderate F33.1 ; Anxiety disorder, unspecified F41.9 and 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 [place] [address], [place] [address]- 6298 Mar, [place] [id number] [address] 36170- 8400 Feb, Major depressive disorder, recurrent, moderate F33.1 ; Anxiety disorder, unspecified F41.9 and 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 [place] [id number] [address] 59239- 9572 Feb, [facility] [id number] [address] 27148- 8271 Feb, [facility] [id number] [address] 84135- 7699 Jan, Major depressive disorder, recurrent, moderate F33.1 ; Generalized anxiety disorder F41.1 and Bipolar disorder, current episode depressed, severe, without psychotic features F31.4 [facility] [id number] [address] 26960- 6330 18 Jan, 2016 Major depressive disorder, recurrent, moderate F33.1 ; Anxiety disorder, unspecified F41.9 and 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 [place] [id number] [address] 26330- 0302 16 Jan, 2016 Bronchitis J40 [place] [id number] [address] 47338- 1165 Jan, [facility] [id number] [address] 21938- 8639 Jan, [facility] [id number] [address] 38303- 7621 Jan, Elbow injury, right, initial encounter S59.901A ; Multiple contusions T14.8 and Cervical strain, acute, initial encounter S16.1XXA [facility] [id number] [address] 24165- 8808 Dec, Major depressive disorder, recurrent, moderate F33.1 ; Generalized anxiety disorder F41.1 and Bipolar disorder with depression F31.30 [facility] [id number] [address] 08406- 5319 Dec, [facility] [id number] [address] 25656- 8313 Dec, [facility] [id number] [address] 49532- 2261 Dec, [facility] [address], [place] [address]- 8451 Dec, [facility] [id number] [address] 41895- 5010 Dec, Yeast infection B37.9 [facility] [id number] [address] 73684- 2064 Dec, Pneumonia of both lungs due to methicillin resistant Staphylococcus aureus (MRSA), unspecified part of lung J15.212 and Benzodiazepine overdose, accidental or unintentional, subsequent encounter T42.4X1D [place] [id number] [address] 28816- 2930 Dec, [place] [id number] [address] 10361- 8880 Dec, [place] [id number] [address] 79095- 0038 Dec, Knee pain, left M25.562 and Edema, unspecified type R60.9 [place] [id number] [address] 35906- 9444 Dec, [place] [id number] [address] 05412- 8854 Dec, Anxiety disorder, unspecified F41.9 and Bipolar disorder, unspecified F31.9 [place] [id number] [address] 35732- 0152 Nov, Major depressive disorder, recurrent, moderate F33.1 ; Anxiety disorder, unspecified F41.9 and 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 [place] [id number] [address] 83674- 4185 Nov, [place] [id number] [address] 48917- 5794 Nov, Migraine without aura and without status migrainosus, not intractable G43.009 [place] [id number] [address] 13526- 4593 Nov, Migraine G43.909 [place] [id number] [address] 50438- 9776 Nov, [place] [id number] [address] 31418- 3402 Nov, Major depressive disorder, recurrent, moderate F33.1 ; Anxiety disorder, unspecified F41.9 and 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 [place] [id number] [address] 85288- 8318 Oct, Chronic constipation K59.09 and Obesity, unspecified obesity severity, unspecified obesity type E66.9 [place] [id number] [address] 53478- 2008 Oct, Obesity, unspecified obesity severity, unspecified obesity type E66.9 ; Chronic constipation K59.09 and Anxiety disorder, unspecified F41.9 [place] [id number] [address] 24865- 8581 Oct, [place] [address] [id number] [place] [address] [id number]- 1393 Sep, Diabetes E11.9 ; Edema, unspecified type R60.9 ; Varicose vein of leg I83.90 and Obesity, unspecified obesity severity, unspecified obesity type E66.9 [place] [address] [id number] [place] [address] 82672- 9102 Sep, Edema, unspecified type R60.9 ; Diabetes E11.9 and Knee pain , left M25.562 [place] [address] [id number] [place] [address] [id number]- [id number] Sep, [place] [address] [id number] [place] [address] 09954- 2861 Sep, [place] [address] [id number] [address] [id number]- 6997 Sep, Major depressive disorder, recurrent, moderate F33.1 ; Generalized anxiety disorder F41.1 and Bipolar disorder, unspecified F31.9 [facility] [id number] [place] [address] 34424- 8677 Aug, Chondromalacia of left knee M94.262 [facility] [id number] [place] [address] [id number]- [phone] Aug, Major depressive disorder, recurrent, moderate F33.1 ; Anxiety disorder, unspecified F41.9 and 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 [facility] [id number] [address] 15838- 1168 Aug, [facility] [address] [place] [id number] [place] [address] 39954- 5771 Aug, Osteoarthritis of left knee M17.9 [facility] [id number] [place] [address] 06429- 3349 Aug, [facility] [id number] [address] 78057- 3142 July, Major depressive disorder, recurrent, moderate F33.1 ; Anxiety disorder, unspecified F41.9 and 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 [facility] [id number] [address] 97[address] July, [facility] [id number] [address] 73187- 0642 July, Chronic constipation K59.09 [facility] [address] [address] 3478 Jun, [facility] [id number] [address] 04952- 8150 Jun, [facility] [address] [address] 7515 Jun, Osteoarthritis of left knee M17.9 [facility] [address] 37846- 9939 Jun, [place] [address] 99705- 0166 Jun, Generalized anxiety disorder F41.1 ; Bipolar disorder, unspecified F31.9 and Major depressive disorder, recurrent, moderate F33.1 [place] [address] 21840- 6626 Jun, Migraine G43.909 [place] [address] 83881- 7699 Jun, Left knee pain M25.562 ; Chronic constipation K59.09 ; Dry mouth R68.2 ; Yeast vaginitis B37.3 and Memory loss R41.3 [place] [address] 46399- 3009 Jun, [place] [address] 40362- 7893 May, [place] [address] 15460- 6656 May, [place] [address] 24591- 9136 May, [place] [address] 37881- 4251 May, [place] [address] 64913- 0538 May, Acute bronchitis with COPD J44.0 ; Knee pain, left M25.562 and Encounter for tobacco use cessation counseling Z71.[address] [address]16- 3517 May, [place] [address] 83950- 2790 Apr, Diabetes E11.9 ; TMJ (sprain of temporomandibular joint) S03.4XXA ; Tobacco abuse Z72.0 ; Migraine G43.909 and Anxiety F41.9 [facility] [id number] [address] 89982- 4443 Apr, Generalized anxiety disorder F41.1 and Bipolar disorder, unspecified F31.9 [facility] [id number] [place] [address] 24117- 9446 Apr, Major depressive disorder, recurrent, moderate F33.1 ; Anxiety disorder, unspecified F41.9 and 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 [facility] [id number] [address] 41339- 0446 Apr, [facility] [id number] [address] 27099- 7893 Mar, [facility] [id number] [address] 24536- 4839 Feb, [facility] [id number] [address] 60972- 2150 Feb, Major depressive disorder, recurrent, moderate F33.1 ; Anxiety disorder, unspecified F41.9 and 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 [facility] [id number] [address] 15824- 1276 Feb, [facility] [id number] [address] 18363- 4096 Feb, Generalized anxiety disorder F41.1 and Bipolar disorder, unspecified F31.9 [facility] [id number] [address] 89441- 6719 Jan, [facility] [id number] [address] 51280- 5755 Jan, [facility] [id number] [address] 40249- 9594 Jan, Bipolar disorder, unspecified F31.9 and Generalized anxiety disorder F41.1 [facility] [id number] [address] 63796- 5220 14 Dec, 2014 [facility] [address] 97092- 0886 Dec, Bipolar disorder, unspecified F31.9 and Generalized anxiety disorder F41.1 [facility] [id number] [address] 79797- 2578 Dec, Generalized anxiety disorder F41.1 and Major depressive disorder, recurrent, moderate F33.1 [facility] [id number] [address] 35823- 0548 Oct, Headache 784.0 ; Cough 786.2 ; Vomiting and diarrhea 787.03 and Dysuria 788.1 [facility] [id number] [address] 46018- 2472 Aug, [facility] [address] 26436- 8403 Aug, Headache 784.0 and Shortness of breath 786.05 [facility] [id number] [address] 70731- 7232 Aug, [facility] [id number] [address] 39152- 7808 Aug, Migraine 346.90 [facility] [id number] [address] 70524- 8355 Jun, [facility] [id number] [address] 34041- 7144 Jun, [facility] [id number] [address] 46021- 5294 May, [facility] [id number] [address] 60067- 5191 May, [facility] [id number] [address] 57943- 1973 May, [facility] [place] [facility] [address] [id number] [place] [address]- 3602 May, [facility] [place] [facility] [address] [id number] [place] [address]- 7141 May, 2014 [facility] [place] [facility] [address] [id number] [place] [address]- 1133 May, 2014 [facility] [place] [facility] [address] [id number] [place] [address]- 7629 Apr, 2014 [facility] [place] [facility] [address] [id number] [place] [address]- 3535 Apr, 2014 [facility] [place] [facility] [address] [id number] [place] [address]- 2591 Apr, [facility] [place] [facility] [address] [facility] [id number] [place] [address]- 9031 Apr, [facility] [place] [facility] [address] [id number] [place] [address]- 1975 Apr, [facility] [place] [facility] [address] [id number] [place] [address]- 6556 Mar, [facility] [place] [facility] [address] [id number] [place] [address]- 9738 Mar, [facility] [place] [facility] [address] [facility] [id number] [place] [address]- 2680 Mar, [facility] [place] [facility] [address] [id number] [place] [address]- 4730 Mar, [facility] [place] [facility] [address] [id number] [place] [address]- 9964 Feb, [facility] [place] [facility] [address] [id number] [place] [address]- 6750 Feb, [facility] [place] [facility] [address] [id number] [place] 7660 Feb, [facility] [place] [facility] [address] [id number] [place] [address]- 8639 18 Feb, 2014 [facility] [place] [facility] [address] [id number] [place] [address]- 0389 Feb, [facility] [place] [facility] [address] [id number] [place] 6726 Feb, [facility] [place] [facility] [address] [id number] [place] [address]- 4712 Feb, [facility] [place] [facility] [address] [id number] [place] [address]- 5508 Feb, [facility] [place] [facility] [address] [id number] [place] [address]- 3234 Feb, [facility] [place] [facility] [address] [id number] [place] [address]- 0222 Feb, [facility] [place] [facility] [address] [id number] [place] [address]- 6781 Feb, [facility] [place] [facility] [address] [id number] [place] [address]- 1614 Feb, [facility] [place] [facility] [address] [id number] [place] [address]- 3206 Jan, [facility] [place] [facility] [address] [id number] [place] [address]- 2685 Jan, [facility] [place] [facility] [address] [id number] [place] [address]- 0117 Dec, [facility] [place] [facility] [address] [id number] [address]- 7590 Dec, [facility] [place] [facility] [address] [id number] [place] [address]- 7035 Dec, [facility] [place] [facility] [address] [id number] [place] [address]- 1502 Dec, [facility] [place] [facility] [address] [id number] [place] [address]- 5668 Dec, [facility] [place] [facility] [address] [id number] [place] [address]- 4164 Dec, [facility] [place] [facility] [address] [id number] [place] [address]- 4814 Sep, [facility] [place] [facility] [address] [id number] [place] [address]- 2611 Sep, [facility] [place] [facility] [address] [id number] [place] [address]- 0545 Sep, [facility] [place] [facility] [address] [id number] [place] [address]- 3951 Sep, [facility] [place] [facility] [address] [id number] [place] [address]- 2135 Sep, [facility] [place] [facility] [address] [id number] [place] [address]- 8066 Sep, [facility] [place] [facility] [address] [id number] [place] [address]- 8400 Sep, [facility] [place] [facility] [address] [id number] [place] [address]- 7261 Sep, [facility] [place] [facility] [address] [id number] [place] [address]- 2991 Sep, [facility] [place] [facility] [address] [id number] [place] [address]- 7498 Sep, [facility] [place] [facility] [address] [id number] [place] [address]- 7388 Aug, [facility] [place] [facility] [address] [id number] [place] [address]- 6078 Aug, [facility] [place] [facility] [address] [id number] [place] [address]- 6640 Aug, [facility] [place] [facility] [address] [id number] [place] [address]- 2836 Aug, [facility] [place] [facility] [address] [id number] [place] 7292 Aug, [facility] [place] [facility] [address] [id number] [place] [address]- 0584 Aug, [facility] [place] [facility] [address] [id number] [place] [address]- 3669 Aug, [facility] [place] [facility] [address] [id number] [place] [address]- 3140 Aug, [facility] [place] [facility] [address] [id number] [place] [address]- 3198 Aug, [facility] [place] [facility] [address] [id number] [place] [address]- 3072 Aug, [facility] [place] [facility] [address] [id number] [place] [address]- 4448 Aug, [facility] [place] [facility] [address] [id number] [place] [address]- 9596 Aug, [facility] [place] [facility] [address] [id number] [place] [address]- 0617 Aug, [facility] [place] [facility] [address] [id number] [place] [address]- 1786 July, [facility] [place] [facility] [address] [id number] [place] [address]- 5144 July, [facility] [place] [facility] [address] [id number] [place] [address]- 9984 July, [facility] [place] [facility] [address] [id number] [place] [address]- 3732 July, [facility] [place] [facility] [address] [id number] [place] [address]- 2665 July, [facility] [place] [facility] [address] [id number] [place] [address]- 7193 July, [facility] [place] [facility] [address] [id number] [place] [address]- 9821 July, [facility] [place] [facility] [address] [id number] [place] [address]- 7022 23 Jun, 2013 [facility] [place] [facility] [address] [id number] [place] [address]- 6207 23 Jun, 2013 [facility] [place] [facility] [address] [id number] [place] [address]- 3073 18 Jun, 2013 [facility] [place] [facility] [address] [id number] [place] [address]- 8718 16 Jun, 2013 [facility] [place] [facility] [address] [id number] [place] [address]- 8426 16 Jun, 2013 [facility] [place] [facility] [address] [id number] [place] [address]- 4621 08 Jun, 2013 [facility] [place] [facility] [address] [id number] [place] [address]- 1863 08 Jun, 2013 [facility] [place] [facility] [address] [id number] [place] [address]- 3563 17 May, 2013 [facility] [place] [facility] [address] [id number] [place] [address]- 9648 17 May, 2013 [facility] [place] [facility] [address] [id number] [place] [address]- 5955 14 May, 2013 [facility] [place] [facility] [address] [id number] [place] [address]- 8105 14 May, 2013 [facility] [place] [facility] [address] [id number] [place] [address]- 9771 13 May, 2013 [facility] [place] [facility] [address] [id number] [place] [address]- 2791 13 May, 2013 [facility] [place] [facility] [address] [id number] [place] [address]- 9585 10 May, 2013 [facility] [place] [facility] [address] [id number] [place] [address]- 6782 10 May, 2013 [facility] [place] [facility] [address] [id number] [place] [address]- 4455 07 May, 2013 [facility] [place] [facility] [address] [id number] [place] [address]- 1489 Apr, [facility] [place] [facility] [address] [id number] [place] [address]- 7380 Apr, [facility] [place] [facility] [address] [id number] [place] [address]- 9036 Apr, [facility] [place] [facility] [address] [id number] [place] [address]- 9271 Apr, [facility] [place] [facility] [address] [id number] [place] [address]- 1549 Apr, [facility] [place] [facility] [address] [id number] [place] [address]- 5545 Apr, [facility] [place] [facility] [address] [id number] [place] [address]- 4745 Apr, [facility] [place] [facility] [address] [id number] [place] [address]- 3536 Apr, [facility] [place] [facility] [address] [id number] [place] [address]- 7893 Apr, [facility] [place] [facility] [address] [facility] [id number] [place] [address]- 8815 Apr, [facility] [place] [facility] [address] [id number], [place] [address]- 5317 Mar, [facility] [place] [facility] [address] [id number], [place] [address]- 1869 Mar, [facility] [place] [facility] [address] [id number] [place] [address]- 4331 Mar, [facility] [place] [facility] [address] [id number] [place] [address]- 6010 Mar, [facility] [place] [facility] [address] [facility] [id number] [place] [address]- 8484 Mar, [facility] [place] [facility] [address] [id number] [place] [address]- 4224 07 Mar, 2013 [facility] [address] [id number] [place] [address]- 1753 Mar, [facility] [place] [facility] [address] [id number] [place] [address]- 2168 Mar, [facility] [address] [id number] [place] [address]- 0876 Feb, [facility] [place] [facility] [address] [id number] [place] [address]- 3938 Feb, [facility] [place] [facility] [address] [id number] [place] [address]- 6983 Jan, [facility] [place] [facility] [address] [id number] [place] [address]- 2634 18 Jan, 2013 [facility] [place] [facility] [address] [id number] [place] [address]- 6343 15 Jan, 2013 [facility] [place] [facility] [address] [id number] [place] [address]- 1738 15 Jan, 2013 [facility] [place] [facility] [address] [id number] [place] [address]- 6123 Jan, [facility] [place] [facility] [address] [facility] [id number] [place] [address]- 3494 Jan, [facility] [place] [facility] [address] [id number] [place] [address]- 0328 05 Jan, 2013 [facility] [place] [facility] [address] [id number], [place] [address]- 0489 05 Jan, 2013 [facility] [place] [facility] [address] [id number] [place] [address]- 1878 13 Dec, 2012 [facility] [place] [facility] [address] [id number] [place] [address]- 9128 10 Dec, 2012 [facility] [place] [facility] [address] [id number], [place] [address]- 1816 10 Dec, 2012 [facility] [place] [facility] [address] [id number] [place] [address]- 4968 20 Nov, 2012 [facility] [place] [facility] [address] [id number] [place] [address]- 9437 Nov, [facility] [place] [facility] [address] [id number] [place] [address]- 9372 Nov, [facility] [place] [facility] [address] [id number] [place] [address]- 4870 Nov, [facility] [place] [facility] [address] [id number] [place] [address]- 1301 Nov, [facility] [place] [facility] [address] [id number] [place] [address]- 4053 Nov, [facility] [place] [facility] [address] [id number] [place] [address]- 6732 Oct, [facility] [place] [facility] [address] [id number] [place] [address]- 9510 Oct, [facility] [place] [facility] [address] [id number] [place] [address]- 8454 Sep, [facility] [place] [facility] [address] [id number] [place] [address]- 1400 Sep, [facility] [place] [facility] [address] [id number] [place] [address]- 2692 Sep, [facility] [place] [facility] [address] [id number] [place] [address]- 1483 Sep, [facility] [place] [facility] [address] [id number] [place] [address]- 8920 Sep, [facility] [place] [facility] [address] [id number] [place] [address]- 4775 Sep, [facility] [place] [facility] [address] [id number] [place] [address]- 7878 Sep, [facility] [place] [facility] [address] [id number] [place] [address]- 9221 14 Aug, 2012 [facility] [address] [id number] [place] [address]- 5413 14 Aug, 2012 [facility] [place] [facility] [address] [id number] [place] [address]- 4146 13 Aug, 2012 [facility] [place] [facility] [address] [id number] [place] [address]- 1603 12 Aug, 2012 [facility] [place] [facility] [address] [id number] [place] [address]- 0850 Aug, [facility] [place] [facility] [address] [id number] [place] [address]- 4540 Aug, [facility] [place] [facility] [address] [id number] [place] [address]- 1697 July, [facility] [place] [facility] [address] [id number] [place] [address]- 7705 July, [facility] [place] [facility] [address] [id number] [place] [address]- 3761 July, [facility] [place] [facility] [address] [id number] [place] [address]- 7685 July, [facility] [place] [facility] [address] [id number] [place] [address] July, [facility] [place] [facility] [address] [id number] [place] [address] July, [facility] [place] [facility] [address] [id number] [place] [address] Jun, [facility] [place] [facility] [address] [id number] [place] [address] Jun, [facility] [place] [facility] [address] [id number] [place] [address] 15 Jun, 2012 [facility] [place] [facility] [address] [id number] [place] [address] Jun, [facility] [place] [facility] [address] [id number] [place] [address] Jun, [facility] [address] [id number] [place] [address] Jun, [facility] [place] [facility] [address] [id number] [place] [address] Jun, [facility] [place] [facility] [address] [id number] [place] [address] May, [facility] [place] [facility] [address] [id number] [place] [address] May, [facility] [place] [facility] [address] [id number] [place] [address] 26 Apr, 2012 [facility] [place] [facility] [address] [facility] [id number] [place] [address] Apr, [facility] [place] [facility] [address] [facility] [id number] [place] [address] Apr, [facility] [place] [facility] [address] [id number] [place] [address] Apr, [facility] [place] [facility] [address] [facility] [id number] [place] [address] Apr, [facility] [place] [facility] [address] [facility] [id number] [place] [address] 08 Apr, 2012 [facility] [place] [facility] [address] [facility] [id number], [place] [address] Apr, [facility] [place] [facility] [address] [facility] [id number] [place] [address] Apr, [facility] [place] [facility] [address] [facility] [id number] [place] [address] Apr, [facility] [place] [facility] [address] [facility] [id number] [place] [address] Apr, [facility] [place] [facility] [address] [facility] [id number], [place] [address] Apr, [facility] [address] [id number] [place] [address] Mar, [facility] [address] [id number] [place] [address] Mar, [facility] [address] [id number] [place] [address] Mar, [facility] [address] [id number] [place] [address] Mar, [facility] [address] [id number] [place] [address] Mar, [facility] [address] [id number] [place] [address] Mar, [facility] [address] [id number] [place] [address] Mar, [facility] [address] [id number] [place] [address] Mar, [facility] [address] [id number] [place] [address] Mar, [facility] [address] [id number] [place] [address] Mar, [facility] [address] [id number], [place] [address] Mar, [facility] [address] [id number] [place] [address] Mar, [facility] [address] [id number] [place] [address] Mar, [facility] [address] [id number] [place] [address] Feb, [facility] [address] [id number] [place] [address] Feb, [facility] [place] [facility] [address] [id number] [place] [address] 18 Feb, 2012 [facility] [place] [facility] [address] [id number] [place] [address] 18 Feb, 2012 [facility] [place] [facility] [address] [id number] [place] [address] Feb, [facility] [place] [facility] [address] [id number] [place] [address] Feb, [facility] [place] [facility] [address] [id number] [place] [address] Feb, [facility] [place] [facility] [address] [id number] [place] [address] Feb, [facility] [place] [facility] [address] [id number] [place] [address] Feb, [facility] [place] [facility] [address] [id number] [place] [address] Feb, [facility] [place] [facility] [address] [id number] [place] [address] Feb, [facility] [place] [facility] [address] [id number] [place] [address] Feb, [facility] [place] [facility] [address] [id number] [place] [address]- [address] Feb, [facility] [place] [facility] [address] [id number] [place] [address] Feb, [facility] [place] [facility] [address] [id number] [place] [address] Feb, [facility] [place] [facility] [address] [id number] [place] [address]- [address] Jan, [facility] [place] [facility] [address] [id number] [place] [address]- [address] Jan, [facility] [place] [facility] [address] [id number] [place] [address]- [address] Jan, [facility] [place] [facility] [address] [id number] [place] [address] Jan, [facility] [place] [facility] [address] [id number] [place] [address] Dec, [facility] [place] [facility] [address] [id number] [place] [address]- [address] Dec, [facility] [place] [facility] [address] [id number] [place] [address] Dec, [facility] [place] [facility] [address] [id number] [place] [address] Dec, [facility] [place] [facility] [address] [id number] [place] [address] Dec, [facility] [place] [facility] [address] [id number] [place] [address] Dec, [facility] [place] [facility] [address] [id number], [place] [address] Dec, [facility] [place] [facility] [address] [id number] [place] [address] Dec, [facility] [place] [facility] [address] [id number], [place] [address] Dec, [facility] [place] [facility] [address] [id number], [place] [address] Dec, [facility] [place] [facility] [address] [id number], [place] [address] Dec, [facility] [place] [facility] [address] [id number] [place] [address]673 Nov, [facility] [place] [facility] [address] [id number] [address] 24 Nov, 2011 [facility] [place] [facility] [address] [id number], [place] [address] 20 Nov, 2011 [facility] [place] [facility] [address] [id number] [place] [address]70 19 Sep, 2011 [facility] [place] [facility] [address] [id number] [place] [address] 2546 17 Sep, 2011 [facility] [place] [facility] [address] [id number] [place] [address] 2546 16 Sep, 2011 [facility] [place] [facility] [address] [id number] [place] [address] 2546 14 Sep, 2011 [facility] [place] [facility] [address] [id number] [place] [address] 2546 13 Sep, 2011 [facility] [place] [facility] [address] [id number] [place] [address]016 12 Sep, 2011 [facility] [place] [facility] [address] [id number] [place] [address] 2546 07 Sep, 2011 [facility] [place] [facility] [address] [id number] [place] [address] 9839 06 Sep, 2011 [facility] [place] [facility] [address] [id number] [place] [address] 2547 06 Sep, 2011 [facility] [place] [facility] [address] [id number] [place] [address]- 2868 05 Sep, 2011 [facility] [place] [facility] [address] [id number] [place] [address] 2540 29 Oct, 2011 [facility] [place] [facility] [address] [id number] [place] [address] 2546 29 Oct, 2011 [facility] [place] [facility] [address] [id number] [place] [address] 2540 28 Oct, 2011 [facility] [place] [facility] [address] [id number] [place] [address] 2542 28 Oct, 2011 [facility] [place] [facility] [address] [id number] [place] [address]- 2546 23 Oct, 2011 [facility] [place] [facility] [address] [id number] [place] [address]- 8582 Oct, [facility] [place] [facility] [address] [id number] [place] [address]15 Oct, [facility] [place] [facility] [address] [id number] [place] [address]146 Oct, [facility] [place] [facility] [address] [id number] [place] [address]006 Oct, [facility] [place] [facility] [address] [id number] [place] [address]- 1844 Oct, [facility] [place] [facility] [address] [id number] [place] [address] 3265 Oct, [facility] [place] [facility] [address] [id number] [place] [address] Sep, [facility] [place] [facility] [address] [id number] [place] [address] 7045 Sep, [facility] [place] [facility] [address] [id number] [place] [address] 5903 Sep, [facility] [place] [facility] [address] [id number] [place] [address] 1128 Sep, [facility] [place] [facility] [address] [id number] [place] [address]- 5661 Sep, [facility] [place] [facility] [address] [id number] [place] [address] 4238 Sep, [facility] [place] [facility] [address] [id number] [place] [address] 2519 Aug, [facility] [place] [facility] [address] [id number] [place] [address] July, [facility] [place] [facility] [address] [id number] [place] [address] 1628 July, [facility] [place] [facility] [address] [id number] [place] [address]783 Jun, [facility] [place] [facility] [address] [id number] [place] [address] 3554 Jun, [facility] [place] [facility] [address] [id number] [place] [address]- 7484 11 Jun, 2011 [facility] [place] [facility] [address] [id number] [place] [address]- 0751 Jun, [facility] [place] [facility] [address] [id number] [place] [address] 5034 Jun, [facility] [place] [facility] [address] [id number] [place] [address]- 3647 Jun, [facility] [place] [facility] [address] [id number] [place] [address]- 1896 Jun, [facility] [place] [facility] [address] [id number] [place] [address]- 2724 Jun, [facility] [place] [facility] [address] [id number] [place] [address]- 4422 Jun, [facility] [place] [facility] [address] [id number] [place] [address]- 9058 Jun, [facility] [place] [facility] [address] [id number] [place] [address]- 7444 Jun, [facility] [place] [facility] [address] [id number] [place] [address]- 9786 May, [facility] [place] [facility] [address] [id number] [place] [address]- 9674 16 May, 2011 [facility] [place] [facility] [address] [id number] [place] [address]- 9075 14 May, 2011 [facility] [place] [facility] [address] [id number] [place] [address]- 7638 06 May, 2011 [facility] [place] [facility] [address] [id number] [place] [address] 1906 Apr, [facility] [place] [facility] [address] [id number] [place] [address]- 5741 Apr, [facility] [place] [facility] [address] [id number] [place] [address] 5804 Apr, [facility] [address] [id number] [place] [address]- 7376 Apr, [facility] [place] [facility] [address] [id number] [place] [address]- 7606 Apr, [facility] [place] [facility] [address] [id number] [place] [address]- 5876 Apr, [facility] [place] [facility] [address] [id number] [place] [address]- 8652 Apr, [facility] [place] [facility] [address] [id number] [place] [address]- 4454 Apr, [facility] [address] [id number] [place] [address]- 9526 Mar, [facility] [address] [id number] [place] [address]- 1125 Mar, [facility] [place] [facility] [address] [id number] [place] [address]- 2922 Mar, [facility] [place] [facility] [address] [id number] [place] [address]- 2056 Mar, [facility] [place] [facility] [address] [id number] [place] [address]- 4929 17 Mar, 2011 [facility] [place] [facility] [address] [id number] [place] [address]- 7444 Mar, [facility] [place] [facility] [address] [id number] [place] [address]- 9642 Mar, [facility] [place] [facility] [address] [id number] [place] [address]- 3314 Mar, [facility] [place] [facility] [address] [id number] [place] [address]- 0136 Mar, [facility] [place] [facility] [address] [id number] [place] [address]- 4359 Mar, [facility] [place] [facility] [address] [id number] [place] [address]- 0146 Mar, [facility] [place] [facility] [address] [id number] [place] [address]- 8158 Mar, [facility] [place] [facility] [address] [id number] [place] [address]- 0748 Mar, [facility] [place] [facility] [address] [id number] [place] [address]- 2156 Mar, [facility] [place] [facility] [address] [id number] [place] [address]- 2078 Mar, [facility] [place] [facility] [address] [id number] [place] [address]- 8770 Mar, [facility] [place] [facility] [address] [id number] [place] [address]- 3457 Feb, [facility] [place] [facility] [address] [id number], [place] [address]- 7420 Feb, [facility] [place] [facility] [address] [id number] [place] [address]- 8654 Feb, [facility] [place] [facility] [address] [id number] [place] [address]- 6165 Jan, [facility] [place] [facility] [address] [id number], [place] [address]- 7401 Jan, [facility] [place] [facility] [address] [id number], [place] [address]- 7452 Jan, [facility] [place] [facility] [address] [id number] [place] [address]- 2837 Dec, [facility] [place] [facility] [address] [id number], [place] [address]- 4856 Dec, [facility] [place] [facility] [address] [id number] [place] [address]- 7066 16 Nov, 2010 [facility] [place] [facility] [address] [facility] [id number] [place] [address] 2546 Oct, [facility] [address] [facility] [id number], [place] [address]- 9236 Oct, [facility] [address] [facility] [id number], [place] [address]- 8299 Oct, [facility] [address] [facility] [id number], [place] [address]- [address] Sep, [facility] [address] [facility] [id number], [place] [address]- 7653 Apr, [facility] [address] [facility] [id number], [place] [address]- 8559 Feb, [facility] [address] [facility] [id number], [place] [address]- 1366 Jan, IMMUNIZATIONS No Known Immunizations SOCIAL HISTORY Never Assessed REASON FOR VISIT FMLA paperwork questions PLAN OF CARE VITAL SIGNS MEDICATIONS No [...] COPD-[facility] 12/30/2016 [place]-last around 2006 or so. Hospitalization History [facility] for COPD x2 Mar 2017 Hospitalization History Upper GI bleed at apr 2017 Hospitalization History [facility]- COPD Exacerbation, diarrhea 05/23/2017 Hospitalization History COPD exacerbation-[facility] 06/13/17 Hospitalization History [facility] 09/09/2017 Hospitalization History COPD-[facility]--[facility] 11/2017
[2017-12-06 13:06] LABS: ALANINE AMINOTRANSFERASE 23 U/L (0-55); ALKALINE PHOSPHATASE 85 U/L (40-136); BILIRUBIN,TOTAL 0.3 MG/DL (0.1-1.0); BUN/CREATININE RATIO 15; CALCIUM 9.7 MG/DL (8.5-10.1); CARBON DIOXIDE 22 MMOL/L (21-32); CHLORIDE 108 MMOL/L (98-107); CREATININE SERUM 0.91 MG/DL (0.60-1.30); GFR ESTIMATED > 60; GLUCOSE 147 MG/DL (70-105); POTASSIUM 3.9 MMOL/L (3.6-5.0); SODIUM 141 MMOL/L (135-145); TOTAL PROTEIN 6.8 GM/DL (6.4-8.2)
--- OUTSIDE RECORDS SUMMARY | 2017-12-06 13:06 | XMS REPORT ---
Author Author ALIZA CARTER Organization [facility] Address [address] [place] [address] Care Team Providers Care Development Architect Name Role Phone ALIZA CARTER Unavailable PROBLEMS Type Condition ICD9-CM Code [id number] Code Onset Dates Condition Status SNOMED Code Problem Migraine without aura and without status migrainosus, not intractable G43.009 Active 094072593 Problem Chronic bronchitis, unspecified chronic bronchitis type J42 Active 68486903 Problem Other emphysema J43.8 Active 62453572 Problem Chronic obstructive pulmonary disease, unspecified COPD type J44.9 Active 31475404 Problem COPD with exacerbation J44.1 Active 220751687 Problem Diabetes E11.9 Active 962351226 Problem Methamphetamine use disorder, moderate, 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 Active 31985660 Problem Anxiety F41.9 Active 99991415 Problem Intractable cyclical vomiting with nausea G43.A1 Active 96261394 Problem Tobacco abuse Z72.0 Active 35031642 Problem Migraine G43.909 Active 72853872 Problem Examination of eyes and vision V72.0 Active 114802211 Problem 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 Active Problem Memory loss R41.3 Active 04287961 Problem Bipolar disorder, unspecified F31.9 Active 68349881 Problem TMJ (sprain of temporomandibular joint) S03.4XXA Active 14122040 Problem Bipolar disorder with depression F31.30 Active 41447788 Problem Chronic constipation K59.09 Active 572298412 Problem Generalized anxiety disorder F41.1 Active 80234813 ALLERGIES No Information ENCOUNTERS Encounter Location Date Diagnosis [facility] [address] [facility] [id number], [place] [address] 17 Nov, 2017 COPD with exacerbation J44.1 and Urinary tract infection without hematuria, site unspecified N39.0 [facility] [address] [facility] [id number], [place] [address] Nov, Chronic obstructive pulmonary disease, unspecified COPD type J44.9 [facility] [address] [address] Oct, [facility] [address] [address] Oct, [facility] [address] [address] Oct, [facility] [address], [place] [address] Oct, [facility] [address] [address] 269[address] Oct, Thrush B37.0 [facility] [address], [place] [address] Sep, COPD with exacerbation J44.1 and Anxiety F41.9 [facility] [address], [place] [address] Sep, [facility] [address], [place] [address] 06[address] Sep, [facility] [address], [place] [address] Sep, [facility] [address], [place] [address] Sep, Acute congestive heart failure, unspecified heart failure type I50.9 and Anxiety disorder, unspecified F41.9 [facility] [id number] [address] Sep, Heart failure, unspecified HF chronicity, unspecified heart failure type I50.9 [facility] [id number], [place] [address] 0[address] Sep, [facility] [address], [place] [address] Aug, Chronic obstructive pulmonary disease with acute exacerbation J44.1 [facility] [address] [facility] [id number], [place] [address] Aug, [facility] [address] [address] Aug, [facility] [address] [address] July, [facility] [address] [facility] [id number], [place] [address] July, [facility] [address] [place] [address] 71038- 9441 July, Diabetes E11.9 and Chronic obstructive pulmonary disease with acute exacerbation J44.1 [facility] [address], [place] [address] Jun, Chronic obstructive pulmonary disease with acute exacerbation J44.1 ; Diabetes E11.9 and Tobacco abuse Z72.0 [facility] [address], [place] [address] Jun, [facility] [address] [id number] [address] Jun, [facility] [address], [place] [address] 0[address] May, [facility] [address], [place] [address] May, [facility] [address], [place] [address] 17 May, 2017 [facility] [address] [address] 16 May, 2017 [facility] [address], [place] [address] 15 May, 2017 [facility] [address], [place] [address] May, Diarrhea, unspecified type R19.7 and Intractable cyclical vomiting with nausea G43.A1 [facility] [id number] [place] [address] 86228- 8706 May, [facility] [address] [address] 05 May, 2017 [facility] [address] [address]- [address] Apr, COPD exacerbation J44.1 ; Esophageal candidiasis B37.81 ; Other acute gastritis with hemorrhage K29.01 and Acute posthemorrhagic anemia D62 [place] [address] [address] Apr, Viral illness B34.9 and COPD exacerbation J44.1 [facility] [address] [address] Apr, Shortness of breath R06.02 and Pneumonia of both lower lobes due to infectious organism J18.9 [facility] [address] [address] Mar, COPD with acute exacerbation J44.1 [place] [address] [address]- 7225 Mar, Chronic obstructive pulmonary disease with acute exacerbation J44.1 and Diabetes E11.9 [facility] [id number] [place] [address] 40832- 4004 Mar, [facility] [id number] [place] [address] 80967- 0559 Mar, [facility] [address] [address] Mar, COPD exacerbation J44.1 [facility] [address] [address]- [address]80 09 Mar, 2017 [facility] [address] [address]- 1079 Mar, Migraine G43.909 ; Hypokalemia E87.6 and Type 2 diabetes mellitus without complications E11.9 [place] [address] [id number] [place] [address] 65681- 4797 Feb, [place] [address] [id number] [place] [address] 10730- 9974 Feb, [place] [address] [address]- [address] Feb, Methamphetamine use disorder, moderate, 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 ; Major depressive disorder, recurrent, moderate F33.1 ; Anxiety disorder, unspecified F41.9 and Tobacco abuse Z72.0 [place] [id number] [place] [address] 89870- 4918 Jan, Major depressive disorder, recurrent, moderate F33.1 [place] [address] [id number] [place] [address] 13391- 0884 Jan, [place] [address] [id number] [place] [address] 65314- 6933 Jan, [place] [id number] [place] [address] 83238- 6848 Jan, Major depressive disorder, recurrent, moderate F33.1 [place] [id number] [place] [address] 71700- 7071 Jan, Major depressive disorder, recurrent, moderate F33.1 ; Anxiety disorder, unspecified F41.9 ; Methamphetamine use disorder, moderate, 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 and Tobacco abuse Z72.0 [place] [id number] [place] [address] 12850- 3967 Jan, [place] [id number] [place] [address] 04425- 0907 06 Jan, 2017 Chronic obstructive pulmonary disease with acute exacerbation J44.1 and Diabetes E11.9 [place] [address] 18[address]- 0255 Jan, [facility] [address] [place] [address] 26765- 9524 Jan, [facility] [id number] [place] [address] 929932- 3351 Dec, Acute respiratory failure with hypoxia J96.01 ; Chronic bronchitis, unspecified chronic bronchitis type J42 and Tobacco use Z72.0 [facility] [id number] [place] [address] 88138- 9541 Dec, [facility] [address] [place] [address] [id number] Nov, Dental caries K02.9 and Dental examination Z01.20 [facility] [id number] [place] [address] 58641- 4831 Nov, Major depressive disorder, recurrent, moderate F33.1 ; Anxiety disorder, unspecified F41.9 and 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 [facility] [address] [place] [address] [id number] Oct, Dental examination Z01.20 [facility] [id number] [place] [address] 58323- 6039 Oct, [facility] [id number] [place] [address] 14132- 0598 Oct, Diabetes E11.9 and Thrush B37.0 [facility] [address] [place] [address] 57645- 4976 Oct, [facility] [id number] [place] [address] 32806- 5580 Oct, [facility] [id number] [place] [address] 95576- 9847 Oct, [facility] [address] [place] [address] 16037- 7810 Sep, Major depressive disorder, recurrent, moderate F33.1 ; Anxiety disorder, unspecified F41.9 and Bipolar disorder, unspecified F31.9 [facility] [address], [place] [address]- 1716 Sep, Acute exacerbation of chronic obstructive pulmonary disease (COPD) J44.1 and Migraine G43.909 [facility] [address] [place] [address] 37481- 5663 Sep, [facility] [id number] [place] [address] [id number] Sep, [facility] [id number] [place] [address] 05953- 9148 Sep, Acute exacerbation of chronic obstructive pulmonary disease (COPD) J44.1 [facility] [address] [place] [address] 53007 -8749 Sep, Acute exacerbation of chronic obstructive pulmonary disease (COPD) J44.1 [facility] [id number] [place] [address] 84478- 4765 Aug, [facility] [id number] [place] [address] 33164- 2580 Aug, Major depressive disorder, recurrent, moderate F33.1 ; Anxiety disorder, unspecified F41.9 and 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 [facility] [address] [place] [address] 42679- 9383 Aug, Wheezing R06.2 ; Non morbid obesity due to excess calories E66.09 ; Migraine without aura and without status migrainosus, not intractable G43.009 and Tobacco abuse Z72.0 [facility] [address] [place] [address] [id number] [phone] Aug, 2016 Encounter for dental examination Z01.20 [facility] [address] [place] [address] 68938- 3928 02 Aug, 2016 Major depressive disorder, recurrent, moderate F33.1 ; Anxiety disorder, unspecified F41.9 and 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 [facility] [address], [place] [address]- 5995 July, [facility] [id number] [place] [address] 39796- 2541 July, [facility] [id number] [place] [address] 51562- 6237 July, [facility] [id number] [place] [address] 64371- 1429 July, Diabetes E11.9 [facility] [id number] [place] [address] 71561- 0146 Jun, Major depressive disorder, recurrent, moderate F33.1 [facility] [address] [place] [address] 17911- 5938 Jun, Major depressive disorder, recurrent, moderate F33.1 ; 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 ; Generalized anxiety disorder F41.1 and Bipolar disorder, unspecified F31.9 [facility] [id number] [place] [address] 74953- 6309 Jun, Diabetes E11.9 ; Migraine G43.909 ; Thrush B37.0 and Wheezing R06.2 [facility] [address] [place] [address] [phone] Jun, Dental examination Z01.20 [facility] [id number] [place] [address] 37049- 6476 Jun, [facility] [address] [place] [address] 16457- 9589 Jun, Major depressive disorder, recurrent, moderate F33.1 ; Anxiety disorder, unspecified F41.9 and 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 [facility] [address] [place] [address] 28396- 8327 Jun, [facility] [id number] [place] [address] 17418- 7213 Jun, Wheezing R06.2 [facility] [address] [place] [address] [id number] Jun, Dental caries K02.9 [place] [id number] [place] [address] 15371- 0348 Jun, Major depressive disorder, recurrent, moderate F33.1 ; Anxiety disorder, unspecified F41.9 and 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 [place] [address] [id number] [place] [address] 57314- 5834 Jun, RLQ abdominal pain R10.31 ; Diabetes E11.9 ; Obesity, unspecified obesity severity, unspecified obesity type E66.9 ; Wheezing R06.2 and Abnormal urinalysis R82.[address] [address]- 3394 May, [address] [address]- 4511 May, Well woman exam Z01.419 ; Breast cancer screening Z12.39 ; Cervical cancer screening Z12.4 ; Urinary frequency R35.0 ; Edema, unspecified type R60.9 and Chronic constipation K59.09 [place] [id number] [place] [address] 41927- 8129 May, Major depressive disorder, recurrent, moderate F33.1 ; Anxiety disorder, unspecified F41.9 and 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 [facility] [address] [place] [address] [id number] May, Dental examination Z01.20 [place] [address] 73436- 2402 May, [place] [id number] [place] [address] 08520- 4408 May, [place] [address] 43028- 4610 May, Chronic constipation K59.09 [place] [address], [place] [address]- 1432 Apr, [place] [id number] [place] [address] 89423- 2475 Apr, Major depressive disorder, recurrent, moderate F33.1 ; Anxiety disorder, unspecified F41.9 and 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 [place] [id number] [place] [address] 88769- 2769 Apr, [place] [address] [place] [address] 59941- 4131 Mar, Major depressive disorder, recurrent, moderate F33.1 [place] [address] [place] [address] 01569- 2838 Mar, Major depressive disorder, recurrent, moderate F33.1 ; Generalized anxiety disorder F41.1 and Bipolar I disorder, most recent episode depressed with anxious distress F31.30 [place] [address], [place] [address]- 2926 Mar, Diabetes E11.9 ; Non morbid obesity due to excess calories E66.09 ; Breast cancer screening Z12.39 and Encounter for immunization Z23 [place] [address] [place] [address] 94996- 4688 Mar, Major depressive disorder, recurrent, moderate F33.1 ; Anxiety disorder, unspecified F41.9 and 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 [place] [address], [place] [address]- 0918 Mar, [place] [id number] [place] [address] 73795- 7963 Feb, Major depressive disorder, recurrent, moderate F33.1 ; Anxiety disorder, unspecified F41.9 and 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 [place] [id number] [place] [address] 84948- 2123 Feb, [facility] [id number] [place] [address] 18014- 8639 Feb, [facility] [id number] [place] [address] 22019- 0127 Jan, Major depressive disorder, recurrent, moderate F33.1 ; Generalized anxiety disorder F41.1 and Bipolar disorder, current episode depressed, severe, without psychotic features F31.4 [facility] [id number] [place] [address] 64169- 6790 18 Jan, 2016 Major depressive disorder, recurrent, moderate F33.1 ; Anxiety disorder, unspecified F41.9 and 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 [place] [address] [place] [address] 81275- 5049 16 Jan, 2016 Bronchitis J40 [place] [address] [place] [address] 41520- 4296 Jan, [facility] [id number] [place] [address] 73534- 2973 Jan, [facility] [address] [place] [address] 43960- 9404 Jan, Elbow injury, right, initial encounter S59.901A ; Multiple contusions T14.8 and Cervical strain, acute, initial encounter S16.1XXA [facility] [id number] [place] [address] 40829- 1415 Dec, Major depressive disorder, recurrent, moderate F33.1 ; Generalized anxiety disorder F41.1 and Bipolar disorder with depression F31.30 [facility] [id number] [place] [address] 05761- 3534 Dec, [facility] [id number] [place] [address] 07891- 7076 Dec, [facility] [id number] [place] [address] 99116- 6283 Dec, [facility] [address], [place] [address]- 8077 Dec, [facility] [address] [place] [address] 10670- 4782 Dec, Yeast infection B37.9 [facility] [address] [place] [address] 08886- 0293 Dec, Pneumonia of both lungs due to methicillin resistant Staphylococcus aureus (MRSA), unspecified part of lung J15.212 and Benzodiazepine overdose, accidental or unintentional, subsequent encounter T42.4X1D [place] [address] [place] [address] 99894- 7898 Dec, [place] [id number] [place] [address] 11429- 1362 Dec, [place] [address] [place] [address] 75451- 7400 Dec, Knee pain, left M25.562 and Edema, unspecified type R60.9 [place] [address] [place] [address] 54422- 1113 Dec, [place] [address] [place] [address] 42814- 5204 Dec, Anxiety disorder, unspecified F41.9 and Bipolar disorder, unspecified F31.9 [place] [address] [place] [address] 42425- 0705 Nov, Major depressive disorder, recurrent, moderate F33.1 ; Anxiety disorder, unspecified F41.9 and 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 [place] [address] [place] [address] 05176- 8879 Nov, [place] [address] [place] [address] 52751- 5746 Nov, Migraine without aura and without status migrainosus, not intractable G43.009 [place] [address] [place] [address] 15524- 0496 Nov, Migraine G43.909 [place] [address] [place] [address] 41307- 1992 Nov, [place] [address] [id number] [place] [address] 23705- 1472 Nov, Major depressive disorder, recurrent, moderate F33.1 ; Anxiety disorder, unspecified F41.9 and 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 [place] [address] [address] [place] [address] 71955- 4692 Oct, Chronic constipation K59.09 and Obesity, unspecified obesity severity, unspecified obesity type E66.9 [place] [address] [address] [place] [address] 98201- 6051 Oct, Obesity, unspecified obesity severity, unspecified obesity type E66.9 ; Chronic constipation K59.09 and Anxiety disorder, unspecified F41.9 [place] [address] [place] [address] 70692- 6369 Oct, [place] [id number] [place] [address] 05228- 2494 Sep, Diabetes E11.9 ; Edema, unspecified type R60.9 ; Varicose vein of leg I83.90 and Obesity, unspecified obesity severity, unspecified obesity type E66.9 [place] [id number] [place] [address] 34903- 7971 Sep, Edema, unspecified type R60.9 ; Diabetes E11.9 and Knee pain , left M25.562 [place] [id number] [place] [address] 31465- 8018 Sep, [place] [id number] [place] [address] 43586- 7137 Sep, [place] [id number] [place] [address] 38308- 5204 Sep, Major depressive disorder, recurrent, moderate F33.1 ; Generalized anxiety disorder F41.1 and Bipolar disorder, unspecified F31.9 [facility] [address] [place] [address] 51531- 2379 Aug, Chondromalacia of left knee M94.262 [facility] [id number] [place] [address] 67228- 2494 Aug, Major depressive disorder, recurrent, moderate F33.1 ; Anxiety disorder, unspecified F41.9 and 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 [facility] [address] [place] [address] 84026- 8079 Aug, [facility] [id number] [place] [address] 02955- 9277 Aug, Osteoarthritis of left knee M17.9 [facility] [id number] [place] [address] 96913- 4091 Aug, [facility] [address] [place] [address] 40450- 2837 July, Major depressive disorder, recurrent, moderate F33.1 ; Anxiety disorder, unspecified F41.9 and 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 [facility] [address], [place] [address]- 6515 July, [facility] [address] [id number] [place] [address]32- 4053 July, Chronic constipation K59.09 [facility] [id number], [place] [address] 1377 Jun, [facility] [address] [place] [id number] [place] [address] 13577- 2860 Jun, [facility] [id number], [place] [address] 3905 Jun, Osteoarthritis of left knee M17.9 [facility] [address] 01987- 7615 Jun, [place] [address] [address]- 3834 Jun, Generalized anxiety disorder F41.1 ; Bipolar disorder, unspecified F31.9 and Major depressive disorder, recurrent, moderate F33.1 [place] [address] 89163- 4239 Jun, Migraine G43.909 [place] [address] 75942- 5908 Jun, Left knee pain M25.562 ; Chronic constipation K59.09 ; Dry mouth R68.2 ; Yeast vaginitis B37.3 and Memory loss R41.3 [place] [address] 37947- 4333 Jun, [place] [address] [address]39- 1975 May, [place] [address] 03551- 2196 May, [place] [address] 17492- 1679 May, [place] [address] 35575- 4352 May, [place] [address] 98253- 0629 May, Acute bronchitis with COPD J44.0 ; Knee pain, left M25.562 and Encounter for tobacco use cessation counseling Z71.[address] 73736- 8048 May, [place] [address] 01532- 8347 Apr, Diabetes E11.9 ; TMJ (sprain of temporomandibular joint) S03.4XXA ; Tobacco abuse Z72.0 ; Migraine G43.909 and Anxiety F41.9 [facility] [id number] [place] [address] 46948- 6947 Apr, Generalized anxiety disorder F41.1 and Bipolar disorder, unspecified F31.9 [facility] [id number] [place] [address] 40328- 5686 Apr, Major depressive disorder, recurrent, moderate F33.1 ; Anxiety disorder, unspecified F41.9 and 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 [facility] [id number] [place] [address] 88347- 1536 Apr, [facility] [id number] [place] [address] 49698- 9031 Mar, [facility] [address] [id number] [place] [address] 06599- 4655 Feb, [facility] [id number] [place] [address] 36287- 4183 Feb, Major depressive disorder, recurrent, moderate F33.1 ; Anxiety disorder, unspecified F41.9 and 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 [facility] [id number] [place] [address] 81301- 3140 Feb, [facility] [id number] [place] [address] 75971- 7845 Feb, Generalized anxiety disorder F41.1 and Bipolar disorder, unspecified F31.9 [facility] [id number] [place] [address] 15873- 9791 Jan, [facility] [id number] [place] [address] 53224- 1164 Jan, [facility] [id number] [place] [address] 20238- 8274 Jan, Bipolar disorder, unspecified F31.9 and Generalized anxiety disorder F41.1 [facility] [id number] [place] [address] 15296- 9459 14 Dec, 2014 [facility] [address] 01922- 8546 Dec, Bipolar disorder, unspecified F31.9 and Generalized anxiety disorder F41.1 [facility] [address] [id number] [place] [address] 99293- 4880 Dec, Generalized anxiety disorder F41.1 and Major depressive disorder, recurrent, moderate F33.1 [facility] [address] [id number] [place] [address] 18805- 1074 Oct, Headache 784.0 ; Cough 786.2 ; Vomiting and diarrhea 787.03 and Dysuria 788.1 [facility] [address] [id number] [place] [address] 25916- 3602 Aug, [facility] [address] 19905- 0961 Aug, Headache 784.0 and Shortness of breath 786.05 [facility] [address] [place] [id number] [place] [address] 79823- 6463 Aug, [facility] [address] [id number] [place] [address] 21142- 0408 Aug, Migraine 346.90 [facility] [address] [address] [id number] [place] [address] 75437- 6648 Jun, [facility] [id number] [place] [address] 52414- 6880 Jun, [facility] [id number] [place] [address] 73528- 2171 May, [facility] [id number] [place] [address] 49159- 0031 May, [facility] [address] [id number] [place] [address] 49234- 6839 May, [facility] [place] [facility] [address] [id number] [place] [address]- 7018 May, [facility] [place] [facility] [address] [id number] [place] [address]- 5529 May, 2014 [facility] [place] [facility] [address] [id number] [place] [address]- 8539 May, 2014 [facility] [place] [facility] [address] [id number] [place] [address]- 0490 Apr, 2014 [facility] [place] [facility] [address] [id number] [place] [address]- 9769 Apr, 2014 [facility] [place] [facility] [address] [id number] [place] [address]- 4575 Apr, [facility] [place] [facility] [address] [facility] [id number] [place] [address]- 5680 Apr, [facility] [place] [facility] [address] [id number] [place] [address]- 1274 Apr, [facility] [place] [facility] [address] [id number] [place] [address]- 8436 Mar, [facility] [place] [facility] [address] [id number] [place] [address]- 5322 Mar, [facility] [place] [facility] [address] [facility] [id number] [place] [address]- 7485 Mar, [facility] [place] [facility] [address] [id number] [place] [address]- 9087 Mar, [facility] [place] [facility] [address] [id number] [place] [address]- 5487 Feb, [facility] [place] [facility] [address] [id number] [place] [address]- 1261 Feb, [facility] [place] [facility] [address] [id number] [place] 8465 Feb, [facility] [place] [facility] [address] [id number] [place] [address]- 2291 18 Feb, 2014 [facility] [place] [facility] [address] [id number] [place] [address]- 1256 Feb, [facility] [place] [facility] [address] [id number] [place] 2838 Feb, [facility] [place] [facility] [address] [id number] [place] [address]- 5859 Feb, [facility] [place] [facility] [address] [id number] [place] [address]- 9710 Feb, [facility] [place] [facility] [address] [id number] [place] [address]- 0464 Feb, [facility] [place] [facility] [address] [id number] [place] [address]- 8727 Feb, [facility] [place] [facility] [address] [id number] [place] [address]- 1380 Feb, [facility] [place] [facility] [address] [id number] [place] [address]- 3188 Feb, [facility] [place] [facility] [address] [id number] [place] [address]- 6637 Jan, [facility] [place] [facility] [address] [id number] [place] [address]- 5121 Jan, [facility] [place] [facility] [address] [id number] [place] [address]- 6675 Dec, [facility] [place] [facility] [address] [id number], [place] [address]- 9216 Dec, [facility] [place] [facility] [address] [id number] [place] [address]- 8704 Dec, [facility] [place] [facility] [address] [id number] [place] [address]- 5370 Dec, [facility] [place] [facility] [address] [id number] [place] [address]- 4661 Dec, [facility] [place] [facility] [address] [id number] [place] [address]- 7530 Dec, [facility] [place] [facility] [address] [id number] [place] [address]- 8380 Sep, [facility] [place] [facility] [address] [id number] [place] [address]- 0535 Sep, [facility] [place] [facility] [address] [id number] [place] [address]- 5140 Sep, [facility] [place] [facility] [address] [id number] [place] [address]- 4218 Sep, [facility] [place] [facility] [address] [id number] [place] [address]- 8700 Sep, [facility] [place] [facility] [address] [id number] [place] [address]- 1978 Sep, [facility] [place] [facility] [address] [id number] [place] [address]- 5091 Sep, [facility] [place] [facility] [address] [id number] [place] [address]- 5744 Sep, [facility] [place] [facility] [address] [id number] [place] [address]- 0551 Sep, [facility] [place] [facility] [address] [id number] [place] [address]- 0343 Sep, [facility] [place] [facility] [address] [id number] [place] [address]- 9152 Aug, [facility] [place] [facility] [address] [id number] [place] [address]- 9291 Aug, [facility] [place] [facility] [address] [id number] [place] [address]- 9349 Aug, [facility] [place] [facility] [address] [id number] [place] [address]- 7446 Aug, [facility] [place] [facility] [address] [id number] [place] 2283 Aug, [facility] [place] [facility] [address] [id number] [place] [address]- 7788 Aug, [facility] [place] [facility] [address] [id number] [place] [address]- 4373 Aug, [facility] [place] [facility] [address] [id number] [place] [address]- 4578 Aug, [facility] [place] [facility] [address] [id number] [place] [address]- 1841 Aug, [facility] [place] [facility] [address] [id number] [place] [address]- 1427 Aug, [facility] [place] [facility] [address] [id number] [place] [address]- 0502 Aug, [facility] [place] [facility] [address] [id number] [place] [address]- 4194 Aug, [facility] [place] [facility] [address] [id number] [place] [address]- 0590 Aug, [facility] [place] [facility] [address] [id number] [place] [address]- 6839 July, [facility] [place] [facility] [address] [id number] [place] [address]- 6080 July, [facility] [place] [facility] [address] [id number] [place] [address]- 6353 July, [facility] [place] [facility] [address] [id number] [place] [address]- 8916 July, [facility] [place] [facility] [address] [id number] [place] [address]- 9642 July, [facility] [place] [facility] [address] [id number] [place] [address]- 9907 July, [facility] [place] [facility] [address] [id number] [place] [address]- 6015 July, [facility] [place] [facility] [address] [id number] [place] [address]- 1499 23 Jun, 2013 [facility] [place] [facility] [address] [id number] [place] [address]- 7340 23 Jun, 2013 [facility] [place] [facility] [address] [id number] [place] [address]- 3174 18 Jun, 2013 [facility] [place] [facility] [address] [id number] [place] [address]- 3110 16 Jun, 2013 [facility] [place] [facility] [address] [id number] [place] [address]- 8232 16 Jun, 2013 [facility] [place] [facility] [address] [id number] [place] [address]- 7375 08 Jun, 2013 [facility] [place] [facility] [address] [id number] [place] [address]- 2279 08 Jun, 2013 [facility] [place] [facility] [address] [id number] [place] [address]- 1870 17 May, 2013 [facility] [place] [facility] [address] [id number] [place] [address]- 0467 17 May, 2013 [facility] [place] [facility] [address] [id number] [place] [address]- 7249 14 May, 2013 [facility] [place] [facility] [address] [id number] [place] [address]- 8022 14 May, 2013 [facility] [place] [facility] [address] [id number] [place] [address]- 8386 13 May, 2013 [facility] [place] [facility] [address] [id number] [place] [address]- 4099 13 May, 2013 [facility] [place] [facility] [address] [id number] [place] [address]- 0224 10 May, 2013 [facility] [place] [facility] [address] [id number] [place] [address]- 5771 10 May, 2013 [facility] [place] [facility] [address] [id number] [place] [address]- 6933 07 May, 2013 [facility] [place] [facility] [address] [id number] [place] [address]- 6213 Apr, [facility] [place] [facility] [address] [id number] [place] [address]- 8615 Apr, [facility] [place] [facility] [address] [id number] [place] [address]- 6215 Apr, [facility] [place] [facility] [address] [id number] [place] [address]- 8863 Apr, [facility] [place] [facility] [address] [id number] [place] [address]- 7113 Apr, [facility] [place] [facility] [address] [id number] [place] [address]- 1819 Apr, [facility] [place] [facility] [address] [id number] [place] [address]- 2886 Apr, [facility] [place] [facility] [address] [id number] [place] [address]- 6610 Apr, [facility] [place] [facility] [address] [id number] [place] [address]- 3363 Apr, [facility] [place] [facility] [address] [facility] [id number] [place] [address]- 0981 Apr, [facility] [place] [facility] [address] [id number], [place] [address]- 1025 Mar, [facility] [place] [facility] [address] [id number], [place] [address]- 5192 Mar, [facility] [place] [facility] [address] [id number] [place] [address]- 6936 Mar, [facility] [place] [facility] [address] [id number] [place] [address]- 2367 Mar, [facility] [place] [facility] [address] [facility] [id number] [place] [address]- 6649 Mar, [facility] [place] [facility] [address] [id number] [place] [address]- 6734 07 Mar, 2013 [facility] [address] [id number] [place] [address]- 9749 Mar, [facility] [place] [facility] [address] [id number] [place] [address]- 7502 Mar, [facility] [address] [id number] [place] [address]- 5102 Feb, [facility] [place] [facility] [address] [id number] [place] [address]- 4196 Feb, [facility] [place] [facility] [address] [id number] [place] [address]- 4073 Jan, [facility] [place] [facility] [address] [id number] [place] [address]- 4187 18 Jan, 2013 [facility] [place] [facility] [address] [id number] [place] [address]- 6651 15 Jan, 2013 [facility] [place] [facility] [address] [id number] [place] [address]- 4087 15 Jan, 2013 [facility] [place] [facility] [address] [id number] [place] [address]- 2936 Jan, [facility] [place] [facility] [address] [facility] [id number] [place] [address]- 3537 Jan, [facility] [place] [facility] [address] [id number] [place] [address]- 8532 05 Jan, 2013 [facility] [place] [facility] [address] [id number], [place] [address]- 4718 05 Jan, 2013 [facility] [place] [facility] [address] [id number] [place] [address]- 2982 13 Dec, 2012 [facility] [place] [facility] [address] [id number] [place] [address]- 7916 10 Dec, 2012 [facility] [place] [facility] [address] [id number], [place] [address]- 6601 10 Dec, 2012 [facility] [place] [facility] [address] [id number] [place] [address]- 7705 20 Nov, 2012 [facility] [place] [facility] [address] [id number] [place] [address]- 7754 Nov, [facility] [place] [facility] [address] [id number] [place] [address]- 3667 Nov, [facility] [place] [facility] [address] [id number] [place] [address]- 6284 Nov, [facility] [place] [facility] [address] [id number] [place] [address]- 4795 Nov, [facility] [place] [facility] [address] [id number] [place] [address]- 1704 Nov, [facility] [place] [facility] [address] [id number] [place] [address]- 5936 Oct, [facility] [place] [facility] [address] [id number] [place] [address]- 9441 Oct, [facility] [place] [facility] [address] [id number] [place] [address]- 6599 Sep, [facility] [place] [facility] [address] [id number] [place] [address]- 1869 Sep, [facility] [place] [facility] [address] [id number] [place] [address]- 7852 Sep, [facility] [place] [facility] [address] [id number] [place] [address]- 4988 Sep, [facility] [place] [facility] [address] [id number] [place] [address]- 6013 Sep, [facility] [place] [facility] [address] [id number] [place] [address]- 9238 Sep, [facility] [place] [facility] [address] [id number] [place] [address]- 3168 Sep, [facility] [place] [facility] [address] [id number] [place] [address]- 5078 14 Aug, 2012 [facility] [address] [id number] [place] [address]- 3414 14 Aug, 2012 [facility] [place] [facility] [address] [id number] [place] [address]- 1212 13 Aug, 2012 [facility] [place] [facility] [address] [id number] [place] [address]- 4136 12 Aug, 2012 [facility] [place] [facility] [address] [id number] [place] [address]- 5373 Aug, [facility] [place] [facility] [address] [id number] [place] [address]- 0976 Aug, [facility] [place] [facility] [address] [id number] [place] [address]- 7317 July, [facility] [place] [facility] [address] [id number] [place] [address]- 1974 July, [facility] [place] [facility] [address] [id number] [place] [address]- 7656 July, [facility] [place] [facility] [address] [id number] [place] [address]- 4198 July, [facility] [place] [facility] [address] [id number] [place] [address]- 3885 July, [facility] [place] [facility] [address] [id number] [place] [address]- 8433 July, [facility] [place] [facility] [address] [id number] [place] [address]- 8482 Jun, [facility] [place] [facility] [address] [id number] [place] [address]- 9192 Jun, [facility] [place] [facility] [address] [id number] [place] [address]- 1685 15 Jun, 2012 [facility] [place] [facility] [address] [id number] [place] [address]- 6920 Jun, [facility] [place] [facility] [address] [id number] [place] [address]- 6052 Jun, [facility] [address] [id number] [place] [address]- 3403 Jun, [facility] [place] [facility] [address] [id number] [place] [address]- 5438 Jun, [facility] [place] [facility] [address] [id number] [place] [address]- 2580 May, [facility] [place] [facility] [address] [id number] [place] [address]- 0671 May, [facility] [place] [facility] [address] [id number] [place] [address]- 3631 26 Apr, 2012 [facility] [place] [facility] [address] [facility] [id number] [place] [address]- 1497 Apr, [facility] [place] [facility] [address] [facility] [id number] [place] [address]- 0[address] Apr, [facility] [place] [facility] [address] [id number] [place] [address] Apr, [facility] [place] [facility] [address] [facility] [id number] [place] [address] Apr, [facility] [place] [facility] [address] [facility] [id number] [place] [address] 08 Apr, 2012 [facility] [place] [facility] [address] [facility] [id number], [place] [address] Apr, [facility] [place] [facility] [address] [facility] [id number] [place] [address] Apr, [facility] [place] [facility] [address] [facility] [id number] [place] [address] Apr, [facility] [place] [facility] [address] [facility] [id number] [place] [address] Apr, [facility] [place] [facility] [address] [facility] [id number], [place] [address] Apr, [facility] [address] [id number] [place] [address] Mar, [facility] [address] [id number] [place] [address] Mar, [facility] [address] [id number] [place] [address]83 Mar, [facility] [address] [id number] [place] [address]958 Mar, [facility] [address] [id number] [place] [address]798 Mar, [facility] [address] [id number] [place] [address] Mar, [facility] [address] [id number] [place] [address] Mar, [facility] [address] [id number] [place] [address] Mar, [facility] [address] [id number] [place] [address] Mar, [facility] [address] [id number] [place] [address] Mar, [facility] [address] [id number], [place] [address] Mar, [facility] [address] [id number] [place] [address]57 Mar, [facility] [address] [id number] [place] [address]- 5689 Mar, [facility] [address] [id number] [place] [address] Feb, [facility] [address] [id number] [place] [address] Feb, [facility] [place] [facility] [address] [id number] [place] [address] 18 Feb, 2012 [facility] [place] [facility] [address] [id number] [place] [address] 18 Feb, 2012 [facility] [place] [facility] [address] [id number] [place] [address] Feb, [facility] [place] [facility] [address] [id number] [place] [address]- [address] Feb, [facility] [place] [facility] [address] [id number] [place] [address]- 30[address] Feb, [facility] [place] [facility] [address] [id number] [place] [address] Feb, [facility] [place] [facility] [address] [id number] [place] [address] Feb, [facility] [place] [facility] [address] [id number] [place] [address]14 Feb, [facility] [place] [facility] [address] [id number] [place] [address] 65[address] Feb, [facility] [place] [facility] [address] [id number] [place] [address]- [address] Feb, [facility] [place] [facility] [address] [id number] [place] [address]- [address] Feb, [facility] [place] [facility] [address] [id number] [place] [address]- [address] Feb, [facility] [place] [facility] [address] [id number] [place] [address] Feb, [facility] [place] [facility] [address] [id number] [place] [address]- [address] Jan, [facility] [place] [facility] [address] [id number] [place] [address] Jan, [facility] [place] [facility] [address] [id number] [place] [address]- [address]179 Jan, [facility] [place] [facility] [address] [id number] [place] [address]- 70[address] Jan, [facility] [place] [facility] [address] [id number] [place] [address]- [address] Dec, [facility] [place] [facility] [address] [id number] [place] [address]- 4668 Dec, [facility] [place] [facility] [address] [id number] [place] [address]- 44[address] Dec, [facility] [place] [facility] [address] [id number] [place] [address]- [address] Dec, [facility] [place] [facility] [address] [id number] [place] [address]- [address]793 Dec, [facility] [place] [facility] [address] [id number] [place] [address]- [address] Dec, [facility] [place] [facility] [address] [id number], [place] [address] Dec, [facility] [place] [facility] [address] [id number] [place] [address]- [address] Dec, [facility] [place] [facility] [address] [id number], [place] [address]- [address] Dec, [facility] [place] [facility] [address] [id number], [place] [address] Dec, [facility] [place] [facility] [address] [id number], [place] [address] 1346 Dec, [facility] [place] [facility] [address] [id number] [place] [address]- 3949 Nov, [facility] [place] [facility] [address] [id number] [address] 24 Nov, 2011 [facility] [place] [facility] [address] [id number], [place] [address] 20 Nov, 2011 [facility] [place] [facility] [address] [id number] [place] [address]- 101[address] 19 Sep, 2011 [facility] [place] [facility] [address] [id number] [place] [address]46 17 Sep, 2011 [facility] [place] [facility] [address] [id number] [place] [address] 2546 16 Sep, 2011 [facility] [place] [facility] [address] [id number] [place] [address] 2546 14 Sep, 2011 [facility] [place] [facility] [address] [id number] [place] [address]46 13 Sep, 2011 [facility] [place] [facility] [address] [id number] [place] [address] 12 Sep, 2011 [facility] [place] [facility] [address] [id number] [place] [address] 2546 07 Sep, 2011 [facility] [place] [facility] [address] [id number] [place] [address] 06 Sep, 2011 [facility] [place] [facility] [address] [id number] [place] [address] 2543 06 Sep, 2011 [facility] [place] [facility] [address] [id number] [place] [address] 05 Sep, 2011 [facility] [place] [facility] [address] [id number] [place] [address]44 29 Oct, 2011 [facility] [place] [facility] [address] [id number] [place] [address] 2546 29 Oct, 2011 [facility] [place] [facility] [address] [id number] [place] [address] 2541 28 Oct, 2011 [facility] [place] [facility] [address] [id number] [place] [address] 2548 28 Oct, 2011 [facility] [place] [facility] [address] [id number] [place] [address]46 23 Oct, 2011 [facility] [place] [facility] [address] [id number] [place] [address] 77[address] Oct, [facility] [place] [facility] [address] [id number] [place] [address] Oct, [facility] [place] [facility] [address] [id number] [place] [address] Oct, [facility] [place] [facility] [address] [id number] [place] [address]96 Oct, [facility] [place] [facility] [address] [id number] [place] [address] Oct, [facility] [place] [facility] [address] [id number] [place] [address] Oct, [facility] [place] [facility] [address] [id number] [place] [address] Sep, [facility] [place] [facility] [address] [id number] [place] [address] 1394 Sep, [facility] [place] [facility] [address] [id number] [place] [address] 3926 Sep, [facility] [place] [facility] [address] [id number] [place] [address] Sep, [facility] [place] [facility] [address] [id number] [place] [address] Sep, [facility] [place] [facility] [address] [id number] [place] [address] 270[address] Sep, [facility] [place] [facility] [address] [id number] [place] [address] 48[address] Aug, [facility] [place] [facility] [address] [id number] [place] [address] July, [facility] [place] [facility] [address] [id number] [place] [address] July, [facility] [place] [facility] [address] [id number] [place] [address] Jun, [facility] [place] [facility] [address] [id number] [place] [address] 8415 Jun, [facility] [place] [facility] [address] [id number] [place] [address]- 8077 11 Jun, 2011 [facility] [place] [facility] [address] [id number] [place] [address]- [address]27 Jun, [facility] [place] [facility] [address] [id number] [place] [address]- 9854 Jun, [facility] [place] [facility] [address] [id number] [place] [address]- 9027 Jun, [facility] [place] [facility] [address] [id number] [place] [address] 8183 Jun, [facility] [place] [facility] [address] [id number] [place] [address]- 2332 Jun, [facility] [place] [facility] [address] [id number] [place] [address]- 0729 Jun, [facility] [place] [facility] [address] [id number] [place] [address]- 1207 Jun, [facility] [place] [facility] [address] [id number] [place] [address]- 2064 Jun, [facility] [place] [facility] [address] [id number] [place] [address]- [address]852 May, [facility] [place] [facility] [address] [id number] [place] [address]- 7432 16 May, 2011 [facility] [place] [facility] [address] [id number] [place] [address]- 1661 14 May, 2011 [facility] [place] [facility] [address] [id number] [place] [address]- 5781 06 May, 2011 [facility] [place] [facility] [address] [id number] [place] [address]- 1342 Apr, [facility] [place] [facility] [address] [id number] [place] [address]- 3325 Apr, [facility] [place] [facility] [address] [id number] [place] [address]- 9713 Apr, [facility] [address] [id number] [place] [address] 9616 Apr, [facility] [place] [facility] [address] [id number] [place] [address]- 3426 Apr, [facility] [place] [facility] [address] [id number] [place] [address] 7746 Apr, [facility] [place] [facility] [address] [id number] [place] [address]- 8294 Apr, [facility] [place] [facility] [address] [id number] [place] [address]- 7267 Apr, [facility] [address] [id number] [place] [address] 8602 Mar, [facility] [address] [id number] [place] [address]- 7678 Mar, [facility] [place] [facility] [address] [id number] [place] [address]- 8741 Mar, [facility] [place] [facility] [address] [id number] [place] [address]- 1731 Mar, [facility] [place] [facility] [address] [id number] [place] [address]- 4193 17 Mar, 2011 [facility] [place] [facility] [address] [id number] [place] [address]- 7112 Mar, [facility] [place] [facility] [address] [id number] [place] [address]- 8161 Mar, [facility] [place] [facility] [address] [id number] [place] [address]- 6315 Mar, [facility] [place] [facility] [address] [id number] [place] [address]- 9154 Mar, [facility] [place] [facility] [address] [id number] [place] [address]- 69[address] Mar, [facility] [place] [facility] [address] [id number] [place] [address]- 4569 Mar, [facility] [place] [facility] [address] [id number] [place] [address]- 4604 Mar, [facility] [place] [facility] [address] [id number] [place] [address]- 8748 Mar, [facility] [place] [facility] [address] [id number] [place] [address]- 9237 Mar, [facility] [place] [facility] [address] [id number] [place] [address]- 4465 Mar, [facility] [place] [facility] [address] [id number] [place] [address]- 5047 Mar, [facility] [place] [facility] [address] [id number] [place] [address]- 5644 Feb, [facility] [place] [facility] [address] [id number], [place] [address] 8080 Feb, [facility] [place] [facility] [address] [id number] [place] [address]- 7922 Feb, [facility] [place] [facility] [address] [id number] [place] [address]- 9605 Jan, [facility] [place] [facility] [address] [id number], [place] [address]- 85[address] Jan, [facility] [place] [facility] [address] [id number], [place] [address] Jan, [facility] [place] [facility] [address] [id number] [place] [address]- 4472 Dec, [facility] [place] [facility] [address] [id number], [place] [address]- 1149 Dec, [facility] [place] [facility] [address] [id number] [place] [address]- 3043 16 Nov, 2010 [facility] [place] [facility] [address] [facility] [id number] [place] [address] Oct, [facility] [address] [facility] [id number][place] [address] Oct, [facility] [address] [facility] [id number], [place] [address]- [address] Oct, [facility] [address] [facility] [id number], [place] [address]- 0918 Sep, [facility] [address] [facility] [id number], [place] [address]- [address] Apr, [facility] [address] [facility] [id number], [place] [address]- [address] Feb, [facility] [address] [facility] [id number], [place] [address]- [address] Jan, IMMUNIZATIONS No Known Immunizations SOCIAL HISTORY Never Assessed REASON FOR VISIT [place] [facility] [place] [facility] PL[facility] CARE VITAL SIGNS MEDICATIONS No [...] 2/2 Benzos OD, pneumonia MRSA, MAYRA, Hypokalemia-- [facility] 12/20/2015 Hospitalization History COPD exacerbation, Asthma-[facility] 09/21/16 Hospitalization History COPD-[facility] 12/30/2016 Hospitalization History [facility]-last around 2006 or so. Hospitalization History [facility] for COPD x2 Mar 2017 Hospitalization History Upper GI bleed at apr 2017 Hospitalization History [facility] [place], operated by [facility]- COPD Exacerbation, diarrhea 05/23/2017 Hospitalization History COPD exacerbation-[facility] 06/13/17 Hospitalization History CHF 09/09/2017 Hospitalization History COPD-UTI--[facility] 11/2017
--- OUTSIDE RECORDS SUMMARY | 2017-12-06 13:07 | XMS REPORT ---
Author Author ALIZA CARTER [facility] Address [address] [place] [address] Care Team Providers Care Accountant Machine Processing Name Role Phone ALIZA CARTER Unavailable PROBLEMS Type Condition ICD9-CM Code PFZ18-EU Code Onset Dates Condition Status SNOMED Code Problem Migraine without aura and without status migrainosus, not intractable G43.009 Active 286274070 Problem Chronic bronchitis, unspecified chronic bronchitis type J42 Active 82746652 Problem Other emphysema J43.8 Active 50510537 Problem Chronic obstructive pulmonary disease, unspecified COPD type J44.9 Active 88655566 Problem COPD with exacerbation J44.1 Active 357597455 Problem Diabetes E11.9 Active 079293305 Problem Methamphetamine use disorder, moderate, 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 Active 08377168 Problem Anxiety F41.9 Active 95612176 Problem Intractable cyclical vomiting with nausea G43.A1 Active 74777312 Problem Tobacco abuse Z72.0 Active 72217822 Problem Migraine G43.909 Active 99399197 Problem Examination of eyes and vision V72.0 Active 327415378 Problem 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 Active Problem Memory loss R41.3 Active 46349289 Problem Bipolar disorder, unspecified F31.9 Active 85080367 Problem TMJ (sprain of temporomandibular joint) S03.4XXA Active 56534076 Problem Bipolar disorder with depression F31.30 Active 83000603 Problem Chronic constipation K59.09 Active 259338332 Problem Generalized anxiety disorder F41.1 Active 83834746 ALLERGIES Substance Reaction Event Type Date Status amitriptyline OD on medication, causes parasonias Non Drug Allergy Sep, Active Buspar 10 Mg Tablet made legs shaky Non Drug Allergy Sep, Active Benzodiazepines NARC ALERT Broke narc contract Non Drug Allergy Sep Active Narcotic NARC ALERT Broke Narc contract Non Drug Allergy Sep, Active ENCOUNTERS Encounter Location Date Diagnosis [facility] [address], [place] [address] Nov, [facility] [address], [place] [address] Nov, Chronic obstructive pulmonary disease, unspecified COPD type J44.9 [facility] [id number] [address] Oct, [facility] [id number], [place] [address] Oct, [facility] [id number] [place] [address] 04952- 8334 Oct, [facility] [id number] [place] [address] 16842- 2420 Oct, [facility] [id number] [place] [address] 98107- 5046 Oct, Thrush B37.0 [facility] [id number], [place] [address] Sep, COPD with exacerbation J44.1 and Anxiety F41.9 [facility] [address], [place] [address] Sep, [facility] [address], [place] [address] 0847 Sep, [facility] [address], [place] [address] 5[address] Sep, [facility] [address], [place] [address] 9568 Sep, Acute congestive heart failure, unspecified heart failure type I50.9 and Anxiety disorder, unspecified F41.9 [facility] [address], [place] [address] Sep, Heart failure, unspecified HF chronicity, unspecified heart failure type I50.9 [facility] [address] [facility] [id number], [place] [address] Sep, [facility] [address], [place] [address] 8[address] Aug, Chronic obstructive pulmonary disease with acute exacerbation J44.1 [facility] [address] [facility] [id number], [place] [address] Aug, [facility] [address] [facility] [id number], [place] [address] 0668 Aug, [facility] [address] [facility] [id number], [place] [address] 6[address] July, [facility] [address], [place] [address] 1648 July, [facility] [address] [place] [address] 50698- 9588 July, Diabetes E11.9 and Chronic obstructive pulmonary disease with acute exacerbation J44.1 [facility] [address], [place] [address] 8674 Jun, Chronic obstructive pulmonary disease with acute exacerbation J44.1 ; Diabetes E11.9 and Tobacco abuse Z72.0 [facility] [address], [place] [address] 7244 Jun, [facility] [address], [place] [address] 54[address] Jun, [facility] [address], [place] [address] 9336 May, [facility] [address], [place] [address] 2977 May, [facility] [address], [place] [address] May, [facility] [address], [place] [address] 2980 May, [facility] [id number] [place] [address] 50647- 3811 15 May, 2017 [facility] [address] [address]- 7604 14 May, 2017 Diarrhea, unspecified type R19.7 and Intractable cyclical vomiting with nausea G43.A1 [facility] [address] [address]- 5367 12 May, 2017 [facility] [id number] [place] [address] 44533- 3552 05 May, 2017 [facility] [address] 83007- 4221 28 Apr, 2017 COPD exacerbation J44.1 ; Esophageal candidiasis B37.81 ; Other acute gastritis with hemorrhage K29.01 and Acute posthemorrhagic anemia D62 [facility] [facility] [address] 15648- 3268 Apr, Viral illness B34.9 and COPD exacerbation J44.1 [facility] [id number] [place] [address] 60116 -4704 Apr, Shortness of breath R06.02 and Pneumonia of both lower lobes due to infectious organism J18.9 [facility] [id number] [place] [address] 59169 -2764 Mar, COPD with acute exacerbation J44.1 [facility] [id number] [place] [address] 93123- 6325 Mar, Chronic obstructive pulmonary disease with acute exacerbation J44.1 and Diabetes E11.9 [facility] [id number] [place] [address] 04382- 5910 Mar, [facility] [id number] [place] [address] 54748- 7389 Mar, [facility] [id number] [place] [address] 40923 -9261 Mar, COPD exacerbation J44.1 [facility] [address] [place] [address] 92385- 0137 Mar, [facility] [id number] [place] [address] 84510- 5680 Mar, Migraine G43.909 ; Hypokalemia E87.6 and Type 2 diabetes mellitus without complications E11.9 [facility] [id number] [place] [address] 47707- 6225 Feb, [facility] [id number] [place] [address] 98912- 7234 Feb, [facility] [id number] [place] [address] 06106- 1325 Feb, Methamphetamine use disorder, moderate, 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 ; Major depressive disorder, recurrent, moderate F33.1 ; Anxiety disorder, unspecified F41.9 and Tobacco abuse Z72.0 [facility] [address] [place] [address] 16620- 5190 30 Jan, 2017 Major depressive disorder, recurrent, moderate F33.1 [facility] [address] [place] [address] 54705- 5885 16 Jan, 2017 [facility] [address] [place] [address] 48786- 8861 14 Jan, 2017 [facility] [address] [place] [address] 08499- 8415 Jan, Major depressive disorder, recurrent, moderate F33.1 [facility] [address] [place] [address] 72730- 4842 Jan, Major depressive disorder, recurrent, moderate F33.1 ; Anxiety disorder, unspecified F41.9 ; Methamphetamine use disorder, moderate, 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 and Tobacco abuse Z72.0 [facility] [address], [place] [address]- 6059 07 Jan, 2017 [facility] [id number] [place] [address] 91149- 0441 Jan, Chronic obstructive pulmonary disease with acute exacerbation J44.1 and Diabetes E11.9 [facility] [id number] [place] [address] 58830- 1525 Jan, [facility] [id number] [place] [address] 37677- 8241 Jan, [facility] [id number] [place] [address] 81118- 2905 Dec, Acute respiratory failure with hypoxia J96.01 ; Chronic bronchitis, unspecified chronic bronchitis type J42 and Tobacco use Z72.0 [facility] [id number] [place] [address] 03966- 3189 Dec, [facility] [address] [id number] Nov, Dental caries K02.9 and Dental examination Z01.20 [facility] [id number] [place] [address] 07832- 2350 Nov, Major depressive disorder, recurrent, moderate F33.1 ; Anxiety disorder, unspecified F41.9 and 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 [facility] [id number] [place] [address] [id number] Oct, Dental examination Z01.20 [facility] [id number] [place] [address] 56272- 1582 Oct, [facility] [id number] [place] [address] 43999- 0395 Oct, Diabetes E11.9 and Thrush B37.0 [facility] [id number] [place] [address] 25096- 6988 Oct, [facility] [id number] [place] [address] 69488- 1057 Oct, [facility] [id number] [place] [address] 00376- 1081 Oct, [facility] [address] [place] [address] 31737- 0450 Sep, Major depressive disorder, recurrent, moderate F33.1 ; Anxiety disorder, unspecified F41.9 and Bipolar disorder, unspecified F31.9 [facility] [address] [place] [address] 49597- 7999 Sep, Acute exacerbation of chronic obstructive pulmonary disease (COPD) J44.1 and Migraine G43.909 [facility] [id number] [place] [address] 74836- 1758 Sep, [facility] [address] [id number] Sep, [facility] [id number] [place] [address] 01815- 0610 Sep, Acute exacerbation of chronic obstructive pulmonary disease (COPD) J44.1 [facility] [id number] [place] [address] 15998 -6641 Sep, Acute exacerbation of chronic obstructive pulmonary disease (COPD) J44.1 [facility] [id number] [place] [address] 22972- 5428 Aug, [facility] [id number] [place] [address] 33555- 3156 Aug, Major depressive disorder, recurrent, moderate F33.1 ; Anxiety disorder, unspecified F41.9 and 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 [facility] [address] [place] [address] 01700- 8106 Aug, Wheezing R06.2 ; Non morbid obesity due to excess calories E66.09 ; Migraine without aura and without status migrainosus, not intractable G43.009 and Tobacco abuse Z72.0 [facility] [address] [place] [address] [id number] 14 Aug, 2016 Encounter for dental examination Z01.20 [facility] [address], [place] [address]- 1438 Aug, Major depressive disorder, recurrent, moderate F33.1 ; Anxiety disorder, unspecified F41.9 and 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 [facility] [id number] [place] [address] 25532- 5084 July, [facility] [id number] [place] [address] 72183- 1121 July, [facility] [id number] [place] [address] 32551- 7947 July, [facility] [id number] [place] [address] 80480- 2054 July, Diabetes E11.9 [facility] [id number] [place] [address] 99891- 0242 Jun, Major depressive disorder, recurrent, moderate F33.1 [facility] [id number] [place] [address] 01576- 2984 Jun, Major depressive disorder, recurrent, moderate F33.1 ; 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 ; Generalized anxiety disorder F41.1 and Bipolar disorder, unspecified F31.9 [facility] [address] [place] [address] 42749- 8398 Jun, Diabetes E11.9 ; Migraine G43.909 ; Thrush B37.0 and Wheezing R06.2 [facility] [address] [place] [address] [id number] Jun, Dental examination Z01.20 [facility] [id number] [place] [address] 00622- 1582 Jun, [facility] [id number] [place] [address] 37486- 7572 Jun, Major depressive disorder, recurrent, moderate F33.1 ; Anxiety disorder, unspecified F41.9 and 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 [facility] [address] [place] [address] 65843- 9772 Jun, [facility] [id number] [place] [address] 64534- 6023 Jun, Wheezing R06.2 [facility] [id number] [place] [address] [id number] Jun, Dental caries K02.9 [facility] [address] 01962- 7247 Jun, Major depressive disorder, recurrent, moderate F33.1 ; Anxiety disorder, unspecified F41.9 and 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 [facility] [id number] [place] [address] 55762- 0367 Jun, RLQ abdominal pain R10.31 ; Diabetes E11.9 ; Obesity, unspecified obesity severity, unspecified obesity type E66.9 ; Wheezing R06.2 and Abnormal urinalysis R82.90 [facility] [id number] [place] [address] 27727- 7975 May, [facility] [id number] [place] [address] 28003- 5479 May, Well woman exam Z01.419 ; Breast cancer screening Z12.39 ; Cervical cancer screening Z12.4 ; Urinary frequency R35.0 ; Edema, unspecified type R60.9 and Chronic constipation K59.09 [facility] [id number] [place] [address] 33555- 5406 May, Major depressive disorder, recurrent, moderate F33.1 ; Anxiety disorder, unspecified F41.9 and 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 [facility] [id number] [place] [address] [phone] May, Dental examination Z01.20 [facility] [address] 23304- 8537 May, [facility] [address] [place] [address] 57338- 6392 May, [facility] [id number] [place] [address] 48539- 6939 May, Chronic constipation K59.09 [facility] [id number] [place] [address] 74820- 3374 Apr, [facility] [id number] [place] [address] 06651- 1910 Apr, Major depressive disorder, recurrent, moderate F33.1 ; Anxiety disorder, unspecified F41.9 and 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 [facility] [id number] [place] [address] 66154- 3797 Apr, [facility] [id number] [place] [address] 80677- 8480 Mar, Major depressive disorder, recurrent, moderate F33.1 [facility] [id number] [place] [address] 36155- 5508 Mar, Major depressive disorder, recurrent, moderate F33.1 ; Generalized anxiety disorder F41.1 and Bipolar I disorder, most recent episode depressed with anxious distress F31.30 [facility] [address] [place] [address] 13750- 7936 Mar, Diabetes E11.9 ; Non morbid obesity due to excess calories E66.09 ; Breast cancer screening Z12.39 and Encounter for immunization Z23 [facility] [id number] [place] [address] 59571- 7940 Mar, Major depressive disorder, recurrent, moderate F33.1 ; Anxiety disorder, unspecified F41.9 and 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 [facility] [address] [place] [address] 44594- 2403 Mar, [facility] [address] 89440- 8107 Feb, Major depressive disorder, recurrent, moderate F33.1 ; Anxiety disorder, unspecified F41.9 and 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 [facility] [id number] [place] [address]- 4642 Feb, [facility] [id number] [place] [address] 238657- 4866 Feb, [facility] [address] 055383- 3577 Jan, Major depressive disorder, recurrent, moderate F33.1 ; Generalized anxiety disorder F41.1 and Bipolar disorder, current episode depressed, severe, without psychotic features F31.4 [facility] [id number] [place] [address] 23923- 6103 Jan, Major depressive disorder, recurrent, moderate F33.1 ; Anxiety disorder, unspecified F41.9 and 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 [facility] [id number] [place] [address] 85065- 3721 16 Jan, 2016 Bronchitis J40 [facility] [id number] [place] [address] 27715- 3942 Jan, [facility] [id number] [place] [address] 68230- 3515 Jan, [facility] [address]- 3682 Jan, Elbow injury, right, initial encounter S59.901A ; Multiple contusions T14.8 and Cervical strain, acute, initial encounter S16.1XXA [facility] [address] 58008- 8182 Dec, Major depressive disorder, recurrent, moderate F33.1 ; Generalized anxiety disorder F41.1 and Bipolar disorder with depression F31.30 [facility] [address] 39037- 3884 Dec, [facility] [address], [place] [address]- 4743 Dec, [facility] [address], [place] [address]- 6540 Dec, [facility] [address], [place] [address]- 9665 Dec, [facility] [address] [place] [address] 79449- 0513 Dec, Yeast infection B37.9 [facility] [address] [place] [address] 35352- 6400 Dec, Pneumonia of both lungs due to methicillin resistant Staphylococcus aureus (MRSA), unspecified part of lung J15.212 and Benzodiazepine overdose, accidental or unintentional, subsequent encounter T42.4X1D [facility] [address] [place] [address] 72321- 4969 Dec, [facility] [address], [place] [address]- 6796 Dec, [facility] [address] [place] [address] 95908- 1864 Dec, Knee pain, left M25.562 and Edema, unspecified type R60.9 [facility] [address], [place] [address]- 3062 Dec, [facility] [id number] [place] [address] 38496- 3532 Dec, Anxiety disorder, unspecified F41.9 and Bipolar disorder, unspecified F31.9 [facility] [id number] [place] [address] 53229- 9332 Nov, Major depressive disorder, recurrent, moderate F33.1 ; Anxiety disorder, unspecified F41.9 and 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 [facility] [address] [place] [address] 20302- 0626 Nov, [facility] [address] [place] [address] 57108- 3603 Nov, Migraine without aura and without status migrainosus, not intractable G43.009 [facility] [id number] [place] [address] 01283- 7516 Nov, Migraine G43.909 [facility] [address] 82732- 5351 Nov, [facility] [id number] [place] [address] 74756- 0596 Nov, Major depressive disorder, recurrent, moderate F33.1 ; Anxiety disorder, unspecified F41.9 and 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 [facility] [id number] [place] [address] 32122- 0686 Oct, Chronic constipation K59.09 and Obesity, unspecified obesity severity, unspecified obesity type E66.9 [facility] [id number] [place] [address] 27461- 1694 Oct, Obesity, unspecified obesity severity, unspecified obesity type E66.9 ; Chronic constipation K59.09 and Anxiety disorder, unspecified F41.9 [facility] [id number] [place] [address] 41142- 0909 Oct, [facility] [id number] [place] [address] 36537- 9166 Sep, Diabetes E11.9 ; Edema, unspecified type R60.9 ; Varicose vein of leg I83.90 and Obesity, unspecified obesity severity, unspecified obesity type E66.9 [facility] [id number] [place] [address] 67701- 4586 Sep, Edema, unspecified type R60.9 ; Diabetes E11.9 and Knee pain , left M25.562 [facility] [id number] [place] [address] 13204- 9188 Sep, [facility] [address], [place] [address]- 6098 Sep, [facility] [id number] [place] [address] 68528- 0157 Sep, Major depressive disorder, recurrent, moderate F33.1 ; Generalized anxiety disorder F41.1 and Bipolar disorder, unspecified F31.9 [facility] [id number] [place] [address] 99923- 8753 Aug, Chondromalacia of left knee M94.262 [facility] [id number] [place] [address] [phone] Aug, Major depressive disorder, recurrent, moderate F33.1 ; Anxiety disorder, unspecified F41.9 and 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 [facility] [id number] [place] [address] [phone] Aug, [facility] [id number] [place] [address] [phone] Aug, Osteoarthritis of left knee M17.9 [facility] [id number] [place] [address] [phone] Aug, [facility] [id number] [place] [address] [phone] July, Major depressive disorder, recurrent, moderate F33.1 ; Anxiety disorder, unspecified F41.9 and 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 [facility] [id number] [place] [address] [phone] July, [facility] [id number] [place] [address] [phone] July, Chronic constipation K59.09 [facility] [id number] [place] [address] [phone] Jun, [facility] [address] [id number] [place] [address] 46539- 6669 15 Jun, 2015 [facility] [id number] [place] [address] 12355- 8643 14 Jun, 2015 Osteoarthritis of left knee M17.9 [facility] [id number] [place] [address] 40284- 7400 13 Jun, 2015 [facility] [id number] [place] [address] 26645- 5580 Jun, Generalized anxiety disorder F41.1 ; Bipolar disorder, unspecified F31.9 and Major depressive disorder, recurrent, moderate F33.1 [facility] [id number] [place] [address] 51214- 8148 07 Jun, 2015 Migraine G43.909 [facility] [id number] [place] [address] 42342- 1993 07 Jun, 2015 Left knee pain M25.562 ; Chronic constipation K59.09 ; Dry mouth R68.2 ; Yeast vaginitis B37.3 and Memory loss R41.3 [facility] [id number] [place] [address] 30042- 9827 Jun, [facility] [id number] [place] [address] 41707- 1007 30 May, 2015 [facility] [id number] [place] [address] 47785- 2199 May, [facility] [id number] [place] [address] 04756- 2578 May, [facility] [id number] [place] [address] 30567- 0936 May, [facility] [id number] [place] [address] 26928- 4803 17 May, 2015 Acute bronchitis with COPD J44.0 ; Knee pain, left M25.562 and Encounter for tobacco use cessation counseling Z71.6 [facility] [id number] [place] [address] 32475- 2033 May, [facility] [address] [place] [address] 21125- 0217 Apr, Diabetes E11.9 ; TMJ (sprain of temporomandibular joint) S03.4XXA ; Tobacco abuse Z72.0 ; Migraine G43.909 and Anxiety F41.9 [facility] [id number] [place] [address] 48428- 9741 Apr, Generalized anxiety disorder F41.1 and Bipolar disorder, unspecified F31.9 [facility] [id number] [place] [address] 45240- 3887 Apr, Major depressive disorder, recurrent, moderate F33.1 ; Anxiety disorder, unspecified F41.9 and 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 [facility] [id number] [place] [address] 51700- 0308 Apr, [facility] [id number] [place] [address] 20525- 8325 Mar, [facility] [id number] [place] [address] 84589- 1898 Feb, [facility] [id number] [place] [address] 05025- 3584 14 Feb, 2015 Major depressive disorder, recurrent, moderate F33.1 ; Anxiety disorder, unspecified F41.9 and 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 [facility] [id number] [place] [address] 20645- 9944 Feb, [facility] [id number] [place] [address] 10526- 8033 Feb, Generalized anxiety disorder F41.1 and Bipolar disorder, unspecified F31.9 [facility] [id number] [place] [address] 27307- 6313 Jan, [facility] [id number] [place] [address] 40360- 4701 Jan, [facility] [id number] [place] [address] 84036- 6480 Jan, Bipolar disorder, unspecified F31.9 and Generalized anxiety disorder F41.1 [facility] [id number] [place] [address] 88650- 4333 Dec, [facility] [id number] [place] [address] 33659- 8085 Dec, Bipolar disorder, unspecified F31.9 and Generalized anxiety disorder F41.1 [facility] [id number] [place] [address] 485675- 9155 Dec, Generalized anxiety disorder F41.1 and Major depressive disorder, recurrent, moderate F33.1 [facility] [id number] [place] [address] 81888- 1502 Oct, Headache 784.0 ; Cough 786.2 ; Vomiting and diarrhea 787.03 and Dysuria 788.1 [facility] [id number] [place] [address] 40549- 0960 Aug, [facility] [id number] [place] [address] 66020- 4246 Aug, Headache 784.0 and Shortness of breath 786.05 [facility] [id number] [place] [address] 54243- 2364 Aug, [facility] [id number] [place] [address] 29310- 0712 Aug, Migraine 346.90 [facility] [id number] [place] [address] 18318- 2719 Jun, [facility] [id number] [place] [address] 82799- 4550 Jun, [facility] [address] [place] [address] 29478- 5789 May, [facility] [address] [place] [address]- 1238 May, [facility] [place] [facility] [address] [id number] [place] [address]- 9252 May, [facility] [place] [facility] [address] [id number] [place] [address]- 1883 May, [facility] [place] [facility] [address] [id number] [place] [address]- 3271 May, [facility] [place] [facility] [address] [id number] [place] [address]- 7350 May, [facility] [place] [facility] [address] [id number] [place] [address]- 4710 Apr, [facility] [place] [facility] [address] [id number] [place] [address]- 5438 Apr, [facility] [place] [facility] [address] [id number] [place] [address]- 6578 Apr, [facility] [place] [facility] [address] [id number] [place] [address]- 5969 Apr, [facility] [place] [facility] [address] [id number] [place] [address]- 1840 Apr, [facility] [place] [facility] [address] [id number] [place] [address]- 8713 Mar, [facility] [place] [facility] [address] [id number] [place] [address]- 2756 Mar, [facility] [place] [facility] [address] [id number] [place] [address]- 8594 Mar, [facility] [place] [facility] [address] [id number] [place] [address]- 5899 Mar, [facility] [place] [facility] [address] [id number] [place] [address]- 6958 Feb, [facility] [place] [facility] [address] [id number] [place] [address]- 5340 Feb, [facility] [place] [facility] [address] [id number] [place] [address]- 8006 18 Feb, 2014 [facility] [place] [facility] [address] [id number] [place] [address]- 9285 Feb, [facility] [place] [facility] [address] [facility] [id number] [place] [address]- 8242 Feb, [facility] [place] [facility] [address] [id number] [place] [address]- 3889 Feb, [facility] [place] [facility] [address] [id number] [place] [address]- 1106 Feb, [facility] [place] [facility] [address] [id number] [place] [address]- 5887 Feb, [facility] [place] [facility] [address] [id number] [place] [address]- 2907 Feb, [facility] [place] [facility] [address] [id number] [place] [address]- 8666 Feb, [facility] [place] [facility] [address] [id number] [place] [address]- 8259 Feb, [facility] [place] [facility] [address] [id number] [place] [address]- 2828 Feb, [facility] [place] [facility] [address] [id number], [place] [address]- 0791 10 Jan, 2014 [facility] [place] [facility] [address] [id number], [place] [address]- 8573 10 Jan, 2014 [facility] [place] [facility] [address] [id number] [place] [address]- 1220 Dec, [facility] [place] [facility] [address] [id number], [place] [address]- 8199 10 Dec, 2013 [facility] [place] [facility] [address] [facility] [id number] [place] [address]- 2549 06 Dec, 2013 [facility] [place] [facility] [address] [id number] [place] [address]- 4353 Dec, [facility] [place] [facility] [address] [id number] [place] [address]- 1383 Dec, [facility] [place] [facility] [address] [id number] [place] [address]- 3216 Dec, [facility] [place] [facility] [address] [id number] [place] [address]- 3876 Sep, [facility] [place] [facility] [address] [id number] [place] [address]- 4097 Sep, [facility] [place] [facility] [address] [id number] [place] [address]- 9256 Sep, [facility] [place] [facility] [address] [id number] [place] [address]- 2340 Sep, [facility] [place] [facility] [address] [id number] [place] [address]- 0918 Sep, [facility] [place] [facility] [address] [id number] [place] [address]- 4102 Sep, [facility] [place] [facility] [address] [id number] [place] [address]- 3838 Sep, [facility] [place] [facility] [address] [id number] [place] [address]- 2459 Sep, [facility] [place] [facility] [address] [id number] [place] [address]- 1174 Sep, [facility] [place] [facility] [address] [id number] [place] [address]- 3091 Sep, [facility] [place] [facility] [address] [id number] [place] [address]- 9433 Aug, [facility] [place] [facility] [address] [id number] [place] [address]- 5953 Aug, [facility] [place] [facility] [address] [id number] [place] [address]- 7565 Aug, [facility] [place] [facility] [address] [id number] [place] [address]- 8299 Aug, [facility] [place] [facility] [address] [id number] [place] [address]- 6661 Aug, [facility] [place] [facility] [address] [id number] [place] [address]- 6368 Aug, [facility] [place] [facility] [address] [id number] [place] [address]- 0576 Aug, [facility] [place] [facility] [address] [id number] [place] [address]- 8794 Aug, [facility] [place] [facility] [address] [id number] [place] [address]- 6278 Aug, [facility] [place] [facility] [address] [id number] [place] [address]- 9727 Aug, [facility] [place] [facility] [address] [id number] [place] [address]- 6467 Aug, [facility] [place] [facility] [address] [id number] [place] [address]- 4826 Aug, [facility] [place] [facility] [address] [id number] [place] [address]- 3759 Aug, [facility] [place] [facility] [address] [id number] [place] [address]- 8651 July, [facility] [place] [facility] [address] [id number] [place] [address]- 3032 July, [facility] [place] [facility] [address] [id number] [place] [address]- 9519 July, [facility] [place] [facility] [address] [id number] [place] [address]- 4428 July, [facility] [place] [facility] [address] [id number] [place] [address]- 7837 July, [facility] [place] [facility] [address] [id number] [place] [address]- 6262 July, [facility] [place] [facility] [address] [id number] [place] [address]- 6523 July, [facility] [place] [facility] [address] [id number] [place] [address]- 4987 Jun, [facility] [place] [facility] [address] [id number] [place] [address]- 4881 Jun, [facility] [place] [facility] [address] [id number] [place] [address]- 4850 Jun, [facility] [place] [facility] [address] [id number] [place] [address]- 8168 Jun, [facility] [place] [facility] [address] [id number] [place] [address]- 4953 Jun, [facility] [place] [facility] [address] [id number] [place] [address]- 8456 Jun, [facility] [place] [facility] [address] [id number] [place] [address]- 6240 Jun, [facility] [place] [facility] [address] [id number] [place] [address]- 0537 17 May, 2013 [facility] [place] [facility] [address] [id number] [place] [address]- 3586 17 May, 2013 [facility] [place] [facility] [address] [id number] [place] [address]- 2317 14 May, 2013 [facility] [place] [facility] [address] [id number] [place] [address]- 7344 14 May, 2013 [facility] [place] [facility] [address] [id number] [place] [address]- 9992 13 May, 2013 [facility] [place] [facility] [address] [id number] [place] [address]- 6277 13 May, 2013 [facility] [place] [facility] [address] [id number] [place] [address]- 5970 10 May, 2013 [facility] [place] [facility] [address] [id number] [place] [address]- 2643 May, [facility] [place] [facility] [address] [id number] [place] [address]- 0140 May, [facility] [place] [facility] [address] [id number] [place] [address]- 4878 Apr, [facility] [place] [facility] [address] [id number] [place] [address]- 6845 Apr, [facility] [place] [facility] [address] [id number] [place] [address]- 0183 Apr, [facility] [place] [facility] [address] [id number] [place] [address]- 2238 Apr, [facility] [place] [facility] [address] [facility] [id number] [place] [address]- 3515 Apr, [facility] [place] [facility] [address] [id number] [place] [address]- 8496 Apr, [facility] [place] [facility] [address] [id number] [place] [address]- 9627 Apr, [facility] [place] [facility] [address] [facility] [id number] [place] [address]- 3244 Apr, [facility] [place] [facility] [address] [facility] [id number] [place] [address]- 1948 Apr, [facility] [place] [facility] [address] [id number], [place] [address]- 4212 Apr, [facility] [place] [facility] [address] [id number] [place] [address]- 3836 Mar, [facility] [place] [facility] [address] [id number] [place] [address]- 1741 Mar, [facility] [place] [facility] [address] [facility] [id number], [place] [address]- 1162 Mar, [facility] [place] [facility] [address] [id number], [place] [address]- 9877 Mar, [facility] [place] [facility] [address] [id number] [place] [address]- 7187 Mar, [facility] [place] [facility] [address] [id number] [place] [address]- 7475 Mar, [facility] [place] [facility] [address] [facility] [id number] [place] [address]- 0542 Mar, [facility] [place] [facility] [address] [id number] [place] [address]- 8544 Mar, [facility] [place] [facility] [address] [id number] [place] [address]- 5983 Feb, [facility] [place] [facility] [address] [id number] [place] [address]- 6725 Feb, [facility] [place] [facility] [address] [facility] [id number] [place] [address]- 7955 Jan, [facility] [place] [facility] [address] [facility] [id number] [place] [address]- 6262 18 Jan, 2013 [facility] [place] [facility] [address] [facility] [id number], [place] [address]- 0598 15 Jan, 2013 [facility] [place] [facility] [address] [facility] [id number] [place] [address]- 2986 15 Jan, 2013 [facility] [place] [facility] [address] [facility] [id number], [place] [address]- 5654 Jan, [facility] [place] [facility] [address] [id number], [place] [address]- 9667 Jan, [facility] [place] [facility] [address] [id number], [place] [address]- 1801 05 Jan, 2013 [facility] [place] [facility] [address] [facility] [id number], [place] [address]- 0395 05 Jan, 2013 [facility] [place] [facility] [address] [facility] [id number], [place] [address]- 7121 13 Dec, 2012 [facility] [place] [facility] [address] [id number] [place] [address]- 8561 10 Dec, 2012 [facility] [place] [facility] [address] [id number] [place] [address]- 9850 10 Dec, 2012 [facility] [place] [facility] [address] [id number] [place] [address]- 3796 20 Nov, 2012 [facility] [place] [facility] [address] [id number] [place] [address] 2546 13 Nov, 2012 [facility] [place] [facility] [address] [id number] [place] [address]- 8186 12 Nov, 2012 [facility] [place] [facility] [address] [id number] [place] [address]- 8404 09 Nov, 2012 [facility] [place] [facility] [address] [id number] [place] [address]- 8196 06 Nov, 2012 [facility] [place] [facility] [address] [id number] [place] [address]- 1838 Nov, 2012 [facility] [place] [facility] [address] [id number] [place] [address]- 2736 Oct, [facility] [place] [facility] [address] [id number] [place] [address]- 8736 Oct, [facility] [place] [facility] [address] [id number] [place] [address]- 8748 Sep, [facility] [place] [facility] [address] [id number] [place] [address]- 3931 Sep, [facility] [place] [facility] [address] [id number] [place] [address]- 0837 Sep, [facility] [place] [facility] [address] [id number] [place] [address]- 6219 Sep, [facility] [place] [facility] [address] [id number] [place] [address]- 2547 Sep, [facility] [place] [facility] [address] [id number] [place] [address]- 2222 Sep, [facility] [address] [id number] [place] [address]- 2703 09 Sep, 2012 [facility] [place] [facility] [address] [id number] [place] [address]- 3994 Aug, [facility] [place] [facility] [address] [id number] [place] [address]- 7888 14 Aug, 2012 [facility] [place] [facility] [address] [id number] [place] [address]- 4489 Aug, [facility] [place] [facility] [address] [id number] [place] [address]- 8335 Aug, [facility] [place] [facility] [address] [id number] [place] [address]- 8195 Aug, [facility] [place] [facility] [address] [id number] [place] [address]- 7280 Aug, [facility] [place] [facility] [address] [id number] [place] [address]- 9019 July, [facility] [place] [facility] [address] [id number] [place] [address]- 8569 July, [facility] [place] [facility] [address] [id number] [place] [address]- 1540 July, [facility] [place] [facility] [address] [id number] [place] [address]- 6588 July, [facility] [place] [facility] [address] [id number] [place] [address]- 9659 July, [facility] [place] [facility] [address] [id number] [place] [address]- 4912 July, [facility] [place] [facility] [address] [id number] [place] [address]- 3917 Jun, [facility] [place] [facility] [address] [id number] [place] [address]- [address] Jun, [facility] [place] [facility] [address] [id number] [place] [address] 15 Jun, 2012 [facility] [address] [id number] [place] [address] 12 Jun, 2012 [facility] [place] [facility] [address] [id number] [place] [address] 02 Jun, 2012 [facility] [place] [facility] [address] [facility] [id number] [place] [address] Jun, [facility] [place] [facility] [address] [id number] [place] [address] Jun, [facility] [place] [facility] [address] [id number] [place] [address] May, [facility] [place] [facility] [address] [facility] [id number] [place] [address] 04 May, 2012 [facility] [place] [facility] [address] [facility] [id number] [place] [address] 26 Apr, 2012 [facility] [place] [facility] [address] [id number] [place] [address]- [address]80 19 Apr, 2012 [facility] [place] [facility] [address] [id number] [place] [address] 18 Apr, 2012 [facility] [place] [facility] [address] [facility] [id number] [place] [address]- 1186 18 Apr, 2012 [facility] [place] [facility] [address] [id number] [place] [address] 12 Apr, 2012 [facility] [place] [facility] [address] [id number] [place] [address]- [address] 08 Apr, 2012 [facility] [place] [facility] [address] [facility] [id number] [place] [address] 07 Apr, 2012 [facility] [place] [facility] [address] [facility] [id number] [place] [address] 07 Apr, 2012 [facility] [place] [facility] [address] [id number] [place] [address] Apr, [facility] [address] [id number] [place] [address] Apr, [facility] [place] [facility] [address] [id number] [place] [address] Apr, [facility] [place] [facility] [address] [id number] [place] [address] Mar, [facility] [place] [facility] [address] [id number] [place] [address] 33[address] Mar, [facility] [place] [facility] [address] [id number] [place] [address] Mar, [facility] [place] [facility] [address] [id number] [place] [address] Mar, [facility] [place] [facility] [address] [id number] [place] [address]- 1029 Mar, [facility] [place] [facility] [address] [id number] [place] [address]- [address] Mar, [facility] [place] [facility] [address] [id number] [place] [address]- [address] Mar, [facility] [place] [facility] [address] [id number] [place] [address]- [address] Mar, [facility] [place] [facility] [address] [id number], [place] [address]- [address] Mar, [facility] [place] [facility] [address] [id number], [place] [address] Mar, [facility] [place] [facility] [address] [id number] [place] [address]- 1877 Mar, [facility] [place] [facility] [address] [id number] [place] [address]- [address] Mar, [facility] [place] [facility] [address] [id number] [place] [address]- 269[address] Mar, [facility] [place] [facility] [address] [id number] [place] [address]156 20 Feb, 2012 [facility] [address] [id number] [place] [address] 7626 Feb, [facility] [address] [id number] [place] [address] 2546 18 Feb, 2012 [facility] [address] [id number] [place] [address] 18 Feb, 2012 [facility] [address] [id number] [place] [address] 2546 Feb, [facility] [address] [id number] [place] [address]- 76[address] Feb, [facility] [address] [id number] [place] [address]- 1546 Feb, [facility] [address] [id number] [place] [address]- [address] Feb, [facility] [address] [id number] [place] [address]- 42[address] Feb, [facility] [address] [id number] [place] [address]- 0736 Feb, [facility] [address] [id number] [place] [address]- 8665 06 Feb, 2012 [facility] [place] [facility] [address] [id number] [place] [address] 2546 Feb, [facility] [address] [id number] [place] [address] 2546 Feb, [facility] [place] [facility] [address] [id number] [place] [address]- 4816 Feb, [facility] [place] [facility] [address] [id number] [place] [address]- 29[address] Feb, [facility] [place] [facility] [address] [id number] [place] [address]- 1537 Jan, [facility] [place] [facility] [address] [id number] [place] [address]- [address]107 Jan, [facility] [place] [facility] [address] [id number] [place] [address]- [address] Jan, [facility] [place] [facility] [address] [id number] [place] [address]- 9[address] Jan, [facility] [place] [facility] [address] [id number] [place] [address]- 1631 Dec, [facility] [place] [facility] [address] [id number] [place] [address]- 1877 Dec, [facility] [place] [facility] [address] [id number] [place] [address]- 4955 Dec, [facility] [place] [facility] [address] [id number] [place] [address]- 1279 Dec, [facility] [place] [facility] [address] [id number], [place] [address]- [address] Dec, [facility] [place] [facility] [address] [id number], [place] [address]- [address]15 Dec, [facility] [place] [facility] [address] [id number], [place] [address]- 9314 Dec, [facility] [place] [facility] [address] [facility] [id number], [place] [address]- [address] Dec, [facility] [place] [facility] [address] [id number], [place] [address] Dec, [facility] [place] [facility] [address] [id number], [place] [address] Dec, [facility] [place] [facility] [address] [id number], [place] [address] Dec, [facility] [place] [facility] [address] [id number], [place] [address] Nov, [facility] [place] [facility] [address] [id number], [place] [address] 24 Sep, 2011 [facility] [place] [facility] [address] [id number] [place] [address] 20 Sep, 2011 [facility] [place] [facility] [address] [id number] [place] [address] 2546 19 Sep, 2011 [facility] [place] [facility] [address] [id number] [place] [address] 2546 17 Sep, 2011 [facility] [place] [facility] [address] [id number] [place] [address] 2546 16 Sep, 2011 [facility] [place] [facility] [address] [id number] [place] [address] 14 Sep, 2011 [facility] [place] [facility] [address] [id number] [place] [address] 13 Sep, 2011 [facility] [place] [facility] [address] [id number] [place] [address] 12 Sep, 2011 [facility] [place] [facility] [address] [id number] [place] [address] 07 Sep, 2011 [facility] [place] [facility] [address] [id number] [place] [address] 2549 06 Sep, 2011 [facility] [place] [facility] [address] [id number] [place] [address] 254 06 Sep, 2011 [facility] [place] [facility] [address] [id number] [place] [address] 2541 05 Sep, 2011 [facility] [place] [facility] [address] [id number] [place] [address] 29 Oct, 2011 [facility] [place] [facility] [address] [id number] [place] [address] 254 29 Oct, 2011 [facility] [place] [facility] [address] [id number] [place] [address] 2541 28 Oct, 2011 [facility] [place] [facility] [address] [id number] [place] [address] 28 Oct, 2011 [facility] [place] [facility] [address] [id number] [place] [address] Oct, [facility] [place] [facility] [address] [id number] [place] [address] Oct, [facility] [place] [facility] [address] [id number] [place] [address] Oct, [facility] [place] [facility] [address] [id number] [place] [address] Oct, [facility] [place] [facility] [address] [id number] [place] [address] Oct, [facility] [place] [facility] [address] [id number] [place] [address] Oct, [facility] [place] [facility] [address] [id number] [place] [address] Oct, [facility] [place] [facility] [address] [id number] [place] [address] Sep, [facility] [place] [facility] [address] [id number] [place] [address] Sep, [facility] [place] [facility] [address] [id number] [place] [address] Sep, [facility] [place] [facility] [address] [id number] [place] [address] Sep, [facility] [place] [facility] [address] [id number] [place] [address] Sep, [facility] [place] [facility] [address] [id number] [place] [address] Sep, [facility] [place] [facility] [address] [id number] [place] [address] Aug, [facility] [place] [facility] [address] [id number] [place] [address] July, [facility] [place] [facility] [address] [id number] [place] [address] July, [facility] [address] [id number] [place] [address] Jun, [facility] [place] [facility] [address] [id number] [place] [address] Jun, [facility] [place] [facility] [address] [id number] [place] [address] Jun, [facility] [place] [facility] [address] [id number] [place] [address]- [address] Jun, [facility] [place] [facility] [address] [id number] [place] [address] Jun, [facility] [place] [facility] [address] [id number] [place] [address]- [address] Jun, [facility] [place] [facility] [address] [id number] [place] [address]- 8080 Jun, [facility] [place] [facility] [address] [id number] [place] [address]- [address] Jun, [facility] [place] [facility] [address] [id number] [place] [address]- [address] Jun, [facility] [place] [facility] [address] [id number] [place] [address]- [address] Jun, [facility] [place] [facility] [address] [id number] [place] [address]- 1719 Jun, [facility] [place] [facility] [address] [id number] [place] [address]- [address] May, [facility] [place] [facility] [address] [id number] [place] [address]- [address] 16 May, 2011 [facility] [place] [facility] [address] [id number] [place] [address]- [address] 14 May, 2011 [facility] [place] [facility] [address] [id number] [place] [address]- [address] 06 May, 2011 [facility] [place] [facility] [address] [id number] [place] [address]- 1617 Apr, [facility] [place] [facility] [address] [id number] [place] [address]- [address] Apr, [facility] [place] [facility] [address] [id number] [place] [address] 2546 Apr, [facility] [place] [facility] [address] [id number] [place] [address]- [address] Apr, [facility] [place] [facility] [address] [id number] [place] [address] 2546 Apr, [facility] [place] [facility] [address] [id number] [place] [address]- 2536 Apr, [facility] [place] [facility] [address] [id number] [place] [address]- [address] Apr, [facility] [place] [facility] [address] [id number] [place] [address]- [address] Apr, [facility] [place] [facility] [address] [id number] [place] [address]- 45[address] Mar, [facility] [place] [facility] [address] [id number] [place] [address]- 32[address] Mar, [facility] [place] [facility] [address] [id number] [place] [address]- 15[address] Mar, [facility] [place] [facility] [address] [id number] [place] [address]- 8869 Mar, [facility] [place] [facility] [address] [id number] [place] [address] 2546 17 Mar, 2011 [facility] [place] [facility] [address] [id number] [place] [address] 2546 Mar, [facility] [place] [facility] [address] [id number] [place] [address] 2546 Mar, [facility] [place] [facility] [address] [id number] [place] [address]- [address]365 Mar, [facility] [address] [id number] [place] [address]- [address] Mar, [facility] [place] [facility] [address] [id number] [place] [address]- 5571 Mar, [facility] [place] [facility] [address] [id number] [place] [address]- 6412 Mar, [facility] [place] [facility] [address] [id number] [place] [address]- 5628 Mar, [facility] [place] [facility] [address] [id number] [place] [address]- 3[address] Mar, [facility] [place] [facility] [address] [id number] [place] [address]- [address] Mar, [facility] [place] [facility] [address] [id number] [place] [address]- 0047 Mar, [facility] [place] [facility] [address] [id number] [place] [address]- 8130 Mar, [facility] [place] [facility] [address] [id number] [place] [address]- 0919 Feb, [facility] [place] [facility] [address] [id number] [place] [address]- 0118 Feb, [facility] [place] [facility] [address] [id number] [place] [address]- 5954 Feb, [facility] [place] [facility] [address] [id number], [place] [address]- [address] Jan, [facility] [place] [facility] [address] [id number] [place] [address]- 4845 Jan, [facility] [place] [facility] [address] [id number] [place] [address]- 6345 Jan, [facility] [place] [facility] [address] [id number] [place] [address]- 8012 Dec, [facility] [place] [facility] [address] [id number], [place] [address] Dec, [facility] [address], [place] [address] 25[address] Nov, [facility] [address], [place] [address]- 25[address] Oct, [facility] [address], [place] [address]- 2546 Oct, [facility] [id number] [place] [address]- [address] Oct, [facility] [id number] [place] [address] 2546 Sep, [facility] [id number] [place] [address]- 2546 Apr, [facility] [id number] [place] [address] 2546 Feb, [facility] [address], [place] [address] 25[address] Jan, IMMUNIZATIONS No Known Immunizations SOCIAL HISTORY Never Assessed REASON FOR VISIT shortness of breath/weakness, PT reports since Thursday she has been feeling hot/ cold, dizzy and shortness of breath. -Amandeep FERREIRA PLAN OF CARE Activity Details Follow Up prn Reason: VITAL SIGNS Height 70 in 2017-09-30 Weight 200.7 lbs 2017-09-30 Temperature 97.5 degrees Fahrenheit 2017-09-30 Heart Rate 100 bpm 2017-09-30 Respiratory Rate 20 2017-09-30 Oximetry w/ oxygen @ 3L:98 % 2017-09-30 BMI 28.79 kg/m2 2017-09-30 Blood pressure systolic 130 mmHg 2017-09-30 Blood pressure diastolic 80 mmHg 2017-09-30 MEDICATIONS Medication Instructions Dosage Frequency Start Date End Date Duration Status Entresto 24-26 MG Orally Twice a day 1 tablet 12h Active Advair Diskus 250-50 MCG/DOSE Inhalation Twice a day 1 puff 12h Dec, 90 days Active Spiriva HandiHaler 18 MCG Inhalation Once a day 1 capsule 24h 90 days Active Lasix 20 MG Orally Once a day 1 tablet 24h Active Metoprolol Tartrate 25 MG Orally 2 times a day 1/2 tablet 12h Active Risperidone 0.5 MG Orally twice a day 1 tablet 12h Sep, Not- Taking Aspir-81 81 MG Orally Once a day 1 tablet 24h Active Ventolin HFA 108 (90 Base) MCG/ACT Inhalation every 4 hours 2 puffs as needed for short of breath or wheeze 4h 90 days Active Ipratropium-Albuterol 0.5-2.5 (3) MG/3ML Inhalation Four times a day 3 ml as needed for Shortness of breath 6h 28 days Active PredniSONE 10 mg Orally Once a day 4 tablets daily X 4 days, 3 tablets daily X 3 days, 2 tablets daily X 2 days, 1 tablet for 1 day 24h Active Trulicity 0.75 MG/0.5ML Subcutaneous once weekly Inject 0.5 ml Jun, 90 days Active Glimepiride 1 MG Orally Once a [...] Benzos OD, pneumonia MRSA, MAYRA, Hypokalemia-- [facility] 12/20/2015 Hospitalization History COPD exacerbation, Asthma-[facility] 09/21/16 Hospitalization History COPD-[facility] 12/30/2016 Hospitalization History [facility] [place] inpatient-last around 2006 or so. Hospitalization History for COPD x2 Mar 2017 Hospitalization History Upper GI bleed at apr 2017 Hospitalization History [facility]- COPD Exacerbation, diarrhea 05/23/2017 Hospitalization History COPD exacerbation-[facility] 06/13/17 Hospitalization History [facility] 09/09/2017
--- NOTE | 2017-12-06 13:51 | Diagnostic Imaging Report ---
Portable erect AP chest at 1:35 PM. Indication: Shortness of breath. The heart is mildly enlarged but stable when compared to the prior exam of 11/21/2017. The previous study did show atelectasis/infiltrate and fluid involving the left lung base. On this exam the left lung base does seem better aerated. There is still a band of atelectasis/infiltrate in the left lower lobe adjacent to the heart border and there is blunting of the left costophrenic angle. The right lung base also seems better aerated than on the prior study. The upper lungs remain clear. The mediastinum is not widened. The osseous structures are intact. Impression: The appearance of the chest has improved since the prior exam as both lung bases do seem better aerated. There is no acute abnormality identified. Dictated by: Dictated on workstation # [id number]
[2017-12-06] MEDS ORDERED: predniSONE 20 MG TAB PO ONE (14:30)
[2017-12-06] MEDS ORDERED: ONDA4TAB11 PO (14:34)
[2017-12-06] MEDS ORDERED: PRD20T PO (14:34)
[2017-12-06] MEDS ORDERED: INHA1INH59 MC (14:34)
[2017-12-06 14:46] VITALS: BP 150/90
== END 2017-12-06 14:47 | disposition home or self-care (01) ==
LOC: EDUNIT# 12:06 → ER 12:07
DX: J44.9 Chronic obstructive pulmonary disease, unspecified (principal); G47.30 Sleep apnea, unspecified; E11.9 Type 2 diabetes mellitus without complications; F41.9 Anxiety disorder, unspecified; F31.9 Bipolar disorder, unspecified; I10 Essential (primary) hypertension; G43.909 Migraine, unspecified, not intractable, without status migrainosus; F15.10 Other stimulant abuse, uncomplicated; F17.210 Nicotine dependence, cigarettes, uncomplicated; Z87.19 Personal history of other diseases of the digestive system; Z80.1 Family history of malignant neoplasm of trachea, bronchus and lung; Z82.49 Family history of ischemic heart disease and other diseases of the circulatory system; Z99.81 Dependence on supplemental oxygen; Z91.5 Personal history of self-harm; Z88.8 Allergy status to other drugs, medicaments and biological substances; Z79.82 Long term (current) use of aspirin; Z79.51 Long term (current) use of inhaled steroids; Z79.84 Long term (current) use of oral hypoglycemic drugs; Z79.52 Long term (current) use of systemic steroids
CPT/HCPCS: 36415; 36600; 71045; 80053; 82805; 85025; 86141; 94640

== ENCOUNTER 2017-12-26 16:36 | Emergency (ER) | payer SELFPAY ==
[~2017-12-26] VITALS: Ht 175.3 cm; Wt 89.8 kg
[~2017-12-26 16:36] MED LIST changes: +INHA1INH59 MC; +ONDA4TAB11 PO
[2017-12-26] MEDS ORDERED: RT-ALBUTEROL/IPRATROPIUM 3 ML (DUONEB) VIAL ONE (17:58)
[2017-12-26] MEDS ORDERED: DEXAMETHASONE 4 MG/ML SDV (DECADRON) ONE (17:58)
[2017-12-26] MEDS ORDERED: DEXAMETHASONE 4 MG/ML SDV (DECADRON) IH ONE (18:00)
[2017-12-26] MEDS ORDERED: RT-ALBUTEROL/IPRATROPIUM 3 ML (DUONEB) VIAL INH ONE (18:00)
[2017-12-26] MEDS ORDERED: RT-IPRATROPIUM (ATROVENT) 0.5MG/2.5ML AMP IH ONE (18:08)
[2017-12-26] MEDS ORDERED: RT-ALBUTEROL SULF 2.5 MG/3 ML PRE-MIX VIAL ONE (18:08)
[2017-12-26 18:15] LABS: BASOPHILS % (AUTO) 0 % (0-10); EOSINOPHILS # (AUTO) 0.2 10^3/uL (0.0-0.3); EOSINOPHILS % (AUTO) 3 % (0-10); HEMATOCRIT 39 % (35-52); HEMOGLOBIN 12.8 G/DL (11.5-16.0); LYMPHOCYTES # (AUTO) 3.1 X 10^3 (1.0-4.0); LYMPHOCYTES % (AUTO) 38 % (12-44); MEAN CORPUSCULAR HEMOGLOBIN 28 PG (25-34); MEAN CORPUSCULAR HGB CONC 33 G/DL (32-36); MEAN CORPUSCULAR VOLUME 85 FL (80-99); MEAN PLATELET VOLUME 10.1 FL (7.4-10.4); MONOCYTES # (AUTO) 0.8 X 10^3 (0.0-1.0); MONOCYTES % (AUTO) 9 % (0-12); NEUTROPHILS % (AUTO) 49 % (42-75); PLATELET COUNT 302 10^3/uL (130-400); RED BLOOD COUNT 4.57 10^6/uL (4.35-5.85); RED CELL DISTRIBUTION WIDTH 14.9 % (10.0-14.5); WHITE BLOOD COUNT 8.1 10^3/uL (4.3-11.0)
--- NOTE | 2017-12-26 18:25 | ED Respiratory ---
General Chief Complaint: Respiratory Problems Stated Complaint: SOB Nursing Triage Note: PT STATES SINCE THRUSDAY HAS BEEN HAVE RESPIRATORY DIFFICULTY. Source: patient, old records History of Present Illness Date Seen by Provider: Dec 26, 2017 Time Seen by Provider: 17:55 Initial Comments PT ARRIVES VIA POV FROM HOME C/O SHORTNESS OF BREATH SINCE THURSDAY NIGHT PT WITH LONG HISTORY OF COPD, IS O2 DEPENDENT ON 3L/NC CONTINUOUSLY AND WEARS BIPAP AT HS. STATES SHE HAS USED HER INHALERS AND NEBULIZERS TODAY WITHOUT RELIEF--USED ALBUTEROL INHALER JUST PRIOR TO ARRIVAL PT CONTINUES TO SMOKE AT LEAST 1/2 PPD OF CIGARETTES, IN ADDITION TO REGULARLY USING METH--FREQUENTLY SMOKES IT. PT DENIES FEVER DENIES CHEST PAIN CHRONIC COUGH WITH CLEAR SPUTUM--NO DIFFERENT THAN NORMAL NO SWELLING IN LEGS FEET OR PAIN IN CALVES PT WITH MULTIPLE VISITS. MOST FOR RESPIRATORY - RELATED COMPLAINTS--PT HAS HAD 13 VISITS IN 2018 LAST VISIT WAS 12/06/17 FOR THIS SAME PROBLEM. WAS GIVEN A STEROID TAPER AND LEVAQUIN PT HAS NOT ATTEMPTED TO FOLLOW UP WITH ANYONE SINCE THAT VISIT. PT WAS ALSO ADMITTED 11/20/17 FOR SAME WAS DISMISSED WITH A STEROID TAPER AT THAT TIME WELL ALSO DID NOT FOLLOW UP WITH ANYONE AFTER THAT STAY EITHER PCP: MARGARITA-SCOTT, BALANCE WHEEL FACER ALIZA CARTER CARAMEL CUTTER MACHINE: DR. THOMAS Allergies and Home Medications Allergies Coded Allergies: buspirone (Verified Allergy, Mild, 05/02/17) Made"legs Shaky" amitriptyline (Verified Allergy, Unknown, 05/02/17) " MAKES ME DO WEIRD THINGS LIKE WALK IN MY SLEEP AND HAVE HALLUCINATIONS." Home Medications Albuterol Sulfate 1 Puff Puff, 2 PUFF IH Q4H PRN for SHORTNESS OF BREATH, ( Reported) Aspirin 81 Mg Tablet.dr, 81 MG PO DAILY, (Reported) Fluticasone/Salmeterol 1 Each Blst.w.dev, 1 PUFF IH BID, (Reported) Furosemide 20 Mg Tablet, 20 MG PO DAILY, (Reported) Glimepiride 1 Mg Tablet, 1 MG PO DAILY PRN for WHEN TAKING PREDNISONE, (Reported ) Ipratropium/Albuterol Sulfate 3 Ml Ampul.neb, 3 ML IH QID PRN for SHORTNESS OF BREATH, (Reported) Levofloxacin 500 Mg Tablet, 500 MG PO DAILY Prescribed by: CONNOR JOHNSTON on 11/22/17 111 Metoprolol Tartrate 25 Mg Tablet, 12.5 MG PO BID, (Reported) TAKES 1/2 (25MG) TABLET Ondansetron 4 Mg Tab.rapdis, 4 MG PO Q6H PRN for NAUSEA/VOMITING Prescribed by: ABIGAIL PASCUAL on 12/06/17 143 Prednisone 10 Mg Tab, 10 MG PO DAILY 5 tabs (50mg) Day 1 4 tabs (40mg) Day 2 4 tabs (40mg) Day 3 3 tabs (30mg) Day 4 3 tabs (30mg) Day 5 2 tabs (20mg) Day 6 2 tabs (20mg) Day 7 1 tab (10Mg) Day 8 Prescribed by: CONNOR JOHNSTON on 11/22/171117 Prednisone 20 Mg Tab, 40 MG PO DAILY Prescribed by: ABIGAIL PASCUAL on 12/06/17 143 Prednisone 5 Mg Tablet, 5 MG PO UD 12 PILLS DAY 1, THEN DECREASE BY 1 PILL A DAY UNTIL GONE Prescribed by: TIMOTHY HUGHES on 12/26/17 194 Sacubitril/Valsartan 1 Each Tablet, 1 TAB PO BID, (Reported) Tiotropium [place] 1 Inh Aerp, 1 CAP IH DAILY, (Reported) Past Cgngfrn-Epyplk-Blbrqn Hx Patient Social History Drug of Choice: +IV METH past hx Type Used: Cigarettes 2nd Hand Smoke Exposure: Yes Recent Foreign Travel: No Contact w/Someone Who Travel: No Recent Infectious Disease Expo: No Recent Hopitalizations: No Immunizations Up To Date Tetanus Booster (TDap): Unknown Date of Pneumonia Vaccine: Dec 08, 2011 Date of Influenza Vaccine: Dec 31, 2016 Seasonal Allergies Seasonal Allergies: No Past Medical History Surgeries: No Respiratory: Yes (O2 AT 2-3L/NC) Sleep Apnea, COPD Currently Using CPAP: No Currently Using BIPAP: Yes Cardiac: Yes (HAD HEART CATH. 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 Sexually Transmitted Disease: No HIV/AIDS: No Genitourinary: No Gastrointestinal: Yes Ulcer Musculoskeletal: Yes (chronic shoulder and neck pain) Endocrine: Yes (DM- only while on steriods per pt) Diabetes, Non-Insulin dep HEENT: No Cancer: No Psychosocial: Yes Sleep Difficulties, Anxiety, Suicide Attempts, Bipolar, Depression Integumentary: No Blood Disorders: No Adverse Reaction/Blood Tranf: No Family Medical History Cancer 03 MOTHER, Onset:66 (LUNG ) 09 BROTHER (LUNG ) Congestive heart failure 03 FATHER Heart Disease, Cancer Physical Exam Vital Signs - First Documented 12/26/17 12/26/17 12/26/17 16:40 17:48 18:04 Temp 97.8 Pulse 86 Resp 18 B/P (MAP) 145/93 (110) Pulse Ox 99 O2 Delivery Room Air O2 Flow Rate 3.00 Capillary Refill : Less Than 3 Seconds Height: 5'9.00" Weight: 198lbs. 12.0oz. 89.021516dz; 29.1 BMI Method:Stated Focused Exam Lactate Level 12/26/17 18:30: Lactic Acid Level 0.81 Lactic Acid Level Laboratory Tests Test 12/26/17 18:30 Lactic Acid Level 0.81 MMOL/L (0.50-2.00) Progress/Results/Core Measures Suspected Sepsis Recent Fever Within 48 Hours: No Infection Criteria Present: None New/Unexplained Altered Menta: No Sepsis Screen: No Definite Risk SIRS Temperature:97.8 Pulse: 86 Respiratory Rate: 18 Laboratory Tests 12/26/17 18:05: White Blood Count 8.1 Blood Pressure 145 /93 Mean: 110 12/26/17 18:30: Lactic Acid Level 0.81 Laboratory Tests 12/26/17 18:05: Creatinine 0.93, Platelet Count 302, Total Bilirubin 0.2 Results/Orders Lab Results Laboratory Tests Test 12/26/17 18:05 12/26/17 18:30 12/26/17 19:45 Range/Units White Blood Count 8.1 4.3-11.0 10^3/uL Red Blood Count 4.57 4.35-5.85 10^6/uL Hemoglobin 12.8 11.5-16.0 G/DL Hematocrit 39 35-52 % Mean Corpuscular Volume 85 80-99 FL Mean Corpuscular Hemoglobin 28 25-34 PG Mean Corpuscular Hemoglobin Concent 33 32-36 G/DL Red Cell Distribution Width 14.9 H 10.0-14.5 % Platelet Count 302 130-400 10^3/uL Mean Platelet Volume 10.1 7.4-10.4 FL Neutrophils (%) (Auto) 49 42-75 % Lymphocytes (%) (Auto) 38 12-44 % Monocytes (%) (Auto) 9 0-12 % Eosinophils (%) (Auto) 3 0-10 % Basophils (%) (Auto) 0 0-10 % Neutrophils # (Auto) 4.0 1.8-7.8 X 10^3 Lymphocytes # (Auto) 3.1 1.0-4.0 X 10^3 Monocytes # (Auto) 0.8 0.0-1.0 X 10^3 Eosinophils # (Auto) 0.2 0.0-0.3 10^3/uL Basophils # (Auto) 0.0 0.0-0.1 10^3/uL Sodium Level 141 135-145 MMOL/L Potassium Level 3.8 3.6-5.0 MMOL/L Chloride Level 107 98-107 MMOL/L Carbon Dioxide Level 23 21-32 MMOL/L Anion Gap 11 5-14 MMOL/L Blood Urea Nitrogen 12 7-18 MG/DL Creatinine 0.93 0.60-1.30 MG/DL Estimat Glomerular Filtration Rate > 60 BUN/Creatinine Ratio 13 Glucose Level 101 70-105 MG/DL Calcium Level 9.7 8.5-10.1 MG/DL Corrected Calcium 9.6 8.5-10.1 MG/DL Total Bilirubin 0.2 0.1-1.0 MG/DL Aspartate Amino Transf (AST/SGOT) 9 5-34 U/L Alanine Aminotransferase (ALT/SGPT) 11 0-55 U/L Alkaline Phosphatase 77 40-136 U/L B-Type Natriuretic Peptide 134.3 H <100.0 PG/ML Total Protein 6.7 6.4-8.2 GM/DL Albumin 4.1 3.2-4.5 GM/DL Serum Test, Qualitative NEGATIVE NEGATIVE Lactic Acid Level 0.81 0.50-2.00 MMOL/L Urine Color YELLOW Urine Clarity CLEAR Urine pH 6 5-9 Urine Specific [place] 1.010 L 1.016-1.022 Urine Protein NEGATIVE NEGATIVE Urine Glucose (UA) NEGATIVE NEGATIVE Urine Ketones NEGATIVE NEGATIVE Urine Nitrite NEGATIVE NEGATIVE Urine Bilirubin NEGATIVE NEGATIVE Urine Urobilinogen NORMAL NORMAL MG/DL Urine Leukocyte Esterase NEGATIVE NEGATIVE Urine RBC (Auto) NEGATIVE NEGATIVE Urine RBC NONE /HPF Urine WBC RARE /HPF Urine Squamous Epithelial Cells 2-5 /HPF Urine Crystals NONE /LPF Urine Bacteria NEGATIVE /HPF Urine Casts NONE /LPF Urine Mucus NEGATIVE /LPF Urine Culture Indicated NO Urine Opiates Screen NEGATIVE NEGATIVE Urine Oxycodone Screen NEGATIVE NEGATIVE Urine Methadone Screen NEGATIVE NEGATIVE Urine Propoxyphene Screen NEGATIVE NEGATIVE Urine Barbiturates Screen NEGATIVE NEGATIVE Ur Tricyclic Antidepressants Screen NEGATIVE NEGATIVE Urine Phencyclidine Screen NEGATIVE NEGATIVE Urine Amphetamines Screen POSITIVE H NEGATIVE Urine Methamphetamines Screen NEGATIVE NEGATIVE Urine Benzodiazepines Screen NEGATIVE NEGATIVE Urine Cocaine Screen NEGATIVE NEGATIVE Urine Cannabinoids Screen NEGATIVE NEGATIVE Micro Results Microbiology 12/26/17 Influenza Types A,B Antigen (JADEN) - Final, Complete My Orders Orders - TIMOTHY HUGHES DO Saline Lock/Iv-Start (12/26/17 17:55) Ekg Tracing (12/26/17 17:55) O2 (12/26/17 17:55) Monitor-Rhythm Ecg Trace Only (12/26/17 17:55) BNP (12/26/17 17:55) Cbc With Automated Diff (12/26/17 17:55) Comprehensive Metabolic Panel (12/26/17 17:55) Drug Screen Stat (Urine) (12/26/17 17:55) Hcg,Qualitative Serum (12/26/17 17:55) Lactic Acid Analyzer (12/26/17 17:55) Blood Culture (12/26/17 17:55) Influenza A And B Antigens (12/26/17 17:55) Albuterol/Ipra Inhalation Soln (Duoneb I (12/26/17 18:00) Dexamethasone Injection (Decadron Inject (12/26/17 18:00) Rt Request For Service (12/26/17 17:55) Svn Small Volume Nebulizer (12/26/17 17:55) Dexamethasone Injection (Decadron Inject (12/26/17 17:58) Albuterol/Ipra Inhalation Soln (Duoneb I (12/26/17 17:58) Chest 1 View, Ap/Pa Only (12/26/17 18:03) Ipratropium 0.02% Neb Solution (Atrovent (12/26/17 18:08) Albuterol Pre-Mix Nebs (Rt) (Proventil (12/26/17 18:08) Methylprednisolone Sod Succ (Solu-Medrol (12/26/17 19:00) Ua Culture If Indicated (12/26/17 20:05) Medications Given in ED Current Medications Medications Dose Ordered Sig/Vladimir Route Start Time Stop Time Status Last Admin Dose Admin Albuterol Sulfate 2.5 mg STK-MED ONCE .ROUTE 12/26/17 18:08 12/26/17 18:09 DC 12/26/17 18:11 15 MG Albuterol/ Ipratropium 3 ml STK-MED ONCE .ROUTE 12/26/17 17:58 12/26/17 18:00 DC 12/26/17 18:02 3 ML Dexamethasone Sodium Phosphate 20 mg ONCE ONCE IH 12/26/17 18:00 12/26/17 18:02 DC 12/26/17 18:02 20 MG Ipratropium [place] 0.5 mg STK-MED ONCE IH 12/26/17 18:08 12/26/17 18:09 DC 12/26/17 18:11 0.5 MG Methylprednisolone Sodium Succinate 125 mg ONCE ONCE IVP 12/26/17 19:00 12/26/17 19:01 DC 12/26/17 19:01 125 MG Vital Signs/I&O 12/26/17 12/26/17 12/26/17 12/26/17 16:40 17:48 18:04 18:05 Temp 97.8 Pulse 86 Resp 18 B/P (MAP) 145/93 (110) Pulse Ox 99 99 99 99 O2 Delivery Room Air Nasal Cannula Nasal Cannula O2 Flow Rate 3.00 3.00 12/26/17 12/26/17 18:15 20:53 Temp 97.8 Pulse 99 Resp 18 B/P (MAP) 131/96 (108) Pulse Ox 96 96 O2 Delivery Nasal Cannula O2 Flow Rate 3.00 Capillary Refill : Less Than 3 Seconds Blood Pressure Mean: 110 Progress Note : Progress Note GIVEN HOUR LONG NEB TREATMENT--INCREASED AERATION IN ALL LUNG HORNER, AND NO LONGER HAS WHEEZING. PT STILL WITH SOME LABORED RESPIRATORY EFFORT BUT DIFFICULT TER DISCERN DUE TO PT'S CONTINUED AND CONSTANT GENERALIZED BODY MOVEMENTS, ESPECIALLY SHOULDERS/UPPER BODY, ROCKING BACK AND FORTH, ROLLING FROM SIDE TO SIDE, ETC. . BUT THIS IS A FAIRLY NORMAL BREATHING PATTERN AND BODY MOVEMENTS FOR PT--LONG HISTORY OF METH ABUSE. . PT STATES SHE WANTS TO GO HOME. O2 SATS REMAINED 985 ON 3L/NC ECG Initial ECG Impression Date: Dec 26, 2017 Initial ECG Impression Time: 18:06 Initial ECG Rate: 79 Initial ECG Rhythm: Normal Sinus Diagnostic Imaging Comments CXR--CARDIOMEGALY, NO ACUTE PROCESS, PER RADIOLOGIST REPORT @ 1857 Reviewed: Reviewed by Me Departure Impression Primary Impression: COPD with exacerbation Disposition: HOME, SELF-CARE Condition: Improved Departure-Patient Inst. Referrals: [facility] (PCP) Primary Care Physician ALIZA CARTER (Family) Primary Care Physician Patient Instructions: Exacerbation of COPD (DC) Add. Discharge Instructions: HOME, REST TAKE YOUR MEDICATIONS AND USE YOUR NEBULIZERS AND INHALERS PRESCRIBED FOLLOW UP WITH DR. THOMAS ON THURSDAY FOR FURTHER CARE RETURN TO ER IF WORSE All discharge instructions reviewed with patient and/or family. Voiced understanding. Scripts Prednisone (Prednisone) 5 Mg Tablet 5 MG PO UD, #78 TAB 12 PILLS DAY 1, THEN DECREASE BY 1 PILL A DAY UNTIL GONE Prov: TIMOTHY HUGHES DO 12/26/17 TIMOTHY HUGHES DO Dec 26, 2017 18:24
[2017-12-26 18:36] LABS: ALANINE AMINOTRANSFERASE 11 U/L (0-55); ALBUMIN 4.1 GM/DL (3.2-4.5); ALKALINE PHOSPHATASE 77 U/L (40-136); BILIRUBIN,TOTAL 0.2 MG/DL (0.1-1.0); BUN/CREATININE RATIO 13; CALCIUM 9.7 MG/DL (8.5-10.1); CARBON DIOXIDE 23 MMOL/L (21-32); CHLORIDE 107 MMOL/L (98-107); CREATININE SERUM 0.93 MG/DL (0.60-1.30); GFR ESTIMATED > 60; GLUCOSE 101 MG/DL (70-105); POTASSIUM 3.8 MMOL/L (3.6-5.0); SODIUM 141 MMOL/L (135-145); TOTAL PROTEIN 6.7 GM/DL (6.4-8.2)
--- NOTE | 2017-12-26 18:53 | Diagnostic Imaging Report ---
INDICATION: Difficulty breathing and shortness of breath. Comparison made with prior examination 12/06/2017. FINDINGS: There is cardiomegaly. Lungs are clear. No pleural effusion or pneumothorax. Mediastinum is unremarkable. IMPRESSION: 1. No acute cardiopulmonary abnormality. 2. Cardiomegaly. Dictated by: Dictated on workstation # [id number]
[2017-12-26] MEDS ORDERED: methylPREDNISolone 125 MG (Solu-MEDROL) VIAL IVP ONE (19:00)
[2017-12-26] MEDS ORDERED: PRED5TAB PO (19:48)
[2017-12-26 20:04] LABS: AMPHETAMINE SCREEN, URINE POSITIVE (NEGATIVE); BARBITURATE SCREEN URINE NEGATIVE (NEGATIVE); BENZODIAZEPINES SCREEN URINE NEGATIVE (NEGATIVE); CANNABINOID SCREEN, URINE NEGATIVE (NEGATIVE); COCAINE SCREEN URINE NEGATIVE (NEGATIVE); METHADONE STAT NEGATIVE (NEGATIVE); METHAMPHETAMINE SCREEN URINE S NEGATIVE (NEGATIVE); OPIATE SCREEN URINE NEGATIVE (NEGATIVE); OXYCODONE STAT NEGATIVE (NEGATIVE); PROPOXYPHENE STAT NEGATIVE (NEGATIVE); TRICYCLIC ANTIDEPRESSANTS SCRE NEGATIVE (NEGATIVE)
[2017-12-26 20:15] LABS: BILIRUBIN,URINE NEGATIVE (NEGATIVE); CLARITY,URINE CLEAR; COLOR,URINE YELLOW; GLUCOSE, URINE (UA) NEGATIVE (NEGATIVE); KETONES,URINE NEGATIVE (NEGATIVE); LEUKOCYTE ESTERASE ,URINE NEGATIVE (NEGATIVE); NITRITE,URINE NEGATIVE (NEGATIVE); PH,URINE 6 (5-9); PROTEIN,URINE NEGATIVE (NEGATIVE); UROBILINOGEN,URINE NORMAL (NORMAL)
[2017-12-26 20:41] LABS: BACTERIA,URINE NEGATIVE /HPF; WBC,URINE RARE /HPF
[2017-12-26 20:53] VITALS: BP 131/96
== END 2017-12-26 20:53 | disposition home or self-care (01) ==
LOC: EDUNIT# 16:36 → ER 16:37
DX: J44.1 Chronic obstructive pulmonary disease with (acute) exacerbation (principal); G47.30 Sleep apnea, unspecified; I10 Essential (primary) hypertension; E11.9 Type 2 diabetes mellitus without complications; F41.9 Anxiety disorder, unspecified; F31.9 Bipolar disorder, unspecified; G43.909 Migraine, unspecified, not intractable, without status migrainosus; F15.10 Other stimulant abuse, uncomplicated; F17.210 Nicotine dependence, cigarettes, uncomplicated; Z98.51 Tubal ligation status; Z87.19 Personal history of other diseases of the digestive system; Z91.5 Personal history of self-harm; Z99.81 Dependence on supplemental oxygen; Z88.8 Allergy status to other drugs, medicaments and biological substances; Z79.51 Long term (current) use of inhaled steroids; Z80.1 Family history of malignant neoplasm of trachea, bronchus and lung; Z82.49 Family history of ischemic heart disease and other diseases of the circulatory system; Z79.82 Long term (current) use of aspirin; Z79.52 Long term (current) use of systemic steroids; Z79.84 Long term (current) use of oral hypoglycemic drugs; Z77.22 Contact with and (suspected) exposure to environmental tobacco smoke (acute) (chronic)
CPT/HCPCS: 36415; 71045; 80053; 80306; 81000; 83605; 83880; 84703; 85025; 87040; 87804; 93005; 93041; 94640; 94644

== ENCOUNTER 2018-01-01 11:26 | Emergency (ER) | payer SELFPAY ==
[~2018-01-01] VITALS: Ht 175.3 cm; Wt 90.2 kg
[~2018-01-01 11:26] MED LIST changes: +PRED5TAB PO
--- OUTSIDE RECORDS SUMMARY | 2018-01-01 12:24 | XMS REPORT ---
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 Name Role Phone ALIZA CARTER Unavailable PROBLEMS Type Condition ICD9-CM Code YIU29-DR Code Onset Dates Condition Status SNOMED Code Problem Migraine without aura and without status migrainosus, not intractable G43.009 Active 894774312 Problem Chronic bronchitis, unspecified chronic bronchitis type J42 Active 07488776 Problem Other emphysema J43.8 Active 94256661 Problem Chronic obstructive pulmonary disease, unspecified COPD type J44.9 Active 05937272 Problem COPD with exacerbation J44.1 Active 256147376 Problem Diabetes E11.9 Active 481312336 Problem Methamphetamine use disorder, moderate, 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 Active 39346049 Problem Anxiety F41.9 Active 25959756 Problem Intractable cyclical vomiting with nausea G43.A1 Active 83629800 Problem Tobacco abuse Z72.0 Active 27796263 Problem Migraine G43.909 Active 76301270 Problem Examination of eyes and vision V72.0 Active 065633990 Problem 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 Active Problem Memory loss R41.3 Active 48411291 Problem Bipolar disorder, unspecified F31.9 Active 82711944 Problem TMJ (sprain of temporomandibular joint) S03.4XXA Active 17981962 Problem Bipolar disorder with depression F31.30 Active 68712058 Problem Chronic constipation K59.09 Active 799152006 Problem Generalized anxiety disorder F41.1 Active 78342520 ALLERGIES No Information ENCOUNTERS Encounter Location Date Diagnosis [facility] [address] [facility] [id number] [address] Nov, [facility] [id number] [address] Nov, COPD with exacerbation J44.1 and Urinary tract infection without hematuria, site unspecified N39.0 [facility] [address] [address] Nov, Chronic obstructive pulmonary disease, unspecified COPD type J44.9 [facility] [address] [address] Oct, [facility] [id number] [place] [address] 43882- 9527 Oct, [facility] [id number] [place] [address] 92729- 5484 Oct, [facility] [id number] [place] [address] 15380- 2244 Oct, [facility] [id number] [place] [address] 65352- 5979 Oct, Thrush B37.0 [facility] [id number] [place] [address] 00151- 9445 Sep, COPD with exacerbation J44.1 and Anxiety F41.9 [facility] [id number] [address] Sep, [facility] [address] [address] 4[address] Sep, [facility] [address] [address] 1104 Sep, [facility] [address] [address] Sep, Acute congestive heart failure, unspecified heart failure type I50.9 and Anxiety disorder, unspecified F41.9 [facility] [address] [address] 5[address] Sep, Heart failure, unspecified HF chronicity, unspecified heart failure type I50.9 [facility] [address] [address] 4[address] Sep, [facility] [address], [place] [address] 6595 Aug, Chronic obstructive pulmonary disease with acute exacerbation J44.1 [facility] [address] [address] 8[address] Aug, [facility] [address] [address] 7964 Aug, [facility] [address] [address] July, [facility] [address] [place] [address] 803776- 8131 July, [facility] [address] [address] 29[address] July, Diabetes E11.9 and Chronic obstructive pulmonary disease with acute exacerbation J44.1 [facility] [address] [place] [address] 14316- 5132 Jun, Chronic obstructive pulmonary disease with acute exacerbation J44.1 ; Diabetes E11.9 and Tobacco abuse Z72.0 [facility] [address] [address] 2964 Jun, [facility] [address] [address]- 7351 Jun, [facility] [address], [place] [address] 5567 May, [facility] [address], [place] [address] 5[address] May, [facility] [address], [place] [address] 17 May, 2017 [facility] [address] [address] 16 May, 2017 [facility] [address] [address] 5[address] 15 May, 2017 [facility] [id number] [place] [address] 31052- 1228 14 May, 2017 Diarrhea, unspecified type R19.7 and Intractable cyclical vomiting with nausea G43.A1 [facility] [id number] [place] [address] 07668- 9624 12 May, 2017 [place] [address] 56919- 7340 05 May, 2017 [facility] [address] 78761- 1506 28 Apr, 2017 COPD exacerbation J44.1 ; Esophageal candidiasis B37.81 ; Other acute gastritis with hemorrhage K29.01 and Acute posthemorrhagic anemia D62 [place] [id number] [place] [address] 82026- 7673 21 Apr, 2017 Viral illness B34.9 and COPD exacerbation J44.1 [facility] [id number] [place] [address] 84559 -5031 Apr, Shortness of breath R06.02 and Pneumonia of both lower lobes due to infectious organism J18.9 [facility] [address] [place] [id number] [place] [address] 66578 -8264 Mar, COPD with acute exacerbation J44.1 [place] [id number] [place] [address] 22932- 7497 Mar, Chronic obstructive pulmonary disease with acute exacerbation J44.1 and Diabetes E11.9 [facility] [id number] [place] [address] 78883- 5888 Mar, [place] [address] 39886- 4026 Mar, [facility] [id number] [place] [address] 64710 -9387 Mar, COPD exacerbation J44.1 [place] [address] 11615- 6202 Mar, [facility] [address] [place] [address] 99728- 3691 Mar, Migraine G43.909 ; Hypokalemia E87.6 and Type 2 diabetes mellitus without complications E11.9 [facility] [address] [place] [address] 50613- 9030 Feb, [facility] [id number] [place] [address] 66654- 7680 Feb, [facility] [id number] [place] [address] 50059- 9012 Feb, Methamphetamine use disorder, moderate, 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 ; Major depressive disorder, recurrent, moderate F33.1 ; Anxiety disorder, unspecified F41.9 and Tobacco abuse Z72.0 [place] [id number] [place] [address] 34623- 5861 Jan, Major depressive disorder, recurrent, moderate F33.1 [place] [id number] [place] [address] 25330- 3920 16 Jan, 2017 [facility] [id number] [place] [address] 43466- 2713 Jan, [facility] [address] [place] [address] 62912- 4040 Jan, Major depressive disorder, recurrent, moderate F33.1 [facility] [address] [place] [address] 51061- 4468 Jan, Major depressive disorder, recurrent, moderate F33.1 ; Anxiety disorder, unspecified F41.9 ; Methamphetamine use disorder, moderate, 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 and Tobacco abuse Z72.0 [facility] [address] [place] [address] 23828- 8356 07 Jan, 2017 [facility] [address] [place] [address] 82686- 1214 06 Jan, 2017 Chronic obstructive pulmonary disease with acute exacerbation J44.1 and Diabetes E11.9 [facility] [address], [place] [address]- 5832 Jan, [facility] [id number] [place] [address] 05960- 5357 Jan, [facility] [id number] [place] [address] 48822- 0929 Dec, Acute respiratory failure with hypoxia J96.01 ; Chronic bronchitis, unspecified chronic bronchitis type J42 and Tobacco use Z72.0 [facility] [id number] [place] [address] 52912- 8227 Dec, [facility] [id number] [place] [address] [id number] Nov, Dental caries K02.9 and Dental examination Z01.20 [facility] [id number] [place] [address] 29277- 3797 Nov, Major depressive disorder, recurrent, moderate F33.1 ; Anxiety disorder, unspecified F41.9 and 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 [facility] [id number] [place] [address] [id number] Oct, Dental examination Z01.20 [facility] [id number] [place] [address] 60779- 6127 Oct, [facility] [id number] [place] [address] 01387- 6470 Oct, Diabetes E11.9 and Thrush B37.0 [facility] [id number] [place] [address] 49960- 7142 Oct, [facility] [id number] [place] [address] 78440- 7791 Oct, [facility] [id number] [place] [address] 44990- 8147 Oct, [facility] [id number] [place] [address] 41894- 7846 Sep, Major depressive disorder, recurrent, moderate F33.1 ; Anxiety disorder, unspecified F41.9 and Bipolar disorder, unspecified F31.9 [facility] [id number] [place] [address] 78965- 9413 Sep, Acute exacerbation of chronic obstructive pulmonary disease (COPD) J44.1 and Migraine G43.909 [facility] [id number] [place] [address] 33829- 8307 Sep, [facility] [address] [id number] Sep, [facility] [address] 03242- 4203 Sep, Acute exacerbation of chronic obstructive pulmonary disease (COPD) J44.1 [facility] [id number] [place] [address] 89538 -4049 Sep, Acute exacerbation of chronic obstructive pulmonary disease (COPD) J44.1 [facility] [id number] [place] [address] 81162- 4299 Aug, [facility] [id number] [place] [address] 84474- 3765 Aug, Major depressive disorder, recurrent, moderate F33.1 ; Anxiety disorder, unspecified F41.9 and 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 [facility] [id number] [place] [address] 23161- 5145 Aug, Wheezing R06.2 ; Non morbid obesity due to excess calories E66.09 ; Migraine without aura and without status migrainosus, not intractable G43.009 and Tobacco abuse Z72.0 [facility] [address] [place] [address] [id number] Aug, 2016 Encounter for dental examination Z01.20 [facility] [id number] [place] [address] 38382- 8203 02 Aug, 2016 Major depressive disorder, recurrent, moderate F33.1 ; Anxiety disorder, unspecified F41.9 and 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 [place] [id number] [place] [address] 01610- 3699 July, [facility] [id number] [place] [address] 92724- 7443 July, [place] [id number] [place] [address] 14119- 5608 July, [place] [id number] [place] [address] 41342- 9416 July, Diabetes E11.9 [place] [id number] [place] [address] 71724- 0422 Jun, Major depressive disorder, recurrent, moderate F33.1 [place] [id number] [place] [address] 71276- 0719 Jun, Major depressive disorder, recurrent, moderate F33.1 ; 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 ; Generalized anxiety disorder F41.1 and Bipolar disorder, unspecified F31.9 [place] [id number] [place] [address] 59278- 6886 Jun, Diabetes E11.9 ; Migraine G43.909 ; Thrush B37.0 and Wheezing R06.2 [facility] [address] [place] [address] [id number] Jun, Dental examination Z01.20 [facility] [address] [place] [address] 24069- 7742 Jun, [place] [id number] [place] [address] 93065- 8833 Jun, Major depressive disorder, recurrent, moderate F33.1 ; Anxiety disorder, unspecified F41.9 and 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 [place] [id number] [place] [address] 65540- 0270 Jun, [facility] [id number] [place] [address] 18366- 6851 Jun, Wheezing R06.2 [facility] [id number] [place] [address] [id number] Jun, Dental caries K02.[address] 81502- 4825 Jun, Major depressive disorder, recurrent, moderate F33.1 ; Anxiety disorder, unspecified F41.9 and Other stimulant dependence with unspecified stimulant-induced disorder F15.[address] 871944- 8369 Jun, RLQ abdominal pain R10.31 ; Diabetes E11.9 ; Obesity, unspecified obesity severity, unspecified obesity type E66.9 ; Wheezing R06.2 and Abnormal urinalysis R82.[address] 24728- 3627 May, [place] [id number] [place] [address] 52950- 0602 May, Well woman exam Z01.419 ; Breast cancer screening Z12.39 ; Cervical cancer screening Z12.4 ; Urinary frequency R35.0 ; Edema, unspecified type R60.9 and Chronic constipation K59.09 [place] [id number] [place] [address] 57505- 2168 May, Major depressive disorder, recurrent, moderate F33.1 ; Anxiety disorder, unspecified F41.9 and 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 [facility] [id number] [place] [address] [id number] May, Dental examination Z01.20 [place] [id number] [place] [address] 17091- 1881 May, [place] [address] 23857- 5830 May, [place] [address], [place] [address]- 1091 May, Chronic constipation K59.09 [place] [address] [place] [address] 32393- 8693 Apr, [place] [address] [place] [address] 52359- 0250 Apr, Major depressive disorder, recurrent, moderate F33.1 ; Anxiety disorder, unspecified F41.9 and 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 [place] [address] [place] [address] 67227- 2237 Apr, [place] [id number] [place] [address] 97136- 7393 Mar, Major depressive disorder, recurrent, moderate F33.1 [place] [id number] [place] [address] 13658- 0366 Mar, Major depressive disorder, recurrent, moderate F33.1 ; Generalized anxiety disorder F41.1 and Bipolar I disorder, most recent episode depressed with anxious distress F31.30 [place] [address] [place] [address] 53322- 9394 Mar, Diabetes E11.9 ; Non morbid obesity due to excess calories E66.09 ; Breast cancer screening Z12.39 and Encounter for immunization Z23 [place] [address] [place] [address] 10831- 8324 Mar, Major depressive disorder, recurrent, moderate F33.1 ; Anxiety disorder, unspecified F41.9 and 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 [place] [address], [place] [address]- 0420 Mar, [place] [address] [place] [address] 12640- 4253 Feb, Major depressive disorder, recurrent, moderate F33.1 ; Anxiety disorder, unspecified F41.9 and 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 [facility] [id number] [place] [address] 26593- 7717 Feb, [facility] [id number] [place] [address] 999822- 2685 Feb, [facility] [id number] [place] [address] 09201- 0195 Jan, Major depressive disorder, recurrent, moderate F33.1 ; Generalized anxiety disorder F41.1 and Bipolar disorder, current episode depressed, severe, without psychotic features F31.4 [facility] [id number] [place] [address] 621560- 5240 Jan, Major depressive disorder, recurrent, moderate F33.1 ; Anxiety disorder, unspecified F41.9 and 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 [facility] [id number] [place] [address] 58042- 1979 16 Jan, 2016 Bronchitis J40 [facility] [id number] [place] [address] 75687- 5912 Jan, [facility] [id number] [place] [address] 38032- 1648 Jan, [facility] [id number] [place] [address] 24445- 1796 Jan, Elbow injury, right, initial encounter S59.901A ; Multiple contusions T14.8 and Cervical strain, acute, initial encounter S16.1XXA [facility] [id number] [place] [address] 71873- 5967 Dec, Major depressive disorder, recurrent, moderate F33.1 ; Generalized anxiety disorder F41.1 and Bipolar disorder with depression F31.30 [facility] [address] [place] [address] 13343- 1681 Dec, [facility] [id number] [place] [address] 51618- 2556 Dec, [facility] [id number], [place] [address]- 9482 Dec, [facility] [address] [address]- 3020 Dec, [facility] [address], [place] [address]- 4818 Dec, Yeast infection B37.9 [facility] [id number] [place] [address] 39049- 2108 Dec, Pneumonia of both lungs due to methicillin resistant Staphylococcus aureus (MRSA), unspecified part of lung J15.212 and Benzodiazepine overdose, accidental or unintentional, subsequent encounter T42.4X1D [place] [address] [address]- 5638 Dec, [place] [id number] [place] [address] 57573- 0515 Dec, [facility] [address] [place] [address] 47715- 7343 Dec, Knee pain, left M25.562 and Edema, unspecified type R60.9 [facility] [address] [address]- 2777 Dec, [facility] [address] [address]- 2633 Dec, Anxiety disorder, unspecified F41.9 and Bipolar disorder, unspecified F31.9 [facility] [address] [place] [address] 37013- 4893 Nov, Major depressive disorder, recurrent, moderate F33.1 ; Anxiety disorder, unspecified F41.9 and 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 [facility] [address] [address]- 7598 Nov, [facility] [address] [place] [address] 41358- 0520 Nov, Migraine without aura and without status migrainosus, not intractable G43.009 [place] [id number] [place] [address] 57935- 1660 Nov, Migraine G43.909 [place] [id number] [place] [address] 57902- 9772 Nov, [place] [address] 94055- 7966 Nov, Major depressive disorder, recurrent, moderate F33.1 ; Anxiety disorder, unspecified F41.9 and 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 [place] [address] 88663- 6301 Oct, Chronic constipation K59.09 and Obesity, unspecified obesity severity, unspecified obesity type E66.9 [place] [address] 91018- 6521 Oct, Obesity, unspecified obesity severity, unspecified obesity type E66.9 ; Chronic constipation K59.09 and Anxiety disorder, unspecified F41.9 [place] [id number] [place] [address] 56527- 9637 Oct, [place] [id number] [place] [address] 03621- 0787 Sep, Diabetes E11.9 ; Edema, unspecified type R60.9 ; Varicose vein of leg I83.90 and Obesity, unspecified obesity severity, unspecified obesity type E66.9 [place] [id number] [place] [address] 95246- 7655 Sep, Edema, unspecified type R60.9 ; Diabetes E11.9 and Knee pain , left M25.562 [place] [id number] [place] [address] 87812- 2073 Sep, [place] [id number] [place] [address] 21255- 5159 Sep, [facility] [address] [place] [address] 64820- 0069 Sep, Major depressive disorder, recurrent, moderate F33.1 ; Generalized anxiety disorder F41.1 and Bipolar disorder, unspecified F31.9 [facility] [address] [place] [address] 18104- 6526 Aug, Chondromalacia of left knee M94.262 [facility] [id number] [place] [address] [id number]- [id number] Aug, Major depressive disorder, recurrent, moderate F33.1 ; Anxiety disorder, unspecified F41.9 and 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 [facility] [id number] [place] [address] [id number] Aug, [facility] [id number] [place] [address] [id number]- [id number] Aug, Osteoarthritis of left knee M17.9 [facility] [id number] [place] [address] [id number] Aug, [facility] [facility] [id number] [place] [address] 34076- 4442 July, Major depressive disorder, recurrent, moderate F33.1 ; Anxiety disorder, unspecified F41.9 and 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 [facility] [id number] [place] [address] 99846- 7755 July, [facility] [id number] [place] [address] 24195- 7172 July, Chronic constipation K59.09 [facility] [id number] [place] [address] 70172- 3501 Jun, [facility] [id number] [place] [address] 87471- 0273 Jun, [facility] [id number] [place] [address] 55562- 6497 14 Jun, 2015 Osteoarthritis of left knee M17.9 [address] 13174- 6820 Jun, [place] [address] 41353- 6249 Jun, Generalized anxiety disorder F41.1 ; Bipolar disorder, unspecified F31.9 and Major depressive disorder, recurrent, moderate F33.1 [address] [address] 77347- 8626 Jun, Migraine G43.909 [address] [address] 80817- 5673 Jun, Left knee pain M25.562 ; Chronic constipation K59.09 ; Dry mouth R68.2 ; Yeast vaginitis B37.3 and Memory loss R41.3 [place] [address] 68090- 5970 Jun, [place] [address] 87871- 1321 May, [place] [address] 87859- 8207 May, [place] [id number] [place] [address] 06552- 7842 May, [place] [id number] [place] [address] 72195- 0968 May, [place] [id number] [place] [address] 82864- 6311 May, Acute bronchitis with COPD J44.0 ; Knee pain, left M25.562 and Encounter for tobacco use cessation counseling Z71.6 [place] [id number] [place] [address] 97246- 2594 May, [place] [address] 68812- 0518 Apr, Diabetes E11.9 ; TMJ (sprain of temporomandibular joint) S03.4XXA ; Tobacco abuse Z72.0 ; Migraine G43.909 and Anxiety F41.9 [facility] [id number] [place] [address] 76800- 9197 Apr, Generalized anxiety disorder F41.1 and Bipolar disorder, unspecified F31.9 [place] [id number] [place] [address] 20011- 6591 Apr, Major depressive disorder, recurrent, moderate F33.1 ; Anxiety disorder, unspecified F41.9 and 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 [place] [id number] [place] [address] 11877- 6630 Apr, [place] [id number] [place] [address] 08782- 9205 Mar, [facility] [id number] [place] [address] 89109- 9414 Feb, [place] [address] 857866- 0324 14 Feb, 2015 Major depressive disorder, recurrent, moderate F33.1 ; Anxiety disorder, unspecified F41.9 and 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 [place] [id number] [place] [address] 32172- 7101 Feb, [facility] [id number] [place] [address] 09117- 9242 Feb, Generalized anxiety disorder F41.1 and Bipolar disorder, unspecified F31.9 [place] [id number] [place] [address] 6916 Jan, [facility] [id number] [place] [address] 25205- 8231 Jan, [facility] [address] [place] [address]- 7590 Jan, Bipolar disorder, unspecified F31.9 and Generalized anxiety disorder F41.1 [facility] [address] 08233- 9425 Dec, [facility] [id number] [place] [address] 21146- 0810 Dec, Bipolar disorder, unspecified F31.9 and Generalized anxiety disorder F41.1 [facility] [id number] [place] [address] 37125- 6280 Dec, Generalized anxiety disorder F41.1 and Major depressive disorder, recurrent, moderate F33.1 [place] [address] 91805- 3587 Oct, Headache 784.0 ; Cough 786.2 ; Vomiting and diarrhea 787.03 and Dysuria 788.1 [place] [address] 38685- 6614 Aug, [facility] [address] 62418- 7276 Aug, Headache 784.0 and Shortness of breath 786.05 [facility] [id number] [place] [address] 30541- 6417 Aug, [place] [id number] [place] [address] 94306- 1264 Aug, Migraine 346.90 [facility] [id number] [place] [address] 12483- 0294 Jun, [facility] [address] 60769- 2473 Jun, [facility] [id number] [place] [address] 18173- 0577 May, [facility] [id number] [place] [address] 40309- 7188 May, [facility] [place] [facility] [address] [id number] [place] [address]- 8991 May, [facility] [place] [facility] [address] [id number] [place] [address]- 4040 May, [facility] [place] [facility] [address] [id number] [place] [address]- 5544 May, [facility] [place] [facility] [address] [id number] [place] [address]- 6371 May, [facility] [place] [facility] [address] [id number] [place] [address]- 0538 Apr, [facility] [place] [facility] [address] [id number] [place] [address]- 3771 Apr, [facility] [place] [facility] [address] [facility] [id number] [place] [address]- 5919 Apr, [facility] [place] [facility] [address] [id number] [place] [address]- 0818 Apr, [facility] [place] [facility] [address] [id number] [place] [address]- 6837 Apr, [facility] [place] [facility] [address] [id number] [place] [address]- 5279 Mar, [facility] [place] [facility] [address] [id number] [place] [address]- 8771 Mar, [facility] [place] [facility] [address] [id number] [place] [address]- 0006 Mar, [facility] [place] [facility] [address] [id number] [place] [address]- 5655 Mar, [facility] [place] [facility] [address] [id number] [place] [address]- 5236 Feb, [facility] [place] [facility] [address] [id number] [place] 3253 Feb, [facility] [place] [facility] [address] [id number] [place] [address]- 2835 Feb, [facility] [place] [facility] [address] [id number] [place] [address]- 6041 18 Feb, 2014 [facility] [place] [facility] [address] [id number] [place] 2461 Feb, [facility] [place] [facility] [address] [id number] [place] [address]- 6710 Feb, [facility] [place] [facility] [address] [id number] [place] [address]- 9183 Feb, [facility] [place] [facility] [address] [id number] [place] [address]- 7352 Feb, [facility] [place] [facility] [address] [id number] [place] [address]- 6208 Feb, [facility] [place] [facility] [address] [id number] [place] [address]- 0423 Feb, [facility] [place] [facility] [address] [id number] [place] [address]- 7748 Feb, [facility] [place] [facility] [address] [id number] [place] [address]- 8376 Feb, [facility] [place] [facility] [address] [id number] [place] [address]- 0560 Jan, [facility] [place] [facility] [address] [id number] [place] [address]- 9214 Jan, [facility] [place] [facility] [address] [id number] [address]- 7925 Dec, [facility] [place] [facility] [address] [id number] [place] [address]- 5778 Dec, [facility] [place] [facility] [address] [id number] [place] [address]- 8828 Dec, [facility] [place] [facility] [address] [id number] [place] [address]- 1667 Dec, [facility] [place] [facility] [address] [id number] [place] [address]- 1688 Dec, [facility] [place] [facility] [address] [id number] [place] [address]- 5039 Dec, [facility] [place] [facility] [address] [id number] [place] [address]- 0625 Sep, [facility] [place] [facility] [address] [id number] [place] [address]- 3827 Sep, [facility] [place] [facility] [address] [id number] [place] [address]- 6336 Sep, [facility] [place] [facility] [address] [id number] [place] [address]- 6155 Sep, [facility] [place] [facility] [address] [id number] [place] [address]- 1524 Sep, [facility] [place] [facility] [address] [id number] [place] [address]- 0180 Sep, [facility] [place] [facility] [address] [id number] [place] [address]- 6904 Sep, [facility] [place] [facility] [address] [id number] [place] [address]- 3920 Sep, [facility] [place] [facility] [address] [id number] [place] [address]- 9339 Sep, [facility] [place] [facility] [address] [id number] [place] [address]- 5813 Sep, [facility] [place] [facility] [address] [id number] [place] [address]- 5368 Aug, [facility] [place] [facility] [address] [id number] [place] [address]- 4722 Aug, [facility] [place] [facility] [address] [id number] [place] [address]- 0529 Aug, [facility] [place] [facility] [address] [id number] [place] [address] 9999 Aug, [facility] [place] [facility] [address] [id number] [place] [address]- 3353 Aug, [facility] [place] [facility] [address] [id number] [place] [address]- 8225 Aug, [facility] [place] [facility] [address] [id number] [place] [address]- 9380 Aug, [facility] [place] [facility] [address] [id number] [place] [address]- 8064 Aug, [facility] [place] [facility] [address] [id number] [place] [address]- 6072 Aug, [facility] [place] [facility] [address] [id number] [place] [address]- 2235 Aug, [facility] [place] [facility] [address] [id number] [place] [address]- 9249 Aug, [facility] [place] [facility] [address] [id number] [place] [address]- 3081 Aug, [facility] [place] [facility] [address] [id number] [place] [address]- 1087 Aug, [facility] [place] [facility] [address] [id number] [place] [address]- 2095 July, [facility] [place] [facility] [address] [id number] [place] [address]- 0643 July, [facility] [place] [facility] [address] [id number] [place] [address]- 5565 July, [facility] [place] [facility] [address] [id number] [place] [address]- 2211 July, [facility] [place] [facility] [address] [id number] [place] [address]- 4053 July, [facility] [place] [facility] [address] [id number] [place] [address]- 2980 July, [facility] [place] [facility] [address] [id number] [place] [address]- 6870 July, [facility] [place] [facility] [address] [id number] [place] [address]- 3129 Jun, [facility] [place] [facility] [address] [id number] [place] [address]- 3137 Jun, [facility] [place] [facility] [address] [id number] [place] [address]- 1102 Jun, [facility] [place] [facility] [address] [id number] [place] [address]- 5588 Jun, [facility] [place] [facility] [address] [id number] [place] [address]- 2688 Jun, [facility] [place] [facility] [address] [id number] [place] [address]- 2767 Jun, [facility] [place] [facility] [address] [id number] [place] [address]- 6369 Jun, [facility] [place] [facility] [address] [id number] [place] [address]- 6479 17 May, 2013 [facility] [place] [facility] [address] [id number] [place] [address]- 7604 17 May, 2013 [facility] [place] [facility] [address] [id number] [place] [address]- 3137 14 May, 2013 [facility] [place] [facility] [address] [id number] [place] [address]- 2136 14 May, 2013 [facility] [place] [facility] [address] [id number] [place] [address]- 2455 13 May, 2013 [facility] [place] [facility] [address] [id number] [place] [address]- 3165 13 May, 2013 [facility] [place] [facility] [address] [id number] [place] [address]- 7562 10 May, 2013 [facility] [place] [facility] [address] [id number] [place] [address]- 6562 10 May, 2013 [facility] [place] [facility] [address] [id number] [place] [address]- 6681 May, [facility] [place] [facility] [address] [id number] [place] [address]- 1959 Apr, [facility] [place] [facility] [address] [id number] [place] [address]- 9626 Apr, [facility] [place] [facility] [address] [id number] [place] [address]- 0817 Apr, [facility] [place] [facility] [address] [id number] [place] [address]- 7557 Apr, [facility] [place] [facility] [address] [id number] [place] [address]- 7466 Apr, [facility] [place] [facility] [address] [id number] [place] [address]- 5742 Apr, [facility] [place] [facility] [address] [id number] [place] [address]- 4554 Apr, [facility] [place] [facility] [address] [id number] [place] [address]- 1601 Apr, [facility] [place] [facility] [address] [id number] [place] [address]- 5781 Apr, [facility] [place] [facility] [address] [id number] [place] [address]- 5619 Apr, [facility] [place] [facility] [address] [id number], [place] [address]- 7021 Mar, [facility] [place] [facility] [address] [id number] [place] [address]- 2059 Mar, [facility] [place] [facility] [address] [id number] [place] [address]- 6313 Mar, [facility] [place] [facility] [address] [id number] [place] [address]- 9335 Mar, [facility] [place] [facility] [address] [id number] [place] [address]- 2720 07 Mar, 2013 [facility] [address] [id number] [place] [address]- 5621 Mar, [facility] [place] [facility] [address] [id number] [place] [address]- 2737 Mar, [facility] [place] [facility] [address] [id number] [place] [address]- 4781 Mar, [facility] [place] [facility] [address] [id number] [place] [address]- 1568 10 Feb, 2013 [facility] [place] [facility] [address] [id number] [place] [address]- 7163 Feb, [facility] [place] [facility] [address] [id number] [place] [address]- 5384 Jan, [facility] [place] [facility] [address] [id number] [place] [address]- 6379 18 Jan, 2013 [facility] [place] [facility] [address] [id number] [place] [address]- 6984 15 Jan, 2013 [facility] [place] [facility] [address] [id number] [place] [address]- 5324 Jan, [facility] [place] [facility] [address] [facility] [id number] [place] [address]- 7119 Jan, [facility] [place] [facility] [address] [id number] [place] [address]- 6439 Jan, [facility] [place] [facility] [address] [id number], [place] [address]- 6540 05 Jan, 2013 [facility] [place] [facility] [address] [id number] [place] [address]- 9065 05 Jan, 2013 [facility] [place] [facility] [address] [id number] [place] [address]- 7212 13 Dec, 2012 [facility] [place] [facility] [address] [id number], [place] [address]- 2571 10 Dec, 2012 [facility] [place] [facility] [address] [id number] [place] [address]- 0287 10 Dec, 2012 [facility] [place] [facility] [address] [id number] [place] [address]- 8301 20 Nov, 2012 [facility] [place] [facility] [address] [id number] [place] [address]- 8046 13 Nov, 2012 [facility] [place] [facility] [address] [id number] [place] [address]- 5609 12 Nov, 2012 [facility] [place] [facility] [address] [id number] [place] [address]- 9312 09 Nov, 2012 [facility] [place] [facility] [address] [id number] [place] [address]- 7588 Nov, [facility] [place] [facility] [address] [id number] [place] [address]- 0385 Nov, [facility] [place] [facility] [address] [id number] [place] [address]- 8289 Oct, [facility] [place] [facility] [address] [id number] [place] [address]- 0315 Oct, [facility] [place] [facility] [address] [id number] [place] [address]- 6490 Sep, [facility] [place] [facility] [address] [id number] [place] [address]- 6454 Sep, [facility] [place] [facility] [address] [id number] [place] [address]- 8514 Sep, [facility] [place] [facility] [address] [id number] [place] [address]- 6167 Sep, [facility] [place] [facility] [address] [id number] [place] [address]- 3119 Sep, [facility] [place] [facility] [address] [id number] [place] [address]- 1864 Sep, [facility] [place] [facility] [address] [id number] [place] [address]- 5436 Sep, [facility] [address] [id number] [place] [address]- 5844 14 Aug, 2012 [facility] [place] [facility] [address] [id number] [place] [address]- 9346 14 Aug, 2012 [facility] [place] [facility] [address] [id number] [place] [address]- 3509 Aug, [facility] [place] [facility] [address] [id number] [place] [address]- 5330 Aug, [facility] [address] [id number] [place] [address]- 8532 Aug, [facility] [place] [facility] [address] [id number] [place] [address]- 0430 Aug, [facility] [place] [facility] [address] [id number] [place] [address]- 2683 July, [facility] [place] [facility] [address] [id number] [place] [address]- 3419 July, [facility] [place] [facility] [address] [id number] [place] [address]- 5212 July, [facility] [place] [facility] [address] [id number] [place] [address]- 8748 July, [facility] [place] [facility] [address] [id number] [place] [address]- 8724 July, [facility] [place] [facility] [address] [id number] [place] [address]- 1954 July, [facility] [place] [facility] [address] [id number] [place] [address]- 5251 Jun, [facility] [place] [facility] [address] [id number] [place] [address]- 5637 Jun, [facility] [place] [facility] [address] [id number] [place] [address]- 8348 Jun, [facility] [place] [facility] [address] [id number] [place] [address]- 8381 Jun, [facility] [address] [id number] [place] [address]- 5559 Jun, [facility] [place] [facility] [address] [id number] [place] [address]- 1758 Jun, [facility] [address] [facility] [id number] [place] [address]- 2199 Jun, [facility] [place] [facility] [address] [id number] [place] [address]- 0351 May, [facility] [address] [facility] [id number] [place] [address] May, [facility] [address] [facility] [id number] [place] [address] 26 Apr, 2012 [facility] [place] [facility] [id number] [place] [address] Apr, [facility] [address] [facility] [id number] [place] [address] Apr, [facility] [id number] [place] [address] Apr, [facility] [address] [id number] [place] [address] 12 Apr, 2012 [facility] [place] [facility] [address] [facility] [id number] [place] [address] 08 Apr, 2012 [facility] [place] [facility] [address] [facility] [id number] [place] [address] 07 Apr, 2012 [facility] [place] [facility] [address] [facility] [id number] [place] [address] 07 Apr, 2012 [facility] [place] [facility] [address] [facility] [id number] [place] [address] 06 Apr, 2012 [facility] [place] [facility] [id number] [place] [address] Apr, [facility] [address] [id number] [place] [address] Apr, [facility] [address] [id number] [place] [address] Mar, [facility] [address] [id number] [place] [address] Mar, [facility] [address] [id number] [place] [address] Mar, [facility] [address] [id number] [place] [address] Mar, [facility] [address] [id number] [place] [address] Mar, [facility] [address] [id number] [place] [address] Mar, [facility] [address] [id number] [place] [address] Mar, [facility] [address] [id number] [place] [address]- [address] Mar, [facility] [address] [id number] [place] [address]270 Mar, [facility] [address] [id number] [address] Mar, [facility] [address] [id number] [place] [address] Mar, [facility] [address] [id number] [place] [address] Mar, [facility] [place] [facility] [address] [id number] [place] [address] Mar, [facility] [address] [id number] [place] [address] Feb, [facility] [place] [facility] [address] [id number] [place] [address] 20 Feb, 2012 [facility] [place] [facility] [address] [id number] [place] [address] Feb, [facility] [place] [facility] [address] [id number] [place] [address] Feb, [facility] [place] [facility] [address] [id number] [place] [address]36 Feb, [facility] [place] [facility] [address] [id number] [place] [address] Feb, [facility] [place] [facility] [address] [id number] [place] [address] Feb, [facility] [place] [facility] [address] [id number] [place] [address] Feb, [facility] [place] [facility] [address] [id number] [place] [address] Feb, [facility] [place] [facility] [address] [id number] [place] [address] Feb, [facility] [place] [facility] [address] [id number] [place] [address] Feb, [facility] [place] [facility] [address] [id number] [place] [address]65 Feb, [facility] [place] [facility] [address] [id number] [place] [address] Feb, [facility] [place] [facility] [address] [id number] [place] [address]- [address] Feb, [facility] [place] [facility] [address] [id number] [place] [address] 1636 Feb, [facility] [place] [facility] [address] [id number] [place] [address]- [address] Jan, [facility] [place] [facility] [address] [id number] [place] [address]- [address] Jan, [facility] [place] [facility] [address] [id number] [place] [address]- [address] Jan, [facility] [place] [facility] [address] [id number] [place] [address]- [address] Jan, [facility] [place] [facility] [address] [id number] [place] [address]- 1549 Dec, [facility] [place] [facility] [address] [id number] [place] [address]- 0414 Dec, [facility] [place] [facility] [address] [id number] [place] [address]- [address] Dec, [facility] [place] [facility] [address] [id number] [place] [address] Dec, [facility] [place] [facility] [address] [id number] [place] [address]- [address]858 Dec, [facility] [place] [facility] [address] [id number], [place] [address] Dec, [facility] [place] [facility] [address] [id number] [place] [address]- [address] Dec, [facility] [place] [facility] [address] [id number], [place] [address] Dec, [facility] [place] [facility] [address] [id number], [place] [address] Dec, [facility] [place] [facility] [address] [id number], [place] [address] Dec, [facility] [place] [facility] [address] [id number], [place] [address] Dec, [facility] [place] [facility] [address] [id number], [place] [address] Nov, [facility] [place] [facility] [address] [id number], [place] [address] 24 Nov, 2011 [facility] [place] [facility] [address] [id number] [place] [address]- 2021 20 Sep, 2011 [facility] [facility] [address] [id number] [place] [address] 19 Sep, 2011 [facility] [place] [facility] [address] [id number] [place] [address] 2546 17 Sep, 2011 [facility] [place] [facility] [address] [id number] [place] [address] 2546 16 Sep, 2011 [facility] [place] [facility] [address] [id number] [place] [address] 2546 14 Sep, 2011 [facility] [place] [facility] [address] [id number] [place] 13 Sep, 2011 [facility] [place] [facility] [address] [id number] [place] [address] 2546 12 Sep, 2011 [facility] [place] [facility] [address] [id number] [place] [address] 07 Sep, 2011 [facility] [place] [facility] [address] [id number] [place] [address] 2541 06 Sep, 2011 [facility] [place] [facility] [address] [id number] [place] [address] 06 Sep, 2011 [facility] [place] [facility] [address] [id number] [place] [address] 05 Sep, 2011 [facility] [place] [facility] [address] [id number] [place] [address] 2548 29 Oct, 2011 [facility] [place] [facility] [address] [id number] [place] [address] 2542 29 Oct, 2011 [facility] [place] [facility] [address] [id number] [place] [address] 2540 28 Oct, 2011 [facility] [place] [address] [id number] [place] [address] 28 Oct, 2011 [facility] [place] [facility] [address] [id number] [place] [address] 23 Oct2011 [facility] [place] [facility] [address] [id number] [place] [address] Oct, [facility] [place] [facility] [address] [id number] [place] [address]6 Oct, [facility] [place] [facility] [address] [id number] [place] [address]266 Oct, [facility] [place] [facility] [address] [id number] [place] [address] Oct, [facility] [place] [address] [id number] [place] [address] Oct, [facility] [place] [facility] [address] [id number] [place] [address] Oct, [facility] [address] [id number] [place] [address] Sep, [facility] [address] [id number] [place] [address]78 Sep, [facility] [address] [id number] [place] [address] Sep, [facility] [address] [id number] [place] [address] 16[address] Sep, [facility] [address] [id number] [place] [address] Sep, [facility] [facility] [address] [id number] [place] [address] Sep, [facility] [address] [id number] [place] [address] Aug, [facility] [place] [facility] [address] [id number] [place] [address] July, [facility] [address] [id number] [place] [address]84 July, [facility] [place] [facility] [address] [id number] [place] [address] 19 Jun, 2011 [facility] [address] [id number] [place] [address]- 67[address] Jun, [facility] [address] [id number] [place] [address]- 1499 Jun, [facility] [address] [id number] [place] [address] 57[address] Jun, [facility] [address] [id number] [place] [address] Jun, [facility] [facility] [address] [id number] [place] [address] Jun, [facility] [address] [id number] [place] [address] 1884 Jun, [facility] [address] [id number] [place] [address] 4[address] Jun, [facility] [place] [facility] [address] [id number] [place] [address] 9005 Jun, [facility] [address] [id number] [place] [address] 119[address] Jun, [facility] [address] [id number] [place] [address] 3538 Jun, [facility] [address] [id number] [place] [address] May, [facility] [address] [id number] [place] [address]239 16 May, 2011 [facility] [address] [id number] [place] [address]- [address]359 14 May, 2011 [facility] [address] [id number] [place] [address] 06 May, 2011 [facility] [address] [id number] [place] [address]- [address]881 28 Apr, 2011 [facility] [address] [id number] [place] [address]- 1145 28 Apr, 2011 [facility] [address] [id number] [place] [address] Apr, [facility] [address] [id number] [place] [address]- [address]16 Apr, [facility] [address] [id number] [place] [address]166 Apr, [facility] [address] [id number] [place] [address] 2545 Apr, [facility] [address] [id number] [place] [address]- 5316 Apr, [facility] [address] [id number] [place] [address]16 Apr, [facility] [address] [id number] [place] [address]326 Mar, [facility] [address] [id number] [place] [address] 1325 Mar, [facility] [address] [id number] [place] [address] Mar, [facility] [address] [id number] [place] [address]- 1773 Mar, [facility] [address] [id number] [place] [address]231 17 Mar, 2011 [facility] [address] [id number] [place] [address]- 9683 13 Mar, 2011 [facility] [address] [id number] [place] [address]- [address] Mar, [facility] [address] [id number] [place] [address] 407[address] Mar, [facility] [address] [id number] [place] [address] Mar, [facility] [address] [id number] [place] [address]- 7675 Mar, [facility] [address] [id number] [place] [address]- 2469 Mar, [facility] [address] [id number] [place] [address]- 1284 Mar, [facility] [address] [id number] [place] [address]- 8058 Mar, [facility] [address] [id number] [place] [address]- 6335 Mar, [facility] [facility] [address] [id number] [place] [address]- 7769 Mar, [facility] [address] [id number] [place] [address]- 1641 Mar, [facility] [address] [id number], [place] [address] Feb, [facility] [address] [id number] [place] [address]- 2488 Feb, [facility] [address] [id number] [place] [address]- 9360 Feb, [facility] [address] [id number], [place] [address] Jan, [facility] [address] [id number], [place] [address] 1739 Jan, [facility] [address] [id number] [place] [address]- 7080 Jan, [facility] [address] [id number], [place] [address]- 1392 Dec, [facility] [address] [id number] [place] [address]- 5046 Dec, [facility] [address] [id number], [place] [address] Nov, [facility] [address] [id number], [place] [address] Oct, [facility] [address] [id number], [place] [address]46 Oct, [facility] [address] [facility] [id number], [place] [address]- [address]46 Oct, [facility] [address] [id number], [place] [address] Sep, [facility] [address] [id number], [place] [address] Apr, [facility] [address] [id number], [place] [address] Feb, [facility] [address] [id number], [place] [address] Jan, IMMUNIZATIONS No Known Immunizations SOCIAL HISTORY Never Assessed REASON FOR VISIT medication refill PLAN OF CARE VITAL SIGNS MEDICATIONS Medication Instructions Dosage Frequency Start Date End Date Duration Status Diflucan 150 MG Orally one time. May repeat in 3 days if symptoms persist. 1 tablet Nov, Dec, 4 days Active RESULTS No Results PROCEDURES No [...] 2/2 Benzos OD, pneumonia MRSA, [facility], Hypokalemia-- [facility] 12/20/2015 Hospitalization History COPD exacerbation, Asthma-[facility] 09/21/16 Hospitalization History COPD-[facility] 12/30/2016 Hospitalization History [facility] [place] [facility]-last around 2006 or so. Hospitalization History [facility] for COPD x2 Mar 2017 Hospitalization History Upper GI bleed at apr 2017 Hospitalization History [facility]- COPD Exacerbation, diarrhea 05/23/2017 Hospitalization History COPD exacerbation-[facility] 06/13/17 Hospitalization History [facility] 09/09/2017 Hospitalization History COPD-[facility]--[facility] 11/2017
--- OUTSIDE RECORDS SUMMARY | 2018-01-01 12:25 | XMS REPORT ---
Author Author MARCELLUS TINOCO Organization [facility] Address [address] [place] [address] Care Team Providers Care Research Agricultural Engineer Name Role Phone MARCELLUS TINOCO Unavailable PROBLEMS Type Condition ICD9-CM Code [id number] Code Onset Dates Condition Status SNOMED Code Problem Migraine without aura and without status migrainosus, not intractable G43.009 Active 870788991 Problem Chronic bronchitis, unspecified chronic bronchitis type J42 Active 98843003 Problem Other emphysema J43.8 Active 67153184 Problem Chronic obstructive pulmonary disease, unspecified COPD type J44.9 Active 71485093 Problem COPD with exacerbation J44.1 Active 707509361 Problem Diabetes E11.9 Active 297316102 Problem Methamphetamine use disorder, moderate, 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 Active 27700488 Problem Anxiety F41.9 Active 70079216 Problem Intractable cyclical vomiting with nausea G43.A1 Active 57794154 Problem Tobacco abuse Z72.0 Active 58517637 Problem Migraine G43.909 Active 48778601 Problem Examination of eyes and vision V72.0 Active 793334440 Problem 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 Active Problem Memory loss R41.3 Active 49599236 Problem Bipolar disorder, unspecified F31.9 Active 87073523 Problem TMJ (sprain of temporomandibular joint) S03.4XXA Active 58351112 Problem Bipolar disorder with depression F31.30 Active 35908998 Problem Chronic constipation K59.09 Active 217635569 Problem Generalized anxiety disorder F41.1 Active 99045078 ALLERGIES Substance Reaction Event Type Date Status amitriptyline OD on medication, causes parasonias Non Drug Allergy Nov, Active Buspar 10 Mg Tablet made legs shaky Non Drug Allergy Nov, Active Benzodiazepines NARC ALERT Broke narc contract Non Drug Allergy Nov Active Narcotic NARC ALERT Broke Narc contract Non Drug Allergy Nov, Active ENCOUNTERS Encounter Location Date Diagnosis [facility] [address] [address] Nov, [facility] [address] [address] 17 Nov, 2017 COPD with exacerbation J44.1 and Urinary tract infection without hematuria, site unspecified N39.0 [facility] [address] [address] Nov, Chronic obstructive pulmonary disease, unspecified COPD type J44.9 [facility] [address] [address] Oct, [facility] [address] [address] Oct, [facility] [address] [address] 5[address] Oct, [facility] [address] [address] Oct, [facility] [address] [address] Oct, Thrush B37.0 [facility] [address] [address] Sep, COPD with exacerbation J44.1 and Anxiety F41.9 [facility] [address] [address] Sep, [facility] [id number] [address] Sep, [facility] [address] [address] 29[address] Sep, [facility] [address] [address] 39[address] Sep, Acute congestive heart failure, unspecified heart failure type I50.9 and Anxiety disorder, unspecified F41.9 [facility] [address] [facility] [id number] [address] Sep, Heart failure, unspecified HF chronicity, unspecified heart failure type I50.9 [facility] [address] [facility] [id number] [place] [address] Sep, [facility] [address] [facility] [id number] [address] Aug, Chronic obstructive pulmonary disease with acute exacerbation J44.1 [facility] [address] [facility] [id number] [address] Aug, [facility] [id number] [place] [address] 23550- 4907 Aug, [facility] [address] [address] 65[address] July, [facility] [address] [address] July, [facility] [address] [address] 4540 July, Diabetes E11.9 and Chronic obstructive pulmonary disease with acute exacerbation J44.1 [facility] [address] [address]- 4543 Jun, Chronic obstructive pulmonary disease with acute exacerbation J44.1 ; Diabetes E11.9 and Tobacco abuse Z72.0 [facility] [address] [address] 9[address] Jun, [facility] [address] [address] 1851 Jun, [facility] [address] [address] 6[address] May, [facility] [address] [address] 6535 May, [facility] [address] [place] [address] 02198 -5139 17 May, 2017 [facility] [id number] [place] [address] 23870- 6307 16 May, 2017 [facility] [id number] [place] [address] 55806- 1021 15 May, 2017 [facility] [id number] [place] [address] 51228- 4094 14 May, 2017 Diarrhea, unspecified type R19.7 and Intractable cyclical vomiting with nausea G43.A1 [facility] [id number] [place] [address] 12112- 4588 12 May, 2017 [facility] [address] [address]- 7322 05 May, 2017 [facility] [address] 26944- 4760 28 Apr, 2017 COPD exacerbation J44.1 ; Esophageal candidiasis B37.81 ; Other acute gastritis with hemorrhage K29.01 and Acute posthemorrhagic anemia D62 [facility] [id number] [place] [address] 63406- 8061 Apr, Viral illness B34.9 and COPD exacerbation J44.1 [facility] [id number] [place] [address] 24985 -5004 Apr, Shortness of breath R06.02 and Pneumonia of both lower lobes due to infectious organism J18.9 [facility] [id number] [place] [address] 09222 -8832 Mar, COPD with acute exacerbation J44.1 [facility] [address] [address]47- 2152 Mar, Chronic obstructive pulmonary disease with acute exacerbation J44.1 and Diabetes E11.9 [facility] [id number] [place] [address] 38744- 7218 Mar, [facility] [address] [place] [address]- 7793 Mar, [facility] [id number] [place] [address] 83008 -6580 Mar, COPD exacerbation J44.1 [facility] [id number] [place] [address] 23291- 7551 Mar, [facility] [id number] [place] [address] 75562- 0679 Mar, Migraine G43.909 ; Hypokalemia E87.6 and Type 2 diabetes mellitus without complications E11.9 [facility] [id number] [place] [address] 08920- 3800 Feb, [facility] [id number] [place] [address] 55293- 1055 Feb, [facility] [id number] [place] [address] 02351- 3162 Feb, Methamphetamine use disorder, moderate, 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 ; Major depressive disorder, recurrent, moderate F33.1 ; Anxiety disorder, unspecified F41.9 and Tobacco abuse Z72.0 [facility] [id number] [place] [address] 21663- 4232 30 Jan, 2017 Major depressive disorder, recurrent, moderate F33.1 [facility] [id number] [place] [address] 93860- 3140 16 Jan, 2017 [facility] [id number] [place] [address] 02768- 7555 Jan, [facility] [id number] [place] [address] 96957- 9653 Jan, Major depressive disorder, recurrent, moderate F33.1 [facility] [id number] [place] [address] 73255- 7576 Jan, Major depressive disorder, recurrent, moderate F33.1 ; Anxiety disorder, unspecified F41.9 ; Methamphetamine use disorder, moderate, 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 and Tobacco abuse Z72.0 [facility] [id number] [place] [address] 77087- 3768 Jan, [facility] [address] 74689- 5971 Jan, Chronic obstructive pulmonary disease with acute exacerbation J44.1 and Diabetes E11.9 [place] [address] 45507- 9100 Jan, [facility] [address] 29219- 2622 Jan, [facility] [address] 65987- 9211 Dec, Acute respiratory failure with hypoxia J96.01 ; Chronic bronchitis, unspecified chronic bronchitis type J42 and Tobacco use Z72.0 [place] [facility] [address] 11840- 6763 Dec, [facility] [address] [id number] Nov, Dental caries K02.9 and Dental examination Z01.20 [place] [facility] [address] 50183- 4088 Nov, Major depressive disorder, recurrent, moderate F33.1 ; Anxiety disorder, unspecified F41.9 and 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 [facility] [id number] [place] [address] [id number] Oct, Dental examination Z01.20 [facility] [address] 22968- 8471 Oct, [facility] [address] 78264- 4556 Oct, Diabetes E11.9 and Thrush B37.0 [place] [address] 34326- 3064 Oct, [facility] [address] [address]- 5086 Oct, [facility] [address] [place] [address] 74482- 9372 Oct, [facility] [address] [place] [address] 70412- 0924 Sep, Major depressive disorder, recurrent, moderate F33.1 ; Anxiety disorder, unspecified F41.9 and Bipolar disorder, unspecified F31.9 [facility] [address] [place] [address] 74450- 3010 Sep, Acute exacerbation of chronic obstructive pulmonary disease (COPD) J44.1 and Migraine G43.909 [facility] [id number] [place] [address] 38524- 0308 Sep, [facility] [id number] [place] [address] [id number] Sep, [facility] [id number] [place] [address] 45004- 1538 Sep, Acute exacerbation of chronic obstructive pulmonary disease (COPD) J44.1 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 [facility] [address] [place] [address] 56992- 4197 Aug, Wheezing R06.2 ; Non morbid obesity due to excess calories E66.09 ; Migraine without aura and without status migrainosus, not intractable G43.009 and Tobacco abuse Z72.0 [facility] [address] [place] [address] [id number] 14 Aug, 2016 Encounter for dental examination Z01.20 [facility] [id number] [place] [address] 12322- 0568 02 Aug, 2016 Major depressive disorder, recurrent, moderate F33.1 ; Anxiety disorder, unspecified F41.9 and 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 [facility] [id number] [place] [address] 08386- 5669 July, [facility] [address] 24283- 7142 July, [facility] [address] 36362- 8736 July, [facility] [id number] [place] [address] 95287- 0715 July, Diabetes E11.9 [facility] [id number] [place] [address] 06258- 8359 Jun, Major depressive disorder, recurrent, moderate F33.1 [facility] [id number] [place] [address] 23222- 7119 Jun, Major depressive disorder, recurrent, moderate F33.1 ; 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 ; Generalized anxiety disorder F41.1 and Bipolar disorder, unspecified F31.9 [facility] [id number] [place] [address] 71358- 7986 Jun, Diabetes E11.9 ; Migraine G43.909 ; Thrush B37.0 and Wheezing R06.2 [facility] [id number] [place] [address] [id number] 24 Jun, 2016 Dental examination Z01.20 [facility] [id number] [place] [address] 04458- 1329 21 Jun, 2016 [facility] [address] [address] Jun, Major depressive disorder, recurrent, moderate F33.1 ; Anxiety disorder, unspecified F41.9 and 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 [facility] [id number] [place] [id number]658 Jun, [facility] [address] 80785- 8949 Jun, Wheezing R06.2 [facility] [address] [id number] Jun, Dental caries K02.9 [place] [address] 56327- 5778 Jun, Major depressive disorder, recurrent, moderate F33.1 ; Anxiety disorder, unspecified F41.9 and 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 [place] [facility] [address] 48642- 2401 Jun, RLQ abdominal pain R10.31 ; Diabetes E11.9 ; Obesity, unspecified obesity severity, unspecified obesity type E66.9 ; Wheezing R06.2 and Abnormal urinalysis R82.90 [place] [facility] [id number] [place] [address] 39112- 3585 May, [place] [facility] [address] 70799- 6365 May, Well woman exam Z01.419 ; Breast cancer screening Z12.39 ; Cervical cancer screening Z12.4 ; Urinary frequency R35.0 ; Edema, unspecified type R60.9 and Chronic constipation K59.09 [place] [facility] [address] [id number]- 1733 May, Major depressive disorder, recurrent, moderate F33.1 ; Anxiety disorder, unspecified F41.9 and 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 [facility] [address] [id number] May, Dental examination Z01.20 [place] [address] [place] [address] 06772- 2097 May, [facility] [id number] [place] [address] 25506- 5304 May, [facility] [id number] [place] [address] 94368- 5695 May, Chronic constipation K59.09 [facility] [id number] [place] [address] 22241- 4898 Apr, [facility] [id number] [place] [address] 08895- 6148 Apr, Major depressive disorder, recurrent, moderate F33.1 ; Anxiety disorder, unspecified F41.9 and 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 [facility] [id number] [place] [address] 95212- 1958 Apr, [facility] [address] [place] [address] 78313- 1913 Mar, Major depressive disorder, recurrent, moderate F33.1 [place] [facility] [address] [place] [address] 73058- 4801 Mar, Major depressive disorder, recurrent, moderate F33.1 ; Generalized anxiety disorder F41.1 and Bipolar I disorder, most recent episode depressed with anxious distress F31.30 [place] [facility] [address] [place] [address] 37437- 0370 Mar, Diabetes E11.9 ; Non morbid obesity due to excess calories E66.09 ; Breast cancer screening Z12.39 and Encounter for immunization Z23 [facility] [address] [place] [address] 19891- 6048 Mar, Major depressive disorder, recurrent, moderate F33.1 ; Anxiety disorder, unspecified F41.9 and 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 [place] [address] [place] [address] 02295- 8998 Mar, [facility] [id number] [place] [address] 231724- 7584 Feb, Major depressive disorder, recurrent, moderate F33.1 ; Anxiety disorder, unspecified F41.9 and 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 [facility] [id number] [place] [address] 82000- 4320 Feb, [facility] [id number] [place] [address] 84817- 7691 Feb, [place] [id number] [place] [address] 55033- 4824 Jan, Major depressive disorder, recurrent, moderate F33.1 ; Generalized anxiety disorder F41.1 and Bipolar disorder, current episode depressed, severe, without psychotic features F31.4 [place] [id number] [place] [address] 14355- 2930 Jan, Major depressive disorder, recurrent, moderate F33.1 ; Anxiety disorder, unspecified F41.9 and 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 [place] [id number] [place] [address] 14343- 0097 16 Jan, 2016 Bronchitis J40 [place] [id number] [place] [address] 80985- 2583 Jan, [facility] [id number] [place] [address] 90005- 1816 Jan, [facility] [id number] [place] [address] 28905- 3365 Jan, Elbow injury, right, initial encounter S59.901A ; Multiple contusions T14.8 and Cervical strain, acute, initial encounter S16.1XXA [facility] [id number] [place] [address] 92581- 8713 Dec, Major depressive disorder, recurrent, moderate F33.1 ; Generalized anxiety disorder F41.1 and Bipolar disorder with depression F31.30 [facility] [id number] [address]- 8572 Dec, [facility] [id number] [address]- 0276 Dec, [facility] [address] [address]- 3983 Dec, [facility] [address] [address]- 5242 Dec, [facility] [address] [place] [address] 27532- 4086 Dec, Yeast infection B37.9 [facility] [address] [address]- 4318 Dec, Pneumonia of both lungs due to methicillin resistant Staphylococcus aureus (MRSA), unspecified part of lung J15.212 and Benzodiazepine overdose, accidental or unintentional, subsequent encounter T42.4X1D [place] [facility] [address] [address]- 4568 Dec, [facility] [facility] [address] [address]- 0400 Dec, [facility] [address] [address]- 9134 Dec, Knee pain, left M25.562 and Edema, unspecified type R60.9 [facility] [id number] [address]- 5660 Dec, [facility] [address] [address]- 3162 Dec, Anxiety disorder, unspecified F41.9 and Bipolar disorder, unspecified F31.9 [facility] [id number] [address]- 3270 Nov, Major depressive disorder, recurrent, moderate F33.1 ; Anxiety disorder, unspecified F41.9 and 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 [place] [address] [place] [address] 07241- 3195 Nov, [place] [id number] [place] [address] 86279- 9589 Nov, Migraine without aura and without status migrainosus, not intractable G43.009 [facility] [id number] [place] [address] 60188- 3958 Nov, Migraine G43.909 [place] [id number] [place] [address] 00387- 0431 Nov, [facility] [id number] [place] [address] 29595- 8350 Nov, Major depressive disorder, recurrent, moderate F33.1 ; Anxiety disorder, unspecified F41.9 and 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 [place] [id number] [place] [address] 87245- 9729 Oct, Chronic constipation K59.09 and Obesity, unspecified obesity severity, unspecified obesity type E66.9 [facility] [id number] [place] [address] 79705- 2131 Oct, Obesity, unspecified obesity severity, unspecified obesity type E66.9 ; Chronic constipation K59.09 and Anxiety disorder, unspecified F41.9 [place] [address] [place] [address] 84998- 4995 Oct, [facility] [id number] [place] [address] 10493- 5185 Sep, Diabetes E11.9 ; Edema, unspecified type R60.9 ; Varicose vein of leg I83.90 and Obesity, unspecified obesity severity, unspecified obesity type E66.9 [facility] [id number] [place] [address] 16015- 9059 Sep, Edema, unspecified type R60.9 ; Diabetes E11.9 and Knee pain , left M25.562 [facility] [address] [place] [address] 91183- 7433 Sep, [facility] [id number] [place] [address] 39915- 1807 Sep, [facility] [id number] [place] [address] 76819- 0416 Sep, Major depressive disorder, recurrent, moderate F33.1 ; Generalized anxiety disorder F41.1 and Bipolar disorder, unspecified F31.9 [facility] [id number] [place] [address] 64551- 4338 Aug, Chondromalacia of left knee M94.262 [facility] [id number] [place] [address] 11535- 0583 Aug, Major depressive disorder, recurrent, moderate F33.1 ; Anxiety disorder, unspecified F41.9 and 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 [facility] [id number] [place] [address] 91879- 8806 Aug, [facility] [id number] [place] [address] 83144- 8813 Aug, Osteoarthritis of left knee M17.9 [facility] [address] [place] [address] 26064- 4928 Aug, [facility] [id number] [place] [address] [phone] July, Major depressive disorder, recurrent, moderate F33.1 ; Anxiety disorder, unspecified F41.9 and 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 [facility] [id number] [place] [address] [phone] July, [facility] [id number] [place] [address] [phone]- [phone] July, Chronic constipation K59.09 [address] [place] [address] [address] 20 Jun, 2015 [facility] [id number] [place] [address] [phone]- [phone] 15 Jun, 2015 [facility] [id number] [place] [address] [phone]- [phone] 14 Jun, 2015 Osteoarthritis of left knee M17.9 [facility] [id number] [place] [address] 04217- 2597 13 Jun, 2015 [facility] [id number] [place] [address] 21049- 4718 13 Jun, 2015 Generalized anxiety disorder F41.1 ; Bipolar disorder, unspecified F31.9 and Major depressive disorder, recurrent, moderate F33.1 [facility] [id number] [place] [address] 65237- 2224 07 Jun, 2015 Migraine G43.909 [facility] [id number] [place] [address] 18872- 2999 07 Jun, 2015 Left knee pain M25.562 ; Chronic constipation K59.09 ; Dry mouth R68.2 ; Yeast vaginitis B37.3 and Memory loss R41.3 [facility] [id number] [place] [address] 22396- 5093 05 Jun, 2015 [facility] [id number] [place] [address] 14395- 9603 30 May, 2015 [facility] [id number] [place] [address] 80217- 8593 29 May, 2015 [facility] [id number] [place] [address] 43505- 7047 May, [facility] [id number] [place] [address] 65491- 8725 May, [facility] [id number] [place] [address] 84500- 5537 17 May, 2015 Acute bronchitis with COPD J44.0 ; Knee pain, left M25.562 and Encounter for tobacco use cessation counseling Z71.6 [facility] [id number] [place] [address] 17563- 5155 May, [facility] [id number] [place] [address] 16472- 1956 Apr, Diabetes E11.9 ; TMJ (sprain of temporomandibular joint) S03.4XXA ; Tobacco abuse Z72.0 ; Migraine G43.909 and Anxiety F41.9 [facility] [id number] [place] [address] 04868- 8760 Apr, Generalized anxiety disorder F41.1 and Bipolar disorder, unspecified F31.9 [facility] [id number] [place] [address] 26204- 6942 Apr, Major depressive disorder, recurrent, moderate F33.1 ; Anxiety disorder, unspecified F41.9 and 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 [facility] [id number] [place] [address] 10588- 5760 Apr, [facility] [id number] [place] [address] 47409- 6881 Mar, [facility] [id number] [place] [address] 13384- 3622 Feb, [facility] [id number] [place] [address] 19464- 3268 14 Feb, 2015 Major depressive disorder, recurrent, moderate F33.1 ; Anxiety disorder, unspecified F41.9 and 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 [facility] [id number] [place] [address] 06422- 0104 Feb, [facility] [id number] [place] [address] 28318- 1604 Feb, Generalized anxiety disorder F41.1 and Bipolar disorder, unspecified F31.9 [facility] [id number] [place] [address] 84880- 8781 Jan, [facility] [id number] [place] [address] 67120- 5054 Jan, [facility] [id number] [place] [address] 74602- 4675 Jan, Bipolar disorder, unspecified F31.9 and Generalized anxiety disorder F41.1 [facility] [id number] [place] [address] 10834- 0712 Dec, [facility] [id number] [place] [address] 78046- 5601 Dec, Bipolar disorder, unspecified F31.9 and Generalized anxiety disorder F41.1 [facility] [id number] [place] [address] 23424- 3404 Dec, Generalized anxiety disorder F41.1 and Major depressive disorder, recurrent, moderate F33.1 [facility] [id number] [place] [address] 10533- 3124 Oct, Headache 784.0 ; Cough 786.2 ; Vomiting and diarrhea 787.03 and Dysuria 788.1 [facility] [id number] [place] [address] 80167- 1389 Aug, [facility] [id number] [place] [address] 05525- 2959 Aug, Headache 784.0 and Shortness of breath 786.05 [facility] [id number] [place] [address] 38493- 5926 Aug, [facility] [address] 46554- 6290 Aug, Migraine 346.90 [facility] [id number] [place] [address] 12111- 2453 Jun, [facility] [id number] [place] [address] 24372- 5344 Jun, [facility] [place] [facility] [address] [id number] [place] [address]- 6547 May, [facility] [place] [facility] [address] [id number] [place] [address]- 3613 May, [facility] [place] [facility] [address] [id number] [place] [address]- 5341 May, [facility] [place] [facility] [address] [id number] [place] [address]- 2082 May, [facility] [place] [facility] [address] [id number] [place] [address]- 8241 May, [facility] [place] [facility] [address] [id number] [place] [address]- 4417 May, [facility] [place] [facility] [address] [id number] [place] [address]- 8576 Apr, [facility] [place] [facility] [address] [id number] [place] [address]- 5617 Apr, [facility] [place] [facility] [address] [id number] [place] [address]- 8957 Apr, [facility] [place] [facility] [address] [id number] [place] [address]- 9125 Apr, [facility] [place] [facility] [address] [id number] [place] [address]- 8959 Apr, [facility] [place] [facility] [address] [id number] [place] [address]- 4025 Mar, [facility] [place] [facility] [address] [id number] [place] [address]- 9523 Mar, [facility] [place] [facility] [address] [id number] [place] [address]- 3679 Mar, [facility] [place] [facility] [address] [id number] [place] [address]- 0786 Mar, [facility] [place] [facility] [address] [id number] [place] [address]- 4766 19 Feb, 2014 [facility] [place] [facility] [address] [id number] [place] [address]- 6816 19 Feb, 2014 [facility] [place] [facility] [address] [id number] [place] 7696 18 Feb, 2014 [facility] [place] [facility] [address] [id number] [place] [address]- 3463 18 Feb, 2014 [facility] [place] [facility] [address] [id number] [place] [address]- 1659 16 Feb, 2014 [facility] [place] [facility] [address] [id number] [place] 7470 Feb, [facility] [place] [facility] [address] [id number] [place] [address]- 4781 Feb, [facility] [place] [facility] [address] [id number] [place] [address]- 8914 Feb, [facility] [place] [facility] [address] [id number] [place] [address]- 2695 Feb, [facility] [place] [facility] [address] [id number] [place] [address]- 7742 Feb, [facility] [place] [facility] [address] [id number] [place] [address]- 9766 Feb, [facility] [place] [facility] [address] [id number] [place] [address]- 8112 Feb, [facility] [place] [facility] [address] [id number] [place] [address]- 9165 Jan, [facility] [place] [facility] [address] [id number] [place] [address]- 6182 Jan, [facility] [place] [facility] [address] [id number] [place] [address]- 5077 Dec, [facility] [place] [facility] [address] [id number] [place] [address]- 5191 Dec, [facility] [place] [facility] [address] [id number] [place] [address]- 2808 Dec, [facility] [place] [facility] [address] [id number] [place] [address]- 4530 Dec, [facility] [place] [facility] [address] [id number] [place] [address]- 9122 Dec, [facility] [place] [facility] [address] [id number] [place] [address]- 9653 Dec, [facility] [place] [facility] [address] [id number] [place] [address]- 3749 Sep, [facility] [place] [facility] [address] [id number] [place] [address]- 6909 Sep, [facility] [place] [facility] [address] [id number] [place] [address]- 2430 Sep, [facility] [place] [facility] [address] [id number] [place] [address]- 0940 Sep, [facility] [place] [facility] [address] [id number] [place] [address]- 3531 Sep, [facility] [place] [facility] [address] [id number] [place] [address]- 5749 Sep, [facility] [place] [facility] [address] [id number] [place] [address]- 0489 Sep, [facility] [place] [facility] [address] [id number] [place] [address]- 5835 Sep, [facility] [place] [facility] [address] [id number] [place] [address]- 5014 Sep, [facility] [place] [facility] [address] [id number] [place] [address]- 1367 Sep, [facility] [place] [facility] [address] [id number] [place] [address]- 4351 Aug, [facility] [place] [facility] [address] [id number] [place] [address]- 9152 Aug, [facility] [place] [facility] [address] [id number] [place] [address]- 2799 Aug, [facility] [place] [facility] [address] [id number] [place] [address]- 1928 Aug, [facility] [place] [facility] [address] [id number] [place] [address]- 3410 Aug, [facility] [place] [facility] [address] [id number] [place] [address]- 8554 Aug, [facility] [place] [facility] [address] [id number] [place] [address]- 3095 Aug, [facility] [place] [facility] [address] [id number] [place] [address]- 4361 Aug, [facility] [place] [facility] [address] [id number] [place] [address]- 7141 Aug, [facility] [place] [facility] [address] [id number] [place] [address]- 6728 Aug, [facility] [place] [facility] [address] [id number] [place] [address]- 2754 Aug, [facility] [place] [facility] [address] [id number] [place] [address]- 6876 Aug, [facility] [place] [facility] [address] [id number] [place] [address]- 5489 Aug, [facility] [place] [facility] [address] [id number] [place] [address]- 2281 July, [facility] [place] [facility] [address] [id number] [place] [address]- 1578 July, [facility] [place] [facility] [address] [id number] [place] [address]- 0270 July, [facility] [place] [facility] [address] [id number] [place] [address]- 5090 July, [facility] [place] [facility] [address] [id number] [place] [address]- 5346 July, [facility] [place] [facility] [address] [id number] [place] [address]- 6361 July, [facility] [place] [facility] [address] [id number] [place] [address]- 4986 July, [facility] [place] [facility] [address] [id number] [place] [address]- 8442 Jun, [facility] [place] [facility] [address] [id number] [place] [address]- 6314 Jun, [facility] [place] [facility] [address] [id number] [place] [address]- 1341 Jun, [facility] [place] [facility] [address] [id number] [place] [address]- 4847 Jun, [facility] [place] [facility] [address] [id number] [place] [address]- 8996 Jun, [facility] [place] [facility] [address] [id number] [place] [address]- 9666 Jun, [facility] [place] [facility] [address] [id number] [place] [address]- 2193 Jun, [facility] [place] [facility] [address] [id number] [place] [address]- 3225 17 May, 2013 [facility] [place] [facility] [address] [id number] [place] [address]- 1206 17 May, 2013 [facility] [place] [facility] [address] [id number] [place] [address]- 4495 14 May, 2013 [facility] [place] [facility] [address] [id number] [place] [address]- 0109 14 May, 2013 [facility] [place] [facility] [address] [id number] [place] [address]- 5265 13 May, 2013 [facility] [place] [facility] [address] [id number] [place] [address]- 8923 13 May, 2013 [facility] [place] [facility] [address] [id number] [place] [address]- 4716 10 May, 2013 [facility] [place] [facility] [address] [id number] [place] [address]- 5845 10 May, 2013 [facility] [place] [facility] [address] [facility] [id number] [place] [address]- 5546 May, [facility] [place] [facility] [address] [id number] [place] [address]- 7900 Apr, [facility] [place] [facility] [address] [id number] [place] [address]- 4523 Apr, [facility] [place] [facility] [address] [facility] [id number] [place] [address]- 7300 18 Apr, 2013 [facility] [place] [facility] [address] [facility] [id number] [place] [address]- 3060 15 Apr, 2013 [facility] [place] [facility] [address] [facility] [id number] [place] [address]- 6443 15 Apr, 2013 [facility] [place] [facility] [address] [facility] [id number] [place] [address]- 6310 Apr, [facility] [place] [facility] [address] [facility] [id number] [place] [address]- 0795 Apr, [facility] [place] [facility] [address] [facility] [id number] [place] [address]- 2072 Apr, [facility] [place] [facility] [address] [facility] [id number] [place] [address]- 3462 Apr, [facility] [place] [facility] [address] [id number] [place] [address]- 9844 Apr, [facility] [place] [facility] [address] [facility] [id number] [place] [address]- 7253 Mar, [facility] [place] [facility] [address] [facility] [id number] [place] [address]- 9686 Mar, [facility] [place] [facility] [address] [id number] [place] [address]- 5402 Mar, [facility] [place] [facility] [address] [id number] [place] [address]- 6274 Mar, [facility] [place] [facility] [address] [id number] [place] [address]- 8760 Mar, [facility] [place] [facility] [address] [id number] [place] [address]- 1058 Mar, [facility] [place] [facility] [address] [id number] [place] [address]- 0821 Mar, [facility] [place] [facility] [address] [id number] [place] [address]- 4938 Mar, [facility] [place] [facility] [address] [id number] [place] [address]- 9198 Feb, [facility] [place] [facility] [address] [id number] [place] [address]- 2414 Feb, [facility] [place] [facility] [address] [id number] [place] [address]- 4620 Jan, [facility] [place] [facility] [address] [id number] [place] [address]- 3611 18 Jan, 2013 [facility] [place] [facility] [address] [id number] [place] [address]- 8628 15 Jan, 2013 [facility] [place] [facility] [address] [id number] [place] [address]- 2421 15 Jan, 2013 [facility] [place] [facility] [address] [id number] [place] [address]- 7497 Jan, [facility] [place] [facility] [address] [id number] [place] [address]- 9895 Jan, [facility] [place] [facility] [address] [id number] [place] [address]- 4714 05 Jan, 2013 [facility] [place] [facility] [address] [id number] [place] [address]- 3186 Jan, [facility] [place] [facility] [address] [id number] [place] [address]- 9322 Dec, [facility] [place] [facility] [address] [id number] [place] [address]- 7175 Dec, [facility] [place] [facility] [address] [id number] [place] [address]- 2888 Dec, [facility] [place] [facility] [address] [id number] [place] [address]- 1078 20 Nov, 2012 [facility] [place] [facility] [address] [id number] [place] [address]- 1258 13 Nov, 2012 [facility] [place] [facility] [address] [id number] [place] [address]- 6464 12 Nov, 2012 [facility] [place] [facility] [address] [id number] [place] [address]- 4512 Nov, [facility] [place] [facility] [address] [id number] [place] [address]- 0368 Nov, [facility] [place] [facility] [address] [id number] [place] [address]- 4008 Nov, [facility] [place] [facility] [address] [id number] [place] [address]- 7020 Oct, [facility] [place] [facility] [address] [id number] [place] [address]- 4033 Oct, [facility] [place] [facility] [address] [id number] [place] [address]- 5723 Sep, [facility] [place] [facility] [address] [id number] [place] [address]- 6171 Sep, [facility] [place] [facility] [address] [id number] [place] [address]- 5619 Sep, [facility] [place] [facility] [address] [id number] [place] [address]- 3149 Sep, [facility] [place] [facility] [address] [id number] [place] [address]- 5163 Sep, [facility] [address] [id number] [place] [address]- 9213 Sep, [facility] [address] [id number] [place] [address]- 1746 Sep, [facility] [address] [id number] [place] [address]- 9078 Aug, [facility] [address] [id number] [place] [address]- 4608 14 Aug, 2012 [facility] [address] [id number] [place] [address]- 5310 Aug, [facility] [address] [id number] [place] [address]- 2129 Aug, [facility] [address] [id number] [place] [address]- 3703 Aug, [facility] [address] [id number] [place] [address]- 3041 Aug, [facility] [address] [id number] [place] [address]- 2676 July, [facility] [address] [id number] [place] [address]- 2830 July, [facility] [address] [id number] [place] [address]- 7560 July, [facility] [address] [id number] [place] [address]- 6442 July, [facility] [address] [id number] [place] [address]- 3100 July, [facility] [address] [id number] [place] [address]- 0336 July, [facility] [address] [id number] [place] [address]- 3746 Jun, [facility] [address] [id number] [place] [address]- 6634 Jun, [facility] [place] [facility] [address] [id number] [place] [address]- 5683 Jun, [facility] [place] [facility] [address] [id number] [place] [address]- 6910 Jun, [facility] [place] [facility] [address] [id number] [place] [address]- 3316 Jun, [facility] [place] [facility] [address] [id number] [place] [address]- 7661 Jun, [facility] [place] [facility] [address] [id number] [place] [address]- 9856 Jun, [facility] [place] [facility] [address] [facility] [id number] [place] [address]- 9280 May, [facility] [place] [facility] [address] [id number] [place] [address]- 7231 May, [facility] [place] [facility] [address] [id number] [place] [address]- 0967 Apr, [facility] [place] [facility] [address] [facility] [id number] [place] [address] Apr, [facility] [place] [facility] [address] [id number] [place] [address] Apr, [facility] [place] [facility] [address] [id number] [place] [address] Apr, [facility] [place] [facility] [address] [id number] [place] [address] Apr, [facility] [place] [facility] [address] [id number] [place] [address] 08 Apr, 2012 [facility] [place] [facility] [address] [facility] [id number] [place] [address] 07 Apr, 2012 [facility] [place] [facility] [address] [id number] [place] [address] 07 Apr, 2012 [facility] [address] [id number] [place] [address] 06 Apr, [address] [facility] [address] [id number] [place] [address] 06 Apr, 2012 [facility] [address] [id number] [place] [address] Apr, [facility] [address] [id number] [place] [address] Mar, [facility] [address] [id number] [place] [address] Mar, [facility] [address] [id number] [place] [address] Mar, [facility] [address] [id number] [place] [address] Mar, [facility] [address] [id number] [place] [address] Mar, [facility] [address] [id number] [place] [address] Mar, [facility] [address] [id number] [place] [address] Mar, [facility] [address] [id number] [place] [address]- [address] Mar, [facility] [address] [id number] [place] [address] Mar, [facility] [place] [facility] [address] [id number] [place] [address] Mar, [facility] [address] [id number] [place] [address] Mar, [facility] [address] [id number] [place] [address] Mar, [facility] [address] [id number] [place] [address] Mar, [facility] [place] [facility] [address] [id number] [place] [address] Feb, [facility] [place] [facility] [address] [id number] [place] [address] Feb, [facility] [place] [facility] [address] [id number] [place] [address] Feb, [facility] [place] [facility] [address] [id number] [place] [address] Feb, [facility] [place] [facility] [address] [id number] [place] [address] Feb, [facility] [place] [facility] [address] [id number] [place] [address] Feb, [facility] [place] [facility] [address] [id number] [place] [address] Feb, [facility] [place] [facility] [address] [id number] [place] [address] Feb, [facility] [place] [facility] [address] [id number] [place] [address] Feb, [facility] [place] [facility] [address] [id number] [place] [address] Feb, [facility] [place] [facility] [address] [id number] [place] [address] Feb, [facility] [place] [facility] [address] [id number] [place] [address] Feb, [facility] [place] [facility] [address] [id number] [place] [address] 05 Feb, 2012 [facility] [place] [facility] [address] [id number] [place] [address] 6957 Feb, [facility] [place] [facility] [address] [id number] [place] [address] 3524 Feb, [facility] [place] [facility] [address] [id number] [place] [address] Jan, [facility] [place] [facility] [address] [id number] [place] [address] Jan, [facility] [place] [facility] [address] [facility] [id number] [place] [address] Jan, [facility] [place] [facility] [address] [id number] [place] [address] Jan, [facility] [place] [facility] [address] [id number] [place] [address] Dec, [facility] [place] [facility] [address] [id number] [place] [address]- 45[address] Dec, [facility] [place] [facility] [address] [facility] [id number] [place] [address]- 7821 Dec, [facility] [place] [facility] [address] [id number] [place] [address]- [address] Dec, [facility] [place] [facility] [address] [id number] [place] [address]- [address]254 Dec, [facility] [place] [facility] [address] [facility] [id number] [place] [address] 2806 Dec, [facility] [place] [facility] [address] [facility] [id number] [place] [address]- [address]28 Dec, [facility] [place] [facility] [address] [facility] [id number] [place] [address] 47[address] Dec, [facility] [place] [facility] [address] [id number] [place] [address] 3815 Dec, [facility] [place] [facility] [address] [facility] [id number] [place] [address]66 Dec, [facility] [place] [facility] [address] [facility] [id number] [place] [address] Dec, [facility] [place] [facility] [address] [id number] [place] [address] 2545 25 Sep, 2011 [facility] [place] [facility] [address] [id number] [place] [address] 2546 24 Sep, 2011 [facility] [place] [facility] [address] [id number] [place] [address] 2546 20 Sep, 2011 [facility] [place] [facility] [address] [id number] [place] [address] 2546 19 Sep, 2011 [facility] [place] [facility] [address] [id number] [place] [address] 2548 17 Sep, 2011 [facility] [place] [facility] [address] [id number] [place] [address] 16 Sep, 2011 [facility] [place] [facility] [address] [id number] [place] [address] 14 Sep, 2011 [facility] [place] [facility] [address] [id number] [place] [address] 13 Sep, 2011 [facility] [place] [facility] [address] [id number] [place] [address] 12 Sep, 2011 [facility] [place] [facility] [address] [id number] [place] [address] 07 Sep, 2011 [facility] [place] [facility] [address] [id number] [place] [address] 2548 06 Sep, 2011 [facility] [place] [facility] [address] [id number] [place] [address] 2544 06 Sep, 2011 [facility] [place] [facility] [address] [id number] [place] [address] 2543 05 Sep, 2011 [facility] [place] [facility] [address] [id number] [place] [address] 2549 29 Oct, 2011 [facility] [place] [facility] [address] [id number] [place] [address] 254 29 Oct, 2011 [facility] [place] [facility] [address] [id number] [place] [address] Oct, [facility] [place] [facility] [address] [id number] [place] [address] Oct, [facility] [place] [facility] [address] [id number] [place] [address] Oct, [facility] [place] [facility] [address] [id number] [place] [address] Oct, [facility] [place] [facility] [address] [id number] [place] [address] Oct, [facility] [place] [facility] [address] [id number] [place] [address] Oct, [facility] [place] [facility] [address] [id number] [place] [address] 2467 Oct, [facility] [place] [facility] [address] [id number] [place] [address] 8692 Oct, [facility] [place] [facility] [address] [id number] [place] [address] 4[address] Oct, [facility] [place] [facility] [address] [id number] [place] [address] Sep, [facility] [place] [facility] [address] [id number] [place] [address] Sep, [facility] [place] [facility] [address] [id number] [place] [address] 47[address] Sep, [facility] [place] [facility] [address] [id number] [place] [address] Sep, [facility] [place] [facility] [address] [id number] [place] [address] Sep, [facility] [place] [facility] [address] [id number] [place] [address] Sep, [facility] [place] [facility] [address] [id number] [place] [address] 8[address] Aug, [facility] [place] [facility] [address] [id number] [place] [address] 30 Jul, 2011 [facility] [address] [id number] [place] [address] July, [facility] [address] [id number] [place] [address] Jun, [facility] [address] [id number] [place] [address] Jun, [facility] [address] [id number] [place] [address] 9[address] Jun, [facility] [address] [id number] [place] [address] Jun, [facility] [address] [id number] [place] [address] Jun, [facility] [address] [id number] [place] [address] 2983 Jun, [facility] [address] [id number] [place] [address] 6[address] Jun, [facility] [address] [id number] [place] [address] 6[address] Jun, [facility] [address] [id number] [place] [address] Jun, [facility] [address] [id number] [place] [address] 8924 Jun, [facility] [address] [id number] [place] [address] 3735 Jun, [facility] [place] [facility] [address] [id number] [place] [address] 87[address] 19 May, 2011 [facility] [place] [facility] [address] [id number] [place] [address] 4088 16 May, 2011 [facility] [address] [id number] [place] [address] 75[address] 14 May, 2011 [facility] [place] [facility] [address] [id number] [place] [address]- 3057 06 May, 2011 [facility] [place] [facility] [address] [id number] [place] [address] 9616 Apr, [facility] [place] [facility] [address] [id number] [place] [address] 9276 Apr, [facility] [place] [facility] [address] [id number] [place] [address] 2546 Apr, [facility] [place] [facility] [address] [id number] [place] [address] 3510 Apr, [facility] [place] [facility] [address] [id number] [place] [address] 1556 Apr, [facility] [place] [facility] [address] [id number] [place] [address] 0816 Apr, [facility] [place] [facility] [address] [id number] [place] [address] 7614 Apr, [facility] [place] [facility] [address] [id number] [place] [address] 8879 Apr, [facility] [place] [facility] [address] [id number] [place] [address] 7744 Mar, [facility] [place] [facility] [address] [id number] [place] [address]- 5544 Mar, [facility] [place] [facility] [address] [id number] [place] [address]- 6532 Mar, [facility] [place] [facility] [address] [id number] [place] [address]- 6406 18 Mar, 2011 [facility] [place] [facility] [address] [id number] [place] [address]- 6780 17 Mar, 2011 [facility] [place] [facility] [address] [id number] [place] [address]- 0206 13 Mar, 2011 [facility] [place] [facility] [address] [id number] [place] [address] 9002 Mar, [facility] [address] [id number] [place] [address] 7827 Mar, [facility] [address] [id number] [place] [address] 7299 Mar, [facility] [address] [id number] [place] [address]- 8376 Mar, [facility] [address] [id number] [place] [address]- 9731 Mar, [facility] [address] [id number] [place] [address]- 8384 Mar, [facility] [address] [id number] [place] [address]- 5442 Mar, [facility] [address] [id number] [place] [address]- 9194 Mar, [facility] [address] [id number] [place] [address]- 2150 Mar, [facility] [address] [id number] [place] [address]- 1306 Mar, [facility] [address] [id number] [place] [address]- 2675 Feb, [facility] [address] [id number] [place] [address]- 5758 Feb, [facility] [address] [id number] [place] [address]- 5479 Feb, [facility] [address] [id number] [place] [address]- 8516 Jan, [facility] [address] [id number] [place] [address]- 8177 Jan, [facility] [address] [id number] [place] [address]- 9324 Jan, [facility] [address] [id number] [address] Dec, [facility] [id number] [address] 2546 Dec, [facility] [id number] [address] Nov, [facility] [id number] [place] [address]- 2546 Oct, [facility] [address] [address] 00[address] Oct, [facility] [id number] [place] [address]- 9756 Oct, [facility] [id number] [place] [address] 2545 Sep, [facility] [id number] [place] [address]- 9[address] Apr, [facility] [address] [address] Feb, [facility] [id number] [address] Jan, IMMUNIZATIONS No Known Immunizations SOCIAL HISTORY Never Assessed REASON FOR VISIT Shortness of breath-KOURTNEY johnson, patient complain of not feeling good been vomiting, chest pain, and having diarrhea, for about a week now PLAN OF CARE Activity Details Follow Up 1 Week Reason:Alondra VITAL SIGNS Height 70 in 2017-11-18 Weight 194.7 lbs 2017-11-18 Temperature 97.8 degrees Fahrenheit 2017-11-18 Heart Rate 85 bpm 2017-11-18 Respiratory Rate 20 2017-11-18 Oximetry on room air:99 % 2017-11-18 BMI 27.93 kg/m2 2017-11-18 Blood pressure systolic 100 mmHg 2017-11-18 Blood pressure diastolic 80 mmHg 2017-11-18 MEDICATIONS Medication Instructions Dosage Frequency Start Date End Date Duration Status Ventolin HFA 108 (90 Base) MCG/ACT Inhalation every 4 hours 2 puffs as needed for short of breath or wheeze 4h 90 days Active PredniSONE 20 mg Orally Once a day 2 tablets 24h 12 Nov, 2017 5 days Active Metoprolol Tartrate 25 MG Orally 2 times a day 1/2 tablet 12h Active Ipratropium-Albuterol 0.5-2.5 (3) MG/3ML Inhalation Four times a day 3 ml as needed for Shortness of breath 6h 28 days Active Risperidone 0.5 MG Orally twice a day 1 tablet 12h Sep, Not- Taking Trulicity 0.75 MG/0.5ML Subcutaneous once weekly Inject 0.5 ml Jun, 90 days Not-Taking Advair Diskus 250-50 MCG/DOSE Inhalation Twice a day 1 puff 12h Dec, 90 days Active Entresto 24-26 MG Orally Twice a day 1 tablet 12h Active Lasix 20 MG Orally Once a day 1 tablet 24h Active Oxygen 2Lt by inhalation route 24 hours Active Spiriva HandiHaler 18 MCG Inhalation Once a day 1 capsule 24h 90 days Active Aspir-81 81 MG Orally Once a day 1 tablet 24h Active Glimepiride 1 MG Orally Once a day on the days you are taking the prednsone 1 tablet with breakfast or the first main meal of the day Mar, 30 day(s) Not-Taking RESULTS No Results PROCEDURES No Known [...] 2/2 Benzos OD, pneumonia MRSA, MAYRA, Hypokalemia-- [facility] 12/20/2015 Hospitalization History COPD exacerbation, Asthma-[facility] 09/21/16 Hospitalization History COPD-[facility] 12/30/[address] [facility] and [place] for inpatient-last around 2006 or so. Hospitalization History for COPD x2 Mar 2017 Hospitalization History Upper GI bleed at apr 2017 Hospitalization History [facility]- COPD Exacerbation, diarrhea 05/23/2017 Hospitalization History COPD exacerbation-[facility] 06/13/17 Hospitalization History CHF 09/09/2017 Hospitalization History COPD-UTI--[facility] 11/2017
[2018-01-01] MEDS ORDERED: RT-ALBUTEROL/IPRATROPIUM 3 ML (DUONEB) VIAL INH ONE ×2 (12:30→13:25)
[2018-01-01 12:39] LABS: BILIRUBIN,URINE NEGATIVE (NEGATIVE); CLARITY,URINE CLEAR; COLOR,URINE YELLOW; GLUCOSE, URINE (UA) NEGATIVE (NEGATIVE); KETONES,URINE NEGATIVE (NEGATIVE); LEUKOCYTE ESTERASE ,URINE NEGATIVE (NEGATIVE); NITRITE,URINE NEGATIVE (NEGATIVE); PH,URINE 6.5 (5-9); PROTEIN,URINE NEGATIVE (NEGATIVE); UROBILINOGEN,URINE NORMAL (NORMAL)
[2018-01-01 12:45] LABS: BACTERIA,URINE NEGATIVE /HPF
[2018-01-01 12:56] LABS: AMPHETAMINE SCREEN, URINE NEGATIVE (NEGATIVE); BARBITURATE SCREEN URINE NEGATIVE (NEGATIVE); BENZODIAZEPINES SCREEN URINE NEGATIVE (NEGATIVE); CANNABINOID SCREEN, URINE NEGATIVE (NEGATIVE); COCAINE SCREEN URINE NEGATIVE (NEGATIVE); METHADONE STAT NEGATIVE (NEGATIVE); METHAMPHETAMINE SCREEN URINE S NEGATIVE (NEGATIVE); OPIATE SCREEN URINE NEGATIVE (NEGATIVE); OXYCODONE STAT NEGATIVE (NEGATIVE); PROPOXYPHENE STAT NEGATIVE (NEGATIVE); TRICYCLIC ANTIDEPRESSANTS SCRE NEGATIVE (NEGATIVE)
[2018-01-01 12:57] LABS: BASOPHILS % (AUTO) 0 % (0-10); EOSINOPHILS # (AUTO) 0.2 10^3/uL (0.0-0.3); EOSINOPHILS % (AUTO) 2 % (0-10); HEMATOCRIT 39 % (35-52); HEMOGLOBIN 13.3 G/DL (11.5-16.0); LYMPHOCYTES # (AUTO) 2.8 X 10^3 (1.0-4.0); LYMPHOCYTES % (AUTO) 31 % (12-44); MEAN CORPUSCULAR HEMOGLOBIN 29 PG (25-34); MEAN CORPUSCULAR HGB CONC 34 G/DL (32-36); MEAN CORPUSCULAR VOLUME 85 FL (80-99); MEAN PLATELET VOLUME 10.1 FL (7.4-10.4); MONOCYTES # (AUTO) 0.7 X 10^3 (0.0-1.0); MONOCYTES % (AUTO) 8 % (0-12); NEUTROPHILS # (AUTO) 5.4 X 10^3 (1.8-7.8); NEUTROPHILS % (AUTO) 59 % (42-75); PLATELET COUNT 312 10^3/uL (130-400); RED BLOOD COUNT 4.66 10^6/uL (4.35-5.85); RED CELL DISTRIBUTION WIDTH 14.9 % (10.0-14.5); WHITE BLOOD COUNT 9.2 10^3/uL (4.3-11.0)
[2018-01-01 13:16] LABS: ALANINE AMINOTRANSFERASE 10 U/L (0-55); ALBUMIN 3.9 GM/DL (3.2-4.5); ALKALINE PHOSPHATASE 70 U/L (40-136); BILIRUBIN,TOTAL 0.3 MG/DL (0.1-1.0); BUN/CREATININE RATIO 13; CALCIUM 9.6 MG/DL (8.5-10.1); CARBON DIOXIDE 22 MMOL/L (21-32); CHLORIDE 107 MMOL/L (98-107); CREATININE SERUM 0.79 MG/DL (0.60-1.30); GFR ESTIMATED > 60; GLUCOSE 102 MG/DL (70-105); POTASSIUM 3.8 MMOL/L (3.6-5.0); SODIUM 139 MMOL/L (135-145); TOTAL PROTEIN 6.5 GM/DL (6.4-8.2)
[2018-01-01] MEDS ORDERED: RT-ALBUTEROL SULF 2.5 MG/3 ML PRE-MIX VIAL ONE (13:16)
[2018-01-01] MEDS ORDERED: RT-ALBUTEROL SULF 2.5 MG/3 ML PRE-MIX VIAL INH ONE (13:25)
--- NOTE | 2018-01-01 13:32 | Diagnostic Imaging Report ---
INDICATION: Dyspnea and COPD. TECHNIQUE: PA and lateral views of the chest are obtained with comparison made to study of 12/26/2017. FINDINGS: Heart size and pulmonary vascularity are within normal limits, and the lungs are clear, bilaterally. IMPRESSION: Unremarkable chest. Dictated by: Dictated on workstation # [id number]
[2018-01-01] MEDS ORDERED: LORazepam INJ 2 MG/ML (ATIVAN) VIAL IVP ONE ×2 (13:45→14:45)
--- NOTE | 2018-01-01 13:49 | ED Respiratory ---
General Chief Complaint: Respiratory Problems Stated Complaint: SOB Nursing Triage Note: PT PRESENTS TO ER WITH COMPLAINT OF SOB. STATES SHE WAS HERE THURSDAY AND STARTED FEELING BAD AGAIN THURSDAY. Source: patient Exam Limitations: no limitations History of Present Illness Date Seen by Provider: Jan 01, 2018 Time Seen by Provider: 12:25 Initial Comments The patient is a 52 year old female who presents to the emergency room with complains of shortness of breath. She has a lengthy history of COPD and anxiety. She was seen in the emergency room on 12/27/17 and is currently on a prednisone taper pack that was started at this visit. She reports that yesterday she started having increasing shortness of breath that was not alleviated by her home breathing treatments. She wears continuous O2 at 3L. Timing/Duration: yesterday Prior Episodes/Possible Cause: frequent episodes, chronic episodes Modifying Factors: Worse With Activity; Improves With Albuterol Nebulizer, Improves With Oxygen Associated Symptoms: shortness of breath, wheezing Allergies and Home Medications Allergies Coded Allergies: buspirone (Verified Allergy, Mild, 05/02/17) Made"legs Shaky" amitriptyline (Verified Allergy, Unknown, 05/02/17) " MAKES ME DO WEIRD THINGS LIKE WALK IN MY SLEEP AND HAVE HALLUCINATIONS." Home Medications Albuterol Sulfate 1 Puff Puff, 2 PUFF IH Q4H PRN for SHORTNESS OF BREATH, ( Reported) Aspirin 81 Mg Tablet.dr, 81 MG PO DAILY, (Reported) Fluticasone/Salmeterol 1 Each Blst.w.dev, 1 PUFF IH BID, (Reported) Furosemide 20 Mg Tablet, 20 MG PO DAILY, (Reported) Glimepiride 1 Mg Tablet, 1 MG PO DAILY PRN for WHEN TAKING PREDNISONE, (Reported ) Ipratropium/Albuterol Sulfate 3 Ml Ampul.neb, 3 ML IH QID PRN for SHORTNESS OF BREATH, (Reported) Levofloxacin 500 Mg Tablet, 500 MG PO DAILY Prescribed by: CONNOR JOHNSTON on 11/22/17 1118 Metoprolol Tartrate 25 Mg Tablet, 12.5 MG PO BID, (Reported) TAKES 1/2 (25MG) TABLET Ondansetron 4 Mg Tab.rapdis, 4 MG PO Q6H PRN for NAUSEA/VOMITING Prescribed by: ABIGAIL PASCUAL on 12/06/17 1434 Prednisone 10 Mg Tab, 10 MG PO DAILY 5 tabs (50mg) Day 1 4 tabs (40mg) Day 2 4 tabs (40mg) Day 3 3 tabs (30mg) Day 4 3 tabs (30mg) Day 5 2 tabs (20mg) Day 6 2 tabs (20mg) Day 7 1 tab (10Mg) Day 8 Prescribed by: CONNOR JOHNSTON on 11/22/17 1118 Prednisone 20 Mg Tab, 40 MG PO DAILY Prescribed by: ABIGAIL PASCUAL on 12/06/17 1434 Prednisone 5 Mg Tablet, 5 MG PO UD 12 PILLS DAY 1, THEN DECREASE BY 1 PILL A DAY UNTIL GONE Prescribed by: TIMOTHY HUGHES on 12/26/171947 Sacubitril/Valsartan 1 Each Tablet, 1 TAB PO BID, (Reported) Tiotropium Ethel 1 Inh Aerp, 1 CAP IH DAILY, (Reported) Patient Home Medication List Home Medication List Reviewed: Yes Review of Systems Review of Systems Constitutional: see HPI; No chills, No fever Respiratory: see HPI, dyspnea on exertion, short of breath, wheezing All Other Systems Reviewed Negative Unless Noted: Yes Past Qfntdaz-Zenobo-Ridjzv Hx Past Med/Social Hx: Reviewed Nursing Past Med/Soc Hx Patient Social History Alcohol Use: Denies Use Recreational Drug Use: No (4 YRS AGO) Drug of Choice: +IV METH past hx Type Used: Cigarettes 2nd Hand Smoke Exposure: Yes Recent Foreign Travel: No Contact w/Someone Who Travel: No Recent Infectious Disease Expo: No Recent Hopitalizations: No Immunizations Up To Date Tetanus Booster (TDap): Unknown Date of Pneumonia Vaccine: Dec 08, 2011 Date of Influenza Vaccine: Dec 31, 2016 Seasonal Allergies Seasonal Allergies: No Past Medical History Surgeries: No Respiratory: Yes (O2 AT 2-3L/NC) Sleep Apnea, COPD Currently Using CPAP: No Currently Using BIPAP: Yes Cardiac: Yes (HAD HEART CATH. 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 Sexually Transmitted Disease: No HIV/AIDS: No Genitourinary: No Gastrointestinal: Yes Ulcer Musculoskeletal: Yes (chronic shoulder and neck pain) Endocrine: Yes (DM- only while on steriods per pt) Diabetes, Non-Insulin dep HEENT: No Cancer: No Psychosocial: Yes Sleep Difficulties, Anxiety, Suicide Attempts, Bipolar, Depression Integumentary: No Blood Disorders: No Adverse Reaction/Blood Tranf: No Family Medical History Reviewed Nursing Family Hx Cancer 03 MOTHER, Onset:66 (LUNG ) 09 BROTHER (LUNG ) Congestive heart failure 03 FATHER Heart Disease, Cancer Physical Exam Vital Signs - First Documented 01/01/18 12:00 Temp 97.2 Pulse 84 Resp 16 B/P (MAP) 144/98 (113) Pulse Ox 96 O2 Delivery Nasal Cannula O2 Flow Rate 3.00 Capillary Refill : Less Than 3 Seconds Height: 5'9.00" Weight: 198lbs. 12.0oz. 90.969180oo; 29.1 BMI Method:Stated General Appearance: WD/WN, no apparent distress Neck: non-tender, full range of motion, supple, normal inspection, carotid bruit Respiratory: chest non-tender, no respiratory distress, no accessory muscle use , decreased breath sounds, wheezing (throughout all long shay.) Cardiovascular: normal peripheral pulses, regular rate, rhythm, no edema, no gallop, no JVD, no murmur Neurologic/Psychiatric: alert, normal mood/affect, oriented x 3 Skin: normal color, warm/dry Progress/Results/Core Measures Suspected Sepsis Recent Fever Within 48 Hours: No Infection Criteria Present: None New/Unexplained Altered Menta: No Sepsis Screen: No Definite Risk SIRS Temperature:97.2 Pulse: 84 Respiratory Rate: 16 Laboratory Tests 01/01/18 12:51: White Blood Count 9.2 Blood Pressure 144 /98 Mean: 113 Laboratory Tests 01/01/18 12:51: Creatinine 0.79, Platelet Count 312, Total Bilirubin 0.3 Results/Orders Lab Results Laboratory Tests Test 01/01/18 12:30 01/01/18 12:51 Range/Units Urine Color YELLOW Urine Clarity CLEAR Urine pH 6.5 5-9 Urine Specific [place] 1.005 L 1.016-1.022 Urine Protein NEGATIVE NEGATIVE Urine Glucose (UA) NEGATIVE NEGATIVE Urine Ketones NEGATIVE NEGATIVE Urine Nitrite NEGATIVE NEGATIVE Urine Bilirubin NEGATIVE NEGATIVE Urine Urobilinogen NORMAL NORMAL MG/DL Urine Leukocyte Esterase NEGATIVE NEGATIVE Urine RBC (Auto) NEGATIVE NEGATIVE Urine RBC NONE /HPF Urine WBC NONE /HPF Urine Squamous Epithelial Cells NONE /HPF Urine Crystals NONE /LPF Urine Bacteria NEGATIVE /HPF Urine Casts NONE /LPF Urine Mucus NEGATIVE /LPF Urine Culture Indicated NO Urine Opiates Screen NEGATIVE NEGATIVE Urine Oxycodone Screen NEGATIVE NEGATIVE Urine Methadone Screen NEGATIVE NEGATIVE Urine Propoxyphene Screen NEGATIVE NEGATIVE Urine Barbiturates Screen NEGATIVE NEGATIVE Ur Tricyclic Antidepressants Screen NEGATIVE NEGATIVE Urine Phencyclidine Screen NEGATIVE NEGATIVE Urine Amphetamines Screen NEGATIVE NEGATIVE Urine Methamphetamines Screen NEGATIVE NEGATIVE Urine Benzodiazepines Screen NEGATIVE NEGATIVE Urine Cocaine Screen NEGATIVE NEGATIVE Urine Cannabinoids Screen NEGATIVE NEGATIVE White Blood Count 9.2 4.3-11.0 10^3/uL Red Blood Count 4.66 4.35-5.85 10^6/uL Hemoglobin 13.3 11.5-16.0 G/DL Hematocrit 39 35-52 % Mean Corpuscular Volume 85 80-99 FL Mean Corpuscular Hemoglobin 29 25-34 PG Mean Corpuscular Hemoglobin Concent 34 32-36 G/DL Red Cell Distribution Width 14.9 H 10.0-14.5 % Platelet Count 312 130-400 10^3/uL Mean Platelet Volume 10.1 7.4-10.4 FL Neutrophils (%) (Auto) 59 42-75 % Lymphocytes (%) (Auto) 31 12-44 % Monocytes (%) (Auto) 8 0-12 % Eosinophils (%) (Auto) 2 0-10 % Basophils (%) (Auto) 0 0-10 % Neutrophils # (Auto) 5.4 1.8-7.8 X 10^3 Lymphocytes # (Auto) 2.8 1.0-4.0 X 10^3 Monocytes # (Auto) 0.7 0.0-1.0 X 10^3 Eosinophils # (Auto) 0.2 0.0-0.3 10^3/uL Basophils # (Auto) 0.0 0.0-0.1 10^3/uL Sodium Level 139 135-145 MMOL/L Potassium Level 3.8 3.6-5.0 MMOL/L Chloride Level 107 98-107 MMOL/L Carbon Dioxide Level 22 21-32 MMOL/L Anion Gap 10 5-14 MMOL/L Blood Urea Nitrogen 10 7-18 MG/DL Creatinine 0.79 0.60-1.30 MG/DL Estimat Glomerular Filtration Rate > 60 BUN/Creatinine Ratio 13 Glucose Level 102 70-105 MG/DL Calcium Level 9.6 8.5-10.1 MG/DL Corrected Calcium 9.7 8.5-10.1 MG/DL Total Bilirubin 0.3 0.1-1.0 MG/DL Aspartate Amino Transf (AST/SGOT) 10 5-34 U/L Alanine Aminotransferase (ALT/SGPT) 10 0-55 U/L Alkaline Phosphatase 70 40-136 U/L Total Protein 6.5 6.4-8.2 GM/DL Albumin 3.9 3.2-4.5 GM/DL My Orders Orders - BERNOT,AARON Albuterol/Ipra Inhalation Soln (Duoneb I (01/01/18 12:30) Svn Small Volume Nebulizer (01/01/18 12:27) Chest Pa/Lat (2 View) (01/01/18 12:27) Ua Culture If Indicated (01/01/18 12:27) Drug Screen Stat (Urine) (01/01/18 12:27) Cbc With Automated Diff (01/01/18 12:27) Comprehensive Metabolic Panel (01/01/18 12:27) Albuterol Pre-Mix Nebs (Rt) (Proventil (01/01/18 13:16) Albuterol Pre-Mix Nebs (Rt) (Proventil (01/01/18 13:25) Albuterol/Ipra Inhalation Soln (Duoneb I (01/01/18 13:25) Svn Small Volume Nebulizer (01/01/18 13:22) Svn Small Volume Nebulizer (01/01/18 13:22) Lorazepam Injection (Ativan Injection) (01/01/18 13:45) Lorazepam Injection (Ativan Injection) (01/01/18 14:45) Iv Push Bi Consultant Ed (01/01/18 ) Medications Given in ED Vital Signs/I&O 01/01/18 01/01/18 01/01/18 01/01/18 12:00 13:10 13:21 15:47 Temp 97.2 97.2 Pulse 84 84 Resp 16 16 B/P (MAP) 144/98 (113) 133/88 (103) Pulse Ox 96 96 O2 Delivery Nasal Cannula Nasal Cannula Nasal Cannula Nasal Cannula O2 Flow Rate 3.00 2.00 2.00 2.00 Capillary Refill : Less Than 3 Seconds Blood Pressure Mean: 113 Progress Note : Time: 15:30 Progress Note After an hour long breathing treatment her lung sounds have improved and she is no longer wheezing. She agrees with plan of care, return precautions were given. Diagnostic Imaging Diagonstic Imaging: Xray Plain Films/CT/US/NM/MRI: chest Comments NAME: SCOUT BURGESS [facility] REC#: [id number] PHYSICIAN: AARON MCKEON CC: AARON MCKEON; PURA CAUSEY MD Page 1 of 1 RADIOLOGY REPORT VIA [place], [place] CC: AARON MCKEON; PURA CAUSEY MD Page 1 of 1 RADIOLOGY REPORT NAME: SCOUT BURGESS [facility] REC#: [id number] PT STATUS: DEP ER : 1965 PHYSICIAN: AARON MCKEON ADMIT DATE: 01/01/18/ER Signed Date of Exam: 01/01/18 CHEST PA/LAT (2 VIEW) INDICATION: Dyspnea and COPD. TECHNIQUE: PA and lateral views of the chest are obtained with comparison made to study of 12/26/2017. FINDINGS: Heart size and pulmonary vascularity are within normal limits, and the lungs are clear, bilaterally. IMPRESSION: Unremarkable chest. Dictated by: Dictated on workstation # [id number] Dict: 01/01/18 1330 Trans: 01/01/181706 Interpreted by: PURA CAUSEY MD Electronically signed by: PURA CAUSEY MD 01/01/181706 Reviewed: Reviewed by Me Departure Impression Primary Impression: COPD (chronic obstructive pulmonary disease) Disposition: 01 HOME, SELF-CARE Condition: Stable/Unchanged Departure-Patient Inst. Decision time for Depature: 15:37 [place] [facility] [place] Primary Care Physician ALIZA CARTER (Family) Primary Care Physician Patient Instructions: Chronic Obstructive Pulmonary Disease (COPD), Including Emphysema Add. Discharge Instructions: Continue the prednisone as previously prescribed. Continue to use your home medications as previously prescribed. Follow-up with your primary care provider within 1 week for recheck. Return back to the emergency room for any worsening symptoms or concerns as needed. All discharge instructions reviewed with patient and/or family. Voiced understanding. AARON MCKEON Jan 01, 2018 13:49
[2018-01-01 15:47] VITALS: BP 133/88
== END 2018-01-01 15:47 | disposition home or self-care (01) ==
LOC: EDUNIT# 11:26 → ER 11:27
DX: J44.9 Chronic obstructive pulmonary disease, unspecified (principal); G47.30 Sleep apnea, unspecified; I10 Essential (primary) hypertension; G43.909 Migraine, unspecified, not intractable, without status migrainosus; E11.9 Type 2 diabetes mellitus without complications; F41.9 Anxiety disorder, unspecified; F31.9 Bipolar disorder, unspecified; F15.10 Other stimulant abuse, uncomplicated; Z87.19 Personal history of other diseases of the digestive system; Z88.8 Allergy status to other drugs, medicaments and biological substances; Z91.5 Personal history of self-harm; Z79.82 Long term (current) use of aspirin; Z79.51 Long term (current) use of inhaled steroids; Z82.49 Family history of ischemic heart disease and other diseases of the circulatory system; Z80.1 Family history of malignant neoplasm of trachea, bronchus and lung; Z79.84 Long term (current) use of oral hypoglycemic drugs; Z79.52 Long term (current) use of systemic steroids; Z77.22 Contact with and (suspected) exposure to environmental tobacco smoke (acute) (chronic)
CPT/HCPCS: 36415; 71046; 80053; 80306; 81000; 85025; 94640; 96374; 96376

== ENCOUNTER 2018-01-09 11:09 | Emergency (ER) | payer SELFPAY ==
[~2018-01-09] VITALS: Ht 175.3 cm; Wt 90.7 kg
[2018-01-09] MEDS ORDERED: RT-ALBUTEROL/IPRATROPIUM 3 ML (DUONEB) VIAL ONE (11:25)
[2018-01-09] MEDS ORDERED: RT-ALBUTEROL SULF 2.5 MG/3 ML PRE-MIX VIAL ONE (11:25)
[2018-01-09] MEDS ORDERED: RT-ALBUTEROL SULF 2.5 MG/3 ML PRE-MIX VIAL INH SCH (11:30)
[2018-01-09] MEDS ORDERED: LORazepam INJ 2 MG/ML (ATIVAN) VIAL IVP ONE ×2 (11:30→12:45)
[2018-01-09] MEDS ORDERED: RT-ALBUTEROL/IPRATROPIUM 3 ML (DUONEB) VIAL INH ONE (11:30)
[2018-01-09 11:40] LABS: ABG BASE EXCESS -0.1 MMOL/L (-2.5-2.5); ABG OXYGEN SATURATION 99 % (94-100); ABG PCO2 30 MMHG (35-45); ABG PO2 106 MMHG (79-93); ABG TCO2 23.9 MMOL/L (21.0-31.0)
[2018-01-09 11:40] LABS: BASOPHILS % (AUTO) 0 % (0-10); EOSINOPHILS # (AUTO) 0.2 10^3/uL (0.0-0.3); EOSINOPHILS % (AUTO) 2 % (0-10); HEMATOCRIT 40 % (35-52); HEMOGLOBIN 13.4 G/DL (11.5-16.0); LYMPHOCYTES # (AUTO) 2.3 X 10^3 (1.0-4.0); LYMPHOCYTES % (AUTO) 22 % (12-44); MEAN CORPUSCULAR HEMOGLOBIN 29 PG (25-34); MEAN CORPUSCULAR HGB CONC 34 G/DL (32-36); MEAN CORPUSCULAR VOLUME 84 FL (80-99); MEAN PLATELET VOLUME 9.7 FL (7.4-10.4); MONOCYTES # (AUTO) 0.6 X 10^3 (0.0-1.0); MONOCYTES % (AUTO) 5 % (0-12); NEUTROPHILS # (AUTO) 7.6 X 10^3 (1.8-7.8); NEUTROPHILS % (AUTO) 71 % (42-75); PLATELET COUNT 324 10^3/uL (130-400); RED BLOOD COUNT 4.71 10^6/uL (4.35-5.85); RED CELL DISTRIBUTION WIDTH 14.9 % (10.0-14.5); WHITE BLOOD COUNT 10.7 10^3/uL (4.3-11.0)
[2018-01-09 11:41] LABS: ALLENS TEST YES-POS; INSPIRED O2 3; PATIENT TEMP 97.9; VENTILATOR NO
--- NOTE | 2018-01-09 11:49 | Diagnostic Imaging Report ---
INDICATION: Dyspnea for three days. COMPARISON: 01/01/2018. DISCUSSION: Single portable upright view of the chest was obtained. Mild cardiomegaly is now present. The lungs remain hyperinflated. No focal consolidation, pleural fluid, or pneumothorax. No osseous abnormality. IMPRESSION: 1. Cardiomegaly without failure. Dictated by: Dictated on workstation # [id number]
--- OUTSIDE RECORDS SUMMARY | 2018-01-09 11:59 | XMS REPORT ---
Author Author ALIZA CARTER Organization [facility] Address [address] [place] [address] Care Team Providers Care Transfer Coordinator Name Role Phone ALIZA CARTER Unavailable PROBLEMS Type Condition ICD9-CM Code MVF13-XZ Code Onset Dates Condition Status SNOMED Code Problem Migraine without aura and without status migrainosus, not intractable G43.009 Active 214723168 Problem Chronic bronchitis, unspecified chronic bronchitis type J42 Active 59321144 Problem Other emphysema J43.8 Active 18202935 Problem Chronic obstructive pulmonary disease, unspecified COPD type J44.9 Active 66174338 Problem COPD with exacerbation J44.1 Active 884713055 Problem Diabetes E11.9 Active 714963954 Problem Methamphetamine use disorder, moderate, 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 Active 15707678 Problem Anxiety F41.9 Active 38398693 Problem Intractable cyclical vomiting with nausea G43.A1 Active 17770463 Problem Tobacco abuse Z72.0 Active 69825722 Problem Migraine G43.909 Active 04347687 Problem Examination of eyes and vision V72.0 Active 143665955 Problem 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 Active Problem Memory loss R41.3 Active 85824594 Problem Bipolar disorder, unspecified F31.9 Active 16612151 Problem TMJ (sprain of temporomandibular joint) S03.4XXA Active 35893349 Problem Bipolar disorder with depression F31.30 Active 19719914 Problem Chronic constipation K59.09 Active 613679569 Problem Generalized anxiety disorder F41.1 Active 99794321 ALLERGIES No Information ENCOUNTERS Encounter Location Date Diagnosis [facility] [address] [address] Dec, [facility] [address] [address] Dec, [facility] [address] [address] 99[address] Nov, [facility] [id number] [place] [address] 21994- 8700 Nov, COPD with exacerbation J44.1 and Urinary tract infection without hematuria, site unspecified N39.0 [facility] [address] [address] Nov, Chronic obstructive pulmonary disease, unspecified COPD type J44.9 [facility] [address] [address] Oct, [facility] [id number] [place] [address] 52648- 0410 Oct, [facility] [id number] [place] [address] 86946- 3017 Oct, [facility] [id number] [place] [address] 50904- 7293 Oct, [facility] [id number] [place] [address] 73545- 3427 Oct, Thrush B37.0 [facility] [id number] [place] [address] 66189- 5468 Sep, COPD with exacerbation J44.1 and Anxiety F41.9 [facility] [address] [address] 46[address] Sep, [facility] [address] [address] 7737 Sep, [facility] [address] [address] 40[address] Sep, [facility] [address] [address] 9[address] Sep, Acute congestive heart failure, unspecified heart failure type I50.9 and Anxiety disorder, unspecified F41.9 [facility] [id number] [address] 1629 Sep, Heart failure, unspecified HF chronicity, unspecified heart failure type I50.9 [facility] [address] [address] 4306 Sep, [facility] [address] [address] 8569 Aug, Chronic obstructive pulmonary disease with acute exacerbation J44.1 [facility] [address] [address] Aug, [facility] [address] [address] 4[address] Aug, [facility] [address], [place] [address] 5912 July, [facility] [address], [place] [address] 1162 July, [facility] [address], [place] [address] 1197 July, Diabetes E11.9 and Chronic obstructive pulmonary disease with acute exacerbation J44.1 [facility] [address], [place] [address] 3527 Jun, Chronic obstructive pulmonary disease with acute exacerbation J44.1 ; Diabetes E11.9 and Tobacco abuse Z72.0 [facility] [address], [place] [address] 1253 Jun, [facility] [address], [place] [address]- 3491 Jun, [facility] [address] [address]- 0748 May, [facility] [address], [place] [address] 4316 May, [facility] [address], [place] [address] May, [facility] [id number] [place] [address] 01058- 2973 16 May, 2017 [facility] [id number] [place] [address] 86318- 7891 15 May, 2017 [facility] [id number] [place] [address] 64964- 0400 14 May, 2017 Diarrhea, unspecified type R19.7 and Intractable cyclical vomiting with nausea G43.A1 [facility] [id number] [place] [address] 47906- 0098 12 May, 2017 [facility] [address] 95943- 2659 05 May, 2017 [facility] [id number] [place] [address] 18617- 7788 28 Apr, 2017 COPD exacerbation J44.1 ; Esophageal candidiasis B37.81 ; Other acute gastritis with hemorrhage K29.01 and Acute posthemorrhagic anemia D62 [facility] [id number] [place] [address] 77874- 5111 Apr, Viral illness B34.9 and COPD exacerbation J44.1 [facility] [id number] [place] [address] 93879 -4202 Apr, Shortness of breath R06.02 and Pneumonia of both lower lobes due to infectious organism J18.9 [facility] [id number] [place] [address] 18558 -1282 Mar, COPD with acute exacerbation J44.1 [facility] [id number] [place] [address] 51178- 9181 Mar, Chronic obstructive pulmonary disease with acute exacerbation J44.1 and Diabetes E11.9 [facility] [id number] [place] [address] 38079- 9873 Mar, [facility] [id number] [place] [address] 58957- 9014 Mar, [facility] [address], [place] [address] Mar, COPD exacerbation J44.1 [facility] [id number] [place] [address] 86249- 1446 Mar, [facility] [id number] [place] [address] 91196- 3904 Mar, Migraine G43.909 ; Hypokalemia E87.6 and Type 2 diabetes mellitus without complications E11.9 [facility] [id number] [place] [address] 14784- 7605 Feb, [facility] [id number] [place] [address] 59143- 6813 Feb, [facility] [id number] [place] [address] 77108- 3824 Feb, Methamphetamine use disorder, moderate, 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 ; Major depressive disorder, recurrent, moderate F33.1 ; Anxiety disorder, unspecified F41.9 and Tobacco abuse Z72.0 [facility] [id number] [place] [address] 31063- 8067 30 Jan, 2017 Major depressive disorder, recurrent, moderate F33.1 [facility] [address], [place] [address]- 4958 16 Jan, 2017 [facility] [id number] [place] [address] 55517- 5024 Jan, [facility] [id number] [place] [address] 45383- 8251 Jan, Major depressive disorder, recurrent, moderate F33.1 [facility] [id number] [place] [address] 04419- 9095 Jan, Major depressive disorder, recurrent, moderate F33.1 ; Anxiety disorder, unspecified F41.9 ; Methamphetamine use disorder, moderate, 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 and Tobacco abuse Z72.0 [facility] [address], [place] [address]- 7116 Jan, [facility] [id number] [place] [address] 41662- 3973 Jan, Chronic obstructive pulmonary disease with acute exacerbation J44.1 and Diabetes E11.9 [facility] [id number] [place] [address] 14572- 6733 Jan, [facility] [id number] [place] [address] 12656- 6091 Jan, [facility] [id number] [place] [address] 28434- 3690 Dec, Acute respiratory failure with hypoxia J96.01 ; Chronic bronchitis, unspecified chronic bronchitis type J42 and Tobacco use Z72.0 [facility] [id number] [place] [address] 30789- 2635 Dec, [facility] [id number] [place] [address] [id number] Nov, Dental caries K02.9 and Dental examination Z01.20 [facility] [id number] [place] [address] 16502- 1984 Nov, Major depressive disorder, recurrent, moderate F33.1 ; Anxiety disorder, unspecified F41.9 and 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 [facility] [id number] [place] [address] [id number] Oct, Dental examination Z01.20 [facility] [id number] [place] [address] 26470- 0405 Oct, [facility] [id number] [place] [address] 83966- 6594 Oct, Diabetes E11.9 and Thrush B37.0 [facility] [id number] [place] [address] 93725- 1052 Oct, [facility] [id number] [place] [address] 36813- 0392 Oct, [facility] [id number] [place] [address] 96934- 1312 Oct, [facility] [id number] [place] [address] 25311- 6317 Sep, Major depressive disorder, recurrent, moderate F33.1 ; Anxiety disorder, unspecified F41.9 and Bipolar disorder, unspecified F31.9 [facility] [id number] [place] [address] 34065- 2134 Sep, Acute exacerbation of chronic obstructive pulmonary disease (COPD) J44.1 and Migraine G43.909 [facility] [id number] [place] [address] 47995- 6541 Sep, [facility] [address] [id number] Sep, [facility] [address] 18973- 6752 Sep, Acute exacerbation of chronic obstructive pulmonary disease (COPD) J44.1 [facility] [id number] [place] [address] 92169 -0309 Sep, Acute exacerbation of chronic obstructive pulmonary disease (COPD) J44.1 [facility] [id number] [place] [address] 49065- 2972 Aug, [facility] [id number] [place] [address] 47948- 9113 Aug, Major depressive disorder, recurrent, moderate F33.1 ; Anxiety disorder, unspecified F41.9 and 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 [facility] [id number] [place] [address] 42462- 2219 Aug, Wheezing R06.2 ; Non morbid obesity due to excess calories E66.09 ; Migraine without aura and without status migrainosus, not intractable G43.009 and Tobacco abuse Z72.0 [facility] [address] [id number] 14 Aug, 2016 Encounter for dental examination Z01.20 [facility] [id number] [place] [address] 66751- 2658 02 Aug, 2016 Major depressive disorder, recurrent, moderate F33.1 ; Anxiety disorder, unspecified F41.9 and 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 [facility] [id number] [place] [address] 67067- 1071 July, [facility] [id number] [place] [address] 93918- 4816 July, [facility] [id number] [place] [address] 07849- 4746 July, [facility] [id number] [place] [address] 01466- 2748 July, Diabetes E11.9 [facility] [id number] [place] [address] 21584- 9136 Jun, Major depressive disorder, recurrent, moderate F33.1 [facility] [id number] [place] [address] 74099- 5297 Jun, Major depressive disorder, recurrent, moderate F33.1 ; 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 ; Generalized anxiety disorder F41.1 and Bipolar disorder, unspecified F31.9 [facility] [address] [place] [address] 18423- 5519 Jun, Diabetes E11.9 ; Migraine G43.909 ; Thrush B37.0 and Wheezing R06.2 [facility] [id number] [place] [address] [id number] 24 Jun, 2016 Dental examination Z01.20 [facility] [id number] [place] [address] 69307- 2829 21 Jun, 2016 [facility] [id number] [place] [address] 52014- 5450 Jun, Major depressive disorder, recurrent, moderate F33.1 ; Anxiety disorder, unspecified F41.9 and 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 [facility] [id number] [place] [address] 18485- 8103 Jun, [facility] [address] 32631- 7224 Jun, Wheezing R06.2 [facility] [address] [id number] Jun, Dental caries K02.9 [facility] [address] 89125- 2170 Jun, Major depressive disorder, recurrent, moderate F33.1 ; Anxiety disorder, unspecified F41.9 and 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 [facility] [address] 29256- 9656 Jun, RLQ abdominal pain R10.31 ; Diabetes E11.9 ; Obesity, unspecified obesity severity, unspecified obesity type E66.9 ; Wheezing R06.2 and Abnormal urinalysis R82.90 [facility] [id number] [place] [address] 26487- 5541 May, [facility] [id number] [place] [address] 72759- 7557 May, Well woman exam Z01.419 ; Breast cancer screening Z12.39 ; Cervical cancer screening Z12.4 ; Urinary frequency R35.0 ; Edema, unspecified type R60.9 and Chronic constipation K59.09 [facility] [address] 20111- 8864 May, Major depressive disorder, recurrent, moderate F33.1 ; Anxiety disorder, unspecified F41.9 and 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 [facility] [address] [id number] May, Dental examination Z01.20 [facility] [id number] [place] [address] 16108- 9680 May, [facility] [id number] [place] [address] 41432- 9573 May, [facility] [id number] [place] [address] 68677- 1867 May, Chronic constipation K59.09 [facility] [id number] [place] [address] 24576- 7890 Apr, [facility] [id number] [place] [address] 99360- 9456 Apr, Major depressive disorder, recurrent, moderate F33.1 ; Anxiety disorder, unspecified F41.9 and 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 [facility] [address] 86336- 4273 Apr, [facility] [id number] [place] [address] 70286- 6680 Mar, Major depressive disorder, recurrent, moderate F33.1 [id number] [place] [address] 54589- 2002 Mar, Major depressive disorder, recurrent, moderate F33.1 ; Generalized anxiety disorder F41.1 and Bipolar I disorder, most recent episode depressed with anxious distress F31.30 [facility] [id number] [place] [address] 62463- 0237 Mar, Diabetes E11.9 ; Non morbid obesity due to excess calories E66.09 ; Breast cancer screening Z12.39 and Encounter for immunization Z23 [id number] [place] [address] 75856- 2452 Mar, Major depressive disorder, recurrent, moderate F33.1 ; Anxiety disorder, unspecified F41.9 and 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 [id number] [place] [address] 83429- 5255 Mar, [facility] [address] [place] [address] 07010- 0232 Feb, Major depressive disorder, recurrent, moderate F33.1 ; Anxiety disorder, unspecified F41.9 and 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 [facility] [address], [place] [address]- 3221 Feb, [facility] [id number] [place] [address] 19601- 6049 Feb, [facility] [address] [place] [address] 70349- 9662 Jan, Major depressive disorder, recurrent, moderate F33.1 ; Generalized anxiety disorder F41.1 and Bipolar disorder, current episode depressed, severe, without psychotic features F31.4 [facility] [id number] [place] [address] 87703- 1120 Jan, Major depressive disorder, recurrent, moderate F33.1 ; Anxiety disorder, unspecified F41.9 and 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 [facility] [address] [place] [address] 73373- 1469 16 Jan, 2016 Bronchitis J40 [facility] [address] [place] [address] 56076- 4970 Jan, [facility] [address] [place] [address] 16704- 9909 Jan, [facility] [address] [place] [address] 04327- 1935 Jan, Elbow injury, right, initial encounter S59.901A ; Multiple contusions T14.8 and Cervical strain, acute, initial encounter S16.1XXA [facility] [address] [place] [address] 90148- 2049 Dec, Major depressive disorder, recurrent, moderate F33.1 ; Generalized anxiety disorder F41.1 and Bipolar disorder with depression F31.30 [facility] [id number] [address]- 1395 Dec, [facility] [address] [facility] [id number] [address]- 6252 Dec, [facility] [address], [place] [address]- 3991 Dec, [facility] [id number] [place] [address] 41460- 7862 Dec, [facility] [id number] [place] [address] 61406- 0180 Dec, Yeast infection B37.9 [facility] [id number] [place] [address] 28724- 7787 Dec, Pneumonia of both lungs due to methicillin resistant Staphylococcus aureus (MRSA), unspecified part of lung J15.212 and Benzodiazepine overdose, accidental or unintentional, subsequent encounter T42.4X1D [facility] [address], [place] [address]- 4847 Dec, [facility] [id number] [place] [address] 94543- 9741 Dec, [facility] [address], [place] [address]- 4792 Dec, Knee pain, left M25.562 and Edema, unspecified type R60.9 [facility] [address], [place] [address]- 8421 Dec, [facility] [address] [facility] [id number] [address]- 6551 Dec, Anxiety disorder, unspecified F41.9 and Bipolar disorder, unspecified F31.9 [facility] [address] [facility] [id number], [place] [address]- 9061 Nov, Major depressive disorder, recurrent, moderate F33.1 ; Anxiety disorder, unspecified F41.9 and 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 [facility] [address], [place] [address]- 7444 Nov, [facility] [id number] [place] [address] 69507- 6111 Nov, Migraine without aura and without status migrainosus, not intractable G43.009 [facility] [id number] [place] [address] 70656- 6500 Nov, Migraine G43.909 [facility] [id number] [place] [address] 63761- 0800 Nov, [facility] [id number] [place] [address] 47893- 2698 Nov, Major depressive disorder, recurrent, moderate F33.1 ; Anxiety disorder, unspecified F41.9 and 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9 ; Edema, unspecified type R60.9 ; Varicose vein of leg I83.90 and Obesity, unspecified obesity severity, unspecified obesity type E66.9 [facility] [address] [place] [address] 39237- 6034 Sep, Edema, unspecified type R60.9 ; Diabetes E11.9 and Knee pain , left M25.562 [facility] [id number] [place] [address] 44568- 9877 Sep, [facility] [id number] [place] [address] 31339- 6787 Sep, [facility] [id number] [place] [address] 88122- 6528 Sep, Major depressive disorder, recurrent, moderate F33.1 ; Generalized anxiety disorder F41.1 and Bipolar disorder, unspecified F31.9 [facility] [id number] [place] [address] 24118- 7786 Aug, Chondromalacia of left knee M94.262 [facility] [id number] [place] [address] 88550- 9368 Aug, Major depressive disorder, recurrent, moderate F33.1 ; Anxiety disorder, unspecified F41.9 and 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 [facility] [id number] [place] [address] 32811- 3267 Aug, [facility] [id number] [place] [address] 29996- 3665 Aug, Osteoarthritis of left knee M17.9 [facility] [id number] [place] [address] 08763- 5930 Aug, [facility] [id number] [place] [address] 52381- 6924 July, Major depressive disorder, recurrent, moderate F33.1 ; Anxiety disorder, unspecified F41.9 and 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 [facility] [id number] [place] [address] 34483- 9026 July, [facility] [id number] [place] [address] 43326- 2398 July, Chronic constipation K59.09 [facility] [id number] [place] [address] 70438- 0762 Jun, [facility] [id number] [place] [address] 76067- 4976 Jun, [facility] [address] [address] [id number] [place] [address] 19081- 8678 14 Jun, 2015 Osteoarthritis of left knee M17.9 [place] [id number] [place] [address] 50728- 5001 Jun, [place] [id number] [place] [address] 13007- 9491 Jun, Generalized anxiety disorder F41.1 ; Bipolar disorder, unspecified F31.9 and Major depressive disorder, recurrent, moderate F33.1 [place] [id number] [place] [address] 18497- 6549 Jun, Migraine G43.909 [place] [id number] [place] [address] 54088- 0392 Jun, Left knee pain M25.562 ; Chronic constipation K59.09 ; Dry mouth R68.2 ; Yeast vaginitis B37.3 and Memory loss R41.3 [place] [id number] [place] [address] 07550- 0278 Jun, [place] [id number] [place] [address] 88502- 2683 30 May, 2015 [place] [id number] [place] [address] 42565- 9389 May, [facility] [id number] [place] [address] 78777- 9173 May, [place] [id number] [place] [address] 65702- 0626 May, [place] [id number] [place] [address] 33500- 8042 May, Acute bronchitis with COPD J44.0 ; Knee pain, left M25.562 and Encounter for tobacco use cessation counseling Z71.6 [place] [id number] [place] [address] 34552- 8983 May, [place] [id number] [place] [address] 00540- 7475 Apr, Diabetes E11.9 ; TMJ (sprain of temporomandibular joint) S03.4XXA ; Tobacco abuse Z72.0 ; Migraine G43.909 and Anxiety F41.9 [place] [id number] [place] [address] 51387- 4434 Apr, Generalized anxiety disorder F41.1 and Bipolar disorder, unspecified F31.9 [place] [id number] [place] [address] 55728- 5031 Apr, Major depressive disorder, recurrent, moderate F33.1 ; Anxiety disorder, unspecified F41.9 and 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 [place] [id number] [place] [address] 89883- 7978 Apr, [place] [id number] [place] [address] 68410- 5139 Mar, [place] [id number] [place] [address] 97822- 2409 Feb, [place] [id number] [place] [address] 14558- 8378 Feb, Major depressive disorder, recurrent, moderate F33.1 ; Anxiety disorder, unspecified F41.9 and 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 [place] [id number] [place] [address] 35796- 3009 Feb, [place] [id number] [place] [address] 32809- 7868 Feb, Generalized anxiety disorder F41.1 and Bipolar disorder, unspecified F31.9 [place] [id number] [place] [address] 51467- 4711 Jan, [facility] [address] 94051- 3321 Jan, [facility] [address] 48570- 1417 Jan, Bipolar disorder, unspecified F31.9 and Generalized anxiety disorder F41.1 [place] [address] 66563- 3430 Dec, [facility] [address] 68156- 4292 Dec, Bipolar disorder, unspecified F31.9 and Generalized anxiety disorder F41.1 [place] [address] 04822- 3040 Dec, Generalized anxiety disorder F41.1 and Major depressive disorder, recurrent, moderate F33.1 [place] [address] 46818- 4164 Oct, Headache 784.0 ; Cough 786.2 ; Vomiting and diarrhea 787.03 and Dysuria 788.1 [place] [address] 24402- 4253 Aug, [place] [address] 11768- 2583 Aug, Headache 784.0 and Shortness of breath 786.05 [place] [address] 82250- 0693 Aug, [place] [address] 19240- 7655 Aug, Migraine 346.90 [place] [address] 97538- 7176 Jun, [place] [address] 78164- 9442 Jun, [facility] [place] [facility] [address] [id number] [place] [address]- 3440 May, [facility] [place] [facility] [address] [id number] [place] [address]- 6899 May, [facility] [place] [facility] [address] [id number] [place] [address]- 9970 May, [facility] [place] [facility] [address] [id number] [place] [address]- 6977 May, [facility] [place] [facility] [address] [id number] [place] [address]- 3387 May, [facility] [place] [facility] [address] [id number] [place] [address]- 3989 May, [facility] [place] [facility] [address] [id number] [place] [address]- 9181 Apr, [facility] [place] [facility] [address] [id number] [place] [address]- 4577 Apr, [facility] [place] [facility] [address] [id number] [place] [address]- 6251 Apr, [facility] [place] [facility] [address] [facility] [id number] [place] [address]- 2692 Apr, [facility] [place] [facility] [address] [id number] [place] [address]- 5439 Apr, [facility] [place] [facility] [address] [id number] [place] [address]- 7845 Mar, [facility] [place] [facility] [address] [id number] [place] [address]- 5041 Mar, [facility] [place] [facility] [address] [id number] [place] [address]- 3611 Mar, [facility] [place] [facility] [address] [id number] [place] [address]- 4777 Mar, [facility] [place] [facility] [address] [id number] [place] [address]- 4486 Feb, [facility] [place] [facility] [address] [id number] [place] [address]- 1242 Feb, [facility] [place] [facility] [address] [id number] [place] 5605 Feb, [facility] [place] [facility] [address] [id number] [place] [address]- 2367 Feb, [facility] [place] [facility] [address] [id number] [place] [address]- 4462 Feb, [facility] [place] [facility] [address] [id number] [place] [address]- 7766 Feb, [facility] [place] [facility] [address] [id number] [place] [address]- 6352 Feb, [facility] [place] [facility] [address] [id number] [place] [address]- 1539 Feb, [facility] [place] [facility] [address] [id number] [place] [address]- 9313 Feb, [facility] [place] [facility] [address] [id number] [place] [address]- 9769 Feb, [facility] [place] [facility] [address] [id number] [place] [address]- 9691 Feb, [facility] [place] [facility] [address] [id number] [place] [address]- 1894 Feb, [facility] [place] [facility] [address] [id number] [place] [address]- 8956 10 Jan, 2014 [facility] [place] [facility] [address] [id number] [place] [address]- 5618 Jan, [facility] [place] [facility] [address] [id number] [place] [address]- 9500 10 Dec, 2013 [facility] [place] [facility] [address] [id number] [place] [address]- 4440 10 Dec, 2013 [facility] [place] [facility] [address] [id number] [place] [address]- 3256 Dec, [facility] [place] [facility] [address] [id number] [place] [address]- 2798 Dec, [facility] [place] [facility] [address] [id number] [place] [address]- 0162 Dec, [facility] [place] [facility] [address] [id number] [place] [address]- 2510 Dec, [facility] [place] [facility] [address] [id number] [place] [address]- 8036 Sep, [facility] [place] [facility] [address] [id number] [place] [address]- 0681 Sep, [facility] [place] [facility] [address] [id number] [place] [address]- 3724 Sep, [facility] [place] [facility] [address] [id number] [place] [address]- 8941 Sep, [facility] [place] [facility] [address] [id number] [place] [address]- 9646 Sep, [facility] [place] [facility] [address] [id number] [place] [address]- 6870 Sep, [facility] [place] [facility] [address] [id number] [place] [address]- 1456 Sep, [facility] [place] [facility] [address] [id number] [place] [address]- 5673 Sep, [facility] [place] [facility] [address] [id number] [place] [address]- 4467 Sep, [facility] [place] [facility] [address] [id number] [place] [address]- 0762 Sep, [facility] [place] [facility] [address] [id number] [place] [address]- 1917 Aug, [facility] [place] [facility] [address] [id number] [place] 3725 Aug, [facility] [place] [facility] [address] [id number] [place] [address]- 7278 Aug, [facility] [place] [facility] [address] [id number] [place] [address]- 6579 Aug, [facility] [place] [facility] [address] [id number] [place] [address]- 1282 Aug, [facility] [place] [facility] [address] [id number] [place] [address]- 3431 Aug, [facility] [place] [facility] [address] [id number] [place] [address]- 9049 Aug, [facility] [place] [facility] [address] [id number] [place] [address]- 2977 Aug, [facility] [place] [facility] [address] [id number] [place] [address]- 0692 Aug, [facility] [place] [facility] [address] [id number] [place] [address]- 7359 Aug, [facility] [place] [facility] [address] [id number] [place] [address]- 3975 Aug, [facility] [place] [facility] [address] [id number] [place] [address]- 1068 Aug, [facility] [place] [facility] [address] [id number] [place] [address]- 4111 Aug, [facility] [place] [facility] [address] [id number] [place] [address]- 7612 July, [facility] [place] [facility] [address] [id number] [place] [address]- 5158 July, [facility] [place] [facility] [address] [id number] [place] [address]- 2057 July, [facility] [place] [facility] [address] [id number] [place] [address]- 4688 July, [facility] [place] [facility] [address] [id number] [place] [address]- 1643 July, [facility] [address] [id number] [place] [address]- 3797 July, [facility] [place] [facility] [address] [id number] [place] [address]- 6030 July, [facility] [place] [facility] [address] [id number] [place] [address]- 3872 Jun, [facility] [place] [facility] [address] [id number] [place] [address]- 3012 Jun, [facility] [place] [facility] [address] [id number] [place] [address]- 1082 Jun, [facility] [place] [facility] [address] [id number] [place] [address]- 0700 Jun, [facility] [place] [facility] [address] [id number] [place] [address]- 9875 Jun, [facility] [place] [facility] [address] [id number] [place] [address]- 8873 Jun, [facility] [place] [facility] [address] [id number] [place] [address]- 2166 Jun, [facility] [place] [facility] [address] [id number] [place] [address]- 7695 May, [facility] [place] [facility] [address] [id number] [place] [address]- 7366 17 May, 2013 [facility] [place] [facility] [address] [id number] [place] [address]- 7029 14 May, 2013 [facility] [place] [facility] [address] [id number] [place] [address]- 2522 14 May, 2013 [facility] [place] [facility] [address] [id number] [place] [address]- 9502 13 May, 2013 [facility] [place] [facility] [address] [id number] [place] [address]- 3311 13 May, 2013 [facility] [place] [facility] [address] [id number] [place] [address]- 1610 10 May, 2013 [facility] [place] [facility] [address] [id number] [place] [address]- 8951 10 May, 2013 [facility] [place] [facility] [address] [id number] [place] [address]- 3213 May, [facility] [place] [facility] [address] [id number] [place] [address]- 6723 Apr, [facility] [place] [facility] [address] [id number] [place] [address]- 3397 Apr, [facility] [place] [facility] [address] [id number] [place] [address]- 0117 18 Apr, 2013 [facility] [place] [facility] [address] [id number] [place] [address]- 6377 Apr, [facility] [place] [facility] [address] [id number] [place] [address]- 7736 Apr, [facility] [place] [facility] [address] [id number] [place] [address]- 8945 Apr, [facility] [place] [facility] [address] [id number] [place] [address]- 5054 Apr, [facility] [place] [facility] [address] [id number] [place] [address]- 3929 Apr, [facility] [place] [facility] [address] [id number] [place] [address]- 1157 Apr, [facility] [place] [facility] [address] [id number] [place] [address]- 1056 Apr, [facility] [place] [facility] [address] [id number] [place] [address]- 7266 Mar, [facility] [place] [facility] [address] [id number] [place] [address]- 4881 Mar, [facility] [place] [facility] [address] [id number] [place] [address]- 5798 09 Mar, 2013 [facility] [address] [id number] [place] [address]- 3009 Mar, [facility] [place] [facility] [address] [id number] [place] [address]- 3140 Mar, [facility] [place] [facility] [address] [id number] [place] [address]- 5745 Mar, [facility] [place] [facility] [address] [id number] [place] [address]- 0664 Mar, [facility] [place] [facility] [address] [id number] [place] [address]- 6200 Mar, [facility] [place] [facility] [address] [id number] [place] [address]- 5963 Feb, [facility] [address] [id number] [place] [address]- 2292 Feb, [facility] [place] [facility] [address] [id number] [place] [address]- 0787 Jan, [facility] [place] [facility] [address] [id number] [place] [address]- 8872 Jan, [facility] [place] [facility] [address] [id number] [place] [address]- 7530 15 Jan, 2013 [facility] [place] [facility] [address] [id number] [place] [address]- 7977 15 Jan, 2013 [facility] [place] [facility] [address] [id number] [place] [address]- 9206 Jan, [facility] [place] [facility] [address] [id number] [place] [address]- 4106 Jan, [facility] [place] [facility] [address] [id number] [place] [address]- 9231 05 Jan, 2013 [facility] [place] [facility] [address] [id number] [place] [address]- 4239 05 Jan, 2013 [facility] [place] [facility] [address] [id number] [place] [address]- 5672 Dec, [facility] [place] [facility] [address] [id number] [place] [address]- 8648 Dec, [facility] [place] [facility] [address] [id number] [place] [address]- 6256 Dec, [facility] [place] [facility] [address] [id number] [place] [address]- 6248 20 Nov, 2012 [facility] [place] [facility] [address] [id number] [place] [address]- 5465 Nov, [facility] [place] [facility] [address] [id number] [place] [address]- 6216 12 Nov, 2012 [facility] [place] [facility] [address] [id number] [place] [address]- 3213 Nov, [facility] [place] [facility] [address] [id number] [place] [address]- 3985 Nov, [facility] [place] [facility] [address] [id number] [place] [address]- 6527 Nov, [facility] [place] [facility] [address] [id number] [place] [address]- 1240 Oct, [facility] [place] [facility] [address] [id number] [place] [address]- 8322 Oct, [facility] [place] [facility] [address] [id number] [place] [address]- 8304 Sep, [facility] [place] [facility] [address] [id number] [place] [address]- 3673 Sep, [facility] [place] [facility] [address] [id number] [place] [address]- 9504 Sep, [facility] [place] [facility] [address] [id number] [place] [address]- 1838 Sep, [facility] [place] [facility] [address] [id number] [place] [address]- 7096 Sep, [facility] [address] [id number] [place] 7068 Sep, [facility] [place] [facility] [address] [id number] [place] [address]- 2578 Sep, [facility] [place] [facility] [address] [id number] [place] [address]- 8362 Aug, [facility] [place] [facility] [address] [id number] [place] [address]- 5830 Aug, [facility] [place] [facility] [address] [id number] [place] [address]- 6948 Aug, [facility] [place] [facility] [address] [id number] [place] [address]- 4943 Aug, [facility] [place] [facility] [address] [id number] [place] [address]- 5749 Aug, [facility] [place] [facility] [address] [id number] [place] [address]- 2860 Aug, [facility] [place] [facility] [address] [id number] [place] [address]- 8590 July, [facility] [place] [facility] [address] [id number] [place] [address]- 1360 July, [facility] [place] [facility] [address] [id number] [place] [address]- 9471 July, [facility] [place] [facility] [address] [id number] [place] [address]- 0545 July, [facility] [place] [facility] [address] [id number] [place] [address]- 9080 July, [facility] [place] [facility] [address] [id number] [place] [address]- 9488 July, [facility] [place] [facility] [address] [id number] [place] [address]- 4487 Jun, [facility] [place] [facility] [address] [id number] [place] [address]- 7148 Jun, [facility] [address] [id number] [place] [address]- 4138 15 Jun, 2012 [facility] [address] [id number] [place] [address]- 7109 Jun, [facility] [address] [id number] [place] [address]- 7227 Jun, [facility] [address] [id number] [place] [address]- 7583 Jun, [facility] [address] [id number] [place] [address]- 3398 Jun, [facility] [address] [facility] [id number] [place] [address]- 7133 May, [facility] [id number] [place] [address]- 8766 May, [facility] [address] [facility] [id number] [place] [address]- 0673 26 Apr, 2012 [facility] [address] [id number] [place] [address]- 2329 Apr, [facility] [address] [id number] [place] [address]- 8554 18 Apr, 2012 [facility] [address] [id number] [place] [address]- 7532 Apr, [facility] [address] [facility] [id number] [place] [address] 12 Apr, 2012 [facility] [place] [facility] [address] [id number] [place] [address] 08 Apr, 2012 [facility] [address] [facility] [id number] [place] [address] 07 Apr, 2012 [facility] [id number] [address] 07 Apr, 2012 [facility] [address] [id number] [place] [address] Apr, [facility] [address] [id number] [place] [address] Apr, [facility] [address] [id number] [place] [address] Apr, [facility] [address] [id number] [place] [address] Mar, [facility] [address] [id number] [place] [address]12 Mar, [facility] [address] [id number] [place] [address]149 Mar, [facility] [address] [id number] [place] [address]- [address]32 Mar, [facility] [address] [id number] [place] [address] Mar, [facility] [address] [id number] [place] [address] 1331 Mar, [facility] [address] [id number] [place] [address] 8095 Mar, [facility] [address] [id number], [place] [address] Mar, [facility] [address] [id number], [place] [address] 69[address] Mar, [facility] [address] [id number] [place] [address]- 4295 Mar, [facility] [place] [facility] [address] [id number] [place] [address]- 6127 Mar, [facility] [place] [facility] [address] [id number] [place] [address] 1908 Mar, [facility] [place] [facility] [address] [id number] [place] [address] 8582 Mar, [facility] [address] [id number] [place] [address] Feb, [facility] [place] [facility] [address] [id number] [place] [address] Feb, [facility] [place] [facility] [address] [id number] [place] [address] 5636 Feb, [facility] [place] [facility] [address] [id number] [place] [address] Feb, [facility] [place] [facility] [address] [id number] [place] [address]- 7316 Feb, [facility] [place] [facility] [address] [id number] [place] [address] 1894 Feb, [facility] [place] [facility] [address] [id number] [place] [address]- 5335 Feb, [facility] [address] [id number] [place] [address] 5310 Feb, [facility] [place] [facility] [address] [id number] [place] [address] 6396 Feb, [facility] [place] [facility] [address] [id number] [place] [address]388 Feb, [facility] [place] [facility] [address] [id number] [place] [address]- 2491 Feb, [facility] [place] [facility] [address] [id number] [place] [address] 2546 05 Feb, 2012 [facility] [place] [facility] [address] [id number] [place] [address]- 4766 Feb, [facility] [place] [facility] [address] [id number] [place] [address]- 2106 Feb, [facility] [place] [facility] [address] [id number] [place] [address]- 9200 Feb, [facility] [place] [facility] [address] [id number] [place] [address] 279[address] Jan, [facility] [place] [facility] [address] [id number] [place] [address]- 2816 Jan, [facility] [place] [facility] [address] [id number] [place] [address]- 3532 Jan, [facility] [place] [facility] [address] [id number] [place] [address]- 1462 Jan, [facility] [place] [facility] [address] [id number] [place] [address]- 7220 Dec, [facility] [place] [facility] [address] [id number] [place] [address]- 1124 Dec, [facility] [place] [facility] [address] [id number] [place] [address]- 4560 Dec, [facility] [place] [facility] [address] [id number], [place] [address] Dec, [facility] [place] [facility] [address] [id number], [place] [address]- 1184 Dec, [facility] [place] [facility] [address] [id number], [place] [address]- [address]641 Dec, [facility] [place] [facility] [address] [id number], [place] [address]- 2720 Dec, [facility] [place] [facility] [address] [id number], [place] [address]- 6314 Dec, [facility] [place] [facility] [address] [id number], [place] [address]- 3652 Dec, [facility] [place] [facility] [address] [id number], [place] [address] Dec, [facility] [place] [facility] [address] [facility] [id number][place] [address] Dec, [facility] [place] [facility] [address] [id number] [place] [address]- 3709 25 Sep, 2011 [facility] [place] [facility] [address] [id number] [place] [address] 2546 24 Sep, 2011 [facility] [place] [facility] [address] [id number] [place] [address] 2546 20 Sep, 2011 [facility] [place] [facility] [address] [id number] [place] [address] 2546 19 Sep, 2011 [facility] [place] [facility] [address] [id number] [place] [address] 2546 17 Sep, 2011 [facility] [place] [facility] [address] [id number] [place] [address]- 4816 16 Sep, 2011 [facility] [place] [facility] [address] [id number] [place] [address] 2546 14 Sep, 2011 [facility] [place] [facility] [address] [id number] [place] [address]- 1937 13 Sep, 2011 [facility] [place] [facility] [address] [id number] [place] [address]- 3608 12 Sep, 2011 [facility] [place] [facility] [address] [id number] [place] [address] 07 Sep, 2011 [facility] [place] [facility] [address] [id number] [place] [address] 06 Sep, 2011 [facility] [place] [facility] [address] [id number] [place] [address] 06 Sep, 2011 [facility] [place] [facility] [address] [id number] [place] [address] 2541 05 Sep, 2011 [facility] [place] [facility] [address] [id number] [place] [address] 2547 29 Oct, 2011 [facility] [place] [facility] [address] [id number] [place] [address] 29 Oct, 2011 [facility] [place] [facility] [address] [id number] [place] [address] 28 Oct, 2011 [facility] [place] [facility] [address] [id number] [place] [address] Oct, [facility] [place] [facility] [address] [id number] [place] [address] Oct, [facility] [place] [facility] [address] [id number] [place] [address] Oct, [facility] [place] [facility] [address] [id number] [place] [address] Oct, [facility] [place] [facility] [address] [id number] [place] [address] Oct, [facility] [place] [facility] [address] [id number] [place] [address] Oct, [facility] [place] [facility] [address] [id number] [place] [address] Oct, [facility] [place] [facility] [address] [id number] [place] [address] Oct, [facility] [place] [facility] [address] [id number] [place] [address] Sep, [facility] [place] [facility] [address] [id number] [place] [address] Sep, [facility] [place] [facility] [address] [id number] [place] [address] Sep, [facility] [place] [facility] [address] [id number] [place] [address] Sep, [facility] [place] [facility] [address] [id number] [place] [address] Sep, [facility] [place] [facility] [address] [id number] [place] [address] Sep, [facility] [place] [facility] [address] [id number] [place] [address] Aug, [facility] [place] [facility] [address] [id number] [place] [address] July, [facility] [place] [facility] [address] [id number] [place] [address] July, [facility] [place] [facility] [address] [id number] [place] [address] Jun, [facility] [place] [facility] [address] [id number] [place] [address] Jun, [facility] [place] [facility] [address] [id number] [place] [address] Jun, [facility] [place] [facility] [address] [id number] [place] [address] Jun, [facility] [place] [facility] [address] [id number] [place] [address] Jun, [facility] [place] [facility] [address] [id number] [place] [address] Jun, [facility] [place] [facility] [address] [id number] [place] [address] Jun, [facility] [place] [facility] [address] [id number] [place] [address] Jun, [facility] [place] [facility] [address] [id number] [place] [address] Jun, [facility] [place] [facility] [address] [id number] [place] [address] 5[address] Jun, [facility] [place] [facility] [address] [id number] [place] [address] Jun, [facility] [place] [facility] [address] [id number] [place] [address] May, [facility] [place] [facility] [address] [id number] [place] [address] 16 May, 2011 [facility] [place] [facility] [address] [id number] [place] [address] 14 May, 2011 [facility] [place] [facility] [address] [id number] [place] [address] May, [facility] [address] [id number] [place] [address] Apr, [facility] [place] [facility] [address] [id number] [place] [address] 2546 Apr, [facility] [place] [facility] [address] [id number] [place] [address] Apr, [facility] [place] [facility] [address] [id number] [place] [address] 95[address] Apr, [facility] [place] [facility] [address] [id number] [place] [address] 134[address] Apr, [facility] [place] [facility] [address] [id number] [place] [address] Apr, [facility] [place] [facility] [address] [id number] [place] [address] Apr, [facility] [place] [facility] [address] [id number] [place] [address] Apr, [facility] [place] [facility] [address] [id number] [place] [address] Mar, [facility] [place] [facility] [address] [id number] [place] [address] Mar, [facility] [place] [facility] [address] [id number] [place] [address] Mar, [facility] [place] [facility] [address] [id number] [place] [address] 18 Mar, 2011 [facility] [place] [facility] [address] [id number] [place] [address] 2546 17 Mar, 2011 [facility] [place] [facility] [address] [id number] [place] [address]- [address] 13 Mar, 2011 [facility] [place] [facility] [address] [id number] [place] [address] Mar, [facility] [place] [facility] [address] [id number] [place] [address] Mar, [facility] [place] [facility] [address] [id number] [place] [address] Mar, [facility] [place] [facility] [address] [id number] [place] [address] Mar, [facility] [place] [facility] [address] [id number] [place] [address] Mar, [facility] [place] [facility] [address] [id number] [place] [address] 40[address] Mar, [facility] [place] [facility] [address] [id number] [place] [address] Mar, [facility] [place] [facility] [address] [id number] [place] [address] 8[address] Mar, [facility] [place] [facility] [address] [id number] [place] [address]- 4[address] Mar, [facility] [place] [facility] [address] [id number] [place] [address]- 8[address] Mar, [facility] [place] [facility] [address] [id number] [place] [address] Feb, [facility] [place] [facility] [address] [id number] [place] [address]- 1858 Feb, [facility] [place] [facility] [address] [id number] [address] Feb, [facility] [place] [facility] [address] [id number] [place] [address]- [address] Jan, [facility] [place] [facility] [address] [id number] [place] [address]- 6679 Jan, [facility] [place] [facility] [address] [id number] [place] [address] 7[address] Jan, [facility] [place] [facility] [address] [id number] [address] Dec, [facility] [address] [id number] [address] Dec, [facility] [address] [id number] [address] Nov, [facility] [address] [id number] [address] Oct, [facility] [id number] [address] Oct, [facility] [id number] [address] 39[address] Oct, [facility] [id number], [place] [address] Sep, [facility] [id number], [place] [address] Apr, [facility] [address] [id number] [address] Feb, [facility] [address] [id number], [place] [address] 2546 Jan, IMMUNIZATIONS No Known Immunizations SOCIAL HISTORY Never Assessed REASON FOR VISIT Medication question PLAN OF CARE VITAL SIGNS MEDICATIONS Medication Instructions Dosage Frequency Start Date End Date Duration Status PredniSONE 5 MG Orally Once a day 12 tablets day 1, then decrease by one tablet a day until gone 24h Dec, Jan, 12 days Active RESULTS No Results PROCEDURES No [...] 2/2 Benzos OD, pneumonia MRSA, MAYRA, Hypokalemia-- [facility] 12/20/2015 Hospitalization History COPD exacerbation, Asthma-[facility] 09/21/16 Hospitalization History COPD-[facility] 12/30/2016 [facility] [place] [facility] or so. Hospitalization History for COPD x2 Mar 2017 Hospitalization History Upper GI bleed at apr 2017 Hospitalization History [facility] [place]- COPD Exacerbation, diarrhea 05/23/2017 Hospitalization History COPD exacerbation-[facility] 06/13/17 Hospitalization History CHF 09/09/2017 Hospitalization History COPD-[facility]I--[facility] 11/2017
[2018-01-09] MEDS ORDERED: ONDANSETRON 4 MG/2 ML (SDV) Z0FRAN IVP ONE (12:00)
[2018-01-09] MEDS ORDERED: PROMETHAZINE INJ 25 MG/ML (PHENERGAN) AMP IVP ONE (12:00)
[2018-01-09 12:01] LABS: ALANINE AMINOTRANSFERASE 15 U/L (0-55); ALBUMIN 4.2 GM/DL (3.2-4.5); ALKALINE PHOSPHATASE 69 U/L (40-136); BILIRUBIN,TOTAL 0.6 MG/DL (0.1-1.0); BUN/CREATININE RATIO 10; CALCIUM 10.1 MG/DL (8.5-10.1); CARBON DIOXIDE 24 MMOL/L (21-32); CHLORIDE 104 MMOL/L (98-107); CREATININE SERUM 0.88 MG/DL (0.60-1.30); GFR ESTIMATED > 60; GLUCOSE 111 MG/DL (70-105); MAGNESIUM 1.8 MG/DL (1.8-2.4); SODIUM 140 MMOL/L (135-145); TOTAL PROTEIN 6.9 GM/DL (6.4-8.2)
--- NOTE | 2018-01-09 13:19 | ED Respiratory ---
General Chief Complaint: Respiratory Problems Stated Complaint: SOB/FACIAL SWELLING Nursing Triage Note: PATIENT AMBULATORY TO ER WITH COMPLAINT OF SHORTNESS OF BREATH SINCE AND FACIAL SWELLING. PATIENT IS ON 3 LPM OF OXYGEN VIA NASAL CANNULA AT ALL TIMES FOR COPD AND HEART FAILURE. PATIENT STATES SHE HAS RECENTLY BEEN SEEN IN ER FOR SHORTNESS OF BREATH. SHE STATES IT HAS GOTTEN WORSE THIS MORNING. PATIENT IS IN MODERATE DISTRESS WITH RAPID BREATHING RATE OF 30, DIFFUSE WHEEZES, AND IS ANXIOUS. Source: patient Exam Limitations: no limitations History of Present Illness Date Seen by Provider: Jan 09, 2018 Time Seen by Provider: 11:10 Initial Comments Patient is a 52-year-old female who presents to the emergency room with complaints of increasing shortness of breath, wheezing, fluid collection under her eyelids. She wears continuous oxygen at 3 L via nasal cannula for COPD and CHF. She's been seen twice in the emergency room over the past 3 weeks for similar issues and was placed on prednisone. She has continued the prednisone and was seen by Dr. Martinez 2 days ago for the facial swelling and shortness of breath and she has continued her prednisone and increased her Lasix from 20 mg to 40 mg for 3 days. Patient reports that she has not taken any of the extra Lasix yet. She has diffuse faint wheezes throughout all lung shay on exam. She is not in any respiratory distress. Still reports smoking 1/2 packs per day. She has a long history of anxiety. Timing/Duration: just prior to arrival Prior Episodes/Possible Cause: frequent episodes, chronic episodes Associated Symptoms: shortness of breath, wheezing Allergies and Home Medications Allergies Coded Allergies: buspirone (Verified Allergy, Mild, 05/02/17) Made"legs Shaky" amitriptyline (Verified Allergy, Unknown, 05/02/17) " MAKES ME DO WEIRD THINGS LIKE WALK IN MY SLEEP AND HAVE HALLUCINATIONS." Home Medications Albuterol Sulfate 1 Puff Puff, 2 PUFF IH Q4H PRN for SHORTNESS OF BREATH, ( Reported) Aspirin 81 Mg Tablet., 81 MG PO DAILY, (Reported) Fluticasone/Salmeterol 1 Each Blst.w.dev, 1 PUFF IH BID, (Reported) Furosemide 20 Mg Tablet, 20 MG PO DAILY, (Reported) Glimepiride 1 Mg Tablet, 1 MG PO DAILY PRN for WHEN TAKING PREDNISONE, (Reported ) Ipratropium/Albuterol Sulfate 3 Ml Ampul.neb, 3 ML IH QID PRN for SHORTNESS OF BREATH, (Reported) Levofloxacin 500 Mg Tablet, 500 MG PO DAILY Prescribed by: CONNOR JOHNSTON on 11/22/17 1118 Metoprolol Tartrate 25 Mg Tablet, 12.5 MG PO BID, (Reported) TAKES 1/2 (25MG) TABLET Ondansetron 4 Mg Tab.rapdis, 4 MG PO Q6H PRN for NAUSEA/VOMITING Prescribed by: ABIGAIL PASCUAL on 12/06/17 1434 Prednisone 10 Mg Tab, 10 MG PO DAILY 5 tabs (50mg) Day 1 4 tabs (40mg) Day 2 4 tabs (40mg) Day 3 3 tabs (30mg) Day 4 3 tabs (30mg) Day 5 2 tabs (20mg) Day 6 2 tabs (20mg) Day 7 1 tab (10Mg) Day 8 Prescribed by: CONNOR JOHNSTON on 11/22/17 111 Prednisone 20 Mg Tab, 40 MG PO DAILY Prescribed by: ABIGAIL PASCUAL on 12/06/17 1434 Prednisone 5 Mg Tablet, 5 MG PO UD 12 PILLS DAY 1, THEN DECREASE BY 1 PILL A DAY UNTIL GONE Prescribed by: TIMOTHY HUGHES on 12/26/17 194 Sacubitril/Valsartan 1 Each Tablet, 1 TAB PO BID, (Reported) Tiotropium Valmy 1 Inh Aerp, 1 CAP IH DAILY, (Reported) Patient Home Medication List Home Medication List Reviewed: Yes Review of Systems Review of Systems Constitutional: see HPI; No chills, No fever Respiratory: see HPI, short of breath, wheezing Cardiovascular: see HPI, edema (facial edema) All Other Systems Reviewed Negative Unless Noted: Yes Past Xedtrgs-Wopzzw-Jnkfie Hx Past Med/Social Hx: Reviewed Nursing Past Med/Soc Hx Patient Social History Alcohol Use: Denies Use Recreational Drug Use: No (4 YRS AGO) Drug of Choice: +IV METH past hx Smoking Status: Current Everyday Smoker Type Used: Cigarettes 2nd Hand Smoke Exposure: Yes Recent Foreign Travel: No Contact w/Someone Who Travel: No Recent Infectious Disease Expo: No Recent Hopitalizations: Yes Physical Abuse: No Sexual Abuse: No Mistreated: No Fear: No Immunizations Up To Date Tetanus Booster (TDap): Unknown Date of Pneumonia Vaccine: Dec 08, 2011 Date of Influenza Vaccine: Dec 31, 2016 Seasonal Allergies Seasonal Allergies: No Past Medical History Surgeries: No Respiratory: Yes (O2 AT 2-3L/NC) Sleep Apnea, COPD Currently Using CPAP: No Currently Using BIPAP: Yes Cardiac: Yes (HAD HEART CATH. 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 Disorders: Denies [employer]IVE History: Menopausal Sexually Transmitted Disease: No HIV/AIDS: No Genitourinary: No Gastrointestinal: Yes Ulcer Musculoskeletal: Yes (chronic shoulder and neck pain) Endocrine: Yes (DM- only while on steriods per pt) Diabetes, Non-Insulin dep HEENT: No Cancer: No Psychosocial: Yes Sleep Difficulties, Anxiety, Suicide Attempts, Bipolar, Depression Integumentary: No Blood Disorders: No Adverse Reaction/Blood Tranf: No Family Medical History Reviewed Nursing Family Hx Cancer 03 MOTHER, Onset:66 (LUNG ) 09 BROTHER (LUNG ) Congestive heart failure 03 FATHER Heart Disease, Cancer Physical Exam Vital Signs - First Documented 01/09/18 11:10 Temp 97.9 Pulse 94 Resp 30 B/P (MAP) 149/104 (119) Pulse Ox 99 O2 Delivery Nasal Cannula O2 Flow Rate 3.00 Capillary Refill : Less Than 3 Seconds Height: 5'9.00" Weight: 200lbs. 12.0oz. 90.362664gt; 29.1 BMI Method:Stated General Appearance: WD/WN, no apparent distress Eyes: Bilateral Eye Normal Inspection, Bilateral Eye PERRL, Bilateral Eye EOMI HEENT: PERRL/EOMI, normal ENT inspection, TMs normal, pharynx normal, other ( facial edema. Reports that she sleep with her face down in the pillow.) Neck: non-tender, full range of motion, supple, normal inspection, carotid bruit Respiratory: chest non-tender, no respiratory distress, no accessory muscle use , decreased breath sounds, wheezing (throughout lung shay.) Cardiovascular: normal peripheral pulses, regular rate, rhythm, no edema, no gallop, no JVD, no murmur Extremities: normal range of motion, non-tender, normal inspection, no pedal edema, no calf tenderness, normal capillary refill, pelvis stable Neurologic/Psychiatric: alert, normal mood/affect, oriented x 3 Skin: normal color, warm/dry Progress/Results/Core Measures Suspected Sepsis Recent Fever Within 48 Hours: No Infection Criteria Present: None New/Unexplained Altered Menta: No Sepsis Screen: No Definite Risk SIRS Temperature:97.9 Pulse: 94 Respiratory Rate: 30 Laboratory Tests 01/09/18 11:29: White Blood Count 10.7 Blood Pressure 149 /104 Mean: 119 Laboratory Tests 01/09/18 11:29: Creatinine 0.88, Platelet Count 324, Total Bilirubin 0.6 Results/Orders Lab Results Laboratory Tests Test 01/09/18 11:29 01/09/18 11:35 Range/Units White Blood Count 10.7 4.3-11.0 10^3/uL Red Blood Count 4.71 4.35-5.85 10^6/uL Hemoglobin 13.4 11.5-16.0 G/DL Hematocrit 40 35-52 % Mean Corpuscular Volume 84 80-99 FL Mean Corpuscular Hemoglobin 29 25-34 PG Mean Corpuscular Hemoglobin Concent 34 32-36 G/DL Red Cell Distribution Width 14.9 H 10.0-14.5 % Platelet Count 324 130-400 10^3/uL Mean Platelet Volume 9.7 7.4-10.4 FL Neutrophils (%) (Auto) 71 42-75 % Lymphocytes (%) (Auto) 22 12-44 % Monocytes (%) (Auto) 5 0-12 % Eosinophils (%) (Auto) 2 0-10 % Basophils (%) (Auto) 0 0-10 % Neutrophils # (Auto) 7.6 1.8-7.8 X 10^3 Lymphocytes # (Auto) 2.3 1.0-4.0 X 10^3 Monocytes # (Auto) 0.6 0.0-1.0 X 10^3 Eosinophils # (Auto) 0.2 0.0-0.3 10^3/uL Basophils # (Auto) 0.0 0.0-0.1 10^3/uL Sodium Level 140 135-145 MMOL/L Potassium Level 4.0 3.6-5.0 MMOL/L Chloride Level 104 98-107 MMOL/L Carbon Dioxide Level 24 21-32 MMOL/L Anion Gap 12 5-14 MMOL/L Blood Urea Nitrogen 9 7-18 MG/DL Creatinine 0.88 0.60-1.30 MG/DL Estimat Glomerular Filtration Rate > 60 BUN/Creatinine Ratio 10 Glucose Level 111 H 70-105 MG/DL Calcium Level 10.1 8.5-10.1 MG/DL Corrected Calcium 9.9 8.5-10.1 MG/DL Magnesium Level 1.8 1.8-2.4 MG/DL Total Bilirubin 0.6 0.1-1.0 MG/DL Aspartate Amino Transf (AST/SGOT) 18 5-34 U/L Alanine Aminotransferase (ALT/SGPT) 15 0-55 U/L Alkaline Phosphatase 69 40-136 U/L B-Type Natriuretic Peptide 218.9 H <100.0 PG/ML Total Protein 6.9 6.4-8.2 GM/DL Albumin 4.2 3.2-4.5 GM/DL Blood Gas Puncture Site RT RAD Blood Gas Patient Temperature 97.9 Arterial Blood pH 7.50 H 7.37-7.43 Arterial Blood Partial Pressure CO2 30 L 35-45 MMHG Arterial Blood Partial Pressure O2 106 H 79-93 MMHG Arterial Blood HCO3 23 23-27 MMOL/L Arterial Blood Total CO2 23.9 21.0-31.0 MMOL/L Arterial Blood Oxygen Saturation 99 94-100 % Arterial Blood Base Excess -0.1 -2.5-2.5 MMOL/L Torsten Test YES-POS Blood Gas Ventilator Setting NO Blood Gas Inspired Oxygen 3 My Orders Orders - AARON MCKEON Cbc With Automated Diff (01/09/18 11:19) Comprehensive Metabolic Panel (01/09/18 11:19) BNP (01/09/18 11:19) Chest 1 View, Ap/Pa Only (01/09/18 11:19) Magnesium (01/09/18 11:19) Ekg Tracing (01/09/18 11:19) O2 (01/09/18 11:19) Saline Lock/Iv-Start (01/09/18 11:19) Monitor-Rhythm Ecg Trace Only (01/09/18 11:19) Lorazepam Injection (Ativan Injection) (01/09/18 11:30) Albuterol Pre-Mix Nebs (Rt) (Proventil (01/09/18 11:30) Svn Small Volume Nebulizer (01/09/18 11:19) Albuterol/Ipra Inhalation Soln (Duoneb I (01/09/18 11:30) Svn Small Volume Nebulizer (01/09/18 11:19) Albuterol Pre-Mix Nebs (Rt) (Proventil (01/09/18 11:25) Albuterol/Ipra Inhalation Soln (Duoneb I (01/09/18 11:25) Arterial Blood Gas (01/09/18 11:32) Ondansetron Injection (Zofran Injectio (01/09/18 12:00) Promethazine Injection (Phenergan Injec (01/09/18 12:00) Lorazepam Injection (Ativan Injection) (01/09/18 12:45) Arterial Blood Draw (01/09/18 ) Medications Given in ED Current Medications Medications Dose Ordered Sig/Vladimir Route Start Time Stop Time Status Last Admin Dose Admin Lorazepam 1 mg ONCE ONCE IVP 01/09/18 12:45 01/09/18 12:46 DC 01/09/18 12:41 1 MG Promethazine HCl 25 mg ONCE ONCE IVP 01/09/18 12:00 01/09/18 12:01 DC 01/09/18 11:59 25 MG Vital Signs/I&O 01/09/18 01/09/18 01/09/18 01/09/18 11:10 11:10 11:32 14:30 Temp 97.9 98.2 Pulse 94 119 Resp 30 20 B/P (MAP) 149/104 (119) 135/95 (108) Pulse Ox 99 100 100 99 O2 Delivery Nasal Cannula Nasal Cannula Nasal Cannula O2 Flow Rate 3.00 3.00 3.00 3.00 Capillary Refill : Less Than 3 Seconds Blood Pressure Mean: 119 Progress Note : Time: 13:15 Progress Note I have seen and evaluated the patient. I have informed her of her laboratory and imaging studies. Her lung sounds have improved and she is no longer wheezing. She agrees with plan of care, return precautions were given. Diagnostic Imaging Diagonstic Imaging: Xray Plain Films/CT/US/NM/MRI: chest Comments NAME: [facility] REC#: [id number] PHYSICIAN: AARON MCKEON CC: AARNO MCKEON; THOMAS BAR MD Page 1 of 1 RADIOLOGY REPORT VIA [place], [place] CC: AARON MCKEON; THOMAS BAR MD Page 1 of 1 RADIOLOGY REPORT NAME: [facility] REC#: [id number] PT STATUS: DEP ER : 1965 PHYSICIAN: AARON MCKEON ADMIT DATE: 01/09/18/ER Signed Date of Exam: 01/09/18 CHEST 1 VIEW, AP/PA ONLY INDICATION: Dyspnea for three days. COMPARISON: 01/01/2018. DISCUSSION: Single portable upright view of the chest was obtained. Mild cardiomegaly is now present. The lungs remain hyperinflated. No focal consolidation, pleural fluid, or pneumothorax. No osseous abnormality. IMPRESSION: 1. Cardiomegaly without failure. Dictated by: Dictated on workstation # [id number] Dict: 01/09/18 1147 Trans: 01/09/18 1605 Interpreted by: THOMAS BAR MD Electronically signed by: THOMAS BAR MD 01/09/18 1605 Reviewed: Reviewed by Me Departure Impression Primary Impression: COPD (chronic obstructive pulmonary disease) Disposition: 01 HOME, SELF-CARE Condition: Stable Departure-Patient Inst. Decision time for Depature: 13:32 Referrals: [facility] (PCP) Primary Care Physician ALIZA CARTER (Family) Primary Care Physician Patient Instructions: Chronic Obstructive Pulmonary Disease (COPD), Including Emphysema Add. Discharge Instructions: Continue the increased dose of 40 mg of Lasix as previously prescribed. Continue the prednisone as previously prescribed. Follow-up with [facility] within 1 week for recheck. Return back to the emergency room for any worsening symptoms or concerns as needed. All discharge instructions reviewed with patient and/or family. Voiced understanding. AARON MCKEON Jan 09, 2018 13:19
[2018-01-09 14:30] VITALS: BP 135/95
== END 2018-01-09 14:32 | disposition home or self-care (01) ==
LOC: EDUNIT# 11:09 → ER 11:10
DX: J44.9 Chronic obstructive pulmonary disease, unspecified (principal); I50.9 Heart failure, unspecified; G47.30 Sleep apnea, unspecified; I10 Essential (primary) hypertension; G43.909 Migraine, unspecified, not intractable, without status migrainosus; E11.9 Type 2 diabetes mellitus without complications; F41.9 Anxiety disorder, unspecified; F31.9 Bipolar disorder, unspecified; F15.10 Other stimulant abuse, uncomplicated; F17.210 Nicotine dependence, cigarettes, uncomplicated; Z79.82 Long term (current) use of aspirin; Z79.51 Long term (current) use of inhaled steroids; Z79.84 Long term (current) use of oral hypoglycemic drugs; Z87.19 Personal history of other diseases of the digestive system; Z79.52 Long term (current) use of systemic steroids; Z91.5 Personal history of self-harm; Z80.1 Family history of malignant neoplasm of trachea, bronchus and lung; Z82.49 Family history of ischemic heart disease and other diseases of the circulatory system; Z86.14 Personal history of Methicillin resistant Staphylococcus aureus infection; Z88.8 Allergy status to other drugs, medicaments and biological substances
CPT/HCPCS: 36415; 36600; 71045; 80053; 82805; 83735; 83880; 85025; 93005; 94640; 96374; 96375; 96376

== ENCOUNTER 2018-01-19 14:13 | Emergency (ER) | payer OTHER ==
[~2018-01-19] VITALS: Ht 175.3 cm; Wt 93.9 kg
[2018-01-19] MEDS ORDERED: LIDOCAINE/EPI 2% 1:100,00 (XYLOCAINE) 20 ML VIAL ONE (14:28)
[2018-01-19] MEDS ORDERED: HYDROcodone/APAP 5 MG/325 MG (LORTAB) TAB PO ONE (14:45)
[2018-01-19] MEDS ORDERED: CLINDAMYCIN 300 MG/2ML (CLEOCIN) VIAL IM SCH (14:45)
[2018-01-19] MEDS ORDERED: LIDOCAINE/EPI 2% 1:100,00 (XYLOCAINE) 20 ML VIAL INJ ONE (14:45)
--- NOTE | 2018-01-19 14:49 | ED EENT ---
History of Present Illness General Stated Complaint: ABCESS TOOTH- DENTAL PAIN Source: patient Exam Limitations: no limitations History of Present Illness Date Seen by Provider: Jan 19, 2018 Time Seen by Provider: 14:44 Initial Comments To ER with right lower dental pain and swelling. This pain began a few days ago , the swelling began yesterday. No fevers or chills. She is scheduled to see her dentist at [facility] tomorrow at 8 AM. Timing/Duration: gradual Severity: moderate Location: dental Associated Symptoms: facial pain/swelling Allergies and Home Medications Allergies Coded Allergies: buspirone (Verified Allergy, Mild, 05/02/17) Made"legs Shaky" amitriptyline (Verified Allergy, Unknown, 05/02/17) " MAKES ME DO WEIRD THINGS LIKE WALK IN MY SLEEP AND HAVE HALLUCINATIONS." Home Medications Albuterol Sulfate 1 Puff Puff, 2 PUFF IH Q4H PRN for SHORTNESS OF BREATH, ( Reported) Aspirin 81 Mg Tablet.dr, 81 MG PO DAILY, (Reported) Fluticasone/Salmeterol 1 Each Blst.w.dev, 1 PUFF IH BID, (Reported) Furosemide 20 Mg Tablet, 20 MG PO DAILY, (Reported) Glimepiride 1 Mg Tablet, 1 MG PO DAILY PRN for WHEN TAKING PREDNISONE, (Reported ) Ipratropium/Albuterol Sulfate 3 Ml Ampul.neb, 3 ML IH QID PRN for SHORTNESS OF BREATH, (Reported) Levofloxacin 500 Mg Tablet, 500 MG PO DAILY Prescribed by: CONNOR JOHNSTON on 11/22/17 1118 Metoprolol Tartrate 25 Mg Tablet, 12.5 MG PO BID, (Reported) TAKES 1/2 (25MG) TABLET Ondansetron 4 Mg Tab.rapdis, 4 MG PO Q6H PRN for NAUSEA/VOMITING Prescribed by: ABIGAIL PASCUAL on 12/06/17 1434 Prednisone 10 Mg Tab, 10 MG PO DAILY 5 tabs (50mg) Day 1 4 tabs (40mg) Day 2 4 tabs (40mg) Day 3 3 tabs (30mg) Day 4 3 tabs (30mg) Day 5 2 tabs (20mg) Day 6 2 tabs (20mg) Day 7 1 tab (10Mg) Day 8 Prescribed by: CONNOR JOHNSTON on 11/22/17 1118 Prednisone 20 Mg Tab, 40 MG PO DAILY Prescribed by: ABIGAIL PASCUAL on 12/06/17 1434 Prednisone 5 Mg Tablet, 5 MG PO UD 12 PILLS DAY 1, THEN DECREASE BY 1 PILL A DAY UNTIL GONE Prescribed by: TIMOTHY HUGHES on 12/26/171947 Sacubitril/Valsartan 1 Each Tablet, 1 TAB PO BID, (Reported) Tiotropium [place] 1 Inh Aerp, 1 CAP IH DAILY, (Reported) Patient Home Medication List Home Medication List Reviewed: Yes Review of Systems Review of Systems Constitutional: see HPI; No chills Eyes: No Symptoms Reported Ears: No Symptoms Reported Nose: no symptoms reported Mouth: no symptoms reported Throat: no symptoms reported Respiratory: no symptoms reported Cardiovascular: no symptoms reported Musculoskeletal: no symptoms reported Past Lgdkrtm-Rgbwbk-Eqpiwl Hx Patient Social History Drug of Choice: +IV METH past hx Type Used: Cigarettes 2nd Hand Smoke Exposure: Yes Recent Foreign Travel: No Contact w/Someone Who Travel: No Recent Hopitalizations: Yes Immunizations Up To Date Tetanus Booster (TDap): Unknown Date of Pneumonia Vaccine: Dec 08, 2011 Date of Influenza Vaccine: Dec 31, 2016 Seasonal Allergies Seasonal Allergies: No Past Medical History Surgeries: No Respiratory: Yes (O2 AT 2-3L/NC) Sleep Apnea, COPD Currently Using CPAP: No Currently Using BIPAP: Yes Cardiac: Yes (HAD HEART CATH. 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 12.0oz. 90.958304se; 29.1 BMI Method:Stated General Appearance: WD/WN, no apparent distress Eyes: bilateral eye normal inspection, bilateral eye PERRL, bilateral eye EOMI Ears: bilateral ear auricle normal, bilateral ear canal normal Mouth/Throat: mandibular swelling, other (right-sided mandibular swelling. There is fluctuance to the buccal surface next to tooth #28/29. The area of swelling is about half ping-pong ball sized.) Neck: non-tender, full range of motion Respiratory: no respiratory distress, no accessory muscle use Neurologic/Psychiatric: alert, normal mood/affect Skin: normal color, warm/dry Progress/Results/Core Measures Results/Orders My Orders Orders - ELLEN ACE APRN Clindamycin Injection (Cleocin Injection (01/19/18 14:45) Hydrocodone/Apap 5/325 Tablet (Lortab 5 (01/19/18 14:45) Lidocaine/Epi 2% 1:100,000 (Xylocaine/Ep (01/19/18 14:45) Departure Communication (Admissions) I did do an inferior alveolar nerve block using 3 mL of 2% lidocaine with epinephrine. Over the area of maximum fluctuance and then made a small stab incision with 11 blade scalpel. Only bloody material was expressed. No purulence. I then used an 18-gauge 1/2 inch needle attached to a 10 cc through the incision I had already made to attempt to find any abscess cavity but was unable to aspirate any purulent material. Impression Primary Impression: Dental abscess Disposition: 01 HOME, SELF-CARE Condition: Stable Departure-Patient Inst. Decision time for Depature: 14:49 Referrals: [facility] [place] (PCP) Primary Care Physician ALIZA CARTER (Family) Primary Care Physician Patient Instructions: Tooth Abscess (DC) Add. Discharge Instructions: 1. Warm compresses to this area. Antibiotics as directed. Keep your appointment with dentist tomorrow morning. Return to ER for any concerns. Scripts Hydrocodone/Acetaminophen ([place] 5-325 Tablet) 1 Each Tablet 1 EACH PO Q6H PRN for PAIN-MODERATE MDD 10, #10 TAB Prov: ELLEN ACE APRN 01/19/18 Clindamycin HCl (Clindamycin HCl) 300 Mg Capsule 300 MG PO TID, #21 CAP Prov: ELLEN ACE APRN 01/19/18 Images Mouth/Nose 1 - Swelling, Tenderness ELLEN ACE APRN Jan 19, 2018 14:49
[2018-01-19] MEDS ORDERED: CLIN300C11 PO (14:50)
[2018-01-19] MEDS ORDERED: HYDR-4226 PO (14:50)
[2018-01-19] MEDS ORDERED: ONDANSETRON 8 MG (ZOFRAN) ORAL DISSOLVE TAB ONE (14:52)
[2018-01-19 15:06] VITALS: BP 142/90
--- OUTSIDE RECORDS SUMMARY | 2018-01-19 15:14 | XMS REPORT ---
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 Active 75212991 Problem Chronic bronchitis, unspecified chronic bronchitis type J42 Active 16465927 Problem COPD exacerbation J44.1 Active 136502809 Problem Examination of eyes and vision V72.0 Active 692763760 Problem Acute on chronic systolic congestive heart failure I50.23 Active 012780746 Problem Intractable cyclical vomiting with nausea G43.A1 Active 67134390 Problem Diabetes E11.9 Active 739352234 Problem Chronic obstructive pulmonary disease, unspecified COPD type J44.9 Active 07078543 Problem Anxiety F41.9 Active 14306992 Problem Migraine G43.909 Active 93681898 Problem TMJ (sprain of temporomandibular joint) S03.4XXA Active 14170801 Problem 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 Active Problem Tobacco abuse Z72.0 Active 95531667 Problem Bipolar disorder, unspecified F31.9 Active 19693141 Problem Bipolar disorder with depression F31.30 Active 30516445 Problem Chronic constipation K59.09 Active 032182943 Problem Generalized anxiety disorder F41.1 Active 27988210 Problem Memory loss R41.3 Active 26268383 Problem Other emphysema J43.8 Active 53486064 ALLERGIES Substance Reaction Event Type Date Status amitriptyline OD on medication, causes parasonias Non Drug Allergy Jan, Active Buspar 10 Mg Tablet made legs shaky Non Drug Allergy Jan, Active Benzodiazepines NARC ALERT Broke narc contract Non Drug Allergy Jan Active Narcotic NARC ALERT Broke Narc contract Non Drug Allergy Jan, Active ENCOUNTERS Encounter Location Date Diagnosis [facility] [id number] [place] [address] 59850- 7366 Feb, [facility] [id number] [place] [address] 64170- 7349 Jan, [facility] [id number] [place] [address] 48542- 5682 Jan, COPD exacerbation J44.1 and Acute on chronic systolic congestive heart failure I50.23 [facility] [id number] [place] [address] 57928- 5077 Dec, [facility] [id number] [place] [address] 80908- 7891 Dec, [facility] [id number] [place] [address] 92417- 8969 Nov, [facility] [id number] [place] [address] 12589- 8939 Nov, COPD with exacerbation J44.1 and Urinary tract infection without hematuria, site unspecified N39.0 [facility] [id number] [place] [address] 26232- 4107 Nov, Chronic obstructive pulmonary disease, unspecified COPD type J44.9 [facility] [id number] [place] [address] 42783- 5969 Oct, [facility] [id number] [place] [address] 87779- 0484 Oct, [facility] [id number] [place] [address] 38383- 3188 Oct, [facility] [id number] [place] [address] 56531- 4766 Oct, [facility] [id number] [place] [address] 60295- 9313 Oct, Thrush B37.0 [facility] [address] [address] 2268 Sep, COPD with exacerbation J44.1 and Anxiety F41.9 [facility] [address] [address] 8951 Sep, [facility] [address] [address]- 3309 Sep, [facility] [address] [address]- 6362 Sep, [facility] [id number] [address] 4864 Sep, Acute congestive heart failure, unspecified heart failure type I50.9 and Anxiety disorder, unspecified F41.9 [facility] [address] [address] 2781 Sep, Heart failure, unspecified HF chronicity, unspecified heart failure type I50.9 [facility] [address] [address]- 4180 Sep, [facility] [address] [address] 8395 Aug, Chronic obstructive pulmonary disease with acute exacerbation J44.1 [facility] [address] [address]- 9325 Aug, [facility] [address] [address]- 7905 Aug, [facility] [address] [place] [address]- 1686 July, [facility] [address], [place] [address]- 5132 July, [facility] [id number], [place] [address]- 5287 July, Diabetes E11.9 and Chronic obstructive pulmonary disease with acute exacerbation J44.1 [facility] [address], [place] [address]- 9824 Jun, Chronic obstructive pulmonary disease with acute exacerbation J44.1 ; Diabetes E11.9 and Tobacco abuse Z72.0 [facility] [id number] [address]- 8940 Jun, [facility] [id number] [place] [address] 92761- 8933 Jun, [facility] [id number] [place] [address] 67795- 0934 May, [facility] [id number] [place] [address] 12428- 3644 May, [facility] [id number] [place] [address] 45323 -5844 17 May, 2017 [facility] [id number] [place] [address] 06400- 4511 16 May, 2017 [facility] [id number] [place] [address] 26474- 0805 15 May, 2017 [facility] [id number] [place] [address] 42925- 4072 14 May, 2017 Diarrhea, unspecified type R19.7 and Intractable cyclical vomiting with nausea G43.A1 [facility] [id number] [place] [address] 30215- 1640 May, [facility] [id number] [place] [address] 78891- 8187 05 May, 2017 [facility] [id number] [place] [address] 06548- 5068 Apr, COPD exacerbation J44.1 ; Esophageal candidiasis B37.81 ; Other acute gastritis with hemorrhage K29.01 and Acute posthemorrhagic anemia D62 [facility] [address], [place] [address]- 3354 Apr, Viral illness B34.9 and COPD exacerbation J44.1 [facility] [id number] [place] [address] 58960 -4450 Apr, Shortness of breath R06.02 and Pneumonia of both lower lobes due to infectious organism J18.9 [facility] [id number] [place] [address] 28993 -4774 Mar, COPD with acute exacerbation J44.1 [facility] [id number] [place] [address] 80832- 4864 Mar, Chronic obstructive pulmonary disease with acute exacerbation J44.1 and Diabetes E11.9 [place] [facility] [address] 86300- 0389 Mar, [facility] [id number] [place] [address] 60955- 8052 Mar, [facility] [id number] [place] [address] 71456 -8711 Mar, COPD exacerbation J44.1 [facility] [id number] [place] [address] 57083- 8822 Mar, [facility] [id number] [place] [address] 86060- 2232 Mar, Migraine G43.909 ; Hypokalemia E87.6 and Type 2 diabetes mellitus without complications E11.9 [facility] [id number] [place] [address] 91296- 0190 Feb, [facility] [id number] [place] [address] 91934- 4981 Feb, [facility] [id number] [place] [address] 69613- 7923 Feb, Methamphetamine use disorder, moderate, 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 ; Major depressive disorder, recurrent, moderate F33.1 ; Anxiety disorder, unspecified F41.9 and Tobacco abuse Z72.0 [facility] [id number] [place] [address] 36563- 8103 30 Jan, 2017 Major depressive disorder, recurrent, moderate F33.1 [facility] [id number] [place] [address] 00357- 1049 16 Jan, 2017 [facility] [id number] [place] [address] 04700- 6265 14 Jan, 2017 [facility] [id number] [place] [address] 29503- 7365 Jan, Major depressive disorder, recurrent, moderate F33.1 [facility] [id number] [place] [address] 39727- 5093 Jan, Major depressive disorder, recurrent, moderate F33.1 ; Anxiety disorder, unspecified F41.9 ; Methamphetamine use disorder, moderate, 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 and Tobacco abuse Z72.0 [facility] [id number] [place] [address] 83691- 1090 Jan, [facility] [id number] [place] [address] 59086- 4121 Jan, Chronic obstructive pulmonary disease with acute exacerbation J44.1 and Diabetes E11.9 [facility] [id number] [place] [address] 24678- 9059 Jan, [facility] [id number] [place] [address] 84929- 5555 Jan, [facility] [id number] [place] [address] 61631- 0659 Dec, Acute respiratory failure with hypoxia J96.01 ; Chronic bronchitis, unspecified chronic bronchitis type J42 and Tobacco use Z72.0 [facility] [address] 41710- 1993 Dec, [facility] [id number] [place] [address] [id number] Nov, Dental caries K02.9 and Dental examination Z01.20 [facility] [id number] [place] [address] 59829- 3657 Nov, Major depressive disorder, recurrent, moderate F33.1 ; Anxiety disorder, unspecified F41.9 and 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 [facility] [address] [address] Oct, Dental examination Z01.20 [facility] [id number] [place] [address] 56135- 9054 Oct, [facility] [id number] [place] [address] 55203- 1387 Oct, Diabetes E11.9 and Thrush B37.0 [facility] [id number] [place] [address] 26495- 0998 Oct, [facility] [id number] [place] [address] 69296- 0221 Oct, [facility] [id number] [place] [address] 60978- 7008 Oct, [facility] [id number] [place] [address] 81361- 5838 Sep, Major depressive disorder, recurrent, moderate F33.1 ; Anxiety disorder, unspecified F41.9 and Bipolar disorder, unspecified F31.9 [facility] [id number] [place] [address] 24312- 4875 Sep, Acute exacerbation of chronic obstructive pulmonary disease (COPD) J44.1 and Migraine G43.909 [facility] [address], [place] [address]- 7537 Sep, [facility] [id number] [place] [address] [id number] Sep, [facility] [id number] [place] [address] 17484- 5538 Sep, Acute exacerbation of chronic obstructive pulmonary disease (COPD) J44.1 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1 ; Anxiety disorder, unspecified F41.9 and Other stimulant dependence with unspecified stimulant-induced disorder F15.29 [facility] [id number] [place] [address] 96975- 8848 July, [facility] [id number] [place] [address] 97450- 6593 July, [facility] [id number] [place] [address] 72578- 2357 July, [facility] [id number] [place] [address] 53862- 2316 July, Diabetes E11.9 [facility] [id number] [place] [address] 08974- 1172 Jun, Major depressive disorder, recurrent, moderate F33.1 [facility] [id number] [place] [address] 88268- 2719 Jun, Major depressive disorder, recurrent, moderate F33.1 ; Other stimulant dependence with unspecified stimulant-induced disorder F15.29 ; Generalized anxiety disorder F41.1 and Bipolar disorder, unspecified F31.9 [facility] [id number] [place] [address] 45956- 9608 Jun, Diabetes E11.9 ; Migraine G43.909 ; Thrush B37.0 and Wheezing R06.2 [facility] [address] [id number] Jun, Dental examination Z01.20 [facility] [address] 132193- 0792 Jun, [facility] [address] 83968- 4783 Jun, Major depressive disorder, recurrent, moderate F33.1 ; Anxiety disorder, unspecified F41.9 and 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 [facility] [id number] [place] [address] 16342- 7141 Jun, [facility] [id number] [place] [address] 73946- 7625 Jun, Wheezing R06.2 [facility] [address] [id number] Jun, Dental caries K02.9 [facility] [address] [phone]- 2133 Jun, Major depressive disorder, recurrent, moderate F33.1 ; Anxiety disorder, unspecified F41.9 and 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 [facility] [address] 13451- 2498 Jun, RLQ abdominal pain R10.31 ; Diabetes E11.9 ; Obesity, unspecified obesity severity, unspecified obesity type E66.9 ; Wheezing R06.2 and Abnormal urinalysis R82.90 [facility] [address] [place] [address] 77656- 0577 May, [facility] [id number] [place] [address] 49489- 5785 May, Well woman exam Z01.419 ; Breast cancer screening Z12.39 ; Cervical cancer screening Z12.4 ; Urinary frequency R35.0 ; Edema, unspecified type R60.9 and Chronic constipation K59.09 [facility] [id number] [place] [address] 12069- 7135 08 May, 2016 Major depressive disorder, recurrent, moderate F33.1 ; Anxiety disorder, unspecified F41.9 and Other 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 [facility] [address] [place] [address] [id number] May, Dental examination Z01.20 [facility] [id number] [place] [address] 54585- 2208 May, [facility] [id number] [place] [address] 26369- 0832 May, [facility] [id number] [place] [address] 71295- 0944 May, Chronic constipation K59.09 [facility] [address] [place] [address] 31951- 4906 Apr, [facility] [address] [place] [address] 54498- 8333 Apr, Major depressive disorder, recurrent, moderate F33.1 ; Anxiety disorder, unspecified F41.9 and 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 [facility] [address] [place] [address] 48166- 4272 Apr, [facility] [address] [place] [address] 26816- 2059 Mar, Major depressive disorder, recurrent, moderate F33.1 [facility] [address] [place] [address] 24117- 2432 Mar, Major depressive disorder, recurrent, moderate F33.1 ; Generalized anxiety disorder F41.1 and Bipolar I disorder, most recent episode depressed with anxious distress F31.30 [facility] [id number] [place] [address] 14658- 7233 Mar, Diabetes E11.9 ; Non morbid obesity due to excess calories E66.09 ; Breast cancer screening Z12.39 and Encounter for immunization Z23 [facility] [id number] [place] [address] 06664- 2137 Mar, Major depressive disorder, recurrent, moderate F33.1 ; Anxiety disorder, unspecified F41.9 and Other stimulant dependence with unspecified stimulant-induced disorder F15.29 [facility] [id number] [place] [address] 03795- 7070 Mar, [facility] [id number] [place] [address] 22122- 3633 Feb, Major depressive disorder, recurrent, moderate F33.1 ; Anxiety disorder, unspecified F41.9 and Other stimulant dependence with unspecified stimulant-induced disorder F15.29 [facility] [id number] [place] [address] 54335- 5477 Feb, [facility] [id number] [place] [address] 03636- 1091 Feb, [facility] [id number] [place] [address] 36817- 0507 Jan, Major depressive disorder, recurrent, moderate F33.1 ; Generalized anxiety disorder F41.1 and Bipolar disorder, current episode depressed, severe, without psychotic features F31.4 [facility] [id number] [place] [address] 60264- 3377 Jan, Major depressive disorder, recurrent, moderate F33.1 ; Anxiety disorder, unspecified F41.9 and 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 [facility] [address], [place] [address]- 2614 Jan, Bronchitis J40 [facility] [address], [place] [address]- 6314 Jan, [facility] [id number], [place] [address]- 9202 Jan, [facility] [address], [place] [address]- 2213 Jan, Elbow injury, right, initial encounter S59.901A ; Multiple contusions T14.8 and Cervical strain, acute, initial encounter S16.1XXA [facility] [address] [place] [address] 42258- 7611 Dec, Major depressive disorder, recurrent, moderate F33.1 ; Generalized anxiety disorder F41.1 and Bipolar disorder with depression F31.30 [facility] [address], [place] [address]- 6183 Dec, [facility] [address], [place] [address]- 6581 Dec, [facility] [address], [place] [address]- 3342 Dec, [facility] [address], [place] [address]- 6624 Dec, [facility] [id number], [place] [address]- 4234 Dec, Yeast infection B37.9 [facility] [id number], [place] [address]- 3680 Dec, Pneumonia of both lungs due to methicillin resistant Staphylococcus aureus (MRSA), unspecified part of lung J15.212 and Benzodiazepine overdose, accidental or unintentional, subsequent encounter T42.4X1D [facility] [id number], [place] [address]- 2955 Dec, [facility] [id number] [place] [address] 73198- 1455 Dec, [facility] [id number] [place] [address] [address]282 Dec, Knee pain, left M25.562 and Edema, unspecified type R60.9 [facility] [id number] [place] [address] 34470- 6764 Dec, [facility] [id number]- 3562 Dec, Anxiety disorder, unspecified F41.9 and Bipolar disorder, unspecified F31.9 [facility] [address] 663695- 4567 Nov, Major depressive disorder, recurrent, moderate F33.1 ; Anxiety disorder, unspecified F41.9 and Other stimulant dependence with unspecified 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 [facility] [id number] [place] [address] 53240- 0996 Nov, [facility] [id number] [place] [address] 81413- 9083 Nov, Migraine without aura and without status migrainosus, not intractable G43.009 [facility] [id number] [place] [address] 14854- 0977 Nov, Migraine G43.909 [facility] [id number] [place] [address] 36466- 1409 Nov, [facility] [id number] [place] [address] 39092- 7586 Nov, Major depressive disorder, recurrent, moderate F33.1 ; Anxiety disorder, unspecified F41.9 and 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 [facility] [id number] [place] [address] 08945- 1056 Oct, Chronic constipation K59.09 and Obesity, unspecified obesity severity, unspecified obesity type E66.9 [facility] [address], [place] [address]- 0053 Oct, Obesity, unspecified obesity severity, unspecified obesity type E66.9 ; Chronic constipation K59.09 and Anxiety disorder, unspecified F41.9 [facility] [address] [address]- 3811 Oct, [facility] [id number] [place] [address] 11996- 8904 Sep, Diabetes E11.9 ; Edema, unspecified type R60.9 ; Varicose vein of leg I83.90 and Obesity, unspecified obesity severity, unspecified obesity type E66.9 [facility] [id number] [place] [address] 10758- 9717 Sep, Edema, unspecified type R60.9 ; Diabetes E11.9 and Knee pain , left M25.562 [facility] [id number] [place] [address] 02703- 2600 Sep, [facility] [id number] [place] [address] 77449- 4074 Sep, [facility] [id number] [place] [address] 85819- 9020 Sep, Major depressive disorder, recurrent, moderate F33.1 ; Generalized anxiety disorder F41.1 and Bipolar disorder, unspecified F31.9 [facility] [address] [place] [address] 59955- 0411 Aug, Chondromalacia of left knee M94.262 [facility] [address] [place] [address] 27812- 8798 Aug, Major depressive disorder, recurrent, moderate F33.1 ; Anxiety disorder, unspecified F41.9 and 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 [facility] [address] [place] [address] [id number] Aug, [place] [address] [place] [id number] [place] [address] [id number]- 0830 Aug, Osteoarthritis of left knee M17.9 [facility] [id number] [place] [address] [id number]- 2450 Aug, [facility] [id number] [place] [address] [id number]- 2762 July, Major depressive disorder, recurrent, moderate F33.1 ; Anxiety disorder, unspecified F41.9 and 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 [facility] [id number] [place] [address] 76126- 9259 July, [facility] [id number] [place] [address] 37027- 8985 July, Chronic constipation K59.09 [facility] [id number] [place] [address] 42751- 6154 Jun, [facility] [id number] [place] [address] 37224- 3836 Jun, [facility] [id number] [place] [address] 20666- 4724 14 Jun, 2015 Osteoarthritis of left knee M17.9 [facility] [id number] [place] [address] 10966- 5490 Jun, [facility] [id number] [place] [address] 24719- 5231 Jun, Generalized anxiety disorder F41.1 ; Bipolar disorder, unspecified F31.9 and Major depressive disorder, recurrent, moderate F33.1 [facility] [id number] [place] [address] 58454- 7681 07 Jun, 2015 Migraine G43.909 [facility] [id number] [place] [address] 76069- 0714 07 Jun, 2015 Left knee pain M25.562 ; Chronic constipation K59.09 ; Dry mouth R68.2 ; Yeast vaginitis B37.3 and Memory loss R41.3 [address] [facility] [address], [place] [address] 1290 Jun, [facility] [id number] [place] [address] 19253- 1461 May, [facility] [id number] [place] [address] 15305- 6549 May, [address] [facility] [id number] [place] [address] 47402- 7201 May, [address] [facility] [id number] [place] [address] 44835- 4518 May, [address] [facility] [id number] [place] [address] 31509- 1946 May, Acute bronchitis with COPD J44.0 ; Knee pain, left M25.562 and Encounter for tobacco use cessation counseling Z71.6 [facility] [id number] [place] [address] 28935- 5653 May, [facility] [id number] [place] [address] 12307- 8610 Apr, Diabetes E11.9 ; TMJ (sprain of temporomandibular joint) S03.4XXA ; Tobacco abuse Z72.0 ; Migraine G43.909 and Anxiety F41.9 [facility] [id number] [place] [address] 62605- 8070 Apr, Generalized anxiety disorder F41.1 and Bipolar disorder, unspecified F31.9 [facility] [id number] [place] [address] 30225- 5260 Apr, Major depressive disorder, recurrent, moderate F33.1 ; Anxiety disorder, unspecified F41.9 and 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 [facility] [id number] [place] [address] 15578- 0828 Apr, [facility] [id number] [place] [address] 25614- 9989 Mar, [facility] [id number] [place] [address] 04502- 3388 Feb, [facility] [id number] [place] [address] 66770- 1973 Feb, Major depressive disorder, recurrent, moderate F33.1 ; Anxiety disorder, unspecified F41.9 and 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 [facility] [id number] [place] [address] 00368- 7506 Feb, [facility] [id number] [place] [address] 38735- 6769 Feb, Generalized anxiety disorder F41.1 and Bipolar disorder, unspecified F31.9 [address] [id number] [place] [address] 91221- 0337 30 Jan, 2015 [facility] [id number] [place] [address] 05895- 7765 Jan, [facility] [id number] [place] [address] 05976- 9762 Jan, Bipolar disorder, unspecified F31.9 and Generalized anxiety disorder F41.1 [address] [facility] [id number] [place] [address] 58166- 4450 14 Dec, 2014 [facility] [id number] [place] [address] 21043- 6340 14 Dec, 2014 Bipolar disorder, unspecified F31.9 and Generalized anxiety disorder F41.1 [facility] [id number] [place] [address] 00132- 1529 13 Dec, 2014 Generalized anxiety disorder F41.1 and Major depressive disorder, recurrent, moderate F33.1 [facility] [id number] [place] [address] 69702- 8228 24 Oct, 2014 Headache 784.0 ; Cough 786.2 ; Vomiting and diarrhea 787.03 and Dysuria 788.1 [address] [facility] [address], [place] [address]- 1005 Aug, [facility] [id number] [place] [address] 93671- 9351 Aug, Headache 784.0 and Shortness of breath 786.05 [facility] [id number] [place] [address]- 4089 Aug, [facility] [id number] [place] [address] 05297- 8343 Aug, Migraine 346.90 [facility] [id number] [place] [address], [place] [address]- 6262 Jun, [facility] [id number] [place] [address] 72913- 4049 Jun, [facility] [id number] [place] [address] 27549- 1860 May, [facility] [id number] [address]- 4454 May, [facility] [address], [place] [address]- 9762 May, [facility] [address], [place] [address]- 4811 May, [facility] [id number], [place] [address]- 0035 May, [facility] [address], [place] [address]- 1252 May, [facility] [address], [place] [address]- 3918 Apr, [facility] [address] 0916 Apr, [facility] [address] 6089 Apr, [facility] [place] [facility] [address] [id number] [place] [address]- 4583 04 Apr, 2014 [facility] [place] [facility] [address] [id number] [place] [address]- 7750 Apr, [facility] [place] [facility] [address] [id number] [place] [address]- 9924 Mar, [facility] [place] [facility] [address] [id number] [place] [address]- 1810 Mar, [facility] [place] [facility] [address] [id number] [place] [address]- 4169 Mar, [facility] [place] [facility] [address] [id number] [place] [address]- 4003 Mar, [facility] [place] [facility] [address] [id number] [place] [address]- 8872 Feb, [facility] [place] [facility] [address] [id number] [place] [address]- 2135 Feb, [facility] [place] [facility] [address] [id number] [place] [address]- 0801 Feb, [facility] [place] [facility] [address] [id number] [place] [address]- 0340 Feb, [facility] [place] [facility] [address] [id number] [place] [address]- 4996 16 Feb, 2014 [facility] [place] [facility] [address] [id number] [place] [address]- 0100 16 Feb, 2014 [facility] [place] [facility] [address] [id number] [place] [address]- 0847 Feb, [facility] [place] [facility] [address] [id number] [place] [address]- 7068 Feb, [facility] [place] [facility] [address] [id number] [place] [address]- 1528 08 Feb, 2014 [facility] [place] [facility] [address] [id number] [place] [address]- 3886 Feb, [facility] [place] [facility] [address] [id number] [place] 1794 Feb, [facility] [place] [facility] [address] [id number] [place] [address]- 0649 Feb, [facility] [place] [facility] [address] [id number] [place] [address]- 1024 Jan, [facility] [place] [facility] [address] [id number] [place] [address]- 6527 Jan, [facility] [place] [facility] [address] [id number] [place] [address]- 0295 Dec, [facility] [place] [facility] [address] [id number] [place] [address]- 2063 Dec, [facility] [place] [facility] [address] [id number] [place] [address]- 9024 Dec, [facility] [place] [facility] [address] [id number] [place] [address]- 6465 Dec, [facility] [place] [facility] [address] [id number] [place] [address]- 2227 Dec, [facility] [place] [facility] [address] [id number] [place] [address]- 8620 Dec, [facility] [place] [facility] [address] [id number] [place] [address]- 3643 Sep, [facility] [place] [facility] [address] [id number] [place] [address]- 3439 Sep, [facility] [place] [facility] [address] [id number] [place] [address]- 5643 Sep, [facility] [place] [facility] [address] [id number] [place] [address]- 3520 Sep, [facility] [place] [facility] [address] [id number] [place] [address]- 2882 Sep, [facility] [place] [facility] [address] [id number] [place] [address]- 8959 14 Sep, 2013 [facility] [place] [facility] [address] [id number] [place] [address]- 0719 07 Sep, 2013 [facility] [place] [facility] [address] [id number] [place] [address]- 6778 Sep, 2013 [facility] [place] [facility] [address] [id number] [place] [address]- 0069 Sep, 2013 [facility] [place] [facility] [address] [id number] [place] [address]- 5940 Sep, [facility] [place] [facility] [address] [id number] [place] [address]- 8140 24 Aug, 2013 [facility] [place] [facility] [address] [id number] [place] [address]- 9255 Aug, [facility] [place] [facility] [address] [id number] [place] [address]- 8134 Aug, [facility] [place] [facility] [address] [id number] [place] [address]- 6457 Aug, [facility] [place] [facility] [address] [id number] [place] [address]- 3529 Aug, [facility] [place] [facility] [address] [id number] [place] [address]- 2159 Aug, [facility] [place] [facility] [address] [id number] [place] [address]- 8716 Aug, [facility] [place] [facility] [address] [id number] [place] [address]- 1479 Aug, [facility] [place] [facility] [address] [id number] [place] [address]- 2874 Aug, [facility] [place] [facility] [address] [id number] [place] [address]- 3348 Aug, [facility] [place] [facility] [address] [id number] [place] [address]- 4851 Aug, [facility] [place] [facility] [address] [id number] [place] [address]- 6120 Aug, [facility] [place] [facility] [address] [id number] [place] [address]- 8368 Aug, [facility] [place] [facility] [address] [id number] [place] [address]- 4842 July, [facility] [place] [facility] [address] [id number] [place] [address]- 4819 July, [facility] [place] [facility] [address] [id number] [place] [address]- 5431 July, [facility] [place] [facility] [address] [id number] [place] [address]- 8538 July, [facility] [place] [facility] [address] [id number] [place] [address]- 8346 July, [facility] [place] [facility] [address] [id number] [place] [address]- 0871 July, [facility] [place] [facility] [address] [id number] [place] [address]- 4878 July, [facility] [place] [facility] [address] [id number] [place] [address]- 1989 Jun, [facility] [place] [facility] [address] [id number] [place] [address]- 5700 Jun, [facility] [place] [facility] [address] [id number] [place] [address]- 6008 Jun, [facility] [place] [facility] [address] [id number] [place] [address]- 8233 Jun, [facility] [place] [facility] [address] [id number] [place] [address]- 6820 Jun, [facility] [place] [facility] [address] [id number] [place] 4555 Jun, [facility] [place] [facility] [address] [id number] [address]- 9548 08 Jun, 2013 [facility] [place] [facility] [address] [id number] [place] [address]- 7499 17 May, 2013 [facility] [place] [facility] [address] [id number] [place]- 1601 17 May, 2013 [facility] [place] [facility] [address] [id number] [place] [address]- 6797 14 May, 2013 [facility] [place] [facility] [address] [id number] [place] [address]- 9298 14 May, 2013 [facility] [place] [facility] [address] [id number] [place] [address]- 0997 13 May, 2013 [facility] [place] [facility] [address] [id number] [place] [address]- 5435 13 May, 2013 [facility] [place] [facility] [address] [facility] [id number] [place] [address]- 1542 10 May, 2013 [facility] [place] [facility] [address] [facility] [id number] [place] [address]- 1472 10 May, 2013 [facility] [place] [facility] [address] [facility] [id number] [place] [address]- 7580 07 May, 2013 [facility] [place] [facility] [address] [facility] [id number] [place] [address]- 9707 26 Apr, 2013 [facility] [place] [facility] [address] [id number] [place] [address]- 9215 26 Apr, 2013 [facility] [place] [facility] [address] [id number] [place] [address]- 1609 18 Apr, 2013 [facility] [place] [facility] [address] [id number] [place] [address]- 7192 15 Apr, 2013 [facility] [place] [facility] [address] [id number] [place] [address]- 6559 15 Apr, 2013 [facility] [place] [facility] [address] [facility] [id number], [place] [address]- 9042 11 Apr, 2013 [facility] [place] [facility] [address] [id number] [place] [address]- 6329 Apr, [facility] [place] [facility] [address] [id number] [place] [address]- 6023 Apr, [facility] [place] [facility] [address] [id number] [place] [address]- 6775 Apr, [facility] [place] [facility] [address] [id number] [place] [address]- 2364 Apr, [facility] [place] [facility] [address] [id number] [place] [address]- 9188 Mar, [facility] [place] [facility] [address] [id number] [place] [address]- 9399 Mar, [facility] [place] [facility] [address] [id number] [place] [address]- 2630 Mar, [facility] [place] [facility] [address] [id number] [place] [address]- 7594 Mar, [facility] [place] [facility] [address] [id number] [place] [address]- 7955 Mar, [facility] [place] [facility] [address] [id number] [place] [address]- 6813 Mar, [facility] [place] [facility] [address] [id number] [place] [address]- 1087 Mar, [facility] [place] [facility] [address] [id number], [place] [address]- 9500 Mar, [facility] [place] [facility] [address] [id number] [place] [address]- 4176 Feb, [facility] [place] [facility] [address] [id number] [place] [address]- 9013 Feb, [facility] [place] [facility] [address] [id number] [place] [address]- 3414 Jan, [facility] [place] [facility] [address] [id number], [place] [address]- 9799 18 Jan, 2013 [facility] [place] [facility] [address] [id number] [place] [address]- 2902 15 Jan, 2013 [facility] [place] [facility] [address] [id number], [place] [address]- 9446 15 Jan, 2013 [facility] [place] [facility] [address] [facility] [id number] [place] [address]- 9273 Jan, [facility] [place] [facility] [address] [id number], [place] [address]- 9189 Jan, [facility] [place] [facility] [address] [facility] [id number] [place] [address]- 3841 Jan, [facility] [place] [facility] [address] [id number] [place] [address]- 1580 Jan, [facility] [place] [facility] [address] [id number], [place] [address]- 5721 Dec, [facility] [place] [facility] [address] [id number], [place] [address]- 9028 Dec, [facility] [place] [facility] [address] [facility] [id number], [place] [address]- 4629 10 Dec, 2012 [facility] [place] [facility] [address] [facility] [id number], [place] [address]- 5349 20 Nov, 2012 [facility] [place] [facility] [address] [id number], [place] [address]- 7980 13 Nov, 2012 [facility] [place] [facility] [address] [id number], [place] [address]- 2384 12 Sep, 2012 [facility] [place] [facility] [address] [id number], [place] [address]- 5933 09 Sep, 2012 [facility] [place] [facility] [address] [facility] [id number], [place] [address]- 2888 06 Sep, 2012 [facility] [place] [facility] [address] [facility] [id number], [place] [address]- 0120 06 Sep, 2012 [facility] [place] [facility] [address] [id number] [place] [address]- 0872 Oct, [facility] [place] [facility] [address] [id number] [place] 9277 Oct, [facility] [place] [facility] [address] [id number] [place] [address]- 0212 Sep, [facility] [place] [facility] [address] [id number] [place] [address]- 8785 Sep, [facility] [place] [facility] [address] [id number] [place] [address]- 7282 Sep, [facility] [place] [facility] [address] [id number] [place] [address]- 0171 Sep, [facility] [place] [facility] [address] [id number] [place] [address]- 3481 Sep, [facility] [place] [facility] [address] [id number] [place] [address]- 4608 Sep, [facility] [place] [facility] [address] [id number] [place] [address]- 7671 Sep, [facility] [place] [facility] [address] [id number] [place] [address]- 2227 Aug, [facility] [place] [facility] [address] [id number] [place] [address]- 8147 Aug, [facility] [place] [facility] [address] [id number] [place] [address]- 6448 Aug, [facility] [place] [facility] [address] [id number] [place] [address]- 5939 Aug, [facility] [place] [facility] [address] [id number] [place] [address]- 3073 Aug, [facility] [place] [facility] [address] [id number] [place] [address]- 7459 Aug, [facility] [place] [facility] [address] [id number] [place] [address]- 2286 July, [facility] [address] [id number] [place] [address]- 9986 July, [facility] [address] [id number] [place] [address]- 5192 July, [facility] [address] [id number] [place] [address]- 0445 July, [facility] [address] [id number] [place] [address]- 1142 July, [facility] [address] [id number] [place] [address]- 8249 July, [facility] [address] [id number] [place] [address]- 6407 Jun, [facility] [address] [id number] [place] [address]- 5818 Jun, [facility] [address] [id number] [place] [address] Jun, [facility] [address] [id number] [place] [address] Jun, [facility] [address] [id number] [place] [address] Jun, [facility] [address] [id number], [place] [address] Jun, [facility] [place] [facility] [address] [id number], [place] [address] Jun, [facility] [place] [facility] [address] [id number] [place] [address] May, [facility] [place] [facility] [address] [id number], [place] [address] May, [facility] [place] [facility] [address] [id number] [place] [address] Apr, [facility] [address] [id number] [place] [address] 19 Apr, 2012 [facility] [address] [id number] [place] [address] Apr, 2012 [facility] [place] [facility] [address] [id number] [place] [address] 18 Apr, 2012 [facility] [place] [facility] [address] [id number] [place] [address] Apr, 2012 [facility] [place] [facility] [address] [id number] [place] [address] 08 Apr, 2012 [facility] [place] [facility] [address] [id number] [place] [address] Apr, [facility] [place] [facility] [address] [id number] [place] [address] 07 Apr, 2012 [facility] [place] [facility] [address] [id number] [place] [address] Apr, [facility] [place] [facility] [address] [id number] [place] [address] Apr, [facility] [place] [facility] [address] [facility] [id number] [place] [address] Apr, [facility] [place] [facility] [address] [id number] [place] [address] Mar, [facility] [place] [facility] [address] [id number] [place] [address] Mar, [facility] [place] [facility] [address] [id number] [place] [address] Mar, [facility] [place] [facility] [address] [id number] [place] [address] Mar, [facility] [place] [facility] [address] [id number] [place] [address] Mar, [facility] [place] [facility] [address] [id number] [place] [address] 36[address] 15 Mar, 2012 [facility] [address] [id number] [place] [address] 27[address] 15 Mar, 2012 [facility] [place] [facility] [address] [id number] [place] [address] 1607 15 Mar, 2012 [facility] [address] [id number] [place] [address] Mar, [facility] [place] [facility] [address] [id number] [place] [address] Mar, [facility] [address] [id number] [place] [address] Mar, [facility] [address] [id number] [place] [address] 264[address] Mar, [facility] [address] [id number] [place] [address] Mar, [facility] [place] [facility] [address] [id number] [place] [address] 47[address] Feb, [facility] [address] [id number] [place] [address] Feb, [facility] [place] [facility] [address] [id number] [place] [address] 18 Feb, 2012 [facility] [place] [facility] [address] [id number] [place] [address] 18 Feb, 2012 [facility] [place] [facility] [address] [id number] [place] [address] 11 Feb, 2012 [facility] [place] [facility] [address] [id number] [place] [address] 11 Feb, 2012 [facility] [place] [facility] [address] [id number] [place] [address] 10 Feb, 2012 [facility] [place] [facility] [address] [id number] [place] [address] 10 Feb, 2012 [facility] [place] [facility] [address] [id number] [place] [address] Feb, [facility] [address] [id number] [place] [address] Feb, [facility] [place] [facility] [address] [id number] [place] [address]- [address] Feb, [facility] [address] [id number] [place] [address]- 6[address] Feb, [facility] [place] [facility] [address] [id number] [place] [address]- 30[address] Feb, [facility] [address] [id number] [place] [address]- [address] Feb, [facility] [place] [facility] [address] [id number] [place] [address]- 18[address] Feb, [facility] [place] [facility] [address] [facility] [id number] [place] [address]- [address] Jan, [facility] [place] [facility] [address] [id number] [place] [address]- 6[address] Jan, [facility] [place] [facility] [address] [facility] [id number] [place] [address]- 97[address] Jan, [facility] [place] [facility] [address] [facility] [id number] [place] [address]- [address] Jan, [facility] [place] [facility] [address] [facility] [id number] [place] [address]- [address] Dec, [facility] [place] [facility] [address] [id number] [place] [address]- [address] Dec, [facility] [place] [facility] [address] [id number] [place] [address]- 2006 Dec, [facility] [place] [facility] [address] [facility] [id number] [place] [address] Dec, [facility] [place] [facility] [address] [facility] [id number] [place] [address]- 78[address] Dec, [facility] [place] [facility] [address] [id number] [place] [address]- 3811 25 Dec, 2011 [facility] [place] [facility] [address] [id number] [place] [address]- [address]396 16 Dec, 2011 [facility] [place] [facility] [address] [id number] [place] [address]- 3408 16 Dec, 2011 [facility] [place] [facility] [address] [id number] [place] [address]- [address] 07 Dec, 2011 [facility] [place] [facility] [address] [id number] [place] [address]- 1994 04 Dec, 2011 [facility] [place] [facility] [address] [id number] [place] [address]- 264[address] 03 Dec, 2011 [facility] [place] [facility] [address] [id number] [place] [address]- 2837 25 Sep2011 [facility] [place] [facility] [address] [id number], [place] [address] 24 Sep, 2011 [facility] [place] [facility] [address] [id number] [place] [address] 20 Sep2011 [facility] [place] [facility] [address] [facility] [id number], [place] [address] 19 Sep2011 [facility] [place] [facility] [address] [facility] [id number], [place] [address] 17 Sep, 2011 [facility] [place] [facility] [address] [id number], [place] [address] 16 Sep, 2011 [facility] [place] [facility] [address] [id number][place] [address] 14 Sep, 2011 [facility] [place] [facility] [address] [id number], [place] [address] 13 Sep, 2011 [facility] [place] [facility] [address] [facility] [id number], [place] [address] 12 Sep, 2011 [facility] [place] [facility] [address] [id number], [place] [address] 07 Nov, 2011 [facility] [place] [facility] [address] [id number] [place] [address] 06 Nov, 2011 [facility] [place] [facility] [address] [id number] [place] [address] 06 Nov, 2011 [facility] [place] [facility] [address] [id number] [place] [address] 05 Nov, 2011 [facility] [place] [facility] [address] [id number] [place] [address] Oct, [facility] [place] [facility] [address] [id number] [place] [address] 9470 Oct, [facility] [place] [facility] [address] [id number] [place] [address] 9[address] Oct, [facility] [place] [facility] [address] [id number] [place] [address] 6[address] Oct, [facility] [place] [facility] [address] [id number] [place] [address] 2[address] Oct, [facility] [place] [facility] [address] [id number] [place] [address] 1488 Oct, [facility] [place] [facility] [address] [id number] [place] [address] 1167 Oct, [facility] [place] [facility] [address] [id number] [place] [address] 16 Oct, 2011 [facility] [place] [facility] [address] [id number] [place] [address] 5[address] 15 Oct, 2011 [facility] [place] [facility] [address] [id number] [place] [address]- 6[address] 13 Oct, 2011 [facility] [place] [facility] [address] [id number] [place] [address] 08 Oct, 2011 [facility] [place] [facility] [address] [id number] [place] [address] Sep, [facility] [place] [facility] [address] [id number] [place] [address] Sep, [facility] [place] [facility] [address] [id number] [place] [address] 5[address] Sep, [facility] [place] [facility] [address] [id number] [place] [address] 4466 Sep, [facility] [place] [facility] [address] [id number] [place] [address] 5104 Sep, [facility] [place] [facility] [address] [id number] [place] [address] Sep, [facility] [place] [facility] [address] [id number] [place] [address] 224[address] Aug, [facility] [place] [facility] [address] [id number] [place] [address] July, [facility] [place] [facility] [address] [id number] [place] [address] July, [facility] [place] [facility] [address] [id number] [place] [address] 5[address] Jun, [facility] [place] [facility] [address] [id number] [place] [address] 5679 Jun, [facility] [place] [facility] [address] [id number] [place] [address] 6[address] Jun, [facility] [place] [facility] [address] [id number] [place] [address] Jun, [facility] [place] [facility] [address] [id number] [place] [address] 2957 Jun, [facility] [place] [facility] [address] [id number] [place] [address] 5[address] Jun, [facility] [place] [facility] [address] [id number] [place] [address] 16[address] Jun, [facility] [place] [facility] [address] [id number] [place] [address]- 69[address] 08 Jun, 2011 [facility] [place] [facility] [address] [id number] [place] [address] 59[address] Jun, [facility] [place] [facility] [address] [id number] [place] [address]- 3686 Jun, [facility] [place] [facility] [address] [facility] [id number] [place] [address] 3696 Jun, [facility] [place] [facility] [address] [id number] [place] [address] 9[address] 19 May, 2011 [facility] [place] [facility] [address] [id number] [place] [address]- 9806 16 May, 2011 [facility] [place] [facility] [address] [id number] [place] [address]- 4435 14 May, 2011 [facility] [place] [facility] [address] [id number] [place] [address] 06 May, 2011 [facility] [place] [facility] [address] [facility] [id number] [place] [address] 1346 Apr, [facility] [place] [facility] [address] [facility] [id number] [place] [address] 4633 Apr, [facility] [place] [facility] [address] [facility] [id number] [place] [address]- 4969 Apr, [facility] [place] [facility] [address] [id number] [place] [address] 2588 Apr, [facility] [place] [facility] [address] [facility] [id number] [place] [address] 8603 Apr, [facility] [place] [facility] [address] [facility] [id number] [place] [address]- 1734 Apr, [facility] [place] [facility] [address] [facility] [id number] [place] [address]- 7074 Apr, [facility] [place] [facility] [address] [facility] [id number] [place] [address]- 2025 Apr, [facility] [place] [facility] [address] [id number] [place] [address] 7612 Mar, [facility] [address] [id number] [place] [address]- 1196 Mar, [facility] [place] [facility] [address] [id number] [place] [address]- 1806 Mar, [facility] [address] [id number] [place] [address]- 3753 Mar, [facility] [place] [facility] [address] [id number] [place] [address]- 6553 17 Mar, 2011 [facility] [address] [id number] [place] [address]- 7341 Mar, [facility] [place] [facility] [address] [id number] [place] [address] 0949 Mar, [facility] [address] [id number] [place] [address]- 9372 Mar, [facility] [address] [id number] [place] [address]- 8539 Mar, [facility] [address] [id number] [place] [address]- 7218 Mar, [facility] [address] [id number] [place] [address]- 6565 Mar, [facility] [place] [facility] [address] [id number] [place] [address]- 9822 Mar, [facility] [place] [facility] [address] [id number] [place] [address]- 5625 Mar, [facility] [place] [facility] [address] [id number] [place] [address]- 6076 Mar, [facility] [place] [facility] [address] [id number] [place] [address]- 5756 Mar, [facility] [place] [facility] [address] [id number] [place] [address]- 1386 Mar, [facility] [place] [facility] [address] [id number] [place] [address]- 9426 Feb, [facility] [place] [facility] [address] [id number] [place] [address]- 5970 Feb, [facility] [place] [facility] [address] [id number] [place] [address] Feb, [facility] [place] [facility] [address] [id number] [place] [address]- 6110 Jan, [facility] [place] [facility] [address] [id number] [place] [address]- 1937 Jan, [facility] [place] [facility] [address] [id number] [place] [address]- 1612 Jan, [facility] [place] [facility] [address] [id number] [place] [address]- 6202 Dec, [facility] [place] [facility] [address] [id number] [place] [address]- 3604 Dec, [facility] [place] [facility] [address] [id number] [place] [address]- 3900 Nov, [facility] [place] [facility] [address] [id number] [place] [address]- 0110 Oct, [facility] [place] [facility] [address] [id number] [place] [address]- 8009 Oct, [facility] [place] [facility] [address] [id number], [place] [address] 0841 Oct, [facility] [place] [facility] [address] [id number] [place] [address]- 5006 Sep, [facility] [place] [facility] [address] [id number] [place] [address]- 3451 Apr, [facility] [place] [facility] [address] [id number] [place] [address]- 8115 Feb, [facility] [place] [facility] [address] [facility] [id number] [place] [address] Jan, IMMUNIZATIONS No Known Immunizations SOCIAL HISTORY Never Assessed REASON FOR VISIT Hard time Breathing x 2 weeks. Pt states she has been to the emergency room and has rx prednisone and it is not working. Pt also c/o puffy eyes.-awoods PLAN OF CARE Activity Details Follow Up 2 - 3 Days with Alondra Jacob Reason:COPD/CHF exacerbation VITAL SIGNS Height 70 in 2018-01-07 Weight 207.6 lbs 2018-01-07 Temperature 98.0 degrees Fahrenheit 2018-01-07 Heart Rate 105 bpm 2018-01-07 Respiratory Rate 24 2018-01-07 Oximetry [address]:98 % 2018-01-07 BMI 29.78 kg/m2 2018-01-07 Blood pressure systolic 176 mmHg 2018-01-07 Blood pressure diastolic 92 mmHg 2018-01-07 MEDICATIONS Medication Instructions Dosage Frequency Start Date End Date Duration Status Oxygen 2Lt by inhalation route 24 hours Active Trulicity 0.75 MG/0.5ML Subcutaneous once weekly Inject 0.5 ml Jun, 90 days Not-Taking Ibuprofen Active Aspir-81 81 MG Orally Once a day 1 tablet 24h Active Spiriva HandiHaler 18 MCG Inhalation Once a day 1 capsule 24h Active PredniSONE 5 mg Orally Once a day 4 tablets daily x7days, then 3 tablets [id number] then 2 tablets daily 24h Dec, Active Lasix 20 MG Orally Once a day 1 tablet 24h Active Advair Diskus 500-50 MCG/DOSE Inhalation Twice a day 1 puff 12h Dec, Active Ipratropium-Albuterol 0.5-2.5 (3) mg/3ml Inhalation Four times a day 3 ml as needed for Shortness of breath 6h Active Glimepiride 1 MG Orally Once a day on the days you are taking the prednsone 1 tablet with breakfast or the first main meal of the day Mar, 30 day(s) Not-Taking Metoprolol Tartrate 25 MG Orally 2 times a day 1/2 tablet 12h Active Tylenol Active Ventolin HFA 108 (90 Base) MCG/ACT Inhalation every 4 hours 2 puffs as needed for short of breath or wheeze 4h Active Entresto 24-26 MG Orally Twice a day 1 tablet 12h Active RESULTS No Results PROCEDURES No Known [...] COPD-[facility] 12/30/2016 Hospitalization History [facility] for inpatient-last around 2006 or so. Hospitalization History for COPD x2 Mar 2017 Hospitalization History Upper GI bleed at apr 2017 Hospitalization History [facility]- COPD Exacerbation, diarrhea 05/23/2017 Hospitalization History COPD exacerbation-[facility] 06/13/17 Hospitalization History [facility] 09/09/2017 Hospitalization History COPD-[facility]--[facility] 11/2017
== END 2018-01-19 15:07 | disposition home or self-care (01) ==
LOC: EDUNIT# 14:13 → ER 14:17
DX: K04.7 Periapical abscess without sinus (principal); J44.9 Chronic obstructive pulmonary disease, unspecified; G47.30 Sleep apnea, unspecified; I10 Essential (primary) hypertension; G43.909 Migraine, unspecified, not intractable, without status migrainosus; F31.9 Bipolar disorder, unspecified; F41.9 Anxiety disorder, unspecified; E11.9 Type 2 diabetes mellitus without complications; Z87.19 Personal history of other diseases of the digestive system; Z88.8 Allergy status to other drugs, medicaments and biological substances; Z79.51 Long term (current) use of inhaled steroids; Z91.5 Personal history of self-harm; Z82.49 Family history of ischemic heart disease and other diseases of the circulatory system; Z80.1 Family history of malignant neoplasm of trachea, bronchus and lung; Z79.82 Long term (current) use of aspirin; Z79.84 Long term (current) use of oral hypoglycemic drugs; Z79.52 Long term (current) use of systemic steroids; Z77.22 Contact with and (suspected) exposure to environmental tobacco smoke (acute) (chronic)
CPT/HCPCS: 10060; 96372

== ENCOUNTER 2018-02-04 11:15 | Emergency (ER) | payer OTHER ==
[~2018-02-04] VITALS: Ht 175.3 cm; Wt 94.2 kg
[~2018-02-04 11:15] MED LIST changes: +CLIN300C11 PO; +HYDR-4226 PO
[2018-02-04] MEDS ORDERED: RT-ALBUTEROL/IPRATROPIUM 3 ML (DUONEB) VIAL ONE (11:27)
[2018-02-04] MEDS ORDERED: RT-ALBUTEROL/IPRATROPIUM 3 ML (DUONEB) VIAL INH ONE ×2 (11:30)
[2018-02-04] MEDS ORDERED: methylPREDNISolone 125 MG (Solu-MEDROL) VIAL IVP ONE (11:30)
[2018-02-04 11:42] LABS: ABG BASE EXCESS -0.4 MMOL/L (-2.5-2.5); ABG OXYGEN SATURATION 99 % (94-100); ABG PCO2 32 MMHG (35-45); ABG PH 7.47 (7.37-7.43); ABG PO2 120 MMHG (79-93); ABG TCO2 23.9 MMOL/L (21.0-31.0)
[2018-02-04 11:43] LABS: ALLENS TEST YES-POS; INSPIRED O2 4L; PATIENT TEMP 97.9; VENTILATOR NO
--- NOTE | 2018-02-04 11:43 | ED Respiratory ---
General Chief Complaint: Respiratory Problems Stated Complaint: SOB Nursing Triage Note: Pt c/o SOB that began night into Thu. Pt reports cough with scant phlegm that is clear to yellow in color. Pt reports last breathing tx at 0930. Source: patient Exam Limitations: no limitations History of Present Illness Date Seen by Provider: Feb 04, 2018 Time Seen by Provider: 11:41 Initial Comments To ER per private vehicle from home with reports of shortness of breath for 2-3 days. She has a history of COPD and CHF. No fevers. Productive cough. Timing/Duration: constant, getting worse Severity: moderate Prior Episodes/Possible Cause: frequent episodes (Worse) Modifying Factors: Worse With Activity Associated Symptoms: cough; No fever/chills; shortness of breath, wheezing Allergies and Home Medications Allergies Coded Allergies: buspirone (Verified Allergy, Mild, 05/02/17) Made"legs Shaky" amitriptyline (Verified Allergy, Unknown, 05/02/17) " MAKES ME DO WEIRD THINGS LIKE WALK IN MY SLEEP AND HAVE HALLUCINATIONS." Home Medications Albuterol Sulfate 1 Puff Puff, 2 PUFF IH Q4H PRN for SHORTNESS OF BREATH, ( Reported) Aspirin 81 Mg Tablet.dr, 81 MG PO DAILY, (Reported) Clindamycin HCl 300 Mg Capsule, 300 MG PO TID Prescribed by: ELLEN ACE on 01/19/18 1450 Fluticasone/Salmeterol 1 Each Blst.w.dev, 1 PUFF IH BID, (Reported) Furosemide 20 Mg Tablet, 20 MG PO DAILY, (Reported) Glimepiride 1 Mg Tablet, 1 MG PO DAILY PRN for WHEN TAKING PREDNISONE, (Reported ) Hydrocodone/Acetaminophen 1 Each Tablet, 1 EACH PO Q6H PRN for PAIN-MODERATE Prescribed by: ELLEN ACE on 01/19/18 1450 Ipratropium/Albuterol Sulfate 3 Ml Ampul.neb, 3 ML IH QID PRN for SHORTNESS OF BREATH, (Reported) Levofloxacin 500 Mg Tablet, 500 MG PO DAILY Prescribed by: CONNOR JOHNSTON on 11/22/17 1118 Metoprolol Tartrate 25 Mg Tablet, 12.5 MG PO BID, (Reported) TAKES 1/2 (25MG) TABLET Ondansetron 4 Mg Tab.rapdis, 4 MG PO Q6H PRN for NAUSEA/VOMITING Prescribed by: ABIGAIL PASCUAL on 12/06/17 1434 Prednisone 10 Mg Tab, 10 MG PO DAILY 5 tabs (50mg) Day 1 4 tabs (40mg) Day 2 4 tabs (40mg) Day 3 3 tabs (30mg) Day 4 3 tabs (30mg) Day 5 2 tabs (20mg) Day 6 2 tabs (20mg) Day 7 1 tab (10Mg) Day 8 Prescribed by: CONNOR JOHNSTON on 11/22/17 1118 Prednisone 20 Mg Tab, 40 MG PO DAILY Prescribed by: ABIGAIL PASCUAL on 12/06/17 1434 Prednisone 5 Mg Tablet, 5 MG PO UD 12 PILLS DAY 1, THEN DECREASE BY 1 PILL A DAY UNTIL GONE Prescribed by: TIMOTHY HUGHES on 12/26/171947 Sacubitril/Valsartan 1 Each Tablet, 1 TAB PO BID, (Reported) Tiotropium [place] 1 Inh Aerp, 1 CAP IH DAILY, (Reported) Patient Home Medication List Home Medication List Reviewed: Yes Review of Systems Review of Systems Constitutional: see HPI EENTM: see HPI Respiratory: see HPI, cough, short of breath, wheezing Genitourinary: no symptoms reported Musculoskeletal: no symptoms reported Skin: no symptoms reported Psychiatric/Neurological: No Symptoms Reported Hematologic/Lymphatic: No Symptoms Reported Past Gqglkkw-Ekwdeq-Xwmzjo Hx Patient Social History Alcohol Use: Denies Use Recreational Drug Use: No (4 YRS AGO) Drug of Choice: + IV METH, ALSO SMOKES IT; MULTIPLE BENZODIAZEPINE OD'S Type Used: Cigarettes 2nd Hand Smoke Exposure: Yes Recent Foreign Travel: No Contact w/Someone Who Travel: No Recent Infectious Disease Expo: No Recent Hopitalizations: Yes Immunizations Up To Date Tetanus Booster (TDap): Unknown Date of Pneumonia Vaccine: Dec 08, 2011 Date of Influenza Vaccine: Dec 31, 2016 Seasonal Allergies Seasonal Allergies: No Past Medical History Surgeries: Yes (EGD/COLONOSCOPY; CARDIAC CATH 09/18/17--NO INTERVENTION) Cardiac Respiratory: Yes (O2 AT 2-3L/NC) Pneumonia, Chronic Bronchitis, Sleep Apnea, COPD Currently Using CPAP: No Currently Using BIPAP: Yes Cardiac: Yes Cardiomyopathy, Coronary Artery Disease, High Cholesterol, Hypertension Neurological: Yes Headaches /Migraines 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 Disorders: No 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 Disorders: Denies X [employer] History: Menopausal Sexually Transmitted Disease: No HIV/AIDS: No Genitourinary: No Gastrointestinal: Yes (GASTRITIS AND ESOPHAGEAL CANDIDIASIS 04/2017) Gastroesophageal Reflux, Gastrointestinal Bleed, Chronic Constipation, Chronic Diarrhea, Esophagitis, Ulcer Musculoskeletal: Yes (chronic shoulder and neck pain) Endocrine: Yes (DM- only while on steriods per pt) Diabetes, Non-Insulin dep HEENT: No Cancer: No Psychosocial: Yes (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) Sleep Difficulties, Anxiety, Suicide Attempts, Bipolar, Depression Integumentary: No Blood Disorders: Yes (ANEMIA) Adverse Reaction/Blood Tranf: No Family Medical History Cancer 03 MOTHER, Onset:66 (LUNG ) 09 BROTHER (LUNG ) Congestive heart failure 03 FATHER Heart Disease, Cancer Physical Exam Vital Signs - First Documented 02/04/18 02/04/18 11:19 11:32 Temp 97.9 Pulse 82 Resp 26 B/P (MAP) 140/92 (108) Pulse Ox 100 O2 Delivery Room Air O2 Flow Rate 4.00 Capillary Refill : Less Than 3 Seconds Height: 5'9.00" Weight: 207lbs. 12.0oz. 94.640087fs; 29.1 BMI Method:Stated General Appearance: WD/WN, no apparent distress Eyes: Bilateral Eye Normal Inspection, Bilateral Eye PERRL, Bilateral Eye EOMI HEENT: PERRL/EOMI, normal ENT inspection, other (There is no jugular venous distention) Neck: non-tender, full range of motion Respiratory: no respiratory distress, no accessory muscle use, other (she's diffusely wheezy with diminished air movement.) Gastrointestinal: normal bowel sounds, non tender, soft Extremities: other (no pedal edema) Neurologic/Psychiatric: alert, normal mood/affect, oriented x 3 Skin: normal color, warm/dry Progress/Results/Core Measures Suspected Sepsis Recent Fever Within 48 Hours: No Infection Criteria Present: None New/Unexplained Altered Menta: No Sepsis Screen: No Definite Risk SIRS Temperature:97.9 Pulse: 82 Respiratory Rate: 26 Laboratory Tests 02/04/18 12:24: White Blood Count 10.8 Blood Pressure 140 /92 Mean: 108 Laboratory Tests 02/04/18 12:24: Creatinine 0.73, Platelet Count 311, Total Bilirubin 0.4 Results/Orders Lab Results Laboratory Tests Test 02/04/18 11:35 02/04/18 12:24 Range/Units Blood Gas Puncture Site R RAD Blood Gas Patient Temperature 97.9 Arterial Blood pH 7.47 H 7.37-7.43 Arterial Blood Partial Pressure CO2 32 L 35-45 MMHG Arterial Blood Partial Pressure O2 120 H 79-93 MMHG Arterial Blood HCO3 23 23-27 MMOL/L Arterial Blood Total CO2 23.9 21.0-31.0 MMOL/L Arterial Blood Oxygen Saturation 99 94-100 % Arterial Blood Base Excess -0.4 -2.5-2.5 MMOL/L Torsten Test YES-POS Blood Gas Ventilator Setting NO Blood Gas Inspired Oxygen 4L White Blood Count 10.8 4.3-11.0 10^3/uL Red Blood Count 4.41 4.35-5.85 10^6/uL Hemoglobin 12.8 11.5-16.0 G/DL Hematocrit 39 35-52 % Mean Corpuscular Volume 87 80-99 FL Mean Corpuscular Hemoglobin 29 25-34 PG Mean Corpuscular Hemoglobin Concent 33 32-36 G/DL Red Cell Distribution Width 14.0 10.0-14.5 % Platelet Count 311 130-400 10^3/uL Mean Platelet Volume 9.7 7.4-10.4 FL Neutrophils (%) (Auto) 67 42-75 % Lymphocytes (%) (Auto) 23 12-44 % Monocytes (%) (Auto) 8 0-12 % Eosinophils (%) (Auto) 3 0-10 % Basophils (%) (Auto) 0 0-10 % Neutrophils # (Auto) 7.2 1.8-7.8 X 10^3 Lymphocytes # (Auto) 2.5 1.0-4.0 X 10^3 Monocytes # (Auto) 0.8 0.0-1.0 X 10^3 Eosinophils # (Auto) 0.3 0.0-0.3 10^3/uL Basophils # (Auto) 0.0 0.0-0.1 10^3/uL Sodium Level 142 135-145 MMOL/L Potassium Level 4.0 3.6-5.0 MMOL/L Chloride Level 109 H 98-107 MMOL/L Carbon Dioxide Level 22 21-32 MMOL/L Anion Gap 11 5-14 MMOL/L Blood Urea Nitrogen 8 7-18 MG/DL Creatinine 0.73 0.60-1.30 MG/DL Estimat Glomerular Filtration Rate > 60 BUN/Creatinine Ratio 11 Glucose Level 109 H 70-105 MG/DL Calcium Level 9.5 8.5-10.1 MG/DL Corrected Calcium 9.6 8.5-10.1 MG/DL Total Bilirubin 0.4 0.1-1.0 MG/DL Aspartate Amino Transf (AST/SGOT) 11 5-34 U/L Alanine Aminotransferase (ALT/SGPT) 10 0-55 U/L Alkaline Phosphatase 82 40-136 U/L Total Protein 6.3 L 6.4-8.2 GM/DL Albumin 3.9 3.2-4.5 GM/DL My Orders Orders - ELLEN ACE APRN Cbc With Automated Diff (02/04/18 11:29) Comprehensive Metabolic Panel (02/04/18 11:29) Chest 1 View, Ap/Pa Only (02/04/18 11:29) Iv Heplock-Insert (Order) (02/04/18 11:29) Albuterol/Ipra Inhalation Soln (Duoneb I (02/04/18 11:30) Svn Small Volume Nebulizer (02/04/18 11:29) Methylprednisolone Sod Succ (Solu-Medrol (02/04/18 11:30) Albuterol/Ipra Inhalation Soln (Duoneb I (02/04/18 11:30) Svn Small Volume Nebulizer (02/04/18 11:29) Arterial Blood Gas (02/04/18 11:35) BNP (02/04/18 11:38) Ua Culture If Indicated (02/04/18 11:40) Drug Screen Stat (Urine) (02/04/18 11:40) Lorazepam Injection (Ativan Injection) (02/04/18 12:30) Medications Given in ED Current Medications Medications Dose Ordered Sig/Vladimir Route Start Time Stop Time Status Last Admin Dose Admin Lorazepam 1 mg ONCE PRN IVP 02/04/18 12:30 02/04/18 12:33 1 MG Methylprednisolone Sodium Succinate 125 mg ONCE ONCE IVP 02/04/18 11:30 02/04/18 11:31 DC 02/04/18 12:33 125 MG Vital Signs/I&O 02/04/18 02/04/18 11:19 11:32 Temp 97.9 Pulse 82 Resp 26 B/P (MAP) 140/92 (108) Pulse Ox 100 99 O2 Delivery Room Air Nasal Cannula O2 Flow Rate 4.00 Capillary Refill : Less Than 3 Seconds Blood Pressure Mean: 108 Departure Impression Primary Impression: Anxiety Additional Impression: COPD (chronic obstructive pulmonary disease) Disposition: 01 HOME, SELF-CARE Condition: Stable Departure-Patient Inst. Decision time for Depature: 13:03 Referrals: [facility] (PCP) Primary Care Physician ALIZA CARTER (Family) Primary Care Physician Patient Instructions: Exacerbation of COPD Add. Discharge Instructions: 1. Steroids and antibiotic as directed. Continue to use your nebulizer. Follow- up with primary care within 24 hours. All discharge instructions reviewed with patient and/or family. Voiced understanding. Scripts Prednisone (Prednisone) 20 Mg Tab 40 MG PO DAILY, #8 TAB Prov: ELLEN ACE CATALYST OPERATOR GASOLINE 02/04/18 Cefuroxime Axetil (Cefuroxime) 250 Mg Tablet 250 MG PO BID, #10 TAB Prov: ELLEN ACE APRN 02/04/18 ELLEN ACE CATALYST OPERATOR GASOLINE Feb 04, 2018 11:43
--- NOTE | 2018-02-04 12:13 | Diagnostic Imaging Report ---
INDICATION: Difficulty breathing. TIME OF EXAM: 11:51 a.m. COMPARISON: Comparison is made with prior study from 01/09/2018. FINDINGS: The heart is enlarged but stable. Lungs are clear. No infiltrate or failure is seen. No effusion or pneumothorax is identified. IMPRESSION: Cardiomegaly. No acute feature is detected. Dictated by: Dictated on workstation # [id number]
[2018-02-04] MEDS ORDERED: LORazepam INJ 2 MG/ML (ATIVAN) VIAL IVP PRN (12:30)
[2018-02-04 12:37] LABS: BASOPHILS % (AUTO) 0 % (0-10); EOSINOPHILS # (AUTO) 0.3 10^3/uL (0.0-0.3); EOSINOPHILS % (AUTO) 3 % (0-10); HEMATOCRIT 39 % (35-52); HEMOGLOBIN 12.8 G/DL (11.5-16.0); LYMPHOCYTES # (AUTO) 2.5 X 10^3 (1.0-4.0); LYMPHOCYTES % (AUTO) 23 % (12-44); MEAN CORPUSCULAR HEMOGLOBIN 29 PG (25-34); MEAN CORPUSCULAR HGB CONC 33 G/DL (32-36); MEAN CORPUSCULAR VOLUME 87 FL (80-99); MEAN PLATELET VOLUME 9.7 FL (7.4-10.4); MONOCYTES # (AUTO) 0.8 X 10^3 (0.0-1.0); MONOCYTES % (AUTO) 8 % (0-12); NEUTROPHILS # (AUTO) 7.2 X 10^3 (1.8-7.8); NEUTROPHILS % (AUTO) 67 % (42-75); PLATELET COUNT 311 10^3/uL (130-400); RED BLOOD COUNT 4.41 10^6/uL (4.35-5.85); WHITE BLOOD COUNT 10.8 10^3/uL (4.3-11.0)
[2018-02-04 12:57] LABS: ALANINE AMINOTRANSFERASE 10 U/L (0-55); ALBUMIN 3.9 GM/DL (3.2-4.5); ALKALINE PHOSPHATASE 82 U/L (40-136); BILIRUBIN,TOTAL 0.4 MG/DL (0.1-1.0); BUN/CREATININE RATIO 11; CALCIUM 9.5 MG/DL (8.5-10.1); CARBON DIOXIDE 22 MMOL/L (21-32); CHLORIDE 109 MMOL/L (98-107); CREATININE SERUM 0.73 MG/DL (0.60-1.30); GFR ESTIMATED > 60; GLUCOSE 109 MG/DL (70-105); SODIUM 142 MMOL/L (135-145); TOTAL PROTEIN 6.3 GM/DL (6.4-8.2)
[2018-02-04] MEDS ORDERED: CEFU250T80 PO (13:05)
[2018-02-04] MEDS ORDERED: PRD20T PO (13:05)
[2018-02-04 13:26] VITALS: BP 145/105
== END 2018-02-04 13:29 | disposition home or self-care (01) ==
LOC: EDUNIT# 11:15 → ER 11:16
DX: F41.9 Anxiety disorder, unspecified (principal); I11.0 Hypertensive heart disease with heart failure; I50.9 Heart failure, unspecified; J44.9 Chronic obstructive pulmonary disease, unspecified; G47.30 Sleep apnea, unspecified; I42.9 Cardiomyopathy, unspecified; I25.10 Atherosclerotic heart disease of native coronary artery without angina pectoris; G43.909 Migraine, unspecified, not intractable, without status migrainosus; K21.9 Gastro-esophageal reflux disease without esophagitis; E11.9 Type 2 diabetes mellitus without complications; E78.00 Pure hypercholesterolemia, unspecified; F31.9 Bipolar disorder, unspecified; D64.9 Anemia, unspecified; F12.10 Cannabis abuse, uncomplicated; F15.10 Other stimulant abuse, uncomplicated; Z77.22 Contact with and (suspected) exposure to environmental tobacco smoke (acute) (chronic); Z87.19 Personal history of other diseases of the digestive system; Z91.5 Personal history of self-harm; Z86.19 Personal history of other infectious and parasitic diseases; Z80.1 Family history of malignant neoplasm of trachea, bronchus and lung; Z82.49 Family history of ischemic heart disease and other diseases of the circulatory system; Z87.01 Personal history of pneumonia (recurrent); Z95.9 Presence of cardiac and vascular implant and graft, unspecified; Z88.8 Allergy status to other drugs, medicaments and biological substances; Z79.51 Long term (current) use of inhaled steroids; Z79.4 Long term (current) use of insulin; Z79.52 Long term (current) use of systemic steroids; Z79.82 Long term (current) use of aspirin
CPT/HCPCS: 36415; 36600; 71045; 80053; 82805; 83880; 85025; 94640; 96374; 96375

== ENCOUNTER 2018-02-17 23:30 | Inpatient (IN) | payer OTHER ==
[~2018-02-17] VITALS: Ht 170.2 cm; Wt 99.8 kg
[~2018-02-17 23:30] MED LIST changes: +CEFU250T80 PO
[2018-02-17] MEDS ORDERED: RT-ALBUTEROL SULF 2.5 MG/3 ML PRE-MIX VIAL ONE (23:38)
[2018-02-17] MEDS ORDERED: RT-ALBUTEROL SULF 2.5 MG/3 ML PRE-MIX VIAL INH STA (23:38)
[2018-02-17] MEDS ORDERED: RT-ALBUTEROL/IPRATROPIUM 3 ML (DUONEB) VIAL ONE (23:38)
[2018-02-17] MEDS ORDERED: methylPREDNISolone 125 MG (Solu-MEDROL) VIAL IVP ONE (23:45)
[2018-02-17] MEDS ORDERED: LORazepam INJ 2 MG/ML (ATIVAN) VIAL IVP ONE (23:45)
[2018-02-17] MEDS ORDERED: RT-ALBUTEROL/IPRATROPIUM 3 ML (DUONEB) VIAL INH ONE (23:45)
[2018-02-17 23:50] LABS: BASOPHILS % (AUTO) 0 % (0-10); EOSINOPHILS # (AUTO) 0.4 10^3/uL (0.0-0.3); EOSINOPHILS % (AUTO) 4 % (0-10); HEMATOCRIT 38 % (35-52); HEMOGLOBIN 12.7 G/DL (11.5-16.0); LYMPHOCYTES # (AUTO) 3.1 X 10^3 (1.0-4.0); LYMPHOCYTES % (AUTO) 30 % (12-44); MEAN CORPUSCULAR HEMOGLOBIN 29 PG (25-34); MEAN CORPUSCULAR HGB CONC 33 G/DL (32-36); MEAN CORPUSCULAR VOLUME 88 FL (80-99); MEAN PLATELET VOLUME 9.6 FL (7.4-10.4); MONOCYTES # (AUTO) 0.7 X 10^3 (0.0-1.0); MONOCYTES % (AUTO) 6 % (0-12); NEUTROPHILS # (AUTO) 6.2 X 10^3 (1.8-7.8); NEUTROPHILS % (AUTO) 60 % (42-75); PLATELET COUNT 306 10^3/uL (130-400); RED BLOOD COUNT 4.34 10^6/uL (4.35-5.85); RED CELL DISTRIBUTION WIDTH 14.1 % (10.0-14.5); WHITE BLOOD COUNT 10.4 10^3/uL (4.3-11.0)
[2018-02-18] VITALS (9 sets, daily range): BP systolic 128–163; BP diastolic 75–95
[2018-02-18 00:08] LABS: ALANINE AMINOTRANSFERASE 12 U/L (0-55); ALKALINE PHOSPHATASE 117 U/L (40-136); BILIRUBIN,TOTAL 0.3 MG/DL (0.1-1.0); BUN/CREATININE RATIO 13; CALCIUM 9.7 MG/DL (8.5-10.1); CARBON DIOXIDE 23 MMOL/L (21-32); CHLORIDE 107 MMOL/L (98-107); CREATININE SERUM 0.86 MG/DL (0.60-1.30); GFR ESTIMATED > 60; GLUCOSE 106 MG/DL (70-105); POTASSIUM 3.5 MMOL/L (3.6-5.0); SODIUM 143 MMOL/L (135-145); TOTAL PROTEIN 6.8 GM/DL (6.4-8.2)
--- OUTSIDE RECORDS SUMMARY | 2018-02-18 00:22 | XMS REPORT ---
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 Active 25266980 Problem Chronic bronchitis, unspecified chronic bronchitis type J42 Active 32096550 Problem COPD exacerbation J44.1 Active 047806693 Problem Examination of eyes and vision V72.0 Active 925399532 Problem Acute on chronic systolic congestive heart failure I50.23 Active 138277617 Problem Intractable cyclical vomiting with nausea G43.A1 Active 47393905 Problem Diabetes E11.9 Active 528684793 Problem Chronic obstructive pulmonary disease, unspecified COPD type J44.9 Active 11004691 Problem Anxiety F41.9 Active 89325020 Problem Migraine G43.909 Active 71320864 Problem TMJ (sprain of temporomandibular joint) S03.4XXA Active 26714906 Problem 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 Active Problem Tobacco abuse Z72.0 Active 75933642 Problem Bipolar disorder, unspecified F31.9 Active 52045008 Problem Bipolar disorder with depression F31.30 Active 39674233 Problem Chronic constipation K59.09 Active 738782210 Problem Generalized anxiety disorder F41.1 Active 02430647 Problem Memory loss R41.3 Active 65752216 Problem Other emphysema J43.8 Active 52095530 ALLERGIES Substance Reaction Event Type Date Status Narcotic NARC ALERT Broke Narc contract Non Drug Allergy Jan, Active amitriptyline OD on medication, causes parasonias Non Drug Allergy Jan, Active Buspar 10 Mg Tablet made legs shaky Non Drug Allergy Jan, Active Benzodiazepines NARC ALERT Broke narc contract Non Drug Allergy Jan Active ENCOUNTERS Encounter Location Date Diagnosis [facility] [place] [id number] [place] [address] 14254- 3910 Feb, [facility] [place] [id number] [place] [address] 76984- 9720 Jan, COPD exacerbation J44.1 [facility] [place] [address] 77758- 7554 Jan, Dental abscess K04.7 [facility] [place] [id number] [place] [address] 10831- 5109 Jan, COPD exacerbation J44.1 and Acute on chronic systolic congestive heart failure I50.23 [facility] [place] [id number] [place] [address] 44061- 6305 Dec, [facility] [place] [address] 50368- 6695 Dec, [facility] [place] [id number] [place] [address] 82132- 1714 Nov, [facility] [place] [id number] [place] [address] 98620- 7417 Nov, COPD with exacerbation J44.1 and Urinary tract infection without hematuria, site unspecified N39.0 [facility] [place] [id number] [place] [address] 87166- 8927 Nov, Chronic obstructive pulmonary disease, unspecified COPD type J44.9 [facility] [place] [id number] [place] [address] 11858- 6126 Oct, [facility] [place] [id number] [place] [address] 88307- 3571 Oct, [facility] [place] [id number] [place] [address] 76270- 4768 Oct, [facility] [place] [id number] [place] [address] 02013- 7134 Oct, [facility] [place] [address], [place] [address] 9089 Oct, Thrush B37.0 [facility] [place] [id number] [place] [address] 5967 Sep, COPD with exacerbation J44.1 and Anxiety F41.9 [facility] [place] [address], [place] [address] 2740 Sep, [facility] [place] [address] [address]- 8744 Sep, [facility] [place] [id number] [place] [address] 5687 Sep, [facility] [place] [id number] [address]- 5582 Sep, Acute congestive heart failure, unspecified heart failure type I50.9 and Anxiety disorder, unspecified F41.9 [facility] [place] [address], [place] [address]- 1782 Sep, Heart failure, unspecified HF chronicity, unspecified heart failure type I50.9 [facility] [place] [address], [place] [address]- 0679 Sep, [facility] [place] [address] [address]- 8244 Aug, Chronic obstructive pulmonary disease with acute exacerbation J44.1 [facility] [place] [address], [place] [address]- 8616 Aug, [facility] [place] [address], [place] [address]- 5965 Aug, [facility] [place] [address], [place] [address]- 0476 July, [facility] [place] [address], [place] [address]- 1502 July, [facility] [place] [id number] [place] [address] 69148- 7875 July, Diabetes E11.9 and Chronic obstructive pulmonary disease with acute exacerbation J44.1 [facility] [place] [id number] [place] [address] 67695- 1273 Jun, Chronic obstructive pulmonary disease with acute exacerbation J44.1 ; Diabetes E11.9 and Tobacco abuse Z72.0 [facility] [place] [address] 01114- 8075 Jun, [facility] [place] [id number] [place] [address] 53000- 6906 Jun, [facility] [place] [id number] [place] [address] 49348- 0217 May, [facility] [place] [id number] [place] [address] 09920- 4947 May, [facility] [id number] [place] [address] 02781 -1890 17 May, 2017 [facility] [place] [id number] [place] [address] 09642- 4547 16 May, 2017 [facility] [place] [id number] [place] [address] 48337- 6145 15 May, 2017 [facility] [place] [id number] [place] [address] 12708- 9466 14 May, 2017 Diarrhea, unspecified type R19.7 and Intractable cyclical vomiting with nausea G43.A1 [facility] [place] [id number] [place] [address] 54917- 5046 12 May, 2017 [facility] [place] [id number] [place] [address] 40026- 0723 05 May, 2017 [facility] [place] [id number] [place] [address] 99886- 2773 28 Apr, 2017 COPD exacerbation J44.1 ; Esophageal candidiasis B37.81 ; Other acute gastritis with hemorrhage K29.01 and Acute posthemorrhagic anemia D62 [facility] [place] [id number] [place] [address] 73382- 1852 Apr, Viral illness B34.9 and COPD exacerbation J44.1 [facility] [id number] [place] [address] 66038 -7273 Apr, Shortness of breath R06.02 and Pneumonia of both lower lobes due to infectious organism J18.9 [facility] [address] 65156 -3727 Mar, COPD with acute exacerbation J44.1 [address] [address] 24024- 4790 Mar, Chronic obstructive pulmonary disease with acute exacerbation J44.1 and Diabetes E11.9 [facility] [place] [address] 36334- 7854 Mar, [facility] [place] [address] 17981- 6048 Mar, [facility] [id number] [place] [address] 37432 -3173 Mar, COPD exacerbation J44.1 [facility] [place] [id number] [place] [address] 13388- 8378 Mar, [facility] [place] [id number] [place] [address] 61683- 8157 Mar, Migraine G43.909 ; Hypokalemia E87.6 and Type 2 diabetes mellitus without complications E11.9 [facility] [place] [id number] [place] [address] 24314- 6434 Feb, [place] [address] 94155- 8163 Feb, [facility] [place] [id number] [place] [address] 86376- 4982 Feb, Methamphetamine use disorder, moderate, 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 ; Major depressive disorder, recurrent, moderate F33.1 ; Anxiety disorder, unspecified F41.9 and Tobacco abuse Z72.0 [facility] [place] [id number] [place] [address] 22021- 1432 30 Jan, 2017 Major depressive disorder, recurrent, moderate F33.1 [facility] [place] [id number] [place] [address] 78099- 1942 16 Jan, 2017 [facility] [place] [address] 39844- 8468 14 Jan, 2017 [facility] [place] [id number] [place] [address] 10590- 1502 13 Jan, 2017 Major depressive disorder, recurrent, moderate F33.1 [facility] [place] [id number] [place] [address] 51237- 7870 Jan, Major depressive disorder, recurrent, moderate F33.1 ; Anxiety disorder, unspecified F41.9 ; Methamphetamine use disorder, moderate, 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 and Tobacco abuse Z72.0 [facility] [place] [id number] [place] [address] 06210- 0768 Jan, [facility] [place] [address] 30159- 7009 Jan, Chronic obstructive pulmonary disease with acute exacerbation J44.1 and Diabetes E11.9 [facility] [place] [id number] [place] [address] 84374- 8115 Jan, [facility] [place] [id number] [place] [address] 11303- 2742 Jan, [facility] [place] [id number] [place] [address] 10387- 6912 Dec, Acute respiratory failure with hypoxia J96.01 ; Chronic bronchitis, unspecified chronic bronchitis type J42 and Tobacco use Z72.0 [facility] [place] [id number] [place] [address] 62863- 4536 Dec, [facility] [id number] [place] [address] [id number] Nov, Dental caries K02.9 and Dental examination Z01.20 [facility] [place] [id number] [place] [address] 04928- 7169 Nov, Major depressive disorder, recurrent, moderate F33.1 ; Anxiety disorder, unspecified F41.9 and 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 [facility] [id number] [place] [address] [id number] Oct, Dental examination Z01.20 [facility] [place] [id number] [place] [address] 09843- 9051 Oct, [facility] [place] [id number] [place] [address] 09019- 1457 Oct, Diabetes E11.9 and Thrush B37.0 [facility] [place] [id number] [place] [address] 94246- 7181 Oct, [facility] [place] [id number] [place] [address] 21870- 0424 Oct, [facility] [place] [id number] [place] [address] 18289- 0192 Oct, [facility] [place] [id number] [place] [address] 06507- 8826 Sep, Major depressive disorder, recurrent, moderate F33.1 ; Anxiety disorder, unspecified F41.9 and Bipolar disorder, unspecified F31.9 [facility] [place] [id number] [place] [address] 34501- 2882 Sep, Acute exacerbation of chronic obstructive pulmonary disease (COPD) J44.1 and Migraine G43.909 [facility] [place] [id number] [place] [address] 46526- 7201 Sep, [facility] [id number] [place] [address] [id number] Sep, [facility] [place] [id number] [place] [address] 24615- 9689 Sep, Acute exacerbation of chronic obstructive pulmonary disease (COPD) J44.1 [facility] [id number] [place] [address] 26277 -5618 Sep, Acute exacerbation of chronic obstructive pulmonary disease (COPD) J44.1 [facility] [place] [id number] [place] [address] 37786- 1098 Aug, [facility] [place] [address] 01478- 0456 Aug, Major depressive disorder, recurrent, moderate F33.1 ; Anxiety disorder, unspecified F41.9 and 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 [facility] [place] [id number] [place] [address] 11818- 2583 19 Aug, 2016 Wheezing R06.2 ; Non morbid obesity due to excess calories E66.09 ; Migraine without aura and without status migrainosus, not intractable G43.009 and Tobacco abuse Z72.0 [facility] [id number] [place] [address] [id number] 14 Aug, 2016 Encounter for dental examination Z01.20 [facility] [place] [id number] [place] [address] 41499- 1295 02 Aug, 2016 Major depressive disorder, recurrent, moderate F33.1 ; Anxiety disorder, unspecified F41.9 and 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 [facility] [place] [id number] [place] [address] 15468- 1763 July, [place] [id number] [place] [address] 75905- 2192 July, [place] [address] 75246- 2623 July, [facility] [place] [id number] [place] [address] 43889- 6073 July, Diabetes E11.9 [facility] [place] [address] 45871- 2390 Jun, Major depressive disorder, recurrent, moderate F33.1 [facility] [place] [address] 046318- 6321 Jun, Major depressive disorder, recurrent, moderate F33.1 ; 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 ; Generalized anxiety disorder F41.1 and Bipolar disorder, unspecified F31.9 [facility] [place] [address] 09707- 6040 Jun, Diabetes E11.9 ; Migraine G43.909 ; Thrush B37.0 and Wheezing R06.2 [facility] [address] [id number] Jun, Dental examination Z01.20 [facility] [place] [address] 10523- 4765 Jun, [facility] [place] [address] 83214- 9090 Jun, Major depressive disorder, recurrent, moderate F33.1 ; Anxiety disorder, unspecified F41.9 and 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 [facility] [place] [address] 30390- 1132 Jun, [facility] [place] [id number] [place] [address] 97260- 8110 Jun, Wheezing R06.2 [facility] [address] [id number] Jun, Dental caries K02.9 [facility] [place] [address] 777402- 5806 Jun, Major depressive disorder, recurrent, moderate F33.1 ; Anxiety disorder, unspecified F41.9 and 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 [facility] [place] [id number] [place] [address] 35913- 8084 Jun, RLQ abdominal pain R10.31 ; Diabetes E11.9 ; Obesity, unspecified obesity severity, unspecified obesity type E66.9 ; Wheezing R06.2 and Abnormal urinalysis R82.90 [facility] [place] [id number] [place] [address] 00430- 5098 May, [place] [id number] [place] [address] 99353- 3949 May, Well woman exam Z01.419 ; Breast cancer screening Z12.39 ; Cervical cancer screening Z12.4 ; Urinary frequency R35.0 ; Edema, unspecified type R60.9 and Chronic constipation K59.09 [place] [address] 59766- 9835 May, Major depressive disorder, recurrent, moderate F33.1 ; Anxiety disorder, unspecified F41.9 and 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 [facility] [address] [id number] May, Dental examination Z01.20 [place] [id number] [place] [address] 08220- 8769 May, [place] [id number] [place] [address] 83367- 2976 May, [place] [id number] [place] [address] 02834- 6141 May, Chronic constipation K59.09 [facility] [place] [id number] [place] [address] 80704- 7927 Apr, [facility] [place] [id number] [place] [address] 56782- 8211 Apr, Major depressive disorder, recurrent, moderate F33.1 ; Anxiety disorder, unspecified F41.9 and 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 [facility] [place] [id number] [place] [address] 07342- 0552 Apr, [facility] [place] [id number] [place] [address] 62435- 0708 Mar, Major depressive disorder, recurrent, moderate F33.1 [id number] [place] [address] 69758- 5404 Mar, Major depressive disorder, recurrent, moderate F33.1 ; Generalized anxiety disorder F41.1 and Bipolar I disorder, most recent episode depressed with anxious distress F31.30 [place] [id number] [place] [address] 68081- 7967 Mar, Diabetes E11.9 ; Non morbid obesity due to excess calories E66.09 ; Breast cancer screening Z12.39 and Encounter for immunization Z23 [id number] [place] [address] 67844- 1866 Mar, Major depressive disorder, recurrent, moderate F33.1 ; Anxiety disorder, unspecified F41.9 and 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 [place] [id number] [place] [address] 07300- 0753 Mar, [place] [id number] [place] [address] 94205- 9984 Feb, Major depressive disorder, recurrent, moderate F33.1 ; Anxiety disorder, unspecified F41.9 and 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 [id number] [place] [address] 09356- 6386 Feb, [place] [id number] [place] [address] 50625- 9767 Feb, [place] [id number] [place] [address] 42471- 6681 Jan, Major depressive disorder, recurrent, moderate F33.1 ; Generalized anxiety disorder F41.1 and Bipolar disorder, current episode depressed, severe, without psychotic features F31.4 [id number] [place] [address] 05576- 2942 Jan, Major depressive disorder, recurrent, moderate F33.1 ; Anxiety disorder, unspecified F41.9 and 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 [facility] [place] [id number] [place] [address] 86618- 0754 Jan, Bronchitis J40 [facility] [place] [id number] [place] [address] 46066- 6740 Jan, [facility] [place] [id number] [place] [address] 70112- 1437 Jan, [place] [id number] [place] [address] 62839- 5445 Jan, Elbow injury, right, initial encounter S59.901A ; Multiple contusions T14.8 and Cervical strain, acute, initial encounter S16.1XXA [place] [id number] [place] [address] 46250- 4439 Dec, Major depressive disorder, recurrent, moderate F33.1 ; Generalized anxiety disorder F41.1 and Bipolar disorder with depression F31.30 [place] [id number] [place] [address] 39218- 0770 Dec, [place] [id number] [place] [address] 39860- 6418 Dec, [place] [address] [address]- 7867 Dec, [place] [id number] [place] [id number] Dec, [place] [address] [address] [place] [id number] [place] [address] [id number] Dec, Yeast infection B37.9 [place] [address] [id number] [place] [address] [id number] Dec, Pneumonia of both lungs due to methicillin resistant Staphylococcus aureus (MRSA), unspecified part of lung J15.212 and Benzodiazepine overdose, accidental or unintentional, subsequent encounter T42.4X1D [place] [address] [address] [place] [id number] [place] [address] 00746- 5175 Dec, [facility] [place] [id number] [place] [address] 92744- 5804 Dec, [facility] [place] [id number] [place] [address] 47721- 0732 Dec, Knee pain, left M25.562 and Edema, unspecified type R60.9 [facility] [place] [id number] [place] [address] 41815- 5551 Dec, [facility] [place] [id number] [place] [address] 91241- 5126 Dec, Anxiety disorder, unspecified F41.9 and Bipolar disorder, unspecified F31.9 [facility] [id number] [place] [address] 07495- 2209 Nov, Major depressive disorder, recurrent, moderate F33.1 ; Anxiety disorder, unspecified F41.9 and 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 [facility] [place] [id number] [place] [address] 86851- 6648 Nov, [facility] [place] [id number] [place] [address] 93147- 7051 Nov, Migraine without aura and without status migrainosus, not intractable G43.009 [facility] [place] [id number] [place] [address] 94067- 0910 Nov, Migraine G43.909 [facility] [place] [id number] [place] [address] 14374- 3764 Nov, [facility] [place] [id number] [place] [address] 83658- 5105 Nov, Major depressive disorder, recurrent, moderate F33.1 ; Anxiety disorder, unspecified F41.9 and 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 [facility] [place] [id number] [place] [address] 96642- 4781 Oct, Chronic constipation K59.09 and Obesity, unspecified obesity severity, unspecified obesity type E66.9 [facility] [id number] [place] [address] 88463- 6108 Oct, Obesity, unspecified obesity severity, unspecified obesity type E66.9 ; Chronic constipation K59.09 and Anxiety disorder, unspecified F41.9 [facility] [id number] [place] [address] 42458- 0766 Oct, [facility] [id number] [place] [address] 24593- 4980 Sep, Diabetes E11.9 ; Edema, unspecified type R60.9 ; Varicose vein of leg I83.90 and Obesity, unspecified obesity severity, unspecified obesity type E66.9 [facility] [id number] [place] [address] 79971- 5979 Sep, Edema, unspecified type R60.9 ; Diabetes E11.9 and Knee pain , left M25.562 [facility] [id number] [place] [address] 89212- 0215 Sep, [facility] [id number] [place] [address] 77202- 2905 Sep, [facility] [id number] [place] [address] 67239- 5902 Sep, Major depressive disorder, recurrent, moderate F33.1 ; Generalized anxiety disorder F41.1 and Bipolar disorder, unspecified F31.9 [facility] [id number] [place] [address] 62695- 0116 Aug, Chondromalacia of left knee M94.262 [facility] [id number] [place] [address] 10284- 6996 Aug, Major depressive disorder, recurrent, moderate F33.1 ; Anxiety disorder, unspecified F41.9 and 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 [facility] [id number] [place] [address] 41578- 8479 15 Aug, 2015 [facility] [place] [id number] [place] [address] 35400- 9707 06 Aug, 2015 Osteoarthritis of left knee M17.9 [facility] [place] [id number] [place] [address] 02177- 6747 Aug, [facility] [place] [id number] [place] [address] 39700- 2936 July, Major depressive disorder, recurrent, moderate F33.1 ; Anxiety disorder, unspecified F41.9 and 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 [facility] [place] [id number] [place] [address] 79345- 9451 July, [facility] [place] [id number] [place] [address] 14157- 5021 July, Chronic constipation K59.09 [facility] [place] [id number] [place] [address] 42434- 9270 Jun, [facility] [place] [id number] [place] [address] 96026- 9296 15 Jun, 2015 [facility] [place] [id number] [place] [address] 44803- 8485 14 Jun, 2015 Osteoarthritis of left knee M17.9 [facility] [place] [id number] [place] [address] 98692- 2440 Jun, [facility] [place] [id number] [place] [address] 56108- 9686 Jun, Generalized anxiety disorder F41.1 ; Bipolar disorder, unspecified F31.9 and Major depressive disorder, recurrent, moderate F33.1 [facility] [place] [id number] [place] [address] 16762- 6482 07 Jun, 2015 Migraine G43.909 [facility] [place] [id number] [place] [address] 99438- 8163 Jun, Left knee pain M25.562 ; Chronic constipation K59.09 ; Dry mouth R68.2 ; Yeast vaginitis B37.3 and Memory loss R41.3 [facility] [id number] [place] [address] 42435- 1763 Jun, [facility] [id number] [place] [address] 34226- 0671 May, [facility] [address] 25911- 8135 May, [facility] [address] 56214- 3165 May, [facility] [address] 51293- 0709 May, [facility] [id number] [place] [address] 97573- 5047 May, Acute bronchitis with COPD J44.0 ; Knee pain, left M25.562 and Encounter for tobacco use cessation counseling Z71.6 [facility] [id number] [place] [address] 62944- 0008 May, [facility] [id number] [place] [address] 81385- 4388 Apr, Diabetes E11.9 ; TMJ (sprain of temporomandibular joint) S03.4XXA ; Tobacco abuse Z72.0 ; Migraine G43.909 and Anxiety F41.9 [facility] [id number] [place] [address] 39715- 8272 Apr, Generalized anxiety disorder F41.1 and Bipolar disorder, unspecified F31.9 [address] [id number] [place] [address] 10225- 6262 Apr, Major depressive disorder, recurrent, moderate F33.1 ; Anxiety disorder, unspecified F41.9 and 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 [facility] [address] [id number] [address]- 7256 04 Apr, 2015 [facility] [place] [id number] [place] [address] 69798- 8567 Mar, [facility] [place] [id number] [place] [address] 93359- 7036 Feb, [facility] [place] [id number] [place] [address] 71060- 8176 Feb, Major depressive disorder, recurrent, moderate F33.1 ; Anxiety disorder, unspecified F41.9 and 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 [facility] [place] [id number] [place] [address] 06309- 6795 Feb, [facility] [place] [id number] [place] [address] 39664- 8275 Feb, Generalized anxiety disorder F41.1 and Bipolar disorder, unspecified F31.9 [facility] [place] [id number] [place] [address] 04494- 4133 30 Jan, 2015 [facility] [place] [id number] [place] [address] 35582- 7104 18 Jan, 2015 [facility] [place] [id number] [place] [address] 75336- 5137 Jan, Bipolar disorder, unspecified F31.9 and Generalized anxiety disorder F41.1 [facility] [place] [id number] [place] [address] 92481- 6623 14 Dec, 2014 [facility] [place] [id number] [place] [address] 21974- 1812 14 Dec, 2014 Bipolar disorder, unspecified F31.9 and Generalized anxiety disorder F41.1 [facility] [place] [id number] [place] [address] 85889- 7242 Dec, Generalized anxiety disorder F41.1 and Major depressive disorder, recurrent, moderate F33.1 [facility] [place] [id number] [place] [address] 41568- 9015 Oct, Headache 784.0 ; Cough 786.2 ; Vomiting and diarrhea 787.03 and Dysuria 788.1 [facility] [place] [id number] [place] [address] 49700- 3231 Aug, [facility] [place] [id number] [place] [address] 94055- 2197 Aug, Headache 784.0 and Shortness of breath 786.05 [facility] [place] [id number] [place] [address] 92687- 4127 Aug, [facility] [place] [id number] [place] [address] 485886- 1903 Aug, Migraine 346.90 [facility] [place] [id number] [place] [address] 12442- 0869 Jun, [facility] [place] [id number] [place] [address] 36908- 6916 Jun, [facility] [place] [id number] [place] [address] 07923- 8168 May, [facility] [place] [id number] [place] [address] 32924- 0754 May, [facility] [place] [id number] [place] [address] 62912- 9021 May, [facility] [place] [id number] [place] [address] 29689- 1422 May, [facility] [place] [id number] [place] [address] 01001- 4574 May, [facility] [place] [id number] [place] [address] 214309- 8555 May, [facility] [place] [id number] [place] [address] 56749- 5649 Apr, [facility] [place] [id number] [place] [address] 026998- 4106 Apr, [facility] [place] [facility] [address] [id number] [place] [address]- 3105 Apr, 2014 [facility] [place] [facility] [address] [id number] [place] [address]- 4099 Apr, 2014 [facility] [place] [facility] [address] [id number] [place] [address]- 9477 Apr, [facility] [place] [facility] [address] [id number] [place] [address]- 7683 Mar, [facility] [place] [facility] [address] [id number] [place] [address]- 5574 Mar, [facility] [place] [facility] [address] [id number] [place] [address]- 1912 Mar, [facility] [place] [facility] [address] [id number] [place] [address]- 8483 Mar, [facility] [place] [facility] [address] [id number] [place] [address]- 4824 Feb, [facility] [place] [facility] [address] [id number] [place] [address]- 0680 Feb, [facility] [place] [facility] [address] [id number] [place] [address]- 3411 18 Feb, 2014 [facility] [place] [facility] [address] [id number] [place] [address]- 3399 18 Feb, 2014 [facility] [place] [facility] [address] [id number] [address]- 5588 16 Feb, 2014 [facility] [place] [facility] [address] [id number] [place] [address]- 5591 16 Feb, 2014 [facility] [place] [facility] [address] [id number] [place] [address]- 3107 11 Feb, 2014 [facility] [place] [facility] [address] [id number] [place] [address]- 0612 Feb, [facility] [place] [facility] [address] [id number] [place] [address]- 5732 Feb, [facility] [place] [facility] [address] [id number] [place] [address]- 5431 Feb, [facility] [place] [facility] [address] [id number] [place] 5361 Feb, [facility] [place] [facility] [address] [id number] [place] [address]- 3805 Feb, [facility] [place] [facility] [address] [id number] [place] [address]- 1878 Jan, [facility] [place] [facility] [address] [id number] [place] [address]- 8082 Jan, [facility] [place] [facility] [address] [id number] [place] [address]- 9432 Dec, [facility] [place] [facility] [address] [id number] [place] [address]- 0683 Dec, [facility] [place] [facility] [address] [id number] [place] [address]- 3183 Dec, [facility] [place] [facility] [address] [id number] [place] [address]- 5406 Dec, [facility] [place] [facility] [address] [id number] [place] [address]- 7305 Dec, [facility] [place] [facility] [address] [id number] [place] [address]- 8403 Dec, [facility] [place] [facility] [address] [id number] [place] [address]- 0943 Sep, [facility] [place] [facility] [address] [id number] [place] [address]- 9939 Sep, [facility] [place] [facility] [address] [id number] [place] [address]- 0447 Sep, [facility] [place] [facility] [address] [id number] [place] [address]- 0334 Sep, [facility] [place] [facility] [address] [id number] [place] [address]- 2743 Sep, [facility] [place] [facility] [address] [id number] [place] [address]- 2077 Sep, [facility] [place] [facility] [address] [id number] [place] [address]- 6792 Sep, [facility] [place] [facility] [address] [id number] [place] [address]- 8843 Sep, [facility] [place] [facility] [address] [id number] [place] [address]- 8443 Sep, [facility] [place] [facility] [address] [id number] [place] [address]- 2634 Sep, [facility] [place] [facility] [address] [id number] [place] [address]- 4670 Aug, [facility] [place] [facility] [address] [id number] [place] [address]- 9710 Aug, [facility] [place] [facility] [address] [id number] [place] [address]- 5121 Aug, [facility] [place] [facility] [address] [id number] [place] [address]- 6720 Aug, [facility] [place] [facility] [address] [id number] [place] [address]- 3455 Aug, [facility] [place] [facility] [address] [id number] [place] [address]- 1834 Aug, [facility] [place] [facility] [address] [id number] [place] [address]- 7471 Aug, [facility] [place] [facility] [address] [id number] [place] [address]- 1707 Aug, [facility] [place] [facility] [address] [id number] [place] [address]- 5340 Aug, [facility] [place] [facility] [address] [id number] [place] [address]- 8271 Aug, [facility] [place] [facility] [address] [id number] [place] [address]- 0393 Aug, [facility] [place] [facility] [address] [id number] [place] [address]- 5797 Aug, [facility] [place] [facility] [address] [id number] [place] [address]- 5155 Aug, [facility] [place] [facility] [address] [id number] [place] [address]- 7604 July, [facility] [place] [facility] [address] [id number] [place] [address]- 4102 July, [facility] [place] [facility] [address] [id number] [place] [address]- 7247 July, [facility] [place] [facility] [address] [id number] [place] [address]- 3239 July, [facility] [place] [facility] [address] [id number] [place] [address]- 0940 July, [facility] [place] [facility] [address] [id number] [place] [address]- 4451 July, [facility] [place] [facility] [address] [id number] [place] [address]- 9487 July, [facility] [place] [facility] [address] [id number] [place] [address]- 1080 Jun, [facility] [place] [facility] [address] [id number] [place] [address]- 3626 Jun, [facility] [place] [facility] [address] [id number] [place] [address]- 3217 Jun, [facility] [place] [facility] [address] [id number] [place] [address]- 8854 Jun, [facility] [place] [facility] [address] [id number] [place] [address]- 0012 Jun, [facility] [place] [facility] [address] [id number] [place] [address]- 4544 08 Jun, 2013 [facility] [place] [facility] [address] [id number] [place] [address]- 7793 08 Jun, 2013 [facility] [place] [facility] [address] [id number] [place] [address]- 5936 17 May, 2013 [facility] [place] [facility] [address] [id number] [place] [address]- 6444 17 May, 2013 [facility] [place] [facility] [address] [id number] [place] [address]- 1367 14 May, 2013 [facility] [place] [facility] [address] [id number] [place] [address]- 1117 14 May, 2013 [facility] [place] [facility] [address] [id number] [place] [address]- 0829 13 May, 2013 [facility] [place] [facility] [address] [id number] [place] [address]- 0817 13 May, 2013 [facility] [place] [facility] [address] [id number] [place] [address]- 0028 10 May, 2013 [facility] [place] [facility] [address] [id number] [place] [address]- 8749 10 May, 2013 [facility] [place] [facility] [address] [id number] [place] [address]- 5393 07 May, 2013 [facility] [place] [facility] [address] [id number] [place] [address]- 2499 26 Apr, 2013 [facility] [place] [facility] [address] [id number] [place] [address]- 6792 26 Apr, 2013 [facility] [place] [facility] [address] [id number] [place] [address]- 1376 18 Apr, 2013 [facility] [place] [facility] [address] [id number] [place] [address]- 2796 15 Apr, 2013 [facility] [place] [facility] [address] [id number] [place] [address]- 5714 Apr, [facility] [place] [facility] [address] [id number] [place] [address]- 7397 Apr, [facility] [place] [facility] [address] [id number] [place] [address]- 8960 Apr, [facility] [place] [facility] [address] [facility] [id number] [place] [address]- 2826 Apr, [facility] [place] [facility] [address] [id number] [place] [address]- 6727 Apr, [facility] [place] [facility] [address] [id number] [place] [address]- 0305 Apr, [facility] [place] [facility] [address] [id number] [place] [address]- 5337 Mar, [facility] [place] [facility] [address] [id number] [place] [address]- 8948 Mar, [facility] [place] [facility] [address] [id number] [place] [address]- 3351 Mar, [facility] [place] [facility] [address] [id number] [place] [address]- 3870 Mar, [facility] [place] [facility] [address] [facility] [id number] [place] [address]- 2166 Mar, [facility] [place] [facility] [address] [id number], [place] [address] Mar, [facility] [place] [facility] [address] [id number], [place] [address] Mar, [facility] [place] [facility] [address] [id number] [place] [address] Mar, [facility] [place] [facility] [address] [id number] [place] [address] Feb, [facility] [place] [facility] [address] [id number] [place] [address] Feb, [facility] [place] [facility] [address] [id number] [place] [address] 18 Jan, 2013 [facility] [place] [facility] [address] [id number] [place] [address] 18 Jan, 2013 [facility] [place] [facility] [address] [id number] [place] [address]- [address] 15 Jan, 2013 [facility] [place] [facility] [address] [id number] [place] [address] 15 Jan, 2013 [facility] [place] [facility] [address] [id number] [place] [address]- [address] Jan, [facility] [place] [facility] [address] [id number] [place] [address]- [address] Jan, [facility] [place] [facility] [address] [id number] [place] [address]- [address] 05 Jan, 2013 [facility] [place] [facility] [address] [id number] [place] [address]- [address]151 05 Jan, 2013 [facility] [place] [facility] [address] [id number] [place] [address]- [address] Dec, [facility] [place] [facility] [address] [id number] [place] [address]- [address]098 10 Dec, 2012 [facility] [place] [facility] [address] [id number] [place] [address] 10 Dec, 2012 [facility] [place] [facility] [address] [id number] [place] [address]- [address] 20 Nov, 2012 [facility] [place] [facility] [address] [id number] [place] [address]- [address]40 13 Nov, 2012 [facility] [place] [facility] [address] [id number] [place] [address]- [address] 12 Nov, 2012 [facility] [place] [facility] [address] [id number] [place] [address]- 4735 09 Nov, 2012 [facility] [place] [facility] [address] [id number] [place] [address]- 130[address] Nov, [facility] [place] [facility] [address] [id number] [place] [address]- [address] Nov, [facility] [place] [facility] [address] [id number] [place] [address]- [address] Oct, [facility] [place] [facility] [address] [id number] [place] [address]- [address] Oct, [facility] [place] [facility] [address] [id number] [place] [address]- 136[address] Sep, [facility] [place] [facility] [address] [id number] [place] [address]- 245[address] Sep, [facility] [place] [facility] [address] [id number] [place] [address]- 2615 Sep, [facility] [place] [facility] [address] [id number] [place] [address]- 6715 Sep, [facility] [place] [facility] [address] [id number] [place] [address]- [address] Sep, [facility] [place] [facility] [address] [id number] [place] [address]- [address] Sep, [facility] [place] [facility] [address] [id number] [place] [address]- 134[address] Sep, [facility] [place] [facility] [address] [id number] [place] [address] Aug, [facility] [place] [facility] [address] [id number] [place] [address]- [address] 14 Aug, 2012 [facility] [place] [facility] [address] [id number] [place] [address]- [address] Aug, [facility] [place] [facility] [address] [id number] [place] [address]- [address] Aug, [facility] [place] [facility] [address] [id number] [place] [address] Aug, [facility] [place] [facility] [address] [id number] [place] [address] Aug, [facility] [address] [id number] [place] [address] July, [facility] [address] [id number] [place] [address] July, [facility] [address] [id number] [place] [address] July, [facility] [address] [id number] [place] [address] 269[address] July, [facility] [address] [id number] [place] [address] July, [facility] [address] [id number] [place] [address]- [address] July, [facility] [address] [id number] [place] [address] Jun, [facility] [address] [id number] [place] [address]- [address] Jun, [facility] [facility] [address] [id number] [place] [address] Jun, [facility] [address] [id number] [place] [address] Jun, [facility] [address] [id number] [place] [address] Jun, [facility] [address] [id number] [place] [address] Jun, [facility] [place] [facility] [address] [id number] [place] [address] 86[address] Jun, [facility] [place] [facility] [address] [id number] [place] [address] May, [facility] [address] [id number] [place] [address] 7099 May, [facility] [address] [id number] [place] [address] 2548 26 Apr, 2012 [facility] [address] [id number] [place] [address] 2546 Apr, 2012 [facility] [place] [facility] [address] [id number] [place] [address] 2546 18 Apr, 2012 [facility] [place] [facility] [address] [id number] [place] [address] 2546 18 Apr, 2012 [facility] [address] [id number] [place] [address] 2542 12 Apr, 2012 [facility] [place] [facility] [address] [id number] [place] [address] 2546 08 Apr, 2012 [facility] [place] [facility] [address] [id number] [place] [address]- 6469 07 Apr, 2012 [facility] [place] [facility] [address] [id number] [place] [address]- 0627 07 Apr, 2012 [facility] [place] [facility] [address] [id number] [place] [address] 06 Apr, 2012 [facility] [place] [facility] [address] [id number] [place] [address]- 1795 06 Apr, 2012 [facility] [place] [facility] [address] [id number] [place] [address] 2399 Apr, [facility] [place] [facility] [address] [id number] [place] [address] 2547 Mar, [facility] [place] [facility] [address] [id number] [place] [address] 2546 Mar, [facility] [place] [facility] [address] [id number] [place] [address]- 2548 Mar, [facility] [place] [facility] [address] [id number] [place] [address]- 2540 Mar, [facility] [place] [facility] [address] [id number] [place] [address]- 0750 Mar, [facility] [address] [id number] [place] [address] 8331 Mar, [facility] [address] [id number] [place] [address]- 6796 15 Mar, 2012 [facility] [address] [id number] [place] [address] 2086 Mar, [facility] [address] [id number] [place] [address] 6562 Mar, [facility] [address] [id number] [place] [address] 58[address] Mar, [facility] [address] [id number] [place] [address] 6060 Mar, [facility] [address] [id number] [place] [address]- 8783 Mar, [facility] [address] [id number] [place] [address]- 2469 Mar, [facility] [address] [id number] [place] [address]- 2837 Feb, [facility] [address] [id number] [place] [address] 2540 Feb, [facility] [address] [id number] [place] [address] 5046 18 Feb, 2012 [facility] [address] [id number] [place] [address] 4891 18 Feb, 2012 [facility] [place] [facility] [address] [id number] [place] [address]- 5233 Feb, [facility] [address] [id number] [place] [address] 2541 Feb, [facility] [address] [id number] [place] [address] 1326 Feb, [facility] [place] [facility] [address] [id number] [place] [address]- 7430 Feb, [facility] [place] [facility] [address] [id number] [place] [address]- 2164 Feb, [facility] [place] [facility] [address] [id number] [place] [address] Feb, [facility] [place] [facility] [address] [id number] [place] [address]- 7477 Feb, [facility] [place] [facility] [address] [id number] [place] [address]- 0452 Feb, [facility] [place] [facility] [address] [id number] [place] [address] 3288 Feb, [facility] [place] [facility] [address] [id number] [place] [address]- 5117 Feb, [facility] [place] [facility] [address] [id number] [place] [address]- 2473 Feb, [facility] [place] [facility] [address] [id number] [place] [address]- 2559 Jan, [facility] [place] [facility] [address] [id number] [place] [address]- 0464 Jan, [facility] [place] [facility] [address] [id number] [place] [address]- 7493 Jan, [facility] [place] [facility] [address] [id number] [place] [address]- 5455 Jan, [facility] [place] [facility] [address] [id number] [place] [address]- 4325 Dec, [facility] [place] [facility] [address] [id number] [place] [address]- 9889 Dec, [facility] [place] [facility] [address] [id number] [place] [address] 6433 Dec, [facility] [place] [facility] [address] [id number], [place] [address] Dec, [facility] [place] [facility] [address] [id number] [place] [address]- 2145 Dec, [facility] [place] [facility] [address] [id number] [place] [address]- 4296 Dec, [facility] [place] [facility] [address] [id number] [place] [address]- 6776 Dec, [facility] [place] [facility] [address] [id number] [place] [address]- 0939 16 Dec, 2011 [facility] [place] [facility] [address] [id number] [place] [address]- 0511 Dec, [facility] [place] [facility] [address] [id number] [place] [address]- 4389 04 Dec, 2011 [facility] [place] [facility] [address] [id number] [place] [address]- 6992 03 Dec, 2011 [facility] [place] [facility] [address] [id number] [place] [address]- 5336 25 Sep2011 [facility] [place] [facility] [address] [id number] [place] [address]- 3977 24 Sep, 2011 [facility] [place] [facility] [address] [id number] [place] [address]- 2887 20 Sep, 2011 [facility] [place] [facility] [address] [id number], [place] [address]- [address] 19 Sep, 2011 [facility] [place] [facility] [address] [id number], [place] [address] 2547 17 Sep, 2011 [facility] [place] [facility] [address] [id number] [place] [address] 2541 16 Sep, 2011 [facility] [place] [facility] [address] [id number], [place] [address]- 2540 14 Sep, 2011 [facility] [place] [facility] [address] [id number] [place] [address]- 2549 13 Sep, 2011 [facility] [place] [facility] [address] [id number] [place] [address]- 9632 12 Sep, 2011 [facility] [place] [facility] [address] [id number] [place] [address]- 7107 07 Sep, 2011 [facility] [place] [facility] [address] [id number] [place] [address]- 0386 06 Sep, 2011 [facility] [place] [facility] [address] [id number] [place] [address]- 7486 06 Sep, 2011 [facility] [place] [facility] [address] [id number] [place] [address]- 3585 05 Nov, 2011 [facility] [place] [facility] [address] [id number] [place] [address]- 6720 29 Oct, 2011 [facility] [place] [facility] [address] [id number] [place] [address]- 8766 29 Oct, 2011 [facility] [place] [facility] [address] [id number] [place] [address]- 9561 Oct, [facility] [place] [facility] [address] [id number] [place] [address]- 9498 Oct, [facility] [place] [facility] [address] [id number] [place] [address]- 7047 Oct, [facility] [place] [facility] [address] [id number] [place] [address]- 1639 Oct, [facility] [place] [facility] [address] [id number] [place] [address]- 2549 20 Oct, 2011 [facility] [place] [facility] [address] [id number] [place] [address]- 2542 16 Oct, 2011 [facility] [place] [facility] [address] [id number] [place] [address]- 5527 15 Oct, 2011 [facility] [place] [facility] [address] [id number] [place] [address]- 2546 13 Oct, 2011 [facility] [place] [facility] [address] [id number] [place] [address]- 5703 Oct, [facility] [place] [facility] [address] [id number] [place] [address]- 2839 Sep, [facility] [place] [facility] [address] [id number] [place] [address]- 4610 Sep, [facility] [place] [facility] [address] [id number] [place] [address]- 9997 Sep, [facility] [place] [facility] [address] [id number] [place] [address]- 7806 Sep, [facility] [place] [facility] [address] [id number] [place] [address]- 5320 Sep, [facility] [place] [facility] [address] [id number] [place] [address]- 0637 Sep, [facility] [place] [facility] [address] [id number] [place] [address]- 8619 Aug, [facility] [place] [facility] [address] [id number] [place] [address]- 7885 July, [facility] [place] [facility] [address] [id number] [place] [address]- 0704 July, [facility] [place] [facility] [address] [id number] [place] [address]- 5548 Jun, [facility] [place] [facility] [address] [id number] [place] [address]- 4670 Jun, [facility] [place] [facility] [address] [id number] [place] [address]- 7424 Jun, [facility] [place] [facility] [address] [id number] [place] [address]- 9731 Jun, [facility] [place] [facility] [address] [id number] [place] [address]- 3108 Jun, [facility] [place] [facility] [address] [id number] [place] [address]- 0519 Jun, [facility] [place] [facility] [address] [id number] [place] [address]- 6388 09 Jun, 2011 [facility] [address] [id number] [place] [address]- 6226 08 Jun, 2011 [facility] [place] [facility] [address] [id number] [place] Jun, [facility] [place] [facility] [address] [id number] [place] [address]- 1716 Jun, [facility] [place] [facility] [address] [id number] [place] [address]- 5404 Jun, [facility] [place] [facility] [address] [id number] [place] [address]- 8059 19 May, 2011 [facility] [place] [facility] [address] [id number] [place] [address]- 2639 16 May, 2011 [facility] [address] [id number] [place] [address]- 5738 14 May, 2011 [facility] [place] [facility] [address] [id number] [place] [address]- 4561 06 May, 2011 [facility] [place] [facility] [address] [id number] [place] [address]- 8700 Apr, [facility] [place] [facility] [address] [id number] [place] [address]- 2769 Apr, [facility] [place] [facility] [id number] [place] [address]- 3926 27 Apr, 2011 [facility] [place] [facility] [address] [id number] [place] [address]- 1359 Apr, [facility] [place] [facility] [address] [id number] [place] [address]- 9416 Apr, [facility] [place] [facility] [address] [id number] [place] [address]- 4266 Apr, [facility] [place] [facility] [address] [id number] [place] [address]- 1777 Apr, [facility] [address] [id number] [place] [address]- 1160 Apr, [facility] [place] [facility] [address] [id number] [place] [address]- 1446 Mar, [facility] [place] [facility] [address] [id number] [place] [address]- 7183 Mar, [facility] [place] [facility] [address] [id number] [place] [address]- 3893 Mar, [facility] [place] [facility] [address] [id number] [place] [address]- 0968 Mar, [facility] [place] [facility] [address] [id number] [place] [address]- 2492 Mar, [facility] [place] [facility] [address] [id number] [place] [address]- 5147 Mar, [facility] [place] [facility] [address] [id number] [place] [address]- 8336 Mar, [facility] [place] [facility] [address] [id number] [place] [address]- 5038 Mar, [facility] [place] [facility] [address] [id number] [place] [address]- 4878 Mar, [facility] [place] [facility] [address] [id number] [place] [address]- 1822 Mar, [facility] [place] [facility] [address] [id number] [place] [address]- 7331 Mar, [facility] [place] [facility] [address] [id number] [place] [address]- 9996 Mar, [facility] [place] [facility] [address] [id number] [place] [address]- 1996 Mar, [facility] [place] [facility] [address] [id number] [place] [address]- 4365 Mar, [facility] [place] [facility] [address] [id number] [place] [address]- 8989 Mar, [facility] [place] [facility] [address] [id number] [place] [address]- 2264 Mar, [facility] [place] [facility] [address] [id number] [place] [address]- 2481 Feb, [facility] [place] [facility] [address] [id number] [place] [address] Feb, [facility] [place] [facility] [address] [id number] [place] [address]- 6079 Feb, [facility] [place] [facility] [address] [id number] [place] [address]- 8968 Jan, [facility] [place] [facility] [address] [id number] [place] [address]- 1478 Jan, [facility] [place] [facility] [address] [id number] [place] [address]- 7490 Jan, [facility] [place] [facility] [address] [id number] [place] [address]- 0964 Dec, [facility] [place] [facility] [address] [id number] [place] [address]- 9080 Dec, [facility] [place] [facility] [address] [id number] [place] [address]- 2756 Nov, [facility] [place] [facility] [address] [id number] [place] [address]- 8475 Oct, [facility] [place] [facility] [address] [id number] [place] [address]- 4964 Oct, [facility] [place] [facility] [address] [id number] [place] [address]- 3343 Oct, [facility] [place] [facility] [address] [id number] [place] [address]- 5803 Sep, [facility] [place] [facility] [address] [id number] [place] [address]- 4324 Apr, [facility] [place] [facility] [address] [facility] [id number] [place] [address]- 3407 Feb, [facility] [address] [facility] [id number] [id number] [address]47 Jan, IMMUNIZATIONS No Known Immunizations SOCIAL HISTORY Never Assessed REASON FOR VISIT Tooth abscess x 2 weeks. Pt has a dentist appt tomorrow morning at [facility] PLAN OF CARE Activity Details Follow Up Regular appt Reason: VITAL SIGNS Height 70 in 2018-01-19 Weight 206.1 lbs 2018-01-19 Temperature 97.8 degrees Fahrenheit 2018-01-19 Heart Rate 96 bpm 2018-01-19 Respiratory Rate 24 2018-01-19 BMI 29.57 kg/m2 2018-01-19 Blood pressure systolic 170 mmHg 2018-01-19 Blood pressure diastolic 90 mmHg 2018-01-19 MEDICATIONS Medication Instructions Dosage Frequency Start Date End Date Duration Status Oxygen 2Lt by inhalation route 24 hours Active Lasix 20 MG Orally Once a day 1 tablet 24h Active Ibuprofen Active Spiriva HandiHaler 18 MCG Inhalation Once a day 1 capsule 24h Active Ipratropium-Albuterol 0.5-2.5 (3) mg/3ml Inhalation Four times a day 3 ml as needed for Shortness of breath 6h Active Metoprolol Tartrate 25 MG Orally 2 times a day 1/2 tablet 12h Active Glimepiride 1 MG Orally Once a day on the days you are taking the prednsone 1 tablet with breakfast or the first main meal of the day Mar, 30 day(s) Not-Taking PredniSONE 5 mg Orally Once a day 4 tablets daily x7days, then 3 tablets [id number] then 2 tablets daily 24h Dec, Active Ventolin HFA 108 (90 Base) MCG/ACT Inhalation every 4 hours 2 puffs as needed for short of breath or wheeze 4h Active Amoxicillin 500 mg Orally every 8 hrs 1 tablet 8h Jan, Jan, 5 days Active Tramadol HCl 50 mg Orally every 6 hrs, prn pain 1-2 tabs Jan, Active Advair Diskus 500-50 MCG/DOSE Inhalation Twice a day 1 puff 12h Dec, Active Tylenol Active Entresto 24-26 MG Orally Twice a day 1 tablet 12h Active Aspir-81 81 MG Orally Once a day 1 tablet 24h Active Trulicity 0.75 MG/0.5ML Subcutaneous once weekly Inject 0.5 ml Jun, 90 days Not-Taking RESULTS No Results PROCEDURES No Known [...] Hospitalization History for surgeries Hospitalization History AMS 04/10 Benzos OD, pneumonia MRSA, [facility], Hypokalemia-- [facility] 12/20/2015 Hospitalization History COPD exacerbation, Asthma-[facility] 09/21/16 Hospitalization History COPD-[facility] 12/30/2016 Hospitalization History [facility] for inpatient-last around 2006 or so. Hospitalization History for COPD x2 Mar 2017 Hospitalization History Upper GI bleed at apr 2017 Hospitalization History [facility]- COPD Exacerbation, diarrhea 05/23/2017 Hospitalization History COPD exacerbation-[facility] 06/13/17 Hospitalization History CHF 09/09/2017 Hospitalization History COPD-UTI--[facility] 11/2017
--- OUTSIDE RECORDS SUMMARY | 2018-02-18 00:23 | XMS REPORT ---
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 Active 92714283 Problem Chronic bronchitis, unspecified chronic bronchitis type J42 Active 29634774 Problem COPD exacerbation J44.1 Active 259816831 Problem Examination of eyes and vision V72.0 Active 436785587 Problem Acute on chronic systolic congestive heart failure I50.23 Active 793839571 Problem Intractable cyclical vomiting with nausea G43.A1 Active 29113924 Problem Diabetes E11.9 Active 990620457 Problem Chronic obstructive pulmonary disease, unspecified COPD type J44.9 Active 15632822 Problem Anxiety F41.9 Active 16245460 Problem Migraine G43.909 Active 80631975 Problem TMJ (sprain of temporomandibular joint) S03.4XXA Active 34647804 Problem 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 Active Problem Tobacco abuse Z72.0 Active 85824031 Problem Bipolar disorder, unspecified F31.9 Active 29047785 Problem Bipolar disorder with depression F31.30 Active 66839785 Problem Chronic constipation K59.09 Active 366237389 Problem Generalized anxiety disorder F41.1 Active 86236563 Problem Memory loss R41.3 Active 51236280 Problem Other emphysema J43.8 Active 26196629 ALLERGIES No Information ENCOUNTERS Encounter Location Date Diagnosis [facility] [address] [facility] [id number] [address] Feb, [facility] [address] [address] Jan, COPD exacerbation J44.1 [facility] [address], [place] [address] 2639 Jan, Dental abscess K04.7 [facility] [id number] [place] [address] 14919- 0050 Jan, COPD exacerbation J44.1 and Acute on chronic systolic congestive heart failure I50.23 [facility] [id number] [place] [address] 26612- 9632 Dec, [facility] [id number] [place] [address] 25745- 3760 Dec, [facility] [id number] [place] [address] 67139- 5314 Nov, [facility] [id number] [place] [address] 22695- 2155 Nov, COPD with exacerbation J44.1 and Urinary tract infection without hematuria, site unspecified N39.0 [facility] [address] [place] [address] 75068- 2393 Nov, Chronic obstructive pulmonary disease, unspecified COPD type J44.9 [facility] [id number] [place] [address] 25147- 3287 Oct, [facility] [id number] [place] [address] 71346- 3781 Oct, [facility] [id number] [place] [address] 29915- 5373 Oct, [facility] [address] [place] [address] 60061- 8691 Oct, [facility] [id number] [place] [address] 17398- 8195 Oct, Thrush B37.0 [facility] [id number] [place] [address] 73367- 1262 Sep, COPD with exacerbation J44.1 and Anxiety F41.9 [facility] [address], [place] [address] 1437 Sep, [facility] [address] [address] 3338 Sep, [facility] [address], [place] [address]- 6361 Sep, [facility] [id number] [place] [address] 47495- 0216 Sep, Acute congestive heart failure, unspecified heart failure type I50.9 and Anxiety disorder, unspecified F41.9 [facility] [id number] [place] [address] 53646- 0387 Sep, Heart failure, unspecified HF chronicity, unspecified heart failure type I50.9 [facility] [address], [place] [address]- 0391 Sep, [facility] [address], [place] [address]- 6897 Aug, Chronic obstructive pulmonary disease with acute exacerbation J44.1 [facility] [address], [place] [address] 1639 Aug, [facility] [address], [place] [address] 3707 Aug, [facility] [address], [place] [address]- 0999 July, [facility] [address], [place] [address]- 0986 July, [facility] [address], [place] [address] 5508 July, Diabetes E11.9 and Chronic obstructive pulmonary disease with acute exacerbation J44.1 [facility] [address], [place] [address]- 8379 Jun, Chronic obstructive pulmonary disease with acute exacerbation J44.1 ; Diabetes E11.9 and Tobacco abuse Z72.0 [facility] [id number] [place] [address] 07242- 0860 Jun, [facility] [address] 36301- 9398 Jun, [facility] [address] 30147- 5465 May, [facility] [address] 96884- 1613 May, [facility] [address] 02659 -3604 17 May, 2017 [facility] [address] 51157- 3624 16 May, 2017 [place] [address] 08151- 2171 15 May, 2017 [facility] [address] 09790- 1596 14 May, 2017 Diarrhea, unspecified type R19.7 and Intractable cyclical vomiting with nausea G43.A1 [place] [id number] [place] [address] 89470- 9173 May, [facility] [facility] [id number] [place] [address] 20226- 4586 May, [facility] [id number] [place] [address] 48863- 5960 Apr, COPD exacerbation J44.1 ; Esophageal candidiasis B37.81 ; Other acute gastritis with hemorrhage K29.01 and Acute posthemorrhagic anemia D62 [place] [address] 67107- 6480 Apr, Viral illness B34.9 and COPD exacerbation J44.1 [facility] [address] 0[address] -3254 Apr, Shortness of breath R06.02 and Pneumonia of both lower lobes due to infectious organism J18.9 [facility] [id number] [place] [address] 80651 -6031 Mar, COPD with acute exacerbation J44.1 [facility] [id number] [place] [address] 28184- 0963 Mar, Chronic obstructive pulmonary disease with acute exacerbation J44.1 and Diabetes E11.9 [facility] [id number] [place] [address] 19755- 1686 Mar, [facility] [id number] [place] [address] 02406- 6088 Mar, [facility] [id number] [place] [address] 53665 -6613 Mar, COPD exacerbation J44.1 [place] [id number] [place] [address] 84483- 8015 Mar, [place] [facility] [id number] [place] [address] 80009- 7241 Mar, Migraine G43.909 ; Hypokalemia E87.6 and Type 2 diabetes mellitus without complications E11.9 [place] [facility] [address], [place] [address]- 8797 Feb, [place] [id number] [place] [address] 76994- 3224 Feb, [place] [id number] [place] [address] 51328- 0700 Feb, Methamphetamine use disorder, moderate, 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 ; Major depressive disorder, recurrent, moderate F33.1 ; Anxiety disorder, unspecified F41.9 and Tobacco abuse Z72.0 [place] [address] [place] [address] 46264- 3772 Jan, Major depressive disorder, recurrent, moderate F33.1 [place] [id number] [place] [address] 37213- 7442 16 Jan, 2017 [facility] [id number] [place] [address] 47166- 2854 14 Jan, 2017 [facility] [id number] [place] [address] 43833- 5336 Jan, Major depressive disorder, recurrent, moderate F33.1 [facility] [address] 26314- 1762 13 Jan, 2017 Major depressive disorder, recurrent, moderate F33.1 ; Anxiety disorder, unspecified F41.9 ; Methamphetamine use disorder, moderate, 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 and Tobacco abuse Z72.0 [facility] [id number] [place] [address] 04662- 4439 07 Jan, 2017 [facility] [id number] [place] [address] 46655- 0695 Jan, Chronic obstructive pulmonary disease with acute exacerbation J44.1 and Diabetes E11.9 [facility] [id number] [place] [address] 09327- 6530 06 Jan, 2017 [facility] [address] 30078- 1298 Jan, [facility] [id number] [place] [address] 59025- 9971 Dec, Acute respiratory failure with hypoxia J96.01 ; Chronic bronchitis, unspecified chronic bronchitis type J42 and Tobacco use Z72.0 [facility] [address] [place] [address] 84209- 2765 Dec, [facility] [address] [place] [address] [id number] Nov, Dental caries K02.9 and Dental examination Z01.20 [facility] [address] [place] [address] 47886- 0813 05 Nov, 2016 Major depressive disorder, recurrent, moderate F33.1 ; Anxiety disorder, unspecified F41.9 and Other 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 [facility] [address] [address] Oct, Dental examination Z01.20 [facility] [address], [place] [address]- 3437 Oct, [facility] [id number] [place] [address] 18124- 7908 Oct, Diabetes E11.9 and Thrush B37.0 [facility] [id number] [place] [address] 92985- 8948 Oct, [facility] [id number] [place] [address] 52754- 5748 Oct, [facility] [id number] [place] [address] 51821- 5803 Oct, [facility] [id number] [place] [address] 50168- 2236 Sep, Major depressive disorder, recurrent, moderate F33.1 ; Anxiety disorder, unspecified F41.9 and Bipolar disorder, unspecified F31.9 [facility] [address] [place] [address] 99264- 7000 Sep, Acute exacerbation of chronic obstructive pulmonary disease (COPD) J44.1 and Migraine G43.909 [facility] [address] [place] [address] 23089- 7630 Sep, [facility] [id number] [place] [address] [id number] Sep, [facility] [address] [place] [address] 09634- 5744 Sep, Acute exacerbation of chronic obstructive pulmonary disease (COPD) J44.1 [facility] [address], [place] [address]6449 Sep, Acute exacerbation of chronic obstructive pulmonary disease (COPD) J44.1 [facility] [id number] [place] [address] 97591- 8550 Aug, [facility] [address] 12800- 3952 Aug, Major depressive disorder, recurrent, moderate F33.1 ; Anxiety disorder, unspecified F41.9 and 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 [facility] [address] 63348- 1426 19 Aug, 2016 Wheezing R06.2 ; Non morbid obesity due to excess calories E66.09 ; Migraine without aura and without status migrainosus, not intractable G43.009 and Tobacco abuse Z72.0 [facility] [id number] [place] [address] [id number] 14 Aug, 2016 Encounter for dental examination Z01.20 [place] [address] 70161- 5348 02 Aug, 2016 Major depressive disorder, recurrent, moderate F33.1 ; Anxiety disorder, unspecified F41.9 and 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 [place] [id number] [place] [address] 09630- 5099 July, [place] [id number] [place] [address] 31616- 0964 July, [place] [id number] [place] [address] 22550- 3132 July, [facility] [id number] [place] [address] 80980- 6715 July, Diabetes E11.9 [facility] [address] 01644- 0775 Jun, Major depressive disorder, recurrent, moderate F33.1 [facility] [id number] [place] [address] 69727- 0555 Jun, Major depressive disorder, recurrent, moderate F33.1 ; Other stimulant dependence with unspecified stimulant-induced disorder F15.29 ; Generalized anxiety disorder F41.1 and Bipolar disorder, unspecified F31.9 [facility] [address] 12194- 7468 Jun, Diabetes E11.9 ; Migraine G43.909 ; Thrush B37.0 and Wheezing R06.2 [facility] [address] [id number] Jun, Dental examination Z01.20 [facility] [address] 43940- 7798 Jun, [facility] [address] 96614- 2834 Jun, Major depressive disorder, recurrent, moderate F33.1 ; Anxiety disorder, unspecified F41.9 and 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 [facility] [address] 07137- 0183 Jun, [facility] [id number] [place] [address] 69941- 2535 Jun, Wheezing R06.2 [facility] [address] [id number] Jun, Dental caries K02.9 [facility] [address] 93221- 8609 Jun, Major depressive disorder, recurrent, moderate F33.1 ; Anxiety disorder, unspecified F41.9 and 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 [facility] [address] 09136- 1604 Jun, RLQ abdominal pain R10.31 ; Diabetes E11.9 ; Obesity, unspecified obesity severity, unspecified obesity type E66.9 ; Wheezing R06.2 and Abnormal urinalysis R82.90 [facility] [address] 60704- 1317 May, [place] [address], [place] [address]- 8757 May, Well woman exam Z01.419 ; Breast cancer screening Z12.39 ; Cervical cancer screening Z12.4 ; Urinary frequency R35.0 ; Edema, unspecified type R60.9 and Chronic constipation K59.09 [facility] [address] [place] [address] 54429- 0212 May, Major depressive disorder, recurrent, moderate F33.1 ; Anxiety disorder, unspecified F41.9 and 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 [facility] [address] [place] [address] [phone] May, Dental examination Z01.20 [facility] [id number] [place] [address] 07546- 7662 May, [facility] [id number] [place] [address] 88828- 7465 May, [facility] [address] [place] [address] 32509- 9033 May, Chronic constipation K59.09 [facility] [id number] [place] [address] 33428- 8446 Apr, [facility] [address] [place] [address] 69076- 0404 Apr, Major depressive disorder, recurrent, moderate F33.1 ; Anxiety disorder, unspecified F41.9 and 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 [facility] [address] [place] [address] 86162- 6195 Apr, [facility] [id number] [place] [address] 73880- 2446 Mar, Major depressive disorder, recurrent, moderate F33.1 [facility] [address] [place] [address] 21431- 6731 Mar, Major depressive disorder, recurrent, moderate F33.1 ; Generalized anxiety disorder F41.1 and Bipolar I disorder, most recent episode depressed with anxious distress F31.30 [place] [id number] [place] [address] 98847- 5179 Mar, Diabetes E11.9 ; Non morbid obesity due to excess calories E66.09 ; Breast cancer screening Z12.39 and Encounter for immunization Z23 [place] [address] [id number] [place] [address] 72576- 7647 Mar, Major depressive disorder, recurrent, moderate F33.1 ; Anxiety disorder, unspecified F41.9 and Other 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 [place] [address] [id number] [place] [address] 90421- 4250 Mar, [place] [address] [id number] [place] [address] 86572- 0201 Feb, Major depressive disorder, recurrent, moderate F33.1 ; Anxiety disorder, unspecified F41.9 and 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 [place] [id number] [place] [address] 32952- 1844 Feb, [place] [address] [id number] [place] [address] 94602- 5433 Feb, [place] [id number] [place] [address] 89276- 4997 Jan, Major depressive disorder, recurrent, moderate F33.1 ; Generalized anxiety disorder F41.1 and Bipolar disorder, current episode depressed, severe, without psychotic features F31.4 [place] [address] [place] [address] 64294- 7155 18 Jan, 2016 Major depressive disorder, recurrent, moderate F33.1 ; Anxiety disorder, unspecified F41.9 and Other 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 [place] [address], [place] [address]- 9935 16 Jan, 2016 Bronchitis J40 [place] [address], [place] [address]- 9091 Jan, [facility] [address] [facility] [id number] [address]- 9398 Jan, [facility] [address], [place] [address]- 2721 Jan, Elbow injury, right, initial encounter S59.901A ; Multiple contusions T14.8 and Cervical strain, acute, initial encounter S16.1XXA [facility] [address] [facility] [id number] [address]- 3220 Dec, Major depressive disorder, recurrent, moderate F33.1 ; Generalized anxiety disorder F41.1 and Bipolar disorder with depression F31.30 [facility] [address], [place] [address]- 7501 Dec, [facility] [address], [place] [address]- 3102 Dec, [facility] [address], [place] [address]- 1845 Dec, [facility] [address], [place] [address]- 1537 Dec, [facility] [address], [place] [address]- 3850 Dec, Yeast infection B37.9 [facility] [id number], [place] [address]- 5903 Dec, Pneumonia of both lungs due to methicillin resistant Staphylococcus aureus (MRSA), unspecified part of lung J15.212 and Benzodiazepine overdose, accidental or unintentional, subsequent encounter T42.4X1D [facility] [address], [place] [address]- 2550 Dec, [facility] [id number], [place] [address]- 6350 Dec, [facility] [id number] [place] [address] 54469- 3231 Dec, Knee pain, left M25.562 and Edema, unspecified type R60.9 [place] [id number] [place] 6044 Dec, [place] [id number] [place] 8338 Dec, Anxiety disorder, unspecified F41.9 and Bipolar disorder, unspecified F31.9 [place] [id number] [place] 4967 Nov, Major depressive disorder, recurrent, moderate F33.1 ; Anxiety disorder, unspecified F41.9 and 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 [place] [id number] [place] [address] 95135- 7910 Nov, [place] [id number] [place] [address] 82017- 5966 Nov, Migraine without aura and without status migrainosus, not intractable G43.009 [place] [id number] [place] [address] 80421- 9421 Nov, Migraine G43.909 [place] [id number] [place] [address] 13781- 6315 Nov, [place] [id number] [place] 8019 Nov, Major depressive disorder, recurrent, moderate F33.1 ; Anxiety disorder, unspecified F41.9 and 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 [place] [id number] [place] [address] 13541- 7099 Oct, Chronic constipation K59.09 and Obesity, unspecified obesity severity, unspecified obesity type E66.9 [place] [id number] [place] [address] 80676- 4223 Oct, Obesity, unspecified obesity severity, unspecified obesity type E66.9 ; Chronic constipation K59.09 and Anxiety disorder, unspecified F41.9 [place] [id number] [place] [address] 22544- 2133 Oct, [place] [id number] [place] [address] 96097- 0604 Sep, Diabetes E11.9 ; Edema, unspecified type R60.9 ; Varicose vein of leg I83.90 and Obesity, unspecified obesity severity, unspecified obesity type E66.9 [place] [id number] [place] [address] 32682- 0402 Sep, Edema, unspecified type R60.9 ; Diabetes E11.9 and Knee pain , left M25.562 [place] [id number] [place] [address] 03489- 3959 Sep, [place] [id number] [place] [address] 04141- 0453 Sep, [place] [id number] [place] [address] 96709- 7948 Sep, Major depressive disorder, recurrent, moderate F33.1 ; Generalized anxiety disorder F41.1 and Bipolar disorder, unspecified F31.9 [place] [address] [place] [address] 20973- 7428 Aug, Chondromalacia of left knee M94.262 [facility] [id number] [place] [address] 38621- 7169 Aug, Major depressive disorder, recurrent, moderate F33.1 ; Anxiety disorder, unspecified F41.9 and 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 [facility] [id number] [place] [address] 00442- 6563 Aug, [facility] [id number] [place] [address] 22775- 5422 Aug, Osteoarthritis of left knee M17.9 [facility] [id number] [place] [address]- 0162 Aug, [facility] [id number] [place] [address] 77784- 9528 July, Major depressive disorder, recurrent, moderate F33.1 ; Anxiety disorder, unspecified F41.9 and 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 [facility] [id number] [place] [address] 38954- 8642 July, [facility] [address] 28312- 7126 July, Chronic constipation K59.09 [facility] [address] 72816- 7028 Jun, [facility] [id number] [place] [address] 72036- 1010 Jun, [facility] [address] 32159- 0318 14 Jun, 2015 Osteoarthritis of left knee M17.9 [facility] [id number] [place] [address] 93233- 5681 Jun, [facility] [id number] [place] [address] 22936- 6459 Jun, Generalized anxiety disorder F41.1 ; Bipolar disorder, unspecified F31.9 and Major depressive disorder, recurrent, moderate F33.1 [facility] [id number] [place] [address] 67191- 9326 Jun, Migraine G43.909 [facility] [id number] [place] [address] 46344- 4767 07 Jun, 2015 Left knee pain M25.562 ; Chronic constipation K59.09 ; Dry mouth R68.2 ; Yeast vaginitis B37.3 and Memory loss R41.3 [facility] [id number] [place] [address] 07328- 1914 05 Jun, 2015 [facility] [id number] [place] [address] 56139- 4535 May, [facility] [id number] [place] [address] 84591- 7280 May, [facility] [id number] [place] [address] 31811- 8710 May, [facility] [id number] [place] [address] 37942- 4463 May, [facility] [id number] [place] [address] 73158- 1786 May, Acute bronchitis with COPD J44.0 ; Knee pain, left M25.562 and Encounter for tobacco use cessation counseling Z71.6 [facility] [id number] [place] [address] 55102- 6943 May, [facility] [id number] [place] [address] 51517- 8462 Apr, Diabetes E11.9 ; TMJ (sprain of temporomandibular joint) S03.4XXA ; Tobacco abuse Z72.0 ; Migraine G43.909 and Anxiety F41.9 [facility] [id number] [place] [address] 66246- 4847 Apr, Generalized anxiety disorder F41.1 and Bipolar disorder, unspecified F31.9 [facility] [id number] [place] [address] 39359- 2030 Apr, Major depressive disorder, recurrent, moderate F33.1 ; Anxiety disorder, unspecified F41.9 and 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 [facility] [id number] [place] [address] 14663- 4362 Apr, [facility] [id number] [place] [address] 36653- 7307 Mar, [facility] [id number] [place] [address] 11329- 5445 Feb, [facility] [id number] [place] [address] 58137- 4200 Feb, Major depressive disorder, recurrent, moderate F33.1 ; Anxiety disorder, unspecified F41.9 and 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 [facility] [id number] [place] [address] 64724- 9254 Feb, [facility] [address] 22469- 5577 Feb, Generalized anxiety disorder F41.1 and Bipolar disorder, unspecified F31.[address] 60554- 6517 Jan, [facility] [id number] [place] [address] 27866- 5301 Jan, [facility] [address] 73446- 8130 Jan, Bipolar disorder, unspecified F31.9 and Generalized anxiety disorder F41.[address] 02485- 9184 Dec, [facility] [id number] [place] [address] 44446- 3215 Dec, Bipolar disorder, unspecified F31.9 and Generalized anxiety disorder F41.1 [facility] [address] 15623- 2985 Dec, Generalized anxiety disorder F41.1 and Major depressive disorder, recurrent, moderate F33.[address] 83378- 7024 Oct, Headache 784.0 ; Cough 786.2 ; Vomiting and diarrhea 787.03 and Dysuria 788.1 [place] [id number] [place] [address] 69606- 7026 Aug, [place] [id number] [address]- 8116 Aug, Headache 784.0 and Shortness of breath 786.05 [facility] [address] [place] [address]- 3[address] Aug, [facility] [address] [address]- 7476 18 Aug, 2014 Migraine 346.90 [facility] [id number] [address]- 4422 Jun, [facility] [address] [address]- 0886 Jun, [facility] [address], [place] [address]- 5539 May, [facility] [address], [place] [address]- 0449 May, [facility] [address], [place] [address]- 9131 May, [facility] [address], [place] [address]- 7016 May, [facility] [address], [place] [address]- 9361 May, [facility] [address], [place] [address]- 4682 May, [facility] [address], [place] [address]- 5512 Apr, [facility] [address], [place] [address]- 9744 Apr, [facility] [address] 8028 Apr, [facility] [address] 0170 Apr, [facility] [place] [facility] [address] [facility] [id number] [place] [address]- 8616 Apr, [facility] [place] [facility] [address] [id number] [place] [address]- 0837 Mar, [facility] [place] [facility] [address] [id number] [place] [address]- 2176 Mar, [facility] [place] [facility] [address] [id number] [place] [address]- 0391 Mar, [facility] [place] [facility] [address] [id number] [place] [address]- 6119 Mar, [facility] [place] [facility] [address] [id number] [place] [address]- 3277 Feb, [facility] [place] [facility] [address] [id number] [place] [address]- 2579 Feb, [facility] [place] [facility] [address] [id number] [place] [address]- 9505 Feb, [facility] [place] [facility] [address] [id number] [place] [address]- 9873 Feb, [facility] [place] [facility] [address] [id number] [place] [address]- 8087 Feb, [facility] [place] [facility] [address] [id number] [place] [address]- 3327 Feb, [facility] [place] [facility] [address] [id number] [place] [address]- 9704 Feb, [facility] [place] [facility] [address] [id number] [place] [address]- 8669 Feb, [facility] [place] [facility] [address] [id number] [place] [address]- 3599 Feb, [facility] [place] [facility] [address] [id number] [place] [address]- 8776 Feb, [facility] [place] [facility] [address] [id number] [place] [address]- 2063 Feb, [facility] [place] [facility] [address] [id number] [place] [address]- 0995 Feb, [facility] [place] [facility] [address] [id number] [place] [address]- 9656 Jan, [facility] [place] [facility] [address] [id number] [place] [address]- 7842 Jan, [facility] [place] [facility] [address] [id number] [place] [address]- 8086 Dec, [facility] [place] [facility] [address] [id number] [place] [address]- 1884 Dec, [facility] [place] [facility] [address] [id number] [place] [address]- 5963 Dec, [facility] [place] [facility] [address] [id number] [place] [address]- 0049 Dec, [facility] [place] [facility] [address] [id number] [place] [address]- 3748 Dec, [facility] [place] [facility] [address] [id number] [place] [address]- 5422 Dec, [facility] [place] [facility] [address] [id number] [place] [address]- 8301 Sep, [facility] [place] [facility] [address] [id number] [place] [address]- 5576 Sep, [facility] [place] [facility] [address] [id number] [place] [address]- 8465 Sep, [facility] [place] [facility] [address] [id number] [place] [address]- 7206 Sep, [facility] [place] [facility] [address] [id number] [place] [address]- 3139 Sep, [facility] [place] [facility] [address] [id number] [place] [address]- 3997 Sep, [facility] [place] [facility] [address] [id number] [place] [address]- 2201 07 Sep, 2013 [facility] [place] [facility] [address] [id number] [place] [address]- 4101 07 Sep, 2013 [facility] [place] [facility] [address] [id number] [place] [address]- 4265 Sep, [facility] [place] [facility] [address] [id number] [place] [address]- 1822 Sep, [facility] [place] [facility] [address] [id number] [place] [address]- 5738 24 Aug, 2013 [facility] [place] [facility] [address] [id number] [place] [address]- 8939 Aug, [facility] [place] [facility] [address] [id number] [place] [address]- 7112 Aug, [facility] [place] [facility] [address] [id number] [place] [address]- 3053 Aug, [facility] [place] [facility] [address] [id number] [place] [address]- 4765 Aug, [facility] [place] [facility] [address] [id number] [place] [address]- 2013 Aug, [facility] [place] [facility] [address] [id number] [place] [address]- 0081 Aug, [facility] [place] [facility] [address] [id number] [place] [address]- 1948 Aug, [facility] [place] [facility] [address] [id number] [place] [address]- 7186 Aug, [facility] [place] [facility] [address] [id number] [place] [address]- 9841 05 Aug, 2013 [facility] [place] [facility] [address] [id number] [place] [address]- 5243 05 Aug, 2013 [facility] [place] [facility] [address] [id number] [place] [address]- 2637 Aug, [facility] [place] [facility] [address] [id number] [place] [address]- 0605 Aug, [facility] [place] [facility] [address] [id number] [place] [address]- 6456 July, [facility] [place] [facility] [address] [id number] [place] [address]- 8582 July, [facility] [place] [facility] [address] [id number] [place] [address]- 2731 July, [facility] [place] [facility] [address] [id number] [place] [address]- 1536 July, [facility] [place] [facility] [address] [id number] [place] [address]- 8283 July, [facility] [place] [facility] [address] [id number] [place] [address]- 4457 July, [facility] [place] [facility] [address] [id number] [place] [address]- 1730 July, [facility] [place] [facility] [address] [id number] [place] [address]- 3797 Jun, [facility] [place] [facility] [address] [id number] [place] [address]- 5105 Jun, [facility] [place] [facility] [address] [id number] [place] [address]- 6902 Jun, [facility] [place] [facility] [address] [id number] [place] [address]- 2748 Jun, [facility] [place] [facility] [address] [id number] [place] [address]- 5096 Jun, [facility] [place] [facility] [address] [id number] [place] [address]- 7393 Jun, [facility] [place] [facility] [address] [id number] [place] [address]- 5578 Jun, [facility] [place] [facility] [address] [id number] [place] [address]- 4576 17 May, 2013 [facility] [place] [facility] [address] [id number] [place] [address]- 0390 17 May, 2013 [facility] [place] [facility] [address] [id number] [place] [address]- 6675 14 May, 2013 [facility] [place] [facility] [address] [facility] [id number] [place] [address]- 0252 14 May, 2013 [facility] [place] [facility] [address] [id number] [place] [address]- 2830 13 May, 2013 [facility] [place] [facility] [address] [id number] [place] [address]- 4589 13 May, 2013 [facility] [place] [facility] [address] [facility] [id number] [place] [address]- 6079 10 May, 2013 [facility] [place] [facility] [address] [facility] [id number] [place] [address]- 4798 10 May, 2013 [facility] [place] [facility] [address] [id number] [place] [address]- 5393 07 May, 2013 [facility] [place] [facility] [address] [id number] [place] [address]- 4945 26 Apr, 2013 [facility] [place] [facility] [address] [facility] [id number] [place] [address]- 4524 26 Apr, 2013 [facility] [place] [facility] [address] [id number] [place] [address]- 6532 18 Apr, 2013 [facility] [place] [facility] [address] [id number], [place] [address]- 2718 15 Apr, 2013 [facility] [place] [facility] [address] [id number] [place] [address]- 4981 15 Apr, 2013 [facility] [place] [facility] [address] [id number] [place] [address]- 6963 11 Apr, 2013 [facility] [place] [facility] [address] [facility] [id number] [place] 8371 05 Apr, 2013 [facility] [place] [facility] [address] [id number] [place] [address]- 8854 Apr, [facility] [place] [facility] [address] [id number] [place] [address]- 6167 Apr, [facility] [place] [facility] [address] [id number] [place] [address]- 1677 Apr, [facility] [place] [facility] [address] [id number] [place] [address]- 2540 Mar, [facility] [place] [facility] [address] [id number] [place] [address]- 3511 Mar, [facility] [place] [facility] [address] [id number] [place] [address]- 1917 Mar, [facility] [place] [facility] [address] [id number] [place] [address]- 3561 Mar, [facility] [place] [facility] [address] [id number] [place] [address]- 0979 Mar, [facility] [place] [facility] [address] [id number] [place] [address]- 3233 Mar, [facility] [place] [facility] [address] [id number] [place] [address]- 1692 Mar, [facility] [place] [facility] [address] [id number] [place] [address]- 2472 Mar, [facility] [place] [facility] [address] [id number] [place] [address]- 7424 Feb, [facility] [place] [facility] [address] [id number] [place] [address]- 8251 Feb, [facility] [place] [facility] [address] [id number] [place] [address]- 1779 Jan, [facility] [place] [facility] [address] [id number] [place] [address]- 9433 Jan, [facility] [place] [facility] [address] [id number], [place] [address]- 7498 Jan, [facility] [place] [facility] [address] [id number] [place] [address]- 7617 15 Jan, 2013 [facility] [place] [facility] [address] [id number], [place] [address]- 4868 Jan, [facility] [place] [facility] [address] [id number] [place] [address]- 4094 Jan, [facility] [place] [facility] [address] [id number], [place] [address]- 3929 Jan, [facility] [place] [facility] [address] [id number] [place] [address]- 4840 Jan, [facility] [place] [facility] [address] [id number] [place] [address]- 5125 Dec, [facility] [place] [facility] [address] [id number], [place] [address]- 2729 Dec, [facility] [place] [facility] [address] [id number] [place] [address]- 4787 Dec, [facility] [place] [facility] [address] [id number], [place] [address]- 0177 20 Nov, 2012 [facility] [place] [facility] [address] [id number] [place] [address]- 4815 13 Nov, 2012 [facility] [place] [facility] [address] [id number], [place] [address]- 7768 12 Nov, 2012 [facility] [place] [facility] [address] [id number], [place] [address]- 7863 09 Nov, 2012 [facility] [place] [facility] [address] [id number] [place] [address]- 3741 06 Nov, 2012 [facility] [place] [facility] [address] [id number], [place] [address]- 4075 06 Nov, 2012 [facility] [place] [facility] [address] [id number] [place] [address]- 3578 Oct, [facility] [place] [facility] [address] [id number] [place] [address]- 3545 Oct, [facility] [address] [id number] [place] [address]- 4004 Sep, [facility] [place] [facility] [address] [id number] [place] [address]- 8713 Sep, [facility] [address] [id number] [place] [address]- 7503 Sep, [facility] [address] [id number] [place] [address]- 0307 Sep, [facility] [address] [id number] [place] [address]- 9752 Sep, [facility] [address] [id number] [place] [address]- 1571 Sep, [facility] [address] [id number] [place] [address]- 0002 Sep, [facility] [address] [id number] [place] [address]- 4783 Aug, [facility] [place] [facility] [address] [id number] [place] [address]- 7648 Aug, [facility] [address] [id number] [place] [address]- 8994 Aug, [facility] [place] [facility] [address] [id number] [place] [address]- 9412 Aug, [facility] [address] [id number] [place] [address]- 6783 Aug, [facility] [place] [facility] [address] [id number] [place] [address]- 4358 Aug, [facility] [place] [facility] [address] [id number] [place] [address]- 4734 July, [facility] [place] [facility] [address] [id number] [place] [address]- 9768 July, [facility] [address] [id number] [place] [address]- 7835 July, [facility] [address] [id number] [place] [address]- 1638 July, [facility] [address] [id number] [place] [address]- 0962 July, [facility] [place] [facility] [address] [id number] [place] [address]- 9309 July, [facility] [address] [id number] [place] [address]- 9957 Jun, [facility] [place] [facility] [address] [id number] [place] [address] Jun, [facility] [address] [id number] [place] [address] Jun, [facility] [address] [id number] [place] [address] Jun, [facility] [address] [id number] [place] [address] Jun, [facility] [address] [id number] [place] [address] Jun, [facility] [place] [facility] [address] [id number] [place] [address] Jun, [facility] [place] [facility] [address] [id number], [place] [address] May, [facility] [place] [facility] [address] [id number] [place] [address] May, [facility] [place] [facility] [address] [id number] [place] [address] Apr, [facility] [place] [facility] [address] [id number] [place] [address] Apr, [facility] [place] [facility] [address] [id number] [place] [address] 18 Apr, 2012 [facility] [address] [id number] [place] [address]46 18 Apr, 2012 [facility] [place] [facility] [address] [id number] [place] [address]46 12 Apr, 2012 [facility] [place] [facility] [address] [id number] [place] [address] 2546 08 Apr, 2012 [facility] [place] [facility] [address] [id number] [place] [address] 07 Apr, 2012 [facility] [place] [facility] [address] [id number] [place] [address] 07 Apr, 2012 [facility] [place] [facility] [address] [id number] [place] [address]- [address] 06 Apr, 2012 [facility] [place] [facility] [address] [id number] [place] [address]44 06 Apr, 2012 [facility] [place] [facility] [address] [id number] [place] [address]- [address] 03 Apr, 2012 [facility] [place] [facility] [address] [id number] [place] [address] Mar, [facility] [place] [facility] [address] [id number] [place] [address] Mar, [facility] [place] [facility] [address] [id number] [place] [address] 2547 Mar, [facility] [place] [facility] [address] [id number] [place] [address] Mar, [facility] [place] [facility] [address] [id number] [place] [address] 2546 Mar, [facility] [place] [facility] [address] [id number] [place] [address] 2546 Mar, [facility] [place] [facility] [address] [id number] [place] [address] 15 Mar, 2012 [facility] [address] [id number] [place] [address] 15 Mar, 2012 [facility] [address] [id number] [place] [address] 09 Mar, 2012 [facility] [address] [id number] [place] [address] Mar, [facility] [address] [id number] [place] [address] Mar, [facility] [address] [id number] [place] [address] Mar, [facility] [address] [id number] [place] [address] Mar, [facility] [address] [id number] [place] [address] Feb, [facility] [place] [facility] [address] [id number] [place] [address] Feb, [facility] [address] [id number] [place] [address] 18 Feb, 2012 [facility] [place] [facility] [address] [id number] [place] [address]- [address]83 18 Feb, 2012 [facility] [address] [id number] [address] 11 Feb, 2012 [facility] [place] [facility] [address] [id number], [place] [address] 11 Feb, 2012 [facility] [place] [facility] [address] [id number] [place] [address]- [address] 10 Feb, 2012 [facility] [place] [facility] [address] [id number] [place] [address]- [address] 10 Feb, 2012 [facility] [place] [facility] [address] [id number] [place] [address]- [address] 10 Feb, 2012 [facility] [place] [facility] [address] [id number] [place] [address]- [address] Feb, [facility] [place] [facility] [address] [id number] [place] [address]- [address] Feb, [facility] [place] [facility] [address] [id number] [place] [address] Feb, [facility] [place] [facility] [address] [id number] [place] [address]- [address]36 Feb, [facility] [place] [facility] [address] [id number] [place] [address]- [address] Feb, [facility] [place] [facility] [address] [id number] [place] [address]- 15[address] Feb, [facility] [place] [facility] [address] [id number] [place] [address] Jan, [facility] [place] [facility] [address] [facility] [id number] [place] [address]- [address] Jan, [facility] [place] [facility] [address] [id number] [place] [address]- [address] Jan, [facility] [place] [facility] [address] [facility] [id number] [place] [address]- [address] Jan, [facility] [place] [facility] [address] [facility] [id number] [place] [address]- [address] Dec, [facility] [place] [facility] [address] [facility] [id number] [place] [address]- [address] Dec, [facility] [place] [facility] [address] [facility] [id number], [place] [address] Dec, [facility] [place] [facility] [address] [id number] [place] [address]- 79[address] Dec, [facility] [place] [facility] [address] [facility] [id number] [place] [address]- [address] Dec, [facility] [place] [facility] [address] [facility] [id number] [id number]- 3007 Dec, [facility] [place] [facility] [address] [id number] [place] [address] 16 Dec, 2011 [facility] [place] [facility] [address] [id number] [place] [address] 16 Dec, 2011 [facility] [place] [facility] [address] [id number] [place] [address] 6086 07 Dec, 2011 [facility] [place] [facility] [address] [id number] [place] [address] 04 Dec, 2011 [facility] [place] [facility] [address] [id number] [place] [address] 03 Dec, 2011 [facility] [place] [facility] [address] [id number] [place] [address] 25 Sep2011 [facility] [place] [facility] [address] [id number] [place] [address] 8936 24 Sep, 2011 [facility] [place] [facility] [address] [id number] [place] [address] 1235 20 Sep, 2011 [facility] [place] [facility] [address] [id number] [place] [address] 4650 19 Sep, 2011 [facility] [place] [facility] [address] [id number] [place] [address] 2973 17 Sep2011 [facility] [place] [facility] [address] [id number] [place] [address] 3935 16 Sep, 2011 [facility] [place] [facility] [address] [id number], [place] [address] 14 Sep, 2011 [facility] [place] [facility] [address] [id number] [place] [address]- 4308 13 Sep, 2011 [facility] [place] [facility] [address] [id number] [place] [address] 5106 12 Sep, 2011 [facility] [place] [facility] [address] [id number] [place] [address] 0299 07 Sep, 2011 [facility] [place] [facility] [address] [id number] [place] [address] 4344 Nov, [facility] [place] [facility] [address] [id number] [place] [address] 7416 Nov, [facility] [place] [facility] [address] [id number] [place] [address] 3346 Nov, [facility] [place] [facility] [address] [id number] [place] [address]- 7086 Oct, [facility] [place] [facility] [address] [id number] [place] [address] 6179 Oct, [facility] [place] [facility] [address] [id number] [place] [address] 2600 Oct, [facility] [place] [facility] [address] [id number] [place] [address] 3341 Oct, [facility] [place] [facility] [address] [id number] [place] [address] 3050 Oct, [facility] [place] [facility] [address] [id number] [place] [address] 3751 Oct, [facility] [place] [facility] [address] [id number] [place] [address]- 3296 Oct, [facility] [place] [facility] [address] [id number] [place] [address] 5938 Oct, [facility] [place] [facility] [address] [id number] [place] [address] 2639 Oct, [facility] [place] [facility] [address] [id number] [place] [address] 1776 Oct, [facility] [place] [facility] [address] [id number] [place] [address] 1999 Oct, [facility] [place] [facility] [address] [id number] [place] [address] 9600 Sep, [facility] [place] [facility] [address] [id number] [place] [address] 9192 Sep, [facility] [place] [facility] [address] [id number] [place] [address] 9787 Sep, [facility] [address] [id number] [place] [address] 1125 Sep, [facility] [address] [id number] [place] [address] 1876 Sep, [facility] [address] [id number] [place] [address] 8965 Sep, [facility] [address] [id number] [place] [address] 1952 Aug, [facility] [address] [id number] [place] [address] 8923 July, [facility] [address] [id number] [place] [address] 2315 July, [facility] [address] [id number] [place] [address]- 3315 Jun, [facility] [address] [id number] [place] [address]- 5962 Jun, [facility] [address] [id number] [place] [address] 6280 Jun, [facility] [address] [id number] [place] [address] 3050 Jun, [facility] [address] [id number] [place] [address]- 8144 Jun, [facility] [address] [id number] [place] [address] 7803 Jun, [facility] [place] [facility] [address] [id number] [place] [address]- 0404 Jun, [facility] [address] [id number] [place] [address]- 1392 08 Jun, 2011 [facility] [address] [id number] [place] [address]- 6257 Jun, [facility] [place] [facility] [address] [id number] [place] [address]- 7470 Jun, [facility] [place] [facility] [address] [id number] [place] [address] 8994 Jun, [facility] [place] [facility] [address] [id number] [place] [address] 4553 19 May, 2011 [facility] [place] [facility] [address] [id number] [place] [address]- 9620 16 May, 2011 [facility] [place] [facility] [address] [id number] [place] [address]- 1849 14 May, 2011 [facility] [place] [facility] [address] [id number] [place] [address]- 0227 06 May, 2011 [facility] [place] [facility] [address] [id number] [place] [address]- 2768 28 Apr, 2011 [facility] [place] [facility] [address] [id number] [place] [address]- 4003 Apr, [facility] [place] [facility] [address] [id number] [place] [address] 8907 Apr, [facility] [place] [facility] [address] [id number] [place] [address]- 0798 Apr, [facility] [place] [facility] [address] [id number] [place] [address]- 9543 Apr, [facility] [place] [facility] [address] [id number] [place] [address]- 2727 Apr, [facility] [place] [facility] [address] [id number] [place] [address]- 8155 Apr, [facility] [place] [facility] [address] [id number] [place] [address]- 6265 Apr, [facility] [place] [facility] [address] [id number] [place] [address]- 4406 Mar, [facility] [place] [facility] [address] [id number] [place] [address]- 6996 Mar, [facility] [address] [id number] [place] [address] 1349 Mar, [facility] [address] [id number] [place] [address]- 2279 18 Mar, 2011 [facility] [address] [id number] [place] [address]- 6729 17 Mar, 2011 [facility] [address] [id number] [place] [address]- 4548 13 Mar, 2011 [facility] [address] [id number] [place] [address]- 4632 Mar, [facility] [address] [id number] [place] [address]- 0734 Mar, [facility] [address] [id number] [place] [address]- 1525 Mar, [facility] [address] [id number] [place] [address]- 6591 Mar, [facility] [address] [id number] [place] [address]- 7602 Mar, [facility] [address] [id number] [place] [address]- 8298 Mar, [facility] [address] [id number] [place] [address]- 7274 Mar, [facility] [address] [id number] [place] [address]- 6502 Mar, [facility] [address] [id number] [place] [address]- 9558 Mar, [facility] [address] [id number] [place] [address]- 4166 Mar, [facility] [address] [id number] [place] [address] Feb, [facility] [address] [id number], [place] [address]076 Feb, [facility] [address] [id number] [place] [address] Feb, [facility] [address] [facility] [id number], [place] [address]- 7488 Jan, [facility] [address] [id number] [place] [address]- 5443 Jan, [facility] [address] [id number] [place] [address]- 8581 Jan, [facility] [address] [facility] [id number], [place] [address] 1400 Dec, [facility] [address] [facility] [id number] [place] [address]- 0529 Dec, [facility] [address] [facility] [id number], [place] [address] 3355 Nov, [facility] [address] [facility] [id number], [place] [address]- 3386 Oct, [facility] [address] [facility] [id number], [place] [address]- 2731 Oct, [facility] [address] [facility] [id number], [place] [address]- 8204 Oct, [facility] [address] [facility] [id number], [place] [address]- 4728 Sep, [facility] [address] [facility] [id number] 1468 Apr, [facility] [address] [facility] [id number] [address]596 Feb, [facility] [address] [facility] [id number][place] [address] Jan, IMMUNIZATIONS No Known Immunizations SOCIAL HISTORY Never Assessed REASON FOR VISIT PALS/Advair PLAN OF CARE VITAL SIGNS MEDICATIONS Medication Instructions Dosage Frequency Start Date End Date Duration Status Advair Diskus 500-50 MCG/DOSE Inhalation Twice a day 1 puff 12h Dec, 90 days Active RESULTS No Results PROCEDURES [...] 2/ Benzos OD, pneumonia MRSA, [facility]RA, Hypokalemia-- [facility] 12/20/2015 Hospitalization History COPD exacerbation, Asthma-[facility] 09/21/16 Hospitalization History COPD-[facility] 12/30/2016 Hospitalization History [facility]-last around 2006 or so. Hospitalization History for COPD x2 Mar 2017 Hospitalization History Upper GI bleed at apr 2017 Hospitalization History [facility]- COPD Exacerbation, diarrhea 05/23/2017 Hospitalization History COPD exacerbation-[facility] 06/13/17 Hospitalization History CHF 09/09/2017 Hospitalization History COPD-UTI--[facility] 11/2017
[2018-02-18] MEDS ORDERED: NS IV 1000 ML 1,000 ML IV ONE (00:38)
[2018-02-18] MEDS ORDERED: LORazepam INJ 2 MG/ML (ATIVAN) VIAL IVP ONE (00:45)
--- NOTE | 2018-02-18 01:28 | ED Respiratory ---
General Chief Complaint: Respiratory Problems Stated Complaint: SOB,CP Nursing Triage Note: Pt. advises shortness of breath today that has become progressively worse. Source: patient, old records Exam Limitations: no limitations History of Present Illness Date Seen by Provider: Feb 17, 2018 Time Seen by Provider: 23:34 Initial Comments This 53-year-old woman with COPD presents to the emergency room in respiratory distress with audible wheezing. She is very anxious. She denies any fevers. She has been using prednisone 10 mg daily. She is well known to this provider and has been seen numerous times for COPD exacerbation and anxiety. She is afebrile. She also complains of chest pain and states her chest pain is more severe than usual for her COPD exacerbations. Patient denies any recent methamphetamine use. Allergies and Home Medications Allergies Coded Allergies: buspirone (Verified Allergy, Mild, 05/02/17) Made"legs Shaky" amitriptyline (Verified Allergy, Unknown, 05/02/17) " MAKES ME DO WEIRD THINGS LIKE WALK IN MY SLEEP AND HAVE HALLUCINATIONS." Home Medications Albuterol Sulfate 1 Puff Puff, 2 PUFF IH Q4H PRN for SHORTNESS OF BREATH, ( Reported) Aspirin 81 Mg Tablet.dr, 81 MG PO DAILY, (Reported) Cefuroxime Axetil 250 Mg Tablet, 250 MG PO BID Prescribed by: ELLEN ACE on 02/04/18 1305 Clindamycin HCl 300 Mg Capsule, 300 MG PO TID Prescribed by: ELLEN ACE on 01/19/18 1450 Fluticasone/Salmeterol 1 Each Blst.w.dev, 1 PUFF IH BID, (Reported) Furosemide 20 Mg Tablet, 20 MG PO DAILY, (Reported) Glimepiride 1 Mg Tablet, 1 MG PO DAILY PRN for WHEN TAKING PREDNISONE, (Reported ) Hydrocodone/Acetaminophen 1 Each Tablet, 1 EACH PO Q6H PRN for PAIN-MODERATE Prescribed by: ELLEN ACE on 01/19/18 1450 Ipratropium/Albuterol Sulfate 3 Ml Ampul.neb, 3 ML IH QID PRN for SHORTNESS OF BREATH, (Reported) Levofloxacin 500 Mg Tablet, 500 MG PO DAILY Prescribed by: CONNOR JOHNSTON on 11/22/17 1118 Metoprolol Tartrate 25 Mg Tablet, 12.5 MG PO BID, (Reported) TAKES 1/2 (25MG) TABLET Ondansetron 4 Mg Tab.rapdis, 4 MG PO Q6H PRN for NAUSEA/VOMITING Prescribed by: ABIGAIL PASCUAL on 12/06/17 1434 Prednisone 10 Mg Tab, 10 MG PO DAILY 5 tabs (50mg) Day 1 4 tabs (40mg) Day 2 4 tabs (40mg) Day 3 3 tabs (30mg) Day 4 3 tabs (30mg) Day 5 2 tabs (20mg) Day 6 2 tabs (20mg) Day 7 1 tab (10Mg) Day 8 Prescribed by: CONNOR JOHNSTON on 11/22/17 1118 Prednisone 20 Mg Tab, 40 MG PO DAILY Prescribed by: ABIGAIL PASCUAL on 12/06/17 1434 Prednisone 5 Mg Tablet, 5 MG PO UD 12 PILLS DAY 1, THEN DECREASE BY 1 PILL A DAY UNTIL GONE Prescribed by: TIMOTHY HUGHES on 12/26/17 1948 Prednisone 20 Mg Tab, 40 MG PO DAILY Prescribed by: ELLEN ACE on 02/04/18 1305 Sacubitril/Valsartan 1 Each Tablet, 1 TAB PO BID, (Reported) Tiotropium [place] 1 Inh Aerp, 1 CAP IH DAILY, (Reported) Patient Home Medication List Home Medication List Reviewed: Yes Review of Systems Review of Systems Constitutional: no symptoms reported EENTM: no symptoms reported Respiratory: see HPI Cardiovascular: see HPI Gastrointestinal: no symptoms reported Genitourinary: no symptoms reported Musculoskeletal: no symptoms reported Skin: no symptoms reported Psychiatric/Neurological: No Symptoms Reported Hematologic/Lymphatic: No Symptoms Reported Immunological/Allergic: no symptoms reported Past Sbfaige-Qmajuj-Xtayda Hx Patient Social History Alcohol Use: Denies Use Recreational Drug Use: No (4 YRS AGO) Drug of Choice: + IV METH, ALSO SMOKES IT; MULTIPLE BENZODIAZEPINE OD'S Smoking Status: Current Everyday Smoker Type Used: Cigarettes 2nd Hand Smoke Exposure: Yes Recent Foreign Travel: No Contact w/Someone Who Travel: No Recent Infectious Disease Expo: No Recent Hopitalizations: Yes Immunizations Up To Date Tetanus Booster (TDap): Unknown Date of Pneumonia Vaccine: Dec 08, 2011 Date of Influenza Vaccine: Dec 31, 2016 Seasonal Allergies Seasonal Allergies: No Past Medical History Surgeries: Yes (EGD/COLONOSCOPY; CARDIAC CATH 09/18/17--NO INTERVENTION) Cardiac Respiratory: Yes (O2 AT 2-3L/NC) Pneumonia, Chronic Bronchitis, Sleep Apnea, COPD Currently Using CPAP: No Currently Using BIPAP: Yes Cardiac: Yes Cardiomyopathy, Coronary Artery Disease, High Cholesterol, Hypertension Neurological: Yes Headaches /Migraines 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 Disorders: No 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 Disorders: Denies 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 Sexually Transmitted Disease: No HIV/AIDS: No Genitourinary: No Gastrointestinal: Yes (GASTRITIS AND ESOPHAGEAL CANDIDIASIS 04/2017) Gastroesophageal Reflux, Gastrointestinal Bleed, Chronic Constipation, Chronic Diarrhea, Esophagitis, Ulcer Musculoskeletal: Yes (chronic shoulder and neck pain) Endocrine: Yes (DM- only while on steriods per pt) Diabetes, Non-Insulin dep HEENT: No Cancer: No Psychosocial: Yes (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) Sleep Difficulties, Anxiety, Suicide Attempts, Bipolar, Depression Integumentary: No Blood Disorders: Yes (ANEMIA) Adverse Reaction/Blood Tranf: No Family Medical History Cancer 03 MOTHER, Onset:66 (LUNG ) 09 BROTHER (LUNG ) Congestive heart failure 03 FATHER Heart Disease, Cancer Physical Exam Vital Signs - First Documented 02/17/18 02/17/18 23:46 23:48 Pulse 115 Resp 40 B/P (MAP) 0/0 (0) Pulse Ox 98 O2 Delivery Room Air O2 Flow Rate 10.00 FiO2 100 Capillary Refill : Less Than 3 Seconds Height: 5'7.00" Weight: 240lbs. 12.0oz. 108.433747jx; 29.1 BMI Method:Estimated General Appearance: WD/WN, moderate distress HEENT: PERRL/EOMI, normal ENT inspection Neck: normal inspection Respiratory: respiratory distress, accessory muscle use; No crackles; wheezing Cardiovascular: regular rate, rhythm, no edema, no murmur Gastrointestinal: non tender, soft Extremities: normal inspection, no pedal edema Neurologic/Psychiatric: cotton grader II-XII nml as tested, no motor/sensory deficits, alert, normal mood/affect, oriented x 3 Skin: normal color, warm/dry Progress/Results/Core Measures Suspected Sepsis Recent Fever Within 48 Hours: No Infection Criteria Present: None New/Unexplained Altered Menta: No Sepsis Screen: No Definite Risk SIRS Temperature: Pulse: 105 Respiratory Rate: 26 Laboratory Tests 02/17/18 23:44: White Blood Count 10.4 Blood Pressure 139 /90 Mean: 0 Laboratory Tests 02/17/18 23:44: Creatinine 0.86, Platelet Count 306, Total Bilirubin 0.3 Results/Orders Lab Results Laboratory Tests Test 02/17/18 23:44 Range/Units White Blood Count 10.4 4.3-11.0 10^3/uL Red Blood Count 4.34 L 4.35-5.85 10^6/uL Hemoglobin 12.7 11.5-16.0 G/DL Hematocrit 38 35-52 % Mean Corpuscular Volume 88 80-99 FL Mean Corpuscular Hemoglobin 29 25-34 PG Mean Corpuscular Hemoglobin Concent 33 32-36 G/DL Red Cell Distribution Width 14.1 10.0-14.5 % Platelet Count 306 130-400 10^3/uL Mean Platelet Volume 9.6 7.4-10.4 FL Neutrophils (%) (Auto) 60 42-75 % Lymphocytes (%) (Auto) 30 12-44 % Monocytes (%) (Auto) 6 0-12 % Eosinophils (%) (Auto) 4 0-10 % Basophils (%) (Auto) 0 0-10 % Neutrophils # (Auto) 6.2 1.8-7.8 X 10^3 Lymphocytes # (Auto) 3.1 1.0-4.0 X 10^3 Monocytes # (Auto) 0.7 0.0-1.0 X 10^3 Eosinophils # (Auto) 0.4 H 0.0-0.3 10^3/uL Basophils # (Auto) 0.0 0.0-0.1 10^3/uL D-Dimer 0.80 H 0.00-0.49 UG/ML Sodium Level 143 135-145 MMOL/L Potassium Level 3.5 L 3.6-5.0 MMOL/L Chloride Level 107 98-107 MMOL/L Carbon Dioxide Level 23 21-32 MMOL/L Anion Gap 13 5-14 MMOL/L Blood Urea Nitrogen 11 7-18 MG/DL Creatinine 0.86 0.60-1.30 MG/DL Estimat Glomerular Filtration Rate > 60 BUN/Creatinine Ratio 13 Glucose Level 106 H 70-105 MG/DL Calcium Level 9.7 8.5-10.1 MG/DL Corrected Calcium 9.7 8.5-10.1 MG/DL Total Bilirubin 0.3 0.1-1.0 MG/DL Aspartate Amino Transf (AST/SGOT) 10 5-34 U/L Alanine Aminotransferase (ALT/SGPT) 12 0-55 U/L Alkaline Phosphatase 117 40-136 U/L Troponin I < 0.30 <0.30 NG/ML Total Protein 6.8 6.4-8.2 GM/DL Albumin 4.0 3.2-4.5 GM/DL My Orders Orders - TYLOR DURAN MD Albuterol Pre-Mix Nebs (Rt) (Proventil (02/17/18 23:38) Albuterol/Ipra Inhalation Soln (Duoneb I (02/17/18 23:45) Svn Small Volume Nebulizer (02/17/18 23:38) Svn Small Volume Nebulizer (02/17/18 23:38) Cbc With Automated Diff (02/17/18 23:39) Comprehensive Metabolic Panel (02/17/18 23:39) Drug Screen Stat (Urine) (02/17/18 23:39) Troponin I (02/17/18 23:39) Chest 1 View, Ap/Pa Only (02/17/18 23:39) Saline Lock/Iv-Start (02/17/18 23:39) Ekg Tracing (02/17/18 23:39) O2 (02/17/18 23:39) Monitor-Rhythm Ecg Trace Only (02/17/18 23:39) Methylprednisolone Sod Succ (Solu-Medrol (02/17/18 23:45) Lorazepam Injection (Ativan Injection) (02/17/18 23:45) Albuterol Pre-Mix Nebs (Rt) (Proventil (02/17/18 23:38) Albuterol/Ipra Inhalation Soln (Duoneb I (02/17/18 23:38) Saline Lock/Iv-Start (02/18/18 00:38) Ns Iv 1000 Ml (Sodium Chloride 0.9%) (02/18/18 00:38) Lorazepam Injection (Ativan Injection) (02/18/18 00:45) Fibrin Degradation Products (02/18/18 00:38) Bipap (Bilevel) Set Up (02/18/18 00:40) Enoxaparin Injection (Lovenox Injection) (02/18/18 01:30) Medications Given in ED Current Medications Medications Dose Ordered Sig/Vladimir Route Start Time Stop Time Status Last Admin Dose Admin Albuterol/ Ipratropium 3 ml STK-MED ONCE .ROUTE 02/17/18 23:38 02/17/18 23:41 DC 02/17/18 23:46 3 ML Lorazepam 1 mg ONCE ONCE IVP 02/17/18 23:45 02/17/18 23:46 DC 02/18/18 00:12 1 MG Lorazepam 1 mg ONCE ONCE IVP 02/18/18 00:45 02/18/18 00:46 DC 02/18/18 00:53 1 MG Methylprednisolone Sodium Succinate 125 mg ONCE ONCE IVP 02/17/18 23:45 02/17/18 23:46 DC 02/18/18 00:12 125 MG Sodium Chloride 1,000 ml @ 0 mls/hr Q0M ONCE IV 02/18/18 00:38 02/18/18 00:40 DC 02/18/18 00:53 0 MLS/HR Vital Signs/I&O 02/17/18 02/17/18 02/17/18 02/18/18 23:46 23:48 23:48 00:50 Pulse 115 105 Resp 40 26 B/P (MAP) 0/0 (0) Pulse Ox 98 98 96 96 O2 Delivery Room Air Simple Mask Room Air O2 Flow Rate 10.00 25.00 FiO2 100 Capillary Refill : Less Than 3 Seconds Blood Pressure Mean: 0 Progress Note : Progress Note Patient received an hour-long nebulizer treatment. She was still having some respiratory difficulty after that. BiPAP was initiated. She was given 2 doses of Ativan 1 mg by IV route to treat anxiety. Solu-Medrol 125 mg was administered. 1 L IV normal saline was also given. Troponin and EKG were negative. D-dimer was obtained because of the stronger than usual chest pain. D-dimer was elevated. Patient is not able to be still enough for CT angiogram at this time. Therefore, she'll be empirically treated with Lovenox and CTA will be obtained when she settles down. ECG Initial ECG Impression Date: Feb 17, 2018 Initial ECG Impression Time: 23:48 Initial ECG Rate: 90 Initial ECG Rhythm: Normal Sinus Initial ECG Intervals: Normal Initial ECG Impression: Nonspecific Changes Comment Sinus rhythm with no ST elevation or depression. No abnormal intervals. Left axis deviation by automated read. Diagnostic Imaging Diagonstic Imaging: Xray Plain Films/CT/US/NM/MRI: chest Comments Chest x-ray viewed by me. Report not yet available. COPD changes noted. No focal consolidation or infiltrate. Departure Communication (Admissions) Time/Spoke to Admitting Phy: 01:15 Dr. Cunningham Impression Primary Impression: COPD with exacerbation Additional Impressions: Chest pain Qualified Codes: R07.9 - Chest pain, unspecified Elevated d-dimer Anxiety Disposition: ADMITTED INPATIENT Condition: Improved Admissions Decision to Admit Reason: Admit from ER (General) Decision to Admit/Date: Feb 17, 2018 Time/Decision to Admit Time: 23:40 Departure-Patient Inst. Referrals: [facility] [place] (PCP) Primary Care Physician ALIZA CARTER (Family) Primary Care Physician TYLOR DURAN MD Feb 18, 2018 01:27
[2018-02-18] MEDS ORDERED: ENOXAPARIN 100 MG/1 ML (LOVENOX) SYR SC ONE (01:30)
[2018-02-18 01:49] LABS: AMPHETAMINE SCREEN, URINE NEGATIVE (NEGATIVE); BARBITURATE SCREEN URINE NEGATIVE (NEGATIVE); BENZODIAZEPINES SCREEN URINE NEGATIVE (NEGATIVE); CANNABINOID SCREEN, URINE NEGATIVE (NEGATIVE); COCAINE SCREEN URINE NEGATIVE (NEGATIVE); METHADONE STAT NEGATIVE (NEGATIVE); METHAMPHETAMINE SCREEN URINE S NEGATIVE (NEGATIVE); OPIATE SCREEN URINE NEGATIVE (NEGATIVE); OXYCODONE STAT NEGATIVE (NEGATIVE); PROPOXYPHENE STAT NEGATIVE (NEGATIVE); TRICYCLIC ANTIDEPRESSANTS SCRE NEGATIVE (NEGATIVE)
[2018-02-18] MEDS ORDERED: ONDANSETRON 4 MG/2 ML (SDV) Z0FRAN IV PRN (02:45)
[2018-02-18] MEDS ORDERED: NS IV 1000 ML 1,000 ML IV SCH (02:45)
[2018-02-18] MEDS: LORazepam INJ 2 MG/ML (ATIVAN) VIAL IV PRN ×2 (02:45→04:28)
[2018-02-18] MEDS ORDERED: RT-ALBUTEROL/IPRATROPIUM 3 ML (DUONEB) VIAL INH PRN (03:15)
[2018-02-18] MEDS ORDERED: methylPREDNISolone 40 MG/ML (Solu-MEDROL) VIAL IV SCH (06:00)
[2018-02-18] MEDS ORDERED: RT-ALBUTEROL/IPRATROPIUM 3 ML (DUONEB) VIAL INH SCH (06:00)
--- NOTE | 2018-02-18 07:35 | Diagnostic Imaging Report ---
INDICATION: Shortness of breath Portable chest 11:55 PM Heart size and pulmonary vascularity are normal. Lungs are clear. There are no effusions or pneumothoraces. IMPRESSION: Negative chest Dictated by: Dictated on workstation # [id number]
--- NOTE | 2018-02-18 11:39 | Short Stay Summary-Hospitalist ---
Short Stay Diagnosis D/C Date 02/18/18 AMA Patient left in AM prior to being seen Clinical Quality Measures DVT/VTE Risk/Contraindication: Risk Factor Score Per Nursin RFS Level Per Nursing on Admit: 4+=Very High TIMOTHY LARIOS MD Feb 18, 2018 11:38
[2018-02-18 11:48] LABS: BILIRUBIN,URINE NEGATIVE (NEGATIVE); CLARITY,URINE SLIGHTLY CLOUDY; COLOR,URINE YELLOW; GLUCOSE, URINE (UA) 3+ (NEGATIVE); KETONES,URINE NEGATIVE (NEGATIVE); LEUKOCYTE ESTERASE ,URINE NEGATIVE (NEGATIVE); NITRITE,URINE NEGATIVE (NEGATIVE); PH,URINE 6.5 (5-9); PROTEIN,URINE NEGATIVE (NEGATIVE); UROBILINOGEN,URINE NORMAL (NORMAL)
[2018-02-18 12:03] LABS: BACTERIA,URINE FEW /HPF; RBC,URINE RARE /HPF; WBC,URINE RARE /HPF
[2018-02-18] MEDS ORDERED: ENOXAPARIN 100 MG/1 ML (LOVENOX) SYR SC SCH (13:00)
[2018-02-18] MEDS ORDERED: AZIT250T12 PO (14:00)
[2018-02-18] MEDS ORDERED: PRD20T PO (14:00)
== END 2018-02-18 06:06 | disposition left against medical advice (07) | DRG 191 ==
LOC: EDUNIT# 23:30 → ER 23:33 → ICU 02-18 01:20
PROVIDERS: ADMIT Family Medicine; ATTEND Family Medicine
DX: J44.1 Chronic obstructive pulmonary disease with (acute) exacerbation (principal); R06.03 Acute respiratory distress; R07.9 Chest pain, unspecified; I25.10 Atherosclerotic heart disease of native coronary artery without angina pectoris; I42.9 Cardiomyopathy, unspecified; I10 Essential (primary) hypertension; R79.1 Abnormal coagulation profile; F17.210 Nicotine dependence, cigarettes, uncomplicated; E78.00 Pure hypercholesterolemia, unspecified; G47.30 Sleep apnea, unspecified; G43.909 Migraine, unspecified, not intractable, without status migrainosus; E09.9 Drug or chemical induced diabetes mellitus without complications; K21.9 Gastro-esophageal reflux disease without esophagitis; F15.90 Other stimulant use, unspecified, uncomplicated; M25.519 Pain in unspecified shoulder; M54.2 Cervicalgia; F31.9 Bipolar disorder, unspecified; F41.9 Anxiety disorder, unspecified; T38.0X5A Adverse effect of glucocorticoids and synthetic analogues, initial encounter; Z79.52 Long term (current) use of systemic steroids; Z87.01 Personal history of pneumonia (recurrent); Z87.19 Personal history of other diseases of the digestive system; Z87.11 Personal history of peptic ulcer disease; Z79.84 Long term (current) use of oral hypoglycemic drugs; Z91.5 Personal history of self-harm; Z88.8 Allergy status to other drugs, medicaments and biological substances
CPT/HCPCS: 36415; 71045; 80053; 80306; 81000; 84484; 85025; 85379; 93005; 93041; 94640; 94660; 96361; 96372; 96374; 96375; 96376

== ENCOUNTER 2018-02-18 11:17 | Emergency (ER) | payer OTHER ==
[~2018-02-18] VITALS: Ht 175.3 cm; Wt 91.2 kg
[2018-02-18] MEDS ORDERED: RT-ALBUTEROL/IPRATROPIUM 3 ML (DUONEB) VIAL ONE (11:23)
[2018-02-18] MEDS ORDERED: RT-IPRATROPIUM (ATROVENT) 0.5MG/2.5ML AMP IH ONE ×2 (11:31→11:45)
[2018-02-18] MEDS ORDERED: RT-ALBUTEROL SULF 2.5 MG/3 ML PRE-MIX VIAL ONE (11:31)
[2018-02-18] MEDS ORDERED: RT-ALBUTEROL SULF 2.5 MG/3 ML PRE-MIX VIAL INH STA (11:31)
[2018-02-18 11:37] LABS: BASOPHILS % (AUTO) 0 % (0-10); EOSINOPHILS % (AUTO) 0 % (0-10); HEMATOCRIT 39 % (35-52); HEMOGLOBIN 12.6 G/DL (11.5-16.0); LYMPHOCYTES # (AUTO) 0.9 X 10^3 (1.0-4.0); LYMPHOCYTES % (AUTO) 7 % (12-44); MEAN CORPUSCULAR HEMOGLOBIN 29 PG (25-34); MEAN CORPUSCULAR HGB CONC 32 G/DL (32-36); MEAN CORPUSCULAR VOLUME 89 FL (80-99); MEAN PLATELET VOLUME 9.9 FL (7.4-10.4); MONOCYTES # (AUTO) 0.1 X 10^3 (0.0-1.0); MONOCYTES % (AUTO) 1 % (0-12); NEUTROPHILS # (AUTO) 10.8 X 10^3 (1.8-7.8); NEUTROPHILS % (AUTO) 92 % (42-75); PLATELET COUNT 273 10^3/uL (130-400); RED BLOOD COUNT 4.39 10^6/uL (4.35-5.85); RED CELL DISTRIBUTION WIDTH 13.8 % (10.0-14.5); WHITE BLOOD COUNT 11.8 10^3/uL (4.3-11.0)
[2018-02-18] MEDS ORDERED: LORazepam INJ 2 MG/ML (ATIVAN) VIAL IVP ONE (11:45)
[2018-02-18 12:00] LABS: AMPHETAMINE SCREEN, URINE NEGATIVE (NEGATIVE); BARBITURATE SCREEN URINE NEGATIVE (NEGATIVE); BENZODIAZEPINES SCREEN URINE POSITIVE (NEGATIVE); CANNABINOID SCREEN, URINE NEGATIVE (NEGATIVE); COCAINE SCREEN URINE NEGATIVE (NEGATIVE); METHADONE STAT NEGATIVE (NEGATIVE); METHAMPHETAMINE SCREEN URINE S NEGATIVE (NEGATIVE); OPIATE SCREEN URINE NEGATIVE (NEGATIVE); OXYCODONE STAT NEGATIVE (NEGATIVE); PROPOXYPHENE STAT NEGATIVE (NEGATIVE); TRICYCLIC ANTIDEPRESSANTS SCRE NEGATIVE (NEGATIVE)
[2018-02-18 12:05] LABS: ABG OXYGEN SATURATION 99 % (94-100); ABG PCO2 35 MMHG (35-45); ABG PH 7.37 (7.37-7.43); ABG PO2 124 MMHG (79-93); ABG TCO2 21.6 MMOL/L (21.0-31.0)
--- NOTE | 2018-02-18 12:05 | ED Cough/URI ---
General Chief Complaint: Respiratory Problems Stated Complaint: SOB Nursing Triage Note: PATIENT HERE FOR COMPLAINTS OF SOB. SHE LEFT AMA FROM ICU THIS MORNING. Source: patient Exam Limitations: no limitations History of Present Illness Date Seen by Provider: Feb 18, 2018 Time Seen by Provider: 12:04 Initial Comments To ER with shortness of breath. She was admitted last night ICU for the same complaint and left AGAINST MEDICAL ADVICE this morning at 6 AM. Timing/Duration: just prior to arrival Severity/Quality: mild Associated Symptoms: cough, shortness of breath, wheezing Allergies and Home Medications Allergies Coded Allergies: buspirone (Verified Allergy, Mild, 05/02/17) Made"legs Shaky" amitriptyline (Verified Allergy, Unknown, 05/02/17) " MAKES ME DO WEIRD THINGS LIKE WALK IN MY SLEEP AND HAVE HALLUCINATIONS." Home Medications Albuterol Sulfate 1 Puff Puff, 2 PUFF IH Q4H PRN for SHORTNESS OF BREATH, ( Reported) Aspirin 81 Mg Tablet.dr, 81 MG PO DAILY, (Reported) Azithromycin 250 Mg Tablet, 250 MG PO UD TAKE 2 TABLETS ON DAY ONE THEN TAKE 1 TABLET DAILY FOR FOUR MORE DAYS Prescribed by: ELLEN ACE on 02/18/18 1400 Fluticasone/Salmeterol 1 Each Blst.w.dev, 1 PUFF IH BID, (Reported) Furosemide 20 Mg Tablet, 20 MG PO DAILY, (Reported) Glimepiride 1 Mg Tablet, 1 MG PO DAILY PRN for WHEN TAKING PREDNISONE, (Reported ) Hydrocodone/Acetaminophen 1 Each Tablet, 1 EACH PO Q6H PRN for PAIN-MODERATE Prescribed by: ELLEN ACE on 01/19/18 1450 Ipratropium/Albuterol Sulfate 3 Ml Ampul.neb, 3 ML IH QID PRN for SHORTNESS OF BREATH, (Reported) Metoprolol Tartrate 25 Mg Tablet, 12.5 MG PO BID, (Reported) TAKES 1/2 (25MG) TABLET Ondansetron 4 Mg Tab.rapdis, 4 MG PO Q6H PRN for NAUSEA/VOMITING Prescribed by: ABIGAIL PASCUAL on 12/06/17 1434 Prednisone 20 Mg Tab, 40 MG PO DAILY Prescribed by: ELLEN ACE on 02/18/18 1400 Sacubitril/Valsartan 1 Each Tablet, 1 TAB PO BID, (Reported) Tiotropium Hyndman 1 Inh Aerp, 1 CAP IH DAILY, (Reported) Patient Home Medication List Home Medication List Reviewed: Yes Review of Systems Review of Systems Constitutional: see HPI EENTM: see HPI Respiratory: see HPI, cough, short of breath Cardiovascular: no symptoms reported Genitourinary: no symptoms reported Musculoskeletal: no symptoms reported Skin: no symptoms reported Psychiatric/Neurological: No Symptoms Reported Past Assbzrp-[id number]-Kgcruq Hx Patient Social History Alcohol Use: Denies Use Recreational Drug Use: No (4 YRS AGO) Drug of Choice: + IV METH, ALSO SMOKES IT; MULTIPLE BENZODIAZEPINE OD'S Type Used: Cigarettes 2nd Hand Smoke Exposure: Yes Recent Foreign Travel: No Contact w/Someone Who Travel: No Recent Infectious Disease Expo: No Recent Hopitalizations: Yes Immunizations Up To Date Tetanus Booster (TDap): Unknown Date of Pneumonia Vaccine: Dec 08, 2011 Date of Influenza Vaccine: Dec 31, 2017 Seasonal Allergies Seasonal Allergies: No Past Medical History Surgeries: Yes (EGD/COLONOSCOPY; CARDIAC CATH 09/18/17--NO INTERVENTION) Cardiac Respiratory: Yes (O2 AT 2-3L/NC) Pneumonia, Chronic Bronchitis, Sleep Apnea, COPD Currently Using CPAP: No Currently Using BIPAP: Yes Cardiac: Yes Cardiomyopathy, Coronary Artery Disease, High Cholesterol, Hypertension Neurological: Yes Headaches /Migraines 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 Disorders: No 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 Disorders: Denies 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 Sexually Transmitted Disease: No HIV/AIDS: No Genitourinary: No Gastrointestinal: Yes (GASTRITIS AND ESOPHAGEAL CANDIDIASIS 04/2017) Gastroesophageal Reflux, Gastrointestinal Bleed, Chronic Constipation, Chronic Diarrhea, Esophagitis, Ulcer Musculoskeletal: Yes (chronic shoulder and neck pain) Endocrine: Yes (DM- only while on steriods per pt) Diabetes, Non-Insulin dep HEENT: No Cancer: No Psychosocial: Yes (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) Sleep Difficulties, Anxiety, Suicide Attempts, Bipolar, Depression Integumentary: No Blood Disorders: Yes (ANEMIA) Adverse Reaction/Blood Tranf: No Family Medical History Cancer 03 MOTHER, Onset:66 (LUNG ) 09 BROTHER (LUNG ) Congestive heart failure 03 FATHER Heart Disease, Cancer Physical Exam Vital Signs - First Documented 02/18/18 02/18/18 11:18 11:37 Temp 97.0 Pulse 113 Resp 22 B/P (MAP) 165/101 (122) Pulse Ox 98 O2 Delivery Nasal Cannula O2 Flow Rate 3.00 Capillary Refill : Less Than 3 Seconds Height: 5'9.00" Weight: 201lbs. 0oz. 91.577149yn; 34.5 BMI Method:Stated General Appearance: WD/WN, no apparent distress, other (tachypnea but lung shay are clear on auscultation) Eyes: Bilateral Eye Normal Inspection, Bilateral Eye PERRL, Bilateral Eye EOMI HEENT: PERRL/EOMI, normal ENT inspection Respiratory: no accessory muscle use, other (tachypnea) Cardiovascular: regular rate, rhythm, no murmur Gastrointestinal: normal bowel sounds, non tender Neurologic/Psychiatric: alert, normal mood/affect, oriented x 3 Skin: normal color, warm/dry Progress/Results/Core Measures Suspected Sepsis Recent Fever Within 48 Hours: No Infection Criteria Present: Suspected New Infection New/Unexplained Altered Menta: No Sepsis Screen: Possible Sepsis Risk SIRS Temperature:97.0 Pulse: 113 Respiratory Rate: 22 Laboratory Tests 02/18/18 11:28: White Blood Count 11.8H Blood Pressure 165 /101 Mean: 122 Laboratory Tests 02/18/18 11:28: Creatinine 1.00, Platelet Count 273, Total Bilirubin 0.2 Results/Orders Lab Results Laboratory Tests Test 02/18/18 11:28 02/18/18 11:40 02/18/18 11:50 Range/Units White Blood Count 11.8 H 4.3-11.0 10^3/uL Red Blood Count 4.39 4.35-5.85 10^6/uL Hemoglobin 12.6 11.5-16.0 G/DL Hematocrit 39 35-52 % Mean Corpuscular Volume 89 80-99 FL Mean Corpuscular Hemoglobin 29 25-34 PG Mean Corpuscular Hemoglobin Concent 32 32-36 G/DL Red Cell Distribution Width 13.8 10.0-14.5 % Platelet Count 273 130-400 10^3/uL Mean Platelet Volume 9.9 7.4-10.4 FL Neutrophils (%) (Auto) 92 H 42-75 % Lymphocytes (%) (Auto) 7 L 12-44 % Monocytes (%) (Auto) 1 0-12 % Eosinophils (%) (Auto) 0 0-10 % Basophils (%) (Auto) 0 0-10 % Neutrophils # (Auto) 10.8 H 1.8-7.8 X 10^3 Lymphocytes # (Auto) 0.9 L 1.0-4.0 X 10^3 Monocytes # (Auto) 0.1 0.0-1.0 X 10^3 Eosinophils # (Auto) 0.0 0.0-0.3 10^3/uL Basophils # (Auto) 0.0 0.0-0.1 10^3/uL Neutrophils % (Manual) 89 % Lymphocytes % (Manual) 10 % Monocytes % (Manual) 1 % Eosinophils % (Manual) 0 % Basophils % (Manual) 0 % Band Neutrophils 0 % Blood Morphology Comment NORMAL Sodium Level 138 135-145 MMOL/L Potassium Level 3.6-5.0 MMOL/L Chloride Level 108 H 98-107 MMOL/L Carbon Dioxide Level 14 L 21-32 MMOL/L Anion Gap 16 H 5-14 MMOL/L Blood Urea Nitrogen 10 7-18 MG/DL Creatinine 1.00 0.60-1.30 MG/DL Estimat Glomerular Filtration Rate 58 BUN/Creatinine Ratio 10 Glucose Level 266 H 70-105 MG/DL Calcium Level 9.5 8.5-10.1 MG/DL Corrected Calcium 9.5 8.5-10.1 MG/DL Total Bilirubin 0.2 0.1-1.0 MG/DL Aspartate Amino Transf (AST/SGOT) 21 5-34 U/L Alanine Aminotransferase (ALT/SGPT) 13 0-55 U/L Alkaline Phosphatase 98 40-136 U/L B-Type Natriuretic Peptide 166.3 H <100.0 PG/ML Total Protein 7.4 6.4-8.2 GM/DL Albumin 4.0 3.2-4.5 GM/DL Urine Opiates Screen NEGATIVE NEGATIVE Urine Oxycodone Screen NEGATIVE NEGATIVE Urine Methadone Screen NEGATIVE NEGATIVE Urine Propoxyphene Screen NEGATIVE NEGATIVE Urine Barbiturates Screen NEGATIVE NEGATIVE Ur Tricyclic Antidepressants Screen NEGATIVE NEGATIVE Urine Phencyclidine Screen NEGATIVE NEGATIVE Urine Amphetamines Screen NEGATIVE NEGATIVE Urine Methamphetamines Screen NEGATIVE NEGATIVE Urine Benzodiazepines Screen POSITIVE H NEGATIVE Urine Cocaine Screen NEGATIVE NEGATIVE Urine Cannabinoids Screen NEGATIVE NEGATIVE Blood Gas Puncture Site R RAD Blood Gas Patient Temperature 97.0 Arterial Blood pH 7.37 7.37-7.43 Arterial Blood Partial Pressure CO2 35 35-45 MMHG Arterial Blood Partial Pressure O2 124 H 79-93 MMHG Arterial Blood HCO3 21 L 23-27 MMOL/L Arterial Blood Total CO2 21.6 21.0-31.0 MMOL/L Arterial Blood Oxygen Saturation 99 94-100 % Arterial Blood Base Excess -4.0 L -2.5-2.5 MMOL/L Torsten Test YES-POS Blood Gas Ventilator Setting NO Blood Gas Inspired Oxygen 2 L My Orders Orders - ELLEN ACE APRN BNP (02/18/18 12:05) Ekg Tracing (02/18/18 12:05) Chest 1 View, Ap/Pa Only (02/18/18 12:05) Lorazepam Injection (Ativan Injection) (02/18/18 12:45) Furosemide Injection (Lasix Injection) (02/18/18 13:00) Albuterol/Ipra Inhalation Soln (Duoneb I (02/18/18 13:00) Svn Small Volume Nebulizer (02/18/18 13:00) Ct Angio Chest W (02/18/18 13:00) Iohexol Injection (Omnipaque 350 Mg/Ml 1 (02/18/18 13:15) Contrast Received (Contrast Received) (02/18/18 13:15) Ns (Ivpb) (Sodium Chloride 0.9%) (02/18/18 13:15) Medications Given in ED Current Medications Medications Dose Ordered Sig/Vladimir Route Start Time Stop Time Status Last Admin Dose Admin Albuterol/ Ipratropium 3 ml STK-MED ONCE .ROUTE 02/18/18 11:23 02/18/18 11:25 DC 02/18/18 11:36 3 ML Furosemide 20 mg ONCE ONCE IVP 02/18/18 13:00 02/18/18 13:01 DC 02/18/18 13:33 20 MG Iohexol 125 ml ONCE ONCE IV 02/18/18 13:15 02/18/18 13:16 DC 02/18/18 13:33 125 ML Ipratropium Hyndman 0.5 mg ONCE ONCE IH 02/18/18 11:45 02/18/18 11:46 DC 02/18/18 11:37 0.5 MG Lorazepam 1 mg ONCE ONCE IVP 02/18/18 11:45 02/18/18 11:46 DC 02/18/18 11:30 1 MG Lorazepam 1 mg ONCE PRN IVP 02/18/18 12:45 02/18/18 13:00 1 MG Sodium Chloride 250 ml ONCE ONCE IV 02/18/18 13:15 12/13/18 13:16 DC 02/18/18 13:33 80 ML Vital Signs/I&O 02/18/18 02/18/18 02/18/18 02/18/18 11:18 11:37 11:39 13:34 Temp 97.0 Pulse 113 Resp 22 B/P (MAP) 165/101 (122) Pulse Ox 98 100 100 100 O2 Delivery Nasal Cannula Nasal Cannula Nasal Cannula O2 Flow Rate 3.00 3.00 3.00 Capillary Refill : Less Than 3 Seconds Blood Pressure Mean: 122 Departure Communication (Admissions) 1409-after the second DuoNeb treatment her lung sounds have cleared. She was also given 20 mg of IV Lasix for the vascular congestion without torres edema given her history of CHF. She does have diminished lung sounds throughout but there is no wheezing. Oxygen saturation is 99% on her baseline 3 L of oxygen which she wears all the time at home. Labs are unremarkable. We will discharge to home with prednisone and Zithromax. Patient is tearful now and states "I'm just tired". Impression Primary Impression: Hyperventilation Additional Impression: COPD (chronic obstructive pulmonary disease) Disposition: HOME, SELF-CARE Condition: Improved Departure-Patient Inst. Decision time for Depature: 13:58 Referrals: [facility] (PCP) Primary Care Physician ALIZA CARTER (Family) Primary Care Physician Patient Instructions: COPD Including Emphysema (DC) Add. Discharge Instructions: 1. Call [facility] today to make an appointment to be seen within 48 hours. All discharge instructions reviewed with patient and/or family. Voiced understanding. Scripts Azithromycin (Azithromycin) 250 Mg Tablet 250 MG PO UD, #6 TAB TAKE 2 TABLETS ON DAY ONE THEN TAKE 1 TABLET DAILY FOR FOUR MORE DAYS Prov: ELLEN ACE APRN 02/18/18 Prednisone (Prednisone) 20 Mg Tab 40 MG PO DAILY, #8 TAB Prov: ELLEN ACE APRN 02/18/18 ELLEN ACE APRN Feb 18, 2018 12:05
[2018-02-18 12:07] LABS: ALLENS TEST YES-POS; INSPIRED O2 2 L; VENTILATOR NO
--- OUTSIDE RECORDS SUMMARY | 2018-02-18 12:09 | XMS REPORT ---
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 Active 08486354 Problem Chronic bronchitis, unspecified chronic bronchitis type J42 Active 83571743 Problem COPD exacerbation J44.1 Active 760613306 Problem Examination of eyes and vision V72.0 Active 307592586 Problem Acute on chronic systolic congestive heart failure I50.23 Active 794670399 Problem Intractable cyclical vomiting with nausea G43.A1 Active 36879474 Problem Diabetes E11.9 Active 324049406 Problem Chronic obstructive pulmonary disease, unspecified COPD type J44.9 Active 45877401 Problem Anxiety F41.9 Active 95478888 Problem Migraine G43.909 Active 79714462 Problem TMJ (sprain of temporomandibular joint) S03.4XXA Active 38240894 Problem 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 Active Problem Tobacco abuse Z72.0 Active 08890551 Problem Bipolar disorder, unspecified F31.9 Active 24528866 Problem Bipolar disorder with depression F31.30 Active 54625620 Problem Chronic constipation K59.09 Active 545763751 Problem Generalized anxiety disorder F41.1 Active 42449507 Problem Memory loss R41.3 Active 47394843 Problem Other emphysema J43.8 Active 92171845 ALLERGIES Substance Reaction Event Type Date Status amitriptyline OD on medication, causes parasonias Non Drug Allergy Feb, Active Buspar 10 Mg Tablet made legs shaky Non Drug Allergy Feb, Active Benzodiazepines NARC ALERT Broke narc contract Non Drug Allergy Feb Active Narcotic NARC ALERT Broke Narc contract Non Drug Allergy Feb, Active ENCOUNTERS Encounter Location Date Diagnosis [facility] [id number] [place] [address] 71882- 3477 Feb, Diabetes E11.9 ; Chronic obstructive pulmonary disease with (acute) exacerbation J44.1 and Encounter for immunization Z23 [facility] [id number] [place] [address] 03605- 2580 Jan, COPD exacerbation J44.1 [facility] [id number] [place] [address] 40528- 4101 Jan, Dental abscess K04.7 [facility] [address] 46002- 5227 Jan, COPD exacerbation J44.1 and Acute on chronic systolic congestive heart failure I50.23 [facility] [id number] [place] [address] 22580- 8602 Dec, [facility] [id number] [place] [address] 60541- 9233 Dec, [facility] [id number] [place] [address] 91523- 1354 Nov, [facility] [id number] [place] [address] 95900- 0196 Nov, COPD with exacerbation J44.1 and Urinary tract infection without hematuria, site unspecified N39.0 [facility] [id number] [place] [address] 24036- 4285 Nov, Chronic obstructive pulmonary disease, unspecified COPD type J44.9 [facility] [id number] [place] [address] 57439- 4271 Oct, [facility] [id number] [place] [address] 62197- 3897 Oct, [facility] [id number] [place] [address] 05430- 7733 Oct, [facility] [address] [facility] [id number] [address] 5891 Oct, [facility] [address] [place] [address] 0684 Oct, Thrush B37.0 [facility] [id number] [place] [address]- 8393 Sep, COPD with exacerbation J44.1 and Anxiety F41.9 [facility] [address] [facility] [id number] [address]- 0[address] Sep, [facility] [address] [facility] [id number], [place] [address] 5046 Sep, [facility] [id number] [address]- 9697 Sep, [facility] [address], [place] [address] 5959 Sep, Acute congestive heart failure, unspecified heart failure type I50.9 and Anxiety disorder, unspecified F41.9 [facility] [address] [address] 0997 Sep, Heart failure, unspecified HF chronicity, unspecified heart failure type I50.9 [facility] [address] [address]- 5032 Sep, [facility] [address] [address]- 5227 Aug, Chronic obstructive pulmonary disease with acute exacerbation J44.1 [facility] [address] [facility] [id number] [place] [address]- 9176 Aug, [facility] [id number] [address]- 5685 Aug, [facility] [id number] [address]- 3270 July, [facility] [id number] [address]- 4821 July, [facility] [id number] [place] [address] 85617- 5897 July, Diabetes E11.9 and Chronic obstructive pulmonary disease with acute exacerbation J44.1 [facility] [id number] [place] [address] 02418- 2474 Jun, Chronic obstructive pulmonary disease with acute exacerbation J44.1 ; Diabetes E11.9 and Tobacco abuse Z72.0 [facility] [id number] [place] [address] 91032- 5675 Jun, [facility] [id number] [place] [address] 54281- 9471 Jun, [facility] [id number] [place] [address] 64465- 6571 May, [facility] [id number] [place] [address] 97800- 1019 May, [facility] [id number] [place] [address] 64538 -9225 17 May, 2017 [facility] [id number] [place] [address] 42601- 3259 16 May, 2017 [facility] [id number] [place] [address] 60688- 4539 15 May, 2017 [facility] [id number] [place] [address] 61244- 6218 14 May, 2017 Diarrhea, unspecified type R19.7 and Intractable cyclical vomiting with nausea G43.A1 [facility] [id number] [place] [address] 90850- 3025 12 May, 2017 [facility] [id number] [place] [address] 11437- 1767 05 May, 2017 [facility] [id number] [place] [address] 44954- 6327 28 Apr, 2017 COPD exacerbation J44.1 ; Esophageal candidiasis B37.81 ; Other acute gastritis with hemorrhage K29.01 and Acute posthemorrhagic anemia D62 [facility] [address] 45261- 7065 21 Apr, 2017 Viral illness B34.9 and COPD exacerbation J44.1 [facility] [address] 23794 -0430 Apr, Shortness of breath R06.02 and Pneumonia of both lower lobes due to infectious organism J18.9 [facility] [address] 15935 -1960 Mar, COPD with acute exacerbation J44.1 [place] [address] 70560- 9567 Mar, Chronic obstructive pulmonary disease with acute exacerbation J44.1 and Diabetes E11.9 [place] [address] 94623- 7696 Mar, [facility] [address] 13391- 2748 Mar, [facility] [address] 13080 -3504 Mar, COPD exacerbation J44.1 [facility] [address] 09787- 0893 Mar, [place] [address] 68388- 9649 Mar, Migraine G43.909 ; Hypokalemia E87.6 and Type 2 diabetes mellitus without complications E11.9 [facility] [address] 62112- 5653 Feb, [place] [address] 01456- 6017 Feb, [facility] [address] 03390- 6380 Feb, Methamphetamine use disorder, moderate, 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 ; Major depressive disorder, recurrent, moderate F33.1 ; Anxiety disorder, unspecified F41.9 and Tobacco abuse Z72.0 [place] [id number] [place] [address] 56360- 5325 30 Jan, 2017 Major depressive disorder, recurrent, moderate F33.1 [place] [address] 54803- 1037 Jan, [place] [id number] [place] [address] 38094- 7963 Jan, [place] [address] 46885- 0537 Jan, Major depressive disorder, recurrent, moderate F33.1 [place] [id number] [place] [address] 32022- 3474 Jan, Major depressive disorder, recurrent, moderate F33.1 ; Anxiety disorder, unspecified F41.9 ; Methamphetamine use disorder, moderate, 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 and Tobacco abuse Z72.0 [place] [address] 08970- 9838 Jan, [place] [id number] [place] [address] 58365- 5732 Jan, Chronic obstructive pulmonary disease with acute exacerbation J44.1 and Diabetes E11.9 [place] [id number] [place] [address] 07477- 1074 Jan, [place] [id number] [place] [address] 26218- 0985 Jan, [id number] [place] [address] 22036- 8525 Dec, Acute respiratory failure with hypoxia J96.01 ; Chronic bronchitis, unspecified chronic bronchitis type J42 and Tobacco use Z72.0 [place] [address] 23970- 8240 Dec, [facility] [id number] [id number] Nov, Dental caries K02.9 and Dental examination Z01.20 [facility] [id number] [place] [address] 33024- 5340 Nov, Major depressive disorder, recurrent, moderate F33.1 ; Anxiety disorder, unspecified F41.9 and 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 [facility] [id number] [place] [address] [id number] Oct, Dental examination Z01.20 [facility] [id number] [place] [address] 85443- 5598 Oct, [facility] [id number] [place] [address] 36917- 5633 Oct, Diabetes E11.9 and Thrush B37.0 [facility] [id number] [place] [address] 55724- 2421 Oct, [facility] [id number] [place] [address] 70022- 1491 Oct, [facility] [id number] [place] [address] 51443- 4598 Oct, [facility] [id number] [place] [address] 76783- 3908 Sep, Major depressive disorder, recurrent, moderate F33.1 ; Anxiety disorder, unspecified F41.9 and Bipolar disorder, unspecified F31.9 [facility] [address] [place] [address] 55630- 3746 Sep, Acute exacerbation of chronic obstructive pulmonary disease (COPD) J44.1 and Migraine G43.909 [facility] [address] [place] [address] 67971- 9648 Sep, [facility] [id number] [place] [address] [id number] Sep, [facility] [address], [place] [address]- 9467 Sep, Acute exacerbation of chronic obstructive pulmonary disease (COPD) J44.1 [facility] [address], [place] [address]72 Sep, Acute exacerbation of chronic obstructive pulmonary disease (COPD) J44.1 [facility] [id number] [place] [address] 71438- 9771 Aug, [facility] [id number] [place] [address] 13978- 3980 Aug, Major depressive disorder, recurrent, moderate F33.1 ; Anxiety disorder, unspecified F41.9 and 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 [facility] [address] [place] [address] 62831- 3413 19 Aug, 2016 Wheezing R06.2 ; Non morbid obesity due to excess calories E66.09 ; Migraine without aura and without status migrainosus, not intractable G43.009 and Tobacco abuse Z72.0 [facility] [id number] [place] [address] [id number] 14 Aug, 2016 Encounter for dental examination Z01.20 [facility] [id number] [place] [address] 62523- 5194 02 Aug, 2016 Major depressive disorder, recurrent, moderate F33.1 ; Anxiety disorder, unspecified F41.9 and Other stimulant dependence with unspecified stimulant-induced disorder 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 [facility] [address], [place] [address]- 8364 July, [facility] [id number] [place] [address] 73524- 0258 July, [facility] [id number] [place] [address] 07028- 2740 July, [facility] [id number] [place] [address] 89874- 9020 July, Diabetes E11.9 [facility] [id number] [place] [address] 28824- 9784 Jun, Major depressive disorder, recurrent, moderate F33.1 [facility] [id number] [place] [address] 51043- 4550 Jun, Major depressive disorder, recurrent, moderate F33.1 ; Other stimulant dependence with unspecified stimulant-induced disorder F15.29 ; Generalized anxiety disorder F41.1 and Bipolar disorder, unspecified F31.9 [facility] [id number] [place] [address] 71673- 2637 Jun, Diabetes E11.9 ; Migraine G43.909 ; Thrush B37.0 and Wheezing R06.2 [facility] [address] [id number] Jun, Dental examination Z01.20 [facility] [address] 32909- 2899 Jun, [facility] [address] 57567- 9789 Jun, Major depressive disorder, recurrent, moderate F33.1 ; Anxiety disorder, unspecified F41.9 and 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 [facility] [id number] [place] [address] 66319- 6932 Jun, [facility] [id number] [place] [address] 62238- 0775 Jun, Wheezing R06.2 [facility] [address] [id number] Jun, Dental caries K02.9 [facility] [id number] [place] [address] 78851- 7953 Jun, Major depressive disorder, recurrent, moderate F33.1 ; Anxiety disorder, unspecified F41.9 and 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 [facility] [id number] [place] [address] 78255- 4871 Jun, RLQ abdominal pain R10.31 ; Diabetes E11.9 ; Obesity, unspecified obesity severity, unspecified obesity type E66.9 ; Wheezing R06.2 and Abnormal urinalysis R82.90 [place] [id number] [place] [address] 95402- 9834 May, [place] [address] 60202- 7811 May, Well woman exam Z01.419 ; Breast cancer screening Z12.39 ; Cervical cancer screening Z12.4 ; Urinary frequency R35.0 ; Edema, unspecified type R60.9 and Chronic constipation K59.09 [place] [address] [place] [address] 12025- 9526 May, Major depressive disorder, recurrent, moderate F33.1 ; Anxiety disorder, unspecified F41.9 and 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 [facility] [address] [place] [address] [id number] May, Dental examination Z01.20 [place] [id number] [place] [address] 74661- 3218 May, [place] [id number] [place] [address] 20294- 7913 May, [place] [id number] [place] [address] 92678- 7509 May, Chronic constipation K59.09 [place] [id number] [place] [address] 00501- 0649 Apr, [place] [id number] [place] [address] 97041- 9498 Apr, Major depressive disorder, recurrent, moderate F33.1 ; Anxiety disorder, unspecified F41.9 and 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 [place] [address] [place] [address]- 0043 Apr, [place] [id number] [place] [address] 07107- 0924 Mar, Major depressive disorder, recurrent, moderate F33.1 [place] [id number] [place] [address] 06756- 5938 Mar, Major depressive disorder, recurrent, moderate F33.1 ; Generalized anxiety disorder F41.1 and Bipolar I disorder, most recent episode depressed with anxious distress F31.30 [place] [address] [place] [address] 81686- 9911 Mar, Diabetes E11.9 ; Non morbid obesity due to excess calories E66.09 ; Breast cancer screening Z12.39 and Encounter for immunization Z23 [place] [id number] [place] [address] 17989- 1878 Mar, Major depressive disorder, recurrent, moderate F33.1 ; Anxiety disorder, unspecified F41.9 and 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 [place] [address] [place] [address] 37123- 5723 Mar, [place] [id number] [place] [address] 13683- 7506 Feb, Major depressive disorder, recurrent, moderate F33.1 ; Anxiety disorder, unspecified F41.9 and 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 [place] [address] [place] [address] 88655- 1809 Feb, [place] [address] [place] [address] 74454- 4321 Feb, [place] [id number] [place] [address] 65861- 8082 Jan, Major depressive disorder, recurrent, moderate F33.1 ; Generalized anxiety disorder F41.1 and Bipolar disorder, current episode depressed, severe, without psychotic features F31.4 [place] [address] [address]- 4244 Jan, Major depressive disorder, recurrent, moderate F33.1 ; Anxiety disorder, unspecified F41.9 and Other 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 [facility] [address], [place] [address]- 9204 Jan, Bronchitis J40 [facility] [id number] [place] [address] 65001- 2980 Jan, [place] [address] [place] [address] 47345- 3963 Jan, [place] [address] [place] [address] 62628- 4441 Jan, Elbow injury, right, initial encounter S59.901A ; Multiple contusions T14.8 and Cervical strain, acute, initial encounter S16.1XXA [place] [address] [place] [address] 00969- 9923 Dec, Major depressive disorder, recurrent, moderate F33.1 ; Generalized anxiety disorder F41.1 and Bipolar disorder with depression F31.30 [place] [id number] [place] [address] 88465- 9484 Dec, [place] [address] [address]- 4485 Dec, [place] [address] [address]- 4969 Dec, [place] [id number] [address]- 5442 Dec, [place] [address] [place] [address] 60620- 3843 Dec, Yeast infection B37.9 [place] [id number] [address]- 9700 Dec, Pneumonia of both lungs due to methicillin resistant Staphylococcus aureus (MRSA), unspecified part of lung J15.212 and Benzodiazepine overdose, accidental or unintentional, subsequent encounter T42.4X1D [facility] [id number] [place] [address] 34803- 3224 Dec, [facility] [id number] [place] [address] 96520- 5734 Dec, [place] [id number] [place] [address] 90582- 1472 Dec, Knee pain, left M25.562 and Edema, unspecified type R60.9 [place] [id number] [place] [address] 57515- 5650 Dec, [place] [id number] [place] [address] 37350- 4103 Dec, Anxiety disorder, unspecified F41.9 and Bipolar disorder, unspecified F31.9 [place] [id number] [place] [address] 77803- 5699 Nov, Major depressive disorder, recurrent, moderate F33.1 ; Anxiety disorder, unspecified F41.9 and 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 [place] [id number] [place] [address] 39617- 5441 Nov, [place] [address] [place] [id number] [place] [address] [id number]- 1222 Nov, Migraine without aura and without status migrainosus, not intractable G43.009 [facility] [id number] [place] [address] 42459- 5798 Nov, Migraine G43.909 [place] [address] [place] [id number] [place] [address] 04713- 3303 Nov, [place] [address] [place] [id number] [place] [address] 40975- 4297 Nov, Major depressive disorder, recurrent, moderate F33.1 ; Anxiety disorder, unspecified F41.9 and 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 [place] [address] [place] [id number] [place] [address] 72255- 3399 Oct, Chronic constipation K59.09 and Obesity, unspecified obesity severity, unspecified obesity type E66.9 [place] [address] [place] [id number] [place] [address] 28026- 6056 Oct, Obesity, unspecified obesity severity, unspecified obesity type E66.9 ; Chronic constipation K59.09 and Anxiety disorder, unspecified F41.9 [place] [address] [place] [id number] [place] [address] 46534- 7389 Oct, [place] [address] [address]- [address] Sep, Diabetes E11.9 ; Edema, unspecified type R60.9 ; Varicose vein of leg I83.90 and Obesity, unspecified obesity severity, unspecified obesity type E66.9 [facility] [id number] [place] [address] 14755- 4021 Sep, Edema, unspecified type R60.9 ; Diabetes E11.9 and Knee pain , left M25.562 [facility] [id number] [place] [address] 10923- 7101 Sep, [facility] [id number] [place] [address] 55592- 2833 Sep, [facility] [id number] [place] [address] 37802- 7265 Sep, Major depressive disorder, recurrent, moderate F33.1 ; Generalized anxiety disorder F41.1 and Bipolar disorder, unspecified F31.9 [facility] [id number] [place] [address] 13211- 3546 Aug, Chondromalacia of left knee M94.262 [facility] [id number] [place] [address] 42914- 1738 Aug, Major depressive disorder, recurrent, moderate F33.1 ; Anxiety disorder, unspecified F41.9 and 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 [facility] [id number] [place] [address] 95107- 3893 15 Aug, 2015 [facility] [id number] [place] [address] 37813- 9444 06 Aug, 2015 Osteoarthritis of left knee M17.9 [facility] [id number] [place] [address] 34218- 5801 Aug, [facility] [id number] [place] [address] 48348- 4738 July, Major depressive disorder, recurrent, moderate F33.1 ; Anxiety disorder, unspecified F41.9 and 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 [facility] [id number] [place] [address] 12862- 5420 July, [facility] [id number] [place] [address] 12181- 9249 July, Chronic constipation K59.09 [facility] [id number] [place] [address] 98434- 1287 Jun, [facility] [id number] [place] [address] 64604- 8412 15 Jun, 2015 [facility] [id number] [place] [address] 44109- 2922 14 Jun, 2015 Osteoarthritis of left knee M17.9 [facility] [address] [address]- 3531 Jun, [facility] [id number] [place] [address] 29693- 6751 Jun, Generalized anxiety disorder F41.1 ; Bipolar disorder, unspecified F31.9 and Major depressive disorder, recurrent, moderate F33.1 [facility] [address] [address]- 4278 07 Jun, 2015 Migraine G43.909 [facility] [id number] [place] [address] 83827- 6254 Jun, Left knee pain M25.562 ; Chronic constipation K59.09 ; Dry mouth R68.2 ; Yeast vaginitis B37.3 and Memory loss R41.3 [facility] [id number] [place] [address] 99193- 4944 Jun, [facility] [address] 89570- 4256 May, [facility] [address] 05289- 8471 May, [facility] [address] 02462- 5257 May, [facility] [address] 67365- 1250 May, [facility] [address] 74589- 9929 May, Acute bronchitis with COPD J44.0 ; Knee pain, left M25.562 and Encounter for tobacco use cessation counseling Z71.6 [facility] [address] 54470- 1072 May, [facility] [address] 44777- 3866 Apr, Diabetes E11.9 ; TMJ (sprain of temporomandibular joint) S03.4XXA ; Tobacco abuse Z72.0 ; Migraine G43.909 and Anxiety F41.9 [facility] [address] 18155- 5998 Apr, Generalized anxiety disorder F41.1 and Bipolar disorder, unspecified F31.9 [facility] [id number] [place] [address] 84795- 3742 Apr, Major depressive disorder, recurrent, moderate F33.1 ; Anxiety disorder, unspecified F41.9 and 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 [facility] [id number] [place] [address] 77293- 1556 04 Apr, 2015 [facility] [id number] [place] [address] 27471- 5316 Mar, [facility] [id number] [place] [address] 02938- 5816 Feb, [facility] [id number] [place] [address] 91562- 7878 Feb, Major depressive disorder, recurrent, moderate F33.1 ; Anxiety disorder, unspecified F41.9 and 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 [facility] [id number] [place] [address] 84297- 3816 Feb, [facility] [id number] [place] [address] 76512- 9264 Feb, Generalized anxiety disorder F41.1 and Bipolar disorder, unspecified F31.9 [facility] [id number] [place] [address] 56703- 3626 30 Jan, 2015 [facility] [id number] [place] [address] 72313- 2953 18 Jan, 2015 [facility] [id number] [place] [address] 47454- 4639 Jan, Bipolar disorder, unspecified F31.9 and Generalized anxiety disorder F41.1 [facility] [id number] [place] [address] 83511- 5086 Dec, [facility] [id number] [place] [address] 27431- 5169 14 Dec, 2014 Bipolar disorder, unspecified F31.9 and Generalized anxiety disorder F41.1 [facility] [address] [address]- 6945 Dec, Generalized anxiety disorder F41.1 and Major depressive disorder, recurrent, moderate F33.1 [facility] [id number] [place] [address] 66339- 3642 Oct, Headache 784.0 ; Cough 786.2 ; Vomiting and diarrhea 787.03 and Dysuria 788.1 [facility] [id number] [place] [address] 23719- 0727 Aug, [facility] [address] 05743- 6935 Aug, Headache 784.0 and Shortness of breath 786.05 [facility] [id number] [place] [address] 47769- 4539 Aug, [facility] [id number] [place] [address] 61906- 7326 Aug, Migraine 346.90 [facility] [id number] [place] [address] 96229- 1126 Jun, [facility] [id number] [place] [address] 77469- 6493 Jun, [facility] [id number] [place] [address] 80380- 5642 May, [facility] [id number] [place] [address] 84949- 3087 May, [facility] [id number] [place] [address] 49819- 9817 May, [facility] [id number] [place] [address] 46913- 4047 May, [facility] [id number] [place] [address] 28834- 4806 May, [facility] [id number] [place] [address] 01785- 5930 May, [facility] [id number] [place] [address] 80805- 6195 Apr, [facility] [place] [facility] [address] [id number] [place] [address]- 8727 Apr, 2014 [facility] [place] [facility] [address] [id number] [place] [address]- 1439 Apr, 2014 [facility] [place] [facility] [address] [id number] [place] [address]- 5242 Apr, 2014 [facility] [place] [facility] [address] [id number] [place] [address]- 2166 Apr, [facility] [place] [facility] [address] [id number] [place] [address]- 0179 Mar, [facility] [place] [facility] [address] [id number] [place] [address]- 0902 Mar, [facility] [place] [facility] [address] [id number] [place] [address]- 6190 Mar, [facility] [place] [facility] [address] [id number] [place] [address]- 2528 Mar, [facility] [place] [facility] [address] [id number] [place] [address]- 0744 Feb, [facility] [place] [facility] [address] [id number] [place] [address]- 6817 Feb, [facility] [place] [facility] [address] [id number] [place] [address]- 9692 18 Feb, 2014 [facility] [place] [facility] [address] [id number] [address]- 1683 18 Feb, 2014 [facility] [place] [facility] [address] [id number] [place] [address]- 8503 16 Feb, 2014 [facility] [place] [facility] [address] [id number] [place] [address]- 7732 16 Feb, 2014 [facility] [place] [facility] [address] [id number] [place] [address]- 7169 11 Feb, 2014 [facility] [place] [facility] [address] [id number] [address]- 4508 Feb, [facility] [place] [facility] [address] [id number] [place] [address]- 2422 Feb, [facility] [place] [facility] [address] [id number] [place] 6734 Feb, [facility] [place] [facility] [address] [facility] [id number] [place] 9150 Feb, [facility] [place] [facility] [address] [id number] [place] [address]- 9040 Feb, [facility] [place] [facility] [address] [id number] [place] [address]- 9489 Jan, [facility] [place] [facility] [address] [id number] [place] [address]- 0709 Jan, [facility] [place] [facility] [address] [facility] [id number] [place] [address]- 0842 Dec, [facility] [place] [facility] [address] [id number] [place] [address]- 6892 Dec, [facility] [place] [facility] [address] [facility] [id number] [place] [address]- 4841 Dec, [facility] [place] [facility] [address] [facility] [id number] [place] [address]- 2287 Dec, [facility] [place] [facility] [address] [facility] [id number] [place] [address]- 2323 Dec, [facility] [place] [facility] [address] [facility] [id number] [address]- 3562 Dec, [facility] [place] [facility] [address] [id number] [place] [address]- 1670 Sep, [facility] [place] [facility] [address] [facility] [id number] [place] 6926 Sep, [facility] [place] [facility] [address] [facility] [id number] [place] [address]- 2142 Sep, [facility] [place] [facility] [address] [id number] [place] [address]- 2533 Sep, 2013 [facility] [place] [facility] [address] [id number] [place] [address]- 6382 Sep, 2013 [facility] [place] [facility] [address] [id number] [place] [address]- 5413 14 Sep, 2013 [facility] [place] [facility] [address] [id number] [place] [address]- 0398 Sep, 2013 [facility] [place] [facility] [address] [id number] [place] [address]- 9689 Sep, 2013 [facility] [place] [facility] [address] [id number] [place] [address]- 6777 Sep, 2013 [facility] [place] [facility] [address] [id number] [place] [address]- 2427 Sep, 2013 [facility] [place] [facility] [address] [id number] [place] [address]- 7733 24 Aug, 2013 [facility] [place] [facility] [address] [id number] [place] [address]- 2454 Aug, [facility] [place] [facility] [address] [id number] [place] [address]- 4754 Aug, [facility] [place] [facility] [address] [id number] [place] [address]- 4429 17 Aug, 2013 [facility] [place] [facility] [address] [id number] [place] [address]- 7972 17 Aug, 2013 [facility] [place] [facility] [address] [id number] [place] [address]- 6351 14 Aug, 2013 [facility] [place] [facility] [address] [id number] [place] [address]- 5971 14 Aug, 2013 [facility] [place] [facility] [address] [id number] [place] [address]- 5165 Aug, [facility] [place] [facility] [address] [id number] [place] [address]- 7711 Aug, [facility] [place] [facility] [address] [id number] [place] [address]- 4896 Aug, [facility] [place] [facility] [address] [id number] [place] [address]- 2097 Aug, [facility] [place] [facility] [address] [id number] [place] [address]- 5148 Aug, [facility] [place] [facility] [address] [id number] [place] [address]- 5825 Aug, [facility] [place] [facility] [address] [id number] [place] [address]- 0164 July, [facility] [place] [facility] [address] [id number] [place] [address]- 1603 July, [facility] [place] [facility] [address] [id number] [place] [address]- 3357 July, [facility] [place] [facility] [address] [id number] [place] [address]- 8148 July, [facility] [place] [facility] [address] [id number] [place] [address]- 3073 July, [facility] [place] [facility] [address] [id number] [place] [address]- 7456 July, [facility] [place] [facility] [address] [id number] [place] [address]- 6225 July, [facility] [place] [facility] [address] [id number] [place] [address]- 7813 Jun, [facility] [place] [facility] [address] [id number] [place] [address]- 5344 Jun, [facility] [place] [facility] [address] [id number] [place] [address]- 7008 Jun, [facility] [place] [facility] [address] [id number] [place] [address]- 2055 Jun, [facility] [place] [facility] [address] [id number] [place] [address]- 8171 16 Jun, 2013 [facility] [place] [facility] [address] [id number] [place] [address]- 2801 08 Jun, 2013 [facility] [place] [facility] [address] [id number] [place] [address]- 2851 08 Jun, 2013 [facility] [place] [facility] [address] [id number] [place] [address]- 9108 17 May, 2013 [facility] [place] [facility] [address] [id number] [place] [address]- 6328 17 May, 2013 [facility] [place] [facility] [address] [id number] [place] [address]- 6996 14 May, 2013 [facility] [place] [facility] [address] [id number] [place] [address]- 2494 14 May, 2013 [facility] [place] [facility] [address] [id number] [place] [address]- 0679 13 May, 2013 [facility] [place] [facility] [address] [id number] [place] [address]- 4103 13 May, 2013 [facility] [place] [facility] [address] [id number] [place] [address]- 1138 10 May, 2013 [facility] [place] [facility] [address] [facility] [id number] [place] [address]- 2493 10 May, 2013 [facility] [place] [facility] [address] [id number] [place] [address]- 2208 07 May, 2013 [facility] [place] [facility] [address] [id number] [place] [address]- 7783 26 Apr, 2013 [facility] [place] [facility] [address] [id number] [place] 6419 26 Apr, 2013 [facility] [place] [facility] [address] [id number] [place] [address]- 0217 18 Apr, 2013 [facility] [place] [facility] [address] [id number] [place] [address]- 3782 Apr, [facility] [place] [facility] [address] [id number] [place] [address]- 0702 Apr, [facility] [place] [facility] [address] [id number] [place] [address]- 0896 Apr, [facility] [place] [facility] [address] [id number] [place] [address]- 9758 Apr, [facility] [place] [facility] [address] [id number] [place] [address]- 1121 Apr, [facility] [place] [facility] [address] [id number] [place] [address]- 7415 Apr, [facility] [place] [facility] [address] [id number] [place] [address]- 7572 Apr, [facility] [place] [facility] [address] [id number] [place] [address]- 8113 Mar, [facility] [place] [facility] [address] [id number] [place] [address]- 6610 Mar, [facility] [place] [facility] [address] [id number] [place] [address]- 8490 Mar, [facility] [place] [facility] [address] [facility] [id number] [place] [address]- 4285 Mar, [facility] [place] [facility] [address] [id number], [place] [address]- 3028 Mar, [facility] [place] [facility] [address] [id number], [place] [address]- 2689 Mar, [facility] [place] [facility] [address] [id number] [place] [address]- 8349 Mar, [facility] [place] [facility] [address] [id number] [place] [address]- 8504 Mar, [facility] [place] [facility] [address] [id number] [place] [address]- 4857 Feb, [facility] [place] [facility] [address] [id number] [place] [address]- 3259 10 Feb, 2013 [facility] [address] [id number] [place] [address]- 1765 Jan, [facility] [place] [facility] [address] [id number] [place] [address]- 2441 18 Jan, 2013 [facility] [address] [id number] [place] [address]- 5443 15 Jan, 2013 [facility] [place] [facility] [address] [id number] [place] [address]- 5478 15 Jan, 2013 [facility] [address] [id number] [place] [address]- 0075 Jan, [facility] [place] [facility] [address] [id number] [place] [address]- 8908 Jan, [facility] [address] [id number] [place] [address]- 7731 Jan, [facility] [address] [id number] [place] [address]- 3243 05 Jan, 2013 [facility] [place] [facility] [address] [id number] [place] [address]- 2371 Dec, [facility] [address] [id number] [place] [address]- 9929 Dec, [facility] [place] [facility] [address] [id number] [place] [address]- 2013 10 Dec, 2012 [facility] [place] [facility] [address] [id number] [place] [address]- 9664 20 Nov, 2012 [facility] [place] [facility] [address] [id number] [place] [address]- 3175 13 Nov, 2012 [facility] [place] [facility] [address] [id number] [place] [address]- 8456 12 Nov, 2012 [facility] [place] [facility] [address] [id number] [place] [address]- 1612 Nov, [facility] [place] [facility] [address] [id number] [place] [address]- 5671 Nov, [facility] [place] [facility] [address] [id number] [place] [address]- 1443 Nov, [facility] [place] [facility] [address] [id number] [place] [address]- 6278 Oct, [facility] [place] [facility] [address] [id number] [place] [address]- 9197 Oct, [facility] [place] [facility] [address] [id number] [place] [address] Sep, [facility] [place] [facility] [address] [id number] [place] [address] Sep, [facility] [place] [facility] [address] [id number] [place] [address] Sep, [facility] [place] [facility] [address] [id number] [place] [address] Sep, [facility] [place] [facility] [address] [id number] [place] [address] Sep, [facility] [place] [facility] [address] [id number] [place] [address] Sep, [facility] [place] [facility] [address] [id number] [place] [address] Sep, [facility] [place] [facility] [address] [id number] [place] [address] Aug, [facility] [place] [facility] [address] [id number] [place] [address] Aug, [facility] [place] [facility] [address] [id number] [place] [address] Aug, [facility] [place] [facility] [address] [id number] [place] [address] Aug, [facility] [place] [facility] [address] [id number] [place] [address] Aug, [facility] [address] [id number] [place] [address] Aug, [facility] [address] [id number] [place] [address] July, [facility] [address] [id number] [place] [address] July, [facility] [address] [id number] [place] [address] July, [facility] [address] [id number] [place] [address] July, [facility] [address] [id number] [place] [address] July, [facility] [address] [id number] [place] [address] 2018 July, [facility] [address] [id number] [place] [address] Jun, [facility] [address] [id number] [place] [address] Jun, [facility] [address] [id number] [place] [address] Jun, [facility] [address] [id number] [place] [address] Jun, [facility] [place] [facility] [address] [id number] [place] [address] Jun, [facility] [place] [facility] [address] [id number] [place] [address] Jun, [facility] [place] [facility] [address] [id number] [place] [address] Jun, [facility] [place] [facility] [address] [id number] [place] [address] May, [facility] [place] [facility] [address] [id number] [place] [address] May, [facility] [address] [id number] [place] [address] Apr, 2012 [facility] [place] [facility] [address] [id number] [place] [address] Apr, [facility] [place] [facility] [address] [id number] [place] [address] Apr, 2012 [facility] [place] [facility] [address] [id number] [place] [address] Apr, 2012 [facility] [place] [facility] [address] [id number] [place] [address] Apr, [facility] [facility] [address] [id number] [place] [address] 08 Apr, 2012 [facility] [place] [facility] [address] [id number] [place] [address] 07 Apr, 2012 [facility] [place] [facility] [address] [id number] [place] [address] 07 Apr, 2012 [facility] [place] [facility] [address] [id number] [place] [address] 06 Apr, 2012 [facility] [address] [id number] [place] [address] 25[address] Apr, [facility] [place] [facility] [address] [id number] [place] [address] Apr, [facility] [place] [facility] [address] [id number] [place] [address] 25[address] Mar, [facility] [place] [facility] [address] [id number] [place] [address] 25[address] Mar, [facility] [place] [facility] [address] [id number] [place] [address] Mar, [facility] [place] [facility] [address] [id number] [place] [address] Mar, [facility] [address] [id number] [place] [address] Mar, [facility] [address] [id number] [place] [address] Mar, [facility] [address] [id number] [place] [address] Mar, [facility] [address] [id number] [place] [address] 15 Mar, 2012 [facility] [address] [id number] [place] [address] Mar, [facility] [address] [id number] [place] [address] Mar, [facility] [address] [id number] [place] [address] Mar, [facility] [address] [id number] [place] [address] Mar, [facility] [address] [id number] [place] [address] Mar, [facility] [address] [id number] [place] [address] Feb, [facility] [address] [id number] [place] [address] Feb, [facility] [address] [id number] [place] [address] Feb, [facility] [address] [id number] [place] [address] Feb, [facility] [address] [id number] [place] [address] Feb, [facility] [address] [id number] [place] [address] Feb, [facility] [place] [facility] [address] [id number] [place] [address] Feb, [facility] [place] [facility] [address] [id number] [place] [address] Feb, [facility] [place] [facility] [address] [id number] [place] [address] Feb, [facility] [place] [facility] [address] [id number] [place] [address] Feb, [facility] [place] [facility] [address] [id number] [place] [address] 14[address] Feb, [facility] [place] [facility] [address] [id number] [place] [address] 134[address] Feb, [facility] [place] [facility] [address] [id number] [place] [address] Feb, [facility] [place] [facility] [address] [id number] [place] [address] Feb, [facility] [place] [facility] [address] [id number] [place] [address] Feb, [facility] [place] [facility] [address] [id number] [place] [address] 69[address] Jan, [facility] [place] [facility] [address] [id number] [place] [address] Jan, [facility] [place] [facility] [address] [id number] [place] [address] 0[address] Jan, [facility] [place] [facility] [address] [id number] [place] [address] 1596 Jan, [facility] [place] [facility] [address] [id number] [place] [address] 90[address] Dec, [facility] [place] [facility] [address] [id number] [place] [address] Dec, [facility] [place] [facility] [address] [id number] [place] [address]- 8691 Dec, [facility] [place] [facility] [address] [id number] [place] [address] Dec, [facility] [place] [facility] [address] [id number] [place] [address] Dec, [facility] [place] [facility] [address] [id number] [place] [address] Dec, [facility] [place] [facility] [address] [id number], [place] [address] Dec, [facility] [place] [facility] [address] [id number] [place] [address]- 96[address] 16 Dec, 2011 [facility] [place] [facility] [address] [id number], [place] [address] Dec, [facility] [place] [facility] [address] [id number] [place] [address]- 9483 04 Dec, 2011 [facility] [place] [facility] [address] [id number], [place] [address] 03 Dec, 2011 [facility] [place] [facility] [address] [id number], [place] [address] 25 Sep, 2011 [facility] [place] [facility] [address] [id number], [place] [address] 24 Sep, 2011 [facility] [place] [facility] [address] [id number], [place] [address] 20 Sep, 2011 [facility] [place] [facility] [address] [id number], [place] [address] 2544 19 Sep, 2011 [facility] [place] [facility] [address] [id number], [place] [address] 8116 17 Sep, 2011 [facility] [place] [facility] [address] [id number], [place] [address] 0014 16 Sep, 2011 [facility] [place] [facility] [address] [id number], [place] [address] 14 Sep, 2011 [facility] [place] [facility] [address] [id number] [place] [address] 8596 13 Sep, 2011 [facility] [place] [facility] [address] [id number] [place] [address]- 8616 12 Sep, 2011 [facility] [place] [facility] [address] [id number] [place] [address] 2546 07 Sep, 2011 [facility] [place] [facility] [address] [id number] [place] [address] 2546 06 Sep, 2011 [facility] [place] [facility] [address] [id number] [place] [address] 2546 06 Sep, 2011 [facility] [place] [facility] [address] [id number] [place] [address]- 7828 05 Sep, 2011 [facility] [place] [facility] [address] [id number] [place] [address]- 0763 29 Oct, 2011 [facility] [place] [facility] [address] [id number] [place] [address]- 1810 29 Oct, 2011 [facility] [place] [facility] [address] [id number] [place] [address] 2543 28 Oct, 2011 [facility] [place] [facility] [address] [id number] [place] [address] 254 28 Oct, 2011 [facility] [place] [facility] [address] [id number] [place] [address]- 2542 23 Oct, 2011 [facility] [place] [facility] [address] [id number] [place] [address] 2546 Oct, [facility] [place] [facility] [address] [id number] [place] [address]- 2545 20 Oct, 2011 [facility] [place] [facility] [address] [id number] [place] [address] 2546 16 Oct, 2011 [facility] [place] [facility] [address] [id number] [place] [address]- 2546 15 Oct, 2011 [facility] [place] [facility] [address] [id number] [place] [address] 2544 Oct, [facility] [place] [facility] [address] [id number] [place] [address]- 1869 Oct, [facility] [place] [facility] [address] [id number] [place] [address]- 4214 Sep, [facility] [place] [facility] [address] [id number] [place] [address]- 5994 Sep, [facility] [place] [facility] [address] [id number] [place] [address]- 9524 Sep, [facility] [address] [id number] [place] [address]- 9973 Sep, [facility] [address] [id number] [place] [address]- 4699 Sep, [facility] [address] [id number] [place] [address]- 6620 Sep, [facility] [address] [id number] [place] [address]- 5481 Aug, [facility] [address] [id number] [place] [address] 239[address] July, [facility] [address] [id number] [place] [address]- 57[address] July, [facility] [place] [facility] [address] [id number] [place] [address]- 7471 Jun, [facility] [place] [facility] [address] [id number] [place] [address]- 3777 Jun, [facility] [place] [facility] [address] [id number] [place] [address]- 5080 Jun, [facility] [place] [facility] [address] [id number] [place] [address]- 4022 Jun, [facility] [place] [facility] [address] [id number] [place] [address]- 1136 Jun, [facility] [place] [facility] [address] [id number] [place] [address]- 3670 10 Jun, 2011 [facility] [address] [id number] [place] [address]- 9163 09 Jun, 2011 [facility] [place] [facility] [address] [id number] [place] [address]- 1272 08 Jun, 2011 [facility] [place] [facility] [address] [id number] [place] [address]- 3075 Jun, [facility] [place] [facility] [address] [id number] [place] [address]- 7680 Jun, [facility] [place] [facility] [address] [id number] [place] [address]- 9747 Jun, [facility] [place] [facility] [address] [id number] [place] [address]- 7132 19 May, 2011 [facility] [place] [facility] [address] [facility] [id number] [place] [address]- 4512 16 May, 2011 [facility] [place] [facility] [address] [id number] [place] [address]- 0543 14 May, 2011 [facility] [place] [facility] [address] [id number] [place] [address]- 4622 06 May, 2011 [facility] [place] [facility] [address] [facility] [id number] [place] [address]- 6527 28 Apr, 2011 [facility] [place] [facility] [address] [id number] [place] [address]- 5211 Apr, [facility] [place] [facility] [address] [id number] [place] [address]- 5583 27 Apr, 2011 [facility] [place] [facility] [address] [id number] [place] [address]- 5695 23 Apr, 2011 [facility] [place] [facility] [address] [id number] [place] [address]- 2225 Apr, [facility] [place] [facility] [address] [facility] [id number] [place] [address]- 0286 22 Apr, 2011 [facility] [place] [facility] [address] [id number] [place] [address]- 1093 Apr, [facility] [address] [id number] [place] [address]- 0335 Apr, [facility] [address] [id number] [place] [address]- 0402 Mar, [facility] [address] [id number] [place] [address]- 3392 Mar, [facility] [address] [id number] [place] [address]- 6509 Mar, [facility] [address] [id number] [place] [address]- 2072 Mar, [facility] [address] [id number] [place] [address]- 9726 Mar, [facility] [address] [id number] [place] [address]- 9403 Mar, [facility] [address] [id number] [place] [address]- 7392 Mar, [facility] [address] [id number] [place] [address]- 5746 Mar, [facility] [address] [id number] [place] [address]- 8230 Mar, [facility] [address] [id number] [place] [address]- 7803 Mar, [facility] [place] [facility] [address] [id number] [place] [address]- 0217 Mar, [facility] [place] [facility] [address] [id number] [place] [address]- 0096 Mar, [facility] [address] [id number] [place] [address]- 2542 Mar, [facility] [address] [id number] [place] [address]- 9061 Mar, [facility] [place] [facility] [address] [id number] [place] [address]- 2651 Mar, [facility] [place] [facility] [address] [id number] [place] [address] Mar, [facility] [place] [facility] [address] [id number] [place] [address]- 4053 Feb, [facility] [place] [facility] [address] [id number] [place] [address]- 6169 Feb, [facility] [place] [facility] [address] [id number] [place] [address]- 1380 Feb, [facility] [place] [facility] [address] [id number] [place] [address]- 1266 Jan, [facility] [place] [facility] [address] [id number] [place] [address]- 3462 Jan, [facility] [place] [facility] [address] [id number] [place] [address]- 9081 Jan, [facility] [place] [facility] [address] [id number] [place] [address]- 4477 Dec, [facility] [place] [facility] [address] [id number] [place] [address]- 6409 Dec, [facility] [place] [facility] [address] [id number] [place] [address]- 1581 Nov, [facility] [place] [facility] [address] [id number] [place] [address]- 4722 Oct, [facility] [place] [facility] [address] [id number] [place] [address]- 0104 Oct, [facility] [place] [facility] [address] [id number] [place] [address]- 0737 Oct, [facility] [place] [facility] [address] [id number] [place] [address]- 8279 Sep, [facility] [place] [facility] [address] [facility] [id number] [place] [address]- 2546 Apr, [facility] [address] [facility] [id number], [place] [address]- 6056 Feb, [facility] [address] [facility] [id number] [place] [address]- 2546 Jan, IMMUNIZATIONS Vaccine Route Administration Date Status FLULAVAL QUAD 0.5ML (6 MO AND UP) 2018 IM Intramuscular Feb 08, 2018 Administered SOCIAL HISTORY Never Assessed REASON FOR VISIT diabetic check JHON Liz PLAN OF CARE Activity Details Follow Up 3 Months Reason:DM VITAL SIGNS Height 70 in 2018-02-08 Weight 208.3 lbs 2018-02-08 Temperature 98.2 degrees Fahrenheit 2018-02-08 Heart Rate 98 bpm 2018-02-08 Respiratory Rate 22 2018-02-08 BMI 29.88 kg/m2 2018-02-08 Blood pressure systolic 140 mmHg 2018-02-08 Blood pressure diastolic 76 mmHg 2018-02-08 MEDICATIONS Medication Instructions Dosage Frequency Start Date End Date Duration Status Metoprolol Tartrate 25 MG Orally 2 times a day 1/2 tablet 12h Active Advair Diskus 500-50 MCG/DOSE Inhalation Twice a day 1 puff 12h Dec, 90 days Active Lasix 20 MG Orally Once a day 1 tablet 24h Active Entresto 24-26 MG Orally Twice a day 1 tablet 12h Active PredniSONE 10 MG Orally Once a day 1 tablet 24h 30 day(s) Active Ibuprofen Active Tylenol Active Glimepiride 1 MG Orally Once a day on the days you are taking the prednsone 1 tablet with breakfast or the first main meal of the day Mar, 30 day(s) Not-Taking Trulicity 0.75 MG/0.5ML Subcutaneous once weekly Inject 0.5 ml Jun, 90 days Not-Taking Aspir-81 81 MG Orally Once a day 1 tablet 24h Active Spiriva HandiHaler 18 MCG Inhalation Once a day 1 capsule 24h Active PredniSONE 5 mg Orally Once a day 4 tablets daily x7days, then 3 tablets [id number] then 2 tablets daily 24h Dec, Not-Taking Tramadol HCl 50 mg Orally every 6 hrs, prn pain 1-2 tabs Jan, Active Oxygen 2Lt by inhalation route 24 hours Active Ipratropium-Albuterol 0.5-2.5 (3) mg/3ml Inhalation Four times a day 3 ml as needed for Shortness of breath 6h Active Ventolin HFA 108 (90 Base) MCG/ACT Inhalation every 4 hours 2 puffs as needed for short of breath or wheeze 4h Active RESULTS Name Result Date Reference Range A1C (IN HOUSE) 2018-02-08 A1C IN HOUSE 6.2 4.3 - 5.6 % Previous A1c 7.6 Lot [id number] Exp date 05/26 PROCEDURES Procedure Date Ordered Result Body Site GLYCATED HEMOGLOBIN TEST Feb 08, 2018 SINGLE IMMUNIZATION ADMIN Feb 08, 2018 FLULAVAL QUAD 0.5ML (6 MO AND UP) 2017Feb 08, 2018 INSTRUCTIONS MEDICATIONS ADMINISTERED No Known Medications MEDICAL [...] 2/2 Benzos OD, pneumonia MRSA, MAYRA, Hypokalemia-- [facility] 12/20/2015 Hospitalization History COPD exacerbation, Asthma-[facility] 09/21/16 Hospitalization History COPD-[facility] 12/30/2016 Hospitalization History [facility]-last around 2006 or so. Hospitalization History for COPD x2 Mar 2017 Hospitalization History Upper GI bleed at apr 2017 Hospitalization History [facility], [place]- COPD Exacerbation, diarrhea 05/23/2017 Hospitalization History COPD exacerbation-[facility] 06/13/17 Hospitalization History CHF 09/09/2017 Hospitalization History COPD-UTI--[facility] 11/2017
[2018-02-18 12:11] LABS: BAND NEUTROPHILS 0 %; LYMPHOCYTES % (MANUAL) 10 %; NEUTROPHILS % (MANUAL) 89 %
[2018-02-18 12:12] LABS: BASOPHILS % (MANUAL) 0 %; EOSINOPHILS % (MANUAL) 0 %; MONOCYTES % (MANUAL) 1 %; RBC MORPH NORMAL
[2018-02-18 12:39] LABS: BILIRUBIN,TOTAL 0.2 MG/DL (0.1-1.0); CALCIUM 9.5 MG/DL (8.5-10.1); TOTAL PROTEIN 7.4 GM/DL (6.4-8.2)
[2018-02-18] MEDS ORDERED: LORazepam INJ 2 MG/ML (ATIVAN) VIAL IVP PRN (12:45)
--- NOTE | 2018-02-18 12:49 | Diagnostic Imaging Report ---
INDICATION: Shortness of breath. TECHNIQUE: A PA chest was obtained at 1226 hours. COMPARISON: 02/17/2018. FINDINGS: There is cardiomegaly with some central vascular congestion. There are chronic appearing increased basilar markings. There is no new consolidation, pneumothorax, or pleural fluid. IMPRESSION: Cardiomegaly and central vascular congestion. Unchanged chronic appearing increased basilar markings. No pneumothorax, pleural fluid, or other new finding. Dictated by: Dictated on workstation # [id number]
[2018-02-18] MEDS ORDERED: FUROSEMIDE 40 MG/4 ML INJ (LASIX) IVP ONE (13:00)
[2018-02-18] MEDS ORDERED: RT-ALBUTEROL/IPRATROPIUM 3 ML (DUONEB) VIAL INH ONE (13:00)
[2018-02-18] MEDS ORDERED: IOHEXOL 350 MG/ML 150 ML (OMNIPAQUE 350) VIAL IV ONE (13:15)
[2018-02-18] MEDS ORDERED: RECEIVED CONTRAST (Hold Metformin) IV SCH (13:15)
[2018-02-18] MEDS ORDERED: NS 250 ML (IVPB) BAG IV ONE (13:15)
--- NOTE | 2018-02-18 13:55 | Diagnostic Imaging Report ---
PROCEDURE: CT angiography of the chest with contrast. TECHNIQUE: Multiple contiguous axial images were obtained through the chest after uneventful bolus administration of intravenous contrast. 2D reconstructed CTA MIP acquisitions were also performed. INDICATION: Shortness of breath. COMPARISON: CT chest of 11/20/2017. FINDINGS: Vasculature: No central or lobar pulmonary emboli. Assessment of the distal segmental and subsegmental pulmonary arteries is limited due to respiratory motion artifact, which is greatest in the lung bases. No CT features of pulmonary hypertension or right ventricular strain. Cardiomegaly with left ventricular hypertrophy is unchanged. Thoracic aorta is normal in caliber. No aortic dissection or pseudoaneurysm. Heart and mediastinum: Visualized thyroid is normal. No supraclavicular, axillary, or intra-thoracic lymphadenopathy. The heart is normal in size without pericardial effusion. Pleura: No pleural effusion or pneumothorax. Lungs and airway: No endoluminal lesion in the trachea or central bronchi. Umjj-it-sodxcckb centrilobular emphysema is present in the upper lobes. A small amount of subsegmental atelectasis is present within the lingula. No pulmonary mass or consolidation. Upper abdomen: Unchanged diffuse hypoattenuation of the liver, indicative of hepatic steatosis. Musculoskeletal: No concerning osseous lesion. Old healed posterior right rib fracture. IMPRESSION: 1. No acute cardiopulmonary process. Specifically, no pulmonary emboli or acute aortic syndrome. 2. Unchanged cardiomegaly and emphysema. 3. Diffuse hepatic steatosis. Dictated by: Dictated on workstation # [id number]
[2018-02-18] MEDS ORDERED: PRD20T PO (14:00)
[2018-02-18] MEDS ORDERED: AZIT250T12 PO (14:00)
[2018-02-18 14:18] VITALS: BP 165/101
== END 2018-02-18 14:18 | disposition home or self-care (01) ==
LOC: EDUNIT# 11:17 → ER 11:18
DX: J44.9 Chronic obstructive pulmonary disease, unspecified (principal); R06.4 Hyperventilation; G47.30 Sleep apnea, unspecified; I42.9 Cardiomyopathy, unspecified; I25.10 Atherosclerotic heart disease of native coronary artery without angina pectoris; E78.00 Pure hypercholesterolemia, unspecified; I10 Essential (primary) hypertension; E11.9 Type 2 diabetes mellitus without complications; F41.9 Anxiety disorder, unspecified; F31.9 Bipolar disorder, unspecified; G43.909 Migraine, unspecified, not intractable, without status migrainosus; D64.9 Anemia, unspecified; K21.9 Gastro-esophageal reflux disease without esophagitis; F15.10 Other stimulant abuse, uncomplicated; F12.10 Cannabis abuse, uncomplicated; Z87.19 Personal history of other diseases of the digestive system; Z77.22 Contact with and (suspected) exposure to environmental tobacco smoke (acute) (chronic); Z82.49 Family history of ischemic heart disease and other diseases of the circulatory system; Z95.9 Presence of cardiac and vascular implant and graft, unspecified; Z80.1 Family history of malignant neoplasm of trachea, bronchus and lung; Z91.5 Personal history of self-harm; Z87.01 Personal history of pneumonia (recurrent); Z88.8 Allergy status to other drugs, medicaments and biological substances; Z79.51 Long term (current) use of inhaled steroids; Z79.82 Long term (current) use of aspirin; Z79.4 Long term (current) use of insulin
CPT/HCPCS: 36415; 71045; 71275; 80053; 80306; 82805; 83880; 85007; 85027; 93005; 94640; 94644; 96374; 96375; 96376

== ENCOUNTER 2018-04-02 13:02 | Emergency (ER) | payer SELFPAY, OTHER | END 2018-04-02 15:00 | disposition home or self-care (01) | LOC: ER 13:02 ==

== ENCOUNTER 2018-05-26 11:29 | Emergency (ER) | payer SELFPAY ==
[~2018-05-26] VITALS: Ht 175.3 cm; Wt 90.7 kg
[~2018-05-26 11:29] MED LIST changes: -LEVA1.2516 INH; +LEVA1.2543 INH; -VANC125C4 PO; +VANC125C5 PO
[2018-05-26 12:10] LABS: BASOPHILS % (AUTO) 0 % (0-10); EOSINOPHILS # (AUTO) 0.3 10^3/uL (0.0-0.3); EOSINOPHILS % (AUTO) 2 % (0-10); HEMATOCRIT 41 % (35-52); HEMOGLOBIN 13.5 G/DL (11.5-16.0); LYMPHOCYTES # (AUTO) 2.1 X 10^3 (1.0-4.0); LYMPHOCYTES % (AUTO) 17 % (12-44); MEAN CORPUSCULAR HEMOGLOBIN 29 PG (25-34); MEAN CORPUSCULAR HGB CONC 33 G/DL (32-36); MEAN CORPUSCULAR VOLUME 86 FL (80-99); MONOCYTES # (AUTO) 0.8 X 10^3 (0.0-1.0); MONOCYTES % (AUTO) 6 % (0-12); NEUTROPHILS # (AUTO) 9.5 X 10^3 (1.8-7.8); NEUTROPHILS % (AUTO) 75 % (42-75); PLATELET COUNT 309 10^3/uL (130-400); RED CELL DISTRIBUTION WIDTH 14.6 % (10.0-14.5); WHITE BLOOD COUNT 12.7 10^3/uL (4.3-11.0)
--- NOTE | 2018-05-26 12:10 | NUR ---
TO X RAY PER W/C
[2018-05-26] MEDS ORDERED: RT-ALBUTEROL/IPRATROPIUM 3 ML (DUONEB) VIAL INH ONE (12:15)
[2018-05-26 12:23] LABS: BILIRUBIN,URINE NEGATIVE (NEGATIVE); CLARITY,URINE CLEAR; COLOR,URINE YELLOW; GLUCOSE, URINE (UA) NEGATIVE (NEGATIVE); KETONES,URINE NEGATIVE (NEGATIVE); LEUKOCYTE ESTERASE ,URINE 3+ (NEGATIVE); NITRITE,URINE POSITIVE (NEGATIVE); PH,URINE 6.5 (5-9); PROTEIN,URINE 2+ (NEGATIVE); UROBILINOGEN,URINE NORMAL (NORMAL)
--- NOTE | 2018-05-26 12:23 | ED Respiratory ---
General Chief Complaint: Respiratory Problems Stated Complaint: SOB Nursing Triage Note: AMB TO ROOM WITH HOME O2 IN PLACE C/O HAVING INCREASE IN SOA SINCE THURSDAY History of Present Illness Date Seen by Provider: May 26, 2018 Time Seen by Provider: 12:00 Initial Comments 53-year-old female presents for 3-4 day history of shortness of air, That is progressively been getting worse. She has a history of COPD with chronic exacerbations. She reports using a DuoNeb treatment at 0900 this morning , with minimal improvement. She is on prednisone 10 mg orally. She works at [email or web address] and has been exposed to influenza on multiple occasions. She did get an influenza vaccine this year. She can use to smoke approximately half a pack to pack of cigarettes daily. She reports mild cough with occasional phlegm no change in color. Timing/Duration: getting worse, intermittent Severity: mild Prior Episodes/Possible Cause: chronic episodes Modifying Factors: Improves With Rest Associated Symptoms: cough, shortness of breath, wheezing Allergies and Home Medications Allergies Coded Allergies: buspirone (Verified Allergy, Mild, 05/02/17) Made"legs Shaky" amitriptyline (Verified Allergy, Unknown, 05/02/17) " MAKES ME DO WEIRD THINGS LIKE WALK IN MY SLEEP AND HAVE HALLUCINATIONS." Home Medications Albuterol Sulfate 1 Puff Puff, 2 PUFF IH Q4H PRN for SHORTNESS OF BREATH, ( Reported) Aspirin 81 Mg Tablet.dr, 81 MG PO DAILY, (Reported) Azithromycin 250 Mg Tablet, 250 MG PO UD TAKE 2 TABLETS ON DAY ONE THEN TAKE 1 TABLET DAILY FOR FOUR MORE DAYS Prescribed by: ELLEN ACE on 02/18/18 1400 Fluticasone/Salmeterol 1 Each Blst.w.dev, 1 PUFF IH BID, (Reported) Furosemide 20 Mg Tablet, 20 MG PO DAILY, (Reported) Glimepiride 1 Mg Tablet, 1 MG PO DAILY PRN for WHEN TAKING PREDNISONE, (Reported ) Hydrocodone/Acetaminophen 1 Each Tablet, 1 EACH PO Q6H PRN for PAIN-MODERATE Prescribed by: ELLEN ACE on 01/19/18 1450 Ipratropium/Albuterol Sulfate 3 Ml Ampul.neb, 3 ML IH QID PRN for SHORTNESS OF BREATH, (Reported) Metoprolol Tartrate 25 Mg Tablet, 12.5 MG PO BID, (Reported) TAKES 1/2 (25MG) TABLET Ondansetron 4 Mg Tab.rapdis, 4 MG PO Q6H PRN for NAUSEA/VOMITING Prescribed by: ABIGAIL PASCUAL on 12/06/17 1434 Prednisone 20 Mg Tab, 40 MG PO DAILY Prescribed by: ELLEN ACE on 02/18/18 1400 Prednisone 20 Mg Tab, 40 MG PO DAILY Prescribed by: ABIGAIL PASCUAL on 04/02/18 1436 Prednisone 20 Mg Tab, 20 MG PO DAILY Prescribed by: YINA MARTIN on 05/26/18 1417 Sacubitril/Valsartan 1 Each Tablet, 1 TAB PO BID, (Reported) Sulfamethoxazole/Trimethoprim 1 Each Tablet, 1 EACH PO BID Prescribed by: YINA MARTIN on 05/26/18 1412 Tiotropium [place] 1 Inh Aerp, 1 CAP IH DAILY, (Reported) Patient Home Medication List Home Medication List Reviewed: Yes Review of Systems Review of Systems Constitutional: no symptoms reported, see HPI Respiratory: see HPI, cough, dyspnea on exertion, phlegm, short of breath, wheezing All Other Systems Reviewed Negative Unless Noted: Yes Past Lpaywiu-Ovbges-Drndla Hx Past Med/Social Hx: Reviewed Nursing Past Med/Soc Hx Patient Social History Alcohol Use: Denies Use Recreational Drug Use: Yes (4 YRS AGO) Drug of Choice: + IV METH, ALSO SMOKES IT; MULTIPLE BENZODIAZEPINE OD'S Smoking Status: Current Everyday Smoker Type Used: Cigarettes 2nd Hand Smoke Exposure: Yes Recent Foreign Travel: No Contact w/Someone Who Travel: No Recent Infectious Disease Expo: No Recent Hopitalizations: Yes Immunizations Up To Date Tetanus Booster (TDap): Unknown Date of Pneumonia Vaccine: Dec 08, 2011 Date of Influenza Vaccine: Dec 31, 2017 Seasonal Allergies Seasonal Allergies: No Past Medical History Surgeries: Yes (EGD/COLONOSCOPY; CARDIAC CATH 09/18/17--NO INTERVENTION) Cardiac Respiratory: Yes (O2 AT 2-3L/NC) Pneumonia, Chronic Bronchitis, Sleep Apnea, COPD Currently Using CPAP: No Currently Using BIPAP: Yes Cardiac: Yes Cardiomyopathy, Coronary Artery Disease, High Cholesterol, Hypertension Neurological: Yes Headaches /Migraines 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 Disorders: No 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 Disorders: Denies 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 Sexually Transmitted Disease: No HIV/AIDS: No Genitourinary: No Gastrointestinal: Yes (GASTRITIS AND ESOPHAGEAL CANDIDIASIS 04/2017) Gastroesophageal Reflux, Gastrointestinal Bleed, Chronic Constipation, Chronic Diarrhea, Esophagitis, Ulcer Musculoskeletal: Yes (chronic shoulder and neck pain) Endocrine: Yes (DM- only while on steriods per pt) Diabetes, Non-Insulin dep HEENT: No Cancer: No Psychosocial: Yes (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) Sleep Difficulties, Anxiety, Suicide Attempts, Bipolar, Depression Integumentary: No Blood Disorders: Yes (ANEMIA) Adverse Reaction/Blood Tranf: No Family Medical History Cancer 03 MOTHER, Onset:66 (LUNG ) 09 BROTHER (LUNG ) Congestive heart failure 03 FATHER Heart Disease, Cancer Physical Exam Vital Signs - First Documented Capillary Refill : Less Than 3 Seconds Height: 5'9.00" Weight: 200lbs. 0oz. 90.885136yq; 34.5 BMI Method:Stated General Appearance: WD/WN, mild distress (short of air) HEENT: PERRL/EOMI, normal ENT inspection, TMs normal, pharynx normal, other ( oromucosa pink and dry, patient mouth breather) Neck: non-tender, full range of motion, supple, normal inspection Respiratory: chest non-tender, lungs clear, no respiratory distress, decreased breath sounds Cardiovascular: normal peripheral pulses, regular rate, rhythm Gastrointestinal: normal bowel sounds, soft; No distended, No guarding, No rebound; tenderness (suprapubic), other (negative CVAT bilaterally) Extremities: normal range of motion Neurologic/Psychiatric: no motor/sensory deficits, alert, normal mood/affect Progress/Results/Core Measures Suspected Sepsis Recent Fever Within 48 Hours: No Infection Criteria Present: None New/Unexplained Altered Menta: No Sepsis Screen: No Definite Risk SIRS Temperature:98.5 Pulse: 94 Respiratory Rate: 18 Laboratory Tests 05/26/18 11:50: White Blood Count 12.7H Blood Pressure 163 /108 Mean: 126 Laboratory Tests 05/26/18 11:50: Creatinine 0.83, Platelet Count 309, Total Bilirubin 0.4 Results/Orders Lab Results Laboratory Tests Test 05/26/18 11:50 05/26/18 12:17 Range/Units White Blood Count 12.7 H 4.3-11.0 10^3/uL Red Blood Count 4.71 4.35-5.85 10^6/uL Hemoglobin 13.5 11.5-16.0 G/DL Hematocrit 41 35-52 % Mean Corpuscular Volume 86 80-99 FL Mean Corpuscular Hemoglobin 29 25-34 PG Mean Corpuscular Hemoglobin Concent 33 32-36 G/DL Red Cell Distribution Width 14.6 H 10.0-14.5 % Platelet Count 309 130-400 10^3/uL Mean Platelet Volume 10.0 7.4-10.4 FL Neutrophils (%) (Auto) 75 42-75 % Lymphocytes (%) (Auto) 17 12-44 % Monocytes (%) (Auto) 6 0-12 % Eosinophils (%) (Auto) 2 0-10 % Basophils (%) (Auto) 0 0-10 % Neutrophils # (Auto) 9.5 H 1.8-7.8 X 10^3 Lymphocytes # (Auto) 2.1 1.0-4.0 X 10^3 Monocytes # (Auto) 0.8 0.0-1.0 X 10^3 Eosinophils # (Auto) 0.3 0.0-0.3 10^3/uL Basophils # (Auto) 0.0 0.0-0.1 10^3/uL Sodium Level 141 135-145 MMOL/L Potassium Level 3.8 3.6-5.0 MMOL/L Chloride Level 108 H 98-107 MMOL/L Carbon Dioxide Level 24 21-32 MMOL/L Anion Gap 9 5-14 MMOL/L Blood Urea Nitrogen 8 7-18 MG/DL Creatinine 0.83 0.60-1.30 MG/DL Estimat Glomerular Filtration Rate > 60 BUN/Creatinine Ratio 10 Glucose Level 113 H 70-105 MG/DL Calcium Level 9.3 8.5-10.1 MG/DL Corrected Calcium 9.5 8.5-10.1 MG/DL Total Bilirubin 0.4 0.1-1.0 MG/DL Aspartate Amino Transf (AST/SGOT) 13 5-34 U/L Alanine Aminotransferase (ALT/SGPT) 12 0-55 U/L Alkaline Phosphatase 68 40-136 U/L B-Type Natriuretic Peptide 191.8 H <100.0 PG/ML Total Protein 6.5 6.4-8.2 GM/DL Albumin 3.8 3.2-4.5 GM/DL Urine Color YELLOW Urine Clarity CLEAR Urine pH 6.5 5-9 Urine Specific [place]rell 1.015 L 1.016-1.022 Urine Protein 2+ H NEGATIVE Urine Glucose (UA) NEGATIVE NEGATIVE Urine Ketones NEGATIVE NEGATIVE Urine Nitrite POSITIVE H NEGATIVE Urine Bilirubin NEGATIVE NEGATIVE Urine Urobilinogen NORMAL NORMAL MG/DL Urine Leukocyte Esterase 3+ H NEGATIVE Urine RBC (Auto) 5+ H NEGATIVE Urine RBC 50-100 H /HPF Urine WBC 50-100 H /HPF Urine Squamous Epithelial Cells 10-25 H /HPF Urine Crystals NONE /LPF Urine Bacteria LARGE H /HPF Urine Casts NONE /LPF Urine Mucus NEGATIVE /LPF Urine Culture Indicated YES Micro Results Microbiology 05/26/18 Influenza Types A,B Antigen (JADEN) - Final, Complete My Orders Orders - YINA MARTIN Cbc With Automated Diff (05/26/18 12:01) Comprehensive Metabolic Panel (05/26/18 12:01) BNP (05/26/18 12:01) O2 (05/26/18 12:01) Saline Lock/Iv-Start (05/26/18 12:01) Chest Pa/Lat (2 View) (05/26/18 12:01) Influenza A And B Antigens (05/26/18 12:01) Ua Culture If Indicated (05/26/18 12:09) Albuterol/Ipra Inhalation Soln (Duoneb I (05/26/18 12:15) Svn Small Volume Nebulizer (05/26/18 12:09) Urine Culture (05/26/18 12:17) Methylprednisolone Sod Succ (Solu-Medrol (05/26/18 13:30) Medications Given in ED Current Medications Medications Dose Ordered Sig/Vladimir Route Start Time Stop Time Status Last Admin Dose Admin Albuterol/ Ipratropium 3 ml ONCE ONCE INH 05/26/18 12:15 05/26/18 12:16 DC 05/26/18 12:23 3 ML Methylprednisolone Sodium Succinate 125 mg ONCE ONCE IVP 05/26/18 13:30 05/26/18 13:31 DC 05/26/18 13:52 125 MG Vital Signs/I&O 05/26/18 05/26/18 05/26/18 05/26/18 11:29 11:29 12:24 14:20 Temp 98.5 Pulse 94 94 Resp 18 18 B/P (MAP) 163/108 (126) 164/100 (121) Pulse Ox 100 100 97 O2 Delivery Nasal Cannula Nasal Cannula Nasal Cannula Nasal Cannula O2 Flow Rate 3.00 3.00 3.00 2.00 Capillary Refill : Less Than 3 Seconds Blood Pressure Mean: 126 Progress Note : Time: 12:00 Progress Note Patient seen and evaluated, SaO2 99% on portable oxygen per nasal cannula. Will obtain labs, UA, continue oxygen at 3 L per nasal cannula, and chest x-ray. Respiratory therapy for DuoNeb treatment. 1300 labs essentially normal, WBC 12.7, BNP elevated at 191.8. We'll give Solu- Medrol 12.5 mg IV. Patient reports minimal improvement in her symptoms after the DuoNeb treatment. Awaiting chest x-ray. 1345 influenza screen negative. [address] Larios by phone, reviewed patient's assessment and diagnostic findings. Recommended discharge to home with increased prednisone and DuoNeb treatments. All up at [facility] tomorrow. Discharge instructions reviewed with the patient, she requested work note but left before it was provided to her. Patient seen by this provider smoking cigarettes immediately upon walking out of the emergency department doors. Diagnostic Imaging Diagonstic Imaging: Xray Plain Films/CT/US/NM/MRI: chest Comments NAME: SCOUT BURGESS [facility] REC#: [id number] PHYSICIAN: YINA MARTIN CC: YINA MARTIN; SERGIO NAVARRO MD Page 1 of 1 RADIOLOGY REPORT [facility]. [place], [place] CC: YINA MARTIN; SERGIO NAVARRO MD Page 1 of 1 RADIOLOGY REPORT NAME: SCOUT BURGESS [facility] REC#: [id number] PT STATUS: REG ER : 1965 PHYSICIAN: YINA MARTIN ADMIT DATE: 05/26/18/ER Signed Date of Exam: 05/26/18 CHEST PA/LAT (2 VIEW) INDICATION: Shortness of breath with increased oxygen requirement. PA and lateral chest obtained at 12:39 p.m. is compared to 04/02/2018. FINDINGS: Heart is borderline in size. Mediastinal silhouette is unremarkable. The lungs show no focal infiltrate. There is some unchanged parenchymal scarring along the left heart border. There is no new infiltrate or pleural fluid. IMPRESSION: Borderline heart size with no new infiltrate or pneumothorax or pleural fluid. Small area of scarring along left heart border appears stable compared to the prior study. Dictated by: Dictated on workstation # [id number] Dict: 05/26/18 1252 Trans: 05/26/18 1303 Interpreted by: SERGIO NAVARRO MD Electronically signed by: SERGIO NAVARRO MD 05/26/18 1308 Reviewed: Reviewed by Me Departure Impression Primary Impression: COPD (chronic obstructive pulmonary disease) Qualified Codes: J44.1 - Chronic obstructive pulmonary disease with (acute) exacerbation Additional Impression: UTI (urinary tract infection) Qualified Codes: N30.01 - Acute cystitis with hematuria Disposition: HOME, SELF-CARE Condition: Stable Departure-Patient Inst. Decision time for Depature: 13:55 Referrals: [facility] (PCP) Primary Care Physician ALONDRA CARTER (Family) Primary Care Physician Patient Instructions: Exacerbation of COPD (DC), Urinary Tract Infection, Adult (DC) Add. Discharge Instructions: You have an appointment with Alondra Carter APRN at [facility] on May 27 at 3:40 Increase your Prednisone as prescribed on new prescription (stop taking your prednisone 10 mg while taking this), resume after finishing new prescription. Take antibiotic for urinary tract infection as prescribed. Increase water intake, 8-16 ounces every 2 hours while awake. Empty bladder frequently. You may take Tylenol 650 mg every 4-6 hours as needed for pain or fever. Continue to take your home medications, if symptoms are not improving after using her DuoNeb, repeat a second treatment. Return to emergency department if symptoms worsen or new acute problems. All discharge instructions reviewed with patient and/or family. Voiced understanding. Scripts Prednisone (Prednisone) 20 Mg Tab 20 MG PO DAILY, #18 TAB Prov: YINA MARTIN 05/26/18 Sulfamethoxazole/Trimethoprim (Bactrim Ds Tablet) 1 Each Tablet 1 EACH PO BID, #10 TAB 0 Refills Prov: YINA MARTIN 05/26/18 Work/School Note: Work Release Form Date Seen in the Emergency Department: May 26, 2018 Return to Work: May 28, 2018 Restrictions: No Restrictions Copy Copies To 1: TIMOTHY LARIOS MD, AMY ARNP May 26, 2018 12:23
[2018-05-26 12:24] LABS: ALANINE AMINOTRANSFERASE 12 U/L (0-55); ALBUMIN 3.8 GM/DL (3.2-4.5); ALKALINE PHOSPHATASE 68 U/L (40-136); BILIRUBIN,TOTAL 0.4 MG/DL (0.1-1.0); BUN/CREATININE RATIO 10; CALCIUM 9.3 MG/DL (8.5-10.1); CARBON DIOXIDE 24 MMOL/L (21-32); CHLORIDE 108 MMOL/L (98-107); CREATININE SERUM 0.83 MG/DL (0.60-1.30); GFR ESTIMATED > 60; GLUCOSE 113 MG/DL (70-105); POTASSIUM 3.8 MMOL/L (3.6-5.0); SODIUM 141 MMOL/L (135-145); TOTAL PROTEIN 6.5 GM/DL (6.4-8.2)
[2018-05-26 12:34] LABS: BACTERIA,URINE LARGE /HPF; RBC,URINE 50-100 /HPF; WBC,URINE 50-100 /HPF
--- NOTE | 2018-05-26 12:59 | Diagnostic Imaging Report ---
INDICATION: Shortness of breath with increased oxygen requirement. PA and lateral chest obtained at 12:39 p.m. is compared to 04/02/2018. FINDINGS: Heart is borderline in size. Mediastinal silhouette is unremarkable. The lungs show no focal infiltrate. There is some unchanged parenchymal scarring along the left heart border. There is no new infiltrate or pleural fluid. IMPRESSION: Borderline heart size with no new infiltrate or pneumothorax or pleural fluid. Small area of scarring along left heart border appears stable compared to the prior study. Dictated by: Dictated on workstation # [id number]
[2018-05-26] MEDS ORDERED: methylPREDNISolone 125 MG (Solu-MEDROL) VIAL IVP ONE (13:30)
[2018-05-26] MEDS ORDERED: SULF1TAB35 PO (14:12)
[2018-05-26] MEDS ORDERED: PRD20T PO (14:17)
[2018-05-26 14:20] VITALS: BP 164/100
--- NOTE | 2018-05-26 14:20 | NUR ---
NOTE OBTAINED FOR PATIENT ON DISCHARGE WENT BACK TO ROOM AND WAITNG ROOM PATIENT GONE. NOTE PLACED ON CHART.
== END 2018-05-26 14:20 | disposition home or self-care (01) ==
LOC: EDUNIT# 11:29 → ER 11:30
DX: J44.1 Chronic obstructive pulmonary disease with (acute) exacerbation (principal); N39.0 Urinary tract infection, site not specified; G47.30 Sleep apnea, unspecified; I25.10 Atherosclerotic heart disease of native coronary artery without angina pectoris; I42.9 Cardiomyopathy, unspecified; E78.00 Pure hypercholesterolemia, unspecified; I10 Essential (primary) hypertension; K21.9 Gastro-esophageal reflux disease without esophagitis; E11.9 Type 2 diabetes mellitus without complications; F41.9 Anxiety disorder, unspecified; F31.9 Bipolar disorder, unspecified; G43.909 Migraine, unspecified, not intractable, without status migrainosus; F17.210 Nicotine dependence, cigarettes, uncomplicated; Z88.8 Allergy status to other drugs, medicaments and biological substances; Z87.19 Personal history of other diseases of the digestive system; Z91.5 Personal history of self-harm; Z80.1 Family history of malignant neoplasm of trachea, bronchus and lung; Z82.49 Family history of ischemic heart disease and other diseases of the circulatory system; Z79.51 Long term (current) use of inhaled steroids; Z98.890 Other specified postprocedural states; Z95.9 Presence of cardiac and vascular implant and graft, unspecified; Z87.01 Personal history of pneumonia (recurrent); Z79.82 Long term (current) use of aspirin; Z79.52 Long term (current) use of systemic steroids; Z79.4 Long term (current) use of insulin
CPT/HCPCS: 36415; 71046; 80053; 81000; 83880; 85025; 87077; 87088; 87186; 87804; 94640; 96374

== ENCOUNTER 2018-05-28 18:09 | Inpatient (IN) | payer SELFPAY ==
[~2018-05-28] VITALS: Ht 177.8 cm; Wt 94.9 kg
[~2018-05-28 18:09] MED LIST changes: +SULF1TAB35 PO
[2018-05-28] MEDS ORDERED: methylPREDNISolone 125 MG (Solu-MEDROL) VIAL IV STA (19:09)
[2018-05-28] MEDS ORDERED: RT-ALBUTEROL SULF 2.5 MG/3 ML PRE-MIX VIAL INH STA (19:13)
[2018-05-28] MEDS ORDERED: RT-ALBUTEROL/IPRATROPIUM 3 ML (DUONEB) VIAL INH ONE (19:15)
[2018-05-28] MEDS ORDERED: DEXAMETHASONE 4 MG/ML SDV (DECADRON) IH ONE (19:15)
[2018-05-28 19:22] LABS: BASOPHILS % (AUTO) 0 % (0-10); EOSINOPHILS # (AUTO) 0.3 10^3/uL (0.0-0.3); EOSINOPHILS % (AUTO) 3 % (0-10); HEMATOCRIT 42 % (35-52); HEMOGLOBIN 14.2 G/DL (11.5-16.0); LYMPHOCYTES # (AUTO) 3.2 X 10^3 (1.0-4.0); LYMPHOCYTES % (AUTO) 31 % (12-44); MEAN CORPUSCULAR HEMOGLOBIN 29 PG (25-34); MEAN CORPUSCULAR HGB CONC 34 G/DL (32-36); MEAN CORPUSCULAR VOLUME 85 FL (80-99); MEAN PLATELET VOLUME 9.6 FL (7.4-10.4); MONOCYTES # (AUTO) 0.8 X 10^3 (0.0-1.0); MONOCYTES % (AUTO) 8 % (0-12); NEUTROPHILS % (AUTO) 58 % (42-75); PLATELET COUNT 333 10^3/uL (130-400); RED CELL DISTRIBUTION WIDTH 14.6 % (10.0-14.5); WHITE BLOOD COUNT 10.4 10^3/uL (4.3-11.0)
[2018-05-28 19:33] LABS: INR 0.9 (0.8-1.4); PROTHROMBIN TIME PATIENT 11.8 SEC (12.2-14.7)
[2018-05-28 19:44] LABS: ALANINE AMINOTRANSFERASE 13 U/L (0-55); ALBUMIN 4.2 GM/DL (3.2-4.5); ALKALINE PHOSPHATASE 70 U/L (40-136); BILIRUBIN,TOTAL 0.3 MG/DL (0.1-1.0); BUN/CREATININE RATIO 10; CALCIUM 9.6 MG/DL (8.5-10.1); CARBON DIOXIDE 22 MMOL/L (21-32); CHLORIDE 107 MMOL/L (98-107); CREATININE SERUM 0.99 MG/DL (0.60-1.30); GFR ESTIMATED 58; GLUCOSE 84 MG/DL (70-105); MAGNESIUM 1.8 MG/DL (1.8-2.4); POTASSIUM 3.8 MMOL/L (3.6-5.0); SODIUM 141 MMOL/L (135-145); TOTAL PROTEIN 7.1 GM/DL (6.4-8.2)
[2018-05-28 19:52] LABS: ABG BASE EXCESS -1.1 MMOL/L (-2.5-2.5); ABG OXYGEN SATURATION 99 % (94-100); ABG PCO2 32 MMHG (35-45); ABG PH 7.46 (7.37-7.43); ABG PO2 103 MMHG (79-93); ABG TCO2 23.3 MMOL/L (21.0-31.0)
[2018-05-28 19:53] LABS: ALLENS TEST POSITIVE
[2018-05-28 19:54] LABS: INSPIRED O2 3L; PATIENT TEMP 97.9; VENTILATOR NO
--- NOTE | 2018-05-28 19:57 | Diagnostic Imaging Report ---
INDICATION: Shortness of breath. COMPARISON: 05/26/2018. FINDINGS: The heart remains mildly enlarged and unchanged. There is no evidence of pulmonary edema. The lungs are well aerated and free of infiltrate. Mild increased density is again noted along the left cardiac border which appears stable. IMPRESSION: Cardiomegaly with left basilar scarring. No acute changes noted when compared with previous exam. Dictated by: Dictated on workstation # [id number]
[2018-05-28] MEDS ORDERED: LORazepam INJ 2 MG/ML (ATIVAN) VIAL IVP ONE (20:45)
[2018-05-28] MEDS ORDERED: cefTRIAXone FOR IV USE 1,000 MG in WATER (STERILE) FOR INJECTION 10 ML IV ONE (20:45)
[2018-05-28 21:07] LABS: BILIRUBIN,URINE NEGATIVE (NEGATIVE); CLARITY,URINE CLEAR; COLOR,URINE YELLOW; GLUCOSE, URINE (UA) NEGATIVE (NEGATIVE); KETONES,URINE NEGATIVE (NEGATIVE); LEUKOCYTE ESTERASE ,URINE 1+ (NEGATIVE); NITRITE,URINE NEGATIVE (NEGATIVE); PH,URINE 6 (5-9); PROTEIN,URINE NEGATIVE (NEGATIVE); UROBILINOGEN,URINE NORMAL (NORMAL)
[2018-05-28 21:17] LABS: BACTERIA,URINE TRACE /HPF
[2018-05-28 21:28] LABS: AMPHETAMINE SCREEN, URINE NEGATIVE (NEGATIVE); BARBITURATE SCREEN URINE NEGATIVE (NEGATIVE); BENZODIAZEPINES SCREEN URINE POSITIVE (NEGATIVE); CANNABINOID SCREEN, URINE NEGATIVE (NEGATIVE); COCAINE SCREEN URINE NEGATIVE (NEGATIVE); METHADONE STAT NEGATIVE (NEGATIVE); METHAMPHETAMINE SCREEN URINE S NEGATIVE (NEGATIVE); OPIATE SCREEN URINE NEGATIVE (NEGATIVE); OXYCODONE STAT NEGATIVE (NEGATIVE); PROPOXYPHENE STAT NEGATIVE (NEGATIVE); TRICYCLIC ANTIDEPRESSANTS SCRE NEGATIVE (NEGATIVE)
--- NOTE | 2018-05-28 21:49 | NUR ---
SCOUT BURGESS admitted to room 407-1, with an admitting diagnosis of COPD EXACERBATION, on 05/28/18 from ED via STRETCHER, accompanied by STAFF.SCOUT BURGESS introduced to surroundings, call light, bed controls, phone, TV, temperature control, lights, meal times, smoking policy, visitor policy, side rail policy, bathrooms and showers. Patient Rights given to patient in the handbook.SCOUT BURGESS verbalizes understanding that [facility] is not responsible for the loss or damage to any personal effects or valuables that are kept in the patients posession during their hospitalization.
[2018-05-28 22:15] VITALS: BP 117/76
[2018-05-28] MEDS ORDERED: AZITHROMYCIN 500 MG/NS 250 ML IVPB IV SCH ×2 (23:30)
[2018-05-28] MEDS ORDERED: LORazepam INJ 2 MG/ML (ATIVAN) VIAL IV PRN (23:30)
[2018-05-28] MEDS ORDERED: RT-ALBUTEROL/IPRATROPIUM 3 ML (DUONEB) VIAL INH PRN (23:30)
[2018-05-29] VITALS (9 sets, daily range): BP systolic 116–171; BP diastolic 59–87
[2018-05-29] MEDS: RT-ALBUTEROL/IPRATROPIUM 3 ML (DUONEB) VIAL INH SCH ×6 (01:14→22:08)
[2018-05-29] MEDS ORDERED: methylPREDNISolone 125 MG (Solu-MEDROL) VIAL IVP SCH (02:00)
[2018-05-29] MEDS ORDERED: oxyCODONE/APAP 5/325MG (PERCOCET 5) TABLET PO ONE (05:15)
[2018-05-29 06:18] LABS: BASOPHILS % (AUTO) 0 % (0-10); EOSINOPHILS % (AUTO) 0 % (0-10); HEMATOCRIT 38 % (35-52); HEMOGLOBIN 12.6 G/DL (11.5-16.0); LYMPHOCYTES # (AUTO) 0.4 X 10^3 (1.0-4.0); LYMPHOCYTES % (AUTO) 4 % (12-44); MEAN CORPUSCULAR HEMOGLOBIN 28 PG (25-34); MEAN CORPUSCULAR HGB CONC 33 G/DL (32-36); MEAN CORPUSCULAR VOLUME 86 FL (80-99); MEAN PLATELET VOLUME 10.4 FL (7.4-10.4); MONOCYTES % (AUTO) 0 % (0-12); NEUTROPHILS # (AUTO) 11.4 X 10^3 (1.8-7.8); NEUTROPHILS % (AUTO) 96 % (42-75); PLATELET COUNT 283 10^3/uL (130-400); RED CELL DISTRIBUTION WIDTH 14.4 % (10.0-14.5); WHITE BLOOD COUNT 11.9 10^3/uL (4.3-11.0)
[2018-05-29 06:38] LABS: ALBUMIN 3.8 GM/DL (3.2-4.5); BILIRUBIN,TOTAL 0.2 MG/DL (0.1-1.0); CALCIUM 9.2 MG/DL (8.5-10.1); POTASSIUM 4.1 MMOL/L (3.6-5.0); TOTAL PROTEIN 6.4 GM/DL (6.4-8.2)
[2018-05-29 06:52] LABS: LYMPHOCYTES % (MANUAL) 1 %; NEUTROPHILS % (MANUAL) 99 %; RBC MORPH NORMAL
--- NOTE | 2018-05-29 08:31 | History & Physicial (CHS) ---
HPI History of Present Illness: 53-year-old female admitted for shortness of breath as well as cough. She does seek her care through [facility] and does see nurse practitioner there. Today patient does report she is very anxious and she has a tendency to get this way when she receives steroids. She does not typically wear nasal cannula oxygen at home. She states her cough is productive of phlegm. She denies any cardiac palpitations. There is been no reports of nausea vomiting or diarrhea. Source: patient Exam Limitations: clinical condition Date seen by provider: May 29, 2018 Time Seen by Provider: 08:00 Attending Physician Vignesh Woods MD PCP Center/[facility] [place] Consult Date of Admission May 28, 2018 at 20:30 Home Medications Home Medications Reviewed patient Home Medication Reconciliation performed by pharmacy medication reconciliations crystal growing technician and/or nursing. Patients Allergies have been reviewed. Allergies Coded Allergies: buspirone (Verified Allergy, Mild, 05/02/17) Made"legs Shaky" amitriptyline (Verified Allergy, Unknown, 05/02/17) " MAKES ME DO WEIRD THINGS LIKE WALK IN MY SLEEP AND HAVE HALLUCINATIONS." PIW-Ltbxwz-Rhaxle Hx Patient Social History Alcohol Use: Denies Use Recreational Drug Use: No (4 YRS AGO) Drug of Choice: + IV METH, ALSO SMOKES IT; MULTIPLE BENZODIAZEPINE OD'S Smoking Status: Current Everyday Smoker Type Used: Cigarettes 2nd Hand Smoke Exposure: Yes Recent Foreign Travel: No Contact w/other who traveled: No Recent Hopitalizations: Yes Recent Infectious Disease Expo: Yes Physical Abuse Screen: No Sexual Abuse: No Immunizations Up To Date Tetanus Booster (TDap): Unknown Date of Pneumonia Vaccine: Apr 30, 2018 Date of Influenza Vaccine: Apr 30, 2018 Past Medical History Past Medical History 1. HTN 2. COPD 3. Asthma 4.Chronic Migraines- with rebound headaches secondary to overuse of tylenol and ibuprofen 5. Anxiety 6. Depression 7. Endometrial hypertrophy 8. DMII 9. HLP- with elevated triglycerides 10. Chronic Insomnia 11. Gastritis 12. Methamphetamine abuse 13. Several admissions for overdose of benzodiazapine 14. Acute systolic heart failure 2014 15. Bipolar Disorder Past Surgical History 1. EGD- Gastritis [place] 2. Colonoscopy- [place] Family Medical History Significant Family History: Heart Disease, Cancer Family History: Cancer 03 MOTHER, Onset:66 (LUNG ) 09 BROTHER (LUNG ) Congestive heart failure 03 FATHER Review of Systems (CHC) Constitutional: see HPI Reviewed Test Results Reviewed Test Results Lab Laboratory Tests Test 05/28/18 19:10 05/28/18 19:40 05/28/18 21:00 05/29/18 05:26 Range/Units White Blood Count 10.4 11.9 H 4.3-11.0 10^3/uL Red Blood Count 4.95 4.45 4.35-5.85 10^6/uL Hemoglobin 14.2 12.6 11.5-16.0 G/DL Hematocrit 42 38 35-52 % Mean Corpuscular Volume 85 86 80-99 FL Mean Corpuscular Hemoglobin 29 28 25-34 PG Mean Corpuscular Hemoglobin Concent 34 33 32-36 G/DL Red Cell Distribution Width 14.6 H 14.4 10.0-14.5 % Platelet Count 333 283 130-400 10^3/uL Mean Platelet Volume 9.6 10.4 7.4-10.4 FL Neutrophils (%) (Auto) 58 96 H 42-75 % Lymphocytes (%) (Auto) 31 4 L 12-44 % Monocytes (%) (Auto) 8 0 0-12 % Eosinophils (%) (Auto) 3 0 0-10 % Basophils (%) (Auto) 0 0 0-10 % Neutrophils # (Auto) 6.0 11.4 H 1.8-7.8 X 10^3 Lymphocytes # (Auto) 3.2 0.4 L 1.0-4.0 X 10^3 Monocytes # (Auto) 0.8 0.0 0.0-1.0 X 10^3 Eosinophils # (Auto) 0.3 0.0 0.0-0.3 10^3/uL Basophils # (Auto) 0.0 0.0 0.0-0.1 10^3/uL Prothrombin Time 11.8 L 12.2-14.7 SEC INR Comment 0.9 0.8-1.4 Activated Partial Thromboplast Time 28 24-35 SEC Sodium Level 141 135 135-145 MMOL/L Potassium Level 3.8 4.1 3.6-5.0 MMOL/L Chloride Level 107 105 98-107 MMOL/L Carbon Dioxide Level 22 18 L 21-32 MMOL/L Anion Gap 12 12 5-14 MMOL/L Blood Urea Nitrogen 10 13 7-18 MG/DL Creatinine 0.99 1.00 0.60-1.30 MG/DL Estimat Glomerular Filtration Rate 58 58 BUN/Creatinine Ratio 10 13 Glucose Level 84 279 H 70-105 MG/DL Calcium Level 9.6 9.2 8.5-10.1 MG/DL Corrected Calcium 9.4 9.4 8.5-10.1 MG/DL Magnesium Level 1.8 1.8-2.4 MG/DL Total Bilirubin 0.3 0.2 0.1-1.0 MG/DL Aspartate Amino Transf (AST/SGOT) 11 9 5-34 U/L Alanine Aminotransferase (ALT/SGPT) 13 10 0-55 U/L Alkaline Phosphatase 70 65 40-136 U/L Troponin I < 0.028 <0.028 NG/ML B-Type Natriuretic Peptide 137.7 H <100.0 PG/ML Total Protein 7.1 6.4 6.4-8.2 GM/DL Albumin 4.2 3.8 3.2-4.5 GM/DL Blood Gas Puncture Site RIGHT RADIAL Blood Gas Patient Temperature 97.9 Arterial Blood pH 7.46 H 7.37-7.43 Arterial Blood Partial Pressure CO2 32 L 35-45 MMHG Arterial Blood Partial Pressure O2 103 H 79-93 MMHG Arterial Blood HCO3 22 L 23-27 MMOL/L Arterial Blood Total CO2 23.3 21.0-31.0 MMOL/L Arterial Blood Oxygen Saturation 99 94-100 % Arterial Blood Base Excess -1.1 -2.5-2.5 MMOL/L Torsten Test POSITIVE Blood Gas Ventilator Setting NO Blood Gas Inspired Oxygen 3L Urine Color YELLOW Urine Clarity CLEAR Urine pH 6 5-9 Urine Specific [place] 1.010 L 1.016-1.022 Urine Protein NEGATIVE NEGATIVE Urine Glucose (UA) NEGATIVE NEGATIVE Urine Ketones NEGATIVE NEGATIVE Urine Nitrite NEGATIVE NEGATIVE Urine Bilirubin NEGATIVE NEGATIVE Urine Urobilinogen NORMAL NORMAL MG/DL Urine Leukocyte Esterase 1+ H NEGATIVE Urine RBC (Auto) 1+ H NEGATIVE Urine RBC NONE /HPF Urine WBC 10-25 H /HPF Urine Squamous Epithelial Cells 2-5 /HPF Urine Crystals NONE /LPF Urine Bacteria TRACE /HPF Urine Casts NONE /LPF Urine Mucus NEGATIVE /LPF Urine Culture Indicated YES Urine Opiates Screen NEGATIVE NEGATIVE Urine Oxycodone Screen NEGATIVE NEGATIVE Urine Methadone Screen NEGATIVE NEGATIVE Urine Propoxyphene Screen NEGATIVE NEGATIVE Urine Barbiturates Screen NEGATIVE NEGATIVE Ur Tricyclic Antidepressants Screen NEGATIVE NEGATIVE Urine Phencyclidine Screen NEGATIVE NEGATIVE Urine Amphetamines Screen NEGATIVE NEGATIVE Urine Methamphetamines Screen NEGATIVE NEGATIVE Urine Benzodiazepines Screen POSITIVE H NEGATIVE Urine Cocaine Screen NEGATIVE NEGATIVE Urine Cannabinoids Screen NEGATIVE NEGATIVE Neutrophils % (Manual) 99 % Lymphocytes % (Manual) 1 % Blood Morphology Comment NORMAL Radiology NAME: SCOUT [facility] REC#: [id number] PT STATUS: ADM IN : 1965 PHYSICIAN: TIMOTHY HUGHES DO ADMIT DATE: 05/28/18 Signed Date of Exam: 05/28/18 CHEST 1 VIEW, AP/PA ONLY INDICATION: Shortness of breath. COMPARISON: 05/26/2018. FINDINGS: The heart remains mildly enlarged and unchanged. There is no evidence of pulmonary edema. The lungs are well aerated and free of infiltrate. Mild increased density is again noted along the left cardiac border which appears stable. IMPRESSION: Cardiomegaly with left basilar scarring. No acute changes noted when compared with previous exam. Dictated by: Dictated on workstation # [id number] Dict: 05/28/181951 Trans: 05/28/182122 Interpreted by: AKASH CORNEJO MD Electronically signed by: AKASH CORNEJO MD 05/28/182122 Physical Exam-(CHC) Physical Exam Vital Signs VS - Last 72 Hours, by Label 05/28/18 05/28/18 05/28/18 05/28/18 19:03 19:35 19:35 21:27 Temp 97.2 98.1 Pulse 92 82 97 Resp 24 20 B/P (MAP) 130/108 (115) 108/73 (85) Pulse Ox 99 98 98 97 O2 Delivery Nasal Cannula Nasal Cannula Nasal Cannula O2 Flow Rate 3.00 3.00 3.00 FiO2 32 05/28/18 05/28/18 05/28/18 05/29/18 22:09 22:15 22:39 00:37 Temp 97.9 98.2 Pulse 108 103 107 Resp B/P (MAP) 117/76 131/70 (90) Pulse Ox 97 98 96 O2 Delivery Nasal Cannula Nasal Cannula Nasal Cannula O2 Flow Rate 3.00 3.00 3.00 05/29/18 05/29/18 05/29/18 05/29/18 01:00 01:14 02:42 04:47 Temp 97.9 96.8 Pulse 99 101 98 Resp 24 20 B/P (MAP) 128/85 (99) 160/75 (103) Pulse Ox 96 95 100 O2 Delivery Nasal Cannula Nasal Cannula Nasal Cannula O2 Flow Rate 3.00 3.00 3.00 05/29/18 07:00 Pulse 96 Capillary Refill : Less Than 3 Seconds General Appearance: mild distress (As she appears anxious) Eyes: Bilateral Eye Normal Inspection HEENT: other (Tympanic membrane on the right appears without erythema) Neck: non-tender, full range of motion Respiratory: wheezing (Throughout chest) Cardiovascular: regular rate, rhythm Gastrointestinal: normal bowel sounds, soft Rectal: deferred Extremities: normal inspection Neurologic/Psychiatric: wool supplier II-XII nml as tested, alert, oriented x 3 Skin: normal color Assessment/Plan Assessment/Plan Admission Dx 1. COPD exacerbation 2. Bronchitis without evidence for pneumonia by chest x-ray Admission Status: Inpatient Order (span 2 midnights) Reason for Inpatient Admission: Receive IV Solu-Medrol for COPD exacerbation and IV Zithromax and Rocephin for bronchial coverage Assessment & Plan 1. COPD exacerbation -Patient has been initiated on IV Solu-Medrol -Albuterol treatments per respiratory therapy 2. Bronchitis without evidence for pneumonia by chest x-ray -Patient currently taking Zithromax 500 mg IV daily as well as Rocephin 1 g IV daily -Sputum culture Clinical Quality Measures DVT/VTE Risk/Contraindication: Risk Factor Score Per Nursin RFS Level Per Nursing on Admit: 3=High VIGNESH WOODS MD May 29, 2018 08:31
[2018-05-29] MEDS: ALPRAZolam 0.5 MG (XANAX) TAB PO PRN ×3 (08:37→20:24)
[2018-05-29] MEDS: oxyCODONE/APAP 10/325MG (PERCOCET 10) TABLET PO PRN ×2 (10:28→17:24)
[2018-05-29] MEDS ORDERED: KETOROLAC 30 MG/ML VIAL IVP NR (13:30)
[2018-05-29] MEDS: methylPREDNISolone 125 MG (Solu-MEDROL) VIAL IVP SCH ×2 (13:39→20:16)
[2018-05-29] MEDS: cefTRIAXone 1,000 MG/SWFI 10 ML IV PUSH IV SCH ×2 (20:16)
[2018-05-29] MEDS: AZITHROMYCIN 250 MG TAB (ZITHROMAX) PO SCH (20:16)
[2018-05-30] VITALS (7 sets, daily range): BP systolic 124–181; BP diastolic 65–93
[2018-05-30] MEDS: oxyCODONE/APAP 10/325MG (PERCOCET 10) TABLET PO PRN ×4 (00:15→20:29)
[2018-05-30] MEDS: RT-ALBUTEROL/IPRATROPIUM 3 ML (DUONEB) VIAL INH SCH ×6 (01:53→21:28)
--- NOTE | 2018-05-30 06:28 | ED Respiratory ---
General Chief Complaint: Respiratory Problems Stated Complaint: COPD EXACERBATION Nursing Triage Note: SOA Source: patient, old records History of Present Illness Date Seen by Provider: May 28, 2018 Time Seen by Provider: 19:05 Initial Comments PT ARRIVES VIA POV FROM HOME PT WITH LONGSTANDING COPD --IS O2 DEPENDENT AT 2-3 L/NC STATES SHE HAS HAD INCREASED SHORTNESS OF BREATH ALL WEEK AND HAS BEEN TURNING HER O2 UP TO 6L/NC WITHOUT RELIEF. PT ALSO USES BIPAP AT HS PT IS ALSO STEROID DEPENDENT--HAD WEANED DOWN TO 10 MG/DAY BUT PT TOOK 60 MG TODAY WITHOUT RELIEF. HAS HAD COUGH WITH COLORED SPUTUM NO CHEST PAIN NO SWELLING IN LEGS/ FEET OR PAIN IN CALVES NO KNOWN FEVER STATES LAST DUO NEB TREATMENT WAS AT 1730 PT SEEN HERE 05/26/18 FOR SAME PT SEEN BY POULTRY VACCINATOR AT [facility] YESTERDAY FOR SAME PT WAS ALSO DX WITH UTI AND PLACED ON BACTRIM. 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 THOMAS--HAS NOT SEEN HIM IN OVER A MONTH--HAS NOT ATTEMPTED TO CONTACT HIM FOR THIS PROBLEM Allergies and Home Medications Allergies Coded Allergies: buspirone (Verified Allergy, Mild, 05/02/17) Made"legs Shaky" amitriptyline (Verified Allergy, Unknown, 05/02/17) " MAKES ME DO WEIRD THINGS LIKE WALK IN MY SLEEP AND HAVE HALLUCINATIONS." Home Medications Albuterol Sulfate 1 Puff Puff, 2 PUFF IH Q4H PRN for SHORTNESS OF BREATH, ( Reported) Aspirin 81 Mg Tablet.dr, 81 MG PO DAILY, (Reported) Azithromycin 250 Mg Tablet, 250 MG PO UD TAKE 2 TABLETS ON DAY ONE THEN TAKE 1 TABLET DAILY FOR FOUR MORE DAYS Prescribed by: ELLEN ACE on 02/18/18 1400 Fluticasone/Salmeterol 1 Each Blst.w.dev, 1 PUFF IH BID, (Reported) Furosemide 20 Mg Tablet, 20 MG PO DAILY, (Reported) Glimepiride 1 Mg Tablet, 1 MG PO DAILY PRN for WHEN TAKING PREDNISONE, (Reported ) Hydrocodone/Acetaminophen 1 Each Tablet, 1 EACH PO Q6H PRN for PAIN-MODERATE Prescribed by: ELLEN ACE on 01/19/18 1450 Ipratropium/Albuterol Sulfate 3 Ml Ampul.neb, 3 ML IH QID PRN for SHORTNESS OF BREATH, (Reported) Metoprolol Tartrate 25 Mg Tablet, 12.5 MG PO BID, (Reported) TAKES 1/2 (25MG) TABLET Ondansetron 4 Mg Tab.rapdis, 4 MG PO Q6H PRN for NAUSEA/VOMITING Prescribed by: ABIGAIL PASCUAL on 12/06/17 1434 Prednisone 20 Mg Tab, 40 MG PO DAILY Prescribed by: ELLEN ACE on 02/18/18 1400 Prednisone 20 Mg Tab, 40 MG PO DAILY Prescribed by: ABIGAIL PASCUAL on 04/02/18 1436 Prednisone 20 Mg Tab, 20 MG PO DAILY Prescribed by: YINA MARTIN on 05/26/18 1417 Sacubitril/Valsartan 1 Each Tablet, 1 TAB PO BID, (Reported) Sulfamethoxazole/Trimethoprim 1 Each Tablet, 1 EACH PO BID Prescribed by: YINA MARTIN on 05/26/18 1412 Tiotropium Olds 1 Inh Aerp, 1 CAP IH DAILY, (Reported) Patient Home Medication List Home Medication List Reviewed: Yes Review of Systems Review of Systems Constitutional: No fever EENTM: nose congestion Respiratory: see HPI, cough, dyspnea on exertion, phlegm, short of breath, wheezing Cardiovascular: no symptoms reported; No chest pain, No edema, No palpitations , No syncope Gastrointestinal: no symptoms reported Genitourinary: no symptoms reported Musculoskeletal: no symptoms reported Skin: no symptoms reported Psychiatric/Neurological: Anxiety Hematologic/Lymphatic: No Symptoms Reported Immunological/Allergic: no symptoms reported Past Yqnrmdy-Zsqjho-Xmsbar Hx Patient Social History Alcohol Use: Denies Use Recreational Drug Use: Yes (+ IV METH, ALSO SMOKES IT; MULTIPLE BENZODIAZEPINE OD'S ) Drug of Choice: + IV METH, ALSO SMOKES IT; MULTIPLE BENZODIAZEPINE OD'S Smoking Status: Current Everyday Smoker (3-4 PPD) Type Used: Cigarettes 2nd Hand Smoke Exposure: Yes Recent Foreign Travel: No Contact w/Someone Who Travel: No Recent Infectious Disease Expo: Yes Recent Hopitalizations: Yes Immunizations Up To Date Tetanus Booster (TDap): Unknown Date of Pneumonia Vaccine: Apr 30, 2018 Date of Influenza Vaccine: Apr 30, 2018 Seasonal Allergies Seasonal Allergies: No Past Medical History Surgeries: Yes (EGD/COLONOSCOPY; CARDIAC CATH 09/18/17--NO INTERVENTION) Cardiac Respiratory: Yes (O2 AT 2-3L/NC) Pneumonia, Chronic Bronchitis, Sleep Apnea, COPD Currently Using CPAP: No Currently Using BIPAP: Yes Cardiac: Yes Cardiomyopathy, Coronary Artery Disease, High Cholesterol, Hypertension Neurological: Yes Headaches /Migraines : No 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 Disorders: No 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 Disorders: Denies PT ESCORT History: Menopausal Sexually Transmitted Disease: No HIV/AIDS: No Genitourinary: No Gastrointestinal: Yes (GASTRITIS AND ESOPHAGEAL CANDIDIASIS 04/2017) Gastroesophageal Reflux, Gastrointestinal Bleed, Chronic Constipation, Chronic Diarrhea, Esophagitis, Ulcer Musculoskeletal: Yes (chronic shoulder and neck pain) Endocrine: Yes (DM- only while on steriods per pt) Diabetes, Non-Insulin dep HEENT: No Cancer: No Psychosocial: Yes (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; POLYSUBSTANCE ABUSE) Sleep Difficulties, Anxiety, Suicide Attempts, Bipolar, Depression Integumentary: No Blood Disorders: Yes (ANEMIA) Adverse Reaction/Blood Tranf: No Family Medical History Cancer 03 MOTHER, Onset:66 (LUNG ) 09 BROTHER (LUNG ) Congestive heart failure 03 FATHER Heart Disease, Cancer Physical Exam Vital Signs - First Documented 05/28/18 05/28/18 19:03 19:35 Temp 97.2 Pulse 92 Resp 24 B/P (MAP) 130/108 (115) Pulse Ox 99 O2 Delivery Nasal Cannula O2 Flow Rate 3.00 FiO2 32 Capillary Refill : Less Than 3 Seconds Height: 5'10.00" Weight: 204lbs. 8.0oz. 92.817376ok; 28.7 BMI Method:Stated General Appearance: moderate distress (MODERATELY DYSPNEIC, ANXIOUS), other ( CONSTANT MOVEMENTS. ) Neck: normal inspection Respiratory: no respiratory distress, respiratory distress, decreased breath sounds (DECREASED AERATION IN ALL LUNG HORNER, ESPECIALLY IN BASES), accessory muscle use, wheezing (DIFFUSE WHEEZING RIGHT > LEFT) Cardiovascular: regular rate, rhythm, no edema, no murmur Gastrointestinal: soft Neurologic/Psychiatric: supervisor carding II-XII nml as tested, no motor/sensory deficits, alert, oriented x 3 Skin: normal color, warm/dry Progress/Results/Core Measures Suspected Sepsis Recent Fever Within 48 Hours: No Infection Criteria Present: None New/Unexplained Altered Menta: No Sepsis Screen: No Definite Risk SIRS Temperature:98.2 Pulse: 89 Respiratory Rate: 20 Laboratory Tests 05/28/18 19:10: White Blood Count 10.4 Blood Pressure 132 /81 Mean: 98 Laboratory Tests 05/28/18 19:10: Creatinine 0.99, INR Comment 0.9, Platelet Count 333, Total Bilirubin 0.3 Results/Orders Lab Results Laboratory Tests Test 05/28/18 19:10 05/28/18 19:40 Range/Units White Blood Count 10.4 4.3-11.0 10^3/uL Red Blood Count 4.95 4.35-5.85 10^6/uL Hemoglobin 14.2 11.5-16.0 G/DL Hematocrit 42 35-52 % Mean Corpuscular Volume 85 80-99 FL Mean Corpuscular Hemoglobin 29 25-34 PG Mean Corpuscular Hemoglobin Concent 34 32-36 G/DL Red Cell Distribution Width 14.6 H 10.0-14.5 % Platelet Count 333 130-400 10^3/uL Mean Platelet Volume 9.6 7.4-10.4 FL Neutrophils (%) (Auto) 58 42-75 % Lymphocytes (%) (Auto) 31 12-44 % Monocytes (%) (Auto) 8 0-12 % Eosinophils (%) (Auto) 3 0-10 % Basophils (%) (Auto) 0 0-10 % Neutrophils # (Auto) 6.0 1.8-7.8 X 10^3 Lymphocytes # (Auto) 3.2 1.0-4.0 X 10^3 Monocytes # (Auto) 0.8 0.0-1.0 X 10^3 Eosinophils # (Auto) 0.3 0.0-0.3 10^3/uL Basophils # (Auto) 0.0 0.0-0.1 10^3/uL Prothrombin Time 11.8 L 12.2-14.7 SEC INR Comment 0.9 0.8-1.4 Activated Partial Thromboplast Time 28 24-35 SEC Sodium Level 141 135-145 MMOL/L Potassium Level 3.8 3.6-5.0 MMOL/L Chloride Level 107 98-107 MMOL/L Carbon Dioxide Level 22 21-32 MMOL/L Anion Gap 12 5-14 MMOL/L Blood Urea Nitrogen 10 7-18 MG/DL Creatinine 0.99 0.60-1.30 MG/DL Estimat Glomerular Filtration Rate 58 BUN/Creatinine Ratio 10 Glucose Level 84 70-105 MG/DL Calcium Level 9.6 8.5-10.1 MG/DL Corrected Calcium 9.4 8.5-10.1 MG/DL Magnesium Level 1.8 1.8-2.4 MG/DL Total Bilirubin 0.3 0.1-1.0 MG/DL Aspartate Amino Transf (AST/SGOT) 11 5-34 U/L Alanine Aminotransferase (ALT/SGPT) 13 0-55 U/L Alkaline Phosphatase 70 40-136 U/L Troponin I < 0.028 <0.028 NG/ML B-Type Natriuretic Peptide 137.7 H <100.0 PG/ML Total Protein 7.1 6.4-8.2 GM/DL Albumin 4.2 3.2-4.5 GM/DL Blood Gas Puncture Site RIGHT RADIAL Blood Gas Patient Temperature 97.9 Arterial Blood pH 7.46 H 7.37-7.43 Arterial Blood Partial Pressure CO2 32 L 35-45 MMHG Arterial Blood Partial Pressure O2 103 H 79-93 MMHG Arterial Blood HCO3 22 L 23-27 MMOL/L Arterial Blood Total CO2 23.3 21.0-31.0 MMOL/L Arterial Blood Oxygen Saturation 99 94-100 % Arterial Blood Base Excess -1.1 -2.5-2.5 MMOL/L Torsten Test POSITIVE Blood Gas Ventilator Setting NO Blood Gas Inspired Oxygen 3L Micro Results Microbiology 05/28/18 Blood Culture - Preliminary, Resulted No growth 05/28/18 Blood Culture - Preliminary, Resulted No growth 05/28/18 Influenza Types A,B Antigen (JADEN) - Final, Complete My Orders Orders - TIMOTHY HUGHES DO Chest 1 View, Ap/Pa Only (05/28/18 19:09) Methylprednisolone Sod Succ (Solu-Medrol (05/28/18 19:09) Saline Lock/Iv-Start (05/28/18:09) BNP (05/28/18:09) Cbc With Automated Diff (05/28/18:) Comprehensive Metabolic Panel (05/28/18:) Drug Screen Stat (Urine) (05/28/18:09) Magnesium (05/28/18:09) Protime With Inr (05/28/18:) Partial Thromboplastin Time (3/22/19 19:09) Troponin I (05/28/18 19:09) Ua Culture If Indicated (05/28/18 19:09) Blood Culture (05/28/18 19:09) Influenza A And B Antigens (05/28/18 19:09) Albuterol Pre-Mix Nebs (Rt) (Proventil (05/28/18 19:13) Albuterol/Ipra Inhalation Soln (Duoneb I (05/28/18 19:15) Dexamethasone Injection (Decadron Inject (05/28/18 19:15) Rt Request For Service (05/28/18 19:13) Svn Small Volume Nebulizer (05/28/18 19:13) Svn Small Volume Nebulizer (05/28/18 19:13) Arterial Blood Gas (05/28/18 19:13) Vital Signs/I&O 05/28/18 05/28/18 05/28/18 19:03 19:35 19:35 Temp 97.2 Pulse 92 82 Resp 24 B/P (MAP) 130/108 (115) Pulse Ox 99 98 98 O2 Delivery Nasal Cannula Nasal Cannula O2 Flow Rate 3.00 3.00 FiO2 32 Capillary Refill : Less Than 3 Seconds Blood Pressure Mean: 98 Progress Note : Progress Note INCREASED AERATION AND DECREASED WHEEZING AFTER HOUR LONG NEB TREATMENT BUT PT C/O INCREASING ANXIETY AND WANTING SOMETHING TO CALM HER DOWN--GIVEN ATIVAN WITH SOME IMPROVEMENT NO DETERIORATION IN PT'S CONDITION DURING ER STAY Diagnostic Imaging Comments CXR--CARDIOMEGALY, LEFT BASE SCARRING,NO ACUTE PROCESS, PER RADIOLOGIST REPORT @ 2007 Departure Communication (Admissions) 2029--SPOKE WITH DR WOODS, DYNAMO REPAIRER FOR [facility]. ACCEPTS PT FOR ADMIT. Impression Primary Impression: COPD with exacerbation Additional Impression: Anxiety Disposition: ADMITTED INPATIENT Condition: Improved Admissions Decision to Admit Reason: Admit from ER (General) Decision to Admit/Date: May 28, 2018 Time/Decision to Admit Time: 20:30 Departure-Patient Inst. Referrals: ALIZA CARTER (Family) Primary Care Physician [facility]/ (PCP) Primary Care Physician TIMOTHY HUGHES DO May 30, 2018 06:27
[2018-05-30] MEDS: ALPRAZolam 0.5 MG (XANAX) TAB PO PRN ×3 (06:30→23:26)
--- NOTE | 2018-05-30 08:51 | Progress Note (SOAP) ---
Subjective Subjective/Events-last exam Patient is breathing much better. She still has audible wheeze. She claimed her migraine headache is still bothering her despite taking Percocet. Review of Systems Date Seen by Provider: May 30, 2018 Time Seen by Provider: 07:00 Objective Exam Last Set of Vital Signs Vital Signs Date Time Temp Pulse Resp B/P (MAP) Pulse Ox O2 Delivery O2 Flow Rate FiO2 05/30/18 08:00 98.8 95 18 124/69 (87) 98 Nasal Cannula 3.00 05/28/18 19:35 32 Capillary Refill : Less Than 3 Seconds I&O Intake and Output 05/30/18 00:00 Intake Total 3894.5 ml Output Total 1775 ml Balance 2119.5 ml Intake Oral 3634 ml IV Total 260.5 ml Output Urine Total 1775 ml # Voids 1 General: Mild Distress (Due to headache) Neck: Supple Lungs: Other (Expiratory wheezing noted in the apical regions) Heart: Regular Rate Abdomen: Soft Skin: No Rashes Neuro: Normal Speech Results/Procedures Lab Microbiology 05/28/18 Blood Culture - Preliminary, Resulted No growth 05/28/18 Influenza Types A,B Antigen (JADEN) - Final, Complete 05/28/18 Urine Culture - Preliminary, Resulted Escherichia coli Radiology NAME: SCOUT [facility]URGESS [facility] REC#: [id number] PT STATUS: ADM IN : 1965 PHYSICIAN: TIMOTHY HUGHES DO ADMIT DATE: 05/28/18/ Signed Date of Exam: 05/28/18 CHEST 1 VIEW, AP/PA ONLY INDICATION: Shortness of breath. COMPARISON: 05/26/2018. FINDINGS: The heart remains mildly enlarged and unchanged. There is no evidence of pulmonary edema. The lungs are well aerated and free of infiltrate. Mild increased density is again noted along the left cardiac border which appears stable. IMPRESSION: Cardiomegaly with left basilar scarring. No acute changes noted when compared with previous exam. Dictated by: Dictated on workstation # [id number] Dict: 05/28/181951 Trans: 05/28/182122 Interpreted by: AKASH CORNEJO MD Electronically signed by: AKASH CORNEJO MD 05/28/182122 Assessment/Plan Assessment/Plan Assessment & Plan 1. COPD exacerbation -Patient has been initiated on IV Solu-Medrol -Albuterol treatments per respiratory therapy 05/30 -She will be given prednisone 60 mg today. Beginning tomorrow taper and most likely discharge. 2. Bronchitis without evidence for pneumonia by chest x-ray -Patient currently taking Zithromax 500 mg IV daily as well as Rocephin 1 g IV daily -Sputum culture 3. UTIEscherichia coli -Rocephin should cover 4. Headache migraine-like 05/30 -She has available Percocet as needed 5. Anxietyoverall has improved as of May 30 Clinical Quality Measures DVT/VTE Risk/Contraindication: Risk Factor Score Per Nursin RFS Level Per Nursing on Admit: 3=High KEE WOODS MD May 30, 2018 08:51
[2018-05-30] MEDS ORDERED: predniSONE 20 MG TAB PO NR (09:00)
[2018-05-30] MEDS ORDERED: predniSONE 20 MG TAB ONE (14:46)
[2018-05-30] MEDS: cefTRIAXone 1,000 MG/SWFI 10 ML IV PUSH IV SCH ×2 (20:26)
--- NOTE | 2018-05-30 20:50 | NUR ---
Dr Barreto notified of pt itching and elevation in BP, and pt states no relief in headache Orders received for Benadryl. Discuss with pt what Dr ordered pt upset and stated "i can get better results from taking meds from the street." Pt agreed to take Benadryl. will continued to monitor
[2018-05-30] MEDS: AZITHROMYCIN 250 MG TAB (ZITHROMAX) PO SCH (20:59)
[2018-05-30] MEDS ORDERED: diphenhydrAMINE 25 MG TAB (BENADRYL) PO ONE (21:00)
[2018-05-31] MEDS: RT-ALBUTEROL/IPRATROPIUM 3 ML (DUONEB) VIAL INH SCH ×6 (01:18→22:26)
[2018-05-31] MEDS: oxyCODONE/APAP 10/325MG (PERCOCET 10) TABLET PO PRN ×3 (04:08→17:32)
[2018-05-31 04:10] VITALS: BP 149/84
[2018-05-31] MEDS: ALPRAZolam 0.5 MG (XANAX) TAB PO PRN ×4 (06:54→20:33)
[2018-05-31 07:14] VITALS: BP 149/84
[2018-05-31 08:00] VITALS: BP 138/63
--- NOTE | 2018-05-31 09:51 | Progress Note-Hospitalist ---
Subjective HPI/CC On Admission Date Seen by Provider: May 31, 2018 Time Seen by Provider: 09:15 Subjective/Events-last exam Pt doing well Reports a headache Reports Percocet is not helping Exacerbation of COPD seems to be improving Ordered PT and OT Will discontinue Telemetry I do not want to increase narcotic dependency so will maintain Percocet Hasn't had a BM so I did order meds Review of Systems General: Fatigue Pulmonary: Dyspnea Objective Exam Vital Signs Vital Signs Date Time Temp Pulse Resp B/P (MAP) Pulse Ox O2 Delivery O2 Flow Rate FiO2 05/31/18 16:09 97.4 85 18 159/89 (112) 98 Nasal Cannula 3.00 05/28/18 19:35 32 Capillary Refill : Less Than 3 Seconds General Appearance: No Apparent Distress, WD/WN, Chronically ill Respiratory: No Accessory Muscle Use, No Respiratory Distress, Decreased Breath Sounds, Wheezing Cardiovascular: Regular Rate, Rhythm, No Edema, No Gallop, No JVD, No Murmur, Normal Peripheral Pulses Gastrointestinal: Normal Bowel Sounds, No Organomegaly, No Pulsatile Mass, Non Tender, Soft Extremity: Normal Capillary Refill, Normal Inspection, Normal Range of Motion, Non Tender, No Calf Tenderness, No Pedal Edema Neurologic/Psychiatric: Alert, Oriented x3, No Motor/Sensory Deficits, Depressed Affect Skin: Normal Color, Warm/Dry Results/Procedures Lab Patient resulted labs reviewed. Assessment/Plan Assessment and Plan Assess & Plan/Chief Complaint Assessment: AECOPD Bacterial bronchitis CAD CHF HTN Plan: IV steroids Monitor closely PT/OT Diagnosis/Problems Diagnosis/Problems (1) COPD with exacerbation Status: Acute (2) Cardiomyopathy Status: Chronic Qualifiers: Cardiomyopathy type: unspecified Qualified Codes: I42.9 - Cardiomyopathy, unspecified (3) Anxiety Status: Acute (4) Dyspnea Status: Chronic Qualifiers: Dyspnea type: unspecified Qualified Codes: R06.00 - Dyspnea, unspecified (5) Obesity Status: Chronic (6) Non-compliance Status: Chronic (7) Elevated brain natriuretic peptide (BNP) level Status: Acute (8) Smoker Status: Chronic Clinical Quality Measures DVT/VTE Risk/Contraindication: Risk Factor Score Per Nursin RFS Level Per Nursing on Admit: 3=High RODY ALDANA DO May 31, 2018 09:51
[2018-05-31] MEDS ORDERED: SENNA W/DOCUSATE (SENOKOT S) TABLET PO PRN (10:00)
--- NOTE | 2018-05-31 10:33 | NUR ---
Pt is Worship and declines sacraments.
--- NOTE | 2018-05-31 11:09 | Physical Therapy Progress Note ---
Therapy Progress Note Patient is observed by this PT ambulating in hallway independently and leaving the floor to find a vending machine for pop. No skilled PT indicated. KELSEA MAHAN PT May 31, 2018 11:09
--- NOTE | 2018-05-31 11:20 | NUR ---
TALKED TO PATIENT ABOUT AND OFFERED PRN DOSE OF SENNA. SHE REFUSED IT AT THIS TIME.
[2018-05-31] MEDS: diphenhydrAMINE 25 MG TAB (BENADRYL) PO PRN ×2 (11:22→17:31)
--- NOTE | 2018-05-31 11:42 | NUR ---
SPOKE WITH THE PATIENT ABOUT HER MEDICATIONS.S HE LISTED WHAT SHE IS TAKING. [facility] FILLED: 04-28-18 METOPROLOL TARTRATE 25MG 1/2 BID #60 04-27-18 PREDNISONE 10MG DAILY #30 (COMPLETE) 04-27-18 FUROSEMIDE 20MG DAILY #90 [facility] FILLED: 05-26-18 PREDNISONE 20MG DAILY #18 05-26-18 BACTRIM DS BID #10 SHE RECEIVES THE FOLLOWING THROUGH PATIENT ASSISTANCE AT [facility]: ZI WALKER SHE TAKE ASPIRIN 81MG DAILY OTC. SHE ALSO STATES SHE HAS GLIMEPIRIDE ON HAND NEEDED FOR BS WHEN SHE IS TAKING PREDNISONE.
--- NOTE | 2018-05-31 12:27 | Occ Therapy Progress Note ---
Therapy Progress Note Pt. in bed. Declines OOB activity. States, "I just want to sleep." Pt. reports that she has been getting out of bed on her own and that she is doing well. Declines all OT activity. Pt. rolls over in bed and closes eyes. No further OT warranted at this time as pt. states that she does not need it. Pt. reported to be up ad [place] with no difficulty from other staff. FRANNIE JACK OT May 31, 2018 12:27
[2018-05-31] MEDS ORDERED: GLIMEPIRIDE 1 MG (AMARYL) TAB PO PRN (12:45)
[2018-05-31] MEDS: methylPREDNISolone 40 MG/ML (Solu-MEDROL) VIAL IV SCH ×2 (13:32→20:33)
--- NOTE | 2018-05-31 14:20 | NUR ---
SOLU-MEDROL GIVEN. TALKED TO PATIENT ABOUT TAKING THE PRN DOSE OF AMARYL THAT IS ORDERED WHEN TAKING PREDNISONE. SHARED HER BLOOD GLUCOSE RESULTS WITH HER. SHE DOES NOT WANT TO TAKE IT AT THIS TIME. WE WILL CONTINUE TO MONITOR HER BLOOD SUGAR.
[2018-05-31 16:09] VITALS: BP 159/89
[2018-05-31] MEDS: AZITHROMYCIN 250 MG TAB (ZITHROMAX) PO SCH (20:33)
[2018-05-31] MEDS: SACUBITRIL/VALSARTAN 24/26 MG (ENTRESTO) TABLET PO SCH (20:33)
[2018-05-31] MEDS: meTOprolol TARTRATE 25 MG (LOPRESSOR) TABLET PO SCH (20:33)
[2018-05-31] MEDS: cefTRIAXone 1,000 MG/SWFI 10 ML IV PUSH IV SCH ×2 (20:33)
[2018-05-31] MEDS ORDERED: NON-FORMULARY MEDICATION 1 EA EA (Fluticasone/Salmeterol (Advair 250-50 Diskus) 1 PUFF) IH SCH (21:00)
--- NOTE | 2018-05-31 21:17 | NUR ---
PT BLOOD SUGAR 275. SHARED WITH PT AND EDUCATED ABOUT HER MEDICATIONS AND SOLU-MEDROL. PT AGREED TO TAKE PRN DOSE OF AMARYL.
[2018-05-31] MEDS: RT-ADVAIR HFA 115/21 MCG PER PUFF IH SCH (22:26)
[2018-05-31 23:51] VITALS: BP 146/85
[2018-06-01] MEDS: oxyCODONE/APAP 10/325MG (PERCOCET 10) TABLET PO PRN ×2 (00:49→08:41)
[2018-06-01] MEDS: RT-ALBUTEROL/IPRATROPIUM 3 ML (DUONEB) VIAL INH SCH ×3 (02:44→10:30)
[2018-06-01] MEDS: ALPRAZolam 0.5 MG (XANAX) TAB PO PRN ×2 (04:36→10:23)
[2018-06-01] MEDS ORDERED: UMECLIDINIUM BROMIDE (INCRUSE ELLIPTA) 7'S IH SCH (08:00)
[2018-06-01 08:02] VITALS: BP 127/65
[2018-06-01] MEDS: meTOprolol TARTRATE 25 MG (LOPRESSOR) TABLET PO SCH (08:40)
[2018-06-01] MEDS: methylPREDNISolone 40 MG/ML (Solu-MEDROL) VIAL IV SCH (08:42)
[2018-06-01] MEDS: SACUBITRIL/VALSARTAN 24/26 MG (ENTRESTO) TABLET PO SCH (08:52)
[2018-06-01] MEDS ORDERED: FUROSEMIDE 20 MG (LASIX) TAB PO SCH (09:00)
[2018-06-01] MEDS ORDERED: ASPIRIN E.C. 81 MG (ECOTRIN) TAB PO SCH (09:00)
[2018-06-01] MEDS ORDERED: TIOTROPIUM BROMIDE (SPIRIVA) 5'S INHALER IH SCH (09:00)
[2018-06-01] MEDS ORDERED: PRED10TA22 PO (09:48)
[2018-06-01] MEDS ORDERED: CEPH-507 PO (09:48)
--- NOTE | 2018-06-01 09:50 | Discharge Summary-Hospitalist ---
Diagnosis/Chief Complaint Date of Admission May 28, 2018 at 20:30 Date of Discharge Discharge Date: Jun 01, 2018 Discharge Diagnosis (1) COPD with exacerbation Status: Acute (2) Cardiomyopathy Status: Chronic (3) Anxiety Status: Acute (4) Dyspnea Status: Chronic (5) Obesity Status: Chronic (6) Non-compliance Status: Chronic (7) Elevated brain natriuretic peptide (BNP) level Status: Acute (8) Smoker Status: Chronic Discharge Summary Discharge Physical Exam Allergies: Coded Allergies: buspirone (Verified Allergy, Mild, 05/02/17) Made"legs Shaky" amitriptyline (Verified Allergy, Unknown, 05/02/17) " MAKES ME DO WEIRD THINGS LIKE WALK IN MY SLEEP AND HAVE HALLUCINATIONS." Vitals & I&Os Vital Signs Date Time Temp Pulse Resp B/P (MAP) Pulse Ox O2 Delivery O2 Flow Rate FiO2 06/01/18 11:35 80 16 127/65 96 Room Air 06/01/18 09:15 97.8 06/01/18 08:02 4.00 05/28/18 19:35 32 General Appearance: No Apparent Distress, WD/WN Respiratory: Chest Non Tender, Lungs Clear, Normal Breath Sounds, No Accessory Muscle Use, No Respiratory Distress Cardiovascular: Regular Rate, Rhythm, No Edema, No Gallop, No JVD, No Murmur, Normal Peripheral Pulses Neurologic/Psychiatric: Alert, Oriented x3, No Motor/Sensory Deficits, Normal Mood/Affect Hospital Course Was the Problem List Reviewed?: Yes Hospital course: Pt had a standard but lengthy hospital course. she was admitted placed on Empiric antibiotics and IV steroids due to exacerbation of COPD and UTI. Pt overall had slow recovery due to the severity of her COPD and comorbidities including cardiomyopathy and psycho-social issues. She improved on IV steroids, labs were monitored, vitals remain stable, and she will have close follow-up with [facility] and go back to work to [employer] tomorrow, and was deemed stable for discharge. Overall prognosis is poor considering her noncompliance with medical treatments and recommendations. Labs (last 24 hrs) Laboratory Tests 05/31/18 21:04: Glucometer 275H Microbiology 05/28/18 Blood Culture - Preliminary, Resulted No growth 05/28/18 Influenza Types A,B Antigen (JADEN) - Final, Complete 05/28/18 Urine Culture - Final, Complete Escherichia coli Patient resulted labs reviewed. Discussion & Recommendations Discharge Planning: <30 minutes discharge planning Discharge Home Medications: Active Scripts Active Keflex (Cephalexin) 500 Mg Capsule 500 Mg PO QID Prednisone 10 Mg Tab.ds.pk 10 Mg PO DAILY Take 6 tabs(60mg)daily,decrease by 1 tab(10MG)daily. Reported Entresto 24 mg-26 mg Tablet (Sacubitril/Valsartan) 1 Each Tablet 1 Tab PO BID Aspirin EC (Aspirin) 81 Mg Tablet.dr 81 Mg PO DAILY Advair 250-50 Diskus (Fluticasone/Salmeterol) 1 Each Blst.w.dev 1 Puff IH BID Spiriva (Tiotropium [place]) 1 Inh Aerp 1 Cap IH DAILY Furosemide 20 Mg Tablet 20 Mg PO DAILY Iprat-Albut 0.5-3(2.5) mg/3 ml (Ipratropium/Albuterol Sulfate) 3 Ml Ampul.neb 3 Ml IH QID PRN Glimepiride 1 Mg Tablet 1 Mg PO DAILY PRN Metoprolol Tartrate 25 Mg Tablet 12.5 Mg PO BID TAKES 1/2 (25MG) TABLET Ventolin Hfa (Albuterol Sulfate) 1 Puff Puff 2 Puff IH Q4H PRN Instructions to patient/family Please see electronic discharge instructions given to patient. Clinical Quality Measures DVT/VTE Risk/Contraindication: Risk Factor Score Per Nursin RFS Level Per Nursing on Admit: 3=High Problem Qualifiers (1) Cardiomyopathy: Cardiomyopathy type: unspecified Qualified Codes: I42.9 - Cardiomyopathy, unspecified (2) Dyspnea: Dyspnea type: unspecified Qualified Codes: R06.00 - Dyspnea, unspecified RODY ALDANA DO Jun 01, 2018 09:50
[2018-06-01] MEDS: RT-ADVAIR HFA 115/21 MCG PER PUFF IH SCH (10:29)
--- NOTE | 2018-06-01 10:31 | NUR ---
NOTE THAT AFTER PT HAD RETURNED TO HER RM THIS RM WENT OVER DC ORDERS WITH PT -- SL WAS DC'D -- PT VOICED THAT SHE WAS TIRED AND WANTED TO TAKE NAP AND LEAVE AFTER --
[2018-06-01 11:35] VITALS: BP 127/65
== END 2018-06-01 11:35 | disposition home or self-care (01) | DRG 191 ==
LOC: EDUNIT# 18:09 → ER 18:10 → 4TH 20:30
PROVIDERS: ADMIT Family Medicine; ATTEND Family Medicine
DX: J44.1 Chronic obstructive pulmonary disease with (acute) exacerbation (principal); J44.0 Chronic obstructive pulmonary disease with (acute) lower respiratory infection; J40 Bronchitis, not specified as acute or chronic; G43.909 Migraine, unspecified, not intractable, without status migrainosus; N39.0 Urinary tract infection, site not specified; B96.20 Unspecified Escherichia coli [E. coli] as the cause of diseases classified elsewhere; I42.9 Cardiomyopathy, unspecified; I11.0 Hypertensive heart disease with heart failure; I50.9 Heart failure, unspecified; F41.9 Anxiety disorder, unspecified; G47.30 Sleep apnea, unspecified; I25.10 Atherosclerotic heart disease of native coronary artery without angina pectoris; F17.210 Nicotine dependence, cigarettes, uncomplicated; E09.9 Drug or chemical induced diabetes mellitus without complications; K21.9 Gastro-esophageal reflux disease without esophagitis; K59.09 Other constipation; E78.00 Pure hypercholesterolemia, unspecified; F31.9 Bipolar disorder, unspecified; T38.0X5A Adverse effect of glucocorticoids and synthetic analogues, initial encounter; E78.1 Pure hyperglyceridemia; F15.10 Other stimulant abuse, uncomplicated; F51.04 Psychophysiologic insomnia; Z79.52 Long term (current) use of systemic steroids; Z87.19 Personal history of other diseases of the digestive system; Z87.11 Personal history of peptic ulcer disease; Z91.5 Personal history of self-harm; Z91.19 Patient's noncompliance with other medical treatment and regimen
CPT/HCPCS: 36415; 36600; 71045; 80053; 80306; 81000; 82805; 82962; 83735; 83880; 84484; 85007; 85025; 85027; 85610; 85730; 87040; 87077; 87088; 87186; 87804; 94640; 94644; 94760; 96374; 96375

== ENCOUNTER 2018-06-30 10:51 | Emergency (ER) | payer SELFPAY ==
[~2018-06-30] VITALS: Ht 177.8 cm; Wt 90.8 kg
[~2018-06-30 10:51] MED LIST changes: +CEPH-507 PO
[2018-06-30] MEDS ORDERED: RT-ALBUTEROL SULF 2.5 MG/3 ML PRE-MIX VIAL INH SCH (11:00)
[2018-06-30] MEDS ORDERED: RT-ALBUTEROL/IPRATROPIUM 3 ML (DUONEB) VIAL INH ONE (11:00)
[2018-06-30] MEDS ORDERED: LORazepam INJ 2 MG/ML (ATIVAN) VIAL IVP PRN (11:00)
--- NOTE | 2018-06-30 11:02 | ED Dyspnea ---
General Stated Complaint: SOA Source of Information: Patient Exam Limitations: No Limitations History of Present Illness Date Seen by Provider: Jun 30, 2018 Time Seen by Provider: 11:01 Initial Comments To ER with shortness of breath. Has known COPD, wears oxygen 4 L around-the- clock. Symptoms of worsening shortness of breath and cough began about 4-5 days ago. On Thursday, 3 days ago she was started on prednisone and is still on prednisone 60 mg daily. No fevers or chills. She does think that she might have a urinary tract infection due to some dysuria that she is having. Timing/Duration: 1 Week Severity: Moderate Modifying Factors: Improves With Coughing Associated Symptoms: Cough, Wheezing Allergies and Home Medications Allergies Coded Allergies: buspirone (Verified Allergy, Mild, 05/02/17) Made"legs Shaky" amitriptyline (Verified Allergy, Unknown, 05/02/17) " MAKES ME DO WEIRD THINGS LIKE WALK IN MY SLEEP AND HAVE HALLUCINATIONS." Home Medications Albuterol Sulfate 1 Puff Puff, 2 PUFF IH Q4H PRN for SHORTNESS OF BREATH, ( Reported) Aspirin 81 Mg Tablet.dr, 81 MG PO DAILY, (Reported) Cephalexin 500 Mg Capsule, 500 MG PO QID Prescribed by: RODY ALDANA on 06/01/1848 Cephalexin 500 Mg Capsule, 500 MG PO TID Prescribed by: ELLEN ACE on 06/30/18 1312 Fluticasone/Salmeterol 1 Each Blst.w.dev, 1 PUFF IH BID, (Reported) Furosemide 20 Mg Tablet, 20 MG PO DAILY, (Reported) Glimepiride 1 Mg Tablet, 1 MG PO DAILY PRN for WHEN TAKING PREDNISONE, (Reported ) Ipratropium/Albuterol Sulfate 3 Ml Ampul.neb, 3 ML IH QID PRN for SHORTNESS OF BREATH, (Reported) Metoprolol Tartrate 25 Mg Tablet, 12.5 MG PO BID, (Reported) TAKES 1/2 (25MG) TABLET Prednisone 10 Mg Tab.ds.pk, 10 MG PO DAILY Take 6 tabs(60mg)daily,decrease by 1 tab(10MG)daily. Prescribed by: RODY ALDANA on 06/01/18 0948 Sacubitril/Valsartan 1 Each Tablet, 1 TAB PO BID, (Reported) Tiotropium [place] 1 Inh Aerp, 1 CAP IH DAILY, (Reported) Patient Home Medication List Home Medication List Reviewed: Yes Review of Systems Review of Systems Constitutional: see HPI EENTM: see HPI Respiratory: see HPI, cough, short of breath, wheezing Cardiovascular: no symptoms reported Genitourinary: no symptoms reported Musculoskeletal: no symptoms reported Skin: no symptoms reported Psychiatric/Neurological: No Symptoms Reported Endocrine: No Symptoms Reported Hematologic/Lymphatic: No Symptoms Reported Past Taultvl-Xfxdax-Nlqdrd Hx Patient Social History Drug of Choice: + IV METH, ALSO SMOKES IT; MULTIPLE BENZODIAZEPINE OD'S Type Used: Cigarettes 2nd Hand Smoke Exposure: Yes Recent Foreign Travel: No Contact w/Someone Who Travel: No Recent Hopitalizations: Yes Immunizations Up To Date Tetanus Booster (TDap): Unknown Date of Pneumonia Vaccine: Apr 30, 2018 Date of Influenza Vaccine: Apr 30, 2018 Seasonal Allergies Seasonal Allergies: No Past Medical History Surgeries: Yes (EGD/COLONOSCOPY; CARDIAC CATH 09/18/17--NO INTERVENTION) Cardiac Respiratory: Yes (O2 AT 2-3L/NC) Pneumonia, Chronic Bronchitis, Sleep Apnea, COPD Currently Using CPAP: No Currently Using BIPAP: Yes Cardiac: Yes Cardiomyopathy, Coronary Artery Disease, High Cholesterol, Hypertension Neurological: Yes Headaches /Migraines 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 Disorders: No 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 Disorders: Denies 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 Sexually Transmitted Disease: No HIV/AIDS: No Genitourinary: No Gastrointestinal: Yes (GASTRITIS AND ESOPHAGEAL CANDIDIASIS 04/2017) Gastroesophageal Reflux, Gastrointestinal Bleed, Chronic Constipation, Chronic Diarrhea, Esophagitis, Ulcer Musculoskeletal: Yes (chronic shoulder and neck pain) Endocrine: Yes (DM- only while on steriods per pt) Diabetes, Non-Insulin dep HEENT: No Cancer: No Psychosocial: Yes (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; POLYSUBSTANCE ABUSE) Sleep Difficulties, Anxiety, Suicide Attempts, Bipolar, Depression Integumentary: No Blood Disorders: Yes (ANEMIA) Adverse Reaction/Blood Tranf: No Family Medical History Cancer 03 MOTHER, Onset:66 (LUNG ) 09 BROTHER (LUNG ) Congestive heart failure 03 FATHER Heart Disease, Cancer Physical Exam Vital Signs Vital Signs - First Documented 06/30/18 10:52 Temp 98.1 Pulse 100 Resp 30 B/P (MAP) 155/92 (113) Pulse Ox 100 O2 Delivery Nasal Cannula O2 Flow Rate 4.00 Capillary Refill : Height, Weight, BMI Height: 5'10.00" Weight: 209lbs. 4.0oz. 94.650376ku; 28.7 BMI Method:Stated General Appearance: WD/WN, Anxious, Mild Distress HEENT: PERRL/EOMI, TMs Normal Neck: Full Range of Motion, Normal Inspection Respiratory: Decreased Breath Sounds, Wheezing Cardiovascular: Regular Rate, Rhythm, Normal Peripheral Pulses Gastrointestinal: Normal Bowel Sounds, Non Tender, Soft Neurologic/Psychiatric: Alert, Oriented x3 Skin: Normal Color, Warm/Dry Progress/Results/Core Measures Results/Orders Lab Results Laboratory Tests Test 06/30/18 11:00 06/30/18 11:15 Range/Units Urine Color YELLOW Urine Clarity CLEAR Urine pH 6 5-9 Urine Specific [place] 1.015 L 1.016-1.022 Urine Protein NEGATIVE NEGATIVE Urine Glucose (UA) NEGATIVE NEGATIVE Urine Ketones NEGATIVE NEGATIVE Urine Nitrite NEGATIVE NEGATIVE Urine Bilirubin NEGATIVE NEGATIVE Urine Urobilinogen NORMAL NORMAL MG/DL Urine Leukocyte Esterase 1+ H NEGATIVE Urine RBC (Auto) 2+ H NEGATIVE Urine RBC 0-2 /HPF Urine WBC 5-10 H /HPF Urine Squamous Epithelial Cells 2-5 /HPF Urine Crystals NONE /LPF Urine Bacteria FEW H /HPF Urine Casts NONE /LPF Urine Mucus NEGATIVE /LPF Urine Culture Indicated YES Urine Opiates Screen NEGATIVE NEGATIVE Urine Oxycodone Screen NEGATIVE NEGATIVE Urine Methadone Screen NEGATIVE NEGATIVE Urine Propoxyphene Screen NEGATIVE NEGATIVE Urine Barbiturates Screen NEGATIVE NEGATIVE Ur Tricyclic Antidepressants Screen NEGATIVE NEGATIVE Urine Phencyclidine Screen NEGATIVE NEGATIVE Urine Amphetamines Screen NEGATIVE NEGATIVE Urine Methamphetamines Screen NEGATIVE NEGATIVE Urine Benzodiazepines Screen NEGATIVE NEGATIVE Urine Cocaine Screen NEGATIVE NEGATIVE Urine Cannabinoids Screen NEGATIVE NEGATIVE White Blood Count 8.0 4.3-11.0 10^3/uL Red Blood Count 4.90 4.35-5.85 10^6/uL Hemoglobin 14.1 11.5-16.0 G/DL Hematocrit 42 35-52 % Mean Corpuscular Volume 86 80-99 FL Mean Corpuscular Hemoglobin 29 25-34 PG Mean Corpuscular Hemoglobin Concent 34 32-36 G/DL Red Cell Distribution Width 14.8 H 10.0-14.5 % Platelet Count 271 130-400 10^3/uL Mean Platelet Volume 9.8 7.4-10.4 FL Neutrophils (%) (Auto) 59 42-75 % Lymphocytes (%) (Auto) 28 12-44 % Monocytes (%) (Auto) 9 0-12 % Eosinophils (%) (Auto) 4 0-10 % Basophils (%) (Auto) 0 0-10 % Neutrophils # (Auto) 4.7 1.8-7.8 X 10^3 Lymphocytes # (Auto) 2.2 1.0-4.0 X 10^3 Monocytes # (Auto) 0.8 0.0-1.0 X 10^3 Eosinophils # (Auto) 0.3 0.0-0.3 10^3/uL Basophils # (Auto) 0.0 0.0-0.1 10^3/uL D-Dimer 0.34 0.00-0.49 UG/ML Blood Gas Puncture Site R RADIAL Blood Gas Patient Temperature 98.1 Arterial Blood pH 7.43 7.37-7.43 Arterial Blood Partial Pressure CO2 39 35-45 MMHG Arterial Blood Partial Pressure O2 131 H 79-93 MMHG Arterial Blood HCO3 25 23-27 MMOL/L Arterial Blood Total CO2 26.6 21.0-31.0 MMOL/L Arterial Blood Oxygen Saturation 99 94-100 % Arterial Blood Base Excess 1.5 -2.5-2.5 MMOL/L Torsten Test YES-POS Blood Gas Ventilator Setting NO Blood Gas Inspired Oxygen 4 L Sodium Level 143 135-145 MMOL/L Potassium Level 3.6 3.6-5.0 MMOL/L Chloride Level 106 98-107 MMOL/L Carbon Dioxide Level 27 21-32 MMOL/L Anion Gap 10 5-14 MMOL/L Blood Urea Nitrogen 11 7-18 MG/DL Creatinine 0.76 0.60-1.30 MG/DL Estimat Glomerular Filtration Rate > 60 BUN/Creatinine Ratio 14 Glucose Level 109 H 70-105 MG/DL Calcium Level 9.6 8.5-10.1 MG/DL Corrected Calcium 9.4 8.5-10.1 MG/DL Magnesium Level 1.7 L 1.8-2.4 MG/DL Total Bilirubin 0.5 0.1-1.0 MG/DL Aspartate Amino Transf (AST/SGOT) 13 5-34 U/L Alanine Aminotransferase (ALT/SGPT) 18 0-55 U/L Alkaline Phosphatase 68 40-136 U/L B-Type Natriuretic Peptide 119.0 H <100.0 PG/ML Total Protein 6.8 6.4-8.2 GM/DL Albumin 4.2 3.2-4.5 GM/DL My Orders Orders - ELLEN ACE [employer] Ua Culture If Indicated (06/30/18 10:57) Drug Screen Stat (Urine) (06/30/18 10:57) Cbc With Automated Diff (06/30/18 10:57) Comprehensive Metabolic Panel (06/30/18 10:57) Ed Iv/Invasive Line Start (06/30/18 10:57) Chest Pa/Lat (2 View) (06/30/18 10:57) Lorazepam Injection (Ativan Injection) (06/30/18 11:00) Albuterol/Ipra Inhalation Soln (Duoneb I (06/30/18 11:00) Albuterol Pre-Mix Nebs (Rt) (Proventil (06/30/18 11:00) Svn Small Volume Nebulizer (06/30/18 10:57) Svn Small Volume Nebulizer (06/30/18 10:57) Magnesium (06/30/18 11:02) BNP (06/30/18 11:02) Arterial Blood Gas (06/30/18 11:20) Arterial Blood Draw (06/30/18 11:22) Urine Culture (06/30/18 11:00) Ketorolac Injection (Toradol Injection) (06/30/18 12:15) Fibrin Degradation Products (06/30/18 12:41) Medications Given in ED Current Medications Medications Dose Ordered Sig/Vladimir Route Start Time Stop Time Status Last Admin Dose Admin Albuterol/ Ipratropium 3 ml ONCE ONCE INH 06/30/18 11:00 06/30/18 11:01 DC 06/30/18 11:22 3 ML Ketorolac Tromethamine 15 mg ONCE ONCE IVP 06/30/18 12:15 06/30/18 12:16 DC 06/30/18 12:23 15 MG Lorazepam 1 mg ONCE PRN IVP 06/30/18 11:00 06/30/18 11:05 1 MG Vital Signs/I&O 06/30/18 06/30/18 10:52 11:24 Temp 98.1 Pulse 100 Resp 30 B/P (MAP) 155/92 (113) Pulse Ox 100 99 O2 Delivery Nasal Cannula Nasal Cannula O2 Flow Rate 4.00 4.00 Departure Communication (Admissions) 1311- She is not hypoxic or hypercarbic, she still feels short of breath but this is typical for her presentations in the past. Anxiety is a large factor in this. Her lung sounds are diminished but with better aeration currently after the hour-long treatment and there is minimal residual wheezing. She has oxygen at home. She has prednisone at home. She has a nebulizer at home. There is no benefit to her staying in the hospital as anything that she needs she already has at home.. I called [facility], they will see her tomorrow at 4 PM. Impression Primary Impression: Anxiety Additional Impression: COPD (chronic obstructive pulmonary disease) Qualified Codes: J44.9 - Chronic obstructive pulmonary disease, unspecified Disposition: HOME, SELF-CARE Condition: Stable Departure-Patient Inst. Decision time for Depature: 13:10 Referrals: [facility] (PCP) Primary Care Physician ALIZA CARTER (Family) Primary Care Physician Patient Instructions: Exacerbation of COPD, Urinary Tract Infection, Adult (DC) Add. Discharge Instructions: 1. Follow-up with [facility] 2. Antibiotics as directed 3. Scripts Cephalexin (Keflex) 500 Mg Capsule 500 MG PO TID, #15 CAP Prov: ELLEN ACE APRN 06/30/18 Copy Copies To 1: CONNOR JOHNSTON PETER J APRN Jun 30, 2018 11:02
--- OUTSIDE RECORDS SUMMARY | 2018-06-30 11:25 | XMS REPORT ---
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 Active Problem TMJ (sprain of temporomandibular joint) S03.4XXA Active 08552283 Problem Migraine G43.909 Active 40484754 Problem Memory loss R41.3 Active 70650665 Problem Chronic constipation K59.09 Active 225870038 Problem Bipolar disorder with depression F31.30 Active 84538561 Problem Bipolar disorder, unspecified F31.9 Active 12050858 Problem Migraine without aura and without status migrainosus, not intractable G43.009 Active 079281220 Problem Chronic bronchitis, unspecified chronic bronchitis type J42 Active 37158525 Problem Methamphetamine use disorder, moderate, 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 Active 52205337 Problem Acute on chronic systolic congestive heart failure I50.23 Active 768602094 Problem Other emphysema J43.8 Active 70916590 Problem COPD exacerbation J44.1 Active 463250868 Problem Generalized anxiety disorder F41.1 Active 31268807 Problem Examination of eyes and vision V72.0 Active 432059441 Problem Diabetes E11.9 Active 730008331 Problem Intractable cyclical vomiting with nausea G43.A1 Active 63966925 Problem Anxiety F41.9 Active 66046615 Problem Chronic obstructive pulmonary disease, unspecified COPD type J44.9 Active 85555040 ALLERGIES No Information ENCOUNTERS Encounter Location Date Diagnosis [place] [id number] [address] Jun, COPD exacerbation J44.1 and Otalgia, right ear H92.01 [facility] [address] [address] Jun, [place] [address] [address] May, Chronic obstructive pulmonary disease with acute exacerbation J44.1 and Tobacco abuse Z72.0 [facility] [address] [address] [id number] [place] [address] 19726- 7992 May, Chronic obstructive pulmonary disease with acute exacerbation J44.1 [facility] [id number] [place] [address] 53230- 6021 Apr, [facility] [id number] [place] [address] 03885- 5832 Apr, [facility] [id number] [place] [address] 12160- 1839 Feb, Diabetes E11.9 ; Chronic obstructive pulmonary disease with (acute) exacerbation J44.1 and Encounter for immunization Z23 [place] [address] [address] [id number] [place] [address] 29278- 0519 Jan, COPD exacerbation J44.1 [facility] [address] [address] [id number] [place] [address] 34657- 0696 Jan, Dental abscess K04.7 [place] [address] [address] [id number] [place] [address] 75556- 2382 Jan, COPD exacerbation J44.1 and Acute on chronic systolic congestive heart failure I50.23 [place] [address] [id number] [place] [address] 94631- 9897 Dec, [facility] [id number] [place] [address] 36781- 6716 Dec, [facility] [id number] [place] [address] 59763- 3680 Nov, [facility] [id number] [place] [address] 94334- 5917 Nov, COPD with exacerbation J44.1 and Urinary tract infection without hematuria, site unspecified N39.0 [facility] [id number] [address] 47[address] Nov, Chronic obstructive pulmonary disease, unspecified COPD type J44.9 [facility] [address] [place] [address] 6968 Oct, [facility] [address] [facility] [id number] [place] [address] 9141 Oct, [facility] [id number] [place] [address], [place] [address]- 3560 Oct, [facility] [address] [place] [id number] [place] [address]- 7517 Oct, [facility] [id number] [place] [address], [place] [address]- 6563 Oct, Thrush B37.0 [facility] [address] [address]- 8841 Sep, COPD with exacerbation J44.1 and Anxiety F41.9 [facility] [address] [address]- 3197 Sep, [facility] [address] [place] [address], [place] [address]- 2567 Sep, [facility] [address] [address]- 5215 Sep, [facility] [address] [address]- 8[address] Sep, Acute congestive heart failure, unspecified heart failure type I50.9 and Anxiety disorder, unspecified F41.9 [facility] [address] [place] [id number] [address]- 9150 Sep, Heart failure, unspecified HF chronicity, unspecified heart failure type I50.9 [facility] [address] [place] [address] [id number] [address]- 0179 Sep, [facility] [address] [address]- 7731 Aug, Chronic obstructive pulmonary disease with acute exacerbation J44.1 [facility] [address] [facility] [id number] [address] 4096 Aug, [facility] [address] [facility] [id number] [address] Aug, [facility] [address] [facility] [id number] [address]- 7816 July, [facility] [address] [facility] [id number] [address] 8342 July, [facility] [address] [facility] [id number] [place] [address] 55565- 4336 July, Diabetes E11.9 and Chronic obstructive pulmonary disease with acute exacerbation J44.1 [facility] [address] [address]- 0081 Jun, Chronic obstructive pulmonary disease with acute exacerbation J44.1 ; Diabetes E11.9 and Tobacco abuse Z72.0 [facility] [address] [facility] [id number] [address]- 0198 Jun, [facility] [address] [address]- 8937 Jun, [facility] [address] [address]- 2754 May, [facility] [address], [place] [address]- 4747 May, [facility] [address] [facility] [id number], [place] [address] 17 May, 2017 [facility] [address] [facility] [id number] [address]- 4930 16 May, 2017 [facility] [address] [facility] [id number] [address]- 8493 15 May, 2017 [facility] [address], [place] [address]- 2380 May, Diarrhea, unspecified type R19.7 and Intractable cyclical vomiting with nausea G43.A1 [facility] [address] 9[address]- 1495 May, [facility] [address] [place] [id number] [place] [address] 22272- 1935 05 May, 2017 [facility] [address] 66972- 0970 28 Apr, 2017 COPD exacerbation J44.1 ; Esophageal candidiasis B37.81 ; Other acute gastritis with hemorrhage K29.01 and Acute posthemorrhagic anemia D62 [place] [address] 48208- 2252 Apr, Viral illness B34.9 and COPD exacerbation J44.1 [facility] [address] 56593 -5173 Apr, Shortness of breath R06.02 and Pneumonia of both lower lobes due to infectious organism J18.9 [facility] [address] [address] -5893 Mar, COPD with acute exacerbation J44.1 [place] [address] 30674- 2633 Mar, Chronic obstructive pulmonary disease with acute exacerbation J44.1 and Diabetes E11.9 [facility] [address] [place] [id number] [place] [address] 88887- 3170 Mar, [facility] [address] 83795- 8984 Mar, [facility] [address] 46610 -2197 Mar, COPD exacerbation J44.1 [facility] [address] 16811- 7402 09 Mar, 2017 [facility] [address] 06975- 4932 Mar, Migraine G43.909 ; Hypokalemia E87.6 and Type 2 diabetes mellitus without complications E11.9 [place] [address] [id number] [place] [address] 17843- 0887 Feb, [place] [address] [place] [id number] [place] [address] 94260- 2500 Feb, [place] [address] [place] [id number] [place] [address] 03934- 4655 Feb, Methamphetamine use disorder, moderate, 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 ; Major depressive disorder, recurrent, moderate F33.1 ; Anxiety disorder, unspecified F41.9 and Tobacco abuse Z72.0 [place] [address] [place] [id number] [place] [address] 80466- 7503 Jan, Major depressive disorder, recurrent, moderate F33.1 [place] [address] [place] [id number] [place] [address] 26961- 9632 Jan, [place] [address] [place] [id number] [place] [address] 11369- 8460 Jan, [place] [address] [place] [id number] [place] [address] 41773- 3959 Jan, Major depressive disorder, recurrent, moderate F33.1 [place] [address] [place] [id number] [place] [address] 48751- 0023 Jan, Major depressive disorder, recurrent, moderate F33.1 ; Anxiety disorder, unspecified F41.9 ; Methamphetamine use disorder, moderate, 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 and Tobacco abuse Z72.0 [place] [address] [place] [id number] [place] [address] 76751- 7321 Jan, [place] [address] [place] [id number] [place] [address] 20901- 4197 06 Jan, 2017 Chronic obstructive pulmonary disease with acute exacerbation J44.1 and Diabetes E11.9 [place] [address] [place] [id number] [place] [address] 91475- 8707 Jan, [facility] [address], [place] [address]- 9855 Jan, [facility] [address] [place] [id number] [place] [address] 40297- 7763 Dec, Acute respiratory failure with hypoxia J96.01 ; Chronic bronchitis, unspecified chronic bronchitis type J42 and Tobacco use Z72.0 [facility] [address] [place] [id number] [place] [address] 31209- 6746 Dec, [facility] [address] [place] [address] [id number] Nov, Dental caries K02.9 and Dental examination Z01.20 [facility] [address] [place] [address] 85686- 0776 Nov, Major depressive disorder, recurrent, moderate F33.1 ; Anxiety disorder, unspecified F41.9 and 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 [facility] [address] [id number] Oct, Dental examination Z01.20 [facility] [address] [place] [address] 79113- 6413 Oct, [facility] [address] [place] [address] 28194- 8635 Oct, Diabetes E11.9 and Thrush B37.0 [facility] [address] [place] [address] 15829- 8926 Oct, [facility] [address] [place] [address] 65149- 3606 Oct, [facility] [address] [place] [id number] [place] [address] 55518- 7399 Oct, [facility] [address] [place] [address] 74407- 5313 Sep, Major depressive disorder, recurrent, moderate F33.1 ; Anxiety disorder, unspecified F41.9 and Bipolar disorder, unspecified F31.9 [facility] [address] [place] [id number] [place] [address] 44398- 7905 Sep, Acute exacerbation of chronic obstructive pulmonary disease (COPD) J44.1 and Migraine G43.909 [facility] [address] [place] [id number] [place] [address] 18597- 2154 Sep, [facility] [address] [id number] Sep, [facility] [address] [place] [id number] [place] [address] 79094- 3777 Sep, Acute exacerbation of chronic obstructive pulmonary disease (COPD) J44.1 [facility] [address] [place] [id number] [place] [address] 63465 -7924 Sep, Acute exacerbation of chronic obstructive pulmonary disease (COPD) J44.1 [facility] [address] [place] [id number] [place] [address] 74140- 5693 Aug, [facility] [address] [place] [id number] [place] [address] 74799- 4205 Aug, Major depressive disorder, recurrent, moderate F33.1 ; Anxiety disorder, unspecified F41.9 and 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 [facility] [address] [place] [id number] [place] [address] 89364- 6359 Aug, Wheezing R06.2 ; Non morbid obesity due to excess calories E66.09 ; Migraine without aura and without status migrainosus, not intractable G43.009 and Tobacco abuse Z72.0 [facility] [address] [place] [id number] [place] [address] [id number] 14 Aug, 2016 Encounter for dental examination Z01.20 [facility] [address] [place] [id number] [place] [address] 46481- 5208 02 Aug, 2016 Major depressive disorder, recurrent, moderate F33.1 ; Anxiety disorder, unspecified F41.9 and 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 [facility] [address], [place] [address]- 8884 July, [facility] [address] [place] [address] 74048- 0966 July, [facility] [address] [place] [address] 70183- 0041 July, [facility] [address] [place] [id number] [place] [address] 80875- 4460 July, Diabetes E11.9 [facility] [address] [place] [address] 14033- 6758 Jun, Major depressive disorder, recurrent, moderate F33.1 [facility] [address] [place] [address] 46145- 3757 Jun, Major depressive disorder, recurrent, moderate F33.1 ; 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 ; Generalized anxiety disorder F41.1 and Bipolar disorder, unspecified F31.9 [facility] [address] [place] [address] 04042- 8362 Jun, Diabetes E11.9 ; Migraine G43.909 ; Thrush B37.0 and Wheezing R06.2 [facility] [address] [id number] Jun, Dental examination Z01.20 [facility] [address] [place] [address] 09985- 3427 Jun, [facility] [address] [place] [address] 38213- 3604 Jun, Major depressive disorder, recurrent, moderate F33.1 ; Anxiety disorder, unspecified F41.9 and 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 [facility] [address], [place] [address]- 1900 Jun, [facility] [address] [id number] [place] [address] 53502- 0409 Jun, Wheezing R06.2 [facility] [address] [place] [id number] [place] [address] [id number] Jun, Dental caries K02.9 [facility] [address] [place] [id number] [place] [address] 44326- 8420 Jun, Major depressive disorder, recurrent, moderate F33.1 ; Anxiety disorder, unspecified F41.9 and 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 [place] [address] [id number] [place] [address] 67025- 7413 Jun, RLQ abdominal pain R10.31 ; Diabetes E11.9 ; Obesity, unspecified obesity severity, unspecified obesity type E66.9 ; Wheezing R06.2 and Abnormal urinalysis R82.90 [place] [address] 79311- 2215 May, [place] [address] 66426- 2073 May, Well woman exam Z01.419 ; Breast cancer screening Z12.39 ; Cervical cancer screening Z12.4 ; Urinary frequency R35.0 ; Edema, unspecified type R60.9 and Chronic constipation K59.09 [place] [address] [id number] [place] [address] 72244- 5039 May, Major depressive disorder, recurrent, moderate F33.1 ; Anxiety disorder, unspecified F41.9 and 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 [facility] [address] [id number] [place] [address] [id number] May, Dental examination Z01.20 [place] [address] 46628- 5521 May, [place] [address] 23787- 7299 May, [place] [address] 52412- 9752 May, Chronic constipation K59.09 [place] [address], [place] [address]- 7867 Apr, [place] [address] [id number] [place] [address] 728124- 3188 Apr, Major depressive disorder, recurrent, moderate F33.1 ; Anxiety disorder, unspecified F41.9 and 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 [place] [address] [id number] [place] [address] 21108- 5078 Apr, [place] [address] [place] [id number] [place] [address] 49752- 1020 Mar, Major depressive disorder, recurrent, moderate F33.1 [place] [address] [place] [address] 17283- 4670 Mar, Major depressive disorder, recurrent, moderate F33.1 ; Generalized anxiety disorder F41.1 and Bipolar I disorder, most recent episode depressed with anxious distress F31.30 [place] [address] [place] [address] 72164- 1766 Mar, Diabetes E11.9 ; Non morbid obesity due to excess calories E66.09 ; Breast cancer screening Z12.39 and Encounter for immunization Z23 [place] [address] [place] [address] 04440- 9613 Mar, Major depressive disorder, recurrent, moderate F33.1 ; Anxiety disorder, unspecified F41.9 and 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 [place] [address] [address]- 3707 Mar, [place] [address] [place] [id number] [place] [address] 75297- 5757 Feb, Major depressive disorder, recurrent, moderate F33.1 ; Anxiety disorder, unspecified F41.9 and 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 [place] [address] [place] [id number] [place] [address] 75832- 0417 Feb, [facility] [address] [id number] [place] [address] 20757- 4961 Feb, [facility] [address] [place] [id number] [place] [address] 90901- 5514 Jan, Major depressive disorder, recurrent, moderate F33.1 ; Generalized anxiety disorder F41.1 and Bipolar disorder, current episode depressed, severe, without psychotic features F31.4 [place] [address] [id number] [place] [address] 45100- 8895 18 Jan, 2016 Major depressive disorder, recurrent, moderate F33.1 ; Anxiety disorder, unspecified F41.9 and 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 [place] [address] [id number] [place] [address] 51503- 5131 16 Jan, 2016 Bronchitis J40 [place] [address] [id number] [place] [address] 29916- 3534 Jan, [place] [address] [place] [id number] [place] [address] 11415- 3397 Jan, [place] [address] [place] [id number] [place] [address] 02021- 9801 Jan, Elbow injury, right, initial encounter S59.901A ; Multiple contusions T14.8 and Cervical strain, acute, initial encounter S16.1XXA [place] [address] [address] [id number] [place] [address] 40081- 8167 Dec, Major depressive disorder, recurrent, moderate F33.1 ; Generalized anxiety disorder F41.1 and Bipolar disorder with depression F31.30 [place] [address] [place] [id number] [place] [address] 56070- 9509 Dec, [place] [address] [id number] [place] [address] 46203- 4868 Dec, [facility] [address] [id number] [place] [address] 62419- 7921 Dec, [facility] [id number] [address]- 2712 Dec, [facility] [address] [place] [address] 13047- 4498 Dec, Yeast infection B37.9 [facility] [address] [place] [address] 71258- 3717 Dec, Pneumonia of both lungs due to methicillin resistant Staphylococcus aureus (MRSA), unspecified part of lung J15.212 and Benzodiazepine overdose, accidental or unintentional, subsequent encounter T42.4X1D [place] [address] [id number] [place] [address] 00749- 7612 Dec, [facility] [address] [place] [address] 58801- 7659 Dec, [facility] [address] [id number] [place] [address] 82737- 4193 Dec, Knee pain, left M25.562 and Edema, unspecified type R60.9 [place] [address] [place] [address] 20340- 2539 Dec, [facility] [address] [place] [address] 94754- 0801 Dec, Anxiety disorder, unspecified F41.9 and Bipolar disorder, unspecified F31.9 [facility] [address] [place] [address] 86797- 8698 Nov, Major depressive disorder, recurrent, moderate F33.1 ; Anxiety disorder, unspecified F41.9 and 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 [facility] [address] [place] [address] 42221- 3201 Nov, [facility] [address] [place] [address] 93803- 0545 Nov, Migraine without aura and without status migrainosus, not intractable G43.009 [place] [address] [place] [phone] Nov, Migraine G43.909 [place] [address] [place] [id number] [place] [address] [phone] Nov, [place] [address] [place] [id number] [place] [address] [phone] Nov, Major depressive disorder, recurrent, moderate F33.1 ; Anxiety disorder, unspecified F41.9 and 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 [place] [address] [place] [id number] [place] [address] [phone] Oct, Chronic constipation K59.09 and Obesity, unspecified obesity severity, unspecified obesity type E66.9 [place] [address] [place] [id number] [place] [address] [place] [address] 58637- 9294 Oct, Obesity, unspecified obesity severity, unspecified obesity type E66.9 ; Chronic constipation K59.09 and Anxiety disorder, unspecified F41.9 [facility] [id number] [place] [address] 87996- 8967 Oct, [facility] [id number] [place] [address] 08885- 5482 Sep, Diabetes E11.9 ; Edema, unspecified type R60.9 ; Varicose vein of leg I83.90 and Obesity, unspecified obesity severity, unspecified obesity type E66.9 [facility] [id number] [place] [address] 59823- 0943 Sep, Edema, unspecified type R60.9 ; Diabetes E11.9 and Knee pain , left M25.562 [facility] [id number] [place] [address] 18207- 3863 Sep, [facility] [id number] [place] [address] 74441- 7884 Sep, [facility] [address] 40223- 5402 Sep, Major depressive disorder, recurrent, moderate F33.1 ; Generalized anxiety disorder F41.1 and Bipolar disorder, unspecified F31.9 [facility] [id number] [place] [address] 71348- 3158 Aug, Chondromalacia of left knee M94.262 [facility] [id number] [place] [address] 92921- 5572 Aug, Major depressive disorder, recurrent, moderate F33.1 ; Anxiety disorder, unspecified F41.9 and 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 [facility] [id number] [place] [address] 53820- 6841 Aug, [facility] [id number] [place] [address] 39952- 8297 Aug, Osteoarthritis of left knee M17.9 [facility] [id number] [place] [address] 76847- 1453 Aug, [facility] [id number] [place] [address] 85244- 7324 July, Major depressive disorder, recurrent, moderate F33.1 ; Anxiety disorder, unspecified F41.9 and 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 [facility] [id number] [place] [address] 39609- 3289 July, [facility] [id number] [place] [address] 26269- 2949 July, Chronic constipation K59.09 [facility] [id number] [place] [address] 10887- 5541 Jun, [facility] [id number] [place] [address] 88327- 6625 Jun, [facility] [id number] [place] [address] 82121- 3565 Jun, Osteoarthritis of left knee M17.9 [facility] [id number] [place] [address] 89013- 1501 Jun, [facility] [address] 13446- 6829 Jun, Generalized anxiety disorder F41.1 ; Bipolar disorder, unspecified F31.9 and Major depressive disorder, recurrent, moderate F33.1 [facility] [address] 12360- 8548 Jun, Migraine G43.909 [facility] [address] 62925- 4336 Jun, Left knee pain M25.562 ; Chronic constipation K59.09 ; Dry mouth R68.2 ; Yeast vaginitis B37.3 and Memory loss R41.3 [facility] [address] 52661- 0528 Jun, [facility] [address] 62634- 7175 May, [facility] [address] 09731- 8345 May, [facility] [address] 74877- 2305 May, [facility] [id number] [place] [address] 14256- 8909 May, [facility] [address] 92041- 3657 May, Acute bronchitis with COPD J44.0 ; Knee pain, left M25.562 and Encounter for tobacco use cessation counseling Z71.6 [facility] [address] 87588- 5527 May, [facility] [id number] [place] [address] 39734- 5718 Apr, Diabetes E11.9 ; TMJ (sprain of temporomandibular joint) S03.4XXA ; Tobacco abuse Z72.0 ; Migraine G43.909 and Anxiety F41.9 [facility] [id number] [place] [address] 49912- 1794 Apr, Generalized anxiety disorder F41.1 and Bipolar disorder, unspecified F31.9 [facility] [id number] [place] [address] 20617- 0576 Apr, Major depressive disorder, recurrent, moderate F33.1 ; Anxiety disorder, unspecified F41.9 and 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 [facility] [id number] [place] [address] 45130- 9717 Apr, [facility] [id number] [place] [address] 20152- 1760 Mar, [facility] [address] 63310- 8026 Feb, [facility] [id number] [place] [address] 72895- 3849 14 Feb, 2015 Major depressive disorder, recurrent, moderate F33.1 ; Anxiety disorder, unspecified F41.9 and 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 [facility] [id number] [place] [address] 33844- 9708 Feb, [facility] [id number] [place] [address] 13733- 7543 Feb, Generalized anxiety disorder F41.1 and Bipolar disorder, unspecified F31.9 [facility] [id number] [place] [address] 90605- 9566 Jan, [facility] [id number] [place] [address] 46951- 4343 Jan, [facility] [id number] [place] [address] 71234- 0214 Jan, Bipolar disorder, unspecified F31.9 and Generalized anxiety disorder F41.1 [facility] [id number] [place] [address] 21273- 9268 Dec, [facility] [address] 37607- 7384 Dec, Bipolar disorder, unspecified F31.9 and Generalized anxiety disorder F41.1 [facility] [address] 42329- 7747 Dec, Generalized anxiety disorder F41.1 and Major depressive disorder, recurrent, moderate F33.1 [facility] [id number] [place] [address] 91635- 1158 Oct, Headache 784.0 ; Cough 786.2 ; Vomiting and diarrhea 787.03 and Dysuria 788.1 [facility] [address] 19677- 4843 Aug, [facility] [address] 51124- 7466 Aug, Headache 784.0 and Shortness of breath 786.05 [facility] [id number] [place] [address] 01948- 4852 Aug, [facility] [id number] [place] [address] 94282- 2722 Aug, Migraine 346.90 [facility] [id number] [place] [address] 13284- 7777 Jun, [facility] [id number] [place] [address] 07676- 8492 Jun, [facility] [id number] [place] [address] 80226- 7228 May, [facility] [id number] [place] [address] 28670- 2100 May, [facility] [id number] [place] [address] 15812- 7869 May, [facility] [place] [facility] [address] [id number] [place] [address]- 9595 May, [facility] [place] [facility] [address] [id number] [place] [address]- 6991 May, [facility] [place] [facility] [address] [id number] [place] [address]- 8844 May, [facility] [place] [facility] [address] [id number] [place] [address]- 3058 Apr, [facility] [place] [facility] [address] [id number] [place] [address]- 2426 Apr, 2014 [facility] [place] [facility] [address] [id number] [place] [address]- 8074 Apr, [facility] [place] [facility] [address] [id number] [place] [address]- 8809 Apr, [facility] [place] [facility] [address] [id number] [place] [address]- 7877 Apr, [facility] [place] [facility] [address] [id number] [place] [address]- 2276 Mar, [facility] [place] [facility] [address] [id number] [place] [address]- 7279 Mar, [facility] [place] [facility] [address] [id number] [place] [address]- 0841 Mar, [facility] [place] [facility] [address] [id number] [place] [address]- 3200 Mar, [facility] [place] [facility] [address] [id number] [place] [address]- 7616 Feb, [facility] [place] [facility] [address] [id number] [place] [address]- 0545 Feb, [facility] [place] [facility] [address] [id number] [place] [address]- 4376 Feb, [facility] [place] [facility] [address] [id number] [place] [address]- 4463 18 Feb, 2014 [facility] [place] [facility] [address] [id number] [place] [address]- 1773 16 Feb, 2014 [facility] [place] [facility] [address] [id number] [place] 1150 16 Feb, 2014 [facility] [place] [facility] [address] [id number] [place] [address]- 2096 Feb, [facility] [place] [facility] [address] [id number] [place] [address]- 5386 Feb, [facility] [place] [facility] [address] [id number] [place] [address]- 0530 Feb, [facility] [place] [facility] [address] [id number] [place] [address]- 2045 Feb, [facility] [place] [facility] [address] [id number] [place] [address]- 7359 Feb, [facility] [place] [facility] [address] [id number] [place] [address]- 2864 Feb, [facility] [place] [facility] [address] [id number] [place] [address]- 1151 Jan, [facility] [place] [facility] [address] [id number] [place] [address]- 6618 Jan, [facility] [place] [facility] [address] [id number] [place] [address]- 5070 Dec, [facility] [place] [facility] [address] [id number] [address]- 0818 Dec, [facility] [place] [facility] [address] [id number] [place] [address]- 3346 Dec, [facility] [place] [facility] [address] [id number] [place] [address]- 8768 Dec, [facility] [place] [facility] [address] [id number] [place] 8410 Dec, [facility] [place] [facility] [address] [id number] [place] [address]- 3019 Dec, [facility] [place] [facility] [address] [id number] [place] [address]- 3006 Sep, [facility] [place] [facility] [address] [id number] [place] [address]- 0046 Sep, [facility] [place] [facility] [address] [id number] [place] [address]- 5706 Sep, [facility] [place] [facility] [address] [id number] [place] [address]- 0976 Sep, [facility] [place] [facility] [address] [id number] [place] [address]- 9739 Sep, [facility] [place] [facility] [address] [id number] [place] [address]- 7989 Sep, [facility] [place] [facility] [address] [id number] [place] [address]- 8328 Sep, [facility] [place] [facility] [address] [id number] [place] [address]- 6790 Sep, [facility] [place] [facility] [address] [id number] [place] [address]- 7087 Sep, [facility] [place] [facility] [address] [id number] [place] [address]- 8517 Sep, [facility] [place] [facility] [address] [id number] [place] [address]- 1563 Aug, [facility] [place] [facility] [address] [id number] [place] [address]- 0502 Aug, [facility] [place] [facility] [address] [id number] [place] [address]- 8228 Aug, [facility] [place] [facility] [address] [id number] [place] [address]- 6856 Aug, [facility] [place] [facility] [address] [id number] [place] [address]- 8348 Aug, [facility] [place] [facility] [address] [id number] [place] [address]- 5203 Aug, [facility] [place] [facility] [address] [id number] [place] [address]- 9490 Aug, [facility] [place] [facility] [address] [id number] [place] [address]- 0221 Aug, [facility] [place] [facility] [address] [id number] [place] [address]- 4229 Aug, [facility] [place] [facility] [address] [id number] [place] [address]- 5760 Aug, [facility] [place] [facility] [address] [id number] [place] [address]- 5316 Aug, [facility] [place] [facility] [address] [id number] [place] [address]- 2443 Aug, [facility] [place] [facility] [address] [id number] [place] [address]- 7625 Aug, [facility] [place] [facility] [address] [id number] [place] [address]- 0236 July, [facility] [place] [facility] [address] [id number] [place] [address]- 0558 July, [facility] [place] [facility] [address] [id number] [place] [address]- 6110 July, [facility] [place] [facility] [address] [id number] [address]- 3581 July, [facility] [place] [facility] [address] [id number] [place] [address]- 0535 July, [facility] [place] [facility] [address] [id number] [place] [address]- 6446 July, [facility] [place] [facility] [address] [id number] [place] [address]- 3359 July, [facility] [place] [facility] [address] [id number] [place] [address]- 6883 23 Jun, 2013 [facility] [place] [facility] [address] [id number] [place] [address]- 5335 23 Jun, 2013 [facility] [place] [facility] [address] [id number] [place] [address]- 3576 18 Jun, 2013 [facility] [place] [facility] [address] [id number] [place] [address]- 8259 16 Jun, 2013 [facility] [place] [facility] [address] [id number] [place] [address]- 8613 16 Jun, 2013 [facility] [place] [facility] [address] [id number] [place] [address]- 9873 Jun, [facility] [place] [facility] [address] [id number] [place] [address]- 5683 08 Jun, 2013 [facility] [place] [facility] [address] [id number] [place] [address]- 8799 17 May, 2013 [facility] [place] [facility] [address] [id number] [place] [address]- 8113 17 May, 2013 [facility] [place] [facility] [address] [id number] [place] [address]- 3269 14 May, 2013 [facility] [place] [facility] [address] [id number] [place] [address]- 0315 14 May, 2013 [facility] [place] [facility] [address] [id number] [place] [address]- 8839 13 May, 2013 [facility] [place] [facility] [address] [id number] [place] [address]- 8701 13 May, 2013 [facility] [place] [facility] [address] [id number] [place] [address]- 4610 10 May, 2013 [facility] [place] [facility] [address] [id number] [place] [address]- 9025 10 May, 2013 [facility] [place] [facility] [address] [id number] [place] [address]- 9729 May, [facility] [place] [facility] [address] [id number] [place] [address]- 5996 Apr, [facility] [place] [facility] [address] [id number] [place] [address]- 3690 Apr, [facility] [place] [facility] [address] [id number] [place] [address]- 6299 Apr, [facility] [place] [facility] [address] [id number] [place] [address]- 7733 Apr, [facility] [place] [facility] [address] [id number] [place] [address]- 9922 Apr, [facility] [place] [facility] [address] [id number] [place] [address]- 6869 Apr, [facility] [place] [facility] [address] [id number] [place] [address]- 1783 Apr, [facility] [place] [facility] [address] [id number] [place] [address]- 2912 Apr, [facility] [place] [facility] [address] [id number] [place] [address]- 9303 Apr, [facility] [place] [facility] [address] [id number] [place] [address]- 2767 Apr, [facility] [place] [facility] [address] [id number] [place] [address]- 6172 Mar, [facility] [place] [facility] [address] [id number] [place] [address]- 0889 Mar, [facility] [place] [facility] [address] [id number] [place] [address]- 7272 Mar, [facility] [place] [facility] [address] [id number] [place] [address]- 8292 Mar, [facility] [place] [facility] [address] [facility] [id number] [place] [address]- 4175 Mar, [facility] [place] [facility] [address] [id number] [place] [address]- 9160 Mar, [facility] [address] [id number] [place] [address]- 2163 Mar, [facility] [place] [facility] [address] [id number] [place] [address]- 7075 Mar, [facility] [address] [id number] [place] [address]- 2609 Feb, [facility] [place] [facility] [address] [id number] [place] [address]- 4430 Feb, [facility] [address] [id number] [place] [address]- 5071 Jan, [facility] [address] [id number] [place] [address]- 4359 Jan, [facility] [address] [id number] [place] [address]- 8357 Jan, [facility] [address] [id number] [place] [address]- 6807 15 Jan, 2013 [facility] [place] [facility] [address] [facility] [id number] [place] [address]- 7094 Jan, [facility] [address] [facility] [id number] [place] [address]- 2115 Jan, [facility] [place] [facility] [address] [id number] [place] [address]- 3410 Jan, [facility] [place] [facility] [address] [id number] [place] [address]- 3959 05 Jan, 2013 [facility] [place] [facility] [address] [id number] [place] [address]- 5945 13 Dec, 2012 [facility] [place] [facility] [address] [id number] [place] [address]- 3557 10 Dec, 2012 [facility] [place] [facility] [address] [id number] [place] [address]- 3886 Dec, [facility] [place] [facility] [address] [id number] [place] [address]- 7243 20 Nov, 2012 [facility] [place] [facility] [address] [id number] [place] [address]- 5556 Nov, [facility] [place] [facility] [address] [id number] [place] [address]- 6697 Nov, [facility] [place] [facility] [address] [id number] [place] [address]- 5152 Nov, [facility] [place] [facility] [address] [id number] [place] [address]- 4441 Nov, [facility] [place] [facility] [address] [id number] [place] [address]- 2258 Nov, [facility] [place] [facility] [address] [id number] [place] [address]- 8486 Oct, [facility] [place] [facility] [address] [id number] [place] [address]- 1599 Oct, [facility] [place] [facility] [address] [id number] [place] [address]- 3198 Sep, [facility] [place] [facility] [address] [id number] [place] [address]- 5504 Sep, [facility] [place] [facility] [address] [id number] [place] [address]- 3947 Sep, [facility] [place] [facility] [address] [id number], [place] [address]- 0571 Sep, [facility] [place] [facility] [address] [id number] [place] [address]- 8000 Sep, [facility] [place] [facility] [address] [id number] [place] [address]- 0407 Sep, [facility] [place] [facility] [address] [id number] [place] [address]- 8125 Sep, [facility] [place] [facility] [address] [id number] [place] [address]- 4600 14 Aug, 2012 [facility] [address] [id number] [place] [address]- 9945 14 Aug, 2012 [facility] [place] [facility] [address] [id number] [place] [address]- 1720 13 Aug, 2012 [facility] [address] [id number] [place] [address]- 3633 12 Aug, 2012 [facility] [place] [facility] [address] [id number] [place] [address]- 5224 11 Aug, 2012 [facility] [address] [id number] [place] [address]- 0426 Aug, [facility] [address] [id number] [place] [address]- 8528 July, [facility] [address] [id number] [place] [address]- 4235 July, [facility] [address] [id number] [place] [address] July, [facility] [address] [id number] [place] [address] July, [facility] [place] [facility] [address] [id number] [place] [address] July, [facility] [address] [id number] [place] [address] July, [facility] [place] [facility] [address] [id number] [place] [address] Jun, [facility] [place] [facility] [address] [id number] [place] [address] 22 Jun, 2012 [facility] [place] [facility] [address] [id number] [place] [address] 15 Jun, 2012 [facility] [place] [facility] [address] [id number] [place] [address] 12 Jun, 2012 [facility] [place] [facility] [address] [id number] [place] [address] Jun, [facility] [place] [facility] [address] [id number] [place] [address] Jun, [facility] [place] [facility] [address] [id number] [place] [address] Jun, [facility] [place] [facility] [address] [id number] [place] [address] May, [facility] [place] [facility] [address] [id number] [place] [address] May, [facility] [place] [facility] [address] [id number] [place] [address] 26 Apr, 2012 [facility] [place] [facility] [address] [id number] [place] [address] Apr, [facility] [place] [facility] [address] [id number] [place] [address] Apr, [facility] [place] [facility] [address] [id number] [place] [address] Apr, [facility] [place] [facility] [address] [facility] [id number] [place] [address] Apr, [facility] [place] [facility] [address] [facility] [id number] [place] [address] 08 Apr, 2012 [facility] [place] [facility] [address] [id number] [place] [address] 07 Apr, 2012 [facility] [place] [facility] [address] [id number] [place] [address] Apr, [facility] [place] [facility] [address] [id number] [place] [address] Apr, [facility] [place] [facility] [address] [facility] [id number] [place] [address] Apr, [facility] [place] [facility] [address] [id number] [place] [address] 03 Apr, 2012 [facility] [address] [id number] [place] [address] Mar, [facility] [address] [id number] [place] [address] Mar, [facility] [address] [id number] [place] [address] Mar, [facility] [address] [id number] [place] [address] Mar, [facility] [address] [id number] [place] [address] Mar, [facility] [address] [id number] [place] [address] Mar, [facility] [address] [id number] [place] [address] Mar, [facility] [address] [id number] [place] [address] Mar, [facility] [address] [id number] [place] [address] Mar, [facility] [address] [id number] [place] [address] Mar, [facility] [address] [id number] [place] [address] Mar, [facility] [address] [id number] [place] [address] Mar, [facility] [address] [id number] [place] [address] Mar, [facility] [address] [id number] [place] [address] Feb, [facility] [address] [id number] [place] [address] Feb, [facility] [place] [facility] [address] [id number] [place] [address] Feb, [facility] [place] [facility] [address] [id number] [place] [address] Feb, [facility] [place] [facility] [address] [id number] [place] [address] Feb, [facility] [place] [facility] [address] [id number] [place] [address]- [address] Feb, [facility] [place] [facility] [address] [id number] [place] [address]- [address] Feb, [facility] [place] [facility] [address] [id number] [place] [address] Feb, [facility] [place] [facility] [address] [id number] [place] [address] 47[address] Feb, [facility] [place] [facility] [address] [id number] [place] [address]- [address] Feb, [facility] [place] [facility] [address] [id number] [place] [address]- [address] Feb, [facility] [place] [facility] [address] [id number] [place] [address]- [address] Feb, [facility] [place] [facility] [address] [id number] [place] [address]- 12[address] Feb, [facility] [place] [facility] [address] [id number] [place] [address]- 9[address] Feb, [facility] [place] [facility] [address] [id number] [place] [address]- 40[address] Feb, [facility] [place] [facility] [address] [id number] [place] [address]- [address] Jan, [facility] [place] [facility] [address] [id number] [place] [address]- [address] Jan, [facility] [place] [facility] [address] [id number] [place] [address]- [address] Jan, [facility] [place] [facility] [address] [id number] [place] [address] Jan, [facility] [place] [facility] [address] [id number] [place] [address]- [address] Dec, [facility] [place] [facility] [address] [id number] [place] [address] Dec, [facility] [place] [facility] [address] [id number] [place] [address] Dec, [facility] [place] [facility] [address] [id number] [place] [address] Dec, [facility] [place] [facility] [address] [id number] [place] [address] Dec, [facility] [place] [facility] [address] [id number] [place] [address] Dec, [facility] [place] [facility] [address] [id number] [address] Dec, [facility] [place] [facility] [address] [id number], [place] [address] Dec, [facility] [place] [facility] [address] [id number][place] [address] Dec, [facility] [place] [facility] [address] [id number][place] [address] Dec, [facility] [place] [facility] [address] [id number], [place] [address] Dec, [facility] [place] [facility] [address] [id number], [place] [address] Nov, [facility] [place] [facility] [address] [id number][place] [address] 24 Nov, 2011 [facility] [place] [facility] [address] [id number][place] [address] 20 Nov, 2011 [facility] [place] [facility] [address] [id number] [place] [address] 2546 19 Sep, 2011 [facility] [place] [facility] [address] [id number] [place] [address] 2546 17 Sep, 2011 [facility] [place] [facility] [address] [id number] [place] [address] 2546 16 Sep, 2011 [facility] [place] [facility] [address] [id number] [place] [address] 2546 14 Sep, 2011 [facility] [place] [facility] [address] [id number] [place] [address] 2546 13 Sep, 2011 [facility] [place] [facility] [address] [id number] [place] [address] 7766 12 Sep, 2011 [facility] [place] [facility] [address] [id number] [place] [address]46 07 Sep, 2011 [facility] [place] [facility] [address] [id number] [place] [address] 2546 06 Sep, 2011 [facility] [place] [facility] [address] [id number] [place] [address]- [address]44 06 Sep, 2011 [facility] [place] [facility] [address] [id number] [place] [address] 2543 05 Sep, 2011 [facility] [place] [facility] [address] [id number] [place] [address]- [address]44 29 Oct, 2011 [facility] [place] [facility] [address] [id number] [place] [address] 2546 29 Oct, 2011 [facility] [place] [facility] [address] [id number] [place] [address] 2540 28 Oct, 2011 [facility] [place] [facility] [address] [id number] [place] [address] 2545 28 Oct, 2011 [facility] [place] [facility] [address] [id number] [place] [address]- 2546 23 Oct, 2011 [facility] [place] [facility] [address] [id number] [place] [address] 2543 Oct, [facility] [place] [facility] [address] [id number] [place] [address] 388[address] Oct, [facility] [place] [facility] [address] [id number] [place] [address] 4217 Oct, [facility] [place] [facility] [address] [id number] [place] [address] 2401 Oct, [facility] [place] [facility] [address] [id number] [place] [address] 6937 Oct, [facility] [place] [facility] [address] [id number] [place] [address] 7427 Oct, [facility] [place] [facility] [address] [id number] [place] [address] Sep, [facility] [place] [facility] [address] [id number] [place] [address] 76[address] Sep, [facility] [place] [facility] [address] [id number] [place] [address]00 Sep, [facility] [place] [facility] [address] [id number] [place] [address]- [address] Sep, [facility] [place] [facility] [address] [id number] [place] [address]- [address]235 Sep, [facility] [place] [facility] [address] [id number] [place] [address] Sep, [facility] [place] [facility] [address] [id number] [place] [address] 9310 Aug, [facility] [place] [facility] [address] [id number] [place] [address] 15[address] July, [facility] [place] [facility] [address] [id number] [place] [address]- 3360 July, [facility] [place] [facility] [address] [id number] [place] [address]- 6284 Jun, [facility] [place] [facility] [address] [id number] [place] [address]- 6324 Jun, [facility] [place] [facility] [address] [id number] [place] [address]- 3632 Jun, [facility] [place] [facility] [address] [id number] [place] [address]- 8036 Jun, [facility] [place] [facility] [address] [id number] [place] [address]- 9876 Jun, [facility] [place] [facility] [address] [id number] [place] [address]- 1522 Jun, [facility] [place] [facility] [address] [id number] [place] [address] 0439 Jun, [facility] [place] [facility] [address] [id number] [place] [address]- 9523 Jun, [facility] [place] [facility] [address] [facility] [id number] [place] [address]- 8074 Jun, [facility] [place] [facility] [address] [id number] [place] [address]- 8468 Jun, [facility] [place] [facility] [address] [id number] [place] [address]- 9719 Jun, [facility] [place] [facility] [address] [facility] [id number] [place] [address]- 3966 May, [facility] [place] [facility] [address] [id number] [place] [address]- 6698 16 May, 2011 [facility] [place] [facility] [address] [id number] [place] [address]- 2572 14 May, 2011 [facility] [place] [facility] [address] [id number] [place] [address]- 8320 06 May, 2011 [facility] [place] [facility] [address] [id number] [place] [address]- 1701 Apr, [facility] [place] [facility] [address] [id number] [place] [address]- 0615 Apr, [facility] [place] [facility] [address] [id number] [place] [address]- 5023 Apr, [facility] [place] [facility] [address] [id number] [place] [address] Apr, [facility] [place] [facility] [address] [id number] [place] [address]- 7986 Apr, [facility] [place] [facility] [address] [id number] [place] [address]- 6176 Apr, [facility] [place] [facility] [address] [id number] [place] [address]- 2721 Apr, [facility] [place] [facility] [address] [id number] [place] [address]- 8461 Apr, [facility] [place] [facility] [address] [id number] [place] [address]- 6427 Mar, [facility] [place] [facility] [address] [id number] [place] [address]- 8998 Mar, [facility] [place] [facility] [address] [id number] [place] [address]- 7040 Mar, [facility] [place] [facility] [address] [id number] [place] [address]- 7627 Mar, [facility] [place] [facility] [address] [id number] [place] [address]- 5985 Mar, [facility] [place] [facility] [address] [id number] [place] [address]- 5144 Mar, [facility] [place] [facility] [address] [id number] [place] [address]- 6935 Mar, [facility] [place] [facility] [address] [id number] [place] [address]- 0000 Mar, [facility] [place] [facility] [address] [id number] [place] [address]- 8522 Mar, [facility] [place] [facility] [address] [id number], [place] [address]- [address]99 Mar, [facility] [address] [id number] [place] [address]- 3241 Mar, [facility] [place] [facility] [address] [id number] [place] [address]- 6385 Mar, [facility] [place] [facility] [address] [id number] [place] [address]- 1914 Mar, [facility] [place] [facility] [address] [id number] [place] [address]- 1725 Mar, [facility] [place] [facility] [address] [id number] [place] [address]- 7271 Mar, [facility] [place] [facility] [address] [id number] [place] [address]- 9453 Mar, [facility] [address] [id number] [place] [address]- 7746 Feb, [facility] [place] [facility] [address] [id number] [place] [address]- 7293 Feb, [facility] [place] [facility] [address] [id number] [place] [address]- 9511 Feb, [facility] [place] [facility] [address] [id number] [place] [address]- 4262 Jan, [facility] [place] [facility] [address] [id number], [place] [address]- 9305 Jan, [facility] [place] [facility] [address] [id number][place] [address]- 4701 Jan, [facility] [place] [facility] [address] [id number], [place] [address]- 9170 Dec, [facility] [place] [facility] [address] [id number] [place] [address]- 8617 Dec, [facility] [place] [facility] [address] [id number] [place] [address]- 8545 16 Nov, 2010 [facility] [place] [facility] [address] [facility] [id number] [place] [address]- 8[address] Oct, [facility] [address] [facility] [id number], [place] [address] 8157 Oct, [facility] [address] [facility] [id number], [place] [address]- 4579 Oct, [facility] [address] [facility] [id number][place] [address]- 8809 Sep, [facility] [address] [facility] [id number][place] [address]- 7156 Apr, [facility] [address] [id number], [place] [address]- 1079 Feb, [facility] [address] [facility] [id number], [place] [address]- 8384 Jan, IMMUNIZATIONS No Known Immunizations SOCIAL HISTORY Never Assessed REASON FOR VISIT EMR-[facility] PLAN OF CARE VITAL SIGNS MEDICATIONS No [...] 2/2 [place] OD, pneumonia MRSA, [facility], Hypokalemia-- [facility] 12/20/2015 Hospitalization History COPD exacerbation, Asthma-[facility] 09/21/16 Hospitalization History COPD-[facility] 12/30/2016 [facility]ization History [facility] [place] [facility]-last around 2006 or so. Hospitalization History [facility] for COPD x2 Mar 2017 Hospitalization History Upper GI bleed at apr 2017 Hospitalization History [facility]- COPD Exacerbation, diarrhea 05/23/2017 Hospitalization History COPD exacerbation-[facility] 06/13/17 Hospitalization History [facility] 09/09/2017 Hospitalization History COPD-UTI--[facility] 11/2017
--- OUTSIDE RECORDS SUMMARY | 2018-06-30 11:27 | XMS REPORT ---
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 Active Problem TMJ (sprain of temporomandibular joint) S03.4XXA Active 34930638 Problem Migraine G43.909 Active 69330193 Problem Memory loss R41.3 Active 20391808 Problem Chronic constipation K59.09 Active 455331537 Problem Bipolar disorder with depression F31.30 Active 13398349 Problem Bipolar disorder, unspecified F31.9 Active 51842480 Problem Migraine without aura and without status migrainosus, not intractable G43.009 Active 157970115 Problem Chronic bronchitis, unspecified chronic bronchitis type J42 Active 12094498 Problem Methamphetamine use disorder, moderate, 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 Active 95861403 Problem Acute on chronic systolic congestive heart failure I50.23 Active 609784091 Problem Other emphysema J43.8 Active 34671999 Problem COPD exacerbation J44.1 Active 040256842 Problem Generalized anxiety disorder F41.1 Active 99902760 Problem Examination of eyes and vision V72.0 Active 585115121 Problem Diabetes E11.9 Active 369016361 Problem Intractable cyclical vomiting with nausea G43.A1 Active 54367695 Problem Anxiety F41.9 Active 33193851 Problem Chronic obstructive pulmonary disease, unspecified COPD type J44.9 Active 85463686 ALLERGIES No Information ENCOUNTERS Encounter Location Date Diagnosis [facility] [address], [place] [address] May, Chronic obstructive pulmonary disease with acute exacerbation J44.1 and Tobacco abuse Z72.0 [facility] [address], [place] [address] May, Chronic obstructive pulmonary disease with acute exacerbation J44.1 [facility] [address], [place] [address] Apr, [facility] [id number] [place] [address] 41824- 6416 Apr, [facility] [id number] [place] [address] 56824- 9742 Feb, Diabetes E11.9 ; Chronic obstructive pulmonary disease with (acute) exacerbation J44.1 and Encounter for immunization Z23 [facility] [id number] [place] [address] 79635- 0589 Jan, COPD exacerbation J44.1 [facility] [id number] [place] [address] 05485- 2753 Jan, Dental abscess K04.7 [facility] [id number] [place] [address] 59194- 7235 Jan, COPD exacerbation J44.1 and Acute on chronic systolic congestive heart failure I50.23 [facility] [id number] [place] [address] 68763- 3802 Dec, [facility] [id number] [place] [address] 67353- 5578 Dec, [facility] [id number] [place] [address] 39152- 9598 Nov, [facility] [id number] [place] [address] 28904- 9002 Nov, COPD with exacerbation J44.1 and Urinary tract infection without hematuria, site unspecified N39.0 [facility] [id number] [place] [address] 56158- 0435 Nov, Chronic obstructive pulmonary disease, unspecified COPD type J44.9 [facility] [id number] [place] [address] 97295- 7833 Oct, [facility] [id number] [place] [address] 05971- 4914 Oct, [facility] [address], [place] [address]- 4417 Oct, [facility] [address], [place] [address]- 7036 Oct, [facility] [address], [place] [address]- 4669 Oct, Thrush B37.0 [facility] [id number] [place] [address] 20287- 2546 Sep, COPD with exacerbation J44.1 and Anxiety F41.9 [facility] [address], [place] [address] 8618 Sep, [facility] [address], [place] [address]- 1046 Sep, [facility] [address], [place] [address]- 6675 Sep, [facility] [address], [place] [address]- 9490 Sep, Acute congestive heart failure, unspecified heart failure type I50.9 and Anxiety disorder, unspecified F41.9 [facility] [address], [place] [address]- 3694 Sep, Heart failure, unspecified HF chronicity, unspecified heart failure type I50.9 [facility] [address], [place] [address]- 1475 Sep, [facility] [address], [place] [address]- 9426 Aug, Chronic obstructive pulmonary disease with acute exacerbation J44.1 [facility] [address], [place] [address]- 1283 Aug, [facility] [address], [place] [address]- 7604 Aug, [facility] [address], [place] [address]- 4550 July, [facility] [id number] [place] [address] 04495- 3704 July, [facility] [id number] [place] [address] 16405- 2294 July, Diabetes E11.9 and Chronic obstructive pulmonary disease with acute exacerbation J44.1 [facility] [id number] [place] [address] 08726- 5806 Jun, Chronic obstructive pulmonary disease with acute exacerbation J44.1 ; Diabetes E11.9 and Tobacco abuse Z72.0 [facility] [id number] [place] [address] 27406- 3286 Jun, [facility] [id number] [place] [address] 79069- 9248 Jun, [facility] [id number] [place] [address] 11697- 0827 May, [facility] [id number] [place] [address] 29662- 3682 May, [facility] [address], [place] [address] May, [facility] [address], [place] [address]- 6419 16 May, 2017 [facility] [id number] [place] [address] 96616- 7945 15 May, 2017 [facility] [id number] [place] [address] 70765- 7056 14 May, 2017 Diarrhea, unspecified type R19.7 and Intractable cyclical vomiting with nausea G43.A1 [facility] [address], [place] [address]- 9004 May, [facility] [id number] [place] [address] 99667- 3618 May, [facility] [id number] [place] [address] 99043- 2004 Apr, COPD exacerbation J44.1 ; Esophageal candidiasis B37.81 ; Other acute gastritis with hemorrhage K29.01 and Acute posthemorrhagic anemia D62 [facility] [id number] [place] [address] 23722- 2129 Apr, Viral illness B34.9 and COPD exacerbation J44.1 [facility] [id number] [place] [address] 74102 -8001 Apr, Shortness of breath R06.02 and Pneumonia of both lower lobes due to infectious organism J18.9 [facility] [id number] [place] [address] 37099 -5144 Mar, COPD with acute exacerbation J44.1 [facility] [address] 81705- 7111 Mar, Chronic obstructive pulmonary disease with acute exacerbation J44.1 and Diabetes E11.9 [facility] [id number] [place] [address] 71646- 8203 Mar, [facility] [id number] [place] [address] 04796- 7698 Mar, [facility] [id number] [place] [address] 65720 -4116 Mar, COPD exacerbation J44.1 [facility] [id number] [place] [address] 51323- 3557 Mar, [facility] [id number] [place] [address] 32192- 0785 Mar, Migraine G43.909 ; Hypokalemia E87.6 and Type 2 diabetes mellitus without complications E11.9 [facility] [id number] [place] [address] 09254- 5710 Feb, [facility] [id number] [place] [address] 40879- 0672 Feb, [facility] [id number] [place] [address] 94542- 4064 Feb, Methamphetamine use disorder, moderate, 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 ; Major depressive disorder, recurrent, moderate F33.1 ; Anxiety disorder, unspecified F41.9 and Tobacco abuse Z72.0 [facility] [id number] [place] [address] 90434- 7724 Jan, Major depressive disorder, recurrent, moderate F33.1 [facility] [id number] [place] [address] 25923- 0919 Jan, [facility] [id number] [place] [address] 86828- 5546 Jan, [facility] [id number] [place] [address] 84099- 4395 Jan, Major depressive disorder, recurrent, moderate F33.1 [facility] [id number] [place] [address] 46850- 2577 Jan, Major depressive disorder, recurrent, moderate F33.1 ; Anxiety disorder, unspecified F41.9 ; Methamphetamine use disorder, moderate, 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 and Tobacco abuse Z72.0 [facility] [id number] [place] [address] 77468- 5863 Jan, [facility] [id number] [place] [address] 53487- 3956 Jan, Chronic obstructive pulmonary disease with acute exacerbation J44.1 and Diabetes E11.9 [facility] [id number] [place] [address] 56563- 4085 Jan, [facility] [id number] [place] [address] 88521- 7750 Jan, [facility] [id number] [place] [address] 24387- 4418 24 Oct, 2017 Acute respiratory failure with hypoxia J96.01 ; Chronic bronchitis, unspecified chronic bronchitis type J42 and Tobacco use Z72.0 [facility] [id number] [place] [address] 75912- 5091 Dec, [facility] [id number] [place] [address] [id number] Nov, Dental caries K02.9 and Dental examination Z01.20 [facility] [id number] [place] [address] 71497- 8618 Nov, Major depressive disorder, recurrent, moderate F33.1 ; Anxiety disorder, unspecified F41.9 and 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 [facility] [id number] [place] [address] [id number] Oct, Dental examination Z01.20 [facility] [id number] [place] [address] 63983- 6208 Oct, [facility] [id number] [place] [address] 20766- 0553 Oct, Diabetes E11.9 and Thrush B37.0 [facility] [id number] [place] [address] 65990- 8392 Oct, [facility] [id number] [place] [address] 48632- 2895 Oct, [facility] [id number] [place] [address] 36116- 4654 Oct, [facility] [id number] [place] [address] 11544- 3940 Sep, Major depressive disorder, recurrent, moderate F33.1 ; Anxiety disorder, unspecified F41.9 and Bipolar disorder, unspecified F31.9 [facility] [id number] [place] [address] 48513- 9281 Sep, Acute exacerbation of chronic obstructive pulmonary disease (COPD) J44.1 and Migraine G43.909 [facility] [id number], [place] [address]- 4776 Sep, [facility] [id number] [id number] Sep, [facility] [address], [place] [address]- 0139 Sep, Acute exacerbation of chronic obstructive pulmonary disease (COPD) J44.1 [facility] [address], [place] [address] -4937 Sep, Acute exacerbation of chronic obstructive pulmonary disease (COPD) J44.1 [facility] [address], [place] [address]- 6109 Aug, [facility] [address], [place] [address]- 0776 Aug, Major depressive disorder, recurrent, moderate F33.1 ; Anxiety disorder, unspecified F41.9 and 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 [facility] [address], [place] [address]- 5676 Aug, Wheezing R06.2 ; Non morbid obesity due to excess calories E66.09 ; Migraine without aura and without status migrainosus, not intractable G43.009 and Tobacco abuse Z72.0 [facility] [id number] [id number] 14 Aug, 2016 Encounter for dental examination Z01.20 [facility] [address], [place] [address]- 3248 02 Aug, 2016 Major depressive disorder, recurrent, moderate F33.1 ; Anxiety disorder, unspecified F41.9 and Other stimulant dependence with unspecified stimulant-induced disorder 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 [facility] [address], [place] [address]- 6676 July, [facility] [address], [place] [address]- 6181 July, [facility] [id number] [address]- 4030 July, [facility] [id number] [place] [address] 65993- 8347 July, Diabetes E11.9 [facility] [id number] [place] [address] 39909- 9268 Jun, Major depressive disorder, recurrent, moderate F33.1 [facility] [id number] [place] [address] 01960- 6521 Jun, Major depressive disorder, recurrent, moderate F33.1 ; 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 ; Generalized anxiety disorder F41.1 and Bipolar disorder, unspecified F31.9 [facility] [id number] [place] [address] 25140- 1763 Jun, Diabetes E11.9 ; Migraine G43.909 ; Thrush B37.0 and Wheezing R06.2 [facility] [address] [id number] Jun, Dental examination Z01.20 [facility] [id number] [place] [address] 99880- 2851 Jun, [facility] [id number] [place] [address] 81610- 9923 Jun, Major depressive disorder, recurrent, moderate F33.1 ; Anxiety disorder, unspecified F41.9 and 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 [facility] [id number] [place] [address] 17624- 3680 Jun, [facility] [id number] [place] [address] 32291- 9781 Jun, Wheezing R06.2 [facility] [address] [id number] Jun, Dental caries K02.9 [facility] [id number] [place] [address] 31423- 7358 Jun, Major depressive disorder, recurrent, moderate F33.1 ; Anxiety disorder, unspecified F41.9 and 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 [facility] [id number] [place] [address] 47624- 4563 Jun, RLQ abdominal pain R10.31 ; Diabetes E11.9 ; Obesity, unspecified obesity severity, unspecified obesity type E66.9 ; Wheezing R06.2 and Abnormal urinalysis R82.90 [facility] [address] 64491- 0659 May, [facility] [address] 81958- 9190 May, Well woman exam Z01.419 ; Breast cancer screening Z12.39 ; Cervical cancer screening Z12.4 ; Urinary frequency R35.0 ; Edema, unspecified type R60.9 and Chronic constipation K59.09 [facility] [address] 13379- 1591 May, Major depressive disorder, recurrent, moderate F33.1 ; Anxiety disorder, unspecified F41.9 and 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 [facility] [id number] [place] [address] [id number] May, Dental examination Z01.20 [facility] [id number] [place] [address] 97624- 4765 May, [facility] [address] 18037- 0395 May, [facility] [address] 09147- 0733 May, Chronic constipation K59.09 [facility] [id number] [place] [address] 43003- 3758 Apr, [facility] [id number] [place] [address] 23938- 9234 Apr, Major depressive disorder, recurrent, moderate F33.1 ; Anxiety disorder, unspecified F41.9 and 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 [facility] [id number] [place] [address] 17679- 2673 Apr, [facility] [id number] [place] [address] 39209- 9875 Mar, Major depressive disorder, recurrent, moderate F33.1 [facility] [id number] [place] [address] 73578- 3874 Mar, Major depressive disorder, recurrent, moderate F33.1 ; Generalized anxiety disorder F41.1 and Bipolar I disorder, most recent episode depressed with anxious distress F31.30 [facility] [id number] [place] [address] 10009- 0747 Mar, Diabetes E11.9 ; Non morbid obesity due to excess calories E66.09 ; Breast cancer screening Z12.39 and Encounter for immunization Z23 [facility] [id number] [place] [address] 65625- 7636 Mar, Major depressive disorder, recurrent, moderate F33.1 ; Anxiety disorder, unspecified F41.9 and 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 [facility] [address] [place] [address] 36565- 1194 Mar, [facility] [id number] [place] [address] 78276- 1698 Feb, Major depressive disorder, recurrent, moderate F33.1 ; Anxiety disorder, unspecified F41.9 and 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 [facility] [id number] [place] [address] 86327- 3708 Feb, [facility] [id number] [place] [address] 93974- 8203 Feb, [facility] [id number] [place] [address] 87790- 1156 Jan, Major depressive disorder, recurrent, moderate F33.1 ; Generalized anxiety disorder F41.1 and Bipolar disorder, current episode depressed, severe, without psychotic features F31.4 [facility] [id number] [place] [address] 54332- 8538 Jan, Major depressive disorder, recurrent, moderate F33.1 ; Anxiety disorder, unspecified F41.9 and 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 [facility] [id number] [place] [address] 97340- 5995 Jan, Bronchitis J40 [facility] [address] 14246- 9544 Jan, [facility] [id number] [place] [address] 46628- 7459 Jan, [facility] [id number] [place] [address] 64013- 3811 Jan, Elbow injury, right, initial encounter S59.901A ; Multiple contusions T14.8 and Cervical strain, acute, initial encounter S16.1XXA [facility] [id number] [place] [address] 95048- 4411 Dec, Major depressive disorder, recurrent, moderate F33.1 ; Generalized anxiety disorder F41.1 and Bipolar disorder with depression F31.30 [facility] [id number] [place] [address] 85499- 1067 Dec, [facility] [id number] [place] [address] 36062- 8224 Dec, [facility] [id number] [place] [address] 92017- 0477 Dec, [facility] [id number] [place] [address] 60291- 7428 Dec, [facility] [id number] [place] [address] 22845- 2607 Dec, Yeast infection B37.9 [place] [facility] [id number] [address]- 0348 Dec, Pneumonia of both lungs due to methicillin resistant Staphylococcus aureus (MRSA), unspecified part of lung J15.212 and Benzodiazepine overdose, accidental or unintentional, subsequent encounter T42.4X1D [facility] [address], [place] [address]- 5665 Dec, [facility] [id number] [place] [address] 47174- 3189 Dec, [facility] [id number] [place] [address] 87164- 9623 Dec, Knee pain, left M25.562 and Edema, unspecified type R60.9 [facility] [id number] [place] [address] 38114- 9915 Dec, [facility] [id number] [place] [address] 69671- 5669 Dec, Anxiety disorder, unspecified F41.9 and Bipolar disorder, unspecified F31.9 [facility] [id number] [place] [address] 52777- 8561 Nov, Major depressive disorder, recurrent, moderate F33.1 ; Anxiety disorder, unspecified F41.9 and 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 [facility] [address], [place] [address]- 5673 Nov, [facility] [address] [place] [address] 83411- 2085 Nov, Migraine without aura and without status migrainosus, not intractable G43.009 [facility] [id number] [place] [address] 31169- 4005 Nov, Migraine G43.909 [facility] [id number] [place] [address] 31076- 7268 Nov, [facility] [place] [address] [place] [address]- 3489 Nov, Major depressive disorder, recurrent, moderate F33.1 ; Anxiety disorder, unspecified F41.9 and 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 [facility] [id number] [place] [address] 44078- 2083 Oct, Chronic constipation K59.09 and Obesity, unspecified obesity severity, unspecified obesity type E66.9 [facility] [id number] [place] [address] 17365- 0374 Oct, Obesity, unspecified obesity severity, unspecified obesity type E66.9 ; Chronic constipation K59.09 and Anxiety disorder, unspecified F41.9 [place] [address] [id number] [place] [address] [phone] [id number] Oct, [place] [address] [id number] [place] [address] [id number] Sep, Diabetes E11.9 ; Edema, unspecified type R60.9 ; Varicose vein of leg I83.90 and Obesity, unspecified obesity severity, unspecified obesity type E66.9 [place] [address] [place] [id number] [place] [address] [id number] 6582 Sep, Edema, unspecified type R60.9 ; Diabetes E11.9 and Knee pain , left M25.562 [place] [address] [place] [id number] [place] [address] [phone] Sep, [place] [address] [place] [id number] [place] [address] [id number] Sep, [place] [address] [place] [id number] [place] [address] [id number] [id number] Sep, Major depressive disorder, recurrent, moderate F33.1 ; Generalized anxiety disorder F41.1 and Bipolar disorder, unspecified F31.9 [facility] [id number] [place] [address] 68208- 2417 Aug, Chondromalacia of left knee M94.262 [facility] [id number] [place] [address] 31288- 6536 24 Aug, 2015 Major depressive disorder, recurrent, moderate F33.1 ; Anxiety disorder, unspecified F41.9 and 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 [facility] [id number] [place] [address] 29103- 2036 Aug, [facility] [id number] [place] [address] 17186- 5851 Aug, Osteoarthritis of left knee M17.9 [facility] [id number] [place] [address] 06644- 4662 Aug, [facility] [id number] [place] [address] 81967- 4105 July, Major depressive disorder, recurrent, moderate F33.1 ; Anxiety disorder, unspecified F41.9 and 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 [facility] [id number] [place] [address] 71175- 5719 July, [facility] [id number] [place] [address] 86231- 1767 July, Chronic constipation K59.09 [facility] [id number] [place] [address] 02275- 7728 Jun, [facility] [id number] [place] [address] 69028- 5809 15 Jun, 2015 [facility] [id number] [place] [address] 18211- 4253 14 Jun, 2015 Osteoarthritis of left knee M17.9 [facility] [id number] [place] [address] 76634- 1087 Jun, [facility] [id number] [place] [address] 87408- 2935 Jun, Generalized anxiety disorder F41.1 ; Bipolar disorder, unspecified F31.9 and Major depressive disorder, recurrent, moderate F33.1 [facility] [address] 33943- 0847 Jun, Migraine G43.909 [facility] [address] 66298- 1575 Jun, Left knee pain M25.562 ; Chronic constipation K59.09 ; Dry mouth R68.2 ; Yeast vaginitis B37.3 and Memory loss R41.3 [facility] [address] 32296- 2194 Jun, [facility] [address] 55716- 2621 May, [facility] [address] 37080- 2270 May, [facility] [address] 93046- 2324 May, [facility] [address] 30972- 6457 May, [facility] [address] 50068- 7024 May, Acute bronchitis with COPD J44.0 ; Knee pain, left M25.562 and Encounter for tobacco use cessation counseling Z71.6 [facility] [address] 53693- 5795 May, [facility] [address] 09236- 5516 Apr, Diabetes E11.9 ; TMJ (sprain of temporomandibular joint) S03.4XXA ; Tobacco abuse Z72.0 ; Migraine G43.909 and Anxiety F41.9 [facility] [id number] [place] [address] 73690- 8372 Apr, Generalized anxiety disorder F41.1 and Bipolar disorder, unspecified F31.9 [facility] [address] [address]- 2222 24 Apr, 2015 Major depressive disorder, recurrent, moderate F33.1 ; Anxiety disorder, unspecified F41.9 and 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 [facility] [address] [address]- 9916 Apr, [facility] [id number] [place] [address] 68857- 5351 Mar, [facility] [id number] [place] [address] 65232- 3046 Feb, [facility] [id number] [place] [address] 18358- 7978 Feb, Major depressive disorder, recurrent, moderate F33.1 ; Anxiety disorder, unspecified F41.9 and 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 [facility] [id number] [place] [address] 27748- 2026 Feb, [facility] [id number] [place] [address] 82661- 1925 Feb, Generalized anxiety disorder F41.1 and Bipolar disorder, unspecified F31.9 [facility] [address] [address]- 0034 30 Jan, 2015 [facility] [address] [address]- 6996 18 Jan, 2015 [facility] [address], [place] [address]- 4159 Jan, Bipolar disorder, unspecified F31.9 and Generalized anxiety disorder F41.1 [facility] [address] [address]- 7376 14 Dec, 2014 [facility] [address] [address]- 3092 Dec, Bipolar disorder, unspecified F31.9 and Generalized anxiety disorder F41.1 [facility] [id number] [place] [address] 06480- 8290 Dec, Generalized anxiety disorder F41.1 and Major depressive disorder, recurrent, moderate F33.1 [facility] [id number] [place] [address] 59443- 6488 Oct, Headache 784.0 ; Cough 786.2 ; Vomiting and diarrhea 787.03 and Dysuria 788.1 [facility] [id number] [place] [address] 24678- 4545 Aug, [facility] [address] 86095- 7438 Aug, Headache 784.0 and Shortness of breath 786.05 [facility] [id number] [place] [address] 65541- 3777 Aug, [facility] [id number] [place] [address] 49062- 2907 Aug, Migraine 346.90 [facility] [id number] [place] [address] 63548- 0040 Jun, [facility] [id number] [place] [address] 43169- 7144 Jun, [facility] [id number] [place] [address] 42794- 8113 May, [facility] [id number] [place] [address] 55554- 5345 May, [facility] [id number] [place] [address] 96683- 1060 May, [facility] [id number] [place] [address] 27187- 6716 May, [facility] [id number] [place] [address] 78131- 4819 May, [facility] [id number] [place] [address] 50351- 0169 May, [facility] [place] [facility] [address] [id number] [place] [address]- 6263 Apr, 2014 [facility] [place] [facility] [address] [id number] [place] 1036 Apr, 2014 [facility] [place] [facility] [address] [id number] [place] [address]- 0536 Apr, 2014 [facility] [place] [facility] [address] [id number] [place] [address]- 4909 Apr, [facility] [place] [facility] [address] [id number] [place] [address]- 3507 Apr, [facility] [place] [facility] [address] [id number] [place] [address]- 6055 Mar, [facility] [place] [facility] [address] [id number] [place] [address]- 8162 Mar, [facility] [place] [facility] [address] [id number] [place] [address]- 5676 Mar, [facility] [place] [facility] [address] [id number] [place] [address]- 9585 Mar, [facility] [place] [facility] [address] [facility] [id number] [place] [address]- 3116 Feb, [facility] [place] [facility] [address] [id number] [place] [address]- 0831 19 Feb, 2014 [facility] [place] [facility] [address] [id number] [place] [address]- 6446 18 Feb, 2014 [facility] [place] [facility] [address] [id number] [place] [address]- 4412 18 Feb, 2014 [facility] [place] [facility] [address] [id number] [place] [address]- 1866 16 Feb, 2014 [facility] [place] [facility] [address] [id number] [place] 4217 Feb, [facility] [place] [facility] [address] [id number] [place] [address]- 0062 Feb, [facility] [place] [facility] [address] [id number] [place] [address]- 8515 Feb, [facility] [place] [facility] [address] [id number] [place] 7932 Feb, [facility] [place] [facility] [address] [id number] [place] [address]- 0903 Feb, [facility] [place] [facility] [address] [id number] [place] [address]- 2309 Feb, [facility] [place] [facility] [address] [id number] [place] [address]- 6529 Feb, [facility] [place] [facility] [address] [id number] [place] [address]- 4849 Jan, [facility] [place] [facility] [address] [id number] [place] [address]- 6802 Jan, [facility] [place] [facility] [address] [id number] [place] [address]- 0730 Dec, [facility] [place] [facility] [address] [id number] [place] [address]- 1180 Dec, [facility] [place] [facility] [address] [id number] [place] [address]- 0971 Dec, [facility] [place] [facility] [address] [id number] [place] [address]- 9801 Dec, [facility] [place] [facility] [address] [id number] [place] [address]- 1974 Dec, [facility] [place] [facility] [address] [id number] [place] [address]- 6165 Dec, [facility] [place] [facility] [address] [id number] [place] [address]- 6035 Sep, [facility] [place] [facility] [address] [id number] [place] [address]- 7446 Sep, [facility] [place] [facility] [address] [id number] [place] [address]- 7153 Sep, [facility] [place] [facility] [address] [id number] [place] [address]- 0070 Sep, [facility] [place] [facility] [address] [id number] [place] [address]- 8884 Sep, [facility] [place] [facility] [address] [id number] [place] [address]- 6885 Sep, [facility] [place] [facility] [address] [id number] [place] [address]- 6885 Sep, [facility] [place] [facility] [address] [id number] [place] [address]- 1277 Sep, [facility] [place] [facility] [address] [id number] [place] [address]- 1624 Sep, [facility] [place] [facility] [address] [id number] [place] [address]- 4241 Sep, [facility] [place] [facility] [address] [id number] [place] [address]- 1443 Aug, [facility] [place] [facility] [address] [id number] [place] [address]- 8759 Aug, [facility] [place] [facility] [address] [id number] [place] [address]- 2082 Aug, [facility] [place] [facility] [address] [id number] [place] [address]- 9868 Aug, [facility] [place] [facility] [address] [id number] [place] [address]- 0563 Aug, [facility] [place] [facility] [address] [id number] [place] [address]- 7388 Aug, [facility] [place] [facility] [address] [id number] [place] [address]- 8746 Aug, [facility] [place] [facility] [address] [id number] [place] [address]- 0836 Aug, [facility] [address] [id number] [place] [address]- 3685 Aug, [facility] [place] [facility] [address] [id number] [place] [address]- 8778 Aug, [facility] [address] [id number] [place] [address]- 8436 Aug, [facility] [place] [facility] [address] [id number] [place] [address]- 3616 Aug, [facility] [place] [facility] [address] [id number] [place] [address]- 9952 Aug, [facility] [place] [facility] [address] [id number] [place] [address]- 1237 July, [facility] [place] [facility] [address] [id number] [place] [address]- 8922 July, [facility] [address] [id number] [place] [address]- 8419 July, [facility] [place] [facility] [address] [id number] [place] [address]- 5603 July, [facility] [address] [id number] [place] [address]- 4027 July, [facility] [place] [facility] [address] [id number] [place] [address]- 0332 July, [facility] [place] [facility] [address] [id number] [place] [address]- 8851 July, [facility] [place] [facility] [address] [id number] [place] [address]- 4247 Jun, [facility] [place] [facility] [address] [id number] [place] [address]- 6737 Jun, [facility] [place] [facility] [address] [id number] [place] [address]- 3657 Jun, [facility] [place] [facility] [address] [id number] [place] [address]- 3069 16 Jun, 2013 [facility] [place] [facility] [address] [id number] [place] [address]- 7176 16 Jun, 2013 [facility] [place] [facility] [address] [id number] [place] [address]- 9696 Jun, [facility] [place] [facility] [address] [id number] [place] [address]- 3123 Jun, [facility] [place] [facility] [address] [id number] [place] [address]- 4356 17 May, 2013 [facility] [place] [facility] [address] [id number] [place] [address]- 5249 17 May, 2013 [facility] [place] [facility] [address] [id number] [place] [address]- 5870 14 May, 2013 [facility] [place] [facility] [address] [id number] [place] [address]- 9730 14 May, 2013 [facility] [place] [facility] [address] [id number] [place] [address]- 1211 13 May, 2013 [facility] [place] [facility] [address] [id number] [place] [address]- 1950 13 May, 2013 [facility] [place] [facility] [address] [id number] [place] [address]- 9803 10 May, 2013 [facility] [place] [facility] [address] [id number] [place] [address]- 7595 10 May, 2013 [facility] [place] [facility] [address] [id number] [place] [address]- 8405 07 May, 2013 [facility] [place] [facility] [address] [id number] [place] [address]- 9047 Apr, [facility] [place] [facility] [address] [id number] [place] 4702 Apr, [facility] [place] [facility] [address] [id number] [place] [address]- 0636 18 Apr, 2013 [facility] [place] [facility] [address] [id number] [place] [address]- 0626 Apr, [facility] [place] [facility] [address] [id number] [place] [address]- 0546 Apr, [facility] [place] [facility] [address] [id number] [place] [address]- 2186 Apr, [facility] [place] [facility] [address] [id number] [place] [address]- 0007 Apr, [facility] [place] [facility] [address] [id number] [place] [address]- 0728 Apr, [facility] [place] [facility] [address] [id number] [place] [address]- 9100 Apr, [facility] [place] [facility] [address] [id number] [place] [address]- 2312 Apr, [facility] [place] [facility] [address] [id number] [place] [address]- 8101 Mar, [facility] [place] [facility] [address] [id number] [place] [address]- 5843 Mar, [facility] [place] [facility] [address] [facility] [id number] [place] [address]- 3438 Mar, [facility] [place] [facility] [address] [id number] [place] [address]- 7732 Mar, [facility] [place] [facility] [address] [id number] [place] [address]- 1350 Mar, [facility] [place] [facility] [address] [id number] [place] [address]- 7278 Mar, [facility] [place] [facility] [address] [id number] [place] 1506 Mar, [facility] [place] [facility] [address] [id number] [place] [address]- 1475 Mar, [facility] [place] [facility] [address] [id number] [place] [address]- 4379 Feb, [facility] [place] [facility] [address] [id number] [place] [address]- 7004 Feb, [facility] [place] [facility] [address] [id number] [place] [address]- 5133 Jan, [facility] [place] [facility] [address] [id number] [place] [address]- 2243 Jan, [facility] [place] [facility] [address] [id number] [place] [address]- 8467 Jan, [facility] [place] [facility] [address] [id number] [place] [address]- 8868 Jan, [facility] [place] [facility] [address] [id number] [place] [address]- 9203 Jan, [facility] [place] [facility] [address] [id number], [place] [address]- 9826 Jan, [facility] [place] [facility] [address] [id number] [place] [address]- 6042 Jan, [facility] [place] [facility] [address] [id number], [place] [address]- 0480 05 Jan, 2013 [facility] [place] [facility] [address] [id number], [place] [address]- 5055 Dec, [facility] [place] [facility] [address] [id number], [place] [address]- 7941 10 Dec, 2012 [facility] [place] [facility] [address] [id number] [place] [address]- 9358 10 Dec, 2012 [facility] [place] [facility] [address] [id number], [place] [address]- 3792 20 Nov, 2012 [facility] [place] [facility] [address] [id number] [place] [address]- 6819 13 Nov, 2012 [facility] [place] [facility] [address] [id number] [place] [address]- 6911 12 Nov, 2012 [facility] [address] [id number] [place] [address]- 5435 Nov, [facility] [place] [facility] [address] [id number] [place] [address]- 2501 Nov, [facility] [place] [facility] [address] [id number] [place] [address]- 0482 Nov, [facility] [place] [facility] [address] [id number] [place] [address]- 8871 Oct, [facility] [place] [facility] [address] [id number] [place] [address]- 3968 Oct, [facility] [place] [facility] [address] [id number] [place] [address]- 2066 Sep, [facility] [place] [facility] [address] [id number] [place] [address]- 8704 Sep, [facility] [place] [facility] [address] [id number] [place] [address]- 6862 Sep, [facility] [place] [facility] [address] [id number] [place] [address]- 3580 Sep, [facility] [place] [facility] [address] [id number] [place] [address]- 3134 Sep, [facility] [place] [facility] [address] [id number] [place] [address]- 6631 Sep, [facility] [place] [facility] [address] [id number] [place] [address]- 9481 Sep, [facility] [place] [facility] [address] [id number] [place] [address]- 5660 Aug, [facility] [place] [facility] [address] [id number] [place] [address]- 0982 Aug, [facility] [place] [facility] [address] [id number] [place] [address]- 9837 Aug, [facility] [place] [facility] [address] [id number] [place] [address]- 1079 Aug, [facility] [address] [id number] [place] [address]- 5209 Aug, [facility] [address] [id number] [place] [address]- 6564 Aug, [facility] [address] [id number] [place] [address]- 1551 July, [facility] [address] [id number] [place] [address]- 1204 July, [facility] [address] [id number] [place] [address]- 3547 July, [facility] [address] [id number] [place] [address]- 0696 July, [facility] [address] [id number] [place] [address]- 6617 July, [facility] [address] [id number] [place] [address]- 1749 July, [facility] [address] [id number] [place] [address] Jun, [facility] [address] [id number] [place] [address] Jun, [facility] [address] [id number] [place] [address] Jun, [facility] [address] [id number] [place] [address] Jun, [facility] [place] [facility] [address] [id number] [place] [address] Jun, [facility] [place] [facility] [address] [id number] [place] [address] Jun, [facility] [place] [facility] [address] [id number] [place] [address] Jun, [facility] [address] [id number] [place] [address] May, [facility] [place] [facility] [address] [id number] [place] [address] May, [facility] [place] [facility] [address] [facility] [id number] [place] [address] 26 Apr, 2012 [facility] [place] [facility] [address] [id number] [place] [address] Apr, 2012 [facility] [place] [facility] [address] [id number] [place] [address] Apr, 2012 [facility] [place] [facility] [address] [id number] [place] [address] Apr, 2012 [facility] [address] [facility] [id number] [place] [address] Apr, [facility] [place] [facility] [address] [id number] [place] [address] 08 Apr, 2012 [facility] [place] [facility] [address] [facility] [id number] [place] [address] 07 Apr, 2012 [facility] [place] [facility] [address] [facility] [id number] [place] [address] 07 Apr, 2012 [facility] [place] [facility] [address] [facility] [id number] [place] [address] 06 Apr, 2012 [facility] [place] [facility] [address] [facility] [id number] [place] [address] 254 Apr, 2012 [facility] [place] [facility] [address] [id number] [place] [address] Apr, 2012 [facility] [place] [facility] [address] [facility] [id number] [place] [address] 95[address] Mar, [facility] [place] [facility] [address] [id number] [place] [address] Mar, [facility] [place] [facility] [address] [id number] [place] [address] Mar, [facility] [address] [id number] [place] [address] Mar, [facility] [address] [id number] [place] [address] Mar, [facility] [address] [id number] [place] [address] Mar, [facility] [address] [id number] [place] [address] Mar, [facility] [address] [id number] [place] [address] Mar, [facility] [address] [id number] [place] [address] Mar, [facility] [address] [id number] [place] [address] Mar, [facility] [address] [id number] [place] [address] Mar, [facility] [address] [id number] [place] [address] Mar, [facility] [address] [id number] [place] [address] Mar, [facility] [address] [id number] [place] [address] Feb, [facility] [address] [id number] [place] [address] Feb, [facility] [address] [id number] [place] [address] Feb, [facility] [address] [id number] [place] [address] Feb, [facility] [address] [id number] [place] [address] Feb, [facility] [place] [facility] [address] [id number] [place] [address] Feb, [facility] [place] [facility] [address] [id number] [place] [address]- [address] Feb, [facility] [place] [facility] [address] [id number] [place] [address] Feb, [facility] [place] [facility] [address] [id number] [place] [address] Feb, [facility] [place] [facility] [address] [id number] [place] [address] Feb, [facility] [place] [facility] [address] [id number] [place] [address] Feb, [facility] [place] [facility] [address] [id number] [place] [address] Feb, [facility] [place] [facility] [address] [id number] [place] [address] Feb, [facility] [place] [facility] [address] [id number] [place] [address] Feb, [facility] [place] [facility] [address] [id number] [place] [address] Feb, [facility] [place] [facility] [address] [id number] [place] [address] Jan, [facility] [place] [facility] [address] [id number] [place] [address]- 9579 Jan, [facility] [place] [facility] [address] [id number] [place] [address] Jan, [facility] [place] [facility] [address] [id number] [place] [address] Jan, [facility] [place] [facility] [address] [id number] [place] [address] Dec, [facility] [place] [facility] [address] [id number] [place] [address]- [address] 29 Dec, 2011 [facility] [place] [facility] [address] [id number] [place] [address] Dec, 2011 [facility] [place] [facility] [address] [id number] [place] [address] Dec, 2011 [facility] [place] [facility] [address] [id number] [place] [address] Dec, 2011 [facility] [place] [facility] [address] [id number] [place] [address] Dec, 2011 [facility] [place] [facility] [address] [id number] [place] [address] Dec, 2011 [facility] [place] [facility] [address] [id number] [place] [address] Dec, 2011 [facility] [place] [facility] [address] [id number] [place] [address] Dec, [facility] [address] [id number] [place] [address]28 04 Dec, 2011 [facility] [place] [facility] [address] [id number] [place] [address] 03 Dec, 2011 [facility] [place] [facility] [address] [id number] [place] [address] 25 Sep, 2011 [facility] [place] [facility] [address] [id number] [place] [address]48 24 Sep, 2011 [facility] [place] [facility] [address] [id number] [place] [address] 2542 20 Sep, 2011 [facility] [place] [facility] [address] [id number] [place] [address]46 19 Sep, 2011 [facility] [place] [facility] [address] [id number] [place] [address] 17 Sep, 2011 [facility] [place] [facility] [address] [id number] [place] [address] 1660 16 Sep, 2011 [facility] [place] [facility] [address] [id number] [place] [address]258 14 Sep, 2011 [facility] [place] [facility] [address] [id number] [place] [address]276 13 Sep, 2011 [facility] [place] [facility] [address] [id number] [place] [address] 12 Sep, 2011 [facility] [place] [facility] [address] [id number] [place] [address] 8980 07 Sep, 2011 [facility] [place] [facility] [address] [id number] [place] [address] 6426 06 Sep, 2011 [facility] [place] [facility] [address] [id number] [place] [address]- 6317 06 Sep, 2011 [facility] [place] [facility] [address] [id number] [place] [address] 8342 05 Nov, 2011 [facility] [place] [facility] [address] [id number] [place] [address] 3469 29 Oct, 2011 [facility] [place] [facility] [address] [id number] [place] [address] 0098 29 Oct, 2011 [facility] [place] [facility] [address] [id number] [place] [address] 4304 28 Oct, 2011 [facility] [place] [facility] [address] [id number] [place] [address] 2032 28 Oct, 2011 [facility] [place] [facility] [address] [id number] [place] [address] 6567 23 Oct, 2011 [facility] [place] [facility] [address] [id number] [place] [address] 7146 Oct, [facility] [place] [facility] [address] [id number] [place] [address] 68[address] Oct, [facility] [place] [facility] [address] [id number] [place] [address]- 7988 16 Oct, 2011 [facility] [place] [facility] [address] [id number] [place] [address] 4466 Oct, [facility] [address] [id number] [place] [address] 6485 Oct, [facility] [place] [facility] [address] [id number] [place] [address] 7925 Oct, [facility] [place] [facility] [address] [id number] [place] [address] 1749 Sep, [facility] [place] [facility] [address] [id number] [place] [address] 54[address] Sep, [facility] [place] [facility] [address] [id number] [place] [address] 8165 Sep, [facility] [place] [facility] [address] [id number] [place] [address] 8702 Sep, [facility] [address] [id number] [place] [address] 8663 Sep, [facility] [place] [facility] [address] [id number] [place] [address] 4414 Sep, [facility] [place] [facility] [address] [id number] [place] [address] 5968 Aug, [facility] [place] [facility] [address] [id number] [place] [address] 1146 July, [facility] [place] [facility] [address] [id number] [place] [address] 88[address] July, [facility] [place] [facility] [address] [id number] [place] [address] 4440 Jun, [facility] [place] [facility] [address] [id number] [place] [address]- 8970 Jun, [facility] [place] [facility] [address] [id number] [place] [address] 7872 Jun, [facility] [place] [facility] [address] [id number] [place] [address] 9848 Jun, [facility] [place] [facility] [address] [id number] [place] [address] 7927 10 Jun, 2011 [facility] [place] [facility] [address] [id number] [place] [address]- 0024 10 Jun, 2011 [facility] [place] [facility] [address] [id number] [place] [address]- 1366 09 Jun, 2011 [facility] [place] [facility] [address] [id number] [place] [address] 8152 08 Jun, 2011 [facility] [place] [facility] [address] [id number] [place] [address] 1137 Jun, [facility] [place] [facility] [address] [id number] [place] [address] 3178 Jun, [facility] [place] [facility] [address] [id number] [place] [address] Jun, [facility] [place] [facility] [address] [id number] [place] [address]- 0066 May, [facility] [place] [facility] [address] [id number] [place] [address]- 8770 16 May, 2011 [facility] [place] [facility] [address] [id number] [place] [address]- 1284 14 May, 2011 [facility] [place] [facility] [address] [id number] [place] [address]- 1765 06 May, 2011 [facility] [place] [facility] [address] [id number] [place] [address]- 266[address] Apr, [facility] [place] [facility] [address] [id number] [place] [address] 8020 28 Apr, 2011 [facility] [place] [facility] [address] [id number] [place] [address]- 7212 27 Apr, 2011 [facility] [place] [facility] [address] [id number] [place] [address]- 2491 23 Apr, 2011 [facility] [place] [facility] [address] [id number] [place] [address]- 9580 Apr, [facility] [address] [id number] [place] [address] Apr, [facility] [address] [id number] [place] [address] 2381 Apr, [facility] [address] [id number] [place] [address]- 5527 Apr, [facility] [address] [id number] [place] [address] 5727 Mar, [facility] [address] [id number] [place] [address] 0532 Mar, [facility] [address] [id number] [place] [address]- 7522 Mar, [facility] [address] [id number] [place] [address]- 5906 Mar, [facility] [address] [id number] [place] [address] 4207 Mar, [facility] [address] [id number] [place] [address] 9997 Mar, [facility] [address] [id number] [place] [address]- 7712 Mar, [facility] [address] [id number] [place] [address]- 0475 Mar, [facility] [place] [facility] [address] [id number] [place] [address]- 6663 Mar, [facility] [place] [facility] [address] [id number] [place] [address]- 8006 Mar, [facility] [place] [facility] [address] [id number] [place] [address] 7995 Mar, [facility] [address] [id number] [place] [address]- 7183 Mar, [facility] [place] [facility] [address] [id number] [place] [address]- 3376 Mar, [facility] [place] [facility] [address] [id number] [place] [address]- 2226 Mar, [facility] [place] [facility] [address] [id number] [place] [address]- 0602 Mar, [facility] [place] [facility] [address] [id number] [place] [address]- 6163 Mar, [facility] [place] [facility] [address] [id number] [place] [address]- 5091 Feb, [facility] [place] [facility] [address] [id number] [place] [address]- 9233 Feb, [facility] [place] [facility] [address] [id number] [place] [address]- 2634 Feb, [facility] [place] [facility] [address] [id number] [place] [address]- 3189 Jan, [facility] [place] [facility] [address] [id number] [place] [address]- 2138 Jan, [facility] [place] [facility] [address] [id number] [place] [address]- 5131 Jan, [facility] [place] [facility] [address] [id number] [place] [address]- 9216 Dec, [facility] [place] [facility] [address] [id number] [place] [address]- 7211 Dec, [facility] [place] [facility] [address] [id number] [place] [address]- 4405 Nov, [facility] [place] [facility] [address] [id number] [place] [address]- 1811 Oct, [facility] [place] [facility] [address] [id number] [place] [address]- 8840 Oct, [facility] [place] [facility] [address] [id number] [place] [address]- 1451 Oct, [facility] [address] [facility] [id number] [place] [address]46 Sep, [facility] [address] [facility] [id number], [place] [address]46 Apr, [facility] [address] [facility] [id number] [place] [address]- 2546 Feb, [facility] [address] [facility] [id number], [place] [address]- [address]46 Jan, IMMUNIZATIONS No Known Immunizations SOCIAL HISTORY Never Assessed [place]ASON FOR [place] [place] VITAL SIGNS MEDICATIONS No [...] 2/2 Benzos OD, pneumonia MRSA, [facility], Hypokalemia-- [facility] 12/20/2015 Hospitalization History COPD exacerbation, Asthma-[facility] 09/21/16 Hospitalization History COPD-[facility] 12/30/2016 Hospitalization History [facility] and [facility] for inpatient-last around 2006 or so. Hospitalization History [facility] for COPD x2 Mar 2017 Hospitalization History Upper GI bleed at apr [address] [facility]- COPD Exacerbation, diarrhea 05/23/2017 Hospitalization History COPD exacerbation-[facility] 06/13/17 Hospitalization History [facility] 09/09/2017 Hospitalization History COPD-UTI--[facility] 11/2017
[2018-06-30 11:28] LABS: ABG BASE EXCESS 1.5 MMOL/L (-2.5-2.5); ABG OXYGEN SATURATION 99 % (94-100); ABG PCO2 39 MMHG (35-45); ABG PH 7.43 (7.37-7.43); ABG PO2 131 MMHG (79-93); ABG TCO2 26.6 MMOL/L (21.0-31.0)
--- OUTSIDE RECORDS SUMMARY | 2018-06-30 11:28 | XMS REPORT ---
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 Active Problem TMJ (sprain of temporomandibular joint) S03.4XXA Active 10062069 Problem Migraine G43.909 Active 87442115 Problem Memory loss R41.3 Active 24082477 Problem Chronic constipation K59.09 Active 700953191 Problem Bipolar disorder with depression F31.30 Active 05963495 Problem Bipolar disorder, unspecified F31.9 Active 67938883 Problem Migraine without aura and without status migrainosus, not intractable G43.009 Active 634155963 Problem Chronic bronchitis, unspecified chronic bronchitis type J42 Active 44862926 Problem Methamphetamine use disorder, moderate, 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 Active 24394015 Problem Acute on chronic systolic congestive heart failure I50.23 Active 449099515 Problem Other emphysema J43.8 Active 02164395 Problem COPD exacerbation J44.1 Active 905314122 Problem Generalized anxiety disorder F41.1 Active 24373486 Problem Examination of eyes and vision V72.0 Active 321170946 Problem Diabetes E11.9 Active 162946661 Problem Intractable cyclical vomiting with nausea G43.A1 Active 56932222 Problem Anxiety F41.9 Active 14842541 Problem Chronic obstructive pulmonary disease, unspecified COPD type J44.9 Active 99541469 ALLERGIES No Information ENCOUNTERS Encounter Location Date Diagnosis [facility] [id number] [address] May, Chronic obstructive pulmonary disease with acute exacerbation J44.1 and Tobacco abuse Z72.0 [facility] [address] [address] May, Chronic obstructive pulmonary disease with acute exacerbation J44.1 [facility] [address], [place] [address] Apr, [facility] [id number] [place] [address] 24925- 7122 Apr, [facility] [id number] [place] [address] 10897- 5520 Feb, Diabetes E11.9 ; Chronic obstructive pulmonary disease with (acute) exacerbation J44.1 and Encounter for immunization Z23 [facility] [id number] [place] [address] 53487- 3796 Jan, COPD exacerbation J44.1 [facility] [id number] [place] [address] 75103- 5110 Jan, Dental abscess K04.7 [facility] [id number] [place] [address] 60457- 1205 Jan, COPD exacerbation J44.1 and Acute on chronic systolic congestive heart failure I50.23 [facility] [id number] [place] [address] 30987- 5053 Dec, [facility] [id number] [place] [address] 83040- 9910 Dec, [facility] [id number] [place] [address] 23392- 7106 Nov, [facility] [id number] [place] [address] 90435- 0724 Nov, COPD with exacerbation J44.1 and Urinary tract infection without hematuria, site unspecified N39.0 [facility] [id number] [place] [address] 29235- 1632 Nov, Chronic obstructive pulmonary disease, unspecified COPD type J44.9 [facility] [id number] [place] [address] 06067- 6008 Oct, [facility] [id number] [place] [address] 08463- 6968 Oct, [facility] [id number] [address] 0[address] Oct, [facility] [id number], [place] [address] 3[address] Oct, [facility] [address] [address] 6398 Oct, Thrush B37.0 [facility] [id number] [place] [address] 65258- 0426 Sep, COPD with exacerbation J44.1 and Anxiety F41.9 [facility] [address] [address] 3[address] Sep, [facility] [address] [address]- 2588 Sep, [facility] [address] [address] 5196 Sep, [facility] [address] [address] Sep, Acute congestive heart failure, unspecified heart failure type I50.9 and Anxiety disorder, unspecified F41.9 [facility] [address], [place] [address] 4480 Sep, Heart failure, unspecified HF chronicity, unspecified heart failure type I50.9 [facility] [address] [address]- 3652 Sep, [facility] [address], [place] [address] 4034 Aug, Chronic obstructive pulmonary disease with acute exacerbation J44.1 [facility] [address] [address]- 0944 Aug, [facility] [address], [place] [address]- 1813 Aug, [facility] [address] [address]- 6618 July, [facility] [id number] [place] [address] 88500- 6036 July, [facility] [id number] [place] [address] 55935- 3224 July, Diabetes E11.9 and Chronic obstructive pulmonary disease with acute exacerbation J44.1 [facility] [id number] [place] [address] 41209- 6137 Jun, Chronic obstructive pulmonary disease with acute exacerbation J44.1 ; Diabetes E11.9 and Tobacco abuse Z72.0 [facility] [id number] [place] [address] 78410- 3567 Jun, [facility] [id number] [place] [address] 94339- 8335 Jun, [facility] [id number] [place] [address] 47245- 3556 May, [facility] [id number] [place] [address] 98485- 9044 May, [facility] [address], [place] [address] May, [facility] [address] [address]- 5[address] 16 May, 2017 [facility] [id number] [place] [address] 02377- 1077 15 May, 2017 [facility] [id number] [place] [address] 29593- 4466 14 May, 2017 Diarrhea, unspecified type R19.7 and Intractable cyclical vomiting with nausea G43.A1 [facility] [address] [address]- 6060 May, [facility] [id number] [place] [address] 35765- 5974 May, [facility] [id number] [place] [address] 77026- 5783 Apr, COPD exacerbation J44.1 ; Esophageal candidiasis B37.81 ; Other acute gastritis with hemorrhage K29.01 and Acute posthemorrhagic anemia D62 [facility] [id number] [place] [address] 16476- 0299 Apr, Viral illness B34.9 and COPD exacerbation J44.1 [facility] [id number] [place] [address] 25807 -1559 Apr, Shortness of breath R06.02 and Pneumonia of both lower lobes due to infectious organism J18.9 [facility] [id number] [place] [address] 88843 -0788 Mar, COPD with acute exacerbation J44.1 [place] [address] 92990- 1403 Mar, Chronic obstructive pulmonary disease with acute exacerbation J44.1 and Diabetes E11.9 [facility] [facility] [id number] [place] [address] 96817- 8465 Mar, [facility] [id number] [place] [address] 41498- 1982 Mar, [facility] [id number] [place] [address] 39983 -6151 Mar, COPD exacerbation J44.1 [facility] [id number] [place] [address] 67978- 7665 Mar, [place] [id number] [place] [address] 38399- 6662 Mar, Migraine G43.909 ; Hypokalemia E87.6 and Type 2 diabetes mellitus without complications E11.9 [facility] [id number] [place] [address] 07114- 5310 Feb, [facility] [id number] [place] [address] 13808- 1378 Feb, [place] [id number] [place] [address] 71811- 1011 Feb, Methamphetamine use disorder, moderate, 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 ; Major depressive disorder, recurrent, moderate F33.1 ; Anxiety disorder, unspecified F41.9 and Tobacco abuse Z72.0 [place] [id number] [place] [address] 42488- 6662 Jan, Major depressive disorder, recurrent, moderate F33.1 [facility] [id number] [place] [address] 66768- 8508 Jan, [place] [id number] [place] [address] 42805- 9537 Jan, [place] [id number] [place] [address] 70254- 2007 Jan, Major depressive disorder, recurrent, moderate F33.1 [place] [id number] [place] [address] 05195- 2412 Jan, Major depressive disorder, recurrent, moderate F33.1 ; Anxiety disorder, unspecified F41.9 ; Methamphetamine use disorder, moderate, 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 and Tobacco abuse Z72.0 [place] [id number] [place] [address] 77911- 4936 Jan, [place] [id number] [place] [address] 87134- 8558 Jan, Chronic obstructive pulmonary disease with acute exacerbation J44.1 and Diabetes E11.9 [place] [id number] [place] [address] 34207- 4864 Jan, [place] [id number] [place] [address] 67327- 3054 Jan, [place] [id number] [place] [address] 30111- 9013 24 Oct, 2017 Acute respiratory failure with hypoxia J96.01 ; Chronic bronchitis, unspecified chronic bronchitis type J42 and Tobacco use Z72.0 [facility] [id number] [place] [address] 40656- 8807 Dec, [facility] [id number] [place] [address] [id number] Nov, Dental caries K02.9 and Dental examination Z01.20 [facility] [id number] [place] [address] 09728- 9030 Nov, Major depressive disorder, recurrent, moderate F33.1 ; Anxiety disorder, unspecified F41.9 and Other 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 [facility] [id number] [place] [address] [id number] Oct, Dental examination Z01.20 [facility] [id number] [place] [address] 53458- 2734 Oct, [facility] [id number] [place] [address] 96064- 4485 Oct, Diabetes E11.9 and Thrush B37.0 [facility] [id number] [place] [address] 52904- 2578 Oct, [facility] [id number] [place] [address] 03219- 6497 Oct, [facility] [id number] [place] [address] 86041- 8093 Oct, [facility] [id number] [place] [address] 87065- 4176 Sep, Major depressive disorder, recurrent, moderate F33.1 ; Anxiety disorder, unspecified F41.9 and Bipolar disorder, unspecified F31.9 [facility] [address] [place] [address] 48858- 1512 Sep, Acute exacerbation of chronic obstructive pulmonary disease (COPD) J44.1 and Migraine G43.909 [facility] [id number] [address]- 6017 Sep, [facility] [id number] [id number] Sep, [facility] [address] [address]- 0163 Sep, Acute exacerbation of chronic obstructive pulmonary disease (COPD) J44.1 [facility] [address] [address]323 Sep, Acute exacerbation of chronic obstructive pulmonary disease (COPD) J44.1 [facility] [address] [address]- 0907 Aug, [facility] [address] [address]- 4706 Aug, Major depressive disorder, recurrent, moderate F33.1 ; Anxiety disorder, unspecified F41.9 and 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 [facility] [address] [address]- 9937 Aug, Wheezing R06.2 ; Non morbid obesity due to excess calories E66.09 ; Migraine without aura and without status migrainosus, not intractable G43.009 and Tobacco abuse Z72.0 [facility] [id number] [id number] 14 Aug, 2016 Encounter for dental examination Z01.20 [facility] [address], [place] [address]- 1569 02 Aug, 2016 Major depressive disorder, recurrent, moderate F33.1 ; Anxiety disorder, unspecified F41.9 and Other stimulant dependence with unspecified stimulant-induced disorder 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 [facility] [address] [address]- 1362 July, [facility] [address], [place] [address]- 2772 July, [facility] [id number] [address]- 4206 July, [facility] [id number] [place] [address] 44970- 8796 July, Diabetes E11.9 [facility] [id number] [place] [address] 83541- 7918 Jun, Major depressive disorder, recurrent, moderate F33.1 [place] [id number] [place] [address] 16510- 2041 Jun, Major depressive disorder, recurrent, moderate F33.1 ; 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 ; Generalized anxiety disorder F41.1 and Bipolar disorder, unspecified F31.9 [place] [id number] [place] [address] 80279- 3890 Jun, Diabetes E11.9 ; Migraine G43.909 ; Thrush B37.0 and Wheezing R06.2 [facility] [address] [id number] Jun, Dental examination Z01.20 [place] [id number] [place] [address] 13881- 7138 Jun, [place] [id number] [place] [address] 25844- 3718 Jun, Major depressive disorder, recurrent, moderate F33.1 ; Anxiety disorder, unspecified F41.9 and 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 [facility] [address] [place] [address] 20051- 8569 Jun, [facility] [id number] [place] [address] 23713- 5842 Jun, Wheezing R06.2 [facility] [address] [id number] Jun, Dental caries K02.9 [facility] [id number] [place] [address] 60904- 4873 Jun, Major depressive disorder, recurrent, moderate F33.1 ; Anxiety disorder, unspecified F41.9 and Other 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 [place] [id number] [place] [address] 77799- 6589 Jun, RLQ abdominal pain R10.31 ; Diabetes E11.9 ; Obesity, unspecified obesity severity, unspecified obesity type E66.9 ; Wheezing R06.2 and Abnormal urinalysis R82.90 [place] [address] 14251- 9184 May, [place] [address] 46343- 9523 May, Well woman exam Z01.419 ; Breast cancer screening Z12.39 ; Cervical cancer screening Z12.4 ; Urinary frequency R35.0 ; Edema, unspecified type R60.9 and Chronic constipation K59.09 [place] [address] 26295- 6647 May, Major depressive disorder, recurrent, moderate F33.1 ; Anxiety disorder, unspecified F41.9 and 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 [facility] [id number] [place] [address] [id number] May, Dental examination Z01.20 [place] [id number] [place] [address] 19061- 5730 May, [place] [address] 62011- 6635 May, [facility] [address] 46491- 3359 May, Chronic constipation K59.09 [place] [id number] [place] [address] 69715- 0103 Apr, [facility] [id number] [place] [address] 95816- 7045 Apr, Major depressive disorder, recurrent, moderate F33.1 ; Anxiety disorder, unspecified F41.9 and 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 [place] [id number] [place] [address] 80019- 2082 Apr, [place] [id number] [place] [address] 96118- 7265 Mar, Major depressive disorder, recurrent, moderate F33.1 [place] [id number] [place] [address] 82064- 6124 Mar, Major depressive disorder, recurrent, moderate F33.1 ; Generalized anxiety disorder F41.1 and Bipolar I disorder, most recent episode depressed with anxious distress F31.30 [place] [id number] [place] [address] 47299- 6051 Mar, Diabetes E11.9 ; Non morbid obesity due to excess calories E66.09 ; Breast cancer screening Z12.39 and Encounter for immunization Z23 [place] [id number] [place] [address] 15359- 8420 Mar, Major depressive disorder, recurrent, moderate F33.1 ; Anxiety disorder, unspecified F41.9 and 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 [place] [address] [place] [address] 45900- 4662 Mar, [place] [id number] [place] [address] 28553- 6062 Feb, Major depressive disorder, recurrent, moderate F33.1 ; Anxiety disorder, unspecified F41.9 and 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 [place] [id number] [place] [address] 93273- 5054 Feb, [place] [id number] [place] [address] 92206- 5545 Feb, [place] [id number] [place] [address] 23426- 1720 Jan, Major depressive disorder, recurrent, moderate F33.1 ; Generalized anxiety disorder F41.1 and Bipolar disorder, current episode depressed, severe, without psychotic features F31.4 [facility] [address] [place] [address] 47721- 1116 Jan, Major depressive disorder, recurrent, moderate F33.1 ; Anxiety disorder, unspecified F41.9 and 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 [facility] [id number] [place] [address] 76416- 0544 Jan, Bronchitis J40 [facility] [address] 75598- 2232 Jan, [facility] [id number] [place] [address] 69164- 4179 Jan, [facility] [id number] [place] [address] 07610- 1138 Jan, Elbow injury, right, initial encounter S59.901A ; Multiple contusions T14.8 and Cervical strain, acute, initial encounter S16.1XXA [facility] [id number] [place] [address] 42755- 2108 Dec, Major depressive disorder, recurrent, moderate F33.1 ; Generalized anxiety disorder F41.1 and Bipolar disorder with depression F31.30 [facility] [id number] [place] [address] 55483- 6358 Dec, [facility] [id number] [place] [address] 26213- 1971 Dec, [facility] [id number] [place] [address] 90331- 3952 Dec, [facility] [id number] [place] [address] 58798- 9060 Dec, [facility] [id number] [place] [address] 29010- 2937 Dec, Yeast infection B37.9 [place] [id number] [address]- 2216 Dec, Pneumonia of both lungs due to methicillin resistant Staphylococcus aureus (MRSA), unspecified part of lung J15.212 and Benzodiazepine overdose, accidental or unintentional, subsequent encounter T42.4X1D [facility] [address] [address]- 4777 Dec, [place] [id number] [place] [address] 46575- 1800 Dec, [place] [id number] [place] [address] 31965- 5156 Dec, Knee pain, left M25.562 and Edema, unspecified type R60.9 [place] [address] [place] [address] 64948- 7554 Dec, [place] [id number] [place] [address] 21856- 1701 Dec, Anxiety disorder, unspecified F41.9 and Bipolar disorder, unspecified F31.9 [place] [address] [place] [address] 58576- 4736 Nov, Major depressive disorder, recurrent, moderate F33.1 ; Anxiety disorder, unspecified F41.9 and 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 [place] [address] [address]- 8395 Nov, [place] [address] [place] [address] 05017- 1094 Nov, Migraine without aura and without status migrainosus, not intractable G43.009 [place] [address] [place] [address] 04586- [address] Nov, Migraine G43.909 [place] [id number] [place] [id number] Nov, [place] [address] [place] [id number] [place] [address] Nov, Major depressive disorder, recurrent, moderate F33.1 ; Anxiety disorder, unspecified F41.9 and 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 [place] [address] [place] [id number] [place] [address] Oct, Chronic constipation K59.09 and Obesity, unspecified obesity severity, unspecified obesity type E66.9 [place] [address] [place] [id number] [place] [id number] Oct, Obesity, unspecified obesity severity, unspecified obesity type E66.9 ; Chronic constipation K59.09 and Anxiety disorder, unspecified F41.9 [facility] [id number] [place] [address] 85250- 2620 Oct, [facility] [id number] [place] [address] 09973- 0093 Sep, Diabetes E11.9 ; Edema, unspecified type R60.9 ; Varicose vein of leg I83.90 and Obesity, unspecified obesity severity, unspecified obesity type E66.9 [facility] [id number] [place] [address] 86684- 6212 Sep, Edema, unspecified type R60.9 ; Diabetes E11.9 and Knee pain , left M25.562 [facility] [id number] [place] [address] 89179- 5864 Sep, [facility] [id number] [place] [address] 80559- 0824 Sep, [facility] [id number] [place] [address] 91968- 9385 Sep, Major depressive disorder, recurrent, moderate F33.1 ; Generalized anxiety disorder F41.1 and Bipolar disorder, unspecified F31.9 [facility] [id number] [place] [address] 66196- 8233 Aug, Chondromalacia of left knee M94.262 [facility] [id number] [place] [address] 08135- 1381 24 Aug, 2015 Major depressive disorder, recurrent, moderate F33.1 ; Anxiety disorder, unspecified F41.9 and 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 [facility] [id number] [place] [address] 55143- 7384 Aug, [facility] [id number] [place] [address] 25221- 4438 Aug, Osteoarthritis of left knee M17.9 [facility] [id number] [place] [address] 44344- 3626 Aug, [facility] [id number] [place] [address] 81109- 4547 July, Major depressive disorder, recurrent, moderate F33.1 ; Anxiety disorder, unspecified F41.9 and 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 [facility] [id number] [place] [address] 51293- 0338 July, [facility] [id number] [place] [address] 23365- 7025 July, Chronic constipation K59.09 [facility] [id number] [place] [address] 58449- 1154 Jun, [facility] [id number] [place] [address] 78181- 9707 15 Jun, 2015 [facility] [id number] [place] [address] 15991- 0380 14 Jun, 2015 Osteoarthritis of left knee M17.9 [facility] [id number] [place] [address] 00956- 7726 Jun, [facility] [id number] [place] [address] 54808- 9417 Jun, Generalized anxiety disorder F41.1 ; Bipolar disorder, unspecified F31.9 and Major depressive disorder, recurrent, moderate F33.1 [facility] [address] 41401- 3315 Jun, Migraine G43.909 [facility] [address] 83153- 5424 Jun, Left knee pain M25.562 ; Chronic constipation K59.09 ; Dry mouth R68.2 ; Yeast vaginitis B37.3 and Memory loss R41.3 [facility] [address] 26769- 8348 Jun, [facility] [address] 79435- 8833 May, [facility] [address] 56085- 3200 May, [facility] [address] 71446- 8762 May, [facility] [address] 41311- 3135 May, [facility] [address] 70651- 0209 May, Acute bronchitis with COPD J44.0 ; Knee pain, left M25.562 and Encounter for tobacco use cessation counseling Z71.6 [facility] [address] 78780- 2387 May, [facility] [address] 58244- 1169 Apr, Diabetes E11.9 ; TMJ (sprain of temporomandibular joint) S03.4XXA ; Tobacco abuse Z72.0 ; Migraine G43.909 and Anxiety F41.9 [facility] [id number] [place] [address] 07289- 2146 Apr, Generalized anxiety disorder F41.1 and Bipolar disorder, unspecified F31.9 [facility] [address] [address] 2493 24 Apr, 2015 Major depressive disorder, recurrent, moderate F33.1 ; Anxiety disorder, unspecified F41.9 and 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 [facility] [address] [address]- 8866 Apr, [facility] [id number] [place] [address] 83899- 5795 Mar, [facility] [id number] [place] [address] 72168- 3866 Feb, [facility] [id number] [place] [address] 08190- 0924 Feb, Major depressive disorder, recurrent, moderate F33.1 ; Anxiety disorder, unspecified F41.9 and 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 [facility] [id number] [place] [address] 98433- 2620 Feb, [facility] [id number] [place] [address] 99514- 7115 Feb, Generalized anxiety disorder F41.1 and Bipolar disorder, unspecified F31.9 [facility] [address] [address]- 0273 30 Jan, 2015 [facility] [address] [address] 1986 18 Jan, 2015 [facility] [address] [address]- 0085 Jan, Bipolar disorder, unspecified F31.9 and Generalized anxiety disorder F41.1 [facility] [address] [address]- 8688 14 Dec, 2014 [facility] [address] [address]- 1190 Dec, Bipolar disorder, unspecified F31.9 and Generalized anxiety disorder F41.1 [facility] [id number] [place] [address] 75948- 3141 Dec, Generalized anxiety disorder F41.1 and Major depressive disorder, recurrent, moderate F33.1 [facility] [id number] [place] [address] 73893- 6557 Oct, Headache 784.0 ; Cough 786.2 ; Vomiting and diarrhea 787.03 and Dysuria 788.1 [facility] [id number] [place] [address] 22083- 2083 Aug, [facility] [address] 78886- 8150 Aug, Headache 784.0 and Shortness of breath 786.05 [facility] [id number] [place] [address] 22699- 1660 Aug, [facility] [id number] [place] [address] 16254- 6474 Aug, Migraine 346.90 [facility] [id number] [place] [address] 89646- 3110 Jun, [facility] [id number] [place] [address] 96647- 4058 Jun, [facility] [id number] [place] [address] 66994- 8059 May, [facility] [id number] [place] [address] 13473- 8856 May, [facility] [id number] [place] [address] 00536- 6673 May, [facility] [id number] [place] [address] 92733- 6010 May, [facility] [id number] [place] [address] 51188- 5187 May, [facility] [id number] [place] [address] 64223- 5791 May, [facility] [place] [facility] [address] [id number] [place] [address]- 9764 Apr, 2014 [facility] [place] [facility] [address] [id number] [place] 2796 Apr, 2014 [facility] [place] [facility] [address] [id number] [place] [address]- 4876 Apr, 2014 [facility] [place] [facility] [address] [id number] [place] [address]- 1538 Apr, [facility] [place] [facility] [address] [id number] [place] [address]- 3558 Apr, [facility] [place] [facility] [address] [id number] [place] [address]- 9507 Mar, [facility] [place] [facility] [address] [id number] [place] [address]- 4710 Mar, [facility] [place] [facility] [address] [id number] [place] [address]- 6312 Mar, [facility] [place] [facility] [address] [id number] [place] [address]- 5948 Mar, [facility] [place] [facility] [address] [facility] [id number] [place] [address]- 2571 Feb, [facility] [place] [facility] [address] [id number] [place] [address]- 7244 19 Feb, 2014 [facility] [place] [facility] [address] [id number] [place] [address]- 7210 18 Feb, 2014 [facility] [place] [facility] [address] [id number] [place] [address]- 9997 18 Feb, 2014 [facility] [place] [facility] [address] [id number] [place] [address]- 5396 16 Feb, 2014 [facility] [place] [facility] [address] [id number] [place] 9923 Feb, [facility] [place] [facility] [address] [id number] [place] [address]- 3598 Feb, [facility] [place] [facility] [address] [id number] [place] [address]- 1134 Feb, [facility] [place] [facility] [address] [id number] [place] 9606 Feb, [facility] [place] [facility] [address] [id number] [place] [address]- 9491 Feb, [facility] [place] [facility] [address] [id number] [place] [address]- 9791 Feb, [facility] [place] [facility] [address] [id number] [place] [address]- 1946 Feb, [facility] [place] [facility] [address] [id number] [place] [address]- 0246 Jan, [facility] [place] [facility] [address] [id number] [place] [address]- 3060 Jan, [facility] [place] [facility] [address] [id number] [place] [address]- 6163 Dec, [facility] [place] [facility] [address] [id number] [place] [address]- 0847 Dec, [facility] [place] [facility] [address] [id number] [place] [address]- 3568 Dec, [facility] [place] [facility] [address] [id number] [place] [address]- 0275 Dec, [facility] [place] [facility] [address] [id number] [place] [address]- 1581 Dec, [facility] [place] [facility] [address] [id number] [place] [address]- 7398 Dec, [facility] [place] [facility] [address] [id number] [place] [address]- 7090 Sep, [facility] [place] [facility] [address] [id number] [place] [address]- 0754 Sep, [facility] [place] [facility] [address] [id number] [place] [address]- 6192 Sep, [facility] [place] [facility] [address] [id number] [place] [address]- 0691 Sep, [facility] [place] [facility] [address] [id number] [place] [address]- 3329 Sep, [facility] [place] [facility] [address] [id number] [place] [address]- 1707 Sep, [facility] [place] [facility] [address] [id number] [place] [address]- 1576 Sep, [facility] [place] [facility] [address] [id number] [place] [address]- 4577 Sep, [facility] [place] [facility] [address] [id number] [place] [address]- 7050 Sep, [facility] [place] [facility] [address] [id number] [place] [address]- 4118 Sep, [facility] [place] [facility] [address] [id number] [place] [address]- 0580 Aug, [facility] [place] [facility] [address] [id number] [place] [address]- 8306 Aug, [facility] [place] [facility] [address] [id number] [place] [address]- 5325 Aug, [facility] [place] [facility] [address] [id number] [place] [address]- 6134 Aug, [facility] [place] [facility] [address] [id number] [place] [address]- 6648 Aug, [facility] [place] [facility] [address] [id number] [place] [address]- 1229 Aug, [facility] [place] [facility] [address] [id number] [place] [address]- 3850 Aug, [facility] [place] [facility] [address] [id number] [place] [address]- 8191 Aug, [facility] [address] [id number] [place] [address]- 1097 Aug, [facility] [place] [facility] [address] [id number] [place] [address]- 6524 Aug, [facility] [address] [id number] [place] [address]- 2828 Aug, [facility] [place] [facility] [address] [id number] [place] [address]- 1713 Aug, [facility] [place] [facility] [address] [id number] [place] [address]- 4282 Aug, [facility] [place] [facility] [address] [id number] [place] [address]- 8917 July, [facility] [place] [facility] [address] [id number] [place] [address]- 8099 July, [facility] [address] [id number] [place] [address]- 6522 July, [facility] [place] [facility] [address] [id number] [place] [address]- 1738 July, [facility] [address] [id number] [place] [address]- 9905 July, [facility] [place] [facility] [address] [id number] [place] [address]- 0005 July, [facility] [place] [facility] [address] [id number] [place] [address]- 9054 July, [facility] [place] [facility] [address] [id number] [place] [address]- 2168 Jun, [facility] [place] [facility] [address] [id number] [place] [address]- 3057 Jun, [facility] [place] [facility] [address] [id number] [place] [address]- 0371 Jun, [facility] [place] [facility] [address] [id number] [place] [address]- 4614 16 Jun, 2013 [facility] [place] [facility] [address] [id number] [place] [address]- 0068 16 Jun, 2013 [facility] [place] [facility] [address] [id number] [place] [address]- 5878 Jun, [facility] [place] [facility] [address] [id number] [place] [address]- 6542 Jun, [facility] [place] [facility] [address] [id number] [place] [address]- 2063 17 May, 2013 [facility] [place] [facility] [address] [id number] [place] [address]- 9993 17 May, 2013 [facility] [place] [facility] [address] [id number] [place] [address]- 0340 14 May, 2013 [facility] [place] [facility] [address] [id number] [place] [address]- 0930 14 May, 2013 [facility] [place] [facility] [address] [id number] [place] [address]- 6496 13 May, 2013 [facility] [place] [facility] [address] [id number] [place] [address]- 0798 13 May, 2013 [facility] [place] [facility] [address] [id number] [place] [address]- 6636 10 May, 2013 [facility] [place] [facility] [address] [id number] [place] [address]- 3576 10 May, 2013 [facility] [place] [facility] [address] [id number] [place] [address]- 7982 07 May, 2013 [facility] [place] [facility] [address] [id number] [place] [address]- 9770 Apr, [facility] [place] [facility] [address] [id number] [place] 7987 Apr, [facility] [place] [facility] [address] [id number] [place] [address]- 2905 18 Apr, 2013 [facility] [place] [facility] [address] [id number] [place] [address]- 1776 Apr, [facility] [place] [facility] [address] [id number] [place] [address]- 4566 Apr, [facility] [place] [facility] [address] [id number] [place] [address]- 0466 Apr, [facility] [place] [facility] [address] [id number] [place] [address]- 4540 Apr, [facility] [place] [facility] [address] [id number] [place] [address]- 1311 Apr, [facility] [place] [facility] [address] [id number] [place] [address]- 4786 Apr, [facility] [place] [facility] [address] [id number] [place] [address]- 7648 Apr, [facility] [place] [facility] [address] [id number] [place] [address]- 8936 Mar, [facility] [place] [facility] [address] [id number] [place] [address]- 3683 Mar, [facility] [place] [facility] [address] [facility] [id number] [place] [address]- 1657 Mar, [facility] [place] [facility] [address] [id number] [place] [address]- 0694 Mar, [facility] [place] [facility] [address] [id number] [place] [address]- 6671 Mar, [facility] [place] [facility] [address] [id number] [place] [address]- 5564 Mar, [facility] [place] [facility] [address] [id number] [place] 8406 Mar, [facility] [place] [facility] [address] [id number] [place] [address]- 5322 Mar, [facility] [place] [facility] [address] [id number] [place] [address]- 6659 Feb, [facility] [place] [facility] [address] [id number] [place] [address]- 5065 Feb, [facility] [place] [facility] [address] [id number] [place] [address]- 3705 Jan, [facility] [place] [facility] [address] [id number] [place] [address]- 3377 Jan, [facility] [place] [facility] [address] [id number] [place] [address]- 4778 Jan, [facility] [place] [facility] [address] [id number] [place] [address]- 1149 Jan, [facility] [place] [facility] [address] [id number] [place] [address]- 1983 Jan, [facility] [place] [facility] [address] [id number], [place] [address]- 0536 Jan, [facility] [place] [facility] [address] [id number] [place] [address]- 3246 Jan, [facility] [place] [facility] [address] [id number], [place] [address]- 0364 05 Jan, 2013 [facility] [place] [facility] [address] [id number], [place] [address]- 1390 Dec, [facility] [place] [facility] [address] [id number], [place] [address]- 9847 10 Dec, 2012 [facility] [place] [facility] [address] [id number] [place] [address]- 2565 10 Dec, 2012 [facility] [place] [facility] [address] [id number], [place] [address]- 7040 20 Nov, 2012 [facility] [place] [facility] [address] [id number] [place] [address]- 9127 13 Nov, 2012 [facility] [place] [facility] [address] [id number] [place] [address]- 4970 12 Nov, 2012 [facility] [address] [id number] [place] [address]- 8777 Nov, [facility] [place] [facility] [address] [id number] [place] [address]- 5855 Nov, [facility] [place] [facility] [address] [id number] [place] [address]- 4041 Nov, [facility] [place] [facility] [address] [id number] [place] [address]- 4775 Oct, [facility] [place] [facility] [address] [id number] [place] [address]- 3662 Oct, [facility] [place] [facility] [address] [id number] [place] [address]- 8892 Sep, [facility] [place] [facility] [address] [id number] [place] [address]- 1795 Sep, [facility] [place] [facility] [address] [id number] [place] [address]- 9640 Sep, [facility] [place] [facility] [address] [id number] [place] [address]- 5109 Sep, [facility] [place] [facility] [address] [id number] [place] [address]- 2862 Sep, [facility] [place] [facility] [address] [id number] [place] [address]- 4936 Sep, [facility] [place] [facility] [address] [id number] [place] [address]- 4241 Sep, [facility] [place] [facility] [address] [id number] [place] [address]- 4233 Aug, [facility] [place] [facility] [address] [id number] [place] [address]- 5128 Aug, [facility] [place] [facility] [address] [id number] [place] [address]- 6695 Aug, [facility] [place] [facility] [address] [id number] [place] [address]- 3856 Aug, [facility] [address] [id number] [place] [address]- 4711 Aug, [facility] [address] [id number] [place] [address]- 6072 Aug, [facility] [address] [id number] [place] [address] July, [facility] [address] [id number] [place] [address] July, [facility] [address] [id number] [place] [address] July, [facility] [address] [id number] [place] [address] July, [facility] [address] [id number] [place] [address] July, [facility] [address] [id number] [place] [address] July, [facility] [address] [id number] [place] [address] Jun, [facility] [address] [id number] [place] [address] Jun, [facility] [address] [id number] [place] [address] Jun, [facility] [address] [id number] [place] [address] Jun, [facility] [place] [facility] [address] [id number] [place] [address] Jun, [facility] [place] [facility] [address] [id number] [place] [address] Jun, [facility] [place] [facility] [address] [id number] [place] [address] Jun, [facility] [address] [id number] [place] [address] May, [facility] [place] [facility] [address] [id number] [place] [address] May, [facility] [place] [facility] [address] [facility] [id number] [place] [address] 26 Apr, 2012 [facility] [place] [facility] [address] [id number] [place] [address] Apr, 2012 [facility] [place] [facility] [address] [id number] [place] [address] Apr, 2012 [facility] [place] [facility] [address] [id number] [place] [address] Apr, 2012 [facility] [address] [facility] [id number] [place] [address] Apr, [facility] [place] [facility] [address] [id number] [place] [address] 08 Apr, 2012 [facility] [place] [facility] [address] [facility] [id number] [place] [address] 07 Apr, 2012 [facility] [place] [facility] [address] [facility] [id number] [place] [address] 07 Apr, 2012 [facility] [place] [facility] [address] [facility] [id number] [place] [address] 06 Apr, 2012 [facility] [place] [facility] [address] [facility] [id number] [place] [address] Apr, 2012 [facility] [place] [facility] [address] [id number] [place] [address] Apr, 2012 [facility] [place] [facility] [address] [facility] [id number] [place] [address] Mar, [facility] [place] [facility] [address] [id number] [place] [address] Mar, [facility] [place] [facility] [address] [id number] [place] [address] Mar, [facility] [address] [id number] [place] [address] Mar, [facility] [address] [id number] [place] [address] Mar, [facility] [address] [id number] [place] [address] Mar, [facility] [address] [id number] [place] [address] Mar, [facility] [address] [id number] [place] [address] Mar, [facility] [address] [id number] [place] [address] Mar, [facility] [address] [id number] [place] [address] Mar, [facility] [address] [id number] [place] [address] Mar, [facility] [address] [id number] [place] [address] Mar, [facility] [address] [id number] [place] [address] Mar, [facility] [address] [id number] [place] [address] Feb, [facility] [address] [id number] [place] [address] Feb, [facility] [address] [id number] [place] [address] Feb, [facility] [address] [id number] [place] [address] Feb, [facility] [address] [id number] [place] [address] Feb, [facility] [place] [facility] [address] [id number] [place] [address] Feb, [facility] [place] [facility] [address] [id number] [place] [address] Feb, [facility] [place] [facility] [address] [id number] [place] [address] Feb, [facility] [place] [facility] [address] [id number] [place] [address] Feb, [facility] [place] [facility] [address] [id number] [place] [address] Feb, [facility] [place] [facility] [address] [id number] [place] [address] Feb, [facility] [place] [facility] [address] [id number] [place] [address] Feb, [facility] [place] [facility] [address] [id number] [place] [address] Feb, [facility] [place] [facility] [address] [id number] [place] [address] Feb, [facility] [place] [facility] [address] [id number] [place] [address] 1547 Feb, [facility] [place] [facility] [address] [id number] [place] [address] 8[address] Jan, [facility] [place] [facility] [address] [id number] [place] [address] 1587 Jan, [facility] [place] [facility] [address] [id number] [place] [address]683 Jan, [facility] [place] [facility] [address] [id number] [place] [address]605 Jan, [facility] [place] [facility] [address] [id number] [place] [address] 9127 Dec, [facility] [place] [facility] [address] [id number] [place] [address] 29 Dec, 2011 [facility] [place] [facility] [address] [id number] [place] [address] Dec, 2011 [facility] [place] [facility] [address] [id number] [place] [address] 4216 Dec, 2011 [facility] [place] [facility] [address] [id number] [place] [address] Dec, 2011 [facility] [place] [facility] [address] [id number] [place] [address]897 Dec, 2011 [facility] [place] [facility] [address] [id number] [place] [address]- [address] Dec, 2011 [facility] [place] [facility] [address] [id number] [place] [address] Dec, 2011 [facility] [place] [facility] [address] [id number] [place] [address] Dec, [facility] [address] [id number] [place] [address] 04 Dec, 2011 [facility] [place] [facility] [address] [id number] [place] [address] 3036 03 Dec, 2011 [facility] [place] [facility] [address] [id number] [place] [address] 6641 25 Sep, 2011 [facility] [place] [facility] [address] [id number] [place] [address]- 2541 24 Sep, 2011 [facility] [place] [facility] [address] [id number] [place] [address] 2549 20 Sep, 2011 [facility] [place] [facility] [address] [id number] [place] [address] 2546 19 Sep, 2011 [facility] [place] [facility] [address] [id number] [place] [address]- 2546 17 Sep, 2011 [facility] [place] [facility] [address] [id number] [place] [address]- 8668 16 Sep, 2011 [facility] [place] [facility] [address] [id number] [place] [address] 9175 14 Sep, 2011 [facility] [place] [facility] [address] [id number] [place] [address]- 7466 13 Sep, 2011 [facility] [place] [facility] [address] [id number] [place] [address]- 1257 12 Sep, 2011 [facility] [place] [facility] [address] [id number] [place] [address] 4429 07 Sep, 2011 [facility] [place] [facility] [address] [id number] [place] [address] 6[address] 06 Sep, 2011 [facility] [place] [facility] [address] [id number] [place] [address] 2533 06 Sep, 2011 [facility] [place] [facility] [address] [id number] [place] [address]- 2682 05 Nov, 2011 [facility] [place] [facility] [address] [id number] [place] [address] 2939 29 Oct, 2011 [facility] [place] [facility] [address] [id number] [place] [address] 0478 29 Oct, 2011 [facility] [place] [facility] [address] [id number] [place] [address] 2448 28 Oct, 2011 [facility] [place] [facility] [address] [id number] [place] [address] 1262 28 Oct, 2011 [facility] [place] [facility] [address] [id number] [place] [address]- 1548 23 Oct, 2011 [facility] [place] [facility] [address] [id number] [place] [address] 6413 Oct, [facility] [place] [facility] [address] [id number] [place] [address] 4025 Oct, [facility] [place] [facility] [address] [id number] [place] [address]109 16 Oct, 2011 [facility] [place] [facility] [address] [id number] [place] [address] 7843 Oct, [facility] [address] [id number] [place] [address] 2494 Oct, [facility] [place] [facility] [address] [id number] [place] [address] 0511 Oct, [facility] [place] [facility] [address] [id number] [place] [address] 6973 Sep, [facility] [place] [facility] [address] [id number] [place] [address] 6849 Sep, [facility] [place] [facility] [address] [id number] [place] [address] 6231 Sep, [facility] [place] [facility] [address] [id number] [place] [address]290 Sep, [facility] [address] [id number] [place] [address] 2540 Sep, [facility] [place] [facility] [address] [id number] [place] [address]- 9453 Sep, [facility] [place] [facility] [address] [id number] [place] [address]- 5472 Aug, [facility] [place] [facility] [address] [id number] [place] [address] 5488 July, [facility] [place] [facility] [address] [id number] [place] [address] 4394 July, [facility] [place] [facility] [address] [id number] [place] [address] 2043 Jun, [facility] [place] [facility] [address] [id number] [place] [address] 9126 Jun, [facility] [place] [facility] [address] [id number] [place] [address] 1117 Jun, [facility] [place] [facility] [address] [id number] [place] [address]- 8556 Jun, [facility] [place] [facility] [address] [id number] [place] [address]- 6662 10 Jun, 2011 [facility] [place] [facility] [address] [id number] [place] [address]- 5655 10 Jun, 2011 [facility] [place] [facility] [address] [id number] [place] [address]- 2726 09 Jun, 2011 [facility] [place] [facility] [address] [id number] [place] [address]- 3559 08 Jun, 2011 [facility] [place] [facility] [address] [id number] [place] [address]- 7881 Jun, [facility] [place] [facility] [address] [id number] [place] [address]- 7664 Jun, [facility] [place] [facility] [address] [id number] [place] [address]- 9826 Jun, [facility] [place] [facility] [address] [id number] [place] [address]- 9156 May, [facility] [place] [facility] [address] [id number] [place] [address]- 6944 16 May, 2011 [facility] [place] [facility] [address] [id number] [place] [address]- 2480 14 May, 2011 [facility] [place] [facility] [address] [id number] [place] [address]- 6366 06 May, 2011 [facility] [place] [facility] [address] [id number] [place] [address]- 9062 Apr, [facility] [place] [facility] [address] [id number] [place] [address]- 5349 28 Apr, 2011 [facility] [place] [facility] [address] [id number] [place] [address]- 2638 27 Apr, 2011 [facility] [place] [facility] [address] [id number] [place] [address]- 2726 23 Apr, 2011 [facility] [place] [facility] [address] [id number] [place] [address]- 8036 Apr, [facility] [address] [id number] [place] [address]- 9167 Apr, [facility] [address] [id number] [place] [address]- 1609 Apr, [facility] [address] [id number] [place] [address]- 7870 Apr, [facility] [address] [id number] [place] [address]- 1838 Mar, [facility] [address] [id number] [place] [address]- 9932 Mar, [facility] [address] [id number] [place] [address]- 3596 Mar, [facility] [address] [id number] [place] [address]- 5343 Mar, [facility] [address] [id number] [place] [address]- 6280 Mar, [facility] [address] [id number] [place] [address]- 9176 Mar, [facility] [address] [id number] [place] [address]- 9435 Mar, [facility] [address] [id number] [place] [address]- 4680 Mar, [facility] [place] [facility] [address] [id number] [place] [address]- 2342 Mar, [facility] [place] [facility] [address] [id number] [place] [address]- 4642 Mar, [facility] [place] [facility] [address] [id number] [place] [address]- 3538 Mar, [facility] [address] [id number] [place] [address]- 8339 Mar, [facility] [place] [facility] [address] [id number] [place] [address]- 5944 Mar, [facility] [place] [facility] [address] [id number] [place] [address]- 1665 Mar, [facility] [place] [facility] [address] [id number] [place] [address]- 4538 Mar, [facility] [place] [facility] [address] [id number] [place] [address]- 0665 Mar, [facility] [place] [facility] [address] [id number] [place] [address]- 7990 Feb, [facility] [place] [facility] [address] [id number] [place] [address]- 5054 Feb, [facility] [place] [facility] [address] [id number] [place] [address]- 5203 Feb, [facility] [place] [facility] [address] [id number] [place] [address]- 2182 Jan, [facility] [place] [facility] [address] [id number] [place] [address]- 7550 Jan, [facility] [place] [facility] [address] [id number] [place] [address]- 2545 Jan, [facility] [place] [facility] [address] [id number] [place] [address]- 8651 Dec, [facility] [place] [facility] [address] [id number] [place] [address]- 7788 Dec, [facility] [place] [facility] [address] [id number] [place] [address]- 6895 Nov, [facility] [place] [facility] [address] [id number] [place] [address]- 3459 Oct, [facility] [place] [facility] [address] [id number] [place] [address]- 1169 Oct, [facility] [place] [facility] [address] [id number] [place] [address]- 3825 Oct, [facility] [address] [facility] [id number] [place] [address]- 2546 Sep, [facility] [address] [facility] [id number] [address] Apr, [facility] [address] [facility] [id number] [place] [address]- 2546 Feb, [facility] [address] [facility] [id number] [address]46 Jan, IMMUNIZATIONS No Known Immunizations SOCIAL HISTORY Never Assessed REASON FOR VISIT EMR-[facility] PLAN OF CARE VITAL SIGNS MEDICATIONS No [...] 2/2 Benzos OD, pneumonia MRSA, MAYRA, Hypokalemia-- [facility] 12/20/2015 Hospitalization History COPD exacerbation, Asthma-[facility] 09/21/16 Hospitalization History COPD-[facility] 12/30/2016 Hospitalization History [facility]NE and dagoberto for inpatient-last around 2006 or so. Hospitalization History [facility] for COPD x2 Mar 2017 Hospitalization History Upper GI bleed at apr 2017 Hospitalization History [facility]- COPD Exacerbation, diarrhea 05/23/2017 Hospitalization History COPD exacerbation-[facility] 06/13/17 Hospitalization History CHF 09/09/2017 Hospitalization History COPD-UTI--[facility] 11/2017
--- OUTSIDE RECORDS SUMMARY | 2018-06-30 11:29 | XMS REPORT ---
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 Active Problem TMJ (sprain of temporomandibular joint) S03.4XXA Active 64683766 Problem Migraine G43.909 Active 15435179 Problem Memory loss R41.3 Active 64959081 Problem Chronic constipation K59.09 Active 256016949 Problem Bipolar disorder with depression F31.30 Active 40485086 Problem Bipolar disorder, unspecified F31.9 Active 87892445 Problem Migraine without aura and without status migrainosus, not intractable G43.009 Active 916285010 Problem Chronic bronchitis, unspecified chronic bronchitis type J42 Active 84752651 Problem Methamphetamine use disorder, moderate, 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 Active 77439202 Problem Acute on chronic systolic congestive heart failure I50.23 Active 084578058 Problem Other emphysema J43.8 Active 01428650 Problem COPD exacerbation J44.1 Active 382307058 Problem Generalized anxiety disorder F41.1 Active 78655596 Problem Examination of eyes and vision V72.0 Active 734360482 Problem Diabetes E11.9 Active 252369109 Problem Intractable cyclical vomiting with nausea G43.A1 Active 77147053 Problem Anxiety F41.9 Active 60826887 Problem Chronic obstructive pulmonary disease, unspecified COPD type J44.9 Active 58421817 ALLERGIES No Information ENCOUNTERS Encounter Location Date Diagnosis [facility] [address], [place] [address] May, Chronic obstructive pulmonary disease with acute exacerbation J44.1 and Tobacco abuse Z72.0 [facility] [address], [place] [address] May, Chronic obstructive pulmonary disease with acute exacerbation J44.1 [facility] [address], [place] [address] Apr, [facility] [id number] [place] [address] 09315- 6737 Apr, [facility] [id number] [place] [address] 02882- 8338 Feb, Diabetes E11.9 ; Chronic obstructive pulmonary disease with (acute) exacerbation J44.1 and Encounter for immunization Z23 [facility] [id number] [place] [address] 30767- 5625 Jan, COPD exacerbation J44.1 [facility] [id number] [place] [address] 85500- 6994 Jan, Dental abscess K04.7 [facility] [id number] [place] [address] 32908- 5545 Jan, COPD exacerbation J44.1 and Acute on chronic systolic congestive heart failure I50.23 [facility] [id number] [place] [address] 03797- 2215 Dec, [facility] [id number] [place] [address] 75066- 7206 Dec, [facility] [id number] [place] [address] 33604- 9898 Nov, [facility] [id number] [place] [address] 62000- 2777 Nov, COPD with exacerbation J44.1 and Urinary tract infection without hematuria, site unspecified N39.0 [facility] [id number] [place] [address] 11671- 3946 Nov, Chronic obstructive pulmonary disease, unspecified COPD type J44.9 [facility] [id number] [place] [address] 91850- 2544 Oct, [facility] [id number] [place] [address] 43451- 7852 Oct, [facility] [address], [place] [address] Oct, [facility] [address], [place] [address] 9[address] Oct, [facility] [address], [place] [address]- 2669 Oct, Thrush B37.0 [facility] [address] [place] [address] 06805- 4463 Sep, COPD with exacerbation J44.1 and Anxiety F41.9 [facility] [address], [place] [address] 18[address] Sep, [facility] [address], [place] [address]- 4415 Sep, [facility] [address], [place] [address]- 2368 Sep, [facility] [address], [place] [address] 3614 Sep, Acute congestive heart failure, unspecified heart failure type I50.9 and Anxiety disorder, unspecified F41.9 [facility] [address], [place] [address] 7739 Sep, Heart failure, unspecified HF chronicity, unspecified heart failure type I50.9 [facility] [address], [place] [address]- 8756 Sep, [facility] [address], [place] [address]- 1140 Aug, Chronic obstructive pulmonary disease with acute exacerbation J44.1 [facility] [address], [place] [address]- 9589 Aug, [facility] [address], [place] [address] 4938 Aug, [facility] [address], [place] [address]- 0086 July, [facility] [id number] [place] [address] 51467- 4724 July, [facility] [id number] [place] [address] 86320- 7425 July, Diabetes E11.9 and Chronic obstructive pulmonary disease with acute exacerbation J44.1 [facility] [id number] [place] [address] 43555- 7043 Jun, Chronic obstructive pulmonary disease with acute exacerbation J44.1 ; Diabetes E11.9 and Tobacco abuse Z72.0 [facility] [id number] [place] [address] 33607- 2537 Jun, [facility] [id number] [place] [address] 83711- 2402 Jun, [facility] [id number] [place] [address] 21693- 1416 May, [facility] [id number] [place] [address] 97236- 3164 May, [facility] [address], [place] [address] May, [facility] [address], [place] [address]- 3605 16 May, 2017 [facility] [id number] [place] [address] 20562- 7892 15 May, 2017 [facility] [address] [place] [address] 55293- 6046 14 May, 2017 Diarrhea, unspecified type R19.7 and Intractable cyclical vomiting with nausea G43.A1 [facility] [address], [place] [address]- 6702 May, [facility] [id number] [place] [address] 06829- 4004 May, [facility] [id number] [place] [address] 66210- 5345 Apr, COPD exacerbation J44.1 ; Esophageal candidiasis B37.81 ; Other acute gastritis with hemorrhage K29.01 and Acute posthemorrhagic anemia D62 [facility] [id number] [place] [address] 13684- 5189 Apr, Viral illness B34.9 and COPD exacerbation J44.1 [facility] [id number] [place] [address] 17217 -0220 Apr, Shortness of breath R06.02 and Pneumonia of both lower lobes due to infectious organism J18.9 [facility] [id number] [place] [address] 71238 -0131 Mar, COPD with acute exacerbation J44.1 [facility] [address] 79182- 2956 Mar, Chronic obstructive pulmonary disease with acute exacerbation J44.1 and Diabetes E11.9 [facility] [id number] [place] [address] 83417- 4654 Mar, [facility] [id number] [place] [address] 86014- 5511 Mar, [facility] [id number] [place] [address] 82914 -1495 Mar, COPD exacerbation J44.1 [facility] [id number] [place] [address] 44683- 1665 Mar, [facility] [id number] [place] [address] 72273- 6068 Mar, Migraine G43.909 ; Hypokalemia E87.6 and Type 2 diabetes mellitus without complications E11.9 [facility] [id number] [place] [address] 68628- 8624 Feb, [facility] [id number] [place] [address] 73876- 9077 Feb, [facility] [id number] [place] [address] 11190- 6639 Feb, Methamphetamine use disorder, moderate, 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 ; Major depressive disorder, recurrent, moderate F33.1 ; Anxiety disorder, unspecified F41.9 and Tobacco abuse Z72.0 [facility] [id number] [place] [address] 20962- 6706 Jan, Major depressive disorder, recurrent, moderate F33.1 [facility] [id number] [place] [address] 70383- 7243 Jan, [facility] [id number] [place] [address] 67809- 8725 Jan, [facility] [id number] [place] [address] 57541- 5571 Jan, Major depressive disorder, recurrent, moderate F33.1 [facility] [id number] [place] [address] 81964- 7759 Jan, Major depressive disorder, recurrent, moderate F33.1 ; Anxiety disorder, unspecified F41.9 ; Methamphetamine use disorder, moderate, 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 and Tobacco abuse Z72.0 [facility] [id number] [place] [address] 54709- 0033 Jan, [facility] [id number] [place] [address] 09131- 7557 Jan, Chronic obstructive pulmonary disease with acute exacerbation J44.1 and Diabetes E11.9 [facility] [id number] [place] [address] 91320- 1225 Jan, [facility] [id number] [place] [address] 03431- 1338 Jan, [facility] [id number] [place] [address] 99885- 3760 24 Oct, 2017 Acute respiratory failure with hypoxia J96.01 ; Chronic bronchitis, unspecified chronic bronchitis type J42 and Tobacco use Z72.0 [facility] [id number] [place] [address] 17405- 0208 Dec, [facility] [address] [place] [address] [id number] Nov, Dental caries K02.9 and Dental examination Z01.20 [facility] [id number] [place] [address] 76113- 4691 Nov, Major depressive disorder, recurrent, moderate F33.1 ; Anxiety disorder, unspecified F41.9 and 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 [facility] [id number] [place] [address] [id number] Oct, Dental examination Z01.20 [facility] [id number] [place] [address] 51463- 6745 Oct, [facility] [id number] [place] [address] 69466- 9936 Oct, Diabetes E11.9 and Thrush B37.0 [facility] [id number] [place] [address] 69575- 0261 Oct, [facility] [id number] [place] [address] 03211- 6926 Oct, [facility] [id number] [place] [address] 49340- 1099 Oct, [facility] [id number] [place] [address] 70984- 0601 Sep, Major depressive disorder, recurrent, moderate F33.1 ; Anxiety disorder, unspecified F41.9 and Bipolar disorder, unspecified F31.9 [facility] [address] [place] [address] 89418- 7107 Sep, Acute exacerbation of chronic obstructive pulmonary disease (COPD) J44.1 and Migraine G43.909 [facility] [id number], [place] [address]- 4871 Sep, [facility] [place] [id number] [id number] Sep, [facility] [address], [place] [address]- 1220 Sep, Acute exacerbation of chronic obstructive pulmonary disease (COPD) J44.1 [facility] [address], [place] [address] -2655 Sep, Acute exacerbation of chronic obstructive pulmonary disease (COPD) J44.1 [facility] [address], [place] [address]- 0610 Aug, [facility] [address], [place] [address]- 2540 Aug, Major depressive disorder, recurrent, moderate F33.1 ; Anxiety disorder, unspecified F41.9 and Other 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 [facility] [address], [place] [address]- 6405 Aug, Wheezing R06.2 ; Non morbid obesity due to excess calories E66.09 ; Migraine without aura and without status migrainosus, not intractable G43.009 and Tobacco abuse Z72.0 [facility] [id number] [id number] 14 Aug, 2016 Encounter for dental examination Z01.20 [facility] [address], [place] [address]- 3485 02 Aug, 2016 Major depressive disorder, recurrent, moderate F33.1 ; Anxiety disorder, unspecified F41.9 and Other stimulant dependence with unspecified stimulant-induced disorder 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 [facility] [address], [place] [address]- 7383 July, [facility] [address], [place] [address]- 7674 July, [facility] [id number] [address]- 7395 July, [facility] [id number] [place] [address] 91292- 2675 July, Diabetes E11.9 [facility] [id number] [place] [address] 20659- 8196 Jun, Major depressive disorder, recurrent, moderate F33.1 [facility] [id number] [place] [address] 05703- 0129 Jun, Major depressive disorder, recurrent, moderate F33.1 ; Other 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 ; Generalized anxiety disorder F41.1 and Bipolar disorder, unspecified F31.9 [facility] [id number] [place] [address] 41713- 0992 Jun, Diabetes E11.9 ; Migraine G43.909 ; Thrush B37.0 and Wheezing R06.2 [facility] [address] [id number] Jun, Dental examination Z01.20 [facility] [id number] [place] [address] 31262- 1631 Jun, [facility] [id number] [place] [address] 93283- 1062 Jun, Major depressive disorder, recurrent, moderate F33.1 ; Anxiety disorder, unspecified F41.9 and 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 [facility] [address] [place] [address] 23476- 6500 Jun, [facility] [id number] [place] [address] 18071- 1085 Jun, Wheezing R06.2 [facility] [address] [id number] Jun, Dental caries K02.9 [facility] [id number] [place] [address] 27456- 5073 Jun, Major depressive disorder, recurrent, moderate F33.1 ; Anxiety disorder, unspecified F41.9 and 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 [facility] [id number] [place] [address] 05668- 7915 Jun, RLQ abdominal pain R10.31 ; Diabetes E11.9 ; Obesity, unspecified obesity severity, unspecified obesity type E66.9 ; Wheezing R06.2 and Abnormal urinalysis R82.90 [facility] [address] 39746- 1828 May, [facility] [address] 47754- 8473 May, Well woman exam Z01.419 ; Breast cancer screening Z12.39 ; Cervical cancer screening Z12.4 ; Urinary frequency R35.0 ; Edema, unspecified type R60.9 and Chronic constipation K59.09 [facility] [address] 39864- 9287 May, Major depressive disorder, recurrent, moderate F33.1 ; Anxiety disorder, unspecified F41.9 and 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 [facility] [id number] [place] [address] [id number] May, Dental examination Z01.20 [facility] [id number] [place] [address] 18692- 8520 May, [facility] [address] 01353- 9632 May, [facility] [address] 32217- 7429 May, Chronic constipation K59.09 [facility] [id number] [place] [address] 59950- 3692 Apr, [facility] [id number] [place] [address] 72408- 6599 Apr, Major depressive disorder, recurrent, moderate F33.1 ; Anxiety disorder, unspecified F41.9 and 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 [facility] [id number] [place] [address] 01470- 8402 Apr, [facility] [id number] [place] [address] 14257- 2685 Mar, Major depressive disorder, recurrent, moderate F33.1 [facility] [id number] [place] [address] 38680- 6473 Mar, Major depressive disorder, recurrent, moderate F33.1 ; Generalized anxiety disorder F41.1 and Bipolar I disorder, most recent episode depressed with anxious distress F31.30 [facility] [id number] [place] [address] 68915- 7032 Mar, Diabetes E11.9 ; Non morbid obesity due to excess calories E66.09 ; Breast cancer screening Z12.39 and Encounter for immunization Z23 [facility] [id number] [place] [address] 93344- 4602 Mar, Major depressive disorder, recurrent, moderate F33.1 ; Anxiety disorder, unspecified F41.9 and 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 [facility] [address] [place] [address] 17349- 9475 Mar, [facility] [id number] [place] [address] 33261- 6124 Feb, Major depressive disorder, recurrent, moderate F33.1 ; Anxiety disorder, unspecified F41.9 and 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 [facility] [id number] [place] [address] 18885- 7755 Feb, [facility] [id number] [place] [address] 41377- 8806 Feb, [facility] [id number] [place] [address] 48687- 0962 Jan, Major depressive disorder, recurrent, moderate F33.1 ; Generalized anxiety disorder F41.1 and Bipolar disorder, current episode depressed, severe, without psychotic features F31.4 [facility] [address] [place] [address] 85442- 7171 Jan, Major depressive disorder, recurrent, moderate F33.1 ; Anxiety disorder, unspecified F41.9 and 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 [facility] [id number] [place] [address] 88913- 4731 Jan, Bronchitis J40 [facility] [address] 04213- 1858 Jan, [facility] [id number] [place] [address] 65385- 1508 Jan, [facility] [id number] [place] [address] 27959- 8537 Jan, Elbow injury, right, initial encounter S59.901A ; Multiple contusions T14.8 and Cervical strain, acute, initial encounter S16.1XXA [facility] [id number] [place] [address] 16581- 2175 Dec, Major depressive disorder, recurrent, moderate F33.1 ; Generalized anxiety disorder F41.1 and Bipolar disorder with depression F31.30 [facility] [id number] [place] [address] 98063- 3152 Dec, [facility] [id number] [place] [address] 56163- 7837 Dec, [facility] [id number] [place] [address] 84714- 6089 Dec, [facility] [id number] [place] [address] 62074- 5046 Dec, [facility] [id number] [place] [address] 11478- 8612 Dec, Yeast infection B37.9 [facility] [id number] [address]- 6273 Dec, Pneumonia of both lungs due to methicillin resistant Staphylococcus aureus (MRSA), unspecified part of lung J15.212 and Benzodiazepine overdose, accidental or unintentional, subsequent encounter T42.4X1D [facility] [address], [place] [address]- 7091 Dec, [facility] [id number] [place] [address] 49457- 7022 Dec, [facility] [id number] [place] [address] 64551- 4660 Dec, Knee pain, left M25.562 and Edema, unspecified type R60.9 [facility] [id number] [place] [address] 31925- 2122 Dec, [facility] [id number] [place] [address] 30846- 1285 Dec, Anxiety disorder, unspecified F41.9 and Bipolar disorder, unspecified F31.9 [facility] [address] [place] [address] 23601- 5901 Nov, Major depressive disorder, recurrent, moderate F33.1 ; Anxiety disorder, unspecified F41.9 and 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 [facility] [address], [place] [address]- 5582 Nov, [facility] [address] [place] [address] 94723- 1108 Nov, Migraine without aura and without status migrainosus, not intractable G43.009 [facility] [address] [place] [address] 27434- 1794 Nov, Migraine G43.909 [facility] [address] [place] [address] 07432- 0551 Nov, [facility] [address] [place] [address]- 5300 Nov, Major depressive disorder, recurrent, moderate F33.1 ; Anxiety disorder, unspecified F41.9 and 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 [facility] [id number] [place] [address] 06721- 0694 Oct, Chronic constipation K59.09 and Obesity, unspecified obesity severity, unspecified obesity type E66.9 [facility] [id number] [place] [address] 87616- 1651 Oct, Obesity, unspecified obesity severity, unspecified obesity type E66.9 ; Chronic constipation K59.09 and Anxiety disorder, unspecified F41.9 [facility] [id number] [place] [address] 67327- 5755 Oct, [facility] [id number] [place] [address] 96137- 0579 Sep, Diabetes E11.9 ; Edema, unspecified type R60.9 ; Varicose vein of leg I83.90 and Obesity, unspecified obesity severity, unspecified obesity type E66.9 [facility] [id number] [place] [address] 48836- 9587 Sep, Edema, unspecified type R60.9 ; Diabetes E11.9 and Knee pain , left M25.562 [facility] [id number] [place] [address] 80348- 2696 Sep, [facility] [id number] [place] [address] [id number]- [id number] Sep, [id number] [place] [address] [id number]- 4658 Sep, Major depressive disorder, recurrent, moderate F33.1 ; Generalized anxiety disorder F41.1 and Bipolar disorder, unspecified F31.9 [id number] [place] [address] [id number]- 0549 Aug, Chondromalacia of left knee M94.262 [facility] [id number] [place] [address] [id number] [phone] 24 Aug, 2015 Major depressive disorder, recurrent, moderate F33.1 ; Anxiety disorder, unspecified F41.9 and 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 [facility] [id number] [place] [address] [id number] [id number] Aug, [facility] [id number] [place] [address] [id number]- [id number] Aug, Osteoarthritis of left knee M17.9 [facility] [id number] [place] [address] 78010- 6020 Aug, [facility] [id number] [place] [address] 90448- 1801 July, Major depressive disorder, recurrent, moderate F33.1 ; Anxiety disorder, unspecified F41.9 and 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 [facility] [id number] [place] [address] 55678- 5810 July, [facility] [id number] [place] [address] 86391- 6259 July, Chronic constipation K59.09 [facility] [id number] [place] [address] 21271- 0586 Jun, [facility] [id number] [place] [address] 79758- 3181 15 Jun, 2015 [facility] [id number] [place] [address] 45355- 5258 14 Jun, 2015 Osteoarthritis of left knee M17.9 [facility] [id number] [place] [address] 33948- 5375 Jun, [facility] [id number] [place] [address] 83301- 6309 Jun, Generalized anxiety disorder F41.1 ; Bipolar disorder, unspecified F31.9 and Major depressive disorder, recurrent, moderate F33.1 [address] [address] 89658- 0775 Jun, Migraine G43.909 [address] [address] 46020- 5497 Jun, Left knee pain M25.562 ; Chronic constipation K59.09 ; Dry mouth R68.2 ; Yeast vaginitis B37.3 and Memory loss R41.3 [address] [address] 63457- 6901 Jun, [place] [address] 19552- 7927 May, [place] [address] 23645- 3285 May, [address] [address] 61405- 8012 May, [address] [address] 10424- 6729 May, [place] [address] 10568- 1016 May, Acute bronchitis with COPD J44.0 ; Knee pain, left M25.562 and Encounter for tobacco use cessation counseling Z71.6 [place] [address] 56464- 6802 May, [place] [address] 27937- 4412 Apr, Diabetes E11.9 ; TMJ (sprain of temporomandibular joint) S03.4XXA ; Tobacco abuse Z72.0 ; Migraine G43.909 and Anxiety F41.9 [facility] [facility] [id number] [place] [address] 57837- 5291 Apr, Generalized anxiety disorder F41.1 and Bipolar disorder, unspecified F31.9 [address] [address] [address] 9256 24 Apr, 2015 Major depressive disorder, recurrent, moderate F33.1 ; Anxiety disorder, unspecified F41.9 and 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 [facility] [address] [address]- 8296 Apr, [facility] [id number] [place] [address] 11770- 3726 Mar, [facility] [id number] [place] [address] 79006- 6776 Feb, [facility] [id number] [place] [address] 71563- 3027 Feb, Major depressive disorder, recurrent, moderate F33.1 ; Anxiety disorder, unspecified F41.9 and 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 [facility] [id number] [place] [address] 95663- 4586 Feb, [facility] [id number] [place] [address] 79701- 4621 Feb, Generalized anxiety disorder F41.1 and Bipolar disorder, unspecified F31.9 [facility] [address] [address]- 7834 30 Jan, 2015 [facility] [address] [address]- 1526 18 Jan, 2015 [facility] [address] [address]- 1299 Jan, Bipolar disorder, unspecified F31.9 and Generalized anxiety disorder F41.1 [facility] [address] [address]- 7530 14 Dec, 2014 [facility] [address] [address]- 7259 Dec, Bipolar disorder, unspecified F31.9 and Generalized anxiety disorder F41.1 [facility] [id number] [place] [address] 43408- 8559 Dec, Generalized anxiety disorder F41.1 and Major depressive disorder, recurrent, moderate F33.1 [facility] [id number] [place] [address] 93346- 6036 Oct, Headache 784.0 ; Cough 786.2 ; Vomiting and diarrhea 787.03 and Dysuria 788.1 [facility] [id number] [place] [address] 91276- 9947 Aug, [facility] [address] 97278- 6886 Aug, Headache 784.0 and Shortness of breath 786.05 [facility] [id number] [place] [address] 51114- 6148 Aug, [facility] [id number] [place] [address] 72808- 0500 Aug, Migraine 346.90 [facility] [id number] [place] [address] 80651- 0218 Jun, [facility] [id number] [place] [address] 16736- 8297 Jun, [facility] [id number] [place] [address] 64062- 1734 May, [facility] [id number] [place] [address] 92298- 1904 May, [facility] [id number] [place] [address] 59417- 4471 May, [facility] [id number] [place] [address] 51686- 3627 May, [facility] [id number] [place] [address] 91224- 3240 May, [facility] [id number] [place] [address] 99812- 6495 May, [facility] [place] [facility] [address] [id number] [place] [address]- 4540 Apr, 2014 [facility] [place] [facility] [address] [id number] [place] 6856 Apr, 2014 [facility] [place] [facility] [address] [id number] [place] [address]- 0996 Apr, 2014 [facility] [place] [facility] [address] [id number] [place] [address]- 0507 Apr, [facility] [place] [facility] [address] [id number] [place] [address]- 5812 Apr, [facility] [place] [facility] [address] [id number] [place] [address]- 7299 Mar, [facility] [place] [facility] [address] [id number] [place] [address]- 4597 Mar, [facility] [place] [facility] [address] [id number] [place] [address]- 5364 Mar, [facility] [place] [facility] [address] [id number] [place] [address]- 7128 Mar, [facility] [place] [facility] [address] [facility] [id number] [place] [address]- 6729 Feb, [facility] [place] [facility] [address] [id number] [place] [address]- 2420 19 Feb, 2014 [facility] [place] [facility] [address] [id number] [place] [address]- 9159 18 Feb, 2014 [facility] [place] [facility] [address] [id number] [place] [address]- 5980 18 Feb, 2014 [facility] [place] [facility] [address] [id number] [place] [address]- 2691 16 Feb, 2014 [facility] [place] [facility] [address] [id number] [place] 7016 Feb, [facility] [place] [facility] [address] [id number] [place] [address]- 3313 Feb, [facility] [place] [facility] [address] [id number] [place] [address]- 8888 Feb, [facility] [place] [facility] [address] [id number] [place] 1905 Feb, [facility] [place] [facility] [address] [id number] [place] [address]- 3247 Feb, [facility] [place] [facility] [address] [id number] [place] [address]- 1122 Feb, [facility] [place] [facility] [address] [id number] [place] [address]- 4008 Feb, [facility] [place] [facility] [address] [id number] [place] [address]- 5344 Jan, [facility] [place] [facility] [address] [id number] [place] [address]- 9651 Jan, [facility] [place] [facility] [address] [id number] [place] [address]- 5263 Dec, [facility] [place] [facility] [address] [id number] [place] [address]- 8900 Dec, [facility] [place] [facility] [address] [id number] [place] [address]- 3217 Dec, [facility] [place] [facility] [address] [id number] [place] [address]- 4868 Dec, [facility] [place] [facility] [address] [id number] [place] [address]- 8016 Dec, [facility] [place] [facility] [address] [id number] [place] [address]- 2336 Dec, [facility] [place] [facility] [address] [id number] [place] [address]- 7667 Sep, [facility] [place] [facility] [address] [id number] [place] [address]- 5403 Sep, [facility] [place] [facility] [address] [id number] [place] [address]- 1384 Sep, [facility] [place] [facility] [address] [id number] [place] [address]- 9463 Sep, [facility] [place] [facility] [address] [id number] [place] [address]- 0378 Sep, [facility] [place] [facility] [address] [id number] [place] [address]- 1646 Sep, [facility] [place] [facility] [address] [id number] [place] [address]- 8803 Sep, [facility] [place] [facility] [address] [id number] [place] [address]- 3825 Sep, [facility] [place] [facility] [address] [id number] [place] [address]- 5218 Sep, [facility] [place] [facility] [address] [id number] [place] [address]- 7283 Sep, [facility] [place] [facility] [address] [id number] [place] [address]- 3068 Aug, [facility] [place] [facility] [address] [id number] [place] [address]- 4326 Aug, [facility] [place] [facility] [address] [id number] [place] [address]- 5866 Aug, [facility] [place] [facility] [address] [id number] [place] [address]- 1806 Aug, [facility] [place] [facility] [address] [id number] [place] [address]- 9175 Aug, [facility] [place] [facility] [address] [id number] [place] [address]- 3499 Aug, [facility] [place] [facility] [address] [id number] [place] [address]- 7174 Aug, [facility] [place] [facility] [address] [id number] [place] [address]- 1624 Aug, [facility] [address] [id number] [place] [address]- 4427 Aug, [facility] [place] [facility] [address] [id number] [place] [address]- 7520 Aug, [facility] [address] [id number] [place] [address]- 3165 Aug, [facility] [place] [facility] [address] [id number] [place] [address]- 0892 Aug, [facility] [place] [facility] [address] [id number] [place] [address]- 5611 Aug, [facility] [place] [facility] [address] [id number] [place] [address]- 1967 July, [facility] [place] [facility] [address] [id number] [place] [address]- 0223 July, [facility] [address] [id number] [place] [address]- 0509 July, [facility] [place] [facility] [address] [id number] [place] [address]- 8881 July, [facility] [address] [id number] [place] [address]- 3683 July, [facility] [place] [facility] [address] [id number] [place] [address]- 8041 July, [facility] [place] [facility] [address] [id number] [place] [address]- 1671 July, [facility] [place] [facility] [address] [id number] [place] [address]- 5778 Jun, [facility] [place] [facility] [address] [id number] [place] [address]- 2711 Jun, [facility] [place] [facility] [address] [id number] [place] [address]- 2802 Jun, [facility] [place] [facility] [address] [id number] [place] [address]- 8437 16 Jun, 2013 [facility] [place] [facility] [address] [id number] [place] [address]- 9387 16 Jun, 2013 [facility] [place] [facility] [address] [id number] [place] [address]- 0426 Jun, [facility] [place] [facility] [address] [id number] [place] [address]- 5830 Jun, [facility] [place] [facility] [address] [id number] [place] [address]- 3302 17 May, 2013 [facility] [place] [facility] [address] [id number] [place] [address]- 8223 17 May, 2013 [facility] [place] [facility] [address] [id number] [place] [address]- 3654 14 May, 2013 [facility] [place] [facility] [address] [id number] [place] [address]- 4418 14 May, 2013 [facility] [place] [facility] [address] [id number] [place] [address]- 0552 13 May, 2013 [facility] [place] [facility] [address] [id number] [place] [address]- 9753 13 May, 2013 [facility] [place] [facility] [address] [id number] [place] [address]- 1428 10 May, 2013 [facility] [place] [facility] [address] [id number] [place] [address]- 7352 10 May, 2013 [facility] [place] [facility] [address] [id number] [place] [address]- 6324 07 May, 2013 [facility] [place] [facility] [address] [id number] [place] [address]- 0240 Apr, [facility] [place] [facility] [address] [id number] [place] 1802 Apr, [facility] [place] [facility] [address] [id number] [place] [address]- 0015 18 Apr, 2013 [facility] [place] [facility] [address] [id number] [place] [address]- 4126 Apr, [facility] [place] [facility] [address] [id number] [place] [address]- 7116 Apr, [facility] [place] [facility] [address] [id number] [place] [address]- 3736 Apr, [facility] [place] [facility] [address] [id number] [place] [address]- 5244 Apr, [facility] [place] [facility] [address] [id number] [place] [address]- 5034 Apr, [facility] [place] [facility] [address] [id number] [place] [address]- 9544 Apr, [facility] [place] [facility] [address] [id number] [place] [address]- 5355 Apr, [facility] [place] [facility] [address] [id number] [place] [address]- 3549 Mar, [facility] [place] [facility] [address] [id number] [place] [address]- 0968 Mar, [facility] [place] [facility] [address] [facility] [id number] [place] [address]- 8233 Mar, [facility] [place] [facility] [address] [id number] [place] [address]- 3882 Mar, [facility] [place] [facility] [address] [id number] [place] [address]- 3444 Mar, [facility] [place] [facility] [address] [id number] [place] [address]- 2497 Mar, [facility] [place] [facility] [address] [id number] [place] 6496 Mar, [facility] [place] [facility] [address] [id number] [place] [address]- 2582 Mar, [facility] [place] [facility] [address] [id number] [place] [address]- 8993 Feb, [facility] [place] [facility] [address] [id number] [place] [address]- 5414 Feb, [facility] [place] [facility] [address] [id number] [place] [address]- 8484 Jan, [facility] [place] [facility] [address] [id number] [place] [address]- 5882 Jan, [facility] [place] [facility] [address] [id number] [place] [address]- 1805 Jan, [facility] [place] [facility] [address] [id number] [place] [address]- 1502 Jan, [facility] [place] [facility] [address] [id number] [place] [address]- 7371 Jan, [facility] [place] [facility] [address] [id number], [place] [address]- 4090 Jan, [facility] [place] [facility] [address] [id number] [place] [address]- 7962 Jan, [facility] [place] [facility] [address] [id number], [place] [address]- 2362 05 Jan, 2013 [facility] [place] [facility] [address] [id number], [place] [address]- 4066 Dec, [facility] [place] [facility] [address] [id number], [place] [address]- 2265 10 Dec, 2012 [facility] [place] [facility] [address] [id number] [place] [address]- 9450 10 Dec, 2012 [facility] [place] [facility] [address] [id number], [place] [address]- 0827 20 Nov, 2012 [facility] [place] [facility] [address] [id number] [place] [address]- 0702 13 Nov, 2012 [facility] [place] [facility] [address] [id number] [place] [address]- 5170 12 Nov, 2012 [facility] [address] [id number] [place] [address]- 7943 Nov, [facility] [place] [facility] [address] [id number] [place] [address]- 5250 Nov, [facility] [place] [facility] [address] [id number] [place] [address]- 6895 Nov, [facility] [place] [facility] [address] [id number] [place] [address]- 8534 Oct, [facility] [place] [facility] [address] [id number] [place] [address]- 6434 Oct, [facility] [place] [facility] [address] [id number] [place] [address]- 8364 Sep, [facility] [place] [facility] [address] [id number] [place] [address]- 3153 Sep, [facility] [place] [facility] [address] [id number] [place] [address]- 7962 Sep, [facility] [place] [facility] [address] [id number] [place] [address]- 5698 Sep, [facility] [place] [facility] [address] [id number] [place] [address]- 2481 Sep, [facility] [place] [facility] [address] [id number] [place] [address]- 2321 Sep, [facility] [place] [facility] [address] [id number] [place] [address]- 7713 Sep, [facility] [place] [facility] [address] [id number] [place] [address]- 9776 Aug, [facility] [place] [facility] [address] [id number] [place] [address]- 6865 Aug, [facility] [place] [facility] [address] [id number] [place] [address]- 5918 Aug, [facility] [place] [facility] [address] [id number] [place] [address]- 9428 Aug, [facility] [address] [id number] [place] [address]- 3254 Aug, [facility] [address] [id number] [place] [address]- 7039 Aug, [facility] [address] [id number] [place] [address]- 3282 July, [facility] [address] [id number] [place] [address]- 9737 July, [facility] [address] [id number] [place] [address]- 1449 July, [facility] [address] [id number] [place] [address]- 2551 July, [facility] [address] [id number] [place] [address]- 7979 July, [facility] [address] [id number] [place] [address]- 9854 July, [facility] [address] [id number] [place] [address]- 1947 Jun, [facility] [address] [id number] [place] [address]- 5521 Jun, [facility] [address] [id number] [place] [address]- 8668 Jun, [facility] [address] [id number] [place] [address]- 8224 Jun, [facility] [place] [facility] [address] [id number] [place] [address]- 5373 Jun, [facility] [place] [facility] [address] [id number] [place] [address]- 7899 Jun, [facility] [place] [facility] [address] [id number] [place] [address]- 5080 Jun, [facility] [address] [id number] [place] [address]- 3264 May, [facility] [place] [facility] [address] [id number] [place] [address]- 9666 May, [facility] [place] [facility] [address] [facility] [id number] [place] [address] 26 Apr, 2012 [facility] [place] [facility] [address] [id number] [place] [address] Apr, 2012 [facility] [place] [facility] [address] [id number] [place] [address] Apr, 2012 [facility] [place] [facility] [address] [id number] [place] [address] Apr, 2012 [facility] [address] [facility] [id number] [place] [address] Apr, [facility] [place] [facility] [address] [id number] [place] [address] 08 Apr, 2012 [facility] [place] [facility] [address] [facility] [id number] [place] [address] 07 Apr, 2012 [facility] [place] [facility] [address] [facility] [id number] [place] [address] 07 Apr, 2012 [facility] [place] [facility] [address] [facility] [id number] [place] [address] 06 Apr, 2012 [facility] [place] [facility] [address] [facility] [id number] [place] [address] Apr, 2012 [facility] [place] [facility] [address] [id number] [place] [address] Apr, 2012 [facility] [place] [facility] [address] [facility] [id number] [place] [address] Mar, [facility] [place] [facility] [address] [id number] [place] [address] Mar, [facility] [place] [facility] [address] [id number] [place] [address] Mar, [facility] [address] [id number] [place] [address] Mar, [facility] [address] [id number] [place] [address] Mar, [facility] [address] [id number] [place] [address] Mar, [facility] [address] [id number] [place] [address] Mar, [facility] [address] [id number] [place] [address] Mar, [facility] [address] [id number] [place] [address] Mar, [facility] [address] [id number] [place] [address] Mar, [facility] [address] [id number] [place] [address] Mar, [facility] [address] [id number] [place] [address] Mar, [facility] [address] [id number] [place] [address] Mar, [facility] [address] [id number] [place] [address] Feb, [facility] [address] [id number] [place] [address] Feb, [facility] [address] [id number] [place] [address] Feb, [facility] [address] [id number] [place] [address] Feb, [facility] [address] [id number] [place] [address] Feb, [facility] [place] [facility] [address] [id number] [place] [address] Feb, [facility] [place] [facility] [address] [id number] [place] [address]- [address] Feb, [facility] [place] [facility] [address] [id number] [place] [address]- [address] Feb, [facility] [place] [facility] [address] [id number] [place] [address] Feb, [facility] [place] [facility] [address] [id number] [place] [address] Feb, [facility] [place] [facility] [address] [id number] [place] [address]- [address] Feb, [facility] [place] [facility] [address] [id number] [place] [address] Feb, [facility] [place] [facility] [address] [id number] [place] [address]- [address] Feb, [facility] [place] [facility] [address] [id number] [place] [address]- [address] Feb, [facility] [place] [facility] [address] [id number] [place] [address] Feb, [facility] [place] [facility] [address] [id number] [place] [address]- [address] Jan, [facility] [place] [facility] [address] [id number] [place] [address] Jan, [facility] [place] [facility] [address] [id number] [place] [address]- [address] Jan, [facility] [place] [facility] [address] [id number] [place] [address] Jan, [facility] [place] [facility] [address] [id number] [place] [address]- [address] Dec, [facility] [place] [facility] [address] [id number] [place] [address]- [address] 29 Dec, 2011 [facility] [place] [facility] [address] [id number] [place] [address]- [address] Dec, 2011 [facility] [place] [facility] [address] [id number] [place] [address]- [address] Dec, 2011 [facility] [place] [facility] [address] [id number] [place] [address] Dec, 2011 [facility] [place] [facility] [address] [id number] [place] [address]- 2836 Dec, 2011 [facility] [place] [facility] [address] [id number] [place] [address] Dec, 2011 [facility] [place] [facility] [address] [id number] [place] [address]- [address] Dec, 2011 [facility] [place] [facility] [address] [id number] [place] [address]- [address] Dec, [facility] [address] [id number] [place] [address]- [address] 04 Dec, 2011 [facility] [place] [facility] [address] [id number] [place] [address]- [address] 03 Dec, 2011 [facility] [place] [facility] [address] [id number] [place] [address]- [address] 25 Sep, 2011 [facility] [place] [facility] [address] [id number] [place] [address]- [address] 24 Sep, 2011 [facility] [place] [facility] [address] [id number] [place] [address]- [address] 20 Sep, 2011 [facility] [facility] [address] [id number] [place] [address] 19 Sep, 2011 [facility] [place] [facility] [address] [id number] [place] [address] 17 Sep, 2011 [facility] [place] [facility] [address] [id number] [place] [address] 16 Sep, 2011 [facility] [place] [facility] [address] [id number] [place] [address] 14 Sep, 2011 [facility] [place] [facility] [address] [id number] [place] [address] 13 Sep, 2011 [facility] [place] [facility] [address] [id number] [place] [address] 12 Sep, 2011 [facility] [place] [facility] [address] [id number] [place] [address] 07 Sep, 2011 [facility] [place] [facility] [address] [id number] [place] [address] 06 Sep, 2011 [facility] [place] [facility] [address] [id number] [place] [address] 4089 06 Sep, 2011 [facility] [place] [facility] [address] [id number] [place] [address] 05 Nov, 2011 [facility] [place] [facility] [address] [id number] [place] [address] 9332 29 Oct, 2011 [facility] [place] [facility] [address] [id number] [place] [address] 29 Oct, 2011 [facility] [place] [facility] [address] [id number] [place] [address] 5667 28 Oct, 2011 [facility] [place] [address] [id number] [place] [address] 45[address] 28 Oct, 2011 [facility] [place] [facility] [address] [id number] [place] [address] 23 Oct, 2011 [facility] [place] [facility] [address] [id number] [place] [address] 8730 Oct, [facility] [place] [address] [id number] [place] [address] Oct, [facility] [place] [facility] [address] [id number] [place] [address]- 0681 16 Oct, 2011 [facility] [place] [facility] [address] [id number] [place] [address] 7067 Oct, [facility] [address] [id number] [place] [address] 1359 Oct, [facility] [address] [id number] [place] [address] 5188 Oct, [facility] [address] [id number] [place] [address]- [address] Sep, [facility] [address] [id number] [place] [address] 9785 Sep, [facility] [address] [id number] [place] [address]102 Sep, [facility] [facility] [address] [id number] [place] [address]40 Sep, [facility] [address] [id number] [place] [address] 9365 Sep, [facility] [address] [id number] [place] [address] 6608 Sep, [facility] [address] [id number] [place] [address] 38[address] Aug, [facility] [address] [id number] [place] [address] July, [facility] [address] [id number] [place] [address] 6258 July, [facility] [address] [id number] [place] [address] 9798 Jun, [facility] [address] [id number] [place] [address]- [address] Jun, [facility] [address] [id number] [place] [address] 7495 Jun, [facility] [address] [id number] [place] [address]- 9227 Jun, [facility] [address] [id number] [place] [address]- 0558 10 Jun, 2011 [facility] [address] [id number] [place] [address]- 1255 10 Jun, 2011 [facility] [address] [id number] [place] [address]- 3896 09 Jun, 2011 [facility] [address] [id number] [place] [address]- 3074 08 Jun, 2011 [facility] [address] [id number] [place] [address]- 1470 Jun, [facility] [address] [id number] [place] [address] 1190 Jun, [facility] [address] [id number] [place] [address]- 2859 Jun, [facility] [address] [id number] [place] [address]- 0584 May, [facility] [address] [id number] [place] [address]- 9429 16 May, 2011 [facility] [address] [id number] [place] [address]- 3978 14 May, 2011 [facility] [address] [id number] [place] [address]- 4792 06 May, 2011 [facility] [address] [id number] [place] [address]- 6398 Apr, [facility] [address] [id number] [place] [address] 9802 28 Apr, 2011 [facility] [address] [id number] [place] [address]- 2186 27 Apr, 2011 [facility] [address] [id number] [place] [address]- 6742 23 Apr, 2011 [facility] [address] [id number] [place] [address]- 1425 Apr, [facility] [address] [id number] [place] [address]- 4484 Apr, [facility] [address] [id number] [place] [address]- 5420 Apr, [facility] [address] [id number] [place] [address]- 3519 Apr, [facility] [address] [id number] [place] [address]- 3999 Mar, [facility] [address] [id number] [place] [address]- 1336 Mar, [facility] [address] [id number] [place] [address] 2940 Mar, [facility] [address] [id number] [place] [address]- 2605 Mar, [facility] [address] [id number] [place] [address] 9105 Mar, [facility] [address] [id number] [place] [address]- 9992 Mar, [facility] [address] [id number] [place] [address]- 0018 Mar, [facility] [address] [id number] [place] [address]- 8466 Mar, [facility] [address] [id number] [place] [address]- 9286 Mar, [facility] [address] [id number] [place] [address]- 7541 Mar, [facility] [address] [id number] [place] [address] 7408 Mar, [facility] [address] [id number] [place] [address]- 6749 Mar, [facility] [address] [id number] [place] [address]- 7434 Mar, [facility] [address] [id number] [place] [address]- 2254 Mar, [facility] [address] [id number] [place] [address]- 2271 Mar, [facility] [address] [id number] [place] [address]- 6105 Mar, [facility] [address] [id number] [place] [address]- 9806 Feb, [facility] [address] [id number] [place] [address]- 4436 Feb, [facility] [address] [id number] [place] [address]- 1181 Feb, [facility] [address] [id number] [place] [address]- 2573 Jan, [facility] [address] [id number] [place] [address]- 6729 Jan, [facility] [address] [id number] [place] [address]- 5245 Jan, [facility] [address] [id number] [place] [address]- 3979 Dec, [facility] [address] [id number] [place] [address]- 7111 Dec, [facility] [address] [id number] [place] [address]- 6812 Nov, [facility] [address] [id number] [place] [address]- 7815 Oct, [facility] [address] [id number] [place] [address]- 6668 Oct, [facility] [address] [id number] [place] [address]- 6803 Oct, [facility] [address] [facility] [id number] [place] [address]- [address] Sep, [facility] [address] [facility] [id number], [place] [address]46 Apr, [facility] [address] [facility] [id number] [place] [address]- 2546 Feb, [facility] [address] [facility] [id number], [place] [address]- [address]46 Jan, IMMUNIZATIONS No Known Immunizations SOCIAL HISTORY Never Assessed REASON FOR VISIT EMR-[facility] PLAN OF CARE VITAL SIGNS MEDICATIONS No [...] 2/2 Benzos OD, pneumonia MRSA, MAYRA, Hypokalemia-- [facility] 12/20/2015 Hospitalization History COPD exacerbation, Asthma-[facility] 09/21/16 Hospitalization History COPD-[facility] 12/30/2016 Hospitalization History [facility] and [facility]to for inpatient-last around 2006 or so. Hospitalization History [facility] for COPD x2 Mar 2017 Hospitalization History Upper GI bleed at apr 2017 Hospitalization History [facility]- COPD Exacerbation, diarrhea 05/23/2017 Hospitalization History COPD exacerbation-[facility] 06/13/17 Hospitalization History CHF 09/09/2017 Hospitalization History COPD-UTI--[facility] 11/2017
[2018-06-30 11:30] LABS: ALLENS TEST YES-POS; INSPIRED O2 4 L; PATIENT TEMP 98.1; VENTILATOR NO
--- OUTSIDE RECORDS SUMMARY | 2018-06-30 11:31 | XMS REPORT ---
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 Active Problem TMJ (sprain of temporomandibular joint) S03.4XXA Active 49034465 Problem Migraine G43.909 Active 77386461 Problem Memory loss R41.3 Active 45289359 Problem Chronic constipation K59.09 Active 113620640 Problem Bipolar disorder with depression F31.30 Active 59368681 Problem Bipolar disorder, unspecified F31.9 Active 41000245 Problem Migraine without aura and without status migrainosus, not intractable G43.009 Active 915933001 Problem Chronic bronchitis, unspecified chronic bronchitis type J42 Active 01175844 Problem Methamphetamine use disorder, moderate, 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 Active 28865678 Problem Acute on chronic systolic congestive heart failure I50.23 Active 458889381 Problem Other emphysema J43.8 Active 02447955 Problem COPD exacerbation J44.1 Active 770328332 Problem Generalized anxiety disorder F41.1 Active 93798936 Problem Examination of eyes and vision V72.0 Active 497803980 Problem Diabetes E11.9 Active 395258149 Problem Intractable cyclical vomiting with nausea G43.A1 Active 73959067 Problem Anxiety F41.9 Active 42977834 Problem Chronic obstructive pulmonary disease, unspecified COPD type J44.9 Active 56650027 ALLERGIES No Information ENCOUNTERS Encounter Location Date Diagnosis [facility] [address], [place] [address] May, Chronic obstructive pulmonary disease with acute exacerbation J44.1 and Tobacco abuse Z72.0 [facility] [address], [place] [address] May, Chronic obstructive pulmonary disease with acute exacerbation J44.1 [facility] [address], [place] [address] Apr, [facility] [id number] [place] [address] 99017- 6312 Apr, [facility] [id number] [place] [address] 55045- 4078 Feb, Diabetes E11.9 ; Chronic obstructive pulmonary disease with (acute) exacerbation J44.1 and Encounter for immunization Z23 [facility] [id number] [place] [address] 74682- 6681 Jan, COPD exacerbation J44.1 [facility] [id number] [place] [address] 92184- 3469 Jan, Dental abscess K04.7 [facility] [id number] [place] [address] 03323- 3085 Jan, COPD exacerbation J44.1 and Acute on chronic systolic congestive heart failure I50.23 [facility] [id number] [place] [address] 40333- 8271 Dec, [facility] [id number] [place] [address] 15849- 4063 Dec, [facility] [id number] [place] [address] 65560- 7725 Nov, [facility] [id number] [place] [address] 50874- 7880 Nov, COPD with exacerbation J44.1 and Urinary tract infection without hematuria, site unspecified N39.0 [facility] [id number] [place] [address] 33724- 2636 Nov, Chronic obstructive pulmonary disease, unspecified COPD type J44.9 [facility] [id number] [place] [address] 71476- 2849 Oct, [facility] [id number] [place] [address] 42277- 4668 Oct, [facility] [address], [place] [address] 5517 Oct, [facility] [address], [place] [address] 6612 Oct, [facility] [address], [place] [address]- 7848 Oct, Thrush B37.0 [facility] [address] [place] [address] 85023- 7785 Sep, COPD with exacerbation J44.1 and Anxiety F41.9 [facility] [address], [place] [address] 8987 Sep, [facility] [address], [place] [address]- 0325 Sep, [facility] [address], [place] [address]- 5676 Sep, [facility] [address], [place] [address]- 3389 Sep, Acute congestive heart failure, unspecified heart failure type I50.9 and Anxiety disorder, unspecified F41.9 [facility] [address], [place] [address]- 3992 Sep, Heart failure, unspecified HF chronicity, unspecified heart failure type I50.9 [facility] [address], [place] [address]- 6886 Sep, [facility] [address], [place] [address] 4251 Aug, Chronic obstructive pulmonary disease with acute exacerbation J44.1 [facility] [address], [place] [address]- 9098 Aug, [facility] [address], [place] [address]- 2685 Aug, [facility] [address], [place] [address] 1200 July, [facility] [id number] [place] [address] 94840- 5760 July, [facility] [id number] [place] [address] 23813- 4068 July, Diabetes E11.9 and Chronic obstructive pulmonary disease with acute exacerbation J44.1 [facility] [id number] [place] [address] 69355- 7958 Jun, Chronic obstructive pulmonary disease with acute exacerbation J44.1 ; Diabetes E11.9 and Tobacco abuse Z72.0 [facility] [id number] [place] [address] 48361- 3284 Jun, [facility] [id number] [place] [address] 35070- 0082 Jun, [facility] [id number] [place] [address] 73537- 0857 May, [facility] [id number] [place] [address] 88975- 6130 May, [facility] [address], [place] [address] May, [facility] [address], [place] [address]- 4683 16 May, 2017 [facility] [id number] [place] [address] 95325- 1797 15 May, 2017 [facility] [address] [place] [address] 91376- 9353 14 May, 2017 Diarrhea, unspecified type R19.7 and Intractable cyclical vomiting with nausea G43.A1 [facility] [address], [place] [address] 1906 May, [facility] [id number] [place] [address] 65880- 1120 May, [facility] [id number] [place] [address] 10672- 9978 Apr, COPD exacerbation J44.1 ; Esophageal candidiasis B37.81 ; Other acute gastritis with hemorrhage K29.01 and Acute posthemorrhagic anemia D62 [facility] [address] [place] [address] 38913- 6788 Apr, Viral illness B34.9 and COPD exacerbation J44.1 [facility] [id number] [place] [address] 38459 -1638 Apr, Shortness of breath R06.02 and Pneumonia of both lower lobes due to infectious organism J18.9 [facility] [id number] [place] [address] 12835 -0844 Mar, COPD with acute exacerbation J44.1 [place] [address] 41835- 5095 Mar, Chronic obstructive pulmonary disease with acute exacerbation J44.1 and Diabetes E11.9 [facility] [address] [place] [address] 73975- 8354 Mar, [facility] [id number] [place] [address] 76016- 0355 Mar, [facility] [id number] [place] [address] 80717 -6132 Mar, COPD exacerbation J44.1 [facility] [id number] [place] [address] 76493- 4315 Mar, [facility] [address] [place] [address] 51152- 8666 Mar, Migraine G43.909 ; Hypokalemia E87.6 and Type 2 diabetes mellitus without complications E11.9 [facility] [id number] [place] [address] 64440- 4479 Feb, [facility] [id number] [place] [address] 96377- 5552 Feb, [facility] [address] [place] [address] 37848- 5810 Feb, Methamphetamine use disorder, moderate, 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 ; Major depressive disorder, recurrent, moderate F33.1 ; Anxiety disorder, unspecified F41.9 and Tobacco abuse Z72.0 [facility] [address] [place] [address] 60264- 0574 Jan, Major depressive disorder, recurrent, moderate F33.1 [facility] [id number] [place] [address] 58134- 3386 Jan, [facility] [id number] [place] [address] 77718- 8911 Jan, [facility] [id number] [place] [address] 05885- 6794 Jan, Major depressive disorder, recurrent, moderate F33.1 [facility] [address] [place] [address] 89865- 8374 Jan, Major depressive disorder, recurrent, moderate F33.1 ; Anxiety disorder, unspecified F41.9 ; Methamphetamine use disorder, moderate, 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 and Tobacco abuse Z72.0 [facility] [address] [place] [address] 34778- 5767 Jan, [facility] [address] [place] [address] 37840- 2014 Jan, Chronic obstructive pulmonary disease with acute exacerbation J44.1 and Diabetes E11.9 [facility] [address] [place] [address] 84144- 6740 Jan, [facility] [id number] [place] [address] 97062- 4437 Jan, [place] [facility] [address] [place] [address] 85514- 3441 24 Oct, 2017 Acute respiratory failure with hypoxia J96.01 ; Chronic bronchitis, unspecified chronic bronchitis type J42 and Tobacco use Z72.0 [facility] [address] [place] [address] 28312- 1156 Dec, [facility] [address] [place] [address] [id number] Nov, Dental caries K02.9 and Dental examination Z01.20 [facility] [id number] [place] [address] 59176- 4608 Nov, Major depressive disorder, recurrent, moderate F33.1 ; Anxiety disorder, unspecified F41.9 and 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 [facility] [id number] [place] [address] [id number] Oct, Dental examination Z01.20 [facility] [id number] [place] [address] 69254- 4294 Oct, [facility] [id number] [place] [address] 02668- 6605 Oct, Diabetes E11.9 and Thrush B37.0 [facility] [id number] [place] [address] 27939- 5142 Oct, [facility] [address] [place] [address] 91833- 1193 Oct, [facility] [address] [place] [address] 82757- 2919 Oct, [facility] [id number] [place] [address] 79479- 5029 Sep, Major depressive disorder, recurrent, moderate F33.1 ; Anxiety disorder, unspecified F41.9 and Bipolar disorder, unspecified F31.9 [facility] [address] [place] [address] 53107- 1736 Sep, Acute exacerbation of chronic obstructive pulmonary disease (COPD) J44.1 and Migraine G43.909 [facility] [address] [address]- 1234 Sep, [facility] [address] [id number] Sep, [facility] [address], [place] [address]- 1835 Sep, Acute exacerbation of chronic obstructive pulmonary disease (COPD) J44.1 [facility] [address], [place] [address] -8263 Sep, Acute exacerbation of chronic obstructive pulmonary disease (COPD) J44.1 [facility] [address], [place] [address]- 4039 Aug, [facility] [address], [place] [address]- 2195 Aug, Major depressive disorder, recurrent, moderate F33.1 ; Anxiety disorder, unspecified F41.9 and 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 [facility] [address], [place] [address]- 5693 Aug, Wheezing R06.2 ; Non morbid obesity due to excess calories E66.09 ; Migraine without aura and without status migrainosus, not intractable G43.009 and Tobacco abuse Z72.0 [facility] [id number] [id number] 14 Aug, 2016 Encounter for dental examination Z01.20 [facility] [address], [place] [address]- 1214 02 Aug, 2016 Major depressive disorder, recurrent, moderate F33.1 ; Anxiety disorder, unspecified F41.9 and 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 [facility] [address], [place] [address]- 5127 July, [facility] [address], [place] [address]- 2116 July, [facility] [address] [address]- 6263 July, [facility] [id number] [place] [address] 09442- 2407 July, Diabetes E11.9 [facility] [id number] [place] [address] 71226- 1201 Jun, Major depressive disorder, recurrent, moderate F33.1 [facility] [address] [place] [address] 71521- 6278 Jun, Major depressive disorder, recurrent, moderate F33.1 ; 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 ; Generalized anxiety disorder F41.1 and Bipolar disorder, unspecified F31.9 [facility] [address] [place] [address] 00264- 2425 Jun, Diabetes E11.9 ; Migraine G43.909 ; Thrush B37.0 and Wheezing R06.2 [facility] [address] [id number] Jun, Dental examination Z01.20 [place] [id number] [place] [address] 51771- 8037 Jun, [facility] [address] [place] [address] 02581- 1880 Jun, Major depressive disorder, recurrent, moderate F33.1 ; Anxiety disorder, unspecified F41.9 and 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 [facility] [address] [place] [address] 85124- 8072 Jun, [facility] [id number] [place] [address] 67446- 0192 Jun, Wheezing R06.2 [facility] [address] [id number] Jun, Dental caries K02.9 [facility] [address] [place] [address] 17913- 1695 Jun, Major depressive disorder, recurrent, moderate F33.1 ; Anxiety disorder, unspecified F41.9 and 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 [facility] [address] [place] [address] 34789- 9855 Jun, RLQ abdominal pain R10.31 ; Diabetes E11.9 ; Obesity, unspecified obesity severity, unspecified obesity type E66.9 ; Wheezing R06.2 and Abnormal urinalysis R82.90 [place] [address] 90990- 1130 May, [place] [address] 25142- 3525 May, Well woman exam Z01.419 ; Breast cancer screening Z12.39 ; Cervical cancer screening Z12.4 ; Urinary frequency R35.0 ; Edema, unspecified type R60.9 and Chronic constipation K59.09 [place] [facility] [address] 91625- 2689 May, Major depressive disorder, recurrent, moderate F33.1 ; Anxiety disorder, unspecified F41.9 and 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 [facility] [id number] [place] [address] [id number] May, Dental examination Z01.20 [facility] [address] [place] [address] 42623- 5171 May, [place] [facility] [address] 55152- 8656 May, [facility] [address] 96599- 7478 May, Chronic constipation K59.09 [facility] [address] [place] [address] 45098- 5480 Apr, [facility] [address] [place] [address] 68249- 2281 Apr, Major depressive disorder, recurrent, moderate F33.1 ; Anxiety disorder, unspecified F41.9 and 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 [facility] [address] [place] [address] 17885- 5320 Apr, [facility] [address] [place] [address] 41730- 3677 Mar, Major depressive disorder, recurrent, moderate F33.1 [facility] [address] [place] [address] 99742- 6639 Mar, Major depressive disorder, recurrent, moderate F33.1 ; Generalized anxiety disorder F41.1 and Bipolar I disorder, most recent episode depressed with anxious distress F31.30 [facility] [address] [place] [address] 09738- 3021 Mar, Diabetes E11.9 ; Non morbid obesity due to excess calories E66.09 ; Breast cancer screening Z12.39 and Encounter for immunization Z23 [facility] [address] [place] [address] 30135- 2807 Mar, Major depressive disorder, recurrent, moderate F33.1 ; Anxiety disorder, unspecified F41.9 and 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 [facility] [address] [place] [address] 74510- 1193 Mar, [facility] [address] [place] [address] 14943- 6379 Feb, Major depressive disorder, recurrent, moderate F33.1 ; Anxiety disorder, unspecified F41.9 and 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 [facility] [address] [place] [address] 18324- 6453 Feb, [facility] [id number] [place] [address] 01557- 5786 Feb, [facility] [address] [place] [address] 14408- 1430 Jan, Major depressive disorder, recurrent, moderate F33.1 ; Generalized anxiety disorder F41.1 and Bipolar disorder, current episode depressed, severe, without psychotic features F31.4 [facility] [address] [place] [address] 11122- 7689 Jan, Major depressive disorder, recurrent, moderate F33.1 ; Anxiety disorder, unspecified F41.9 and 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 [facility] [address] [place] [address] 29967- 6337 Jan, Bronchitis J40 [facility] [address] 55985- 4430 Jan, [facility] [id number] [place] [address] 31707- 0136 Jan, [facility] [address] [place] [address] 47830- 7592 Jan, Elbow injury, right, initial encounter S59.901A ; Multiple contusions T14.8 and Cervical strain, acute, initial encounter S16.1XXA [facility] [address] [place] [address] 25440- 9408 Dec, Major depressive disorder, recurrent, moderate F33.1 ; Generalized anxiety disorder F41.1 and Bipolar disorder with depression F31.30 [facility] [address] [place] [address] 50167- 3928 Dec, [facility] [id number] [place] [address] 39836- 8713 Dec, [facility] [id number] [place] [address] 59407- 1403 Dec, [facility] [address] [place] [address] 28192- 8068 Dec, [facility] [id number] [place] [address] 50729- 6557 Dec, Yeast infection B37.9 [place] [address] [address]- 6059 Dec, Pneumonia of both lungs due to methicillin resistant Staphylococcus aureus (MRSA), unspecified part of lung J15.212 and Benzodiazepine overdose, accidental or unintentional, subsequent encounter T42.4X1D [facility] [address], [place] [address]- 7900 Dec, [facility] [id number] [place] [address] 74182- 4099 Dec, [facility] [address] [place] [address] 42941- 9429 Dec, Knee pain, left M25.562 and Edema, unspecified type R60.9 [facility] [address] [place] [address] 86388- 8575 Dec, [facility] [address] [place] [address] 51316- 3046 Dec, Anxiety disorder, unspecified F41.9 and Bipolar disorder, unspecified F31.9 [facility] [address] [place] [address] 28096- 8960 Nov, Major depressive disorder, recurrent, moderate F33.1 ; Anxiety disorder, unspecified F41.9 and 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 [facility] [address], [place] [address]- 5404 Nov, [facility] [address] [place] [address] 65998- 9325 Nov, Migraine without aura and without status migrainosus, not intractable G43.009 [facility] [address] [place] [address] 21761- 5949 Nov, Migraine G43.909 [facility] [address] [place] [address] 93540- 2228 Nov, [facility] [address] [address]- 1889 Nov, Major depressive disorder, recurrent, moderate F33.1 ; Anxiety disorder, unspecified F41.9 and 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 [facility] [address] [place] [address] 52032- 5346 Oct, Chronic constipation K59.09 and Obesity, unspecified obesity severity, unspecified obesity type E66.9 [facility] [address] [place] [address] 10929- 8401 Oct, Obesity, unspecified obesity severity, unspecified obesity type E66.9 ; Chronic constipation K59.09 and Anxiety disorder, unspecified F41.9 [facility] [address] [place] [address] 60446- 9630 Oct, [facility] [address] [place] [address] 72585- 3804 Sep, Diabetes E11.9 ; Edema, unspecified type R60.9 ; Varicose vein of leg I83.90 and Obesity, unspecified obesity severity, unspecified obesity type E66.9 [facility] [address] [place] [address] 75873- 8025 Sep, Edema, unspecified type R60.9 ; Diabetes E11.9 and Knee pain , left M25.562 [facility] [id number] [place] [address] [id number] 2990 Sep, [place] [id number] [place] [address] [id number] Sep, [place] [id number] [place] [address] [id number] 5308 Sep, Major depressive disorder, recurrent, moderate F33.1 ; Generalized anxiety disorder F41.1 and Bipolar disorder, unspecified F31.9 [place] [id number] [place] [address] [id number] 1326 Aug, Chondromalacia of left knee M94.262 [facility] [id number] [place] [address] [id number] 24 Aug, 2015 Major depressive disorder, recurrent, moderate F33.1 ; Anxiety disorder, unspecified F41.9 and 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 [facility] [id number] [place] [address] 72004- 1988 Aug, [facility] [id number] [place] [address] 32025- 9182 Aug, Osteoarthritis of left knee M17.9 [facility] [id number] [place] [address] 52681- 5628 Aug, [facility] [id number] [place] [address] 87856- 1809 July, Major depressive disorder, recurrent, moderate F33.1 ; Anxiety disorder, unspecified F41.9 and 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 [facility] [id number] [place] [address] 38299- 1395 July, [facility] [id number] [place] [address] 60148- 4490 July, Chronic constipation K59.09 [facility] [id number] [place] [address] 14299- 5433 Jun, [facility] [id number] [place] [address] 94078- 3148 15 Jun, 2015 [facility] [id number] [place] [address] 46107- 8667 14 Jun, 2015 Osteoarthritis of left knee M17.9 [facility] [id number] [place] [address] 64025- 6358 Jun, [facility] [id number] [place] [address] 77267- 0082 Jun, Generalized anxiety disorder F41.1 ; Bipolar disorder, unspecified F31.9 and Major depressive disorder, recurrent, moderate F33.1 [place] [address] 31602- 4990 Jun, Migraine G43.909 [place] [address] 35922- 0603 Jun, Left knee pain M25.562 ; Chronic constipation K59.09 ; Dry mouth R68.2 ; Yeast vaginitis B37.3 and Memory loss R41.3 [place] [address] 69764- 3080 Jun, [place] [address] 57280- 4268 May, [place] [address] 82329- 9332 May, [place] [address] 57518- 4446 May, [place] [address] 01907- 4538 May, [place] [facility] [address] 54241- 1789 May, Acute bronchitis with COPD J44.0 ; Knee pain, left M25.562 and Encounter for tobacco use cessation counseling Z71.6 [place] [facility] [address] 98011- 1825 May, [place] [address] 71298- 8809 Apr, Diabetes E11.9 ; TMJ (sprain of temporomandibular joint) S03.4XXA ; Tobacco abuse Z72.0 ; Migraine G43.909 and Anxiety F41.9 [facility] [id number] [place] [address] 06261- 9538 Apr, Generalized anxiety disorder F41.1 and Bipolar disorder, unspecified F31.9 [place] [address] [address]- 6583 24 Apr, 2015 Major depressive disorder, recurrent, moderate F33.1 ; Anxiety disorder, unspecified F41.9 and 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 [facility] [address] [address]- 1336 Apr, [facility] [id number] [place] [address] 20464- 8093 Mar, [facility] [id number] [place] [address] 20021- 0656 Feb, [facility] [id number] [place] [address] 13119- 8709 Feb, Major depressive disorder, recurrent, moderate F33.1 ; Anxiety disorder, unspecified F41.9 and 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 [facility] [id number] [place] [address] 35530- 5499 Feb, [facility] [id number] [place] [address] 90904- 8144 Feb, Generalized anxiety disorder F41.1 and Bipolar disorder, unspecified F31.9 [facility] [address] [address]- 6943 30 Jan, 2015 [facility] [address] [address]- 0856 18 Jan, 2015 [facility] [address] [address]- 6991 Jan, Bipolar disorder, unspecified F31.9 and Generalized anxiety disorder F41.1 [facility] [address] [address]- 3806 14 Dec, 2014 [facility] [address] [address]- 3840 Dec, Bipolar disorder, unspecified F31.9 and Generalized anxiety disorder F41.1 [facility] [id number] [place] [address] 79492- 3143 Dec, Generalized anxiety disorder F41.1 and Major depressive disorder, recurrent, moderate F33.1 [facility] [id number] [place] [address] 74751- 4425 Oct, Headache 784.0 ; Cough 786.2 ; Vomiting and diarrhea 787.03 and Dysuria 788.1 [facility] [id number] [place] [address] 64305- 2030 Aug, [facility] [address] 13489- 1341 Aug, Headache 784.0 and Shortness of breath 786.05 [facility] [id number] [place] [address] 95207- 0206 Aug, [facility] [id number] [place] [address] 33492- 1296 Aug, Migraine 346.90 [facility] [id number] [place] [address] 35439- 0488 Jun, [facility] [id number] [place] [address] 96462- 7377 Jun, [facility] [id number] [place] [address] 72413- 4790 May, [facility] [id number] [place] [address] 32661- 0518 May, [facility] [id number] [place] [address] 40454- 2208 May, [facility] [id number] [place] [address] 96937- 8778 May, [facility] [id number] [place] [address] 90461- 2952 May, [facility] [id number] [place] [address] 37688- 1449 May, [facility] [place] [facility] [address] [id number] [place] [address]- 4204 Apr, 2014 [facility] [place] [facility] [address] [id number] [place] 3876 Apr, 2014 [facility] [place] [facility] [address] [id number] [place] [address]- 6776 Apr, 2014 [facility] [place] [facility] [address] [id number] [place] [address]- 7327 Apr, [facility] [place] [facility] [address] [id number] [place] [address]- 9997 Apr, [facility] [place] [facility] [address] [id number] [place] [address]- 2317 Mar, [facility] [place] [facility] [address] [id number] [place] [address]- 5317 Mar, [facility] [place] [facility] [address] [id number] [place] [address]- 2688 Mar, [facility] [place] [facility] [address] [id number] [place] [address]- 2273 Mar, [facility] [place] [facility] [address] [facility] [id number] [place] [address]- 7512 Feb, [facility] [place] [facility] [address] [id number] [place] [address]- 3495 19 Feb, 2014 [facility] [place] [facility] [address] [id number] [place] [address]- 5906 18 Feb, 2014 [facility] [place] [facility] [address] [id number] [place] [address]- 6250 18 Feb, 2014 [facility] [place] [facility] [address] [id number] [place] [address]- 6162 16 Feb, 2014 [facility] [place] [facility] [address] [id number] [place] 6685 Feb, [facility] [place] [facility] [address] [id number] [place] [address]- 5693 Feb, [facility] [place] [facility] [address] [id number] [place] [address]- 6247 Feb, [facility] [place] [facility] [address] [id number] [place] 7012 Feb, [facility] [place] [facility] [address] [id number] [place] [address]- 1065 Feb, [facility] [place] [facility] [address] [id number] [place] [address]- 5706 Feb, [facility] [place] [facility] [address] [id number] [place] [address]- 6644 Feb, [facility] [place] [facility] [address] [id number] [place] [address]- 2419 Jan, [facility] [place] [facility] [address] [id number] [place] [address]- 3393 Jan, [facility] [place] [facility] [address] [id number] [place] [address]- 4684 Dec, [facility] [place] [facility] [address] [id number] [place] [address]- 9425 Dec, [facility] [place] [facility] [address] [id number] [place] [address]- 0332 Dec, [facility] [place] [facility] [address] [id number] [place] [address]- 4771 Dec, [facility] [place] [facility] [address] [id number] [place] [address]- 5354 Dec, [facility] [place] [facility] [address] [id number] [place] [address]- 1535 Dec, [facility] [place] [facility] [address] [id number] [place] [address]- 4929 Sep, [facility] [place] [facility] [address] [id number] [place] [address]- 5787 Sep, [facility] [place] [facility] [address] [id number] [place] [address]- 5138 Sep, [facility] [place] [facility] [address] [id number] [place] [address]- 3789 Sep, [facility] [place] [facility] [address] [id number] [place] [address]- 2645 Sep, [facility] [place] [facility] [address] [id number] [place] [address]- 2586 Sep, [facility] [place] [facility] [address] [id number] [place] [address]- 4344 Sep, [facility] [place] [facility] [address] [id number] [place] [address]- 5136 Sep, [facility] [place] [facility] [address] [id number] [place] [address]- 7186 Sep, [facility] [place] [facility] [address] [id number] [place] [address]- 2626 Sep, [facility] [place] [facility] [address] [id number] [place] [address]- 2712 Aug, [facility] [place] [facility] [address] [id number] [place] [address]- 1596 Aug, [facility] [place] [facility] [address] [id number] [place] [address]- 4644 Aug, [facility] [place] [facility] [address] [id number] [place] [address]- 3468 Aug, [facility] [place] [facility] [address] [id number] [place] [address]- 8492 Aug, [facility] [place] [facility] [address] [id number] [place] [address]- 4648 Aug, [facility] [place] [facility] [address] [id number] [place] [address]- 7425 Aug, [facility] [place] [facility] [address] [id number] [place] [address]- 7930 Aug, [facility] [address] [id number] [place] [address]- 7915 Aug, [facility] [place] [facility] [address] [id number] [place] [address]- 0437 Aug, [facility] [address] [id number] [place] [address]- 2078 Aug, [facility] [place] [facility] [address] [id number] [place] [address]- 3618 Aug, [facility] [place] [facility] [address] [id number] [place] [address]- 1869 Aug, [facility] [place] [facility] [address] [id number] [place] [address]- 0798 July, [facility] [place] [facility] [address] [id number] [place] [address]- 3969 July, [facility] [address] [id number] [place] [address]- 8447 July, [facility] [place] [facility] [address] [id number] [place] [address]- 7944 July, [facility] [address] [id number] [place] [address]- 9302 July, [facility] [place] [facility] [address] [id number] [place] [address]- 8225 July, [facility] [place] [facility] [address] [id number] [place] [address]- 9200 July, [facility] [place] [facility] [address] [id number] [place] [address]- 4006 Jun, [facility] [place] [facility] [address] [id number] [place] [address]- 1922 Jun, [facility] [place] [facility] [address] [id number] [place] [address]- 9743 Jun, [facility] [place] [facility] [address] [id number] [place] [address]- 5843 16 Jun, 2013 [facility] [place] [facility] [address] [id number] [place] [address]- 4120 16 Jun, 2013 [facility] [place] [facility] [address] [id number] [place] [address]- 2996 Jun, [facility] [place] [facility] [address] [id number] [place] [address]- 1086 Jun, [facility] [place] [facility] [address] [id number] [place] [address]- 0323 17 May, 2013 [facility] [place] [facility] [address] [id number] [place] [address]- 2492 17 May, 2013 [facility] [place] [facility] [address] [id number] [place] [address]- 9079 14 May, 2013 [facility] [place] [facility] [address] [id number] [place] [address]- 9623 14 May, 2013 [facility] [place] [facility] [address] [id number] [place] [address]- 2503 13 May, 2013 [facility] [place] [facility] [address] [id number] [place] [address]- 2493 13 May, 2013 [facility] [place] [facility] [address] [id number] [place] [address]- 0214 10 May, 2013 [facility] [place] [facility] [address] [id number] [place] [address]- 5431 10 May, 2013 [facility] [place] [facility] [address] [id number] [place] [address]- 1773 07 May, 2013 [facility] [place] [facility] [address] [id number] [place] [address]- 7071 Apr, [facility] [place] [facility] [address] [id number] [place] 0600 Apr, [facility] [place] [facility] [address] [id number] [place] [address]- 0956 18 Apr, 2013 [facility] [place] [facility] [address] [id number] [place] [address]- 2896 Apr, [facility] [place] [facility] [address] [id number] [place] [address]- 7106 Apr, [facility] [place] [facility] [address] [id number] [place] [address]- 8636 Apr, [facility] [place] [facility] [address] [id number] [place] [address]- 0760 Apr, [facility] [place] [facility] [address] [id number] [place] [address]- 8381 Apr, [facility] [place] [facility] [address] [id number] [place] [address]- 7777 Apr, [facility] [place] [facility] [address] [id number] [place] [address]- 4942 Apr, [facility] [place] [facility] [address] [id number] [place] [address]- 9738 Mar, [facility] [place] [facility] [address] [id number] [place] [address]- 5646 Mar, [facility] [place] [facility] [address] [facility] [id number] [place] [address]- 4389 Mar, [facility] [place] [facility] [address] [id number] [place] [address]- 4246 Mar, [facility] [place] [facility] [address] [id number] [place] [address]- 2222 Mar, [facility] [place] [facility] [address] [id number] [place] [address]- 8350 Mar, [facility] [place] [facility] [address] [id number] [place] 7806 Mar, [facility] [place] [facility] [address] [id number] [place] [address]- 3761 Mar, [facility] [place] [facility] [address] [id number] [place] [address]- 6833 Feb, [facility] [place] [facility] [address] [id number] [place] [address]- 3841 Feb, [facility] [place] [facility] [address] [id number] [place] [address]- 6991 Jan, [facility] [place] [facility] [address] [id number] [place] [address]- 4030 Jan, [facility] [place] [facility] [address] [id number] [place] [address]- 7336 Jan, [facility] [place] [facility] [address] [id number] [place] [address]- 4257 Jan, [facility] [place] [facility] [address] [id number] [place] [address]- 3414 Jan, [facility] [place] [facility] [address] [id number], [place] [address]- 9171 Jan, [facility] [place] [facility] [address] [id number] [place] [address]- 9919 Jan, [facility] [place] [facility] [address] [id number], [place] [address]- 3604 05 Jan, 2013 [facility] [place] [facility] [address] [id number], [place] [address]- 9294 Dec, [facility] [place] [facility] [address] [id number], [place] [address]- 4100 10 Dec, 2012 [facility] [place] [facility] [address] [id number] [place] [address]- 8020 10 Dec, 2012 [facility] [place] [facility] [address] [id number], [place] [address]- 3447 20 Nov, 2012 [facility] [place] [facility] [address] [id number] [place] [address]- 1847 13 Nov, 2012 [facility] [place] [facility] [address] [id number] [place] [address]- 8839 12 Nov, 2012 [facility] [address] [id number] [place] [address]- 6982 Nov, [facility] [place] [facility] [address] [id number] [place] [address]- 5216 Nov, [facility] [place] [facility] [address] [id number] [place] [address]- 0699 Nov, [facility] [place] [facility] [address] [id number] [place] [address]- 2135 Oct, [facility] [place] [facility] [address] [id number] [place] [address]- 4714 Oct, [facility] [place] [facility] [address] [id number] [place] [address]- 8052 Sep, [facility] [place] [facility] [address] [id number] [place] [address]- 6757 Sep, [facility] [place] [facility] [address] [id number] [place] [address]- 8021 Sep, [facility] [place] [facility] [address] [id number] [place] [address]- 6456 Sep, [facility] [place] [facility] [address] [id number] [place] [address]- 9155 Sep, [facility] [place] [facility] [address] [id number] [place] [address]- 1960 Sep, [facility] [place] [facility] [address] [id number] [place] [address]- 5226 Sep, [facility] [place] [facility] [address] [id number] [place] [address]- 7388 Aug, [facility] [place] [facility] [address] [id number] [place] [address]- 9668 Aug, [facility] [place] [facility] [address] [id number] [place] [address]- 0838 Aug, [facility] [place] [facility] [address] [id number] [place] [address]- 4549 Aug, [facility] [address] [id number] [place] [address]- 3752 Aug, [facility] [address] [id number] [place] [address]- 7178 Aug, [facility] [address] [id number] [place] [address]- 8913 July, [facility] [address] [id number] [place] [address]- 2673 July, [facility] [address] [id number] [place] [address]- 4400 July, [facility] [address] [id number] [place] [address]- 2130 July, [facility] [address] [id number] [place] [address]- 8458 July, [facility] [address] [id number] [place] [address]- 0814 July, [facility] [address] [id number] [place] [address]- 9946 Jun, [facility] [address] [id number] [place] [address]- 7180 Jun, [facility] [address] [id number] [place] [address]- 9507 Jun, [facility] [address] [id number] [place] [address]- 3481 Jun, [facility] [place] [facility] [address] [id number] [place] [address]- 0113 Jun, [facility] [place] [facility] [address] [id number] [place] [address]- 6826 Jun, [facility] [place] [facility] [address] [id number] [place] [address] 2015 Jun, [facility] [address] [id number] [place] [address] May, [facility] [place] [facility] [address] [id number] [place] [address] May, [facility] [place] [facility] [address] [facility] [id number] [place] [address] 26 Apr, 2012 [facility] [place] [facility] [address] [id number] [place] [address] Apr, 2012 [facility] [place] [facility] [address] [id number] [place] [address] Apr, 2012 [facility] [place] [facility] [address] [id number] [place] [address] Apr, 2012 [facility] [address] [facility] [id number] [place] [address] Apr, [facility] [place] [facility] [address] [id number] [place] [address] 08 Apr, 2012 [facility] [place] [facility] [address] [facility] [id number] [place] [address] 07 Apr, 2012 [facility] [place] [facility] [address] [facility] [id number] [place] [address] 07 Apr, 2012 [facility] [place] [facility] [address] [facility] [id number] [place] [address] 06 Apr, 2012 [facility] [place] [facility] [address] [facility] [id number] [place] [address] 25[address] Apr, 2012 [facility] [place] [facility] [address] [id number] [place] [address] Apr, 2012 [facility] [place] [facility] [address] [facility] [id number] [place] [address] Mar, [facility] [place] [facility] [address] [id number] [place] [address] 2010 Mar, [facility] [place] [facility] [address] [id number] [place] [address] Mar, [facility] [address] [id number] [place] [address] Mar, [facility] [address] [id number] [place] [address] Mar, [facility] [address] [id number] [place] [address] Mar, [facility] [address] [id number] [place] [address] Mar, [facility] [address] [id number] [place] [address] Mar, [facility] [address] [id number] [place] [address] Mar, [facility] [address] [id number] [place] [address] Mar, [facility] [address] [id number] [place] [address] Mar, [facility] [address] [id number] [place] [address] Mar, [facility] [address] [id number] [place] [address] Mar, [facility] [address] [id number] [place] [address] Feb, [facility] [address] [id number] [place] [address] Feb, [facility] [address] [id number] [place] [address] Feb, [facility] [address] [id number] [place] [address] Feb, [facility] [address] [id number] [place] [address] Feb, [facility] [place] [facility] [address] [id number] [place] [address] Feb, [facility] [place] [facility] [address] [id number] [place] [address] Feb, [facility] [place] [facility] [address] [id number] [place] [address] Feb, [facility] [place] [facility] [address] [id number] [place] [address] Feb, [facility] [place] [facility] [address] [id number] [place] [address] Feb, [facility] [place] [facility] [address] [id number] [place] [address] Feb, [facility] [place] [facility] [address] [id number] [place] [address] Feb, [facility] [place] [facility] [address] [id number] [place] [address] Feb, [facility] [place] [facility] [address] [id number] [place] [address] 77[address] Feb, [facility] [place] [facility] [address] [id number] [place] [address] Feb, [facility] [place] [facility] [address] [id number] [place] [address] Jan, [facility] [place] [facility] [address] [id number] [place] [address] Jan, [facility] [place] [facility] [address] [id number] [place] [address] Jan, [facility] [place] [facility] [address] [id number] [place] [address] Jan, [facility] [place] [facility] [address] [id number] [place] [address]- [address] Dec, [facility] [place] [facility] [address] [id number] [place] [address]- [address] 29 Dec, 2011 [facility] [place] [facility] [address] [id number] [place] [address] Dec, 2011 [facility] [place] [facility] [address] [id number] [place] [address] 1536 Dec, 2011 [facility] [place] [facility] [address] [id number] [place] [address] 39[address] Dec, 2011 [facility] [place] [facility] [address] [id number] [place] [address]- 1483 Dec, 2011 [facility] [place] [facility] [address] [id number] [place] [address] Dec, 2011 [facility] [place] [facility] [address] [id number] [place] [address] Dec, 2011 [facility] [place] [facility] [address] [id number] [place] [address] Dec, [facility] [address] [id number] [place] [address] 04 Dec, 2011 [facility] [place] [facility] [address] [id number] [place] [address] 03 Dec, 2011 [facility] [place] [facility] [address] [id number] [place] [address] 25 Sep, 2011 [facility] [place] [facility] [address] [id number] [place] [address]47 24 Sep, 2011 [facility] [place] [facility] [address] [id number] [place] [address] 20 Sep, 2011 [facility] [place] [facility] [address] [id number] [place] [address] 19 Sep, 2011 [facility] [place] [facility] [address] [id number] [place] [address] 17 Sep, 2011 [facility] [place] [facility] [address] [id number] [place] [address] 16 Sep, 2011 [facility] [place] [facility] [address] [id number] [place] [address]60 14 Sep, 2011 [facility] [place] [facility] [address] [id number] [place] [address] 13 Sep, 2011 [facility] [place] [facility] [address] [id number] [place] [address] 5985 12 Sep, 2011 [facility] [place] [facility] [address] [id number] [place] [address] 07 Sep, 2011 [facility] [place] [facility] [address] [id number] [place] [address] 06 Sep, 2011 [facility] [place] [facility] [address] [id number] [place] [address] 7712 06 Sep, 2011 [facility] [place] [facility] [address] [id number] [place] [address] 05 Nov, 2011 [facility] [place] [facility] [address] [id number] [place] [address] 9131 29 Oct, 2011 [facility] [place] [facility] [address] [id number] [place] [address] 8896 29 Oct, 2011 [facility] [place] [facility] [address] [id number] [place] [address] 6481 28 Oct, 2011 [facility] [place] [facility] [address] [id number] [place] [address]777 28 Oct, 2011 [facility] [place] [facility] [address] [id number] [place] [address] 9408 23 Oct, 2011 [facility] [place] [facility] [address] [id number] [place] [address] Oct, [facility] [place] [facility] [address] [id number] [place] [address] 7030 Oct, [facility] [place] [facility] [address] [id number] [place] [address] 9185 16 Oct, 2011 [facility] [place] [facility] [address] [id number] [place] [address] 3544 Oct, [facility] [address] [id number] [place] [address] 3715 Oct, [facility] [place] [facility] [address] [id number] [place] [address] 4860 Oct, [facility] [place] [facility] [address] [id number] [place] [address] 7987 Sep, [facility] [place] [facility] [address] [id number] [place] [address] 9974 Sep, [facility] [place] [facility] [address] [id number] [place] [address] 99[address] Sep, [facility] [place] [facility] [address] [id number] [place] [address] Sep, [facility] [address] [id number] [place] [address] 480[address] Sep, [facility] [place] [facility] [address] [id number] [place] [address] 8349 Sep, [facility] [place] [facility] [address] [id number] [place] [address] 8057 Aug, [facility] [place] [facility] [address] [id number] [place] [address] 0437 July, [facility] [place] [facility] [address] [id number] [place] [address] July, [facility] [place] [facility] [address] [id number] [place] [address] 8611 Jun, [facility] [place] [facility] [address] [id number] [place] [address] Jun, [facility] [place] [facility] [address] [id number] [place] [address] 2418 Jun, [facility] [place] [facility] [address] [id number] [place] [address] 4225 Jun, [facility] [place] [facility] [address] [id number] [place] [address] 8[address] 10 Jun, 2011 [facility] [place] [facility] [address] [id number] [place] [address] 0631 10 Jun, 2011 [facility] [place] [facility] [address] [id number] [place] [address] 5106 09 Jun, 2011 [facility] [place] [facility] [address] [id number] [place] [address]- 9881 08 Jun, 2011 [facility] [place] [facility] [address] [id number] [place] [address] 7046 Jun, [facility] [place] [facility] [address] [id number] [place] [address] 9973 Jun, [facility] [place] [facility] [address] [id number] [place] [address] 9[address] Jun, [facility] [place] [facility] [address] [id number] [place] [address] 9145 May, [facility] [place] [facility] [address] [id number] [place] [address] 6359 16 May, 2011 [facility] [place] [facility] [address] [id number] [place] [address] 8686 14 May, 2011 [facility] [place] [facility] [address] [id number] [place] [address]- 2110 06 May, 2011 [facility] [place] [facility] [address] [id number] [place] [address] 3937 Apr, [facility] [place] [facility] [address] [id number] [place] [address]- 0926 28 Apr, 2011 [facility] [place] [facility] [address] [id number] [place] [address]- 0014 27 Apr, 2011 [facility] [place] [facility] [address] [id number] [place] [address]- 6834 23 Apr, 2011 [facility] [place] [facility] [address] [id number] [place] [address]- 7483 Apr, [facility] [address] [id number] [place] [address] 5457 Apr, [facility] [address] [id number] [place] [address] 6645 Apr, [facility] [address] [id number] [place] [address] 9873 Apr, [facility] [address] [id number] [place] [address] 0581 Mar, [facility] [address] [id number] [place] [address] 4996 Mar, [facility] [address] [id number] [place] [address] 8699 Mar, [facility] [address] [id number] [place] [address]- 1474 Mar, [facility] [address] [id number] [place] [address] 4470 Mar, [facility] [address] [id number] [place] [address] 9172 Mar, [facility] [address] [id number] [place] [address]- 7499 Mar, [facility] [address] [id number] [place] [address]- 1725 Mar, [facility] [place] [facility] [address] [id number] [place] [address] 8168 Mar, [facility] [place] [facility] [address] [id number] [place] [address]- 9846 Mar, [facility] [place] [facility] [address] [id number] [place] [address] 9228 Mar, [facility] [address] [id number] [place] [address]- 0919 Mar, [facility] [place] [facility] [address] [id number] [place] [address]- 6303 Mar, [facility] [place] [facility] [address] [id number] [place] [address]- 8116 Mar, [facility] [place] [facility] [address] [id number] [place] [address]- 8489 Mar, [facility] [place] [facility] [address] [id number] [place] [address]- 9171 Mar, [facility] [place] [facility] [address] [id number] [place] [address]- 7430 Feb, [facility] [place] [facility] [address] [id number] [place] [address]- 6564 Feb, [facility] [place] [facility] [address] [id number] [place] [address]- 4761 Feb, [facility] [place] [facility] [address] [id number] [place] [address]- 2522 Jan, [facility] [place] [facility] [address] [id number] [place] [address]- 2972 Jan, [facility] [place] [facility] [address] [id number] [place] [address]- 5032 Jan, [facility] [place] [facility] [address] [id number] [place] [address]- 9302 Dec, [facility] [place] [facility] [address] [id number] [place] [address]- 2489 Dec, [facility] [place] [facility] [address] [id number] [place] [address]- 4563 Nov, [facility] [place] [facility] [address] [id number] [place] [address]- 0526 Oct, [facility] [place] [facility] [address] [id number] [place] [address]- 3980 Oct, [facility] [place] [facility] [address] [id number] [place] [address]- 7262 Oct, [facility] [address] [facility] [id number] [place] [address]- 2546 Sep, [facility] [address] [facility] [id number] [address] Apr, [facility] [address] [facility] [id number] [place] [address]- 2546 Feb, [facility] [address] [facility] [id number], [place] [address]46 Jan, IMMUNIZATIONS No Known Immunizations SOCIAL HISTORY Never Assessed REASON FOR VISIT EMR-[facility] PLAN OF CARE VITAL SIGNS MEDICATIONS No [...] OD, pneumonia MRSA, MAYRA, Hypokalemia-- [facility] 12/20/2015 Hospitalization History COPD exacerbation, Asthma-[facility] 09/21/16 Hospitalization History COPD-[facility] 12/30/2016 Hospitalization History [facility] and dagoberto for inpatient-last around 2006 or so. Hospitalization History [facility] for COPD x2 Mar 2017 Hospitalization History Upper GI bleed at apr 2017 Hospitalization History [facility]- COPD Exacerbation, diarrhea 05/23/2017 Hospitalization History COPD exacerbation-[facility] 06/13/17 Hospitalization History CH[facility] 09/09/2017 Hospitalization History COPD-UTI--[facility] 11/2017
[2018-06-30 11:33] LABS: BASOPHILS % (AUTO) 0 % (0-10); EOSINOPHILS # (AUTO) 0.3 10^3/uL (0.0-0.3); EOSINOPHILS % (AUTO) 4 % (0-10); HEMATOCRIT 42 % (35-52); HEMOGLOBIN 14.1 G/DL (11.5-16.0); LYMPHOCYTES # (AUTO) 2.2 X 10^3 (1.0-4.0); LYMPHOCYTES % (AUTO) 28 % (12-44); MEAN CORPUSCULAR HEMOGLOBIN 29 PG (25-34); MEAN CORPUSCULAR HGB CONC 34 G/DL (32-36); MEAN CORPUSCULAR VOLUME 86 FL (80-99); MEAN PLATELET VOLUME 9.8 FL (7.4-10.4); MONOCYTES # (AUTO) 0.8 X 10^3 (0.0-1.0); MONOCYTES % (AUTO) 9 % (0-12); NEUTROPHILS # (AUTO) 4.7 X 10^3 (1.8-7.8); NEUTROPHILS % (AUTO) 59 % (42-75); PLATELET COUNT 271 10^3/uL (130-400); RED CELL DISTRIBUTION WIDTH 14.8 % (10.0-14.5)
--- OUTSIDE RECORDS SUMMARY | 2018-06-30 11:33 | XMS REPORT ---
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 Active Problem TMJ (sprain of temporomandibular joint) S03.4XXA Active 33007537 Problem Migraine G43.909 Active 01665539 Problem Memory loss R41.3 Active 19552776 Problem Chronic constipation K59.09 Active 809926734 Problem Bipolar disorder with depression F31.30 Active 57667512 Problem Bipolar disorder, unspecified F31.9 Active 50474178 Problem Migraine without aura and without status migrainosus, not intractable G43.009 Active 919357343 Problem Chronic bronchitis, unspecified chronic bronchitis type J42 Active 99764717 Problem Methamphetamine use disorder, moderate, 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 Active 76567234 Problem Acute on chronic systolic congestive heart failure I50.23 Active 592310772 Problem Other emphysema J43.8 Active 38035148 Problem COPD exacerbation J44.1 Active 045255484 Problem Generalized anxiety disorder F41.1 Active 58142134 Problem Examination of eyes and vision V72.0 Active 702317990 Problem Diabetes E11.9 Active 630953479 Problem Intractable cyclical vomiting with nausea G43.A1 Active 18565093 Problem Anxiety F41.9 Active 57257334 Problem Chronic obstructive pulmonary disease, unspecified COPD type J44.9 Active 46218021 ALLERGIES No Information ENCOUNTERS Encounter Location Date Diagnosis [facility] [address] [address] May, Chronic obstructive pulmonary disease with acute exacerbation J44.1 and Tobacco abuse Z72.0 [facility] [address] [address] 67[address] May, Chronic obstructive pulmonary disease with acute exacerbation J44.1 [facility] [address] [address] Apr, [facility] [id number] [place] [address] 43240- 9554 Apr, [facility] [id number] [place] [address] 62786- 6311 Feb, Diabetes E11.9 ; Chronic obstructive pulmonary disease with (acute) exacerbation J44.1 and Encounter for immunization Z23 [facility] [id number] [place] [address] 56691- 7200 Jan, COPD exacerbation J44.1 [facility] [id number] [place] [address] 31947- 1021 Jan, Dental abscess K04.7 [facility] [id number] [place] [address] 96830- 9333 Jan, COPD exacerbation J44.1 and Acute on chronic systolic congestive heart failure I50.23 [facility] [id number] [place] [address] 17064- 2292 Dec, [facility] [id number] [place] [address] 92764- 1380 Dec, [facility] [id number] [place] [address] 02901- 2190 Nov, [facility] [id number] [place] [address] 28962- 8251 Nov, COPD with exacerbation J44.1 and Urinary tract infection without hematuria, site unspecified N39.0 [facility] [id number] [place] [address] 10066- 4579 Nov, Chronic obstructive pulmonary disease, unspecified COPD type J44.9 [facility] [id number] [place] [address] 82011- 2097 Oct, [facility] [id number] [place] [address] 02804- 4062 Oct, [facility] [address] [address]- 4520 Oct, [facility] [address] [address]- 4375 Oct, [facility] [address] [address]- 2990 Oct, Thrush B37.0 [facility] [address] [place] [address] 96554- 3319 Sep, COPD with exacerbation J44.1 and Anxiety F41.9 [facility] [address] [address]- 5941 Sep, [facility] [address] [address]- 5402 Sep, [facility] [address] [address]- 2711 Sep, [facility] [address] [address]- 5971 Sep, Acute congestive heart failure, unspecified heart failure type I50.9 and Anxiety disorder, unspecified F41.9 [facility] [address] [address]- 7191 Sep, Heart failure, unspecified HF chronicity, unspecified heart failure type I50.9 [facility] [address] [address] 3730 Sep, [facility] [address] [address]- 3521 Aug, Chronic obstructive pulmonary disease with acute exacerbation J44.1 [facility] [address] [address]- 4599 Aug, [facility] [address] [address]- 5944 Aug, [facility] [address] [address]- 4113 July, [facility] [id number] [place] [address] 00772- 0952 July, [facility] [id number] [place] [address] 87777- 4459 July, Diabetes E11.9 and Chronic obstructive pulmonary disease with acute exacerbation J44.1 [facility] [id number] [place] [address] 02031- 1769 Jun, Chronic obstructive pulmonary disease with acute exacerbation J44.1 ; Diabetes E11.9 and Tobacco abuse Z72.0 [facility] [id number] [place] [address] 52003- 9481 Jun, [facility] [id number] [place] [address] 84875- 0499 Jun, [facility] [id number] [place] [address] 21816- 2030 May, [facility] [id number] [place] [address] 55484- 3562 May, [facility] [address] [address] May, [facility] [address] [address]- 2347 16 May, 2017 [facility] [id number] [place] [address] 27888- 9569 15 May, 2017 [facility] [id number] [place] [address] 88385- 2638 14 May, 2017 Diarrhea, unspecified type R19.7 and Intractable cyclical vomiting with nausea G43.A1 [facility] [address] [address]- 0886 May, [facility] [id number] [place] [address] 32119- 9426 May, [facility] [id number] [place] [address] 01730- 9923 Apr, COPD exacerbation J44.1 ; Esophageal candidiasis B37.81 ; Other acute gastritis with hemorrhage K29.01 and Acute posthemorrhagic anemia D62 [facility] [id number] [place] [address] 97643- 4996 Apr, Viral illness B34.9 and COPD exacerbation J44.1 [facility] [id number] [place] [address] 72358 -9775 Apr, Shortness of breath R06.02 and Pneumonia of both lower lobes due to infectious organism J18.9 [facility] [id number] [place] [address] 06919 -4806 Mar, COPD with acute exacerbation J44.1 [place] [address] 84442- 9487 Mar, Chronic obstructive pulmonary disease with acute exacerbation J44.1 and Diabetes E11.9 [facility] [id number] [place] [address] 67128- 2030 Mar, [facility] [id number] [place] [address] 17632- 3376 Mar, [facility] [id number] [place] [address] 02712 -9187 Mar, COPD exacerbation J44.1 [facility] [id number] [place] [address] 71061- 9339 Mar, [facility] [id number] [place] [address] 88511- 0600 Mar, Migraine G43.909 ; Hypokalemia E87.6 and Type 2 diabetes mellitus without complications E11.9 [facility] [id number] [place] [address] 17473- 6327 Feb, [facility] [id number] [place] [address] 72846- 7916 Feb, [facility] [id number] [place] [address] 64907- 3220 Feb, Methamphetamine use disorder, moderate, 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 ; Major depressive disorder, recurrent, moderate F33.1 ; Anxiety disorder, unspecified F41.9 and Tobacco abuse Z72.0 [facility] [id number] [place] [address] 98028- 8735 Jan, Major depressive disorder, recurrent, moderate F33.1 [facility] [id number] [place] [address] 96494- 0055 Jan, [facility] [id number] [place] [address] 62803- 7290 Jan, [facility] [id number] [place] [address] 32915- 2836 Jan, Major depressive disorder, recurrent, moderate F33.1 [facility] [id number] [place] [address] 24869- 9748 Jan, Major depressive disorder, recurrent, moderate F33.1 ; Anxiety disorder, unspecified F41.9 ; Methamphetamine use disorder, moderate, 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 and Tobacco abuse Z72.0 [facility] [id number] [place] [address] 14035- 9012 Jan, [facility] [id number] [place] [address] 74068- 7885 Jan, Chronic obstructive pulmonary disease with acute exacerbation J44.1 and Diabetes E11.9 [facility] [id number] [place] [address] 14729- 0775 Jan, [facility] [id number] [place] [address] 87503- 5904 Jan, [facility] [id number] [place] [address] 22391- 2264 24 Oct, 2017 Acute respiratory failure with hypoxia J96.01 ; Chronic bronchitis, unspecified chronic bronchitis type J42 and Tobacco use Z72.0 [facility] [id number] [place] [address] 00388- 1937 Dec, [facility] [address] [place] [address] [phone] Nov, Dental caries K02.9 and Dental examination Z01.20 [facility] [id number] [place] [address] 71622- 3849 Nov, Major depressive disorder, recurrent, moderate F33.1 ; Anxiety disorder, unspecified F41.9 and 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 [facility] [id number] [place] [address] [phone] Oct, Dental examination Z01.20 [facility] [id number] [place] [address] 56344- 9726 Oct, [facility] [id number] [place] [address] 35863- 9707 Oct, Diabetes E11.9 and Thrush B37.0 [facility] [id number] [place] [address] 67729- 4705 Oct, [facility] [id number] [place] [address] 81112- 0449 Oct, [facility] [id number] [place] [address] 51997- 5198 Oct, [facility] [id number] [place] [address] 34711- 5963 Sep, Major depressive disorder, recurrent, moderate F33.1 ; Anxiety disorder, unspecified F41.9 and Bipolar disorder, unspecified F31.9 [facility] [id number] [place] [address] 24198- 1402 Sep, Acute exacerbation of chronic obstructive pulmonary disease (COPD) J44.1 and Migraine G43.909 [facility] [id number] [address]- 1540 Sep, [facility] [id number] [id number] Sep, [facility] [address] [address]- 3470 Sep, Acute exacerbation of chronic obstructive pulmonary disease (COPD) J44.1 [facility] [address] [address] -8390 Sep, Acute exacerbation of chronic obstructive pulmonary disease (COPD) J44.1 [facility] [address] [address]- 2317 Aug, [facility] [address] [address]- 3789 Aug, Major depressive disorder, recurrent, moderate F33.1 ; Anxiety disorder, unspecified F41.9 and 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 [facility] [address] [address]- 6605 Aug, Wheezing R06.2 ; Non morbid obesity due to excess calories E66.09 ; Migraine without aura and without status migrainosus, not intractable G43.009 and Tobacco abuse Z72.0 [facility] [id number] [id number] 14 Aug, 2016 Encounter for dental examination Z01.20 [facility] [address] [address]- 9304 02 Aug, 2016 Major depressive disorder, recurrent, moderate F33.1 ; Anxiety disorder, unspecified F41.9 and 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 [facility] [address] [address]- 3144 July, [facility] [address] [address]- 3695 July, [facility] [id number] [address]- 8274 July, [facility] [id number] [place] [address] 29424- 5813 July, Diabetes E11.9 [facility] [id number] [place] [address] 82932- 1140 Jun, Major depressive disorder, recurrent, moderate F33.1 [facility] [id number] [place] [address] 78158- 2309 Jun, Major depressive disorder, recurrent, moderate F33.1 ; 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 ; Generalized anxiety disorder F41.1 and Bipolar disorder, unspecified F31.9 [facility] [id number] [place] [address] 15733- 7367 Jun, Diabetes E11.9 ; Migraine G43.909 ; Thrush B37.0 and Wheezing R06.2 [facility] [address] [id number] Jun, Dental examination Z01.20 [facility] [id number] [place] [address] 71891- 3059 Jun, [facility] [id number] [place] [address] 45755- 8723 Jun, Major depressive disorder, recurrent, moderate F33.1 ; Anxiety disorder, unspecified F41.9 and 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 [facility] [address] [place] [address] 49908- 4532 Jun, [facility] [id number] [place] [address] 34204- 1358 Jun, Wheezing R06.2 [facility] [address] [id number] Jun, Dental caries K02.9 [facility] [id number] [place] [address] 63898- 1566 Jun, Major depressive disorder, recurrent, moderate F33.1 ; Anxiety disorder, unspecified F41.9 and 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 [facility] [facility] [id number] [place] [address] 16863- 3272 Jun, RLQ abdominal pain R10.31 ; Diabetes E11.9 ; Obesity, unspecified obesity severity, unspecified obesity type E66.9 ; Wheezing R06.2 and Abnormal urinalysis R82.90 [place] [address] 93642- 5457 May, [facility] [facility] [address] 74312- 0071 May, Well woman exam Z01.419 ; Breast cancer screening Z12.39 ; Cervical cancer screening Z12.4 ; Urinary frequency R35.0 ; Edema, unspecified type R60.9 and Chronic constipation K59.09 [facility] [address] 96533- 8712 May, Major depressive disorder, recurrent, moderate F33.1 ; Anxiety disorder, unspecified F41.9 and 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 [facility] [id number] [place] [address] [id number] May, Dental examination Z01.20 [facility] [id number] [place] [address] 93931- 7685 May, [place] [address] 51619- 7949 May, [facility] [address] 40096- 5227 May, Chronic constipation K59.09 [facility] [id number] [place] [address] 68207- 4770 Apr, [facility] [id number] [place] [address] 90582- 5884 Apr, Major depressive disorder, recurrent, moderate F33.1 ; Anxiety disorder, unspecified F41.9 and 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 [facility] [id number] [place] [address] 23788- 9473 Apr, [facility] [id number] [place] [address] 54093- 8868 Mar, Major depressive disorder, recurrent, moderate F33.1 [facility] [id number] [place] [address] 74423- 6871 Mar, Major depressive disorder, recurrent, moderate F33.1 ; Generalized anxiety disorder F41.1 and Bipolar I disorder, most recent episode depressed with anxious distress F31.30 [facility] [facility] [id number] [place] [address] 55090- 2275 Mar, Diabetes E11.9 ; Non morbid obesity due to excess calories E66.09 ; Breast cancer screening Z12.39 and Encounter for immunization Z23 [facility] [id number] [place] [address] 44760- 2980 Mar, Major depressive disorder, recurrent, moderate F33.1 ; Anxiety disorder, unspecified F41.9 and 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 [facility] [address] [place] [address] 32938- 0752 Mar, [facility] [id number] [place] [address] 51436- 7437 Feb, Major depressive disorder, recurrent, moderate F33.1 ; Anxiety disorder, unspecified F41.9 and 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 [facility] [place] [id number] [place] [address] 88556- 4971 Feb, [facility] [id number] [place] [address] 28139- 6763 Feb, [facility] [id number] [place] [address] 39626- 5829 Jan, Major depressive disorder, recurrent, moderate F33.1 ; Generalized anxiety disorder F41.1 and Bipolar disorder, current episode depressed, severe, without psychotic features F31.4 [facility] [address] [place] [address] 68488- 5641 Jan, Major depressive disorder, recurrent, moderate F33.1 ; Anxiety disorder, unspecified F41.9 and 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 [facility] [id number] [place] [address] 91375- 6692 Jan, Bronchitis J40 [facility] [address] 36224- 4369 Jan, [facility] [id number] [place] [address] 31546- 0516 Jan, [facility] [id number] [place] [address] 86229- 7904 Jan, Elbow injury, right, initial encounter S59.901A ; Multiple contusions T14.8 and Cervical strain, acute, initial encounter S16.1XXA [facility] [id number] [place] [address] 79141- 8202 Dec, Major depressive disorder, recurrent, moderate F33.1 ; Generalized anxiety disorder F41.1 and Bipolar disorder with depression F31.30 [facility] [id number] [place] [address] 22698- 2214 Dec, [facility] [id number] [place] [address] 68482- 3095 Dec, [facility] [id number] [place] [address] 24452- 9839 Dec, [facility] [id number] [place] [address] 24898- 0055 Dec, [facility] [id number] [place] [address] 82319- 5176 Dec, Yeast infection B37.9 [place] [id number] [address]- 8381 Dec, Pneumonia of both lungs due to methicillin resistant Staphylococcus aureus (MRSA), unspecified part of lung J15.212 and Benzodiazepine overdose, accidental or unintentional, subsequent encounter T42.4X1D [facility] [address] [address]- 2275 Dec, [facility] [id number] [place] [address] 66855- 2193 Dec, [facility] [id number] [place] [address] 60713- 1839 Dec, Knee pain, left M25.562 and Edema, unspecified type R60.9 [facility] [id number] [place] [address] 40870- 6792 Dec, [facility] [id number] [place] [address] 64616- 2502 Dec, Anxiety disorder, unspecified F41.9 and Bipolar disorder, unspecified F31.9 [facility] [facility] [address] [place] [address] 00553- 7168 Nov, Major depressive disorder, recurrent, moderate F33.1 ; Anxiety disorder, unspecified F41.9 and 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 [facility] [id number] [address] Nov, [place] [address] [id number] [place] [phone] Nov, Migraine without aura and without status migrainosus, not intractable G43.009 [place] [address] [id number] [place] [phone] Nov, Migraine G43.909 [place] [address] [id number] [place] [phone] Nov, [place] [address] [address] [id number] [place] [address] Nov, Major depressive disorder, recurrent, moderate F33.1 ; Anxiety disorder, unspecified F41.9 and 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 [facility] [id number] [place] [address] 77414- 0245 Oct, Chronic constipation K59.09 and Obesity, unspecified obesity severity, unspecified obesity type E66.9 [facility] [id number] [place] [address] 08634- 5756 Oct, Obesity, unspecified obesity severity, unspecified obesity type E66.9 ; Chronic constipation K59.09 and Anxiety disorder, unspecified F41.9 [facility] [id number] [place] [address] 23663- 5481 Oct, [facility] [id number] [place] [address] 42101- 9718 Sep, Diabetes E11.9 ; Edema, unspecified type R60.9 ; Varicose vein of leg I83.90 and Obesity, unspecified obesity severity, unspecified obesity type E66.9 [facility] [id number] [place] [address] 83791- 3954 Sep, Edema, unspecified type R60.9 ; Diabetes E11.9 and Knee pain , left M25.562 [facility] [id number] [place] [address] 33478- 1418 Sep, [facility] [id number] [place] [address] 35490- 9309 Sep, [facility] [id number] [place] [address] 48612- 7753 Sep, Major depressive disorder, recurrent, moderate F33.1 ; Generalized anxiety disorder F41.1 and Bipolar disorder, unspecified F31.9 [facility] [id number] [place] [address] 67508- 7814 Aug, Chondromalacia of left knee M94.262 [facility] [id number] [place] [address] 72461- 7373 24 Aug, 2015 Major depressive disorder, recurrent, moderate F33.1 ; Anxiety disorder, unspecified F41.9 and 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 [facility] [id number] [place] [address] 11127- 1864 Aug, [facility] [id number] [place] [address] 72932- 3074 Aug, Osteoarthritis of left knee M17.9 [facility] [id number] [place] [address] 76903- 8634 Aug, [facility] [id number] [place] [address] 05081- 9570 July, Major depressive disorder, recurrent, moderate F33.1 ; Anxiety disorder, unspecified F41.9 and 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 [facility] [id number] [place] [address] 18623- 2158 July, [facility] [id number] [place] [address] 45710- 6887 July, Chronic constipation K59.09 [facility] [id number] [place] [address] 90071- 7231 Jun, [facility] [id number] [place] [address] 12821- 5192 15 Jun, 2015 [facility] [id number] [place] [address] 79469- 0591 14 Jun, 2015 Osteoarthritis of left knee M17.9 [facility] [id number] [place] [address] 92851- 7918 Jun, [facility] [id number] [place] [address] 21198- 6722 Jun, Generalized anxiety disorder F41.1 ; Bipolar disorder, unspecified F31.9 and Major depressive disorder, recurrent, moderate F33.1 [facility] [address] 51063- 0788 Jun, Migraine G43.909 [facility] [address] 34414- 0935 Jun, Left knee pain M25.562 ; Chronic constipation K59.09 ; Dry mouth R68.2 ; Yeast vaginitis B37.3 and Memory loss R41.3 [facility] [address] 50654- 7674 Jun, [facility] [address] 63435- 0073 May, [facility] [address] 18774- 5172 May, [facility] [address] 53516- 3656 May, [facility] [address] 19197- 2431 May, [facility] [address] 77317- 1693 May, Acute bronchitis with COPD J44.0 ; Knee pain, left M25.562 and Encounter for tobacco use cessation counseling Z71.6 [facility] [address] 00356- 2954 May, [facility] [address] 66623- 5008 Apr, Diabetes E11.9 ; TMJ (sprain of temporomandibular joint) S03.4XXA ; Tobacco abuse Z72.0 ; Migraine G43.909 and Anxiety F41.9 [facility] [id number] [place] [address] 10328- 1713 Apr, Generalized anxiety disorder F41.1 and Bipolar disorder, unspecified F31.9 [facility] [address] [address] 2844 24 Apr, 2015 Major depressive disorder, recurrent, moderate F33.1 ; Anxiety disorder, unspecified F41.9 and 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 [facility] [address] [address]- 1016 Apr, [facility] [id number] [place] [address] 07688- 1245 Mar, [facility] [id number] [place] [address] 46563- 9646 Feb, [facility] [id number] [place] [address] 18860- 2183 Feb, Major depressive disorder, recurrent, moderate F33.1 ; Anxiety disorder, unspecified F41.9 and 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 [facility] [id number] [place] [address] 09949- 6365 Feb, [facility] [id number] [place] [address] 92818- 0738 Feb, Generalized anxiety disorder F41.1 and Bipolar disorder, unspecified F31.9 [facility] [address] [address]- 1888 30 Jan, 2015 [facility] [address] [address]- 8576 18 Jan, 2015 [facility] [address] [address]- 7003 Jan, Bipolar disorder, unspecified F31.9 and Generalized anxiety disorder F41.1 [facility] [address] [address]- 4430 14 Dec, 2014 [facility] [address] [address]- 5910 Dec, Bipolar disorder, unspecified F31.9 and Generalized anxiety disorder F41.1 [facility] [id number] [place] [address] 04073- 5465 Dec, Generalized anxiety disorder F41.1 and Major depressive disorder, recurrent, moderate F33.1 [facility] [id number] [place] [address] 06057- 3540 Oct, Headache 784.0 ; Cough 786.2 ; Vomiting and diarrhea 787.03 and Dysuria 788.1 [facility] [id number] [place] [address] 46593- 3379 Aug, [facility] [address] 52389- 7351 Aug, Headache 784.0 and Shortness of breath 786.05 [facility] [id number] [place] [address] 15924- 5592 Aug, [facility] [id number] [place] [address] 41899- 7351 Aug, Migraine 346.90 [facility] [id number] [place] [address] 83454- 0482 Jun, [facility] [id number] [place] [address] 59775- 6324 Jun, [facility] [id number] [place] [address] 77445- 8833 May, [facility] [id number] [place] [address] 47359- 4715 May, [facility] [id number] [place] [address] 82583- 5219 May, [facility] [id number] [place] [address] 52228- 5770 May, [facility] [id number] [place] [address] 84397- 0841 May, [facility] [id number] [place] [address] 93220- 9120 May, [facility] [place] [facility] [address] [id number] [place] [address]- 9003 Apr, 2014 [facility] [place] [facility] [address] [id number] [place] 8806 Apr, 2014 [facility] [place] [facility] [address] [id number] [place] [address]- 6826 Apr, 2014 [facility] [place] [facility] [address] [id number] [place] [address]- 5327 Apr, [facility] [place] [facility] [address] [id number] [place] [address]- 2868 Apr, [facility] [place] [facility] [address] [id number] [place] [address]- 3366 Mar, [facility] [place] [facility] [address] [id number] [place] [address]- 2049 Mar, [facility] [place] [facility] [address] [id number] [place] [address]- 4311 Mar, [facility] [place] [facility] [address] [id number] [place] [address]- 4240 Mar, [facility] [place] [facility] [address] [facility] [id number] [place] [address]- 6246 Feb, [facility] [place] [facility] [address] [id number] [place] [address]- 4958 19 Feb, 2014 [facility] [place] [facility] [address] [id number] [place] [address]- 5591 18 Feb, 2014 [facility] [place] [facility] [address] [id number] [place] [address]- 4293 18 Feb, 2014 [facility] [place] [facility] [address] [id number] [place] [address]- 7439 16 Feb, 2014 [facility] [place] [facility] [address] [id number] [place] 4751 Feb, [facility] [place] [facility] [address] [id number] [place] [address]- 6260 Feb, [facility] [place] [facility] [address] [id number] [place] [address]- 9444 Feb, [facility] [place] [facility] [address] [id number] [place] 1122 Feb, [facility] [place] [facility] [address] [id number] [place] [address]- 3986 Feb, [facility] [place] [facility] [address] [id number] [place] [address]- 5767 Feb, [facility] [place] [facility] [address] [id number] [place] [address]- 4739 Feb, [facility] [place] [facility] [address] [id number] [place] [address]- 6941 Jan, [facility] [place] [facility] [address] [id number] [place] [address]- 2778 Jan, [facility] [place] [facility] [address] [id number] [place] [address]- 8682 Dec, [facility] [place] [facility] [address] [id number] [place] [address]- 6532 Dec, [facility] [place] [facility] [address] [id number] [place] [address]- 3156 Dec, [facility] [place] [facility] [address] [id number] [place] [address]- 6491 Dec, [facility] [place] [facility] [address] [id number] [place] [address]- 2478 Dec, [facility] [place] [facility] [address] [id number] [place] [address]- 2479 Dec, [facility] [place] [facility] [address] [id number] [place] [address]- 1863 Sep, [facility] [place] [facility] [address] [id number] [place] [address]- 1351 Sep, [facility] [place] [facility] [address] [id number] [place] [address]- 2552 Sep, [facility] [place] [facility] [address] [id number] [place] [address]- 4238 Sep, [facility] [place] [facility] [address] [id number] [place] [address]- 4702 Sep, [facility] [place] [facility] [address] [id number] [place] [address]- 5504 Sep, [facility] [place] [facility] [address] [id number] [place] [address]- 1396 Sep, [facility] [place] [facility] [address] [id number] [place] [address]- 4280 Sep, [facility] [place] [facility] [address] [id number] [place] [address]- 0503 Sep, [facility] [place] [facility] [address] [id number] [place] [address]- 0099 Sep, [facility] [place] [facility] [address] [id number] [place] [address]- 3877 Aug, [facility] [place] [facility] [address] [id number] [place] [address]- 9133 Aug, [facility] [place] [facility] [address] [id number] [place] [address]- 2455 Aug, [facility] [place] [facility] [address] [id number] [place] [address]- 2398 Aug, [facility] [place] [facility] [address] [id number] [place] [address]- 2464 Aug, [facility] [place] [facility] [address] [id number] [place] [address]- 9849 Aug, [facility] [place] [facility] [address] [id number] [place] [address]- 1526 Aug, [facility] [place] [facility] [address] [id number] [place] [address]- 1549 Aug, [facility] [place] [facility] [address] [id number] [place] [address]- 4418 Aug, [facility] [place] [facility] [address] [id number] [place] [address]- 0013 Aug, [facility] [place] [facility] [address] [id number] [place] [address]- 5669 Aug, [facility] [place] [facility] [address] [id number] [place] [address]- 9262 Aug, [facility] [place] [facility] [address] [id number] [place] [address]- 6808 Aug, [facility] [place] [facility] [address] [id number] [place] [address]- 0611 July, [facility] [place] [facility] [address] [id number] [place] [address]- 5672 July, [facility] [address] [id number] [place] [address]- 5371 July, [facility] [place] [facility] [address] [id number] [place] [address]- 4217 July, [facility] [address] [id number] [place] [address]- 7125 July, [facility] [place] [facility] [address] [id number] [place] [address]- 0831 July, [facility] [place] [facility] [address] [id number] [place] [address]- 3263 July, [facility] [place] [facility] [address] [id number] [place] [address]- 9897 Jun, [facility] [place] [facility] [address] [id number] [place] [address]- 9215 Jun, [facility] [place] [facility] [address] [id number] [place] [address]- 2692 Jun, [facility] [place] [facility] [address] [id number] [place] [address]- 0973 16 Jun, 2013 [facility] [place] [facility] [address] [id number] [place] [address]- 9189 16 Jun, 2013 [facility] [place] [facility] [address] [id number] [place] [address]- 7818 Jun, [facility] [place] [facility] [address] [id number] [place] [address]- 7007 Jun, [facility] [place] [facility] [address] [id number] [place] [address]- 3615 17 May, 2013 [facility] [place] [facility] [address] [id number] [place] [address]- 6192 17 May, 2013 [facility] [place] [facility] [address] [id number] [place] [address]- 0016 14 May, 2013 [facility] [place] [facility] [address] [id number] [place] [address]- 2687 14 May, 2013 [facility] [place] [facility] [address] [id number] [place] [address]- 1891 13 May, 2013 [facility] [place] [facility] [address] [id number] [place] [address]- 1707 13 May, 2013 [facility] [place] [facility] [address] [id number] [place] [address]- 6940 10 May, 2013 [facility] [place] [facility] [address] [id number] [place] [address]- 0452 10 May, 2013 [facility] [place] [facility] [address] [id number] [place] [address]- 0619 07 May, 2013 [facility] [place] [facility] [address] [id number] [place] [address]- 1365 Apr, [facility] [place] [facility] [address] [id number] [place] 7383 Apr, [facility] [place] [facility] [address] [id number] [place] [address]- 7019 18 Apr, 2013 [facility] [place] [facility] [address] [id number] [place] [address]- 0456 Apr, [facility] [place] [facility] [address] [id number] [place] [address]- 5816 Apr, [facility] [place] [facility] [address] [id number] [place] [address]- 1696 Apr, [facility] [place] [facility] [address] [id number] [place] [address]- 7887 Apr, [facility] [place] [facility] [address] [id number] [place] [address]- 7559 Apr, [facility] [place] [facility] [address] [id number] [place] [address]- 2867 Apr, [facility] [place] [facility] [address] [id number] [place] [address]- 9631 Apr, [facility] [place] [facility] [address] [id number] [place] [address]- 1587 Mar, [facility] [place] [facility] [address] [id number] [place] [address]- 6125 Mar, [facility] [place] [facility] [address] [facility] [id number] [place] [address]- 0711 Mar, [facility] [place] [facility] [address] [id number] [place] [address]- 8598 Mar, [facility] [place] [facility] [address] [id number] [place] [address]- 4385 Mar, [facility] [place] [facility] [address] [id number] [place] [address]- 2483 Mar, [facility] [place] [facility] [address] [id number] [place] 2846 Mar, [facility] [place] [facility] [address] [id number] [place] [address]- 0412 Mar, [facility] [place] [facility] [address] [id number] [place] [address]- 7101 Feb, [facility] [place] [facility] [address] [id number] [place] [address]- 0925 Feb, [facility] [place] [facility] [address] [id number] [place] [address]- 7983 Jan, [facility] [place] [facility] [address] [id number] [place] [address]- 6764 Jan, [facility] [place] [facility] [address] [id number] [place] [address]- 2162 Jan, [facility] [place] [facility] [address] [id number] [place] [address]- 6290 Jan, [facility] [place] [facility] [address] [id number] [place] [address]- 3351 Jan, [facility] [place] [facility] [address] [id number] [address]- 6642 Jan, [facility] [place] [facility] [address] [id number] [place] [address]- 8481 Jan, [facility] [place] [facility] [address] [id number] [address]- 2703 05 Jan, 2013 [facility] [place] [facility] [address] [id number] [address]- 6057 Dec, [facility] [place] [facility] [address] [id number] [address]- 9476 10 Dec, 2012 [facility] [place] [facility] [address] [id number] [place] [address]- 6869 10 Dec, 2012 [facility] [place] [facility] [address] [id number] [address]- 2269 20 Nov, 2012 [facility] [place] [facility] [address] [id number] [place] [address]- 6221 13 Nov, 2012 [facility] [place] [facility] [address] [id number] [place] [address]- 6979 12 Nov, 2012 [facility] [place] [facility] [address] [id number] [place] [address]- 4521 Nov, [facility] [place] [facility] [address] [id number] [place] [address]- 8479 Nov, [facility] [place] [facility] [address] [id number] [place] [address]- 7843 Nov, [facility] [place] [facility] [address] [id number] [place] [address]- 1516 Oct, [facility] [place] [facility] [address] [id number] [place] [address]- 7797 Oct, [facility] [place] [facility] [address] [id number] [place] [address]- 4544 Sep, [facility] [place] [facility] [address] [id number] [place] [address]- 1159 Sep, [facility] [place] [facility] [address] [id number] [place] [address]- 3110 Sep, [facility] [place] [facility] [address] [id number] [place] [address]- 0584 Sep, [facility] [place] [facility] [address] [id number] [place] [address]- 5565 Sep, [facility] [place] [facility] [address] [id number] [place] [address]- 8235 Sep, [facility] [place] [facility] [address] [id number] [place] [address]- 2164 Sep, [facility] [place] [facility] [address] [id number] [place] [address]- 3962 Aug, [facility] [place] [facility] [address] [id number] [place] [address]- 4338 Aug, [facility] [place] [facility] [address] [id number] [place] [address]- 6242 Aug, [facility] [place] [facility] [address] [id number] [place] [address]- 5082 Aug, [facility] [address] [id number] [place] [address] Aug, [facility] [address] [id number] [place] [address] Aug, [facility] [address] [id number] [place] [address] July, [facility] [address] [id number] [place] [address] July, [facility] [address] [id number] [place] [address] July, [facility] [address] [id number] [place] [address] July, [facility] [address] [id number] [place] [address] July, [facility] [address] [id number] [place] [address] July, [facility] [address] [id number] [place] [address] Jun, [facility] [address] [id number] [place] [address]67 Jun, [facility] [address] [id number] [place] [address] Jun, [facility] [address] [id number] [place] [address] Jun, [facility] [place] [facility] [address] [id number] [place] [address] Jun, [facility] [place] [facility] [address] [id number] [place] [address] Jun, [facility] [place] [facility] [address] [id number] [place] [address] Jun, [facility] [place] [facility] [address] [id number] [place] [address] May, [facility] [place] [facility] [address] [id number] [place] [address] May, [facility] [place] [facility] [address] [facility] [id number] [place] [address]- [address] 26 Apr, 2012 [facility] [place] [facility] [address] [id number] [place] [address] Apr, 2012 [facility] [place] [facility] [address] [id number] [place] [address]- [address] Apr, 2012 [facility] [place] [facility] [address] [id number] [place] [address] Apr, 2012 [facility] [place] [facility] [address] [facility] [id number] [place] [address]- [address] Apr, [facility] [place] [facility] [address] [id number] [place] [address] 08 Apr, 2012 [facility] [place] [facility] [address] [facility] [id number] [place] [address] 07 Apr, 2012 [facility] [place] [facility] [address] [facility] [id number] [place] [address] 07 Apr, 2012 [facility] [place] [facility] [address] [facility] [id number] [place] [address] 2542 06 Apr, 2012 [facility] [place] [facility] [address] [facility] [id number] [place] [address] Apr, 2012 [facility] [place] [facility] [address] [id number] [place] [address] Apr, 2012 [facility] [place] [facility] [address] [facility] [id number] [place] [address] Mar, [facility] [place] [facility] [address] [id number] [place] [address] Mar, [facility] [place] [facility] [address] [id number] [place] [address] Mar, [facility] [address] [id number] [place] [address] Mar, [facility] [address] [id number] [place] [address] Mar, [facility] [address] [id number] [place] [address] Mar, [facility] [address] [id number] [place] [address] Mar, [facility] [address] [id number] [place] [address] Mar, [facility] [address] [id number] [place] [address] Mar, [facility] [address] [id number] [place] [address] Mar, [facility] [address] [id number] [place] [address] Mar, [facility] [address] [id number] [place] [address] Mar, [facility] [address] [id number] [place] [address] Mar, [facility] [address] [id number] [place] [address] Feb, [facility] [address] [id number] [place] [address] Feb, [facility] [address] [id number] [place] [address] 98[address] Feb, [facility] [address] [id number] [place] [address] Feb, [facility] [address] [id number] [place] [address] 80[address] Feb, [facility] [place] [facility] [address] [id number] [place] [address] Feb, [facility] [place] [facility] [address] [id number] [place] [address] 52[address] Feb, [facility] [place] [facility] [address] [id number] [place] [address] Feb, [facility] [place] [facility] [address] [id number] [place] [address] 3186 Feb, [facility] [place] [facility] [address] [id number] [place] [address] 0733 Feb, [facility] [place] [facility] [address] [id number] [place] [address] 3896 Feb, [facility] [place] [facility] [address] [id number] [place] [address] 9448 Feb, [facility] [place] [facility] [address] [id number] [place] [address] 1296 Feb, [facility] [place] [facility] [address] [id number] [place] [address] 8512 Feb, [facility] [place] [facility] [address] [id number] [place] [address] 27[address] Feb, [facility] [place] [facility] [address] [id number] [place] [address] 9108 Jan, [facility] [place] [facility] [address] [id number] [place] [address]- 0310 Jan, [facility] [place] [facility] [address] [id number] [place] [address] 4640 Jan, [facility] [place] [facility] [address] [id number] [place] [address] 5704 Jan, [facility] [place] [facility] [address] [id number] [place] [address] 1342 Dec, [facility] [place] [facility] [address] [id number] [place] [address] 29 Dec, 2011 [facility] [place] [facility] [address] [id number] [place] [address] 4320 Dec, 2011 [facility] [place] [facility] [address] [id number] [place] [address]- 2956 Dec, 2011 [facility] [place] [facility] [address] [id number] [place] [address] 8784 Dec, 2011 [facility] [place] [facility] [address] [id number] [place] [address] 7618 Dec, 2011 [facility] [place] [facility] [address] [id number] [place] [address] 7331 Dec, 2011 [facility] [place] [facility] [address] [id number] [place] [address] 9212 Dec, 2011 [facility] [place] [facility] [address] [id number] [place] [address] 2106 Dec, [facility] [place] [facility] [address] [id number] [place] [address] 5549 04 Dec, 2011 [facility] [place] [facility] [address] [id number] [place] [address]- 4266 03 Dec, 2011 [facility] [place] [facility] [address] [id number] [place] [address] 5049 25 Sep, 2011 [facility] [place] [facility] [address] [id number] [place] [address]- 2543 24 Sep, 2011 [facility] [place] [facility] [address] [id number] [place] [address]- 254 20 Sep, 2011 [facility] [place] [facility] [address] [id number] [place] [address]- 2546 19 Sep, 2011 [facility] [place] [facility] [address] [id number] [place] [address]- 2546 17 Sep, 2011 [facility] [place] [facility] [address] [id number] [place] [address] 2883 16 Sep, 2011 [facility] [place] [facility] [address] [id number] [place] [address] 2281 14 Sep, 2011 [facility] [place] [facility] [address] [id number] [place] [address]- 7966 13 Sep, 2011 [facility] [place] [facility] [address] [id number] [place] [address]- 7523 12 Sep, 2011 [facility] [place] [facility] [address] [id number] [place] [address] 9896 07 Sep, 2011 [facility] [place] [facility] [address] [id number] [place] [address] 9228 06 Sep, 2011 [facility] [place] [facility] [address] [id number] [place] [address] 5914 06 Sep, 2011 [facility] [place] [facility] [address] [id number] [place] [address] 4277 05 Nov, 2011 [facility] [place] [facility] [address] [id number] [place] [address] 6356 29 Oct, 2011 [facility] [place] [facility] [address] [id number] [place] [address]- 4415 29 Oct, 2011 [facility] [place] [facility] [address] [id number] [place] [address] 2927 28 Oct, 2011 [facility] [place] [facility] [address] [id number] [place] [address]- 7482 28 Oct, 2011 [facility] [place] [facility] [address] [id number] [place] [address]- 8388 23 Oct, 2011 [facility] [place] [facility] [address] [id number] [place] [address]- 5194 Oct, [facility] [place] [facility] [address] [id number] [place] [address] 8609 Oct, [facility] [place] [facility] [address] [id number] [place] [address]- 9922 16 Oct, 2011 [facility] [place] [facility] [address] [id number] [place] [address] 8078 Oct, [facility] [place] [facility] [address] [id number] [place] [address] 4033 Oct, [facility] [place] [facility] [address] [id number] [place] [address] 4092 Oct, [facility] [place] [facility] [address] [id number] [place] [address]- 5211 Sep, [facility] [place] [facility] [address] [id number] [place] [address] 3846 Sep, [facility] [place] [facility] [address] [id number] [place] [address]- 7777 Sep, [facility] [place] [facility] [address] [id number] [place] [address]- 5833 Sep, [facility] [address] [id number] [place] [address]- 2898 Sep, [facility] [place] [facility] [address] [id number] [place] [address]- 0953 Sep, [facility] [place] [facility] [address] [id number] [place] [address]- 3821 Aug, [facility] [place] [facility] [address] [id number] [place] [address]- 6575 July, [facility] [place] [facility] [address] [id number] [place] [address]- 8921 July, [facility] [place] [facility] [address] [id number] [place] [address]- 3457 Jun, [facility] [place] [facility] [address] [id number] [place] [address]- 1768 Jun, [facility] [place] [facility] [address] [id number] [place] [address]- 5236 Jun, [facility] [place] [facility] [address] [id number] [place] [address]- 3367 Jun, [facility] [place] [facility] [address] [id number] [place] [address]- 8243 10 Jun, 2011 [facility] [place] [facility] [address] [id number] [place] [address]- 5291 10 Jun, 2011 [facility] [place] [facility] [address] [id number] [place] [address]- 3346 09 Jun, 2011 [facility] [place] [facility] [address] [id number] [place] [address]- 3498 08 Jun, 2011 [facility] [place] [facility] [address] [id number] [place] [address]- 0984 Jun, [facility] [place] [facility] [address] [id number] [place] [address]- 2121 Jun, [facility] [place] [facility] [address] [id number] [place] [address]- 0695 Jun, [facility] [place] [facility] [address] [id number] [place] [address]- 8320 May, [facility] [place] [facility] [address] [id number] [place] [address]- 8152 16 May, 2011 [facility] [place] [facility] [address] [id number] [place] [address]- 5827 14 May, 2011 [facility] [place] [facility] [address] [id number] [place] [address]- 6718 06 May, 2011 [facility] [place] [facility] [address] [id number] [place] [address]- 2081 Apr, [facility] [place] [facility] [address] [id number] [place] [address]- 6243 28 Apr, 2011 [facility] [place] [facility] [address] [id number] [place] [address]- 7840 27 Apr, 2011 [facility] [place] [facility] [address] [id number] [place] [address]- 8237 23 Apr, 2011 [facility] [place] [facility] [address] [id number] [place] [address]- 2268 Apr, [facility] [address] [id number] [place] [address]- 2630 Apr, [facility] [place] [facility] [address] [id number] [place] [address]- 1218 Apr, [facility] [place] [facility] [address] [id number] [place] [address]- 9255 Apr, [facility] [place] [facility] [address] [id number] [place] [address]- 6260 Mar, [facility] [place] [facility] [address] [id number] [place] [address]- 0300 Mar, [facility] [place] [facility] [address] [id number] [place] [address]- 0750 Mar, [facility] [address] [id number] [place] [address]- 2550 Mar, [facility] [place] [facility] [address] [id number] [place] [address]- 9486 Mar, [facility] [place] [facility] [address] [id number] [place] [address]- 2875 Mar, [facility] [address] [id number] [place] [address]- 7261 Mar, [facility] [address] [id number] [place] [address]- 5929 Mar, [facility] [place] [facility] [address] [id number] [place] [address]- 7937 Mar, [facility] [place] [facility] [address] [id number] [place] [address]- 4331 Mar, [facility] [place] [facility] [address] [id number] [place] [address]- 0681 Mar, [facility] [address] [id number] [place] [address]- 9492 Mar, [facility] [place] [facility] [address] [id number] [place] [address]- 6058 Mar, [facility] [place] [facility] [address] [id number] [place] [address]- 7649 Mar, [facility] [place] [facility] [address] [id number] [place] [address]- 2898 Mar, [facility] [place] [facility] [address] [id number] [place] [address]- 2056 Mar, [facility] [place] [facility] [address] [id number] [place] [address]- 6379 Feb, [facility] [place] [facility] [address] [id number] [place] [address]- 7450 Feb, [facility] [place] [facility] [address] [id number] [place] [address]- 7130 Feb, [facility] [place] [facility] [address] [id number] [place] [address]- 5033 Jan, [facility] [place] [facility] [address] [id number] [place] [address]- 0684 Jan, [facility] [place] [facility] [address] [id number] [place] [address]- 2611 Jan, [facility] [place] [facility] [address] [id number] [place] [address]- 5838 Dec, [facility] [place] [facility] [address] [id number] [place] [address]- 3335 Dec, [facility] [place] [facility] [address] [id number] [place] [address]- 1722 Nov, [facility] [place] [facility] [address] [id number] [place] [address]- 8619 Oct, [facility] [place] [facility] [address] [id number] [place] [address]- 9076 Oct, [facility] [place] [facility] [address] [id number] [place] [address]- 4555 Oct, [facility] [address] [facility] [id number] [place] [address]- 2546 Sep, [facility] [address] [facility] [id number] [place] [address]- 2546 Apr, [facility] [address] [facility] [id number] [place] [address]- 2546 Feb, [facility] [address] [facility] [id number] [place] [address]- 2546 Jan, IMMUNIZATIONS No Known Immunizations SOCIAL HISTORY Never Assessed REASON FOR VISIT EMR-[facility] [place] OF CARE VITAL SIGNS MEDICATIONS No [...] 2/2 Benzos OD, pneumonia MRSA, MAYRA, Hypokalemia-- [facility] 12/20/2015 Hospitalization History COPD exacerbation, Asthma-[facility] 09/21/16 Hospitalization History COPD-[facility] 12/30/2016 Hospitalization History [facility]ARYANNE and dagoberto for inpatient-last around 2006 or so. Hospitalization History [facility] for COPD x2 Mar 2017 Hospitalization History Upper GI bleed at apr 2017 Hospitalization History [facility]- COPD Exacerbation, diarrhea 05/23/2017 Hospitalization History COPD exacerbation-[facility] 06/13/17 Hospitalization History CHF 09/09/2017 Hospitalization History COPD-[facility]I--[facility] 11/2017
--- OUTSIDE RECORDS SUMMARY | 2018-06-30 11:34 | XMS REPORT ---
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 Active Problem TMJ (sprain of temporomandibular joint) S03.4XXA Active 49700247 Problem Migraine G43.909 Active 39963799 Problem Memory loss R41.3 Active 44830538 Problem Chronic constipation K59.09 Active 496498737 Problem Bipolar disorder with depression F31.30 Active 95416515 Problem Bipolar disorder, unspecified F31.9 Active 97424378 Problem Migraine without aura and without status migrainosus, not intractable G43.009 Active 765645287 Problem Chronic bronchitis, unspecified chronic bronchitis type J42 Active 46109566 Problem Methamphetamine use disorder, moderate, 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 Active 86430738 Problem Acute on chronic systolic congestive heart failure I50.23 Active 463151375 Problem Other emphysema J43.8 Active 82221032 Problem COPD exacerbation J44.1 Active 390589862 Problem Generalized anxiety disorder F41.1 Active 68909896 Problem Examination of eyes and vision V72.0 Active 961875921 Problem Diabetes E11.9 Active 886739966 Problem Intractable cyclical vomiting with nausea G43.A1 Active 15969148 Problem Anxiety F41.9 Active 83525711 Problem Chronic obstructive pulmonary disease, unspecified COPD type J44.9 Active 93948748 ALLERGIES No Information ENCOUNTERS Encounter Location Date Diagnosis [facility] [address], [place] [address] May, Chronic obstructive pulmonary disease with acute exacerbation J44.1 and Tobacco abuse Z72.0 [facility] [address], [place] [address] May, Chronic obstructive pulmonary disease with acute exacerbation J44.1 [facility] [address], [place] [address] Apr, [facility] [id number] [place] [address] 07930- 8088 Apr, [facility] [id number] [place] [address] 59921- 4092 Feb, Diabetes E11.9 ; Chronic obstructive pulmonary disease with (acute) exacerbation J44.1 and Encounter for immunization Z23 [facility] [id number] [place] [address] 03055- 2657 Jan, COPD exacerbation J44.1 [facility] [id number] [place] [address] 56630- 6403 Jan, Dental abscess K04.7 [facility] [id number] [place] [address] 59616- 6135 Jan, COPD exacerbation J44.1 and Acute on chronic systolic congestive heart failure I50.23 [facility] [id number] [place] [address] 80963- 2418 Dec, [facility] [id number] [place] [address] 68140- 1775 Dec, [facility] [id number] [place] [address] 34104- 1175 Nov, [facility] [id number] [place] [address] 46719- 7897 Nov, COPD with exacerbation J44.1 and Urinary tract infection without hematuria, site unspecified N39.0 [facility] [id number] [place] [address] 21616- 7177 Nov, Chronic obstructive pulmonary disease, unspecified COPD type J44.9 [facility] [id number] [place] [address] 78144- 2550 Oct, [facility] [id number] [place] [address] 45651- 8688 Oct, [facility] [address], [place] [address] 3144 Oct, [facility] [address], [place] [address] 3[address] Oct, [facility] [address], [place] [address] 7730 Oct, Thrush B37.0 [facility] [id number] [place] [address] 59259- 2490 Sep, COPD with exacerbation J44.1 and Anxiety F41.9 [facility] [address], [place] [address] 4[address] Sep, [facility] [address], [place] [address]- 0119 Sep, [facility] [address], [place] [address] 8132 Sep, [facility] [address], [place] [address] 7526 Sep, Acute congestive heart failure, unspecified heart failure type I50.9 and Anxiety disorder, unspecified F41.9 [facility] [address], [place] [address] 8842 Sep, Heart failure, unspecified HF chronicity, unspecified heart failure type I50.9 [facility] [address], [place] [address] 0379 Sep, [facility] [address], [place] [address] 8580 Aug, Chronic obstructive pulmonary disease with acute exacerbation J44.1 [facility] [address], [place] [address] 9063 Aug, [facility] [address], [place] [address]- 2992 Aug, [facility] [address], [place] [address] 8358 July, [facility] [id number] [place] [address] 90970- 3386 July, [facility] [id number] [place] [address] 55114- 8784 July, Diabetes E11.9 and Chronic obstructive pulmonary disease with acute exacerbation J44.1 [facility] [id number] [place] [address] 66584- 1081 Jun, Chronic obstructive pulmonary disease with acute exacerbation J44.1 ; Diabetes E11.9 and Tobacco abuse Z72.0 [facility] [id number] [place] [address] 37866- 7449 Jun, [facility] [id number] [place] [address] 26023- 8607 Jun, [facility] [id number] [place] [address] 27888- 2768 May, [facility] [id number] [place] [address] 89999- 5704 May, [facility] [address], [place] [address] May, [facility] [address], [place] [address]- 0894 16 May, 2017 [facility] [id number] [place] [address] 81725- 3194 15 May, 2017 [facility] [id number] [place] [address] 28354- 0219 14 May, 2017 Diarrhea, unspecified type R19.7 and Intractable cyclical vomiting with nausea G43.A1 [facility] [address], [place] [address] 3324 May, [facility] [id number] [place] [address] 90362- 1190 May, [facility] [id number] [place] [address] 59387- 5146 Apr, COPD exacerbation J44.1 ; Esophageal candidiasis B37.81 ; Other acute gastritis with hemorrhage K29.01 and Acute posthemorrhagic anemia D62 [facility] [id number] [place] [address] 87449- 3354 Apr, Viral illness B34.9 and COPD exacerbation J44.1 [facility] [id number] [place] [address] 91656 -4591 Apr, Shortness of breath R06.02 and Pneumonia of both lower lobes due to infectious organism J18.9 [facility] [id number] [place] [address] 48717 -6347 Mar, COPD with acute exacerbation J44.1 [facility] [address] 72657- 6693 Mar, Chronic obstructive pulmonary disease with acute exacerbation J44.1 and Diabetes E11.9 [facility] [id number] [place] [address] 52031- 1918 Mar, [facility] [id number] [place] [address] 05040- 8358 Mar, [facility] [id number] [place] [address] 60686 -2984 Mar, COPD exacerbation J44.1 [facility] [id number] [place] [address] 68695- 3140 Mar, [facility] [id number] [place] [address] 29049- 2148 Mar, Migraine G43.909 ; Hypokalemia E87.6 and Type 2 diabetes mellitus without complications E11.9 [facility] [id number] [place] [address] 39958- 8567 Feb, [facility] [id number] [place] [address] 72582- 5079 Feb, [facility] [id number] [place] [address] 99790- 9952 Feb, Methamphetamine use disorder, moderate, 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 ; Major depressive disorder, recurrent, moderate F33.1 ; Anxiety disorder, unspecified F41.9 and Tobacco abuse Z72.0 [facility] [id number] [place] [address] 81569- 3427 Jan, Major depressive disorder, recurrent, moderate F33.1 [facility] [id number] [place] [address] 59032- 9370 Jan, [facility] [id number] [place] [address] 76472- 3140 Jan, [facility] [id number] [place] [address] 68123- 0704 Jan, Major depressive disorder, recurrent, moderate F33.1 [facility] [id number] [place] [address] 86881- 3300 Jan, Major depressive disorder, recurrent, moderate F33.1 ; Anxiety disorder, unspecified F41.9 ; Methamphetamine use disorder, moderate, 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 and Tobacco abuse Z72.0 [facility] [id number] [place] [address] 08001- 8579 Jan, [facility] [id number] [place] [address] 09018- 2597 Jan, Chronic obstructive pulmonary disease with acute exacerbation J44.1 and Diabetes E11.9 [facility] [id number] [place] [address] 17516- 4044 Jan, [facility] [id number] [place] [address] 65247- 3865 Jan, [facility] [id number] [place] [address] 04440- 2250 24 Oct, 2017 Acute respiratory failure with hypoxia J96.01 ; Chronic bronchitis, unspecified chronic bronchitis type J42 and Tobacco use Z72.0 [facility] [id number] [place] [address] 17407- 5486 Dec, [facility] [id number] [place] [address] [id number] Nov, Dental caries K02.9 and Dental examination Z01.20 [facility] [id number] [place] [address] 11609- 4950 Nov, Major depressive disorder, recurrent, moderate F33.1 ; Anxiety disorder, unspecified F41.9 and 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 [facility] [id number] [place] [address] [id number] Oct, Dental examination Z01.20 [facility] [id number] [place] [address] 41265- 2294 Oct, [facility] [id number] [place] [address] 60104- 7386 Oct, Diabetes E11.9 and Thrush B37.0 [facility] [id number] [place] [address] 59551- 8561 Oct, [facility] [id number] [place] [address] 06878- 1910 Oct, [facility] [id number] [place] [address] 59820- 8618 Oct, [facility] [id number] [place] [address] 25115- 2491 Sep, Major depressive disorder, recurrent, moderate F33.1 ; Anxiety disorder, unspecified F41.9 and Bipolar disorder, unspecified F31.9 [facility] [id number] [place] [address] 35521- 5292 Sep, Acute exacerbation of chronic obstructive pulmonary disease (COPD) J44.1 and Migraine G43.909 [facility] [id number] [address]- 0961 Sep, [facility] [place] [id number] [address] Sep, [facility] [address], [place] [address]- 0476 Sep, Acute exacerbation of chronic obstructive pulmonary disease (COPD) J44.1 [facility] [address], [place] [address]2281 Sep, Acute exacerbation of chronic obstructive pulmonary disease (COPD) J44.1 [facility] [address], [place] [address]- 7519 Aug, [facility] [address], [place] [address]- 1409 Aug, Major depressive disorder, recurrent, moderate F33.1 ; Anxiety disorder, unspecified F41.9 and 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 [facility] [address], [place] [address]- 5630 Aug, Wheezing R06.2 ; Non morbid obesity due to excess calories E66.09 ; Migraine without aura and without status migrainosus, not intractable G43.009 and Tobacco abuse Z72.0 [facility] [id number] [id number] 14 Aug, 2016 Encounter for dental examination Z01.20 [facility] [address], [place] [address]- 0841 02 Aug, 2016 Major depressive disorder, recurrent, moderate F33.1 ; Anxiety disorder, unspecified F41.9 and Other 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 [facility] [address], [place] [address]- 6715 July, [facility] [address], [place] [address]- 6745 July, [facility] [id number] [address]- 7686 July, [facility] [id number] [place] [address] 96095- 7078 July, Diabetes E11.9 [facility] [id number] [place] [address] 81514- 0262 Jun, Major depressive disorder, recurrent, moderate F33.1 [facility] [id number] [place] [address] 40126- 9035 Jun, Major depressive disorder, recurrent, moderate F33.1 ; 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 ; Generalized anxiety disorder F41.1 and Bipolar disorder, unspecified F31.9 [facility] [id number] [place] [address] 98959- 6038 Jun, Diabetes E11.9 ; Migraine G43.909 ; Thrush B37.0 and Wheezing R06.2 [facility] [address] [id number] Jun, Dental examination Z01.20 [facility] [id number] [place] [address] 75409- 2204 Jun, [facility] [id number] [place] [address] 35361- 9756 Jun, Major depressive disorder, recurrent, moderate F33.1 ; Anxiety disorder, unspecified F41.9 and 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 [facility] [id number] [place] [address] 27062- 5812 Jun, [facility] [id number] [place] [address] 01738- 2733 Jun, Wheezing R06.2 [facility] [address] [id number] Jun, Dental caries K02.9 [facility] [id number] [place] [address] 20838- 3426 Jun, Major depressive disorder, recurrent, moderate F33.1 ; Anxiety disorder, unspecified F41.9 and 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 [facility] [id number] [place] [address] 85525- 2997 Jun, RLQ abdominal pain R10.31 ; Diabetes E11.9 ; Obesity, unspecified obesity severity, unspecified obesity type E66.9 ; Wheezing R06.2 and Abnormal urinalysis R82.90 [facility] [address] 74773- 1115 May, [facility] [address] 00090- 5785 May, Well woman exam Z01.419 ; Breast cancer screening Z12.39 ; Cervical cancer screening Z12.4 ; Urinary frequency R35.0 ; Edema, unspecified type R60.9 and Chronic constipation K59.09 [facility] [address] 15155- 6460 May, Major depressive disorder, recurrent, moderate F33.1 ; Anxiety disorder, unspecified F41.9 and 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 [facility] [id number] [place] [address] [id number] May, Dental examination Z01.20 [facility] [id number] [place] [address] 46284- 2808 May, [facility] [address] 18598- 2331 May, [facility] [address] 18541- 8997 May, Chronic constipation K59.09 [facility] [id number] [place] [address] 05163- 1968 Apr, [facility] [id number] [place] [address] 85360- 3409 Apr, Major depressive disorder, recurrent, moderate F33.1 ; Anxiety disorder, unspecified F41.9 and 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 [facility] [id number] [place] [address] 69161- 0482 Apr, [facility] [id number] [place] [address] 47059- 7036 Mar, Major depressive disorder, recurrent, moderate F33.1 [facility] [id number] [place] [address] 58141- 8545 Mar, Major depressive disorder, recurrent, moderate F33.1 ; Generalized anxiety disorder F41.1 and Bipolar I disorder, most recent episode depressed with anxious distress F31.30 [facility] [id number] [place] [address] 90823- 0579 Mar, Diabetes E11.9 ; Non morbid obesity due to excess calories E66.09 ; Breast cancer screening Z12.39 and Encounter for immunization Z23 [facility] [id number] [place] [address] 76352- 4589 Mar, Major depressive disorder, recurrent, moderate F33.1 ; Anxiety disorder, unspecified F41.9 and 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 [facility] [id number] [place] [address] 35880- 5653 Mar, [facility] [id number] [place] [address] 04457- 4685 Feb, Major depressive disorder, recurrent, moderate F33.1 ; Anxiety disorder, unspecified F41.9 and 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 [facility] [id number] [place] [address] 78046- 2709 Feb, [facility] [id number] [place] [address] 50048- 6706 Feb, [facility] [id number] [place] [address] 75469- 4125 Jan, Major depressive disorder, recurrent, moderate F33.1 ; Generalized anxiety disorder F41.1 and Bipolar disorder, current episode depressed, severe, without psychotic features F31.4 [facility] [id number] [place] [address] 90890- 2940 Jan, Major depressive disorder, recurrent, moderate F33.1 ; Anxiety disorder, unspecified F41.9 and 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 [facility] [id number] [place] [address] 68038- 4672 Jan, Bronchitis J40 [facility] [address] 08406- 8414 Jan, [facility] [id number] [place] [address] 73727- 3444 Jan, [facility] [id number] [place] [address] 21273- 3683 Jan, Elbow injury, right, initial encounter S59.901A ; Multiple contusions T14.8 and Cervical strain, acute, initial encounter S16.1XXA [facility] [id number] [place] [address] 45041- 2688 Dec, Major depressive disorder, recurrent, moderate F33.1 ; Generalized anxiety disorder F41.1 and Bipolar disorder with depression F31.30 [facility] [id number] [place] [address] 40377- 9229 Dec, [facility] [id number] [place] [address] 34994- 4547 Dec, [facility] [id number] [place] [address] 02635- 3831 Dec, [facility] [id number] [place] [address] 73849- 0339 Dec, [facility] [id number] [place] [address] 34212- 1296 Dec, Yeast infection B37.9 [place] [id number] [address]- 0857 Dec, Pneumonia of both lungs due to methicillin resistant Staphylococcus aureus (MRSA), unspecified part of lung J15.212 and Benzodiazepine overdose, accidental or unintentional, subsequent encounter T42.4X1D [facility] [address], [place] [address]- 0378 Dec, [facility] [id number] [place] [address] 01945- 9349 Dec, [facility] [id number] [place] [address] 87059- 7757 Dec, Knee pain, left M25.562 and Edema, unspecified type R60.9 [facility] [id number] [place] [address] 91687- 3970 Dec, [facility] [id number] [place] [address] 61591- 2719 Dec, Anxiety disorder, unspecified F41.9 and Bipolar disorder, unspecified F31.9 [facility] [id number] [place] [address] 51366- 5829 Nov, Major depressive disorder, recurrent, moderate F33.1 ; Anxiety disorder, unspecified F41.9 and 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 [facility] [address], [place] [address]- 2360 Nov, [facility] [id number] [place] [address] 02294- 5742 Nov, Migraine without aura and without status migrainosus, not intractable G43.009 [facility] [id number] [place] [address] 49082- 2062 Nov, Migraine G43.909 [facility] [id number] [place] [address] 17237- 9038 Nov, [facility] [address] [address]- 5020 Nov, Major depressive disorder, recurrent, moderate F33.1 ; Anxiety disorder, unspecified F41.9 and 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 [facility] [id number] [place] [address] 98160- 7127 Oct, Chronic constipation K59.09 and Obesity, unspecified obesity severity, unspecified obesity type E66.9 [facility] [id number] [place] [address] 25772- 6689 Oct, Obesity, unspecified obesity severity, unspecified obesity type E66.9 ; Chronic constipation K59.09 and Anxiety disorder, unspecified F41.9 [place] [id number] [place] [address] [phone] Oct, [place] [id number] [place] [address] [phone] Sep, Diabetes E11.9 ; Edema, unspecified type R60.9 ; Varicose vein of leg I83.90 and Obesity, unspecified obesity severity, unspecified obesity type E66.9 [place] [id number] [place] [address] [phone] Sep, Edema, unspecified type R60.9 ; Diabetes E11.9 and Knee pain , left M25.562 [facility] [id number] [place] [address] 22555- 2532 Sep, [facility] [id number] [place] [address] 04667- 7085 Sep, [facility] [id number] [place] [address] 27269- 0778 Sep, Major depressive disorder, recurrent, moderate F33.1 ; Generalized anxiety disorder F41.1 and Bipolar disorder, unspecified F31.9 [facility] [id number] [place] [address] 87661- 7830 Aug, Chondromalacia of left knee M94.262 [facility] [id number] [place] [address] 22345- 3716 24 Aug, 2015 Major depressive disorder, recurrent, moderate F33.1 ; Anxiety disorder, unspecified F41.9 and 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 [facility] [id number] [place] [address] 22040- 4689 Aug, [facility] [id number] [place] [address] 37091- 6642 Aug, Osteoarthritis of left knee M17.9 [facility] [id number] [place] [address] 73310- 2852 Aug, [facility] [id number] [place] [address] 77886- 6670 July, Major depressive disorder, recurrent, moderate F33.1 ; Anxiety disorder, unspecified F41.9 and 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 [facility] [id number] [place] [address] 66114- 0047 July, [facility] [id number] [place] [address] 05576- 0798 July, Chronic constipation K59.09 [facility] [id number] [place] [address] 38706- 8434 Jun, [facility] [id number] [place] [address] 76665- 7364 15 Jun, 2015 [facility] [id number] [place] [address] 99807- 4247 14 Jun, 2015 Osteoarthritis of left knee M17.9 [facility] [id number] [place] [address] 85588- 8758 Jun, [facility] [id number] [place] [address] 33604- 7912 Jun, Generalized anxiety disorder F41.1 ; Bipolar disorder, unspecified F31.9 and Major depressive disorder, recurrent, moderate F33.1 [facility] [address] 11965- 7681 Jun, Migraine G43.909 [facility] [address] 12380- 9781 Jun, Left knee pain M25.562 ; Chronic constipation K59.09 ; Dry mouth R68.2 ; Yeast vaginitis B37.3 and Memory loss R41.3 [facility] [address] 98379- 5491 Jun, [facility] [address] 61279- 6738 May, [facility] [address] 68011- 9114 May, [facility] [address] 30082- 5854 May, [facility] [address] 81164- 2018 May, [facility] [address] 60045- 7041 May, Acute bronchitis with COPD J44.0 ; Knee pain, left M25.562 and Encounter for tobacco use cessation counseling Z71.6 [facility] [address] 03482- 2294 May, [facility] [address] 08365- 6140 Apr, Diabetes E11.9 ; TMJ (sprain of temporomandibular joint) S03.4XXA ; Tobacco abuse Z72.0 ; Migraine G43.909 and Anxiety F41.9 [facility] [id number] [place] [address] 03739- 5905 Apr, Generalized anxiety disorder F41.1 and Bipolar disorder, unspecified F31.9 [facility] [address] [address] 5823 24 Apr, 2015 Major depressive disorder, recurrent, moderate F33.1 ; Anxiety disorder, unspecified F41.9 and 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 [facility] [address] [address] 8216 Apr, [facility] [id number] [place] [address] 60470- 2508 Mar, [facility] [id number] [place] [address] 42554- 2826 Feb, [facility] [id number] [place] [address] 27727- 8324 Feb, Major depressive disorder, recurrent, moderate F33.1 ; Anxiety disorder, unspecified F41.9 and 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 [facility] [id number] [place] [address] 12104- 7399 Feb, [facility] [id number] [place] [address] 36994- 7735 Feb, Generalized anxiety disorder F41.1 and Bipolar disorder, unspecified F31.9 [facility] [address] [address]- 6468 30 Jan, 2015 [facility] [address] [address]- 9626 18 Jan, 2015 [facility] [address] [address]- 5984 Jan, Bipolar disorder, unspecified F31.9 and Generalized anxiety disorder F41.1 [facility] [address] [address]- 7315 14 Dec, 2014 [facility] [address] [address]- 5754 Dec, Bipolar disorder, unspecified F31.9 and Generalized anxiety disorder F41.1 [facility] [id number] [place] [address] 92321- 9578 Dec, Generalized anxiety disorder F41.1 and Major depressive disorder, recurrent, moderate F33.1 [facility] [id number] [place] [address] 26206- 8826 Oct, Headache 784.0 ; Cough 786.2 ; Vomiting and diarrhea 787.03 and Dysuria 788.1 [facility] [id number] [place] [address] 73862- 7704 Aug, [facility] [address] 07162- 1601 Aug, Headache 784.0 and Shortness of breath 786.05 [facility] [id number] [place] [address] 57293- 7147 Aug, [facility] [id number] [place] [address] 53581- 6320 Aug, Migraine 346.90 [facility] [id number] [place] [address] 83991- 0374 Jun, [facility] [id number] [place] [address] 82023- 1170 Jun, [facility] [id number] [place] [address] 03045- 4480 May, [facility] [id number] [place] [address] 34998- 4216 May, [facility] [id number] [place] [address] 74288- 8927 May, [facility] [id number] [place] [address] 67445- 1073 May, [facility] [id number] [place] [address] 24664- 0765 May, [facility] [id number] [place] [address] 25323- 3825 May, [facility] [place] [facility] [address] [id number] [place] [address]- 7622 Apr, 2014 [facility] [place] [facility] [address] [id number] [place] 7836 Apr, 2014 [facility] [place] [facility] [address] [id number] [place] [address]- 8566 Apr, 2014 [facility] [place] [facility] [address] [id number] [place] [address]- 9087 Apr, [facility] [place] [facility] [address] [id number] [place] [address]- 2492 Apr, [facility] [place] [facility] [address] [id number] [place] [address]- 5146 Mar, [facility] [place] [facility] [address] [id number] [place] [address]- 6765 Mar, [facility] [place] [facility] [address] [id number] [place] [address]- 9359 Mar, [facility] [place] [facility] [address] [id number] [place] [address]- 8919 Mar, [facility] [place] [facility] [address] [facility] [id number] [place] [address]- 6668 Feb, [facility] [place] [facility] [address] [id number] [place] [address]- 6485 19 Feb, 2014 [facility] [place] [facility] [address] [id number] [place] [address]- 3586 18 Feb, 2014 [facility] [place] [facility] [address] [id number] [place] [address]- 5078 18 Feb, 2014 [facility] [place] [facility] [address] [id number] [place] [address]- 0170 16 Feb, 2014 [facility] [place] [facility] [address] [id number] [place] 2229 Feb, [facility] [place] [facility] [address] [id number] [place] [address]- 8227 Feb, [facility] [place] [facility] [address] [id number] [place] [address]- 8460 Feb, [facility] [place] [facility] [address] [id number] [place] 8767 Feb, [facility] [place] [facility] [address] [id number] [place] [address]- 5925 Feb, [facility] [place] [facility] [address] [id number] [place] [address]- 6840 Feb, [facility] [place] [facility] [address] [id number] [place] [address]- 1177 Feb, [facility] [place] [facility] [address] [id number] [place] [address]- 7385 Jan, [facility] [place] [facility] [address] [id number] [place] [address]- 7382 Jan, [facility] [place] [facility] [address] [id number] [place] [address]- 3807 Dec, [facility] [place] [facility] [address] [id number] [place] [address]- 1358 Dec, [facility] [place] [facility] [address] [id number] [place] [address]- 6237 Dec, [facility] [place] [facility] [address] [id number] [place] [address]- 3893 Dec, [facility] [place] [facility] [address] [id number] [place] [address]- 5890 Dec, [facility] [place] [facility] [address] [id number] [place] [address]- 7597 Dec, [facility] [place] [facility] [address] [id number] [place] [address]- 8248 Sep, [facility] [place] [facility] [address] [id number] [place] [address]- 6526 Sep, [facility] [place] [facility] [address] [id number] [place] [address]- 8446 Sep, [facility] [place] [facility] [address] [id number] [place] [address]- 7366 Sep, [facility] [place] [facility] [address] [id number] [place] [address]- 9685 Sep, [facility] [place] [facility] [address] [id number] [place] [address]- 6538 Sep, [facility] [place] [facility] [address] [id number] [place] [address]- 8659 Sep, [facility] [place] [facility] [address] [id number] [place] [address]- 1241 Sep, [facility] [place] [facility] [address] [id number] [place] [address]- 2201 Sep, [facility] [place] [facility] [address] [id number] [place] [address]- 1427 Sep, [facility] [place] [facility] [address] [id number] [place] [address]- 1901 Aug, [facility] [place] [facility] [address] [id number] [place] [address]- 4640 Aug, [facility] [place] [facility] [address] [id number] [place] [address]- 7377 Aug, [facility] [place] [facility] [address] [id number] [place] [address]- 0053 Aug, [facility] [place] [facility] [address] [id number] [place] [address]- 9839 Aug, [facility] [place] [facility] [address] [id number] [place] [address]- 5986 Aug, [facility] [place] [facility] [address] [id number] [place] [address]- 8582 Aug, [facility] [place] [facility] [address] [id number] [place] [address]- 1635 Aug, [facility] [address] [id number] [place] [address]- 1009 Aug, [facility] [place] [facility] [address] [id number] [place] [address]- 3211 Aug, [facility] [address] [id number] [place] [address]- 0354 Aug, [facility] [place] [facility] [address] [id number] [place] [address]- 8072 Aug, [facility] [place] [facility] [address] [id number] [place] [address]- 6384 Aug, [facility] [place] [facility] [address] [id number] [place] [address]- 8361 July, [facility] [place] [facility] [address] [id number] [place] [address]- 9070 July, [facility] [address] [id number] [place] [address]- 9099 July, [facility] [place] [facility] [address] [id number] [place] [address]- 7882 July, [facility] [address] [id number] [place] [address]- 2872 July, [facility] [place] [facility] [address] [id number] [place] [address]- 5355 July, [facility] [place] [facility] [address] [id number] [place] [address]- 9761 July, [facility] [place] [facility] [address] [id number] [place] [address]- 1221 Jun, [facility] [place] [facility] [address] [id number] [place] [address]- 8285 Jun, [facility] [place] [facility] [address] [id number] [place] [address]- 9601 Jun, [facility] [place] [facility] [address] [id number] [place] [address]- 3286 16 Jun, 2013 [facility] [place] [facility] [address] [id number] [place] [address]- 0206 16 Jun, 2013 [facility] [place] [facility] [address] [id number] [place] [address]- 5924 Jun, [facility] [place] [facility] [address] [id number] [place] [address]- 6659 Jun, [facility] [place] [facility] [address] [id number] [place] [address]- 7171 17 May, 2013 [facility] [place] [facility] [address] [id number] [place] [address]- 0414 17 May, 2013 [facility] [place] [facility] [address] [id number] [place] [address]- 5474 14 May, 2013 [facility] [place] [facility] [address] [id number] [place] [address]- 9522 14 May, 2013 [facility] [place] [facility] [address] [id number] [place] [address]- 2806 13 May, 2013 [facility] [place] [facility] [address] [id number] [place] [address]- 4713 13 May, 2013 [facility] [place] [facility] [address] [id number] [place] [address]- 3265 10 May, 2013 [facility] [place] [facility] [address] [id number] [place] [address]- 2537 10 May, 2013 [facility] [place] [facility] [address] [id number] [place] [address]- 9808 07 May, 2013 [facility] [place] [facility] [address] [id number] [place] [address]- 2123 Apr, [facility] [place] [facility] [address] [id number] [place] 8251 Apr, [facility] [place] [facility] [address] [id number] [place] [address]- 7731 18 Apr, 2013 [facility] [place] [facility] [address] [id number] [place] [address]- 9776 Apr, [facility] [place] [facility] [address] [id number] [place] [address]- 8786 Apr, [facility] [place] [facility] [address] [id number] [place] [address]- 1076 Apr, [facility] [place] [facility] [address] [id number] [place] [address]- 2433 Apr, [facility] [place] [facility] [address] [id number] [place] [address]- 4996 Apr, [facility] [place] [facility] [address] [id number] [place] [address]- 8677 Apr, [facility] [place] [facility] [address] [id number] [place] [address]- 4270 Apr, [facility] [place] [facility] [address] [id number] [place] [address]- 2590 Mar, [facility] [place] [facility] [address] [id number] [place] [address]- 0285 Mar, [facility] [place] [facility] [address] [facility] [id number] [place] [address]- 5541 Mar, [facility] [place] [facility] [address] [id number] [place] [address]- 8732 Mar, [facility] [place] [facility] [address] [id number] [place] [address]- 9575 Mar, [facility] [place] [facility] [address] [id number] [place] [address]- 2100 Mar, [facility] [place] [facility] [address] [id number] [place] 9186 Mar, [facility] [place] [facility] [address] [id number] [place] [address]- 7560 Mar, [facility] [place] [facility] [address] [id number] [place] [address]- 5570 Feb, [facility] [place] [facility] [address] [id number] [place] [address]- 0017 Feb, [facility] [place] [facility] [address] [id number] [place] [address]- 1396 Jan, [facility] [place] [facility] [address] [id number] [place] [address]- 3983 Jan, [facility] [place] [facility] [address] [id number] [place] [address]- 7647 Jan, [facility] [place] [facility] [address] [id number] [place] [address]- 2400 Jan, [facility] [place] [facility] [address] [id number] [place] [address]- 1419 Jan, [facility] [place] [facility] [address] [id number], [place] [address]- 8074 Jan, [facility] [place] [facility] [address] [id number] [place] [address]- 3046 Jan, [facility] [place] [facility] [address] [id number], [place] [address]- 1330 05 Jan, 2013 [facility] [place] [facility] [address] [id number], [place] [address]- 8279 Dec, [facility] [place] [facility] [address] [id number], [place] [address]- 6555 10 Dec, 2012 [facility] [place] [facility] [address] [id number] [place] [address]- 8102 10 Dec, 2012 [facility] [place] [facility] [address] [id number], [place] [address]- 7702 20 Nov, 2012 [facility] [place] [facility] [address] [id number] [place] [address]- 8681 13 Nov, 2012 [facility] [place] [facility] [address] [id number] [place] [address]- 9204 12 Nov, 2012 [facility] [address] [id number] [place] [address]- 7410 Nov, [facility] [place] [facility] [address] [id number] [place] [address]- 7215 Nov, [facility] [place] [facility] [address] [id number] [place] [address]- 1948 Nov, [facility] [place] [facility] [address] [id number] [place] [address]- 9246 Oct, [facility] [place] [facility] [address] [id number] [place] [address]- 6724 Oct, [facility] [place] [facility] [address] [id number] [place] [address]- 9702 Sep, [facility] [place] [facility] [address] [id number] [place] [address]- 2302 Sep, [facility] [place] [facility] [address] [id number] [place] [address]- 4797 Sep, [facility] [place] [facility] [address] [id number] [place] [address]- 2781 Sep, [facility] [place] [facility] [address] [id number] [place] [address]- 6610 Sep, [facility] [place] [facility] [address] [id number] [place] [address]- 1460 Sep, [facility] [place] [facility] [address] [id number] [place] [address]- 5172 Sep, [facility] [place] [facility] [address] [id number] [place] [address]- 7879 Aug, [facility] [place] [facility] [address] [id number] [place] [address]- 8799 Aug, [facility] [place] [facility] [address] [id number] [place] [address]- 9636 Aug, [facility] [place] [facility] [address] [id number] [place] [address]- 1251 Aug, [facility] [address] [id number] [place] [address]- 8278 Aug, [facility] [address] [id number] [place] [address]- 7423 Aug, [facility] [address] [id number] [place] [address]- 8753 July, [facility] [address] [id number] [place] [address]- 8300 July, [facility] [address] [id number] [place] [address]- 4898 July, [facility] [address] [id number] [place] [address]- 1529 July, [facility] [address] [id number] [place] [address]- 9912 July, [facility] [address] [id number] [place] [address] July, [facility] [address] [id number] [place] [address] Jun, [facility] [address] [id number] [place] [address] Jun, [facility] [address] [id number] [place] [address] Jun, [facility] [address] [id number] [place] [address] Jun, [facility] [place] [facility] [address] [id number] [place] [address] Jun, [facility] [place] [facility] [address] [id number] [place] [address] Jun, [facility] [place] [facility] [address] [id number] [place] [address] Jun, [facility] [address] [id number] [place] [address] May, [facility] [place] [facility] [address] [id number] [place] [address] May, [facility] [place] [facility] [address] [facility] [id number] [place] [address] 26 Apr, 2012 [facility] [place] [facility] [address] [id number] [place] [address] Apr, 2012 [facility] [place] [facility] [address] [id number] [place] [address] Apr, 2012 [facility] [place] [facility] [address] [id number] [place] [address] Apr, 2012 [facility] [address] [facility] [id number] [place] [address] Apr, [facility] [place] [facility] [address] [id number] [place] [address] 08 Apr, 2012 [facility] [place] [facility] [address] [facility] [id number] [place] [address] 07 Apr, 2012 [facility] [place] [facility] [address] [facility] [id number] [place] [address] 07 Apr, 2012 [facility] [place] [facility] [address] [facility] [id number] [place] [address] 06 Apr, 2012 [facility] [place] [facility] [address] [facility] [id number] [place] [address] 254 Apr, 2012 [facility] [place] [facility] [address] [id number] [place] [address] Apr, 2012 [facility] [place] [facility] [address] [facility] [id number] [place] [address] Mar, [facility] [place] [facility] [address] [id number] [place] [address] Mar, [facility] [place] [facility] [address] [id number] [place] [address] Mar, [facility] [address] [id number] [place] [address] Mar, [facility] [address] [id number] [place] [address] Mar, [facility] [address] [id number] [place] [address] Mar, [facility] [address] [id number] [place] [address] Mar, [facility] [address] [id number] [place] [address] Mar, [facility] [address] [id number] [place] [address] Mar, [facility] [address] [id number] [place] [address] Mar, [facility] [address] [id number] [place] [address] Mar, [facility] [address] [id number] [place] [address] Mar, [facility] [address] [id number] [place] [address] Mar, [facility] [address] [id number] [place] [address] Feb, [facility] [address] [id number] [place] [address] Feb, [facility] [address] [id number] [place] [address] Feb, [facility] [address] [id number] [place] [address] Feb, [facility] [address] [id number] [place] [address] Feb, [facility] [place] [facility] [address] [id number] [place] [address] Feb, [facility] [place] [facility] [address] [id number] [place] [address] Feb, [facility] [place] [facility] [address] [id number] [place] [address] Feb, [facility] [place] [facility] [address] [id number] [place] [address]- [address] Feb, [facility] [place] [facility] [address] [id number] [place] [address]- 14[address] Feb, [facility] [place] [facility] [address] [id number] [place] [address] Feb, [facility] [place] [facility] [address] [id number] [place] [address] Feb, [facility] [place] [facility] [address] [id number] [place] [address] 89[address] Feb, [facility] [place] [facility] [address] [id number] [place] [address]- [address] Feb, [facility] [place] [facility] [address] [id number] [place] [address]- [address] Feb, [facility] [place] [facility] [address] [id number] [place] [address]99 Jan, [facility] [place] [facility] [address] [id number] [place] [address] Jan, [facility] [place] [facility] [address] [id number] [place] [address] Jan, [facility] [place] [facility] [address] [id number] [place] [address] Jan, [facility] [place] [facility] [address] [id number] [place] [address] Dec, [facility] [place] [facility] [address] [id number] [place] [address] 29 Dec, 2011 [facility] [place] [facility] [address] [id number] [place] [address]- [address] Dec, 2011 [facility] [place] [facility] [address] [id number] [place] [address]- [address] Dec, 2011 [facility] [place] [facility] [address] [id number] [place] [address] Dec, 2011 [facility] [place] [facility] [address] [id number] [place] [address] Dec, 2011 [facility] [place] [facility] [address] [id number] [place] [address] Dec, 2011 [facility] [place] [facility] [address] [id number] [place] [address] Dec, 2011 [facility] [place] [facility] [address] [id number] [place] [address] Dec, [facility] [address] [id number] [place] [address] 04 Dec, 2011 [facility] [place] [facility] [address] [id number] [place] [address] 03 Dec, 2011 [facility] [place] [facility] [address] [id number] [place] [address] 25 Sep, 2011 [facility] [place] [facility] [address] [id number] [place] [address] 2542 24 Sep, 2011 [facility] [place] [facility] [address] [id number] [place] [address]40 20 Sep, 2011 [facility] [place] [facility] [address] [id number] [place] [address]46 19 Sep, 2011 [facility] [place] [facility] [address] [id number] [place] [address]46 17 Sep, 2011 [facility] [place] [facility] [address] [id number] [place] [address] 30[address] 16 Sep, 2011 [facility] [place] [facility] [address] [id number] [place] [address]300 14 Sep, 2011 [facility] [place] [facility] [address] [id number] [place] [address] 13 Sep, 2011 [facility] [place] [facility] [address] [id number] [place] [address]- 1323 12 Sep, 2011 [facility] [place] [facility] [address] [id number] [place] [address] 9739 07 Sep, 2011 [facility] [place] [facility] [address] [id number] [place] [address] 3821 06 Sep, 2011 [facility] [place] [facility] [address] [id number] [place] [address] 5[address] 06 Sep, 2011 [facility] [place] [facility] [address] [id number] [place] [address]- 2568 05 Nov, 2011 [facility] [place] [facility] [address] [id number] [place] [address]- 7367 29 Oct, 2011 [facility] [place] [facility] [address] [id number] [place] [address] 3240 29 Oct, 2011 [facility] [place] [facility] [address] [id number] [place] [address] 9152 28 Oct, 2011 [facility] [place] [facility] [address] [id number] [place] [address]- 1585 28 Oct, 2011 [facility] [place] [facility] [address] [id number] [place] [address]- 2560 23 Oct, 2011 [facility] [place] [facility] [address] [id number] [place] [address] 2395 Oct, [facility] [place] [facility] [address] [id number] [place] [address] 4[address] Oct, [facility] [place] [facility] [address] [id number] [place] [address] 8504 16 Oct, 2011 [facility] [place] [facility] [address] [id number] [place] [address] 0174 Oct, [facility] [address] [id number] [place] [address] 4242 Oct, [facility] [place] [facility] [address] [id number] [place] [address] 2685 Oct, [facility] [place] [facility] [address] [id number] [place] [address] 4[address] Sep, [facility] [place] [facility] [address] [id number] [place] [address] 8651 Sep, [facility] [place] [facility] [address] [id number] [place] [address] 1382 Sep, [facility] [place] [facility] [address] [id number] [place] [address] 2369 Sep, [facility] [address] [id number] [place] [address] 52[address] Sep, [facility] [place] [facility] [address] [id number] [place] [address] 1748 Sep, [facility] [place] [facility] [address] [id number] [place] [address] 0481 Aug, [facility] [place] [facility] [address] [id number] [place] [address] July, [facility] [place] [facility] [address] [id number] [place] [address] July, [facility] [place] [facility] [address] [id number] [place] [address] 3161 Jun, [facility] [place] [facility] [address] [id number] [place] [address] 4[address] Jun, [facility] [place] [facility] [address] [id number] [place] [address] 7449 Jun, [facility] [place] [facility] [address] [id number] [place] [address] 3794 Jun, [facility] [place] [facility] [address] [id number] [place] [address] 6059 10 Jun, 2011 [facility] [place] [facility] [address] [id number] [place] [address] 6597 10 Jun, 2011 [facility] [place] [facility] [address] [id number] [place] [address]- 6526 09 Jun, 2011 [facility] [place] [facility] [address] [id number] [place] [address]- 8675 08 Jun, 2011 [facility] [place] [facility] [address] [id number] [place] [address] 3016 Jun, [facility] [place] [facility] [address] [id number] [place] [address] 0[address] Jun, [facility] [place] [facility] [address] [id number] [place] [address] 2987 Jun, [facility] [place] [facility] [address] [id number] [place] [address] 7751 May, [facility] [place] [facility] [address] [id number] [place] [address]- 0740 16 May, 2011 [facility] [place] [facility] [address] [id number] [place] [address]- 4611 14 May, 2011 [facility] [place] [facility] [address] [id number] [place] [address]- 8483 06 May, 2011 [facility] [place] [facility] [address] [id number] [place] [address]- 4688 Apr, [facility] [place] [facility] [address] [id number] [place] [address]- 6004 28 Apr, 2011 [facility] [place] [facility] [address] [id number] [place] [address] 7207 27 Apr, 2011 [facility] [place] [facility] [address] [id number] [place] [address]- 7891 23 Apr, 2011 [facility] [place] [facility] [address] [id number] [place] [address] 0623 Apr, [facility] [address] [id number] [place] [address] 7938 Apr, [facility] [address] [id number] [place] [address] 0913 Apr, [facility] [address] [id number] [place] [address]- 3092 Apr, [facility] [address] [id number] [place] [address] 4129 Mar, [facility] [address] [id number] [place] [address] 3425 Mar, [facility] [address] [id number] [place] [address] 6749 Mar, [facility] [address] [id number] [place] [address]- 7869 Mar, [facility] [address] [id number] [place] [address] 1251 Mar, [facility] [address] [id number] [place] [address] 3264 Mar, [facility] [address] [id number] [place] [address]- 5973 Mar, [facility] [address] [id number] [place] [address]- 2433 Mar, [facility] [place] [facility] [address] [id number] [place] [address] 7034 Mar, [facility] [place] [facility] [address] [id number] [place] [address]- 2009 Mar, [facility] [place] [facility] [address] [id number] [place] [address]- 1779 Mar, [facility] [address] [id number] [place] [address]- 6536 Mar, [facility] [place] [facility] [address] [id number] [place] [address]- 4991 Mar, [facility] [place] [facility] [address] [id number] [place] [address]- 2484 Mar, [facility] [place] [facility] [address] [id number] [place] [address]- 1558 Mar, [facility] [place] [facility] [address] [id number] [place] [address]- 6181 Mar, [facility] [place] [facility] [address] [id number] [place] [address]- 8754 Feb, [facility] [place] [facility] [address] [id number] [place] [address]- 7198 Feb, [facility] [place] [facility] [address] [id number] [place] [address]- 7895 Feb, [facility] [place] [facility] [address] [id number] [place] [address]- 1290 Jan, [facility] [place] [facility] [address] [id number] [place] [address]- 3962 Jan, [facility] [place] [facility] [address] [id number] [place] [address]- 4432 Jan, [facility] [place] [facility] [address] [id number] [place] [address]- 1607 Dec, [facility] [place] [facility] [address] [id number] [place] [address]- 1573 Dec, [facility] [place] [facility] [address] [id number] [place] [address]- 3143 Nov, [facility] [place] [facility] [address] [id number] [place] [address]- 6251 Oct, [facility] [place] [facility] [address] [id number] [place] [address]- 8763 Oct, [facility] [place] [facility] [address] [id number] [place] [address]- 1871 Oct, [facility] [address] [facility] [id number] [place] [address] 2546 Sep, [facility] [address] [facility] [id number] [address]46 Apr, [facility] [address] [facility] [id number] [place] [address]- 2546 Feb, [facility] [address] [facility] [id number], [place] [address]- 2546 Jan, IMMUNIZATIONS No Known Immunizations SOCIAL HISTORY Never Assessed REASON FOR VISIT EMR-[facility] PLAN OF CARE VITAL SIGNS MEDICATIONS No [...] [facility] 12/30/2016 Hospitalization History MARYANNE and dagoberto [...]
--- OUTSIDE RECORDS SUMMARY | 2018-06-30 11:36 | XMS REPORT ---
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 Active Problem TMJ (sprain of temporomandibular joint) S03.4XXA Active 59635943 Problem Migraine G43.909 Active 48012824 Problem Memory loss R41.3 Active 70260568 Problem Chronic constipation K59.09 Active 168602948 Problem Bipolar disorder with depression F31.30 Active 85566715 Problem Bipolar disorder, unspecified F31.9 Active 68643410 Problem Migraine without aura and without status migrainosus, not intractable G43.009 Active 549809171 Problem Chronic bronchitis, unspecified chronic bronchitis type J42 Active 17393181 Problem Methamphetamine use disorder, moderate, 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 Active 40982994 Problem Acute on chronic systolic congestive heart failure I50.23 Active 667751518 Problem Other emphysema J43.8 Active 08319857 Problem COPD exacerbation J44.1 Active 378268815 Problem Generalized anxiety disorder F41.1 Active 16763838 Problem Examination of eyes and vision V72.0 Active 223004658 Problem Diabetes E11.9 Active 383449446 Problem Intractable cyclical vomiting with nausea G43.A1 Active 97046149 Problem Anxiety F41.9 Active 69382977 Problem Chronic obstructive pulmonary disease, unspecified COPD type J44.9 Active 92263270 ALLERGIES No Information ENCOUNTERS Encounter Location Date Diagnosis [facility] [address], [place] [address] May, Chronic obstructive pulmonary disease with acute exacerbation J44.1 and Tobacco abuse Z72.0 [facility] [address], [place] [address] May, Chronic obstructive pulmonary disease with acute exacerbation J44.1 [facility] [address] [address] Apr, [facility] [id number] [place] [address] 44859- 3625 Apr, [facility] [id number] [place] [address] 30308- 3724 Feb, Diabetes E11.9 ; Chronic obstructive pulmonary disease with (acute) exacerbation J44.1 and Encounter for immunization Z23 [facility] [id number] [place] [address] 45130- 3558 Jan, COPD exacerbation J44.1 [facility] [id number] [place] [address] 76682- 6707 Jan, Dental abscess K04.7 [facility] [id number] [place] [address] 85233- 4033 Jan, COPD exacerbation J44.1 and Acute on chronic systolic congestive heart failure I50.23 [facility] [id number] [place] [address] 29615- 0994 Dec, [facility] [id number] [place] [address] 06427- 4089 Dec, [facility] [id number] [place] [address] 99608- 0477 Nov, [facility] [id number] [place] [address] 14685- 3390 Nov, COPD with exacerbation J44.1 and Urinary tract infection without hematuria, site unspecified N39.0 [facility] [id number] [place] [address] 57500- 4258 Nov, Chronic obstructive pulmonary disease, unspecified COPD type J44.9 [facility] [id number] [place] [address] 09790- 5332 Oct, [facility] [id number] [place] [address] 78446- 6461 Oct, [facility] [address], [place] [address] 3947 Oct, [facility] [address], [place] [address] 0[address] Oct, [facility] [address], [place] [address] 0598 Oct, Thrush B37.0 [facility] [id number] [place] [address] 33490- 5127 Sep, COPD with exacerbation J44.1 and Anxiety F41.9 [facility] [address], [place] [address] Sep, [facility] [address], [place] [address] 3346 Sep, [facility] [address] [address] 6278 Sep, [facility] [address] [address] 4951 Sep, Acute congestive heart failure, unspecified heart failure type I50.9 and Anxiety disorder, unspecified F41.9 [facility] [address] [address] 6596 Sep, Heart failure, unspecified HF chronicity, unspecified heart failure type I50.9 [facility] [address], [place] [address] 1718 Sep, [facility] [address], [place] [address] 0371 Aug, Chronic obstructive pulmonary disease with acute exacerbation J44.1 [facility] [address], [place] [address] 9[address] Aug, [facility] [address], [place] [address] 4[address] Aug, [facility] [address], [place] [address] 9730 July, [facility] [id number] [place] [address] 45416- 5711 July, [facility] [id number] [place] [address] 08691- 4436 July, Diabetes E11.9 and Chronic obstructive pulmonary disease with acute exacerbation J44.1 [facility] [id number] [place] [address] 47244- 0770 Jun, Chronic obstructive pulmonary disease with acute exacerbation J44.1 ; Diabetes E11.9 and Tobacco abuse Z72.0 [facility] [id number] [place] [address] 35067- 2728 Jun, [facility] [id number] [place] [address] 95863- 6656 Jun, [facility] [id number] [place] [address] 92548- 8312 May, [facility] [id number] [place] [address] 73310- 3819 May, [facility] [address] [address] May, [facility] [address], [place] [address] 386[address] 16 May, 2017 [facility] [id number] [place] [address] 25419- 7877 15 May, 2017 [facility] [id number] [place] [address] 65017- 2780 14 May, 2017 Diarrhea, unspecified type R19.7 and Intractable cyclical vomiting with nausea G43.A1 [facility] [address], [place] [address] 7415 May, [facility] [id number] [place] [address] 80912- 9854 May, [facility] [id number] [place] [address] 08647- 3965 Apr, COPD exacerbation J44.1 ; Esophageal candidiasis B37.81 ; Other acute gastritis with hemorrhage K29.01 and Acute posthemorrhagic anemia D62 [facility] [id number] [place] [address] 63552- 0023 Apr, Viral illness B34.9 and COPD exacerbation J44.1 [facility] [id number] [place] [address] 88847 -0951 Apr, Shortness of breath R06.02 and Pneumonia of both lower lobes due to infectious organism J18.9 [facility] [id number] [place] [address] 77018 -7933 Mar, COPD with acute exacerbation J44.1 [place] [address] 46434- 5151 Mar, Chronic obstructive pulmonary disease with acute exacerbation J44.1 and Diabetes E11.9 [facility] [id number] [place] [address] 59284- 0279 Mar, [facility] [id number] [place] [address] 69548- 8749 Mar, [facility] [id number] [place] [address] 50078 -7573 Mar, COPD exacerbation J44.1 [facility] [id number] [place] [address] 53406- 3363 Mar, [facility] [id number] [place] [address] 70989- 1297 Mar, Migraine G43.909 ; Hypokalemia E87.6 and Type 2 diabetes mellitus without complications E11.9 [facility] [id number] [place] [address] 21048- 4832 Feb, [facility] [id number] [place] [address] 46203- 3640 Feb, [facility] [id number] [place] [address] 77541- 1902 Feb, Methamphetamine use disorder, moderate, 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 ; Major depressive disorder, recurrent, moderate F33.1 ; Anxiety disorder, unspecified F41.9 and Tobacco abuse Z72.0 [facility] [id number] [place] [address] 63887- 9006 Jan, Major depressive disorder, recurrent, moderate F33.1 [facility] [id number] [place] [address] 73913- 1057 Jan, [facility] [id number] [place] [address] 35916- 7200 Jan, [facility] [id number] [place] [address] 57142- 7119 Jan, Major depressive disorder, recurrent, moderate F33.1 [facility] [id number] [place] [address] 44666- 8531 Jan, Major depressive disorder, recurrent, moderate F33.1 ; Anxiety disorder, unspecified F41.9 ; Methamphetamine use disorder, moderate, 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 and Tobacco abuse Z72.0 [facility] [id number] [place] [address] 91215- 4025 Jan, [facility] [id number] [place] [address] 55395- 8518 Jan, Chronic obstructive pulmonary disease with acute exacerbation J44.1 and Diabetes E11.9 [facility] [id number] [place] [address] 56348- 2388 Jan, [facility] [id number] [place] [address] 88362- 8224 Jan, [facility] [id number] [place] [address] 04976- 7782 24 Oct, 2017 Acute respiratory failure with hypoxia J96.01 ; Chronic bronchitis, unspecified chronic bronchitis type J42 and Tobacco use Z72.0 [facility] [id number] [place] [address] 39714- 8632 Dec, [facility] [id number] [place] [address] [id number] Nov, Dental caries K02.9 and Dental examination Z01.20 [facility] [id number] [place] [address] 48494- 4206 Nov, Major depressive disorder, recurrent, moderate F33.1 ; Anxiety disorder, unspecified F41.9 and 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 [facility] [id number] [place] [address] [id number] Oct, Dental examination Z01.20 [facility] [id number] [place] [address] 88313- 0038 Oct, [facility] [id number] [place] [address] 95701- 9977 Oct, Diabetes E11.9 and Thrush B37.0 [facility] [id number] [place] [address] 79417- 2610 Oct, [facility] [id number] [place] [address] 82768- 4254 Oct, [facility] [id number] [place] [address] 94446- 4114 Oct, [facility] [id number] [place] [address] 51965- 0104 Sep, Major depressive disorder, recurrent, moderate F33.1 ; Anxiety disorder, unspecified F41.9 and Bipolar disorder, unspecified F31.9 [facility] [address] [place] [address] 15477- 8413 Sep, Acute exacerbation of chronic obstructive pulmonary disease (COPD) J44.1 and Migraine G43.909 [facility] [id number] [address]- 4140 Sep, [facility] [id number] [address] Sep, [facility] [address], [place] [address]- 6103 Sep, Acute exacerbation of chronic obstructive pulmonary disease (COPD) J44.1 [facility] [address] [address] Sep, Acute exacerbation of chronic obstructive pulmonary disease (COPD) J44.1 [facility] [address], [place] [address]- 4871 Aug, [facility] [address], [place] [address]- 5737 Aug, Major depressive disorder, recurrent, moderate F33.1 ; Anxiety disorder, unspecified F41.9 and 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 [facility] [address], [place] [address]- 3659 Aug, Wheezing R06.2 ; Non morbid obesity due to excess calories E66.09 ; Migraine without aura and without status migrainosus, not intractable G43.009 and Tobacco abuse Z72.0 [facility] [id number] [address] 14 Aug, 2016 Encounter for dental examination Z01.20 [facility] [address], [place] [address]- 9907 02 Aug, 2016 Major depressive disorder, recurrent, moderate F33.1 ; Anxiety disorder, unspecified F41.9 and 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 [facility] [address], [place] [address]- 4019 July, [facility] [address], [place] [address]- 6671 July, [facility] [id number] [address]- 2799 July, [facility] [id number] [place] [address] 98961- 6524 July, Diabetes E11.9 [facility] [id number] [place] [address] 68997- 3837 Jun, Major depressive disorder, recurrent, moderate F33.1 [facility] [id number] [place] [address] 11651- 5227 Jun, Major depressive disorder, recurrent, moderate F33.1 ; Other 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 ; Generalized anxiety disorder F41.1 and Bipolar disorder, unspecified F31.9 [facility] [id number] [place] [address] 36438- 0838 Jun, Diabetes E11.9 ; Migraine G43.909 ; Thrush B37.0 and Wheezing R06.2 [facility] [address] [id number] Jun, Dental examination Z01.20 [facility] [id number] [place] [address] 94628- 5800 Jun, [facility] [id number] [place] [address] 43890- 5921 Jun, Major depressive disorder, recurrent, moderate F33.1 ; Anxiety disorder, unspecified F41.9 and 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 [facility] [address] [place] [address] 10397- 1710 Jun, [facility] [id number] [place] [address] 35383- 3441 Jun, Wheezing R06.2 [facility] [address] [id number] Jun, Dental caries K02.9 [facility] [id number] [place] [address] 32113- 4134 Jun, Major depressive disorder, recurrent, moderate F33.1 ; Anxiety disorder, unspecified F41.9 and 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 [facility] [id number] [place] [address] 74393- 4261 Jun, RLQ abdominal pain R10.31 ; Diabetes E11.9 ; Obesity, unspecified obesity severity, unspecified obesity type E66.9 ; Wheezing R06.2 and Abnormal urinalysis R82.90 [facility] [facility] [address] 72296- 5737 May, [facility] [address] 28901- 9375 May, Well woman exam Z01.419 ; Breast cancer screening Z12.39 ; Cervical cancer screening Z12.4 ; Urinary frequency R35.0 ; Edema, unspecified type R60.9 and Chronic constipation K59.09 [facility] [address] 20828- 9451 May, Major depressive disorder, recurrent, moderate F33.1 ; Anxiety disorder, unspecified F41.9 and 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 [facility] [id number] [place] [address] [id number] May, Dental examination Z01.20 [facility] [id number] [place] [address] 14771- 2820 May, [facility] [address] 72164- 9047 May, [facility] [address] 54080- 4603 May, Chronic constipation K59.09 [facility] [id number] [place] [address] 13126- 9767 Apr, [facility] [id number] [place] [address] 47691- 3182 Apr, Major depressive disorder, recurrent, moderate F33.1 ; Anxiety disorder, unspecified F41.9 and 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 [facility] [id number] [place] [address] 73332- 8519 Apr, [facility] [id number] [place] [address] 55927- 8746 Mar, Major depressive disorder, recurrent, moderate F33.1 [facility] [id number] [place] [address] 64758- 0315 Mar, Major depressive disorder, recurrent, moderate F33.1 ; Generalized anxiety disorder F41.1 and Bipolar I disorder, most recent episode depressed with anxious distress F31.30 [facility] [id number] [place] [address] 73553- 2268 Mar, Diabetes E11.9 ; Non morbid obesity due to excess calories E66.09 ; Breast cancer screening Z12.39 and Encounter for immunization Z23 [facility] [id number] [place] [address] 45532- 5792 Mar, Major depressive disorder, recurrent, moderate F33.1 ; Anxiety disorder, unspecified F41.9 and 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 [facility] [address] [place] [address] 88600- 2311 Mar, [facility] [id number] [place] [address] 58322- 6303 Feb, Major depressive disorder, recurrent, moderate F33.1 ; Anxiety disorder, unspecified F41.9 and 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 [facility] [id number] [place] [address] 82161- 7198 Feb, [facility] [id number] [place] [address] 70785- 2190 Feb, [facility] [id number] [place] [address] 04950- 5859 Jan, Major depressive disorder, recurrent, moderate F33.1 ; Generalized anxiety disorder F41.1 and Bipolar disorder, current episode depressed, severe, without psychotic features F31.4 [facility] [address] [place] [address] 13388- 0079 Jan, Major depressive disorder, recurrent, moderate F33.1 ; Anxiety disorder, unspecified F41.9 and 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 [facility] [id number] [place] [address] 91260- 1722 Jan, Bronchitis J40 [facility] [address] 06304- 8901 Jan, [facility] [id number] [place] [address] 64254- 0603 Jan, [facility] [id number] [place] [address] 82311- 7397 Jan, Elbow injury, right, initial encounter S59.901A ; Multiple contusions T14.8 and Cervical strain, acute, initial encounter S16.1XXA [facility] [id number] [place] [address] 65273- 3991 Dec, Major depressive disorder, recurrent, moderate F33.1 ; Generalized anxiety disorder F41.1 and Bipolar disorder with depression F31.30 [facility] [id number] [place] [address] 39997- 3177 Dec, [facility] [id number] [place] [address] 71706- 2855 Dec, [facility] [id number] [place] [address] 41572- 4021 Dec, [facility] [id number] [place] [address] 82932- 0093 Dec, [facility] [id number] [place] [address] 87869- 7717 Dec, Yeast infection B37.9 [place] [id number] [address]- 8562 Dec, Pneumonia of both lungs due to methicillin resistant Staphylococcus aureus (MRSA), unspecified part of lung J15.212 and Benzodiazepine overdose, accidental or unintentional, subsequent encounter T42.4X1D [facility] [address], [place] [address]- 8736 Dec, [facility] [id number] [place] [address] 74020- 3533 Dec, [facility] [id number] [place] [address] 62859- 9426 Dec, Knee pain, left M25.562 and Edema, unspecified type R60.9 [facility] [address] [place] [address] 28351- 8023 Dec, [facility] [id number] [place] [address] 43928- 3238 Dec, Anxiety disorder, unspecified F41.9 and Bipolar disorder, unspecified F31.9 [facility] [address] [place] [address] 72238- 2075 Nov, Major depressive disorder, recurrent, moderate F33.1 ; Anxiety disorder, unspecified F41.9 and 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 [facility] [address], [place] [address]- 7719 Nov, [facility] [address] [place] [address] 86848- 2247 Nov, Migraine without aura and without status migrainosus, not intractable G43.009 [facility] [address] [place] [address] 79795- 0785 Nov, Migraine G43.909 [facility] [address] [place] [address] 84925- 7835 Nov, [facility] [address] [place] [address]- 1742 Nov, Major depressive disorder, recurrent, moderate F33.1 ; Anxiety disorder, unspecified F41.9 and 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 [facility] [id number] [place] [address] 67575- 6475 Oct, Chronic constipation K59.09 and Obesity, unspecified obesity severity, unspecified obesity type E66.9 [facility] [id number] [place] [address] 27455- 4877 Oct, Obesity, unspecified obesity severity, unspecified obesity type E66.9 ; Chronic constipation K59.09 and Anxiety disorder, unspecified F41.9 [facility] [id number] [place] [address] 62935- 9255 Oct, [facility] [id number] [place] [address] 01762- 5311 Sep, Diabetes E11.9 ; Edema, unspecified type R60.9 ; Varicose vein of leg I83.90 and Obesity, unspecified obesity severity, unspecified obesity type E66.9 [facility] [id number] [place] [address] 43246- 9953 Sep, Edema, unspecified type R60.9 ; Diabetes E11.9 and Knee pain , left M25.562 [facility] [id number] [place] [address] 26639- 9891 Sep, [facility] [id number] [place] [address] 37180- 2985 Sep, [facility] [id number] [place] [address] 91403- 5571 Sep, Major depressive disorder, recurrent, moderate F33.1 ; Generalized anxiety disorder F41.1 and Bipolar disorder, unspecified F31.9 [facility] [place] [id number] [place] [place] [address] 60036- 9912 Aug, Chondromalacia of left knee M94.262 [facility] [id number] [place] [address] 13579- 8443 24 Aug, 2015 Major depressive disorder, recurrent, moderate F33.1 ; Anxiety disorder, unspecified F41.9 and 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 [facility] [id number] [place] [address] 92431- 4009 Aug, [facility] [id number] [place] [address] 44679- 6796 Aug, Osteoarthritis of left knee M17.9 [facility] [id number] [place] [address] 80628- 0380 Aug, [facility] [id number] [place] [address] 50456- 3734 July, Major depressive disorder, recurrent, moderate F33.1 ; Anxiety disorder, unspecified F41.9 and 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 [facility] [id number] [place] [address] 34767- 3319 July, [facility] [id number] [place] [address] 98047- 1999 July, Chronic constipation K59.09 [facility] [id number] [place] [address] 96235- 9033 Jun, [facility] [id number] [place] [address] 84228- 1630 15 Jun, 2015 [facility] [id number] [place] [address] 39570- 0456 14 Jun, 2015 Osteoarthritis of left knee M17.9 [facility] [id number] [place] [address] 86859- 0441 Jun, [facility] [id number] [place] [address] 42742- 7228 Jun, Generalized anxiety disorder F41.1 ; Bipolar disorder, unspecified F31.9 and Major depressive disorder, recurrent, moderate F33.1 [place] [address] 55069- 3074 Jun, Migraine G43.909 [place] [address] 30199- 1278 Jun, Left knee pain M25.562 ; Chronic constipation K59.09 ; Dry mouth R68.2 ; Yeast vaginitis B37.3 and Memory loss R41.3 [place] [address] 91070- 7852 Jun, [place] [address] 87654- 5227 May, [place] [address] 95535- 6399 May, [place] [address] 20416- 6637 May, [place] [address] 03918- 2313 May, [place] [address] 28784- 7413 May, Acute bronchitis with COPD J44.0 ; Knee pain, left M25.562 and Encounter for tobacco use cessation counseling Z71.6 [place] [address] 25809- 5813 May, [place] [address] 13650- 4326 Apr, Diabetes E11.9 ; TMJ (sprain of temporomandibular joint) S03.4XXA ; Tobacco abuse Z72.0 ; Migraine G43.909 and Anxiety F41.9 [place] [id number] [place] [address] 06513- 1301 Apr, Generalized anxiety disorder F41.1 and Bipolar disorder, unspecified F31.9 [place] [address] [address] 9751 24 Apr, 2015 Major depressive disorder, recurrent, moderate F33.1 ; Anxiety disorder, unspecified F41.9 and 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 [facility] [address] [address]- 8056 Apr, [facility] [id number] [place] [address] 37081- 2222 Mar, [facility] [id number] [place] [address] 84136- 2996 Feb, [facility] [id number] [place] [address] 38846- 9544 Feb, Major depressive disorder, recurrent, moderate F33.1 ; Anxiety disorder, unspecified F41.9 and 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 [facility] [id number] [place] [address] 03651- 3497 Feb, [facility] [id number] [place] [address] 59477- 2609 Feb, Generalized anxiety disorder F41.1 and Bipolar disorder, unspecified F31.9 [facility] [address] [address]- 9695 30 Jan, 2015 [facility] [address] [address]- 9546 18 Jan, 2015 [facility] [address] [address]- 2421 Jan, Bipolar disorder, unspecified F31.9 and Generalized anxiety disorder F41.1 [facility] [address] [address]- 5373 14 Dec, 2014 [facility] [address] [address]- 1170 Dec, Bipolar disorder, unspecified F31.9 and Generalized anxiety disorder F41.1 [facility] [id number] [place] [address] 80391- 4275 Dec, Generalized anxiety disorder F41.1 and Major depressive disorder, recurrent, moderate F33.1 [facility] [id number] [place] [address] 31058- 5848 Oct, Headache 784.0 ; Cough 786.2 ; Vomiting and diarrhea 787.03 and Dysuria 788.1 [facility] [id number] [place] [address] 51031- 0260 Aug, [facility] [address] 83668- 8269 Aug, Headache 784.0 and Shortness of breath 786.05 [facility] [id number] [place] [address] 08157- 5336 Aug, [facility] [id number] [place] [address] 47542- 1658 Aug, Migraine 346.90 [facility] [id number] [place] [address] 28897- 3507 Jun, [facility] [id number] [place] [address] 74839- 4932 Jun, [facility] [id number] [place] [address] 06964- 2146 May, [facility] [id number] [place] [address] 74203- 5927 May, [facility] [id number] [place] [address] 14326- 8477 May, [facility] [id number] [place] [address] 16194- 3868 May, [facility] [id number] [place] [address] 47642- 0514 May, [facility] [id number] [place] [address] 26753- 9459 May, [facility] [place] [facility] [address] [id number] [place] [address]- 0177 Apr, 2014 [facility] [place] [facility] [address] [id number] [place] 8376 Apr, 2014 [facility] [place] [facility] [address] [id number] [place] [address]- 0916 Apr, 2014 [facility] [place] [facility] [address] [id number] [place] [address]- 3943 Apr, [facility] [place] [facility] [address] [id number] [place] [address]- 9256 Apr, [facility] [place] [facility] [address] [id number] [place] [address]- 6736 Mar, [facility] [place] [facility] [address] [id number] [place] [address]- 3044 Mar, [facility] [place] [facility] [address] [id number] [place] [address]- 4595 Mar, [facility] [place] [facility] [address] [id number] [place] [address]- 0986 Mar, [facility] [place] [facility] [address] [facility] [id number] [place] [address]- 0907 Feb, [facility] [place] [facility] [address] [id number] [place] [address]- 2908 19 Feb, 2014 [facility] [place] [facility] [address] [id number] [place] [address]- 6701 18 Feb, 2014 [facility] [place] [facility] [address] [id number] [place] [address]- 1651 18 Feb, 2014 [facility] [place] [facility] [address] [id number] [place] [address]- 2618 16 Feb, 2014 [facility] [place] [facility] [address] [id number] [place] 2476 Feb, [facility] [place] [facility] [address] [id number] [place] [address]- 0052 Feb, [facility] [place] [facility] [address] [id number] [place] [address]- 3485 Feb, [facility] [place] [facility] [address] [id number] [place] 4512 Feb, [facility] [place] [facility] [address] [id number] [place] [address]- 7669 Feb, [facility] [place] [facility] [address] [id number] [place] [address]- 8870 Feb, [facility] [place] [facility] [address] [id number] [place] [address]- 8525 Feb, [facility] [place] [facility] [address] [id number] [place] [address]- 1776 Jan, [facility] [place] [facility] [address] [id number] [place] [address]- 9237 Jan, [facility] [place] [facility] [address] [id number] [place] [address]- 1822 Dec, [facility] [place] [facility] [address] [id number] [place] [address]- 0111 Dec, [facility] [place] [facility] [address] [id number] [place] [address]- 1828 Dec, [facility] [place] [facility] [address] [id number] [place] [address]- 5656 Dec, [facility] [place] [facility] [address] [id number] [place] [address]- 8327 Dec, [facility] [place] [facility] [address] [id number] [place] [address]- 0165 Dec, [facility] [place] [facility] [address] [id number] [place] [address]- 3698 Sep, [facility] [place] [facility] [address] [id number] [place] [address]- 8350 Sep, [facility] [place] [facility] [address] [id number] [place] [address]- 2740 Sep, [facility] [place] [facility] [address] [id number] [place] [address]- 5745 Sep, [facility] [place] [facility] [address] [id number] [place] [address]- 1716 Sep, [facility] [place] [facility] [address] [id number] [place] [address]- 6192 Sep, [facility] [place] [facility] [address] [id number] [place] [address]- 9863 Sep, [facility] [place] [facility] [address] [id number] [place] [address]- 4077 Sep, [facility] [place] [facility] [address] [id number] [place] [address]- 9406 Sep, [facility] [place] [facility] [address] [id number] [place] [address]- 3873 Sep, [facility] [place] [facility] [address] [id number] [place] [address]- 8530 Aug, [facility] [place] [facility] [address] [id number] [place] [address]- 1245 Aug, [facility] [place] [facility] [address] [id number] [place] [address]- 8534 Aug, [facility] [place] [facility] [address] [id number] [place] [address]- 5469 Aug, [facility] [place] [facility] [address] [id number] [place] [address]- 7689 Aug, [facility] [place] [facility] [address] [id number] [place] [address]- 1610 Aug, [facility] [place] [facility] [address] [id number] [place] [address]- 4840 Aug, [facility] [place] [facility] [address] [id number] [place] [address]- 6189 Aug, [facility] [address] [id number] [place] [address]- 8515 Aug, [facility] [place] [facility] [address] [id number] [place] [address]- 2774 Aug, [facility] [address] [id number] [place] [address]- 6585 Aug, [facility] [place] [facility] [address] [id number] [place] [address]- 8425 Aug, [facility] [place] [facility] [address] [id number] [place] [address]- 4662 Aug, [facility] [place] [facility] [address] [id number] [place] [address]- 3336 July, [facility] [place] [facility] [address] [id number] [place] [address]- 6623 July, [facility] [address] [id number] [place] [address]- 7292 July, [facility] [place] [facility] [address] [id number] [place] [address]- 5154 July, [facility] [address] [id number] [place] [address]- 7545 July, [facility] [place] [facility] [address] [id number] [place] [address]- 7548 July, [facility] [place] [facility] [address] [id number] [place] [address]- 6081 July, [facility] [place] [facility] [address] [id number] [place] [address]- 4864 Jun, [facility] [place] [facility] [address] [id number] [place] [address]- 6170 Jun, [facility] [place] [facility] [address] [id number] [place] [address]- 8782 Jun, [facility] [place] [facility] [address] [id number] [place] [address]- 4265 16 Jun, 2013 [facility] [place] [facility] [address] [id number] [place] [address]- 6789 16 Jun, 2013 [facility] [place] [facility] [address] [id number] [place] [address]- 0485 Jun, [facility] [place] [facility] [address] [id number] [place] [address]- 9937 Jun, [facility] [place] [facility] [address] [id number] [place] [address]- 6567 17 May, 2013 [facility] [place] [facility] [address] [id number] [place] [address]- 7593 17 May, 2013 [facility] [place] [facility] [address] [id number] [place] [address]- 3613 14 May, 2013 [facility] [place] [facility] [address] [id number] [place] [address]- 9091 14 May, 2013 [facility] [place] [facility] [address] [id number] [place] [address]- 8238 13 May, 2013 [facility] [place] [facility] [address] [id number] [place] [address]- 8958 13 May, 2013 [facility] [place] [facility] [address] [id number] [place] [address]- 9082 10 May, 2013 [facility] [place] [facility] [address] [id number] [place] [address]- 3316 10 May, 2013 [facility] [place] [facility] [address] [id number] [place] [address]- 0941 07 May, 2013 [facility] [place] [facility] [address] [id number] [place] [address]- 1186 Apr, [facility] [place] [facility] [address] [id number] [place] 9751 Apr, [facility] [place] [facility] [address] [id number] [place] [address]- 4216 18 Apr, 2013 [facility] [place] [facility] [address] [id number] [place] [address]- 8756 Apr, [facility] [place] [facility] [address] [id number] [place] [address]- 3926 Apr, [facility] [place] [facility] [address] [id number] [place] [address]- 1666 Apr, [facility] [place] [facility] [address] [id number] [place] [address]- 9195 Apr, [facility] [place] [facility] [address] [id number] [place] [address]- 2567 Apr, [facility] [place] [facility] [address] [id number] [place] [address]- 8426 Apr, [facility] [place] [facility] [address] [id number] [place] [address]- 6809 Apr, [facility] [place] [facility] [address] [id number] [place] [address]- 1907 Mar, [facility] [place] [facility] [address] [id number] [place] [address]- 2258 Mar, [facility] [place] [facility] [address] [facility] [id number] [place] [address]- 2488 Mar, [facility] [place] [facility] [address] [id number] [place] [address]- 8572 Mar, [facility] [place] [facility] [address] [id number] [place] [address]- 3055 Mar, [facility] [place] [facility] [address] [id number] [place] [address]- 5708 Mar, [facility] [place] [facility] [address] [id number] [place] 2196 Mar, [facility] [place] [facility] [address] [id number] [place] [address]- 2521 Mar, [facility] [place] [facility] [address] [id number] [place] [address]- 7028 Feb, [facility] [place] [facility] [address] [id number] [place] [address]- 0686 Feb, [facility] [place] [facility] [address] [id number] [place] [address]- 7828 Jan, [facility] [place] [facility] [address] [id number] [place] [address]- 9051 Jan, [facility] [place] [facility] [address] [id number] [place] [address]- 2381 Jan, [facility] [place] [facility] [address] [id number] [place] [address]- 1619 Jan, [facility] [place] [facility] [address] [id number] [place] [address]- 9175 Jan, [facility] [place] [facility] [address] [id number] [address]- 1022 Jan, [facility] [place] [facility] [address] [id number] [place] [address]- 7501 Jan, [facility] [place] [facility] [address] [id number], [place] [address]- 9416 05 Jan, 2013 [facility] [place] [facility] [address] [id number], [place] [address]- 2140 Dec, [facility] [place] [facility] [address] [id number], [place] [address]- 7014 10 Dec, 2012 [facility] [place] [facility] [address] [id number] [place] [address]- 1351 10 Dec, 2012 [facility] [place] [facility] [address] [id number] [address]- 4908 20 Nov, 2012 [facility] [place] [facility] [address] [id number] [place] [address]- 8102 13 Nov, 2012 [facility] [place] [facility] [address] [id number] [place] [address]- 6413 12 Nov, 2012 [facility] [address] [id number] [place] [address]- 0655 Nov, [facility] [place] [facility] [address] [id number] [place] [address]- 3870 Nov, [facility] [place] [facility] [address] [id number] [place] [address]- 5594 Nov, [facility] [place] [facility] [address] [id number] [place] [address]- 5082 Oct, [facility] [place] [facility] [address] [id number] [place] [address]- 7159 Oct, [facility] [place] [facility] [address] [id number] [place] [address]- 1046 Sep, [facility] [place] [facility] [address] [id number] [place] [address]- 2711 Sep, [facility] [place] [facility] [address] [id number] [place] [address]- 9325 Sep, [facility] [place] [facility] [address] [id number] [place] [address]- 7351 Sep, [facility] [place] [facility] [address] [id number] [place] [address]- 7522 Sep, [facility] [place] [facility] [address] [id number] [place] [address]- 9469 Sep, [facility] [place] [facility] [address] [id number] [place] [address]- 5298 Sep, [facility] [place] [facility] [address] [id number] [place] [address]- 0984 Aug, [facility] [place] [facility] [address] [id number] [place] [address]- 1471 Aug, [facility] [place] [facility] [address] [id number] [place] [address]- 9847 Aug, [facility] [place] [facility] [address] [id number] [place] [address]- 5055 Aug, [facility] [address] [id number] [place] [address]- 7284 Aug, [facility] [address] [id number] [place] [address]- 3693 Aug, [facility] [address] [id number] [place] [address]- 5751 July, [facility] [address] [id number] [place] [address]- 8934 July, [facility] [address] [id number] [place] [address]- 4224 July, [facility] [address] [id number] [place] [address]- 8528 July, [facility] [address] [id number] [place] [address]- 2096 July, [facility] [address] [id number] [place] [address]- 5163 July, [facility] [address] [id number] [place] [address]- 2045 Jun, [facility] [address] [id number] [place] [address]- 9050 Jun, [facility] [address] [id number] [place] [address] Jun, [facility] [address] [id number] [place] [address] Jun, [facility] [place] [facility] [address] [id number] [place] [address] Jun, [facility] [place] [facility] [address] [id number] [place] [address] Jun, [facility] [place] [facility] [address] [id number] [place] [address] Jun, [facility] [address] [id number] [place] [address] May, [facility] [place] [facility] [address] [id number] [place] [address] May, [facility] [place] [facility] [address] [facility] [id number] [place] [address] 26 Apr, 2012 [facility] [place] [facility] [address] [id number] [place] [address] Apr, 2012 [facility] [place] [facility] [address] [id number] [place] [address]- [address] Apr, 2012 [facility] [place] [facility] [address] [id number] [place] [address] Apr, 2012 [facility] [address] [facility] [id number] [place] [address] Apr, [facility] [place] [facility] [address] [id number] [place] [address] 08 Apr, 2012 [facility] [place] [facility] [address] [facility] [id number] [place] [address] 07 Apr, 2012 [facility] [place] [facility] [address] [facility] [id number] [place] [address] 07 Apr, 2012 [facility] [place] [facility] [address] [facility] [id number] [place] [address] 06 Apr, 2012 [facility] [place] [facility] [address] [facility] [id number] [place] [address] Apr, 2012 [facility] [place] [facility] [address] [id number] [place] [address] Apr, 2012 [facility] [place] [facility] [address] [facility] [id number] [place] [address] Mar, [facility] [place] [facility] [address] [id number] [place] [address] Mar, [facility] [place] [facility] [address] [id number] [place] [address] Mar, [facility] [address] [id number] [place] [address] Mar, [facility] [address] [id number] [place] [address] Mar, [facility] [address] [id number] [place] [address] Mar, [facility] [address] [id number] [place] [address] Mar, [facility] [address] [id number] [place] [address] Mar, [facility] [address] [id number] [place] [address] Mar, [facility] [address] [id number] [place] [address] Mar, [facility] [address] [id number] [place] [address] Mar, [facility] [address] [id number] [place] [address] Mar, [facility] [address] [id number] [place] [address] Mar, [facility] [address] [id number] [place] [address] Feb, [facility] [address] [id number] [place] [address]- [address] Feb, [facility] [address] [id number] [place] [address] Feb, [facility] [address] [id number] [place] [address] Feb, [facility] [address] [id number] [place] [address] 47[address] Feb, [facility] [place] [facility] [address] [id number] [place] [address] Feb, [facility] [place] [facility] [address] [id number] [place] [address]- 133[address] Feb, [facility] [place] [facility] [address] [id number] [place] [address]- [address] Feb, [facility] [place] [facility] [address] [id number] [place] [address]- [address] Feb, [facility] [place] [facility] [address] [id number] [place] [address]- [address] Feb, [facility] [place] [facility] [address] [id number] [place] [address]- [address] Feb, [facility] [place] [facility] [address] [id number] [place] [address]- 7965 Feb, [facility] [place] [facility] [address] [id number] [place] [address]- [address] Feb, [facility] [place] [facility] [address] [id number] [place] [address]- [address] Feb, [facility] [place] [facility] [address] [id number] [place] [address]- [address] Feb, [facility] [place] [facility] [address] [id number] [place] [address]- [address] Jan, [facility] [place] [facility] [address] [id number] [place] [address]- [address] Jan, [facility] [place] [facility] [address] [id number] [place] [address] Jan, [facility] [place] [facility] [address] [id number] [place] [address]- [address] Jan, [facility] [place] [facility] [address] [id number] [place] [address]- 265[address] Dec, [facility] [place] [facility] [address] [id number] [place] [address]- [address] 29 Dec, 2011 [facility] [place] [facility] [address] [id number] [place] [address]- [address] Dec, 2011 [facility] [place] [facility] [address] [id number] [place] [address] 39[address] Dec, 2011 [facility] [place] [facility] [address] [id number] [place] [address] Dec, 2011 [facility] [facility] [address] [id number] [place] [address] Dec, 2011 [facility] [place] [facility] [address] [id number] [place] [address] Dec, 2011 [facility] [place] [facility] [address] [id number] [place] [address] Dec, 2011 [facility] [place] [facility] [address] [id number] [place] [address] Dec, [facility] [address] [id number] [place] [address] 04 Dec, 2011 [facility] [place] [facility] [address] [id number] [place] [address] 03 Dec, 2011 [facility] [place] [facility] [address] [id number] [place] [address]279 25 Sep, 2011 [facility] [place] [address] [id number] [place] [address] 24 Sep, 2011 [facility] [place] [facility] [address] [id number] [place] [address] 20 Sep, 2011 [facility] [place] [facility] [address] [id number] [place] [address]- [address] 19 Sep, 2011 [facility] [place] [address] [id number] [place] [address] 17 Sep, 2011 [facility] [place] [facility] [address] [id number] [place] [address] 16 Sep, 2011 [facility] [place] [facility] [address] [id number] [place] [address] 14 Sep, 2011 [facility] [address] [id number] [place] [address]- 1406 13 Sep, 2011 [facility] [place] [address] [id number] [place] [address] 8424 12 Sep, 2011 [facility] [place] [address] [id number] [place] [address]- [address] 07 Sep, 2011 [facility] [address] [id number] [place] [address]- [address] 06 Sep, 2011 [facility] [place] [address] [id number] [place] [address]- 86[address] 06 Sep, 2011 [facility] [place] [address] [id number] [place] [address]- 1259 05 Nov, 2011 [facility] [address] [id number] [place] [address]- 2692 29 Oct, 2011 [facility] [address] [id number] [place] [address]- 6[address] 29 Oct, 2011 [facility] [address] [id number] [place] [address]- 1299 28 Oct, 2011 [facility] [address] [id number] [place] [address]- 6150 28 Oct, 2011 [facility] [address] [id number] [place] [address]- [address]107 23 Oct, 2011 [facility] [address] [id number] [place] [address] 1429 Oct, [facility] [address] [id number] [place] [address] Oct, [facility] [address] [id number] [place] [address] 9735 16 Oct, 2011 [facility] [address] [id number] [place] [address] 4630 Oct, [facility] [address] [id number] [place] [address]- 7170 Oct, [facility] [address] [id number] [place] [address] 7889 Oct, [facility] [address] [id number] [place] [address] Sep, [facility] [address] [id number] [place] [address] 2382 Sep, [facility] [address] [id number] [place] [address]- 0949 Sep, [facility] [address] [id number] [place] [address]- 6[address] Sep, [facility] [address] [id number] [place] [address] Sep, [facility] [address] [id number] [place] [address]- 8579 Sep, [facility] [address] [id number] [place] [address] 3310 Aug, [facility] [address] [id number] [place] [address]- 67[address] July, [facility] [address] [id number] [place] [address] 0472 July, [facility] [address] [id number] [place] [address] 7304 Jun, [facility] [address] [id number] [place] [address] 2917 Jun, [facility] [address] [id number] [place] [address]- 7146 Jun, [facility] [address] [id number] [place] [address]- 72[address] Jun, [facility] [address] [id number] [place] [address]- 4415 10 Jun, 2011 [facility] [address] [id number] [place] [address]- 9269 10 Jun, 2011 [facility] [address] [id number] [place] [address]- 6206 09 Jun, 2011 [facility] [address] [id number] [place] [address]- 8344 08 Jun, 2011 [facility] [address] [id number] [place] [address]- 5070 Jun, [facility] [address] [id number] [place] [address]- 3747 Jun, [facility] [address] [id number] [place] [address]- 0896 Jun, [facility] [address] [id number] [place] [address]- 1587 May, [facility] [address] [id number] [place] [address]- 1190 16 May, 2011 [facility] [address] [id number] [place] [address]- 5374 14 May, 2011 [facility] [address] [id number] [place] [address]- 9822 06 May, 2011 [facility] [address] [id number] [place] [address]- 5038 Apr, [facility] [address] [id number] [place] [address]- 6808 28 Apr, 2011 [facility] [address] [id number] [place] [address]- 0163 27 Apr, 2011 [facility] [address] [id number] [place] [address]- 3432 23 Apr, 2011 [facility] [address] [id number] [place] [address]- 7851 Apr, [facility] [address] [id number] [place] [address]- 7235 Apr, [facility] [address] [id number] [place] [address]- 0423 Apr, [facility] [address] [id number] [place] [address]- 1769 Apr, [facility] [address] [id number] [place] [address]- 1551 Mar, [facility] [address] [id number] [place] [address]- 0958 Mar, [facility] [address] [id number] [place] [address]- 4079 Mar, [facility] [address] [id number] [place] [address]- 2656 Mar, [facility] [address] [id number] [place] [address]- 9312 Mar, [facility] [address] [id number] [place] [address]- 4327 Mar, [facility] [address] [id number] [place] [address]- 6536 Mar, [facility] [address] [id number] [place] [address]- 7356 Mar, [facility] [address] [id number] [place] [address]- 9416 Mar, [facility] [address] [id number] [place] [address]- 1409 Mar, [facility] [address] [id number] [place] [address]- 6995 Mar, [facility] [address] [id number] [place] [address]- 5122 Mar, [facility] [address] [id number] [place] [address]- 4289 Mar, [facility] [address] [id number] [place] [address]- 2975 Mar, [facility] [address] [id number] [place] [address]- 6606 Mar, [facility] [address] [id number] [place] [address]- 1440 Mar, [facility] [address] [id number] [place] [address]- 9723 Feb, [facility] [address] [id number] [place] [address]- 5501 Feb, [facility] [address] [id number] [place] [address]- 7174 Feb, [facility] [address] [id number] [place] [address]- 5053 Jan, [facility] [address] [id number] [place] [address]- 9027 Jan, [facility] [address] [id number] [place] [address]- 4647 Jan, [facility] [address] [id number] [place] [address]- 8833 Dec, [facility] [address] [id number] [place] [address]- 5758 Dec, [facility] [address] [id number] [place] [address]- 6516 Nov, [facility] [address] [id number] [place] [address]- 8432 Oct, [facility] [address] [id number] [place] [address]- 2995 Oct, [facility] [address] [id number] [place] [address]- 9907 Oct, [facility] [address] [facility] [id number] [place] [address]- 2546 Sep, [facility] [address] [facility] [id number] [address] 2546 Apr, [facility] [address] [facility] [id number] [place] [address]- 2546 Feb, [facility] [address] [facility] [id number] [address]- 2546 Jan, IMMUNIZATIONS No Known Immunizations SOCIAL HISTORY Never Assessed REASON FOR VISIT EMR-[facility] PLAN OF CARE VITAL SIGNS MEDICATIONS No [...] 2/2 Benzos OD, pneumonia MRSA, MAYRA, Hypokalemia-- [facility] 12/20/2015 Hospitalization History COPD exacerbation, Asthma-[facility] 09/21/16 Hospitalization History COPD-[facility] 12/30/2016 Hospitalization History [facility]ARYANNE and dagoberto for inpatient-last around 2006 or so. Hospitalization History [facility] for COPD x2 Mar 2017 Hospitalization History Upper GI bleed at apr 2017 Hospitalization History [facility]- COPD Exacerbation, diarrhea 05/23/2017 Hospitalization History COPD exacerbation-[facility] 06/13/17 Hospitalization History [facility] 09/09/2017 Hospitalization History COPD-UTI--[facility] 11/2017
[2018-06-30 11:37] LABS: BILIRUBIN,URINE NEGATIVE (NEGATIVE); CLARITY,URINE CLEAR; COLOR,URINE YELLOW; GLUCOSE, URINE (UA) NEGATIVE (NEGATIVE); KETONES,URINE NEGATIVE (NEGATIVE); LEUKOCYTE ESTERASE ,URINE 1+ (NEGATIVE); NITRITE,URINE NEGATIVE (NEGATIVE); PH,URINE 6 (5-9); PROTEIN,URINE NEGATIVE (NEGATIVE); UROBILINOGEN,URINE NORMAL (NORMAL)
--- OUTSIDE RECORDS SUMMARY | 2018-06-30 11:37 | XMS REPORT ---
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 Active Problem TMJ (sprain of temporomandibular joint) S03.4XXA Active 45131422 Problem Migraine G43.909 Active 97181207 Problem Memory loss R41.3 Active 58332090 Problem Chronic constipation K59.09 Active 180823017 Problem Bipolar disorder with depression F31.30 Active 03751370 Problem Bipolar disorder, unspecified F31.9 Active 82817404 Problem Migraine without aura and without status migrainosus, not intractable G43.009 Active 178653344 Problem Chronic bronchitis, unspecified chronic bronchitis type J42 Active 34348067 Problem Methamphetamine use disorder, moderate, 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 Active 02841221 Problem Acute on chronic systolic congestive heart failure I50.23 Active 703884425 Problem Other emphysema J43.8 Active 75734677 Problem COPD exacerbation J44.1 Active 668430032 Problem Generalized anxiety disorder F41.1 Active 31114885 Problem Examination of eyes and vision V72.0 Active 960413524 Problem Diabetes E11.9 Active 661255130 Problem Intractable cyclical vomiting with nausea G43.A1 Active 02160252 Problem Anxiety F41.9 Active 92049218 Problem Chronic obstructive pulmonary disease, unspecified COPD type J44.9 Active 32278593 ALLERGIES No Information ENCOUNTERS Encounter Location Date Diagnosis [facility] [address], [place] [address] May, Chronic obstructive pulmonary disease with acute exacerbation J44.1 and Tobacco abuse Z72.0 [facility] [address], [place] [address] 117[address] May, Chronic obstructive pulmonary disease with acute exacerbation J44.1 [facility] [address], [place] [address] Apr, [facility] [id number] [place] [address] 61453- 6743 Apr, [facility] [id number] [place] [address] 51331- 2692 Feb, Diabetes E11.9 ; Chronic obstructive pulmonary disease with (acute) exacerbation J44.1 and Encounter for immunization Z23 [facility] [id number] [place] [address] 95761- 8185 Jan, COPD exacerbation J44.1 [facility] [id number] [place] [address] 99544- 2000 Jan, Dental abscess K04.7 [facility] [id number] [place] [address] 38311- 8946 Jan, COPD exacerbation J44.1 and Acute on chronic systolic congestive heart failure I50.23 [facility] [id number] [place] [address] 78740- 1356 Dec, [facility] [id number] [place] [address] 13938- 8450 Dec, [facility] [id number] [place] [address] 29170- 7595 Nov, [facility] [id number] [place] [address] 38161- 2291 Nov, COPD with exacerbation J44.1 and Urinary tract infection without hematuria, site unspecified N39.0 [facility] [id number] [place] [address] 51397- 5063 Nov, Chronic obstructive pulmonary disease, unspecified COPD type J44.9 [facility] [id number] [place] [address] 92350- 2268 Oct, [facility] [id number] [place] [address] 72675- 6638 Oct, [facility] [address], [place] [address] 6327 Oct, [facility] [address], [place] [address] 5527 Oct, [facility] [address], [place] [address] 0895 Oct, Thrush B37.0 [facility] [address] [place] [address] 67385- 3749 Sep, COPD with exacerbation J44.1 and Anxiety F41.9 [facility] [address], [place] [address] 0455 Sep, [facility] [address], [place] [address]- 7069 Sep, [facility] [address], [place] [address]- 0694 Sep, [facility] [address], [place] [address] 9921 Sep, Acute congestive heart failure, unspecified heart failure type I50.9 and Anxiety disorder, unspecified F41.9 [facility] [address], [place] [address] 8045 Sep, Heart failure, unspecified HF chronicity, unspecified heart failure type I50.9 [facility] [address], [place] [address]- 8727 Sep, [facility] [address], [place] [address] 2939 Aug, Chronic obstructive pulmonary disease with acute exacerbation J44.1 [facility] [address], [place] [address] 6385 Aug, [facility] [address], [place] [address] 5817 Aug, [facility] [address], [place] [address]- 8782 July, [facility] [id number] [place] [address] 52464- 6983 July, [facility] [id number] [place] [address] 16055- 2263 July, Diabetes E11.9 and Chronic obstructive pulmonary disease with acute exacerbation J44.1 [facility] [id number] [place] [address] 06749- 6374 Jun, Chronic obstructive pulmonary disease with acute exacerbation J44.1 ; Diabetes E11.9 and Tobacco abuse Z72.0 [facility] [id number] [place] [address] 81988- 3343 Jun, [facility] [id number] [place] [address] 26323- 3921 Jun, [facility] [id number] [place] [address] 61187- 7886 May, [facility] [id number] [place] [address] 75243- 3416 May, [facility] [address], [place] [address] May, [facility] [address], [place] [address]- 7418 16 May, 2017 [facility] [id number] [place] [address] 54342- 6606 15 May, 2017 [facility] [address] [place] [address] 31937- 7507 14 May, 2017 Diarrhea, unspecified type R19.7 and Intractable cyclical vomiting with nausea G43.A1 [facility] [address], [place] [address] 0440 May, [facility] [id number] [place] [address] 39457- 1406 May, [facility] [id number] [place] [address] 23557- 1930 Apr, COPD exacerbation J44.1 ; Esophageal candidiasis B37.81 ; Other acute gastritis with hemorrhage K29.01 and Acute posthemorrhagic anemia D62 [facility] [id number] [place] [address] 26617- 9740 Apr, Viral illness B34.9 and COPD exacerbation J44.1 [facility] [id number] [place] [address] 91079 -2193 Apr, Shortness of breath R06.02 and Pneumonia of both lower lobes due to infectious organism J18.9 [facility] [id number] [place] [address] 70589 -7439 Mar, COPD with acute exacerbation J44.1 [place] [facility] [address] 81216- 2899 Mar, Chronic obstructive pulmonary disease with acute exacerbation J44.1 and Diabetes E11.9 [facility] [facility] [id number] [place] [address] 35283- 5207 Mar, [facility] [id number] [place] [address] 50622- 0460 Mar, [facility] [id number] [place] [address] 97599 -2747 Mar, COPD exacerbation J44.1 [facility] [id number] [place] [address] 40079- 6290 Mar, [place] [id number] [place] [address] 19703- 8055 Mar, Migraine G43.909 ; Hypokalemia E87.6 and Type 2 diabetes mellitus without complications E11.9 [facility] [id number] [place] [address] 97540- 5606 Feb, [facility] [id number] [place] [address] 12960- 6072 Feb, [facility] [facility] [id number] [place] [address] 39568- 4580 Feb, Methamphetamine use disorder, moderate, 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 ; Major depressive disorder, recurrent, moderate F33.1 ; Anxiety disorder, unspecified F41.9 and Tobacco abuse Z72.0 [facility] [facility] [id number] [place] [address] 41342- 2485 Jan, Major depressive disorder, recurrent, moderate F33.1 [facility] [id number] [place] [address] 59437- 4140 Jan, [facility] [id number] [place] [address] 16978- 8991 Jan, [place] [facility] [id number] [place] [address] 58017- 4001 Jan, Major depressive disorder, recurrent, moderate F33.1 [facility] [id number] [place] [address] 60021- 0502 Jan, Major depressive disorder, recurrent, moderate F33.1 ; Anxiety disorder, unspecified F41.9 ; Methamphetamine use disorder, moderate, 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 and Tobacco abuse Z72.0 [place] [facility] [id number] [place] [address] 54495- 6275 Jan, [facility] [facility] [id number] [place] [address] 61243- 1408 Jan, Chronic obstructive pulmonary disease with acute exacerbation J44.1 and Diabetes E11.9 [facility] [id number] [place] [address] 36941- 1077 Jan, [facility] [id number] [place] [address] 73572- 8082 Jan, [place] [facility] [address] [place] [address] 44798- 8839 24 Oct, 2017 Acute respiratory failure with hypoxia J96.01 ; Chronic bronchitis, unspecified chronic bronchitis type J42 and Tobacco use Z72.0 [facility] [address] [place] [address] 28952- 2087 Dec, [facility] [address] [place] [address] [id number] Nov, Dental caries K02.9 and Dental examination Z01.20 [facility] [id number] [place] [address] 78564- 8024 Nov, Major depressive disorder, recurrent, moderate F33.1 ; Anxiety disorder, unspecified F41.9 and 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 [facility] [id number] [place] [address] [id number] Oct, Dental examination Z01.20 [facility] [id number] [place] [address] 73509- 8652 Oct, [facility] [id number] [place] [address] 41510- 7789 Oct, Diabetes E11.9 and Thrush B37.0 [facility] [id number] [place] [address] 90957- 2142 Oct, [facility] [id number] [place] [address] 94125- 6983 Oct, [facility] [address] [place] [address] 40595- 1751 Oct, [facility] [id number] [place] [address] 60608- 4775 Sep, Major depressive disorder, recurrent, moderate F33.1 ; Anxiety disorder, unspecified F41.9 and Bipolar disorder, unspecified F31.9 [facility] [address] [place] [address] 37964- 6730 Sep, Acute exacerbation of chronic obstructive pulmonary disease (COPD) J44.1 and Migraine G43.909 [facility] [address] [place] [address]- 3158 Sep, [facility] [address] [id number] Sep, [facility] [address], [place] [address]- 8135 Sep, Acute exacerbation of chronic obstructive pulmonary disease (COPD) J44.1 [facility] [address], [place] [address]266 Sep, Acute exacerbation of chronic obstructive pulmonary disease (COPD) J44.1 [facility] [address], [place] [address]- 9510 Aug, [facility] [address], [place] [address]- 9421 Aug, Major depressive disorder, recurrent, moderate F33.1 ; Anxiety disorder, unspecified F41.9 and Other 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 [facility] [address], [place] [address]- 4408 Aug, Wheezing R06.2 ; Non morbid obesity due to excess calories E66.09 ; Migraine without aura and without status migrainosus, not intractable G43.009 and Tobacco abuse Z72.0 [facility] [id number] [id number] 14 Aug, 2016 Encounter for dental examination Z01.20 [facility] [address], [place] [address]- 6618 02 Aug, 2016 Major depressive disorder, recurrent, moderate F33.1 ; Anxiety disorder, unspecified F41.9 and Other stimulant dependence with unspecified stimulant-induced disorder 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 [facility] [address], [place] [address]- 4568 July, [facility] [address], [place] [address]- 2683 July, [facility] [address] [place] [address]- 5605 July, [facility] [id number] [place] [address] 72995- 7483 July, Diabetes E11.9 [facility] [id number] [place] [address] 39714- 6639 Jun, Major depressive disorder, recurrent, moderate F33.1 [place] [facility] [id number] [place] [address] 54937- 4002 Jun, Major depressive disorder, recurrent, moderate F33.1 ; Other 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 ; Generalized anxiety disorder F41.1 and Bipolar disorder, unspecified F31.9 [place] [id number] [place] [address] 33654- 4257 Jun, Diabetes E11.9 ; Migraine G43.909 ; Thrush B37.0 and Wheezing R06.2 [facility] [address] [id number] Jun, Dental examination Z01.20 [place] [facility] [id number] [place] [address] 57517- 0914 Jun, [place] [id number] [place] [address] 43848- 6728 Jun, Major depressive disorder, recurrent, moderate F33.1 ; Anxiety disorder, unspecified F41.9 and 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 [facility] [address] [place] [address] 37835- 0990 Jun, [facility] [id number] [place] [address] 75688- 9944 Jun, Wheezing R06.2 [facility] [address] [id number] Jun, Dental caries K02.9 [facility] [id number] [place] [address] 82089- 2781 Jun, Major depressive disorder, recurrent, moderate F33.1 ; Anxiety disorder, unspecified F41.9 and 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 [facility] [id number] [place] [address] 20340- 9207 Jun, RLQ abdominal pain R10.31 ; Diabetes E11.9 ; Obesity, unspecified obesity severity, unspecified obesity type E66.9 ; Wheezing R06.2 and Abnormal urinalysis R82.90 [place] [address] 31931- 0085 May, [place] [facility] [address] 17876- 3934 May, Well woman exam Z01.419 ; Breast cancer screening Z12.39 ; Cervical cancer screening Z12.4 ; Urinary frequency R35.0 ; Edema, unspecified type R60.9 and Chronic constipation K59.09 [place] [address] 87376- 3351 May, Major depressive disorder, recurrent, moderate F33.1 ; Anxiety disorder, unspecified F41.9 and 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 [facility] [id number] [place] [address] [id number] May, Dental examination Z01.20 [facility] [facility] [id number] [place] [address] 31995- 9185 May, [place] [facility] [address] 46431- 7241 May, [facility] [address] 49557- 6754 May, Chronic constipation K59.09 [place] [id number] [place] [address] 26415- 8884 Apr, [facility] [id number] [place] [address] 92582- 9889 Apr, Major depressive disorder, recurrent, moderate F33.1 ; Anxiety disorder, unspecified F41.9 and 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 [place] [id number] [place] [address] 24129- 4712 Apr, [facility] [facility] [id number] [place] [address] 46649- 2141 Mar, Major depressive disorder, recurrent, moderate F33.1 [place] [facility] [id number] [place] [address] 83600- 5932 Mar, Major depressive disorder, recurrent, moderate F33.1 ; Generalized anxiety disorder F41.1 and Bipolar I disorder, most recent episode depressed with anxious distress F31.30 [place] [facility] [id number] [place] [address] 25900- 1025 Mar, Diabetes E11.9 ; Non morbid obesity due to excess calories E66.09 ; Breast cancer screening Z12.39 and Encounter for immunization Z23 [facility] [facility] [id number] [place] [address] 74108- 8495 Mar, Major depressive disorder, recurrent, moderate F33.1 ; Anxiety disorder, unspecified F41.9 and 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 [facility] [facility] [address] [place] [address] 41598- 4679 Mar, [facility] [id number] [place] [address] 40593- 1950 Feb, Major depressive disorder, recurrent, moderate F33.1 ; Anxiety disorder, unspecified F41.9 and 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 [place] [id number] [place] [address] 08575- 1740 Feb, [place] [id number] [place] [address] 56918- 3184 Feb, [place] [id number] [place] [address] 46591- 0583 Jan, Major depressive disorder, recurrent, moderate F33.1 ; Generalized anxiety disorder F41.1 and Bipolar disorder, current episode depressed, severe, without psychotic features F31.4 [facility] [address] [place] [address] 28903- 7874 Jan, Major depressive disorder, recurrent, moderate F33.1 ; Anxiety disorder, unspecified F41.9 and 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 [facility] [id number] [place] [address] 48257- 1068 Jan, Bronchitis J40 [facility] [address] 91480- 7940 Jan, [facility] [id number] [place] [address] 06959- 7325 Jan, [facility] [id number] [place] [address] 72328- 2619 Jan, Elbow injury, right, initial encounter S59.901A ; Multiple contusions T14.8 and Cervical strain, acute, initial encounter S16.1XXA [facility] [id number] [place] [address] 59652- 4738 Dec, Major depressive disorder, recurrent, moderate F33.1 ; Generalized anxiety disorder F41.1 and Bipolar disorder with depression F31.30 [facility] [id number] [place] [address] 72214- 3774 Dec, [facility] [id number] [place] [address] 83523- 5947 Dec, [facility] [id number] [place] [address] 72214- 0414 Dec, [facility] [id number] [place] [address] 78826- 1818 Dec, [facility] [id number] [place] [address] 71388- 4629 Dec, Yeast infection B37.9 [place] [address], [place] [address]- 1478 Dec, Pneumonia of both lungs due to methicillin resistant Staphylococcus aureus (MRSA), unspecified part of lung J15.212 and Benzodiazepine overdose, accidental or unintentional, subsequent encounter T42.4X1D [facility] [address], [place] [address]- 7177 Dec, [place] [id number] [place] [address] 90092- 3765 Dec, [place] [id number] [place] [address] 74666- 2729 Dec, Knee pain, left M25.562 and Edema, unspecified type R60.9 [place] [address] [place] [address] 52677- 6165 Dec, [place] [id number] [place] [address] 04506- 1083 Dec, Anxiety disorder, unspecified F41.9 and Bipolar disorder, unspecified F31.9 [place] [address] [place] [address] 13520- 9949 Nov, Major depressive disorder, recurrent, moderate F33.1 ; Anxiety disorder, unspecified F41.9 and 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9 and 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 [place] [id number] [place] [address] 21778- 6222 Oct, Chronic constipation K59.09 and Obesity, unspecified obesity severity, unspecified obesity type E66.9 [place] [facility] [id number] [place] [address] 03508- 0221 Oct, Obesity, unspecified obesity severity, unspecified obesity type E66.9 ; Chronic constipation K59.09 and Anxiety disorder, unspecified F41.9 [place] [id number] [place] [address] 32324- 8454 Oct, [place] [id number] [place] [address] 34212- 7156 Sep, Diabetes E11.9 ; Edema, unspecified type R60.9 ; Varicose vein of leg I83.90 and Obesity, unspecified obesity severity, unspecified obesity type E66.9 [place] [id number] [place] [address] 79055- 1955 Sep, Edema, unspecified type R60.9 ; Diabetes E11.9 and Knee pain , left M25.562 [place] [id number] [place] [address] 19188- 1113 Sep, [place] [id number] [place] [address] 92062- 6054 Sep, [place] [id number] [place] [address] 40460- 1013 Sep, Major depressive disorder, recurrent, moderate F33.1 ; Generalized anxiety disorder F41.1 and Bipolar disorder, unspecified F31.9 [place] [id number] [place] [address] 68268- 4823 Aug, Chondromalacia of left knee M94.262 [facility] [id number] [place] [address] 43901- 6081 24 Aug, 2015 Major depressive disorder, recurrent, moderate F33.1 ; Anxiety disorder, unspecified F41.9 and 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 [facility] [id number] [place] [address] 31566- 4234 Aug, [facility] [id number] [place] [address] 87792- 0302 Aug, Osteoarthritis of left knee M17.9 [facility] [id number] [place] [address] 60176- 3355 Aug, [facility] [id number] [place] [address] 09587- 5888 July, Major depressive disorder, recurrent, moderate F33.1 ; Anxiety disorder, unspecified F41.9 and 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 [facility] [id number] [place] [address] 98037- 9402 July, [facility] [id number] [place] [address] 43032- 3214 July, Chronic constipation K59.09 [facility] [id number] [place] [address] 41817- 6504 Jun, [facility] [id number] [place] [address] 10779- 1653 15 Jun, 2015 [facility] [id number] [place] [address] 66497- 7429 14 Jun, 2015 Osteoarthritis of left knee M17.9 [facility] [id number] [place] [address] 28672- 8340 Jun, [facility] [id number] [place] [address] 56410- 1917 Jun, Generalized anxiety disorder F41.1 ; Bipolar disorder, unspecified F31.9 and Major depressive disorder, recurrent, moderate F33.1 [place] [address] 79971- 6819 Jun, Migraine G43.909 [place] [address] 47521- 7289 Jun, Left knee pain M25.562 ; Chronic constipation K59.09 ; Dry mouth R68.2 ; Yeast vaginitis B37.3 and Memory loss R41.3 [place] [address] 07783- 3954 Jun, [place] [address] 53807- 8040 May, [place] [address] 07011- 1641 May, [place] [address] 45463- 6937 May, [place] [address] 10826- 1810 May, [place] [address] 16387- 4634 May, Acute bronchitis with COPD J44.0 ; Knee pain, left M25.562 and Encounter for tobacco use cessation counseling Z71.6 [place] [address] 18814- 9523 May, [place] [address] 60240- 4257 Apr, Diabetes E11.9 ; TMJ (sprain of temporomandibular joint) S03.4XXA ; Tobacco abuse Z72.0 ; Migraine G43.909 and Anxiety F41.9 [place] [id number] [place] [address] 84085- 2313 Apr, Generalized anxiety disorder F41.1 and Bipolar disorder, unspecified F31.9 [place] [address] [address]- 5375 24 Apr, 2015 Major depressive disorder, recurrent, moderate F33.1 ; Anxiety disorder, unspecified F41.9 and 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 [facility] [address] [address]- 4486 Apr, [facility] [id number] [place] [address] 25402- 7996 Mar, [facility] [id number] [place] [address] 19812- 3716 Feb, [facility] [id number] [place] [address] 73762- 7544 Feb, Major depressive disorder, recurrent, moderate F33.1 ; Anxiety disorder, unspecified F41.9 and 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 [facility] [id number] [place] [address] 71249- 0719 Feb, [facility] [id number] [place] [address] 98938- 9535 Feb, Generalized anxiety disorder F41.1 and Bipolar disorder, unspecified F31.9 [facility] [address] [address]- 2450 30 Jan, 2015 [facility] [address] [address]- 9306 18 Jan, 2015 [facility] [address] [address]- 3443 Jan, Bipolar disorder, unspecified F31.9 and Generalized anxiety disorder F41.1 [facility] [address] [address]- 5467 14 Dec, 2014 [facility] [address] [address]- 6885 Dec, Bipolar disorder, unspecified F31.9 and Generalized anxiety disorder F41.1 [facility] [id number] [place] [address] 17785- 6700 Dec, Generalized anxiety disorder F41.1 and Major depressive disorder, recurrent, moderate F33.1 [facility] [id number] [place] [address] 29981- 7228 Oct, Headache 784.0 ; Cough 786.2 ; Vomiting and diarrhea 787.03 and Dysuria 788.1 [facility] [id number] [place] [address] 29569- 6301 Aug, [facility] [address] 19355- 5695 Aug, Headache 784.0 and Shortness of breath 786.05 [facility] [id number] [place] [address] 65784- 1100 Aug, [facility] [id number] [place] [address] 24733- 9045 Aug, Migraine 346.90 [facility] [id number] [place] [address] 47496- 4190 Jun, [facility] [id number] [place] [address] 00682- 7176 Jun, [facility] [id number] [place] [address] 82030- 7630 May, [facility] [id number] [place] [address] 26655- 3605 May, [facility] [id number] [place] [address] 25246- 4547 May, [facility] [id number] [place] [address] 17006- 4069 May, [facility] [id number] [place] [address] 51879- 7872 May, [facility] [id number] [place] [address] 32293- 7648 May, [facility] [place] [facility] [address] [id number] [place] [address]- 0240 Apr, 2014 [facility] [place] [facility] [address] [id number] [place] 1346 Apr, 2014 [facility] [place] [facility] [address] [id number] [place] [address]- 4876 Apr, 2014 [facility] [place] [facility] [address] [id number] [place] [address]- 0973 Apr, [facility] [place] [facility] [address] [id number] [place] [address]- 6436 Apr, [facility] [place] [facility] [address] [id number] [place] [address]- 5447 Mar, [facility] [place] [facility] [address] [id number] [place] [address]- 9802 Mar, [facility] [place] [facility] [address] [id number] [place] [address]- 0119 Mar, [facility] [place] [facility] [address] [id number] [place] [address]- 1017 Mar, [facility] [place] [facility] [address] [facility] [id number] [place] [address]- 8940 Feb, [facility] [place] [facility] [address] [id number] [place] [address]- 4352 19 Feb, 2014 [facility] [place] [facility] [address] [id number] [place] [address]- 9846 18 Feb, 2014 [facility] [place] [facility] [address] [id number] [place] [address]- 9161 18 Feb, 2014 [facility] [place] [facility] [address] [id number] [place] [address]- 5010 16 Feb, 2014 [facility] [place] [facility] [address] [id number] [place] 8969 Feb, [facility] [place] [facility] [address] [id number] [place] [address]- 1242 Feb, [facility] [place] [facility] [address] [id number] [place] [address]- 9368 Feb, [facility] [place] [facility] [address] [id number] [place] 2219 Feb, [facility] [place] [facility] [address] [id number] [place] [address]- 2155 Feb, [facility] [place] [facility] [address] [id number] [place] [address]- 9920 Feb, [facility] [place] [facility] [address] [id number] [place] [address]- 5778 Feb, [facility] [place] [facility] [address] [id number] [place] [address]- 4904 Jan, [facility] [place] [facility] [address] [id number] [place] [address]- 0197 Jan, [facility] [place] [facility] [address] [id number] [place] [address]- 8163 Dec, [facility] [place] [facility] [address] [id number] [place] [address]- 1387 Dec, [facility] [place] [facility] [address] [id number] [place] [address]- 3378 Dec, [facility] [place] [facility] [address] [id number] [place] [address]- 5563 Dec, [facility] [place] [facility] [address] [id number] [place] [address]- 3197 Dec, [facility] [place] [facility] [address] [id number] [place] [address]- 2103 Dec, [facility] [place] [facility] [address] [id number] [place] [address]- 6978 Sep, [facility] [place] [facility] [address] [id number] [place] [address]- 4464 Sep, [facility] [place] [facility] [address] [id number] [place] [address]- 1713 Sep, [facility] [place] [facility] [address] [id number] [place] [address]- 3975 Sep, [facility] [place] [facility] [address] [id number] [place] [address]- 8256 Sep, [facility] [place] [facility] [address] [id number] [place] [address]- 3466 Sep, [facility] [place] [facility] [address] [id number] [place] [address]- 6979 Sep, [facility] [place] [facility] [address] [id number] [place] [address]- 1070 Sep, [facility] [place] [facility] [address] [id number] [place] [address]- 4252 Sep, [facility] [place] [facility] [address] [id number] [place] [address]- 8353 Sep, [facility] [place] [facility] [address] [id number] [place] [address]- 3947 Aug, [facility] [place] [facility] [address] [id number] [place] [address]- 5892 Aug, [facility] [place] [facility] [address] [id number] [place] [address]- 5744 Aug, [facility] [place] [facility] [address] [id number] [place] [address]- 3806 Aug, [facility] [place] [facility] [address] [id number] [place] [address]- 2853 Aug, [facility] [place] [facility] [address] [id number] [place] [address]- 1496 Aug, [facility] [place] [facility] [address] [id number] [place] [address]- 6593 Aug, [facility] [place] [facility] [address] [id number] [place] [address]- 3792 Aug, [facility] [address] [id number] [place] [address]- 2102 Aug, [facility] [place] [facility] [address] [id number] [place] [address]- 7728 Aug, [facility] [address] [id number] [place] [address]- 3089 Aug, [facility] [place] [facility] [address] [id number] [place] [address]- 2737 Aug, [facility] [place] [facility] [address] [id number] [place] [address]- 3546 Aug, [facility] [place] [facility] [address] [id number] [place] [address]- 5580 July, [facility] [place] [facility] [address] [id number] [place] [address]- 4772 July, [facility] [address] [id number] [place] [address]- 0157 July, [facility] [place] [facility] [address] [id number] [place] [address]- 5834 July, [facility] [address] [id number] [place] [address]- 1598 July, [facility] [place] [facility] [address] [id number] [place] [address]- 8493 July, [facility] [place] [facility] [address] [id number] [place] [address]- 7266 July, [facility] [place] [facility] [address] [id number] [place] [address]- 7977 Jun, [facility] [place] [facility] [address] [id number] [place] [address]- 5528 Jun, [facility] [place] [facility] [address] [id number] [place] [address]- 0617 Jun, [facility] [place] [facility] [address] [id number] [place] [address]- 1500 16 Jun, 2013 [facility] [place] [facility] [address] [id number] [place] [address]- 6561 16 Jun, 2013 [facility] [place] [facility] [address] [id number] [place] [address]- 9409 Jun, [facility] [place] [facility] [address] [id number] [place] [address]- 5455 Jun, [facility] [place] [facility] [address] [id number] [place] [address]- 4827 17 May, 2013 [facility] [place] [facility] [address] [id number] [place] [address]- 0735 17 May, 2013 [facility] [place] [facility] [address] [id number] [place] [address]- 0108 14 May, 2013 [facility] [place] [facility] [address] [id number] [place] [address]- 2734 14 May, 2013 [facility] [place] [facility] [address] [id number] [place] [address]- 4642 13 May, 2013 [facility] [place] [facility] [address] [id number] [place] [address]- 3751 13 May, 2013 [facility] [place] [facility] [address] [id number] [place] [address]- 9967 10 May, 2013 [facility] [place] [facility] [address] [id number] [place] [address]- 4358 10 May, 2013 [facility] [place] [facility] [address] [id number] [place] [address]- 8921 07 May, 2013 [facility] [place] [facility] [address] [id number] [place] [address]- 5793 Apr, [facility] [place] [facility] [address] [id number] [place] 2422 Apr, [facility] [place] [facility] [address] [id number] [place] [address]- 1562 18 Apr, 2013 [facility] [place] [facility] [address] [id number] [place] [address]- 1176 Apr, [facility] [place] [facility] [address] [id number] [place] [address]- 3076 Apr, [facility] [place] [facility] [address] [id number] [place] [address]- 9506 Apr, [facility] [place] [facility] [address] [id number] [place] [address]- 2394 Apr, [facility] [place] [facility] [address] [id number] [place] [address]- 5808 Apr, [facility] [place] [facility] [address] [id number] [place] [address]- 9367 Apr, [facility] [place] [facility] [address] [id number] [place] [address]- 2926 Apr, [facility] [place] [facility] [address] [id number] [place] [address]- 1237 Mar, [facility] [place] [facility] [address] [id number] [place] [address]- 8842 Mar, [facility] [place] [facility] [address] [facility] [id number] [place] [address]- 8685 Mar, [facility] [place] [facility] [address] [id number] [place] [address]- 2927 Mar, [facility] [place] [facility] [address] [id number] [place] [address]- 0181 Mar, [facility] [place] [facility] [address] [id number] [place] [address]- 4948 Mar, [facility] [place] [facility] [address] [id number] [place] 1016 Mar, [facility] [place] [facility] [address] [id number] [place] [address]- 0740 Mar, [facility] [place] [facility] [address] [id number] [place] [address]- 1179 Feb, [facility] [place] [facility] [address] [id number] [place] [address]- 0012 Feb, [facility] [place] [facility] [address] [id number] [place] [address]- 9624 Jan, [facility] [place] [facility] [address] [id number] [place] [address]- 4422 Jan, [facility] [place] [facility] [address] [id number] [place] [address]- 1735 Jan, [facility] [place] [facility] [address] [id number] [place] [address]- 5746 Jan, [facility] [place] [facility] [address] [id number] [place] [address]- 7791 Jan, [facility] [place] [facility] [address] [id number], [place] [address]- 7498 Jan, [facility] [place] [facility] [address] [id number] [place] [address]- 5553 Jan, [facility] [place] [facility] [address] [id number], [place] [address]- 2886 05 Jan, 2013 [facility] [place] [facility] [address] [id number], [place] [address]- 2878 Dec, [facility] [place] [facility] [address] [id number], [place] [address]- 8427 10 Dec, 2012 [facility] [place] [facility] [address] [id number] [place] [address]- 6540 10 Dec, 2012 [facility] [place] [facility] [address] [id number], [place] [address]- 3932 20 Nov, 2012 [facility] [place] [facility] [address] [id number] [place] [address]- 7350 13 Nov, 2012 [facility] [place] [facility] [address] [id number] [place] [address]- 7448 12 Nov, 2012 [facility] [address] [id number] [place] [address]- 7682 Nov, [facility] [place] [facility] [address] [id number] [place] [address]- 6485 Nov, [facility] [place] [facility] [address] [id number] [place] [address]- 0164 Nov, [facility] [place] [facility] [address] [id number] [place] [address]- 9651 Oct, [facility] [place] [facility] [address] [id number] [place] [address]- 1983 Oct, [facility] [place] [facility] [address] [id number] [place] [address]- 1862 Sep, [facility] [place] [facility] [address] [id number] [place] [address]- 6231 Sep, [facility] [place] [facility] [address] [id number] [place] [address]- 8521 Sep, [facility] [place] [facility] [address] [id number] [place] [address]- 6038 Sep, [facility] [place] [facility] [address] [id number] [place] [address]- 2733 Sep, [facility] [place] [facility] [address] [id number] [place] [address]- 8527 Sep, [facility] [place] [facility] [address] [id number] [place] [address]- 9285 Sep, [facility] [place] [facility] [address] [id number] [place] [address]- 1045 Aug, [facility] [place] [facility] [address] [id number] [place] [address]- 8460 Aug, [facility] [place] [facility] [address] [id number] [place] [address]- 0467 Aug, [facility] [place] [facility] [address] [id number] [place] [address]- 0762 Aug, [facility] [address] [id number] [place] [address]- 4751 Aug, [facility] [address] [id number] [place] [address]- 9482 Aug, [facility] [address] [id number] [place] [address]- 6015 July, [facility] [address] [id number] [place] [address]- 7722 July, [facility] [address] [id number] [place] [address]- 8160 July, [facility] [address] [id number] [place] [address]- 9220 July, [facility] [address] [id number] [place] [address]- 6667 July, [facility] [address] [id number] [place] [address]- 6385 July, [facility] [address] [id number] [place] [address]- 8655 Jun, [facility] [address] [id number] [place] [address]- 4257 Jun, [facility] [address] [id number] [place] [address]- 1197 Jun, [facility] [address] [id number] [place] [address]- 1502 Jun, [facility] [place] [facility] [address] [id number] [place] [address]- 3758 Jun, [facility] [place] [facility] [address] [id number] [place] [address]- 1576 Jun, [facility] [place] [facility] [address] [id number] [place] [address]- 3269 Jun, [facility] [address] [id number] [place] [address]- 7849 May, [facility] [place] [facility] [address] [id number] [place] [address]- 8976 May, [facility] [place] [facility] [address] [facility] [id number] [place] [address]- 3486 26 Apr, 2012 [facility] [place] [facility] [address] [id number] [place] [address] Apr, 2012 [facility] [place] [facility] [address] [id number] [place] [address] Apr, 2012 [facility] [place] [facility] [address] [id number] [place] [address] Apr, 2012 [facility] [address] [facility] [id number] [place] [address] Apr, [facility] [place] [facility] [address] [id number] [place] [address] 08 Apr, 2012 [facility] [place] [facility] [address] [facility] [id number] [place] [address] 07 Apr, 2012 [facility] [place] [facility] [address] [facility] [id number] [place] [address] 07 Apr, 2012 [facility] [place] [facility] [address] [facility] [id number] [place] [address] 06 Apr, 2012 [facility] [place] [facility] [address] [facility] [id number] [place] [address] 254 Apr, 2012 [facility] [place] [facility] [address] [id number] [place] [address] Apr, 2012 [facility] [place] [facility] [address] [facility] [id number] [place] [address] Mar, [facility] [place] [facility] [address] [id number] [place] [address] Mar, [facility] [place] [facility] [address] [id number] [place] [address] Mar, [facility] [address] [id number] [place] [address] Mar, [facility] [address] [id number] [place] [address] Mar, [facility] [address] [id number] [place] [address] Mar, [facility] [address] [id number] [place] [address] Mar, [facility] [address] [id number] [place] [address] 2011 Mar, [facility] [address] [id number] [place] [address] Mar, [facility] [address] [id number] [place] [address] Mar, [facility] [address] [id number] [place] [address] Mar, [facility] [address] [id number] [place] [address] Mar, [facility] [address] [id number] [place] [address] Mar, [facility] [address] [id number] [place] [address] Feb, [facility] [address] [id number] [place] [address] Feb, [facility] [address] [id number] [place] [address] Feb, [facility] [address] [id number] [place] [address] Feb, [facility] [address] [id number] [place] [address] Feb, [facility] [place] [facility] [address] [id number] [place] [address] Feb, [facility] [place] [facility] [address] [id number] [place] [address] Feb, [facility] [place] [facility] [address] [id number] [place] [address] Feb, [facility] [place] [facility] [address] [id number] [place] [address] Feb, [facility] [place] [facility] [address] [id number] [place] [address] Feb, [facility] [place] [facility] [address] [id number] [place] [address] Feb, [facility] [place] [facility] [address] [id number] [place] [address] 79[address] Feb, [facility] [place] [facility] [address] [id number] [place] [address] Feb, [facility] [place] [facility] [address] [id number] [place] [address] Feb, [facility] [place] [facility] [address] [id number] [place] [address] Feb, [facility] [place] [facility] [address] [id number] [place] [address] Jan, [facility] [place] [facility] [address] [id number] [place] [address] Jan, [facility] [place] [facility] [address] [id number] [place] [address] Jan, [facility] [place] [facility] [address] [id number] [place] [address] Jan, [facility] [place] [facility] [address] [id number] [place] [address] Dec, [facility] [place] [facility] [address] [id number] [place] [address] 29 Dec, 2011 [facility] [place] [facility] [address] [id number] [place] [address] Dec, 2011 [facility] [place] [facility] [address] [id number] [place] [address] Dec, 2011 [facility] [place] [facility] [address] [id number] [place] [address] Dec, 2011 [facility] [place] [facility] [address] [id number] [place] [address]- [address] Dec, 2011 [facility] [place] [facility] [address] [id number] [place] [address] Dec, 2011 [facility] [place] [facility] [address] [id number] [place] [address] Dec, 2011 [facility] [place] [facility] [address] [id number] [place] [address]- [address] Dec, [facility] [address] [id number] [place] [address] 04 Dec, 2011 [facility] [place] [facility] [address] [id number] [place] [address] 03 Dec, 2011 [facility] [place] [facility] [address] [id number] [place] [address] 25 Sep, 2011 [facility] [place] [facility] [address] [id number] [place] [address] 24 Sep, 2011 [facility] [place] [facility] [address] [id number] [place] [address] 20 Sep, 2011 [facility] [place] [facility] [address] [id number] [place] [address] 19 Sep, 2011 [facility] [place] [facility] [address] [id number] [place] [address] 2546 17 Sep, 2011 [facility] [place] [facility] [address] [id number] [place] [address] 16 Sep, 2011 [facility] [place] [facility] [address] [id number] [place] [address] 14 Sep, 2011 [facility] [place] [facility] [address] [id number] [place] [address] 7676 13 Sep, 2011 [facility] [place] [facility] [address] [id number] [place] [address] 4[address] 12 Sep, 2011 [facility] [place] [facility] [address] [id number] [place] [address] 48[address] 07 Sep, 2011 [facility] [place] [facility] [address] [id number] [place] [address] 06 Sep, 2011 [facility] [place] [facility] [address] [id number] [place] [address]- 8[address] 06 Sep, 2011 [facility] [place] [facility] [address] [id number] [place] [address] 6698 05 Nov, 2011 [facility] [place] [facility] [address] [id number] [place] [address] 7982 29 Oct, 2011 [facility] [place] [facility] [address] [id number] [place] [address] 1689 29 Oct, 2011 [facility] [place] [facility] [address] [id number] [place] [address] 1057 28 Oct, 2011 [facility] [place] [facility] [address] [id number] [place] [address]- 0727 28 Oct, 2011 [facility] [place] [facility] [address] [id number] [place] [address] 9875 23 Oct, 2011 [facility] [place] [facility] [address] [id number] [place] [address] Oct, [facility] [place] [facility] [address] [id number] [place] [address] 7468 Oct, [facility] [place] [facility] [address] [id number] [place] [address] 16 Oct, 2011 [facility] [place] [facility] [address] [id number] [place] [address] 9216 Oct, [facility] [address] [id number] [place] [address] 5844 Oct, [facility] [place] [facility] [address] [id number] [place] [address]604 Oct, [facility] [place] [facility] [address] [id number] [place] [address] 8926 Sep, [facility] [place] [facility] [address] [id number] [place] [address] 8683 Sep, [facility] [place] [facility] [address] [id number] [place] [address] Sep, [facility] [place] [facility] [address] [id number] [place] [address] 6968 Sep, [facility] [address] [id number] [place] [address] 1844 Sep, [facility] [place] [facility] [address] [id number] [place] [address] 1074 Sep, [facility] [place] [facility] [address] [id number] [place] [address] 9[address] Aug, [facility] [place] [facility] [address] [id number] [place] [address] 6[address] July, [facility] [place] [facility] [address] [id number] [place] [address] July, [facility] [place] [facility] [address] [id number] [place] [address] Jun, [facility] [place] [facility] [address] [id number] [place] [address] 5930 Jun, [facility] [place] [facility] [address] [id number] [place] [address] 8812 Jun, [facility] [place] [facility] [address] [id number] [place] [address] 0935 Jun, [facility] [place] [facility] [address] [id number] [place] [address] 9184 10 Jun, 2011 [facility] [place] [facility] [address] [id number] [place] [address]- 1099 10 Jun, 2011 [facility] [place] [facility] [address] [id number] [place] [address] 7306 09 Jun, 2011 [facility] [place] [facility] [address] [id number] [place] [address] 4265 08 Jun, 2011 [facility] [place] [facility] [address] [id number] [place] [address] 9438 Jun, [facility] [place] [facility] [address] [id number] [place] [address] 0099 Jun, [facility] [place] [facility] [address] [id number] [place] [address] 75[address] Jun, [facility] [place] [facility] [address] [id number] [place] [address] 6[address] May, [facility] [place] [facility] [address] [id number] [place] [address] 6475 16 May, 2011 [facility] [place] [facility] [address] [id number] [place] [address] 7883 14 May, 2011 [facility] [place] [facility] [address] [id number] [place] [address]- 2977 06 May, 2011 [facility] [place] [facility] [address] [id number] [place] [address] 6559 Apr, [facility] [place] [facility] [address] [id number] [place] [address] 1819 28 Apr, 2011 [facility] [place] [facility] [address] [id number] [place] [address] 6226 27 Apr, 2011 [facility] [place] [facility] [address] [id number] [place] [address] 7604 23 Apr, 2011 [facility] [place] [facility] [address] [id number] [place] [address] 4489 Apr, [facility] [address] [id number] [place] [address]- 9679 Apr, [facility] [address] [id number] [place] [address] 1503 Apr, [facility] [address] [id number] [place] [address] 2757 Apr, [facility] [address] [id number] [place] [address]- 0263 Mar, [facility] [address] [id number] [place] [address] 2113 Mar, [facility] [address] [id number] [place] [address] 1018 Mar, [facility] [address] [id number] [place] [address] 9677 Mar, [facility] [address] [id number] [place] [address] 9243 Mar, [facility] [address] [id number] [place] [address] 7023 Mar, [facility] [address] [id number] [place] [address] 7590 Mar, [facility] [address] [id number] [place] [address] 6810 Mar, [facility] [place] [facility] [address] [id number] [place] [address] 2913 Mar, [facility] [place] [facility] [address] [id number] [place] [address] 6638 Mar, [facility] [place] [facility] [address] [id number] [place] [address]- 7780 Mar, [facility] [address] [id number] [place] [address]- 1338 Mar, [facility] [place] [facility] [address] [id number] [place] [address]- 4058 Mar, [facility] [place] [facility] [address] [id number] [place] [address]- 3796 Mar, [facility] [place] [facility] [address] [id number] [place] [address]- 2015 Mar, [facility] [place] [facility] [address] [id number] [place] [address] 9709 Mar, [facility] [place] [facility] [address] [id number] [place] [address]- 8444 Feb, [facility] [place] [facility] [address] [id number] [place] [address] 2600 Feb, [facility] [place] [facility] [address] [id number] [place] [address]- 6405 Feb, [facility] [place] [facility] [address] [id number] [place] [address]- 6618 Jan, [facility] [place] [facility] [address] [id number] [place] [address]- 5823 Jan, [facility] [place] [facility] [address] [id number] [place] [address]- 4257 Jan, [facility] [place] [facility] [address] [id number] [place] [address]- 1348 Dec, [facility] [place] [facility] [address] [id number] [place] [address]- 1483 Dec, [facility] [place] [facility] [address] [id number] [place] [address]- 1554 Nov, [facility] [place] [facility] [address] [id number] [place] [address]- 9271 Oct, [facility] [place] [facility] [address] [id number] [place] [address]- 1360 Oct, [facility] [place] [facility] [address] [id number] [place] [address]- 5927 Oct, [facility] [address] [facility] [id number] [place] [address] 2546 Sep, [facility] [address] [facility] [id number], [place] [address] Apr, [facility] [address] [facility] [id number] [place] [address]- 2546 Feb, [facility] [address] [facility] [id number], [place] [address]- [address]46 Jan, IMMUNIZATIONS No Known Immunizations SOCIAL HISTORY Never Assessed REASON FOR VISIT EMR-[facility] [place] PLAN OF CARE VITAL SIGNS MEDICATIONS No [...] Benzos OD, pneumonia MRSA, MAYRA, Hypokalemia-- [facility] 12/20/2015 Hospitalization History COPD exacerbation, Asthma-[facility] 09/21/16 Hospitalization History COPD-[facility] 12/30/2016 Hospitalization History [facility] and dagoberto for inpatient-last around 2006 or so. Hospitalization History [facility] for COPD x2 Mar 2017 Hospitalization History Upper GI bleed at apr 2017 Hospitalization History [facility]- COPD Exacerbation, diarrhea 05/23/2017 Hospitalization History COPD exacerbation-[facility] 06/13/17 Hospitalization History CHF 09/09/2017 Hospitalization History COPD-UTI--[facility] 11/2017
--- OUTSIDE RECORDS SUMMARY | 2018-06-30 11:39 | XMS REPORT ---
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 Active Problem TMJ (sprain of temporomandibular joint) S03.4XXA Active 22596449 Problem Migraine G43.909 Active 04171293 Problem Memory loss R41.3 Active 02351470 Problem Chronic constipation K59.09 Active 369260039 Problem Bipolar disorder with depression F31.30 Active 52496643 Problem Bipolar disorder, unspecified F31.9 Active 59488172 Problem Migraine without aura and without status migrainosus, not intractable G43.009 Active 966799880 Problem Chronic bronchitis, unspecified chronic bronchitis type J42 Active 83303087 Problem Methamphetamine use disorder, moderate, 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 Active 23366642 Problem Acute on chronic systolic congestive heart failure I50.23 Active 242183597 Problem Other emphysema J43.8 Active 41145150 Problem COPD exacerbation J44.1 Active 817584397 Problem Generalized anxiety disorder F41.1 Active 03137370 Problem Examination of eyes and vision V72.0 Active 568934560 Problem Diabetes E11.9 Active 534485119 Problem Intractable cyclical vomiting with nausea G43.A1 Active 33035709 Problem Anxiety F41.9 Active 64654638 Problem Chronic obstructive pulmonary disease, unspecified COPD type J44.9 Active 75488841 ALLERGIES No Information ENCOUNTERS Encounter Location Date Diagnosis [facility] [address] [address] May, Chronic obstructive pulmonary disease with acute exacerbation J44.1 and Tobacco abuse Z72.0 [facility] [address] [address] May, Chronic obstructive pulmonary disease with acute exacerbation J44.1 [facility] [address] [address] 6427 Apr, [facility] [id number] [place] [address] 30588- 0815 Apr, [facility] [id number] [place] [address] 42061- 4266 Feb, Diabetes E11.9 ; Chronic obstructive pulmonary disease with (acute) exacerbation J44.1 and Encounter for immunization Z23 [facility] [id number] [place] [address] 60248- 9893 Jan, COPD exacerbation J44.1 [facility] [id number] [place] [address] 29856- 8852 Jan, Dental abscess K04.7 [facility] [id number] [place] [address] 33938- 1212 Jan, COPD exacerbation J44.1 and Acute on chronic systolic congestive heart failure I50.23 [facility] [id number] [place] [address] 95115- 6907 Dec, [facility] [id number] [place] [address] 20646- 9568 Dec, [facility] [id number] [place] [address] 27516- 9066 Nov, [facility] [id number] [place] [address] 30315- 0992 Nov, COPD with exacerbation J44.1 and Urinary tract infection without hematuria, site unspecified N39.0 [facility] [id number] [place] [address] 04739- 0808 Nov, Chronic obstructive pulmonary disease, unspecified COPD type J44.9 [facility] [id number] [place] [address] 97172- 5715 Oct, [facility] [id number] [place] [address] 54615- 2828 Oct, [facility] [address] [address] 5737 Oct, [facility] [address] [address]- 3443 Oct, [facility] [address] [address] 5013 Oct, Thrush B37.0 [facility] [address] [place] [address] 09598- 9740 Sep, COPD with exacerbation J44.1 and Anxiety F41.9 [facility] [address] [address]- 0222 Sep, [facility] [address] [address]- 2788 Sep, [facility] [address] [address]- 0086 Sep, [facility] [address] [address]- 7962 Sep, Acute congestive heart failure, unspecified heart failure type I50.9 and Anxiety disorder, unspecified F41.9 [facility] [address] [address]- 8061 Sep, Heart failure, unspecified HF chronicity, unspecified heart failure type I50.9 [facility] [address] [address]- 4860 Sep, [facility] [address] [address]- 0320 Aug, Chronic obstructive pulmonary disease with acute exacerbation J44.1 [facility] [address] [address]- 3619 Aug, [facility] [address] [address]- 3464 Aug, [facility] [address] [address]- 7827 July, [facility] [id number] [place] [address] 94635- 6423 July, [facility] [id number] [place] [address] 78534- 5801 July, Diabetes E11.9 and Chronic obstructive pulmonary disease with acute exacerbation J44.1 [facility] [id number] [place] [address] 92534- 1110 Jun, Chronic obstructive pulmonary disease with acute exacerbation J44.1 ; Diabetes E11.9 and Tobacco abuse Z72.0 [facility] [id number] [place] [address] 35572- 3631 Jun, [facility] [id number] [place] [address] 04293- 7044 Jun, [facility] [id number] [place] [address] 90576- 9790 May, [facility] [id number] [place] [address] 41546- 7460 May, [facility] [address] [address] May, [facility] [address] [address]- 2713 16 May, 2017 [facility] [id number] [place] [address] 85304- 0245 15 May, 2017 [facility] [address] [place] [address] 99512- 8921 14 May, 2017 Diarrhea, unspecified type R19.7 and Intractable cyclical vomiting with nausea G43.A1 [facility] [address] [address]- 7497 May, [facility] [id number] [place] [address] 93714- 2138 May, [facility] [id number] [place] [address] 07874- 7335 Apr, COPD exacerbation J44.1 ; Esophageal candidiasis B37.81 ; Other acute gastritis with hemorrhage K29.01 and Acute posthemorrhagic anemia D62 [facility] [id number] [place] [address] 85838- 2829 Apr, Viral illness B34.9 and COPD exacerbation J44.1 [facility] [id number] [place] [address] 31682 -1808 Apr, Shortness of breath R06.02 and Pneumonia of both lower lobes due to infectious organism J18.9 [facility] [id number] [place] [address] 78558 -4240 Mar, COPD with acute exacerbation J44.1 [place] [address] [address]- 5299 Mar, Chronic obstructive pulmonary disease with acute exacerbation J44.1 and Diabetes E11.9 [facility] [id number] [place] [address] 91242- 0948 Mar, [facility] [id number] [place] [address] 74963- 2979 Mar, [facility] [id number] [place] [address] 29578 -2199 Mar, COPD exacerbation J44.1 [facility] [id number] [place] [address] 28104- 5848 Mar, [facility] [id number] [place] [address] 05894- 4766 Mar, Migraine G43.909 ; Hypokalemia E87.6 and Type 2 diabetes mellitus without complications E11.9 [facility] [id number] [place] [address] 33663- 6229 Feb, [facility] [id number] [place] [address] 10232- 9625 Feb, [facility] [id number] [place] [address] 83915- 5204 Feb, Methamphetamine use disorder, moderate, 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 ; Major depressive disorder, recurrent, moderate F33.1 ; Anxiety disorder, unspecified F41.9 and Tobacco abuse Z72.0 [facility] [id number] [place] [address] 02554- 6917 Jan, Major depressive disorder, recurrent, moderate F33.1 [facility] [id number] [place] [address] 60290- 5563 Jan, [facility] [id number] [place] [address] 97667- 2202 Jan, [facility] [id number] [place] [address] 18034- 7838 Jan, Major depressive disorder, recurrent, moderate F33.1 [facility] [id number] [place] [address] 83921- 4409 Jan, Major depressive disorder, recurrent, moderate F33.1 ; Anxiety disorder, unspecified F41.9 ; Methamphetamine use disorder, moderate, 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 and Tobacco abuse Z72.0 [facility] [id number] [place] [address] 14134- 5745 Jan, [facility] [id number] [place] [address] 65567- 5557 Jan, Chronic obstructive pulmonary disease with acute exacerbation J44.1 and Diabetes E11.9 [facility] [id number] [place] [address] 47512- 0247 Jan, [facility] [id number] [place] [address] 59285- 6550 Jan, [facility] [address] [place] [address] 16455- 6883 24 Oct, 2017 Acute respiratory failure with hypoxia J96.01 ; Chronic bronchitis, unspecified chronic bronchitis type J42 and Tobacco use Z72.0 [facility] [address] [place] [address] 80690- 7662 Dec, [facility] [address] [place] [address] [id number] Nov, Dental caries K02.9 and Dental examination Z01.20 [facility] [id number] [place] [address] 44862- 6510 Nov, Major depressive disorder, recurrent, moderate F33.1 ; Anxiety disorder, unspecified F41.9 and Other stimulant dependence with unspecified stimulant-induced disorder 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 [facility] [id number] [place] [address] [id number] Oct, Dental examination Z01.20 [facility] [id number] [place] [address] 24297- 1705 Oct, [facility] [id number] [place] [address] 65790- 8864 Oct, Diabetes E11.9 and Thrush B37.0 [facility] [id number] [place] [address] 04447- 4318 Oct, [facility] [address] [place] [address] 48199- 3137 Oct, [facility] [address] [place] [address] 42404- 9276 Oct, [facility] [id number] [place] [address] 03191- 8024 Sep, Major depressive disorder, recurrent, moderate F33.1 ; Anxiety disorder, unspecified F41.9 and Bipolar disorder, unspecified F31.9 [facility] [address] [place] [address] 86534- 7685 Sep, Acute exacerbation of chronic obstructive pulmonary disease (COPD) J44.1 and Migraine G43.909 [facility] [address] [address]- 7972 Sep, [facility] [address] [id number] Sep, [facility] [address] [address]- 6881 Sep, Acute exacerbation of chronic obstructive pulmonary disease (COPD) J44.1 [facility] [address] [address]53 Sep, Acute exacerbation of chronic obstructive pulmonary disease (COPD) J44.1 [facility] [address] [address]- 3630 Aug, [facility] [address] [address]- 7978 Aug, Major depressive disorder, recurrent, moderate F33.1 ; Anxiety disorder, unspecified F41.9 and 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 [facility] [address] [address]- 5393 Aug, Wheezing R06.2 ; Non morbid obesity due to excess calories E66.09 ; Migraine without aura and without status migrainosus, not intractable G43.009 and Tobacco abuse Z72.0 [facility] [id number] [id number] 14 Aug, 2016 Encounter for dental examination Z01.20 [facility] [address] [address]- 2905 02 Aug, 2016 Major depressive disorder, recurrent, moderate F33.1 ; Anxiety disorder, unspecified F41.9 and Other stimulant dependence with unspecified stimulant-induced disorder 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 [facility] [address] [address]- 5132 July, [facility] [address] [address]- 8110 July, [facility] [id number] [address]- 9381 July, [facility] [id number] [place] [address] 02042- 3560 July, Diabetes E11.9 [facility] [id number] [place] [address] 29328- 7260 Jun, Major depressive disorder, recurrent, moderate F33.1 [facility] [id number] [place] [address] 64041- 5187 Jun, Major depressive disorder, recurrent, moderate F33.1 ; Other 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 ; Generalized anxiety disorder F41.1 and Bipolar disorder, unspecified F31.9 [facility] [id number] [place] [address] 63663- 4433 Jun, Diabetes E11.9 ; Migraine G43.909 ; Thrush B37.0 and Wheezing R06.2 [facility] [address] [id number] Jun, Dental examination Z01.20 [facility] [id number] [place] [address] 50682- 6472 Jun, [facility] [id number] [place] [address] 05309- 8188 Jun, Major depressive disorder, recurrent, moderate F33.1 ; Anxiety disorder, unspecified F41.9 and 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 [facility] [address] [place] [address] 33096- 4589 Jun, [facility] [id number] [place] [address] 04110- 3886 Jun, Wheezing R06.2 [facility] [address] [id number] Jun, Dental caries K02.9 [facility] [id number] [place] [address] 64411- 6882 Jun, Major depressive disorder, recurrent, moderate F33.1 ; Anxiety disorder, unspecified F41.9 and Other 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 [facility] [id number] [place] [address] 72691- 0353 Jun, RLQ abdominal pain R10.31 ; Diabetes E11.9 ; Obesity, unspecified obesity severity, unspecified obesity type E66.9 ; Wheezing R06.2 and Abnormal urinalysis R82.90 [place] [address] 27482- 9627 May, [facility] [address] 89921- 0775 May, Well woman exam Z01.419 ; Breast cancer screening Z12.39 ; Cervical cancer screening Z12.4 ; Urinary frequency R35.0 ; Edema, unspecified type R60.9 and Chronic constipation K59.09 [facility] [address] 15340- 4796 May, Major depressive disorder, recurrent, moderate F33.1 ; Anxiety disorder, unspecified F41.9 and 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 [facility] [id number] [place] [address] [id number] May, Dental examination Z01.20 [facility] [id number] [place] [address] 58181- 0809 May, [facility] [address] 51468- 1473 May, [facility] [address] 66650- 8180 May, Chronic constipation K59.09 [facility] [id number] [place] [address] 45207- 7431 Apr, [facility] [id number] [place] [address] 72203- 1529 Apr, Major depressive disorder, recurrent, moderate F33.1 ; Anxiety disorder, unspecified F41.9 and 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 [facility] [id number] [place] [address] 56275- 8622 Apr, [facility] [id number] [place] [address] 46093- 3067 Mar, Major depressive disorder, recurrent, moderate F33.1 [facility] [id number] [place] [address] 95913- 6907 Mar, Major depressive disorder, recurrent, moderate F33.1 ; Generalized anxiety disorder F41.1 and Bipolar I disorder, most recent episode depressed with anxious distress F31.30 [facility] [id number] [place] [address] 47994- 4584 Mar, Diabetes E11.9 ; Non morbid obesity due to excess calories E66.09 ; Breast cancer screening Z12.39 and Encounter for immunization Z23 [facility] [id number] [place] [address] 39614- 4002 Mar, Major depressive disorder, recurrent, moderate F33.1 ; Anxiety disorder, unspecified F41.9 and 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 [facility] [address] [place] [address] 24697- 9057 Mar, [facility] [id number] [place] [address] 12879- 5165 Feb, Major depressive disorder, recurrent, moderate F33.1 ; Anxiety disorder, unspecified F41.9 and 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 [facility] [id number] [place] [address] 36434- 9378 Feb, [facility] [id number] [place] [address] 07057- 2411 Feb, [facility] [id number] [place] [address] 37659- 6552 Jan, Major depressive disorder, recurrent, moderate F33.1 ; Generalized anxiety disorder F41.1 and Bipolar disorder, current episode depressed, severe, without psychotic features F31.4 [facility] [address] [place] [address] 66532- 9695 Jan, Major depressive disorder, recurrent, moderate F33.1 ; Anxiety disorder, unspecified F41.9 and 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 [facility] [id number] [place] [address] 36074- 1624 Jan, Bronchitis J40 [facility] [address] 59955- 3649 Jan, [facility] [id number] [place] [address] 08315- 5790 Jan, [facility] [id number] [place] [address] 73159- 8000 Jan, Elbow injury, right, initial encounter S59.901A ; Multiple contusions T14.8 and Cervical strain, acute, initial encounter S16.1XXA [facility] [id number] [place] [address] 38877- 9152 Dec, Major depressive disorder, recurrent, moderate F33.1 ; Generalized anxiety disorder F41.1 and Bipolar disorder with depression F31.30 [facility] [id number] [place] [address] 38868- 0381 Dec, [facility] [id number] [place] [address] 16503- 8211 Dec, [facility] [id number] [place] [address] 58348- 7504 Dec, [facility] [id number] [place] [address] 91298- 6668 Dec, [facility] [id number] [place] [address] 93143- 1303 Dec, Yeast infection B37.9 [place] [id number] [address]- 4221 Dec, Pneumonia of both lungs due to methicillin resistant Staphylococcus aureus (MRSA), unspecified part of lung J15.212 and Benzodiazepine overdose, accidental or unintentional, subsequent encounter T42.4X1D [facility] [address] [address]- 7514 Dec, [facility] [id number] [place] [address] 37356- 0194 Dec, [facility] [id number] [place] [address] 82657- 3343 Dec, Knee pain, left M25.562 and Edema, unspecified type R60.9 [facility] [address] [place] [address] 87408- 8993 Dec, [facility] [id number] [place] [address] 67770- 8627 Dec, Anxiety disorder, unspecified F41.9 and Bipolar disorder, unspecified F31.9 [facility] [address] [place] [address] 27566- 6146 Nov, Major depressive disorder, recurrent, moderate F33.1 ; Anxiety disorder, unspecified F41.9 and 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 [facility] [address] [address]- 6392 Nov, [facility] [address] [place] [address] 12043- 0993 Nov, Migraine without aura and without status migrainosus, not intractable G43.009 [facility] [address] [place] [address] 56387- 9386 Nov, Migraine G43.909 [facility] [address] [place] [address] 97888- 0618 Nov, [facility] [address] [place] [address]- 2624 Nov, Major depressive disorder, recurrent, moderate F33.1 ; Anxiety disorder, unspecified F41.9 and 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 [facility] [id number] [place] [address] 63122- 3359 Oct, Chronic constipation K59.09 and Obesity, unspecified obesity severity, unspecified obesity type E66.9 [address] [address] [id number] [place] [id number]- [id number] Oct, Obesity, unspecified obesity severity, unspecified obesity type E66.9 ; Chronic constipation K59.09 and Anxiety disorder, unspecified F41.9 [id number] [place] [id number] Oct, [id number] [place], [place] [address] 11501- 2803 Sep, Diabetes E11.9 ; Edema, unspecified type R60.9 ; Varicose vein of leg I83.90 and Obesity, unspecified obesity severity, unspecified obesity type E66.9 [facility] [id number] [place] [address] 32431- 1601 Sep, Edema, unspecified type R60.9 ; Diabetes E11.9 and Knee pain , left M25.562 [facility] [id number] [place] [address] 58859- 7346 Sep, [facility] [id number] [place] [address] 22733- 2332 Sep, [facility] [id number] [place] [address] 51341- 0802 Sep, Major depressive disorder, recurrent, moderate F33.1 ; Generalized anxiety disorder F41.1 and Bipolar disorder, unspecified F31.9 [facility] [id number] [place] [address] 83417- 8051 Aug, Chondromalacia of left knee M94.262 [facility] [id number] [place] [address] 19706- 6530 24 Aug, 2015 Major depressive disorder, recurrent, moderate F33.1 ; Anxiety disorder, unspecified F41.9 and 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 [facility] [id number] [place] [address] 34564- 3929 Aug, [facility] [id number] [place] [address] 94291- 0502 Aug, Osteoarthritis of left knee M17.9 [facility] [id number] [place] [address] 60332- 9135 Aug, [facility] [id number] [place] [address] 82402- 0018 July, Major depressive disorder, recurrent, moderate F33.1 ; Anxiety disorder, unspecified F41.9 and 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 [facility] [id number] [place] [address] 10158- 1881 July, [facility] [id number] [place] [address] 40855- 9927 July, Chronic constipation K59.09 [facility] [id number] [place] [address] 97717- 8168 Jun, [facility] [id number] [place] [address] 34797- 0138 15 Jun, 2015 [facility] [id number] [place] [address] 28905- 1625 14 Jun, 2015 Osteoarthritis of left knee M17.9 [facility] [id number] [place] [address] 16355- 6177 Jun, [facility] [id number] [place] [address] 77480- 9335 Jun, Generalized anxiety disorder F41.1 ; Bipolar disorder, unspecified F31.9 and Major depressive disorder, recurrent, moderate F33.1 [facility] [address] 11992- 9943 Jun, Migraine G43.909 [facility] [address] 32058- 9424 Jun, Left knee pain M25.562 ; Chronic constipation K59.09 ; Dry mouth R68.2 ; Yeast vaginitis B37.3 and Memory loss R41.3 [facility] [address] 20212- 3484 Jun, [facility] [address] 85426- 2474 May, [facility] [address] 13863- 3259 May, [facility] [address] 91403- 8908 May, [facility] [address] 57342- 2786 May, [facility] [address] 07783- 7207 May, Acute bronchitis with COPD J44.0 ; Knee pain, left M25.562 and Encounter for tobacco use cessation counseling Z71.6 [facility] [address] 81377- 7762 May, [facility] [address] 54618- 5588 Apr, Diabetes E11.9 ; TMJ (sprain of temporomandibular joint) S03.4XXA ; Tobacco abuse Z72.0 ; Migraine G43.909 and Anxiety F41.9 [facility] [id number] [place] [address] 77168- 1985 Apr, Generalized anxiety disorder F41.1 and Bipolar disorder, unspecified F31.9 [facility] [address] [address] 1915 24 Apr, 2015 Major depressive disorder, recurrent, moderate F33.1 ; Anxiety disorder, unspecified F41.9 and 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 [facility] [address] [address]- 3346 Apr, [facility] [id number] [place] [address] 84318- 7894 Mar, [facility] [id number] [place] [address] 87012- 8866 Feb, [facility] [id number] [place] [address] 15227- 5359 Feb, Major depressive disorder, recurrent, moderate F33.1 ; Anxiety disorder, unspecified F41.9 and 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 [facility] [address] [place] [address] 96729- 8382 Feb, [facility] [id number] [place] [address] 52508- 3007 Feb, Generalized anxiety disorder F41.1 and Bipolar disorder, unspecified F31.9 [facility] [address] [address]- 4077 30 Jan, 2015 [facility] [address] [address]- 7816 18 Jan, 2015 [facility] [address] [address]- 5408 Jan, Bipolar disorder, unspecified F31.9 and Generalized anxiety disorder F41.1 [facility] [address] [address]- 4269 14 Dec, 2014 [facility] [address] [address]- 5837 Dec, Bipolar disorder, unspecified F31.9 and Generalized anxiety disorder F41.1 [facility] [id number] [place] [address] 70408- 2143 Dec, Generalized anxiety disorder F41.1 and Major depressive disorder, recurrent, moderate F33.1 [facility] [id number] [place] [address] 88631- 6857 Oct, Headache 784.0 ; Cough 786.2 ; Vomiting and diarrhea 787.03 and Dysuria 788.1 [facility] [id number] [place] [address] 26989- 5652 Aug, [facility] [address] 69363- 6423 Aug, Headache 784.0 and Shortness of breath 786.05 [facility] [id number] [place] [address] 22029- 6207 Aug, [facility] [id number] [place] [address] 74120- 7059 Aug, Migraine 346.90 [facility] [id number] [place] [address] 28801- 2192 Jun, [facility] [id number] [place] [address] 08946- 3458 Jun, [facility] [id number] [place] [address] 23545- 9730 May, [facility] [id number] [place] [address] 51808- 2093 May, [facility] [id number] [place] [address] 27376- 4076 May, [facility] [id number] [place] [address] 84974- 5253 May, [facility] [address] [place] [address] 19838- 0236 May, [facility] [id number] [place] [address] 48568- 0673 May, [facility] [place] [facility] [address] [id number] [place] [address]- 2340 Apr, 2014 [facility] [place] [facility] [address] [id number] [place] 0836 Apr, 2014 [facility] [place] [facility] [address] [id number] [place] [address]- 5316 Apr, 2014 [facility] [place] [facility] [address] [id number] [place] [address]- 4891 Apr, [facility] [place] [facility] [address] [id number] [place] [address]- 9900 Apr, [facility] [place] [facility] [address] [id number] [place] [address]- 2740 Mar, [facility] [place] [facility] [address] [id number] [place] [address]- 9659 Mar, [facility] [place] [facility] [address] [id number] [place] [address]- 4732 Mar, [facility] [place] [facility] [address] [id number] [place] [address]- 7916 Mar, [facility] [place] [facility] [address] [facility] [id number] [place] [address]- 5760 Feb, [facility] [place] [facility] [address] [id number] [place] [address]- 9701 19 Feb, 2014 [facility] [place] [facility] [address] [id number] [place] [address]- 1265 18 Feb, 2014 [facility] [place] [facility] [address] [id number] [place] [address]- 0471 18 Feb, 2014 [facility] [place] [facility] [address] [id number] [place] [address]- 3525 16 Feb, 2014 [facility] [place] [facility] [address] [id number] [place] 2098 Feb, [facility] [place] [facility] [address] [id number] [place] [address]- 7273 Feb, [facility] [place] [facility] [address] [id number] [place] [address]- 2882 Feb, [facility] [place] [facility] [address] [id number] [place] 5374 Feb, [facility] [place] [facility] [address] [id number] [place] [address]- 1856 Feb, [facility] [place] [facility] [address] [id number] [place] [address]- 1932 Feb, [facility] [place] [facility] [address] [id number] [place] [address]- 3602 Feb, [facility] [place] [facility] [address] [id number] [place] [address]- 3741 Jan, [facility] [place] [facility] [address] [id number] [place] [address]- 2889 Jan, [facility] [place] [facility] [address] [id number] [place] [address]- 9086 Dec, [facility] [place] [facility] [address] [id number] [place] [address]- 7927 Dec, [facility] [place] [facility] [address] [id number] [place] [address]- 8341 Dec, [facility] [place] [facility] [address] [id number] [place] [address]- 9537 Dec, [facility] [place] [facility] [address] [id number] [place] [address]- 2908 Dec, [facility] [place] [facility] [address] [id number] [place] [address]- 0267 Dec, [facility] [place] [facility] [address] [id number] [place] [address]- 2748 Sep, [facility] [place] [facility] [address] [id number] [place] [address]- 9505 Sep, [facility] [place] [facility] [address] [id number] [place] [address]- 1123 Sep, [facility] [place] [facility] [address] [id number] [place] [address]- 3104 Sep, [facility] [place] [facility] [address] [id number] [place] [address]- 7919 Sep, [facility] [place] [facility] [address] [id number] [place] [address]- 2191 Sep, [facility] [place] [facility] [address] [id number] [place] [address]- 9839 Sep, [facility] [place] [facility] [address] [id number] [place] [address]- 0139 Sep, [facility] [place] [facility] [address] [id number] [place] [address]- 2096 Sep, [facility] [place] [facility] [address] [id number] [place] [address]- 8754 Sep, [facility] [place] [facility] [address] [id number] [place] [address]- 9491 Aug, [facility] [place] [facility] [address] [id number] [place] [address]- 6628 Aug, [facility] [place] [facility] [address] [id number] [place] [address]- 1793 Aug, [facility] [place] [facility] [address] [id number] [place] [address]- 8263 Aug, [facility] [place] [facility] [address] [id number] [place] [address]- 8161 Aug, [facility] [place] [facility] [address] [id number] [place] [address]- 6467 Aug, [facility] [place] [facility] [address] [id number] [place] [address]- 9463 Aug, [facility] [place] [facility] [address] [id number] [place] [address]- 9759 Aug, [facility] [address] [id number] [place] [address]- 6247 Aug, [facility] [place] [facility] [address] [id number] [place] [address]- 6843 Aug, [facility] [address] [id number] [place] [address]- 8258 Aug, [facility] [place] [facility] [address] [id number] [place] [address]- 5186 Aug, [facility] [place] [facility] [address] [id number] [place] [address]- 6748 Aug, [facility] [place] [facility] [address] [id number] [place] [address]- 3077 July, [facility] [place] [facility] [address] [id number] [place] [address]- 4828 July, [facility] [address] [id number] [place] [address]- 5965 July, [facility] [place] [facility] [address] [id number] [place] [address]- 1902 July, [facility] [address] [id number] [place] [address]- 4737 July, [facility] [place] [facility] [address] [id number] [place] [address]- 1475 July, [facility] [place] [facility] [address] [id number] [place] [address]- 5263 July, [facility] [place] [facility] [address] [id number] [place] [address]- 4979 Jun, [facility] [place] [facility] [address] [id number] [place] [address]- 9685 Jun, [facility] [place] [facility] [address] [id number] [place] [address]- 9189 Jun, [facility] [place] [facility] [address] [id number] [place] [address]- 4825 16 Jun, 2013 [facility] [place] [facility] [address] [id number] [place] [address]- 1391 16 Jun, 2013 [facility] [place] [facility] [address] [id number] [place] [address]- 4706 Jun, [facility] [place] [facility] [address] [id number] [place] [address]- 2837 Jun, [facility] [place] [facility] [address] [id number] [place] [address]- 3247 17 May, 2013 [facility] [place] [facility] [address] [id number] [place] [address]- 3982 17 May, 2013 [facility] [place] [facility] [address] [id number] [place] [address]- 1381 14 May, 2013 [facility] [place] [facility] [address] [id number] [place] [address]- 5986 14 May, 2013 [facility] [place] [facility] [address] [id number] [place] [address]- 4284 13 May, 2013 [facility] [place] [facility] [address] [id number] [place] [address]- 7765 13 May, 2013 [facility] [place] [facility] [address] [id number] [place] [address]- 4682 10 May, 2013 [facility] [place] [facility] [address] [id number] [place] [address]- 5142 10 May, 2013 [facility] [place] [facility] [address] [id number] [place] [address]- 0840 07 May, 2013 [facility] [place] [facility] [address] [id number] [place] [address]- 2929 Apr, [facility] [place] [facility] [address] [id number] [place] 0422 Apr, [facility] [place] [facility] [address] [id number] [place] [address]- 9666 18 Apr, 2013 [facility] [place] [facility] [address] [id number] [place] [address]- 9696 Apr, [facility] [place] [facility] [address] [id number] [place] [address]- 2936 Apr, [facility] [place] [facility] [address] [id number] [place] [address]- 2756 Apr, [facility] [place] [facility] [address] [id number] [place] [address]- 2127 Apr, [facility] [place] [facility] [address] [id number] [place] [address]- 5847 Apr, [facility] [place] [facility] [address] [id number] [place] [address]- 1825 Apr, [facility] [place] [facility] [address] [id number] [place] [address]- 9882 Apr, [facility] [place] [facility] [address] [id number] [place] [address]- 4139 Mar, [facility] [place] [facility] [address] [id number] [place] [address]- 5604 Mar, [facility] [place] [facility] [address] [facility] [id number] [place] [address]- 5038 Mar, [facility] [place] [facility] [address] [id number] [place] [address]- 7652 Mar, [facility] [place] [facility] [address] [id number] [place] [address]- 4388 Mar, [facility] [place] [facility] [address] [id number] [place] [address]- 0421 Mar, [facility] [place] [facility] [address] [id number] [place] 5796 Mar, [facility] [place] [facility] [address] [id number] [place] [address]- 4776 Mar, [facility] [place] [facility] [address] [id number] [place] [address]- 4730 Feb, [facility] [place] [facility] [address] [id number] [place] [address]- 7354 Feb, [facility] [place] [facility] [address] [id number] [place] [address]- 9920 Jan, [facility] [place] [facility] [address] [id number] [place] [address]- 6274 Jan, [facility] [place] [facility] [address] [id number] [place] [address]- 2823 Jan, [facility] [place] [facility] [address] [id number] [place] [address]- 5265 Jan, [facility] [place] [facility] [address] [id number] [place] [address]- 6079 Jan, [facility] [place] [facility] [address] [id number] [place] [address]- 4912 Jan, [facility] [place] [facility] [address] [id number] [place] [address]- 6990 Jan, [facility] [place] [facility] [address] [id number] [place] [address]- 9102 05 Jan, 2013 [facility] [place] [facility] [address] [id number] [place] [address]- 0697 Dec, [facility] [place] [facility] [address] [id number] [place] [address]- 8090 10 Dec, 2012 [facility] [place] [facility] [address] [id number] [place] [address]- 1973 10 Dec, 2012 [facility] [place] [facility] [address] [id number] [place] [address]- 6665 20 Nov, 2012 [facility] [place] [facility] [address] [id number] [place] [address]- 9755 13 Nov, 2012 [facility] [place] [facility] [address] [id number] [place] [address]- 4402 12 Nov, 2012 [facility] [address] [id number] [place] [address]- 5144 Nov, [facility] [place] [facility] [address] [id number] [place] [address]- 7897 Nov, [facility] [place] [facility] [address] [id number] [place] [address]- 5127 Nov, [facility] [place] [facility] [address] [id number] [place] [address]- 5731 Oct, [facility] [place] [facility] [address] [id number] [place] [address]- 6055 Oct, [facility] [place] [facility] [address] [id number] [place] [address]- 8686 Sep, [facility] [place] [facility] [address] [id number] [place] [address]- 2378 Sep, [facility] [place] [facility] [address] [id number] [place] [address]- 3365 Sep, [facility] [place] [facility] [address] [id number] [place] [address]- 3989 Sep, [facility] [place] [facility] [address] [id number] [place] [address]- 3271 Sep, [facility] [place] [facility] [address] [id number] [place] [address]- 5026 Sep, [facility] [place] [facility] [address] [id number] [place] [address]- 9730 Sep, [facility] [place] [facility] [address] [id number] [place] [address]- 8501 Aug, [facility] [place] [facility] [address] [id number] [place] [address]- 7738 Aug, [facility] [place] [facility] [address] [id number] [place] [address]- 4965 Aug, [facility] [place] [facility] [address] [id number] [place] [address]- 3206 Aug, [facility] [address] [id number] [place] [address] Aug, [facility] [address] [id number] [place] [address] Aug, [facility] [address] [id number] [place] [address] July, [facility] [address] [id number] [place] [address] July, [facility] [address] [id number] [place] [address] July, [facility] [address] [id number] [place] [address] July, [facility] [address] [id number] [place] [address] July, [facility] [address] [id number] [place] [address] July, [facility] [address] [id number] [place] [address] Jun, [facility] [address] [id number] [place] [address] Jun, [facility] [address] [id number] [place] [address] Jun, [facility] [address] [id number] [place] [address] Jun, [facility] [place] [facility] [address] [id number] [place] [address] Jun, [facility] [place] [facility] [address] [id number] [place] [address] Jun, [facility] [place] [facility] [address] [id number] [place] [address] Jun, [facility] [address] [id number] [place] [address] May, [facility] [place] [facility] [address] [id number] [place] [address] May, [facility] [place] [facility] [address] [facility] [id number] [place] [address] 26 Apr, 2012 [facility] [place] [facility] [address] [id number] [place] [address] Apr, 2012 [facility] [place] [facility] [address] [id number] [place] [address] Apr, 2012 [facility] [place] [facility] [address] [id number] [place] [address] Apr, 2012 [facility] [address] [facility] [id number] [place] [address]- [address] Apr, [facility] [place] [facility] [address] [id number] [place] [address] 08 Apr, 2012 [facility] [place] [facility] [address] [facility] [id number] [place] [address] 07 Apr, 2012 [facility] [place] [facility] [address] [facility] [id number] [place] [address] 07 Apr, 2012 [facility] [place] [facility] [address] [facility] [id number] [place] [address] 06 Apr, 2012 [facility] [place] [facility] [address] [facility] [id number] [place] [address] Apr, 2012 [facility] [place] [facility] [address] [id number] [place] [address] Apr, 2012 [facility] [place] [facility] [address] [facility] [id number] [place] [address] Mar, [facility] [place] [facility] [address] [id number] [place] [address] Mar, [facility] [place] [facility] [address] [id number] [place] [address] Mar, [facility] [address] [id number] [place] [address] Mar, [facility] [address] [id number] [place] [address] Mar, [facility] [address] [id number] [place] [address] Mar, [facility] [address] [id number] [place] [address] Mar, [facility] [address] [id number] [place] [address] Mar, [facility] [address] [id number] [place] [address] Mar, [facility] [address] [id number] [place] [address] Mar, [facility] [address] [id number] [place] [address] Mar, [facility] [address] [id number] [place] [address] Mar, [facility] [address] [id number] [place] [address] Mar, [facility] [address] [id number] [place] [address] Feb, [facility] [address] [id number] [place] [address] Feb, [facility] [address] [id number] [place] [address] Feb, [facility] [address] [id number] [place] [address] Feb, [facility] [address] [id number] [place] [address] Feb, [facility] [place] [facility] [address] [id number] [place] [address]- [address] Feb, [facility] [place] [facility] [address] [id number] [place] [address] Feb, [facility] [place] [facility] [address] [id number] [place] [address] Feb, [facility] [place] [facility] [address] [id number] [place] [address] Feb, [facility] [place] [facility] [address] [id number] [place] [address]275 Feb, [facility] [place] [facility] [address] [id number] [place] [address] 0206 Feb, [facility] [place] [facility] [address] [id number] [place] [address] Feb, [facility] [place] [facility] [address] [id number] [place] [address] 7[address] Feb, [facility] [place] [facility] [address] [id number] [place] [address] 2176 Feb, [facility] [place] [facility] [address] [id number] [place] [address] 2104 Feb, [facility] [place] [facility] [address] [id number] [place] [address] 0661 Jan, [facility] [place] [facility] [address] [id number] [place] [address] 7161 Jan, [facility] [place] [facility] [address] [id number] [place] [address] Jan, [facility] [place] [facility] [address] [id number] [place] [address] 5879 Jan, [facility] [place] [facility] [address] [id number] [place] [address] 9773 Dec, [facility] [place] [facility] [address] [id number] [place] [address] 7861 29 Dec, 2011 [facility] [place] [facility] [address] [id number] [place] [address]205 Dec, 2011 [facility] [place] [facility] [address] [id number] [place] [address] 5146 Dec, 2011 [facility] [place] [facility] [address] [id number] [place] [address]- 1193 Dec, 2011 [facility] [place] [facility] [address] [id number] [place] [address]- 9645 Dec, 2011 [facility] [place] [facility] [address] [id number] [place] [address] 9875 Dec, 2011 [facility] [place] [facility] [address] [id number] [place] [address]- 1173 Dec, 2011 [facility] [place] [facility] [address] [id number] [place] [address] 4095 Dec, [facility] [address] [id number] [place] [address] 1803 04 Dec, 2011 [facility] [place] [facility] [address] [id number] [place] [address] 8070 03 Dec, 2011 [facility] [place] [facility] [address] [id number] [place] [address]123 25 Sep, 2011 [facility] [place] [facility] [address] [id number] [place] [address]- 2540 24 Sep, 2011 [facility] [place] [facility] [address] [id number] [place] [address]- 254 20 Sep, 2011 [facility] [place] [facility] [address] [id number] [place] [address]- 2546 19 Sep, 2011 [facility] [place] [facility] [address] [id number] [place] [address]- 2546 17 Sep, 2011 [facility] [place] [facility] [address] [id number] [place] [address]- 9377 16 Sep, 2011 [facility] [place] [facility] [address] [id number] [place] [address] 1839 14 Sep, 2011 [facility] [place] [facility] [address] [id number] [place] [address] 5036 13 Sep, 2011 [facility] [place] [facility] [address] [id number] [place] [address]- 3547 12 Sep, 2011 [facility] [place] [facility] [address] [id number] [place] [address] 4715 07 Sep, 2011 [facility] [place] [facility] [address] [id number] [place] [address] 1892 06 Sep, 2011 [facility] [place] [facility] [address] [id number] [place] [address]- 1382 06 Sep, 2011 [facility] [place] [facility] [address] [id number] [place] [address] 0015 05 Nov, 2011 [facility] [place] [facility] [address] [id number] [place] [address] 5274 29 Oct, 2011 [facility] [place] [facility] [address] [id number] [place] [address] 6146 29 Oct, 2011 [facility] [place] [facility] [address] [id number] [place] [address] 8722 28 Oct, 2011 [facility] [place] [facility] [address] [id number] [place] [address]- 8684 28 Oct, 2011 [facility] [place] [facility] [address] [id number] [place] [address] 3879 23 Oct, 2011 [facility] [place] [facility] [address] [id number] [place] [address]- 7425 Oct, [facility] [place] [facility] [address] [id number] [place] [address] 1053 Oct, [facility] [place] [facility] [address] [id number] [place] [address]- 5204 16 Oct, 2011 [facility] [place] [facility] [address] [id number] [place] [address]- 8993 Oct, [facility] [address] [id number] [place] [address]- 6391 Oct, [facility] [place] [facility] [address] [id number] [place] [address]- 1332 Oct, [facility] [place] [facility] [address] [id number] [place] [address]- 6586 Sep, [facility] [place] [facility] [address] [id number] [place] [address]- 4094 Sep, [facility] [place] [facility] [address] [id number] [place] [address]- 9181 Sep, [facility] [place] [facility] [address] [id number] [place] [address]- 5241 Sep, [facility] [address] [id number] [place] [address] 3309 Sep, [facility] [place] [facility] [address] [id number] [place] [address]- 3754 Sep, [facility] [place] [facility] [address] [id number] [place] [address] 6012 Aug, [facility] [place] [facility] [address] [id number] [place] [address]- 4354 July, [facility] [place] [facility] [address] [id number] [place] [address]- 0911 July, [facility] [place] [facility] [address] [id number] [place] [address] 5112 Jun, [facility] [place] [facility] [address] [id number] [place] [address]- 5596 Jun, [facility] [place] [facility] [address] [id number] [place] [address]- 9124 Jun, [facility] [place] [facility] [address] [id number] [place] [address]- 4859 Jun, [facility] [place] [facility] [address] [id number] [place] [address]- 6344 10 Jun, 2011 [facility] [place] [facility] [address] [id number] [place] [address]- 9684 10 Jun, 2011 [facility] [place] [facility] [address] [id number] [place] [address]- 8066 09 Jun, 2011 [facility] [place] [facility] [address] [id number] [place] [address]- 4238 08 Jun, 2011 [facility] [place] [facility] [address] [id number] [place] [address]- 0104 Jun, [facility] [place] [facility] [address] [id number] [place] [address]- 2917 Jun, [facility] [place] [facility] [address] [id number] [place] [address]- 6327 Jun, [facility] [place] [facility] [address] [id number] [place] [address]- 2560 May, [facility] [place] [facility] [address] [id number] [place] [address]- 2581 16 May, 2011 [facility] [place] [facility] [address] [id number] [place] [address]- 2062 14 May, 2011 [facility] [place] [facility] [address] [id number] [place] [address]- 9130 06 May, 2011 [facility] [place] [facility] [address] [id number] [place] [address]- 8804 Apr, [facility] [place] [facility] [address] [id number] [place] [address]- 0912 28 Apr, 2011 [facility] [place] [facility] [address] [id number] [place] [address]- 4851 27 Apr, 2011 [facility] [place] [facility] [address] [id number] [place] [address]- 6538 23 Apr, 2011 [facility] [place] [facility] [address] [id number] [place] [address]- 4461 Apr, [facility] [address] [id number] [place] [address]- 2160 Apr, [facility] [address] [id number] [place] [address]- 2757 Apr, [facility] [address] [id number] [place] [address]- 1362 Apr, [facility] [address] [id number] [place] [address]- 4613 Mar, [facility] [address] [id number] [place] [address]- 6366 Mar, [facility] [address] [id number] [place] [address]- 3868 Mar, [facility] [address] [id number] [place] [address]- 1654 Mar, [facility] [address] [id number] [place] [address]- 1458 Mar, [facility] [address] [id number] [place] [address]- 3901 Mar, [facility] [address] [id number] [place] [address]- 4250 Mar, [facility] [address] [id number] [place] [address]- 1347 Mar, [facility] [place] [facility] [address] [id number] [place] [address]- 6969 Mar, [facility] [place] [facility] [address] [id number] [place] [address]- 6374 Mar, [facility] [place] [facility] [address] [id number] [place] [address]- 8785 Mar, [facility] [address] [id number] [place] [address]- 2404 Mar, [facility] [place] [facility] [address] [id number] [place] [address]- 4270 Mar, [facility] [place] [facility] [address] [id number] [place] [address]- 2115 Mar, [facility] [place] [facility] [address] [id number] [place] [address]- 4785 Mar, [facility] [place] [facility] [address] [id number] [place] [address]- 7594 Mar, [facility] [place] [facility] [address] [id number] [place] [address]- 7398 Feb, [facility] [place] [facility] [address] [id number] [place] [address]- 4252 Feb, [facility] [place] [facility] [address] [id number] [place] [address]- 9646 Feb, [facility] [place] [facility] [address] [id number] [place] [address]- 4589 Jan, [facility] [place] [facility] [address] [id number] [place] [address]- 0792 Jan, [facility] [place] [facility] [address] [id number] [place] [address]- 9125 Jan, [facility] [place] [facility] [address] [id number] [place] [address]- 0017 Dec, [facility] [place] [facility] [address] [id number] [place] [address]- 6796 Dec, [facility] [place] [facility] [address] [id number] [place] [address]- 1033 Nov, [facility] [place] [facility] [address] [id number] [place] [address]- 9507 Oct, [facility] [place] [facility] [address] [id number] [place] [address]- 3429 Oct, [facility] [place] [facility] [address] [id number] [place] [address]- 6364 Oct, [facility] [address] [facility] [id number] [place] [address]- 2546 Sep, [facility] [address] [facility] [id number] [place] [address]- 2546 Apr, [facility] [address] [facility] [id number] [place] [address]- 2546 Feb, [facility] [address] [facility] [id number] [place] [address]- 2546 Jan, IMMUNIZATIONS No Known Immunizations SOCIAL HISTORY Never Assessed REASON FOR VISIT EMR-[facility] PLAN OF CARE VITAL SIGNS MEDICATIONS No [...] Benzos OD, pneumonia MRSA, MAYRA, Hypokalemia-- [facility] 12/20/2015 Hospitalization History COPD exacerbation, Asthma-[facility] 09/21/16 Hospitalization History COPD-[facility] 12/30/2016 Hospitalization History [facility] and dagoberto for inpatient-last around 2006 or so. Hospitalization History [facility] for COPD x2 Mar 2017 Hospitalization History Upper GI bleed at apr 2017 Hospitalization History [facility]- COPD Exacerbation, diarrhea 05/23/2017 Hospitalization History COPD exacerbation-[facility] 06/13/17 Hospitalization History CHF 09/09/2017 Hospitalization History COPD-UTI--[facility] 11/2017
--- OUTSIDE RECORDS SUMMARY | 2018-06-30 11:40 | XMS REPORT ---
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 Active Problem TMJ (sprain of temporomandibular joint) S03.4XXA Active 00195793 Problem Migraine G43.909 Active 15148434 Problem Memory loss R41.3 Active 78826446 Problem Chronic constipation K59.09 Active 777126283 Problem Bipolar disorder with depression F31.30 Active 54941548 Problem Bipolar disorder, unspecified F31.9 Active 89350421 Problem Migraine without aura and without status migrainosus, not intractable G43.009 Active 898084328 Problem Chronic bronchitis, unspecified chronic bronchitis type J42 Active 82149608 Problem Methamphetamine use disorder, moderate, 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 Active 87099865 Problem Acute on chronic systolic congestive heart failure I50.23 Active 326477321 Problem Other emphysema J43.8 Active 69596410 Problem COPD exacerbation J44.1 Active 165278473 Problem Generalized anxiety disorder F41.1 Active 98320394 Problem Examination of eyes and vision V72.0 Active 134177178 Problem Diabetes E11.9 Active 905507110 Problem Intractable cyclical vomiting with nausea G43.A1 Active 09194581 Problem Anxiety F41.9 Active 58337662 Problem Chronic obstructive pulmonary disease, unspecified COPD type J44.9 Active 49152459 ALLERGIES No Information ENCOUNTERS Encounter Location Date Diagnosis [place] [id number] [address] May, Chronic obstructive pulmonary disease with acute exacerbation J44.1 [facility] [address] [address] Apr, [place] [address] [id number] [place] [address] 16807- 7363 Apr, [facility] [id number] [place] [address] 85104- 2001 Feb, Diabetes E11.9 ; Chronic obstructive pulmonary disease with (acute) exacerbation J44.1 and Encounter for immunization Z23 [facility] [address] [id number] [place] [address] 55963- 2125 Jan, COPD exacerbation J44.1 [facility] [id number] [place] [address] 38664- 5261 Jan, Dental abscess K04.7 [facility] [address] [address]- 2312 Jan, COPD exacerbation J44.1 and Acute on chronic systolic congestive heart failure I50.23 [facility] [id number] [place] [address] 20216- 5716 Dec, [facility] [id number] [place] [address] 86573- 4144 Dec, [facility] [id number] [place] [address] 90709- 6552 Nov, [facility] [id number] [place] [address] 90894- 4633 Nov, COPD with exacerbation J44.1 and Urinary tract infection without hematuria, site unspecified N39.0 [facility] [id number] [place] [address] 71960- 6610 Nov, Chronic obstructive pulmonary disease, unspecified COPD type J44.9 [facility] [id number] [place] [address] 73938- 6256 Oct, [facility] [id number] [place] [address] 52342- 6016 Oct, [facility] [id number] [place] [address] 91230- 3377 Oct, [facility] [address] [facility] [id number] [address] Oct, [facility] [id number] [address] 99[address] Oct, Thrush B37.0 [facility] [address] [address] 9564 Sep, COPD with exacerbation J44.1 and Anxiety F41.9 [facility] [address] [address] 7618 Sep, [facility] [address] [address] 0047 Sep, [facility] [address] [address]- 5910 Sep, [facility] [address] [address] 6405 Sep, Acute congestive heart failure, unspecified heart failure type I50.9 and Anxiety disorder, unspecified F41.9 [facility] [address] [address]- 1335 Sep, Heart failure, unspecified HF chronicity, unspecified heart failure type I50.9 [facility] [id number] [address]- 2566 Sep, [facility] [address] [address] 4318 Aug, Chronic obstructive pulmonary disease with acute exacerbation J44.1 [facility] [address] [place] [id number] [address] 2945 Aug, [facility] [address] [address]- 0522 Aug, [facility] [address] [address]- 3457 July, [facility] [address] [id number] [place] [address] 04732- 0126 July, [facility] [address] [id number] [place] [address] 76395- 4168 July, Diabetes E11.9 and Chronic obstructive pulmonary disease with acute exacerbation J44.1 [facility] [address] [id number] [place] [address] 99724- 2584 Jun, Chronic obstructive pulmonary disease with acute exacerbation J44.1 ; Diabetes E11.9 and Tobacco abuse Z72.0 [facility] [address] [id number] [place] [address] 15653- 0431 Jun, [facility] [address] 69762- 5856 Jun, [facility] [address] [id number] [place] [address] 22091- 4128 May, [facility] [address] 47188- 3256 May, [facility] [address] [id number] [place] [address] 29847 -6659 17 May, 2017 [facility] [address] [id number] [place] [address] 31365- 2655 16 May, 2017 [facility] [address] [id number] [place] [address] 14074- 6023 15 May, 2017 [facility] [address] [id number] [place] [address] 04408- 1675 14 May, 2017 Diarrhea, unspecified type R19.7 and Intractable cyclical vomiting with nausea G43.A1 [facility] [address] [id number] [place] [address] 05142- 2196 May, [facility] [address] [id number] [place] [address] 18573- 6995 05 May, 2017 [facility] [address] [id number] [place] [address] 40202- 1535 28 Apr, 2017 COPD exacerbation J44.1 ; Esophageal candidiasis B37.81 ; Other acute gastritis with hemorrhage K29.01 and Acute posthemorrhagic anemia D62 [facility] [address] 36526- 6080 Apr, Viral illness B34.9 and COPD exacerbation J44.1 [facility] [address] 64025 -3679 Apr, Shortness of breath R06.02 and Pneumonia of both lower lobes due to infectious organism J18.9 [facility] [address] 87096 -4050 Mar, COPD with acute exacerbation J44.1 [place] [address] 88970- 8782 Mar, Chronic obstructive pulmonary disease with acute exacerbation J44.1 and Diabetes E11.9 [place] [address] 73729- 6739 Mar, [facility] [address] 74740- 2219 Mar, 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 ; Major depressive disorder, recurrent, moderate F33.1 ; Anxiety disorder, unspecified F41.9 and Tobacco abuse Z72.0 [place] [address] [place] [id number] [place] [address] 62417- 9430 Jan, Major depressive disorder, recurrent, moderate F33.1 [place] [address] 41451- 0365 Jan, [place] [address] [place] [id number] [place] [address] 02815- 0596 Jan, [place] [address] 21895- 1974 Jan, Major depressive disorder, recurrent, moderate F33.1 [place] [address] 29793- 1147 Jan, Major depressive disorder, recurrent, moderate F33.1 ; Anxiety disorder, unspecified F41.9 ; Methamphetamine use disorder, moderate, 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 and Tobacco abuse Z72.0 [place] [address] 46088- 7048 Jan, [address] 32069- 5576 Jan, Chronic obstructive pulmonary disease with acute exacerbation J44.1 and Diabetes E11.9 [place] [id number] [place] [address] 17515- 6040 Jan, [place] [address] [place] [id number] [place] [address] 41429- 8093 Jan, [address] 05193- 3243 Dec, Acute respiratory failure with hypoxia J96.01 ; Chronic bronchitis, unspecified chronic bronchitis type J42 and Tobacco use Z72.[address] 55645- 4515 Dec, [facility] [address] [id number] Nov, Dental caries K02.9 and Dental examination Z01.20 [facility] [address] [place] [id number] [place] [address] 28448- 6997 Nov, Major depressive disorder, recurrent, moderate F33.1 ; Anxiety disorder, unspecified F41.9 and 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 [facility] [address] [id number] [place] [address] [id number] Oct, Dental examination Z01.20 [facility] [address] [place] [id number] [place] [address] 35025- 8616 Oct, [facility] [address] [id number] [place] [address] 58519- 7952 Oct, Diabetes E11.9 and Thrush B37.0 [facility] [address] [place] [address] [id number] [place] [address] 11181- 4039 Oct, [facility] [address] [id number] [place] [address] 84915- 9547 Oct, [facility] [address] [place] [id number] [place] [address] 48620- 7820 Oct, [facility] [id number] [place] [address] 74205- 5479 Sep, Major depressive disorder, recurrent, moderate F33.1 ; Anxiety disorder, unspecified F41.9 and Bipolar disorder, unspecified F31.9 [facility] [id number] [place] [address] 63751- 6497 Sep, Acute exacerbation of chronic obstructive pulmonary disease (COPD) J44.1 and Migraine G43.909 [facility] [address] [place] [id number] [place] [address] 00090- 2911 Sep, [facility] [address] [place] [id number] [place] [address] [id number] Sep, [facility] [id number] [place] [address] 07269- 8300 Sep, Acute exacerbation of chronic obstructive pulmonary disease (COPD) J44.1 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 [facility] [address] [place] [id number] [place] [address] 75121- 8491 19 Aug, 2016 Wheezing R06.2 ; Non morbid obesity due to excess calories E66.09 ; Migraine without aura and without status migrainosus, not intractable G43.009 and Tobacco abuse Z72.0 [facility] [id number] [place] [address] [id number] 14 Aug, 2016 Encounter for dental examination Z01.20 [facility] [id number] [place] [address] 55542- 4678 02 Aug, 2016 Major depressive disorder, recurrent, moderate F33.1 ; Anxiety disorder, unspecified F41.9 and 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 [facility] [id number] [place] [address] 96343- 5968 July, [facility] [address] [place] [id number] [place] [address] 17722- 7932 July, [facility] [address] [place] [id number] [place] [address] 21236- 8132 July, [facility] [address] [place] [id number] [place] [address] 96754- 0964 July, Diabetes E11.9 [facility] [address] [place] [id number] [place] [address] 28852- 7559 Jun, Major depressive disorder, recurrent, moderate F33.1 [facility] [address] [id number] [place] [address] 98830- 5422 Jun, Major depressive disorder, recurrent, moderate F33.1 ; 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 ; Generalized anxiety disorder F41.1 and Bipolar disorder, unspecified F31.9 [facility] [address] [place] [id number] [place] [address] 68221- 6350 Jun, Diabetes E11.9 ; Migraine G43.909 ; Thrush B37.0 and Wheezing R06.2 [facility] [address] [id number] Jun, Dental examination Z01.20 [facility] [address] 53483- 4565 Jun, [facility] [address] 74006- 5604 Jun, Major depressive disorder, recurrent, moderate F33.1 ; Anxiety disorder, unspecified F41.9 and 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 [facility] [address] [id number] [place] [address] 35313- 3155 Jun, [facility] [address] [id number] [place] [address] 74204- 8600 Jun, Wheezing R06.2 [facility] [address] [id number] Jun, Dental caries K02.9 [facility] [address] 95535- 5397 Jun, Major depressive disorder, recurrent, moderate F33.1 ; Anxiety disorder, unspecified F41.9 and 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 [facility] [address] [id number] [place] [address] 06749- 6907 Jun, RLQ abdominal pain R10.31 ; Diabetes E11.9 ; Obesity, unspecified obesity severity, unspecified obesity type E66.9 ; Wheezing R06.2 and Abnormal urinalysis R82.90 [place] [address] [place] [address] [id number] [place] [address] 23802- 4542 May, [place] [address] [place] [id number] [place] [address] 40005- 2198 May, Well woman exam Z01.419 ; Breast cancer screening Z12.39 ; Cervical cancer screening Z12.4 ; Urinary frequency R35.0 ; Edema, unspecified type R60.9 and Chronic constipation K59.09 [place] [address] [place] [address] [id number] [place] [address] 69347- 6719 May, Major depressive disorder, recurrent, moderate F33.1 ; Anxiety disorder, unspecified F41.9 and 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 [facility] [id number] [place] [address] [id number] May, Dental examination Z01.20 [place] [address] [place] [id number] [place] [address] 98634- 7071 May, [place] [address] [place] [address] [id number] [place] [address] 42443- 3927 May, [place] [address] [place] [id number] [place] [address] 81376- 0385 May, Chronic constipation K59.09 [place] [address] [place] [id number] [place] [address] 65594- 9350 Apr, [place] [address] [place] [id number] [place] [address] 94258- 7944 Apr, Major depressive disorder, recurrent, moderate F33.1 ; Anxiety disorder, unspecified F41.9 and 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 [place] [address] [place] [address]- 0036 02 Apr, 2016 [place] [address] [place] [id number] [place] [address] 70083- 2062 Mar, Major depressive disorder, recurrent, moderate F33.1 [place] [address] [place] [id number] [place] [address] 93764- 5822 Mar, Major depressive disorder, recurrent, moderate F33.1 ; Generalized anxiety disorder F41.1 and Bipolar I disorder, most recent episode depressed with anxious distress F31.30 [place] [address] [place] [id number] [place] [address] 58584- 6139 Mar, Diabetes E11.9 ; Non morbid obesity due to excess calories E66.09 ; Breast cancer screening Z12.39 and Encounter for immunization Z23 [place] [address] [place] [address] [id number] [place] [address] 31846- 3728 Mar, Major depressive disorder, recurrent, moderate F33.1 ; Anxiety disorder, unspecified F41.9 and 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 [place] [address] [place] [address] 66713- 7128 Mar, [place] [address] [address] [id number] [place] [address] 05568- 4370 Feb, Major depressive disorder, recurrent, moderate F33.1 ; Anxiety disorder, unspecified F41.9 and 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 [place] [address] [place] [address] 09881- 5405 Feb, [place] [address] [place] [address] 09654- 9746 Feb, [place] [address] [place] [address] [id number] [place] [address] 51425- 7409 Jan, Major depressive disorder, recurrent, moderate F33.1 ; Generalized anxiety disorder F41.1 and Bipolar disorder, current episode depressed, severe, without psychotic features F31.4 [place] [address] [address]- 6792 Jan, Major depressive disorder, recurrent, moderate F33.1 ; Anxiety disorder, unspecified F41.9 and 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 [place] [address] [address]- 5253 Jan, Bronchitis J40 [place] [address] [place] [id number] [place] [address] 52580- 8362 Jan, [place] [id number] [place] [address] 63012- 1320 Jan, [place] [address] [address] [id number] [place] [address] 02417- 2302 Jan, Elbow injury, right, initial encounter S59.901A ; Multiple contusions T14.8 and Cervical strain, acute, initial encounter S16.1XXA [place] [id number] [place] [address] 65008- 3419 Dec, Major depressive disorder, recurrent, moderate F33.1 ; Generalized anxiety disorder F41.1 and Bipolar disorder with depression F31.30 [place] [id number] [place] [address] 81750- 6218 Dec, [place] [address] [address]- 3329 Dec, [place] [address] [address]- 4008 Dec, [place] [id number] [place] [address] 66933- 8010 Dec, [place] [id number] [place] [address] 96225- 5807 Dec, Yeast infection B37.9 [place] [address] [place] [id number] [address]- 8981 Dec, Pneumonia of both lungs due to methicillin resistant Staphylococcus aureus (MRSA), unspecified part of lung J15.212 and Benzodiazepine overdose, accidental or unintentional, subsequent encounter T42.4X1D [facility] [address] [id number] [place] [address] 20461- 8330 Dec, [facility] [address] [id number] [place] [address]- 9440 Dec, [place] [address] 59865- 2970 Dec, Knee pain, left M25.562 and Edema, unspecified type R60.9 [place] [address] [address] [id number] [place] [address] 80583- 7276 Dec, [place] [address] [address] [id number] [place] [address] 51619- 2611 Dec, Anxiety disorder, unspecified F41.9 and Bipolar disorder, unspecified F31.9 [place] [address] [id number] [place] [address] 54426- 7458 Nov, Major depressive disorder, recurrent, moderate F33.1 ; Anxiety disorder, unspecified F41.9 and 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 [place] [address] [id number] [place] [address] 79161- 8982 Nov, [facility] [address] [id number] [place] [address] 17935- 3911 Nov, Migraine without aura and without status migrainosus, not intractable G43.009 [place] [id number] [place] [address] 57565- 4737 Nov, Migraine G43.909 [facility] [facility] [address] [id number] [place] [address] 59445- 6810 Nov, [facility] [address] [id number] [place] [address] 86171- 6938 Nov, Major depressive disorder, recurrent, moderate F33.1 ; Anxiety disorder, unspecified F41.9 and 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 [place] [id number] [place] [address] 29104- 2624 Oct, Chronic constipation K59.09 and Obesity, unspecified obesity severity, unspecified obesity type E66.9 [place] [address] [id number] [place] [address] 35123- 0928 Oct, Obesity, unspecified obesity severity, unspecified obesity type E66.9 ; Chronic constipation K59.09 and Anxiety disorder, unspecified F41.9 [place] [address] [id number] [place] [address] 13840- 8021 Oct, [place] [address] 07667- 3894 Sep, Diabetes E11.9 ; Edema, unspecified type R60.9 ; Varicose vein of leg I83.90 and Obesity, unspecified obesity severity, unspecified obesity type E66.9 [place] [address] [id number] [place] [address] 18365- 1107 Sep, Edema, unspecified type R60.9 ; Diabetes E11.9 and Knee pain , left M25.562 [facility] [facility] [address] [id number] [place] [address] 74708- 0100 Sep, [facility] [address] [id number] [place] [address] 09719- 1458 Sep, [facility] [address] [id number] [place] [address] 51893- 9834 Sep, Major depressive disorder, recurrent, moderate F33.1 ; Generalized anxiety disorder F41.1 and Bipolar disorder, unspecified F31.9 [place] [id number] [place] [address] 43844- 8757 Aug, Chondromalacia of left knee M94.262 [place] [id number] [place] [address] 78499- 4013 Aug, Major depressive disorder, recurrent, moderate F33.1 ; Anxiety disorder, unspecified F41.9 and 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 [facility] [address] [address]- 4687 15 Aug, 2015 [facility] [id number] [place] [id number] 06 Aug, 2015 Osteoarthritis of left knee M17.9 [facility] [address] [id number] [place] [id number] [id number] 02 Aug, 2015 [facility] [id number] [place] [id number]- [address] July, Major depressive disorder, recurrent, moderate F33.1 ; Anxiety disorder, unspecified F41.9 and 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 [facility] [id number] [place] [address] 11350- 1659 July, [facility] [id number] [place] [address] 91153- 4799 July, Chronic constipation K59.09 [facility] [id number] [place] [address] 68441- 9591 Jun, [facility] [id number] [place] [address] 36035- 2027 15 Jun, 2015 [facility] [address] [address] 8732 14 Jun, 2015 Osteoarthritis of left knee M17.9 [facility] [address] [address] 7146 Jun, [facility] [id number] [place] [address] 60210- 2480 Jun, Generalized anxiety disorder F41.1 ; Bipolar disorder, unspecified F31.9 and Major depressive disorder, recurrent, moderate F33.1 [facility] [address] [address] 9878 07 Jun, 2015 Migraine G43.909 [facility] [id number] [place] [address] 88909- 5872 Jun, Left knee pain M25.562 ; Chronic constipation K59.09 ; Dry mouth R68.2 ; Yeast vaginitis B37.3 and Memory loss R41.3 [facility] [id number] [place] [address] 63908- 3790 Jun, [facility] [address] 33572- 5615 May, [facility] [address] 07174- 3307 May, [facility] [address] 19238- 4901 May, [facility] [address] 61748- 2976 May, [facility] [address] 44061- 0496 May, Acute bronchitis with COPD J44.0 ; Knee pain, left M25.562 and Encounter for tobacco use cessation counseling Z71.6 [facility] [address] 33150- 9736 May, [facility] [address] 61499- 0230 Apr, Diabetes E11.9 ; TMJ (sprain of temporomandibular joint) S03.4XXA ; Tobacco abuse Z72.0 ; Migraine G43.909 and Anxiety F41.9 [facility] [id number] [place] [address] 39270- 5495 Apr, Generalized anxiety disorder F41.1 and Bipolar disorder, unspecified F31.9 [facility] [id number] [place] [address] 11340- 9363 Apr, Major depressive disorder, recurrent, moderate F33.1 ; Anxiety disorder, unspecified F41.9 and 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 [facility] [id number] [place] [address] 19041- 5166 04 Apr, 2015 [facility] [id number] [place] [address] 37067- 4736 Mar, [facility] [id number] [place] [address] 52015- 1216 Feb, [facility] [id number] [place] [address] 47967- 5608 Feb, Major depressive disorder, recurrent, moderate F33.1 ; Anxiety disorder, unspecified F41.9 and 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 [facility] [id number] [place] [address] 93442- 5011 Feb, [facility] [id number] [place] [address] 64353- 8087 Feb, Generalized anxiety disorder F41.1 and Bipolar disorder, unspecified F31.9 [facility] [id number] [place] [address] 82927- 3384 Jan, [facility] [id number] [place] [address] 75698- 6985 18 Jan, 2015 [facility] [id number] [place] [address] 35815- 2494 Jan, Bipolar disorder, unspecified F31.9 and Generalized anxiety disorder F41.1 [facility] [id number] [place] [address] 25973- 7902 Dec, [facility] [id number] [place] [address] 97518- 7360 14 Dec, 2014 Bipolar disorder, unspecified F31.9 and Generalized anxiety disorder F41.1 [facility] [id number] [place] [address] 42147- 5276 Dec, Generalized anxiety disorder F41.1 and Major depressive disorder, recurrent, moderate F33.1 [facility] [id number] [place] [address] 18920- 6819 Oct, Headache 784.0 ; Cough 786.2 ; Vomiting and diarrhea 787.03 and Dysuria 788.1 [facility] [id number] [place] [address] 66776- 7243 Aug, [facility] [address] 39850- 3893 Aug, Headache 784.0 and Shortness of breath 786.05 [facility] [id number] [place] [address] 58232- 9229 Aug, [facility] [id number] [place] [address] 30624- 2524 Aug, Migraine 346.90 [facility] [id number] [place] [address] 84026- 2872 Jun, [facility] [id number] [place] [address] 12779- 8891 Jun, [facility] [id number] [place] [address] 03765- 8285 May, [facility] [id number] [place] [address] 30733- 5094 May, [facility] [id number] [place] [address] 38839- 6916 May, [facility] [id number] [place] [address] 00509- 8343 May, [facility] [id number] [place] [address] 63948- 3123 May, [facility] [id number] [place] [address] 08084- 5731 May, [facility] [id number] [place] [address] 88265- 8243 Apr, [facility] [place] [facility] [address] [id number] [place] [address]- 4471 Apr, 2014 [facility] [place] [facility] [address] [id number] [place] [address]- 5350 Apr, 2014 [facility] [place] [facility] [address] [id number] [place] [address]- 7110 Apr, 2014 [facility] [place] [facility] [address] [id number] [place] [address]- 1227 Apr, [facility] [place] [facility] [address] [id number] [place] [address]- 4667 Mar, [facility] [place] [facility] [address] [id number] [place] [address]- 0064 Mar, [facility] [place] [facility] [address] [id number] [place] [address]- 9331 Mar, [facility] [place] [facility] [address] [id number] [place] [address]- 4472 Mar, [facility] [place] [facility] [address] [id number] [place] [address]- 5168 Feb, [facility] [place] [facility] [address] [id number] [place] [address]- 4604 Feb, [facility] [place] [facility] [address] [id number] [place] [address]- 0489 18 Feb, 2014 [facility] [place] [facility] [address] [id number] [place] [address]- 0373 18 Feb, 2014 [facility] [place] [facility] [address] [id number] [place] [address]- 8767 16 Feb, 2014 [facility] [place] [facility] [address] [id number] [place] [address]- 9183 16 Feb, 2014 [facility] [place] [facility] [address] [id number] [place] 5747 11 Feb, 2014 [facility] [place] [facility] [address] [id number] [place] [address]- 4058 Feb, [facility] [place] [facility] [address] [id number] [place] [address]- 9167 Feb, [facility] [place] [facility] [address] [id number] [place] [address]- 5325 Feb, [facility] [place] [facility] [address] [id number] [place] 0793 Feb, [facility] [place] [facility] [address] [id number] [place] [address]- 4059 Feb, [facility] [place] [facility] [address] [id number] [place] [address]- 4073 Jan, [facility] [place] [facility] [address] [id number] [place] [address]- 9588 Jan, [facility] [place] [facility] [address] [id number] [place] [address]- 2444 Dec, [facility] [place] [facility] [address] [id number] [place] [address]- 2531 Dec, [facility] [place] [facility] [address] [id number] [place] [address]- 3386 Dec, [facility] [place] [facility] [address] [id number] [place] [address]- 8284 Dec, [facility] [place] [facility] [address] [id number] [place] [address]- 1426 Dec, [facility] [place] [facility] [address] [id number] [place] [address]- 4590 Dec, [facility] [place] [facility] [address] [id number] [place] [address]- 7663 Sep, [facility] [place] [facility] [address] [id number] [place] 6775 Sep, [facility] [place] [facility] [address] [id number] [place] 6158 Sep, [facility] [place] [facility] [address] [id number] [place] [address]- 1258 Sep, 2013 [facility] [place] [facility] [address] [id number] [place] [address]- 5632 Sep, 2013 [facility] [place] [facility] [address] [id number] [place] [address]- 6163 Sep, 2013 [facility] [place] [facility] [address] [id number] [place] [address]- 8822 Sep, 2013 [facility] [place] [facility] [address] [id number] [place] [address]- 6546 Sep, 2013 [facility] [place] [facility] [address] [id number] [place] [address]- 6449 Sep, 2013 [facility] [place] [facility] [address] [id number] [place] [address]- 9334 Sep, 2013 [facility] [place] [facility] [address] [id number] [place] [address]- 9765 24 Aug, 2013 [facility] [place] [facility] [address] [id number] [place] [address]- 2590 Aug, [facility] [place] [facility] [address] [id number] [place] [address]- 6437 Aug, [facility] [place] [facility] [address] [id number] [place] [address]- 9930 Aug, [facility] [place] [facility] [address] [id number] [place] [address]- 7965 Aug, [facility] [place] [facility] [address] [id number] [place] [address]- 5693 14 Aug, 2013 [facility] [place] [facility] [address] [id number] [place] [address]- 3979 Aug, [facility] [place] [facility] [address] [id number] [place] [address]- 6273 Aug, [facility] [place] [facility] [address] [id number] [place] [address]- 5766 Aug, [facility] [place] [facility] [address] [id number] [place] [address]- 6700 Aug, [facility] [place] [facility] [address] [id number] [place] [address]- 5895 Aug, [facility] [place] [facility] [address] [id number] [place] [address]- 3254 Aug, [facility] [place] [facility] [address] [id number] [place] [address]- 5362 Aug, [facility] [place] [facility] [address] [id number] [place] [address]- 4705 July, [facility] [place] [facility] [address] [id number] [place] [address]- 9783 July, [facility] [place] [facility] [address] [id number] [place] [address]- 0595 July, [facility] [place] [facility] [address] [id number] [place] [address]- 3506 July, [facility] [place] [facility] [address] [id number] [place] [address]- 6981 July, [facility] [place] [facility] [address] [id number] [place] [address]- 2677 July, [facility] [place] [facility] [address] [id number] [place] [address]- 7831 July, [facility] [place] [facility] [address] [id number] [place] [address]- 3493 Jun, [facility] [place] [facility] [address] [id number] [place] [address]- 0692 Jun, [facility] [place] [facility] [address] [id number] [place] [address]- 6843 Jun, [facility] [place] [facility] [address] [id number] [place] [address]- 2862 Jun, [facility] [place] [facility] [address] [id number] [place] [address]- 5416 16 Jun, 2013 [facility] [place] [facility] [address] [id number] [place] [address]- 1903 08 Jun, 2013 [facility] [place] [facility] [address] [id number] [place] [address]- 7279 08 Jun, 2013 [facility] [place] [facility] [address] [id number] [place] [address]- 8914 17 May, 2013 [facility] [place] [facility] [address] [id number] [place] [address]- 7124 17 May, 2013 [facility] [place] [facility] [address] [id number] [place] [address]- 6366 14 May, 2013 [facility] [place] [facility] [address] [id number] [place] [address]- 2053 14 May, 2013 [facility] [place] [facility] [address] [id number] [place] [address]- 9081 13 May, 2013 [facility] [place] [facility] [address] [id number] [place] [address]- 7280 13 May, 2013 [facility] [place] [facility] [address] [id number] [place] [address]- 4149 10 May, 2013 [facility] [place] [facility] [address] [facility] [id number] [place] [address]- 8492 10 May, 2013 [facility] [place] [facility] [address] [id number] [place] [address]- 5395 07 May, 2013 [facility] [place] [facility] [address] [id number] [place] [address]- 6187 26 Apr, 2013 [facility] [place] [facility] [address] [id number] [place] [address]- 6342 26 Apr, 2013 [facility] [place] [facility] [address] [id number] [place] [address]- 4853 18 Apr, 2013 [facility] [place] [facility] [address] [id number] [place] [address]- 1707 Apr, [facility] [place] [facility] [address] [id number] [place] [address]- 3939 Apr, [facility] [place] [facility] [address] [id number] [place] [address]- 1887 Apr, [facility] [place] [facility] [address] [id number] [place] [address]- 5143 Apr, [facility] [place] [facility] [address] [id number] [place] [address]- 5850 Apr, [facility] [place] [facility] [address] [id number] [place] [address]- 5490 Apr, [facility] [place] [facility] [address] [id number] [place] [address]- 7918 Apr, [facility] [place] [facility] [address] [id number] [place] [address]- 7990 Mar, [facility] [place] [facility] [address] [id number] [place] [address]- 3385 Mar, [facility] [place] [facility] [address] [id number] [place] [address]- 2050 Mar, [facility] [place] [facility] [address] [id number] [place] [address]- 4380 Mar, [facility] [place] [facility] [address] [id number] [address]- 0915 Mar, [facility] [place] [facility] [address] [id number] [address]- 1557 Mar, [facility] [place] [facility] [address] [id number] [place] [address]- 6245 Mar, [facility] [place] [facility] [address] [id number] [address]- 0399 Mar, [facility] [place] [facility] [address] [id number] [place] [address]- 3614 Feb, [facility] [place] [facility] [address] [id number] [place] [address]- 9298 10 Feb, 2013 [facility] [place] [facility] [address] [id number] [place] [address]- 4527 18 Jan, 2013 [facility] [place] [facility] [address] [id number] [place] [address]- 0005 18 Jan, 2013 [facility] [place] [facility] [address] [id number] [place] [address]- 8611 15 Jan, 2013 [facility] [place] [facility] [address] [id number] [place] [address]- 4495 15 Jan, 2013 [facility] [place] [facility] [address] [id number] [place] [address]- 5169 Jan, [facility] [place] [facility] [address] [id number] [place] [address]- 9853 Jan, [facility] [place] [facility] [address] [facility] [id number] [place] [address]- 4200 Jan, [facility] [place] [facility] [address] [id number] [place] [address]- 3585 05 Jan, 2013 [facility] [place] [facility] [address] [id number] [place] [address]- 9689 Dec, [facility] [place] [facility] [address] [facility] [id number] [place] [address]- 1699 Dec, [facility] [place] [facility] [address] [id number] [place] [address]- 4851 10 Dec, 2012 [facility] [place] [facility] [address] [id number] [address]- 3684 20 Nov, 2012 [facility] [place] [facility] [address] [id number] [place] [address]- 0473 13 Nov, 2012 [facility] [place] [facility] [address] [facility] [id number] [place] [address]- 0158 12 Nov, 2012 [facility] [place] [facility] [address] [id number] [address]- 1741 Nov, [facility] [place] [facility] [address] [id number] [place] [address]- 4506 Nov, [facility] [place] [facility] [address] [id number] [place] [address]- 6273 Nov, [facility] [place] [facility] [address] [id number] [place] [address]- 1009 Oct, [facility] [place] [facility] [address] [id number] [place] [address]- 0173 Oct, [facility] [address] [id number] [place] [address]- 0042 Sep, [facility] [place] [facility] [address] [id number] [place] [address]- 5315 Sep, [facility] [address] [id number] [place] [address]- 7354 Sep, [facility] [address] [id number] [place] [address]- 8511 Sep, [facility] [place] [facility] [address] [id number] [place] [address]- 5745 Sep, [facility] [place] [facility] [address] [id number] [place] [address]- 6134 Sep, [facility] [place] [facility] [address] [id number] [place] [address]- 4230 Sep, [facility] [place] [facility] [address] [id number] [place] [address]- 9805 Aug, [facility] [place] [facility] [address] [id number] [place] [address]- 0131 Aug, [facility] [place] [facility] [address] [id number] [place] [address]- 5151 Aug, [facility] [place] [facility] [address] [id number] [place] [address]- 4423 Aug, [facility] [place] [facility] [address] [id number] [place] [address]- 2085 Aug, [facility] [address] [id number] [place] [address]- 3968 Aug, [facility] [address] [id number] [place] [address]- 0517 July, [facility] [address] [id number] [place] [address]- 2102 July, [facility] [address] [id number] [place] [address]- 9821 July, [facility] [address] [id number] [place] [address]- 3984 July, [facility] [address] [id number] [place] [address]- 5983 July, [facility] [address] [id number] [place] [address]- 7001 July, [facility] [address] [id number] [place] [address]- 1133 Jun, [facility] [place] [facility] [address] [id number] [place] [address]- 6775 Jun, [facility] [place] [facility] [address] [id number] [place] [address]- 5936 Jun, [facility] [place] [facility] [address] [id number] [place] [address]- 2167 Jun, [facility] [place] [facility] [address] [id number] [place] [address]- 6118 Jun, [facility] [place] [facility] [address] [id number] [place] [address]- 3537 Jun, [facility] [place] [facility] [address] [id number] [place] [address]- 0842 Jun, [facility] [place] [facility] [address] [id number] [place] [address]- 8[address] May, [facility] [place] [facility] [address] [id number] [place] [address] May, [facility] [address] [id number] [place] [address] Apr, 2012 [facility] [place] [facility] [address] [id number] [place] [address] Apr, [facility] [place] [facility] [address] [id number] [place] [address] Apr, 2012 [facility] [place] [facility] [address] [id number] [place] [address] Apr, [facility] [place] [facility] [address] [id number] [place] [address] Apr, [facility] [address] [facility] [id number] [place] [address] 08 Apr, 2012 [facility] [place] [facility] [address] [id number] [place] [address] Apr, [facility] [place] [facility] [address] [id number] [place] [address] Apr, [facility] [place] [facility] [address] [facility] [id number] [address] 06 Apr, 2012 [facility] [place] [facility] [address] [facility] [id number] [place] [address] Apr, [facility] [place] [facility] [address] [id number] [place] [address] Apr, [facility] [place] [facility] [address] [id number] [place] [address] Mar, [facility] [place] [facility] [address] [id number] [place] [address] Mar, [facility] [place] [facility] [address] [facility] [id number] [place] [address] Mar, [facility] [place] [facility] [address] [id number] [place] [address] Mar, [facility] [address] [id number] [place] [address] Mar, [facility] [address] [id number] [place] [address]- [address] Mar, [facility] [address] [id number] [place] [address] 15 Mar, 2012 [facility] [address] [id number] [place] [address] 15 Mar, 2012 [facility] [address] [id number] [place] [address]- [address] Mar, [facility] [address] [id number] [place] [address] Mar, [facility] [address] [id number] [place] [address] Mar, [facility] [address] [id number] [place] [address] Mar, [facility] [address] [id number] [place] [address] Mar, [facility] [address] [id number] [place] [address] Feb, [facility] [address] [id number] [place] [address] Feb, [facility] [place] [facility] [address] [id number] [place] [address] Feb, [facility] [place] [facility] [address] [id number] [place] [address] Feb, [facility] [place] [facility] [address] [id number] [place] [address]- [address] Feb, [facility] [address] [id number] [place] [address] Feb, [facility] [place] [facility] [address] [id number] [place] [address]- [address] Feb, [facility] [place] [facility] [address] [id number] [place] [address] Feb, [facility] [place] [facility] [address] [id number] [place] [address]- [address] Feb, [facility] [place] [facility] [address] [id number] [place] [address] Feb, [facility] [place] [facility] [address] [id number] [place] [address]- [address] Feb, [facility] [place] [facility] [address] [id number] [place] [address]- [address] Feb, [facility] [place] [facility] [address] [id number] [place] [address] Feb, [facility] [place] [facility] [address] [id number] [place] [address]- [address]26 Feb, [facility] [place] [facility] [address] [id number] [place] [address]- [address] Feb, [facility] [place] [facility] [address] [id number] [place] [address] Jan, [facility] [place] [facility] [address] [facility] [id number] [place] [address]- [address] Jan, [facility] [place] [facility] [address] [id number] [place] [address]- [address] Jan, [facility] [place] [facility] [address] [id number] [place] [address]- 85[address] Jan, [facility] [place] [facility] [address] [id number] [place] [address]- [address] Dec, [facility] [place] [facility] [address] [id number] [place] [address]- [address] Dec, [facility] [place] [facility] [address] [id number] [place] [address]- 7031 Dec, [facility] [place] [facility] [address] [id number] [place] [address]- [address] Dec, [facility] [place] [facility] [address] [id number] [place] [address]- 365[address] Dec, [facility] [place] [facility] [address] [id number] [place] [address]- 4696 Dec, [facility] [place] [facility] [address] [id number] [place] [address]- 3519 Dec, [facility] [place] [facility] [address] [id number] [place] [address]- [address] 16 Dec, 2011 [facility] [place] [facility] [address] [id number] [place] [address]- [address] Dec, [facility] [place] [facility] [address] [id number] [place] [address] 04 Dec, 2011 [facility] [place] [facility] [address] [id number] [place] [address] 03 Dec, 2011 [facility] [place] [facility] [address] [id number] [place] [address] 25 Sep2011 [facility] [place] [facility] [address] [id number] [place] [address]- 2668 24 Sep, 2011 [facility] [place] [facility] [address] [id number] [address] 20 Sep, 2011 [facility] [place] [facility] [address] [id number] [place] [address] 19 Sep, 2011 [facility] [place] [facility] [address] [id number] [place] [address] 17 Sep, 2011 [facility] [place] [facility] [address] [id number] [address] 16 Sep, 2011 [facility] [place] [facility] [address] [id number] [place] [address] 14 Sep, 2011 [facility] [place] [facility] [address] [id number] [place] [address] 1843 13 Nov, 2011 [facility] [place] [facility] [address] [id number] [place] [address] 12 Sep, 2011 [facility] [place] [facility] [address] [id number] [place] [address] 07 Nov, 2011 [facility] [place] [facility] [address] [id number] [place] [address] 9736 06 Sep, 2011 [facility] [place] [facility] [address] [id number] [place] [address] 2546 06 Nov, 2011 [facility] [place] [facility] [address] [id number] [place] [address] 2499 05 Nov, 2011 [facility] [place] [facility] [address] [id number] [place] [address] 0666 29 Oct, 2011 [facility] [place] [facility] [address] [id number] [place] [address] 7118 29 Oct, 2011 [facility] [place] [facility] [address] [id number] [place] [address] 2545 Oct, [facility] [place] [facility] [address] [id number] [place] [address]287 28 Oct, 2011 [facility] [place] [facility] [address] [id number] [place] [address]- 8097 23 Oct, 2011 [facility] [place] [facility] [address] [id number] [place] [address] 2546 Oct, [facility] [place] [facility] [address] [id number] [place] [address] 2543 20 Oct, 2011 [facility] [place] [facility] [address] [id number] [place] [address] 8876 16 Oct, 2011 [facility] [place] [facility] [address] [id number] [place] [address]- 2546 15 Oct, 2011 [facility] [place] [facility] [address] [id number] [place] [address]- 3317 13 Oct, 2011 [facility] [place] [facility] [address] [id number] [place] [address] 29[address] Oct, [facility] [place] [facility] [address] [id number] [place] [address]367 Sep, [facility] [place] [facility] [address] [id number] [place] [address]- 1726 Sep, [facility] [place] [facility] [address] [id number] [place] [address]- 4868 Sep, [facility] [place] [facility] [address] [id number] [place] [address]553 Sep, [facility] [place] [facility] [address] [id number] [place] [address]- 9682 Sep, [facility] [place] [facility] [address] [id number] [place] [address]- 2928 Sep, [facility] [place] [facility] [address] [id number] [place] [address] 3141 Aug, [facility] [place] [facility] [address] [id number] [place] [address] 4[address] July, [facility] [place] [facility] [address] [id number] [place] [address] 6[address] July, [facility] [place] [facility] [address] [id number] [place] [address] Jun, [facility] [place] [facility] [address] [id number] [place] [address]- 0736 Jun, [facility] [place] [facility] [address] [id number] [place] [address]- 9637 Jun, [facility] [place] [facility] [address] [id number] [place] [address]- 8768 Jun, [facility] [place] [facility] [address] [id number] [place] [address]- 6408 Jun, [facility] [place] [facility] [address] [id number] [place] [address]- 7873 10 Jun, 2011 [facility] [address] [id number] [place] [address]- 0204 09 Jun, 2011 [facility] [place] [facility] [address] [id number] [place] [address] 08 Jun, 2011 [facility] [place] [facility] [address] [facility] [id number] [place] [address]- [address]20 Jun, [facility] [place] [facility] [address] [id number] [place] [address]- 1003 Jun, [facility] [place] [facility] [address] [id number] [place] [address]- 7663 Jun, [facility] [place] [facility] [address] [facility] [id number] [place] [address]- 0873 19 May, 2011 [facility] [place] [facility] [address] [facility] [id number] [place] [address]- 1734 16 May, 2011 [facility] [place] [facility] [address] [id number] [place] [address]- 2027 14 May, 2011 [facility] [place] [facility] [address] [facility] [id number] [place] [address]- 6994 06 May, 2011 [facility] [place] [facility] [address] [facility] [id number] [place] [address]- 1246 28 Apr, 2011 [facility] [place] [facility] [address] [id number] [place] [address]- 0936 28 Apr, 2011 [facility] [place] [facility] [address] [facility] [id number] [place] [address]- 5262 27 Apr, 2011 [facility] [place] [facility] [address] [id number] [place] [address]- 1062 23 Apr, 2011 [facility] [place] [facility] [address] [id number] [place] [address]- 0631 23 Apr, 2011 [facility] [place] [facility] [address] [facility] [id number] [place] [address]- 0625 22 Apr, 2011 [facility] [place] [facility] [address] [id number] [place] [address] 2863 Apr, [facility] [address] [id number] [place] [address] 3241 Apr, [facility] [place] [facility] [address] [id number] [place] [address]- 2479 Mar, [facility] [address] [id number] [place] [address]- 5993 Mar, [facility] [address] [id number] [place] [address]- 5220 Mar, [facility] [address] [id number] [place] [address]- 1764 Mar, [facility] [address] [id number] [place] [address]- 7106 Mar, [facility] [address] [id number] [place] [address] 1976 Mar, [facility] [address] [id number] [place] [address]- 7242 Mar, [facility] [address] [id number] [place] [address]- 1163 Mar, [facility] [place] [facility] [address] [id number] [place] [address]- 8647 Mar, [facility] [address] [id number] [place] [address]- 8894 Mar, [facility] [place] [facility] [address] [id number] [place] [address]- 3042 Mar, [facility] [place] [facility] [address] [id number] [place] [address]- 3290 Mar, [facility] [place] [facility] [address] [id number] [place] [address]- 5375 Mar, [facility] [place] [facility] [address] [id number] [place] [address]- 9166 Mar, [facility] [place] [facility] [address] [id number] [place] [address]- 5390 Mar, [facility] [place] [facility] [address] [id number] [place] [address]- 2861 Mar, [facility] [place] [facility] [address] [id number] [place] [address]- 4834 Feb, [facility] [place] [facility] [address] [id number] [place] [address]- 5316 Feb, [facility] [place] [facility] [address] [id number] [place] [address]- 5501 Feb, [facility] [place] [facility] [address] [id number] [place] [address]- 0277 Jan, [facility] [place] [facility] [address] [id number] [place] [address]- 5282 Jan, [facility] [place] [facility] [address] [id number] [place] [address]- 9655 Jan, [facility] [place] [facility] [address] [id number] [place] [address]- 6641 Dec, [facility] [place] [facility] [address] [id number] [place] [address]- 0045 Dec, [facility] [place] [facility] [address] [id number] [place] [address]- 3480 Nov, [facility] [place] [facility] [address] [id number] [place] [address]- 2627 Oct, [facility] [place] [facility] [address] [id number] [place] [address]- 3979 Oct, [facility] [place] [facility] [address] [id number] [place] [address]- 9720 Oct, [facility] [place] [facility] [address] [id number] [place] [address]- 0746 Sep, [facility] [place] [facility] [address] [facility] [id number] [place] [address]- 2546 Apr, [facility] [address] [facility] [id number] [place] [address]- 2546 Feb, [facility] [address] [facility] [id number] [place] [address]- 2546 Jan, IMMUNIZATIONS No Known Immunizations SOCIAL HISTORY Never Assessed REASON FOR VISIT EMR-[facility] [place] [facility] PLAN OF CARE VITAL SIGNS MEDICATIONS [...] 2/2 Benzos OD, pneumonia MRSA, MAYRA, Hypokalemia-- [facility] 12/20/2015 Hospitalization History COPD exacerbation, Asthma-[facility] 09/21/16 Hospitalization History COPD-[facility] 12/30/2016 [facility] or so. Hospitalization History for COPD x2 Mar 2017 Hospitalization History Upper GI bleed at apr 2017 Hospitalization History [facility]- COPD Exacerbation, diarrhea 05/23/2017 Hospitalization History COPD exacerbation-[facility] 06/13/17 Hospitalization History CHF 09/09/2017 Hospitalization History COPD-UTI--[facility] 11/2017
--- OUTSIDE RECORDS SUMMARY | 2018-06-30 11:42 | XMS REPORT ---
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 Active Problem TMJ (sprain of temporomandibular joint) S03.4XXA Active 09008226 Problem Migraine G43.909 Active 07427731 Problem Memory loss R41.3 Active 78862294 Problem Chronic constipation K59.09 Active 161801325 Problem Bipolar disorder with depression F31.30 Active 86183902 Problem Bipolar disorder, unspecified F31.9 Active 02742541 Problem Migraine without aura and without status migrainosus, not intractable G43.009 Active 091089882 Problem Chronic bronchitis, unspecified chronic bronchitis type J42 Active 95455362 Problem Methamphetamine use disorder, moderate, 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 Active 11393638 Problem Acute on chronic systolic congestive heart failure I50.23 Active 906442321 Problem Other emphysema J43.8 Active 20556459 Problem COPD exacerbation J44.1 Active 562437402 Problem Generalized anxiety disorder F41.1 Active 14444623 Problem Examination of eyes and vision V72.0 Active 203733662 Problem Diabetes E11.9 Active 441463703 Problem Intractable cyclical vomiting with nausea G43.A1 Active 73268484 Problem Anxiety F41.9 Active 41082408 Problem Chronic obstructive pulmonary disease, unspecified COPD type J44.9 Active 68358180 ALLERGIES No Information ENCOUNTERS Encounter Location Date Diagnosis [place] [id number] [address] May, Chronic obstructive pulmonary disease with acute exacerbation J44.1 [facility] [address] [address] Apr, [place] [id number] [place] [address] 40029- 6997 Apr, [facility] [id number] [place] [address] 18220- 1630 Feb, Diabetes E11.9 ; Chronic obstructive pulmonary disease with (acute) exacerbation J44.1 and Encounter for immunization Z23 [facility] [id number] [place] [address] 11797- 9498 Jan, COPD exacerbation J44.1 [facility] [id number] [place] [address] 16894- 6751 Jan, Dental abscess K04.7 [facility] [address] 09863- 7188 Jan, COPD exacerbation J44.1 and Acute on chronic systolic congestive heart failure I50.23 [facility] [id number] [place] [address] 59493- 2424 Dec, [facility] [id number] [place] [address] 49097- 3759 Dec, [facility] [id number] [place] [address] 15072- 0501 Nov, [facility] [id number] [place] [address] 46967- 5113 Nov, COPD with exacerbation J44.1 and Urinary tract infection without hematuria, site unspecified N39.0 [facility] [id number] [place] [address] 78396- 7218 Nov, Chronic obstructive pulmonary disease, unspecified COPD type J44.9 [facility] [id number] [place] [address] 65146- 3145 Oct, [facility] [id number] [place] [address] 07860- 5848 Oct, [facility] [id number] [place] [address] 40170- 0379 Oct, [facility] [address] [facility] [id number] [address] Oct, [facility] [address] [place] [address] 8062 Oct, Thrush B37.0 [facility] [address] [address] 3388 Sep, COPD with exacerbation J44.1 and Anxiety F41.9 [facility] [address] [address]- 6929 Sep, [facility] [address] [address]- 3562 Sep, [facility] [address] [address]- 9473 Sep, [facility] [address] [address] 8281 Sep, Acute congestive heart failure, unspecified heart failure type I50.9 and Anxiety disorder, unspecified F41.9 [facility] [address] [address] 8165 Sep, Heart failure, unspecified HF chronicity, unspecified heart failure type I50.9 [facility] [address] [address]- 2721 Sep, [facility] [address] [address]- 0978 Aug, Chronic obstructive pulmonary disease with acute exacerbation J44.1 [facility] [address] [place] [id number] [place] [address] 0646 Aug, [facility] [address] [address] 3491 Aug, [facility] [address] [address] 1592 July, [facility] [id number] [place] [address] 24891- 1012 July, [facility] [id number] [place] [address] 66709- 8614 July, Diabetes E11.9 and Chronic obstructive pulmonary disease with acute exacerbation J44.1 [facility] [id number] [place] [address] 89371- 7780 Jun, Chronic obstructive pulmonary disease with acute exacerbation J44.1 ; Diabetes E11.9 and Tobacco abuse Z72.0 [facility] [id number] [place] [address] 08603- 0858 Jun, [facility] [address] 33310- 7054 Jun, [facility] [id number] [place] [address] 63261- 0674 May, [facility] [address] 00198- 7698 May, [facility] [id number] [place] [address] 43237 -5167 17 May, 2017 [facility] [id number] [place] [address] 23179- 7559 16 May, 2017 [facility] [id number] [place] [address] 39849- 1066 15 May, 2017 [facility] [id number] [place] [address] 84096- 4973 14 May, 2017 Diarrhea, unspecified type R19.7 and Intractable cyclical vomiting with nausea G43.A1 [facility] [id number] [place] [address] 90118- 3183 May, [facility] [id number] [place] [address] 69692- 8515 05 May, 2017 [facility] [id number] [place] [address] 69132- 8482 28 Apr, 2017 COPD exacerbation J44.1 ; Esophageal candidiasis B37.81 ; Other acute gastritis with hemorrhage K29.01 and Acute posthemorrhagic anemia D62 [facility] [address] 28106- 8971 Apr, Viral illness B34.9 and COPD exacerbation J44.1 [facility] [address] 43346 -5063 Apr, Shortness of breath R06.02 and Pneumonia of both lower lobes due to infectious organism J18.9 [facility] [address] 51704 -2720 Mar, COPD with acute exacerbation J44.1 [place] [address] 78968- 6507 Mar, Chronic obstructive pulmonary disease with acute exacerbation J44.1 and Diabetes E11.9 [place] [address] 58692- 9149 Mar, [facility] [address] 91535- 6709 Mar, [facility] [address] 77449 -9304 Mar, COPD exacerbation J44.1 [place] [address] 23418- 2789 Mar, [place] [address] 68218- 2517 Mar, Migraine G43.909 ; Hypokalemia E87.6 and Type 2 diabetes mellitus without complications E11.9 [place] [address] 28901- 9872 Feb, [place] [address] 08709- 0515 Feb, [facility] [address] 46815- 0785 Feb, Methamphetamine use disorder, moderate, 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 ; Major depressive disorder, recurrent, moderate F33.1 ; Anxiety disorder, unspecified F41.9 and Tobacco abuse Z72.0 [place] [id number] [place] [address] 13782- 6194 Jan, Major depressive disorder, recurrent, moderate F33.1 [place] [address] 53422- 9219 Jan, [place] [address] [id number] [place] [address] 35911- 4346 Jan, [place] [address] 79645- 1011 Jan, Major depressive disorder, recurrent, moderate F33.1 [place] [address] 05544- 5834 Jan, Major depressive disorder, recurrent, moderate F33.1 ; Anxiety disorder, unspecified F41.9 ; Methamphetamine use disorder, moderate, 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 and Tobacco abuse Z72.0 [place] [address] 40586- 1357 Jan, [address] 86720- 7393 Jan, Chronic obstructive pulmonary disease with acute exacerbation J44.1 and Diabetes E11.9 [place] [id number] [place] [address] 17460- 7743 Jan, [place] [address] [id number] [place] [address] 32281- 2151 Jan, [address] 38499- 7119 Dec, Acute respiratory failure with hypoxia J96.01 ; Chronic bronchitis, unspecified chronic bronchitis type J42 and Tobacco use Z72.[address] 05341- 5204 Dec, [facility] [address] [place] [id number] Nov, Dental caries K02.9 and Dental examination Z01.20 [facility] [id number] [place] [address] 97213- 2350 Nov, Major depressive disorder, recurrent, moderate F33.1 ; Anxiety disorder, unspecified F41.9 and 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 [facility] [address] [id number] [place] [address] [id number] Oct, Dental examination Z01.20 [facility] [id number] [place] [address] 37175- 5406 Oct, [facility] [id number] [place] [address] 58385- 8406 Oct, Diabetes E11.9 and Thrush B37.0 [facility] [id number] [place] [address] 54703- 8647 Oct, [facility] [id number] [place] [address] 46879- 8736 Oct, [facility] [id number] [place] [address] 07260- 0382 Oct, [facility] [id number] [place] [address] 09146- 8742 Sep, Major depressive disorder, recurrent, moderate F33.1 ; Anxiety disorder, unspecified F41.9 and Bipolar disorder, unspecified F31.9 [facility] [address] [place] [address] 75508- 4280 Sep, Acute exacerbation of chronic obstructive pulmonary disease (COPD) J44.1 and Migraine G43.909 [facility] [id number] [place] [address] 01207- 1241 Sep, [facility] [place] [id number] [place] [address] [id number] Sep, [facility] [id number] [place] [address] 57420- 7020 Sep, Acute exacerbation of chronic obstructive pulmonary disease (COPD) J44.1 [facility] [id number] [place] [address] 53995 -9503 Sep, Acute exacerbation of chronic obstructive pulmonary disease (COPD) J44.1 [facility] [id number] [place] [address] 14288- 2985 Aug, [facility] [id number] [place] [address] 95162- 7183 Aug, Major depressive disorder, recurrent, moderate F33.1 ; Anxiety disorder, unspecified F41.9 and 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 [facility] [id number] [place] [address] 53970- 0293 19 Aug, 2016 Wheezing R06.2 ; Non morbid obesity due to excess calories E66.09 ; Migraine without aura and without status migrainosus, not intractable G43.009 and Tobacco abuse Z72.0 [facility] [address] [place] [id number] [place] [address] [id number] 14 Aug, 2016 Encounter for dental examination Z01.20 [facility] [address] [place] [address] 12419- 6947 02 Aug, 2016 Major depressive disorder, recurrent, moderate F33.1 ; Anxiety disorder, unspecified F41.9 and 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 [facility] [address] [place] [address] 89926- 7660 July, [facility] [id number] [place] [address] 23192- 4903 July, [facility] [id number] [place] [address] 83632- 5386 July, [facility] [id number] [place] [address] 06911- 4109 July, Diabetes E11.9 [facility] [id number] [place] [address] 91306- 8100 Jun, Major depressive disorder, recurrent, moderate F33.1 [facility] [id number] [place] [address] 79416- 1735 Jun, Major depressive disorder, recurrent, moderate F33.1 ; Other 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 ; Generalized anxiety disorder F41.1 and Bipolar disorder, unspecified F31.9 [facility] [id number] [place] [address] 81505- 2827 Jun, Diabetes E11.9 ; Migraine G43.909 ; Thrush B37.0 and Wheezing R06.2 [facility] [address] [id number] Jun, Dental examination Z01.20 [facility] [address] 90556- 6790 Jun, [facility] [address] 83796- 1800 Jun, Major depressive disorder, recurrent, moderate F33.1 ; Anxiety disorder, unspecified F41.9 and 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 [facility] [id number] [place] [address] 30659- 5941 Jun, [facility] [id number] [place] [address] 63588- 0001 Jun, Wheezing R06.2 [facility] [address] [id number] Jun, Dental caries K02.9 [facility] [address] 15905- 0902 Jun, Major depressive disorder, recurrent, moderate F33.1 ; Anxiety disorder, unspecified F41.9 and 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 [facility] [id number] [place] [address] 07923- 1968 Jun, RLQ abdominal pain R10.31 ; Diabetes E11.9 ; Obesity, unspecified obesity severity, unspecified obesity type E66.9 ; Wheezing R06.2 and Abnormal urinalysis R82.90 [place] [id number] [place] [address] 22084- 0316 May, [place] [id number] [place] [address] 85094- 0847 May, Well woman exam Z01.419 ; Breast cancer screening Z12.39 ; Cervical cancer screening Z12.4 ; Urinary frequency R35.0 ; Edema, unspecified type R60.9 and Chronic constipation K59.09 [place] [id number] [place] [address] 62956- 5856 May, Major depressive disorder, recurrent, moderate F33.1 ; Anxiety disorder, unspecified F41.9 and 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 [facility] [address] [id number] [place] [address] [id number] May, Dental examination Z01.20 [place] [id number] [place] [address] 48028- 5046 May, [place] [id number] [place] [address] 12632- 6462 May, [place] [address] [id number] [place] [address] 58704- 0793 May, Chronic constipation K59.09 [place] [address] [id number] [place] [address] 01253- 7208 Apr, [place] [address] [id number] [place] [address] 69809- 8983 Apr, Major depressive disorder, recurrent, moderate F33.1 ; Anxiety disorder, unspecified F41.9 and 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 [place] [address] [place] [address]- 7796 02 Apr, 2016 [place] [address] [place] [address] [id number] [place] [address] 71837- 4130 Mar, Major depressive disorder, recurrent, moderate F33.1 [place] [address] [id number] [place] [address] 06507- 4522 Mar, Major depressive disorder, recurrent, moderate F33.1 ; Generalized anxiety disorder F41.1 and Bipolar I disorder, most recent episode depressed with anxious distress F31.30 [place] [id number] [place] [address] 67130- 0628 Mar, Diabetes E11.9 ; Non morbid obesity due to excess calories E66.09 ; Breast cancer screening Z12.39 and Encounter for immunization Z23 [place] [address] [id number] [place] [address] 07854- 0478 Mar, Major depressive disorder, recurrent, moderate F33.1 ; Anxiety disorder, unspecified F41.9 and 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 [place] [address] [place] [address] 77616- 7749 Mar, [place] [address] [id number] [place] [address] 53762- 7206 Feb, Major depressive disorder, recurrent, moderate F33.1 ; Anxiety disorder, unspecified F41.9 and 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 [place] [address] [place] [address] 73585- 6118 Feb, [place] [address] [place] [address] 46210- 6889 Feb, [place] [address] [id number] [place] [address] 16628- 2176 Jan, Major depressive disorder, recurrent, moderate F33.1 ; Generalized anxiety disorder F41.1 and Bipolar disorder, current episode depressed, severe, without psychotic features F31.4 [place] [address] [address]- 9239 Jan, Major depressive disorder, recurrent, moderate F33.1 ; Anxiety disorder, unspecified F41.9 and 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 [place] [address] [address]- 9026 Jan, Bronchitis J40 [place] [id number] [place] [address] 90330- 0863 Jan, [place] [address] [place] [address] 44695- 4060 Jan, [place] [id number] [place] [address] 96034- 4880 Jan, Elbow injury, right, initial encounter S59.901A ; Multiple contusions T14.8 and Cervical strain, acute, initial encounter S16.1XXA [place] [address] [place] [address] 10130- 9260 Dec, Major depressive disorder, recurrent, moderate F33.1 ; Generalized anxiety disorder F41.1 and Bipolar disorder with depression F31.30 [place] [address] [place] [address] 23731- 8973 Dec, [place] [address] [address]- 4645 Dec, [place] [address] [address]- 0481 Dec, [place] [address] [place] [address] 16944- 1690 Dec, [place] [address] [place] [address] 69992- 7996 Dec, Yeast infection B37.9 [place] [address] [place] [id number] [address]- 6177 Dec, Pneumonia of both lungs due to methicillin resistant Staphylococcus aureus (MRSA), unspecified part of lung J15.212 and Benzodiazepine overdose, accidental or unintentional, subsequent encounter T42.4X1D [facility] [id number] [place] [address] 62986- 0435 Dec, [facility] [id number] [place] [address]- 9256 Dec, [place] [address] 32569- 8668 Dec, Knee pain, left M25.562 and Edema, unspecified type R60.9 [place] [id number] [place] [address] 79555- 2438 Dec, [place] [id number] [place] [address] 50306- 8053 Dec, Anxiety disorder, unspecified F41.9 and Bipolar disorder, unspecified F31.9 [place] [id number] [place] [address] 97126- 5376 Nov, Major depressive disorder, recurrent, moderate F33.1 ; Anxiety disorder, unspecified F41.9 and 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 [place] [id number] [place] [address] 84854- 3683 Nov, [place] [id number] [place] [address] 46061- 2298 Nov, Migraine without aura and without status migrainosus, not intractable G43.009 [place] [address] [place] [address] 49436- 8270 Nov, Migraine G43.909 [place] [id number] [place] [address] 63730- 1802 Nov, [place] [id number] [place] [address] 64274- 2584 Nov, Major depressive disorder, recurrent, moderate F33.1 ; Anxiety disorder, unspecified F41.9 and 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 [place] [address] [place] [address] 72710- 5421 Oct, Chronic constipation K59.09 and Obesity, unspecified obesity severity, unspecified obesity type E66.9 [place] [id number] [place] [address] 27411- 0049 Oct, Obesity, unspecified obesity severity, unspecified obesity type E66.9 ; Chronic constipation K59.09 and Anxiety disorder, unspecified F41.9 [place] [id number] [place] [address] 35087- 9537 Oct, [place] [address] 90743- 3169 Sep, Diabetes E11.9 ; Edema, unspecified type R60.9 ; Varicose vein of leg I83.90 and Obesity, unspecified obesity severity, unspecified obesity type E66.9 [place] [id number] [place] [address] 85427- 5076 Sep, Edema, unspecified type R60.9 ; Diabetes E11.9 and Knee pain , left M25.562 [place] [id number] [place] [address] 20789- 6196 Sep, [place] [id number] [place] [address] 86353- 3905 Sep, [place] [id number] [place] [address] 78554- 0095 Sep, Major depressive disorder, recurrent, moderate F33.1 ; Generalized anxiety disorder F41.1 and Bipolar disorder, unspecified F31.9 [place] [id number] [place] [address] 75712- 5022 Aug, Chondromalacia of left knee M94.262 [place] [id number] [place] [address] 15112- 0156 Aug, Major depressive disorder, recurrent, moderate F33.1 ; Anxiety disorder, unspecified F41.9 and 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 [facility] [address] [address]- 9745 15 Aug, 2015 [facility] [id number] [place] [address] 49490- 6343 06 Aug, 2015 Osteoarthritis of left knee M17.9 [facility] [id number] [place] [address] 26807- 1227 02 Aug, 2015 [facility] [address] [place] [address] 39976- 5504 July, Major depressive disorder, recurrent, moderate F33.1 ; Anxiety disorder, unspecified F41.9 and 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 [facility] [id number] [place] [place] [address] 43518- 3379 July, [facility] [id number] [place] [address] 28094- 5213 July, Chronic constipation K59.09 [facility] [id number] [place] [address] 87507- 9437 Jun, [facility] [id number] [place] [address] 02880- 0432 15 Jun, 2015 [facility] [address] [address] 6546 14 Jun, 2015 Osteoarthritis of left knee M17.9 [facility] [address] [address] 8247 Jun, [facility] [id number] [place] [address] 93059- 3415 Jun, Generalized anxiety disorder F41.1 ; Bipolar disorder, unspecified F31.9 and Major depressive disorder, recurrent, moderate F33.1 [facility] [address] [address] 9240 07 Jun, 2015 Migraine G43.909 [facility] [id number] [place] [address] 61410- 6515 Jun, Left knee pain M25.562 ; Chronic constipation K59.09 ; Dry mouth R68.2 ; Yeast vaginitis B37.3 and Memory loss R41.3 [facility] [id number] [place] [address] 62176- 5701 Jun, [facility] [address] 78893- 1240 May, [facility] [address] 63753- 6548 May, [facility] [address] 49924- 9754 May, [facility] [address] 19535- 7415 May, [facility] [address] 95208- 0750 May, Acute bronchitis with COPD J44.0 ; Knee pain, left M25.562 and Encounter for tobacco use cessation counseling Z71.6 [facility] [address] 29964- 3426 May, [facility] [address] 57966- 9371 Apr, Diabetes E11.9 ; TMJ (sprain of temporomandibular joint) S03.4XXA ; Tobacco abuse Z72.0 ; Migraine G43.909 and Anxiety F41.9 [facility] [id number] [place] [address] 53414- 7374 Apr, Generalized anxiety disorder F41.1 and Bipolar disorder, unspecified F31.9 [facility] [id number] [place] [address] 81379- 8563 Apr, Major depressive disorder, recurrent, moderate F33.1 ; Anxiety disorder, unspecified F41.9 and 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 [facility] [id number] [place] [address] 07256- 0976 04 Apr, 2015 [facility] [id number] [place] [address] 23593- 0526 Mar, [facility] [id number] [place] [address] 20684- 7176 Feb, [facility] [id number] [place] [address] 66430- 0306 Feb, Major depressive disorder, recurrent, moderate F33.1 ; Anxiety disorder, unspecified F41.9 and 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 [facility] [id number] [place] [address] 52391- 6077 Feb, [facility] [id number] [place] [address] 10069- 1247 Feb, Generalized anxiety disorder F41.1 and Bipolar disorder, unspecified F31.9 [facility] [id number] [place] [address] 39404- 4512 Jan, [facility] [id number] [place] [address] 35108- 2828 18 Jan, 2015 [facility] [id number] [place] [address] 49976- 9012 Jan, Bipolar disorder, unspecified F31.9 and Generalized anxiety disorder F41.1 [facility] [id number] [place] [address] 78289- 0069 Dec, [facility] [id number] [place] [address] 74193- 9403 14 Dec, 2014 Bipolar disorder, unspecified F31.9 and Generalized anxiety disorder F41.1 [facility] [id number] [place] [address] 46686- 8139 Dec, Generalized anxiety disorder F41.1 and Major depressive disorder, recurrent, moderate F33.1 [facility] [id number] [place] [address] 12859- 2029 Oct, Headache 784.0 ; Cough 786.2 ; Vomiting and diarrhea 787.03 and Dysuria 788.1 [facility] [id number] [place] [address] 00811- 3275 Aug, [facility] [address] 26919- 0077 Aug, Headache 784.0 and Shortness of breath 786.05 [facility] [id number] [place] [address] 01030- 6199 Aug, [facility] [id number] [place] [address] 26313- 1699 Aug, Migraine 346.90 [facility] [id number] [place] [address] 27093- 2562 Jun, [facility] [id number] [place] [address] 22328- 3364 Jun, [facility] [id number] [place] [address] 59964- 2612 May, [facility] [id number] [place] [address] 72368- 1721 May, [facility] [id number] [place] [address] 40526- 8916 May, [facility] [id number] [place] [address] 67539- 4128 May, [facility] [id number] [place] [address] 39304- 1358 May, [facility] [id number] [place] [address] 97091- 3402 May, [facility] [id number] [place] [address] 01127- 3880 Apr, [facility] [place] [facility] [address] [id number] [place] [address]- 8880 Apr, 2014 [facility] [place] [facility] [address] [id number] [place] [address]- 4429 Apr, 2014 [facility] [place] [facility] [address] [id number] [place] [address]- 4782 Apr, 2014 [facility] [place] [facility] [address] [id number] [place] [address]- 7131 Apr, [facility] [place] [facility] [address] [id number] [place] [address]- 7521 Mar, [facility] [place] [facility] [address] [id number] [place] [address]- 2567 Mar, [facility] [place] [facility] [address] [id number] [place] [address]- 7546 Mar, [facility] [place] [facility] [address] [id number] [place] [address]- 5101 Mar, [facility] [place] [facility] [address] [id number] [place] [address]- 4322 Feb, [facility] [place] [facility] [address] [id number] [place] [address]- 9912 Feb, [facility] [place] [facility] [address] [id number] [place] [address]- 6852 18 Feb, 2014 [facility] [place] [facility] [address] [id number] [place] [address]- 3361 18 Feb, 2014 [facility] [place] [facility] [address] [id number] [place] [address]- 0699 16 Feb, 2014 [facility] [place] [facility] [address] [id number] [place] [address]- 4181 16 Feb, 2014 [facility] [place] [facility] [address] [id number] [place] 6062 11 Feb, 2014 [facility] [place] [facility] [address] [id number] [place] [address]- 5335 Feb, [facility] [place] [facility] [address] [id number] [place] [address]- 9322 Feb, [facility] [place] [facility] [address] [id number] [place] [address]- 9346 Feb, [facility] [place] [facility] [address] [id number] [place] 2344 Feb, [facility] [place] [facility] [address] [id number] [place] [address]- 6698 Feb, [facility] [place] [facility] [address] [id number] [place] [address]- 4305 Jan, [facility] [place] [facility] [address] [id number] [place] [address]- 0804 Jan, [facility] [place] [facility] [address] [id number] [place] [address]- 0192 Dec, [facility] [place] [facility] [address] [id number] [place] [address]- 6689 Dec, [facility] [place] [facility] [address] [id number] [place] [address]- 7403 Dec, [facility] [place] [facility] [address] [id number] [place] [address]- 1364 Dec, [facility] [place] [facility] [address] [id number] [place] [address]- 7003 Dec, [facility] [place] [facility] [address] [id number] [place] [address]- 1229 Dec, [facility] [place] [facility] [address] [id number] [place] [address]- 2084 Sep, [facility] [place] [facility] [address] [id number] [place] 8670 Sep, [facility] [place] [facility] [address] [id number] [place] 4702 Sep, [facility] [place] [facility] [address] [id number] [place] [address]- 2696 Sep, 2013 [facility] [place] [facility] [address] [id number] [place] [address]- 6599 Sep, 2013 [facility] [place] [facility] [address] [id number] [place] [address]- 1590 Sep, 2013 [facility] [place] [facility] [address] [id number] [place] [address]- 7865 Sep, 2013 [facility] [place] [facility] [address] [id number] [place] [address]- 4464 Sep, 2013 [facility] [place] [facility] [address] [id number] [place] [address]- 7625 Sep, 2013 [facility] [place] [facility] [address] [id number] [place] [address]- 8738 Sep, 2013 [facility] [place] [facility] [address] [id number] [place] [address]- 7423 24 Aug, 2013 [facility] [place] [facility] [address] [id number] [place] [address]- 4554 Aug, [facility] [place] [facility] [address] [id number] [place] [address]- 7107 Aug, [facility] [place] [facility] [address] [id number] [place] [address]- 7631 Aug, [facility] [place] [facility] [address] [id number] [place] [address]- 3263 Aug, [facility] [place] [facility] [address] [id number] [place] [address]- 0799 14 Aug, 2013 [facility] [place] [facility] [address] [id number] [place] [address]- 9444 Aug, [facility] [place] [facility] [address] [id number] [place] [address]- 6692 Aug, [facility] [place] [facility] [address] [id number] [place] [address]- 9156 Aug, [facility] [place] [facility] [address] [id number] [place] [address]- 3240 Aug, [facility] [place] [facility] [address] [id number] [place] [address]- 3897 Aug, [facility] [place] [facility] [address] [id number] [place] [address]- 8726 Aug, [facility] [place] [facility] [address] [id number] [place] [address]- 7950 Aug, [facility] [place] [facility] [address] [id number] [place] [address]- 1800 July, [facility] [place] [facility] [address] [id number] [place] [address]- 7540 July, [facility] [place] [facility] [address] [id number] [place] [address]- 3956 July, [facility] [place] [facility] [address] [id number] [place] [address]- 3952 July, [facility] [place] [facility] [address] [id number] [place] [address]- 2641 July, [facility] [place] [facility] [address] [id number] [place] [address]- 9307 July, [facility] [place] [facility] [address] [id number] [place] [address]- 3011 July, [facility] [place] [facility] [address] [id number] [place] [address]- 5090 Jun, [facility] [place] [facility] [address] [id number] [place] [address]- 5859 Jun, [facility] [place] [facility] [address] [id number] [place] [address]- 9506 Jun, [facility] [place] [facility] [address] [id number] [place] [address]- 4142 Jun, [facility] [place] [facility] [address] [id number] [place] [address]- 3520 16 Jun, 2013 [facility] [place] [facility] [address] [id number] [place] [address]- 8177 08 Jun, 2013 [facility] [place] [facility] [address] [id number] [place] [address]- 0293 08 Jun, 2013 [facility] [place] [facility] [address] [id number] [place] [address]- 2048 17 May, 2013 [facility] [place] [facility] [address] [id number] [place] [address]- 1357 17 May, 2013 [facility] [place] [facility] [address] [id number] [place] [address]- 3452 14 May, 2013 [facility] [place] [facility] [address] [id number] [place] [address]- 1322 14 May, 2013 [facility] [place] [facility] [address] [id number] [place] [address]- 1128 13 May, 2013 [facility] [place] [facility] [address] [id number] [place] [address]- 0771 13 May, 2013 [facility] [place] [facility] [address] [id number] [place] [address]- 2676 10 May, 2013 [facility] [place] [facility] [address] [facility] [id number] [place] [address]- 7938 10 May, 2013 [facility] [place] [facility] [address] [id number] [place] [address]- 8674 07 May, 2013 [facility] [place] [facility] [address] [id number] [place] [address]- 4917 26 Apr, 2013 [facility] [place] [facility] [address] [id number] [place] [address]- 8529 26 Apr, 2013 [facility] [place] [facility] [address] [id number] [place] [address]- 3411 18 Apr, 2013 [facility] [place] [facility] [address] [id number] [place] [address]- 4605 Apr, [facility] [place] [facility] [address] [id number] [place] [address]- 7095 Apr, [facility] [place] [facility] [address] [id number] [place] [address]- 5336 Apr, [facility] [place] [facility] [address] [id number] [place] [address]- 0413 Apr, [facility] [place] [facility] [address] [id number] [place] [address]- 0395 Apr, [facility] [place] [facility] [address] [id number] [place] [address]- 6632 Apr, [facility] [place] [facility] [address] [id number] [place] [address]- 7728 Apr, [facility] [place] [facility] [address] [id number] [place] [address]- 3739 Mar, [facility] [place] [facility] [address] [id number] [place] [address]- 5354 Mar, [facility] [place] [facility] [address] [id number] [place] [address]- 1102 Mar, [facility] [place] [facility] [address] [id number] [place] [address]- 7009 Mar, [facility] [place] [facility] [address] [id number] [place] [address]- 2195 Mar, [facility] [place] [facility] [address] [id number] [place] [address]- 5446 Mar, [facility] [place] [facility] [address] [id number] [place] [address]- 4450 Mar, [facility] [place] [facility] [address] [id number] [place] [address]- 2955 Mar, [facility] [place] [facility] [address] [id number] [place] [address]- 7346 Feb, [facility] [place] [facility] [address] [id number] [place] [address]- 3354 10 Feb, 2013 [facility] [place] [facility] [address] [id number] [place] [address]- 7828 18 Jan, 2013 [facility] [place] [facility] [address] [id number] [place] [address]- 9838 18 Jan, 2013 [facility] [place] [facility] [address] [id number] [place] [address]- 6126 15 Jan, 2013 [facility] [place] [facility] [address] [id number] [place] [address]- 9658 15 Jan, 2013 [facility] [place] [facility] [address] [id number] [place] [address]- 2833 Jan, [facility] [place] [facility] [address] [id number] [place] [address]- 4048 Jan, [facility] [place] [facility] [address] [facility] [id number] [place] [address]- 8364 Jan, [facility] [place] [facility] [address] [id number] [place] [address]- 4348 05 Jan, 2013 [facility] [place] [facility] [address] [id number] [place] [address]- 4634 Dec, [facility] [place] [facility] [address] [facility] [id number] [place] [address]- 4269 Dec, [facility] [place] [facility] [address] [id number] [place] [address]- 1470 10 Dec, 2012 [facility] [place] [facility] [address] [id number] [place] [address]- 0468 20 Nov, 2012 [facility] [place] [facility] [address] [id number] [place] [address]- 5879 13 Nov, 2012 [facility] [place] [facility] [address] [facility] [id number] [place] [address]- 3215 12 Nov, 2012 [facility] [place] [facility] [address] [id number] [place] [address]- 0291 Nov, [facility] [place] [facility] [address] [id number] [place] [address]- 6243 Nov, [facility] [place] [facility] [address] [id number] [place] [address]- 0556 Nov, [facility] [place] [facility] [address] [id number] [place] [address]- 7254 Oct, [facility] [place] [facility] [address] [id number] [place] [address]- 8054 Oct, [facility] [address] [id number] [place] [address]- 0964 Sep, [facility] [place] [facility] [address] [id number] [place] [address]- 1302 Sep, [facility] [address] [id number] [place] [address]- 1009 Sep, [facility] [address] [id number] [place] [address]- 6572 Sep, [facility] [place] [facility] [address] [id number] [place] [address]- 8155 Sep, [facility] [place] [facility] [address] [id number] [place] [address]- 8691 Sep, [facility] [place] [facility] [address] [id number] [place] [address]- 7306 Sep, [facility] [place] [facility] [address] [id number] [place] [address]- 2358 Aug, [facility] [place] [facility] [address] [id number] [place] [address]- 3473 Aug, [facility] [place] [facility] [address] [id number] [place] [address]- 7609 Aug, [facility] [place] [facility] [address] [id number] [place] [address]- 9616 Aug, [facility] [place] [facility] [address] [id number] [place] [address]- 5875 Aug, [facility] [address] [id number] [place] [address]- 4250 Aug, [facility] [address] [id number] [place] [address]- 6620 July, [facility] [address] [id number] [place] [address]- 1691 July, [facility] [address] [id number] [place] [address]- 9132 July, [facility] [address] [id number] [place] [address]- 6939 July, [facility] [address] [id number] [place] [address]- 1779 July, [facility] [address] [id number] [place] [address]- 1763 July, [facility] [address] [id number] [place] [address]- 0614 Jun, [facility] [place] [facility] [address] [id number] [place] [address]- 1165 Jun, [facility] [place] [facility] [address] [id number] [place] [address]- 5343 Jun, [facility] [place] [facility] [address] [id number] [place] [address]- 7786 Jun, [facility] [place] [facility] [address] [id number] [place] [address]- 1209 Jun, [facility] [place] [facility] [address] [id number] [place] [address]- 7643 Jun, [facility] [place] [facility] [address] [id number] [place] [address]- 0878 Jun, [facility] [place] [facility] [address] [id number] [place] [address]- 8805 May, [facility] [place] [facility] [address] [id number] [place] [address]- 7230 May, [facility] [address] [id number] [place] [address]- 8925 Apr, 2012 [facility] [place] [facility] [address] [id number] [place] [address]- 2546 Apr, [facility] [place] [facility] [address] [id number] [place] [address]- 2546 Apr, 2012 [facility] [place] [facility] [address] [id number] [place] [address]- 2544 Apr, [facility] [place] [facility] [address] [id number] [place] [address] Apr, [facility] [address] [id number] [place] [address] 08 Apr, 2012 [facility] [place] [facility] [address] [id number] [place] [address] Apr, [facility] [place] [facility] [address] [id number] [place] [address] Apr, [facility] [place] [facility] [address] [id number] [place] [address] 06 Apr, 2012 [facility] [place] [facility] [address] [id number] [place] [address] Apr, [facility] [place] [facility] [address] [id number] [place] [address] Apr, [facility] [place] [facility] [address] [id number] [place] [address] Mar, [facility] [place] [facility] [address] [id number] [place] [address] Mar, [facility] [place] [facility] [address] [id number] [place] [address] Mar, [facility] [place] [facility] [address] [id number] [place] [address] Mar, [facility] [address] [id number] [place] [address] Mar, [facility] [address] [id number] [place] [address] Mar, [facility] [address] [id number] [place] [address] 15 Mar, 2012 [facility] [address] [id number] [place] [address] 1183 15 Mar, 2012 [facility] [address] [id number] [place] [address] Mar, [facility] [address] [id number] [place] [address] Mar, [facility] [address] [id number] [place] [address] 4568 Mar, [facility] [address] [id number] [place] [address] 24[address] Mar, [facility] [address] [id number] [place] [address] 26[address] Mar, [facility] [address] [id number] [place] [address] Feb, [facility] [address] [id number] [place] [address] 9514 Feb, [facility] [place] [facility] [address] [id number] [place] [address] 14[address] Feb, [facility] [place] [facility] [address] [id number] [place] [address]40 Feb, [facility] [place] [facility] [address] [id number] [place] [address]307 Feb, [facility] [address] [id number] [place] [address] 2119 Feb, [facility] [place] [facility] [address] [id number] [place] [address] 3835 Feb, [facility] [place] [facility] [address] [id number] [place] [address] 3536 Feb, [facility] [place] [facility] [address] [id number] [place] [address]- 4966 Feb, [facility] [place] [facility] [address] [id number] [place] [address] 8926 Feb, [facility] [place] [facility] [address] [id number] [place] [address] Feb, [facility] [place] [facility] [address] [id number] [place] [address] 1715 Feb, [facility] [place] [facility] [address] [id number] [place] [address] 8539 Feb, [facility] [place] [facility] [address] [id number] [place] [address] 6898 Feb, [facility] [place] [facility] [address] [id number] [place] [address]843 Feb, [facility] [place] [facility] [address] [id number] [place] [address] Jan, [facility] [place] [facility] [address] [id number] [place] [address] Jan, [facility] [place] [facility] [address] [id number] [place] [address]90 Jan, [facility] [place] [facility] [address] [id number] [place] [address]647 Jan, [facility] [place] [facility] [address] [id number] [place] [address] 118[address] Dec, [facility] [place] [facility] [address] [id number] [place] [address]- 43[address] Dec, [facility] [place] [facility] [address] [id number] [place] [address]- [address] Dec, [facility] [place] [facility] [address] [id number] [place] [address]- [address] Dec, [facility] [place] [facility] [address] [id number] [place] [address] 0461 Dec, [facility] [place] [facility] [address] [id number] [place] [address]- 276[address] Dec, [facility] [place] [facility] [address] [id number] [place] [address]- [address] Dec, [facility] [place] [facility] [address] [id number] [place] [address]- [address]137 16 Dec, 2011 [facility] [place] [facility] [address] [id number] [place] [address]- [address]885 Dec, [facility] [place] [facility] [address] [id number] [place] [address]- 7917 04 Dec, 2011 [facility] [place] [facility] [address] [id number] [place] [address]- [address] 03 Dec, 2011 [facility] [place] [facility] [address] [id number] [place] [address]- 1398 25 Sep2011 [facility] [place] [facility] [address] [id number] [place] [address]097 24 Sep, 2011 [facility] [place] [facility] [address] [id number] [place] [address]- 4[address] 20 Sep, 2011 [facility] [place] [facility] [address] [id number] [place] [address]- [address] 19 Sep, 2011 [facility] [place] [facility] [address] [id number] [place] [address]- [address]448 17 Sep, 2011 [facility] [place] [facility] [address] [id number] [place] [address]- 0418 16 Sep, 2011 [facility] [place] [facility] [address] [id number] [place] [address]- [address]30 14 Sep, 2011 [facility] [place] [facility] [address] [id number] [place] [address]- [address] 13 Nov, 2011 [facility] [place] [facility] [address] [id number] [place] [address]- 9716 12 Sep, 2011 [facility] [place] [facility] [address] [id number] [place] [address]- 9856 07 Nov, 2011 [facility] [place] [facility] [address] [id number] [place] [address]- 2006 06 Sep, 2011 [facility] [place] [facility] [address] [id number] [place] [address] 2546 06 Nov, 2011 [facility] [place] [facility] [address] [id number] [place] [address]- [address] 05 Nov, 2011 [facility] [place] [facility] [address] [id number] [place] [address]- 0316 29 Oct, 2011 [facility] [place] [facility] [address] [id number] [place] [address]- 0053 29 Oct, 2011 [facility] [place] [facility] [address] [id number] [place] [address] 254 Oct, [facility] [place] [facility] [address] [id number] [place] [address]- 6151 28 Oct, 2011 [facility] [place] [facility] [address] [id number] [place] [address] 23 Oct, 2011 [facility] [place] [facility] [address] [id number] [place] [address] Oct, [facility] [place] [facility] [address] [id number] [place] [address]44 20 Oct, 2011 [facility] [place] [facility] [address] [id number] [place] [address] 16 Oct, 2011 [facility] [place] [facility] [address] [id number] [place] [address] 15 Oct, 2011 [facility] [place] [facility] [address] [id number] [place] [address] 13 Oct, 2011 [facility] [place] [facility] [address] [id number] [place] [address] Oct, [facility] [place] [facility] [address] [id number] [place] [address] Sep, [facility] [place] [facility] [address] [id number] [place] [address] Sep, [facility] [place] [facility] [address] [id number] [place] [address] Sep, [facility] [place] [facility] [address] [id number] [place] [address] Sep, [facility] [place] [facility] [address] [id number] [place] [address] Sep, [facility] [place] [facility] [address] [id number] [place] [address] Sep, [facility] [place] [facility] [address] [id number] [place] [address] Aug, [facility] [place] [facility] [address] [id number] [place] [address] July, [facility] [place] [facility] [address] [id number] [place] [address] July, [facility] [place] [facility] [address] [id number] [place] [address] Jun, [facility] [place] [facility] [address] [id number] [place] [address] 79[address] Jun, [facility] [place] [facility] [address] [id number] [place] [address] Jun, [facility] [place] [facility] [address] [id number] [place] [address]- [address] Jun, [facility] [place] [facility] [address] [id number] [place] [address]- 239[address] Jun, [facility] [place] [facility] [address] [id number] [place] [address] 2608 10 Jun, 2011 [facility] [address] [id number] [place] [address]- 1993 09 Jun, 2011 [facility] [place] [facility] [address] [id number] [place] 08 Jun, 2011 [facility] [place] [facility] [address] [id number] [place] [address]- 94[address] Jun, [facility] [place] [facility] [address] [id number] [place] [address]- [address] Jun, [facility] [place] [facility] [address] [id number] [place] [address]- 95[address] Jun, [facility] [place] [facility] [address] [id number] [place] [address] 19 May, 2011 [facility] [place] [facility] [address] [id number] [place] [address] 39[address] 16 May, 2011 [facility] [place] [facility] [address] [id number] [place] [address]- [address] 14 May, 2011 [facility] [place] [facility] [address] [id number] [place] [address]- [address] 06 May, 2011 [facility] [place] [facility] [address] [id number] [place] [address]- [address]46 28 Apr, 2011 [facility] [place] [facility] [address] [id number] [place] [address] 7651 28 Apr, 2011 [facility] [place] [facility] [address] [id number] [place] [address] 8[address] 27 Apr, 2011 [facility] [place] [facility] [address] [id number] [place] [address]- 3091 23 Apr, 2011 [facility] [place] [facility] [address] [id number] [place] [address]- [address] 23 Apr, 2011 [facility] [place] [facility] [address] [id number] [place] [address]- [address] 22 Apr, 2011 [facility] [place] [facility] [address] [id number] [place] [address]- 1580 Apr, [facility] [address] [id number] [place] [address]- 8094 Apr, [facility] [place] [facility] [address] [id number] [place] [address] Mar, [facility] [address] [id number] [place] [address]- [address]60 Mar, [facility] [address] [id number] [place] [address]- 6914 Mar, [facility] [address] [id number] [place] [address]- [address]45 Mar, [facility] [address] [id number] [place] [address]- [address]58 Mar, [facility] [address] [id number] [place] [address] Mar, [facility] [address] [id number] [place] [address]- 3477 Mar, [facility] [address] [id number] [place] [address]- 67[address] Mar, [facility] [place] [facility] [address] [id number] [place] [address]- [address] Mar, [facility] [address] [id number] [place] [address]- 7610 Mar, [facility] [place] [facility] [address] [id number] [place] [address]- 2744 Mar, [facility] [place] [facility] [address] [id number] [place] [address]- [address] Mar, [facility] [place] [facility] [address] [id number] [place] [address]- 9597 Mar, [facility] [place] [facility] [address] [id number] [place] [address]- 4036 Mar, [facility] [place] [facility] [address] [id number] [place] [address]- 60[address] Mar, [facility] [place] [facility] [address] [id number] [place] [address]- 6918 Mar, [facility] [place] [facility] [address] [id number] [place] [address]- 0033 Feb, [facility] [place] [facility] [address] [id number] [place] [address]- 1748 Feb, [facility] [place] [facility] [address] [id number] [place] [address]- 4415 Feb, [facility] [place] [facility] [address] [id number] [place] [address]- 1045 Jan, [facility] [place] [facility] [address] [id number] [place] [address]- 3768 Jan, [facility] [place] [facility] [address] [id number] [place] [address]- 7056 Jan, [facility] [place] [facility] [address] [id number] [place] [address]- 1238 Dec, [facility] [place] [facility] [address] [id number] [place] [address]- 4582 Dec, [facility] [place] [facility] [address] [id number] [place] [address]- 3523 Nov, [facility] [place] [facility] [address] [id number] [place] [address]- 8890 Oct, [facility] [place] [facility] [address] [id number] [place] [address]- 9048 Oct, [facility] [place] [facility] [address] [id number] [place] [address]- 2836 Oct, [facility] [place] [facility] [address] [id number] [place] [address]- 2557 Sep, [facility] [place] [facility] [address] [id number] [place] [address]- [address] Apr, [facility] [address] [id number] [place] [address]- 2546 Feb, [facility] [address] [id number] [place] [address]- [address] Jan, IMMUNIZATIONS No Known Immunizations SOCIAL HISTORY Never Assessed REASON FOR VISIT EMR-[place] PLAN OF CARE VITAL SIGNS MEDICATIONS No [...] 2/2 Benzos OD, pneumonia MRSA, MAYRA, Hypokalemia-- [facility] 12/20/2015 Hospitalization History COPD exacerbation, Asthma-[facility] 09/21/16 Hospitalization History COPD-[facility] 12/30/2016 [facility] so[facility] Hospitalization History for COPD x2 Mar 2017 Hospitalization History Upper GI bleed at apr [address] [facility]- COPD Exacerbation, diarrhea 05/23/2017 Hospitalization History COPD exacerbation-[facility] 06/13/17 Hospitalization History CHF 09/09/2017 Hospitalization History COPD-UTI--[facility] 11/2017
--- OUTSIDE RECORDS SUMMARY | 2018-06-30 11:44 | XMS REPORT ---
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 Active Problem TMJ (sprain of temporomandibular joint) S03.4XXA Active 92288854 Problem Migraine G43.909 Active 57215983 Problem Memory loss R41.3 Active 44884193 Problem Chronic constipation K59.09 Active 717994781 Problem Bipolar disorder with depression F31.30 Active 30970096 Problem Bipolar disorder, unspecified F31.9 Active 16026646 Problem Migraine without aura and without status migrainosus, not intractable G43.009 Active 532301072 Problem Chronic bronchitis, unspecified chronic bronchitis type J42 Active 34023756 Problem Methamphetamine use disorder, moderate, 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 Active 80043584 Problem Acute on chronic systolic congestive heart failure I50.23 Active 400567931 Problem Other emphysema J43.8 Active 10338996 Problem COPD exacerbation J44.1 Active 797592667 Problem Generalized anxiety disorder F41.1 Active 11250685 Problem Examination of eyes and vision V72.0 Active 621455031 Problem Diabetes E11.9 Active 128160450 Problem Intractable cyclical vomiting with nausea G43.A1 Active 59410067 Problem Anxiety F41.9 Active 20085953 Problem Chronic obstructive pulmonary disease, unspecified COPD type J44.9 Active 71977168 ALLERGIES No Information ENCOUNTERS Encounter Location Date Diagnosis [place] [id number] [address] May, Chronic obstructive pulmonary disease with acute exacerbation J44.1 [facility] [address] [address] Apr, [place] [address] [id number] [place] [address] 54136- 9037 Apr, [facility] [id number] [place] [address] 54399- 4205 Feb, Diabetes E11.9 ; Chronic obstructive pulmonary disease with (acute) exacerbation J44.1 and Encounter for immunization Z23 [facility] [id number] [place] [address] 36795- 0954 Jan, COPD exacerbation J44.1 [facility] [id number] [place] [address] 23459- 0224 Jan, Dental abscess K04.7 [facility] [address] [address]- 6070 Jan, COPD exacerbation J44.1 and Acute on chronic systolic congestive heart failure I50.23 [facility] [id number] [place] [address] 90219- 9459 Dec, [facility] [id number] [place] [address] 73187- 0250 Dec, [facility] [id number] [place] [address] 43866- 6334 Nov, [facility] [id number] [place] [address] 54578- 2350 Nov, COPD with exacerbation J44.1 and Urinary tract infection without hematuria, site unspecified N39.0 [facility] [id number] [place] [address] 10063- 0340 Nov, Chronic obstructive pulmonary disease, unspecified COPD type J44.9 [facility] [id number] [place] [address] 64134- 4408 Oct, [facility] [id number] [place] [address] 40373- 3834 Oct, [facility] [id number] [place] [address] 62230- 5416 Oct, [facility] [address] [facility] [id number] [address] Oct, [facility] [address] [address] Oct, Thrush B37.0 [facility] [address], [place] [address] 2906 Sep, COPD with exacerbation J44.1 and Anxiety F41.9 [facility] [address], [place] [address] 8527 Sep, [facility] [address] [address]- 7152 Sep, [facility] [id number], [place] [address] 2297 Sep, [facility] [address] [address] 0312 Sep, Acute congestive heart failure, unspecified heart failure type I50.9 and Anxiety disorder, unspecified F41.9 [facility] [address], [place] [address] 9931 Sep, Heart failure, unspecified HF chronicity, unspecified heart failure type I50.9 [facility] [id number], [place] [address] 1105 Sep, [facility] [id number] [address]- 5935 Aug, Chronic obstructive pulmonary disease with acute exacerbation J44.1 [facility] [address] [place] [id number] [address] 3549 Aug, [facility] [id number], [place] [address] 0287 Aug, [facility] [id number], [place] [address]- 8728 July, [facility] [id number] [place] [address] 49317- 6245 July, [facility] [id number] [place] [address] 41775- 2695 July, Diabetes E11.9 and Chronic obstructive pulmonary disease with acute exacerbation J44.1 [facility] [id number] [place] [address] 37731- 3586 Jun, Chronic obstructive pulmonary disease with acute exacerbation J44.1 ; Diabetes E11.9 and Tobacco abuse Z72.0 [facility] [id number] [place] [address] 67052- 8926 Jun, [facility] [address] 54164- 1633 Jun, [facility] [id number] [place] [address] 89894- 5524 May, [facility] [address] 17920- 2263 May, [facility] [id number] [place] [address] 70240 -9114 17 May, 2017 [facility] [id number] [place] [address] 06732- 7000 16 May, 2017 [facility] [id number] [place] [address] 21966- 5726 15 May, 2017 [facility] [id number] [place] [address] 54431- 2716 14 May, 2017 Diarrhea, unspecified type R19.7 and Intractable cyclical vomiting with nausea G43.A1 [facility] [id number] [place] [address] 20815- 3488 May, [facility] [id number] [place] [address] 60717- 2358 05 May, 2017 [facility] [id number] [place] [address] 84616- 5819 28 Apr, 2017 COPD exacerbation J44.1 ; Esophageal candidiasis B37.81 ; Other acute gastritis with hemorrhage K29.01 and Acute posthemorrhagic anemia D62 [facility] [address] 09865- 6072 Apr, Viral illness B34.9 and COPD exacerbation J44.1 [facility] [address] 27436 -5953 Apr, Shortness of breath R06.02 and Pneumonia of both lower lobes due to infectious organism J18.9 [facility] [address] 15274 -2073 Mar, COPD with acute exacerbation J44.1 [place] [address] 21812- 5838 Mar, Chronic obstructive pulmonary disease with acute exacerbation J44.1 and Diabetes E11.9 [place] [address] 58079- 7380 Mar, [facility] [address] 48003- 3899 Mar, [facility] [address] 35754 -2606 Mar, COPD exacerbation J44.1 [place] [address] 37293- 0418 Mar, [place] [address] 41791- 7004 Mar, Migraine G43.909 ; Hypokalemia E87.6 and Type 2 diabetes mellitus without complications E11.9 [place] [address] 68766- 8355 Feb, [place] [address] 65108- 9771 Feb, [facility] [address] 62355- 2369 Feb, Methamphetamine use disorder, moderate, 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 ; Major depressive disorder, recurrent, moderate F33.1 ; Anxiety disorder, unspecified F41.9 and Tobacco abuse Z72.0 [place] [address] [place] [id number] [place] [address] 11952- 8357 Jan, Major depressive disorder, recurrent, moderate F33.1 [place] [address] 34215- 4556 Jan, [place] [address] [id number] [place] [address] 11624- 5638 Jan, [place] [address] 54099- 2963 Jan, Major depressive disorder, recurrent, moderate F33.1 [place] [address] 53758- 0746 Jan, Major depressive disorder, recurrent, moderate F33.1 ; Anxiety disorder, unspecified F41.9 ; Methamphetamine use disorder, moderate, 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 and Tobacco abuse Z72.0 [place] [address] 64146- 5947 Jan, [address] 87746- 4724 Jan, Chronic obstructive pulmonary disease with acute exacerbation J44.1 and Diabetes E11.9 [place] [id number] [place] [address] 00350- 2754 Jan, [place] [address] [place] [id number] [place] [address] 72349- 8376 Jan, [address] 52798- 1263 Dec, Acute respiratory failure with hypoxia J96.01 ; Chronic bronchitis, unspecified chronic bronchitis type J42 and Tobacco use Z72.[address] 11537- 3632 Dec, [facility] [id number] [id number] Nov, Dental caries K02.9 and Dental examination Z01.20 [facility] [address] [id number] [place] [address] 86817- 7042 Nov, Major depressive disorder, recurrent, moderate F33.1 ; Anxiety disorder, unspecified F41.9 and 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 [facility] [address] [id number] [place] [address] [id number] Oct, Dental examination Z01.20 [facility] [address] [id number] [place] [address] 64520- 9291 Oct, [facility] [address] [id number] [place] [address] 90590- 5699 Oct, Diabetes E11.9 and Thrush B37.0 [facility] [id number] [place] [address] 17992- 6015 Oct, [facility] [id number] [place] [address] 58372- 8963 Oct, [facility] [id number] [place] [address] 17227- 8139 Oct, [facility] [id number] [place] [address] 76610- 8356 Sep, Major depressive disorder, recurrent, moderate F33.1 ; Anxiety disorder, unspecified F41.9 and Bipolar disorder, unspecified F31.9 [facility] [id number] [place] [address] 09551- 4536 Sep, Acute exacerbation of chronic obstructive pulmonary disease (COPD) J44.1 and Migraine G43.909 [facility] [id number] [place] [address] 37050- 5350 Sep, [facility] [address] [id number] [place] [address] [id number] Sep, [facility] [id number] [place] [address] 48992- 7130 Sep, Acute exacerbation of chronic obstructive pulmonary disease (COPD) J44.1 [facility] [id number] [place] [address] 31236 -0109 Sep, Acute exacerbation of chronic obstructive pulmonary disease (COPD) J44.1 [facility] [id number] [place] [address] 96103- 7388 Aug, [facility] [id number] [place] [address] 72770- 6549 Aug, Major depressive disorder, recurrent, moderate F33.1 ; Anxiety disorder, unspecified F41.9 and 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 [facility] [id number] [place] [address] 30475- 6105 19 Aug, 2016 Wheezing R06.2 ; Non morbid obesity due to excess calories E66.09 ; Migraine without aura and without status migrainosus, not intractable G43.009 and Tobacco abuse Z72.0 [facility] [address] [id number] [place] [address] [id number] 14 Aug, 2016 Encounter for dental examination Z01.20 [facility] [address] [place] [address] 46505- 9026 02 Aug, 2016 Major depressive disorder, recurrent, moderate F33.1 ; Anxiety disorder, unspecified F41.9 and 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 [facility] [address] [place] [address] 95496- 1058 July, [facility] [address] [id number] [place] [address] 98170- 6465 July, [facility] [address] [id number] [place] [address] 02781- 1538 July, [facility] [address] [id number] [place] [address] 56010- 0571 July, Diabetes E11.9 [facility] [address] [id number] [place] [address] 79506- 9221 Jun, Major depressive disorder, recurrent, moderate F33.1 [facility] [id number] [place] [address] 54222- 6061 Jun, Major depressive disorder, recurrent, moderate F33.1 ; 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 ; Generalized anxiety disorder F41.1 and Bipolar disorder, unspecified F31.9 [facility] [id number] [place] [address] 67981- 4061 Jun, Diabetes E11.9 ; Migraine G43.909 ; Thrush B37.0 and Wheezing R06.2 [facility] [address] [id number] Jun, Dental examination Z01.20 [facility] [address] 71957- 6004 Jun, [facility] [address] 12997- 2068 Jun, Major depressive disorder, recurrent, moderate F33.1 ; Anxiety disorder, unspecified F41.9 and 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 [facility] [id number] [place] [address] 39671- 6755 Jun, [facility] [id number] [place] [address] 97780- 4892 Jun, Wheezing R06.2 [facility] [address] [id number] Jun, Dental caries K02.9 [facility] [address] 03018- 1350 Jun, Major depressive disorder, recurrent, moderate F33.1 ; Anxiety disorder, unspecified F41.9 and 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 [facility] [id number] [place] [address] 05821- 8475 Jun, RLQ abdominal pain R10.31 ; Diabetes E11.9 ; Obesity, unspecified obesity severity, unspecified obesity type E66.9 ; Wheezing R06.2 and Abnormal urinalysis R82.90 [place] [address] [place] [id number] [place] [address] 11788- 9513 May, [place] [address] [place] [id number] [place] [address] 49876- 0917 May, Well woman exam Z01.419 ; Breast cancer screening Z12.39 ; Cervical cancer screening Z12.4 ; Urinary frequency R35.0 ; Edema, unspecified type R60.9 and Chronic constipation K59.09 [place] [address] [place] [id number] [place] [address] 66940- 8932 May, Major depressive disorder, recurrent, moderate F33.1 ; Anxiety disorder, unspecified F41.9 and 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 [facility] [address] [id number] [place] [address] [id number] May, Dental examination Z01.20 [place] [address] [place] [place] [id number] [place] [address] 04198- 5282 May, [place] [address] [place] [id number] [place] [address] 24996- 1413 May, [place] [address] [place] [id number] [place] [address] 47970- 7100 May, Chronic constipation K59.09 [place] [address] [id number] [place] [address] 41269- 6506 Apr, [place] [address] [place] [id number] [place] [address] 79743- 3853 Apr, Major depressive disorder, recurrent, moderate F33.1 ; Anxiety disorder, unspecified F41.9 and 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 [place] [address] [place] [address]- 2977 02 Apr, 2016 [place] [address] [place] [id number] [place] [address] 19916- 1005 Mar, Major depressive disorder, recurrent, moderate F33.1 [place] [address] [place] [id number] [place] [address] 95478- 8794 Mar, Major depressive disorder, recurrent, moderate F33.1 ; Generalized anxiety disorder F41.1 and Bipolar I disorder, most recent episode depressed with anxious distress F31.30 [place] [address] [place] [id number] [place] [address] 99441- 8848 Mar, Diabetes E11.9 ; Non morbid obesity due to excess calories E66.09 ; Breast cancer screening Z12.39 and Encounter for immunization Z23 [place] [address] [place] [id number] [place] [address] 75623- 8887 Mar, Major depressive disorder, recurrent, moderate F33.1 ; Anxiety disorder, unspecified F41.9 and 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 [place] [address] [place] [address] 63808- 4359 Mar, [place] [address] [id number] [place] [address] 58504- 1203 Feb, Major depressive disorder, recurrent, moderate F33.1 ; Anxiety disorder, unspecified F41.9 and 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 [place] [address] [place] [address] 30241- 3495 Feb, [place] [address] [place] [address] 95673- 9937 Feb, [place] [address] [place] [id number] [place] [address] 42402- 1631 Jan, Major depressive disorder, recurrent, moderate F33.1 ; Generalized anxiety disorder F41.1 and Bipolar disorder, current episode depressed, severe, without psychotic features F31.4 [place] [address], [place] [address]- 0717 Jan, Major depressive disorder, recurrent, moderate F33.1 ; Anxiety disorder, unspecified F41.9 and 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 [place] [address], [place] [address]- 0583 Jan, Bronchitis J40 [place] [address] [place] [id number] [place] [address] 17636- 9284 Jan, [place] [address] [place] [address] 76033- 6372 Jan, [place] [address] [place] [id number] [place] [address] 81685- 2949 Jan, Elbow injury, right, initial encounter S59.901A ; Multiple contusions T14.8 and Cervical strain, acute, initial encounter S16.1XXA [place] [address] [place] [address] 98831- 3506 Dec, Major depressive disorder, recurrent, moderate F33.1 ; Generalized anxiety disorder F41.1 and Bipolar disorder with depression F31.30 [place] [address] [place] [address] 63390- 0566 Dec, [place] [address], [place] [address]- 3743 Dec, [place] [address], [place] [address]- 9913 Dec, [place] [address] [place] [address] 07209- 7038 Dec, [place] [address] [place] [address] 78919- 6777 Dec, Yeast infection B37.9 [place] [id number] [address]- 6041 Dec, Pneumonia of both lungs due to methicillin resistant Staphylococcus aureus (MRSA), unspecified part of lung J15.212 and Benzodiazepine overdose, accidental or unintentional, subsequent encounter T42.4X1D [facility] [id number] [place] [address] 12966- 1107 Dec, [facility] [id number] [place] [address]- 3290 Dec, [place] [address] 29321- 4375 Dec, Knee pain, left M25.562 and Edema, unspecified type R60.9 [place] [id number] [place] [address] 48574- 6306 Dec, [place] [id number] [place] [address] 04198- 8657 Dec, Anxiety disorder, unspecified F41.9 and Bipolar disorder, unspecified F31.9 [place] [address] [id number] [place] [address] 88101- 7321 Nov, Major depressive disorder, recurrent, moderate F33.1 ; Anxiety disorder, unspecified F41.9 and 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 [place] [address] [id number] [place] [address] 49973- 3618 Nov, [place] [id number] [place] [address] 09589- 7424 Nov, Migraine without aura and without status migrainosus, not intractable G43.009 [place] [address] [place] [address] 74379- 2280 Nov, Migraine G43.909 [place] [id number] [place] [address] 49906- 7746 Nov, [place] [id number] [place] [address] 79883- 7736 Nov, Major depressive disorder, recurrent, moderate F33.1 ; Anxiety disorder, unspecified F41.9 and 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 [place] [address] [place] [address] 58081- 6176 Oct, Chronic constipation K59.09 and Obesity, unspecified obesity severity, unspecified obesity type E66.9 [place] [address] [id number] [place] [address] 74753- 8491 Oct, Obesity, unspecified obesity severity, unspecified obesity type E66.9 ; Chronic constipation K59.09 and Anxiety disorder, unspecified F41.9 [place] [id number] [place] [address] 85058- 1369 Oct, [place] [address] 85184- 5047 Sep, Diabetes E11.9 ; Edema, unspecified type R60.9 ; Varicose vein of leg I83.90 and Obesity, unspecified obesity severity, unspecified obesity type E66.9 [place] [id number] [place] [address] 64734- 5691 Sep, Edema, unspecified type R60.9 ; Diabetes E11.9 and Knee pain , left M25.562 [place] [address] [address] [place] [id number] [place] [address] Sep, [place] [address] [address] [place] [id number] [place] [address] Sep, [place] [address] [address] [place] [id number] [place] [address] Sep, Major depressive disorder, recurrent, moderate F33.1 ; Generalized anxiety disorder F41.1 and Bipolar disorder, unspecified F31.9 [place] [address] [address] [place] [id number] [place] [address] Aug, Chondromalacia of left knee M94.262 [place] [address] [address] [place] [id number] [place] [address] Aug, Major depressive disorder, recurrent, moderate F33.1 ; Anxiety disorder, unspecified F41.9 and 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 [facility] [address] [id number] [address] 15 Aug, 2015 [facility] [id number] [place] [address] 60681- 2817 06 Aug, 2015 Osteoarthritis of left knee M17.9 [facility] [id number] [place] [address] 20334- 6050 02 Aug, 2015 [facility] [id number] [place] [address] 96367- 0041 July, Major depressive disorder, recurrent, moderate F33.1 ; Anxiety disorder, unspecified F41.9 and 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 [facility] [id number] [place] [address] 71132- 9762 July, [facility] [id number] [place] [address] 74202- 0224 July, Chronic constipation K59.09 [facility] [id number] [place] [address] 83089- 4851 Jun, [facility] [id number] [place] [address] 39034- 0321 15 Jun, 2015 [facility] [address] [address] 7957 14 Jun, 2015 Osteoarthritis of left knee M17.9 [facility] [id number] [address] 3438 Jun, [facility] [id number] [place] [address] 44507- 2971 Jun, Generalized anxiety disorder F41.1 ; Bipolar disorder, unspecified F31.9 and Major depressive disorder, recurrent, moderate F33.1 [facility] [address] [address] 7095 07 Jun, 2015 Migraine G43.909 [facility] [id number] [place] [address] 75350- 5717 Jun, Left knee pain M25.562 ; Chronic constipation K59.09 ; Dry mouth R68.2 ; Yeast vaginitis B37.3 and Memory loss R41.3 [facility] [id number] [place] [address] 78291- 3829 Jun, [facility] [address] 61649- 2410 May, [facility] [address] 60600- 5117 May, [facility] [address] 86486- 4814 May, [facility] [address] 54716- 2102 May, [facility] [address] 42102- 5492 May, Acute bronchitis with COPD J44.0 ; Knee pain, left M25.562 and Encounter for tobacco use cessation counseling Z71.6 [facility] [address] 25991- 5254 May, [facility] [address] 25613- 2966 Apr, Diabetes E11.9 ; TMJ (sprain of temporomandibular joint) S03.4XXA ; Tobacco abuse Z72.0 ; Migraine G43.909 and Anxiety F41.9 [facility] [id number] [place] [address] 42716- 9347 Apr, Generalized anxiety disorder F41.1 and Bipolar disorder, unspecified F31.9 [facility] [id number] [place] [address] 36428- 3918 Apr, Major depressive disorder, recurrent, moderate F33.1 ; Anxiety disorder, unspecified F41.9 and 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 [facility] [id number] [place] [address] 31528- 7476 04 Apr, 2015 [facility] [id number] [place] [address] 38094- 7416 Mar, [facility] [id number] [place] [address] 86901- 1636 Feb, [facility] [id number] [place] [address] 38277- 2691 Feb, Major depressive disorder, recurrent, moderate F33.1 ; Anxiety disorder, unspecified F41.9 and 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 [facility] [id number] [place] [address] 86924- 7609 Feb, [facility] [id number] [place] [address] 08632- 5022 Feb, Generalized anxiety disorder F41.1 and Bipolar disorder, unspecified F31.9 [facility] [id number] [place] [address] 06396- 8201 Jan, [facility] [id number] [place] [address] 87703- 0722 18 Jan, 2015 [facility] [id number] [place] [address] 43513- 7704 Jan, Bipolar disorder, unspecified F31.9 and Generalized anxiety disorder F41.1 [facility] [id number] [place] [address] 57573- 5908 Dec, [facility] [id number] [place] [address] 83059- 4627 14 Dec, 2014 Bipolar disorder, unspecified F31.9 and Generalized anxiety disorder F41.1 [facility] [id number] [place] [address] 46631- 5485 Dec, Generalized anxiety disorder F41.1 and Major depressive disorder, recurrent, moderate F33.1 [facility] [id number] [place] [address] 12992- 2759 Oct, Headache 784.0 ; Cough 786.2 ; Vomiting and diarrhea 787.03 and Dysuria 788.1 [facility] [id number] [place] [address] 64064- 3196 Aug, [facility] [address] 12927- 4318 Aug, Headache 784.0 and Shortness of breath 786.05 [facility] [id number] [place] [address] 07881- 6024 Aug, [facility] [id number] [place] [address] 37962- 3051 Aug, Migraine 346.90 [facility] [id number] [place] [address] 80592- 4479 Jun, [facility] [id number] [place] [address] 15467- 6491 Jun, [facility] [id number] [place] [address] 26940- 6692 May, [facility] [id number] [place] [address] 68029- 9642 May, [facility] [id number] [place] [address] 23864- 1495 May, [facility] [id number] [place] [address] 86811- 9441 May, [facility] [id number] [place] [address] 62164- 4474 May, [facility] [id number] [place] [address] 92489- 1325 May, [facility] [id number] [place] [address] 01027- 8269 Apr, [facility] [place] [facility] [address] [id number] [place] [address]- 2021 Apr, 2014 [facility] [place] [facility] [address] [id number] [place] [address]- 3254 Apr, 2014 [facility] [place] [facility] [address] [id number] [place] [address]- 9695 Apr, 2014 [facility] [place] [facility] [address] [id number] [place] [address]- 1146 Apr, [facility] [place] [facility] [address] [id number] [place] [address]- 8107 Mar, [facility] [place] [facility] [address] [id number] [place] [address]- 5079 Mar, [facility] [place] [facility] [address] [id number] [place] [address]- 7658 Mar, [facility] [place] [facility] [address] [id number] [place] [address]- 0875 Mar, [facility] [place] [facility] [address] [id number] [place] [address]- 2382 Feb, [facility] [place] [facility] [address] [id number] [place] [address]- 1395 Feb, [facility] [place] [facility] [address] [id number] [place] [address]- 6476 18 Feb, 2014 [facility] [place] [facility] [address] [id number] [place] [address]- 7030 18 Feb, 2014 [facility] [place] [facility] [address] [id number] [place] [address]- 8689 16 Feb, 2014 [facility] [place] [facility] [address] [id number] [place] [address]- 0120 16 Feb, 2014 [facility] [place] [facility] [address] [id number] [place] 9329 11 Feb, 2014 [facility] [place] [facility] [address] [id number] [place] [address]- 9057 Feb, [facility] [place] [facility] [address] [id number] [place] [address]- 5255 Feb, [facility] [place] [facility] [address] [id number] [place] [address]- 9232 Feb, [facility] [place] [facility] [address] [id number] [place] 5728 Feb, [facility] [place] [facility] [address] [id number] [place] [address]- 3078 Feb, [facility] [place] [facility] [address] [id number] [place] [address]- 9148 Jan, [facility] [place] [facility] [address] [id number] [place] [address]- 2666 Jan, [facility] [place] [facility] [address] [id number] [place] [address]- 5496 Dec, [facility] [place] [facility] [address] [id number] [place] [address]- 1208 Dec, [facility] [place] [facility] [address] [id number] [place] [address]- 0001 Dec, [facility] [place] [facility] [address] [id number] [place] [address]- 2857 Dec, [facility] [place] [facility] [address] [id number] [place] [address]- 8977 Dec, [facility] [place] [facility] [address] [id number] [place] [address]- 1322 Dec, [facility] [place] [facility] [address] [id number] [place] [address]- 7354 Sep, [facility] [place] [facility] [address] [id number] [place] 7165 Sep, [facility] [place] [facility] [address] [id number] [place] 8876 Sep, [facility] [place] [facility] [address] [id number] [place] [address]- 2506 Sep, 2013 [facility] [place] [facility] [address] [id number] [place] [address]- 5684 Sep, 2013 [facility] [place] [facility] [address] [id number] [place] [address]- 9714 Sep, 2013 [facility] [place] [facility] [address] [id number] [place] [address]- 5920 Sep, 2013 [facility] [place] [facility] [address] [id number] [place] [address]- 7277 Sep, 2013 [facility] [place] [facility] [address] [id number] [place] [address]- 6581 Sep, 2013 [facility] [place] [facility] [address] [id number] [place] [address]- 0332 Sep, 2013 [facility] [place] [facility] [address] [id number] [place] [address]- 8709 24 Aug, 2013 [facility] [place] [facility] [address] [id number] [place] [address]- 5844 Aug, [facility] [place] [facility] [address] [id number] [place] [address]- 3463 Aug, [facility] [place] [facility] [address] [id number] [place] [address]- 8243 Aug, [facility] [place] [facility] [address] [id number] [place] [address]- 0690 Aug, [facility] [place] [facility] [address] [id number] [place] [address]- 8337 14 Aug, 2013 [facility] [place] [facility] [address] [id number] [place] [address]- 4108 Aug, [facility] [place] [facility] [address] [id number] [place] [address]- 4780 Aug, [facility] [place] [facility] [address] [id number] [place] [address]- 5774 Aug, [facility] [place] [facility] [address] [id number] [place] [address]- 3512 Aug, [facility] [place] [facility] [address] [id number] [place] [address]- 1336 Aug, [facility] [place] [facility] [address] [id number] [place] [address]- 1328 Aug, [facility] [place] [facility] [address] [id number] [place] [address]- 1091 Aug, [facility] [place] [facility] [address] [id number] [place] [address]- 0966 July, [facility] [place] [facility] [address] [id number] [place] [address]- 7236 July, [facility] [place] [facility] [address] [id number] [place] [address]- 1519 July, [facility] [place] [facility] [address] [id number] [place] [address]- 6525 July, [facility] [place] [facility] [address] [id number] [place] [address]- 2091 July, [facility] [place] [facility] [address] [id number] [place] [address]- 1586 July, [facility] [place] [facility] [address] [id number] [place] [address]- 0992 July, [facility] [place] [facility] [address] [id number] [place] [address]- 3323 Jun, [facility] [place] [facility] [address] [id number] [place] [address]- 4733 Jun, [facility] [place] [facility] [address] [id number] [place] [address]- 1515 Jun, [facility] [place] [facility] [address] [id number] [place] [address]- 2957 Jun, [facility] [place] [facility] [address] [id number] [place] [address]- 9600 16 Jun, 2013 [facility] [place] [facility] [address] [id number] [place] [address]- 4657 08 Jun, 2013 [facility] [place] [facility] [address] [id number] [place] [address]- 8800 08 Jun, 2013 [facility] [place] [facility] [address] [id number] [place] [address]- 6621 17 May, 2013 [facility] [place] [facility] [address] [id number] [place] [address]- 6667 17 May, 2013 [facility] [place] [facility] [address] [id number] [place] [address]- 7673 14 May, 2013 [facility] [place] [facility] [address] [id number] [place] [address]- 0050 14 May, 2013 [facility] [place] [facility] [address] [id number] [place] [address]- 4661 13 May, 2013 [facility] [place] [facility] [address] [id number] [place] [address]- 1773 13 May, 2013 [facility] [place] [facility] [address] [id number] [place] [address]- 7198 10 May, 2013 [facility] [place] [facility] [address] [facility] [id number] [place] [address]- 0201 10 May, 2013 [facility] [place] [facility] [address] [id number] [place] [address]- 7019 07 May, 2013 [facility] [place] [facility] [address] [id number] [place] [address]- 9058 26 Apr, 2013 [facility] [place] [facility] [address] [id number] [place] [address]- 5808 26 Apr, 2013 [facility] [place] [facility] [address] [id number] [place] [address]- 4040 18 Apr, 2013 [facility] [place] [facility] [address] [id number] [place] [address]- 0699 Apr, [facility] [place] [facility] [address] [id number] [place] [address]- 6590 Apr, [facility] [place] [facility] [address] [id number] [place] [address]- 4649 Apr, [facility] [place] [facility] [address] [id number] [place] [address]- 7510 Apr, [facility] [place] [facility] [address] [id number] [place] [address]- 1650 Apr, [facility] [place] [facility] [address] [id number] [place] [address]- 6167 Apr, [facility] [place] [facility] [address] [id number] [place] [address]- 4740 Apr, [facility] [place] [facility] [address] [id number] [place] [address]- 6822 Mar, [facility] [place] [facility] [address] [id number] [place] [address]- 5076 Mar, [facility] [place] [facility] [address] [id number] [place] [address]- 0133 Mar, [facility] [place] [facility] [address] [id number] [place] [address]- 3488 Mar, [facility] [place] [facility] [address] [id number] [address]- 3314 Mar, [facility] [place] [facility] [address] [id number], [place] [address]- 0122 Mar, [facility] [place] [facility] [address] [id number] [place] [address]- 7492 Mar, [facility] [place] [facility] [address] [id number], [place] [address]- 4501 Mar, [facility] [place] [facility] [address] [id number] [place] [address]- 6875 Feb, [facility] [place] [facility] [address] [id number] [place] [address]- 0766 10 Feb, 2013 [facility] [place] [facility] [address] [id number] [place] [address]- 5152 18 Jan, 2013 [facility] [place] [facility] [address] [id number] [place] [address]- 6623 18 Jan, 2013 [facility] [place] [facility] [address] [id number] [place] [address]- 6863 15 Jan, 2013 [facility] [place] [facility] [address] [id number] [place] [address]- 3661 15 Jan, 2013 [facility] [place] [facility] [address] [id number] [place] [address]- 9446 Jan, [facility] [place] [facility] [address] [id number] [place] [address]- 6717 Jan, [facility] [place] [facility] [address] [facility] [id number] [place] [address]- 0280 Jan, [facility] [place] [facility] [address] [id number] [place] [address]- 4716 05 Jan, 2013 [facility] [place] [facility] [address] [id number] [place] [address]- 1034 Dec, [facility] [place] [facility] [address] [facility] [id number] [place] [address]- 2329 Dec, [facility] [place] [facility] [address] [id number] [place] [address]- 0460 10 Dec, 2012 [facility] [place] [facility] [address] [id number], [place] [address]- 2549 20 Nov, 2012 [facility] [place] [facility] [address] [id number] [place] [address]- 9084 13 Nov, 2012 [facility] [place] [facility] [address] [facility] [id number] [place] [address]- 0208 12 Nov, 2012 [facility] [place] [facility] [address] [id number], [place] [address]- 8228 Nov, [facility] [place] [facility] [address] [id number] [place] [address]- 0813 Nov, [facility] [place] [facility] [address] [id number] [place] [address]- 4373 Nov, [facility] [place] [facility] [address] [id number] [place] [address]- 8079 Oct, [facility] [place] [facility] [address] [id number] [place] [address]- 1478 Oct, [facility] [address] [id number] [place] [address]- 5234 Sep, [facility] [place] [facility] [address] [id number] [place] [address]- 3576 Sep, [facility] [address] [id number] [place] [address]- 2487 Sep, [facility] [address] [id number] [place] [address]- 0308 Sep, [facility] [place] [facility] [address] [id number] [place] [address]- 7031 Sep, [facility] [place] [facility] [address] [id number] [place] [address]- 0700 Sep, [facility] [place] [facility] [address] [id number] [place] [address]- 8119 Sep, [facility] [place] [facility] [address] [id number] [place] [address]- 0618 Aug, [facility] [place] [facility] [address] [id number] [place] [address]- 3215 Aug, [facility] [place] [facility] [address] [id number] [place] [address]- 4688 Aug, [facility] [place] [facility] [address] [id number] [place] [address]- 0613 Aug, [facility] [place] [facility] [address] [id number] [place] [address]- 7335 Aug, [facility] [address] [id number] [place] [address]- 3981 Aug, [facility] [address] [id number] [place] [address]- 9167 July, [facility] [address] [id number] [place] [address]- 4565 July, [facility] [address] [id number] [place] [address]- 9674 July, [facility] [address] [id number] [place] [address]- 9165 July, [facility] [address] [id number] [place] [address]- 4642 July, [facility] [address] [id number] [place] [address]- 6642 July, [facility] [address] [id number] [place] [address] Jun, [facility] [place] [facility] [address] [id number] [place] [address] Jun, [facility] [place] [facility] [address] [id number] [place] [address] Jun, [facility] [place] [facility] [address] [id number] [place] [address] Jun, [facility] [place] [facility] [address] [id number] [place] [address] Jun, [facility] [place] [facility] [address] [id number] [place] [address] Jun, [facility] [place] [facility] [address] [id number] [place] [address] Jun, [facility] [place] [facility] [address] [id number] [place] [address] May, [facility] [place] [facility] [address] [id number] [place] [address] May, [facility] [address] [id number] [place] [address] Apr, 2012 [facility] [place] [facility] [address] [id number] [place] [address] Apr, [facility] [place] [facility] [address] [id number] [place] [address] Apr, 2012 [facility] [place] [facility] [address] [id number] [place] [address] Apr, [facility] [place] [facility] [address] [id number] [place] [address] Apr, [facility] [address] [facility] [id number] [place] [address] 08 Apr, 2012 [facility] [place] [facility] [address] [id number] [place] [address] Apr, [facility] [place] [facility] [address] [id number] [place] [address] Apr, [facility] [place] [facility] [address] [facility] [id number], [place] [address] 06 Apr, 2012 [facility] [place] [facility] [address] [facility] [id number] [place] [address] Apr, [facility] [place] [facility] [address] [id number], [place] [address] Apr, [facility] [place] [facility] [address] [id number] [place] [address] Mar, [facility] [place] [facility] [address] [id number], [place] [address] Mar, [facility] [place] [facility] [address] [facility] [id number], [place] [address] Mar, [facility] [place] [facility] [address] [id number], [place] [address] Mar, [facility] [address] [id number] [place] [address] Mar, [facility] [address] [id number] [place] [address] Mar, [facility] [address] [id number] [place] [address] 15 Mar, 2012 [facility] [address] [id number] [place] [address] 15 Mar, 2012 [facility] [address] [id number] [place] [address] Mar, [facility] [address] [id number] [place] [address] Mar, [facility] [address] [id number] [place] [address] Mar, [facility] [address] [id number] [place] [address] Mar, [facility] [address] [id number] [place] [address] Mar, [facility] [address] [id number] [place] [address] Feb, [facility] [address] [id number] [place] [address] Feb, [facility] [place] [facility] [address] [id number] [place] [address] Feb, [facility] [place] [facility] [address] [id number] [place] [address] Feb, [facility] [place] [facility] [address] [id number] [place] [address] Feb, [facility] [address] [id number] [place] [address] Feb, [facility] [place] [facility] [address] [id number] [place] [address] Feb, [facility] [place] [facility] [address] [id number] [place] [address] Feb, [facility] [place] [facility] [address] [id number] [place] [address] Feb, [facility] [place] [facility] [address] [id number] [place] [address] Feb, [facility] [place] [facility] [address] [id number] [place] [address]- [address] Feb, [facility] [place] [facility] [address] [id number] [place] [address] Feb, [facility] [place] [facility] [address] [id number] [place] [address]- [address] Feb, [facility] [place] [facility] [address] [id number] [place] [address] Feb, [facility] [place] [facility] [address] [id number] [place] [address] Feb, [facility] [place] [facility] [address] [id number] [place] [address] Jan, [facility] [place] [facility] [address] [facility] [id number] [place] [address] Jan, [facility] [place] [facility] [address] [id number] [place] [address] Jan, [facility] [place] [facility] [address] [id number] [place] [address] Jan, [facility] [place] [facility] [address] [id number] [place] [address]- [address] Dec, [facility] [place] [facility] [address] [id number] [place] [address]- [address] Dec, [facility] [place] [facility] [address] [id number] [place] [address] Dec, [facility] [place] [facility] [address] [id number] [place] [address]- [address] Dec, [facility] [place] [facility] [address] [id number] [place] [address] Dec, [facility] [place] [facility] [address] [id number] [place] [address]- [address] Dec, [facility] [place] [facility] [address] [address] [id number] [place] [address] Dec, [facility] [place] [facility] [address] [id number] [place] [address] 16 Dec, 2011 [facility] [place] [facility] [address] [id number] [place] [address] Dec, [facility] [place] [facility] [address] [id number] [place] [address] 04 Dec, 2011 [facility] [place] [facility] [address] [id number], [place] [address] 03 Dec, 2011 [facility] [place] [facility] [address] [id number] [place] [address] 25 Sep2011 [facility] [place] [facility] [address] [id number], [place] [address] 24 Sep, 2011 [facility] [place] [facility] [address] [id number][place] [address] 20 Sep, 2011 [facility] [place] [facility] [address] [id number], [place] [address] 19 Sep, 2011 [facility] [place] [facility] [address] [id number] [place] [address] 17 Sep, 2011 [facility] [place] [facility] [address] [id number], [place] [address] 16 Sep, 2011 [facility] [place] [facility] [address] [id number], [place] [address] 14 Sep, 2011 [facility] [place] [facility] [address] [id number] [place] [address] 13 Nov, 2011 [facility] [place] [facility] [address] [id number] [place] [address] 1816 12 Sep, 2011 [facility] [place] [facility] [address] [id number] [place] [address] 9[address] 07 Nov, 2011 [facility] [place] [facility] [address] [id number] [place] [address] 06 Sep, 2011 [facility] [place] [facility] [address] [id number] [place] [address] 2546 06 Nov, 2011 [facility] [place] [facility] [address] [id number] [place] [address]957 05 Nov, 2011 [facility] [place] [facility] [address] [id number] [place] [address] 1616 29 Oct, 2011 [facility] [place] [facility] [address] [id number] [place] [address] 29 Oct, 2011 [facility] [place] [facility] [address] [id number] [place] [address] 2547 Oct, [facility] [place] [facility] [address] [id number] [place] [address] 66[address] 28 Oct, 2011 [facility] [place] [facility] [address] [id number] [place] [address] 9671 23 Oct, 2011 [facility] [place] [facility] [address] [id number] [place] [address] 2546 Oct, [facility] [place] [facility] [address] [id number] [place] [address] 254 20 Oct, 2011 [facility] [place] [facility] [address] [id number] [place] [address] 4686 16 Oct, 2011 [facility] [place] [facility] [address] [id number] [place] [address] 2546 15 Oct, 2011 [facility] [place] [facility] [address] [id number] [place] [address] 1116 13 Oct, 2011 [facility] [place] [facility] [address] [id number] [place] [address] 1168 Oct, [facility] [place] [facility] [address] [id number] [place] [address] 10[address] Sep, [facility] [place] [facility] [address] [id number] [place] [address] 34[address] Sep, [facility] [place] [facility] [address] [id number] [place] [address] 1710 Sep, [facility] [place] [facility] [address] [id number] [place] [address] 0[address] Sep, [facility] [place] [facility] [address] [id number] [place] [address] Sep, [facility] [place] [facility] [address] [id number] [place] [address] 84[address] Sep, [facility] [place] [facility] [address] [id number] [place] [address] 3054 Aug, [facility] [place] [facility] [address] [id number] [place] [address] July, [facility] [place] [facility] [address] [id number] [place] [address] July, [facility] [place] [facility] [address] [id number] [place] [address] 38[address] Jun, [facility] [place] [facility] [address] [id number] [place] [address] 6[address] Jun, [facility] [place] [facility] [address] [id number] [place] [address] Jun, [facility] [place] [facility] [address] [id number] [place] [address] 4401 Jun, [facility] [place] [facility] [address] [id number] [place] [address] Jun, [facility] [place] [facility] [address] [id number] [place] [address] 6164 10 Jun, 2011 [facility] [address] [id number] [place] [address] 2933 09 Jun, 2011 [facility] [place] [facility] [address] [id number] [place] [address] 08 Jun, 2011 [facility] [place] [facility] [address] [facility] [id number] [place] [address] Jun, [facility] [place] [facility] [address] [id number] [place] [address]255 Jun, [facility] [place] [facility] [address] [id number] [place] [address] 1572 Jun, [facility] [place] [facility] [address] [facility] [id number] [place] [address] 8264 19 May, 2011 [facility] [place] [facility] [address] [facility] [id number] [place] [address] 3342 16 May, 2011 [facility] [place] [facility] [address] [id number] [place] [address] 3425 14 May, 2011 [facility] [place] [facility] [address] [facility] [id number] [place] [address] 8660 06 May, 2011 [facility] [place] [facility] [address] [facility] [id number] [place] [address] 5563 28 Apr, 2011 [facility] [place] [facility] [address] [id number] [place] [address] 1413 28 Apr, 2011 [facility] [place] [facility] [address] [facility] [id number] [place] [address] 4925 27 Apr, 2011 [facility] [place] [facility] [address] [id number] [place] [address]- 7843 23 Apr, 2011 [facility] [place] [facility] [address] [id number] [place] [address] 5258 23 Apr, 2011 [facility] [place] [facility] [address] [facility] [id number] [place] [address] 3150 22 Apr, 2011 [facility] [place] [facility] [address] [id number] [place] [address] 4547 Apr, [facility] [address] [id number] [place] [address] 5139 Apr, [facility] [place] [facility] [address] [id number] [place] [address] 1065 Mar, [facility] [address] [id number] [place] [address] Mar, [facility] [address] [id number] [place] [address] 3437 Mar, [facility] [address] [id number] [place] [address]- 0997 Mar, [facility] [address] [id number] [place] [address] 2994 Mar, [facility] [address] [id number] [place] [address] 5204 Mar, [facility] [address] [id number] [place] [address] 0640 Mar, [facility] [address] [id number] [place] [address]- 0768 Mar, [facility] [place] [facility] [address] [id number] [place] [address]- 9494 Mar, [facility] [address] [id number] [place] [address]- 6289 Mar, [facility] [place] [facility] [address] [id number] [place] [address]- 9854 Mar, [facility] [place] [facility] [address] [id number] [place] [address]- 1397 Mar, [facility] [place] [facility] [address] [id number] [place] [address]- 3651 Mar, [facility] [place] [facility] [address] [id number] [place] [address]- 7566 Mar, [facility] [place] [facility] [address] [id number] [place] [address]- 2970 Mar, [facility] [place] [facility] [address] [id number] [place] [address]- 0404 Mar, [facility] [place] [facility] [address] [id number] [place] [address]- 3852 Feb, [facility] [place] [facility] [address] [id number] [place] [address]- 3839 Feb, [facility] [place] [facility] [address] [id number] [place] [address]- 0900 Feb, [facility] [place] [facility] [address] [id number] [place] [address]- 9390 Jan, [facility] [place] [facility] [address] [id number] [place] [address]- 3879 Jan, [facility] [place] [facility] [address] [id number] [place] [address]- 2384 Jan, [facility] [place] [facility] [address] [id number] [place] [address]- 5066 Dec, [facility] [place] [facility] [address] [id number] [place] [address]- 6955 Dec, [facility] [place] [facility] [address] [id number] [place] [address]- 7512 Nov, [facility] [place] [facility] [address] [id number] [place] [address]- 1059 Oct, [facility] [place] [facility] [address] [id number] [place] [address]- 1163 Oct, [facility] [place] [facility] [address] [id number] [place] [address]- 4131 Oct, [facility] [place] [facility] [address] [id number] [place] [address]- 6125 Sep, [facility] [place] [facility] [address] [facility] [id number] [place] [address]- [address]46 Apr, [facility] [address] [facility] [id number] [place] [address]- [address]46 Feb, [facility] [address] [facility] [id number] [place] [address]- 2546 Jan, IMMUNIZATIONS No Known Immunizations SOCIAL HISTORY Never Assessed REASON FOR VISIT [place] [place] VITAL SIGNS MEDICATIONS No [...] 2/2 Benzos OD, pneumonia MRSA, MAYRA, Hypokalemia-- [facility] 12/20/2015 Hospitalization History COPD exacerbation, Asthma-[facility] 09/21/16 Hospitalization History COPD-[facility] 12/30/2016 [facility] around 2006 or so. Hospitalization History for COPD x2 Mar 2017 Hospitalization History Upper GI bleed at apr 2017 Hospitalization History [facility], [place]- COPD Exacerbation, diarrhea 05/23/2017 Hospitalization History COPD exacerbation-[facility] 06/13/17 Hospitalization History [facility] 09/09/2017 Hospitalization History COPD-UTI--[facility] 11/2017
[2018-06-30 11:50] LABS: BACTERIA,URINE FEW /HPF; RBC,URINE 0-2 /HPF
[2018-06-30 11:51] LABS: ALANINE AMINOTRANSFERASE 18 U/L (0-55); ALBUMIN 4.2 GM/DL (3.2-4.5); ALKALINE PHOSPHATASE 68 U/L (40-136); BILIRUBIN,TOTAL 0.5 MG/DL (0.1-1.0); BUN/CREATININE RATIO 14; CALCIUM 9.6 MG/DL (8.5-10.1); CARBON DIOXIDE 27 MMOL/L (21-32); CHLORIDE 106 MMOL/L (98-107); CREATININE SERUM 0.76 MG/DL (0.60-1.30); GFR ESTIMATED > 60; GLUCOSE 109 MG/DL (70-105); MAGNESIUM 1.7 MG/DL (1.8-2.4); POTASSIUM 3.6 MMOL/L (3.6-5.0); SODIUM 143 MMOL/L (135-145); TOTAL PROTEIN 6.8 GM/DL (6.4-8.2)
[2018-06-30 11:52] LABS: AMPHETAMINE SCREEN, URINE NEGATIVE (NEGATIVE); BARBITURATE SCREEN URINE NEGATIVE (NEGATIVE); BENZODIAZEPINES SCREEN URINE NEGATIVE (NEGATIVE); CANNABINOID SCREEN, URINE NEGATIVE (NEGATIVE); COCAINE SCREEN URINE NEGATIVE (NEGATIVE); METHADONE STAT NEGATIVE (NEGATIVE); METHAMPHETAMINE SCREEN URINE S NEGATIVE (NEGATIVE); OPIATE SCREEN URINE NEGATIVE (NEGATIVE); OXYCODONE STAT NEGATIVE (NEGATIVE); PROPOXYPHENE STAT NEGATIVE (NEGATIVE); TRICYCLIC ANTIDEPRESSANTS SCRE NEGATIVE (NEGATIVE)
[2018-06-30] MEDS ORDERED: KETOROLAC 30 MG/ML VIAL IVP ONE (12:15)
--- NOTE | 2018-06-30 13:02 | Diagnostic Imaging Report ---
INDICATION: Shortness of air. COMPARISON: 05/28/2018. FINDINGS: Frontal and lateral views of the chest demonstrate normal heart size and pulmonary vascularity. The lungs are clear. There are no signs of infiltrate, pleural effusions or pneumothoraces. The visualized osseous structures show no acute abnormalities. IMPRESSION: 1. No acute process. No signs of infiltrates, effusions or pneumothoraces. Dictated by: Dictated on workstation # [id number]
[2018-06-30] MEDS ORDERED: CEPH-507 PO (13:12)
[2018-06-30 13:34] VITALS: BP 121/92
== END 2018-06-30 13:34 | disposition home or self-care (01) ==
LOC: EDUNIT# 10:51 → ER 10:52
DX: F41.9 Anxiety disorder, unspecified (principal); J44.9 Chronic obstructive pulmonary disease, unspecified; G47.30 Sleep apnea, unspecified; I42.9 Cardiomyopathy, unspecified; I25.10 Atherosclerotic heart disease of native coronary artery without angina pectoris; E78.00 Pure hypercholesterolemia, unspecified; I10 Essential (primary) hypertension; G43.909 Migraine, unspecified, not intractable, without status migrainosus; F15.10 Other stimulant abuse, uncomplicated; F12.10 Cannabis abuse, uncomplicated; K21.0 Gastro-esophageal reflux disease with esophagitis; E11.9 Type 2 diabetes mellitus without complications; F31.9 Bipolar disorder, unspecified; D64.9 Anemia, unspecified; Z88.8 Allergy status to other drugs, medicaments and biological substances; Z99.81 Dependence on supplemental oxygen; Z80.1 Family history of malignant neoplasm of trachea, bronchus and lung; Z82.49 Family history of ischemic heart disease and other diseases of the circulatory system; Z91.5 Personal history of self-harm; Z87.19 Personal history of other diseases of the digestive system; Z86.19 Personal history of other infectious and parasitic diseases; Z95.9 Presence of cardiac and vascular implant and graft, unspecified; Z87.01 Personal history of pneumonia (recurrent); Z79.82 Long term (current) use of aspirin; Z79.51 Long term (current) use of inhaled steroids; Z79.4 Long term (current) use of insulin; Z79.52 Long term (current) use of systemic steroids; Z77.22 Contact with and (suspected) exposure to environmental tobacco smoke (acute) (chronic)
CPT/HCPCS: 36415; 36600; 71046; 80053; 80306; 81000; 82805; 83735; 83880; 85025; 85379; 87077; 87088; 87186; 94640; 94644

== ENCOUNTER 2018-06-30 17:06 | Emergency (ER) | payer SELFPAY ==
[~2018-06-30] VITALS: Ht 175.3 cm; Wt 90.7 kg
[2018-06-30 17:27] VITALS: BP 147/104
--- NOTE | 2018-06-30 18:20 | NUR ---
Pt taken to room. Pt O2 sat 100% on 4L NC at this time.
--- NOTE | 2018-06-30 18:57 | ED Respiratory ---
General Chief Complaint: Respiratory Problems Stated Complaint: SOA Nursing Triage Note: PT AMB TO TRIAGE WITH COMPLAINT OF SOA. PT STATES SHE WAS SEEN HERE EARLIER TODAY FOR SAME SYMPTOMS, GIVEN BREATHING TREATMENT AND SENT HOME. STATES SHE TRIED TREATMENTS AT HOME AND THEY DID NOT HELP. Source: patient Exam Limitations: no limitations History of Present Illness Date Seen by Provider: Jun 30, 2018 Time Seen by Provider: 18:56 Initial Comments To ER with reports of shortness of breath. She was seen here earlier today for the same. She has oxygen at home, nebulizer at home. She reports worsening shortness of breath and a headache this evening. Timing/Duration: constant Severity: moderate Associated Symptoms: cough, shortness of breath, wheezing Allergies and Home Medications Allergies Coded Allergies: buspirone (Verified Allergy, Mild, 05/02/17) Made"legs Shaky" amitriptyline (Verified Allergy, Unknown, 05/02/17) " MAKES ME DO WEIRD THINGS LIKE WALK IN MY SLEEP AND HAVE HALLUCINATIONS." Home Medications Albuterol Sulfate 1 Puff Puff, 2 PUFF IH Q4H PRN for SHORTNESS OF BREATH, ( Reported) Aspirin 81 Mg Tablet.dr, 81 MG PO DAILY, (Reported) Cephalexin 500 Mg Capsule, 500 MG PO QID Prescribed by: RODY ALDANA on 06/01/18 0948 Cephalexin 500 Mg Capsule, 500 MG PO TID Prescribed by: ELLEN ACE on 06/30/18 1312 Fluticasone/Salmeterol 1 Each Blst.w.dev, 1 PUFF IH BID, (Reported) Furosemide 20 Mg Tablet, 20 MG PO DAILY, (Reported) Glimepiride 1 Mg Tablet, 1 MG PO DAILY PRN for WHEN TAKING PREDNISONE, (Reported ) Ipratropium/Albuterol Sulfate 3 Ml Ampul.neb, 3 ML IH QID PRN for SHORTNESS OF BREATH, (Reported) Metoprolol Tartrate 25 Mg Tablet, 12.5 MG PO BID, (Reported) TAKES 1/2 (25MG) TABLET Prednisone 10 Mg Tab.ds.pk, 10 MG PO DAILY Take 6 tabs(60mg)daily,decrease by 1 tab(10MG)daily. Prescribed by: RODY ALDANA on 06/01/18 0948 Sacubitril/Valsartan 1 Each Tablet, 1 TAB PO BID, (Reported) Tiotropium [place] 1 Inh Aerp, 1 CAP IH DAILY, (Reported) Patient Home Medication List Home Medication List Reviewed: Yes Review of Systems Review of Systems Constitutional: see HPI EENTM: see HPI Respiratory: see HPI, cough, short of breath Genitourinary: no symptoms reported Musculoskeletal: no symptoms reported Skin: no symptoms reported Psychiatric/Neurological: No Symptoms Reported Past Cvqhcyq-Kdbetb-Tqkngh Hx Patient Social History Alcohol Use: Denies Use Recreational Drug Use: No (4 YRS AGO) Drug of Choice: + IV METH, ALSO SMOKES IT; MULTIPLE BENZODIAZEPINE OD'S Smoking Status: Current Everyday Smoker Type Used: Cigarettes 2nd Hand Smoke Exposure: Yes Recent Foreign Travel: No Contact w/Someone Who Travel: No Recent Infectious Disease Expo: No Recent Hopitalizations: Yes Physical Abuse: No Sexual Abuse: No Immunizations Up To Date Tetanus Booster (TDap): Unknown Date of Pneumonia Vaccine: Apr 30, 2018 Date of Influenza Vaccine: Apr 30, 2018 Seasonal Allergies Seasonal Allergies: No Past Medical History Surgeries: Yes (EGD/COLONOSCOPY; CARDIAC CATH 09/18/17--NO INTERVENTION) Cardiac Respiratory: Yes (O2 AT 2-3L/NC) Pneumonia, Chronic Bronchitis, Sleep Apnea, COPD Currently Using CPAP: No Currently Using BIPAP: Yes Cardiac: Yes Cardiomyopathy, Coronary Artery Disease, High Cholesterol, Hypertension Neurological: Yes Headaches /Migraines 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 Disorders: No 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 Disorders: Denies [employer] History: Menopausal Sexually Transmitted Disease: No HIV/AIDS: No Genitourinary: No Gastrointestinal: Yes (GASTRITIS AND ESOPHAGEAL CANDIDIASIS 04/2017) Gastroesophageal Reflux, Gastrointestinal Bleed, Chronic Constipation, Chronic Diarrhea, Esophagitis, Ulcer Musculoskeletal: Yes (chronic shoulder and neck pain) Endocrine: Yes (DM- only while on steriods per pt) Diabetes, Non-Insulin dep HEENT: No Cancer: No Psychosocial: Yes (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; POLYSUBSTANCE ABUSE) Sleep Difficulties, Anxiety, Suicide Attempts, Bipolar, Depression Integumentary: No Blood Disorders: Yes (ANEMIA) Adverse Reaction/Blood Tranf: No Family Medical History Cancer 03 MOTHER, Onset:66 (LUNG ) 09 BROTHER (LUNG ) Congestive heart failure 03 FATHER Heart Disease, Cancer Physical Exam Vital Signs - First Documented 06/30/18 17:27 Pulse 98 Resp 20 B/P (MAP) 147/104 (118) Pulse Ox 99 O2 Delivery Nasal Cannula O2 Flow Rate 4.00 Capillary Refill : Less Than 3 Seconds Height: 5'9.00" Weight: 200lbs. 4.0oz. 90.279696ic; 28.7 BMI Method:Stated General Appearance: WD/WN, no apparent distress Eyes: Bilateral Eye Normal Inspection, Bilateral Eye PERRL, Bilateral Eye EOMI HEENT: PERRL/EOMI, normal ENT inspection Neck: non-tender, full range of motion Respiratory: no accessory muscle use, decreased breath sounds, accessory muscle use, wheezing Neurologic/Psychiatric: alert, normal mood/affect, oriented x 3 Skin: normal color, warm/dry Progress/Results/Core Measures Suspected Sepsis Recent Fever Within 48 Hours: No Infection Criteria Present: None New/Unexplained Altered Menta: No Sepsis Screen: No Definite Risk SIRS Temperature: Pulse: 98 Respiratory Rate: 20 Blood Pressure 147 /104 Mean: 118 Results/Orders My Orders Orders - ELLEN ACE APRN Arterial Blood Gas (06/30/18 18:50) Ed Iv/Invasive Line Start (06/30/18 18:50) Albuterol/Ipra Inhalation Soln (Duoneb I (06/30/18 19:00) Ketorolac Injection (Toradol Injection) (06/30/18 19:00) Prochlorperazine Injection (Compazine In (06/30/18 19:00) Diphenhydramine Injection (Benadryl Inje (06/30/18 19:00) Svn Small Volume Nebulizer (06/30/18 18:50) Ns Iv 500 Ml (Sodium Chloride 0.9%) (06/30/18 19:00) Ketorolac Injection (Toradol Injection) (06/30/18 19:10) Medications Given in ED Current Medications Medications Dose Ordered Sig/Vladimir Route Start Time Stop Time Status Last Admin Dose Admin Albuterol/ Ipratropium 3 ml ONCE ONCE INH 06/30/18 19:00 06/30/18 19:01 DC 06/30/18 19:49 3 ML Diphenhydramine HCl 25 mg ONCE ONCE IVP 06/30/18 19:00 06/30/18 19:01 DC 06/30/18 19:28 25 MG Ketorolac Tromethamine 15 mg ONCE ONCE IVP 06/30/18 19:00 06/30/18 19:01 DC 06/30/18 19:31 15 MG Prochlorperazine Edisylate 10 mg ONCE ONCE IV 06/30/18 19:00 06/30/18 19:01 DC 06/30/18 19:30 10 MG Vital Signs/I&O 06/30/18 17:27 Pulse 98 Resp 20 B/P (MAP) 147/104 (118) Pulse Ox 99 O2 Delivery Nasal Cannula O2 Flow Rate 4.00 Capillary Refill : Less Than 3 Seconds Blood Pressure Mean: 118 Departure Communication (Admissions) pt requested lorazepam. When denied that since shes just been given compazine and benadryl, she states she's leaving AMA. Impression Primary Impression: Left against medical advice Disposition: 07 AGAINST MEDICAL ADVICE Condition: Against Medical Advice Departure-Patient Inst. Referrals: [facility] (PCP) Primary Care Physician ALIZA CARTER (Family) Primary Care Physician ELLEN ACE APRN Jun 30, 2018 18:57
[2018-06-30] MEDS ORDERED: NS IV 500 ML 500 ML IV SCH (19:00)
[2018-06-30] MEDS ORDERED: KETOROLAC 15 MG/ML VIAL IVP ONE (19:00)
[2018-06-30] MEDS ORDERED: RT-ALBUTEROL/IPRATROPIUM 3 ML (DUONEB) VIAL INH ONE (19:00)
[2018-06-30] MEDS ORDERED: PROCHLORPERAZINE 10 MG/2ML INJ (COMPAZINE) IV ONE (19:00)
[2018-06-30] MEDS ORDERED: diphenhydrAMINE 50 MG/ML INJ (BENADRYL) IVP ONE (19:00)
[2018-06-30] MEDS ORDERED: KETOROLAC 30 MG/ML VIAL ONE (19:10)
--- NOTE | 2018-06-30 20:05 | NUR ---
Pt reports feeling very agitated and wants to leave. [employer] notified.
== END 2018-06-30 20:10 | disposition left against medical advice (07) ==
LOC: EDUNIT# 17:06 → ER 17:07
DX: R06.02 Shortness of breath (principal); R51 Headache; R05 Cough; G47.30 Sleep apnea, unspecified; J44.9 Chronic obstructive pulmonary disease, unspecified; I42.9 Cardiomyopathy, unspecified; I25.10 Atherosclerotic heart disease of native coronary artery without angina pectoris; E78.00 Pure hypercholesterolemia, unspecified; I10 Essential (primary) hypertension; G43.909 Migraine, unspecified, not intractable, without status migrainosus; K21.0 Gastro-esophageal reflux disease with esophagitis; E11.9 Type 2 diabetes mellitus without complications; F41.9 Anxiety disorder, unspecified; D64.9 Anemia, unspecified; F31.9 Bipolar disorder, unspecified; F17.210 Nicotine dependence, cigarettes, uncomplicated; Z87.19 Personal history of other diseases of the digestive system; Z99.81 Dependence on supplemental oxygen; Z91.5 Personal history of self-harm; Z88.8 Allergy status to other drugs, medicaments and biological substances; Z87.01 Personal history of pneumonia (recurrent); Z87.09 Personal history of other diseases of the respiratory system; Z79.82 Long term (current) use of aspirin; Z80.1 Family history of malignant neoplasm of trachea, bronchus and lung; Z82.49 Family history of ischemic heart disease and other diseases of the circulatory system; Z79.51 Long term (current) use of inhaled steroids; Z79.4 Long term (current) use of insulin; Z79.52 Long term (current) use of systemic steroids

== ENCOUNTER 2018-08-10 10:50 | Inpatient (IN) | payer OTHER ==
[~2018-08-10] VITALS: Ht 175.3 cm; Wt 89.4 kg
[2018-08-10] MEDS ORDERED: RT-ALBUTEROL/IPRATROPIUM 3 ML (DUONEB) VIAL INH ONE ×2 (11:00→11:15)
[2018-08-10] MEDS ORDERED: ASPIRIN 81 MG CHEW (CHILDREN'S ASA) PO ONE (11:00)
[2018-08-10] MEDS ORDERED: methylPREDNISolone 125 MG (Solu-MEDROL) VIAL IVP ONE (11:00)
[2018-08-10] MEDS ORDERED: ONDANSETRON 4 MG/2 ML (SDV) Z0FRAN IVP ONE (11:00)
[2018-08-10] MEDS ORDERED: RT-ALBUTEROL SULF 2.5 MG/3 ML PRE-MIX VIAL INH STA (11:15)
[2018-08-10 11:23] LABS: BASOPHILS % (AUTO) 0 % (0-10); EOSINOPHILS # (AUTO) 0.2 10^3/uL (0.0-0.3); EOSINOPHILS % (AUTO) 3 % (0-10); HEMATOCRIT 42 % (35-52); HEMOGLOBIN 14.1 G/DL (11.5-16.0); LYMPHOCYTES # (AUTO) 2.1 X 10^3 (1.0-4.0); LYMPHOCYTES % (AUTO) 23 % (12-44); MEAN CORPUSCULAR HEMOGLOBIN 29 PG (25-34); MEAN CORPUSCULAR HGB CONC 34 G/DL (32-36); MEAN CORPUSCULAR VOLUME 87 FL (80-99); MEAN PLATELET VOLUME 10.2 FL (7.4-10.4); MONOCYTES # (AUTO) 0.6 X 10^3 (0.0-1.0); MONOCYTES % (AUTO) 7 % (0-12); NEUTROPHILS # (AUTO) 5.9 X 10^3 (1.8-7.8); NEUTROPHILS % (AUTO) 67 % (42-75); PLATELET COUNT 330 10^3/uL (130-400); RED CELL DISTRIBUTION WIDTH 13.6 % (10.0-14.5); WHITE BLOOD COUNT 8.8 10^3/uL (4.3-11.0)
[2018-08-10] MEDS ORDERED: LORazepam INJ 2 MG/ML (ATIVAN) VIAL IVP ONE (11:30)
[2018-08-10 11:38] LABS: MAGNESIUM 1.6 MG/DL (1.8-2.4)
--- NOTE | 2018-08-10 11:40 | NUR ---
LAB HERE TO DRAW 2ND BLOOD CULTURE.
[2018-08-10 11:47] LABS: ALANINE AMINOTRANSFERASE 11 U/L (0-55); ALKALINE PHOSPHATASE 63 U/L (40-136); BILIRUBIN,TOTAL 0.4 MG/DL (0.1-1.0); BUN/CREATININE RATIO 9; CALCIUM 9.6 MG/DL (8.5-10.1); CARBON DIOXIDE 24 MMOL/L (21-32); CHLORIDE 106 MMOL/L (98-107); CREATININE SERUM 0.81 MG/DL (0.60-1.30); GFR ESTIMATED > 60; GLUCOSE 162 MG/DL (70-105); POTASSIUM 3.9 MMOL/L (3.6-5.0); SODIUM 140 MMOL/L (135-145); TOTAL PROTEIN 6.3 GM/DL (6.4-8.2)
--- NOTE | 2018-08-10 11:59 | Diagnostic Imaging Report ---
INDICATION: Increasing shortness of air, chest pain, back pain.. TECHNIQUE: Single view chest 11:40 AM. CORRELATION STUDY: 06/30/2018 FINDINGS: The heart size, mediastinal configuration and pulmonary vascularity are within normal limits. The lungs are hyperinflated but appearing clear with no consolidating infiltrate. There is no significant effusion or pneumothorax. IMPRESSION: 1. Stable chest demonstrates no significant interval change. Dictated by: Dictated on workstation # [id number]
[2018-08-10] MEDS ORDERED: MAGNESIUM 1 GM/100 ML IVPB 100 ML IV ONE (12:00)
--- NOTE | 2018-08-10 12:01 | NUR ---
RT CALLED TO PLACE PATIENT ON [facility]
--- NOTE | 2018-08-10 12:16 | NUR ---
UP TO [facility]. RT HERE TO PLACE ON [address] [facility]
[2018-08-10 12:25] VITALS: BP 94/70
[2018-08-10 12:29] LABS: INR 0.9 (0.8-1.4); PROTHROMBIN TIME PATIENT 12.5 SEC (12.2-14.7)
[2018-08-10 12:47] LABS: BILIRUBIN,URINE NEGATIVE (NEGATIVE); CLARITY,URINE CLEAR; COLOR,URINE YELLOW; GLUCOSE, URINE (UA) NEGATIVE (NEGATIVE); KETONES,URINE NEGATIVE (NEGATIVE); LEUKOCYTE ESTERASE ,URINE NEGATIVE (NEGATIVE); NITRITE,URINE NEGATIVE (NEGATIVE); PH,URINE 5 (5-9); PROTEIN,URINE NEGATIVE (NEGATIVE); UROBILINOGEN,URINE NORMAL (NORMAL)
[2018-08-10 13:02] LABS: RBC,URINE RARE /HPF
[2018-08-10 13:03] LABS: BACTERIA,URINE FEW /HPF; SQUAMOUS EPITHELIAL CELL,UR 0-2 /HPF; WBC,URINE 0-2 /HPF
[2018-08-10 13:06] LABS: AMPHETAMINE SCREEN, URINE NEGATIVE (NEGATIVE); BARBITURATE SCREEN URINE NEGATIVE (NEGATIVE); BENZODIAZEPINES SCREEN URINE NEGATIVE (NEGATIVE); CANNABINOID SCREEN, URINE NEGATIVE (NEGATIVE); COCAINE SCREEN URINE NEGATIVE (NEGATIVE); METHADONE STAT NEGATIVE (NEGATIVE); METHAMPHETAMINE SCREEN URINE S NEGATIVE (NEGATIVE); OPIATE SCREEN URINE NEGATIVE (NEGATIVE); OXYCODONE STAT NEGATIVE (NEGATIVE); PROPOXYPHENE STAT NEGATIVE (NEGATIVE); TRICYCLIC ANTIDEPRESSANTS SCRE NEGATIVE (NEGATIVE)
[2018-08-10] MEDS ORDERED: FUROSEMIDE 40 MG/4 ML INJ (LASIX) IVP ONE (13:30)
--- NOTE | 2018-08-10 13:32 | ED Respiratory ---
General Chief Complaint: Respiratory Problems Stated Complaint: SOA;VOMITING;LOWER BACK PAIN Nursing Triage Note: AMB TO ROOM WITH HOME [address] REPORTS SINCE THURSDAY HAS HAD INCREASE SOA, CHEST PAIN ,BACK PAIN. REPORTS THAT SHE WAS ABLE TO SMOKE THIS AM. Source: patient, old records Exam Limitations: no limitations History of Present Illness Date Seen by Provider: Aug 10, 2018 Time Seen by Provider: 10:52 Initial Comments This 53-year-old woman with advanced COPD presents to the emergency room with increasing shortness of breath over the past 4-5 days. She is afebrile. She continues to smoke cigarettes despite her problems with COPD. Her last amphetamine use was reportedly about 3 weeks ago. She has history of nonischemic cardiomyopathy. Her last cardiac catheterization was in 2018 demonstrating moderate LAD disease. An echocardiogram in 2016 showed an EF of 50 percent and diastolic dysfunction. Patient is not hypoxic but she does appear in distress and anxious. She has had chest discomfort associated with her dyspnea that radiates into her back and neck and is described as an achiness. She also has some lower abdominal discomfort. Allergies and Home Medications Allergies Coded Allergies: buspirone (Verified Allergy, Mild, 05/02/17) Made"legs Shaky" amitriptyline (Verified Allergy, Unknown, 05/02/17) " MAKES ME DO WEIRD THINGS LIKE WALK IN MY SLEEP AND HAVE HALLUCINATIONS." Home Medications Albuterol Sulfate 1 Puff Puff, 2 PUFF IH Q4H PRN for SHORTNESS OF BREATH, (Reported) Aspirin 81 Mg Tablet.dr, 81 MG PO DAILY, (Reported) Cephalexin 500 Mg Capsule, 500 MG PO QID Prescribed by: RODY ALDANA on 06/01/18 0948 Cephalexin 500 Mg Capsule, 500 MG PO TID Prescribed by: ELLEN ACE on 06/30/18 1312 Fluticasone/Salmeterol 1 Each Blst.w.dev, 1 PUFF IH BID, (Reported) Furosemide 20 Mg Tablet, 20 MG PO DAILY, (Reported) Glimepiride 1 Mg Tablet, 1 MG PO DAILY PRN for WHEN TAKING PREDNISONE, (Reported) Ipratropium/Albuterol Sulfate 3 Ml Ampul.neb, 3 ML IH QID PRN for SHORTNESS OF BREATH, (Reported) Metoprolol Tartrate 25 Mg Tablet, 12.5 MG PO BID, (Reported) TAKES 1/2 (25MG) TABLET Prednisone 10 Mg Tab.ds.pk, 10 MG PO DAILY Take 6 tabs(60mg)daily,decrease by 1 tab(10MG)daily. Prescribed by: RODY ALDANA on 06/01/18 0948 Sacubitril/Valsartan 1 Each Tablet, 1 TAB PO BID, (Reported) Tiotropium [place] 1 Inh Aerp, 1 CAP IH DAILY, (Reported) Patient Home Medication List Home Medication List Reviewed: Yes Review of Systems Review of Systems Constitutional: no symptoms reported EENTM: no symptoms reported Respiratory: see HPI Cardiovascular: see HPI Gastrointestinal: see HPI Genitourinary: no symptoms reported : No Musculoskeletal: see HPI Skin: no symptoms reported Psychiatric/Neurological: No Symptoms Reported Hematologic/Lymphatic: No Symptoms Reported Immunological/Allergic: no symptoms reported Past Qcaegwq-Hdkgvk-Xcbiwt Hx Past Med/Social Hx: Reviewed Nursing Past Med/Soc Hx Patient Social History Alcohol Use: Denies Use Recreational Drug Use: Yes Drug of Choice: + IV METH, ALSO SMOKES IT; MULTIPLE BENZODIAZEPINE OD'S Smoking Status: Current Everyday Smoker Type Used: Cigarettes 2nd Hand Smoke Exposure: Yes Recent Foreign Travel: No Contact w/Someone Who Travel: No Recent Infectious Disease Expo: No Recent Hopitalizations: Yes Immunizations Up To Date Tetanus Booster (TDap): Unknown Date of Pneumonia Vaccine: Apr 30, 2018 Date of Influenza Vaccine: Apr 30, 2018 Seasonal Allergies Seasonal Allergies: No Past Medical History Surgeries: Yes (EGD/COLONOSCOPY; CARDIAC CATH 09/18/17--NO INTERVENTION) Cardiac Respiratory: Yes (O2 AT 2-3L/NC) Pneumonia, Chronic Bronchitis, Sleep Apnea, COPD Currently Using CPAP: No Currently Using BIPAP: Yes Cardiac: Yes Cardiomyopathy, Coronary Artery Disease, High Cholesterol, Hypertension Neurological: Yes Headaches /Migraines 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 Disorders: No 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 Disorders: Denies [employer] History: Menopausal Sexually Transmitted Disease: No HIV/AIDS: No Genitourinary: No Gastrointestinal: Yes (GASTRITIS AND ESOPHAGEAL CANDIDIASIS 04/2017) Gastroesophageal Reflux, Gastrointestinal Bleed, Chronic Constipation, Chronic Diarrhea, Esophagitis, Ulcer Musculoskeletal: Yes (chronic shoulder and neck pain) Endocrine: Yes (DM- only while on steriods per pt) Diabetes, Non-Insulin dep HEENT: No Cancer: No Psychosocial: Yes (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; POLYSUBSTANCE ABUSE) Sleep Difficulties, Anxiety, Suicide Attempts, Bipolar, Depression Integumentary: No Blood Disorders: Yes (ANEMIA) Adverse Reaction/Blood Tranf: No Family Medical History Cancer 03 MOTHER, Onset:66 (LUNG ) 09 BROTHER (LUNG ) Congestive heart failure 03 FATHER Heart Disease, Cancer Physical Exam Vital Signs - First Documented 08/10/18 10:53 Temp 96.6 Pulse 93 Resp 18 B/P (MAP) 154/111 (125) Pulse Ox 99 O2 Delivery Nasal Cannula O2 Flow Rate 2.00 Capillary Refill : Less Than 3 Seconds Height: 5'9.00" Weight: 200lbs. 4.0oz. 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 nml as tested, no motor/sensory deficits, alert, oriented x 3, other (anxious) Skin: normal color, warm/dry Progress/Results/Core Measures Suspected Sepsis Recent Fever Within 48 Hours: No Infection Criteria Present: Suspected New Infection New/Unexplained Altered Menta: No Sepsis Screen: Possible Sepsis Risk SIRS Temperature:96.6 Pulse: 92 Respiratory Rate: 25 Laboratory Tests 08/10/18 11:01: White Blood Count 8.8 Blood Pressure 94 /70 Mean: 125 Laboratory Tests 08/10/18 11:01: Creatinine 0.81, Platelet Count 330, Total Bilirubin 0.4 08/10/18 11:48: INR Comment 0.9 Results/Orders Lab Results Laboratory Tests Test 08/10/18 11:01 08/10/18 11:48 08/10/18 12:40 Range/Units White Blood Count 8.8 4.3-11.0 10^3/uL Red Blood Count 4.82 4.35-5.85 10^6/uL Hemoglobin 14.1 11.5-16.0 G/DL Hematocrit 42 35-52 % Mean Corpuscular Volume 87 80-99 FL Mean Corpuscular Hemoglobin 29 25-34 PG Mean Corpuscular Hemoglobin Concent 34 32-36 G/DL Red Cell Distribution Width 13.6 10.0-14.5 % Platelet Count 330 130-400 10^3/uL Mean Platelet Volume 10.2 7.4-10.4 FL Neutrophils (%) (Auto) 67 42-75 % Lymphocytes (%) (Auto) 23 12-44 % Monocytes (%) (Auto) 7 0-12 % Eosinophils (%) (Auto) 3 0-10 % Basophils (%) (Auto) 0 0-10 % Neutrophils # (Auto) 5.9 1.8-7.8 X 10^3 Lymphocytes # (Auto) 2.1 1.0-4.0 X 10^3 Monocytes # (Auto) 0.6 0.0-1.0 X 10^3 Eosinophils # (Auto) 0.2 0.0-0.3 10^3/uL Basophils # (Auto) 0.0 0.0-0.1 10^3/uL Sodium Level 140 135-145 MMOL/L Potassium Level 3.9 3.6-5.0 MMOL/L Chloride Level 106 98-107 MMOL/L Carbon Dioxide Level 24 21-32 MMOL/L Anion Gap 10 5-14 MMOL/L Blood Urea Nitrogen 7 7-18 MG/DL Creatinine 0.81 0.60-1.30 MG/DL Estimat Glomerular Filtration Rate > 60 BUN/Creatinine Ratio 9 Glucose Level 162 H 70-105 MG/DL Calcium Level 9.6 8.5-10.1 MG/DL Corrected Calcium 9.6 8.5-10.1 MG/DL Magnesium Level 1.6 L 1.8-2.4 MG/DL Total Bilirubin 0.4 0.1-1.0 MG/DL Aspartate Amino Transf (AST/SGOT) 14 5-34 U/L Alanine Aminotransferase (ALT/SGPT) 11 0-55 U/L Alkaline Phosphatase 63 40-136 U/L Myoglobin 32.3 10.0-92.0 NG/ML Troponin I < 0.028 <0.028 NG/ML C-Reactive Protein High Sensitivity 0.16 0.00-0.50 MG/DL B-Type Natriuretic Peptide 563.6 H <100.0 PG/ML Total Protein 6.3 L 6.4-8.2 GM/DL Albumin 4.0 3.2-4.5 GM/DL Lipase 14 8-78 U/L Prothrombin Time 12.5 12.2-14.7 SEC INR Comment 0.9 0.8-1.4 Activated Partial Thromboplast Time 27 24-35 SEC Urine Color YELLOW Urine Clarity CLEAR Urine pH 5 5-9 Urine Specific Roland 1.010 L 1.016-1.022 Urine Protein NEGATIVE NEGATIVE Urine Glucose (UA) NEGATIVE NEGATIVE Urine Ketones NEGATIVE NEGATIVE Urine Nitrite NEGATIVE NEGATIVE Urine Bilirubin NEGATIVE NEGATIVE Urine Urobilinogen NORMAL NORMAL MG/DL Urine Leukocyte Esterase NEGATIVE NEGATIVE Urine RBC (Auto) 2+ H NEGATIVE Urine RBC RARE /HPF Urine WBC 0-2 /HPF Urine Squamous Epithelial Cells 0-2 /HPF Urine Crystals NONE /LPF Urine Bacteria FEW H /HPF Urine Casts NONE /LPF Urine Mucus NEGATIVE /LPF Urine Culture Indicated YES Urine Opiates Screen NEGATIVE NEGATIVE Urine Oxycodone Screen NEGATIVE NEGATIVE Urine Methadone Screen NEGATIVE NEGATIVE Urine Propoxyphene Screen NEGATIVE NEGATIVE Urine Barbiturates Screen NEGATIVE NEGATIVE Ur Tricyclic Antidepressants Screen NEGATIVE NEGATIVE Urine Phencyclidine Screen NEGATIVE NEGATIVE Urine Amphetamines Screen NEGATIVE NEGATIVE Urine Methamphetamines Screen NEGATIVE NEGATIVE Urine Benzodiazepines Screen NEGATIVE NEGATIVE Urine Cocaine Screen NEGATIVE NEGATIVE Urine Cannabinoids Screen NEGATIVE NEGATIVE My Orders Orders - TYLOR DURAN MD Cbc With Automated Diff (08/10/18 10:52) Comprehensive Metabolic Panel (08/10/18 10:52) Ua Culture If Indicated (08/10/18 10:52) Ed Iv/Invasive Line Start (08/10/18 10:52) Albuterol/Ipra Inhalation Soln (Duoneb I (08/10/18 11:00) Chest 1 View, Ap/Pa Only (08/10/18 10:57) Magnesium (08/10/18 10:57) Ekg Tracing (08/10/18 10:57) Cardiac Profile 1 (08/10/18 10:57) Myoglobin Serum (08/10/18 10:57) Protime With Inr (08/10/18 10:57) Partial Thromboplastin Time (08/10/18 10:57) O2 (08/10/18 10:57) Monitor-Rhythm Ecg Trace Only (08/10/18 10:57) Lipid Panel (08/11/18 06:00) Aspirin Chewable Tablet (Baby Aspirin Ch (08/10/18 11:00) Svn Small Volume Nebulizer (08/10/18 10:57) Methylprednisolone Sod Succ (Solu-Medrol (08/10/18 11:00) Ondansetron Injection (Zofran Injectio (08/10/18 11:00) BNP (08/10/18 10:59) Hs C Reactive Protein (08/10/18 10:59) Albuterol Pre-Mix Nebs (Rt) (Proventil (08/10/18 11:15) Albuterol/Ipra Inhalation Soln (Duoneb I (08/10/18 11:15) Svn Small Volume Nebulizer (08/10/18 11:15) Svn Small Volume Nebulizer (08/10/18 11:15) Lorazepam Injection (Ativan Injection) (08/10/18 11:30) Magnesium 1 Gm/100 Ml Ivpb (Magnesium [place] (08/10/18 12:00) Drug Screen Stat (Urine) (08/10/18 11:56) Bipap (Bilevel) Set Up (08/10/18 12:05) Lipase (08/10/18 12:05) Urine Culture (08/10/18 12:40) Furosemide Injection (Lasix Injection) (08/10/18 13:30) Medications Given in ED Current Medications Medications Dose Ordered Sig/Vladimir Route Start Time Stop Time Status Last Admin Dose Admin Albuterol/ Ipratropium 3 ml ONCE ONCE INH 08/10/18 11:00 08/10/18 11:01 DC 08/10/18 11:05 3 ML Albuterol/ Ipratropium 3 ml ONCE ONCE INH 08/10/18 11:15 08/10/18 11:16 DC 08/10/18 11:21 3 ML Aspirin 243 mg ONCE ONCE PO 08/10/18 11:00 08/10/18 11:01 DC 08/10/18 11:14 243 MG Lorazepam 0.5 mg ONCE ONCE IVP 08/10/18 11:30 08/10/18 11:31 DC 08/10/18 11:35 0.5 MG Magnesium Sulfate/ Dextrose 100 ml @ 100 mls/hr ONCE ONCE IV 08/10/18 12:00 08/10/18 12:59 DC 08/10/18 12:08 100 MLS/HR Methylprednisolone Sodium Succinate 125 mg ONCE ONCE IVP 08/10/18 11:00 08/10/18 11:01 DC 08/10/18 11:17 125 MG Ondansetron HCl 8 mg ONCE ONCE IVP 08/10/18 11:00 08/10/18 11:01 DC 08/10/18 11:15 8 MG Vital Signs/I&O 08/10/18 08/10/18 08/10/18 08/10/18 10:53 10:53 11:06 11:22 Temp 96.6 Pulse 93 Resp 18 B/P (MAP) 154/111 (125) Pulse Ox 99 99 99 O2 Delivery Nasal Cannula Room Air Nasal Cannula Nasal Cannula O2 Flow Rate 2.00 3.00 3.00 08/10/18 12:25 Pulse 92 Resp 25 Pulse Ox 100 O2 Flow Rate 30.00 Capillary Refill : Less Than 3 Seconds Blood Pressure Mean: 125 Progress Note : Progress Note Patient was given a DuoNeb treatment which helped her air movement a little bit. This was followed by an hour-long nebulizer treatment, Solu-Medrol, and Ativan 0.5 mg IV. She did not make is much progress with this therapy as I had hoped. She was placed on BiPAP which resulted in significant improvement. She was relaxed on BiPAP without any distress. She had mild hypomagnesemia and 1 g of magnesium was administered by IV route. Case was discussed with Dr. Acosta who requested consult with Dr. Auguste and Dr. Trivedi. Dr. Auguste requested Lasix 40 mg IV twice a day. The first dose of Lasix was ordered for administration in the ER. Dr. Trivedi agrees with admission on scheduled nebulizer treatments and Solu-Medrol 40 mg every 6 hours. ECG Initial ECG Impression Date: Aug 10, 2018 Initial ECG Impression Time: 11:02 Initial ECG Rate: 89 Initial ECG Rhythm: Normal Sinus Initial ECG Intervals: QT (QTC 526) Comment Sinus rhythm with no ST elevation or depression. Prolonged QT interval at 526 ms. No axis deviation. Diagnostic Imaging Diagonstic Imaging: Xray Plain Films/CT/US/NM/MRI: chest Comments Chest x-ray viewed by me, compared with prior, and report reviewed. See report below: NAME: SCOUT BURGESS [facility] REC#: [id number] PT STATUS: REG ER : 1965 PHYSICIAN: TYLOR DURAN MD ADMIT DATE: 08/10/18/ER Signed Date of Exam: 08/10/18 CHEST 1 VIEW, AP/PA ONLY INDICATION: Increasing shortness of air, chest pain, back pain.. TECHNIQUE: Single view chest 11:40 AM. CORRELATION STUDY: 06/30/2018 FINDINGS: The heart size, mediastinal configuration and pulmonary vascularity are within normal limits. The lungs are hyperinflated but appearing clear with no consolidating infiltrate. There is no significant effusion or pneumothorax. IMPRESSION: 1. Stable chest demonstrates no significant interval change. Dictated by: Dictated on workstation # [id number] Dict: 08/10/18 1155 Trans: 08/10/18 1156 Interpreted by: RAMON GREEN DO Electronically signed by: RAMON GREEN DO 08/10/18 1156 Departure Communication (Admissions) Time/Spoke to Admitting Phy: 13:10 Dr. Aldana 13:20 Dr. Trivedi 13:15 Dr. Auguste Impression Primary Impression: COPD with exacerbation Additional Impressions: Acute on chronic congestive heart failure Qualified Codes: I50.33 - Acute on chronic diastolic (congestive) heart failure Nonischemic cardiomyopathy Chest pain Qualified Codes: R07.9 - Chest pain, unspecified Disposition: ADMITTED INPATIENT Condition: Improved Admissions Decision to Admit Reason: Admit from ER (General) Decision to Admit/Date: Aug 10, 2018 Time/Decision to Admit Time: 12:05 Departure-Patient Inst. Referrals: [facility] [place]) Primary Care Physician ALIZA CARTERP (Family) Primary Care Physician TYLOR DURAN MD Aug 10, 2018 13:32
--- NOTE | 2018-08-10 13:34 | NUR ---
CALLED FOR ROOM
--- NOTE | 2018-08-10 14:02 | NUR ---
RT CALLED TO MOVE PATIENT. TO FLOOR
--- NOTE | 2018-08-10 14:05 | NUR ---
ROCIO ASKING FOR PAIN MEDS FOR HER NECK AND BACK. DR LONDONO NOTIFIED. MEDS ORDERED.
[2018-08-10] MEDS ORDERED: KETOROLAC 30 MG/ML VIAL IVP ONE (14:15)
[2018-08-10 14:20] VITALS: BP 131/74
--- NOTE | 2018-08-10 14:28 | NUR ---
SCOUT BURGESS admitted to room 424-1, with an admitting diagnosis of COPD EXACERBATION,CHF, CHESAT PAIN, on 08/10/18 from ER via CART, accompanied by ER STAFF AND RT STAFF(BIPAP).SCOUT BURGESS introduced to surroundings, call light, bed controls, phone, TV, temperature control, lights, meal times, smoking policy, visitor policy, side rail policy, bathrooms and showers. Patient Rights given to patient in the handbook. SCOUT BURGESS verbalizes understanding that [facility] is not responsible for the loss or damage to any personal effects or valuables that are kept in the patients posession during their hospitalization. The following Patient Care Plans were discussed with the PT: Discharge Planning, IMP GAS EXCH, INEFF BREATHING PATTERN, INEFF AIRWAY CLEARANCE, RISK FOR INFECTION, ACT INTOL, AND ANXIETY . SCOUT BURGESS verbalizes understanding of Interdisciplinary Patient Education. Patient and/or family were informed about the Rapid Response Team and its purpose. CAME TO FLOOR FRON ER WITH SL IN R HAND(20ga) -- PT TO FLOOR WITH ER STAFF AND RT -- ON BIPAP --
[2018-08-10] MEDS ORDERED: RT-ALBUTEROL SULF 2.5 MG/3 ML PRE-MIX VIAL IH PRN (15:15)
[2018-08-10] MEDS ORDERED: CATHETER FLUSH 10 ML SYR IV PRN (15:15)
[2018-08-10 15:20] VITALS: BP 130/76
--- NOTE | 2018-08-10 16:08 | Consultation-Cardiology ---
HPI-Cardiology Cardiology Consultation Date of Consultation 08/10/18 Date of Admission Time Seen by Provider: 16:03 Indication: shortness of breath HPI 53 years old lady with history of CHF, advanced COPD, came into the emergency room for increasing shortness of breath which has been worsening. She is an active smoker, has been using methamphetamine and last use was about 3 weeks ago. Known to have nonischemic cardiomyopathy had a cardiac catheterization done in 2018. She was noted to have elevated BNP. Upper my evaluation she was still short of breath, on BiPAP machine. Complaining of headache. No chest pain. Home Medications & Allergies Allergies: Coded Allergies: buspirone (Verified Allergy, Mild, 05/02/17) Made"legs Shaky" amitriptyline (Verified Allergy, Unknown, 05/02/17) " MAKES ME DO WEIRD THINGS LIKE WALK IN MY SLEEP AND HAVE HALLUCINATIONS." Home Medication List Reviewed: Yes DXS-Bkjhzs-Gaxflx Hx Patient Social History Marital Status: Employed/Student: employed Alcohol Use: Denies Use Recreational Drug Use: Yes (4 YRS AGO) Drug of Choice: + IV METH, ALSO SMOKES IT; MULTIPLE BENZODIAZEPINE OD'S Smoking Status: Current Everyday Smoker Type Used: Cigarettes 2nd Hand Smoke Exposure: Yes Recent Foreign Travel: No Recent Infectious Disease Expo: No Recent Hopitalizations: Yes Physical Abuse Screen: No Sexual Abuse: No Immunizations Up To Date Tetanus Booster (TDap): Unknown Date of Pneumonia Vaccine: Apr 30, 2018 Date of Influenza Vaccine: Apr 30, 2018 Past Medical History discussed below Family Medical History Significant Family History: Heart Disease, Cancer Family History: Cancer 03 MOTHER, Onset:66 (LUNG ) 09 BROTHER (LUNG ) Congestive heart failure 03 FATHER Review of Systems-General Review of Systems Constitutional: no symptoms reported, see HPI, dizziness, malaise, weakness EENTM: see HPI Respiratory: see HPI, cough, dyspnea on exertion, orthopnea, short of breath, wheezing Cardiovascular: see HPI, chest pain, edema; No Hx of Intervention, No palpitations, No syncope, No vascular heart diseas, No other Gastrointestinal: no symptoms reported, see HPI Genitourinary: see HPI : No Musculoskeletal: see HPI Skin: see HPI Psychiatric/Neurological: See HPI Reviewed Test Results Reviewed Test Results Lab Laboratory Tests Test 08/10/18 11:01 08/10/18 11:48 08/10/18 12:40 Range/Units White Blood Count 8.8 4.3-11.0 10^3/uL Red Blood Count 4.82 4.35-5.85 10^6/uL Hemoglobin 14.1 11.5-16.0 G/DL Hematocrit 42 35-52 % Mean Corpuscular Volume 87 80-99 FL Mean Corpuscular Hemoglobin 29 25-34 PG Mean Corpuscular Hemoglobin Concent 34 32-36 G/DL Red Cell Distribution Width 13.6 10.0-14.5 % Platelet Count 330 130-400 10^3/uL Mean Platelet Volume 10.2 7.4-10.4 FL Neutrophils (%) (Auto) 67 42-75 % Lymphocytes (%) (Auto) 23 12-44 % Monocytes (%) (Auto) 7 0-12 % Eosinophils (%) (Auto) 3 0-10 % Basophils (%) (Auto) 0 0-10 % Neutrophils # (Auto) 5.9 1.8-7.8 X 10^3 Lymphocytes # (Auto) 2.1 1.0-4.0 X 10^3 Monocytes # (Auto) 0.6 0.0-1.0 X 10^3 Eosinophils # (Auto) 0.2 0.0-0.3 10^3/uL Basophils # (Auto) 0.0 0.0-0.1 10^3/uL Sodium Level 140 135-145 MMOL/L Potassium Level 3.9 3.6-5.0 MMOL/L Chloride Level 106 98-107 MMOL/L Carbon Dioxide Level 24 21-32 MMOL/L Anion Gap 10 5-14 MMOL/L Blood Urea Nitrogen 7 7-18 MG/DL Creatinine 0.81 0.60-1.30 MG/DL Estimat Glomerular Filtration Rate > 60 BUN/Creatinine Ratio 9 Glucose Level 162 H 70-105 MG/DL Calcium Level 9.6 8.5-10.1 MG/DL Corrected Calcium 9.6 8.5-10.1 MG/DL Magnesium Level 1.6 L 1.8-2.4 MG/DL Total Bilirubin 0.4 0.1-1.0 MG/DL Aspartate Amino Transf (AST/SGOT) 14 5-34 U/L Alanine Aminotransferase (ALT/SGPT) 11 0-55 U/L Alkaline Phosphatase 63 40-136 U/L Myoglobin 32.3 10.0-92.0 NG/ML Troponin I < 0.028 <0.028 NG/ML C-Reactive Protein High Sensitivity 0.16 0.00-0.50 MG/DL B-Type Natriuretic Peptide 563.6 H <100.0 PG/ML Total Protein 6.3 L 6.4-8.2 GM/DL Albumin 4.0 3.2-4.5 GM/DL Lipase 14 8-78 U/L Prothrombin Time 12.5 12.2-14.7 SEC INR Comment 0.9 0.8-1.4 Activated Partial Thromboplast Time 27 24-35 SEC Urine Color YELLOW Urine Clarity CLEAR Urine pH 5 5-9 Urine Specific Verbena 1.010 L 1.016-1.022 Urine Protein NEGATIVE NEGATIVE Urine Glucose (UA) NEGATIVE NEGATIVE Urine Ketones NEGATIVE NEGATIVE Urine Nitrite NEGATIVE NEGATIVE Urine Bilirubin NEGATIVE NEGATIVE Urine Urobilinogen NORMAL NORMAL MG/DL Urine Leukocyte Esterase NEGATIVE NEGATIVE Urine RBC (Auto) 2+ H NEGATIVE Urine RBC RARE /HPF Urine WBC 0-2 /HPF Urine Squamous Epithelial Cells 0-2 /HPF Urine Crystals NONE /LPF Urine Bacteria FEW H /HPF Urine Casts NONE /LPF Urine Mucus NEGATIVE /LPF Urine Culture Indicated YES Urine Opiates Screen NEGATIVE NEGATIVE Urine Oxycodone Screen NEGATIVE NEGATIVE Urine Methadone Screen NEGATIVE NEGATIVE Urine Propoxyphene Screen NEGATIVE NEGATIVE Urine Barbiturates Screen NEGATIVE NEGATIVE Ur Tricyclic Antidepressants Screen NEGATIVE NEGATIVE Urine Phencyclidine Screen NEGATIVE NEGATIVE Urine Amphetamines Screen NEGATIVE NEGATIVE Urine Methamphetamines Screen NEGATIVE NEGATIVE Urine Benzodiazepines Screen NEGATIVE NEGATIVE Urine Cocaine Screen NEGATIVE NEGATIVE Urine Cannabinoids Screen NEGATIVE NEGATIVE Physical Exam Physical Exam Vital Signs Vital Signs - First Documented 08/10/18 10:53 Temp 96.6 Pulse 93 Resp 18 B/P (MAP) 154/111 (125) Pulse Ox 99 O2 Delivery Nasal Cannula O2 Flow Rate 2.00 Capillary Refill : Less Than 3 Seconds Height, Weight, BMI Height: 5'9.00" Weight: 196lbs. 4.0oz. 89.843411zt; 29.0 BMI Method:Stated General Appearance: No Apparent Distress, WD/WN Eyes: Bilateral Eye Normal Inspection, Bilateral Eye PERRL, Bilateral Eye EOMI HEENT: PERRL/EOMI, TMs Normal, Normal ENT Inspection, Pharynx Normal, Moist Mucous Membranes Neck: Full Range of Motion, Normal Inspection, Non Tender, Supple, Carotid Bruit Respiratory: Chest Non Tender, Normal Breath Sounds, No Accessory Muscle Use, No Respiratory Distress Cardiovascular: Regular Rate, Rhythm, No Edema, No Gallop, No JVD, No Murmur, Normal Peripheral Pulses Gastrointestinal: Normal Bowel Sounds, No Organomegaly, No Pulsatile Mass, Non Tender, Soft Back: Normal Inspection, No CVA Tenderness, No Vertebral Tenderness Extremity: Normal Capillary Refill, Normal Inspection, Normal Range of Motion, Non Tender, No Calf Tenderness, No Pedal Edema Neurologic/Psychiatric: Alert, Oriented x3, No Motor/Sensory Deficits, Normal Mood/Affect Skin: Normal Color, Warm/Dry Lymphatic: No Adenopathy A/P-Cardiology Admission Diagnosis Acute respiratory failure Congestive heart failure, acute on chronic left ventricular systolic dysfunction, nonischemic cardiomyopathy Hypertension Migraine headache Assessment/Plan Congestive heart failure, acute left ventricular systolic dysfunction, ejection fraction 15-20 percent per echocardiogram in August 2017. started on Lasix IV, receiving BiPAP. Continue to monitor Acute respiratory failure secondary to pulmonary edema. Noncompliance with medication. Managed by primary care physician Headache, methamphetamine use. Educated on compliance and avoiding illicit drugs History of syncope, monitor for now, no further episodes of syncope were reported Complete heart block with bradycardia, transient due to beta blockers and calcium channel blockers treatment, no further syncopal episodes were reported. Continue to monitor. History of sinus tachycardia, better at this time. Continue to monitor Mild to moderate coronary artery disease per cardiac catheterization done in 2014 and September 2017. Continue to monitor Hypertension, restart metoprolol and Entresto and monitor tolerance and response COPD, status post respiratory failure, oxygen dependent, followed by Dr. Trivedi History of migraine, having significant headache, managed by primary care physician Obesity, BMI is 29. We discussed weight loss. History of anxiety, depression. History of diabetes mellitus, followed and managed by primary care physician. History of noncompliance with medication. Multiple addictions mainly prescription medications. Currently doing well. Tobaccoism, we discussed smoking cessation. History of methamphetamine use Mild carotid stenosis, nonobstructive disease by ultrasound in November 2016. Clinical Quality Measures DVT/VTE Risk/Contraindication: Risk Factor Score Per Nursin RFS Level Per Nursing on Admit: 4+=Very High FRANCESCO GOULD MD Aug 10, 2018 16:08
[2018-08-10] MEDS ORDERED: FLUT1DIS27 IH (16:52)
[2018-08-10] MEDS ORDERED: ACET-2267 PO (16:55)
[2018-08-10] MEDS ORDERED: IBUP-30 PO (16:55)
[2018-08-10] MEDS ORDERED: HYDR-700 PO (16:55)
--- NOTE | 2018-08-10 16:55 | NUR ---
PATIENT IS UNWILLING TO GO OVER HER MEDICATION LIST WITH ME AT THIS TIME. SHE STATES HER HEAD HURTS AND SHE CAN'T CONCENTRATE. WHATEVER WE HAVE WILL HAVE TO BE GOOD ENOUGH AND NOTHING HAS CHANGED. I HAD A LIST SENT OVER FROM MEDICAL RECORDS AT [facility] AND UPDATED THE MED REC WITH THAT LIST. IN THE PAST PATIENT HAS RECEIVED MOST OF THE MEDS THROUGH PATIENT ASSISTANCE. I CALLED AND SPOKE WITH A NURSE WHO STATES THEY HAVE NOT GIVEN ANYTHING THROUGH REPOSITORY RECENTLY. [facility] FILLED: 04-28-18 METOPROLOL TARTRATE 25MG 1/2 BID #60 04-27-18 FUROSEMIDE 20MG DAILY #90 APR. ZI SHE HAS REPORTED THE ASPIRIN 81MG OTC AND THE GLIMEPIRIDE NEEDED WHEN TAKING PREDNISONE AT PREVIOUS ADMISSION.S LAST TIME SHE WAS ADMITTED ZI, ADVAIR, SPIRIVA, ENTRESTO, AND VENTOLIN WERE ALL PATIENT ASSISTANCE. I ADDED TYLENOL AND IBU PRN WELL HYDROXYZINE PRN FROM THE LIST FROM MEDICAL RECORDS. I WAS NOT ABLE TO VERIFY WHEN/WHERE/IF THE HYDROXYZINE WAS DISPENSED BUT ACCORDING TO THAT LIST IT WAS STARTED 07-01-18.
[2018-08-10] MEDS ORDERED: ACETAMINOPHEN 325 MG TABLET PO PRN (17:00)
[2018-08-10] MEDS ORDERED: ACETAMINOPHEN 325 MG TABLET ONE (17:03)
[2018-08-10] MEDS: methylPREDNISolone 40 MG/ML (Solu-MEDROL) VIAL IV SCH (17:51)
[2018-08-10] MEDS: FUROSEMIDE 40 MG/4 ML INJ (LASIX) IV SCH (17:51)
--- NOTE | 2018-08-10 18:01 | NUR ---
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
--- NOTE | 2018-08-10 18:11 | NUR ---
PT REFUSED 1800 IV SOLU MEDEROL 40 MG -- DR THOMAS ADVISED -- NO NEW ORDERS
[2018-08-10] MEDS: RT-ALBUTEROL/IPRATROPIUM 3 ML (DUONEB) VIAL IH SCH ×2 (19:30→23:23)
--- NOTE | 2018-08-10 19:30 | NUR ---
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 THIS RN INFORMS [facility] OF PT LEAVING FLOOR. HOUSE SUP HAS LEFT FLOOR TO LOOK FOR PT.
--- NOTE | 2018-08-10 20:00 | NUR ---
PT BACK TO ROOM AT THIS TIME. THIS RN INFORMED PT SHE CAN NOT LEAVE THE FLOOR WITH OXYGEN AND BEING SOB. PT INFORMED THIS RN SHE WENT DOWN STAIRS TO SMOKE. THIS RN INFORMED PT THIS IS A NON-SMOKING CAMPUS AND OXYGEN CAN EXPLODE IF SMOKING WHILE USING OXYGEN. PT STATES UNDERSTANDING AND SAYS SHE HAS A HORRIBLE HEADACHE. PT IS FLAILING AROUND IN BED AND IS SOB. THIS RN INFORMS PT IS AWARE OF HER TANG AND TORADOL CAN BE GIVEN. PT STATES UNDERSTANDING.
[2018-08-10] MEDS: KETOROLAC 15 MG/ML VIAL IV PRN (20:21)
[2018-08-10 20:24] VITALS: BP 132/86
[2018-08-10] MEDS: SACUBITRIL/VALSARTAN 24/26 MG (ENTRESTO) TABLET PO SCH (21:06)
[2018-08-10] MEDS: meTOprolol TARTRATE 25 MG (LOPRESSOR) TABLET PO SCH (21:07)
[2018-08-10] MEDS: CATHETER FLUSH 10 ML SYR IV SCH (21:07)
[2018-08-11] VITALS (7 sets, daily range): BP systolic 130–167; BP diastolic 65–96
[2018-08-11] MEDS: RT-ALBUTEROL/IPRATROPIUM 3 ML (DUONEB) VIAL IH SCH ×6 (02:41→22:12)
[2018-08-11] MEDS: KETOROLAC 15 MG/ML VIAL IV PRN ×3 (05:36→22:30)
[2018-08-11] MEDS: methylPREDNISolone 40 MG/ML (Solu-MEDROL) VIAL IV SCH ×4 (05:50→17:22)
[2018-08-11] MEDS: CATHETER FLUSH 10 ML SYR IV SCH ×3 (05:50→22:24)
[2018-08-11] MEDS: FUROSEMIDE 40 MG/4 ML INJ (LASIX) IV SCH (06:06)
[2018-08-11 06:35] LABS: HEMOGLOBIN 14.7 G/DL (11.5-16.0); MEAN PLATELET VOLUME 10.3 FL (7.4-10.4); RED CELL DISTRIBUTION WIDTH 13.6 % (10.0-14.5); WHITE BLOOD COUNT 16.1 10^3/uL (4.3-11.0)
[2018-08-11 06:52] LABS: ALANINE AMINOTRANSFERASE 12 U/L (0-55); ALBUMIN 4.1 GM/DL (3.2-4.5); ALKALINE PHOSPHATASE 66 U/L (40-136); BILIRUBIN,TOTAL 0.5 MG/DL (0.1-1.0); BUN/CREATININE RATIO 18; CALCIUM 9.8 MG/DL (8.5-10.1); CARBON DIOXIDE 23 MMOL/L (21-32); CHLORIDE 101 MMOL/L (98-107); CHOLESTEROL 201 MG/DL (< 200); CREATININE SERUM 0.85 MG/DL (0.60-1.30); GFR ESTIMATED > 60; GLUCOSE 126 MG/DL (70-105); HDL CHOLESTEROL 60 MG/DL (40-60); POTASSIUM 3.6 MMOL/L (3.6-5.0); SODIUM 137 MMOL/L (135-145); TOTAL PROTEIN 6.6 GM/DL (6.4-8.2); TRIGLYCERIDES 108 MG/DL (<150); VLDL CHOLESTEROL 22 MG/DL (5-40)
--- NOTE | 2018-08-11 07:55 | Pulmonary Consultation ---
History of Present Illness History of Present Illness Date of Consultation 08/11/18 07:52 Time Seen by Provider: 12:22 Date of Admission Reason for Visit: shortness of breath History of Present Illness 52yo with hx of severe COPD, multiple hospitalizations, drug use, and medical noncompliance presents to the ED with increased SOB. Last amphetamine use was reportedly about 3 weeks ago. No known fevers. Pt required BiPAP in the ED and secondary to anxiety. Her last cardiac catheterization was in 2018 demonstrating moderate LAD disease. I am consulted for pulmonary CC management. Allergies and Home Medications Allergies Coded Allergies: buspirone (Verified Allergy, Mild, 05/02/17) Made"legs Shaky" amitriptyline (Verified Allergy, Unknown, 05/02/17) " MAKES ME DO WEIRD THINGS LIKE WALK IN MY SLEEP AND HAVE HALLUCINATIONS." Home Medications Acetaminophen 500 Mg Tablet, 1,000 MG PO Q6H PRN for PAIN-MILD, (Reported) Albuterol Sulfate 1 Puff Puff, 2 PUFF IH Q4H PRN for SHORTNESS OF BREATH, (Reported) Aspirin 81 Mg Tablet.dr, 81 MG PO DAILY, (Reported) Fluticasone/Salmeterol 1 Each Blst.w.dev, 1 PUFF IH BID, (Reported) Furosemide 20 Mg Tablet, 20 MG PO DAILY, (Reported) LAST FILLED #90 04-27-18 Glimepiride 1 Mg Tablet, 1 MG PO DAILY PRN for WHEN TAKING PREDNISONE, (Reported) Hydroxyzine HCl 25 Mg Tablet, 25-50 MG PO TID PRN for ANXIETY/ITCHING, (R eported) Ibuprofen 200 Mg Tablet, 400-800 MG PO TID PRN for PAIN-MILD, (Reported) Ipratropium/Albuterol Sulfate 3 Ml Ampul.neb, 3 ML IH QID PRN for SHORTNESS OF BREATH, (Reported) Metoprolol Tartrate 25 Mg Tablet, 12.5 MG PO BID, (Reported) LAST FILLED #60 04-28-18 TAKES 1/2 (25MG) TABLET Sacubitril/Valsartan 1 Each Tablet, 1 TAB PO BID, (Reported) Tiotropium [place] 1 Inh Aerp, 1 CAP IH DAILY, (Reported) Past Iwdjylu-Szokys-Efenhw Hx Past Med/Social Hx: Reviewed Nursing Past Med/Soc Hx Patient Social History Alcohol Use: Denies Use Recreational Drug Use: Yes (4 YRS AGO) Drug of Choice: + IV METH, ALSO SMOKES IT; MULTIPLE BENZODIAZEPINE OD'S Smoking Status: Current Everyday Smoker Type Used: Cigarettes 2nd Hand Smoke Exposure: Yes Recent Foreign Travel: No Contact w/Someone Who Travel: No Recent Infectious Disease Expo: No Recent Hopitalizations: Yes Immunizations Up To Date Tetanus Booster (TDap): Unknown Date of Pneumonia Vaccine: Apr 30, 2018 Date of Influenza Vaccine: Apr 30, 2018 Seasonal Allergies Seasonal Allergies: No Past Medical History Surgeries: Yes (EGD/COLONOSCOPY; CARDIAC CATH 09/18/17--NO INTERVENTION) Cardiac Respiratory: Yes (O2 AT 2-3L/NC) Pneumonia, Chronic Bronchitis, Sleep Apnea, COPD Currently Using CPAP: No Currently Using BIPAP: Yes Cardiac: Yes Cardiomyopathy, Coronary Artery Disease, High Cholesterol, Hypertension Neurological: Yes Headaches /Migraines : No 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 Disorders: No 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 Sexually Transmitted Disease: No HIV/AIDS: No Genitourinary: No Gastrointestinal: Yes (GASTRITIS AND ESOPHAGEAL CANDIDIASIS 04/2017) Gastroesophageal Reflux, Gastrointestinal Bleed, Chronic Constipation, Chronic Diarrhea, Esophagitis, Ulcer Musculoskeletal: Yes (chronic shoulder and neck pain) Endocrine: Yes (DM- only while on steriods per pt) Diabetes, Non-Insulin dep HEENT: No Cancer: No Psychosocial: Yes (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; POLYSUBSTANCE ABUSE) Sleep Difficulties, Anxiety, Suicide Attempts, Bipolar, Depression Integumentary: No Blood Disorders: Yes (ANEMIA) Adverse Reaction/Blood Tranf: No Family Medical History Cancer 03 MOTHER, Onset:66 (LUNG ) 09 BROTHER (LUNG ) Congestive heart failure 03 FATHER Heart Disease, Cancer Review of Systems Time Seen by Provider: 12:25 Constitutional: Chills, Sweats, Weakness, Malaise, Other; No: Fever Eyes: No: Pain, Vision change, Conjunctivae inflammation, Eyelid inflammation, Other, Redness ENT: Nose congestion; No: Ear pain, Ear discharge, Nose pain, Nose discharge, Mouth pain, Mouth swelling, Throat pain, Throat swelling, Other Respiratory: Cough, Shortness of breath, SOB with excertion, Wheezing, Sputum Cardiovascular: Palpitations, Paroxysmal Noc. Dyspnea, Edema Gastrointestinal: Nausea, Constipation; No: Vomiting, Abdominal Pain, Diarrhea, Melena, Hematochezia, Other Sepsis Event Evaluation Height, Weight, BMI Height: 5'9.00" Weight: 197lbs. 6.0oz. 89.886430vo; 29.0 BMI Method:Stated Exam Exam Vital Signs Date Time Temp Pulse Resp B/P (MAP) Pulse Ox O2 Delivery O2 Flow Rate FiO2 08/11/18 07:35 94 High Flow N/C 6.00 08/11/18 04:51 96.9 73 25 167/96 (119) 95 High Flow N/C 5.00 08/11/18 02:40 94 High Flow N/C 6.00 08/11/18 01:00 85 08/11/18 00:35 96.8 90 24 160/83 (108) 96 Nasal Cannula 5.00 08/10/18 23:24 98 High Flow N/C 6.00 08/10/18 20:24 97.0 99 30 132/86 (101) 100 Nasal Cannula 5.00 08/10/18 20:00 Nasal Cannula 5.00 08/10/18 19:17 98 High Flow N/C 6.00 08/10/18 19:02 102 08/10/18 16:20 98 08/10/18 15:20 98.9 98 32 130/76 (94) 92 NIV Bilevel 30.00 08/10/18 14:28 96 NIV Bilevel 30.00 08/10/18 14:20 97.7 90 34 131/74 (93) 96 NIV Bilevel 08/10/18 14:20 97.7 90 34 131/74 96 08/10/18 14:04 94 18 134/93 (107) 98 NIV Bilevel 08/10/18 12:25 92 25 100 30.00 08/10/18 11:22 99 Nasal Cannula 3.00 08/10/18 11:06 99 Nasal Cannula 3.00 08/10/18 10:53 96.6 93 18 154/111 (125) 99 Room Air 08/10/18 10:53 Nasal Cannula 2.00 I & O 08/11/18 07:00 Intake Total 1060 ml Output Total 2050 ml Balance -990 ml Height & Weight Height: 5'9.00" Weight: 197lbs. 6.0oz. 89.773379fj; 29.0 BMI Method:Stated General Appearance: No Apparent Distress, WD/WN HEENT: PERRL/EOMI, TMs Normal, Normal ENT Inspection, Pharynx Normal, Moist Mucous Membranes Neck: Full Range of Motion, Normal Inspection, Non Tender, Supple, Carotid Bruit Respiratory: Chest Non Tender, Normal Breath Sounds, No Accessory Muscle Use, No Respiratory Distress Cardiovascular: Regular Rate, Rhythm, No Edema, No Gallop, No JVD, No Murmur, Normal Peripheral Pulses Capillary Refill: Less Than 3 Seconds Gastrointestinal: normal bowel sounds, non tender, soft Extremity: Normal Capillary Refill, Normal Inspection, Normal Range of Motion, Non Tender, No Calf Tenderness, No Pedal Edema Neurologic/Psychiatric: Alert, Oriented x3, No Motor/Sensory Deficits, Normal Mood/Affect Skin: Normal Color, Warm/Dry Lymphatic: No Adenopathy Results Lab Laboratory Tests 08/10/18 11:01 08/11/18 06:01 Assessment/Plan Assessment/Plan Acute on Chronic respiratory failure - BiPAP PRN SVNs Q4 -Pt is refusing SVNs and steroids. She only wants narcotics and Benzos - solumedrol Medical noncompliance and drug seeking behavior. Pt has been uncooperative since admission. She just wants Narcotics and Benzos CHF hx EF 15-20% -Lasix -Cardiology following Morbid obesity methamphetamine use hx of medical noncompliance with multiple hospitalizations. WILLIAMS THOMAS DO Aug 11, 2018 07:55
[2018-08-11 09:19] LABS: ABG BASE EXCESS 3.6 MMOL/L (-2.5-2.5); ABG OXYGEN SATURATION 99 % (94-100); ABG PCO2 43 MMHG (35-45); ABG PH 7.42 (7.37-7.43); ABG PO2 120 MMHG (79-93); ABG TCO2 29.2 MMOL/L (21.0-31.0); ALLENS TEST YES-POS; INSPIRED O2 5; PATIENT TEMP 97.9; VENTILATOR NO
[2018-08-11] MEDS: SACUBITRIL/VALSARTAN 24/26 MG (ENTRESTO) TABLET PO SCH ×2 (09:44→22:23)
[2018-08-11] MEDS: meTOprolol TARTRATE 25 MG (LOPRESSOR) TABLET PO SCH ×2 (09:44→22:23)
--- NOTE | 2018-08-11 10:20 | NUR ---
PALLIATIVE CARE RN in to see the patient. She has been seen by this RN numerous times before and had GOALS of CARE discussion with hospice education periodically. She is currently on O2 NC and is fidgety in her bed. We discussed again hospice and it's benefits. I did discuss the risks of the comfort medications and misuse. She would like to talk to a couple and hear what they have to say. Dr. Saeed will order low dose Ativan POP and see how she does with this. This RN will contact hospice for consideration of josé assist.
--- NOTE | 2018-08-11 10:22 | History & Physical-Hospitalist ---
History of Present Illness HPI/Chief Complaint CC: Dyspnea HPI: This is a chronically ill end-stage COPD patient who has a h/o MIRIAM who presented to the ER with dyspnea. Patient is now refusing steroids IV and most other meds and wants to go home on Hospice. Palliative care has been consulted. Patient reports she has pain "everywhere" and is moving all over the bed and I cannot really examine her. Source: patient Exam Limitations: no limitations Date Seen 08/11/18 Time Seen by a Provider: 09:15 Attending Physician Leila Saeed DO [facility] [place] [place] Referring Physician Date of Admission Aug 10, 2018 at 13:51 Home Medications & Allergies Home Medications Reviewed patient Home Medication Reconciliation performed by pharmacy medication reconciliations instrument and controls technician and/or nursing. Patients Allergies have been reviewed. Allergies Allergies Coded Allergies buspirone (Verified Allergy, Mild, 05/02/17) Made"legs Shaky" amitriptyline (Verified Allergy, Unknown, 05/02/17) " MAKES ME DO WEIRD THINGS LIKE WALK IN MY SLEEP AND HAVE HALLUCINATIONS." Past Nozbyat-Ooithj-Vtznck Hx Past Med/Social Hx: Reviewed Nursing Past Med/Soc Hx, Reviewed and Corrections made Patient Social History Marrital Status: Employed/Student: employed, unemployed Alcohol Use: Denies Use Recreational Drug Use: Yes (4 YRS AGO) Drug of Choice: + IV METH, ALSO SMOKES IT; MULTIPLE BENZODIAZEPINE OD'S Smoking Status: Current Everyday Smoker Type Used: Cigarettes 2nd Hand Smoke Exposure: Yes Physical Abuse Screen: No Sexual Abuse: No Recent Foreign Travel: No Contact w/other who traveled: No Recent Hopitalizations: Yes Recent Infectious Disease Expo: No Immunizations Up To Date Tetanus Booster (TDap): Unknown Date of Pneumonia Vaccine: Apr 30, 2018 Date of Influenza Vaccine: Apr 30, 2018 Seasonal Allergies Seasonal Allergies: No Past Medical History Surgeries: Cardiac Respiratory: COPD Currently Using CPAP: No Currently Using BIPAP: Yes Cardiac: Cardiomyopathy, Coronary Artery Disease, High Cholesterol, Hypertension Neurological: Headaches /Migraines : No 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: No Sexually Transmitted Disease: No HIV/AIDS: No 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 Disorders: Denies Menopausal Gastrointestinal: Gastroesophageal Reflux, Gastrointestinal Bleed, Chronic Constipation, Chronic Diarrhea, Esophagitis, Ulcer Endocrine: Diabetes, Non-Insulin dep Psychosocial: Sleep Difficulties, Anxiety, Suicide Attempts, Bipolar, Depression History of Blood Disorders: Yes (ANEMIA) Adverse Reaction to Blood Jeffers: No Family History Cancer 03 MOTHER, Onset:66 (LUNG ) 09 BROTHER (LUNG ) Congestive heart failure 03 FATHER Heart Disease, Cancer Review of Systems Constitutional: see HPI EENTM: no symptoms reported Respiratory: see HPI, dyspnea on exertion, short of breath Cardiovascular: no symptoms reported Gastrointestinal: no symptoms reported Genitourinary: no symptoms reported Musculoskeletal: back pain Skin: no symptoms reported Psychiatric/Neurological: No Symptoms Reported All Other Systems Reviewed Negative Unless Noted: Yes Physical Exam Physical Exam Vital Signs Vital Signs - First Documented 08/10/18 10:53 Temp 96.6 Pulse 93 Resp 18 B/P (MAP) 154/111 (125) Pulse Ox 99 O2 Delivery Nasal Cannula O2 Flow Rate 2.00 Capillary Refill : Less Than 3 Seconds Height, Weight, BMI Height: 5'9.00" Weight: 197lbs. 6.0oz. 89.600228gf; 29.0 BMI Method:Stated General Appearance: WD/WN, Anxious, Chronically ill, Moderate Distress Eyes: Right Eye Normal Inspection, Right Eye PERRL HEENT: PERRL/EOMI Neck: Full Range of Motion, Normal Inspection, Non Tender Respiratory: Chest Non Tender, No Respiratory Distress, Accessory Muscle Use, Decreased Breath Sounds Cardiovascular: Regular Rate, Rhythm, No Edema, No Gallop, No JVD, No Murmur, Normal Peripheral Pulses Gastrointestinal: Normal Bowel Sounds, No Organomegaly, No Pulsatile Mass, Non Tender, Soft Back: Normal Inspection, No CVA Tenderness, No Vertebral Tenderness Extremity: Normal Capillary Refill, Normal Inspection, Normal Range of Motion, Non Tender, No Calf Tenderness, No Pedal Edema Neurologic/Psychiatric: Alert, Oriented x3, No Motor/Sensory Deficits, Normal Mood/Affect Skin: Normal Color, Warm/Dry Lymphatic: No Adenopathy Results Results/Procedures Labs Laboratory Tests 08/10/18 11:01 08/11/18 06:01 Patient resulted labs reviewed. Assessment/Plan Admission Diagnosis Assessment: Severe end stage COPD Refusing meds Smoker MIRIAM Plan: IV steroids Nebs O2 Hospice at DC Admission Status: Inpatient Order (span 2 midnights) Reason for Inpatient Admission: Severe copd with exacerbation Diagnosis/Problems Diagnosis/Problems (1) Respiratory distress Status: Acute (2) CHF (congestive heart failure) Status: Acute Qualifiers: Heart failure type: unspecified Heart failure chronicity: unspecified Qualified Codes: I50.9 - Heart failure, unspecified (3) Smoker Status: Chronic (4) Methamphetamine abuse Status: Chronic (5) Non-compliance Status: Chronic Clinical Quality Measures DVT/VTE Risk/Contraindication: Risk Factor Score Per Nursin RFS Level Per Nursing on Admit: 4+=Very High LEILA SAEED DO Aug 11, 2018 10:22
--- NOTE | 2018-08-11 11:12 | Cardiology Progress Note ---
Subjective Date Seen by Provider: Aug 11, 2018 Time Seen by Provider: 11:11 Subjective/Events-last exam Patient is in bed, complaining of headache. Denies any chest pain or dyspnea. Objective-Cardiology Exam Last Set of Vital Signs Vital Signs 08/11/18 08:00 Temp 97.9 Pulse 84 Resp 20 B/P (MAP) 134/77 (96) Pulse Ox 98 O2 Delivery High Flow N/C O2 Flow Rate 5.00 Capillary Refill : Less Than 3 Seconds I&O Intake and Output 08/11/18 00:00 Intake Total 960 ml Output Total 1600 ml Balance -640 ml Intake Oral 960 ml Output Urine Total 1600 ml Daily Weight Change No No General: Alert, Oriented X3, Cooperative HEENT: Atraumatic, PERRLA Neck: Supple, No JVD, No Thyromegaly Lungs: Clear to Auscultation, Normal Air Movement Heart: Regular Rate, Normal S1, Normal S2, No Murmurs Abdomen: Normal Bowel Sounds, Soft, No Tenderness, No Hepatosplenomegaly, No Masses Extremities: No Clubbing, No Cyanosis, No Edema, Normal Pulses, No Tenderness/Swelling Skin: No Rashes, No Breakdown, No Significant Lesion Neuro: Normal Gait, Normal Speech, Strength at 5/5 X4 Ext, Normal Tone, Sensation Intact Psych/Mental Status: Mental Status NL, Mood NL Results Lab Laboratory Tests 08/11/18 06:01 A/P-Cardiology Admission Diagnosis Acute respiratory failure Congestive heart failure, acute on chronic left ventricular systolic dysfunction, nonischemic cardiomyopathy Hypertension Migraine headache Assessment/Plan Congestive heart failure, acute left ventricular systolic dysfunction, ejection fraction 15-20 percent per echocardiogram in August 2017. started on Lasix IV, receiving BiPAP. Has been noncompliant as outpatient with medical therapy. Restarted Entresto and beta nacho. Acute respiratory failure secondary to pulmonary edema. Noncompliance with medication. Managed by primary care physician Headache, methamphetamine use. Educated on compliance and avoiding illicit drugs History of syncope, monitor for now, no further episodes of syncope were reported Complete heart block with bradycardia, transient due to beta blockers and calcium channel blockers treatment, no further syncopal episodes were reported. Continue to monitor. History of sinus tachycardia, better at this time. Continue to monitor Mild to moderate coronary artery disease per cardiac catheterization done in 2014 and September 2017. Continue to monitor Hypertension, restarted metoprolol and Entresto, continue to monitor blood pressure. COPD, status post respiratory failure, oxygen dependent, followed by Dr. Trivedi History of migraine, having significant headache, managed by primary care physician Obesity, BMI is 29. We discussed weight loss. History of anxiety, depression. History of diabetes mellitus, followed and managed by primary care physician. History of noncompliance with medication. Multiple addictions mainly prescription medications. Currently doing well. Tobaccoism, we discussed smoking cessation. History of methamphetamine use Mild carotid stenosis, nonobstructive disease by ultrasound in November 2016. Clinical Quality Measures DVT/VTE Risk/Contraindication: Risk Factor Score Per Nursin RFS Level Per Nursing on Admit: 4+=Very High CARLOZ HEAD Aug 11, 2018 11:12
--- NOTE | 2018-08-11 12:58 | Cardiology Progress Note ---
Subjective Date Seen by Provider: Aug 11, 2018 Time Seen by Provider: 12:56 Subjective/Events-last exam patient is in bed, complaining of headache, breathing is better. No chest pain Review of Systems General: No Chills, No Night Sweats; Fatigue; No Malaise, No Appetite, No Other HEENT: No Head Aches, No Visual Changes, No Eye Pain, No Ear Pain, No Dysphasia, No Sinus Congestion, No Post Nasal Drip, No Sore Throat, No Other Pulmonary: No Dyspnea, No Cough, No Pleuritic Chest Pain, No Other Cardiovascular: No: Chest Pain, Palpitations, Orthopnea, Paroxysmal Noc. Dyspnea, Edema, Lt Headedness, Other Objective-Cardiology Exam Last Set of Vital Signs Vital Signs 08/11/18 08:00 Temp 97.9 Pulse 84 Resp 20 B/P (MAP) 134/77 (96) Pulse Ox 98 O2 Delivery High Flow N/C O2 Flow Rate 5.00 Capillary Refill : Less Than 3 Seconds I&O Intake and Output 08/11/18 00:00 Intake Total 960 ml Output Total 1600 ml Balance -640 ml Intake Oral 960 ml Output Urine Total 1600 ml Daily Weight Change No No General: Alert, Oriented X3, Cooperative HEENT: Atraumatic, PERRLA Neck: Supple, No JVD, No Thyromegaly Lungs: Clear to Auscultation, Normal Air Movement Heart: Regular Rate, Normal S1, Normal S2, No Murmurs Abdomen: Normal Bowel Sounds, Soft, No Tenderness, No Hepatosplenomegaly, No Masses Extremities: No Clubbing, No Cyanosis, No Edema, Normal Pulses, No Tenderness/Swelling Skin: No Rashes, No Breakdown, No Significant Lesion Neuro: Normal Gait, Normal Speech, Strength at 5/5 X4 Ext, Normal Tone, Sensation Intact Psych/Mental Status: Mental Status NL, Mood NL Results Lab Laboratory Tests 08/11/18 06:01 A/P-Cardiology Admission Diagnosis Acute respiratory failure Congestive heart failure, acute on chronic left ventricular systolic dysfunction, nonischemic cardiomyopathy Hypertension Migraine headache Assessment/Plan Congestive heart failure, acute on chronic left ventricular systolic dysfunction, ejection fraction 15-20 percent per echocardiogram in August 2017, better at this time, responded to IV Lasix, I'll switch her to oral. Acute respiratory failure secondary to pulmonary edema. Noncompliance with medication. Managed by primary care physician Headache, methamphetamine use. Educated on compliance and avoiding illicit drugs History of syncope, monitor for now, no further episodes of syncope were reported Complete heart block with bradycardia, transient due to beta blockers and calcium channel blockers treatment, no further syncopal episodes were reported. Continue to monitor. History of sinus tachycardia, better at this time. Continue to monitor Mild to moderate coronary artery disease per cardiac catheterization done in 2014 and September 2017. Continue to monitor Hypertension, restarted metoprolol and Entresto, continue to monitor blood pressure. COPD, status post respiratory failure, oxygen dependent, followed by Dr. Trivedi History of migraine, having significant headache, managed by primary care phys dari Obesity, BMI is 29. We discussed weight loss. History of anxiety, depression. History of diabetes mellitus, followed and managed by primary care physician. History of noncompliance with medication. Multiple addictions mainly prescription medications. Currently doing well. Tobaccoism, we discussed smoking cessation. History of methamphetamine use Mild carotid stenosis, nonobstructive disease by ultrasound in November 2016. Okay for discharge from cardiology standpoint and follow-up as an outpatient, educated on compliance with medication Clinical Quality Measures DVT/VTE Risk/Contraindication: Risk Factor Score Per Nursin RFS Level Per Nursing on Admit: 4+=Very High FRANCESCO GOULD MD Aug 11, 2018 12:58
--- NOTE | 2018-08-11 13:17 | NUR ---
Palliative Care RN has called and spoken to [facility] and to [facility]. I enquired about jos[facility] care and explained a little of the patient situation. [facility] reports that the patient would only be accepted to hospice benefit if she were in a controlled environment such as a SNF. Patient still works and would not be accepting of this arrangement. [facility] will send someone out to discuss the benefits of hospice and the rules for continuing service. Aylin informed of pending visit from [facility].
[2018-08-11] MEDS: LORazepam 0.5 MG (ATIVAN) TABLET PO PRN (18:20)
[2018-08-11] MEDS: FUROSEMIDE 40 MG (LASIX) TAB PO SCH (18:20)
[2018-08-12] MEDS: methylPREDNISolone 40 MG/ML (Solu-MEDROL) VIAL IV SCH ×2 (00:54→06:34)
[2018-08-12] MEDS: RT-ALBUTEROL/IPRATROPIUM 3 ML (DUONEB) VIAL IH SCH ×3 (03:07→10:32)
[2018-08-12] MEDS: KETOROLAC 15 MG/ML VIAL IV PRN (06:33)
[2018-08-12] MEDS: CATHETER FLUSH 10 ML SYR IV SCH (06:34)
[2018-08-12] MEDS: FUROSEMIDE 40 MG (LASIX) TAB PO SCH (06:34)
[2018-08-12 08:00] VITALS: BP 110/67
--- NOTE | 2018-08-12 09:26 | Cardiology Progress Note ---
Subjective Date Seen by Provider: Aug 12, 2018 Time Seen by Provider: 09:24 Subjective/Events-last exam patient is laying down in bed, complaining of headache. Denied any chest pain. Review of Systems General: No Chills, No Night Sweats; Fatigue, Malaise; No Appetite, No Other HEENT: No Head Aches, No Visual Changes, No Eye Pain, No Ear Pain, No Dysphasia, No Sinus Congestion, No Post Nasal Drip, No Sore Throat, No Other Pulmonary: Dyspnea, Cough; No Pleuritic Chest Pain, No Other Cardiovascular: No: Chest Pain, Palpitations, Orthopnea, Paroxysmal Noc. Dyspnea, Edema, Lt Headedness, Other Objective-Cardiology Exam Last Set of Vital Signs Vital Signs 08/12/18 08:00 Temp 97.6 Pulse 86 Resp 20 B/P (MAP) 110/67 (81) Pulse Ox 96 O2 Delivery High Flow N/C O2 Flow Rate 5.00 Capillary Refill : Less Than 3 Seconds I&O Intake and Output 08/12/18 00:00 Intake Total 1370 ml Output Total 2000 ml Balance -630 ml Intake Oral 1370 ml Output Urine Total 2000 ml General: Alert, Oriented X3, Cooperative HEENT: Atraumatic, PERRLA Neck: Supple, No JVD, No Thyromegaly Lungs: Clear to Auscultation, Normal Air Movement Heart: Regular Rate, Normal S1, Normal S2, No Murmurs Abdomen: Normal Bowel Sounds, Soft, No Tenderness, No Hepatosplenomegaly, No Masses Extremities: No Clubbing, No Cyanosis, No Edema, Normal Pulses, No Tenderness/Swelling Skin: No Rashes, No Breakdown, No Significant Lesion Neuro: Normal Gait, Normal Speech, Strength at 5/5 X4 Ext, Normal Tone, Sensation Intact Psych/Mental Status: Mental Status NL, Mood NL A/P-Cardiology Admission Diagnosis Acute respiratory failure Congestive heart failure, acute on chronic left ventricular systolic dysfunction, nonischemic cardiomyopathy Hypertension Migraine headache Assessment/Plan Congestive heart failure, acute on chronic left ventricular systolic d ysfunction, ejection fraction 30 percent. Continue on aggressive diuresis. Continue to monitor Status post acute respiratory failure, better at this time, still having some shortness of breath Migraine headache, persistent, multiple drug use. History of methamphetamine use, managed by primary care physician. History of syncope, monitor for now, no further episodes of syncope were reported Complete heart block with bradycardia, transient due to beta blockers and calcium channel blockers treatment, no further syncopal episodes were reported. Continue to monitor. History of sinus tachycardia, better at this time. Continue to monitor Mild to moderate coronary artery disease per cardiac catheterization done in 2014 and September 2017. Continue to monitor Hypertension, restarted metoprolol and Entresto, continue to monitor blood pressure. COPD, status post respiratory failure, oxygen dependent, followed by Dr. Trivedi History of migraine, having significant headache, managed by primary care physician Obesity, BMI is 29. We discussed weight loss. History of anxiety, depression. History of diabetes mellitus, followed and managed by primary care physician. History of noncompliance with medication. Multiple addictions mainly prescription medications. Currently doing well. Tobaccoism, we discussed smoking cessation. History of methamphetamine use Mild carotid stenosis, nonobstructive disease by ultrasound in November 2016. Okay for discharge from cardiology standpoint and follow-up as an outpatient, educated on compliance with medication Clinical Quality Measures DVT/VTE Risk/Contraindication: Risk Factor Score Per Nursin RFS Level Per Nursing on Admit: 4+=Very High FRANCESCO GOULD MD Aug 12, 2018 09:26
--- NOTE | 2018-08-12 10:25 | NUR ---
PALLIATIVE CARE RN has arranged for [facility] to provide services under their josé care. They are aware of the difficulties with this admission and are will to attempt assist. Patient is also aware of her role in compliance and is agreeable to this. She will discharge today to home where she lives with her daughter. All clinical information x orders sent to [facility].
[2018-08-12] MEDS: SACUBITRIL/VALSARTAN 24/26 MG (ENTRESTO) TABLET PO SCH (10:43)
[2018-08-12] MEDS: LORazepam 0.5 MG (ATIVAN) TABLET PO PRN (10:43)
[2018-08-12] MEDS: meTOprolol TARTRATE 25 MG (LOPRESSOR) TABLET PO SCH (10:44)
--- NOTE | 2018-08-12 10:50 | Discharge Summary-Hospitalist ---
Diagnosis/Chief Complaint Date of Admission Aug 10, 2018 at 13:51 Date of Discharge Discharge Date: Aug 12, 2018 Admission Diagnosis Assessment: Severe end stage COPD Refusing meds Smoker MIRIAM Plan: IV steroids Nebs O2 [facility]osp[facility] at [facility] Discharge Diagnosis (1) Respiratory distress Status: Acute (2) CHF (congestive heart failure) Status: Acute (3) Smoker Status: Chronic (4) Methamphetamine abuse Status: Chronic (5) Non-compliance Status: Chronic Discharge Summary Discharge Physical Exam Allergies: Coded Allergies: buspirone (Verified Allergy, Mild, 05/02/17) Made"legs Shaky" amitriptyline (Verified Allergy, Unknown, 05/02/17) " MAKES ME DO WEIRD THINGS LIKE WALK IN MY SLEEP AND HAVE HALLUCINATIONS." Vitals & I&Os Vital Signs Date Time Temp Pulse Resp B/P (MAP) Pulse Ox O2 Delivery O2 Flow Rate FiO2 08/12/18 11:35 08/12/18 10:33 98 Nasal Cannula 2.00 08/12/18 08:00 97.6 86 20 General Appearance: No Apparent Distress, WD/WN, Chronically ill Respiratory: Chest Non Tender, Lungs Clear, Normal Breath Sounds, No Accessory Muscle Use, No Respiratory Distress Cardiovascular: Regular Rate, Rhythm, No Edema, No Gallop, No JVD, No Murmur, Normal Peripheral Pulses Neurologic/Psychiatric: Alert, Oriented x3, No Motor/Sensory Deficits, Normal Mood/Affect Hospital Course Was the Problem List Reviewed?: Yes Patient was admitted but then refused most meds and recs. Meth use in the past and non-compliance precluded anything other than a hospice enrollment and poor prognosis. Labs (last 24 hrs) Microbiology 08/10/18 Urine Culture - Final, Complete 3 or more isolates Patient resulted labs reviewed. Discussion & Recommendations Discharge Planning: <30 minutes discharge planning Discharge Home Medications: Active Scripts Active Reported Hydroxyzine HCl 25 Mg Tablet 25-50 Mg PO TID PRN Tylenol Extra Strength (Acetaminophen) 500 Mg Tablet 1,000 Mg PO Q6H PRN Advil (Ibuprofen) 200 Mg Tablet 400-800 Mg PO TID PRN Advair 500-50 Diskus (Fluticasone/Salmeterol) 1 Each Blst.w.dev 1 Puff IH BID Entresto 24 mg-26 mg Tablet (Sacubitril/Valsartan) 1 Each Tablet 1 Tab PO BID Aspirin EC (Aspirin) 81 Mg Tablet.dr 81 Mg PO DAILY Spiriva (Tiotropium [place]) 1 Inh Aerp 1 Cap IH DAILY Furosemide 20 Mg Tablet 20 Mg PO DAILY LAST FILLED #90 04-27-18 Iprat-Albut 0.5-3(2.5) mg/3 ml (Ipratropium/Albuterol Sulfate) 3 Ml Ampul.neb 3 Ml IH QID PRN Glimepiride 1 Mg Tablet 1 Mg PO DAILY PRN Metoprolol Tartrate 25 Mg Tablet 12.5 Mg PO BID LAST FILLED #60 04-28-18 TAKES 1/2 (25MG) TABLET Ventolin Hfa (Albuterol Sulfate) 1 Puff Puff 2 Puff IH Q4H PRN Instructions to patient/family Please see electronic discharge instructions given to patient. Clinical Quality Measures DVT/VTE Risk/Contraindication: Risk Factor Score Per Nursin RFS Level Per Nursing on Admit: 4+=Very High Problem Qualifiers (1) CHF (congestive heart failure): Heart failure type: unspecified Heart failure chronicity: unspecified Qualified Codes: I50.9 - Heart failure, unspecified RODY ALDANA DO Aug 12, 2018 10:50
== END 2018-08-12 11:35 | disposition hospice, home (50) | DRG 291 ==
LOC: EDUNIT# 10:50 → ER 10:51 → 4TH 13:51
PROVIDERS: ADMIT Internal Medicine; ATTEND Internal Medicine
DX: I11.0 Hypertensive heart disease with heart failure (principal); I50.23 Acute on chronic systolic (congestive) heart failure; J96.00 Acute respiratory failure, unspecified whether with hypoxia or hypercapnia; I44.2 Atrioventricular block, complete; J44.1 Chronic obstructive pulmonary disease with (acute) exacerbation; F17.210 Nicotine dependence, cigarettes, uncomplicated; F15.10 Other stimulant abuse, uncomplicated; D50.9 Iron deficiency anemia, unspecified; F41.9 Anxiety disorder, unspecified; F31.9 Bipolar disorder, unspecified; E11.9 Type 2 diabetes mellitus without complications; K21.0 Gastro-esophageal reflux disease with esophagitis; K59.09 Other constipation; K52.9 Noninfective gastroenteritis and colitis, unspecified; I25.10 Atherosclerotic heart disease of native coronary artery without angina pectoris; E78.00 Pure hypercholesterolemia, unspecified; I25.5 Ischemic cardiomyopathy; G43.909 Migraine, unspecified, not intractable, without status migrainosus; E66.01 Morbid (severe) obesity due to excess calories; I65.29 Occlusion and stenosis of unspecified carotid artery; Z68.29 Body mass index [BMI] 29.0-29.9, adult; G47.30 Sleep apnea, unspecified; Z91.19 Patient's noncompliance with other medical treatment and regimen; Z99.81 Dependence on supplemental oxygen; Z87.19 Personal history of other diseases of the digestive system
CPT/HCPCS: 36415; 71045; 80053; 80061; 80306; 81000; 82805; 83690; 83735; 83874; 83880; 84484; 85025; 85027; 85610; 85730; 86141; 87088; 93005; 93041; 93306; 94640; 94644; 94760; 96365; 96375

== ENCOUNTER → 2018-09-06 | Outpatient (CLI) | payer OTHER ==
[~2018-09-06] MED LIST changes: +ACET-2267 PO; +FLUT1DIS27 IH; +HYDR-700 PO; +RT-ALBUTEROL SULF 2.5 MG/3 ML PRE-MIX VIAL INH ONE
== END ==
LOC: RT 12:09
PROVIDERS: ATTEND Nurse Practitioner Family
DX: J96.20 Acute and chronic respiratory failure, unspecified whether with hypoxia or hypercapnia (principal); J44.9 Chronic obstructive pulmonary disease, unspecified; J30.9 Allergic rhinitis, unspecified
CPT/HCPCS: 94060; 94726; 94729

== ENCOUNTER → 2020-06-20 | Outpatient (CLI) | payer MEDICAID ==
[~2020-06-20] MED LIST changes: +ASPI-1238 PO; -ASPI-983 PO; -CETI10TA20 PO; +CETI10TA49 PO; -CLIN300C11 PO; +CLIN300C12 PO; -D-ME118S7 PO; -GLIM1TAB PO; +GLIM1TAB4 PO; -HYDR50TA3 PO; +HYDR50TA6 PO; +LINE600T12 PO; -LINE600T5 PO; +MULT-567 PO; -MULT1TAB69 PO; +NABU-90 PO; -NABU750T PO; -PANT40TA3 PO; +PANT40TA52 PO; +PROM118S5 PO; -RISP1TAB3 PO; +RISP1TAB93 PO; -RT-ALBUTEROL SULF 2.5 MG/3 ML PRE-MIX VIAL INH ONE; -SACU1TAB PO; +SACU1TAB2 PO; -ZOLP6.2525 PO; +ZOLP6.2538 PO
== END ==
LOC: CARD 13:44
PROVIDERS: ATTEND Internal Medicine Cardiovascular Disease
DX: I11.9 Hypertensive heart disease without heart failure (principal)
CPT/HCPCS: 93306

== ENCOUNTER 2020-07-31 08:42 | Observation (INO) | payer MEDICAID ==
[~2020-07-31] VITALS: Ht 168 cm; Wt 142.0 kg
[~2020-07-31 08:42] MED LIST changes: -NABU-90 PO; +NABU-95 PO
[2020-07-31] MEDS ORDERED: RT-ALBUTEROL/IPRATROPIUM 3 ML (DUONEB) VIAL ONE (08:55)
--- NOTE | 2020-07-31 09:10 | ED Respiratory ---
General Chief Complaint: Respiratory Problems Stated Complaint: CP,SOB Nursing Triage Note: ARRIVED VIA EMS FROM HOME WITH SOA/CP X2 DAYS. PT IS ON HOSPICE AND HAS HAD THE HOSPICE NURSE AT HER HOUSE NINE TIMES IN THE LAST TWO DAYS. PT NOW WANTS TO BE A FULL CODE. PT WAS GIVEN ATIVAN 2MG AND A DUONEB IN ROUTE. Source: patient, EMS History of Present Illness Date Seen by Provider: July 31, 2020 Time Seen by Provider: 08:40 Initial Comments Patient is a 55-year-old female who presents to the emergency department today with a chief complaint of shortness of breath onset over the course of the last 2 days. Patient is on hospice for end-stage COPD and congestive heart failure and EMS states that she is called out the hospice nurse at least 9 times in the last couple of days. Patient complains of cough. She complains of some heavy sharp chest pain. She complains of a little burning with urination. She complains of lower extremity swelling. EMS reports that her sats were 96% when they arrived but she was not moving any air so the patient was placed on BiPAP. She was given a total of 2 mg of Ativan IV prior to arrival in the emergency department. She was not given aspirin. Patient does not have any history that she knows of coronary artery disease. She does have COPD and uses inhalers at home. She is chronically on 2 L of oxygen per nasal cannula but is increased it to 3 in the last couple of days. She states that she has a little neck pain and headache which she has frequently. She is on a fentanyl patch and supplemental hydrocodone. She has not had any pain medicine this morning. Patient states that she would like to be intubated if that became necessary and also would like to be a full CODE STATUS at this time until her children could get here. She would like to rescind her hospice care at this time. All other review of systems reviewed and negative except as stated above. Timing/Duration: yesterday, getting worse Severity: severe Prior Episodes/Possible Cause: occasional episodes Modifying Factors: Improves With Albuterol Inhaler, Improves With Albuterol Nebulizer Associated Symptoms: chest pain/soreness, fever/chills (Subjective fever), headache, shortness of breath, wheezing Allergies and Home Medications Allergies Coded Allergies: buspirone (Verified Allergy, Mild, 05/02/17) Made"legs Shaky" amitriptyline (Verified Allergy, Unknown, 05/02/17) " MAKES ME DO WEIRD THINGS LIKE WALK IN MY SLEEP AND HAVE HALLUCINATIONS." Home Medications Albuterol Sulfate 6.7 Gm Hfa.aer.ad, 2 PUFF INH Q4H PRN for SHORTNESS OF BREATH, (Reported) Last Action: Reviewed Aspirin 81 Mg Tablet.dr, 81 MG PO DAILY, (Reported) Last Action: Held Benzonatate 100 Mg Capsule, 100 MG PO QID PRN for COUGH, (Reported) Last Action: Continued Bumetanide 1 Mg Tablet, 1 MG PO DAILY, (Reported) Last Action: Continued Carvedilol 6.25 Mg Tablet, 3.125 MG PO BID, (Reported) TAKES OF A 3.125MG TAB Last Action: Held Fentanyl 1 Each Patch.td72, 50 MCG TD Q72H, (Reported) Last Action: Continued Fentanyl 1 Each Patch.td72, 100 MCG TD Q72H, (Reported) Last Action: Continued Fluoxetine HCl 20 Mg Capsule, 20 MG PO DAILY, (Reported) Last Action: Continued Furosemide 20 Mg Tablet, 20 MG PO DAILY, (Reported) TAKES 20MG +40MG TO EQUAL 60MG DAILY Last Action: Continued Furosemide 40 Mg Tablet, 40 MG PO DAILY, (Reported) TAKES 20MG +40MG TO EQUAL 60MG DAILY Last Action: Continued Glimepiride 1 Mg Tablet, 1 MG PO DAILY PRN for WHEN TAKING PREDNISONE, (Reported) Last Action: Held Hydrocodone/Acetaminophen 1 Each Tablet, 1 EA PO Q6H PRN for PAIN-MODERATE (5- 7), (Reported) Last Action: Continued Ipratropium/Albuterol Sulfate 3 Ml Ampul.neb, 3 ML IH QID PRN for SHORTNESS OF BREATH, (Reported) Last Action: Reviewed Lorazepam 1 Mg Tablet, 4 MG PO Q4H PRN for ANXIETY/SOB, (Reported) TAKES 4 (1MG) TABS Last Action: Reviewed Morphine Sulfate 100 Mg/5 Ml Solution, 0.5-1 ML PO Q15M PRN for AIR HUNGER, (Reported) Last Action: Reviewed Nitrofurantoin Macrocrystal 100 Mg Capsule, 100 MG PO DAILY, (Reported) Last Action: Held Olanzapine 10 Mg Tablet, 10 MG PO HS, (Reported) Last Action: Converted Potassium Chloride 10 Meq Capsule.er, 10 MEQ PO DAILY, (Reported) Last Action: Held Prednisone 10 Mg Tab, 10 MG PO DAILY, (Reported) Last Action: Held Promethazine HCl 12.5 Mg Tablet, 12.5-25 MG PO Q6H PRN for NAUSEA/VOMITING-2ND LINE, (Reported) Last Action: Reviewed Sacubitril/Valsartan 1 Each Tablet, 1 TAB PO BID, (Reported) Last Action: Held Patient Home Medication List Home Medication List Reviewed: Yes Review of Systems Review of Systems Constitutional: see HPI EENTM: no symptoms reported Respiratory: short of breath, wheezing Cardiovascular: chest pain Gastrointestinal: no symptoms reported Genitourinary: dysuria Musculoskeletal: neck pain Skin: no symptoms reported Psychiatric/Neurological: Anxiety All Other Systems Reviewed Negative Unless Noted: Yes Past Ssrzuqw-Icjipe-Nxwvya Hx Patient Social History Alcohol Use: Past History Drug of Choice: + IV METH, ALSO SMOKES IT; MULTIPLE BENZODIAZEPINE OD'S Smoking Status: Former Smoker Type Used: Cigarettes 2nd Hand Smoke Exposure: Yes Recent Infectious Disease Expo: No Recent Hopitalizations: Yes Immunizations Up To Date Tetanus Booster (TDap): Unknown Date of Pneumonia Vaccine: Apr 30, 2018 Date of Influenza Vaccine: Apr 30, 2018 Seasonal Allergies Seasonal Allergies: No Past Medical History Surgeries: Yes (EGD/COLONOSCOPY; CARDIAC CATH 09/18/17--NO INTERVENTION) Cardiac Respiratory: Yes (O2 AT 2-3L/NC) Pneumonia, Chronic Bronchitis, Sleep Apnea, COPD Currently Using CPAP: No Currently Using BIPAP: Yes Cardiac: Yes Cardiomyopathy, Coronary Artery Disease, High Cholesterol, Hypertension Neurological: Yes Headaches /Migraines 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 Disorders: No 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 Disorders: Denies 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 Sexually Transmitted Disease: No HIV/AIDS: No Genitourinary: No Gastrointestinal: Yes (GASTRITIS AND ESOPHAGEAL CANDIDIASIS 04/2017) Gastroesophageal Reflux, Gastrointestinal Bleed, Chronic Constipation, Chronic Diarrhea, Esophagitis, Ulcer Musculoskeletal: Yes (chronic shoulder and neck pain) Endocrine: Yes (DM- only while on steriods per pt) Diabetes, Non-Insulin dep HEENT: No Cancer: No Psychosocial: Yes (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; POLYSUBSTANCE ABUSE) Sleep Difficulties, Anxiety, Suicide Attempts, Bipolar, Depression Integumentary: No Blood Disorders: Yes (ANEMIA) Adverse Reaction/Blood Tranf: No Family Medical History Cancer 03 MOTHER, Onset:66 (LUNG ) 09 BROTHER (LUNG ) Congestive heart failure 03 FATHER Heart Disease, Cancer Physical Exam Vital Signs - First Documented 07/31/20 08:53 Temp 36.5 Pulse 96 Resp 16 B/P (MAP) 135/96 (109) Pulse Ox 100 O2 Delivery NIV Bilevel O2 Flow Rate 2.00 Capillary Refill : Less Than 3 Seconds Height: 5'9.00" Weight: 197lbs. 0.9oz. [id number]; 48.00 BMI Method:Stated General Appearance: WD/WN, moderate distress Eyes: Bilateral Eye Normal Inspection, Bilateral Eye PERRL, Bilateral Eye EOMI Neck: normal inspection Respiratory: chest non-tender, wheezing (Diffuse expiratory wheezes noted in all lung shay, moderate respiratory distress with labored breathing. Patient is actually removed from the BiPAP after arrival and given a DuoNeb.) Cardiovascular: regular rate, rhythm Gastrointestinal: non tender, soft Extremities: normal range of motion, normal inspection, pedal edema Neurologic/Psychiatric: alert, normal mood/affect, oriented x 3 Skin: normal color, warm/dry Focused Exam Lactate Level 07/31/20 10:32: Lactic Acid Level 1.28 Lactic Acid Level Laboratory Tests Test 07/31/20 10:32 Lactic Acid Level 1.28 MMOL/L (0.50-2.00) Progress/Results/Core Measures Suspected Sepsis Recent Fever Within 48 Hours: No Infection Criteria Present: Suspected New Infection New/Unexplained Altered Menta: No Sepsis Screen: No Definite Risk SIRS Temperature: Pulse: 96 Respiratory Rate: 16 Laboratory Tests 07/31/20 08:58: White Blood Count 13.7H Blood Pressure 135 /96 Mean: 109 07/31/20 10:32: Lactic Acid Level 1.28 Laboratory Tests 07/31/20 08:58: Creatinine 1.07, Platelet Count 508H, Total Bilirubin 0.4 07/31/20 10:32: INR Comment 0.9 Results/Orders Lab Results Laboratory Tests Test 07/31/20 08:58 07/31/20 09:06 07/31/20 09:13 07/31/20 10:32 Range/Units White Blood Count 13.7 H 4.3-11.0 10^3/uL Red Blood Count 3.29 L 3.80-5.11 10^6/uL Hemoglobin 9.5 L 11.5-16.0 g/dL Hematocrit 28 L 35-52 % Mean Corpuscular Volume 85 80-99 fL Mean Corpuscular Hemoglobin 29 25-34 pg Mean Corpuscular Hemoglobin Concent 34 32-36 g/dL Red Cell Distribution Width 13.0 10.0-14.5 % Platelet Count 508 H 130-400 10^3/uL Mean Platelet Volume 8.8 L 9.0-12.2 fL Immature Granulocyte % (Auto) 1 % Neutrophils (%) (Auto) 70 42-75 % Lymphocytes (%) (Auto) 17 12-44 % Monocytes (%) (Auto) 10 0-12 % Eosinophils (%) (Auto) 2 0-10 % Basophils (%) (Auto) 0 0-10 % Neutrophils # (Auto) 9.6 H 1.8-7.8 10^3/uL Lymphocytes # (Auto) 2.3 1.0-4.0 10^3/uL Monocytes # (Auto) 1.3 H 0.0-1.0 10^3/uL Eosinophils # (Auto) 0.3 0.0-0.3 10^3/uL Basophils # (Auto) 0.0 0.0-0.1 10^3/uL Immature Granulocyte # (Auto) 0.2 H 0.0-0.1 10^3/uL Sodium Level 121 *L 135-145 MMOL/L Potassium Level 3.6 3.6-5.0 MMOL/L Chloride Level 79 L 98-107 MMOL/L Carbon Dioxide Level 32 21-32 MMOL/L Anion Gap 10 5-14 MMOL/L Blood Urea Nitrogen 14 7-18 MG/DL Creatinine 1.07 0.60-1.30 MG/DL Estimat Glomerular Filtration Rate 53 BUN/Creatinine Ratio 13 Glucose Level 112 H 70-105 MG/DL Calcium Level 9.1 8.5-10.1 MG/DL Corrected Calcium 9.1 8.5-10.1 MG/DL Total Bilirubin 0.4 0.1-1.0 MG/DL Aspartate Amino Transf (AST/SGOT) 29 5-34 U/L Alanine Aminotransferase (ALT/SGPT) 33 0-55 U/L Alkaline Phosphatase 84 40-136 U/L Troponin I < 0.028 <0.028 NG/ML B-Type Natriuretic Peptide 97.6 <100.0 PG/ML Total Protein 6.8 6.4-8.2 GM/DL Albumin 4.0 3.2-4.5 GM/DL Urine Color YELLOW Urine Clarity CLEAR Urine pH 6.0 5-9 Urine Specific [place] <=1.005 1.016-1.022 Urine Protein NEGATIVE NEGATIVE Urine Glucose (UA) NEGATIVE NEGATIVE Urine Ketones NEGATIVE NEGATIVE Urine Nitrite NEGATIVE NEGATIVE Urine Bilirubin NEGATIVE NEGATIVE Urine Urobilinogen 0.2 < = 1.0 MG/DL Urine Leukocyte Esterase TRACE H NEGATIVE Urine RBC (Auto) TRACE-I NEGATIVE Urine RBC NONE /HPF Urine WBC NONE /HPF Urine Squamous Epithelial Cells 0-2 /HPF Urine Crystals NONE /LPF Urine Bacteria LARGE H /HPF Urine Casts NONE /LPF Urine Mucus NEGATIVE /LPF Urine Culture Indicated NO Blood Gas Puncture Site RT RAD Blood Gas Patient Temperature 36.4 Arterial Blood pH 7.43 7.37-7.43 Arterial Blood Partial Pressure CO2 51 H 35-45 MMHG Arterial Blood Partial Pressure O2 82 79-93 MMHG Arterial Blood HCO3 34 H 23-27 MMOL/L Arterial Blood Total CO2 35.8 H 21.0-31.0 MMOL/L Arterial Blood Oxygen Saturation 97 94-100 % Arterial Blood Base Excess 9.5 H -2.5-2.5 MMOL/L Torsten Test YES-POS Blood Gas Ventilator Setting NO Blood Gas Inspired Oxygen 2 L Prothrombin Time 12.5 12.2-14.7 SEC INR Comment 0.9 0.8-1.4 Activated Partial Thromboplast Time 29 24-35 SEC Lactic Acid Level 1.28 0.50-2.00 MMOL/L My Orders Orders - JOE GAMBLE MD Albuterol/Ipra Inhalation Soln (Duoneb I (07/31/20 08:55) Cbc With Automated Diff (07/31/20 09:05) Comprehensive Metabolic Panel (07/31/20 09:05) Blood Culture (07/31/20 09:05) Sputum Culture (07/31/20 09:05) Urinalysis (07/31/20 09:05) Urine Culture (07/31/20 09:05) Protime With Inr (07/31/20 09:05) Partial Thromboplastin Time (07/31/20 09:05) Chest 1 View, Ap/Pa Only (07/31/20 09:05) Ed Iv/Invasive Line Start (07/31/20 09:05) Ed Iv/Invasive Line Start (07/31/20 09:05) Troponin I (07/31/20 09:05) Vital Signs Adult Sepsis Patie Q15M (07/31/20 09:05) O2 (07/31/20 09:05) Remove Rings In Anticipation O (07/31/20 09:05) Lactic Acid Analyzer (07/31/20 09:05) Methylprednisolone Sod Succ (Solu-Medrol (07/31/20 09:15) Albuterol/Ipra Inhalation Soln (Duoneb I (07/31/20 09:15) Svn Small Volume Nebulizer (07/31/20 09:05) Arterial Blood Gas (07/31/20 09:13) Arterial Blood Draw (07/31/20 ) Ns Iv 500 Ml (Sodium Chloride 0.9%) (07/31/20 09:45) Ns Iv 500 Ml (Sodium Chloride 0.9%) (07/31/20 09:29) Medications Given in ED Current Medications Medications Dose Ordered Sig/Vladimir Route Start Time Stop Time Status Last Admin Dose Admin Albuterol/ Ipratropium 3 ml STK-MED ONCE .ROUTE 07/31/20 08:55 07/31/20 09:04 DC 07/31/20 09:06 3 ML Methylprednisolone Sodium Succinate 125 mg ONCE ONCE IVP 07/31/20 09:15 07/31/20 09:16 DC 07/31/20 09:27 125 MG Sodium Chloride 500 ml @ 30 mls/hr [id number] ONCE IV 07/31/20 09:45 08/01/20 02:24 07/31/20 09:38 30 MLS/HR Vital Signs/I&O 07/31/20 07/31/20 07/31/20 08:53 08:53 09:06 Temp 36.5 Pulse 96 Resp 16 B/P (MAP) 135/96 (109) Pulse Ox 100 97 O2 Delivery NIV Bilevel Nasal Cannula Nasal Cannula O2 Flow Rate 2.00 2.00 Capillary Refill : Less Than 3 Seconds 2 Blood Pressure Mean: 109 Progress Note : Time: 10:41 Progress Note Patient resting comfortably, has decreased wheezing when auscultated anteriorly but significant wheezing still when auscultated posteriorly. Patient's oxygen saturations on 3 L per nasal cannula are running 90-92. Her blood pressure is 106 systolic. Patient has received a 500 cc normal saline bolus. She does not have signs of congestive heart failure at this time on her chest x-ray. BNP is pending. Lactic acid is pending. Her blood gas looks good. I do not think that the patient needs to be put back on BiPAP at this time. She is not demonstrating increased work of breathing. We will admit her for an acute exa cerbation of COPD and her hyponatremia with serum sodium of 121. ECG Initial ECG Impression Date: July 31, 2020 Initial ECG Impression Time: 08:53 Initial ECG Rate: 95 Initial ECG Rhythm: Normal Sinus Initial ECG Impression: Nonspecific Changes Comment Significant artifact at the baseline with no overt signs of ST segment elevation or depression Diagnostic Imaging Diagonstic Imaging: Xray Plain Films/CT/US/NM/MRI: chest Comments [facility] [place], [place] NAME: [facility] REC#: [id number] PT STATUS: REG ER : 1965 PHYSICIAN: JOE GAMBLE MD ADMIT DATE: 07/31/20/ER Draft Date of Exam:07/31/20 CHEST 1 VIEW, AP/PA ONLY INDICATION: Chest pain and shortness of breath. Time of exam: 9:13 AM Correlation is made with prior chest 08/10/2018. Heart size is stable. There is some minimal linear scarring or atelectasis in the left base. Otherwise, the lungs are clear. No infiltrate is detected. No effusion or pneumothorax is identified. IMPRESSION: Minimal left basilar discoid atelectasis. No other significant abnormality is detected. Dictated on workstation # [id number] Dict: 07/31/20 0947 Trans: 07/31/20 0951 SOFIYA [id number] Interpreted by: WILLIAM ZAVALA MD Electronically signed by: Critical Care Note Critical Care Start Time: 08:40 Stop Time: 10:00 Total Time (minutes) Critical care time 45 minutes in the evaluation and management of this patient in respiratory distress. Time includes management of oxygenation status, review of the medical record, little fluid resuscitation for transient low blood pressure. Time also includes discussion with family practice physician and multiple reevaluations of the patient. Departure Communication (Admissions) Time/Spoke to Admitting Phy: 11:[address] Martinez accepts the patient for admission Impression Primary Impression: Acute exacerbation of chronic obstructive pulmonary disease (COPD) Additional Impressions: Hyponatremia History of congestive heart failure Disposition: ADMITTED INPATIENT Condition: Improved Admissions Decision to Admit Reason: Admit from ER (General) Decision to Admit/Date: July 31, 2020 Time/Decision to Admit Time: 10:40 Departure-Patient Inst. [place] [facility] [place] Primary Care Physician ALIZA CARTER (Family) Primary Care Physician JOE GAMBLE MD July 31, 2020 09:10
[2020-07-31] MEDS ORDERED: RT-ALBUTEROL/IPRATROPIUM 3 ML (DUONEB) VIAL INH ONE (09:15)
[2020-07-31] MEDS ORDERED: methylPREDNISolone 125 MG (Solu-MEDROL) VIAL IVP ONE (09:15)
[2020-07-31 09:20] LABS: ABG BASE EXCESS 9.5 MMOL/L (-2.5-2.5); ABG OXYGEN SATURATION 97 % (94-100); ABG PCO2 51 MMHG (35-45); ABG PH 7.43 (7.37-7.43); ABG PO2 82 MMHG (79-93); ABG TCO2 35.8 MMOL/L (21.0-31.0)
[2020-07-31 09:21] LABS: ALLENS TEST YES-POS; INSPIRED O2 2 L; PATIENT TEMP 36.4; VENTILATOR NO
[2020-07-31] MEDS ORDERED: NS IV 500 ML 500 ML ONE (09:29)
[2020-07-31 09:31] LABS: BASOPHILS % (AUTO) 0 % (0-10); EOSINOPHILS # (AUTO) 0.3 10^3/uL (0.0-0.3); EOSINOPHILS % (AUTO) 2 % (0-10); HEMATOCRIT 28 % (35-52); HEMOGLOBIN 9.5 g/dL (11.5-16.0); LYMPHOCYTES # (AUTO) 2.3 10^3/uL (1.0-4.0); LYMPHOCYTES % (AUTO) 17 % (12-44); MEAN CORPUSCULAR HEMOGLOBIN 29 pg (25-34); MEAN CORPUSCULAR HGB CONC 34 g/dL (32-36); MEAN CORPUSCULAR VOLUME 85 fL (80-99); MEAN PLATELET VOLUME 8.8 fL (9.0-12.2); MONOCYTES # (AUTO) 1.3 10^3/uL (0.0-1.0); MONOCYTES % (AUTO) 10 % (0-12); NEUTROPHILS # (AUTO) 9.6 10^3/uL (1.8-7.8); NEUTROPHILS % (AUTO) 70 % (42-75); PLATELET COUNT 508 10^3/uL (130-400); WHITE BLOOD COUNT 13.7 10^3/uL (4.3-11.0)
[2020-07-31 09:37] LABS: BILIRUBIN,URINE NEGATIVE (NEGATIVE); CLARITY,URINE CLEAR; COLOR,URINE YELLOW; GLUCOSE, URINE (UA) NEGATIVE (NEGATIVE); KETONES,URINE NEGATIVE (NEGATIVE); LEUKOCYTE ESTERASE ,URINE TRACE (NEGATIVE); NITRITE,URINE NEGATIVE (NEGATIVE); PROTEIN,URINE NEGATIVE (NEGATIVE)
[2020-07-31 09:38] LABS: CHLORIDE 79 MMOL/L (98-107); POTASSIUM 3.6 MMOL/L (3.6-5.0)
[2020-07-31 09:40] LABS: CALCIUM 9.1 MG/DL (8.5-10.1)
[2020-07-31 09:41] LABS: GLUCOSE 112 MG/DL (70-105); SODIUM 121 MMOL/L (135-145); TOTAL PROTEIN 6.8 GM/DL (6.4-8.2)
[2020-07-31 09:42] LABS: CARBON DIOXIDE 32 MMOL/L (21-32)
[2020-07-31 09:43] LABS: BILIRUBIN,TOTAL 0.4 MG/DL (0.1-1.0)
[2020-07-31 09:44] LABS: ALKALINE PHOSPHATASE 84 U/L (40-136)
[2020-07-31 09:45] LABS: CREATININE SERUM 1.07 MG/DL (0.60-1.30); GFR ESTIMATED 53
[2020-07-31] MEDS ORDERED: NS IV 500 ML 500 ML IV ONE (09:45)
[2020-07-31 09:46] LABS: BUN/CREATININE RATIO 13
[2020-07-31 09:47] LABS: BACTERIA,URINE LARGE /HPF
[2020-07-31 09:47] LABS: ALANINE AMINOTRANSFERASE 33 U/L (0-55)
[2020-07-31 09:48] LABS: SQUAMOUS EPITHELIAL CELL,UR 0-2 /HPF
--- NOTE | 2020-07-31 09:51 | Diagnostic Imaging Report ---
INDICATION: Chest pain and shortness of breath. Time of exam: 9:13 AM Correlation is made with prior chest 08/10/2018. Heart size is stable. There is some minimal linear scarring or atelectasis in the left base. Otherwise, the lungs are clear. No infiltrate is detected. No effusion or pneumothorax is identified. IMPRESSION: Minimal left basilar discoid atelectasis. No other significant abnormality is detected. Dictated by: Dictated on workstation # [id number]
[2020-07-31 10:58] LABS: INR 0.9 (0.8-1.4); PROTHROMBIN TIME PATIENT 12.5 SEC (12.2-14.7)
[2020-07-31 12:08] VITALS: BP 140/101
--- NOTE | 2020-07-31 12:54 | History & Physical ---
HPI History of Present Illness: 55 yo female comes from home with difficulty breathing for 2-3 days, she was on hospice, but states they are "hardly giving any" morphine or medication for her shortness of breath. She decided she wanted to be admitted and revoke hospice due to her shortness of breath. She is very anxious and rocking in bed, stating she has to urinate, but has a alexandra in. She denies fever, no increase in cough. Admits nausea and vomiting. Source: patient Date seen by provider: July 31, 2020 Time Seen by Provider: 11:45 Attending Physician Jaison Martinez MD PCP Center/[facility] [place] Consult Date of Admission July 31, 2020 at 11:28 Home Medications Home Medications Reviewed patient Home Medication Reconciliation performed by pharmacy medication reconciliations orthodontic technician assistant and/or nursing. Patients Allergies have been reviewed. Allergies Coded Allergies: buspirone (Verified Allergy, Mild, 05/02/17) Made"legs Shaky" amitriptyline (Verified Allergy, Unknown, 05/02/17) " MAKES ME DO WEIRD THINGS LIKE WALK IN MY SLEEP AND HAVE HALLUCINATIONS." LPZ-Vwimzo-Fzyhge Hx Patient Social History Drug of Choice: + IV METH, ALSO SMOKES IT; MULTIPLE BENZODIAZEPINE OD'S Smoking Status: Former Smoker 2nd Hand Smoke Exposure: Yes Recent Hopitalizations: Yes Alcohol Use?: No Have you traveled recently?: No Immunizations Up To Date Tetanus Booster (TDap): Unknown Date of Pneumonia Vaccine: Apr 30, 2018 Date of Influenza Vaccine: Apr 30, 2018 Past Medical History Past Medical History 1. HTN 2. COPD 3. Asthma 4.Chronic Migraines 5. Anxiety 6. Depression 7. Endometrial hypertrophy 8. DMII 9. HLP- with elevated triglycerides 10. Chronic Insomnia 11. Gastritis 12. Methamphetamine abuse 13. Several admissions for overdose of benzodiazapine 14. Acute systolic heart failure 2014 15. Bipolar Disorder Past Surgical History 1. EGD- Gastritis [facility] 2. Colonoscopy- [facility] Family Medical History Significant Family History: Heart Disease, Cancer Family History: Cancer 03 MOTHER, Onset:66 (LUNG ) 09 BROTHER (LUNG ) Congestive heart failure 03 FATHER Review of Systems (CHC) Constitutional: No fever Respiratory: cough, short of breath, wheezing Cardiovascular: chest pain Gastrointestinal: No diarrhea; nausea, vomiting Genitourinary: frequency Psychiatric/Neurological: Anxiety Reviewed Test Results Reviewed Test Results Lab Laboratory Tests Test 07/31/20 08:58 07/31/20 09:06 07/31/20 09:13 07/31/20 10:32 Range/Units White Blood Count 13.7 H 4.3-11.0 10^3/uL Red Blood Count 3.29 L 3.80-5.11 10^6/uL Hemoglobin 9.5 L 11.5-16.0 g/dL Hematocrit 28 L 35-52 % Mean Corpuscular Volume 85 80-99 fL Mean Corpuscular Hemoglobin 29 25-34 pg Mean Corpuscular Hemoglobin Concent 34 32-36 g/dL Red Cell Distribution Width 13.0 10.0-14.5 % Platelet Count 508 H 130-400 10^3/uL Mean Platelet Volume 8.8 L 9.0-12.2 fL Immature Granulocyte % (Auto) 1 % Neutrophils (%) (Auto) 70 42-75 % Lymphocytes (%) (Auto) 17 12-44 % Monocytes (%) (Auto) 10 0-12 % Eosinophils (%) (Auto) 2 0-10 % Basophils (%) (Auto) 0 0-10 % Neutrophils # (Auto) 9.6 H 1.8-7.8 10^3/uL Lymphocytes # (Auto) 2.3 1.0-4.0 10^3/uL Monocytes # (Auto) 1.3 H 0.0-1.0 10^3/uL Eosinophils # (Auto) 0.3 0.0-0.3 10^3/uL Basophils # (Auto) 0.0 0.0-0.1 10^3/uL Immature Granulocyte # (Auto) 0.2 H 0.0-0.1 10^3/uL Sodium Level 121 *L 135-145 MMOL/L Potassium Level 3.6 3.6-5.0 MMOL/L Chloride Level 79 L 98-107 MMOL/L Carbon Dioxide Level 32 21-32 MMOL/L Anion Gap 10 5-14 MMOL/L Blood Urea Nitrogen 14 7-18 MG/DL Creatinine 1.07 0.60-1.30 MG/DL Estimat Glomerular Filtration Rate 53 BUN/Creatinine Ratio 13 Glucose Level 112 H 70-105 MG/DL Calcium Level 9.1 8.5-10.1 MG/DL Corrected Calcium 9.1 8.5-10.1 MG/DL Total Bilirubin 0.4 0.1-1.0 MG/DL Aspartate Amino Transf (AST/SGOT) 29 5-34 U/L Alanine Aminotransferase (ALT/SGPT) 33 0-55 U/L Alkaline Phosphatase 84 40-136 U/L Troponin I < 0.028 <0.028 NG/ML Total Protein 6.8 6.4-8.2 GM/DL Albumin 4.0 3.2-4.5 GM/DL Urine Color YELLOW Urine Clarity CLEAR Urine pH 6.0 5-9 Urine Specific [place] <=1.005 1.016-1.022 Urine Protein NEGATIVE NEGATIVE Urine Glucose (UA) NEGATIVE NEGATIVE Urine Ketones NEGATIVE NEGATIVE Urine Nitrite NEGATIVE NEGATIVE Urine Bilirubin NEGATIVE NEGATIVE Urine Urobilinogen 0.2 < = 1.0 MG/DL Urine Leukocyte Esterase TRACE H NEGATIVE Urine RBC (Auto) TRACE-I NEGATIVE Urine RBC NONE /HPF Urine WBC NONE /HPF Urine Squamous Epithelial Cells 0-2 /HPF Urine Crystals NONE /LPF Urine Bacteria LARGE H /HPF Urine Casts NONE /LPF Urine Mucus NEGATIVE /LPF Urine Culture Indicated NO Blood Gas Puncture Site RT RAD Blood Gas Patient Temperature 36.4 Arterial Blood pH 7.43 7.37-7.43 Arterial Blood Partial Pressure CO2 51 H 35-45 MMHG Arterial Blood Partial Pressure O2 82 79-93 MMHG Arterial Blood HCO3 34 H 23-27 MMOL/L Arterial Blood Total CO2 35.8 H 21.0-31.0 MMOL/L Arterial Blood Oxygen Saturation 97 94-100 % Arterial Blood Base Excess 9.5 H -2.5-2.5 MMOL/L Torsten Test YES-POS Blood Gas Ventilator Setting NO Blood Gas Inspired Oxygen 2 L Prothrombin Time 12.5 12.2-14.7 SEC INR Comment 0.9 0.8-1.4 Activated Partial Thromboplast Time 29 24-35 SEC Lactic Acid Level 1.28 0.50-2.00 MMOL/L Radiology CXR 07/31: IMPRESSION: Minimal left basilar discoid atelectasis. No other significant abnormality is detected. Physical Exam-(CHC) Physical Exam Vital Signs VS - Last 72 Hours, by Label 07/31/20 07/31/20 07/31/20 07/31/20 08:53 08:53 09:06 11:39 Temp 36.5 Pulse 96 87 Resp 16 18 B/P (MAP) 135/96 (109) 110/92 Pulse Ox 100 97 97 O2 Delivery NIV Bilevel Nasal Cannula Nasal Cannula Room Air O2 Flow Rate 2.00 2.00 07/31/20 07/31/20 07/31/20 07/31/20 12:08 12:15 12:31 13:07 Temp 36.1 36.1 Pulse 93 99 99 Resp 14 B/P (MAP) 140/101 (114) Pulse Ox 97 97 O2 Delivery Nasal Cannula Nasal Cannula O2 Flow Rate 3.00 3.00 FiO2 28 07/31/20 07/31/20 15:47 16:00 Temp 36.2 Pulse 98 Resp 20 B/P (MAP) 123/81 (95) Pulse Ox 93 94 O2 Delivery Nasal Cannula Nasal Cannula O2 Flow Rate 3.00 3.00 Capillary Refill : Less Than 3 Seconds General Appearance: moderate distress Respiratory: accessory muscle use, wheezing Cardiovascular: regular rate, rhythm Neurologic/Psychiatric: alert Skin: normal color, warm/dry Assessment/Plan Assessment/Plan Admission Status: Observation (1) Acute exacerbation of chronic obstructive pulmonary disease (COPD) Status: Acute Assessment & Plan: Solumedrol, Duonebs. Improved after treatments in ER, ABG with hypercapnea, but not severe and not acidotic. Maintaining oxygenation on nasal cannula. (2) Hyponatremia Status: Acute Assessment & Plan: Uncertain etiology, NS for now, monitor closely given CHF history. (3) Congestive heart failure Status: Chronic Assessment & Plan: Echo on 06/20/20 with EF at lower end of normal and grade 1 diastolic dysfunction, check BNP Qualifiers: Qualified Codes: I50.42 - Chronic combined systolic (congestive) and diastolic (congestive) heart failure (4) Anxiety Status: Chronic Assessment & Plan: Has severe underlying anxiety, will give ativan prn. (5) Obesity Status: Chronic Qualifiers: (6) Chronic pain Status: Chronic Assessment & Plan: Home fentanyl patch in place, IV morphine prn. JAISON MARTINEZ MD July 31, 2020 12:54
[2020-07-31] MEDS ORDERED: LORazepam INJ 2 MG/ML (ATIVAN) VIAL ONE (12:57)
[2020-07-31] MEDS ORDERED: RT-ALBUTEROL/IPRATROPIUM 3 ML (DUONEB) VIAL IH PRN ×2 (13:00)
[2020-07-31] MEDS ORDERED: RT-ALBUTEROL/IPRATROPIUM 3 ML (DUONEB) VIAL IH SCH ×2 (13:00→14:00)
[2020-07-31 13:07] VITALS: BP 140/101
[2020-07-31] MEDS: NS IV 1000 ML 1,000 ML IV SCH ×2 (13:09→13:22)
[2020-07-31] MEDS: LORazepam INJ 2 MG/ML (ATIVAN) VIAL IVP PRN ×3 (13:09→20:56)
[2020-07-31] MEDS: ONDANSETRON 4 MG/2 ML (SDV) Z0FRAN IVP PRN (15:07)
[2020-07-31] MEDS ORDERED: PROMETHAZINE INJ 25 MG/ML (PHENERGAN) AMP IVP PRN (15:15)
[2020-07-31 16:00] VITALS: BP 123/81
[2020-07-31] MEDS ORDERED: SALIVA STIMULANT MOUTH SPRAY (BIOTENE) 1.5 OZ MM PRN (16:00)
[2020-07-31] MEDS ORDERED: RT-ALBUTEROL/IPRATROPIUM 3 ML (DUONEB) VIAL INH PRN (16:00)
[2020-07-31] MEDS ORDERED: BISACODYL 10 MG SUPP (DULCOLAX) PR PRN (16:00)
[2020-07-31] MEDS ORDERED: ACETAMINOPHEN 650 MG SUPP (TYLENOL) PR PRN (16:00)
[2020-07-31] MEDS ORDERED: GLYCOPYRROLATE 0.2 MG/ML (ROBINUL) 2 ML VIAL IV PRN (16:00)
[2020-07-31] MEDS ORDERED: ARTIFICAL TEARS 0.4 ML UNIT DOSE (REFRESH PLUS) OU PRN (16:00)
[2020-07-31] MEDS ORDERED: LORazepam INJ 2 MG/ML (ATIVAN) VIAL IVP PRN (16:00)
[2020-07-31] MEDS ORDERED: BENZ-36 PO (16:16)
[2020-07-31] MEDS ORDERED: PROM12.511 PO (16:16)
[2020-07-31] MEDS ORDERED: OLAN10TA19 PO (16:16)
[2020-07-31] MEDS ORDERED: FENT1PAT11 TD (16:16)
[2020-07-31] MEDS ORDERED: FURO40TA4 PO (16:16)
[2020-07-31] MEDS ORDERED: PRD10T PO (16:16)
[2020-07-31] MEDS ORDERED: CARV6.252 PO (16:16)
[2020-07-31] MEDS ORDERED: NITR100C PO (16:16)
[2020-07-31] MEDS ORDERED: FLUO20CA46 PO (16:16)
[2020-07-31] MEDS ORDERED: FENT1PAT9 TD (16:16)
[2020-07-31] MEDS ORDERED: HYDR-3820 PO (16:16)
[2020-07-31] MEDS: morphine INJ 4 MG/ML 1 ML (VIAL/SYRINGE) IVP PRN (16:16)
[2020-07-31] MEDS ORDERED: POTA10CA43 PO (16:16)
[2020-07-31] MEDS ORDERED: LORA-405 PO (16:16)
[2020-07-31] MEDS ORDERED: MORP100S3 PO (16:16)
[2020-07-31] MEDS ORDERED: BUME1TAB8 PO (16:16)
[2020-07-31] MEDS ORDERED: RT-ALBUINH INH (16:16)
[2020-07-31] MEDS ORDERED: BENZONATATE 100 MG (TESSALON) CAPSULE PO PRN (16:45)
[2020-07-31] MEDS ORDERED: FENTANYL PATCH REMOVAL TP SCH ×2 (16:59)
[2020-07-31] MEDS ORDERED: fentaNYL PATCH 100 MCG (DURAGESIC) TD SCH (17:00)
[2020-07-31] MEDS ORDERED: fentaNYL PATCH 50 MCG (DURAGESIC) TD SCH (17:00)
[2020-07-31] MEDS ORDERED: methylPREDNISolone 125 MG (Solu-MEDROL) VIAL IVP SCH (18:00)
[2020-07-31 19:43] VITALS: BP 108/59
[2020-07-31] MEDS: SACUBITRIL/VALSARTAN 24/26 MG (ENTRESTO) TABLET PO SCH (20:40)
[2020-07-31] MEDS: OLANZapine 5 MG (ZyPREXA) TAB PO SCH (20:40)
[2020-07-31] MEDS: RT-ALBUTEROL/IPRATROPIUM 3 ML (DUONEB) VIAL IH PRN (20:43)
[2020-08-01 00:40] VITALS: BP 102/64
[2020-08-01] MEDS: methylPREDNISolone 125 MG (Solu-MEDROL) VIAL IVP SCH ×4 (00:47→17:24)
[2020-08-01] MEDS: LORazepam INJ 2 MG/ML (ATIVAN) VIAL IVP PRN ×6 (01:08→20:04)
[2020-08-01] MEDS: NS IV 1000 ML 1,000 ML IV SCH (01:11)
[2020-08-01] MEDS: ONDANSETRON 4 MG/2 ML (SDV) Z0FRAN IVP PRN (01:25)
[2020-08-01 04:05] VITALS: BP 93/59
[2020-08-01 08:00] VITALS: BP 148/96
[2020-08-01] MEDS: ASPIRIN E.C. 81 MG (ECOTRIN) TAB PO SCH (08:51)
[2020-08-01] MEDS: SACUBITRIL/VALSARTAN 24/26 MG (ENTRESTO) TABLET PO SCH ×2 (08:51→20:04)
[2020-08-01] MEDS: FUROSEMIDE 20 MG (LASIX) TAB PO SCH (08:51)
[2020-08-01] MEDS: BUMETANIDE 1 MG (BUMEX) TAB PO SCH (08:51)
[2020-08-01] MEDS: FLUoxetine HCL 20 MG (PROzac) CAP PO SCH (08:51)
[2020-08-01] MEDS: FUROSEMIDE 40 MG (LASIX) TAB PO SCH (08:51)
[2020-08-01 08:58] LABS: HEMATOCRIT 28 % (35-52); HEMOGLOBIN 9.3 g/dL (11.5-16.0); MEAN CORPUSCULAR HEMOGLOBIN 28 pg (25-34); MEAN CORPUSCULAR HGB CONC 33 g/dL (32-36); MEAN CORPUSCULAR VOLUME 85 fL (80-99); MEAN PLATELET VOLUME 8.6 fL (9.0-12.2); PLATELET COUNT 520 10^3/uL (130-400); WHITE BLOOD COUNT 12.6 10^3/uL (4.3-11.0)
[2020-08-01 09:15] LABS: POTASSIUM 4.5 MMOL/L (3.6-5.0)
[2020-08-01 09:16] LABS: CALCIUM 9.3 MG/DL (8.5-10.1)
[2020-08-01 09:20] LABS: CREATININE SERUM 1.44 MG/DL (0.60-1.30)
[2020-08-01 12:00] VITALS: BP 125/78
--- NOTE | 2020-08-01 15:07 | Progress Note ---
Subjective Subjective/Events-last exam Afebrile, has been very anxious. Requested to go on comfort care, then requested back to aggressive care again yesterday afternoon. She states her family doesn't want her to use comfort care or hospice, but she doesn't know what she wants to do. This morning she is breathing more easily, but she is requiring significant amounts of pain medication and anxiety medication in order to not be extremely agitated. Discussed that hospice physician had noted that Aylin seemed to not do well alone, and they wondered if she might do better at a facility with hospice services so she wouldn't be alone, and Aylin agreed she doesn't like to be alone, but she doesn't want to go to a nursing facility either. Focused Exam Lactate Level 07/31/20 10:32: Lactic Acid Level 1.28 Objective Exam Last Set of Vital Signs Vital Signs Date Time Temp Pulse Resp B/P (MAP) Pulse Ox O2 Delivery O2 Flow Rate FiO2 08/01/20 12:30 103 08/01/20 12:00 36.1 20 125/78 (94) 93 Nasal Cannula 3.00 07/31/20 13:07 28 Capillary Refill : Less Than 3 Seconds I&O Intake and Output 08/01/20 00:00 Intake Total 1462 ml Output Total 1825 ml Balance -363 ml Intake Oral 962 ml IV Total 500 ml Output Urine Total 1825 ml # Bowel Movements 1 Daily Weight Change No General: Other (sleeping deeply, difficult to arouse but once awoken is alert and normally interacting) Lungs: Other (decreased air movement, wheezing throughout) Heart: Regular Rate Extremities: Other (1+ pitting edema) Psych/Mental Status: Mental Status NL Results/Procedures Lab Laboratory Tests 07/31/20 16:09: Glucometer 214H 07/31/20 21:25: Glucometer 170H 07/31/20 21:36: Glucometer 162H 08/01/20 08:52: White Blood Count 12.6H, Red Blood Count 3.27L, Hemoglobin 9.3L, Hematocrit 28L, Mean Corpuscular Volume 85, Mean Corpuscular Hemoglobin 28, Mean Corpuscular Hemoglobin Concent 33, Red Cell Distribution Width 13.1, Platelet Count 520H, Mean Platelet Volume 8.6L, Sodium Level 122*L, Potassium Level 4.5, Chloride Level 83L, Carbon Dioxide Level 29, Anion Gap 10, Blood Urea Nitrogen 21H, Creatinine 1.44H, Estimat Glomerular Filtration Rate 38, BUN/Creatinine Ratio 15, Glucose Level 201H, Calcium Level 9.3 08/01/20 11:43: Glucometer 194H Microbiology 07/31/20 Urine Culture - Preliminary, Resulted Escherichia coli Radiology CXR 07/31: IMPRESSION: Minimal left basilar discoid atelectasis. No other significant abnormality is detected. Assessment/Plan Assessment/Plan (1) Acute exacerbation of chronic obstructive pulmonary disease (COPD) Status: Acute Assessment & Plan: Solumedrol, Duonebs. Improved after treatments in ER, ABG with hypercapnea, but not severe and not acidotic. Maintaining oxygenation on nasal cannula. (2) Hyponatremia Status: Acute Assessment & Plan: Uncertain etiology, NS for now, monitor closely given CHF history. 07/31 Na not improved and she has persistent edema, suspect hypervolemic hyp onatremia. Stop IVF, check urine electrolytes. Continue home diuretics. Will also check CT chest for underlying lung pathology. (3) Congestive heart failure Status: Chronic Assessment & Plan: Echo on 06/20/20 with EF at lower end of normal and grade 1 diastolic dysfunction, check BNP 08/01 BNP normal, suspect swelling may be related to chronic steroid use. Qualifiers: Qualified Codes: I50.42 - Chronic combined systolic (congestive) and diastolic (congestive) heart failure (4) Anxiety Status: Chronic Assessment & Plan: Has severe underlying anxiety, will give ativan prn, discussed with her the difficulty of using such high doses of benzo and opiate for her pain and anxiety in light of her respiratory compromise, particularly outpatient. (5) Obesity Status: Chronic Qualifiers: (6) Chronic pain Status: Chronic Assessment & Plan: Home fentanyl patch in place, IV morphine prn. (7) Hyperglycemia Status: Acute Assessment & Plan: Normally gets high blood sugars with steroids, sometimes uses PO hypoglycemics at those times, start diabetic diet and sliding scale insulin, resume PO if requiring frequent insulin doses. (8) DVT prophylaxis Status: Acute Assessment & Plan: Enoxaparin JAISON NORWOOD MD August 01, 2020 15:07
--- NOTE | 2020-08-01 15:22 | Diagnostic Imaging Report ---
EXAMINATION: CT chest without contrast. TECHNIQUE: Multiple contiguous axial images were obtained through the chest without the use of intravenous contrast. All CT scans use one or more of the following dose optimizing techniques: automated exposure control, MA and/or KvP adjustment based on patient size and exam type or iterative reconstruction. HISTORY: Hyponatremia. COMPARISON: CTA chest 02/18/2018 FINDINGS: Thyroid: The thyroid is normal. Mediastinum: Heart size is normal without significant pericardial effusion. Calcifications of the aorta and coronary vessels. Thoracic aorta is normal in caliber. No suspicious lymphadenopathy. Lungs and airways: The lungs are clear without consolidation, pleural effusion, or pneumothorax. There are mild background emphysematous changes of the lungs. Linear atelectasis or scarring within the lung bases. No suspicious pulmonary lesion. Airways are patent. Upper abdomen: Diffuse hypoattenuation in the liver which can be seen with hepatic steatosis. Musculoskeletal: Degenerative changes of the spine without suspicious osseous lesion or compression fracture. IMPRESSION: 1. No acute abnormality in the chest. 2. COPD. 3. Hepatic steatosis. Dictated by: Dictated on workstation # [id number]
[2020-08-01] MEDS ORDERED: ENOXAPARIN 40 MG/0.4 ML (LOVENOX) SYR SQ SCH (15:45)
[2020-08-01 16:00] VITALS: BP 137/75
[2020-08-01] MEDS: morphine INJ 4 MG/ML 1 ML (VIAL/SYRINGE) IVP PRN ×2 (16:02→21:34)
[2020-08-01] MEDS: inSUlin ASPART (NovoLOG) 1 UNIT/0.01 ML (CHARGE PER UNIT) SC SCH ×2 (16:03→21:37)
[2020-08-01] MEDS: ENOXAPARIN 40 MG/0.4 ML (LOVENOX) SYR SC SCH (16:03)
[2020-08-01 19:58] VITALS: BP 123/70
[2020-08-01] MEDS: OLANZapine 5 MG (ZyPREXA) TAB PO SCH (20:04)
[2020-08-01] MEDS: RT-ALBUTEROL/IPRATROPIUM 3 ML (DUONEB) VIAL IH PRN (22:28)
[2020-08-02] VITALS: BP 113/59
[2020-08-02] MEDS: LORazepam INJ 2 MG/ML (ATIVAN) VIAL IVP PRN ×7 (00:35→22:23)
[2020-08-02] MEDS: methylPREDNISolone 125 MG (Solu-MEDROL) VIAL IVP SCH ×2 (00:35→05:42)
[2020-08-02 04:00] VITALS: BP 126/73
[2020-08-02] MEDS: ENOXAPARIN 40 MG/0.4 ML (LOVENOX) SYR SC SCH ×2 (05:43→16:44)
[2020-08-02 05:49] LABS: HEMATOCRIT 28 % (35-52); HEMOGLOBIN 9.1 g/dL (11.5-16.0); MEAN CORPUSCULAR HEMOGLOBIN 28 pg (25-34); MEAN CORPUSCULAR HGB CONC 33 g/dL (32-36); MEAN CORPUSCULAR VOLUME 86 fL (80-99); MEAN PLATELET VOLUME 8.7 fL (9.0-12.2); PLATELET COUNT 615 10^3/uL (130-400)
[2020-08-02 06:00] LABS: POTASSIUM 4.4 MMOL/L (3.6-5.0)
[2020-08-02 06:01] LABS: CALCIUM 9.3 MG/DL (8.5-10.1)
[2020-08-02 06:06] LABS: CREATININE SERUM 1.65 MG/DL (0.60-1.30)
[2020-08-02] MEDS: inSUlin ASPART (NovoLOG) 1 UNIT/0.01 ML (CHARGE PER UNIT) SC SCH ×4 (06:09→20:54)
[2020-08-02 07:30] VITALS: BP 106/70
[2020-08-02] MEDS ORDERED: predniSONE 10 MG TAB PO SCH (09:00)
[2020-08-02] MEDS: SACUBITRIL/VALSARTAN 24/26 MG (ENTRESTO) TABLET PO SCH ×2 (09:33→20:11)
[2020-08-02] MEDS: ASPIRIN E.C. 81 MG (ECOTRIN) TAB PO SCH (09:33)
[2020-08-02] MEDS: FUROSEMIDE 20 MG (LASIX) TAB PO SCH (09:33)
[2020-08-02] MEDS: BUMETANIDE 1 MG (BUMEX) TAB PO SCH (09:33)
[2020-08-02] MEDS: FLUoxetine HCL 20 MG (PROzac) CAP PO SCH (09:33)
[2020-08-02] MEDS: ONDANSETRON 4 MG/2 ML (SDV) Z0FRAN IVP PRN ×2 (09:33→18:38)
[2020-08-02] MEDS: FUROSEMIDE 40 MG (LASIX) TAB PO SCH (09:34)
[2020-08-02 11:13] VITALS: BP 115/78
[2020-08-02] MEDS: predniSONE 10 MG TAB PO SCH (11:46)
--- NOTE | 2020-08-02 11:52 | Physical Therapy Evaluation ---
PT Evaluation-General Medical Diagnosis Admission Date July 31, 2020 at 11:28 Medical Diagnosis: acute COPD exacerbation/hyponatremia Onset Date: July 31, 2020 Therapy Diagnosis Therapy Diagnosis: debility Height/Weight Height (Feet): 5 Height (Inches): 9.00 Weight (Pounds): 197 Weight (Ounces): 0.9 Precautions Precautions/Isolations: Fall Prevention, Standard Precautions Referral Physician: Juan Reason for Referral: Evaluation/Treatment Medical History Pertinent Medical History: CAD, COPD, DM, Heart Failure, HTN, Smoking Additional Medical History polysubstance use Current History EMS secondary to SOA and CP x 2 days (was on hospice then revoked this and is now a full code per report) Reviewed History: Yes Social History Home: Apartment Current Living Status: Alone Prior Prior Level of Function SCALE: Activities may be completed with or without assistive devices. 4-Pbfjufsyap-xsnpcfs completes the activity by him/herself with no assistance from a helper. 5-Set-up or Clean-up Assistance-helper sets up or cleans up; patient completes activity. [place] assists only prior to or following the activity. 4-Supervision or Touching Assistance-helper provides verbal cues and/or touching/steadying and/or contact guard assistance as patient completes activity. Assistance may be provided throughout the activity or intermittently. 3-Partial/Moderate Assistance-helper does LESS THAN HALF the effort. [place] lifts, holds or supports trunk or limbs, but provides less than half the effort. 2-Substantial/Maximal Assistance-helper does MORE THAN HALF the effort. [place] lifts or holds trunk or limbs and provides more than half the effort. 0-Kubfbmtlx-avgljh does ALL the effort. Patient does none of the effort to complete the activity. Or, the assistance of 2 or more helpers is required for the patient to complete the activity. If activity was not attempted, code reason: 7-Patient Refused. 9-Not Applicable-not attempted and the patient did not perform the activity before the current illness, exacerbation or injury. 10-Not Attempted due to Environmental Limitations-(lack of equipment, weather restraints, etc.). 88-Not Attempted due to Medical Conditions or Safety Concerns. Bed Mobility: 6 Transfers (B,C,W/C): 6 Gait: 6 Indoor Mobility (Ambulation): Independent Stairs: Not [place] Prior Devices Use: Walker PT Evaluation-Current Subjective Patient agrees to PT. Objective Patient Orientation: Normal For Age Attachments: Oxygen (4L NC) ROM/Strength ROM Lower Extremities bilateral LE WFL Strength Lower Extremities 4/5 grossly bilateral LE Integumentary/Posture Posture WFL Neuromuscular (Tone, Coordination, Reflexes) grossly intact Sensory Vision: Wears Glasses Hearing: Functional Transfers Roll Left to Right (QC): 6 Lying to Sitting/Side of Bed(Q: 6 Sit to Stand (QC): 4 (SBA) Chair/Dmg-td-Fluqc Xfer(QC): 4 (SBA) Gait Does the Patient Walk?: Yes Mode of Locomotion: Walk Anticipated Mode of Locomotion: Walk Walk 10 feet (QC): 4 (SBA) Walk 50 ft with 2 Turns(QC): 4 (SBA) Walk 150 ft (QC): 4 (SBA) Distance: 275' Gait Assistive Device: FWW Comments/Gait Description steady pace Wheelchair Training Does the Pt Use a Wheelchair?: No Stairs 1 Step (curb) (QC): 9 4 Steps (QC): 9 12 Steps (QC): 9 Balance Sitting Static: Normal Sitting Dynamic: Normal Standing Static: Good Standing Dynamic: Good Picking up an Object (QC): 6 (seated position) Assessment/Needs 55 y.o. female, will be seen short term by skilled PT to address functional mobility to ensure safe return to maximum LOF. Rehab Potential: Guarded Post Rehab Potential-Barriers: end stage COPD PT Fpc Goals Fpc Goals PT [employer] Goals Time Frame: Aug 10, 2020 Roll Left & Right (QC): 6 Sit to Lying (QC): 6 Lying-Sitting on Side/Bed(QC): 6 Sit to Stand (QC): 6 Chair/Jds-rw-Akgmu Xfer(QC): 6 Toilet Transfer (QC): 6 Walk 10 feet (QC): 6 Walk 50ft with 2 Turns (QC): 6 Walk 150 ft (QC): 6 PT Plan Problem List Problem List: Activity Tolerance Treatment/Plan Treatment Plan: Continue Plan of Care Treatment Plan: Education, Functional Activity Aayush, Functional Strength, Gait, Safety, Therapeutic Exercise Treatment Duration: Aug 10, 2020 Frequency: 6 times per week Estimated Hrs Per Day: .25 hour per day Patient and/or Family Agrees t: Yes Time/GCodes Time In: 1120 Time Out: 1138 Total Billed Treatment Time: 18 [facility] KELSEA [facility]HAN PT August 02, 2020 11:52
[2020-08-02 16:00] VITALS: BP 125/76
--- NOTE | 2020-08-02 16:19 | Progress Note ---
Subjective Subjective/Events-last exam Afebrile, feeling better today, wanting to go home david and wants to resume hospice. Focused Exam Lactate Level 07/31/20 10:32: Lactic Acid Level 1.28 Objective Exam Last Set of Vital Signs Vital Signs Date Time Temp Pulse Resp B/P (MAP) Pulse Ox O2 Delivery O2 Flow Rate FiO2 08/02/20 11:13 37.0 90 20 115/78 (90) 91 Nasal Cannula 3.00 07/31/20 13:07 28 Capillary Refill : Less Than 3 Seconds I&O Intake and Output 08/02/20 00:00 Intake Total 2520 ml Output Total 2775 ml Balance -255 ml Intake Oral 1520 ml IV Total 1000 ml Output Urine Total 2775 ml # Bowel Movements 1 General: Alert, Mild Distress Lungs: Other (decreased air movement, wheezing throughout) Heart: Regular Rate Extremities: Other (1+ pitting edema) Neuro: Normal Speech Psych/Mental Status: Mood NL Results/Procedures Lab Laboratory Tests 08/01/20 20:51: Glucometer 213H 08/02/20 05:37: White Blood Count 15.0H, Red Blood Count 3.20L, Hemoglobin 9.1L, Hematocrit 28L, Mean Corpuscular Volume 86, Mean Corpuscular Hemoglobin 28, Mean Corpuscular Hemoglobin Concent 33, Red Cell Distribution Width 13.2, Platelet Count 615H, Mean Platelet Volume 8.7L, Sodium Level 128L, Potassium Level 4.4, Chloride Level 88L, Carbon Dioxide Level 28, Anion Gap 12, Blood Urea Nitrogen 30H, Creatinine 1.65H, Estimat Glomerular Filtration Rate 32, BUN/Creatinine Ratio 18, Glucose Level 212H, Calcium Level 9.3 08/02/20 11:21: Glucometer 194H Microbiology 07/31/20 Blood Culture - Preliminary, Resulted No growth 07/31/20 Urine Culture - Final, Complete Escherichia coli Radiology CXR 07/31: IMPRESSION: Minimal left basilar discoid atelectasis. No other significant abnormality is detected. Assessment/Plan Assessment/Plan (1) Acute exacerbation of chronic obstructive pulmonary disease (COPD) Status: Acute Assessment & Plan: Solumedrol, Duonebs. Improved after treatments in ER, ABG with hypercapnea, but not severe and not acidotic. Maintaining oxygenation on nasal cannula. (2) Hyponatremia Status: Acute Assessment & Plan: Uncertain etiology, NS for now, monitor closely given CHF history. - Na not improved and she has persistent edema, suspect hypervolemic hyponatremia. Stop IVF, check urine electrolytes. Continue home diuretics. Will also check CT chest for underlying lung pathology. 08/02 CT chest okay, Na improving on diuretics. (3) Congestive heart failure Status: Chronic Assessment & Plan: Echo on 06/20/20 with EF at lower end of normal and grade 1 diastolic dysfunction, check BNP 08/01 BNP normal, suspect swelling may be related to chronic steroid use. Qualifiers: Qualified Codes: I50.42 - Chronic combined systolic (congestive) and diastolic (congestive) heart failure (4) Anxiety Status: Chronic Assessment & Plan: Has severe underlying anxiety, will give ativan prn, discussed with her the difficulty of using such high doses of benzo and opiate for her pain and anxiety in light of her respiratory compromise, particularly outpatient. (5) Obesity Status: Chronic Qualifiers: (6) Chronic pain Status: Chronic Assessment & Plan: Home fentanyl patch in place, IV morphine prn. (7) Hyperglycemia Status: Acute Assessment & Plan: Normally gets high blood sugars with steroids, sometimes uses PO hypoglycemics at those times, start diabetic diet and sliding scale insulin, resume PO if requiring frequent insulin doses. (8) DVT prophylaxis Status: Acute Assessment & Plan: Enoxaparin (9) Discharge planning issues Status: Acute Assessment & Plan: Working on placement to help with anxiety and closer monitoring on hospice. JAISON NORWOOD MD August 02, 2020 16:19
[2020-08-02 20:00] VITALS: BP 122/63
[2020-08-02] MEDS: OLANZapine 5 MG (ZyPREXA) TAB PO SCH (20:11)
[2020-08-02] MEDS: morphine INJ 4 MG/ML 1 ML (VIAL/SYRINGE) IVP PRN ×2 (20:21→22:22)
[2020-08-03] VITALS: BP 122/61
[2020-08-03] MEDS: ONDANSETRON 4 MG/2 ML (SDV) Z0FRAN IVP PRN (00:46)
[2020-08-03] MEDS: morphine INJ 4 MG/ML 1 ML (VIAL/SYRINGE) IVP PRN ×3 (00:46→09:32)
[2020-08-03] MEDS: LORazepam INJ 2 MG/ML (ATIVAN) VIAL IVP PRN ×4 (00:46→11:35)
[2020-08-03 04:00] VITALS: BP 118/75
[2020-08-03] MEDS: ENOXAPARIN 40 MG/0.4 ML (LOVENOX) SYR SC SCH (04:14)
[2020-08-03 05:46] LABS: HEMOGLOBIN 9.5 g/dL (11.5-16.0); MEAN PLATELET VOLUME 9.5 fL (9.0-12.2); WHITE BLOOD COUNT 10.9 10^3/uL (4.3-11.0)
[2020-08-03 06:05] LABS: CALCIUM 9.6 MG/DL (8.5-10.1)
[2020-08-03 06:10] LABS: CREATININE SERUM 1.51 MG/DL (0.60-1.30)
[2020-08-03] MEDS: inSUlin ASPART (NovoLOG) 1 UNIT/0.01 ML (CHARGE PER UNIT) SC SCH ×2 (06:14→11:11)
[2020-08-03 08:04] VITALS: BP 93/47
[2020-08-03 08:16] VITALS: BP 105/51
[2020-08-03] MEDS ORDERED: TRIM/SULFAMETH 160/800 (SEPTRA DS) TAB PO SCH (08:30)
[2020-08-03] MEDS: BUMETANIDE 1 MG (BUMEX) TAB PO SCH (08:42)
[2020-08-03] MEDS: SACUBITRIL/VALSARTAN 24/26 MG (ENTRESTO) TABLET PO SCH (08:42)
[2020-08-03] MEDS: predniSONE 10 MG TAB PO SCH (08:42)
[2020-08-03] MEDS: FLUoxetine HCL 20 MG (PROzac) CAP PO SCH (08:42)
[2020-08-03] MEDS: ASPIRIN E.C. 81 MG (ECOTRIN) TAB PO SCH (08:42)
[2020-08-03] MEDS: FUROSEMIDE 20 MG (LASIX) TAB PO SCH (10:00)
[2020-08-03] MEDS: FUROSEMIDE 40 MG (LASIX) TAB PO SCH (10:00)
[2020-08-03] MEDS ORDERED: PROMETHAZINE INJ 25 MG/ML (PHENERGAN) AMP IVP PRN (10:15)
[2020-08-03] MEDS ORDERED: Trimethoprim/Sulfamethoxazole PO (11:19)
[2020-08-03 11:25] VITALS: BP 98/55
--- NOTE | 2020-08-03 11:44 | Physical Therapy Progress Note ---
Therapy Progress Note Patient had just toileted self independently and is now requesting ativan due to increase anxiety and SOA. RN notified. Patient refused PT. Plan dismissal to [place] with hospice. 1 ref ([id number]) KELSEA MAHAN PT August 03, 2020 11:44
--- NOTE | 2020-08-03 12:07 | Discharge Summary ---
Discharge Summary Hospital Course Problems/Diagnosis: (1) Hospice care patient Status: Chronic Assessment & Plan: Originally revoked hospice to come to the hospital due to severe anxiety and shortness of breath, but she did decide she wanted hospice services on d/c. (2) Acute exacerbation of chronic obstructive pulmonary disease (COPD) Status: Acute Assessment & Plan: Solumedrol, Duonebs. Improved after treatments in ER, ABG with hypercapnea, but not severe and not acidotic. Maintaining oxygenation on nasal cannula. Discharged on home chronic prednisone (3) Hyponatremia Status: Resolved Resolution Date/Time: 08/03/20 @ 12:05 Assessment & Plan: Uncertain etiology, NS for now, monitor closely given CHF history. - Na not improved and she has persistent edema, suspect hypervolemic hyponatremia. Stop IVF, check urine electrolytes. Continue home diuretics. Will also check CT chest for underlying lung pathology. 08/02 CT chest okay, Na improving on diuretics. (4) Congestive heart failure Status: Chronic Assessment & Plan: Echo on 06/20/20 with EF at lower end of normal and grade 1 diastolic dysfunction, check BNP 08/01 BNP normal, suspect swelling may be related to chronic steroid use. Qualifiers: Qualified Codes: I50.42 - Chronic combined systolic (congestive) and diastolic (congestive) heart failure (5) Anxiety Status: Chronic Assessment & Plan: Has severe underlying anxiety, will give ativan prn, discussed with her the difficulty of using such high doses of benzo and opiate for her pain and anxiety in light of her respiratory compromise, particularly outpatient. (6) Obesity Status: Chronic Qualifiers: (7) Chronic pain Status: Chronic Assessment & Plan: Home fentanyl patch in place, IV morphine prn. (8) Hyperglycemia Status: Acute Assessment & Plan: Normally gets high blood sugars with steroids, sometimes uses PO hypoglycemics at those times, start diabetic diet and sliding scale insulin, resume PO if requiring frequent insulin doses. (9) Discharge planning issues Status: Acute Assessment & Plan: Discharged to [facility] with hospice services. Nettie to write controlled meds for comfort. Hospital Course Date of Admission: July 31, 2020 at 11:28 Admission Diagnosis : Family Physician/Provider: Alondra Jacob Date of Discharge: 08/03/20 Discharge Diagnosis: See problem list Hospital Course: See problem list Labs and Pending Lab Test: Laboratory Tests 08/02/20 16:30: Glucometer 152H 08/02/20 20:38: Glucometer 178H 08/03/20 05:32: White Blood Count 10.9, Red Blood Count 3.28L, Hemoglobin 9.5L, Hematocrit 29L, Mean Corpuscular Volume 87, Mean Corpuscular Hemoglobin 29, Mean Corpuscular Hemoglobin Concent 33, Red Cell Distribution Width 13.7, Platelet Count 217, Mean Platelet Volume 9.5, Percent Immature Platelet Fraction 2.6, Sodium Level 137, Potassium Level 4.0, Chloride Level 93L, Carbon Dioxide Level 32, Anion Gap 12, Blood Urea Nitrogen 32H, Creatinine 1.51H, Estimat Glomerular Filtration Rate 36, BUN/Creatinine Ratio 21, Glucose Level 127H, Calcium Level 9.6 08/03/20 10:57: Glucometer 141H Microbiology 07/31/20 Blood Culture - Preliminary, Resulted No growth 07/31/20 Urine Culture - Final, Complete Escherichia coli Home Meds Active Trimethoprim/Sulfamethoxazole 1 EA Tab 1 Ea PO BID WITH MEALS Reported Benzonatate 100 Mg Capsule 100 Mg PO QID PRN Hydrocodone-Acetamin 10-325 mg (Hydrocodone/Acetaminophen) 1 Each Tablet 1 Ea PO Q6H PRN Carvedilol 6.25 Mg Tablet 3.125 Mg PO BID TAKES OF A 3.125MG TAB Prednisone 10 Mg Tab 10 Mg PO DAILY Olanzapine 10 Mg Tablet 10 Mg PO HS Furosemide 40 Mg Tablet 40 Mg PO DAILY TAKES 20MG +40MG TO EQUAL 60MG DAILY Potassium Chloride 10 Meq Capsule.er 10 Meq PO DAILY Nitrofurantoin (Nitrofurantoin Macrocrystal) 100 Mg Capsule 100 Mg PO DAILY Promethazine HCl 12.5 Mg Tablet 12.5-25 Mg PO Q6H PRN Bumetanide 1 Mg Tablet 1 Mg PO DAILY Ativan (Lorazepam) 1 Mg Tablet 4 Mg PO Q4H PRN TAKES 4 (1MG) TABS Fluoxetine HCl 20 Mg Capsule 20 Mg PO DAILY Fentanyl Patch 100 MCG (Fentanyl) 1 Each Patch.td72 100 Mcg TD Q72H Proventil Hfa (Albuterol Sulfate) 6.7 Gm Hfa.aer.ad 2 Puff INH Q4H PRN Fentanyl Patch 50 MCG (Fentanyl) 1 Each Patch.td72 50 Mcg TD Q72H Morphine Conc. 20mg/ml (Morphine Sulfate) 100 Mg/5 Ml Solution 0.5-1 Ml PO Q15M PRN Entresto 24 mg-26 mg Tablet (Sacubitril/Valsartan) 1 Each Tablet 1 Tab PO BID Aspirin EC (Aspirin) 81 Mg Tablet.dr 81 Mg PO DAILY Furosemide 20 Mg Tablet 20 Mg PO DAILY TAKES 20MG +40MG TO EQUAL 60MG DAILY Iprat-Albut 0.5-3(2.5) mg/3 ml (Ipratropium/Albuterol Sulfate) 3 Ml Ampul.neb 3 Ml IH QID PRN Glimepiride 1 Mg Tablet 1 Mg PO DAILY PRN Assessment/Pt DC Instructions Follow up through hospice Discharge Diet: No Restrictions Activity as Tolerated: Yes Discharge Physical Examination Allergies: Coded Allergies: buspirone (Verified Allergy, Mild, 05/02/17) Made"legs Shaky" amitriptyline (Verified Allergy, Unknown, 05/02/17) " MAKES ME DO WEIRD THINGS LIKE WALK IN MY SLEEP AND HAVE HALLUCINATIONS." General Appearance: No Apparent Distress Respiratory: Decreased Breath Sounds, Wheezing Cardiovascular: Regular Rate, Rhythm Skin: Warm/Dry Neurologic/Psychiatric: Alert, Normal Mood/Affect Copy Copies To 1: TIMOTHY LARIOS MD, BETHANY N MD August 03, 2020 12:07
== END 2020-08-03 13:11 | disposition hospice, inpatient (51) ==
LOC: ER 08:43 → EDUNIT# 08:52 → 4TH 11:28
PROVIDERS: ADMIT Family Medicine; ATTEND Family Medicine
DX: J44.1 Chronic obstructive pulmonary disease with (acute) exacerbation (principal); E87.1 Hypo-osmolality and hyponatremia; F41.9 Anxiety disorder, unspecified; G89.29 Other chronic pain; E78.00 Pure hypercholesterolemia, unspecified; I25.10 Atherosclerotic heart disease of native coronary artery without angina pectoris; G43.909 Migraine, unspecified, not intractable, without status migrainosus; K21.9 Gastro-esophageal reflux disease without esophagitis; F32.9 Major depressive disorder, single episode, unspecified; G47.00 Insomnia, unspecified; E11.65 Type 2 diabetes mellitus with hyperglycemia; I11.9 Hypertensive heart disease without heart failure; I50.42 Chronic combined systolic (congestive) and diastolic (congestive) heart failure; E66.9 Obesity, unspecified; Z68.43 Body mass index [BMI] 50.0-59.9, adult; Z79.82 Long term (current) use of aspirin; Z79.899 Other long term (current) drug therapy; Z79.51 Long term (current) use of inhaled steroids; Z87.891 Personal history of nicotine dependence
CPT/HCPCS: 36415; 36600; 71045; 71250; 80048; 80053; 81000; 82805; 82947; 83605; 83880; 84484; 85025; 85027; 85610; 85730; 87040; 87088; 87186; 93005; 94640; 94760; 96361; 96374; G0378

== ENCOUNTER 2020-12-17 21:09 | Inpatient (IN) | payer MEDICAID ==
[~2020-12-17] VITALS: Ht 175 cm; Wt 149.8 kg
[~2020-12-17 21:09] MED LIST changes: +ARIP15TA20 PO; -ARIP15TA9 PO; +BENZ-36 PO; +BUME1TAB8 PO; +CARV6.252 PO; +FENT1PAT11 TD; +FENT1PAT9 TD; +FLUO20CA46 PO; +FURO40TA4 PO; +HYDR-3820 PO; +LORA-405 PO; +MORP100S7 PO; +NITR100C PO; -OLAN10TA19 PO; +OLAN10TA71 PO; -OLAN15TA19 PO; +OLAN15TA35 PO; -OLAN5TAB25 PO; +OLN5T PO; +POTA10CA43 PO; +PROM12.511 PO; +RT-ALBUINH INH; -SULF1TAB35 PO; +Trimethoprim/Sulfamethoxazole PO
[2020-12-17] MEDS ORDERED: DEXTROSE 50% 50 ML (IMS) SYR ONE (21:18)
[2020-12-17] MEDS ORDERED: RT-ALBUTEROL/IPRATROPIUM 3 ML (DUONEB) VIAL INH ONE (21:30)
[2020-12-17] MEDS ORDERED: NS IV 1000 ML 1,000 ML IV SCH ×2 (21:30→23:00)
[2020-12-17] MEDS ORDERED: DEXTROSE 50% 50 ML (IMS) SYR IV ONE (21:30)
[2020-12-17 21:41] LABS: BASOPHILS % (AUTO) 0 % (0-10); EOSINOPHILS # (AUTO) 0.3 10^3/uL (0.0-0.3); EOSINOPHILS % (AUTO) 3 % (0-10); HEMATOCRIT 25 % (35-52); HEMOGLOBIN 8.7 g/dL (11.5-16.0); LYMPHOCYTES # (AUTO) 0.9 10^3/uL (1.0-4.0); LYMPHOCYTES % (AUTO) 10 % (12-44); MEAN CORPUSCULAR HEMOGLOBIN 29 pg (25-34); MEAN CORPUSCULAR HGB CONC 35 g/dL (32-36); MEAN CORPUSCULAR VOLUME 84 fL (80-99); MEAN PLATELET VOLUME 9.7 fL (9.0-12.2); MONOCYTES # (AUTO) 0.7 10^3/uL (0.0-1.0); MONOCYTES % (AUTO) 7 % (0-12); NEUTROPHILS # (AUTO) 7.5 10^3/uL (1.8-7.8); NEUTROPHILS % (AUTO) 79 % (42-75); PLATELET COUNT 314 10^3/uL (130-400); WHITE BLOOD COUNT 9.5 10^3/uL (4.3-11.0)
[2020-12-17 21:42] LABS: ABG BASE EXCESS 11.5 MMOL/L (-2.5-2.5); ABG OXYGEN SATURATION 96 % (94-100); ABG PCO2 68 MMHG (35-45); ABG PH 7.36 (7.37-7.43); ABG PO2 76 MMHG (79-93); ABG TCO2 39.5 MMOL/L (21.0-31.0)
[2020-12-17 21:43] LABS: ALLENS TEST YES-POS; INSPIRED O2 3L; PATIENT TEMP 36.3; VENTILATOR NO
[2020-12-17 21:49] LABS: ALBUMIN 3.4 GM/DL (3.2-4.5); CHLORIDE 64 MMOL/L (98-107); POTASSIUM 3.4 MMOL/L (3.6-5.0)
[2020-12-17 21:50] LABS: CALCIUM 9.5 MG/DL (8.5-10.1)
[2020-12-17 21:51] LABS: GLUCOSE 131 MG/DL (70-105); INR 0.9 (0.8-1.4); PROTHROMBIN TIME PATIENT 12.8 SEC (12.2-14.7)
[2020-12-17 21:53] LABS: BILIRUBIN,TOTAL 0.4 MG/DL (0.1-1.0); CARBON DIOXIDE 32 MMOL/L (21-32)
[2020-12-17 21:55] LABS: ALKALINE PHOSPHATASE 65 U/L (40-136); GFR ESTIMATED 9
[2020-12-17 21:56] LABS: BUN/CREATININE RATIO 18; MAGNESIUM 1.8 MG/DL (1.6-2.4)
[2020-12-17 21:58] LABS: ALANINE AMINOTRANSFERASE 30 U/L (0-55)
[2020-12-17 21:59] LABS: SODIUM 114 MMOL/L (135-145)
[2020-12-17 22:20] LABS: CREATININE SERUM 5.06 MG/DL (0.60-1.30)
[2020-12-17] MEDS ORDERED: NALOXONE 2 MG/2 ML (NARCAN) SYR ONE (22:28)
[2020-12-17] MEDS ORDERED: NALOXONE 0.4 MG/ML 1 ML (NARCAN) VIAL IV ONE (22:30)
--- NOTE | 2020-12-17 22:50 | Diagnostic Imaging Report ---
INDICATION: Sepsis. COMPARISON: 07/31/2020 FINDINGS: The heart size is normal. There is mild venous congestion. There is a patchy left basal infiltrate. There is no pneumothorax. The mediastinum is unremarkable. IMPRESSION: Patchy left basilar infiltrate and mild central pulmonary venous congestion. Dictated by: Dictated on workstation # [id number]
[2020-12-17 23:29] LABS: BILIRUBIN,URINE NEGATIVE (NEGATIVE); CLARITY,URINE CLEAR; COLOR,URINE YELLOW; GLUCOSE, URINE (UA) NEGATIVE (NEGATIVE); KETONES,URINE NEGATIVE (NEGATIVE); LEUKOCYTE ESTERASE ,URINE TRACE (NEGATIVE); NITRITE,URINE NEGATIVE (NEGATIVE); PH,URINE 5.5 (5-9); PROTEIN,URINE NEGATIVE (NEGATIVE)
[2020-12-17 23:42] LABS: BACTERIA,URINE LARGE /HPF; SQUAMOUS EPITHELIAL CELL,UR 0-2 /HPF
[2020-12-18] MEDS ORDERED: LORazepam INJ 2 MG/ML (ATIVAN) VIAL ONE (00:22)
[2020-12-18] MEDS ORDERED: RT-ALBUTEROL SULF 2.5 MG/3 ML PRE-MIX VIAL INH STA (00:23)
[2020-12-18] MEDS ORDERED: MEROPENEM 500 MG in WATER (STERILE) FOR INJECTION 10 ML IV ONE (00:30)
[2020-12-18] MEDS ORDERED: RT-ALBUTEROL/IPRATROPIUM 3 ML (DUONEB) VIAL INH ONE (00:30)
[2020-12-18] MEDS ORDERED: ONDANSETRON 4 MG/2 ML (SDV) Z0FRAN IVP ONE (00:30)
[2020-12-18] MEDS ORDERED: LORazepam INJ 2 MG/ML (ATIVAN) VIAL IVP ONE ×2 (00:30→01:00)
[2020-12-18] MEDS ORDERED: methylPREDNISolone 125 MG (Solu-MEDROL) VIAL IVP ONE (00:30)
--- NOTE | 2020-12-18 00:45 | ED General ---
General Chief Complaint: Glucose Problems Stated Complaint: AMS Nursing Triage Note: LOW GLUCOSE, HYPOTENSION, ALTERED MENTAL STATUS Source of Information: Patient, EMS, Family, Old Records Exam Limitations: Physical Impairments History of Present Illness Date Seen by Provider: Dec 17, 2020 Time Seen by Provider: 21:11 Initial Comments This 55-year-old woman presents to the emergency room via EMS from [facility] with altered mental status. She has a blood sugar in the 50s and EMS started a bag of D10. She also has poor respiratory effort and is satting around 90% on 5 L by nasal cannula. She normally uses BiPAP at night. She has been on hospice intermittently over the past few years due to her severe COPD. Today she revoked her hospice status and requested to go to the emergency room. She has revoked her hospice services reportedly 3 separate times over the past few years. She also maintains a full CODE STATUS. She is arousable to voice and does answer some questions with one-word answers. Breathing is rather shallow. She is able to move all 4 extremities. She is afebrile. Family reports she has been vaccinated for COVID-19 and there have been no known exposures. Allergies and Home Medications Allergies Coded Allergies: buspirone (Verified Allergy, Mild, 05/02/17) Made"legs Shaky" amitriptyline (Verified Allergy, Unknown, 05/02/17) " MAKES ME DO WEIRD THINGS LIKE WALK IN MY SLEEP AND HAVE HALLUCINATIONS." Patient Home Medication List Home Medication List Reviewed: Yes Albuterol Sulfate (Proventil Hfa) 6.7 Gm Hfa.aer.ad, 2 PUFF INH Q4H PRN for SHORTNESS OF BREATH, (Reported) Entered as Reported by: DANIELLE RICHARD on 07/31/20 161 Aspirin (Aspirin EC) 81 Mg Tablet.dr, 81 MG PO DAILY, (Reported) Entered as Reported by: HARSH PARRISH on 11/19/17 1603 Benzonatate (Benzonatate) 100 Mg Capsule, 100 MG PO QID PRN for COUGH, (Reported) Entered as Reported by: DANIELLE RICHARD on 07/31/20 161 Bumetanide (Bumetanide) 1 Mg Tablet, 1 MG PO DAILY, (Reported) Entered as Reported by: DANIELLE RICHARD on 07/31/20 1616 Carvedilol (Carvedilol) 6.25 Mg Tablet, 3.125 MG PO BID, (Reported) Entered as Reported by: DANIELLE RICHARD on 07/31/20 161 Fentanyl (Fentanyl Patch 50 MCG) 1 Each Patch.td72, 50 MCG TD Q72H, (Reported) Entered as Reported by: DANIELLE RICHARD on 07/31/20 1616 Fentanyl (Fentanyl Patch 100 MCG) 1 Each Patch.td72, 100 MCG TD Q72H, (Reported) Entered as Reported by: DANIELLE RICHARD on 07/31/20 1616 Fluoxetine HCl (Fluoxetine HCl) 20 Mg Capsule, 20 MG PO DAILY, (Reported) Entered as Reported by: DANIELLE RICHARD on 07/31/20 161 Furosemide (Furosemide) 20 Mg Tablet, 20 MG PO DAILY, (Reported) Entered as Reported by: HARSH PARRISH on 11/19/17 1502 Furosemide (Furosemide) 40 Mg Tablet, 40 MG PO DAILY, (Reported) Entered as Reported by: DANIELLE RICHARD on 07/31/20 161 Glimepiride (Glimepiride) 1 Mg Tablet, 1 MG PO DAILY PRN for WHEN TAKING PREDNISONE, (Reported) Entered as Reported by: HARSH PARRISH on 04/29/17 1346 Hydrocodone/Acetaminophen (Hydrocodone-Acetamin 10-325 mg) 1 Each Tablet, 1 EA PO Q6H PRN for PAIN-MODERATE (5-7), (Reported) Entered as Reported by: DANIELLE RICHARD on 07/31/20 161 Ipratropium/Albuterol Sulfate (Iprat-Albut 0.5-3(2.5) mg/3 ml) 3 Ml Ampul.neb, 3 ML IH QID PRN for SHORTNESS OF BREATH, (Reported) Entered as Reported by: HARSH PARRISH on 08/26/17 1605 Lorazepam (Ativan) 1 Mg Tablet, 4 MG PO Q4H PRN for ANXIETY/SOB, (Reported) Entered as Reported by: DANIELLE RICHARD on 07/31/20 161 Morphine Sulfate (Morphine Conc. 20mg/ml) 100 Mg/5 Ml Solution, 0.5-1 ML PO Q15M PRN for AIR HUNGER, (Reported) Entered as Reported by: DANIELLE RICHARD on 07/31/20 1616 Nitrofurantoin Macrocrystal (Nitrofurantoin) 100 Mg Capsule, 100 MG PO DAILY, (Reported) Entered as Reported by: DANIELLE RICHARD on 07/31/20 161 Olanzapine (Olanzapine) 10 Mg Tablet, 10 MG PO HS, (Reported) Entered as Reported by: DANIELLE RICHARD on 07/31/20 161 Potassium Chloride (Potassium Chloride) 10 Meq Capsule.er, 10 MEQ PO DAILY, (Reported) Entered as Reported by: DANIELLE RICHARD on 07/31/20 161 Prednisone (Prednisone) 10 Mg Tab, 10 MG PO DAILY, (Reported) Entered as Reported by: DANIELLE RICHARD on 07/31/20 161 Promethazine HCl (Promethazine HCl) 12.5 Mg Tablet, 12.5-25 MG PO Q6H PRN for NAUSEA/VOMITING-2ND LINE, (Reported) Entered as Reported by: DANIELLE RICHARD on 07/31/20 161 Sacubitril/Valsartan (Entresto 24 mg-26 mg Tablet) 1 Each Tablet, 1 TAB PO BID, (Reported) Entered as Reported by: HARSH PARRISH on 11/19/17 1604 [Trimethoprim/Sulfamethoxazole] 1 EA TAB, 1 EA PO BID WITH MEALS Prescribed by: JAISON NORWOOD on 08/03/20 1119 Review of Systems Review of Systems Constitutional: see HPI EENTM: no symptoms reported Respiratory: see HPI Cardiovascular: no symptoms reported Gastrointestinal: no symptoms reported Genitourinary: no symptoms reported : No Musculoskeletal: no symptoms reported Skin: no symptoms reported Psychiatric/Neurological: See HPI Hematologic/Lymphatic: No Symptoms Reported Immunological/Allergic: no symptoms reported Past Igvwodk-Mpawhu-Edeskt Hx Immunizations Up To Date Tetanus Booster (TDap): Unknown First/Initial COVID19 Vaccinat: 08/03 Second COVID19 Vaccination Dustin: 08/03 Seasonal Allergies Seasonal Allergies: No Past Medical History Surgery/Hospitalization HX: IDDM,CHF,COPD,ANXIETY,HIGH LIPIDS Surgeries: Yes (EGD/COLONOSCOPY; CARDIAC CATH 09/18/17--NO INTERVENTION) Cardiac Respiratory: Yes (O2 AT 2-3L/NC) Pneumonia, Chronic Bronchitis, Sleep Apnea, COPD Currently Using CPAP: No Currently Using BIPAP: Yes Cardiac: Yes Cardiomyopathy, Coronary Artery Disease, High Cholesterol, Hypertension Neurological: Yes Headaches /Migraines 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 Disorders: No 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 Sexually Transmitted Disease: No HIV/AIDS: No Genitourinary: No Gastrointestinal: Yes (GASTRITIS AND ESOPHAGEAL CANDIDIASIS 04/2017) Gastroesophageal Reflux, Gastrointestinal Bleed, Chronic Constipation, Chronic Diarrhea, Esophagitis, Ulcer Musculoskeletal: Yes (chronic shoulder and neck pain) Endocrine: Yes (DM- only while on steriods per pt) Diabetes, Non-Insulin dep HEENT: No Cancer: No Psychosocial: Yes (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; POLYSUBSTANCE ABUSE) Sleep Difficulties, Anxiety, Suicide Attempts, Bipolar, Depression Integumentary: No Blood Disorders: Yes (ANEMIA) Adverse Reaction/Blood Tranf: No Family Medical History Cancer 03 MOTHER, Onset:65 (LUNG ) 09 BROTHER (LUNG ) Congestive heart failure 03 FATHER Heart Disease, Cancer Physical Exam Vital Signs Vital Signs - First Documented Capillary Refill : Less Than 3 Seconds Height, Weight, BMI Height: 5'9.00" Weight: 197lbs. 0.9oz. [id number]; 47.00 BMI Method:Stated General Appearance: WD/WN, Mild Distress HEENT: PERRL/EOMI, Normal ENT Inspection Neck: Normal Inspection; No JVD Respiratory: No Accessory Muscle Use, Decreased Breath Sounds, Wheezing Cardiovascular: Regular Rate, Rhythm, No Edema, No Murmur Gastrointestinal: Normal Bowel Sounds, Non Tender, Soft Extremity: Normal Inspection, No Pedal Edema Neurologic/Psychiatric: Other (Generalized weakness, arousable to voice. Answers questions with one-word answers) Skin: Normal Color, Warm/Dry Focused Exam Lactate Level 12/17/20 21:22: Lactic Acid Level 0.62 Lactic Acid Level Laboratory Tests Test 12/17/20 21:22 Lactic Acid Level 0.62 MMOL/L (0.50-2.00) Progress/Results/Core Measures Suspected Sepsis SIRS Temperature: Pulse: 61 Respiratory Rate: 18 Laboratory Tests 12/17/20 21:22: White Blood Count 9.5 Blood Pressure 64 /44 Mean: 51 12/17/20 21:22: Lactic Acid Level 0.62 Laboratory Tests 12/17/20 21:22: Creatinine 5.06H, INR Comment 0.9, Platelet Count 314, Total Bilirubin 0.4 10/12/21 00:35: Creatinine 4.65#H Results/Orders Lab Results Laboratory Tests Test 12/17/20 21:17 12/17/20 21:22 12/17/20 21:35 12/17/20 22:03 Range/Units Glucometer 57 *L 220 H 70-110 MG/DL White Blood Count 9.5 4.3-11.0 10^3/uL Red Blood Count 2.98 L 3.80-5.11 10^6/uL Hemoglobin 8.7 L 11.5-16.0 g/dL Hematocrit 25 L 35-52 % Mean Corpuscular Volume 84 80-99 fL Mean Corpuscular Hemoglobin 29 25-34 pg Mean Corpuscular Hemoglobin Concent 35 32-36 g/dL Red Cell Distribution Width 14.2 10.0-14.5 % Platelet Count 314 130-400 10^3/uL Mean Platelet Volume 9.7 9.0-12.2 fL Immature Granulocyte % (Auto) 1 % Neutrophils (%) (Auto) 79 H 42-75 % Lymphocytes (%) (Auto) 10 L 12-44 % Monocytes (%) (Auto) 7 0-12 % Eosinophils (%) (Auto) 3 0-10 % Basophils (%) (Auto) 0 0-10 % Neutrophils # (Auto) 7.5 1.8-7.8 10^3/uL Lymphocytes # (Auto) 0.9 L 1.0-4.0 10^3/uL Monocytes # (Auto) 0.7 0.0-1.0 10^3/uL Eosinophils # (Auto) 0.3 0.0-0.3 10^3/uL Basophils # (Auto) 0.0 0.0-0.1 10^3/uL Immature Granulocyte # (Auto) 0.1 0.0-0.1 10^3/uL Prothrombin Time 12.8 12.2-14.7 SEC INR Comment 0.9 0.8-1.4 Activated Partial Thromboplast Time 39 H 24-35 SEC Sodium Level 114 *L 135-145 MMOL/L Potassium Level 3.4 L 3.6-5.0 MMOL/L Chloride Level 64 L 98-107 MMOL/L Carbon Dioxide Level 32 21-32 MMOL/L Anion Gap 18 H 5-14 MMOL/L Blood Urea Nitrogen 90 H 7-18 MG/DL Creatinine 5.06 H 0.60-1.30 MG/DL Estimat Glomerular Filtration Rate 9 BUN/Creatinine Ratio 18 Glucose Level 131 H 70-105 MG/DL Lactic Acid Level 0.62 0.50-2.00 MMOL/L Calcium Level 9.5 8.5-10.1 MG/DL Corrected Calcium 10.0 8.5-10.1 MG/DL Magnesium Level 1.8 1.6-2.4 MG/DL Total Bilirubin 0.4 0.1-1.0 MG/DL Aspartate Amino Transf (AST/SGOT) 80 H 5-34 U/L Alanine Aminotransferase (ALT/SGPT) 30 0-55 U/L Alkaline Phosphatase 65 40-136 U/L Total Creatine Kinase 2279 H 29-168 U/L Myoglobin 4165.6 H 10.0-92.0 NG/ML Troponin I < 0.028 <0.028 NG/ML C-Reactive Protein High Sensitivity 6.20 H 0.00-0.50 MG/DL B-Type Natriuretic Peptide 98.0 <100.0 PG/ML Total Protein 6.0 L 6.4-8.2 GM/DL Albumin 3.4 3.2-4.5 GM/DL Procalcitonin 0.15 H <0.10 NG/ML Blood Gas Puncture Site rrad Blood Gas Patient Temperature 36.3 Arterial Blood pH 7.36 L 7.37-7.43 Arterial Blood Partial Pressure CO2 68 H 35-45 MMHG Arterial Blood Partial Pressure O2 76 L 79-93 MMHG Arterial Blood HCO3 37 H 23-27 MMOL/L Arterial Blood Total CO2 39.5 H 21.0-31.0 MMOL/L Arterial Blood Oxygen Saturation 96 94-100 % Arterial Blood Base Excess 11.5 H -2.5-2.5 MMOL/L Torsten Test YES-POS Blood Gas Ventilator Setting NO Blood Gas Inspired Oxygen 3L Test 12/17/20 23:15 12/17/20 23:23 12/18/20 00:35 Range/Units Influenza Type A (RT-PCR) Not Detected Not Detecte Influenza Type B (RT-PCR) Not Detected Not Detecte SARS-CoV-2 RNA (RT-PCR) Not Detected Not Detecte Urine Color YELLOW Urine Clarity CLEAR Urine pH 5.5 5-9 Urine Specific [place] 1.010 L 1.016-1.022 Urine Protein NEGATIVE NEGATIVE Urine Glucose (UA) NEGATIVE NEGATIVE Urine Ketones NEGATIVE NEGATIVE Urine Nitrite NEGATIVE NEGATIVE Urine Bilirubin NEGATIVE NEGATIVE Urine Urobilinogen 0.2 < = 1.0 MG/DL Urine Leukocyte Esterase TRACE H NEGATIVE Urine RBC (Auto) 2+ H NEGATIVE Urine RBC 2-5 H /HPF Urine WBC 5-10 H /HPF Urine Squamous Epithelial Cells 0-2 /HPF Urine Crystals NONE /LPF Urine Bacteria LARGE H /HPF Urine Casts NONE /LPF Urine Mucus NEGATIVE /LPF Urine Culture Indicated CULTURE PENDING Sodium Level 115 *L 135-145 MMOL/L Potassium Level 3.5 L 3.6-5.0 MMOL/L Chloride Level 68 L 98-107 MMOL/L Carbon Dioxide Level 30 21-32 MMOL/L Anion Gap 17 H 5-14 MMOL/L Blood Urea Nitrogen 85 H 7-18 MG/DL Creatinine 4.65 #H 0.60-1.30 MG/DL Estimat Glomerular Filtration Rate 10 BUN/Creatinine Ratio 18 Glucose Level 77 70-105 MG/DL Calcium Level 9.2 8.5-10.1 MG/DL Triglycerides Level 40 <150 MG/DL Cholesterol Level 193 < 200 MG/DL LDL Cholesterol Direct 120 1-129 MG/DL VLDL Cholesterol 8 5-40 MG/DL HDL Cholesterol 57 40-60 MG/DL My Orders Orders - TYLOR DURAN MD D50w (Emergency) Syringe (Dextrose 50% 5 (12/17/20 21:18) Cbc With Automated Diff (12/17/20 21:23) Comprehensive Metabolic Panel (12/17/20 21:23) Blood Culture (12/17/20 21:23) Sputum Culture (12/17/20:23) Urinalysis (12/17/20:23) Urine Culture (12/17/20:23) Protime With Inr (12/17/20:23) Partial Thromboplastin Time (12/17/20:23) Chest 1 View, Ap/Pa Only (12/17/20:23) Ed Iv/Invasive Line Start (12/17/20 21:23) Ed Iv/Invasive Line Start (12/17/20 21:23) Vital Signs Adult Sepsis Patie Q15M (12/17/20 21:23) O2 (12/17/20 21:23) Remove Rings In Anticipation O (12/17/20 21:23) Lactic Acid Analyzer (12/17/20:) Ns Iv 1000 Ml (Sodium Chloride 0.9%) (12/17/20:) Magnesium (12/17/20:) Ekg Tracing (12/17/20) Myoglobin Serum (12/17/20) Monitor-Rhythm Ecg Trace Only (12/17/20) Lipid Panel (12/18/20 06:00) BNP (12/17/20:) Troponin I (12/17/20:) Albuterol/Ipra Inhalation Soln (Duoneb I (12/17/20:) Svn Small Volume Nebulizer (12/17/20:) D50w (Emergency) Syringe (Dextrose 50% 5 (12/17/20:) Accucheck Stat ONCE (12/17/20:) Liang Cath (12/17/20) Arterial Blood Gas (12/17/20 21:37) Naloxone Injection (Narcan Injection) (12/17/20 22:30) Naloxone Injection (Narcan Injection) (12/17/20 22:28) Ns Iv 1000 Ml (Sodium Chloride 0.9%) (12/17/20 23:00) Creatine Kinase (12/17/20 22:52) Covid 19 Inhouse Test (12/17/20 23:12) Procalcitonin (Pct) (12/17/20 23:13) Hs C Reactive Protein (12/17/20 23:13) Influenza A And B By Pcr (12/17/20 23:13) Lorazepam Injection (Ativan Injection) (12/18/20 00:30) Methylprednisolone Sod Succ (Solu-Medrol (12/18/20 00:30) Albuterol Pre-Mix Nebs (Rt) (Proventil (12/18/20 00:23) Albuterol/Ipra Inhalation Soln (Duoneb I (12/18/20 00:30) Svn Small Volume Nebulizer (12/18/20 00:23) Svn Small Volume Nebulizer (12/18/20 00:23) Ondansetron Injection (Zofran Injectio (12/18/20 00:30) Lorazepam Injection (Ativan Injection) (12/18/20 00:22) Meropenem (Merrem 500 Mg) (12/18/20 00:30) Basic Metabolic Panel (12/18/20 00:40) Medications Given in ED Current Medications Medications Dose Ordered Sig/Vladimir Route Start Time Stop Time Status Last Admin Dose Admin Albuterol/ Ipratropium 3 ml ONCE ONCE INH 12/17/20 21:30 12/17/20 21:31 DC 12/17/20 21:47 3 ML Albuterol/ Ipratropium 3 ml ONCE ONCE INH 12/18/20 00:30 12/18/20 00:31 DC 12/18/20 01:43 3 ML Dextrose 50 ml ONCE ONCE IV 12/17/20 21:30 12/17/20 21:31 DC 12/17/20 21:28 50 ML Lorazepam 0.25 mg ONCE ONCE IVP 12/18/20 00:30 12/18/20 00:31 DC 12/18/20 00:27 0.25 MG Meropenem 500 mg/ Sterile Water 10 ml @ 200 mls/hr ONCE ONCE IV 12/18/20 00:30 12/18/20 00:32 DC 12/18/20 00:36 200 MLS/HR Methylprednisolone Sodium Succinate 62.5 mg ONCE ONCE IVP 12/18/20 00:30 12/18/20 00:31 DC 12/18/20 00:29 62.5 MG Naloxone HCl 2 mg STK-MED ONCE .ROUTE 12/17/20 22:28 12/17/20 22:32 DC 12/17/20 22:33 4 MG Ondansetron HCl 8 mg ONCE ONCE IVP 12/18/20 00:30 12/18/20 00:31 DC 12/18/20 00:29 8 MG Vital Signs/I&O 12/17/20 12/17/20 12/17/20 21:11 21:11 21:43 Temp 36.3 Pulse 67 61 Resp 20 18 B/P (MAP) 64/44 (51) Pulse Ox 97 99 O2 Delivery Nasal Cannula Nasal Cannula O2 Flow Rate 3.00 3.00 40.00 12/17/20 23:59 Intake Total 2300 ml Balance 2300 ml Capillary Refill : Less Than 3 Seconds Blood Pressure Mean: 51 Point of Care Testing Finger Stick Blood Glucose: 220 Blood Glucose Action Taken: ERP NOTIFIED Progress Note : Time: 01:00 Progress Note Patient initially arrived with significant altered mental status. She would respond with single words when questions were asked. Respiratory effort was poor. She was started on BiPAP as she usually uses BiPAP at night. Tidal volumes were initially low even with a higher pressure setting of 18/12. Sitting her up did improve her tidal volumes. Blood pressure did not respond well to BiPAP and she became hypotensive. We adjusted BiPAP settings which improved blood pressure somewhat. IV fluids were initiated with normal saline. She was hypoglycemic on arrival with a blood sugar of 57. She was given an amp of D50. The D10 that was started by EMS was also completed. Patient had a brief episode in which no rhythm was noted on the heel scourer. However, pulse was still visible on the pulse oximeter. A pulse was checked at the time and could not be palpated. This was during the time of her lower blood pressures as well. There was concern for cardiac arrest. 3 chest compressions were performed by myself and patient looked up at me and yelled "hey". I believe this was actually an episode of hypotension and a monitor air rather than cardiac arrest. She had no further episodes. I had a long conversation with patient's family multiple times. I spent at least 30 minutes in conv ersation with her children. They confirmed that patient did in her right mind revoke hospice today. She also requested full CODE STATUS. They also expressed concern about her prior substance abuse and potential for her to overuse as needed medications or even obtain substances for abuse in the long term. For this reason Narcan was administered. Patient responded to Narcan and became agitated. Hypertension, low tidal volumes, and lethargy all resolved. She remained agitated to the extent that she required 2 doses of Ativan 0.25 mg to resume BiPAP and calm her for admission. While she was at the peak of her agitation she was given a break off of BiPAP. During this time she was noted to be quite wheezy despite receiving a DuoNeb treatment earlier. An hour-long nebulizer treatment was then ordered. She was also given Solu-Medrol 62.5 mg by IV route. Patient's renal failure is acute. Her baseline creatinine is 1.5. Initially we attempted transfer due to her severe renal failure, but upon placing a Liang catheter she had output of approximately 1500 mL of urine throughout her ER stay and her respiratory and mental status improved significantly with Narcan and BiPAP. Because of this significant improvement, we reconsidered the transfer, especially since no local facilities were available. Transfer would be to the [facility] as the [facility] are on diversion. Patient's altered mental status is likely multifactorial with contributing factors including hypercarbia, hyponatremia, UTI, overdose effect exacerbated by acute kidney injury, and hypoglycemia. Patient did not appear septic as her CRP, procalcitonin, white count, temperature, and lactic acid were all unimpressive. She did appear to have urinary tract infection which was treated with meropenem based on review of prior cultures. There was a question of infiltrate on the chest x-ray in the bilateral bases, but this was likely atelectasis due to poor respiratory effort rather than true pneumonia. Labs did not suggest any degree of heart failure. I did give report to Dr. Benito with eICU. She requested that IV fluids be stopped. She had received approximately 1700 mL and IV fluids at that point in time. She requested a BMP be obtained to check on the sodium status before fluids will be resumed. ECG Initial ECG Impression Date: Dec 17, 2020 Initial ECG Impression Time: 21:30 Initial ECG Rate: 59 Initial ECG Rhythm: Normal Sinus Comment Sinus rhythm with no ST elevation or depression. No abnormal intervals or axis deviation. Diagnostic Imaging Diagonstic Imaging: Xray Plain Films/CT/US/NM/MRI: chest Comments Chest x-ray viewed by me and report reviewed. See report below: NAME: [facility] REC#: [id number] PT STATUS: REG ER : 1965 PHYSICIAN: TYLOR DURAN MD ADMIT DATE: 12/17/20/ER Signed Date of Exam:12/17/20 CHEST 1 VIEW, AP/PA ONLY INDICATION: Sepsis. COMPARISON: 07/31/2020 FINDINGS: The heart size is normal. There is mild venous congestion. There is a patchy left basal infiltrate. There is no pneumothorax. The mediastinum is unremarkable. IMPRESSION: Patchy left basilar infiltrate and mild central pulmonary venous congestion. Dictated by: Dictated on workstation # [id number] Dict: 12/17/20 [id number] Trans: 12/17/20 2255 [facility] [id number] Interpreted by: ALVARO BLACKMAN MD Electronically signed by: ALVARO BLACKMAN MD 12/17/205 Departure Communication (Admissions) Time/Spoke to Admitting Phy: 23:56 Dr. Norwood Time/Spoke to Consulting Phy: 00:30 eICU Impression Primary Impression: Acute kidney injury Additional Impressions: Altered mental status Qualified Codes: R41.82 - Altered mental status, unspecified Hyponatremia Urinary tract infection Qualified Codes: N39.0 - Urinary tract infection, site not specified Hypoglycemia COPD exacerbation Agitation Elevated creatine kinase Disposition: ADMITTED INPATIENT Condition: Improved Admissions Decision to Admit Reason: Admit from ER (General) Decision to Admit/Date: Dec 18, 2020 Time/Decision to Admit Time: 21:20 Departure-Patient Inst. Referrals: [facility] (PCP) Primary Care Physician ALIZA CARTER (Family) Primary Care Physician TYLOR DURAN MD Dec 18, 2020 00:45
[2020-12-18 00:52] LABS: POTASSIUM 3.5 MMOL/L (3.6-5.0)
[2020-12-18 00:53] LABS: CALCIUM 9.2 MG/DL (8.5-10.1)
[2020-12-18 00:55] LABS: TRIGLYCERIDES 40 MG/DL (<150); VLDL CHOLESTEROL 8 MG/DL (5-40)
[2020-12-18 00:58] LABS: CREATININE SERUM 4.65 MG/DL (0.60-1.30)
[2020-12-18 01:00] LABS: CHOLESTEROL 193 MG/DL (< 200)
[2020-12-18 01:01] LABS: HDL CHOLESTEROL 57 MG/DL (40-60)
[2020-12-18] MEDS: NS IV 1000 ML 1,000 ML IV SCH ×5 (01:51→18:19)
--- NOTE | 2020-12-18 01:58 | Tele-ICU Progress Note ---
Progress Note 55F with end stage COPD who has been on and off hospice for the past few years transferred from [place] for AMS. In ER was reported that she has a history of drug abuse/dependence, and despite NH status would have used if given the opportunity (i.e. saving meds, biting fentanyl patch, etc). Narcan given x1 with improved blood pressure, tidal volume (on bipap). sepsis - UA equivocal, PCT negative. Empiric abx initiated, cultures pending. AMS - secondary to opiates vs hyponatremia, more likely combo of both. Did have significant improvement after narcan. Continue clinical monitoring. MAYRA - baseline creatinine 1.5, now 5. Improved to 4.6 with fluids, about 1.5L UOP in ER. Hopeful for improvement with ongoing hydration, however hyponatremia will be the primary cement mixer driver for determining fluids. CK and myoglobin both high for unclear reasons. No reported down time or seizure, although both are possible. May have component of rhabdo as well, receiveng IVF and following renal function. hyponatremia - Na 114 at 21:22. Goal Na 120 /12 at 2100. Received 2L NS in ER. Requested fluids paused and BMP repeated. Now 115 at 0035. Will use NS to correct for now, however calculated rate to acheive goal would be 460 cc/hr. May need hypertonic to acheive goal. For now, will place on NS at 200 cc/hr with q4h Na monitoring. If fails to increment, will order CVL in AM for 3% administration. hypoglycemia - glucose 57 on arrival, incremented to 220 after D50. On most recent BMP back down to 77. Will monitor with q2h accuchecks, hypoglycemia protocol. COPD - unclear whether this represents a primary exacerbation. ABG without significant acute hypercapnia, cxr clear, exam clear. BiPap in place, uses qhs at baseline. Received solumedrol and nebs in ER. Will continue nebs. Reasses in AM to determine steroid needs. Focused Exam Lactate Level 12/17/20 21:22: Lactic Acid Level 0.62 Height, Weight, BMI Height: 5'9.00" Weight: 197lbs. 0.9oz. 89.191775kj; 47.00 BMI Method:Stated JAILENE LEON MD Dec 18, 2020 01:58
[2020-12-18 04:59] LABS: BASOPHILS % (AUTO) 0 % (0-10); EOSINOPHILS # (AUTO) 0.1 10^3/uL (0.0-0.3); EOSINOPHILS % (AUTO) 0 % (0-10); HEMATOCRIT 28 % (35-52); HEMOGLOBIN 9.7 g/dL (11.5-16.0); LYMPHOCYTES # (AUTO) 0.6 10^3/uL (1.0-4.0); LYMPHOCYTES % (AUTO) 3 % (12-44); MEAN CORPUSCULAR HEMOGLOBIN 29 pg (25-34); MEAN CORPUSCULAR HGB CONC 35 g/dL (32-36); MEAN CORPUSCULAR VOLUME 82 fL (80-99); MEAN PLATELET VOLUME 9.4 fL (9.0-12.2); MONOCYTES # (AUTO) 0.6 10^3/uL (0.0-1.0); MONOCYTES % (AUTO) 3 % (0-12); NEUTROPHILS # (AUTO) 18.4 10^3/uL (1.8-7.8); NEUTROPHILS % (AUTO) 92 % (42-75); PLATELET COUNT 301 10^3/uL (130-400)
[2020-12-18 05:11] LABS: CALCIUM 9.2 MG/DL (8.5-10.1)
[2020-12-18] MEDS: KCL 20 MEQ TAB (K-DUR) PO SCH (05:13)
[2020-12-18] MEDS: inSUlin ASPART (NovoLOG) 1 UNIT/0.01 ML (CHARGE PER UNIT) SC SCH ×4 (05:13→21:03)
[2020-12-18] MEDS: POTASSIUM CL 10MEQ/50ML IVPB 50 ML IV SCH (05:13)
[2020-12-18 05:15] LABS: PHOSPHORUS 6.6 MG/DL (2.3-4.7)
[2020-12-18 05:16] LABS: CREATININE SERUM 4.54 MG/DL (0.60-1.30)
[2020-12-18 05:18] LABS: MAGNESIUM 1.7 MG/DL (1.6-2.4)
[2020-12-18] MEDS: MAGNESIUM 1 GM/100 ML IVPB 100 ML IV SCH ×3 (05:19→06:33)
[2020-12-18 05:36] LABS: BAND NEUTROPHILS 3 %; EOSINOPHILS % (MANUAL) 2 %; LYMPHOCYTES % (MANUAL) 4 %; METAMYELOCYTES % 2 %; MONOCYTES % (MANUAL) 2 %; NEUTROPHILS % (MANUAL) 87 %
[2020-12-18 05:37] LABS: MICROCYTOSIS SLIGHT
[2020-12-18] MEDS ORDERED: DEXTROSE 50% 50 ML (IMS) SYR ONE (05:40)
[2020-12-18] MEDS ORDERED: DEXTROSE 50% 50 ML (IMS) SYR IV ONE (05:45)
--- NOTE | 2020-12-18 08:59 | History & Physical ---
HPI History of Present Illness: Patient awakens to name, but mumbles in answer to questions and is difficult to understand. She does say she feels "like crap and is tired" and asks for something for pain (states she has pain in chest, back and head) and a pepsi. When asked about her eating and drinking prior to coming in, she said she had peña and eggs. She says her blood sugar was being monitored due to being on steroids. She describes her chest pain as sharp and going on for a couple of days. She states she has had pretty bad diarrhea for more than a week or so and says she was given something for diarrhea in the ER, denies BM since getting to the hospital. Source: patient Exam Limitations: clinical condition Date seen by provider: Dec 18, 2020 Time Seen by Provider: 08:54 Attending Physician Jaison Martinez MD [place] [place] Consult Date of Admission Dec 18, 2020 at 00:39 Home Medications Home Medications Reviewed patient Home Medication Reconciliation performed by pharmacy medication reconciliations fiberglass technician and/or nursing. Patients Allergies have been reviewed. Allergies Coded Allergies: buspirone (Verified Allergy, Mild, 05/02/17) Made"legs Shaky" amitriptyline (Verified Allergy, Unknown, 05/02/17) " MAKES ME DO WEIRD THINGS LIKE WALK IN MY SLEEP AND HAVE HALLUCINATIONS." AGR-Ghdong-Acujdg Hx Patient Social History Drug of Choice: + IV METH, ALSO SMOKES IT; MULTIPLE BENZODIAZEPINE OD'S Smoking Status: Unknown if Ever Smoked 2nd Hand Smoke Exposure: Yes Recent Hopitalizations: Yes Alcohol Use?: Unable to obtain Have you traveled recently?: No Immunizations Up To Date Tetanus Booster (TDap): Unknown Date of Pneumonia Vaccine: Apr 30, 2018 Date of Influenza Vaccine: Apr 30, 2018 Past Medical History Past Medical History 1. HTN 2. COPD 3. Asthma 4.Chronic Migraines 5. Anxiety 6. Depression 7. Endometrial hypertrophy 8. DMII 9. HLP- with elevated triglycerides 10. Chronic Insomnia 11. Gastritis 12. Methamphetamine abuse 13. Several admissions for overdose of benzodiazapine 14. Acute systolic heart failure 2014 15. Bipolar Disorder Past Surgical History 1. EGD- Gastritis [place] 2. Colonoscopy- [place] Family Medical History Significant Family History: Heart Disease, Cancer Family History: Cancer 03 MOTHER, Onset:66 (LUNG ) 09 BROTHER (LUNG ) Congestive heart failure 03 FATHER Review of Systems ([facility]) Constitutional: malaise EENTM: No hearing loss Respiratory: short of breath Cardiovascular: see HPI Gastrointestinal: diarrhea Genitourinary: No hematuria Musculoskeletal: back pain Reviewed Test Results Reviewed Test Results Lab Laboratory Tests Test 12/17/20 21:17 12/17/20 21:22 12/17/20 21:35 12/17/20 22:03 Range/Units Glucometer 57 *L 220 H 70-110 MG/DL White Blood Count 9.5 4.3-11.0 10^3/uL Red Blood Count 2.98 L 3.80-5.11 10^6/uL Hemoglobin 8.7 L 11.5-16.0 g/dL Hematocrit 25 L 35-52 % Mean Corpuscular Volume 84 80-99 fL Mean Corpuscular Hemoglobin 29 25-34 pg Mean Corpuscular Hemoglobin Concent 35 32-36 g/dL Red Cell Distribution Width 14.2 10.0-14.5 % Platelet Count 314 130-400 10^3/uL Mean Platelet Volume 9.7 9.0-12.2 fL Immature Granulocyte % (Auto) 1 % Neutrophils (%) (Auto) 79 H 42-75 % Lymphocytes (%) (Auto) 10 L 12-44 % Monocytes (%) (Auto) 7 0-12 % Eosinophils (%) (Auto) 3 0-10 % Basophils (%) (Auto) 0 0-10 % Neutrophils # (Auto) 7.5 1.8-7.8 10^3/uL Lymphocytes # (Auto) 0.9 L 1.0-4.0 10^3/uL Monocytes # (Auto) 0.7 0.0-1.0 10^3/uL Eosinophils # (Auto) 0.3 0.0-0.3 10^3/uL Basophils # (Auto) 0.0 0.0-0.1 10^3/uL Immature Granulocyte # (Auto) 0.1 0.0-0.1 10^3/uL Prothrombin Time 12.8 12.2-14.7 SEC INR Comment 0.9 0.8-1.4 Activated Partial Thromboplast Time 39 H 24-35 SEC Sodium Level 114 *L 135-145 MMOL/L Potassium Level 3.4 L 3.6-5.0 MMOL/L Chloride Level 64 L 98-107 MMOL/L Carbon Dioxide Level 32 21-32 MMOL/L Anion Gap 18 H 5-14 MMOL/L Blood Urea Nitrogen 90 H 7-18 MG/DL Creatinine 5.06 H 0.60-1.30 MG/DL Estimat Glomerular Filtration Rate 9 BUN/Creatinine Ratio 18 Glucose Level 131 H 70-105 MG/DL Lactic Acid Level 0.62 0.50-2.00 MMOL/L Calcium Level 9.5 8.5-10.1 MG/DL Corrected Calcium 10.0 8.5-10.1 MG/DL Magnesium Level 1.8 1.6-2.4 MG/DL Total Bilirubin 0.4 0.1-1.0 MG/DL Aspartate Amino Transf (AST/SGOT) 80 H 5-34 U/L Alanine Aminotransferase (ALT/SGPT) 30 0-55 U/L Alkaline Phosphatase 65 40-136 U/L Total Creatine Kinase 2279 H 29-168 U/L Myoglobin 4165.6 H 10.0-92.0 NG/ML Troponin I < 0.028 <0.028 NG/ML C-Reactive Protein High Sensitivity 6.20 H 0.00-0.50 MG/DL B-Type Natriuretic Peptide 98.0 <100.0 PG/ML Total Protein 6.0 L 6.4-8.2 GM/DL Albumin 3.4 3.2-4.5 GM/DL Procalcitonin 0.15 H <0.10 NG/ML Blood Gas Puncture Site rrad Blood Gas Patient Temperature 36.3 Arterial Blood pH 7.36 L 7.37-7.43 Arterial Blood Partial Pressure CO2 68 H 35-45 MMHG Arterial Blood Partial Pressure O2 76 L 79-93 MMHG Arterial Blood HCO3 37 H 23-27 MMOL/L Arterial Blood Total CO2 39.5 H 21.0-31.0 MMOL/L Arterial Blood Oxygen Saturation 96 94-100 % Arterial Blood Base Excess 11.5 H -2.5-2.5 MMOL/L Torsten Test YES-POS Blood Gas Ventilator Setting NO Blood Gas Inspired Oxygen 3L Test 12/17/20 23:15 12/17/20 23:23 12/18/20 00:35 12/18/20 02:02 Range/Units Influenza Type A (RT-PCR) Not Detected Not Detecte Influenza Type B (RT-PCR) Not Detected Not Detecte SARS-CoV-2 RNA (RT-PCR) Not Detected Not Detecte Urine Color YELLOW Urine Clarity CLEAR Urine pH 5.5 5-9 Urine Specific [place] 1.010 L 1.016-1.022 Urine Protein NEGATIVE NEGATIVE Urine Glucose (UA) NEGATIVE NEGATIVE Urine Ketones NEGATIVE NEGATIVE Urine Nitrite NEGATIVE NEGATIVE Urine Bilirubin NEGATIVE NEGATIVE Urine Urobilinogen 0.2 < = 1.0 MG/DL Urine Leukocyte Esterase TRACE H NEGATIVE Urine RBC (Auto) 2+ H NEGATIVE Urine RBC 2-5 H /HPF Urine WBC 5-10 H /HPF Urine Squamous Epithelial Cells 0-2 /HPF Urine Crystals NONE /LPF Urine Bacteria LARGE H /HPF Urine Casts NONE /LPF Urine Mucus NEGATIVE /LPF Urine Culture Indicated CULTURE PENDING Sodium Level 115 *L 135-145 MMOL/L Potassium Level 3.5 L 3.6-5.0 MMOL/L Chloride Level 68 L 98-107 MMOL/L Carbon Dioxide Level 30 21-32 MMOL/L Anion Gap 17 H 5-14 MMOL/L Blood Urea Nitrogen 85 H 7-18 MG/DL Creatinine 4.65 #H 0.60-1.30 MG/DL Estimat Glomerular Filtration Rate 10 BUN/Creatinine Ratio 18 Glucose Level 77 70-105 MG/DL Calcium Level 9.2 8.5-10.1 MG/DL Triglycerides Level 40 <150 MG/DL Cholesterol Level 193 < 200 MG/DL LDL Cholesterol Direct 120 1-129 MG/DL VLDL Cholesterol 8 5-40 MG/DL HDL Cholesterol 57 40-60 MG/DL Glucometer 71 70-110 MG/DL Test 12/18/20 04:17 12/18/20 04:45 12/18/20 06:32 12/18/20 07:29 Range/Units Glucometer 73 169 H 178 H 70-110 MG/DL White Blood Count 20.0 H 4.3-11.0 10^3/uL Red Blood Count 3.38 L 3.80-5.11 10^6/uL Hemoglobin 9.7 L 11.5-16.0 g/dL Hematocrit 28 L 35-52 % Mean Corpuscular Volume 82 80-99 fL Mean Corpuscular Hemoglobin 29 25-34 pg Mean Corpuscular Hemoglobin Concent 35 32-36 g/dL Red Cell Distribution Width 14.1 10.0-14.5 % Platelet Count 301 130-400 10^3/uL Mean Platelet Volume 9.4 9.0-12.2 fL Immature Granulocyte % (Auto) 1 % Neutrophils (%) (Auto) 92 H 42-75 % Lymphocytes (%) (Auto) 3 L 12-44 % Monocytes (%) (Auto) 3 0-12 % Eosinophils (%) (Auto) 0 0-10 % Basophils (%) (Auto) 0 0-10 % Neutrophils # (Auto) 18.4 H 1.8-7.8 10^3/uL Lymphocytes # (Auto) 0.6 L 1.0-4.0 10^3/uL Monocytes # (Auto) 0.6 0.0-1.0 10^3/uL Eosinophils # (Auto) 0.1 0.0-0.3 10^3/uL Basophils # (Auto) 0.0 0.0-0.1 10^3/uL Immature Granulocyte # (Auto) 0.2 H 0.0-0.1 10^3/uL Neutrophils % (Manual) 87 % Lymphocytes % (Manual) 4 % Monocytes % (Manual) 2 % Eosinophils % (Manual) 2 % Metamyelocytes % 2 % Band Neutrophils 3 % Basophilic Stippling SLIGHT Microcytosis SLIGHT Sodium Level 117 *L 135-145 MMOL/L Potassium Level 4.0 3.6-5.0 MMOL/L Chloride Level 69 L 98-107 MMOL/L Carbon Dioxide Level 29 21-32 MMOL/L Anion Gap 19 H 5-14 MMOL/L Blood Urea Nitrogen 84 H 7-18 MG/DL Creatinine 4.54 H 0.60-1.30 MG/DL Estimat Glomerular Filtration Rate 10 BUN/Creatinine Ratio 19 Glucose Level 59 *L 70-105 MG/DL Calcium Level 9.2 8.5-10.1 MG/DL Phosphorus Level 6.6 H 2.3-4.7 MG/DL Magnesium Level 1.7 1.6-2.4 MG/DL Total Creatine Kinase 2681 #H 29-168 U/L Myoglobin 3098.3 H 10.0-92.0 NG/ML Radiology CXR 12/17/20: IMPRESSION: Patchy left basilar infiltrate and mild central pulmonary venous congestion. Physical Exam-(CHC) Physical Exam Vital Signs VS - Last 72 Hours, by Label 12/17/20 12/17/20 12/17/2012/18/21 21:11 21:11 21:43 00:55 Temp 36.3 36.8 Pulse 67 61 74 Resp 20 18 30 B/P (MAP) 64/44 (51) 104/67 Pulse Ox 97 99 91 O2 Delivery Nasal Cannula Nasal Cannula NIV Bilevel O2 Flow Rate 3.00 3.00 40.00 60.00 12/18/20 12/18/20 12/18/20 12/18/20 01:00 01:00 01:09 01:11 Temp 35.8 Pulse 71 70 Resp 15 B/P (MAP) 93/58 Pulse Ox 92 O2 Delivery Nasal Cannula Nasal Cannula Nasal Cannula O2 Flow Rate 9.00 9.00 9.00 12/18/20 12/18/20 12/18/20 12/18/20 01:15 01:30 01:43 01:45 Pulse 73 68 70 Resp 26 15 B/P (MAP) 103/58 99/54 87/62 Pulse Ox 91 94 91 98 O2 Delivery Nasal Cannula Nasal Cannula Nasal Cannula Nasal Cannula O2 Flow Rate 9.00 9.00 8.00 9.00 12/18/20 12/18/20 12/18/20 12/18/20 02:03 02:30 02:53 03:04 Pulse 70 65 67 65 Resp 14 9 10 9 B/P (MAP) 98/49 99/48 80/63 87/51 Pulse Ox 97 93 89 O2 Delivery Nasal Cannula Nasal Cannula Nasal Cannula Nasal Cannula O2 Flow Rate 9.00 9.00 9.00 9.00 12/18/20 12/18/20 12/18/20 12/18/20 03:15 04:00 04:00 04:00 Temp 35.9 Pulse 68 64 Resp 10 9 B/P (MAP) 95/69 95/66 Pulse Ox 97 91 O2 Delivery Nasal Cannula Nasal Cannula Nasal Cannula O2 Flow Rate 9.00 9.00 9.00 12/18/20 12/18/20 12/18/20 12/18/20 05:00 06:08 07:00 07:53 Temp 36.0 Pulse 69 73 73 Resp 9 9 B/P (MAP) 84/56 104/77 Pulse Ox 93 O2 Delivery Nasal Cannula Nasal Cannula O2 Flow Rate 9.00 9.00 12/18/20 08:00 Pulse Ox 93 O2 Delivery Nasal Cannula O2 Flow Rate 10.00 Capillary Refill : Less Than 3 Seconds General Appearance: obese (lethargic) Respiratory: decreased breath sounds Cardiovascular: regular rate, rhythm, no edema Gastrointestinal: normal bowel sounds, non tender, soft Neurologic/Psychiatric: No motor weakness; other (lethargic, oriented to self and location) Skin: warm/dry Assessment/Plan Assessment/Plan Admission Status: Inpatient Order (span 2 midnights) Reason for Inpatient Admission: Severe acute renal failure and marked hyponatremia which will require 48 hours or more to safely correct. (1) Acute kidney injury Status: Acute Assessment & Plan: Suspect acute hypovolemic/prerenal, however creatinine was mildly elevated in July, so may have been developing over some time. NS @ 200 mls/hr, following serial BMP, minimal improvement in creatinine, but trending down. No hyperkalemia. (2) COPD exacerbation Status: Acute Assessment & Plan: Solumedrol given in ER, respiratory support as needed, supplemental oxygen dependent at baseline. ABX started for UTI. (3) Acidosis Status: Acute Assessment & Plan: Respiratory and metabolic with elevated PCO2 and high AG. (4) Diarrhea Status: Acute Assessment & Plan: No stool since admit, if diarrhea persists, check c diff, stool culture. Qualifiers: Qualified Codes: R19.7 - Diarrhea, unspecified (5) Anemia Status: Chronic Assessment & Plan: Stable since July, suspect anemia of chronic disease, check iron studies. (6) Obesity Status: Chronic (7) Cardiomyopathy Status: Chronic (8) History of congestive heart failure Status: Chronic Assessment & Plan: BNP and troponin normal/negative on admit. Monitor closely given high rates of IVF for her hypovolemia/hyponatremia. (9) Chronic pain Status: Chronic (10) Anxiety Status: Chronic (11) Urinary tract infection Status: Acute Assessment & Plan: History of multidrug resistant infection. Started on meropenem based on prior cultures. Does not appear to have sepsis- no elevated WBC, afebrile, no tachycardia, LA normal. Qualifiers: Qualified Codes: N30.01 - Acute cystitis with hematuria (12) Hypoglycemia Status: Resolved (13) Hyponatremia Status: Acute Assessment & Plan: Suspect hypovolemic, however, she does also have history of CHF and risk for hypervolemia. Slightly trending up with NS, may need hypertonic saline, continue to follow serial levels and adjust fluids as needed. (14) Altered mental status Status: Acute Assessment & Plan: Suspect secondary to hyponatremia and acute renal failure, improved somewhat this morning. Qualifiers: Qualified Codes: R41.82 - Altered mental status, unspecified (15) Elevated creatine kinase Status: Acute Assessment & Plan: Uncertain etiology, monitor with fluid resuscitation. (16) Hypotension Status: Resolved Qualifiers: Qualified Codes: I95.89 - Other hypotension; E86.1 - Hypovolemia (17) Hospice care patient Status: Resolved Assessment & Plan: Pt has been on hospice, revoked status for admission. When asked if she would want intubated or transferred for dialysis if needed, she stated she does want any aggressive care that would be needed. (18) Acute on chronic respiratory failure Status: Acute Assessment & Plan: Flu A and B and Sars-CoV-2 neg. CXR with possible patchy infiltrate, but remainder of findings not consistent with pneumonia. BNP normal, lower suspicion for significant pulmonary edema. Suspect secondary to COPD exacerbation. Qualifiers: Qualified Codes: J96.21 - Acute and chronic respiratory failure with hypoxia; J96.22 - Acute and chronic respiratory failure with hypercapnia (19) DVT prophylaxis Status: Acute Assessment & Plan: Heparin JAISON MARTINEZ MD Dec 18, 2020 08:59
[2020-12-18 10:08] LABS: CALCIUM 9.2 MG/DL (8.5-10.1); CREATININE SERUM 4.13 MG/DL (0.60-1.30); POTASSIUM 3.9 MMOL/L (3.6-5.0)
--- NOTE | 2020-12-18 11:19 | Tele-ICU Progress Note ---
Subjective Time Seen by a Provider: 10:10 Sepsis Event Evaluation Height, Weight, BMI Height: 5'9.00" Weight: 197lbs. 0.9oz. 89.742385zf; 48.55 BMI Method:Stated Focused Exam Lactate Level 12/17/20 21:22: Lactic Acid Level 0.62 Exam Exam Patient acknowledged, consented, and participated in this virtual visit which was conducted using real time audio/video Vital Signs Date Time Temp Pulse Resp B/P (MAP) Pulse Ox O2 Delivery O2 Flow Rate FiO2 12/18/20 08:00 93 Nasal Cannula 10.00 12/18/20 07:53 36.0 12/18/20 07:00 73 12/18/20 06:08 73 9 104/77 93 Nasal Cannula 9.00 12/18/20 05:00 69 9 84/56 Nasal Cannula 9.00 12/18/20 04:00 64 9 95/66 Nasal Cannula 9.00 12/18/20 04:00 35.9 12/18/20 04:00 91 Nasal Cannula 9.00 12/18/20 03:15 68 10 95/69 97 Nasal Cannula 9.00 12/18/20 03:04 65 9 87/51 89 Nasal Cannula 9.00 12/18/20 02:53 67 10 80/63 93 Nasal Cannula 9.00 12/18/20 02:30 65 9 99/48 Nasal Cannula 9.00 12/18/20 02:03 70 14 98/49 97 Nasal Cannula 9.00 12/18/20 01:45 70 87/62 98 Nasal Cannula 9.00 12/18/20 01:43 91 Nasal Cannula 8.00 12/18/20 01:30 68 15 99/54 94 Nasal Cannula 9.00 12/18/20 01:15 73 26 103/58 91 Nasal Cannula 9.00 12/18/20 01:11 70 12/18/20 01:09 71 15 93/58 92 Nasal Cannula 9.00 12/18/20 01:00 35.8 Nasal Cannula 9.00 12/18/20 01:00 Nasal Cannula 9.00 12/18/20 00:55 36.8 74 30 104/67 91 NIV Bilevel 60.00 12/17/20 21:43 61 18 99 40.00 12/17/20 21:11 Nasal Cannula 3.00 12/17/20 21:11 36.3 67 20 64/44 (51) 97 Nasal Cannula 3.00 I & O0 12/18/20 07:00 Intake Total 3410 ml Output Total 2150 ml Balance 1260 ml Height & Weight Height: 5'9.00" Weight: 197lbs. 0.9oz. 89.307054xz; 48.55 BMI Method:Stated General Appearance: WD/WN, Mild Distress HEENT: PERRL/EOMI, Normal ENT Inspection Neck: Normal Inspection; No JVD Respiratory: No Accessory Muscle Use, Decreased Breath Sounds, Wheezing Cardiovascular: Regular Rate, Rhythm, No Edema, No Murmur Capillary Refill: Less Than 3 Seconds Extremity: Normal Inspection, No Pedal Edema Neurologic/Psychiatric: Other (Generalized weakness, arousable to voice. Answers questions with one-word answers) Skin: Normal Color, Warm/Dry Results Lab Laboratory Tests 12/17/20 21:22 12/18/20 00:35 12/18/20 04:45 12/18/20 09:40 Assessment/Plan Assessment/Plan (Tele-ICU Physician , Progress Note ) Available chart/ vitals / labs / Images reviewed Video assessment done using teleICU camera, rest of exam as per RN Discussed with RN , EXAM PER RN Events overnight : Afebrile I/O = neg Drips: Pressors: , hemodynamically stable Consultants: Hospital course: 12/18- to ICU - hypoNatremia , AMS A/P Hyponatremia - 114 on admission , confusion , no Sx reported ( newly presented same in July 2020 , improved to 137 on d/c - recurrent now MAYRA - new , ? dehydration , rhabdo - cont IVF - UO > 3L since admission - follow closely Encephalopathy - probaly due to Na - as per bedside - improving , follow COPD, severe - PFT 2018 - severe obstriction, no responf to br dlator , FEV1 1.4L ( 45% ) , hyperinflation - chronic hypoxia on home O2 reported - will resume home meds , follo w, no indication for IF steroids now , but received one dose in ER - 60 - WILL CONT IF MORE hypoxic Acute ( mild ) on Chronic resp failure - hypercarbic mildly , hypoxic - on 10 L - start resp regiment , gollow Rhabdo - etiology not clear , no Sx reported - will check urine tox CHF , ICM , CAD - EF 30 % - monitor closely I/O DM II - hypoglycemia this am - follow - as per PCP Anemia - follow Suspected UTI as per report from [place] - abx started , follow Obesity BMI 29 As per previous notes : Medical noncompliance and drug seeking behavior., History of methamphetamine use Lines : periph (Central Line Necessity Reviewed) Liang: + OG: Nutrition: npo Analgesia: Anxiety/ delirium VTE Prophylaxis: heparin Sq Stress Ulcer Prophylaxis: ppi Glycemic Control: Plans in collaboration with bedside consultants and IM MDs. Discussed with RN to reach out if any questions or concerns A total of 36 minutes of critical care time was devoted to this patient today, required to treat and/or prevent further deterioration of critical care condition ( as above) . BRANDON MENDIETA MD Dec 18, 2020 11:18
[2020-12-18 11:29] LABS: AMPHETAMINE SCREEN, URINE NEGATIVE (NEGATIVE); BARBITURATE SCREEN URINE NEGATIVE (NEGATIVE); BENZODIAZEPINES SCREEN URINE POSITIVE (NEGATIVE); CANNABINOID SCREEN, URINE NEGATIVE (NEGATIVE); COCAINE SCREEN URINE NEGATIVE (NEGATIVE); METHADONE STAT NEGATIVE (NEGATIVE); METHAMPHETAMINE SCREEN URINE S NEGATIVE (NEGATIVE); OPIATE SCREEN URINE POSITIVE (NEGATIVE); OXYCODONE STAT NEGATIVE (NEGATIVE); PROPOXYPHENE STAT NEGATIVE (NEGATIVE); TRICYCLIC ANTIDEPRESSANTS SCRE NEGATIVE (NEGATIVE)
[2020-12-18] MEDS ORDERED: POTA10TA36 PO (11:29)
[2020-12-18] MEDS ORDERED: FLUC100T6 PO (11:29)
[2020-12-18] MEDS ORDERED: METO5TAB6 PO (11:29)
[2020-12-18] MEDS ORDERED: NITR100C10 PO (11:29)
[2020-12-18] MEDS ORDERED: CIPR500T5 PO (11:29)
[2020-12-18] MEDS ORDERED: MULT-1060 PO (11:29)
[2020-12-18] MEDS ORDERED: MENT118G TP (11:29)
[2020-12-18] MEDS: methylPREDNISolone 125 MG (Solu-MEDROL) VIAL IVP SCH ×2 (12:06→18:15)
[2020-12-18] MEDS: MEROPENEM 500 MG/SWFI 10 ML IV PUSH IV SCH ×2 (12:06)
[2020-12-18 15:19] LABS: CALCIUM 8.8 MG/DL (8.5-10.1); CREATININE SERUM 3.73 MG/DL (0.60-1.30)
[2020-12-18 17:22] LABS: POTASSIUM 3.9 MMOL/L (3.6-5.0)
[2020-12-18 17:23] LABS: CALCIUM 8.3 MG/DL (8.5-10.1)
[2020-12-18 17:28] LABS: CREATININE SERUM 3.67 MG/DL (0.60-1.30)
[2020-12-18 21:43] LABS: POTASSIUM 4.2 MMOL/L (3.6-5.0)
[2020-12-18 21:45] LABS: CALCIUM 8.3 MG/DL (8.5-10.1)
[2020-12-18 21:49] LABS: CREATININE SERUM 3.62 MG/DL (0.60-1.30)
[2020-12-18] MEDS ORDERED: ALBUMIN 25% 25 GM/100 ML 100 ML IV ONE (22:45)
[2020-12-18] MEDS: PHENYLEPHRINE INJECTION 10 MG in NS (IVPB) 250 ML IV SCH (23:02)
[2020-12-18] MEDS ORDERED: RT-ALBUTEROL/IPRATROPIUM 3 ML (DUONEB) VIAL ONE (23:11)
[2020-12-18] MEDS: RT-ALBUTEROL/IPRATROPIUM 3 ML (DUONEB) VIAL INH PRN (23:16)
--- NOTE | 2020-12-19 00:12 | Consultation - Surgery ---
History of Present Illness History of Present Illness Patient Consulted On(eric/time) 12/19/20 00:11 Date Seen by Provider: Dec 19, 2020 Time Seen by Provider: 00:11 History of Present Illness Consult requested by TeleICU for central line placement. Patient is a 55 year old female in the ICU, for severe acute renal failure and marked hyponatremia. Patient with limited iv access and is now hypotensive. Systolic pressure dropped into the 40's now 80's. Requiring pressors. Having some shortness of air. Patient no other complaints at this time. Allergies and Home Medications Allergies Coded Allergies: buspirone (Verified Allergy, Mild, 05/02/17) Made"legs Shaky" amitriptyline (Verified Allergy, Unknown, 05/02/17) " MAKES ME DO WEIRD THINGS LIKE WALK IN MY SLEEP AND HAVE HALLUCINATIONS." Patient Home Medication List Home Medication List Reviewed: Yes Albuterol Sulfate (Proventil Hfa) 6.7 Gm Hfa.aer.ad, 2 PUFF INH Q4H PRN for SHORTNESS OF BREATH, (Reported) Entered as Reported by: DANIELLE RICHARD on 07/31/201615 Last Action: Reviewed Aspirin (Aspirin EC) 81 Mg Tablet.dr, 81 MG PO DAILY, (Reported) Entered as Reported by: HARSH PARRISH on 11/19/17 1603 Last Action: Continued Benzonatate (Benzonatate) 100 Mg Capsule, 100 MG PO QID, (Reported) Entered as Reported by: DANIELLE RICHARD on 07/31/201615 Last Action: Held Bumetanide (Bumetanide) 1 Mg Tablet, 1 MG PO DAILY, (Reported) Entered as Reported by: DANIELLE RICHARD on 07/31/201615 Last Action: Held Carvedilol (Carvedilol) 6.25 Mg Tablet, 3.125 MG PO BID WITH MEALS, (Reported) Entered as Reported by: DANIELLE RICHARD on 07/31/201615 Last Action: Continued Ciprofloxacin HCl (Ciprofloxacin HCl) 500 Mg Tablet, 500 MG PO BID, (Reported) Entered as Reported by: DANIELLE RICHARD on 12/18/20 1129 Last Action: Held Fentanyl (Fentanyl Patch 50 MCG) 1 Each Patch.td72, 50 MCG TD Q72H, (Reported) Entered as Reported by: DANIELLE RICHARD on 07/31/201615 Last Action: Continued Fentanyl (Fentanyl Patch 100 MCG) 1 Each Patch.td72, 100 MCG TD Q72H, (Reported) Entered as Reported by: DANIELLE RICHARD on 07/31/201615 Last Action: Continued Fluconazole (Fluconazole) 100 Mg Tablet, 100 MG PO DAILY, (Reported) Entered as Reported by: DANIELLE RICHARD on 12/18/20 112 Last Action: Held Fluoxetine HCl (Fluoxetine HCl) 20 Mg Capsule, 20 MG PO DAILY, (Reported) Entered as Reported by: DANIELLE RICHARD on 07/31/201615 Last Action: Continued Furosemide (Furosemide) 20 Mg Tablet, 20 MG PO 0600,1800, (Reported) Entered as Reported by: HARSH PARRISH on 11/19/17 1502 Last Action: Held Furosemide (Furosemide) 40 Mg Tablet, 40 MG PO 0600,1800, (Reported) Entered as Reported by: DANIELLE RICHARD on 07/31/201615 Last Action: Held Glimepiride (Glimepiride) 1 Mg Tablet, 1 MG PO DAILY PRN for WHEN TAKING PREDNISONE, (Reported) Entered as Reported by: HARSH PARRISH on 04/29/17 1346 Last Action: Held Hydrocodone/Acetaminophen (Hydrocodone-Acetamin 10-325 mg) 1 Each Tablet, 1 EA PO Q6H PRN for PAIN-MODERATE (5-7), (Reported) Entered as Reported by: DANIELLE RICHARD on 07/31/201615 Last Action: Reviewed Ipratropium/Albuterol Sulfate (Iprat-Albut 0.5-3(2.5) mg/3 ml) 3 Ml Ampul.neb, 3 ML IH Q6H PRN for SHORTNESS OF BREATH, (Reported) Entered as Reported by: HARSH PARRISH on 08/26/17 1605 Last Action: Reviewed Lorazepam (Ativan) 1 Mg Tablet, 4 MG PO Q4H, (Reported) Entered as Reported by: DANIELLE RICHARD on 07/31/201615 Last Action: Held Menthol (Biofreeze) 118 Ml Gel..ml., 1 APPLIC TP UD PRN for PAIN-BREAKTHROUGH, (Reported) Entered as Reported by: DANIELLE RICHARD on 12/18/201128 Last Action: Converted Metolazone (Metolazone) 5 Mg Tablet, 5 MG PO 0600,1800, (Reported) Entered as Reported by: DANIELLE RICHARD on 12/18/201128 Last Action: Held Morphine Sulfate (Morphine Conc. 20mg/ml) 100 Mg/5 Ml Solution, 0.5-1 ML PO Q15M PRN for AIR HUNGER, (Reported) Entered as Reported by: DANIELLE RICHARD on 07/31/201615 Last Action: Held Multivitamin/Iron/Folic Acid (Centrum Women Tablet) 1 Each Tablet, 1 EACH PO DAILY, (Reported) Entered as Reported by: DANIELLE RICHARD on 12/18/201128 Last Action: Held Nitrofurantoin Monohyd/M-Cryst (Nitrofurantoin [place]-Mcr 100 mg) 100 Mg Capsule, 1 EA PO HS, (Reported) Entered as Reported by: DANIELLE RICHARD on 12/18/201128 Last Action: Held Olanzapine (Olanzapine) 10 Mg Tablet, 10 MG PO HS, (Reported) Entered as Reported by: DANIELLE RICHARD on 07/31/201615 Last Action: Converted Potassium Chloride (Potassium Chloride) 10 Meq Tab.er.prt, 20 MEQ PO DAILY, (Reported) Entered as Reported by: DANIELLE RICHARD on 12/18/201128 Last Action: Held Prednisone (Prednisone) 10 Mg Tab, 10 MG PO DAILY, (Reported) Entered as Reported by: DANIELLE RICHARD on 07/31/201615 Last Action: Held Promethazine HCl (Promethazine HCl) 12.5 Mg Tablet, 12.5-25 MG PO Q6H PRN for NAUSEA/VOMITING-2ND LINE, (Reported) Entered as Reported by: DANIELLE RICHARD on 07/31/201615 Last Action: Held Sacubitril/Valsartan (Entresto 24 mg-26 mg Tablet) 1 Each Tablet, 1 TAB PO 0600,1800, (Reported) Entered as Reported by: HARSH PARRISH on 11/19/171603 Last Action: Held Discontinued Medications Nitrofurantoin Macrocrystal (Nitrofurantoin) 100 Mg Capsule, 100 MG PO DAILY, (Reported) Discontinued Reason: Duplicate Order Entered as Reported by: DANIELLE RICHARD on 07/31/201615 Last Action: Discontinued Potassium Chloride (Potassium Chloride) 10 Meq Capsule.er, 10 MEQ PO DAILY, (Reported) Discontinued Reason: Duplicate Order Entered as Reported by: DANIELLE RICHARD on 07/31/201615 Last Action: Discontinued [Trimethoprim/Sulfamethoxazole] 1 EA TAB, 1 EA PO BID WITH MEALS Discontinued Reason: Duplicate Order Prescribed by: JAISON NORWOOD on 08/03/20 1119 Last Action: Discontinued Past Subybkh-Tmoeho-Ngkghv Hx Patient Social History Drug of Choice: + IV METH, ALSO SMOKES IT; MULTIPLE BENZODIAZEPINE OD'S Smoking Status: Unknown if Ever Smoked Type Used: Cigarettes 2nd Hand Smoke Exposure: Yes Recent Hopitalizations: Yes Alcohol Use?: Unable to obtain Have you traveled recently?: No Immunizations Up To Date Tetanus Booster (TDap): Unknown Date of Pneumonia Vaccine: Apr 30, 2018 Date of Influenza Vaccine: Apr 30, 2018 Seasonal Allergies Seasonal Allergies: No Surgeries History of Surgeries: Yes (EGD/COLONOSCOPY; CARDIAC CATH 09/18/17--NO INTERVENTION) Surgeries: Cardiac Respiratory History of Respiratory Disorde: Yes (O2 AT 2-3L/NC) Respiratory Disorders: Pneumonia, Chronic Bronchitis, Sleep Apnea, COPD Cardiovascular History of Cardiac Disorders: Yes Cardiac Disorders: Cardiomyopathy, Coronary Artery Disease, High Cholesterol, Hypertension Neurological History of Neurological Disord: Yes Neurological Disorders: Headaches /Migraines 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 System Hx 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 Disorders: No Sexually Transmitted Disease: No HIV/AIDS: No 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 Disorders: Denies 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 Genitourinary History of Genitourinary Disor: No Gastrointestinal History of Gastrointestinal Di: Yes (GASTRITIS AND ESOPHAGEAL CANDIDIASIS 04/2017) Gastrointestinal Disorders: Gastroesophageal Reflux, Gastrointestinal Bleed, Chronic Constipation, Chronic Diarrhea, Esophagitis, Ulcer Musculoskeletal History of Musculoskeletal Dis: Yes (chronic shoulder and neck pain) Endocrine History of Endocrine Disorders: Yes (DM- only while on steriods per pt) Endocrine Disorders: Diabetes, Non-Insulin dep HEENT History of HEENT Disorders: No Cancer History of Cancer: No Psychosocial History of Psychiatric Problem: Yes (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; POLYSUBSTANCE ABUSE) Behavioral Health Disorders: Sleep Difficulties, Anxiety, Suicide Attempts, Bipolar, Depression Integumentary History of Skin or Integumenta: No Blood Transfusions History of Blood Disorders: Yes (ANEMIA) Adverse Reaction to a Blood Tr: No Reviewed Nursing Assessment Reviewed/Agree w Nursing PMH: Yes Family Medical History Significant Family History: Heart Disease, Cancer Family Medial History: Cancer 03 MOTHER, Onset:66 (LUNG ) 09 BROTHER (LUNG ) Congestive heart failure 03 FATHER Review of Systems-General ROS-Unable to Obtain: short of air and hypotensive, not able to provide. Physical Exam-General Problems Physical Exam Vital Signs Vital Signs - First Documented 12/18/20 23:16 FiO2 60 Capillary Refill : Less Than 3 Seconds General Appearance: mild distress (respiratory slightly labored.), obese HEENT: PERRL/EOMI, normal ENT inspection Neck: full range of motion, supple Respiratory: chest non-tender, other (labored breathing) Cardiovascular: regular rate, rhythm, no JVD Gastrointestinal: non tender, soft Rectal: deferred Back: no CVA tenderness Extremities: non-tender Neurologic/Psychiatric: alert; No oriented x 3 Skin: normal color, warm/dry Lymphatic: no adenopathy Data Review Labs Laboratory Tests 12/18/20 00:35: Sodium Level 115*L, Potassium Level 3.5L, Chloride Level 68L, Carbon Dioxide Level 30, Anion Gap 17H, Blood Urea Nitrogen 85H, Creatinine 4.65#H, Estimat Glomerular Filtration Rate 10, BUN/Creatinine Ratio 18, Glucose Level 77, Calcium Level 9.2, Triglycerides Level 40, Cholesterol Level 193, LDL Cholesterol Direct 120, VLDL Cholesterol 8, HDL Cholesterol 57 12/18/20 02:02: Glucometer 71 12/18/20 04:17: Glucometer 73 12/18/20 04:45: Sodium Level 117*L, Potassium Level 4.0, Chloride Level 69L, Carbon Dioxide Level 29, Anion Gap 19H, Blood Urea Nitrogen 84H, Creatinine 4.54H, Estimat Glomerular Filtration Rate 10, BUN/Creatinine Ratio 19, Glucose Level 59*L, Calcium Level 9.2, White Blood Count 20.0H, Red Blood Count 3.38L, Hemoglobin 9.7L, Hematocrit 28L, Mean Corpuscular Volume 82, Mean Corpuscular Hemoglobin 29, Mean Corpuscular Hemoglobin Concent 35, Red Cell Distribution Width 14.1, Platelet Count 301, Mean Platelet Volume 9.4, Immature Granulocyte % (Auto) 1, Neutrophils (%) (Auto) 92H, Lymphocytes (%) (Auto) 3L, Monocytes (%) (Auto) 3, Eosinophils (%) (Auto) 0, Basophils (%) (Auto) 0, Neutrophils # (Auto) 18.4H, Lymphocytes # (Auto) 0.6L, Monocytes # (Auto) 0.6, Eosinophils # (Auto) 0.1, Basophils # (Auto) 0.0, Immature Granulocyte # (Auto) 0.2H, Neutrophils % (Manual) 87, Lymphocytes % (Manual) 4, Monocytes % (Manual) 2, Eosinophils % (Manual) 2, Metamyelocytes % 2, Band Neutrophils 3, Basophilic Stippling SLIGHT, Microcytosis SLIGHT, Phosphorus Level 6.6H, Magnesium Level 1.7, Total Creatine Kinase 2681#H, Myoglobin 3098.3H 12/18/20 06:32: Glucometer 169H 12/18/20 07:29: Glucometer 178H 12/18/20 09:40: Sodium Level 116*L, Potassium Level 3.9, Chloride Level 73L, Carbon Dioxide Level 24, Anion Gap 19H, Blood Urea Nitrogen 78H, Creatinine 4.13#H, Estimat Glomerular Filtration Rate 11, BUN/Creatinine Ratio 19, Glucose Level 118H, Calcium Level 9.2 12/18/20 10:00: Glucometer 133H 12/18/20 10:45: Urine Opiates Screen POSITIVEH, Urine Oxycodone Screen NEGATIVE, Urine Methadone Screen NEGATIVE, Urine Propoxyphene Screen NEGATIVE, Urine Barbiturates Screen NEGATIVE, Ur Tricyclic Antidepressants Screen NEGATIVE, Urine Phencyclidine Screen NEGATIVE, Urine Amphetamines Screen NEGATIVE, Urine Methamphetamines Screen NEGATIVE, Urine Benzodiazepines Screen POSITIVEH, Urine Cocaine Screen NEGATIVE, Urine Cannabinoids Screen NEGATIVE 12/18/20 11:52: Glucometer 109 12/18/20 13:21: Glucometer 102 12/18/20 14:50: Sodium Level 121*L, Potassium Level 4.0, Chloride Level 74L, Carbon Dioxide Level 32, Anion Gap 15H, Blood Urea Nitrogen 75H, Creatinine 3.73#H, Estimat Glomerular Filtration Rate 13, BUN/Creatinine Ratio 20, Glucose Level 93, Calcium Level 8.8, Iron Level 54, Total Iron Binding Capacity 241, Unsaturated Iron Binding Capacity 187, Transferrin % Saturation 22, Ferritin 309.3H, Total Creatine Kinase 1807H 12/18/20 17:07: Sodium Level 119*L, Potassium Level 3.9, Chloride Level 76L, Carbon Dioxide Level 31, Anion Gap 12, Blood Urea Nitrogen 73H, Creatinine 3.67H, Estimat Saira merular Filtration Rate 13, BUN/Creatinine Ratio 20, Glucose Level 101, Calcium Level 8.3L 12/18/20 20:47: Glucometer 242H 12/18/20 21:20: Sodium Level 121*L, Potassium Level 4.2, Chloride Level 76L, Carbon Dioxide Level 29, Anion Gap 16H, Blood Urea Nitrogen 69H, Creatinine 3.62H, Estimat Glomerular Filtration Rate 13, BUN/Creatinine Ratio 19, Glucose Level 209H, Calcium Level 8.3L Microbiology 12/17/20 Urine Culture - Preliminary, Resulted Gram Negative Chace 12/17/20 Blood Culture - Preliminary, Resulted No growth Assessment/Plan Assessment/Plan Assessment/Plan Hypotension Poor venous acess Severe acute renal failure hyponatremia COPD Patient needing central line placed. Will place emergently. Needing pressors for hyptension Chest x ray after central line. Will sign off, call if needed. PROCEDURE: U/s guided central line placement right IJ. Patient prepped and draped in sterile fashion. U/s used to visualize the right IJ. Local 1% lidocaine 3 mL injected. The right IJ accessed under u/s guidance. Dark nonpulsatile blood withdrawn. Wire was inserted and needle removed. 11 blade scalpel used to make small skin incision at insertion point. Dilator advanced over wire and removed. Cather was advanced over wire and wire removed. All port accessed and flushed. Secured with 3-0 silk and sterile bandage applied. Tolerated procedure well. Chest x ray pending. JOVANNA RAMOS DO Dec 19, 2020 00:12
[2020-12-19] MEDS: NS IV 1000 ML 1,000 ML IV SCH ×5 (00:20→14:51)
[2020-12-19] MEDS: methylPREDNISolone 125 MG (Solu-MEDROL) VIAL IVP SCH ×3 (00:20→11:53)
[2020-12-19] MEDS: MEROPENEM 500 MG/SWFI 10 ML IV PUSH IV SCH ×4 (00:21→11:54)
[2020-12-19 02:31] LABS: BASOPHILS % (AUTO) 0 % (0-10); EOSINOPHILS % (AUTO) 0 % (0-10); HEMATOCRIT 25 % (35-52); HEMOGLOBIN 8.4 g/dL (11.5-16.0); LYMPHOCYTES # (AUTO) 0.5 10^3/uL (1.0-4.0); LYMPHOCYTES % (AUTO) 4 % (12-44); MEAN CORPUSCULAR HEMOGLOBIN 29 pg (25-34); MEAN CORPUSCULAR HGB CONC 34 g/dL (32-36); MEAN CORPUSCULAR VOLUME 85 fL (80-99); MEAN PLATELET VOLUME 9.6 fL (9.0-12.2); MONOCYTES # (AUTO) 0.3 10^3/uL (0.0-1.0); MONOCYTES % (AUTO) 3 % (0-12); NEUTROPHILS # (AUTO) 12.2 10^3/uL (1.8-7.8); NEUTROPHILS % (AUTO) 92 % (42-75); PLATELET COUNT 362 10^3/uL (130-400); WHITE BLOOD COUNT 13.2 10^3/uL (4.3-11.0)
[2020-12-19] MEDS: RT-ALBUTEROL/IPRATROPIUM 3 ML (DUONEB) VIAL INH PRN ×2 (02:33→22:43)
[2020-12-19] MEDS: PHENYLEPHRINE INJECTION 10 MG in NS (IVPB) 250 ML IV SCH ×2 (02:42→04:46)
[2020-12-19 02:49] LABS: ALBUMIN 3.1 GM/DL (3.2-4.5); BILIRUBIN,TOTAL 0.3 MG/DL (0.1-1.0); CALCIUM 8.4 MG/DL (8.5-10.1); CREATININE SERUM 3.61 MG/DL (0.60-1.30); MAGNESIUM 2.1 MG/DL (1.6-2.4); PHOSPHORUS 4.6 MG/DL (2.3-4.7); TOTAL PROTEIN 5.6 GM/DL (6.4-8.2)
[2020-12-19] MEDS ORDERED: 1/2 NS IV SOLUTION 1,000 ML IV ONE (03:19)
[2020-12-19] MEDS: 1/2 NS IV SOLUTION 1,000 ML IV SCH ×2 (03:22→12:09)
[2020-12-19] MEDS: KCL 20 MEQ TAB (K-DUR) PO SCH (05:11)
[2020-12-19] MEDS: MAGNESIUM 1 GM/100 ML IVPB 100 ML IV SCH (05:11)
[2020-12-19] MEDS: POTASSIUM CL 10MEQ/50ML IVPB 50 ML IV SCH (05:11)
[2020-12-19] MEDS: inSUlin ASPART (NovoLOG) 1 UNIT/0.01 ML (CHARGE PER UNIT) SC SCH ×4 (05:18→21:04)
[2020-12-19 06:08] LABS: ABG BASE EXCESS 11.5 MMOL/L (-2.5-2.5); ABG OXYGEN SATURATION 96 % (94-100); ABG PCO2 58 MMHG (35-45); ABG PH 7.42 (7.37-7.43); ABG PO2 81 MMHG (79-93); ABG TCO2 38.1 MMOL/L (21.0-31.0)
[2020-12-19 06:09] LABS: ALLENS TEST YES-POS; INSPIRED O2 25 L; PATIENT TEMP 37.4; VENTILATOR NO
[2020-12-19] MEDS: PHENYLEPHRINE INJECTION 20 MG in NS (IVPB) 250 ML IV SCH ×4 (06:52→21:05)
--- NOTE | 2020-12-19 07:46 | Diagnostic Imaging Report ---
Indication: Sepsis Portable chest shows normal heart size and vascularity. There is left basilar atelectasis. No infiltrates or effusions are evident. There has been placement of a right-sided IJ line since 12/17/2020. Tip is in the SVC. IMPRESSION: Catheter tip is in the SVC. The chest is similar to the 12/17/2020 study. Dictated by: Dictated on workstation # [id number]
[2020-12-19] MEDS: PANTOPRAZOLE 40 MG (PROTONIX) VIAL IV SCH (08:04)
--- NOTE | 2020-12-19 09:18 | Tele-ICU Progress Note ---
Subjective Date Seen by a Provider: Dec 19, 2020 Time Seen by a Provider: 09:18 Sepsis Event Evaluation Height, Weight, BMI Height: 5'9.00" Weight: 197lbs. 0.9oz. [id number]; 48.55 BMI Method:Stated Focused Exam Lactate Level 12/17/20 21:22: Lactic Acid Level 0.62 Exam Exam Patient acknowledged, consented, and participated in this virtual visit which was conducted using real time audio/video Vital Signs Date Time Temp Pulse Resp B/P (MAP) Pulse Ox O2 Delivery O2 Flow Rate FiO2 12/19/20 08:11 95 Vapotherm 25.00 65 12/19/20 08:00 81 10 96/65 91 Vapotherm 25.00 65.00 12/19/20 07:38 36.8 12/19/20 07:29 96 Vapotherm 25.00 65 12/19/20 07:00 81 12/19/20 07:00 80 11 101/68 93 Vapotherm 25.00 65.00 12/19/20 06:52 83 78/48 12/19/20 06:00 85 11 84/57 92 Vapotherm 25.00 65.00 12/19/20 05:00 80 10 94/71 95 Vapotherm 25.00 65.00 12/19/20 04:46 80 79/50 12/19/20 04:00 80 10 79/50 95 Vapotherm 25.00 65.00 12/19/20 04:00 96 Vapotherm 40.00 100 12/19/20 04:00 37.1 12/19/20 03:21 Vapotherm 25.00 65.00 12/19/20 03:00 Vapotherm 30.00 75.00 12/19/20 03:00 86 20 82/53 95 Vapotherm 30.00 75.00 12/19/20 02:42 80 108/68 12/19/20 02:33 96 Vapotherm 40.00 100 12/19/20 02:00 78 10 82/62 94 Vapotherm 40.00 100.00 12/19/20 01:00 82 12/19/20 01:00 81 11 80/59 97 Vapotherm 40.00 100.00 12/19/20 00:00 96 Vapotherm 40.00 100 12/19/20 00:00 87 12 97/54 97 Vapotherm 40.00 100.00 12/19/20 00:00 Vapotherm 40.00 100.00 12/18/20 23:16 91 Vapotherm 25.00 60 12/18/20 23:02 90 60/32 12/18/20 23:00 93 24 85/39 94 Nasal Cannula 5.00 12/18/20 22:00 84 12 78/43 94 Nasal Cannula 5.00 12/18/20 21:00 87 14 99/62 97 Nasal Cannula 5.00 12/18/20 20:00 93 High Flow N/C 10.00 12/18/20 20:00 88 12 93/61 96 Nasal Cannula 5.00 12/18/20 19:55 36.3 12/18/20 19:00 84 17 86/47 89 Nasal Cannula 5.00 12/18/20 19:00 87 12/18/20 18:02 Nasal Cannula 5.00 12/18/20 18:00 79 11 84/63 94 Nasal Cannula 9.00 12/18/20 17:00 75 8 76/42 90 Nasal Cannula 9.00 12/18/20 16:00 93 OxyMask 6.00 12/18/20 16:00 75 10 110/67 90 Nasal Cannula 9.00 12/18/20 15:00 76 15 85/50 90 Nasal Cannula 9.00 12/18/20 14:00 79 18 102/66 90 Nasal Cannula 9.00 12/18/20 13:00 75 12/18/20 13:00 62/41 Nasal Cannula 9.00 12/18/20 12:00 95 17 142/77 91 Nasal Cannula 9.00 12/18/20 12:00 36.0 12/18/20 12:00 93 Nasal Cannula 8.00 12/18/20 11:00 93 11 138/78 93 Nasal Cannula 9.00 12/18/20 10:00 82 18 128/76 92 Nasal Cannula 9.00 I & O 12/19/20 07:00 Intake Total 2850 ml Output Total 4425 ml Balance -1575 ml Height & Weight Height: 5'9.00" Weight: 197lbs. 0.9oz. [id number]; 48.55 BMI Method:Stated General Appearance: WD/WN, Mild Distress HEENT: PERRL/EOMI, Normal ENT Inspection Neck: Normal Inspection; No JVD Respiratory: No Accessory Muscle Use, Decreased Breath Sounds, Wheezing Cardiovascular: Regular Rate, Rhythm, No Edema, No Murmur Capillary Refill: Less Than 3 Seconds Gastrointestinal: normal bowel sounds, non tender, soft Extremity: Normal Inspection, No Pedal Edema Neurologic/Psychiatric: Other (Generalized weakness, arousable to voice. Answers questions with one-word answers) Skin: Normal Color, Warm/Dry Results Lab Laboratory Tests 12/17/20 21:22 12/18/20 00:35 12/18/20 04:45 12/18/20 09:40 12/18/20 14:50 12/18/20 17:07 12/18/20 21:20 12/19/20 02:10 Assessment/Plan Assessment/Plan (Tele-ICU Physician , Progress Note ) Available chart/ vitals / labs / Images reviewed Video assessment done using teleICU camera, rest of exam as per RN Discussed with RN , EXAM PER RN Events overnight : ON DANYELLE for hypotension ,Vapotherm 25L 65% Afebrile I/O = neg 1700 Drips: Pressors: , hemodynamically stable Consultants: Hospital course: 12/18- to ICU - hypoNatremia 114, AMS 12/19- DANYELLE , Vapotherm 25L 65% A/P Hyponatremia - 114 on admission ( to 121 in 24 h ) , confusion , no Sx reported ( newly presented same in July 2020 , improved to 137 on d/c - recurrent now - aim for 130 by tomorrow- on 03/10 ns 100 MAYRA - new , ? dehydration , rhabdo - cont IVF , Cr improving , might need US latter - UO > 3L since admission - follow closely Shock - ? septic vs cardiogenic - will check trop , lactate and follow closely - danyelle started 12/19 Encephalopathy - probaly due to Na - as per bedside - improving , follow Acute ( mild ) on Chronic resp failure on admission - hypercarbic mildly , hypoxic - on 10 L -12/19 - Vapotherm 25L 65 % - fluid balance negative with elev BNP - will cont resp meds +steroids , IS - can not diurese with being on pressors - follow COPD, severe - PFT 2018 - severe obstriction, no responf to br dlator , FEV1 1.4L ( 45% ) , hyperinflation . CT chest 07/2020 - mild emphesema - chronic hypoxia on home O2 reported - will resume home meds - steroids IV SM 60 q 6 - ? chronic steroids Rhabdo - etiology not clear , no Sx reported - improving CHF , ICM , CAD - EF 30 % , BNP >200 - monitor closely I/O DM II - onsteroid - as per PCP Anemia - follow Suspected UTI as per report from [facility] - E coli on cx 12/18 - merrem 12/18 started , follow sens Obesity BMI 29 Chronic pain meds As per previous notes : Medical noncompliance and drug seeking behavior., History of methamphetamine use Lines : Right IJ 12/19 (Central Line Necessity Reviewed) Liang: + OG: Nutrition: npo Analgesia: Anxiety/ delirium VTE Prophylaxis: heparin Sq Stress Ulcer Prophylaxis: ppi Glycemic Control: Plans in collaboration with bedside consultants and IM MDs. Discussed with RN to reach out if any questions or concerns A total of 36 minutes of critical care time was devoted to this patient today, required to treat and/or prevent further deterioration of critical care condi tion ( as above) . BRANDON MENDIETA MD Dec 19, 2020 09:18
[2020-12-19] MEDS ORDERED: NON-FORMULARY MEDICATION 1 EA EA (Menthol (Biofreeze) 1 APPLIC) TP PRN (11:00)
[2020-12-19] MEDS: fentaNYL PATCH 100 MCG (DURAGESIC) TD SCH (12:06)
--- NOTE | 2020-12-19 12:20 | Consultation-Cardiology ---
HPI-Cardiology Cardiology Consultation Date of Consultation 12/19/20 Date of Admission Time Seen by Provider: 09:18 Indication: elevated BNP, history of CHF HPI Patient is a 55 y/o female with history of nonobstructive CAD, nonischemic cardiomyopathy, severe COPD. Admitted to the hospital for MAYRA, hyponatremia, AMS and AE COPD. Noted to have elevated BNP. Currently denying any chest pain. Reports chronic dyspnea on exertion. Complaining of peripheral edema over the past several weeks with weight gain. Denies any dizziness, lightheadedness or syncope. Home Medications & Allergies Allergies: Coded Allergies: buspirone (Verified Allergy, Mild, 05/02/17) Made"legs Shaky" amitriptyline (Verified Allergy, Unknown, 05/02/17) " MAKES ME DO WEIRD THINGS LIKE WALK IN MY SLEEP AND HAVE HALLUCINATIONS." Home Medication List Reviewed: Yes HGM-Rmjshg-Lacrgm Hx Patient Social History Marital Status: single Drug of Choice: + IV METH, ALSO SMOKES IT; MULTIPLE BENZODIAZEPINE OD'S Smoking Status: Unknown if Ever Smoked Type Used: Cigarettes 2nd Hand Smoke Exposure: Yes Recent Hopitalizations: Yes Have you traveled recently?: No Alcohol Use?: Unable to obtain Immunizations Up To Date Tetanus Booster (TDap): Unknown Date of Pneumonia Vaccine: Apr 30, 2018 Date of Influenza Vaccine: Apr 30, 2018 Past Medical History COPD, CHF, HTN Family Medical History Significant Family History: Heart Disease, Cancer Family History: Cancer 03 MOTHER, Onset:66 (LUNG ) 09 BROTHER (LUNG ) Congestive heart failure 03 FATHER Review of Systems-General Review of Systems Constitutional: see HPI, malaise, weakness EENTM: No no symptoms reported, No hearing loss, No blurred vision, No double vision Respiratory: see HPI; No cough; dyspnea on exertion, short of breath Cardiovascular: see HPI; No chest pain; edema; No Hx of Intervention Gastrointestinal: diarrhea Genitourinary: No hematuria : No Musculoskeletal: back pain Skin: no symptoms reported Psychiatric/Neurological: See HPI Reviewed Test Results Reviewed Test Results Lab Laboratory Tests 12/18/20 13:21: Glucometer 102 12/18/20 14:50: Sodium Level 121*L, Potassium Level 4.0, Chloride Level 74L, Carbon Dioxide Level 32, Anion Gap 15H, Blood Urea Nitrogen 75H, Creatinine 3.73#H, Estimat Glomerular Filtration Rate 13, BUN/Creatinine Ratio 20, Glucose Level 93, Calcium Level 8.8, Iron Level 54, Total Iron Binding Capacity 241, Unsaturated Iron Binding Capacity 187, Transferrin % Saturation 22, Ferritin 309.3H, Total Creatine Kinase 1807H 12/18/20 17:07: Sodium Level 119*L, Potassium Level 3.9, Chloride Level 76L, Carbon Dioxide Level 31, Anion Gap 12, Blood Urea Nitrogen 73H, Creatinine 3.67H, Estimat Glomerular Filtration Rate 13, BUN/Creatinine Ratio 20, Glucose Level 101, Tu cium Level 8.3L 12/18/20 20:47: Glucometer 242H 12/18/20 21:20: Sodium Level 121*L, Potassium Level 4.2, Chloride Level 76L, Carbon Dioxide Level 29, Anion Gap 16H, Blood Urea Nitrogen 69H, Creatinine 3.62H, Estimat Glomerular Filtration Rate 13, BUN/Creatinine Ratio 19, Glucose Level 209H, Calcium Level 8.3L 12/19/20 02:10: Sodium Level 125*L, Potassium Level 4.0, Chloride Level 78L, Carbon Dioxide Level 32, Anion Gap 15H, Blood Urea Nitrogen 72H, Creatinine 3.61H, Estimat Glomerular Filtration Rate 13, BUN/Creatinine Ratio 20, Glucose Level 241H, Calcium Level 8.4L, White Blood Count 13.2H, Red Blood Count 2.92L, Hemoglobin 8.4L, Hematocrit 25L, Mean Corpuscular Volume 85, Mean Corpuscular Hemoglobin 29, Mean Corpuscular Hemoglobin Concent 34, Red Cell Distribution Width 14.3, Platelet Count 362, Mean Platelet Volume 9.6, Immature Granulocyte % (Auto) 2, Neutrophils (%) (Auto) 92H, Lymphocytes (%) (Auto) 4L, Monocytes (%) (Auto) 3, Eosinophils (%) (Auto) 0, Basophils (%) (Auto) 0, Neutrophils # (Auto) 12.2H, Lymphocytes # (Auto) 0.5L, Monocytes # (Auto) 0.3, Eosinophils # (Auto) 0.0, B asophils # (Auto) 0.0, Immature Granulocyte # (Auto) 0.2H, Corrected Calcium 9.1, Phosphorus Level 4.6, Magnesium Level 2.1, Total Bilirubin 0.3, Aspartate Amino Transf (AST/SGOT) 62H, Alanine Aminotransferase (ALT/SGPT) 32, Alkaline Phosphatase 58, B-Type Natriuretic Peptide 296.0H, Total Protein 5.6L, Albumin 3.1L 12/19/20 05:16: Glucometer 268H 12/19/20 06:00: Blood Gas Puncture Site R RAD, Blood Gas Patient Temperature 37.4, Arterial Blood pH 7.42, Arterial Blood Partial Pressure CO2 58H, Arterial Blood Partial Pressure O2 81, Arterial Blood HCO3 36H, Arterial Blood Total CO2 38.1H, Arter ial Blood Oxygen Saturation 96, Arterial Blood Base Excess 11.5H, Torsten Test YES-POS, Blood Gas Ventilator Setting NO, Blood Gas Inspired Oxygen 25 L 12/19/20 12:05: Glucometer 284H Microbiology 12/18/20 MRSA Screen - Final, Complete MRSA not isolated 12/17/20 Urine Culture - Preliminary, Resulted Escherichia coli 12/17/20 Blood Culture - Preliminary, Resulted No growth Radiology CXR 12/17/20: IMPRESSION: Patchy left basilar infiltrate and mild central pulmonary venous congestion. ECG Impression ECG Initial ECG Rhythm: Normal Sinus Physical Exam Physical Exam Vital Signs Vital Signs - First Documented 12/18/20 23:16 FiO2 60 Capillary Refill : Less Than 3 Seconds Height, Weight, BMI Height: 5'9.00" Weight: 197lbs. 0.9oz. 89.327908nl; 48.55 BMI Method:Stated General Appearance: WD/WN, Mild Distress HEENT: PERRL/EOMI, Normal ENT Inspection Neck: Normal Inspection; No JVD Respiratory: No Accessory Muscle Use, Decreased Breath Sounds, Wheezing Cardiovascular: Regular Rate, Rhythm, No Edema, No Murmur Gastrointestinal: Normal Bowel Sounds, Non Tender, Soft Extremity: Normal Inspection, No Pedal Edema Neurologic/Psychiatric: Other (Generalized weakness, arousable to voice. Answers questions with one-word answers) Skin: Normal Color, Warm/Dry A/P-Cardiology Admission Diagnosis CHF Acute kidney injury Hyponatremia COPD, AE Assessment/Plan Congestive heart failure, chronic left ventricular systolic dysfunction, nonischemic cardiomyopathy, last echocardiogram was done on June 2020 showing ejection fraction 50-55 percent, grade 1 diastolic dysfunction, PA 40-45mmHg. Was naintained on Entresto, beta nacho as outpatient. Seen at in the past, stopped visiting with [facility], noted to have mildly elevated BNP with this admission, I will repeat echo. Entresto now contraindicated d/t Creatinine > 3. Acute kidney injury, continue to monitor renal function. Severe COPD, acute exacerbation, oxygen dependent, had been on hospice d/t end stage COPD until this admission. Hyponatremia, continue to monitor. UTI, started on antibiotic, management per medical services. Diarrhea, reporting improvement Coronary artery disease, history of cardiac catheterization done in March 2014 and September 2017 showing [id number] coronary artery disease nonobstructive disease. Continue to monitor Anemia, likely anemia of chronic disease, continue to monitor H/H. Persistent migraine headache on multiple drugs, history of methamphetamine use managed by primary care physician Complete heart block with bradycardia, transient due to beta blockers and calcium channel blockers treatment, no further syncopal episodes were reported. Continue to monitor. Hypertension, currently hypotensive, continue to monitor blood pressure. Obesity, BMI is 47. We discussed weight loss. History of anxiety, depression. History of diabetes mellitus, followed and managed by primary care physician. History of noncompliance with medication. Multiple addictions mainly prescription medications. Currently doing well. Ex Tobaccoism, encouraged to continue with smoking cessation History of methamphetamine use Mild carotid stenosis, nonobstructive disease by ultrasound in November 2016. Thank you for allowing us to participate in the management of Ms. Veras. This is Jocelyn Bernstein PA-C, as a scribe for Dr. Auguste. Patient was seen and evaluated with Jocelyn, interviewed the patient, feeling better, breathing better, still on Vapotherm. Still having dyspnea on exertion Continue to monitor renal function, had a long discussion regarding her hospice status, patient does not want end of life support, was requiring frequent doses of pain medication and continuous oxygen and subsequently requested hospice. We discussed the possibility of needing dialysis and patient agreed with dialysis if needed, at this point I can arrange for follow-up with the multiple cut off saw operator as an outpatient Continue to monitor renal function, discontinue all medication that could worsen renal function Monitor fluid balance status closely. JOCELYN HEAD Dec 19, 2020 12:20 FRANCESCO AUGUSTE MD Dec 19, 2020 14:09
--- NOTE | 2020-12-19 12:28 | Progress Note ---
Subjective Subjective/Events-last exam Afebrile, much more alert today. She states she is feeling okay, denies pain, feels like her breathing is near baseline. She states she wants to go home. On further questioning, she is able to state her name and that she is in the hospital and the day, month, but does state 2019 rather than 2020 for year). She says she is here because she felt very badly, but she isn't able to recall how she got here and asks if she brought herself. She thinks she was discharged from the nursing facility prior to admission, but she she does recall she was receiving hospice services, and she says "If I remembered I was on hospice, I wouldn't have come to the hospital". She says she wants to stop all these treatments and go home. When I told her that with her low blood pressure and kidney failure, I am concerned that she may within days rather than months, she said "It's going to happen eventually", but she also states "I'll be fine, just stop everything and send me home". Further history obtained from her daughter [place] via telephone- she states that patient was doing pretty well last week, and they had in fact taken some trips out of the nursing facility, but on the evening of her admission, she was called by the nursing facility who stated patient was minimally responsive and confused, so she and her siblings came and when they talked to Aylin, she reportedly clearly sat up and said she wanted to go to the hospital. In fact, [place] states she was somewhat frustrated, because Aylin's wishes seemed very clear and [place] felt that EMS and others kept asking Aylin over and over if she was sure, and Aylin was sure. [place] states patient has been using hospice services due to needing high doses of opiates and benzodiazepines for her air hunger and anxiety with her end stage COPD, but has not expressed readiness for end of life prior to this. Focused Exam Lactate Level 12/17/20 21:22: Lactic Acid Level 0.62 Objective Exam Last Set of Vital Signs Vital Signs Date Time Temp Pulse Resp B/P (MAP) Pulse Ox O2 Delivery O2 Flow Rate FiO2 12/19/20 12:00 36.8 12/19/20 11:49 84 111/79 12/19/20 10:00 10 93 Vapotherm 25.00 65.00 12/19/20 08:11 65 Capillary Refill : Less Than 3 Seconds I&O Intake and Output 12/19/20 00:00 Intake Total 3710 ml Output Total 5500 ml Balance -1790 ml Intake Oral 500 ml IV Total 3210 ml Output Urine Total 5500 ml Daily Weight Change No General: Alert, No Acute Distress Lungs: Other (decreased air movement throughout) Heart: Regular Rate Abdomen: Normal Bowel Sounds, Soft Neuro: Normal Speech Psych/Mental Status: Mood NL Results/Procedures Lab Laboratory Tests 12/18/20 13:21: Glucometer 102 12/18/20 14:50: Sodium Level 121*L, Potassium Level 4.0, Chloride Level 74L, Carbon Dioxide Level 32, Anion Gap 15H, Blood Urea Nitrogen 75H, Creatinine 3.73#H, Estimat Glomerular Filtration Rate 13, BUN/Creatinine Ratio 20, Glucose Level 93, Calcium Level 8.8, Iron Level 54, Total Iron Binding Capacity 241, Unsaturated Iron Binding Capacity 187, Transferrin % Saturation 22, Ferritin 309.3H, Total Creatine Kinase 1807H 12/18/20 17:07: Sodium Level 119*L, Potassium Level 3.9, Chloride Level 76L, Carbon Dioxide Level 31, Anion Gap 12, Blood Urea Nitrogen 73H, Creatinine 3.67H, Estimat Glomerular Filtration Rate 13, BUN/Creatinine Ratio 20, Glucose Level 101, Calcium Level 8.3L 12/18/20 20:47: Glucometer 242H 12/18/20 21:20: Sodium Level 121*L, Potassium Level 4.2, Chloride Level 76L, Carbon Dioxide Level 29, Anion Gap 16H, Blood Urea Nitrogen 69H, Creatinine 3.62H, Estimat Glomerular Filtration Rate 13, BUN/Creatinine Ratio 19, Glucose Level 209H, Calcium Level 8.3L 12/19/20 02:10: Sodium Level 125*L, Potassium Level 4.0, Chloride Level 78L, Carbon Dioxide Level 32, Anion Gap 15H, Blood Urea Nitrogen 72H, Creatinine 3.61H, Estimat Glomerular Filtration Rate 13, BUN/Creatinine Ratio 20, Glucose Level 241H, Calcium Level 8.4L, White Blood Count 13.2H, Red Blood Count 2.92L, Hemoglobin 8.4L, Hematocrit 25L, Mean Corpuscular Volume 85, Mean Corpuscular Hemoglobin 29, Mean Corpuscular Hemoglobin Concent 34, Red Cell Distribution Width 14.3, Platelet Count 362, Mean Platelet Volume 9.6, Immature Granulocyte % (Auto) 2, Neutrophils (%) (Auto) 92H, Lymphocytes (%) (Auto) 4L, Monocytes (%) (Auto) 3, Eosinophils (%) (Auto) 0, Basophils (%) (Auto) 0, Neutrophils # (Auto) 12.2H, Lymphocytes # (Auto) 0.5L, Monocytes # (Auto) 0.3, Eosinophils # (Auto) 0.0, Basophils # (Auto) 0.0, Immature Granulocyte # (Auto) 0.2H, Corrected Calcium 9.1, Phosphorus Level 4.6, Magnesium Level 2.1, Total Bilirubin 0.3, Aspartate Amino Transf (AST/SGOT) 62H, Alanine Aminotransferase (ALT/SGPT) 32, Alkaline Phosphatase 58, B-Type Natriuretic Peptide 296.0H, Total Protein 5.6L, Albumin 3.1L 12/19/20 05:16: Glucometer 268H 12/19/20 06:00: Blood Gas Puncture Site R RAD, Blood Gas Patient Temperature 37.4, Arterial Blood pH 7.42, Arterial Blood Partial Pressure CO2 58H, Arterial Blood Partial Pressure O2 81, Arterial Blood HCO3 36H, Arterial Blood Total CO2 38.1H, Arterial Blood Oxygen Saturation 96, Arterial Blood Base Excess 11.5H, Torsten Test YES-POS, Blood Gas Ventilator Setting NO, Blood Gas Inspired Oxygen 25 L 12/19/20 12:05: Glucometer 284H Microbiology 12/18/20 MRSA Screen - Final, Complete MRSA not isolated 12/17/20 Urine Culture - Preliminary, Resulted Escherichia coli 12/17/20 Blood Culture - Preliminary, Resulted No growth Radiology CXR 12/17/20: IMPRESSION: Patchy left basilar infiltrate and mild central pulmonary venous congestion. Assessment/Plan Assessment/Plan (1) Acute kidney injury Status: Acute Assessment & Plan: Suspect acute hypovolemic/prerenal, however creatinine was mildly elevated in July, so may have been developing over some time. NS @ 200 mls/hr, following serial BMP, minimal improvement in creatinine, but trending down. No hyperkalemia. 12/19- creatinine improved to 3.61, but rate of improve has slowed. NS decreased to 100 mls/hr, continuing to follow. (2) COPD exacerbation Status: Acute Assessment & Plan: Solumedrol given in ER, respiratory support as needed, supplemental oxygen dependent at baseline. ABX started for UTI. 12/19- titrate steroid dose down (3) Acidosis Status: Resolved Assessment & Plan: Respiratory and metabolic with elevated PCO2 and high AG on admit (4) Diarrhea Status: Resolved Assessment & Plan: No stool since admit, if diarrhea persists, check c diff, stool culture. Qualifiers: Qualified Codes: R19.7 - Diarrhea, unspecified (5) Anemia Status: Chronic Assessment & Plan: Stable since July, suspect anemia of chronic disease, check iron studies. 12/19- ferritin high, iron normal, TIBC low normal consistent with chronic disease. (6) Obesity Status: Chronic (7) Cardiomyopathy Status: Chronic (8) History of congestive heart failure Status: Chronic Assessment & Plan: BNP and troponin normal/negative on admit. Monitor closely given high rates of IVF for her hypovolemia/hyponatremia. 12/19- BNP increased to 300s, hypotensive this morning, check echo and consult Cardiology. Resume carvedilol, holding sacubatril/losartan and diuretics d/t ARF. (9) Chronic pain Status: Chronic Assessment & Plan: Resume home pain medications (10) Anxiety Status: Chronic Assessment & Plan: Ativan prn (11) Urinary tract infection Status: Acute Assessment & Plan: History of multidrug resistant infection. Started on me ropenem based on prior cultures. Does not appear to have sepsis- no elevated WBC, afebrile, no tachycardia, LA normal. Meropenem day 2 Qualifiers: Qualified Codes: N30.01 - Acute cystitis with hematuria (12) Hypoglycemia Status: Resolved (13) Hyponatremia Status: Acute Assessment & Plan: Suspect hypovolemic, however, she does also have history of CHF and risk for hypervolemia. Slightly trending up with NS, may need hypertonic saline, continue to follow serial levels and adjust fluids as needed. 12/19 improving, Na 125 this am, IV rate decreased (14) Altered mental status Status: Resolved Assessment & Plan: Suspect secondary to hyponatremia and acute renal failure, improved somewhat this morning. 12/19- coherent and able to discuss her illness today Qualifiers: Qualified Codes: R41.82 - Altered mental status, unspecified (15) Elevated creatine kinase Status: Acute Assessment & Plan: Uncertain etiology, monitor with fluid resuscitation, improving. (16) Hypotension Status: Acute Assessment & Plan: 12/19 Had initial hypotension improved with fluid, but recurred overnight, started on phenylephrine drip per ICU consult physician Qualifiers: Qualified Codes: I95.89 - Other hypotension; E86.1 - Hypovolemia (17) Hospice care patient Status: Resolved Assessment & Plan: Pt has been on hospice, revoked status for admission. When asked if she would want intubated or transferred for dialysis if needed, she stated she does want any aggressive care that would be needed. 12/19 today patient is more alert, and now says she wants to stop everything and go home, however this is inconsistent with her previous statements, and we did discuss that with her current illness, stopping everything may lead to rapid decompensation. I asked her if she had discussed with her family and she had not, and I asked if I could discuss with her daughter, Aylin agreed that would be good and she would wait to make changes based on further discussion. On discussion with [place], she did state patient has previously not expressed this kind of wish in spite of being on hospice (and historically, pt has been readmitted and revoked hospice other times in the past as well), so she would like to talk to Aylin and the other family and get some more information. W ill proceed with heart eval and Cardiology consult to see where heart function is currently to assist in decision making as well. (18) Acute on chronic respiratory failure Status: Acute Assessment & Plan: Flu A and B and Sars-CoV-2 neg. CXR with possible patchy infiltrate, but remainder of findings not consistent with pneumonia. BNP normal, lower suspicion for significant pulmonary edema. Suspect secondary to COPD exacerbation. Qualifiers: Qualified Codes: J96.21 - Acute and chronic respiratory failure with hypoxia; J96.22 - Acute and chronic respiratory failure with hypercapnia (19) DVT prophylaxis Status: Acute Assessment & Plan: Heparin JAISON NORWOOD MD Dec 19, 2020 12:27
[2020-12-19 13:52] LABS: CHLORIDE 81 MMOL/L (98-107); POTASSIUM 3.9 MMOL/L (3.6-5.0)
[2020-12-19 13:53] LABS: CALCIUM 8.8 MG/DL (8.5-10.1)
[2020-12-19 13:54] LABS: GLUCOSE 273 MG/DL (70-105)
[2020-12-19 13:55] LABS: CARBON DIOXIDE 30 MMOL/L (21-32)
[2020-12-19 13:58] LABS: BUN/CREATININE RATIO 21; GFR ESTIMATED 16
[2020-12-19 14:07] LABS: SODIUM 125 MMOL/L (135-145)
[2020-12-19] MEDS ORDERED: NS IV 1000 ML 1,000 ML ONE (14:43)
[2020-12-19] MEDS: OLANZapine 5 MG (ZyPREXA) TAB PO SCH (20:04)
[2020-12-19 21:33] LABS: CREATININE SERUM 3.06 MG/DL (0.60-1.30); POTASSIUM 3.9 MMOL/L (3.6-5.0)
[2020-12-19] MEDS: LORazepam INJ 2 MG/ML (ATIVAN) VIAL IVP PRN (22:40)
[2020-12-20] MEDS: 1/2 NS IV SOLUTION 1,000 ML IV SCH ×3 (00:31→20:29)
[2020-12-20] MEDS: MEROPENEM 500 MG/SWFI 10 ML IV PUSH IV SCH ×4 (00:38→12:11)
[2020-12-20] MEDS: methylPREDNISolone 125 MG (Solu-MEDROL) VIAL IVP SCH ×3 (00:38→23:17)
[2020-12-20] MEDS: NS IV 1000 ML 1,000 ML IV SCH ×3 (00:40→21:23)
[2020-12-20] MEDS: PHENYLEPHRINE INJECTION 20 MG in NS (IVPB) 250 ML IV SCH ×2 (02:22→07:11)
[2020-12-20 04:54] LABS: BASOPHILS % (AUTO) 0 % (0-10); EOSINOPHILS % (AUTO) 0 % (0-10); HEMATOCRIT 26 % (35-52); HEMOGLOBIN 8.4 g/dL (11.5-16.0); LYMPHOCYTES # (AUTO) 0.7 10^3/uL (1.0-4.0); LYMPHOCYTES % (AUTO) 5 % (12-44); MEAN CORPUSCULAR HEMOGLOBIN 28 pg (25-34); MEAN CORPUSCULAR HGB CONC 32 g/dL (32-36); MEAN CORPUSCULAR VOLUME 87 fL (80-99); MONOCYTES # (AUTO) 0.8 10^3/uL (0.0-1.0); MONOCYTES % (AUTO) 5 % (0-12); NEUTROPHILS # (AUTO) 13.7 10^3/uL (1.8-7.8); NEUTROPHILS % (AUTO) 88 % (42-75); PLATELET COUNT 338 10^3/uL (130-400); WHITE BLOOD COUNT 15.6 10^3/uL (4.3-11.0)
[2020-12-20 05:04] LABS: ALBUMIN 3.6 GM/DL (3.2-4.5); POTASSIUM 3.8 MMOL/L (3.6-5.0)
[2020-12-20] MEDS: LORazepam INJ 2 MG/ML (ATIVAN) VIAL IVP PRN ×6 (05:04→23:17)
[2020-12-20 05:05] LABS: CALCIUM 9.2 MG/DL (8.5-10.1)
[2020-12-20 05:06] LABS: TOTAL PROTEIN 6.1 GM/DL (6.4-8.2)
[2020-12-20 05:08] LABS: BILIRUBIN,TOTAL 0.2 MG/DL (0.1-1.0)
[2020-12-20 05:09] LABS: PHOSPHORUS 2.8 MG/DL (2.3-4.7)
[2020-12-20 05:10] LABS: CREATININE SERUM 2.57 MG/DL (0.60-1.30)
[2020-12-20 05:12] LABS: MAGNESIUM 2.1 MG/DL (1.6-2.4)
[2020-12-20] MEDS: MAGNESIUM 1 GM/100 ML IVPB 100 ML IV SCH (05:21)
[2020-12-20] MEDS: KCL 20 MEQ TAB (K-DUR) PO SCH (05:21)
[2020-12-20] MEDS: RT-ALBUTEROL/IPRATROPIUM 3 ML (DUONEB) VIAL INH PRN ×2 (05:21→20:54)
[2020-12-20] MEDS: POTASSIUM CL 10MEQ/50ML IVPB 50 ML IV SCH (05:21)
[2020-12-20] MEDS: inSUlin ASPART (NovoLOG) 1 UNIT/0.01 ML (CHARGE PER UNIT) SC SCH ×4 (06:03→20:34)
--- NOTE | 2020-12-20 08:08 | Cardiology Progress Note ---
Subjective Date Seen by Provider: Dec 20, 2020 Time Seen by Provider: 08:06 Subjective/Events-last exam Patient in bed, denies any chest pain, continues to have dyspnea. Review of Systems General: No Chills, No Night Sweats; Fatigue, Malaise; No Appetite, No Other HEENT: No Head Aches, No Visual Changes, No Eye Pain, No Ear Pain, No Dysphasia, No Sinus Congestion, No Post Nasal Drip, No Sore Throat, No Other Pulmonary: Dyspnea; No Cough, No Pleuritic Chest Pain, No Other Cardiovascular: Edema; No: Chest Pain, Palpitations, Orthopnea, Paroxysmal Noc. Dyspnea, Lt Headedness, Other Focused Exam Lactate Level 12/17/20 21:22: Lactic Acid Level 0.62 12/19/20 13:20: Lactic Acid Level 1.19 Objective-Cardiology Exam Last Set of Vital Signs Vital Signs 12/20/20 12/20/20 12/20/20 12/20/20 12/20/20 06:00 06:56 07:11 07:45 08:24 Temp 36.6 Pulse 75 Resp 12 B/P (MAP) 128/83 Pulse Ox 96 O2 Delivery Vapotherm O2 Flow Rate 20.00 65.00 FiO2 65 I&O Intake and Output 12/20/20 00:00 Intake Total 1965 ml Output Total 4125 ml Balance -2160 ml Intake Oral 855 ml IV Total 1110 ml Output Urine Total 4125 ml General: Alert, No Acute Distress Neck: Supple Lungs: Other (decreased air movement throughout) Heart: Regular Rate, Normal S1, Normal S2 Abdomen: Normal Bowel Sounds, Soft Extremities: Other (+1 edema BLE) Neuro: Normal Speech Psych/Mental Status: Mood NL Results Lab Laboratory Tests 12/19/20 13:20 12/19/20 21:00 12/20/20 04:45 A/P-Cardiology Admission Diagnosis CHF Acute kidney injury Hyponatremia COPD, AE Assessment/Plan Congestive heart failure, chronic left ventricular systolic dysfunction, nonischemic cardiomyopathy, last echocardiogram was done on June 2020 showing ejection fraction 50-55 percent, grade 1 diastolic dysfunction, PA 40-45mmHg. Was naintained on Entresto, beta nacho as outpatient. Seen at in the past, stopped visiting with , noted to have mildly elevated BNP with this admission. Echocardiogram done 12/19/20 showing EF 45-50%. Beta nacho currently on hold d/t hypotension. Entresto now contraindicated d/t Creatinine > 3. Acute kidney injury, slowly improving, continue to monitor renal function. Severe COPD, acute exacerbation, oxygen dependent, had been on hospice d/t end stage COPD until this admission. Currently on Vapotherm, still significantly dyspneic, worse today, I will give 1 dose of Lasix and monitor response and monitor renal function closely Hyponatremia, improving, continue to monitor. UTI, started on antibiotic, management per medical services. Diarrhea, reporting improvement Coronary artery disease, history of cardiac catheterization done in March 2014 and September 2017 showing [id number] coronary artery disease nonobstructive disease. Continue to monitor Anemia, likely anemia of chronic disease, continue to monitor H/H. Persistent migraine headache on multiple drugs, history of methamphetamine use managed by primary care physician Complete heart block with bradycardia, transient due to beta blockers and calcium channel blockers treatment, no further syncopal episodes were reported. Continue to monitor. Hypertension, currently hypotensive, continue to monitor blood pressure. Obesity, BMI is 47. We discussed weight loss. History of anxiety, depression. History of diabetes mellitus, followed and managed by primary care physician. History of noncompliance with medication. Multiple addictions mainly prescription medications. Currently doing well. Ex Tobaccoism, encouraged to continue with smoking cessation History of methamphetamine use Mild carotid stenosis, nonobstructive disease by ultrasound in November 2016. Supervisory-Addendum Brief Supervisory Addendum Participated in pt care: history, MDM, physical Personally performed: exam, history, MDM Care discussed with: DAVID Results interpretation: Verified all documentation Notes: Patient was seen and evaluated with Jocelyn, examination performed, management plan was discussed, agree with the current scribed note, I made few changes to the note using Italic font Patient was seen at bedside, having shortness of breath more than yesterday Still on Vapotherm Appeared to be tired and dyspneic at rest I will give a single dose of Lasix IV and evaluate tolerance and response Continue to monitor renal function closely Patient will need evaluation by non destructive evaluation manager JOCELYN HEAD Dec 20, 2020 08:08 FRANCESCO GOULD MD Dec 20, 2020 08:57
[2020-12-20] MEDS: PANTOPRAZOLE 40 MG (PROTONIX) VIAL IV SCH (08:16)
[2020-12-20] MEDS: ASPIRIN E.C. 81 MG (ECOTRIN) TAB PO SCH (08:16)
[2020-12-20] MEDS: FLUoxetine HCL 20 MG (PROzac) CAP PO SCH (08:16)
[2020-12-20] MEDS: fentaNYL PATCH 50 MCG (DURAGESIC) TD SCH (08:16)
[2020-12-20] MEDS: [UNRECOGNIZED DRUG - OTHER] TP SCH (09:54)
[2020-12-20] MEDS ORDERED: FUROSEMIDE 40 MG/4 ML INJ (LASIX) IVP NR (10:00)
--- NOTE | 2020-12-20 10:35 | Tele-ICU Progress Note ---
Subjective Date Seen by a Provider: Dec 20, 2020 Time Seen by a Provider: 10:35 Sepsis Event Evaluation Height, Weight, BMI Height: 5'9.00" Weight: 197lbs. 0.9oz. 89.969490ug; 48.55 BMI Method:Stated Focused Exam Lactate Level 12/17/20 21:22: Lactic Acid Level 0.62 12/19/20 13:20: Lactic Acid Level 1.19 Exam Exam Patient acknowledged, consented, and participated in this virtual visit which was conducted using real time audio/video Vital Signs Date Time Temp Pulse Resp B/P (MAP) Pulse Ox O2 Delivery O2 Flow Rate FiO2 12/20/20 10:00 76 11 122/78 Vapotherm 20.00 65.00 12/20/20 09:00 77 11 121/74 Vapotherm 20.00 65.00 12/20/20 08:24 Vapotherm 20.00 65.00 12/20/20 08:00 75 9 130/84 94 Vapotherm 25.00 65.00 12/20/20 08:00 97 Vapotherm 20.00 65 12/20/20 07:45 36.6 12/20/20 07:11 75 128/83 12/20/20 07:00 73 12 128/83 95 Vapotherm 25.00 65.00 12/20/20 06:56 96 Vapotherm 20.00 65 12/20/20 06:38 75 12/20/20 06:00 84 12 91/71 94 Vapotherm 25.00 65.00 12/20/20 05:21 94 Vapotherm 20.00 65 12/20/20 05:00 105 12 120/60 93 Vapotherm 25.00 65.00 12/20/20 04:00 96 Vapotherm 25.00 65 12/20/20 04:00 78 116 115/68 Vapotherm 25.00 65.00 12/20/20 03:00 74 12 109/68 94 Vapotherm 25.00 65.00 12/20/20 02:22 80 108/61 12/20/20 02:00 79 16 108/61 97 Vapotherm 25.00 65.00 12/20/20 01:55 95 Vapotherm 20.00 55 12/20/20 01:00 75 17 119/80 97 Vapotherm 25.00 65.00 12/20/20 01:00 75 12/20/20 00:00 74 25 113/73 98 Vapotherm 25.00 65.00 12/20/20 00:00 96 Vapotherm 25.00 65 12/19/20 23:00 74 12 117/74 97 Vapotherm 25.00 65.00 12/19/20 22:43 97 Vapotherm 20.00 65 12/19/20 22:00 87 34 103/60 95 Vapotherm 25.00 65.00 12/19/20 21:15 103/54 12/19/20 21:05 79 115/66 12/19/20 21:00 79 11 67/36 95 Vapotherm 25.00 65.00 12/19/20 20:30 92 Vapotherm 20.00 55 12/19/20 20:00 36.8 12/19/20 20:00 74 12 128/78 96 Vapotherm 25.00 65.00 12/19/20 20:00 96 Vapotherm 25.00 65 12/19/20 19:00 72 21 132/83 98 Vapotherm 25.00 65.00 12/19/20 19:00 76 12/19/20 18:00 77 12 120/78 97 Vapotherm 25.00 65.00 12/19/20 17:00 83 36 124/78 93 Vapotherm 25.00 65.00 12/19/20 16:00 80 39 112/75 95 Vapotherm 25.00 65.00 12/19/20 15:51 81 124/81 12/19/20 15:35 96 Vapotherm 25.00 65 12/19/20 15:00 81 22 124/81 95 Vapotherm 25.00 65.00 12/19/20 14:00 76 12 118/85 97 Vapotherm 25.00 65.00 12/19/20 14:00 96 Vapotherm 25.00 65 12/19/20 13:00 77 12/19/20 13:00 81 10 114/77 94 Vapotherm 25.00 65.00 12/19/20 12:00 95 Vapotherm 25.00 65 12/19/20 12:00 36.8 12/19/20 12:00 77 10 85/71 94 Vapotherm 25.00 65.00 12/19/20 11:49 84 111/79 I & O 12/20/20 07:00 Intake Total 2270 ml Output Total 4700 ml Balance -2430 ml Height & Weight Height: 5'9.00" Weight: 197lbs. 0.9oz. 89.007670uc; 48.55 BMI Method:Stated General Appearance: WD/WN, Mild Distress HEENT: PERRL/EOMI, Normal ENT Inspection Neck: Normal Inspection; No JVD Respiratory: No Accessory Muscle Use, Decreased Breath Sounds, Wheezing Cardiovascular: Regular Rate, Rhythm, No Edema, No Murmur Capillary Refill: Less Than 3 Seconds Gastrointestinal: non tender, soft Extremity: Normal Inspection, No Pedal Edema Neurologic/Psychiatric: Other (Generalized weakness, arousable to voice. Answers questions with one-word answers) Skin: Normal Color, Warm/Dry Results Lab Laboratory Tests 12/18/20 14:50 12/18/20 17:07 12/18/20 21:20 12/19/20 02:10 12/19/20 13:20 12/19/20 21:00 12/20/20 04:45 Assessment/Plan Assessment/Plan (Tele-ICU Physician , Progress Note ) Available chart/ vitals / labs / Images reviewed Video assessment done using teleICU camera, rest of exam as per RN Discussed with RN , EXAM PER RN Events overnight : ON DANYELLE for hypotension ,Vapotherm 25L 65% Afebrile I/O = neg 2100 Drips: Pressors: danyelle 50 hemodynamically stable Consultants: Hospital course: 12/18- to ICU - hypoNatremia 114, AMS 12/19- DANYELLE , Vapotherm 25L 65% 12/20 - dnayelle 50 , Vapother 20l 65 % , refusing BIPAP A/P Hyponatremia - 114 on admission ( to 121 in 24 h ) , confusion , no Sx reported (RECURRENT newly presented same in July 2020 , improved to 137 on d/c follow, improved MAYRA - new , ? dehydration , rhabdo- mild - cont IVF , Cr improving , might need US latter - UO > 3L since admission - follow closely Shock - ? septic ( doubt cardiogenic - neg trop , ECHO ef 45% - danyelle started 12/19- weaning Encephalopathy - probaly due to Na - as per bedside - improving , follow Acute ( mild ) on Chronic resp failure on admission - hypercarbic mildly , hypoxic - on 10 L -12/19 - Vapotherm 25L 65 % - fluid balance negative with elev BNP - will cont resp meds +steroids , IS - can not diurese with being on pressors - follow COPD, severe - PFT 2018 - severe obstriction, no responf to br dlator , FEV1 1.4L ( 45% ) , hyperinflation . CT chest 07/2020 - mild emphesema - chronic hypoxia on home O2 reported - will resume home meds - steroids IV SM 60 q 12 - ? chronic steroids Rhabdo - etiology not clear , no Sx reported - improving CHF , ICM , CAD - EF 30 % , BNP >200, new ECHO 12/19 - EF 45% - monitor closely I/O DM II - on steroid - monitor - as per PCP Anemia - follow Suspected UTI as per report from [place] - E coli on cx 12/18 - merrem 12/18 started , follow sens Obesity BMI 29 Chronic pain meds - fentanyl patch As per previous notes : Medical noncompliance and drug seeking behavior., History of methamphetamine use Lines : Right IJ 12/19 (Central Line Necessity Reviewed) Liang: + OG: Nutrition: npo Analgesia: Anxiety/ delirium VTE Prophylaxis: heparin Sq Stress Ulcer Prophylaxis: ppi Glycemic Control: Plans in collaboration with bedside consultants and IM MDs. Discussed with RN to reach out if any questions or concerns A total of 33 minutes of critical care time was devoted to this patient today, required to treat and/or prevent further deterioration of critical care condition ( as above) . BRANDON MENDIETA MD Dec 20, 2020 10:35
--- NOTE | 2020-12-20 15:46 | Progress Note ---
Subjective Subjective/Events-last exam Pt alert and oriented this morning, daughter at bedside and older daughter and son on speaker phone. Spent over 30 minutes in discussion this morning about current status and goals. Aylin clearly expresses today that she would want intubated and chest compressions if she coded and that she is wanting to cont inue current care. Her family are wondering about whether it will be possible for her to be discharged without hospice services, and we discussed this has been difficult in the past due to her high needs for opiates and benzodiazepines for severe anxiety and air hunger. Family notes that she has been using significantly less medication in the nursing facility and wonder if she would do well with just care home care in the nursing facility without hospice. Discussed that no decisions have to be made today, as currently we are continuing aggressive care and she is not even ready to move out of the ICU yet. Also discussed difficulty in knowing if kidney function will return to baseline, but does appear to still be headed in that direction. Aylin denies pain today and has had only two doses of 0.25 mg of ativan IV since admission, but she also was lethargic and minimally communicative for a significant portion of her early stay. Focused Exam Lactate Level 12/17/20 21:22: Lactic Acid Level 0.62 12/19/20 13:20: Lactic Acid Level 1.19 Objective Exam Last Set of Vital Signs Vital Signs Date Time Temp Pulse Resp B/P (MAP) Pulse Ox O2 Delivery O2 Flow Rate FiO2 12/20/20 15:00 76 71 132/94 Vapotherm 20.00 65.00 12/20/20 14:40 98 65 12/20/20 11:35 36.8 Capillary Refill : Less Than 3 Seconds I&O Intake and Output 12/20/20 00:00 Intake Total 1965 ml Output Total 4125 ml Balance -2160 ml Intake Oral 855 ml IV Total 1110 ml Output Urine Total 4125 ml Lungs: Other (decreased air movement bilaterally) Heart: Regular Rate Abdomen: Normal Bowel Sounds, Soft Neuro: Normal Speech Psych/Mental Status: Mental Status NL, Mood NL Results/Procedures Lab Laboratory Tests 12/19/20 15:50: Glucometer 255H 12/19/20 20:17: Glucometer 221H 12/19/20 21:00: Sodium Level 128L, Potassium Level 3.9, Chloride Level 83L, Carbon Dioxide Level 32, Anion Gap 13, Blood Urea Nitrogen 63H, Creatinine 3.06H, Estimat Glomerular Filtration Rate 16, BUN/Creatinine Ratio 21, Glucose Level 201H, Calcium Level 9.0 12/20/20 04:45: Sodium Level 131L, Potassium Level 3.8, Chloride Level 86L, Carbon Dioxide Level 31, Anion Gap 14, Blood Urea Nitrogen 61H, Creatinine 2.57#H, Estimat Glomerular Filtration Rate 19, BUN/Creatinine Ratio 24, Glucose Level 211H, Calcium Level 9.2, White Blood Count 15.6H, Red Blood Count 2.98L, Hemoglobin 8.4L, Hematocrit 26L, Mean Corpuscular Volume 87, Mean Corpuscular Hemoglobin 28, Mean Corpuscular Hemoglobin Concent 32, Red Cell Distribution Width 14.6H, Platelet Count 338, Mean Platelet Volume 9.0, Immature Granulocyte % (Auto) 2, Neutrophils (%) (Auto) 88H, Lymphocytes (%) (Auto) 5L, Monocytes (%) (Auto) 5, Eosinophils (%) (Auto) 0, Basophils (%) (Auto) 0, Neutrophils # (Auto) 13.7H, Lymphocytes # (Auto) 0.7L, Monocytes # (Auto) 0.8, Eosinophils # (Auto) 0.0, Basophils # (Auto) 0.0, Immature Granulocyte # (Auto) 0.3H, Corrected Calcium 9.5, Phosphorus Level 2.8, Magnesium Level 2.1, Total Bilirubin 0.2, Aspartate Amino Transf (AST/SGOT) 45H, Alanine Aminotransferase (ALT/SGPT) 29, Alkaline Phosphatase 57, Total Protein 6.1L, Albumin 3.6, Procalcitonin 0.04 12/20/20 10:54: Glucometer 265H Microbiology 12/18/20 MRSA Screen - Final, Complete MRSA not isolated 12/17/20 Urine Culture - Preliminary, Resulted Escherichia coli 12/17/20 Blood Culture - Preliminary, Resulted No growth Radiology CXR 12/17/20: IMPRESSION: Patchy left basilar infiltrate and mild central pulmonary venous congestion. Assessment/Plan Assessment/Plan (1) Acute kidney injury Status: Acute Assessment & Plan: Suspect acute hypovolemic/prerenal, however creatinine was mildly elevated in July, so may have been developing over some time. NS @ 200 mls/hr, following serial BMP, minimal improvement in creatinine, but trending down. No hyperkalemia. 12/19- creatinine improved to 3.61, but rate of improve has slowed. NS decreased to 100 mls/hr, continuing to follow. 12/20- creatinine continuing to trend down, lasix today per Cardiology, will still continue NS for now due to renal dysfunction and hyponatremia, but anticipate d/c soon. (2) COPD exacerbation Status: Acute Assessment & Plan: Solumedrol given in ER, respiratory support as needed, supplemental oxygen dependent at baseline. ABX started for UTI. 12/19- titrate steroid dose down 12/20- still on vapotherm at 65% FiO2, reports baseline supplemental oxygen use is 2-3 lpm (3) Acidosis Status: Resolved Assessment & Plan: Respiratory and metabolic with elevated PCO2 and high AG on admit (4) Diarrhea Status: Resolved Assessment & Plan: No stool since admit, if diarrhea persists, check c diff, stool culture. Qualifiers: Qualified Codes: R19.7 - Diarrhea, unspecified (5) Anemia Status: Chronic Assessment & Plan: Stable since July, suspect anemia of chronic disease, check iron studies. 12/19- ferritin high, iron normal, TIBC low normal consistent with chronic dise ase. (6) Obesity Status: Chronic (7) Cardiomyopathy Status: Chronic (8) History of congestive heart failure Status: Chronic Assessment & Plan: BNP and troponin normal/negative on admit. Monitor closely given high rates of IVF for her hypovolemia/hyponatremia. 12/19- BNP increased to 300s, hypotensive this morning, check echo and consult Cardiology. Resume carvedilol, holding sacubatril/losartan and diuretics d/t ARF. 12/20- Appreciate Cardiology recommendations. Echo with EF 45-50%, resuming lasix. (9) Chronic pain Status: Chronic Assessment & Plan: Resume home pain medications (10) Anxiety Status: Chronic Assessment & Plan: Ativan prn (11) Urinary tract infection Status: Acute Assessment & Plan: History of multidrug resistant infection. Started on meropenem based on prior cultures. Does not appear to have sepsis- no elevated WBC, afebrile, no tachycardia, LA normal. Meropenem day 3 Qualifiers: Qualified Codes: N30.01 - Acute cystitis with hematuria (12) Hypoglycemia Status: Resolved (13) Hyponatremia Status: Acute Assessment & Plan: Suspect hypovolemic, however, she does also have history of CHF and risk for hypervolemia. Slightly trending up with NS, may need hypertonic saline, continue to follow serial levels and adjust fluids as needed. 12/19 improving, Na 125 this am, IV rate decreased 12/20 continued improvement, continue current treatments (14) Altered mental status Status: Resolved Assessment & Plan: Suspect secondary to hyponatremia and acute renal failure, improved somewhat this morning. 12/19- coherent and able to discuss her illness today Qualifiers: Qualified Codes: R41.82 - Altered mental status, unspecified (15) Elevated creatine kinase Status: Acute Assessment & Plan: Uncertain etiology, monitor with fluid resuscitation, improving. (16) Hypotension Status: Acute Assessment & Plan: 12/19 Had initial hypotension improved with fluid, but recurred overnight, started on phenylephrine drip per ICU consult physician Qualifiers: Qualified Codes: I95.89 - Other hypotension; E86.1 - Hypovolemia (17) Hospice care patient Status: Resolved Assessment & Plan: Pt has been on hospice, revoked status for admission. When asked if she would want intubated or transferred for dialysis if needed, she stated she does want any aggressive care that would be needed. 12/19 today patient is more alert, and now says she wants to stop everything and go home, however this is inconsistent with her previous statements, and we did discuss that with her current illness, stopping everything may lead to rapid decompensation. I asked her if she had discussed with her family and she had not, and I asked if I could discuss with her daughter, Aylin agreed that would be good and she would wait to make changes based on further discussion. On discussion with [place], she did state patient has previously not expressed this kind of wish in spite of being on hospice (and historically, pt has been readmitted and revoked hospice other times in the past as well), so she would like to talk to Aylin and the other family and get some more information. Will proceed with heart eval and Cardiology consult to see where heart function is currently to assist in decision making as well. 12/20 patient clearly expressing desire to continue aggressive care and to be full code. 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 (18) Acute on chronic respiratory failure Status: Acute Assessment & Plan: Flu A and B and Sars-CoV-2 neg. CXR with possible patchy infiltrate, but remainder of findings not consistent with pneumonia. BNP normal on admit, lower suspicion for significant pulmonary edema. Suspect secondary to COPD exacerbation. Qualifiers: Qualified Codes: J96.21 - Acute and chronic respiratory failure with hypo sheela; J96.22 - Acute and chronic respiratory failure with hypercapnia (19) DVT prophylaxis Status: Acute Assessment & Plan: Heparin JAISON NORWOOD MD Dec 20, 2020 15:46
[2020-12-20] MEDS: OLANZapine 5 MG (ZyPREXA) TAB PO SCH (20:24)
[2020-12-21] MEDS: MEROPENEM 500 MG/SWFI 10 ML IV PUSH IV SCH ×4 (00:27→12:08)
[2020-12-21] MEDS: LORazepam INJ 2 MG/ML (ATIVAN) VIAL IVP PRN ×6 (01:05→16:29)
[2020-12-21] MEDS: 1/2 NS IV SOLUTION 1,000 ML IV SCH (05:08)
[2020-12-21 05:37] LABS: BASOPHILS % (AUTO) 0 % (0-10); EOSINOPHILS % (AUTO) 0 % (0-10); HEMATOCRIT 25 % (35-52); HEMOGLOBIN 8.3 g/dL (11.5-16.0); LYMPHOCYTES # (AUTO) 0.9 10^3/uL (1.0-4.0); LYMPHOCYTES % (AUTO) 8 % (12-44); MEAN CORPUSCULAR HEMOGLOBIN 29 pg (25-34); MEAN CORPUSCULAR HGB CONC 33 g/dL (32-36); MEAN CORPUSCULAR VOLUME 89 fL (80-99); MEAN PLATELET VOLUME 9.5 fL (9.0-12.2); MONOCYTES # (AUTO) 0.5 10^3/uL (0.0-1.0); MONOCYTES % (AUTO) 4 % (0-12); NEUTROPHILS # (AUTO) 8.7 10^3/uL (1.8-7.8); NEUTROPHILS % (AUTO) 83 % (42-75); PLATELET COUNT 290 10^3/uL (130-400); WHITE BLOOD COUNT 10.5 10^3/uL (4.3-11.0)
[2020-12-21 05:56] LABS: ALBUMIN 3.5 GM/DL (3.2-4.5); BILIRUBIN,TOTAL 0.2 MG/DL (0.1-1.0); CALCIUM 9.3 MG/DL (8.5-10.1); CREATININE SERUM 2.02 MG/DL (0.60-1.30); MAGNESIUM 1.8 MG/DL (1.6-2.4); PHOSPHORUS 2.4 MG/DL (2.3-4.7); POTASSIUM 3.8 MMOL/L (3.6-5.0)
[2020-12-21] MEDS: inSUlin ASPART (NovoLOG) 1 UNIT/0.01 ML (CHARGE PER UNIT) SC SCH ×4 (06:14→20:40)
[2020-12-21] MEDS: MAGNESIUM 1 GM/100 ML IVPB 100 ML IV SCH (06:14)
[2020-12-21] MEDS: KCL 20 MEQ TAB (K-DUR) PO SCH (06:14)
[2020-12-21] MEDS: POTASSIUM CL 10MEQ/50ML IVPB 50 ML IV SCH (06:14)
--- NOTE | 2020-12-21 07:42 | Tele-ICU Progress Note ---
Subjective Date Seen by a Provider: Dec 21, 2020 Time Seen by a Provider: 09:49 Subjective/Events-last exam Admitted for low Na, now 137, Cr 2.02, coming down was 2.57 Not on pressors, on IV meropenem ESBL E Coli in urine but is sensitive to meropenem Had rhabdo last CK 1800 vapotherm 15 lpm @ 45%, SpO2 93%, not working hard to breathe, mental status good A and O x 3 eating, gooe appetite Sepsis Event Evaluation Height, Weight, BMI Height: 5'9.00" Weight: 197lbs. 0.9oz. 89.420125bm; 48.55 BMI Method:Stated Focused Exam Lactate Level 12/19/20 13:20: Lactic Acid Level 1.19 Exam Exam Patient acknowledged, consented, and participated in this virtual visit which was conducted using real time audio/video Vital Signs Date Time Temp Pulse Resp B/P (MAP) Pulse Ox O2 Delivery O2 Flow Rate FiO2 12/21/20 07:00 84 11 108/73 95 Vapotherm 20.00 50.00 12/21/20 07:00 81 12/21/20 05:56 88 11 104/69 Vapotherm 20.00 50.00 12/21/20 05:00 90 12 112/69 Vapotherm 20.00 50.00 12/21/20 04:30 36.4 Vapotherm 20.00 50.00 12/21/20 04:00 80 13 112/76 Vapotherm 20.00 55.00 12/21/20 04:00 95 Vapotherm 20.00 50 12/21/20 03:00 85 12 107/63 Vapotherm 20.00 55.00 12/21/20 02:34 94 Vapotherm 20.00 50 12/21/20 02:00 85 14 96/53 Vapotherm 20.00 55.00 12/21/20 01:00 90 14 120/76 Vapotherm 20.00 55.00 12/21/20 01:00 87 12/21/20 00:00 95 Vapotherm 20.00 55 12/21/20 00:00 82 13 107/72 Vapotherm 20.00 55.00 12/20/20 23:19 36.4 12/20/20 23:00 79 14 114/72 Vapotherm 20.00 55.00 12/20/20 22:00 90 13 139/78 Vapotherm 20.00 55.00 12/20/20 21:00 89 14 112/79 Vapotherm 20.00 55.00 12/20/20 20:59 Vapotherm 20.00 55.00 12/20/20 20:55 98 Vapotherm 20.00 65 12/20/20 20:23 36.4 Vapotherm 20.00 65.00 12/20/20 20:00 95 Vapotherm 20.00 65 12/20/20 20:00 82 12 129/92 Vapotherm 20.00 65.00 12/20/20 19:00 91 13 93/62 Vapotherm 20.00 65.00 12/20/20 19:00 89 12/20/20 18:00 86 11 131/82 Vapotherm 20.00 65.00 12/20/20 17:00 86 28 128/102 Vapotherm 20.00 65.00 12/20/20 16:00 87 15 115/78 96 Vapotherm 20.00 65.00 12/20/20 15:46 97 Vapotherm 20.00 65 12/20/20 15:00 76 71 132/94 Vapotherm 20.00 65.00 12/20/20 14:40 98 Vapotherm 20.00 65 12/20/20 14:00 77 26 140/87 Vapotherm 20.00 65.00 12/20/20 13:19 87 18 144/105 Vapotherm 20.00 65.00 12/20/20 13:08 92 12/20/20 12:23 97 Vapotherm 20.00 65 12/20/20 12:00 78 9 123/86 Vapotherm 20.00 65.00 12/20/20 11:35 36.8 12/20/20 11:00 82 9 123/70 Vapotherm 20.00 65.00 12/20/20 10:45 95 Vapotherm 20.00 65 12/20/20 10:00 76 11 122/78 Vapotherm 20.00 65.00 12/20/20 09:00 77 11 121/74 Vapotherm 20.00 65.00 12/20/20 08:24 Vapotherm 20.00 65.00 12/20/20 08:00 75 9 130/84 94 Vapotherm 25.00 65.00 12/20/20 08:00 97 Vapotherm 20.00 65 12/20/20 07:45 36.6 I & O 12/21/20 07:00 Intake Total 450 ml Output Total 5375 ml Balance -4925 ml Height & Weight Height: 5'9.00" Weight: 197lbs. 0.9oz. 89.123069lf; 48.55 BMI Method:Stated General Appearance: No Apparent Distress, WD/WN, Mild Distress HEENT: PERRL/EOMI, Normal ENT Inspection Neck: Normal Inspection; No JVD Respiratory: No Accessory Muscle Use, Decreased Breath Sounds (soft wheezing), Wheezing Cardiovascular: Regular Rate, Rhythm, No Edema, No Murmur Capillary Refill: Less Than 3 Seconds Gastrointestinal: normal bowel sounds, non tender, soft Extremity: Normal Inspection, No Pedal Edema Neurologic/Psychiatric: Other (Generalized weakness, arousable to voice. Answers questions with one-word answers) Skin: Normal Color, Warm/Dry Results Lab Laboratory Tests 12/19/20 13:20 12/19/20 21:00 12/20/20 04:45 12/21/20 04:40 Assessment/Plan Assessment/Plan A/P Hyponatremia - 114 on admission now 137( to 121 in 24 h ) , confusion much better , no Sx reported (RECURRENT newly presented same in July 2020 , improved to 137 on d/c follow, improved MAYRA - new , ? dehydration , rhabdo- mild - cont IVF , Cr improving , might need US latter - UO > 3L since admission - follow closely Shock - ? septic ( doubt cardiogenic - neg trop , ECHO ef 45% - lance started 12/19- weaning Encephalopathy - probaly due to Na - as per bedside - improving , follow Acute ( mild ) on Chronic resp failure on admission - hypercarbic mildly , hypoxic - on 10 L -12/19 - Vapotherm 15L 45 % - fluid balance negative with elev BNP - will cont resp meds +steroids , IS - can not diurese with being on pressors - follow COPD, severe - PFT 2018 - severe obstruction, no response to bronchodilators , FEV1 1.4L ( 45% ) , hyperinflation . CT chest 07/2020 - mild emphysema - chronic hypoxia on home O2 reported - will resume home meds - steroids IV SM 60 q 12 - ? chronic steroids Rhabdo - etiology not clear , no Sx reported - improving CHF , ICM , CAD - EF 30 % , BNP >200, new ECHO 12/19 - EF 45% - monitor closely I/O DM II - on steroid - monitor glucose has been 150-200 - as per PCP Anemia - follow Suspected UTI as per report from [place] - E coli on cx 12/18 ESBL - merrem 12/18 started , sens to IV meropnem Obesity BMI 29 Chronic pain meds - fentanyl patch As per previous notes : Medical noncompliance and drug seeking behavior., History of methamphetamine use Lines : Right IJ 12/19 (Central Line Necessity Reviewed) Liang: + OG: Nutrition: npo Analgesia: Anxiety/ delirium VTE Prophylaxis: heparin Sq Stress Ulcer Prophylaxis: ppi Glycemic Control: From my point of view can go to floor TOMEKA PETER MD Dec 21, 2020 07:42
[2020-12-21] MEDS: NS IV 1000 ML 1,000 ML IV SCH ×2 (07:44→16:29)
[2020-12-21] MEDS: PANTOPRAZOLE 40 MG (PROTONIX) VIAL IV SCH (09:05)
[2020-12-21] MEDS: FLUoxetine HCL 20 MG (PROzac) CAP PO SCH (09:05)
[2020-12-21] MEDS: ASPIRIN E.C. 81 MG (ECOTRIN) TAB PO SCH (09:06)
--- NOTE | 2020-12-21 09:52 | Progress Note ---
Subjective Subjective/Events-last exam States she is feeling a little better. Weaned off phenylephrine yesterday afternoon. Weaned FiO2 down to 45% this am. She would like to have her catheter removed. Focused Exam Lactate Level 12/19/20 13:20: Lactic Acid Level 1.19 Objective Exam Last Set of Vital Signs Vital Signs Date Time Temp Pulse Resp B/P (MAP) Pulse Ox O2 Delivery O2 Flow Rate FiO2 12/21/20 09:00 86 10 112/69 93 Vapotherm 20.00 50.00 12/21/20 07:53 45 12/21/20 04:30 36.4 Capillary Refill : Less Than 3 Seconds I&O Intake and Output 12/21/20 00:00 Intake Total 855 ml Output Total 5900 ml Balance -5045 ml Intake Oral 845 ml IV Total 10 ml Output Urine Total 5900 ml # Bowel Movements 1 General: Alert, Oriented X3, No Acute Distress Lungs: Other (expiratory wheezing diffusely) Heart: Regular Rate, No Murmurs Extremities: No Edema Neuro: Normal Speech Psych/Mental Status: Mood NL Results/Procedures Lab Laboratory Tests 12/20/20 10:54: Glucometer 265H 12/20/20 17:19: Glucometer 198H 12/20/20 20:31: Glucometer 201H 12/21/20 04:40: White Blood Count 10.5, Red Blood Count 2.84L, Hemoglobin 8.3L, Hematocrit 25L, Mean Corpuscular Volume 89, Mean Corpuscular Hemoglobin 29, Mean Corpuscular Hemoglobin Concent 33, Red Cell Distribution Width 14.6H, Platelet Count 290, Mean Platelet Volume 9.5, Immature Granulocyte % (Auto) 4, Neutrophils (%) (Auto) 83H, Lymphocytes (%) (Auto) 8L, Monocytes (%) (Auto) 4, Eosinophils (%) (Auto) 0, Basophils (%) (Auto) 0, Neutrophils # (Auto) 8.7H, Lymphocytes # (Auto) 0.9L, Monocytes # (Auto) 0.5, Eosinophils # (Auto) 0.0, Basophils # (Auto) 0.0, Immature Granulocyte # (Auto) 0.4H, Sodium Level 137, Potassium Level 3.8, Chloride Level 91L, Carbon Dioxide Level 34H, Anion Gap 12, Blood Urea Nitrogen 53H, Creatinine 2.02H, Estimat Glomerular Filtration Rate 25, BUN/Creatinine Ratio 26, Glucose Level 176H, Calcium Level 9.3, Corrected Calcium 9.7, Phosphorus Level 2.4, Magnesium Level 1.8, Total Bilirubin 0.2, Aspartate Amino Transf (AST/SGOT) 34, Alanine Aminotransferase (ALT/SGPT) 32, Alkaline Phosphatase 53, Total Protein 6.0L, Albumin 3.5 Microbiology 12/18/20 MRSA Screen - Final, Complete MRSA not isolated 12/17/20 Urine Culture - Preliminary, Resulted Escherichia coli 12/17/20 Blood Culture - Preliminary, Resulted No growth Radiology CXR 12/17/20: IMPRESSION: Patchy left basilar infiltrate and mild central pulmonary venous congestion. Assessment/Plan Assessment/Plan (1) Acute kidney injury Status: Acute Assessment & Plan: Suspect acute hypovolemic/prerenal, however creatinine was mildly elevated in July, so may have been developing over some time. NS @ 200 mls/hr, following serial BMP, minimal improvement in creatinine, but trending down. No hyperkalemia. 12/19- creatinine improved to 3.61, but rate of improve has slowed. NS decreased to 100 mls/hr, continuing to follow. 12/20- creatinine continuing to trend down, lasix today per Cardiology, will still continue NS for now due to renal dysfunction and hyponatremia, but anticipate d/c soon. 12/21- continued improvement (2) COPD exacerbation Status: Acute Assessment & Plan: Solumedrol given in ER, respiratory support as needed, supplemental oxygen dependent at baseline. ABX started for UTI. 12/19- titrate steroid dose down 12/20- still on vapotherm at 65% FiO2, reports baseline supplemental oxygen use is 2-3 lpm 12/21 able to titrate FiO2, continue to wean as tolerated (3) Acidosis Status: Resolved Assessment & Plan: Respiratory and metabolic with elevated PCO2 and high AG on admit (4) Diarrhea Status: Resolved Assessment & Plan: No stool since admit, if diarrhea persists, check c diff, stool culture. Qualifiers: Qualified Codes: R19.7 - Diarrhea, unspecified (5) Anemia Status: Chronic Assessment & Plan: Stable since July, suspect anemia of chronic disease, check iron studies. 12/19- ferritin high, iron normal, TIBC low normal consistent with chronic disease. (6) Obesity Status: Chronic (7) Cardiomyopathy Status: Chronic (8) History of congestive heart failure Status: Chronic Assessment & Plan: BNP and troponin normal/negative on admit. Monitor closely given high rates of IVF for her hypovolemia/hyponatremia. 12/19- BNP increased to 300s, hypotensive this morning, check echo and consult Cardiology. Resume carvedilol, holding sacubatril/losartan and diuretics d/t ARF. 12/20- Appreciate Cardiology recommendations. Echo with EF 45-50%, resuming lasix. 12/21- resume partial home lasix dose (9) Chronic pain Status: Chronic Assessment & Plan: Resume home pain medications (10) Anxiety Status: Chronic Assessment & Plan: Ativan prn (11) Urinary tract infection Status: Acute Assessment & Plan: History of multidrug resistant infection. Started on meropenem based on prior cultures. Does not appear to have sepsis- no elevated WBC, afebrile, no tachycardia, LA normal. Meropenem day 3 Qualifiers: Qualified Codes: N30.01 - Acute cystitis with hematuria (12) Hypoglycemia Status: Resolved (13) Hyponatremia Status: Resolved Assessment & Plan: Suspect hypovolemic, however, she does also have history of CHF and risk for hypervolemia. Slightly trending up with NS, may need hypertonic saline, continue to follow serial levels and adjust fluids as needed. 12/19 improving, Na 125 this am, IV rate decreased 12/20 continued improvement, continue current treatments (14) Altered mental status Status: Resolved Assessment & Plan: Suspect secondary to hyponatremia and acute renal failure, improved somewhat this morning. 12/19- coherent and able to discuss her illness today Qualifiers: Qualified Codes: R41.82 - Altered mental status, unspecified (15) Elevated creatine kinase Status: Acute Assessment & Plan: Uncertain etiology, monitor with fluid resuscitation, improving. (16) Hypotension Status: Resolved Assessment & Plan: 12/19 Had initial hypotension improved with fluid, but recurred overnight, started on phenylephrine drip per ICU consult physician 12/21 off phenylephrine drip since yesterday, transfer to floor Qualifiers: Qualified Codes: I95.89 - Other hypotension; E86.1 - Hypovolemia (17) Hospice care patient Status: Resolved Assessment & Plan: Pt has been on hospice, revoked status for admission. When asked if she would want intubated or transferred for dialysis if needed, she stated she does want any aggressive care that would be needed. 12/19 today patient is more alert, and now says she wants to stop everything and go home, however this is inconsistent with her previous statements, and we did discuss that with her current illness, stopping everything may lead to rapid decompensation. I asked her if she had discussed with her family and she had not, and I asked if I could discuss with her daughter, Aylin agreed that would be good and she would wait to make changes based on further discussion. On discussion with [place], she did state patient has previously not expressed this kind of wish in spite of being on hospice (and historically, pt has been readmitted and revoked hospice other times in the past as well), so she would like to talk to Aylin and the other family and get some more information. Will proceed with heart eval and Cardiology consult to see where heart function is currently to assist in decision making as well. 12/20 patient clearly expressing desire to continue aggressive care and to be full code. 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 (18) Acute on chronic respiratory failure Status: Acute Assessment & Plan: Flu A and B and Sars-CoV-2 neg. CXR with possible patchy infiltrate, but remainder of findings not consistent with pneumonia. BNP normal on admit, lower suspicion for significant pulmonary edema. Suspect secondary to COPD exacerbation. Qualifiers: Qualified Codes: J96.21 - Acute and chronic respiratory failure with hypoxia; J96.22 - Acute and chronic respiratory failure with hypercapnia (19) DVT prophylaxis Status: Acute Assessment & Plan: Heparin JAISON NORWOOD MD Dec 21, 2020 09:52
--- NOTE | 2020-12-21 10:14 | Cardiology Progress Note ---
Progress Note-Cardiology Events since last exam Date Seen by Provider: Dec 21, 2020 Time Seen by Provider: 10:10 Events since last exam We are following her for heart failure and coronary artery disease. Yesterday her phenylephrine was weaned to off around 1400. She states her breathing is improved but not quite back to her baseline. She denies chest discomfort, palpitations or syncope. She has some mild ankle edema. The hospitalist has ordered transfer orders out of the ICU. Certain portions of this document may have been dictated utilizing voice recognition technology. Inherent to this technology, typographical and grammatical errors may exist. As much as I am diligent to identify and correct these mistakes, some errors may remain in the document. Vitals Last set of Vitals Signs Vital Signs 12/21/20 12/21/20 12/21/20 12/21/20 07:53 11:07 12:00 12:36 Temp 36.5 Pulse 75 Resp 11 B/P (MAP) 126/84 Pulse Ox 98 O2 Delivery Nasal Cannula O2 Flow Rate 5.00 FiO2 45 Labs Labs Laboratory Tests 12/21/20 04:40 Exam Vital Signs Vital Signs Date Time Temp Pulse Resp B/P (MAP) Pulse Ox O2 Delivery O2 Flow Rate FiO2 12/21/20 12:36 75 12/21/20 12:00 11 126/84 98 Nasal Cannula 5.00 12/21/20 11:07 36.5 12/21/20 07:53 45 Physical Exam General: Alert. No acute distress. Morbidly obese. She is wearing oxygen by nasal cannula. Eye: No xanthelasma. HENT: Normocephalic. Neck: Jugular venous pressure does not appear elevated. Respiratory: Lungs have slight scattered wheezes. Respirations are non-labored. Breath sounds are equal. Symmetrical chest wall expansion. Cardiovascular: Normal rate. Regular rhythm. No murmur. No gallop. Trace bilateral pretibial edema. Gastrointestinal: Soft. Normal bowel sounds. Skin: Warm. Dry. Neurologic: Alert and oriented to person, place, time. Cranial nerves 3-11 grossly intact. Psychiatric: Cooperative. Appropriate mood & affect. Labs Laboratory Tests Test 12/20/20 17:19 12/20/20 20:31 12/21/20 04:40 12/21/20 10:27 Range/Units Glucometer 198 H 201 H 150 H 70-110 MG/DL White Blood Count 10.5 4.3-11.0 10^3/uL Red Blood Count 2.84 L 3.80-5.11 10^6/uL Hemoglobin 8.3 L 11.5-16.0 g/dL Hematocrit 25 L 35-52 % Mean Corpuscular Volume 89 80-99 fL Mean Corpuscular Hemoglobin 29 25-34 pg Mean Corpuscular Hemoglobin Concent 33 32-36 g/dL Red Cell Distribution Width 14.6 H 10.0-14.5 % Platelet Count 290 130-400 10^3/uL Mean Platelet Volume 9.5 9.0-12.2 fL Immature Granulocyte % (Auto) 4 % Neutrophils (%) (Auto) 83 H 42-75 % Lymphocytes (%) (Auto) 8 L 12-44 % Monocytes (%) (Auto) 4 0-12 % Eosinophils (%) (Auto) 0 0-10 % Basophils (%) (Auto) 0 0-10 % Neutrophils # (Auto) 8.7 H 1.8-7.8 10^3/uL Lymphocytes # (Auto) 0.9 L 1.0-4.0 10^3/uL Monocytes # (Auto) 0.5 0.0-1.0 10^3/uL Eosinophils # (Auto) 0.0 0.0-0.3 10^3/uL Basophils # (Auto) 0.0 0.0-0.1 10^3/uL Immature Granulocyte # (Auto) 0.4 H 0.0-0.1 10^3/uL Sodium Level 137 135-145 MMOL/L Potassium Level 3.8 3.6-5.0 MMOL/L Chloride Level 91 L 98-107 MMOL/L Carbon Dioxide Level 34 H 21-32 MMOL/L Anion Gap 12 5-14 MMOL/L Blood Urea Nitrogen 53 H 7-18 MG/DL Creatinine 2.02 H 0.60-1.30 MG/DL Estimat Glomerular Filtration Rate 25 BUN/Creatinine Ratio 26 Glucose Level 176 H 70-105 MG/DL Calcium Level 9.3 8.5-10.1 MG/DL Corrected Calcium 9.7 8.5-10.1 MG/DL Phosphorus Level 2.4 2.3-4.7 MG/DL Magnesium Level 1.8 1.6-2.4 MG/DL Total Bilirubin 0.2 0.1-1.0 MG/DL Aspartate Amino Transf (AST/SGOT) 34 5-34 U/L Alanine Aminotransferase (ALT/SGPT) 32 0-55 U/L Alkaline Phosphatase 53 40-136 U/L Total Protein 6.0 L 6.4-8.2 GM/DL Albumin 3.5 3.2-4.5 GM/DL Diagnosis/Problems Diagnosis/Problems (1) Acute on chronic systolic heart failure Assessment & Plan: Symptomatically she seems to be improving. Given her poor renal function as well as low blood pressures and history of bradycardia, we are very limited in what we can prescribe for guideline directed medical therapy. (2) Shock Assessment & Plan: Exact etiology unclear. This was probably not cardiogenic shock since her ejection fraction is only mildly impaired. She may have had some component of septic shock. Nevertheless, this has now resolved. (3) Cardiomyopathy Status: Chronic Assessment & Plan: This is nonischemic. Her most recent echocardiogram showed mild left ventricular systolic dysfunction. As above, due to low blood pressures as well as her chronic kidney disease, we have very limited in what we will be able to prescribe for the usual guideline directed medical therapy. (4) Coronary artery disease without angina pectoris Assessment & Plan: She had mild coronary artery disease at the time of previous cardiac catheterization. She is not having any angina. I recommend she continue on low strength aspirin. I will also start her on statin medication. Her admission medication reconciliation does not have a statin medication. (5) Sinus bradycardia Assessment & Plan: She has a history of sinus bradycardia. This limits our ability to prescribe beta-nacho. (6) Primary hypertension Assessment & Plan: Blood pressure is presently controlled with no antihypertensive medication. As above, earlier in the hospitalization she was in shock and required intravenous phenylephrine. This is now been discontinued. We will continue to monitor her blood pressures closely. (7) Mixed hyperlipidemia Assessment & Plan: She has known mild to moderate coronary artery disease. She is also diabetic. As such, her goal LDL is less than 70 mg/dL. She is well above this goal. I recommend she start on statin medication. (8) Morbid obesity Assessment & Plan: She needs to work on weight loss. If she cannot make any headway over the next 6-12 months, she may be a good candidate for bariatric surgery. (9) Electronic cigarette use Assessment & Plan: I encouraged her to stop using electronic cigarettes. THOMAS SUAZO JR, MD Dec 21, 2020 10:14
[2020-12-21] MEDS: methylPREDNISolone 125 MG (Solu-MEDROL) VIAL IVP SCH (10:28)
[2020-12-21] MEDS: RT-ALBUTEROL/IPRATROPIUM 3 ML (DUONEB) VIAL INH PRN ×2 (10:47→21:26)
[2020-12-21] MEDS: ONDANSETRON 4 MG/2 ML (SDV) Z0FRAN IVP PRN (18:09)
[2020-12-21] MEDS: FUROSEMIDE 20 MG (LASIX) TAB PO SCH (18:09)
[2020-12-21] MEDS: LORazepam 0.5 MG (ATIVAN) TABLET PO PRN (18:09)
[2020-12-21] MEDS: OLANZapine 5 MG (ZyPREXA) TAB PO SCH (20:40)
[2020-12-21] MEDS: ROSUVASTATIN 20 MG (CRESTOR) TABLET PO SCH (20:40)
[2020-12-22] MEDS: methylPREDNISolone 125 MG (Solu-MEDROL) VIAL IVP SCH ×2 (01:20→12:09)
[2020-12-22] MEDS: MEROPENEM 500 MG/SWFI 10 ML IV PUSH IV SCH ×4 (01:20→14:51)
[2020-12-22] MEDS: LORazepam 0.5 MG (ATIVAN) TABLET PO PRN ×4 (01:20→20:21)
[2020-12-22] MEDS: RT-ALBUTEROL/IPRATROPIUM 3 ML (DUONEB) VIAL INH PRN (02:15)
[2020-12-22 05:25] LABS: BASOPHILS % (AUTO) 0 % (0-10); EOSINOPHILS % (AUTO) 0 % (0-10); HEMATOCRIT 27 % (35-52); HEMOGLOBIN 8.5 g/dL (11.5-16.0); LYMPHOCYTES # (AUTO) 1.1 10^3/uL (1.0-4.0); LYMPHOCYTES % (AUTO) 9 % (12-44); MEAN CORPUSCULAR HEMOGLOBIN 28 pg (25-34); MEAN CORPUSCULAR HGB CONC 31 g/dL (32-36); MEAN CORPUSCULAR VOLUME 91 fL (80-99); MEAN PLATELET VOLUME 8.9 fL (9.0-12.2); MONOCYTES # (AUTO) 0.7 10^3/uL (0.0-1.0); MONOCYTES % (AUTO) 6 % (0-12); NEUTROPHILS # (AUTO) 9.8 10^3/uL (1.8-7.8); NEUTROPHILS % (AUTO) 83 % (42-75); PLATELET COUNT 272 10^3/uL (130-400); WHITE BLOOD COUNT 11.9 10^3/uL (4.3-11.0)
[2020-12-22 05:34] LABS: ALBUMIN 3.5 GM/DL (3.2-4.5)
[2020-12-22 05:35] LABS: CALCIUM 9.7 MG/DL (8.5-10.1)
[2020-12-22 05:37] LABS: TOTAL PROTEIN 5.9 GM/DL (6.4-8.2)
[2020-12-22 05:38] LABS: BILIRUBIN,TOTAL 0.3 MG/DL (0.1-1.0)
[2020-12-22 05:40] LABS: CREATININE SERUM 1.69 MG/DL (0.60-1.30)
[2020-12-22 05:43] LABS: MAGNESIUM 1.7 MG/DL (1.6-2.4)
[2020-12-22] MEDS: inSUlin ASPART (NovoLOG) 1 UNIT/0.01 ML (CHARGE PER UNIT) SC SCH ×4 (05:51→20:37)
[2020-12-22] MEDS: FUROSEMIDE 20 MG (LASIX) TAB PO SCH ×2 (06:30→18:28)
[2020-12-22] MEDS: PANTOPRAZOLE 40 MG (PROTONIX) VIAL IV SCH (08:42)
[2020-12-22] MEDS: ASPIRIN E.C. 81 MG (ECOTRIN) TAB PO SCH (08:42)
[2020-12-22] MEDS: FLUoxetine HCL 20 MG (PROzac) CAP PO SCH (08:42)
--- NOTE | 2020-12-22 08:51 | Tele-ICU Progress Note ---
Progress Note video rounds completed 55 y/o female admitted with hyponatremia, now resolved Na is 137 Paulino shx od drug dependence. PE: hemodynamically normal Assessment/Plan Assessment/Plan A/P Hyponatremia - 114 on admission now 137( to 121 in 24 h ) , confusion much better , no Sx reported (RECURRENT newly presented same in July 2020 , improved to 137 on d/c follow, improved MAYRA - new , ? dehydration , rhabdo- mild - cont IVF , Cr improving , might need US latter - UO > 3L since admission - follow closely Acute ( mild ) on Chronic resp failure on admission - hypercarbic mildly , hypoxic - on 10 L -12/19 - Vapotherm 15L 45 % - fluid balance negative with elev BNP - will cont resp meds +steroids , IS - can not diurese with being on pressors - follow COPD, severe - PFT 2018 - severe obstruction, no response to bronchodilators , FEV1 1.4L ( 45% ) , hyperinflation . CT chest 07/2020 - mild emphysema - chronic hypoxia on home O2 reported - will resume home meds - steroids IV SM 60 q 12 - ? chronic steroids Rhabdo - etiology not clear , no Sx reported - improving CHF , ICM , CAD - EF 30 % , BNP >200, new ECHO 12/19 - EF 45% DM II - on steroid - monitor glucose has been 150-200 Suspected UTI as per report from [place] - E coli on cx 12/18 ESBL - meropenam 12/18 start PLAN: remains on antibiocs for UTI labs stable Focused Exam Lactate Level 12/19/20 13:20: Lactic Acid Level 1.19 Height, Weight, BMI Height: 5'9.00" Weight: 197lbs. 0.9oz. [id number]; 48.55 BMI Method:Stated Labs Laboratory Tests 12/22/20 05:15 TOMEKA VALLE MD Dec 22, 2020 08:51
[2020-12-22] MEDS: fentaNYL PATCH 100 MCG (DURAGESIC) TD SCH (09:21)
[2020-12-22] MEDS: ONDANSETRON 4 MG/2 ML (SDV) Z0FRAN IVP PRN ×3 (09:22→19:57)
--- NOTE | 2020-12-22 10:24 | Cardiology Progress Note ---
Progress Note-Cardiology Events since last exam Date Seen by Provider: Dec 22, 2020 Time Seen by Provider: 10:19 Events since last exam We are following her for heart failure. She remains in the intensive care unit but has transfer orders to the medical floor. She got quite short of breath moving from the bed to the chair this morning. She is starting to improve. When I saw her, she was still sitting up in a chair. She denies chest discomfort, palpitations, or syncope. She has chronic, mild ankle edema. Certain portions of this document may have been dictated utilizing voice recognition technology. Inherent to this technology, typographical and grammatical errors may exist. As much as I am diligent to identify and correct these mistakes, some errors may remain in the document. Vitals Last set of Vitals Signs Vital Signs 12/21/20 12/22/20 07:53 08:00 Pulse 94 Resp 18 B/P (MAP) 135/83 Pulse Ox 96 O2 Delivery Nasal Cannula O2 Flow Rate 3.00 FiO2 45 Labs Labs Laboratory Tests 12/22/20 05:15 Exam Vital Signs Vital Signs Date Time Temp Pulse Resp B/P (MAP) Pulse Ox O2 Delivery O2 Flow Rate FiO2 12/22/20 08:00 94 18 135/83 96 Nasal Cannula 3.00 12/22/20 04:00 36.6 12/21/20 07:53 45 Physical Exam General: Alert. No acute distress. She appears older than her stated age. She is morbidly obese. Eye: No xanthelasma. HENT: Normocephalic. Neck: Jugular venous pressure does not appear elevated. Respiratory: Lungs are clear to auscultation but with decreased breath sounds bilaterally. Respirations are non-labored. Breath sounds are equal. Symmetrical chest wall expansion. Cardiovascular: Normal rate. Regular rhythm. No murmur. No gallop. Trace bilateral pretibial edema. Gastrointestinal: Soft. Normal bowel sounds. Skin: Warm. Dry. Neurologic: Alert and oriented to person, place, time. Cranial nerves 3-11 grossly intact. Psychiatric: Cooperative. Appropriate mood & affect. Labs Laboratory Tests Test 12/21/20 10:27 12/21/20 15:20 12/21/20 16:02 12/21/20 20:04 Range/Units Glucometer 150 H 188 H 157 H 70-110 MG/DL Troponin I < 0.028 <0.028 NG/ML Test 12/22/20 05:15 Range/Units White Blood Count 11.9 H 4.3-11.0 10^3/uL Red Blood Count 2.99 L 3.80-5.11 10^6/uL Hemoglobin 8.5 L 11.5-16.0 g/dL Hematocrit 27 L 35-52 % Mean Corpuscular Volume 91 80-99 fL Mean Corpuscular Hemoglobin 28 25-34 pg Mean Corpuscular Hemoglobin Concent 31 L 32-36 g/dL Red Cell Distribution Width 14.6 H 10.0-14.5 % Platelet Count 272 130-400 10^3/uL Mean Platelet Volume 8.9 L 9.0-12.2 fL Immature Granulocyte % (Auto) 3 % Neutrophils (%) (Auto) 83 H 42-75 % Lymphocytes (%) (Auto) 9 L 12-44 % Monocytes (%) (Auto) 6 0-12 % Eosinophils (%) (Auto) 0 0-10 % Basophils (%) (Auto) 0 0-10 % Neutrophils # (Auto) 9.8 H 1.8-7.8 10^3/uL Lymphocytes # (Auto) 1.1 1.0-4.0 10^3/uL Monocytes # (Auto) 0.7 0.0-1.0 10^3/uL Eosinophils # (Auto) 0.0 0.0-0.3 10^3/uL Basophils # (Auto) 0.0 0.0-0.1 10^3/uL Immature Granulocyte # (Auto) 0.3 H 0.0-0.1 10^3/uL Sodium Level 137 135-145 MMOL/L Potassium Level 4.0 3.6-5.0 MMOL/L Chloride Level 92 L 98-107 MMOL/L Carbon Dioxide Level 33 H 21-32 MMOL/L Anion Gap 12 5-14 MMOL/L Blood Urea Nitrogen 49 H 7-18 MG/DL Creatinine 1.69 H 0.60-1.30 MG/DL Estimat Glomerular Filtration Rate 31 BUN/Creatinine Ratio 29 Glucose Level 160 H 70-105 MG/DL Calcium Level 9.7 8.5-10.1 MG/DL Corrected Calcium 10.1 8.5-10.1 MG/DL Magnesium Level 1.7 1.6-2.4 MG/DL Total Bilirubin 0.3 0.1-1.0 MG/DL Aspartate Amino Transf (AST/SGOT) 29 5-34 U/L Alanine Aminotransferase (ALT/SGPT) 31 0-55 U/L Alkaline Phosphatase 52 40-136 U/L Total Protein 5.9 L 6.4-8.2 GM/DL Albumin 3.5 3.2-4.5 GM/DL Diagnosis/Problems Diagnosis/Problems (1) Acute on chronic systolic heart failure Assessment & Plan: She slowly she seems to be improving. Given her poor renal function as well as low blood pressures and history of bradycardia, we are very limited in what we can prescribe for guideline directed medical therapy. She was taking metolazone at home in addition to furosemide and this may have contributed to the acute decline in her renal function. When she is discharged, we may want to consider treating her with loop diuretic alone. She may benefit from changing furosemide over to bumetanide or torsemide for better absorption. (2) Cardiomyopathy Status: Chronic Assessment & Plan: This is nonischemic. Her most recent echocardiogram showed mild left ventricular systolic dysfunction. As above, due to low blood pressures as well as her chronic kidney disease, we have very limited in what we will be able to prescribe for the usual guideline directed medical therapy. Her blood pressure and renal function are actually starting to improve. We may be able to consider adding long-acting nitrates and spironolactone. (3) Coronary artery disease without angina pectoris Assessment & Plan: She had mild coronary artery disease at the time of previous cardiac catheterization. She is not having any angina. I recommend she continue on low strength aspirin. I will also start her on statin medication. Her admission medication reconciliation does not have a statin medication. (4) Sinus bradycardia Assessment & Plan: She has a history of sinus bradycardia. This limits our ability to prescribe beta-nacho. However, her heart rates are starting to improve. She was on carvedilol at home. If her heart rates remain good, I may restart low-dose carvedilol. (5) Shock Assessment & Plan: Exact etiology unclear. This was probably not cardiogenic shock since her ejection fraction is only mildly impaired. She may have had some component of septic shock. Nevertheless, this has now resolved. (6) Primary hypertension Assessment & Plan: Blood pressure is presently controlled with no antihypertensive medication. As above, earlier in the hospitalization she was in shock and required intravenous phenylephrine. This is now been discontinued. We will continue to monitor her blood pressures closely. As above, as her heart rates and blood pressure trend upwards, we may be able to resume low-dose beta-nacho. (7) Mixed hyperlipidemia Assessment & Plan: She has known mild to moderate coronary artery disease. She is also diabetic. As such, her goal LDL is less than 70 mg/dL. She is well above this goal. I started her on rosuvastatin 20 mg once a day on 12/21. This should be continued at the time of discharge. (8) Anemia Status: Chronic Assessment & Plan: Her hemoglobin is gradually trending downwards. This will need to be monitored. Etiology of the anemia is unclear. (9) Morbid obesity Assessment & Plan: She needs to work on weight loss. If she cannot make any headway over the next 6-12 months, she may be a good candidate for bariatric surgery. (10) Electronic cigarette use Assessment & Plan: I again encouraged her to stop using electronic cigarettes. THOMAS SUAZO JR, MD Dec 22, 2020 10:24
--- NOTE | 2020-12-22 10:25 | Progress Note - Hospitalist ---
Subjective HPI/CC On Admission Date Seen by Provider: Dec 22, 2020 Time Seen by Provider: 11:00 Subjective/Events-last exam Patient wants to go back to [facility] and rehab Tried to contemplate that but son had lengthy conversation with me and told me they are in the midst of changing her to different hospice companies and could not be discharged today I tried to tell patient because of ESBL UTI she remains on meropenem Patient has a very flat affect and overall significant psychosocial issues Review of Systems General: Fatigue, Malaise Focused Exam Lactate Level Objective Exam Vital Signs Vital Signs Date Time Temp Pulse Resp B/P (MAP) Pulse Ox O2 Delivery O2 Flow Rate FiO2 12/23/20 04:00 36.8 70 20 118/80 95 Nasal Cannula 4.00 12/21/20 07:53 45 Capillary Refill : Less Than 3 Seconds General Appearance: No Apparent Distress, WD/WN, Chronically ill, Obese Respiratory: No Accessory Muscle Use, No Respiratory Distress Cardiovascular: Regular Rate, Rhythm Neurologic/Psychiatric: Alert, Oriented x3, Depressed Affect Results/Procedures Lab Laboratory Tests 12/23/20 04:50 Patient resulted labs reviewed. Assessment/Plan Assessment and Plan Assess & Plan/Chief Complaint Assessment: (1) Acute kidney injury Status: Acute Assessment & Plan: Suspect acute hypovolemic/prerenal, however creatinine was mildly elevated in July, so may have been developing over some time. NS @ 200 mls/hr, following serial BMP, minimal improvement in creatinine, but trending down. No hyperkalemia. 12/19- creatinine improved to 3.61, but rate of improve has slowed. NS decreased to 100 mls/hr, continuing to follow. 12/20- creatinine continuing to trend down, lasix today per Cardiology, will still continue NS for now due to renal dysfunction and hyponatremia, but anticipate d/c soon. 12/21creatinine improved at 1.6 (2) COPD exacerbation Status: Acute Assessment & Plan: Solumedrol given in ER, respiratory support as needed, supplemental oxygen dependent at baseline. ABX started for UTI. 12/19- titrate steroid dose down 12/20- still on vapotherm at 65% FiO2, reports baseline supplemental oxygen use is 2-3 lpm 10/15now on nasal cannula (3) Acidosis Status: Resolved Assessment & Plan: Respiratory and metabolic with elevated PCO2 and high AG on admit (4) Diarrhea Status: Resolved Assessment & Plan: No stool since admit, if diarrhea persists, check c diff, stool culture. Qualifiers: Qualified Codes: R19.7 - Diarrhea, unspecified (5) Anemia Status: Chronic Assessment & Plan: Stable since July, suspect anemia of chronic disease, check iron studies. 12/19- ferritin high, iron normal, TIBC low normal consistent with chronic disease. (6) Obesity Status: Chronic (7) Cardiomyopathy Status: Chronic (8) History of congestive heart failure Status: Chronic Assessment & Plan: BNP and troponin normal/negative on admit. Monitor closely given high rates of IVF for her hypovolemia/hyponatremia. 12/19- BNP increased to 300s, hypotensive this morning, check echo and consult Cardiology. Resume carvedilol, holding sacubatril/losartan and diuretics d/t ARF. 12/20- Appreciate Cardiology recommendations. Echo with EF 45-50%, resuming lasix. (9) Chronic pain Status: Chronic Assessment & Plan: Resume home pain medications (10) Anxiety Status: Chronic Assessment & Plan: Ativan prn (11) Urinary tract infection Status: Acute Assessment & Plan: History of multidrug resistant infection. Started on meropenem based on prior cultures. Does not appear to have sepsis- no elevated WBC, afebrile, no tachycardia, LA normal. Meropenem day 3 Qualifiers: Qualified Codes: N30.01 - Acute cystitis with hematuria (12) Hypoglycemia Status: Resolved (13) Hyponatremia Status: Acute Assessment & Plan: Suspect hypovolemic, however, she does also have history of CHF and risk for hypervolemia. Slightly trending up with NS, may need hypertonic saline, continue to follow serial levels and adjust fluids as needed. 12/19 improving, Na 125 this am, IV rate decreased 12/20 continued improvement, continue current treatments (14) Altered mental status Status: Resolved Assessment & Plan: Suspect secondary to hyponatremia and acute renal failure, improved somewhat this morning. 12/19- coherent and able to discuss her illness today Qualifiers: Qualified Codes: R41.82 - Altered mental status, unspecified (15) Elevated creatine kinase Status: Acute Assessment & Plan: Uncertain etiology, monitor with fluid resuscitation, improving. (16) Hypotension Status: Acute Assessment & Plan: 12/19 Had initial hypotension improved with fluid, but recurred overnight, started on phenylephrine drip per ICU consult physician Qualifiers: Qualified Codes: I95.89 - Other hypotension; E86.1 - Hypovolemia (17) Hospice care patient Status: Resolved Assessment & Plan: Pt has been on hospice, revoked status for admission. When asked if she would want intubated or transferred for dialysis if needed, she stated she does want any aggressive care that would be needed. 12/19 today patient is more alert, and now says she wants to stop everything and go home, however this is inconsistent with her previous statements, and we did discuss that with her current illness, stopping everything may lead to rapid decompensation. I asked her if she had discussed with her family and she had not, and I asked if I could discuss with her daughter, Aylin agreed that would be good and she would wait to make changes based on further discussion. On discussion with [place], she did state patient has previously not expressed this kind of wish in spite of being on hospice (and historically, pt has been readmitted and revoked hospice other times in the past as well), so she would like to talk to Aylin and the other family and get some more information. Will proceed with heart eval and Cardiology consult to see where heart function is currently to assist in decision making as well. 12/20 patient clearly expressing desire to continue aggressive care and to be full code. Will re-evaluate fdc plans as course progresses. (18) Acute on chronic respiratory failure Status: Acute Assessment & Plan: Flu A and B and Sars-CoV-2 neg. CXR with possible patchy infiltrate, but remainder of findings not consistent with pneumonia. BNP normal on admit, lower suspicion for significant pulmonary edema. Suspect secondary to COPD exacerbation. Qualifiers: Qualified Codes: J96.21 - Acute and chronic respiratory failure with hypoxia; J96.22 - Acute and chronic respiratory failure with hypercapnia (19) DVT prophylaxis Status: Acute Assessment & Plan: Heparin Plan: Transfer to 4th floor Supportive care Monitor creatinine Meropenem UTI treatment RODY ALDANA DO Dec 22, 2020 10:25
[2020-12-22] MEDS: OLANZapine 5 MG (ZyPREXA) TAB PO SCH (20:00)
[2020-12-22] MEDS: ROSUVASTATIN 20 MG (CRESTOR) TABLET PO SCH (20:00)
[2020-12-22] MEDS ORDERED: ACETAMINOPHEN 325 MG TABLET ONE (21:16)
[2020-12-23] MEDS: methylPREDNISolone 125 MG (Solu-MEDROL) VIAL IVP SCH ×3 (00:52→23:51)
[2020-12-23] MEDS: MEROPENEM 500 MG/SWFI 10 ML IV PUSH IV SCH ×2 (00:56)
[2020-12-23 04:57] LABS: BASOPHILS % (AUTO) 0 % (0-10); EOSINOPHILS % (AUTO) 0 % (0-10); HEMATOCRIT 27 % (35-52); HEMOGLOBIN 8.5 g/dL (11.5-16.0); LYMPHOCYTES # (AUTO) 1.3 10^3/uL (1.0-4.0); LYMPHOCYTES % (AUTO) 11 % (12-44); MEAN CORPUSCULAR HEMOGLOBIN 29 pg (25-34); MEAN CORPUSCULAR HGB CONC 32 g/dL (32-36); MEAN CORPUSCULAR VOLUME 92 fL (80-99); MEAN PLATELET VOLUME 8.9 fL (9.0-12.2); MONOCYTES # (AUTO) 0.7 10^3/uL (0.0-1.0); MONOCYTES % (AUTO) 6 % (0-12); NEUTROPHILS # (AUTO) 9.7 10^3/uL (1.8-7.8); NEUTROPHILS % (AUTO) 81 % (42-75); PLATELET COUNT 250 10^3/uL (130-400)
[2020-12-23] MEDS: inSUlin ASPART (NovoLOG) 1 UNIT/0.01 ML (CHARGE PER UNIT) SC SCH ×4 (05:09→20:18)
[2020-12-23 05:10] LABS: ALBUMIN 3.5 GM/DL (3.2-4.5)
[2020-12-23 05:13] LABS: TOTAL PROTEIN 5.8 GM/DL (6.4-8.2)
[2020-12-23 05:14] LABS: BILIRUBIN,TOTAL 0.3 MG/DL (0.1-1.0)
[2020-12-23 05:16] LABS: CREATININE SERUM 1.75 MG/DL (0.60-1.30)
[2020-12-23 05:19] LABS: MAGNESIUM 1.6 MG/DL (1.6-2.4)
[2020-12-23] MEDS: FUROSEMIDE 20 MG (LASIX) TAB PO SCH ×2 (06:36→18:15)
--- NOTE | 2020-12-23 06:38 | Progress Note - Hospitalist ---
Subjective HPI/CC On Admission Date Seen by Provider: Dec 23, 2020 Time Seen by Provider: 12:00 Subjective/Events-last exam Patient doing well Fluid restriction at 1500 cc a day Creatinine 1.7 Sitting in chair today Not really eating or drinking much In a good mood Cooperative Wants to go home Review of Systems General: Fatigue, Malaise Objective Exam Vital Signs Vital Signs Date Time Temp Pulse Resp B/P (MAP) Pulse Ox O2 Delivery O2 Flow Rate FiO2 12/24/20 04:07 36.7 82 18 116/80 95 High Flow N/C 4.00 12/21/20 07:53 45 Capillary Refill : Less Than 3 Seconds General Appearance: No Apparent Distress, WD/WN, Chronically ill, Obese Respiratory: Lungs Clear, Normal Breath Sounds Cardiovascular: Regular Rate, Rhythm Neurologic/Psychiatric: Alert, Oriented x3, Depressed Affect Skin: Normal Color, Warm/Dry Results/Procedures Lab Laboratory Tests 12/24/20 04:35 Patient resulted labs reviewed. Assessment/Plan Assessment and Plan Assess & Plan/Chief Complaint Assessment: (1) Acute kidney injury Status: Acute Assessment & Plan: Suspect acute hypovolemic/prerenal, however creatinine was mildly elevated in July, so may have been developing over some time. NS @ 200 mls/hr, following serial BMP, minimal improvement in creatinine, but trending down. No hyperkalemia. 12/19- creatinine improved to 3.61, but rate of improve has slowed. NS decreased to 100 mls/hr, continuing to follow. 12/20- creatinine continuing to trend down, lasix today per Cardiology, will still continue NS for now due to renal dysfunction and hyponatremia, but anticipate d/c soon. 12/21creatinine improved at 1.6 (2) COPD exacerbation Status: Acute Assessment & Plan: Solumedrol given in ER, respiratory support as needed, supplemental oxygen dependent at baseline. ABX started for UTI. 12/19- titrate steroid dose down 12/20- still on vapotherm at 65% FiO2, reports baseline supplemental oxygen use is 2-3 lpm 10/15now on nasal cannula (3) Acidosis Status: Resolved Assessment & Plan: Respiratory and metabolic with elevated PCO2 and high AG on admit (4) Diarrhea Status: Resolved Assessment & Plan: No stool since admit, if diarrhea persists, check c diff, stool culture. Qualifiers: Qualified Codes: R19.7 - Diarrhea, unspecified (5) Anemia Status: Chronic Assessment & Plan: Stable since July, suspect anemia of chronic disease, check iron studies. 12/19- ferritin high, iron normal, TIBC low normal consistent with chronic disease. (6) Obesity Status: Chronic (7) Cardiomyopathy Status: Chronic (8) History of congestive heart failure Status: Chronic Assessment & Plan: BNP and troponin normal/negative on admit. Monitor closely given high rates of IVF for her hypovolemia/hyponatremia. 12/19- BNP increased to 300s, hypotensive this morning, check echo and consult Cardiology. Resume carvedilol, holding sacubatril/losartan and diuretics d/t AR F. 12/20- Appreciate Cardiology recommendations. Echo with EF 45-50%, resuming lasix. (9) Chronic pain Status: Chronic Assessment & Plan: Resume home pain medications (10) Anxiety Status: Chronic Assessment & Plan: Ativan prn (11) Urinary tract infection Status: Acute Assessment & Plan: History of multidrug resistant infection. Started on meropenem based on prior cultures. Does not appear to have sepsis- no elevated WBC, afebrile, no tachycardia, LA normal. Meropenem day 3 Qualifiers: Qualified Codes: N30.01 - Acute cystitis with hematuria (12) Hypoglycemia Status: Resolved (13) Hyponatremia Status: Acute Assessment & Plan: Suspect hypovolemic, however, she does also have history of CHF and risk for hypervolemia. Slightly trending up with NS, may need hypertonic saline, continue to follow serial levels and adjust fluids as needed. 12/19 improving, Na 125 this am, IV rate decreased 12/20 continued improvement, continue current treatments (14) Altered mental status Status: Resolved Assessment & Plan: Suspect secondary to hyponatremia and acute renal failure, improved somewhat this morning. 12/19- coherent and able to discuss her illness today Qualifiers: Qualified Codes: R41.82 - Altered mental status, unspecified (15) Elevated creatine kinase Status: Acute Assessment & Plan: Uncertain etiology, monitor with fluid resuscitation, improving. (16) Hypotension Status: Acute Assessment & Plan: 12/19 Had initial hypotension improved with fluid, but recurred overnight, started on phenylephrine drip per ICU consult physician Qualifiers: Qualified Codes: I95.89 - Other hypotension; E86.1 - Hypovolemia (17) Hospice care patient Status: Resolved Assessment & Plan: Pt has been on hospice, revoked status for admission. When asked if she would want intubated or transferred for dialysis if needed, she stated she does want any aggressive care that would be needed. 12/19 today patient is more alert, and now says she wants to stop everything and go home, however this is inconsistent with her previous statements, and we did discuss that with her current illness, stopping everything may lead to rapid decompensation. I asked her if she had discussed with her family and she had not, and I asked if I could discuss with her daughter, Aylin agreed that would be good and she would wait to make changes based on further discussion. On discussion with [place], she did state patient has previously not expressed this kind of wish in spite of being on hospice (and historically, pt has been readmitted and revoked hospice other times in the past as well), so she would like to talk to Aylin and the other family and get some more information. Will proceed with heart eval and Cardiology consult to see where heart function is currently to assist in decision making as well. 12/20 patient clearly expressing desire to continue aggressive care and to be full code. Will re-evaluate [employer] customer service plans as course progresses. (18) Acute on chronic respiratory failure Status: Acute Assessment & Plan: Flu A and B and Sars-CoV-2 neg. CXR with possible patchy infiltrate, but remainder of findings not consistent with pneumonia. BNP normal on admit, lower suspicion for significant pulmonary edema. Suspect secondary to COPD exacerbation. Qualifiers: Qualified Codes: J96.21 - Acute and chronic respiratory failure with hypoxia; J96.22 - Acute and chronic respiratory failure with hypercapnia (19) DVT prophylaxis Status: Acute Assessment & Plan: Heparin Plan: Transfer to 4th floor Supportive care Monitor creatinine Meropenem UTI treatment 12/23/20: Supportive care Cardiology appreciated Monitor creatinine RODY ALDANA DO Dec 23, 2020 06:38
[2020-12-23] MEDS: PANTOPRAZOLE 40 MG (PROTONIX) VIAL IV SCH (09:52)
[2020-12-23] MEDS: FLUoxetine HCL 20 MG (PROzac) CAP PO SCH (09:52)
[2020-12-23] MEDS: fentaNYL PATCH 100 MCG (DURAGESIC) TD SCH (09:52)
[2020-12-23] MEDS: [UNRECOGNIZED DRUG - OTHER] TP SCH (09:52)
[2020-12-23] MEDS: ASPIRIN E.C. 81 MG (ECOTRIN) TAB PO SCH (09:52)
[2020-12-23] MEDS: fentaNYL PATCH 50 MCG (DURAGESIC) TD SCH (09:52)
[2020-12-23] MEDS: LORazepam 0.5 MG (ATIVAN) TABLET PO PRN ×2 (10:02→18:24)
--- NOTE | 2020-12-23 15:22 | Cardiology Progress Note ---
Progress Note-Cardiology Events since last exam Date Seen by Provider: Dec 23, 2020 Time Seen by Provider: 15:21 Events since last exam We are following her for heart failure. She has been moved out of the ICU to the medical floor. She is feeling better today. She denies chest discomfort, dyspnea at rest, palpitations, or syncope. Her chronic lower extremity edema is unchanged. Certain portions of this document may have been dictated utilizing voice recognition technology. Inherent to this technology, typographical and grammatical errors may exist. As much as I am diligent to identify and correct these mistakes, some errors may remain in the document. Vitals Last set of Vitals Signs Vital Signs 12/21/20 12/23/20 12/23/20 07:53 12:00 13:53 Temp 36.5 Pulse 89 Resp 20 B/P (MAP) 141/78 Pulse Ox 97 O2 Delivery High Flow N/C O2 Flow Rate 4.00 FiO2 45 Labs Labs Laboratory Tests 12/23/20 04:50 Exam Vital Signs Vital Signs Date Time Temp Pulse Resp B/P (MAP) Pulse Ox O2 Delivery O2 Flow Rate FiO2 12/23/20 13:53 97 High Flow N/C 4.00 12/23/20 12:00 36.5 89 20 141/78 12/21/20 07:53 45 Physical Exam General: Alert. No acute distress. She is morbidly obese. She appears older than her stated age. Eye: No xanthelasma. HENT: Normocephalic. Neck: Jugular venous pressure does not appear elevated. Respiratory: Lungs have scattered inspiratory wheezes. Respirations are non- labored. Breath sounds are equal. Symmetrical chest wall expansion. Cardiovascular: Normal rate. Regular rhythm. No murmur. No gallop. 2+ bilateral pretibial edema with venous stasis changes. Gastrointestinal: Soft. Normal bowel sounds. Skin: Warm. Dry. Neurologic: Alert and oriented to person, place, time. Cranial nerves 3-11 grossly intact. Psychiatric: Cooperative. Appropriate mood & affect. Labs Laboratory Tests Test 12/22/20 16:28 12/22/20 20:33 12/23/20 04:50 12/23/20 05:08 Range/Units Glucometer 180 H 161 H 152 H 70-110 MG/DL White Blood Count 12.0 H 4.3-11.0 10^3/uL Red Blood Count 2.95 L 3.80-5.11 10^6/uL Hemoglobin 8.5 L 11.5-16.0 g/dL Hematocrit 27 L 35-52 % Mean Corpuscular Volume 92 80-99 fL Mean Corpuscular Hemoglobin 29 25-34 pg Mean Corpuscular Hemoglobin Concent 32 32-36 g/dL Red Cell Distribution Width 14.7 H 10.0-14.5 % Platelet Count 250 130-400 10^3/uL Mean Platelet Volume 8.9 L 9.0-12.2 fL Immature Granulocyte % (Auto) 3 % Neutrophils (%) (Auto) 81 H 42-75 % Lymphocytes (%) (Auto) 11 L 12-44 % Monocytes (%) (Auto) 6 0-12 % Eosinophils (%) (Auto) 0 0-10 % Basophils (%) (Auto) 0 0-10 % Neutrophils # (Auto) 9.7 H 1.8-7.8 10^3/uL Lymphocytes # (Auto) 1.3 1.0-4.0 10^3/uL Monocytes # (Auto) 0.7 0.0-1.0 10^3/uL Eosinophils # (Auto) 0.0 0.0-0.3 10^3/uL Basophils # (Auto) 0.0 0.0-0.1 10^3/uL Immature Granulocyte # (Auto) 0.3 H 0.0-0.1 10^3/uL Sodium Level 140 135-145 MMOL/L Potassium Level 4.0 3.6-5.0 MMOL/L Chloride Level 92 L 98-107 MMOL/L Carbon Dioxide Level 36 H 21-32 MMOL/L Anion Gap 12 5-14 MMOL/L Blood Urea Nitrogen 47 H 7-18 MG/DL Creatinine 1.75 H 0.60-1.30 MG/DL Estimat Glomerular Filtration Rate 30 BUN/Creatinine Ratio 27 Glucose Level 154 H 70-105 MG/DL Calcium Level 10.0 8.5-10.1 MG/DL Corrected Calcium 10.4 H 8.5-10.1 MG/DL Magnesium Level 1.6 1.6-2.4 MG/DL Total Bilirubin 0.3 0.1-1.0 MG/DL Aspartate Amino Transf (AST/SGOT) 23 5-34 U/L Alanine Aminotransferase (ALT/SGPT) 31 0-55 U/L Alkaline Phosphatase 51 40-136 U/L Total Protein 5.8 L 6.4-8.2 GM/DL Albumin 3.5 3.2-4.5 GM/DL Test 12/23/20 10:55 Range/Units Glucometer 194 H 70-110 MG/DL Diagnosis/Problems Diagnosis/Problems (1) Acute on chronic systolic heart failure Assessment & Plan: She slowly seems to be improving. Given her poor renal function as well as low blood pressures and history of bradycardia, we are very limited in what we can prescribe for guideline directed medical therapy. She was taking metolazone at home in addition to furosemide and this may have contributed to the acute decline in her renal function. When she is discharged, we may want to consider treating her with loop diuretic alone. She may benefit from changing furosemide over to bumetanide or torsemide for better absorption. Her blood pressures are starting to trend upwards. Her heart rates are also better. Some of the bradycardia may have been related to acute on chronic kidney disease at the time of admission although she did not have significant hyperkalemia. I will restart carvedilol but at a lower dose than what she was taking at home. (2) Cardiomyopathy Status: Chronic Assessment & Plan: This is nonischemic. Her most recent echocardiogram showed mild left ventricular systolic dysfunction. As above, due to low blood pressures as well as her chronic kidney disease, all of her guideline directed medical therapy was stopped. Given the improved blood pressure and heart rate, I will restart a lower dose of carvedilol. We may be able to consider adding long-acting nitrates and spironolactone if her blood pressure and renal function continue to be stable. However, we would need to watch her renal function and potassium levels closely with spironolactone. (3) Coronary artery disease without angina pectoris Assessment & Plan: She had mild coronary artery disease at the time of previous cardiac catheterization. She is not having any angina. I recommend she continue on low strength aspirin. I also started her on statin medication on 12/21. (4) Sinus bradycardia Assessment & Plan: She has a history of sinus bradycardia which got worse with the acute renal failure. As above, I will restart a lower dose of carvedilol and watch her heart rates closely. (5) Shock Assessment & Plan: Exact etiology unclear. This has now resolved. This was probably not cardiogenic shock since her ejection fraction is only mildly impaired. She may have had some component of septic shock. (6) Primary hypertension Assessment & Plan: As above, the shock has resolved and her blood pressures are improving. I will restart low-dose carvedilol. (7) Mixed hyperlipidemia Assessment & Plan: She has known mild to moderate coronary artery disease. She is also diabetic. As such, her goal LDL is less than 70 mg/dL. She is well above this goal. I started her on rosuvastatin 20 mg once a day on 12/21. This should be continued at the time of discharge. (8) Anemia Status: Chronic Assessment & Plan: Her hemoglobin was trending downwards but now seems to have plateaued. Etiology of the anemia is unclear. We will continue to monitor. (9) Morbid obesity Assessment & Plan: She needs to work on weight loss. If she cannot make any headway over the next 6-12 months, she may be a good candidate for bariatric surgery. (10) Electronic cigarette use Assessment & Plan: I again encouraged her to stop using electronic cigarettes. THOMAS SUAZO JR, MD Dec 23, 2020 15:22
[2020-12-23] MEDS: OLANZapine 5 MG (ZyPREXA) TAB PO SCH (20:50)
[2020-12-23] MEDS: ROSUVASTATIN 20 MG (CRESTOR) TABLET PO SCH (20:50)
[2020-12-23] MEDS: RT-ALBUTEROL/IPRATROPIUM 3 ML (DUONEB) VIAL INH PRN (21:19)
[2020-12-24] MEDS: LORazepam INJ 2 MG/ML (ATIVAN) VIAL IVP PRN ×2 (04:21→21:52)
[2020-12-24 04:43] LABS: BASOPHILS % (AUTO) 0 % (0-10); EOSINOPHILS % (AUTO) 0 % (0-10); HEMATOCRIT 28 % (35-52); HEMOGLOBIN 8.8 g/dL (11.5-16.0); LYMPHOCYTES % (AUTO) 10 % (12-44); MEAN CORPUSCULAR HEMOGLOBIN 29 pg (25-34); MEAN CORPUSCULAR HGB CONC 31 g/dL (32-36); MEAN CORPUSCULAR VOLUME 91 fL (80-99); MEAN PLATELET VOLUME 8.9 fL (9.0-12.2); MONOCYTES # (AUTO) 0.4 10^3/uL (0.0-1.0); MONOCYTES % (AUTO) 4 % (0-12); NEUTROPHILS # (AUTO) 8.4 10^3/uL (1.8-7.8); NEUTROPHILS % (AUTO) 84 % (42-75); PLATELET COUNT 223 10^3/uL (130-400); WHITE BLOOD COUNT 10.1 10^3/uL (4.3-11.0)
[2020-12-24 04:55] LABS: ALBUMIN 3.6 GM/DL (3.2-4.5); POTASSIUM 4.3 MMOL/L (3.6-5.0)
[2020-12-24 04:57] LABS: CALCIUM 10.1 MG/DL (8.5-10.1)
[2020-12-24 04:58] LABS: TOTAL PROTEIN 6.1 GM/DL (6.4-8.2)
[2020-12-24 05:00] LABS: BILIRUBIN,TOTAL 0.4 MG/DL (0.1-1.0)
[2020-12-24 05:02] LABS: CREATININE SERUM 1.75 MG/DL (0.60-1.30)
[2020-12-24 05:04] LABS: MAGNESIUM 1.4 MG/DL (1.6-2.4)
[2020-12-24] MEDS: inSUlin ASPART (NovoLOG) 1 UNIT/0.01 ML (CHARGE PER UNIT) SC SCH ×4 (05:33→20:07)
[2020-12-24] MEDS: FUROSEMIDE 20 MG (LASIX) TAB PO SCH ×2 (06:31→17:49)
[2020-12-24] MEDS: ASPIRIN E.C. 81 MG (ECOTRIN) TAB PO SCH (08:55)
[2020-12-24] MEDS: FLUoxetine HCL 20 MG (PROzac) CAP PO SCH (08:55)
[2020-12-24] MEDS: PANTOPRAZOLE 40 MG (PROTONIX) VIAL IV SCH (08:55)
[2020-12-24] MEDS: LORazepam 0.5 MG (ATIVAN) TABLET PO PRN ×2 (08:56→16:04)
--- NOTE | 2020-12-24 10:51 | Progress Note - Hospitalist ---
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 Assessment/Plan Assessment and Plan Assess & Plan/Chief Complaint Assessment: (1) Acute kidney injury Status: Acute Assessment & Plan: Suspect acute hypovolemic/prerenal, however creatinine was mildly elevated in July, so may have been developing over some time. NS @ 200 mls/hr, following serial BMP, minimal improvement in creatinine, but trending down. No hyperkalemia. 12/19- creatinine improved to 3.61, but rate of improve has slowed. NS decreased to 100 mls/hr, continuing to follow. 12/20- creatinine continuing to trend down, lasix today per Cardiology, will still continue NS for now due to renal dysfunction and hyponatremia, but anticipate d/c soon. 12/21creatinine improved at 1.6 (2) COPD exacerbation Status: Acute Assessment & Plan: Solumedrol given in ER, respiratory support as needed, supplemental oxygen dependent at baseline. ABX started for UTI. 12/19- titrate steroid dose down 12/20- still on vapotherm at 65% FiO2, reports baseline supplemental oxygen use is 2-3 lpm 10/15now on nasal cannula (3) Acidosis Status: Resolved Assessment & Plan: Respiratory and metabolic with elevated PCO2 and high AG on admit (4) Diarrhea Status: Resolved Assessment & Plan: No stool since admit, if diarrhea persists, check c diff, stool culture. Qualifiers: Qualified Codes: R19.7 - Diarrhea, unspecified (5) Anemia Status: Chronic Assessment & Plan: Stable since July, suspect anemia of chronic disease, check iron studies. 12/19- ferritin high, iron normal, TIBC low normal consistent with chronic disease. (6) Obesity Status: Chronic (7) Cardiomyopathy Status: Chronic (8) History of congestive heart failure Status: Chronic Assessment & Plan: BNP and troponin normal/negative on admit. Monitor closely given high rates of IVF for her hypovolemia/hyponatremia. 12/19- BNP increased to 300s, hypotensive this morning, check echo and consult Cardiology. Resume carvedilol, holding sacubatril/losartan and diuretics d/t ARF. 12/20- Appreciate Cardiology recommendations. Echo with EF 45-50%, resuming lasix. (9) Chronic pain Status: Chronic Assessment & Plan: Resume home pain medications (10) Anxiety Status: Chronic Assessment & Plan: Ativan prn (11) Urinary tract infection Status: Acute Assessment & Plan: History of multidrug resistant infection. Started on meropenem based on prior cultures. Does not appear to have sepsis- no elevated WBC, afebrile, no tachycardia, LA normal. Meropenem day 3 Qualifiers: Qualified Codes: N30.01 - Acute cystitis with hematuria (12) Hypoglycemia Status: Resolved (13) Hyponatremia Status: Acute Assessment & Plan: Suspect hypovolemic, however, she does also have history of CHF and risk for hypervolemia. Slightly trending up with NS, may need hypertonic saline, continue to follow serial levels and adjust fluids as needed. 12/19 improving, Na 125 this am, IV rate decreased 12/20 continued improvement, continue current treatments (14) Altered mental status Status: Resolved Assessment & Plan: Suspect secondary to hyponatremia and acute renal failure, improved somewhat this morning. 12/19- coherent and able to discuss her illness today Qualifiers: Qualified Codes: R41.82 - Altered mental status, unspecified (15) Elevated creatine kinase Status: Acute Assessment & Plan: Uncertain etiology, monitor with fluid resuscitation, improving. (16) Hypotension Status: Acute Assessment & Plan: 12/19 Had initial hypotension improved with fluid, but recurred overnight, started on phenylephrine drip per ICU consult physician Qualifiers: Qualified Codes: I95.89 - Other hypotension; E86.1 - Hypovolemia (17) Hospice care patient Status: Resolved Assessment & Plan: Pt has been on hospice, revoked status for admission. When asked if she would want intubated or transferred for dialysis if needed, she stated she does want any aggressive care that would be needed. 12/19 today patient is more alert, and now says she wants to stop everything and go home, however this is inconsistent with her previous statements, and we did discuss that with her current illness, stopping everything may lead to rapid decompensation. I asked her if she had discussed with her family and she had not, and I asked if I could discuss with her daughter, Aylin agreed that would be good and she would wait to make changes based on further discussion. On discussion with [place], she did state patient has previously not expressed this kind of wish in spite of being on hospice (and historically, pt has been readmitted and revoked hospice other times in the past as well), so she would like to talk to Aylin and the other family and get some more information. Will proceed with heart eval and Cardiology consult to see where heart function is currently to assist in decision making as well. 12/20 patient clearly expressing desire to continue aggressive care and to be full code. 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 (18) Acute on chronic respiratory failure Status: Acute Assessment & Plan: Flu A and B and Sars-CoV-2 neg. CXR with possible patchy infiltrate, but remainder of findings not consistent with pneumonia. BNP normal on admit, lower suspicion for significant pulmonary edema. Suspect secondary to COPD exacerbation. Qualifiers: Qualified Codes: J96.21 - Acute and chronic respiratory failure with hypoxia; J96.22 - Acute and chronic respiratory failure with hypercapnia (19) DVT prophylaxis Status: Acute Assessment & Plan: Heparin Plan: Transfer to 4th floor Supportive care Monitor creatinine Meropenem UTI treatment 12/23/20: Supportive care Cardiology appreciated Monitor creatinine 12/24/20: Change from OR to [facility]? [place] [facility]? RODY ALDANA DO Dec 24, 2020 10:51
[2020-12-24] MEDS ORDERED: MEROPENEM 500 MG/SWFI 10 ML IV PUSH IV SCH ×2 (11:00)
[2020-12-24] MEDS: methylPREDNISolone 125 MG (Solu-MEDROL) VIAL IVP SCH (13:00)
--- NOTE | 2020-12-24 19:14 | Cardiology Progress Note ---
Progress Note-Cardiology Events since last exam Date Seen by Provider: Dec 24, 2020 Time Seen by Provider: 19:09 Events since last exam We are seeing her due to heart failure. She was sitting up on the edge of the bed. Her breathing is much improved. Spirits are better. She denies chest pain, palpitations, or syncope. She has very mild ankle edema. She hopes to be discharged soon. She does not yet have a place to go. Certain portions of this document may have been dictated utilizing voice recognition technology. Inherent to this technology, typographical and grammatical errors may exist. As much as I am diligent to identify and correct these mistakes, some errors may remain in the document. Vitals Last set of Vitals Signs Vital Signs 12/21/20 12/24/20 07:53 15:55 Temp 37.1 Pulse 91 Resp 24 B/P (MAP) 147/104 Pulse Ox 96 O2 Delivery High Flow N/C O2 Flow Rate 4.00 FiO2 45 Labs Labs Laboratory Tests 12/24/20 04:35 Exam Vital Signs Vital Signs Date Time Temp Pulse Resp B/P (MAP) Pulse Ox O2 Delivery O2 Flow Rate FiO2 12/24/20 15:55 37.1 91 24 147/104 96 High Flow N/C 4.00 12/21/20 07:53 45 Physical Exam General: Alert. No acute distress. She is morbidly obese. Eye: No xanthelasma. HENT: Normocephalic. Neck: Jugular venous pressure does not appear elevated. Respiratory: Lungs are clear to auscultation. Respirations are non-labored. Breath sounds are equal. Symmetrical chest wall expansion. Cardiovascular: Normal rate. Regular rhythm. No murmur. No gallop. Trace bilateral pretibial edema. Gastrointestinal: Soft. Normal bowel sounds. Skin: Warm. Dry. Neurologic: Alert and oriented to person, place, time. Cranial nerves 3-11 grossly intact. Psychiatric: Cooperative. Appropriate mood & affect. Labs Laboratory Tests Test 12/23/20 20:14 12/24/20 04:35 12/24/20 11:01 12/24/20 16:00 Range/Units Glucometer 165 H 128 H 143 H 70-110 MG/DL White Blood Count 10.1 4.3-11.0 10^3/uL Red Blood Count 3.08 L 3.80-5.11 10^6/uL Hemoglobin 8.8 L 11.5-16.0 g/dL Hematocrit 28 L 35-52 % Mean Corpuscular Volume 91 80-99 fL Mean Corpuscular Hemoglobin 29 25-34 pg Mean Corpuscular Hemoglobin Concent 31 L 32-36 g/dL Red Cell Distribution Width 14.5 10.0-14.5 % Platelet Count 223 130-400 10^3/uL Mean Platelet Volume 8.9 L 9.0-12.2 fL Immature Granulocyte % (Auto) 2 % Neutrophils (%) (Auto) 84 H 42-75 % Lymphocytes (%) (Auto) 10 L 12-44 % Monocytes (%) (Auto) 4 0-12 % Eosinophils (%) (Auto) 0 0-10 % Basophils (%) (Auto) 0 0-10 % Neutrophils # (Auto) 8.4 H 1.8-7.8 10^3/uL Lymphocytes # (Auto) 1.0 1.0-4.0 10^3/uL Monocytes # (Auto) 0.4 0.0-1.0 10^3/uL Eosinophils # (Auto) 0.0 0.0-0.3 10^3/uL Basophils # (Auto) 0.0 0.0-0.1 10^3/uL Immature Granulocyte # (Auto) 0.2 H 0.0-0.1 10^3/uL Sodium Level 139 135-145 MMOL/L Potassium Level 4.3 3.6-5.0 MMOL/L Chloride Level 91 L 98-107 MMOL/L Carbon Dioxide Level 36 H 21-32 MMOL/L Anion Gap 12 5-14 MMOL/L Blood Urea Nitrogen 49 H 7-18 MG/DL Creatinine 1.75 H 0.60-1.30 MG/DL Estimat Glomerular Filtration Rate 30 BUN/Creatinine Ratio 28 Glucose Level 159 H 70-105 MG/DL Calcium Level 10.1 8.5-10.1 MG/DL Corrected Calcium 10.4 H 8.5-10.1 MG/DL Magnesium Level 1.4 L 1.6-2.4 MG/DL Total Bilirubin 0.4 0.1-1.0 MG/DL Aspartate Amino Transf (AST/SGOT) 23 5-34 U/L Alanine Aminotransferase (ALT/SGPT) 34 0-55 U/L Alkaline Phosphatase 49 40-136 U/L Total Protein 6.1 L 6.4-8.2 GM/DL Albumin 3.6 3.2-4.5 GM/DL Diagnosis/Problems Diagnosis/Problems (1) Acute on chronic systolic heart failure Assessment & Plan: She slowly seems to be improving. Given her poor renal function as well as low blood pressures and history of bradycardia, we are very limited in what we can prescribe for guideline directed medical therapy. She was taking metolazone at home in addition to furosemide and this may have contr ibuted to the acute decline in her renal function. She now seems to be tolerating low-dose oral furosemide. I also started her on low-dose carvedilol. No ROSITA inhibitor or ARB due to previous acute renal failure. (2) Cardiomyopathy Status: Chronic Assessment & Plan: This is nonischemic. Her most recent echocardiogram showed mild left ventricular systolic dysfunction. As above, due to low blood pressures as well as her chronic kidney disease, all of her guideline directed medical therapy was stopped. She now seems to be tolerating low-dose carvedilol which I started 12/23. We may be able to consider adding long-acting nitrates and spironolactone if her blood pressure and renal function continue to be stable. However, we would need to watch her renal function and potassium levels closely with spironolactone. We may want to hold off on making any other changes until after discharge. (3) Coronary artery disease without angina pectoris Assessment & Plan: She had mild coronary artery disease at the time of previous cardiac catheterization. She is not having any angina. I recommend she continue on low strength aspirin. I also started her on statin medication on 12/21 and beta-nacho on 12/23. (4) Sinus bradycardia Assessment & Plan: She has a history of sinus bradycardia which got worse with the acute renal failure. As above, I restarted a low-dose of carvedilol on 12/23 and her heart rate seem to be tolerating this. (5) Primary hypertension Assessment & Plan: She had shock of unclear etiology earlier during this admission which has resolved and her blood pressures are improving. She seems to be tolerating low-dose beta-nacho. (6) Mixed hyperlipidemia Assessment & Plan: She has known mild to moderate coronary artery disease. She is also diabetic. As such, her goal LDL is less than 70 mg/dL. She is well above this goal. I started her on rosuvastatin 20 mg once a day on 12/21. This should be continued at the time of discharge. (7) Morbid obesity Assessment & Plan: She needs to work on weight loss. If she cannot make any headway over the next 6-12 months, she may be a good candidate for bariatric surgery. (8) Electronic cigarette use Assessment & Plan: I again encouraged her to stop using electronic cigarettes. THOMAS SUAZO JR, MD Dec 24, 2020 19:14
[2020-12-24] MEDS: OLANZapine 5 MG (ZyPREXA) TAB PO SCH (20:03)
[2020-12-24] MEDS: ROSUVASTATIN 20 MG (CRESTOR) TABLET PO SCH (20:03)
[2020-12-24] MEDS: MEROPENEM 500 MG/SWFI 10 ML IV PUSH IV SCH ×2 (21:53)
[2020-12-25] MEDS: LORazepam 0.5 MG (ATIVAN) TABLET PO PRN ×2 (02:15→08:25)
[2020-12-25] MEDS: FUROSEMIDE 20 MG (LASIX) TAB PO SCH (05:33)
[2020-12-25] MEDS: MEROPENEM 500 MG/SWFI 10 ML IV PUSH IV SCH ×4 (05:33→14:18)
[2020-12-25 05:57] LABS: BASOPHILS % (AUTO) 0 % (0-10); EOSINOPHILS % (AUTO) 0 % (0-10); HEMATOCRIT 28 % (35-52); HEMOGLOBIN 8.6 g/dL (11.5-16.0); LYMPHOCYTES # (AUTO) 2.3 10^3/uL (1.0-4.0); LYMPHOCYTES % (AUTO) 23 % (12-44); MEAN CORPUSCULAR HEMOGLOBIN 28 pg (25-34); MEAN CORPUSCULAR HGB CONC 31 g/dL (32-36); MEAN CORPUSCULAR VOLUME 92 fL (80-99); MEAN PLATELET VOLUME 9.3 fL (9.0-12.2); MONOCYTES # (AUTO) 0.9 10^3/uL (0.0-1.0); MONOCYTES % (AUTO) 8 % (0-12); NEUTROPHILS # (AUTO) 6.8 10^3/uL (1.8-7.8); NEUTROPHILS % (AUTO) 67 % (42-75); PLATELET COUNT 205 10^3/uL (130-400); WHITE BLOOD COUNT 10.2 10^3/uL (4.3-11.0)
[2020-12-25 06:08] LABS: ALBUMIN 3.6 GM/DL (3.2-4.5); POTASSIUM 3.7 MMOL/L (3.6-5.0)
[2020-12-25 06:11] LABS: TOTAL PROTEIN 5.9 GM/DL (6.4-8.2)
[2020-12-25 06:12] LABS: BILIRUBIN,TOTAL 0.4 MG/DL (0.1-1.0)
[2020-12-25 06:14] LABS: CREATININE SERUM 1.57 MG/DL (0.60-1.30)
[2020-12-25 06:17] LABS: MAGNESIUM 1.5 MG/DL (1.6-2.4)
[2020-12-25] MEDS: inSUlin ASPART (NovoLOG) 1 UNIT/0.01 ML (CHARGE PER UNIT) SC SCH ×2 (06:32→11:31)
[2020-12-25] MEDS ORDERED: predniSONE 20 MG TAB PO SCH (07:00)
[2020-12-25] MEDS: FLUoxetine HCL 20 MG (PROzac) CAP PO SCH (08:25)
[2020-12-25] MEDS: ASPIRIN E.C. 81 MG (ECOTRIN) TAB PO SCH (08:25)
[2020-12-25] MEDS: fentaNYL PATCH 50 MCG (DURAGESIC) TD SCH (08:26)
[2020-12-25] MEDS: fentaNYL PATCH 100 MCG (DURAGESIC) TD SCH (08:26)
[2020-12-25] MEDS ORDERED: PANTOPRAZOLE 40 MG (PROTONIX) TAB PO SCH (09:00)
[2020-12-25] MEDS: ONDANSETRON 4 MG/2 ML (SDV) Z0FRAN IVP PRN (10:39)
[2020-12-25] MEDS ORDERED: Lorazepam PO (10:44)
[2020-12-25] MEDS ORDERED: HYDR-3820 PO (10:44)
[2020-12-25] MEDS ORDERED: ROSU20TA32 PO (10:44)
[2020-12-25] MEDS ORDERED: PANT40TA52 PO (10:44)
[2020-12-25] MEDS ORDERED: FENT1PAT11 TD (10:44)
[2020-12-25] MEDS ORDERED: FENT1PAT9 TD (10:44)
--- NOTE | 2020-12-25 10:45 | Discharge Summary ---
Discharge Summary Hospital Course Was the Problem List Reviewed?: Yes Problems/Dx: (1) Acute on chronic systolic heart failure (2) Cardiomyopathy Status: Chronic (3) Coronary artery disease without angina pectoris (4) Sinus bradycardia (5) Primary hypertension (6) Mixed hyperlipidemia (7) Morbid obesity (8) Electronic cigarette use Hospital Course Date of Admission: Dec 18, 2020 at 00:39 Admission Diagnosis : Family Physician/Provider: [facility] Date of Discharge: 12/25/20 Discharge Diagnosis: AECHF, MAYRA, CKD, obesity, O2 dependence Hospital Course: Lengthy course after admitted for MAYRA on CKD with dyspnea requiring Cardiology consultation and ICU admit. Hospice was revoked and completely DC at DC. Patient required balance between IVF and Lasix. UTI ESBL treatment with Meropenem for total of 9 days completed treatment. 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 Labs and Pending Lab Test: Laboratory Tests 12/24/20 11:01: Glucometer 128H 12/24/20 16:00: Glucometer 143H 12/24/20 20:07: Glucometer 174H 12/25/20 05:35: White Blood Count 10.2, Red Blood Count 3.03L, Hemoglobin 8.6L, Hematocrit 28L, Mean Corpuscular Volume 92, Mean Corpuscular Hemoglobin 28, Mean Corpuscular Hemoglobin Concent 31L, Red Cell Distribution Width 14.6H, Platelet Count 205, Mean Platelet Volume 9.3, Immature Granulocyte % (Auto) 2, Neutrophils (%) (Auto) 67, Lymphocytes (%) (Auto) 23, Monocytes (%) (Auto) 8, Eosinophils (%) (Auto) 0, Basophils (%) (Auto) 0, Neutrophils # (Auto) 6.8, Lymphocytes # (Auto) 2.3, Monocytes # (Auto) 0.9, Eosinophils # (Auto) 0.0, Basophils # (Auto) 0.0, Immature Granulocyte # (Auto) 0.2H, Sodium Level 141, Potassium Level 3.7, Chloride Level 90L, Carbon Dioxide Level 38H, Anion Gap 13, Blood Urea Nitrogen 50H, Creatinine 1.57H, Estimat Glomerular Filtration Rate 34, BUN/Creatinine Ratio 32, Glucose Level 140H, Calcium Level 10.0, Corrected Calcium 10.3H, Magnesium Level 1.5L, Total Bilirubin 0.4, Aspartate Amino Transf (AST/SGOT) 22, Alanine Aminotransferase (ALT/SGPT) 37, Alkaline Phosphatase 54, Total Protein 5.9L, Albumin 3.6 12/25/20 05:45: Glucometer 139H Microbiology 12/18/20 MRSA Screen - Final, Complete MRSA not isolated 12/17/20 Urine Culture - Final, Complete Escherichia coli 12/17/20 Blood Culture - Final, Complete No growth Home Meds Active Reported Potassium Chloride 10 Meq Tab.er.prt 20 Meq PO DAILY TAKES 2 (10MEQ) TABS Nitrofurantoin [place]-Mcr 100 mg (Nitrofurantoin Monohyd/M-Cryst) 100 Mg Capsule 1 Ea PO HS Metolazone 5 Mg Tablet 5 Mg PO 0600,1800 TAKES 30 MINUTES BEFORE FUROSEMIDE Fluconazole 100 Mg Tablet 100 Mg PO DAILY STARTED 12-13-2020 #7/ DAY SUPPLY Centrum Women Tablet (Multivitamin/Iron/Folic Acid) 1 Each Tablet 1 Each PO DAILY Ciprofloxacin HCl 500 Mg Tablet 500 Mg PO BID STARTED 12-13-2020 #14/7 DAY SUPPLY Biofreeze (Menthol) 118 Ml Gel..ml. 1 Applic TP UD PRN Benzonatate 100 Mg Capsule 100 Mg PO QID Hydrocodone-Acetamin 10-325 mg (Hydrocodone/Acetaminophen) 1 Each Tablet 1 Ea PO Q6H PRN Carvedilol 6.25 Mg Tablet 3.125 Mg PO BID WITH MEALS TAKES OF A 3.125MG TAB Prednisone 10 Mg Tab 10 Mg PO DAILY Olanzapine 10 Mg Tablet 10 Mg PO HS Furosemide 40 Mg Tablet 40 Mg PO 0600,1800 TAKES 20MG +40MG TO EQUAL 60MG DAILY TAKES 30 MINUTES AFTER METOLAZONE Promethazine HCl 12.5 Mg Tablet 12.5-25 Mg PO Q6H PRN Bumetanide 1 Mg Tablet 1 Mg PO DAILY Ativan (Lorazepam) 1 Mg Tablet 4 Mg PO Q4H TAKES 4 (1MG) TABS Fluoxetine HCl 20 Mg Capsule 20 Mg PO DAILY Fentanyl Patch 100 MCG (Fentanyl) 1 Each Patch.td72 100 Mcg TD Q72H USES A 50MCG +100MCG PATCH, BOTH ARE APPLIED ON THE SAME DAY Proventil Hfa (Albuterol Sulfate) 6.7 Gm Hfa.aer.ad 2 Puff INH Q4H PRN Fentanyl Patch 50 MCG (Fentanyl) 1 Each Patch.td72 50 Mcg TD Q72H USES A 50MCG +100MCG PATCH, BOTH ARE APPLIED ON THE SAME DAY Morphine Conc. 20mg/ml (Morphine Sulfate) 100 Mg/5 Ml Solution 0.5-1 Ml PO Q15M PRN Entresto 24 mg-26 mg Tablet (Sacubitril/Valsartan) 1 Each Tablet 1 Tab PO 0600,1800 Aspirin EC (Aspirin) 81 Mg Tablet.dr 81 Mg PO DAILY Furosemide 20 Mg Tablet 20 Mg PO 0600,1800 TAKES 20MG +40MG TO EQUAL 60MG DAILY TAKES 30 MINUTES AFTER METOLAZONE Iprat-Albut 0.5-3(2.5) mg/3 ml (Ipratropium/Albuterol Sulfate) 3 Ml Ampul.neb 3 Ml IH Q6H PRN Glimepiride 1 Mg Tablet 1 Mg PO DAILY PRN Assessment/Pt Instructions PCP [facility] rounds Discharge Planning: <30 minutes discharge planning Discharge Instructions Discharge Diet: Low Sodium Diet Activity as Tolerated: Yes Discharge Physical Examination Vital Signs Vital Signs Date Time Temp Pulse Resp B/P (MAP) Pulse Ox O2 Delivery O2 Flow Rate FiO2 12/25/20 07:35 36.4 79 20 140/91 96 High Flow N/C 4.00 12/21/20 07:53 45 General Appearance: No Apparent Distress, WD/WN, Chronically ill Allergies: Coded Allergies: buspirone (Verified Allergy, Mild, 05/02/17) Made"legs Shaky" amitriptyline (Verified Allergy, Unknown, 05/02/17) " MAKES ME DO WEIRD THINGS LIKE WALK IN MY SLEEP AND HAVE HALLUCINATIONS." Discharge Summary Date of Admission Dec 18, 2020 at 00:39 Date of Discharge Discharge Date: Dec 25, 2020 Discharge Diagnosis Assessment: (1) Acute kidney injury Status: Acute Assessment & Plan: Suspect acute hypovolemic/prerenal, however creatinine was mildly elevated in July, so may have been developing over some time. NS @ 200 mls/hr, following serial BMP, minimal improvement in creatinine, but trending down. No hyperkalemia. 12/19- creatinine improved to 3.61, but rate of improve has slowed. NS decreased to 100 mls/hr, continuing to follow. 12/20- creatinine continuing to trend down, lasix today per Cardiology, will still continue NS for now due to renal dysfunction and hyponatremia, but anticipate d/c soon. 12/21creatinine improved at 1.6 (2) COPD exacerbation Status: Acute Assessment & Plan: Solumedrol given in ER, respiratory support as needed, supplemental oxygen dependent at baseline. ABX started for UTI. 12/19- titrate steroid dose down 12/20- still on vapotherm at 65% FiO2, reports baseline supplemental oxygen use is 2-3 lpm 10/15now on nasal cannula (3) Acidosis Status: Resolved Assessment & Plan: Respiratory and metabolic with elevated PCO2 and high AG on admit (4) Diarrhea Status: Resolved Assessment & Plan: No stool since admit, if diarrhea persists, check c diff, stool culture. Qualifiers: Qualified Codes: R19.7 - Diarrhea, unspecified (5) Anemia Status: Chronic Assessment & Plan: Stable since July, suspect anemia of chronic disease, check iron studies. 12/19- ferritin high, iron normal, TIBC low normal consistent with chronic disease. (6) Obesity Status: Chronic (7) Cardiomyopathy Status: Chronic (8) History of congestive heart failure Status: Chronic Assessment & Plan: BNP and troponin normal/negative on admit. Monitor closely given high rates of IVF for her hypovolemia/hyponatremia. 12/19- BNP increased to 300s, hypotensive this morning, check echo and consult Cardiology. Resume carvedilol, holding sacubatril/losartan and diuretics d/t ARF. 12/20- Appreciate Cardiology recommendations. Echo with EF 45-50%, resuming lasix. (9) Chronic pain Status: Chronic Assessment & Plan: Resume home pain medications (10) Anxiety Status: Chronic Assessment & Plan: Ativan prn (11) Urinary tract infection Status: Acute Assessment & Plan: History of multidrug resistant infection. Started on meropenem based on prior cultures. Does not appear to have sepsis- no elevated WBC, afebrile, no tachycardia, LA normal. Meropenem day 3 Qualifiers: Qualified Codes: N30.01 - Acute cystitis with hematuria (12) Hypoglycemia Status: Resolved (13) Hyponatremia Status: Acute Assessment & Plan: Suspect hypovolemic, however, she does also have history of CHF and risk for hypervolemia. Slightly trending up with NS, may need hypertonic saline, continue to follow serial levels and adjust fluids as needed. 12/19 improving, Na 125 this am, IV rate decreased 12/20 continued improvement, continue current treatments (14) Altered mental status Status: Resolved Assessment & Plan: Suspect secondary to hyponatremia and acute renal failure, improved somewhat this morning. 12/19- coherent and able to discuss her illness today Qualifiers: Qualified Codes: R41.82 - Altered mental status, unspecified (15) Elevated creatine kinase Status: Acute Assessment & Plan: Uncertain etiology, monitor with fluid resuscitation, improving. (16) Hypotension Status: Acute Assessment & Plan: 12/19 Had initial hypotension improved with fluid, but recurred overnight, started on phenylephrine drip per ICU consult physician Qualifiers: Qualified Codes: I95.89 - Other hypotension; E86.1 - Hypovolemia (17) Hospice care patient Status: Resolved Assessment & Plan: Pt has been on hospice, revoked status for admission. When asked if she would want intubated or transferred for dialysis if needed, she stated she does want any aggressive care that would be needed. 12/19 today patient is more alert, and now says she wants to stop everything and go home, however this is inconsistent with her previous statements, and we did discuss that with her current illness, stopping everything may lead to rapid decompensation. I asked her if she had discussed with her family and she had not, and I asked if I could discuss with her daughter, Aylin agreed that would be good and she would wait to make changes based on further discussion. On discussion with [place], she did state patient has previously not expressed this kind of wish in spite of being on hospice (and historically, pt has been readmitted and revoked hospice other times in the past as well), so she would like to talk to Aylin and the other family and get some more information. Will proceed with heart eval and Cardiology consult to see where heart function is currently to assist in decision making as well. 12/20 patient clearly expressing desire to continue aggressive care and to be full code. 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 (18) Acute on chronic respiratory failure Status: Acute Assessment & Plan: Flu A and B and Sars-CoV-2 neg. CXR with possible patchy infiltrate, but remainder of findings not consistent with pneumonia. BNP normal on admit, lower suspicion for significant pulmonary edema. Suspect secondary to COPD exacerbation. Qualifiers: Qualified Codes: J96.21 - Acute and chronic respiratory failure with hypoxia; J96.22 - Acute and chronic respiratory failure with hypercapnia (19) DVT prophylaxis Status: Acute Assessment & Plan: Heparin Plan: Transfer to 4th floor Supportive care Monitor creatinine Meropenem UTI treatment 12/23/20: Supportive care Cardiology appreciated Monitor creatinine 12/24/20: Change from [facility]? DC Hospice? (1) Acute on chronic systolic heart failure Assessment & Plan: She slowly seems to be improving. Given her poor renal function as well as low blood pressures and history of bradycardia, we are very limited in what we can prescribe for guideline directed medical therapy. She was taking metolazone at home in addition to furosemide and this may have contributed to the acute decline in her renal function. She now seems to be tolerating low-dose oral furosemide. I also started her on low-dose carvedilol. No ROSITA inhibitor or ARB due to previous acute renal failure. (2) Cardiomyopathy Status: Chronic Assessment & Plan: This is nonischemic. Her most recent echocardiogram showed mild left ventricular systolic dysfunction. As above, due to low blood pressures as well as her chronic kidney disease, all of her guideline directed medical therapy was stopped. She now seems to be tolerating low-dose carvedilol which I started 12/23. We may be able to consider adding long-acting nitrates and spironolactone if her blood pressure and renal function continue to be stable. However, we would need to watch her renal function and potassium levels closely with spironolactone. We may want to hold off on making any other changes until after discharge. (3) Coronary artery disease without angina pectoris Assessment & Plan: She had mild coronary artery disease at the time of previous cardiac catheterization. She is not having any angina. I recommend she continue on low strength aspirin. I also started her on statin medication on 12/21 and beta-nacho on 12/23. (4) Sinus bradycardia Assessment & Plan: She has a history of sinus bradycardia which got worse with the acute renal failure. As above, I restarted a low-dose of carvedilol on 12/23 and her heart rate seem to be tolerating this. (5) Primary hypertension Assessment & Plan: She had shock of unclear etiology earlier during this admission which has resolved and her blood pressures are improving. She seems to be tolerating low-dose beta-nacho. (6) Mixed hyperlipidemia Assessment & Plan: She has known mild to moderate coronary artery disease. She is also diabetic. As such, her goal LDL is less than 70 mg/dL. She is well above this goal. I started her on rosuvastatin 20 mg once a day on 12/21. This should be continued at the time of discharge. (7) Morbid obesity Assessment & Plan: She needs to work on weight loss. If she cannot make any headway over the next 6-12 months, she may be a good candidate for bariatric surgery. (8) Electronic cigarette use Assessment & Plan: I again encouraged her to stop using electronic cigarettes. RODY ADLANA DO Dec 25, 2020 10:45
[2020-12-25 15:02] VITALS: BP 116/76
== END 2020-12-25 15:20 | DRG 682 ==
LOC: EDUNIT# 21:09 → ER 21:11 → ICU 12-18 00:39 → 4TH 12-22 15:50
PROVIDERS: ADMIT Family Medicine; ATTEND Internal Medicine
PROC: 5A09457 Assistance with Respiratory Ventilation, 24-96 Consecutive Hours, Continuous Positive Airway Pressure (ICD-10-PCS; principal; 2020-12-18)
PROC: 5A0945A Assistance with Respiratory Ventilation, 24-96 Consecutive Hours, High Flow/Velocity Cannula (ICD-10-PCS; 2020-12-23)
DX: N17.9 Acute kidney failure, unspecified (principal); J96.21 Acute and chronic respiratory failure with hypoxia; J96.22 Acute and chronic respiratory failure with hypercapnia; I50.23 Acute on chronic systolic (congestive) heart failure; J44.1 Chronic obstructive pulmonary disease with (acute) exacerbation; N39.0 Urinary tract infection, site not specified; E87.1 Hypo-osmolality and hyponatremia; G93.40 Encephalopathy, unspecified; R57.9 Shock, unspecified; I44.2 Atrioventricular block, complete; M62.82 Rhabdomyolysis; Z68.42 Body mass index [BMI] 45.0-49.9, adult; Z16.12 Extended spectrum beta lactamase (ESBL) resistance; I42.9 Cardiomyopathy, unspecified; E11.65 Type 2 diabetes mellitus with hyperglycemia; I11.0 Hypertensive heart disease with heart failure; K21.9 Gastro-esophageal reflux disease without esophagitis; G47.30 Sleep apnea, unspecified; F41.9 Anxiety disorder, unspecified; I25.10 Atherosclerotic heart disease of native coronary artery without angina pectoris; E78.00 Pure hypercholesterolemia, unspecified; K59.09 Other constipation; F31.9 Bipolar disorder, unspecified; F15.10 Other stimulant abuse, uncomplicated; D64.9 Anemia, unspecified; B96.20 Unspecified Escherichia coli [E. coli] as the cause of diseases classified elsewhere; Z20.822 Contact with and (suspected) exposure to COVID-19; Z99.81 Dependence on supplemental oxygen; Z91.19 Patient's noncompliance with other medical treatment and regimen; Z87.01 Personal history of pneumonia (recurrent); Z79.84 Long term (current) use of oral hypoglycemic drugs; Z79.82 Long term (current) use of aspirin; Z79.52 Long term (current) use of systemic steroids; Z88.8 Allergy status to other drugs, medicaments and biological substances; Z82.49 Family history of ischemic heart disease and other diseases of the circulatory system; R00.1 Bradycardia, unspecified; E78.2 Mixed hyperlipidemia; E66.01 Morbid (severe) obesity due to excess calories; E11.649 Type 2 diabetes mellitus with hypoglycemia without coma
CPT/HCPCS: 36415; 51702; 71045; 80048; 80053; 80061; 80306; 81000; 82550; 82728; 82805; 82947; 83540; 83550; 83605; 83735; 83874; 83880; 84100; 84145; 84484; 85007; 85025; 85027; 85610; 85730; 86141; 87040; 87077; 87081; 87088; 87186; 87636; 93005; 93041; 93306; 94640; 94660; 94760; 94761; 96361; 96374; 96375; 99291; 99292

== ENCOUNTER → 2021-01-08 | Outpatient (CLI) | payer MEDICAID ==
[~2021-01-08] MED LIST changes: +CIPR500T5 PO; +CLIN-144 PO; -CLIN300C12 PO; +DULO60CA7 PO; +Lorazepam PO; +MENT118G TP; +METO5TAB6 PO; +MULT-1060 PO; +NITR100C10 PO; +POTA10TA36 PO; +ROSU20TA32 PO
== END ==
LOC: CARD 14:00
PROVIDERS: ATTEND Internal Medicine Cardiovascular Disease
DX: I11.9 Hypertensive heart disease without heart failure (principal)
CPT/HCPCS: 93306

== ENCOUNTER 2021-01-17 22:42 | Emergency (ER) | payer MEDICAID ==
--- NOTE | 2021-01-17 22:53 | ED Chest Pain ---
General Chief Complaint: Chest Pain Stated Complaint: CP Source: patient, EMS, group home records, old records History of Present Illness Date Seen by Provider: Jan 17, 2021 Time Seen by Provider: 22:38 Initial Comments PT ARRIVES VIA EMS FROM [facility] PT C/O SHARP MID CHEST PAIN OFF AND ON SINCE THIS MORNING RATES PAIN 8/10 NOW NOTHING WORSENS OR IMPROVES PAIN HAS NOT TAKEN ANYTHING FOR PAIN PT HAD BEEN ON FENTANYL PATCH 150 MCG, HAS NOT HAD ANY FOR 6 DAYS, AND IT WAS RESTARTED LATE THIS AFTERNOON AT 100 MCG PT HAS PRN ORDER FOR HYDROCODONE, BUT PT HAS NOT HAD ANY TODAY PT HAS COPD AND IS O2 DEPENDENT AT 2-4L/NC CONTINUOUSLY. STATES SHE FEELS A LITTLE MORE SHORT OF BREATH THAN NORMAL PT HAS CHRONIC LEG SWELLING AND STATES HAVE BEEN MORE SWOLLEN THAN NORMAL ALL DAY TODAY PT HAS HAD NAUSEA AND DRY HEAVES, NO ACTUAL VOMITING. HAS NOT HAD ANY MEDICATIONS FOR NAUSEA TODAY NO ABDOMINAL PAIN NO FEVER NO COUGH PT STATES "MY ANXIETY'S THROUGH THE ROOF" HAS LORAZEPAM ORDER TO BE TAKEN PRN FOR ANXIETY--STATES SHE HAS NOT HAD ANY TODAY, BUT EMS REPORTED THAT PT RECEIVED 2 MG ATIVAN AT 2000 TONIGHT. [facility] DID GIVE 324 MG ASPIRIN PT STATES SHE HAS HAD COVID-19 VACCINE X 2, AND HAD A NEGATIVE COVID-19 TEST TODAY AT [facility] PT HAS ALSO HAD FLU VACCINATION FOR THIS SEASON PT ADMITTED HERE IN DECEMBER FOR RESPIRATORY FAILURE HAD BEEN ON HOSPICE AT THAT TIME, BUT SHE REVOKED THIS AT THAT HOSPITALIZATION, AND HAS NOT RESTARTED IT PT DOES REMAIN DNR/DNI PT HAS LONG HISTORY OF SMOKING 3-4 PPD OF CIGARETTES, ALSO LONG HISTORY OF METH USE--SMOKED IT AND USED IT IV. PT LATER ADMITS THAT SHE VAPES AT [facility]. PCP: DR. WOLF Allergies and Home Medications Allergies Coded Allergies: buspirone (Verified Allergy, Mild, 05/02/17) Made"legs Shaky" amitriptyline (Verified Allergy, Unknown, 05/02/17) " MAKES ME DO WEIRD THINGS LIKE WALK IN MY SLEEP AND HAVE HALLUCINATIONS." Patient Home Medication List Home Medication List Reviewed: Yes Albuterol Sulfate (Proventil Hfa) 6.7 Gm Hfa.aer.ad, 2 PUFF INH Q4H PRN for SHORTNESS OF BREATH, (Reported) Entered as Reported by: DANIELLE RICHARD on 07/31/20 1616 Aspirin (Aspirin EC) 81 Mg Tablet.dr, 81 MG PO DAILY, (Reported) Entered as Reported by: HARSH PARRISH on 11/19/17 1603 Benzonatate (Benzonatate) 100 Mg Capsule, 100 MG PO QID, (Reported) Entered as Reported by: DANIELLE RICHARD on 07/31/20 1616 Bumetanide (Bumetanide) 1 Mg Tablet, 1 MG PO DAILY, (Reported) Entered as Reported by: DANIELLE RICHARD on 07/31/20 1616 Carvedilol (Carvedilol) 6.25 Mg Tablet, 3.125 MG PO BID WITH MEALS, (Reported) Entered as Reported by: DANIELLE RICHARD on 07/31/20 1616 Fentanyl (Fentanyl Patch 50 MCG) 1 Each Patch.td72, 50 MCG TD Q72H Prescribed by: RODY ALDANA on 12/25/20 1044 Fentanyl (Fentanyl Patch 100 MCG) 1 Each Patch.td72, 100 MCG TD Q72H Prescribed by: RODY ALDANA on 12/25/20 1044 Fluoxetine HCl (Fluoxetine HCl) 20 Mg Capsule, 20 MG PO DAILY, (Reported) Entered as Reported by: DANIELLE RICHARD on 07/31/20 1616 Glimepiride (Glimepiride) 1 Mg Tablet, 1 MG PO DAILY PRN for WHEN TAKING PREDNISONE, (Reported) Entered as Reported by: HARSH PARRISH on 04/29/17 1346 Hydrocodone/Acetaminophen (Hydrocodone-Acetamin 10-325 mg) 1 Each Tablet, 1 EA PO Q6H PRN for PAIN-MODERATE (5-7) Prescribed by: RODY ALDANA on 12/25/20 1044 Ipratropium/Albuterol Sulfate (Iprat-Albut 0.5-3(2.5) mg/3 ml) 3 Ml Ampul.neb, 3 ML IH Q6H PRN for SHORTNESS OF BREATH, (Reported) Entered as Reported by: HARSH PARRISH on 08/26/17 1605 Menthol (Biofreeze) 118 Ml Gel..ml., 1 APPLIC TP UD PRN for PAIN-BREAKTHROUGH, (Reported) Entered as Reported by: DANIELLE RICHARD on 12/18/20 1129 Multivitamin/Iron/Folic Acid (Centrum Women Tablet) 1 Each Tablet, 1 EACH PO DAILY, (Reported) Entered as Reported by: DANIELLE RICHARD on 12/18/20 1129 Nitrofurantoin Monohyd/M-Cryst (Nitrofurantoin [place]-Mcr 100 mg) 100 Mg Capsule, 1 EA PO HS, (Reported) Entered as Reported by: DANIELLE RICHARD on 12/18/20 112 Olanzapine (Olanzapine) 10 Mg Tablet, 10 MG PO HS, (Reported) Entered as Reported by: DANIELLE RICHARD on 07/31/20 1616 Pantoprazole Sodium (Pantoprazole Sodium) 40 Mg Tablet.dr, 40 MG PO DAILY Prescribed by: RODY ALDANA on 12/25/20 1044 Prednisone (Prednisone) 10 Mg Tab, 10 MG PO DAILY, (Reported) Entered as Reported by: DANIELLE RICHARD on 07/31/20 1616 Promethazine HCl (Promethazine HCl) 12.5 Mg Tablet, 12.5-25 MG PO Q6H PRN for NAUSEA/VOMITING-2ND LINE, (Reported) Entered as Reported by: DANIELLE RICHARD on 07/31/20 1616 Rosuvastatin Calcium (Rosuvastatin Calcium) 20 Mg Tablet, 20 MG PO HS Prescribed by: RODY ALDANA on 12/25/20 1044 [Lorazepam] 0.5 MG TABLET, 2 MG PO QID PRN for ANXIETY Prescribed by: RODY ALDANA on 12/25/20 1044 Review of Systems Review of Systems Constitutional: No fever Respiratory: No Symptoms Reported, Shortness of Air Cardiovascular: See HPI, Chest Pain, Edema Gastrointestinal: Denies Abdominal Pain; Nausea, Vomiting Genitourinary: No Symptoms Reported Musculoskeletal: no symptoms reported Skin: no symptoms reported Psychiatric/Neurological: No Symptoms Reported Endocrine: No Symptoms Reported Hematologic/Lymphatic: No Symptoms Reported Past Meuwysb-[id number]-Frzuwr Hx Patient Social History Use of E-Cig and/or Vaping dev: Yes E-Cig or Vaping type used: Nicotine Use of E-Cig and/or Vaping Greg: Current Everyday User, Heavy User Immunizations Up To Date Tetanus Booster (TDap): Unknown First/Initial COVID19 Vaccinat: 08/03/20 Second COVID19 Vaccination Dustin: 08/27 Seasonal Allergies Seasonal Allergies: No Past Medical History Surgery/Hospitalization HX: IDDM,CHF,COPD,ANXIETY,HIGH LIPIDS Surgeries: Yes (EGD/COLONOSCOPY; CARDIAC CATH 09/18/17--NO INTERVENTION) Cardiac Respiratory: Yes (O2 AT 2-3L/NC) Pneumonia, Chronic Bronchitis, Sleep Apnea, COPD Currently Using CPAP: No Currently Using BIPAP: Yes Cardiac: Yes Cardiomyopathy, Chronic Edema/Swelling, Coronary Artery Disease, High Cholesterol, Hypertension Neurological: Yes Headaches /Migraines 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 Disorders: No 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 Disorders: Denies HAT BINDER History: Menopausal Sexually Transmitted Disease: No HIV/AIDS: No Genitourinary: Yes Bladder Infection Gastrointestinal: Yes (GASTRITIS AND ESOPHAGEAL CANDIDIASIS 04/2017) Gastroesophageal Reflux, Gastrointestinal Bleed, Chronic Constipation, Chronic Diarrhea, Esophagitis, Ulcer Musculoskeletal: Yes (chronic shoulder and neck pain--OPIATE DEPENDENT;MINIMALLY AMBULATORY) Degenerate Disk Disease, Arthritis, Chronic Back Pain Endocrine: Yes (NIDDM; MORBID OBESITY) Diabetes, Non-Insulin dep HEENT: No Cancer: No Psychosocial: Yes (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; POLYSUBSTANCE ABUSE) Sleep Difficulties, Anxiety, Suicide Attempts, Bipolar, Depression Integumentary: No Blood Disorders: Yes (ANEMIA) Adverse Reaction/Blood Tranf: No Family Medical History Cancer 03 MOTHER, Onset:66 (LUNG ) 09 BROTHER (LUNG ) Congestive heart failure 03 FATHER Heart Disease, Cancer SOCIAL HISTORY : -SMOKING--3-4 PPD -ETOH--DENIES USE -DRUG USE--+ 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 0.9oz. 89.474979df; 48.55 BMI Method:Stated General Appearance: No Apparent Distress, WD/WN, Obese (MORBIDLY OBESE) Neck: Normal Inspection Respiratory: Normal Breath Sounds, No Accessory Muscle Use, No Respiratory Distress, Other (MID STERNUM IS VERY TENDER TO PALPATION--REPRODUCES PAIN ) Cardiovascular: Regular Rate, Rhythm, No Murmur Gastrointestinal: Non Tender, Soft Extremity: Normal Capillary Refill, Normal Range of Motion, Non Tender, No Calf Tenderness, Pedal Edema (TRACE BILATERALLY) Neurologic/Psychiatric: Alert, Oriented x3, No Motor/Sensory Deficits, Normal Mood/Affect, osteopathic neurologist II-XII Norm as Tested Skin: Normal Color, Warm/Dry, Other (FENTANYL PATCH IS ON RIGHT MID BACK, WITH EDGES ALL CURLED UP--ONLY CONTACT WITH SKIN IS APPROXMIATELY 2 CM IN CENTER OF PATCH) Progress/Results/Core Measures Results/Orders Lab Results Laboratory Tests Test 01/17/21 22:48 01/17/21 23:45 Range/Units White Blood Count 10.9 4.3-11.0 10^3/uL Red Blood Count 3.52 L 3.80-5.11 10^6/uL Hemoglobin 10.0 L 11.5-16.0 g/dL Hematocrit 32 L 35-52 % Mean Corpuscular Volume 90 80-99 fL Mean Corpuscular Hemoglobin 28 25-34 pg Mean Corpuscular Hemoglobin Concent 32 32-36 g/dL Red Cell Distribution Width 14.0 10.0-14.5 % Platelet Count 236 130-400 10^3/uL Mean Platelet Volume 9.4 9.0-12.2 fL Immature Granulocyte % (Auto) 1 % Neutrophils (%) (Auto) 64 42-75 % Lymphocytes (%) (Auto) 25 12-44 % Monocytes (%) (Auto) 9 0-12 % Eosinophils (%) (Auto) 1 0-10 % Basophils (%) (Auto) 0 0-10 % Neutrophils # (Auto) 6.9 1.8-7.8 10^3/uL Lymphocytes # (Auto) 2.7 1.0-4.0 10^3/uL Monocytes # (Auto) 1.0 0.0-1.0 10^3/uL Eosinophils # (Auto) 0.1 0.0-0.3 10^3/uL Basophils # (Auto) 0.0 0.0-0.1 10^3/uL Immature Granulocyte # (Auto) 0.1 0.0-0.1 10^3/uL Sodium Level 142 135-145 MMOL/L Potassium Level 3.2 L 3.6-5.0 MMOL/L Chloride Level 98 98-107 MMOL/L Carbon Dioxide Level 27 21-32 MMOL/L Anion Gap 17 H 5-14 MMOL/L Blood Urea Nitrogen 9 7-18 MG/DL Creatinine 1.23 0.60-1.30 MG/DL Estimat Glomerular Filtration Rate 45 BUN/Creatinine Ratio 7 Glucose Level 136 H 70-105 MG/DL Calcium Level 9.0 8.5-10.1 MG/DL Corrected Calcium 9.1 8.5-10.1 MG/DL Magnesium Level 1.4 L 1.6-2.4 MG/DL Total Bilirubin 0.6 0.1-1.0 MG/DL Aspartate Amino Transf (AST/SGOT) 18 5-34 U/L Alanine Aminotransferase (ALT/SGPT) 23 0-55 U/L Alkaline Phosphatase 68 40-136 U/L Total Creatine Kinase 104 29-168 U/L Creatine Kinase MB 1.9 <6.6 NG/ML Troponin I < 0.028 <0.028 NG/ML B-Type Natriuretic Peptide 24.1 <100.0 PG/ML Total Protein 6.5 6.4-8.2 GM/DL Albumin 3.9 3.2-4.5 GM/DL Lipase 13 8-78 U/L Urine Color YELLOW Urine Clarity SL CLOUDY Urine pH 6.0 5-9 Urine Specific [place] 1.010 L 1.016-1.022 Urine Protein NEGATIVE NEGATIVE Urine Glucose (UA) NEGATIVE NEGATIVE Urine Ketones NEGATIVE NEGATIVE Urine Nitrite NEGATIVE NEGATIVE Urine Bilirubin NEGATIVE NEGATIVE Urine Urobilinogen 0.2 < = 1.0 MG/DL Urine Leukocyte Esterase NEGATIVE NEGATIVE Urine RBC (Auto) TRACE-I H NEGATIVE Urine RBC NONE /HPF Urine WBC NONE /HPF Urine Squamous Epithelial Cells 10-25 H /HPF Urine Crystals NONE /LPF Urine Bacteria FEW H /HPF Urine Casts NONE /LPF Urine Mucus NEGATIVE /LPF Urine Culture Indicated NO Urine Opiates Screen NEGATIVE NEGATIVE Urine Oxycodone Screen NEGATIVE NEGATIVE Urine Methadone Screen NEGATIVE NEGATIVE Urine Propoxyphene Screen NEGATIVE NEGATIVE Urine Barbiturates Screen NEGATIVE NEGATIVE Ur Tricyclic Antidepressants Screen NEGATIVE NEGATIVE Urine Phencyclidine Screen NEGATIVE NEGATIVE Urine Amphetamines Screen NEGATIVE NEGATIVE Urine Methamphetamines Screen NEGATIVE NEGATIVE Urine Benzodiazepines Screen POSITIVE H NEGATIVE Urine Cocaine Screen NEGATIVE NEGATIVE Urine Cannabinoids Screen NEGATIVE NEGATIVE My Orders Orders - TIMOTHY HUGHES DO Ed Iv/Invasive Line Start (01/17/21 22:49) Ekg Tracing (01/17/21 22:49) O2 (01/17/21 22:49) Monitor-Rhythm Ecg Trace Only (01/17/21 22:49) Chest 1 View, Ap/Pa Only (01/17/21 22:49) BNP (01/17/21 22:49) Cbc With Automated Diff (01/17/21 22:49) Comprehensive Metabolic Panel (01/17/21 22:49) Creatine Kinase (01/17/21 22:49) Creatine Kinase Mb (01/17/21 22:49) Lipase (01/17/21 22:49) Magnesium (01/17/21 22:49) Troponin I (01/17/21 22:49) Code/Resuscitation (01/17/21 22:53) Lorazepam Injection (Ativan Injection) (01/17/21 23:15) Hydrocodone/Apap 5/325 Tablet (Lortab 5 (01/17/21 23:15) Drug Screen Stat (Urine) (01/17/21 23:38) Ua Culture If Indicated (01/17/21 23:38) Magnesium Oxide Tablet (Mag Ox Tablet) (01/17/21 23:45) Ondansetron Injection (Zofran Injectio (01/17/21 23:45) Potassium Chloride (Tablet) (Klor Con Ta (01/17/21 23:45) Medications Given in ED Current Medications Medications Dose Ordered Sig/Vladimir Route Start Time Stop Time Status Last Admin Dose Admin Acetaminophen/ Hydrocodone Bitart 1 ea ONCE ONCE PO 01/17/21 23:15 01/17/21 23:16 DC 01/17/21 23:23 1 EA Lorazepam 1 mg ONCE ONCE IVP 01/17/21 23:15 01/17/21 23:16 DC 01/17/21 23:23 1 MG Magnesium Oxide 1,200 mg ONCE ONCE PO 01/17/21 23:45 01/17/21 23:46 DC 01/17/21 23:57 1,200 MG Ondansetron HCl 8 mg ONCE ONCE IVP 01/17/21 23:45 01/17/21 23:47 DC 01/17/21 23:57 8 MG Potassium Chloride 20 meq ONCE ONCE PO 01/17/21 23:45 01/17/21 23:47 DC 01/17/21 23:57 20 MEQ Vital Signs/I&O 01/17/21 01/17/21 01/17/21 22:42 22:42 22:42 Temp 36.1 Pulse 92 Resp 20 B/P (MAP) 128/89 (102) Pulse Ox 96 O2 Delivery Nasal Cannula Nasal Cannula Nasal Cannula O2 Flow Rate 3.00 3.00 3.00 Progress Progress Note : Progress Note FENTANYL PATCH SECURED AND TAPED DOWN, WITH ALL OF PATCH IN FULL CONTACT WITH SKIN GIVEN ATIVAN AND HYDROCODONE NO MENTION OF CHEST PAIN OR SHORTNESS OF BREATH AT ANY TIME SINCE ARRIVAL, NOW FIXATED ON ANXIETY AND REPEATEDLY WANTING MORE ANXIETY MEDICATION GIVEN ZOFRAN FOR COMPLAINT OF NAUSEA GIVEN POTASSIUM AND MAGNESIUM PO NO VOMITING DURING ER STAY NAUSEA IMPROVED AT DISMISSAL PT RESTING QUIETLY PRIOR TO DISMISSAL. Initial ECG Impression Date: Jan 17, 2021 Initial ECG Impression Time: 22:43 Initial ECG Rate: 86 Initial ECG Rhythm: Normal Sinus Diagnostic Imaging Comments CXR--PER RADIOLOGIST REPORT AT 2333 FINDINGS: There is cardiomegaly. Hazy opacities are visualized over the lung bases representing overlapping soft tissues. No focal consolidations are seen. No pleural effusion or pneumothorax. IMPRESSION: 1. Cardiomegaly. No overt pulmonary edema. Reviewed: Reviewed by Me Departure Impression Primary Impression: Chest pain Additional Impressions: COPD (chronic obstructive pulmonary disease) Anxiety Chronic generalized pain Opiate dependence Hypomagnesemia Hypokalemia Disposition: 03 XFER SNF Condition: Improved Departure-Patient Inst. Decision time for Depature: 00:30 Referrals: [facility] (PCP/Family) Primary Care Physician Patient Instructions: Anxiety, Adult (DC), CHRONIC PAIN, Costochondritis (DC) Add. Discharge Instructions: CONTINUE REGULAR MEDICATIONS PRESCRIBED FOLLOW UP WITH DR. WOLF FOR FURTHER CARE All discharge instructions reviewed with patient and/or family. Voiced understanding. TIMOTHY HUGHES DO Jan 17, 2021 22:52
[2021-01-17] MEDS ORDERED: HYDROcodone/APAP 5 MG/325 MG (LORTAB) TAB PO ONE (23:15)
[2021-01-17] MEDS ORDERED: LORazepam INJ 2 MG/ML (ATIVAN) VIAL IVP ONE (23:15)
[2021-01-17 23:25] LABS: BASOPHILS % (AUTO) 0 % (0-10); EOSINOPHILS # (AUTO) 0.1 10^3/uL (0.0-0.3); EOSINOPHILS % (AUTO) 1 % (0-10); HEMATOCRIT 32 % (35-52); LYMPHOCYTES # (AUTO) 2.7 10^3/uL (1.0-4.0); LYMPHOCYTES % (AUTO) 25 % (12-44); MEAN CORPUSCULAR HEMOGLOBIN 28 pg (25-34); MEAN CORPUSCULAR HGB CONC 32 g/dL (32-36); MEAN CORPUSCULAR VOLUME 90 fL (80-99); MEAN PLATELET VOLUME 9.4 fL (9.0-12.2); MONOCYTES % (AUTO) 9 % (0-12); NEUTROPHILS # (AUTO) 6.9 10^3/uL (1.8-7.8); NEUTROPHILS % (AUTO) 64 % (42-75); PLATELET COUNT 236 10^3/uL (130-400); WHITE BLOOD COUNT 10.9 10^3/uL (4.3-11.0)
--- NOTE | 2021-01-17 23:26 | Diagnostic Imaging Report ---
EXAMINATION: Chest 1 view HISTORY: Chest pain. COMPARISON: 12/19/2020. FINDINGS: There is cardiomegaly. Hazy opacities are visualized over the lung bases representing overlapping soft tissues. No focal consolidations are seen. No pleural effusion or pneumothorax. IMPRESSION: 1. Cardiomegaly. No overt pulmonary edema. Dictated by: Dictated on workstation # [id number]
[2021-01-17 23:34] LABS: ALBUMIN 3.9 GM/DL (3.2-4.5); CHLORIDE 98 MMOL/L (98-107); POTASSIUM 3.2 MMOL/L (3.6-5.0); SODIUM 142 MMOL/L (135-145)
[2021-01-17 23:37] LABS: GLUCOSE 136 MG/DL (70-105); TOTAL PROTEIN 6.5 GM/DL (6.4-8.2)
[2021-01-17 23:38] LABS: CARBON DIOXIDE 27 MMOL/L (21-32)
[2021-01-17 23:39] LABS: BILIRUBIN,TOTAL 0.6 MG/DL (0.1-1.0)
[2021-01-17 23:40] LABS: ALKALINE PHOSPHATASE 68 U/L (40-136); CREATININE SERUM 1.23 MG/DL (0.60-1.30); GFR ESTIMATED 45
[2021-01-17 23:41] LABS: BUN/CREATININE RATIO 7
[2021-01-17 23:43] LABS: ALANINE AMINOTRANSFERASE 23 U/L (0-55); MAGNESIUM 1.4 MG/DL (1.6-2.4)
[2021-01-17 23:45] LABS: CREATINE KINASE 104 U/L (29-168); LIPASE 13 U/L (8-78)
[2021-01-17] MEDS ORDERED: MAGNESIUM OXIDE (MAG-OX)400 MG TAB PO ONE (23:45)
[2021-01-17] MEDS ORDERED: KCL 10 MEQ TAB (MICRO K) PO ONE (23:45)
[2021-01-17] MEDS ORDERED: ONDANSETRON 4 MG/2 ML (SDV) Z0FRAN IVP ONE (23:45)
[2021-01-17 23:49] LABS: BILIRUBIN,URINE NEGATIVE (NEGATIVE); CLARITY,URINE SL CLOUDY; COLOR,URINE YELLOW; GLUCOSE, URINE (UA) NEGATIVE (NEGATIVE); KETONES,URINE NEGATIVE (NEGATIVE); LEUKOCYTE ESTERASE ,URINE NEGATIVE (NEGATIVE); NITRITE,URINE NEGATIVE (NEGATIVE); PROTEIN,URINE NEGATIVE (NEGATIVE)
[2021-01-17 23:51] LABS: CREATINE KINASE MB 1.9 NG/ML (<6.6)
[2021-01-17 23:55] LABS: BACTERIA,URINE FEW /HPF
[2021-01-18 00:04] LABS: AMPHETAMINE SCREEN, URINE NEGATIVE (NEGATIVE); BARBITURATE SCREEN URINE NEGATIVE (NEGATIVE); BENZODIAZEPINES SCREEN URINE POSITIVE (NEGATIVE); CANNABINOID SCREEN, URINE NEGATIVE (NEGATIVE); COCAINE SCREEN URINE NEGATIVE (NEGATIVE); METHADONE STAT NEGATIVE (NEGATIVE); METHAMPHETAMINE SCREEN URINE S NEGATIVE (NEGATIVE); OPIATE SCREEN URINE NEGATIVE (NEGATIVE); OXYCODONE STAT NEGATIVE (NEGATIVE); PROPOXYPHENE STAT NEGATIVE (NEGATIVE); TRICYCLIC ANTIDEPRESSANTS SCRE NEGATIVE (NEGATIVE)
[2021-01-18 00:45] VITALS: BP 123/115
== END 2021-01-18 00:47 ==
LOC: EDUNIT# 22:42 → ER 22:44
DX: R07.9 Chest pain, unspecified (principal); J44.9 Chronic obstructive pulmonary disease, unspecified; F41.9 Anxiety disorder, unspecified; G89.29 Other chronic pain; F11.20 Opioid dependence, uncomplicated; E83.42 Hypomagnesemia; E87.6 Hypokalemia; E66.01 Morbid (severe) obesity due to excess calories; G47.30 Sleep apnea, unspecified; I11.0 Hypertensive heart disease with heart failure; I50.9 Heart failure, unspecified; E78.00 Pure hypercholesterolemia, unspecified; I25.10 Atherosclerotic heart disease of native coronary artery without angina pectoris; F31.9 Bipolar disorder, unspecified; M54.9 Dorsalgia, unspecified; E11.9 Type 2 diabetes mellitus without complications; K21.9 Gastro-esophageal reflux disease without esophagitis; F17.200 Nicotine dependence, unspecified, uncomplicated; Z68.42 Body mass index [BMI] 45.0-49.9, adult; Z79.82 Long term (current) use of aspirin; Z79.899 Other long term (current) drug therapy
CPT/HCPCS: 36415; 71045; 80053; 80306; 81000; 82550; 82553; 83690; 83735; 83880; 84484; 85025; 93005; 93041; 96374; 96375

== ENCOUNTER 2021-01-25 22:12 | Emergency (ER) | payer MEDICAID ==
[~2021-01-25] VITALS: Ht 175 cm; Wt 149.8 kg
--- NOTE | 2021-01-25 22:22 | ED Chest Pain ---
General Stated Complaint: CP Source: patient Exam Limitations: no limitations (ELLEN ACE APRN) History of Present Illness Date Seen by Provider: Jan 25, 2021 Time Seen by Provider: 22:19 Initial Comments To ER by EMS from [facility] where she resides with reports of left-sided chest pain for about 1 hour. No fever no chills no cough no increased shortness of breath. She is chronically on oxygen for her COPD. She was formerly on hospice but is now off of that though she remains DO NOT RESUSCITATE status. She denies fevers or chills. The pain is worsened by palpation and deep breathing. She does feel quite anxious. [facility] gave her hydrocodone and and Ativan within the past hour and she still feels anxious and as though that is contributing to her chest pain. 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 NTG SL RUBBER BELT SPLICER: No (ELLEN ACE APRN) Allergies and Home Medications Allergies Coded Allergies: buspirone (Verified Allergy, Mild, 05/02/17) Made"legs Shaky" amitriptyline (Verified Allergy, Unknown, 05/02/17) " MAKES ME DO WEIRD THINGS LIKE WALK IN MY SLEEP AND HAVE HALLUCINATIONS." Patient Home Medication List Home Medication List Reviewed: Yes (ELLEN ACE APRN) Albuterol Sulfate (Proventil Hfa) 6.7 Gm Hfa.aer.ad, 2 PUFF INH Q4H PRN for SHORTNESS OF BREATH, (Reported) Entered as Reported by: DANIELLE RICHARD on 07/31/20 161 Aspirin (Aspirin EC) 81 Mg Tablet.dr, 81 MG PO DAILY, (Reported) Entered as Reported by: HARSH PARRISH on 11/19/17 1603 Benzonatate (Benzonatate) 100 Mg Capsule, 100 MG PO QID, (Reported) Entered as Reported by: DANIELLE RICHARD on 07/31/20 1616 Bumetanide (Bumetanide) 1 Mg Tablet, 1 MG PO DAILY, (Reported) Entered as Reported by: DANIELLE RICHARD on 07/31/20 1616 Carvedilol (Carvedilol) 6.25 Mg Tablet, 3.125 MG PO BID WITH MEALS, (Reported) Entered as Reported by: DANIELLE RICHARD on 07/31/20 1616 Cefdinir (Cefdinir) 300 Mg Capsule, 300 MG PO BID Prescribed by: ELLEN ACE on 01/25/21 2311 Fentanyl (Fentanyl Patch 50 MCG) 1 Each Patch.td72, 50 MCG TD Q72H Prescribed by: RODY ALDANA on 12/25/20 1044 Fentanyl (Fentanyl Patch 100 MCG) 1 Each Patch.td72, 100 MCG TD Q72H Prescribed by: RODY ALDANA on 12/25/20 1044 Fluoxetine HCl (Fluoxetine HCl) 20 Mg Capsule, 20 MG PO DAILY, (Reported) Entered as Reported by: DANIELLE RICHARD on 07/31/20 1616 Glimepiride (Glimepiride) 1 Mg Tablet, 1 MG PO DAILY PRN for WHEN TAKING PREDNISONE, (Reported) Entered as Reported by: HARSH PARRISH on 04/29/17 1346 Hydrocodone/Acetaminophen (Hydrocodone-Acetamin 10-325 mg) 1 Each Tablet, 1 EA PO Q6H PRN for PAIN-MODERATE (5-7) Prescribed by: RODY ALDANA on 12/25/20 1044 Ipratropium/Albuterol Sulfate (Iprat-Albut 0.5-3(2.5) mg/3 ml) 3 Ml Ampul.neb, 3 ML IH Q6H PRN for SHORTNESS OF BREATH, (Reported) Entered as Reported by: HARSH PARRISH on 08/26/17 1605 Menthol (Biofreeze) 118 Ml Gel..ml., 1 APPLIC TP UD PRN for PAIN-BREAKTHROUGH, (Reported) Entered as Reported by: DANIELLE RICHARD on 12/18/20 1129 Multivitamin/Iron/Folic Acid (Centrum Women Tablet) 1 Each Tablet, 1 EACH PO DAILY, (Reported) Entered as Reported by: DANIELLE RICHARD on 12/18/20 1129 Nitrofurantoin Monohyd/M-Cryst (Nitrofurantoin [place]-Mcr 100 mg) 100 Mg Capsule, 1 EA PO HS, (Reported) Entered as Reported by: DANIELLE RICHARD on 12/18/20 1129 Olanzapine (Olanzapine) 10 Mg Tablet, 10 MG PO HS, (Reported) Entered as Reported by: DANIELLE RICHARD on 07/31/20 1616 Pantoprazole Sodium (Pantoprazole Sodium) 40 Mg Tablet.dr, 40 MG PO DAILY Prescribed by: RODY ALDANA on 12/25/20 1044 Potassium Chloride (Potassium Chloride) 20 Meq Tablet.er, 40 MEQ PO DAILY Prescribed by: ELLEN ACE on 01/25/21 2308 Prednisone (Prednisone) 10 Mg Tab, 10 MG PO DAILY, (Reported) Entered as Reported by: DANIELLE RICHARD on 07/31/20 1616 Promethazine HCl (Promethazine HCl) 12.5 Mg Tablet, 12.5-25 MG PO Q6H PRN for NAUSEA/VOMITING-2ND LINE, (Reported) Entered as Reported by: DANIELLE RICHARD on 07/31/20 161 Rosuvastatin Calcium (Rosuvastatin Calcium) 20 Mg Tablet, 20 MG PO HS Prescribed by: RODY ALDANA on 12/25/20 1044 [Lorazepam] 0.5 MG TABLET, 2 MG PO QID PRN for ANXIETY Prescribed by: RODY ALDANA on 12/25/20 1044 Review of Systems Review of Systems Constitutional: see HPI EENTM: No Symptoms Reported Respiratory: No Symptoms Reported Cardiovascular: See HPI, Chest Pain Gastrointestinal: No Symptoms Reported Genitourinary: No Symptoms Reported Musculoskeletal: no symptoms reported Skin: no symptoms reported Psychiatric/Neurological: No Symptoms Reported Endocrine: No Symptoms Reported Hematologic/Lymphatic: No Symptoms Reported (ELLEN ACE APRN) Past Hegoegv-Ghvlde-Adckzr Hx Immunizations Up To Date Tetanus Booster (TDap): Unknown First/Initial COVID19 Vaccinat: 08/03/20 Second COVID19 Vaccination Dustin: 08/27 (ELLEN ACE APRN) Seasonal Allergies Seasonal Allergies: No (ELLEN ACE APRN) Past Medical History Surgery/Hospitalization HX: IDDM,CHF,COPD,ANXIETY,HIGH LIPIDS Surgeries: Yes (EGD/COLONOSCOPY; CARDIAC CATH 09/18/17--NO INTERVENTION) Cardiac Respiratory: Yes (O2 AT 2-3L/NC) Pneumonia, Chronic Bronchitis, Sleep Apnea, COPD Currently Using CPAP: No Currently Using BIPAP: Yes Cardiac: Yes Cardiomyopathy, Chronic Edema/Swelling, Coronary Artery Disease, High Cholester ol, Hypertension Neurological: Yes Headaches /Migraines 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 Disorders: No 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 Disorders: Denies 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 Sexually Transmitted Disease: No HIV/AIDS: No Genitourinary: Yes Bladder Infection Gastrointestinal: Yes (GASTRITIS AND ESOPHAGEAL CANDIDIASIS 04/2017) Gastroesophageal Reflux, Gastrointestinal Bleed, Chronic Constipation, Chronic Diarrhea, Esophagitis, Ulcer Musculoskeletal: Yes (chronic shoulder and neck pain--OPIATE DEPENDENT;MINIMALLY AMBULATORY) Degenerate Disk Disease, Arthritis, Chronic Back Pain Endocrine: Yes (NIDDM; MORBID OBESITY) Diabetes, Non-Insulin dep HEENT: No Cancer: No Psychosocial: Yes (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; POLYSUBSTANCE ABUSE) Sleep Difficulties, Anxiety, Suicide Attempts, Bipolar, Depression Integumentary: No Blood Disorders: Yes (ANEMIA) Adverse Reaction/Blood Tranf: No (ELLEN ACE APRN) Family Medical History Cancer 03 MOTHER, Onset:66 (LUNG ) 09 BROTHER (LUNG ) Congestive heart failure 03 FATHER Heart Disease, Cancer SOCIAL HISTORY : -SMOKING--3-4 PPD -ETOH--DENIES USE -DRUG USE--+ 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 0.9oz. 89.146812lp; 48.55 BMI Method:Stated General Appearance: No Apparent Distress, WD/WN Neck: Normal Inspection Respiratory: No Accessory Muscle Use, No Respiratory Distress Cardiovascular: Regular Rate, Rhythm, Normal Peripheral Pulses Gastrointestinal: Normal Bowel Sounds, Non Tender, Soft Extremity: Normal Capillary Refill, Normal Inspection Neurologic/Psychiatric: Alert, Oriented x3 Skin: Normal Color, Warm/Dry (ELLEN ACE APRN) Progress/Results/Core Measures Results/Orders Lab Results Laboratory Tests Test 01/25/21 22:21 Range/Units White Blood Count 12.6 H 4.3-11.0 10^3/uL Red Blood Count 3.41 L 3.80-5.11 10^6/uL Hemoglobin 9.8 L 11.5-16.0 g/dL Hematocrit 31 L 35-52 % Mean Corpuscular Volume 90 80-99 fL Mean Corpuscular Hemoglobin 29 25-34 pg Mean Corpuscular Hemoglobin Concent 32 32-36 g/dL Red Cell Distribution Width 14.2 10.0-14.5 % Platelet Count 258 130-400 10^3/uL Mean Platelet Volume 10.0 9.0-12.2 fL Immature Granulocyte % (Auto) 1 % Neutrophils (%) (Auto) 71 42-75 % Lymphocytes (%) (Auto) 20 12-44 % Monocytes (%) (Auto) 7 0-12 % Eosinophils (%) (Auto) 1 0-10 % Basophils (%) (Auto) 0 0-10 % Neutrophils # (Auto) 9.0 H 1.8-7.8 10^3/uL Lymphocytes # (Auto) 2.5 1.0-4.0 10^3/uL Monocytes # (Auto) 0.8 0.0-1.0 10^3/uL Eosinophils # (Auto) 0.1 0.0-0.3 10^3/uL Basophils # (Auto) 0.0 0.0-0.1 10^3/uL Immature Granulocyte # (Auto) 0.2 H 0.0-0.1 10^3/uL Prothrombin Time 12.7 12.2-14.7 SEC INR Comment 0.9 0.8-1.4 Activated Partial Thromboplast Time 26 24-35 SEC Sodium Level 139 135-145 MMOL/L Potassium Level 2.9 L 3.6-5.0 MMOL/L Chloride Level 94 L 98-107 MMOL/L Carbon Dioxide Level 29 21-32 MMOL/L Anion Gap 16 H 5-14 MMOL/L Blood Urea Nitrogen 17 7-18 MG/DL Creatinine 1.30 0.60-1.30 MG/DL Estimat Glomerular Filtration Rate 42 BUN/Creatinine Ratio 13 Glucose Level 261 H 70-105 MG/DL Calcium Level 8.7 8.5-10.1 MG/DL Corrected Calcium 8.9 8.5-10.1 MG/DL Magnesium Level 1.6 1.6-2.4 MG/DL Total Bilirubin 0.2 0.1-1.0 MG/DL Aspartate Amino Transf (AST/SGOT) 18 5-34 U/L Alanine Aminotransferase (ALT/SGPT) 27 0-55 U/L Alkaline Phosphatase 76 40-136 U/L Myoglobin 77.4 10.0-92.0 NG/ML Troponin I < 0.028 <0.028 NG/ML B-Type Natriuretic Peptide 42.4 <100.0 PG/ML Total Protein 6.4 6.4-8.2 GM/DL Albumin 3.7 3.2-4.5 GM/DL (TIMOTHY HUGHES DO) Vital Signs/I&O 01/25/21 01/25/21 01/25/21 22:13 22:13 23:30 Temp 36.2 36.5 Pulse 83 90 Resp 18 18 B/P (MAP) 138/91 (107) 135/95 Pulse Ox 98 98 99 O2 Delivery Nasal Cannula Nasal Cannula Nasal Cannula O2 Flow Rate 3.00 3.00 3.00 (TIMOTHY HUGHES DO) Departure Impression Primary Impression: Anxiety Additional Impressions: Hypokalemia Chest wall pain Pneumonia Disposition: 01 HOME, SELF-CARE Condition: Stable Departure-Patient Inst. Decision time for Depature: 23:06 (ELLEN ACE APRN) Referrals: [facility] (PCP/Family) Primary Care Physician Patient Instructions: Chest Pain, Adult ED Scripts Cefdinir (Cefdinir) 300 Mg Capsule 300 MG PO BID, #14 CAP Prov: ELLEN ACE APRN 01/25/21 Potassium Chloride (Potassium Chloride) 20 Meq Tablet.er 40 MEQ PO DAILY, #14 TAB Prov: ELLEN ACE APRN 01/25/21 ATTENDING PHYSICIAN NOTE: I WAS PHYSICALLY PRESENT ER PHYSICIAN WHEN THIS PATIENT WAS IN ER, BUT I WAS NOT INVOLVED IN ANY DECISION MAKING OR ANY CARE OF THIS PATIENT. (TIMOTHY HUGHES DO) ELLEN ACE APRN Jan 25, 2021 22:22 TIMOTHY HUGHES DO Jan 28, 2021 19:42
[2021-01-25] MEDS ORDERED: ASPIRIN 81 MG CHEW (CHILDREN'S ASA) PO ONE (22:30)
[2021-01-25] MEDS ORDERED: LORazepam INJ 2 MG/ML (ATIVAN) VIAL IVP PRN (22:30)
[2021-01-25 22:31] LABS: BASOPHILS % (AUTO) 0 % (0-10); EOSINOPHILS # (AUTO) 0.1 10^3/uL (0.0-0.3); EOSINOPHILS % (AUTO) 1 % (0-10); HEMATOCRIT 31 % (35-52); HEMOGLOBIN 9.8 g/dL (11.5-16.0); LYMPHOCYTES # (AUTO) 2.5 10^3/uL (1.0-4.0); LYMPHOCYTES % (AUTO) 20 % (12-44); MEAN CORPUSCULAR HEMOGLOBIN 29 pg (25-34); MEAN CORPUSCULAR HGB CONC 32 g/dL (32-36); MEAN CORPUSCULAR VOLUME 90 fL (80-99); MONOCYTES # (AUTO) 0.8 10^3/uL (0.0-1.0); MONOCYTES % (AUTO) 7 % (0-12); NEUTROPHILS % (AUTO) 71 % (42-75); PLATELET COUNT 258 10^3/uL (130-400); WHITE BLOOD COUNT 12.6 10^3/uL (4.3-11.0)
[2021-01-25 22:39] LABS: ALBUMIN 3.7 GM/DL (3.2-4.5)
[2021-01-25 22:40] LABS: POTASSIUM 2.9 MMOL/L (3.6-5.0)
[2021-01-25 22:41] LABS: CALCIUM 8.7 MG/DL (8.5-10.1)
[2021-01-25 22:42] LABS: TOTAL PROTEIN 6.4 GM/DL (6.4-8.2)
[2021-01-25 22:44] LABS: BILIRUBIN,TOTAL 0.2 MG/DL (0.1-1.0); INR 0.9 (0.8-1.4); PROTHROMBIN TIME PATIENT 12.7 SEC (12.2-14.7)
[2021-01-25] MEDS ORDERED: KCL 20 MEQ TAB (K-DUR) PO ONE (22:45)
[2021-01-25 22:46] LABS: CREATININE SERUM 1.3 MG/DL (0.60-1.30)
[2021-01-25 22:48] LABS: MAGNESIUM 1.6 MG/DL (1.6-2.4)
--- NOTE | 2021-01-25 23:04 | Diagnostic Imaging Report ---
HISTORY: Chest pain. COMPARISON: 01/17/2021 TECHNIQUE: Frontal view of the chest. FINDINGS: There is airspace opacity in the left lung base which appears mildly increased since the prior study. There is no pleural effusion or pneumothorax. The cardiac silhouette is stable in size. IMPRESSION: 1. Increased airspace opacity in the left lung base, may represent infection in the appropriate clinical setting. Dictated by: Dictated on workstation # [id number]
[2021-01-25] MEDS ORDERED: POTA-51 PO (23:08)
[2021-01-25] MEDS ORDERED: CEFD300C3 PO (23:11)
[2021-01-25] MEDS ORDERED: methylPREDNISolone 125 MG (Solu-MEDROL) VIAL IVP ONE (23:15)
[2021-01-25] MEDS ORDERED: cefTRIAXone 1 GM PRE-MIX 50 ML IV ONE (23:15)
[2021-01-25] MEDS ORDERED: LIDOCAINE 1% INJ 20 ML 20 ML VIAL INJ ONE (23:15)
[2021-01-25] MEDS ORDERED: cefTRIAXone 1,000 MG VIAL IM ONE (23:15)
[2021-01-25 23:30] VITALS: BP 135/95
== END 2021-01-25 23:30 | disposition home or self-care (01) ==
LOC: EDUNIT# 22:12 → ER 22:14
DX: F41.9 Anxiety disorder, unspecified (principal); E87.6 Hypokalemia; R07.89 Other chest pain; J18.9 Pneumonia, unspecified organism; G47.30 Sleep apnea, unspecified; J44.9 Chronic obstructive pulmonary disease, unspecified; I10 Essential (primary) hypertension; I25.10 Atherosclerotic heart disease of native coronary artery without angina pectoris; E78.00 Pure hypercholesterolemia, unspecified; E66.01 Morbid (severe) obesity due to excess calories; E11.9 Type 2 diabetes mellitus without complications; F31.9 Bipolar disorder, unspecified; K21.9 Gastro-esophageal reflux disease without esophagitis; G89.29 Other chronic pain; M54.9 Dorsalgia, unspecified; Z68.42 Body mass index [BMI] 45.0-49.9, adult; Z79.82 Long term (current) use of aspirin; Z79.899 Other long term (current) drug therapy
CPT/HCPCS: 36415; 71045; 80053; 83735; 83874; 83880; 84484; 85025; 85610; 85730; 93005; 93041

== ENCOUNTER → 2021-02-04 | Outpatient (CLI) | payer MEDICAID ==
[~2021-02-04] MED LIST changes: +CATHETER FLUSH 10 ML SYR IV PRN; +CEFD300C3 PO; -FLUO20CA46 PO; +FLUO20CA48 PO; +POTA-51 PO; -POTA10TA36 PO; +POTA10TA37 PO; +REGADENOSON 0.4 MG/5 ML SYR (LEXISCAN) IV ONE
[2021-02-04 09:20] VITALS: BP 152/105
--- NOTE | 2021-02-04 11:50 | Cardiology Stress Test Report ---
Stress Test Report Date of Procedure/Referring: Date of Procedure: Feb 04, 2021 PCP Francesco Auguste MD Admitting [facility] Indications: CP Baseline Heart Rate: 93 Baseline Blood Pressure: Blood Pressure Systolic: 152 Blood Pressure Diastolic: 105 Baseline Vitals Vital Signs Date Time Temp Pulse Resp B/P (MAP) Pulse Ox O2 Delivery O2 Flow Rate FiO2 02/04/21 09:20 90 18 152/105 (121) 96 Room Air Baseline EKG: Baseline EKG: NSR Summary After explaining the procedure to the patient, she signed a consent and then brought to the stress nuclear laboratory. Patient received 0.4 mg Lexiscan for stress test, ECG, heart rate and blood pressure were monitored continuously. Resting and stress dose of radio tracer were injected, imaging was acquired and reviewed in short axis, horizontal long axis and vertical long axis views. TID: 1.08 SSS: 8 SDS: 6 EF: 51 1. Patient tolerated Lexiscan well 2. Breast attenuation with reversible ischemia involving the whole anterior wall and anterolateral wall 3. Normal left ventricular size, EF 51% FRANCESCO AUGUSTE MD Feb 04, 2021 11:50
== END ==
LOC: CARD 07:30
PROVIDERS: ATTEND Internal Medicine Cardiovascular Disease
DX: I25.10 Atherosclerotic heart disease of native coronary artery without angina pectoris (principal); I10 Essential (primary) hypertension
CPT/HCPCS: 78452; 93017

== ENCOUNTER 2021-02-07 22:46 | Emergency (ER) | payer MEDICAID ==
[~2021-02-07 22:46] MED LIST changes: -CATHETER FLUSH 10 ML SYR IV PRN; -REGADENOSON 0.4 MG/5 ML SYR (LEXISCAN) IV ONE
[2021-02-07] MEDS ORDERED: NS IV 500 ML 500 ML IV SCH (23:00)
[2021-02-07] MEDS ORDERED: ONDANSETRON 4 MG/2 ML (SDV) Z0FRAN IV PRN (23:00)
[2021-02-07] MEDS ORDERED: fentaNYL INJ 100 MCG/2 ML AMP IVP ONE (23:00)
[2021-02-07] MEDS ORDERED: methylPREDNISolone 125 MG (Solu-MEDROL) VIAL IVP ONE (23:00)
--- NOTE | 2021-02-07 23:07 | ED Chest Pain ---
General Stated Complaint: CP Source: patient, EMS, residential records Exam Limitations: no limitations History of Present Illness Date Seen by Provider: Feb 07, 2021 Time Seen by Provider: 22:42 Initial Comments Patient ER by EMS from [facility] and rehab with chief complaint of allover 8 out of 10 chest pain starting just this evening about an hour or 2 ago, increasing shortness of air, oxygen saturation of 80%, O2 from 2 L up to 6 L and fever chills nausea and suprapubic pain and dysuria. She was diagnosed with COVID-19 yesterday and got monoclonal antibodies this morning. No productive cough or wheezing. She did a breathing treatment which did not help with her shortness of air. She has a history of heart failure, coronary disease, COPD. She was recently on hospice for her end-stage lung and heart disease but took herself off of it. She took a hydrocodone earlier and said it only helped a little bit. She had a fever of 102 per EMS when they picked her up and had taken a Tylenol 650 mg just prior to their arrival at the residential. She is on chronic steroids for her COPD. Patient denies any increased swelling or weight gain. She states that her Bumex has been making her urinate normally Allergies and Home Medications Allergies Coded Allergies: buspirone (Verified Allergy, Mild, 05/02/17) Made"legs Shaky" amitriptyline (Verified Allergy, Unknown, 05/02/17) " MAKES ME DO WEIRD THINGS LIKE WALK IN MY SLEEP AND HAVE HALLUCINATIONS." Patient Home Medication List Home Medication List Reviewed: Yes Albuterol Sulfate (Proventil Hfa) 6.7 Gm Hfa.aer.ad, 2 PUFF INH Q4H PRN for SHORTNESS OF BREATH, (Reported) Entered as Reported by: DANIELLE RICHARD on 07/31/20 1616 Aspirin (Aspirin EC) 81 Mg Tablet.dr, 81 MG PO DAILY, (Reported) Entered as Reported by: HARSH PARRISH on 11/19/17 1603 Benzonatate (Benzonatate) 100 Mg Capsule, 100 MG PO QID, (Reported) Entered as Reported by: DANIELLE RICHARD on 07/31/20 1616 Bumetanide (Bumetanide) 1 Mg Tablet, 1 MG PO DAILY, (Reported) Entered as Reported by: DANIELLE RICHARD on 07/31/20 1616 Carvedilol (Carvedilol) 6.25 Mg Tablet, 3.125 MG PO BID WITH MEALS, (Reported) Entered as Reported by: DANIELLE RICHARD on 07/31/20 1616 Cefdinir (Cefdinir) 300 Mg Capsule, 300 MG PO BID Prescribed by: ELLEN ACE on 01/25/21 2311 Fentanyl (Fentanyl Patch 50 MCG) 1 Each Patch.td72, 50 MCG TD Q72H Prescribed by: RODY ALDANA on 12/25/20 1044 Fentanyl (Fentanyl Patch 100 MCG) 1 Each Patch.td72, 100 MCG TD Q72H Prescribed by: RODY ALDANA on 12/25/20 1044 Fluoxetine HCl (Fluoxetine HCl) 20 Mg Capsule, 20 MG PO DAILY, (Reported) Entered as Reported by: DANIELLE RICHARD on 07/31/20 1616 Glimepiride (Glimepiride) 1 Mg Tablet, 1 MG PO DAILY PRN for WHEN TAKING PREDNISONE, (Reported) Entered as Reported by: HARSH PARRISH on 04/29/17 1346 Hydrocodone/Acetaminophen (Hydrocodone-Acetamin 10-325 mg) 1 Each Tablet, 1 EA PO Q6H PRN for PAIN-MODERATE (5-7) Prescribed by: RODY ALDANA on 12/25/20 1044 Ipratropium/Albuterol Sulfate (Iprat-Albut 0.5-3(2.5) mg/3 ml) 3 Ml Ampul.neb, 3 ML IH Q6H PRN for SHORTNESS OF BREATH, (Reported) Entered as Reported by: HARSH PARRISH on 08/26/17 1605 Menthol (Biofreeze) 118 Ml Gel..ml., 1 APPLIC TP UD PRN for PAIN-BREAKTHROUGH, (Reported) Entered as Reported by: DANIELLE RICHARD on 12/18/20 1129 Multivitamin/Iron/Folic Acid (Centrum Women Tablet) 1 Each Tablet, 1 EACH PO DAILY, (Reported) Entered as Reported by: DANIELLE RICHARD on 12/18/20 1129 Nitrofurantoin Monohyd/M-Cryst (Nitrofurantoin [place]-Mcr 100 mg) 100 Mg Capsule, 1 EA PO HS, (Reported) Entered as Reported by: DANIELLE RICHARD on 12/18/20 1129 Olanzapine (Olanzapine) 10 Mg Tablet, 10 MG PO HS, (Reported) Entered as Reported by: DANIELLE RICHARD on 07/31/20 1616 Pantoprazole Sodium (Pantoprazole Sodium) 40 Mg Tablet.dr, 40 MG PO DAILY Prescribed by: RODY ALDANA on 12/25/20 1044 Potassium Chloride (Potassium Chloride) 20 Meq Tablet.er, 40 MEQ PO DAILY Prescribed by: ELLEN ACE on 01/25/21 2308 Prednisone (Prednisone) 10 Mg Tab, 10 MG PO DAILY, (Reported) Entered as Reported by: DANIELLE RICHARD on 07/31/20 1616 Promethazine HCl (Promethazine HCl) 12.5 Mg Tablet, 12.5-25 MG PO Q6H PRN for NAUSEA/VOMITING-2ND LINE, (Reported) Entered as Reported by: DANIELLE RICHARD on 07/31/20 1616 Rosuvastatin Calcium (Rosuvastatin Calcium) 20 Mg Tablet, 20 MG PO HS Prescribed by: RODY ALDANA on 12/25/20 1044 [Lorazepam] 0.5 MG TABLET, 2 MG PO QID PRN for ANXIETY Prescribed by: RODY ALDANA on 12/25/20 1044 Review of Systems Review of Systems Constitutional: No chills, No diaphoresis EENTM: No Blurred Vision, No Double Vision Respiratory: Cough, Shortness of Air; Denies Wheezing Cardiovascular: Chest Pain; Denies Lightheadedness Gastrointestinal: Abdominal Pain; Denies Constipated, Denies Diarrhea; Nausea, Poor Fluid Intake; Denies Vomiting Genitourinary: Burning; Denies Discharge Musculoskeletal: No back pain, No joint pain Psychiatric/Neurological: Denies Anxiety, Denies Depressed All Other Systems Reviewed Negative Unless Noted: Yes Past Zisyaqx-Suyzgs-Fozith Hx Patient Social History Tobacco Use?: No Smoking Status: Former Smoker Use of E-Cig and/or Vaping dev: No Substance use?: No Immunizations Up To Date Tetanus Booster (TDap): Unknown First/Initial COVID19 Vaccinat: 08/03/20 Second COVID19 Vaccination Dustin: 08/27 Seasonal Allergies Seasonal Allergies: No Past Medical History Surgery/Hospitalization HX: IDDM,CHF,COPD,ANXIETY,HIGH LIPIDS Surgeries: Yes (EGD/COLONOSCOPY; CARDIAC CATH 09/18/17--NO INTERVENTION) Cardiac Respiratory: Yes (O2 AT 2-3L/NC) Pneumonia, Chronic Bronchitis, Sleep Apnea, COPD Currently Using CPAP: No Currently Using BIPAP: Yes Cardiac: Yes Cardiomyopathy, Chronic Edema/Swelling, Coronary Artery Disease, High Cholesterol, Hypertension Neurological: Yes Headaches /Migraines 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 Disorders: No 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 Disorders: Denies 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 Sexually Transmitted Disease: No HIV/AIDS: No Genitourinary: Yes Bladder Infection Gastrointestinal: Yes (GASTRITIS AND ESOPHAGEAL CANDIDIASIS 04/2017) Gastroesophageal Reflux, Gastrointestinal Bleed, Chronic Constipation, Chronic Diarrhea, Esophagitis, Ulcer Musculoskeletal: Yes (chronic shoulder and neck pain--OPIATE DEPENDENT;MINIMALLY AMBULATORY) Degenerate Disk Disease, Arthritis, Chronic Back Pain Endocrine: Yes (NIDDM; MORBID OBESITY) Diabetes, Non-Insulin dep HEENT: No Cancer: No Psychosocial: Yes (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; POLYSUBSTANCE ABUSE) Sleep Difficulties, Anxiety, Suicide Attempts, Bipolar, Depression Integumentary: No Blood Disorders: Yes (ANEMIA) Adverse Reaction/Blood Tranf: No Family Medical History Cancer 03 MOTHER, Onset:66 (LUNG ) 09 BROTHER (LUNG ) Congestive heart failure 03 FATHER Heart Disease, Cancer SOCIAL HISTORY : -SMOKING--3-4 PPD -ETOH--DENIES USE -DRUG USE--+ 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 0.9oz. [id number]; 48.00 BMI Method:Stated General Appearance: Anxious, Chronically ill, Moderate Distress, Obese HEENT: PERRL/EOMI, Pharynx Normal, Moist Mucous Membranes Neck: Full Range of Motion, Normal Inspection Respiratory: Lungs Clear, Normal Breath Sounds, No Accessory Muscle Use, No Respiratory Distress Cardiovascular: Regular Rate, Rhythm, Normal Peripheral Pulses, Tachycardia Gastrointestinal: Normal Bowel Sounds, Soft, Tenderness (Suprapubic) Extremity: Normal Capillary Refill, Normal Inspection, No Pedal Edema Neurologic/Psychiatric: Alert, Oriented x3 Skin: Normal Color, Warm/Dry Focused Exam Lactate Level 02/07/21 23:25: Lactic Acid Level 0.84 Lactic Acid Level Laboratory Tests Test 02/07/21 23:25 Lactic Acid Level 0.84 MMOL/L (0.50-2.00) Progress/Results/Core Measures Results/Orders Lab Results Laboratory Tests Test 02/07/21 22:56 02/07/21 23:10 02/07/21 23:25 02/08/21 03:25 Range/Units Urine Color YELLOW Urine Clarity CLEAR Urine pH 6.0 5-9 Urine Specific Felt 1.015 L 1.016-1.022 Urine Protein NEGATIVE NEGATIVE Urine Glucose (UA) NEGATIVE NEGATIVE Urine Ketones NEGATIVE NEGATIVE Urine Nitrite NEGATIVE NEGATIVE Urine Bilirubin NEGATIVE NEGATIVE Urine Urobilinogen 0.2 < = 1.0 MG/DL Urine Leukocyte Esterase NEGATIVE NEGATIVE Urine RBC (Auto) TRACE-I H NEGATIVE Urine RBC 0-2 /HPF Urine WBC NONE /HPF Urine Squamous Epithelial Cells 0-2 /HPF Urine Crystals NONE /LPF Urine Bacteria TRACE /HPF Urine Casts NONE /LPF Urine Mucus NEGATIVE /LPF Urine Culture Indicated CULTURE PENDING Blood Gas Puncture Site RR Blood Gas Patient Temperature 101 Arterial Blood pH 7.40 7.37-7.43 Arterial Blood Partial Pressure CO2 52 H 35-45 MMHG Arterial Blood Partial Pressure O2 148 H 79-93 MMHG Arterial Blood HCO3 31 H 23-27 MMOL/L Arterial Blood Total CO2 32.2 H 21.0-31.0 MMOL/L Arterial Blood Oxygen Saturation 99 94-100 % Arterial Blood Base Excess 6.2 H -2.5-2.5 MMOL/L Torsten Test YES-POS Blood Gas Ventilator Setting NO Blood Gas Inspired Oxygen 5L White Blood Count 9.4 4.3-11.0 10^3/uL Red Blood Count 3.70 L 3.80-5.11 10^6/uL Hemoglobin 10.6 L 11.5-16.0 g/dL Hematocrit 33 L 35-52 % Mean Corpuscular Volume 90 80-99 fL Mean Corpuscular Hemoglobin 29 25-34 pg Mean Corpuscular Hemoglobin Concent 32 32-36 g/dL Red Cell Distribution Width 14.6 H 10.0-14.5 % Platelet Count 219 130-400 10^3/uL Mean Platelet Volume 9.9 9.0-12.2 fL Immature Granulocyte % (Auto) 0 % Neutrophils (%) (Auto) 70 42-75 % Lymphocytes (%) (Auto) 17 12-44 % Monocytes (%) (Auto) 12 0-12 % Eosinophils (%) (Auto) 0 0-10 % Basophils (%) (Auto) 0 0-10 % Neutrophils # (Auto) 6.6 1.8-7.8 10^3/uL Lymphocytes # (Auto) 1.6 1.0-4.0 10^3/uL Monocytes # (Auto) 1.2 H 0.0-1.0 10^3/uL Eosinophils # (Auto) 0.0 0.0-0.3 10^3/uL Basophils # (Auto) 0.0 0.0-0.1 10^3/uL Immature Granulocyte # (Auto) 0.0 0.0-0.1 10^3/uL Prothrombin Time 12.4 12.2-14.7 SEC INR Comment 0.9 0.8-1.4 Activated Partial Thromboplast Time 31 24-35 SEC D-Dimer 0.50 H 0.00-0.49 UG/ML Sodium Level 136 135-145 MMOL/L Potassium Level 3.0 L 3.6-5.0 MMOL/L Chloride Level 96 L 98-107 MMOL/L Carbon Dioxide Level 27 21-32 MMOL/L Anion Gap 13 5-14 MMOL/L Blood Urea Nitrogen 10 7-18 MG/DL Creatinine 1.08 0.60-1.30 MG/DL Estimat Glomerular Filtration Rate 52 BUN/Creatinine Ratio 9 Glucose Level 132 H 70-105 MG/DL Lactic Acid Level 0.84 0.50-2.00 MMOL/L Calcium Level 9.1 8.5-10.1 MG/DL Corrected Calcium 9.3 8.5-10.1 MG/DL Magnesium Level 1.2 L 1.6-2.4 MG/DL Total Bilirubin 0.3 0.1-1.0 MG/DL Aspartate Amino Transf (AST/SGOT) 29 5-34 U/L Alanine Aminotransferase (ALT/SGPT) 44 0-55 U/L Alkaline Phosphatase 64 40-136 U/L Troponin I < 0.028 < 0.028 <0.028 NG/ML C-Reactive Protein High Sensitivity 4.01 H 0.00-0.50 MG/DL B-Type Natriuretic Peptide 50.0 <100.0 PG/ML Total Protein 6.2 L 6.4-8.2 GM/DL Albumin 3.7 3.2-4.5 GM/DL Procalcitonin 0.13 H <0.10 NG/ML My Orders Orders - ABIGAIL PASCUAL Ns Iv 500 Ml (Sodium Chloride 0.9%) (02/07/21 23:00) Cbc With Automated Diff (02/07/21:56) Comprehensive Metabolic Panel (02/07/21 22:56) Blood Culture (02/07/21:56) Sputum Culture (02/07/21:56) Urinalysis (02/07/21:56) Urine Culture (02/07/21:56) Protime With Inr (02/07/21:56) Partial Thromboplastin Time (02/07/21:56) Chest 1 View, Ap/Pa Only (02/07/21:56) Ed Iv/Invasive Line Start (02/07/21:56) Ed Iv/Invasive Line Start (02/07/21:56) Ekg Tracing (02/07/21:56) Troponin I Jame (02/07/21 22:56) Vital Signs Adult Sepsis Patie Q15M (02/07/21 22:56) Ondansetron Injection (Zofran Injectio (02/07/21 23:00) O2 (02/07/21:56) Remove Rings In Anticipation O (02/07/21:56) Lactic Acid Analyzer (02/07/21:56) Fentanyl Inj (Sublimaze Injection) (02/07/21 23:00) Methylprednisolone Sod Succ (Solu-Medrol (02/07/21 23:00) Arterial Blood Gas (02/07/21 22:56) Catheter(Urinary) Insert & Ass 03,15 (02/07/21 22:56) Bnp [place] (02/07/21 23:01) Hs C Reactive Protein (02/07/21 23:01) Procalcitonin (Pct) (02/07/21 23:01) Fibrin Degradation Products (02/07/21 23:01) Potassium Cl 10meq/50ml Ivpb (Kcl 10 Meq (02/08/21 00:30) Magnesium (02/08/21 00:18) Ibuprofen Tablet (Motrin Tablet) (02/08/21 00:45) Ns Iv 500 Ml (Sodium Chloride 0.9%) (02/08/21 00:45) Magnesium 1 Gm/100 Ml Ivpb (Magnesium [place] (02/08/21 01:30) Troponin I [place] (02/08/21 02:47) Covid-19 External Lab Results (02/08/21 03:10) Isolation Central Supply Req (02/08/21 03:10) Medications Given in ED Current Medications Medications Dose Ordered Sig/Vladimir Route Start Time Stop Time Status Last Admin Dose Admin Fentanyl Citrate 75 mcg ONCE ONCE IVP 02/07/21 23:00 02/07/21 23:01 DC 02/07/21 23:10 75 MCG Ibuprofen 800 mg ONCE ONCE PO 02/08/21 00:45 02/08/21 00:46 DC 02/08/21 01:05 800 MG Methylprednisolone Sodium Succinate 125 mg ONCE ONCE IVP 02/07/21 23:00 02/07/21 23:01 DC 02/07/21 23:10 125 MG Ondansetron HCl 8 mg PRN PRN IV 02/07/21 23:00 02/07/21 23:11 DC 02/07/21 23:10 8 MG Potassium Chloride 50 ml @ 50 mls/hr ONCE ONCE IV 02/08/21 00:30 02/08/21 01:30 DC 02/08/21 01:05 50 MLS/HR Sodium Chloride 500 ml @ 0 mls/hr Q0M ONCE IV 02/08/21 00:45 02/08/21 00:46 DC 02/08/21 01:05 250 MLS/HR Vital Signs/I&O 02/07/21 02/07/21 02/07/21 22:46 22:46 22:46 Temp 38.7 Pulse 103 Resp 22 B/P (MAP) 130/87 (101) Pulse Ox 97 O2 Delivery Nasal Cannula Nasal Cannula Nasal Cannula O2 Flow Rate 5.00 3.00 5.00 Progress Progress Note #1: Time: 23:05 Progress Note Septic work-up. We are going to hold off giving a lot of fluids as she has a history of heart failure as well as she has known Covid and keeping her dry is a desirable strategy. We will also going to hold off on antibiotics and SVC evidence of a secondary bacterial infection. We will get labs include CRP, procalcitonin, D-dimer, urinalysis and put a Liang catheter in her as she is going to be limited with her mobility. We will give her aspirin to chew and swallow. We are not willing to give her any nitroglycerin as her chest pain is reproducible on palpation of her chest and all over. We will give her 75 mcg of fentanyl for her discomfort. Zofran, 500 cc of normal saline. 125 mg Solu- Medrol and get an ABG as well as chest x-ray. Because of her increasing oxygen demand is very likely she will need to stay in the hospital. Progress Note #2: Time: 00:19 Progress Note Nausea is improved. She is not having any retching or vomiting. Her pain has improved. We will check a magnesium give her some potassium and turn her oxygen back down to her normal 3 L as her PaO2 is 140 something. She certainly has a lot of anxiety and this may be driving some of her breathlessness. Her BNP is 50 so we will give her another 500 cc of fluid to ride in with the potassium. Her troponin is negative so we will repeat it at 3:00 in the morning. Markers of inflammation are marginally elevated but not consistent with a large pneumonia so I suspected that the mass seen on chest x-ray may not be bacterial pneumonia. Pulmonary embolism is ruled out by the age did just do a D-dimer score of 0.5. Progress Note #3: Time: 04:07 Progress Note Patient's troponin is continually undetectable on a delta troponin. Her oxygen saturations are normal on baseline oxygen use. Her otherwise unremarkable labs are reassuring. Her chest x-ray is unchanged. She can follow-up with a CT later for the nodule seen in her chest x-ray. Her symptoms are consistent with COVID-19. We will have her take some magnesium and potassium to replace her electrolyte deficiencies in the residential. Since she is not requiring any additional oxygen beyond what she typically takes she does not need to be on steroids. Initial ECG Impression Date: Feb 07, 2021 Initial ECG Impression Time: 22:51 Initial ECG Rate: 102 Initial ECG Rhythm: S.Tach Initial ECG Intervals: Normal Initial ECG Impression: Normal Initial ECG Comparisson: Unchanged Comment Sinus tachycardia without clinically relevant ST changes Diagnostic Imaging Diagonstic Imaging: Xray Plain Films/CT/US/NM/MRI: chest Comments [facility] [place], [place] NAME: [facility] REC#: [id number] PT STATUS: REG ER : 1965 PHYSICIAN: ABIGAIL PASCUAL MD ADMIT DATE: 02/07/21/ER Draft Date of Exam:02/07/21 CHEST 1 VIEW, AP/PA ONLY INDICATION: Cough and shortness of breath, Covid positive Frontal chest obtained at 1132 p.m. and is compared to 01/25/2021. Heart is mildly enlarged. The lung bases are poorly seen due to technique. There is persistent opacity in the left midlung. There is no pneumothorax or gross pleural fluid. IMPRESSION: Persistent opacity in the left midlung is present, with poor visualization of the lung bases due to technique. Continued follow-up is recommended. Dictated on workstation # [id number] Dict: 02/08/21 0000 Trans: 02/08/21 0008 [id number] Interpreted by: SERGIO NAVARRO MD Electronically signed by: Reviewed: Reviewed by Me Departure Impression Primary Impression: COVID-19 Additional Impressions: Chronic respiratory failure Qualified Codes: J96.11 - Chronic respiratory failure with hypoxia; J96.12 - Chronic respiratory failure with hypercapnia Hypokalemia Hypomagnesemia Disposition: 01 HOME, SELF-CARE Condition: Stable Departure-Patient Inst. Decision time for Depature: 04:07 Ref[place]: [facility] [place] Primary Care Physician Patient Instructions: COVID-19 (DC) Add. Discharge Instructions: Magnesium oxide 400 mg twice a day for the next 3 days. In addition to your scheduled potassium take another 40 mEq twice a day for 7 days. Return to the ER for consistent, resting oxygen saturations below 90% while on room 6 L per nasal cannula. Scripts Potassium Chloride (K-Tab ER) 20 Meq Tablet.er 40 MEQ PO BID for 7 Days, #28 TAB 0 Refills Prov: ABIGAIL PASCUAL 02/08/21 Magnesium Oxide (Magnesium Oxide) 400 Mg Tablet 400 MG PO BID for 3 Days, #6 TAB 0 Refills Prov: ABIGAIL PASCUAL 02/08/21 ABIGAIL PASCUAL Feb 07, 2021 23:07
[2021-02-07 23:17] LABS: ABG BASE EXCESS 6.2 MMOL/L (-2.5-2.5); ABG OXYGEN SATURATION 99 % (94-100); ABG PCO2 52 MMHG (35-45); ABG PO2 148 MMHG (79-93); ABG TCO2 32.2 MMOL/L (21.0-31.0)
[2021-02-07 23:19] LABS: ALLENS TEST YES-POS; INSPIRED O2 5L; PATIENT TEMP 101; VENTILATOR NO
[2021-02-07 23:35] LABS: BASOPHILS % (AUTO) 0 % (0-10); EOSINOPHILS % (AUTO) 0 % (0-10); HEMATOCRIT 33 % (35-52); HEMOGLOBIN 10.6 g/dL (11.5-16.0); LYMPHOCYTES # (AUTO) 1.6 10^3/uL (1.0-4.0); LYMPHOCYTES % (AUTO) 17 % (12-44); MEAN CORPUSCULAR HEMOGLOBIN 29 pg (25-34); MEAN CORPUSCULAR HGB CONC 32 g/dL (32-36); MEAN CORPUSCULAR VOLUME 90 fL (80-99); MEAN PLATELET VOLUME 9.9 fL (9.0-12.2); MONOCYTES # (AUTO) 1.2 10^3/uL (0.0-1.0); MONOCYTES % (AUTO) 12 % (0-12); NEUTROPHILS # (AUTO) 6.6 10^3/uL (1.8-7.8); NEUTROPHILS % (AUTO) 70 % (42-75); PLATELET COUNT 219 10^3/uL (130-400); WHITE BLOOD COUNT 9.4 10^3/uL (4.3-11.0)
[2021-02-07 23:41] LABS: BILIRUBIN,URINE NEGATIVE (NEGATIVE); CLARITY,URINE CLEAR; COLOR,URINE YELLOW; GLUCOSE, URINE (UA) NEGATIVE (NEGATIVE); KETONES,URINE NEGATIVE (NEGATIVE); LEUKOCYTE ESTERASE ,URINE NEGATIVE (NEGATIVE); NITRITE,URINE NEGATIVE (NEGATIVE); PROTEIN,URINE NEGATIVE (NEGATIVE)
[2021-02-07 23:46] LABS: ALBUMIN 3.7 GM/DL (3.2-4.5); CHLORIDE 96 MMOL/L (98-107); SODIUM 136 MMOL/L (135-145)
[2021-02-07 23:47] LABS: CALCIUM 9.1 MG/DL (8.5-10.1)
[2021-02-07 23:49] LABS: GLUCOSE 132 MG/DL (70-105); TOTAL PROTEIN 6.2 GM/DL (6.4-8.2)
[2021-02-07 23:50] LABS: BILIRUBIN,TOTAL 0.3 MG/DL (0.1-1.0); CARBON DIOXIDE 27 MMOL/L (21-32); FIBRIN DEGRADATION PRODUCTS 0.5 UG/ML (0.00-0.49); INR 0.9 (0.8-1.4); PROTHROMBIN TIME PATIENT 12.4 SEC (12.2-14.7)
[2021-02-07 23:52] LABS: ALKALINE PHOSPHATASE 64 U/L (40-136); CREATININE SERUM 1.08 MG/DL (0.60-1.30); GFR ESTIMATED 52
[2021-02-07 23:54] LABS: BACTERIA,URINE TRACE /HPF; RBC,URINE 0-2 /HPF; SQUAMOUS EPITHELIAL CELL,UR 0-2 /HPF
[2021-02-07 23:54] LABS: BUN/CREATININE RATIO 9
[2021-02-07 23:55] LABS: ALANINE AMINOTRANSFERASE 44 U/L (0-55)
--- NOTE | 2021-02-08 00:09 | Diagnostic Imaging Report ---
INDICATION: Cough and shortness of breath, Covid positive Frontal chest obtained at 1132 p.m. and is compared to 01/25/2021. Heart is mildly enlarged. The lung bases are poorly seen due to technique. There is persistent opacity in the left midlung. There is no pneumothorax or gross pleural fluid. IMPRESSION: Persistent opacity in the left midlung is present, with poor visualization of the lung bases due to technique. Continued follow-up is recommended. Dictated by: Dictated on workstation # [id number]
[2021-02-08] MEDS ORDERED: POTASSIUM CL 10MEQ/50ML IVPB 50 ML IV ONE (00:30)
[2021-02-08] MEDS ORDERED: IBUPROFEN 800 MG (MOTRIN) TAB PO ONE (00:45)
[2021-02-08] MEDS ORDERED: NS IV 500 ML 500 ML IV ONE (00:45)
[2021-02-08] MEDS ORDERED: MAGNESIUM 1 GM/100 ML IVPB 100 ML IV ONE (01:30)
[2021-02-08] MEDS ORDERED: MGX400T PO (04:13)
[2021-02-08] MEDS ORDERED: POTA-53 PO (04:13)
[2021-02-08 05:05] VITALS: BP 134/85
== END 2021-02-08 05:05 | disposition home or self-care (01) ==
LOC: EDUNIT# 22:46 → ER 22:48
DX: R91.8 Other nonspecific abnormal finding of lung field (principal); U07.1 COVID-19
CPT/HCPCS: 36415; 51702; 71045; 80053; 81000; 82805; 83605; 83735; 83880; 84145; 84484; 85025; 85379; 85610; 85730; 86141; 87040; 87088; 93005; 96361; 96374; 96375

== ENCOUNTER 2021-02-26 23:32 | Emergency (ER) | payer MEDICAID ==
[~2021-02-26 23:32] MED LIST changes: +MGX400T PO; +POTA-53 PO
[2021-02-26] MEDS ORDERED: ASPIRIN 81 MG CHEW (CHILDREN'S ASA) PO STA (23:58)
[2021-02-26] MEDS ORDERED: LORazepam 0.5 MG (ATIVAN) TABLET PO STA (23:58)
[2021-02-27] MEDS ORDERED: RT-ALBUTEROL SULF 2.5 MG/3 ML PRE-MIX VIAL INH ONE
--- NOTE | 2021-02-27 00:03 | ED Chest Pain ---
General Chief Complaint: Chest Pain Stated Complaint: ANXIETY,CP Source: patient Exam Limitations: no limitations History of Present Illness Date Seen by Provider: Feb 27, 2021 Time Seen by Provider: 00:00 Initial Comments Patient is a 56-year-old female with a history of cardiomyopathy and COPD who presents to the emergency room by ambulance from a local senior care with a chief complaint of sharp midsternal chest pain that started about 2 hours prior to arrival. Patient states she was given a hydrocodone by senior care staff but she cannot remember what time. She was also given some Ativan at 7 PM she states. She denies any associated symptoms of nausea, diaphoresis. She is short of breath. She tells me she is on oxygen all the time at 3 to 4 L. She does not smoke cigarettes but continues to "vape". She recently had Covid at the beginning of the month. She does have a slight cough that is nonproductive. She denies any swelling in her legs or history of blood clots. No problems with bowel or bladder. She states it hurts worse when she takes a deep breath as well as when she pushes on her chest wall. The pain does not radiate. Per review of the medical record the patient had a chemical stress test at the end of January that looked good. She was cathed in 2018 and had a 50% stenosis of one artery that did not require intervention. She is currently asking for medication for her anxiety All other review of systems reviewed and negative except as stated Timing/Duration: 1-3 hours Severity/Quality: moderate, sharp Location: central Radiation: no radiation Prior CP/Workup: cardiac cath, cardiolye scan, echocardiography Modifying Factors: worse with breathing, worse with palpation ASA po RESEARCH ANTHROPOLOGIST: No NTG SL RESEARCH ANTHROPOLOGIST: No Allergies and Home Medications Allergies Coded Allergies: buspirone (Verified Allergy, Mild, 05/02/17) Made"legs Shaky" amitriptyline (Verified Allergy, Unknown, 05/02/17) " MAKES ME DO WEIRD THINGS LIKE WALK IN MY SLEEP AND HAVE HALLUCINATIONS." Patient Home Medication List Home Medication List Reviewed: Yes Albuterol Sulfate (Proventil Hfa) 6.7 Gm Hfa.aer.ad, 2 PUFF INH Q4H PRN for SHORTNESS OF BREATH, (Reported) Entered as Reported by: DANIELLE RICHARD on 07/31/20 1616 Aspirin (Aspirin EC) 81 Mg Tablet.dr, 81 MG PO DAILY, (Reported) Entered as Reported by: HARSH PARRISH on 11/19/17 1603 Benzonatate (Benzonatate) 100 Mg Capsule, 100 MG PO QID, (Reported) Entered as Reported by: DANIELLE RICHARD on 07/31/20 1616 Bumetanide (Bumetanide) 1 Mg Tablet, 1 MG PO DAILY, (Reported) Entered as Reported by: DANIELLE RICHARD on 07/31/20 1616 Carvedilol (Carvedilol) 6.25 Mg Tablet, 3.125 MG PO BID WITH MEALS, (Reported) Entered as Reported by: DANIELLE RICHARD on 07/31/20 1616 Cefdinir (Cefdinir) 300 Mg Capsule, 300 MG PO BID Prescribed by: ELLEN ACE on 01/25/21 2311 Fentanyl (Fentanyl Patch 50 MCG) 1 Each Patch.td72, 50 MCG TD Q72H Prescribed by: RODY ALDANA on 12/25/20 1044 Fentanyl (Fentanyl Patch 100 MCG) 1 Each Patch.td72, 100 MCG TD Q72H Prescribed by: RODY ALDANA on 12/25/20 1044 Fluoxetine HCl (Fluoxetine HCl) 20 Mg Capsule, 20 MG PO DAILY, (Reported) Entered as Reported by: DANIELLE RICHARD on 07/31/20 1616 Glimepiride (Glimepiride) 1 Mg Tablet, 1 MG PO DAILY PRN for WHEN TAKING PREDNISONE, (Reported) Entered as Reported by: HARSH PARRISH on 04/29/17 1346 Hydrocodone/Acetaminophen (Hydrocodone-Acetamin 10-325 mg) 1 Each Tablet, 1 EA PO Q6H PRN for PAIN-MODERATE (5-7) Prescribed by: RODY ALDANA on 12/25/20 1044 Ipratropium/Albuterol Sulfate (Iprat-Albut 0.5-3(2.5) mg/3 ml) 3 Ml Ampul.neb, 3 ML IH Q6H PRN for SHORTNESS OF BREATH, (Reported) Entered as Reported by: HARSH PARRISH on 08/26/17 1605 Magnesium Oxide (Magnesium Oxide) 400 Mg Tablet, 400 MG PO BID Prescribed by: ABIGAIL PASCUAL on 02/08/21 0413 Menthol (Biofreeze) 118 Ml Gel..ml., 1 APPLIC TP UD PRN for PAIN-BREAKTHROUGH, (Reported) Entered as Reported by: DANIELLE RICHARD on 12/18/20 112 Multivitamin/Iron/Folic Acid (Centrum Women Tablet) 1 Each Tablet, 1 EACH PO DAILY, (Reported) Entered as Reported by: DANIELLE RICHARD on 12/18/20 112 Nitrofurantoin Monohyd/M-Cryst (Nitrofurantoin Carver-Mcr 100 mg) 100 Mg Capsule, 1 EA PO HS, (Reported) Entered as Reported by: DANIELLE RICHARD on 12/18/20 112 Olanzapine (Olanzapine) 10 Mg Tablet, 10 MG PO HS, (Reported) Entered as Reported by: DANIELLE RICHARD on 07/31/20 161 Pantoprazole Sodium (Pantoprazole Sodium) 40 Mg Tablet.dr, 40 MG PO DAILY Prescribed by: RODY ALDANA on 12/25/20 104 Potassium Chloride (Potassium Chloride) 20 Meq Tablet.er, 40 MEQ PO DAILY Prescribed by: ELLEN ACE on 01/25/21 2308 Potassium Chloride (K-Tab ER) 20 Meq Tablet.er, 40 MEQ PO BID Prescribed by: ABIGAIL PASCUAL on 02/08/21412 Prednisone (Prednisone) 10 Mg Tab, 10 MG PO DAILY, (Reported) Entered as Reported by: DANIELLE RICHARD on 07/31/20 161 Promethazine HCl (Promethazine HCl) 12.5 Mg Tablet, 12.5-25 MG PO Q6H PRN for NAUSEA/VOMITING-2ND LINE, (Reported) Entered as Reported by: DANIELLE RICHARD on 07/31/20 161 Rosuvastatin Calcium (Rosuvastatin Calcium) 20 Mg Tablet, 20 MG PO HS Prescribed by: RODY ALDANA on 12/25/20 1044 [Lorazepam] 0.5 MG TABLET, 2 MG PO QID PRN for ANXIETY Prescribed by: RODY ALDANA on 12/25/20 1044 Review of Systems Review of Systems Constitutional: see HPI EENTM: No Symptoms Reported Respiratory: SOA at Rest Cardiovascular: Chest Pain Gastrointestinal: No Symptoms Reported Genitourinary: No Symptoms Reported Musculoskeletal: no symptoms reported Skin: no symptoms reported Psychiatric/Neurological: Anxiety All Other Systems Reviewed Negative Unless Noted: Yes Past Nkejqbg-Vhkqvj-Ebsxqi Hx Immunizations Up To Date Tetanus Booster (TDap): Unknown First/Initial COVID19 Vaccinat: 08/03/20 Second COVID19 Vaccination Dustin: 08/27 Seasonal Allergies Seasonal Allergies: No Past Medical History Surgery/Hospitalization HX: IDDM,CHF,COPD,ANXIETY,HIGH LIPIDS Surgeries: Yes (EGD/COLONOSCOPY; CARDIAC CATH 09/18/17--NO INTERVENTION) Cardiac Respiratory: Yes (O2 AT 2-3L/NC) Pneumonia, Chronic Bronchitis, Sleep Apnea, COPD Currently Using CPAP: No Currently Using BIPAP: Yes Cardiac: Yes Cardiomyopathy, Chronic Edema/Swelling, Coronary Artery Disease, High Cholesterol, Hypertension Neurological: Yes Headaches /Migraines 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 Disorders: No 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 Disorders: Denies 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 MANAGER History: Menopausal Sexually Transmitted Disease: No HIV/AIDS: No Genitourinary: Yes Bladder Infection Gastrointestinal: Yes (GASTRITIS AND ESOPHAGEAL CANDIDIASIS 04/2017) Gastroesophageal Reflux, Gastrointestinal Bleed, Chronic Constipation, Chronic Diarrhea, Esophagitis, Ulcer Musculoskeletal: Yes (chronic shoulder and neck pain--OPIATE DEPENDENT;MINIMALLY AMBULATORY) Degenerate Disk Disease, Arthritis, Chronic Back Pain Endocrine: Yes (NIDDM; MORBID OBESITY) Diabetes, Non-Insulin dep HEENT: No Cancer: No Psychosocial: Yes (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; POLYSUBSTANCE ABUSE) Sleep Difficulties, Anxiety, Suicide Attempts, Bipolar, Depression Integumentary: No Blood Disorders: Yes (ANEMIA) Adverse Reaction/Blood Tranf: No Family Medical History Cancer 03 MOTHER, Onset:66 (LUNG ) 09 BROTHER (LUNG ) Congestive heart failure 03 FATHER Heart Disease, Cancer SOCIAL HISTORY : -SMOKING--3-4 PPD -ETOH--DENIES USE -DRUG USE--+ IV METH AND ALSO SMOKES IN ON A REGULAR BASIS; 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 0.9oz. 89.607927hs; 48.00 BMI Method:Stated General Appearance: WD/WN, Anxious HEENT: PERRL/EOMI Neck: Normal Inspection Respiratory: No Accessory Muscle Use, No Respiratory Distress, Wheezing (exp wheezes throughout with labored breathing) Cardiovascular: Regular Rate, Rhythm, Normal Peripheral Pulses Gastrointestinal: Normal Bowel Sounds, Soft Extremity: Normal Capillary Refill, Normal Inspection, Normal Range of Motion, Non Tender, No Calf Tenderness, No Pedal Edema Neurologic/Psychiatric: Alert, Oriented x3, No Motor/Sensory Deficits, Normal Mood/Affect, allergist/pediatric pulmonologist II-XII Norm as Tested Skin: Normal Color, Warm/Dry Progress/Results/Core Measures Results/Orders Lab Results Laboratory Tests Test 02/26/21 00:00 02/26/21 23:58 02/27/21 02:15 02/27/21 02:50 Range/Units Sodium Level 135 135-145 MMOL/L Potassium Level 3.5 L 3.6-5.0 MMOL/L Chloride Level 93 L 98-107 MMOL/L Carbon Dioxide Level 29 21-32 MMOL/L Anion Gap 13 5-14 MMOL/L Blood Urea Nitrogen 14 7-18 MG/DL Creatinine 1.26 0.60-1.30 MG/DL Estimat Glomerular Filtration Rate 44 BUN/Creatinine Ratio 11 Glucose Level 442 *H 70-105 MG/DL Calcium Level 8.6 8.5-10.1 MG/DL Troponin I < 0.028 < 0.028 <0.028 NG/ML B-Type Natriuretic Peptide 61.3 <100.0 PG/ML White Blood Count 9.9 4.3-11.0 10^3/uL Red Blood Count 3.47 L 3.80-5.11 10^6/uL Hemoglobin 10.0 L 11.5-16.0 g/dL Hematocrit 31 L 35-52 % Mean Corpuscular Volume 89 80-99 fL Mean Corpuscular Hemoglobin 29 25-34 pg Mean Corpuscular Hemoglobin Concent 32 32-36 g/dL Red Cell Distribution Width 13.9 10.0-14.5 % Platelet Count 248 130-400 10^3/uL Mean Platelet Volume 10.9 9.0-12.2 fL Immature Granulocyte % (Auto) 1 % Neutrophils (%) (Auto) 69 42-75 % Lymphocytes (%) (Auto) 21 12-44 % Monocytes (%) (Auto) 9 0-12 % Eosinophils (%) (Auto) 1 0-10 % Basophils (%) (Auto) 0 0-10 % Neutrophils # (Auto) 6.8 1.8-7.8 10^3/uL Lymphocytes # (Auto) 2.0 1.0-4.0 10^3/uL Monocytes # (Auto) 0.9 0.0-1.0 10^3/uL Eosinophils # (Auto) 0.1 0.0-0.3 10^3/uL Basophils # (Auto) 0.0 0.0-0.1 10^3/uL Immature Granulocyte # (Auto) 0.1 0.0-0.1 10^3/uL Glucometer 266 H 70-110 MG/DL My Orders Orders - JOE GAMBLE MD Ed Iv/Invasive Line Start (02/26/21 23:58) Cbc With Automated Diff (02/26/21 23:58) Basic Metabolic Panel (02/26/21 23:58) Troponin I Heard (02/26/21 23:58) Bnp Jame (02/26/21 23:58) Ekg Tracing (02/26/21 23:58) Aspirin Chewable Tablet (Baby Aspirin Ch (02/26/21 23:58) Lorazepam Tablet (Ativan Tablet) (02/26/21 23:58) Albuterol Pre-Mix Nebs (Rt) (Proventil (02/27/21 00:00) Svn Small Volume Nebulizer (02/26/21 23:58) Chest 1 View, Ap/Pa Only (02/27/21 00:01) Insulin (Regular) Human (Novolin R (Per (02/27/21 00:45) Troponin I Jame (02/27/21 01:58) Accucheck Stat ONCE (02/27/21 02:36) Medications Given in ED Current Medications Medications Dose Ordered Sig/Vladimir Route Start Time Stop Time Status Last Admin Dose Admin Albuterol Sulfate 2.5 mg ONCE ONCE INH 02/27/21 00:00 02/27/21 00:01 DC 02/27/21 00:05 2.5 MG Insulin Human Regular 10 unit ONCE ONCE SC 02/27/21 00:45 02/27/21 00:46 DC 02/27/21 01:23 10 UNIT Vital Signs/I&O 12/21/21 12/22/21 23:32 03:05 Pulse 93 84 Resp 25 18 B/P (MAP) 131/105 (114) 150/98 Pulse Ox 94 97 O2 Delivery Room Air Room Air Progress Progress Note : Time: 02:58 Progress Note Patient VS remain stable. Blood sugar down to 266 (treated with 10u reg insulin SC). 2 sets of troponin negative (second one 4.5 hours from onset of Chest pain). BNP normal. CXR normal. Re-examined lungs - improved wheezing. No evidence of STEMI or NSTEMI. Patient's CP not cardiac. reproducible. sats good. No distress. Wi9ll send home with continued management of COPD and DM. No indications for admission. Initial ECG Impression Date: Feb 27, 2021 Initial ECG Impression Time: 23:45 Initial ECG Rate: 83 Initial ECG Rhythm: Normal Sinus Initial ECG Intervals: Normal Initial ECG Impression: Normal Diagnostic Imaging Diagonstic Imaging: Xray Plain Films/CT/US/NM/MRI: chest Comments Chest xray (interpreted by me) hazy Left lower lobe (same as previous exam) no CHF, no infiltrates, no effusions Departure Impression Primary Impression: Chest pain Qualified Codes: R07.1 - Chest pain on breathing Disposition: 01 HOME, SELF-CARE Condition: Stable Departure-Patient Inst. Decision time for Depature: 02:34 Referrals: [facility] (PCP/Family) Primary Care Physician FRANCESCO AUGUSTE MD Patient Instructions: Chest Pain That Is Not Caused by the Heart (DC) Add. Discharge Instructions: Continue your daily prescribed medications as directed. You can take tylenol extra strength or your prescribed pain medication as needed for your chest pain. Please follow up with Dr Auguste. Return to the ER for re-evaluation for any new, concerning or emergent complaints. JOE GAMBLE MD Feb 27, 2021 00:03
[2021-02-27 00:06] LABS: BASOPHILS % (AUTO) 0 % (0-10); EOSINOPHILS # (AUTO) 0.1 10^3/uL (0.0-0.3); EOSINOPHILS % (AUTO) 1 % (0-10); HEMATOCRIT 31 % (35-52); LYMPHOCYTES % (AUTO) 21 % (12-44); MEAN CORPUSCULAR HEMOGLOBIN 29 pg (25-34); MEAN CORPUSCULAR HGB CONC 32 g/dL (32-36); MEAN CORPUSCULAR VOLUME 89 fL (80-99); MEAN PLATELET VOLUME 10.9 fL (9.0-12.2); MONOCYTES # (AUTO) 0.9 10^3/uL (0.0-1.0); MONOCYTES % (AUTO) 9 % (0-12); NEUTROPHILS # (AUTO) 6.8 10^3/uL (1.8-7.8); NEUTROPHILS % (AUTO) 69 % (42-75); PLATELET COUNT 248 10^3/uL (130-400); WHITE BLOOD COUNT 9.9 10^3/uL (4.3-11.0)
[2021-02-27 00:18] LABS: CHLORIDE 93 MMOL/L (98-107)
[2021-02-27 00:19] LABS: POTASSIUM 3.5 MMOL/L (3.6-5.0); SODIUM 135 MMOL/L (135-145)
[2021-02-27 00:20] LABS: CALCIUM 8.6 MG/DL (8.5-10.1)
[2021-02-27 00:22] LABS: CARBON DIOXIDE 29 MMOL/L (21-32)
[2021-02-27 00:24] LABS: CREATININE SERUM 1.26 MG/DL (0.60-1.30); GFR ESTIMATED 44
[2021-02-27 00:25] LABS: BUN/CREATININE RATIO 11
[2021-02-27 00:34] LABS: GLUCOSE 442 MG/DL (70-105)
[2021-02-27] MEDS ORDERED: inSUlin (REGULAR) HUMAN 1 UNIT/0.01 ML (CHARGE PER UNIT) SC ONE (00:45)
[2021-02-27 03:05] VITALS: BP 150/98
--- NOTE | 2021-02-27 04:15 | Diagnostic Imaging Report ---
EXAMINATION: Chest 1 view HISTORY: sob chest pain COMPARISON: 02/07/2021 FINDINGS: Heart size and pulmonary vasculature are stable. There is a small left pleural effusion. Mild bibasilar interstitial opacities. No pneumothorax. The osseous structures are intact. IMPRESSION: 1. Small left pleural effusion with bibasilar interstitial opacities. This could be seen with pulmonary edema, atelectasis or atypical infection. Dictated by: Dictated on workstation # [id number]
== END 2021-02-27 03:05 | disposition home or self-care (01) ==
LOC: EDUNIT# 23:32 → ER 23:34
DX: R07.9 Chest pain, unspecified (principal); G47.30 Sleep apnea, unspecified; I10 Essential (primary) hypertension; J44.9 Chronic obstructive pulmonary disease, unspecified; E66.01 Morbid (severe) obesity due to excess calories; E78.00 Pure hypercholesterolemia, unspecified; I25.10 Atherosclerotic heart disease of native coronary artery without angina pectoris; E11.9 Type 2 diabetes mellitus without complications; K21.9 Gastro-esophageal reflux disease without esophagitis; F31.9 Bipolar disorder, unspecified; F41.9 Anxiety disorder, unspecified; G89.29 Other chronic pain; M54.9 Dorsalgia, unspecified; Z68.42 Body mass index [BMI] 45.0-49.9, adult; Z79.82 Long term (current) use of aspirin; Z79.899 Other long term (current) drug therapy; Z79.891 Long term (current) use of opiate analgesic
CPT/HCPCS: 36415; 71045; 80048; 82947; 83880; 84484; 85025; 93005

== ENCOUNTER 2021-03-20 11:00 | Day surgery (SDC) | payer MEDICAID ==
[~2021-03-20] VITALS: Ht 175.3 cm; Wt 130.2 kg
[2021-03-20] VITALS (10 sets, daily range): BP systolic 117–132; BP diastolic 79–90
--- NOTE | 2021-03-20 09:46 | Diagnostic Imaging Report ---
INDICATION: Preop for heart catheterization. TIME OF EXAM: 9:43 AM Correlation is made with prior chest 02/27/2021. FINDINGS: The heart size is normal. The pulmonary vascularity is unremarkable. The lungs are clear. No infiltrate, effusion or pneumothorax is detected. IMPRESSION: No acute cardiopulmonary process is detected. Dictated by: Dictated on workstation # [id number]
[2021-03-20 09:53] LABS: HEMATOCRIT 37 % (35-52); MEAN CORPUSCULAR HEMOGLOBIN 28 pg (25-34); MEAN CORPUSCULAR HGB CONC 33 g/dL (32-36); MEAN CORPUSCULAR VOLUME 87 fL (80-99); MEAN PLATELET VOLUME 11.6 fL (9.0-12.2); PLATELET COUNT 302 10^3/uL (130-400); WHITE BLOOD COUNT 10.8 10^3/uL (4.3-11.0)
[2021-03-20 10:07] LABS: INR 0.8 (0.8-1.4); PROTHROMBIN TIME PATIENT 11.9 SEC (12.2-14.7)
[2021-03-20 10:12] LABS: ALBUMIN 4.1 GM/DL (3.2-4.5); BILIRUBIN,TOTAL 0.5 MG/DL (0.1-1.0); CALCIUM 9.7 MG/DL (8.5-10.1); CREATININE SERUM 1.33 MG/DL (0.60-1.30); POTASSIUM 3.5 MMOL/L (3.6-5.0); TOTAL PROTEIN 7.3 GM/DL (6.4-8.2)
[~2021-03-20 11:00] MED LIST changes: +BUME2TAB7 PO; +CARV3.122 PO; +FLUO20TA28 PO; +HEParin (CATH LAB) 2,000 ML IV ONE; +LIDOCAINE 1% INJ 20 ML VIAL ONE; +LORA-407 PO; +NS IV 1000 ML 1,000 ML IV SCH; +NS IV 1000 ML 1,000 ML ONE; +OXYB5TAB13 PO
[2021-03-20] MEDS ORDERED: inSUlin (REGULAR) HUMAN 1 UNIT/0.01 ML (CHARGE PER UNIT) SC ONE (11:45)
[2021-03-20] MEDS ORDERED: VERAPAMIL 5 MG/2 ML (CALAN) VIAL IV ONE ×2 (12:01→12:04)
[2021-03-20] MEDS ORDERED: fentaNYL INJ 100 MCG/2 ML AMP ONE (12:01)
[2021-03-20] MEDS ORDERED: NITRO DRIP 25000 MCG/D5W 250 ML IV ONE (12:02)
[2021-03-20] MEDS ORDERED: MIDAZOLAM 5 MG/5 ML (VERSED) VIAL ONE (12:02)
[2021-03-20] MEDS ORDERED: HEParin 1000 UNIT/ML (10ML VIAL) FOR BOLUS ONE (12:02)
[2021-03-20] MEDS ORDERED: PATIENT MAY USE OWN MEDS, ALL PO SCH (12:45)
[2021-03-20] MEDS ORDERED: NS IV 1000 ML 1,000 ML IV SCH (12:45)
--- NOTE | 2021-03-20 12:45 | Discharge Inst-Post CATH ---
Discharge Inst-CATH/EP Problems Reviewed?: Yes Post Cardiac Cath/EP D/C Inst Follow Up/Plan Appointment with Dr. Auguste's office in 4 weeks <b>CARDIAC CATH/EP PROCEDURE DISCHARGE INSTRUCTIONS</b> ACTIVITY * Go Home directly and rest. * Limit activity of the leg (or wrist if it was used) for 7 days including aerobics, swimming, jogging, bicycling, etc. * Restrict stair-climbing for 7 days if possible, if not, climb up with your non-cath leg, then bring together on the same step. * Avoid lifting, pushing, pulling or excessive movement of the affected extremity for 7 days. * Customary sexual activity may be resumed after 2 days-use caution not to use a position that strains or causes pain to the affected extremity. * No driving for 24 hours. * NO SMOKING. * Avoid straining for bowel movements for 7 days. * Gentle walking on level ground is allowed. * Returning to work will depend on the type of procedure and the results. Your doctor will discuss this with you. CALL YOUR DOCTOR FOR ANY OF THE FOLLOWING: *If bleeding from the puncture site occurs- Apply gentle pressure to site with clean cloth and call your doctor or EMS. * If a knot or lump forms under the skin, increases in size, or causes pain. * If bruising appears to be worsening or moving further down your leg instead of disappearing. * Temperature above 101 F. CARE OF YOUR GROIN INCISION; * Bruising or purple discoloration of the skin near the puncture site is common. * You may shower only, no bathtub bathing for 5 days. Be careful to avoid slipping as your leg may feel stiff. * If a closure device was used on your femoral artery, please see the attached guide regarding care of the device and your leg. * Leave dressing on FOR 24 hours. CARE OF YOUR WRIST INCISION; * Bruising or purple discoloration of the skin near the puncture site is common. * You may shower. * DO NOT submerge wrist. * Leave dressing on FOR 24 hours. FRANCESCO AUGUSTE MD Mar 20, 2021 12:45
--- NOTE | 2021-03-20 12:46 | Conscious Sedation/ASA ---
Conscious Sedation Pre-Proced Time 11:30 ASA Score 3 For ASA 3 and 4: Consider anesthesia and medical clearance. Also, for patients with a history of failed moderate sedation consider anesthesia. Airway Lungs Heart ASA score ASA 1: a normal healthy patient ASA 2: a patient with a mild systemic disease (mid diabetes, controlled hypertension, obesity x ASA 3: a patient with a severe systemic disease that limits activity (angina, COPD, prior Myocardial infarction) ASA 4: a patient with an incapacitating disease that is a constant threat to life (CHF, renal failure) ASA 5: a moribund patient not expected to survive 24 hrs. (ruptured aneurysm) ASA 6: a declared brain- patient whose organs are being harvested. For emergent operations, add the letter E after the classification Mallampati Classification Grade 3 Sedation Plan Analgesia, Amnesia, Plan communicated to team members, Discussed options with patient/fam, Discussed risks with patient/fam The patient is an appropriate candidate to undergo the planned procedure, sedation, and anesthesia. The patient immediately re-assessed prior to indication. FRANCESCO GOULD MD Mar 20, 2021 12:46
--- NOTE | 2021-03-20 12:48 | Cardiac Cath Report ---
Cardiac Cath Report Physician (s)/Sawmill Production Worker (s) Physician FRANCESCO GOULD MD Pre-Procedure Diagnosis Pre-Procedure Diagnosis: Coronary artery disease Post-Procedure Note Procedure Start Date: Mar 20, 2021 Name of Procedure: Left heart catheterization Findings/Procedure Note PROCEDURE NOTE: 56-year-old lady with history of nonischemic cardiomyopathy, had an abnormal stress test with anterior wall ischemia, scheduled for cardiac catheterization possible PTCA. After explaining the procedure to the patient, all pros and cons were explained, all questions were answered. The patient signed the consent and then she was placed on the cardiac catheterization laboratory. Groin was prepped SL fashion local anesthesia was used. Sheath placed in the right radial artery, Tatum catheter was advanced to the left ventricular cavity, pressure was measured, pullback LV to aorta was done, engaged the right and left coronary system, angiogram was done. At the end of the procedure the sheath was removed. Vascular band deployed FINDINGS: Hemodynamics LV 120/19, end-diastolic pressure of 19 Aorta 120/85 mean of 100 ANATOMY: Left Main is free of obstructive disease Left Anterior Descending has mild ectasia with no obstructive disease Left Circumflex is large dominant artery with mild disease nonobstructive disease Right Coronary Artery is large artery, has mild disease nonobstructive disease LV Gram was not done, pressure was measured CONCLUSION: 1. Dilated coronary system with mild ectasia in the LAD, nonobstructive disease 2. Mildly elevated left ventricular end-diastolic pressure DISCUSSION AND RECOMMENDATION: Medical therapy is recommended no intervention is needed Anesthesia Type: Conscious Sedation Estimated blood loss (mL): 10 ml Contrast Amount: 35 ml Total Radiation Dose: 440 mGy Post-Procedure Diagnosis Post-operative diagnosis: Chest pain Coronary artery disease Congestive heart failure, chronic compensated left ventricular systolic dysfunction, nonischemic cardiomyopathy Hypertension FRANCESCO GOULD MD Mar 20, 2021 12:48
== END 2021-03-20 15:35 | disposition home or self-care (01) ==
LOC: CATH 11:00 → SDC 12:54 → CATH 15:35
PROVIDERS: ATTEND Internal Medicine Cardiovascular Disease
DX: I25.10 Atherosclerotic heart disease of native coronary artery without angina pectoris (principal); I11.0 Hypertensive heart disease with heart failure; I50.22 Chronic systolic (congestive) heart failure; I42.8 Other cardiomyopathies; E11.9 Type 2 diabetes mellitus without complications; J44.9 Chronic obstructive pulmonary disease, unspecified; G43.909 Migraine, unspecified, not intractable, without status migrainosus; E66.9 Obesity, unspecified; Z68.42 Body mass index [BMI] 45.0-49.9, adult; I65.23 Occlusion and stenosis of bilateral carotid arteries; Z79.84 Long term (current) use of oral hypoglycemic drugs; Z87.891 Personal history of nicotine dependence; Z99.81 Dependence on supplemental oxygen; Z79.899 Other long term (current) drug therapy
CPT/HCPCS: 36415; 71045; 80053; 80061; 85027; 85610; 85730; 87081; 93458

== ENCOUNTER 2021-03-23 21:55 | Emergency (ER) | payer MEDICARE, MEDICAID ==
[~2021-03-23] VITALS: Ht 175.3 cm; Wt 128.4 kg
[~2021-03-23 21:55] MED LIST changes: -HEParin (CATH LAB) 2,000 ML IV ONE; -LIDOCAINE 1% INJ 20 ML VIAL ONE; -NS IV 1000 ML 1,000 ML IV SCH; -NS IV 1000 ML 1,000 ML ONE
[2021-03-23] MEDS ORDERED: inSUlin (REGULAR) HUMAN 1 UNIT/0.01 ML (CHARGE PER UNIT) ONE ×2 (22:02→23:03)
[2021-03-23] MEDS ORDERED: LACTATED RINGERS 1,000 ML IV ONE (22:04)
[2021-03-23] MEDS ORDERED: inSUlin (REGULAR) HUMAN 1 UNIT/0.01 ML (CHARGE PER UNIT) IV STA (22:23)
[2021-03-23] MEDS ORDERED: LACTATED RINGERS 1,000 ML IV STA (22:23)
[2021-03-23] MEDS ORDERED: LORazepam 0.5 MG (ATIVAN) TABLET PO STA (22:23)
[2021-03-23 22:30] LABS: BASOPHILS % (AUTO) 0 % (0-10); EOSINOPHILS # (AUTO) 0.1 10^3/uL (0.0-0.3); EOSINOPHILS % (AUTO) 1 % (0-10); HEMATOCRIT 34 % (35-52); LYMPHOCYTES # (AUTO) 1.8 10^3/uL (1.0-4.0); LYMPHOCYTES % (AUTO) 19 % (12-44); MEAN CORPUSCULAR HEMOGLOBIN 29 pg (25-34); MEAN CORPUSCULAR HGB CONC 33 g/dL (32-36); MEAN CORPUSCULAR VOLUME 88 fL (80-99); MEAN PLATELET VOLUME 11.9 fL (9.0-12.2); MONOCYTES # (AUTO) 0.6 10^3/uL (0.0-1.0); MONOCYTES % (AUTO) 6 % (0-12); NEUTROPHILS # (AUTO) 7.1 10^3/uL (1.8-7.8); NEUTROPHILS % (AUTO) 74 % (42-75); PLATELET COUNT 257 10^3/uL (130-400); WHITE BLOOD COUNT 9.7 10^3/uL (4.3-11.0)
[2021-03-23 22:32] LABS: ALBUMIN 3.7 GM/DL (3.2-4.5)
[2021-03-23 22:33] LABS: POTASSIUM 3.8 MMOL/L (3.6-5.0)
[2021-03-23 22:34] LABS: CALCIUM 8.6 MG/DL (8.5-10.1)
[2021-03-23 22:35] LABS: TOTAL PROTEIN 6.4 GM/DL (6.4-8.2)
[2021-03-23 22:37] LABS: BILIRUBIN,URINE NEGATIVE (NEGATIVE); CLARITY,URINE CLEAR; COLOR,URINE YELLOW; GLUCOSE, URINE (UA) 3+ (NEGATIVE); KETONES,URINE NEGATIVE (NEGATIVE); LEUKOCYTE ESTERASE ,URINE NEGATIVE (NEGATIVE); NITRITE,URINE NEGATIVE (NEGATIVE); PROTEIN,URINE NEGATIVE (NEGATIVE)
[2021-03-23 22:37] LABS: BILIRUBIN,TOTAL 0.3 MG/DL (0.1-1.0)
[2021-03-23 22:39] LABS: CREATININE SERUM 1.66 MG/DL (0.60-1.30)
--- NOTE | 2021-03-23 22:42 | ED General ---
General Chief Complaint: Glucose Problems Stated Complaint: SOA/HYPERTENSION Nursing Triage Note: Pt to ED3 via EMS with c/o high blood sugar. NH took blood sugar, reading said "high". Source of Information: Patient, EMS Exam Limitations: No Limitations History of Present Illness Date Seen by Provider: Mar 23, 2021 Time Seen by Provider: 22:06 Initial Comments Report of assisted with elevated blood sugar that read high. Does have h istory of diabetes and is on glimepiride. Currently on steroids. Does have history of severe COPD and has been on and off hospice. Currently on the nursing care facility. She did suffer from and recover from COVID-19 in early last month. Complains of typical aches and pains as well as wheezing but is better right now. States she does have some anxiety and is requesting her dose of lorazepam. She does not have insulin ordered for her blood sugar at the nursing care facility. Timing/Duration: 1-2 Days Severity: Moderate Associated Systoms: No Chest Pain, No Cough, No Fever/Chills, No Nausea/Vomiting; Shortness of Air; No Weakness Allergies and Home Medications Allergies Coded Allergies: buspirone (Verified Allergy, Mild, 05/02/17) Made"legs Shaky" amitriptyline (Verified Allergy, Unknown, 05/02/17) " MAKES ME DO WEIRD THINGS LIKE WALK IN MY SLEEP AND HAVE HALLUCINATIONS." amlodipine (Verified Allergy, Unknown, 03/20/21) Patient Home Medication List Home Medication List Reviewed: Yes Acetaminophen (Tylenol) 325 Mg Tablet, 650 MG PO Q4H PRN for PAIN-MILD (1-4), (R eported) Entered as Reported by: SEAN ARTEAGA on 03/20/21 1008 Albuterol Sulfate (Proair Hfa) 1 Puff Puff, 2 PUFF IH Q4H PRN for SHORTNESS OF BREATH, (Reported) Entered as Reported by: SEAN ARTEAGA on 03/20/21 1008 Aspirin (Aspirin EC) 81 Mg Tablet.dr, 81 MG PO DAILY, (Reported) Entered as Reported by: HARSH PARRISH on 11/19/17 1603 Benzonatate (Benzonatate) 100 Mg Capsule, 100 MG PO QID, (Reported) Entered as Reported by: DANIELLE RICHARD on 07/31/20 1616 Bumetanide (Bumetanide) 2 Mg Tablet, 2 MG PO DAILY, (Reported) Entered as Reported by: SEAN ARTEAGA on 03/20/21 1008 Carvedilol (Carvedilol) 3.125 Mg Tablet, 3.125 MG PO BID, (Reported) Entered as Reported by: SEAN ARTEAGA on 03/20/21 1008 Fluoxetine HCl (Fluoxetine HCl) 20 Mg Tablet, 40 MG PO DAILY, (Reported) Entered as Reported by: SEAN ARTEAGA on 03/20/21 1008 Glimepiride (Glimepiride) 1 Mg Tablet, 1 MG PO DAILY PRN for WHEN TAKING PREDNISONE, (Reported) Entered as Reported by: HARSH PARRISH on 04/29/17 1346 Hydrocodone/Acetaminophen (Hydrocodone-Acetamin 10-325 mg) 1 Each Tablet, 1 EACH PO Q6H PRN for PAIN-MODERATE (5-7), (Reported) Entered as Reported by: SEAN ARTEAGA on 03/20/21 1023 Lorazepam (Ativan) 2 Mg Tablet, 2 MG PO Q6H, (Reported) Entered as Reported by: SEAN ARTEAGA on 03/20/21 1008 Menthol (Biofreeze) 118 Ml Gel..ml., 1 APPLIC TP UD PRN for PAIN-BREAKTHROUGH, (Reported) Entered as Reported by: DANIELLE RICHARD on 12/18/20 1129 Multivitamin/Iron/Folic Acid (Centrum Women Tablet) 1 Each Tablet, 1 EACH PO DAILY, (Reported) Entered as Reported by: DANIELLE RICHARD on 12/18/20 1129 Nitrofurantoin Macrocrystal (Nitrofurantoin) 100 Mg Capsule, 100 MG PO HS, (Reported) Entered as Reported by: SEAN ARTEAGA on 03/20/21 1008 Olanzapine (Olanzapine) 10 Mg Tablet, 10 MG PO HS, (Reported) Entered as Reported by: DANIELLE RICHARD on 07/31/20 1616 Oxybutynin Chloride (Oxybutynin Chloride) 5 Mg Tablet, 5 MG PO BID, (Reported) Entered as Reported by: SEAN ARTEAGA on 03/20/21 1008 Pantoprazole Sodium (Pantoprazole Sodium) 40 Mg Tablet.dr, 40 MG PO DAILY, (Reported) Entered as Reported by: SEAN ARTEAGA on 03/20/21 1008 Prednisone (Prednisone) 10 Mg Tab, 10 MG PO DAILY, (Reported) Entered as Reported by: DANIELLE RICHARD on 07/31/20 161 Rosuvastatin Calcium (Rosuvastatin Calcium) 20 Mg Tablet, 20 MG PO HS, (Reported) Entered as Reported by: SEAN ARTEAGA on 03/20/21 1008 Discontinued Medications Albuterol Sulfate (Proventil Hfa) 6.7 Gm Hfa.aer.ad, 2 PUFF INH Q4H PRN for SHORTNESS OF BREATH, (Reported) Discontinued Reason: Duplicate Order Entered as Reported by: DANIELLE RICHARD on 07/31/20 1616 Bumetanide (Bumetanide) 1 Mg Tablet, 1 MG PO DAILY, (Reported) Discontinued Reason: Prescription changed Entered as Reported by: DANIELLE RICHARD on 07/31/20 1616 Carvedilol (Carvedilol) 6.25 Mg Tablet, 3.125 MG PO BID WITH MEALS, (Reported) Discontinued Reason: Prescription changed Entered as Reported by: DANIELLE RICHARD on 07/31/20 161 Cefdinir (Cefdinir) 300 Mg Capsule, 300 MG PO BID Discontinued Reason: No Longer Taking Prescribed by: ELLEN ACE on 01/25/21 2311 Fentanyl (Fentanyl Patch 50 MCG) 1 Each Patch.td72, 50 MCG TD Q72H Discontinued Reason: No Longer Taking Prescribed by: RODY ALDANA on 12/25/20 1044 Fentanyl (Fentanyl Patch 100 MCG) 1 Each Patch.td72, 100 MCG TD Q72H Discontinued Reason: No Longer Taking Prescribed by: RODY ALDANA on 12/25/20 1044 Hydrocodone/Acetaminophen (Hydrocodone-Acetamin 10-325 mg) 1 Each Tablet, 1 EA PO Q6H PRN for PAIN-MODERATE (5-7) Discontinued Reason: No Longer Taking Prescribed by: RODY ALDANA on 12/25/20 1044 Ipratropium/Albuterol Sulfate (Iprat-Albut 0.5-3(2.5) mg/3 ml) 3 Ml Ampul.neb, 3 ML IH Q6H PRN for SHORTNESS OF BREATH, (Reported) Discontinued Reason: No Longer Taking Entered as Reported by: HARSH PARRISH on 08/26/17 1605 Magnesium Oxide (Magnesium Oxide) 400 Mg Tablet, 400 MG PO BID Discontinued Reason: No Longer Taking Prescribed by: ABIGAIL PASCUAL on 02/08/21 0413 Menthol (Biofreeze) 118 Ml Gel..ml., 1 APPLIC TP DAILY PRN for PAIN- BREAKTHROUGH, (Reported) Discontinued Reason: Duplicate Order Entered as Reported by: SEAN ARTEAGA on 03/20/21 1008 Nitrofurantoin Monohyd/M-Cryst (Nitrofurantoin [place]-Mcr 100 mg) 100 Mg Capsule, 1 EA PO HS, (Reported) Discontinued Reason: Duplicate Order Entered as Reported by: DANIELLE RICHARD on 12/18/20 1129 Pantoprazole Sodium (Pantoprazole Sodium) 40 Mg Tablet.dr, 40 MG PO DAILY Discontinued Reason: Duplicate Order Prescribed by: RODY ALDANA on 12/25/20 1044 Potassium Chloride (Potassium Chloride) 20 Meq Tablet.er, 40 MEQ PO DAILY Discontinued Reason: No Longer Taking Prescribed by: ELLEN ACE on 01/25/21 2308 Potassium Chloride (K-Tab ER) 20 Meq Tablet.er, 40 MEQ PO BID Discontinued Reason: No Longer Taking Prescribed by: ABIGAIL PASCUAL on 02/08/21 0413 Promethazine HCl (Promethazine HCl) 12.5 Mg Tablet, 12.5-25 MG PO Q6H PRN for NAUSEA/VOMITING-2ND LINE, (Reported) Discontinued Reason: No Longer Taking Entered as Reported by: DANIELLE RICHARD on 07/31/20 1616 Rosuvastatin Calcium (Rosuvastatin Calcium) 20 Mg Tablet, 20 MG PO HS Discontinued Reason: No Longer Taking Prescribed by: RODY ALDANA on 12/25/20 1044 [Lorazepam] 0.5 MG TABLET, 2 MG PO QID PRN for ANXIETY Discontinued Reason: No Longer Taking Prescribed by: RODY ALDANA on 12/25/20 1044 Review of Systems Review of Systems Constitutional: see HPI; No chills, No fever EENTM: No nose congestion, No throat pain Respiratory: short of breath, wheezing Cardiovascular: No chest pain, No edema Gastrointestinal: No abdominal pain, No nausea, No vomiting Genitourinary: no symptoms reported Musculoskeletal: muscle pain; No muscle weakness Skin: no symptoms reported Psychiatric/Neurological: Anxiety; Denies Headache All Other Systems Reviewed Negative Unless Noted: Yes Past Kezpxsd-Ktvops-Evurhd Hx Patient Social History Use of E-Cig and/or Vaping dev: Yes E-Cig or Vaping type used: Nicotine Use of E-Cig and/or Vaping Greg: Current Everyday User Substance use?: No Alcohol Use?: No Pt feels they are or have been: No Immunizations Up To Date Tetanus Booster (TDap): Unknown First/Initial COVID19 Vaccinat: 08/03/20 Second COVID19 Vaccination Dustin: 08/27 COVID19 Vaccine Flare Man: Doesnt Remember Seasonal Allergies Seasonal Allergies: No Past Medical History Surgery/Hospitalization HX: IDDM,CHF,COPD,ANXIETY,HIGH LIPIDS Surgeries: Yes (EGD/COLONOSCOPY; CARDIAC CATH 09/18/17--NO INTERVENTION) Cardiac Respiratory: Yes (O2 AT 2-3L/NC) Pneumonia, Chronic Bronchitis, Sleep Apnea, COPD Currently Using CPAP: No Currently Using BIPAP: Yes Cardiac: Yes Cardiomyopathy, Chronic Edema/Swelling, Coronary Artery Disease, High Cholesterol, Hypertension Neurological: Yes Headaches /Migraines 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 Disorders: No 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 Disorders: Denies FUGITIVE DETECTIVE History: Menopausal Sexually Transmitted Disease: No HIV/AIDS: No Genitourinary: Yes Bladder Infection Gastrointestinal: Yes (GASTRITIS AND ESOPHAGEAL CANDIDIASIS 04/2017) Gastroesophageal Reflux, Gastrointestinal Bleed, Chronic Constipation, Chronic Diarrhea, Esophagitis, Ulcer Musculoskeletal: Yes (chronic shoulder and neck pain--OPIATE DEPENDENT;MINIMALLY AMBULATORY) Degenerate Disk Disease, Arthritis, Chronic Back Pain Endocrine: Yes (NIDDM; MORBID OBESITY) Diabetes, Non-Insulin dep HEENT: No Cancer: No Psychosocial: Yes (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; POLYSUBSTANCE ABUSE) Sleep Difficulties, Anxiety, Suicide Attempts, Bipolar, Depression Integumentary: No Blood Disorders: Yes (ANEMIA) Adverse Reaction/Blood Tranf: No Family Medical History Reviewed Nursing Family Hx Cancer 03 MOTHER, Onset:66 (LUNG ) 09 BROTHER (LUNG ) Congestive heart failure 03 FATHER Heart Disease, Cancer SOCIAL HISTORY : -SMOKING--3-4 PPD -ETOH--DENIES USE -DRUG USE--+ 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 0.9oz. [id number]; 41.00 BMI Method:Stated General Appearance: No Apparent Distress, WD/WN, Obese HEENT: PERRL/EOMI, Pharynx Normal Neck: Non Tender, Supple Respiratory: No Accessory Muscle Use, No Respiratory Distress, Wheezing (Few scattered) Cardiovascular: Regular Rate, Rhythm, No Murmur Gastrointestinal: Non Tender, Soft Back: Normal Inspection, No CVA Tenderness, No Vertebral Tenderness Extremity: Normal Range of Motion, Non Tender Neurologic/Psychiatric: Alert, Oriented x3 Skin: Normal Color, Warm/Dry Progress/Results/Core Measures Suspected Sepsis SIRS Temperature: Pulse: 88 Respiratory Rate: 18 Laboratory Tests 03/23/21 22:00: White Blood Count 9.7 Blood Pressure 130 /112 Mean: 95 Laboratory Tests 03/23/21 22:00: Creatinine 1.66H, Platelet Count 257, Total Bilirubin 0.3 Results/Orders Lab Results Laboratory Tests Test 03/23/21 22:00 03/23/21 22:32 03/23/21 23:00 03/23/21 23:45 Range/Units White Blood Count 9.7 4.3-11.0 10^3/uL Red Blood Count 3.83 3.80-5.11 10^6/uL Hemoglobin 11.0 L 11.5-16.0 g/dL Hematocrit 34 L 35-52 % Mean Corpuscular Volume 88 80-99 fL Mean Corpuscular Hemoglobin 29 25-34 pg Mean Corpuscular Hemoglobin Concent 33 32-36 g/dL Red Cell Distribution Width 13.6 10.0-14.5 % Platelet Count 257 130-400 10^3/uL Mean Platelet Volume 11.9 9.0-12.2 fL Immature Granulocyte % (Auto) 1 % Neutrophils (%) (Auto) 74 42-75 % Lymphocytes (%) (Auto) 19 12-44 % Monocytes (%) (Auto) 6 0-12 % Eosinophils (%) (Auto) 1 0-10 % Basophils (%) (Auto) 0 0-10 % Neutrophils # (Auto) 7.1 1.8-7.8 10^3/uL Lymphocytes # (Auto) 1.8 1.0-4.0 10^3/uL Monocytes # (Auto) 0.6 0.0-1.0 10^3/uL Eosinophils # (Auto) 0.1 0.0-0.3 10^3/uL Basophils # (Auto) 0.0 0.0-0.1 10^3/uL Immature Granulocyte # (Auto) 0.1 0.0-0.1 10^3/uL Sodium Level 129 L 135-145 MMOL/L Potassium Level 3.8 3.6-5.0 MMOL/L Chloride Level 88 L 98-107 MMOL/L Carbon Dioxide Level 26 21-32 MMOL/L Anion Gap 15 H 5-14 MMOL/L Blood Urea Nitrogen 17 7-18 MG/DL Creatinine 1.66 H 0.60-1.30 MG/DL Estimat Glomerular Filtration Rate 36 BUN/Creatinine Ratio 10 Glucose Level 742 *H 70-105 MG/DL Calcium Level 8.6 8.5-10.1 MG/DL Corrected Calcium 8.8 8.5-10.1 MG/DL Total Bilirubin 0.3 0.1-1.0 MG/DL Aspartate Amino Transf (AST/SGOT) 20 5-34 U/L Alanine Aminotransferase (ALT/SGPT) 32 0-55 U/L Alkaline Phosphatase 178 H 40-136 U/L Total Protein 6.4 6.4-8.2 GM/DL Albumin 3.7 3.2-4.5 GM/DL Urine Color YELLOW Urine Clarity CLEAR Urine pH 6.0 5-9 Urine Specific [place] 1.010 L 1.016-1.022 Urine Protein NEGATIVE NEGATIVE Urine Glucose (UA) 3+ H NEGATIVE Urine Ketones NEGATIVE NEGATIVE Urine Nitrite NEGATIVE NEGATIVE Urine Bilirubin NEGATIVE NEGATIVE Urine Urobilinogen 0.2 < = 1.0 MG/DL Urine Leukocyte Esterase NEGATIVE NEGATIVE Urine RBC (Auto) TRACE-I H NEGATIVE Urine RBC 0-2 /HPF Urine WBC NONE /HPF Urine Squamous Epithelial Cells 0-2 /HPF Urine Crystals NONE /LPF Urine Bacteria NEGATIVE /HPF Urine Casts NONE /LPF Urine Mucus NEGATIVE /LPF Urine Culture Indicated NO Glucometer 530 *H 491 *H 70-110 MG/DL My Orders Orders - CAT BILLINGS MD Insulin (Regular) Human (Novolin R (Per (03/23/21 22:02) Lactated Ringers (Lr 1000 Ml Iv Solution (03/23/21 22:04) Cbc With Automated Diff (03/23/21 22:23) Comprehensive Metabolic Panel (03/23/21 22:23) Ua Culture If Indicated (03/23/21 22:23) Lactated Ringers (Lr 1000 Ml Iv Solution (03/23/21 22:23) Ed Iv/Invasive Line Start (03/23/21 22:23) Insulin (Regular) Human (Novolin R (Per (03/23/21 22:23) Lorazepam Tablet (Ativan Tablet) (03/23/21 22:23) Insulin (Regular) Human (Novolin R (Per (03/23/21 23:02) Insulin (Regular) Human (Novolin R (Per (03/23/21 23:03) Lactated Ringers (Lr 1000 Ml Iv Solution (03/24/21 00:00) Insulin (Regular) Human (Novolin R (Per (03/23/21 23:48) Medications Given in ED Current Medications Medications Dose Ordered Sig/Vladimir Route Start Time Stop Time Status Last Admin Dose Admin Lactated Ringer's 1,000 ml @ 0 mls/hr Q0M ONCE IV 03/24/21 00:00 03/24/21 00:01 DC 03/24/21 00:09 999 MLS/HR Vital Signs/I&O 03/23/21 03/23/21 21:55 22:20 Temp 36.4 36.4 Pulse 88 81 Resp 18 18 B/P (MAP) 130/112 (118) 119/83 Pulse Ox 99 100 O2 Delivery Nasal Cannula Nasal Cannula O2 Flow Rate 3.00 3.00 Capillary Refill : Less Than 3 Seconds Blood Pressure Mean: 95 Point of Care Testing Blood Glucose Action Taken: >600, RN AND DOC NOTIFIED Progress Note : Progress Note GatedSeen and evaluated. IV, labs, LR 1 L bolus, insulin 10 units IV and UA ordered. Lorazepam 2 mg p.o. ordered. Monitor patient. 2350: We have a second dose of insulin at 15 units subcu and repeat blood sugar was 491. We will go ahead and give an additional liter of LR and repeat dose of insulin 15 units subcu to get her into more acceptable range and then she should be able to be safely discharged back to long-term care facility with continued care through her primary care provider. Monitor patient. 0127: blood sugar 341 now. I did discuss with the nurse at the [facility] regarding sliding scale. I will write short sliding scale orders and have them call PCP for further sliding scale orders. Discharged back to long[facility] care facility with return precautions. Nursing report given by nursing and by me. Patient verbalized understanding instructions and agreement with plan. Departure Impression Primary Impression: Hyperglycemia Disposition: 01 HOME, SELF-CARE Condition: Stable Departure-Patient Inst. Decision time for Depature: 01:29 Referrals: [facility] (PCP/Family) Primary Care Physician Patient Instructions: High Blood Sugar, Adult ED Add. Discharge Instructions: All discharge instructions reviewed with patient and/or family. Voiced understanding. Use sliding scale as directed. Call PCP for further orders per sliding scale and insulin management. Return for worse pain, fever, vomiting, weakness, breathing problems or other concerns as needed. Continue previously prescribed medicines as directed. Copy Copies To 1: THOMAS WOLF MD, TIMOTHY D MD Mar 23, 2021 22:42
[2021-03-23 22:44] LABS: BACTERIA,URINE NEGATIVE /HPF; RBC,URINE 0-2 /HPF; SQUAMOUS EPITHELIAL CELL,UR 0-2 /HPF
[2021-03-23] MEDS ORDERED: inSUlin (REGULAR) HUMAN 1 UNIT/0.01 ML (CHARGE PER UNIT) SC STA ×2 (23:02→23:48)
[2021-03-24] MEDS ORDERED: LACTATED RINGERS 1,000 ML IV ONE
[2021-03-24 02:10] VITALS: BP 114/97
== END 2021-03-24 02:04 | disposition home or self-care (01) ==
LOC: EDUNIT# 21:55 → ER 21:56
DX: E11.65 Type 2 diabetes mellitus with hyperglycemia (principal); G47.30 Sleep apnea, unspecified; J44.9 Chronic obstructive pulmonary disease, unspecified; E78.00 Pure hypercholesterolemia, unspecified; K21.9 Gastro-esophageal reflux disease without esophagitis; F41.9 Anxiety disorder, unspecified; I25.10 Atherosclerotic heart disease of native coronary artery without angina pectoris; F31.9 Bipolar disorder, unspecified; E66.01 Morbid (severe) obesity due to excess calories; G89.29 Other chronic pain; M54.2 Cervicalgia; M54.9 Dorsalgia, unspecified; Z68.41 Body mass index [BMI] 40.0-44.9, adult; Z79.82 Long term (current) use of aspirin; Z79.899 Other long term (current) drug therapy; Z79.891 Long term (current) use of opiate analgesic
CPT/HCPCS: 36415; 80053; 81000; 82947; 85025; 96361; 96372; 96374

== ENCOUNTER 2021-04-13 21:55 | Emergency (ER) | payer MEDICARE, MEDICAID ==
[~2021-04-13] VITALS: Ht 179 cm; Wt 131.0 kg
--- NOTE | 2021-04-13 22:28 | ED Back Pain ---
General Chief Complaint: Glucose Problems Stated Complaint: BACK PAIN Source of Information: Patient Exam Limitations: No Limitations History of Present Illness Date Seen by Provider: Apr 13, 2021 Time Seen by Provider: 22:12 Initial Comments Patient is a 56-year-old female who presents to the emergency department today with a chief complaint of right flank pain/right back pain. Patient states that she was climbing into bed about 1 or 2:00 this afternoon and felt a pop in the right side of her back and then had immediate pain. She was given some pain medications at the halfway at which she resides without any relief of symptoms. She had more medicine at 8:00 and states that the pain has continued. She does endorse burning with urination and urinary frequency today. She has never had a kidney stone. She denies any nausea or vomiting. No diarrhea. No numbness, tingling or weakness in her legs. No loss or of bowel or bladder function. No perineal anesthesia. The pain is not midline. She has never had pain like this before. Denies any recent trauma or falls. All other review of systems reviewed and negative except as stated. Location: Paraspinous Muscles (right sided) Timing/Duration: 4-6 Hours Severity: Moderate Pain/Injury Location: Back (right flank) Method of Injury: Unknown Modifying Factors: Improves With Immobilization Associated Symptoms: No numbness in legs/feet, No tingling in legs/feet, No sensory/motor loss; lower back pain (flank right); No loss of bladder control, No loss of bowel control Allergies and Home Medications Allergies Coded Allergies: buspirone (Verified Allergy, Mild, 05/02/17) Made"legs Shaky" amitriptyline (Verified Allergy, Unknown, 05/02/17) " MAKES ME DO WEIRD THINGS LIKE WALK IN MY SLEEP AND HAVE HALLUCINATIONS." amlodipine (Verified Allergy, Unknown, 03/20/21) Patient Home Medication List Home Medication List Reviewed: Yes Acetaminophen (Tylenol) 325 Mg Tablet, 650 MG PO Q4H PRN for PAIN-MILD (1-4), (Reported) Entered as Reported by: SEAN ARTEAGA on 03/20/21 1008 Albuterol Sulfate (Proair Hfa) 1 Puff Puff, 2 PUFF IH Q4H PRN for SHORTNESS OF BREATH, (Reported) Entered as Reported by: SEAN ARTEAGA on 03/20/21 1008 Aspirin (Aspirin EC) 81 Mg Tablet.dr, 81 MG PO DAILY, (Reported) Entered as Reported by: HARSH PARRISH on 11/19/17 1603 Benzonatate (Benzonatate) 100 Mg Capsule, 100 MG PO QID, (Reported) Entered as Reported by: DANIELLE RICHARD on 07/31/20 1616 Bumetanide (Bumetanide) 2 Mg Tablet, 2 MG PO DAILY, (Reported) Entered as Reported by: SEAN ARTEAGA on 03/20/21 1008 Carvedilol (Carvedilol) 3.125 Mg Tablet, 3.125 MG PO BID, (Reported) Entered as Reported by: SEAN ARTEAGA on 03/20/21 1008 Fluoxetine HCl (Fluoxetine HCl) 20 Mg Tablet, 40 MG PO DAILY, (Reported) Entered as Reported by: SEAN ARTEAGA on 03/20/21 1008 Glimepiride (Glimepiride) 1 Mg Tablet, 1 MG PO DAILY PRN for WHEN TAKING PREDNISONE, (Reported) Entered as Reported by: HARSH PARRISH on 04/29/17 1346 Hydrocodone/Acetaminophen (Hydrocodone-Acetamin 10-325 mg) 1 Each Tablet, 1 EACH PO Q6H PRN for PAIN-MODERATE (5-7), (Reported) Entered as Reported by: SEAN ARTEAGA on 03/20/21 1023 Lorazepam (Ativan) 2 Mg Tablet, 2 MG PO Q6H, (Reported) Entered as Reported by: SEAN ARTEAGA on 03/20/21 1008 Menthol (Biofreeze) 118 Ml Gel..ml., 1 APPLIC TP UD PRN for PAIN-BREAKTHROUGH, (Reported) Entered as Reported by: DANIELLE RICHARD on 12/18/20 1129 Multivitamin/Iron/Folic Acid (Centrum Women Tablet) 1 Each Tablet, 1 EACH PO DAILY, (Reported) Entered as Reported by: DANIELLE RICHARD on 12/18/20 1129 Nitrofurantoin Macrocrystal (Nitrofurantoin) 100 Mg Capsule, 100 MG PO HS, (Reported) Entered as Reported by: SEAN ARTEAGA on 03/20/21 1008 Olanzapine (Olanzapine) 10 Mg Tablet, 10 MG PO HS, (Reported) Entered as Reported by: DANIELLE RICHARD on 07/31/20 1616 Oxybutynin Chloride (Oxybutynin Chloride) 5 Mg Tablet, 5 MG PO BID, (Reported) Entered as Reported by: SEAN ARTEAGA on 03/20/21 1008 Pantoprazole Sodium (Pantoprazole Sodium) 40 Mg Tablet.dr, 40 MG PO DAILY, (Reported) Entered as Reported by: SEAN ARTEAGA on 03/20/21 1008 Prednisone (Prednisone) 10 Mg Tab, 10 MG PO DAILY, (Reported) Entered as Reported by: DANIELLE RICHARD on 07/31/20 161 Rosuvastatin Calcium (Rosuvastatin Calcium) 20 Mg Tablet, 20 MG PO HS, (Reporte d) Entered as Reported by: SEAN ARTEAGA on 03/20/21 100 Review of Systems Constitutional: see HPI EENTM: no symptoms reported Respiratory: no symptoms reported Cardiovascular: no symptoms reported Gastrointestinal: no symptoms reported Genitourinary: dysuria, frequency Musculoskeletal: back pain Skin: no symptoms reported Psychiatric/Neurological: No Symptoms Reported All Other Systems Reviewed Negative Unless Noted: Yes Past Itwnejv-Yojidb-Xspdtv Hx Immunizations Up To Date Tetanus Booster (TDap): Unknown First/Initial COVID19 Vaccinat: 08/03/20 Second COVID19 Vaccination Dustin: 08/27 Third COVID19 Vaccination Date: 08/03/20 Seasonal Allergies Seasonal Allergies: No Past Medical History Surgery/Hospitalization HX: IDDM,CHF,COPD,ANXIETY,HIGH LIPIDS Surgeries: Yes (EGD/COLONOSCOPY; CARDIAC CATH 09/18/17--NO INTERVENTION) Cardiac Respiratory: Yes (O2 AT 2-3L/NC) Pneumonia, Chronic Bronchitis, Sleep Apnea, COPD Currently Using CPAP: No Currently Using BIPAP: Yes Cardiac: Yes Cardiomyopathy, Chronic Edema/Swelling, Coronary Artery Disease, High Cholesterol, Hypertension Neurological: Yes Headaches /Migraines 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 Disorders: No 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 Disorders: Denies DYNAMICS [employer] History: Menopausal Sexually Transmitted Disease: No HIV/AIDS: No Genitourinary: Yes Bladder Infection Gastrointestinal: Yes (GASTRITIS AND ESOPHAGEAL CANDIDIASIS 04/2017) Gastroesophageal Reflux, Gastrointestinal Bleed, Chronic Constipation, Chronic Diarrhea, Esophagitis, Ulcer Musculoskeletal: Yes (chronic shoulder and neck pain--OPIATE DEPENDENT;MINIMALLY AMBULATORY) Degenerate Disk Disease, Arthritis, Chronic Back Pain Endocrine: Yes (NIDDM; MORBID OBESITY) Diabetes, Non-Insulin dep HEENT: No Cancer: No Psychosocial: Yes (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; POLYSUBSTANCE ABUSE) Sleep Difficulties, Anxiety, Suicide Attempts, Bipolar, Depression Integumentary: No Blood Disorders: Yes (ANEMIA) Adverse Reaction/Blood Tranf: No Family Medical History Cancer 03 MOTHER, Onset:66 (LUNG ) 09 BROTHER (LUNG ) Congestive heart failure 03 FATHER Heart Disease, Cancer SOCIAL HISTORY : -SMOKING--3-4 PPD -ETOH--DENIES USE -DRUG USE--+ 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 0.9oz. 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 Norm as Tested Skin: Normal Color, Warm/Dry Progress/Results/Core Measures Results/Orders Lab Results Laboratory Tests Test 04/13/21 22:29 Range/Units Urine Color YELLOW Urine Clarity CLEAR Urine pH 5.5 5-9 Urine Specific [place] 1.025 H 1.016-1.022 Urine Protein NEGATIVE NEGATIVE Urine Glucose (UA) NEGATIVE NEGATIVE Urine Ketones NEGATIVE NEGATIVE Urine Nitrite NEGATIVE NEGATIVE Urine Bilirubin NEGATIVE NEGATIVE Urine Urobilinogen 0.2 < = 1.0 MG/DL Urine Leukocyte Esterase NEGATIVE NEGATIVE Urine RBC (Auto) TRACE-I H NEGATIVE Urine RBC RARE /HPF Urine WBC NONE /HPF Urine Squamous Epithelial Cells 5-10 /HPF Urine Crystals NONE /LPF Urine Bacteria TRACE /HPF Urine Casts PRESENT /LPF Urine Hyaline Casts 2-5 H /LPF Urine Mucus MODERATE H /LPF Urine Culture Indicated NO My Orders Orders - JOE GAMBLE MD Ua Culture If Indicated (04/13/21 22:24) Orphenadrine Inj (Ed Only) (Norflex Inje (04/13/21 22:30) Hydrocodone/Apap 10/325 Tablet (Lortab 1 (04/13/21 22:30) Vital Signs/I&O 04/13/21 22:15 Temp 36.9 Pulse 107 Resp 18 B/P (MAP) 129/86 (100) Pulse Ox 94 O2 Delivery Room Air Progress Progress Note : Time: 23:14 Progress Note Patient's urinalysis is normal. No evidence of urinary tract infection, no significant hematuria. Her tenderness is reproducible in the right flank. I do not suspect any spine issue. She is neurologically normal. Recommended gcyd-aso-gbihzuo pain patches/heat patches from [employer] or [employer] and her routine pain medications at the halfway. Patient verbalized understanding. She is comfortable with plan of care. All questions are sought and answered. Departure Impression Primary Impression: Right low back pain Qualified Codes: M54.50 - Low back pain, unspecified Disposition: 01 HOME, SELF-CARE Condition: Stable Departure-Patient Inst. Decision time for Depature: 23:15 Referrals: [facility] (PCP/Family) Primary Care Physician Patient Instructions: Acute Pain, Adult (DC) Add. Discharge Instructions: Continue your pain medications as previously prescribed at the halfway. You should get tqiu-tmw-ufgiahr pain patches such as "Salonpas" patches or heat patches and apply those to the area that is uncomfortable. Return to the emergency room for any fever, rashes, worsening pain or new emergent concerning symptoms. Follow-up with your primary care provider next week to further evaluate the source of this pain. Copy Copies To 1: CONNOR JOHNSTON KATHRYN M MD Apr 13, 2021 22:27
[2021-04-13] MEDS ORDERED: ORPHENADRINE 60 MG/2 ML (NORFLEX) AMP (ED ONLY) IM ONE (22:30)
[2021-04-13 22:34] LABS: BILIRUBIN,URINE NEGATIVE (NEGATIVE); CLARITY,URINE CLEAR; COLOR,URINE YELLOW; GLUCOSE, URINE (UA) NEGATIVE (NEGATIVE); KETONES,URINE NEGATIVE (NEGATIVE); LEUKOCYTE ESTERASE ,URINE NEGATIVE (NEGATIVE); NITRITE,URINE NEGATIVE (NEGATIVE); PH,URINE 5.5 (5-9); PROTEIN,URINE NEGATIVE (NEGATIVE)
[2021-04-13 22:41] LABS: BACTERIA,URINE TRACE /HPF; RBC,URINE RARE /HPF
[2021-04-14 00:20] VITALS: BP 129/86
== END 2021-04-14 00:20 | disposition home or self-care (01) ==
LOC: EDUNIT# 21:55 → ER 21:59
DX: G89.29 Other chronic pain (principal); M54.50 Low back pain, unspecified; G47.30 Sleep apnea, unspecified; J44.9 Chronic obstructive pulmonary disease, unspecified; E78.00 Pure hypercholesterolemia, unspecified; I25.10 Atherosclerotic heart disease of native coronary artery without angina pectoris; I11.0 Hypertensive heart disease with heart failure; I50.9 Heart failure, unspecified; K21.9 Gastro-esophageal reflux disease without esophagitis; E11.9 Type 2 diabetes mellitus without complications; F31.9 Bipolar disorder, unspecified; F41.9 Anxiety disorder, unspecified; E66.01 Morbid (severe) obesity due to excess calories; Z68.41 Body mass index [BMI] 40.0-44.9, adult; Z79.82 Long term (current) use of aspirin; Z79.899 Other long term (current) drug therapy; Z79.891 Long term (current) use of opiate analgesic
CPT/HCPCS: 81000; 99284

== ENCOUNTER → 2021-05-07 | Outpatient (CLI) | payer MEDICARE, MEDICAID ==
[~2021-05-07] MED LIST changes: +FLUC100T10 PO; -FLUC100T6 PO
--- NOTE | 2021-05-07 10:59 | Diagnostic Imaging Report ---
INDICATION: Postmenopausal state. COMPARISON: None available. FINDINGS: AP Spine L1-L4: [BMD (g/cm2): 1.236] [T-Score: 0.3] [Z-Score: 0.1] [BMD Previous: na] [BMD % Change: na] LT Hip Neck: [BMD (g/cm2): 0.773] [T-Score: -1.9] [Z-Score: -1.6] LT Hip Total: [BMD (g/cm2):0.914] [T-Score:-0.7] [Z-Score: -0.8] [BMD Previous: na] [BMD % Change: na] RT Hip Neck: [BMD (g/cm2):0.830] [T-Score:-1.5] [Z-Score:-1.1] RT Hip Total: [BMD (g/cm2):0.933] [T-score:-0.6] [Z-Score:-0.7] [BMD Previous:na] [BMD % Change:na] *Indicates significant change from prior examination based on 95% confidence level. World Health Organization criteria for BMD interpretation classify patients as Normal (T-score at or above -1.0), Osteopenic (T-score between -1.0 and -2.5) or Osteoporotic (T-score at or below -2.5). LIMITATIONS AND MODIFICATION: None. FRACTURE RISK (FRAX SCORE): The ten year probability of (%): Major Osteoporotic Fracture: [7.4] Hip Fracture: [1.3] IMPRESSION: 1. Osteopenia (Low bone mass). 2. Baseline examination. 3. See below National Osteoporosis Foundation guidelines on when to potentially initiate pharmacologic therapy. Based on the National Osteoporosis Foundation Guidelines, pharmacologic treatment should be initiated in any of the following, unless clinical conditions suggest otherwise: * Any patient with prior fragility fracture of the hip or vertebrae. A spine fracture indicates 5X risk for subsequent spine fracture and 2X risk for subsequent hip fracture. * Osteoporosis (T-score <-2.5). * Postmenopausal women and men age 50 and older with low bone mass/osteopenia (T-score between -1.0 and -2.5) by DXA and 10-year major osteoporotic fracture greater than 20% or a 10-year probability of hip fracture greater than 3%. These fracture risks are supplied above in the FRAX score, if applicable. * Clinician judgement and/or patient preferences may indicate treatment for people with 10-year fracture probabilities above or below these levels. Dictated by: Dictated on workstation # [id number]
== END ==
LOC: RAD 10:30
PROVIDERS: ATTEND Nurse Practitioner Community Health
DX: M85.80 Other specified disorders of bone density and structure, unspecified site (principal); Z78.0 Asymptomatic menopausal state
CPT/HCPCS: 77080

== ENCOUNTER → 2021-08-08 | Outpatient (CLI) | payer MEDICARE, MEDICAID ==
[~2021-08-08] MED LIST changes: +BUPR-105 PO; -BUPR150T14 PO
[2021-08-08 21:20] LABS: BILIRUBIN,URINE NEGATIVE (NEGATIVE); CLARITY,URINE SL CLOUDY; COLOR,URINE YELLOW; GLUCOSE, URINE (UA) NEGATIVE (NEGATIVE); KETONES,URINE NEGATIVE (NEGATIVE); LEUKOCYTE ESTERASE ,URINE NEGATIVE (NEGATIVE); NITRITE,URINE POSITIVE (NEGATIVE); PH,URINE 5.5 (5-9); PROTEIN,URINE NEGATIVE (NEGATIVE)
[2021-08-08 21:37] LABS: BACTERIA,URINE LARGE /HPF; RBC,URINE RARE /HPF; SQUAMOUS EPITHELIAL CELL,UR 0-2 /HPF
== END ==
LOC: LAB 21:11
PROVIDERS: ATTEND Nurse Practitioner Community Health
DX: N39.0 Urinary tract infection, site not specified (principal); R10.9 Unspecified abdominal pain; R50.9 Fever, unspecified
CPT/HCPCS: 81000; 87077; 87088; 87186

== ENCOUNTER 2021-10-10 09:11 | Outpatient (CLI) | payer MEDICARE, MEDICAID ==
[~2021-10-10] VITALS: Ht 175.3 cm; Wt 147.0 kg
[2021-10-10] MEDS ORDERED: ONDANSETRON 4 MG/2 ML (SDV) Z0FRAN IV PRN (09:45)
[2021-10-10] MEDS ORDERED: diphenhydrAMINE 50 MG/ML INJ (BENADRYL) IV PRN (09:45)
[2021-10-10] MEDS ORDERED: EPINEPHrine INJECTION 1 MG/ML AMP IM PRN (09:45)
[2021-10-10] MEDS ORDERED: BEBTELOVIMAB 175 MG/2 ML VIAL IV ONE (09:45)
[2021-10-10] MEDS ORDERED: ACETAMINOPHEN 500 MG TAB (TYLENOL) PO PRN (09:45)
[2021-10-10 10:00] VITALS: BP 155/86
== END 2021-10-10 11:31 | disposition home or self-care (01) ==
LOC: INFUSION 09:11
PROVIDERS: ATTEND Nurse Practitioner Community Health
DX: U07.1 COVID-19 (principal)

== ENCOUNTER → 2021-11-05 | Outpatient (CLI) | payer MEDICARE, MEDICAID | LOC: CARD 13:25 | PROVIDERS: ATTEND Physician Assistant | DX: I11.9 Hypertensive heart disease without heart failure (principal); I35.1 Nonrheumatic aortic (valve) insufficiency | CPT/HCPCS: 93306 ==

== ENCOUNTER 2021-11-13 05:32 | Outpatient (CLI) | payer MEDICARE, MEDICAID ==
[~2021-11-13] VITALS: Ht 175.3 cm; Wt 153.3 kg
[~2021-11-13 05:32] MED LIST changes: +POTA-177 PO; -POTA10TA37 PO
[2021-11-14] MEDS ORDERED: IPRA3AMP31 IH (10:48)
[2021-11-14] MEDS ORDERED: INSU100I51 SQ (10:48)
[2021-11-14] MEDS ORDERED: CHOL200078 PO (10:48)
[2021-11-14] MEDS ORDERED: INSU100I29 SQ (10:48)
[2021-11-14] MEDS ORDERED: METH1TAB21 PO (10:48)
[2021-11-14] MEDS ORDERED: NYST1000 PO (10:48)
[2021-11-14] MEDS ORDERED: METF-397 PO (10:48)
[2021-11-14] MEDS ORDERED: POTA-53 PO (10:48)
[2021-11-14] MEDS ORDERED: PROM12.511 PO (10:48)
[2021-11-14] MEDS ORDERED: RIZA10TA37 PO (10:48)
[2021-11-14] MEDS ORDERED: DULA0.75 SQ (10:48)
[2021-11-14] MEDS ORDERED: FLUT1BLS3 IH (10:48)
[2021-11-14] MEDS ORDERED: DULO30CA49 PO (10:48)
[2021-11-14] MEDS ORDERED: CLON1TAB13 PO (10:48)
== END 2021-11-14 14:18 | disposition home or self-care (01) ==
LOC: PREOP 05:32
PROVIDERS: ATTEND Surgery
DX: Z01.818 Encounter for other preprocedural examination (principal)

== ENCOUNTER 2021-11-22 15:24 | Emergency (ER) | payer MEDICARE, MEDICAID ==
[~2021-11-22] VITALS: Ht 177.8 cm; Wt 153.3 kg
[~2021-11-22 15:24] MED LIST changes: +CHOL200078 PO; +DULO30CA49 PO; +FLUT1BLS3 IH; +INSU100I29 SQ; +INSU100I51 SQ; +METF-397 PO; +METH1TAB21 PO; +NYST1000 PO; +RIZA10TA37 PO
[2021-11-22] MEDS ORDERED: morphine INJ 10 MG/ML 1ML (SYR OR VIAL) IV STA (15:36)
--- NOTE | 2021-11-22 15:41 | ED Chest Pain ---
General Stated Complaint: CP History of Present Illness Date Seen by Provider: Nov 22, 2021 Time Seen by Provider: 15:26 Initial Comments Here with 2 to 3 hours of central chest pain that is now going to her left armpit. Also short of breath. Arrives from [facility] where she is a resident. Reports taking all of her medicines as directed. She thinks she might be on aspirin but its not on her med list. She states that she had COVID 3 weeks ago and has had intermittent chest pain since. Denies nausea, vomiting or diarrhea. Denies sore throat but does chronic cough and she is chronically dependent on oxygen at 4-1/2 L via nasal cannula. Timing/Duration: 1-3 hours, constant Severity/Quality: moderate, pressure Location: central Radiation: arms (Left axilla) Activities at Onset: none Prior CP/Workup: cardiac cath, echocardiography Modifying Factors: improves with oxygen, improves with rest ASA po SAP HANA ARCHITECT: No NTG SL SAP HANA ARCHITECT: No Associated Symptoms: No back pain, No fever/chills; shortness of breath; No weakness Allergies and Home Medications Allergies Coded Allergies: buspirone (Verified Allergy, Mild, 05/02/17) Made"legs Shaky" amitriptyline (Verified Allergy, Unknown, 05/02/17) " MAKES ME DO WEIRD THINGS LIKE WALK IN MY SLEEP AND HAVE HALLUCINATIONS." amlodipine (Verified Allergy, Unknown, 03/20/21) Patient Home Medication List Home Medication List Reviewed: Yes Acetaminophen (Tylenol) 325 Mg Tablet, 650 MG PO Q4H PRN for PAIN-MILD (1-4), (Reported) Entered as Reported by: SEAN ARTEAGA on 03/20/21 1008 Albuterol Sulfate (Proair Hfa) 1 Puff Puff, 2 PUFF IH Q4H PRN for SHORTNESS OF BREATH, (Reported) Entered as Reported by: SEAN ARTEAGA on 03/20/21 1008 Aspirin (Aspirin EC) 81 Mg Tablet.dr, 81 MG PO DAILY, (Reported) Entered as Reported by: HARSH PARRISH on 11/19/17 1603 Benzonatate (Benzonatate) 100 Mg Capsule, 100 MG PO QID, (Reported) Entered as Reported by: DANIELLE RICHARD on 07/31/20 1616 Bumetanide (Bumetanide) 2 Mg Tablet, 2 MG PO DAILY, (Reported) Entered as Reported by: SEAN ARTEAGA on 03/20/21 100 Carvedilol (Carvedilol) 3.125 Mg Tablet, 3.125 MG PO BID, (Reported) Entered as Reported by: SEAN ARTEAGA on 03/20/21 100 Cholecalciferol (Vitamin D3) (Vitamin D3) 50 Mcg (2000 Unit) Tab.chew, 50 MCG PO DAILY, (Reported) Entered as Reported by: CARLOS BANSAL on 11/14/21 104 Clonazepam (Clonazepam) 1 Mg Tablet, 1 MG PO BID PRN, (Reported) Entered as Reported by: CARLOS BANSAL on 11/14/21 104 Dulaglutide (Trulicity) 0.75 Mg/0.5 Ml Pen.injctr, 0.75 MG SQ WEEK, (Reported) Entered as Reported by: CARLOS BANSAL on 11/14/21 104 Duloxetine HCl (Duloxetine HCl) 30 Mg Capsule.dr, 30 MG PO DAILY, (Reported) Entered as Reported by: CARLOS BANSAL on 11/14/21 104 Fluticasone/Umeclidin/Vilanter (Trelegy Ellipta 100-62.5-25) 100-62.5 Blst.w.dev, 1 EACH IH DAILY, (Reported) Entered as Reported by: CARLOS BANSAL on 11/14/21 104 Glimepiride (Glimepiride) 1 Mg Tablet, 1 MG PO DAILY PRN for WHEN TAKING PREDNISONE, (Reported) Entered as Reported by: HARSH PARRISH on 04/29/17 1346 Insulin Detemir (Levemir Flextouch) 100 Unit/Ml (3 Ml) Insuln.pen, 25 UNIT SQ BID, (Reported) Entered as Reported by: CARLOS BANSAL on 11/14/21 1048 Insulin Regular, Human (NovoLIN R Flexpen) 100 Unit/Ml (3 Ml) Insuln.pen, 15 UNIT SQ TIDWM, (Reported) Entered as Reported by: CARLOS BANSAL on 11/14/21 104 Ipratropium/Albuterol Sulfate (Iprat-Albut 0.5-3(2.5) mg/3 ml) 0.5 Mg-3 Mg (2.5 Mg Base)/3 Ml Ampul.neb, 3 ML IH Q6H PRN for SHORTNESS OF BREATH, (Reported) Entered as Reported by: CARLOS BANSAL on 11/14/21 104 Menthol (Biofreeze) 118 Ml Gel..ml., 1 APPLIC TP UD PRN for PAIN-BREAKTHROUGH, (Reported) Entered as Reported by: DANIELLE RICHARD on 12/18/20 112 Metformin HCl (Metformin HCl) 500 Mg Tablet, 1,000 MG PO BID, (Reported) Entered as Reported by: CARLOS BANSAL on 11/14/21 104 Methenamine Hippurate (Methenamine Hippurate) 1 Gram Tablet, 1 GM PO BID, (Reported) Entered as Reported by: CARLOS BANSAL on 11/14/21 104 Multivitamin/Iron/Folic Acid (Centrum Women Tablet) 1 Each Tablet, 1 EACH PO DAILY, (Reported) Entered as Reported by: DANIELLE RICHARD on 12/18/20 112 Nystatin (Nystatin) 100,000 Unit/Ml Oral.susp, 5 ML PO HS, (Reported) Entered as Reported by: CARLOS BANSAL on 11/14/21 104 Olanzapine (Olanzapine) 10 Mg Tablet, 10 MG PO HS, (Reported) Entered as Reported by: DANIELLE RICHARD on 07/31/20 161 Oxybutynin Chloride (Oxybutynin Chloride) 5 Mg Tablet, 5 MG PO BID, (Reported) Entered as Reported by: SEAN ARTEAGA on 03/20/21 100 Pantoprazole Sodium (Pantoprazole Sodium) 40 Mg Tablet.dr, 40 MG PO DAILY, (Reported) Entered as Reported by: SEAN ARTEAGA on 03/20/21 100 Potassium Chloride (K-Tab ER) 20 Meq Tablet.er, 20 MEQ PO DAILY, (Reported) Entered as Reported by: CARLOS BANSAL on 11/14/21 104 Prednisone (Prednisone) 10 Mg Tab, 10 MG PO DAILY, (Reported) Entered as Reported by: DANIELLE RICHARD on 07/31/20 161 Promethazine HCl (Promethazine HCl) 12.5 Mg Tablet, 12.5 MG PO Q6H, (Reported) Entered as Reported by: CARLOS BANSAL on 11/14/21 1048 Rizatriptan Benzoate (Rizatriptan) 10 Mg Tablet, 10 MG PO DAILY, (Reported) Entered as Reported by: CARLOS BANSAL on 11/14/21 1048 Rosuvastatin Calcium (Rosuvastatin Calcium) 20 Mg Tablet, 20 MG PO HS, (Reported) Entered as Reported by: SEAN ARTEAGA on 03/20/21 1008 Review of Systems Review of Systems Constitutional: see HPI; No chills, No fever EENTM: No Nose Congestion, No Throat Pain Respiratory: Cough, Shortness of Air Cardiovascular: No Symptoms Reported Gastrointestinal: No Symptoms Reported Genitourinary: No Symptoms Reported Musculoskeletal: No joint pain, No muscle pain Skin: No change in color, No lesions All Other Systems Reviewed Negative Unless Noted: Yes Past Vspljog-Bhnkgt-Wmvgxe Hx Patient Social History Tobacco Use?: No Use of E-Cig and/or Vaping dev: Yes E-Cig or Vaping type used: Nicotine Substance use?: No Alcohol Use?: No Immunizations Up To Date Tetanus Booster (TDap): Unknown First/Initial COVID19 Vaccinat: 08/03/20 Second COVID19 Vaccination Dustin: 08/27 Third COVID19 Vaccination Date: 08/03/20 Seasonal Allergies Seasonal Allergies: No Past Medical History Surgery/Hospitalization HX: IDDM,CHF,COPD,ANXIETY,HIGH LIPIDS Surgeries: Yes (EGD/COLONOSCOPY; CARDIAC CATH 09/18/17--NO INTERVENTION) Cardiac Respiratory: Yes (O2 AT 4L/NC) Pneumonia, Chronic Bronchitis, Sleep Apnea, COPD Currently Using CPAP: No Currently Using BIPAP: Yes Cardiac: Yes Cardiomyopathy, Chronic Edema/Swelling, Coronary Artery Disease, High Cholesterol, Hypertension Neurological: Yes Headaches /Migraines 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 Disorders: No 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 Disorders: Denies 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 Sexually Transmitted Disease: No HIV/AIDS: No Genitourinary: Yes Bladder Infection Gastrointestinal: Yes (GASTRITIS AND ESOPHAGEAL CANDIDIASIS 04/2017) Gastroesophageal Reflux, Gastrointestinal Bleed, Chronic Constipation, Chronic Diarrhea, Esophagitis, Ulcer Musculoskeletal: Yes (chronic shoulder and neck pain--OPIATE DEPENDENT;MINIMALLY AMBULATORY) Degenerate Disk Disease, Arthritis, Chronic Back Pain Endocrine: Yes (NIDDM; MORBID OBESITY) Diabetes, Non-Insulin dep HEENT: No Cancer: No Psychosocial: Yes (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; POLYSUBSTANCE ABUSE) Sleep Difficulties, Anxiety, Suicide Attempts, Bipolar, Depression Integumentary: No Blood Disorders: Yes (ANEMIA) Adverse Reaction/Blood Tranf: No Family Medical History Reviewed Nursing Family Hx Cancer 03 MOTHER, Onset:66 (LUNG ) 09 BROTHER (LUNG ) Congestive heart failure 03 FATHER Heart Disease, Cancer SOCIAL HISTORY : -SMOKING--3-4 PPD -ETOH--DENIES USE -DRUG USE--+ 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 0.9oz. 89.792624dq; 49.88 BMI Method:Stated General Appearance: No Apparent Distress, WD/WN HEENT: PERRL/EOMI, Pharynx Normal Neck: Non Tender, Supple Respiratory: Accessory Muscle Use, Expiration, Wheezing Cardiovascular: Regular Rate, Rhythm, No Murmur Gastrointestinal: Non Tender, Soft Extremity: Normal Range of Motion, Non Tender Neurologic/Psychiatric: Alert, Oriented x3 Skin: Normal Color, Warm/Dry Progress/Results/Core Measures Results/Orders Lab Results Laboratory Tests Test 11/22/21 15:45 11/22/21 18:16 Range/Units White Blood Count 13.8 H 4.3-11.0 10^3/uL Red Blood Count 3.84 3.80-5.11 10^6/uL Hemoglobin 10.3 L 11.5-16.0 g/dL Hematocrit 32 L 35-52 % Mean Corpuscular Volume 83 80-99 fL Mean Corpuscular Hemoglobin 27 25-34 pg Mean Corpuscular Hemoglobin Concent 32 32-36 g/dL Red Cell Distribution Width 14.6 H 10.0-14.5 % Platelet Count 287 130-400 10^3/uL Mean Platelet Volume 10.0 9.0-12.2 fL Immature Granulocyte % (Auto) 2 % Neutrophils (%) (Auto) 80 H 42-75 % Lymphocytes (%) (Auto) 12 12-44 % Monocytes (%) (Auto) 6 0-12 % Eosinophils (%) (Auto) 0 0-10 % Basophils (%) (Auto) 0 0-10 % Neutrophils # (Auto) 10.9 H 1.8-7.8 10^3/uL Lymphocytes # (Auto) 1.7 1.0-4.0 10^3/uL Monocytes # (Auto) 0.8 0.0-1.0 10^3/uL Eosinophils # (Auto) 0.1 0.0-0.3 10^3/uL Basophils # (Auto) 0.0 0.0-0.1 10^3/uL Immature Granulocyte # (Auto) 0.2 H 0.0-0.1 10^3/uL Prothrombin Time 12.1 L 12.2-14.7 SEC INR Comment 0.9 0.8-1.4 Activated Partial Thromboplast Time 30 24-35 SEC Sodium Level 136 135-145 MMOL/L Potassium Level 3.6 3.6-5.0 MMOL/L Chloride Level 86 L 98-107 MMOL/L Carbon Dioxide Level 32 21-32 MMOL/L Anion Gap 18 H 5-14 MMOL/L Blood Urea Nitrogen 16 7-18 MG/DL Creatinine 1.14 0.60-1.30 MG/DL Estimat Glomerular Filtration Rate 56 BUN/Creatinine Ratio 14 Glucose Level 118 H 70-105 MG/DL Calcium Level 8.9 8.5-10.1 MG/DL Corrected Calcium 9.0 8.5-10.1 MG/DL Magnesium Level 1.1 *L 1.6-2.4 MG/DL Total Bilirubin 0.4 0.1-1.0 MG/DL Aspartate Amino Transf (AST/SGOT) 24 5-34 U/L Alanine Aminotransferase (ALT/SGPT) 29 0-55 U/L Alkaline Phosphatase 74 40-136 U/L Myoglobin 72.8 10.0-92.0 NG/ML Troponin I < 0.028 <0.028 NG/ML Total Protein 7.0 6.4-8.2 GM/DL Albumin 3.9 3.2-4.5 GM/DL My Orders Orders - CAT BILLINGS MD Cbc With Automated Diff (11/22/21 15:36) Magnesium (11/22/21 15:36) Chest 1 View, Ap/Pa Only (11/22/21 15:36) Ekg Tracing (11/22/21 15:36) Comprehensive Metabolic Panel (11/22/21 15:36) Myoglobin Serum (11/22/21 15:36) Protime With Inr (11/22/21 15:36) Partial Thromboplastin Time (11/22/21 15:36) O2 (11/22/21 15:36) Monitor-Rhythm Ecg Trace Only (11/22/21 15:36) Lipid Panel (11/23/21 06:00) Ed Iv/Invasive Line Start (11/22/21 15:36) Troponin I Jame (11/22/21 15:36) Aspirin Chewable Tablet (Baby Aspirin Ch (11/22/21 15:45) Morphine Injection (Morphine Injection (11/22/21 15:36) Clonazepam Tablet (Klonopin Tablet) (11/22/21 16:15) Magnesium 1 Gm/100 Ml Ivpb (Magnesium Ashby (11/22/21 16:45) Troponin I Jame (11/22/21 18:15) Medications Given in ED Current Medications Medications Dose Ordered Sig/Vladimir Route Start Time Stop Time Status Last Admin Dose Admin Aspirin 324 mg ONCE ONCE PO 11/22/21 15:45 11/22/21 15:46 DC 11/22/21 15:49 324 MG Clonazepam 1 mg ONCE ONCE PO 11/22/21 16:15 11/22/21 16:16 DC 11/22/21 16:21 1 MG Magnesium Sulfate/ Dextrose 100 ml @ 100 mls/hr ONCE ONCE IV 11/22/21 16:45 11/22/21 17:44 DC 11/22/21 17:17 100 MLS/HR Vital Signs/I&O 11/22/21 11/22/21 15:30 15:30 Temp 34.4 Pulse 111 Resp 28 B/P (MAP) 127/98 (108) Pulse Ox 98 98 O2 Delivery Nasal Cannula Nasal Cannula O2 Flow Rate 4.00 4.00 Progress Progress Note : Progress Note Seen and evaluated. IV, labs, EKG and chest x-ray ordered. ASA 324 mg p.o. Morphine 4 mg IV ordered. Monitor patient. 1600: Patient complaining of moderate anxiety. She is asking if she can get an extra dose of her clonazepam or a little bit of Ativan. She was informed of the nationwide shortage of Ativan so we will go ahead and do a dose of clonazepam as it within the dosing range. I did review previous history and echocardiogram that was done recently which showed normal EF. She also had heart catheterization done March of this year which did not show any obstructive disease. Monitor patient. 1830: We did give 1 g of magnesium for her low magnesium. She has chronically low magnesium. She is not currently prescribed that. We will go ahead and initiate pre scription for that. I have repeated troponin. If that is still negative, patient will be discharged back to [facility]. This was discussed with the patient who agrees. 185: Repeat troponin negative. Discharged back to [facility] with return precautions. Patient verbalized understanding of instructions and agreement with plan. Initial ECG Impression Date: Nov 22, 2021 Initial ECG Impression Time: 15:50 Initial ECG Rate: 103 Initial ECG Rhythm: S.Tach Comment Sinus tachycardia with normal axis. No evidence of ST elevation improved similar to previous of 02/26/2021. Interpreted by me. Diagnostic Imaging Diagonstic Imaging: Xray Plain Films/CT/US/NM/MRI: chest Comments [facility], [facility]. [place], [place] NAME: SCOUT [facility] REC#: [id number] PT STATUS: REG ER : 1965 PHYSICIAN: CAT BILLINGS MD ADMIT DATE: 11/22/21/ER Draft Date of Exam:11/22/21 CHEST 1 VIEW, AP/PA ONLY INDICATION: Chest pain. COMPARISON: 03/20/2021. FINDINGS: Single frontal radiographic view of the chest was obtained and demonstrates stable cardiac silhouette and pulmonary vasculature. Lungs show asymmetric consolidative opacity within the lateral left lung base. This may be exaggerated by attenuation from overlying soft tissues. There is no large effusion on the right. No pneumothorax is seen on either side. Osseous structures show no gross acute abnormalities. IMPRESSION: 1. Possible consolidation within the lateral left lung base. Again, this may be exaggerated by overlying soft tissue attenuation. Dictated on workstation # [id number] Dict: 11/22/21 1552 Trans: 11/22/21 1558 [facility] [id number] Interpreted by: ALEAH CARDOSO MD Electronically signed by: Departure Impression Primary Impression: Chest pain Qualified Codes: R07.9 - Chest pain, unspecified Additional Impression: Hypomagnesemia Disposition: 01 HOME, SELF-CARE Condition: Stable Departure-Patient Inst. Decision time for Depature: 18:48 Referrals: [facility] ([place]P/Family) Primary Care Physician Patient Instructions: Chest Pain (DC), Low Magnesium Level (DC) Add. Discharge Instructions: Take medications as directed. Start magnesium as directed. Follow-up with your care provider early next week for recheck and further evaluation. You will need recheck of your magnesium level and your provider can order this. Return for worse pain, fever, vomiting, weakness, breathing problems or other concerns as needed. Scripts Magnesium Oxide (Magnesium Oxide) 400 Mg Magnesium Tablet 400 MG PO BID, #30 TAB 0 Refills Prov: CAT BILLINGS MD 11/22/21 CAT BILLINGS MD Nov 22, 2021 15:41
[2021-11-22] MEDS ORDERED: ASPIRIN 81 MG CHEW (CHILDREN'S ASA) PO ONE (15:45)
--- NOTE | 2021-11-22 15:58 | Diagnostic Imaging Report ---
INDICATION: Chest pain. COMPARISON: 03/20/2021. FINDINGS: Single frontal radiographic view of the chest was obtained and demonstrates stable cardiac silhouette and pulmonary vasculature. Lungs show asymmetric consolidative opacity within the lateral left lung base. This may be exaggerated by attenuation from overlying soft tissues. There is no large effusion on the right. No pneumothorax is seen on either side. Osseous structures show no gross acute abnormalities. IMPRESSION: 1. Possible consolidation within the lateral left lung base. Again, this may be exaggerated by overlying soft tissue attenuation. Dictated by: Dictated on workstation # [id number]
[2021-11-22 16:00] LABS: BASOPHILS % (AUTO) 0 % (0-10); EOSINOPHILS # (AUTO) 0.1 10^3/uL (0.0-0.3); EOSINOPHILS % (AUTO) 0 % (0-10); HEMATOCRIT 32 % (35-52); HEMOGLOBIN 10.3 g/dL (11.5-16.0); LYMPHOCYTES # (AUTO) 1.7 10^3/uL (1.0-4.0); LYMPHOCYTES % (AUTO) 12 % (12-44); MEAN CORPUSCULAR HEMOGLOBIN 27 pg (25-34); MEAN CORPUSCULAR HGB CONC 32 g/dL (32-36); MEAN CORPUSCULAR VOLUME 83 fL (80-99); MONOCYTES # (AUTO) 0.8 10^3/uL (0.0-1.0); MONOCYTES % (AUTO) 6 % (0-12); NEUTROPHILS # (AUTO) 10.9 10^3/uL (1.8-7.8); NEUTROPHILS % (AUTO) 80 % (42-75); PLATELET COUNT 287 10^3/uL (130-400); WHITE BLOOD COUNT 13.8 10^3/uL (4.3-11.0)
[2021-11-22] MEDS ORDERED: clonazePAM 1 MG (KlonoPIN) TAB PO ONE (16:15)
[2021-11-22 16:21] LABS: ALBUMIN 3.9 GM/DL (3.2-4.5); POTASSIUM 3.6 MMOL/L (3.6-5.0)
[2021-11-22 16:22] LABS: CALCIUM 8.9 MG/DL (8.5-10.1)
[2021-11-22 16:25] LABS: BILIRUBIN,TOTAL 0.4 MG/DL (0.1-1.0)
[2021-11-22 16:27] LABS: CREATININE SERUM 1.14 MG/DL (0.60-1.30)
[2021-11-22 16:35] LABS: MAGNESIUM 1.1 MG/DL (1.6-2.4)
[2021-11-22] MEDS ORDERED: MAGNESIUM 1 GM/100 ML IVPB 100 ML IV ONE (16:45)
[2021-11-22 18:41] LABS: INR 0.9 (0.8-1.4); PROTHROMBIN TIME PATIENT 12.1 SEC (12.2-14.7)
[2021-11-22] MEDS ORDERED: MAGN400T50 PO (18:52)
[2021-11-22 19:15] VITALS: BP 116/97
== END 2021-11-22 19:15 | disposition home or self-care (01) ==
LOC: EDUNIT# 15:24 → ER 15:26
DX: E83.42 Hypomagnesemia (principal); R07.9 Chest pain, unspecified; G47.30 Sleep apnea, unspecified; J44.9 Chronic obstructive pulmonary disease, unspecified; E66.01 Morbid (severe) obesity due to excess calories; F17.290 Nicotine dependence, other tobacco product, uncomplicated; Z98.61 Coronary angioplasty status; Z99.81 Dependence on supplemental oxygen; Z99.89 Dependence on other enabling machines and devices; Z68.42 Body mass index [BMI] 45.0-49.9, adult
CPT/HCPCS: 36415; 71045; 80053; 83735; 83874; 84484; 85025; 85610; 85730; 93005; 93041

== ENCOUNTER 2021-11-26 12:24 | Day surgery (SDC) | payer MEDICARE, MEDICAID ==
[~2021-11-26] VITALS: Ht 175.3 cm; Wt 153.3 kg
[~2021-11-26 12:24] MED LIST changes: +MAGN400T50 PO
[2021-11-26] MEDS ORDERED: LACTATED RINGERS 1,000 ML IV STA (12:34)
[2021-11-26 12:50] VITALS: BP 99/88
--- NOTE | 2021-11-26 13:28 | Progress Note-Pre Operative ---
Pre-Operative Progress Note Date of Available H&P: Oct 28, 2021 Date H&P Reviewed: Nov 26, 2021 Time H&P Reviewed: 13:27 History & Physical: H&P Reviewed, Patient Examed, No changes noted Pre-Operative Diagnosis: + JOVANNA Hughes DO Nov 26, 2021 13:28
[2021-11-26] MEDS ORDERED: KETAMINE 50 MG/5 ML SYRINGE ONE (15:14)
[2021-11-26] MEDS ORDERED: PROPOFOL INJECTION 50 ML IV ONE ×2 (15:14→15:57)
--- NOTE | 2021-11-26 16:18 | Discharge Inst-Simple/Standard ---
Discharge Inst-Standard Patient Instructions/Follow Up Plan of Care/Instructions/FU: 2 weeks Mir Activity as Tolerated: Yes Discharge Diet: Regular Diet (high fiber) JOVANNA RAMOS DO Nov 26, 2021 16:18
[2021-11-26 16:21] VITALS: BP 154/91
[2021-11-26 16:30] VITALS: BP 155/80
[2021-11-26 16:55] VITALS: BP 155/80
--- NOTE | 2021-11-26 18:13 | Anesthesia-General Post-Op ---
MAC Patient Condition Mental Status/LOC: Same as Preop Cardiovascular: Satisfactory Nausea/Vomiting: Absent Respiratory: Satisfactory Pain: Controlled Complications: Absent Post Op Complications Complications None Follow Up Care/Instructions Patient Instructions None needed. Anesthesiology Discharge Order Discharge Order Patient is doing well, no complaints, stable vital signs, no apparent adverse anesthesia problems. No complications reported per nursing. HAYLEE MCCRACKEN CRNA Nov 26, 2021 18:13
--- NOTE | 2021-11-26 23:37 | OPERATIVE REPORT ---
DATE OF SERVICE: 11/26/2021 PREOPERATIVE DIAGNOSIS: Positive Cologuard. POSTOPERATIVE DIAGNOSIS: Colon polyps. PROCEDURE: Colonoscopy with hot biopsy polypectomy x2 and snare polypectomy x4. SURGEON: Jovanna Hester DO ANESTHESIA: Per CHIEF SECURITY AND SAFETY OFFICER. ESTIMATED BLOOD LOSS: None. COMPLICATIONS: None. INDICATIONS: The patient is a 56-year-old female with positive Cologuard test. She understands risks and benefits of procedure and wishes to proceed. Consent was signed in the chart. DESCRIPTION OF PROCEDURE: The patient was taken to the endoscopy suite, placed in left lateral recumbent position. Timeout was performed. Digital rectal exam was performed. No palpable polyps, masses or ulcerations. Scope was inserted in the rectum and advanced all the way to cecum with minimal difficulty. No polyps, masses or ulcerations within the cecum and the ascending colon. Prep was adequate with irrigation and suction. In the ascending colon, polyp was present, which snare polypectomy was performed. Scope was then continuously retracted back into the transverse colon where two other polyps were present, which snare polypectomies were performed. Scope was then continuously retracted back. No polyps, masses or ulcerations within the remainder of the transverse and descending colon. In sigmoid colon, another polyp was present, which hot biopsy polypectomy was performed. Scope was then continuously retracted back into the rectum where snare polypectomy was performed. Scope was retroflexed noting no other pathology. Scope was returned to its normal position, slowly withdrawn until completely removed. The patient tolerated the procedure well without any complications. She was taken to recovery room in stable condition. RECOMMENDATIONS: The patient will have a repeat colonoscopy in 3 to 5 years. Any issues before that be seen at that time. Further recommendations pending biopsy results. The patient will follow up in 2 weeks. Job ID: [id number] DocumentID: [id number] Dictated Date: 11/26/2021 16:20:29 Company Controller Date: 11/26/2021 23:37:20 Dictated By: JOVANNA HESTER DO
== END 2021-11-26 17:00 ==
LOC: ENDO 12:24
PROVIDERS: ATTEND Surgery
DX: D12.2 Benign neoplasm of ascending colon (principal); D12.3 Benign neoplasm of transverse colon; D12.5 Benign neoplasm of sigmoid colon; K62.1 Rectal polyp; E66.9 Obesity, unspecified; J44.9 Chronic obstructive pulmonary disease, unspecified; E11.40 Type 2 diabetes mellitus with diabetic neuropathy, unspecified; G47.33 Obstructive sleep apnea (adult) (pediatric); F17.290 Nicotine dependence, other tobacco product, uncomplicated; Z99.81 Dependence on supplemental oxygen; Z79.52 Long term (current) use of systemic steroids; Z79.82 Long term (current) use of aspirin; Z79.4 Long term (current) use of insulin; Z79.899 Other long term (current) drug therapy; Z79.84 Long term (current) use of oral hypoglycemic drugs; Z91.19 Patient's noncompliance with other medical treatment and regimen; Z68.42 Body mass index [BMI] 45.0-49.9, adult

== ENCOUNTER 2021-11-30 11:37 | Emergency (ER) | payer MEDICARE, MEDICAID ==
[~2021-11-30] VITALS: Ht 177.8 cm; Wt 145.2 kg
[2021-11-30 12:25] LABS: BASOPHILS % (AUTO) 0 % (0-10); EOSINOPHILS # (AUTO) 0.2 10^3/uL (0.0-0.3); EOSINOPHILS % (AUTO) 1 % (0-10); HEMATOCRIT 31 % (35-52); HEMOGLOBIN 9.8 g/dL (11.5-16.0); LYMPHOCYTES # (AUTO) 1.6 10^3/uL (1.0-4.0); LYMPHOCYTES % (AUTO) 11 % (12-44); MEAN CORPUSCULAR HEMOGLOBIN 27 pg (25-34); MEAN CORPUSCULAR HGB CONC 31 g/dL (32-36); MEAN CORPUSCULAR VOLUME 86 fL (80-99); MEAN PLATELET VOLUME 9.6 fL (9.0-12.2); MONOCYTES % (AUTO) 7 % (0-12); NEUTROPHILS # (AUTO) 11.5 10^3/uL (1.8-7.8); NEUTROPHILS % (AUTO) 80 % (42-75); PLATELET COUNT 275 10^3/uL (130-400); WHITE BLOOD COUNT 14.4 10^3/uL (4.3-11.0)
[2021-11-30 12:37] LABS: ALBUMIN 3.8 GM/DL (3.2-4.5); POTASSIUM 3.5 MMOL/L (3.6-5.0)
[2021-11-30 12:38] LABS: CALCIUM 9.8 MG/DL (8.5-10.1)
[2021-11-30 12:39] LABS: INR 0.9 (0.8-1.4); PROTHROMBIN TIME PATIENT 12.5 SEC (12.2-14.7)
[2021-11-30 12:40] LABS: TOTAL PROTEIN 6.7 GM/DL (6.4-8.2)
[2021-11-30 12:41] LABS: BILIRUBIN,TOTAL 0.4 MG/DL (0.1-1.0)
[2021-11-30 12:43] LABS: CREATININE SERUM 1.26 MG/DL (0.60-1.30)
[2021-11-30 12:48] LABS: BAND NEUTROPHILS 0 %; BASOPHILS % (MANUAL) 0 %; EOSINOPHILS % (MANUAL) 1 %; LYMPHOCYTES % (MANUAL) 17 %; MONOCYTES % (MANUAL) 4 %; NEUTROPHILS % (MANUAL) 78 %; POLYCHROMASIA MODERATE
[2021-11-30 12:49] LABS: ANISOCYTOSIS MODERATE
--- NOTE | 2021-11-30 14:00 | ED GI ---
General Chief Complaint: Abdominal/GI Problems Stated Complaint: BLOODY STOOLS Nursing Triage Note: pt ambulatory to room with use of walker and personal O2. pt wears 4L NC at all times for hx of COPD. pt states she had a colonoscopy with removal of polyps on thursday. states she began having bright red bloody stools this am at 0400. states she has had 4 of these BMs today. pt states she also has mild abdomen cramping, but denies N/V/D. Source of Information: Patient Exam Limitations: No Limitations (WILLIAMS RICO APRN) History of Present Illness Date Seen by Provider: Nov 30, 2021 Time Seen by Provider: 12:00 Initial Comments Patient is a 56 yo F who presents to the ED from her skilled nursing for three episodes of bloody diarrhea since waking this AM. Patient states she has not had any significant abdominal pain. She has been tolerating oral intake without issue. No rectal pain. No vomiting or nausea. The blood was bright red per patient. Pt states she has hemorrhoids but has never had any issue like this. She is on home O2 via NC at 4L which is unchanged. She did have a colonoscopy recently that revealed some polyps that were removed with a snare. No other abnormalities were noted per operative report. Patient denies any chest pain, shortness of air, increased fatigue, increased WOB. Timing/Duration: 4-6 Hours Radiation: No Radiation Activities at Onset: None (WILLIAMS RICO APRN) Allergies and Home Medications Allergies Coded Allergies: buspirone (Verified Allergy, Mild, 05/02/17) Made"legs Shaky" amitriptyline (Verified Allergy, Unknown, 05/02/17) " MAKES ME DO WEIRD THINGS LIKE WALK IN MY SLEEP AND HAVE HALLUCINATIONS." amlodipine (Verified Allergy, Unknown, 03/20/21) Patient Home Medication List Home Medication List Reviewed: Yes (WILLIAMS RICO BEAD SUPERVISOR) Acetaminophen (Tylenol) 325 Mg Tablet, 650 MG PO Q4H PRN for PAIN-MILD (1-4), (Reported) Entered as Reported by: SEAN ARTEAGA on 03/20/21 1008 Albuterol Sulfate (Proair Hfa) 1 Puff Puff, 2 PUFF IH Q4H PRN for SHORTNESS OF BREATH, (Reported) Entered as Reported by: SEAN ARTEAGA on 03/20/21 1008 Aspirin (Aspirin EC) 81 Mg Tablet.dr, 81 MG PO DAILY, (Reported) Entered as Reported by: HARSH PARRISH on 11/19/17 1603 Benzonatate (Benzonatate) 100 Mg Capsule, 100 MG PO QID, (Reported) Entered as Reported by: DANIELLE RICHARD on 07/31/20 1616 Bumetanide (Bumetanide) 2 Mg Tablet, 2 MG PO DAILY, (Reported) Entered as Reported by: SEAN ARTEAGA on 03/20/21 1008 Carvedilol (Carvedilol) 3.125 Mg Tablet, 3.125 MG PO BID, (Reported) Entered as Reported by: SEAN ARTEAGA on 03/20/21 1008 Cholecalciferol (Vitamin D3) (Vitamin D3) 50 Mcg (2000 Unit) Tab.chew, 50 MCG PO DAILY, (Reported) Entered as Reported by: CARLOS BANSAL on 11/14/21 1048 Clonazepam (Clonazepam) 1 Mg Tablet, 1 MG PO BID PRN, (Reported) Entered as Reported by: CARLOS BANSAL on 11/14/21 1048 Dulaglutide (Trulicity) 0.75 Mg/0.5 Ml Pen.injctr, 0.75 MG SQ WEEK, (Reported) Entered as Reported by: CARLOS BANSAL on 11/14/21 104 Duloxetine HCl (Duloxetine HCl) 30 Mg Capsule.dr, 30 MG PO DAILY, (Reported) Entered as Reported by: CARLOS BANSAL on 11/14/21 1048 Fluticasone/Umeclidin/Vilanter (Trelegy Ellipta 100-62.5-25) 100-62.5 Blst.w.dev, 1 EACH IH DAILY, (Reported) Entered as Reported by: CARLOS BANSAL on 11/14/21 1048 Glimepiride (Glimepiride) 1 Mg Tablet, 1 MG PO DAILY PRN for WHEN TAKING PREDNISONE, (Reported) Entered as Reported by: HARSH PARRISH on 04/29/17 1346 Insulin Detemir (Levemir Flextouch) 100 Unit/Ml (3 Ml) Insuln.pen, 25 UNIT SQ BID, (Reported) Entered as Reported by: CARLOS BANSAL on 11/14/21 1048 Insulin Regular, Human (NovoLIN R Flexpen) 100 Unit/Ml (3 Ml) Insuln.pen, 15 UNIT SQ TIDWM, (Reported) Entered as Reported by: CARLOS BANSAL on 11/14/21 1048 Ipratropium/Albuterol Sulfate (Iprat-Albut 0.5-3(2.5) mg/3 ml) 0.5 Mg-3 Mg (2.5 Mg Base)/3 Ml Ampul.neb, 3 ML IH Q6H PRN for SHORTNESS OF BREATH, (Reported) Entered as Reported by: CARLOS BANSAL on 11/14/21 1048 Magnesium Oxide (Magnesium Oxide) 400 Mg Magnesium Tablet, 400 MG PO BID Prescribed by: CAT BILLINGS on 11/22/21 185 Menthol (Biofreeze) 118 Ml Gel..ml., 1 APPLIC TP UD PRN for PAIN-BREAKTHROUGH, (Reported) Entered as Reported by: DANIELLE RICHARD on 12/18/20 1129 Metformin HCl (Metformin HCl) 500 Mg Tablet, 1,000 MG PO BID, (Reported) Entered as Reported by: CARLOS BANSAL on 11/14/21 1048 Methenamine Hippurate (Methenamine Hippurate) 1 Gram Tablet, 1 GM PO BID, (Reported) Entered as Reported by: CARLOS BANSAL on 11/14/21 1048 Multivitamin/Iron/Folic Acid (Centrum Women Tablet) 1 Each Tablet, 1 EACH PO DAILY, (Reported) Entered as Reported by: DANIELLE RICHARD on 12/18/20 1129 Nystatin (Nystatin) 100,000 Unit/Ml Oral.susp, 5 ML PO HS, (Reported) Entered as Reported by: CARLOS BANSAL on 11/14/21 1048 Olanzapine (Olanzapine) 10 Mg Tablet, 10 MG PO HS, (Reported) Entered as Reported by: DANIELLE RICHARD on 07/31/20 1616 Oxybutynin Chloride (Oxybutynin Chloride) 5 Mg Tablet, 5 MG PO BID, (Reported) Entered as Reported by: SEAN ARTEAGA on 03/20/21 1008 Pantoprazole Sodium (Pantoprazole Sodium) 40 Mg Tablet.dr, 40 MG PO DAILY, (Reported) Entered as Reported by: SEAN ARTEAGA on 03/20/21 1008 Potassium Chloride (K-Tab ER) 20 Meq Tablet.er, 20 MEQ PO DAILY, (Reported) Entered as Reported by: CARLOS BANSAL on 11/14/21 1048 Prednisone (Prednisone) 10 Mg Tab, 10 MG PO DAILY, (Reported) Entered as Reported by: DANIELLE RICHARD on 07/31/20 1616 Promethazine HCl (Promethazine HCl) 12.5 Mg Tablet, 12.5 MG PO Q6H, (Reported) Entered as Reported by: CARLOS BANSAL on 11/14/21 1048 Rizatriptan Benzoate (Rizatriptan) 10 Mg Tablet, 10 MG PO DAILY, (Reported) Entered as Reported by: CARLOS BANSAL on 11/14/21 1048 Rosuvastatin Calcium (Rosuvastatin Calcium) 20 Mg Tablet, 20 MG PO HS, (Reported) Entered as Reported by: SEAN ARTEAGA on 03/20/21 1008 Review of Systems Review of Systems Constitutional: no symptoms reported EENTM: No Symptoms Reported Respiratory: No Symptoms Reported Cardiovascular: No Symptoms Reported Gastrointestinal: Blood Streaked Stools, Rectal Bleeding Genitourinary: No Symptoms Reported Musculoskeletal: no symptoms reported Skin: no symptoms reported Psychiatric/Neurological: No Symptoms Reported Endocrine: No Symptoms Reported Hematologic/Lymphatic: No Symptoms Reported (WILLIAMS RICO APRN) Past Mirxxrl-Ervmej-Zuyvpv Hx Patient Social History Tobacco Use?: No Smoking Status: Former Smoker Use of E-Cig and/or Vaping dev: Yes E-Cig or Vaping type used: Nicotine Use of E-Cig and/or Vaping Greg: Current Everyday User Substance use?: No Alcohol Use?: No (WILLIAMS RICO APRN) Immunizations Up To Date Tetanus Booster (TDap): Unknown Influenza Vaccine Up-to-Date: Yes; Up-to-Date First/Initial COVID19 Vaccinat: 08/03/20 Second COVID19 Vaccination Dustin: 08/27 Third COVID19 Vaccination Date: 08/03/20 (WILLIAMS RICO APRN) Seasonal Allergies Seasonal Allergies: No (WILLIAMS RICO APRN) Past Medical History Surgery/Hospitalization HX: IDDM,CHF,COPD,ANXIETY,HIGH LIPIDS Surgeries: Yes (EGD/COLONOSCOPY; CARDIAC CATH 09/18/17--NO INTERVENTION) Cardiac Respiratory: Yes (O2 AT 4L/NC) Pneumonia, Chronic Bronchitis, Sleep Apnea, COPD Currently Using CPAP: No Currently Using BIPAP: Yes Cardiac: Yes Cardiomyopathy, Chronic Edema/Swelling, Coronary Artery Disease, High Cholesterol, Hypertension Neurological: Yes Headaches /Migraines 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 Disorders: No 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 Disorders: Denies BOY'S ADVISER History: Menopausal Sexually Transmitted Disease: No HIV/AIDS: No Genitourinary: Yes Bladder Infection Gastrointestinal: Yes (GASTRITIS AND ESOPHAGEAL CANDIDIASIS 04/2017) Gastroesophageal Reflux, Gastrointestinal Bleed, Chronic Constipation, Chronic Diarrhea, Esophagitis, Ulcer Musculoskeletal: Yes (chronic shoulder and neck pain--OPIATE DEPENDENT;MINIMALLY AMBULATORY) Degenerate Disk Disease, Arthritis, Chronic Back Pain Endocrine: Yes (NIDDM; MORBID OBESITY) Diabetes, Non-Insulin dep HEENT: No Cancer: No Psychosocial: Yes (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; POLYSUBSTANCE ABUSE) Sleep Difficulties, Anxiety, Suicide Attempts, Bipolar, Depression Integumentary: No Blood Disorders: Yes (ANEMIA) Adverse Reaction/Blood Tranf: No (WILLIAMS RICO APRN) Family Medical History Cancer 03 MOTHER, Onset:66 (LUNG ) 09 BROTHER (LUNG ) Congestive heart failure 03 FATHER Heart Disease, Cancer SOCIAL HISTORY : -SMOKING--3-4 PPD -ETOH--DENIES USE -DRUG USE--+ IV METH AND ALSO SMOKES IN ON A REGULAR BASIS; 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 0.9oz. 89.566226gq; 45.00 BMI Method:Stated General Appearance: WD/WN, no apparent distress HEENT: PERRL/EOMI, normal ENT inspection, TMs normal, pharynx normal Neck: non-tender, full range of motion, supple, normal inspection Respiratory: chest non-tender, lungs clear, normal breath sounds, no respiratory distress, no accessory muscle use Cardiovascular: regular rate, rhythm, no edema, no gallop, no JVD, no murmur Gastrointestinal: normal bowel sounds, non tender, soft, no organomegaly, no pulsatile mass Rectal: normal rectal tone, heme positive stool, hemorrhoids Extremities: normal range of motion, non-tender, normal inspection, no pedal edema, no calf tenderness, normal capillary refill Pelvic: normal external exam, normal adnexa, no cerv. motion tender, no masses Neurologic/Psychiatric: stone banker II-XII nml as tested, no motor/sensory deficits, alert, normal mood/affect, oriented x 3 Skin: normal color, warm/dry (RICOWILLIAMS BEAD SUPERVISOR) Progress/Results/Core Measures Results/Orders Lab Results Laboratory Tests Test 11/30/21 12:15 Range/Units White Blood Count 14.4 H 4.3-11.0 10^3/uL Red Blood Count 3.64 L 3.80-5.11 10^6/uL Hemoglobin 9.8 L 11.5-16.0 g/dL Hematocrit 31 L 35-52 % Mean Corpuscular Volume 86 80-99 fL Mean Corpuscular Hemoglobin 27 25-34 pg Mean Corpuscular Hemoglobin Concent 31 L 32-36 g/dL Red Cell Distribution Width 15.0 H 10.0-14.5 % Platelet Count 275 130-400 10^3/uL Mean Platelet Volume 9.6 9.0-12.2 fL Immature Granulocyte % (Auto) 1 % Neutrophils (%) (Auto) 80 H 42-75 % Lymphocytes (%) (Auto) 11 L 12-44 % Monocytes (%) (Auto) 7 0-12 % Eosinophils (%) (Auto) 1 0-10 % Basophils (%) (Auto) 0 0-10 % Neutrophils # (Auto) 11.5 H 1.8-7.8 10^3/uL Lymphocytes # (Auto) 1.6 1.0-4.0 10^3/uL Monocytes # (Auto) 1.0 0.0-1.0 10^3/uL Eosinophils # (Auto) 0.2 0.0-0.3 10^3/uL Basophils # (Auto) 0.0 0.0-0.1 10^3/uL Immature Granulocyte # (Auto) 0.1 0.0-0.1 10^3/uL Neutrophils % (Manual) 78 % Lymphocytes % (Manual) 17 % Monocytes % (Manual) 4 % Eosinophils % (Manual) 1 % Basophils % (Manual) 0 % Band Neutrophils 0 % Polychromasia MODERATE Anisocytosis MODERATE Prothrombin Time 12.5 12.2-14.7 SEC INR Comment 0.9 0.8-1.4 Activated Partial Thromboplast Time 29 24-35 SEC Sodium Level 141 135-145 MMOL/L Potassium Level 3.5 L 3.6-5.0 MMOL/L Chloride Level 92 L 98-107 MMOL/L Carbon Dioxide Level 32 21-32 MMOL/L Anion Gap 17 H 5-14 MMOL/L Blood Urea Nitrogen 17 7-18 MG/DL Creatinine 1.26 0.60-1.30 MG/DL Estimat Glomerular Filtration Rate 50 BUN/Creatinine Ratio 13 Glucose Level 161 H 70-105 MG/DL Calcium Level 9.8 8.5-10.1 MG/DL Corrected Calcium 10.0 8.5-10.1 MG/DL Total Bilirubin 0.4 0.1-1.0 MG/DL Aspartate Amino Transf (AST/SGOT) 24 5-34 U/L Alanine Aminotransferase (ALT/SGPT) 34 0-55 U/L Alkaline Phosphatase 74 40-136 U/L Total Protein 6.7 6.4-8.2 GM/DL Albumin 3.8 3.2-4.5 GM/DL (TYLOR DURAN MD) My Orders Orders - TYLOR DURAN MD Cbc With Automated Diff (11/30/21 11:59) Comprehensive Metabolic Panel (11/30/21 11:59) Protime With Inr (11/30/21 11:59) Partial Thromboplastin Time (11/30/21 11:59) Ed Iv/Invasive Line Start (11/30/21 11:59) Fecal Occult Bedside (11/30/21 11:59) Manual Differential (11/30/21 12:15) (TYLOR DURAN MD) Vital Signs/I&O 11/30/21 11/30/21 11:45 14:17 Temp 36.9 36.9 Pulse 114 101 Resp 24 24 B/P (MAP) 126/90 (102) 133/83 Pulse Ox 99 99 O2 Delivery Nasal Cannula (TYLOR DURAN MD) Blood Pressure Mean: 102 Fecal Occult: Positive (WILLIAMS RICO APRN) Progress Progress Note : Progress Note Patient is nontoxic and well hydrated on exam. Vital signs are reassuring. Patient is mildly tachycardic but states she is very anxious. Laboratory evaluation notable for mild anemia but it is not markedly lower than her recent baseline per review of EMR. Rectal exam notable for internal and external he morrhoids. No active bleeding noted. Normal rectal tone appreciated. Fecal occult blood positive. There is low concern at this time of any significant lower GI bleeding that would require further intervention of hospitalization. Will d/c home with recs for supportive care and follow-up with PCP for persistent symptoms. Return precautions for urgent symptomology discussed. Patient verbalized understanding. (WILLIAMS RICO APRN) Departure Impression Primary Impression: Hematochezia Additional Impression: Hemorrhoids Qualified Codes: K64.9 - Unspecified hemorrhoids Disposition: HOME, SELF-CARE Condition: Stable Departure-Patient Inst. Decision time for Depature: 13:50 (WILLIAMS RICO APRN) Referrals: [facility] [place] ([place]/Family) Primary Care Physician Patient Instructions: Bloody Stools, Adult (DC) ATTENDING PHYSICIAN NOTE: I was physically present as attending physician in the emergency department during the care of this patient, but I was not directly involved in the decision making or delivery of care for this patient. (TYLOR DURAN MD) WILLIAMS RICO APRN Nov 30, 2021 14:00 TYLOR DURAN MD Nov 30, 2021 20:07
[2021-11-30 14:17] VITALS: BP 133/83
== END 2021-11-30 14:18 | disposition home or self-care (01) ==
LOC: EDUNIT# 11:37 → ER 11:39
DX: K64.4 Residual hemorrhoidal skin tags (principal); K64.8 Other hemorrhoids; D64.9 Anemia, unspecified; G47.30 Sleep apnea, unspecified; E66.01 Morbid (severe) obesity due to excess calories; F17.290 Nicotine dependence, other tobacco product, uncomplicated; Z99.89 Dependence on other enabling machines and devices; Z68.42 Body mass index [BMI] 45.0-49.9, adult
CPT/HCPCS: 36415; 80053; 82274; 85007; 85027; 85610; 85730

== ENCOUNTER 2022-01-26 13:02 | Emergency (ER) | payer MEDICARE, MEDICAID ==
[~2022-01-26] VITALS: Ht 175 cm; Wt 147.8 kg
[~2022-01-26 13:02] MED LIST changes: +ALBU8.5H6 IH
[2022-01-26] MEDS ORDERED: ASPIRIN 81 MG CHEW (CHILDREN'S ASA) PO ONE (13:30)
[2022-01-26] MEDS ORDERED: RT-ALBUTEROL/IPRATROPIUM 3 ML (DUONEB) VIAL INH ONE (13:30)
[2022-01-26 13:44] LABS: BASOPHILS % (AUTO) 0 % (0-10); EOSINOPHILS # (AUTO) 0.2 10^3/uL (0.0-0.3); EOSINOPHILS % (AUTO) 2 % (0-10); HEMATOCRIT 33 % (35-52); HEMOGLOBIN 9.7 g/dL (11.5-16.0); LYMPHOCYTES # (AUTO) 1.4 10^3/uL (1.0-4.0); LYMPHOCYTES % (AUTO) 13 % (12-44); MEAN CORPUSCULAR HEMOGLOBIN 25 pg (25-34); MEAN CORPUSCULAR HGB CONC 29 g/dL (32-36); MEAN CORPUSCULAR VOLUME 87 fL (80-99); MEAN PLATELET VOLUME 10.2 fL (9.0-12.2); MONOCYTES # (AUTO) 0.7 10^3/uL (0.0-1.0); MONOCYTES % (AUTO) 7 % (0-12); NEUTROPHILS # (AUTO) 8.5 10^3/uL (1.8-7.8); NEUTROPHILS % (AUTO) 78 % (42-75); PLATELET COUNT 320 10^3/uL (130-400); WHITE BLOOD COUNT 10.9 10^3/uL (4.3-11.0)
[2022-01-26] MEDS ORDERED: diphenhydrAMINE 50 MG/ML INJ (BENADRYL) IVP ONE (13:45)
[2022-01-26] MEDS ORDERED: PROCHLORPERAZINE 10 MG/2ML INJ (COMPAZINE) IV ONE (13:45)
[2022-01-26] MEDS ORDERED: KETOROLAC 30 MG/ML VIAL IVP ONE (13:45)
--- NOTE | 2022-01-26 13:47 | ED General ---
General Chief Complaint: Head/Cervical Problems Stated Complaint: MIGRAINE, COPD, COUGH, CHF Nursing Triage Note: PT PRESENTS TO ED VIA [facility] WITH COMPLAINTS OF MIGRAINE, INCREASED SOA, AND INTERMITTENT CP SINCE 01/16. PT STATES HER MAIN CONCERN IS HER TANG. PT REPORTS SEENING HER PRIMARY DR ON A NEW MEDICATION FOR HER MIGRAINES. PT STATES IT WORKED FOR A DAY THEN HER MIGRAINE CAME BACK. History of Present Illness Date Seen by Provider: Jan 26, 2022 Time Seen by Provider: 13:15 Initial Comments Patient is a 56-year-old female with a complex past medical history including CHF, COPD, and migraines who presents to the emergency department for evaluation of a headache that has been present for approximately 10 days. She is also complaining of some increased shortness of air and some intermittent mild chest pain. She states her PCP put her on Fioricet for the headaches and this worked for a short period of time before the headaches return. She states she is also on Topamax for headache prevention. She states the headache began in the back of her head before moving to the front of her head. She states her normal headaches are "all over the place". Denies any photophobia, vision loss, focal numbness/weakness. She has not recently had any breathing treatments per review of her MAR from her [facility] facility. She states she has not asked for a breathing treatment recently. She states the chest pain is mostly in the middle of her chest and is something she has intermittently. She states it is not nearly as bad as it is sometimes. Her primary concern is the headache. Allergies and Home Medications Allergies Coded Allergies: buspirone (Verified Allergy, Mild, 05/02/17) Made"legs Shaky" amitriptyline (Verified Allergy, Unknown, 05/02/17) " MAKES ME DO WEIRD THINGS LIKE WALK IN MY SLEEP AND HAVE HALLUCINATIONS." amlodipine (Verified Allergy, Unknown, 03/20/21) Patient Home Medication List Home Medication List Reviewed: Yes Acetaminophen (Tylenol) 325 Mg Tablet, 650 MG PO Q4H PRN for PAIN-MILD (1-4), (Reported) Entered as Reported by: SEAN ARTEAGA on 03/20/21 1008 Albuterol Sulfate (Ventolin Hfa) 1 Puff Puff, 2 PUFF IH Q4H PRN for SHORTNESS OF BREATH, (Reported) Entered as Reported by: SEAN ARTEAGA on 03/20/21 1008 Aspirin (Aspirin EC) 81 Mg Tablet.dr, 81 MG PO DAILY, (Reported) Entered as Reported by: HARSH PARRISH on 11/19/17 1603 Benzonatate (Benzonatate) 100 Mg Capsule, 100 MG PO QID, (Reported) Entered as Reported by: DANIELLE RICHARD on 07/31/20 1616 Bumetanide (Bumetanide) 2 Mg Tablet, 2 MG PO DAILY, (Reported) Entered as Reported by: SEAN ARTEAGA on 03/20/21 1008 Carvedilol (Carvedilol) 3.125 Mg Tablet, 3.125 MG PO BID, (Reported) Entered as Reported by: SEAN ARTEAGA on 03/20/21 1008 Cholecalciferol (Vitamin D3) (Vitamin D3) 50 Mcg (2000 Unit) Tab.chew, 50 MCG PO DAILY, (Reported) Entered as Reported by: CARLOS BANSAL on 11/14/21 1048 Clonazepam (Clonazepam) 1 Mg Tablet, 1 MG PO BID PRN, (Reported) Entered as Reported by: CARLOS BANSAL on 11/14/21 1048 Dulaglutide (Trulicity) 0.75 Mg/0.5 Ml Pen.injctr, 0.75 MG SQ WEEK, (Reported) Entered as Reported by: CARLOS BANSAL on 11/14/21 104 Duloxetine HCl (Duloxetine HCl) 30 Mg Capsule.dr, 30 MG PO DAILY, (Reported) Entered as Reported by: CARLOS BANSAL on 11/14/21 1048 Fluticasone/Umeclidin/Vilanter (Trelegy Ellipta 100-62.5-25) 100-62.5 Blst.w.dev, 1 EACH IH DAILY, (Reported) Entered as Reported by: CARLOS BANSAL on 11/14/21 1048 Glimepiride (Glimepiride) 1 Mg Tablet, 1 MG PO DAILY PRN for WHEN TAKING PREDNISONE, (Reported) Entered as Reported by: HARSH PARRISH on 04/29/17 1346 Insulin Detemir (Levemir Flextouch) 100 Unit/Ml (3 Ml) Insuln.pen, 25 UNIT SQ BID, (Reported) Entered as Reported by: CARLOS BANSAL on 11/14/21 1048 Insulin Regular, Human (NovoLIN R Flexpen) 100 Unit/Ml (3 Ml) Insuln.pen, 15 UNIT SQ TIDWM, (Reported) Entered as Reported by: CARLOS BANSAL on 11/14/21 1048 Ipratropium/Albuterol Sulfate (Iprat-Albut 0.5-3(2.5) mg/3 ml) 0.5 Mg-3 Mg (2.5 Mg Base)/3 Ml Ampul.neb, 3 ML IH Q6H PRN for SHORTNESS OF BREATH, (Reported) Entered as Reported by: CARLOS BANSAL on 11/14/21 1048 Magnesium Oxide (Magnesium Oxide) 400 Mg Magnesium Tablet, 400 MG PO BID Prescribed by: CAT BILLINGS on 11/22/21 185 Menthol (Biofreeze) 118 Ml Gel..ml., 1 APPLIC TP UD PRN for PAIN-BREAKTHROUGH, (Reported) Entered as Reported by: DANIELLE RICHARD on 12/18/20 1129 Metformin HCl (Metformin HCl) 500 Mg Tablet, 1,000 MG PO BID, (Reported) Entered as Reported by: CARLOS BANSAL on 11/14/21 104 Methenamine Hippurate (Methenamine Hippurate) 1 Gram Tablet, 1 GM PO BID, (Reported) Entered as Reported by: CARLOS BANSAL on 11/14/21 104 Multivitamin/Iron/Folic Acid (Centrum Women Tablet) 1 Each Tablet, 1 EACH PO DAILY, (Reported) Entered as Reported by: DANIELLE RICHARD on 12/18/20 1129 Nystatin (Nystatin) 100,000 Unit/Ml Oral.susp, 5 ML PO HS, (Reported) Entered as Reported by: CARLOS BANSAL on 11/14/21 1048 Olanzapine (Olanzapine) 10 Mg Tablet, 10 MG PO HS, (Reported) Entered as Reported by: DANIELLE RICHARD on 07/31/20 1616 Oxybutynin Chloride (Oxybutynin Chloride) 5 Mg Tablet, 5 MG PO BID, (Reported) Entered as Reported by: SEAN ARTEAGA on 03/20/21 1008 Pantoprazole Sodium (Pantoprazole Sodium) 40 Mg Tablet.dr, 40 MG PO DAILY, (Reported) Entered as Reported by: SEAN ARTEAGA on 03/20/21 1008 Potassium Chloride (K-Tab ER) 20 Meq Tablet.er, 20 MEQ PO DAILY, (Reported) Entered as Reported by: CARLOS BANSAL on 11/14/21 1048 Prednisone (Prednisone) 10 Mg Tab, 10 MG PO DAILY, (Reported) Entered as Reported by: DANIELLE RICHARD on 07/31/20 1616 Promethazine HCl (Promethazine HCl) 12.5 Mg Tablet, 12.5 MG PO Q6H, (Reported) Entered as Reported by: CARLOS BANSAL on 11/14/21 1048 Rizatriptan Benzoate (Rizatriptan) 10 Mg Tablet, 10 MG PO DAILY, (Reported) Entered as Reported by: CARLOS BANSAL on 11/14/21 1048 Rosuvastatin Calcium (Rosuvastatin Calcium) 20 Mg Tablet, 20 MG PO HS, (Reported) Entered as Reported by: SEAN ARTEAGA on 03/20/21 1008 Review of Systems Review of Systems Constitutional: no symptoms reported EENTM: no symptoms reported Respiratory: see HPI, short of breath Cardiovascular: see HPI, chest pain Gastrointestinal: no symptoms reported Genitourinary: no symptoms reported Musculoskeletal: no symptoms reported, see HPI Psychiatric/Neurological: See HPI, Headache Past Affawto-Psfhmy-Mrerle Hx Patient Social History Tobacco Use?: No Use of E-Cig and/or Vaping dev: Yes E-Cig or Vaping type used: Nicotine Use of E-Cig and/or Vaping Greg: Current Everyday User Substance use?: No Alcohol Use?: No Pt feels they are or have been: No Immunizations Up To Date Tetanus Booster (TDap): Unknown First/Initial COVID19 Vaccinat: 08/03/20 Second COVID19 Vaccination Dustin: 08/27 Third COVID19 Vaccination Date: 08/03/20 Seasonal Allergies Seasonal Allergies: No Past Medical History Surgery/Hospitalization HX: IDDM,CHF,COPD,ANXIETY,HIGH LIPIDS, acute kidney failure, uti, Surgeries: Yes (EGD/COLONOSCOPY; CARDIAC CATH 09/18/17--NO INTERVENTION) Cardiac Respiratory: Yes (O2 AT 4L/NC) Pneumonia, Chronic Bronchitis, Sleep Apnea, COPD Currently Using CPAP: No Currently Using BIPAP: Yes Cardiac: Yes Cardiomyopathy, Chronic Edema/Swelling, Coronary Artery Disease, High Cholesterol, Hypertension Neurological: Yes Headaches /Migraines 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 Disorders: No 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 Disorders: Denies 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 Sexually Transmitted Disease: No HIV/AIDS: No Genitourinary: Yes Bladder Infection Gastrointestinal: Yes (GASTRITIS AND ESOPHAGEAL CANDIDIASIS 04/2017) Gastroesophageal Reflux, Gastrointestinal Bleed, Chronic Constipation, Chronic Diarrhea, Esophagitis, Ulcer Musculoskeletal: Yes (chronic shoulder and neck pain--OPIATE DEPENDENT;MINIMALLY AMBULATORY) Degenerate Disk Disease, Arthritis, Chronic Back Pain Endocrine: Yes (NIDDM; MORBID OBESITY) Diabetes, Non-Insulin dep HEENT: No Cancer: No Psychosocial: Yes (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; POLYSUBSTANCE ABUSE) Sleep Difficulties, Anxiety, Suicide Attempts, Bipolar, Depression Integumentary: No Blood Disorders: Yes (ANEMIA) Adverse Reaction/Blood Tranf: No Family Medical History Cancer 03 MOTHER, Onset:66 (LUNG ) 09 BROTHER (LUNG ) Congestive heart failure 03 FATHER Heart Disease, Cancer SOCIAL HISTORY : -SMOKING--3-4 PPD -ETOH--DENIES USE -DRUG USE--+ IV METH AND ALSO SMOKES IN ON A REGULAR BASIS; 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 0.9oz. 89.126745bc; 48.00 BMI Method:Stated General Appearance: No Apparent Distress, WD/WN HEENT: PERRL/EOMI, TMs Normal, Normal ENT Inspection, Pharynx Normal Respiratory: Chest Non Tender, Lungs Clear, Normal Breath Sounds, No Respiratory Distress Cardiovascular: Regular Rate, Rhythm Gastrointestinal: Non Tender, Soft Neurologic/Psychiatric: Alert, Oriented x3, No Motor/Sensory Deficits, Normal Mood/Affect Skin: Normal Color, Warm/Dry Comments 1+ pitting edema in bilateral lower legs Progress/Results/Core Measures Suspected Sepsis SIRS Temperature: Pulse: 109 Respiratory Rate: 26 Laboratory Tests 01/26/22 13:30: White Blood Count 10.9 Blood Pressure 179 /123 Mean: 141 Laboratory Tests 01/26/22 13:30: Creatinine 1.38H, INR Comment 0.9, Platelet Count 320, Total Bilirubin 0.2 Results/Orders Lab Results Laboratory Tests Test 01/26/22 13:30 Range/Units White Blood Count 10.9 4.3-11.0 10^3/uL Red Blood Count 3.84 3.80-5.11 10^6/uL Hemoglobin 9.7 L 11.5-16.0 g/dL Hematocrit 33 L 35-52 % Mean Corpuscular Volume 87 80-99 fL Mean Corpuscular Hemoglobin 25 25-34 pg Mean Corpuscular Hemoglobin Concent 29 L 32-36 g/dL Red Cell Distribution Width 15.2 H 10.0-14.5 % Platelet Count 320 130-400 10^3/uL Mean Platelet Volume 10.2 9.0-12.2 fL Immature Granulocyte % (Auto) 1 % Neutrophils (%) (Auto) 78 H 42-75 % Lymphocytes (%) (Auto) 13 12-44 % Monocytes (%) (Auto) 7 0-12 % Eosinophils (%) (Auto) 2 0-10 % Basophils (%) (Auto) 0 0-10 % Neutrophils # (Auto) 8.5 H 1.8-7.8 10^3/uL Lymphocytes # (Auto) 1.4 1.0-4.0 10^3/uL Monocytes # (Auto) 0.7 0.0-1.0 10^3/uL Eosinophils # (Auto) 0.2 0.0-0.3 10^3/uL Basophils # (Auto) 0.0 0.0-0.1 10^3/uL Immature Granulocyte # (Auto) 0.1 0.0-0.1 10^3/uL Prothrombin Time 12.1 L 12.2-14.7 SEC INR Comment 0.9 0.8-1.4 Activated Partial Thromboplast Time 25 24-35 SEC Sodium Level 143 135-145 MMOL/L Potassium Level 4.7 3.6-5.0 MMOL/L Chloride Level 107 98-107 MMOL/L Carbon Dioxide Level 23 21-32 MMOL/L Anion Gap 13 5-14 MMOL/L Blood Urea Nitrogen 10 7-18 MG/DL Creatinine 1.38 H 0.60-1.30 MG/DL Estimat Glomerular Filtration Rate 45 BUN/Creatinine Ratio 7 Glucose Level 146 H 70-105 MG/DL Calcium Level 9.6 8.5-10.1 MG/DL Corrected Calcium 9.8 8.5-10.1 MG/DL Magnesium Level 1.8 1.6-2.4 MG/DL Total Bilirubin 0.2 0.1-1.0 MG/DL Aspartate Amino Transf (AST/SGOT) 29 5-34 U/L Alanine Aminotransferase (ALT/SGPT) 35 0-55 U/L Alkaline Phosphatase 107 40-136 U/L Troponin I < 0.028 <0.028 NG/ML B-Type Natriuretic Peptide 47.5 <100.0 PG/ML Total Protein 7.1 6.4-8.2 GM/DL Albumin 3.7 3.2-4.5 GM/DL My Orders Orders - WILLIAMS RICO ORDERING MACHINE OPERATOR Cbc With Automated Diff (01/26/22 13:23) Magnesium (01/26/22 13:23) Chest 1 View, Ap/Pa Only (01/26/22 13:23) Ekg Tracing (01/26/22 13:23) Comprehensive Metabolic Panel (01/26/22 13:23) Protime With Inr (01/26/22 13:23) Partial Thromboplastin Time (01/26/22 13:23) O2 (01/26/22 13:23) Monitor-Rhythm Ecg Trace Only (01/26/22 13:23) Ed Iv/Invasive Line Start (01/26/22 13:23) Bnp [place] (01/26/22 13:23) Troponin I Jame (01/26/22 13:23) Aspirin Chewable Tablet (Baby Aspirin Ch (01/26/22 13:30) Albuterol/Ipra Inhalation Soln (Duoneb I (01/26/22 13:30) Svn Small Volume Nebulizer (01/26/22 13:23) Ketorolac Injection (Toradol Injection) (01/26/22 14:15) Prochlorperazine Injection (Compazine In (01/26/22 14:15) Diphenhydramine Tablet (Benadryl Tablet) (01/26/22 14:30) Medications Given in ED Current Medications Medications Dose Ordered Sig/Vladimir Route Start Time Stop Time Status Last Admin Dose Admin Albuterol/ Ipratropium 3 ml ONCE ONCE INH 01/26/22 13:30 01/26/22 13:31 DC 01/26/22 13:58 3 ML Aspirin 324 mg ONCE ONCE PO 01/26/22 13:30 01/26/22 13:31 DC 01/26/22 13:49 324 MG Diphenhydramine HCl 25 mg ONCE ONCE PO 01/26/22 14:30 01/26/22 14:31 01/26/22 14:20 25 MG Ketorolac Tromethamine 30 mg ONCE ONCE IM 01/26/22 14:15 01/26/22 14:16 DC 01/26/22 14:12 30 MG Prochlorperazine Edisylate 10 mg ONCE ONCE IM 01/26/22 14:15 01/26/22 14:16 DC 01/26/22 14:13 10 MG Vital Signs/I&O 01/26/22 01/26/22 01/26/22 13:14 13:45 13:58 Temp 36.8 Pulse 109 Resp 26 B/P (MAP) 179/123 (141) Pulse Ox 96 96 93 O2 Delivery Nasal Cannula Nasal Cannula Nasal Cannula O2 Flow Rate 4.00 4.00 4.00 Capillary Refill : Less Than 3 Seconds Blood Pressure Mean: 141 Progress Note : Progress Note Patient is nontoxic and well-hydrated on exam. She is wearing her 4 L of oxygen via nasal cannula which is her baseline. Vital signs are reassuring with no hypoxia, tachycardia, or marked tachypnea. Body habitus makes lung auscultation difficult however there is no obvious adventitious lung sounds noted. Specifically there is no wheezing or crackles/rales. She does have mild pitting edema in bilateral lower extremities but she states this is improved recently compared to normal. No focal neurologic deficits. She is awake alert and oriented answering all questions appropriately. Pupils are equal round reactive to light. Extraocular movements are intact. There is no indication for cross- sectional imaging of the head at this time. Laboratory evaluation overall reassuring. Patient is slightly anemic but this is not new when historical labs are reviewed. Troponin is negative. BNP not elevated. No acute changes in her chest x-ray. EKG is complicated by motion artifact however there is no obvious ischemic changes given the difficulties in interpretation as patient was unable to stop shaking her legs when the EKG was obtained. She was given IM Compazine and ketorolac for migraine abortive therapy. IV access was difficult thus the medications were given intramuscularly. Patient will be discharged back to [facility] and rehab. Follow-up with PCP. Return precautions for urgent symptomology discussed. Patient verbalized understanding. ECG EKG : EKG Time: 14:25 Rate: 84 Comment EKG is very difficult to interpret due to motion artifact; patient was unable to keep her legs still during the EKG despite being asked multiple times; this EKG was the best that could be obtained after multiple attempts; definitive interpretation is difficult however there is no obvious ST depression or elevation of clinical significance Departure Impression Primary Impression: Migraine Qualified Codes: G43.901 - Migraine, unspecified, not intractable, with status migrainosus Disposition: 01 HOME, SELF-CARE Condition: Stable Departure-Patient Inst. Decision time for Depature: 14:40 Referrals: [facility] (PCP/Family) Primary Care Physician Patient Instructions: Migraines (DC) WILLIAMS RICO APRN Jan 26, 2022 13:47
[2022-01-26 13:55] LABS: ALBUMIN 3.7 GM/DL (3.2-4.5); POTASSIUM 4.7 MMOL/L (3.6-5.0)
[2022-01-26 13:56] LABS: INR 0.9 (0.8-1.4); PROTHROMBIN TIME PATIENT 12.1 SEC (12.2-14.7)
[2022-01-26 13:57] LABS: CALCIUM 9.6 MG/DL (8.5-10.1)
[2022-01-26 13:58] LABS: TOTAL PROTEIN 7.1 GM/DL (6.4-8.2)
[2022-01-26 13:59] LABS: BILIRUBIN,TOTAL 0.2 MG/DL (0.1-1.0)
[2022-01-26 14:01] LABS: CREATININE SERUM 1.38 MG/DL (0.60-1.30)
--- NOTE | 2022-01-26 14:02 | Diagnostic Imaging Report ---
CLINICAL INDICATIONS: Patient with increasing shortness of air and intermittent chest pain since 01/16. EXAM: Portable chest x-ray upright view. COMPARISON: Chest x-ray dated 11/22/2021. FINDINGS: Lungs/pleura: Again seen consolidated appearance of the left lung base region which may be related to hard or extrathoracic soft tissue shadows. Lung disease in this area cannot be completely evaluated. Otherwise there is no definite lung infiltrate. There is no pneumothorax. There is no pleural effusion. Mediastinum: Unremarkable. Pulmonary vasculature: Unremarkable. Heart: Unremarkable. Bones/extrathoracic soft tissue: Unremarkable. IMPRESSION: 1: Stable chest x-ray exam with consolidation of the left lung base region. This may be related to heart shadow or soft tissue prominence in the region. This limits evaluation for infiltrates or lung disease in this area. 2: There is no interval lung infiltrate. Dictated by: Dictated on workstation # [id number]
[2022-01-26 14:04] LABS: MAGNESIUM 1.8 MG/DL (1.6-2.4)
[2022-01-26] MEDS ORDERED: KETOROLAC 30 MG/ML VIAL IM ONE (14:15)
[2022-01-26] MEDS ORDERED: PROCHLORPERAZINE 10 MG/2ML INJ (COMPAZINE) IM ONE (14:15)
[2022-01-26] MEDS ORDERED: diphenhydrAMINE 25 MG TAB (BENADRYL) PO ONE (14:30)
[2022-01-26 14:53] VITALS: BP 147/107
== END 2022-01-26 14:53 | disposition home or self-care (01) ==
LOC: EDUNIT# 13:02 → ER 13:04
DX: G43.909 Migraine, unspecified, not intractable, without status migrainosus (principal); E66.01 Morbid (severe) obesity due to excess calories; F17.290 Nicotine dependence, other tobacco product, uncomplicated; Z68.42 Body mass index [BMI] 45.0-49.9, adult
CPT/HCPCS: 36415; 71045; 80053; 83735; 83880; 84484; 85025; 85610; 85730; 93005; 93041; 94640

== ENCOUNTER 2022-02-10 15:37 | Inpatient (IN) | payer MEDICARE, MEDICAID ==
[~2022-02-10] VITALS: Ht 177.8 cm; Wt 153.6 kg
--- NOTE | 2022-02-10 15:53 | ED Respiratory ---
General Chief Complaint: Respiratory Problems Stated Complaint: SOA Nursing Triage Note: PT ARRIVED PER EMS, PT CO OF SOA, NAUSEA, WT GAIN, PT IS FROM [facility]. PT IS WEARING O2 @4L PER N/C.PT TESTED DEEPIKA FOR COVID TODAY Source: patient, EMS, skilled nursing records Exam Limitations: no limitations History of Present Illness Date Seen by Provider: Feb 10, 2022 Time Seen by Provider: 15:43 Initial Comments 56-year-old female with past medical history of chronic respiratory failure on 4 L oxygen, CHF, hypertension coming in via EMS from her skilled nursing due to concerns for increasing shortness of breath and increasing oxygen requirements. Reportedly hypoxic per the skilled nursing, unsure how low her oxygen was. She states she been feeling worse over the past several days and has had significant weight gain. Was 131 kg in October, now is 177 kg, with a lot of it being fluid. Endorses that chest pain for the past hour as well. She believes she could have had a fever for the past day. Otherwise denying any other acute complaints. EMS reports she had an episode of nausea and vomiting in the ambulance. Allergies and Home Medications Allergies Coded Allergies: buspirone (Verified Allergy, Mild, 05/02/17) Made"legs Shaky" amitriptyline (Verified Allergy, Unknown, 05/02/17) " MAKES ME DO WEIRD THINGS LIKE WALK IN MY SLEEP AND HAVE HALLUCINATIONS." amlodipine (Verified Allergy, Unknown, 03/20/21) Patient Home Medication List Home Medication List Reviewed: Yes Acetaminophen (Tylenol) 325 Mg Tablet, 650 MG PO Q4H PRN for PAIN-MILD (1-4), (Reported) Entered as Reported by: SEAN ARTEAGA on 03/20/21 1008 Albuterol Sulfate (Ventolin Hfa) 1 Puff Puff, 2 PUFF IH Q4H PRN for SHORTNESS OF BREATH, (Reported) Entered as Reported by: SEAN ARTEAGA on 03/20/21 1008 Aspirin (Aspirin EC) 81 Mg Tablet.dr, 81 MG PO DAILY, (Reported) Entered as Reported by: HARSH PARRISH on 11/19/17 1603 Benzonatate (Benzonatate) 100 Mg Capsule, 100 MG PO QID, (Reported) Entered as Reported by: DANIELLE RICHARD on 07/31/20 1616 Bumetanide (Bumetanide) 2 Mg Tablet, 2 MG PO DAILY, (Reported) Entered as Reported by: SEAN ARTEAGA on 03/20/21 1008 Carvedilol (Carvedilol) 3.125 Mg Tablet, 3.125 MG PO BID, (Reported) Entered as Reported by: SEAN ARTEAGA on 03/20/21 1008 Cholecalciferol (Vitamin D3) (Vitamin D3) 50 Mcg (2000 Unit) Tab.chew, 50 MCG PO DAILY, (Reported) Entered as Reported by: CARLOS BANSAL on 11/14/21 1048 Clonazepam (Clonazepam) 1 Mg Tablet, 1 MG PO BID PRN, (Reported) Entered as Reported by: CARLOS BANSAL on 11/14/21 104 Dulaglutide (Trulicity) 0.75 Mg/0.5 Ml Pen.injctr, 0.75 MG SQ WEEK, (Reported) Entered as Reported by: CARLOS BANSAL on 11/14/21 104 Duloxetine HCl (Duloxetine HCl) 30 Mg Capsule.dr, 30 MG PO DAILY, (Reported) Entered as Reported by: CARLOS BANSAL on 11/14/21 1048 Fluticasone/Umeclidin/Vilanter (Trelegy Ellipta 100-62.5-25) 100-62.5 Blst.w.de v, 1 EACH IH DAILY, (Reported) Entered as Reported by: CARLOS BANSAL on 11/14/21 1048 Glimepiride (Glimepiride) 1 Mg Tablet, 1 MG PO DAILY PRN for WHEN TAKING PREDNISONE, (Reported) Entered as Reported by: HARSH PARRISH on 04/29/17 1346 Insulin Detemir (Levemir Flextouch) 100 Unit/Ml (3 Ml) Insuln.pen, 25 UNIT SQ BID, (Reported) Entered as Reported by: CARLOS BANSAL on 11/14/21 1048 Insulin Regular, Human (NovoLIN R Flexpen) 100 Unit/Ml (3 Ml) Insuln.pen, 15 UNIT SQ TIDWM, (Reported) Entered as Reported by: CARLOS BANSAL on 11/14/21 1048 Ipratropium/Albuterol Sulfate (Iprat-Albut 0.5-3(2.5) mg/3 ml) 0.5 Mg-3 Mg (2.5 Mg Base)/3 Ml Ampul.neb, 3 ML IH Q6H PRN for SHORTNESS OF BREATH, (Reported) Entered as Reported by: CARLOS BANSAL on 11/14/21 1048 Magnesium Oxide (Magnesium Oxide) 400 Mg Magnesium Tablet, 400 MG PO BID Prescribed by: CAT BILLINGS on 11/22/21 185 Menthol (Biofreeze) 118 Ml Gel..ml., 1 APPLIC TP UD PRN for PAIN-BREAKTHROUGH, (Reported) Entered as Reported by: DANIELLE RICHARD on 12/18/20 1129 Metformin HCl (Metformin HCl) 500 Mg Tablet, 1,000 MG PO BID, (Reported) Entered as Reported by: CARLOS BANSAL on 11/14/21 1048 Methenamine Hippurate (Methenamine Hippurate) 1 Gram Tablet, 1 GM PO BID, (Re ported) Entered as Reported by: CARLOS BANSAL on 11/14/21 104 Multivitamin/Iron/Folic Acid (Centrum Women Tablet) 1 Each Tablet, 1 EACH PO DAILY, (Reported) Entered as Reported by: DANIELLE RICHARD on 12/18/20 1129 Nystatin (Nystatin) 100,000 Unit/Ml Oral.susp, 5 ML PO HS, (Reported) Entered as Reported by: CARLOS BANSAL on 11/14/21 1048 Olanzapine (Olanzapine) 10 Mg Tablet, 10 MG PO HS, (Reported) Entered as Reported by: DANIELLE RICHARD on 07/31/20 1616 Oxybutynin Chloride (Oxybutynin Chloride) 5 Mg Tablet, 5 MG PO BID, (Reported) Entered as Reported by: SEAN ARTEAGA on 03/20/21 1008 Pantoprazole Sodium (Pantoprazole Sodium) 40 Mg Tablet.dr, 40 MG PO DAILY, (Reported) Entered as Reported by: SEAN ARTEAGA on 03/20/21 1008 Potassium Chloride (K-Tab ER) 20 Meq Tablet.er, 20 MEQ PO DAILY, (Reported) Entered as Reported by: CARLOS BANSAL on 11/14/21 1048 Prednisone (Prednisone) 10 Mg Tab, 10 MG PO DAILY, (Reported) Entered as Reported by: DANIELLE RICHARD on 07/31/20 1616 Promethazine HCl (Promethazine HCl) 12.5 Mg Tablet, 12.5 MG PO Q6H, (Reported) Entered as Reported by: CARLOS BANSAL on 11/14/21 1048 Rizatriptan Benzoate (Rizatriptan) 10 Mg Tablet, 10 MG PO DAILY, (Reported) Entered as Reported by: CARLOS BANSAL on 11/14/21 1048 Rosuvastatin Calcium (Rosuvastatin Calcium) 20 Mg Tablet, 20 MG PO HS, (Reported) Entered as Reported by: SEAN ARTEAGA on 03/20/21 1008 Review of Systems Review of Systems Constitutional: fever EENTM: No blurred vision Respiratory: cough, short of breath Cardiovascular: chest pain Gastrointestinal: No abdominal pain Genitourinary: no symptoms reported Musculoskeletal: no symptoms reported Skin: no symptoms reported Psychiatric/Neurological: No Symptoms Reported Hematologic/Lymphatic: No Symptoms Reported Immunological/Allergic: no symptoms reported All Other Systems Reviewed Negative Unless Noted: Yes Past Lttpjkn-Rpvase-Bpmjhj Hx Patient Social History Tobacco Use?: No Smoking Status: Former Smoker Use of E-Cig and/or Vaping dev: Yes Substance use?: No Alcohol Use?: No Pt feels they are or have been: No Immunizations Up To Date Tetanus Booster (TDap): Unknown Influenza Vaccine Up-to-Date: Yes; Up-to-Date First/Initial COVID19 Vaccinat: 08/03/20 Second COVID19 Vaccination Dustin: 08/27 Third COVID19 Vaccination Date: 08/03/20 Seasonal Allergies Seasonal Allergies: No Past Medical History Surgery/Hospitalization HX: IDDM,CHF,COPD,ANXIETY,HIGH LIPIDS, acute kidney failure, uti, Surgeries: Yes (EGD/COLONOSCOPY; CARDIAC CATH 09/18/17--NO INTERVENTION) Cardiac Respiratory: Yes (O2 AT 4L/NC) Pneumonia, Chronic Bronchitis, Sleep Apnea, COPD Currently Using CPAP: No Currently Using BIPAP: Yes Cardiac: Yes Cardiomyopathy, Chronic Edema/Swelling, Coronary Artery Disease, High Cholesterol, Hypertension Neurological: Yes Headaches /Migraines 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 Disorders: No 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 Disorders: Denies [employer] History: Menopausal Sexually Transmitted Disease: No HIV/AIDS: No Genitourinary: Yes Bladder Infection Gastrointestinal: Yes (GASTRITIS AND ESOPHAGEAL CANDIDIASIS 04/2017) Gastroesophageal Reflux, Gastrointestinal Bleed, Chronic Constipation, Chronic Diarrhea, Esophagitis, Ulcer Musculoskeletal: Yes (chronic shoulder and neck pain--OPIATE DEPENDENT;MINIMALLY AMBULATORY) Degenerate Disk Disease, Arthritis, Chronic Back Pain Endocrine: Yes (NIDDM; MORBID OBESITY) Diabetes, Non-Insulin dep HEENT: No Cancer: No Psychosocial: Yes (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; POLYSUBSTANCE ABUSE) Sleep Difficulties, Anxiety, Suicide Attempts, Bipolar, Depression Integumentary: No Blood Disorders: Yes (ANEMIA) Adverse Reaction/Blood Tranf: No Family Medical History Cancer 03 MOTHER, Onset:66 (LUNG ) 09 BROTHER (LUNG ) Congestive heart failure 03 FATHER Heart Disease, Cancer SOCIAL HISTORY : -SMOKING--3-4 PPD -ETOH--DENIES USE -DRUG USE--+ IV METH AND ALSO SMOKES IN ON A REGULAR BASIS; 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 0.9oz. [id number]; 49.00 BMI Method:Stated General Appearance: WD/WN, no apparent distress, obese Eyes: Bilateral Eye Normal Inspection HEENT: PERRL/EOMI, normal ENT inspection, pharynx normal Neck: non-tender, full range of motion, supple, normal inspection Respiratory: chest non-tender, no respiratory distress, no accessory muscle use, crackles Cardiovascular: regular rate, rhythm, no edema, no murmur Gastrointestinal: normal bowel sounds, non tender, soft, other (Distended abdomen with edema) Extremities: normal range of motion, non-tender, no calf tenderness, normal capillary refill, pedal edema Neurologic/Psychiatric: no motor/sensory deficits, alert, normal mood/affect Skin: normal color, warm/dry Lymphatic: no adenopathy Progress/Results/Core Measures Suspected Sepsis SIRS Temperature: Pulse: 105 Respiratory Rate: 24 Laboratory Tests 02/10/22 15:45: White Blood Count 7.2 Blood Pressure 136 /116 Mean: 123 Laboratory Tests 02/10/22 15:45: Creatinine 1.12, INR Comment 0.8, Platelet Count 256, Total Bilirubin 0.2 Results/Orders Lab Results Laboratory Tests Test 02/10/22 15:45 02/10/22 15:58 Range/Units White Blood Count 7.2 4.3-11.0 10^3/uL Red Blood Count 3.80 3.80-5.11 10^6/uL Hemoglobin 9.6 L 11.5-16.0 g/dL Hematocrit 33 L 35-52 % Mean Corpuscular Volume 86 80-99 fL Mean Corpuscular Hemoglobin 25 25-34 pg Mean Corpuscular Hemoglobin Concent 30 L 32-36 g/dL Red Cell Distribution Width 15.1 H 10.0-14.5 % Platelet Count 256 130-400 10^3/uL Mean Platelet Volume 9.9 9.0-12.2 fL Immature Granulocyte % (Auto) 2 % Neutrophils (%) (Auto) 74 42-75 % Lymphocytes (%) (Auto) 17 12-44 % Monocytes (%) (Auto) 7 0-12 % Eosinophils (%) (Auto) 0 0-10 % Basophils (%) (Auto) 0 0-10 % Neutrophils # (Auto) 5.4 1.8-7.8 10^3/uL Lymphocytes # (Auto) 1.2 1.0-4.0 10^3/uL Monocytes # (Auto) 0.5 0.0-1.0 10^3/uL Eosinophils # (Auto) 0.0 0.0-0.3 10^3/uL Basophils # (Auto) 0.0 0.0-0.1 10^3/uL Immature Granulocyte # (Auto) 0.2 H 0.0-0.1 10^3/uL Prothrombin Time 11.5 L 12.2-14.7 SEC INR Comment 0.8 0.8-1.4 Activated Partial Thromboplast Time 33 24-35 SEC Sodium Level 132 L 135-145 MMOL/L Potassium Level 4.2 3.6-5.0 MMOL/L Chloride Level 91 L 98-107 MMOL/L Carbon Dioxide Level 33 H 21-32 MMOL/L Anion Gap 8 5-14 MMOL/L Blood Urea Nitrogen 6 L 7-18 MG/DL Creatinine 1.12 0.60-1.30 MG/DL Estimat Glomerular Filtration Rate 57 BUN/Creatinine Ratio 5 Glucose Level 163 H 70-105 MG/DL Calcium Level 8.9 8.5-10.1 MG/DL Corrected Calcium 9.0 8.5-10.1 MG/DL Magnesium Level 1.5 L 1.6-2.4 MG/DL Total Bilirubin 0.2 0.1-1.0 MG/DL Aspartate Amino Transf (AST/SGOT) 28 5-34 U/L Alanine Aminotransferase (ALT/SGPT) 32 0-55 U/L Alkaline Phosphatase 87 40-136 U/L Troponin I < 0.028 <0.028 NG/ML Total Protein 7.2 6.4-8.2 GM/DL Albumin 3.9 3.2-4.5 GM/DL Lipase 13 8-78 U/L My Orders Orders - SUNITHA HART MD Chest 1 View, Ap/Pa Only (02/10/22 15:49) Bnp Tillman (02/10/22 15:49) Cbc With Automated Diff (02/10/22 15:49) Comprehensive Metabolic Panel (02/10/22 15:49) Lipase (02/10/22 15:49) Magnesium (02/10/22 15:49) Protime With Inr (02/10/22 15:49) Partial Thromboplastin Time (02/10/22 15:49) Troponin I Tillman (02/10/22 15:49) Influenza A And B By Pcr (02/10/22 15:49) Ed Iv/Invasive Line Start (02/10/22 15:49) Ekg Tracing (02/10/22 15:49) O2 (02/10/22 15:49) Monitor-Rhythm Ecg Trace Only (02/10/22 15:49) Covid 19 Inhouse Test (02/10/22 15:49) Furosemide Injection (Lasix Injection) (02/10/22 16:30) Vital Signs/I&O 02/10/22 15:37 Temp 36.4 Pulse 105 Resp 24 B/P (MAP) 136/116 (123) Pulse Ox 95 O2 Delivery Nasal Cannula O2 Flow Rate 4.00 Capillary Refill : Less Than 3 Seconds Blood Pressure Mean: 123 Progress Note : Progress Note 56-year-old female with above history coming in due to concerns for respiratory issues and new fever. ABCs were intact and vitals were stable on presentation on her baseline 4 L oxygen. EKG with no acute ischemic changes. An IV was placed and basic labs were obtained including cardiac biomarkers. Troponin is negative, influenza A test is positive. She does look very volume overloaded, and given she has gained 46 kg over the past 6 months with what appears to be almost all edema on exam, likely related to heart failure. Converted her Bumex to 80 mg of Lasix IV and gave her a dose in the ER. Contacted Dr. 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 I then contacted Dr. Martinez who will admit her under inpatient status for further evaluation and management. ECG Initial ECG Impression Date: Feb 10, 2022 Initial ECG Impression Time: 15:58 Initial ECG Rate: 105 Initial ECG Rhythm: S.Tach Comment Narrow QRS, normal axis, no significant ST elevation or T wave abnormality Diagnostic Imaging Diagonstic Imaging: Xray (chest) Comments [facility]. [place], [place] NAME: SCOUT BURGESS [facility] REC#: [id number] PT STATUS: REG ER : 1965 PHYSICIAN: SUNITHA HART MD ADMIT DATE: 02/10/22/ER Draft Date of Exam:02/10/22 CHEST 1 VIEW, AP/PA ONLY INDICATION: Shortness of breath. Comparison is made with prior exam of 01/26/2022. FINDINGS: There is cardiomegaly. There is some venous congestion. No pleural effusion or pneumothorax. IMPRESSION: Cardiomegaly and some central pulmonary venous congestion. Dictated on workstation # [id number] Dict: 02/10/22 1629 Trans: 02/10/22 1631 [facility] [id number] Interpreted by: ALVARO BLACKMAN MD Electronically signed by: Departure Impression Primary Impression: Acute on chronic respiratory failure Qualified Codes: J96.21 - Acute and chronic respiratory failure with hypoxia Additional Impressions: Influenza A CHF exacerbation Qualified Codes: I50.9 - Heart failure, unspecified Disposition: ADMITTED INPATIENT Condition: Stable Admissions Decision to Admit Reason: Admit from ER (General) Decision to Admit/Date: Feb 10, 2022 Time/Decision to Admit Time: 16:20 Departure-Patient Inst. Referrals: [facility] (PCP/Family) Primary Care Physician SUNITHA HART MD Feb 10, 2022 15:53
[2022-02-10 15:58] LABS: BASOPHILS % (AUTO) 0 % (0-10); EOSINOPHILS % (AUTO) 0 % (0-10); HEMATOCRIT 33 % (35-52); HEMOGLOBIN 9.6 g/dL (11.5-16.0); LYMPHOCYTES # (AUTO) 1.2 10^3/uL (1.0-4.0); LYMPHOCYTES % (AUTO) 17 % (12-44); MEAN CORPUSCULAR HEMOGLOBIN 25 pg (25-34); MEAN CORPUSCULAR HGB CONC 30 g/dL (32-36); MEAN CORPUSCULAR VOLUME 86 fL (80-99); MEAN PLATELET VOLUME 9.9 fL (9.0-12.2); MONOCYTES # (AUTO) 0.5 10^3/uL (0.0-1.0); MONOCYTES % (AUTO) 7 % (0-12); NEUTROPHILS # (AUTO) 5.4 10^3/uL (1.8-7.8); NEUTROPHILS % (AUTO) 74 % (42-75); PLATELET COUNT 256 10^3/uL (130-400); WHITE BLOOD COUNT 7.2 10^3/uL (4.3-11.0)
[2022-02-10 16:05] LABS: ALBUMIN 3.9 GM/DL (3.2-4.5); CHLORIDE 91 MMOL/L (98-107); POTASSIUM 4.2 MMOL/L (3.6-5.0); SODIUM 132 MMOL/L (135-145)
[2022-02-10 16:06] LABS: CALCIUM 8.9 MG/DL (8.5-10.1)
[2022-02-10 16:08] LABS: GLUCOSE 163 MG/DL (70-105); TOTAL PROTEIN 7.2 GM/DL (6.4-8.2)
[2022-02-10 16:09] LABS: BILIRUBIN,TOTAL 0.2 MG/DL (0.1-1.0); CARBON DIOXIDE 33 MMOL/L (21-32); INR 0.8 (0.8-1.4); PROTHROMBIN TIME PATIENT 11.5 SEC (12.2-14.7)
[2022-02-10 16:11] LABS: ALKALINE PHOSPHATASE 87 U/L (40-136); CREATININE SERUM 1.12 MG/DL (0.60-1.30); GFR ESTIMATED 57
[2022-02-10 16:12] LABS: BUN/CREATININE RATIO 5
[2022-02-10 16:14] LABS: ALANINE AMINOTRANSFERASE 32 U/L (0-55); MAGNESIUM 1.5 MG/DL (1.6-2.4)
[2022-02-10 16:15] LABS: LIPASE 13 U/L (8-78)
[2022-02-10] MEDS ORDERED: FUROSEMIDE 40 MG/4 ML INJ (LASIX) IVP ONE (16:30)
--- NOTE | 2022-02-10 16:31 | Diagnostic Imaging Report ---
INDICATION: Shortness of breath. Comparison is made with prior exam of 01/26/2022. FINDINGS: There is cardiomegaly. There is some venous congestion. No pleural effusion or pneumothorax. IMPRESSION: Cardiomegaly and some central pulmonary venous congestion. Dictated by: Dictated on workstation # [id number]
[2022-02-10] MEDS ORDERED: FUROSEMIDE 40 MG/4 ML INJ (LASIX) IV SCH (17:30)
[2022-02-10 18:04] VITALS: BP 143/93
[2022-02-10] MEDS: OSELTAMIVIR 75 MG (TAMIFLU) CAPSULE PO SCH (18:31)
[2022-02-10 20:00] VITALS: BP 174/107
[2022-02-10] MEDS: FUROSEMIDE 40 MG/4 ML INJ (LASIX) IV SCH (23:44)
[2022-02-11] VITALS (8 sets, daily range): BP systolic 136–167; BP diastolic 71–96
--- NOTE | 2022-02-11 08:46 | Consultation-Cardiology ---
HPI-Cardiology Cardiology Consultation Date of Consultation 02/11/22 Date of Admission Time Seen by Provider: 08:40 Indication: Chest pain, shortness of breath HPI 56-year-old lady with history of congestive heart failure that has resolved, morbid obesity. COPD and oxygen dependent, patient reported having increasing dyspnea, cough, chest pain and body ache, generalized fatigue. Requiring higher oxygen. Patient came in from the [facility] and she was diagnosed with influenza A. On my evaluation she was laying down in bed, lethargic, complaining of generalized fatigue and generalized body ache. Still maintained on oxygen. Home Medications & Allergies Allergies: Coded Allergies: buspirone (Verified Allergy, Mild, 05/02/17) Made"legs Shaky" amitriptyline (Verified Allergy, Unknown, 05/02/17) " MAKES ME DO WEIRD THINGS LIKE WALK IN MY SLEEP AND HAVE HALLUCINATIONS." amlodipine (Verified Allergy, Unknown, 03/20/21) Home Medication List Reviewed: Yes KNB-Lyrnrh-Nmmvgs Hx Patient Social History Marital Status: single Employed/Student: retired Drug of Choice: + IV METH, ALSO SMOKES IT; MULTIPLE BENZODIAZEPINE OD'S Smoking Status: Never a Smoker Type Used: Cigarettes 2nd Hand Smoke Exposure: Yes Recent Hopitalizations: Yes Have you traveled recently?: No Alcohol Use?: No Immunizations Up To Date Tetanus Booster (TDap): Unknown Date of Pneumonia Vaccine: Apr 30, 2018 Date of Influenza Vaccine: Jan 07, 2022 Past Medical History Discussed below Family Medical History Significant Family History: Heart Disease, Cancer Family History: Cancer 03 MOTHER, Onset:66 (LUNG ) 09 BROTHER (LUNG ) Congestive heart failure 03 FATHER Review of Systems-General Review of Systems Constitutional: fever, malaise, weakness EENTM: No blurred vision Respiratory: see HPI, cough, dyspnea on exertion, short of breath Cardiovascular: see HPI, chest pain; No edema, No Hx of Intervention, No palpitations, No syncope, No vascular heart diseas, No other Gastrointestinal: No abdominal pain Genitourinary: no symptoms reported Musculoskeletal: no symptoms reported Skin: no symptoms reported Psychiatric/Neurological: No Symptoms Reported All Other Systems Reviewed Negative Unless Noted: Yes Reviewed Test Results Reviewed Test Results Lab Laboratory Tests Test 02/10/22 15:45 02/10/22 15:58 Range/Units White Blood Count 7.2 4.3-11.0 10^3/uL Red Blood Count 3.80 3.80-5.11 10^6/uL Hemoglobin 9.6 L 11.5-16.0 g/dL Hematocrit 33 L 35-52 % Mean Corpuscular Volume 86 80-99 fL Mean Corpuscular Hemoglobin 25 25-34 pg Mean Corpuscular Hemoglobin Concent 30 L 32-36 g/dL Red Cell Distribution Width 15.1 H 10.0-14.5 % Platelet Count 256 130-400 10^3/uL Mean Platelet Volume 9.9 9.0-12.2 fL Immature Granulocyte % (Auto) 2 % Neutrophils (%) (Auto) 74 42-75 % Lymphocytes (%) (Auto) 17 12-44 % Monocytes (%) (Auto) 7 0-12 % Eosinophils (%) (Auto) 0 0-10 % Basophils (%) (Auto) 0 0-10 % Neutrophils # (Auto) 5.4 1.8-7.8 10^3/uL Lymphocytes # (Auto) 1.2 1.0-4.0 10^3/uL Monocytes # (Auto) 0.5 0.0-1.0 10^3/uL Eosinophils # (Auto) 0.0 0.0-0.3 10^3/uL Basophils # (Auto) 0.0 0.0-0.1 10^3/uL Immature Granulocyte # (Auto) 0.2 H 0.0-0.1 10^3/uL Prothrombin Time 11.5 L 12.2-14.7 SEC INR Comment 0.8 0.8-1.4 Activated Partial Thromboplast Time 33 24-35 SEC Sodium Level 132 L 135-145 MMOL/L Potassium Level 4.2 3.6-5.0 MMOL/L Chloride Level 91 L 98-107 MMOL/L Carbon Dioxide Level 33 H 21-32 MMOL/L Anion Gap 8 5-14 MMOL/L Blood Urea Nitrogen 6 L 7-18 MG/DL Creatinine 1.12 0.60-1.30 MG/DL Estimat Glomerular Filtration Rate 57 BUN/Creatinine Ratio 5 Glucose Level 163 H 70-105 MG/DL Calcium Level 8.9 8.5-10.1 MG/DL Corrected Calcium 9.0 8.5-10.1 MG/DL Magnesium Level 1.5 L 1.6-2.4 MG/DL Total Bilirubin 0.2 0.1-1.0 MG/DL Aspartate Amino Transf (AST/SGOT) 28 5-34 U/L Alanine Aminotransferase (ALT/SGPT) 32 0-55 U/L Alkaline Phosphatase 87 40-136 U/L Troponin I < 0.028 <0.028 NG/ML B-Type Natriuretic Peptide 54.7 <100.0 PG/ML Total Protein 7.2 6.4-8.2 GM/DL Albumin 3.9 3.2-4.5 GM/DL Lipase 13 8-78 U/L Influenza Type A (RT-PCR) Detected H Not Detecte Influenza Type B (RT-PCR) Not Detected Not Detecte SARS-CoV-2 RNA (RT-PCR) Not Detected Not Detecte Physical Exam Physical Exam Vital Signs Vital Signs - First Documented 02/10/22 15:37 Temp 36.4 Pulse 105 Resp 24 B/P (MAP) 136/116 (123) Pulse Ox 95 O2 Delivery Nasal Cannula O2 Flow Rate 2.00 Capillary Refill : Less Than 3 Seconds Height, Weight, BMI Height: 5'9.00" Weight: 197lbs. 0.9oz. 89.979424nb; 48.58 BMI Method:Stated General Appearance: WD/WN, Mild Distress Eyes: Bilateral Eye Normal Inspection HEENT: PERRL/EOMI, TMs Normal, Normal ENT Inspection, Pharynx Normal, Moist Mucous Membranes Neck: Full Range of Motion, Normal Inspection, Non Tender, Supple, Carotid Bruit Respiratory: Chest Non Tender, No Accessory Muscle Use, No Respiratory Distress, Decreased Breath Sounds, Wheezing Cardiovascular: Regular Rate, Rhythm, No Edema, No Gallop, No JVD, Normal Peripheral Pulses, Systolic Murmur Gastrointestinal: Normal Bowel Sounds, No Organomegaly, No Pulsatile Mass, Non Tender, Soft Back: Normal Inspection, No CVA Tenderness, No Vertebral Tenderness Extremity: Normal Capillary Refill, Normal Inspection, Normal Range of Motion, Non Tender, No Calf Tenderness, No Pedal Edema Neurologic/Psychiatric: Alert, Oriented x3, No Motor/Sensory Deficits, Normal Mood/Affect Skin: Normal Color, Warm/Dry Lymphatic: No Adenopathy A/P-Cardiology Admission Diagnosis Influenza A Acute respiratory failure Chest pain Acute exacerbation of COPD Assessment/Plan Influenza A, generalized weakness, fatigue. Shortness of breath and cough. Managed by medical team Acute exacerbation of COPD, acute respiratory failure, baseline oxygen dependent using 4 L nasal cannula, currently feeling better on oxygen Continue to monitor Chest pain, generalized body ache, likely cardiac, cardiac enzymes and BNP were normal. Recurrent chest pain no shortness of breath still having chest pain and dyspnea in addition to peripheral edema. No change from baseline Abnormal stress test on 02/04/21 showing breast attenuation with reversible ischemia involving the whole anterior wall and anterolateral wall. Normal left ventricular size, EF 51%. SSS 8, SDS 6, TID 1.08. Congestive heart failure, chronic left ventricular systolic dysfunction, no nischemic cardiomyopathy, resolved. Last echocardiogram was done in October 2021 with normal LV size, ejection fraction 55 to 60%, PA pressure 30 to 35 mmHg, trivial aortic regurgitation. Unable to tolerate ROSITA-I or ARB d/t hx of renal failure. Coronary artery disease, history of cardiac catheterization done in March 2014 and September 2017 showing [id number] coronary artery disease nonobstructive disease. Repeat cardiac catheterization done in March 2021 showing dilated coronary system with mild ectasia in the LAD, nonobstructive disease. Severe COPD, oxygen dependent, status post respiratory failure in March and August 2018, has been followed by Dr. Ayala Acute exacerbation on this admission, managed by medical team Persistent migraine headache on multiple drugs, history of methamphetamine use managed by primary care physician Syncope, reporting improvement. No further episodes were reported. Continue to monitor at this time. No changes are recommended. Complete heart block with bradycardia, transient due to beta blockers and calcium channel blockers treatment, no further syncopal episodes were reported. Continue to monitor. History of sinus tachycardia, better at this time. Continue to monitor Hypertension, controlled, continue to monitor. Hx of renal failure, kidney function back to baseline, continue to monitor COPD, status post respiratory failure, oxygen dependent, previously followed by Dr. Trivedi. I will refer to Dr. Pina Obesity, BMI is 43. We discussed weight loss. History of anxiety, depression. History of diabetes mellitus, followed and managed by primary care physician. History of noncompliance with medication. Multiple addictions mainly prescription medications. Currently doing well. Ex Tobaccoism, encouraged to continue with smoking cessation History of methamphetamine use Mild carotid stenosis, nonobstructive disease by ultrasound in April 2021. FRANCESCO GOULD MD Feb 11, 2022 08:46
[2022-02-11] MEDS ORDERED: RT--FLUTICASONE/SALMETEROL 232-14 (AIRDUO RespiCLICK) IH SCH (09:00)
[2022-02-11 09:30] LABS: HEMATOCRIT 31 % (35-52); MEAN CORPUSCULAR HEMOGLOBIN 25 pg (25-34); MEAN CORPUSCULAR HGB CONC 29 g/dL (32-36); MEAN CORPUSCULAR VOLUME 84 fL (80-99); MEAN PLATELET VOLUME 9.8 fL (9.0-12.2); PLATELET COUNT 244 10^3/uL (130-400)
[2022-02-11] MEDS ORDERED: MIRA25TA PO (10:03)
[2022-02-11] MEDS ORDERED: DICL100G13 TOP (10:03)
[2022-02-11] MEDS ORDERED: PROM12.511 PO (10:03)
[2022-02-11] MEDS ORDERED: DULO60CA59 PO (10:03)
[2022-02-11] MEDS ORDERED: CALC600T80 PO (10:03)
[2022-02-11] MEDS ORDERED: OLAN7.5T18 PO (10:03)
[2022-02-11] MEDS ORDERED: SODI30SP2 NSEACH (10:03)
[2022-02-11] MEDS ORDERED: MAGN400T50 PO (10:03)
[2022-02-11] MEDS ORDERED: LOPE-175 PO (10:03)
[2022-02-11] MEDS ORDERED: POLY17PO6 PO (10:03)
[2022-02-11] MEDS ORDERED: METF-865 PO (10:03)
[2022-02-11] MEDS ORDERED: TOPI50TA13 PO (10:03)
[2022-02-11] MEDS ORDERED: INSU100I14 SC (10:03)
[2022-02-11 10:08] LABS: CALCIUM 8.7 MG/DL (8.5-10.1); CREATININE SERUM 1.01 MG/DL (0.60-1.30); POTASSIUM 3.1 MMOL/L (3.6-5.0)
[2022-02-11] MEDS: ASPIRIN E.C. 81 MG (ECOTRIN) TAB PO SCH (10:33)
--- NOTE | 2022-02-11 11:38 | History & Physical ---
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 She is complaining of TANG, chest pain, short of breath, entire body hurting, and poor appetite Source: patient Exam Limitations: clinical condition Date seen by provider: Feb 11, 2022 Time Seen by Provider: 11:36 Attending Physician [facility] PCP Admitting Physician: Jaison Norwood MD Attending Physician: Jaison Norwood MD Consult Date of Admission Feb 10, 2022 at 16:53 Home Medications Home Medications Reviewed patient Home Medication Reconciliation performed by pharmacy medication reconciliations resident care technician and/or nursing. Patients Allergies have been reviewed. Allergies Coded Allergies: buspirone (Verified Allergy, Mild, 02/11/22) Made"legs Shaky" amitriptyline (Verified Allergy, Unknown, 02/11/22) " MAKES ME DO WEIRD THINGS LIKE WALK IN MY SLEEP AND HAVE HALLUCINATIONS." amlodipine (Verified Allergy, Unknown, 02/11/22) [id number] Hx Patient Social History Marrital Status: single Employed/Student: retired Drug of Choice: History of IV METH, ALSO SMOKES IT; MULTIPLE BENZODIAZEPINE OD'S Smoking Status: Never a Smoker 2nd Hand Smoke Exposure: Yes Recent Hopitalizations: Yes Alcohol Use?: No Have you traveled recently?: No Immunizations Up To Date Tetanus Booster (TDap): Unknown Influenza Vaccine Up-to-Date: Yes; Up-to-Date First/Initial COVID19 Vaccinat: 04/09/20 Second COVID19 Vaccination Dustin: 04/28/20 Third COVID19 Vaccination Date: 05/10/21 Past Medical History Past Medical History 1. HTN 2. COPD 3. Asthma 4.Chronic Migraines 5. Anxiety 6. Depression 7. Endometrial hypertrophy 8. DMII 9. HLP- with elevated triglycerides 10. Chronic Insomnia 11. Gastritis 12. Methamphetamine abuse 13. Several admissions for overdose of benzodiazapine 14. Acute systolic heart failure 2014 15. Bipolar Disorder Past Surgical History 1. EGD- Gastritis Loja 2. Colonoscopy- Loja Family Medical History Significant Family History: Heart Disease, Cancer Review of Systems ([facility]) Constitutional: malaise Respiratory: short of breath Cardiovascular: chest pain Musculoskeletal: joint pain, muscle pain Psychiatric/Neurological: Anxiety Reviewed Test Results Reviewed Test Results Lab Laboratory Tests Test 02/10/22 15:45 02/10/22 15:58 02/11/22 09:20 Range/Units White Blood Count 7.2 9.0 4.3-11.0 10^3/uL Red Blood Count 3.80 3.68 L 3.80-5.11 10^6/uL Hemoglobin 9.6 L 9.0 L 11.5-16.0 g/dL Hematocrit 33 L 31 L 35-52 % Mean Corpuscular Volume 86 84 80-99 fL Mean Corpuscular Hemoglobin 25 25 25-34 pg Mean Corpuscular Hemoglobin Concent 30 L 29 L 32-36 g/dL Red Cell Distribution Width 15.1 H 15.1 H 10.0-14.5 % Platelet Count 256 244 130-400 10^3/uL Mean Platelet Volume 9.9 9.8 9.0-12.2 fL Immature Granulocyte % (Auto) 2 % Neutrophils (%) (Auto) 74 42-75 % Lymphocytes (%) (Auto) 17 12-44 % Monocytes (%) (Auto) 7 0-12 % Eosinophils (%) (Auto) 0 0-10 % Basophils (%) (Auto) 0 0-10 % Neutrophils # (Auto) 5.4 1.8-7.8 10^3/uL Lymphocytes # (Auto) 1.2 1.0-4.0 10^3/uL Monocytes # (Auto) 0.5 0.0-1.0 10^3/uL Eosinophils # (Auto) 0.0 0.0-0.3 10^3/uL Basophils # (Auto) 0.0 0.0-0.1 10^3/uL Immature Granulocyte # (Auto) 0.2 H 0.0-0.1 10^3/uL Prothrombin Time 11.5 L 12.2-14.7 SEC INR Comment 0.8 0.8-1.4 Activated Partial Thromboplast Time 33 24-35 SEC Sodium Level 132 L 139 135-145 MMOL/L Potassium Level 4.2 3.1 L 3.6-5.0 MMOL/L Chloride Level 91 L 90 L 98-107 MMOL/L Carbon Dioxide Level 33 H 36 H 21-32 MMOL/L Anion Gap 8 13 5-14 MMOL/L Blood Urea Nitrogen 6 L 5 L 7-18 MG/DL Creatinine 1.12 1.01 0.60-1.30 MG/DL Estimat Glomerular Filtration Rate 57 65 BUN/Creatinine Ratio 5 5 Glucose Level 163 H 152 H 70-105 MG/DL Calcium Level 8.9 8.7 8.5-10.1 MG/DL Corrected Calcium 9.0 8.5-10.1 MG/DL Magnesium Level 1.5 L 1.6-2.4 MG/DL Total Bilirubin 0.2 0.1-1.0 MG/DL Aspartate Amino Transf (AST/SGOT) 28 5-34 U/L Alanine Aminotransferase (ALT/SGPT) 32 0-55 U/L Alkaline Phosphatase 87 40-136 U/L Troponin I < 0.028 <0.028 NG/ML B-Type Natriuretic Peptide 54.7 <100.0 PG/ML Total Protein 7.2 6.4-8.2 GM/DL Albumin 3.9 3.2-4.5 GM/DL Lipase 13 8-78 U/L Influenza Type A (RT-PCR) Detected H Not Detecte Influenza Type B (RT-PCR) Not Detected Not Detecte SARS-CoV-2 RNA (RT-PCR) Not Detected Not Detecte Radiology 02/10/22 CXR: IMPRESSION: Cardiomegaly and some central pulmonary venous congestion. Physical Exam-([facility]) Physical Exam Vital Signs VS - Last 72 Hours, by Label 02/10/22 02/10/22 02/10/22 02/10/22 15:37 15:37 17:22 18:04 Temp 36.4 36.2 Pulse 105 105 113 Resp 24 16 18 B/P (MAP) 136/116 (123) 159/85 143/93 (110) Pulse Ox 95 94 94 O2 Delivery Nasal Cannula Nasal Cannula Nasal Cannula Nasal Cannula O2 Flow Rate 2.00 4.00 4.00 4.00 02/10/22 02/10/22 02/10/22 02/10/22 18:38 20:00 20:06 20:32 Temp 36.3 Pulse 110 113 Resp 20 B/P (MAP) 174/107 (129) Pulse Ox 94 92 93 O2 Delivery Nasal Cannula Nasal Cannula Nasal Cannula O2 Flow Rate 4.00 4.00 4.00 02/10/22 02/11/22 02/11/22 02/11/22 23:25 00:45 01:00 02:45 Temp 36.1 Pulse 99 103 Resp 18 B/P (MAP) 139/73 (95) Pulse Ox 93 94 94 O2 Delivery Nasal Cannula Nasal Cannula Nasal Cannula O2 Flow Rate 4.00 4.00 4.00 02/11/22 02/11/22 02/11/22 02/11/22 03:10 06:57 07:07 07:22 Temp 36.0 Pulse 101 106 98 Resp 18 20 B/P (MAP) 153/73 (99) 161/79 (106) Pulse Ox 95 94 94 O2 Delivery Nasal Cannula Nasal Cannula Nasal Cannula O2 Flow Rate 4.00 4.00 4.00 02/11/22 02/11/22 02/11/22 02/11/22 08:00 10:14 11:32 12:52 Temp 36.0 Pulse 100 96 Resp 20 B/P (MAP) 166/91 (116) Pulse Ox 96 93 90 O2 Delivery Nasal Cannula Nasal Cannula Nasal Cannula O2 Flow Rate 4.00 4.00 4.00 02/11/22 15:50 Temp 36.6 Pulse 110 Resp 24 B/P (MAP) 167/81 (109) Pulse Ox 94 O2 Delivery Nasal Cannula O2 Flow Rate 4.00 Capillary Refill : Less Than 3 Seconds General Appearance: mild distress Respiratory: decreased breath sounds, accessory muscle use, wheezing Cardiovascular: tachycardia Gastrointestinal: normal bowel sounds, non tender, soft Extremities: pedal edema (1+) Neurologic/Psychiatric: alert, oriented x 3 Skin: warm/dry Assessment/Plan Assessment/Plan Admission Status: Inpatient Order (span 2 midnights) Reason for Inpatient Admission: Influenza with multiple comorbidities and acute respiratory failure (1) Influenza A Status: Acute Assessment & Plan: Oseltamivir ordered. (2) Acute on chronic respiratory failure Status: Acute Assessment & Plan: Secondary to Influenza A, COPD exacerbation and CHF exacerbation. Supplemental oxygen as needed. Qualifiers: Qualified Codes: J96.21 - Acute and chronic respiratory failure with hypoxia (3) Chronic generalized pain Status: Chronic Assessment & Plan: Resume home medications (4) Obesity Status: Chronic Qualifiers: (5) Type 2 diabetes mellitus with complication Status: Chronic Assessment & Plan: Hold home insulin and diabetic meds. Sliding scale insulin and diabetic diet. (6) CHF (congestive heart failure) Status: Chronic (7) CHF exacerbation Status: Acute Assessment & Plan: Started on IV lasix 80 mg BID initially, Cardiology consulted, appreciate recommendations. Qualifiers: Qualified Codes: I50.23 - Acute on chronic systolic (congestive) heart failure (8) Anemia Status: Chronic Permanent Comment: Ferritin high, TIBC and iron normal 2020, consistent with anemia of chronic disease Last Edited By: Jaison Norwood on Feb 11, 2022 20:26 Qualifiers: Qualified Codes: D63.8 - Anemia in other chronic diseases classified elsewhere (9) Hypomagnesemia Status: Acute Assessment & Plan: Replace and monitor. (10) Primary hypertension Status: Chronic Assessment & Plan: Resume home meds. (11) Hyponatremia Status: Resolved Assessment & Plan: Improving, possibly hypervolemic hyponatremia. Monitor with continued diuresis. (12) Coronary artery disease without angina pectoris Assessment & Plan: Resume home meds. (13) Mixed hyperlipidemia Assessment & Plan: Resume home rosuvastatin. (14) Chronic headaches Status: Chronic (15) Anxiety Status: Chronic (16) COPD (chronic obstructive pulmonary disease) Status: Acute Assessment & Plan: On chronic low dose prednisone. Will increase to 60 mg daily due to acute wheezing with influenza. Qualifiers: Qualified Codes: J44.1 - Chronic obstructive pulmonary disease with (acute) exacerbation (17) DVT prophylaxis Status: Acute Assessment & Plan: Enoxaparin JAISON NORWOOD MD Feb 11, 2022 11:38
[2022-02-11] MEDS ORDERED: predniSONE 20 MG TAB PO NR (12:00)
[2022-02-11] MEDS: OSELTAMIVIR 75 MG (TAMIFLU) CAPSULE PO SCH (18:14)
[2022-02-11] MEDS: FUROSEMIDE 40 MG/4 ML INJ (LASIX) IV SCH (18:18)
[2022-02-11] MEDS ORDERED: DICLOFENAC 1% GEL 100 GM (VOLTAREN) TUBE TOP PRN (20:15)
[2022-02-11] MEDS ORDERED: BENZONATATE 100 MG (TESSALON) CAPSULE PO PRN (20:15)
[2022-02-11] MEDS ORDERED: SALINE NASAL SPRAY (OCEAN) 45 ML BTL PRN (20:15)
[2022-02-11] MEDS ORDERED: RT-ALBUTEROL SULF 2.5 MG/3 ML PRE-MIX VIAL IH PRN (20:15)
[2022-02-11] MEDS: RT--FLUTICASONE/SALMETEROL 232-14 (AIRDUO RespiCLICK) IH SCH (21:17)
[2022-02-11] MEDS: ENOXAPARIN 40 MG/0.4 ML (LOVENOX) SYR SQ SCH (22:20)
[2022-02-11] MEDS: METHENAMINE HIPP (UREX) 1 GM TABLET PO SCH (22:21)
[2022-02-11] MEDS: clonazePAM 1 MG (KlonoPIN) TAB PO SCH (22:21)
[2022-02-11] MEDS: ROSUVASTATIN 20 MG (CRESTOR) TABLET PO SCH (22:21)
[2022-02-11] MEDS: inSUlin ASPART (NovoLOG) 1 UNIT/0.01 ML (CHARGE PER UNIT) SC SCH (22:21)
[2022-02-11] MEDS: OXYBUTYNIN (DITROPAN) 5 MG TAB PO SCH (22:21)
[2022-02-11] MEDS: CALCIUM CARBONATE 600 MG (CALCARB) TAB PO SCH (22:21)
[2022-02-11] MEDS ORDERED: METHYL SALICYLATE/MENTHOL (BENGAY, MUSCLE RUB) 3 OZ TUBE TP PRN (22:30)
[2022-02-12] MEDS: toPIRamate 25 MG (TOPAMAX) TAB PO SCH ×3 (01:44→20:59)
[2022-02-12 04:39] VITALS: BP 140/91
[2022-02-12] MEDS: OSELTAMIVIR 75 MG (TAMIFLU) CAPSULE PO SCH ×2 (05:16→17:29)
[2022-02-12] MEDS: KCL 20 MEQ TAB (K-DUR) PO SCH (05:16)
[2022-02-12] MEDS: ACETAMINOPHEN 325 MG TABLET PO PRN ×3 (05:17→17:27)
[2022-02-12] MEDS: predniSONE 20 MG TAB PO SCH (05:17)
[2022-02-12] MEDS: inSUlin ASPART (NovoLOG) 1 UNIT/0.01 ML (CHARGE PER UNIT) SC SCH ×4 (05:21→20:50)
[2022-02-12 05:45] LABS: HEMATOCRIT 32 % (35-52); HEMOGLOBIN 9.5 g/dL (11.5-16.0); MEAN CORPUSCULAR HEMOGLOBIN 24 pg (25-34); MEAN CORPUSCULAR HGB CONC 30 g/dL (32-36); MEAN CORPUSCULAR VOLUME 82 fL (80-99); MEAN PLATELET VOLUME 9.9 fL (9.0-12.2); PLATELET COUNT 280 10^3/uL (130-400)
[2022-02-12 06:05] LABS: CALCIUM 8.9 MG/DL (8.5-10.1); CREATININE SERUM 0.87 MG/DL (0.60-1.30); POTASSIUM 3.1 MMOL/L (3.6-5.0)
[2022-02-12] MEDS ORDERED: KCL 20 MEQ TAB (K-DUR) PO NR (07:30)
[2022-02-12 07:58] VITALS: BP 168/100
[2022-02-12] MEDS: PROMETHAZINE 25 MG (PHENERGAN) TAB PO PRN ×3 (08:13→20:59)
[2022-02-12] MEDS: PANTOPRAZOLE 40 MG (PROTONIX) TAB PO SCH (08:53)
[2022-02-12] MEDS: DULoxetine 30 MG (CYMBALTA) CAP PO SCH (08:53)
[2022-02-12] MEDS: clonazePAM 1 MG (KlonoPIN) TAB PO SCH ×3 (08:53→20:59)
[2022-02-12] MEDS: ASPIRIN E.C. 81 MG (ECOTRIN) TAB PO SCH (08:54)
[2022-02-12] MEDS: METHENAMINE HIPP (UREX) 1 GM TABLET PO SCH ×2 (08:54→20:59)
[2022-02-12] MEDS: MIRABEGRON 25 MG TAB (MYRBETRIQ) PO SCH (08:54)
[2022-02-12] MEDS: MAGNESIUM OXIDE (MAG-OX)400 MG TAB PO SCH ×2 (08:54→20:59)
[2022-02-12] MEDS: VITAMIN D3 25 MCG (1,000 UNITS) TABLET PO SCH (08:54)
[2022-02-12] MEDS: CALCIUM CARBONATE 600 MG (CALCARB) TAB PO SCH ×2 (08:54→20:59)
[2022-02-12] MEDS: OXYBUTYNIN (DITROPAN) 5 MG TAB PO SCH ×2 (08:54→21:00)
[2022-02-12] MEDS: MULTIVIT W/MINERALS TAB (THERAGRAN M) PO SCH (08:54)
[2022-02-12] MEDS: ENOXAPARIN 40 MG/0.4 ML (LOVENOX) SYR SQ SCH ×2 (08:56→21:00)
[2022-02-12] MEDS: BUMETANIDE 1 MG (BUMEX) TAB PO SCH ×2 (09:01→12:16)
[2022-02-12] MEDS: polyethylene glycoL POWDER 17 GM (MIRALAX) PACK PO SCH (09:01)
[2022-02-12] MEDS: UMECLIDINIUM BROMIDE (INCRUSE ELLIPTA) 7'S IH SCH ×2 (09:12→15:12)
[2022-02-12] MEDS: RT--FLUTICASONE/SALMETEROL 232-14 (AIRDUO RespiCLICK) IH SCH ×2 (09:13→21:24)
--- NOTE | 2022-02-12 09:20 | Cardiology Progress Note ---
Subjective Date Seen by Provider: Feb 12, 2022 Time Seen by Provider: 08:45 Subjective/Events-last exam Patient in bed, complaining of headache. Denies any chest pain or increased dyspnea. Objective-Cardiology Exam Last Set of Vital Signs Vital Signs 02/12/22 02/12/22 02/12/22 02/12/22 11:45 12:42 13:36 15:15 Temp 36.8 Pulse 99 Resp 20 B/P (MAP) 164/91 (115) Pulse Ox 95 O2 Delivery Nasal Cannula O2 Flow Rate 5.00 FiO2 40 I&O Intake and Output 02/12/22 00:00 Intake Total 2644 ml Output Total 2400 ml Balance 244 ml Intake Oral 2644 ml Output Urine Total 2400 ml # Bowel Movements 3 General: Alert, Oriented X3, Cooperative HEENT: Atraumatic, PERRLA Lungs: Other (diminished breath sounds bibasilarly) Heart: Regular Rate, Normal S1, Normal S2 Abdomen: Normal Bowel Sounds, Soft Skin: No Rashes, No Significant Lesion Neuro: Normal Speech Psych/Mental Status: Mental Status NL, Mood NL Results Lab Laboratory Tests 02/12/22 05:20 A/P-Cardiology Admission Diagnosis Influenza A Acute respiratory failure Chest pain Acute exacerbation of COPD Assessment/Plan Influenza A, generalized weakness, fatigue. Shortness of breath and cough. Managed by medical team Acute exacerbation of COPD, acute respiratory failure, baseline oxygen dependent using 4 L nasal cannula, currently feeling better on oxygen Continue to monitor Chest pain, generalized body ache, likely cardiac, cardiac enzymes and BNP were normal. Recurrent chest pain with shortness of breath. No change from baseline Abnormal stress test on 02/04/21 showing breast attenuation with reversible ischemia involving the whole anterior wall and anterolateral wall. Normal left ventricular size, EF 51%. SSS 8, SDS 6, TID 1.08. Congestive heart failure, chronic left ventricular systolic dysfunction, nonischemic cardiomyopathy, resolved. Last echocardiogram was done in October 2021 with normal LV size, ejection fraction 55 to 60%, PA pressure 30 to 35 mmHg, trivial aortic regurgitation. Unable to tolerate ROSITA-I or ARB d/t hx of renal failure. Coronary artery disease, history of cardiac catheterization done in March 2014 and September 2017 showing [id number] coronary artery disease nonobstructive disease. Repeat cardiac catheterization done in March 2021 showing dilated coronary system with mild ectasia in the LAD, nonobstructive disease. Severe COPD, oxygen dependent, status post respiratory failure in March and August 2018, has been followed by Dr. Ayala Acute exacerbation on this admission, managed by medical team Persistent migraine headache on multiple drugs, history of methamphetamine use managed by primary care physician Syncope, reporting improvement. No further episodes were reported. Continue to monitor at this time. No changes are recommended. Complete heart block with bradycardia, transient due to beta blockers and calcium channel blockers treatment, no further syncopal episodes were reported. Continue to monitor. History of sinus tachycardia, better at this time. Continue to monitor Hypertension, elevated this morning. Unable to tolerate ROSITA-I or ARB d/t history of renal failure, unable to tolerate higher dose of beta blockers or CCB d/t hx of transient CHB on higher doses. Hx of renal failure, kidney function back to baseline, continue to monitor COPD, status post respiratory failure, oxygen dependent, previously followed by Dr. Trivedi. I will refer to Dr. Pina Obesity, BMI is 43. We discussed weight loss. History of anxiety, depression. History of diabetes mellitus, followed and managed by primary care physician. History of noncompliance with medication. Multiple addictions mainly prescription medications. Currently doing well. Ex Tobaccoism, encouraged to continue with smoking cessation History of methamphetamine use Mild carotid stenosis, nonobstructive disease by ultrasound in April 2021. Supervisory-Addendum Brief Supervisory Addendum Participated in pt care: history, MDM, physical Personally performed: exam, history, MDM Care discussed with: DAVID Results interpretation: Verified all documentation Notes: Patient was seen and evaluated with Jocelyn, examination performed, management plan was discussed, agree with the current scribed note, I made few changes to the note using Italic font Patient was seen at bedside, having nausea and loss of appetite. Dry heaves Cardiac status is stable at this time, patient is having elevated blood pressure, adding hydralazine Monitor blood pressure JOCELYN HEAD Feb 12, 2022 09:20 FRANCESCO GOULD MD Feb 12, 2022 16:25
[2022-02-12 11:45] VITALS: BP 164/91
[2022-02-12 12:42] VITALS: BP 164/91
[2022-02-12] MEDS ORDERED: RT-ALBUTEROL SULF 2.5 MG/3 ML PRE-MIX VIAL INH PRN (13:00)
[2022-02-12] MEDS: RT-ALBUTEROL SULF 2.5 MG/3 ML PRE-MIX VIAL INH SCH ×3 (15:12→21:24)
[2022-02-12 16:00] VITALS: BP 159/89
--- NOTE | 2022-02-12 17:49 | Progress Note ---
Subjective Subjective/Events-last exam Afebrile. Having body aches and nausea. On home oxygen level. Objective Exam Last Set of Vital Signs Vital Signs Date Time Temp Pulse Resp B/P (MAP) Pulse Ox O2 Delivery O2 Flow Rate FiO2 02/12/22 16:00 36.8 111 18 159/89 (112) 92 Nasal Cannula 5.00 02/12/22 12:42 40 Capillary Refill : Less Than 3 Seconds I&O Intake and Output0 02/12/22 00:00 Intake Total 2644 ml Output Total 2400 ml Balance 244 ml Intake Oral 2644 ml Output Urine Total 2400 ml # Bowel Movements 3 General: Other (resting, awakens and answers questions) Lungs: Other (ronchi and wheezing throughout) Heart: Regular Rate Extremities: No Edema Psych/Mental Status: Mood NL Results/Procedures Lab Laboratory Tests 02/11/22 21:12: Glucometer 208H 02/12/22 05:20: Glucometer 139H, White Blood Count 15.0H, Red Blood Count 3.90, Hemoglobin 9.5L, Hematocrit 32L, Mean Corpuscular Volume 82, Mean Corpuscular Hemoglobin 24L, Mean Corpuscular Hemoglobin Concent 30L, Red Cell Distribution Width 15.2H, Platelet Count 280, Mean Platelet Volume 9.9, Sodium Level 138, Potassium Level 3.1L, Chloride Level 86L, Carbon Dioxide Level 37H, Anion Gap 15H, Blood Urea Nitrogen 8, Creatinine 0.87, Estimat Glomerular Filtration Rate 78, BUN/Creatinine Ratio 9, Glucose Level 150H, Calcium Level 8.9, Magnesium Level 1.4L 02/12/22 10:27: Glucometer 160H 02/12/22 16:39: Glucometer 173H Radiology 02/10/22 CXR: IMPRESSION: Cardiomegaly and some central pulmonary venous congestion. Assessment/Plan Assessment/Plan (1) Influenza A Status: Acute Assessment & Plan: Oseltamivir ordered. (2) Acute on chronic respiratory failure Status: Acute Assessment & Plan: Secondary to Influenza A, COPD exacerbation and possibly CHF exacerbation. Supplemental oxygen as needed. Qualifiers: Qualified Codes: J96.21 - Acute and chronic respiratory failure with hypoxia (3) Chronic generalized pain Status: Chronic Assessment & Plan: Resume home medications (4) Obesity Status: Chronic Qualifiers: (5) Type 2 diabetes mellitus with complication Status: Chronic Assessment & Plan: Hold home insulin and diabetic meds. Sliding scale insulin and diabetic diet. (6) CHF (congestive heart failure) Status: Chronic (7) CHF exacerbation Status: Acute Assessment & Plan: Started on IV lasix 80 mg BID initially, Cardiology consulted, appreciate recommendations. BNP normal, no edema, on home supplemental oxygen, will resume home diuretics. Qualifiers: Qualified Codes: I50.23 - Acute on chronic systolic (congestive) heart failure (8) Anemia Status: Chronic Permanent Comment: Ferritin high, TIBC and iron normal 2020, consistent with anemia of chronic disease Last Edited By: Jaison Martinez on Feb 11, 2022 20:26 Qualifiers: Qualified Codes: D63.8 - Anemia in other chronic diseases classified elsewhere (9) Hypomagnesemia Status: Acute Assessment & Plan: Replace and monitor. (10) Primary hypertension Status: Chronic Assessment & Plan: Resume home meds. (11) Hyponatremia Status: Resolved Assessment & Plan: Improving, possibly hypervolemic hyponatremia. Monitor with continued diuresis. (12) Coronary artery disease without angina pectoris Assessment & Plan: Resume home meds. (13) Mixed hyperlipidemia Assessment & Plan: Resume home rosuvastatin. (14) Chronic headaches Status: Chronic (15) Anxiety Status: Chronic (16) COPD (chronic obstructive pulmonary disease) Status: Acute Assessment & Plan: On chronic low dose prednisone. Will increase to 60 mg daily due to acute wheezing with influenza. Qualifiers: Qualified Codes: J44.1 - Chronic obstructive pulmonary disease with (acute) exacerbation (17) DVT prophylaxis Status: Acute Assessment & Plan: Enoxaparin JAISON MARTINEZ MD Feb 12, 2022 17:49
[2022-02-12] MEDS: MAGNESIUM 1 GM/100 ML IVPB 100 ML IV SCH ×2 (19:30→20:59)
[2022-02-12 20:00] VITALS: BP 155/87
[2022-02-12] MEDS: ROSUVASTATIN 20 MG (CRESTOR) TABLET PO SCH (20:59)
[2022-02-12] MEDS: OLANZapine 2.5 MG (ZyPREXA) TAB PO SCH (21:06)
[2022-02-12] MEDS ORDERED: methylPREDNISolone 125 MG (Solu-MEDROL) VIAL ONE (23:36)
[2022-02-12] MEDS ORDERED: clonazePAM 0.5 MG (KlonoPIN) TAB ONE (23:36)
[2022-02-12] MEDS ORDERED: methylPREDNISolone 125 MG (Solu-MEDROL) VIAL IVP ONE (23:45)
[2022-02-12] MEDS ORDERED: clonazePAM 0.5 MG (KlonoPIN) TAB PO ONE (23:45)
[2022-02-13] VITALS (8 sets, daily range): BP systolic 132–190; BP diastolic 75–95
[2022-02-13] MEDS: LOPERAMIDE 2 MG (IMODIUM) TABLET PO PRN ×2 (01:50→22:48)
[2022-02-13] MEDS: RT-ALBUTEROL SULF 2.5 MG/3 ML PRE-MIX VIAL INH SCH ×6 (02:34→22:16)
[2022-02-13] MEDS: predniSONE 20 MG TAB PO SCH (05:54)
[2022-02-13] MEDS: OSELTAMIVIR 75 MG (TAMIFLU) CAPSULE PO SCH ×2 (05:54→16:48)
[2022-02-13] MEDS: KCL 20 MEQ TAB (K-DUR) PO SCH (05:54)
[2022-02-13] MEDS: PANTOPRAZOLE 40 MG (PROTONIX) TAB PO SCH (05:54)
[2022-02-13 06:24] LABS: HEMATOCRIT 31 % (35-52); HEMOGLOBIN 9.2 g/dL (11.5-16.0); MEAN CORPUSCULAR HEMOGLOBIN 25 pg (25-34); MEAN CORPUSCULAR HGB CONC 30 g/dL (32-36); MEAN CORPUSCULAR VOLUME 83 fL (80-99); MEAN PLATELET VOLUME 10.3 fL (9.0-12.2); PLATELET COUNT 288 10^3/uL (130-400); WHITE BLOOD COUNT 13.2 10^3/uL (4.3-11.0)
[2022-02-13] MEDS: inSUlin ASPART (NovoLOG) 1 UNIT/0.01 ML (CHARGE PER UNIT) SC SCH ×4 (06:25→20:00)
[2022-02-13 06:53] LABS: POTASSIUM 3.3 MMOL/L (3.6-5.0)
[2022-02-13 06:54] LABS: CALCIUM 9.1 MG/DL (8.5-10.1)
[2022-02-13 06:58] LABS: CREATININE SERUM 1.01 MG/DL (0.60-1.30)
[2022-02-13 07:00] LABS: MAGNESIUM 1.9 MG/DL (1.6-2.4)
[2022-02-13] MEDS ORDERED: KCL 20 MEQ TAB (K-DUR) PO NR (07:30)
[2022-02-13] MEDS: UMECLIDINIUM BROMIDE (INCRUSE ELLIPTA) 7'S IH SCH (07:49)
[2022-02-13] MEDS: RT--FLUTICASONE/SALMETEROL 232-14 (AIRDUO RespiCLICK) IH SCH ×2 (07:49→22:15)
--- NOTE | 2022-02-13 08:20 | Cardiology Progress Note ---
Subjective Date Seen by Provider: Feb 13, 2022 Time Seen by Provider: 08:18 Subjective/Events-last exam Patient sitting up in bed, appears more short of breath this morning. Denies any chest pain. Objective-Cardiology Exam Last Set of Vital Signs Vital Signs 02/13/22 02/13/22 07:40 07:55 Temp 35.9 Pulse 98 Resp 18 B/P (MAP) 141/95 (110) Pulse Ox 92 O2 Delivery Vapotherm O2 Flow Rate 35.00 FiO2 40 I&O l Intake and Output 02/13/22 00:00 Intake Total 3855 ml Output Total 4100 ml Balance -245 ml Intake Oral 3755 ml IV Total 100 ml Output Urine Total 3200 ml Urine/Stool Mix 900 ml # Voids 1 # Bowel Movements 3 General: Other (resting, awakens and answers questions) HEENT: Atraumatic, PERRLA Lungs: Other (ronchi and wheezing throughout) Heart: Regular Rate Abdomen: Normal Bowel Sounds, Soft Extremities: No Edema Skin: No Rashes, No Significant Lesion Neuro: Normal Speech Psych/Mental Status: Mood NL Results Lab Laboratory Tests 02/13/22 06:05 A/P-Cardiology Admission Diagnosis Influenza A Acute respiratory failure Chest pain Acute exacerbation of COPD Assessment/Plan Influenza A, generalized weakness, fatigue. Shortness of breath and cough. Managed by medical team Acute exacerbation of COPD, acute respiratory failure, baseline oxygen dependent using 4 L nasal cannula, appears to be more short of breath this morning. I will evaluate CXR Chest pain, generalized body ache, likely cardiac, cardiac enzymes and BNP were normal. Recurrent chest pain with shortness of breath. No change from baseline Abnormal stress test on 02/04/21 showing breast attenuation with reversible ischemia involving the whole anterior wall and anterolateral wall. Normal left ventricular size, EF 51%. SSS 8, SDS 6, TID 1.08. Congestive heart failure, chronic left ventricular systolic dysfunction, nonischemic cardiomyopathy, resolved. Last echocardiogram was done in October 2021 with normal LV size, ejection fraction 55 to 60%, PA pressure 30 to 35 mmHg, trivial aortic regurgitation. Unable to tolerate ROSITA-I or ARB d/t hx of renal failure. Coronary artery disease, history of cardiac catheterization done in March 2014 and September 2017 showing [id number] coronary artery disease nonobstructive disease. Repeat cardiac catheterization done in March 2021 showing dilated coronary system with mild ectasia in the LAD, nonobstructive disease. Severe COPD, oxygen dependent, status post respiratory failure in March and August 2018, has been followed by Dr. Ayala Acute exacerbation on this admission, managed by medical team Persistent migraine headache on multiple drugs, history of methamphetamine use managed by primary care physician Syncope, reporting improvement. No further episodes were reported. Continue to monitor at this time. No changes are recommended. Complete heart block with bradycardia, transient due to beta blockers and calcium channel blockers treatment, no further syncopal episodes were reported. Continue to monitor. History of sinus tachycardia, better at this time. Continue to monitor Hypertension, Unable to tolerate ROSITA-I or ARB d/t history of renal failure, unable to tolerate higher dose of beta blockers or CCB d/t hx of transient CHB on higher doses. Maintained on Coreg 3.125mg BID, hydralazine 10mg TID started o n 02/12/22 Hx of renal failure, kidney function back to baseline, continue to monitor COPD, status post respiratory failure, oxygen dependent, previously followed by Dr. Trivedi. I will refer to Dr. Pina Obesity, BMI is 43. We discussed weight loss. History of anxiety, depression. History of diabetes mellitus, followed and managed by primary care physician. History of noncompliance with medication. Multiple addictions mainly prescription medications. Currently doing well. Ex Tobaccoism, encouraged to continue with smoking cessation History of methamphetamine use Mild carotid stenosis, nonobstructive disease by ultrasound in April 2021. Supervisory-Addendum Brief Supervisory Addendum Participated in pt care: history, MDM, physical Personally performed: exam, history, MDM Care discussed with: DAVID Results interpretation: Verified all documentation Notes: Patient was seen and evaluated with Jocelyn, examination performed, management plan was discussed, agree with the current scribed note, I made few changes to the note using Italic font Patient was seen at bedside, having worsening dyspnea Sitting comfortably Maintained on Vapotherm Has influenza A, planning to repeat chest x-ray Continue to monitor heart rate and blood pressure Overall blood pressure is better today. JOCELYN HEAD Feb 13, 2022 08:20 FRANCESCO GOULD MD Feb 13, 2022 08:37
[2022-02-13] MEDS: POTASSIUM CL 10MEQ/50ML IVPB 50 ML IV SCH (08:46)
[2022-02-13] MEDS: toPIRamate 25 MG (TOPAMAX) TAB PO SCH ×2 (08:46→21:34)
[2022-02-13] MEDS: CALCIUM CARBONATE 600 MG (CALCARB) TAB PO SCH ×2 (08:46→21:34)
[2022-02-13] MEDS: MAGNESIUM OXIDE (MAG-OX)400 MG TAB PO SCH ×2 (08:46→21:33)
[2022-02-13] MEDS: METHENAMINE HIPP (UREX) 1 GM TABLET PO SCH ×2 (08:46→21:34)
[2022-02-13] MEDS: ASPIRIN E.C. 81 MG (ECOTRIN) TAB PO SCH (08:46)
[2022-02-13] MEDS: MULTIVIT W/MINERALS TAB (THERAGRAN M) PO SCH (08:46)
[2022-02-13] MEDS: VITAMIN D3 25 MCG (1,000 UNITS) TABLET PO SCH (08:46)
[2022-02-13] MEDS: OXYBUTYNIN (DITROPAN) 5 MG TAB PO SCH ×2 (08:47→21:33)
[2022-02-13] MEDS: ENOXAPARIN 40 MG/0.4 ML (LOVENOX) SYR SQ SCH ×2 (08:47→21:34)
[2022-02-13] MEDS: polyethylene glycoL POWDER 17 GM (MIRALAX) PACK PO SCH (08:47)
[2022-02-13] MEDS: DULoxetine 30 MG (CYMBALTA) CAP PO SCH (08:47)
[2022-02-13] MEDS: clonazePAM 1 MG (KlonoPIN) TAB PO SCH ×3 (08:58→21:34)
[2022-02-13] MEDS: MIRABEGRON 25 MG TAB (MYRBETRIQ) PO SCH (08:58)
[2022-02-13] MEDS: BUMETANIDE 1 MG (BUMEX) TAB PO SCH ×2 (09:00→12:04)
[2022-02-13] MEDS: PROMETHAZINE 25 MG (PHENERGAN) TAB PO PRN ×2 (11:51→16:48)
--- NOTE | 2022-02-13 12:25 | Progress Note ---
Subjective Subjective/Events-last exam Pt had an episode of increased work of breathing last night, switched to vapotherm, given IV solumedrol and an extra dose of clonazepam. Is sleeping easily this morning, awakens to voice and says she feels okay. Objective Exam Last Set of Vital Signs Vital Signs Date Time Temp Pulse Resp B/P (MAP) Pulse Ox O2 Delivery O2 Flow Rate FiO2 02/13/22 11:40 92 30.00 40 02/13/22 11:35 Vapotherm 02/13/22 11:00 36.5 95 22 190/90 (123) Capillary Refill : Less Than 3 Seconds I&O Intake and Output 02/13/22 00:00 Intake Total 3855 ml Output Total 4100 ml Balance -245 ml Intake Oral 3755 ml IV Total 100 ml Output Urine Total 3200 ml Urine/Stool Mix 900 ml # Voids 1 # Bowel Movements 3 General: Alert, No Acute Distress Lungs: Other (diffuse wheezing) Heart: Other (tachycardic) Extremities: Other (pitting edema right lower leg) Psych/Mental Status: Mood NL Results/Procedures Lab Laboratory Tests 02/12/22 16:39: Glucometer 173H 02/12/22 20:48: Glucometer 121H 02/13/22 06:03: Glucometer 235H 02/13/22 06:05: White Blood Count 13.2H, Red Blood Count 3.74L, Hemoglobin 9.2L, Hematocrit 31L, Mean Corpuscular Volume 83, Mean Corpuscular Hemoglobin 25, Mean Corpuscular Hemoglobin Concent 30L, Red Cell Distribution Width 15.4H, Platelet Count 288, Mean Platelet Volume 10.3, Sodium Level 138, Potassium Level 3.3L, Chloride Level 86L, Carbon Dioxide Level 41H, Anion Gap 11, Blood Urea Nitrogen 10, Creatinine 1.01, Estimat Glomerular Filtration Rate 65, BUN/Creatinine Ratio 10, Glucose Level 235H, Calcium Level 9.1, Magnesium Level 1.9 02/13/22 10:55: Glucometer 210H Radiology 02/10/22 CXR: IMPRESSION: Cardiomegaly and some central pulmonary venous congestion. Assessment/Plan Assessment/Plan (1) Influenza A Status: Acute Assessment & Plan: Oseltamivir ordered. (2) Acute on chronic respiratory failure Status: Acute Assessment & Plan: Secondary to Influenza A, COPD exacerbation and possibly CHF exacerbation. Supplemental oxygen as needed. Qualifiers: Qualified Codes: J96.21 - Acute and chronic respiratory failure with hypoxia (3) Chronic generalized pain Status: Chronic Assessment & Plan: Resume home medications (4) Obesity Status: Chronic Qualifiers: (5) Type 2 diabetes mellitus with complication Status: Chronic Assessment & Plan: Hold home insulin and diabetic meds. Sliding scale insulin and diabetic diet. (6) CHF (congestive heart failure) Status: Chronic (7) CHF exacerbation Status: Acute Assessment & Plan: Started on IV lasix 80 mg BID initially, Cardiology consulted, appreciate recommendations. BNP normal, no edema, on home supplemental oxygen, will resume home diuretics. Qualifiers: Qualified Codes: I50.23 - Acute on chronic systolic (congestive) heart failure (8) Anemia Status: Chronic Permanent Comment: Ferritin high, TIBC and iron normal 2020, consistent with anemia of chronic disease Last Edited By: Jaison Martinez on Feb 11, 2022 20:26 Qualifiers: Qualified Codes: D63.8 - Anemia in other chronic diseases classified e lsewhere (9) Hypomagnesemia Status: Acute Assessment & Plan: Replace and monitor. (10) Primary hypertension Status: Chronic Assessment & Plan: Resume home meds. (11) Hyponatremia Status: Resolved Assessment & Plan: Improving, possibly hypervolemic hyponatremia. Monitor with continued diuresis. (12) Coronary artery disease without angina pectoris Assessment & Plan: Resume home meds. (13) Mixed hyperlipidemia Assessment & Plan: Resume home rosuvastatin. (14) Chronic headaches Status: Chronic (15) Anxiety Status: Chronic (16) COPD (chronic obstructive pulmonary disease) Status: Acute Assessment & Plan: On chronic low dose prednisone. Will increase to 60 mg daily due to acute wheezing with influenza. Qualifiers: Qualified Codes: J44.1 - Chronic obstructive pulmonary disease with (acute) exacerbation (17) DVT prophylaxis Status: Acute Assessment & Plan: Enoxaparin JAISON MARTINEZ MD Feb 13, 2022 12:25
--- NOTE | 2022-02-13 12:25 | Diagnostic Imaging Report ---
Indication: Shortness of breath. Comparison with 02/10/2022. FINDINGS: Cardiomegaly is again noted. There continues to be rather dense consolidated infiltrate in the left lung base. There is a new infiltrate now in the right lung base. The upper lungs show mild prominence pulmonary vasculature. Probable left basilar pleural effusion now. IMPRESSION: 1. Findings suggesting increasing consolidated infiltrates in the lung bases bilaterally. Probable left basilar effusion as well. 2. Cardiomegaly with some pulmonary venous congestion again noted. Dictated by: Dictated on workstation # [id number]
[2022-02-13] MEDS: CEFEPIME 1,000 MG/NS 50 ML IVPB IV SCH ×4 (16:48→21:34)
[2022-02-13] MEDS ORDERED: CEFEPIME INJECTION 2,000 MG in NS (IVPB) 50 ML IV SCH (21:00)
[2022-02-13] MEDS: ROSUVASTATIN 20 MG (CRESTOR) TABLET PO SCH (21:33)
[2022-02-13] MEDS: OLANZapine 2.5 MG (ZyPREXA) TAB PO SCH (21:33)
[2022-02-14] MEDS: RT-ALBUTEROL SULF 2.5 MG/3 ML PRE-MIX VIAL INH SCH ×6 (02:30→21:19)
[2022-02-14 03:09] VITALS: BP 122/74
[2022-02-14] MEDS: ACETAMINOPHEN 325 MG TABLET PO PRN ×2 (04:04→20:48)
[2022-02-14] MEDS: predniSONE 20 MG TAB PO SCH (06:47)
[2022-02-14] MEDS: inSUlin ASPART (NovoLOG) 1 UNIT/0.01 ML (CHARGE PER UNIT) SC SCH ×4 (06:47→20:50)
[2022-02-14] MEDS: PANTOPRAZOLE 40 MG (PROTONIX) TAB PO SCH (06:47)
[2022-02-14] MEDS: KCL 20 MEQ TAB (K-DUR) PO SCH (06:48)
[2022-02-14] MEDS: OSELTAMIVIR 75 MG (TAMIFLU) CAPSULE PO SCH ×2 (06:48→16:24)
[2022-02-14] MEDS ORDERED: CEFDINIR 300 MG (OMNICEF) CAP PO SCH (07:00)
[2022-02-14 07:05] VITALS: BP 155/95
[2022-02-14] MEDS: CEFDINIR 300 MG (OMNICEF) CAP PO SCH ×2 (07:20→20:48)
[2022-02-14 07:29] LABS: HEMATOCRIT 35 % (35-52); MEAN CORPUSCULAR HEMOGLOBIN 25 pg (25-34); MEAN CORPUSCULAR HGB CONC 29 g/dL (32-36); MEAN CORPUSCULAR VOLUME 86 fL (80-99); MEAN PLATELET VOLUME 9.8 fL (9.0-12.2); PLATELET COUNT 382 10^3/uL (130-400); WHITE BLOOD COUNT 13.5 10^3/uL (4.3-11.0)
[2022-02-14 08:01] LABS: CALCIUM 9.9 MG/DL (8.5-10.1); CREATININE SERUM 1.23 MG/DL (0.60-1.30); POTASSIUM 3.7 MMOL/L (3.6-5.0)
[2022-02-14] MEDS: toPIRamate 25 MG (TOPAMAX) TAB PO SCH ×2 (08:55→20:48)
[2022-02-14] MEDS: clonazePAM 1 MG (KlonoPIN) TAB PO SCH ×3 (08:55→20:49)
[2022-02-14] MEDS: MULTIVIT W/MINERALS TAB (THERAGRAN M) PO SCH (08:56)
[2022-02-14] MEDS: DULoxetine 30 MG (CYMBALTA) CAP PO SCH (08:56)
[2022-02-14] MEDS: CALCIUM CARBONATE 600 MG (CALCARB) TAB PO SCH ×2 (08:56→20:48)
[2022-02-14] MEDS: METHENAMINE HIPP (UREX) 1 GM TABLET PO SCH ×2 (08:56→20:49)
[2022-02-14] MEDS: ASPIRIN E.C. 81 MG (ECOTRIN) TAB PO SCH (08:56)
[2022-02-14] MEDS: MAGNESIUM OXIDE (MAG-OX)400 MG TAB PO SCH ×2 (08:56→20:48)
[2022-02-14] MEDS: VITAMIN D3 25 MCG (1,000 UNITS) TABLET PO SCH (08:56)
[2022-02-14] MEDS: MIRABEGRON 25 MG TAB (MYRBETRIQ) PO SCH (08:56)
[2022-02-14] MEDS: ENOXAPARIN 40 MG/0.4 ML (LOVENOX) SYR SQ SCH ×2 (08:57→21:00)
[2022-02-14] MEDS: OXYBUTYNIN (DITROPAN) 5 MG TAB PO SCH ×2 (08:57→21:00)
[2022-02-14] MEDS: polyethylene glycoL POWDER 17 GM (MIRALAX) PACK PO SCH (08:59)
[2022-02-14] MEDS: UMECLIDINIUM BROMIDE (INCRUSE ELLIPTA) 7'S IH SCH ×2 (08:59→09:33)
[2022-02-14] MEDS: BUMETANIDE 1 MG (BUMEX) TAB PO SCH ×2 (09:05→12:17)
[2022-02-14] MEDS: RT--FLUTICASONE/SALMETEROL 232-14 (AIRDUO RespiCLICK) IH SCH ×3 (09:33→21:18)
[2022-02-14 11:20] VITALS: BP 169/100
[2022-02-14 15:39] VITALS: BP 137/75
--- NOTE | 2022-02-14 16:16 | Progress Note ---
Subjective Subjective/Events-last exam Pt sleeping this morning when I saw her. Woke easily and stated she is feeling okay. Asked her about taking out her IV and she says it was the night before last. Per nursing she removed her IV last night and said it was because she was tired of the beeping. Objective Exam Last Set of Vital Signs Vital Signs Date Time Temp Pulse Resp B/P (MAP) Pulse Ox O2 Delivery O2 Flow Rate FiO2 02/14/22 15:39 36.1 105 20 137/75 (95) 92 Vapotherm 40.00 20.00 02/14/22 15:03 40 Capillary Refill : Less Than 3 Seconds I&O Intake and Output 02/14/22 00:00 Intake Total 2240 ml Output Total 4900 ml Balance -2660 ml Intake Oral 2140 ml IV Total 100 ml Output Urine Total 4900 ml # Bowel Movements 4 General: No Acute Distress Lungs: Other (ronchi, wheezing throughout) Heart: Regular Rate Neuro: Normal Speech Psych/Mental Status: Mood NL Results/Procedures Lab Laboratory Tests 02/13/22 19:42: Glucometer 131H 02/14/22 06:06: Glucometer 170H 02/14/22 07:15: White Blood Count 13.5H, Red Blood Count 4.07, Hemoglobin 10.0L, Hematocrit 35, Mean Corpuscular Volume 86, Mean Corpuscular Hemoglobin 25, Mean Corpuscular Hemoglobin Concent 29L, Red Cell Distribution Width 15.6H, Platelet Count 382, Mean Platelet Volume 9.8, Sodium Level 143, Potassium Level 3.7, Chloride Level 91L, Carbon Dioxide Level 36H, Anion Gap 16H, Blood Urea Nitrogen 15, Creatinine 1.23, Estimat Glomerular Filtration Rate 51, BUN/Creatinine Ratio 12, Glucose Level 156H, Calcium Level 9.9 02/14/22 11:22: Glucometer 251H 02/14/22 15:39: Glucometer 174H Microbiology 02/13/22 MRSA Screen - Final, Complete Radiology 02/10/22 CXR: IMPRESSION: Cardiomegaly and some central pulmonary venous congestion. Assessment/Plan Assessment/Plan (1) Influenza A Status: Acute Assessment & Plan: Oseltamivir ordered. 02/13 had some worsening and repeat CXR concerning for developing infiltrate, started cefepime. MRSA nasal swab ordered to eval for MRSA carriage and possible MRSA risk. 02/14- change to cefdinir due to not tolerating IV access. (2) Acute on chronic respiratory failure Status: Acute Assessment & Plan: Secondary to Influenza A, COPD exacerbation and possibly CHF exacerbation. Supplemental oxygen as needed. Qualifiers: Qualified Codes: J96.21 - Acute and chronic respiratory failure with hypoxia (3) Chronic generalized pain Status: Chronic Assessment & Plan: Resume home medications (4) Obesity Status: Chronic Qualifiers: (5) Type 2 diabetes mellitus with complication Status: Chronic Assessment & Plan: Hold home insulin and diabetic meds. Sliding scale insulin a nd diabetic diet. (6) CHF (congestive heart failure) Status: Chronic (7) CHF exacerbation Status: Acute Assessment & Plan: Started on IV lasix 80 mg BID initially, Cardiology consulted, appreciate recommendations. BNP normal, no edema, on home supplemental oxygen, will resume home diuretics. Qualifiers: Qualified Codes: I50.23 - Acute on chronic systolic (congestive) heart failure (8) Anemia Status: Chronic Permanent Comment: Ferritin high, TIBC and iron normal 2020, consistent with anemia of chronic disease Last Edited By: Jaison Martinez on Feb 11, 2022 20:26 Qualifiers: Qualified Codes: D63.8 - Anemia in other chronic diseases classified elsewhere (9) Hypomagnesemia Status: Acute Assessment & Plan: Replace and monitor. (10) Primary hypertension Status: Chronic Assessment & Plan: Resume home meds. (11) Hyponatremia Status: Resolved Assessment & Plan: Improving, possibly hypervolemic hyponatremia. Monitor with continued diuresis. (12) Coronary artery disease without angina pectoris Assessment & Plan: Resume home meds. (13) Mixed hyperlipidemia Assessment & Plan: Resume home rosuvastatin. (14) Chronic headaches Status: Chronic (15) Anxiety Status: Chronic (16) COPD (chronic obstructive pulmonary disease) Status: Acute Assessment & Plan: On chronic low dose prednisone. Will increase to 60 mg daily due to acute wheezing with influenza. Qualifiers: Qualified Codes: J44.1 - Chronic obstructive pulmonary disease with (acute) exacerbation (17) DVT prophylaxis Status: Acute Assessment & Plan: Enoxaparin JAISON MARTINEZ MD Feb 14, 2022 16:16
--- NOTE | 2022-02-14 17:34 | Cardiology Progress Note ---
Progress Note-Cardiology Events since last exam Date Seen by Provider: Feb 14, 2022 Time Seen by Provider: 17:29 Events since last exam We are following her due to heart failure among other cardiac issues. She st ates her breathing is improved but not completely resolved. Her peripheral edema has resolved. She denies chest discomfort, palpitations, or syncope. Certain portions of this document may have been dictated utilizing voice recognition technology. Inherent to this technology, typographical and gr ammatical errors may exist. As much as I am diligent to identify and correct these mistakes, some errors may remain in the document. Vitals Last set of Vitals Signs Vital Signs 02/14/22 02/14/22 15:03 15:39 Temp 36.1 Pulse 105 Resp 20 B/P (MAP) 137/75 (95) Pulse Ox 92 O2 Delivery Vapotherm O2 Flow Rate 40.00 20.00 FiO2 40 Labs Labs Laboratory Tests 02/14/22 07:15 Exam Vital Signs Vital Signs Date Time Temp Pulse Resp B/P (MAP) Pulse Ox O2 Delivery O2 Flow Rate FiO2 02/14/22 15:39 36.1 105 20 137/75 (95) 92 Vapotherm 40.00 20.00 02/14/22 15:03 40 Physical Exam General: Alert. No acute distress. She is wearing oxygen by Vapotherm. She is morbidly obese. Eye: No xanthelasma. HENT: Normocephalic. Neck: Jugular venous pressure does not appear elevated. Respiratory: Lungs have decreased breath sounds at the bases bilaterally with some scattered wheezes.. Respirations are non-labored. Breath sounds are equal. Symmetrical chest wall expansion. Cardiovascular: Normal rate. Regular rhythm. Distant S1/S2. No murmur. No gallop. No edema. Gastrointestinal: Soft. Normal bowel sounds. Skin: Warm. Dry. Neurologic: Alert and oriented to person, place, time. Cranial nerves 3-11 grossly intact. Psychiatric: Cooperative. Appropriate mood & affect. Labs Laboratory Tests Test 02/13/22 19:42 02/14/22 06:06 02/14/22 07:15 02/14/22 11:22 Range/Units Glucometer 131 H 170 H 251 H 70-110 MG/DL White Blood Count 13.5 H 4.3-11.0 10^3/uL Red Blood Count 4.07 3.80-5.11 10^6/uL Hemoglobin 10.0 L 11.5-16.0 g/dL Hematocrit 35 35-52 % Mean Corpuscular Volume 86 80-99 fL Mean Corpuscular Hemoglobin 25 25-34 pg Mean Corpuscular Hemoglobin Concent 29 L 32-36 g/dL Red Cell Distribution Width 15.6 H 10.0-14.5 % Platelet Count 382 130-400 10^3/uL Mean Platelet Volume 9.8 9.0-12.2 fL Sodium Level 143 135-145 MMOL/L Potassium Level 3.7 3.6-5.0 MMOL/L Chloride Level 91 L 98-107 MMOL/L Carbon Dioxide Level 36 H 21-32 MMOL/L Anion Gap 16 H 5-14 MMOL/L Blood Urea Nitrogen 15 7-18 MG/DL Creatinine 1.23 0.60-1.30 MG/DL Estimat Glomerular Filtration Rate 51 BUN/Creatinine Ratio 12 Glucose Level 156 H 70-105 MG/DL Calcium Level 9.9 8.5-10.1 MG/DL Test 02/14/22 15:39 Range/Units Glucometer 174 H 70-110 MG/DL Diagnosis/Problems Diagnosis/Problems (1) Chronic diastolic heart failure Assessment & Plan: She is back on her home dose of diuretic. (2) Coronary artery disease without angina pectoris Assessment & Plan: She has a history of coronary artery disease but has not required revascularization in the past. She is not having any typical angina at this time. Continue aspirin, beta-nacho and statin medication. (3) Primary hypertension Status: Chronic Assessment & Plan: Continue carvedilol and hydralazine. (4) Mixed hyperlipidemia Assessment & Plan: Continue rosuvastatin. (5) Acute on chronic respiratory failure with hypoxemia Assessment & Plan: This is most likely noncardiac due to her influenza infection as well as an exacerbation of her chronic obstructive pulmonary disease. (6) Electronic cigarette use Assessment & Plan: She needs to stop using electronic cigarettes. She has been counseled in this regard. (7) Morbid obesity Assessment & Plan: She needs to work on weight loss. She has been counseled in this regard on numerous times in the past. THOMAS SUAZO JR, MD Feb 14, 2022 17:34
[2022-02-14] MEDS: PROMETHAZINE 25 MG (PHENERGAN) TAB PO PRN (18:47)
[2022-02-14 20:03] VITALS: BP 128/82
[2022-02-14] MEDS: OLANZapine 2.5 MG (ZyPREXA) TAB PO SCH (20:49)
[2022-02-14] MEDS: ROSUVASTATIN 20 MG (CRESTOR) TABLET PO SCH (21:00)
[2022-02-14 23:30] VITALS: BP 118/70
[2022-02-15] MEDS: RT-ALBUTEROL SULF 2.5 MG/3 ML PRE-MIX VIAL INH SCH ×6 (02:35→21:55)
[2022-02-15 03:11] VITALS: BP 95/45
[2022-02-15 05:59] LABS: BASOPHILS % (AUTO) 0 % (0-10); EOSINOPHILS # (AUTO) 0.1 10^3/uL (0.0-0.3); EOSINOPHILS % (AUTO) 1 % (0-10); HEMATOCRIT 32 % (35-52); HEMOGLOBIN 9.3 g/dL (11.5-16.0); LYMPHOCYTES % (AUTO) 22 % (12-44); MEAN CORPUSCULAR HEMOGLOBIN 24 pg (25-34); MEAN CORPUSCULAR HGB CONC 29 g/dL (32-36); MEAN CORPUSCULAR VOLUME 84 fL (80-99); MEAN PLATELET VOLUME 9.8 fL (9.0-12.2); MONOCYTES # (AUTO) 0.9 10^3/uL (0.0-1.0); MONOCYTES % (AUTO) 10 % (0-12); NEUTROPHILS # (AUTO) 5.9 10^3/uL (1.8-7.8); NEUTROPHILS % (AUTO) 65 % (42-75); PLATELET COUNT 399 10^3/uL (130-400); WHITE BLOOD COUNT 9.1 10^3/uL (4.3-11.0)
[2022-02-15 06:26] LABS: ALBUMIN 3.3 GM/DL (3.2-4.5); BILIRUBIN,TOTAL 0.3 MG/DL (0.1-1.0); CALCIUM 9.2 MG/DL (8.5-10.1); CREATININE SERUM 1.16 MG/DL (0.60-1.30); POTASSIUM 2.9 MMOL/L (3.6-5.0); TOTAL PROTEIN 6.4 GM/DL (6.4-8.2)
--- NOTE | 2022-02-15 06:36 | Progress Note - Hospitalist ---
Subjective HPI/CC On Admission Date Seen by Provider: Feb 15, 2022 Time Seen by Provider: 11:30 Subjective/Events-last exam Patient continues to be stable Needs to go back to [facility] Takes off her Vapotherm and O2 sats are 70% Sleeps most of the time Objective Exam Vital Signs Vital Signs Date Time Temp Pulse Resp B/P (MAP) Pulse Ox O2 Delivery O2 Flow Rate FiO2 02/15/22 13:00 104 02/15/22 11:05 36.8 18 134/72 (92) 91 Vapotherm 50.00 30.00 02/15/22 10:46 50 Capillary Refill : Less Than 3 Seconds General Appearance: No Apparent Distress, WD/WN, Chronically ill, Obese Respiratory: Decreased Breath Sounds Cardiovascular: Regular Rate, Rhythm Results/Procedures Lab Laboratory Tests 02/15/22 05:50 Patient resulted labs reviewed. Assessment/Plan Assessment and Plan Assess & Plan/Chief Complaint (1) Influenza A Status: Acute Assessment & Plan: Oseltamivir ordered. 02/13 had some worsening and repeat CXR concerning for developing infiltrate, started cefepime. MRSA nasal swab ordered to eval for MRSA carriage and possible MRSA risk. 02/14- change to cefdinir due to not tolerating IV access. (2) Acute on chronic respiratory failure Status: Acute Assessment & Plan: Secondary to Influenza A, COPD exacerbation and possibly CHF exacerbation. Supplemental oxygen as needed. Qualifiers: Qualified Codes: J96.21 - Acute and chronic respiratory failure with hypoxia (3) Chronic generalized pain Status: Chronic Assessment & Plan: Resume home medications (4) Obesity Status: Chronic Qualifiers: (5) Type 2 diabetes mellitus with complication Status: Chronic Assessment & Plan: Hold home insulin and diabetic meds. Sliding scale insulin and diabetic diet. (6) CHF (congestive heart failure) Status: Chronic (7) CHF exacerbation Status: Acute Assessment & Plan: Started on IV lasix 80 mg BID initially, Cardiology consulted, appreciate recommendations. BNP normal, no edema, on home supplemental oxygen, will resume home diuretics. Qualifiers: Qualified Codes: I50.23 - Acute on chronic systolic (congestive) heart failure (8) Anemia Status: Chronic Permanent Comment: Ferritin high, TIBC and iron normal 2020, consistent with anemia of chronic disease Last Edited By: Norah Martinez on Feb 11, 2022 20:26 Qualifiers: Qualified Codes: D63.8 - Anemia in other chronic diseases classified elsewhere (9) Hypomagnesemia Status: Acute Assessment & Plan: Replace and monitor. (10) Primary hypertension Status: Chronic Assessment & Plan: Resume home meds. (11) Hyponatremia Status: Resolved Assessment & Plan: Improving, possibly hypervolemic hyponatremia. Monitor with continued diuresis. (12) Coronary artery disease without angina pectoris Assessment & Plan: Resume home meds. (13) Mixed hyperlipidemia Assessment & Plan: Resume home rosuvastatin. (14) Chronic headaches Status: Chronic (15) Anxiety Status: Chronic (16) COPD (chronic obstructive pulmonary disease) Status: Acute Assessment & Plan: On chronic low dose prednisone. Will increase to 60 mg daily due to acute wheezing with influenza. Qualifiers: Qualified Codes: J44.1 - Chronic obstructive pulmonary disease with (acute) exacerbation (17) DVT prophylaxis Status: Acute Assessment & Plan: Enoxaparin RODY ALDANA DO Feb 15, 2022 06:36
[2022-02-15] MEDS: inSUlin ASPART (NovoLOG) 1 UNIT/0.01 ML (CHARGE PER UNIT) SC SCH ×4 (07:05→22:54)
[2022-02-15] MEDS: UMECLIDINIUM BROMIDE (INCRUSE ELLIPTA) 7'S IH SCH (07:22)
[2022-02-15 08:00] VITALS: BP 140/71
[2022-02-15] MEDS: predniSONE 20 MG TAB PO SCH (08:05)
[2022-02-15] MEDS: MIRABEGRON 25 MG TAB (MYRBETRIQ) PO SCH (08:05)
[2022-02-15] MEDS: KCL 20 MEQ TAB (K-DUR) PO SCH ×3 (08:05→22:54)
[2022-02-15] MEDS: OSELTAMIVIR 75 MG (TAMIFLU) CAPSULE PO SCH (08:06)
[2022-02-15] MEDS: PANTOPRAZOLE 40 MG (PROTONIX) TAB PO SCH (08:06)
[2022-02-15] MEDS: ENOXAPARIN 40 MG/0.4 ML (LOVENOX) SYR SQ SCH ×2 (08:40→22:48)
[2022-02-15] MEDS: clonazePAM 1 MG (KlonoPIN) TAB PO SCH ×3 (08:40→22:50)
[2022-02-15] MEDS: METHENAMINE HIPP (UREX) 1 GM TABLET PO SCH ×2 (08:40→22:49)
[2022-02-15] MEDS: OXYBUTYNIN (DITROPAN) 5 MG TAB PO SCH ×2 (08:40→22:50)
[2022-02-15] MEDS: MULTIVIT W/MINERALS TAB (THERAGRAN M) PO SCH (08:40)
[2022-02-15] MEDS: VITAMIN D3 25 MCG (1,000 UNITS) TABLET PO SCH (08:40)
[2022-02-15] MEDS: CALCIUM CARBONATE 600 MG (CALCARB) TAB PO SCH ×2 (08:40→22:49)
[2022-02-15] MEDS: CEFDINIR 300 MG (OMNICEF) CAP PO SCH ×2 (08:40→22:51)
[2022-02-15] MEDS: MAGNESIUM OXIDE (MAG-OX)400 MG TAB PO SCH ×2 (08:40→22:51)
[2022-02-15] MEDS: toPIRamate 25 MG (TOPAMAX) TAB PO SCH ×2 (08:41→22:50)
[2022-02-15] MEDS: DULoxetine 30 MG (CYMBALTA) CAP PO SCH (08:41)
[2022-02-15] MEDS: ASPIRIN E.C. 81 MG (ECOTRIN) TAB PO SCH (08:41)
[2022-02-15] MEDS: BUMETANIDE 1 MG (BUMEX) TAB PO SCH ×2 (08:45→12:59)
[2022-02-15] MEDS: polyethylene glycoL POWDER 17 GM (MIRALAX) PACK PO SCH (08:52)
[2022-02-15 11:05] VITALS: BP 134/72
[2022-02-15 15:55] VITALS: BP 134/72
--- NOTE | 2022-02-15 16:28 | Cardiology Progress Note ---
Progress Note-Cardiology Events since last exam Date Seen by Provider: Feb 15, 2022 Time Seen by Provider: 16:24 Events since last exam We are following her due to heart failure. She states that her breathing is improving but she is still on oxygen by Vapotherm. She denies chest discomfort, patient's, syncope, or ankle edema. She seems to have no interest in quitting using electronic cigarettes. Certain portions of this document may have been dictated utilizing voice recognition technology. Inherent to this technology, typographical and grammatical errors may exist. As much as I am diligent to identify and correct these mistakes, some errors may remain in the document. Vitals Last set of Vitals Signs Vital Signs 02/15/22 02/15/22 02/15/22 11:05 15:35 15:55 Temp 36.8 Pulse 108 Resp 18 B/P (MAP) 134/72 (92) Pulse Ox 94 O2 Delivery Vapotherm O2 Flow Rate 25.00 FiO2 50 Labs Labs Laboratory Tests 02/15/22 05:50 Exam Vital Signs Vital Signs Date Time Temp Pulse Resp B/P (MAP) Pulse Ox O2 Delivery O2 Flow Rate FiO2 02/15/22 15:55 36.8 108 94 50 02/15/22 15:35 Vapotherm 25.00 02/15/22 11:05 18 134/72 (92) Physical Exam General: Alert. No acute distress. She is morbidly obese. She is on oxygen by Vapotherm. Eye: No xanthelasma. HENT: Normocephalic. Neck: Jugular venous pressure does not appear elevated. Respiratory: Lungs have diffusely decreased breath sounds with some scattered wheezes. Respirations are non-labored. Breath sounds are equal. Symmetrical chest wall expansion. Cardiovascular: Normal rate. Regular rhythm. Distant S1/S2. No murmur. No gallop. No edema. Gastrointestinal: Soft. Normal bowel sounds. Skin: Warm. Dry. Neurologic: Alert and oriented to person, place, time. Cranial nerves 3-11 grossly intact. Psychiatric: Cooperative. Appropriate mood & affect. Labs Laboratory Tests Test 02/14/22 18:51 02/14/22 20:00 02/15/22 05:29 02/15/22 05:50 Range/Units Glucometer 176 H 171 H 159 H 70-110 MG/DL White Blood Count 9.1 4.3-11.0 10^3/uL Red Blood Count 3.83 3.80-5.11 10^6/uL Hemoglobin 9.3 L 11.5-16.0 g/dL Hematocrit 32 L 35-52 % Mean Corpuscular Volume 84 80-99 fL Mean Corpuscular Hemoglobin 24 L 25-34 pg Mean Corpuscular Hemoglobin Concent 29 L 32-36 g/dL Red Cell Distribution Width 15.6 H 10.0-14.5 % Platelet Count 399 130-400 10^3/uL Mean Platelet Volume 9.8 9.0-12.2 fL Immature Granulocyte % (Auto) 2 % Neutrophils (%) (Auto) 65 42-75 % Lymphocytes (%) (Auto) 22 12-44 % Monocytes (%) (Auto) 10 0-12 % Eosinophils (%) (Auto) 1 0-10 % Basophils (%) (Auto) 0 0-10 % Neutrophils # (Auto) 5.9 1.8-7.8 10^3/uL Lymphocytes # (Auto) 2.0 1.0-4.0 10^3/uL Monocytes # (Auto) 0.9 0.0-1.0 10^3/uL Eosinophils # (Auto) 0.1 0.0-0.3 10^3/uL Basophils # (Auto) 0.0 0.0-0.1 10^3/uL Immature Granulocyte # (Auto) 0.2 H 0.0-0.1 10^3/uL Sodium Level 141 135-145 MMOL/L Potassium Level 2.9 L 3.6-5.0 MMOL/L Chloride Level 89 L 98-107 MMOL/L Carbon Dioxide Level 40 H 21-32 MMOL/L Anion Gap 12 5-14 MMOL/L Blood Urea Nitrogen 16 7-18 MG/DL Creatinine 1.16 0.60-1.30 MG/DL Estimat Glomerular Filtration Rate 55 BUN/Creatinine Ratio 14 Glucose Level 157 H 70-105 MG/DL Calcium Level 9.2 8.5-10.1 MG/DL Corrected Calcium 9.8 8.5-10.1 MG/DL Total Bilirubin 0.3 0.1-1.0 MG/DL Aspartate Amino Transf (AST/SGOT) 19 5-34 U/L Alanine Aminotransferase (ALT/SGPT) 27 0-55 U/L Alkaline Phosphatase 68 40-136 U/L Total Protein 6.4 6.4-8.2 GM/DL Albumin 3.3 3.2-4.5 GM/DL Test 02/15/22 16:20 Range/Units Glucometer 204 H 70-110 MG/DL Diagnosis/Problems Diagnosis/Problems (1) Chronic diastolic heart failure Assessment & Plan: She is back on her home dose of diuretic. I will get a follow-up chest x-ray tomorrow. (2) Coronary artery disease without angina pectoris Assessment & Plan: She has a history of coronary artery disease but has not required revascularization in the past. She is not having any typical angina at this time. Continue aspirin, beta-nacho and statin medication. (3) Primary hypertension Status: Chronic Assessment & Plan: Blood pressure has been reasonably controlled with the current doses of carvedilol and hydralazine. (4) Mixed hyperlipidemia Assessment & Plan: Continue rosuvastatin. (5) Acute on chronic respiratory failure with hypoxemia Assessment & Plan: This is most likely noncardiac due to her influenza infection as well as an exacerbation of her chronic obstructive pulmonary disease. (6) Electronic cigarette use Assessment & Plan: She needs to stop using electronic cigarettes. She has been counseled in this regard. (7) Morbid obesity Assessment & Plan: She needs to work on weight loss. She has been counseled in this regard on numerous times in the past. THOMAS SUAZO JR, MD Feb 15, 2022 16:28
[2022-02-15 16:30] VITALS: BP 110/67
[2022-02-15] MEDS: PROMETHAZINE 25 MG (PHENERGAN) TAB PO PRN (17:30)
[2022-02-15 21:00] VITALS: BP 120/63
[2022-02-15] MEDS: ROSUVASTATIN 20 MG (CRESTOR) TABLET PO SCH (22:49)
[2022-02-15] MEDS: OLANZapine 2.5 MG (ZyPREXA) TAB PO SCH (22:49)
[2022-02-15] MEDS: RT--FLUTICASONE/SALMETEROL 232-14 (AIRDUO RespiCLICK) IH SCH (22:52)
[2022-02-16] VITALS (7 sets, daily range): BP systolic 107–176; BP diastolic 60–80
[2022-02-16] MEDS: RT-ALBUTEROL SULF 2.5 MG/3 ML PRE-MIX VIAL INH SCH ×6 (02:33→22:45)
--- NOTE | 2022-02-16 06:20 | Progress Note - Hospitalist ---
Subjective HPI/CC On Admission Date Seen by Provider: Feb 16, 2022 Time Seen by Provider: 11:00 Subjective/Events-last exam Sleeping Sleeps most of the time NHP tomorrow 8L/min O2 now Review of Systems General: Fatigue, Malaise Pulmonary: Dyspnea Objective Exam Vital Signs Vital Signs Date Time Temp Pulse Resp B/P (MAP) Pulse Ox O2 Delivery O2 Flow Rate FiO2 02/16/22 15:22 96 High Flow N/C 8.00 02/16/22 12:51 100 02/16/22 11:50 36.5 18 176/80 (112) 02/16/22 02:26 45 Capillary Refill : Less Than 3 Seconds General Appearance: No Apparent Distress, WD/WN, Chronically ill, Obese Respiratory: Lungs Clear Cardiovascular: Regular Rate, Rhythm Results/Procedures Lab Laboratory Tests 02/16/22 06:00 Patient resulted labs reviewed. Assessment/Plan Assessment and Plan Assess & Plan/Chief Complaint (1) Influenza A Status: Acute Assessment & Plan: Oseltamivir ordered. 02/13 had some worsening and repeat CXR concerning for developing infiltrate, st arted cefepime. MRSA nasal swab ordered to eval for MRSA carriage and possible MRSA risk. 02/14- change to cefdinir due to not tolerating IV access. (2) Acute on chronic respiratory failure Status: Acute Assessment & Plan: Secondary to Influenza A, COPD exacerbation and possibly CHF exacerbation. Supplemental oxygen as needed. Qualifiers: Qualified Codes: J96.21 - Acute and chronic respiratory failure with hypoxia (3) Chronic generalized pain Status: Chronic Assessment & Plan: Resume home medications (4) Obesity Status: Chronic Qualifiers: (5) Type 2 diabetes mellitus with complication Status: Chronic Assessment & Plan: Hold home insulin and diabetic meds. Sliding scale insulin and diabetic diet. (6) CHF (congestive heart failure) Status: Chronic (7) CHF exacerbation Status: Acute Assessment & Plan: Started on IV lasix 80 mg BID initially, Cardiology consulted, appreciate recommendations. BNP normal, no edema, on home supplemental oxygen, will resume home diuretics. Qualifiers: Qualified Codes: I50.23 - Acute on chronic systolic (congestive) heart failure (8) Anemia Status: Chronic Permanent Comment: Ferritin high, TIBC and iron normal 2020, consistent with anemia of chronic disease Last Edited By: Norah Martinez on Feb 11, 2022 20:26 Qualifiers: Qualified Codes: D63.8 - Anemia in other chronic diseases classified elsewhere (9) Hypomagnesemia Status: Acute Assessment & Plan: Replace and monitor. (10) Primary hypertension Status: Chronic Assessment & Plan: Resume home meds. (11) Hyponatremia Status: Resolved Assessment & Plan: Improving, possibly hypervolemic hyponatremia. Monitor with continued diuresis. (12) Coronary artery disease without angina pectoris Assessment & Plan: Resume home meds. (13) Mixed hyperlipidemia Assessment & Plan: Resume home rosuvastatin. (14) Chronic headaches Status: Chronic (15) Anxiety Status: Chronic (16) COPD (chronic obstructive pulmonary disease) Status: Acute Assessment & Plan: On chronic low dose prednisone. Will increase to 60 mg daily due to acute wheezing with influenza. Qualifiers: Qualified Codes: J44.1 - Chronic obstructive pulmonary disease with (acute) exacerbation (17) DVT prophylaxis Status: Acute Assessment & Plan: Enoxaparin RODY ALDANA DO Feb 16, 2022 06:20
[2022-02-16 06:33] LABS: BASOPHILS % (AUTO) 0 % (0-10); EOSINOPHILS # (AUTO) 0.1 10^3/uL (0.0-0.3); EOSINOPHILS % (AUTO) 1 % (0-10); HEMATOCRIT 33 % (35-52); HEMOGLOBIN 9.5 g/dL (11.5-16.0); LYMPHOCYTES # (AUTO) 2.6 10^3/uL (1.0-4.0); LYMPHOCYTES % (AUTO) 29 % (12-44); MEAN CORPUSCULAR HEMOGLOBIN 24 pg (25-34); MEAN CORPUSCULAR HGB CONC 29 g/dL (32-36); MEAN CORPUSCULAR VOLUME 83 fL (80-99); MONOCYTES % (AUTO) 12 % (0-12); NEUTROPHILS # (AUTO) 4.7 10^3/uL (1.8-7.8); NEUTROPHILS % (AUTO) 53 % (42-75); PLATELET COUNT 386 10^3/uL (130-400); WHITE BLOOD COUNT 8.9 10^3/uL (4.3-11.0)
[2022-02-16 06:54] LABS: ALBUMIN 3.4 GM/DL (3.2-4.5); BILIRUBIN,TOTAL 0.3 MG/DL (0.1-1.0); CALCIUM 9.8 MG/DL (8.5-10.1); CREATININE SERUM 1.31 MG/DL (0.60-1.30); POTASSIUM 3.2 MMOL/L (3.6-5.0); TOTAL PROTEIN 6.6 GM/DL (6.4-8.2)
[2022-02-16] MEDS: predniSONE 20 MG TAB PO SCH (07:34)
[2022-02-16] MEDS: PANTOPRAZOLE 40 MG (PROTONIX) TAB PO SCH (07:34)
[2022-02-16] MEDS: UMECLIDINIUM BROMIDE (INCRUSE ELLIPTA) 7'S IH SCH ×2 (07:35→07:51)
[2022-02-16] MEDS: RT--FLUTICASONE/SALMETEROL 232-14 (AIRDUO RespiCLICK) IH SCH ×2 (07:39→23:48)
[2022-02-16] MEDS: inSUlin ASPART (NovoLOG) 1 UNIT/0.01 ML (CHARGE PER UNIT) SC SCH ×4 (07:39→23:55)
--- NOTE | 2022-02-16 08:58 | Diagnostic Imaging Report ---
EXAMINATION: Chest, 2 views. HISTORY: Shortness of breath. COMPARISON: 02/13/2022. FINDINGS: There is improved aeration in the lung bases. No significant pleural effusion is seen. No pneumothorax. Stable cardiac silhouette. IMPRESSION: Improved aeration in the lung bases favored to represent improving pulmonary edema. No pleural effusion. Dictated by: Dictated on workstation # [id number]
[2022-02-16] MEDS: DULoxetine 30 MG (CYMBALTA) CAP PO SCH (09:28)
[2022-02-16] MEDS: OXYBUTYNIN (DITROPAN) 5 MG TAB PO SCH ×2 (09:28→23:31)
[2022-02-16] MEDS: CEFDINIR 300 MG (OMNICEF) CAP PO SCH ×2 (09:28→23:30)
[2022-02-16] MEDS: MAGNESIUM OXIDE (MAG-OX)400 MG TAB PO SCH ×2 (09:28→23:31)
[2022-02-16] MEDS: METHENAMINE HIPP (UREX) 1 GM TABLET PO SCH ×2 (09:28→23:30)
[2022-02-16] MEDS: MULTIVIT W/MINERALS TAB (THERAGRAN M) PO SCH (09:28)
[2022-02-16] MEDS: clonazePAM 1 MG (KlonoPIN) TAB PO SCH ×3 (09:29→23:51)
[2022-02-16] MEDS: CALCIUM CARBONATE 600 MG (CALCARB) TAB PO SCH ×2 (09:29→23:30)
[2022-02-16] MEDS: VITAMIN D3 25 MCG (1,000 UNITS) TABLET PO SCH (09:29)
[2022-02-16] MEDS: polyethylene glycoL POWDER 17 GM (MIRALAX) PACK PO SCH (09:29)
[2022-02-16] MEDS: MIRABEGRON 25 MG TAB (MYRBETRIQ) PO SCH (09:29)
[2022-02-16] MEDS: ASPIRIN E.C. 81 MG (ECOTRIN) TAB PO SCH (09:29)
[2022-02-16] MEDS: toPIRamate 25 MG (TOPAMAX) TAB PO SCH ×2 (09:29→23:30)
[2022-02-16] MEDS: KCL 20 MEQ TAB (K-DUR) PO SCH ×3 (09:29→23:30)
[2022-02-16] MEDS: ENOXAPARIN 40 MG/0.4 ML (LOVENOX) SYR SQ SCH ×2 (09:30→23:30)
[2022-02-16] MEDS: BUMETANIDE 1 MG (BUMEX) TAB PO SCH ×2 (09:33→11:35)
--- NOTE | 2022-02-16 11:25 | Cardiology Progress Note ---
Progress Note-Cardiology Events since last exam Date Seen by Provider: Feb 16, 2022 Time Seen by Provider: 11:22 Events since last exam We are following her due to heart failure. She feels as though her breathing continues to improve. She has been converted from Vapotherm over to nasal cannula oxygen. She denies chest discomfort, palpitations, or syncope. She has minimal bilateral ankle edema. Certain portions of this document may have been dictated utilizing voice recognition technology. Inherent to this technology, typographical and grammatical errors may exist. As much as I am diligent to identify and correct these mistakes, some errors may remain in the document. Vitals Last set of Vitals Signs Vital Signs 02/16/22 02:26 FiO2 45 Labs Labs Laboratory Tests 02/16/22 06:00 Exam Vital Signs Vital Signs Date Time Temp Pulse Resp B/P (MAP) Pulse Ox O2 Delivery O2 Flow Rate FiO2 02/16/22 07:55 36.6 94 20 119/62 (81) 95 Nasal Cannula 9.00 02/16/22 02:26 45 Physical Exam General: Alert. No acute distress. She is morbidly obese. She is on oxygen by nasal cannula. Eye: No xanthelasma. HENT: Normocephalic. Neck: Jugular venous pressure does not appear elevated. Respiratory: Lungs are clear to auscultation but decreased at the bases bilaterally. Respirations are non-labored. Breath sounds are equal. Symmetrical chest wall expansion. Cardiovascular: Normal rate. Regular rhythm. Distant S1/S2. No murmur. No gallop. Trace bilateral pretibial edema. Gastrointestinal: Soft. Normal bowel sounds. Skin: Warm. Dry. Neurologic: Alert and oriented to person, place, time. Cranial nerves 3-11 grossly intact. Psychiatric: Cooperative. Appropriate mood & affect. Labs Laboratory Tests Test 02/15/22 16:20 02/15/22 19:49 02/16/22 06:00 02/16/22 06:07 Range/Units Glucometer 204 H 183 H 155 H 70-110 MG/DL White Blood Count 8.9 4.3-11.0 10^3/uL Red Blood Count 3.99 3.80-5.11 10^6/uL Hemoglobin 9.5 L 11.5-16.0 g/dL Hematocrit 33 L 35-52 % Mean Corpuscular Volume 83 80-99 fL Mean Corpuscular Hemoglobin 24 L 25-34 pg Mean Corpuscular Hemoglobin Concent 29 L 32-36 g/dL Red Cell Distribution Width 15.5 H 10.0-14.5 % Platelet Count 386 130-400 10^3/uL Mean Platelet Volume 10.0 9.0-12.2 fL Immature Granulocyte % (Auto) 5 % Neutrophils (%) (Auto) 53 42-75 % Lymphocytes (%) (Auto) 29 12-44 % Monocytes (%) (Auto) 12 0-12 % Eosinophils (%) (Auto) 1 0-10 % Basophils (%) (Auto) 0 0-10 % Neutrophils # (Auto) 4.7 1.8-7.8 10^3/uL Lymphocytes # (Auto) 2.6 1.0-4.0 10^3/uL Monocytes # (Auto) 1.0 0.0-1.0 10^3/uL Eosinophils # (Auto) 0.1 0.0-0.3 10^3/uL Basophils # (Auto) 0.0 0.0-0.1 10^3/uL Immature Granulocyte # (Auto) 0.4 H 0.0-0.1 10^3/uL Sodium Level 141 135-145 MMOL/L Potassium Level 3.2 L 3.6-5.0 MMOL/L Chloride Level 90 L 98-107 MMOL/L Carbon Dioxide Level 37 H 21-32 MMOL/L Anion Gap 14 5-14 MMOL/L Blood Urea Nitrogen 18 7-18 MG/DL Creatinine 1.31 H 0.60-1.30 MG/DL Estimat Glomerular Filtration Rate 47 BUN/Creatinine Ratio 14 Glucose Level 158 H 70-105 MG/DL Calcium Level 9.8 8.5-10.1 MG/DL Corrected Calcium 10.3 H 8.5-10.1 MG/DL Total Bilirubin 0.3 0.1-1.0 MG/DL Aspartate Amino Transf (AST/SGOT) 22 5-34 U/L Alanine Aminotransferase (ALT/SGPT) 28 0-55 U/L Alkaline Phosphatase 67 40-136 U/L Total Protein 6.6 6.4-8.2 GM/DL Albumin 3.4 3.2-4.5 GM/DL Test 02/16/22 10:44 Range/Units Glucometer 321 H 70-110 MG/DL Diagnosis/Problems Diagnosis/Problems (1) Chronic diastolic heart failure Assessment & Plan: She is back on her home dose of bumetanide. Her chest x-ray from this morning, 02/16, is improved. (2) Coronary artery disease without angina pectoris Assessment & Plan: She has a history of coronary artery disease but has not required revascularization in the past. She is not having any typical angina at this time. Continue aspirin, beta-nacho and statin medication. (3) Primary hypertension Status: Chronic Assessment & Plan: Blood pressure has been reasonably controlled with the current doses of carvedilol and hydralazine. (4) Mixed hyperlipidemia Assessment & Plan: Continue rosuvastatin. (5) Acute on chronic respiratory failure with hypoxemia Assessment & Plan: This is most likely noncardiac due to her influenza infection as well as an exacerbation of her chronic obstructive pulmonary disease. (6) Electronic cigarette use Assessment & Plan: She needs to stop using electronic cigarettes. She has been counseled in this regard. (7) Morbid obesity Assessment & Plan: She needs to work on weight loss. She has been counseled in this regard on numerous times in the past. THOMAS SUAZO JR, MD Feb 16, 2022 11:25
[2022-02-16] MEDS: ACETAMINOPHEN 325 MG TABLET PO PRN ×2 (11:35→23:31)
[2022-02-16] MEDS: PROMETHAZINE 25 MG (PHENERGAN) TAB PO PRN ×2 (23:31→23:49)
[2022-02-16] MEDS: OLANZapine 2.5 MG (ZyPREXA) TAB PO SCH (23:49)
[2022-02-16] MEDS: ROSUVASTATIN 20 MG (CRESTOR) TABLET PO SCH (23:50)
[2022-02-17] VITALS: BP 134/79
[2022-02-17] MEDS: RT-ALBUTEROL SULF 2.5 MG/3 ML PRE-MIX VIAL INH SCH ×3 (02:58→10:42)
[2022-02-17 03:24] VITALS: BP 131/83
[2022-02-17 05:54] LABS: BASOPHILS % (AUTO) 0 % (0-10); EOSINOPHILS # (AUTO) 0.1 10^3/uL (0.0-0.3); EOSINOPHILS % (AUTO) 1 % (0-10); HEMATOCRIT 32 % (35-52); HEMOGLOBIN 9.3 g/dL (11.5-16.0); LYMPHOCYTES # (AUTO) 2.7 10^3/uL (1.0-4.0); LYMPHOCYTES % (AUTO) 27 % (12-44); MEAN CORPUSCULAR HEMOGLOBIN 24 pg (25-34); MEAN CORPUSCULAR HGB CONC 29 g/dL (32-36); MEAN CORPUSCULAR VOLUME 84 fL (80-99); MEAN PLATELET VOLUME 10.1 fL (9.0-12.2); MONOCYTES # (AUTO) 1.1 10^3/uL (0.0-1.0); MONOCYTES % (AUTO) 11 % (0-12); NEUTROPHILS # (AUTO) 5.4 10^3/uL (1.8-7.8); NEUTROPHILS % (AUTO) 54 % (42-75); PLATELET COUNT 412 10^3/uL (130-400)
[2022-02-17 06:21] LABS: ALBUMIN 3.4 GM/DL (3.2-4.5); BILIRUBIN,TOTAL 0.3 MG/DL (0.1-1.0); CREATININE SERUM 1.57 MG/DL (0.60-1.30); POTASSIUM 3.5 MMOL/L (3.6-5.0); TOTAL PROTEIN 6.4 GM/DL (6.4-8.2)
[2022-02-17] MEDS: predniSONE 20 MG TAB PO SCH (07:00)
[2022-02-17] MEDS: PANTOPRAZOLE 40 MG (PROTONIX) TAB PO SCH (07:00)
[2022-02-17] MEDS: UMECLIDINIUM BROMIDE (INCRUSE ELLIPTA) 7'S IH SCH (07:12)
[2022-02-17] MEDS: RT--FLUTICASONE/SALMETEROL 232-14 (AIRDUO RespiCLICK) IH SCH (07:13)
[2022-02-17 07:23] VITALS: BP 134/81
[2022-02-17] MEDS: inSUlin ASPART (NovoLOG) 1 UNIT/0.01 ML (CHARGE PER UNIT) SC SCH ×2 (08:44→10:56)
[2022-02-17] MEDS: MAGNESIUM OXIDE (MAG-OX)400 MG TAB PO SCH (08:50)
[2022-02-17] MEDS: ENOXAPARIN 40 MG/0.4 ML (LOVENOX) SYR SQ SCH (08:50)
[2022-02-17] MEDS: OXYBUTYNIN (DITROPAN) 5 MG TAB PO SCH (08:50)
[2022-02-17] MEDS: DULoxetine 30 MG (CYMBALTA) CAP PO SCH (08:51)
[2022-02-17] MEDS: MULTIVIT W/MINERALS TAB (THERAGRAN M) PO SCH (08:51)
[2022-02-17] MEDS: KCL 20 MEQ TAB (K-DUR) PO SCH ×2 (08:51→12:27)
[2022-02-17] MEDS: METHENAMINE HIPP (UREX) 1 GM TABLET PO SCH (08:51)
[2022-02-17] MEDS: MIRABEGRON 25 MG TAB (MYRBETRIQ) PO SCH (08:51)
[2022-02-17] MEDS: ASPIRIN E.C. 81 MG (ECOTRIN) TAB PO SCH (08:51)
[2022-02-17] MEDS: CALCIUM CARBONATE 600 MG (CALCARB) TAB PO SCH (08:51)
[2022-02-17] MEDS: VITAMIN D3 25 MCG (1,000 UNITS) TABLET PO SCH (08:51)
[2022-02-17] MEDS: BUMETANIDE 1 MG (BUMEX) TAB PO SCH ×2 (08:51→12:27)
[2022-02-17] MEDS: clonazePAM 1 MG (KlonoPIN) TAB PO SCH ×2 (08:51→12:27)
[2022-02-17] MEDS: CEFDINIR 300 MG (OMNICEF) CAP PO SCH (08:51)
[2022-02-17] MEDS: toPIRamate 25 MG (TOPAMAX) TAB PO SCH (08:52)
[2022-02-17] MEDS: polyethylene glycoL POWDER 17 GM (MIRALAX) PACK PO SCH (08:52)
--- NOTE | 2022-02-17 09:11 | Cardiology Progress Note ---
Subjective Date Seen by Provider: Feb 17, 2022 Time Seen by Provider: 08:20 Subjective/Events-last exam Patient sitting up in bed, no new complaints, reports improvement of dyspnea. Review of Systems General: No Chills, No Night Sweats; Fatigue HEENT: No Head Aches, No Visual Changes, No Eye Pain, No Ear Pain, No Dysphasia, No Sinus Congestion, No Post Nasal Drip, No Sore Throat, No Other Pulmonary: Dyspnea, Cough Cardiovascular: Edema; No: Chest Pain, Palpitations Gastrointestinal: No: Nausea Neurological: Weakness; No: Numbness Objective-Cardiology Exam Last Set of Vital Signs Vital Signs 02/16/22 02/17/22 02/17/22 02:26 07:23 09:00 Temp 36.0 Pulse 97 Resp 22 B/P (MAP) 134/81 (98) Pulse Ox 97 O2 Delivery High Flow N/C O2 Flow Rate 8.00 FiO2 45 I&O Intake and Output 02/17/22 00:00 Intake Total 1600 ml Output Total 1500 ml Balance 100 ml Intake Oral 1600 ml Output Urine Total 1500 ml # Bowel Movements 1 General: No Acute Distress HEENT: Atraumatic, PERRLA Neck: Supple Lungs: Normal Air Movement, Other ( wheezing throughout) Heart: Regular Rate, Normal S1, Normal S2 Abdomen: Normal Bowel Sounds, Soft Extremities: Other (pitting edema right lower leg) Skin: No Rashes, No Significant Lesion Neuro: Normal Speech Psych/Mental Status: Mood NL Results Lab Laboratory Tests 02/17/22 05:14 A/P-Cardiology Admission Diagnosis Influenza A Acute respiratory failure Chest pain Acute exacerbation of COPD Assessment/Plan Influenza A, generalized weakness, fatigue. Shortness of breath and cough. Patient is reporting improvement in her symptoms, feeling better, requesting to go home. Acute exacerbation of COPD, acute respiratory failure, baseline oxygen dependent using 4 L nasal cannula, improving Chest pain, generalized body ache, likely cardiac, cardiac enzymes and BNP were normal. Reporting improvement. No active chest pain was reported. Congestive heart failure, chronic left ventricular systolic dysfunction, nonischemic cardiomyopathy, resolved. Last echocardiogram was done in October 2021 with normal LV size, ejection fr action 55 to 60%, PA pressure 30 to 35 mmHg, trivial aortic regurgitation. Unable to tolerate ROSITA-I or ARB d/t hx of renal failure. Started back on Bumex Coronary artery disease, history of cardiac catheterization done in March 2014 and September 2017 showing [id number] coronary artery disease nonobstructive disease. Repeat cardiac catheterization done in March 2021 showing dilated coronary system with mild ectasia in the LAD, nonobstructive disease. Stress test on 02/04/21 showing breast attenuation with reversible ischemia involving the whole anterior wall and anterolateral wall. Normal left ventricular size, EF 51%. SSS 8, SDS 6, TID 1.08. Severe COPD, oxygen dependent, status post respiratory failure in March and August 2018, has been followed by Dr. Ayala Acute exacerbation on this admission, managed by medical team Persistent migraine headache on multiple drugs, history of methamphetamine use managed by primary care physician Syncope, reporting improvement. No further episodes were reported. Continue to monitor at this time. No changes are recommended. Complete heart block with bradycardia, transient due to beta blockers and calcium channel blockers treatment, no further syncopal episodes were reported. Continue to monitor. History of sinus tachycardia, better at this time. Continue to monitor Hypertension, Unable to tolerate ROSITA-I or ARB d/t history of renal failure, unable to tolerate higher dose of beta blockers or CCB d/t hx of transient CHB on higher doses. Maintained on Coreg 3.125mg BID, hydralazine 10mg TID started on 02/12/22 Hx of renal failure, kidney function back to baseline, continue to monitor COPD, status post respiratory failure, oxygen dependent, previously followed by Dr. Trivedi. I will refer to Dr. Pina Obesity, BMI is 43. We discussed weight loss. History of anxiety, depression. History of diabetes mellitus, followed and managed by primary care physician. History of noncompliance with medication. Multiple addictions mainly prescription medications. Currently doing well. Ex Tobaccoism, encouraged to continue with smoking cessation History of methamphetamine use Mild carotid stenosis, nonobstructive disease by ultrasound in April 2021. Supervisory-Addendum Brief Supervisory Addendum Participated in pt care: history, MDM, physical Personally performed: exam, history, MDM Care discussed with: DAVID Results interpretation: Verified all documentation Notes: Patient was seen and evaluated with Jocelyn, examination performed, management plan was discussed, agree with the current scribed note, I made few changes to the note using Italic font Patient was seen at bedside, sitting comfortably, eating breakfast Feeling better, no further episodes of chest pain, reporting improvement in breathing, back on 4 L nasal cannula Requesting to go home Okay for discharge from cardiology standpoint and follow-up as an outpatient JOCELYN HEAD Feb 17, 2022 09:11 FRANCESCO GOULD MD Feb 17, 2022 09:42
[2022-02-17] MEDS: ACETAMINOPHEN 325 MG TABLET PO PRN (10:56)
[2022-02-17 11:01] VITALS: BP 136/77
[2022-02-17] MEDS ORDERED: PRD10T PO (11:22)
[2022-02-17] MEDS ORDERED: PRED10TA22 PO (11:22)
[2022-02-17] MEDS ORDERED: HYDR-3922 PO (11:22)
[2022-02-17] MEDS ORDERED: INSU100I14 SC (11:22)
[2022-02-17] MEDS ORDERED: CEFD300C3 PO (11:22)
--- NOTE | 2022-02-17 11:23 | Discharge Summary ---
Discharge Summary Hospital Course Was the Problem List Reviewed?: Yes Problems/Dx: (1) Chronic diastolic heart failure (2) Coronary artery disease without angina pectoris (3) Primary hypertension Status: Chronic (4) Mixed hyperlipidemia (5) Acute on chronic respiratory failure with hypoxemia (6) Electronic cigarette use (7) Morbid obesity Hospital Course Date of Admission: Feb 10, 2022 at 16:53 Admission Diagnosis : Family Physician/Provider: [place] Date of Discharge: 02/17/22 Discharge Diagnosis: [ ] Hospital Course: Lengthy hospital course after she was admitted for exacerbation of congestive heart failure along with COPD exacerbation requiring Vapotherm. Long hospital course due to severe COPD and overall severe debility. Vapotherm was ultimately transitioned to nasal cannula. Patient remained at her baseline of nearly bedridden status. Overall her prognosis remains poor due to very debilitated state and long-term status at 57 years old with continued vaping. Labs and Pending Lab Test: Laboratory Tests 02/16/22 16:51: Glucometer 270H 02/16/22 20:43: Glucometer 194H 02/17/22 05:14: White Blood Count 10.0, Red Blood Count 3.83, Hemoglobin 9.3L, Hematocrit 32L, Mean Corpuscular Volume 84, Mean Corpuscular Hemoglobin 24L, Mean Corpuscular Hemoglobin Concent 29L, Red Cell Distribution Width 15.4H, Platelet Count 412H, Mean Platelet Volume 10.1, Immature Granulocyte % (Auto) 6, Neutrophils (%) (Auto) 54, Lymphocytes (%) (Auto) 27, Monocytes (%) (Auto) 11, Eosinophils (%) (Auto) 1, Basophils (%) (Auto) 0, Neutrophils # (Auto) 5.4, Lymphocytes # (Auto) 2.7, Monocytes # (Auto) 1.1H, Eosinophils # (Auto) 0.1, Basophils # (Auto) 0.0, Immature Granulocyte # (Auto) 0.6H, Sodium Level 137, Potassium Level 3.5L, Chloride Level 89L, Carbon Dioxide Level 35H, Anion Gap 13, Blood Urea Nitrogen 24H, Creatinine 1.57H, Estimat Glomerular Filtration Rate 38, BUN/Creatinine Ratio 15, Glucose Level 233H, Calcium Level 10.0, Corrected Calcium 10.5H, Total Bilirubin 0.3, Aspartate Amino Transf (AST/SGOT) 22, Alanine Aminotransferase (ALT/SGPT) 33, Alkaline Phosphatase 71, Total Protein 6.4, Albumin 3.4 02/17/22 06:03: Glucometer 226H 02/17/22 10:12: Glucometer 274H Microbiology 02/13/22 MRSA Screen - Final, Complete Home Meds Active Prednisone 10 Mg Tab.ds.pk 10 Mg PO DAILY Take 6 tabs(60mg)daily,decrease by 1 tab(10MG)daily. Hydralazine HCl 10 Mg Tablet 10 Mg PO TID Cefdinir 300 Mg Capsule 300 Mg PO BID Novolog Flexpen (Insulin Aspart) 100 Unit/Ml (3 Ml) Solution 10 Units SC WM 7 Days IF BS STILL OVER 450 CAB GUVE ANOTHER 15 UNITS Prednisone 10 Mg Tab 10 Mg PO DAILY 7 Days hold until prednisone taper is completed then resume Reported Topiramate 50 Mg Tablet 50 Mg PO BID Saline Nasal [place]affee (Sodium Chloride) 0.65 % [place]affee 2 Sprays NSEACH Q4H PRN Promethazine HCl 12.5 Mg Tablet 12.5-25 Mg PO Q6H PRN Metformin HCl ER (Metformin HCl) 500 Mg Tab.er.24h 1,000 Mg PO BID TAKES 2 (500MG) TABS Olanzapine 7.5 Mg Tablet 7.5 Mg PO HS Myrbetriq (Mirabegron) 25 Mg Tab.er.24h 25 Mg PO DAILY Miralax (Polyethylene Glycol 3350) 17 Gram Powd.pack 17 Gm PO DAILY Magnesium Oxide 400 Mg Magnesium Tablet 400 Mg PO BID Imodium A-D (Loperamide HCl) 2 Mg Capsule 2-4 Mg PO UD PRN Duloxetine HCl 60 Mg Capsule.dr 60 Mg PO DAILY Diclofenac Sodium 1 % Gel..gram. 2 Gm TOP Q8H PRN Calcium Carbonate 600 Mg Calcium (1500 Mg) Tablet 600 Mg PO BID Vitamin D3 (Cholecalciferol (Vitamin D3)) 50 Mcg (2000 Unit) Tab.chew 50 Mcg PO DAILY Trulicity (Dulaglutide) 0.75 Mg/0.5 Ml Pen.injctr 0.75 Mg SQ MICHA Trelegy Ellipta 100-62.5-25 (Fluticasone/Umeclidin/Vilanter) 100-62.5 Blst.w.dev 1 Each IH 1200 Rizatriptan (Rizatriptan Benzoate) 10 Mg Tablet 10 Mg PO UD PRN MDD 20MG MAY REPEAT 1 DOSE IF INEFFECTIVE Methenamine Hippurate 1 Gram Tablet 1 Gm PO BID Levemir Flextouch (Insulin Detemir) 100 Unit/Ml (3 Ml) Insuln.pen 25 Unit SQ BID K-Tab ER (Potassium Chloride) 20 Meq Tablet.er 20 Meq PO DAILY Iprat-Albut 0.5-3(2.5) mg/3 ml (Ipratropium/Albuterol Sulfate) 0.5 Mg-3 Mg (2.5 Mg Base)/3 Ml Ampul.neb 3 Ml IH Q4 -6H PRN Clonazepam 1 Mg Tablet 1 Mg PO TID Oxybutynin Chloride 5 Mg Tablet 5 Mg PO BID Rosuvastatin Calcium 20 Mg Tablet 20 Mg PO HS Pantoprazole Sodium 40 Mg Tablet.dr 40 Mg PO DAILY Ventolin Hfa (Albuterol Sulfate) 1 Puff Puff 2 Puff IH Q4H PRN Tylenol (Acetaminophen) 325 Mg Tablet 650 Mg PO Q4H PRN Carvedilol 3.125 Mg Tablet 3.125 Mg PO BID HOLD FOR SBP <100 OR PULSE <60 Bumetanide 2 Mg Tablet 2 Mg PO 0800,1200 Centrum Women Tablet (Multivitamin/Iron/Folic Acid) 1 Each Tablet 1 Each PO DAILY Biofreeze (Menthol) 118 Ml Gel..ml. 1 Applic TP UD PRN Benzonatate 100 Mg Capsule 100 Mg PO QID PRN Aspirin EC (Aspirin) 81 Mg Tablet. 81 Mg PO DAILY Glimepiride 1 Mg Tablet 1 Mg PO DAILY Assessment/Pt Instructions PCP in 1 week at long-term rounds Discharge Planning: <30 minutes discharge planning Discharge Physical Examination Vital Signs Vital Signs Date Time Temp Pulse Resp B/P (MAP) Pulse Ox O2 Delivery O2 Flow Rate FiO2 02/17/22 11:01 36.4 103 22 136/77 (96) 92 High Flow N/C 5.00 02/16/22 02:26 45 General Appearance: No Apparent Distress, WD/WN, Chronically ill Allergies: Coded Allergies: buspirone (Verified Allergy, Mild, 02/11/22) Made"legs Shaky" amitriptyline (Verified Allergy, Unknown, 02/11/22) " MAKES ME DO WEIRD THINGS LIKE WALK IN MY SLEEP AND HAVE HALLUCINATIONS." amlodipine (Verified Allergy, Unknown, 02/11/22) Discharge Summary Date of Admission Feb 10, 2022 at 16:53 Date of Discharge Discharge Date: Feb 17, 2022 Discharge Diagnosis (1) Influenza A Status: Acute Assessment & Plan: Oseltamivir ordered. 02/13 had some worsening and repeat CXR concerning for developing infiltrate, started cefepime. MRSA nasal swab ordered to eval for MRSA carriage and possible MRSA risk. 02/14- change to cefdinir due to not tolerating IV access. (2) Acute on chronic respiratory failure Status: Acute Assessment & Plan: Secondary to Influenza A, COPD exacerbation and possibly CHF exacerbation. Supplemental oxygen as needed. Qualifiers: Qualified Codes: J96.21 - Acute and chronic respiratory failure with hypoxia (3) Chronic generalized pain Status: Chronic Assessment & Plan: Resume home medications (4) Obesity Status: Chronic Qualifiers: (5) Type 2 diabetes mellitus with complication Status: Chronic Assessment & Plan: Hold home insulin and diabetic meds. Sliding scale insulin and diabetic diet. (6) CHF (congestive heart failure) Status: Chronic (7) CHF exacerbation Status: Acute Assessment & Plan: Started on IV lasix 80 mg BID initially, Cardiology consulted, appreciate recommendations. BNP normal, no edema, on home supplemental oxygen, will resume home diuretics. Qualifiers: Qualified Codes: I50.23 - Acute on chronic systolic (congestive) heart failure (8) Anemia Status: Chronic Permanent Comment: Ferritin high, TIBC and iron normal 2020, consistent with anemia of chronic disease Last Edited By: Norah Martinez on Feb 11, 2022 20:26 Qualifiers: Qualified Codes: D63.8 - Anemia in other chronic diseases classified elsewhere (9) Hypomagnesemia Status: Acute Assessment & Plan: Replace and monitor. (10) Primary hypertension Status: Chronic Assessment & Plan: Resume home meds. (11) Hyponatremia Status: Resolved Assessment & Plan: Improving, possibly hypervolemic hyponatremia. Monitor with continued diuresis. (12) Coronary artery disease without angina pectoris Assessment & Plan: Resume home meds. (13) Mixed hyperlipidemia Assessment & Plan: Resume home rosuvastatin. (14) Chronic headaches Status: Chronic (15) Anxiety Status: Chronic (16) COPD (chronic obstructive pulmonary disease) Status: Acute Assessment & Plan: On chronic low dose prednisone. Will increase to 60 mg daily due to acute wheezing with influenza. Qualifiers: Qualified Codes: J44.1 - Chronic obstructive pulmonary disease with (acute) exacerbation (17) DVT prophylaxis Status: Acute Assessment & Plan: Enoxaparin (1) Chronic diastolic heart failure Assessment & Plan: She is back on her home dose of bumetanide. Her chest x-ray from this morning, 02/16, is improved. (2) Coronary artery disease without angina pectoris Assessment & Plan: She has a history of coronary artery disease but has not required revascularization in the past. She is not having any typical angina at this time. Continue aspirin, beta-nacho and statin medication. (3) Primary hypertension Status: Chronic Assessment & Plan: Blood pressure has been reasonably controlled with the current doses of carvedilol and hydralazine. (4) Mixed hyperlipidemia Assessment & Plan: Continue rosuvastatin. (5) Acute on chronic respiratory failure with hypoxemia Assessment & Plan: This is most likely noncardiac due to her influenza infection as well as an exacerbation of her chronic obstructive pulmonary disease. (6) Electronic cigarette use Assessment & Plan: She needs to stop using electronic cigarettes. She has been counseled in this regard. (7) Morbid obesity Assessment & Plan: She needs to work on weight loss. She has been counseled in this regard on numerous times in the past. RODY ALDANA DO Feb 17, 2022 11:23
--- NOTE | 2022-02-17 11:23 | Discharge Inst-Skilled Nursing ---
Discharge Inst-Skilled NF Reconcile Patient Problems Problems Reviewed?: Yes Patient Instructions Patient Problems: Debility Goal: independence Consult/Follow Up/Orders Follow Up Appt.: PCP PA rounds Skilled NF Admit to: [facility] (SNF) I certify that SNF services are required to be given on an inpatient basis because of the above named patient's need for snf care on a continuing basis for the conditions(s) for which he/she was receiving inpatient hospital services prior to his/her transfer to the SNF. Snf Facility Order: Nursing Services, [employer]-Evaluate & Treat, Physical Therapy-Evaluate & Treat Oxygen Delivery Method: High Flow N/C Resuscitation Status: Full Code New & Resume Previous Orders New Medications: Prednisone (Prednisone) 10 Mg Tab.ds.pk 10 MG PO DAILY, #21 EA Take 6 tabs(60mg)daily,decrease by 1 tab(10MG)daily. Cefdinir (Cefdinir) 300 Mg Capsule 300 MG PO BID, #6 CAP Hydralazine HCl (Hydralazine HCl) 10 Mg Tablet 10 MG PO TID, #90 TAB Changed Medications: Insulin Aspart (Novolog Flexpen) 100 Unit/Ml (3 Ml) Solution 10 UNITS SC WM for 7 Days, UNITS (Changed from: 15 UNITS) IF BS STILL OVER 450 CAB GUVE ANOTHER 15 UNITS Prednisone (Prednisone) 10 Mg Tab 10 MG PO DAILY for 7 Days, TAB (Medication details modified) hold until prednisone taper is completed then resume Continued Medications: Acetaminophen (Tylenol) 325 Mg Tablet 650 MG PO Q4H PRN for PAIN-MILD (1-4), TAB Albuterol Sulfate (Ventolin Hfa) 1 Puff Puff 2 PUFF IH Q4H PRN for SHORTNESS OF BREATH, EA Aspirin (Aspirin EC) 81 Mg Tablet.dr 81 MG PO DAILY, TAB Benzonatate (Benzonatate) 100 Mg Capsule 100 MG PO QID PRN for COUGH, CAP Bumetanide (Bumetanide) 2 Mg Tablet 2 MG PO 0800,1200, TAB Calcium Carbonate (Calcium Carbonate) 600 Mg Calcium (1500 Mg) Tablet 600 MG PO BID, TAB Carvedilol (Carvedilol) 3.125 Mg Tablet 3.125 MG PO BID, TAB HOLD FOR SBP <100 OR PULSE <60 Cholecalciferol (Vitamin D3) (Vitamin D3) 50 Mcg (2000 Unit) Tab.chew 50 MCG PO DAILY, TAB Clonazepam (Clonazepam) 1 Mg Tablet 1 MG PO TID, TAB Diclofenac Sodium (Diclofenac Sodium) 1 % Gel..gram. 2 GM TOP Q8H PRN for PAIN-BREAKTHROUGH, EA Dulaglutide (Trulicity) 0.75 Mg/0.5 Ml Pen.injctr 0.75 MG SQ MICHA, EA Duloxetine HCl (Duloxetine HCl) 60 Mg Capsule.dr 60 MG PO DAILY, CAP Fluticasone/Umeclidin/Vilanter (Trelegy Ellipta 100-62.5-25) 100-62.5 Blst.w.dev 1 EACH IH 1200, EA Glimepiride (Glimepiride) 1 Mg Tablet 1 MG PO DAILY, TAB Insulin Detemir (Levemir Flextouch) 100 Unit/Ml (3 Ml) Insuln.pen 25 UNIT SQ BID, EA Ipratropium/Albuterol Sulfate (Iprat-Albut 0.5-3(2.5) mg/3 ml) 0.5 Mg-3 Mg (2.5 Mg Base)/3 Ml Ampul.neb 3 ML IH Q4 -6H PRN for SHORTNESS OF BREATH, EACH Loperamide HCl (Imodium A-D) 2 Mg Capsule 2-4 MG PO UD PRN for LOOSE STOOLS, CAP Magnesium Oxide (Magnesium Oxide) 400 Mg Magnesium Tablet 400 MG PO BID, TAB Menthol (Biofreeze) 118 Ml Gel..ml. 1 APPLIC TP UD PRN for PAIN-BREAKTHROUGH, EA Methenamine Hippurate (Methenamine Hippurate) 1 Gram Tablet 1 GM PO BID, TAB Mirabegron (Myrbetriq) 25 Mg Tab.er.24h 25 MG PO DAILY, TAB Multivitamin/Iron/Folic Acid (Centrum Women Tablet) 1 Each Tablet 1 EACH PO DAILY, TAB Olanzapine (Olanzapine) 7.5 Mg Tablet 7.5 MG PO HS, TAB Oxybutynin Chloride (Oxybutynin Chloride) 5 Mg Tablet 5 MG PO BID, TAB Pantoprazole Sodium (Pantoprazole Sodium) 40 Mg Tablet.dr 40 MG PO DAILY, TAB Polyethylene Glycol 3350 (Miralax) 17 Gram Powd.pack 17 GM PO DAILY, EACH Potassium Chloride (K-Tab ER) 20 Meq Tablet.er 20 MEQ PO DAILY, TAB Promethazine HCl (Promethazine HCl) 12.5 Mg Tablet 12.5-25 MG PO Q6H PRN for NAUSEA/VOMITING-2ND LINE, TAB Rizatriptan Benzoate (Rizatriptan) 10 Mg Tablet 10 MG PO UD PRN for MIGRAINE MDD 20MG, TAB MAY REPEAT 1 DOSE IF INEFFECTIVE Rosuvastatin Calcium (Rosuvastatin Calcium) 20 Mg Tablet 20 MG PO HS, TAB Sodium Chloride (Saline Nasal [place]) 0.65 % [place] 2 SPRAYS NSEACH Q4H PRN for DRY NOSE, EA Topiramate (Topiramate) 50 Mg Tablet 50 MG PO BID, TAB Discontinued Medications: Metformin HCl (Metformin HCl ER) 500 Mg Tab.er.24h 1000 MG PO BID, TAB TAKES 2 (500MG) TABS Leila Saeed Feb 17, 2022 11:22 LEILA SAEED DO Feb 17, 2022 11:23
[2022-02-17 12:30] VITALS: BP 136/77
== END 2022-02-17 15:40 | DRG 291 ==
LOC: EDUNIT# 15:37 → ER 15:38 → 4TH 16:53
PROVIDERS: ADMIT Family Medicine; ATTEND Internal Medicine
PROC: 8E0ZXY6 Isolation (ICD-10-PCS; 2022-02-10)
PROC: 5A0945A Assistance with Respiratory Ventilation, 24-96 Consecutive Hours, High Flow/Velocity Cannula (ICD-10-PCS; principal; 2022-02-12)
DX: I11.0 Hypertensive heart disease with heart failure (principal); I50.33 Acute on chronic diastolic (congestive) heart failure; J96.21 Acute and chronic respiratory failure with hypoxia; J44.1 Chronic obstructive pulmonary disease with (acute) exacerbation; Z68.42 Body mass index [BMI] 45.0-49.9, adult; I44.2 Atrioventricular block, complete; Z16.12 Extended spectrum beta lactamase (ESBL) resistance; F17.290 Nicotine dependence, other tobacco product, uncomplicated; I42.9 Cardiomyopathy, unspecified; I25.10 Atherosclerotic heart disease of native coronary artery without angina pectoris; E66.01 Morbid (severe) obesity due to excess calories; E11.9 Type 2 diabetes mellitus without complications; G47.30 Sleep apnea, unspecified; J10.1 Influenza due to other identified influenza virus with other respiratory manifestations; K21.9 Gastro-esophageal reflux disease without esophagitis; F41.9 Anxiety disorder, unspecified; E78.2 Mixed hyperlipidemia; D64.9 Anemia, unspecified; M19.91 Primary osteoarthritis, unspecified site; I35.1 Nonrheumatic aortic (valve) insufficiency; F15.10 Other stimulant abuse, uncomplicated; F11.10 Opioid abuse, uncomplicated; F13.10 Sedative, hypnotic or anxiolytic abuse, uncomplicated; Z99.81 Dependence on supplemental oxygen; Z91.14 Patient's other noncompliance with medication regimen; Z22.322 Carrier or suspected carrier of Methicillin resistant Staphylococcus aureus; Z79.85 Long-term (current) use of injectable non-insulin antidiabetic drugs; Z79.4 Long term (current) use of insulin; Z79.84 Long term (current) use of oral hypoglycemic drugs
CPT/HCPCS: 36415; 71045; 71046; 80048; 80053; 82947; 83690; 83735; 83880; 84484; 85025; 85027; 85610; 85730; 87081; 87636; 93005; 93041; 94640; 94760; 96374

== ENCOUNTER 2022-04-04 19:40 | Outpatient (CLI) | payer MEDICARE, MEDICAID ==
[~2022-04-04 19:40] MED LIST changes: +CALC600T80 PO; +DICL100G13 TOP; +DULO60CA59 PO; +HYDR-3922 PO; +INSU100I14 SC; +LOPE-175 PO; +METF-865 PO; +MIRA25TA PO; +OLAN7.5T18 PO; +POLY17PO6 PO; -POTA10CA43 PO; +POTA10CA44 PO; +SODI30SP2 NSEACH; +TOPI50TA13 PO
== END 2022-04-05 05:30 | disposition home or self-care (01) ==
LOC: SLEEP 19:40
PROVIDERS: ATTEND Internal Medicine Critical Care Medicine
DX: G47.33 Obstructive sleep apnea (adult) (pediatric) (principal); G47.10 Hypersomnia, unspecified; G47.36 Sleep related hypoventilation in conditions classified elsewhere; R06.83 Snoring
CPT/HCPCS: 95811

== ENCOUNTER 2022-06-03 23:37 | Emergency (ER) | payer MEDICARE, MEDICAID ==
[~2022-06-03] VITALS: Ht 177.8 cm; Wt 133.8 kg
[2022-06-03] MEDS: NITROGLYCERIN 0.4 MG SL TABS BTL 25'S SL PRN ×2 (23:55→23:59)
--- NOTE | 2022-06-03 23:59 | ED Chest Pain ---
General Chief Complaint: Chest Pain Stated Complaint: CP Nursing Triage Note: BROUGHT IN BY [facility] FROM [facility] FOR EPIGASTRIC PAIN X1HR. Source: patient, EMS, [place] [facility] records, old records History of Present Illness Date Seen by Provider: Jun 03, 2022 Time Seen by Provider: 23:38 Initial Comments [facility] X 1 HOUR PAIN BEGAN WHILE SHE WAS SITTING AND WATCHING TV PAIN IS IN MIDDLE OF CHEST, AND RATES IT "9 1/2", AND STATES IT FEELS LIKE "CONTRACTIONS" NO RADIATION OF PAIN PT IS ALSO MORE SHORT OF BREATH THAN NORMAL SINCE PAIN STARTED PT HAS COPD AND IS O2 DEPENDENT AT 4L/NC + SWEATS WHEN PAIN STARTED NO NAUSEA/VOMITING NO PALPITATIONS NO DIZZINESS OR SYNCOPE NO SWELLING IN LEGS/FEET OR PAIN IN CALVES SYMPTOMS ARE WORSE IF SHE LAYS FLAT, AND BETTER IF SHE SITS UP. SHE USED HER ADVAIR INHALER TONIGHT AT NORMAL TIME. SHE HAS NOT USED ANYTHING ELSE FOR HER SYMPTOMS SHE HAS NOT TAKEN ANYTHING FOR PAIN NO TREATMENT DONE AT CUSTODIAL SHE HAS ALSO BEEN HAVING RIGHT UPPER QUADRANT ABDOMINAL PAIN FOR OVER A WEEK PAIN IS CONSTANT, AND NOTHING WORSENS OR IMPROVES PAIN SHE HAS NOT SOUGHT CARE AT ANY TIME FOR THAT PAIN, SHE HAS NOT TAKEN ANYTHING FOR PAIN EMS GAVE 324 MG ASPIRIN, NO OTHER TREATMENT BY EMS. NO FEVER OR COUGH/CONGESTION OR SORE THROAT PT HAS HAD COVID VACCINE X 3 AND FLU VACCINE FOR THIS SEASON PT HAS EXTENSIVE MEDICAL HISTORY INCLUDING: CHF, COPD, HTN, MORBID OBESITY; CH RONIC GENERALIZED PAIN; INSULIN DEPENDENT DIABETES; HYPERLIPIDEMIA SHE HAS AN EXTENSIVE HISTORY OF SMOKING--3-4 PPD, AND CONTINUES TO VAPE NICOTINE AT CUSTODIAL, INCLUDING TONIGHT BEFORE THE CHEST PAIN STARTED. SHE ALSO HAS AND EXTENSIVE HISTORY OF DRUG USE, ESPECIALLY METHAMPHETAMINES AND MARIJUANA, WITH LONG HISTORY OF IV METH USE, WELL SMOKING METH. SHE CLAIMS NO RECENT USE SHE HAS HISTORY OF ALCOHOL USE, BUT CLAIMS NO RECENT USE SHE HAS HAD MULTIPLE VISITS AND ADMITS, LAST VISIT / ADMIT 02/2022 FOR ACUTE ON CHRONIC RESPIRATORY FAILURE AND EXACERBATION OF CHF, ALONG WITH INFLUENZA A. PT IS DNR/DNI PCP: [facility] Allergies and Home Medications Allergies Coded Allergies: buspirone (Verified Allergy, Mild, 02/11/22) Made"legs Shaky" amitriptyline (Verified Allergy, Unknown, 02/11/22) " MAKES ME DO WEIRD THINGS LIKE WALK IN MY SLEEP AND HAVE HALLUCINATIONS." amlodipine (Verified Allergy, Unknown, 02/11/22) Patient Home Medication List Home Medication List Reviewed: Yes Acetaminophen (Tylenol) 325 Mg Tablet, 650 MG PO Q4H PRN for PAIN-MILD (1-4), (Reported) Entered as Reported by: SEAN ARTEAGA on 03/20/21 1008 Albuterol Sulfate (Ventolin Hfa) 1 Puff Puff, 2 PUFF IH Q4H PRN for SHORTNESS OF BREATH, (Reported) Entered as Reported by: SEAN ARTEAGA on 03/20/21 1008 Aspirin (Aspirin EC) 81 Mg Tablet.dr, 81 MG PO DAILY, (Reported) Entered as Reported by: HARSH PARRISH on 11/19/17 1603 Benzonatate (Benzonatate) 100 Mg Capsule, 100 MG PO QID PRN for COUGH, (Reported) Entered as Reported by: DAINELLE RICHARD on 07/31/20 1616 Bumetanide (Bumetanide) 2 Mg Tablet, 2 MG PO 0800,1200, (Reported) Entered as Reported by: SEAN ARTEAGA on 03/20/21 1008 Calcium Carbonate (Calcium Carbonate) 600 Mg Calcium (1500 Mg) Tablet, 600 MG PO BID, (Reported) Entered as Reported by: DANIELLE RICHARD on 02/11/22 1003 Carvedilol (Carvedilol) 3.125 Mg Tablet, 3.125 MG PO BID, (Reported) Entered as Reported by: SEAN ARTEAGA on 03/20/21 1008 Cefdinir (Cefdinir) 300 Mg Capsule, 300 MG PO BID Prescribed by: RODY ALDANA on 02/17/22 1122 Cholecalciferol (Vitamin D3) (Vitamin D3) 50 Mcg (2000 Unit) Tab.chew, 50 MCG PO DAILY, (Reported) Entered as Reported by: CARLOS BANSAL on 11/14/21 1048 Clonazepam (Clonazepam) 1 Mg Tablet, 1 MG PO TID, (Reported) Entered as Reported by: CARLOS BANSAL on 11/14/21 1048 Diclofenac Sodium (Diclofenac Sodium) 1 % Gel..gram., 2 GM TOP Q8H PRN for PAIN- BREAKTHROUGH, (Reported) Entered as Reported by: DANIELLE RICHARD on 02/11/22 100 Dulaglutide (Trulicity) 0.75 Mg/0.5 Ml Pen.injctr, 0.75 MG SQ MICHA, (Reported) Entered as Reported by: CARLOS BANSAL on 11/14/21 104 Duloxetine HCl (Duloxetine HCl) 60 Mg Capsule.dr, 60 MG PO DAILY, (Reported) Entered as Reported by: DANIELLE RICHARD on 02/11/22 100 Fluticasone/Umeclidin/Vilanter (Trelegy Ellipta 100-62.5-25) 100-62.5 Blst.w.dev, 1 EACH IH 1200, (Reported) Entered as Reported by: CARLOS BANSAL on 11/14/21 104 Glimepiride (Glimepiride) 1 Mg Tablet, 1 MG PO DAILY, (Reported) Entered as Reported by: HARSH PARRISH on 04/29/17 1346 Hydralazine HCl (Hydralazine HCl) 10 Mg Tablet, 10 MG PO TID Prescribed by: RODY ALDANA on 02/17/22 112 Insulin Aspart (Novolog Flexpen) 100 Unit/Ml (3 Ml) Solution, 10 UNITS SC WM Prescribed by: RODY ALDANA on 02/17/22 112 Insulin Detemir (Levemir Flextouch) 100 Unit/Ml (3 Ml) Insuln.pen, 25 UNIT SQ BID, (Reported) Entered as Reported by: CARLOS BANSAL on 11/14/21 104 Ipratropium/Albuterol Sulfate (Iprat-Albut 0.5-3(2.5) mg/3 ml) 0.5 Mg-3 Mg (2.5 Mg Base)/3 Ml Ampul.neb, 3 ML IH Q4 -6H PRN for SHORTNESS OF BREATH, (Reported) Entered as Reported by: CARLOS BANSAL on 11/14/21 104 Loperamide HCl (Imodium A-D) 2 Mg Capsule, 2-4 MG PO UD PRN for LOOSE STOOLS, (Reported) Entered as Reported by: DANIELLE RICHARD on 02/11/22 100 Magnesium Oxide (Magnesium Oxide) 400 Mg Magnesium Tablet, 400 MG PO BID, (Reported) Entered as Reported by: DANIELLE RICHARD on 02/11/22 1003 Menthol (Biofreeze) 118 Ml Gel..ml., 1 APPLIC TP UD PRN for PAIN-BREAKTHROUGH, (Reported) Entered as Reported by: DANIELLE RICHARD on 12/18/20 112 Methenamine Hippurate (Methenamine Hippurate) 1 Gram Tablet, 1 GM PO BID, (Reported) Entered as Reported by: CARLOS BANSAL on 11/14/21 104 Mirabegron (Myrbetriq) 25 Mg Tab.er.24h, 25 MG PO DAILY, (Reported) Entered as Reported by: DANIELLE RICHARD on 02/11/22 100 Multivitamin/Iron/Folic Acid (Centrum Women Tablet) 1 Each Tablet, 1 EACH PO DAILY, (Reported) Entered as Reported by: DANIELLE RICHARD on 12/18/20 112 Olanzapine (Olanzapine) 7.5 Mg Tablet, 7.5 MG PO HS, (Reported) Entered as Reported by: DANIELLE RICHARD on 02/11/22 100 Oxybutynin Chloride (Oxybutynin Chloride) 5 Mg Tablet, 5 MG PO BID, (Reported) Entered as Reported by: SEAN ARTEAGA on 03/20/21 100 Pantoprazole Sodium (Pantoprazole Sodium) 40 Mg Tablet.dr, 40 MG PO DAILY, (Reported) Entered as Reported by: SEAN ARTEAGA on 03/20/21 100 Polyethylene Glycol 3350 (Miralax) 17 Gram Powd.pack, 17 GM PO DAILY, (Reported) Entered as Reported by: DANIELLE RICHARD on 02/11/22 100 Potassium Chloride (K-Tab ER) 20 Meq Tablet.er, 20 MEQ PO DAILY, (Reported) Entered as Reported by: CARLOS BANSAL on 11/14/21 104 Prednisone (Prednisone) 10 Mg Tab, 10 MG PO DAILY Prescribed by: RODY ALDANA on 02/17/22 112 Prednisone (Prednisone) 10 Mg Tab.ds.pk, 10 MG PO DAILY Prescribed by: RODY ALDANA on 02/17/22 112 Promethazine HCl (Promethazine HCl) 12.5 Mg Tablet, 12.5-25 MG PO Q6H PRN for NAUSEA/VOMITING-2ND LINE, (Reported) Entered as Reported by: DANIELLE RICHARD on 02/11/22 1003 Rizatriptan Benzoate (Rizatriptan) 10 Mg Tablet, 10 MG PO UD PRN for MIGRAINE, (Reported) Entered as Reported by: CARLOS BANSAL on 11/14/21 1048 Rosuvastatin Calcium (Rosuvastatin Calcium) 20 Mg Tablet, 20 MG PO HS, (Reported) Entered as Reported by: SEAN ARTEAGA on 03/20/21 1008 Sodium Chloride (Saline Nasal Deport) 0.65 % Deport, 2 SPRAYS NSEACH Q4H PRN for DRY NOSE, (Reported) Entered as Reported by: DANIELLE RICHARD on 02/11/22 1003 Topiramate (Topiramate) 50 Mg Tablet, 50 MG PO BID, (Reported) Entered as Reported by: DANIELLE RICHARD on 02/11/22 1003 Review of Systems Review of Systems Constitutional: see HPI, diaphoresis EENTM: No Symptoms Reported Respiratory: See HPI, Orthopnea, Shortness of Air Cardiovascular: See HPI, Chest Pain; Denies Edema, Denies Lightheadedness, Denies Palpitations, Denies Syncope Gastrointestinal: See HPI, Abdominal Pain; Denies Nausea, Denies Vomiting Genitourinary: No Symptoms Reported Musculoskeletal: no symptoms reported Skin: no symptoms reported Psychiatric/Neurological: Anxiety Endocrine: No Symptoms Reported Hematologic/Lymphatic: No Symptoms Reported Past Mjncgbd-Ckdhfa-Iqghyx Hx Patient Social History Tobacco Use?: Yes Tobacco type used: Cigarettes Smoking Status: Current Everyday Smoker Use of E-Cig and/or Vaping dev: Yes E-Cig or Vaping type used: Nicotine Substance use?: Yes Substance type: Methamphetamine, Marijuana Alcohol Use?: Yes Pt feels they are or have been: No Immunizations Up To Date Tetanus Booster (TDap): Unknown First/Initial COVID19 Vaccinat: 04/09/20 Second COVID19 Vaccination Dustin: 04/28/20 Third COVID19 Vaccination Date: 05/10/21 Seasonal Allergies Seasonal Allergies: No Past Medical History Surgery/Hospitalization HX: IDDM,CHF,COPD,ANXIETY,HIGH LIPIDS, acute kidney failure, uti,CONSTIPATION, DIARRHEA, BIPOLAR, HTN, CAD, BRONCHITIS, TANG, GERD EGD/COLONOSCOPY, CARDIAC CATH UPPER AND LOWER DENTURES WITH PATIENT ON ADMISSION Surgeries: Yes (EGD/COLONOSCOPY; CARDIAC CATH 09/18/17--NO INTERVENTION) Cardiac Respiratory: Yes (O2 AT 4L/NC CONTINUOUSLY) Pneumonia, Chronic Bronchitis, Sleep Apnea, COPD Currently Using CPAP: No Currently Using BIPAP: Yes Cardiac: Yes Cardiomyopathy, Chronic Edema/Swelling, Coronary Artery Disease, High Cholesterol, Hypertension Neurological: Yes Headaches /Migraines 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 Disorders: No 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 Disorders: Denies [employer] History: Menopausal Sexually Transmitted Disease: No HIV/AIDS: No Genitourinary: Yes Bladder Infection Gastrointestinal: Yes (GASTRITIS AND ESOPHAGEAL CANDIDIASIS 04/2017) Gastroesophageal Reflux, Gastrointestinal Bleed, Chronic Constipation, Chronic Diarrhea, Polyps, Esophagitis, Ulcer Musculoskeletal: Yes (chronic shoulder and neck pain--OPIATE DEPENDENT;MINIMALLY AMBULATORY) Degenerate Disk Disease, Arthritis, Chronic Back Pain Endocrine: Yes ( MORBID OBESITY) Diabetes, Insulin dep HEENT: Yes (EDENTULOUS) Cancer: No Psychosocial: Yes (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; POLYSUBSTANCE ABUSE) Sleep Difficulties, Anxiety, Suicide Attempts, Bipolar, Depression Integumentary: No Blood Disorders: Yes (ANEMIA) Adverse Reaction/Blood Tranf: No Family Medical History Cancer 03 MOTHER, Onset:66 (LUNG ) 09 BROTHER (LUNG ) Congestive heart failure 03 FATHER Heart Disease, Cancer SOCIAL HISTORY: -SMOKED 3-4 PPD, NOW VAPES NICOTINE IN CUSTODIAL -ETOH--HISTORY OF USE, CLAIMS NONE IN CUSTODIAL -DRUGS--EXTENSIVE METHAMPHETAMINE AND MARIJUANA USE, INCLUDING IV METHAMPHETAMINE USE, WELL SMOKING IT, IN ADDITION TO SMOKING MARIJUANA; SHE ALSO HAS 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 PAST SURGICAL HISTORY: -EGD'S/COLONOSCOPIES -COLONOSCOPY 11/26/[address] RAMOS: POSTOPERATIVE DIAGNOSIS: Colon polyps. PROCEDURE: Colonoscopy with hot biopsy polypectomy x2 and snare polypectomy x4. -CARDIAC CATH 09/18/2017--NO INTERVENTION -CARDIAC CATH 03/20/[address] GOULD: CONCLUSION: 1. Dilated coronary system with mild ectasia in the LAD, nonobstructive disease 2. Mildly elevated left ventricular end-diastolic pressure DISCUSSION AND RECOMMENDATION: Medical therapy is recommended no intervention is needed Physical Exam Vital Signs Vital Signs - First Documented 06/03/22 23:37 Temp 36.0 Pulse 102 Resp 22 B/P (MAP) 128/76 (93) Pulse Ox 97 O2 Delivery Nasal Cannula O2 Flow Rate 4.00 Capillary Refill : Less Than 3 Seconds Height, Weight, BMI Height: 5'9.00" Weight: 197lbs. 0.9oz. 89.221135oz; 42.00 BMI Method:Stated General Appearance: Anxious, Mild Distress (DYSPNEIC WITH PUFFED CHEEK BREATHING ABLE TO TALK IS SHORT 4-5 WORD SENTENCES), Obese HEENT: Other (EDENTULOUS. CONSTANT LIP LICKING AND MOUTH MOVEMENTS. 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 Norm as Tested Skin: Normal Color, Warm/Dry Progress/Results/Core Measures Results/Orders Lab Results Laboratory Tests Test 06/03/22 23:51 06/03/22 23:55 Range/Units Influenza Type A (RT-PCR) Not Detected Not Detecte Influenza Type B (RT-PCR) Not Detected Not Detecte SARS-CoV-2 RNA (RT-PCR) Not Detected Not Detecte White Blood Count 11.4 H 4.3-11.0 10^3/uL Red Blood Count 4.39 3.80-5.11 10^6/uL Hemoglobin 10.3 L 11.5-16.0 g/dL Hematocrit 34 L 35-52 % Mean Corpuscular Volume 77 L 80-99 fL Mean Corpuscular Hemoglobin 24 L 25-34 pg Mean Corpuscular Hemoglobin Concent 30 L 32-36 g/dL Red Cell Distribution Width 17.1 H 10.0-14.5 % Platelet Count 297 130-400 10^3/uL Mean Platelet Volume 10.1 9.0-12.2 fL Immature Granulocyte % (Auto) 1 % Neutrophils (%) (Auto) 68 42-75 % Lymphocytes (%) (Auto) 23 12-44 % Monocytes (%) (Auto) 7 0-12 % Eosinophils (%) (Auto) 1 0-10 % Basophils (%) (Auto) 0 0-10 % Neutrophils # (Auto) 7.7 1.8-7.8 10^3/uL Lymphocytes # (Auto) 2.6 1.0-4.0 10^3/uL Monocytes # (Auto) 0.8 0.0-1.0 10^3/uL Eosinophils # (Auto) 0.2 0.0-0.3 10^3/uL Basophils # (Auto) 0.0 0.0-0.1 10^3/uL Immature Granulocyte # (Auto) 0.1 0.0-0.1 10^3/uL Prothrombin Time 12.9 12.2-14.7 SEC INR Comment 0.9 0.8-1.4 Activated Partial Thromboplast Time 31 24-35 SEC D-Dimer < 0.27 0.00-0.49 UG/ML Sodium Level 137 135-145 MMOL/L Potassium Level 3.6 3.6-5.0 MMOL/L Chloride Level 99 98-107 MMOL/L Carbon Dioxide Level 25 21-32 MMOL/L Anion Gap 13 5-14 MMOL/L Blood Urea Nitrogen 22 H 7-18 MG/DL Creatinine 1.27 0.60-1.30 MG/DL Estimat Glomerular Filtration Rate 49 BUN/Creatinine Ratio 17 Glucose Level 181 H 70-105 MG/DL Calcium Level 9.5 8.5-10.1 MG/DL Corrected Calcium 9.6 8.5-10.1 MG/DL Magnesium Level 1.8 1.6-2.4 MG/DL Total Bilirubin 0.2 0.1-1.0 MG/DL Aspartate Amino Transf (AST/SGOT) 17 5-34 U/L Alanine Aminotransferase (ALT/SGPT) 29 0-55 U/L Alkaline Phosphatase 100 40-136 U/L Total Creatine Kinase 56 29-168 U/L Creatine Kinase MB 1.8 <6.6 NG/ML Myoglobin 49.0 10.0-92.0 NG/ML Troponin I < 0.028 <0.028 NG/ML B-Type Natriuretic Peptide 30.9 <100.0 PG/ML Total Protein 7.0 6.4-8.2 GM/DL Albumin 3.9 3.2-4.5 GM/DL Amylase Level 42 25-125 U/L Lipase 22 8-78 U/L My Orders Orders - TIMOTHY HUGHES DO Cbc With Automated Diff (06/03/22 23:38) Magnesium (06/03/22 23:38) Ekg Tracing (06/03/22 23:38) Comprehensive Metabolic Panel (06/03/22 23:38) Myoglobin Serum (06/03/22 23:38) Protime With Inr (06/03/22:) Partial Thromboplastin Time (06/03/22:38) O2 (06/03/22:38) Monitor-Rhythm Ecg Trace Only (06/03/22:38) Ed Iv/Invasive Line Start (06/03/22:) Creatine Kinase (06/03/22:) Creatine Kinase Mb (06/03/22:) Lipase (06/03/22:38) Amylase (06/03/22 23:38) Bnp Jame (06/03/22:38) Fibrin Degradation Products (06/03/22:38) Troponin I Grady (06/03/22:38) Covid 19 Inhouse Test (06/03/22 23:38) Influenza A And B By Pcr (06/03/22 23:38) Isolation Central Supply Req (06/03/22 23:38) Nitroglycerin 0.4 Mg Btl 25's (Nitrostat (06/04/22 00:00) Chest 1 View, Ap/Pa Only (06/04/22 00:01) Lidocaine 2% Viscous 15 Ml (Xylocaine Vi (06/04/22 00:15) Antacid Suspension (Mylanta Suspension (06/04/22 00:15) Ct Chest/Abdomen/Pelvis Wo (06/04/22 01:13) Ketorolac Injection (Toradol Injection) (06/04/22 01:15) Medications Given in ED Current Medications Medications Dose Ordered Sig/Vladimir Route Start Time Stop Time Status Last Admin Dose Admin Al Hydrox/Mg Hydrox/Simethicone 30 ml ONCE ONCE PO 06/04/22 00:15 06/04/22 00:17 DC 06/04/22 00:09 30 ML Ketorolac Tromethamine 30 mg ONCE ONCE IVP 06/04/22 01:15 06/04/22 01:16 DC 06/04/22 01:33 30 MG Lidocaine HCl 15 ml ONCE ONCE PO 06/04/22 00:15 06/04/22 00:17 DC 06/04/22 00:09 15 ML Nitroglycerin 1 TAB Q 5 MIN X 3 NEEDED PRN SL 06/04/22 00:00 06/04/22 00:09 0.4 MG Vital Signs/I&O 06/03/22 06/03/22 23:37 23:37 Temp 36.0 Pulse 102 Resp 22 B/P (MAP) 128/76 (93) Pulse Ox 97 97 O2 Delivery Nasal Cannula Nasal Cannula O2 Flow Rate 4.00 4.00 Blood Pressure Mean: 93 Progress Progress Note : Progress Note PPE WORN COVID AND FLU TESTING DONE ON ARRIVAL: O2 SAT 97-98% ON 4L/NC HR AROUND 100 BP 120'S/70'S GIVEN: -NTG SL X 1--NO SIGNIFICANT RELIEF -GI COCKTAIL--SOME RELIEF PAIN DOWN TO A "6" WITH THE ABOVE. -TORADOL--STATES LITTLE RELIEF DIFFERENTIAL DIAGNOSIS INCLUDES; ACUTE CORONARY SYNDROME; CHF; COPD EXACERBATION; PNEUMONIA; GERD / GI ETIOLOGY; PANCREATITIS; ANEURYSM; P.E.; MUSCULOSKELETAL ETIOLOGY EKG IS UNCHANGED FROM PREVIOUS AND SHOWS NO ACUTE CHANGES, AND CARDIAC ENZYMES ARE NEGATIVE, AND D-DIMER IS NEGATIVE. LIVER ENZYMES AND PANCREATIC ENZYMES ARE NEGATIVE. NO EVIDENCE OF PNEUMONIA OR CHF ON CXR, CT SCAN OR LAB VALUES--NORMAL WBC, AND NORMAL BNP, AND NO EDEMA NOTED ON EXAM, NO WHEEZING/RALES OR RHONCHI ON EXAM. PT HAS HISTORY OF GERD, AND FINDINGS OF PATULOUS ESOPHAGUS ON CT, AND PT DID HAVE IMPROVEMENT WITH GI COCKTAIL. ADDITIONALLY, HER CHEST PAIN IS REPRODUCIBLE WITH PALPATION DISCUSSED ALL TEST RESULTS, AND RECOMMENDED ADDITIONAL TESTING SUCH REPEAT EKG AND CARDIAC ENZYMES AND PT REFUSES, STATES "IT'S FINE" "I WANT TO GO BACK" STRONGLY ENCOURAGED PT TO STAY FOR ADDITIONAL TESTS AND SHE REFUSES. DISCUSSED BENEFITS OF STAYING AND RISKS, INCLUDING , AND PT DECLINES. PT STATES SHE IS READY TO GO BACK TO CUSTODIAL. O2 SATS REMAIN 97-98% ON PT'S NORMAL O2 AT 4L/NC ALL OTHER VITALS ARE STABLE--HR IN 70'S-80'S, BP 110-120'S/70'S NO DETERIORATION IN PT'S CONDITION DURING ER STAY REVIEWED CUSTODIAL RECORDS, PRIOR RECORDS INCLUDING ER VISITS, ADMITS/H&P'S/CONSULTS/DISCHARGE SUMMARIES, TESTS/PROCEDURES Initial ECG Impression Date: Jun 03, 2022 Initial ECG Impression Time: 23:47 Initial ECG Rate: 79 Initial ECG Rhythm: Normal Sinus Initial ECG Intervals MA 142 QRS 95 QT/QTC 382/417 Initial ECG Impression: Nonspecific Changes Initial ECG Comparisson: Unchanged Comment INTERPRETED BY ME Diagnostic Imaging Comments CXR--BIBASILAR ATELECTASIS VS INFILTRATE VS EFFUSION VS OVERLYING BREAST AND ABDOMINAL TISSUE--PENDING RADIOLOGIST REVIEW. CT CHEST/ABDOMEN/PELVIS--PER [facility] VIA FAX AT [phone] -NO ACUTE FINDINGS. -PATULOUS ESOPHAGUS Reviewed: Reviewed by Me Departure Impression Primary Impression: Chest pain Additional Impressions: RUQ pain COPD exacerbation GERD (gastroesophageal reflux disease) Disposition: 03 XFER SNF Condition: Stable Departure-Patient Inst. Decision time for Depature: 02:05 Referrals: [facility] (PCP/Family) Primary Care Physician Patient Instructions: Chest Pain (DC), Chronic Obstructive Pulmonary Disease (COPD) (DC), Abdominal Pain, Adult ED Add. Discharge Instructions: CONTINUE ALL YOUR REGULAR MEDICATIONS FOLLOW UP WITH YOUR DR. LATER TODAY FOR FURTHER CARE, RETURN TO ER IF SYMPTOMS WORSEN All discharge instructions reviewed with patient and/or family. Voiced understanding. TIMOTHY HUGHES DO Jun 03, 2022 23:59
[2022-06-04 00:05] LABS: BASOPHILS % (AUTO) 0 % (0-10); EOSINOPHILS # (AUTO) 0.2 10^3/uL (0.0-0.3); EOSINOPHILS % (AUTO) 1 % (0-10); HEMATOCRIT 34 % (35-52); HEMOGLOBIN 10.3 g/dL (11.5-16.0); LYMPHOCYTES # (AUTO) 2.6 10^3/uL (1.0-4.0); LYMPHOCYTES % (AUTO) 23 % (12-44); MEAN CORPUSCULAR HEMOGLOBIN 24 pg (25-34); MEAN CORPUSCULAR HGB CONC 30 g/dL (32-36); MEAN CORPUSCULAR VOLUME 77 fL (80-99); MEAN PLATELET VOLUME 10.1 fL (9.0-12.2); MONOCYTES # (AUTO) 0.8 10^3/uL (0.0-1.0); MONOCYTES % (AUTO) 7 % (0-12); NEUTROPHILS # (AUTO) 7.7 10^3/uL (1.8-7.8); NEUTROPHILS % (AUTO) 68 % (42-75); PLATELET COUNT 297 10^3/uL (130-400); WHITE BLOOD COUNT 11.4 10^3/uL (4.3-11.0)
[2022-06-04] MEDS: NITROGLYCERIN 0.4 MG SL TABS BTL 25'S SL PRN (00:09)
[2022-06-04] MEDS ORDERED: ANTACID SUSP 30 ML UDC (MYLANTA) PO ONE (00:15)
[2022-06-04] MEDS ORDERED: LIDOCAINE 2% VISCOUS 15 ML UDC PO ONE (00:15)
[2022-06-04 00:19] LABS: ALBUMIN 3.9 GM/DL (3.2-4.5); POTASSIUM 3.6 MMOL/L (3.6-5.0)
[2022-06-04 00:20] LABS: CALCIUM 9.5 MG/DL (8.5-10.1)
[2022-06-04 00:23] LABS: BILIRUBIN,TOTAL 0.2 MG/DL (0.1-1.0)
[2022-06-04 00:25] LABS: CREATININE SERUM 1.27 MG/DL (0.60-1.30)
[2022-06-04 00:28] LABS: MAGNESIUM 1.8 MG/DL (1.6-2.4)
[2022-06-04 00:36] LABS: CREATINE KINASE MB 1.8 NG/ML (<6.6)
[2022-06-04 00:53] LABS: INR 0.9 (0.8-1.4); PROTHROMBIN TIME PATIENT 12.9 SEC (12.2-14.7)
[2022-06-04] MEDS ORDERED: KETOROLAC 30 MG/ML VIAL IVP ONE (01:15)
[2022-06-04 02:18] VITALS: BP 109/74
--- NOTE | 2022-06-04 07:35 | Diagnostic Imaging Report ---
Indication: Chest pain COMPARISON: 02/16/2022 TECHNIQUE: Single radiograph the chest dated 06/04/2022 FINDINGS: The cardiac silhouette is mildly enlarged, stable from the prior examination. No significant pleural effusion. Mild left greater than right bibasilar opacities are present with associated small left pleural effusion. Overall appearance appears slightly improved since the prior examination. Upper lungs appear clear. No large-volume right pleural effusion. No pneumothorax. No acute osseous abnormality. IMPRESSION: Mild bibasilar atelectasis and/or pneumonitis with associated small left pleural effusion. Agree with preliminary interpretation. Dictated by: Dictated on workstation # [id number]
--- NOTE | 2022-06-04 08:14 | Diagnostic Imaging Report ---
PROCEDURE: CT chest, abdomen, and pelvis without contrast. TECHNIQUE: Multiple contiguous axial images were obtained through the chest, abdomen, and pelvis without the use of intravenous contrast. Auto Exposure Controls were utilized during the CT exam to meet ALARA standards for radiation dose reduction. INDICATION: Chest pain, right upper quadrant pain COMPARISON: 08/01/2020 and 11/20/2017 FINDINGS: No significant adenopathy of the chest. Mild scattered vascular calcifications, including within the coronary arteries. No aneurysmal dilatation of the thoracic aorta. The heart is mildly enlarged. No significant pericardial effusion. No pleural effusion. No pneumothorax. Moderate background emphysematous changes, particularly within the upper lungs. This is associated with mild bibasilar scarring and/or atelectasis. No acute osseous abnormality. The liver is mildly enlarged. The unenhanced liver is otherwise unremarkable. The unenhanced spleen is unremarkable. The adrenal glands are unremarkable. The pancreas is unremarkable. The gallbladder is unremarkable. The unenhanced bilateral kidneys and ureters are unremarkable. Mild vascular calcifications within abdominal aorta and its branch vessels without aneurysmal dilatation of the abdominal aorta. Small fat-containing umbilical hernia. The urinary bladder demonstrates internal locule of gas, though is otherwise unremarkable. The uterus and adnexal structures are unremarkable for age. No bowel obstruction or pneumatosis. No CT evidence of acute appendicitis. No significant adenopathy, free air, or free fluid in abdomen or pelvis. Scattered osseous degenerative changes without acute osseous abnormality. IMPRESSION: Background emphysematous changes within the lungs without acute abnormality within the chest. Tiny locule of gas within urinary bladder. This is favored to simply relate to recent instrumentation, though gas forming organism would be an additional consideration. Recommend correlation with urinary analysis. Otherwise, No acute findings within the abdomen or pelvis. Mild hepatomegaly. Additional findings as above. The nurse in the emergency department was notified about the locule of gas within the urinary bladder for which correlation with clinical history and potential urinary analysis is recommended. Otherwise, agree with preliminary interpretation. Report was FAXED and called to [facility] ER nurse Beronica by ferny at 8:13 AM. Dictated by: Dictated on workstation # [id number]
== END 2022-06-04 02:20 ==
LOC: EDUNIT# 23:37 → ER 23:38
DX: J44.1 Chronic obstructive pulmonary disease with (acute) exacerbation (principal); K21.9 Gastro-esophageal reflux disease without esophagitis; G47.30 Sleep apnea, unspecified; E66.01 Morbid (severe) obesity due to excess calories; F17.210 Nicotine dependence, cigarettes, uncomplicated; F17.290 Nicotine dependence, other tobacco product, uncomplicated; Z68.41 Body mass index [BMI] 40.0-44.9, adult; Z20.822 Contact with and (suspected) exposure to COVID-19; Z99.81 Dependence on supplemental oxygen; Z99.89 Dependence on other enabling machines and devices
CPT/HCPCS: 36415; 71045; 71250; 74176; 80053; 82150; 82550; 82553; 83690; 83735; 83874; 83880; 84484; 85025; 85379; 85610; 85730; 87636; 93005; 93041

== ENCOUNTER 2022-06-08 10:36 | Emergency (ER) | payer MEDICARE, MEDICAID ==
[2022-06-08] MEDS ORDERED: diphenhydrAMINE 50 MG/ML INJ (BENADRYL) IVP ONE (11:30)
[2022-06-08] MEDS ORDERED: PROCHLORPERAZINE 10 MG/2ML INJ (COMPAZINE) IV ONE (11:30)
--- NOTE | 2022-06-08 11:40 | ED Headache ---
General Chief Complaint: Head/Cervical Problems Stated Complaint: HEADACHE - COUGH Nursing Triage Note: PT AMB TO RM 6 WITH WALKER WITH C/O HEADACHE AND COUGH. PT SEEN AT [facility] [employer] HAND Source: patient Exam Limitations: no limitations History of Present Illness Date Seen by Provider: Jun 08, 2022 Time Seen by Provider: 11:21 Initial Comments 57-year-old female presents to the ED with complaints of a migraine since . She reports a history of migraines, states this feels the same, but it is just lasting longer. Reports that light and sound make her headache worse. Reports that she is seeing spots. She also appears short of breath, states she feels mildly more short of breath than normal. She has a past medical history of COPD and CHF. She also reports cough and some nausea. Denies fevers, chest pain, abdominal pain, vomiting, diarrhea, body aches, sore throat. She lives at [facility]. She was seen at the [facility] clinic prior to coming here. States that they told her they weren't able to do anything for her migraine, so they sent her here. Allergies and Home Medications Allergies Coded Allergies: buspirone (Verified Allergy, Mild, 02/11/22) Made"legs Shaky" amitriptyline (Verified Allergy, Unknown, 02/11/22) " MAKES ME DO WEIRD THINGS LIKE WALK IN MY SLEEP AND HAVE HALLUCINATIONS." amlodipine (Verified Allergy, Unknown, 02/11/22) Patient Home Medication List Home Medication List Reviewed: Yes Acetaminophen (Tylenol) 325 Mg Tablet, 650 MG PO Q4H PRN for PAIN-MILD (1-4), (Reported) Entered as Reported by: SEAN ARTEAGA on 03/20/21 1008 Albuterol Sulfate (Ventolin Hfa) 1 Puff Puff, 2 PUFF IH Q4H PRN for SHORTNESS OF BREATH, (Reported) Entered as Reported by: SEAN ARTEAGA on 03/20/21 1008 Aspirin (Aspirin EC) 81 Mg Tablet.dr, 81 MG PO DAILY, (Reported) Entered as Reported by: HARSH PARRISH on 11/19/17 1603 Benzonatate (Benzonatate) 100 Mg Capsule, 100 MG PO QID PRN for COUGH, (Reported) Entered as Reported by: DANIELLE RICHARD on 07/31/20 1616 Bumetanide (Bumetanide) 2 Mg Tablet, 2 MG PO 0800,1200, (Reported) Entered as Reported by: SEAN ARTEAGA on 03/20/21 1008 Calcium Carbonate (Calcium Carbonate) 600 Mg Calcium (1500 Mg) Tablet, 600 MG PO BID, (Reported) Entered as Reported by: DANIELLE RICHARD on 02/11/22 1003 Carvedilol (Carvedilol) 3.125 Mg Tablet, 3.125 MG PO BID, (Reported) Entered as Reported by: SEAN ARTEAGA on 03/20/21 1008 Cefdinir (Cefdinir) 300 Mg Capsule, 300 MG PO BID Prescribed by: RODY ALDANA on 02/17/22 1122 Cholecalciferol (Vitamin D3) (Vitamin D3) 50 Mcg (2000 Unit) Tab.chew, 50 MCG PO DAILY, (Reported) Entered as Reported by: CARLOS BANSAL on 11/14/21 1048 Clonazepam (Clonazepam) 1 Mg Tablet, 1 MG PO TID, (Reported) Entered as Reported by: CARLOS BANSAL on 11/14/21 104 Diclofenac Sodium (Diclofenac Sodium) 1 % Gel..gram., 2 GM TOP Q8H PRN for PAIN- BREAKTHROUGH, (Reported) Entered as Reported by: DANIELLE RICHARD on 02/11/22 100 Dulaglutide (Trulicity) 0.75 Mg/0.5 Ml Pen.injctr, 0.75 MG SQ MICHA, (Reported) Entered as Reported by: CARLOS BANSAL on 11/14/21 104 Duloxetine HCl (Duloxetine HCl) 60 Mg Capsule.dr, 60 MG PO DAILY, (Reported) Entered as Reported by: DANIELLE RICHARD on 02/11/22 1003 Fluticasone/Umeclidin/Vilanter (Trelegy Ellipta 100-62.5-25) 100-62.5 Blst.w.dev, 1 EACH IH 1200, (Reported) Entered as Reported by: CARLOS BANSAL on 11/14/21 1048 Glimepiride (Glimepiride) 1 Mg Tablet, 1 MG PO DAILY, (Reported) Entered as Reported by: HARSH PARRISH on 04/29/17 1346 Hydralazine HCl (Hydralazine HCl) 10 Mg Tablet, 10 MG PO TID Prescribed by: RODY ALDANA on 02/17/22 112 Insulin Aspart (Novolog Flexpen) 100 Unit/Ml (3 Ml) Solution, 10 UNITS SC WM Prescribed by: RODY ALDANA on 02/17/221121 Insulin Detemir (Levemir Flextouch) 100 Unit/Ml (3 Ml) Insuln.pen, 25 UNIT SQ BID, (Reported) Entered as Reported by: CARLOS BANSAL on 11/14/21 104 Ipratropium/Albuterol Sulfate (Iprat-Albut 0.5-3(2.5) mg/3 ml) 0.5 Mg-3 Mg (2.5 Mg Base)/3 Ml Ampul.neb, 3 ML IH Q4 -6H PRN for SHORTNESS OF BREATH, (Reported) Entered as Reported by: CARLOS BANSAL on 11/14/21 104 Loperamide HCl (Imodium A-D) 2 Mg Capsule, 2-4 MG PO UD PRN for LOOSE STOOLS, (Reported) Entered as Reported by: DANIELLE RICHARD on 02/11/22 100 Magnesium Oxide (Magnesium Oxide) 400 Mg Magnesium Tablet, 400 MG PO BID, (Reported) Entered as Reported by: DANIELLE RICHARD on 02/11/22 100 Menthol (Biofreeze) 118 Ml Gel..ml., 1 APPLIC TP UD PRN for PAIN-BREAKTHROUGH, (Reported) Entered as Reported by: DANIELLE RICHARD on 12/18/20 112 Methenamine Hippurate (Methenamine Hippurate) 1 Gram Tablet, 1 GM PO BID, (Reported) Entered as Reported by: CARLOS BANSAL on 11/14/21 104 Mirabegron (Myrbetriq) 25 Mg Tab.er.24h, 25 MG PO DAILY, (Reported) Entered as Reported by: DANIELLE RICHARD on 02/11/22 1003 Multivitamin/Iron/Folic Acid (Centrum Women Tablet) 1 Each Tablet, 1 EACH PO DAILY, (Reported) Entered as Reported by: DANIELLE RICHARD on 12/18/20 112 Olanzapine (Olanzapine) 7.5 Mg Tablet, 7.5 MG PO HS, (Reported) Entered as Reported by: DANIELLE RICHARD on 02/11/22 100 Oxybutynin Chloride (Oxybutynin Chloride) 5 Mg Tablet, 5 MG PO BID, (Reported) Entered as Reported by: SEAN ARTEAGA on 03/20/21 100 Pantoprazole Sodium (Pantoprazole Sodium) 40 Mg Tablet.dr, 40 MG PO DAILY, (Reported) Entered as Reported by: SEAN ARTEAGA on 03/20/21 100 Polyethylene Glycol 3350 (Miralax) 17 Gram Powd.pack, 17 GM PO DAILY, (Reported) Entered as Reported by: DANIELLE RICHARD on 02/11/22 100 Potassium Chloride (K-Tab ER) 20 Meq Tablet.er, 20 MEQ PO DAILY, (Reported) Entered as Reported by: CARLOS BANSAL on 11/14/21 104 Prednisone (Prednisone) 10 Mg Tab, 10 MG PO DAILY Prescribed by: RODY ALDANA on 02/17/221121 Prednisone (Prednisone) 10 Mg Tab.ds.pk, 10 MG PO DAILY Prescribed by: RODY ALDANA on 02/17/221121 Promethazine HCl (Promethazine HCl) 12.5 Mg Tablet, 12.5-25 MG PO Q6H PRN for NAUSEA/VOMITING-2ND LINE, (Reported) Entered as Reported by: DANIELLE RICHARD on 02/11/221002 Rizatriptan Benzoate (Rizatriptan) 10 Mg Tablet, 10 MG PO UD PRN for MIGRAINE, (Reported) Entered as Reported by: CARLOS BANSAL on 11/14/21 104 Rosuvastatin Calcium (Rosuvastatin Calcium) 20 Mg Tablet, 20 MG PO HS, (Reported) Entered as Reported by: SEAN ARTEAGA on 03/20/21 100 Sodium Chloride (Saline Nasal [place]) 0.65 % [place], 2 SPRAYS NSEACH Q4H PRN for DRY NOSE, (Reported) Entered as Reported by: DANIELLE RICHARD on 02/11/221002 Topiramate (Topiramate) 50 Mg Tablet, 50 MG PO BID, (Reported) Entered as Reported by: DANIELLE RICHARD on 02/11/22 100 Review of Systems Review of Systems Constitutional: see HPI Past Rdnejdu-Bmmpfq-Ccsmud Hx Patient Social History Tobacco Use?: No Use of E-Cig and/or Vaping dev: Yes Substance use?: No Alcohol Use?: No Pt feels they are or have been: No Immunizations Up To Date Tetanus Booster (TDap): Unknown First/Initial COVID19 Vaccinat: 04/09/20 Second COVID19 Vaccination Dustin: 04/28/20 Third COVID19 Vaccination Date: 04/09/20 Seasonal Allergies Seasonal Allergies: No Past Medical History Surgery/Hospitalization HX: IDDM,CHF,COPD,ANXIETY,HIGH LIPIDS, acute kidney failure, uti,CONSTIPATION, DIARRHEA, BIPOLAR, HTN, CAD, BRONCHITIS, TANG, GERD EGD/COLONOSCOPY, CARDIAC CATH UPPER AND LOWER DENTURES WITH PATIENT ON ADMISSION Surgeries: Yes (EGD/COLONOSCOPY; CARDIAC CATH 09/18/17--NO INTERVENTION) Cardiac Respiratory: Yes (O2 AT 4L/NC CONTINUOUSLY) Pneumonia, Chronic Bronchitis, Sleep Apnea, COPD Currently Using CPAP: No Currently Using BIPAP: Yes Cardiac: Yes Cardiomyopathy, Chronic Edema/Swelling, Coronary Artery Disease, High Cholesterol, Hypertension Neurological: Yes Headaches /Migraines 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 Disorders: No 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 Disorders: Denies [employer] History: Menopausal Sexually Transmitted Disease: No HIV/AIDS: No Genitourinary: Yes Bladder Infection Gastrointestinal: Yes (GASTRITIS AND ESOPHAGEAL CANDIDIASIS 04/2017) Gastroesophageal Reflux, Gastrointestinal Bleed, Chronic Constipation, Chronic Diarrhea, Polyps, Esophagitis, Ulcer Musculoskeletal: Yes (chronic shoulder and neck pain--OPIATE DEPENDENT;MINIMALLY AMBULATORY) Degenerate Disk Disease, Arthritis, Chronic Back Pain Endocrine: Yes ( MORBID OBESITY) Diabetes, Insulin dep HEENT: Yes (EDENTULOUS) Cancer: No Psychosocial: Yes (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; POLYSUBSTANCE ABUSE) Sleep Difficulties, Anxiety, Suicide Attempts, Bipolar, Depression Integumentary: No Blood Disorders: Yes (ANEMIA) Adverse Reaction/Blood Tranf: No Family Medical History Cancer 03 MOTHER, Onset:66 (LUNG ) 09 BROTHER (LUNG ) Congestive heart failure 03 FATHER Heart Disease, Cancer SOCIAL HISTORY: -SMOKED 3-4 PPD, NOW VAPES NICOTINE IN CARE HOME -ETOH--HISTORY OF USE, CLAIMS NONE IN CARE HOME -DRUGS--EXTENSIVE METHAMPHETAMINE AND MARIJUANA USE, INCLUDING IV METHAMPHETAMINE USE, WELL SMOKING IT, IN ADDITION TO SMOKING MARIJUANA; SHE ALSO HAS 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 PAST SURGICAL HISTORY: -EGD'S/COLONOSCOPIES -COLONOSCOPY 11/26/[address] RAMOS: POSTOPERATIVE DIAGNOSIS: Colon polyps. PROCEDURE: Colonoscopy with hot biopsy polypectomy x2 and snare polypectomy x4. -CARDIAC CATH 09/18/2017--NO INTERVENTION -CARDIAC CATH 03/20/[address] GOULD: CONCLUSION: 1. Dilated coronary system with mild ectasia in the LAD, nonobstructive disease 2. Mildly elevated left ventricular end-diastolic pressure DISCUSSION AND RECOMMENDATION: Medical therapy is recommended no intervention is needed Physical Exam Vital Signs Vital Signs - First Documented 06/08/22 06/08/22 10:53 14:24 Temp 36.0 Pulse 91 Resp 98 B/P (MAP) 138/81 (100) Pulse Ox 97 O2 Delivery Nasal Cannula O2 Flow Rate 4.00 Capillary Refill : Height, Weight, BMI Height: 5'9.00" Weight: 197lbs. 0.9oz. 89.857345cv; 42.00 BMI Method:Stated General Appearance: no apparent distress HEENT: PERRL/EOMI, TMs normal, other (Eyes appear sunsetting) Neck: full range of motion, supple, normal inspection Cardiovascular: regular rate, rhythm, no edema, no gallop, no JVD, no murmur Respiratory: lungs clear, normal breath sounds, no respiratory distress, no accessory muscle use Psychiatric: alert, oriented x 3 Crainal Nerves: normal hearing, normal speech, PERRL Motor/Sensory: no motor deficit, no sensory deficit Skin: normal color, warm/dry Progress/Results/Core Measures Results/Orders Lab Results Laboratory Tests Test 06/08/22 12:08 Range/Units Influenza Type A (RT-PCR) Not Detected Not Detecte Influenza Type B (RT-PCR) Not Detected Not Detecte SARS-CoV-2 RNA (RT-PCR) Not Detected Not Detecte My Orders Orders - ANNA BARNARD APRN Ct Head Wo (06/08/22 11:28) Diphenhydramine Injection (Benadryl Inje (06/08/22 11:30) Prochlorperazine Injection (Compazine In (06/08/22 11:30) Covid 19 Inhouse Test (06/08/22 11:28) Influenza A And B By Pcr (06/08/22 11:28) Ketorolac Injection (Toradol Injection) (06/08/22 12:30) Hydromorphone Injection (Dilaudid Inject (06/08/22 13:30) Medications Given in ED Current Medications Medications Dose Ordered Sig/Vladimir Route Start Time Stop Time Status Last Admin Dose Admin Diphenhydramine HCl 25 mg ONCE ONCE IVP 06/08/22 11:30 06/08/22 11:32 DC 06/08/22 12:24 25 MG Hydromorphone HCl 0.5 mg ONCE ONCE IV 06/08/22 13:30 06/08/22 13:31 DC 06/08/22 13:37 0.5 MG Ketorolac Tromethamine 15 mg ONCE ONCE IVP 06/08/22 12:30 06/08/22 12:31 DC 06/08/22 12:37 15 MG Prochlorperazine Edisylate 10 mg ONCE ONCE IV 06/08/22 11:30 06/08/22 11:32 DC 06/08/22 12:24 10 MG Vital Signs/I&O 06/08/22 06/08/22 10:53 14:24 Temp 36.0 Pulse 91 94 Resp 98 B/P (MAP) 138/81 (100) 110/75 Pulse Ox 97 O2 Delivery Nasal Cannula Nasal Cannula O2 Flow Rate 4.00 4.00 Blood Pressure Mean: 100 Progress Progress Note : Time: 11:41 Progress Note Patient seen and evaluated, resting in bed, no acute distress. Based on exam and symptoms, work-up initiated including CT head. Compazine and Benadryl ordered. Will order Toradol if CT head is normal. Patient's lungs are clear, but patient appears short of air. Offered a breathing treatment. Patient declined stating that she just wants to get her head fixed. States that she has breathing treatments available that she can use at home. 1224 CT reviewed. Negative for intracranial hemorrhage. Toradol ordered. 1321 patient reports she still has a headache. Reports in the past she has been given Dilaudid for her migraine. She states she does not get a rebound headache after Dilaudid. Will order Dilaudid. 1420 patient reports she is feeling better, and would like to go home. Discharge instructions and return precautions provided. Departure Impression Primary Impression: Migraine Disposition: 01 HOME, SELF-CARE Condition: Stable Departure-Patient Inst. Decision time for Depature: 14:20 Referrals: [facility] (PCP/Family) Primary Care Physician Patient Instructions: Migraines (DC) Add. Discharge Instructions: Follow-up with your primary care provider. Return for worsening or uncontrolled pain, vision changes, recurrent vomiting, difficulty with normal activities, normal behavior, difficulty walking, numbness, weakness, or any other new, concerning, worsening symptoms. All discharge instructions reviewed with patient and/or family. Voiced understan ding. ANNA BARNARD TRAFFIC SIGN SUPERVISOR Jun 08, 2022 11:40
--- NOTE | 2022-06-08 11:58 | Diagnostic Imaging Report ---
PROCEDURE: CT head without contrast. TECHNIQUE: Multiple contiguous axial images were obtained through the brain without the use of intravenous contrast. Auto Exposure Controls were utilized during the CT exam to meet ALARA standards for radiation dose reduction. INDICATION: Migraine headaches. COMPARISON: 01/10/2013. FINDINGS: CT of the head demonstrates no evidence of an acute intracranial abnormality. There is no evidence of intracranial hemorrhage. There is no extra-axial fluid collection, mass effect or shift. Borrero and white matter differentiation appear preserved. There is no abnormal hypodensity within the basal ganglia. The ventricles are appropriate in size and configuration. There is no evidence of hydrocephalus. The basilar cisterns are patent. The posterior fossa is unremarkable. Mastoids and visualized paranasal sinuses appear clear. Orbital contents are unremarkable. There is no calvarial abnormality. IMPRESSION: 1. No CT evidence of an acute intracranial abnormality. Dictated by: Dictated on workstation # [id number]
[2022-06-08] MEDS ORDERED: KETOROLAC 15 MG/ML VIAL IVP ONE (12:30)
[2022-06-08] MEDS ORDERED: HYDROmorphone 2 MG/ML VIAL (DILAUDID) IV ONE (13:30)
[2022-06-08 14:24] VITALS: BP 110/75
== END 2022-06-08 14:28 | disposition home or self-care (01) ==
LOC: EDUNIT# 10:36 → ER 10:37
DX: G43.909 Migraine, unspecified, not intractable, without status migrainosus (principal); J44.9 Chronic obstructive pulmonary disease, unspecified; E66.01 Morbid (severe) obesity due to excess calories; F17.210 Nicotine dependence, cigarettes, uncomplicated; F17.290 Nicotine dependence, other tobacco product, uncomplicated; Z68.41 Body mass index [BMI] 40.0-44.9, adult; Z20.822 Contact with and (suspected) exposure to COVID-19; Z99.81 Dependence on supplemental oxygen
CPT/HCPCS: 70450; 87636

== ENCOUNTER 2022-06-19 01:49 | Emergency (ER) | payer MEDICARE, MEDICAID ==
[~2022-06-19] VITALS: Ht 177 cm; Wt 134.7 kg
[~2022-06-19 01:49] MED LIST changes: -INSU100I29 SQ; +INSU100I30 SQ; +TOPI-241 PO; -TOPI50TA13 PO
[2022-06-19] MEDS ORDERED: ORPHENADRINE 60 MG/2 ML (NORFLEX) AMP (ED ONLY) IM ONE (02:15)
[2022-06-19] MEDS ORDERED: PROCHLORPERAZINE 10 MG/2ML INJ (COMPAZINE) IM ONE (02:15)
[2022-06-19] MEDS ORDERED: diphenhydrAMINE 50 MG/ML INJ (BENADRYL) IM ONE (02:15)
[2022-06-19] MEDS ORDERED: KETOROLAC 60 MG/2 ML VIAL IM ONE (02:15)
--- NOTE | 2022-06-19 02:42 | ED Headache ---
General Chief Complaint: Head/Cervical Problems Stated Complaint: MIGRAINE Nursing Triage Note: Pt presents with c/o migraine headache that started 06/18/22. She reports going to walk in clinic and receiving toradol, phenergan and benadryl. Head ache was better, then returned at approx 1700. 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 Source: patient, [place] [facility] records, old records History of Present Illness Date Seen by Provider: Jun 19, 2022 Time Seen by Provider: 02:02 Initial Comments PT ARRIVES VIA SENIOR CARE TRANSPORTATION / [facility] C/O "MIGRAINE" SINCE THIS MORNING 06/18/22 HEADACHE IS IN FRONTAL AREA/FOREHEAD THIS IS EXACTLY THE SAME HER CHRONIC HEADACHES, WHICH SHE GETS 3-4 TIMES A WEEK, AND IS NO DIFFERENT IN ANY WAY RATES HER PAIN A "9" SHE STATES SHE HAD AN UNKNOWN MEDICATION FOR HER HEADACHE SOMETIME THIS AFTERNOON. SHE ALSO WENT TO [facility] WALK IN CLINIC TODAY AND RECEIVED TORADOL, PHENERGAN AND BENADRYL--STATES IT HELPED FOR A LITTLE WHILE, THEN GOT WORSE AROUND 1700 SHE ALSO HAD TYLENOL AND MOTRIN THIS EVENING, WITHOUT RELIEF. NO VISION CHANGES NO URI SYMPTOMS NO FEVER HAS HAD SOME NAUSEA PT WITH A MULTITUDE OF VISITS FOR VARIOUS COMPLAINTS. MANY FOR CHRONIC PAIN COMPLAINTS. SHE WAS HERE 06/08/22 ALSO FOR HER CHRONIC HEADACHE COMPLAINTS. SHE WAS GIVEN TORADOL, PHENERGAN, BENADRYL AND DILAUDID. PCP: DR. WOLF AT [facility] Allergies and Home Medications Allergies Coded Allergies: buspirone (Verified Allergy, Mild, 02/11/22) Made"legs Shaky" amitriptyline (Verified Allergy, Unknown, 02/11/22) " MAKES ME DO WEIRD THINGS LIKE WALK IN MY SLEEP AND HAVE HALLUCINATIONS." amlodipine (Verified Allergy, Unknown, 02/11/22) Patient Home Medication List Home Medication List Reviewed: Yes Acetaminophen (Tylenol) 325 Mg Tablet, 650 MG PO Q4H PRN for PAIN-MILD (1-4), (Reported) Entered as Reported by: SEAN ARTEAGA on 03/20/21 1008 Albuterol Sulfate (Ventolin Hfa) 1 Puff Puff, 2 PUFF IH Q4H PRN for SHORTNESS OF BREATH, (Reported) Entered as Reported by: SEAN ARTEAGA on 03/20/21 1008 Aspirin (Aspirin EC) 81 Mg Tablet.dr, 81 MG PO DAILY, (Reported) Entered as Reported by: HARSH PARRISH on 11/19/17 1603 Benzonatate (Benzonatate) 100 Mg Capsule, 100 MG PO QID PRN for COUGH, (Reported) Entered as Reported by: DANIELLE RICHARD on 07/31/20 1616 Bumetanide (Bumetanide) 2 Mg Tablet, 2 MG PO 0800,1200, (Reported) Entered as Reported by: SEAN ARTEAGA on 03/20/21 1008 Calcium Carbonate (Calcium Carbonate) 600 Mg Calcium (1500 Mg) Tablet, 600 MG PO BID, (Reported) Entered as Reported by: DANIELLE RICHARD on 02/11/22 100 Carvedilol (Carvedilol) 3.125 Mg Tablet, 3.125 MG PO BID, (Reported) Entered as Reported by: SEAN ARTEAGA on 03/20/21 1008 Cefdinir (Cefdinir) 300 Mg Capsule, 300 MG PO BID Prescribed by: RODY ALDANA on 02/17/22 1122 Cholecalciferol (Vitamin D3) (Vitamin D3) 50 Mcg (2000 Unit) Tab.chew, 50 MCG PO DAILY, (Reported) Entered as Reported by: CARLOS BANSAL on 11/14/21 1048 Clonazepam (Clonazepam) 1 Mg Tablet, 1 MG PO TID, (Reported) Entered as Reported by: CARLOS BANSAL on 11/14/21 104 Diclofenac Sodium (Diclofenac Sodium) 1 % Gel..gram., 2 GM TOP Q8H PRN for PAIN- BREAKTHROUGH, (Reported) Entered as Reported by: DANIELLE RICHARD on 02/11/22 100 Dulaglutide (Trulicity) 0.75 Mg/0.5 Ml Pen.injctr, 0.75 MG SQ MICHA, (Reported) Entered as Reported by: CARLOS BANSAL on 11/14/21 1048 Duloxetine HCl (Duloxetine HCl) 60 Mg Capsule.dr, 60 MG PO DAILY, (Reported) Entered as Reported by: DANIELLE RICHARD on 02/11/22 1003 Fluticasone/Umeclidin/Vilanter (Trelegy Ellipta 100-62.5-25) 100-62.5 Blst.w.dev, 1 EACH IH 1200, (Reported) Entered as Reported by: CARLOS BANSAL on 11/14/21 104 Glimepiride (Glimepiride) 1 Mg Tablet, 1 MG PO DAILY, (Reported) Entered as Reported by: HARSH PARRISH on 04/29/17 1346 Hydralazine HCl (Hydralazine HCl) 10 Mg Tablet, 10 MG PO TID Prescribed by: RODY ALDANA on 02/17/22 112 Insulin Aspart (Novolog Flexpen) 100 Unit/Ml (3 Ml) Solution, 10 UNITS SC WM Prescribed by: RODY ALDANA on 02/17/22 112 Insulin Detemir (Levemir Flextouch) 100 Unit/Ml (3 Ml) Insuln.pen, 25 UNIT SQ BID, (Reported) Entered as Reported by: CARLOS BANSAL on 11/14/21 104 Ipratropium/Albuterol Sulfate (Iprat-Albut 0.5-3(2.5) mg/3 ml) 0.5 Mg-3 Mg (2.5 Mg Base)/3 Ml Ampul.neb, 3 ML IH Q4 -6H PRN for SHORTNESS OF BREATH, (Reported) Entered as Reported by: CARLOS BANSAL on 11/14/21 104 Loperamide HCl (Imodium A-D) 2 Mg Capsule, 2-4 MG PO UD PRN for LOOSE STOOLS, (Reported) Entered as Reported by: DANIELLE RICHARD on 02/11/22 100 Magnesium Oxide (Magnesium Oxide) 400 Mg Magnesium Tablet, 400 MG PO BID, (Reported) Entered as Reported by: DANIELLE RICHARD on 02/11/22 100 Menthol (Biofreeze) 118 Ml Gel..ml., 1 APPLIC TP UD PRN for PAIN-BREAKTHROUGH, (Reported) Entered as Reported by: DANIELLE RICHARD on 12/18/20 112 Methenamine Hippurate (Methenamine Hippurate) 1 Gram Tablet, 1 GM PO BID, (Reported) Entered as Reported by: CARLOS BANSAL on 11/14/21 104 Mirabegron (Myrbetriq) 25 Mg Tab.er.24h, 25 MG PO DAILY, (Reported) Entered as Reported by: DANIELLE RICHARD on 02/11/22 100 Multivitamin/Iron/Folic Acid (Centrum Women Tablet) 1 Each Tablet, 1 EACH PO DAILY, (Reported) Entered as Reported by: DANIELLE RICHARD on 12/18/20 1129 Olanzapine (Olanzapine) 7.5 Mg Tablet, 7.5 MG PO HS, (Reported) Entered as Reported by: DANIELLE RICHARD on 02/11/22 100 Oxybutynin Chloride (Oxybutynin Chloride) 5 Mg Tablet, 5 MG PO BID, (Reported) Entered as Reported by: SEAN ARTEAGA on 03/20/21 100 Pantoprazole Sodium (Pantoprazole Sodium) 40 Mg Tablet.dr, 40 MG PO DAILY, (Reported) Entered as Reported by: SEAN ARTEAGA on 03/20/21 100 Polyethylene Glycol 3350 (Miralax) 17 Gram Powd.pack, 17 GM PO DAILY, (Reported) Entered as Reported by: DANIELLE RICHARD on 02/11/22 100 Potassium Chloride (K-Tab ER) 20 Meq Tablet.er, 20 MEQ PO DAILY, (Reported) Entered as Reported by: CARLOS BANSAL on 11/14/21 104 Prednisone (Prednisone) 10 Mg Tab, 10 MG PO DAILY Prescribed by: RODY ALDANA on 02/17/22 112 Prednisone (Prednisone) 10 Mg Tab.ds.pk, 10 MG PO DAILY Prescribed by: RODY ALDANA on 02/17/22 112 Promethazine HCl (Promethazine HCl) 12.5 Mg Tablet, 12.5-25 MG PO Q6H PRN for NAUSEA/VOMITING-2ND LINE, (Reported) Entered as Reported by: DANIELLE RICHARD on 02/11/22 100 Rizatriptan Benzoate (Rizatriptan) 10 Mg Tablet, 10 MG PO UD PRN for MIGRAINE, (Reported) Entered as Reported by: CARLOS BANSAL on 11/14/21 1048 Rosuvastatin Calcium (Rosuvastatin Calcium) 20 Mg Tablet, 20 MG PO HS, (Reported) Entered as Reported by: SEAN ARTEAGA on 03/20/21 1008 Sodium Chloride (Saline Nasal [place]) 0.65 % [place], 2 SPRAYS NSEACH Q4H PRN for DRY NOSE, (Reported) Entered as Reported by: DANIELLE RICHARD on 02/11/22 1003 Topiramate (Topiramate) 50 Mg Tablet, 50 MG PO BID, (Reported) Entered as Reported by: DANIELLE RICHARD on 02/11/22 1003 Review of Systems Review of Systems Constitutional: no symptoms reported Eyes: No Symptoms Reported Ears, Nose, Mouth, Throat: no symptoms reported Respiratory: no symptoms reported Cardiovascular: no symptoms reported Gastrointestinal: see HPI, nausea Genitourinary: no symptoms reported Musculoskeletal: no symptoms reported Skin: no symptoms reported Psychiatric/Neurological: See HPI, Headache Past Ufxrxrt-Ojhvhf-Efvbbo Hx Immunizations Up To Date Tetanus Booster (TDap): Unknown Influenza Vaccine Up-to-Date: Yes; Up-to-Date First/Initial COVID19 Vaccinat: 04/09/20 Second COVID19 Vaccination Dustin: 04/28/20 Third COVID19 Vaccination Date: 04/09/20 Seasonal Allergies Seasonal Allergies: No Past Medical History Surgery/Hospitalization HX: IDDM,CHF,COPD,ANXIETY,HIGH LIPIDS, acute kidney failure, uti,CONSTIPATION, DIARRHEA, BIPOLAR, HTN, CAD, BRONCHITIS, TANG, GERD EGD/COLONOSCOPY, CARDIAC CATH UPPER AND LOWER DENTURES WITH PATIENT ON ADMISSION Surgeries: Yes (EGD/COLONOSCOPY; CARDIAC CATH 09/18/17--NO INTERVENTION) Cardiac Respiratory: Yes (O2 AT 4L/NC CONTINUOUSLY) Pneumonia, Chronic Bronchitis, Sleep Apnea, COPD Currently Using CPAP: No Currently Using BIPAP: Yes Cardiac: Yes Cardiomyopathy, Chronic Edema/Swelling, Coronary Artery Disease, High Cholesterol, Hypertension Neurological: Yes Headaches /Migraines 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 Disorders: No 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 Disorders: 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 Sexually Transmitted Disease: No HIV/AIDS: No Genitourinary: Yes Bladder Infection Gastrointestinal: Yes (GASTRITIS AND ESOPHAGEAL CANDIDIASIS 04/2017) Gastroesophageal Reflux, Gastrointestinal Bleed, Chronic Constipation, Chronic Diarrhea, Polyps, Esophagitis, Ulcer Musculoskeletal: Yes (chronic shoulder and neck pain--OPIATE DEPENDENT;MINIMALLY AMBULATORY) Degenerate Disk Disease, Arthritis, Chronic Back Pain Endocrine: Yes ( MORBID OBESITY) Diabetes, Insulin dep HEENT: Yes (EDENTULOUS) Cancer: No Psychosocial: Yes (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; POLYSUBSTANCE ABUSE) Sleep Difficulties, Anxiety, Suicide Attempts, Bipolar, Depression Integumentary: No Blood Disorders: Yes (ANEMIA) Adverse Reaction/Blood Tranf: No Family Medical History Cancer 03 MOTHER, Onset:66 (LUNG ) 09 BROTHER (LUNG ) Congestive heart failure 03 FATHER Heart Disease, Cancer SOCIAL HISTORY: -SMOKED 3-4 PPD, NOW VAPES NICOTINE IN SENIOR CARE -ETOH--HISTORY OF USE, CLAIMS NONE IN SENIOR CARE -DRUGS--EXTENSIVE METHAMPHETAMINE AND MARIJUANA USE, INCLUDING IV METHAMPHETAMINE USE, WELL SMOKING IT, IN ADDITION TO SMOKING MARIJUANA; SHE ALSO HAS 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 PAST SURGICAL HISTORY: -EGD'S/COLONOSCOPIES -COLONOSCOPY 11/26/[address] RAMOS: POSTOPERATIVE DIAGNOSIS: Colon polyps. PROCEDURE: Colonoscopy with hot biopsy polypectomy x2 and snare polypectomy x4. -CARDIAC CATH 09/18/2017--NO INTERVENTION -CARDIAC CATH 03/20/[address] GOULD: CONCLUSION: 1. Dilated coronary system with mild ectasia in the LAD, nonobstructive disease 2. Mildly elevated left ventricular end-diastolic pressure DISCUSSION AND RECOMMENDATION: Medical therapy is recommended no intervention is needed Physical Exam Vital Signs Vital Signs - First Documented 06/19/22 01:57 Temp 36.4 Pulse 91 Resp 24 Pulse Ox 97 O2 Delivery Nasal Cannula O2 Flow Rate 4.00 Capillary Refill : Less Than 3 Seconds Height, Weight, BMI Height: 5'9.00" Weight: 197lbs. 0.9oz. [id number]; 42.00 BMI Method:Stated General Appearance: WD/WN, no apparent distress, obese, other (PT AMBULATES IN WITH A WALKER AND O2 TANK. SHE HAS HER NORMAL PUFFED CHEEK BREATHING.) HEENT: PERRL/EOMI, normal ENT inspection, TMs normal, pharynx normal, other (NO FRONTAL TENDERNESS) Neck: non-tender, full range of motion, normal inspection Cardiovascular: regular rate, rhythm, no murmur Respiratory: normal breath sounds Extremities: normal inspection, no pedal edema, no calf tenderness, normal capillary refill Psychiatric: alert, oriented x 3 Crainal Nerves: normal speech, PERRL Coordination/Gait: normal gait Motor/Sensory: no motor deficit, no sensory deficit Skin: normal color, warm/dry Progress/Results/Core Measures Results/Orders My Orders Orders - TIMOTHY HUGHES DO Ketorolac Injection (Toradol Injection) (06/19/22 02:15) Orphenadrine Inj (Ed Only) (Norflex Inje (06/19/22 02:15) Prochlorperazine Injection (Compazine In (06/19/22 02:15) Diphenhydramine Injection (Benadryl Inje (06/19/22 02:15) Medications Given in ED Current Medications Medications Dose Ordered Sig/Vladimir Route Start Time Stop Time Status Last Admin Dose Admin Diphenhydramine HCl 50 mg ONCE ONCE IM 06/19/22 02:15 06/19/22 02:16 DC 06/19/22 02:24 50 MG Ketorolac Tromethamine 60 mg ONCE ONCE IM 06/19/22 02:15 06/19/22 02:16 DC 06/19/22 02:30 60 MG Orphenadrine Citrate 60 mg ONCE ONCE IM 06/19/22 02:15 06/19/22 02:16 DC 06/19/22 02:29 60 MG Prochlorperazine Edisylate 10 mg ONCE ONCE IM 06/19/22 02:15 06/19/22 02:16 DC 06/19/22 02:24 10 MG Vital Signs/I&O 06/19/22 01:57 Temp 36.4 Pulse 91 Resp 24 B/P (MAP) Pulse Ox 97 O2 Delivery Nasal Cannula O2 Flow Rate 4.00 Progress Progress Note : Progress Note GIVEN: -TORADOL -NORFLEX -COMPAZINE -BENADRYL REVIEWED PRIOR RECORDS INCLUDING ER VISITS, ADMITS/H&P'S/CONSULTS/DISCHARGE SUMMARIES, TESTS/ PROCEDURES NO DETERIORATION IN PT'S CONDITION DURING ER STAY Departure Impression Primary Impression: Chronic headaches Disposition: 03 XFER SNF Condition: Stable Departure-Patient Inst. Decision time for Depature: 02:45 Referrals: [facility] (PCP/Family) Primary Care Physician Patient Instructions: Headache, Adult ED Add. Discharge Instructions: TAKE YOUR REGULAR MEDICATIONS PRESCRIBED FOLLOW UP WITH YOUR DR TOMORROW IF NO BETTER All discharge instructions reviewed with patient and/or family. Voiced understanding. TIMOTHY HUGHES DO Jun 19, 2022 02:41
== END 2022-06-19 03:48 ==
LOC: EDUNIT# 01:49 → ER 01:57
DX: R51.9 Headache, unspecified (principal); G89.29 Other chronic pain; E66.01 Morbid (severe) obesity due to excess calories; G47.30 Sleep apnea, unspecified; F17.210 Nicotine dependence, cigarettes, uncomplicated; Z68.41 Body mass index [BMI] 40.0-44.9, adult; Z99.89 Dependence on other enabling machines and devices
CPT/HCPCS: 99284

== ENCOUNTER 2022-06-27 19:49 | Emergency (ER) | payer MEDICARE, MEDICAID ==
[~2022-06-27] VITALS: Ht 175.2 cm; Wt 133.8 kg
[2022-06-27] MEDS ORDERED: NS IV 1000 ML 1,000 ML IV STA (20:18)
--- NOTE | 2022-06-27 20:27 | ED Headache ---
General Chief Complaint: Head/Cervical Problems Stated Complaint: MIGRAINE Nursing Triage Note: PT FROM [facility] AMB TO [facility] 8 WITH CC OF MIGRAINE X3DAYS. PT STATES THAT SHE TOOK MEDICATION FOR TANG AND HAS HAD NO RELIEF. Source: patient Exam Limitations: no limitations History of Present Illness Date Seen by Provider: Jun 27, 2022 Time Seen by Provider: 20:25 Initial Comments Patient is a 57-year-old female presents to ED with right-sided head pain. Head pain over the past 3 days. She describes the head pain as a jackhammer going off in her head. History of migraines since she was in her 20s. Similar type pain with her other previous migraines. She has been taking sumatriptan, Excedrin Migraine, ibuprofen and Tylenol without much improvement. She reports nausea with photo sensitivity. She denies vomiting, unilateral muscle weakness or sensory changes, facial droop, chest pain, shortness of breath, cough, fever or neck pain. Patient requesting migraine cocktail Allergies and Home Medications Allergies Coded Allergies: buspirone (Verified Allergy, Mild, 02/11/22) Made"legs Shaky" amitriptyline (Verified Allergy, Unknown, 02/11/22) " MAKES ME DO WEIRD THINGS LIKE WALK IN MY SLEEP AND HAVE HALLUCINATIONS." amlodipine (Verified Allergy, Unknown, 02/11/22) Patient Home Medication List Home Medication List Reviewed: Yes Acetaminophen (Tylenol) 325 Mg Tablet, 650 MG PO Q4H PRN for PAIN-MILD (1-4), (Reported) Entered as Reported by: SEAN ARTEAGA on 03/20/21 1008 Albuterol Sulfate (Ventolin Hfa) 1 Puff Puff, 2 PUFF IH Q4H PRN for SHORTNESS OF BREATH, (Reported) Entered as Reported by: SEAN ARTEAGA on 03/20/21 1008 Aspirin (Aspirin EC) 81 Mg Tablet.dr, 81 MG PO DAILY, (Reported) Entered as Reported by: HARSH PARRISH on 11/19/17 1603 Benzonatate (Benzonatate) 100 Mg Capsule, 100 MG PO QID PRN for COUGH, (Reported) Entered as Reported by: DANIELLE RICHARD on 07/31/20 1616 Bumetanide (Bumetanide) 2 Mg Tablet, 2 MG PO 0800,1200, (Reported) Entered as Reported by: SEAN ARTEAGA on 03/20/21 1008 Calcium Carbonate (Calcium Carbonate) 600 Mg Calcium (1500 Mg) Tablet, 600 MG PO BID, (Reported) Entered as Reported by: DANIELLE RICHARD on 02/11/22 100 Carvedilol (Carvedilol) 3.125 Mg Tablet, 3.125 MG PO BID, (Reported) Entered as Reported by: SEAN ARTEAGA on 03/20/21 100 Cefdinir (Cefdinir) 300 Mg Capsule, 300 MG PO BID Prescribed by: RODY ALDANA on 02/17/22 1122 Cholecalciferol (Vitamin D3) (Vitamin D3) 50 Mcg (2000 Unit) Tab.chew, 50 MCG PO DAILY, (Reported) Entered as Reported by: CARLOS BANSAL on 11/14/21 104 Clonazepam (Clonazepam) 1 Mg Tablet, 1 MG PO TID, (Reported) Entered as Reported by: CARLOS BANSAL on 11/14/21 104 Diclofenac Sodium (Diclofenac Sodium) 1 % Gel..gram., 2 GM TOP Q8H PRN for PAIN-BREAKTHROUGH, (Reported) Entered as Reported by: DANIELLE RICHARD on 02/11/22 100 Dulaglutide (Trulicity) 0.75 Mg/0.5 Ml Pen.injctr, 0.75 MG SQ MICHA, (Reported) Entered as Reported by: CARLOS BANSAL on 11/14/21 104 Duloxetine HCl (Duloxetine HCl) 60 Mg Capsule.dr, 60 MG PO DAILY, (Reported) Entered as Reported by: DANIELLE RICHARD on 02/11/22 100 Fluticasone/Umeclidin/Vilanter (Trelegy Ellipta 100-62.5-25) 100-62.5 Blst.w.dev, 1 EACH IH 1200, (Reported) Entered as Reported by: CARLOS BANSAL on 11/14/21 104 Glimepiride (Glimepiride) 1 Mg Tablet, 1 MG PO DAILY, (Reported) Entered as Reported by: HARSH PARRISH on 04/29/17 1346 Hydralazine HCl (Hydralazine HCl) 10 Mg Tablet, 10 MG PO TID Prescribed by: RODY ALDANA on 02/17/22 112 Insulin Aspart (Novolog Flexpen) 100 Unit/Ml (3 Ml) Solution, 10 UNITS SC WM Prescribed by: RODY ALDANA on 02/17/22 112 Insulin Detemir (Levemir Flextouch) 100 Unit/Ml (3 Ml) Insuln.pen, 25 UNIT SQ BID, (Reported) Entered as Reported by: CARLOS BANSAL on 11/14/21 104 Ipratropium/Albuterol Sulfate (Iprat-Albut 0.5-3(2.5) mg/3 ml) 0.5 Mg-3 Mg (2.5 Mg Base)/3 Ml Ampul.neb, 3 ML IH Q4 -6H PRN for SHORTNESS OF BREATH, (Reported) Entered as Reported by: CARLOS BANSAL on 11/14/21 104 Loperamide HCl (Imodium A-D) 2 Mg Capsule, 2-4 MG PO UD PRN for LOOSE STOOLS, (Reported) Entered as Reported by: DANIELLE RICHARD on 02/11/22 100 Magnesium Oxide (Magnesium Oxide) 400 Mg Magnesium Tablet, 400 MG PO BID, (Reported) Entered as Reported by: DANIELLE RICHARD on 02/11/22 100 Menthol (Biofreeze) 118 Ml Gel..ml., 1 APPLIC TP UD PRN for PAIN-BREAKTHROUGH, (Reported) Entered as Reported by: DANIELLE RICHARD on 12/18/20 112 Methenamine Hippurate (Methenamine Hippurate) 1 Gram Tablet, 1 GM PO BID, (Reported) Entered as Reported by: CARLOS BANSAL on 11/14/21 104 Mirabegron (Myrbetriq) 25 Mg Tab.er.24h, 25 MG PO DAILY, (Reported) Entered as Reported by: DANIELLE RICHARD on 02/11/22 1003 Multivitamin/Iron/Folic Acid (Centrum Women Tablet) 1 Each Tablet, 1 EACH PO DAILY, (Reported) Entered as Reported by: DANIELLE RICHARD on 12/18/20 112 Olanzapine (Olanzapine) 7.5 Mg Tablet, 7.5 MG PO HS, (Reported) Entered as Reported by: DANIELLE RICHARD on 02/11/22 1003 Oxybutynin Chloride (Oxybutynin Chloride) 5 Mg Tablet, 5 MG PO BID, (Reported) Entered as Reported by: SEAN ARTEAGA on 03/20/21 100 Pantoprazole Sodium (Pantoprazole Sodium) 40 Mg Tablet.dr, 40 MG PO DAILY, (Reported) Entered as Reported by: SEAN ARTEAGA on 03/20/211007 Polyethylene Glycol 3350 (Miralax) 17 Gram Powd.pack, 17 GM PO DAILY, (Reported) Entered as Reported by: DANIELLE RICHARD on 02/11/22 100 Potassium Chloride (K-Tab ER) 20 Meq Tablet.er, 20 MEQ PO DAILY, (Reported) Entered as Reported by: CARLOS BANSAL on 11/14/21 104 Prednisone (Prednisone) 10 Mg Tab, 10 MG PO DAILY Prescribed by: RODY ALDANA on 02/17/221121 Prednisone (Prednisone) 10 Mg Tab.ds.pk, 10 MG PO DAILY Prescribed by: RODY ALDANA on 02/17/221121 Promethazine HCl (Promethazine HCl) 12.5 Mg Tablet, 12.5-25 MG PO Q6H PRN for NAUSEA/VOMITING-2ND LINE, (Reported) Entered as Reported by: DANIELLE RICHARD on 02/11/221002 Rizatriptan Benzoate (Rizatriptan) 10 Mg Tablet, 10 MG PO UD PRN for MIGRAINE, (Reported) Entered as Reported by: CARLOS BANSAL on 11/14/21 104 Rosuvastatin Calcium (Rosuvastatin Calcium) 20 Mg Tablet, 20 MG PO HS, (Reported) Entered as Reported by: SEAN ARTEAGA on 03/20/211007 Sodium Chloride (Saline Nasal Monarch) 0.65 % Monarch, 2 SPRAYS NSEACH Q4H PRN for DRY NOSE, (Reported) Entered as Reported by: DANIELLE RICHARD on 02/11/22 100 Topiramate (Topiramate) 50 Mg Tablet, 50 MG PO BID, (Reported) Entered as Reported by: DANIELLE RICHARD on 02/11/221002 Review of Systems Review of Systems Constitutional: No chills, No diaphoresis, No malaise, No weakness Eyes: Denies Blurred Vision, Denies Drainage, Denies Decreased Acuity Ears, Nose, Mouth, Throat: denies ear pain, denies ear discharge Respiratory: No cough, No short of breath Cardiovascular: No chest pain Gastrointestinal: No abdominal pain, No diarrhea, No nausea Genitourinary: No decreased output, No discharge Musculoskeletal: No back pain, No joint pain Skin: No change in color, No change in hair/nails Psychiatric/Neurological: Headache All Other Systems Reviewed Negative Unless Noted: Yes Past Ycqgckz-Rtiwky-Cweloy Hx Patient Social History Tobacco Use?: Yes Use of E-Cig and/or Vaping dev: Yes E-Cig or Vaping type used: Nicotine Substance use?: No Alcohol Use?: No Immunizations Up To Date Tetanus Booster (TDap): Unknown First/Initial COVID19 Vaccinat: 04/09/20 Second COVID19 Vaccination Dustin: 04/28/20 Third COVID19 Vaccination Date: 04/09/20 Seasonal Allergies Seasonal Allergies: No Past Medical History Surgery/Hospitalization HX: IDDM,CHF,COPD,ANXIETY,HIGH LIPIDS, acute kidney failure, uti,CONSTIPATION, DIARRHEA, BIPOLAR, HTN, CAD, BRONCHITIS, TANG, GERD EGD/COLONOSCOPY, CARDIAC CATH UPPER AND LOWER DENTURES WITH PATIENT ON ADMISSION Surgeries: Yes (EGD/COLONOSCOPY; CARDIAC CATH 09/18/17--NO INTERVENTION) Cardiac Respiratory: Yes (O2 AT 4L/NC CONTINUOUSLY) Pneumonia, Chronic Bronchitis, Sleep Apnea, COPD Currently Using CPAP: No Currently Using BIPAP: Yes Cardiac: Yes Cardiomyopathy, Chronic Edema/Swelling, Coronary Artery Disease, High Cholesterol, Hypertension Neurological: Yes Headaches /Migraines 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 Disorders: No 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 Disorders: Denies [employer] History: Menopausal Sexually Transmitted Disease: No HIV/AIDS: No Genitourinary: Yes Bladder Infection Gastrointestinal: Yes (GASTRITIS AND ESOPHAGEAL CANDIDIASIS 04/2017) Gastroesophageal Reflux, Gastrointestinal Bleed, Chronic Constipation, Chronic Diarrhea, Polyps, Esophagitis, Ulcer Musculoskeletal: Yes (chronic shoulder and neck pain--OPIATE DEPENDENT;MINIMALLY AMBULATORY) Degenerate Disk Disease, Arthritis, Chronic Back Pain Endocrine: Yes ( MORBID OBESITY) Diabetes, Insulin dep HEENT: Yes (EDENTULOUS) Cancer: No Psychosocial: Yes (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; POLYSUBSTANCE ABUSE) Sleep Difficulties, Anxiety, Suicide Attempts, Bipolar, Depression Integumentary: No Blood Disorders: Yes (ANEMIA) Adverse Reaction/Blood Tranf: No Family Medical History Cancer 03 MOTHER, Onset:66 (LUNG ) 09 BROTHER (LUNG ) Congestive heart failure 03 FATHER Heart Disease, Cancer SOCIAL HISTORY: -SMOKED 3-4 PPD, NOW VAPES NICOTINE IN [facility] -ETOH--HISTORY OF USE, CLAIMS NONE IN [facility] -DRUGS--EXTENSIVE METHAMPHETAMINE AND MARIJUANA USE, INCLUDING IV METHAMPHETAMINE USE, WELL SMOKING IT, IN ADDITION TO SMOKING MARIJUANA; SHE ALSO HAS 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 PAST SURGICAL HISTORY: -EGD'S/COLONOSCOPIES -COLONOSCOPY 11/26/[address] RAMOS: POSTOPERATIVE DIAGNOSIS: Colon polyps. PROCEDURE: Colonoscopy with hot biopsy polypectomy x2 and snare polypectomy x4. -CARDIAC CATH 09/18/2017--NO INTERVENTION -CARDIAC CATH 03/20/[address] GOULD: CONCLUSION: 1. Dilated coronary system with mild ectasia in the LAD, nonobstructive disease 2. Mildly elevated left ventricular end-diastolic pressure DISCUSSION AND RECOMMENDATION: Medical therapy is recommended no intervention is needed Physical Exam Vital Signs Vital Signs - First Documented 06/27/22 06/27/22 19:55 20:10 Temp 36.6 Pulse 104 B/P (MAP) 96/83 (87) Pulse Ox 95 O2 Delivery Room Air O2 Flow Rate 4.00 Capillary Refill : Height, Weight, BMI Height: 5'9.00" Weight: 197lbs. 0.9oz. 89.091866vl; 43.00 BMI Method:Stated General Appearance: WD/WN, no apparent distress HEENT: PERRL/EOMI, normal ENT inspection, TMs normal, pharynx normal Neck: non-tender, full range of motion, supple, normal inspection Cardiovascular: regular rate, rhythm, no edema, no gallop Respiratory: chest non-tender, lungs clear, normal breath sounds, no respiratory distress, no accessory muscle use Gastrointestinal: normal bowel sounds, non tender, soft, no organomegaly, no pulsatile mass Back: normal inspection, no CVA tenderness, no vertebral tenderness Extremities: normal range of motion, non-tender, normal inspection, no pedal edema Crainal Nerves: normal hearing, normal speech, PERRL Coordination/Gait: normal finger to nose Motor/Sensory: no motor deficit, no sensory deficit, no pronator drift Skin: normal color, warm/dry Progress/Results/Core Measures Results/Orders My Orders Orders - SUNITHA PATEL Ketorolac Injection (Toradol Injection) (06/27/22 20:30) Prochlorperazine Injection (Compazine In (06/27/22 20:30) Diphenhydramine Injection (Benadryl Inje (06/27/22 20:30) Ns Iv 1000 Ml (Sodium Chloride 0.9%) (06/27/22 20:18) Morphine Injection (Morphine Injection (06/27/22 21:45) Medications Given in ED Current Medications Medications Dose Ordered Sig/Vladimir Route Start Time Stop Time Status Last Admin Dose Admin Diphenhydramine HCl 25 mg ONCE ONCE IVP 06/27/22 20:30 06/27/22 20:31 DC 06/27/22 20:34 25 MG Ketorolac Tromethamine 30 mg ONCE ONCE IVP 06/27/22 20:30 06/27/22 20:31 DC 06/27/22 20:34 30 MG Morphine Sulfate 4 mg ONCE ONCE IVP 06/27/22 21:45 06/27/22 21:46 DC 06/27/22 21:46 4 MG Prochlorperazine Edisylate 10 mg ONCE ONCE IV 06/27/22 20:30 06/27/22 20:31 DC 06/27/22 20:34 10 MG Vital Signs/I&O 06/27/22 06/27/22 06/27/22 19:55 20:10 22:27 Temp 36.6 Pulse 104 91 B/P (MAP) 96/83 (87) 139/97 Pulse Ox 95 97 O2 Delivery Room Air Nasal Cannula Nasal Cannula O2 Flow Rate 4.00 4.00 Blood Pressure Mean: 87 Departure Communication (PCP) Reviewed previous ER visits, H&P, lab testing. History of migraines. Head pain for the past 3 days located right temporal head. Rates pain 8 out of 10. Photophobia with nausea. Today's head pain feels very similar to her previous migraines. Denies the worst headache of her life. She is not hypertensive. patient without any focal neural deficits. No neurological red flag findings needing further imaging or evaluation at this time. No recent URI symptoms. She had no meningeal signs. No visual changes. Failed outpatient treatment with sumatriptan, Excedrin Migraine and Tylenol. Due to same presentation of her previous migraine no further imaging was needed at this time. Patient was given a migraine cocktail of Toradol, Benadryl, liter fluid and Compazine. Symptoms did improve significantly. Recheck of patient's symptoms 2 hours postm edication with significant improvement. She was ready to be discharged back to PICC care and rehab. Continue with your pain regiment that you have at home. If any worsening symptoms return back to ED. Impression Primary Impression: Migraine Disposition: HOME, SELF-CARE Condition: Stable Departure-Patient Inst. Decision time for Depature: 21:58 Referrals: [facility] [place] Primary Care Physician Patient Instructions: Migraines in Adults Add. Discharge Instructions: Follow-up with your primary care physician for further evaluation. All discharge instructions reviewed with patient and/or family. Voiced understanding. SUNITHA PATEL Jun 27, 2022 20:27
[2022-06-27] MEDS ORDERED: KETOROLAC 30 MG/ML VIAL IVP ONE (20:30)
[2022-06-27] MEDS ORDERED: PROCHLORPERAZINE 10 MG/2ML INJ (COMPAZINE) IV ONE (20:30)
[2022-06-27] MEDS ORDERED: diphenhydrAMINE 50 MG/ML INJ (BENADRYL) IVP ONE (20:30)
[2022-06-27] MEDS ORDERED: morphine INJ 10 MG/ML 1ML (SYR OR VIAL) IVP ONE (21:45)
[2022-06-27 22:27] VITALS: BP 139/97
== END 2022-06-27 22:27 | disposition home or self-care (01) ==
LOC: EDUNIT# 19:49 → ER 19:50
DX: G43.909 Migraine, unspecified, not intractable, without status migrainosus (principal); J44.9 Chronic obstructive pulmonary disease, unspecified; E66.01 Morbid (severe) obesity due to excess calories; F17.210 Nicotine dependence, cigarettes, uncomplicated; F17.290 Nicotine dependence, other tobacco product, uncomplicated; Z68.41 Body mass index [BMI] 40.0-44.9, adult; Z99.81 Dependence on supplemental oxygen

== ENCOUNTER 2022-08-05 19:03 | Emergency (ER) | payer MEDICARE, MEDICAID ==
[~2022-08-05] VITALS: Ht 167 cm; Wt 99.7 kg
[2022-08-05 19:34] LABS: BASOPHILS % (AUTO) 0 % (0-10); EOSINOPHILS # (AUTO) 0.1 10^3/uL (0.0-0.3); EOSINOPHILS % (AUTO) 1 % (0-10); HEMATOCRIT 36 % (35-52); HEMOGLOBIN 10.9 g/dL (11.5-16.0); LYMPHOCYTES # (AUTO) 2.2 10^3/uL (1.0-4.0); LYMPHOCYTES % (AUTO) 18 % (12-44); MEAN CORPUSCULAR HEMOGLOBIN 25 pg (25-34); MEAN CORPUSCULAR HGB CONC 31 g/dL (32-36); MEAN CORPUSCULAR VOLUME 81 fL (80-99); MEAN PLATELET VOLUME 10.2 fL (9.0-12.2); MONOCYTES # (AUTO) 0.7 10^3/uL (0.0-1.0); MONOCYTES % (AUTO) 6 % (0-12); NEUTROPHILS # (AUTO) 8.9 10^3/uL (1.8-7.8); NEUTROPHILS % (AUTO) 74 % (42-75); PLATELET COUNT 311 10^3/uL (130-400)
[2022-08-05] MEDS ORDERED: morphine INJ 10 MG/ML 1ML (SYR OR VIAL) IVP STA (19:35)
--- NOTE | 2022-08-05 19:47 | Diagnostic Imaging Report ---
INDICATION: Chest pain. Time of Exam: 7:26 PM Correlation is made with prior chest from 06/04/2022. Heart size is stable. Lungs appear clear. Left base is somewhat obscured due to portable technique and the heart. No effusion or pneumothorax. IMPRESSION: Stable chest. No acute cardiopulmonary process is detected. Dictated by: Dictated on workstation # [id number]
[2022-08-05 20:07] LABS: ALANINE AMINOTRANSFERASE 18 U/L (0-55); ALBUMIN 3.8 GM/DL (3.2-4.5); ALKALINE PHOSPHATASE 105 U/L (40-136); BILIRUBIN,TOTAL 0.2 MG/DL (0.1-1.0); BUN/CREATININE RATIO 8; CARBON DIOXIDE 25 MMOL/L (21-32); CHLORIDE 102 MMOL/L (98-107); CREATININE SERUM 1.28 MG/DL (0.60-1.30); GFR ESTIMATED 49; GLUCOSE 182 MG/DL (70-105); POTASSIUM 3.6 MMOL/L (3.6-5.0); SODIUM 140 MMOL/L (135-145)
--- NOTE | 2022-08-05 20:32 | ED Chest Pain ---
General Chief Complaint: Chest Pain Stated Complaint: CHEST PAIN Nursing Triage Note: PATIENT BROUGHT BY EMS WITH CHEST PAIN THAT STARTED YESTERDAY. PATIENT STATES RADIATES ACROSS CHEST, LEFT SHOULDER. PATIENT COPD AND WEARS OXYGEN. Source: patient, residential records, old records Exam Limitations: no limitations History of Present Illness Date Seen by Provider: August 05, 2022 Time Seen by Provider: 19:05 Initial Comments This 57-year-old woman with significant COPD presents to the emergency room with persistent chest pain since last night. She is a resident of [facility]. The pain is sharp and stabbing in nature. It is worsened with deep breathing. She has had no increasing cough or fever. She has no history of coronary artery disease. She does have history of CHF. She has no personal history of pulmonary embolus. She is stable on 5 L nasal cannula. She also complains of headache for which she took naproxen around 1700. It does not seem to have helped her chest pain or headache. Allergies and Home Medications Allergies Coded Allergies: buspirone (Verified Allergy, Mild, 02/11/22) Made"legs Shaky" amitriptyline (Verified Allergy, Unknown, 02/11/22) " MAKES ME DO WEIRD THINGS LIKE WALK IN MY SLEEP AND HAVE HALLUCINATIONS." amlodipine (Verified Allergy, Unknown, 02/11/22) Patient Home Medication List Home Medication List Reviewed: Yes Acetaminophen (Tylenol) 325 Mg Tablet, 650 MG PO Q4H PRN for PAIN-MILD (1-4), (Reported) Entered as Reported by: SEAN ARTEAGA on 03/20/21 1008 Albuterol Sulfate (Ventolin Hfa) 1 Puff Puff, 2 PUFF IH Q4H PRN for SHORTNESS OF BREATH, (Reported) Entered as Reported by: SEAN ARTEAGA on 03/20/21 1008 Aspirin (Aspirin EC) 81 Mg Tablet.dr, 81 MG PO DAILY, (Reported) Entered as Reported by: HARSH PARRISH on 11/19/17 1603 Benzonatate (Benzonatate) 100 Mg Capsule, 100 MG PO QID PRN for COUGH, (Reported) Entered as Reported by: DANIELLE RICHARD on 07/31/20 1616 Bumetanide (Bumetanide) 2 Mg Tablet, 2 MG PO 0800,1200, (Reported) Entered as Reported by: SEAN ARTEAGA on 03/20/21 1008 Calcium Carbonate (Calcium Carbonate) 600 Mg Calcium (1500 Mg) Tablet, 600 MG PO BID, (Reported) Entered as Reported by: DANIELLE RICHARD on 02/11/22 100 Carvedilol (Carvedilol) 3.125 Mg Tablet, 3.125 MG PO BID, (Reported) Entered as Reported by: SEAN ARTEAGA on 03/20/21 100 Cefdinir (Cefdinir) 300 Mg Capsule, 300 MG PO BID Prescribed by: RODY ALDANA on 02/17/22 1122 Cholecalciferol (Vitamin D3) (Vitamin D3) 50 Mcg (2000 Unit) Tab.chew, 50 MCG PO DAILY, (Reported) Entered as Reported by: CARLOS BANSAL on 11/14/21 104 Clonazepam (Clonazepam) 1 Mg Tablet, 1 MG PO TID, (Reported) Entered as Reported by: CARLOS BANSAL on 11/14/21 104 Diclofenac Sodium (Diclofenac Sodium) 1 % Gel..gram., 2 GM TOP Q8H PRN for PAIN- BREAKTHROUGH, (Reported) Entered as Reported by: DANIELLE RICHARD on 02/11/22 100 Dulaglutide (Trulicity) 0.75 Mg/0.5 Ml Pen.injctr, 0.75 MG SQ MICHA, (Reported) Entered as Reported by: CARLOS BANSAL on 11/14/21 104 Duloxetine HCl (Duloxetine HCl) 60 Mg Capsule.dr, 60 MG PO DAILY, (Reported) Entered as Reported by: DANIELLE RICHADR on 02/11/22 100 Fluticasone/Umeclidin/Vilanter (Trelegy Ellipta 100-62.5-25) 100-62.5 Blst.w.dev, 1 EACH IH 1200, (Reported) Entered as Reported by: CARLOS BANSAL on 11/14/21 104 Glimepiride (Glimepiride) 1 Mg Tablet, 1 MG PO DAILY, (Reported) Entered as Reported by: HARSH PARRISH on 04/29/17 1346 Hydralazine HCl (Hydralazine HCl) 10 Mg Tablet, 10 MG PO TID Prescribed by: RODY ALDANA on 02/17/22 112 Insulin Aspart (Novolog Flexpen) 100 Unit/Ml (3 Ml) Solution, 10 UNITS SC WM Prescribed by: RODY ALDANA on 02/17/22 112 Insulin Detemir (Levemir Flextouch) 100 Unit/Ml (3 Ml) Insuln.pen, 25 UNIT SQ BID, (Reported) Entered as Reported by: CARLOS BANSAL on 11/14/21 104 Ipratropium/Albuterol Sulfate (Iprat-Albut 0.5-3(2.5) mg/3 ml) 0.5 Mg-3 Mg (2.5 Mg Base)/3 Ml Ampul.neb, 3 ML IH Q4 -6H PRN for SHORTNESS OF BREATH, (Reported) Entered as Reported by: CARLOS BANSAL on 11/14/21 104 Loperamide HCl (Imodium A-D) 2 Mg Capsule, 2-4 MG PO UD PRN for LOOSE STOOLS, (Reported) Entered as Reported by: DANIELLE RICHARD on 02/11/22 100 Magnesium Oxide (Magnesium Oxide) 400 Mg Magnesium Tablet, 400 MG PO BID, (Reported) Entered as Reported by: DANIELLE RICHARD on 02/11/22 100 Menthol (Biofreeze) 118 Ml Gel..ml., 1 APPLIC TP UD PRN for PAIN-BREAKTHROUGH, (Reported) Entered as Reported by: DANIELLE RICHARD on 12/18/20 112 Methenamine Hippurate (Methenamine Hippurate) 1 Gram Tablet, 1 GM PO BID, (Reported) Entered as Reported by: CARLOS BANSAL on 11/14/21 104 Mirabegron (Myrbetriq) 25 Mg Tab.er.24h, 25 MG PO DAILY, (Reported) Entered as Reported by: DANIELLE RICHARD on 02/11/22 1003 Multivitamin/Iron/Folic Acid (Centrum Women Tablet) 1 Each Tablet, 1 EACH PO DAILY, (Reported) Entered as Reported by: DANIELLE RICHARD on 12/18/20 112 Olanzapine (Olanzapine) 7.5 Mg Tablet, 7.5 MG PO HS, (Reported) Entered as Reported by: DANIELLE RICHARD on 02/11/22 1003 Oxybutynin Chloride (Oxybutynin Chloride) 5 Mg Tablet, 5 MG PO BID, (Reported) Entered as Reported by: SEAN ARTEAGA on 03/20/21 100 Pantoprazole Sodium (Pantoprazole Sodium) 40 Mg Tablet.dr, 40 MG PO DAILY, (Reported) Entered as Reported by: SEAN ARTEAGA on 03/20/211007 Polyethylene Glycol 3350 (Miralax) 17 Gram Powd.pack, 17 GM PO DAILY, (Reported) Entered as Reported by: DANIELLE RICHARD on 02/11/22 100 Potassium Chloride (K-Tab ER) 20 Meq Tablet.er, 20 MEQ PO DAILY, (Reported) Entered as Reported by: CARLOS BANSAL on 11/14/21 104 Prednisone (Prednisone) 10 Mg Tab, 10 MG PO DAILY Prescribed by: RODY ALDANA on 02/17/221121 Prednisone (Prednisone) 10 Mg Tab.ds.pk, 10 MG PO DAILY Prescribed by: RODY ALDANA on 02/17/221121 Promethazine HCl (Promethazine HCl) 12.5 Mg Tablet, 12.5-25 MG PO Q6H PRN for NAUSEA/VOMITING-2ND LINE, (Reported) Entered as Reported by: DANIELLE RICHARD on 02/11/221002 Rizatriptan Benzoate (Rizatriptan) 10 Mg Tablet, 10 MG PO UD PRN for MIGRAINE, (Reported) Entered as Reported by: CARLOS BANSAL on 11/14/211047 Rosuvastatin Calcium (Rosuvastatin Calcium) 20 Mg Tablet, 20 MG PO HS, (Reported) Entered as Reported by: SEAN ARTEAGA on 03/20/211007 Sodium Chloride (Saline Nasal Miramonte) 0.65 % [place]te, 2 SPRAYS NSEACH Q4H PRN for DRY NOSE, (Reported) Entered as Reported by: DANIELLE RICHARD on 02/11/221002 Topiramate (Topiramate) 50 Mg Tablet, 50 MG PO BID, (Reported) Entered as Reported by: DANIELLE RICHARD on 02/11/221002 Review of Systems Review of Systems Constitutional: no symptoms reported EENTM: No Symptoms Reported Respiratory: See HPI Cardiovascular: See HPI Gastrointestinal: No Symptoms Reported Genitourinary: No Symptoms Reported Musculoskeletal: see HPI Skin: no symptoms reported Psychiatric/Neurological: See HPI Endocrine: No Symptoms Reported Hematologic/Lymphatic: No Symptoms Reported Past Khxhazy-Fvdcsp-Diajej Hx Patient Social History Tobacco Use?: No Smoking Status: Former Smoker Use of E-Cig and/or Vaping dev: Yes E-Cig or Vaping type used: Nicotine Use of E-Cig and/or Vaping Greg: Current Everyday User Immunizations Up To Date Tetanus Booster (TDap): Unknown Influenza Vaccine Up-to-Date: Yes; Up-to-Date First/Initial COVID19 Vaccinat: 04/09/20 Second COVID19 Vaccination Dustin: 04/28/20 Third COVID19 Vaccination Date: 04/09/20 Seasonal Allergies Seasonal Allergies: No Past Medical History Surgery/Hospitalization HX: IDDM,CHF,COPD,ANXIETY,HIGH LIPIDS, acute kidney failure, uti,CONSTIPATION, DIARRHEA, BIPOLAR, HTN, CAD, BRONCHITIS, TANG, GERD EGD/COLONOSCOPY, CARDIAC CATH UPPER AND LOWER DENTURES WITH PATIENT ON ADMISSION Surgeries: Yes (EGD/COLONOSCOPY; CARDIAC CATH 09/18/17--NO INTERVENTION) Cardiac Respiratory: Yes (O2 AT 4L/NC CONTINUOUSLY) Pneumonia, Chronic Bronchitis, Sleep Apnea, COPD Currently Using CPAP: No Currently Using BIPAP: Yes Cardiac: Yes Cardiomyopathy, Chronic Edema/Swelling, Coronary Artery Disease, High Cholest raj, Hypertension Neurological: Yes Headaches /Migraines 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 Disorders: No 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 Disorders: 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 Sexually Transmitted Disease: No HIV/AIDS: No Genitourinary: Yes Bladder Infection Gastrointestinal: Yes (GASTRITIS AND ESOPHAGEAL CANDIDIASIS 04/2017) Gastroesophageal Reflux, Gastrointestinal Bleed, Chronic Constipation, Chronic Diarrhea, Polyps, Esophagitis, Ulcer Musculoskeletal: Yes (chronic shoulder and neck pain--OPIATE DEPENDENT;MINIMALLY AMBULATORY) Degenerate Disk Disease, Arthritis, Chronic Back Pain Endocrine: Yes ( MORBID OBESITY) Diabetes, Insulin dep HEENT: Yes (EDENTULOUS) Cancer: No Psychosocial: Yes (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; POLYSUBSTANCE ABUSE) Sleep Difficulties, Anxiety, Suicide Attempts, Bipolar, Depression Integumentary: No Blood Disorders: Yes (ANEMIA) Adverse Reaction/Blood Tranf: No Family Medical History Cancer 03 MOTHER, Onset:66 (LUNG ) 09 BROTHER (LUNG ) Congestive heart failure 03 FATHER Heart Disease, Cancer SOCIAL HISTORY: -SMOKED 3-4 PPD, NOW VAPES NICOTINE IN SENIOR LIVING -ETOH--HISTORY OF USE, CLAIMS NONE IN SENIOR LIVING -DRUGS--EXTENSIVE METHAMPHETAMINE AND MARIJUANA USE, INCLUDING IV METHAMPHETAMINE USE, WELL SMOKING IT, IN ADDITION TO SMOKING MARIJUANA; SHE ALSO HAS 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 PAST SURGICAL HISTORY: -EGD'S/COLONOSCOPIES -COLONOSCOPY 11/26/[address] RAMOS: POSTOPERATIVE DIAGNOSIS: Colon polyps. PROCEDURE: Colonoscopy with hot biopsy polypectomy x2 and snare polypectomy x4. -CARDIAC CATH 09/18/2017--NO INTERVENTION -CARDIAC CATH 03/20/[address] GOULD: CONCLUSION: 1. Dilated coronary system with mild ectasia in the LAD, nonobstructive disease 2. Mildly elevated left ventricular end-diastolic pressure DISCUSSION AND RECOMMENDATION: Medical therapy is recommended no intervention is needed Physical Exam Vital Signs Vital Signs - First Documented 08/05/22 08/05/22 19:14 21:10 Pulse 96 Resp 24 B/P (MAP) 141/91 (108) Pulse Ox 97 O2 Delivery Nasal Cannula O2 Flow Rate 4.00 Capillary Refill : Less Than 3 Seconds Height, Weight, BMI Height: 5'9.00" Weight: 197lbs. 0.9oz. 89.636026qv; 35.00 BMI Method:Stated General Appearance: No Apparent Distress, WD/WN, Obese HEENT: PERRL/EOMI Neck: Normal Inspection; No JVD Respiratory: Accessory Muscle Use; No Crackles; Wheezing, Other (Central anterior chest wall tender to palpation) Cardiovascular: Regular Rate, Rhythm, No Edema, No Murmur Gastrointestinal: Non Tender, Soft; No Distended Extremity: Normal Inspection, Non Tender, No Calf Tenderness Neurologic/Psychiatric: Alert, Oriented x3, No Motor/Sensory Deficits, Normal Mood/Affect Skin: Normal Color, Warm/Dry Progress/Results/Core Measures Results/Orders Lab Results Laboratory Tests Test 08/05/22 19:27 08/05/22 20:19 Range/Units White Blood Count 12.0 H 4.3-11.0 10^3/uL Red Blood Count 4.41 3.80-5.11 10^6/uL Hemoglobin 10.9 L 11.5-16.0 g/dL Hematocrit 36 35-52 % Mean Corpuscular Volume 81 80-99 fL Mean Corpuscular Hemoglobin 25 25-34 pg Mean Corpuscular Hemoglobin Concent 31 L 32-36 g/dL Red Cell Distribution Width 17.5 H 10.0-14.5 % Platelet Count 311 130-400 10^3/uL Mean Platelet Volume 10.2 9.0-12.2 fL Immature Granulocyte % (Auto) 1 % Neutrophils (%) (Auto) 74 42-75 % Lymphocytes (%) (Auto) 18 12-44 % Monocytes (%) (Auto) 6 0-12 % Eosinophils (%) (Auto) 1 0-10 % Basophils (%) (Auto) 0 0-10 % Neutrophils # (Auto) 8.9 H 1.8-7.8 10^3/uL Lymphocytes # (Auto) 2.2 1.0-4.0 10^3/uL Monocytes # (Auto) 0.7 0.0-1.0 10^3/uL Eosinophils # (Auto) 0.1 0.0-0.3 10^3/uL Basophils # (Auto) 0.0 0.0-0.1 10^3/uL Immature Granulocyte # (Auto) 0.1 0.0-0.1 10^3/uL Sodium Level 140 135-145 MMOL/L Potassium Level 3.6 3.6-5.0 MMOL/L Chloride Level 102 98-107 MMOL/L Carbon Dioxide Level 25 21-32 MMOL/L Anion Gap 13 5-14 MMOL/L Blood Urea Nitrogen 10 7-18 MG/DL Creatinine 1.28 0.60-1.30 MG/DL Estimat Glomerular Filtration Rate 49 BUN/Creatinine Ratio 8 Glucose Level 182 H 70-105 MG/DL Calcium Level 9.0 8.5-10.1 MG/DL Corrected Calcium 9.2 8.5-10.1 MG/DL Magnesium Level 2.0 1.6-2.4 MG/DL Total Bilirubin 0.2 0.1-1.0 MG/DL Aspartate Amino Transf (AST/SGOT) 12 5-34 U/L Alanine Aminotransferase (ALT/SGPT) 18 0-55 U/L Alkaline Phosphatase 105 40-136 U/L Myoglobin 43.4 10.0-92.0 NG/ML Troponin I < 0.028 <0.028 NG/ML B-Type Natriuretic Peptide 40.7 <100.0 PG/ML Total Protein 7.0 6.4-8.2 GM/DL Albumin 3.8 3.2-4.5 GM/DL Prothrombin Time 12.3 12.2-14.7 SEC INR Comment 0.9 0.8-1.4 Activated Partial Thromboplast Time 29 24-35 SEC D-Dimer < 0.27 0.00-0.49 UG/ML My Orders Orders - TYLOR DURAN MD Ekg Tracing (08/05/22 19:05) Cbc With Automated Diff (08/05/22 19:21) Magnesium (08/05/22 19:21) Chest 1 View, Ap/Pa Only (08/05/22 19:21) Comprehensive Metabolic Panel (08/05/22 19:21) Myoglobin Serum (08/05/22 19:21) Protime With Inr (08/05/22 19:21) Partial Thromboplastin Time (08/05/22 19:21) O2 (08/05/22 19:21) Monitor-Rhythm Ecg Trace Only (08/05/22 19:21) Ed Iv/Invasive Line Start (08/05/22 19:21) Troponin I Jame (08/05/22 19:21) Bnp [place] (08/05/22 19:35) Morphine Injection (Morphine Injection (08/05/22 19:35) Fibrin Degradation Products (08/05/22 20:19) Ketorolac Injection (Toradol Injection) (08/05/22 21:00) Ondansetron Injection (Zofran Injectio (08/05/22 21:00) Medications Given in ED Current Medications Medications Dose Ordered Sig/Vladimir Route Start Time Stop Time Status Last Admin Dose Admin Ketorolac Tromethamine 15 mg ONCE ONCE IVP 08/05/22 21:00 08/05/22 21:01 DC 08/05/22 21:06 15 MG Ondansetron HCl 4 mg ONCE ONCE IVP 08/05/22 21:00 08/05/22 21:01 DC 08/05/22 21:06 4 MG Vital Signs/I&O 08/05/22 08/05/22 08/05/22 19:14 19:14 21:10 Pulse 96 Resp 24 24 B/P (MAP) 141/91 (108) 112/87 Pulse Ox 97 93 98 O2 Delivery Nasal Cannula Room Air Nasal Cannula O2 Flow Rate 4.00 4.00 4.00 Blood Pressure Mean: 108 Progress Progress Note : Progress Note Chest pain work-up was pursued including CBC, CMP, troponin, D-dimer, BNP and magnesium. These labs were reviewed and interpreted by me. There were no significant abnormalities appreciated. WBC was slightly elevated at 12. EKG demonstrated no ischemia by my interpretation. Chest x-ray was viewed by me with no acute abnormalities appreciated. Radiologist interpretation was also reviewed. Patient's pain was treated initially with low-dose morphine which was followed by Toradol. She was offered a nebulizer treatment for her wheezing but declined stating she would do a treatment when she returned to the residential. Initial ECG Impression Date: August 05, 2022 Initial ECG Impression Time: 10:20 Initial ECG Rate: 102 Initial ECG Rhythm: S.Tach Comment Mild sinus tachycardia with no ST elevation or depression. No overt axis deviation. Possible right ventricular conduction delay by automated read. Th ere is tremor artifact on this EKG which could not be resolved as it was obtained. Diagnostic Imaging Diagonstic Imaging: Xray Plain Films/CT/US/NM/MRI: chest Comments NAME: [facility] REC#: [id number] PT STATUS: REG ER : 1965 PHYSICIAN: TYLOR DURAN MD ADMIT DATE: 08/05/22/ER Signed Date of Exam:08/05/22 CHEST 1 VIEW, AP/PA ONLY INDICATION: Chest pain. Time of Exam: 7:26 PM Correlation is made with prior chest from 06/04/2022. Heart size is stable. Lungs appear clear. Left base is somewhat obscured due to portable technique and the heart. No effusion or pneumothorax. IMPRESSION: Stable chest. No acute cardiopulmonary process is detected. Dictated by: Dictated on workstation # [id number] Dict: 08/05/22 1944 Trans: 08/05/22 1950 [id number] Interpreted by: WILLIAM ZAVALA MD Electronically signed by: WILLIAM ZAVALA MD 08/05/221949 Departure Impression Primary Impression: Chest wall pain Additional Impressions: Acute headache Qualified Codes: R51.9 - Headache, unspecified Nausea Disposition: 01 HOME, SELF-CARE Condition: Improved Departure-Patient Inst. Decision time for Depature: 21:03 Referrals: [facility] (PCP/Family) Primary Care Physician Patient Instructions: Chest Pain That Is Not Caused by the Heart (DC) Add. Discharge Instructions: You may continue taking naproxen and Tylenol as directed on your nursing facility MAR. Tylenol and naproxen may be taken together or alternating to help control your pain. Drink plenty of clear liquids to stay well-hydrated. Follow-up with your primary care provider if these symptoms persist tomorrow. Return to the ER if you have worsening symptoms despite following these instructions. All discharge instructions reviewed with patient and/or family. Voiced underst anding. Copy Copies To 1: [facility]/TYLOR ORTEGA MD August 05, 2022 20:32
[2022-08-05 20:41] LABS: INR 0.9 (0.8-1.4); PROTHROMBIN TIME PATIENT 12.3 SEC (12.2-14.7)
[2022-08-05 20:42] LABS: PARTIAL THROMBOPLASTIN TIME 29 SEC (24-35)
[2022-08-05 20:47] LABS: FIBRIN DEGRADATION PRODUCTS < 0.27 UG/ML (0.00-0.49)
[2022-08-05] MEDS ORDERED: ONDANSETRON 4 MG/2 ML (SDV) Z0FRAN IVP ONE (21:00)
[2022-08-05] MEDS ORDERED: KETOROLAC 30 MG/ML VIAL IVP ONE (21:00)
[2022-08-05 21:10] VITALS: BP 112/87
== END 2022-08-05 21:17 | disposition home or self-care (01) ==
LOC: EDUNIT# 19:03 → ER 19:03
DX: R07.89 Other chest pain (principal); R51.9 Headache, unspecified; R11.0 Nausea; R00.0 Tachycardia, unspecified; F17.290 Nicotine dependence, other tobacco product, uncomplicated; G47.30 Sleep apnea, unspecified; J42 Unspecified chronic bronchitis; E66.01 Morbid (severe) obesity due to excess calories; E11.9 Type 2 diabetes mellitus without complications; Z99.81 Dependence on supplemental oxygen; Z99.89 Dependence on other enabling machines and devices; Z79.4 Long term (current) use of insulin; Z68.35 Body mass index [BMI] 35.0-35.9, adult
CPT/HCPCS: 36415; 71045; 80053; 83735; 83874; 83880; 84484; 85025; 85379; 85610; 85730; 93005; 93041

== ENCOUNTER → 2022-08-20 | Outpatient (CLI) | payer MEDICARE, MEDICAID ==
[~2022-08-20] MED LIST changes: +POTA-330 PO; -POTA-51 PO; +RT-ALBUTEROL SULF 2.5 MG/3 ML PRE-MIX VIAL INH ONE
[2022-08-20 09:15] LABS: ABG BASE EXCESS 2.6 MMOL/L (-2.5-2.5); ABG OXYGEN SATURATION 94 % (94-100); ABG PCO2 51 MMHG (35-45); ABG PH 7.36 (7.37-7.43); ABG PO2 69 MMHG (79-93); ABG TCO2 29.1 MMOL/L (21.0-31.0)
[2022-08-20 09:16] LABS: ALLENS TEST YES-POS
[2022-08-20 09:17] LABS: INSPIRED O2 ROOM; VENTILATOR NO
== END ==
LOC: RT 07:57
PROVIDERS: ATTEND Internal Medicine Critical Care Medicine
DX: J44.9 Chronic obstructive pulmonary disease, unspecified (principal)
CPT/HCPCS: 36600; 82805; 94060; 94726; 94729

== ENCOUNTER 2022-11-20 19:34 | Emergency (ER) | payer MEDICARE, MEDICAID ==
[~2022-11-20 19:34] MED LIST changes: -DICL100G13 TOP; +DICL100G60 TOP; -POTA10CA44 PO; +POTA10CA84 PO; -ROSU20TA32 PO; +ROSU20TA73 PO; -RT-ALBUTEROL SULF 2.5 MG/3 ML PRE-MIX VIAL INH ONE
[2022-11-20] MEDS ORDERED: ONDANSETRON 4 MG ORAL DISSOLVE TABLET PO STA (19:54)
--- NOTE | 2022-11-20 19:55 | ED Headache ---
General Stated Complaint: MIGRAINE, CHEST PAIN Source: patient, old records History of Present Illness Date Seen by Provider: Nov 20, 2022 Time Seen by Provider: 19:50 Initial Comments PT ARRIVES VIA CUSTODIAL TRANSPORTATION FROM [facility] C/O RIGHT FRONTAL HEADACHE AND NAUSEA SINCE THIS MORNING THIS IS CHRONIC PROBLEM AND EXACTLY THE SAME HER NORMAL HEADACHES PT TOOK TYLENOL AND NAPROXEN AT 1800/1830 WITHOUT RELIEF PT STATES SHE JUST WANTS TORADOL AND NAUSEA MEDICATION AND THEN WANTS TO GO BACK HOME--STATES TORADOL ALWAYS WORKS STATES SHE JUST WANTS TO GET IN AND OUT. THE SUPPORT COORDINATOR FROM THE FACILITY IS WILLING TO WAIT AND TAKE PT BACK TO CUSTODIAL PT WITH MULTITUDE OF VISITS FOR THIS SAME COMPLAINT WELL VARIOUS OTHER CHR ONIC ISSUES . PT HAS COPD AND IS O2 DEPENDENT. SHE ARRIVES WITHOUT HER OXYGEN Allergies and Home Medications Allergies Coded Allergies: buspirone (Verified Allergy, Mild, 02/11/22) Made"legs Shaky" amitriptyline (Verified Allergy, Unknown, 02/11/22) " MAKES ME DO WEIRD THINGS LIKE WALK IN MY SLEEP AND HAVE HALLUCINATIONS." amlodipine (Verified Allergy, Unknown, 02/11/22) Patient Home Medication List Acetaminophen (Tylenol) 325 Mg Tablet, 650 MG PO Q4H PRN for PAIN-MILD (1-4), (Reported) Entered as Reported by: SEAN ARTEAGA on 03/20/21 1008 Albuterol Sulfate (Ventolin Hfa) 1 Puff Puff, 2 PUFF IH Q4H PRN for SHORTNESS OF BREATH, (Reported) Entered as Reported by: SEAN ARTEAGA on 03/20/21 1008 Aspirin (Aspirin EC) 81 Mg Tablet.dr, 81 MG PO DAILY, (Reported) Entered as Reported by: HARSH PARRISH on 11/19/17 1603 Benzonatate (Benzonatate) 100 Mg Capsule, 100 MG PO QID PRN for COUGH, (Reported) Entered as Reported by: DANIELLE RICHARD on 07/31/20 1616 Bumetanide (Bumetanide) 2 Mg Tablet, 2 MG PO 0800,1200, (Reported) Entered as Reported by: SEAN ARTEAGA on 03/20/21 1008 Calcium Carbonate (Calcium Carbonate) 600 Mg Calcium (1500 Mg) Tablet, 600 MG PO BID, (Reported) Entered as Reported by: DANIELLE RICHARD on 02/11/22 1003 Carvedilol (Carvedilol) 3.125 Mg Tablet, 3.125 MG PO BID, (Reported) Entered as Reported by: SEAN ARTEAGA on 03/20/21 100 Cefdinir (Cefdinir) 300 Mg Capsule, 300 MG PO BID Prescribed by: RODY ALDANA on 02/17/22 112 Cholecalciferol (Vitamin D3) (Vitamin D3) 50 Mcg (2000 Unit) Tab.chew, 50 MCG PO DAILY, (Reported) Entered as Reported by: CARLOS BANSAL on 11/14/21 104 Clonazepam (Clonazepam) 1 Mg Tablet, 1 MG PO TID, (Reported) Entered as Reported by: CARLOS BANSAL on 11/14/21 104 Diclofenac Sodium (Diclofenac Sodium) 1 % Gel..gram., 2 GM TOP Q8H PRN for PAIN- BREAKTHROUGH, (Reported) Entered as Reported by: DANIELLE RICHARD on 02/11/22 100 Dulaglutide (Trulicity) 0.75 Mg/0.5 Ml Pen.injctr, 0.75 MG SQ MICHA, (Reported) Entered as Reported by: CARLOS BANSAL on 11/14/21 104 Duloxetine HCl (Duloxetine HCl) 60 Mg Capsule.dr, 60 MG PO DAILY, (Reported) Entered as Reported by: DANIELLE RICHARD on 02/11/22 100 Fluticasone/Umeclidin/Vilanter (Trelegy Ellipta 100-62.5-25) 100-62.5 Blst.w.dev, 1 EACH IH 1200, (Reported) Entered as Reported by: CARLOS BANSAL on 11/14/21 104 Glimepiride (Glimepiride) 1 Mg Tablet, 1 MG PO DAILY, (Reported) Entered as Reported by: HARSH PARRISH on 04/29/17 1346 Hydralazine HCl (Hydralazine HCl) 10 Mg Tablet, 10 MG PO TID Prescribed by: RODY ALDANA on 02/17/221121 Insulin Aspart (Novolog Flexpen) 100 Unit/Ml (3 Ml) Solution, 10 UNITS SC WM Prescribed by: RODY ALDANA on 12/12/22 1122 Insulin Detemir (Levemir Flextouch) 100 Unit/Ml (3 Ml) Insuln.pen, 25 UNIT SQ BID, (Reported) Entered as Reported by: CARLOS BANSAL on 11/14/21 1048 Ipratropium/Albuterol Sulfate (Iprat-Albut 0.5-3(2.5) mg/3 ml) 0.5 Mg-3 Mg (2.5 Mg Base)/3 Ml Ampul.neb, 3 ML IH Q4 -6H PRN for SHORTNESS OF BREATH, (Reported) Entered as Reported by: CARLOS BANSAL on 11/14/21 1048 Loperamide HCl (Imodium A-D) 2 Mg Capsule, 2-4 MG PO UD PRN for LOOSE STOOLS, (Reported) Entered as Reported by: DANIELLE RICHARD on 02/11/22 1003 Magnesium Oxide (Magnesium Oxide) 400 Mg Magnesium Tablet, 400 MG PO BID, (Reported) Entered as Reported by: DANIELLE RICHARD on 02/11/22 1003 Menthol (Biofreeze) 118 Ml Gel..ml., 1 APPLIC TP UD PRN for PAIN-BREAKTHROUGH, (Reported) Entered as Reported by: DANIELLE RICHARD on 12/18/20 1129 Methenamine Hippurate (Methenamine Hippurate) 1 Gram Tablet, 1 GM PO BID, (Reported) Entered as Reported by: CARLOS BANSAL on 11/14/21 1048 Mirabegron (Myrbetriq) 25 Mg Tab.er.24h, 25 MG PO DAILY, (Reported) Entered as Reported by: DANIELLE RICHARD on 02/11/22 1003 Multivitamin/Iron/Folic Acid (Centrum Women Tablet) 1 Each Tablet, 1 EACH PO DAILY, (Reported) Entered as Reported by: DANIELLE RICHARD on 12/18/20 1129 Olanzapine (Olanzapine) 7.5 Mg Tablet, 7.5 MG PO HS, (Reported) Entered as Reported by: DANIELLE RICHARD on 02/11/22 1003 Oxybutynin Chloride (Oxybutynin Chloride) 5 Mg Tablet, 5 MG PO BID, (Reported) Entered as Reported by: SEAN ARTEAGA on 03/20/21 1008 Pantoprazole Sodium (Pantoprazole Sodium) 40 Mg Tablet.dr, 40 MG PO DAILY, (Reported) Entered as Reported by: SEAN ARTEAGA on 03/20/21 1008 Polyethylene Glycol 3350 (Miralax) 17 Gram Powd.pack, 17 GM PO DAILY, (Reported) Entered as Reported by: DANIELLE RICHARD on 02/11/22 100 Potassium Chloride (K-Tab ER) 20 Meq Tablet.er, 20 MEQ PO DAILY, (Reported) Entered as Reported by: CARLOS BANSAL on 11/14/21 1048 Prednisone (Prednisone) 10 Mg Tab, 10 MG PO DAILY Prescribed by: RODY ALDANA on 02/17/22 112 Prednisone (Prednisone) 10 Mg Tab.ds.pk, 10 MG PO DAILY Prescribed by: RODY ALDANA on 02/17/22 112 Promethazine HCl (Promethazine HCl) 12.5 Mg Tablet, 12.5-25 MG PO Q6H PRN for NAUSEA/VOMITING-2ND LINE, (Reported) Entered as Reported by: DANIELLE RICHARD on 02/11/22 100 Rizatriptan Benzoate (Rizatriptan) 10 Mg Tablet, 10 MG PO UD PRN for MIGRAINE, (Reported) Entered as Reported by: CARLOS BANSAL on 11/14/21 1048 Rosuvastatin Calcium (Rosuvastatin Calcium) 20 Mg Tablet, 20 MG PO HS, (Reported) Entered as Reported by: SEAN ARTEAGA on 03/20/21 1008 Sodium Chloride (Saline Nasal [place]) 0.65 % [place], 2 SPRAYS NSEACH Q4H PRN for DRY NOSE, (Reported) Entered as Reported by: DANIELLE RICHARD on 02/11/22 100 Topiramate (Topiramate) 50 Mg Tablet, 50 MG PO BID, (Reported) Entered as Reported by: DANIELLE RICHARD on 02/11/22 1003 Past Qmhjiei-Zobyho-Qhrpuu Hx Immunizations Up To Date Tetanus Booster (TDap): Unknown First/Initial COVID19 Vaccinat: 04/09/20 Second COVID19 Vaccination Dustin: 04/28/20 Third COVID19 Vaccination Date: 04/09/20 Seasonal Allergies Seasonal Allergies: No Past Medical History Surgery/Hospitalization HX: IDDM,CHF,COPD,ANXIETY,HIGH LIPIDS, acute kidney failure, uti,CONSTIPATION, DIARRHEA, BIPOLAR, HTN, CAD, BRONCHITIS, TANG, GERD EGD/COLONOSCOPY, CARDIAC CATH UPPER AND LOWER DENTURES WITH PATIENT ON ADMISSION Surgeries: Yes (EGD/COLONOSCOPY; CARDIAC CATH 09/18/17--NO INTERVENTION) Cardiac Respiratory: Yes (O2 AT 4L/NC CONTINUOUSLY) Pneumonia, Chronic Bronchitis, Sleep Apnea, COPD Currently Using CPAP: No Currently Using BIPAP: Yes Cardiac: Yes Cardiomyopathy, Chronic Edema/Swelling, Coronary Artery Disease, High Cholesterol, Hypertension Neurological: Yes Headaches /Migraines 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 Disorders: No 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 Disorders: 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 Sexually Transmitted Disease: No HIV/AIDS: No Genitourinary: Yes Bladder Infection Gastrointestinal: Yes (GASTRITIS AND ESOPHAGEAL CANDIDIASIS 04/2017) Gastroesophageal Reflux, Gastrointestinal Bleed, Chronic Constipation, Chronic Diarrhea, Polyps, Esophagitis, Ulcer Musculoskeletal: Yes (chronic shoulder and neck pain--OPIATE DEPENDENT;MINIMALLY AMBULATORY) Degenerate Disk Disease, Arthritis, Chronic Back Pain Endocrine: Yes ( MORBID OBESITY) Diabetes, Insulin dep HEENT: Yes (EDENTULOUS) Cancer: No Psychosocial: Yes (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; POLYSUBSTANCE ABUSE) Sleep Difficulties, Anxiety, Suicide Attempts, Bipolar, Depression Integumentary: No Blood Disorders: Yes (ANEMIA) Adverse Reaction/Blood Tranf: No Family Medical History Cancer 03 MOTHER, Onset:66 (LUNG ) 09 BROTHER (LUNG ) Congestive heart failure 03 FATHER Heart Disease, Cancer SOCIAL HISTORY: -SMOKED 3-4 PPD, NOW VAPES NICOTINE IN CUSTODIAL -ETOH--HISTORY OF USE, CLAIMS NONE IN CUSTODIAL -DRUGS--EXTENSIVE METHAMPHETAMINE AND MARIJUANA USE, INCLUDING IV METHAMPHETAMINE USE, WELL SMOKING IT, IN ADDITION TO SMOKING MARIJUANA; SHE ALSO HAS 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 PAST SURGICAL HISTORY: -EGD'S/COLONOSCOPIES -COLONOSCOPY 11/26/[address] RAMOS: POSTOPERATIVE DIAGNOSIS: Colon polyps. PROCEDURE: Colonoscopy with hot biopsy polypectomy x2 and snare polypectomy x4. -CARDIAC CATH 09/18/2017--NO INTERVENTION -CARDIAC CATH 03/20/[address] GOULD: CONCLUSION: 1. Dilated coronary system with mild ectasia in the LAD, nonobstructive disease 2. Mildly elevated left ventricular end-diastolic pressure DISCUSSION AND RECOMMENDATION: Medical therapy is recommended no intervention is needed Physical Exam Vital Signs Capillary Refill : Height, Weight, BMI Height: 5'9.00" Weight: 197lbs. 0.9oz. 89.670672ud; 35.00 BMI Method:Stated Progress/Results/Core Measures Results/Orders My Orders Orders - TIMOTHY HUGHES DO Ondansetron Oral Dissolve Tab (Ondanset (11/20/22 19:54) Ketorolac Injection (Ketorolac Injection (11/20/22 20:00) Departure Impression Primary Impression: Chronic headaches Disposition: 03 XFER SNF Condition: Stable Departure-Patient Inst. Decision time for Depature: 19:55 Referrals: [facility] (PCP/Family) Primary Care Physician Patient Instructions: Headache, Adult Add. Discharge Instructions: CONTINUE YOUR REGULAR MEDICATIONS PRESCRIBED FOLLOW UP WITH YOUR DR NEEDED TIMOTHY HUGHES DO Nov 20, 2022 19:55
[2022-11-20] MEDS ORDERED: KETOROLAC INJ 60 MG/2 ML VIAL IM ONE (20:00)
[2022-11-20 20:09] VITALS: BP 115/52
== END 2022-11-20 20:09 ==
LOC: EDUNIT# 19:34 → ER 19:37
DX: R51.9 Headache, unspecified (principal); G89.29 Other chronic pain; J44.9 Chronic obstructive pulmonary disease, unspecified; E11.9 Type 2 diabetes mellitus without complications; G47.30 Sleep apnea, unspecified; E66.01 Morbid (severe) obesity due to excess calories; F17.290 Nicotine dependence, other tobacco product, uncomplicated; Z68.35 Body mass index [BMI] 35.0-35.9, adult; Z99.81 Dependence on supplemental oxygen; Z99.89 Dependence on other enabling machines and devices; Z79.4 Long term (current) use of insulin
CPT/HCPCS: 99284

== ENCOUNTER 2022-11-22 14:17 | Emergency (ER) | payer MEDICARE, MEDICAID ==
[~2022-11-22] VITALS: Ht 177 cm; Wt 134.0 kg
[2022-11-22] MEDS ORDERED: ASPIRIN 81 MG CHEWABLE TABLET PO ONE (14:30)
[2022-11-22] MEDS ORDERED: NITROGLYCERIN 0.4 MG SL TABLETS BTL 25'S SL PRN (14:30)
[2022-11-22] MEDS ORDERED: RT-Ipratropium/Albuterol NEB 3 ML VIAL INH ONE (14:30)
--- NOTE | 2022-11-22 14:30 | ED Cardiac General ---
History of Present Illness General Chief Complaint: Chest Pain Stated Complaint: CHEST PAIN Source: patient Exam Limitations: no limitations History of Present Illness Date Seen by Provider: Nov 22, 2022 Time Seen by Provider: 14:34 Initial Comments Patient is a 57-year-old female with a history CHF, COPD, HTN, MORBID OBESITY; CHRONIC GENERALIZED PAIN; INSULIN DEPENDENT DIABETES; HYPERLIPIDEMIA who presents to the ED for chest pain. Chest pain substernal over the past week constant. She states pain is 8 out of 10. Associate shortness of breath for the past week as well. She is chronically on 4 L for her COPD. She does have rating pain to the left arm. She reports taking ibuprofen for the pain without much improvement. She also reports a mild cough that is different than her normal. Mild sputum production. She reports some episodes of diarrhea without vomiting. Was diagnosed with COVID 2 weeks ago. She denies of any leg swelling . Pain is not worse with exertion or while laying down. History of coronary artery disease and takes a baby aspirin. She denies of increasing pain with eating. History of pneumonia and states this feels very similar. She denies any fever, chills, body aches. She also reports a headache with a history of chronic migraines. Denies of any visual changes, unilateral muscle weakness. Allergies and Home Medications Allergies Coded Allergies: buspirone (Verified Allergy, Mild, 02/11/22) Made"legs Shaky" amitriptyline (Verified Allergy, Unknown, 02/11/22) " MAKES ME DO WEIRD THINGS LIKE WALK IN MY SLEEP AND HAVE HALLUCINATIONS." amlodipine (Verified Allergy, Unknown, 02/11/22) Patient Home Medication List Home Medication List Reviewed: Yes Acetaminophen (Tylenol) 325 Mg Tablet, 650 MG PO Q4H PRN for PAIN-MILD (1-4), (Reported) Entered as Reported by: SEAN ARTEAGA on 03/20/21 1008 Albuterol Sulfate (Ventolin Hfa) 1 Puff Puff, 2 PUFF IH Q4H PRN for SHORTNESS OF BREATH, (Reported) Entered as Reported by: SEAN ARTEAGA on 03/20/21 1008 Aspirin (Aspirin EC) 81 Mg Tablet.dr, 81 MG PO DAILY, (Reported) Entered as Reported by: HARSH PARRISH on 11/19/17 1603 Benzonatate (Benzonatate) 100 Mg Capsule, 100 MG PO QID PRN for COUGH, (Reported) Entered as Reported by: DANIELLE RICHARD on 07/31/20 1616 Bumetanide (Bumetanide) 2 Mg Tablet, 2 MG PO 0800,1200, (Reported) Entered as Reported by: SEAN ARTEAGA on 03/20/21 1008 Calcium Carbonate (Calcium Carbonate) 600 Mg Calcium (1500 Mg) Tablet, 600 MG PO BID, (Reported) Entered as Reported by: DANIELLE RICHARD on 02/11/22 1003 Carvedilol (Carvedilol) 3.125 Mg Tablet, 3.125 MG PO BID, (Reported) Entered as Reported by: SEAN ARTEAGA on 03/20/21 1008 Cefdinir (Cefdinir) 300 Mg Capsule, 300 MG PO BID Prescribed by: RODY ALDANA on 02/17/22 1122 Cholecalciferol (Vitamin D3) (Vitamin D3) 50 Mcg (2000 Unit) Tab.chew, 50 MCG PO DAILY, (Reported) Entered as Reported by: CARLOS BANSAL on 11/14/21 1048 Clonazepam (Clonazepam) 1 Mg Tablet, 1 MG PO TID, (Reported) Entered as Reported by: CARLOS BANSAL on 11/14/21 1048 Diclofenac Sodium (Diclofenac Sodium) 1 % Gel..gram., 2 GM TOP Q8H PRN for PAIN- BREAKTHROUGH, (Reported) Entered as Reported by: DANIELLE RICHARD on 02/11/22 1003 Doxycycline Monohydrate (Doxycycline Monohydrate) 100 Mg Tablet, 100 MG PO BID Prescribed by: DAVID LONG on 11/22/22 1733 Dulaglutide (Trulicity) 0.75 Mg/0.5 Ml Pen.injctr, 0.75 MG SQ MICHA, (Reported) Entered as Reported by: CARLOS BANSAL on 11/14/21 1048 Duloxetine HCl (Duloxetine HCl) 60 Mg Capsule.dr, 60 MG PO DAILY, (Reported) Entered as Reported by: DANIELLE RICHARD on 02/11/22 1003 Fluticasone/Umeclidin/Vilanter (Trelegy Ellipta 100-62.5-25) 100-62.5 Blst.w.dev, 1 EACH IH 1200, (Reported) Entered as Reported by: CARLOS BANSAL on 11/14/21 1048 Glimepiride (Glimepiride) 1 Mg Tablet, 1 MG PO DAILY, (Reported) Entered as Reported by: HARSH PARRISH on 04/29/17 1346 Hydralazine HCl (Hydralazine HCl) 10 Mg Tablet, 10 MG PO TID Prescribed by: RODY ALDANA on 02/17/22 112 Insulin Aspart (Novolog Flexpen) 100 Unit/Ml (3 Ml) Solution, 10 UNITS SC WM Prescribed by: RODY ALDANA on 02/17/22 112 Insulin Detemir (Levemir Flextouch) 100 Unit/Ml (3 Ml) Insuln.pen, 25 UNIT SQ BID, (Reported) Entered as Reported by: CARLOS BANSAL on 11/14/21 104 Ipratropium/Albuterol Sulfate (Iprat-Albut 0.5-3(2.5) mg/3 ml) 0.5 Mg-3 Mg (2.5 Mg Base)/3 Ml Ampul.neb, 3 ML IH Q4 -6H PRN for SHORTNESS OF BREATH, (Reported) Entered as Reported by: CARLOS BANSAL on 11/14/21 104 Loperamide HCl (Imodium A-D) 2 Mg Capsule, 2-4 MG PO UD PRN for LOOSE STOOLS, (Reported) Entered as Reported by: DANIELLE RICHARD on 02/11/22 1003 Magnesium Oxide (Magnesium Oxide) 400 Mg Magnesium Tablet, 400 MG PO BID, (Reported) Entered as Reported by: DANIELLE RICHARD on 02/11/22 1003 Menthol (Biofreeze) 118 Ml Gel..ml., 1 APPLIC TP UD PRN for PAIN-BREAKTHROUGH, (Reported) Entered as Reported by: DANIELLE RICHARD on 12/18/20 1129 Methenamine Hippurate (Methenamine Hippurate) 1 Gram Tablet, 1 GM PO BID, (Reported) Entered as Reported by: CARLOS BANSAL on 11/14/21 104 Mirabegron (Myrbetriq) 25 Mg Tab.er.24h, 25 MG PO DAILY, (Reported) Entered as Reported by: DANIELLE RICHARD on 02/11/22 1003 Multivitamin/Iron/Folic Acid (Centrum Women Tablet) 1 Each Tablet, 1 EACH PO DAILY, (Reported) Entered as Reported by: DANIELLE RICHARD on 12/18/20 1129 Olanzapine (Olanzapine) 7.5 Mg Tablet, 7.5 MG PO HS, (Reported) Entered as Reported by: DANIELLE RICHARD on 02/11/22 100 Oxybutynin Chloride (Oxybutynin Chloride) 5 Mg Tablet, 5 MG PO BID, (Reported) Entered as Reported by: SEAN ARTEAGA on 03/20/21 100 Pantoprazole Sodium (Pantoprazole Sodium) 40 Mg Tablet.dr, 40 MG PO DAILY, (Reported) Entered as Reported by: SEAN ARTEAGA on 03/20/21 100 Polyethylene Glycol 3350 (Miralax) 17 Gram Powd.pack, 17 GM PO DAILY, (Reported) Entered as Reported by: DANIELLE RICHARD on 02/11/22 100 Potassium Chloride (K-Tab ER) 20 Meq Tablet.er, 20 MEQ PO DAILY, (Reported) Entered as Reported by: CARLOS BANSAL on 11/14/21 104 Prednisone (Prednisone) 10 Mg Tab, 10 MG PO DAILY Prescribed by: RODY ALDANA on 02/17/22 112 Prednisone (Prednisone) 10 Mg Tab.ds.pk, 10 MG PO DAILY Prescribed by: RODY ALDANA on 02/17/22 112 Promethazine HCl (Promethazine HCl) 12.5 Mg Tablet, 12.5-25 MG PO Q6H PRN for NAUSEA/VOMITING-2ND LINE, (Reported) Entered as Reported by: DANIELLE RICHARD on 02/11/22 100 Rizatriptan Benzoate (Rizatriptan) 10 Mg Tablet, 10 MG PO UD PRN for MIGRAINE, (Reported) Entered as Reported by: CARLOS BANSAL on 11/14/21 104 Rosuvastatin Calcium (Rosuvastatin Calcium) 20 Mg Tablet, 20 MG PO HS, (Reported) Entered as Reported by: SEAN ARTEAGA on 03/20/21 100 Sodium Chloride (Saline Nasal [place]) 0.65 % [place], 2 SPRAYS NSEACH Q4H PRN for DRY NOSE, (Reported) Entered as Reported by: DANIELLE RICHARD on 02/11/22 1003 Topiramate (Topiramate) 50 Mg Tablet, 50 MG PO BID, (Reported) Entered as Reported by: DANIELLE RICHARD on 02/11/22 1003 Review of Systems Review of Systems Constitutional: No chills, No diaphoresis, No fever, No weakness EENTM: No Eye Pain Respiratory: Cough Cardiovascular: Chest Pain Gastrointestinal: Denies Abdominal Pain; Diarrhea; Denies Nausea, Denies Vomiting Genitourinary: Denies Burning, Denies Discharge, Denies Drainage, Denies Frequency Musculoskeletal: No back pain, No joint pain Skin: No change in color, No change in hair/nails All Other Systems Reviewed Negative Unless Noted: Yes Past Xxamlrv-Vtodbr-Odcvuk Hx Patient Social History Tobacco Use?: No Use of E-Cig and/or Vaping dev: Yes E-Cig or Vaping type used: Nicotine Substance use?: No Alcohol Use?: No Pt feels they are or have been: No Immunizations Up To Date Tetanus Booster (TDap): Unknown First/Initial COVID19 Vaccinat: 04/09/20 Second COVID19 Vaccination Dustin: 04/28/20 Third COVID19 Vaccination Date: 04/09/20 Seasonal Allergies Seasonal Allergies: No Past Medical History Surgery/Hospitalization HX: IDDM,CHF,COPD,ANXIETY,HIGH LIPIDS, acute kidney failure, uti,CONSTIPATION, DIARRHEA, BIPOLAR, HTN, CAD, BRONCHITIS, TANG, GERD EGD/COLONOSCOPY, CARDIAC CATH UPPER AND LOWER DENTURES WITH PATIENT ON ADMISSION Surgeries: Yes (EGD/COLONOSCOPY; CARDIAC CATH 09/18/17--NO INTERVENTION) Cardiac Respiratory: Yes (O2 AT 4L/NC CONTINUOUSLY) Pneumonia, Chronic Bronchitis, Sleep Apnea, COPD Currently Using CPAP: No Currently Using BIPAP: Yes Cardiac: Yes Cardiomyopathy, Chronic Edema/Swelling, Coronary Artery Disease, High Cholesterol, Hypertension Neurological: Yes Headaches /Migraines 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 Disorders: No 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 Disorders: Denies 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: Menopausal Sexually Transmitted Disease: No HIV/AIDS: No Genitourinary: Yes Bladder Infection Gastrointestinal: Yes (GASTRITIS AND ESOPHAGEAL CANDIDIASIS 04/2017) Gastroesophageal Reflux, Gastrointestinal Bleed, Chronic Constipation, Chronic Diarrhea, Polyps, Esophagitis, Ulcer Musculoskeletal: Yes (chronic shoulder and neck pain--OPIATE DEPENDENT;MINIMALLY AMBULATORY) Degenerate Disk Disease, Arthritis, Chronic Back Pain Endocrine: Yes ( MORBID OBESITY) Diabetes, Insulin dep HEENT: Yes (EDENTULOUS) Cancer: No Psychosocial: Yes (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; POLYSUBSTANCE ABUSE) Sleep Difficulties, Anxiety, Suicide Attempts, Bipolar, Depression Integumentary: No Blood Disorders: Yes (ANEMIA) Adverse Reaction/Blood Tranf: No Family Medical History Cancer 03 MOTHER, Onset:66 (LUNG ) 09 BROTHER (LUNG ) Congestive heart failure 03 FATHER Heart Disease, Cancer SOCIAL HISTORY: -SMOKED 3-4 PPD, NOW VAPES NICOTINE IN DETENTION -ETOH--HISTORY OF USE, CLAIMS NONE IN DETENTION -DRUGS--EXTENSIVE METHAMPHETAMINE AND MARIJUANA USE, INCLUDING IV METHAMPHETAMINE USE, WELL SMOKING IT, IN ADDITION TO SMOKING MARIJUANA; SHE ALSO HAS 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 PAST SURGICAL HISTORY: -EGD'S/COLONOSCOPIES -COLONOSCOPY 11/26/[address] RAMOS: POSTOPERATIVE DIAGNOSIS: Colon polyps. PROCEDURE: Colonoscopy with hot biopsy polypectomy x2 and snare polypectomy x4. -CARDIAC CATH 09/18/2017--NO INTERVENTION -CARDIAC CATH 03/20/[address] AUGUSTE: CONCLUSION: 1. Dilated coronary system with mild ectasia in the LAD, nonobstructive disease 2. Mildly elevated left ventricular end-diastolic pressure DISCUSSION AND RECOMMENDATION: Medical therapy is recommended no intervention is needed Physical Exam Vital Signs Vital Signs - First Documented 11/22/22 14:18 Temp 36.7 Pulse 116 Resp 22 B/P (MAP) 119/75 (90) Pulse Ox 98 O2 Delivery Nasal Cannula O2 Flow Rate 4.00 Capillary Refill : Height, Weight, BMI Height: 5'9.00" Weight: 197lbs. 0.9oz. [id number]; 35.00 BMI Method:Stated General Appearance: No Apparent Distress, WD/WN HEENT: PERRL/EOMI, TMs Normal, Normal ENT Inspection, Pharynx Normal Neck: Full Range of Motion, Normal Inspection, Non Tender, Supple Respiratory: Wheezing Cardiovascular: No Edema, No Gallop, No JVD, Tachycardia Gastrointestinal: Normal Bowel Sounds, No Organomegaly, No Pulsatile Mass, Non Tender Extremity: Normal Capillary Refill, Normal Inspection, Normal Range of Motion, Non Tender Neurologic/Psychiatric: Alert, Oriented x3, No Motor/Sensory Deficits, Normal Mood/Affect, reconstructive surgeon II-XII Norm as Tested Skin: Normal Color, Warm/Dry Focused Exam Lactate Level 11/22/22 14:40: Lactic Acid Level 1.80 Lactic Acid Level Laboratory Tests Test 11/22/22 14:40 Lactic Acid Level 1.80 MMOL/L (0.50-2.00) Progress/Results/Core Measures Results/Orders Lab Results Laboratory Tests Test 11/22/22 14:28 11/22/22 14:40 11/22/22 16:25 Range/Units White Blood Count 17.3 H 4.3-11.0 10^3/uL Red Blood Count 4.59 3.80-5.11 10^6/uL Hemoglobin 11.5 11.5-16.0 g/dL Hematocrit 38 35-52 % Mean Corpuscular Volume 82 80-99 fL Mean Corpuscular Hemoglobin 25 25-34 pg Mean Corpuscular Hemoglobin Concent 31 L 32-36 g/dL Red Cell Distribution Width 16.1 H 10.0-14.5 % Platelet Count 347 130-400 10^3/uL Mean Platelet Volume 10.2 9.0-12.2 fL Immature Granulocyte % (Auto) 1 % Neutrophils (%) (Auto) 82 H 42-75 % Lymphocytes (%) (Auto) 11 L 12-44 % Monocytes (%) (Auto) 6 0-12 % Eosinophils (%) (Auto) 1 0-10 % Basophils (%) (Auto) 0 0-10 % Neutrophils # (Auto) 14.1 H 1.8-7.8 10^3/uL Lymphocytes # (Auto) 1.9 1.0-4.0 10^3/uL Monocytes # (Auto) 1.0 0.0-1.0 10^3/uL Eosinophils # (Auto) 0.1 0.0-0.3 10^3/uL Basophils # (Auto) 0.0 0.0-0.1 10^3/uL Immature Granulocyte # (Auto) 0.1 0.0-0.1 10^3/uL Neutrophils % (Manual) 76 % Lymphocytes % (Manual) 17 % Monocytes % (Manual) 6 % Eosinophils % (Manual) 1 % Basophils % (Manual) 0 % Band Neutrophils 0 % Blood Morphology Comment NORMAL Prothrombin Time 12.3 12.2-14.7 SEC INR Comment 0.9 0.8-1.4 Activated Partial Thromboplast Time 29 24-35 SEC D-Dimer 0.34 0.00-0.49 UG/ML Sodium Level 138 135-145 MMOL/L Potassium Level 3.9 3.6-5.0 MMOL/L Chloride Level 100 98-107 MMOL/L Carbon Dioxide Level 26 21-32 MMOL/L Anion Gap 12 5-14 MMOL/L Blood Urea Nitrogen 11 7-18 MG/DL Creatinine 1.39 H 0.60-1.30 MG/DL Estimat Glomerular Filtration Rate 44 BUN/Creatinine Ratio 8 Glucose Level 225 H 70-105 MG/DL Calcium Level 9.3 8.5-10.1 MG/DL Corrected Calcium 9.3 8.5-10.1 MG/DL Magnesium Level 2.1 1.6-2.4 MG/DL Total Bilirubin 0.2 0.1-1.0 MG/DL Aspartate Amino Transf (AST/SGOT) 18 5-34 U/L Alanine Aminotransferase (ALT/SGPT) 20 0-55 U/L Alkaline Phosphatase 125 40-136 U/L Myoglobin 67.2 10.0-92.0 NG/ML Troponin I < 0.028 < 0.028 <0.028 NG/ML B-Type Natriuretic Peptide 35.7 <100.0 PG/ML Total Protein 7.4 6.4-8.2 GM/DL Albumin 4.0 3.2-4.5 GM/DL Lipase 21 8-78 U/L Lactic Acid Level 1.80 0.50-2.00 MMOL/L Micro Results Microbiology 11/22/22 Blood Culture - Preliminary, Resulted 11/22/22 Blood Culture - Preliminary, Resulted My Orders Orders - SUNITHA PATEL PA Cbc With Automated Diff (11/22/22 14:25) Magnesium (11/22/22 14:25) Chest 1 View, Ap/Pa Only (11/22/22 14:25) Comprehensive Metabolic Panel (11/22/22 14:25) Myoglobin Serum (11/22/22 14:25) Protime With Inr (11/22/22 14:25) Partial Thromboplastin Time (11/22/22 14:25) O2 (11/22/22 14:25) Monitor-Rhythm Ecg Trace Only (11/22/22 14:25) Ed Iv/Invasive Line Start (11/22/22 14:25) Lipase (11/22/22 14:25) Bnp Jame (11/22/22 14:25) Troponin I Jame (11/22/22 14:25) Aspirin Chewable Tablet (Aspirin Chewabl (11/22/22 14:30) Blood Culture (11/22/22 14:25) Lactic Acid Analyzer (11/22/22 14:25) Ipratropium/Albuterol Inh Soln (Ipratrop (11/22/22 14:30) Svn Small Volume Nebulizer (11/22/22 14:25) Nitroglycerin 0.4 Mg Btl 25's (Nitroglyc (11/22/22 14:30) Fibrin Degradation Products (11/22/22 14:33) Manual Differential (11/22/22 14:28) Blood Culture (11/22/22 14:54) Ondansetron Injection (Ondansetron Inj (11/22/22 15:15) Morphine Injection (Morphine Injection (11/22/22 15:45) Ketorolac Injection (Ketorolac Injection (11/22/22 16:15) Diphenhydramine Injection (Diphenhydram (11/22/22 16:15) Prochlorperazine Injection (Prochlorpera (11/22/22 16:15) Troponin I [place] (11/22/22 16:26) Acetaminophen Tablet (Acetaminophen Ta (11/22/22 17:30) Medications Given in ED Vital Signs/I&O 11/22/22 11/22/22 11/22/22 11/22/22 14:18 14:18 15:01 17:50 Temp 36.7 37.1 Pulse 116 98 Resp 22 20 B/P (MAP) 119/75 (90) 125/83 Pulse Ox 98 98 97 98 O2 Delivery Nasal Cannula Nasal Cannula Nasal Cannula Nasal Cannula O2 Flow Rate 4.00 4.00 4.00 Comment Ectopic atrial rhythm, low QRS voltage in pericardial leads, possible right ventricular conduction delay, 96 bpm, QRS duration 78 MS, QTc 415 MS Departure Communication (PCP) Patient presents ED with substernal ongoing chest pain for the past week. Rates pain 8 out of 10. Rating pain left arm. History of CHF, ACS. Multiple visits for chest pain. She also reports right-sided headache with a history of migraines and states today's head pain feels very similar. Denies worst headache of her life. No focal neural deficits. No neurological red flag findings. She reports cough and shortness of breath. Chronically on 4 L of oxygen. Patient comes from [facility] and rehab. Cardiac work-up and septic work-up was initiated. Diagnosed with COVID 2 weeks ago. Patient heart rate around 100 bpm. She is not afebrile. 98% on 4 L chronically. Does not need increased supplemental oxygen at this time. Blood cultures pending. CBC showed a white blood count at 17. She is currently on prednisone. She does report a cough. Chest x-ray was ordered to rule out pneumonia. EKG did not show any ST elevation or depression or new acute changes after evaluating previous EKGs. she denies of any leg swelling or feel like she is retaining fluids. Denies increase shortness of breath with exertion. Patient received 2 sublingual nitro with resolution of pain. She is requesting something for headache and was given a migraine cocktail with improvement of her head pain. creatinine was 1.39 close to her baseline. Blood sugar 225. Normal lactic acid. Troponin and BNP negative. Recent COVID added a D-dimer which was negative. Chest x-ray showed cardiomegaly with a suspected right small pleural effusion. Patient is currently on butenamide. She does not clinically look fluid overload. Due to the week long chest pain would suspect elevated troponin at this time. At this time a 2-hour troponin was ordered. Delta troponin was negative. Patient had a cardiac cath in 2021 that showed Dilated coronary system with mild ectasia in the LAD, nonobstructive disease. EF 55 to 60% in aust of 2021 with chronic diastolic heart failure. she was wanting to go home after discussing observation with cardiac work-up. Concern for a COPD exacerbation component with the cough and shortness of breath. She is not requiring increased oxygen at this time. Will discharge with doxycycline prophylactically. She states she feels much better at this time. Recommend outpatient cardiology follow-up. Continue management of your chronic headaches Impression Primary Impression: Chest pain Additional Impressions: Migraine COPD exacerbation Disposition: HOME, SELF-CARE Condition: Stable Departure-Patient Inst. Decision time for Depature: 17:31 Referrals: [facility] [place] Primary Care Physician Patient Instructions: Chest Pain Add. Discharge Instructions: Need to follow-up with Dr. Auguste regarding chest pain. Recommend follow-up with your primary care physician to discuss your migraines. Continue with your daily medication. All discharge instructions reviewed with patient and/or family. Voiced und erstanding. Scripts Doxycycline Monohydrate (Doxycycline Monohydrate) 100 Mg Tablet 100 MG PO BID for 7 Days, #14 TAB Prov: SUNITHA PATEL 11/22/22 SUNITHA PATEL Nov 22, 2022 14:30
[2022-11-22 14:34] LABS: BASOPHILS % (AUTO) 0 % (0-10); EOSINOPHILS # (AUTO) 0.1 10^3/uL (0.0-0.3); EOSINOPHILS % (AUTO) 1 % (0-10); HEMATOCRIT 38 % (35-52); HEMOGLOBIN 11.5 g/dL (11.5-16.0); LYMPHOCYTES # (AUTO) 1.9 10^3/uL (1.0-4.0); LYMPHOCYTES % (AUTO) 11 % (12-44); MEAN CORPUSCULAR HEMOGLOBIN 25 pg (25-34); MEAN CORPUSCULAR HGB CONC 31 g/dL (32-36); MEAN CORPUSCULAR VOLUME 82 fL (80-99); MEAN PLATELET VOLUME 10.2 fL (9.0-12.2); MONOCYTES % (AUTO) 6 % (0-12); NEUTROPHILS # (AUTO) 14.1 10^3/uL (1.8-7.8); NEUTROPHILS % (AUTO) 82 % (42-75); PLATELET COUNT 347 10^3/uL (130-400); WHITE BLOOD COUNT 17.3 10^3/uL (4.3-11.0)
[2022-11-22 14:47] LABS: CHLORIDE 100 MMOL/L (98-107); POTASSIUM 3.9 MMOL/L (3.6-5.0); SODIUM 138 MMOL/L (135-145)
[2022-11-22 14:49] LABS: CALCIUM 9.3 MG/DL (8.5-10.1); INR 0.9 (0.8-1.4); PROTHROMBIN TIME PATIENT 12.3 SEC (12.2-14.7)
[2022-11-22 14:50] LABS: GLUCOSE 225 MG/DL (70-105); TOTAL PROTEIN 7.4 GM/DL (6.4-8.2)
[2022-11-22 14:51] LABS: CARBON DIOXIDE 26 MMOL/L (21-32)
[2022-11-22 14:52] LABS: BILIRUBIN,TOTAL 0.2 MG/DL (0.1-1.0)
[2022-11-22 14:53] LABS: ALKALINE PHOSPHATASE 125 U/L (40-136)
[2022-11-22 14:54] LABS: CREATININE SERUM 1.39 MG/DL (0.60-1.30); GFR ESTIMATED 44
[2022-11-22 14:55] LABS: BUN/CREATININE RATIO 8
[2022-11-22 14:56] LABS: ALANINE AMINOTRANSFERASE 20 U/L (0-55); MAGNESIUM 2.1 MG/DL (1.6-2.4)
[2022-11-22 14:58] LABS: BAND NEUTROPHILS 0 %; BASOPHILS % (MANUAL) 0 %; EOSINOPHILS % (MANUAL) 1 %; LIPASE 21 U/L (8-78); LYMPHOCYTES % (MANUAL) 17 %; MONOCYTES % (MANUAL) 6 %; NEUTROPHILS % (MANUAL) 76 %; RBC MORPH NORMAL
[2022-11-22] MEDS ORDERED: ONDANSETRON INJECTION 4 MG/2 ML (SDV) IVP ONE (15:15)
--- NOTE | 2022-11-22 15:29 | Diagnostic Imaging Report ---
HISTORY: Chest pain. COMPARISON: 08/05/2022. TECHNIQUE: Frontal view of the chest. FINDINGS: Lungs are difficult to evaluate due to overlying soft tissue and body habitus. There is haziness throughout the lung bases. There may be a small left pleural effusion. There appears to be cardiomegaly with central vascular congestion. No pneumothorax is seen. IMPRESSION: Cardiomegaly with central vascular congestion. Suspect small left pleural effusion. Dictated by: Dictated on workstation # [id number]
[2022-11-22] MEDS ORDERED: morphine INJ 10 MG/ML 1ML (SYR OR VIAL) IVP ONE (15:45)
[2022-11-22] MEDS ORDERED: diphenhydrAMINE INJ 50 MG/ML VIAL IVP ONE (16:15)
[2022-11-22] MEDS ORDERED: KETOROLAC INJ 30 MG/ML VIAL IVP ONE (16:15)
[2022-11-22] MEDS ORDERED: PROCHLORPERAZINE INJ 10 MG/2ML VIAL IV ONE (16:15)
[2022-11-22] MEDS ORDERED: ACETAMINOPHEN 500 MG TABLET PO ONE (17:30)
[2022-11-22] MEDS ORDERED: DOXY100T31 PO (17:33)
[2022-11-22 17:50] VITALS: BP 125/83
== END 2022-11-22 17:50 | disposition home or self-care (01) ==
LOC: EDUNIT# 14:17 → ER 14:20
DX: J44.1 Chronic obstructive pulmonary disease with (acute) exacerbation (principal); G43.909 Migraine, unspecified, not intractable, without status migrainosus; E11.9 Type 2 diabetes mellitus without complications; E66.01 Morbid (severe) obesity due to excess calories; G47.30 Sleep apnea, unspecified; F17.290 Nicotine dependence, other tobacco product, uncomplicated; Z99.89 Dependence on other enabling machines and devices; Z99.81 Dependence on supplemental oxygen; Z68.35 Body mass index [BMI] 35.0-35.9, adult; Z79.4 Long term (current) use of insulin
CPT/HCPCS: 36415; 71045; 80053; 83605; 83690; 83735; 83874; 83880; 84484; 85007; 85027; 85379; 85610; 85730; 87040; 93005; 93041; 94640

== ENCOUNTER 2023-01-14 05:46 | Outpatient (CLI) | payer MEDICARE, MEDICAID ==
[~2023-01-14] VITALS: Ht 175.3 cm; Wt 136.5 kg
[~2023-01-14 05:46] MED LIST changes: +DOXY100T31 PO; -OXYB5TAB13 PO; +OXYB5TAB14 PO
[2023-01-19] MEDS ORDERED: OLAN10TA71 PO (14:09)
[2023-01-19] MEDS ORDERED: FLUT1BLS3 IH (14:09)
[2023-01-19] MEDS ORDERED: DULA0.75 SQ (14:09)
== END 2023-01-19 14:21 | disposition home or self-care (01) ==
LOC: PREOP 05:46
PROVIDERS: ATTEND Surgery
DX: Z01.818 Encounter for other preprocedural examination (principal)

== ENCOUNTER 2023-01-27 11:38 | Day surgery (SDC) | payer MEDICARE, MEDICAID ==
[~2023-01-27] VITALS: Ht 175.3 cm; Wt 136.5 kg
[2023-01-27] MEDS ORDERED: LACTATED RINGERS 1,000 ML 1,000 ML IV STA (11:53)
[2023-01-27 12:05] VITALS: BP 120/80
--- NOTE | 2023-01-27 13:18 | Progress Note-Pre Operative ---
Pre-Operative Progress Note Date H&P Reviewed: Jan 27, 2023 Time H&P Reviewed: 13:18 History & Physical: H&P Reviewed, Patient Examed, No changes noted Pre-Operative Diagnosis: H/o colon polyps JOVANNA RAMOS DO Jan 27, 2023 13:18
[2023-01-27] MEDS ORDERED: proPOfol INJECTION 200 MG/20 ML VIAL IV ONE (14:38)
--- NOTE | 2023-01-27 14:53 | Progress Note-Post Operative ---
Post-Operative Progess Note Surgeon (s)/Flying Instructor (s) Surgeon JOVANNA RAMOS DO Flying Instructor: n/a Pre-Operative Diagnosis H/o colon polyps Post-Operative Diagnosis incomplete colonoscopy Procedure & Operative Findings Date of Procedure 01/27/23 Procedure Performed/Findings incomplete colonoscopy Anesthesia Type per LEATHER COATER Estimated Blood Loss Estimated blood loss (mL): none Specimens/Packing Specimens Removed none JOVANNA RAMOS DO Jan 27, 2023 14:53
[2023-01-27 14:55] VITALS: BP 127/70
--- NOTE | 2023-01-27 14:56 | Discharge Inst-Simple/Standard ---
Discharge Inst-Standard Patient Instructions/Follow Up Plan of Care/Instructions/FU: clear liquids today abdomen/pelvis CT with rectal contrast tomorrow follow up himanshu 2 weeks Activity as Tolerated: Yes Discharge Diet: Liquid Diet JOVANNA RAMOS DO Jan 27, 2023 14:55
[2023-01-27 15:05] VITALS: BP 127/70
--- NOTE | 2023-01-27 15:18 | Anesthesia-General Post-Op ---
MAC Patient Condition Mental Status/LOC: Same as Preop Cardiovascular: Satisfactory Nausea/Vomiting: Absent Respiratory: Satisfactory Pain: Controlled Complications: Absent Post Op Complications Complications None Follow Up Care/Instructions Patient Instructions None needed. Anesthesiology Discharge Order Discharge Order Patient is doing well, no complaints, stable vital signs, no apparent adverse anesthesia problems. No complications reported per nursing. RASHIDA AMEZQUITA CRNA Jan 27, 2023 15:18
[2023-01-27 15:35] VITALS: BP 127/70
--- NOTE | 2023-01-27 22:08 | OPERATIVE REPORT ---
DATE OF SERVICE: 01/27/2023 PREOPERATIVE DIAGNOSIS: History of polyps. POSTOPERATIVE DIAGNOSIS: Incomplete colonoscopy. SURGEON: Jovanna Hester DO ANESTHESIA: Per MEDICAL INSURANCE CODING SPECIALIST. ESTIMATED BLOOD LOSS: None. COMPLICATIONS: None. INDICATIONS: The patient is a 57-year-old female with a history of polyps. She understands risks and benefits of procedure and wished to proceed. Consent was signed in chart. DESCRIPTION OF PROCEDURE: The patient was taken to endoscopy suite, placed in left lateral recumbent position. Timeout was performed. Digital rectal exam was performed. No palpable polyps, masses or ulcerations. Scope was inserted in the rectum and started to be advanced all the way towards the cecum. Guide into the ascending colon, was unable to get into the cecum. Multiple attempts of repositioning the patient in [ ] were performed and continued to tried to manipulate the scope to go further into the cecum, but unsuccessful. At this time, scope was then slowly retracted back. Prep was moderate, but which require lots of irrigation and suction. Scope was then slowly retracted back from the ascending colon. There were no polyps, masses or ulcerations visualized in the ascending, transverse, descending and sigmoid colon. Once in the rectum, scope was retroflexed noting no other pathology. Scope was returned to its normal position, slowly withdrawn until completely removed. RECOMMENDATIONS: The patient will stay on clear liquid diet. We will get CT scan of the abdomen and pelvis with rectal contrast tomorrow. Further recommendation pending repeat colonoscopy in 5 years. Job ID: [id number] DocumentID: [id number] Dictated Date: 01/27/2023 14:54:26 Cna Gna Date: 01/27/2023 22:06:00 Dictated By: JOVANNA HESTER DO
== END 2023-01-27 15:35 | disposition home or self-care (01) ==
LOC: ENDO 11:38
PROVIDERS: ATTEND Surgery
DX: Z12.11 Encounter for screening for malignant neoplasm of colon (principal); E66.01 Morbid (severe) obesity due to excess calories; Z68.41 Body mass index [BMI] 40.0-44.9, adult; G47.33 Obstructive sleep apnea (adult) (pediatric); Z87.891 Personal history of nicotine dependence

== ENCOUNTER → 2023-01-28 | Outpatient (CLI) | payer MEDICARE, MEDICAID ==
--- NOTE | 2023-01-28 10:14 | Diagnostic Imaging Report ---
PROCEDURE: CT abdomen and pelvis without contrast. TECHNIQUE: Multiple contiguous axial images were obtained through the abdomen and pelvis without the use of intravenous contrast. Auto Exposure Controls were utilized during the CT exam to meet ALARA standards for radiation dose reduction. INDICATION: Incomplete colonoscopy. CT angiogram abdomen pelvis was performed following rectal contrast administration images are taken supine as well as prone with multiplanar reconstructions. The colon is opacified throughout its length with reflux through the ileocecal valve into the distal ileum as well as opacifying normal appendix. No contrast extravasation. No findings of colonic rupture. No findings of a mural hematoma. There is significant but not pathologic tortuosity of the colon at and just below the hepatic flexure which would likely pose an impediment to optical colonoscopy. No appreciable filling defect, mass or findings to suggest colonic neoplasm. No diverticulitis or focal colitis. Small bowel nondilated there is a fatty umbilical hernia. The uterus and adnexa is unremarkable. There is trace amount of air in the bladder lumen likely from instrumentation. No bladder wall thickening. No perivesical edema. Kidneys unremarkable. Liver, gallbladder, bile ducts, spleen, adrenals and pancreas are unremarkable. The aorta is nonaneurysmal. There is no mesenteric or retroperitoneal lymphadenopathy. IMPRESSION: Unremarkable appearance of the colon. No obstruction, perforation, mass, diverticular disease or volvulation. No lymphadenopathy, ascites, hemorrhage or evidence for post colonoscopy complication. Noninflamed fatty umbilical hernia. Trace air in the bladder lumen of uncertain significance in etiology but likely from instrumentation. Dictated by: Dictated on workstation # [id number]
== END ==
LOC: RAD 08:56
PROVIDERS: ATTEND Surgery
DX: K42.9 Umbilical hernia without obstruction or gangrene (principal); R87.9 Unspecified abnormal finding in specimens from female genital organs
CPT/HCPCS: 74176